=== PATIENT | male | born 1950 | race Caucasian/White ===

== ENCOUNTER 2023-10-29 13:25 | Outpatient (OUT) | payer MEDICARE, OTHER, SELFPAY ==
--- NOTE | 2023-10-29 | CONS_ITS ---
CONSULTATION DATE: 10/29/2023 TO: Dr. Eloy Marin CHIEF COMPLAINT: Includes left lower back pain. HISTORY OF PRESENT ILLNESS: Review of systems, past medical/surgical history were obtained and documented on the health questionnaire and is available upon request. He is a 73-year-old male. He reports having had pain since May of 2023. It occurred spontaneously and increased gradually to its present state. He is now complaining of 2-7/10 pain, sharp in character with a shooting component, increased with activities such as standing, walking and performing transitioning maneuvers. He feels most comfortable in the semi-recumbent position. Denies any change in bowel and bladder habits or new sensorimotor changes in the lower extremities. CURRENT MEDICATIONS: Include prednisone 5 mg daily p.r.n. and glucosamine. His MEHRAN on today?s visit was 8%. EXAMINATION: Notable for patient having no clinical radiculopathy or myelopathy involving his lower extremities. Patient had severe pain with lumbar facet joint loading maneuvers occurring on the left side at L4-5, L5-S1 with associated myofascial spasm of his lumbar paravertebral muscles. IMPRESSION: Our impression is patient appears to have chronic pain secondary to lumbosacral spondylosis and facet loading pain clinically. RECOMMENDATIONS: I recommend the patient proceed with a diagnosis left sided L4-5, L5-S1 medial branch block under fluoroscopic guidance. I have placed him on baclofen for the myofascial spasm, 10 mg pills, half a pill to one pill b.i.d. as tolerated. As part of providing excellent, safe, comprehensive care, the following was completed at our patient's visit: 1. A medication reconciliation and review to ensure accurate knowledge of current/active medications, including asking our patients to inform us about any [id number] medications or herbal remedies/nutritional supplements/alternative remedies. 2. A review to specifically ensure our patients have had annual screening for: elevated body mass index (BMI, see intake chart for exact total), tobacco use, screening for depression, and screening for unhealthy alcohol use. When screening is concerning, patients are provided with education and the specific recommendation to discuss the concerning health issue and treatment options with their primary care provider. JESSE
== END 2023-10-29 13:26 | disposition home or self-care (01) ==
LOC: PM 13:26
PROVIDERS: PCP Family Medicine; Visit Provider Anesthesiology
DX: M47.816 Spondylosis without myelopathy or radiculopathy, lumbar region (principal); M54.50 Low back pain, unspecified
CPT/HCPCS: G0463

== ENCOUNTER 2023-11-12 06:59 | Day surgery (SDC) | payer MEDICARE, OTHER, SELFPAY ==
--- OUTSIDE RECORDS SUMMARY | 2023-11-12 07:05 | XMS_ITS | CCD ---
Author Name Unknown Address [id number] [place] [address] Organization [facility] Care Team Providers Care Pcu Rn Name Role Phone SONAM ZAMBRANO Consulting Unavailable ISACC, LINK Attending Unavailable ISACC, LINK Admitting Unavailable WHITNEY, DR LORENZO Dailey Primary Care Unavailable WHITNEY, DR LORENZO Dailey Primary Care Unavailable DINORAH, DR SHANTEL Michael Consulting Unavailable ISACC, LINK Attending Unavailable ISACC, LINK Admitting Unavailable PAWANANDER, LINK Consulting Unavailable JOHANA CAMILO Consulting Unavailable CESAR MALDONADO Consulting Unavailable SAMANTHA, LAKSHIM Consulting Unavailable PAWANANDER, LINK Attending Unavailable DAMASO, DR DEBORAH Jack Consulting Unavailable PAWANANDER, LINK Admitting Unavailable ISACC, LINK Consulting Unavailable WHITNEY, DR LORENZO Dailey Primary Care Unavailable ISACC, LINK Attending Unavailable ISACC, LINK Consulting Unavailable ISACC, LINK Admitting Unavailable Lorenzo OLSON Primary Care Physician Lucy Bhatti Unavailable Unavailable Christie Lemus Unavailable Unavailable Lorenzo Olson DO Primary Care Provider Lorenzo Olson DO Primary Care Provider Sera Welch Unavailable Unavailable THALIA TROY Referring Unavailable THALIA TROY Attending Unavailable THALIA TROY Attending Unavailable THALIA TROY Referring Unavailable DO Lorenzo Olson Primary Care Provider MD Nick Anderson Attending Provider Nick Anderson MD Unavailable Dania Vásquez MD Unavailable [phone] Wild [employer] SUPERVISOR.REMARKETING REP, Ryan Unavailable [phone] Gerald VAUGHAN, Denisha Unavailable WHITNEYLORENZO Primary Care Unavailable HANG MAIER Attending Unavailable WHITNEY, LORENZO Dailey Primary Care Unavailable HANG MAIER Attending Unavailable HANG MAIER Admitting Unavailable [place] VAUGHAN, Chelsie Dahl Unavailable Unavailable Darin Valencia Unavailable Whitney, Lorenzo Dailey Primary Care Provider JM Torres Attending Provider DEBORAH NORMAN Referring Unavailable WHITNEY, LORENZO Dailey Primary Care Unavailable Whitney , Lorenzo Dailey Primary Care Provider Gerald VAUGHAN, Denisha Unavailable [phone] [place] VAUGHAN, Chelsie Dahl Unavailable Unavailable Lorenzo OLSON Primary Care Physician [phone] Whitney, Lorenzo Dailey Primary Care Provider JM Torres Attending Provider WhitneyLorenzo Primary Care Unavailable Torres, Valencia Admitting Unavailable Darin Valencia Attending Unavailable Lorenzo Olson Primary Care Unavailable Nick Anderson Admitting Unavailable Nick Anderson Attending Unavailable Darin Valencia Admitting Unavailable Valencia Torres Attending Unavailable Lorenzo Olson Primary Care Unavailable Torres, Valencia Admitting Unavailable Valencia Torres Attending Unavailable Lorenzo Olson Primary Care Unavailable CHELSIE FERNANDO Attending Unavailable NONE, XXXX Referring Unavailable Santiago Kong Admitting Unavaila Santiago Floewr Attending Unavaila Corey Bob Admitting Unavailable Corey MCKEE Attending Unavailable Corey MCKEE Referring Unavailable STANDania, ARACELY Cyndee L Referring Unavailable Santiago Kong Consulting Unavaila ble STANDania, REMARKETING REP Cyndee L Admitting Unavailable STANDania, REMARKETING REP Cyndee L Attending Unavailable Santiago Kong Consulting Unavaila ble Santiago Kong Consulting Unavaila ble Lorenzo OLSON Attending Unavailable Corey MCKEE Attending Unavailable Corey MCKEE Attending Unavailable Bryon Cruz Admitting Unavailable Bryon Cruz Attending Unavailable Ryan Hollis Admitting Unavailable Ryan Hollis Attending Unavailable Ryan Hollis Referring Unavailable Yuridia Houser Attending Unavailable WHITNEY Lorenzo Asim Referring Unavailable LUZ Torres Admitting UnavailCyndee Ayers Attending Unavailable MD Bryon Cruz Admitting Unavailable VALENCIA TORRES Referring Unavailable Bryon Cruz Attending Unavailable Bryon Cruz Attending Unavailable Bryon Cruz Referring Unavailable NONE, XXXX Referring Unavailable STANG, REMARKETING REP Cyndee L Admitting Unavailable STANDania, REMARKETING REP Cyndee L Attending Unavailable WHITNEY, LORENZO S Primary Care Unavailable WHITNEY, [facility] Primary Care Unavailable NICK ANDERSON Referring Unavailable WHITNEY, [facility] Primary Care Unavailable NICK ANDERSON Referring Unavailable WHITNEY, [facility] Primary Care Unavailable NICK ANDERSON Attending Unavailable NICK ANDERSON Referring Unavailable WHITNEY, [facility] Primary Care Unavailable DEBORAH NORMAN Attending Unavailable NICK ANDERSON Referring Unavailable WHITNEY, [facility] Primary Care Unavailable NICK ANDERSON Referring Unavailable WHITNEY, [facility] Primary Care Unavailable NICK ANDERSON Referring Unavailable NICK ANDERSON Attending Unavailable WHITNEY, [facility] Primary Care Unavailable RYAN HOLLIS Referring Unavailable WHITNEY, [facility] Primary Care Unavailable WHITNEY, [facility] Primary Care Unavailable NICK ANDERSON Referring Unavailable WHITNEY, [facility] Primary Care Unavailable DEBORAH NORMAN Referring Unavailable WHITNEY, [facility] Primary Care Unavailable NICK ANDERSON Attending Unavailable NICK ANDERSON Referring Unavailable WHITNEY, [facility] Primary Care Unavailable DEBORAH NORMAN Referring Unavailable WHITNEY, [facility] Primary Care Unavailable NICK ANDERSON Referring Unavailable WHITNEY, [facility] Primary Care Unavailable WHITNEY, [facility] Primary Care Unavailable Dania VÁSQUEZ Attending Unavailable WHITNEY, [facility] Primary Care Unavailable NICK ANDERSON Attending Unavailable WHITNEY, [facility] Primary Care Unavailable NICK ANDERSON Referring Unavailable RYAN HOLLIS Attending Unavailable WHITNEY, [facility] Primary Care Unavailable NICK ANDERSON Referring Unavailable WHITNEY, [facility] Primary Care Unavailable NICK ANDERSON Referring Unavailable WHITNEY, [facility] Primary Care Unavailable WHITNEY, [facility] Primary Care Unavailable HOA GURROLA Attending Unavailabl e WHITNEY, [facility] Primary Care Unavailable Dania VÁSQUEZ Attending Unavailable WHITNEY, [facility] Primary Care Unavailable MARIE KEY Referring Unavailable WHITNEY, [facility] Primary Care Unavailable MARIE KEY Referring Unavailable WHITNEY, [facility] Primary Care Unavailable DEBORAH NORMAN Referring Unavailable WHITNEY, [facility] Primary Care Unavailable WHITNEY, [facility] Primary Care Unavailable NICK ANDERSON Referring Unavailable WHITNEY, LORENZO S Primary Care Unavailable NICK ANDERSON Referring Unavailable WHITNEY, LORENZO S Primary Care Unavailable NICK ANDERSON Referring Unavailable WHITNEY, LORENZO S Primary Care Unavailable WHITNEY, LORENZO S Primary Care Unavailable NICK ANDERSON Referring Unavailable NICK ANDERSON Attending Unavailable WHITNEY, LORENZO S Primary Care Unavailable NICK ANDERSON Referring Unavailable WHITNEY, LORENZO S Primary Care Unavailable WHITNEY, LORENZO S Primary Care Unavailable Dania VÁSQUEZ Attending Unavailable WHITNEY, LORENZO S Primary Care Unavailable NICK ANDERSON Referring Unavailable WHITNEY, LORENZO S Primary Care Unavailable NICK ANDERSON R Referring Unavailable WHITNEY, LORENZO S Primary Care Unavailable WHITNEY, LORENZO S Primary Care Unavailable NICK ANDERSON Attending Unavailable NICK ANDERSON Referring Unavailable WHITNEY, LORENZO S Primary Care Unavailable NICK ANDERSON Referring Unavailable WHITNEY, LORENZO S Primary Care Unavailable NICK ANDERSON Referring Unavailable WHITNEY, LORENZO S Primary Care Unavailable NICK ANDERSON Referring Unavailable RYAN HOLLIS Attending Unavailable WHITNEY, LORENZO S Primary Care Unavailable NICK ANDERSON Referring Unavailable WHITNEY, LORENZO S Primary Care Unavailable HOA GURROLA Attending UnavailNICK Shane Referring Unavailable WHITNEY, LORENZO S Primary Care Unavailable NICK ANDERSON Referring Unavailable WHITNEY, LORENZO S Primary Care Unavailable MERT KRUEGER Attending Unavailable RYAN HOLLIS Referring Unavailable WHITNEY, LORENZO S Primary Care Unavailable WHITNEY, LORENZO S Primary Care Unavailable WHITNEY, LORENZO S Primary Care Unavailable Dania VÁSQUEZ Attending Unavailable WHITNEY, LORENZO S Primary Care Unavailable Dania VÁSQUEZ Attending Unavailable WHITNEY, LORENZO S Primary Care Unavailable WHITNEY, LORENZO S Primary Care Unavailable WHITNEY, LORENZO S Primary Care Unavailable NICK ANDERSON Referring Unavailable WHITNEY, LORENZO S Primary Care Unavailable NICK ANDERSON Referring Unavailable WHITNEY, LORENZO S Primary Care Unavailable NICK ANDERSON Attending Unavailable NICK ANDERSON Referring Unavailable WHITNEY, LORENZO S Primary Care Unavailable NICK ANDERSON Referring Unavailable WHITNEY, LORENZO S Primary Care Unavailable NICK ANDERSON Referring Unavailable NICK ANDERSON Attending Unavailable WHITNEY, LORENZO S Primary Care Unavailable NICK ANDERSON Referring Unavailable WHITNEY, LORENZO S Primary Care Unavailable Dania VÁSQUEZ Attending Unavailable WHITNEY, LORENZO S Primary Care Unavailable NICK ANDERSON Attending Unavailable NICK ANDERSON Referring Unavailable WHITNEY, LORENZO S Primary Care Unavailable NICK ANDERSON Referring Unavailable WHITNEY, LORENZO S Primary Care Unavailable NICK ANDERSON Referring Unavailable WHITNEY, LORENZO S Primary Care Unavailable WHITNEY, LORENZO S Primary Care Unavailable WHITNEY, LORENZO S Primary Care Unavailable NICK ANDERSON Attending Unavailable WHITNEY, LORENZO S Primary Care Unavailable WHITNEY, LORENZO S Primary Care Unavailable WHITNEY, LORENZO S Primary Care Unavailable MARK VALLADARES Attending Unavailable MARK VALLADARES Admitting Unavailable WHITNEY, LORENZO S Primary Care Unavailable RENEE TAYLOR Attending Unavailable EMERSON, DEBORAH Referring Unavailable WHITNEY, LORENZO S Primary Care Unavailable DEBORAH GOMEZ Attending Unavailable EMERSON, DEBORAH Referring Unavailable WHITNEY, LORENZO Dailey Primary Care Unavailable EMERSON, DEBORAH Referring Unavailable SYBIL PROCTOR Attending Unavailable WHITNEY, LORENZO S Primary Care Unavailable Allergies Allergy Classification Reported Allergen(s) Allergy Type Date of Onset Reaction(s) Facility (1 source) Penicillin; 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: [penicillin] Drug Allergy [facility] Repository Medications Current Medications Medication Drug Class(es) Dates Sig (Normalized) Sig (Original) acetaminophen 325 mg / HYDROcodone bitartrate 5 mg oral tablet (20 sources) Opioid Agonist Start: 04-02-2023 Coggon 325 mg-5 mg oral tablet 1 tab(s), Oral, q6hr as needed for pain, 10 tab(s), Refill(s) 0, [facility] #[id number], 188, cm, 04/02/23 10:50:00 EDT, Height/Length Dosing, 100, kg, 04/02/23 10:50:00 EDT, Weight Dosing Start Date: 04/02/23 Status: Ordered Start: 03-18-2023 Coggon 325 mg-5 mg oral tablet 1 tab(s), Oral, q6hr as needed for pain, 10 tab(s), Refill(s) 0, [facility] #[id number], 188, cm, 03/18/23 10:50:00 EDT, Height/Length Dosing, 111, kg, 03/18/23 10:50:00 EDT, Weight Dosing Start Date: 03/18/23 Status: Ordered Start: 10-24-2022 acetaminophen- hydrocodone 325 mg-5 mg oral tablet Refill(s) 0 Start Date: 10/24/22 Status: Ordered Start: 10-08-2022 End: 07-09-2023 take 1 tablet by mouth every eight hours as needed for pain HYDROcodone-acetaminophen (NORCO) 5-325 mg per tablet Indications: Rectal adenocarcinoma (HCC) Take 1 tablet by mouth every 8 hours as needed for pain. 30 tablet 0 10/23/2022 07/09/2023 Discontinued Comment on above: Take 1 tablet by blake th every 8 hours as needed for pain. ascorbic acid 1000 mg oral tablet (20 sources) Vitamin C Start: 10-22-2019 take 1000 mg by mouth once daily Vitamin C 1,000 mg, Oral, Daily, Refills(s) 0, Prophylaxis Start Date: 10/22/19 Status: Ordered take 1 tablet by mouth twice igor ly Ascorbic Acid 100 mg tablet Take 100 mg by mouth twice daily. 0 Active take 1 tablet by mouth once opal y Ascorbic Acid 100 mg tablet Take 100 mg by mouth once daily. 0 Active Comment on above: Take 100 mg by mouth once daily. Take 100 mg by mouth twice daily. Azithromycin (15 sources) Macrolide Antimicrobial Start: 10-09-2023 azithromycin 250 mg Tab Refills(s) 0 Start Date: 10/09/23 Status: Ordered Start: 03-18-2023 End: 03-23-2023 azithromycin (ZITHROMAX) 250 mg tablet Take by mouth. 0 03/18/2023 03/23/2023 Active Start: 09-24-2022 End: 10-02-2022 take 2 tablets by mouth once daily, then take 1 tablet by mouth once daily azithromycin (ZITHROMAX Z-PA) 250 mg tablet Take two (2) tablets by mouth the first day and then one (1) tablet daily for 4 days. 6 tablet 0 09/24/2022 10/02/2022 Discontinued Comment on above: Take two (2) tablets by mouth the first day and then one (1) tablet daily for 4 days. Take by mouth. Chondroitin Sulfate (5 sources) Chondroitin Sulf ate Active Chondroitin Sulfates / Glucosamine (20 sources) Start: 02-13-20 Glucosamine Chondroitin 1500mg/1200mg, Oral, Daily, Refill(s) 0, Prophylaxis Start Date: 02/12/19 Status: Ordered cyclobenzaprine hydrochloride 5 mg oral tablet (20 sources) Muscle Relaxant Start: 06-18-20 take 1 tablet by mouth every twenty-four hours Cyclobenzaprine HCl 5 MG 1 tablet at bedtime as needed Orally Once a day for 30 day(s) May, Active Start: 03-18-2023 cyclobenzaprin e (FLEXERIL) 10 mg tablet Take 10 mg by mouth. 0 03/18/2023 Active Comment on above: Take 10 mg by mouth. diphenhydrAMINE hydrochloride 25 mg oral capsule (5 sources) Histamine-1 Receptor Antagonist take 1 capsule by mouth every twenty-four hours diphenhydrAMINE HCl 25 MG 1 capsule at bedtime as needed Orally Once a day Active enteric contrast (will be provided with radiology test) (20 sources) Start: 06-25-20 End: 06-26-20 enteric contrast (will be provided with radiology test) For CT Chest Abdomen W IVCON order Administer, As Directed One Time Only, via Oral, Rectal, both Oral and Rectal, Enteric Tube, Stoma or Indwelling Catheter, Enteric Contrast as designated per enteric contrast guidelines 1 Each 0 06/25/2023 06/26/2023 Active Start: 05-03-2023 End: 05-04-2023 enteric contrast (will be pr ovided with radiology test) For CT Chest Abdomen W IVCON order Administer, As Directed One Time Only, via Oral, Rectal, both Oral and Rectal, Enteric Tube, Stoma or Indwelling Catheter, Enteric Contrast as designated per enteric contrast guidelines 1 Each 0 05/03/2023 05/04/2023 Active Start: 05-03-[address] (will be provided with radiology test) MRI RECTUM WO/W. Administer, As Directed One Time Only, via Oral, Rectal, both Oral and Rectal, Enteric Tube, Stoma or Indwelling Catheter, Enteric Contrast as designated per enteric contrast guidelines 1 Each 0 05/03/2023 Active Start: 02-07-[address] (will be provided with radiology test) MRI RECTUM WO/W. Administer, As Directed One Time Only, via Oral, Rectal, both Oral and Rectal, Enteric Tube, Stoma or Indwelling Catheter, Enteric Contrast as designated per enteric contrast guidelines 1 Each 0 02/07/2023 Active Start: 11-19-2022 End: 11-20-2022 enteric contrast (will be pr ovided with radiology test) For CT CHESTABD/PEL W IVCON Routine order Administer, As Directed One Time Only, via Oral, Rectal, both Oral and Rectal, Enteric Tube, Stoma or Indwelling Catheter, Enteric Contrast as designated per enteric contrast guidelines 1 Each 0 11/19/2022 11/20/2022 Active Comment on above: For CT CHESTABD/PEL W IVCON Routine order Administer, As Directed One Time Only, via Oral, Rectal, both Oral and Rectal, Enteric Tube, Stoma or Indwelling Catheter, Enteric Contrast as designated per enteric contrast guidelines MRI RECTUM WO/W. Adm inister, As Directed One Time Only, via Oral, Rectal, both Oral and Rectal, Enteric Tube, Stoma or Indwelling Catheter, Enteric Contrast as designated per enteric contrast guidelines For CT Chest Abdomen W IVCON order Administer, As Directed One Time Only, via Oral, Rectal, both Oral and Rectal, Enteric Tube, Stoma or Indwelling Catheter, Enteric Contrast as designated per enteric contrast guidelines finasteride 5 mg oral tablet (20 sources) 5-alpha Reductase Inhibitor Start: 3 End: 3 finasteride (PROSCAR) 5 mg tablet Take by mouth once daily. 0 10/24/2022 10/19/2023 Active Comment on above: Take by mouth. Take by mouth once d aily. folic acid 1 mg oral tablet (20 sources) Start: 1 take 1 tablet by mouth once daily folic acid 1 mg Tab 1 mg = 1 tab(s), Oral, Daily, tab(s), Refills(s) 0, Prophylaxis Start Date: 04/16/11 Status: Ordered Comment on above: Take 1 mg by mouth o nce daily. gabapentin 100 mg oral capsule (8 sources) Anti-epileptic Agent Start: 3 gabapentin 100 mg Cap 100 mg = 1 cap(s), Refills(s) 0 Start Date: 10/09/23 Status: Ordered Start: 07-16-2023 take 1 capsule by [facility] every twenty-four hours Gabapentin 100 MG 1 capsule Orally Once a day for 30 day(s) Jun, Active Start: 06-20-2023 End: 07-20-2023 take 1 capsule by mouth once daily at bedtime gabapentin (NEURONTIN) 300 mg capsule Take 1 capsule by mouth daily at bedtime for 30 days. 30 capsule 0 06/20/2023 Active Comment on above: Take 1 capsule by mo [facility] daily at bedtime for 30 days. glucosamine hydrochloride 1500 mg oral tablet (20 sources) take 1 tablet by mouth once daily Glucosamine HCl 1500 MG 1 tablet Orally Once a day Active End: 12-20-2022 take 1 tablet by mouth once daily Glucosamine Sulfate 500 mg tab Take 1 tablet by mouth once daily. 0 12/20/2022 Discontinued Comment on above: Take 1 tablet by blake th. Take 1 tablet by blake th once daily. iv contrast (will be provided with radiology test) (20 sources) Start: 06-25-2023 End: 06-26-2023 iv contrast (will be provided with radiology test) CT Chest Abdomen-Inject, intravenously, once for 1 dose.No IV access, insert saline lock prior to the beginning of sedation, infusion, injection of imaging exam. Discontinue saline lock post exam. If Pt. has a central line or IVAD, may access for administration according to line specific nursing protocol. Once exam is complete flush line and de-access according to line specific nursing protocol in the CT contrast administration guidelines link. 1 Each 0 06/25/2023 06/26/2023 Active Start: 05-03-2023 End: 05-04-2023 iv contrast (will be provide d with radiology test) CT Chest Abdomen-Inject, intravenously, once for 1 dose.No IV access, insert saline lock prior to the beginning of sedation, infusion, injection of imaging exam. Discontinue saline lock post exam. If Pt. has a central line or IVAD, may access for administration according to line specific nursing protocol. Once exam is complete flush line and de-access according to line specific nursing protocol in the CT contrast administration guidelines link. 1 Each 0 05/03/2023 05/04/2023 Active Start: 05-03-2023 iv contrast (w ill be provided with radiology test) MRI Rectum Inject, intravenously, once for 1 dose. No IV access, insert saline lock prior to the beginning of sedation, infusion, injection of imaging exam. Discontinue saline lock post exam. If Pt has a central line or IVAD, may access for administration according to line specific nursing protocol. Once exam is complete flush line and de-access according to line specific nursing protocol in the MR contrast administration guidelines link. 1 Each 0 05/03/2023 Active Start: 02-07-2023 iv contrast (w ill be provided with radiology test) MRI Rectum Inject, intravenously, once for 1 dose. No IV access, insert saline lock prior to the beginning of sedation, infusion, injection of imaging exam. Discontinue saline lock post exam. If Pt has a central line or IVAD, may access for administration according to line specific nursing protocol. Once exam is complete flush line and de-access according to line specific nursing protocol in the MR contrast administration guidelines link. 1 Each 0 02/07/2023 Active Start: 11-19-2022 End: 11-20-2022 iv contrast (will be provide d with radiology test) CT Chest ABD/PEL-Inject, intravenously, once for 1 dose.No IV access, insert saline lock prior to the beginning of sedation, infusion, injection of imaging exam. Discontinue saline lock post exam. If Pt. has a central line or IVAD, may access for administration according to line specific nursing protocol. Once exam is complete flush line and de-access according to line specific nursing protocol in the CT contrast administration guidelines link. 1 Each 0 11/19/2022 11/20/2022 Active Start: 09-17-2022 End: 09-18-2022 iv contrast (will be provide d with radiology test) MRI ABDOMEN Inject, intravenously, once for 1 dose. No IV access, insert saline lock prior to the beginning of sedation, infusion, injection of imaging exam. Discontinue saline lock post exam. If Pt. has a central line or IVAD, may access for administration according to line specific nursing protocol. Once exam is complete flush line and de-access according to line specific nursing protocol in the MR contrast administration guidelines link. 1 Each 0 09/17/2022 09/18/2022 Active Comment on above: MRI ABDOMEN Inject, intravenously, once for 1 dose. No IV access, insert saline lock prior to the beginning of sedation, infusion, injection of imaging exam. Discontinue saline lock post exam. If Pt. has a central line or IVAD, may access for administration according to line specific nursing protocol. Once exam is complete flush line and de-access according to line specific nursing protocol in the MR contrast administration guidelines link. CT Chest ABD/PEL-Inj ect, intravenously, once for 1 dose.No IV access, insert saline lock prior to the beginning of sedation, infusion, injection of imaging exam. Discontinue saline lock post exam. If Pt. has a central line or IVAD, may access for administration according to line specific nursing protocol. Once exam is complete flush line and de-access according to line specific nursing protocol in the CT contrast administration guidelines link. MRI Rectum Inject, i ntravenously, once for 1 dose. No IV access, insert saline lock prior to the beginning of sedation, infusion, injection of imaging exam. Discontinue saline lock post exam. If Pt has a central line or IVAD, may access for administration according to line specific nursing protocol. Once exam is complete flush line and de-access according to line specific nursing protocol in the MR contrast administration guidelines link. CT Chest Abdomen-Inj ect, intravenously, once for 1 dose.No IV access, insert saline lock prior to the beginning of sedation, infusion, injection of imaging exam. Discontinue saline lock post exam. If Pt. has a central line or IVAD, may access for administration according to line specific nursing protocol. Once exam is complete flush line and de-access according to line specific nursing protocol in the CT contrast administration guidelines link. leflunomide 10 mg oral tablet (20 sources) Antirheumatic Agent Start: 2010 End: 2021 take 10 mg by mouth once daily leflunomide 10 mg, Oral, Daily, Refills(s) 0, Other (see comment) Start Date: 04/16/11 Status: Ordered Comment on above: Take 10 mg by mouth once daily. methylPREDNISolone 4 mg tab dosepak (1 source) Start: 2022 take 1 tablet by mouth once methylPREDNISolone 4 mg tab dosepak = 1 packet(s), Oral, Once, as directed on package labeling, X 6 day(s), # 21 tab(s), Refills(s) 0 Start Date: 10/09/23 Status: Ordered MiraLax oral powder for reconstitution (2 sources) Start: 2021 MiraLax oral powder for reconstitution 17 gram, Oral, Daily, 527 gram, Refill(s) 0, dissolve in water before taking, [facility] JOYCELYN KNOX, 188, cm, 01/02/22 10:27:00 EDT, Height/Length Dosing, 112, kg, 01/02/22 10:27:00 EDT, Weight Dosing Start Date: 01/02/22 Status: Ordered ondansetron 4 mg oral tablet (20 sources) Serotonin-3 Receptor Antagonist Start: 2022 take 2 tablets by mouth every eight hours as needed for nausea ondansetron 4 mg Tab 8 mg = 2 tab(s), Oral, q8hr, PRN Nausea, Refills(s) 0 Start Date: 05/07/23 Status: Ordered Start: 10-01-2022 End: 07-09-2023 take 1 tablet by mouth every eight hours as needed ondansetron (ZOFRAN) 8 mg tablet Take 1 tablet by mouth every 8 hours as needed for nausea/vomiting. 90 tablet 1 10/01/2022 07/09/2023 Discontinued take 1 tablet by blake th once daily as needed Ondansetron 8 MG 1 tablet on the tongue and allow to dissolve as needed Orally Once a day Active Comment on above: Take 1 tablet by blake th every 8 hours as needed for nausea/vomiting. polyethylene glycol 3350 [id number] mg powder for oral solution (7 sources) Osmotic Laxative Start: MiraLax oral powder for reconstitution 17 gram, Oral, Daily, 527 gram, Refill(s) 0, dissolve in water before taking, [facility], 188, cm, 01/02/22 10:27:00 EDT, Height/Length Dosing, 112, kg, 01/02/22 10:27:00 EDT, Weight Dosing Start Date: 01/02/22 Status: Ordered potassium citrate 10 meq extended release oral tablet (13 sources) Start: End: take 1 tablet by mouth twice daily potassium CITRATE 10 mEq ER Tab 10 mEq, 1 tab(s), Oral, BID, 180 tab(s), Refill(s) 3, [facility], [facility], cm, 09/28/21 13:33:00 EST, Height/Length Dosing, 112.4, kg, 09/28/21 13:33:00 EST, Weight Dosing Start Date: 09/28/21 Status: Ordered Start: 09-28-2021 take 1 tablet by blake th twice daily potassium CITRATE 10 mEq ER Tab 10 mEq, 1 tab(s), Oral, BID, 180 tab(s), Refill(s) 3, [facility], 188, cm, 09/28/21 13:33:00 EST, Height/Length Dosing, 112.4, kg, 09/28/21 13:33:00 EST, Weight Dosing Start Date: 09/28/21 Status: Ordered Comment on above: Take by mouth. predniSONE 5 mg oral tablet (20 sources) Start: 04-02-2023 predniSONE 10 mg Tab 0 = 1 -, Oral, As Directed, Take 5 tabs by mouth daily x3 days, 4 daily x3 days, 3 daily x3 days, 2 daily x3 days, then 1 tab daily x3 days., # 45 tab(s), Refills(s) 0, Pharmacy: [facility] #[id number], 188, cm, 04/02/23 10:50:00 EDT, Height/Length Dosing, 1... Start Date: 04/02/23 Status: Ordered Start: 09-28-2022 [facility] 5 tablets by [facility] once daily, then take 4 tablets by mouth once daily, then take 3 tablets by mouth once daily, then take 2 tablets by mouth once daily, then take 1 tablet by mouth once daily predniSONE 10 mg Tab See Instructions, Take 5 tabs by mouth daily x3 days, 4 daily x3 days, 3 daily x3 days, 2 daily x3 days, then 1 tab daily x3 days., # 45 tab(s), Refills(s) 0, Pharmacy: [facility]/pharmacy #[id number], 187.6, cm, 08/20/22 7:01:00 EDT, Height/Length Dosing, 112.5,... Start Date: 09/28/22 Status: Ordered Start: 09-03-2022 predniSONE (DE LTASONE) 10 mg tablet 5 mg. 0 09/03/2022 Active Start: 09-03-2022 predniSONE (DE LTASONE) 10 mg tablet Start: 08-14-2022 take 1 tablet by blake once daily predniSONE (DELTASONE) 5 mg tablet Take 5 mg by mouth once daily. 0 09/03/2022 Active Start: 07-09-2022 predniSONE 10 mg Tab See Instructions, 6 tabs for 2 days,5 tabs for 2 days,4 tabs for 2 days,3 tabs for 2 days,2 tabs for 2 days,1 tab for 2 days, # 42 tab(s), Refills(s) 1, Pharmacy: [facility], 189, cm, 05/31/22 10:57:00 EDT, Height/Length Dosing,... Start Date: 07/09/22 Status: Ordered Start: 04-05-2022 predniSONE 10 mg Tab See Instructions, 6 tabs for 2 days,5 tabs for 2 days,4 tabs for 2 days,3 tabs for 2 days,2 tabs for 2 days,1 tab for 2 days, # 42 tab(s), Refills(s) 0, [facility], cm, 04/03/22 10:57:00 EDT, Height/Length Dosing, 110, k... Start Date: 04/05/22 Status: Ordered Start: 01-02-2022 End: 04-02-2022 take 1 tablet by mouth once daily predniSONE 5 mg Tab 5 mg = 1 tab(s), Oral, Daily, X 30 day(s), # 30 tab(s), Refills(s) 2, Pharmacy: [facility], 188, cm, 01/02/22 10:27:00 EDT, Height/Length Dosing, 112, kg, 01/02/22 10:27:00 EDT, Weight Dosing Start Date: 01/02/22 Stop Date: 04/02/22 Status: Ordered Comment on above: 5 mg. Take 5 mg by mouth o nce daily. prochlorperazine 10 mg oral tablet (20 sources) Phenothiazine Start: 2 End: 3 prochlorperazine 10 mg Tab Refills(s) 0 Start Date: 10/24/22 Status: Ordered take 1 tablet by blake th every eight hours Prochlorperazine Maleate 10 MG 1 tablet as needed Orally Three times a day Active Comment on above: Take 1 tablet by blake th every 6 hours as needed. rivaroxaban 15 mg oral tablet (20 sources) Factor Xa Inhibitor Start: 10-09-2023 Xarelto 15 mg oral tablet 15 mg = 1 tab(s), Oral, Refills(s) 0 Start Date: 10/09/23 Status: Ordered Start: 02-19-2023 End: 09-26-2023 take 1 tablet by mouth once daily at dinner XARELTO 20 mg tablet TAKE ONE TABLET BY MOUTH DAILY WITH DINNER 90 tablet 3 09/26/2023 Active Start: 01-23-2023 End: 05-06-2023 take 1 tablet by mouth twice daily at mealtime rivaroxaban (XARELTO DVT-PE TREAT 30D START) 15 mg (42)- 20 mg (9) DsPk Take 1 tablet (15 mg) by mouth twice daily with food for 21 days. Then take 1 tablet (20 mg) by mouth once daily with food for 9 days. 51 tablet 0 01/23/2023 05/06/2023 Discontinued (Course of therapy completed) Comment on above: Take 1 tablet (15 mg ) by mouth twice daily with food for 21 days. Then take 1 tablet (20 mg) by mouth once daily with food for 9 days. Take 1 tablet by blake th daily with dinner. TAKE ONE TABLET BY M OUTH DAILY WITH DINNER sildenafil 20 mg oral tablet (13 sources) Phosphodiesterase 5 Inhibitor Start: End: sildenafil 20 mg oral tablet See Instructions, Take 2 to 5 tablets po prior to sexual activity, # 30 tab(s), Refills(s) 2, Pharmacy: [id number], 188, cm, 01/02/22 10:27:00 EDT, Height/Length Dosing, 112, kg, 01/02/22 10:27:00 EDT, Weight Dosing Start Date: 01/02/22 Status: Ordered Comment on above: Take 20 mg by mouth as needed. tadalafil 20 mg oral tablet (11 sources) Phosphodiesterase 5 Inhibitor Start: 023 Cialis 20 mg Tab See Instructions, PRN for erectile dysfunction, 1 tab(s) Oral 30-60 mins prior to intercourse. do not exceed 1 tab/24 hrs., # 15 tab(s), Refills(s) 6, [facility]acy: [facility] #[id number], 188, cm, 10/24/22 10:33:00 EST, Height/Length Dosing, 112, kg, 10/24/22 10:33:00 EST, Weight Dosing Start Date: 10/24/22 Status: Ordered tamsulosin hydrochloride 0.4 mg oral capsule (20 sources) alpha-Adrenergic Taina Start: 021 take 1 capsule by mouth twice daily Flomax 0.4 mg Cap 0.4 mg = 1 cap(s), Oral, BID, # 180 cap(s), Refills(s) 3, Pharmacy: [facility], 188, cm, 05/07/23 13:45:00 EDT, Height/Length Dosing, 109, kg, 05/07/23 13:45:00 EDT, Weight Dosing Start Date: 05/19/23 Status: Ordered take 1 capsule by [facility] every twenty-four hours Tamsulosin HCl 0.4 MG 1 capsule Orally Once a day Active Comment on above: Take 0.4 mg by mouth . Take 0.4 mg by mouth twice daily. Vitamin C 500 MG (5 sources) Vitamin C 500 MG as directed Orally Active Completed/Discontinued Medications Medication Drug Class(es) Dates Sig (Normalized) Sig (Original) acetaminophen 325 mg oral capsule (20 sources) acetaminophen 32 5 mg cap Take by mouth as needed. 0 Active take 1 capsule by mouth every si x hours Acetaminophen 500 MG 1 capsule as needed Orally every 6 hrs Active Comment on above: Take by mouth. Take by mouth as nee ded. acetaminophen 500 mg / diphenhydrAMINE hydrochloride 25 mg oral tablet (20 sources) Histamine-1 Receptor Antagonist take 1 tablet by mouth once daily at bedtime diphenhydrAMINE-Acet aminophen (TYLENOL PM EXTRA STRENGTH) 25-500 mg tab Take 1 tablet by mouth daily at bedtime. 0 Active Comment on above: Take 1 tablet by blake th daily at bedtime. acetaminophen 325 mg / oxyCODONE hydrochloride 5 mg oral tablet (20 sources) Opioid Agonist Start: 11-07-19 End: 07-09-20 take 1 tablet by mouth every six hours as needed for pain oxyCODONE-acetaminop hen (PERCOCET) 5-325 mg tablet Indications: Neoplasm related pain (acute) (chronic) Take 1 tablet by mouth every 6 hours as needed for pain. 100 tablet 0 11/07/2022 04/16/2023 Discontinued Comment on above: Take 1 tablet by blake th every 6 hours as needed for pain. aloe vera extract-allantoin liqd (20 sources) End: 12-18-19 aloe vera extract-allantoin liqd Apply to affected area. 0 12/18/2022 Discontinued aloe vera extrac t-allantoin liqd Apply to affected area. 0 Active Comment on above: Apply to affected ar ea. apixaban (20 sources) Factor Xa Inhibitor Start: 01-23-2023 End: 01-23-2023 take 2 tablets by mouth twice daily, then take 1 tablet by mouth twice daily apixaban (ELIQUIS DVT-PE TREAT 30D START) 5 mg (74 tabs) Take 2 tablets (10 mg) by mouth twice daily for 7 days. Then take 1 tablet (5 mg) by mouth twice daily for 23 days 74 tablet 0 01/23/2023 01/23/2023 Discontinued Start: 06-21-2021 take 1 tablet by blake twice daily Eliquis 2.5 mg oral tablet 2.5 mg = 1 tab(s), Oral, BID, # 60 tab(s), Refills(s) 11, [facility] [address], 187, cm, 06/20/21 9:10:00 EDT, Height/Length Dosing, 109.2, kg, 06/20/21 9:10:00 EDT, Weight Dosing Start Date: 06/21/21 Status: Ordered Start: 07-08-2018 End: 10-02-2022 ELIQUIS 5 mg tab(s) Start: 07-08-2018 take 2 tablets by [facility] twice daily, then take 1 tablet by mouth twice daily ELIQUIS 5 mg tab(s) take 2 tablets by mouth twice a day for 6 days then 1 tablet twice a day 0 07/08/2018 Active Comment on above: take 2 tablets by mo uth twice a day for 6 days then 1 tablet twice a day Take 2 tablets (10 m g) by mouth twice daily for 7 days. Then take 1 tablet (5 mg) by mouth twice daily for 23 days Calcium Carbonate (20 sources) take 1 tablet by mouth every twelve hours Calcium 600 MG 1 tablet with meals Orally Twice a day Active take 1 tablet by mouth once opal y calcium carbonate (CALCIUM 600 ORAL) Take 1 tablet by mouth once daily. 0 Active Comment on above: Take 1 tablet by blake once daily. capecitabine 500 mg oral tablet (20 sources) Nucleoside Metabolic Inhibitor Start: 2 End: 3 take 4 tablets by mouth twice daily at mealtime capecitabine (XELODA) 500 mg tablet Take 4 tablets (2,000 mg) by mouth twice daily with food on days of radiation only (Sat-Sat). 80 tablet 2 10/02/2022 Active Comment on above: Take 4 tablets (2,00 0 mg) by mouth twice daily. Take 4 tablets (2,00 0 mg) by mouth twice daily with food on days of radiation only (Sat-Sat). carvedilol 6.25 mg oral tablet (20 sources) alpha-Adrenergic Taina, beta-Adrenergic Taina Start: 2 take 1 tablet by mouth once daily carvedilol (COREG) 6.25 mg tablet Take 6.25 mg by mouth once daily. 0 09/03/2022 Active Start: 08-12-2020 End: 06-21-2023 take 1 tablet by mouth twice daily at mealtime carvedilol (COREG) 6.25 mg tablet Take 6.25 mg by mouth twice daily with meals. 0 09/03/2022 Active Comment on above: Take 6.25 mg by mout h once daily. Take 6.25 mg by mout h twice daily with meals. ciprofloxacin 500 mg oral tablet (2 sources) Quinolone Antimicrobial Start : 05-16 take 1 tablet by mouth once daily Cipro 500 mg Tab 500 mg = 1 tab(s), Oral, Daily, Take 1 tablet the day before the procedure and 1 tablet after the procedure, # 2 tab(s), Refills(s) 0, [facility]acy: [facility] #[id number], 188, cm, 05/07/23 13:45:00 EDT, Height/Length Dosing, 109, kg, 05/07/23 13:45:00 EDT, Weight Dosing Start Date: 05/16/23 Status: Ordered glucosamine/chondsonja Abraham sod (GLUCOSAMINE-CHONDROITIN) 1,500-1,200 mg/30 mL liqd (20 sources) glucosamine/yaa dr ana Abraham sod (GLUCOSAMINE-CHONDROITIN ) 1,500-1,200 mg/30 mL liqd Take by mouth once daily. 0 Active Comment on above: Take by mouth once d aily. hydroCHLOROthiazide 12.5 mg oral capsule (20 sources) Thiazide Diuretic Start : 04-03 End: 06-21 take 1 capsule by mouth once daily hydroCHLOROthiazide (HYDRODIURIL, ESIDRIX) 12.5 mg capsule Take 12.5 mg by mouth once daily. 0 12/16/2022 Active Comment on above: Take 12.5 mg by mout h once daily. hydrocortisone 25 mg/ml topical cream (20 sources) Corticosteroid Start : 10-24 hydrocortisone (ANUSOL-HC) 2.5 % rectal cream Use applicator to apply to affected area rectally up to twice daily. Limit duration of use to one week or less, due to risk of mucosal thinning. 30 g 0 10/24/2022 Active Start: 10-24-2022 hydrocortisone Top 2.5% Crm Refill(s) 0 Start Date: 10/24/22 Status: Ordered Start: 10-24-2022 hydrocortisone Top 2.5% Crm Refill(s) 0 Start Date: 10/24/22 Status: Ordered Start: 10-23-2022 End: 10-24-2022 apply 28.35 g rectal route twice daily hydrocortisone 2.5 % cream Use applicator to apply to affected area rectally up to twice daily. Limit duration of use to one week or less, due to risk of mucosal thinning. 28.35 g 0 10/23/2022 10/24/2022 Discontinued Start: 10-23-2022 End: 10-23-2022 hydrocortisone (ANUSOL-HC) 2 5 mg suppository 1 Suppository by RECTAL route twice daily. 12 Suppository 2 10/23/2022 Active Start: 08-06-2022 End: 08-20-2022 take 25 mg rectal route twice daily Anusol-HC 25 mg rectal suppository 25 mg = 1 supp, Rectal, BID, X 14 day(s), # 28 supp, Refills(s) 0, Pharmacy: [facility] #[id number], 189, cm, 08/06/22 13:04:00 EDT, Height/Length Dosing, 116.4, kg, 08/06/22 13:04:00 EDT, Weight Dosing Start Date: 08/06/22 Stop Date: 08/20/22 Status: Ordered Comment on above: 1 Suppository by REC APRIL route twice daily. Use applicator to ap ply to affected area rectally up to twice daily. Limit duration of use to one week or less, due to risk of mucosal thinning. ibuprofen 400 mg oral tablet (20 sources) Nonsteroidal Anti-inflammatory Drug End: 3 take 1 tablet by mouth every six hours as needed ibuprofen (MOTRIN) 400 mg tablet Take 400 mg by mouth every 6 hours as needed. 0 12/20/2022 Discontinued Comment on above: Take 400 mg by mouth every 6 hours as needed. methotrexate 2.5 mg oral tablet (13 sources) Folate Analog Metabolic Inhibitor Start: 8 End: 2 take 1 tablet by mouth once methotrexate 2.5 mg tablet Take 2.5 mg by mouth every Saturday. 0 06/25/2018 09/20/2022 Discontinued (Course of therapy completed) Start: 04-16-2011 methotrexate 2 .5 mg, Oral, Saturday, Refills(s) 0, Other (see comment) Start Date: 04/16/11 Status: Ordered Comment on above: Take 2.5 mg by mouth every Saturday. phenyleph/mineral oil/petrolat (PREPARATION H RECTAL) (19 sources) phenyleph/minera l oil/petrolat (PREPARATION H RECTAL) by RECTAL route. 0 Active Comment on above: by RECTAL route. potassium chloride 10 meq extended release oral tablet (15 sources) Start: 04-17-20 23 End: 07-09-20 23 take 1 tablet by mouth once daily potassium chloride (K-TAB) 10 mEq tablet Take 1 tablet by mouth once daily. 30 tablet 1 05/06/2023 07/09/2023 Discontinued Comment on above: Take 1 tablet by blake once daily. spironolactone 25 mg oral tablet (19 sources) Aldosterone Antagonist Start: 04-05-20 21 End: 09-20-20 22 spironolactone (ALDACTONE) 25 mg tablet q 24 HR. 0 04/05/2021 09/20/2022 Discontinued (Course of therapy completed) Start: 04-05-2021 take 1 tablet by blake th once daily spironolactone 25 mg Tab 25 mg, Oral, Daily, # 90 tab(s), Refills(s) 3, Pharmacy: [facility], 187, cm, 03/09/21 13:13:00 EDT, Height/Length Dosing, 110, kg, 05/20/21 13:13:00 EDT, Weight Dosing Start Date: 04/05/21 Status: Ordered Comment on above: q 24 HR. valsartan 80 mg oral tablet (20 sources) Angiotensin 2 Receptor Taina Start: 04-03-2021 End: 06-21-2023 take 1 tablet by mouth once daily valsartan (DIOVAN) 80 mg tablet Take 80 mg by mouth once daily. 0 09/03/2022 Active Comment on above: Take 80 mg by mouth once daily. Problems Active Problems Problem Classification Problem Date Documented Date Episodic/Chronic Abdominal hernia (20 sources) Right inguinal hernia 01-01-2018 Episodic Abdominal pain (10 sources) Left lower quadrant pain; 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: [Left upper quadrant pain] 09-15-2019 Episodic Acquired foot deformities (20 sources) Hammer toe; 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: [Acquired hammer toe of left foot] 12-04-2017 Chronic Anal and rectal conditions (20 sources) Anal fissure; 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: [Anorectal disorder] Onset: 2 08-06-2022 Episodic Calculus of urinary tract (12 sources) Kidney stone; 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: [Calculus of kidney] Onset: 3 09-15-2019 Episodic Cancer of prostate (1 source) Malignant tumor of prostate; 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: [Malignant neoplasm of prostate] Chronic Cancer of rectum and anus (20 sources) Malignant tumor of rectum; 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: [Malignant neoplasm of rectum] Onset: 2 Chronic Cancer of rectum and anus (1 source) Personal history of other malignant neoplasm of rectum, rectosigmoid junction, and anus; 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: [Encounter for follow-up surveillance of rectal cancer] Onset: 4 Episodic Cardiac dysrhythmias (1 source) Ventricular premature complex; 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: [Ventricular premature depolarization] Onset: 3 Chronic Coagulation and hemorrhagic disorders (2 sources) Hypercoagulability state; 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 Conditions associated with dizziness or vertigo (4 sources) Dizziness and giddiness; 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: [Dizziness and giddiness] Onset: 2 Episodic Fluid and electrolyte disorders (1 source) Hypokalemia; 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: [Hypokalemia] 05-14-2023 Episodic Genitourinary symptoms and ill-defined conditions (5 sources) Nocturia 04-04-2019 Episodic Hemorrhoids (20 sources) External hemorrhoids; 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: [Internal hemorrhoids] 08-06-2022 Episodic Hyperplasia of prostate (20 sources) Benign prostatic hyperplasia without lower urinary tract symptoms; 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: [Benign prostatic hypertrophy with outflow obstruction] Onset: 1 09-15-2019 Chronic Lymphadenitis (5 sources) Lymphadenopathy; 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: [Enlarged lymph nodes, unspecified] Onset: 2 Episodic Osteoarthritis (13 sources) Arthritis; 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: [Idiopathic osteoarthritis] 05-08-2019 Chronic Other aftercare (3 sources) Long-term current use of drug therapy; 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: [Other retirement (current) drug therapy] Episodic Other aftercare (4 sources) History of malignant neoplasm of rectum; 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: [Encounter for follow-up examination after completed treatment for malignant neoplasm] 05-03-2023 Episodic Other aftercare (1 source) Encounter for follow-up examination after completed treatment for malignant neoplasm; 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: [Encounter for follow-up surveillance of rectal cancer] Onset: 4 Episodic Other bone disease and musculoskeletal deformities (5 sources) Avascular necrosis of bone; 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 Other circulatory disease (4 sources) Low blood pressure; 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: [Hypotension, unspecified] Onset: 2 Episodic Other connective tissue disease (1 source) Swelling of lower limb; 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: [Other specified soft tissue disorders] Episodic Other connective tissue disease (1 source) Spasm; 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: [Other muscle spasm] Onset: 3 Episodic Other connective tissue disease (2 sources) Arthrodesis status Episodic Other gastrointestinal disorders (9 sources) Rectal mass 08-20-2022 Episodic Other lower respiratory disease (2 sources) Multiple nodules of lung; 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: [Other nonspecific abnormal finding of lung field] Episodic Other male genital disorders (12 sources) Male erectile dysfunction, unspecified; 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: [Erectile dysfunction] Onset: 3 Chronic Other nervous system disorders (4 sources) Pain due to neoplastic disease; 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: [Neoplasm related pain (acute) (chronic)] Chronic Other nervous system disorders (1 source) Neuropathy; 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: [Polyneuropathy, unspecified] Chronic Other nervous system disorders (4 sources) Polyneuropathy, unspecified; 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: [Polyneuropathy, unspecified] Onset: 3 Chronic Other nervous system disorders (2 sources) Polyneuropathy; 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: [Polyneuropathy, unspecified] Chronic Other non-traumatic joint disorders (1 source) Swollen ankle region; 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: [Effusion, left ankle] Episodic Other non-traumatic joint disorders (5 sources) Hip pain; 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: [Pain in left hip] Episodic Other non-traumatic joint disorders (2 sources) Pain in left hip Episodic Other nutritional; endocrine; and metabolic disorders (1 source) Obesity, unspecified; 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: [OBESITY UNSPECIFIED] Onset: 1 Chronic Other nutritional; endocrine; and metabolic disorders (1 source) Body mass index (BMI) 31.0-31.9, adult; 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: [BODY MASS INDEX BMI 31.0-31.9 ADULT] Onset: 1 Chronic Other nutritional; endocrine; and metabolic disorders (20 sources) Body mass index 30+ - obesity 08-29-2020 Chronic Other nutritional; endocrine; and metabolic disorders (2 sources) Obese class I; 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: [Body mass index (BMI) 30.0-30.9, adult] Onset: 2 Chronic Other nutritional; endocrine; and metabolic disorders (2 sources) Body mass index (BMI) 29.0-29.9, adult Episodic Other screening for suspected conditions (not mental disorders or infectious disease) (3 sources) Imaging of lung abnormal ; 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: [Abnormal results of pulmonary function studies] Onset: 3 Episodic Shikha-; endo-; and myocarditis; cardiomyopathy (except that caused by tuberculosis or sexually transmitted disease) (20 sources) Cardiomyopathy; 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: [Other cardiomyopathies] Onset: 2 08-29-2020 Chronic Peripheral and visceral atherosclerosis (5 sources) Peripheral vascular disease; 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: [Peripheral vascular disease, unspecified] Chronic Phlebitis; thrombophlebitis and thromboembolism (8 sources) H/O: thrombosis; 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: [Acute deep vein thrombosis of lower limb] 08-29-2020 Episodic Pneumonia (except that caused by tuberculosis or sexually transmitted disease) (1 source) Pneumonia; 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: [Pneumonia, unspecified organism] Onset: 3 Episodic Residual codes; unclassified (5 sources) Anticoagulant control - finding 09-28-2021 Episodic Residual codes; unclassified (1 source) Patient encounter status; 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: [Other specified health status] Onset: 2 Episodic Residual codes; unclassified (1 source) Family history of malignant neoplasm of pancreas; 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: [Family history of malignant neoplasm of digestive organs] Episodic Residual codes; unclassified (1 source) Family history of malignant neoplasm of liver; 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: [Family history of malignant neoplasm of digestive organs] Episodic Rheumatoid arthritis and related disease (20 sources) Rheumatoid arthritis, unspecified; 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: [Rheumatoid arthritis] Onset: 1 08-29-2020 Chronic Screening and history of mental health and substance abuse codes (18 sources) Tobacco use and exposure - finding 05-31-2022 Chronic Screening and history of mental health and substance abuse codes (2 sources) Encounter for screening for depression Episodic Spondylosis; intervertebral disc disorders; other back problems (20 sources) Cervical disc disorder 07-07-2018 Chronic Spondylosis; intervertebral disc disorders; other back problems (20 sources) Spinal stenosis in cervical region; 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: [Sciatica] Onset: 3 07-07-2018 Episodic Unclassified (1 source) CONTACT W/AND (SUSP) EXPOS COVID-19; 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: [CONTACT W/AND (SUSP) EXPOS COVID-19] Onset: 1 Unclassified (2 sources) Consult; 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: [Consult] Onset: 2 Unclassified (6 sources) Patient encounter status 10-24-2022 Past or Other Problems Problem Classification Problem Date Documented Da te Episodic/Chronic Complication of device; implant or graft (5 sources) Pain due to internal orthopedic prosthetic devices, implants and grafts, initial encounter; 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: [PAIN INTRL ORTHO PROS DEV GFT INIT] Onset: 03-31-2021 Episodic Gastrointestinal hemorrhage (12 sources) Rectal hemorrhage; 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: [Hemorrhage of anus and rectum] Onset: 02-04-2023 08-19-2022 Episodic Other aftercare (1 source) [facility] (current) use of anticoagulants; 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: [TRANSPORTATION OFFICER CURRNT USE ANTICOAGULANTS] Onset: 04-05-2021 Episodic Other aftercare (1 source) Other retirement (current) drug therapy; 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: [OTH TRANSPORTATION OFFICER CURRENT DRUG THERAPY] Onset: 04-05-2021 Episodic Other connective tissue disease (1 source) Pain in right foot; 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: [PAIN IN RIGHT FOOT] Onset: 02-09-2021 Episodic Other connective tissue disease (1 source) Pain in left foot; 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: [PAIN IN LEFT FOOT] Onset: 02-09-2021 Episodic Other lower respiratory disease (1 source) Other nonspecific abnormal finding of lung field; 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: [Lung nodules] Onset: 12-10-2022 Episodic Other non-traumatic joint disorders (4 sources) Pain in right ankle and joints of right foot; 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: [PAIN IN RIGHT ANKLE] Onset: 02-02-2021 Episodic Pulmonary heart disease (20 sources) Infarction of lung due to embolus; 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: [Other pulmonary embolism without acute cor pulmonale] Onset: 08-04-2018 08-04-2018 Episodic Residual codes; unclassified (1 source) Family history of malignant neoplasm of digestive organs; 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: [Family history of pancreatic cancer] Onset: 03-13-2023 Episodic Residual codes; unclassified (1 source) Family history of malignant neoplasm of prostate; 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: [Family history of prostate cancer] Onset: 03-13-2023 Episodic Unclassified (1 source) Exposure to 2019 novel coronavirus; 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: [Contact with and (suspected) exposure to COVID19] Unclassified (2 sources) Lumbar back pain M54.50 Results Test Name Value Interpretation Reference Range Facility ANES POSTPROC EVALon 024 ANES POSTPROC EVAL HNO ID: [id number] Author: REX LIZAMA MD Service: Anesthesiology Author Type: Physician Type: Anesthesia Postprocedure Evaluation Filed: 11/05/2023 10:41 Note Text: POST ANESTHESIA EVALUATION NOTE : 1950 Procedure Summary Date: 11/05/23 Room / Location: Procedures Anesthesia Start: 09 Anesthesia Stop: 1011 Procedure: SIGMOIDOSCOPY Diagnosis: Encounter for follow-up surveillance of rectal cancer (High risk colon cancer surveillance: Personal history of rectal cancer) Scheduled Providers: Deborah Norman MD; Rex Lizama MD; Renee Taylor APRN.[employer] Responsible Provider: Rex Lizama MD Anesthesia Type: MAC ASA Status: 3 Anesthesia Type: MAC Last Vitals Vitals Value Taken Time BP 117/85 11/05/23 1030 Temp 36.4 ?C (97.6 ?F) 11/05/23 1016 HR SpO2 55 11/05/23 1039 Resp 12 11/05/23 1039 SpO2 96 % 11/05/23 1039 Vitals shown include unfiled device data. Post Anesthesia Patient Status Patient Evaluation: PACU. PACU/ICU Patient Condition: stable. Anticipated Disposition: phase 2 then home. Neurological Status: aware and responsive. Pulmonary Status: breathing comfortably on room air Airway Control: returned to baseline unsupported. Cardiovascular Status: stable. Pain Management: clinically adequate - multimodal analgesia pain management approach Postoperative Hydration: acceptable. Intraoperative Events: no significant anesthesia events Recommendation: continue current plan of care. Anesthesia Observations No Documentation SIGNATURE: Rex Lizama MD PATIENT NAME: Mervat Damon DATE: November 05, 2023 TIME: 10:40 AM CSN: [id number] [facility] ANES PRE-OPon 11-05-2023 ANES PRE-OP HNO ID: [id number] Author: REX LIZAMA MD Service: Anesthesiology Author Type: Physician Type: Anesthesia Preprocedure Evaluation Filed: 11/05/2023 09:31 Note Text: ANESTHESIOLOGY DAY OF SURGERY NOTE : 1950 Procedure Information Date/Time: 11/05/23929 Scheduled providers: Deborah Norman MD; Rex Lizama MD; Renee Taylor APRN.[employer] Procedure: SIGMOIDOSCOPY Location: Procedures Estimated body mass index is 30.67 kg/m? as calculated from the following: Height as of 08/27/23: 187.7 cm (6' 1.9 ). Weight as of 08/27/23: 108 kg (238 lb 3.2 oz). Most recent hematocrit and potassium results: Hematocrit 41.2 08/27/2023 Potassium 3.7 08/27/2023 Relevant Problems PULMONARY (+) Pulmonary embolus with infarction (HCC) Cardiovascular (+) Non-ischemic cardiomyopathy (HCC) Oncology (+) Rectal cancer (HCC) Other (+) RA (rheumatoid arthritis) (HCC) I - PHYSICAL EVALUATION AIRWAY Patient intubated: No. Tracheostomy tube not present Mallampati: III. TM distance: >3 FB. Neck ROM: full ROM without neurological symptoms. Mouth opening: adequate. Short neck: no. Thick neck: yes Microretrognathia/Micro nagthia/Recessed Chin: No DENTAL Normal dental observations. Dental findings: teeth intact and missing tooth/teeth. Dentures, upper: complete. Dentures, lower: partial. Additional exam findings: yes. CARDIOVASCULAR Rhythm: regular Rate: normal PULMONARY Breath sounds clear to auscultation. II - ANESTHESIA PLAN ASA Score: 3 Anesthetic Plan: MAC NPO Status: adequate Beta Taina Monitoring Plan Monitoring plan: Standard ASA. Post Procedure Analgesic Plan Postoperative analgesic plan: parenteral or oral opioids and multimodal analgesia. Informed Consent Anesthetic risks, benefits, alternatives, personnel and consent discussed: yes. Patient / Responsible [employer] Party agrees to proceed: yes Patient / Surrogate agrees to blood products: blood products not planned DNR status not reviewed with patient and/or family prior to surgery. Significant changes in the patient condition since the History and Physical, not otherwise documented in primary service progress note: no. Potential Anesthesia issues that may suggest increased risk of complications or contraindication to planned procedure: none. Vitals Value Taken Time BP 127/91 11/05/23 0920 Pulse Resp 16 11/05/23 0920 Temp 36.1 ?C (97 ?F) 11/05/23 0920 SpO2 98 % 11/05/23 0920 Outpatient Medications as of 11/05/2023 Medication Sig - calcium carbonate (CALCIUM 600 ORAL) Take 1 tablet by mouth once daily. - glucosamine/chondr perez A sod (GLUCOSAMINE-CHONDROITI N) 1,500-1,200 mg/30 mL liqd Take by mouth once daily. - predniSONE (DELTASONE) 5 mg tablet Take 5 mg by mouth once daily. - valsartan (DIOVAN) 80 mg tablet Take 80 mg by mouth once daily. - carvedilol (COREG) 6.25 mg tablet Take 6.25 mg by mouth twice daily with meals. - tamsulosin ER (FLOMAX) 0.4 mg cap Take 0.4 mg by mouth twice daily. - Ascorbic Acid 100 mg tablet Take 100 mg by mouth twice daily. - XARELTO 20 mg tablet TAKE ONE TABLET BY MOUTH DAILY WITH DINNER - cyclobenzaprine (FLEXERIL) 10 mg tablet Take 10 mg by mouth. - hydroCHLOROthiazide (HYDRODIURIL, ESIDRIX) 12.5 mg capsule Take 12.5 mg by mouth once daily. - acetaminophen 325 mg cap Take by mouth as needed. - folic acid 1 mg tablet Take 1 mg by mouth once daily. Facility-Administered Medications as of 11/05/2023 Medication Dose Route Frequency - lactated ringers iv infusion 30 mL/hr INTRAVENOUS CONTINUOUS I have interviewed and examined the patient. I have reviewed the medical record and/or the pre-anesthesia evaluation, pertinent labs, and test results. This contains updated information obtained within 48 hours of Surgery/Procedure. SIGNATURE: Rex Lizama MD PATIENT NAME: Mervat Damon DATE: November 05, 2023 TIME: 9:29 AM CSN: [id number] Normal [facility] Flexible Sigmoidoscopyon Flexible sigmoidoscopy [facility] Gastrointestinal Endoscopy Patient Name: Mervat Damon Procedure Date: 11/05/2023 9:46 AM Date of : 1950 Admit Type: Outpatient Age: 73 Room: [place] [address] Gender: Male Note Status: Finalized Attending MD: Deborah Norman MD, Procedure: Flexible Sigmoidoscopy Indications: High risk colon cancer surveillance: Personal history of rectal cancer Providers: Deborah Norman MD Patient Profile: This is a 73 year old male. Refer to note in patient chart for documentation of history and physical. Last Colonoscopy: within the past 6 months. Referring Physician: Deborah Norman MD (Referring MD) Medicines: Monitored Anesthesia Care Complications: No immediate complications. Requesting Provider: Procedure: Pre-Anesthesia Assessment: - Prior to the procedure, a History and Physical was performed, and patient medications and allergies were reviewed. The patient is competent. The risks and benefits of the procedure and the sedation options and risks were discussed with the patient. All questions were answered and informed consent was obtained. Patient identification and proposed procedure were verified by the physician and the nurse in the pre-procedure area in the endoscopy suite. Mental Status Examination: alert and oriented. Airway Examination: normal oropharyngeal airway and neck mobility. ASA Grade Assessment: III - A patient with severe systemic disease. After reviewing the risks and benefits, the patient was deemed in satisfactory condition to undergo the procedure. The anesthesia plan was to use monitored anesthesia care (MAC). Immediately prior to administration of medications, the patient was re-assessed for adequacy to receive sedatives. The heart rate, respiratory rate, oxygen saturations, blood pressure, adequacy of pulmonary ventilation, and response to care were monitored throughout the procedure. The physical status of the patient was re-assessed after the procedure. After obtaining informed consent, the scope was passed under direct vision. The Colonoscope was introduced through the anus and advanced to the sigmoid colon. The flexible sigmoidoscopy was accomplished without difficulty. The patient tolerated the procedure well. The quality of the bowel preparation was good. Moderate Sedation: MAC anesthesia was administered by the anesthesia team. Total Procedure Duration: 0 hours 12 minutes 48 seconds Findings: Skin tags were found on perianal exam. A 3 mm polyp was found in the rectum. The polyp was sessile. The polyp was removed with a jumbo cold forceps. Resection and retrieval were complete. A scar was found in the distal rectum. The scar tissue was healthy in appearance. Anal polyp at anal verge removed The exam was otherwise without abnormality. Impression: - Perianal skin tags found on perianal exam. - One 3 mm polyp in the rectum, removed with a jumbo cold forceps. Resected and retrieved. - Scar in the distal rectum. - The examination was otherwise normal. Recommendation: - Continue present medications. - Discharge patient to home. - Resume previous diet. - Repeat flexible sigmoidoscopy in 4 months for surveillance. Procedure Code(s): --- Professional --- 04765, Sigmoidoscopy, flexible; with biopsy, single or multiple CPT copyright 2020 [employer]. All rights reserved. The codes documented in this report are preliminary and upon surgical coder review may be revised to meet current compliance requirements. Attending Participation: I was present and participated during the entire procedure, including non-tripp portions. Scope In: 9:59:03 AM Scope Out: 10:11:51 AM MD Deborah Harper MD 11/05/2023 10:16:11 AM This report has been signed electronically by Deborah Norman MD Number of Addenda: 0 Note Initiated On: 11/05/2023 9:46 AM Estimated Blood Loss: Estimated blood loss was minimal. Normal [facility] HISTORY PHYSICALon HISTORY PHYSICAL HNO ID: [id number] Author: DEBORAH NORMAN MD Service: Colorectal Author Type: Resident Type: H&P Filed: 11/05/2023 09:55 Note Text: Attestation signed by Deborah Norman MD at 11/05/2023 9:55 AM Attending Note I evaluated the patient and personally participated in the tripp components. I agree with the resident's findings and plan as documented and have discussed the case and management of the patient's care with the resident. Signature: Deborah Norman MD Date: 11/05/2023 Time: 9:55 AM ENDOSCOPY HISTORY AND PHYSICAL EXAM Mervat Damon [id number] Subjective HPI: Mervat Damon is a 72 year old male with T3N0 rectal cancer s/p chemoradiation Last sigmoidoscopy 06/2023 Impression: - Preparation of the colon was fair. - Scar in the distal rectum. - The examination was otherwise normal. - No specimens collected. PAST ANESTHESIA HISTORY: No history of adverse event PAST MEDICAL HISTORY Diagnosis Date Acute low back pain with possible spinal stenosis of less than six weeks' duration Adenocarcinoma of rectum (HCC) Arthritis Bilateral renal cysts peripelvic BPH with urinary obstruction Cholelithiasis History of kidney stones Non-ischemic cardiomyopathy (HCC) Pulmonary emboli (HCC) 2019 left lower lobe RA (rheumatoid arthritis) (HCC) PAST SURGICAL HISTORY Procedure Laterality Date COLONOSCOPY HAMMERTOE REVISION, ONE TOE HEMORRHOID SURGERY HX HERNIA REPAIR HX LITHOTRIPSY PROC UNILATERAL REMV CATARACT EXTRACAP,INSERT LENS Prior to Admission medications as of 11/05/23 0917 Medication Sig Last Dose Taking calcium carbonate (CALCIUM 600 ORAL) Take 1 tablet by mouth once daily. 11/04/2023 Yes glucosamine/chondr perez A sod (GLUCOSAMINE-CHONDROITI N) 1,500-1,200 mg/30 mL liqd Take by mouth once daily. 11/04/2023 Yes predniSONE (DELTASONE) 5 mg tablet Take 5 mg by mouth once daily. 11/04/2023 Yes valsartan (DIOVAN) 80 mg tablet Take 80 mg by mouth once daily. 11/04/2023 Yes carvedilol (COREG) 6.25 mg tablet Take 6.25 mg by mouth twice daily with meals. 11/04/2023 Yes tamsulosin ER (FLOMAX) 0.4 mg cap Take 0.4 mg by mouth twice daily. 11/04/2023 Yes Ascorbic Acid 100 mg tablet Take 100 mg by mouth twice daily. 11/04/2023 Yes XARELTO 20 mg tablet TAKE ONE TABLET BY MOUTH DAILY WITH DINNER 11/03/2023 cyclobenzaprine (FLEXERIL) 10 mg tablet Take 10 mg by mouth. hydroCHLOROthiazide (HYDRODIURIL, ESIDRIX) 12.5 mg capsule Take 12.5 mg by mouth once daily. acetaminophen 325 mg cap Take by mouth as needed. folic acid 1 mg tablet Take 1 mg by mouth once daily. ALLERGIES No Known Allergies Objective PHYSICAL EXAM: The remainder of the physical exam is noncontributory. AIRWAY: Airway Visualization of Uvula: Yes Mouth opening greater than 2 fingerbreadths: Yes Neck Full Range of Motion: Yes LUNGS: Lungs clear to auscultation CARDIAC: Regular rhythm,Regular rate Assessment/Plan ASA Class: Active Problems: * No active hospital problems. * Resolved Problems: * No resolved hospital problems. * Medication and Non-Pharmacologic VTE Prophylaxis/Anticoagula nts VTE Prophylaxis: not indicated for procedure Provisional Diagnosis/Treatment Plan: Sigmoidoscopy under MAC sedation Consent has been signed SEDATION GOAL: Anesthesia Prabhu Jacobs MD 11/05/2023 9:44 AM [facility] SURGICAL PATHOLOGYon 024 CASE REPORT [facility] Comment on above: Order Comment: Speci men Type: TISSUE SPECIMENOrdering Facility: [facility] Address: [facility] [place] [address] Result Comment: Surg [facility] Pathology Report Case: [id number] Authorizing Provider: Deborah Norman MD Collected: 11/05/2023 10:06 AM Ordering Location: Procedures Received: 11/05/2023 10:33 AM Pathologist: Vinicius Beebe MD Specimens: A) - RECTAL POLYP B) - ANAL CANAL BIOPSY, Anal polyp Performed By: #### S ####[facility] [id number] [address] FINAL DIAGNOSIS Normal [facility] ital Comment on above: Order Comment: Speci men Type: TISSUE SPECIMENOrdering Facility: [facility] Address: [address] [place] [address] Result Comment: A. R ectum, polypectomy: - Colonic mucosa with mild architectural distortion. B. Anal canal, polypectomy: - Polypoid squamous mucosa. Performed By: #### S ####[facility] [id number] [address] FINAL PERFORMING LAB Normal [facility] Comment on above: Order Comment: Speci men Type: TISSUE SPECIMENOrdering Facility: [facility] Address: [address] [place] [address] Result Comment: Diag nostic interpretation performed at [facility] [place], [facility] [place] [address] CLIA# [id number] Sand Temperer: Pineda Conti M.D. Performed By: #### S ####[facility] [id number] [address] GROSS DESCRIPTION A. RECTAL POLYP [facility] Comment on above: Order Comment: Speci men Type: TISSUE SPECIMENOrdering Facility: [facility] Address: [address] [place] [address] Result Comment: Rece ived in formalin are two pieces of santos, soft tissue aggregating to 0.4 x 0.2 x 0.2 cm. Totally submitted in one cassette. B. ANAL CANAL BIOPSY Received in formalin is a segment of santos-pink polypoid tissue measuring 0.6 x 0.4 x 0.5 cm. No stalk is noted. The line of resection is noted. The specimen is bisected and totally submitted in one cassette. Gross examination performed at [facility] [place], [address] [place] [address] 11/05/2023 4:24 PM Performed By: #### S ####[facility] [id number] [facility] [id number] [id number] [place] Consent for Procedure/Surger yon 10-24-2023 Consent for Procedure/Surgery [id number]#1.00T IFF Normal [facility] Consent for Procedure/Surgery [id number]#1.00T IFF Normal [facility] IntraOperative Documentson 0 10-24-2023 IntraOperative Documents [id number]#1.00T IFF Normal [facility] CNPNon 10-22-2023 CNPN Normal [facility] Office/Clinic Note-Physician on 10-10-2023 Office/Clinic Note-Physician [id number]#1.00 TIFF [facility] Consent for Treatmenton 09-21 Consent for Treatment [id number]#1.00 TIFF [facility] Consultation Noteon 10-09-20 Consultation Note Patient: MERVAT DAMON Age: 73 years Sex: Male : 1950 Associated Diagnoses: None Author: Cyndee Torres PA-C Subjective Chief complaint 10/09/2023 12:56 EST Low back pain . Patient is a 73-year-old male. He presents today after a 5-month hiatus. He has lower back pain with bilateral leg pain and fatigue. This was down to his knees. He rates an 8/10. It is worse the more he tries to do. Anti-inflammatory medications are not able to be used due to Xarelto. Previous physical therapy did not help. He is here today after undergoing the therapy and getting the MRI. He states that he saw Dr. Marcum. Dr. Marcum discussed surgery but wanted him to trial all conservative treatments first. He is here today to try an injection first and foremost. Health Status Allergies: Allergic Reactions (Selected) No Known Allergies, Allergies (1) Active Reaction No Known Allergies None Documented Current medications: (Selected) Prescriptions Prescribed Cialis 20 mg Tab: See Instructions, PRN for erectile dysfunction, 1 tab(s) Oral 30-60 mins prior to intercourse. do not exceed 1 tab/24 hrs., # 15 tab(s), Refills(s) 6, Pharmacy: [facility] #[id number], 188, cm, 10/24/22 10:33:00 EST, Height/Length Dosing, 112, kg, 10/24/22 1... Flomax 0.4 mg Cap: 0.4 mg = 1 cap(s), Oral, BID, # 180 cap(s), Refills(s) 3, Pharmacy: [facility], 188, cm, 05/07/23 13:45:00 EDT, Height/Length Dosing, 109, kg, 05/07/23 13:45:00 EDT, Weight Dosing carvedilol 6.25 mg Tab: 6.25 mg = 1 tab(s), Oral, BID, # 180 tab(s), Refills(s) 3, Pharmacy: [facility] #[id number], 188, cm, 04/29/23 8:41:00 EDT, Height/Length Dosing, 106.8, kg, 04/29/23 8:41:00 EDT, Weight Dosing cyclobenzaprine 10 mg Tab: 10 mg = 1 tab(s), Oral, TID, PRN for spasm, # 20 tab(s), Refills(s) 0, Pharmacy: [facility] #[id number], 188, cm, 03/18/23 10:50:00 EDT, Height/Length Dosing, 111, kg, 03/18/23 10:50:00 EDT, Weight Dosing finasteride 5 mg Tab: 5 mg = 1 tab(s), Oral, Daily, X 90 day(s), # 90 tab(s), Refills(s) 3, [facility], 188, cm, 10/24/22 10:33:00 EST, Height/Length Dosing, 112, kg, 10/24/22 10:33:00 EST, Weight Dosing hydrochlorothiazide 12.5 mg Cap: 12.5 mg = 1 cap(s), Oral, Daily, # 90 cap(s), Refills(s) 3, Pharmacy: [facility] #[id number], 188, cm, 04/29/23 8:41:00 EDT, Height/Length Dosing, 106.8, kg, 04/29/23 8:41:00 EDT, Weight Dosing valsartan 80 mg Tab: 80 mg = 1 tab(s), Oral, Daily, # 90 tab(s), Refills(s) 3, Pharmacy: [facility] #[id number], 188, cm, 04/29/23 8:41:00 EDT, Height/Length Dosing, 106.8, kg, 04/29/23 8:41:00 EDT, Weight Dosing Documented Medications Documented Glucosamine Chondroitin: 1500mg/1200mg, Oral, Daily, Refill(s) 0, Prophylaxis Vitamin C: 1,000 mg, Oral, Daily, Refills(s) 0, Prophylaxis Xarelto 15 mg oral tablet: 15 mg = 1 tab(s), Oral, Refills(s) 0 azithromycin 250 mg Tab: Refills(s) 0 gabapentin 100 mg Cap: 100 mg = 1 cap(s), Refills(s) 0 methylPREDNISolone 4 mg tab dosepak: = 1 packet(s), Oral, Once, as directed on package labeling, X 6 day(s), # 21 tab(s), Refills(s) 0 prochlorperazine 10 mg Tab: Refills(s) 0 Problem list: All Problems Hammertoe / SNOMED CT 017324492 / Confirmed Inguinal hernia, right / SNOMED CT 908988790 / Confirmed Bulging of cervical intervertebral disc / SNOMED CT 8521527987 / Confirmed RA - Rheumatoid arthritis / SNOMED CT 5281525330 / Confirmed Cervical spinal stenosis / SNOMED CT 298384903 / Confirmed BPH with urinary obstruction / SNOMED CT 0050795570 / Confirmed Non-ischemic cardiomyopathy / SNOMED CT 822678502 / Confirmed BMI 31.0-31.9,adult / SNOMED CT 422175653 / Confirmed Tobacco non-user / SNOMED CT 545145827 / Confirmed Erectile dysfunction / SNOMED CT 4276010586 / Confirmed Rectal cancer / SNOMED CT 414861290 / Confirmed Neck pain without injury / SNOMED CT 347839154 / Confirmed Canceled: Arthritis, rheumatoid / SNOMED CT 631244614 Canceled: Kidney stones / SNOMED CT 493BA757-C830-0491-B2U0 -[id number] Canceled: Acute pulmonary embolism / SNOMED CT 1214580585 Canceled: Frequent episodes of bronchitis and pneumonia / SNOMED CT 484457303 Canceled: Nocturia / SNOMED CT 230307160 Canceled: Arthritis / SNOMED CT 9122870 Canceled: Left lower quadrant abdominal pain / SNOMED CT 947408286 Canceled: Shingles rash / SNOMED CT 4728677 Canceled: Hip pain, left / SNOMED CT 77536436 Canceled: Pneumonia / SNOMED CT 548444899 Canceled: History of blood clots / SNOMED CT 280055415 Canceled: Weak urine stream / SNOMED CT 459931997 Canceled: Rotator cuff syndrome of right shoulder / SNOMED CT 5668209 Canceled: Impingement syndrome of right shoulder region / SNOMED CT 092164304 Canceled: Left wrist pain / SNOMED CT 22311405 Canceled: Right ankle pain / SNOMED CT 476557207 Canceled: BMI 31.0-31.9,adult / SNOMED CT 970022593 Canceled: Rash and other nonspecific skin eruption / SNOMED CT 735472639 Canceled: Lower respiratory tract infection / SNOMED C (more content not included)... Normal [facility] Comment on above: Result Comment: Elec tronically Signed By: Cyndee Torres PA-C\.br\Date and Time Signed: 10/09/23 13:28 EST\.br\Electronically Co-Signed By: Reese Reid DO\.br\Date and Time Co-Signed: 10/10/23 08:26 EST Office/Clinic Note-Nurseon 1 12-10-2022 Office/Clinic Note-Nurse [id number]#1.00 TIFF Normal [facility] Office/Clinic Note-Physician on 10-09-2023 Office/Clinic Note-Physician [id number]#1.00 TIFF Normal [facility] Patient Correspondenceon Patient Correspondence [id number]#1.00 TIFF Normal [facility] Patient Correspondence [id number]#1.00 TIFF Normal [facility] Patient History Officeon Patient History Office [id number]#1.00 TIFF Normal [facility] Radiology Outside Office Custodial Worker yon 10-07-2023 Radiology Outside Office Copy [id number]#1.00 TIFF Normal [facility] CEA SerPl-mCncon 09-05-2023 Carcinoembryonic Ag [Mass/Vol] 1.8 ng/mL Normal <=2.9 [facility] Comment on above: Order Comment: Speci men Type: BLOOD SPECIMENOrdering Facility: [facility] Address: [address] [place] [address] Result Comment: Carc inoembryonic antigen test is used as an aid in monitoring response to treatment or recurrence in patients with established colorectal, breast, lung, prostatic, pancreatic, and ovarian carcinomas. Clinical correlation is required.The Carcinoembryonic antigen test was performed using the Korina Urmila Unicel DXI paramagnetic particle chemiluminescent immunoassay method. Results obtained with different assay methods or kits cannot be used interchangeably. Performed By: #### 2 039-6 ####[facility] [id number] [facility] [id number] [place] [address] [place] CBC W Auto Differential pane l (Bld)on 08-27-2023 Basophils (Bld) [#/Vol] 0.06 10*3/uL Normal <0.11 [facility] Comment on above: Order Comment: Speci men Type: BLOOD SPECIMENOrdering Facility: [facility] Address: [address] [place] [address] Performed By: #### 5 7021-8 ####[facility] LABCLIA [id number] [place] [address] Basophils/100 WBC (Bld) 0.9 % Normal [facility] Comment on above: Order Comment: Speci men Type: BLOOD SPECIMENOrdering Facility: [facility] Address: [address] [place] [address] Performed By: #### 5 7021-8 ####[facility] LABCLIA [id number] [place] [address] Differential cell count method Nom (Bld) Auto Normal [facility] Comment on above: Order Comment: Speci men Type: BLOOD SPECIMENOrdering Facility: [facility] Address: [address] [place] [address] Performed By: #### 5 7021-8 ####[facility] LABCLIA [id number] [place] [address] Eosinophils (Bld) [#/Vol] 0.22 10*3/uL Normal <0.46 [facility] Comment on above: Order Comment: Speci men Type: BLOOD SPECIMENOrdering Facility: [facility] Address: [address] [place] [address] Performed By: #### 5 7021-8 ####[facility] LABCLIA [id number] [place] [address] Eosinophils/100 WBC (Bld) 3.2 % Normal [facility] Comment on above: Order Comment: Speci men Type: BLOOD SPECIMENOrdering Facility: [facility] Address: [address] [place] [address] Performed By: #### 5 7021-8 ####[facility] LABCLIA [id number] [place] [address] Erythrocyte distribution width (RBC) [Ratio] 15.5 % High 11.5-15.0 [facility] Comment on above: Order Comment: Speci men Type: BLOOD SPECIMENOrdering Facility: [facility] Address: [address] [place] [address] Performed By: #### 5 7021-8 ####[facility] LABCLIA [id number] [place] [address] Hematocrit (Bld) [Volume fraction] 41.2 % Normal 39.0-51.0 [facility] Comment on above: Order Comment: Speci men Type: BLOOD SPECIMENOrdering Facility: [facility] Address: [address] [place] [address] Performed By: #### 5 7021-8 ####[facility] LABCLIA [id number] [place] [address] Hemoglobin (Bld) [Mass/Vol] 13.4 g/dL Normal 13.0-17.0 [facility] Comment on above: Order Comment: Speci men Type: BLOOD SPECIMENOrdering Facility: [facility] Address: [address] [place] [address] Performed By: #### 5 7021-8 ####[facility] LABCLIA [id number] [place] [address] Immature granulocytes (Bld) [#/Vol] 10*3/uL Normal <0.10 [facility] Comment on above: Order Comment: Speci men Type: BLOOD SPECIMENOrdering Facility: [facility] Address: [address] [place] [address] Performed By: #### 5 7021-8 ####[facility] LABCLIA [id number] [place] [address] Immature granulocytes/100 WBC (Bld) 0.3 % Normal [facility] Comment on above: Order Comment: Speci men Type: BLOOD SPECIMENOrdering Facility: [facility] Address: [address] [place] [address] Performed By: #### 5 7021-8 ####[facility] LABCLIA [id number] [place] [address] Lymphocytes (Bld) [#/Vol] 0.85 10*3/uL Low 1.00-4.00 [facility] Comment on above: Order Comment: Speci men Type: BLOOD SPECIMENOrdering Facility: [facility] Address: [address] [place] [address] Performed By: #### 5 7021-8 ####[facility] LABCLIA [id number] [place] [address] Lymphocytes/100 WBC (Bld) 12.4 % Normal [facility] Comment on above: Order Comment: Speci men Type: BLOOD SPECIMENOrdering Facility: [facility] Address: [address] [place] [address] Performed By: #### 5 7021-8 ####[facility] LABCLIA [id number] [place] [address] MCH (RBC) [Entitic mass] 31.1 pg Normal 26.0-34.0 [facility] Comment on above: Order Comment: Speci men Type: BLOOD SPECIMENOrdering Facility: [facility] Address: [address] [place] [address] Performed By: #### 5 7021-8 ####[facility] LABCLIA [id number] [place] [address] MCHC (RBC) [Mass/Vol] 32.5 g/dL Normal 30.5-36.0 [facility] Comment on above: Order Comment: Speci men Type: BLOOD SPECIMENOrdering Facility: [facility] Address: [address] [place] [address] Performed By: #### 5 7021-8 ####[facility] LABCLIA [id number] [place] [address] MCV (RBC) [Entitic vol] 95.6 fL Normal 80.0-100.0 [facility] Comment on above: Order Comment: Speci men Type: BLOOD SPECIMENOrdering Facility: [facility] Address: [address] [place] [address] Performed By: #### 5 7021-8 ####[facility] LABCLIA [id number] [place] [address] Monocytes (Bld) [#/Vol] 0.60 10*3/uL Normal <0.87 [facility] Comment on above: Order Comment: Speci men Type: BLOOD SPECIMENOrdering Facility: [facility] Address: [address] [place] [address] Performed By: #### 5 7021-8 ####[facility] LABCLIA [id number] [place] [address] Monocytes/100 WBC (Bld) 8.8 % Normal [facility] Comment on above: Order Comment: Speci men Type: BLOOD SPECIMENOrdering Facility: [facility] Address: [address] [place] [address] Performed By: #### 5 7021-8 ####[facility] LABCLIA [id number] [place] [address] Neutrophils (Bld) [#/Vol] 5.10 10*3/uL Normal 1.45-7.50 [facility] Comment on above: Order Comment: Speci men Type: BLOOD SPECIMENOrdering Facility: [facility] Address: [address] [place] [address] Performed By: #### 5 7021-8 ####[facility] LABCLIA [id number] [place] [address] Neutrophils/100 WBC (Bld) 74.4 % Normal [facility] Comment on above: Order Comment: Speci men Type: BLOOD SPECIMENOrdering Facility: [facility] Address: [address] [place] [address] Performed By: #### 5 7021-8 ####[facility] LABIA [id number] [place] [address] Nucleated RBC (Bld) [#/Vol] 10*3/uL Normal <0.01 [facility] Comment on above: Order Comment: Speci men Type: BLOOD SPECIMENOrdering Facility: [facility] Address: [address] [place] [address] Performed By: #### 5 7021-8 ####[facility] LABCLIA [id number] [place] [address] Nucleated RBC/100 WBC (Bld) [Ratio] 0.0 /100 WBC Normal [facility] Comment on above: Order Comment: Speci men Type: BLOOD SPECIMENOrdering Facility: [facility] Address: [address] [place] [address] Performed By: #### 5 7021-8 ####[facility] LABCLIA [id number] [place] [address] Platelet mean volume (Bld) [Entitic vol] 10.0 fL Normal 9.0-12.7 [facility] Comment on above: Order Comment: Speci men Type: BLOOD SPECIMENOrdering Facility: [facility] Address: [address] [place] [address] Performed By: #### 5 7021-8 ####[facility] LABCLIA [id number] [place] [address] Platelets (Bld) [#/Vol] 188 10*3/uL Normal 150-400 [facility] Comment on above: Order Comment: Speci men Type: BLOOD SPECIMENOrdering Facility: [facility] Address: [address] [place] [address] Performed By: #### 5 7021-8 ####[facility] LABCLIA [id number] [place] [address] RBC (Bld) [#/Vol] 4.31 10*6/uL Normal 4.20-6.00 [facility] Comment on above: Order Comment: Speci men Type: BLOOD SPECIMENOrdering Facility: [facility] Address: [address] [place] [address] Performed By: #### 5 7021-8 ####[facility] LABCLIA [id number] [place] [address] WBC (Bld) [#/Vol] 6.85 10*3/uL Normal 3.70-11.00 [facility] Comment on above: Order Comment: Speci men Type: BLOOD SPECIMENOrdering Facility: [facility] Address: [place] [address] Performed By: #### 5 7021-8 ####[facility] LABCLIA [id number] [place] [address] CEA SerPl-mCncon 08-27-2023 Carcinoembryonic Ag [Mass/Vol] 1.7 ng/mL Normal <=2.9 [facility] Comment on above: Order Comment: Speci men Type: BLOOD SPECIMENOrdering Facility: [facility] Address: [place] [address] Result Comment: Carc inoembryonic antigen test is used as an aid in monitoring response to treatment or recurrence in patients with established colorectal, breast, lung, prostatic, pancreatic, and ovarian carcinomas. Clinical correlation is required.The Carcinoembryonic antigen test was performed using the [employer] Un[employer]el DXI paramagnetic particle chemiluminescent immunoassay method. Results obtained with different assay methods or kits cannot be used interchangeably. Performed By: #### 2 039-6 ####[facility] LABCLIA [id number] [place] [address] [place] CNOVSPon 08-27-2023 CNOVSP Normal [facility] CNPNon 08-27-2023 CNPN Normal [facility] Comprehensive metabolic 2000 panelon 08-27-2023 Albumin [Mass/Vol] 4.2 g/dL Normal 3.9-4.9 [facility] Comment on above: Order Comment: Speci men Type: BLOOD SPECIMENOrdering Facility: [facility] Address: [place] [address] Performed By: #### 2 4323-8 ####[facility] LABCLIA [id number] [place] [address] ALP [Catalytic activity/Vol] 95 U/L Normal 38-113 [facility] Comment on above: Order Comment: Speci men Type: BLOOD SPECIMENOrdering Facility: [facility] Address: [address] [place] [address] Performed By: #### 2 4323-8 ####[facility] LABCLIA [id number] [place] [address] ALT [Catalytic activity/Vol] 7 U/L Low 10-54 [facility] Comment on above: Order Comment: Speci men Type: BLOOD SPECIMENOrdering Facility: [facility] Address: [address] [place] [address] Performed By: #### 2 4323-8 ####[facility] LABCLIA [id number] [place] [address] Anion gap [Moles/Vol] 9 mmol/L Normal 9-18 [facility] Comment on above: Order Comment: Speci men Type: BLOOD SPECIMENOrdering Facility: [facility] Address: [address] [place] [address] Performed By: #### 2 4323-8 ####[facility] LABCLIA [id number] [place] [address] AST [Catalytic activity/Vol] 13 U/L Low 14-40 [facility] Comment on above: Order Comment: Speci men Type: BLOOD SPECIMENOrdering Facility: [facility] Address: [address] [place] [address] Performed By: #### 2 4323-8 ####[facility] LABCLIA [id number] [place] [address] Bilirubin [Mass/Vol] 0.4 mg/dL Normal 0.2-1.3 [facility] Comment on above: Order Comment: Speci men Type: BLOOD SPECIMENOrdering Facility: [facility] Address: [address] [place] [address] Performed By: #### 2 4323-8 ####[facility] LABCLIA [id number] [place] [address] Calcium [Mass/Vol] 8.8 mg/dL Normal 8.5-10.2 [facility] Comment on above: Order Comment: Speci men Type: BLOOD SPECIMENOrdering Facility: [facility] Address: [address] [place] [address] Performed By: #### 2 4323-8 ####[facility] LABCLIA [id number] [place] [address] Chloride [Moles/Vol] 104 mmol/L Normal 97-105 [facility] Comment on above: Order Comment: Speci men Type: BLOOD SPECIMENOrdering Facility: [facility] Address: [address] [place] [address] Performed By: #### 2 4323-8 ####[facility] LABCLIA [id number] [place] [address] CO2 [Moles/Vol] 27 mmol/L Normal 22-30 [facility] Comment on above: Order Comment: Speci men Type: BLOOD SPECIMENOrdering Facility: [facility] Address: [address] [place] [address] Performed By: #### 2 4323-8 ####[facility] LABCLIA [id number] [place] [address] Creatinine [Mass/Vol] 1.21 mg/dL Normal 0.73-1.22 [facility] Comment on above: Order Comment: Speci men Type: BLOOD SPECIMENOrdering Facility: [facility] Address: [address] [place] [address] Performed By: #### 2 4323-8 ####[facility] LABCLIA [id number] [place] [address] Creatinine and Glomerular filtration rate.predicted panel (S/P/Bld) 64 mL/min/1.73m??? Normal >=60 [facility] Comment on above: Order Comment: Speci men Type: BLOOD SPECIMENOrdering Facility: [facility] Address: [address] [place] [address] Result Comment: Rebekah mated Glomerular Filtration Rate (eGFR) is calculated using the 2020 CKD-EPI creatinine equation. This equation utilizes serum creatinine, sex, and age as parameters. The creatinine assay has traceable calibration to isotope dilution-mass spectrometry. Refer to KDIGO guidelines for clinical interpretation. In patients with unstable renal function, e.g. those with acute kidney injury, the eGFR may not accurately reflect actual GFR. Performed By: #### 2 4323-8 ####[facility] LABCLIA [id number] [place] [address] Glucose [Mass/Vol] 91 mg/dL Normal 74-99 [facility] Comment on above: Order Comment: Speci men Type: BLOOD SPECIMENOrdering Facility: [facility] Address: [address] [place], [place] [address] Result Comment: The [place] Diabetes [employer] (ADA) provides guidance for cutoff values for fasting glucose and random glucose. The ADA defines fasting as no caloric intake for at least 8 hours. Fasting plasma glucose results between 100 to 125 mg/dL indicate increased risk for diabetes (prediabetes).Fasting plasma glucose results greater than or equal to 126 mg/dL meet the criteria for diagnosis of diabetes. In the absence of unequivocal hyperglycemia, results should be confirmed by repeat testing. In a patient with classic symptoms of hyperglycemia or hyperglycemic crisis, random plasma glucose results greater than or equal to 200 mg/dL meet the criteria for diagnosis of diabetes.Reference: Standards of Medical Care in Diabetes 2016, [place] [employer]. Diabetes Care. 2016.39(Suppl 1). Performed By: #### 2 4323-8 ####[facility] LABCLIA [id number] [place] [address] Potassium [Moles/Vol] 3.7 mmol/L Normal 3.7-5.1 [facility] Comment on above: Order Comment: Speci men Type: BLOOD SPECIMENOrdering Facility: [facility] Address: [address] [place] [address] Performed By: #### 2 4323-8 ####[facility] LABCLIA [id number] [place] [address] Protein [Mass/Vol] 6.2 g/dL Low 6.3-8.0 [facility] Comment on above: Order Comment: Speci men Type: BLOOD SPECIMENOrdering Facility: [facility] Address: [address] [place] [address] Performed By: #### 2 4323-8 ####[facility] LABCLIA [id number] [place] [address] Sodium [Moles/Vol] 140 mmol/L Normal 136-144 [facility] Comment on above: Order Comment: Speci men Type: BLOOD SPECIMENOrdering Facility: [facility] Address: [address] [place] [address] Performed By: #### 2 4323-8 ####[facility] LABCLIA [id number] [place] [address] Urea nitrogen [Mass/Vol] 22 mg/dL Normal 9-24 [facility] Comment on above: Order Comment: Speci men Type: BLOOD SPECIMENOrdering Facility: [facility] Address: [address] [place] [address] Performed By: #### 2 4323-8 ####[facility] LABCLIA [id number] [place] [address] IntraOperative Documentson 1 10-27-2022 IntraOperative Documents [id number]#1.00T IFF Normal [facility] Consent for Treatmenton Consent for Treatment [id number]#1.00T IFF Normal [facility] MR lumbar spine wo conon MR lumbar spine wo [facility] Main [place] [id number] MRI Report Signed Patient: Mervat Damon MR#: [id number] : 1950 Acct:[id number] Age/Sex: 72 / M ADM Date: 08/14/23 [facility] Dr: Valencia GONZALEZC Copies to: JM Godoy Ordering Provider: JM Godoy Date of Service: 08/14/23 MR/MR lumbar spine wo con: Polyneuropathy MRI lumbar spine without IV contrast. Reason for exam: Back pain. History of colorectal cancer.. No known injury. COMPARISON: Lumbar spine series 05/17/2023. Ex TECHNIQUE: Multisequence, multiplanar imaging of the lumbar spine was obtained without the use of IV contrast. FINDINGS: Vertebral body heights appear maintained. No bone marrow edema is seen. Presumed postradiation bone marrow changes are seen involving the L5 vertebral body and visualized sacrum. Spinal cord terminates in normal position without abnormal cord signal. No paraspinal mass. Visualized retroperitoneum demonstrates presumed bilateral parapelvic cysts. L1-L2: Diffuse broad-based disc bulge is present with central protrusion type disc herniation noted. There is ligamentum flavum hypertrophy and facet joint degenerative changes. Findings are causing moderate canal and severe left-sided neural foraminal stenosis. Mild right-sided neural foraminal stenosis. L2-L3: 5 mm retrolisthesis is noted. Broad-based disc bulge is present with ligamentum flavum hypertrophy and facet joint degenerative changes. Findings are causing moderate canal and severe bilateral neural foraminal narrowing. L3-L4: 3 mm retrolisthesis. Diffuse broad-based disc bulge is present with ligamentum flavum hypertrophy and facet joint degenerative changes causing mild canal and severe bilateral neural foraminal stenosis. L4-L5: 6 mm of anterolisthesis. Diffuse broad-based disc bulge is present with ligamentum flavum hypertrophy and facet joint degenerative changes causing severe canal and right-sided neural foraminal stenosis. Moderate left-sided neural foraminal stenosis. L5-S1: No posterior disc pathology is noted. Facet joint degenerative changes. No significant canal stenosis. Severe bilateral foraminal stenosis. MR/MR lumbar spine wo con Impression: Multilevel degenerative disc disease as described above. Impression dictated by: Hang Houser Jr., D.O.08/14/2023 2:30 PM Dictation Location: [place] [address] Transcribed By: [facility] 08/14/23 1430 Dictated By: Hang Houser Jr, DO 08/14/23 1426 Signed By: 08/14/23 1430 [facility] MR lumbar spine wo con [facility] [employer] Other MR lumbar spine wo con [facility] Main [place] [employer] Other MR lumbar spine wo con [address] [facility] [employer] Other MR lumbar spine wo con [place] [address] [employer] Other MR lumbar spine wo con MRI Report [employer] Other MR lumbar spine wo con Signed [employer] Other MR lumbar spine wo con Patient: Mervat Damon MR#: [id number] [employer] Other MR lumbar spine wo con 4313 [employer] Other MR lumbar spine wo con : 1950 Acct:[id number] [employer] Other MR lumbar spine wo con Age/Sex: 72 / M ADM Date: 08/14/23 [employer] Other MR lumbar spine wo con Loc: [facility] Room: Type: [facility] [employer] Other MR lumbar spine wo con Attending Dr: Valencia GONZALEZC [employer] Other MR lumbar spine wo con Copies to: JM Godoy [employer] Other MR lumbar spine wo con Ordering Provider: JM Godoy [employer] Other MR lumbar spine wo con Date of Service: 08/14/23 [employer] Other MR lumbar spine wo con MR/MR lumbar spine wo con: Polyneuropathy [employer] Other MR lumbar spine wo con MRI lumbar spine without IV contrast. [employer] Other MR lumbar spine wo con Reason for exam: Back pain. History of colorectal cancer.. No known injury. [employer] Other MR lumbar spine wo con COMPARISON: Lumbar spine series 05/17/2023. Ex [employer] Other MR lumbar spine wo con TECHNIQUE: Multisequence, multiplanar imaging of the lumbar spine was obtained without the use of IV [employer] Other MR lumbar spine wo con contrast. [employer] Other MR lumbar spine wo con FINDINGS: Vertebral body heights appear maintained. No bone marrow edema is seen. Presumed [employer] Other MR lumbar spine wo con postradiation bone marrow changes are seen involving the L5 vertebral body and visualized sacrum. [employer] Other MR lumbar spine wo con Spinal cord terminates in normal position without abnormal cord signal. No paraspinal mass. [employer] Other MR lumbar spine wo con Visualized retroperitoneum demonstrates presumed bilateral parapelvic cysts. [employer] Other MR lumbar spine wo con L1-L2: Diffuse broad-based disc bulge is present with central protrusion type disc herniation noted. [employer] Other MR lumbar spine wo con There is ligamentum flavum hypertrophy and facet joint degenerative changes. Findings are causing [employer] Other MR lumbar spine wo con moderate canal and severe left-sided neural foraminal stenosis. Mild right-sided neural foraminal [employer] Other MR lumbar spine wo con stenosis. [employer] Other MR lumbar spine wo con L2-L3: 5 mm retrolisthesis is noted. Broad-based disc bulge is present with ligamentum flavum [employer] Other MR lumbar spine wo con hypertrophy and facet joint degenerative changes. Findings are causing moderate canal and severe [employer] Other MR lumbar spine wo con bilateral neural foraminal narrowing. [employer] Other MR lumbar spine wo con L3-L4: 3 mm retrolisthesis. Diffuse broad-based disc bulge is present with ligamentum flavum [employer] Other MR lumbar spine wo con hypertrophy and facet joint degenerative changes causing mild canal and severe bilateral neural [employer] Other MR lumbar spine wo con foraminal stenosis. [employer] Other MR lumbar spine wo con L4-L5: 6 mm of anterolisthesis. Diffuse broad-based disc bulge is present with ligamentum flavum [employer] Other MR lumbar spine wo con hypertrophy and facet joint degenerative changes causing severe canal and right-sided neural [employer] Other MR lumbar spine wo con foraminal stenosis. Moderate left-sided neural foraminal stenosis. [employer] Other MR lumbar spine wo con L5-S1: No posterior disc pathology is noted. Facet joint degenerative changes. No significant canal [employer] Other MR lumbar spine wo con stenosis. Severe bilateral foraminal stenosis. [employer] Other MR lumbar spine wo con MR/MR lumbar spine wo con [employer] Other MR lumbar spine wo con Impression: Multilevel degenerative disc disease as described above. [employer] Other MR lumbar spine wo con Impression dictated by: Hang Houser Jr., D.O.08/14/2023 2:30 PM [employer] Other MR lumbar spine wo con Dictation Location: [place] [address] [employer] Other MR lumbar spine wo con Transcribed By: PWS 08/14/23 1430 [employer] Other MR lumbar spine wo con Dictated By: Hang Houser Jr DO 08/14/23 [facility] [employer] Other MR lumbar spine wo con Signed By: [employer] Other MR lumbar spine wo con 08/14/23 1430 [employer] Other PT - Assessmentson 3 PT - Assessments [id number] CD:127 Normal [facility] ANES POSTPROC EVALon 023 ANES POSTPROC EVAL HNO ID: [id number] Author: Sybil Proctor MD Service: ? Author Type: Physician Type: Anesthesia Postprocedure Evaluation Filed: 07/09/2023 2:49 PM Note Text: POST ANESTHESIA EVALUATION NOTE : 1950 Procedure Summary Date: 07/09/23 Room / Location: Procedures Anesthesia Start: 926 Anesthesia Stop: 946 Procedure: SIGMOIDOSCOPY Diagnosis: Encounter for follow-up surveillance of rectal cancer (High risk colon cancer surveillance: Personal history of rectal cancer) Scheduled Providers: Deborah Norman MD; Elba Snell APRN.[employer]; Sybil Proctor MD; Santiago Sidhu RN Responsible Provider: Sybil Proctor MD Anesthesia Type: MAC ASA Status: 3 Anesthesia Type: MAC Last Vitals Vitals Value Taken Time BP 109/79 07/09/23 1010 Temp 36.2 ?C (97.2 ?F) 07/09/23 0946 HR SpO2 65 07/09/23 0946 Resp 15 07/09/23 1019 SpO2 98 % 07/09/23 1019 Vitals shown include unvalidated device data. Post Anesthesia Patient Status Patient Evaluation: PACU. PACU/ICU Patient Condition: stable. Anticipated Disposition: phase 2 then home. Neurological Status: aware and responsive. Pulmonary Status: breathing comfortably on room air Airway Control: returned to baseline unsupported. Cardiovascular Status: stable. Pain Management: clinically adequate Postoperative Hydration: acceptable. Intraoperative Events: no significant anesthesia events Post Operative Nausea/Vomiting Status: no significant post operative nausea or vomiting Recommendation: continue current plan of care. Anesthesia Observations No Documentation SIGNATURE: Sybil Proctor MD PATIENT NAME: Mervat Damon DATE: July 09, 2023 TIME: 2:49 PM CSN: [id number] [facility] ANES PRE-OPon 07-09-2023 ANES PRE-OP HNO ID: [id number] Author: Sybil Proctor MD Service: ? Author Type: Physician Type: Anesthesia Preprocedure Evaluation Filed: 07/09/2023 9:06 AM Note Text: ANESTHESIOLOGY DAY OF SURGERY NOTE : 1950 Procedure Information Date/Time: 07/09/23 0930 Scheduled providers: Deborah Norman MD; Elba Snell APRN.[employer]; Sybil Proctor MD; Santiago Sidhu RN Procedure: SIGMOIDOSCOPY Location: Procedures Estimated body mass index is 30.08 kg/m? as calculated from the following: Height as of 05/28/23: 187.7 cm (6' 1.9 ). Weight as of 05/28/23: 106 kg (233 lb 9.6 oz). Most recent hematocrit and potassium results: Hematocrit 37.4 06/20/2023 Potassium 3.9 06/20/2023 Relevant Problems No relevant active problems I - PHYSICAL EVALUATION AIRWAY Patient intubated: No. Tracheostomy tube not present Mallampati: II. TM distance: >3 FB. Neck ROM: full ROM without neurological symptoms. Mouth opening: adequate. Short neck: no. Thick neck: no DENTAL Dental findings: teeth intact. Dentures, upper: complete. Dentures, lower: complete. Additional exam findings: no II - ANESTHESIA PLAN ASA Score: 3 Anesthetic Plan: MAC The patient is not a current smoker. NPO Status: adequate Beta Taina Administration of chronic beta taina medication not planned. Reasons for not administering beta taina perioperatively: other Monitoring Plan Monitoring plan: standard ASA. Post Procedure Analgesic Plan Postoperative analgesic plan: parenteral or oral opioids. Informed Consent Anesthetic risks, benefits, alternatives, personnel and consent discussed: yes. Patient / Responsible [employer] agrees to proceed: yes Patient / Surrogate agrees to blood products: blood products not planned DNR status not reviewed with patient and/or family prior to surgery. Significant changes in the patient condition since the History and Physical, not otherwise documented in primary service progress note: no. Potential Anesthesia issues that may suggest increased risk of complications or contraindication to planned procedure: none. No vitals data found for the desired time range. Outpatient Medications as of 07/09/2023 Medication Sig - gabapentin (NEURONTIN) 300 mg capsule Take 1 capsule by mouth daily at bedtime for 30 days. - rivaroxaban (XARELTO) 20 mg tablet Take 1 tablet by mouth daily with dinner. - iv contrast (will be provided with radiology test) MRI Rectum Inject, intravenously, once for 1 dose. No IV access, insert saline lock prior to the beginning of sedation, infusion, injection of imaging exam. Discontinue saline lock post exam. If Pt has a central line or IVAD, may access for administration according to line specific nursing protocol. Once exam is complete flush line and de-access according to line specific nursing protocol in the MR contrast administration guidelines link. - enteric contrast (will be provided with radiology test) MRI RECTUM WO/W. Administer, As Directed One Time Only, via Oral, Rectal, both Oral and Rectal, Enteric Tube, Stoma or Indwelling Catheter,? Enteric Contrast as designated per enteric contrast guidelines - cyclobenzaprine (FLEXERIL) 10 mg tablet Take 10 mg by mouth. - iv contrast (will be provided with radiology test) MRI Rectum Inject, intravenously, once for 1 dose. No IV access, insert saline lock prior to the beginning of sedation, infusion, injection of imaging exam. Discontinue saline lock post exam. If Pt has a central line or IVAD, may access for administration according to line specific nursing protocol. Once exam is complete flush line and de-access according to line specific nursing protocol in the MR contrast administration guidelines link. - enteric contrast (will be provided with radiology test) MRI RECTUM WO/W. Administer, As Directed One Time Only, via Oral, Rectal, both Oral and Rectal, Enteric Tube, Stoma or Indwelling Catheter,? Enteric Contrast as designated per enteric contrast guidelines - calcium carbonate (CALCIUM 600 ORAL) Take 1 tablet by mouth once daily. - diphenhydrAMINE-Acetami nophen (TYLENOL PM EXTRA STRENGTH) 25-500 mg tab Take 1 tablet by mouth daily at bedtime. - glucosamine/chondr perez A sod (GLUCOSAMINE-CHONDROITI N) 1,500-1,200 mg/30 mL liqd Take by mouth once daily. - hydroCHLOROthiazide (HYDRODIURIL, ESIDRIX) 12.5 mg capsule Take 12.5 mg by mouth once daily. - finasteride (PROSCAR) 5 mg tablet Take by mouth once daily. - acetaminophen 325 mg cap Take by mouth as needed. - predniSONE (DELTASONE) 5 mg tablet Take 5 mg by mouth once daily. - valsartan (DIOVAN) 80 mg tablet Take 80 mg by mouth once daily. - carvedilol (COREG) 6.25 mg tablet Take 6.25 mg by mouth twice daily with meals. - folic acid 1 mg tablet Take 1 mg by mouth once daily. - tamsulosin ER (FLOMAX) 0.4 mg cap Take 0.4 mg by mouth twice daily. - Ascorbic Acid 100 mg tablet Take 100 mg by mouth twice daily. No current facility (more content not included)... [facility] ANES PREOPon 07-09-2023 ANES PREOP HNO ID: [id number] Author: Toshia Mixon MD Service: Colorectal Author Type: Resident Type: Anesthesia PreOp Filed: 07/09/2023 9:24 AM Note Text: PROCEDURAL SEDATION HISTORY AND PHYSICAL EXAM SERVICE DATE: 07/09/2023 SERVICE TIME: 9:22 AM Subjective HPI: This is a 72 year old male who presents for sigmoidoscopy. Last Xarelto yesterday. Change in bowel habits: Incontinence - few times a week Last sigmoidoscopy date: 03/2023 PAST ANESTHESIA HISTORY: No history of adverse event PAST MEDICAL HISTORY Diagnosis Date Acute low back pain with possible spinal stenosis of less than six weeks' duration Adenocarcinoma of rectum (HCC) Arthritis Bilateral renal cysts peripelvic BPH with urinary obstruction Cholelithiasis History of kidney stones Non-ischemic cardiomyopathy (HCC) Pulmonary emboli (HCC) 2019 left lower lobe RA (rheumatoid arthritis) (HCC) PAST SURGICAL HISTORY Procedure Laterality Date COLONOSCOPY HAMMERTOE REVISION, ONE TOE HEMORRHOID SURGERY HX HERNIA REPAIR HX LITHOTRIPSY PROC UNILATERAL REMV CATARACT EXTRACAP,INSERT LENS Prior to Admission medications as of 07/09/23 0849 Medication Sig Last Dose Taking gabapentin (NEURONTIN) 300 mg capsule Take 1 capsule by mouth daily at bedtime for 30 days. 07/08/2023 Yes rivaroxaban (XARELTO) 20 mg tablet Take 1 tablet by mouth daily with dinner. 07/08/2023 Yes glucosamine/chondr perez A sod (GLUCOSAMINE-CHONDROITI N) 1,500-1,200 mg/30 mL liqd Take by mouth once daily. 07/08/2023 Yes hydroCHLOROthiazide (HYDRODIURIL, ESIDRIX) 12.5 mg capsule Take 12.5 mg by mouth once daily. 07/08/2023 Yes finasteride (PROSCAR) 5 mg tablet Take by mouth once daily. 07/08/2023 Yes acetaminophen 325 mg cap Take by mouth as needed. 07/08/2023 Yes predniSONE (DELTASONE) 5 mg tablet Take 5 mg by mouth once daily. 07/08/2023 Yes valsartan (DIOVAN) 80 mg tablet Take 80 mg by mouth once daily. 07/08/2023 Yes carvedilol (COREG) 6.25 mg tablet Take 6.25 mg by mouth twice daily with meals. 07/08/2023 Yes folic acid 1 mg tablet Take 1 mg by mouth once daily. 07/08/2023 Yes tamsulosin ER (FLOMAX) 0.4 mg cap Take 0.4 mg by mouth twice daily. 07/08/2023 Yes Ascorbic Acid 100 mg tablet Take 100 mg by mouth twice daily. 07/08/2023 Yes iv contrast (will be provided with radiology test) MRI Rectum Inject, intravenously, once for 1 dose. No IV access, insert saline lock prior to the beginning of sedation, infusion, injection of imaging exam. Discontinue saline lock post exam. If Pt has a central line or IVAD, may access for administration according to line specific nursing protocol. Once exam is complete flush line and de-access according to line specific nursing protocol in the MR contrast administration guidelines link. enteric contrast (will be provided with radiology test) MRI RECTUM WO/W. Administer, As Directed One Time Only, via Oral, Rectal, both Oral and Rectal, Enteric Tube, Stoma or Indwelling Catheter, Enteric Contrast as designated per enteric contrast guidelines Unknown cyclobenzaprine (FLEXERIL) 10 mg tablet Take 10 mg by mouth. Unknown iv contrast (will be provided with radiology test) MRI Rectum Inject, intravenously, once for 1 dose. No IV access, insert saline lock prior to the beginning of sedation, infusion, injection of imaging exam. Discontinue saline lock post exam. If Pt has a central line or IVAD, may access for administration according to line specific nursing protocol. Once exam is complete flush line and de-access according to line specific nursing protocol in the MR contrast administration guidelines link. enteric contrast (will be provided with radiology test) MRI RECTUM WO/W. Administer, As Directed One Time Only, via Oral, Rectal, both Oral and Rectal, Enteric Tube, Stoma or Indwelling Catheter, Enteric Contrast as designated per enteric contrast guidelines Unknown calcium carbonate (CALCIUM 600 ORAL) Take 1 tablet by mouth once daily. Unknown diphenhydrAMINE-Acetami nophen (TYLENOL PM EXTRA STRENGTH) 25-500 mg tab Take 1 tablet by mouth daily at bedtime. Unknown ALLERGIES No Known Allergies Objective PHYSICAL EXAM: The remainder of the physical exam is noncontributory. GENERAL: Alert, no distress, cooperative, No Distress ABDOMEN: Abdomen soft, non-tender, BS normal, No masses or organomegaly AIRWAY: LUNGS: Nonlabored breathing, no audible wheezing CARDIAC: regular rate and rhythm Assessment/Plan ASA Class: Active Problems: * No active hospital problems. * Resolved Problems: * No resolved hospital problems. * Provisional Diagnosis/Treatment Plan: Plan for Sigmoidoscopy, possibly polypectomy, possible biopsy Risk and benefits discussed with patient Consent obtained SIGNATURE: Toshia Mixon MD PATIENT NAME: Mervat Damon DATE: July 09, 2023 TIME: 9:22 AM Normal [facility] Flexible Sigmoidoscopyon Flexible sigmoidoscopy [facility] Gastrointestinal Endoscopy Patient Name: Mervat Damon Procedure Date: 07/09/2023 9:19 AM Date of : 1950 Admit Type: Outpatient Age: 72 Room: [place] [address] Gender: Male Note Status: Finalized Attending MD: Deborah Norman MD Procedure: Flexible Sigmoidoscopy Indications: High risk colon cancer surveillance: Personal history of rectal cancer Providers: Deborah Norman MD Patient Profile: This is a 72 year old male. Refer to note in patient chart for documentation of history and physical. Last Colonoscopy: within the past 3 months. Referring Physician: Deborah Norman MD (Referring MD) Medicines: Monitored Anesthesia Care Complications: No immediate complications. Requesting Provider: Procedure: Pre-Anesthesia Assessment: - Prior to the procedure, a History and Physical was performed, and patient medications and allergies were reviewed. The patient is competent. The risks and benefits of the procedure and the sedation options and risks were discussed with the patient. All questions were answered and informed consent was obtained. Patient identification and proposed procedure were verified by the physician and the nurse in the pre-procedure area in the endoscopy suite. Mental Status Examination: alert and oriented. Airway Examination: normal oropharyngeal airway and neck mobility. ASA Grade Assessment: III - A patient with severe systemic disease. After reviewing the risks and benefits, the patient was deemed in satisfactory condition to undergo the procedure. The anesthesia plan was to use monitored anesthesia care (MAC). Immediately prior to administration of medications, the patient was re-assessed for adequacy to receive sedatives. The heart rate, respiratory rate, oxygen saturations, blood pressure, adequacy of pulmonary ventilation, and response to care were monitored throughout the procedure. The physical status of the patient was re-assessed after the procedure. After obtaining informed consent, the scope was passed under direct vision. The Colonoscope was introduced through the anus and advanced to the rectosigmoid junction. The flexible sigmoidoscopy was accomplished without difficulty. The patient tolerated the procedure well. The quality of the bowel preparation was fair. Moderate Sedation: MAC anesthesia was administered by the anesthesia team. Total Procedure Duration: 0 hours 7 minutes 17 seconds Findings: The perianal and digital rectal examinations were normal. A scar was found in the distal rectum. The scar tissue was healthy in appearance. There was no evidence of the previous polyp. The exam was otherwise without abnormality. Impression: - Preparation of the colon was fair. - Scar in the distal rectum. - The examination was otherwise normal. - No specimens collected. Recommendation: - Discharge patient to home. - Resume previous diet. - Repeat flexible sigmoidoscopy in 4 months for surveillance. Procedure Code(s): --- Professional --- 03877, 52, Sigmoidoscopy, flexible; diagnostic, including collection of specimen(s) by brushing or washing, when performed (separate procedure) CPT copyright 2020 [employer]. All rights reserved. The codes documented in this report are preliminary and upon surgical coder review may be revised to meet current compliance requirements. Attending Participation: I was present and participated during the entire procedure, including non-tripp portions. Scope In: 9:35:47 AM Scope Out: 9:43:04 AM MD Deborah Harper MD 07/09/2023 9:45:59 AM This report has been signed electronically by Deborah Norman MD Number of Addenda: 0 Note Initiated On: 07/09/2023 9:19 AM Estimated Blood Loss: Estimated blood loss: none. Normal [facility] Nonvisit Note - PTon 023 Nonvisit Note - PT cx will be out of town Normal [facility] SIGMOIDOSCOPYon 07-09-2023 [facility] Consultation Noteon 07-04-20 23 Consultation Note [id number] :127 Normal [facility] PT - Assessmentson 3 PT - Assessments [id number]#1.00C D:127 Normal [facility] Nonvisit Note - PTon 023 Nonvisit Note - PT Pt. did not show to 06/27/23 outpatient PT re-eval appt. network desktop support specialist messaged to call pt. to reschedule pt.'s re-eval as he has further appointments scheduled and needs a re-eval. Normal [facility] CBC W Auto Differential pane l (Bld)on 06-20-2023 Basophils (Bld) [#/Vol] 0.05 10*3/uL Normal <0.11 [facility] Comment on above: Order Comment: Speci men Type: BLOOD SPECIMENOrdering Facility: [facility] Address: [address] [place] [address] Performed By: #### 5 7021-8 ####[facility] LABIA [id number] [place] [address] Basophils/100 WBC (Bld) 0.8 % Normal [facility] Comment on above: Order Comment: Speci men Type: BLOOD SPECIMENOrdering Facility: [facility] Address: [address] [place] [address] Performed By: #### 5 7021-8 ####[facility] LABCLIA [id number] [place] [address] Differential cell count method Nom (Bld) Auto Normal [facility] Comment on above: Order Comment: Speci men Type: BLOOD SPECIMENOrdering Facility: [facility] Address: [address] [place] [address] Performed By: #### 5 7021-8 ####[facility] LABCLIA [id number] [place] [address] Eosinophils (Bld) [#/Vol] 0.20 10*3/uL Normal <0.46 [facility] Comment on above: Order Comment: Speci men Type: BLOOD SPECIMENOrdering Facility: [facility] Address: [address] [place] [address] Performed By: #### 5 7021-8 ####[facility] LABCLIA [id number] [place] [address] Eosinophils/100 WBC (Bld) 3.2 % Normal [facility] Comment on above: Order Comment: Speci men Type: BLOOD SPECIMENOrdering Facility: [facility] Address: [address] [place] [address] Performed By: #### 5 7021-8 ####[facility] LABCLIA [id number] [place] [address] Erythrocyte distribution width (RBC) [Ratio] 16.4 % High 11.5-15.0 [facility] Comment on above: Order Comment: Speci men Type: BLOOD SPECIMENOrdering Facility: [facility] Address: [address] [place] [address] Performed By: #### 5 7021-8 ####[facility] LABCLIA [id number] [place] [address] Hematocrit (Bld) [Volume fraction] 37.4 % Low 39.0-51.0 [facility] Comment on above: Order Comment: Speci men Type: BLOOD SPECIMENOrdering Facility: [facility] Address: [address] [address] Performed By: #### 5 7021-8 ####[facility] LABCLIA [id number] [place] [address] Hemoglobin (Bld) [Mass/Vol] 12.1 g/dL Low 13.0-17.0 [facility] Comment on above: Order Comment: Speci men Type: BLOOD SPECIMENOrdering Facility: [facility] Address: [address] [place] [address] Performed By: #### 5 7021-8 ####[facility] LABCLIA [id number] [place] [address] Immature granulocytes (Bld) [#/Vol] 0.04 10*3/uL Normal <0.10 [facility] Comment on above: Order Comment: Speci men Type: BLOOD SPECIMENOrdering Facility: [facility] Address: [address] [place] [address] Performed By: #### 5 7021-8 ####[facility] LABCLIA [id number] [place] [address] Immature granulocytes/100 WBC (Bld) 0.6 % Normal [facility] Comment on above: Order Comment: Speci men Type: BLOOD SPECIMENOrdering Facility: [facility] Address: [address] [place] [address] Performed By: #### 5 7021-8 ####[facility] LABCLIA [id number] [place] [address] Lymphocytes (Bld) [#/Vol] 0.82 10*3/uL Low 1.00-4.00 [facility] Comment on above: Order Comment: Speci men Type: BLOOD SPECIMENOrdering Facility: [facility] Address: [address] [place] [address] Performed By: #### 5 7021-8 ####[facility] LABCLIA [id number] [place] [address] Lymphocytes/100 WBC (Bld) 13.1 % Normal [facility] Comment on above: Order Comment: Speci men Type: BLOOD SPECIMENOrdering Facility: [facility] Address: [address] [place] [address] Performed By: #### 5 7021-8 ####[facility] LABCLIA [id number] [place] [address] MCH (RBC) [Entitic mass] 31.7 pg Normal 26.0-34.0 [facility] Comment on above: Order Comment: Speci men Type: BLOOD SPECIMENOrdering Facility: [facility] Address: [address] [address] Performed By: #### 5 7021-8 ####[facility] LABCLIA [id number] [place] [address] MCHC (RBC) [Mass/Vol] 32.4 g/dL Normal 30.5-36.0 [facility] Comment on above: Order Comment: Speci men Type: BLOOD SPECIMENOrdering Facility: [facility] Address: [address] [address] Performed By: #### 5 7021-8 ####[facility] LABCLIA [id number] [place] [address] MCV (RBC) [Entitic vol] 97.9 fL Normal 80.0-100.0 [facility] Comment on above: Order Comment: Speci men Type: BLOOD SPECIMENOrdering Facility: [facility] Address: [address] [address] Performed By: #### 5 7021-8 ####[facility] LABIA [id number] [place] [address] Monocytes (Bld) [#/Vol] 0.83 10*3/uL Normal <0.87 [facility] Comment on above: Order Comment: Speci men Type: BLOOD SPECIMENOrdering Facility: [facility] Address: [address] [address] Performed By: #### 5 7021-8 ####[facility] LABCLIA [id number] [place] [address] Monocytes/100 WBC (Bld) 13.3 % Normal [facility] Comment on above: Order Comment: Speci men Type: BLOOD SPECIMENOrdering Facility: [facility] Address: [address] [address] Performed By: #### 5 7021-8 ####[facility] LABCLIA [id number] [place] [address] Neutrophils (Bld) [#/Vol] 4.32 10*3/uL Normal 1.45-7.50 [facility] Comment on above: Order Comment: Speci men Type: BLOOD SPECIMENOrdering Facility: [facility] Address: [address] [place] [address] Performed By: #### 5 7021-8 ####[facility] LABCLIA [id number] [place] [address] Neutrophils/100 WBC (Bld) 69.0 % Normal [facility] Comment on above: Order Comment: Speci men Type: BLOOD SPECIMENOrdering Facility: [facility] Address: [address] [place] [address] Performed By: #### 5 7021-8 ####[facility] LABCLIA [id number] [place] [address] Nucleated RBC (Bld) [#/Vol] 10*3/uL Normal <0.01 [facility] Comment on above: Order Comment: Speci men Type: BLOOD SPECIMENOrdering Facility: [facility] Address: [address] [place] [address] Performed By: #### 5 7021-8 ####[facility] LABCLIA [id number] [place] [address] Nucleated RBC/100 WBC (Bld) [Ratio] 0.0 /100 WBC Normal [facility] Comment on above: Order Comment: Speci men Type: BLOOD SPECIMENOrdering Facility: [facility] Address: [address] [place] [address] Performed By: #### 5 7021-8 ####[facility] LABIA [id number] [place] [address] Platelet mean volume (Bld) [Entitic vol] 9.7 fL Normal 9.0-12.7 [facility] Comment on above: Order Comment: Speci men Type: BLOOD SPECIMENOrdering Facility: [facility] Address: [address] [place] [address] Performed By: #### 5 7021-8 ####[facility] LABCLIA [id number] [place] [address] Platelets (Bld) [#/Vol] 196 10*3/uL Normal 150-400 [facility] Comment on above: Order Comment: Speci men Type: BLOOD SPECIMENOrdering Facility: [facility] Address: [address] [place] [address] Performed By: #### 5 7021-8 ####[facility] LABIA [id number] [place] [address] RBC (Bld) [#/Vol] 3.82 10*6/uL Low 4.20-6.00 [facility] Comment on above: Order Comment: Speci men Type: BLOOD SPECIMENOrdering Facility: [facility] Address: [address] [place] [address] Performed By: #### 5 7021-8 ####[facility] LABIA [id number] [place] [address] WBC (Bld) [#/Vol] 6.26 10*3/uL Normal 3.70-11.00 [facility] Comment on above: Order Comment: Speci men Type: BLOOD SPECIMENOrdering Facility: [facility] Address: [address] [place] [address] Performed By: #### 5 7021-8 ####[facility] LABIA [id number] [place] [address] Basophils (Bld) [#/Vol] 0.05 10*3/uL <0.11 k/uL [facility] Basophils/100 WBC (Bld) 0.8 % [facility] Differential cell count method Nom (Bld) Auto [facility] Eosinophils (Bld) [#/Vol] 0.20 10*3/uL <0.46 k/uL [facility] Eosinophils/100 WBC (Bld) 3.2 % [facility] Erythrocyte distribution width (RBC) [Ratio] 16.4 % High 11.5 - 15.0 % [facility] Hematocrit (Bld) [Volume fraction] 37.4 % Low 39.0 - 51.0 % [facility] Hemoglobin (Bld) [Mass/Vol] 12.1 g/dL Low 13.0 - 17.0 g/dL [facility] Immature granulocytes (Bld) [#/Vol] 0.04 10*3/uL <0.10 k/uL [facility] Immature granulocytes/100 WBC (Bld) 0.6 % [facility] Lymphocytes (Bld) [#/Vol] 0.82 10*3/uL Low 1.00 - 4.00 k/uL [facility] Lymphocytes/100 WBC (Bld) 13.1 % [facility] MCH (RBC) [Entitic mass] 31.7 pg 26.0 - 34.0 pg [facility] MCHC (RBC) [Mass/Vol] 32.4 g/dL 30.5 - 36.0 g/dL [facility] MCV (RBC) [Entitic vol] 97.9 fL 80.0 - 100.0 fL [facility] Monocytes (Bld) [#/Vol] 0.83 10*3/uL <0.87 k/uL [facility] Monocytes/100 WBC (Bld) 13.3 % [facility] Neutrophils (Bld) [#/Vol] 4.32 10*3/uL 1.45 - 7.50 k/uL [facility] Neutrophils/100 WBC (Bld) 69.0 % [facility] Nucleated RBC (Bld) [#/Vol] <0.01 k/uL [facility] Nucleated RBC/100 WBC (Bld) [Ratio] 0.0 /100 WBC [facility] Platelet mean volume (Bld) [Entitic vol] 9.7 fL 9.0 - 12.7 fL [facility] Platelets (Bld) [#/Vol] 196 10*3/uL 150 - 400 k/uL [facility] RBC (Bld) [#/Vol] 3.82 10*6/uL Low 4.20 - 6.0 0 m/uL [facility] WBC (Bld) [#/Vol] 6.26 10*3/uL 3.70 - 11.00 k/uL [facility] CEA SerPl-mCncon 06-20-2023 Carcinoembryonic Ag [Mass/Vol] 1.7 ng/mL Normal <=2.9 [facility] Comment on above: Order Comment: Speci men Type: BLOOD SPECIMENOrdering Facility: [facility] Address: [address] [place] [address] Result Comment: Carc inoembryonic antigen test is used as an aid in monitoring response to treatment or recurrence in patients with established colorectal, breast, lung, prostatic, pancreatic, and ovarian carcinomas. Clinical correlation is required.The Carcinoembryonic antigen test was performed using the [employer] Unicel DXI paramagnetic particle chemiluminescent immunoassay method. Results obtained with different assay methods or kits cannot be used interchangeably. Performed By: #### 2 039-6 ####[facility] LABCLIA [id number] [place] [address] [place] CNPNon 06-20-2023 CNPN Normal [facility] CT ABDOMEN W IVCONon 023 CT ABDOMEN W IVCON Normal [facility] CT CHEST W IVCONon 3 CT CHEST W IVCON Normal [facility] Comprehensive metabolic 2000 panelon 06-20-2023 Albumin [Mass/Vol] 3.9 g/dL Normal 3.9-4.9 [facility] Comment on above: Order Comment: Speci men Type: BLOOD SPECIMENOrdering Facility: [facility] Address: [address] Performed By: #### 2 4323-8, 11363-3 ####[facility] LABCLIA [id number] [place] [address] ALP [Catalytic activity/Vol] 97 U/L Normal 38-113 [facility] Comment on above: Order Comment: Speci men Type: BLOOD SPECIMENOrdering Facility: [facility] Address: [address] [place] [address] Performed By: #### 2 4323-8, ####[facility] LABCLIA [id number] [place] [address] ALT [Catalytic activity/Vol] 9 U/L Low 10-54 [facility] Comment on above: Order Comment: Speci men Type: BLOOD SPECIMENOrdering Facility: [facility] Address: [address] [place] [address] Performed By: #### 2 4323-8, ####[facility] LABCLIA [id number] [place] [address] Anion gap [Moles/Vol] 10 mmol/L Normal 9-18 [facility] Comment on above: Order Comment: Speci men Type: BLOOD SPECIMENOrdering Facility: [facility] Address: [address] [place] [address] Performed By: #### 2 4323-8, ####[facility] LABCLIA [id number] [place] [address] AST [Catalytic activity/Vol] 11 U/L Low 14-40 [facility] Comment on above: Order Comment: Speci men Type: BLOOD SPECIMENOrdering Facility: [facility] Address: [address] [place] [address] Performed By: #### 2 4323-8, ####[facility] LABCLIA [id number] [place] [address] Bilirubin [Mass/Vol] 0.4 mg/dL Normal 0.2-1.3 [facility] Comment on above: Order Comment: Speci men Type: BLOOD SPECIMENOrdering Facility: [facility] Address: [address] [place] [address] Performed By: #### 2 4323-8, ####[facility] LABCLIA [id number] [place] [address] Calcium [Mass/Vol] 9.3 mg/dL Normal 8.5-10.2 [facility] Comment on above: Order Comment: Speci men Type: BLOOD SPECIMENOrdering Facility: [facility] Address: [address] [address] Performed By: #### 2 4323-8, ####[facility] LABCLIA [id number] [place] [address] Chloride [Moles/Vol] 109 mmol/L High 97-105 [facility] Comment on above: Order Comment: Speci men Type: BLOOD SPECIMENOrdering Facility: [facility] Address: [address] [address] Performed By: #### 2 4323-8, ####[facility] LABCLIA [id number] [place] [address] CO2 [Moles/Vol] 26 mmol/L Normal 22-30 [facility] Comment on above: Order Comment: Speci men Type: BLOOD SPECIMENOrdering Facility: [facility] Address: [address] [place] [address] Performed By: #### 2 4323-8, ####[facility] LABIA [id number] [place] [address] Creatinine [Mass/Vol] 1.14 mg/dL Normal 0.73-1.22 [facility] Comment on above: Order Comment: Speci men Type: BLOOD SPECIMENOrdering Facility: [facility] Address: [address] [place] [address] Performed By: #### 2 4323-8, ####[facility] LABCLIA [id number] [place] [address] Creatinine and Glomerular filtration rate.predicted panel (S/P/Bld) 69 mL/min/1.73m??? Normal >=60 [facility] Comment on above: Order Comment: Speci men Type: BLOOD SPECIMENOrdering Facility: [facility] Address: [address] [place] [address] Result Comment: Rebekah mated Glomerular Filtration Rate (eGFR) is calculated using the 2020 CKD-EPI creatinine equation. This equation utilizes serum creatinine, sex, and age as parameters. The creatinine assay has traceable calibration to isotope dilution-mass spectrometry. Refer to KDIGO guidelines for clinical interpretation. In patients with unstable renal function, e.g. those with acute kidney injury, the eGFR may not accurately reflect actual GFR. Performed By: #### 2 4323-8, ####[facility] LABIA [id number] [place] [address] Glucose [Mass/Vol] 90 mg/dL Normal 74-99 [facility] Comment on above: Order Comment: Nazario brooks Type: BLOOD SPECIMENOrdering Facility: [facility] Address: [address] [place], [place] [id number] Result Comment: The [place] Diabetes Association (ADA) provides guidance for cutoff values for fasting glucose and random glucose. The ADA defines fasting as no caloric intake for at least 8 hours. Fasting plasma glucose results between 100 to 125 mg/dL indicate increased risk for diabetes (prediabetes).Fasting plasma glucose results greater than or equal to 126 mg/dL meet the criteria for diagnosis of diabetes. In the absence of unequivocal hyperglycemia, results should be confirmed by repeat testing. In a patient with classic symptoms of hyperglycemia or hyperglycemic crisis, random plasma glucose results greater than or equal to 200 mg/dL meet the criteria for diagnosis of diabetes.Reference: Standards of Medical Care in Diabetes 2016, [place] Diabetes Association. Diabetes Care. 2016.39(Suppl 1). Performed By: #### 2 4323-8, ####[facility] LABIA [id number] [place] [address] Potassium [Moles/Vol] 3.9 mmol/L Normal 3.7-5.1 [facility] Comment on above: Order Comment: Nazario brooks Type: BLOOD SPECIMENOrdering Facility: [facility] Address: [address] [id number] Performed By: #### 2 4323-8, ####[facility] LABCLIA [id number] [place] [address] Protein [Mass/Vol] 6.1 g/dL Low 6.3-8.0 [facility] Comment on above: Order Comment: Speci men Type: BLOOD SPECIMENOrdering Facility: [facility] Address: [address] [place] [address] Performed By: #### 2 4323-8, ####[facility] LABCLIA [id number] [place] [address] Sodium [Moles/Vol] 145 mmol/L High 136-144 [facility] Comment on above: Order Comment: Speci men Type: BLOOD SPECIMENOrdering Facility: [facility] Address: [address] [place] [address] Performed By: #### 2 4323-8, ####[facility] LABCLIA [id number] [place] [address] Urea nitrogen [Mass/Vol] 21 mg/dL Normal 9-24 [facility] Comment on above: Order Comment: Speci men Type: BLOOD SPECIMENOrdering Facility: [facility] Address: [address] [place] [address] Performed By: #### 2 4323-8, ####[facility] LABCLIA [id number] [place] [address] Albumin [Mass/Vol] 3.9 g/dL 3.9 - 4.9 g/dL [facility] ALP [Catalytic activity/Vol] 97 U/L 38 - 113 U/L [facility] ALT [Catalytic activity/Vol] 9 U/L Low 10 - 54 U/L [facility] Anion gap [Moles/Vol] 10 mmol/L 9 - 18 mmol/L [facility] AST [Catalytic activity/Vol] 11 U/L Low 14 - 40 U/L [facility] Bilirubin [Mass/Vol] 0.4 mg/dL 0.2 - 1 .3 mg/dL [facility] Calcium [Mass/Vol] 9.3 mg/dL 8.5 - 10. 2 mg/dL [facility] Chloride [Moles/Vol] 109 mmol/L High 97 - 10 5 mmol/L [facility] CO2 [Moles/Vol] 26 mmol/L 22 - 30 mmol/L [facility] Creatinine [Mass/Vol] 1.14 mg/dL 0.73 - 1.22 mg/dL [facility] Estimated Glomerular Filtration Rate 69 mL/min/1.73m >=60 mL/min/1.73 m [facility] Glucose [Mass/Vol] 90 mg/dL 74 - 99 mg/dL [facility] Potassium [Moles/Vol] 3.9 mmol/L 3.7 - 5.1 mmol/L [facility] Protein [Mass/Vol] 6.1 g/dL Low 6.3 - 8.0 g/dL [facility] Sodium [Moles/Vol] 145 mmol/L High 136 - 144 mmol/L [facility] Urea nitrogen [Mass/Vol] 21 mg/dL 9 - 24 mg/dL [facility] MAGNESIUM BLDon 06-20-2023 Magnesium [Mass/Vol] 2.0 mg/dL 1.7 - 2 .3 mg/dL [facility] Magnesium SerPl-mCncon 06-20 Magnesium [Mass/Vol] 2.0 mg/dL Normal 1.7-2.3 [facility] Comment on above: Order Comment: Speci men Type: BLOOD SPECIMENOrdering Facility: [facility] Address: [address] [place] [id number] Performed By: #### 2 4323-8, 76012-1 ####[facility] LABIA [id number] [place] [address] [facility] 06-19-2023 CNPN Normal [facility] PT - Home Exercise Programon 06-10-2023 PT - Home Exercise Program [id number]#1.00 CD:127 Normal [facility] Consultation Noteon 06-07-20 23 Consultation Note [id number]#1.00C D:127 Normal [facility] Operative Reporton Operative Report [id number]#1.00 CD:127 Normal [facility] PT - Home Exercise Programon 06-06-2023 PT - Home Exercise Program [id number]#1.00C D:127 Normal [facility] CEA BLDon 05-29-2023 Carcinoembryonic Ag [Mass/Vol] 2.2 ng/mL <=2.9 ng/mL [facility] CBC W Auto Differential pane l (Bld)on 05-28-2023 Basophils (Bld) [#/Vol] 0.04 10*3/uL Normal <0.11 [facility] Comment on above: Order Comment: Speci men Type: BLOOD SPECIMENOrdering Facility: [facility] Address: [address] [place] [address] Performed By: #### 5 7021-8 ####[facility] LABCLIA [id number] [place] [address] Basophils/100 WBC (Bld) 0.4 % Normal [facility] Comment on above: Order Comment: Speci men Type: BLOOD SPECIMENOrdering Facility: [facility] Address: [address] [place] [address] Performed By: #### 5 7021-8 ####[facility] LABCLIA [id number] [place] [address] Differential cell count method Nom (Bld) Auto Normal [facility] Comment on above: Order Comment: Speci men Type: BLOOD SPECIMENOrdering Facility: [facility] Address: [address] [place] [address] Performed By: #### 5 7021-8 ####[facility] LABCLIA [id number] [place] [address] Eosinophils (Bld) [#/Vol] 0.16 10*3/uL Normal <0.46 [facility] Comment on above: Order Comment: Speci men Type: BLOOD SPECIMENOrdering Facility: [facility] Address: [address] [address] Performed By: #### 5 7021-8 ####[facility] LABCLIA [id number] [place] [address] Eosinophils/100 WBC (Bld) 1.7 % Normal [facility] Comment on above: Order Comment: Speci men Type: BLOOD SPECIMENOrdering Facility: [facility] Address: [address] [place] [address] Performed By: #### 5 7021-8 ####[facility] LABCLIA [id number] [place] [address] Erythrocyte distribution width (RBC) [Ratio] 17.1 % High 11.5-15.0 [facility] Comment on above: Order Comment: Speci men Type: BLOOD SPECIMENOrdering Facility: [facility] Address: [address] [place] [address] Performed By: #### 5 7021-8 ####[facility] LABIA [id number] [place] [address] Hematocrit (Bld) [Volume fraction] 37.7 % Low 39.0-51.0 [facility] Comment on above: Order Comment: Speci men Type: BLOOD SPECIMENOrdering Facility: [facility] Address: [address] [place] [address] Performed By: #### 5 7021-8 ####[facility] LABCLIA [id number] [place] [address] Hemoglobin (Bld) [Mass/Vol] 12.2 g/dL Low 13.0-17.0 [facility] Comment on above: Order Comment: Speci men Type: BLOOD SPECIMENOrdering Facility: [facility] Address: [address] [place] [address] Performed By: #### 5 7021-8 ####[facility] LABCLIA [id number] [place] [address] Immature granulocytes (Bld) [#/Vol] 0.05 10*3/uL Normal <0.10 [facility] Comment on above: Order Comment: Speci men Type: BLOOD SPECIMENOrdering Facility: [facility] Address: [address] [address] Performed By: #### 5 7021-8 ####[facility] LABCLIA [id number] [place] [address] Immature granulocytes/100 WBC (Bld) 0.5 % Normal [facility] Comment on above: Order Comment: Speci men Type: BLOOD SPECIMENOrdering Facility: [facility] Address: [address] [address] Performed By: #### 5 7021-8 ####[facility] LABCLIA [id number] [place] [address] Lymphocytes (Bld) [#/Vol] 0.65 10*3/uL Low 1.00-4.00 [facility] Comment on above: Order Comment: Speci men Type: BLOOD SPECIMENOrdering Facility: [facility] Address: [address] [address] Performed By: #### 5 7021-8 ####[facility] LABIA [id number] [place] [address] Lymphocytes/100 WBC (Bld) 6.8 % Normal [facility] Comment on above: Order Comment: Speci men Type: BLOOD SPECIMENOrdering Facility: [facility] Address: [address] [place] [address] Performed By: #### 5 7021-8 ####[facility] LABCLIA [id number] [place] [address] MCH (RBC) [Entitic mass] 32.3 pg Normal 26.0-34.0 [facility] Comment on above: Order Comment: Speci men Type: BLOOD SPECIMENOrdering Facility: [facility] Address: [address] [place] [address] Performed By: #### 5 7021-8 ####[facility] LABCLIA [id number] [place] [address] MCHC (RBC) [Mass/Vol] 32.4 g/dL Normal 30.5-36.0 [facility] Comment on above: Order Comment: Speci men Type: BLOOD SPECIMENOrdering Facility: [facility] Address: [address] [place] [address] Performed By: #### 5 7021-8 ####[facility] LABCLIA [id number] [place] [address] MCV (RBC) [Entitic vol] 99.7 fL Normal 80.0-100.0 [facility] Comment on above: Order Comment: Speci men Type: BLOOD SPECIMENOrdering Facility: [facility] Address: [address] [place] [address] Performed By: #### 5 7021-8 ####[facility] LABIA [id number] [place] [address] Monocytes (Bld) [#/Vol] 0.71 10*3/uL Normal <0.87 [facility] Comment on above: Order Comment: Speci men Type: BLOOD SPECIMENOrdering Facility: [facility] Address: [address] [place] [address] Performed By: #### 5 7021-8 ####[facility] LABCLIA [id number] [place] [address] Monocytes/100 WBC (Bld) 7.4 % Normal [facility] Comment on above: Order Comment: Speci men Type: BLOOD SPECIMENOrdering Facility: [facility] Address: [address] [place] [address] Performed By: #### 5 7021-8 ####[facility] LABCLIA [id number] [place] [address] Neutrophils (Bld) [#/Vol] 7.93 10*3/uL High 1.45-7.50 [facility] Comment on above: Order Comment: Speci men Type: BLOOD SPECIMENOrdering Facility: [facility] Address: [address] [address] Performed By: #### 5 7021-8 ####[facility] LABCLIA [id number] [place] [address] Neutrophils/100 WBC (Bld) 83.2 % Normal [facility] Comment on above: Order Comment: Speci men Type: BLOOD SPECIMENOrdering Facility: [facility] Address: [address] [address] Performed By: #### 5 7021-8 ####[facility] LABCLIA [id number] [place] [address] Nucleated RBC (Bld) [#/Vol] 10*3/uL Normal <0.01 [facility] Comment on above: Order Comment: Speci men Type: BLOOD SPECIMENOrdering Facility: [facility] Address: [address] [place] [address] Performed By: #### 5 7021-8 ####[facility] LABCLIA [id number] [place] [address] Nucleated RBC/100 WBC (Bld) [Ratio] 0.0 /100 WBC Normal [facility] Comment on above: Order Comment: Speci men Type: BLOOD SPECIMENOrdering Facility: [facility] Address: [address] [place] [address] Performed By: #### 5 7021-8 ####[facility] LABCLIA [id number] [place] [address] Platelet mean volume (Bld) [Entitic vol] 10.1 fL Normal 9.0-12.7 [facility] Comment on above: Order Comment: Speci men Type: BLOOD SPECIMENOrdering Facility: [facility] Address: [address] [place] [address] Performed By: #### 5 7021-8 ####[facility] LABCLIA [id number] [place] [address] Platelets (Bld) [#/Vol] 206 10*3/uL Normal 150-400 [facility] Comment on above: Order Comment: Speci men Type: BLOOD SPECIMENOrdering Facility: [facility] Address: [address] [place] [address] Performed By: #### 5 7021-8 ####[facility] LABIA [id number] [address] [id number] RBC (Bld) [#/Vol] 3.78 10*6/uL Low 4.20-6.00 [facility] Comment on above: Order Comment: Speci men Type: BLOOD SPECIMENOrdering Facility: [facility] Address: [address] [place] [address] Performed By: #### 5 7021-8 ####[facility] LABIA [id number] [address] [id number] WBC (Bld) [#/Vol] 9.54 10*3/uL Normal 3.70-11.00 [facility] Comment on above: Order Comment: Speci men Type: BLOOD SPECIMENOrdering Facility: [facility] Address: [address] [place] [address] Performed By: #### 5 7021-8 ####[facility] LABIA [id number] [place] [address] Basophils (Bld) [#/Vol] 0.04 10*3/uL <0.11 k/uL [facility] Basophils/100 WBC (Bld) 0.4 % [facility] Differential cell count method Nom (Bld) Auto [facility] Eosinophils (Bld) [#/Vol] 0.16 10*3/uL <0.46 k/uL [facility] Eosinophils/100 WBC (Bld) 1.7 % [facility] Erythrocyte distribution width (RBC) [Ratio] 17.1 % High 11.5 - 15.0 % [facility] Hematocrit (Bld) [Volume fraction] 37.7 % Low 39.0 - 51.0 % [facility] Hemoglobin (Bld) [Mass/Vol] 12.2 g/dL Low 13.0 - 17.0 g/dL [facility] Immature granulocytes (Bld) [#/Vol] 0.05 10*3/uL <0.10 k/uL [facility] Immature granulocytes/100 WBC (Bld) 0.5 % [facility] Lymphocytes (Bld) [#/Vol] 0.65 10*3/uL Low 1.00 - 4.00 k/uL [facility] Lymphocytes/100 WBC (Bld) 6.8 % [facility] MCH (RBC) [Entitic mass] 32.3 pg 26.0 - 34.0 pg [facility] MCHC (RBC) [Mass/Vol] 32.4 g/dL 30.5 - 36.0 g/dL [facility] MCV (RBC) [Entitic vol] 99.7 fL 80.0 - 100.0 fL [facility] Monocytes (Bld) [#/Vol] 0.71 10*3/uL <0.87 k/uL [facility] Monocytes/100 WBC (Bld) 7.4 % [facility] Neutrophils (Bld) [#/Vol] 7.93 10*3/uL High 1.45 - 7.50 k/uL [facility] Neutrophils/100 WBC (Bld) 83.2 % [facility] Nucleated RBC (Bld) [#/Vol] <0.01 k/uL [facility] Nucleated RBC/100 WBC (Bld) [Ratio] 0.0 /100 WBC [facility] Platelet mean volume (Bld) [Entitic vol] 10.1 fL 9.0 - 12.7 fL [facility] Platelets (Bld) [#/Vol] 206 10*3/uL 150 - 400 k/uL [facility] RBC (Bld) [#/Vol] 3.78 10*6/uL Low 4.20 - 6.0 0 m/uL [facility] WBC (Bld) [#/Vol] 9.54 10*3/uL 3.70 - 11.00 k/uL [facility] CEA SerPl-mCncon 05-28-2023 Carcinoembryonic Ag [Mass/Vol] 2.2 ng/mL Normal <=2.9 [facility] Comment on above: Order Comment: Speci men Type: BLOOD SPECIMENOrdering Facility: [facility] Address: [address] [address] Result Comment: Carc inoembryonic antigen test is used as an aid in monitoring response to treatment or recurrence in patients with established colorectal, breast, lung, prostatic, pancreatic, and ovarian carcinomas. Clinical correlation is required.The Carcinoembryonic antigen test was performed using the [employer] DXI paramagnetic particle chemiluminescent immunoassay method. Results obtained with different assay methods or kits cannot be used interchangeably. Performed By: #### 2 039-6 ####[facility] LABCLIA [id number] [place] [address] [place] CNOVSPon 05-28-2023 CNOVSP Normal [facility] Comprehensive metabolic 2000 panelon 05-28-2023 Albumin [Mass/Vol] 3.8 g/dL Low 3.9-4.9 [facility] Comment on above: Order Comment: Speci men Type: BLOOD SPECIMENOrdering Facility: [facility] Address: [address] [address] Performed By: #### 2 4323-8 ####[facility] LABCLIA [id number] [place] [address] ALP [Catalytic activity/Vol] 93 U/L Normal 38-113 [facility] Comment on above: Order Comment: Speci men Type: BLOOD SPECIMENOrdering Facility: [facility] Address: [address] [address] Performed By: #### 2 4323-8 ####[facility] LABCLIA [id number] [place] [address] ALT [Catalytic activity/Vol] 9 U/L Low 10-54 [facility] Comment on above: Order Comment: Speci men Type: BLOOD SPECIMENOrdering Facility: [facility] Address: [address] [address] Performed By: #### 2 4323-8 ####[facility] LABCLIA [id number] [place] [address] Anion gap [Moles/Vol] 9 mmol/L Normal 9-18 [facility] Comment on above: Order Comment: Speci men Type: BLOOD SPECIMENOrdering Facility: [facility] Address: [address] [place] [address] Performed By: #### 2 4323-8 ####[facility] LABCLIA [id number] [place] [address] AST [Catalytic activity/Vol] 15 U/L Normal 14-40 [facility] Comment on above: Order Comment: Speci men Type: BLOOD SPECIMENOrdering Facility: [facility] Address: [address] [place] [address] Performed By: #### 2 4323-8 ####[facility] LABCLIA [id number] [place] [address] Bilirubin [Mass/Vol] 0.4 mg/dL Normal 0.2-1.3 [facility] Comment on above: Order Comment: Speci men Type: BLOOD SPECIMENOrdering Facility: [facility] Address: [address] [place] [address] Performed By: #### 2 4323-8 ####[facility] LABCLIA [id number] [place] [address] Calcium [Mass/Vol] 9.3 mg/dL Normal 8.5-10.2 [facility] Comment on above: Order Comment: Speci men Type: BLOOD SPECIMENOrdering Facility: [facility] Address: [address] [place] [address] Performed By: #### 2 4323-8 ####[facility] LABCLIA [id number] [place] [address] Chloride [Moles/Vol] 105 mmol/L Normal 97-105 [facility] Comment on above: Order Comment: Speci men Type: BLOOD SPECIMENOrdering Facility: [facility] Address: [address] [place] [address] Performed By: #### 2 4323-8 ####[facility] LABCLIA [id number] [place] [address] CO2 [Moles/Vol] 27 mmol/L Normal 22-30 [facility] Comment on above: Order Comment: Speci men Type: BLOOD SPECIMENOrdering Facility: [facility] Address: [address] [place] [address] Performed By: #### 2 4323-8 ####[facility] LABCLIA [id number] [place] [address] Creatinine [Mass/Vol] 1.12 mg/dL Normal 0.73-1.22 [facility] Comment on above: Order Comment: Speci men Type: BLOOD SPECIMENOrdering Facility: [facility] Address: [address] [place] [address] Performed By: #### 2 4323-8 ####[facility] LABCLIA [id number] [place] [address] ESTIMATED GLOMERULAR FILTRATION RATE 71 mL/min/1.73m??? Normal >=60 [facility] Comment on above: Order Comment: Speci men Type: BLOOD SPECIMENOrdering Facility: [facility] Address: [address] [place] [address] Result Comment: Rebekah mated Glomerular Filtration Rate (eGFR) is calculated using the 2020 CKD-EPI creatinine equation. This equation utilizes serum creatinine, sex, and age as parameters. The creatinine assay has traceable calibration to isotope dilution-mass spectrometry. Refer to KDIGO guidelines for clinical interpretation. In patients with unstable renal function, e.g. those with acute kidney injury, the eGFR may not accurately reflect actual GFR. Performed By: #### 2 4323-8 ####[facility] LABCLIA [id number] [place] [address] Glucose [Mass/Vol] 86 mg/dL Normal 74-99 [facility] Comment on above: Order Comment: Speci men Type: BLOOD SPECIMENOrdering Facility: [facility] Address: [address] [address] Result Comment: The [place] Diabetes [employer] (ADA) provides guidance for cutoff values for fasting glucose and random glucose. The ADA defines fasting as no caloric intake for at least 8 hours. Fasting plasma glucose results between 100 to 125 mg/dL indicate increased risk for diabetes (prediabetes).Fasting plasma glucose results greater than or equal to 126 mg/dL meet the criteria for diagnosis of diabetes. In the absence of unequivocal hyperglycemia, results should be confirmed by repeat testing. In a patient with classic symptoms of hyperglycemia or hyperglycemic crisis, random plasma glucose results greater than or equal to 200 mg/dL meet the criteria for diagnosis of diabetes.Reference: Standards of Medical Care in Diabetes 2016, [place] [employer]. Diabetes Care. 2016.39(Suppl 1). Performed By: #### 2 4323-8 ####[facility] LABCLIA [id number] [place] [address] Potassium [Moles/Vol] 3.8 mmol/L Normal 3.7-5.1 [facility] Comment on above: Order Comment: Speci men Type: BLOOD SPECIMENOrdering Facility: [facility] Address: [address] [address] Performed By: #### 2 4323-8 ####[facility] LABCLIA [id number] [place] [address] Protein [Mass/Vol] 6.1 g/dL Low 6.3-8.0 [facility] Comment on above: Order Comment: Speci men Type: BLOOD SPECIMENOrdering Facility: [facility] Address: [address] [address] Performed By: #### 2 4323-8 ####[facility] LABCLIA [id number] [place] [address] Sodium [Moles/Vol] 141 mmol/L Normal 136-144 [facility] Comment on above: Order Comment: Speci men Type: BLOOD SPECIMENOrdering Facility: [facility] Address: [address] [address] Performed By: #### 2 4323-8 ####[facility] LABCLIA [id number] [place] [address] Urea nitrogen [Mass/Vol] 19 mg/dL Normal 9-24 [facility] Comment on above: Order Comment: Speci men Type: BLOOD SPECIMENOrdering Facility: [facility] Address: [address] [place] [id number] Performed By: #### 2 4323-8 ####[facility] LABCLIA [id number] [place] [address] Albumin [Mass/Vol] 3.8 g/dL Low 3.9 - 4.9 g/dL [facility] ALP [Catalytic activity/Vol] 93 U/L 38 - 113 U/L [facility] ALT [Catalytic activity/Vol] 9 U/L Low 10 - 54 U/L [facility] Anion gap [Moles/Vol] 9 mmol/L 9 - 18 mmol/L [facility] AST [Catalytic activity/Vol] 15 U/L 14 - 40 U/L [facility] Bilirubin [Mass/Vol] 0.4 mg/dL 0.2 - 1 .3 mg/dL [facility] Calcium [Mass/Vol] 9.3 mg/dL 8.5 - 10. 2 mg/dL [facility] Chloride [Moles/Vol] 105 mmol/L 97 - 10 5 mmol/L [facility] CO2 [Moles/Vol] 27 mmol/L 22 - 30 mmol/L [facility] Creatinine [Mass/Vol] 1.12 mg/dL 0.73 - 1.22 mg/dL [facility] Estimated Glomerular Filtration Rate 71 mL/min/1.73m >=60 mL/min/1.73 m [facility] Glucose [Mass/Vol] 86 mg/dL 74 - 99 mg/dL [facility] Potassium [Moles/Vol] 3.8 mmol/L 3.7 - 5.1 mmol/L [facility] Protein [Mass/Vol] 6.1 g/dL Low 6.3 - 8.0 g/dL [facility] Sodium [Moles/Vol] 141 mmol/L 136 - 144 mmol/L [facility] Urea nitrogen [Mass/Vol] 19 mg/dL 9 - 24 mg/dL [facility] PT - Assessmentson PT - Assessments [id number]#1.00 CD:127 Normal [facility] PT - Consentson 05-24-2023 PT - Consents [id number]#1.00 CD:127 Normal [facility] PT - Home Exercise Programon 05-24-2023 PT - Home Exercise Program [id number]#1.00 CD:127 Normal [facility] PT - Orderson 05-24-2023 PT - Orders [id number]#1.00 CD:127 Normal [facility] MR cervical spine wo/w conon 05-23-2023 MR cervical spine wo/w con [facility] [place] [address] MRI Report Signed Patient: Mervat Damon MR#: [id number] : 1950 Acct:[id number] Age/Sex: 72 / M ADM Date: 05/22/23 Loc: Room: Type: [facility] Attending Dr: Valencia ONEAL Copies to: JM Godoy Ordering Provider: JM Godoy Date of Service: 05/22/23 MR/MR cervical spine wo/w con: M54.12 MR cervical spine wo/w con 05/22/2023 9:21 PM SIGNS AND SYMPTOMS: Neck pain, stiffness, history of colorectal cancer PROTOCOL: Multiplanar multisequence MR images of the cervical spine were obtained with and without IV contrast CONTRAST: 20 mL of intravenous ProHance COMPARISON: 03/18/2023 and 10/20/2015 FINDINGS: The bones of the cervical spine are in anatomic alignment. There is preservation of vertebral body heights. There is intervertebral fusion at C4-C5 with anterior fusion from C5 through C7. This is unchanged. The marrow signal is within normal limits. The cord is normal in signal. No epidural or paraspinous fluid collection is appreciated. The visualized paraspinous soft tissues are within normal limits. The prevertebral soft tissues are within normal limits. At C2-C3: There is uncovertebral joint spurring and uncovertebral joint spurring. There is mild to moderate left neural foraminal narrowing without spinal canal narrowing. At C3-C4: There is a broad-based disc bulge with facet and negative joint degenerative change contributing to moderate bilateral neural foraminal narrowing with mild spinal canal narrowing. These changes are slightly worse when compared to the previous MRI. At C4-C5: There is intervertebral fusion with uncovertebral joint spurring and facet hypertrophy. There is moderate severe left and mild right neural foraminal narrowing. This mild spinal canal narrowing. There has been improvement in spinal canal stenosis since the previous MRI. At C5-C6: There is uncovertebral joint spurring and facet hypertrophy with moderate bilateral neural foraminal narrowing. No significant spinal canal narrowing. At C6-C7: There is a broad-based disc bulge with facet and uncovertebral joint degenerative change contributing to severe bilateral neural foraminal narrowing with mild spinal canal narrowing. At C7-T1: Facet hypertrophy is present bilaterally contributing to moderate bilateral neural foraminal narrowing. There is no significant spinal canal narrowing. MR/MR cervical spine wo/w con IMPRESSION: No cord compression or cord signal abnormality. No abnormal postcontrast enhancement. Significant multilevel disc, facet, and uncovertebral joint degenerative change contributing to varying degrees of spinal canal and neural foraminal narrowing, as detailed above. Impression dictated by: Brett Crowley M.D.05/23/2023 12:40 PM Dictation Location: [address] [address] Transcribed By: [facility] 05/23/23 1240 Dictated By: Brett Crowley II, MD 05/23/23 1228 Signed By: 05/23/23 1240 [facility] MR cervical spine wo/w con [facility] [employer] Other MR cervical spine wo/w con [facility] [employer] Other MR cervical spine wo/w con [address] [place] [address] [employer] Other MR cervical spine wo/w con [address] [employer] Other MR cervical spine wo/w con MRI Report [employer] Other MR cervical spine wo/w con Signed [employer] Other MR cervical spine wo/w con Patient: Mervat Damon MR#: [id number] [employer] Other MR cervical spine wo/w con 4313 [employer] Other MR cervical spine wo/w con : 1950 Acct:[id number] [employer] Other MR cervical spine wo/w con Age/Sex: 72 / M ADM Date: 05/22/23 [employer] Other MR cervical spine wo/w con Loc: MR Room: Type: [facility] [employer] Other MR cervical spine wo/w con Attending Dr: Valencia ONEAL [employer] Other MR cervical spine wo/w con Copies to: JM Godoy [employer] Other MR cervical spine wo/w con Ordering Provider: JM Godoy [employer] Other MR cervical spine wo/w con Date of Service: 05/22/23 [employer] Other MR cervical spine wo/w con MR/MR cervical spine wo/w con: M54.12 [employer] Other MR cervical spine wo/w con MR cervical spine wo/w con 05/22/2023 9:21 PM [employer] Other MR cervical spine wo/w con SIGNS AND SYMPTOMS: Neck pain, stiffness, history of colorectal cancer [employer] Other MR cervical spine wo/w con PROTOCOL: Multiplanar multisequence MR images of the cervical spine were obtained with and without [employer] Other MR cervical spine wo/w con IV contrast [employer] Other MR cervical spine wo/w con CONTRAST: 20 mL of intravenous ProHance [employer] Other MR cervical spine wo/w con COMPARISON: 03/18/2023 and 10/20/2015 [employer] Other MR cervical spine wo/w con FINDINGS: The bones of the cervical spine are in anatomic alignment. There is preservation of [employer] Other MR cervical spine wo/w con vertebral body heights. There is intervertebral fusion at C4-C5 with anterior fusion from C5 through [employer] Other MR cervical spine wo/w con C7. This is unchanged. The marrow signal is within normal limits. The cord is normal in signal. No [employer] Other MR cervical spine wo/w con epidural or paraspinous fluid collection is appreciated. The visualized paraspinous soft tissues are [employer] Other MR cervical spine wo/w con within normal limits. The prevertebral soft tissues are within normal limits. [employer] Other MR cervical spine wo/w con At C2-C3: There is uncovertebral joint spurring and uncovertebral joint spurring. There is mild to [employer] Other MR cervical spine wo/w con moderate left neural foraminal narrowing without spinal canal narrowing. [employer] Other MR cervical spine wo/w con At C3-C4: There is a broad-based disc bulge with facet and negative joint degenerative change [employer] Other MR cervical spine wo/w con contributing to moderate bilateral neural foraminal narrowing with mild spinal canal narrowing. [employer] Other MR cervical spine wo/w con These changes are slightly worse when compared to the previous MRI. [employer] Other MR cervical spine wo/w con At C4-C5: There is intervertebral fusion with uncovertebral joint spurring and facet hypertrophy. [employer] Other MR cervical spine wo/w con There is moderate severe left and mild right neural foraminal narrowing. This mild spinal canal [employer] Other MR cervical spine wo/w con narrowing. There has been improvement in spinal canal stenosis since the previous MRI. [employer] Other MR cervical spine wo/w con At C5-C6: There is uncovertebral joint spurring and facet hypertrophy with moderate bilateral neural [employer] Other MR cervical spine wo/w con foraminal narrowing. No significant spinal canal narrowing. [employer] Other MR cervical spine wo/w con At C6-C7: There is a broad-based disc bulge with facet and uncovertebral joint degenerative change [employer] Other MR cervical spine wo/w con contributing to severe bilateral neural foraminal narrowing with mild spinal canal narrowing. [employer] Other MR cervical spine wo/w con At C7-T1: Facet hypertrophy is present bilaterally contributing to moderate bilateral neural [employer] Other MR cervical spine wo/w con foraminal narrowing. There is no significant spinal canal narrowing. [employer] Other MR cervical spine wo/w con MR/MR cervical spine wo/w con [employer] Other MR cervical spine wo/w con IMPRESSION: [employer] Other MR cervical spine wo/w con No cord compression or cord signal abnormality. [employer] Other MR cervical spine wo/w con No abnormal postcontrast enhancement. [employer] Other MR cervical spine wo/w con Significant multilevel disc, facet, and uncovertebral joint degenerative change contributing to [employer] Other MR cervical spine wo/w con varying degrees of spinal canal and neural foraminal narrowing, as detailed above. [employer] Other MR cervical spine wo/w con Impression dictated by: Brett Crowley M.D.05/23/2023 12:40 PM [employer] Other MR cervical spine wo/w con Dictation Location: [facility] [employer] Other MR cervical spine wo/w con Transcribed By: PWS 05/23/23 1240 [employer] Other MR cervical spine wo/w con Dictated By: Brett Crowley II, MD 05/23/23 1228 [employer] Other MR cervical spine wo/w con Signed By: [employer] Other MR cervical spine wo/w con 05/23/23 1240 [employer] Other PT - Orderson 05-23-2023 PT - Orders [id number]#1.00C D:127 Normal [facility] Creatinine (Bld) [Mass/Vol]O rdered By: Valencia Torres on 05-22-2023 Creatinine [Mass/Vol] 1.3 mg/dL 0.6-1.3 [facility] Comment on above: ER/ESD physician is notified/shown all ISTAT results.Critical values may be confirmed by laboratory testing ifdeemed necessary by ER attending doctor. XR Spine Lumbosacral Minimum 4 Viewson 05-21-2023 XR Spine Lumbosacral Minimum 4 Views Exam Date/Time: 05/17/2023 13:39 EDT Reason for Exam: M47.816 Report IMPRESSION: MULTILEVEL DEGENERATIVE CHANGES. CLINICAL HISTORY: M47.816. Low back pain. COMMENT: 6 views. There is prominent narrowing of the L1-L2 and L2-L3 interspaces, moderate narrowing of the L3-L4 interspace, and mild narrowing of the L4-L5 interspace. There are marginal hypertrophic spurs of the lumbar vertebral bodies. There are hypertrophic arthritic changes of lumbar facet joints. The vertebral bodies are maintained in height. No fracture is noted. There is grade 1 retrolisthesis at L1-L2, L2-L3, and L3-L4 and grade 1 anterolisthesis at L4-L5. Of incidental note, there are small bilateral renal calculi. Ordering Provider: Bryon Cruz FINAL REPORT Dictated: 05/21/2023 11:45 am Maged Stringer M.D. Signed (Electronic Signature): 05/21/2023 11:45 am Signed by: Maged Stringer M.D. Transcribed by: VEENA Technologist: ABRAM, Technical Comments Radiation Dose: Ka,r in mGy = na DAP = na Normal [facility] Consent for Treatmenton 04-21 Consent for Treatment [id number]#1.00C D:127 Normal [facility] Physician Orderon 05-17-2023 Physician Order [id number]#1.00 CD:127 Normal [facility] Consent for Procedure/Surger yon 05-15-2023 Consent for Procedure/Surgery [id number]#1.00C D:127 Normal [facility] Basic metabolic 2000 panelon 05-14-2023 Anion gap [Moles/Vol] 7 mmol/L Low 9-18 [facility] Comment on above: Order Comment: Speci men Type: BLOOD SPECIMENOrdering Facility: [facility] Address: [address] [place] [address] Performed By: #### 2 4321-2 ####[facility] LABCLIA [id number] [place] [address] Calcium [Mass/Vol] 9.3 mg/dL Normal 8.5-10.2 [facility] Comment on above: Order Comment: Speci men Type: BLOOD SPECIMENOrdering Facility: [facility] Address: [address] [place] [address] Performed By: #### 2 4321-2 ####[facility] LABCLIA [id number] [place] [address] Chloride [Moles/Vol] 105 mmol/L Normal 97-105 [facility] Comment on above: Order Comment: Speci men Type: BLOOD SPECIMENOrdering Facility: [facility] Address: [address] [place] [address] Performed By: #### 2 4321-2 ####[facility] LABCLIA [id number] [place] [address] CO2 [Moles/Vol] 28 mmol/L Normal 22-30 [facility] Comment on above: Order Comment: Speci men Type: BLOOD SPECIMENOrdering Facility: [facility] Address: [address] [place] [address] Performed By: #### 2 4321-2 ####[facility] LABCLIA [id number] [place] [address] Creatinine [Mass/Vol] 1.08 mg/dL Normal 0.73-1.22 [facility] Comment on above: Order Comment: Speci men Type: BLOOD SPECIMENOrdering Facility: [facility] Address: [address] [place] [address] Performed By: #### 2 4321-2 ####[facility] LABCLIA [id number] [place] [address] ESTIMATED GLOMERULAR FILTRATION RATE 74 mL/min/1.73m??? Normal >=60 [facility] Comment on above: Order Comment: Speci men Type: BLOOD SPECIMENOrdering Facility: [facility] Address: [address] [place] [address] Result Comment: Rebekah mated Glomerular Filtration Rate (eGFR) is calculated using the 2020 CKD-EPI creatinine equation. This equation utilizes serum creatinine, sex, and age as parameters. The creatinine assay has traceable calibration to isotope dilution-mass spectrometry. Refer to KDIGO guidelines for clinical interpretation. In patients with unstable renal function, e.g. those with acute kidney injury, the eGFR may not accurately reflect actual GFR. Performed By: #### 2 4321-2 ####[facility] LABCLIA [id number] [place] [address] Glucose [Mass/Vol] 106 mg/dL High 74-99 [facility] Comment on above: Order Comment: Nazario brooks Type: BLOOD SPECIMENOrdering Facility: [facility] Address: [address] [place], [place] [id number] Result Comment: The [place] Diabetes [employer] (ADA) provides guidance for cutoff values for fasting glucose and random glucose. The ADA defines fasting as no caloric intake for at least 8 hours. Fasting plasma glucose results between 100 to 125 mg/dL indicate increased risk for diabetes (prediabetes).Fasting plasma glucose results greater than or equal to 126 mg/dL meet the criteria for diagnosis of diabetes. In the absence of unequivocal hyperglycemia, results should be confirmed by repeat testing. In a patient with classic symptoms of hyperglycemia or hyperglycemic crisis, random plasma glucose results greater than or equal to 200 mg/dL meet the criteria for diagnosis of diabetes.Reference: Standards of Medical Care in Diabetes 2016, [place] [employer]. Diabetes Care. 2016.39(Suppl 1). Performed By: #### 2 4321-2 ####[facility] LABCLIA [id number] [place] [address] Potassium [Moles/Vol] 3.8 mmol/L Normal 3.7-5.1 [facility] Comment on above: Order Comment: Nazario brooks Type: BLOOD SPECIMENOrdering Facility: [facility] Address: [address] [place] [address] Performed By: #### 2 4321-2 ####[facility] LABCLIA [id number] [place] [address] Sodium [Moles/Vol] 140 mmol/L Normal 136-144 [facility] Comment on above: Order Comment: Nazario brooks Type: BLOOD SPECIMENOrdering Facility: [facility] Address: [address] [place], [place] [address] Performed By: #### 2 4321-2 ####[facility] LABCLIA [id number] [place] [address] Urea nitrogen [Mass/Vol] 22 mg/dL Normal 9-24 [facility] Comment on above: Order Comment: Speci men Type: BLOOD SPECIMENOrdering Facility: [facility] Address: [place] [address] Performed By: #### 2 4321-2 ####[facility] LABCLIA [id number] [place] [address] Anion gap [Moles/Vol] 7 mmol/L Low 9 - 18 mmol/L [facility] Calcium [Mass/Vol] 9.3 mg/dL 8.5 - 10. 2 mg/dL [facility] Chloride [Moles/Vol] 105 mmol/L 97 - 10 5 mmol/L [facility] CO2 [Moles/Vol] 28 mmol/L 22 - 30 mmol/L [facility] Creatinine [Mass/Vol] 1.08 mg/dL 0.73 - 1.22 mg/dL [facility] Estimated Glomerular Filtration Rate 74 mL/min/1.73m >=60 mL/min/1.73 m [facility] [facility] [place] Glucose [Mass/Vol] 106 mg/dL High 74 - 99 mg/dL [facility] [place] Potassium [Moles/Vol] 3.8 mmol/L 3.7 - 5.1 mmol/L [facility] [place] Sodium [Moles/Vol] 140 mmol/L 136 - 144 mmol/L [facility] [place] Urea nitrogen [Mass/Vol] 22 mg/dL 9 - 24 mg/dL [facility] [place] CNPNon 05-14-2023 CNPN Normal [facility] Consent for Treatmenton 04-20 Consent for Treatment [id number]#1.00 CD:127 Normal [facility] Consultation Noteon 05-07-20 23 Consultation Note Patient: MERVAT DAMON Age: 72 years Sex: Male : 1950 Associated Diagnoses: None Author: Bryon Cruz MD Basic Information Accompanied by: No one. Source of history: Self. Referral source: Lorenzo OLSON DO History limitation: None. Chief Complaint 05/07/2023 13:15 EDT neck and lower back pain History of Present Illness 72-year-old gentleman with history of severe neck and low back pain over the past 2 months. No inciting injury or trauma. He does have a history of 2 cervical spine surgeries. When the neck pain first occurred he went to see Dr. Marcum who did not recommend further surgery apparently. The neck pain has subsided with the use of some hydrocodone for short period of time. The low back pain occurs on the left-hand side. The patient had what sounds like a trigger point injection in the office by his primary care physician and is feeling much better. He is current pain rates as a 1/10 on the visual analog scale. MEHRAN is 28. Has not had physical therapy. Patient did undergo an x-ray of the neck but not of the low back. Does have a history of rectal cancer as well as rheumatoid arthritis. Denies red flag symptoms. Review of Systems Complete review of systems obtained and reviewed. Form scanned. Pertinent findings are noted in the HPI. Health Status Allergies: Allergic Reactions (All) No Known Allergies Canceled/Inactive Reactions (All) Severity Not Documented Penicillin- Diarrhea. Current medications: Home Medications (14) Active carvedilol 6.25 mg Tab 6.25 mg = 1 tab(s), Oral, BID Cialis 20 mg Tab See Instructions, PRN cyclobenzaprine 10 mg Tab 10 mg = 1 tab(s), PRN, Oral, TID finasteride 5 mg Tab 5 mg = 1 tab(s), Oral, Daily Flomax 0.4 mg Cap 0.4 mg = 1 cap(s), Oral, BID Glucosamine Chondroitin 1500mg/1200mg, Oral, Daily hydrochlorothiazide 12.5 mg Cap 12.5 mg = 1 cap(s), Oral, Daily hydrocortisone Top 2.5% Crm Coggon 325 mg-5 mg oral tablet 1 tab(s), PRN, Oral, q6hr ondansetron 4 mg Tab 8 mg = 2 tab(s), PRN, Oral, q8hr predniSONE 5 mg Tab 5 mg = 1 tab(s), Oral, Daily prochlorperazine 10 mg Tab valsartan 80 mg Tab 80 mg = 1 tab(s), Oral, Daily Vitamin C 1,000 mg, Oral, Daily Problem list: All Problems BMI 31.0-31.9,adult / SNOMED CT 838067027 / Confirmed BPH with urinary obstruction / SNOMED CT 7718819561 / Confirmed Bulging of cervical intervertebral disc / SNOMED CT 6501647023 / Confirmed Cervical spinal stenosis / SNOMED CT 179603394 / Confirmed Erectile dysfunction / SNOMED CT 6446881224 / Confirmed Hammertoe / SNOMED CT 702166696 / Confirmed Inguinal hernia, right / SNOMED CT 542921361 / Confirmed Neck pain without injury / SNOMED CT 363367606 / Confirmed Non-ischemic cardiomyopathy / SNOMED CT 896991709 / Confirmed RA - Rheumatoid arthritis / SNOMED CT 6219080182 / Confirmed Rectal cancer / SNOMED CT 189211580 / Confirmed Tobacco non-user / SNOMED CT 372298426 / Confirmed Histories Past Medical History: Active RA - Rheumatoid arthritis (9574855378) Cervical spinal stenosis (555699218) Family History: Primary malignant neoplasm of bladder Father Cancer...... Mother Comments: 07/07/2018 12:11 Paulette Fraire RN Pancreatic Sister Comments: 07/07/2018 12:11 Paulette Fraire RN liver Procedure history: Sigmoidoscopy (22853666) on 08/20/2022 at 71 Years. Cataract extraction and insertion of intraocular lens (3279311916) on 02/24/2019 at 68 Years. Comments: 02/24/2019 17:10 Kathie Granda RN left Right eye cataract extraction and insertion of intraocular lens (3011626145) on 02/12/2019 at 68 Years. Laparoscopic repair of inguinal hernia (74741974) on 01/01/2018 at 67 Years. Comments: 01/01/2018 18:31 YARI Alexandra RN, Vanessa Dahl ROBOTIC ASSISTED RIGHT INGUINAL HERNIA REPAIR WITH MESH LT STENT ([id number]) on 05/23/2016 at 65 Years. LT ESWL ([id number]) on 03/22/2016 at 65 Years. Comments: 04/04/2019 8:10 Jennie Palomino MA 01/05/2016, 03/08/2016 RT ESWL ([id number]) on 12/22/2015 at 65 Years. Comments: 04/04/2019 8:09 Jennie Palomino MA 12/15/2015 Cystoscopy ([id number]) on 09/28/2015 at 64 Years. Cervical spinal fusion x2 (754381029). Colonoscopy (294991415). Hammer toe operation (964020). Cervical spinal fusion (059252857). Hemorrhoidectomy (91325059). Social History Social & Psychosocial Habits Alcohol 12/12/2015 Risk Assessment: Denies Alcohol Use 08/29/2020 Type: Beer, Wine Has alcohol use interfered with work or home life? No Do you ever drink more than intended? No Has anyone been hurt or at risk by your drinking? 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 [facility] Comment on above: Result Comment: Elec tronically Signed By: Anthony ARIRNGTON, Bryon Matos\.br\Date and Time Signed: 05/07/23 14:20 EDT HIPAA Forms Officeon 023 HIPAA Forms Office [id number]#1.00 CD:127 [facility] Legal Correspondence Officeo n 05-07-2023 Legal Correspondence Office [id number]#1.00 CD:127 [facility] Legal Correspondence Office [id number]#1.00 CD:127 [facility] Office/Clinic Note-Physician on 05-07-2023 Office/Clinic Note-Physician [id number]#1.00 CD:127 [facility] Orders Officeon 05-07-2023 Orders Office [id number]#1.00 CD:127 [facility] Patient Correspondenceon Patient Correspondence [id number]#1.00 CD:127 Normal [facility] Patient Correspondence [id number]#1.00 CD:127 Normal [facility] Patient Correspondence [id number]#1.00 CD:127 Normal [facility] Patient Correspondence [id number]#1.00 CD:127 Normal [facility] Patient Correspondence [id number]#1.00 CD:127 Normal [facility] Patient Correspondence [id number]#1.00 CD:127 Normal [facility] Patient History Officeon Patient History Office [id number]#1.00 CD:127 Normal [facility] Physician Orderon 05-07-2023 Physician Order [id number]#1.00 CD:127 Normal [facility] CNPNon 05-03-2023 CNPN Normal [facility] Outside Labson 05-01-2023 Outside Labs [id number]#1.00 CD:127 Normal [facility] Progress Note-Nurseon 2022 Progress Note-Nurse [id number] [id number]#1.00 CD:127 Normal [facility] Consent for Treatmenton 04-20 Consent for Treatment [id number]#1.00C D:127 Normal [facility] Heart and Vascular Office/Cl inic Noteon 04-29-2023 Heart and Vascular Office/Clinic Note Chief Complaint 3 month follow up History of Present Illness Mervat Damon is a 72-year-old male patient of Dr. Kong with past medical history positive for nonischemic cardiomyopathy confirmed by cath in December 2018, most recent EF improved to 50 to 55% on guideline directed medical therapy. He has hypertension, and a remote PE has since been taken off his chronic anticoagulation. He has recent history of rectal cancer and has completed chemo and radiation through Dr. Anderson, and reports that he is currently in remission. He is here today for 3-month follow-up. He denies any new cardiac complaints. He has occasional dizziness upon standing that resolves quickly. He denies any near-syncope/syncope. He denies chest pain, palpitations, shortness of breath at rest, dyspnea exertion, edema, orthopnea, PND. Blood pressure is normotensive in the office and has been trending as such. He reports compliance with medication. Review of Systems PHQ Score Initial Depression Screen Score: 0 Constitutional: no fever, no chills, no weakness, no fatigue Respiratory: no shortness of breath, no cough, no orthopnea, no wheezing Cardiovascular: no chest pain, no palpitations, no edema Neuro:no dizziness no light headed no syncope Additional ROS info: Except as noted in the above Review of Systems and in the History of Present Illness all other systems have been reviewed and are negative or noncontributory. Physical Exam Vitals & Measurements HR: 61(Peripheral) BP: 116/73 SpO2: 95% HT: 74 in HT: 188 cm WT: 106.8 kg WT: 234.96 lb BMI: 30.22 General: alert, no acute distress Neck: Supple, noJVD nocarotid bruit Cardiovascular: regular rate and rhythm, no murmur normal peripheral perfusion Respiratory: Lungs CTA, respirations non labored Extremities:no edema Neurological: oriented x 4, LOC appropriate for age, sensation equal & normal bilaterally, speech normal Skin: Warm, dry, intact- no rash or concerning lesions Procedure [facility]- 01/02/19 CONCLUSIONS: 1. Essentially normal coronary arteriograms and a codominant anatomy. 2. A nonischemic cardiomyopathy, likely hypertensive related. [1] [1] Cardiac Diagnostics (01/10/2023 15:02 EDT Echo Transthoracic Complete) Interpretation Summary Normal LV size. Low normal LV systolic function, EF 50-55%. Normal RV. No significant valve disease. Normal estimated PA pressure. [2] Assessment/Plan 1. Non-ischemic cardiomyopathy (I42.8: Other cardiomyopathies) Patient with history of nonischemic cardiomyopathy confirmed by cath in December 2018. Most recent echocardiogram with low normal LV function EF of 50 to 55%. He remains on carvedilol 6.25 mg twice daily, valsartan 80 mg daily, and spironolactone 25 mg daily. No need for further adjustment to GDMT at this time. Appears to be well compensated. 2. PVC (premature ventricular contraction) (I49.3: Ventricular premature depolarization) Stable on carvedilol, most recent echo with improved EF. 3. BMI 30.0-30.9,adult (Z68.30: Body mass index [BMI] 30.0-30.9, adult) The standard range for ages 18 and older is >=18.5 and < 25 kg/m2. Your BMI today was above this range, this falls in the overweight to obese category and there are medical benefits to weight loss. We can offer counselling, referral, and/or medical support in addressing this problem. Your BMI and weight management will be followed at subsequent visits. Orders: carvedilol, 6.25 mg = 1 tab(s), Oral, BID, # 180 tab(s), Refills(s) 3, Pharmacy: [facility] #[id number], 188, cm, 04/29/23 8:41:00 EDT, Height/Length Dosing, 106.8, kg, 04/29/23 8:41:00 EDT, Weight Dosing hydrochlorothiazide, 12.5 mg = 1 cap(s), Oral, Daily, # 90 cap(s), Refills(s) 3, Pharmacy: [facility] #[id number], 188, cm, 04/29/23 8:41:00 EDT, Height/Length Dosing, 106.8, kg, 04/29/23 8:41:00 EDT, Weight Dosing valsartan, 80 mg = 1 tab(s), Oral, Daily, # 90 tab(s), Refills(s) 3, Pharmacy: [facility] #[id number], 188, cm, 04/29/23 8:41:00 EDT, Height/Length Dosing, 106.8, kg, 04/29/23 8:41:00 EDT, Weight Dosing Follow-up With When Contact Information Dilan ARRINGTON, Santiago Medina Within 6 months Additional Instructions: Call for sooner apt with new/worsening symptoms Patient Education Heart-Healthy Eating Plan, [id number] Problem List/Past Medical History Ongoing BMI 31.0-31.9,adult BPH with urinary obstruction Cervical spinal stenosis Erectile dysfunction Neck pain without injury Non-ischemic cardiomyopathy RA - Rheumatoid arthritis Rectal cancer Tobacco non-user Historical No qualifying data Procedure/Surgical History Sigmoidoscopy (08/20/2022), Cataract extraction and insertion of intraocular lens (02/24/2019), Cataract extraction and insertion of intraocular lens (02/12/2019), Laparoscopic repair of inguinal hernia (01/01/2018), Cystoscopy (05/23/2016), ESWL - Extracorporeal shockwave lithotripsy for renal calculus (03/22/2016), ESWL - Extracorporeal shockwave lithotripsy for renal calcu (more content not included)... Normal [facility] Comment on above: Result Comment: Elec tronically Signed By: Cyndee SANCHEZ CNP\.br\Date and Time Signed: 04/29/23 09:36 EDT Patient Education - Texton 0 04-29-2023 Patient Education - Text Nutrition Heart-Healthy Eating Plan Heart-healthy meal planning includes: ? Eating less unhealthy fats. ? Eating more healthy fats. ? Making other changes in your diet. Talk with your doctor or a diet specialist (dietitian) to create an eating plan that is right for you. What is my plan? Your doctor may recommend an eating plan that includes: ? Total fat: % or less of total calories a day. ? Saturated fat: % or less of total calories a day. ? Cholesterol: less than mg a day. What are tips for following this plan? Cooking Avoid frying your food. Try to bake, boil, grill, or broil it instead. You can also reduce fat by: ? Removing the skin from poultry. ? Removing all visible fats from meats. ? Steaming vegetables in water or broth. Meal planning ? At meals, divide your plate into four equal parts: ? Fill one-half of your plate with vegetables and green salads. ? Fill one-fourth of your plate with whole grains. ? Fill one-fourth of your plate with lean protein foods. ? Eat 4?5 servings of vegetables per day. A serving of vegetables is: ? 1 cup of raw or cooked vegetables. ? 2 cups of raw leafy greens. ? Eat 4?5 servings of fruit per day. A serving of fruit is: ? 1 medium whole fruit. ? ? cup of dried fruit. ? ? cup of fresh, frozen, or canned fruit. ? ? cup of 100% fruit juice. ? Eat more foods that have soluble fiber. These are apples, broccoli, carrots, beans, peas, and barley. Try to get 20?30 g of fiber per day. ? Eat 4?5 servings of nuts, legumes, and seeds per week: ? 1 serving of dried beans or legumes equals ? cup after being cooked. ? 1 serving of nuts is ? cup. ? 1 serving of seeds equals 1 tablespoon. General information ? Eat more home-cooked food. Eat less restaurant, buffet, and fast food. ? Limit or avoid alcohol. ? Limit foods that are high in starch and sugar. ? Avoid fried foods. ? Lose weight if you are overweight. ? Keep track of how much salt (sodium) you eat. This is important if you have high blood pressure. Ask your doctor to tell you more about this. ? Try to add vegetarian meals each week. Fats ? Choose healthy fats. These include olive oil and canola oil, flaxseeds, walnuts, almonds, and seeds. ? Eat more omega-3 fats. These include salmon, mackerel, sardines, tuna, flaxseed oil, and ground flaxseeds. Try to eat fish at least 2 times each week. ? Check food labels. Avoid foods with trans fats or high amounts of saturated fat. ? Limit saturated fats. ? These are often found in animal products, such as meats, butter, and cream. ? These are also found in plant foods, such as palm oil, palm kernel oil, and coconut oil. ? Avoid foods with partially hydrogenated oils in them. These have trans fats. Examples are stick margarine, some tub margarines, cookies, crackers, and other baked goods. What foods can I eat? Fruits All fresh, canned (in natural juice), or frozen fruits. Vegetables Fresh or frozen vegetables (raw, steamed, roasted, or grilled). Green salads. Grains Most grains. Choose whole wheat and whole grains most of the time. Rice and pasta, including brown rice and pastas made with whole wheat. Meats and other proteins Lean, well-trimmed beef, veal, pork, and gonzalez. Chicken and turkey without skin. All fish and shellfish. Wild duck, rabbit, pheasant, and venison. Egg whites or low-cholesterol egg substitutes. Dried beans, peas, lentils, and tofu. Seeds and most nuts. Dairy Low-fat or nonfat cheeses, including ricotta and mozzarella. Skim or 1% milk that is liquid, powdered, or evaporated. Buttermilk that is made with low-fat milk. Nonfat or low-fat yogurt. Fats and oils Non-hydrogenated (trans-free) margarines. Vegetable oils, including soybean, sesame, sunflower, olive, peanut, safflower, corn, canola, and cottonseed. Salad dressings or mayonnaise made with a vegetable oil. Beverages Mineral water. Coffee and tea. Diet carbonated beverages. Sweets and desserts Sherbet, gelatin, and fruit ice. Small amounts of dark chocolate. Limit all sweets and desserts. Seasonings and condiments All seasonings and condiments. The items listed above may not be a complete list of foods and drinks you can eat. Contact a dietitian for more options. What foods should I avoid? Fruits Canned fruit in heavy syrup. Fruit in cream or butter sauce. Fried fruit. Limit coconut. Vegetables Vegetables cooked in cheese, cream, or butter sauce. Fried vegetables. Grains Breads that are made with saturated or trans fats, oils, or whole milk. Croissants. Sweet rolls. Donuts. High-fat crackers, such as cheese crackers. Meats and other proteins Fatty meats, such as hot dogs, ribs, sausage, may, rib-eye roast or steak. High-fat deli meats, such as salami and bologna. Caviar. Domestic duck and goose. Organ meats, such as liver. Dairy Cream, sour cream, cream cheese, and creamed cottage cheese. Wh (more content not included)... Normal [facility] Outside Records Officeon Outside Records Office [id number]#1.00 CD:127 Normal [facility] Referrals Officeon 3 Referrals Office [id number]#1.00 CD:127 Normal [facility] MRI RECTUM WO/W IVCONon 06- MRI RECTUM WO/W IVCON * * *Final Report* * * DATE OF EXAM: Apr 18 2023 7:28PM SPM 0754 - MRI RECTUM WO/W IVCON / PROCEDURE REASON: Malignant neoplasm of rectum (HCC) * * * * Physician Interpretation * * * * RESULT: MRI OF THE PELVIS WITHOUT AND WITH CONTRAST: RECTAL CANCER RESTAGING CLINICAL HISTORY: Rectal Cancer RESTAGING Pretreatment Tumor Staging: T3N0 Rectal tumor histology: Adenocarcinoma (outside pathology from 09/20/2022 in Care Everywhere) Prior chemotherapy or radiation: Yes Other: N/A COMPARISON: Outside rectal MRI, 09/11/2022 TECHNIQUE: Magnet: Siemens Altea 1.5T scanner. Multiplanar MRI with multiple sequences before and after contrast. Contrast: IV: 20 ml of Dotarem Rectal: 60 ml of Surgilube RESULT: TREATED PRIMARY TUMOR CHARACTERISTICS (Compare to pre-treatment): DWI (with associated low ADC) ? restricted diffusion and low ADC in tumor or tumor bed: Absent (resolved since the baseline MRI). MRI-T2W: Entirely dark T2 signal/scar. T2 bright mucin (cannot distinguish between cellular and acellular mucin): Absent. Description: Dense T2 hypointense fibrosis centered along the low rectal wall from the 11:00 to the 5:00 position (8:15, 9:12), with scar extending inferiorly involving nearly the entire length of the anal canal. Distance of the inferior margin of treated tumor to the anal verge: 0 cm (9:7) Distance of the inferior margin to the top of sphincter complex/anorectal junction: 0 cm (9:12) Relationship to anterior peritoneal reflection: Below Craniocaudal length: 4.0 cm (9:12) Pre-treatment craniocaudal length: 5.8 cm (3:16 of the baseline MRI) Tumor location: Low rectum (0-5 cm) Maximal wall thickness: 0.5 cm (6:10) Pre-treatment wall thickness: 1.5 cm (5:16 and the baseline MRI) Invasion of anal sphincter complex: Invades internal sphincter (IAS) only. Anal canal involvement: Upper, mid and distal anal canal. Treated tumor involves essentially the entire length of the anal canal. No residual viable tumor. TUMOR DEPOSITS AND EXTRAMURAL VASCULAR INVASION (EMVI): Tumor deposits:(separate from metastatic lymph nodes): No. EMVI: No (none evident pre-treatment). MESORECTAL FASCIA (MRF): Shortest distance of extraluminal part of the tumor to MRF: Tumor does not extend into the mesorectal fat. Tumor extension through the peritonealized portion of the rectum into peritoneal fat: No extension into peritoneal fat. Is there a separate tumor deposit, LN or EMVI threatening (?1mm and ?2 mm) or invading (< 1 mm) the MRF? No. Comments: N/A T4 disease interval change: N/A POST-TREATMENT TUMOR REGRESSION: mrTRG: Grade 2 - Good response LYMPH NODES: Mesorectal/superior rectal lymph nodes and/or tumor deposits: N0 (no visible lymph nodes/deposits or only < 5 mm short axis) Index nodes: N/A Suspicious extra mesorectal lymph nodes: None OTHER STRUCTURES/ ORGANS INVOLVED: none OTHER FINDINGS: Extensive sigmoid diverticulosis without acute diverticulitis. The study was interpreted by Dr Isbell, a member of the rectal cancer multidisciplinary tumor board. IMPRESSION: Dense scar in the low rectal wall and involving nearly the entire length of the anal canal. No residual viable tumor. No lymphadenopathy. Since 09/11/2022, post treatment primary tumor assessment: Complete/near complete response. mrTRG: Grade 2 - Good response Suspicious Mesorectal lymph nodes: No. Suspicious Extramesorectal lymph nodes: No. v 03/22/21 Transcribed Using Voice Recognition Transcribe Date/Time: Apr 19 2023 7:05A Dictated by: MARK ISBELL MD This examination was interpreted and the report reviewed and electronically signed by: MARK ISBELL MD on Apr 19 2023 7:18AM EST [id number] [facility] CNPN [facility] Consultation Noteon 04-17-20 Consultation Note [id number]#1.00C D:127 Normal [facility] CBC W Auto Differential pane l (Bld)on 04-16-2023 Basophils (Bld) [#/Vol] 0.07 10*3/uL Normal <0.11 [facility] Comment on above: Order Comment: Speci men Type: BLOOD SPECIMENOrdering Facility: [facility] Address: [address] [place] [address] Performed By: #### 5 7021-8 ####[facility] LABCLIA [id number] [place] [address] Basophils/100 WBC (Bld) 0.8 % Normal [facility] Comment on above: Order Comment: Speci men Type: BLOOD SPECIMENOrdering Facility: [facility] Address: [address] [place] [address] Performed By: #### 5 7021-8 ####[facility] LABCLIA [id number] [place] [address] Differential cell count method Nom (Bld) Auto Normal [facility] Comment on above: Order Comment: Speci men Type: BLOOD SPECIMENOrdering Facility: [facility] Address: [address] [place] [address] Performed By: #### 5 7021-8 ####[facility] LABCLIA [id number] [place] [address] Eosinophils (Bld) [#/Vol] 0.14 10*3/uL Normal <0.46 [facility] Comment on above: Order Comment: Speci men Type: BLOOD SPECIMENOrdering Facility: [facility] Address: [address] [place] [address] Performed By: #### 5 7021-8 ####[facility] LABCLIA [id number] [place] [address] Eosinophils/100 WBC (Bld) 1.7 % Normal [facility] Comment on above: Order Comment: Speci men Type: BLOOD SPECIMENOrdering Facility: [facility] Address: [address] [place] [address] Performed By: #### 5 7021-8 ####[facility] LABCLIA [id number] [place] [address] Erythrocyte distribution width (RBC) [Ratio] 17.3 % High 11.5-15.0 [facility] Comment on above: Order Comment: Speci men Type: BLOOD SPECIMENOrdering Facility: [facility] Address: [address] [place] [address] Performed By: #### 5 7021-8 ####[facility] LABCLIA [id number] [place] [address] Hematocrit (Bld) [Volume fraction] 35.2 % Low 39.0-51.0 [facility] Comment on above: Order Comment: Speci men Type: BLOOD SPECIMENOrdering Facility: [facility] Address: [address] [place] [address] Performed By: #### 5 7021-8 ####[facility] LABIA [id number] [place] [address] Hemoglobin (Bld) [Mass/Vol] 11.3 g/dL Low 13.0-17.0 [facility] Comment on above: Order Comment: Speci men Type: BLOOD SPECIMENOrdering Facility: [facility] Address: [address] [place] [address] Performed By: #### 5 7021-8 ####[facility] LABCLIA [id number] [place] [address] Immature granulocytes (Bld) [#/Vol] 0.13 10*3/uL High <0.10 [facility] Comment on above: Order Comment: Speci men Type: BLOOD SPECIMENOrdering Facility: [facility] Address: [address] [place] [address] Performed By: #### 5 7021-8 ####[facility] LABCLIA [id number] [place] [address] Immature granulocytes/100 WBC (Bld) 1.6 % Normal [facility] Comment on above: Order Comment: Speci men Type: BLOOD SPECIMENOrdering Facility: [facility] Address: [address] [place] [address] Performed By: #### 5 7021-8 ####[facility] LABCLIA [id number] [place] [address] Lymphocytes (Bld) [#/Vol] 1.09 10*3/uL Normal 1.00-4.00 [facility] Comment on above: Order Comment: Speci men Type: BLOOD SPECIMENOrdering Facility: [facility] Address: [address] [place] [address] Performed By: #### 5 7021-8 ####[facility] LABCLIA [id number] [place] [address] Lymphocytes/100 WBC (Bld) 13.1 % Normal [facility] Comment on above: Order Comment: Speci men Type: BLOOD SPECIMENOrdering Facility: [facility] Address: [address] [place] [address] Performed By: #### 5 7021-8 ####[facility] LABCLIA [id number] [place] [address] MCH (RBC) [Entitic mass] 31.9 pg Normal 26.0-34.0 [facility] Comment on above: Order Comment: Speci men Type: BLOOD SPECIMENOrdering Facility: [facility] Address: [address] [place] [address] Performed By: #### 5 7021-8 ####[facility] LABCLIA [id number] [place] [address] MCHC (RBC) [Mass/Vol] 32.1 g/dL Normal 30.5-36.0 [facility] Comment on above: Order Comment: Speci men Type: BLOOD SPECIMENOrdering Facility: [facility] Address: [address] [address] Performed By: #### 5 7021-8 ####[facility] LABCLIA [id number] [place] [address] MCV (RBC) [Entitic vol] 99.4 fL Normal 80.0-100.0 [facility] Comment on above: Order Comment: Speci men Type: BLOOD SPECIMENOrdering Facility: [facility] Address: [address] [place] [address] Performed By: #### 5 7021-8 ####[facility] LABCLIA [id number] [place] [address] Monocytes (Bld) [#/Vol] 0.75 10*3/uL Normal <0.87 [facility] Comment on above: Order Comment: Speci men Type: BLOOD SPECIMENOrdering Facility: [facility] Address: [address] [address] Performed By: #### 5 7021-8 ####[facility] LABCLIA [id number] [place] [address] Monocytes/100 WBC (Bld) 9.0 % Normal [facility] Comment on above: Order Comment: Speci men Type: BLOOD SPECIMENOrdering Facility: [facility] Address: [address] [address] Performed By: #### 5 7021-8 ####[facility] LABCLIA [id number] [place] [address] Neutrophils (Bld) [#/Vol] 6.14 10*3/uL Normal 1.45-7.50 [facility] Comment on above: Order Comment: Speci men Type: BLOOD SPECIMENOrdering Facility: [facility] Address: [address] [place] [address] Performed By: #### 5 7021-8 ####[facility] LABCLIA [id number] [place] [address] Neutrophils/100 WBC (Bld) 73.8 % Normal [facility] Comment on above: Order Comment: Speci men Type: BLOOD SPECIMENOrdering Facility: [facility] Address: [address] [place] [address] Performed By: #### 5 7021-8 ####[facility] LABCLIA [id number] [place] [address] Nucleated RBC (Bld) [#/Vol] 10*3/uL Normal <0.01 [facility] Comment on above: Order Comment: Speci men Type: BLOOD SPECIMENOrdering Facility: [facility] Address: [address] [place] [address] Performed By: #### 5 7021-8 ####[facility] LABIA [id number] [place] [address] Nucleated RBC/100 WBC (Bld) [Ratio] 0.0 /100 WBC Normal [facility] Comment on above: Order Comment: Speci men Type: BLOOD SPECIMENOrdering Facility: [facility] Address: [address] [place] [address] Performed By: #### 5 7021-8 ####[facility] LABIA [id number] [place] [address] Platelet mean volume (Bld) [Entitic vol] 10.0 fL Normal 9.0-12.7 [facility] Comment on above: Order Comment: Speci men Type: BLOOD SPECIMENOrdering Facility: [facility] Address: [address] [place] [address] Performed By: #### 5 7021-8 ####[facility] LABIA [id number] [place] [address] Platelets (Bld) [#/Vol] 227 10*3/uL Normal 150-400 [facility] Comment on above: Order Comment: Speci men Type: BLOOD SPECIMENOrdering Facility: [facility] Address: [address] [address] Performed By: #### 5 7021-8 ####[facility] LABIA [id number] [place] [address] RBC (Bld) [#/Vol] 3.54 10*6/uL Low 4.20-6.00 [facility] Comment on above: Order Comment: Speci men Type: BLOOD SPECIMENOrdering Facility: [facility] Address: [address] [address] Performed By: #### 5 7021-8 ####[facility] LABIA [id number] [place] [address] WBC (Bld) [#/Vol] 8.32 10*3/uL Normal 3.70-11.00 [facility] Comment on above: Order Comment: Speci men Type: BLOOD SPECIMENOrdering Facility: [facility] Address: [address] [place] [address] Performed By: #### 5 7021-8 ####[facility] LABIA [id number] [place] [address] Basophils (Bld) [#/Vol] 0.07 10*3/uL <0.11 k/uL [facility] Basophils/100 WBC (Bld) 0.8 % [facility] Differential cell count method Nom (Bld) Auto [facility] Eosinophils (Bld) [#/Vol] 0.14 10*3/uL <0.46 k/uL [facility] Eosinophils/100 WBC (Bld) 1.7 % [facility] Erythrocyte distribution width (RBC) [Ratio] 17.3 % High 11.5 - 15.0 % [facility] Hematocrit (Bld) [Volume fraction] 35.2 % Low 39.0 - 51.0 % [facility] Hemoglobin (Bld) [Mass/Vol] 11.3 g/dL Low 13.0 - 17.0 g/dL [facility] Immature granulocytes (Bld) [#/Vol] 0.13 10*3/uL High <0.10 k/uL [facility] Immature granulocytes/100 WBC (Bld) 1.6 % [facility] Lymphocytes (Bld) [#/Vol] 1.09 10*3/uL 1.00 - 4.00 k/uL [facility] Lymphocytes/100 WBC (Bld) 13.1 % [facility] MCH (RBC) [Entitic mass] 31.9 pg 26.0 - 34.0 pg [facility] MCHC (RBC) [Mass/Vol] 32.1 g/dL 30.5 - 36.0 g/dL [facility] MCV (RBC) [Entitic vol] 99.4 fL 80.0 - 100.0 fL [facility] Monocytes (Bld) [#/Vol] 0.75 10*3/uL <0.87 k/uL [facility] Monocytes/100 WBC (Bld) 9.0 % [facility] Neutrophils (Bld) [#/Vol] 6.14 10*3/uL 1.45 - 7.50 k/uL [facility] Neutrophils/100 WBC (Bld) 73.8 % [facility] Nucleated RBC (Bld) [#/Vol] <0.01 k/uL [facility] Nucleated RBC/100 WBC (Bld) [Ratio] 0.0 /100 WBC [facility] Platelet mean volume (Bld) [Entitic vol] 10.0 fL 9.0 - 12.7 fL [facility] Platelets (Bld) [#/Vol] 227 10*3/uL 150 - 400 k/uL [facility] RBC (Bld) [#/Vol] 3.54 10*6/uL Low 4.20 - 6.0 0 m/uL [facility] WBC (Bld) [#/Vol] 8.32 10*3/uL 3.70 - 11.00 k/uL [facility] CEA SerPl-mCncon 04-16-2023 Carcinoembryonic Ag [Mass/Vol] 2.1 ng/mL Normal <=2.9 [facility] Comment on above: Order Comment: Speci men Type: BLOOD SPECIMENOrdering Facility: [facility] Address: [address] [place] [id number] Result Comment: Carc inoembryonic antigen test is used as an aid in monitoring response to treatment or recurrence in patients with established colorectal, breast, lung, prostatic, pancreatic, and ovarian carcinomas. Clinical correlation is required.The Carcinoembryonic antigen test was performed using the Korina Mcfarland Unicel DXI paramagnetic particle chemiluminescent immunoassay method. Results obtained with different assay methods or kits cannot be used interchangeably. Performed By: #### 2 039-6 ####[facility] LABCLIA [id number] [address] [place] [address] [place] CNOVSPon 04-16-2023 CNOVSP Normal [facility] Comprehensive metabolic 2000 panelon 04-16-2023 Albumin [Mass/Vol] 3.8 g/dL Low 3.9-4.9 [facility] Comment on above: Order Comment: Speci men Type: BLOOD SPECIMENOrdering Facility: [facility] Address: [address] [address] Performed By: #### 2 4323-8 ####[facility] LABCLIA [id number] [place] [address] ALP [Catalytic activity/Vol] 88 U/L Normal 38-113 [facility] Comment on above: Order Comment: Speci men Type: BLOOD SPECIMENOrdering Facility: [facility] Address: [address] [address] Performed By: #### 2 4323-8 ####[facility] LABCLIA [id number] [place] [address] ALT [Catalytic activity/Vol] 11 U/L Normal 10-54 [facility] Comment on above: Order Comment: Speci men Type: BLOOD SPECIMENOrdering Facility: [facility] Address: [address] [address] Performed By: #### 2 4323-8 ####[facility] LABIA [id number] [place] [address] Anion gap [Moles/Vol] 11 mmol/L Normal 9-18 [facility] Comment on above: Order Comment: Speci men Type: BLOOD SPECIMENOrdering Facility: [facility] Address: [address] [address] Performed By: #### 2 4323-8 ####[facility] LABCLIA [id number] [place] [address] AST [Catalytic activity/Vol] 16 U/L Normal 14-40 [facility] Comment on above: Order Comment: Speci men Type: BLOOD SPECIMENOrdering Facility: [facility] Address: [address] [place] [address] Performed By: #### 2 4323-8 ####[facility] LABCLIA [id number] [place] [address] Bilirubin [Mass/Vol] 0.4 mg/dL Normal 0.2-1.3 [facility] Comment on above: Order Comment: Speci men Type: BLOOD SPECIMENOrdering Facility: [facility] Address: [address] [place] [address] Performed By: #### 2 4323-8 ####[facility] LABCLIA [id number] [place] [address] Calcium [Mass/Vol] 9.5 mg/dL Normal 8.5-10.2 [facility] Comment on above: Order Comment: Speci men Type: BLOOD SPECIMENOrdering Facility: [facility] Address: [address] [place] [address] Performed By: #### 2 4323-8 ####[facility] LABCLIA [id number] [place] [address] Chloride [Moles/Vol] 107 mmol/L High 97-105 [facility] Comment on above: Order Comment: Speci men Type: BLOOD SPECIMENOrdering Facility: [facility] Address: [address] [place] [address] Performed By: #### 2 4323-8 ####[facility] LABCLIA [id number] [place] [address] CO2 [Moles/Vol] 25 mmol/L Normal 22-30 [facility] Comment on above: Order Comment: Speci tdod Type: BLOOD SPECIMENOrdering Facility: [facility] Address: [address] [address] Performed By: #### 2 4323-8 ####[facility] LABCLIA [id number] [place] [address] Creatinine [Mass/Vol] 1.10 mg/dL Normal 0.73-1.22 [facility] Comment on above: Order Comment: Speci men Type: BLOOD SPECIMENOrdering Facility: [facility] Address: [address] [address] Performed By: #### 2 4323-8 ####[facility] LABCLIA [id number] [place] [address] ESTIMATED GLOMERULAR FILTRATION RATE 72 mL/min/1.73m??? Normal >=60 [facility] Comment on above: Order Comment: Specamador men Type: BLOOD SPECIMENOrdering Facility: [facility] Address: [address] [place] [address] Result Comment: Rebekah mated Glomerular Filtration Rate (eGFR) is calculated using the 2020 CKD-EPI creatinine equation. This equation utilizes serum creatinine, sex, and age as parameters. The creatinine assay has traceable calibration to isotope dilution-mass spectrometry. Refer to KDIGO guidelines for clinical interpretation. In patients with unstable renal function, e.g. those with acute kidney injury, the eGFR may not accurately reflect actual GFR. Performed By: #### 2 4323-8 ####[facility] LABCLIA [id number] [place] [address] Glucose [Mass/Vol] 126 mg/dL High 74-99 [facility] Comment on above: Order Comment: Nazario brooks Type: BLOOD SPECIMENOrdering Facility: [facility] Address: [address] [place] [address] Result Comment: The [place] Diabetes [employer] (ADA) provides guidance for cutoff values for fasting glucose and random glucose. The ADA defines fasting as no caloric intake for at least 8 hours. Fasting plasma glucose results between 100 to 125 mg/dL indicate increased risk for diabetes (prediabetes).Fasting plasma glucose results greater than or equal to 126 mg/dL meet the criteria for diagnosis of diabetes. In the absence of unequivocal hyperglycemia, results should be confirmed by repeat testing. In a patient with classic symptoms of hyperglycemia or hyperglycemic crisis, random plasma glucose results greater than or equal to 200 mg/dL meet the criteria for diagnosis of diabetes.Reference: Standards of Medical Care in Diabetes 2016, [place] [employer]. Diabetes Care. 2016.39(Suppl 1). Performed By: #### 2 4323-8 ####[facility] LABCLIA [id number] [place] [address] Potassium [Moles/Vol] 3.2 mmol/L Low 3.7-5.1 [facility] Comment on above: Order Comment: Speci men Type: BLOOD SPECIMENOrdering Facility: [facility] Address: [address] [place] [address] Performed By: #### 2 4323-8 ####[facility] LABCLIA [id number] [place] [address] Protein [Mass/Vol] 6.2 g/dL Low 6.3-8.0 [facility] Comment on above: Order Comment: Speci men Type: BLOOD SPECIMENOrdering Facility: [facility] Address: [address] [place] [address] Performed By: #### 2 4323-8 ####[facility] LABCLIA [id number] [place] [address] Sodium [Moles/Vol] 143 mmol/L Normal 136-144 [facility] Comment on above: Order Comment: Speci men Type: BLOOD SPECIMENOrdering Facility: [facility] Address: [address] [place] [address] Performed By: #### 2 4323-8 ####[facility] LABCLIA [id number] [place] [address] Urea nitrogen [Mass/Vol] 22 mg/dL Normal 9-24 [facility] Comment on above: Order Comment: Speci men Type: BLOOD SPECIMENOrdering Facility: [facility] Address: [place] [address] Performed By: #### 2 4323-8 ####[facility] LABCLIA [id number] [place] [address] Albumin [Mass/Vol] 3.8 g/dL Low 3.9 - 4.9 g/dL [facility] ALP [Catalytic activity/Vol] 88 U/L 38 - 113 U/L [facility] ALT [Catalytic activity/Vol] 11 U/L 10 - 54 U/L [facility] Anion gap [Moles/Vol] 11 mmol/L 9 - 18 mmol/L [facility] AST [Catalytic activity/Vol] 16 U/L 14 - 40 U/L [facility] Bilirubin [Mass/Vol] 0.4 mg/dL 0.2 - 1 .3 mg/dL [facility] Calcium [Mass/Vol] 9.5 mg/dL 8.5 - 10. 2 mg/dL [facility] Chloride [Moles/Vol] 107 mmol/L High 97 - 10 5 mmol/L [facility] CO2 [Moles/Vol] 25 mmol/L 22 - 30 mmol/L [facility] Creatinine [Mass/Vol] 1.10 mg/dL 0.73 - 1.22 mg/dL [facility] Estimated Glomerular Filtration Rate 72 mL/min/1.73m >=60 mL/min/1.73 m [facility] Glucose [Mass/Vol] 126 mg/dL High 74 - 99 mg/dL [facility] Potassium [Moles/Vol] 3.2 mmol/L Low 3.7 - 5.1 mmol/L [facility] Protein [Mass/Vol] 6.2 g/dL Low 6.3 - 8.0 g/dL [facility] Sodium [Moles/Vol] 143 mmol/L 136 - 144 mmol/L [facility] Urea nitrogen [Mass/Vol] 22 mg/dL 9 - 24 mg/dL [facility] XR cerv spine AP/LAT/FLX/EXT on 04-11-2023 XR cerv spine AP/LAT/FLX/EXT [address] [address] XRay Report Signed Patient: Mervat Damon MR#: [id number] : 1950 Acct:[id number] Age/Sex: 72 / M ADM Date: 04/11/23 Loc: XD Room: Type: [facility] CLI Attending Dr: Valencia ONEAL Copies to: JM Godoy Ordering Provider: JM Godoy Date of Service: 04/11/23 XR/XR hips BI 4V adult: M54.12 ([id number]) XR/XR cerv spine AP/LAT/FLX/EXT: M54.12 CLINICAL HISTORY: Bilateral hip pain. Follow-up after cervical fusion. ADULT BILATERAL HIPS -2 views each COMPARISON: CT 09/25/2022 AP and frog-lateral views of both hips were obtained. There is osteopenia. No acute fracture or dislocation is seen. The hip joint spaces are symmetric. There is mild marginal hypertrophy at the periphery of the superior acetabulum and minimal at the periphery of the femoral heads, greater on the left. Bony ossicles along the medial right femoral neck were also present on the comparison CT exam. There is minimal SI joint sclerosis. The soft tissues are unremarkable. XR/XR hips BI 4V adult IMPRESSION: OSTEOPENIA AND MINOR DEGENERATIVE CHANGES. NO ACUTE BONY FINDINGS. CERVICAL SPINE WITH FLEXION-EXTENSION VIEWS - 4 views COMPARISON: 03/18/2023 AP as well as lateral views in neutral, flexion and extension were obtained. There is an anterior plate and screws extending from C5 through C7. There is also an interbody fusion device at C4-5. The hardware appears intact and unchanged from the prior. Straightening of the normal cervical lordosis is again seen. No developing fracture is identified. No displacement or instability is seen. The disc spaces above and below the levels of fusion are maintained. There is multilevel facet disease, greatest proximally on the left. No prevertebral soft tissue swelling is noted. IMPRESSION: POSTOPERATIVE AND DEGENERATIVE CHANGES, SIMILAR TO THE PRIOR. Impression dictated by: Viola Santiago M.D.04/11/2023 11:02 AM Dictation Location: [address] [place] [address] Transcribed By: [facility] 04/11/23 1102 Dictated By: Viola Santiago MD 04/11/23 1054 Signed By: 04/11/23 1102 [facility] SURGICAL PATHOLOGYon 023 Case Report Surgical Pathology Report Case: [id number] Authorizing Provider: Deborah Norman MD Collected: 04/09/2023 01:00 PM Ordering Location: Procedures Received: 04/09/2023 02:35 PM Pathologist: Aries Lynch MD Specimen: ANAL CANAL BIOPSY, polyp [facility] FINAL DIAGNOSIS A. Anal canal, polyp , biopsy: - Squamous mucosa polyp. [facility] Gross Description A. ANAL CANAL BIOPSY Received in formalin is one santos-martínez polypoid segment of tissue measuring 0.3 x 0.3 x 0.2 cm. No stalk is present. The line of resection is noted. The specimen is not sectioned and totally submitted in one cassette. Gross examination performed at [facility], [address] [place] [address] 04/09/2023 7:48 PM [facility] Performing Lab Diagnostic interpretation performed at [facility], [address] [place] [address]# [id number] Sand Temperer: Aries Lynch M.D. [facility] ANES POSTPROC EVALon 023 ANES POSTPROC EVAL HNO ID: [id number] Author: Deborah Gomez MD Service: Anesthesiology Author Type: Anesthesiologist Type: Anesthesia Postprocedure Evaluation Filed: 04/09/2023 2:10 PM Note Text: POST ANESTHESIA EVALUATION NOTE : 1950 Procedure Summary Date: 04/09/23 Room / Location: Procedures Anesthesia Start: 1223 Anesthesia Stop: 1303 Procedure: COLONOSCOPY DIAGNOSTIC Diagnosis: Rectal cancer (HCC) (High risk colon cancer surveillance: Personal history of rectal cancer) Scheduled Providers: Deborah Norman MD; JUDAH Wallace; Deborah Gomez MD Responsible Provider: Deborah Gomez MD Anesthesia Type: MAC ASA Status: 2 Anesthesia Type: MAC Last Vitals Vitals Value Taken Time BP 138/95 04/09/23 1330 Temp 36.3 ?C (97.3 ?F) 04/09/23 1305 Pulse 78 04/09/23 1330 Resp 15 04/09/23 1330 SpO2 94 % 04/09/23 1332 Vitals shown include unvalidated device data. Post Anesthesia Patient Status Patient Evaluation: bedside. Anticipated Disposition: phase 2 then home. Neurological Status: aware and responsive. Pulmonary Status: breathing comfortably on room air Airway Control: returned to baseline unsupported. Cardiovascular Status: stable. Pain Management: clinically adequate Postoperative Hydration: acceptable. Intraoperative Events: no significant anesthesia events Post Operative Nausea/Vomiting Status: no significant post operative nausea or vomiting Recommendation: continue current plan of care. Anesthesia Observations No Documentation SIGNATURE: Deborah Gomez MD PATIENT NAME: Mervat Damon DATE: April 09, 2023 TIME: 2:09 PM CSN: [id number] [facility] ANES PRE-OPon 04-09-2023 ANES PRE-OP HNO ID: [id number] Author: Deborah Gomez MD Service: Anesthesiology Author Type: Anesthesiologist Type: Anesthesia Preprocedure Evaluation Filed: 04/09/2023 12:18 PM Note Text: ANESTHESIOLOGY DAY OF SURGERY NOTE : 1950 Procedure Information Date/Time: 04/09/23 1130 Scheduled providers: Deborah Norman MD; JUDAH Wallace; Deborah Gomez MD Procedure: COLONOSCOPY DIAGNOSTIC Location: Procedures Estimated body mass index is 31.23 kg/m? as calculated from the following: Height as of 03/19/23: 187.7 cm (6' 1.9 ). Weight as of 03/19/23: 110 kg (242 lb 9.6 oz). Most recent hematocrit and potassium results: Hematocrit 35.0 03/19/2023 Potassium 3.6 03/19/2023 Relevant Problems No relevant active problems I - PHYSICAL EVALUATION AIRWAY Patient intubated: No. Tracheostomy tube not present Mallampati: II. TM distance: >3 FB. Neck ROM: full ROM without neurological symptoms. Mouth opening: adequate. Short neck: no. Thick neck: no DENTAL Dental findings: teeth intact. Additional exam findings: no II - ANESTHESIA PLAN ASA Score: 2 Anesthetic Plan: MAC The patient is not a current smoker. NPO Status: adequate Beta Taina Monitoring Plan Monitoring plan: standard ASA. Post Procedure Analgesic Plan Postoperative analgesic plan: multimodal analgesia. Informed Consent Anesthetic risks, benefits, alternatives, personnel and consent discussed: yes. Patient / Responsible [employer] agrees to proceed: yes Patient / Surrogate agrees to blood products: blood products not planned Significant changes in the patient condition since the History and Physical, not otherwise documented in primary service progress note: no. Potential Anesthesia issues that may suggest increased risk of complications or contraindication to planned procedure: none. Vitals Value Taken Time BP 118/74 04/09/23 1212 Pulse Resp 18 04/09/23 1212 Temp 36.2 ?C (97.1 ?F) 04/09/23 1212 SpO2 96 % 04/09/23 1212 Outpatient Medications as of 04/09/2023 Medication Sig - cyclobenzaprine (FLEXERIL) 10 mg tablet Take 10 mg by mouth. - predniSONE (DELTASONE) 5 mg tablet Take 5 mg by mouth once daily. - rivaroxaban (XARELTO) 20 mg tablet Take 1 tablet by mouth daily with dinner. - iv contrast (will be provided with radiology test) MRI Rectum Inject, intravenously, once for 1 dose. No IV access, insert saline lock prior to the beginning of sedation, infusion, injection of imaging exam. Discontinue saline lock post exam. If Pt has a central line or IVAD, may access for administration according to line specific nursing protocol. Once exam is complete flush line and de-access according to line specific nursing protocol in the MR contrast administration guidelines link. (Patient not taking: No sig reported) - enteric contrast (will be provided with radiology test) MRI RECTUM WO/W. Administer, As Directed One Time Only, via Oral, Rectal, both Oral and Rectal, Enteric Tube, Stoma or Indwelling Catheter,? Enteric Contrast as designated per enteric contrast guidelines (Patient not taking: No sig reported) - rivaroxaban (XARELTO DVT-PE TREAT 30D START) 15 mg (42)- 20 mg (9) DsPk Take 1 tablet (15 mg) by mouth twice daily with food for 21 days. Then take 1 tablet (20 mg) by mouth once daily with food for 9 days. - calcium carbonate (CALCIUM 600 ORAL) Take 1 tablet by mouth once daily. - diphenhydrAMINE-Acetami nophen (TYLENOL PM EXTRA STRENGTH) 25-500 mg tab Take 1 tablet by mouth daily at bedtime. - glucosamine/chondr perez A sod (GLUCOSAMINE-CHONDROITI N) 1,500-1,200 mg/30 mL liqd Take by mouth once daily. - hydroCHLOROthiazide (HYDRODIURIL, ESIDRIX) 12.5 mg capsule Take 12.5 mg by mouth once daily. - oxyCODONE-acetaminophen (PERCOCET) 5-325 mg tablet Take 1 tablet by mouth every 6 hours as needed for pain. - finasteride (PROSCAR) 5 mg tablet Take by mouth once daily. - HYDROcodone-acetaminoph en (NORCO) 5-325 mg per tablet Take 1 tablet by mouth every 8 hours as needed for pain. - ondansetron (ZOFRAN) 8 mg tablet Take 1 tablet by mouth every 8 hours as needed for nausea/vomiting. - prochlorperazine (COMPAZINE) 10 mg tablet Take 1 tablet by mouth every 6 hours as needed. - acetaminophen 325 mg cap Take by mouth as needed. - valsartan (DIOVAN) 80 mg tablet Take 80 mg by mouth once daily. - carvedilol (COREG) 6.25 mg tablet Take 6.25 mg by mouth twice daily with meals. - folic acid 1 mg tablet Take 1 mg by mouth once daily. - tamsulosin ER (FLOMAX) 0.4 mg cap Take 0.4 mg by mouth twice daily. - Ascorbic Acid 100 mg tablet Take 100 mg by mouth twice daily. Facility-Administered Medications as of 04/09/2023 Medication Dose Route Frequency - NaCl 0.9% iv flush bag 20 mL INTRAVENOUS PRN I have interviewed and examined the patient. I have reviewed the medical record and/or the pre-anesthesia evaluation, pertinent labs, and test results. This contains updated information obtained (more content not included)... Normal [facility] COLONOSCOPY DIAGNOSTICon [facility] [place] Colonoscopyon 04-09-2023 Colonoscopy [facility] Gastrointestinal Endoscopy Patient Name: Mervat Damon Procedure Date: 04/09/2023 12:15 PM Date of : 1950 Admit Type: Outpatient Age: 72 Room: [facility] 01 Gender: Male Note Status: Finalized Attending MD: Deborah Norman MD Procedure: Colonoscopy Indications: High risk colon cancer surveillance: Personal history of rectal cancer Providers: Deborah Norman MD Patient Profile: This is a 72 year old male. Refer to note in patient chart for documentation of history and physical. Last Colonoscopy: date unknown. Referring Physician: Deborah Norman MD (Referring MD) Medicines: Monitored Anesthesia Care Complications: No immediate complications. Requesting Provider: Procedure: Pre-Anesthesia Assessment: - Prior to the procedure, a History and Physical was performed, and patient medications and allergies were reviewed. The patient is competent. The risks and benefits of the procedure and the sedation options and risks were discussed with the patient. All questions were answered and informed consent was obtained. Patient identification and proposed procedure were verified by the physician and the nurse in the pre-procedure area in the endoscopy suite. Mental Status Examination: alert and oriented. Airway Examination: normal oropharyngeal airway and neck mobility. ASA Grade Assessment: III - A patient with severe systemic disease. After reviewing the risks and benefits, the patient was deemed in satisfactory condition to undergo the procedure. The anesthesia plan was to use monitored anesthesia care (MAC). Immediately prior to administration of medications, the patient was re-assessed for adequacy to receive sedatives. The heart rate, respiratory rate, oxygen saturations, blood pressure, adequacy of pulmonary ventilation, and response to care were monitored throughout the procedure. The physical status of the patient was re-assessed after the procedure. After I obtained informed consent, the scope was passed under direct vision. Throughout the procedure, the patient's blood pressure, pulse, and oxygen saturations were monitored continuously. The Colonoscope was introduced through the anus and advanced to the cecum, identified by appendiceal orifice and ileocecal valve. The colonoscopy was technically difficult and complex due to restricted mobility of the colon. The patient tolerated the procedure well. The quality of the bowel preparation was good. The ileocecal valve, the appendiceal orifice and the rectum were photographed. Scope Withdrawal Time: 0 hours 9 minutes 44 seconds Moderate Sedation: MAC anesthesia was administered by the anesthesia team. Total Procedure Duration: 0 hours 32 minutes 37 seconds Findings: Skin tags were found on perianal exam. A 4 mm polyp was found in the anus. The polyp was sessile. The polyp was removed with a hot snare. Resection and retrieval were complete. A scar was found in the rectum. The scar tissue was healthy in appearance. Endoscopically this is a complete response Many small and large-mouthed diverticula were found in the sigmoid colon. The exam was otherwise without abnormality. Impression: - Perianal skin tags found on perianal exam. - One 4 mm polyp at the anus, removed with a hot snare. Resected and retrieved. - Scar in the rectum. - Diverticulosis in the sigmoid colon. - The examination was otherwise normal. Recommendation: - Discharge patient to home. - Resume previous diet. - Continue present medications. - Await pathology results. - Repeat colonoscopy in 1 year for surveillance. - Patient has a contact number available for emergencies. The signs and symptoms of potential delayed complications were discussed with the patient. Return to normal activities tomorrow. Written discharge instructions were provided to the patient. Procedure Code(s): --- Professional --- 24994, Colonoscopy, flexible; with removal of tumor(s), polyp(s), or other lesion(s) by snare technique CPT copyright 2020 [employer]. All rights reserved. The codes documented in this report are preliminary and upon surgical coder review may be revised to meet current compliance requirements. Attending Participation: I was present and participated during the entire procedure, including non-tripp portions. Scope In: 12:28:46 PM Scope Out: 1:01:23 PM MD Deborah Harper MD 04/09/2023 1:08:30 PM This report has been signed electronically by Deborah Norman MD Number of Addenda: 0 Note Initiated On: 04/09/2023 12:15 PM Estimated Blood Loss: Estimated blood loss was minimal. 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 Completed MARIZA, last dose last week Last dose Xarelto last Saturday PSHx - lap inguinal hernia (bilat), open appendectomy as child Does not remember last full c-scope, possibly in 2019 PAST ANESTHESIA HISTORY: No history of adverse event PAST MEDICAL HISTORY Diagnosis Date Acute low back pain with possible spinal stenosis of less than six weeks' duration Adenocarcinoma of rectum (HCC) Arthritis Bilateral renal cysts peripelvic BPH with urinary obstruction Cholelithiasis History of kidney stones Non-ischemic cardiomyopathy (HCC) Pulmonary emboli (HCC) 2019 left lower lobe RA (rheumatoid arthritis) (HCC) PAST SURGICAL HISTORY Procedure Laterality Date COLONOSCOPY HAMMERTOE REVISION, ONE TOE HEMORRHOID SURGERY HX HERNIA REPAIR HX LITHOTRIPSY PROC UNILATERAL REMV CATARACT EXTRACAP,INSERT LENS Prior to Admission medications as of 04/09/23 1159 Medication Sig Last Dose Taking cyclobenzaprine (FLEXERIL) 10 mg tablet Take 10 mg by mouth. Past Week Yes predniSONE (DELTASONE) 5 mg tablet Take 5 mg by mouth once daily. 04/09/2023 at 0800 Yes rivaroxaban (XARELTO) 20 mg tablet Take 1 tablet by mouth daily with dinner. 04/05/2023 iv contrast (will be provided with radiology test) MRI Rectum Inject, intravenously, once for 1 dose. No IV access, insert saline lock prior to the beginning of sedation, infusion, injection of imaging exam. Discontinue saline lock post exam. If Pt has a central line or IVAD, may access for administration according to line specific nursing protocol. Once exam is complete flush line and de-access according to line specific nursing protocol in the MR contrast administration guidelines link. Patient not taking: No sig reported Unknown enteric contrast (will be provided with radiology test) MRI RECTUM WO/W. Administer, As Directed One Time Only, via Oral, Rectal, both Oral and Rectal, Enteric Tube, Stoma or Indwelling Catheter, Enteric Contrast as designated per enteric contrast guidelines Patient not taking: No sig reported Unknown rivaroxaban (XARELTO DVT-PE TREAT 30D START) 15 mg (42)- 20 mg (9) DsPk Take 1 tablet (15 mg) by mouth twice daily with food for 21 days. Then take 1 tablet (20 mg) by mouth once daily with food for 9 days. 04/05/2023 calcium carbonate (CALCIUM 600 ORAL) Take 1 tablet by mouth once daily. 04/07/2023 diphenhydrAMINE-Acetami nophen (TYLENOL PM EXTRA STRENGTH) 25-500 mg tab Take 1 tablet by mouth daily at bedtime. Unknown glucosamine/chondr perez A sod (GLUCOSAMINE-CHONDROITI N) 1,500-1,200 mg/30 mL liqd Take by mouth once daily. 04/07/2023 hydroCHLOROthiazide (HYDRODIURIL, ESIDRIX) 12.5 mg capsule Take 12.5 mg by mouth once daily. 04/07/2023 oxyCODONE-acetaminophen (PERCOCET) 5-325 mg tablet Take 1 tablet by mouth every 6 hours as needed for pain. Unknown finasteride (PROSCAR) 5 mg tablet Take by mouth once daily. 04/07/2023 HYDROcodone-acetaminoph en (NORCO) 5-325 mg per tablet Take 1 tablet by mouth every 8 hours as needed for pain. Unknown ondansetron (ZOFRAN) 8 mg tablet Take 1 tablet by mouth every 8 hours as needed for nausea/vomiting. Unknown prochlorperazine (COMPAZINE) 10 mg tablet Take 1 tablet by mouth every 6 hours as needed. Unknown acetaminophen 325 mg cap Take by mouth as needed. Unknown valsartan (DIOVAN) 80 mg tablet Take 80 mg by mouth once daily. 04/07/2023 carvedilol (COREG) 6.25 mg tablet Take 6.25 mg by mouth twice daily with meals. 04/07/2023 folic acid 1 mg tablet Take 1 mg by mouth once daily. 04/07/2023 tamsulosin ER (FLOMAX) 0.4 mg cap Take 0.4 mg by mouth twice daily. 04/07/2023 Ascorbic Acid 100 mg tablet Take 100 mg by mouth twice daily. 04/07/2023 ALLERGIES No Known Allergies Objective PHYSICAL EXAM: The remainder of the physical exam is noncontributory. GENERAL: Alert, no distress, cooperative, No Distress ABDOMEN: Abdomen soft, non-tender, nondistended AIRWAY: LUNGS: Nonlabored breathing, no audible wheezing CARDIAC: regular rate Assessment/Plan ASA Class: Active Problems: * No active hospital problems. * Resolved Problems: * No resolved hospital problems. * Provisional Diagnosis/Treatment Plan: Plan for Colonoscopy, possibly polypectomy, possible biopsy Risk and benefits discussed with patient Consent obtained SIGNATURE: Tova Orlando MD PATIENT NAME: Mervat Damon DATE: April 09, 2023 TIME: 12:18 PM [facility] SURGICAL PATHOLOGYon 023 CASE REPORT [facility] Comment on above: Order Comment: Speci men Type: TISSUE SPECIMENOrdering Facility: [facility] Address: [facility] [place] [address] Result Comment: Surg ica Pathology Report Case: [id number] Authorizing Provider: Deborah Norman MD Collected: 04/09/2023 01:00 PM Ordering Location: Procedures Received: 04/09/2023 02:35 PM Pathologist: Aries Lynch MD Specimen: ANAL CANAL BIOPSY, polyp Performed By: #### S ####[facility] LABORATORYCLIA [id number] [address] LABCLIA [id number] [address] FINAL DIAGNOSIS Normal [facility] ital Comment on above: Order Comment: Speci men Type: TISSUE SPECIMENOrdering Facility: [facility] Address: [address] [address] Result Comment: A. A nal canal, polyp, biopsy: - Squamous mucosa polyp. Performed By: #### S ####[facility] LABORATORYCLIA [id number] [address] LABCLIA [id number] [address] FINAL PERFORMING LAB Normal [facility] Comment on above: Order Comment: Speci men Type: TISSUE SPECIMENOrdering Facility: [facility] Address: [address] [address] Result Comment: Diag nostic interpretation performed at [facility], [address] [place] [address] CLIA# [id number] Sand Temperer: Aries Lynch M.D. Performed By: #### S ####[facility] LABORATORYCLIA [id number] [address] LABCLIA [id number] [address] GROSS DESCRIPTION Normal [facility] Comment on above: Order Comment: Speci men Type: TISSUE SPECIMENOrdering Facility: [facility] Address: [address] [address] Result Comment: A. A NAL CANAL BIOPSY Received in formalin is one santos-martínez polypoid segment of tissue measuring 0.3 x 0.3 x 0.2 cm. No stalk is present. The line of resection is noted. The specimen is not sectioned and totally submitted in one cassette. Gross examination performed at [facility] [place], [address] [facility] [address] [place] [address] JT 04/09/2023 7:48 PM Performed By: #### S ####[facility] LABORATORYCLIA [id number] [address] [id number] [facility] LABCLIA [id number] [facility] [id number] [address] [facility] Family Medicine Office/Clini c Noteon 04-02-2023 Family Medicine Office/Clinic Note HPI Staff Mervat is a 72 year old male who presents with C/O neck pain. This has been a concern for about 3 weeks. Reports he was initially evaluated at [facility] on 03/18/23, The patient presented with neck pain and cough. The chest x-ray shows concerning for possible pneumonia. The x-ray of the cervical spine shows no fracture no dislocation. More likely his neck pain is due to muscle spasm/strain. The patient was given Toradol Norflex and Percocet in the emergency room and his pain improved. He is not hypoxic. The patient is not tachycardic. He is afebrile. Will discharge patient home with prescription for Zithromax for pneumonia. Will give Coggon and Flexeril for his muscle spasm/strain. He is instructed to return to the emergency room if his pain gets worse, shortness of breath gets worse or any new symptoms. He reports that after his ER visit, he had been taking the medications as directed and pain did improve for a few weeks. Last Saturday, he woke up with a kink in his neck that has progressively gotten worse. Reports he has had very limited ROM in his neck. He has had headaches and dizziness as well. Denies numbness or tingling in his arms/hands. States the pain in his neck feels very similar to when he required cervical infusions in the past which were corrected by Dr. Marcum in 2002 and 2012. He also woke up with severe pain in his left hip yesterday morning. He denies radiation of pain. Describes the pain as numb and tingling. States the pain has caused his leg to give out from under him and as a result, he has been using a walker to ambulate. Denies incontinence of urine or bowels. He has been taking the muscle relaxers and pain medication prescribed to him while he was in the ER for relief as needed. His notes that he has been without his prednisone for about 20 days by accident. History of Present Illness I have reviewed and verified the staff HPI to be accurate for this encounter. Review of Systems PHQ Score Initial Depression Screen Score: 0 Constitutional: no fever, no chills, no sweats, no weakness Respiratory: no shortness of breath, no cough, no orthopnea, no wheezing Cardiovascular: no chest pain, no palpitations, no edema Additional ROS info: Except as noted in the above Review of Systems and in the History of Present Illness all other systems have been reviewed and are negative or noncontributory. Physical Exam Vitals & Measurements T: 36.2 ?C(Temporal Artery) HR: 61(Peripheral) BP: 126/70 SpO2: 96% HT: 74 in HT: 188 cm WT: 100 kg WT: 220 lb BMI: 28.29 General: alert, mild distress Skin: warm, dry Head: no trauma, normocephalic Neck: Trachea midline, moderate tenderness bilateral paraspinous muscle of the neck including the superior border of the trapezius muscle bilaterally more on the right. There is mild tenderness on the right sternocleidomastoid muscle. Limited range of motion of the neck due to the pain. Eye: normal conjunctiva, sclera clear Cardiovascular: regular rate and rhythm Respiratory: Lungs CTA, respirations non labored, breath sounds equal Gastrointestinal: soft, non distended, no tenderness, no guarding Extremities: no deformity, no trauma Neurological: Alert and oriented, motor strength equal & normal bilaterally, sensation equal & normal bilaterally, speech normal, no focal neuro deficits Psychiatric: cooperative, affect appropriate for age, Assessment/Plan 1. Neck pain without injury (M54.2: Cervicalgia) restart the prednisone. I think this is a flare of the RA as he has been off his daily Pred Ordered: predniSONE, 5 mg = 1 tab(s), Oral, Daily, start after taper, # 100 tab(s), Refills(s) 3, Pharmacy: [facility] #[id number], 188, cm, 04/02/23 10:50:00 EDT, Height/Length Dosing, 100, kg, 04/02/23 10:50:00 EDT, Weight Dosing 2. RA - Rheumatoid arthritis (M06.9: Rheumatoid arthritis, unspecified) see #1 Ordered: predniSONE, 5 mg = 1 tab(s), Oral, Daily, start after taper, # 100 tab(s), Refills(s) 3, [facility]acy: [facility] #[id number], 188, cm, 04/02/23 10:50:00 EDT, Height/Length Dosing, 100, kg, 04/02/23 10:50:00 EDT, Weight Dosing 3. Non-ischemic cardiomyopathy (I42.8: Other cardiomyopathies) medically managed Orders: acetaminophen-hydrocodo ne, 1 tab(s), Oral, q6hr as needed for pain, 10 tab(s), Refill(s) 0, [facility] #[id number], 188, cm, 04/02/23 10:50:00 EDT, Height/Length Dosing, 100, kg, 04/02/23 10:50:00 EDT, Weight Dosing methocarbamol, 500 mg = 1 tab(s), Oral, QID, X 7 day(s), # 28 tab(s), Refills(s) 0, Pharmacy: [facility] #[id number], 188, cm, 04/02/23 10:50:00 EDT, Height/Length Dosing, 100, kg, 04/02/23 10:50:00 EDT, Weight Dosing predniSONE, See Instructions, Take 5 tabs po daily x 3 days then Take 4 tabs daily x 3 days then Take 3 tabs daily x 3 days Take 2 tabs daily x 3 days Take 1 tab daily x 3 days, # 45 tab(s), Refills(s) 0, Pharmacy: [facility] #[id number], 188, , 10/24/22 10:33... predniSONE, 0 = 1 -, Oral, As Directed, Take 5 tabs by mouth daily x3 days, 4 daily x3 days, 3 daily x3 (more content not included)... Normal [facility] Comment on above: Result Comment: Elec tronically Signed By: Lorenzo OLSON DO\.br\Date and Time Signed: 04/02/23 11:24 EDT CNPNon 03-26-2023 CNPN Normal [facility] Consultation Noteon 03-21-20 Consultation Note [id number]#[id number] D:127 Normal [facility] CNPNon 03-20-2023 CNPN Normal [facility] CBC W Auto Differential pane l (Bld)on 03-19-2023 Basophils (Bld) [#/Vol] 0.03 10*3/uL Normal <0.11 [facility] Comment on above: Order Comment: Speci men Type: BLOOD SPECIMENOrdering Facility: [facility] Address: [address] [address] Performed By: #### 5 7021-8 ####[facility] LABCLIA [id number] [place] [address] Basophils/100 WBC (Bld) 0.4 % Normal [facility] Comment on above: Order Comment: Speci men Type: BLOOD SPECIMENOrdering Facility: [facility] Address: [address] [address] Performed By: #### 5 7021-8 ####[facility] LABCLIA [id number] [place] [address] Differential cell count method Nom (Bld) Auto Normal [facility] Comment on above: Order Comment: Speci men Type: BLOOD SPECIMENOrdering Facility: [facility] Address: [address] [address] Performed By: #### 5 7021-8 ####[facility] LABCLIA [id number] [place] [address] Eosinophils (Bld) [#/Vol] 0.23 10*3/uL Normal <0.46 [facility] Comment on above: Order Comment: Speci men Type: BLOOD SPECIMENOrdering Facility: [facility] Address: [address] [address] Performed By: #### 5 7021-8 ####[facility] LABCLIA [id number] [place] [address] Eosinophils/100 WBC (Bld) 2.8 % Normal [facility] Comment on above: Order Comment: Speci men Type: BLOOD SPECIMENOrdering Facility: [facility] Address: [address] [place] [address] Performed By: #### 5 7021-8 ####[facility] LABCLIA [id number] [place] [address] Erythrocyte distribution width (RBC) [Ratio] 16.1 % High 11.5-15.0 [facility] Comment on above: Order Comment: Speci men Type: BLOOD SPECIMENOrdering Facility: [facility] Address: [address] [place] [address] Performed By: #### 5 7021-8 ####[facility] LABIA [id number] [place] [address] Hematocrit (Bld) [Volume fraction] 35.0 % Low 39.0-51.0 [facility] Comment on above: Order Comment: Speci men Type: BLOOD SPECIMENOrdering Facility: [facility] Address: [address] [place] [address] Performed By: #### 5 7021-8 ####[facility] LABCLIA [id number] [place] [address] Hemoglobin (Bld) [Mass/Vol] 11.6 g/dL Low 13.0-17.0 [facility] Comment on above: Order Comment: Speci men Type: BLOOD SPECIMENOrdering Facility: [facility] Address: [address] [place] [address] Performed By: #### 5 7021-8 ####[facility] LABIA [id number] [place] [address] Immature granulocytes (Bld) [#/Vol] 0.03 10*3/uL Normal <0.10 [facility] Comment on above: Order Comment: Speci men Type: BLOOD SPECIMENOrdering Facility: [facility] Address: [address] [place] [address] Performed By: #### 5 7021-8 ####[facility] LABIA [id number] [place] [address] Immature granulocytes/100 WBC (Bld) 0.4 % Normal [facility] Comment on above: Order Comment: Speci men Type: BLOOD SPECIMENOrdering Facility: [facility] Address: [address] [place] [address] Performed By: #### 5 7021-8 ####[facility] LABIA [id number] [place] [address] Lymphocytes (Bld) [#/Vol] 0.65 10*3/uL Low 1.00-4.00 [facility] Comment on above: Order Comment: Speci men Type: BLOOD SPECIMENOrdering Facility: [facility] Address: [address] [place] [address] Performed By: #### 5 7021-8 ####[facility] LABIA [id number] [place] [address] Lymphocytes/100 WBC (Bld) 7.9 % Normal [facility] Comment on above: Order Comment: Speci men Type: BLOOD SPECIMENOrdering Facility: [facility] Address: [address] [place] [address] Performed By: #### 5 7021-8 ####[facility] LABCLIA [id number] [place] [address] MCH (RBC) [Entitic mass] 33.5 pg Normal 26.0-34.0 [facility] Comment on above: Order Comment: Speci men Type: BLOOD SPECIMENOrdering Facility: [facility] Address: [address] [place] [address] Performed By: #### 5 7021-8 ####[facility] LABCLIA [id number] [place] [address] MCHC (RBC) [Mass/Vol] 33.1 g/dL Normal 30.5-36.0 [facility] Comment on above: Order Comment: Speci men Type: BLOOD SPECIMENOrdering Facility: [facility] Address: [address] [place] [address] Performed By: #### 5 7021-8 ####[facility] LABCLIA [id number] [place] [address] MCV (RBC) [Entitic vol] 101.2 fL High 80.0-100.0 [facility] Comment on above: Order Comment: Speci men Type: BLOOD SPECIMENOrdering Facility: [facility] Address: [address] [place] [address] Performed By: #### 5 7021-8 ####[facility] LABCLIA [id number] [place] [address] Monocytes (Bld) [#/Vol] 1.41 10*3/uL High <0.87 [facility] Comment on above: Order Comment: Speci men Type: BLOOD SPECIMENOrdering Facility: [facility] Address: [address] [place] [address] Performed By: #### 5 7021-8 ####[facility] LABCLIA [id number] [place] [address] Monocytes/100 WBC (Bld) 17.2 % Normal [facility] Comment on above: Order Comment: Speci men Type: BLOOD SPECIMENOrdering Facility: [facility] Address: [address] [place] [address] Performed By: #### 5 7021-8 ####[facility] LABIA [id number] [place] [address] Neutrophils (Bld) [#/Vol] 5.84 10*3/uL Normal 1.45-7.50 [facility] Comment on above: Order Comment: Speci men Type: BLOOD SPECIMENOrdering Facility: [facility] Address: [address] [address] Performed By: #### 5 7021-8 ####[facility] LABCLIA [id number] [place] [address] Neutrophils/100 WBC (Bld) 71.3 % Normal [facility] Comment on above: Order Comment: Speci men Type: BLOOD SPECIMENOrdering Facility: [facility] Address: [address] [address] Performed By: #### 5 7021-8 ####[facility] LABCLIA [id number] [place] [address] Nucleated RBC (Bld) [#/Vol] 10*3/uL Normal <0.01 [facility] Comment on above: Order Comment: Speci men Type: BLOOD SPECIMENOrdering Facility: [facility] Address: [address] [address] Performed By: #### 5 7021-8 ####[facility] LABCLIA [id number] [place] [address] Nucleated RBC/100 WBC (Bld) [Ratio] 0.0 /100 WBC Normal [facility] Comment on above: Order Comment: Speci men Type: BLOOD SPECIMENOrdering Facility: [facility] Address: [address] [address] Performed By: #### 5 7021-8 ####[facility] LABCLIA [id number] [place] [address] Platelet mean volume (Bld) [Entitic vol] 9.4 fL Normal 9.0-12.7 [facility] Comment on above: Order Comment: Speci men Type: BLOOD SPECIMENOrdering Facility: [facility] Address: [address] [address] Performed By: #### 5 7021-8 ####[facility] LABCLIA [id number] [place] [address] Platelets (Bld) [#/Vol] 171 10*3/uL Normal 150-400 [facility] Comment on above: Order Comment: Speci men Type: BLOOD SPECIMENOrdering Facility: [facility] Address: [address] [place] [address] Performed By: #### 5 7021-8 ####[facility] LABCLIA [id number] [place] [address] RBC (Bld) [#/Vol] 3.46 10*6/uL Low 4.20-6.00 [facility] Comment on above: Order Comment: Speci men Type: BLOOD SPECIMENOrdering Facility: [facility] Address: [address] [place] [address] Performed By: #### 5 7021-8 ####[facility] LABCLIA [id number] [place] [address] WBC (Bld) [#/Vol] 8.19 10*3/uL Normal 3.70-11.00 [facility] Comment on above: Order Comment: Speci men Type: BLOOD SPECIMENOrdering Facility: [facility] Address: [address] [place] [address] Performed By: #### 5 7021-8 ####[facility] LABCLIA [id number] [place] [address] Basophils (Bld) [#/Vol] 0.03 10*3/uL <0.11 k/uL [facility] Basophils/100 WBC (Bld) 0.4 % [facility] Differential cell count method Nom (Bld) Auto [facility] Eosinophils (Bld) [#/Vol] 0.23 10*3/uL <0.46 k/uL [facility] Eosinophils/100 WBC (Bld) 2.8 % [facility] Erythrocyte distribution width (RBC) [Ratio] 16.1 % High 11.5 - 15.0 % [facility] Hematocrit (Bld) [Volume fraction] 35.0 % Low 39.0 - 51.0 % [facility] Hemoglobin (Bld) [Mass/Vol] 11.6 g/dL Low 13.0 - 17.0 g/dL [facility] Immature granulocytes (Bld) [#/Vol] 0.03 10*3/uL <0.10 k/uL [facility] Immature granulocytes/100 WBC (Bld) 0.4 % [facility] Lymphocytes (Bld) [#/Vol] 0.65 10*3/uL Low 1.00 - 4.00 k/uL [facility] Lymphocytes/100 WBC (Bld) 7.9 % [facility] MCH (RBC) [Entitic mass] 33.5 pg 26.0 - 34.0 pg [facility] MCHC (RBC) [Mass/Vol] 33.1 g/dL 30.5 - 36.0 g/dL [facility] MCV (RBC) [Entitic vol] 101.2 fL High 80.0 - 100.0 fL [facility] Monocytes (Bld) [#/Vol] 1.41 10*3/uL High <0.87 k/uL [facility] Monocytes/100 WBC (Bld) 17.2 % [facility] Neutrophils (Bld) [#/Vol] 5.84 10*3/uL 1.45 - 7.50 k/uL [facility] Neutrophils/100 WBC (Bld) 71.3 % [facility] Nucleated RBC (Bld) [#/Vol] <0.01 k/uL [facility] Nucleated RBC/100 WBC (Bld) [Ratio] 0.0 /100 WBC [facility] Platelet mean volume (Bld) [Entitic vol] 9.4 fL 9.0 - 12.7 fL [facility] Platelets (Bld) [#/Vol] 171 10*3/uL 150 - 400 k/uL [facility] RBC (Bld) [#/Vol] 3.46 10*6/uL Low 4.20 - 6.0 0 m/uL [facility] WBC (Bld) [#/Vol] 8.19 10*3/uL 3.70 - 11.00 k/uL [facility] CEA SerPl-mCncon 03-19-2023 Carcinoembryonic Ag [Mass/Vol] 2.0 ng/mL Normal <=2.9 [facility] Comment on above: Order Comment: Speci men Type: BLOOD SPECIMENOrdering Facility: [facility] Address: [address] [place] [phone] Result Comment: Carc inoembryonic antigen test is used as an aid in monitoring response to treatment or recurrence in patients with established colorectal, breast, lung, prostatic, pancreatic, and ovarian carcinomas. Clinical correlation is required.The Carcinoembryonic antigen test was performed using the Korina Mcfarland Unicel DXI paramagnetic particle chemiluminescent immunoassay method. Results obtained with different assay methods or kits cannot be used interchangeably. Performed By: #### 2 039-6 ####[facility] LABCLIA [id number] [address] [place] [id number] [place] CNOVSPon 03-19-2023 CNOVSP Normal [facility] metabolic 2000 panelon 03-19-2023 Albumin [Mass/Vol] 3.6 g/dL Low 3.9 - 4.9 g/dL [facility] ALP [Catalytic activity/Vol] 98 U/L 38 - 113 U/L [facility] ALT [Catalytic activity/Vol] 10 U/L 10 - 54 U/L [facility] Anion gap [Moles/Vol] 10 mmol/L 9 - 18 mmol/L [facility] AST [Catalytic activity/Vol] 18 U/L 14 - 40 U/L [facility] Bilirubin [Mass/Vol] 0.5 mg/dL 0.2 - 1 .3 mg/dL [facility] Calcium [Mass/Vol] 9.3 mg/dL 8.5 - 10. 2 mg/dL [facility] Chloride [Moles/Vol] 102 mmol/L 97 - 10 5 mmol/L [facility] CO2 [Moles/Vol] 26 mmol/L 22 - 30 mmol/L [facility] Creatinine [Mass/Vol] 1.18 mg/dL 0.73 - 1.22 mg/dL [facility] Estimated Glomerular Filtration Rate 66 mL/min/1.73m >=60 mL/min/1.73 m [facility] Glucose [Mass/Vol] 123 mg/dL High 74 - 99 mg/dL [facility] Potassium [Moles/Vol] 3.6 mmol/L Low 3.7 - 5.1 mmol/L [facility] Protein [Mass/Vol] 6.2 g/dL Low 6.3 - 8.0 g/dL [facility] Sodium [Moles/Vol] 138 mmol/L 136 - 144 mmol/L [facility] Urea nitrogen [Mass/Vol] 20 mg/dL 9 - 24 mg/dL [facility] Albumin [Mass/Vol] 3.6 g/dL Low 3.9-4.9 [facility] Comment on above: Order Comment: Speci men Type: BLOOD SPECIMENOrdering Facility: [facility] Address: [address] [place] [address] Performed By: #### 2 4323-8 ####[facility] LABCLIA [id number] [place] [address] ALP [Catalytic activity/Vol] 98 U/L Normal 38-113 [facility] Comment on above: Order Comment: Speci men Type: BLOOD SPECIMENOrdering Facility: [facility] Address: [address] [place] [address] Performed By: #### 2 4323-8 ####[facility] LABCLIA [id number] [place] [address] ALT [Catalytic activity/Vol] 10 U/L Normal 10-54 [facility] Comment on above: Order Comment: Speci men Type: BLOOD SPECIMENOrdering Facility: [facility] Address: [address] [place] [address] Performed By: #### 2 4323-8 ####[facility] LABCLIA [id number] [place] [address] Anion gap [Moles/Vol] 10 mmol/L Normal 9-18 [facility] Comment on above: Order Comment: Speci men Type: BLOOD SPECIMENOrdering Facility: [facility] Address: [address] [place] [address] Performed By: #### 2 4323-8 ####[facility] LABCLIA [id number] [place] [address] AST [Catalytic activity/Vol] 18 U/L Normal 14-40 [facility] Comment on above: Order Comment: Speci men Type: BLOOD SPECIMENOrdering Facility: [facility] Address: [address] [address] Performed By: #### 2 4323-8 ####[facility] LABCLIA [id number] [place] [address] Bilirubin [Mass/Vol] 0.5 mg/dL Normal 0.2-1.3 [facility] Comment on above: Order Comment: Speci men Type: BLOOD SPECIMENOrdering Facility: [facility] Address: [address] [address] Performed By: #### 2 4323-8 ####[facility] LABCLIA [id number] [place] [address] Calcium [Mass/Vol] 9.3 mg/dL Normal 8.5-10.2 [facility] Comment on above: Order Comment: Speci men Type: BLOOD SPECIMENOrdering Facility: [facility] Address: [address] [address] Performed By: #### 2 4323-8 ####[facility] LABCLIA [id number] [place] [address] Chloride [Moles/Vol] 102 mmol/L Normal 97-105 [facility] Comment on above: Order Comment: Speci men Type: BLOOD SPECIMENOrdering Facility: [facility] Address: [address] [address] Performed By: #### 2 4323-8 ####[facility] LABCLIA [id number] [place] [address] CO2 [Moles/Vol] 26 mmol/L Normal 22-30 [facility] Comment on above: Order Comment: Speci men Type: BLOOD SPECIMENOrdering Facility: [facility] Address: [address] [address] Performed By: #### 2 4323-8 ####[facility] LABCLIA [id number] [place] [address] Creatinine [Mass/Vol] 1.18 mg/dL Normal 0.73-1.22 [facility] Comment on above: Order Comment: Nazario brooks Type: BLOOD SPECIMENOrdering Facility: [facility] Address: [address] [phone] Performed By: #### 2 4323-8 ####[facility] LABCLIA [id number] [place] [address] ESTIMATED GLOMERULAR FILTRATION RATE 66 mL/min/1.73m??? Normal >=60 [facility] Comment on above: Order Comment: Nazario brooks Type: BLOOD SPECIMENOrdering Facility: [facility] Address: [address] [address] Result Comment: Rebekah mated Glomerular Filtration Rate (eGFR) is calculated using the 2020 CKD-EPI creatinine equation. This equation utilizes serum creatinine, sex, and age as parameters. The creatinine assay has traceable calibration to isotope dilution-mass spectrometry. Refer to KDIGO guidelines for clinical interpretation. In patients with unstable renal function, e.g. those with acute kidney injury, the eGFR may not accurately reflect actual GFR. Performed By: #### 2 4323-8 ####[facility] LABCLIA [id number] [place] [address] Glucose [Mass/Vol] 123 mg/dL High 74-99 [facility] Comment on above: Order Comment: Nazario todd Type: BLOOD SPECIMENOrdering Facility: [facility] Address: [address] [phone] Result Comment: The [place] Diabetes Association (ADA) provides guidance for cutoff values for fasting glucose and random glucose. The ADA defines fasting as no caloric intake for at least 8 hours. Fasting plasma glucose results between 100 to 125 mg/dL indicate increased risk for diabetes (prediabetes).Fasting plasma glucose results greater than or equal to 126 mg/dL meet the criteria for diagnosis of diabetes. In the absence of unequivocal hyperglycemia, results should be confirmed by repeat testing. In a patient with classic symptoms of hyperglycemia or hyperglycemic crisis, random plasma glucose results greater than or equal to 200 mg/dL meet the criteria for diagnosis of diabetes.Reference: Standards of Medical Care in Diabetes 2016, [place] [employer]. Diabetes Care. 2016.39(Suppl 1). Performed By: #### 2 4323-8 ####[facility] LABCLIA [id number] [place] [address] Potassium [Moles/Vol] 3.6 mmol/L Low 3.7-5.1 [facility] Comment on above: Order Comment: Speci men Type: BLOOD SPECIMENOrdering Facility: [facility] Address: [address] [place] [address] Performed By: #### 2 4323-8 ####[facility] LABCLIA [id number] [place] [address] Protein [Mass/Vol] 6.2 g/dL Low 6.3-8.0 [facility] Comment on above: Order Comment: Speci men Type: BLOOD SPECIMENOrdering Facility: [facility] Address: [address] [place] [address] Performed By: #### 2 4323-8 ####[facility] LABCLIA [id number] [place] [address] Sodium [Moles/Vol] 138 mmol/L Normal 136-144 [facility] Comment on above: Order Comment: Speci men Type: BLOOD SPECIMENOrdering Facility: [facility] Address: [address] [place] [address] Performed By: #### 2 4323-8 ####[facility] LABCLIA [id number] [place] [address] Urea nitrogen [Mass/Vol] 20 mg/dL Normal 9-24 [facility] Comment on above: Order Comment: Speci men Type: BLOOD SPECIMENOrdering Facility: [facility] Address: [address] [place] [address] Performed By: #### 2 4323-8 ####[facility] LABCLIA [id number] [place] [address] Consent for Treatmenton 05-2 Consent for Treatment [id number]#1.00C D:127 Normal [facility] Discharge Instructionson Discharge Instructions [id number]#1.00C D:127 Normal [facility] ED Clinical Summaryon 2022 ED Clinical Summary (Inserted Image. Lary ble to display) [place] [id number] ED Clinical Summary Person Information Name: MERVAT DAMON Bharathi/[facility] Age: 72 Years : 1950 Sex: Male Language: Fijian PCP: Lorenzo OLSON DO Marital Status: Phone: [phone] Visit Id: Visit Reason: Cough; Neck pain; NECK PAIN Speciality: Acuity: 4 Enc Type: Emergency Med Service: Emergency Arrival: 03/18/2023 10:24:33 Discharge: 03/18/2023 13:38:13 LOS: 000 03:14 Checkin: 03/18/2023 10:24:33 Checkout: 03/18/2023 13:38:13 Dispo Type: Home (Routine DC) EVENTS: Event Name Event Status Request Date/Time Start Date/Time Complete Date/Time Arrive Complete 03/18/2023 10:24:33 03/18/2023 10:24:33 03/18/2023 10:24:33 Document Home Meds Request 03/18/2023 10:24:33 Triage Complete 03/18/2023 10:24:33 03/18/2023 10:50:47 03/18/2023 10:50:47 Bed Assign Complete 03/18/2023 11:38:24 03/18/2023 11:38:24 03/18/2023 11:38:24 Dr Exam Complete 03/18/2023 11:38:24 03/18/2023 11:43:38 03/18/2023 11:43:38 RN Exam Complete 03/18/2023 11:38:24 03/18/2023 12:34:32 03/18/2023 12:34:32 Registration Complete 03/18/2023 11:43:38 03/18/2023 11:53:55 03/18/2023 11:53:55 Reg Complete Request 03/18/2023 11:53:55 X-Ray Complete 03/18/2023 11:54:49 03/18/2023 12:13:27 03/18/2023 12:41:34 Meds Admin Complete 03/18/2023 11:56:32 03/18/2023 12:11:35 Wet Read Request 03/18/2023 12:41:34 Discharge Complete 03/18/2023 13:35:01 03/18/2023 13:40:25 03/18/2023 13:40:25 Transfer Complete 03/18/2023 13:40:25 03/18/2023 13:40:25 03/18/2023 13:40:25 ADDRESS: [address] [place] [address] [place] [id number] PHYS DOC NOTES: MEDICAL INFORMATION: Prescriptions Given: New Medications [id number], [address] [place], [place] [id number], [phone] azithromycin (Zithromax 250 mg Tab) 1 Packets By Mouth As Directed for 5 Days. as directed on package labeling. Refills: 0. cyclobenzaprine (cyclobenzaprine 10 mg Tab) 1 Tablets By Mouth 3 times a day as needed for spasm. Refills: 0. Medications to Continue Taking That Have Changed [id number], [address], [place] [id number], [phone] START: acetaminophen-hydrocodo ne (Coggon 325 mg-5 mg oral tablet) 1 Tablets By Mouth every 6 hours as needed as needed for pain. Refills: 0. Other Medications START: acetaminophen-hydrocodo ne (acetaminophen-hydrocod one 325 mg-5 mg oral tablet) Medications to Continue with No Changes Other Medications ascorbic acid (Vitamin C) 1,000 Milligram By Mouth every day. ascorbic acid/chondroitin/glucos a/angelo (Glucosamine Chondroitin) 1500mg/1200mg By Mouth every day. carvedilol (carvedilol 6.25 mg Tab) 1 Tablets By Mouth 2 times a day for 90 Days. Refills: 3. finasteride (finasteride 5 mg Tab) 1 Tablets By Mouth every day for 90 Days. Refills: 3. folic acid (folic acid 1 mg Tab) 1 Tablets By Mouth every day. hydrochlorothiazide (hydrochlorothiazide 12.5 mg Cap) 1 Capsules By Mouth every day for 90 Days. Refills: 3. hydrocortisone topical (hydrocortisone Top 2.5% Crm) ondansetron (ondansetron 8 mg Tab) predniSONE (predniSONE 10 mg Tab) Take 5 tabs by mouth daily x3 days, 4 daily x3 days, 3 daily x3 days, 2 daily x3 days, then 1 tab daily x3 days.. Refills: 0. predniSONE (predniSONE 5 mg Tab) 30 EA, take 1 tablet by mouth once daily. predniSONE (predniSONE 5 mg Tab) Take 5 tabs po daily x 3 days then Take 4 tabs daily x 3 days then Take 3 tabs daily x 3 days Take 2 tabs daily x 3 days Take 1 tab daily x 3 days. Refills: 0. prochlorperazine (prochlorperazine 10 mg Tab) spironolactone (spironolactone 25 mg Tab) 25 Milligram By Mouth every day. Refills: 3. tadalafil (Cialis 20 mg Tab) 1 tab(s) Oral 30-60 mins prior to intercourse. do not exceed 1 tab/24 hrs.; as needed for erectile dysfunction. Refills: 6. tamsulosin (Flomax 0.4 mg Cap) 1 Capsules By Mouth 2 times a day. Refills: 3. valsartan (valsartan 80 mg Tab) 1 Tablets By Mouth every day for 90 Days. Refills: 3. PATIENT EDUCATION INFORMATION: Instructions: Muscle Cramps and Spasms; Community-Acquired Pneumonia, Adult Follow up: With: Address: When: Lorenzo OLSON [facility] [address] [place], [place] [id number] [employer] In 3 days 03/21/2023 Comments: Return to the emergency room if your shortness of breath gets worse, your neck pain gets worse or any new symptoms. Be aware that both Coggon and Flexeril can cause drowsiness. DIAGNOSIS: 1:Pneumonia; 2:Neck muscle spasm Normal [facility] ED Note-Physicianon 03-18-20 ED Note-Physician Basic Information Time Seen: Corrina Rogers Yuridia Walter 03/18/2023 11:43 Chief Complaint has had cough since saturday. 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 The patient states for the past week or so he has been having cough. The patient states last night he was coughing so hard. He woke up this morning with stiff neck. He is complaining of pain in the back of the neck. The patient states that he is not able to turn his neck to the left nor right because of the pain. He rates the pain 8-9 out of 10. The patient denies any history of falling. He denies any weakness on extremities. The patient reports slight shortness of breath. The patient denies any chest pain. Denies any fever, denies any chills. The patient states he has history of cervical fusion as well as rectal cancer. The patient denies any other associated symptoms. Review of Systems Additional ROS info: Except as noted in the above Review of Systems and in the History of Present Illness all other systems have been reviewed and are negative or noncontributory. Physical Exam Vitals & Measurements T: 36.6 ?C(Oral) HR: 69(Peripheral) RR: 18 BP: 142/91 SpO2: 96% HT: 188 cm WT: 111 kg BMI: 31.41 General: alert, mild distress Skin: warm, dry Head: no trauma, normocephalic Neck: Trachea midline, moderate tenderness bilateral paraspinous muscle of the neck including the superior border of the trapezius muscle bilaterally more on the right. There is mild tenderness on the right sternocleidomastoid muscle. Limited range of motion of the neck due to the pain. Eye: normal conjunctiva, sclera clear Cardiovascular: regular rate and rhythm Respiratory: Lungs CTA, respirations non labored, breath sounds equal Gastrointestinal: soft, non distended, no tenderness, no guarding Extremities: no deformity, no trauma Neurological: Alert and oriented, motor strength equal & normal bilaterally, sensation equal & normal bilaterally, speech normal, no focal neuro deficits Psychiatric: cooperative, affect appropriate for age, Medical Decision Making MEDICAL DECISION MAKING Number and Complexity of Problems Differential Diagnosis: [] [facility] Data External documents reviewed: [] My EKG interpretation: [] My CT interpretation: [] My X-ray interpretation: [] My Ultrasound interpretation: [] Decision rules/scores evaluated: [] Discussed with: [] Treatment and Disposition ED Course: The patient presented with neck pain and cough. The chest x-ray shows concerning for possible pneumonia. The x-ray of the cervical spine shows no fracture no dislocation. More likely his neck pain is due to muscle spasm/strain. The patient was given Toradol Norflex and Percocet in the emergency room and his pain improved. He is not hypoxic. The patient is not tachycardic. He is afebrile. Will discharge patient home with prescription for Zithromax for pneumonia. Will give Coggon and Flexeril for his muscle spasm/strain. He is instructed to return to the emergency room if his pain gets worse, shortness of breath gets worse or any new symptoms. Shared decision making: [] Code status: [] Assessment/Plan 1. Pneumonia (J18.9: Pneumonia, unspecified organism) 2. Neck muscle spasm (M62.838: Other muscle spasm) Ordered: acetaminophen-hydrocodo ne, 1 tab(s), Oral, q6hr as needed for pain, 10 tab(s), Refill(s) 0, [facility] #[id number], 188, cm, 03/18/23 10:50:00 EDT, Height/Length Dosing, 111, kg, 03/18/23 10:50:00 EDT, Weight Dosing Orders: acetaminophen-oxycodone , 1 tab(s), Tab, Oral, Once, Stop date 03/18/23 11:55:00 EDT, STAT, Start date 03/18/23 11:55:00 EDT azithromycin, = 1 packet(s), Oral, As Directed, as directed on package labeling, X 5 day(s), # 6 tab(s), Refills(s) 0, Pharmacy: [facility] #[id number], 188, cm, 03/18/23 10:50:00 EDT, Height/Length Dosing, 111, kg, 03/18/23 10:50:00 EDT, Weight Dosing cyclobenzaprine, 10 mg = 1 tab(s), Oral, TID, PRN for spasm, # 20 tab(s), Refills(s) 0, Pharmacy: [facility] #[id number], 188, cm, 03/18/23 10:50:00 EDT, Height/Length Dosing, 111, kg, 03/18/23 10:50:00 EDT, Weight Dosing ketorolac, 30 mg = 1 mL, Injection, IntraMuscular, Once, Stop date 03/18/23 11:55:00 EDT, STAT, Start date 03/18/23 11:55:00 EDT, 03/18/23 11:55:00 EDT orphenadrine, 60 mg = 2 mL, Injection, IntraMuscular, Once, Stop date 03/18/23 11:56:00 EDT, STAT, Start date 03/18/23 11:56:00 EDT, 03/18/23 11:56:00 EDT XR Chest 2 Views XR Spine Cervical 4 or 5 Views Medications Administered Given ketorolac 30 mg/mL Inj 1 mL, 30 mg, IntraMuscular orphenadrine 30 mg/mL Inj, 60 mg, IntraMuscular Percocet 5 mg-325 mg oral tablet, 1 tab(s), Oral Disposition Plan Patient Discharge Condition Stable, improved Discharge Disposition Discharged home Discharge Prescription List Prescriptions cyclobenzaprine 10 mg Tab, 10 mg= 1 tab(s), Oral, TID, PRN Coggon (more content not included)... Normal [facility] Comment on above: Result Comment: Elec tronically Signed By: Corrina Rogers, Yuridia Walter\.grace\Date and Time Signed: 03/18/23 13:36 EDT ED Patient Education Noteon 03-18-2023 ED Patient Education Note Infectious Disease Community-Acquired Pneumonia, Adult Pneumonia is a lung infection that causes inflammation and the buildup of mucus and fluids in the lungs. This may cause coughing and difficulty breathing. Community-acquired pneumonia is pneumonia that develops in people who are not, and have not recently been, in a hospital or other health care facility. Usually, pneumonia develops as a result of an illness that is caused by a virus, such as the common cold and the flu (influenza). It can also be caused by bacteria or fungi. While the common cold and influenza can pass from person to person (are contagious), pneumonia itself is not considered contagious. What are the causes? This condition may be caused by: ? Viruses. ? Bacteria. ? Fungi, such as molds or mushrooms. What increases the risk? The following factors may make you more likely to develop this condition: ? Having certain medical conditions, such as: ? A long-term (chronic) disease, which may include chronic obstructive pulmonary disease (COPD), asthma, heart failure, cystic fibrosis, diabetes, kidney disease, sickle cell disease, and human immunodeficiency virus (HIV). ? A condition that increases the risk of breathing in (aspirating) mucus and other fluids from your mouth and nose. ? A weakened body defense system (immune system). ? Having had your spleen removed (splenectomy). The spleen is the organ that helps fight germs and infections. ? Not cleaning your teeth and gums well (poor dental hygiene). ? Using tobacco products. ? Traveling to places where germs that cause pneumonia are present. ? Being near certain animals, or animal habitats, that have germs that cause pneumonia. ? Being older than 65 years of age. What are the signs or symptoms? Symptoms of this condition include: ? A dry cough or a wet (productive) cough. ? A fever. ? Sweating or chills. ? Chest pain, especially when breathing deeply or coughing. ? Fast breathing, difficulty breathing, or shortness of breath. ? Tiredness (fatigue). ? Muscle aches. How is this diagnosed? This condition may be diagnosed based on your medical history or a physical exam. You may also have tests, including: ? Chest X-rays. ? Tests of the level of oxygen and other gases in your blood. ? Tests of: ? Your blood. ? Mucus from your lungs (sputum). ? Fluid around your lungs (pleural fluid). ? Your urine. If your pneumonia is severe, other tests may be done to learn more about the cause. How is this treated? Treatment for this condition depends on many factors, such as the cause of your pneumonia, your medicines, and other medical conditions that you have. For most adults, pneumonia may be treated at home. In some cases, treatment must happen in a hospital and may include: ? Medicines that are given by mouth (orally) or through an IV, including: ? Antibiotic medicines, if bacteria caused the pneumonia. ? Medicines that kill viruses (antiviral medicines), if a virus caused the pneumonia. ? Oxygen therapy. Severe pneumonia, although rare, may require the following treatments: ? Mechanical ventilation.This procedure uses a machine to help you breathe if you cannot breathe well on your own or maintain a safe level of blood oxygen. ? Thoracentesis. This procedure removes any buildup of pleural fluid to help with breathing. Follow these instructions at home: Medicines ? Take gauz-anj-xfzsrhl and prescription medicines only as told by your health care provider. ? Take cough medicine only if you have trouble sleeping. Cough medicine can prevent your body from removing mucus from your lungs. ? If you were prescribed an antibiotic medicine, take it as told by your health care provider. Do not stop taking the antibiotic even if you start to feel better. Lifestyle ? Do not drink alcohol. ? Do not use any products that contain nicotine or tobacco, such as cigarettes, e-cigarettes, and chewing tobacco. If you need help quitting, ask your health care provider. ? Eat a healthy diet. This includes plenty of vegetables, fruits, whole grains, low-fat dairy products, and lean protein. General instructions ? Rest a lot and get at least 8 hours of sleep each night. ? Sleep in a partly upright position at night. Place a few pillows under your head or sleep in a reclining chair. ? Return to your normal activities as told by your health care provider. Ask your health care provider what activities are safe for you. ? Drink enough fluid to keep your urine pale yellow. This helps to thin the mucus in your lungs. ? If your throat is sore, gargle with a salt?water mixture 3?4 times a day or as needed. To make a salt?water mixture, completely dissolve ??1 tsp (3?6 g) of salt in 1 cup (237 mL) of warm water. ? Keep all (more content not included)... Normal [facility] ED Patient Summaryon 023 ED Patient Summary (Inserted Image. Lary ble to display) [place] [id number] Patient Discharge Instructions Person Information Name: MERVAT DAMON Age: 72 Years Arrival Date: 03/18/2023 10:24:33 Discharge Diagnosis: 1:Pneumonia; 2:Neck muscle spasm Primary Care Physician: Lorenzo OLSON DO Provider Information Primary Provider: Yuridia Houser M.D. Advanced Ship Steward:None The exam and treatment you received in the Emergency Department were for an urgent problem and are not intended as complete care. It is important that you follow up with a doctor, nurse practitioner, or physician?s registered dental assistant rda for ongoing care. If your symptoms become worse or you do not improve as expected and you are unable to reach your usual health care provider, you should return to the Emergency Department. We are available 24 hours a day. MERVAT DAMON has been given the following list of patient education materials, prescriptions and follow-up instructions: Follow-up Instructions: With: Address: When: Lorenzo OLSON [address] [place], [place] [address] Business (1) In 3 days 03/21/2023 Comments: Return to the emergency room if your shortness of breath gets worse, your neck pain gets worse or any new symptoms. Be aware that both Coggon and Flexeril can cause drowsiness. In the event that this physician does not participate in your insurance network, please consult with your insurance company to find a nearby participating provider. Patient Education Materials: Muscle Cramps and Spasms; Community-Acquired Pneumonia, Adult A MESSAGE TO ALL PATIENTS REGARDING OPIOIDS PRESCRIPTION OPIOIDS: WHAT YOU NEED TO KNOW Prescription opioids can be used to help relieve lntoseno-bl-tmjpnf pain and are often prescribed following a surgery or injury, or for certain health conditions. These medications can be an important part of the treatment but also come with serious risks. It is important to work with your healthcare provider to make sure you are getting the safest, most effective care. WHAT ARE THE RISKS AND SIDE EFFECTS OF OPIOID USE? Prescription opioids carry serious risks of addiction and overdose, especially with prolonged use. An opioid overdose, often marked by slowed breathing, can cause sudden . The use of prescription opioids can have a number of side effects as well, even when taken as directed: ? Tolerance?meaning you might need to take more of the medication for the same pain relief ? Physical dependence?meaning you have symptoms of withdrawal when a medication is stopped ? Increased sensitivity to pain ? Constipation ? Nausea, vomiting, and dry mouth ? Sleepiness and dizziness ? Confusion ? Depression ? Low levels of testosterone that can result in lower sex drive, energy, and strength ? Itching and sweating RISKS ARE GREATER WITH: ? History of drug misuse, substance use disorder, or overdose ? Mental health conditions (such as depression or anxiety) ? Sleep apnea ? Older age (65 years and older) ? Avoid alcohol while taking prescription opioids. Also, unless specifically advised by your health care provider, medications to avoid include: ? Benzodiazepines (such as Xanax or Valium) ? Muscle relaxants (such as Soma or Flexeril) ? Hypnotics (such as Ambien or Lunesta) ? Other prescription opioids KNOW YOUR OPTIONS Talk to your health care provider about ways to manage your pain that don?t involve prescription opioids. Some of these options may actually work better and have fewer risks and side effects. Options may include: ? Pain relievers such as acetaminophen, ibuprofen, and naproxen ? Some medication that are also used for depression or seizures ? Physical therapy and exercise ? Cognitive behavioral therapy, a psychological, goal-directed approach, in which patients learn how to modify physical, behavioral, and emotional triggers of pain and stress. IF YOU ARE PRESCRIBED OPIOIDS FOR PAIN: ? Never take opioids in greater amounts or more often than prescribed. ? Follow up with your primary health care provider. o Work together to create a plan on how to manage your pain. o Talk about ways to help manage your pain that don?t involve prescription opioids. o Talk about any and all concerns and side effects. ? Help prevent misuse and abuse o Never sell or share prescription opioids. o Never use another person?s prescription opioids. ? Store prescription opioids in a secure place and out of reach of others (this may include visitors, children, friends, and family). ? Safely dispose of unused prescription opioids: Find your community drug take-back program or your pharmacy mail-back program, or flush them down the toilet, following guidance from the Food and Drug Administration (www.fda.gov/Drugs/Reso urcesForYou). ? Visit www.cdc.gov/drugoverdos e to tyson (more content not included)... Normal [facility] XR Chest 2 Viewson 3 XR Chest 2 Views Exam Date/Time: 03/18/2023 12:41 EDT Reason for Exam: Cough Report IMPRESSION: Patchy opacity versus atelectasis at the left lung base. EXAMINATION: XR Chest 2 Views Clinical History: Cough Comparison: 12/04/2017 RESULT: Patchy opacity versus atelectasis at the left lung base. No large pleural effusion. No pneumothorax. Stable cardiomediastinal silhouette. Right port catheter. Postsurgical changes lower cervical spine. No acute osseous findings. Ordering Provider: Yuridia Houser FINAL REPORT Dictated: 03/18/2023 1:07 pm Vinicius Buchanan MD Signed (Electronic Signature): 03/18/2023 1:07 pm Signed by: Vinicius Buchanan MD Transcribed by: VEENA Technologist: DENTON Technical Comments Radiation Dose: Ka,r in mGy = na DAP = na Normal [facility] XR Spine Cervical 4 or 5 Vie wson 03-18-2023 XR Spine Cervical 4 or 5 Views Exam Date/Time: 03/18/2023 12:40 EDT Reason for Exam: Neck Pain Report IMPRESSION: Postsurgical and degenerative changes of the cervical spine. EXAMINATION/TECHNIQUE: XR Spine Cervical 4 or 5 Views HISTORY: Bilateral neck pain. History of prior surgery. COMPARISON: None RESULT: No evidence for acute fracture. Straightening of the cervical lordosis. Postsurgical changes lower cervical spine. Mild to moderate multilevel degenerative changes with multilevel bony foraminal narrowing throughout the cervical spine. Prevertebral soft tissues unremarkable. Visualized lung apices unremarkable. No other significant abnormality. Ordering Provider: Yuridia Houser FINAL REPORT Dictated: 03/18/2023 1:04 pm Vinicius Buchanan MD. Signed (Electronic Signature): 03/18/2023 1:04 pm Signed by: Vinicius Buchanan MD Transcribed by: VEENA Technologist: DENTON Technical Comments Radiation Dose: Ka,r in mGy = na DAP = na Normal [facility] CNOVon 03-13-2023 CNOV [facility] REFERR[facility] LAB [facility] Normal [facility] Comment on above: Order Comment: Speci men Type: BLOOD SPECIMENOrdering Facility: [facility] Address: [address] [address] Performed By: #### M ISC1 ####[facility] [id number] [address] [place] TEST 1 Common Hereditary Cancer Panel Normal [facility] Comment on above: Order Comment: Speci men Type: BLOOD SPECIMENOrdering Facility: [facility] Address: [address] [place] [address] Performed By: #### M ISC1 ####[facility] [id number] TEST RESULTS 1 View results in Scan jesse Documents link when available. Normal [facility] Comment on above: Order Comment: Speci men Type: BLOOD SPECIMENOrdering Facility: [facility] Address: [address] [place] [address] Performed By: #### M ISC1 ####[facility] [id number] [address] [place] CNPNon 03-07-2023 CNPN Normal [facility] Consultation Noteon 03-06-20 Consultation Note [id number] D:127 Normal [facility] CBC W Auto Differential pane l (Bld)on 03-05-2023 Basophils (Bld) [#/Vol] 0.05 10*3/uL Normal <0.11 [facility] Comment on above: Order Comment: Speci men Type: BLOOD SPECIMENOrdering Facility: [facility] Address: [address] Performed By: #### 5 7021-8 ####[facility] LABCLIA [id number] [place] [address] Basophils/100 WBC (Bld) 0.8 % Normal [facility] Comment on above: Order Comment: Speci men Type: BLOOD SPECIMENOrdering Facility: [facility] Address: [address] [address] Performed By: #### 5 7021-8 ####[facility]CLIA [id number] [place] [address] Differential cell count method Nom (Bld) Auto Normal [facility] Comment on above: Order Comment: Speci men Type: BLOOD SPECIMENOrdering Facility: [facility] Address: [address] [address] Performed By: #### 5 7021-8 ####[facility]CLIA [id number] [place] [address] Eosinophils (Bld) [#/Vol] 0.20 10*3/uL Normal <0.46 [facility] Comment on above: Order Comment: Speci men Type: BLOOD SPECIMENOrdering Facility: [facility] Address: [address] [address] Performed By: #### 5 7021-8 ####[facility] LABCLIA [id number] [place] [address] Eosinophils/100 WBC (Bld) 3.1 % Normal [facility] Comment on above: Order Comment: Speci men Type: BLOOD SPECIMENOrdering Facility: [facility] Address: [address] [address] Performed By: #### 5 7021-8 ####[facility]CLIA [id number] [place] [address] Erythrocyte distribution width (RBC) [Ratio] 16.0 % High 11.5-15.0 [facility] Comment on above: Order Comment: Speci men Type: BLOOD SPECIMENOrdering Facility: [facility] Address: [address] [place] [address] Performed By: #### 5 7021-8 ####[facility]CLIA [id number] [place] [address] Hematocrit (Bld) [Volume fraction] 35.3 % Low 39.0-51.0 [facility] Comment on above: Order Comment: Speci men Type: BLOOD SPECIMENOrdering Facility: [facility] Address: [address] [address] Performed By: #### 5 7021-8 ####[facility] LABIA [id number] [place] [address] Hemoglobin (Bld) [Mass/Vol] 11.7 g/dL Low 13.0-17.0 [facility] Comment on above: Order Comment: Speci men Type: BLOOD SPECIMENOrdering Facility: [facility] Address: [address] [address] Performed By: #### 5 7021-8 ####[facility] LABIA [id number] [place] [address] Immature granulocytes (Bld) [#/Vol] 0.03 10*3/uL Normal <0.10 [facility] Comment on above: Order Comment: Speci men Type: BLOOD SPECIMENOrdering Facility: [facility] Address: [address] [address] Performed By: #### 5 7021-8 ####[facility] LABIA [id number] [place] [address] Immature granulocytes/100 WBC (Bld) 0.5 % Normal [facility] Comment on above: Order Comment: Speci men Type: BLOOD SPECIMENOrdering Facility: [facility] Address: [address] [address] Performed By: #### 5 7021-8 ####[facility] LABIA [id number] [place] [address] Lymphocytes (Bld) [#/Vol] 0.57 10*3/uL Low 1.00-4.00 [facility] Comment on above: Order Comment: Speci men Type: BLOOD SPECIMENOrdering Facility: [facility] Address: [address] [address] Performed By: #### 5 7021-8 ####[facility]CLIA [id number] [place] [address] Lymphocytes/100 WBC (Bld) 8.9 % Normal [facility] Comment on above: Order Comment: Speci men Type: BLOOD SPECIMENOrdering Facility: [facility] Address: [address] [place] [address] Performed By: #### 5 7021-8 ####[facility] LABCLIA [id number] [place] [address] MCH (RBC) [Entitic mass] 34.0 pg Normal 26.0-34.0 [facility] Comment on above: Order Comment: Speci men Type: BLOOD SPECIMENOrdering Facility: [facility] Address: [address] [place] [address] Performed By: #### 5 7021-8 ####[facility] LABCLIA [id number] [place] [address] MCHC (RBC) [Mass/Vol] 33.1 g/dL Normal 30.5-36.0 [facility] Comment on above: Order Comment: Speci men Type: BLOOD SPECIMENOrdering Facility: [facility] Address: [address] [place] [address] Performed By: #### 5 7021-8 ####[facility] LABCLIA [id number] [place] [address] MCV (RBC) [Entitic vol] 102.6 fL High 80.0-100.0 [facility] Comment on above: Order Comment: Speci men Type: BLOOD SPECIMENOrdering Facility: [facility] Address: [address] [place] [address] Performed By: #### 5 7021-8 ####[facility] LABCLIA [id number] [place] [address] Monocytes (Bld) [#/Vol] 0.95 10*3/uL High <0.87 [facility] Comment on above: Order Comment: Speci men Type: BLOOD SPECIMENOrdering Facility: [facility] Address: [address] [address] Performed By: #### 5 7021-8 ####[facility] LABCLIA [id number] [place] [address] Monocytes/100 WBC (Bld) 14.9 % Normal [facility] Comment on above: Order Comment: Speci men Type: BLOOD SPECIMENOrdering Facility: [facility] Address: [address] [address] Performed By: #### 5 7021-8 ####[facility] LABCLIA [id number] [place] [address] Neutrophils (Bld) [#/Vol] 4.57 10*3/uL Normal 1.45-7.50 [facility] Comment on above: Order Comment: Speci men Type: BLOOD SPECIMENOrdering Facility: [facility] Address: [address] [address] Performed By: #### 5 7021-8 ####[facility] LABIA [id number] [place] [address] Neutrophils/100 WBC (Bld) 71.8 % Normal [facility] Comment on above: Order Comment: Speci men Type: BLOOD SPECIMENOrdering Facility: [facility] Address: [address] [place] [address] Performed By: #### 5 7021-8 ####[facility] LABCLIA [id number] [place] [address] Nucleated RBC (Bld) [#/Vol] 10*3/uL Normal <0.01 [facility] Comment on above: Order Comment: Speci men Type: BLOOD SPECIMENOrdering Facility: [facility] Address: [address] [place] [address] Performed By: #### 5 7021-8 ####[facility] LABCLIA [id number] [place] [address] Nucleated RBC/100 WBC (Bld) [Ratio] 0.0 /100 WBC Normal [facility] Comment on above: Order Comment: Speci men Type: BLOOD SPECIMENOrdering Facility: [facility] Address: [address] [place] [address] Performed By: #### 5 7021-8 ####[facility] LABCLIA [id number] [place] [address] Platelet mean volume (Bld) [Entitic vol] 9.9 fL Normal 9.0-12.7 [facility] Comment on above: Order Comment: Speci men Type: BLOOD SPECIMENOrdering Facility: [facility] Address: [address] [place] [address] Performed By: #### 5 7021-8 ####[facility] LABIA [id number] [place] [address] Platelets (Bld) [#/Vol] 137 10*3/uL Low 150-400 [facility] Comment on above: Order Comment: Speci men Type: BLOOD SPECIMENOrdering Facility: [facility] Address: [address] [place] [address] Performed By: #### 5 7021-8 ####[facility] LABCLIA [id number] [place] [address] RBC (Bld) [#/Vol] 3.44 10*6/uL Low 4.20-6.00 [facility] Comment on above: Order Comment: Speci men Type: BLOOD SPECIMENOrdering Facility: [facility] Address: [address] [place] [address] Performed By: #### 5 7021-8 ####[facility] LABIA [id number] [place] [address] WBC (Bld) [#/Vol] 6.37 10*3/uL Normal 3.70-11.00 [facility] Comment on above: Order Comment: Speci men Type: BLOOD SPECIMENOrdering Facility: [facility] Address: [address] [address] Performed By: #### 5 7021-8 ####[facility] LABCLIA [id number] [place] [address] CEA SerPl-mCncon 03-05-2023 Carcinoembryonic Ag [Mass/Vol] 2.1 ng/mL Normal <=2.9 [facility] Comment on above: Order Comment: Speci men Type: BLOOD SPECIMENOrdering Facility: [facility] Address: [address] [address] Result Comment: Carc inoembryonic antigen test is used as an aid in monitoring response to treatment or recurrence in patients with established colorectal, breast, lung, prostatic, pancreatic, and ovarian carcinomas. Clinical correlation is required.The Carcinoembryonic antigen test was performed using the [employer] DXI paramagnetic particle chemiluminescent immunoassay method. Results obtained with different assay methods or kits cannot be used interchangeably. Performed By: #### 2 039-6 ####[facility] LABCLIA [id number] [place] [address] [place] CNOVSPon 03-05-2023 CNOVSP Normal [facility] Comprehensive metabolic 2000 panelon 03-05-2023 Albumin [Mass/Vol] 3.8 g/dL Low 3.9-4.9 [facility] Comment on above: Order Comment: Speci men Type: BLOOD SPECIMENOrdering Facility: [facility] Address: [address] [address] Performed By: #### 2 4323-8 ####[facility] LABCLIA [id number] [place] [address] ALP [Catalytic activity/Vol] 113 U/L Normal 38-113 [facility] Comment on above: Order Comment: Speci men Type: BLOOD SPECIMENOrdering Facility: [facility] Address: [address] [address] Performed By: #### 2 4323-8 ####[facility] LABCLIA [id number] [place] [address] ALT [Catalytic activity/Vol] 9 U/L Low 10-54 [facility] Comment on above: Order Comment: Speci men Type: BLOOD SPECIMENOrdering Facility: [facility] Address: [address] [place] [address] Performed By: #### 2 4323-8 ####[facility] LABCLIA [id number] [place] [address] Anion gap [Moles/Vol] 9 mmol/L Normal 9-18 [facility] Comment on above: Order Comment: Speci men Type: BLOOD SPECIMENOrdering Facility: [facility] Address: [address] [place] [address] Performed By: #### 2 4323-8 ####[facility] LABCLIA [id number] [place] [address] AST [Catalytic activity/Vol] 14 U/L Normal 14-40 [facility] Comment on above: Order Comment: Speci men Type: BLOOD SPECIMENOrdering Facility: [facility] Address: [address] [place] [address] Performed By: #### 2 4323-8 ####[facility] LABCLIA [id number] [place] [address] Bilirubin [Mass/Vol] 0.4 mg/dL Normal 0.2-1.3 [facility] Comment on above: Order Comment: Speci men Type: BLOOD SPECIMENOrdering Facility: [facility] Address: [address] [place] [address] Performed By: #### 2 4323-8 ####[facility] LABCLIA [id number] [place] [address] Calcium [Mass/Vol] 9.1 mg/dL Normal 8.5-10.2 [facility] Comment on above: Order Comment: Speci men Type: BLOOD SPECIMENOrdering Facility: [facility] Address: [address] [address] Performed By: #### 2 4323-8 ####[facility] LABCLIA [id number] [place] [address] Chloride [Moles/Vol] 106 mmol/L High 97-105 [facility] Comment on above: Order Comment: Speci men Type: BLOOD SPECIMENOrdering Facility: [facility] Address: [address] [place] [address] Performed By: #### 2 4323-8 ####[facility] LABCLIA [id number] [place] [address] CO2 [Moles/Vol] 27 mmol/L Normal 22-30 [facility] Comment on above: Order Comment: Speci men Type: BLOOD SPECIMENOrdering Facility: [facility] Address: [address] [place] [address] Performed By: #### 2 4323-8 ####[facility] LABCLIA [id number] [place] [address] Creatinine [Mass/Vol] 1.16 mg/dL Normal 0.73-1.22 [facility] Comment on above: Order Comment: Speci men Type: BLOOD SPECIMENOrdering Facility: [facility] Address: [address] [place] [address] Performed By: #### 2 4323-8 ####[facility] LABCLIA [id number] [place] [address] ESTIMATED GLOMERULAR FILTRATION RATE 68 mL/min/1.73m??? Normal >=60 [facility] Comment on above: Order Comment: Speci men Type: BLOOD SPECIMENOrdering Facility: [facility] Address: [address] [place] [address] Result Comment: Rebekah mated Glomerular Filtration Rate (eGFR) is calculated using the 2020 CKD-EPI creatinine equation. This equation utilizes serum creatinine, sex, and age as parameters. The creatinine assay has traceable calibration to isotope dilution-mass spectrometry. Refer to KDIGO guidelines for clinical interpretation. In patients with unstable renal function, e.g. those with acute kidney injury, the eGFR may not accurately reflect actual GFR. Performed By: #### 2 4323-8 ####[facility] LABCLIA [id number] [place] [address] Glucose [Mass/Vol] 102 mg/dL High 74-99 [facility] Comment on above: Order Comment: Nazario brooks Type: BLOOD SPECIMENOrdering Facility: [facility] Address: [address] [place], [place] [address] Result Comment: The [place] Diabetes Association (ADA) provides guidance for cutoff values for fasting glucose and random glucose. The ADA defines fasting as no caloric intake for at least 8 hours. Fasting plasma glucose results between 100 to 125 mg/dL indicate increased risk for diabetes (prediabetes).Fasting plasma glucose results greater than or equal to 126 mg/dL meet the criteria for diagnosis of diabetes. In the absence of unequivocal hyperglycemia, results should be confirmed by repeat testing. In a patient with classic symptoms of hyperglycemia or hyperglycemic crisis, random plasma glucose results greater than or equal to 200 mg/dL meet the criteria for diagnosis of diabetes.Reference: Standards of Medical Care in Diabetes 2016, [place] Diabetes Association. Diabetes Care. 2016.39(Suppl 1). Performed By: #### 2 4323-8 ####[facility] LABCLIA [id number] [place] [address] Potassium [Moles/Vol] 3.4 mmol/L Low 3.7-5.1 [facility] Comment on above: Order Comment: Nazario brooks Type: BLOOD SPECIMENOrdering Facility: [facility] Address: [address] [place] [address] Performed By: #### 2 4323-8 ####[facility] LABCLIA [id number] [place] [address] Protein [Mass/Vol] 6.3 g/dL Normal 6.3-8.0 [facility] Comment on above: Order Comment: Nazario brooks Type: BLOOD SPECIMENOrdering Facility: [facility] Address: [address] [place], [place] [address] Performed By: #### 2 4323-8 ####[facility] LABCLIA [id number] [place] [address] Sodium [Moles/Vol] 142 mmol/L Normal 136-144 [facility] Comment on above: Order Comment: Speci men Type: BLOOD SPECIMENOrdering Facility: [facility] Address: [address] [address] Performed By: #### 2 4323-8 ####[facility] LABCLIA [id number] [place] [address] Urea nitrogen [Mass/Vol] 19 mg/dL Normal 9-24 [facility] Comment on above: Order Comment: Speci men Type: BLOOD SPECIMENOrdering Facility: [facility] Address: [address] [address] Performed By: #### 2 4323-8 ####[facility] LABIA [id number] [place] [address] CNPNon 03-01-2023 CNPN Normal [facility] CNPNon 02-26-2023 CNPN Normal [facility] Consultation Noteon 02-21-20 Consultation Note [id number]#1.00C D:127 Normal [facility] CBC W Auto Differential pane l (Bld)on 02-19-2023 Basophils (Bld) [#/Vol] 0.03 10*3/uL Normal <0.11 [facility] Comment on above: Order Comment: Speci men Type: BLOOD SPECIMENOrdering Facility: [facility] Address: [address] [address] Performed By: #### 5 7021-8 ####[facility] LABIA [id number] [place] [address] Basophils/100 WBC (Bld) 0.5 % Normal [facility] Comment on above: Order Comment: Speci men Type: BLOOD SPECIMENOrdering Facility: [facility] Address: [address] [place] [address] Performed By: #### 5 7021-8 ####[facility] LABCLIA [id number] [place] [address] Differential cell count method Nom (Bld) Auto Normal [facility] Comment on above: Order Comment: Speci men Type: BLOOD SPECIMENOrdering Facility: [facility] Address: [address] [place] [address] Performed By: #### 5 7021-8 ####[facility] LABCLIA [id number] [place] [address] Eosinophils (Bld) [#/Vol] 0.13 10*3/uL Normal <0.46 [facility] Comment on above: Order Comment: Speci men Type: BLOOD SPECIMENOrdering Facility: [facility] Address: [address] [place] [address] Performed By: #### 5 7021-8 ####[facility] LABCLIA [id number] [place] [address] Eosinophils/100 WBC (Bld) 2.1 % Normal [facility] Comment on above: Order Comment: Speci men Type: BLOOD SPECIMENOrdering Facility: [facility] Address: [address] [place] [address] Performed By: #### 5 7021-8 ####[facility] LABCLIA [id number] [place] [address] Erythrocyte distribution width (RBC) [Ratio] 15.8 % High 11.5-15.0 [facility] Comment on above: Order Comment: Speci men Type: BLOOD SPECIMENOrdering Facility: [facility] Address: [address] [place] [address] Performed By: #### 5 7021-8 ####[facility] LABCLIA [id number] [place] [address] Hematocrit (Bld) [Volume fraction] 35.5 % Low 39.0-51.0 [facility] Comment on above: Order Comment: Speci men Type: BLOOD SPECIMENOrdering Facility: [facility] Address: [address] [place] [address] Performed By: #### 5 7021-8 ####[facility] LABCLIA [id number] [place] [address] Hemoglobin (Bld) [Mass/Vol] 11.8 g/dL Low 13.0-17.0 [facility] Comment on above: Order Comment: Speci men Type: BLOOD SPECIMENOrdering Facility: [facility] Address: [address] [place] [address] Performed By: #### 5 7021-8 ####[facility] LABCLIA [id number] [place] [address] Immature granulocytes (Bld) [#/Vol] 0.03 10*3/uL Normal <0.10 [facility] Comment on above: Order Comment: Speci men Type: BLOOD SPECIMENOrdering Facility: [facility] Address: [address] [place] [address] Performed By: #### 5 7021-8 ####[facility] LABCLIA [id number] [place] [address] Immature granulocytes/100 WBC (Bld) 0.5 % Normal [facility] Comment on above: Order Comment: Speci men Type: BLOOD SPECIMENOrdering Facility: [facility] Address: [address] [place] [address] Performed By: #### 5 7021-8 ####[facility] LABCLIA [id number] [place] [address] Lymphocytes (Bld) [#/Vol] 0.67 10*3/uL Low 1.00-4.00 [facility] Comment on above: Order Comment: Speci men Type: BLOOD SPECIMENOrdering Facility: [facility] Address: [address] [place] [address] Performed By: #### 5 7021-8 ####[facility] LABCLIA [id number] [place] [address] Lymphocytes/100 WBC (Bld) 10.8 % Normal [facility] Comment on above: Order Comment: Speci men Type: BLOOD SPECIMENOrdering Facility: [facility] Address: [address] [place] [address] Performed By: #### 5 7021-8 ####[facility] LABCLIA [id number] [place] [address] MCH (RBC) [Entitic mass] 34.0 pg Normal 26.0-34.0 [facility] Comment on above: Order Comment: Speci men Type: BLOOD SPECIMENOrdering Facility: [facility] Address: [address] [place] [address] Performed By: #### 5 7021-8 ####[facility] LABIA [id number] [place] [address] MCHC (RBC) [Mass/Vol] 33.2 g/dL Normal 30.5-36.0 [facility] Comment on above: Order Comment: Speci men Type: BLOOD SPECIMENOrdering Facility: [facility] Address: [address] [place] [address] Performed By: #### 5 7021-8 ####[facility] LABCLIA [id number] [place] [address] MCV (RBC) [Entitic vol] 102.3 fL High 80.0-100.0 [facility] Comment on above: Order Comment: Speci men Type: BLOOD SPECIMENOrdering Facility: [facility] Address: [address] [place] [address] Performed By: #### 5 7021-8 ####[facility] LABIA [id number] [place] [address] Monocytes (Bld) [#/Vol] 0.95 10*3/uL High <0.87 [facility] Comment on above: Order Comment: Speci men Type: BLOOD SPECIMENOrdering Facility: [facility] Address: [address] [place] [address] Performed By: #### 5 7021-8 ####[facility] LABCLIA [id number] [place] [address] Monocytes/100 WBC (Bld) 15.3 % Normal [facility] Comment on above: Order Comment: Speci men Type: BLOOD SPECIMENOrdering Facility: [facility] Address: [address] [address] Performed By: #### 5 7021-8 ####[facility] LABCLIA [id number] [place] [address] Neutrophils (Bld) [#/Vol] 4.40 10*3/uL Normal 1.45-7.50 [facility] Comment on above: Order Comment: Speci men Type: BLOOD SPECIMENOrdering Facility: [facility] Address: [address] [address] Performed By: #### 5 7021-8 ####[facility] LABCLIA [id number] [place] [address] Neutrophils/100 WBC (Bld) 70.8 % Normal [facility] Comment on above: Order Comment: Speci men Type: BLOOD SPECIMENOrdering Facility: [facility] Address: [address] Performed By: #### 5 7021-8 ####[facility] LABCLIA [id number] [place] [address] Nucleated RBC (Bld) [#/Vol] 10*3/uL Normal <0.01 [facility] Comment on above: Order Comment: Speci men Type: BLOOD SPECIMENOrdering Facility: [facility] Address: [address] Performed By: #### 5 7021-8 ####[facility] LABCLIA [id number] [place] [address] Nucleated RBC/100 WBC (Bld) [Ratio] 0.0 /100 WBC Normal [facility] Comment on above: Order Comment: Speci men Type: BLOOD SPECIMENOrdering Facility: [facility] Address: [address] [place] [address] Performed By: #### 5 7021-8 ####[facility] LABCLIA [id number] [place] [address] Platelet mean volume (Bld) [Entitic vol] 9.6 fL Normal 9.0-12.7 [facility] Comment on above: Order Comment: Speci men Type: BLOOD SPECIMENOrdering Facility: [facility] Address: [address] [place] [address] Performed By: #### 5 7021-8 ####[facility] LABIA [id number] [place] [address] Platelets (Bld) [#/Vol] 186 10*3/uL Normal 150-400 [facility] Comment on above: Order Comment: Speci men Type: BLOOD SPECIMENOrdering Facility: [facility] Address: [address] [place] [address] Performed By: #### 5 7021-8 ####[facility] LABCLIA [id number] [place] [address] RBC (Bld) [#/Vol] 3.47 10*6/uL Low 4.20-6.00 [facility] Comment on above: Order Comment: Speci men Type: BLOOD SPECIMENOrdering Facility: [facility] Address: [address] [place] [address] Performed By: #### 5 7021-8 ####[facility] LABCLIA [id number] [place] [address] WBC (Bld) [#/Vol] 6.21 10*3/uL Normal 3.70-11.00 [facility] Comment on above: Order Comment: Speci men Type: BLOOD SPECIMENOrdering Facility: [facility] Address: [place] [address] Performed By: #### 5 7021-8 ####[facility] LABCLIA [id number] [place] [address] Basophils (Bld) [#/Vol] 0.03 10*3/uL <0.11 k/uL [facility] Basophils/100 WBC (Bld) 0.5 % [facility] Differential cell count method Nom (Bld) Auto [facility] Eosinophils (Bld) [#/Vol] 0.13 10*3/uL <0.46 k/uL [facility] Eosinophils/100 WBC (Bld) 2.1 % [facility] Erythrocyte distribution width (RBC) [Ratio] 15.8 % High 11.5 - 15.0 % [facility] Hematocrit (Bld) [Volume fraction] 35.5 % Low 39.0 - 51.0 % [facility] Hemoglobin (Bld) [Mass/Vol] 11.8 g/dL Low 13.0 - 17.0 g/dL [facility] Immature granulocytes (Bld) [#/Vol] 0.03 10*3/uL <0.10 k/uL [facility] Immature granulocytes/100 WBC (Bld) 0.5 % [facility] Lymphocytes (Bld) [#/Vol] 0.67 10*3/uL Low 1.00 - 4.00 k/uL [facility] Lymphocytes/100 WBC (Bld) 10.8 % [facility] MCH (RBC) [Entitic mass] 34.0 pg 26.0 - 34.0 pg [facility] MCHC (RBC) [Mass/Vol] 33.2 g/dL 30.5 - 36.0 g/dL [facility] MCV (RBC) [Entitic vol] 102.3 fL High 80.0 - 100.0 fL [facility] Monocytes (Bld) [#/Vol] 0.95 10*3/uL High <0.87 k/uL [facility] Monocytes/100 WBC (Bld) 15.3 % [facility] Neutrophils (Bld) [#/Vol] 4.40 10*3/uL 1.45 - 7.50 k/uL [facility] Neutrophils/100 WBC (Bld) 70.8 % [facility] Nucleated RBC (Bld) [#/Vol] <0.01 k/uL [facility] Nucleated RBC/100 WBC (Bld) [Ratio] 0.0 /100 WBC [facility] Platelet mean volume (Bld) [Entitic vol] 9.6 fL 9.0 - 12.7 fL [facility] Platelets (Bld) [#/Vol] 186 10*3/uL 150 - 400 k/uL [facility] RBC (Bld) [#/Vol] 3.47 10*6/uL Low 4.20 - 6.0 0 m/uL [facility] WBC (Bld) [#/Vol] 6.21 10*3/uL 3.70 - 11.00 k/uL [facility] CNOVSPon 02-19-2023 CNOVSP Normal [facility] Comprehensive metabolic 2000 panelon 02-19-2023 Albumin [Mass/Vol] 3.6 g/dL Low 3.9-4.9 [facility] Comment on above: Order Comment: Speci men Type: BLOOD SPECIMENOrdering Facility: [facility] Address: [address] [address] Performed By: #### 2 4323-8 ####[facility] LABIA [id number] [place] [address] ALP [Catalytic activity/Vol] 118 U/L High 38-113 [facility] Comment on above: Order Comment: Speci men Type: BLOOD SPECIMENOrdering Facility: [facility] Address: [address] [address] Performed By: #### 2 4323-8 ####[facility] LABCLIA [id number] [place] [address] ALT [Catalytic activity/Vol] 10 U/L Normal 10-54 [facility] Comment on above: Order Comment: Speci men Type: BLOOD SPECIMENOrdering Facility: [facility] Address: [address] [address] Performed By: #### 2 4323-8 ####[facility] LABCLIA [id number] [place] [address] Anion gap [Moles/Vol] 7 mmol/L Low 9-18 [facility] Comment on above: Order Comment: Speci men Type: BLOOD SPECIMENOrdering Facility: [facility] Address: [address] [place] [address] Performed By: #### 2 4323-8 ####[facility] LABCLIA [id number] [place] [address] AST [Catalytic activity/Vol] 14 U/L Normal 14-40 [facility] Comment on above: Order Comment: Speci men Type: BLOOD SPECIMENOrdering Facility: [facility] Address: [address] [place] [address] Performed By: #### 2 4323-8 ####[facility] LABCLIA [id number] [place] [address] Bilirubin [Mass/Vol] 0.4 mg/dL Normal 0.2-1.3 [facility] Comment on above: Order Comment: Speci men Type: BLOOD SPECIMENOrdering Facility: [facility] Address: [address] [place] [address] Performed By: #### 2 4323-8 ####[facility] LABCLIA [id number] [place] [address] Calcium [Mass/Vol] 9.2 mg/dL Normal 8.5-10.2 [facility] Comment on above: Order Comment: Speci men Type: BLOOD SPECIMENOrdering Facility: [facility] Address: [address] [place] [address] Performed By: #### 2 4323-8 ####[facility] LABCLIA [id number] [place] [address] Chloride [Moles/Vol] 105 mmol/L Normal 97-105 [facility] Comment on above: Order Comment: Speci men Type: BLOOD SPECIMENOrdering Facility: [facility] Address: [address] [address] Performed By: #### 2 4323-8 ####[facility] LABCLIA [id number] [place] [address] CO2 [Moles/Vol] 28 mmol/L Normal 22-30 [facility] Comment on above: Order Comment: Speci men Type: BLOOD SPECIMENOrdering Facility: [facility] Address: [address] [address] Performed By: #### 2 4323-8 ####[facility] LABCLIA [id number] [place] [address] Creatinine [Mass/Vol] 1.11 mg/dL Normal 0.73-1.22 [facility] Comment on above: Order Comment: Speci men Type: BLOOD SPECIMENOrdering Facility: [facility] Address: [address] [place] [address] Performed By: #### 2 4323-8 ####[facility] LABCLIA [id number] [place] [address] ESTIMATED GLOMERULAR FILTRATION RATE 71 mL/min/1.73m??? Normal >=60 [facility] Comment on above: Order Comment: Speci men Type: BLOOD SPECIMENOrdering Facility: [facility] Address: [address] [place] [address] Result Comment: Rebekah mated Glomerular Filtration Rate (eGFR) is calculated using the 2020 CKD-EPI creatinine equation. This equation utilizes serum creatinine, sex, and age as parameters. The creatinine assay has traceable calibration to isotope dilution-mass spectrometry. Refer to KDIGO guidelines for clinical interpretation. In patients with unstable renal function, e.g. those with acute kidney injury, the eGFR may not accurately reflect actual GFR. Performed By: #### 2 4323-8 ####[facility] LABCLIA [id number] [place] [address] Glucose [Mass/Vol] 89 mg/dL Normal 74-99 [facility] Comment on above: Order Comment: Speci men Type: BLOOD SPECIMENOrdering Facility: [facility] Address: [address] Result Comment: The [place] Diabetes [employer] (ADA) provides guidance for cutoff values for fasting glucose and random glucose. The ADA defines fasting as no caloric intake for at least 8 hours. Fasting plasma glucose results between 100 to 125 mg/dL indicate increased risk for diabetes (prediabetes).Fasting plasma glucose results greater than or equal to 126 mg/dL meet the criteria for diagnosis of diabetes. In the absence of unequivocal hyperglycemia, results should be confirmed by repeat testing. In a patient with classic symptoms of hyperglycemia or hyperglycemic crisis, random plasma glucose results greater than or equal to 200 mg/dL meet the criteria for diagnosis of diabetes.Reference: Standards of Medical Care in Diabetes 2016, [place] [employer]. Diabetes Care. 2016.39(Suppl 1). Performed By: #### 2 4323-8 ####[facility] LABCLIA [id number] [place] [address] Potassium [Moles/Vol] 3.9 mmol/L Normal 3.7-5.1 [facility] Comment on above: Order Comment: Speci men Type: BLOOD SPECIMENOrdering Facility: [facility] Address: [address] [address] Performed By: #### 2 4323-8 ####[facility] LABCLIA [id number] [place] [address] Protein [Mass/Vol] 6.0 g/dL Low 6.3-8.0 [facility] Comment on above: Order Comment: Speci men Type: BLOOD SPECIMENOrdering Facility: [facility] Address: [address] Performed By: #### 2 4323-8 ####[facility] LABCLIA [id number] [place] [address] Sodium [Moles/Vol] 140 mmol/L Normal 136-144 [facility] Comment on above: Order Comment: Speci men Type: BLOOD SPECIMENOrdering Facility: [facility] Address: [address] [place] [address] Performed By: #### 2 4323-8 ####[facility] LABCLIA [id number] [place] [address] Urea nitrogen [Mass/Vol] 14 mg/dL Normal 9-24 [facility] Comment on above: Order Comment: Speci men Type: BLOOD SPECIMENOrdering Facility: [facility] Address: [place] [address] Performed By: #### 2 4323-8 ####[facility] LABCLIA [id number] [place] [address] Albumin [Mass/Vol] 3.6 g/dL Low 3.9 - 4.9 g/dL [facility] [place] ALP [Catalytic activity/Vol] 118 U/L High 38 - 113 U/L [facility] ALT [Catalytic activity/Vol] 10 U/L 10 - 54 U/L [facility] Anion gap [Moles/Vol] 7 mmol/L Low 9 - 18 mmol/L [facility] AST [Catalytic activity/Vol] 14 U/L 14 - 40 U/L [facility] Bilirubin [Mass/Vol] 0.4 mg/dL 0.2 - 1 .3 mg/dL [facility] Calcium [Mass/Vol] 9.2 mg/dL 8.5 - 10. 2 mg/dL [facility] Chloride [Moles/Vol] 105 mmol/L 97 - 10 5 mmol/L [facility] CO2 [Moles/Vol] 28 mmol/L 22 - 30 mmol/L [facility] Creatinine [Mass/Vol] 1.11 mg/dL 0.73 - 1.22 mg/dL [facility] Estimated Glomerular Filtration Rate 71 mL/min/1.73m >=60 mL/min/1.73 m [facility] Glucose [Mass/Vol] 89 mg/dL 74 - 99 mg/dL [facility] Potassium [Moles/Vol] 3.9 mmol/L 3.7 - 5.1 mmol/L [facility] Protein [Mass/Vol] 6.0 g/dL Low 6.3 - 8.0 g/dL [facility] Sodium [Moles/Vol] 140 mmol/L 136 - 144 mmol/L [facility] Urea nitrogen [Mass/Vol] 14 mg/dL 9 - 24 mg/dL [facility] CNOVon 02-07-2023 CNOV Normal [facility] CNPNon 02-07-2023 CNPN Normal [facility] Consultation Noteon 02-07-20 Consultation Note [id number]#[id number] D:127 Normal [facility] CBC W Auto Differential pane l (Bld)on 02-05-2023 Basophils (Bld) [#/Vol] 0.04 10*3/uL Normal <0.11 [facility] Comment on above: Order Comment: Speci men Type: BLOOD SPECIMENOrdering Facility: [facility] Address: [address] [place] [address] Performed By: #### 5 7021-8 ####[facility] LABCLIA [id number] [place] [address] Basophils/100 WBC (Bld) 0.8 % Normal [facility] Comment on above: Order Comment: Speci men Type: BLOOD SPECIMENOrdering Facility: [facility] Address: [address] [place] [address] Performed By: #### 5 7021-8 ####[facility] LABCLIA [id number] [place] [address] Differential cell count method Nom (Bld) Auto Normal [facility] Comment on above: Order Comment: Speci men Type: BLOOD SPECIMENOrdering Facility: [facility] Address: [address] [address] Performed By: #### 5 7021-8 ####[facility] LABCLIA [id number] [place] [address] Eosinophils (Bld) [#/Vol] 0.19 10*3/uL Normal <0.46 [facility] Comment on above: Order Comment: Speci men Type: BLOOD SPECIMENOrdering Facility: [facility] Address: [address] [place] [address] Performed By: #### 5 7021-8 ####[facility] LABCLIA [id number] [place] [address] Eosinophils/100 WBC (Bld) 3.8 % Normal [facility] Comment on above: Order Comment: Speci men Type: BLOOD SPECIMENOrdering Facility: [facility] Address: [address] [place] [address] Performed By: #### 5 7021-8 ####[facility] LABCLIA [id number] [place] [address] Erythrocyte distribution width (RBC) [Ratio] 15.9 % High 11.5-15.0 [facility] Comment on above: Order Comment: Speci men Type: BLOOD SPECIMENOrdering Facility: [facility] Address: [address] [place] [address] Performed By: #### 5 7021-8 ####[facility] LABCLIA [id number] [place] [address] Hematocrit (Bld) [Volume fraction] 35.5 % Low 39.0-51.0 [facility] Comment on above: Order Comment: Speci men Type: BLOOD SPECIMENOrdering Facility: [facility] Address: [address] [place] [address] Performed By: #### 5 7021-8 ####[facility] LABCLIA [id number] [place] [address] Hemoglobin (Bld) [Mass/Vol] 11.8 g/dL Low 13.0-17.0 [facility] Comment on above: Order Comment: Speci men Type: BLOOD SPECIMENOrdering Facility: [facility] Address: [address] [place] [address] Performed By: #### 5 7021-8 ####[facility] LABCLIA [id number] [place] [address] Immature granulocytes (Bld) [#/Vol] 10*3/uL Normal <0.10 [facility] Comment on above: Order Comment: Speci men Type: BLOOD SPECIMENOrdering Facility: [facility] Address: [address] [place] [address] Performed By: #### 5 7021-8 ####[facility] LABCLIA [id number] [place] [address] Immature granulocytes/100 WBC (Bld) 0.2 % Normal [facility] Comment on above: Order Comment: Speci men Type: BLOOD SPECIMENOrdering Facility: [facility] Address: [address] [place] [address] Performed By: #### 5 7021-8 ####[facility] LABCLIA [id number] [place] [address] Lymphocytes (Bld) [#/Vol] 0.49 10*3/uL Low 1.00-4.00 [facility] Comment on above: Order Comment: Speci men Type: BLOOD SPECIMENOrdering Facility: [facility] Address: [address] [place] [address] Performed By: #### 5 7021-8 ####[facility] LABIA [id number] [place] [address] Lymphocytes/100 WBC (Bld) 9.7 % Normal [facility] Comment on above: Order Comment: Speci men Type: BLOOD SPECIMENOrdering Facility: [facility] Address: [address] [place] [address] Performed By: #### 5 7021-8 ####[facility] LABCLIA [id number] [place] [address] MCH (RBC) [Entitic mass] 34.4 pg High 26.0-34.0 [facility] Comment on above: Order Comment: Speci men Type: BLOOD SPECIMENOrdering Facility: [facility] Address: [address] [place] [address] Performed By: #### 5 7021-8 ####[facility] LABCLIA [id number] [place] [address] MCHC (RBC) [Mass/Vol] 33.2 g/dL Normal 30.5-36.0 [facility] Comment on above: Order Comment: Speci men Type: BLOOD SPECIMENOrdering Facility: [facility] Address: [address] [place] [address] Performed By: #### 5 7021-8 ####[facility] LABIA [id number] [place] [address] MCV (RBC) [Entitic vol] 103.5 fL High 80.0-100.0 [facility] Comment on above: Order Comment: Speci men Type: BLOOD SPECIMENOrdering Facility: [facility] Address: [address] [place] [address] Performed By: #### 5 7021-8 ####[facility] LABIA [id number] [place] [address] Monocytes (Bld) [#/Vol] 0.62 10*3/uL Normal <0.87 [facility] Comment on above: Order Comment: Speci men Type: BLOOD SPECIMENOrdering Facility: [facility] Address: [address] [place] [address] Performed By: #### 5 7021-8 ####[facility] LABIA [id number] [place] [address] Monocytes/100 WBC (Bld) 12.3 % Normal [facility] Comment on above: Order Comment: Speci men Type: BLOOD SPECIMENOrdering Facility: [facility] Address: [address] [place] [address] Performed By: #### 5 7021-8 ####[facility] LABIA [id number] [place] [address] Neutrophils (Bld) [#/Vol] 3.70 10*3/uL Normal 1.45-7.50 [facility] Comment on above: Order Comment: Speci men Type: BLOOD SPECIMENOrdering Facility: [facility] Address: [address] [place] [address] Performed By: #### 5 7021-8 ####[facility] LABCLIA [id number] [place] [address] Neutrophils/100 WBC (Bld) 73.2 % Normal [facility] Comment on above: Order Comment: Speci men Type: BLOOD SPECIMENOrdering Facility: [facility] Address: [address] [place] [address] Performed By: #### 5 7021-8 ####[facility] LABCLIA [id number] [place] [address] Nucleated RBC (Bld) [#/Vol] 10*3/uL Normal <0.01 [facility] Comment on above: Order Comment: Speci men Type: BLOOD SPECIMENOrdering Facility: [facility] Address: [address] [place] [address] Performed By: #### 5 7021-8 ####[facility] LABCLIA [id number] [place] [address] Nucleated RBC/100 WBC (Bld) [Ratio] 0.0 /100 WBC Normal [facility] Comment on above: Order Comment: Speci men Type: BLOOD SPECIMENOrdering Facility: [facility] Address: [address] [place] [address] Performed By: #### 5 7021-8 ####[facility] LABCLIA [id number] [place] [address] Platelet mean volume (Bld) [Entitic vol] 9.4 fL Normal 9.0-12.7 [facility] Comment on above: Order Comment: Speci men Type: BLOOD SPECIMENOrdering Facility: [facility] Address: [address] [place] [address] Performed By: #### 5 7021-8 ####[facility] LABCLIA [id number] [place] [address] Platelets (Bld) [#/Vol] 162 10*3/uL Normal 150-400 [facility] Comment on above: Order Comment: Speci men Type: BLOOD SPECIMENOrdering Facility: [facility] Address: [address] [place] [address] Performed By: #### 5 7021-8 ####[facility] LABIA [id number] [place] [address] RBC (Bld) [#/Vol] 3.43 10*6/uL Low 4.20-6.00 [facility] Comment on above: Order Comment: Speci men Type: BLOOD SPECIMENOrdering Facility: [facility] Address: [address] [place] [address] Performed By: #### 5 7021-8 ####[facility] LABIA [id number] [place] [address] WBC (Bld) [#/Vol] 5.05 10*3/uL Normal 3.70-11.00 [facility] Comment on above: Order Comment: Speci men Type: BLOOD SPECIMENOrdering Facility: [facility] Address: [address] [place] [address] Performed By: #### 5 7021-8 ####[facility] LABIA [id number] [place] [address] CNOVSPon 02-05-2023 CNOVSP Normal [facility] Coding Summary.on 02-05-2023 Coding Summary. CD:[id number] Ww+ PGhlYWQ+KP3UJRCvH25hpKJ klK0uP4LBKZdJZnslHPXNVZ zSBtUpyzYqKE9haDMbGUKx IC8+IX2jJVPjUzjdzTAwm1E 1vCL5I31qql1rMIxggSU0HP PwJeZzwaeyb1maqHa4KUduZ mluOyBt INNioD37QFQ3uQ04Et01yHR koUKuh7xprPx9ShFdZDMcDQ U1jNpoUIkqk2FkCOIjY62du IYzd0E1 BBFtvKnrwDAiAvXaqON6yI2 uYTceagezv5ltjzllKte4nu 71tECzy2T9xEB1G7AjhzP2U GJvbGQg NfbupYWTqV9jrmqhq6cortl lEeGgGDPlMEe5GVj2FAQkuZ gkXkMrUG23UZE2HNBbepEsF 2FsLWFs lZmyEqI9w1V5Sr0MA8PXErt sC5FHSKAEZObmjCR+PC90cj 81Y5YdAtzgDvz6YKCdVSE2b DZ2nD4l RNOhENmkx5S6mMJ1U8QufgQ ipu1xb5nkJHRlRKcqS72wkW Njl4V5OOHesMQ4PCMzjVnqC iBzaG93 Oyc+FXEmjKqzl4DnImlxl8a cd6cpxHb8BzlqGINwosBxeR thTUS6m8VqEs0yBBPykMR2o JY7uG2w BcWiHiT8ESdfZ741WvGbvMH fAjjyZ65oK9AjfAP+PHRyPj y5RPKixPlrRE8pP2AkAJEca mctbGVm aQkhPX5fZYJhwddgQMPjwP7 uBPFgJ6v5MsGmTfW9ARhzE7 PwEDVuwihjKu27eA3eXcNlG mL0JLaa U1HlhwL2PKVgdGMqKTmxGRF 4S69sb8H6HSXqDQVwWZG0pL G8uT3kxYhfmfwvuSPixHhbd mVydGlj ITorMLgaU003EDHdzNcsFuF vZGluZyBEYXRlOiAgMDQvMT gvMjAyMzwvdGQ+OTKmQUV9e WxlPSAn uFCbBGceXg5kpWltiWhdRD4 rWUSplhvtUWIepT9aHFDltK TexVptRV4rIAOrvdhwe172Z iAxMHB0 CMEgbMDgC0AkiX0bTaKqHEZ nQRXsT5RwuCSbXPzhS971VG noWbF7QFAuwaCcF8YwENStg WduOiB0 y2G6Cd5Hb5MoanllY9DewXZ rLnFzPnfiXRi7B0IsGhdyqX I+GB29PQAjDA27GCd7KTQ2e WxlPSdi CDDiO5XuyV7qAdTfPRBpKYN kOyc+PHRhYmxlIHdpZHRoPS ipBRRbOyFmnFggKS3iMq7kR GVyLWNv nBlfoZUyTtTxe0rtUXKiJWi dTS0moOsbZ1FwtLI3JDDfb2 g2Wo60P49qS1KkxSL+PGNvb HC4xAV5 qU1oIkYfTwF9ZOtyF608SzZ rxDJbBgupw9wmp8cwsRx4Fy F8BFOnusJoyZyuGQI1w2DyV a81V58c IHdpZHRoPSIxNSUiIHZhbGl nxo2pfQ4kVd5+HBZqtMA1uY S2tT0qTkDlArS7GLccC616I nRvcCIv Qbyzp5pbn4ccxSf8AzKaOGV gwtXesUwbITI4a2CoZz75X3 SgsAspj2OmXdq1jf24rSExy 7F1xDN3 V4PfRRUrkcpmwAUfyFjfKE7 jINXjvwqjMVQvkO7wBWNtY7 o3RpYpGeC9KZxiV8LiqoS2L GJvbGQg PQHlpIMBwB6itbjoz8sggge jWbCvAPGnUQr1YOh2XXWjwS twKbNdZUE2CcI5RIT0fJIxx T2jzInc bbyjtV8rUyd+VPN3oKZxmNF JKD2jZghszKU+OBJnDPI4rS yrAIumOEKvqF0pKWIfF4s7V iAwLjA1 HRnaN4ChuoF7DXLzaJYoAVY dzEAIzB0sklilu3vtgvrsGk BzXEMlMHw1RBv4OHVnoHvnI iBsZWZ0 WlC3QXS6hHQvhX6weLhxuvg xhI8aEai+SshdsDxfNDW2WK w5T8ShAsr0GYYieNckPV1zr GFkZGlu Ib4osSfyqRlfTH1cPJJtyep bh428JiLxk8ktGQUooYXyHN mtELL9Q50ii8O1SRRuEPUfH UX0lQX7 iZ2dyTrnztuflUOhhIaczwY fyUspJDpuBWazV025IZIgtW yjCcXnWPv3D6DyBsc8WDPol NrqIB1y cVHoWDycLk4rqRjtqAnmYH8 gLQVskucxe342VaFqr8brEJ XsiBRzCIouMGN7C28ks9P3M CMwMDAw WAR2oAL7dS8cgBcrnmwomKC mdDsgdmVydGljYWwtYWxpZ2 13BXQcjGvuKgCzsFp5W8BuZ qy4CZNf hOhsRB7fmVXsOMleWn3rbLz owSdwMT5wQMIvccodq370Gb Epa0efSUJrtRBpQEltXXS6J 98ck8D4 GKUnFHFwBDD4eJW1mM2clVc nbjogbGVmdDsgdmVydGljYW jaAXfqY714YDFdiVmkIcQkm GllbnQg XTwlLSf6I0FqTlurvCO+PC9 3IIKuWZ60vIRxsZNlg3pouJ l5ZgEqGZDcVIF6rGndMCbbb 3JkZXIt R75hlKJnl9H1PZDspLdacXQ mTtSphWZ9aQ9wARmzevepn5 gmfrsbCrysy7gpqs26lM46S 29sIHdp ZHRoPSIzMCUiIHZhbGlnbj0 hbI2qMe3+ZJMlaYU0oMQ8hT 9rHGMeHsR5LSapW873DoYgx CIvPjxj x1ipr5pznMd2LiU8LJMngzM nrYbwHUT1b2KrAk36J10sIE dpZHRoPSIyMCUiIHZhbGlnb k4klI2t Ii8+VWMhvZU7gZO6xZ4aPwA nNqL5YCoaS540TyEeeNYoIk uuL87gO0PtnHF+LBFcSqz5K CBzdHls UF8mzKNuJWvuEd4kVML7FtD rScHbJQroZ3QgDMMbfenqct eccLW7RPJdUQGskW81Aq3ud DogMTBw yGEFmH0ygcgic3njracnSiW mKWMyCJk5UAq6JUIrbGgnIu BfART1WwV9MQF6aYXeyF0at Glnbjog qA3aA6WxWFZdqhoyOa71hP4 xZnHcWcJ9ZRdlVle+V0FTSU 9AZEvwMA1TK9wCGVorYLdtx GQ+PHRk TCU7cOyfLTmhPWVgpF7lUUU sV7b3NbZcBkZ0HGvcU3NlAC ZsjwxrRd05wJ9qZtQtSnP5M PvwB5No ovK3ZRZyeXZsUAjpWXD2X52 hn2H2XVQhTORsXSX2yOM5bV 1hbGlnbjogbGVmdDsgdmVyd GljYWwt GTaiC698WCXixTmnBpBpTwQ 7XzM0ZEA3O4YwWqg7GICoeC ixXC8npRIpOVwoEk2djDrzh OigOQ9s AOWgeperDMOkuV4qGDNjjUS goChnBV0cDUGscqygl273Sf HwNFW6BMIloFEcZ7YsvC3gG iAjMDAw XKSmF9UoaOFeQAekI493RQv rKuM1KKYbsuBkT9UmUGShbA ryUyZ9y8O0Qx02HLNVJJZos zwvdGQ+ HJEiTFB2oRfbWIcsOMMhbB7 yMKOoK7r6NwYcKuP3HWixL0 DoWTRbszsyDs73hF5hTmLmE lQ1XFzm J7FvlnT5HTHvtRVdBPavEHL 9B60bn6R5WJFuJHJwVOB1dE X2hW9dxYrtfyezhQKtpElpq mVydGlj FIsbNLlzB878TPVjbHuhIq7 ujZM7N0UoKmp6HCEspXseGH 9ksGOrXBgsTw4fqWtncWufP G9pBIEv tvhgEYEruH0qEMTwvHAwzOt oMW9yZGLirumlk647NvPlSH F5QOCnrJDlM6VicF6tFyVgH DAwMDAw I8XzaFJfCYkuI363FFfnEcL 6OWMdocUbI2AyVUSkfLgkQk G4r4S0Fy9CaYIuUMIbJU23Y I48LT92 H0PsLyqaeNYumKM+PHRhYmx lIHdpZHRoPScxMDAlJyBzdH idOB6qOs1pCNBvZFQiyPvtt HNlOiBj f0wxMQAbTCfaWO8gvBctI1P lcIN2WQSce3u5Nl70L71oJ4 JvdXA+ITVqzSF9wRI4oH9pY zAlIiB2 IUhfG766KvAmzPEyBlbqj5s tt5gwgQy0GfWfGQNbwiPsaY qnAMR0y9VuSv74F48wXCnaB HRoPSIy VEYlTLSltDyrlu6nfW5aZl4 +ZXVnkXO9aOJ9iX8qYgBdWx J4SIxqB744RlPmdMPkIfotL 17rQ1Nt dXA+JNPlMic8RFJoqBkmAF0 erCJkUNzpSz8aJBI0DbDmFc YtAVdiD8AcXELzblodhesas YA2XUCw CDQpbE14Vn9vaRcmPk3kMHV aFPJ2PCAdeJWxH2DwfC9mCw XrCFDiFVAhP0WkfOEsSKrzB 246IGxl TwM7XMUpbxDoO3CcSRCpcNx oVnJ7x3D3Wl0AaLuchJFrKU 9eFhBhIAj8I1SqHti0NOLkh FxtBM7b oZYvFByrCu0hdSisqJdcMF6 bBYOolhndf502CtDdw4uxBZ SnjNOiDLibPJE3U95cb7M5D CMwMDAw WHK8kXA9oH3seWzwmgmzkUY mdDsgdmVydGljYWwtYWxpZ2 28YDKzwCwbKrGGRee5W9BfV xq2LTCr wWxzRK2qqNEoZGsoGu4kkAz qvEujNL2rVPXehztdj071Gh Lpc2jgDBMziBNlSXuoQUZ5M 55nu1E1 YWNnDXKdZNI2tCU4rK9ovBa nbjogbGVmdDsgdmVydGljYW hpUXgtU858IEAhvPmlGn4LC ts1H8Es Pio1YBJhiGncNV8hsDXlUHu kYg0aqNzpeLuoXO5qHGRqpo yja574AjEsu7njDVFacGDwL GltZXM7 P08bp4Q0KKTfCIQoHDZ8aJC 8pL5xcEwposlxxYDiiFixas AnoInbGJkkXHkkZ643CIOfq DsnPlBh eWVyOjwvdGQ+DW30ia97I2N pOhneZnf5ZRQvYRD7hYO3uR 3bFCLvUOwig6Y2pBD7I1Exu iCmqs4o j0zvXHKv (more content not included)... Normal [facility] Comprehensive metabolic 2000 panelon 04-18-2023 Albumin [Mass/Vol] 3.7 g/dL Low 3.9-4.9 [facility] Comment on above: Order Comment: Speci men Type: BLOOD SPECIMENOrdering Facility: [facility] Address: [address] [place] [address] Performed By: #### 2 4323-8 ####[facility] LABCLIA [id number] [place] [address] ALP [Catalytic activity/Vol] 105 U/L Normal 38-113 [facility] Comment on above: Order Comment: Speci men Type: BLOOD SPECIMENOrdering Facility: [facility] Address: [address] [place] [address] Performed By: #### 2 4323-8 ####[facility] LABCLIA [id number] [place] [address] ALT [Catalytic activity/Vol] 11 U/L Normal 10-54 [facility] Comment on above: Order Comment: Speci men Type: BLOOD SPECIMENOrdering Facility: [facility] Address: [address] [place] [address] Performed By: #### 2 4323-8 ####[facility] LABCLIA [id number] [place] [address] Anion gap [Moles/Vol] 10 mmol/L Normal 9-18 [facility] Comment on above: Order Comment: Speci men Type: BLOOD SPECIMENOrdering Facility: [facility] Address: [address] [place] [address] Performed By: #### 2 4323-8 ####[facility] LABCLIA [id number] [place] [address] AST [Catalytic activity/Vol] 14 U/L Normal 14-40 [facility] Comment on above: Order Comment: Speci men Type: BLOOD SPECIMENOrdering Facility: [facility] Address: [address] [place] [address] Performed By: #### 2 4323-8 ####[facility] LABCLIA [id number] [place] [address] Bilirubin [Mass/Vol] 0.8 mg/dL Normal 0.2-1.3 [facility] Comment on above: Order Comment: Speci men Type: BLOOD SPECIMENOrdering Facility: [facility] Address: [address] [place] [address] Performed By: #### 2 4323-8 ####[facility] LABCLIA [id number] [place] [address] Calcium [Mass/Vol] 9.2 mg/dL Normal 8.5-10.2 [facility] Comment on above: Order Comment: Speci men Type: BLOOD SPECIMENOrdering Facility: [facility] Address: [address] [place] [address] Performed By: #### 2 4323-8 ####[facility] LABCLIA [id number] [place] [address] Chloride [Moles/Vol] 107 mmol/L High 97-105 [facility] Comment on above: Order Comment: Speci men Type: BLOOD SPECIMENOrdering Facility: [facility] Address: [address] [place] [address] Performed By: #### 2 4323-8 ####[facility] LABCLIA [id number] [place] [address] CO2 [Moles/Vol] 24 mmol/L Normal 22-30 [facility] Comment on above: Order Comment: Speci men Type: BLOOD SPECIMENOrdering Facility: [facility] Address: [address] [place] [address] Performed By: #### 2 4323-8 ####[facility] LABCLIA [id number] [place] [address] Creatinine [Mass/Vol] 1.10 mg/dL Normal 0.73-1.22 [facility] Comment on above: Order Comment: Speci men Type: BLOOD SPECIMENOrdering Facility: [facility] Address: [place] [address] Performed By: #### 2 4323-8 ####[facility] LABCLIA [id number] [place] [address] ESTIMATED GLOMERULAR FILTRATION RATE 72 mL/min/1.73m??? Normal >=60 [facility] Comment on above: Order Comment: Nazario brooks Type: BLOOD SPECIMENOrdering Facility: [facility] Address: [address] [place] [address] Result Comment: Rebekah mated Glomerular Filtration Rate (eGFR) is calculated using the 2020 CKD-EPI creatinine equation. This equation utilizes serum creatinine, sex, and age as parameters. The creatinine assay has traceable calibration to isotope dilution-mass spectrometry. Refer to KDIGO guidelines for clinical interpretation. In patients with unstable renal function, e.g. those with acute kidney injury, the eGFR may not accurately reflect actual GFR. Performed By: #### 2 4323-8 ####[facility] LABCLIA [id number] [place] [address] Glucose [Mass/Vol] 108 mg/dL High 74-99 [facility] Comment on above: Order Comment: Nazario brooks Type: BLOOD SPECIMENOrdering Facility: [facility] Address: [address] [place] [address] Result Comment: The [place] [employer] (ADA) provides guidance for cutoff values for fasting glucose and random glucose. The ADA defines fasting as no caloric intake for at least 8 hours. Fasting plasma glucose results between 100 to 125 mg/dL indicate increased risk for diabetes (prediabetes).Fasting plasma glucose results greater than or equal to 126 mg/dL meet the criteria for diagnosis of diabetes. In the absence of unequivocal hyperglycemia, results should be confirmed by repeat testing. In a patient with classic symptoms of hyperglycemia or hyperglycemic crisis, random plasma glucose results greater than or equal to 200 mg/dL meet the criteria for diagnosis of diabetes.Reference: Standards of Medical Care in Diabetes 2016, [place] [employer]. Diabetes Care. 2016.39(Suppl 1). Performed By: #### 2 4323-8 ####[facility] LABCLIA [id number] [place] [address] Potassium [Moles/Vol] 3.4 mmol/L Low 3.7-5.1 [facility] Comment on above: Order Comment: Speci men Type: BLOOD SPECIMENOrdering Facility: [facility] Address: [address] [place] [address] Performed By: #### 2 4323-8 ####[facility] LABIA [id number] [place] [address] Protein [Mass/Vol] 5.9 g/dL Low 6.3-8.0 [facility] Comment on above: Order Comment: Speci men Type: BLOOD SPECIMENOrdering Facility: [facility] Address: [address] [place] [address] Performed By: #### 2 4323-8 ####[facility] [id number] [place] [address] Sodium [Moles/Vol] 141 mmol/L Normal 136-144 [facility] Comment on above: Order Comment: Speci men Type: BLOOD SPECIMENOrdering Facility: [facility] Address: [address] [place] [address] Performed By: #### 2 4323-8 ####[facility] LABIA [id number] [place] [address] Urea nitrogen [Mass/Vol] 18 mg/dL Normal 9-24 [facility] Comment on above: Order Comment: Speci men Type: BLOOD SPECIMENOrdering Facility: [facility] Address: [address] [place] [address] Performed By: #### 2 4323-8 ####[facility] LABIA [id number] [place] [address] CNOVon 02-04-2023 CNOV Normal [facility] Physician Orderon 02-01-2023 Physician Order [id number] CD:127 Normal [facility] Coding Summary.on 01-31-2023 Coding Summary. CD:[id number] Ww+ PGhlYWQ+JH1SFPRaM77qxNO dqW1gP4EOGUjACywbYBWNSR kESiDhxnTyIP8tdDIfCFAz IC8+VI5iZHJuPvojcVAok6M 6cJJ3C70tcm9rNLmozSY3PL LbQeIgelfkj1xnuGb3AAyqC mluOyBt OCNhjJ39FIB4rN90Et87hPR okQTyo4xgjEf7PsOgBGArBF N1qOrnIZgwr1RhRUQrQ36io BKez6F5 GZFlnRjzmYJmLvQdqKQ1cV1 jRGanehmjv3zixvrhGyg3tu 32iQJxb9X7uJW0K1VbkmY3Q GJvbGQg AzdzaTOHsR2qyubfp4dxffq rUiUtHUStMCv0WSj3HARsaZ fhUvLyGD79ZTT0VHVuyqUjY 2FsLWFs eZbsRsL2x6M2Ta8SC3WQQrf uN9SRIKXYYPjxbTQ+PC90cj 86B2SiEfxwIxt9IGZnRRD1e JP1vG0n DDMaYRair6K6kIO3D9IarmD bvi5xo0fdJTTaATrfV39bkH Kbj6Y0MXHokFY3EDJsjNztT iBzaG93 Oyc+OYRrzWmdg0UzClfty8u lu1aewAz8ZyhjSBIxugGnuX csVZP9n1FfOf3qEVHhxMA3c ND2aO3f KsNnXdM5OBcmU140YxGzyLI cBasaT80cA1IukXS+PHRyPj c5IZKmxCpkZC2uN9OaLFQzm mctbGVm eHsgAU4qCZVcybmpDETffQ4 eEHCbV4y6BiHzFjR0PGrlA4 EjIOKbxumuLu51cR3rOkChW zV7EZld Z1QtawP4ZHMxmLPjJSzsGSD 9Y83tt3K2DVSiRDAlYPE0cD K4aI6dcXysseofhHVsoXqxb mVydGlj VPxeZSysO443GOVuyBsvQsY vZGluZyBEYXRlOiAgMDQvMT MvMjAyMzwvdGQ+SVVyYEQ2b WxlPSAn oXGrSYhwPl5aeZeldBrjFK0 jWPNgnfkkDVZqcJ8uYTHkyV CroChkNF3wPGUhdvghd614V iAxMHB0 FVNslRVuB4TgrR6fBnChKFO hJNDiC9IuvDHnSAxhW201KF ijYwV9QBThdcVjA1VtIJMwo WduOiB0 y2M3Jp7Ck1ZbuwbpT7CmmYE hLaEsTkdtGAp3N4QbZdyiqP I+SA83GCDlBB11NSd6BRZ3v WxlPSdi IDLkA6MenQ0pNiTfHQOvNAJ kOyc+PHRhYmxlIHdpZHRoPS skMCSjNiBozHfpEW1iVu0mU GVyLWNv bAmhaKHbMuBmm6brJUEzBNh mQZ2njQdsO3MbkKM1EBWyp9 j8Ja95B34bV6UfaPN+PGNvb HY6tMI0 wX4aCfNzTtW5RDuyK691UvP huRXiBkeep6shp7ezsIe9Ju J0YBTydcChlHpmODD8e2CnY d17S63w IHdpZHRoPSIxNSUiIHZhbGl luz6dmJ1nIh1+ICTsjMI6nN L1uA1pKaAmJfT0ESzbM610E nRvcCIv Wfcwu9saa6amrBb9ImNrZMY uftUqoKbhCHL5x4FaRp35L1 UgrQgia0BjNxj6rj23hDNbl 6Y4kTV6 J5ToNYWjsimzeTIssDmjUG5 qPNTzqeqrAOUwyY9wNLIzI8 u4CmZjGgC3WJieL1BhemP9P GJvbGQg HVNtoGAVpK8efxpat8pklyd aYcHpNUYnGEv8UNm9SNHhhC uhXwXsSCY1DlR4MVT3oQJpm G7byAex omqacN3xKpg+UIR5mBIzpNT UTX9pBytdzDK+ISMpEPW3hB jhDJxxKMXqiH8hSYRgA0j3E iAwLjA1 RXljO2QaxyH5IXSsjLTbEXE nfQODcF6njxrqs0qygyohXp KhZHQhBAf3VIp1LYFrxWynH iBsZWZ0 DfF7YIP3jWPnpA1ofEmktuv lqB7uErt+VptqcOzbJBR1FW i7L7KeDbr0ROBesUwrJE9iu GFkZGlu Ov1qaOdkbPqkFB4gJLTyyfw rt587AeLov0yrYYAblBKyPT zvXRD4S89wl9O6QBPvGFCuV DZ7gTI3 xB2cmGezivhesKHjuZknvwJ dbPamGGapKWtaG343QPKdqN bgIvPrNTt5L7NfBdz1JLRnk XxeMD7p iQJaFZnuVk5ofMsbkElxYR4 vRXFkvvpsl280AtEiu6poJJ NvuAKuXHccQTO4B52tj8D1H CMwMDAw WOW5tPD6uX4ypFbiwuvvmTZ mdDsgdmVydGljYWwtYWxpZ2 11QBHyhUonGyQqxIq2M1EpA pz4GAVy bWzaBN9wsBPmADrmXp9qpMs yiFvlYI3pFDPrbgpyt697Gr Aig1nxHFRtnMKbULckWBS5F 70bd0Y3 KJVhCVZtCWQ7wOM1zU8qqGe nbjogbGVmdDsgdmVydGljYW svHKmoY814WQYpwXzhRhJox GllbnQg EKdaDEa5S6BcGrzooFP+PC9 7XIZdXE75cPZwxSOgz2tbvY u9HyEyFRLgFZY3kIbnDQtkj 3JkZXIt P79eoVPet3P8OAOhwNfyxIB iCrBpaVI5hT5fBAngpeogv1 sxauzvXkmrb7biep65gZ18N 29sIHdp ZHRoPSIzMCUiIHZhbGlnbj0 lxU3qFq0+YPBhhGL6mST7cV 5jXOYjAvJ5HAnbB864UeOko CIvPjxj s1uzi4nwrCz7NxQ9RSWdcaW njUgpDQT6x3BwMv18K72jIQ dpZHRoPSIyMCUiIHZhbGlnb k7koG4h Ii8+PQRpxTK6aPB7aB5iFyI cAnH7WUsvD794QmRryPCiVa geZ07oI3ScyQA+USZrSwj4S CBzdHls XG7edQWfJVweGy6yFVG4IbF mBfYoXUnzB3JiGAQdkyofls bwcFJ9IILnJBRocU25Hd6zw DogMTBw vNUPbW0hhfnsd0vbznwgAdI dDKYxBFt8WMf4TMMqhRtuHr ZkPDC0GnZ1EPB5yVHhuW8aq Glnbjog aN0kN8IxTYDxdbxhOr83hM6 jBtInRzO0ZEttZwf+V0FTSU 2GDNcmPH2WX1vSJUqcXUglp GQ+PHRk XFI8qEyeEXtsUHOidB1bMMB jR3r1EnMcBuS4JEivN7SfCK RojdniRl13tM2mZqCwAkY6A OnnO1Sl poC8PPZcvQJlDGpxBDD3A96 xt0F3JOOjUJCsARJ9eSA4tM 1hbGlnbjogbGVmdDsgdmVyd GljYWwt IBqzX089LYWorFtsZzLvQzN 4TyR9LHU4J8BfBvn1PRAfkH mgCF3luKKdSXyeFq7rsKwny OeqGT2g WGOfkdkbYMMtuL0zHWRqsCP kmZijZN8kKVLvblwfg203Pc JkJMX9MGYgmJGoQ6PczA4nA iAjMDAw UYRxK6EadEAhAOjwV952USg cJcU1ICOeyzGmN1InXDXvbL jqXuB6m3B3Pf54FTIXJSYpj zwvdGQ+ GGHwXIE5wEtcQPnoIXSahZ1 tMFNdP8p8JaFkVoK3NIssO9 UqSFVwiyffHu63qN1zZmMiL kR1KCji N8HpauQ6NZIyqFOdKXstIMI 1L18ph0A7EVYaCSRaCTB2vU R1oF2muRdusjbbtLLfgYjsn mVydGlj YRefXPrrT729WHNgmFvyRr8 kfIZ6Q3EiMig8ZPGmlLqcRP 1qcCAcNBmcId1eoSwqfYsgJ C2aYPRt ntkzVXSojA5qKYQssCVhyAe gBR2fFEMnbunza006VhAfRF O8XTYajZMwZ2PyhO6iUyFsQ DAwMDAw K5VjzNWySUedW075ZSqwRlV 2YGCyzuNmJ2ZiFUVbvZdwHa Q7m7A9Ml9CoLIyEWCrUK69W Y71RE75 O6UfAcfvvTRjfVD+PHRhYmx lIHdpZHRoPScxMDAlJyBzdH zaZQ7aLu2jLYHyCVJxhLlqd HNlOiBj v6ioFVJsRZbrOS0zzHejZ8Q kdUP2WDIwy9m0Eb19M65fU3 JvdXA+LVZrhEG6bPD5aW1kZ zAlIiB2 CYaoI170NvCqkGJfEhfdy9e kd1eumVt8UwWyPOEbjaKvuA sfRDH4s0WjIn28R29vFKrrQ HRoPSIy BJOjVJDohSbkdk9nsG9hUh2 +OHUnnWJ9qTY5gB7sIxXeVl X1GEohW869DrVinGWsFqdcU 45aP8Fa dXA+LKXcWde5HMVrhYfnHX3 spFAhLYqdOm0sALR5XkXbJm BcLEnfI3EiZDIdetuigtdgp FE7WKOg PHYefP48Ym4ehEzlUu4xHOC jPNZ2PKAyePEyT9FamX7sMv SnGEIhQIGrK6CfnRKwHKnxW 246IGxl HrK7XWPspjBfM6IxXPXniOh tDmD6g4N0Gv1AnYhifDHcBP 3hVoXxDSe0B4NsTmu7KMQbh NssYG3f zGMwEJopOb2gwXsmgQifTP4 zURAbppslr953YbDpq1ihCX FtqSKvSDagBPW1J58fu0A3F CMwMDAw TIY1qNT8kV9osKpdunjncXV mdDsgdmVydGljYWwtYWxpZ2 95JMRoxCjiJsYRYqk0D5KtQ xb1AOCo kQdsOX2mhUPnWVxuEn1ueCw ptCokFC6zIMYailtdk478Tb Sna6gxGOYxpMQwECnoKUV0C 73sw3E5 JXFeBLSxFIX5mGR2fJ8scYm nbjogbGVmdDsgdmVydGljYW oePIiiZ799DUSyaCunVz0SL hv3J2Cn Yaw5CCUxrKmrOR0cmDQyUDb nGt0jqWtfbTjiVX8pRAVjyg uct476CpExx6lnVWJszOHpZ GltZXM7 M15ac1W3MMAiOICrMRX3kCX 9pS9tmNyazmldtSVplYrbfa JcsIrgHYfkHNgwZ212UXLsb DsnPlBh eWVyOjwvdGQ+LO53qt05Y1V rZugoHbq7FXHoNHN9jVV0jM 1cOBCjHXonb3Z0tVW6A7Dtx qCpib5r g1frHTJa (more content not included)... Normal [facility] Consultation Noteon 01-25-20 23 Consultation Note [id number]#1.00C D:127 Normal [facility] CNPNon 01-23-2023 CNPN Normal [facility] Heart and Vascular Office/Cl inic Noteon 01-23-2023 Heart and Vascular Office/Clinic Note Chief Complaint here for test results History of Present Illness The patient is a 72-year-old male who presents today for a follow-up evaluation of nonischemic cardiomyopathy. He is accompanied by an adult female. He explains that he is doing well and has been seeing his oncologist. He is taking a Medrol Dosepak for 2 days and this is his third set of double doses with 5 to go. The patient is feeling good and is staying semiactive in between his doses. 2 weeks ago, he had edema in his left ankle. He has rheumatoid arthritis and called Dr. Eloy Olson who prescribed him prednisone. He has finished the prednisone; however, it is still swollen and tight. The patient is scheduled for a Doppler ultrasound [facility], 01/22/2023. Echocardiogram is normal, but it's perhaps even slightly better than his previous echo. Review of Systems PHQ Score Initial Depression Screen Score: 0 Constitutional: no fever, no sweats, no weakness Skin: no rash, no lesions, no bruising/petechiae ENMT: no sore throat, no congestion, no hoarseness Respiratory: no shortness of breath, no cough, no orthopnea, no wheezing Cardiovascular: no chest pain, no palpitations, no edema Gastrointestinal: no nausea, no vomiting, no diarrhea, no GI bleeding Genitourinary: no anuria/oliguria no hematuria Musculoskeletal: no back pain, no trauma Neurologic: no headache, no dizziness, no numbness, no weakness Psychiatric: no sleeping problems, no irritability, no anxiety/depression. Heme/Lymph: no bleeding tendency, no bruising tendency Allergy/Immunologic: no recurrent infections, no impaired immunity Additional ROS info: Except as noted in the above Review of Systems and in the History of Present Illness all other systems have been reviewed and are negative or noncontributory Physical Exam Vitals & Measurements HR: 103(Peripheral) BP: 126/76 SpO2: 96% HT: 74 in HT: 188 cm WT: 111 kg WT: 244.2 lb BMI: 31.41 General: alert, no acute distress Skin: warm, dry intact Head: atraumatic, normocephalic Neck: Trachea midline, no JVD, no bruit Eye: normal conjunctiva, sclera clear ENMT: oral mucosa moist Cardiovascular: regular rate and rhythm, no murmur, normal peripheral perfusion Respiratory: Lungs CTA, respirations non labored Chest wall: no deformity. Gastrointestinal: soft, non-distended, no tenderness, no guarding. Back: No tenderness, Normal ROM, Normal alignment. Extremities: no edema, no deformity, no trauma Neurological: oriented x 4, LOC appropriate for age, sensation equal & normal bilaterally, speech normal Psychiatric: cooperative, affect appropriate for age, normal judgement, normal psychiatric thoughts. Assessment/Plan Mervat Damon is a 72-year-old male with nonischemic cardiomyopathy. Recent EF 50 to 55 percent, 14 percent PVCs and some short runs tachycardia on Holter. He is relatively asymptomatic. He is under cancer treatment right now. He is on a beta taina. His blood pressure is well controlled. He is getting a test for a possible blood clot in his left leg tonight, but otherwise he is doing well. Follow Up: 3 months ATTESTATION: Documentation services were performed after patient or guardian consented to allow [employer] to record this visit. SHAMAR underwriting specialist and provider reviewed before signing. SHAMAR: Ella Alvarez/ Pasted by Jt Beyer Follow-up No qualifying data available Problem List/Past Medical History Ongoing Anal fissure BMI 31.0-31.9,adult BPH with urinary obstruction Cervical spinal stenosis Erectile dysfunction External hemorrhoids Internal hemorrhoids Kidney stones Non-ischemic cardiomyopathy Prostate cancer screening RA - Rheumatoid arthritis Rectal bleeding Rectal cancer Rectal mass Rectal pain Tobacco non-user Historical No qualifying data Procedure/Surgical History Sigmoidoscopy (08/20/2022), Cataract extraction and insertion of intraocular lens (02/24/2019), Cataract extraction and insertion of intraocular lens (02/12/2019), Laparoscopic repair of inguinal hernia (01/01/2018), Cystoscopy (05/23/2016), ESWL - Extracorporeal shockwave lithotripsy for renal calculus (03/22/2016), ESWL - Extracorporeal shockwave lithotripsy for renal calculus (12/22/2015), Cystoscopy (09/28/2015), Cervical spinal fusion, Cervical spinal fusion, Colonoscopy, Hammer toe operation, Hemorrhoidectomy. Medications acetaminophen-hydrocodo ne 325 mg-5 mg oral tablet carvedilol 6.25 mg Tab, 6.25 mg= 1 tab(s), Oral, BID, 3 refills Cialis 20 mg Tab, See Instructions, PRN, 6 refills finasteride 5 mg Tab, 5 mg= 1 tab(s), Oral, Daily, 3 refills Flomax 0.4 mg Cap, 0.4 mg= 1 cap(s), Oral, BID, 3 refills folic acid 1 mg Tab, 1 mg= 1 tab(s), Oral, Daily Glucosamine Chondroitin, 1500mg/1200mg, Oral, Daily hydrochlorothiazide 12.5 mg Cap, 12.5 mg= 1 cap(s), Oral, Daily, 3 refills hydrocortisone Top 2.5% Crm ondansetron 8 mg Tab predniSONE 10 mg Tab, See Instruction (more content not included)... Normal [facility] Comment on above: Result Comment: Elec tronically Signed By: Dilan ARRINGTON, Santiago Medina\.br\Date and Time Signed: 01/23/23 10:57 EDT\.br\Electronically Co-Signed By: Jt Whyte\.br\Date and Time Co-Signed: 01/22/23 18:17 EDT US LE Venous Duplex Lefton 0 01-23-2023 US LE Venous Duplex Left Exam Date/Time: 01/22/2023 17:11 EDT Reason for Exam: M79.89 Report IMPRESSION: EXTENSIVE DEEP VENOUS THROMBOSIS OF THE LEFT LEG. CLINICAL HISTORY: M79.89. Left lower extremity swelling. COMMENT: There is flow and compressibility of the left external iliac vein. There is flow in the left greater saphenous vein in the upper thigh, extending to the saphenofemoral junction. At the level of the knee, the left greater saphenous vein is not visualized. There is lack of flow and compressibility of the common femoral, deep femoral, femoral, and popliteal veins on the left. There is partial compressibility of the left posterior tibial deep calf vein and lack of compressibility of the left peroneal deep calf vein. The contralateral right common femoral vein demonstrates spontaneous phasic venous flow. Ordering Provider: Ryan Hollis FINAL REPORT Dictated: 01/23/2023 2:32 pm Maged Stringer M.D. Signed (Electronic Signature): 01/23/2023 2:32 pm Signed by: Maged Stringer M.D. Transcribed by: VEENA Technologist: ELIE Madsen [facility] CBC W Auto Differential pane l (Bld)on 01-22-2023 Basophils (Bld) [#/Vol] 0.05 10*3/uL Normal <0.11 [facility] Comment on above: Order Comment: Speci men Type: BLOOD SPECIMENOrdering Facility: [facility] Address: [address] [address] Performed By: #### 5 7021-8 ####[facility] LABCLIA [id number] [place] [address] Basophils/100 WBC (Bld) 0.5 % Normal [facility] Comment on above: Order Comment: Speci men Type: BLOOD SPECIMENOrdering Facility: [facility] Address: [address] [address] Performed By: #### 5 7021-8 ####[facility] LABCLIA [id number] [place] [address] Differential cell count method Nom (Bld) Auto Normal [facility] Comment on above: Order Comment: Speci men Type: BLOOD SPECIMENOrdering Facility: [facility] Address: [address] [address] Performed By: #### 5 7021-8 ####[facility] LABCLIA [id number] [place] [address] Eosinophils (Bld) [#/Vol] 0.12 10*3/uL Normal <0.46 [facility] Comment on above: Order Comment: Speci men Type: BLOOD SPECIMENOrdering Facility: [facility] Address: [address] [place] [address] Performed By: #### 5 7021-8 ####[facility] LABCLIA [id number] [place] [address] Eosinophils/100 WBC (Bld) 1.3 % Normal [facility] Comment on above: Order Comment: Speci men Type: BLOOD SPECIMENOrdering Facility: [facility] Address: [address] [place] [address] Performed By: #### 5 7021-8 ####[facility] LABCLIA [id number] [place] [address] Erythrocyte distribution width (RBC) [Ratio] 17.2 % High 11.5-15.0 [facility] Comment on above: Order Comment: Speci men Type: BLOOD SPECIMENOrdering Facility: [facility] Address: [address] [place] [address] Performed By: #### 5 7021-8 ####[facility] LABCLIA [id number] [place] [address] Hematocrit (Bld) [Volume fraction] 37.2 % Low 39.0-51.0 [facility] Comment on above: Order Comment: Speci men Type: BLOOD SPECIMENOrdering Facility: [facility] Address: [address] [place] [address] Performed By: #### 5 7021-8 ####[facility] LABCLIA [id number] [place] [address] Hemoglobin (Bld) [Mass/Vol] 12.3 g/dL Low 13.0-17.0 [facility] Comment on above: Order Comment: Speci men Type: BLOOD SPECIMENOrdering Facility: [facility] Address: [address] [address] Performed By: #### 5 7021-8 ####[facility] LABCLIA [id number] [place] [address] Immature granulocytes (Bld) [#/Vol] 0.05 10*3/uL Normal <0.10 [facility] Comment on above: Order Comment: Speci men Type: BLOOD SPECIMENOrdering Facility: [facility] Address: [address] [address] Performed By: #### 5 7021-8 ####[facility] LABCLIA [id number] [place] [address] Immature granulocytes/100 WBC (Bld) 0.5 % Normal [facility] Comment on above: Order Comment: Speci men Type: BLOOD SPECIMENOrdering Facility: [facility] Address: [address] [address] Performed By: #### 5 7021-8 ####[facility] LABCLIA [id number] [place] [address] Lymphocytes (Bld) [#/Vol] 0.79 10*3/uL Low 1.00-4.00 [facility] Comment on above: Order Comment: Speci men Type: BLOOD SPECIMENOrdering Facility: [facility] Address: [address] [address] Performed By: #### 5 7021-8 ####[facility] LABCLIA [id number] [place] [address] Lymphocytes/100 WBC (Bld) 8.6 % Normal [facility] Comment on above: Order Comment: Speci men Type: BLOOD SPECIMENOrdering Facility: [facility] Address: [address] [place] [address] Performed By: #### 5 7021-8 ####[facility] LABCLIA [id number] [place] [address] MCH (RBC) [Entitic mass] 33.9 pg Normal 26.0-34.0 [facility] Comment on above: Order Comment: Speci men Type: BLOOD SPECIMENOrdering Facility: [facility] Address: [address] [place] [address] Performed By: #### 5 7021-8 ####[facility] LABIA [id number] [place] [address] MCHC (RBC) [Mass/Vol] 33.1 g/dL Normal 30.5-36.0 [facility] Comment on above: Order Comment: Speci men Type: BLOOD SPECIMENOrdering Facility: [facility] Address: [address] [place] [address] Performed By: #### 5 7021-8 ####[facility] LABIA [id number] [place] [address] MCV (RBC) [Entitic vol] 102.5 fL High 80.0-100.0 [facility] Comment on above: Order Comment: Speci men Type: BLOOD SPECIMENOrdering Facility: [facility] Address: [address] [place] [address] Performed By: #### 5 7021-8 ####[facility] LABIA [id number] [place] [address] Monocytes (Bld) [#/Vol] 0.82 10*3/uL Normal <0.87 [facility] Comment on above: Order Comment: Speci men Type: BLOOD SPECIMENOrdering Facility: [facility] Address: [address] [place] [address] Performed By: #### 5 7021-8 ####[facility] LABIA [id number] [place] [address] Monocytes/100 WBC (Bld) 8.9 % Normal [facility] Comment on above: Order Comment: Speci men Type: BLOOD SPECIMENOrdering Facility: [facility] Address: [address] [address] Performed By: #### 5 7021-8 ####[facility] LABCLIA [id number] [place] [address] Neutrophils (Bld) [#/Vol] 7.36 10*3/uL Normal 1.45-7.50 [facility] Comment on above: Order Comment: Speci men Type: BLOOD SPECIMENOrdering Facility: [facility] Address: [address] [address] Performed By: #### 5 7021-8 ####[facility] LABCLIA [id number] [place] [address] Neutrophils/100 WBC (Bld) 80.2 % Normal [facility] Comment on above: Order Comment: Speci men Type: BLOOD SPECIMENOrdering Facility: [facility] Address: [address] [place] [address] Performed By: #### 5 7021-8 ####[facility] LABCLIA [id number] [place] [address] Nucleated RBC (Bld) [#/Vol] 10*3/uL Normal <0.01 [facility] Comment on above: Order Comment: Speci men Type: BLOOD SPECIMENOrdering Facility: [facility] Address: [address] [place] [address] Performed By: #### 5 7021-8 ####[facility] LABCLIA [id number] [place] [address] Nucleated RBC/100 WBC (Bld) [Ratio] 0.0 /100 WBC Normal [facility] Comment on above: Order Comment: Speci men Type: BLOOD SPECIMENOrdering Facility: [facility] Address: [address] [place] [address] Performed By: #### 5 7021-8 ####[facility] LABCLIA [id number] [place] [address] Platelet mean volume (Bld) [Entitic vol] 10.1 fL Normal 9.0-12.7 [facility] Comment on above: Order Comment: Speci men Type: BLOOD SPECIMENOrdering Facility: [facility] Address: [address] [place] [address] Performed By: #### 5 7021-8 ####[facility] LABCLIA [id number] [place] [address] Platelets (Bld) [#/Vol] 113 10*3/uL Low 150-400 [facility] Comment on above: Order Comment: Speci men Type: BLOOD SPECIMENOrdering Facility: [facility] Address: [address] [place] [address] Performed By: #### 5 7021-8 ####[facility] LABIA [id number] [place] [address] RBC (Bld) [#/Vol] 3.63 10*6/uL Low 4.20-6.00 [facility] Comment on above: Order Comment: Speci men Type: BLOOD SPECIMENOrdering Facility: [facility] Address: [address] [place] [address] Performed By: #### 5 7021-8 ####[facility] LABCLIA [id number] [place] [address] WBC (Bld) [#/Vol] 9.19 10*3/uL Normal 3.70-11.00 [facility] Comment on above: Order Comment: Speci men Type: BLOOD SPECIMENOrdering Facility: [facility] Address: [address] [place] [address] Performed By: #### 5 7021-8 ####[facility] LABCLIA [id number] [place] [address] CEA SerPl-mCncon 01-22-2023 Carcinoembryonic Ag [Mass/Vol] 2.4 ng/mL Normal <=2.9 [facility] Comment on above: Order Comment: Speci men Type: BLOOD SPECIMENOrdering Facility: [facility] Address: [address] [address] Result Comment: Carc inoembryonic antigen test is used as an aid in monitoring response to treatment or recurrence in patients with established colorectal, breast, lung, prostatic, pancreatic, and ovarian carcinomas. Clinical correlation is required.The Carcinoembryonic antigen test was performed using the Korina Mcfarland Unicel DXI paramagnetic particle chemiluminescent immunoassay method. Results obtained with different assay methods or kits cannot be used interchangeably. Performed By: #### 2 039-6 ####[facility] LABCLIA [id number] [place] [address] [place] CNCNPATEDon 01-22-2023 CNCNPATED Normal [facility] CNOVSPon 01-22-2023 CNOVSP Normal [facility] CNPNon 01-22-2023 CNPN Normal [facility] Comprehensive metabolic 2000 panelon 01-22-2023 Albumin [Mass/Vol] 3.8 g/dL Low 3.9-4.9 [facility] Comment on above: Order Comment: Speci men Type: BLOOD SPECIMENOrdering Facility: [facility] Address: [address] [address] Performed By: #### 2 4323-8 ####[facility] LABCLIA [id number] [place] [address] ALP [Catalytic activity/Vol] 96 U/L Normal 38-113 [facility] Comment on above: Order Comment: Speci men Type: BLOOD SPECIMENOrdering Facility: [facility] Address: [address] [address] Performed By: #### 2 4323-8 ####[facility] LABCLIA [id number] [place] [address] ALT [Catalytic activity/Vol] 10 U/L Normal 10-54 [facility] Comment on above: Order Comment: Speci men Type: BLOOD SPECIMENOrdering Facility: [facility] Address: [address] [address] Performed By: #### 2 4323-8 ####[facility] LABCLIA [id number] [place] [address] Anion gap [Moles/Vol] 9 mmol/L Normal 9-18 [facility] Comment on above: Order Comment: Speci men Type: BLOOD SPECIMENOrdering Facility: [facility] Address: [address] [place] [address] Performed By: #### 2 4323-8 ####[facility] LABCLIA [id number] [place] [address] AST [Catalytic activity/Vol] 12 U/L Low 14-40 [facility] Comment on above: Order Comment: Speci men Type: BLOOD SPECIMENOrdering Facility: [facility] Address: [address] [place] [address] Performed By: #### 2 4323-8 ####[facility] LABCLIA [id number] [place] [address] Bilirubin [Mass/Vol] 0.9 mg/dL Normal 0.2-1.3 [facility] Comment on above: Order Comment: Speci men Type: BLOOD SPECIMENOrdering Facility: [facility] Address: [address] [place] [address] Performed By: #### 2 4323-8 ####[facility] LABCLIA [id number] [place] [address] Calcium [Mass/Vol] 9.1 mg/dL Normal 8.5-10.2 [facility] Comment on above: Order Comment: Speci men Type: BLOOD SPECIMENOrdering Facility: [facility] Address: [address] [place] [address] Performed By: #### 2 4323-8 ####[facility] LABCLIA [id number] [place] [address] Chloride [Moles/Vol] 103 mmol/L Normal 97-105 [facility] Comment on above: Order Comment: Speci men Type: BLOOD SPECIMENOrdering Facility: [facility] Address: [address] [address] Performed By: #### 2 4323-8 ####[facility] LABCLIA [id number] [place] [address] CO2 [Moles/Vol] 27 mmol/L Normal 22-30 [facility] Comment on above: Order Comment: Speci men Type: BLOOD SPECIMENOrdering Facility: [facility] Address: [address] [address] Performed By: #### 2 4323-8 ####[facility] LABCLIA [id number] [place] [address] Creatinine [Mass/Vol] 1.09 mg/dL Normal 0.73-1.22 [facility] Comment on above: Order Comment: Speci men Type: BLOOD SPECIMENOrdering Facility: [facility] Address: [address] [place] [address] Performed By: #### 2 4323-8 ####[facility] LABCLIA [id number] [place] [address] ESTIMATED GLOMERULAR FILTRATION RATE 73 mL/min/1.73m??? Normal >=60 [facility] Comment on above: Order Comment: Speci men Type: BLOOD SPECIMENOrdering Facility: [facility] Address: [address] [place] [address] Result Comment: Rebekah mated Glomerular Filtration Rate (eGFR) is calculated using the 2020 CKD-EPI creatinine equation. This equation utilizes serum creatinine, sex, and age as parameters. The creatinine assay has traceable calibration to isotope dilution-mass spectrometry. Refer to KDIGO guidelines for clinical interpretation. In patients with unstable renal function, e.g. those with acute kidney injury, the eGFR may not accurately reflect actual GFR. Performed By: #### 2 4323-8 ####[facility] LABCLIA [id number] [place] [address] Glucose [Mass/Vol] 100 mg/dL High 74-99 [facility] Comment on above: Order Comment: Speci men Type: BLOOD SPECIMENOrdering Facility: [facility] Address: [address] [place] [address] Result Comment: The [place] [employer] (ADA) provides guidance for cutoff values for fasting glucose and random glucose. The ADA defines fasting as no caloric intake for at least 8 hours. Fasting plasma glucose results between 100 to 125 mg/dL indicate increased risk for diabetes (prediabetes).Fasting plasma glucose results greater than or equal to 126 mg/dL meet the criteria for diagnosis of diabetes. In the absence of unequivocal hyperglycemia, results should be confirmed by repeat testing. In a patient with classic symptoms of hyperglycemia or hyperglycemic crisis, random plasma glucose results greater than or equal to 200 mg/dL meet the criteria for diagnosis of diabetes.Reference: Standards of Medical Care in Diabetes 2016, [employer]. Diabetes Care. 2016.39(Suppl 1). Performed By: #### 2 4323-8 ####[facility] LABCLIA [id number] [place] [address] Potassium [Moles/Vol] 4.1 mmol/L Normal 3.7-5.1 [facility] Comment on above: Order Comment: Speci men Type: BLOOD SPECIMENOrdering Facility: [facility] Address: [address] [place] [address] Performed By: #### 2 4323-8 ####[facility] LABCLIA [id number] [place] [address] Protein [Mass/Vol] 6.0 g/dL Low 6.3-8.0 [facility] Comment on above: Order Comment: Speci men Type: BLOOD SPECIMENOrdering Facility: [facility] Address: [address] [place] [address] Performed By: #### 2 4323-8 ####[facility] LABCLIA [id number] [place] [address] Sodium [Moles/Vol] 139 mmol/L Normal 136-144 [facility] Comment on above: Order Comment: Speci men Type: BLOOD SPECIMENOrdering Facility: [facility] Address: [address] [id number] Performed By: #### 2 4323-8 ####[facility] [id number] [place] [address] Urea nitrogen [Mass/Vol] 17 mg/dL Normal 9-24 [facility] Comment on above: Order Comment: Speci men Type: BLOOD SPECIMENOrdering Facility: [facility] Address: [address] [place] [id number] Performed By: #### 2 4323-8 ####[facility] LABIA [id number] [place] [address] Consent for Treatmenton Consent for Treatment [id number]#[id number] D:127 [facility] Physician Orderon 01-22-2023 Physician Order [id number]#1.00C D:127 [facility] CNPNon 01-18-2023 CNPN Normal [facility] Coding Summary.on 01-18-2023 Coding Summary. CD:[id number] Ww+ PGhlYWQ+LF7SZYLdX91roYL wgS4cR3DDKLoVQtbtRNKYXT pQHgKjtlKtBQ9uxCCuMMTu IC8+WN9xXOLvHwiplVOyt7A 3fRS1Y08yyd2qHBjewAF3CC ZeXqRhugyyb6kstVs4ZLowJ mluOyBt WEAtxE59VUQ7nN14Lq02zLU thSEvo1uakUy5OnMqNFRkWK N4lXehZTukc6BdTYJaA22cd ZVtq3S2 YYGhpXrjtUJtNiDllZM7oX4 vXLcddkkbw8dmdnnmKps4tg 00pQUqr9G5hZX1B8RtfbR1V GJvbGQg ZfnmzNHGyZ2gpgbgi7gqqyn kRiZqSRAmRPk1FOv1WTAfeD drVnIkLB42SCH5DIGsyhUcQ 2FsLWFs bCktIdK4o7F6Ni2SA9SIVxo dP5RCHRKYDDexgTH+PC90cj 85L2QlIlxwLik1RUMqCUV1x SI8sO5j JOVlKKunk1C4dZQ3W7CfqqA osz0dg5faNCOgAQugQ80afC Plq1C5JWTdlQX3MWOtmYerP iBzaG93 Oyc+NUVswNmhg9KoUwqru0h my5cqoCt2QaveRBVfuzVaoK kwRRE9x3PxIj7xKWSfiEO6t VL8oD8x KjXvCvS9YNycQ160FlHqzTZ xWlnjK42jC2FjjPP+PHRyPj t5DNWdcYnuPK1nJ5VgRTZjn mctbGVm sUxlNY1fAJSwiwfeCHLswO6 iHOWbK4b7UaQhJoT5RAvpX1 NaBSUcjgcuLg52eE5lEpMxW iZ5OZsj H8HcfsH9JQIivPVdQFtdDWF 4D60tq3G4PUNcLVTcLBW4kQ G8nL4kjXmrhjkgnZDclVfxy mVydGlj LCreZZdcG599MNVyxSuwAhH vZGluZyBEYXRlOiAgMDMvMz EvMjAyMzwvdGQ+PRDqJDN8m WxlPSAn lEYfKTuoKm8iyAiesWtaIM3 mBMMpqzfyLMKuqX7fPWCckT IquYioMK9tOJJngvrti144E iAxMHB0 WWNupYWaU0SnmA1yElJzJOM dCKZqJ5IygUNrQPchC162EF jsZeC6LEFfnxUqG2AlKAVsv WduOiB0 i8C6Mn7Uq9OksvenQ2GleMV jEkKjYmdbVZo7G1GxGceyfC I+KY13PPHcCK10PUy3SJH9z WxlPSdi HVRqH3QswF1eHeXhYNKjGSA kOyc+PHRhYmxlIHdpZHRoPS oqFYLrFdZyhTimBH9kDo8rX GVyLWNv zCagjYKoRuQzf6ppIYPpIXv xGA4lzNnqU4NutPJ9JCTxo2 l1Ti14D88vO3EsvIA+PGNvb AP1bOJ1 oU2sNxLdHiH0DHjiT707RgY fbUSmYfuys8vys2ovcGo3Nr F5FTCuovHbbEmsYUK1z7JtR x69H26k IHdpZHRoPSIxNSUiIHZhbGl afw5iiN9sNv5+NZLzfKW7dQ X9sY1xJuHeQqL7WDatP590O nRvcCIv Xmnny3ndo5qajSr1QmTbQYK qmgXklGsiEHG0v2PlEm21G7 QbxAiwf5YpSfr7me34qBFxa 0S4iRS1 C7ZxQOJnkhsueTDnkVkiAT1 iMVHuvldoXPXbhL4xKIDnT1 f3NuXmEpA4QUzdZ2OfsnD9A GJvbGQg VMSrmWHOlP3dxexzy5vzdpg cDrVpDRBhLQt2ORh9HCDexB lvMoArRUN2OxC4MNI1xWUmz I3qfBwj ccassR7lIha+VZT6sRJflTH MUG3eYqmfoTS+OYAtZIA3tU zgPAzgFOOieA9wQGFgF9d5O iAwLjA1 BMaaJ5IzseA9ENCezNMaYCJ xyWYQdO8aubfyy6btkjqtYv MrDPPkJGr1IMo0YONqwIoiS iBsZWZ0 UwJ4RVL1jDAsjR2icFbgmpl fjY0oIpg+IvvjpOegLRO6XF a9W6DbGvl5PFNnuVaiOJ5nk GFkZGlu Sn5wlPukyUcwQA4xVJCuqyq zp166SvYhk3sbPHCgtDUeKU bdUZD7E54jc8J1XXReGFAtJ OZ5tHK1 iM7mnSqisapsnFPabFhfelV zjDycULuxUUssK071EEDdlO zoGdDaJFz6T8XgLfx2EUTsa DurQD3y iSIfWObgJo3nmWhawJqjDW2 qKBWkowqxe552AxUpf1axYH BuyMTfVMqqFUZ3N37ts1T1C CMwMDAw TDY2mDO4mR5fpPjzyiqdmBO mdDsgdmVydGljYWwtYWxpZ2 43LHCkeWmzUnHxjHs6F8KgY al1JHSk sGzxDX6sdNFaZGrlKl1vuWg pyQykZX9hLZHlnutbd410Ys Uhz6rtDCQejZLrYYofCDG5N 79fm4R0 JXMlZMTjTVP7tAG5tK6kuPt nbjogbGVmdDsgdmVydGljYW jaUEteH030ZOVrcRkuNyEfo GllbnQg AAkoXEl6D9XsDzxitMC+PC9 5INGmBM78wIMtvDMlx8pwdE z7HdEhVXOzVTO8rBilOEgdd 3JkZXIt J84pjXZhh9X1WNOmkFwjdMX bLmAojPO1aZ5eXLxitxwbm1 nqdcbnWobjv9xbvh52tO72D 29sIHdp ZHRoPSIzMCUiIHZhbGlnbj0 doP4qLb1+XBGigFX3sEF9xW 4wAPSuNeU4GYwnD348LfJnx CIvPjxj s6luh9dzdAi7DkJ4SEXqqqX yzQpuEHW8k1SiQt05X42eIA dpZHRoPSIyMCUiIHZhbGlnb x2vlD5j Ii8+BBOgnJP0rPV4iM6zFzO uYeN4ZMmaQ659ZnTkfEUzZt cnS31zI7AytZM+WIUhUsp4Q CBzdHls DP2wqCHbUJdeWq1iJAD0GdW uVuQkEPezL1BtPLMrrfcwlf zhmJD5PMHfZVWbpV77Oh4cg DogMTBw dVZEjF6tvpqyl7drzpttErR nCWVsFPh6HZc7BZJuaFmpFe UsSNF3ZmP8CWD7eLPamQ6et Glnbjog bV9sE9WiPOEgpwvlCm29dX7 dXtKoVvV4URnqYya+V0FTSU 5WCHfaVD3FV3bBAUoeVDtup GQ+PHRk WAP4aTxxNFcuPMOydG7gUQI gR5m2VpVfEwK8FJzlO9BvZX BmrybbMh72yP3jJcHvMwG7C TdoZ6Xv aoY4FXInaREmKCljMZV9Z20 se5O5MHZaGXTmROO7dKG9sA 1hbGlnbjogbGVmdDsgdmVyd GljYWwt BUwsB276OEAymEksQuGxHuD 1AxT4RSK6O7MaWel9LCKroJ zzLF7vhWBrJKmuVc7agUlom GirRV8v PTNlcfcnVIUwiS9lOOQfvUI zyKmlQA8lMBFrofsxp405Lb VrHMY7BCJmqWHsK8BquR5kH iAjMDAw LCWlD5KywHJcHEvfK990GIh sMmP5CBMmssWgJ0ZtFKOhqB zmVaL1a5L9Om06SGAVTNGpu zwvdGQ+ LKBxOHW3jEoxGQaqNNWhuW2 aXFHsJ0s7KjZuYeO5SOzqL8 UrVFKyfohrTz83fU2aKwOaS zM6YNds D0AwryN7DKVhoIDwWVwhMMT 1A92zg7O3FSCcPMIjGJK7eV R2jQ9beGhwyvqkcINocVwki mVydGlj VQhtERgtK284RCDnvOpmWs1 keSG3V4ZfUke8TGMvmLhpQV 4gkUGtPUlyXa0upDwrbUdzT Z9hICYg apbyNDApvG4tWCAjlCEyvHt hOT9kLULtcdkau785TtSbLD P9HKKyoNCbX0ZuuA4qHeZlE DAwMDAw E1UylYStRUljX076WEovUrY 8JXFbjtClF7PwSZMyoNeqSz K4t6F5Ua8DlRKtMQMfDD26P P04AX43 B2MyChymkKKdwDN+PHRhYmx lIHdpZHRoPScxMDAlJyBzdH onBP2qXa9yZLIfKZXfgHngl HNlOiBj q7ljWEHtGBhcOD2bnJmqP0Z nkJD3OCRpe3a0Jd50M50dH7 JvdXA+TSHdlPV5vJS5mX5qS zAlIiB2 NEbaQ924XlSdxFQsOdcoc6v uo6iunTh4DjFhRQRntkPwsD iwNEJ6s8EqXy85C60nSBaqT HRoPSIy CCYkEYMwkXyfno2fzA9eTs5 +JVJjlND6gHZ4mQ2pNuLkUe M1SGsrB599EfEfnMHsOqxgD 53hN7Pp dXA+XEBtAin0RCKbpZxhMT4 mxSZcEHqhVu6iRSC3SfEbXj PoKOepO9GfGECdkdnhciamd DV3ZNNt BVXypU83Vd7akTpjXi0kTBA eJDP3HWSzmCCeX7BbsN2yUb AcYBXbHGGvE2OzcLKiDEwaL 246IGxl DdS3MARzjqDlQ2JoUWMcqQw iUhY3v4S3Nk0TtKylvZYdGF 9oCuKqKPr1E8QzXok9IOSty YbtCG0p fNKkRMdlOr6uaCxlyJngYQ5 vPVIsgmxez202KzIru7whOX PzqYLnFToyMZP0Y12cq7I4Q CMwMDAw WBH4mOU6oZ2hcIeglgfasMS mdDsgdmVydGljYWwtYWxpZ2 13TALzaEouPvGIXev5M2QlS wp0MWBf vCibJG7okYVcYSndXu8iiUk qiRjoDX0uPIAylxjzz382Sk Lyt1ubCYIfjSOmVQriRIW8Z 71ut8L1 ZVErNVLhRNI9kPL6gR6gdFe nbjogbGVmdDsgdmVydGljYW otHVojQ011DNJgbCiaHp5XF xi6E6Cn Gjb1YUPosKpfYF5sfLIyGGu mEw9xgLhjmKseFC7vGNRxlq bda786ZpHfi1kjVNNnpYOeH GltZXM7 P02ha3N4BAMwHMDpXXI7hCG 2cR2goGlabqnzwFVbwIoqfu IifDbdUNstOCrtZ422VCRga DsnPlBh eWVyOjwvdGQ+QM17uo62Q0R pBhvuAqz5BPGdLEI8cFZ7gK 0hIHOeTBbbv3I8qEO5C6Wxp mVroa9j a8kxJGGt (more content not included)... Normal [facility] CNPNon 01-14-2023 CNPN Normal [facility] Consent for Treatmenton 12-20 Consent for Treatment [id number] D:127 [facility] Consultation Noteon 01-10-20 Consultation Note [id number]#[id number] :127 Normal [facility] Basic metabolic 2000 panelon 01-08-2023 Anion gap [Moles/Vol] 11 mmol/L Normal 9-18 [facility] Comment on above: Order Comment: Speci men Type: BLOOD SPECIMENOrdering Facility: [facility] Address: [address] [place] [address] Performed By: #### 2 4321-2 ####[facility] LABCLIA [id number] [place] [address] Calcium [Mass/Vol] 9.3 mg/dL Normal 8.5-10.2 [facility] Comment on above: Order Comment: Speci men Type: BLOOD SPECIMENOrdering Facility: [facility] Address: [address] [place] [address] Performed By: #### 2 4321-2 ####[facility] LABCLIA [id number] [place] [address] Chloride [Moles/Vol] 106 mmol/L High 97-105 [facility] Comment on above: Order Comment: Speci men Type: BLOOD SPECIMENOrdering Facility: [facility] Address: [address] [place] [address] Performed By: #### 2 4321-2 ####[facility] LABCLIA [id number] [place] [address] CO2 [Moles/Vol] 25 mmol/L Normal 22-30 [facility] Comment on above: Order Comment: Speci men Type: BLOOD SPECIMENOrdering Facility: [facility] Address: [address] [place] [address] Performed By: #### 2 4321-2 ####[facility] LABCLIA [id number] [place] [address] Creatinine [Mass/Vol] 1.12 mg/dL Normal 0.73-1.22 [facility] Comment on above: Order Comment: Speci men Type: BLOOD SPECIMENOrdering Facility: [facility] Address: [address] [place] [id number] Performed By: #### 2 4321-2 ####[facility] LABCLIA [id number] [place] [address] ESTIMATED GLOMERULAR FILTRATION RATE 71 mL/min/1.73m??? Normal >=60 [facility] Comment on above: Order Comment: Speci men Type: BLOOD SPECIMENOrdering Facility: [facility] Address: [address] [place] [address] Result Comment: Rebekah mated Glomerular Filtration Rate (eGFR) is calculated using the 2020 CKD-EPI creatinine equation. This equation utilizes serum creatinine, sex, and age as parameters. The creatinine assay has traceable calibration to isotope dilution-mass spectrometry. Refer to KDIGO guidelines for clinical interpretation. In patients with unstable renal function, e.g. those with acute kidney injury, the eGFR may not accurately reflect actual GFR. Performed By: #### 2 4321-2 ####[facility] LABIA [id number] [place] [address] Glucose [Mass/Vol] 118 mg/dL High 74-99 [facility] Comment on above: Order Comment: Speci men Type: BLOOD SPECIMENOrdering Facility: [facility] Address: [address] [place] [address] Result Comment: The [place] Diabetes [employer] (ADA) provides guidance for cutoff values for fasting glucose and random glucose. The ADA defines fasting as no caloric intake for at least 8 hours. Fasting plasma glucose results between 100 to 125 mg/dL indicate increased risk for diabetes (prediabetes).Fasting plasma glucose results greater than or equal to 126 mg/dL meet the criteria for diagnosis of diabetes. In the absence of unequivocal hyperglycemia, results should be confirmed by repeat testing. In a patient with classic symptoms of hyperglycemia or hyperglycemic crisis, random plasma glucose results greater than or equal to 200 mg/dL meet the criteria for diagnosis of diabetes.Reference: Standards of Medical Care in Diabetes 2016, [employer]. Diabetes Care. 2016.39(Suppl 1). Performed By: #### 2 4321-2 ####[facility] LABCLIA [id number] [place] [address] Potassium [Moles/Vol] 3.9 mmol/L Normal 3.7-5.1 [facility] Comment on above: Order Comment: Speci men Type: BLOOD SPECIMENOrdering Facility: [facility] Address: [address] [place] [address] Performed By: #### 2 4321-2 ####[facility] LABCLIA [id number] [place] [address] Sodium [Moles/Vol] 142 mmol/L Normal 136-144 [facility] Comment on above: Order Comment: Speci men Type: BLOOD SPECIMENOrdering Facility: [facility] Address: [address] [place] [address] Performed By: #### 2 4321-2 ####[facility] LABCLIA [id number] [place] [address] Urea nitrogen [Mass/Vol] 18 mg/dL Normal 9-24 [facility] Comment on above: Order Comment: Speci men Type: BLOOD SPECIMENOrdering Facility: [facility] Address: [address] [place] [address] Performed By: #### 2 4321-2 ####[facility] LABCLIA [id number] [place] [address] Anion gap [Moles/Vol] 11 mmol/L 9 - 18 mmol/L [facility] [place] Calcium [Mass/Vol] 9.3 mg/dL 8.5 - 10. 2 mg/dL [facility] Chloride [Moles/Vol] 106 mmol/L High 97 - 10 5 mmol/L [facility] CO2 [Moles/Vol] 25 mmol/L 22 - 30 mmol/L [facility] Creatinine [Mass/Vol] 1.12 mg/dL 0.73 - 1.22 mg/dL [facility] Estimated Glomerular Filtration Rate 71 mL/min/1.73m >=60 mL/min/1.73 m [facility] Glucose [Mass/Vol] 118 mg/dL High 74 - 99 mg/dL [facility] Potassium [Moles/Vol] 3.9 mmol/L 3.7 - 5.1 mmol/L [facility] Sodium [Moles/Vol] 142 mmol/L 136 - 144 mmol/L [facility] Urea nitrogen [Mass/Vol] 18 mg/dL 9 - 24 mg/dL [facility] CBC W Auto Differential pane l (Bld)on 01-08-2023 Basophils (Bld) [#/Vol] 0.06 10*3/uL Normal <0.11 [facility] Comment on above: Order Comment: Speci men Type: BLOOD SPECIMENOrdering Facility: [facility] Address: [address] [place] [address] Performed By: #### 5 7021-8 ####[facility] LABCLIA [id number] [place] [address] Basophils/100 WBC (Bld) 0.8 % Normal [facility] Comment on above: Order Comment: Speci men Type: BLOOD SPECIMENOrdering Facility: [facility] Address: [address] [place] [address] Performed By: #### 5 7021-8 ####[facility] LABCLIA [id number] [place] [address] Differential cell count method Nom (Bld) Auto Normal [facility] Comment on above: Order Comment: Speci men Type: BLOOD SPECIMENOrdering Facility: [facility] Address: [address] [place] [address] Performed By: #### 5 7021-8 ####[facility] LABCLIA [id number] [place] [address] Eosinophils (Bld) [#/Vol] 0.33 10*3/uL Normal <0.46 [facility] Comment on above: Order Comment: Speci men Type: BLOOD SPECIMENOrdering Facility: [facility] Address: [address] [place] [address] Performed By: #### 5 7021-8 ####[facility] LABCLIA [id number] [place] [address] Eosinophils/100 WBC (Bld) 4.3 % Normal [facility] Comment on above: Order Comment: Speci men Type: BLOOD SPECIMENOrdering Facility: [facility] Address: [address] [place] [address] Performed By: #### 5 7021-8 ####[facility] LABCLIA [id number] [place] [address] Erythrocyte distribution width (RBC) [Ratio] 16.3 % High 11.5-15.0 [facility] Comment on above: Order Comment: Speci men Type: BLOOD SPECIMENOrdering Facility: [facility] Address: [address] [place] [address] Performed By: #### 5 7021-8 ####[facility] LABCLIA [id number] [place] [address] Hematocrit (Bld) [Volume fraction] 36.0 % Low 39.0-51.0 [facility] Comment on above: Order Comment: Speci men Type: BLOOD SPECIMENOrdering Facility: [facility] Address: [address] [place] [address] Performed By: #### 5 7021-8 ####[facility] LABCLIA [id number] [place] [address] Hemoglobin (Bld) [Mass/Vol] 11.9 g/dL Low 13.0-17.0 [facility] Comment on above: Order Comment: Speci men Type: BLOOD SPECIMENOrdering Facility: [facility] Address: [address] [place] [address] Performed By: #### 5 7021-8 ####[facility] LABCLIA [id number] [place] [address] Immature granulocytes (Bld) [#/Vol] 0.03 10*3/uL Normal <0.10 [facility] Comment on above: Order Comment: Speci men Type: BLOOD SPECIMENOrdering Facility: [facility] Address: [address] [place] [address] Performed By: #### 5 7021-8 ####[facility] LABCLIA [id number] [place] [address] Immature granulocytes/100 WBC (Bld) 0.4 % Normal [facility] Comment on above: Order Comment: Speci men Type: BLOOD SPECIMENOrdering Facility: [facility] Address: [address] [place] [address] Performed By: #### 5 7021-8 ####[facility] LABCLIA [id number] [place] [address] Lymphocytes (Bld) [#/Vol] 0.71 10*3/uL Low 1.00-4.00 [facility] Comment on above: Order Comment: Speci men Type: BLOOD SPECIMENOrdering Facility: [facility] Address: [address] [place] [address] Performed By: #### 5 7021-8 ####[facility] LABCLIA [id number] [place] [address] Lymphocytes/100 WBC (Bld) 9.3 % Normal [facility] Comment on above: Order Comment: Speci men Type: BLOOD SPECIMENOrdering Facility: [facility] Address: [address] [place] [address] Performed By: #### 5 7021-8 ####[facility] LABCLIA [id number] [place] [address] MCH (RBC) [Entitic mass] 33.4 pg Normal 26.0-34.0 [facility] Comment on above: Order Comment: Speci men Type: BLOOD SPECIMENOrdering Facility: [facility] Address: [address] [place] [address] Performed By: #### 5 7021-8 ####[facility] LABCLIA [id number] [place] [address] MCHC (RBC) [Mass/Vol] 33.1 g/dL Normal 30.5-36.0 [facility] Comment on above: Order Comment: Speci men Type: BLOOD SPECIMENOrdering Facility: [facility] Address: [address] [place] [address] Performed By: #### 5 7021-8 ####[facility] LABCLIA [id number] [place] [address] MCV (RBC) [Entitic vol] 101.1 fL High 80.0-100.0 [facility] Comment on above: Order Comment: Speci men Type: BLOOD SPECIMENOrdering Facility: [facility] Address: [address] [place] [address] Performed By: #### 5 7021-8 ####[facility] LABCLIA [id number] [place] [address] Monocytes (Bld) [#/Vol] 0.74 10*3/uL Normal <0.87 [facility] Comment on above: Order Comment: Speci men Type: BLOOD SPECIMENOrdering Facility: [facility] Address: [address] [address] Performed By: #### 5 7021-8 ####[facility] LABCLIA [id number] [place] [address] Monocytes/100 WBC (Bld) 9.7 % Normal [facility] Comment on above: Order Comment: Speci men Type: BLOOD SPECIMENOrdering Facility: [facility] Address: [address] [place] [address] Performed By: #### 5 7021-8 ####[facility] LABCLIA [id number] [place] [address] Neutrophils (Bld) [#/Vol] 5.76 10*3/uL Normal 1.45-7.50 [facility] Comment on above: Order Comment: Speci men Type: BLOOD SPECIMENOrdering Facility: [facility] Address: [address] [place] [address] Performed By: #### 5 7021-8 ####[facility] LABCLIA [id number] [place] [address] Neutrophils/100 WBC (Bld) 75.5 % Normal [facility] Comment on above: Order Comment: Speci men Type: BLOOD SPECIMENOrdering Facility: [facility] Address: [address] [place] [address] Performed By: #### 5 7021-8 ####[facility] LABCLIA [id number] [place] [address] Nucleated RBC (Bld) [#/Vol] 10*3/uL Normal <0.01 [facility] Comment on above: Order Comment: Speci men Type: BLOOD SPECIMENOrdering Facility: [facility] Address: [address] [place] [address] Performed By: #### 5 7021-8 ####[facility] LABCLIA [id number] [place] [address] Nucleated RBC/100 WBC (Bld) [Ratio] 0.0 /100 WBC Normal [facility] Comment on above: Order Comment: Speci men Type: BLOOD SPECIMENOrdering Facility: [facility] Address: [address] [place] [address] Performed By: #### 5 7021-8 ####[facility] LABCLIA [id number] [place] [address] Platelet mean volume (Bld) [Entitic vol] 10.1 fL Normal 9.0-12.7 [facility] Comment on above: Order Comment: Speci men Type: BLOOD SPECIMENOrdering Facility: [facility] Address: [address] [place] [address] Performed By: #### 5 7021-8 ####[facility] LABCLIA [id number] [place] [address] Platelets (Bld) [#/Vol] 176 10*3/uL Normal 150-400 [facility] Comment on above: Order Comment: Speci men Type: BLOOD SPECIMENOrdering Facility: [facility] Address: [address] [place] [address] Performed By: #### 5 7021-8 ####[facility] LABIA [id number] [place] [address] RBC (Bld) [#/Vol] 3.56 10*6/uL Low 4.20-6.00 [facility] Comment on above: Order Comment: Speci men Type: BLOOD SPECIMENOrdering Facility: [facility] Address: [address] [place] [address] Performed By: #### 5 7021-8 ####[facility] LABIA [id number] [place] [address] WBC (Bld) [#/Vol] 7.63 10*3/uL Normal 3.70-11.00 [facility] Comment on above: Order Comment: Speci men Type: BLOOD SPECIMENOrdering Facility: [facility] Address: [address] [place] [address] Performed By: #### 5 7021-8 ####[facility] LABIA [id number] [place] [id number] Basophils (Bld) [#/Vol] 0.06 10*3/uL <0.11 k/uL [facility] [place] Basophils/100 WBC (Bld) 0.8 % [facility] Differential cell count method Nom (Bld) Auto [facility] Eosinophils (Bld) [#/Vol] 0.33 10*3/uL <0.46 k/uL [facility] Eosinophils/100 WBC (Bld) 4.3 % [facility] Erythrocyte distribution width (RBC) [Ratio] 16.3 % High 11.5 - 15.0 % [facility] Hematocrit (Bld) [Volume fraction] 36.0 % Low 39.0 - 51.0 % [facility] Hemoglobin (Bld) [Mass/Vol] 11.9 g/dL Low 13.0 - 17.0 g/dL [facility] Immature granulocytes (Bld) [#/Vol] 0.03 10*3/uL <0.10 k/uL [facility] Immature granulocytes/100 WBC (Bld) 0.4 % [facility] [place] Lymphocytes (Bld) [#/Vol] 0.71 10*3/uL Low 1.00 - 4.00 k/uL [facility] Lymphocytes/100 WBC (Bld) 9.3 % [facility] MCH (RBC) [Entitic mass] 33.4 pg 26.0 - 34.0 pg [facility] MCHC (RBC) [Mass/Vol] 33.1 g/dL 30.5 - 36.0 g/dL [facility] MCV (RBC) [Entitic vol] 101.1 fL High 80.0 - 100.0 fL [facility] Monocytes (Bld) [#/Vol] 0.74 10*3/uL <0.87 k/uL [facility] Monocytes/100 WBC (Bld) 9.7 % [facility] Neutrophils (Bld) [#/Vol] 5.76 10*3/uL 1.45 - 7.50 k/uL [facility] Neutrophils/100 WBC (Bld) 75.5 % [facility] Nucleated RBC (Bld) [#/Vol] <0.01 k/uL [facility] Nucleated RBC/100 WBC (Bld) [Ratio] 0.0 /100 WBC [facility] Platelet mean volume (Bld) [Entitic vol] 10.1 fL 9.0 - 12.7 fL [facility] [place] Platelets (Bld) [#/Vol] 176 10*3/uL 150 - 400 k/uL [facility] RBC (Bld) [#/Vol] 3.56 10*6/uL Low 4.20 - 6.0 0 m/uL [facility] [place] WBC (Bld) [#/Vol] 7.63 10*3/uL 3.70 - 11.00 k/uL [facility] [place] CNCNPATEDon 01-08-2023 CNCNPATED Normal [facility] CNOVSPon 01-08-2023 CNOVSP Normal [facility] CNPNon 12-28-2022 CNPN Normal [facility] CBC W Auto Differential pane l (Bld)on 12-25-2022 Basophils (Bld) [#/Vol] 0.06 10*3/uL Normal <0.11 [facility] Comment on above: Order Comment: Speci men Type: BLOOD SPECIMENOrdering Facility: [facility] Address: [address] [address] Performed By: #### 5 7021-8 ####[facility] LABCLIA [id number] [place] [address] Basophils/100 WBC (Bld) 0.9 % Normal [facility] Comment on above: Order Comment: Speci men Type: BLOOD SPECIMENOrdering Facility: [facility] Address: [address] [place] [address] Performed By: #### 5 7021-8 ####[facility] LABCLIA [id number] [place] [address] Differential cell count method Nom (Bld) Auto Normal [facility] Comment on above: Order Comment: Speci men Type: BLOOD SPECIMENOrdering Facility: [facility] Address: [address] [place] [address] Performed By: #### 5 7021-8 ####[facility] LABCLIA [id number] [place] [address] Eosinophils (Bld) [#/Vol] 0.25 10*3/uL Normal <0.46 [facility] Comment on above: Order Comment: Speci men Type: BLOOD SPECIMENOrdering Facility: [facility] Address: [address] [place] [address] Performed By: #### 5 7021-8 ####[facility] LABCLIA [id number] [place] [address] Eosinophils/100 WBC (Bld) 3.6 % Normal [facility] Comment on above: Order Comment: Speci men Type: BLOOD SPECIMENOrdering Facility: [facility] Address: [address] [place] [address] Performed By: #### 5 7021-8 ####[facility] LABCLIA [id number] [place] [address] Erythrocyte distribution width (RBC) [Ratio] 17.8 % High 11.5-15.0 [facility] Comment on above: Order Comment: Speci men Type: BLOOD SPECIMENOrdering Facility: [facility] Address: [address] [place] [address] Performed By: #### 5 7021-8 ####[facility] LABCLIA [id number] [place] [address] Hematocrit (Bld) [Volume fraction] 39.4 % Normal 39.0-51.0 [facility] Comment on above: Order Comment: Speci men Type: BLOOD SPECIMENOrdering Facility: [facility] Address: [address] [place] [address] Performed By: #### 5 7021-8 ####[facility] LABCLIA [id number] [place] [address] Hemoglobin (Bld) [Mass/Vol] 13.2 g/dL Normal 13.0-17.0 [facility] Comment on above: Order Comment: Speci men Type: BLOOD SPECIMENOrdering Facility: [facility] Address: [address] [place] [address] Performed By: #### 5 7021-8 ####[facility] LABCLIA [id number] [place] [address] Immature granulocytes (Bld) [#/Vol] 0.05 10*3/uL Normal <0.10 [facility] Comment on above: Order Comment: Speci men Type: BLOOD SPECIMENOrdering Facility: [facility] Address: [address] [place] [address] Performed By: #### 5 7021-8 ####[facility] LABCLIA [id number] [place] [address] Immature granulocytes/100 WBC (Bld) 0.7 % Normal [facility] Comment on above: Order Comment: Speci men Type: BLOOD SPECIMENOrdering Facility: [facility] Address: [address] [place] [address] Performed By: #### 5 7021-8 ####[facility] LABCLIA [id number] [place] [address] Lymphocytes (Bld) [#/Vol] 0.83 10*3/uL Low 1.00-4.00 [facility] Comment on above: Order Comment: Speci men Type: BLOOD SPECIMENOrdering Facility: [facility] Address: [address] [place] [address] Performed By: #### 5 7021-8 ####[facility] LABCLIA [id number] [place] [address] Lymphocytes/100 WBC (Bld) 11.9 % Normal [facility] Comment on above: Order Comment: Speci men Type: BLOOD SPECIMENOrdering Facility: [facility] Address: [address] [place] [address] Performed By: #### 5 7021-8 ####[facility] LABCLIA [id number] [place] [address] MCH (RBC) [Entitic mass] 33.8 pg Normal 26.0-34.0 [facility] Comment on above: Order Comment: Speci men Type: BLOOD SPECIMENOrdering Facility: [facility] Address: [address] [place] [address] Performed By: #### 5 7021-8 ####[facility] LABCLIA [id number] [place] [address] MCHC (RBC) [Mass/Vol] 33.5 g/dL Normal 30.5-36.0 [facility] Comment on above: Order Comment: Speci men Type: BLOOD SPECIMENOrdering Facility: [facility] Address: [address] [place] [address] Performed By: #### 5 7021-8 ####[facility] LABCLIA [id number] [place] [address] MCV (RBC) [Entitic vol] 100.8 fL High 80.0-100.0 [facility] Comment on above: Order Comment: Speci men Type: BLOOD SPECIMENOrdering Facility: [facility] Address: [address] [place] [address] Performed By: #### 5 7021-8 ####[facility] LABCLIA [id number] [place] [address] Monocytes (Bld) [#/Vol] 0.74 10*3/uL Normal <0.87 [facility] Comment on above: Order Comment: Speci men Type: BLOOD SPECIMENOrdering Facility: [facility] Address: [address] [place] [address] Performed By: #### 5 7021-8 ####[facility] LABCLIA [id number] [place] [address] Monocytes/100 WBC (Bld) 10.6 % Normal [facility] Comment on above: Order Comment: Speci men Type: BLOOD SPECIMENOrdering Facility: [facility] Address: [address] [place] [address] Performed By: #### 5 7021-8 ####[facility] LABCLIA [id number] [place] [address] Neutrophils (Bld) [#/Vol] 5.03 10*3/uL Normal 1.45-7.50 [facility] Comment on above: Order Comment: Speci men Type: BLOOD SPECIMENOrdering Facility: [facility] Address: [address] [place] [address] Performed By: #### 5 7021-8 ####[facility] LABCLIA [id number] [place] [address] Neutrophils/100 WBC (Bld) 72.3 % Normal [facility] Comment on above: Order Comment: Speci men Type: BLOOD SPECIMENOrdering Facility: [facility] Address: [address] [place] [address] Performed By: #### 5 7021-8 ####[facility] LABCLIA [id number] [place] [address] Nucleated RBC (Bld) [#/Vol] 10*3/uL Normal <0.01 [facility] Comment on above: Order Comment: Speci men Type: BLOOD SPECIMENOrdering Facility: [facility] Address: [address] [place] [address] Performed By: #### 5 7021-8 ####[facility] LABCLIA [id number] [place] [address] Nucleated RBC/100 WBC (Bld) [Ratio] 0.0 /100 WBC Normal [facility] Comment on above: Order Comment: Speci men Type: BLOOD SPECIMENOrdering Facility: [facility] Address: [address] [place] [address] Performed By: #### 5 7021-8 ####[facility] LABCLIA [id number] [place] [address] Platelet mean volume (Bld) [Entitic vol] 10.0 fL Normal 9.0-12.7 [facility] Comment on above: Order Comment: Speci men Type: BLOOD SPECIMENOrdering Facility: [facility] Address: [address] [place] [address] Performed By: #### 5 7021-8 ####[facility] LABCLIA [id number] [place] [address] Platelets (Bld) [#/Vol] 163 10*3/uL Normal 150-400 [facility] Comment on above: Order Comment: Speci men Type: BLOOD SPECIMENOrdering Facility: [facility] Address: [address] [place] [address] Performed By: #### 5 7021-8 ####[facility] LABIA [id number] [place] [address] RBC (Bld) [#/Vol] 3.91 10*6/uL Low 4.20-6.00 [facility] Comment on above: Order Comment: Speci men Type: BLOOD SPECIMENOrdering Facility: [facility] Address: [address] [address] Performed By: #### 5 7021-8 ####[facility] LABCLIA [id number] [place] [address] WBC (Bld) [#/Vol] 6.96 10*3/uL Normal 3.70-11.00 [facility] Comment on above: Order Comment: Speci men Type: BLOOD SPECIMENOrdering Facility: [facility] Address: [address] [address] Performed By: #### 5 7021-8 ####[facility] LABCLIA [id number] [place] [address] Basophils (Bld) [#/Vol] 0.06 10*3/uL <0.11 k/uL [facility] [place] Basophils/100 WBC (Bld) 0.9 % [facility] [place] Differential cell count method Nom (Bld) Auto [facility] [place] Eosinophils (Bld) [#/Vol] 0.25 10*3/uL <0.46 k/uL [facility] [place] Eosinophils/100 WBC (Bld) 3.6 % [facility] [place] Erythrocyte distribution width (RBC) [Ratio] 17.8 % High 11.5 - 15.0 % [facility] [place] Hematocrit (Bld) [Volume fraction] 39.4 % 39.0 - 51.0 % [facility] [place] Hemoglobin (Bld) [Mass/Vol] 13.2 g/dL 13.0 - 17.0 g/dL [facility] [place] Immature granulocytes (Bld) [#/Vol] 0.05 10*3/uL <0.10 k/uL [facility] [place] Immature granulocytes/100 WBC (Bld) 0.7 % [facility] [place] Lymphocytes (Bld) [#/Vol] 0.83 10*3/uL Low 1.00 - 4.00 k/uL [facility] [place] Lymphocytes/100 WBC (Bld) 11.9 % [facility] [place] MCH (RBC) [Entitic mass] 33.8 pg 26.0 - 34.0 pg [facility] [place] MCHC (RBC) [Mass/Vol] 33.5 g/dL 30.5 - 36.0 g/dL [facility] [place] MCV (RBC) [Entitic vol] 100.8 fL High 80.0 - 100.0 fL [facility] [place] Monocytes (Bld) [#/Vol] 0.74 10*3/uL <0.87 k/uL [facility] [place] Monocytes/100 WBC (Bld) 10.6 % [facility] [place] Neutrophils (Bld) [#/Vol] 5.03 10*3/uL 1.45 - 7.50 k/uL [facility] [place] Neutrophils/100 WBC (Bld) 72.3 % [facility] [place] Nucleated RBC (Bld) [#/Vol] <0.01 k/uL [facility] [place] Nucleated RBC/100 WBC (Bld) [Ratio] 0.0 /100 WBC [facility] [place] Platelet mean volume (Bld) [Entitic vol] 10.0 fL 9.0 - 12.7 fL [facility] [place] Platelets (Bld) [#/Vol] 163 10*3/uL 150 - 400 k/uL [facility] [place] RBC (Bld) [#/Vol] 3.91 10*6/uL Low 4.20 - 6.0 0 m/uL [facility] [place] WBC (Bld) [#/Vol] 6.96 10*3/uL 3.70 - 11.00 k/uL [facility] [place] CNOVSPon 12-25-2022 CNOVSP Normal [facility] Comprehensive metabolic 2000 panelon 12-25-2022 Albumin [Mass/Vol] 4.1 g/dL Normal 3.9-4.9 [facility] Comment on above: Order Comment: Speci men Type: BLOOD SPECIMENOrdering Facility: [facility] Address: [address] [phone] Performed By: #### 2 4323-8 ####[facility] LABCLIA [id number] [place] [address] ALP [Catalytic activity/Vol] 83 U/L Normal 38-113 [facility] Comment on above: Order Comment: Speci men Type: BLOOD SPECIMENOrdering Facility: [facility] Address: [address] [phone] Performed By: #### 2 4323-8 ####[facility] LABCLIA [id number] [place] [address] ALT [Catalytic activity/Vol] 7 U/L Low 10-54 [facility] Comment on above: Order Comment: Speci men Type: BLOOD SPECIMENOrdering Facility: [facility] Address: [address] [place] [address] Performed By: #### 2 4323-8 ####[facility] LABCLIA [id number] [place] [address] Anion gap [Moles/Vol] 10 mmol/L Normal 9-18 [facility] Comment on above: Order Comment: Speci men Type: BLOOD SPECIMENOrdering Facility: [facility] Address: [address] [place] [address] Performed By: #### 2 4323-8 ####[facility] LABCLIA [id number] [place] [address] AST [Catalytic activity/Vol] 15 U/L Normal 14-40 [facility] Comment on above: Order Comment: Speci men Type: BLOOD SPECIMENOrdering Facility: [facility] Address: [address] [place] [address] Performed By: #### 2 4323-8 ####[facility] LABCLIA [id number] [place] [address] Bilirubin [Mass/Vol] 0.5 mg/dL Normal 0.2-1.3 [facility] Comment on above: Order Comment: Speci men Type: BLOOD SPECIMENOrdering Facility: [facility] Address: [address] [place] [address] Performed By: #### 2 4323-8 ####[facility] LABCLIA [id number] [place] [address] Calcium [Mass/Vol] 9.6 mg/dL Normal 8.5-10.2 [facility] Comment on above: Order Comment: Speci men Type: BLOOD SPECIMENOrdering Facility: [facility] Address: [address] [address] Performed By: #### 2 4323-8 ####[facility] LABCLIA [id number] [place] [address] Chloride [Moles/Vol] 105 mmol/L Normal 97-105 [facility] Comment on above: Order Comment: Speci men Type: BLOOD SPECIMENOrdering Facility: [facility] Address: [address] [place] [address] Performed By: #### 2 4323-8 ####[facility] LABCLIA [id number] [place] [address] CO2 [Moles/Vol] 28 mmol/L Normal 22-30 [facility] Comment on above: Order Comment: Speci men Type: BLOOD SPECIMENOrdering Facility: [facility] Address: [address] [place] [address] Performed By: #### 2 4323-8 ####[facility] LABCLIA [id number] [place] [address] Creatinine [Mass/Vol] 1.23 mg/dL High 0.73-1.22 [facility] Comment on above: Order Comment: Speci men Type: BLOOD SPECIMENOrdering Facility: [facility] Address: [address] [place] [address] Performed By: #### 2 4323-8 ####[facility] LABCLIA [id number] [place] [address] ESTIMATED GLOMERULAR FILTRATION RATE 63 mL/min/1.73m??? Normal >=60 [facility] Comment on above: Order Comment: Speci men Type: BLOOD SPECIMENOrdering Facility: [facility] Address: [address] [place] [address] Result Comment: Rebekah mated Glomerular Filtration Rate (eGFR) is calculated using the 2020 CKD-EPI creatinine equation. This equation utilizes serum creatinine, sex, and age as parameters. The creatinine assay has traceable calibration to isotope dilution-mass spectrometry. Refer to KDIGO guidelines for clinical interpretation. In patients with unstable renal function, e.g. those with acute kidney injury, the eGFR may not accurately reflect actual GFR. Performed By: #### 2 4323-8 ####[facility] LABCLIA [id number] [place] [address] Glucose [Mass/Vol] 86 mg/dL Normal 74-99 [facility] Comment on above: Order Comment: Speci men Type: BLOOD SPECIMENOrdering Facility: [facility] Address: [address] [place], [place] [phone] Result Comment: The [place] [employer] (ADA) provides guidance for cutoff values for fasting glucose and random glucose. The ADA defines fasting as no caloric intake for at least 8 hours. Fasting plasma glucose results between 100 to 125 mg/dL indicate increased risk for diabetes (prediabetes).Fasting plasma glucose results greater than or equal to 126 mg/dL meet the criteria for diagnosis of diabetes. In the absence of unequivocal hyperglycemia, results should be confirmed by repeat testing. In a patient with classic symptoms of hyperglycemia or hyperglycemic crisis, random plasma glucose results greater than or equal to 200 mg/dL meet the criteria for diagnosis of diabetes.Reference: Standards of Medical Care in Diabetes 2016, [place] [employer]. Diabetes Care. 2016.39(Suppl 1). Performed By: #### 2 4323-8 ####[facility] LABCLIA [id number] [place] [address] Potassium [Moles/Vol] 4.0 mmol/L Normal 3.7-5.1 [facility] Comment on above: Order Comment: [place] men Type: BLOOD SPECIMENOrdering Facility: [facility] Address: [address] [place] [phone] Performed By: #### 2 4323-8 ####[facility] LABCLIA [id number] [place] [address] Protein [Mass/Vol] 6.2 g/dL Low 6.3-8.0 [facility] Comment on above: Order Comment: Speci men Type: BLOOD SPECIMENOrdering Facility: [facility] Address: [address] [address] Performed By: #### 2 4323-8 ####[facility] LABCLIA [id number] [place] [address] Sodium [Moles/Vol] 143 mmol/L Normal 136-144 [facility] Comment on above: Order Comment: Speci men Type: BLOOD SPECIMENOrdering Facility: [facility] Address: [address] [address] Performed By: #### 2 4323-8 ####[facility] LABCLIA [id number] [place] [address] Urea nitrogen [Mass/Vol] 21 mg/dL Normal 9-24 [facility] Comment on above: Order Comment: Speci men Type: BLOOD SPECIMENOrdering Facility: [facility] Address: [address] [address] Performed By: #### 2 4323-8 ####[facility] LABCLIA [id number] [place] [address] Albumin [Mass/Vol] 4.1 g/dL 3.9 - 4.9 g/dL [facility] [place] ALP [Catalytic activity/Vol] 83 U/L 38 - 113 U/L [facility] [place] ALT [Catalytic activity/Vol] 7 U/L Low 10 - 54 U/L [facility] [place] Anion gap [Moles/Vol] 10 mmol/L 9 - 18 mmol/L [facility] [place] AST [Catalytic activity/Vol] 15 U/L 14 - 40 U/L [facility] [place] Bilirubin [Mass/Vol] 0.5 mg/dL 0.2 - 1 .3 mg/dL [facility] [place] Calcium [Mass/Vol] 9.6 mg/dL 8.5 - 10. 2 mg/dL [facility] [place] Chloride [Moles/Vol] 105 mmol/L 97 - 10 5 mmol/L [facility] [place] CO2 [Moles/Vol] 28 mmol/L 22 - 30 mmol/L [facility] [place] Creatinine [Mass/Vol] 1.23 mg/dL High 0.73 - 1.22 mg/dL [facility] [place] Estimated Glomerular Filtration Rate 63 mL/min/1.73m >=60 mL/min/1.73 m [facility] [place] Glucose [Mass/Vol] 86 mg/dL 74 - 99 mg/dL [facility] [place] Potassium [Moles/Vol] 4.0 mmol/L 3.7 - 5.1 mmol/L [facility] [place] Protein [Mass/Vol] 6.2 g/dL Low 6.3 - 8.0 g/dL [facility] [place] Sodium [Moles/Vol] 143 mmol/L 136 - 144 mmol/L [facility] [place] Urea nitrogen [Mass/Vol] 21 mg/dL 9 - 24 mg/dL [facility] [place] CNCNPATEDon 12-20-2022 CNCNPATED Normal [facility] HISTORY PHYSICALon HISTORY PHYSICAL HNO ID: [id number] Author: Mark Valladares MD Service: Interventional Radiology Author Type: Physician Type: HANDP Filed: 12/20/2022 9:48 AM Note Text: RADIOLOGY PROCEDURAL SEDATION HISTORY AND PHYSICAL EXAM SERVICE DATE: 12/20/2022 SERVICE TIME: 9:48 AM Subjective HPI: This is a 72 year old male with history of rectal cancer needing chemotherapy, who presents for SL port placement. 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 finasteride (PROSCAR) 5 mg tablet Take by mouth. HYDROcodone-acetaminoph en (NORCO) 5-325 mg per tablet Take 1 tablet by mouth every 8 hours as needed for pain. ondansetron (ZOFRAN) 8 mg tablet Take 1 tablet by mouth every 8 hours as needed for nausea/vomiting. prochlorperazine (COMPAZINE) 10 mg tablet Take 1 tablet by mouth every 6 hours as needed. acetaminophen 325 mg cap Take by mouth. ibuprofen (MOTRIN) 400 mg tablet Take 400 mg by mouth every 6 hours as needed. predniSONE (DELTASONE) 5 mg tablet Take 5 mg by mouth once daily. valsartan (DIOVAN) 80 mg tablet Take 80 mg by mouth once daily. carvedilol (COREG) 6.25 mg tablet Take 6.25 mg by mouth once daily. folic acid 1 mg tablet Take 1 mg by mouth once daily. Glucosamine Sulfate 500 mg tab Take 1 tablet by mouth once daily. tamsulosin ER (FLOMAX) 0.4 mg cap Take 0.4 mg by mouth twice daily. Ascorbic Acid 100 mg tablet Take 100 mg by mouth twice daily. ALLERGIES No Known Allergies Objective PHYSICAL EXAM: The remainder of the physical exam is noncontributory. AIRWAY: Airway Visualization of Uvula: Yes Mouth opening greater than 2 fingerbreadths: Yes Neck Full Range of Motion: Yes LUNGS: Lungs clear to auscultation, Good diaphragmatic excursion CARDIAC: Normal S1 and S2; no rubs, murmurs, or gallops Assessment/Plan ASA Class: ASA Class:: Patient with mild systemic disease Provisional Diagnosis/Treatment Plan: SL Port Placement IV ANCEF for ppx SEDATION GOAL: Moderate SIGNATURE: Mark Valladares MD PATIENT NAME: Mervat Damon DATE: December 20, 2022 TIME: 9:48 AM [facility] IR FLU GD JERMAINE CVA PLACEon IR FLU GD JERMAINE CVA PLACE * * *Final Report* * * DATE OF EXAM: Dec 20 2022 10:30AM [facility] 7444 - IR FLU GD JERMAINE CVA PLACE / PROCEDURE REASON: Rectal cancer (HCC) [C20] * * * * Physician Interpretation * * * * PROCEDURE: VENOUS PORT PLACEMENT Procedural Personnel Attending physician(s): Mark Valladares MD Fellow physician(s): None Resident physician(s): None Advanced practice provider(s): None Medical Student(s): None Pre-procedure diagnosis: Rectal cancer Post-procedure diagnosis: Same Indication: 72 year old?male?with history of rectal cancer needing chemotherapy, who presents for SL port placement. Additional clinical history: None PROCEDURE SUMMARY: - Venous access with ultrasound guidance - Tunneled port insertion under fluoroscopic guidance - Additional procedure(s): None PROCEDURE DETAILS: Pre-procedure History and imaging of central venous access reviewed (QCDR): Yes Consent: Risks, benefits, treatment options, potential complications and personnel to be involved were discussed (including the risks of radiation exposure, contrast and anesthesia administration, and any equipment needed for the procedure to ensure best possible outcome) with the patient and all questions were answered and consent was obtained prior to procedure. Transfusion of blood products: No Medication reconciliation: The patient's medications and allergies were reviewed in the electronic medical record and reconciled to the proposed procedure/treatment. Shikha-procedure discussion: The appropriate elements of the pre-procedure discussion, safety check list and sign-out were performed. Time out: A time out was performed immediately prior to procedure start with the nursing and interventional team, correctly identifying the name, date of , procedure, anatomy (including marking of site and side if applicable), patient position, procedure consent form, relevant diagnostic and radiology test results, antibiotic administration if applicable, safety precautions, and procedure-specific equipment needs. Start of procedure: 10:04 AM End of procedure: 10:28 AM Patient position: Supine Antibiotics: Cefazolin Antibiotic infusion start time: 9:37 AM Prophylactic antibiotic administered: Within 1 hour of procedure start time or 2 hours for vancomycin or fluoroquinolones Preparation (MIPS): The site was prepared and draped using all elements of maximal sterile barrier technique including sterile gloves, sterile gown, cap, mask, large sterile sheet, sterile ultrasound probe cover, hand hygiene and cutaneous antisepsis with 2% chlorhexidine. Medical reason for site preparation exception (MIPS): Not applicable Contrast None. FLUOROSCOPIC RADIATION SUMMARY: Plane A, Air Kerma: 4.0 mGy Dose Area Product (DAP): 1124 mGycm2 Fluoro Time: 0:24 min:sec Radiation dose exceed 5 Gy: No If radiation dose exceeded 5 Gy, was counseling and instructional brochure provided: N/A Anesthesia/sedation Level of anesthesia/sedation: Moderate sedation (conscious sedation) Anesthesia/sedation administered by: Independent trained observer under attending supervision with continuous monitoring of the patient?s level of consciousness and physiologic status Total intra-service sedation time (minutes): 31 Local anesthesia: 2 % lidocaine Access Local anesthesia was administered. The vessel was sonographically evaluated and determined to be patent. Real time ultrasound was used to visualize needle entry into the vessel and a permanent image was stored. Vein accessed: Internal jugular vein Access technique: Micropuncture set with 21 gauge needle Venography Indication for venography: Not performed Vein catheterized: Not applicable Findings: Not applicable Port placement An incision was made at the upper chest, a pocket was created, and the catheter was tunneled subcutaneously to the venous access site and trimmed to appropriate length. The port was inserted into the pocket and the catheter was advanced via a peel-away sheath into the vein under fluoroscopic guidance. The port was sutured into the pocket using absorbable suture. Catheter tip location was fluoroscopically verified and a permanent image was stored. Port placed: 8 F BARD PowerPort by - Groshong (distal valved) silicone catheter with pressure injectable titanium port. Catheter tip position: Cavoatrial junction Unique Device Identifier: Not available Catheter flush: Normal saline Closure The access site and incision were closed and sterile dressing(s) were applied. Access site closure technique: Tissue adhesive Incision closure technique: Absorbable suture and tissue adhesive Patient discharged from procedure suite with device accessed: No Additional Details Additional description of procedure: None Equipment details: None Specimens removed: None Estimated blood loss (mL): Less than 10 Standardized report: SIR_Port_v2 Th (more content not included)... [facility] IR PORTOCATH PLACEMENTon IR PORTOCATH PLACEMENT * * *Final Report* * * DATE OF EXAM: Dec 20 2022 10:30AM [facility] 8966 - IR PORTOCATH PLACEMENT / PROCEDURE REASON: Rectal cancer (HCC) [C20] * * * * Physician Interpretation * * * * PROCEDURE: VENOUS PORT PLACEMENT Procedural Personnel Attending physician(s): Mark Valladares MD Fellow physician(s): None Resident physician(s): None Advanced practice provider(s): None Medical Student(s): None Pre-procedure diagnosis: Rectal cancer Post-procedure diagnosis: Same Indication: 72 year old?male?with history of rectal cancer needing chemotherapy, who presents for SL port placement. Additional clinical history: None PROCEDURE SUMMARY: - Venous access with ultrasound guidance - Tunneled port insertion under fluoroscopic guidance - Additional procedure(s): None PROCEDURE DETAILS: Pre-procedure History and imaging of central venous access reviewed (QCDR): Yes Consent: Risks, benefits, treatment options, potential complications and personnel to be involved were discussed (including the risks of radiation exposure, contrast and anesthesia administration, and any equipment needed for the procedure to ensure best possible outcome) with the patient and all questions were answered and consent was obtained prior to procedure. Transfusion of blood products: No Medication reconciliation: The patient's medications and allergies were reviewed in the electronic medical record and reconciled to the proposed procedure/treatment. Shikha-procedure discussion: The appropriate elements of the pre-procedure discussion, safety check list and sign-out were performed. Time out: A time out was performed immediately prior to procedure start with the nursing and interventional team, correctly identifying the name, date of , procedure, anatomy (including marking of site and side if applicable), patient position, procedure consent form, relevant diagnostic and radiology test results, antibiotic administration if applicable, safety precautions, and procedure-specific equipment needs. Start of procedure: 10:04 AM End of procedure: 10:28 AM Patient position: Supine Antibiotics: Cefazolin Antibiotic infusion start time: 9:37 AM Prophylactic antibiotic administered: Within 1 hour of procedure start time or 2 hours for vancomycin or fluoroquinolones Preparation (MIPS): The site was prepared and draped using all elements of maximal sterile barrier technique including sterile gloves, sterile gown, cap, mask, large sterile sheet, sterile ultrasound probe cover, hand hygiene and cutaneous antisepsis with 2% chlorhexidine. Medical reason for site preparation exception (MIPS): Not applicable Contrast None. FLUOROSCOPIC RADIATION SUMMARY: Plane A, Air Kerma: 4.0 mGy Dose Area Product (DAP): 1124 mGycm2 Fluoro Time: 0:24 min:sec Radiation dose exceed 5 Gy: No If radiation dose exceeded 5 Gy, was counseling and instructional brochure provided: N/A Anesthesia/sedation Level of anesthesia/sedation: Moderate sedation (conscious sedation) Anesthesia/sedation administered by: Independent trained observer under attending supervision with continuous monitoring of the patient?s level of consciousness and physiologic status Total intra-service sedation time (minutes): 31 Local anesthesia: 2 % lidocaine Access Local anesthesia was administered. The vessel was sonographically evaluated and determined to be patent. Real time ultrasound was used to visualize needle entry into the vessel and a permanent image was stored. Vein accessed: Internal jugular vein Access technique: Micropuncture set with 21 gauge needle Venography Indication for venography: Not performed Vein catheterized: Not applicable Findings: Not applicable Port placement An incision was made at the upper chest, a pocket was created, and the catheter was tunneled subcutaneously to the venous access site and trimmed to appropriate length. The port was inserted into the pocket and the catheter was advanced via a peel-away sheath into the vein under fluoroscopic guidance. The port was sutured into the pocket using absorbable suture. Catheter tip location was fluoroscopically verified and a permanent image was stored. Port placed: 8 F BARD PowerPort by - Groshong (distal valved) silicone catheter with pressure injectable titanium port. Catheter tip position: Cavoatrial junction Unique Device Identifier: Not available Catheter flush: Normal saline Closure The access site and incision were closed and sterile dressing(s) were applied. Access site closure technique: Tissue adhesive Incision closure technique: Absorbable suture and tissue adhesive Patient discharged from procedure suite with device accessed: No Additional Details Additional description of procedure: None Equipment details: None Specimens removed: None Estimated blood loss (mL): Less than 10 Standardized report: SIR_Port_v2 The (more content not included)... [facility] IR US VASCULAR ACCESS GUIDEo n 12-20-2022 IR US VASCULAR ACCESS GUIDE * * *Final Report* * * DATE OF EXAM: Dec 20 2022 10:30AM [facility] 7765 - US VASCULAR ACCESS GUIDE / PROCEDURE REASON: Rectal cancer (HCC) [C20] * * * * Physician Interpretation * * * * PROCEDURE: VENOUS PORT PLACEMENT Procedural Personnel Attending physician(s): Mark Vallaadres MD Fellow physician(s): None Resident physician(s): None Advanced practice provider(s): None Medical Student(s): None Pre-procedure diagnosis: Rectal cancer Post-procedure diagnosis: Same Indication: 72 year old?male?with history of rectal cancer needing chemotherapy, who presents for SL port placement. Additional clinical history: None PROCEDURE SUMMARY: - Venous access with ultrasound guidance - Tunneled port insertion under fluoroscopic guidance - Additional procedure(s): None PROCEDURE DETAILS: Pre-procedure History and imaging of central venous access reviewed (QCDR): Yes Consent: Risks, benefits, treatment options, potential complications and personnel to be involved were discussed (including the risks of radiation exposure, contrast and anesthesia administration, and any equipment needed for the procedure to ensure best possible outcome) with the patient and all questions were answered and consent was obtained prior to procedure. Transfusion of blood products: No Medication reconciliation: The patient's medications and allergies were reviewed in the electronic medical record and reconciled to the proposed procedure/treatment. Shikha-procedure discussion: The appropriate elements of the pre-procedure discussion, safety check list and sign-out were performed. Time out: A time out was performed immediately prior to procedure start with the nursing and interventional team, correctly identifying the name, date of , procedure, anatomy (including marking of site and side if applicable), patient position, procedure consent form, relevant diagnostic and radiology test results, antibiotic administration if applicable, safety precautions, and procedure-specific equipment needs. Start of procedure: 10:04 AM End of procedure: 10:28 AM Patient position: Supine Antibiotics: Cefazolin Antibiotic infusion start time: 9:37 AM Prophylactic antibiotic administered: Within 1 hour of procedure start time or 2 hours for vancomycin or fluoroquinolones Preparation (MIPS): The site was prepared and draped using all elements of maximal sterile barrier technique including sterile gloves, sterile gown, cap, mask, large sterile sheet, sterile ultrasound probe cover, hand hygiene and cutaneous antisepsis with 2% chlorhexidine. Medical reason for site preparation exception (MIPS): Not applicable Contrast None. FLUOROSCOPIC RADIATION SUMMARY: Plane A, Air Kerma: 4.0 mGy Dose Area Product (DAP): 1124 mGycm2 Fluoro Time: 0:24 min:sec Radiation dose exceed 5 Gy: No If radiation dose exceeded 5 Gy, was counseling and instructional brochure provided: N/A Anesthesia/sedation Level of anesthesia/sedation: Moderate sedation (conscious sedation) Anesthesia/sedation administered by: Independent trained observer under attending supervision with continuous monitoring of the patient?s level of consciousness and physiologic status Total intra-service sedation time (minutes): 31 Local anesthesia: 2 % lidocaine Access Local anesthesia was administered. The vessel was sonographically evaluated and determined to be patent. Real time ultrasound was used to visualize needle entry into the vessel and a permanent image was stored. Vein accessed: Internal jugular vein Access technique: Micropuncture set with 21 gauge needle Venography Indication for venography: Not performed Vein catheterized: Not applicable Findings: Not applicable Port placement An incision was made at the upper chest, a pocket was created, and the catheter was tunneled subcutaneously to the venous access site and trimmed to appropriate length. The port was inserted into the pocket and the catheter was advanced via a peel-away sheath into the vein under fluoroscopic guidance. The port was sutured into the pocket using absorbable suture. Catheter tip location was fluoroscopically verified and a permanent image was stored. Port placed: 8 F BARD PowerPort by - Groshong (distal valved) silicone catheter with pressure injectable titanium port. Catheter tip position: Cavoatrial junction Unique Device Identifier: Not available Catheter flush: Normal saline Closure The access site and incision were closed and sterile dressing(s) were applied. Access site closure technique: Tissue adhesive Incision closure technique: Absorbable suture and tissue adhesive Patient discharged from procedure suite with device accessed: No Additional Details Additional description of procedure: None Equipment details: None Specimens removed: None Estimated blood loss (mL): Less than 10 Standardized report: SIR_Port_v2 (more content not included)... Normal [facility] Yaron 12-19-2022 [facility] Telephone (AVXRPR) MERVAT DAMON ([id number]) 1950 M Date Time Provider Department 12/19/22 MILTON WARD During your visit today, we recorded the following information about you: Milton Ward RN 12/19/2022 12:16 PM Signed You are scheduled for a Mediport placement, On 12/20/2022. You are to arrive at 0900 am and Report to [facility]: [facility]: Enter through [facility] entrance. Proceed to the 2nd floor Surgical Services Desk for check in. You can expect to be here for 2-4 hours. Diet: Do not eat any solid food after midnight the day of/night before your procedure. You may drink clear liquids until 0800, which means black coffee, apple juice, black tea, or water only. . Medications: Ok to take your cardiac, blood pressure, anti-seizure, and chronic pain medications with a sip of water, please take prior to arrival. Bring your current medication list. Special concerns: Do you have any attached medical devices? No, . Do you use CPAP or BPAP? No. Contrast Dye Prep: Do you have a contrast dye allergy? No. Labs: Lab-work needs to be drawn? Yes Labs to be drawn - PT/ INR Labs need to be drawn at least one day prior to procedure. Please bring a copy of the results if they are not done at a [facility] facility. . Paper Hanger/Transportation: How will you be arriving for your procedure? Private car. You will need a responsible adult to accompany you to and from the procedure. Your tractor trailer driver is required to stay with you until you are taken into the procedure room. Call for any questions [phone] Allergies As of Date: 12/19/2022 (No Known Allergies) Date Reviewed: 12/17/2022 Reviewed by: Renata Amin - Fully Assessed Reason for Visit: Radiology Pre Procedure Instructions [1506] Prescriptions as of 12/19/2022 - hydroCHLOROthiazide (HYDRODIURIL, ESIDRIX) 12.5 mg capsule - oxyCODONE-acetaminophen (PERCOCET) 5-325 mg tablet Take 1 tablet by mouth every 6 hours as needed for pain. - finasteride (PROSCAR) 5 mg tablet Take by mouth. - HYDROcodone-acetaminoph en (NORCO) 5-325 mg per tablet Take 1 tablet by mouth every 8 hours as needed for pain. - ondansetron (ZOFRAN) 8 mg tablet Take 1 tablet by mouth every 8 hours as needed for nausea/vomiting. - prochlorperazine (COMPAZINE) 10 mg tablet Take 1 tablet by mouth every 6 hours as needed. - acetaminophen 325 mg cap Take by mouth. - ibuprofen (MOTRIN) 400 mg tablet Take 400 mg by mouth every 6 hours as needed. - predniSONE (DELTASONE) 5 mg tablet Take 5 mg by mouth once daily. - valsartan (DIOVAN) 80 mg tablet Take 80 mg by mouth once daily. - carvedilol (COREG) 6.25 mg tablet Take 6.25 mg by mouth once daily. - folic acid 1 mg tablet Take 1 mg by mouth once daily. - Glucosamine Sulfate 500 mg tab Take 1 tablet by mouth once daily. - tamsulosin ER (FLOMAX) 0.4 mg cap Take 0.4 mg by mouth twice daily. - Ascorbic Acid 100 mg tablet Take 100 mg by mouth twice daily. Problem List As Of Date 12/19/2022 Noted Resolved Pulmonary embolus with infarction (HCC) [I26.99]08/04/2018 Rectal cancer (HCC) [C20] 12/17/2022 Encounter Status:Closed by MILTON WARD on 12/19/22 [facility] PT panel Coag (PPP)on 2022 INR Coag (PPP) [Relative time] 1.0 {INR} 0.9 - 1.3 [facility] PT Coag (PPP) [Time] 10.7 s 9.7 - 1 3.0 sec [facility] INR Coag (PPP) [Relative time] 1.0 {INR} Normal 0.9-1.3 [facility] Comment on above: Order Comment: Speci men Type: BLOOD SPECIMENOrdering Facility: [facility] Address: [address] [place] [id number] Result Comment: Myrna min K Antagonist (VKA) Therapeutic Range: INR 2 to 3 (Target INR of 2.5)Note: For patients treated with VKA drugs, such as warfarin, the [employer] 2012 Guideline recommends a therapeutic INR range of 2 to 3 (target INR of 2.5). This recommendation includes high-risk patients with antiphospholipid syndrome with previous arterial or venous thromboembolism, current-generation mechanical or bioprosthetic aortic heart valve replacement.Note: Patients with mechanical aortic valve replacement and additional risk factors for thromboembolic events (atrial fibrillation, previous thromboembolism, LV dysfunction, hypercoagulable conditions) or an older generation mechanical AVR (i.e., ball in-Cage) or any mechanical MVR should have a INR therapeutic range of 2.5 to 3.5 (target INR of 3).Dmitriy GH, et al. Chest 2012, 141:7S-47SNishjames RA, et al. JACC 2017, 70: 252-289 Performed By: #### 3 4528-0 ####[facility] [id number] [place] [address] [place] PT Coag (PPP) [Time] 10.7 s Normal 9.7-13.0 [facility] Comment on above: Order Comment: Speci men Type: BLOOD SPECIMENOrdering Facility: [facility] Address: [address] [address] Performed By: #### 3 4528-0 ####[facility] [id number] [address] OF [place] BLDon 12-18-2022 Carcinoembryonic Ag [Mass/Vol] 1.7 ng/mL <=2.9 ng/mL [facility] CNPNon 12-18-2022 CNPN Normal [facility] Consultation Noteon 12-18-19 Consultation Note [id number]#1.00C D:127 Normal [facility] CBC W Auto Differential pane l (Bld)on 12-17-2022 Basophils (Bld) [#/Vol] 0.04 10*3/uL Normal <0.11 [facility] Comment on above: Order Comment: Speci men Type: BLOOD SPECIMENOrdering Facility: [facility] Address: [address] [address] Performed By: #### 5 7021-8 ####[facility] LABCLIA [id number] [place] [address] Basophils/100 WBC (Bld) 0.7 % Normal [facility] Comment on above: Order Comment: Speci men Type: BLOOD SPECIMENOrdering Facility: [facility] Address: [address] [address] Performed By: #### 5 7021-8 ####[facility] LABCLIA [id number] [place] [address] Differential cell count method Nom (Bld) Auto Normal [facility] Comment on above: Order Comment: Speci men Type: BLOOD SPECIMENOrdering Facility: [facility] Address: [address] [place] [address] Performed By: #### 5 7021-8 ####[facility] LABCLIA [id number] [place] [address] Eosinophils (Bld) [#/Vol] 0.13 10*3/uL Normal <0.46 [facility] Comment on above: Order Comment: Speci men Type: BLOOD SPECIMENOrdering Facility: [facility] Address: [address] [place] [address] Performed By: #### 5 7021-8 ####[facility] LABCLIA [id number] [place] [address] Eosinophils/100 WBC (Bld) 2.2 % Normal [facility] Comment on above: Order Comment: Speci men Type: BLOOD SPECIMENOrdering Facility: [facility] Address: [address] [place] [address] Performed By: #### 5 7021-8 ####[facility] LABCLIA [id number] [place] [address] Erythrocyte distribution width (RBC) [Ratio] 18.9 % High 11.5-15.0 [facility] Comment on above: Order Comment: Speci men Type: BLOOD SPECIMENOrdering Facility: [facility] Address: [address] [place] [address] Performed By: #### 5 7021-8 ####[facility] LABCLIA [id number] [place] [address] Hematocrit (Bld) [Volume fraction] 38.5 % Low 39.0-51.0 [facility] Comment on above: Order Comment: Speci men Type: BLOOD SPECIMENOrdering Facility: [facility] Address: [address] [place] [address] Performed By: #### 5 7021-8 ####[facility] LABCLIA [id number] [place] [address] Hemoglobin (Bld) [Mass/Vol] 12.9 g/dL Low 13.0-17.0 [facility] Comment on above: Order Comment: Speci men Type: BLOOD SPECIMENOrdering Facility: [facility] Address: [address] [place] [address] Performed By: #### 5 7021-8 ####[facility] LABCLIA [id number] [place] [address] Immature granulocytes (Bld) [#/Vol] 0.05 10*3/uL Normal <0.10 [facility] Comment on above: Order Comment: Speci men Type: BLOOD SPECIMENOrdering Facility: [facility] Address: [address] [place] [address] Performed By: #### 5 7021-8 ####[facility] LABCLIA [id number] [place] [address] Immature granulocytes/100 WBC (Bld) 0.9 % Normal [facility] Comment on above: Order Comment: Speci men Type: BLOOD SPECIMENOrdering Facility: [facility] Address: [address] [place] [address] Performed By: #### 5 7021-8 ####[facility] LABCLIA [id number] [place] [address] Lymphocytes (Bld) [#/Vol] 0.63 10*3/uL Low 1.00-4.00 [facility] Comment on above: Order Comment: Speci men Type: BLOOD SPECIMENOrdering Facility: [facility] Address: [address] [place] [address] Performed By: #### 5 7021-8 ####[facility] LABCLIA [id number] [place] [address] Lymphocytes/100 WBC (Bld) 10.9 % Normal [facility] Comment on above: Order Comment: Speci men Type: BLOOD SPECIMENOrdering Facility: [facility] Address: [address] [place] [address] Performed By: #### 5 7021-8 ####[facility] LABIA [id number] [place] [address] MCH (RBC) [Entitic mass] 34.0 pg Normal 26.0-34.0 [facility] Comment on above: Order Comment: Speci men Type: BLOOD SPECIMENOrdering Facility: [facility] Address: [address] [place] [address] Performed By: #### 5 7021-8 ####[facility] LABIA [id number] [place] [address] MCHC (RBC) [Mass/Vol] 33.5 g/dL Normal 30.5-36.0 [facility] Comment on above: Order Comment: Speci men Type: BLOOD SPECIMENOrdering Facility: [facility] Address: [address] [place] [address] Performed By: #### 5 7021-8 ####[facility] LABIA [id number] [place] [address] MCV (RBC) [Entitic vol] 101.6 fL High 80.0-100.0 [facility] Comment on above: Order Comment: Speci men Type: BLOOD SPECIMENOrdering Facility: [facility] Address: [address] [place] [address] Performed By: #### 5 7021-8 ####[facility] LABIA [id number] [place] [address] Monocytes (Bld) [#/Vol] 0.64 10*3/uL Normal <0.87 [facility] Comment on above: Order Comment: Speci men Type: BLOOD SPECIMENOrdering Facility: [facility] Address: [address] [place] [address] Performed By: #### 5 7021-8 ####[facility] LABCLIA [id number] [place] [address] Monocytes/100 WBC (Bld) 11.1 % Normal [facility] Comment on above: Order Comment: Speci men Type: BLOOD SPECIMENOrdering Facility: [facility] Address: [address] [place] [address] Performed By: #### 5 7021-8 ####[facility] LABCLIA [id number] [place] [address] Neutrophils (Bld) [#/Vol] 4.30 10*3/uL Normal 1.45-7.50 [facility] Comment on above: Order Comment: Speci men Type: BLOOD SPECIMENOrdering Facility: [facility] Address: [address] [place] [address] Performed By: #### 5 7021-8 ####[facility] LABCLIA [id number] [place] [address] Neutrophils/100 WBC (Bld) 74.2 % Normal [facility] Comment on above: Order Comment: Speci men Type: BLOOD SPECIMENOrdering Facility: [facility] Address: [address] [place] [address] Performed By: #### 5 7021-8 ####[facility] LABCLIA [id number] [place] [address] Nucleated RBC (Bld) [#/Vol] 10*3/uL Normal <0.01 [facility] Comment on above: Order Comment: Speci men Type: BLOOD SPECIMENOrdering Facility: [facility] Address: [address] [place] [address] Performed By: #### 5 7021-8 ####[facility] LABCLIA [id number] [place] [address] Nucleated RBC/100 WBC (Bld) [Ratio] 0.0 /100 WBC Normal [facility] Comment on above: Order Comment: Speci men Type: BLOOD SPECIMENOrdering Facility: [facility] Address: [address] [address] Performed By: #### 5 7021-8 ####[facility] LABCLIA [id number] [place] [address] Platelet mean volume (Bld) [Entitic vol] 10.2 fL Normal 9.0-12.7 [facility] Comment on above: Order Comment: Speci men Type: BLOOD SPECIMENOrdering Facility: [facility] Address: [address] [address] Performed By: #### 5 7021-8 ####[facility] LABCLIA [id number] [place] [address] Platelets (Bld) [#/Vol] 200 10*3/uL Normal 150-400 [facility] Comment on above: Order Comment: Speci men Type: BLOOD SPECIMENOrdering Facility: [facility] Address: [address] [address] Performed By: #### 5 7021-8 ####[facility] LABCLIA [id number] [place] [address] RBC (Bld) [#/Vol] 3.79 10*6/uL Low 4.20-6.00 [facility] Comment on above: Order Comment: Speci men Type: BLOOD SPECIMENOrdering Facility: [facility] Address: [address] [address] Performed By: #### 5 7021-8 ####[facility] LABCLIA [id number] [place] [address] WBC (Bld) [#/Vol] 5.79 10*3/uL Normal 3.70-11.00 [facility] Comment on above: Order Comment: Speci men Type: BLOOD SPECIMENOrdering Facility: [facility] Address: [address] [place] [address] Performed By: #### 5 7021-8 ####[facility] LABCLIA [id number] [place] [address] Basophils (Bld) [#/Vol] 0.04 10*3/uL <0.11 k/uL [facility] Basophils/100 WBC (Bld) 0.7 % [facility] Differential cell count method Nom (Bld) Auto [facility] Eosinophils (Bld) [#/Vol] 0.13 10*3/uL <0.46 k/uL [facility] Eosinophils/100 WBC (Bld) 2.2 % [facility] Erythrocyte distribution width (RBC) [Ratio] 18.9 % High 11.5 - 15.0 % [facility] Hematocrit (Bld) [Volume fraction] 38.5 % Low 39.0 - 51.0 % [facility] Hemoglobin (Bld) [Mass/Vol] 12.9 g/dL Low 13.0 - 17.0 g/dL [facility] Immature granulocytes (Bld) [#/Vol] 0.05 10*3/uL <0.10 k/uL [facility] Immature granulocytes/100 WBC (Bld) 0.9 % [facility] Lymphocytes (Bld) [#/Vol] 0.63 10*3/uL Low 1.00 - 4.00 k/uL [facility] Lymphocytes/100 WBC (Bld) 10.9 % [facility] MCH (RBC) [Entitic mass] 34.0 pg 26.0 - 34.0 pg [facility] MCHC (RBC) [Mass/Vol] 33.5 g/dL 30.5 - 36.0 g/dL [facility] MCV (RBC) [Entitic vol] 101.6 fL High 80.0 - 100.0 fL [facility] Monocytes (Bld) [#/Vol] 0.64 10*3/uL <0.87 k/uL [facility] Monocytes/100 WBC (Bld) 11.1 % [facility] Neutrophils (Bld) [#/Vol] 4.30 10*3/uL 1.45 - 7.50 k/uL [facility] Neutrophils/100 WBC (Bld) 74.2 % [facility] Nucleated RBC (Bld) [#/Vol] <0.01 k/uL [facility] Nucleated RBC/100 WBC (Bld) [Ratio] 0.0 /100 WBC [facility] Platelet mean volume (Bld) [Entitic vol] 10.2 fL 9.0 - 12.7 fL [facility] Platelets (Bld) [#/Vol] 200 10*3/uL 150 - 400 k/uL [facility] RBC (Bld) [#/Vol] 3.79 10*6/uL Low 4.20 - 6.0 0 m/uL [facility] WBC (Bld) [#/Vol] 5.79 10*3/uL 3.70 - 11.00 k/uL [facility] CEA SerPl-mCncon 12-17-2022 Carcinoembryonic Ag [Mass/Vol] 1.7 ng/mL Normal <=2.9 [facility] Comment on above: Order Comment: Speci men Type: BLOOD SPECIMENOrdering Facility: [facility] Address: [address] [phone] Result Comment: Carc inoembryonic antigen test is used as an aid in monitoring response to treatment or recurrence in patients with established colorectal, breast, lung, prostatic, pancreatic, and ovarian carcinomas. Clinical correlation is required.The Carcinoembryonic antigen test was performed using the [employer] Un[employer]el DXI paramagnetic particle chemiluminescent immunoassay method. Results obtained with different assay methods or kits cannot be used interchangeably. Performed By: #### 2 039-6 ####[facility] LABCLIA [id number] [place] [address] [place] CNOVSPon 12-17-2022 CNOVSP Normal [facility] CNPNon 12-17-2022 CNPN Normal [facility] Comprehensive metabolic 2000 panelon 12-17-2022 Albumin [Mass/Vol] 4.0 g/dL Normal 3.9-4.9 [facility] Comment on above: Order Comment: Speci men Type: BLOOD SPECIMENOrdering Facility: [facility] Address: [address] [phone] Performed By: #### 2 4323-8 ####[facility] LABCLIA [id number] [place] [address] ALP [Catalytic activity/Vol] 79 U/L Normal 38-113 [facility] Comment on above: Order Comment: Speci men Type: BLOOD SPECIMENOrdering Facility: [facility] Address: [address] [address] Performed By: #### 2 4323-8 ####[facility] LABCLIA [id number] [place] [address] ALT [Catalytic activity/Vol] 8 U/L Low 10-54 [facility] Comment on above: Order Comment: Speci men Type: BLOOD SPECIMENOrdering Facility: [facility] Address: [address] [address] Performed By: #### 2 4323-8 ####[facility] LABCLIA [id number] [place] [address] Anion gap [Moles/Vol] 5 mmol/L Low 9-18 [facility] Comment on above: Order Comment: Speci men Type: BLOOD SPECIMENOrdering Facility: [facility] Address: [address] [place] [address] Performed By: #### 2 4323-8 ####[facility] LABCLIA [id number] [place] [address] AST [Catalytic activity/Vol] 14 U/L Normal 14-40 [facility] Comment on above: Order Comment: Speci men Type: BLOOD SPECIMENOrdering Facility: [facility] Address: [address] [place] [address] Performed By: #### 2 4323-8 ####[facility] LABCLIA [id number] [place] [address] Bilirubin [Mass/Vol] 0.4 mg/dL Normal 0.2-1.3 [facility] Comment on above: Order Comment: Speci men Type: BLOOD SPECIMENOrdering Facility: [facility] Address: [address] [place] [address] Performed By: #### 2 4323-8 ####[facility] LABCLIA [id number] [place] [address] Calcium [Mass/Vol] 9.1 mg/dL Normal 8.5-10.2 [facility] Comment on above: Order Comment: Speci men Type: BLOOD SPECIMENOrdering Facility: [facility] Address: [address] [address] Performed By: #### 2 4323-8 ####[facility] LABCLIA [id number] [place] [address] Chloride [Moles/Vol] 107 mmol/L High 97-105 [facility] Comment on above: Order Comment: Speci men Type: BLOOD SPECIMENOrdering Facility: [facility] Address: [address] [place] [address] Performed By: #### 2 4323-8 ####[facility] LABCLIA [id number] [place] [address] CO2 [Moles/Vol] 28 mmol/L Normal 22-30 [facility] Comment on above: Order Comment: Speci men Type: BLOOD SPECIMENOrdering Facility: [facility] Address: [address] [place] [address] Performed By: #### 2 4323-8 ####[facility] LABCLIA [id number] [place] [address] Creatinine [Mass/Vol] 1.22 mg/dL Normal 0.73-1.22 [facility] Comment on above: Order Comment: Speci men Type: BLOOD SPECIMENOrdering Facility: [facility] Address: [address] [place] [address] Performed By: #### 2 4323-8 ####[facility] LABCLIA [id number] [place] [address] ESTIMATED GLOMERULAR FILTRATION RATE 64 mL/min/1.73m??? Normal >=60 [facility] Comment on above: Order Comment: Speci men Type: BLOOD SPECIMENOrdering Facility: [facility] Address: [address] [place] [address] Result Comment: Rebekah mated Glomerular Filtration Rate (eGFR) is calculated using the 2020 CKD-EPI creatinine equation. This equation utilizes serum creatinine, sex, and age as parameters. The creatinine assay has traceable calibration to isotope dilution-mass spectrometry. Refer to KDIGO guidelines for clinical interpretation. In patients with unstable renal function, e.g. those with acute kidney injury, the eGFR may not accurately reflect actual GFR. Performed By: #### 2 4323-8 ####[facility] LABCLIA [id number] [place] [address] Glucose [Mass/Vol] 84 mg/dL Normal 74-99 [facility] Comment on above: Order Comment: Nazario brooks Type: BLOOD SPECIMENOrdering Facility: [facility] Address: [address] [place] [address] Result Comment: The [place] Diabetes [employer] (ADA) provides guidance for cutoff values for fasting glucose and random glucose. The ADA defines fasting as no caloric intake for at least 8 hours. Fasting plasma glucose results between 100 to 125 mg/dL indicate increased risk for diabetes (prediabetes).Fasting plasma glucose results greater than or equal to 126 mg/dL meet the criteria for diagnosis of diabetes. In the absence of unequivocal hyperglycemia, results should be confirmed by repeat testing. In a patient with classic symptoms of hyperglycemia or hyperglycemic crisis, random plasma glucose results greater than or equal to 200 mg/dL meet the criteria for diagnosis of diabetes.Reference: Standards of Medical Care in Diabetes 2016, [place] [employer] Association. Diabetes Care. 2016.39(Suppl 1). Performed By: #### 2 4323-8 ####[facility] LABCLIA [id number] [place] [address] Potassium [Moles/Vol] 4.0 mmol/L Normal 3.7-5.1 [facility] Comment on above: Order Comment: Nazario brooks Type: BLOOD SPECIMENOrdering Facility: [facility] Address: [address] [place], [place] [phone] Performed By: #### 2 4323-8 ####[facility] LABCLIA [id number] [place] [address] Protein [Mass/Vol] 6.2 g/dL Low 6.3-8.0 [facility] Comment on above: Order Comment: Speci men Type: BLOOD SPECIMENOrdering Facility: [facility] Address: [address] [address] Performed By: #### 2 4323-8 ####[facility] LABCLIA [id number] [place] [address] Sodium [Moles/Vol] 140 mmol/L Normal 136-144 [facility] Comment on above: Order Comment: Speci men Type: BLOOD SPECIMENOrdering Facility: [facility] Address: [address] [address] Performed By: #### 2 4323-8 ####[facility] LABCLIA [id number] [place] [address] Urea nitrogen [Mass/Vol] 19 mg/dL Normal 9-24 [facility] Comment on above: Order Comment: Speci men Type: BLOOD SPECIMENOrdering Facility: [facility] Address: [address] [address] Performed By: #### 2 4323-8 ####[facility] LABCLIA [id number] [place] [address] Albumin [Mass/Vol] 4.0 g/dL 3.9 - 4.9 g/dL [facility] ALP [Catalytic activity/Vol] 79 U/L 38 - 113 U/L [facility] ALT [Catalytic activity/Vol] 8 U/L Low 10 - 54 U/L [facility] Anion gap [Moles/Vol] 5 mmol/L Low 9 - 18 mmol/L [facility] AST [Catalytic activity/Vol] 14 U/L 14 - 40 U/L [facility] Bilirubin [Mass/Vol] 0.4 mg/dL 0.2 - 1 .3 mg/dL [facility] Calcium [Mass/Vol] 9.1 mg/dL 8.5 - 10. 2 mg/dL [facility] Chloride [Moles/Vol] 107 mmol/L High 97 - 10 5 mmol/L [facility] CO2 [Moles/Vol] 28 mmol/L 22 - 30 mmol/L [facility] Creatinine [Mass/Vol] 1.22 mg/dL 0.73 - 1.22 mg/dL [facility] Estimated Glomerular Filtration Rate 64 mL/min/1.73m >=60 mL/min/1.73 m [facility] Glucose [Mass/Vol] 84 mg/dL 74 - 99 mg/dL [facility] Potassium [Moles/Vol] 4.0 mmol/L 3.7 - 5.1 mmol/L [facility] Protein [Mass/Vol] 6.2 g/dL Low 6.3 - 8.0 g/dL [facility] Sodium [Moles/Vol] 140 mmol/L 136 - 144 mmol/L [facility] Urea nitrogen [Mass/Vol] 19 mg/dL 9 - 24 mg/dL [facility] Consultation Noteon 12-14-19 Consultation Note [id number]#1.00C D:127 Normal [facility] CNOVon 12-10-2022 CNOV Normal [facility] CT ABD/PEL W IVCONon 023 CT ABD/PEL W IVCON Normal [facility] CT CHEST W IVCONon 3 CT CHEST W IVCON Normal [facility] Consultation Noteon 11-24-19 Consultation Note [id number]#1.00C D:127 Normal [facility] CNPNon 11-20-2022 CNPN Normal [facility] CBC W Auto Differential pane l (Bld)on 11-19-2022 Basophils (Bld) [#/Vol] 0.04 10*3/uL Normal <0.11 [facility] Comment on above: Order Comment: Speci men Type: BLOOD SPECIMENOrdering Facility: [facility] Address: [address] [place] [phone] Performed By: #### 5 7021-8 ####[facility] LABCLIA [id number] [place] [address] Basophils/100 WBC (Bld) 0.5 % Normal [facility] Comment on above: Order Comment: Speci men Type: BLOOD SPECIMENOrdering Facility: [facility] Address: [address] [place] [address] Performed By: #### 5 7021-8 ####[facility] LABCLIA [id number] [place] [address] Differential cell count method Nom (Bld) Auto Normal [facility] Comment on above: Order Comment: Speci men Type: BLOOD SPECIMENOrdering Facility: [facility] Address: [address] [place] [address] Performed By: #### 5 7021-8 ####[facility] LABCLIA [id number] [place] [address] Eosinophils (Bld) [#/Vol] 0.55 10*3/uL High <0.46 [facility] Comment on above: Order Comment: Speci men Type: BLOOD SPECIMENOrdering Facility: [facility] Address: [address] [place] [address] Performed By: #### 5 7021-8 ####[facility] LABIA [id number] [place] [address] Eosinophils/100 WBC (Bld) 6.5 % Normal [facility] Comment on above: Order Comment: Speci men Type: BLOOD SPECIMENOrdering Facility: [facility] Address: [address] [place] [address] Performed By: #### 5 7021-8 ####[facility] LABCLIA [id number] [place] [address] Erythrocyte distribution width (RBC) [Ratio] 19.1 % High 11.5-15.0 [facility] Comment on above: Order Comment: Speci men Type: BLOOD SPECIMENOrdering Facility: [facility] Address: [address] [place] [address] Performed By: #### 5 7021-8 ####[facility] LABCLIA [id number] [place] [address] Hematocrit (Bld) [Volume fraction] 38.1 % Low 39.0-51.0 [facility] Comment on above: Order Comment: Speci men Type: BLOOD SPECIMENOrdering Facility: [facility] Address: [address] [place] [address] Performed By: #### 5 7021-8 ####[facility] LABIA [id number] [place] [address] Hemoglobin (Bld) [Mass/Vol] 12.8 g/dL Low 13.0-17.0 [facility] Comment on above: Order Comment: Speci men Type: BLOOD SPECIMENOrdering Facility: [facility] Address: [address] [place] [address] Performed By: #### 5 7021-8 ####[facility] LABIA [id number] [place] [address] Immature granulocytes (Bld) [#/Vol] 0.04 10*3/uL Normal <0.10 [facility] Comment on above: Order Comment: Speci men Type: BLOOD SPECIMENOrdering Facility: [facility] Address: [address] [place] [address] Performed By: #### 5 7021-8 ####[facility] LABIA [id number] [place] [address] Immature granulocytes/100 WBC (Bld) 0.5 % Normal [facility] Comment on above: Order Comment: Speci men Type: BLOOD SPECIMENOrdering Facility: [facility] Address: [address] [place] [address] Performed By: #### 5 7021-8 ####[facility] LABIA [id number] [place] [address] Lymphocytes (Bld) [#/Vol] 0.47 10*3/uL Low 1.00-4.00 [facility] Comment on above: Order Comment: Speci men Type: BLOOD SPECIMENOrdering Facility: [facility] Address: [address] [address] Performed By: #### 5 7021-8 ####[facility] LABCLIA [id number] [place] [address] Lymphocytes/100 WBC (Bld) 5.5 % Normal [facility] Comment on above: Order Comment: Speci men Type: BLOOD SPECIMENOrdering Facility: [facility] Address: [address] [place] [address] Performed By: #### 5 7021-8 ####[facility] LABCLIA [id number] [place] [address] MCH (RBC) [Entitic mass] 33.2 pg Normal 26.0-34.0 [facility] Comment on above: Order Comment: Speci men Type: BLOOD SPECIMENOrdering Facility: [facility] Address: [address] [place] [address] Performed By: #### 5 7021-8 ####[facility] LABCLIA [id number] [place] [address] MCHC (RBC) [Mass/Vol] 33.6 g/dL Normal 30.5-36.0 [facility] Comment on above: Order Comment: Speci men Type: BLOOD SPECIMENOrdering Facility: [facility] Address: [address] [place] [address] Performed By: #### 5 7021-8 ####[facility] LABCLIA [id number] [place] [address] MCV (RBC) [Entitic vol] 98.7 fL Normal 80.0-100.0 [facility] Comment on above: Order Comment: Speci men Type: BLOOD SPECIMENOrdering Facility: [facility] Address: [address] [place] [address] Performed By: #### 5 7021-8 ####[facility] LABCLIA [id number] [place] [address] Monocytes (Bld) [#/Vol] 0.78 10*3/uL Normal <0.87 [facility] Comment on above: Order Comment: Speci men Type: BLOOD SPECIMENOrdering Facility: [facility] Address: [address] [place] [address] Performed By: #### 5 7021-8 ####[facility] LABCLIA [id number] [place] [address] Monocytes/100 WBC (Bld) 9.2 % Normal [facility] Comment on above: Order Comment: Speci men Type: BLOOD SPECIMENOrdering Facility: [facility] Address: [address] [place] [address] Performed By: #### 5 7021-8 ####[facility] LABCLIA [id number] [place] [address] Neutrophils (Bld) [#/Vol] 6.61 10*3/uL Normal 1.45-7.50 [facility] Comment on above: Order Comment: Speci men Type: BLOOD SPECIMENOrdering Facility: [facility] Address: [address] [place] [address] Performed By: #### 5 7021-8 ####[facility] LABCLIA [id number] [place] [address] Neutrophils/100 WBC (Bld) 77.8 % Normal [facility] Comment on above: Order Comment: Speci men Type: BLOOD SPECIMENOrdering Facility: [facility] Address: [address] [address] Performed By: #### 5 7021-8 ####[facility] LABCLIA [id number] [place] [address] Nucleated RBC (Bld) [#/Vol] 10*3/uL Normal <0.01 [facility] Comment on above: Order Comment: Speci men Type: BLOOD SPECIMENOrdering Facility: [facility] Address: [address] [place] [address] Performed By: #### 5 7021-8 ####[facility] LABCLIA [id number] [place] [address] Nucleated RBC/100 WBC (Bld) [Ratio] 0.0 /100 WBC Normal [facility] Comment on above: Order Comment: Speci men Type: BLOOD SPECIMENOrdering Facility: [facility] Address: [address] [place] [address] Performed By: #### 5 7021-8 ####[facility] LABCLIA [id number] [place] [address] Platelet mean volume (Bld) [Entitic vol] 9.5 fL Normal 9.0-12.7 [facility] Comment on above: Order Comment: Speci men Type: BLOOD SPECIMENOrdering Facility: [facility] Address: [address] [place] [address] Performed By: #### 5 7021-8 ####[facility] LABIA [id number] [place] [address] Platelets (Bld) [#/Vol] 171 10*3/uL Normal 150-400 [facility] Comment on above: Order Comment: Speci men Type: BLOOD SPECIMENOrdering Facility: [facility] Address: [address] [place] [address] Performed By: #### 5 7021-8 ####[facility] LABCLIA [id number] [place] [address] RBC (Bld) [#/Vol] 3.86 10*6/uL Low 4.20-6.00 [facility] Comment on above: Order Comment: Speci men Type: BLOOD SPECIMENOrdering Facility: [facility] Address: [address] [place] [address] Performed By: #### 5 7021-8 ####[facility] LABCLIA [id number] [place] [address] WBC (Bld) [#/Vol] 8.49 10*3/uL Normal 3.70-11.00 [facility] Comment on above: Order Comment: Speci men Type: BLOOD SPECIMENOrdering Facility: [facility] Address: [address] [address] Performed By: #### 5 7021-8 ####[facility] LABCLIA [id number] [place] [address] CEA SerPl-mCncon 11-19-2022 Carcinoembryonic Ag [Mass/Vol] 3.7 ng/mL High <=2.9 [facility] Comment on above: Order Comment: Speci men Type: BLOOD SPECIMENOrdering Facility: [facility] Address: [address] [address] Result Comment: Carc inoembryonic antigen test is used as an aid in monitoring response to treatment or recurrence in patients with established colorectal, breast, lung, prostatic, pancreatic, and ovarian carcinomas. Clinical correlation is required.The Carcinoembryonic antigen test was performed using the [employer] Un[employer]el DXI paramagnetic particle chemiluminescent immunoassay method. Results obtained with different assay methods or kits cannot be used interchangeably. Performed By: #### 2 039-6 ####[facility]CLIA [id number] [place] [address] [place] CNOVon 11-19-2022 CNOV Normal [facility] CNOVSPon 11-19-2022 CNOVSP Normal [facility] Comprehensive metabolic 2000 panelon 11-19-2022 Albumin [Mass/Vol] 4.1 g/dL Normal 3.9-4.9 [facility] Comment on above: Order Comment: Speci men Type: BLOOD SPECIMENOrdering Facility: [facility] Address: [address] [place] [address] Performed By: #### 2 4323-8 ####[facility] LABCLIA [id number] [place] [address] ALP [Catalytic activity/Vol] 70 U/L Normal 38-113 [facility] Comment on above: Order Comment: Speci men Type: BLOOD SPECIMENOrdering Facility: [facility] Address: [address] [address] Performed By: #### 2 4323-8 ####[facility] LABCLIA [id number] [place] [address] ALT [Catalytic activity/Vol] 10 U/L Normal 10-54 [facility] Comment on above: Order Comment: Speci men Type: BLOOD SPECIMENOrdering Facility: [facility] Address: [address] [address] Performed By: #### 2 4323-8 ####[facility] LABCLIA [id number] [place] [address] Anion gap [Moles/Vol] 9 mmol/L Normal 9-18 [facility] Comment on above: Order Comment: Speci men Type: BLOOD SPECIMENOrdering Facility: [facility] Address: [address] [address] Performed By: #### 2 4323-8 ####[facility] LABCLIA [id number] [place] [address] AST [Catalytic activity/Vol] 15 U/L Normal 14-40 [facility] Comment on above: Order Comment: Speci men Type: BLOOD SPECIMENOrdering Facility: [facility] Address: [address] [address] Performed By: #### 2 4323-8 ####[facility] LABCLIA [id number] [place] [address] Bilirubin [Mass/Vol] 0.7 mg/dL Normal 0.2-1.3 [facility] Comment on above: Order Comment: Speci men Type: BLOOD SPECIMENOrdering Facility: [facility] Address: [address] [place] [address] Performed By: #### 2 4323-8 ####[facility] LABCLIA [id number] [place] [address] Calcium [Mass/Vol] 9.3 mg/dL Normal 8.5-10.2 [facility] Comment on above: Order Comment: Speci men Type: BLOOD SPECIMENOrdering Facility: [facility] Address: [address] [address] Performed By: #### 2 4323-8 ####[facility] LABCLIA [id number] [place] [address] Chloride [Moles/Vol] 105 mmol/L Normal 97-105 [facility] Comment on above: Order Comment: Speci men Type: BLOOD SPECIMENOrdering Facility: [facility] Address: [address] [place] [address] Performed By: #### 2 4323-8 ####[facility] LABCLIA [id number] [place] [address] CO2 [Moles/Vol] 28 mmol/L Normal 22-30 [facility] Comment on above: Order Comment: Speci men Type: BLOOD SPECIMENOrdering Facility: [facility] Address: [address] [place] [address] Performed By: #### 2 4323-8 ####[facility] LABCLIA [id number] [place] [address] Creatinine [Mass/Vol] 1.51 mg/dL High 0.73-1.22 [facility] Comment on above: Order Comment: Speci men Type: BLOOD SPECIMENOrdering Facility: [facility] Address: [address] [place] [address] Performed By: #### 2 4323-8 ####[facility] LABCLIA [id number] [place] [address] ESTIMATED GLOMERULAR FILTRATION RATE 49 mL/min/1.73m??? Low >=60 [facility] Comment on above: Order Comment: Speci men Type: BLOOD SPECIMENOrdering Facility: [facility] Address: [address] [place] [address] Result Comment: Rebekah mated Glomerular Filtration Rate (eGFR) is calculated using the 2020 CKD-EPI creatinine equation. This equation utilizes serum creatinine, sex, and age as parameters. The creatinine assay has traceable calibration to isotope dilution-mass spectrometry. Refer to KDIGO guidelines for clinical interpretation. In patients with unstable renal function, e.g. those with acute kidney injury, the eGFR may not accurately reflect actual GFR. Performed By: #### 2 4323-8 ####[facility] LABCLIA [id number] [place] [address] Glucose [Mass/Vol] 113 mg/dL High 74-99 [facility] Comment on above: Order Comment: Specamador brooks Type: BLOOD SPECIMENOrdering Facility: [facility] Address: [address] [place], [place] [address] Result Comment: The [place] Diabetes Association (ADA) provides guidance for cutoff values for fasting glucose and random glucose. The ADA defines fasting as no caloric intake for at least 8 hours. Fasting plasma glucose results between 100 to 125 mg/dL indicate increased risk for diabetes (prediabetes).Fasting plasma glucose results greater than or equal to 126 mg/dL meet the criteria for diagnosis of diabetes. In the absence of unequivocal hyperglycemia, results should be confirmed by repeat testing. In a patient with classic symptoms of hyperglycemia or hyperglycemic crisis, random plasma glucose results greater than or equal to 200 mg/dL meet the criteria for diagnosis of diabetes.Reference: Standards of Medical Care in Diabetes 2016, [place] Diabetes Association. Diabetes Care. 2016.39(Suppl 1). Performed By: #### 2 4323-8 ####[facility] LABCLIA [id number] [place] [address] Potassium [Moles/Vol] 3.5 mmol/L Low 3.7-5.1 [facility] Comment on above: Order Comment: Nazario brooks Type: BLOOD SPECIMENOrdering Facility: [facility] Address: [address] [place] [phone] Performed By: #### 2 4323-8 ####[facility] LABCLIA [id number] [place] [address] Protein [Mass/Vol] 6.1 g/dL Low 6.3-8.0 [facility] Comment on above: Order Comment: Speci men Type: BLOOD SPECIMENOrdering Facility: [facility] Address: [address] [place] [address] Performed By: #### 2 4323-8 ####[facility] LABCLIA [id number] [place] [address] Sodium [Moles/Vol] 142 mmol/L Normal 136-144 [facility] Comment on above: Order Comment: Speci men Type: BLOOD SPECIMENOrdering Facility: [facility] Address: [address] [place] [address] Performed By: #### 2 4323-8 ####[facility] LABCLIA [id number] [place] [address] Urea nitrogen [Mass/Vol] 21 mg/dL Normal 9-24 [facility] Comment on above: Order Comment: Speci men Type: BLOOD SPECIMENOrdering Facility: [facility] Address: [address] [place] [address] Performed By: #### 2 4323-8 ####[facility] LABCLIA [id number] [place] [address] CBC w/Indiceson 11-16-2022 Erythrocyte distribution width (RBC) [Ratio] 18.5 % High 10.9-14.2 [facility] Comment on above: Performed By: #### 2 912620, 93358899, 4452814, 99160314 ####[facility] [address] [place] [address] Hematocrit (Bld) [Volume fraction] 39.8 % Normal 37.7-49.0 [facility] Comment on above: Performed By: #### 2 785824, 80077974, 5032174, 51171004 ####[facility] [address] [place] [address] Hemoglobin (Bld) [Mass/Vol] 13.0 g/dL Low 13.5-17.5 [facility] Comment on above: Performed By: #### 2 977131, 28289193, 8294104, 45969154 ####[address] [address] MCH (RBC) [Entitic mass] 32.3 pg Normal 27.0-34.0 [facility] Comment on above: Performed By: #### 2 242944, 93166817, 9009306, 20469740 ####[address] [address] MCHC (RBC) [Mass/Vol] 32.6 g/dL Normal 31.4-36.0 [facility] Comment on above: Performed By: #### 2 863587, 58941220, 6851862, 36567620 ####[address] [address] MCV (RBC) [Entitic vol] 99.3 fL Normal 80.0-100.0 [facility] Comment on above: Performed By: #### 2 122434, 55192926, 3585286, 68082255 ####[address] [address] Platelet mean volume (Bld) [Entitic vol] 8.3 fL Normal 6.4-10.8 [facility] Comment on above: Performed By: #### 2 104010, 12762710, 2248207, 00512482 ####[address] [address] Platelets (Bld) [#/Vol] 178.0 E9/L Normal 150.0-500.0 [facility] Comment on above: Performed By: #### 2 376050, 80297078, 8916597, 43418687 ####[address] [address] RBC (Bld) [#/Vol] 4.0 E12/L Low 4.3-5.9 [facility] Comment on above: Performed By: #### 2 879727, 34641475, 3454033, 45754002 ####[facility] [address] [place] [address] WBC corrected for nucl RBC Auto (Bld) [#/Vol] 6.4 E9/L Normal 4.0-11.0 [facility] Comment on above: Performed By: #### 2 187510, 41534410, 3769303, 26962707 ####[facility] [address] [place] [address] CHEMISTRYOrdered By: SYSTEM SYSTEM on 11-16-2022 Albumin [Mass/Vol] 3.9 g/dL Normal 3.3 - 5.0 gm/dL [facility] Albumin/Globulin [Mass ratio] 1.7 {ratio} Normal 1.1 - 2.2 [facility] ALP [Catalytic activity/Vol] 58 [iU]/d Normal 21 - 98 Int._Unit/L [facility] ALT No additional P-5'-P [Catalytic activity/Vol] 16 [iU]/d Normal 6 - 46 Int._Unit/L [facility] Anion gap [Moles/Vol] 10 mmol/L Normal 6 - 16 mEq/L [facility] AST [Catalytic activity/Vol] 19 [iU]/d Normal 5 - 43 Int._Unit/L [facility] Bilirubin [Mass/Vol] 1.0 mg/dL Normal 0.0 - 1 .1 mg/dL [facility] Calcium [Mass/Vol] 9.3 mg/dL Normal 8.9 - 11. 1 mg/dL [facility] Chloride [Moles/Vol] 105 mmol/L Normal 101 - 1 11 mmol/L [facility] CO2 [Moles/Vol] 31 mmol/L Normal 21 - 31 mmol/L [facility] Creatinine [Mass/Vol] 1.4 mg/dL High 0.5 - 1.3 mg/dL [facility] GFR/1.73 sq M.predicted among blacks MDRD (S/P/Bld) [Vol rate/Area] mL/min/1.73 m2 Normal >=59mL/min/ 1.73 m2 [facility] S GFR/1.73 sq M.predicted among non-blacks MDRD (S/P/Bld) [Vol rate/Area] 50 mL/min/1.73 m2 Low >=59mL/min/ 1.73 m2 [facility] Chem S Globulin (S) [Mass/Vol] 2.3 g/dL Normal 1.4 - 4.0 gm/dL [facility] Remisol Glucose [Mass/Vol] 102 mg/dL Normal 55 - 199 mg/dL [facility] Remisol Potassium [Moles/Vol] 3.7 mmol/L Normal 3.5 - 5.3 mmol/L [facility] Remisol Protein [Mass/Vol] 6.2 g/dL Normal 6.0 - 7.8 gm/dL [facility] Remisol Sodium [Moles/Vol] 142 mmol/L Normal 135 - 145 mmol/L [facility] Remisol Urea nitrogen [Mass/Vol] 17 mg/dL Normal 5 - 21 mg/dL [facility] Remisol Urea nitrogen/Creatinine [Mass ratio] 12 mg/mg Normal 10 - 20 [facility] Remisol CMPon 11-16-2022 Albumin [Mass/Vol] 3.9 g/dL Normal 3.3-5.0 [facility] Comment on above: Performed By: #### 2 553184, 68623906, 4887797, 89078487 ####[facility] [address] [place] [address] Albumin/Globulin (S) [Mass conc ratio] 1.7 Normal 1.1-2.2 [facility] Comment on above: Performed By: #### 2 869925, 18612147, 4993972, 64700560 ####[facility] [address] [place] [address] ALP [Catalytic activity/Vol] 58 Int._Unit/L Normal 21-98 [facility] Comment on above: Performed By: #### 2 795642, 78813340, 7995209, 44637155 ####[facility] [address] [place] [address] ALT No additional P-5'-P [Catalytic activity/Vol] 16 Int._Unit/L Normal 6-46 [facility] Comment on above: Performed By: #### 2 938426, 43193797, 0352399, 60919630 ####[facility] [address] [place] [address] Anion gap [Moles/Vol] 10 mmol/L Normal 6-16 [facility] Comment on above: Performed By: #### 2 855119, 41565688, 3848192, 80797706 ####[facility] [address] [place] [address] AST [Catalytic activity/Vol] 19 Int._Unit/L Normal 5-43 [facility] Comment on above: Performed By: #### 2 748225, 53364688, 8167174, 31478741 ####[facility] [address] [place] [address] Bilirubin [Mass/Vol] 1.0 mg/dL Normal 0.0-1.1 [facility] Comment on above: Performed By: #### 2 743038, 02331102, 9400810, 60632483 ####[facility] [address] [place] [address] Calcium [Mass/Vol] 9.3 mg/dL Normal 8.9-11.1 [facility] Comment on above: Performed By: #### 2 392555, 88840505, 5371194, 84627660 ####[facility] [address] [place] [address] Chloride [Moles/Vol] 105 mmol/L Normal 101-111 [facility] Comment on above: Performed By: #### 2 468736, 11404660, 8037181, 97575397 ####[facility] [address] [place] [address] CO2 [Moles/Vol] 31 mmol/L Normal 21-31 [facility] Comment on above: Performed By: #### 2 303143, 19995713, 3993783, 32126358 ####[facility] [address] [place] [address] Creatinine [Mass/Vol] 1.4 mg/dL High 0.5-1.3 [facility] Comment on above: Performed By: #### 2 343230, 24313066, 5057315, 05271678 ####[facility] [address] [place] [address] Globulin (S) [Mass/Vol] 2.3 g/dL Normal 1.4-4.0 [facility] Comment on above: Performed By: #### 2 135264, 10675948, 1044083, 12315481 ####[facility] [address] [place] [address] Glucose [Mass/Vol] 102 mg/dL Normal 55-199 [facility] Comment on above: Result Comment: If t his glucose result represents a fasting glucose, interpretation should refer to the following reference range: 55-99 mg/dL Performed By: #### 2 541148, 91274618, 5452533, 05178971 ####[facility] [address] [place] [address] Potassium [Moles/Vol] 3.7 mmol/L Normal 3.5-5.3 [facility] Comment on above: Performed By: #### 2 792262, 20669724, 4101876, 71277391 ####[facility] [address] [place] [address] Protein [Mass/Vol] 6.2 g/dL Normal 6.0-7.8 [facility] Comment on above: Performed By: #### 2 463704, 75750287, 5139150, 15330681 ####[facility] [address] [place] [address] Sodium [Moles/Vol] 142 mmol/L Normal 135-145 [facility] Comment on above: Performed By: #### 2 783207, 05043662, 9812790, 78254867 ####[facility] [address] [place] [address] Urea nitrogen [Mass/Vol] 17 mg/dL Normal 5-21 [facility] Comment on above: Performed By: #### 2 396847, 93115921, 8544860, 68828486 ####[facility] [address] [place] [address] Urea nitrogen/Creatinine [Mass ratio] 12 No Units Normal 10-20 [facility] Comment on above: Performed By: #### 2 585357, 87595522, 3137478, 50430473 ####[facility] [address] [place] [address] HEMATOLOGYOrdered By: Sonam Aponte on 11-16-2022 Erythrocyte distribution width (RBC) [Ratio] 18.5 % High 10.9 - 14.2 % [facility]eAutoSS Hematocrit (Bld) [Volume fraction] 39.8 % Normal 37.7 - 49.0 % [facility]eAuto[facility] Hemoglobin (Bld) [Mass/Vol] 13.0 g/dL Low 13.5 - 17.5 gm/dL [facility]eAuto[facility] MCH (RBC) [Entitic mass] 32.3 pg Normal 27.0 - 34.0 pg [facility]Auto[facility] MCHC (RBC) [Mass/Vol] 32.6 g/dL Normal 31.4 - 36.0 gm/dL [facility] MCV (RBC) [Entitic vol] 99.3 fL Normal 80.0 - 100.0 fL [facility] Platelet mean volume (Bld) [Entitic vol] 8.3 fL Normal 6.4 - 10.8 fL [facility] Platelets (Bld) [#/Vol] 178.0 E9/L Normal 150.0 - 500.0 E9/L [facility] RBC (Bld) [#/Vol] 4.0 E12/L Low 4.3 - 5.9 E12/L [facility] Sed Rate Automated 8 mm/h Normal 0 - 19 mm/hr [facility] WBC corrected for nucl RBC Auto (Bld) [#/Vol] 6.4 E9/L Normal 4.0 - 11.0 E9/L [facility] Sed Rate Automatedon 023 Sed Rate Automated 8 mm/hr Normal 0-19 [facility] Comment on above: Performed By: #### 2 366836, 59873963, 0819908, 38671874 ####[facility] [address] [place] [address] eGFRon 11-16-2022 GFR/1.73 sq M.predicted among blacks MDRD (S/P/Bld) [Vol rate/Area] mL/min/{1.73_m2} Normal >=59 [facility] Comment on above: Order Comment: Order added by Discern Expert. Result Comment: eGFR is race adjusted. AA=. Performed By: #### 2 706345, 54581125, 4310006, 77889239 ####[facility] [address] [place] [address] GFR/1.73 sq M.predicted among non-blacks MDRD (S/P/Bld) [Vol rate/Area] 50 mL/min/1.73 m2 Low >=59 [facility] Comment on above: Order Comment: Order added by Discern Expert. Result Comment: Organisation And Methods Analyst bethany kidney disease could be indicated at eGFR's of less than 60 mL/min/1.73m2. Kidney failure is indicated at less than 15 mL/min/1.73m2. Performed By: #### 2 928335, 02229172, 6837768, 40681269 ####[facility] [address] [place] [address] CNOVon 11-15-2022 CNOV Normal [facility] CNOVon 11-12-2022 CNOV Normal [facility] CBC W Auto Differential pane l (Bld)on 11-08-2022 Basophils (Bld) [#/Vol] 0.04 10*3/uL Normal <0.11 [facility] Comment on above: Order Comment: Speci men Type: BLOOD SPECIMENOrdering Facility: [facility] Address: [address] [place] [address] Performed By: #### 5 7021-8 ####[facility] LABCLIA [id number] [place] [address] Basophils/100 WBC (Bld) 0.7 % Normal [facility] Comment on above: Order Comment: Speci men Type: BLOOD SPECIMENOrdering Facility: [facility] Address: [address] [place] [address] Performed By: #### 5 7021-8 ####[facility] LABCLIA [id number] [place] [address] Differential cell count method Nom (Bld) Auto Normal [facility] Comment on above: Order Comment: Speci men Type: BLOOD SPECIMENOrdering Facility: [facility] Address: [address] [place] [address] Performed By: #### 5 7021-8 ####[facility] LABCLIA [id number] [place] [address] Eosinophils (Bld) [#/Vol] 0.18 10*3/uL Normal <0.46 [facility] Comment on above: Order Comment: Speci men Type: BLOOD SPECIMENOrdering Facility: [facility] Address: [address] [address] Performed By: #### 5 7021-8 ####[facility] LABIA [id number] [place] [address] Eosinophils/100 WBC (Bld) 3.1 % Normal [facility] Comment on above: Order Comment: Speci men Type: BLOOD SPECIMENOrdering Facility: [facility] Address: [address] [place] [address] Performed By: #### 5 7021-8 ####[facility] LABCLIA [id number] [place] [address] Erythrocyte distribution width (RBC) [Ratio] 17.3 % High 11.5-15.0 [facility] Comment on above: Order Comment: Speci men Type: BLOOD SPECIMENOrdering Facility: [facility] Address: [address] [place] [address] Performed By: #### 5 7021-8 ####[facility] LABCLIA [id number] [place] [address] Hematocrit (Bld) [Volume fraction] 36.9 % Low 39.0-51.0 [facility] Comment on above: Order Comment: Speci men Type: BLOOD SPECIMENOrdering Facility: [facility] Address: [address] [place] [address] Performed By: #### 5 7021-8 ####[facility] LABIA [id number] [place] [address] Hemoglobin (Bld) [Mass/Vol] 12.3 g/dL Low 13.0-17.0 [facility] Comment on above: Order Comment: Speci men Type: BLOOD SPECIMENOrdering Facility: [facility] Address: [address] [place] [address] Performed By: #### 5 7021-8 ####[facility] LABIA [id number] [place] [address] Immature granulocytes (Bld) [#/Vol] 0.04 10*3/uL Normal <0.10 [facility] Comment on above: Order Comment: Speci men Type: BLOOD SPECIMENOrdering Facility: [facility] Address: [address] [place] [address] Performed By: #### 5 7021-8 ####[facility] LABIA [id number] [place] [address] Immature granulocytes/100 WBC (Bld) 0.7 % Normal [facility] Comment on above: Order Comment: Speci men Type: BLOOD SPECIMENOrdering Facility: [facility] Address: [address] [place] [address] Performed By: #### 5 7021-8 ####[facility] LABIA [id number] [place] [address] Lymphocytes (Bld) [#/Vol] 0.34 10*3/uL Low 1.00-4.00 [facility] Comment on above: Order Comment: Speci men Type: BLOOD SPECIMENOrdering Facility: [facility] Address: [address] [address] Performed By: #### 5 7021-8 ####[facility] LABCLIA [id number] [place] [address] Lymphocytes/100 WBC (Bld) 5.9 % Normal [facility] Comment on above: Order Comment: Speci men Type: BLOOD SPECIMENOrdering Facility: [facility] Address: [address] [place] [address] Performed By: #### 5 7021-8 ####[facility] LABCLIA [id number] [place] [address] MCH (RBC) [Entitic mass] 32.5 pg Normal 26.0-34.0 [facility] Comment on above: Order Comment: Speci men Type: BLOOD SPECIMENOrdering Facility: [facility] Address: [address] [place] [address] Performed By: #### 5 7021-8 ####[facility] LABCLIA [id number] [place] [address] MCHC (RBC) [Mass/Vol] 33.3 g/dL Normal 30.5-36.0 [facility] Comment on above: Order Comment: Speci men Type: BLOOD SPECIMENOrdering Facility: [facility] Address: [address] [place] [address] Performed By: #### 5 7021-8 ####[facility] LABCLIA [id number] [place] [address] MCV (RBC) [Entitic vol] 97.4 fL Normal 80.0-100.0 [facility] Comment on above: Order Comment: Speci men Type: BLOOD SPECIMENOrdering Facility: [facility] Address: [address] [place] [address] Performed By: #### 5 7021-8 ####[facility] LABCLIA [id number] [place] [address] Monocytes (Bld) [#/Vol] 0.55 10*3/uL Normal <0.87 [facility] Comment on above: Order Comment: Speci men Type: BLOOD SPECIMENOrdering Facility: [facility] Address: [address] [address] Performed By: #### 5 7021-8 ####[facility] LABCLIA [id number] [place] [address] Monocytes/100 WBC (Bld) 9.5 % Normal [facility] Comment on above: Order Comment: Speci men Type: BLOOD SPECIMENOrdering Facility: [facility] Address: [address] [place] [address] Performed By: #### 5 7021-8 ####[facility] LABCLIA [id number] [place] [address] Neutrophils (Bld) [#/Vol] 4.62 10*3/uL Normal 1.45-7.50 [facility] Comment on above: Order Comment: Speci men Type: BLOOD SPECIMENOrdering Facility: [facility] Address: [address] [place] [address] Performed By: #### 5 7021-8 ####[facility] LABCLIA [id number] [place] [address] Neutrophils/100 WBC (Bld) 80.1 % Normal [facility] Comment on above: Order Comment: Speci men Type: BLOOD SPECIMENOrdering Facility: [facility] Address: [address] [address] Performed By: #### 5 7021-8 ####[facility] LABCLIA [id number] [place] [address] Nucleated RBC (Bld) [#/Vol] 10*3/uL Normal <0.01 [facility] Comment on above: Order Comment: Speci men Type: BLOOD SPECIMENOrdering Facility: [facility] Address: [address] [place] [address] Performed By: #### 5 7021-8 ####[facility] LABCLIA [id number] [place] [address] Nucleated RBC/100 WBC (Bld) [Ratio] 0.0 /100 WBC Normal [facility] Comment on above: Order Comment: Speci men Type: BLOOD SPECIMENOrdering Facility: [facility] Address: [address] [place] [address] Performed By: #### 5 7021-8 ####[facility] LABCLIA [id number] [place] [address] Platelet mean volume (Bld) [Entitic vol] 9.3 fL Normal 9.0-12.7 [facility] Comment on above: Order Comment: Speci men Type: BLOOD SPECIMENOrdering Facility: [facility] [facility] Address: [address] [place] [address] Performed By: #### 5 7021-8 ####[facility] LABCLIA [id number] [place] [address] Platelets (Bld) [#/Vol] 157 10*3/uL Normal 150-400 [facility] Comment on above: Order Comment: Speci men Type: BLOOD SPECIMENOrdering Facility: [facility] Address: [address] [place] [address] Performed By: #### 5 7021-8 ####[facility] LABCLIA [id number] [place] [address] RBC (Bld) [#/Vol] 3.79 10*6/uL Low 4.20-6.00 [facility] Comment on above: Order Comment: Speci men Type: BLOOD SPECIMENOrdering Facility: [facility] Address: [address] [place] [address] Performed By: #### 5 7021-8 ####[facility] LABCLIA [id number] [place] [address] WBC (Bld) [#/Vol] 5.77 10*3/uL Normal 3.70-11.00 [facility] Comment on above: Order Comment: Speci men Type: BLOOD SPECIMENOrdering Facility: [facility] Address: [place] [address] Performed By: #### 5 7021-8 ####[facility] LABCLIA [id number] [place] [address] Basophils (Bld) [#/Vol] 0.04 10*3/uL <0.11 k/uL [facility] Basophils/100 WBC (Bld) 0.7 % [facility] Differential cell count method Nom (Bld) Auto [facility] Eosinophils (Bld) [#/Vol] 0.18 10*3/uL <0.46 k/uL [facility] Eosinophils/100 WBC (Bld) 3.1 % [facility] Erythrocyte distribution width (RBC) [Ratio] 17.3 % High 11.5 - 15.0 % [facility] Hematocrit (Bld) [Volume fraction] 36.9 % Low 39.0 - 51.0 % [facility] Hemoglobin (Bld) [Mass/Vol] 12.3 g/dL Low 13.0 - 17.0 g/dL [facility] Immature granulocytes (Bld) [#/Vol] 0.04 10*3/uL <0.10 k/uL [facility] Immature granulocytes/100 WBC (Bld) 0.7 % [facility] Lymphocytes (Bld) [#/Vol] 0.34 10*3/uL Low 1.00 - 4.00 k/uL [facility] Lymphocytes/100 WBC (Bld) 5.9 % [facility] MCH (RBC) [Entitic mass] 32.5 pg 26.0 - 34.0 pg [facility] MCHC (RBC) [Mass/Vol] 33.3 g/dL 30.5 - 36.0 g/dL [facility] MCV (RBC) [Entitic vol] 97.4 fL 80.0 - 100.0 fL [facility] Monocytes (Bld) [#/Vol] 0.55 10*3/uL <0.87 k/uL [facility] Monocytes/100 WBC (Bld) 9.5 % [facility] Neutrophils (Bld) [#/Vol] 4.62 10*3/uL 1.45 - 7.50 k/uL [facility] Neutrophils/100 WBC (Bld) 80.1 % [facility] Nucleated RBC (Bld) [#/Vol] <0.01 k/uL [facility] Nucleated RBC/100 WBC (Bld) [Ratio] 0.0 /100 WBC [facility] Platelet mean volume (Bld) [Entitic vol] 9.3 fL 9.0 - 12.7 fL [facility] Platelets (Bld) [#/Vol] 157 10*3/uL 150 - 400 k/uL [facility] RBC (Bld) [#/Vol] 3.79 10*6/uL Low 4.20 - 6.0 0 m/uL [facility] WBC (Bld) [#/Vol] 5.77 10*3/uL 3.70 - 11.00 k/uL [facility] CNOVon 11-08-2022 CNOV Normal [facility] CNPNon 11-07-2022 CNPN Normal [facility] Consultation Noteon 11-02-19 Consultation Note [id number] D:127 Normal [facility] CBC W Auto Differential pane l (Bld)on 10-11-2022 Basophils (Bld) [#/Vol] <0.11 k/uL [facility] Basophils/100 WBC (Bld) 0.1 % [facility] Differential cell count method Nom (Bld) Auto [facility] Eosinophils (Bld) [#/Vol] <0.46 k/uL [facility] Eosinophils/100 WBC (Bld) 0.0 % [facility] Erythrocyte distribution width (RBC) [Ratio] 15.5 % High 11.5 - 15.0 % [facility] Hematocrit (Bld) [Volume fraction] 42.6 % 39.0 - 51.0 % [facility] Hemoglobin (Bld) [Mass/Vol] 14.0 g/dL 13.0 - 17.0 g/dL [facility] Immature granulocytes (Bld) [#/Vol] 0.12 10*3/uL High <0.10 k/uL [facility] Immature granulocytes/100 WBC (Bld) 0.6 % [facility] Lymphocytes (Bld) [#/Vol] 0.82 10*3/uL Low 1.00 - 4.00 k/uL [facility] Lymphocytes/100 WBC (Bld) 4.0 % [facility] MCH (RBC) [Entitic mass] 31.0 pg 26.0 - 34.0 pg [facility] MCHC (RBC) [Mass/Vol] 32.9 g/dL 30.5 - 36.0 g/dL [facility] MCV (RBC) [Entitic vol] 94.5 fL 80.0 - 100.0 fL [facility] Monocytes (Bld) [#/Vol] 1.01 10*3/uL High <0.87 k/uL [facility] Monocytes/100 WBC (Bld) 4.9 % [facility] Neutrophils (Bld) [#/Vol] 18.55 10*3/uL High 1.45 - 7.50 k/uL [facility] Neutrophils/100 WBC (Bld) 90.4 % [facility] Nucleated RBC (Bld) [#/Vol] <0.01 k/uL [facility] Nucleated RBC/100 WBC (Bld) [Ratio] 0.0 /100 WBC [facility] Platelet mean volume (Bld) [Entitic vol] 10.9 fL 9.0 - 12.7 fL [facility] Platelets (Bld) [#/Vol] 207 10*3/uL 150 - 400 k/uL [facility] RBC (Bld) [#/Vol] 4.51 10*6/uL 4.20 - 6.0 0 m/uL [facility] WBC (Bld) [#/Vol] 20.52 10*3/uL High 3.70 - 11.00 k/uL [facility] Comprehensive metabolic 2000 panelon 10-11-2022 Albumin [Mass/Vol] 3.9 g/dL 3.9 - 4.9 g/dL [facility] ALP [Catalytic activity/Vol] 80 U/L 38 - 113 U/L [facility] ALT [Catalytic activity/Vol] 10 U/L 10 - 54 U/L [facility] Anion gap [Moles/Vol] 11 mmol/L 9 - 18 mmol/L [facility] AST [Catalytic activity/Vol] 11 U/L Low 14 - 40 U/L [facility] Bilirubin [Mass/Vol] 1.0 mg/dL 0.2 - 1 .3 mg/dL [facility] Calcium [Mass/Vol] 9.5 mg/dL 8.5 - 10. 2 mg/dL [facility] Chloride [Moles/Vol] 104 mmol/L 97 - 10 5 mmol/L [facility] CO2 [Moles/Vol] 26 mmol/L 22 - 30 mmol/L [facility] Creatinine [Mass/Vol] 1.50 mg/dL High 0.73 - 1.22 mg/dL [facility] Estimated Glomerular Filtration Rate 50 mL/min/1.73m Low >=60 mL/min/1.73 m [facility] Glucose [Mass/Vol] 136 mg/dL High 74 - 99 mg/dL [facility] Potassium [Moles/Vol] 4.3 mmol/L 3.7 - 5.1 mmol/L [facility] Protein [Mass/Vol] 6.1 g/dL Low 6.3 - 8.0 g/dL [facility] Sodium [Moles/Vol] 141 mmol/L 136 - 144 mmol/L [facility] Urea nitrogen [Mass/Vol] 30 mg/dL High 9 - 24 mg/dL [facility] ANES POSTPROC EVALon 022 ANES POSTPROC EVAL HNO ID: [id number] Author: Mk Salmeron DO Service: Anesthesiology Author Type: Anesthesiologist Type: Anesthesia Postprocedure Evaluation Filed: 10/10/2022 3:10 PM Note Text: POST ANESTHESIA EVALUATION NOTE : 1950 Procedure Summary Date: 10/10/22 Room / Location: [facility] / [facility] Anesthesia Start: 1313 Anesthesia Stop: 1415 Procedure: BRONCHOSCOPY,RIGID/FLEX IBLE W/ FLUORO,W/ENDOBRONCHIAL ULTRASOUND (EBUS) GUIDED TRANSTRACHEAL/ TRANSBRONCHIAL ASPIRATION/BIOPSY,1 OR 2 MEDIASTINAL AND/OR HILAR LYMPH NODE STATIONS/STRUCTURES (Bronchus) Diagnosis: Adenopathy (Adenopathy [R59.9]) Surgeons: Hang Maier MD Responsible Provider: Mk Salmeron DO Anesthesia Type: general ASA Status: 3 Anesthesia Type: general Airway Type: LMA Last Vitals Vitals Value Taken Time BP 100/77 10/10/22 1500 Temp 36.4 ?C (97.5 ?F) 10/10/22 1416 Pulse 71 10/10/22 1509 Resp 10 10/10/22 1509 SpO2 95 % 10/10/22 1509 Vitals shown include unvalidated device data. Post Anesthesia Patient Status Patient Evaluation: PACU. PACU/ICU Patient Condition: stable. Anticipated Disposition: phase 2 then home. Neurological Status: aware and responsive. Pulmonary Status: breathing comfortably on room air Airway Control: returned to baseline unsupported. Cardiovascular Status: stable. Pain Management: clinically adequate - multimodal analgesia pain management approach Postoperative Hydration: acceptable. Intraoperative Events: no significant anesthesia events Post Operative Nausea/Vomiting Status: no significant post operative nausea or vomiting Recommendation: continue current plan of care. Anesthesia Observations No Documentation SIGNATURE: Mk Salmeron DO PATIENT NAME: Mervat Damon DATE: October 10, 2022 TIME: 3:09 PM CSN: [id number] [facility] ANES PRE-OPon 10-10-2022 ANES PRE-OP HNO ID: [id number] Author: Zeyad House MD Service: Anesthesiology Author Type: Anesthesiologist Type: Anesthesia Preprocedure Evaluation Filed: 10/10/2022 12:32 PM Note Text: ANESTHESIOLOGY DAY OF SURGERY NOTE : 1950 Procedure Information Date/Time: 10/10/22 1300 Procedure: BRONCHOSCOPY,RIGID/FLEX IBLE W/ FLUORO,W/ENDOBRONCHIAL ULTRASOUND (EBUS) GUIDED TRANSTRACHEAL/ TRANSBRONCHIAL ASPIRATION/BIOPSY,1 OR 2 MEDIASTINAL AND/OR HILAR LYMPH NODE STATIONS/STRUCTURES (Bronchus) [facility] Surgeons: Hang Maier MD Estimated body mass index is 32.86 kg/m? as calculated from the following: Height as of 10/02/22: 186.2 cm (6' 1.31 ). Weight as of 10/02/22: 113.9 kg (251 lb 3.2 oz). Most recent hematocrit and potassium results: Hematocrit 42.9 10/02/2022 Potassium 4.0 10/02/2022 Relevant Problems No relevant active problems I - PHYSICAL EVALUATION AIRWAY Patient intubated: No. Tracheostomy tube not present Mallampati: II. TM distance: >3 FB. Neck ROM: full ROM without neurological symptoms. Mouth opening: adequate. Short neck: no. Thick neck: no Mac present: no DENTAL Dentures, upper: complete. Dentures, lower: complete. Additional exam findings: yes. CARDIOVASCULAR Normal cardiovascular observations. Rhythm: regular Rate: normal PULMONARY Normal pulmonary observations. Breath sounds clear to auscultation. II - ANESTHESIA PLAN ASA Score: 3 Anesthetic Plan: general Airway type: LMA NPO Status: adequate Beta Taina Monitoring Plan Monitoring plan: Standard ASA. Post Procedure Analgesic Plan Postoperative analgesic plan: multimodal analgesia. Informed Consent Anesthetic risks, benefits, alternatives, personnel and consent discussed: yes. Patient / Responsible [employer] Party agrees to proceed: yes Patient / Surrogate agrees to blood products: Yes Significant changes in the patient condition since the History and Physical, not otherwise documented in primary service progress note: no. Potential Anesthesia issues that may suggest increased risk of complications or contraindication to planned procedure: none. Vitals Value Taken Time BP Pulse 71 10/10/22 1218 Resp 18 10/10/22 1218 Temp 36.1 ?C (97 ?F) 10/10/22 1218 SpO2 98 % 10/10/22 1218 No current facility-administered medications on file as of 10/10/2022. Outpatient Medications as of 10/10/2022 Medication Sig - capecitabine (XELODA) 500 mg tablet Take 4 tablets (2,000 mg) by mouth twice daily with food on days of radiation only (Mon-Fri). - ondansetron (ZOFRAN) 8 mg tablet Take 1 tablet by mouth every 8 hours as needed for nausea/vomiting. - prochlorperazine (COMPAZINE) 10 mg tablet Take 1 tablet by mouth every 6 hours as needed. - acetaminophen 325 mg cap Take by mouth. - predniSONE (DELTASONE) 5 mg tablet Take 5 mg by mouth once daily. - valsartan (DIOVAN) 80 mg tablet Take 80 mg by mouth once daily. - carvedilol (COREG) 6.25 mg tablet Take 6.25 mg by mouth once daily. - folic acid 1 mg tablet Take 1 mg by mouth once daily. - Glucosamine Sulfate 500 mg tab Take 1 tablet by mouth once daily. - tamsulosin ER (FLOMAX) 0.4 mg cap Take 0.4 mg by mouth twice daily. - Ascorbic Acid 100 mg tablet Take 100 mg by mouth twice daily. - ibuprofen (MOTRIN) 400 mg tablet Take 400 mg by mouth every 6 hours as needed. I have interviewed and examined the patient. I have reviewed the medical record and/or the pre-anesthesia evaluation, pertinent labs, and test results. This contains updated information obtained within 48 hours of Surgery/Procedure. SIGNATURE: Zeyad House MD PATIENT NAME: Mervat Damon DATE: October 10, 2022 TIME: 12:31 PM CSN: [id number] Normal [facility] CYTOLOGY NON-GYNon 2 ADEQUACY INTERPRETATION Normal [facility] Comment on above: Order Comment: Speci men Type: SPECIMEN OBTAINED BY ASPIRATION [facility] Address: [address] [place] [address] Result Comment: A: # 1,2 Lymphoid sample B: #1 Limited lymphoid sample #2 Non-diagnostic #3,4 Lymphoid sample C: #1 Non-diagnostic #2 Limited lymphoid sample with possible rare granuloma Dr. Sean Terry/Mao Christian reported onsite to Dr. Maier Each letter in the above intra-procedural assessment refers to a unique site. The specific site is indicated in the final diagnosis portion of the report. Each number in this assessment references a discrete evaluation episode. Intra-procedural assessment performed at [facility], [address] [place] [address] Performed By: #### C YTONON #### [facility] CLIA [id number] [address] [place] [address] STATES [facility] CASE REPORT [facility] Comment on above: Order Comment: Speci men Type: SPECIMEN OBTAINED BY ASPIRATION [facility] Address: [address] [place] [address] Result Comment: [facility] Cytology Report Case: [id number] Authorizing Provider: Hang Maier MD Collected: 10/10/2022 01:18 PM Ordering Location: [facility] Received: 10/10/2022 03:13 PM Endoscopy - ENDO Pathologist: Jose G Terry MD Specimens: A) - EBUS TRANSBRONCHIAL FINE NEEDLE ASPIRATE, LYMPH NODE, STATION 7 B) - EBUS TRANSBRONCHIAL FINE NEEDLE ASPIRATE, LYMPH NODE, 4R C) - EBUS TRANSBRONCHIAL FINE NEEDLE ASPIRATE, LYMPH NODE, 11RS Performed By: #### C YTONON #### [facility] CLIA [id number] [address] [place] [address] CLINICAL HISTORY Adenocarcinoma of th e lower rectum Normal [facility] Comment on above: Order Comment: Speci men Type: SPECIMEN OBTAINED BY ASPIRATION [facility] Address: [address] [place] [address] Performed By: #### C YTONON #### [facility] CLIA [id number] [address] [place] [address] DIAGNOSIS COMMENT C. The specimen consists of loose clusters of histiocytes, but no definitive granulomas identified. As a result, specials stains are not performed. Normal [facility] Comment on above: Order Comment: Speci men Type: SPECIMEN OBTAINED BY ASPIRATION [facility] Address: [address] [place] [address] Performed By: #### C YTONON #### [facility] CLIA [id number] [address] [place] [address] FINAL DIAGNOSIS [facility] Comment on above: Order Comment: Speci men Type: SPECIMEN OBTAINED BY ASPIRATION [facility] Address: [address] [place] [address] Result Comment: A - EBUS TRANSBRONCHIAL FINE NEEDLE ASPIRATE, LYMPH NODE - STATION 7 Negative for malignant cells. Benign lymphoid sample. B - EBUS TRANSBRONCHIAL FINE NEEDLE ASPIRATE, LYMPH NODE - 4R Negative for malignant cells. Benign lymphoid sample. C - EBUS TRANSBRONCHIAL FINE NEEDLE ASPIRATE, LYMPH NODE - 11RS Negative for malignant cells. Limited benign lymphoid sample, histiocytes and necrotic debris. The following cell blocks were associated with this case: A1 Cell Block, Alcohol Fixed B1 Cell Block, Alcohol Fixed C1 Cell Block, Alcohol Fixed Performed By: #### C YTONON #### [facility] CLIA [id number] [address] [place] [address] FINAL PERFORMING LAB Normal [facility] Comment on above: Order Comment: Speci men Type: SPECIMEN OBTAINED BY ASPIRATION [facility] Address: [address] [place] [address] Result Comment: Tech nical component, forestry hunter screening performed at [facility], [address] [place] [address] CLIA# [id number] Diagnostic interpretation performed at [facility], [address] [place] [address] CLIA# [id number] Sand Temperer: Brett Escalera M.D. Performed By: #### C YTONON #### [facility] CLIA [id number] [address] [place] [address] OF [place] GROSS DESCRIPTION Normal [facility] Comment on above: Order Comment: Speci men Type: SPECIMEN OBTAINED BY ASPIRATION [facility] Address: [address] [place] [address] Result Comment: A. E BUS TRANSBRONCHIAL FINE NEEDLE ASPIRATE, LYMPH NODE 30 cc clear colorless CytoLyt with particles. ThinPrep and Cell Block prepared and 4 smears (2 air dried and 2 fixed). Performed By: #### C YTONON #### [facility] CLIA [id number] [address] [place] [address] ORDER COMMENT Normal [facility] Comment on above: Order Comment: Speci men Type: SPECIMEN OBTAINED BY ASPIRATION [facility] Address: [address] [place] [address] Result Comment: Pre- op diagnosis: Adenopathy [R59.9] Performed By: #### C YTONON #### [facility] CLIA [id number] [address] [place] [address] STATES OF [place] NURSING PROGon 10-10-2022 NURSING PROG HNO ID: [id number] Author: Oliva Alcantara RN Service: Nursing Author Type: Registered Nurse Type: Nursing Progress Note Filed: 10/10/2022 12:15 PM Note Text: PATIENT EDUCATION TOPIC: PROCEDURE / SURGERY: Post Procedure Teaching: EBUS PATIENT NAME: Mervat Damon PATIENT LOCATION: [facility] READINESS TO LEARN COGNITIVE ABILITY: Alert and oriented MOTIVATION TO LEARN: Eager FAMILY SUPPORT: None - Unavailable/disinterest ed INSTRUCTION PROVIDED TO: Patient PATIENT LEARNS BEST BY: Verbal Instruction FACTORS AFFECTING LEARNING: None PHYSICAL LIMITATIONS AFFECTING LEARNING: None LEARNING RESPONSE DIAGNOSIS: ADULT: EBUS PATIENT/FAMILY RESPONSE: Verbalizes understanding of: POST-PROCEDURE INSTRUCTIONS-Correct actions to take to reduce post procedure complications METHOD OF INSTRUCTION: Verbal instruction FOLLOW-UP PLAN: Complete - No need for follow-up INSTRUCTIONAL AIDS USED: NA SUPPLEMENTAL MATERIAL PROVIDED TO PATIENT: None REFERRAL (RECOMMENDATION): None Electronically Signed By: Oliva Alcantara [facility] Yaron 10-09-2022 [facility] Telephone ([facility]) MERVAT DAMON ([id number]) 1950 M Date Time Provider Department 10/09/22 HANG MAIER During your visit today, we recorded the following information about you: Vito Del Castillo 10/09/2022 11:58 AM Signed Spoke with the patient confirmed noon arrival time for 1 pm appointment at [facility] Vito Del Castillo Allergies As of Date: 10/09/2022 (No Known Allergies) Date Reviewed: 10/08/2022 Reviewed by: Hang Maier MD - Fully Assessed Reason for Visit: Appointment [186] Prescriptions as of 10/09/2022 - HYDROcodone-acetaminoph en (NORCO) 5-325 mg per tablet Take 1 tablet by mouth every 8 hours as needed for pain. - capecitabine (XELODA) 500 mg tablet Take 4 tablets (2,000 mg) by mouth twice daily with food on days of radiation only (Mon-Fri). - ondansetron (ZOFRAN) 8 mg tablet Take 1 tablet by mouth every 8 hours as needed for nausea/vomiting. - prochlorperazine (COMPAZINE) 10 mg tablet Take 1 tablet by mouth every 6 hours as needed. - acetaminophen 325 mg cap Take by mouth. - ibuprofen (MOTRIN) 400 mg tablet Take 400 mg by mouth every 6 hours as needed. - predniSONE (DELTASONE) 5 mg tablet Take 5 mg by mouth once daily. - valsartan (DIOVAN) 80 mg tablet Take 80 mg by mouth once daily. - carvedilol (COREG) 6.25 mg tablet Take 6.25 mg by mouth once daily. - folic acid 1 mg tablet Take 1 mg by mouth once daily. - Glucosamine Sulfate 500 mg tab Take 1 tablet by mouth once daily. - tamsulosin ER (FLOMAX) 0.4 mg cap Take 0.4 mg by mouth twice daily. - Ascorbic Acid 100 mg tablet Take 100 mg by mouth twice daily. Problem List As Of Date 10/09/2022 Noted Resolved Pulmonary embolus with infarction (HCC) [I26.99]08/04/2018 Encounter Status:Closed by VITO DEL CASTILLO on 10/09/22 [facility] HISTORY PHYSICALon HISTORY PHYSICAL HNO ID: [id number] Author: Hang Maier MD Service: ? Author Type: Physician Type: HANDP Filed: 10/08/2022 3:58 PM Note Text: VIRTUAL VISIT PROGRESS NOTE This is a virtual visit using KIHEIT[employer] video visit. It required patient-provider interaction for the medical decision making as documented below. Mervat Damon is a 72 year old male seen for evaluation of mediastinal adenopathy, referred by Dr. Nick Anderson. My findings and recommendations will be communicated to the referring doctor via shared electronic medical record. The patient was diagnosed with rectal cancer about one month ago, as a result of rectal bleeding. Mass was non-obstructing T3bN0. However, baseline CT showed bilateral small lung nodules with liver nodules; PET showed uptake in a mediastinal node but no uptake in liver. Patient without pulmonary complaints, never smoker. Currently undergoing neoadjuvant chemo/XRT Xeloda and pelvic radiation, tolerating well. HISTORY REVIEWED (electronic chart updated): PAST MEDICAL HISTORY Diagnosis Date Acute low back pain with possible spinal stenosis of less than six weeks' duration Adenocarcinoma of rectum (HCC) Arthritis Bilateral renal cysts peripelvic BPH with urinary obstruction Cholelithiasis History of kidney stones Non-ischemic cardiomyopathy (HCC) Pulmonary emboli (HCC) left lower lobe RA (rheumatoid arthritis) (HCC) PAST SURGICAL HISTORY Procedure Laterality Date COLONOSCOPY HAMMERTOE REVISION, ONE TOE HEMORRHOID SURGERY HX HERNIA REPAIR HX LITHOTRIPSY PROC UNILATERAL REMV CATARACT EXTRACAP,INSERT LENS FAMILY HISTORY Problem Relation Age of Onset Pancreatic Cancer Mother Cancer Father bladder Liver Cancer Sister Cancer Brother Thyroid and Prostate Social History Tobacco Use Smoking status: Never Smokeless tobacco: Never Vaping Use Vaping Use: Never used Substance Use Topics Alcohol use: Yes Comment: rarely Drug use: No Current Outpatient Medications Medication Sig HYDROcodone-acetaminoph en (NORCO) 5-325 mg per tablet Take 1 tablet by mouth every 8 hours as needed for pain. capecitabine (XELODA) 500 mg tablet Take 4 tablets (2,000 mg) by mouth twice daily with food on days of radiation only (Mon-Fri). ondansetron (ZOFRAN) 8 mg tablet Take 1 tablet by mouth every 8 hours as needed for nausea/vomiting. prochlorperazine (COMPAZINE) 10 mg tablet Take 1 tablet by mouth every 6 hours as needed. acetaminophen 325 mg cap Take by mouth. ibuprofen (MOTRIN) 400 mg tablet Take 400 mg by mouth every 6 hours as needed. predniSONE (DELTASONE) 5 mg tablet Take 5 mg by mouth once daily. valsartan (DIOVAN) 80 mg tablet Take 80 mg by mouth once daily. carvedilol (COREG) 6.25 mg tablet Take 6.25 mg by mouth once daily. folic acid 1 mg tablet Take 1 mg by mouth once daily. Glucosamine Sulfate 500 mg tab Take 1 tablet by mouth once daily. tamsulosin ER (FLOMAX) 0.4 mg cap Take 0.4 mg by mouth twice daily. Ascorbic Acid 100 mg tablet Take 100 mg by mouth twice daily. No current facility-administered medications for this visit. ALLERGIES No Known Allergies REVIEW OF SYSTEMS: GENERAL: feeling well without fatigue, no recent change in weight HEENT: denies ARAUJO, change in hearing or vision, no other ENT complaints NECK: denies swelling or pain in neck RESPIRATORY: no cough, no wheezing or shortness of breath CARDIOVASCULAR: no chest pain, no palpitations GI: See HPI : urination is normal MUSCULOSKELETAL: denies any painful or swollen joints, no muscle aches SKIN: no rash PSYCH: denies depressed or anxious mood, sleep is normal HEMATOLOGY/LYMPHOLOGY: negative for prolonged bleeding, no swollen lymph nodes ENDOCRINE: denies cold/heat intolerance, denies polyuria or polydipsia, no goiter NEURO: no numbness or paresthesias and no weakness of the extremities All other ROS: negative As noted in HPI PHYSICAL EXAMINATION: VIDEO EXAM: (if completed, performed via video enabled technology) GENERAL: alert and appropriate, in no distress, well-hydrated, well nourished, and happy, smiling, interactive SKIN: no rash noted HEAD: normocephalic, no abnormality or lesion noted EYES: no injection and visual acuity is grossly normal EARS: hearing grossly normal NOSE: external nose normal without rhinorrhea OROPHARYNX: moist mucus membranes NECK: full ROM, no cervical LNs noted RESPIRATORY: breathing non-labored CHEST: equal chest rise with normal respiratory effort ABDOMEN: soft and non-tender BACK: back normal in appearance, spine with FROM NEUROLOGIC: no obvious deficit ASSESSMENT/PLAN Adenopathy. I personally reviewed the CT and PET-CT images. There is PET update in the right hilar region, which is concerning for metastasis. This would be unusual to be the sole site of metastasis, however rectal cancer can bypass usual lymphatic drainage patterns. Will set up for an EBUS-TBNA, to acq (more content not included)... Normal [facility] MR abdomen wo/w conon 2021 MR abdomen wo/w con [facility] [place] [address] MRI Report Signed Patient: Mervat Damon MR#: [id number] : 1950 Acct:[id number] Age/Sex: 71 / M ADM Date: 10/01/22 Loc: Room: Type: [facility] Attending Dr: Nick Anderson MD Copies to: Nick Anderson MD Ordering Provider: Nick Anderson MD Date of Service: 10/01/22 MR/MR abdomen wo/w con: LIVER MASS/ rectal cancer MRI OF THE ABDOMEN WITH AND WITHOUT CONTRAST: CLINICAL HISTORY: Lesion seen on prior PET scan within the liver. COMPARISON: Outside PET/CT 09/25/2022 TECHNIQUE: Multisequence, multiplanar imaging of the abdomen was obtained before and after the use of IV contrast. FINDINGS: The liver appears normal in contour without evidence of steatosis or intrahepatic ductal dilatation. Hepatic and portal veins appear patent. No enhancing liver lesion is seen. No evidence of restriction diffusion is seen within the liver. Gallbladder demonstrates cholelithiasis. No CBD dilatation is noted. Spleen appears unremarkable. Pancreas appears unremarkable. Adrenal glands appear unremarkable. Bilateral parapelvic cysts are seen involving the kidneys. No enhancing renal mass. Abdominal aorta appears normal in caliber. No bulky lymphadenopathy or ascites. No pleural effusion. Partially visualized umbilical hernia. MR/MR abdomen wo/w con IMPRESSION: NO MRI EVIDENCE OF LIVER LESION. CHOLELITHIASIS. Impression dictated by: Hang Houser Jr., D.O.10/02/2022 10:33 AM Dictation Location: [place] [address] Transcribed By: [facility] 10/02/22 1033 Dictated By: Hang Houser Jr, DO 10/02/22 0923 Signed By: 10/02/22 1033 [facility] Creatinine (Bld) [Mass/Vol]O rdered By: Nick Anderson on 10-01-2022 Creatinine [Mass/Vol] 1.2 mg/dL 0.6-1.3 [facility] Comment on above: ER/ESD physician is notified/shown all ISTAT results.Critical values may be confirmed by laboratory testing ifdeemed necessary by ER attending doctor. ISTAT XRay CREon 10-01-2022 Creatinine [Mass/Vol] 1.2 mg/dL Normal 0.6-1.3 [facility] Comment on above: Result Comment: ER/E SD physician is notified/shown all ISTAT results. Critical values may be confirmed by laboratory testing if deemed necessary by ER attending doctor. Performed By: #### I SCRE #### [facility] [address] [place] [address] Point of Care testing , ISTAT GFR ( > 60 Normal [facility] Comment on above: Result Comment: GFR estimated reference range: According to KDOQI guidelines, <60 ml/min/1.73m2 is sufficient to diagnose a patient with chronic kidney disease. PERFORMED BY: [place] [address] PATHOLOGIST VALIDATION ARCHITECT YONG HANKINS M.D. Performed By: #### I SCRE #### [address] Point of Care testing , ISTAT GFR (Non- Am 60 Normal [facility] Comment on above: Performed By: #### I SCRE #### [facility] [address] Point of Care testing , No Panel InformationOrdered By: Nick Anderson on 10-01-2022 POC Estimated GFR > 60 [facility] Comment on above: GFR estimated refere nce range: According to KDOQI guidelines, <60 ml/min/1.73m2 is sufficient to diagnose a patient with chronic kidney disease. POC Estimated GFR Non- Amer 60 [facility] PATH CONSULTon 09-20-2022 LAB AP CASE REPORT Normal [facility] Comment on above: Result Comment: PATH OLOGY CONSULT Case: [id number] Authorizing Provider: Thalia Troy MD Collected: 09/20/2022 1150 Ordering Location: [facility] Lab Received: 09/20/2022 1153 Pathologist: Vanessa Maldonado MD Specimen: Anus, Biopsy Performed By: #### P ATH CONSULT ####[facility] (BEAKER)[address] [facility] [place] [address] LAB AP CLINICAL INFORMATION Anal mass Normal [facility] Comment on above: Performed By: #### P ATH CONSULT ####[facility] ([facility]AKER)[address] [place] [address] LAB AP DIAGNOSIS COMMENT Normal [facility] Comment on above: Result Comment: Prov ided immunostains reveal carcinoma cells express CK20 and CDX-2, while only focally expressing CK7. The provided controls are adequate. Microsatellite instability tests using immunostains (with appropriate satisfactory controls) for mismatch repair proteins reveal the following results: MLH1: intact nuclear expression MSH2: intact nuclear expression MSH6: intact nuclear expression PMS2: intact nuclear expression Interpretation: The results indicate normal mismatch repair protein expression. The patient is unlikely to have Antonio Syndrome. If there is a high index of suspicion, consider microsatellite instability testing because immunohistochemistry will miss about 5-15% of Antonio Syndrome cases. Comment: Immunohistochemistry (IHC) for mismatch repair proteins has been demonstrated to be a sensitive screening test to detect the microsatellite stability status of tumors. This screening primarily assesses MLH1, MSH2, MSH6 and PMS2 antibodies to predict loss of mismatch repair protein expression. IHC testing is used in the first step in identifying which protein is impacted which serves as a guide to select further confirmatory tests when needed. Performed By: #### P ATH CONSULT ####[facility] ([facility])[address] [place] [address] LAB AP GROSS DESCRIPTION A. Anus. [facility] Comment on above: Result Comment: Rece ived from [address] [place] [address] are eight (8) previously stained glass slides accessioned [id number]. The slides are accompanied by a copy of the contributing pathologists??? report. Performed By: #### P ATH CONSULT ####[facility] ([facility])[address] [place] [address] LAB AP REPORT FINAL DIAGNOSIS NARRATIVE [facility] Comment on above: Result Comment: Mass at anal verge, biopsy ([id number], are 8 slides received from [facility]): Adenocarcinoma of colonic origin. Performed By: #### P ATH CONSULT ####[facility] ([facility])[address] [place] [address] CBC W Auto Differential pane l (Bld)on 09-17-2022 Basophils (Bld) [#/Vol] 0.06 10*3/uL <0.11 k/uL [facility] Basophils/100 WBC (Bld) 0.6 % [facility] Differential cell count method Nom (Bld) Auto [facility] Eosinophils (Bld) [#/Vol] 0.26 10*3/uL <0.46 k/uL [facility] Eosinophils/100 WBC (Bld) 2.7 % [facility] Erythrocyte distribution width (RBC) [Ratio] 15.2 % High 11.5 - 15.0 % [facility] Hematocrit (Bld) [Volume fraction] 43.9 % 39.0 - 51.0 % [facility] Hemoglobin (Bld) [Mass/Vol] 14.4 g/dL 13.0 - 17.0 g/dL [facility] Immature granulocytes (Bld) [#/Vol] 0.03 10*3/uL <0.10 k/uL [facility] Immature granulocytes/100 WBC (Bld) 0.3 % [facility] Lymphocytes (Bld) [#/Vol] 2.17 10*3/uL 1.00 - 4.00 k/uL [facility] Lymphocytes/100 WBC (Bld) 22.8 % [facility] MCH (RBC) [Entitic mass] 31.0 pg 26.0 - 34.0 pg [facility] MCHC (RBC) [Mass/Vol] 32.8 g/dL 30.5 - 36.0 g/dL [facility] MCV (RBC) [Entitic vol] 94.4 fL 80.0 - 100.0 fL [facility] Monocytes (Bld) [#/Vol] 0.67 10*3/uL <0.87 k/uL [facility] Monocytes/100 WBC (Bld) 7.0 % [facility] Neutrophils (Bld) [#/Vol] 6.33 10*3/uL 1.45 - 7.50 k/uL [facility] Neutrophils/100 WBC (Bld) 66.6 % [facility] Nucleated RBC (Bld) [#/Vol] <0.01 k/uL [facility] Nucleated RBC/100 WBC (Bld) [Ratio] 0.0 /100 WBC [facility] Platelet mean volume (Bld) [Entitic vol] 10.4 fL 9.0 - 12.7 fL [facility] Platelets (Bld) [#/Vol] 232 10*3/uL 150 - 400 k/uL [facility] RBC (Bld) [#/Vol] 4.65 10*6/uL 4.20 - 6.0 0 m/uL [facility] WBC (Bld) [#/Vol] 9.52 10*3/uL 3.70 - 11.00 k/uL [facility] Comprehensive metabolic 2000 panelon 09-17-2022 Albumin [Mass/Vol] 4.2 g/dL 3.9 - 4.9 g/dL [facility] ALP [Catalytic activity/Vol] 89 U/L 38 - 113 U/L [facility] ALT [Catalytic activity/Vol] 11 U/L 10 - 54 U/L [facility] Anion gap [Moles/Vol] 8 mmol/L Low 9 - 18 mmol/L [facility] AST [Catalytic activity/Vol] 16 U/L 14 - 40 U/L [facility] Bilirubin [Mass/Vol] 0.5 mg/dL 0.2 - 1 .3 mg/dL [facility] Calcium [Mass/Vol] 9.3 mg/dL 8.5 - 10. 2 mg/dL [facility] Chloride [Moles/Vol] 103 mmol/L 97 - 10 5 mmol/L [facility] CO2 [Moles/Vol] 29 mmol/L 22 - 30 mmol/L [facility] Creatinine [Mass/Vol] 1.22 mg/dL 0.73 - 1.22 mg/dL [facility] Estimated Glomerular Filtration Rate 64 mL/min/1.73m >=60 mL/min/1.73 m [facility] Glucose [Mass/Vol] 84 mg/dL 74 - 99 mg/dL [facility] Potassium [Moles/Vol] 4.1 mmol/L 3.7 - 5.1 mmol/L [facility] Protein [Mass/Vol] 6.5 g/dL 6.3 - 8.0 g/dL [facility] Sodium [Moles/Vol] 140 mmol/L 136 - 144 mmol/L [facility] Urea nitrogen [Mass/Vol] 23 mg/dL 9 - 24 mg/dL [facility] CT ABDOMEN PELVIS W IV CONTR Harish 09-11-2022 CT ABDOMEN PELVIS W IV CONTRAST Addendum: Automatic exposure control was utilized. Electronically signed: Jerrica Barragan. CT ABDOMEN PELVIS W IV CONTRAST 09/11/2022 11:30 AM Indication: History of rectal carcinoma evaluate for metastasis. TECHNIQUE: Enhanced CT of the abdomen and pelvis is performed utilizing 100 mL IV Omnipaque 350 contrast medium. No prior comparison. FINDINGS: There is fatty infiltration of the liver present. Questionable old focal low-attenuation lesion within the right hepatic lobe axial image 27 measuring under a centimeter in size. The spleen is not enlarged. Adrenal glands, apparent bilateral parapelvic cysts noted within the kidneys. There is a nodular density within the left adrenal gland which measures 1 cm. The right adrenal gland is not enlarged. The pancreas is not enlarged. The gallbladder is contains some tiny calculi but is not dilated. No free intra-abdominal air or fluid seen. Small fat-containing umbilical hernia noted. Apparent nonobstructing mid pole left renal calculus measures 4 mm. Multiple pelvic phleboliths are present. The abdominal aorta shows normal caliber. No significant retroperitoneal lymphadenopathy appreciated. There are a few diverticula of the left and sigmoid colon. Bone windows show lytic focus within L3 appears benign probably a Schmorl's node. There are marked bulky facet degenerative changes. Paraspinous musculature is symmetric. IMPRESSION: 1. Possible a low-attenuation lesion right hepatic lobe under a centimeter in size. MRI could better characterize and should be performed with IV contrast. 2. Nodular density within left adrenal gland which could represent metastasis or adenoma. We have no old exams for comparison. Attention to this region on MRI would also be helpful. 3. Cholelithiasis with no gallbladder dilatation. Electronically signed: Jerrica Barragan. Normal [facility] CT CHEST W IV CONTRASTon CT CHEST W IV CONTRAST CT CHEST W IV CONTRAST 09/11/2022 11:29 AM Indication: History of rectal adenocarcinoma, staging restaging. TECHNIQUE: Enhanced CT of the chest is performed utilizing 100 mL IV Omnipaque 350 contrast medium. No prior comparison. FINDINGS: The thoracic aorta shows normal caliber. A pleural or pericardial effusion is not seen. No significant mediastinal or hilar lymphadenopathy. Granuloma noted in the subcarinal and region, calcified. Visualized thyroid is not enlarged. Lung windows show irregular right upper lobe nodule which measures up to 9.8 mm x 6.1 mm x 6.3 mm. Left upper lobe nodule noted on axial image 192 measuring 3 mm. Right upper lobe nodule axial image 173 measuring 3 mm. Probable right lower lobe nodule axial image 300 measuring 5 mm right lower lobe nodule axial image 222 measuring 3 mm. Bone windows show no definite worrisome bony lesion. Mild bibasilar airspace process noted probably some dependent atelectasis. IMPRESSION: 1. Multiple noncalcified pulmonary nodules worrisome for metastatic disease, largest measures approximately 1 cm in right upper lobe. 2. Evidence for prior granulomatous disease. Electronically signed: Jerrica Barragan. Normal [facility] MR PELVIS WO CONTRASTon 08-22 MR PELVIS WO CONTRAST CLINICAL INFORMATI ON: Rectal adenocarcinoma. COMPARISON: None TECHNIQUE: Multisequence multiplanar MRI of the pelvis without contrast. PROTOCOL: Rectal cancer staging FINDINGS: PRIMARY TUMOR: LOCATION, MORPHOLOGY, AND CHARACTERISTICS Distance to the anal verge: 3.5 cm Distance to the top of the sphincter complex/anorectal junction: Abuts Relationship to the anterior peritoneal reflection: Below Craniocaudal length of tumor: 2.3 cm Morphology: Annular Mucinous: No MR-T category: T3b (tumor penetrates 1-5 mm beyond muscularis propria) FOR LOW RECTAL TUMORS: Invasion of the anal sphincter complex: Invades internal sphincter only If invasion is present: Upper anal canal FOR T3 TUMORS ONLY - Circumferential Resection Margin (CRM): Shortest distance of tumor to MRF (or anticipated CRM): Less than 2 mm , right lateral Not applicable due to tumor at the peritonealized portion of the rectum: No Extramural venous invasion (EMVI): None LYMPH NODES Mesorectal/superior rectal lymph nodes and/or tumor deposits: N category: N0 (no visible lymph nodes/deposits). Few nonenlarged 2 to 3 mm mesorectal lymph nodes. Extra-mesorectal lymph nodes: Number of suspicious lymph nodes: None OTHER: Normal bladder contour. No distal hydroureter. Normal prostate morphology. Small fat-containing wall hernias. IMPRESSION: 1.MR stage: T 3, N (-) , Mx. Somewhat limited due to lack of contrast. 2.Low rectal neoplasm with suspected early invasion of the internal anal sphincter at the upper canal. Complete details are provided in the findings section. Electronically signed: MERVAT JACINTO. Normal [facility] Comment on above: Order Comment: RECTA L MRI NEEDED CEAon 09-05-2022 CARCINOEMBRYONIC AG (NG/ML) IN SER/PLAS 14.4 ng/mL High 0-3 [facility] Comment on above: Performed By: #### L [id number] ####[facility] ([facility])[address] [place] [address] CREATININE, SERUMon 09-05-20 Creatinine [Mass/Vol] 1.15 mg/dL Normal 0.70-1.30 [facility] Comment on above: Performed By: #### L [id number] #### [facility] ([facility]) [address] [place] [address] GLOMERULAR FILTRATION RATE ML/MIN/1.73 SQ M.PREDICTED 64.6 mL/min/1.73m*2 Normal >60.0 [facility] Comment on above: Result Comment: The [facility]???s estimated glomerular filtration rate (eGFR) will no longer include consideration of race in its calculation. The National Kidney Foundation???s eGFR Task Force developed new recommendations for the estimation of the glomerular filtration rate in the [place] They recommend immediate implementation of the new equation refit without the race variable in all laboratories because the calculation does not include race. In addition to not including race in the calculation and reporting, it included diversity in its development, and has acceptable performance characteristics and potential consequences that do not disproportionately affect any one group of individuals. Performed By: #### L [id number] #### [facility] ([place]) [address] [place] [address] Office Visiton 09-05-2022 Follow-up visit [id number] Mervat Damon 1950 M Date Provider Department Center 09/05/2022 THALIA WONG [facility] [address] Family History Problem Relation Age of Onset Pancreatic cancer Mother Breast cancer Mother Other Father Liver cancer Sister Thyroid cancer Brother Family Status - Relation Status Age at Mother Father Sister Brother Alive Level of Service:87317 [place] OFFICE/OUTPATIENT ESTABLISHED MOD MDM 30-39 MIN Reason for Visit and Comments: Follow-up [611532] - Adenocarcinoma of colon (Reveiw biopsy results) [facility] 36on 08-29-[address] TROY SCHEDULE IN OFFICE ON 09/05/22. CALLED PT AND SCHEDULED WITH DR. TROY PER PROVIDER REQUEST. Normal [facility] 36 Pt update he states metamusil is helping with constipation and pain is still between 2-5. Pt is scheduled for next Saturday. [facility] Orders Onlyon 08-29-2022 Orders Only [id number] Mervat Damon 1950 M Date Provider Department Center 08/29/2022 BERNARDO WHITING [facility] [address] No family history on file [facility] Consulton 08-22-2022 Consult [id number] Juárez 1950 [facility] Provider Department Center 08/22/2022 387-THALIA TROY [facility] [address] No family history on file Level of Service:83596 [place] OFFICE/OUTPATIENT NEW MODERATE MDM 45-59 MINUTES Reason for Visit and Comments: Consult [484] - rectal mass Normal [facility] Laboratory - Chemistry and C hemistry - challengeOrdered By: SYSTEM SYSTEM on 08-06-2022 Albumin [Mass/Vol] 3.7 g/dL Normal 3.3 - 5.0 gm/dL [facility] Albumin/Globulin [Mass ratio] 1.2 {ratio} Normal 1.1 - 2.2 [facility] ALP [Catalytic activity/Vol] 77 [iU]/d Normal 21 - 98 Int._Unit/L [facility] ALT No additional P-5'-P [Catalytic activity/Vol] 13 [iU]/d Normal 6 - 46 Int._Unit/L [facility] Anion gap [Moles/Vol] 9 mmol/L Normal 6 - 16 mEq/L [facility] AST [Catalytic activity/Vol] 17 [iU]/d Normal 5 - 43 Int._Unit/L [facility] Bilirubin [Mass/Vol] 0.4 mg/dL Normal 0.0 - 1 .1 mg/dL [facility] Calcium [Mass/Vol] 9.1 mg/dL Normal 8.9 - 11. 1 mg/dL [facility] Chloride [Moles/Vol] 105 mmol/L Normal 101 - 1 11 mmol/L [facility] CO2 [Moles/Vol] 28 mmol/L Normal 21 - 31 mmol/L [facility] Creatinine [Mass/Vol] 1.3 mg/dL Normal 0.5 - 1.3 mg/dL [facility] GFR/1.73 sq M.predicted among blacks MDRD (S/P/Bld) [Vol rate/Area] mL/min/1.73 m2 Normal >=59mL/min/ 1.73 m2 [facility] S GFR/1.73 sq M.predicted among non-blacks MDRD (S/P/Bld) [Vol rate/Area] 55 mL/min/1.73 m2 Low >=59mL/min/ 1.73 m2 FT Chem S Globulin (S) [Mass/Vol] 3.2 g/dL Normal 1.4 - 4.0 gm/dL [facility] Glucose [Mass/Vol] 72 mg/dL Normal 55 - 199 mg/dL [facility] Potassium [Moles/Vol] 4.1 mmol/L Normal 3.5 - 5.3 mmol/L [facility] Protein [Mass/Vol] 6.9 g/dL Normal 6.0 - 7.8 gm/dL [facility] Sodium [Moles/Vol] 138 mmol/L Normal 135 - 145 mmol/L [facility] Urea nitrogen [Mass/Vol] 21 mg/dL Normal 5 - 21 mg/dL [facility] Urea nitrogen/Creatinine [Mass ratio] 16 mg/mg Normal 10 - 20 [facility] Laboratory - Hematology and Cell countsOrdered By: Bre Ventura on 08-06-2022 Erythrocyte distribution width (RBC) [Ratio] 15.0 % High 10.9 - 14.2 % [facility] HemeAutoSS Hematocrit (Bld) [Volume fraction] 42.0 % Normal 37.7 - 49.0 % [facility] Hemoglobin (Bld) [Mass/Vol] 13.9 g/dL Normal 13.5 - 17.5 gm/dL [facility] MCH (RBC) [Entitic mass] 31.4 pg Normal 27.0 - 34.0 pg [facility] MCHC (RBC) [Mass/Vol] 33.2 g/dL Normal 31.4 - 36.0 gm/dL [facility] MCV (RBC) [Entitic vol] 94.7 fL Normal 80.0 - 100.0 fL [facility] Platelet mean volume (Bld) [Entitic vol] 9.9 fL Normal 6.4 - 10.8 fL [facility] Platelets (Bld) [#/Vol] 169.0 E9/L Normal 150.0 - 500.0 E9/L [facility] RBC (Bld) [#/Vol] 4.4 E12/L Normal 4.3 - 5.9 E12/L [facility] WBC corrected for nucl RBC Auto (Bld) [#/Vol] 8.6 E9/L Normal 4.0 - 11.0 E9/L [facility] No Panel InformationOrdered By: Bre Ventura on 08-06-2022 Sed Rate Automated 9 mm/h Normal 0 - 19 mm/hr [facility] CHEMISTRYOrdered By: SYSTEM SYSTEM on 05-31-2022 Anion gap [Moles/Vol] 12 mmol/L Normal 6 - 16 mEq/L [facility] Calcium [Mass/Vol] 9.2 mg/dL Normal 8.9 - 11. 1 mg/dL [facility] Chloride [Moles/Vol] 105 mmol/L Normal 101 - 1 11 mmol/L [facility] CO2 [Moles/Vol] 24 mmol/L Normal 21 - 31 mmol/L [facility] Creatinine [Mass/Vol] 1.6 mg/dL High 0.5 - 1.3 mg/dL [facility] GFR/1.73 sq M.predicted among blacks MDRD (S/P/Bld) [Vol rate/Area] 52 mL/min/1.73 m2 Low >=59mL/min/ 1.73 m2 [facility] Chem S GFR/1.73 sq M.predicted among non-blacks MDRD (S/P/Bld) [Vol rate/Area] 43 mL/min/1.73 m2 Low >=59mL/min/ 1.73 m2 [facility] Chem S Glucose [Mass/Vol] 86 mg/dL Normal 55 - 199 mg/dL [facility] Potassium [Moles/Vol] 4.1 mmol/L Normal 3.5 - 5.3 mmol/L [facility] Sodium [Moles/Vol] 137 mmol/L Normal 135 - 145 mmol/L [facility] Urea nitrogen [Mass/Vol] 30 mg/dL High 5 - 21 mg/dL [facility] Urea nitrogen/Creatinine [Mass ratio] 19 mg/mg Normal 10 - 20 [facility] HEMATOLOGYOrdered By: SYSTEM SYSTEM on 05-31-2022 Basophils/100 WBC (Bld) 0.7 % Normal 0.0 - 2.0 % [facility] Basophils/Leukocytes Auto (Bld) [Pure # fraction] 0.1 E9/L Normal 0.0 - 0.2 E9/L [facility] Eosinophils/100 WBC (Bld) 1.5 % Normal 0.0 - 8.0 % [facility] Eosinophils/Leukocyte s Auto (Bld) [Pure # fraction] 0.1 E9/L Normal 0.0 - 0.5 E9/L [facility] Lymphocytes/100 WBC (Bld) 12.6 % Low 14.0 - 50.0 % [facility] Lymphocytes/Leukocyte s Auto (Bld) [Pure # fraction] 1.1 E9/L Normal 1.0 - 4.0 E9/L [facility] Monocytes/100 WBC (Bld) 6.0 % Normal 4.0 - 14.0 % [facility] Monocytes/Leukocytes Auto (Bld) [Pure # fraction] 0.5 E9/L Normal 0.2 - 1.0 E9/L [facility] Neutrophils/100 WBC (Bld) 79.2 % High 36.0 - 75.0 % [facility] Neutrophils/Leukocyte s Auto (Bld) [Pure # fraction] 6.8 E9/L Normal 2.0 - 7.5 E9/L [facility] HEMATOLOGYOrdered By: Tahmina Arias on 05-31-2022 Erythrocyte distribution width (RBC) [Ratio] 15.8 % High 10.9 - 14.2 % [facility] Hematocrit (Bld) [Volume fraction] 40.5 % Normal 37.7 - 49.0 % [facility] Hemoglobin (Bld) [Mass/Vol] 13.1 g/dL Low 13.5 - 17.5 gm/dL [facility] MCH (RBC) [Entitic mass] 31.5 pg Normal 27.0 - 34.0 pg [facility] MCHC (RBC) [Mass/Vol] 32.2 g/dL Normal 31.4 - 36.0 gm/dL [facility] MCV (RBC) [Entitic vol] 97.6 fL Normal 80.0 - 100.0 fL [facility] Platelet mean volume (Bld) [Entitic vol] 10.0 fL Normal 6.4 - 10.8 fL [facility] Platelets (Bld) [#/Vol] 208.0 E9/L Normal 150.0 - 500.0 E9/L [facility] RBC (Bld) [#/Vol] 4.2 E12/L Low 4.3 - 5.9 E12/L [facility] WBC corrected for nucl RBC Auto (Bld) [#/Vol] 8.6 E9/L Normal 4.0 - 11.0 E9/L [facility] CHEMISTRYOrdered By: SYSTEM SYSTEM on 04-30-2022 Albumin [Mass/Vol] 3.8 g/dL Normal 3.3 - 5.0 gm/dL [facility] Albumin/Globulin [Mass ratio] 1.3 {ratio} Normal 1.1 - 2.2 [facility] ALP [Catalytic activity/Vol] 70 [iU]/d Normal 21 - 98 Int._Unit/L [facility] ALT No additional P-5'-P [Catalytic activity/Vol] 15 [iU]/d Normal 6 - 46 Int._Unit/L [facility] Anion gap [Moles/Vol] 10 mmol/L Normal 6 - 16 mEq/L [facility] AST [Catalytic activity/Vol] 17 [iU]/d Normal 5 - 43 Int._Unit/L [facility] Bilirubin [Mass/Vol] 1.0 mg/dL Normal 0.0 - 1 .1 mg/dL [facility] Calcium [Mass/Vol] 9.2 mg/dL Normal 8.9 - 11. 1 mg/dL [facility] Chloride [Moles/Vol] 107 mmol/L Normal 101 - 1 11 mmol/L [facility] CO2 [Moles/Vol] 30 mmol/L Normal 21 - 31 mmol/L [facility] Creatinine [Mass/Vol] 1.4 mg/dL High 0.5 - 1.3 mg/dL [facility] GFR/1.73 sq M.predicted among blacks MDRD (S/P/Bld) [Vol rate/Area] mL/min/1.73 m2 Normal >=59mL/min/ 1.73 m2 [facility] Chem S GFR/1.73 sq M.predicted among non-blacks MDRD (S/P/Bld) [Vol rate/Area] 50 mL/min/1.73 m2 Low >=59mL/min/ 1.73 m2 [facility] Chem S Globulin (S) [Mass/Vol] 3.0 g/dL Normal 1.4 - 4.0 gm/dL [facility] Glucose [Mass/Vol] 87 mg/dL Normal 55 - 199 mg/dL [facility] Potassium [Moles/Vol] 3.7 mmol/L Normal 3.5 - 5.3 mmol/L [facility] Protein [Mass/Vol] 6.8 g/dL Normal 6.0 - 7.8 gm/dL [facility] Sodium [Moles/Vol] 143 mmol/L Normal 135 - 145 mmol/L [facility] Urea nitrogen [Mass/Vol] 29 mg/dL High 5 - 21 mg/dL [facility] Urea nitrogen/Creatinine [Mass ratio] 21 mg/mg High 10 - 20 [facility] HEMATOLOGYOrdered By: Viktor Fox on 04-30-2022 Erythrocyte distribution width (RBC) [Ratio] 17.2 % High 10.9 - 14.2 % [facility] Hematocrit (Bld) [Volume fraction] 39.4 % Normal 37.7 - 49.0 % [facility] Hemoglobin (Bld) [Mass/Vol] 13.6 g/dL Normal 13.5 - 17.5 gm/dL [facility] MCH (RBC) [Entitic mass] 32.6 pg Normal 27.0 - 34.0 pg [facility] MCHC (RBC) [Mass/Vol] 34.4 g/dL Normal 31.4 - 36.0 gm/dL [facility] MCV (RBC) [Entitic vol] 94.5 fL Normal 80.0 - 100.0 fL [facility] Platelet mean volume (Bld) [Entitic vol] 9.0 fL Normal 6.4 - 10.8 fL [facility] Platelets (Bld) [#/Vol] 216.0 E9/L Normal 150.0 - 500.0 E9/L [facility] RBC (Bld) [#/Vol] 4.2 E12/L Low 4.3 - 5.9 E12/L [facility] Sed Rate Automated 11 mm/h Normal 0 - 19 mm/hr [facility] WBC corrected for nucl RBC Auto (Bld) [#/Vol] 7.8 E9/L Normal 4.0 - 11.0 E9/L [facility] Reference Laboratory Testing Ordered By: Zeny DomainUser on 11-07-2021 SARS-CoV-2 (COVID-19) RNA MIGUE+probe Ql (Resp) Not detected Invalid Interpretation Code Not Detected [facility] Comment on above: Result Comment: This nucleic acid amplification test was developed and its performance characteristics determined by [employer]. Nucleic acid amplification tests include RT-PCR and TMA. This test has not been FDA cleared or approved. This test has been authorized by FDA under an Emergency Use Authorization (EUA). This test is only authorized for the duration of time the declaration that circumstances exist justifying the authorization of the emergency use of in vitro diagnostic tests for detection of SARS-CoV-2 virus and/or diagnosis of COVID-19 infection under section 564(b)(1) of the Act, 21 U.S.C. 360bbb-3(b) (1), unless the authorization is terminated or revoked sooner. When diagnostic testing is negative, the possibility of a false negative result should be considered in the context of a patient's recent exposures and the presence of clinical signs and symptoms consistent with COVID-19. An individual without symptoms of COVID-19 and who is not shedding SARS-CoV-2 virus would expect to have a negative (not detected) result in this assay. Performed at: [address] [id number] PhD Antionette Harris Covid-19 PCR ([facility])on SARS-CoV-2 (COVID-19) RNA MIGUE+probe Ql (Unsp spec) Not detected Normal NOT DETECTED [facility] Comment on above: Result Comment: This test is not yet approved or cleared by the [place] FDA. When there are no FDA-approved or cleared tests available, and other criteria are met, FDA can make tests available under an emergency access mechanism called an Emergency Use Authorization (EUA). The EUA for this test is supported by the [place] of Health and Human Service's (HHS's) declaration that circumstances exist to justify the emergency use of in vitro diagnostics for the detection and/or diagnosis of the virus that causes COVID-19. This EUA will remain in effect (meaning this test can be used) for the duration of the COVID-19 declaration justifying emergency of IVDs, unless it is terminated or revoked by FDA (after which the test may no longer be used). When diagnostic testing is negative, the possibility of a false negative should be considered in the context of a patient's recent exposures and the presence of clinical signs and symptoms consistent with SARS-CoV-2. Performed By: #### C VDTB #### [facility] [address] [place], [place] [address] Shannan Viola CBC AUTO DIFFon 03-23-2021 BASO # 0.1 103/ul Normal 0.0-0.[address] [facility] Comment on above: Performed By: #### C BC #### [facility] [address] [place], [place] [address] Shannan Viola Basophils/100 WBC (Bld) 0.8 % Normal 0.2-2.0 [facility] Comment on above: Performed By: #### C BC #### [facility] [address] [place] [address] Shannan Viola EO # 0.3 103/ul Normal 0.0-0.7 [facility] Comment on above: Performed By: #### C BC #### [facility] [address] [place], [place] [address] Shannan Viola Eosinophils/100 WBC (Bld) 4.1 % Normal 0.9-7.0 [facility] Comment on above: Performed By: #### C BC #### [facility] [address] [place], [place] [address] Shannan Viola Erythrocyte distribution width (RBC) [Ratio] 16.0 % Critically high 11.0-15.0 [facility] Comment on above: Performed By: #### C BC #### [facility] [address] [place], [place] [address] Shannan Viola Hematocrit (Bld) [Volume fraction] 40.8 % Critically low 42.0-54.0 [facility] Comment on above: Performed By: #### C BC #### [facility] [address] [place], [place] [address] Shannan Viola Hemoglobin (Bld) [Mass/Vol] 13.4 g/dL Critically low 14.0-18.0 [facility] Comment on above: Performed By: #### C BC #### [facility] [address] [address] Shannan Viola IG # 0.02 10e3/ul Normal 0.00-0.[address] [facility] Comment on above: Performed By: #### C BC #### [facility] [address] [address] Shannan Viola IG % 0.3 % Normal 0.0-0.[address] [facility] Comment on above: Performed By: #### C BC #### [facility] [address] [place] [address] Shannan Viola LYMPH # 2.1 103/ul Normal 1.2-3.8 [facility] Comment on above: Performed By: #### C BC #### [facility] [address] [place] [address] Shannan Viola Lymphocytes/100 WBC (Bld) 26.3 % Normal 20.5-60.[address] [facility] Comment on above: Performed By: #### C BC #### [facility] [address] [place] [address] Shannan Viola MANUAL DIFF REQ NO Normal [facility] Comment on above: Performed By: #### C BC #### [facility] [address] [place] [address] Shannan Viola MCH (RBC) [Entitic mass] 31.0 pg Normal 25.9-34.[address] [facility] Comment on above: Performed By: #### C BC #### [facility] [address] [place] [address] Shannan Viola MCHC (RBC) [Mass/Vol] 32.8 g/dL Normal 29.9-35.2 [facility] Comment on above: Performed By: #### C BC #### [facility] [address] [place] [address] Shannan Viola MCV (RBC) [Entitic vol] 94.4 fL Critically high 80.0-94.[address] [facility] Comment on above: Performed By: #### C BC #### [facility] [address] [place] [address] Shannan Viola MONO # 0.7 103/ul Normal 0.3-0.8 [facility] Comment on above: Performed By: #### C BC #### [facility] [address] [place], [place] [address] Shannan Rod Monocytes/100 WBC (Bld) 8.8 % Normal 1.7-12.[address] [facility] Comment on above: Performed By: #### C BC #### [facility] [address] [place], [place] [address] Shannan Rod NEUT # 4.7 103/ul Normal 1.4-6.5 [facility] Comment on above: Performed By: #### C BC #### [facility] [address] [place] [address] Shannan Rod Neutrophils/100 WBC (Bld) 59.7 % Normal 43.0-75.[address] [facility] Comment on above: Performed By: #### C BC #### [facility] [address] [place] [address] Shannan Rod Platelet mean volume (Bld) [Entitic vol] 10.0 fL Normal 9.5-13.5 [facility] Comment on above: Performed By: #### C BC #### [facility] [address] [place], [place] [address] Shannan Rod PLT 225 103/ul Normal 150-450 [facility] Comment on above: Performed By: #### C BC #### [facility] [address] [place], [place] [address] Shannan Rod RBC 4.32 106/ul Critically low 4.70-6.10 [facility] Comment on above: Performed By: #### C BC #### [facility] [address] [place], [place] [address] Shannandomenic Mejiaen WBC 7.8 103/ul Normal 4.0-11.0 [facility] Comment on above: Performed By: #### C BC #### [facility] [address] [place], [place] [address] Shannan Viola PROF CHEM 8 (BAS METB)on Anion gap [Moles/Vol] 9.5 mmol/L Normal [facility] Comment on above: Performed By: #### B MP #### [facility] [address] [address] Shannan Viola Calcium [Mass/Vol] 8.6 mg/dL Normal 8.4-10.2 [facility] Comment on above: Performed By: #### B MP #### [facility] [address] [address] Shannan Viola Chloride [Moles/Vol] 106 mmol/L Normal 98-107 [facility] Comment on above: Performed By: #### B MP #### [facility] [address] [address] Shannan Viola CO2 [Moles/Vol] 30.5 mmol/L Critically high 22.0-30.[address] [facility] Comment on above: Performed By: #### B MP #### [facility] [address] [address] Shannan Viola Creatinine [Mass/Vol] 1.22 mg/dL Normal 0.66-1.[address] [facility] Comment on above: Performed By: #### B MP #### [facility] [address] [id number] Shannan Viola EGFR-AF PAPUA [place] >60 Normal >=60 [facility] Comment on above: Performed By: #### B MP #### [facility] [address] [address] Shannan Viola EGFR-NON AF PAPUA [place] 59 mL/min/1.73m2 Critically low >=60 [facility] Comment on above: Performed By: #### B MP #### [facility] [address] [address] Shannan Viola Glucose [Mass/Vol] 84 mg/dL Normal 74-106 [facility] Comment on above: Performed By: #### B MP #### [facility] [address] [address] Shannan Viola Potassium [Moles/Vol] 4.0 mmol/L Normal 3.4-5.0 [facility] Comment on above: Performed By: #### B MP #### [facility] [address] [id number] Shannan Viola Sodium [Moles/Vol] 142 mmol/L Normal 137-145 [facility] Comment on above: Performed By: #### B MP #### [facility] [address] [place], [place] [address] Shannandomenic Rod Urea nitrogen [Mass/Vol] 15.0 mg/dL Normal 9.0-20.[address] [facility] Comment on above: Performed By: #### B MP #### [facility] [address] [place] [address] Shannandomenic Rod Urea nitrogen/Creatinine [Mass ratio] 12.3 mg/mg Normal [facility] Comment on above: Performed By: #### B MP #### [facility] [address] [place] [address] Shannan Rod PROTIMEon 03-23-2021 INR Coag (PPP) [Relative time] 0.99 {INR} Normal [facility] Comment on above: Performed By: #### P T, PTT #### [facility] [address] [place] [address] Shannandomenic Rod INR GUIDELINES SEE BELOW Normal [facility] Comment on above: Result Comment: YASMANY RED INR: 2.0 - 3.0 CONDITIONS NOT LISTED BELOW 2.5 - 3.5 FOR PROSTHETIC HEART VALVE REPLACEMENT 2.5 - 3.5 RECURRENT THROMBOSIS Performed By: #### P T, PTT #### [facility] [address] [place] [address] Shannandomenic Rod PT Coag (PPP) [Time] 10.8 s Normal 9.0-11.[address] [facility] Comment on above: Performed By: #### P T, PTT #### [facility] [address] [place], [place] [address] Shannan Rod PTTon 03-23-2021 aPTT Coag (Bld) [Time] 28.1 s Normal 22.3-36.[address] [facility] Comment on above: Performed By: #### P T, PTT #### [facility] [address] [place] [address] Shannan Rod XR FOOT BLANCA MIN 3 VIEWSon XR FOOT BLANCA MIN 3 VIEWS EXAMINATION: XR FOOT BLANCA MIN 3 VIEWS, XR ANKLE RT MIN 3 VIEWS HISTORY: Pain in both feet COMPARISON: No relevant comparison available. FINDINGS: RIGHT FINDINGS: BONES: No acute fracture or dislocation. Mild degenerative changes of the hindfoot and midfoot with marginal osteophyte formation and joint space narrowing. Minimal enthesopathic spurring of the calcaneus SOFT TISSUES: Mild ankle soft tissue swelling OTHER: Negative. LEFT FINDINGS: BONES: No acute fracture or dislocation. Remote arthroplasty head of the second metatarsal. Some lucency surrounding the implant could represent loosening. Implant/fusion of the second proximal interphalangeal joint. SOFT TISSUES: Negative. No visible soft tissue swelling. OTHER: Negative. IMPRESSION: RIGHT CONCLUSION: Mild degenerative changes LEFT CONCLUSION: Suspected loosening of second metatarsal head arthroplasty Electronically authenticated by: DEBORAH PETIT Date: 2021-02-02 11:[address] [facility] Vital Signs Date Time Vital Sign Value Performing Clinician Crescencioi ophelia 10-09-2023 12:56-0500 Diastolic blood pressure 71 mm[Hg] [facility] 10-09-2023 12:56-0500 Heart rate 76 /min Cyndee Globant [facility] 10-09-2023 12:56-0500 Mean blood pressure 82 mm[Hg] Cyndee Globant [facility] 10-09-2023 12:56-0500 Systolic blood pressure 103 mm[Hg] [facility] 07-16-2023 08:20-0400 Body height 187.96 cm [employer] Other [employer] Other 07-16-2023 08:20-0400 Body mass index (BMI) [Ratio] 30.55 kg/m2 [employer] Other [employer] Other 07-16-2023 08:20-0400 Body weight 107.96 kg [employer] Other [employer] Other 07-16-2023 08:20-0400 Diastolic blood pressure 90 mm[Hg] Valencia Torres Other [employer] Other 07-16-2023 08:20-0400 Systolic blood pressure 128 mm[Hg] Valencia Torres Other [employer] Other 07-09-2023 10:10-0400 Diastolic blood pressure 79 mm[Hg] Deborah Norman MD Work Phone: [facility] 07-09-2023 10:10-0400 Heart rate 57 /min Deborah Norman MD Work Phone: [facility] [place] 07-09-2023 10:10-0400 Respiratory rate 19 /min Deborah Norman MD Work Phone: [facility] [place] 07-09-2023 10:10-0400 SaO2% (BldA) [Mass fraction] 94 % Deborah Norman MD Work Phone: [facility] [place] 07-09-2023 10:10-0400 Systolic blood pressure 109 mm[Hg] Deborah Norman MD Work Phone: [facility] [place] 07-09-2023 09:46-0400 Body temperature 97.2 [degF] Deborah Norman MD Work Phone: [facility] [place] 06-18-2023 14:00-0400 Body height 187.96 cm Valencia Torres Other [employer] Other 06-18-2023 14:00-0400 Body mass index (BMI) [Ratio] 30.68 kg/m2 Valencia Torres Other [employer] Other 06-18-2023 14:00-0400 Body weight 108.41 kg Valencia Torres Other [employer] Other 05-28-2023 10:06-0400 Body height 187.7 cm Nick Anderson MD Work Phone: [facility] [place] 05-28-2023 10:06-0400 Body temperature 97.59 [degF] Nick Anderson MD Work Phone: [facility] [place] 05-28-2023 10:06-0400 Body weight 105.96 kg Nick Anderson MD Work Phone: [facility] [place] 05-28-2023 10:06-0400 Diastolic blood pressure 86 mm[Hg] Nick Anderson MD Work Phone: [facility] [place] 05-28-2023 10:06-0400 Heart rate 64 /min Nick Anderson MD Work Phone: [facility] [place] 05-28-2023 10:06-0400 Respiratory rate 16 /min Nick Anderson MD Work Phone: [facility] 05-28-2023 10:06-0400 SaO2% (BldA) [Mass fraction] 95 % Nick Anderson MD Work Phone: [facility] 05-28-2023 10:06-0400 Systolic blood pressure 124 mm[Hg] Nick Anderson MD Work Phone: [facility] 05-07-2023 13:15-0400 Diastolic blood pressure 68 mm[Hg] Bryon Anthony [facility] 05-07-2023 13:15-0400 Heart rate 42 /min Bryon Anthony [facility] 05-07-2023 13:15-0400 Mean blood pressure 82 mm[Hg] Bryon Anthony [facility] 05-07-2023 13:15-0400 Respiratory rate 14 /min Bryon Anthony [facility] 05-07-2023 13:15-0400 Systolic blood pressure 109 mm[Hg] Bryon Anthony [facility] 04-29-2023 08:32-0400 Blood Pressure Location Cyndee SANCHEZ [facility] 04-29-2023 08:32-0400 Diastolic blood pressure 73 mm[Hg] Cyndee SANCHEZ [facility] 04-29-2023 08:32-0400 Heart rate 61 /min Cyndee SANCHEZ [facility] 04-29-2023 08:32-0400 SaO2% (BldA) [Mass fraction] 95 % Cyndee SANCHEZ [facility] 04-29-2023 08:32-0400 Systolic blood pressure 116 mm[Hg] Cyndee SANCHEZ [facility] 04-11-2023 09:30-0400 Body height 187.96 cm [employer] Other [employer] Other 04-11-2023 09:30-0400 Body mass index (BMI) [Ratio] 29.78 kg/m2 [employer] Other [employer] Other 04-11-2023 09:30-0400 Body weight 105.24 kg [employer] Other [employer] Other 04-11-2023 09:30-0400 Diastolic blood pressure 82 mm[Hg] [employer] Other [employer] Other 04-11-2023 09:30-0400 Systolic blood pressure 122 mm[Hg] [employer] Other [employer] Other 04-09-2023 13:30-0400 Diastolic blood pressure 95 mm[Hg] Deborah Norman MD Work Phone: [facility] [place] 04-09-2023 13:30-0400 Heart rate 78 /min Deborah Norman MD Work Phone: [facility] [place] 04-09-2023 13:30-0400 Respiratory rate 15 /min Deborah Norman MD Work Phone: [facility] [place] 04-09-2023 13:30-0400 SaO2% (BldA) [Mass fraction] 95 % Deborah Norman MD Work Phone: [facility] [place] 04-09-2023 13:30-0400 Systolic blood pressure 138 mm[Hg] Deborah Norman MD Work Phone: [facility] [place] 04-09-2023 13:05-0400 Body temperature 97.3 [degF] Deborah Norman MD Work Phone: [facility] [place] 03-21-2023 10:54-0400 Body temperature 97.81 [degF] Chair Medina Work Phone: [facility] [place] 03-21-2023 10:54-0400 Diastolic blood pressure 74 mm[Hg] Chair Medina Work Phone: [facility] [facility] [place] 03-21-2023 10:54-0400 Heart rate 63 /min Chair Medina Work Phone: [facility] [place] 03-21-2023 10:54-0400 Respiratory rate 18 /min Chair Medina Work Phone: [facility] [place] 03-21-2023 10:54-0400 SaO2% (BldA) [Mass fraction] 95 % Chair Medina Work Phone: [facility] [place] 03-21-2023 10:54-0400 Systolic blood pressure 108 mm[Hg] Chair Alfred Work Phone: [facility] [place] 03-19-2023 08:39-0400 Body height 187.7 cm Nick Anderson MD Work Phone: [facility] [place] 03-19-2023 08:39-0400 Body temperature 97.2 [degF] Nick Anderson MD Work Phone: [facility] [place] 03-19-2023 08:39-0400 Body weight 110.04 kg Nick Anderson MD Work Phone: [facility] [place] 03-19-2023 08:39-0400 Diastolic blood pressure 70 mm[Hg] Nick Anderson MD Work Phone: [facility] [place] 03-19-2023 08:39-0400 Heart rate 69 /min Nick Anderson MD Work Phone: [facility] [place] 03-19-2023 08:39-0400 Respiratory rate 16 /min Nick Anderson MD Work Phone: [facility] [place] 03-19-2023 08:39-0400 SaO2% (BldA) [Mass fraction] 96 % Nick Anderson MD Work Phone: [facility] [place] 03-19-2023 08:39-0400 Systolic blood pressure 105 mm[Hg] Nick Anderson MD Work Phone: [facility] [place] 03-18-2023 10:40-0400 Body temperature 97.88 [degF] [facility] 03-18-2023 10:40-0400 Diastolic blood pressure 91 mm[Hg] [facility] 03-18-2023 10:40-0400 Heart rate 69 /min [facility] 03-18-2023 10:40-0400 Respiratory rate 18 /min [facility] 03-18-2023 10:40-0400 SaO2% (BldA) [Mass fraction] 96 % [facility] 03-18-2023 10:40-0400 Systolic blood pressure 142 mm[Hg] [facility] 03-13-2023 10:24-0400 Body temperature 96.69 [degF] JOSE Vásquez MD Work Phone: [facility] [place] 03-13-2023 10:24-0400 Body weight 108.41 kg JOSE Vásquez MD Work Phone: [facility] [place] 03-13-2023 10:24-0400 Diastolic blood pressure 70 mm[Hg] JOSE Vásquez MD Work Phone: [facility] [place] 03-13-2023 10:24-0400 Heart rate 60 /min JOSE Vásquez MD Work Phone: [facility] [place] 03-13-2023 10:24-0400 Respiratory rate 18 /min JOSE Vásquez MD Work Phone: [facility] [place] 03-13-2023 10:24-0400 SaO2% (BldA) [Mass fraction] 98 % JOSE Vásquez MD Work Phone: [facility] [place] 03-13-2023 10:24-0400 Systolic blood pressure 106 mm[Hg] JOSE Vásquez MD Work Phone: [facility] [place] 02-21-2023 11:33-0400 Body temperature 97.5 [degF] Chair Medina Work Phone: [facility] [place] 02-21-2023 11:33-0400 Diastolic blood pressure 75 mm[Hg] Chair Alfred Work Phone: [facility] [place] 02-21-2023 11:33-0400 Heart rate 57 /min Chair Medina Work Phone: [facility] [place] 02-21-2023 11:33-0400 Respiratory rate 18 /min Chair Medina Work Phone: [facility] [place] 02-21-2023 11:33-0400 SaO2% (BldA) [Mass fraction] 97 % Chair Medina Work Phone: [facility] [place] 02-21-2023 11:33-0400 Systolic blood pressure 112 mm[Hg] Chair Medina Work Phone: [facility] [place] 02-19-2023 09:21-0400 Body height 187.7 cm Nick Anderson MD Work Phone: [facility] [place] 02-19-2023 09:21-0400 Body temperature 97.3 [degF] Nick Anderson MD Work Phone: [facility] [place] 02-19-2023 09:21-0400 Body weight 111.4 kg Nick Anderson MD Work Phone: [facility] [place] 02-19-2023 09:21-0400 Diastolic blood pressure 88 mm[Hg] Nick Anderson MD Work Phone: [facility] [place] 02-19-2023 09:21-0400 Heart rate 61 /min Nick Anderson MD Work Phone: [facility] [place] 02-19-2023 09:21-0400 Respiratory rate 18 /min Nick Anderson MD Work Phone: [facility] [place] 02-19-2023 09:21-0400 SaO2% (BldA) [Mass fraction] 96 % Nick Anderson MD Work Phone: [facility] [place] 02-19-2023 09:21-0400 Systolic blood pressure 107 mm[Hg] Nick Anderson MD Work Phone: [facility] [place] 02-07-2023 14:38-0400 Body weight 110.59 kg Deborah Norman MD Work Phone: [facility] [place] 02-07-2023 14:38-0400 Diastolic blood pressure 69 mm[Hg] Deborah Norman MD Work Phone: [facility] [place] 02-07-2023 14:38-0400 Heart rate 77 /min Deborah Norman MD Work Phone: [facility] [place] 02-07-2023 14:38-0400 SaO2% (BldA) [Mass fraction] 98 % Deborah Norman MD Work Phone: [facility] [place] 02-07-2023 14:38-0400 Systolic blood pressure 110 mm[Hg] Deborah Norman MD Work Phone: [facility] [place] 02-07-2023 10:08-0400 Body temperature 98.6 [degF] Chair Medina Work Phone: [facility] [place] 02-07-2023 10:08-0400 Diastolic blood pressure 69 mm[Hg] Chair Alfred Work Phone: [facility] [place] 02-07-2023 10:08-0400 Heart rate 62 /min Chair Medina Work Phone: [facility] [place] 02-07-2023 10:08-0400 Respiratory rate 18 /min Chair Alfred Work Phone: [facility] [place] 02-07-2023 10:08-0400 SaO2% (BldA) [Mass fraction] 96 % Chair Medina Work Phone: [facility] [place] 02-07-2023 10:08-0400 Systolic blood pressure 99 mm[Hg] Chair Alfred Work Phone: [facility] [place] 02-04-2023 13:40-0400 Body weight 108.86 kg Mert Krueger MD Work Phone: [facility] [place] 02-04-2023 13:40-0400 Diastolic blood pressure 69 mm[Hg] Mert Krueger MD Work Phone: [facility] [place] 02-04-2023 13:40-0400 Heart rate 76 /min Mert Krueger MD Work Phone: [facility] [place] 02-04-2023 13:40-0400 Systolic blood pressure 105 mm[Hg] Mert Krueger MD Work Phone: [facility] [place] 01-24-2023 10:49-0400 Body temperature 97.5 [degF] Chair Medina Work Phone: [facility] [place] 01-24-2023 10:49-0400 Diastolic blood pressure 68 mm[Hg] Chair Medina Work Phone: [facility] [place] 01-24-2023 10:49-0400 Heart rate 59 /min Chair Medina Work Phone: [facility] [place] 01-24-2023 10:49-0400 Respiratory rate 18 /min Chair Alfred Work Phone: [facility] [place] 01-24-2023 10:49-0400 SaO2% (BldA) [Mass fraction] 97 % Chair Alfred Work Phone: [facility] [place] 01-24-2023 10:49-0400 Systolic blood pressure 96 mm[Hg] Chair Medina Work Phone: [facility] [place] 01-22-2023 15:50-0400 Blood Pressure Location [facility] 01-22-2023 15:50-0400 Diastolic blood pressure 76 mm[Hg] Santiago [facility] 01-22-2023 15:50-0400 Heart rate 103 /min Santiago Kong [facility] 01-22-2023 15:50-0400 SaO2% (BldA) [Mass fraction] 96 % Santiago [facility] 01-22-2023 15:50-0400 Systolic blood pressure 126 mm[Hg] Santiago [facility] 01-22-2023 09:15-0400 Body temperature 97.7 [degF] Chair Medina Work Phone: [facility] [place] 01-22-2023 09:15-0400 Diastolic blood pressure 75 mm[Hg] Chair Alfred Work Phone: [facility] [place] 01-22-2023 09:15-0400 Heart rate 59 /min Chair Alfred Work Phone: [facility] [place] 01-22-2023 09:15-0400 Respiratory rate 18 /min Chair Alfred Work Phone: [facility] [place] 01-22-2023 09:15-0400 SaO2% (BldA) [Mass fraction] 97 % Chair Medina Work Phone: [facility] [place] 01-22-2023 09:15-0400 Systolic blood pressure 111 mm[Hg] Chair Medina Work Phone: [facility] [place] 01-10-2023 09:59-0400 Body temperature 98.01 [degF] Chair Alfred Work Phone: [facility] [place] 01-10-2023 09:59-0400 Diastolic blood pressure 84 mm[Hg] Chair Medina Work Phone: [facility] [place] 01-10-2023 09:59-0400 Heart rate 61 /min Chair Medina Work Phone: [facility] [place] 01-10-2023 09:59-0400 Respiratory rate 18 /min Chair Medina Work Phone: [facility] [place] 01-10-2023 09:59-0400 SaO2% (BldA) [Mass fraction] 98 % Chair Alfred Work Phone: [facility] [place] 01-10-2023 09:59-0400 Systolic blood pressure 129 mm[Hg] Chair Medina Work Phone: [facility] [place] 01-08-2023 08:19-0400 Body height 187.7 cm Nick Anderson MD Work Phone: [facility] [place] 01-08-2023 08:19-0400 Body temperature 97.2 [degF] Nick Anderson MD Work Phone: [facility] [place] 01-08-2023 08:19-0400 Body weight 113.31 kg Nick Anderson MD Work Phone: [facility] [place] 01-08-2023 08:19-0400 Diastolic blood pressure 73 mm[Hg] Nick Anderson MD Work Phone: [facility] [place] 01-08-2023 08:19-0400 Heart rate 68 /min Nick Anderson MD Work Phone: [facility] [place] 01-08-2023 08:19-0400 Respiratory rate 16 /min Nick Anderson MD Work Phone: [facility] [place] 01-08-2023 08:19-0400 SaO2% (BldA) [Mass fraction] 98 % Nick Anderson MD Work Phone: [facility] [place] 01-08-2023 08:19-0400 Systolic blood pressure 107 mm[Hg] Nick Anderson MD Work Phone: [facility] [place] 12-27-2022 10:25-0500 Body temperature 97.59 [degF] Chair Alfred Work Phone: [facility] [place] 12-27-2022 10:25-0500 Diastolic blood pressure 59 mm[Hg] Chair Alfred Work Phone: [facility] [place] 12-27-2022 10:25-0500 Heart rate 65 /min Chair Medina Work Phone: [facility] [place] 12-27-2022 10:25-0500 Respiratory rate 16 /min Chair Medina Work Phone: [facility] [place] 12-27-2022 10:25-0500 SaO2% (BldA) [Mass fraction] 97 % Chair Medina Work Phone: [facility] [place] 12-27-2022 10:25-0500 Systolic blood pressure 92 mm[Hg] Chair Medina Work Phone: [facility] [place] 12-17-2022 15:11-0500 Body height 186.2 cm Nick Anderson MD Work Phone: [facility] [place] 12-17-2022 15:11-0500 Body temperature 97.3 [degF] Nick Anderson MD Work Phone: [facility] [place] 12-17-2022 15:11-0500 Body weight 111.22 kg Nick Anderson MD Work Phone: [facility] [place] 12-17-2022 15:11-0500 Diastolic blood pressure 63 mm[Hg] Nick Anderson MD Work Phone: [facility] [place] 12-17-2022 15:11-0500 Heart rate 71 /min Nick Anderson MD Work Phone: [facility] [place] 12-17-2022 15:11-0500 Respiratory rate 16 /min Nick Anderson MD Work Phone: [facility] [place] 12-17-2022 15:11-0500 SaO2% (BldA) [Mass fraction] 100 % Nick Anderson MD Work Phone: [facility] [place] 12-17-2022 15:11-0500 Systolic blood pressure 111 mm[Hg] Nick Anderson MD Work Phone: [facility] [place] 11-19-2022 14:32-0500 Body height 186.2 cm Nick Anderson MD Work Phone: [facility] [place] 11-19-2022 14:32-0500 Body temperature 97.59 [degF] Nick Anderson MD Work Phone: [facility] [place] 11-19-2022 14:32-0500 Body weight 110.5 kg Nick Anderson MD Work Phone: [facility] [place] 11-19-2022 14:32-0500 Diastolic blood pressure 87 mm[Hg] Nick Anderson MD Work Phone: [facility] [place] 11-19-2022 14:32-0500 Heart rate 77 /min Nick Anderson MD Work Phone: [facility] [place] 11-19-2022 14:32-0500 Respiratory rate 16 /min Nick Anderson MD Work Phone: [facility] [place] 11-19-2022 14:32-0500 SaO2% (BldA) [Mass fraction] 98 % Nick Anderson MD Work Phone: [facility] [place] 11-19-2022 14:32-0500 Systolic blood pressure 126 mm[Hg] Nick Anderson MD Work Phone: [facility] [place] 11-19-2022 14:12-0500 Body temperature 97.39 [degF] JOSE Vásquez MD Work Phone: [facility] [place] 11-19-2022 14:12-0500 Body weight 110.5 kg JOSE Vásquez MD Work Phone: [facility] [place] 11-19-2022 14:12-0500 Diastolic blood pressure 61 mm[Hg] JOSE Vásquez MD Work Phone: [facility] [place] 11-19-2022 14:12-0500 Heart rate 76 /min JOSE Vásquez MD Work Phone: [facility] [place] 11-19-2022 14:12-0500 Respiratory rate 16 /min JOSE Vásquez MD Work Phone: [facility] [place] 11-19-2022 14:12-0500 SaO2% (BldA) [Mass fraction] 98 % JOSE Vásquez MD Work Phone: [facility] [place] 11-19-2022 14:12-0500 Systolic blood pressure 95 mm[Hg] JOSE Vásquez MD Work Phone: [facility] [place] 11-12-2022 14:08-0500 Body temperature 97.5 [degF] JOSE Vásquez MD Work Phone: [facility] [place] 11-12-2022 14:08-0500 Body weight 110.86 kg JOSE Vásquez MD Work Phone: [facility] [place] 11-12-2022 14:08-0500 Diastolic blood pressure 65 mm[Hg] JOSE Vásquez MD Work Phone: [facility] [place] 11-12-2022 14:08-0500 Heart rate 89 /min JOSE Vásquez MD Work Phone: [facility] [place] 11-12-2022 14:08-0500 Respiratory rate 18 /min JOSE Vásquez MD Work Phone: [facility] [place] 11-12-2022 14:08-0500 SaO2% (BldA) [Mass fraction] 96 % JOSE Vásquez MD Work Phone: [facility] [place] 11-12-2022 14:08-0500 Systolic blood pressure 99 mm[Hg] JOSE Vásquez MD Work Phone: [facility] [place] 11-05-2022 15:06-0500 Body temperature 96.3 [degF] JOSE Vásquez MD Work Phone: [facility] [place] 11-05-2022 15:06-0500 Body weight 112.49 kg JOSE Vásquez MD Work Phone: [facility] [place] 11-05-2022 15:06-0500 Diastolic blood pressure 80 mm[Hg] JOSE Vásquez MD Work Phone: [facility] [place] 11-05-2022 15:06-0500 Heart rate 74 /min JOSE Vásquez MD Work Phone: [facility] [place] 11-05-2022 15:06-0500 Respiratory rate 18 /min JOSE Vásquez MD Work Phone: [facility] [place] 11-05-2022 15:06-0500 SaO2% (BldA) [Mass fraction] 94 % JOSE Vásquez MD Work Phone: [facility] [place] 11-05-2022 15:06-0500 Systolic blood pressure 112 mm[Hg] JOSE Vásquez MD Work Phone: [facility] [place] 10-29-2022 15:18-0500 Body height 186.2 cm Ryan Hollis APRN.REMARKETING REP Work Phone: [facility] [place] 10-29-2022 15:18-0500 Body temperature 96.69 [degF] Ryan Hollis APRN.REMARKETING REP Work Phone: [facility] [place] 10-29-2022 15:18-0500 Body weight 111.13 kg Ryan Hollis APRN.REMARKETING REP Work Phone: [facility] [place] 10-29-2022 15:18-0500 Diastolic blood pressure 73 mm[Hg] Ryna Hollis APRN.REMARKETING REP Work Phone: [facility] [place] 10-29-2022 15:18-0500 Heart rate 78 /min Ryan Hollis APRN.REMARKETING REP Work Phone: [facility] [place] 10-29-2022 15:18-0500 Respiratory rate 16 /min Ryan Hollis APRN.REMARKETING REP Work Phone: [facility] [place] 10-29-2022 15:18-0500 SaO2% (BldA) [Mass fraction] 100 % Ryan Hollis APRN.REMARKETING REP Work Phone: [facility] [place] 10-29-2022 15:18-0500 Systolic blood pressure 112 mm[Hg] Ryan Hollis APRN.CNP Work Phone: [facility] [place] 10-29-2022 14:36-0500 Body temperature 96.69 [degF] Dennis Cheung MD Work Phone: [facility] [place] 10-29-2022 14:36-0500 Body weight 111.13 kg Dennis Cheung MD Work Phone: [facility] [place] 10-29-2022 14:36-0500 Diastolic blood pressure 73 mm[Hg] Dennis Cheung MD Work Phone: [facility] [place] 10-29-2022 14:36-0500 Heart rate 78 /min Dennis Cheung MD Work Phone: [facility] [place] 10-29-2022 14:36-0500 Respiratory rate 16 /min Dennis Cheung MD Work Phone: [facility] [place] 10-29-2022 14:36-0500 SaO2% (BldA) [Mass fraction] 100 % Dennis Cheung MD Work Phone: [facility] [place] 10-29-2022 14:36-0500 Systolic blood pressure 112 mm[Hg] Dennis Cheung MD Work Phone: [facility] [place] 10-24-2022 10:11-0500 Blood Pressure Location ASHLEY TRINIDAD [facility] 10-24-2022 10:11-0500 Diastolic blood pressure 69 mm[Hg] ASHLEY TRINIDAD [facility] 10-24-2022 10:11-0500 Heart rate 70 /min ASHLEY TRINIDAD [facility] 10-24-2022 10:11-0500 Respiratory rate 16 /min ASHLEY TRINIDAD [facility] 10-24-2022 10:11-0500 Systolic blood pressure 117 mm[Hg] ASHLEY TRINIDAD [facility] 10-23-2022 08:11-0500 Body temperature 97.3 [degF] JOSE Vásquez MD Work Phone: [facility] [place] 10-23-2022 08:11-0500 Body weight 112.04 kg JOSE Vásquez MD Work Phone: [facility] [place] 10-23-2022 08:11-0500 Diastolic blood pressure 69 mm[Hg] JOSE Vásquez MD Work Phone: [facility] [place] 10-23-2022 08:11-0500 Heart rate 78 /min JOSE Vásquez MD Work Phone: [facility] [place] 10-23-2022 08:11-0500 Respiratory rate 16 /min JOSE Vásquez MD Work Phone: [facility] [place] 10-23-2022 08:11-0500 SaO2% (BldA) [Mass fraction] 97 % JOSE Vásquez MD Work Phone: [facility] [place] 10-23-2022 08:11-0500 Systolic blood pressure 110 mm[Hg] JOSE Vásquez MD Work Phone: [facility] [place] 10-16-2022 13:33-0500 Body temperature 97.39 [degF] JOSE Vásquez MD Work Phone: [facility] [place] 10-16-2022 13:33-0500 Body weight 111.4 kg JOSE Vásquez MD Work Phone: [facility] [place] 10-16-2022 13:33-0500 Diastolic blood pressure 60 mm[Hg] JOSE Vásquez MD Work Phone: [facility] [place] 10-16-2022 13:33-0500 Heart rate 69 /min JOSE Vásquez MD Work Phone: [facility] [place] 10-16-2022 13:33-0500 Respiratory rate 18 /min JOSE Vásquez MD Work Phone: [facility] [place] 10-16-2022 13:33-0500 SaO2% (BldA) [Mass fraction] 95 % NA Yesi ARRINGTON Work Phone: [facility] [place] 10-16-2022 13:33-0500 Systolic blood pressure 97 mm[Hg] NA Yesi ARRINGTON Work Phone: [facility] [place] 10-11-2022 14:49-0500 Body height 186.2 cm Ryan Hollis APRN.REMARKETING REP Work Phone: [facility] [place] 10-11-2022 14:49-0500 Body temperature 97.59 [degF] Ryan Hollis APRN.REMARKETING REP Work Phone: [facility] [place] 10-11-2022 14:49-0500 Body weight 113.22 kg Ryan Hollis APRN.REMARKETING REP Work Phone: [facility] [place] 10-11-2022 14:49-0500 Diastolic blood pressure 82 mm[Hg] Ryan Hollis APRN.REMARKETING REP Work Phone: [facility] [place] 10-11-2022 14:49-0500 Heart rate 97 /min Ryan Hollis APRN.REMARKETING REP Work Phone: [facility] [place] 10-11-2022 14:49-0500 Respiratory rate 16 /min Ryan Hollis APRN.REMARKETING REP Work Phone: [facility] [place] 10-11-2022 14:49-0500 SaO2% (BldA) [Mass fraction] 96 % Ryan Hollis APRN.REMARKETING REP Work Phone: [facility] [place] 10-11-2022 14:49-0500 Systolic blood pressure 147 mm[Hg] Ryan Hollis APRN.REMARKETING REP Work Phone: [facility] [place] 10-03-2022 13:30-0500 Blood Pressure Location Cyndee SANCHEZ [facility] 10-03-2022 13:30-0500 Diastolic blood pressure 70 mm[Hg] Cyndee SANCHEZ [facility] 10-03-2022 13:30-0500 Heart rate 90 /min Cyndee SANCHEZ [facility] 10-03-2022 13:30-0500 Respiratory rate 18 /min Cyndee SANCHEZ [facility] 10-03-2022 13:30-0500 SaO2% (BldA) [Mass fraction] 96 % Cyndee SANCHEZ [facility] 10-03-2022 13:30-0500 Systolic blood pressure 110 mm[Hg] Cyndee SANCHEZ [facility] 10-02-2022 14:30-0500 Body height 186.2 cm Nick Anderson MD Work Phone: [facility] [place] 10-02-2022 14:30-0500 Body temperature 97.81 [degF] Nick Anderson MD Work Phone: [facility] [place] 10-02-2022 14:30-0500 Body weight 113.94 kg Nick Anderson MD Work Phone: [facility] [place] 10-02-2022 14:30-0500 Diastolic blood pressure 78 mm[Hg] Nick Anderson MD Work Phone: [facility] [place] 10-02-2022 14:30-0500 Heart rate 83 /min Nick Anderson MD Work Phone: [facility] [place] 10-02-2022 14:30-0500 Respiratory rate 18 /min Nick Anderson MD Work Phone: [facility] [place] 10-02-2022 14:30-0500 SaO2% (BldA) [Mass fraction] 97 % Nick Anderson MD Work Phone: [facility] [place] 10-02-2022 14:30-0500 Systolic blood pressure 113 mm[Hg] Nick Anderson MD Work Phone: [facility] [place] 09-20-2022 07:56-0500 Body temperature 96.69 [degF] JOSE Vásquez MD Work Phone: [facility] [place] 09-20-2022 07:56-0500 Body weight 113.31 kg JOSE Vásquez MD Work Phone: [facility] [place] 09-20-2022 07:56-0500 Diastolic blood pressure 70 mm[Hg] JOSE Vásquez MD Work Phone: [facility] [place] 09-20-2022 07:56-0500 Heart rate 66 /min JOSE Vásquez MD Work Phone: [facility] [place] 09-20-2022 07:56-0500 Respiratory rate 18 /min JOSE Vásquez MD Work Phone: [facility] [place] 09-20-2022 07:56-0500 SaO2% (BldA) [Mass fraction] 97 % JOSE Vásquez MD Work Phone: [facility] [place] 09-20-2022 07:56-0500 Systolic blood pressure 106 mm[Hg] JOSE Vásquez MD Work Phone: [facility] [place] 09-17-2022 16:03-0500 Body height 186.2 cm Nick Anderson MD Work Phone: [facility] [place] 09-17-2022 16:03-0500 Body temperature 97.5 [degF] Nick Anderson MD Work Phone: [facility] [place] 09-17-2022 16:03-0500 Body weight 111.22 kg Nick Anderson MD Work Phone: [facility] [place] 09-17-2022 16:03-0500 Diastolic blood pressure 72 mm[Hg] Nick Anderson MD Work Phone: [facility] [place] 09-17-2022 16:03-0500 Heart rate 68 /min Nick Anderson MD Work Phone: [facility] [place] 09-17-2022 16:03-0500 Respiratory rate 16 /min Nick Anderson MD Work Phone: [facility] [place] 09-17-2022 16:03-0500 SaO2% (BldA) [Mass fraction] 97 % Nick Anderson MD Work Phone: [facility] [place] 09-17-2022 16:03-0500 Systolic blood pressure 135 mm[Hg] Nick Anderson MD Work Phone: [facility] [place] 08-20-2022 08:15-0400 Diastolic blood pressure 101 mm[Hg] Mervat NILL [facility] 08-20-2022 08:15-0400 Heart rate 68 /min Mervat NILL [facility] 08-20-2022 08:15-0400 Respiratory rate 18 /min Mervat NILL [facility] 08-20-2022 08:15-0400 SaO2% (BldA) [Mass fraction] 96 % Mervat NILL [facility] 08-20-2022 08:15-0400 Systolic blood pressure 139 mm[Hg] Mervat NILL [facility] 08-20-2022 08:12-0400 Diastolic blood pressure 97 mm[Hg] Mervat NILL [facility] 08-20-2022 08:12-0400 Heart rate 67 /min Mervat NILL [facility] 08-20-2022 08:12-0400 Respiratory rate 10 /min Mervat NILL [facility] 08-20-2022 08:12-0400 SaO2% (BldA) [Mass fraction] 96 % Mervat NILL [facility] 08-20-2022 08:12-0400 Systolic blood pressure 130 mm[Hg] Mervat NILL [facility] 08-20-2022 08:05-0400 Diastolic blood pressure 92 mm[Hg] Mervat NILL [facility] 08-20-2022 08:05-0400 Heart rate 69 /min Mervat NILL [facility] 08-20-2022 08:05-0400 Respiratory rate 14 /min Mervat NILL [facility] 08-20-2022 08:05-0400 SaO2% (BldA) [Mass fraction] 93 % Mervat NILL [facility] 08-20-2022 08:05-0400 Systolic blood pressure 127 mm[Hg] Mervat NILL [facility] 08-20-2022 07:50-0400 Body temperature 97.7 [degF] Mervat NILL [facility] 08-20-2022 07:45-0400 Respiratory rate 14 /min Mervat NILL [facility] 08-20-2022 07:40-0400 Respiratory rate 13 /min Mervat NILL [facility] 08-20-2022 07:35-0400 Respiratory rate 14 /min Mervat NILL [facility] 08-20-2022 07:10-0400 Blood Pressure Location Mervat NILL [facility] 08-20-2022 07:10-0400 Body temperature 96.98 [degF] Mervat NILL [facility] 08-14-2022 08:42-0400 Blood Pressure Location Mervat NILL [facility] 08-14-2022 08:42-0400 Diastolic blood pressure 67 mm[Hg] Mervat NILL [facility] 08-14-2022 08:42-0400 Heart rate 63 /min Mervat NILL [facility] 08-14-2022 08:42-0400 Respiratory rate 16 /min Mervat NILL [facility] 08-14-2022 08:42-0400 Systolic blood pressure 114 mm[Hg] Mervat NILL [facility] 05-31-2022 10:53-0400 Blood Pressure Location VALERIE SIDELL [facility] 05-31-2022 10:53-0400 Diastolic blood pressure 70 mm[Hg] VALERIE SIDELL [facility] 05-31-2022 10:53-0400 Heart rate 74 /min VALERIE SIDELL [facility] 05-31-2022 10:53-0400 SaO2% (BldA) [Mass fraction] 96 % VALERIE SIDELL [facility] 05-31-2022 10:53-0400 Systolic blood pressure 114 mm[Hg] VALERIE SIDELL [facility] 04-03-2022 10:55-0400 Blood Pressure Location Cyndee STANG [facility] 04-03-2022 10:55-0400 Diastolic blood pressure 62 mm[Hg] Cyndee STANG [facility] 04-03-2022 10:55-0400 Heart rate 76 /min Cyndee STANG [facility] 04-03-2022 10:55-0400 Respiratory rate 18 /min Cyndee STANG [facility] 04-03-2022 10:55-0400 SaO2% (BldA) [Mass fraction] 96 % Cyndee SANCHEZ [facility] 04-03-2022 [id number] Systolic blood pressure 98 mm[Hg] Cyndee SANCHEZ [facility] Encounters Encounter Date Encounter Type Care Provider Facility Start: 11-05-2023 ambulatory RENEEKAMI HAMILTONMaulik Facility:[facility] Start: 10-11-2023 End: 10-11-2023 ambulatory CHELSIE FERNANDO Not Available Start: 10-10-2023 Follow-up encounter Deborah cain MD Work Phone: Colorectal Surgery Comment on above: Encounter for follow -up surveillance of rectal cancer (Primary Dx) Start: 10-10-2023 End: 10-10-2023 ambulatory LORENZO Dailey WHITNEY Facility:[facility] Start: 10-10-2023 End: 10-10-2023 ambulatory Lab/Port [facility] Carlos Simon Work Phone: Hematology/Oncology Comment on above: Rectal cancer (HCC) (Primary Dx) Start: 10-09-2023 End: 10-10-2023 ambulatory Lorenzo Dailey WHITNEY Facility:[facility] Start: 10-09-2023 End: 10-09-2023 Pain Management Cyndeeportia Torres [facility] Start: 09-26-2023 Refill Nick Andesron MD Work Phone: Hematology/Oncology Comment on above: Refill Request Start: 09-05-2023 End: 09-05-2023 ambulatory LORENZO Dailey WHITNEY Facility:[facility] Start: 08-27-2023 Telephone encounter Nick wong MD Work Phone: Cancer Appts Comment on above: Future Appointment Start: 08-27-2023 End: 08-27-2023 ambulatory LORENZO Dailey WHITNEY Facility:[facility] Start: 08-22-2023 End: 08-23-2023 ambulatory Corey MCKEE Facility:[facility] Start: 08-22-2023 End: 08-22-2023 Patient encounter procedure Corey MCKEE [facility] Start: 08-14-2023 End: 08-14-2023 ambulatory Lorenzo Olson Facility:[facility] Start: 08-14-2023 End: 08-14-2023 ambulatory DO Lorenzo Olson Work Phone: [facility] Work Phone: Start: 08-14-2023 End: 08-14-2023 Patient encounter procedure DO Lorenzo Whitney Work Phone: [facility]-MRI [address] Work Phone: Start: 07-24-2023 Follow-up encounter Deborah cain MD Work Phone: Colorectal Surgery Comment on above: Encounter for follow -up surveillance of rectal cancer (Primary Dx) Start: 07-16-2023 End: 07-16-2023 ambulatory [employer] Other [facility] [employer] Other Start: 07-16-2023 Office outpatient vi sit 25 minutes [employer] 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 (Lab Results; Neuropathy) Start: 06-20-2023 End: 06-20-2023 ambulatory LORENZO OLSON Facility:[facility] Start: 06-20-2023 End: 06-20-2023 ambulatory Lab/Port Juan Carlos Medina Work Phone: Hematology/Oncology Comment on above: Rectal cancer (HCC) Start: 06-19-2023 Telephone encounter Denisha mello RN Work Phone: Hematology/Oncology Comment on above: Care Coordination (L ab Request) Start: 06-18-2023 End: 06-18-2023 ambulatory Valencia Torres Other [facility] [employer] Other Start: 06-18-2023 Office outpatient vi sit 15 minutes Valencia Torres [facility] Start: 06-17-2023 End: 06-27-2023 Pre-admission assessment Corey MCEKE [facility] Start: 06-04-2023 End: 06-05-2023 ambulatory Corey MCKEE Facility:[id number] Start: 05-28-2023 End: 05-28-2023 ambulatory LORENZO OLSON Facility:[facility] Start: 05-28-2023 End: 05-28-2023 Patient encounter procedure Nick Anderson MD Work Phone: [facility] Start: 05-28-2023 End: 05-28-2023 ambulatory Lab/Port [place] Ncarlos Medina Work Phone: Hematology/Oncology Comment on above: Rectal cancer (HCC) Rectal cancer (HCC) (Primary Dx); Neoplasm related pain (acute) (chronic); Rheumatoid arthritis involving multiple sites, unspecified whether rheumatoid factor present (HCC); Acute deep vein thrombosis (DVT) of distal vein of left lower extremity (HCC) Start: 05-23-2023 End: 07-21-2023 ambulatory Bryon Cruz Facility:[facility] Start: 05-22-2023 End: 05-22-2023 ambulatory Valencia Torres Facility:[facility] Start: 05-22-2023 End: 05-22-2023 ambulatory DO Lorenzo Olson Work Phone: [facility] Work Phone: Start: 05-22-2023 End: 05-22-2023 Patient encounter procedure DO Lorenzo Whitney Work Phone: [facility]-MRI [address] [place] Work Phone: Start: 05-17-2023 End: 05-18-2023 ambulatory Bryon Cruz Facility:[facility] Start: 05-14-2023 Telephone encounter Denisha mello RN Work Phone: Hematology/Oncology Comment on above: Care Coordination (O rders ) Start: 05-14-2023 End: 05-14-2023 ambulatory LORENZO OLSON Facility:[facility] Start: 05-07-2023 End: 05-08-2023 ambulatory MD Bryon Cruz Facility:[facility] Start: 05-07-2023 End: 05-07-2023 Pain Management Bryon Cruz [facility] Start: 05-06-2023 Refill Nick Anderson MD Work Phone: [employer] [employer] [facility] Comment on above: Refill Request Start: 05-03-2023 Telephone encounter Deborah cain MD Work Phone: Colorectal Surgery Comment on above: Orders (Flex sig, CE A, MRI, CT) [employer]x Thread Machine Operator - O ther Appointment (Pt call ing to let Chelsie know that 07/09, Saturday would be his best option for colonoscopy. ) Start: 04-29-2023 End: 04-30-2023 ambulatory XXXX NONE Facility:[facility] Start: 04-29-2023 End: 04-29-2023 Patient encounter procedure Cyndee SANCHEZ [facility] Start: 04-18-2023 ambulatory DEBORAH NORMAN Facility:[facility] Start: 04-17-2023 Telephone encounter Denisha mello RN Work Phone: Hematology/Oncology Comment on above: Care Coordination (P otassium Results) Start: 04-16-2023 End: 04-16-2023 ambulatory LORENZO OLSON Facility:[facility] Start: 04-16-2023 End: 04-16-2023 ambulatory Lab/Port Juan Carlospoornima Simon Work Phone: Hematology/Oncology Comment on above: Rectal cancer (HCC) Start: 04-11-2023 Encounter for other specified special examinations Valencia Torres [facility] Start: 04-11-2023 Office outpatient ne w 45 minutes Valencia Torres [facility] Start: 04-11-2023 End: 04-11-2023 ambulatory DO Lorenzo Dailey Whitney Work Phone: [facility] Work Phone: Start: 04-11-2023 End: 04-11-2023 Patient encounter procedure DO Lorenzo Olson Work Phone: [facility]-X[facility] Work Phone: Start: 04-09-2023 ambulatory DEBORAH GOMEZ Facility: [facility] Start: 04-09-2023 End: 04-09-2023 Subsequent hospital visit by physician Deborah Norman MD Work Phone: Procedures Comment on above: Rectal cancer (HCC) [C20] Start: 04-02-2023 End: 04-03-2023 ambulatory Lorenzo Asim OLSON Facility:[facility] Start: 03-26-2023 ambulatory [facility] Provider Paulino pappas Comment on above: Colonoscopy prep ins tructions Start: 03-26-2023 E-mail encounter fro m caregiver [facility] Provider SOLO GOMES [facility] Start: 03-26-2023 Telephone encounter Deborah cain MD Work Phone: Colorectal Surgery Comment on above: Patient Question Care Coordination (M RI Question) Start: 03-21-2023 End: 03-21-2023 ambulatory LORENZO OLSON Facility:[facility] Start: 03-21-2023 End: 03-21-2023 ambulatory Chair Pema Simon Work Phone: Hematology/Oncology Comment on above: Rectal cancer (HCC) (Primary Dx) Start: 03-20-2023 Telephone encounter Santiago CRANE Work Phone: [facility] Comment on above: Results Start: 03-19-2023 End: 03-19-2023 ambulatory LORENZO OLSON Facility:[facility] Start: 03-19-2023 End: 03-19-2023 Patient encounter procedure Nick Anderson MD Work Phone: [facility] Start: 03-19-2023 End: 03-19-2023 ambulatory Lab/Port Juan Carlospoornima Simon Work Phone: Hematology/Oncology Comment on above: Rectal cancer (HCC); Primary hypercoagulable state (HCC); Rheumatoid arthritis involving multiple sites, unspecified whether rheumatoid factor present (HCC) Rectal cancer (HCC) (Primary Dx) Rectal cancer (HCC) (Primary Dx); Primary hypercoagulable state (HCC); Rheumatoid arthritis involving multiple sites, unspecified whether rheumatoid factor present (HCC) Start: 03-18-2023 End: 03-18-2023 Emergency department patient visit [facility] Facility:[facility] Start: 03-18-2023 End: 03-18-2023 Emergency department patient visit [facility] Start: 03-13-2023 End: 03-13-2023 [facility] LORENZO OLSON Facility:[facility] Start: 03-13-2023 End: 03-14-2023 [facility] LORENZO OLSON Facility:[facility] Start: 03-13-2023 End: 03-13-2023 Patient encounter procedure Dania Vásquez MD Work Phone: Radiation Oncology Comment on above: Rectal cancer (HCC) (Primary Dx); Malignant neoplasm of prostate (HCC) Start: 03-07-2023 End: 03-07-2023 ambulatory LORENZO OLSON Facility:[facility] Start: 03-05-2023 End: 03-05-2023 ambulatory Chair Zuhair Medina Work Phone: Hematology/Oncology Comment on above: Rectal cancer (HCC) (Primary Dx) Start: 03-01-2023 Telephone encounter Nick wong MD Work Phone: Hematology/Oncology Comment on above: Lab Orders Start: 02-26-2023 Telephone encounter Samantha cuello [facility] Work Phone: [facility] HB[facility] Comment on above: Medication Assistanc e (Approved for Free Xarelto) Start: 02-21-2023 End: 02-21-2023 ambulatory LORENZO OLSON Facility:[facility] Start: 02-21-2023 End: 02-21-2023 ambulatory Chair 20 Alfred Work Phone: Hematology/Oncology Comment on above: Rectal cancer (HCC) (Primary Dx) Start: 02-19-2023 End: 02-19-2023 [facility] LORENZO OLSON Facility:[facility] Start: 02-19-2023 End: 02-19-2023 Patient encounter procedure Nick Anderson MD Work Phone: [employer] Start: 02-19-2023 End: 02-19-2023 ambulatory Nick Anderson MD Work Phone: Hematology/Oncology Comment on above: Rectal cancer (HCC) (Primary Dx); Acute deep vein thrombosis (DVT) of distal vein of left lower extremity (HCC) Rectal cancer (HCC) (Primary Dx) Rectal cancer (HCC) Start: 02-07-2023 End: 02-07-2023 [facility] LORENZO OLSON Facility:[facility] Start: 02-07-2023 End: 02-07-2023 Patient encounter procedure Deborah Norman MD Work Phone: Colorectal Surgery Comment on above: Rectal cancer (HCC) (Primary Dx); Malignant neoplasm of rectum (HCC) Start: 02-07-2023 End: 02-07-2023 [facility] LORENZO OLSON Facility:[facility] Start: 02-07-2023 End: 02-07-2023 ambulatory Chair 20 Alfred Work Phone: Hematology/Oncology Comment on above: Rectal cancer (HCC) (Primary Dx) Start: 02-05-2023 End: 02-06-2023 [facility] LORENZO OLSON Facility:[facility] Start: 02-04-2023 End: 02-04-2023 [facility] Facility:[facility] Start: 02-04-2023 End: 02-04-2023 Patient encounter procedure Mert Krueger MD Work Phone: Gastroenterology Comment on above: Rectal cancer (HCC) (Primary Dx); Rectal bleeding; Acute deep vein thrombosis (DVT) of distal vein of left lower extremity (HCC); Family history of pancreatic cancer; Family history of primary liver cancer Start: 01-24-2023 End: 01-24-2023 ambulatory LORENZO OLSON Facility:[facility] Start: 01-24-2023 End: 01-24-2023 ambulatory Chair Pema Simon Work Phone: Hematology/Oncology Comment on above: Rectal cancer (HCC) (Primary Dx) Start: 01-23-2023 Refill Celeste gaona [facility] Work Phone: [facility] Comment on above: Refill Request Care Coordination (D VT; Eliquis) Start: 01-22-2023 End: 01-23-2023 ambulatory Ryan Hollis Facility:[facility] Start: 01-22-2023 Telephone encounter Denisha mello RN Work Phone: Hematology/Oncology Comment on above: Care Coordination (U S Order) Start: 01-22-2023 End: 01-23-[address] Work Phone: [facility] Start: 01-22-2023 End: 01-22-[address] Work Phone: Nutrition Therapy Comment on above: Nutrition Counseling Start: 01-22-2023 End: 01-22-2023 Patient encounter procedure Santiago Kong [facility] Start: 01-22-2023 End: 01-22-2023 ambulatory Lab/Port [facility] Carlos Simon Work Phone: Hematology/Oncology Comment on above: Rectal cancer (HCC) (Primary Dx) Rectal cancer (HCC) (Primary Dx); Leg swelling; Left ankle swelling Start: 01-18-2023 Telephone encounter Nick wong MD Work Phone: Hematology/Oncology Comment on above: Lab Orders Start: 01-14-2023 Telephone encounter Denisha mello RN Work Phone: Hematology/Oncology Comment on above: Latex Thread Machine Operator - O ther (Rectal Bleeding) Start: 01-10-2023 End: 01-11-2023 ambulatory REMARKETING REP Cyndee Tim GARCIADania Facility:[facility] Start: 01-10-2023 End: 01-10-2023 Patient encounter procedure Cyndee SANCHEZ [facility] Start: 01-10-2023 End: 01-10-2023 ambulatory LORENZO OLSON Facility:[facility] Start: 01-10-2023 End: 01-10-2023 ambulatory Chair 20 Alfred Work Phone: Hematology/Oncology Comment on above: Rectal cancer (HCC) (Primary Dx) Start: 01-08-2023 End: 01-08-[address] Work Phone: Nutrition Therapy Comment on above: Nutrition Assessment Start: 01-08-2023 End: 01-08-2023 Patient encounter procedure Nick Anderson MD Work Phone: [facility] Start: 01-08-2023 End: 01-08-2023 ambulatory Lab/Port Juan Carlos Alfred Work Phone: Hematology/Oncology Comment on above: Rectal cancer (HCC) Rectal cancer (HCC) (Primary Dx) Start: 12-28-2022 Telephone encounter Lucy Goetz RN Work Phone: Hematology/Oncology Comment on above: Care Coordination (C 1D1 treatment follow up call) Start: 12-27-2022 End: 12-28-2022 ambulatory LORENZO OLSON Facility:[facility] Start: 12-27-2022 End: 12-27-2022 ambulatory Chair 20 Alfred Work Phone: Hematology/Oncology Comment on above: Rectal cancer (HCC) (Primary Dx) Start: 12-25-2022 End: 12-26-2022 ambulatory Lab/Port Juan Carlos Alfred Work Phone: Hematology/Oncology Comment on above: Rectal cancer (HCC) Rectal cancer (HCC) (Primary Dx) Start: 12-20-2022 End: 12-20-2022 ambulatory Denisha Duarte RN Work Phone: Hematology/Oncology Comment on above: Chemotherapy Treatme nt (Oxaliplatin, Leucovorin, 5FU) Start: 12-20-2022 Telephone encounter Celeste Bray [facility] Work Phone: Hematology/Oncology Comment on above: Erroneous encounter- disregard Start: 12-19-2022 End: 12-19-2022 [facility] Facility:[facility] Start: 12-19-2022 Telephone encounter Milton Ward RN [facility] Radiology Procedure Comment on above: Radiology Pre Proced ure Instructions Start: 12-18-2022 Patient encounter status Nick Anderson MD Work Phone: Hematology/Oncology Start: 12-18-2022 Telephone encounter Nick wong MD Work Phone: Hematology/Oncology Comment on above: Lab Orders Start: 12-17-2022 End: 12-17-2022 [facility] Facility:[facility] Start: 12-17-2022 End: 12-17-2022 ambulatory Nick Anderson MD Work Phone: Hematology/Oncology Comment on above: Rectal cancer (HCC) (Primary Dx); Lung nodules Start: 12-17-2022 End: 12-17-2022 Patient encounter procedure Nick Anderson MD Work Phone: [place] Start: 12-17-2022 Telephone encounter [facility] MD [facility] Comment on above: Referral Information (Port placement) Start: 12-10-2022 End: 12-10-2022 [facility] Facility:[facility] Start: 12-10-2022 End: 12-10-2022 [facility] Facility:[facility] Start: 11-20-2022 Telephone encounter Katerina Hargrove RN Hematology/Oncology Comment on above: Results Start: 11-19-2022 End: 11-19-2022 ambulatory LORENZO OLSON Facility:[facility] Start: 11-19-2022 End: 11-19-2022 ambulatory Nick Anderson MD Work Phone: Hematology/Oncology Comment on above: Rectal cancer (HCC) (Primary Dx); Lung nodules; Cancer related pain Start: 11-19-2022 End: 11-19-2022 Patient encounter procedure Dania Vásquez MD Work Phone: Radiation Oncology Comment on above: Rectal cancer (HCC) (Primary Dx) Start: 11-19-2022 Radiation Oncology Note Dania Vásquez MD Work Phone: Radiation Oncology Comment on above: Completion Note Start: 11-16-2022 End: 11-16-2022 ambulatory LORENZO OLSON Facility:[facility] Start: 11-15-2022 End: 11-15-2022 Patient encounter procedure Dania Vásquez MD Work Phone: Radiation Oncology Comment on above: Rectal cancer (HCC) (Primary Dx) Start: 11-15-2022 End: 11-15-2022 ambulatory LORENZO OLSON Facility:[facility] Start: 11-14-2022 End: 11-14-2022 ambulatory LORENZO OLSON Facility:[facility] Start: 11-13-2022 End: 11-13-2022 [facility] LORENZO OLSON Facility:[facility] Start: 11-12-2022 End: 11-12-2022 ambulatory LORENZO OLSON Facility:[facility] Start: 11-12-2022 End: 11-12-2022 Patient encounter procedure Dania Vásquez MD Work Phone: Radiation Oncology Comment on above: Rectal cancer (HCC) (Primary Dx) Start: 11-09-2022 End: 11-09-2022 ambulatory LORENZO OLSON Facility:[facility] Start: 11-08-2022 End: 11-08-2022 ambulatory LORENZO OLSON Facility:[facility] Start: 11-08-2022 End: 11-08-2022 Patient encounter procedure Lab/[place] Work Phone: Radiation Oncology Comment on above: Rectal cancer (HCC) Start: 11-07-2022 End: 11-07-2022 ambulatory LORENZO OLSON Facility:[facility] Start: 11-07-2022 Telephone encounter Ryan eaton APRN.REMARKETING REP Work Phone: Radiation Oncology Comment on above: Pain Orders Start: 11-05-2022 End: 11-05-2022 Patient encounter procedure Dania Vásquez MD Work Phone: Radiation Oncology Comment on above: Rectal cancer (HCC) (Primary Dx) Start: 10-29-2022 End: 10-29-2022 ambulatory Ryan Hollis APRN.REMARKETING REP Work Phone: Hematology/Oncology Comment on above: Rectal cancer (HCC) (Primary Dx); Abnormal PET scan of lung; Pulmonary embolus with infarction (HCC); Rheumatoid arthritis involving multiple sites, unspecified whether rheumatoid factor present (HCC) Start: 10-29-2022 End: 10-29-2022 Patient encounter procedure Ryan Hollis APRN.REMARKETING REP Work Phone: [facility] Comment on above: Rectal cancer (HCC) (Primary Dx) Start: 10-24-2022 Refill Oliva Osman [facility] arm Services Start: 10-24-2022 End: 10-24-2022 Patient encounter procedure ASHLEY TRINIDAD [facility] Start: 10-23-2022 End: 10-23-2022 Patient encounter procedure Dania Vásquez MD Work Phone: Radiation Oncology Comment on above: Rectal adenocarcinom a (HCC) Start: 10-19-2022 End: 10-19-[address] Work Phone: [facility] Start: 10-19-2022 End: 10-19-20[address] Owen RD Work Phone: Nutrition Therapy Comment on above: Nutrition Counseling Start: 10-16-2022 End: 10-16-2022 Patient encounter procedure Dania Vásquez MD Work Phone: Radiation Oncology Comment on above: Rectal adenocarcinom a (HCC) (Primary Dx) Start: 10-11-2022 End: 10-11-2022 ambulatory Ryan Hollis APRN.REMARKETING REP Work Phone: Hematology/Oncology Comment on above: Rectal cancer (HCC) (Primary Dx); Pulmonary embolus with infarction (HCC) Start: 10-11-2022 End: 10-11-2022 Patient encounter procedure Ryan Wild [employer] SUPERVISOR.REMARKETING REP Work Phone: [facility] Start: 10-11-2022 Telephone encounter Denisha Duarte Hematology/Oncology Comment on above: Care Coordination (O ral Anti-Cancer Agent Follow Up) Start: 10-10-2022 End: 10-10-2022 [facility] Facility:[facility] Start: 10-09-2022 Telephone encounter Hang garay MD Work Phone: [facility] Endoscopy - ENDO Comment on above: Appointment Start: 10-08-2022 End: 10-08-2022 [facility] Facility:[facility] Start: 10-08-2022 End: 10-08-2022 ambulatory Hang Maier MD Work Phone: Pulmonology Comment on above: Adenopathy (Primary Dx); Rectal adenocarcinoma (HCC); Rheumatoid arthritis involving multiple sites, unspecified whether rheumatoid factor present (HCC) Start: 10-08-2022 End: 10-08-2022 Telemedicine consultation with patient Hang Maier MD Work Phone: [facility] Start: 10-08-2022 End: 10-08-2022 Patient encounter procedure Dania Vásquez MD Work Phone: Radiation Oncology Comment on above: Rectal adenocarcinom a (HCC) (Primary Dx) Start: 10-08-2022 End: 10-08-2022 Nursing evaluation of patient and report Inocente Delatorre Work Phone: Hematology/Oncology Comment on above: Adenopathy Start: 2022 Orders Only Hang cain MD Work Phone: Pulmonary Medicine Comment on above: Adenopathy (Primary Dx) Bronchoscopy Schedul ing Care Coordination (M edication Question) Care Coordination (B ronchoscopy) Start: 10-03-2022 End: 10-03-2022 Patient encounter procedure Cyndee SANCHEZ [facility] Start: 10-03-2022 End: 10-03-2022 Patient encounter procedure Cyndee SANCHEZ [facility] Start: 10-02-2022 End: 10-02-2022 Patient encounter procedure Nick Anderson MD Work Phone: [facility] Start: 10-02-2022 End: 10-02-2022 ambulatory Denisha Duarte RN Work Phone: Hematology/Oncology Comment on above: Oral Anti-cancer Age nt Education (Capecitabine) Rectal cancer (HCC) (Primary Dx); Abnormal PET scan of lung Start: 10-02-2022 Telephone encounter Denisha Duarte Hematology/Oncology Comment on above: Care Coordination (M edication Start Date - Capecitabine) Start: 10-01-2022 End: 10-01-2022 ambulatory Lorenzo Olson Facility:[facility] Start: 10-01-2022 End: 10-01-2022 ambulatory DO Lorenzo Olson Work Phone: [facility] Work Phone: Start: 10-01-2022 End: 10-01-2022 Patient encounter procedure DO Lorenzo Olson Work Phone: [facility] [place] Start: 10-01-2022 Telephone encounter Denisha Duarte Hematology/Oncology Comment on above: Care Coordination (A ntiemetics) Start: 09-28-2022 Telephone encounter Dania Vásquez MD Work Phone: Radiation Oncology Comment on above: Cough Start: 09-26-2022 Telephone encounter Dania Vásquez MD Work Phone: Radiation Oncology Comment on above: Appointment Social Work Services Start: 09-25-2022 End: 09-25-2022 ambulatory Hoa Giovannakeysha MCDANIEL Work Phone: [facility] Start: 09-25-2022 End: 09-25-2022 Nutrition therapy Hoa Kakeysha MCDANIEL Work Phone: Nutrition Therapy Comment on above: Nutrition Assessment Start: 09-25-2022 Telephone encounter Denisha Duarte Hematology/Oncology Comment on above: Care Coordination (T reatment Planning) Start: 09-24-2022 End: 09-24-2022 Patient encounter procedure Dania Vásquez MD Work Phone: Radiation Oncology Comment on above: Rectal adenocarcinom a (HCC) (Primary Dx) Start: 09-24-2022 Radiation Oncology Note G Ángel Vásquez MD Work Phone: Radiation Oncology Comment on above: Treatment Planning Start: 09-20-2022 ambulatory Sonam Horowitz RN Radiati on Oncology Comment on above: Patient Education Start: 09-20-2022 Telephone encounter [facility] Comment on above: Future Appointment Start: 09-20-2022 End: 09-20-2022 Patient encounter procedure Dania Vásquez MD Work Phone: Radiation Oncology Comment on above: Rectal adenocarcinom a (HCC) (Primary Dx) Start: 09-18-2022 Telephone encounter Nick wong MD Work Phone: [facility] Comment on above: Call Back 48 Hours Start: 09-17-2022 End: 09-17-2022 ambulatory Nick Anderson MD Work Phone: Hematology/Oncology Comment on above: Rectal cancer (HCC) (Primary Dx); Rheumatoid arthritis involving multiple sites, unspecified whether rheumatoid factor present (HCC) Start: 09-17-2022 End: 09-17-2022 Patient encounter procedure Nick Anderson MD Work Phone: [place] Start: 11-28-2022 Chart abstracting Nick del cid MD Work Phone: Hematology/Oncology Start: 09-11-2022 End: 09-12-2022 ambulatory [facility] Start: 09-06-2022 Telephone encounter Minalirlanda Cain Hematology/Oncology Comment on above: Appointment Start: 09-05-2022 End: 09-05-2022 ambulatory [facility] Start: 08-22-2022 End: 08-22-2022 ambulatory [facility] Start: 08-20-2022 End: 08-20-2022 Patient encounter procedure Mervat SLAUGHTER [facility] Start: 08-14-2022 End: 08-14-2022 Patient encounter procedure Mervat SLAUGHTER [facility] [place] Start: 08-06-2022 End: 02-14-2023 Recurring JONAH CONNELL [facility] Start: 05-31-2022 End: 05-31-2022 Lab Drop off VALERIE ROBERTS [facility] Start: 05-31-2022 End: 05-31-2022 Patient encounter procedure VALERIE ROBERTS [facility] [place] Start: 04-30-2022 End: 07-29-2022 Recurring JONAH CONNELL [facility] Start: 04-03-2022 End: 04-03-2022 Patient encounter procedure Cyndee SANCHEZ [facility] Start: 11-07-2021 End: 02-05-2022 Patient encounter procedure Lorenzo OLSON [facility] Start: 04-04-2021 Encounter for preprocedural laboratory examination [facility] Start: 04-03-2021 End: 04-03-[address] LORENZO OLSON Facility:[facility] Start: 03-31-2021 Encounter for preprocedural cardiovascular examination [facility] Start: 03-31-2021 Encounter for preprocedural laboratory examination [facility] Start: 03-28-2021 End: 03-29-[address] LORENZO OLSON Facility:[facility] Start: 03-28-2021 End: 03-29-2021 Encounter for preprocedural laboratory examination DR LORENZO OLSON Facility:[facility] Start: 03-23-2021 End: 03-24-2021 ambulatory SONAM ZAMBRANO Facility:[facility] Start: 03-23-2021 End: 03-24-2021 Encounter for preprocedural cardiovascular examination SONAM ZAMBRANO Facility:[facility] Start: 02-02-2021 End: 02-03-2021 ambulatory [facility] Facility:[facility] Procedures Date Procedure Procedure Detail Performing Clinician Start: 08-14-2023 MR lumbar spine wo con DO Lorenzo Olson Work Phone: Start: 07-09-2023 Sigmoidoscopy flx dx w/collj spec br/wa if pfrmd Deborah Norman MD Work Phone: Start: 06-20-2023 Blood count complete auto&auto difrntl wbc Marie Key PA-C Work Phone: Start: 05-28-2023 Blood count complete auto&auto difrntl wbc Nick Anderson MD Work Phone: Start: 05-22-2023 MRI of cervical spin e with contrast DO Lorenzo Olson Work Phone: Start: 04-16-2023 Blood count complete auto&auto difrntl wbc Nick Anderson MD Work Phone: Start: 04-11-2023 Plain x-ray of pelvi s and lower extremity DO Lorenzo Olson Work Phone: Start: 04-11-2023 X-ray of cervical spine DO Lorenzo Olson Work Phone: Start: 04-09-2023 Level iv surg pathol ogy gross&microscopic exam Deborah Norman MD Work Phone: Start: 04-09-2023 Colonoscopy flx dx w /collj spec when pfrmd Deborah Norman MD Work Phone: Start: 04-09-2023 Colonoscopy Lab/[place] Work Phone: Start: 03-19-2023 Blood count complete auto&auto difrntl wbc Ryan Hollis [employer] SUPERVISOR.REMARKETING REP Work Phone: Start: 02-19-2023 Blood count complete auto&auto difrntl wbc Nick Anderson MD Work Phone: Start: 01-08-2023 Basic metabolic pane l calcium total Nick Anderson MD Work Phone: Start: 12-25-2022 Blood count complete auto&auto difrntl wbc Nick Anderson MD Work Phone: Start: 12-17-2022 Blood count complete auto&auto difrntl wbc Nick Anderson MD Work Phone: Start: 11-08-2022 Blood count complete auto&auto difrntl wbc G Saeed Vásquez MD Work Phone: Start: 08-20-2022 Sigmoidoscopy Mervat BANUELOS Start: 02-24-2019 Cataract extraction and insertion of intraocular lens Lorenzo OLSON Comment on above: left Start: 02-12-2019 Cataract extraction and insertion of intraocular lens Lorenzo OLSON Start: 01-01-2018 Laparoscopic repair of inguinal hernia Lorenzo OLSON Comment on above: ROBOTIC ASSISTED RIG HT INGUINAL HERNIA REPAIR WITH MESH Start: 05-23-2016 Cystoscopy Lorenzo HAGER Start: 03-22-2016 Extracorporeal shock wave lithotripsy of calculus of kidney Lorenzo WHITNEY Comment on above: 01/05/2016, 03/08/20 16 Start: 12-22-2015 Extracorporeal shock wave lithotripsy of calculus of kidney Lorenzo OLSON Comment on above: 12/15/2015 Start: 09-28-2015 Cystoscopy Lorenzo HAGER Cervical arthrodesis Lorenzo WHITNEY Cervical arthrodesis Mervat SLAUGHTER Colonoscopy Lorenzo WHITNEY Hammer toe operation Lorenzo OLSON Hemorrhoidectomy Mervat Dumont Plan of Treatment Date Care Activity Detail Author Start: 07-09-2028 Colorectal Cancer Screening Colorectal Cancer Screening [facility] Start: 07-09-2028 Screening for malign ant neoplasm of colon [facility] Start: 07-09-2028 SIGMOIDOSCOPY SIGMOIDOSCOPY [facility] Start: 08-27-2026 [facility] Start: 06-20-2026 DIABETES SCREEN DIABETES SCREEN [facility] Start: 06-20-2026 [facility] Start: 05-28-2026 DIABETES SCREEN DIABETES SCREEN [facility] Start: 05-14-2026 DIABETES SCREEN DIABETES SCREEN [facility] Start: 04-16-2026 DIABETES SCREEN DIABETES SCREEN [facility] Start: 03-19-2026 DIABETES SCREEN DIABETES SCREEN [facility] Start: 03-05-2026 DIABETES SCREEN DIABETES SCREEN [facility] Start: 02-19-2026 DIABETES SCREEN DIABETES SCREEN [facility] Start: 02-05-2026 DIABETES SCREEN DIABETES SCREEN [facility] Start: 01-22-2026 DIABETES SCREEN DIABETES SCREEN [facility] Start: 01-08-2026 DIABETES SCREEN DIABETES SCREEN [facility] Start: 12-25-2025 DIABETES SCREEN DIABETES SCREEN [facility] Start: 12-17-2025 DIABETES SCREEN DIABETES SCREEN [facility] Start: 11-19-2025 DIABETES SCREEN DIABETES SCREEN [facility] Start: 10-29-2025 DIABETES SCREEN DIABETES SCREEN [facility] Start: 10-11-2025 DIABETES SCREEN DIABETES SCREEN [facility] Start: 10-02-2025 DIABETES SCREEN DIABETES SCREEN [facility] Start: 09-17-2025 DIABETES SCREEN DIABETES SCREEN [facility] Start: 04-09-2024 Colonoscopy COLONOSCOPY [facility] Start: 04-09-2024 COLORECTAL CANCER SCREENING COLORECTAL CANCER SCREENING [facility] Start: 04-09-2024 Screening for malign ant neoplasm of colon Colonoscopy [facility] Start: 01-03-2024 ambulatory Ambulatory Facility:[facility] Start: 09-04-2023 Covid-19 Vaccine () Covid-19 Vaccine () [facility] Start: 08-24-2023 End: 10-24-2023 Carcinoembryonic Ag [Mass/volume] in Serum or Plasma CEA BLD Lab Routine Encounter for follow-up surveillance of rectal cancer Expected: 08/24/2023 (Approximate), Expires: 10/24/2023 [facility] Work Phone: Comment on above: Expected: 08/24/2023 (Approximate), Expires: 10/24/2023 Start: 08-03-2023 End: 10-03-2023 Carcinoembryonic Ag [Mass/volume] in Serum or Plasma CEA BLD Lab Routine Encounter for follow-up surveillance of rectal cancer Expected: 08/03/2023, Expires: 10/03/2023 [facility] Work Phone: Comment on above: Expected: 08/03/2023 , Expires: 10/03/2023 Start: 06-21-2023 Covid-19 Vaccine () Covid-19 Vaccine () [facility] Start: 06-21-2023 Influenza vaccination C [facility] Start: 06-20-2023 End: 08-20-2023 Carcinoembryonic Ag [Mass/volume] in Serum or Plasma [facility] Work Phone: Comment on above: Expected: 06/20/2023 , Expires: 08/20/2023 Start: 06-20-2023 End: 08-20-2023 CBC W Auto Differential panel - Blood CBC + DIFF Lab Routine Rectal cancer (HCC) Expected: 06/20/2023, Expires: 08/20/2023 [facility] Work Phone: Comment on above: Expected: 06/20/2023 , Expires: 08/20/2023 Start: 06-20-2023 End: 08-20-2023 Comprehensive metabolic 2000 panel - Serum or Plasma COMP METABOLIC PANEL Lab Routine Rectal cancer (HCC) Expected: 06/20/2023, Expires: 08/20/2023 [facility] Work Phone: Comment on above: Expected: 06/20/2023 , Expires: 08/20/2023 Start: 06-20-2023 End: 08-20-2023 Magnesium [Mass/volume] in Serum or Plasma MAGNESIUM BLD Lab Routine Rectal cancer (HCC) Expected: 06/20/2023, Expires: 08/20/2023 [facility] Work Phone: Comment on above: Expected: 06/20/2023 , Expires: 08/20/2023 Start: 05-22-2023 MR Cervical spine WO and W contrast IV [facility] Start: 05-22-2023 MRI of cervical spin e with contrast MR cervical spine wo/w con [facility] Start: 03-05-2023 End: 05-05-2023 Carcinoembryonic Ag [Mass/volume] in Serum or Plasma CEA BLD Lab Routine Rectal cancer (HCC) Expected: 03/05/2023, Expires: 05/05/2023 [facility] Work Phone: Comment on above: Expected: 03/05/2023 , Expires: 05/05/2023 Start: 03-05-2023 End: 05-05-2023 CBC W Auto Differential panel - Blood CBC + DIFF Lab Routine Rectal cancer (HCC) Expected: 03/05/2023, Expires: 05/05/2023 [facility] Work Phone: Comment on above: Expected: 03/05/2023 , Expires: 05/05/2023 Start: 03-05-2023 End: 05-05-2023 Comprehensive metabolic 2000 panel - Serum or Plasma COMP METABOLIC PANEL Lab Routine Rectal cancer (HCC) Expected: 03/05/2023, Expires: 05/05/2023 [facility] Work Phone: Comment on above: Expected: 03/05/2023 , Expires: 05/05/2023 Start: 02-07-2023 End: 04-09-2023 CBC W Auto Differential panel - Blood CBC + DIFF Lab Routine Leg swelling Rectal cancer (HCC) Left ankle swelling Expected: 02/07/2023, Expires: 04/09/2023 [facility] Work Phone: Comment on above: Expected: 02/07/2023 , Expires: 04/09/2023 Start: 02-07-2023 End: 04-09-2023 Comprehensive metabolic 2000 panel - Serum or Plasma COMP METABOLIC PANEL Lab Routine Leg swelling Rectal cancer (HCC) Left ankle swelling Expected: 02/07/2023, Expires: 04/09/2023 [facility] Work Phone: Comment on above: Expected: 02/07/2023 , Expires: 04/09/2023 Start: 01-18-2023 End: 03-20-2023 Carcinoembryonic Ag [Mass/volume] in Serum or Plasma CEA BLD Lab Routine Rectal cancer (HCC) Expected: 01/18/2023, Expires: 03/20/2023 [facility] Work Phone: Comment on above: Expected: 01/18/2023 , Expires: 03/20/2023 Start: 01-18-2023 End: 03-20-2023 CBC W Auto Differential panel - Blood CBC + DIFF Lab Routine Rectal cancer (HCC) Expected: 01/18/2023, Expires: 03/20/2023 [facility] Work Phone: Comment on above: Expected: 01/18/2023 , Expires: 03/20/2023 Start: 01-18-2023 End: 03-20-2023 Comprehensive metabolic 2000 panel - Serum or Plasma COMP METABOLIC PANEL Lab Routine Rectal cancer (HCC) Expected: 01/18/2023, Expires: 03/20/2023 [facility] Work Phone: Comment on above: Expected: 01/18/2023 , Expires: 03/20/2023 Start: 12-25-2022 End: 02-24-2023 CBC W Auto Differential panel - Blood CBC + DIFF Lab Routine Rectal cancer (HCC) Expected: 12/25/2022, Expires: 02/24/2023 [facility] Work Phone: Comment on above: Expected: 12/25/2022 , Expires: 02/24/2023 Start: 12-25-2022 End: 02-24-2023 Comprehensive metabolic 2000 panel - Serum or Plasma COMP METABOLIC PANEL Lab Routine Rectal cancer (HCC) Expected: 12/25/2022, Expires: 02/24/2023 [facility] Work Phone: Comment on above: Expected: 12/25/2022 , Expires: 02/24/2023 Start: 11-21-2022 End: 01-21-2023 Carcinoembryonic Ag [Mass/volume] in Serum or Plasma CEA BLD Lab Routine Rectal cancer (HCC) Abnormal PET scan of lung Pulmonary embolus with infarction (HCC) Rheumatoid arthritis involving multiple sites, unspecified whether rheumatoid factor present (HCC) Expected: 11/21/2022, Expires: 01/21/2023 [facility] Work Phone: Comment on above: Expected: 11/21/2022 , Expires: 01/21/2023 Start: 11-21-2022 End: 01-21-2023 CBC W Auto Differential panel - Blood CBC + DIFF Lab Routine Rectal cancer (HCC) Abnormal PET scan of lung Pulmonary embolus with infarction (HCC) Rheumatoid arthritis involving multiple sites, unspecified whether rheumatoid factor present (HCC) Expected: 11/21/2022, Expires: 01/21/2023 [facility] Work Phone: Comment on above: Expected: 11/21/2022 , Expires: 01/21/2023 Start: 11-21-2022 End: 01-21-2023 Comprehensive metabolic 2000 panel - Serum or Plasma COMP METABOLIC PANEL Lab Routine Rectal cancer (HCC) Abnormal PET scan of lung Pulmonary embolus with infarction (HCC) Rheumatoid arthritis involving multiple sites, unspecified whether rheumatoid factor present (HCC) Expected: 11/21/2022, Expires: 01/21/2023 [facility] Work Phone: Comment on above: Expected: 11/21/2022 , Expires: 01/21/2023 Start: 11-01-2022 End: 01-01-2023 Carcinoembryonic Ag [Mass/volume] in Serum or Plasma CEA BLD Lab Routine Pulmonary embolus with infarction (HCC) Rectal cancer (HCC) Expected: 11/01/2022, Expires: 01/01/2023 [facility] Work Phone: Comment on above: Expected: 11/01/2022 , Expires: 01/01/2023 Start: 11-01-2022 End: 01-01-2023 CBC W Auto Differential panel - Blood CBC + DIFF Lab Routine Pulmonary embolus with infarction (HCC) Rectal cancer (HCC) Expected: 11/01/2022, Expires: 01/01/2023 [facility] Work Phone: Comment on above: Expected: 11/01/2022 , Expires: 01/01/2023 Start: 11-01-2022 End: 01-01-2023 Comprehensive metabolic 2000 panel - Serum or Plasma COMP METABOLIC PANEL Lab Routine Pulmonary embolus with infarction (HCC) Rectal cancer (HCC) Expected: 11/01/2022, Expires: 01/01/2023 [facility] Work Phone: Comment on above: Expected: 11/01/2022 , Expires: 01/01/2023 Start: 10-21-2022 ADVANCE DIRECTIVE DISCUSSION ADVANCE DIRECTIVE DISCUSSION [facility] Start: 10-21-2022 DEPRESSION ASSESSMENT DEPRESSION ASS ESSMENT [facility] Start: 10-01-2022 MR Abdomen WO and W contrast IV [facility] Start: 10-01-2022 MRI of abdomen with contrast MR abdomen wo/w con [facility] Start: 09-17-2022 End: 11-17-2022 Carcinoembryonic Ag [Mass/volume] in Serum or Plasma [facility] Work Phone: Comment on above: Expected: 09/17/2022 , Expires: 11/17/2022 Start: 09-17-2022 End: 11-17-2022 CBC W Auto Differential panel - Blood CBC + DIFF Lab Routine Rectal cancer (HCC) Expected: 09/17/2022, Expires: 11/17/2022 [facility] Work Phone: Comment on above: Expected: 09/17/2022 , Expires: 11/17/2022 Start: 09-17-2022 End: 11-17-2022 Comprehensive metabolic 2000 panel - Serum or Plasma COMP METABOLIC PANEL Lab Routine Rectal cancer (HCC) Expected: 09/17/2022, Expires: 11/17/2022 [facility] Work Phone: Comment on above: Expected: 09/17/2022 , Expires: 11/17/2022 Start: 06-21-2022 Influenza vaccination INFLUENZA (#1) [facility] Start: 11-15-2021 COVID-19 VACCINE (4 - Booster) COVID-19 VACCINE (4 - Booster) [facility] Start: 11-15-2021 COVID-19 VACCINE (6 - Booster) COVID-19 VACCINE (6 - Booster) [facility] Start: 11-15-2021 COVID-19 VACCINE (6 - Mixed Product risk series) COVID-19 VACCINE (6 - Mixed Product risk series) [facility] [facility] [place] Start: 10-21-2021 ADVANCE DIRECTIVE DISCUSSION ADVANCE DIRECTIVE DISCUSSION [facility] [place] Start: 10-21-2021 DEPRESSION ASSESSMENT DEPRESSION ASS ESSMENT [facility] [place] Start: 08-04-2021 DIABETES SCREEN DIABETES SCREEN [facility] Start: 02-17-2021 COVID-19 VACCINE (3 - Booster for Pfizer series) COVID-19 VACCINE (3 - Booster for Pfizer series) [facility] [place] Start: 11-19-2020 SHINGRIX VACCINE (2 of 2) NICOLAS GRIX VACCINE (2 of 2) [facility] [place] Start: 2017 PNEUMOCOCCAL: 65+ (1 - PCV) PNEUMOCOCCAL: 65+ (1 - PCV) [facility] [place] Start: 2012 RSV Vaccine (1 - 1-d ose 60+ series) RSV Vaccine (1 - 1-dose 60+ series) [facility] [place] Start: 2002 SHINGRIX VACCINE (1 of 2) NICOLAS GRIX VACCINE (1 of 2) [facility] [place] Start: 1997 COLOGUARD (FIT-DNA) COLOGUARD (FIT-D NA) [facility] [place] Start: 1997 Colonoscopy COLONOSCOPY [facility] [place] Start: 1997 COLORECTAL CANCER SCREENING COLORECTAL CANCER SCREENING [facility] [place] Start: [address] COLONOGRAPHY [facility] Start: 1997 FECAL OCCULT BLOOD FECAL OCCULT BLOO D [facility] [place] Start: 1997 Screening for malign ant neoplasm of colon [facility] [place] Start: 1997 SIGMOIDOSCOPY SIGMOIDOSCOPY [facility] Start: 1987 Lipid 1996 panel - S regina or Plasma Lipid Screening [facility] [place] Start: 1987 Lipid panel Lipid Screening [facility] Start: 1987 LIPID SCREEN LIPID SCREEN [facility] [place] Start: 1971 Urine microalbumin profile [facility] [place] Start: 1970 HEPATITIS C SCREENING HEPATITIS C [facility] Start: 1970 Hepatitis C screening Hepatitis C [facility] Carcinoembryonic Ag [Mass/volume] in Serum or Plasma CEA BLD Lab Routine Rectal cancer (HCC) Primary hypercoagulable state (HCC) Rheumatoid arthritis involving multiple sites, unspecified whether rheumatoid factor present (HCC) 03/19/2023 8:23 AM T [facility] Work Phone: Carcinoembryonic Ag [Mass/volume] in Serum or Plasma CEA BLD Lab Routine Rectal cancer (HCC) 04/16/2023 8:53 AM T [facility] Work Phone: Carcinoembryonic Ag [Mass/volume] in Serum or Plasma CEA BLD Lab Routine Rectal cancer (HCC) 05/28/2023 9:15 AM EDT [facility] Work Phone: End: 10-09-2024 Carcinoembryonic Ag [Mass/volume] in Serum or Plasma CEA BLD Lab Routine Encounter for follow-up surveillance of rectal cancer Every 3 months for 4 Occurrences starting 10/10/2023 until 10/09/2024 [facility] Work Phone: Comment on above: Every 3 months for 4 Occurrences starting 10/10/2023 until 10/09/2024 End: 12-18-2022 CBC W Auto Differential panel - Blood CBC + DIFF Lab Routine Rectal cancer (HCC) Once per week for 6 Occurrences starting 11/07/2022 until 12/18/2022 [facility] Work Phone: Comment on above: Once per week for 6 Occurrences starting 11/07/2022 until 12/18/2022 End: 02-08-2024 COLONOSCOPY DIAGNOSTIC COLONOSCOPY DIAGNOSTIC Endoscopy Routine Rectal cancer (HCC) 1 Occurrences starting 02/07/2023 until 02/08/2024 [facility] Work Phone: Comment on above: 1 Occurrences starti ng 02/07/2023 until 02/08/2024 End: 12-19-2023 Ct abdomen & pelvis w/contrast material CT ABD/PEL W IVCON Radiology Routine Lung nodules Rectal cancer (HCC) 1 Occurrences starting 11/19/2022 until 12/19/2023 [facility] Work Phone: Comment on above: 1 Occurrences starti ng 11/19/2022 until 12/19/2023 End: 06-01-2024 Ct abdomen w/contrast material CT ABDOMEN W IVCON Radiology Routine Malignant neoplasm of rectum (HCC) 1 Occurrences starting 05/03/2023 until 06/01/2024 [facility] Work Phone: Comment on above: 1 Occurrences starti ng 05/03/2023 until 06/01/2024 End: 07-24-2024 Ct abdomen w/contrast material CT ABDOMEN W IVCON Radiology Routine Malignant neoplasm of rectum (HCC) 1 Occurrences starting 06/25/2023 until 07/24/2024 [facility] Work Phone: Comment on above: 1 Occurrences starti ng 06/25/2023 until 07/24/2024 End: 12-19-2023 CT CHEST W IVCON CT CHEST W IVCON Radiology Routine Lung nodules 1 Occurrences starting 11/19/2022 until 12/19/2023 [facility] Work Phone: Comment on above: 1 Occurrences starti ng 11/19/2022 until 12/19/2023 End: 06-01-2024 CT CHEST W IVCON CT CHEST W IVCON Radiology Routine Malignant neoplasm of rectum (HCC) 1 Occurrences starting 05/03/2023 until 06/01/2024 [facility] Work Phone: Comment on above: 1 Occurrences starti ng 05/03/2023 until 06/01/2024 End: 07-24-2024 CT CHEST W IVCON CT CHEST W IVCON Radiology Routine Malignant neoplasm of rectum (HCC) 1 Occurrences starting 06/25/2023 until 07/24/2024 [facility] Work Phone: Comment on above: 1 Occurrences starti ng 06/25/2023 until 07/24/2024 CT SIM PLANNING RADI ATION ONCOLOGY CT SIM PLANNING RADIATION ONCOLOGY Radiology Routine Rectal adenocarcinoma (HCC) Ordered: 09/24/2022 [facility] Work Phone: Comment on above: Ordered: 09/24/2022 End: 2023 ECG COMPLETE ECG COMPLETE ECG Routine Adenopathy 1 Occurrences starting 2022 until 2023 [facility] Work Phone: Comment on above: 1 Occurrences starti ng 2022 until 2023 IR PORTOCATH PLACEMENT IR PORTOC ATH PLACEMENT Radiology Routine Rectal cancer (HCC) Ordered: 12/17/2022 [facility] Work Phone: Comment on above: Ordered: 12/17/2022 End: 10-17-2023 Mri abdomen w/o & w/contrast material MRI ABDOMEN WO/W IVCON Radiology Routine Rectal cancer (HCC) 1 Occurrences starting 09/17/2022 until 10/17/2023 [facility] Work Phone: Comment on above: 1 Occurrences starti ng 09/17/2022 until 10/17/2023 End: 03-08-2024 Mri pelvis w/o & w/contrast material MRI RECTUM WO/W IVCON Radiology Routine Malignant neoplasm of rectum (HCC) 1 Occurrences starting 02/07/2023 until 03/08/2024 [facility] Work Phone: Comment on above: 1 Occurrences starti ng 02/07/2023 until 03/08/2024 End: 06-01-2024 Mri pelvis w/o & w/contrast material MRI RECTUM WO/W IVCON Radiology Routine Malignant neoplasm of rectum (HCC) 1 Occurrences starting 05/03/2023 until 06/01/2024 [facility] Work Phone: Comment on above: 1 Occurrences starti ng 05/03/2023 until 06/01/2024 End: 10-17-[address] attenuation skull base mid-thigh NM PET/CT SKULL-THIGH INITIAL Radiology Routine Rectal cancer (HCC) 1 Occurrences starting 09/17/2022 until 10/17/2023 [facility] Work Phone: Comment on above: 1 Occurrences starti ng 09/17/2022 until 10/17/2023 SARS-CoV-2 (COVID-19 ) RNA [Presence] in Respiratory specimen by MIGUE with probe detection SELF CHECK COVID Microbiology Routine Adenopathy Ordered: 2022 [facility] Work Phone: Comment on above: Ordered: 2022 End: 05-03-2024 SIGMOIDOSCOPY SIGMOIDOSCOPY Endoscopy Routine Encounter for follow-up surveillance of rectal cancer 1 Occurrences starting 05/03/2023 until 05/03/2024 [facility] Work Phone: Comment on above: 1 Occurrences starti ng 05/03/2023 until 05/03/2024 End: 07-24-2024 SIGMOIDOSCOPY SIGMOIDOSCOPY Endoscopy Routine Encounter for follow-up surveillance of rectal cancer 1 Occurrences starting 07/24/2023 until 07/24/2024 [facility] Work Phone: Comment on above: 1 Occurrences starti ng 07/24/2023 until 07/24/2024 End: 02-21-2024 US DVT LOWER LEFT US DVT LOWER LEFT Radiology Routine Leg swelling 1 Occurrences starting 01/22/2023 until 02/21/2024 [facility] Work Phone: Comment on above: 1 Occurrences starti ng 01/22/2023 until 02/21/2024 [facility] [place] Immunizations Immunization Date Immunization Notes Care Provider [facility] 09-20-2021 COVID-19 original vaccine, age 12+ yr, monovalent (PFIZER-BIONTECH - PURPLE TOP) Nick Anderson MD Work Phone: [facility] [place] 09-20-2021 COVID-19 vaccine (UNSPECIFIED) Nick Anderson MD Work Phone: [facility] [place] 07-25-2021 influenza, high dose seasonal, preservative-free Nick Anderson MD Work Phone: [facility] [place] 07-25-2021 influenza virus vaccine, unspecified formulation Deborah Norman MD Work Phone: [facility] [place] 03-05-2021 COVID-19 vaccine (UNSPECIFIED) Nick Anderson MD Work Phone: [facility] [place] 12-23-2020 SARS-CoV-2 (COVID-19) mRNA BNT-162b2 vax Lorenzo WHITNEY [facility] 12-02-2020 COVID-19 vaccine (UNSPECIFIED) Nick Anderson MD Work Phone: [facility] [place] 12-02-2020 SARS-CoV-2 (COVID-19) mRNA BNT-162b2 [employer] [facility] Comment on above: Result Comment: Impa ctsiis scanned 10-21-2020 SARS-CoV-2 (COVID-19) mRNA BNT-162f7 vax Lorenzo WHITNEY [facility] Comment on above: Result Comment: Pt i s fully vaccinated but does not know the dates 09-24-2020 zoster vaccine recombinant Lorenzo WHITNEY [facility] 07-21-2020 influenza, high-dose, quadrivalent vaccine (FLUZONE HIGH DOSE QUADRIVALENT) Nick Anderson MD Work Phone: [facility] [place] 09-15-2019 pneumococcal polysaccharide vaccine, 23 valent Lorenzo OLSON [facility] 07-27-2019 influenza nasal, unspecified formulation Nick Anderson MD Work Phone: [facility] [place] 07-27-2019 influenza virus vaccine, unspecified formulation Lorenzo OLSON [facility] 07-14-2018 pneumococcal conjugate vaccine, 13 valent Lorenzo OLSON [facility] 10-25-2009 novel [id number], preservative-free, injectable Nick Anderson MD Work Phone: [facility] [place] 03-31-1997 hepatitis B vaccine, adult dosage Nick Anderson MD Work Phone: [facility] [place] NEGATED: Highlighted row has not occurred! 8 pneumococcal polysaccharide vaccine, 23 valent Patient Objection Valencia Torres Other [employer] Other Payers Date Payer Category Payer Self-pay 2022 Unknown [id number] 2022 Medicare [id number] 2019 Unknown [id number] 2017 Medicare MEDICARE MEDICAR E A AND B [id number] 2017-Present [phone] [place] [address] Medicare [id number] 2017 Medicare [id number] 1959 Medicare [id number] 1959 Unknown [id number] 1952 Unknown [id number] [id number] 1952 Unknown [id number] 2.16.840.1.494680.3.579.2.593 1952 Unknown [id number] 2.16.840.1.462194.3.579.2.593 1952 Unknown [id number] 2.16.840.1.088361.3.579.2.593 1952 Unknown [id number] 2.16.840.1.444021.3.579.2.1259 1952 Unknown [id number] 2.16.840.1.737164.3.579.2.727 1952 Unknown [id number] 2.16.840.1.748945.3.579.2.727 1952 Unknown [id number] 2.16.840.1.859316.3.579.2.727 1952 Unknown [id number] 2.16.840.1.305392.3.579.2.727 1952 Unknown [id number] 2.16.840.1.949965.3.579.2.727 1952 Unknown [id number] 2.16.840.1.157518.3.579.2.72 1952 Unknown [id number] 2.16.840.1.953506.3.579.2.72 1952 Unknown [id number] 2.16.840.1.562795.3.579.2.72 1952 Unknown [id number] 2.16.840.1.333285.3.579.2.72 1952 Unknown [id number] 2.16.840.1.338856.3.579.2. 1952 Unknown [id number] 2.16.840.1.370062.3.579.2.727 1952 Unknown [id number] 2.16.840.1.653634.3.579.2.727 1952 Unknown [id number] 2.16.840.1.080231.3.579.2.72 Unknown [facility] [id number] Unknown [id number] 2.16.840.1.542029.3.579.2.531 Unknown [id number] 2.16.840.1.377481.3.579.2.531 Unknown [id number] 2.16.840.1.368907.3.579.2.531 Unknown [id number] [id number] Social History Date Type Detail Facility Start: 07-11-2021 End: 12-25-2022 Tobacco smoking status Never smoked tobacco (finding) [facility] Tobacco smoking status Never [facility] Start: 02-21-2023 End: 04-16-2023 Sex Assigned At Male [facility] Start: 08-04-2018 End: 12-25-2022 Tobacco use and exposure Smokeless tobacco non-user [facility] [place] Start: 08-04-2018 End: 08-27-2023 Alcohol intake Current drinker of alcohol (finding) [facility] [place] Start: 08-04-2018 [facility] Start: 1950 Sex Assigned At Not on file [facility] [place] Start: 09-07-2022 End: 09-24-2022 Exposure to SARS-CoV-2 (event) Not sure [facility] [place] Start: 1950 Sex Assigned At Male [facility] Start: 02-21-2023 End: 04-16-2023 History of Social function [facility] [place] NEGATED: Highlighted rowStart: NINF History of tobacco use Passive smoker [facility] [place] Medical Equipment Procedure Code Equipment Code Equipment Origin al Text Equipment Identifier Dates -12/20/2022 [id number] Start: 12-20-2022 Comment on above: Description: [place] [facility] ; Saline only flushes Functional Status Date Assessment Result Facility 10-09-2023 Functional Status N/A [facility] 05-07-2023 Functional Status N/A [facility] 04-29-2023 Functional Status No [facility] 03-18-2023 Functional Status N/A [facility] 01-22-2023 Functional Status No [facility] 10-24-2022 Functional Status N/A [facility] 10-03-2022 Functional Status No [facility] 08-20-2022 Functional Status N/A [facility] 08-14-2022 Functional Status N/A [facility] General [facility] [place] 05-31-2022 Functional Status N/A [facility] Family Medicine [place] 04-03-2022 Functional Status N/A [facility] Clinical Notes 11-14-2019 to 11-05-2023 Chelsie Ríos RN - 10/10/2023 8:33 AM EST Note Date & Type Note Facility 11-05-2023 Note HNO ID: [id number] Author: CHELSIE RÍOS RN Service: ? Author Type: Registered Nurse Type: Progress Notes Filed: 11/05/2023 10:53 Note Text: Sigmoidoscopy order [facility] 10-10-2023 Note HNO ID: [id number] Author: Chelsie Ríos RN Service: ? Author Type: Registered Nurse Type: Progress Notes Filed: 10/10/2023 9:08 AM Note Text: CEA order [facility] 10-10-2023 History of Present illness Narrative CEA order documented in this encounter [facility] [place] 10-09-2023 Evaluation + Plan note Extrac swati from: Title:Pain Managment Follow up Author:Cyndee Morales Date:10/09/23 Impression and Plan Patient is a 73-year-old male with a past medical history significant for lumbar spondylosis, lumbar stenosis and lumbar neuritis. he underwent a full course of physical therapy without improvement. Vzfh-rde-[id number] medications have not helped. He is not able to use anti-inflammatory medications due to Xarelto. He had a recent MRI. He saw Dr. Marcum. Surgery was discussed but he was recommended to pursue conservative treatments first. Based on his imaging findings, his pain pattern, his failure to improve with previous conservative treatments and the discomfort he has been experiencing for well over 6 months I recommended to patient a bilateral L4-5 transforaminal epidural steroid injection under fluoroscopy for both diagnostic and therapeutic purposes. Procedure was discussed. Risk and benefits were discussed. Patient is agreeable. He will follow-up 2 weeks after the injection for reevaluation. Call clinic sooner if necessary. MEHRAN score: 18% Future Appointments Appointment Date:11/01/2023 01:45:00 PM Scheduled Provider:Santiago Kong [facility] Type:Cardiology Follow Up () Appointment Date:01/03/2024 09:45:00 AM Scheduled Provider:Corey MCKEE MD Location:[facility] Appointment Type:URO Office Visit Future Scheduled Tests Radiology* XR Abdomen 1 View 09/20/22 [facility]11-08-2023 Miscellaneous Notes* Telephone Encounter - Chelsie Ríos RN - 08/28/2023 9:52 AM EST Scheduled for sigmoidoscopy with Dr. Norman on 11/05/23. Dr. Norman said he does not need to see the patient in the office, he will just talk to him on the day of his sigmoidoscopy. * Telephone Encounter - Lucina Calderon - 08/27/2023 9:[address] Nick Andersno is referring Michael back to see Dr Norman. Patient is scheduled for his MRI of rectum on 10-24-23. Please schedule follow up after that imaging. Thank you for your help. [facility] [place] Note [id number]2023 [facility]10-04-2023 NoteHNO ID: [id number] Author: Chelsie Ríos RN Service: ? Author Type: Registered Nurse Type: Progress Notes Filed: 07/24/2023 2:27 PM Note Text: [facility] History of Present illness Narrative* Chelsie Ríos RN - 07/24/2023 2:22 PM EDT CEA and sigmoidoscopy [facility] [place] Evaluation note* Encounter Date Diagnosis Assessment Notes Treatment Notes Treatment Clinical Notes Jun, Polyneuropathy (ICD-10 - G62.9) EMG results reviewed face to face with patient, of lower extremities and which shows a generalized process such as polyneuropathy, which is axonal loss and type and severe in degree elect strictly. This process has worsened compared to the previous evaluation of the lower extremities performed 01/30/2012. Patient has significant past medical history of cervical fusion x2. No history of diabetes mellitus, takes Xarelto. Patient states was previously on gabapentin unknown dosage, short period of time from primary care. States was previously on Gabapentin unsure of doseage. Will start gabapentin follow up with PCP. Will restart gabapentin and follow-up in 8 weeks. Jun, Lumbar back pain (ICD-10 - M54.50) Reviewed xray of low back from [facility] 05/21/2023, which shows there is prominent narrowing of the L1-L2 and L2-L3 interspace moderate narrowing of the L3-L4 interspace and mild narrowing of the L4-5. There is marginal hypertrophic spurs of the lumbar vertebral bodies. There is hypertrophic arthritic changes of the lumbar facet joints. The vertebral bodies are maintained in height. No fracture noted. There is a grade 1 retrolisthesis at the L1-L2, L2-3, and L3-4 and a grade 1 anterior thesis at the L4-5. WIll get PT notes for continuity of care.Will order MRI to rule out cord envolvement and determine procedure interventions. Follow up in 8 weeks. Medical decision making shows a new problem to me with further workup planned or suggested with the potential for extensive treatment options that were considered with the most applicable given this patient's situation as noted above. Treatment options considered include a combination of physical therapy approaches, pharmacologic management, and interventional procedures. Those most applicable to the patient were discussed at this time. Risk of complications and/or morbidity and mortality is high given that acute and chronic pain poses a threat to life and bodily function if undertreated, poorly treated or with failure to maintain adequate treatment and timely followup. Given the serious and fluctuating nature of pain with extensive consideration for whenever pain changes, there always remains the possibility of prolonged functional impairment requiring constant patient reassessment and high-level medical decision making. The amount and complexity of data reviewed is high given that patient labs, radiology reports, and other test were obtained, reviewed and summarized Jun, Cervical radiculopathy (ICD-10 - M54.12) -Improved ROM/ pain is minimal with Physical Therapy. [employer] Other 09-19-2023 Miscellaneous Notes* Anesthesia PreOp - Toshia Mixon MD - 07/09/2023 9:30 AM EDT PROCEDURAL SEDATION HISTORY AND PHYSICAL EXAM SERVICE DATE: 07/09/2023 SERVICE TIME: 9:22 AM Subjective HPI: This is a 72 year old male who presents for sigmoidoscopy. Last Xarelto yesterday. Change in bowel habits: Incontinence - few times a week Last sigmoidoscopy date: 03/2023 PAST ANESTHESIA HISTORY: No history of adverse event PAST MEDICAL HISTORY Diagnosis Date Acute low back pain with possible spinal stenosis of less than six weeks' duration Adenocarcinoma of rectum (HCC) Arthritis Bilateral renal cysts peripelvic BPH with urinary obstruction Cholelithiasis History of kidney stones Non-ischemic cardiomyopathy (HCC) Pulmonary emboli (HCC) 2019 left lower lobe RA (rheumatoid arthritis) (HCC) PAST SURGICAL HISTORY Procedure Laterality Date COLONOSCOPY HAMMERTOE REVISION, ONE TOE HEMORRHOID SURGERY HX HERNIA REPAIR HX LITHOTRIPSY PROC UNILATERAL REMV CATARACT EXTRACAP,INSERT LENS Prior to Admission medications as of 07/09/23 0849 Medication Sig Last Dose Taking gabapentin (NEURONTIN) 300 mg capsule Take 1 capsule by mouth daily at bedtime for 30 days. 07/08/2023 Yes rivaroxaban (XARELTO) 20 mg tablet Take 1 tablet by mouth daily with dinner. 07/08/2023 Yes glucosamine/chondr perez A sod (GLUCOSAMINE-CHONDROITIN) 1,500-1,200 mg/30 mL liqd Take by mouth once daily. 07/08/2023 Yes hydroCHLOROthiazide (HYDRODIURIL, ESIDRIX) 12.5 mg capsule Take 12.5 mg by mouth once daily. 07/08/2023 Yes finasteride (PROSCAR) 5 mg tablet Take by mouth once daily. 07/08/2023 Yes acetaminophen 325 mg cap Take by mouth as needed. 07/08/2023 Yes predniSONE (DELTASONE) 5 mg tablet Take 5 mg by mouth once daily. 07/08/2023 Yes valsartan (DIOVAN) 80 mg tablet Take 80 mg by mouth once daily. 07/08/2023 Yes carvedilol (COREG) 6.25 mg tablet Take 6.25 mg by mouth twice daily with meals. 07/08/2023 Yes folic acid 1 mg tablet Take 1 mg by mouth once daily. 07/08/2023 Yes tamsulosin ER (FLOMAX) 0.4 mg cap Take 0.4 mg by mouth twice daily. 07/08/2023 Yes Ascorbic Acid 100 mg tablet Take 100 mg by mouth twice daily. 07/08/2023 Yes iv contrast (will be provided with radiology test) MRI Rectum Inject, intravenously, once for 1 dose. No IV access, insert saline lock prior to the beginning of sedation, infusion, injection of imaging exam. Discontinue saline lock post exam. If Pt has a central line or IVAD, may access for administration according to line specific nursing protocol. Once exam is complete flush line and de-access according to line specific nursing protocol in the MR contrast administration guidelines link. enteric contrast (will be provided with radiology test) MRI RECTUM WO/W. Administer, As Directed One Time Only, via Oral, Rectal, both Oral and Rectal, Enteric Tube, Stoma or Indwelling Catheter, Enteric Contrast as designated per enteric contrast guidelines Unknown cyclobenzaprine (FLEXERIL) 10 mg tablet Take 10 mg by mouth. Unknown iv contrast (will be provided with radiology test) MRI Rectum Inject, intravenously, once for 1 dose. No IV access, insert saline lock prior to the beginning of sedation, infusion, injection of imaging exam. Discontinue saline lock post exam. If Pt has a central line or IVAD, may access for administration according to line specific nursing protocol. Once exam is complete flush line and de-access according to line specific nursing protocol in the MR contrast administration guidelines link. enteric contrast (will be provided with radiology test) MRI RECTUM WO/W. Administer, As Directed One Time Only, via Oral, Rectal, both Oral and Rectal, Enteric Tube, Stoma or Indwelling Catheter, Enteric Contrast as designated per enteric contrast guidelines Unknown calcium carbonate (CALCIUM 600 ORAL) Take 1 tablet by mouth once daily. Unknown diphenhydrAMINE-Acetaminophen (TYLENOL PM EXTRA STRENGTH) 25-500 mg tab Take 1 tablet by mouth daily at bedtime. Unknown ALLERGIES No Known Allergies Objective PHYSICAL EXAM: The remainder of the physical exam is noncontributory. GENERAL: Alert, no distress, cooperative, No Distress ABDOMEN: Abdomen soft, non-tender, BS normal, No masses or organomegaly AIRWAY: LUNGS: Nonlabored breathing, no audible wheezing CARDIAC: regular rate and rhythm Assessment/Plan ASA Class: Active Problems: * No active hospital problems. * Resolved Problems: * No resolved hospital problems. * Provisional Diagnosis/Treatment Plan: Plan for Sigmoidoscopy, possibly polypectomy, possible biopsy Risk and benefits discussed with patient Consent obtained SIGNATURE: Toshia Mixon MD PATIENT NAME: Mervat Damon DATE: July 09, 2023 TIME: 9:22 AM documented in this encounterSelect [facility] [place] NoteHNO ID: [id number] Author: Chelsie Ríos, RN Service: ? Author Type: Registered Nurse Type: Progress Notes Filed: 06/25/2023 4:02 PM Note Text: CT chest, [facility] History of Present illness Narrative* Chelsie Ríos RN - 06/25/2023 3:[address] chest, CT abdomen orders documented in this encounterSelect [facility] [place] Miscellaneous Notes* Telephone Encounter - Ryan Hollis APRN.CNP - 06/20/2023 10:44 AM EDT The following approved medication requests have been transmitted electronically. Requested Prescriptions Signed Prescriptions Disp Refills gabapentin (NEURONTIN) 300 mg capsule 30 capsule 0 Sig: Take 1 capsule by mouth daily at bedtime for 30 days. Authorizing Provider: RYAN HOLLIS APRN.CNP * Telephone Encounter - Denisha Duarte RN - 06/20/2023 10:27 AM EDT Today's labs reviewed per Dr Anderson. Dr Anderson instructs to call and inform pt that his labs did not show any electrolyte imbalance. Believes his neuropathy could be related to his prior treatment. Recommends Gabapentin 300 mg at HS if pt agrees. Pt notified of the above and verbalizes understanding. Would like script sent to [facility]. RACIEL/Ryan: Script pended. Denisha Duarte RN documented in this encounterSelect Medical [facility] [place]08-30-2023 Miscellaneous Notes* Telephone Encounter - Denisha Duarte RN - 06/19/2023 2:[address] Anderson received a call on his [facility] cell today from pt. Pt c/o neuropathy in his hands and feet. Dr would like pt to have labs drawn when here tomorrow for CT. Orders to draw: CBC, CMP, Mg, & CEA. BRHesham/Marie (Ryan out of office): Orders pended. Please review and approve. Thanks! Etelvina Allen notified of need for labs. Denisha Duarte RN documented in this encounterSelect Medical [facility] [place]08-29-2023 Evaluation note* Encounter Date Diagnosis Assessment Notes Treatment Notes Treatment Clinical Notes May, Cervical stenosis of spine (ICD-10 - M48.02) I inedpendently reviewed the MRI and xray reviewed face to face with patient which shows no cord compression or cord signal abnormalities. There is preservation of the vertebral heights there is intervertebral fusion at the C4-C5 with anterior fusion from C5-C7 unchanged from previous exam the vertebral soft tissues are within normal limits. At the C3-C4 there is broad disc bulge with a negative joint degenerative changes contributing to moderate bilateral neuroforaminal narrowing with mild lateral canal narrowing. Discussion with Dr. Marcum and patient is not a surgical candidate at this time in which patient would benefit to continue with pain management for injection therapy. Will order EMG to differentiate between radicular versus peripheral neuropathy of bilateral upper extremities. Follow-up 6 months. May, Neuropathy (ICD-10 - G62.9) [employer] Other 08-08-2023 [facility]08-08-2023 History of Present illness Narrative* Nick Anderson MD - 05/28/2023 7:41 AM EDT PATIENT NAME: Mervat Damon DATE: 05/28/2023 PRIMARY CARE PHYSICIAN: Dr. Lorenzo lOson OTHER PHYSICIANS: Dr. Mervat Slaughter, Dr. Thalia Troy, Dr. Kiko Treadwell, Dr. Vásquez, Dr. Mert Krueger, Dr. Shaheed Norman Portions of this encounter note have been copied from the note from 04/16/2023 and has been updated where appropriate, and reflect my current medical decision making from today. CC: This is a 72 year old male with localized rectal cancer, seen for scheduled follow-up and continued treatment. INTERIM HISTORY: Since the patient's last visit here he underwent a rectal MRI on 04/18/2023, and itrevealed no evidence of residual disease. Recommendations were to hold off on surgery and proceed with active surveillance. Clinically the patient feels well. His bowel habits have returned to normal. No evidence of GI bleeding. Energy and appetite are excellent. He remains on Xarelto for his recent DVT and is tolerating well. No residual leg pain or swelling. MEDICATIONS: Current Outpatient Medications Medication Sig oxyCODONE-acetaminophen (PERCOCET) 5-325 mg tablet Take 1 tablet by mouth every 6 hours as needed for pain. potassium chloride (K-TAB) 10 mEq tablet Take 1 tablet by mouth once daily. rivaroxaban (XARELTO) 20 mg tablet Take 1 tablet by mouth daily with dinner. iv contrast (will be provided with radiology test) MRI Rectum Inject, intravenously, once for 1 dose. No IV access, insert saline lock prior to the beginning of sedation, infusion, injection of imaging exam. Discontinue saline lock post exam. If Pt has a central line or IVAD, may access for administration according to line specific nursing protocol. Once exam is complete flush line and de-access according to line specific nursing protocol in the MR contrast administration guidelines link. enteric contrast (will be provided with radiology test) MRI RECTUM WO/W. Administer, As Directed One Time Only, via Oral, Rectal, both Oral and Rectal, Enteric Tube, Stoma or Indwelling Catheter, Enteric Contrast as designated per enteric contrast guidelines cyclobenzaprine (FLEXERIL) 10 mg tablet Take 10 mg by mouth. iv contrast (will be provided with radiology test) MRI Rectum Inject, intravenously, once for 1 dose. No IV access, insert saline lock prior to the beginning of sedation, infusion, injection of imaging exam. Discontinue saline lock post exam. If Pt has a central line or IVAD, may access for administration according to line specific nursing protocol. Once exam is complete flush line and de-access according to line specific nursing protocol in the MR contrast administration guidelines link. enteric contrast (will be provided with radiology test) MRI RECTUM WO/W. Administer, As Directed One Time Only, via Oral, Rectal, both Oral and Rectal, Enteric Tube, Stoma or Indwelling Catheter, Enteric Contrast as designated per enteric contrast guidelines calcium carbonate (CALCIUM 600 ORAL) Take 1 tablet by mouth once daily. diphenhydrAMINE-Acetaminophen (TYLENOL PM EXTRA STRENGTH) 25-500 mg tab Take 1 tablet by mouth daily at bedtime. glucosamine/chondr perez A sod (GLUCOSAMINE-CHONDROITIN) 1,500-1,200 mg/30 mL liqd Take by mouth once daily. hydroCHLOROthiazide (HYDRODIURIL, ESIDRIX) 12.5 mg capsule Take 12.5 mg by mouth once daily. finasteride (PROSCAR) 5 mg tablet Take by mouth once daily. HYDROcodone-acetaminophen (NORCO) 5-325 mg per tablet Take 1 tablet by mouth every 8 hours as needed for pain. ondansetron (ZOFRAN) 8 mg tablet Take 1 tablet by mouth every 8 hours as needed for nausea/vomiting. prochlorperazine (COMPAZINE) 10 mg tablet Take 1 tablet by mouth every 6 hours as needed. acetaminophen 325 mg cap Take by mouth as needed. predniSONE (DELTASONE) 5 mg tablet Take 5 mg by mouth once daily. valsartan (DIOVAN) 80 mg tablet Take 80 mg by mouth once daily. carvedilol (COREG) 6.25 mg tablet Take 6.25 mg by mouth twice daily with meals. folic acid 1 mg tablet Take 1 mg by mouth once daily. tamsulosin ER (FLOMAX) 0.4 mg cap Take 0.4 mg by mouth twice daily. Ascorbic Acid 100 mg tablet Take 100 mg by mouth twice daily. No current facility-administered medications for this visit. ALLERGIES: ALLERGIES No Known Allergies PAST MEDICAL HISTORY: PAST MEDICAL HISTORY Diagnosis Date Acute low back pain with possible spinal stenosis of less than six weeks' duration Adenocarcinoma of rectum (HCC) Arthritis Bilateral renal cysts peripelvic BPH with urinary obstruction Cholelithiasis History of kidney stones Non-ischemic cardiomyopathy (HCC) Pulmonary emboli (HCC) 2019 left lower lobe RA (rheumatoid arthritis) (HCC) PAST SURGICAL HISTORY: PAST SURGICAL HISTORY Procedure Laterality Date COLONOSCOPY HAMMERTOE REVISION, ONE TOE HEMORRHOID SURGERY HX HERNIA REPAIR HX LITHOTRIPSY PROC UNILATERAL REMV CATARACT EXTRACAP,INSERT LENS FAMILY HISTORY: FAMILY HISTORY Problem Relation Age of Onset Pancreatic Cancer Mother Cancer Father bladder Liver Cancer Sister Cancer Brother Thyroid and Prostate Colon Cancer No Family History SOCIAL HISTORY: Social History Tobacco Use Smoking status: Never Passive exposure: Never Smokeless tobacco: Never Vaping Use Vaping Use: Never used Substance Use Topics Alcohol use: Yes Comment: rarely Drug use: No REVIEW OF SYSTEMS: General: No weight loss, malaise or fevers. HEENT: Negative for frequent or significant headaches. No changes in hearing or vision, no nose bleeds or other nasal problems. Respiratory: Negative for cough, wheezing or shortness of breath. Cardiovascular: Negative for chest pain, leg swelling or palpitations. GI: Negative for abdominal discomfort, blood in stools or black stools or change in bowel habits. See HPI. : No history of dysuria, frequency or incontinence. Musculoskeletal: Negative for joint pain or swelling, back pain and muscle pain. Skin: Negative for lesions, rash and itching. Hematology/Lymphology: Negative for prolonged bleeding, bruising easily or swollen nodes. Neuro: No history of headaches, syncope, paralysis, seizures or tremors PHYSICAL EXAM: BP 124/86 Pulse 64 Temp 36.4 C (97.6 F) (Temporal) Resp 16 Ht 187.7 cm (6' 1.9 ) Wt 106 kg (233 lb 9.6 oz) SpO2 95% BMI 30.08 kg/m ECOG 0 Exam limited to gross visualization where appropriate due to COVID-19. Gen.: This is an age-appropriate patient in no acute distress. Head: Appears atraumatic with no visible lesions. Eyes: Pupils equally round and reactive to light, extraocular muscles are intact. Neck: Supple. Mouth: Masked. Respiratory: Appears to be respiring comfortably. Neurologic: Nonfocal to gross visualization. Alert and oriented 3. Psychiatric: No evidence of inappropriate anxiety or depression. Skin: Visible areas of skin without rash, lesions, wounds or petechiae. PATHOLOGY: 04/09/2023 Anal canal, polyp, biopsy: - Squamous mucosa polyp. 08/20/2022 Colonoscopic biopsy ([facility]) Adenocarcinoma of colon (mass at anal verge) Mismatch repair gene -normal expression RADIOLOGY/OTHER STUDIES: 04/18/2023 MRI rectum IMPRESSION: Dense scar in the low rectal wall and involving nearly the entire length of the anal canal. No residual viable tumor. No lymphadenopathy. Since 09/11/2022, post treatment primary tumor assessment: Complete/near complete response. mrTRG: Grade 2 - Good response Suspicious Mesorectal lymph nodes: No. Suspicious Extramesorectal lymph nodes: No. 04/09/2023 Colonoscopy 4 mm polyp in the anus (resected), scar tissue in the rectum, and no other abnormalities. Pathology on the resected anal polyp was benign. 01/22/2023 Lower extremity Doppler ([facility]) Extensive deep venous thrombosis of the left leg 12/10/2022 CT chest IMPRESSION: 1. Multiple indeterminate noncalcified pulmonary nodules measuring up to 1 cm are unchanged since 09/11/2022. No enlarging nodule is identified. 2. Unchanged enlarged mediastinal lymph nodes. 3. Please refer to concurrently acquired and separately reported abdomen CT for findings related to the upper abdomen. 12/10/2022 CT abdomen/pelvis IMPRESSION: 1. No evidence of metastatic disease within the abdomen/pelvis. 2. The known rectal neoplasm is not well delineated on this exam. Circumferential urinary bladder wall thickening is likely secondary to treatment-related cystitis. 3. Diverticulosis coli, without associated inflammation. 4. Please refer to concurrently acquired and separately reported chest CT for findings related to the thorax. 10/01/2022 MRI abdomen ([facility]) No MRI evidence of liver lesion 09/25/2022 PET scan IMPRESSION: Head and Neck: * No hypermetabolic foci Chest: * Hypermetabolic mediastinal lymphadenopathy represent inflammatory/infectious etiology versus neoplastic. * Redemonstration of a few pulmonary nodules measuring up to 7 mm which are not well assessed on PET/CT given size, recommend follow-up with chest CT as clinically warranted. Abdomen and pelvis: * Hypermetabolic focus within the distal rectum at the site of previously visualized rectal cancer, better assessed on prior MRI. Musculoskeletal: * No neoplastic hypermetabolic lesions 09/11/2022 MRI pelvis ([facility]) Low rectal neoplasm with suspected early invasion of the internal anal sphincter at the upper canal(MRI category T3b, N0). Few nonenlarged 2 to 3 mm mesorectal lymph nodes. No suspicious lymphadenopathy. 09/11/2022 CT chest, abdomen, pelvis ([facility]) Possible low-attenuation lesion right hepatic lobe under centimeter in size. MRI could better characterize this should be performed with IV contrast. Nodular density within the left adrenal gland which could represent metastasis or adenoma. Multiple noncalcified pulmonary nodules worrisome for metastatic disease. Largest measures approxi-1 cm in the right upper lobe. LABORATORY DATA: Hemoglobin (g/dL) Date Value 05/28/2023 12.2 08/04/2018 14.3 Hematocrit (%) Date Value 05/28/2023 37.7 08/04/2018 43.1 WBC (k/uL) Date Value 05/28/2023 9.54 08/04/2018 6.24 Platelet Count (k/uL) Date Value 05/28/2023 206 08/04/2018 216 CEA 09/05/2022 14.4 09/17/2022 15.7 10/02/2022 14.1 10/29/2022 10.5 11/19/2022 3.7 12/17/2022 1.7 01/22/2023 2.4 03/19/2023 2.0 ASSESSMENT/PLAN: 1. 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 Pelvic MRI confirmed T3bN0 disease. However, baseline CT scans were abnormal indicating bilateral pulmonary nodules and a suspicious liver lesion. PET scan 09/25/2022 revealed low-level FDG uptake in the mediastinal nodes of unclear significance, but no uptake in the pulmonary nodules. Liver MRI was negative. Mediastinal EBUS biopsy 10/10/2022 was negative. It was felt the patienthad localized disease, and recommendations were to proceed with neoadjuvant chemoradiation. Treatment with capecitabine 825 mg/m2 twice daily concurrent with pelvic radiation given 10/08/2022 through 11/19/2022. With treatment the patient's rectal pain and bleeding resolved. Follow-up CT scans 12/10/2022 stable, with no evidence of metastatic disease. Subsequently the patient continued neoadjuvant treatment with chemotherapy consisting of FOLFOX. Cycle 1 started 12/25/2022. As of 03/21/2023 he completed cycle 7. It was then elected to discontinue chemotherapy to minimize toxicity. Follow-up colonoscopy 04/09/2023 revealed no evidence of disease. Follow-up rectal MRI 04/18/2023 revealed no evidence of disease. Currently the patient is clinically stable and asymptomatic. At this time the patient will continue with active surveillance: Exam, KHRIS, CEA and flex sig: year 0-2 every 3 months, years 3-4 every 6 months, years 5-10 yearly MRI pelvis: Years 0-4 every 6 months, years 5-[address] chest, abdomen, pelvis: Years 0-2 every 6 months, years 3-10 yearly Colonoscopy: 1 year after treatment, then every 3 years We will schedule 6-month surveillance CT scans this month. He will follow-up with Dr. Norman with plans to undergo a flex sig at 3 months (June 2023). We will arrange for port flush in 6 weeks. Iwill see him back in 12 weeks for follow-up. 2. Rheumatoid arthritis Diagnosed 2005. Previous treatment has included steroids, Enbrel, and methotrexate. Currently stable on low-dose steroids (prednisone 5 mg daily). Continue management per rheumatology (Dr. Treadwell) 3. Cardiomyopathy History of nonischemic cardiomyopathy. Currently minimally symptomatic. Continue management per PCP/cardiology. 4. History of cervical spinal stenosis Status post cervical spine fusion. Currently asymptomatic. 5. Benign prostatic hypertrophy History of LUTS consistent with BPH. Minimally symptomatic at this time. Continue management per PCP/urology. 6. Hypercoagulable state - history of pulmonary embolism and DVT Pulmonary embolism diagnosed June 2018 after a prolonged car ride. Status post anticoagulationwith Eliquis x 2 years. January 2023 the patient developed acute left leg pain and swelling. Lower extremity Doppler scan 01/22/2023 revealed an extensive DVT of the left leg. Anticoagulation with Xarelto started 01/23/2023. Currently stable. Plans will be to continue anticoagulation indefinitely. Nick Anderson MD documented in this encounterSelect Medical [facility] [place]-25-[facility]23 Miscellaneous Notes* Telephone Encounter - Denisha Duarte RN - 05/14/2023 8:22 AM EDT Pt here for repeat potassium today. Lab orders pended. Denisha Duarte, RN documented in this encounterSelect Medical [facility], [place]07-18-[facility] Evaluation + Plan note Extracted from: Title:NPV Author:Anthony ARRINGTON, Bryon Matos Date :05/07/23 Impression and Plan 72-year-old gentleman with history of cervical spine surgery, rheumatoid arthritis, and rectal cancer with much improved neck and now low back pain. The pain is likely facet mediated based on the patient's symptoms. His symptoms are much worse in the morning and tend to improve as he gets moving. No imaging of the lumbar spine. I recommend an x-ray for evaluation. I suggested starting a physical therapy program pending x-ray results. Patient agrees with plan of care. He will return to clinic after physical therapy if pain persist. Future Scheduled Tests Radiology* XR Abdomen 1 View 09/20/22 [facility]07-14-2023 Miscellaneous Notes* Telephone Encounter - Chelsie Ríos RN - 05/03/2023 3:05 PM EDT Returned call. Left voice message telling him we will schedule his sigmoidoscopy with Dr. Norman on 07-09-23 and will send him the prep information through My Chart. * Telephone Encounter - Kraig Herring - 05/03/2023 2:41 PM EDT Pt calling to let Chelsie know that 07/09/23Saturday would be his best option for colonoscopy. Contact #: [phone] documented in this encounterSelect Medical [facility] [place]07-14-2023 Miscellaneous Notes* Telephone Encounter - Chelsie Ríos RN - 05/03/2023 9:39 AM EDT Called and left voice message asking him to call back to schedule a flexible sigmoidoscopy with in June. I told him the available dates were Jun.25, and Jul 23. He will also need a CEA in June. Asked him to please call back to get this scheduled. Informed him he will be due for an MRI and CT in September. documented in this encounterSelect Medical [facility] [place]07-14-2023 Miscellaneous Notes* Telephone Encounter - Chelsie Ríos RN - 05/03/2023 9:21 AM EDT Sigmoidoscopy, CEA, MRI rectum and CT chest/abd orders Flex sig and CEA in q 3 month until March [address] in q 6 months until March 2025 documented in this encounterSelect Medical [facility] [place]07-[facility] Hospital Discharge instructions Patient Education 04/29/2023 09:33:46 Heart-Healthy Eating Plan, [id number] Heart-Healthy Eating Plan Heart-healthy meal planning includes: Eating less unhealthy fats. Eating more healthy fats. Making other changes in your diet. Talk with your doctor or a diet specialist (dietitian) to create an eating plan that is right for you. What is my plan? Your doctor may recommend an eating plan that includes: Total fat: % or less of total calories a day. Saturated fat: % or less of total calories a day. Cholesterol: less than mg a day. What are tips for following this plan? Cooking Avoid frying your food. Try to bake, boil, grill, or broil it instead. You can also reduce fat by: Removing the skin from poultry. Removing all visible fats from meats. Steaming vegetables in water or broth. Meal planning At meals, divide your plate into four equal parts: ?Fill one-half of your plate with vegetables and green salads. ?Fill one-fourth of your plate with whole grains. ?Fill one-fourth of your plate with lean protein foods. Eat 4 5 servings of vegetables per day. A serving of vegetables is: ?1 cup of raw or cooked vegetables. ?2 cups of raw leafy greens. Eat 4 5 servings of fruit per day. A serving of fruit is: ?1 medium whole fruit. ? cup of dried fruit. ? cup of fresh, frozen, or canned fruit. ? cup of 100% fruit juice. Eat more foods that have soluble fiber. These are apples, broccoli, carrots, beans, peas, and barley. Try to get 20 30 g of fiber per day. Eat 4 5 servings of nuts, legumes, and seeds per week: ?1 serving of dried beans or legumes equals cup after being cooked. ?1 serving of nuts is cup. ?1 serving of seeds equals 1 tablespoon. General information Eat more home-cooked food. Eat less restaurant, buffet, and fast food. Limit or avoid alcohol. Limit foods that are high in starch and sugar. Avoid fried foods. Lose weight if you are overweight. Keep track of how much salt (sodium) you eat. This is important if you have high blood pressure. Ask your doctor to tell you more about this. Try to add vegetarian meals each week. Fats Choose healthy fats. These include olive oil and canola oil, flaxseeds, walnuts, almonds, and seeds. Eat more omega-3 fats. These include salmon, mackerel, sardines, tuna, flaxseed oil, and ground flaxseeds. Try to eat fish at least 2 times each week. Check food labels. Avoid foods with trans fats or high amounts of saturated fat. Limit saturated fats. ?These are often found in animal products, such as meats, butter, and cream. ?These are also found in plant foods, such as palm oil, palm kernel oil, and coconut oil. Avoid foods with partially hydrogenated oils in them. These have trans fats. Examples are stick margarine, some tub margarines, cookies, crackers, and other baked goods. What foods can I eat? Fruits All fresh, canned (in natural juice), or frozen fruits. Vegetables Fresh or frozen vegetables (raw, steamed, roasted, or grilled). Green salads. Grains Most grains. Choose whole wheat and whole grains most of the time. Rice and pasta, including brown rice and pastas made with whole wheat. Meats and other proteins Lean, well-trimmed beef, veal, pork, and gonzalez. Chicken and turkey without skin. All fish and shellfish. Wild duck, rabbit, pheasant, and venison. Egg whites or low-cholesterol egg substitutes. Dried beans, peas, lentils, and tofu. Seeds and most nuts. Dairy Low-fat or nonfat cheeses, including ricotta and mozzarella. Skim or 1% milk that is liquid, powdered, or evaporated. Buttermilk that is made with low-fat milk. Nonfat or low-fat yogurt. Fats and oils Non-hydrogenated (trans-free) margarines. Vegetable oils, including soybean, sesame, sunflower, olive, peanut, safflower, corn, canola, and cottonseed. Salad dressings or mayonnaise made with a vegetable oil. Beverages Mineral water. Coffee and tea. Diet carbonated beverages. Sweets and desserts Sherbet, gelatin, and fruit ice. Small amounts of dark chocolate. Limit all sweets and desserts. Seasonings and condiments All seasonings and condiments. The items listed above may not be a complete list of foods and drinks you can eat. Contact a dietitian for more options. What foods should I avoid? Fruits Canned fruit in heavy syrup. Fruit in cream or butter sauce. Fried fruit. Limit coconut. Vegetables Vegetables cooked in cheese, cream, or butter sauce. Fried vegetables. Grains Breads that are made with saturated or trans fats, oils, or whole milk. Croissants. Sweet rolls. Donuts. High-fat crackers, such as cheese crackers. Meats and other proteins Fatty meats, such as hot dogs, ribs, sausage, may, rib-eye roast or steak. High-fat deli meats, such as salami and bologna. Caviar. Domestic duck and goose. Organ meats, such as liver. Dairy Cream, sour cream, cream cheese, and creamed cottage cheese. Whole-milk cheeses. Whole or 2% milk that is liquid, evaporated, or condensed. Whole buttermilk. Cream sauce or high-fat cheese sauce. Yogurt that is made from whole milk. Fats and oils Meat fat, or shortening. [place] butter, hydrogenated oils, palm oil, coconut oil, palm kernel oil. Solid fats and shortenings, including may fat, salt pork, lard, and butter. Nondairy cream substitutes. Salad dressings with cheese or sour cream. Beverages Regular sodas and juice drinks with added sugar. Sweets and desserts Frosting. Pudding. Cookies. Cakes. Pies. Milk chocolate or white chocolate. Buttered syrups. Full-fat ice cream or ice cream drinks. The items listed above may not be a complete list of foods and drinks to avoid. Contact a dietitianfor more information. Summary Heart-healthy meal planning includes eating less unhealthy fats, eating more healthy fats, and making other changes in your diet. Eat a balanced diet. This includes fruits and vegetables, low-fat or nonfat dairy, lean protein, nuts and legumes, whole grains, and heart-healthy oils and fats. This information is not intended to replace advice given to you by your health care provider. Make sure you discuss any questions you have with your health care provider. Document Revised: 02/15/2022 Document Reviewed: 02/15/2022 [employer] Patient Education 2021 [employer]. Follow Up Care 01/22/2023 16:31:22 With:Dilan ARRINGTON, Santiago Matos. Address: When:6 months Comments:Call for sooner apt with new/worsening symptoms [facility]07-07-2023 Miscellaneous Notes* Telephone Encounter - Sonam Lazo - 04/26/2023 9:21 AM EDT Patient is aware he is scheduled for 05/14/23 for a lab draw. * Telephone Encounter - Denisha Duarte RN - 04/25/2023 5:10 PM EDT Clerical: Pt will need labs drawn the week of 05/13. Please call him to schedule. Thanks! Denisha Duarte RN * Telephone Encounter - Denisha Duarte RN - 04/17/2023 12:53 PM EDT Script pended. Denisha Duarte RN * Telephone Encounter - Nick Anderson MD - 04/17/2023 12:16 PM EDT I would recommend KCl 10 mEq 1 daily. Please repeat labs in 4 weeks. * Telephone Encounter - Denisha Duarte RN - 04/17/2023 9:05 AM EDT Pt notified and reports that he is not taking potassium at home. What would you like to prescribe? Denisha Duarte RN * Telephone Encounter - Denisha Duarte RN - 04/17/2023 9:04 AM EDT ----- Message from Nick Anderson MD sent at 04/16/2023 5:19 PM EDT ----- Please inform the patient that his potassium is slightly low at 3.2. Verify if he is taking a supplement. Kana Siddiqui documented in this encounterSelect [facility] [place] Evaluation note* Encounter Date Diagnosis Assessment Notes Treatment Notes Treatment Clinical Notes Mar, Cervical radiculopathy (ICD-10 - M54.12) Will order xray of neck f/e and MRI to rule our any cord compression/involveme nt. Will refer to Pain management Dr Cruz. Will continue with current pharmacological management as prescribed from the emergency room and PCP Dr. Olson. We will add lidocaine patches and OTC Thermapatches. Follow-up in 6 weeks. Medical decision making shows a new problem to me with further workup planned or suggested with the potential for extensive treatment options that were considered with the most applicable given this patient's situation as noted above. Treatment options considered include a combination of physical therapy approaches, pharmacologic management, and interventional procedures. Those most applicable to the patient were discussed at this time. Risk of complications and/or morbidity and mortality is high given that acute and chronic pain poses a threat to life and bodily function if undertreated, poorly treated or with failure to maintain adequate treatment and timely follow up. Given the serious and fluctuating nature of pain with extensive consideration for whenever pain changes, there always remains the possibility of prolonged functional impairment requiring constant patient reassessment and high-level medical decision making. The amount and complexity of data reviewed is high given that patient labs, radiology reports, and other test were obtained, reviewed and summarized as applicable from the physician portal and/or outside medical records. Pertinent positive and negative findings were considered in medical decision-making. Mar, Left hip pain (ICD-10 - M25.552) WIll order xray hips/pelvis Will refer to Dr Mora Mar, History of fusion of cervical spine (ICD-10 - Z98.1) Mar, BMI 29.0-29.9,adult (ICD-10 - Z68.29) Education completed 1lb is 4-6 pounds of pressure on the spine, education on diet, decrease sugar intake. Mar, Depression screening (ICD-10 - Z13.31) PHQ screening completed score 6 mild depression like related to pain and difficulty doing activities of daily living and things that he enjoys. Denies any thoughts of harming self or others. We will follow-up with PCP [facility]'s behavioral health and crisis line [phone] given. Mar, Encounter for tobacco use screening (ICD-10 - Z01.89) Tobacco screening completed never smoker. [employer] Other 06-20-2023 History and physical note* Tova Orlando MD - 04/09/2023 11:30 AM EDT PROCEDURAL SEDATION HISTORY AND PHYSICAL EXAM SERVICE DATE: 04/09/2023 SERVICE TIME: 12:18 PM Subjective HPI: This is a 72 year old male who presents for colonoscopy History of T3 N0 rectal cancer with sphincter involvement Completed MARIZA, last dose last week Last dose Xarelto last Saturday PSHx - lap inguinal hernia (bilat), open appendectomy as child Does not remember last full c-scope, possibly in 2019 PAST ANESTHESIA HISTORY: No history of adverse event PAST MEDICAL HISTORY Diagnosis Date Acute low back pain with possible spinal stenosis of less than six weeks' duration Adenocarcinoma of rectum (HCC) Arthritis Bilateral renal cysts peripelvic BPH with urinary obstruction Cholelithiasis History of kidney stones Non-ischemic cardiomyopathy (HCC) Pulmonary emboli (HCC) 2019 left lower lobe RA (rheumatoid arthritis) (HCC) PAST SURGICAL HISTORY Procedure Laterality Date COLONOSCOPY HAMMERTOE REVISION, ONE TOE HEMORRHOID SURGERY HX HERNIA REPAIR HX LITHOTRIPSY PROC UNILATERAL REMV CATARACT EXTRACAP,INSERT LENS Prior to Admission medications as of 04/09/23 1159 Medication Sig Last Dose Taking cyclobenzaprine (FLEXERIL) 10 mg tablet Take 10 mg by mouth. Past Week Yes predniSONE (DELTASONE) 5 mg tablet Take 5 mg by mouth once daily. 04/09/2023 at 0800 Yes rivaroxaban (XARELTO) 20 mg tablet Take 1 tablet by mouth daily with dinner. 04/05/2023 iv contrast (will be provided with radiology test) MRI Rectum Inject, intravenously, once for 1 dose. No IV access, insert saline lock prior to the beginning of sedation, infusion, injection of imaging exam. Discontinue saline lock post exam. If Pt has a central line or IVAD, may access for administration according to line specific nursing protocol. Once exam is complete flush line and de-access according to line specific nursing protocol in the MR contrast administration guidelines link. Patient not taking: No sig reported Unknown enteric contrast (will be provided with radiology test) MRI RECTUM WO/W. Administer, As Directed One Time Only, via Oral, Rectal, both Oral and Rectal, Enteric Tube, Stoma or Indwelling Catheter, Enteric Contrast as designated per enteric contrast guidelines Patient not taking: No sig reported Unknown rivaroxaban (XARELTO DVT-PE TREAT 30D START) 15 mg (42)- 20 mg (9) DsPk Take 1 tablet (15 mg) by mouth twice daily with food for 21 days. Then take 1 tablet (20 mg) by mouth once daily with food for 9 days. 04/05/2023 calcium carbonate (CALCIUM 600 ORAL) Take 1 tablet by mouth once daily. 04/07/2023 diphenhydrAMINE-Acetaminophen (TYLENOL PM EXTRA STRENGTH) 25-500 mg tab Take 1 tablet by mouth daily at bedtime. Unknown glucosamine/chondr perez A sod (GLUCOSAMINE-CHONDROITIN) 1,500-1,200 mg/30 mL liqd Take by mouth once daily. 04/07/2023 hydroCHLOROthiazide (HYDRODIURIL, ESIDRIX) 12.5 mg capsule Take 12.5 mg by mouth once daily. 04/07/2023 oxyCODONE-acetaminophen (PERCOCET) 5-325 mg tablet Take 1 tablet by mouth every 6 hours as needed for pain. Unknown finasteride (PROSCAR) 5 mg tablet Take by mouth once daily. 04/07/2023 HYDROcodone-acetaminophen (NORCO) 5-325 mg per tablet Take 1 tablet by mouth every 8 hours as needed for pain. Unknown ondansetron (ZOFRAN) 8 mg tablet Take 1 tablet by mouth every 8 hours as needed for nausea/vomiting. Unknown prochlorperazine (COMPAZINE) 10 mg tablet Take 1 tablet by mouth every 6 hours as needed. Unknown acetaminophen 325 mg cap Take by mouth as needed. Unknown valsartan (DIOVAN) 80 mg tablet Take 80 mg by mouth once daily. 04/07/2023 carvedilol (COREG) 6.25 mg tablet Take 6.25 mg by mouth twice daily with meals. 04/07/2023 folic acid 1 mg tablet Take 1 mg by mouth once daily. 04/07/2023 tamsulosin ER (FLOMAX) 0.4 mg cap Take 0.4 mg by mouth twice daily. 04/07/2023 Ascorbic Acid 100 mg tablet Take 100 mg by mouth twice daily. 04/07/2023 ALLERGIES No Known Allergies Objective PHYSICAL EXAM: The remainder of the physical exam is noncontributory. GENERAL: Alert, no distress, cooperative, No Distress ABDOMEN: Abdomen soft, non-tender, nondistended AIRWAY: LUNGS: Nonlabored breathing, no audible wheezing CARDIAC: regular rate Assessment/Plan ASA Class: Active Problems: * No active hospital problems. * Resolved Problems: * No resolved hospital problems. * Provisional Diagnosis/Treatment Plan: Plan for Colonoscopy, possibly polypectomy, possible biopsy Risk and benefits discussed with patient Consent obtained SIGNATURE: Tova Orlando MD PATIENT NAME: Mervat Damon DATE: April 09, 2023 TIME: 12:18 PM documented in this encounterSelect Medical [facility], [place]06-07-2023 Miscellaneous Notes* Telephone Encounter - Columba Jon - 03/27/2023 3:06 PM EDT Looks like patient was rescheduled for a sooner date for MRI * Telephone Encounter - Merlene Noonan Pss - 03/27/2023 1:05 PM EDT LM for pt to call back and try to set up a sooner MRI. * Telephone Encounter - Alpa Carr RN - 03/27/2023 12:47 PM EDT Will see if [place] schedule team can assist patient in getting MRI sooner if insurance allows. * Telephone Encounter - Nick Anderson MD - 03/26/2023 2:53 PM EDT The patient was instructed per my chart to hold Xarelto x2 days prior to procedure, and resume 1 day after if no evidence of bleeding. GRACE Siddiqui * Telephone Encounter - Alpa Carr RN - 03/26/2023 1:53 PM EDT Will reach out to Dr. Nick Anderson MD and nursing team for orders to hold Xarelto x2 days prior to scheduled colonoscopy on 04/09/23. documented in this encounterSelect Medical [facility], [place]06-06-2023 Miscellaneous Notes* Telephone Encounter - Chelsie Ríos RN - 03/26/2023 1:55 PM EDT Returned call. Told him he can either call the office or send a My Chart message and I'd be happy to answer his questions. * Telephone Encounter - Bre Pruitt - 03/26/2023 1:42 PM EDT Patient called with questions about Colonoscopy and MRI would like to speak with someone. PH:[phone] documented in this encounterSelect Medical [facility], [place]06-06-2023 Miscellaneous Notes* Telephone Encounter - Denisha Duarte RN - 03/26/2023 1:36 PM EDT FYI: Pt reports that, due to machine availability, he is unable to have his MRI done until May. Asks if this can be done at one of our local hospitals instead. Advised pt that he will want to run that by Dr Norman since he is the ordering physician. Pt verbalizes understanding. Phone number for Dr Norman's office given to pt. Denisha Duarte RN documented in this encounterSelect Medical [facility], [place]05-31-2023 Miscellaneous Notes* Telephone Encounter - ROYCE Jaffe - 03/20/2023 1:19 PM EDT Results left on patient voicemail. Mervat Damon's Common Hereditary Cancers Panel plus preliminary evidence colorectal cancer genes through [employer] was negative for a pathogenic variant. A variant of uncertain significance (VUS) was detected in [employer] (c.[id number]). A VUS is a genetic variant for which insufficient data exists in order to determine if it is associated with disease (deleterious mutation) or is a normal genetic variant which can occur in the population without disease(benign polymorphism). Please see myChart message for further discussion. Santiago Lema MS, CGC Licensed, Certified Genetic Counselor documented in this encounterSelect Medical [facility], [place]05-30-2023 NoteAd[facility]05-30-2023 History of Present illness Narrative* Nick Anderson MD - 03/19/2023 6:11 AM EDT PATIENT NAME: Mervat Damon DATE: 03/19/2023 PRIMARY CARE PHYSICIAN: Dr. Lorenzo Olson OTHER PHYSICIANS: Dr. Mervat Slaughter, Dr. Thalia Troy, Dr. Kiko Treadwell, Dr. Vásquez, Dr. Mert Krueger, Dr. Shaheed Norman Portions of this encounter note have been copied from the note from 03/05/2023 and has been updated where appropriate, and reflect my current medical decision making from today. CC: This is a 72 year old male with localized rectal cancer, seen for scheduled follow-up and continued treatment. INTERIM HISTORY: The patient tolerated his last cycle of chemotherapy well. Apparently he did excessive yard work on 03/14/2023, and the following day developed an increasing sore throat and cough. Within a few days he developed acute neck pain consistent with muscle spasms. He was seen at the [facility] on 03/18/2023 for evaluation. Work-up including a chest x-ray and neck x-ray was unremarkable. He was empirically given antibiotics with Zithromax, and given pain medications and muscle relaxants. With that his symptoms have improved somewhat. Otherwise he feels fairly well today, and desires to proceed with chemo as planned. MEDICATIONS: Current Outpatient Medications Medication Sig rivaroxaban (XARELTO) 20 mg tablet Take 1 tablet by mouth daily with dinner. iv contrast (will be provided with radiology test) MRI Rectum Inject, intravenously, once for 1 dose. No IV access, insert saline lock prior to the beginning of sedation, infusion, injection of imaging exam. Discontinue saline lock post exam. If Pt has a central line or IVAD, may access for administration according to line specific nursing protocol. Once exam is complete flush line and de-access according to line specific nursing protocol in the MR contrast administration guidelines link. enteric contrast (will be provided with radiology test) MRI RECTUM WO/W. Administer, As Directed One Time Only, via Oral, Rectal, both Oral and Rectal, Enteric Tube, Stoma or Indwelling Catheter, Enteric Contrast as designated per enteric contrast guidelines rivaroxaban (XARELTO DVT-PE TREAT 30D START) 15 mg (42)- 20 mg (9) DsPk Take 1 tablet (15 mg) by mouth twice daily with food for 21 days. Then take 1 tablet (20 mg) by mouth once daily with food for 9 days. calcium carbonate (CALCIUM 600 ORAL) Take 1 tablet by mouth once daily. diphenhydrAMINE-Acetaminophen (TYLENOL PM EXTRA STRENGTH) 25-500 mg tab Take 1 tablet by mouth daily at bedtime. glucosamine/chondr perez A sod (GLUCOSAMINE-CHONDROITIN) 1,500-1,200 mg/30 mL liqd Take by mouth once daily. hydroCHLOROthiazide (HYDRODIURIL, ESIDRIX) 12.5 mg capsule Take 12.5 mg by mouth once daily. oxyCODONE-acetaminophen (PERCOCET) 5-325 mg tablet Take 1 tablet by mouth every 6 hours as needed for pain. finasteride (PROSCAR) 5 mg tablet Take by mouth once daily. HYDROcodone-acetaminophen (NORCO) 5-325 mg per tablet Take 1 tablet by mouth every 8 hours as needed for pain. ondansetron (ZOFRAN) 8 mg tablet Take 1 tablet by mouth every 8 hours as needed for nausea/vomiting. prochlorperazine (COMPAZINE) 10 mg tablet Take 1 tablet by mouth every 6 hours as needed. acetaminophen 325 mg cap Take by mouth as needed. predniSONE (DELTASONE) 5 mg tablet Take 5 mg by mouth once daily. valsartan (DIOVAN) 80 mg tablet Take 80 mg by mouth once daily. carvedilol (COREG) 6.25 mg tablet Take 6.25 mg by mouth twice daily with meals. folic acid 1 mg tablet Take 1 mg by mouth once daily. tamsulosin ER (FLOMAX) 0.4 mg cap Take 0.4 mg by mouth twice daily. Ascorbic Acid 100 mg tablet Take 100 mg by mouth twice daily. No current facility-administered medications for this visit. ALLERGIES: ALLERGIES No Known Allergies PAST MEDICAL HISTORY: PAST MEDICAL HISTORY Diagnosis Date Acute low back pain with possible spinal stenosis of less than six weeks' duration Adenocarcinoma of rectum (HCC) Arthritis Bilateral renal cysts peripelvic BPH with urinary obstruction Cholelithiasis History of kidney stones Non-ischemic cardiomyopathy (HCC) Pulmonary emboli (HCC) 2020 left lower lobe RA (rheumatoid arthritis) (HCC) PAST SURGICAL HISTORY: PAST SURGICAL HISTORY Procedure Laterality Date COLONOSCOPY HAMMERTOE REVISION, ONE TOE HEMORRHOID SURGERY HX HERNIA REPAIR HX LITHOTRIPSY PROC UNILATERAL REMV CATARACT EXTRACAP,INSERT LENS FAMILY HISTORY: FAMILY HISTORY Problem Relation Age of Onset Pancreatic Cancer Mother Cancer Father bladder Liver Cancer Sister Cancer Brother Thyroid and Prostate Colon Cancer No Family History SOCIAL HISTORY: Social History Tobacco Use Smoking status: Never Passive exposure: Never Smokeless tobacco: Never Vaping Use Vaping Use: Never used Substance Use Topics Alcohol use: Yes Comment: rarely Drug use: No REVIEW OF SYSTEMS: General: No weight loss, malaise or fevers. HEENT: Negative for frequent or significant headaches. No changes in hearing or vision, no nose bleeds or other nasal problems. Respiratory: Negative for cough, wheezing or shortness of breath. Cardiovascular: Negative for chest pain, leg swelling or palpitations. GI: Negative for abdominal discomfort, blood in stools or black stools or change in bowel habits. See HPI. : No history of dysuria, frequency or incontinence. Musculoskeletal: Negative for joint pain or swelling, back pain and muscle pain. Skin: Negative for lesions, rash and itching. Hematology/Lymphology: Negative for prolonged bleeding, bruising easily or swollen nodes. Neuro: No history of headaches, syncope, paralysis, seizures or tremors PHYSICAL EXAM: BP 105/70 Pulse 69 Temp 36.2 C (97.2 F) (Temporal) Resp 16 Ht 187.7 cm (6' 1.9 ) Wt 110 kg (242 lb 9.6 oz) SpO2 96% BMI 31.23 kg/m ECOG 0 Exam limited to gross visualization where appropriate due to COVID-19. Gen.: This is an age-appropriate patient in no acute distress. Head: Appears atraumatic with no visible lesions. Eyes: Pupils equally round and reactive to light, extraocular muscles are intact. Neck: Supple. Mouth: Masked. Respiratory: Appears to be respiring comfortably. Neurologic: Nonfocal to gross visualization. Alert and oriented 3. Psychiatric: No evidence of inappropriate anxiety or depression. Skin: Visible areas of skin without rash, lesions, wounds or petechiae. PATHOLOGY: 08/20/2022 Colonoscopic biopsy ([facility]) Adenocarcinoma of colon (mass at anal verge) Mismatch repair gene -normal expression RADIOLOGY/OTHER STUDIES: 01/22/2023 Lower extremity Doppler ([facility]) Extensive deep venous thrombosis of the left leg 12/10/2022 CT chest IMPRESSION: 1. Multiple indeterminate noncalcified pulmonary nodules measuring up to 1 cm are unchanged since 09/11/2022. No enlarging nodule is identified. 2. Unchanged enlarged mediastinal lymph nodes. 3. Please refer to concurrently acquired and separately reported abdomen CT for findings related to the upper abdomen. 12/10/2022 CT abdomen/pelvis IMPRESSION: 1. No evidence of metastatic disease within the abdomen/pelvis. 2. The known rectal neoplasm is not well delineated on this exam. Circumferential urinary bladder wall thickening is likely secondary to treatment-related cystitis. 3. Diverticulosis coli, without associated inflammation. 4. Please refer to concurrently acquired and separately reported chest CT for findings related to the thorax. 10/01/2022 MRI abdomen ([facility]) No MRI evidence of liver lesion 09/25/2022 PET scan IMPRESSION: Head and Neck: * No hypermetabolic foci Chest: * Hypermetabolic mediastinal lymphadenopathy represent inflammatory/infectious etiology versus neoplastic. * Redemonstration of a few pulmonary nodules measuring up to 7 mm which are not well assessed on PET/CT given size, recommend follow-up with chest CT as clinically warranted. Abdomen and pelvis: * Hypermetabolic focus within the distal rectum at the site of previously visualized rectal cancer, better assessed on prior MRI. Musculoskeletal: * No neoplastic hypermetabolic lesions 09/11/2022 MRI pelvis ([facility]) Low rectal neoplasm with suspected early invasion of the internal anal sphincter at the upper canal(MRI category T3b, N0). Few nonenlarged 2 to 3 mm mesorectal lymph nodes. No suspicious lymphadenopathy. 09/11/2022 CT chest, abdomen, pelvis ([facility]) Possible low-attenuation lesion right hepatic lobe under centimeter in size. MRI could better characterize this should be performed with IV contrast. Nodular density within the left adrenal gland which could represent metastasis or adenoma. Multiple noncalcified pulmonary nodules worrisome for metastatic disease. Largest measures approxi-1 cm in the right upper lobe. LABORATORY DATA: Hemoglobin (g/dL) Date Value 03/19/2023 11.6 08/04/2018 14.3 Hematocrit (%) Date Value 03/19/2023 35.0 08/04/2018 43.1 WBC (k/uL) Date Value 03/19/2023 8.19 08/04/2018 6.24 Platelet Count (k/uL) Date Value 03/19/2023 171 08/04/2018 216 CEA 09/05/2022 14.4 09/17/2022 15.7 10/02/2022 14.1 10/29/2022 10.5 11/19/2022 3.7 12/17/2022 1.7 01/22/2023 2.4 ASSESSMENT/PLAN: 1. 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 Pelvic MRI confirmed T3bN0 disease. However, baseline CT scans were abnormal indicating bilateral pulmonary nodules and a suspicious liver lesion. PET scan 09/25/2022 revealed low-level FDG uptake in the mediastinal nodes of unclear significance, but no uptake in the pulmonary nodules. Liver MRI was negative. Mediastinal EBUS biopsy 10/10/2022 was negative. It was felt the patienthad localized disease, and recommendations were to proceed with neoadjuvant chemoradiation. Treatment with capecitabine 825 mg/m2 twice daily concurrent with pelvic radiation given 10/08/2022 through 11/19/2022. With treatment the patient's rectal pain and bleeding resolved. Follow-up CT scans 12/10/2022 stable, with no evidence of metastatic disease. Subsequently the patient continued neoadjuvant treatment with chemotherapy consisting of FOLFOX, with plans to give every 2 weeks x 6 to 8 cycles. Cycle 1 started 12/25/2022. To date he has completed 6cycles. He has had moderate nausea and diarrhea, otherwise tolerated treatment well. The patient will proceed with cycle 7 starting today. We will give IV fluids and IV antiemetics on day 3 when the patient comes in for pump disconnect. To minimize toxicity prior to potential surgerywe elected to stop chemotherapy after this cycle. He plans to follow-up with Dr. Norman on 04/09/2023with a pelvic MRI and colonoscopy. Surgical options will then be discussed based on results. I willsee him back in 4 weeks to help coordinate care. Due to the patient's positive family history for cancer (father - bladder, mother breast and pancreatic, sister liver, brother thryoid and prostate) he has been referred to medical genetics for genomic analysis. 2. Rheumatoid arthritis Diagnosed 2005. Previous treatment has included steroids, Enbrel, and methotrexate. Currently stable on low-dose steroids (prednisone 5 mg daily). Continue management per rheumatology (Dr. Treadwell) 3. Cardiomyopathy History of nonischemic cardiomyopathy. Currently minimally symptomatic. Continue management per PCP/cardiology. 4. History of cervical spinal stenosis Status post cervical spine fusion. Currently asymptomatic. 5. Benign prostatic hypertrophy History of LUTS consistent with BPH. Minimally symptomatic at this time. Continue management per PCP/urology. 6. Hypercoagulable state - history of pulmonary embolism and DVT Pulmonary embolism diagnosed June 2018 after a prolonged car ride. Status post anticoagulationwith Eliquis x 2 years. January 2023 the patient developed acute left leg pain and swelling. Lower extremity Doppler scan 01/22/2023 revealed an extensive DVT of the left leg. Anticoagulation with Xarelto started 01/23/2023. Currently stable. Plans will be to continue anticoagulation indefinitely. Nick Anderson MD documented in this encounter[facility] Hospital Discharge instructions Patient Education 03/18/2023 13:40:26 Muscle Cramps and Spasms Muscle Cramps and Spasms Muscle cramps and spasms occur when a muscle or muscles tighten and you have no control over this tightening (involuntary muscle contraction). They are a common problem and can develop in any muscle.The most common place is in the calf muscles of the leg. Muscle cramps and muscle spasms are both involuntary muscle contractions, but there are some differences between the two: Muscle cramps are painful. They come and go and may last for a few seconds or up to 15 minutes. Muscle cramps are often more forceful and last longer than muscle spasms. Muscle spasms may or may not be painful. They may also last just a few seconds or much longer. Certain medical conditions, such as diabetes or Parkinson's disease, can make it more likely to develop cramps or spasms. However, cramps or spasms are usually not caused by a serious underlying problem. Common causes include: Doing more physical work or exercise than your body is ready for (overexertion). Overuse from repeating certain movements too many times. Remaining in a certain position for a long period of time. Improper preparation, form, or technique while playing a sport or doing an activity. Dehydration. Injury. Side effects of some medicines. Abnormally low levels of the salts and minerals in your blood (electrolytes), especially potassium and calcium. This could happen if you are taking water pills (diuretics) or if you are . In many cases, the cause of muscle cramps or spasms is not known. Follow these instructions at home: Managing pain and stiffness Try massaging, stretching, and relaxing the affected muscle. Do this for several minutes at a time. If directed, apply heat to tight or tense muscles as often as told by your health care provider. Use the heat source that your health care provider recommends, such as a moist heat pack or a heating pad. ?Place a towel between your skin and the heat source. ?Leave the heat on for 20 30 minutes. ?Remove the heat if your skin turns bright red. This is especially important if you are unable to feel pain, heat, or cold. You may have a greater risk of getting burned. If directed, put ice on the affected area. This may help if you are sore or have pain after a crampor spasm. ?Put ice in a plastic bag. ?Place a towel between your skin and the bag. ?Leave the ice on for 20 minutes, 2 3 times a day. Try taking hot showers or baths to help relax tight muscles. Eating and drinking Drink enough fluid to keep your urine pale yellow. Staying well hydrated may help prevent cramps orspasms. Eat a healthy diet that includes plenty of nutrients to help your muscles function. A healthy diet includes fruits and vegetables, lean protein, whole grains, and low-fat or nonfat dairy products. General instructions If you are having frequent cramps, avoid intense exercise for several days. Take fbzp-wqa-hnzrero and prescription medicines only as told by your health care provider. Pay attention to any changes in your symptoms. Keep all follow-up visits as told by your health care provider. This is important. Contact a health care provider if: Your cramps or spasms get more severe or happen more often. Your cramps or spasms do not improve over time. Summary Muscle cramps and spasms occur when a muscle or muscles tighten and you have no control over this tightening (involuntary muscle contraction). The most common place for cramps or spasms to occur is in the calf muscles of the leg. Massaging, stretching, and relaxing the affected muscle may relieve the cramp or spasm. Drink enough fluid to keep your urine pale yellow. Staying well hydrated may help prevent cramps orspasms. This information is not intended to replace advice given to you by your health care provider. Make sure you discuss any questions you have with your health care provider. Document Revised: 04/27/2022 Document Reviewed: 04/27/2022 [employer] Patient Education 2022 [employer]. 03/18/2023 13:40:26 Community-Acquired Pneumonia, Adult Community-Acquired Pneumonia, Adult Pneumonia is a lung infection that causes inflammation and the buildup of mucus and fluids in the lungs. This may cause coughing and difficulty breathing. Community-acquired pneumonia is pneumonia that develops in people who are not, and have not recently been, in a hospital or other health care facility. Usually, pneumonia develops as a result of an illness that is caused by a virus, such as the commoncold and the flu (influenza). It can also be caused by bacteria or fungi. While the common cold andinfluenza can pass from person to person (are contagious), pneumonia itself is not considered contagious. What are the causes? This condition may be caused by: Viruses. Bacteria. Fungi, such as molds or mushrooms. What increases the risk? The following factors may make you more likely to develop this condition: Having certain medical conditions, such as: ?A long-term (chronic) disease, which may include chronic obstructive pulmonary disease (COPD), asthma, heart failure, cystic fibrosis, diabetes, kidney disease, sickle cell disease, and human immunodeficiency virus (HIV). ?A condition that increases the risk of breathing in (aspirating) mucus and other fluids from your mouth and nose. ?A weakened body defense system (immune system). Having had your spleen removed (splenectomy). The spleen is the organ that helps fight germs and infections. Not cleaning your teeth and gums well (poor dental hygiene). Using tobacco products. Traveling to places where germs that cause pneumonia are present. Being near certain animals, or animal habitats, that have germs that cause pneumonia. Being older than 65 years of age. What are the signs or symptoms? Symptoms of this condition include: A dry cough or a wet (productive) cough. A fever. Sweating or chills. Chest pain, especially when breathing deeply or coughing. Fast breathing, difficulty breathing, or shortness of breath. Tiredness (fatigue). Muscle aches. How is this diagnosed? This condition may be diagnosed based on your medical history or a physical exam. You may also havetests, including: Chest X-rays. Tests of the level of oxygen and other gases in your blood. Tests of: ?Your blood. ?Mucus from your lungs (sputum). ?Fluid around your lungs (pleural fluid). ?Your urine. If your pneumonia is severe, other tests may be done to learn more about the cause. How is this treated? Treatment for this condition depends on many factors, such as the cause of your pneumonia, your medicines, and other medical conditions that you have. For most adults, pneumonia may be treated at home. In some cases, treatment must happen in a hospital and may include: Medicines that are given by mouth (orally) or through an IV, including: ?Antibiotic medicines, if bacteria caused the pneumonia. ?Medicines that kill viruses (antiviral medicines), if a virus caused the pneumonia. Oxygen therapy. Severe pneumonia, although rare, may require the following treatments: Mechanical ventilation.This procedure uses a machine to help you breathe if you cannot breathe wellon your own or maintain a safe level of blood oxygen. Thoracentesis. This procedure removes any buildup of pleural fluid to help with breathing. Follow these instructions at home: Medicines Take aehm-hrl-opgfgeu and prescription medicines only as told by your health care provider. Take cough medicine only if you have trouble sleeping. Cough medicine can prevent your body from removing mucus from your lungs. If you were prescribed an antibiotic medicine, take it as told by your health care provider. Do notstop taking the antibiotic even if you start to feel better. Lifestyle Do not drink alcohol. Do not use any products that contain nicotine or tobacco, such as cigarettes, e- cigarettes, and chewing tobacco. If you need help quitting, ask your health care provider. Eat a healthy diet. This includes plenty of vegetables, fruits, whole grains, low-fat dairy products, and lean protein. General instructions Rest a lot and get at least 8 hours of sleep each night. Sleep in a partly upright position at night. Place a few pillows under your head or sleep in a reclining chair. Return to your normal activities as told by your health care provider. Ask your health care provider what activities are safe for you. Drink enough fluid to keep your urine pale yellow. This helps to thin the mucus in your lungs. If your throat is sore, gargle with a salt water mixture 3 4 times a day or as needed. To make a salt water mixture, completely dissolve 1 tsp (3 6 g) of salt in 1 cup (237 mL) of warm water. Keep all follow-up visits as told by your health care provider. This is important. How is this prevented? You can lower your risk of developing community-acquired pneumonia by: Getting the pneumonia vaccine. There are different types and schedules of pneumonia vaccines. Ask your health care provider which option is best for you. Consider getting the pneumonia vaccine if: ?You are older than 65 years of age. ?You are 19 65 years of age and are receiving cancer treatment, have chronic lung disease, or have other medical conditions that affect your immune system. Ask your health care provider if this applies to you. Getting your influenza vaccine every year. Ask your health care provider which type of vaccine is best for you. Getting regular dental checkups. Washing your hands often with soap and water for at least 20 seconds. If soap and water are not available, use hand hand candy dipper. Contact a health care provider if you have: A fever. Trouble sleeping because you cannot control your cough with cough medicine. Get help right away if: Your shortness of breath becomes worse. Your chest pain increases. Your sickness becomes worse, especially if you are an older adult or have a weak immune system. You cough up blood. These symptoms may represent a serious problem that is an emergency. Do not wait to see if the symptoms will go away. Get medical help right away. Call your local emergency services (911 in the [place] Do not drive yourself to the hospital. Summary Pneumonia is an infection of the lungs. Community-acquired pneumonia develops in people who have not been in the hospital. It can be causedby bacteria, viruses, or fungi. This condition may be treated with antibiotics or antiviral medicines. Severe pneumonia may require a hospital stay and treatment to help with breathing. This information is not intended to replace advice given to you by your health care provider. Make sure you discuss any questions you have with your health care provider. Document Revised: 07/19/2020 Document Reviewed: 07/19/2020 [employer] Patient Education 2022 [employer]. Follow Up Care 03/18/2023 10:25:52 With:Lorenzo OLSON Address: [address] [place] [address] Business (1) When:03/21/2023 13:34:29 Comments:Return to the emergency room if your shortness of breath gets worse, your neck pain gets worse or any new symptoms. Be aware that both Coggon and Flexeril can cause drowsiness. [facility]05-29-2023 Evaluation + Plan noteExtracted from: Title:ED Note Author:Corrina Rogers, Yuridia Pineda te:03/18/23 1. Pneumonia (J18.9: Pneumon ia, unspecified organism) 2. Neck muscle spasm (M62.838: Other muscle spasm) Ordered: acetaminophen-hydrocodone, 1 tab(s), Oral, q6hr as needed for pain, 10 tab(s), Refill(s) 0, [facility] #[id number], 188, cm, 03/18/23 10:50:00 EDT, Height/Length Dosing, 111, kg, 03/18/23 10:50:00 EDT, Weight Dosing Orders: acetaminophen-oxycodone, 1 tab(s), Tab, Oral, Once, Stop date 03/18/23 11:55:00 EDT, STAT, Start date 03/18/23 11:55:00 EDT azithromycin, = 1 packet(s), Oral, As Directed, as directed on package labeling, X 5 day(s), # 6 tab(s), Refills(s) 0, Pharmacy: [facility] #[id number], 188, cm, 03/18/23 10:50:00 EDT, Height/Length Dosing, 111, kg, 03/18/23 10:50:00 EDT, Weight Dosing cyclobenzaprine, 10 mg = 1 tab(s), Oral, TID, PRN for spasm, # 20 tab(s), Refills(s) 0, Pharmacy: [facility] #[id number], 188, cm, 03/18/23 10:50:00 EDT, Height/Length Dosing, 111, kg, 03/18/23 10:50:00 EDT, Weight Dosing ketorolac, 30 mg = 1 mL, Injection, IntraMuscular, Once, Stop date 03/18/23 11:55:00 EDT, STAT, Start date 03/18/23 11:55:00 EDT, 03/18/23 11:55:00 EDT orphenadrine, 60 mg = 2 mL, Injection, IntraMuscular, Once, Stop date 03/18/23 11:56:00 EDT, STAT, Start date 03/18/23 11:56:00 EDT, 03/18/23 11:56:00 EDT XR Chest 2 Views XR Spine Cervical 4 or 5 Views Future Appointments Appointment Date:04/29/2023 08:45:00 AM Scheduled Provider:Cyndee SANCHEZ CNP Location:[facility] Appointment Type:Cardiology Follow Up ([facility]) Future Scheduled Tests Radiology* XR Abdomen 1 View 09/20/22 [facility] History of Present illness Narrative* G Saeed Vásquez MD - 03/13/2023 10:31 AM EDT Radiation Oncology - Follow Up Note PATIENT NAME: Mervat Damon PATIENT DIAGNOSIS: Adenocarcinoma of the lower rectum MRI staged [id number] RADIATION SUMMARY: DATES OF TREATMENT: 10/08/2022- 11/19/2022 AREA TREATED: rectum DELIVERED DOSE: Area: pelvis rectum 4500 cGy in 25 fractions, 3 Arcs, IMRT, 10 MV with daily CBCT DELIVERED DOSE: Area: rectal boost 540 cGy in 3 fractions, 2 Arcs, IMRT, 10MV with daily CBCT TOTAL: 5040 cGy in 28 fractions ELAPSED TIME: 42 days. INTERVAL HISTORY: Overall doing well. Near full energy level. No significant rectal complaints. No blood per rectum. Appetite good. ALLERGIES No Known Allergies MEDICATIONS: rivaroxaban (XARELTO) 20 mg tablet Take 1 tablet by mouth daily with dinner. iv contrast (will be provided with radiology test) MRI Rectum Inject, intravenously, once for 1 dose. No IV access, insert saline lock prior to the beginning of sedation, infusion, injection of imaging exam. Discontinue saline lock post exam. If Pt has a central line or IVAD, may access for administration according to line specific nursing protocol. Once exam is complete flush line and de-access according to line specific nursing protocol in the MR contrast administration guidelines link. enteric contrast (will be provided with radiology test) MRI RECTUM WO/W. Administer, As Directed One Time Only, via Oral, Rectal, both Oral and Rectal, Enteric Tube, Stoma or Indwelling Catheter, Enteric Contrast as designated per enteric contrast guidelines rivaroxaban (XARELTO DVT-PE TREAT 30D START) 15 mg (42)- 20 mg (9) DsPk Take 1 tablet (15 mg) by mouth twice daily with food for 21 days. Then take 1 tablet (20 mg) by mouth once daily with food for 9 days. calcium carbonate (CALCIUM 600 ORAL) Take 1 tablet by mouth once daily. diphenhydrAMINE-Acetaminophen (TYLENOL PM EXTRA STRENGTH) 25-500 mg tab Take 1 tablet by mouth daily at bedtime. glucosamine/chondr perez A sod (GLUCOSAMINE-CHONDROITIN) 1,500-1,200 mg/30 mL liqd Take by mouth once daily. hydroCHLOROthiazide (HYDRODIURIL, ESIDRIX) 12.5 mg capsule Take 12.5 mg by mouth once daily. oxyCODONE-acetaminophen (PERCOCET) 5-325 mg tablet Take 1 tablet by mouth every 6 hours as needed for pain. finasteride (PROSCAR) 5 mg tablet Take by mouth once daily. HYDROcodone-acetaminophen (NORCO) 5-325 mg per tablet Take 1 tablet by mouth every 8 hours as needed for pain. ondansetron (ZOFRAN) 8 mg tablet Take 1 tablet by mouth every 8 hours as needed for nausea/vomiting. prochlorperazine (COMPAZINE) 10 mg tablet Take 1 tablet by mouth every 6 hours as needed. acetaminophen 325 mg cap Take by mouth as needed. predniSONE (DELTASONE) 5 mg tablet Take 5 mg by mouth once daily. valsartan (DIOVAN) 80 mg tablet Take 80 mg by mouth once daily. carvedilol (COREG) 6.25 mg tablet Take 6.25 mg by mouth twice daily with meals. folic acid 1 mg tablet Take 1 mg by mouth once daily. tamsulosin ER (FLOMAX) 0.4 mg cap Take 0.4 mg by mouth twice daily. Ascorbic Acid 100 mg tablet Take 100 mg by mouth twice daily. REVIEW OF SYSTEMS: GENERAL: SEE HPI. HEENT: Negative for sudden vision or hearing changes. NECK: Negative for masses in the neck. RESPIRATORY: Negative for cough or shortness of breath. CARDIAC: Negative for chest pain, palpitations, murmurs, or syncopal episodes. GI: SEE HPI. : Negative for dysuria, hematuria, urgency, frequency or incontinence. MUSCULOSKELETAL: Negative for limitations in movement, pain, or swelling. NEURO: Negative for dizziness, headache, weakness or numbness. HEMATOLOGIC: Negative for bleeding or easy bruising. SKIN: Negative for rashes or other skin changes. PHYSICAL EXAM: VS: BP 106/70 Pulse 60 Temp (!) 35.9 C (96.7 F) Resp 18 Wt 108.4 kg (239 lb) SpO2 98% BMI 30.77 kg/m KPS: 100 General Appearance: Alert and oriented. No acute distress. HEENT: NCAT. Sclera anicteric. PERRL. EOMI. Neck: Normal ROM. No palpable cervical or supraclavicular adenopathy. Abdomen: Soft. Nontender. Nondistended. Perirectal area with mild in changes no fullness induration or desquamation. Musculoskeletal: No edema. Normal ROM in extremities. No bone or spine tenderness. Neuro: Speech fluent. Gait normal. No focal deficits. Skin: No rashes noted Lymphatics: No palpable lymphadenopathy. ASSESSMENT AND PLAN: Patient doing very well . He is completing neoadjuvant portion of treatment and has MRI scheduled after that with follow-up with Dr. Anderson and Dr. Norman. At this point no role for radiation. Doing well without significant postradiation issues. Patient will come back t to see me on an as-needed basis. Signed by: Dania Vásquez MD cc: Lorenzo Olson [address] [place] [address] No referring provider defined for this encounter. documented in this encounter[facility] [place] NoteHNO ID: [id number] Author: Emilia Olivas RN Service: ? Author Type: Registered Nurse Type: Progress Notes Filed: 03/05/2023 12:55 PM Note Text: HM back to tx room to give pt information on potassium rich diet. [facility] Olivas [facility] History of Present illness Narrative* Emilia Olivas RN - 03/05/2023 9:50 AM EDT HM back to tx room to give pt information on potassium rich diet. Emilia Olivas RN documented in this encounterSelect [facility] [place] Miscellaneous Notes* Telephone Encounter - Samantha Hi RPh - 02/26/2023 12:19 PM EDT Approved for free Xarelto from [employer] through 10/20/23. Prescriptions are filled at their internal pharmacy [facility] phone [phone] documented in this encounterSelect [facility] [place]-02-[facility] History of Present illness Narrative* Nick Anderson MD - 02/19/2023 7:22 AM EDT PATIENT NAME: Mervat Damon DATE: 02/19/2023 PRIMARY CARE PHYSICIAN: Dr. Lorenzo Olson OTHER PHYSICIANS: Dr. Mervat Slaughter, Dr. Thalia Troy, Dr. Kiko Treadwell, Dr. Vásquez, Dr. Mert Krueger, Dr. Shaheed Norman Portions of this encounter note have been copied from my note from 02/05/2023 and has been updated where appropriate, and reflect my current medical decision making from today. CC: This is a 72 year old male with localized rectal cancer, seen for scheduled follow-up. INTERIM HISTORY: The patient has completed 4 cycles of FOLFOX, and is tolerating treatment well. 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 No further rectal bleeding or other GI symptoms. 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 Since his last visit he was seen by Dr. Norman, with plans to restage after chemotherapy is completed. Based on findings surgical resection will then be discussed. MEDICATIONS: Current Outpatient Medications Medication Sig iv contrast (will be provided with radiology test) MRI Rectum Inject, intravenously, once for 1 dose. No IV access, insert saline lock prior to the beginning of sedation, infusion, injection of imaging exam. Discontinue saline lock post exam. If Pt has a central line or IVAD, may access for administration according to line specific nursing protocol. Once exam is complete flush line and de-access according to line specific nursing protocol in the MR contrast administration guidelines link. enteric contrast (will be provided with radiology test) MRI RECTUM WO/W. Administer, As Directed One Time Only, via Oral, Rectal, both Oral and Rectal, Enteric Tube, Stoma or Indwelling Catheter, Enteric Contrast as designated per enteric contrast guidelines rivaroxaban (XARELTO DVT-PE TREAT 30D START) 15 mg (42)- 20 mg (9) DsPk Take 1 tablet (15 mg) by mouth twice daily with food for 21 days. Then take 1 tablet (20 mg) by mouth once daily with food for 9 days. calcium carbonate (CALCIUM 600 ORAL) Take 1 tablet by mouth once daily. diphenhydrAMINE-Acetaminophen (TYLENOL PM EXTRA STRENGTH) 25-500 mg tab Take 1 tablet by mouth daily at bedtime. glucosamine/chondr perez A sod (GLUCOSAMINE-CHONDROITIN) 1,500-1,200 mg/30 mL liqd Take by mouth once daily. hydroCHLOROthiazide (HYDRODIURIL, ESIDRIX) 12.5 mg capsule Take 12.5 mg by mouth once daily. oxyCODONE-acetaminophen (PERCOCET) 5-325 mg tablet Take 1 tablet by mouth every 6 hours as needed for pain. finasteride (PROSCAR) 5 mg tablet Take by mouth once daily. HYDROcodone-acetaminophen (NORCO) 5-325 mg per tablet Take 1 tablet by mouth every 8 hours as needed for pain. ondansetron (ZOFRAN) 8 mg tablet Take 1 tablet by mouth every 8 hours as needed for nausea/vomiting. prochlorperazine (COMPAZINE) 10 mg tablet Take 1 tablet by mouth every 6 hours as needed. acetaminophen 325 mg cap Take by mouth as needed. predniSONE (DELTASONE) 5 mg tablet Take 5 mg by mouth once daily. valsartan (DIOVAN) 80 mg tablet Take 80 mg by mouth once daily. carvedilol (COREG) 6.25 mg tablet Take 6.25 mg by mouth twice daily with meals. folic acid 1 mg tablet Take 1 mg by mouth once daily. tamsulosin ER (FLOMAX) 0.4 mg cap Take 0.4 mg by mouth twice daily. Ascorbic Acid 100 mg tablet Take 100 mg by mouth twice daily. No current facility-administered medications for this visit. ALLERGIES: ALLERGIES No Known Allergies PAST MEDICAL HISTORY: PAST MEDICAL HISTORY Diagnosis Date Acute low back pain with possible spinal stenosis of less than six weeks' duration Adenocarcinoma of rectum (HCC) Arthritis Bilateral renal cysts peripelvic BPH with urinary obstruction Cholelithiasis History of kidney stones Non-ischemic cardiomyopathy (HCC) Pulmonary emboli (HCC) 2020 left lower lobe RA (rheumatoid arthritis) (HCC) PAST SURGICAL HISTORY: PAST SURGICAL HISTORY Procedure Laterality Date COLONOSCOPY HAMMERTOE REVISION, ONE TOE HEMORRHOID SURGERY HX HERNIA REPAIR HX LITHOTRIPSY PROC UNILATERAL REMV CATARACT EXTRACAP,INSERT LENS FAMILY HISTORY: FAMILY HISTORY Problem Relation Age of Onset Pancreatic Cancer Mother Cancer Father bladder Liver Cancer Sister Cancer Brother Thyroid and Prostate Colon Cancer No Family History SOCIAL HISTORY: Social History Tobacco Use Smoking status: Never Passive exposure: Never Smokeless tobacco: Never Vaping Use Vaping Use: Never used Substance Use Topics Alcohol use: Yes Comment: rarely Drug use: No REVIEW OF SYSTEMS: General: No weight loss, malaise or fevers. HEENT: Negative for frequent or significant headaches. No changes in hearing or vision, no nose bleeds or other nasal problems. Respiratory: Negative for cough, wheezing or shortness of breath. Cardiovascular: Negative for chest pain, leg swelling or palpitations. GI: Negative for abdominal discomfort, blood in stools or black stools or change in bowel habits. See HPI. : No history of dysuria, frequency or incontinence. Musculoskeletal: Negative for joint pain or swelling, back pain and muscle pain. Skin: Negative for lesions, rash and itching. Hematology/Lymphology: Negative for prolonged bleeding, bruising easily or swollen nodes. Neuro: No history of headaches, syncope, paralysis, seizures or tremors PHYSICAL EXAM: BP 107/88 Pulse 61 Temp 36.3 C (97.3 F) (Temporal) Resp 18 Ht 187.7 cm (6' 1.9 ) Wt 111.4 kg (245 lb 9.6 oz) SpO2 96% BMI 31.62 kg/m ECOG 0 Exam limited to gross visualization where appropriate due to COVID-19. Gen.: This is an age-appropriate patient in no acute distress. Head: Appears atraumatic with no visible lesions. Eyes: Pupils equally round and reactive to light, extraocular muscles are intact. Neck: Supple. Mouth: Masked. Respiratory: Appears to be respiring comfortably. Neurologic: Nonfocal to gross visualization. Alert and oriented 3. Psychiatric: No evidence of inappropriate anxiety or depression. Skin: Visible areas of skin without rash, lesions, wounds or petechiae. PATHOLOGY: 08/20/2022 Colonoscopic biopsy ([facility] [place]) Adenocarcinoma of colon (mass at anal verge) Mismatch repair gene -normal expression RADIOLOGY/OTHER STUDIES: 01/22/2023 Lower extremity Doppler ([facility] [place]) Extensive deep venous thrombosis of the left leg 12/10/2022 CT chest IMPRESSION: 1. Multiple indeterminate noncalcified pulmonary nodules measuring up to 1 cm are unchanged since 09/11/2022. No enlarging nodule is identified. 2. Unchanged enlarged mediastinal lymph nodes. 3. Please refer to concurrently acquired and separately reported abdomen CT for findings related to the upper abdomen. 12/10/2022 CT abdomen/pelvis IMPRESSION: 1. No evidence of metastatic disease within the abdomen/pelvis. 2. The known rectal neoplasm is not well delineated on this exam. Circumferential urinary bladder wall thickening is likely secondary to treatment-related cystitis. 3. Diverticulosis coli, without associated inflammation. 4. Please refer to concurrently acquired and separately reported chest CT for findings related to the thorax. 10/01/2022 MRI abdomen ([facility] [place]) No MRI evidence of liver lesion 09/25/2022 PET scan IMPRESSION: Head and Neck: * No hypermetabolic foci Chest: * Hypermetabolic mediastinal lymphadenopathy represent inflammatory/infectious etiology versus neoplastic. * Redemonstration of a few pulmonary nodules measuring up to 7 mm which are not well assessed on PET/CT given size, recommend follow-up with chest CT as clinically warranted. Abdomen and pelvis: * Hypermetabolic focus within the distal rectum at the site of previously visualized rectal cancer, better assessed on prior MRI. Musculoskeletal: * No neoplastic hypermetabolic lesions 09/11/2022 MRI pelvis ([facility]) Low rectal neoplasm with suspected early invasion of the internal anal sphincter at the upper canal(MRI category T3b, N0). Few nonenlarged 2 to 3 mm mesorectal lymph nodes. No suspicious lymphadenopathy. 09/11/2022 CT chest, abdomen, pelvis ([facility]) Possible low-attenuation lesion right hepatic lobe under centimeter in size. MRI could better characterize this should be performed with IV contrast. Nodular density within the left adrenal gland which could represent metastasis or adenoma. Multiple noncalcified pulmonary nodules worrisome for metastatic disease. Largest measures approxi-1 cm in the right upper lobe. LABORATORY DATA: Hemoglobin (g/dL) Date Value 02/19/2023 11.8 08/04/2018 14.3 Hematocrit (%) Date Value 02/19/2023 35.5 08/04/2018 43.1 WBC (k/uL) Date Value 02/19/2023 6.21 08/04/2018 6.24 Platelet Count (k/uL) Date Value 02/19/2023 186 08/04/2018 216 CEA 09/05/2022 14.4 09/17/2022 15.7 10/02/2022 14.1 10/29/2022 10.5 11/19/2022 3.7 12/17/2022 1.7 ASSESSMENT/PLAN: 1. 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 Pelvic MRI confirmed T3bN0 disease. However, baseline CT scans were abnormal indicating bilateral pulmonary nodules and a suspicious liver lesion. PET scan 09/25/2022 revealed low-level FDG uptake in the mediastinal nodes of unclear significance, but no uptake in the pulmonary nodules. Liver MRI was negative. Mediastinal EBUS biopsy 10/10/2022 was negative. It was felt the patienthad localized disease, and recommendations were to proceed with neoadjuvant chemoradiation. Treatment with capecitabine 825 mg/m2 twice daily concurrent with pelvic radiation given 10/08/2022 through 11/19/2022. With treatment the patient's rectal pain and bleeding resolved. Follow-up CT scans 12/10/2022 stable, with no evidence of metastatic disease. Subsequently the patient continued neoadjuvant treatment with chemotherapy consisting of FOLFOX, with plans to give every 2 weeks x 6 to 8 cycles. Cycle 1 started 12/25/2022. To date he has completed 4cycles. He has had moderate nausea and diarrhea, otherwise tolerated treatment well. We will proceed with cycle 5 starting today. We will plan to give IV fluids and IV antiemetics on day 3. He'll return in 2 weeks for his next cycle. After completing neoadjuvant chemotherapy the patient will be referred back to colorectal surgery (Dr. Norman) for restaging to include pelvic MRI and flex sig. Based on these results surgical optionswill be discussed. Due to the patient's positive family history for cancer (father - bladder, mother breast and pancreatic, sister liver, brother thryoid and prostate) he has been referred to medical genetics for genomic analysis. 2. Rheumatoid arthritis Diagnosed 2005. Previous treatment has included steroids, Enbrel, and methotrexate. Currently stable on low-dose steroids (prednisone 5 mg daily). Continue management per rheumatology (Dr. Treadwell) 3. Cardiomyopathy History of nonischemic cardiomyopathy. Currently minimally symptomatic. Continue management per PCP/cardiology. 4. History of cervical spinal stenosis Status post cervical spine fusion. Currently asymptomatic. 5. Benign prostatic hypertrophy History of LUTS consistent with BPH. Minimally symptomatic at this time. Continue management per PCP/urology. 6. Hypercoagulable state - history of pulmonary embolism and DVT Pulmonary embolism diagnosed June 2018 after a prolonged car ride. Status post anticoagulationwith Eliquis x 2 years. January 2023 the patient developed acute left leg pain and swelling. Lower extremity Doppler scan 01/22/2023 revealed an extensive DVT of the left leg. Anticoagulation with Xarelto started 01/23/2023. Currently stable. Plans will be to continue anticoagulation indefinitely. Nick Anderson MD documented in this encounterSelect [facility] [place] Note[facility]04-20-[facility] Nurse Note* Alpa Carr RN - 02/07/2023 2:36 PM EDT What is the reason for your visit today? New patient consult for rectal cancer Who is your referring physician? Dr. Krueger. Are you having poor oral intake? NO Have you had unintentional weight loss of 15 lbs/7 Kg in the last 3-6 months? NO Bowels: diarrhea or soft Wound: none Temperature: No Drains: No documented in this encounterSelect [facility] [place]04-20-2023 History of Present illness Narrative* Deborah Norman MD - 02/07/2023 2:20 PM EDT COLORECTAL SURGERY February 06, 2023 Mervat Damon 72 year old This consult was requested by Dr. Krueger and my final recommendations will be communicated to the requesting health care provider by way of the shared medical record for internal providers or letter via the [employer] for external providers. Chief Complaint: rectal cancer History of Present Illness: Mervat Damon is a 72 year old male presents today for evaluation of rectal cancer. Oncology - Dr. Anderson CT A/P 12/10/22 Impression: 1. No evidence of metastatic disease within the abdomen/pelvis. 2. The known rectal neoplasm is not well delineated on this exam. Circumferential urinary bladder wall thickening is likely secondary to treatment-related cystitis. 3. Diverticulosis coli, without associated inflammation. 4. Please refer to concurrently acquired and separately reported chest CT for findings related to the thorax. CT chest 12/10/22 Impression: 1. Multiple indeterminate noncalcified pulmonary nodules measuring up to 1 cm are unchanged since 09/11/2022. No enlarging nodule is identified. 2. Unchanged enlarged mediastinal lymph nodes. 3. Please refer to concurrently acquired and separately reported abdomen CT for findings related tothe upper abdomen. PET/CT 09/25/22 IMPRESSION: Head and Neck: * No hypermetabolic foci Chest: * Hypermetabolic mediastinal lymphadenopathy represent inflammatory/infectious etiology versus neoplastic. * Redemonstration of a few pulmonary nodules measuring up to 7 mm which are not well assessed on PET/CT given size, recommend follow-up with chest CT as clinically warranted. Abdomen and pelvis: * Hypermetabolic focus within the distal rectum at the site of previously visualized rectal cancer, better assessed on prior MRI. Musculoskeletal: * No neoplastic hypermetabolic lesions MRI pelvis 09/11/22 - OSH 1.MR stage: T 3, N (-) , Mx. Somewhat limited due to lack of contrast. 2.Low rectal neoplasm with suspected early invasion of the internal anal sphincter at the upper canal. Complete details are provided in the findings section. Sigmoidoscopy 08/20/22 - Dr. Slaughter Ulcerated firm mass in the lateral rectal vault at the anal verge. Mass encompassing approximately 25-3-% of the circumference of the anus right at the anal verge. Mass was friable and firm extendingapproximately 3-4 cm in to the anal canal. Multiple biopsies obtained. 72-year-old male with the above-stated history. He was diagnosed with a T3N0 distal rectal cancer on the internal anal sphincter muscle undergoing long course chemoradiation and now consolidation chemotherapy elsewhere. He had his surgical care established in [place] but wishes to transfer to [place]. Heis doing well with chemotherapy so far. No issues PAST MEDICAL HISTORY Diagnosis Date Acute low back pain with possible spinal stenosis of less than six weeks' duration Adenocarcinoma of rectum (HCC) Arthritis Bilateral renal cysts peripelvic BPH with urinary obstruction Cholelithiasis History of kidney stones Non-ischemic cardiomyopathy (HCC) Pulmonary emboli (HCC) 2020 left lower lobe RA (rheumatoid arthritis) (HCC) PAST SURGICAL HISTORY Procedure Laterality Date COLONOSCOPY HAMMERTOE REVISION, ONE TOE HEMORRHOID SURGERY HX HERNIA REPAIR HX LITHOTRIPSY PROC UNILATERAL REMV CATARACT EXTRACAP,INSERT LENS Current Outpatient Medications Medication Sig Dispense Refill rivaroxaban (XARELTO DVT-PE TREAT 30D START) 15 mg (42)- 20 mg (9) DsPk Take 1 tablet (15 mg) by mouth twice daily with food for 21 days. Then take 1 tablet (20 mg) by mouth once daily with food for 9 days. 51 tablet 0 calcium carbonate (CALCIUM 600 ORAL) Take 1 tablet by mouth once daily. diphenhydrAMINE-Acetaminophen (TYLENOL PM EXTRA STRENGTH) 25-500 mg tab Take 1 tablet by mouth daily at bedtime. glucosamine/chondr perez A sod (GLUCOSAMINE-CHONDROITIN) 1,500-1,200 mg/30 mL liqd Take by mouth once daily. hydroCHLOROthiazide (HYDRODIURIL, ESIDRIX) 12.5 mg capsule Take 12.5 mg by mouth once daily. oxyCODONE-acetaminophen (PERCOCET) 5-325 mg tablet Take 1 tablet by mouth every 6 hours as needed for pain. 100 tablet 0 finasteride (PROSCAR) 5 mg tablet Take by mouth once daily. HYDROcodone-acetaminophen (NORCO) 5-325 mg per tablet Take 1 tablet by mouth every 8 hours as needed for pain. 30 tablet 0 ondansetron (ZOFRAN) 8 mg tablet Take 1 tablet by mouth every 8 hours as needed for nausea/vomiting. 90 tablet 1 prochlorperazine (COMPAZINE) 10 mg tablet Take 1 tablet by mouth every 6 hours as needed. 100 tablet 1 acetaminophen 325 mg cap Take by mouth as needed. predniSONE (DELTASONE) 5 mg tablet Take 5 mg by mouth once daily. valsartan (DIOVAN) 80 mg tablet Take 80 mg by mouth once daily. carvedilol (COREG) 6.25 mg tablet Take 6.25 mg by mouth twice daily with meals. folic acid 1 mg tablet Take 1 mg by mouth once daily. tamsulosin ER (FLOMAX) 0.4 mg cap Take 0.4 mg by mouth twice daily. Ascorbic Acid 100 mg tablet Take 100 mg by mouth twice daily. No current facility-administered medications for this visit. ALLERGIES No Known Allergies FAMILY HISTORY Problem Relation Age of Onset Pancreatic Cancer Mother Cancer Father bladder Liver Cancer Sister Cancer Brother Thyroid and Prostate Colon Cancer No Family History Social History Tobacco Use Smoking status: Never Passive exposure: Never Smokeless tobacco: Never Vaping Use Vaping Use: Never used Substance Use Topics Alcohol use: Yes Comment: rarely Drug use: No Physical Exam: BP 110/69 (BP Site: Left Arm, BP Position: Sitting, BP Cuff Size: Regular Adult) Pulse 77 Wt 110.6 kg (243 lb 12.8 oz) SpO2 98% BMI 31.39 kg/m General Appearance: Well appearing, alert, in no acute distress, well-hydrated, well nourished. Abdomen: soft Anorectal: External exam reveals no lesoins. Digital rectal exam reveals indurated ulcer anterior [employer] Garment [employer] present: Yes, Alpa Carr Anoscopy: The patient was placed in chest-knee position. After digital exam with a lubricated finger, the scope was easily inserted. Anterior distal ulcer noted. Otherwise normal mucosa was noted. Anoscopy completed. Assessment Assessment and Plan: Mervat Dmaon is a 72 year old male with T3N0 rectal cancer already completed long course chemoradiation and now undergoing consolidation chemotherapy. We will present his case at [facility] is transferring his care here. Following completion of his MARIZA we will plan for repeat MRI of the rectum as well as colonoscopy since he never had a complete colonoscopy. Final surgical plan to follow that imaging Medical Decision Making: Data Reviewed: Tests & Documents Reviewed/ordered: Review of prior notes from Dr. Eliot Munoz Review of Pathology Review of Imaging: CT Abdomen, MRI Pelvis Review of Labs: CBC, BMP, LFT, Albumin Review of Procedures / Tests: Colonoscopy I have independently interpreted: MRI Pelvis I have discussed Mervat Damon's treatment plan and/or results with Dr. Eliot Munoz. Risk of morbidity, mortality and/or complications of treatment plan: high Deborah Norman MD Colorectal Surgery documented in this encounterSelect [facility] [place]04-18-2023 NoteAd[facility]04-17-2023 NoteAd[facility]04-17-2023 History of Present illness Narrative* Mert Krueger MD - 02/04/2023 2:00 PM EDT Chief Compliant: Mervat Damon, 72 year old male, presents in the office today at the request of Ryan Hollis for New Patient Evaluation and Rectal Bleeding. My final recommendations will be communicated back to the requesting physician by the way of the shared medical record, fax, or via [employer]. HPI: Mervat Damon is a 72 year old male who presents for rectal bleeding and h/o rectal cancer Patient with rectal adenocarcinoma that was diagnosed in Aug 2022 He had issues with rectal bleeding and rectal pain Underwent colonoscopy (this was only flex sig per the patient) that showed large rectal mass. After that he saw, oncology in [place]. Plan was to start chemo and radiation before surgery He had radiation for 21 days then started chemo He is getting currently 4th cycle of chemo Previous OV 09-05-2022 Thalia Troy MD Diagnosis Plan 1. Adenocarcinoma of rectum (CMS/HCC) Ambulatory referral to Oncology Ambulatory referral to Oncology 08-22-2022 Dr Richmond Nugent Mervat Damon is a 71 yo male with PMH of hemorrhoids s/p hemorrhoidectomy, colon polyps, RA on methotrexate and prednisone, BPH, RA who presents as a referral for a rectal mass. Patient endorses 3-4 months of intermittent rectal pain and bright red blood per rectum with some clots, as well as significant straining and constipation. Last colonoscopy 10/2019 showed polyps and internal hemorrhoids. He was evaluated at [facility] on 08/20/22 via flexible sigmoidoscopy demonstrating a friable, firm lesion encompassing approximately 25-30% of the circumference of the anus right at the anal verge extending 3-4 cm into the anal canal with central ulceration. Biopsies were taken and pathology is pending. Patient is not currently on any blood thinners. Denies changes to his eating habits, no nausea, vomiting, abdominal pain or distension. He denies personal or family history of colon cancer. Previous Procedures: Previous Imagin12-10-22 CT ABD/PEL W IVCON IMPRESSION: 1. No evidence of metastatic disease within the abdomen/pelvis. 2. The known rectal neoplasm is not well delineated on this exam. Circumferential urinary bladder wall thickening is likely secondary to treatment-related cystitis. 3. Diverticulosis coli, without associated inflammation. 4. Please refer to concurrently acquired and separately reported chest CT for findings related to the thorax. 09-14-22 MRI pelvis IMPRESSION: 1.MR stage: T 3, N (-) , Mx. Somewhat limited due to lack of contrast. 2.Low rectal neoplasm with suspected early invasion of the internal anal sphincter at the upper canal. Complete details are provided in the findings section. Component Latest Ref Rng & Units 10/29/2022 11/08/2022 11/19/2022 12/17/2022 12/19/2022 12/25/2022 01/08/2023 01/22/2023 WBC 3.70 - 11.00 k/uL 6.08 5.77 8.49 5.79 6.96 7.63 9.19 RBC 4.20 - 6.00 m/uL 4.27 3.79 (L) 3.86 (L) 3.79 (L) 3.91 (L) 3.56 (L) 3.63 (L) Hemoglobin 13.0 - 17.0 g/dL 13.6 12.3 (L) 12.8 (L) 12.9 (L) 13.2 11.9 (L) 12.3 (L) Hematocrit 39.0 - 51.0 % 41.0 36.9 (L) 38.1 (L) 38.5 (L) 39.4 36.0 (L) 37.2 (L) MCV 80.0 - 100.0 fL 96.0 97.4 98.7 101.6 (H) 100.8 (H) 101.1 (H) 102.5 (H) MCH 26.0 - 34.0 pg 31.9 32.5 33.2 34.0 33.8 33.4 33.9 MCHC 30.5 - 36.0 g/dL 33.2 33.3 33.6 33.5 33.5 33.1 33.1 RDW-CV 11.5 - 15.0 % 15.9 (H) 17.3 (H) 19.1 (H) 18.9 (H) 17.8 (H) 16.3 (H) 17.2 (H) Platelet Count 150 - 400 k/uL 165 157 171 200 163 176 113 (L) MPV 9.0 - 12.7 fL 10.1 9.3 9.5 10.2 10.0 10.1 10.1 Neut% % 79.7 80.1 77.8 74.2 72.3 75.5 80.2 Abs Neut (ANC) 1.45 - 7.50 k/uL 4.85 4.62 6.61 4.30 5.03 5.76 7.36 Lymph% % 8.6 5.9 5.5 10.9 11.9 9.3 8.6 Abs Lymph 1.00 - 4.00 k/uL 0.52 (L) 0.34 (L) 0.47 (L) 0.63 (L) 0.83 (L) 0.71 (L) 0.79 (L) Harris% % 8.7 9.5 9.2 11.1 10.6 9.7 8.9 Abs Harris <0.87 k/uL 0.53 0.55 0.78 0.64 0.74 0.74 0.82 Eosin% % 1.8 3.1 6.5 2.2 3.6 4.3 1.3 Abs Eosin <0.46 k/uL 0.11 0.18 0.55 (H) 0.13 0.25 0.33 0.12 Baso% % 0.7 0.7 0.5 0.7 0.9 0.8 0.5 Abs Baso <0.11 k/uL 0.04 0.04 0.04 0.04 0.06 0.06 0.05 Immature Gran % % 0.5 0.7 0.5 0.9 0.7 0.4 0.5 IMMATURE GRANS (ABS) <0.10 k/uL 0.03 0.04 0.04 0.05 0.05 0.03 0.05 NRBC /100 WBC 0.0 0.0 0.0 0.0 0.0 0.0 0.0 Absolute nRBC <0.01 k/uL <0.01 <0.01 <0.01 <0.01 <0.01 <0.01 <0.01 DTYPE Auto Auto Auto Auto Auto Auto Auto Protein, Total 6.3 - 8.0 g/dL 6.5 6.1 (L) 6.2 (L) 6.2 (L) 6.0 (L) Albumin 3.9 - 4.9 g/dL 4.3 4.1 4.0 4.1 3.8 (L) Calcium 8.5 - 10.2 mg/dL 9.2 9.3 9.1 9.6 9.3 9.1 Bilirubin, Total 0.2 - 1.3 mg/dL 0.7 0.7 0.4 0.5 0.9 Alkaline Phosphatase 38 - 113 U/L 82 70 79 83 96 AST 14 - 40 U/L 16 15 14 15 12 (L) ALT 10 - 54 U/L 11 10 8 (L) 7 (L) 10 Glucose 74 - 99 mg/dL 111 (H) 113 (H) 84 86 118 (H) 100 (H) BUN 9 - 24 mg/dL 17 21 19 21 18 17 Creatinine 0.73 - 1.22 mg/dL 1.23 (H) 1.51 (H) 1.22 1.23 (H) 1.12 1.09 Sodium 136 - 144 mmol/L 134 (L) 142 140 143 142 139 Potassium 3.7 - 5.1 mmol/L 4.2 3.5 (L) 4.0 4.0 3.9 4.1 Chloride 97 - 105 mmol/L 101 105 107 (H) 105 106 (H) 103 CO2 22 - 30 mmol/L 27 28 28 28 25 27 Anion Gap 9 - 18 mmol/L 6 (L) 9 5 (L) 10 11 9 eGFR >=60 mL/min/1.73m 63 49 (L) 64 63 71 73 PT Sec 9.7 - 13.0 sec 10.7 PT INR 0.9 - 1.3 1.0 CEA <=2.9 ng/mL 10.5 (H) 3.7 (H) 1.7 2.4 ALLERGIES No Known Allergies rivaroxaban (XARELTO DVT-PE TREAT 30D START) 15 mg (42)- 20 mg (9) DsPk Take 1 tablet (15 mg) by mouth twice daily with food for 21 days. Then take 1 tablet (20 mg) by mouth once daily with food for 9 days. calcium carbonate (CALCIUM 600 ORAL) Take 1 tablet by mouth once daily. diphenhydrAMINE-Acetaminophen (TYLENOL PM EXTRA STRENGTH) 25-500 mg tab Take 1 tablet by mouth daily at bedtime. glucosamine/chondr perez A sod (GLUCOSAMINE-CHONDROITIN) 1,500-1,200 mg/30 mL liqd Take by mouth once daily. hydroCHLOROthiazide (HYDRODIURIL, ESIDRIX) 12.5 mg capsule Take 12.5 mg by mouth once daily. oxyCODONE-acetaminophen (PERCOCET) 5-325 mg tablet Take 1 tablet by mouth every 6 hours as needed for pain. finasteride (PROSCAR) 5 mg tablet Take by mouth once daily. HYDROcodone-acetaminophen (NORCO) 5-325 mg per tablet Take 1 tablet by mouth every 8 hours as needed for pain. ondansetron (ZOFRAN) 8 mg tablet Take 1 tablet by mouth every 8 hours as needed for nausea/vomiting. prochlorperazine (COMPAZINE) 10 mg tablet Take 1 tablet by mouth every 6 hours as needed. acetaminophen 325 mg cap Take by mouth as needed. predniSONE (DELTASONE) 5 mg tablet Take 5 mg by mouth once daily. valsartan (DIOVAN) 80 mg tablet Take 80 mg by mouth once daily. carvedilol (COREG) 6.25 mg tablet Take 6.25 mg by mouth twice daily with meals. folic acid 1 mg tablet Take 1 mg by mouth once daily. tamsulosin ER (FLOMAX) 0.4 mg cap Take 0.4 mg by mouth twice daily. Ascorbic Acid 100 mg tablet Take 100 mg by mouth twice daily. HISTORIES: FAMILY HISTORY Problem Relation Age of Onset Pancreatic Cancer Mother Cancer Father bladder Liver Cancer Sister Cancer Brother Thyroid and Prostate PAST MEDICAL HISTORY Diagnosis Date Acute low back pain with possible spinal stenosis of less than six weeks' duration Adenocarcinoma of rectum (HCC) Arthritis Bilateral renal cysts peripelvic BPH with urinary obstruction Cholelithiasis History of kidney stones Non-ischemic cardiomyopathy (HCC) Pulmonary emboli (HCC) 2020 left lower lobe RA (rheumatoid arthritis) (HCC) PAST SURGICAL HISTORY Procedure Laterality Date COLONOSCOPY HAMMERTOE REVISION, ONE TOE HEMORRHOID SURGERY HX HERNIA REPAIR HX LITHOTRIPSY PROC UNILATERAL REMV CATARACT EXTRACAP,INSERT LENS Social History Tobacco Use Smoking status: Never Passive exposure: Never Smokeless tobacco: Never Vaping Use Vaping Use: Never used Substance Use Topics Alcohol use: Yes Comment: rarely Drug use: No REVIEW OF SYSTEMS: General:No weight loss, malaise or fevers Respiratory: Negative for cough, hemoptysis, wheezing or shortness of breath Cardiovascular: Negative for chest pain, leg swelling or palpitations Gastrointestinal: No nausea, vomiting, or diarrhea Genitourinary: No history of dysuria, frequency or incontinence Musculoskeletal: Negative for joint pain or swelling, back pain or muscle pain Neurologic:Negative for focal numbness or weakness, headaches and dizziness or syncope. Skin:Negative for lesions, rash, and itching Psychiatric: Negative for sleep disturbance, mood disorder and recent psychosocial stressors. Hematologic/Lymph:Negative for prolonged bleeding, bruising easily or swollen nodes Endocrine: Negative for cold or heat intolerance, polyuria, polydipsia and goiter PHYSICAL EXAMINATION: There were no vitals taken for this visit. General appearance: Well appearing, alert, in no acute distress, well-hydrated, well nourished. Skin: Skin color, texture, turgor normal, no suspicious rashes or lesions Head: Normocephalic, no masses, lesions, tenderness or abnormalities Eyes: Anicteric sclera. Pupils are equally round Neck: Supple Lungs: Lungs clear to auscultation. No wheezing, rhonchi, rales Heart: RRR without murmur, gallop, or rubs. No ectopy Abdomen: Normal abdominal exam, Abdomen soft, non-tender. Bowel sounds normal. No masses, organomegaly Extremities: No deformities, edema, skin discoloration, clubbing or cyanosis. Good capillary refill. Musculoskeletal: No joint swelling, deformity, or tenderness Neuro: WNL ASSESSMENT/PLAN: 1. Rectal cancer (HCC) - ICD9: 154.1, ICD10: C20 (primary diagnosis) Last colonoscopy 10/2019 showed polyps and internal hemorrhoids. He was evaluated at [facility] on08/20/22 via flexible sigmoidoscopy demonstrating a friable, firm lesion encompassing [id number]% of the circumference of the anus right at the anal verge extending 3-4 cm into the anal canal with central ulceration Follows in [place] with Dr. Anderson who referred the patient here for more evaluation of rectal bleeding We discussed the rectal cancer as the cause of rectal bleeding Completed 21 days of radiation He is currently on chemotherapy 4th cycle of FOLFOX Tolerates this well Was seen by surgery at [place] but prefers to keep his care at [facility] Will refer to Dr. Norman to establish care - CONSULT TO COLO-RECTAL SURGERY 2. Rectal bleeding - ICD9: 569.3, ICD10: K62.5 We discussed the rectal cancer as a cause of this especially when using AC No other associating symptoms 3. Acute deep vein thrombosis (DVT) of distal vein of left lower extremity (HCC) - ICD9: 453.42, ICD10: I82.4Z2 This was diagnosed recently Currently on Xarelto 4. Family history of pancreatic cancer - ICD9: V16.0, ICD10: Z80.0 Mother with pancreas cancer age 71 (also breast cancer) Nephew with pancreas cancer age 40s Brother with thyroid cancer, other brother with prostate cancer Will discuss with Dr. Normna referring the patient to genetics 5. Family history of primary liver cancer - ICD9: V16.0, ICD10: Z80.0 Sister with HCC without known underlying liver cirrhosis Mert Krueger MD Follow Up: No follow-ups on file. documented in this encounterSelect Medical [facility] [place]04-[facility]-2023 Miscellaneous Notes* Telephone Encounter - Denisha Duarte RN - 01/24/2023 11:55 AM EDT Return call received from pt. Pt notified and verbalizes understanding. Denisha Duarte RN * Telephone Encounter - Denisha Duarte RN - 01/24/2023 9:04 AM EDT Call placed to pt. No answer. Message left requesting call back. Call placed to pt's spouse. No answer. 's recommendations left on spouse's personalized voicemail. Advised she call back w/ if further questions. Denisha Duarte RN * Telephone Encounter - Denisha Duarte RN - 01/23/2023 3:08 PM EDT Call placed to pt. No answer. Message left requesting call back. Denisha Duarte RN * Telephone Encounter - Denisha Duarte RN - 01/23/2023 1:02 PM EDT Call placed to pt's spouse. No answer. Message left requesting call back. Denisha Duarte RN * Telephone Encounter - Nick Anderson MD - 01/23/2023 11:59 AM EDT The patient can continue normal activities, but would suggest a support hose if leg swelling worsens while standing. * Telephone Encounter - Denisha Duarte RN - 01/23/2023 11:25 AM EDT BRM: Pt's spouse asks if it is ok for him to stand up at the altar during service this coming Saturday? Denisha Duarte RN * Telephone Encounter - Ryan Hollis APRN.ARACELY - 01/23/2023 10:52 AM EDT Signed. Ryan Hollis APRN.ARACELY * Telephone Encounter - Denisha Duarte RN - 01/23/2023 9:42 AM EDT Call placed to Dr Anderson to clarify anticoagulant. Per Dr Anderson, Ramya script cancelled due to cost. Pt to start Xarelto as prescribed. Pt's spouse notified and verbalizes understanding. RACIEL/Ryan: Order for GI consult pended. Pt's spouse asks if it is ok for him to stand up at the altar during service this coming Saturday? Denisha Duarte RN * Telephone Encounter - Nick Anderson MD - 01/23/2023 9:35 AM EDT I would recommend he see Dr. Kebede who is at [facility], and hopefully easier to get into thanthe others. Please schedule appointment. At this time I would recommend Xarelto for his DVT. We can hold off on IVC filter unless he has complications from the anticoagulants. He needs to be aware that an IVC filter may prevent PE, but willnot improve his leg swelling * Telephone Encounter - Denisha Duarte RN - 01/23/2023 9:11 AM EDT BRM: 1. Pt has had no signs of rectal bleeding in 10 days. Is a GI appointment still necessary? If so, pt would like referred to [facility] and asks who you recommend he see. 2. Pt was on Eliquis a few years ago due to a PE. Asks if a IVC filter is something he will need toconsider in light of his new DVT? Denisha Duarte RN * Telephone Encounter - Denisha Duarte RN - 01/23/2023 9:09 AM EDT Call received from Dr Anderson. Yesterday's US was positive for DVT. Wants to start pt on Eliquis 10 mg BID x 7 days then 5 mg BID. Script will be sent to [facility] pharmacy. Pt present in office at time of call. Pt notified of Dr's recommendations and verbalizes understanding. 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 Denisha Duarte RN documented in this encounterSelect Medical [facility], [place]04-04-2023 Miscellaneous Notes* Telephone Encounter - Denisha Duarte RN - 01/22/2023 1:35 PM EDT Voicemail message received from [facility] Central Scheduling. States that they are still waiting for ouroffice to fax the pt's US order. Asks that we send it to [phone]. Order faxed to the above number as requested. Denisha Duarte RN documented in this encounterSelect Medical [facility], [place]04-04-2023 [facility]04-04-2023 [facility]04[facility] History of Present illness Narrative* Hoa Owen RD - 01/22/2023 10:24 AM EDT Oncology Nutrition Therapy Progress Note RECOMMENDED MALNUTRITION DIAGNOSIS: NO MALNUTRITION IDENTIFIED Some elements copied from my note on 01/08/2023, have been updated and all reflect current decision making from today, 01/22/2023 Nutrition Intervention: -GI soft diet if having diarrhea -continue small frequent meals/snacks -include lean protein source at each meal/snack -encouraged good hydration -rec including ORS such as Pedialyte or Gatorade -discussed supplementation -ok to trial Boost Plus prn -provided contact information for any further questions/concerns Nutrition Monitoring & Evaluation: -PO Intake -Wt status -BM's -Supplement tolerance/acceptance -Biochemical Markers -Plan of care Date of last encounter: January 08, 2023 Patient met goal(s): Yes Patient's symptoms are: None Pt presents for nutrition counseling follow up. Pt currently being treated with FOLFOX. Pt denies any current chewing/swallowing issues. Pt denies any current N/V/D/C. Pt's weight is stable since initial encounter. Pt endorses good appetite and intakes. Pt does c/o some loose stool after last treatment noting some bloody stools and turtles. Interdisciplinary teamis aware. Pt is aware that he may need adjust diet for a few days depending on if having GI side effects from treatment. Reviewed interventions above. Pt denies any current nutrition questions/concerns. Dietitian remains available. READINESS TO LEARN Cognitive ability: Alert and oriented Motivation to learn: Interested Family support: High - Very involved in pt care Instruction provided to: Patient Patient learns best by: Individual Instruction Factors affecting learning: None Physical limitations affecting learning: None Educational materials provided: none this visit Need for Follow up: prn Referred by: Yesi BATISTA Billing Type: Re-assess/15 min 1 unit Billed Time: 15 minutes Signed by: Hoa Owen MS, RDN, LD documented in this encounterSelect Medical [facility], [place]04-04-2023 History of Present illness Narrative* Ashley Camilo RN - 01/22/2023 9:29 AM EDT Patient to get an US of LLE edema per Ryan. Would like it a [facility]. network desktop support specialist notified of another appointment that patient has today at [address] there. Ashley Camilo RN documented in this encounterSelect Medical [facility], [place]04-04-2023 History of Present illness Narrative* Ryan Hollis, RESEARCH GREENHOUSE SUPERVISOR.REMARKETING REP - 01/22/2023 8:49 AM EDT PATIENT NAME: Mervat Damon DATE: 01/22/2023 PRIMARY CARE PHYSICIAN: Dr. Lorenzo Olson OTHER PHYSICIANS: Dr. Mervat Slaughter, Dr. Thalia Troy, Dr. Kiko Treadwell, Dr. Vásquez Portions of this encounter note have been copied from my note from 01/08/2023 and has been updated where appropriate, and reflect my current medical decision making from today. CC: This is a 72 year old male with rectal cancer, seen for scheduled follow-up. INTERIM HISTORY: Mervat Damon returns for follow-up and cycle 3 FOLFOX. This past Saturday and Saturday he had 3 episodes of blood in his stools and then on Saturday he had 1 episode of blood in his stools. The blood in the stools then resolved. He thinks it may have been related to consuming nuts. He has occasional diarrhea and takes Imodium with improvement. He denies hand-foot syndrome. He did experience cold sensitivity. He had 5 days of tingling in his hands and feet. He recently developed swelling in his left ankle. He denies mouth sores. No fevers, chills, night sweats or signs/symptoms of infection. Overall, he is doing well and wishes to proceed with treatment as planned. MEDICATIONS: Current Outpatient Medications Medication Sig calcium carbonate (CALCIUM 600 ORAL) Take 1 tablet by mouth once daily. diphenhydrAMINE-Acetaminophen (TYLENOL PM EXTRA STRENGTH) 25-500 mg tab Take 1 tablet by mouth daily at bedtime. glucosamine/chondr perez A sod (GLUCOSAMINE-CHONDROITIN) 1,500-1,200 mg/30 mL liqd Take by mouth once daily. hydroCHLOROthiazide (HYDRODIURIL, ESIDRIX) 12.5 mg capsule Take 12.5 mg by mouth once daily. oxyCODONE-acetaminophen (PERCOCET) 5-325 mg tablet Take 1 tablet by mouth every 6 hours as needed for pain. finasteride (PROSCAR) 5 mg tablet Take by mouth once daily. HYDROcodone-acetaminophen (NORCO) 5-325 mg per tablet Take 1 tablet by mouth every 8 hours as needed for pain. ondansetron (ZOFRAN) 8 mg tablet Take 1 tablet by mouth every 8 hours as needed for nausea/vomiting. prochlorperazine (COMPAZINE) 10 mg tablet Take 1 tablet by mouth every 6 hours as needed. acetaminophen 325 mg cap Take by mouth as needed. predniSONE (DELTASONE) 5 mg tablet Take 5 mg by mouth once daily. valsartan (DIOVAN) 80 mg tablet Take 80 mg by mouth once daily. carvedilol (COREG) 6.25 mg tablet Take 6.25 mg by mouth twice daily with meals. folic acid 1 mg tablet Take 1 mg by mouth once daily. tamsulosin ER (FLOMAX) 0.4 mg cap Take 0.4 mg by mouth twice daily. Ascorbic Acid 100 mg tablet Take 100 mg by mouth twice daily. No current facility-administered medications for this visit. ALLERGIES: ALLERGIES No Known Allergies PAST MEDICAL HISTORY: PAST MEDICAL HISTORY Diagnosis Date Acute low back pain with possible spinal stenosis of less than six weeks' duration Adenocarcinoma of rectum (HCC) Arthritis Bilateral renal cysts peripelvic BPH with urinary obstruction Cholelithiasis History of kidney stones Non-ischemic cardiomyopathy (HCC) Pulmonary emboli (HCC) 2020 left lower lobe RA (rheumatoid arthritis) (HCC) PAST SURGICAL HISTORY: PAST SURGICAL HISTORY Procedure Laterality Date COLONOSCOPY HAMMERTOE REVISION, ONE TOE HEMORRHOID SURGERY HX HERNIA REPAIR HX LITHOTRIPSY PROC UNILATERAL REMV CATARACT EXTRACAP,INSERT LENS FAMILY HISTORY: FAMILY HISTORY Problem Relation Age of Onset Pancreatic Cancer Mother Cancer Father bladder Liver Cancer Sister Cancer Brother Thyroid and Prostate SOCIAL HISTORY: Social History Tobacco Use Smoking status: Never Passive exposure: Never Smokeless tobacco: Never Vaping Use Vaping Use: Never used Substance Use Topics Alcohol use: Yes Comment: rarely Drug use: No REVIEW OF SYSTEMS: General: No weight loss, malaise or fevers. HEENT: Negative for frequent or significant headaches. No changes in hearing or vision, no nose bleeds or other nasal problems. Respiratory: Negative for cough, wheezing or shortness of breath. Cardiovascular: Negative for chest pain, leg swelling or palpitations. GI: Negative for abdominal discomfort, blood in stools or black stools or change in bowel habits. See HPI. : No history of dysuria, frequency or incontinence. Musculoskeletal: Negative for joint pain or swelling, back pain and muscle pain. Skin: Negative for lesions, rash and itching. Hematology/Lymphology: Negative for prolonged bleeding, bruising easily or swollen nodes. Neuro: No history of headaches, syncope, paralysis, seizures or tremors PHYSICAL EXAM: ECOG 0 Exam limited to gross visualization where appropriate due to COVID-19. Gen.: This is an age-appropriate patient in no acute distress. Head: Appears atraumatic with no visible lesions. Eyes: Pupils equally round and reactive to light, extraocular muscles are intact. Neck: Supple. Mouth: Masked. Respiratory: Appears to be respiring comfortably. Neurologic: Nonfocal to gross visualization. Alert and oriented 3. Psychiatric: No evidence of inappropriate anxiety or depression. Skin: Visible areas of skin without rash, lesions, wounds or petechiae. PATHOLOGY: 08/20/2022 Colonoscopic biopsy ([facility]) Adenocarcinoma of colon (mass at anal verge) Mismatch repair gene -normal expression RADIOLOGY/OTHER STUDIES: 12/10/2022 CT chest IMPRESSION: 1. Multiple indeterminate noncalcified pulmonary nodules measuring up to 1 cm are unchanged since 09/11/2022. No enlarging nodule is identified. 2. Unchanged enlarged mediastinal lymph nodes. 3. Please refer to concurrently acquired and separately reported abdomen CT for findings related to the upper abdomen. 12/10/2022 CT abdomen/pelvis IMPRESSION: 1. No evidence of metastatic disease within the abdomen/pelvis. 2. The known rectal neoplasm is not well delineated on this exam. Circumferential urinary bladder wall thickening is likely secondary to treatment-related cystitis. 3. Diverticulosis coli, without associated inflammation. 4. Please refer to concurrently acquired and separately reported chest CT for findings related to the thorax. 10/01/2022 MRI abdomen ([facility]) No MRI evidence of liver lesion 09/25/2022 PET scan IMPRESSION: Head and Neck: * No hypermetabolic foci Chest: * Hypermetabolic mediastinal lymphadenopathy represent inflammatory/infectious etiology versus neoplastic. * Redemonstration of a few pulmonary nodules measuring up to 7 mm which are not well assessed on PET/CT given size, recommend follow-up with chest CT as clinically warranted. Abdomen and pelvis: * Hypermetabolic focus within the distal rectum at the site of previously visualized rectal cancer, better assessed on prior MRI. Musculoskeletal: * No neoplastic hypermetabolic lesions 09/11/2022 MRI pelvis ([facility]) Low rectal neoplasm with suspected early invasion of the internal anal sphincter at the upper canal(MRI category T3b, N0). Few nonenlarged 2 to 3 mm mesorectal lymph nodes. No suspicious lymphadenopathy. 09/11/2022 CT chest, abdomen, pelvis ([facility]) Possible low-attenuation lesion right hepatic lobe under centimeter in size. MRI could better characterize this should be performed with IV contrast. Nodular density within the left adrenal gland which could represent metastasis or adenoma. Multiple noncalcified pulmonary nodules worrisome for metastatic disease. Largest measures approxi-1 cm in the right upper lobe. LABORATORY DATA: Hemoglobin (g/dL) Date Value 01/22/2023 12.3 08/04/2018 14.3 Hematocrit (%) Date Value 01/22/2023 37.2 08/04/2018 43.1 WBC (k/uL) Date Value 01/22/2023 9.19 08/04/2018 6.24 Platelet Count (k/uL) Date Value 01/22/2023 113 08/04/2018 216 CEA 09/05/2022 14.4 09/17/2022 15.7 10/02/2022 14.1 10/29/2022 10.5 11/19/2022 3.7 12/17/2022 1.7 ASSESSMENT/PLAN: 1. 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 Pelvic MRI confirmed T3bN0 disease. However, baseline CT scans were abnormal indicating bilateral pulmonary nodules and a suspicious liver lesion. PET scan 09/25/2022 revealed low-level FDG uptake in the mediastinal nodes of unclear significance, but no uptake in the pulmonary nodules. Liver MRI was negative. Mediastinal EBUS biopsy 10/10/2022 was negative. It was felt the patienthad localized disease, and recommendations were to proceed with neoadjuvant chemoradiation. Treatment with capecitabine 825 mg/m2 twice daily concurrent with pelvic radiation given 10/08/2022 through 11/19/2022. With treatment the patient's rectal pain and bleeding resolved. Follow-up CT scans 12/10/2022 stable, with no evidence of metastatic disease. Subsequently the patient continued neoadjuvant treatment with chemotherapy consisting of FOLFOX, with plans to give every 2 weeks x 6 to 8 cycles. Cycle 1 started 12/25/2022. He had moderate nausea anddiarrhea, otherwise tolerated treatment well. We will proceed with cycle 3 starting today. We will plan to give IV fluids and IV antiemetics on day 3. He'll return in 2 weeks for his next cycle. After completing neoadjuvant chemotherapy the patient will be referred back to colorectal surgery (Dr. Thalia Troy in [place]) for restaging to include pelvic MRI and flex sig. Based on these results surgical options will be discussed. 2. Rheumatoid arthritis Diagnosed 2005. Previous treatment has included steroids, Enbrel, and methotrexate. Currently stable on low-dose steroids (prednisone 5 mg daily). Continue management per rheumatology (Dr. Treadwell) 3. Cardiomyopathy History of nonischemic cardiomyopathy. Currently minimally symptomatic. Continue management per PCP/cardiology. 4. History of cervical spinal stenosis Status post cervical spine fusion. Currently asymptomatic. 5. Benign prostatic hypertrophy History of LUTS consistent with BPH. Minimally symptomatic at this time. Continue management per PCP/urology. 6. History of pulmonary embolism Diagnosed June 2018 after a prolonged car ride. Status post anticoagulation with Eliquis x 2 years. No evidence of ongoing thromboembolic disease. 7. Leg swelling - ICD9: 729.81, ICD10: M79.89 Will obtain left lower extremity ultrasound to rule out DVT. Ryan Hollis APRN.REMARKETING REP CC: Dr. Thalia Troy ([facility] Colorectal Surgery) I spent a total of 30 minutes on the date of the service which included preparing to see the patient, [id number] patient care, completing clinical documentation, obtaining and/or reviewing separately obtained history, performing a medically appropriate examination, counseling and educating the pat ient/family/caregiver, ordering medications, tests, or procedures, independently interpreting results (not separately reported), and communicating results to the patient/family/caregiver. documented in this encounterSelect Medical [facility], [place]03-31-2023 Miscellaneous Notes* Telephone Encounter - Renata Amin - 01/18/2023 4:14 PM EDT Patient has an OTV appointment on 01/22. Please place lab orders. Renata Amin documented in this encounterSelect Medical [facility], [place]03-27-2023 Miscellaneous Notes* Telephone Encounter - Denisha Duarte RN - 01/14/2023 12:17 PM EDT Pt notified and verbalizes understanding. 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 However, a flex sigmoidoscopy would be recommended to make sure nothing else serious going on. Best if he could see his [place] colorectal surgeon. If not able to get in to see her the local genetic counsellor can perform a flex sig. Kana Siddiqui * Telephone Encounter - Denisha Duarte RN - 01/14/2023 8:24 AM EDT Pt reports rectal bleeding w/ bowel movements beginning yesterday. Notes large amounts of bright red blood in the toilet water. Denies rectal or abdominal pain. Stools are formed to loose. Denies nausea or vomiting. Has h/o diverticulosis. Notes he had a very small amount of nuts on Saturday. What doyou advise? Denisha Duarte RN documented in this encounterSelect Medical [facility], [place]03-26-2023 NoteEchocardiology Procedure Exam Date/Time Accession # Ordering Echo Transthoracic 01/10/2023 15:02 EDT [id number] Cyndee SANCHEZ CNP Complete CPT code 17519 96512 Reason for Exam (Echo Transthoracic Complete) I42.8;Cardiomyopathy Report Version: 1 Study ID: [id number] [facility] [address] [place] [address] Adult Echocardiogram Report Name: MERVAT DAMON Study Date: 01/10/2023, 2: 20 PM Patient Location: [facility] : 1950 (MM/DD/YYYY) Gender: Male Age: 72 Years Height: 187.96 cm BP: 93 / 62 mmHg Weight: 111.586 kg HR: 71 bpm BSA: 2.37 m? Ordering Physician: Cyndee SANCHEZ L Referring Physician: Cyndee SANCHEZ Performed By: Nida Cerda, SARAHI, RVT Reason For Study: Cardiomyopathy History: Cardiomyopathy Interpretation Summary Normal LV size. Low normal LV systolic function, EF 50-55%. Normal RV. No significant valve disease. Normal estimated PA pressure. Procedure A complete two-dimensional transthoracic echocardiogram was performed (2D, M- mode, spectral and color flow Doppler). Study quality is good. Left Ventricle The left ventricle is normal in size. Borderline left ventricular hypertrophy. Ejection Fraction = 50-55%. The left ventricular wall motion is normal. Grade I diastolic dysfunction, (abnormal relaxation pattern). Left Atrium The left atrium is mildly dilated. Echocardiology Report Right Atrium Right atrial size is normal. Right Ventricle The right ventricular systolic function is normal. The right ventricle is normal size. The right ventricular wall motion is normal. Aortic Valve The aortic valve is trileaflet. No aortic regurgitation. There is no aortic stenosis. Mitral Valve The mitral valve is normal in structure and function. There is no mitral regurgitation noted. No mitral valve stenosis. Tricuspid Valve Structurally normal tricuspid valve. No evidence of tricuspid regurgitation. Pulmonic Valve No evidence of stenosis. There is no pulmonic valve regurgitation. Arteries The aortic root is normal in size. Normal ascending aorta. Pulmonary artery diameter is normal. Venous The inferior vena cava is normal in size, and collapses normally with respiration. Effusion There is no pericardial effusion. Left Ventricle IVSd: 1.15 cm LVIDd: 5.7 cm LVPWd: 1.28 cm LVIDs: 3.2 cm EDV(MOD-sp4): 107.0 ml LVLd ap4: 8.4 cm ESV(MOD-sp4): 50.5 ml LVLs ap4: 6.8 cm EDV(MOD-sp2): 134.0 ml LVLd ap2: 7.7 cm ESV(MOD-sp2): 59.2 ml LVLs ap2: 6.5 cm Right Ventricle TAPSE: 3.7 cm Aortic Valve LVOT diam: 2.9 cm LV V1 max: 81.0 cm/sec LV V1 max P.6 mmHg Ao max P.0 mmHg Ao V2 max: 111.6 cm/sec Tricuspid Valve TR max P.1 mmHg TR max gaston: 287.8 cm/sec Aorta Ao root diam: 3.5 cm Ao Sinus of Valsalva: 3.9 cm Ao Sinotubular Junction: 2.7 cm asc Aorta Diam: 4.0 cm Atria LA dimension: 4.3 cm Diastolic funtion Med Peak E' Gaston: 5.0 cm/sec Lat Peak E' Gaston: 8.9 cm/sec MV dec time: 0.21 sec MV E max gaston: 62.9 cm/sec MV A max gaston: 76.0 cm/sec Echocardiology Report Ao max P.0 mmHg Ao root area: 9.6 cm? Ao root diam: 3.5 cm Ao Sinus of Valsalva: 3.9 cm Ao Sinotubular Junction: 2.7 cm Ao V2 max: 111.6 cm/sec AV VR: 0.72 [place](V,D): 4.9 cm? EDV(MOD-sp4): 107.0 ml EDV(Teich): 158.7 ml EF(MOD-sp4): 52.8 % EF(Teich): 74.7 % ESV(MOD-sp4): 50.5 ml ESV(Teich): 40.2 ml FS: 44.1 % IVC Diam: 2.03 cm IVSd: 1.15 cm LA dimension: 4.3 cm LV V1 max: 81.0 cm/sec LV V1 max P.6 mmHg LVIDd: 5.7 cm LVIDs: 3.2 cm LVLd ap4: 8.4 cm LVLs ap4: 6.8 cm LVOT area: 6.8 cm? LVOT diam: 2.9 cm LVPWd: 1.28 cm MV A max gaston: 76.0 cm/sec MV dec time: 0.21 sec MV E max gaston: 62.9 cm/sec MV E/A: 0.83 RAP systole: 3.0 mmHg RVDd: 2.9 cm RVIDd/LVIDd: 0.50 RVSP(TR): 36.1 mmHg SV(MOD-sp4): 56.5 ml TAPSE: 3.7 cm TR max P.1 mmHg TR max gaston: 287.8 cm/sec asc Aorta Diam: 4.0 cm E/E' Lat: 7.1 E/E' Med: 12.6 EDV(MOD-sp2): 134.0 ml EF (MOD-bp): 55.4 % EF(MOD-sp2): 55.8 % ESV(MOD-sp2): 59.2 ml LA Vol Index: 29.9 ml/m? Lat Peak E' Gaston: 8.9 cm/sec LVLd ap2: 7.7 cm LVLs ap2: 6.5 cm Med Peak E' Gaston: 5.0 cm/sec Echocardiology Report Electronically signed by: Santiago Kong MD 01/13/2023, 8: 23 AM FINAL REPORT Dictated: 01/10/2023 2:20 pm Santiago Kong MD Signed (Electronic Signature): 01/13/2023 8:23 am Signed by: Santiago Kong MD Transcribed by: [facility] Technologist: [facility]03-21-2023 Note [facility]03-21-2023 History of Present illness Narrative* Hoa Owen RD - 01/08/2023 10:17 AM EDT Oncology Nutrition Therapy Reassessment RECOMMENDED MALNUTRITION DIAGNOSIS: NO MALNUTRITION IDENTIFIED Some elements copied from my note on 10/19/2023, have been updated and all reflect current decisionmaking from today, 01/08/2023 Nutrition Diagnosis: Increased protein and energy needs related to hypermetabolic disease process as evidenced by need for weight maintenance and preservation of muscle mass. Nutrition Intervention: -GI soft diet if having diarrhea -aim for small frequent meals/snacks -include lean protein source at each meal/snack -discussed ways to combat nutrition related side effects -N/D, altered appetite -encouraged good hydration -rec including ORS such as Pedialyte or Gatorade -discussed supplementation -ok to trial Boost Plus prn -provided contact information for any further questions/concerns Nutrition Monitoring & Evaluation: -PO Intake -Wt status -BM's -Biochemical Markers -Plan of care Date of last encounter: October 19, 2023 Patient met goal(s): Partially Patient's symptoms are: GI: diarrhea Behavioral: altered appetite Pt presents for nutrition counseling for rectal cancer. Pt is currently being treated with FOLFOX. Pt was previously treated with RT, Xeloda. Pt denies any chewing/swallowing issues, denies current N/V/D/C, but reports having diarrhea for a few days after treatment. Pt states for a few days after treatment having decreased appetite, then appetite returns to baseline. Overall his intakes remain good. Reviewed interventions above and problem solved ways to meet recommendations. Thank you for allowing me to participate in the care of this pt. Readiness to Learn: Cognitive ability: Alert and oriented Motivation to learn: Interested Family support: High - Very involved in pt care Instruction provided to: Patient and family member Patient learns best by: Individual Instruction Factors affecting learning: None Physical limitations affecting learning: None Educational materials provided: Guidelines for a GI Soft Diet Anthropometrics: Height: Last 1 Encounter Ht Readings: Date: Ht: 01/08/2023 187.7 cm (6' 1.9 ) Current weight: Last 1 Encounter Wt Readings: Date: Wt: 01/08/2023 113.3 kg (249 lb 12.8 oz) Estimated body mass index is 32.16 kg/m as calculated from the following: Height as of an earlier encounter on 01/08/23: 187.7 cm (6' 1.9 ). Weight as of an earlier encounter on 01/08/23: 113.3 kg (249 lb 12.8 oz). Resting Metabolic Rate: 1965 Weight Change: n/a, no significant changes but weight fluctuations noted [place] Body Weight: 79.9kg Estimated kilocalorie needs: 0888-1346 kilocalories determined by 25-30 kcal/kg Estimated protein needs: 80-96 grams determined by 1.0-1.2 g/kg [place] weight Estimated fluid needs: ~0404-5958 milliliters based on 1 mL per kcal (unless otherwise noted) Nutrition Focused Physical Exam: Unable to perform exam due to concerns for lack of privacy in treatment area, will re-attempt during reassessment. Potential Signs of Inflammation: chronic condition Allergies: Patient has no known allergies. Medications: Current Outpatient Medications Medication Sig Dispense Refill calcium carbonate (CALCIUM 600 ORAL) Take 1 tablet by mouth once daily. diphenhydrAMINE-Acetaminophen (TYLENOL PM EXTRA STRENGTH) 25-500 mg tab Take 1 tablet by mouth daily at bedtime. glucosamine/chondr perez A sod (GLUCOSAMINE-CHONDROITIN) 1,500-1,200 mg/30 mL liqd Take by mouth once daily. hydroCHLOROthiazide (HYDRODIURIL, ESIDRIX) 12.5 mg capsule Take 12.5 mg by mouth once daily. oxyCODONE-acetaminophen (PERCOCET) 5-325 mg tablet Take 1 tablet by mouth every 6 hours as needed for pain. 100 tablet 0 finasteride (PROSCAR) 5 mg tablet Take by mouth once daily. HYDROcodone-acetaminophen (NORCO) 5-325 mg per tablet Take 1 tablet by mouth every 8 hours as needed for pain. 30 tablet 0 ondansetron (ZOFRAN) 8 mg tablet Take 1 tablet by mouth every 8 hours as needed for nausea/vomiting. 90 tablet 1 prochlorperazine (COMPAZINE) 10 mg tablet Take 1 tablet by mouth every 6 hours as needed. 100 tablet 1 acetaminophen 325 mg cap Take by mouth as needed. predniSONE (DELTASONE) 5 mg tablet Take 5 mg by mouth once daily. valsartan (DIOVAN) 80 mg tablet Take 80 mg by mouth once daily. carvedilol (COREG) 6.25 mg tablet Take 6.25 mg by mouth twice daily with meals. folic acid 1 mg tablet Take 1 mg by mouth once daily. tamsulosin ER (FLOMAX) 0.4 mg cap Take 0.4 mg by mouth twice daily. Ascorbic Acid 100 mg tablet Take 100 mg by mouth twice daily. No current facility-administered medications for this visit. Facility-Administered Medications Ordered in Other Visits Medication Dose Route Frequency Provider Last Rate Last Admin oxaliplatin 145.8 mg in D5W 569.16 mL (ELOXATIN) 60 mg/m2 (Treatment Plan Recorded) INTRAVENOUS ONCE Nick Anderson MD 145.8 mg at 01/08/23927 leucovorin 972 mg in D5W 106.6 mL 400 mg/m2 (Treatment Plan Recorded) INTRAVENOUS ONCE Nick Anderson MD 972 mg at 01/08/23927 fluorouracil 729 mg injection (ADRUCIL) 300 mg/m2 (Treatment Plan Recorded) INTRAVENOUS ONCE Nick Anderson MD fluorouracil (ADRUCIL) 4,860 mg in NaCl 0.9% 102 mL in empty bag 2,000 mg/m2 (Treatment Plan Recorded) INTRAVENOUS ONCE Nick Anderson MD NaCl 0.9% iv infusion 500-999 mL/hr INTRAVENOUS PRN Nick Anderson MD diphenhydrAMINE 50 mg injection (BENADRYL) 50 mg INTRAVENOUS PRN Nick Anderson MD hydrocortisone sodium succinate (PF) 100 mg injection (Solu-CORTEF) 100 mg INTRAVENOUS PRN Nick Anderson MD EPINEPHrine 1 mg/mL (1 mL) 0.3 mg injection 0.3 mg INTRAMUSCULAR PRN Nick Anderson MD sodium chloride 0.9 % (flush) 10-20 mL (BD POSIFLUSH) 10-20 mL INTRAVENOUS DIRECTED PRN Nick Anderson MD Need for Follow up: will continue to follow Referred by: Yesi BATISTA Billing Type: Re-assess/15 min 1 unit Time Spent with Patient: 15 minutes Signed by: Hoa Owen MS, RDN, LD documented in this encounter[facility] [place] Nurse Note* Lisseth Chávez - 01/08/2023 8:23 AM EDT Pt states that he had a lot of nausea after his last treatment and felt sick for 2 days after despite using his antiemetics. Lisseth Chávez' documented in this encounterSelect [facility] [place] History of Present illness Narrative* Nick Anderson MD - 01/08/2023 6:49 AM EDT PATIENT NAME: Mervat Damon DATE: 01/08/2023 PRIMARY CARE PHYSICIAN: Dr. Lorenzo Olson OTHER PHYSICIANS: Dr. Mervat Slaughter, Dr. Thalia Troy, Dr. Kiko Treadwell, Dr. Vásquez Portions of this encounter note have been copied from my note from 12/25/2022 and has been updated where appropriate, and reflect my current medical decision making from today. CC: This is a 72 year old male with rectal cancer, seen for scheduled follow-up. INTERIM HISTORY: At the patient's last visit here he received FOLFOX cycle 1. Initially he tolerated treatment well, but had significant nausea day 3 through 5, and diarrhea day 4 through 5. Those symptoms have since resolved, and he currently feels back to normal. No ongoing diarrhea or other GI symptoms. No evidence of neuropathy. MEDICATIONS: Current Outpatient Medications Medication Sig calcium carbonate (CALCIUM 600 ORAL) Take 1 tablet by mouth once daily. diphenhydrAMINE-Acetaminophen (TYLENOL PM EXTRA STRENGTH) 25-500 mg tab Take 1 tablet by mouth daily at bedtime. glucosamine/chondr perez A sod (GLUCOSAMINE-CHONDROITIN) 1,500-1,200 mg/30 mL liqd Take by mouth once daily. hydroCHLOROthiazide (HYDRODIURIL, ESIDRIX) 12.5 mg capsule Take 12.5 mg by mouth once daily. oxyCODONE-acetaminophen (PERCOCET) 5-325 mg tablet Take 1 tablet by mouth every 6 hours as needed for pain. finasteride (PROSCAR) 5 mg tablet Take by mouth once daily. HYDROcodone-acetaminophen (NORCO) 5-325 mg per tablet Take 1 tablet by mouth every 8 hours as needed for pain. ondansetron (ZOFRAN) 8 mg tablet Take 1 tablet by mouth every 8 hours as needed for nausea/vomiting. prochlorperazine (COMPAZINE) 10 mg tablet Take 1 tablet by mouth every 6 hours as needed. acetaminophen 325 mg cap Take by mouth as needed. predniSONE (DELTASONE) 5 mg tablet Take 5 mg by mouth once daily. valsartan (DIOVAN) 80 mg tablet Take 80 mg by mouth once daily. carvedilol (COREG) 6.25 mg tablet Take 6.25 mg by mouth twice daily with meals. folic acid 1 mg tablet Take 1 mg by mouth once daily. tamsulosin ER (FLOMAX) 0.4 mg cap Take 0.4 mg by mouth twice daily. Ascorbic Acid 100 mg tablet Take 100 mg by mouth twice daily. No current facility-administered medications for this visit. ALLERGIES: ALLERGIES No Known Allergies PAST MEDICAL HISTORY: PAST MEDICAL HISTORY Diagnosis Date Acute low back pain with possible spinal stenosis of less than six weeks' duration Adenocarcinoma of rectum (HCC) Arthritis Bilateral renal cysts peripelvic BPH with urinary obstruction Cholelithiasis History of kidney stones Non-ischemic cardiomyopathy (HCC) Pulmonary emboli (HCC) 2020 left lower lobe RA (rheumatoid arthritis) (HCC) PAST SURGICAL HISTORY: PAST SURGICAL HISTORY Procedure Laterality Date COLONOSCOPY HAMMERTOE REVISION, ONE TOE HEMORRHOID SURGERY HX HERNIA REPAIR HX LITHOTRIPSY PROC UNILATERAL REMV CATARACT EXTRACAP,INSERT LENS FAMILY HISTORY: FAMILY HISTORY Problem Relation Age of Onset Pancreatic Cancer Mother Cancer Father bladder Liver Cancer Sister Cancer Brother Thyroid and Prostate SOCIAL HISTORY: Social History Tobacco Use Smoking status: Never Passive exposure: Never Smokeless tobacco: Never Vaping Use Vaping Use: Never used Substance Use Topics Alcohol use: Yes Comment: rarely Drug use: No REVIEW OF SYSTEMS: General: No weight loss, malaise or fevers. HEENT: Negative for frequent or significant headaches. No changes in hearing or vision, no nose bleeds or other nasal problems. Respiratory: Negative for cough, wheezing or shortness of breath. Cardiovascular: Negative for chest pain, leg swelling or palpitations. GI: Negative for abdominal discomfort, blood in stools or black stools or change in bowel habits. See HPI. : No history of dysuria, frequency or incontinence. Musculoskeletal: Negative for joint pain or swelling, back pain and muscle pain. Skin: Negative for lesions, rash and itching. Hematology/Lymphology: Negative for prolonged bleeding, bruising easily or swollen nodes. Neuro: No history of headaches, syncope, paralysis, seizures or tremors PHYSICAL EXAM: BP 107/73 Pulse 68 Temp 36.2 C (97.2 F) (Temporal) Resp 16 Ht 187.7 cm (6' 1.9 ) Wt 113.3 kg (249 lb 12.8 oz) SpO2 98% BMI 32.16 kg/m ECOG 0 Exam limited to gross visualization where appropriate due to COVID-19. Gen.: This is an age-appropriate patient in no acute distress. Head: Appears atraumatic with no visible lesions. Eyes: Pupils equally round and reactive to light, extraocular muscles are intact. Neck: Supple. Mouth: Masked. Respiratory: Appears to be respiring comfortably. Neurologic: Nonfocal to gross visualization. Alert and oriented 3. Psychiatric: No evidence of inappropriate anxiety or depression. Skin: Visible areas of skin without rash, lesions, wounds or petechiae. PATHOLOGY: 08/20/2022 Colonoscopic biopsy ([facility]) Adenocarcinoma of colon (mass at anal verge) Mismatch repair gene -normal expression RADIOLOGY/OTHER STUDIES: 12/10/2022 CT chest IMPRESSION: 1. Multiple indeterminate noncalcified pulmonary nodules measuring up to 1 cm are unchanged since 09/11/2022. No enlarging nodule is identified. 2. Unchanged enlarged mediastinal lymph nodes. 3. Please refer to concurrently acquired and separately reported abdomen CT for findings related to the upper abdomen. 12/10/2022 CT abdomen/pelvis IMPRESSION: 1. No evidence of metastatic disease within the abdomen/pelvis. 2. The known rectal neoplasm is not well delineated on this exam. Circumferential urinary bladder wall thickening is likely secondary to treatment-related cystitis. 3. Diverticulosis coli, without associated inflammation. 4. Please refer to concurrently acquired and separately reported chest CT for findings related to the thorax. 10/01/2022 MRI abdomen ([facility]) No MRI evidence of liver lesion 09/25/2022 PET scan IMPRESSION: Head and Neck: * No hypermetabolic foci Chest: * Hypermetabolic mediastinal lymphadenopathy represent inflammatory/infectious etiology versus neoplastic. * Redemonstration of a few pulmonary nodules measuring up to 7 mm which are not well assessed on PET/CT given size, recommend follow-up with chest CT as clinically warranted. Abdomen and pelvis: * Hypermetabolic focus within the distal rectum at the site of previously visualized rectal cancer, better assessed on prior MRI. Musculoskeletal: * No neoplastic hypermetabolic lesions 09/11/2022 MRI pelvis ([facility]) Low rectal neoplasm with suspected early invasion of the internal anal sphincter at the upper canal(MRI category T3b, N0). Few nonenlarged 2 to 3 mm mesorectal lymph nodes. No suspicious lymphadenopathy. 09/11/2022 CT chest, abdomen, pelvis ([facility]) Possible low-attenuation lesion right hepatic lobe under centimeter in size. MRI could better characterize this should be performed with IV contrast. Nodular density within the left adrenal gland which could represent metastasis or adenoma. Multiple noncalcified pulmonary nodules worrisome for metastatic disease. Largest measures approxi-1 cm in the right upper lobe. LABORATORY DATA: Hemoglobin (g/dL) Date Value 01/08/2023 11.9 08/04/2018 14.3 Hematocrit (%) Date Value 01/08/2023 36.0 08/04/2018 43.1 WBC (k/uL) Date Value 01/08/2023 7.63 08/04/2018 6.24 Platelet Count (k/uL) Date Value 01/08/2023 176 08/04/2018 216 CEA 09/05/2022 14.4 09/17/2022 15.7 10/02/2022 14.1 10/29/2022 10.5 11/19/2022 3.7 12/17/2022 1.7 ASSESSMENT/PLAN: 1. 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 Pelvic MRI confirmed T3bN0 disease. However, baseline CT scans were abnormal indicating bilateral pulmonary nodules and a suspicious liver lesion. PET scan 09/25/2022 revealed low-level FDG uptake in the mediastinal nodes of unclear significance, but no uptake in the pulmonary nodules. Liver MRI was negative. Mediastinal EBUS biopsy 10/10/2022 was negative. It was felt the patienthad localized disease, and recommendations were to proceed with neoadjuvant chemoradiation. Treatment with capecitabine 825 mg/m2 twice daily concurrent with pelvic radiation given 10/08/2022 through 11/19/2022. With treatment the patient's rectal pain and bleeding resolved. Follow-up CT scans 12/10/2022 stable, with no evidence of metastatic disease. Subsequently the patient continued neoadjuvant treatment with chemotherapy consisting of FOLFOX, with plans to give every 2 weeks x 6 to 8 cycles. Cycle 1 started 12/25/2022. He had moderate nausea anddiarrhea, otherwise tolerated treatment well. We will proceed with cycle 2 starting today. We will plan to give IV fluids and IV antiemetics on day 3. Return in 2 weeks for his next cycle. After completing neoadjuvant chemotherapy the patient will be referred back to colorectal surgery (Dr. Thalia Troy in [place]) for restaging to include pelvic MRI and flex sig. Based on these results surgical options will be discussed. 2. Rheumatoid arthritis Diagnosed 2005. Previous treatment has included steroids, Enbrel, and methotrexate. Currently stable on low-dose steroids (prednisone 5 mg daily). Continue management per rheumatology (Dr. Treadwell) 3. Cardiomyopathy History of nonischemic cardiomyopathy. Currently minimally symptomatic. Continue management per PCP/cardiology. 4. History of cervical spinal stenosis Status post cervical spine fusion. Currently asymptomatic. 5. Benign prostatic hypertrophy History of LUTS consistent with BPH. Minimally symptomatic at this time. Continue management per PCP/urology. 6. History of pulmonary embolism Diagnosed June 2018 after a prolonged car ride. Status post anticoagulation with Eliquis x 2 years. No evidence of ongoing thromboembolic disease. Nick Anderson MD CC: Dr. Thalia Troy ([facility] Colorectal Surgery) documented in this encounterSelect Medical [facility] [place]03-[facility]-2023 Miscellaneous Notes* Telephone Encounter - Lucy Goetz RN - 12/28/2022 4:22 PM EST CYCLE 1/DAY 1 POST TREATMENT CALL Today's date: December 28, 2022 Treatment Regimen: Folfox C1D1 Date: 12/25/22 Called patient to follow-up on symptom management. Spoke with patient SYMPTOM ASSESSMENT Neuro: Dizziness if gets up too quick from sitting down and Cold sensitivity for about 15 minutes had tingling in toes. CV/Resp: None GI/: Appetite: decreased appetite, encouraged snacks every hour or two Nausea taking zofran with minimalrelief. Encouraged pt to alternate zofran with compazine, Fluid intake: so/so, pt will try boost orensure to see if this helps and states he had some diarrhea today and is still taking stool softener. Encouraged pt to stop taking stool softener while having diarrhea. Verbalized understanding. Integument: None Activity: Patient reported decreased energy level Pain: pt denies pain but states he had a kayla horse in his left calf last night. Encouraged pt to increase fluids. Reviewed s/s of DVT and pt will monitor for now. Fever: No Chills: No Any new referrals needed? No Reinforced CURRENT treatment education based on current and anticipated symptoms. Discussed port/line care and patient verbalizes understanding: Yes Patient instructed to contact office or after hours Hematology/Oncology fellow for: temperature ? 100.4; questions or concerns. Patient verbalized understanding of when to seek medical attention and after hours number protocol. Lucy Goetz RN documented in this encounterSelect Medical [facility], [place]03-07-[facility]03-[facility] History of Present illness Narrative* Denisha Duarte RN - 12/20/2022 2:55 PM EST Latex Thread Machine Operator Pre Chemo Patient identified by name and date of . YES Confirmed date and time for chemotherapy ? YES Other appointments (labs, imaging) discussed? YES Discussed where to park (twister in), charge for parking NO Discussed where to report (building/floor) YES Any pre-medications ordered? NO Described the infusion room and what to expect. (What to wear, what to bring [iPad, books] amount of time treatment can take, meals and CC options for food) YES Note: NA Discussed whether the patient can eat prior to labs and treatment. YES Who is driving you to and from treatment? Spouse Discussed why it is important to bring someone with you. Yes, Resources discussed (music therapy, Art therapy, pet therapy, etc.) YES Education on chemotherapy (drug, side effects) discussed and that the patient will be receiving a C1D1 call within 7 days of treatment. YES Other topics discussed, interventions needed: JOSE Duarte RN * Denisha Duarte RN - 12/20/2022 2:46 PM EST ONCOLOGY PATIENT EDUCATION NOTE TOPIC: Chemotherapy, Medications: Oxaliplatin, Leucovorin, & 5FU READINESS TO LEARN: COGNITIVE ABILITY: Alert and oriented MOTIVATION TO LEARN: Interested FAMILY SUPPORT: High - Very involved in pt care INSTRUCTION PROVIDED TO: Patient and Spouse INSTRUCTION PROVIDED BY: Nurse Coordinator PATIENT LEARNS BEST BY: Individual Instruction Verbal Instruction Written Material FACTORS AFFECTING LEARNING: None PHYSICAL LIMITATIONS AFFECTING LEARNING: None LEARNING RESPONSE DIAGNOSIS: Rectal Cancer METHOD OF INSTRUCTION: Individual instruction Written instruction - handouts Verbal instruction PATIENT/FAMILY RESPONSE: Verbalizes understanding of: CHEMOTHERAPY-Regimen, toxicity and side effects EQUIPMENT USE-Correct use of Equipment INFECTION MANAGEMENT-Signs and symptoms of an infection and importance of contacting the physician SYMPTOM MANAGEMENT-Correct actions to take to manage symptoms associated with his/her disease/illness WORSENING CONDITION-Signs and symptoms of a worsening condition that warrant a call to the physician Information received as demonstrated by interest and questions FOLLOW UP PLAN: Patient instructed to call with any further issues Contact information given. SUPPLEMENTAL MATERIAL: Written material was provided at this visit with the following information: - Chemotherapy education was provided by a pharmacist NO - Side effect management information was provided/discussed including but not limited to: abdominaldiscomfort, anemia, appetite changes, arthralgia, bowel habit changes, cardiac toxicity, cold sensitivity, diet, electrolyte disturbances, fatigue, hand-foot syndrome, headache, infection, mouth hygiene, mucositis, myalgia, nausea/vomitting, neutropenia, peripheral neuropathy, skin changes, taste changes, thrombocytopenia YES - Provided important phone numbers and contacts during and after hours. YES - Provided information on symptoms that require immediate assistance. YES - Provided Chemotherapy when to call handouts YES - Preventing infection. YES - Treatment schedule and confirmation of appointment times. YES - Available support groups. NA - The importance of contraception during the course of chemotherapy YES - Neutropenic fever protocol discussed with patient, which included the importance of reporting anyfever of 100.4F (38.0C) or greater to the healthcare team as noted on the provided wallet card and/or magnet. YES - Patient services information. YES - Pt confirms that he has Zofran and Compazine at home. - Tour of treatment room offered. Pt declined. Time Spent: 45 minutes REFERRAL (RECOMMENDATION): Nutrition - already established w/ Ivana. Denisha Duarte RN documented in this encounterSelect Medical [facility], [place]03-02-2023 NoteHNO ID: [id number] Author: Hang Rhodes RN Service: ? Author Type: Registered Nurse Type: Nursing Progress Note Filed: 12/20/2022 11:22 AM Note Text: D/c instructions provided along with anesthesia and MP care paperwork.[facility] [id number] NoteHNO ID: [id number] Author: Mark Valladares MD Service: Interventional Radiology Author Type: Physician Type: Procedures Filed: 12/20/2022 10:32 AM Note Text: RADIOLOGY BRIEF PROCEDURE NOTE Procedure Date: December 20, 2022 Incision/Procedure Start Time: 10:04 AM Incision Close/Procedure End Time: 10:28 AM SURGEON(S)/PROCEDURALIST(S) AND PROFESSOR OF MUSICOLOGY(S): Mark Valladares MD PROCEDURE: SL Port Placement PRE-PROCEDURE DIAGNOSIS: Rectal Cancer POST-PROCEDURE DIAGNOSIS: Same ESTIMATED BLOOD LOSS: 0 ml SPECIMENS: None COMPLICATIONS: None FINDINGS: Placement of RIJ SL Port with catheter tip at superior cavoatrial junction. PLAN: Port is ready for use. SIGNATURE: Mark Valladares MD PATIENT NAME: Mervat Damon DATE: December 20, 2022 TIME: 10:31 AM PAGER/CONTACT #:[facility] [phone] Miscellaneous Notes* Telephone Encounter - Rashmi Lerner - 12/19/2022 1:28 PM EST Patient has been scheduled. Rashmi Lerner * Telephone Encounter - Rashmi Lerner - 12/17/2022 4:02 PM EST Call placed to [facility] for port placement. Left message on voicemail. Rashmi Lerner documented in this encounterSelect [facility] [place] Miscellaneous Notes* Telephone Encounter - Milton Ward RN - 12/19/2022 10:16 AM EST You are scheduled for a Mediport placement, On 12/20/2022. You are to arrive at 0900 am and Report to [facility]: [facility]: Enter through [facility] entrance. Proceed to the 2nd floor Surgical Services Desk for check in. You can expect to be here for 2-4 hours. Diet: Do not eat any solid food after midnight the day of/night before your procedure. You may drink clear liquids until 0800, which means black coffee, apple juice, black tea, or water only. . Medications: Ok to take your cardiac, blood pressure, anti-seizure, and chronic pain medications with a sip of water, please take prior to arrival. Bring your current medication list. Special concerns: Do you have any attached medical devices? No, . Do you use CPAP or BPAP? No. Contrast Dye Prep: Do you have a contrast dye allergy? No. Labs: Lab-work needs to be drawn? Yes Labs to be drawn - PT/ INR Labs need to be drawn at least one day prior to procedure. Please bring a copy of the results if they are not done at a [facility] [place] facility. . Paper Hanger/Transportation: How will you be arriving for your procedure? Private car. You will need a responsible adult to accompany you to and from the procedure. Your tractor trailer driver is required to stay with you until you are taken into the procedure room. Call for any questions [phone] documented in this encounterSelect Medical [facility] [place]02-28-2023 Miscellaneous Notes* Telephone Encounter - Orin Ríos - 12/18/2022 8:36 AM EST Patient coming in on Saturday12/25/22 for follow up treatment. Please add lab orders. Thanks. Orin Ríos MA documented in this encounterSelect Medical [facility] [place]02-27-2023 NoteAd[facility]02-27-2023 History of Present illness Narrative* Nick Anderson MD - 12/17/2022 8:37 AM EST PATIENT NAME: Mervat Damon DATE: 12/17/2022 PRIMARY CARE PHYSICIAN: Dr. Lorenzo Olson OTHER PHYSICIANS: Dr. Mervat Slaughter, Dr. Thalia Troy, Dr. Kiko Treadwell, Dr. Vásquez Portions of this encounter note have been copied from my note from 11/19/2022 and has been updated where appropriate, and reflect my current medical decision making from today. CC: This is a 72 year old male with rectal cancer, seen for scheduled follow-up. INTERIM HISTORY: Since the patient's last visit here he has completely recovered from his initial treatment with chemoradiation. Rectal pain has resolved. He still has occasional bright red blood when constipated, otherwise no rectal bleeding. No other GI complaints. Overall he feels well. Energy and appetite are excellent. MEDICATIONS: Current Outpatient Medications Medication Sig oxyCODONE-acetaminophen (PERCOCET) 5-325 mg tablet Take 1 tablet by mouth every 6 hours as needed for pain. finasteride (PROSCAR) 5 mg tablet Take by mouth. HYDROcodone-acetaminophen (NORCO) 5-325 mg per tablet Take 1 tablet by mouth every 8 hours as needed for pain. aloe vera extract-allantoin liqd Apply to affected area. (Patient not taking: Reported on 12/10/2022) ondansetron (ZOFRAN) 8 mg tablet Take 1 tablet by mouth every 8 hours as needed for nausea/vomiting. prochlorperazine (COMPAZINE) 10 mg tablet Take 1 tablet by mouth every 6 hours as needed. acetaminophen 325 mg cap Take by mouth. ibuprofen (MOTRIN) 400 mg tablet Take 400 mg by mouth every 6 hours as needed. predniSONE (DELTASONE) 5 mg tablet Take 5 mg by mouth once daily. valsartan (DIOVAN) 80 mg tablet Take 80 mg by mouth once daily. carvedilol (COREG) 6.25 mg tablet Take 6.25 mg by mouth once daily. folic acid 1 mg tablet Take 1 mg by mouth once daily. Glucosamine Sulfate 500 mg tab Take 1 tablet by mouth once daily. tamsulosin ER (FLOMAX) 0.4 mg cap Take 0.4 mg by mouth twice daily. Ascorbic Acid 100 mg tablet Take 100 mg by mouth twice daily. No current facility-administered medications for this visit. ALLERGIES: ALLERGIES No Known Allergies PAST MEDICAL HISTORY: PAST MEDICAL HISTORY Diagnosis Date Acute low back pain with possible spinal stenosis of less than six weeks' duration Adenocarcinoma of rectum (HCC) Arthritis Bilateral renal cysts peripelvic BPH with urinary obstruction Cholelithiasis History of kidney stones Non-ischemic cardiomyopathy (HCC) Pulmonary emboli (HCC) 2020 left lower lobe RA (rheumatoid arthritis) (HCC) PAST SURGICAL HISTORY: PAST SURGICAL HISTORY Procedure Laterality Date COLONOSCOPY HAMMERTOE REVISION, ONE TOE HEMORRHOID SURGERY HX HERNIA REPAIR HX LITHOTRIPSY PROC UNILATERAL REMV CATARACT EXTRACAP,INSERT LENS FAMILY HISTORY: FAMILY HISTORY Problem Relation Age of Onset Pancreatic Cancer Mother Cancer Father bladder Liver Cancer Sister Cancer Brother Thyroid and Prostate SOCIAL HISTORY: Social History Tobacco Use Smoking status: Never Smokeless tobacco: Never Vaping Use Vaping Use: Never used Substance Use Topics Alcohol use: Yes Comment: rarely Drug use: No REVIEW OF SYSTEMS: General: No weight loss, malaise or fevers. HEENT: Negative for frequent or significant headaches. No changes in hearing or vision, no nose bleeds or other nasal problems. Respiratory: Negative for cough, wheezing or shortness of breath. Cardiovascular: Negative for chest pain, leg swelling or palpitations. GI: Negative for abdominal discomfort, blood in stools or black stools or change in bowel habits. See HPI. : No history of dysuria, frequency or incontinence. Musculoskeletal: Negative for joint pain or swelling, back pain and muscle pain. Skin: Negative for lesions, rash and itching. Hematology/Lymphology: Negative for prolonged bleeding, bruising easily or swollen nodes. Neuro: No history of headaches, syncope, paralysis, seizures or tremors PHYSICAL EXAM: BP 111/63 Pulse 71 Temp 36.3 C (97.3 F) (Temporal) Resp 16 Ht 186.2 cm (6' 1.31 ) Wt 111.2 kg (245 lb 3.2 oz) SpO2 100% BMI 32.08 kg/m ECOG 0 Exam limited to gross visualization where appropriate due to COVID-19. Gen.: This is an age-appropriate patient in no acute distress. Head: Appears atraumatic with no visible lesions. Eyes: Pupils equally round and reactive to light, extraocular muscles are intact. Neck: Supple. Mouth: Masked. Respiratory: Appears to be respiring comfortably. Neurologic: Nonfocal to gross visualization. Alert and oriented 3. Psychiatric: No evidence of inappropriate anxiety or depression. Skin: Visible areas of skin without rash, lesions, wounds or petechiae. PATHOLOGY: 08/20/2022 Colonoscopic biopsy ([facility]) Adenocarcinoma of colon (mass at anal verge) Mismatch repair gene -normal expression RADIOLOGY/OTHER STUDIES: 12/10/2022 CT chest IMPRESSION: 1. Multiple indeterminate noncalcified pulmonary nodules measuring up to 1 cm are unchanged since 09/11/2022. No enlarging nodule is identified. 2. Unchanged enlarged mediastinal lymph nodes. 3. Please refer to concurrently acquired and separately reported abdomen CT for findings related to the upper abdomen. 12/10/2022 CT abdomen/pelvis IMPRESSION: 1. No evidence of metastatic disease within the abdomen/pelvis. 2. The known rectal neoplasm is not well delineated on this exam. Circumferential urinary bladder wall thickening is likely secondary to treatment-related cystitis. 3. Diverticulosis coli, without associated inflammation. 4. Please refer to concurrently acquired and separately reported chest CT for findings related to the thorax. 10/01/2022 MRI abdomen ([facility]) No MRI evidence of liver lesion 09/25/2022 PET scan IMPRESSION: Head and Neck: * No hypermetabolic foci Chest: * Hypermetabolic mediastinal lymphadenopathy represent inflammatory/infectious etiology versus neoplastic. * Redemonstration of a few pulmonary nodules measuring up to 7 mm which are not well assessed on PET/CT given size, recommend follow-up with chest CT as clinically warranted. Abdomen and pelvis: * Hypermetabolic focus within the distal rectum at the site of previously visualized rectal cancer, better assessed on prior MRI. Musculoskeletal: * No neoplastic hypermetabolic lesions 09/11/2022 MRI pelvis ([facility]) Low rectal neoplasm with suspected early invasion of the internal anal sphincter at the upper canal(MRI category T3b, N0). Few nonenlarged 2 to 3 mm mesorectal lymph nodes. No suspicious lymphadenopathy. 09/11/2022 CT chest, abdomen, pelvis ([facility]) Possible low-attenuation lesion right hepatic lobe under centimeter in size. MRI could better characterize this should be performed with IV contrast. Nodular density within the left adrenal gland which could represent metastasis or adenoma. Multiple noncalcified pulmonary nodules worrisome for metastatic disease. Largest measures approxi-1 cm in the right upper lobe. LABORATORY DATA: Hemoglobin (g/dL) Date Value 12/17/2022 12.9 08/04/2018 14.3 Hematocrit (%) Date Value 12/17/2022 38.5 08/04/2018 43.1 WBC (k/uL) Date Value 12/17/2022 5.79 08/04/2018 6.24 Platelet Count (k/uL) Date Value 12/17/2022 200 08/04/2018 216 CEA 09/05/2022 14.4 09/17/2022 15.7 10/02/2022 14.1 10/29/2022 10.5 ASSESSMENT/PLAN: 1. 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 Pelvic MRI confirmed T3bN0 disease. However, baseline CT scans were abnormal indicating bilateral pulmonary nodules and a suspicious liver lesion. PET scan 09/25/2022 revealed low-level FDG uptake in the mediastinal nodes of unclear significance, but no uptake in the pulmonary nodules. Liver MRI was negative. Mediastinal EBUS biopsy 10/10/2022 was negative. It was felt the patienthad localized disease, and recommendations were to proceed with neoadjuvant chemoradiation followedby restaging. Treatment with capecitabine 825 mg/m2 twice daily concurrent with pelvic radiation given 10/08/2022through 11/19/2022. With treatment the patient's rectal pain and bleeding resolved. Follow-up CT scans 12/10/2022 stable, with no evidence of metastatic disease. Options for management were discussed and we have elected to continue neoadjuvant treatment with chemotherapy. As tolerated we will give FOLFOX every 2 weeks x 6 to 8 cycles. He will then be referredback to colorectal surgery (Dr. Thalia Troy in [place]) for restaging to include pelvic MRI and flex sig. Based on these results surgical options will be discussed. We will arrange for a port to be placed, and the patient will return next week to start chemotherapy. 2. Rheumatoid arthritis Diagnosed 2005. Previous treatment has included steroids, Enbrel, and methotrexate. Currently stable on low-dose steroids (prednisone 5 mg daily). Continue management per rheumatology (Dr. Treadwell) 3. Cardiomyopathy History of nonischemic cardiomyopathy. Currently minimally symptomatic. Continue management per PCP/cardiology. 4. History of cervical spinal stenosis Status post cervical spine fusion. Currently asymptomatic. 5. Benign prostatic hypertrophy History of LUTS consistent with BPH. Minimally symptomatic at this time. Continue management per PCP/urology. 6. History of pulmonary embolism Diagnosed June 2018 after a prolonged car ride. Status post anticoagulation with Eliquis x 2 years. No evidence of ongoing thromboembolic disease. Nick Anderson MD CC: Dr. Thalia Troy ([facility] Colorectal Surgery) documented in this encounterSelect Medical [facility] [place]02-20-2023 NoteAd[facility]02-20-2023 NoteAd[facility]02-20-2023 NoteAd[facility] Hospital01-31-2023 Miscellaneous Notes* Telephone Encounter - Katerina Hargrove RN - 11/20/2022 10:26 AM EST Informed pt of Dr Anderson's message. Pt verbalized understanding and denies further needs at this time. Katerina Hargrove RN * Telephone Encounter - Katerina Hargrove RN - 11/20/2022 8:56 AM EST ----- Message from Nick Anderson MD sent at 11/19/2022 4:49 PM EST ----- Please inform the patient that his kidney function is up slightly. Encourage to drink as much fluidas possible to flush the kidneys . Thanks, BRM documented in this encounterSelect Medical [facility] [place]01-30-2023 NoteAd[facility] Hospital01-30-2023 History of Present illness Narrative* G Saeed Vásquez MD - 11/19/2022 2:38 PM EST Radiation Oncology - On Treatment Review (OTR) Note PATIENT NAME: Mervat Damon PATIENT DIAGNOSIS: Adenocarcinoma of the lower rectum MRI staged [id number] COURSE: definitive and concurrent chemotherapy Current dose: 5040 cGy in 28 fx Planned dose: 5040 cGy in 28 fx SUBJECTIVE: Feeling somewhat better. Bleeding has significantly improved. Still hemorrhoidal irritation. PHYSICAL EXAM: 11/19/22 1412 BP: 95/61 Pulse: 76 Resp: 16 Temp: 36.3 C (97.4 F) TempSrc: Temporal SpO2: 98% Weight: 110.5 kg (243 lb 9.6 oz) KPS: 90 General Appearance: Alert and oriented. No acute distress. IMAGING/LAB RESULTS: Hemoglobin (g/dL) Date Value 11/19/2022 12.8 08/04/2018 14.3 Hematocrit (%) Date Value 11/19/2022 38.1 08/04/2018 43.1 WBC (k/uL) Date Value 11/19/2022 8.49 08/04/2018 6.24 Platelet Count (k/uL) Date Value 11/19/2022 171 08/04/2018 216 EBUS 10/10/22: A - EBUS TRANSBRONCHIAL FINE NEEDLE ASPIRATE, LYMPH NODE - STATION 7 Negative for malignant cells. Benign lymphoid sample. B - EBUS TRANSBRONCHIAL FINE NEEDLE ASPIRATE, LYMPH NODE - 4R Negative for malignant cells. Benign lymphoid sample. C - EBUS TRANSBRONCHIAL FINE NEEDLE ASPIRATE, LYMPH NODE - 11RS Negative for malignant cells. Limited benign lymphoid sample, histiocytes and necrotic debris. TOXICITY ASSESSMENT (CTC v4.0): Fatigue:grade 1 - Fatigue relieved by rest Radiation Dermatitis: grade 1 Diarrhea:grade 1 Proctitis: grade 2 Urinary frequency: grade 0 - No symptoms Dysuria: grade 0 - No symptoms Urinary incontinence: grade 0 (No symptoms) Urinary retention: grade 0 - No symptoms Treatment chart checked: Yes Patient treatment site reviewed and verified:Yes Port films reviewed and current:Yes Medications started: None ASSESSMENT/PLAN: Patient finishing radiation today. Follow-up care discussed. He has continued follow-up with Dr. Anderson. I will plan to see patient back in 3 weeks. Dania Vásquez MD documented in this encounterSelect Medical [facility], [place]01-30-2023 NoteAd[facility] Hospital01-30-2023 NoteAd[facility]01-30-2023 History of Present illness Narrative* Nick Anderson MD - 11/19/2022 8:07 AM EST PATIENT NAME: Mervat Damon DATE: 11/19/2022 PRIMARY CARE PHYSICIAN: Dr. Lorenzo Olson OTHER PHYSICIANS: Dr. Mervat Slaughter, Dr. Thalia Troy, Dr. Kiko Treadwell, Dr. Vásquez Portions of this encounter note have been copied from my note from 10/29/2022 and has been updated where appropriate, and reflect my current medical decision making from today. CC: This is a 72 year old male with rectal cancer, seen for scheduled follow-up. INTERIM HISTORY: The patient has finished chemoradiation, receiving his last treatment today. Last week he had severe rectal pain with BMs, but that has improved. He still has intermittent bright redblood per rectum, particularly after standing for long periods. No other GI symptoms. MEDICATIONS: Current Outpatient Medications Medication Sig oxyCODONE-acetaminophen (PERCOCET) 5-325 mg tablet Take 1 tablet by mouth every 6 hours as needed for pain. finasteride (PROSCAR) 5 mg tablet Take by mouth. hydrocortisone (ANUSOL-HC) 2.5 % rectal cream Use applicator to apply to affected area rectally up to twice daily. Limit duration of use to one week or less, due to risk of mucosal thinning. hydrocortisone (ANUSOL-HC) 25 mg suppository 1 Suppository by RECTAL route twice daily. HYDROcodone-acetaminophen (NORCO) 5-325 mg per tablet Take 1 tablet by mouth every 8 hours as needed for pain. aloe vera extract-allantoin liqd Apply to affected area. phenyleph/mineral oil/petrolat (PREPARATION H RECTAL) by RECTAL route. capecitabine (XELODA) 500 mg tablet Take 4 tablets (2,000 mg) by mouth twice daily with food on days of radiation only (Mon-Fri). ondansetron (ZOFRAN) 8 mg tablet Take 1 tablet by mouth every 8 hours as needed for nausea/vomiting. prochlorperazine (COMPAZINE) 10 mg tablet Take 1 tablet by mouth every 6 hours as needed. acetaminophen 325 mg cap Take by mouth. ibuprofen (MOTRIN) 400 mg tablet Take 400 mg by mouth every 6 hours as needed. predniSONE (DELTASONE) 5 mg tablet Take 5 mg by mouth once daily. valsartan (DIOVAN) 80 mg tablet Take 80 mg by mouth once daily. carvedilol (COREG) 6.25 mg tablet Take 6.25 mg by mouth once daily. folic acid 1 mg tablet Take 1 mg by mouth once daily. Glucosamine Sulfate 500 mg tab Take 1 tablet by mouth once daily. tamsulosin ER (FLOMAX) 0.4 mg cap Take 0.4 mg by mouth twice daily. Ascorbic Acid 100 mg tablet Take 100 mg by mouth twice daily. No current facility-administered medications for this visit. ALLERGIES: ALLERGIES No Known Allergies PAST MEDICAL HISTORY: PAST MEDICAL HISTORY Diagnosis Date Acute low back pain with possible spinal stenosis of less than six weeks' duration Adenocarcinoma of rectum (HCC) Arthritis Bilateral renal cysts peripelvic BPH with urinary obstruction Cholelithiasis History of kidney stones Non-ischemic cardiomyopathy (HCC) Pulmonary emboli (HCC) 2020 left lower lobe RA (rheumatoid arthritis) (HCC) PAST SURGICAL HISTORY: PAST SURGICAL HISTORY Procedure Laterality Date COLONOSCOPY HAMMERTOE REVISION, ONE TOE HEMORRHOID SURGERY HX HERNIA REPAIR HX LITHOTRIPSY PROC UNILATERAL REMV CATARACT EXTRACAP,INSERT LENS FAMILY HISTORY: FAMILY HISTORY Problem Relation Age of Onset Pancreatic Cancer Mother Cancer Father bladder Liver Cancer Sister Cancer Brother Thyroid and Prostate SOCIAL HISTORY: Social History Tobacco Use Smoking status: Never Smokeless tobacco: Never Vaping Use Vaping Use: Never used Substance Use Topics Alcohol use: Yes Comment: rarely Drug use: No REVIEW OF SYSTEMS: General: No weight loss, malaise or fevers. HEENT: Negative for frequent or significant headaches. No changes in hearing or vision, no nose bleeds or other nasal problems. Respiratory: Negative for cough, wheezing or shortness of breath. Cardiovascular: Negative for chest pain, leg swelling or palpitations. GI: Negative for abdominal discomfort, blood in stools or black stools or change in bowel habits. See HPI. : No history of dysuria, frequency or incontinence. Musculoskeletal: Negative for joint pain or swelling, back pain and muscle pain. Skin: Negative for lesions, rash and itching. Hematology/Lymphology: Negative for prolonged bleeding, bruising easily or swollen nodes. Neuro: No history of headaches, syncope, paralysis, seizures or tremors PHYSICAL EXAM: BP 126/87 Pulse 77 Temp 36.4 C (97.6 F) (Temporal) Resp 16 Ht 186.2 cm (6' 1.31 ) Wt 110.5 kg (243 lb 9.6 oz) SpO2 98% BMI 31.87 kg/m ECOG 0 Exam limited to gross visualization where appropriate due to COVID-19. Gen.: This is an age-appropriate patient in no acute distress. Head: Appears atraumatic with no visible lesions. Eyes: Pupils equally round and reactive to light, extraocular muscles are intact. Neck: Supple. Mouth: Masked. Respiratory: Appears to be respiring comfortably. Neurologic: Nonfocal to gross visualization. Alert and oriented 3. Psychiatric: No evidence of inappropriate anxiety or depression. Skin: Visible areas of skin without rash, lesions, wounds or petechiae. PATHOLOGY: 08/20/2022 Colonoscopic biopsy ([facility]) Adenocarcinoma of colon (mass at anal verge) Mismatch repair gene -normal expression RADIOLOGY/OTHER STUDIES: 10/01/2022 MRI abdomen ([facility]) No MRI evidence of liver lesion 09/25/2022 PET scan IMPRESSION: Head and Neck: * No hypermetabolic foci Chest: * Hypermetabolic mediastinal lymphadenopathy represent inflammatory/infectious etiology versus neoplastic. * Redemonstration of a few pulmonary nodules measuring up to 7 mm which are not well assessed on PET/CT given size, recommend follow-up with chest CT as clinically warranted. Abdomen and pelvis: * Hypermetabolic focus within the distal rectum at the site of previously visualized rectal cancer, better assessed on prior MRI. Musculoskeletal: * No neoplastic hypermetabolic lesions 09/11/2022 MRI pelvis ([facility]) Low rectal neoplasm with suspected early invasion of the internal anal sphincter at the upper canal(MRI category T3b, N0). Few nonenlarged 2 to 3 mm mesorectal lymph nodes. No suspicious lymphadenopathy. 09/11/2022 CT chest, abdomen, pelvis ([facility]) Possible low-attenuation lesion right hepatic lobe under centimeter in size. MRI could better characterize this should be performed with IV contrast. Nodular density within the left adrenal gland which could represent metastasis or adenoma. Multiple noncalcified pulmonary nodules worrisome for metastatic disease. Largest measures approxi-1 cm in the right upper lobe. LABORATORY DATA: Hemoglobin (g/dL) Date Value 11/19/2022 12.8 08/04/2018 14.3 Hematocrit (%) Date Value 11/19/2022 38.1 08/04/2018 43.1 WBC (k/uL) Date Value 11/19/2022 8.49 08/04/2018 6.24 Platelet Count (k/uL) Date Value 11/19/2022 171 08/04/2018 216 CEA 09/05/2022 14.4 09/17/2022 15.7 10/02/2022 14.1 10/29/2022 10.5 ASSESSMENT/PLAN: 1. 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 Pelvic MRI confirmed T3bN0 disease. However, baseline CT scans were abnormal indicating bilateral pulmonary nodules and a suspicious liver lesion. PET scan 09/25/2022 revealed low-level FDG uptake in the mediastinal nodes of unclear significance, but no uptake in the pulmonary nodules. Liver MRI was negative. Mediastinal EBUS biopsy 10/10/2022 was negative. It was felt the patienthad localized disease, and recommendations were to proceed with neoadjuvant chemoradiation followedby restaging. Treatment with capecitabine 825 mg/m2 twice daily concurrent with pelvic radiation given 10/08/2022through 11/19/2022. Currently the patient has persistent rectal pain with occasional bright red blood per rectum, otherwise is stable. At this time we will plan to restage with CT scans to rule out any evidence of metastatic disease. We will arrange for the scans in 3 weeks, and I will see him back in 4 weeks for follow-up. Assuminghis scans remain negative we will then discuss options for neoadjuvant chemotherapy with FOLFOX. When systemic treatment is completed we will repeat his pelvic MRI, then refer back to colorectal surgery (Dr. Thalia Troy in [place]) to discuss surgical options. 2. Rheumatoid arthritis Diagnosed 2005. Previous treatment has included steroids, Enbrel, and methotrexate. Currently stable on low-dose steroids (prednisone 5 mg daily). Continue management per rheumatology (Dr. Treadwell) 3. Cardiomyopathy History of nonischemic cardiomyopathy. Currently minimally symptomatic. Continue management per PCP/cardiology. 4. History of cervical spinal stenosis Status post cervical spine fusion. Currently asymptomatic. 5. Benign prostatic hypertrophy History of LUTS consistent with BPH. Minimally symptomatic at this time. Continue management per PCP/urology. 6. History of pulmonary embolism Diagnosed June 2018 after a prolonged car ride. Status post anticoagulation with Eliquis x 2 years. No evidence of ongoing thromboembolic disease. Nick Anderson MD CC: Dr. Thalia Troy ([facility] Colorectal Surgery) documented in this encounterSelect [facility] [place] History of Present illness Narrative* G Saeed Vásquez MD - 11/19/2022 12:00 AM EST [facility] Radiation Oncology Department RADIATION ONCOLOGY - COMPLETION NOTE PATIENT: MERVAT DAMON: 1950 DATES OF TREATMENT: 10/08/2022- 11/19/2022 DIAGNOSIS: Adenocarcinoma of the lower rectum MRI staged [id number] AREA TREATED: rectum DELIVERED DOSE: Area: pelvis rectum 4500 cGy in 25 fractions, 3 Arcs, IMRT, 10 MV with daily CBCT DELIVERED DOSE: Area: rectal boost 540 cGy in 3 fractions, 2 Arcs, IMRT, 10MV with daily CBCT TOTAL: 5040 cGy in 28 fractions ELAPSED TIME: 42 days. CLINICAL SUMMARY: The patient tolerated radiation with moderateradiation related proctitis, diarrhea and fatigue. Bleeding did improve by the end of treatment. The disease response will be assesses in clinic. The patient will be seen again in 2 weeks for postradiation follow-up and has continued followup with medical oncology. Staff Physician Saeed Vásquez M.D. / KG 38:07 AM Electronically Signed cc: Dr. Lorenzo Anderson documented in this encounterSelect Medical [facility], [place]01-26-2023 NoteHNO ID: [id number] Author: Dania Vásquez MD Service: ? Author Type: Physician Type: Progress Notes Filed: 11/15/2022 8:35 AM Note Text: Boost films reviewed.[facility]01-26-2023 History of Present illness Narrative* Dania Vásquez MD - 11/15/2022 8:34 AM EST Boost films reviewed. documented in this encounterSelect Medical [facility], [place]-23-[facility] History of Present illness Narrative* Dania Vásquez MD - 11/12/2022 2:01 PM EST Radiation Oncology - On Treatment Review (OTR) Note PATIENT NAME: Mervat Damon PATIENT DIAGNOSIS: Adenocarcinoma of the lower rectum MRI staged [id number] COURSE: definitive and concurrent chemotherapy Current dose: 4140 cGy in 23fx Planned dose: 5040 cGy in 28 fx SUBJECTIVE: Bleeding improved, other symptoms stable. PHYSICAL EXAM: 11/12/22 1408 BP: 99/65 Pulse: 89 Resp: 18 Temp: 36.4 C (97.5 F) TempSrc: Temporal SpO2: 96% Weight: 110.9 kg (244 lb 6.4 oz) KPS: 90 General Appearance: Alert and oriented. No acute distress. Mild perirectal erythema, no ulcers or desquamation. IMAGING/LAB RESULTS: Hemoglobin (g/dL) Date Value 11/08/2022 12.3 08/04/2018 14.3 Hematocrit (%) Date Value 11/08/2022 36.9 08/04/2018 43.1 WBC (k/uL) Date Value 11/08/2022 5.77 08/04/2018 6.24 Platelet Count (k/uL) Date Value 11/08/2022 157 08/04/2018 216 EBUS 10/10/22: A - EBUS TRANSBRONCHIAL FINE NEEDLE ASPIRATE, LYMPH NODE - STATION 7 Negative for malignant cells. Benign lymphoid sample. B - EBUS TRANSBRONCHIAL FINE NEEDLE ASPIRATE, LYMPH NODE - 4R Negative for malignant cells. Benign lymphoid sample. C - EBUS TRANSBRONCHIAL FINE NEEDLE ASPIRATE, LYMPH NODE - 11RS Negative for malignant cells. Limited benign lymphoid sample, histiocytes and necrotic debris. TOXICITY ASSESSMENT (CTC v4.0): Fatigue:grade 1 - Fatigue relieved by rest Radiation Dermatitis: grade 1 Diarrhea:grade 1 Proctitis: grade 2 Urinary frequency: grade 0 - No symptoms Dysuria: grade 0 - No symptoms Urinary incontinence: grade 0 (No symptoms) Urinary retention: grade 0 - No symptoms Treatment chart checked: Yes Patient treatment site reviewed and verified:Yes Port films reviewed and current:Yes Medications started: None ASSESSMENT/PLAN: Continue local care measures Chart and imaging reviewed. Continue radiation as outlined. Dania Vásquez MD documented in this encounterSelect Medical [facility], [place]01-19-[facility]23 Nurse Note* Re Alvarez LPN - 11/08/2022 2:26 PM EST Mervat Damon presents in office today for: Lab Draw only . Ordering Provider: Saeed Vásquez M.D. Test (s) ordered: CBC Method for obtaining blood: Phlebotomy was performed, accessing right antecubital vein. Needle removed intact. Dressing secured. Patient denies discomfort, dizziness, light-headedness or weakness and left the department without assist. Re Alvarez LPN documented in this encounterSelect Medical [facility], [place]01-18-2023 Miscellaneous Notes* Telephone Encounter - Re Alvarez LPN - 11/07/2022 2:13 PM EST Standing weekly cbc order pending your approval. Please indicate how often you want CBC drawn. Re Alvarez LPN documented in this encounterSelect [facility], [place]01-18-2023 Miscellaneous Notes* Telephone Encounter - Ryan Hollis APRN.ARACELY - 11/07/2022 1:49 PM EST The following approved medication requests have been transmitted electronically. Requested Prescriptions Signed Prescriptions Disp Refills oxyCODONE-acetaminophen (PERCOCET) 5-325 mg tablet 100 tablet 0 Sig: Take 1 tablet by mouth every 6 hours as needed for pain. Authorizing Provider: RYAN HOLLIS APRN.ARACELY * Telephone Encounter - Re Alvarez LPN - 11/07/2022 1:44 PM EST Michael is here for radiation therapy with c/o increasing rectal pain. He is currently taking hydrocodone-apap 5/325mg 1 tablet three times daily with little relief. He states he and Ryan discussed possibly changing pain medication if needed. He would like any prescriptions sent to [facility] pharmacy. Re Alvarez LPN documented in this encounterSelect Medical [facility], [place]01-16-2023 History of Present illness Narrative* G Saeed Vásquez MD - 11/05/2022 10:04 AM EST Radiation Oncology - On Treatment Review (OTR) Note PATIENT NAME: Mervat Damon PATIENT DIAGNOSIS: Adenocarcinoma of the lower rectum MRI staged [id number] COURSE: definitive and concurrent chemotherapy Current dose: 3220 cGy in 16 fx Planned dose: 5040 cGy in 28 fx SUBJECTIVE: Having continued perirectal and rectal discomfort. Better if hemorrhoid not prolapsed. Minimal bleeding. PHYSICAL EXAM: KPS: 90 General Appearance: Alert and oriented. No acute distress. Mild perirectal erythema, no ulcers or desquamation. IMAGING/LAB RESULTS: Hemoglobin (g/dL) Date Value 11/08/2022 12.3 08/04/2018 14.3 Hematocrit (%) Date Value 11/08/2022 36.9 08/04/2018 43.1 WBC (k/uL) Date Value 11/08/2022 5.77 08/04/2018 6.24 Platelet Count (k/uL) Date Value 11/08/2022 157 08/04/2018 216 EBUS 10/10/22: A - EBUS TRANSBRONCHIAL FINE NEEDLE ASPIRATE, LYMPH NODE - STATION 7 Negative for malignant cells. Benign lymphoid sample. B - EBUS TRANSBRONCHIAL FINE NEEDLE ASPIRATE, LYMPH NODE - 4R Negative for malignant cells. Benign lymphoid sample. C - EBUS TRANSBRONCHIAL FINE NEEDLE ASPIRATE, LYMPH NODE - 11RS Negative for malignant cells. Limited benign lymphoid sample, histiocytes and necrotic debris. TOXICITY ASSESSMENT (CTC v4.0): Fatigue:grade 1 - Fatigue relieved by rest Radiation Dermatitis: grade 1 Diarrhea:grade 1 Proctitis: grade 2 Urinary frequency: grade 0 - No symptoms Dysuria: grade 0 - No symptoms Urinary incontinence: grade 0 (No symptoms) Urinary retention: grade 0 - No symptoms Treatment chart checked: Yes Patient treatment site reviewed and verified:Yes Port films reviewed and current:Yes Medications started: None ASSESSMENT/PLAN: Continue sitz bath and anusol for proctitis. Analgesics as needed. Chart and imaging reviewed. Continue radiation as outlined. Dania Vásquez MD documented in this encounterSelect [facility], [place]01-09-2023 History of Present illness Narrative* Ryan Hollis APRN.REMARKETING REP - 10/29/2022 3:32 PM EST PATIENT NAME: Mervat Damon DATE: 10/11/2022 PRIMARY CARE PHYSICIAN: Dr. Lorenzo Olson OTHER PHYSICIANS: Dr. Mervat Slaughter, Dr. Thalia Troy, Dr. Kiko Treadwell, Dr. Vásquez CC: This is a 72 year old male with recently diagnosed rectal cancer, here for follow up. INTERIM HISTORY: Mevrat Damon returns for follow up. He started Xeloda concurrent with radiation on 10/08/2022. He is taking Xeloda 2000 mg at 9 AM and Xeloda 2000 mg at 9 PM Saturday through Saturday. He has completed 13 of 28 planned radiation treatments. He is having increasing rectal discomfort from the radiation. He is taking 2 Vicodin a day. He is now at a point that he can no longer sit and needs to not put any pressure on his rectum. He is having mild rectal bleeding which he is not sure if it is from the tumor or hemorrhoids. He takes Metamucil 2 times a day. He has been applying Aquaphor to the external rectum. He denies hand-foot syndrome. No mouth sores. No diarrhea or GI compl aints. He denies fevers, chills, night sweats and signs/symptoms of infection. MEDICATIONS: Current Outpatient Medications Medication Sig hydrocortisone (ANUSOL-HC) 2.5 % rectal cream Use applicator to apply to affected area rectally up to twice daily. Limit duration of use to one week or less, due to risk of mucosal thinning. hydrocortisone (ANUSOL-HC) 25 mg suppository 1 Suppository by RECTAL route twice daily. HYDROcodone-acetaminophen (NORCO) 5-325 mg per tablet Take 1 tablet by mouth every 8 hours as needed for pain. aloe vera extract-allantoin liqd Apply to affected area. phenyleph/mineral oil/petrolat (PREPARATION H RECTAL) by RECTAL route. capecitabine (XELODA) 500 mg tablet Take 4 tablets (2,000 mg) by mouth twice daily with food on days of radiation only (Sat-Sat). ondansetron (ZOFRAN) 8 mg tablet Take 1 tablet by mouth every 8 hours as needed for nausea/vomiting. prochlorperazine (COMPAZINE) 10 mg tablet Take 1 tablet by mouth every 6 hours as needed. acetaminophen 325 mg cap Take by mouth. ibuprofen (MOTRIN) 400 mg tablet Take 400 mg by mouth every 6 hours as needed. predniSONE (DELTASONE) 5 mg tablet Take 5 mg by mouth once daily. valsartan (DIOVAN) 80 mg tablet Take 80 mg by mouth once daily. carvedilol (COREG) 6.25 mg tablet Take 6.25 mg by mouth once daily. folic acid 1 mg tablet Take 1 mg by mouth once daily. Glucosamine Sulfate 500 mg tab Take 1 tablet by mouth once daily. tamsulosin ER (FLOMAX) 0.4 mg cap Take 0.4 mg by mouth twice daily. Ascorbic Acid 100 mg tablet Take 100 mg by mouth twice daily. No current facility-administered medications for this visit. ALLERGIES: ALLERGIES No Known Allergies PAST MEDICAL HISTORY: PAST MEDICAL HISTORY Diagnosis Date Acute low back pain with possible spinal stenosis of less than six weeks' duration Adenocarcinoma of rectum (HCC) Arthritis Bilateral renal cysts peripelvic BPH with urinary obstruction Cholelithiasis History of kidney stones Non-ischemic cardiomyopathy (HCC) Pulmonary emboli (HCC) 2020 left lower lobe RA (rheumatoid arthritis) (HCC) PAST SURGICAL HISTORY: PAST SURGICAL HISTORY Procedure Laterality Date COLONOSCOPY HAMMERTOE REVISION, ONE TOE HEMORRHOID SURGERY HX HERNIA REPAIR HX LITHOTRIPSY PROC UNILATERAL REMV CATARACT EXTRACAP,INSERT LENS FAMILY HISTORY: FAMILY HISTORY Problem Relation Age of Onset Pancreatic Cancer Mother Cancer Father bladder Liver Cancer Sister Cancer Brother Thyroid and Prostate SOCIAL HISTORY: Social History Tobacco Use Smoking status: Never Smokeless tobacco: Never Vaping Use Vaping Use: Never used Substance Use Topics Alcohol use: Yes Comment: rarely Drug use: No REVIEW OF SYSTEMS: General: No weight loss, malaise or fevers. HEENT: Negative for frequent or significant headaches. No changes in hearing or vision, no nose bleeds or other nasal problems. Respiratory: Negative for cough, wheezing or shortness of breath. Cardiovascular: Negative for chest pain, leg swelling or palpitations. GI: Negative for abdominal discomfort, blood in stools or black stools or change in bowel habits. See HPI. : No history of dysuria, frequency or incontinence. Musculoskeletal: Negative for joint pain or swelling, back pain and muscle pain. Skin: Negative for lesions, rash and itching. Hematology/Lymphology: Negative for prolonged bleeding, bruising easily or swollen nodes. Neuro: No history of headaches, syncope, paralysis, seizures or tremors PHYSICAL EXAM: BP 112/73 Pulse 78 Temp (!) 35.9 C (96.7 F) (Temporal) Resp 16 Ht 186.2 cm (6' 1.31 ) Wt 111.1 kg (245 lb) SpO2 100% BMI 32.05 kg/m ECOG 0 Exam limited to gross visualization where appropriate due to COVID-19. Gen.: This is an age-appropriate patient in no acute distress. Head: Appears atraumatic with no visible lesions. Eyes: Pupils equally round and reactive to light, extraocular muscles are intact. Neck: Supple. Mouth: Masked. Respiratory: Appears to be respiring comfortably. Neurologic: Nonfocal to gross visualization. Alert and oriented 3. Psychiatric: No evidence of inappropriate anxiety or depression. Skin: Visible areas of skin without rash, lesions, wounds or petechiae. PATHOLOGY: 08/20/2022 Colonoscopic biopsy ([facility] [place]) Adenocarcinoma of colon (mass at anal verge) Mismatch repair gene -normal expression RADIOLOGY/OTHER STUDIES: 10/01/2022 MRI abdomen ([facility] [place]) No MRI evidence of liver lesion 09/25/2022 PET scan IMPRESSION: Head and Neck: * No hypermetabolic foci Chest: * Hypermetabolic mediastinal lymphadenopathy represent inflammatory/infectious etiology versus neoplastic. * Redemonstration of a few pulmonary nodules measuring up to 7 mm which are not well assessed on PET/CT given size, recommend follow-up with chest CT as clinically warranted. Abdomen and pelvis: * Hypermetabolic focus within the distal rectum at the site of previously visualized rectal cancer, better assessed on prior MRI. Musculoskeletal: * No neoplastic hypermetabolic lesions 09/11/2022 MRI pelvis ([facility]) Low rectal neoplasm with suspected early invasion of the internal anal sphincter at the upper canal(MRI category T3b, N0). Few nonenlarged 2 to 3 mm mesorectal lymph nodes. No suspicious lymphadenopathy. 09/11/2022 CT chest, abdomen, pelvis ([facility]) Possible low-attenuation lesion right hepatic lobe under centimeter in size. MRI could better characterize this should be performed with IV contrast. Nodular density within the left adrenal gland which could represent metastasis or adenoma. Multiple noncalcified pulmonary nodules worrisome for metastatic disease. Largest measures approxi-1 cm in the right upper lobe. LABORATORY DATA: Hemoglobin (g/dL) Date Value 10/29/2022 13.6 08/04/2018 14.3 Hematocrit (%) Date Value 10/29/2022 41.0 08/04/2018 43.1 WBC (k/uL) Date Value 10/29/2022 6.08 08/04/2018 6.24 Platelet Count (k/uL) Date Value 10/29/2022 165 08/04/2018 216 CEA 09/05/2022 14.4 09/17/2022 15.7 10/02/2022 14.1 10/29/2022 10.5 ASSESSMENT/PLAN: 1. 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 Pelvic MRI confirmed T3bN0 disease. However, baseline CT scans were abnormal indicating bilateral pulmonary nodules and a suspicious liver lesion. PET scan 09/25/2022 revealed low-level FDG uptake in the mediastinal nodes of unclear significance, but no uptake in the pulmonary nodules. Liver MRI was negative. Patient started capecitabine concurrent with radiation on 10/08/2022. Patient will continue capecitabine 825 mg/m2 twice daily concurrent with pelvic radiation. We will see the patient back in 3 weeks for follow-up and labs. After completing chemoradiation we will restage, and based on tolerance and response would considercontinued neoadjuvant treatment with FOLFOX chemotherapy. The patient would then be evaluated for surgical resection. We will confer with [facility] pulmonary whether further evaluation of his abnormal mediastinal lymph nodes (identified on PET scan) is warranted. If not we will repeat chest CT at 3 months. 2. Rheumatoid arthritis Diagnosed 2005. Previous treatment has included steroids, Enbrel, and methotrexate. Currently stable on low-dose steroids (prednisone 5 mg daily). Continue management per rheumatology (Dr. Treadwell) 3. Cardiomyopathy History of nonischemic cardiomyopathy. Currently minimally symptomatic. Continue management per PCP/cardiology. 4. History of cervical spinal stenosis Status post cervical spine fusion. Currently asymptomatic. 5. Benign prostatic hypertrophy History of LUTS consistent with BPH. Minimally symptomatic at this time. Continue management per PCP/urology. 6. History of pulmonary embolism Diagnosed June 2018 after a prolonged car ride. Status post anticoagulation with Eliquis x 2 years. No evidence of ongoing thromboembolic disease. Ryan Hollis APRN.REMARKETING REP CC: Dr. Thalia Troy ([facility] Colorectal Surgery) I spent a total of 30 minutes on the date of the service which included preparing to see the patient, [id number] patient care, completing clinical documentation, obtaining and/or reviewing separately obtained history, performing a medically appropriate examination, counseling and educating the pat ient/family/caregiver, ordering medications, tests, or procedures, independently interpreting results (not separately reported), and communicating results to the patient/family/caregiver. documented in this encounterSelect Medical [facility], [place]01-09-2023 History of Present illness Narrative* Dennis Cheung MD - 10/29/2022 2:00 PM EST Radiation Oncology - On Treatment Review (OTR) Note PATIENT NAME: Mervat Damon PATIENT DIAGNOSIS: Adenocarcinoma of the lower rectum MRI staged [id number] COURSE: definitive and concurrent chemotherapy Current dose: 2340 cGy in 13 fx Planned dose: 5040 cGy in 28 fx SUBJECTIVE: Notes increasing perianal pain and discomfort which he is managing with Vicodin. Pain is present at all times but worse with bowel movements or sitting. He also notes aggravation of his hemorrhoids which he is managing with hemorrhoid cream and sitz bath's and hydrocortisone. He also uses a moisturizer denies any skin breakdown. He denies any constipation and is using Metamucil and does note blood with wiping. He has occasional nausea managed with antiemetics. He feels that his urinary's flow has been slow with incomplete emptying and is on Flomax. He endorses fatigue with stable appetite and hydration. Last 5 Encounter Wt Readings: Date: Wt: 10/29/2022 111.1 kg (245 lb) 10/29/2022 111.1 kg (245 lb) 10/23/2022 112 kg (247 lb) 10/16/2022 111.4 kg (245 lb 9.6 oz) 10/11/2022 113.2 kg (249 lb 9.6 oz) PHYSICAL EXAM: KPS: 90 General Appearance: Alert and oriented. No acute distress. IMAGING/LAB RESULTS: None TOXICITY ASSESSMENT (CTC v4.0): Fatigue:grade 1 - Fatigue relieved by rest Diarrhea:grade 0 - No symptoms Proctitis: grade 1 - Rectal discomfort, intervention not indicated Urinary frequency: grade 1 - present Dysuria: grade 1 - Microscopic hematuria; minimal increase in frequency, urgency, dysuria, or nocturia; new onset of incontinence Urinary incontinence: grade 0 (No symptoms) Urinary retention: grade 1 - Urinary, suprapubic or intermittent catheter placement not indicated; able to void with some residual Treatment chart checked: Yes Patient treatment site reviewed and verified:Yes Port films reviewed and current:Yes Medications started: None ASSESSMENT/PLAN: Clinically stable. Toxicity within expected parameters. Continue radiation treatment as planned. Dennis Cheung MD documented in this encounterSelect Medical [facility], [place]23 Hospital Discharge instructions Patient Education 10/24/2022 13:18:32 Erectile Dysfunction Erectile Dysfunction Erectile dysfunction (ED) is the inability to get or keep an erection in order to have sexual intercourse. Erectile dysfunction may include: Inability to get an erection. Lack of enough hardness of the erection to allow penetration. Loss of the erection before sex is finished. What are the causes? This condition may be caused by: Certain medicines, such as: ?Pain relievers. ?Antihistamines. ?Antidepressants. ?Blood pressure medicines. ?Water pills (diuretics). ?Ulcer medicines. ?Muscle relaxants. ?Drugs. Excessive drinking. Psychological causes, such as: ?Anxiety. ?Depression. ?Sadness. ?Exhaustion. ?Performance fear. ?Stress. Physical causes, such as: ?Artery problems. This may include diabetes, smoking, liver disease, or atherosclerosis. ?High blood pressure. ?Hormonal problems, such as low testosterone. ?Obesity. ?Nerve problems. This may include back or pelvic injuries, diabetes mellitus, multiple sclerosis, or Parkinson disease. What are the signs or symptoms? Symptoms of this condition include: Inability to get an erection. Lack of enough hardness of the erection to allow penetration. Loss of the erection before sex is finished. Normal erections at some times, but with frequent unsatisfactory episodes. Low sexual satisfaction in either partner due to erection problems. A curved penis occurring with erection. The curve may cause pain or the penis may be too curved to allow for intercourse. Never having nighttime erections. How is this diagnosed? This condition is often diagnosed by: Performing a physical exam to find other diseases or specific problems with the penis. Asking you detailed questions about the problem. Performing blood tests to check for diabetes mellitus or to measure hormone levels. Performing other tests to check for underlying health conditions. Performing an ultrasound exam to check for scarring. Performing a test to check blood flow to the penis. Doing a sleep study at home to measure nighttime erections. How is this treated? This condition may be treated by: Medicine taken by mouth to help you achieve an erection (oral medicine). Hormone replacement therapy to replace low testosterone levels. Medicine that is injected into the penis. Your health care provider may instruct you how to give yourself these injections at home. Vacuum pump. This is a pump with a ring on it. The pump and ring are placed on the penis and used to create pressure that helps the penis become erect. Penile implant surgery. In this procedure, you may receive: ?An inflatable implant. This consists of cylinders, a pump, and a reservoir. The cylinders can be inflated with a fluid that helps to create an erection, and they can be deflated after intercourse. ?A semi-rigid implant. This consists of two silicone rubber rods. The rods provide some rigidity. They are also flexible, so the penis can both curve downward in its normal position and become straight for sexual intercourse. Blood vessel surgery, to improve blood flow to the penis. During this procedure, a blood vessel from a different part of the body is placed into the penis to allow blood to flow around (bypass) damaged or blocked blood vessels. Lifestyle changes, such as exercising more, losing weight, and quitting smoking. Follow these instructions at home: Medicines Take [id number] and prescription medicines only as told by your health care provider. Do not increase the dosage without first discussing it with your health care provider. If you are using self-injections, perform injections as directed by your health care provider. Makesure to avoid any veins that are on the surface of the penis. After giving an injection, apply pressure to the injection site for 5 minutes. General instructions Exercise regularly, as directed by your health care provider. Work with your health care provider to lose weight, if needed. Do not use any products that contain nicotine or tobacco, such as cigarettes and e-cigarettes. If you need help quitting, ask your health care provider. Before using a vacuum pump, read the instructions that come with the pump and discuss any questionswith your health care provider. Keep all follow-up visits as told by your health care provider. This is important. Contact a health care provider if: You feel nauseous. You vomit. Get help right away if: You are taking oral or injectable medicines and you have an erection that lasts longer than 4 hours. If your health care provider is unavailable, go to the nearest emergency room for evaluation. An erection that lasts much longer than 4 hours can result in permanent damage to your penis. You have severe pain in your groin or abdomen. You develop redness or severe swelling of your penis. You have redness spreading up into your groin or lower abdomen. You are unable to urinate. You experience chest pain or a rapid heart beat (palpitations) after taking oral medicines. Summary Erectile dysfunction (ED) is the inability to get or keep an erection during sexual intercourse. This problem can usually be treated successfully. This condition is diagnosed based on a physical exam, your symptoms, and tests to determine the cause. Treatment varies depending on the cause, and may include medicines, hormone therapy, surgery, orvacuum pump. You may need follow-up visits to make sure that you are using your medicines or devices correctly. Get help right away if you are taking or injecting medicines and you have an erection that lasts longer than 4 hours. This information is not intended to replace advice given to you by your health care provider. Make sure you discuss any questions you have with your health care provider. Document Released: 10/04/2001 Document Revised: 09/19/2018 Document Reviewed: 10/23/2017 [employer] Patient Education 2020 [employer]. Follow Up Care 09/28/2021 14:33:01 With:VIVI ESCOBAR, ASHLEY Perez, URL Address: [address] [place] [address] When:3 months [facility] 01-03-2023 History of Present illness Narrative* Oliva Brewer RPh - 10/23/2022 2:31 PM EST Opened in error. documented in this encounterSelect [facility] [place] History of Present illness Narrative* Dania Vásquez MD - 10/23/2022 8:03 AM EST Radiation Oncology - On Treatment Review (OTR) Note PATIENT NAME: Mervat Damon PATIENT DIAGNOSIS: Adenocarcinoma of the lower rectum MRI staged [id number] COURSE: definitive and concurrent chemotherapy Current dose: 1620 cGy in 9 fx Planned dose: 5040 cGy in 28 fx SUBJECTIVE: Occasional feeling hemorrhoids protruding, better after sitz bath. Rectal pain 2-3 out of 10 on, staying active. No significant bleeding. PHYSICAL EXAM: 10/23/22 0811 BP: 110/69 Pulse: 78 Resp: 16 Temp: 36.3 C (97.3 F) SpO2: 97% Weight: 112 kg (247 lb) KPS: 90 General Appearance: Alert and oriented. No acute distress. IMAGING/LAB RESULTS: Hemoglobin (g/dL) Date Value 10/11/2022 14.0 08/04/2018 14.3 Hematocrit (%) Date Value 10/11/2022 42.6 08/04/2018 43.1 WBC (k/uL) Date Value 10/11/2022 20.52 08/04/2018 6.24 Platelet Count (k/uL) Date Value 10/11/2022 207 08/04/2018 216 EBUS 10/10/22: A - EBUS TRANSBRONCHIAL FINE NEEDLE ASPIRATE, LYMPH NODE - STATION 7 Negative for malignant cells. Benign lymphoid sample. B - EBUS TRANSBRONCHIAL FINE NEEDLE ASPIRATE, LYMPH NODE - 4R Negative for malignant cells. Benign lymphoid sample. C - EBUS TRANSBRONCHIAL FINE NEEDLE ASPIRATE, LYMPH NODE - 11RS Negative for malignant cells. Limited benign lymphoid sample, histiocytes and necrotic debris. TOXICITY ASSESSMENT (CTC v4.0): Fatigue:grade 1 - Fatigue relieved by rest Radiation Dermatitis: grade 0 - No symptoms Diarrhea:grade 0 - No symptoms Proctitis: grade 1 Urinary frequency: grade 0 - No symptoms Dysuria: grade 0 - No symptoms Urinary incontinence: grade 0 (No symptoms) Urinary retention: grade 0 - No symptoms Treatment chart checked: Yes Patient treatment site reviewed and verified:Yes Port films reviewed and current:Yes Medications started: None ASSESSMENT/PLAN: Patient doing fairly well. Recommend Anusol HC. Continue hydrocodone as needed forpain. Chart and imaging reviewed. Continue radiation as outlined. Dania Vásquez MD documented in this encounterSelect Medical [facility] [place]12-30-2022 History of Present illness Narrative* Hoa Owen RD - 10/19/2022 12:54 PM EST Oncology Nutrition Therapy Progress Note RECOMMENDED MALNUTRITION DIAGNOSIS: NO MALNUTRITION IDENTIFIED Some elements copied from my note on 09/25/2022, have been updated and all reflect current decision making from today, 10/19/2022 Nutrition Intervention: -continue current meal pattern of 3 meals/day + snack(s) prn -encouraged good hydration -provided contact information for any further questions/concerns Nutrition Monitoring & Evaluation: -PO Intake -Wt status -BM's -Biochemical Markers -Plan of care Date of last encounter: September 25, 2022 Patient met goal(s): No Patient's symptoms are: None Pt presents for nutrition counseling follow up. Pt currently being treated with RT, Xeloda. Pt denies any current chewing/swallowing issues. Pt denies any current N/V/D/C. Pt's weight remains stable. Appetite and intakes are good. Pt reports no changes to po intakes. Pt denies any current nutrition related questions or concerns at this time. Dietitian remains available. READINESS TO LEARN Cognitive ability: Alert and oriented Motivation to learn: Interested Family support: High - Very involved in pt care Instruction provided to: Patient and family member Patient learns best by: Multiple Methods Factors affecting learning: None Physical limitations affecting learning: None Educational materials provided: none this visit Need for Follow up: prn Referred/Supervised by: Sharyn BATISTA Billing Type: Re-assess/15 min 1 unit Billed Time: 15 minutes Signed by: Hoa Owen MS, RDN, LD documented in this encounterSelect [facility] [place]12-27-2022 History of Present illness Narrative* Dania Vásquez MD - 10/16/2022 1:16 PM EST Radiation Oncology - On Treatment Review (OTR) Note PATIENT NAME: Mervat Damon PATIENT DIAGNOSIS: Adenocarcinoma of the lower rectum MRI staged [id number] COURSE: definitive and concurrent chemotherapy Current dose: 900 cGy in 5 fx Planned dose: 5040 cGy in 28 fx SUBJECTIVE: Patient states perirectal pain somewhat increased. No other new problems. PHYSICAL EXAM: KPS: 90 General Appearance: Alert and oriented. No acute distress. IMAGING/LAB RESULTS: Hemoglobin (g/dL) Date Value 10/11/2022 14.0 08/04/2018 14.3 Hematocrit (%) Date Value 10/11/2022 42.6 08/04/2018 43.1 WBC (k/uL) Date Value 10/11/2022 20.52 08/04/2018 6.24 Platelet Count (k/uL) Date Value 10/11/2022 207 08/04/2018 216 EBUS 10/10/22: A - EBUS TRANSBRONCHIAL FINE NEEDLE ASPIRATE, LYMPH NODE - STATION 7 Negative for malignant cells. Benign lymphoid sample. B - EBUS TRANSBRONCHIAL FINE NEEDLE ASPIRATE, LYMPH NODE - 4R Negative for malignant cells. Benign lymphoid sample. C - EBUS TRANSBRONCHIAL FINE NEEDLE ASPIRATE, LYMPH NODE - 11RS Negative for malignant cells. Limited benign lymphoid sample, histiocytes and necrotic debris. TOXICITY ASSESSMENT (CTC v4.0): Fatigue:grade 1 - Fatigue relieved by rest Radiation Dermatitis: grade 0 - No symptoms Diarrhea:grade 0 - No symptoms Proctitis: grade 0 - No symptoms Urinary frequency: grade 0 - No symptoms Dysuria: grade 0 - No symptoms Urinary incontinence: grade 0 (No symptoms) Urinary retention: grade 0 - No symptoms Treatment chart checked: Yes Patient treatment site reviewed and verified:Yes Port films reviewed and current:Yes Medications started: None ASSESSMENT/PLAN: Patient doing fairly well. Fortunately staging with EBUS negative. Patient still having perirectal pain, anticipate improvement in perirectal pain as treatment continues. Discussed diarrhea management. Chart and imaging reviewed. Continue radiation as outlined. Dania Vásquez MD documented in this encounterSelect [facility] [place]12-22-2022 History of Present illness Narrative* Ryan Hollis APRN.REMARKETING REP - 10/11/2022 2:55 PM EST PATIENT NAME: Mervat Damon DATE: 10/11/2022 PRIMARY CARE PHYSICIAN: Dr. Lorenzo Olson OTHER PHYSICIANS: Dr. Mervat Slaughter, Dr. ThaliaDr. Kiko Davenport, Dr. Vásquez CC: This is a 72 year old male with recently diagnosed rectal cancer, here for follow up. INTERIM HISTORY: Mervat Damon returns for follow up. He started Xeloda concurrent with radiation on 10/08/2022. He is taking Xeloda 2000 mg at 9 AM and Xeloda 2000 mg at 9 PM. He is tolerating it well. He denies hand-foot syndrome. No mouth sores. No diarrhea or GI complaints. He has a littleblood from his rectum at times but nothing like he had 2 months ago. He has some rectal soreness. He just recently completed a Medrol Dosepak. He remains on prednisone 5 mg daily which helps to keep his arthritis in his ankles at bay. He denies fevers, chills, night sweats and signs/symptoms of infection. Overall he is tolerating treatment well. MEDICATIONS: Current Outpatient Medications Medication Sig aloe vera extract-allantoin liqd Apply to affected area. phenyleph/mineral oil/petrolat (PREPARATION H RECTAL) by RECTAL route. HYDROcodone-acetaminophen (NORCO) 5-325 mg per tablet Take 1 tablet by mouth every 8 hours as needed for pain. capecitabine (XELODA) 500 mg tablet Take 4 tablets (2,000 mg) by mouth twice daily with food on days of radiation only (Mon-Fri). ondansetron (ZOFRAN) 8 mg tablet Take 1 tablet by mouth every 8 hours as needed for nausea/vomiting. prochlorperazine (COMPAZINE) 10 mg tablet Take 1 tablet by mouth every 6 hours as needed. acetaminophen 325 mg cap Take by mouth. ibuprofen (MOTRIN) 400 mg tablet Take 400 mg by mouth every 6 hours as needed. predniSONE (DELTASONE) 5 mg tablet Take 5 mg by mouth once daily. valsartan (DIOVAN) 80 mg tablet Take 80 mg by mouth once daily. carvedilol (COREG) 6.25 mg tablet Take 6.25 mg by mouth once daily. folic acid 1 mg tablet Take 1 mg by mouth once daily. Glucosamine Sulfate 500 mg tab Take 1 tablet by mouth once daily. tamsulosin ER (FLOMAX) 0.4 mg cap Take 0.4 mg by mouth twice daily. Ascorbic Acid 100 mg tablet Take 100 mg by mouth twice daily. No current facility-administered medications for this visit. ALLERGIES: ALLERGIES No Known Allergies PAST MEDICAL HISTORY: PAST MEDICAL HISTORY Diagnosis Date Acute low back pain with possible spinal stenosis of less than six weeks' duration Adenocarcinoma of rectum (HCC) Arthritis Bilateral renal cysts peripelvic BPH with urinary obstruction Cholelithiasis History of kidney stones Non-ischemic cardiomyopathy (HCC) Pulmonary emboli (HCC) 2020 left lower lobe RA (rheumatoid arthritis) (HCC) PAST SURGICAL HISTORY: PAST SURGICAL HISTORY Procedure Laterality Date COLONOSCOPY HAMMERTOE REVISION, ONE TOE HEMORRHOID SURGERY HX HERNIA REPAIR HX LITHOTRIPSY PROC UNILATERAL REMV CATARACT EXTRACAP,INSERT LENS FAMILY HISTORY: FAMILY HISTORY Problem Relation Age of Onset Pancreatic Cancer Mother Cancer Father bladder Liver Cancer Sister Cancer Brother Thyroid and Prostate SOCIAL HISTORY: Social History Tobacco Use Smoking status: Never Smokeless tobacco: Never Vaping Use Vaping Use: Never used Substance Use Topics Alcohol use: Yes Comment: rarely Drug use: No REVIEW OF SYSTEMS: General: No weight loss, malaise or fevers. HEENT: Negative for frequent or significant headaches. No changes in hearing or vision, no nose bleeds or other nasal problems. Respiratory: Negative for cough, wheezing or shortness of breath. Cardiovascular: Negative for chest pain, leg swelling or palpitations. GI: Negative for abdominal discomfort, blood in stools or black stools or change in bowel habits. See HPI. : No history of dysuria, frequency or incontinence. Musculoskeletal: Negative for joint pain or swelling, back pain and muscle pain. Skin: Negative for lesions, rash and itching. Hematology/Lymphology: Negative for prolonged bleeding, bruising easily or swollen nodes. Neuro: No history of headaches, syncope, paralysis, seizures or tremors PHYSICAL EXAM: BP 147/82 Pulse 97 Temp 36.4 C (97.6 F) (Temporal) Resp 16 Ht 186.2 cm (6' 1.31 ) Wt 113.2 kg (249 lb 9.6 oz) SpO2 96% BMI 32.66 kg/m ECOG 0 Exam limited to gross visualization where appropriate due to COVID-19. Gen.: This is an age-appropriate patient in no acute distress. Head: Appears atraumatic with no visible lesions. Eyes: Pupils equally round and reactive to light, extraocular muscles are intact. Neck: Supple. Mouth: Masked. Respiratory: Appears to be respiring comfortably. Neurologic: Nonfocal to gross visualization. Alert and oriented 3. Psychiatric: No evidence of inappropriate anxiety or depression. Skin: Visible areas of skin without rash, lesions, wounds or petechiae. PATHOLOGY: 08/20/2022 Colonoscopic biopsy ([facility]) Adenocarcinoma of colon (mass at anal verge) Mismatch repair gene -normal expression RADIOLOGY/OTHER STUDIES: 10/01/2022 MRI abdomen ([facility]) No MRI evidence of liver lesion 09/25/2022 PET scan IMPRESSION: Head and Neck: * No hypermetabolic foci Chest: * Hypermetabolic mediastinal lymphadenopathy represent inflammatory/infectious etiology versus neoplastic. * Redemonstration of a few pulmonary nodules measuring up to 7 mm which are not well assessed on PET/CT given size, recommend follow-up with chest CT as clinically warranted. Abdomen and pelvis: * Hypermetabolic focus within the distal rectum at the site of previously visualized rectal cancer, better assessed on prior MRI. Musculoskeletal: * No neoplastic hypermetabolic lesions 09/11/2022 MRI pelvis ([facility]) Low rectal neoplasm with suspected early invasion of the internal anal sphincter at the upper canal(MRI category T3b, N0). Few nonenlarged 2 to 3 mm mesorectal lymph nodes. No suspicious lymphadenopathy. 09/11/2022 CT chest, abdomen, pelvis ([facility]) Possible low-attenuation lesion right hepatic lobe under centimeter in size. MRI could better characterize this should be performed with IV contrast. Nodular density within the left adrenal gland which could represent metastasis or adenoma. Multiple noncalcified pulmonary nodules worrisome for metastatic disease. Largest measures approxi-1 cm in the right upper lobe. LABORATORY DATA: Hemoglobin (g/dL) Date Value 10/11/2022 14.0 08/04/2018 14.3 Hematocrit (%) Date Value 10/11/2022 42.6 08/04/2018 43.1 WBC (k/uL) Date Value 10/11/2022 20.52 08/04/2018 6.24 Platelet Count (k/uL) Date Value 10/11/2022 207 08/04/2018 216 CEA 09/05/2022 14.4 09/17/2022 15.7 ASSESSMENT/PLAN: 1. 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 Pelvic MRI confirmed T3bN0 disease. However, baseline CT scans were abnormal indicating bilateral pulmonary nodules and a suspicious liver lesion. PET scan 09/25/2022 revealed low-level FDG uptake in the mediastinal nodes of unclear significance, but no uptake in the pulmonary nodules. Liver MRI was negative. Patient started capecitabine concurrent with radiation on 10/08/2022. Patient will continue capecitabine 825 mg/m2 twice daily concurrent with pelvic radiation. We will see the patient back in 2 to 3 weeks for follow-up and labs. After completing chemoradiation we will restage, and based on tolerance and response would considercontinued neoadjuvant treatment with FOLFOX chemotherapy. The patient would then be evaluated for surgical resection. We will confer with [facility] pulmonary whether further evaluation of his abnormal mediastinal lymph nodes (identified on PET scan) is warranted. If not we will repeat chest CT at 3 months. 2. Rheumatoid arthritis Diagnosed 2005. Previous treatment has included steroids, Enbrel, and methotrexate. Currently stable on low-dose steroids (prednisone 5 mg daily). Continue management per rheumatology (Dr. Treadwell) 3. Cardiomyopathy History of nonischemic cardiomyopathy. Currently minimally symptomatic. Continue management per PCP/cardiology. 4. History of cervical spinal stenosis Status post cervical spine fusion. Currently asymptomatic. 5. Benign prostatic hypertrophy History of LUTS consistent with BPH. Minimally symptomatic at this time. Continue management per PCP/urology. 6. History of pulmonary embolism Diagnosed June 2018 after a prolonged car ride. Status post anticoagulation with Eliquis x 2 years. No evidence of ongoing thromboembolic disease. Ryan Hollis APRN.CNP CC: Dr. Thalia Troy ([facility] Colorectal Surgery) I spent a total of 30 minutes on the date of the service which included preparing to see the patient, [id number] patient care, completing clinical documentation, obtaining and/or reviewing separately obtained history, performing a medically appropriate examination, counseling and educating the pat ient/family/caregiver, ordering medications, tests, or procedures, independently interpreting results (not separately reported), and communicating results to the patient/family/caregiver. documented in this encounterSelect Medical [facility] [place]12-22-2022 Miscellaneous Notes* Telephone Encounter - Denisha Duarte RN - 10/11/2022 10:00 AM EST ORAL ANTI-CANCER AGENTS FOLLOW-UP PHONE CALL/VISIT Patient identified by name and date of . YES Patient is on cycle 1, week 1, day 4 of Capecitabine (Xeloda) for Colon / Rectal Cancer. SYMPTOM ASSESSMENT Headache: No Visual Changes: No Dizziness: Yes. Pt describes as intermittent and slight. Do you have any periods of confusion? No Mood changes: No Mouth or throat pain: No Appetite: no changes in appetite, appetite good Taste changes: No Nausea: No - Takes Zofran prior to each dose of Xeloda. Vomiting: No Heartburn: No. Weight gain/loss: No Episodes of palpitations/chest discomfort/pressure/pain No Shortness of breath: No Cough: No Diarrhea: no Constipation: no Bladder/Urinary Changes: None Pain: Rectal pain. Rates pain 2-5/10. States he takes Vicodin for pain > 5/10. Has been taking 2Vicodin per day for the last 3 days. Fever: No Chills: No Cold sensitivity: No Numbness/weakness: Yes - Tingling in his right hand. Not new. No worse since starting treatment. Edema: No Skin changes: No Itching: No Yellowing of skin or eyes: No Musculoskeletal/joint changes/issues No Bleeding issues: Yes - Rectal bleeding has improved since starting treatment. Activity Level (0-100%): No change in level of activity. 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 Denies c/o fatigue. Do you need to take naps? Yes; Do you wake up feeling rested? Yes Pt verbalizes correct dosing and frequency of the Xeloda. Does the patient need interventions or same day appointment:No - Has f/u w/ Ryan today. ADDITIONAL FOLLOW UP: The next outreach call is due on: Advised pt call w/ any concerns or questions and was scheduled NA The following lab tests are due: CBC, CMP due today w/ RV. Verified patient is aware of next appointment in the cancer center: Yes. Verified patient verbalized how to correctly refill the oral agent prescription. Yes Does the patient have any financial difficulties affording this medication? No Patient verbalizes understanding of when to seek Medical Attention? YES Patient verbalizes understanding of after-hours and weekend phone number? YES Patient verbalized importance of medication compliance in taking the oral agent as prescribed. Patient instructed to call if unable to comply. 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 [employer]ER: Aparna Burgos APRN.[employer]ORER Performed by: MARIA G Indications and Patient Condition Indications for airway management: anesthesia Preoxygenated: yes anesthesia circuit Patient position: sniffing Method: asleep Difficult Mask: No Final Airway Details Final airway type: supraglottic airway Number of attempts at approach: 1 Final Supraglottic Airway: IGEL Size 5 Seal Adequate: yes Airway not difficult SIGNATURE: Aparna Burgos APRN.[employer]ORER PATIENT NAME: Mervat Damon DATE: October 10, 2022 TIME: 1:32 PM CSN: [id number] [facility] Patient Name: Mervat Damon Procedure Date: 10/10/2022 12:50 PM Date of : 1950 Admit Type: Outpatient Age: 72 Room: [facility] 2 Gender: Male Attending MD: Hang Maier MD Procedure: Bronchoscopy Indications: Adenopathy Providers: Hang Maier MD (Doctor), Bre Kwon RN (Nurse), Vinicius Severino RN (Nurse) Referring MD: Requesting Physician: Nick Anderson Medicines: See the Anesthesia note for documentation of the administered medications Complications: No immediate complications Procedure: Pre-Anesthesia Assessment: - A History and Physical has been performed. Patient meds and allergies have been reviewed. The risks and benefits of the procedure and the sedation options and risks were discussed with the patient. All questions were answered and informed consent was obtained. Patient identification and proposed procedure were verified prior to the procedure by the physician, the nurse and the anesthesiologist in the procedure room. Mental Status Examination: normal. Airway Examination: normal oropharyngeal airway. Respiratory Examination: clear to auscultation. CV Examination: regular rate and rhythm. ASA Grade Assessment: III - A patient with severe systemic disease. After reviewing the risks and benefits, the patient was deemed in satisfactory condition to undergo the procedure. The anesthesia plan was to use general anesthesia. Immediately prior to administration of medications, the patient was re-assessed for adequacy to receive sedatives. The heart rate, respiratory rate, oxygen saturations, blood pressure, adequacy of pulmonary ventilation, and response to care were monitored throughout the procedure. The physical status of the patient was re-assessed after the procedure. After obtaining informed consent, the Bronchoscope was introduced through the mouth, via laryngeal mask airway and advanced to the tracheobronchial tree. the Bronchoscope was introduced through the mouth, via laryngeal mask airway and advanced to the tracheobronchial tree. The procedure was accomplished without difficulty. The patient tolerated the procedure well. Findings: The laryngeal mask airway is in good position. The vocal cords appear normal. The subglottic space is normal. The trachea is of normal caliber. The anika is sharp. The tracheobronchial tree was examined to at least the first subsegmental level. Bronchial mucosa and anatomy are normal; there are no endobronchial lesions, and no secretions. Once the airway inspection was completed, the standard bronchoscope was withdrawn and the convex probe endobronchial ultrasound (EBUS) bronchoscope was inserted through the same route. Lymph Nodes: The following lymph nodes were evaluated and/or sampled. Lymph node sizing was performed via endobronchial ultrasound. Sampling by transbronchial needle aspiration was also performed using an Olympus ViziShot 22 gauge needle and sent for routine cytology. - The 7 (subcarinal) node was 7 mm by EBUS, [address] and mildly hypermetabolic via PET scan. Three samples with the needle were obtained. - The 4R (lower paratracheal) node was 7 mm by EBUS, [address] and mildly hypermetabolic via PET scan. Three samples with the needle were obtained. - The 11Rs (superior interlobar) node was 5 mm by EBUS, [address] and mildly hypermetabolic via PET scan. Three samples with the needle were obtained. Lymph Nodes: Rapid On-Site Evaluation (MARIANA): Preliminary cytology was suggestive of benign-appearing lymphoid tissue (final results are pending) in the right lower paratracheal region (level 4R), subcarinal mediastinum (level 7) and right superior interlobar region (level 11Rs). The cellularity of the specimen was adequate. Impression: - Lymph node sizing and sampling was performed. - Rapid On-Site Evaluation (MARIANA): Preliminary cytology was suggestive of benign-appearing lymphoid tissue in node level 4R, node level 7 and node level 11Rs and the cellularity of the specimen was adequate (final results are pending). Recommendation: - The patient will be observed post-procedure, until all discharge criteria are met. Attending Participation: I personally performed the entire procedure. Dr. Hang Maier MD 10/10/2022 2:17:02 PM This report has been signed electronically by Hang Maier MD Number of Addenda: 0 Note Initiated On: 10/10/2022 12:50 PM Procedure Start: 1:29:22 PM Procedure End: 1:58:11 [facility]12-20-2022 Miscellaneous Notes* Telephone Encounter - Vito Del Castillo - 10/09/2022 11:56 AM EST Spoke with the patient confirmed noon arrival time for 1 pm appointment at [facility] Vito Del Castillo documented in this encounter[facility] [place] History and physical note * Hang Maier MD - 10/08/2022 2:46 PM EST VIRTUAL VISIT PROGRESS NOTE This is a virtual visit using KIHEITAI video visit. It required patient-provider interaction for themedical decision making as documented below. Mervat Damon is a 72 year old male seen for evaluation of mediastinal adenopathy, referred byDr. Nick Anderson. My findings and recommendations will be communicated to the referring doctor via shared electronic medical record. The patient was diagnosed with rectal cancer about one month ago, as a result of rectal bleeding. Mass was non-obstructing T3bN0. However, baseline CT showed bilateral small lung nodules with liver nodules; PET showed uptake in a mediastinal node but no uptake in liver. Patient without pulmonary complaints, never smoker. Currently undergoing neoadjuvant chemo/XRT Xeloda and pelvic radiation, tolerating well. HISTORY REVIEWED (electronic chart updated): PAST MEDICAL HISTORY Diagnosis Date Acute low back pain with possible spinal stenosis of less than six weeks' duration Adenocarcinoma of rectum (HCC) Arthritis Bilateral renal cysts peripelvic BPH with urinary obstruction Cholelithiasis History of kidney stones Non-ischemic cardiomyopathy (HCC) Pulmonary emboli (HCC) left lower lobe RA (rheumatoid arthritis) (HCC) PAST SURGICAL HISTORY Procedure Laterality Date COLONOSCOPY HAMMERTOE REVISION, ONE TOE HEMORRHOID SURGERY HX HERNIA REPAIR HX LITHOTRIPSY PROC UNILATERAL REMV CATARACT EXTRACAP,INSERT LENS FAMILY HISTORY Problem Relation Age of Onset Pancreatic Cancer Mother Cancer Father bladder Liver Cancer Sister Cancer Brother Thyroid and Prostate Social History Tobacco Use Smoking status: Never Smokeless tobacco: Never Vaping Use Vaping Use: Never used Substance Use Topics Alcohol use: Yes Comment: rarely Drug use: No Current Outpatient Medications Medication Sig HYDROcodone-acetaminophen (NORCO) 5-325 mg per tablet Take 1 tablet by mouth every 8 hours as needed for pain. capecitabine (XELODA) 500 mg tablet Take 4 tablets (2,000 mg) by mouth twice daily with food on days of radiation only (Mon-Fri). ondansetron (ZOFRAN) 8 mg tablet Take 1 tablet by mouth every 8 hours as needed for nausea/vomiting. prochlorperazine (COMPAZINE) 10 mg tablet Take 1 tablet by mouth every 6 hours as needed. acetaminophen 325 mg cap Take by mouth. ibuprofen (MOTRIN) 400 mg tablet Take 400 mg by mouth every 6 hours as needed. predniSONE (DELTASONE) 5 mg tablet Take 5 mg by mouth once daily. valsartan (DIOVAN) 80 mg tablet Take 80 mg by mouth once daily. carvedilol (COREG) 6.25 mg tablet Take 6.25 mg by mouth once daily. folic acid 1 mg tablet Take 1 mg by mouth once daily. Glucosamine Sulfate 500 mg tab Take 1 tablet by mouth once daily. tamsulosin ER (FLOMAX) 0.4 mg cap Take 0.4 mg by mouth twice daily. Ascorbic Acid 100 mg tablet Take 100 mg by mouth twice daily. No current facility-administered medications for this visit. ALLERGIES No Known Allergies REVIEW OF SYSTEMS: GENERAL: feeling well without fatigue, no recent change in weight HEENT: denies ARAUJO, change in hearing or vision, no other ENT complaints NECK: denies swelling or pain in neck RESPIRATORY: no cough, no wheezing or shortness of breath CARDIOVASCULAR: no chest pain, no palpitations GI: See HPI : urination is normal MUSCULOSKELETAL: denies any painful or swollen joints, no muscle aches SKIN: no rash PSYCH: denies depressed or anxious mood, sleep is normal HEMATOLOGY/LYMPHOLOGY: negative for prolonged bleeding, no swollen lymph nodes ENDOCRINE: denies cold/heat intolerance, denies polyuria or polydipsia, no goiter NEURO: no numbness or paresthesias and no weakness of the extremities All other ROS: negative As noted in HPI PHYSICAL EXAMINATION: VIDEO EXAM: (if completed, performed via video enabled technology) GENERAL: alert and appropriate, in no distress, well-hydrated, well nourished, and happy, smiling, interactive SKIN: no rash noted HEAD: normocephalic, no abnormality or lesion noted EYES: no injection and visual acuity is grossly normal EARS: hearing grossly normal NOSE: external nose normal without rhinorrhea OROPHARYNX: moist mucus membranes NECK: full ROM, no cervical LNs noted RESPIRATORY: breathing non-labored CHEST: equal chest rise with normal respiratory effort ABDOMEN: soft and non-tender BACK: back normal in appearance, spine with FROM NEUROLOGIC: no obvious deficit ASSESSMENT/PLAN Adenopathy. I personally reviewed the CT and PET-CT images. There is PET update in the right hilar region, which is concerning for metastasis. This would be unusual to be the sole site of metastasis,however rectal cancer can bypass usual lymphatic drainage patterns. Will set up for an EBUS-TBNA, to acquire tissure. Colon cancer. Per oncology/rad onc. History PE. No longer on Eliquis. I spent a total of 40 minutes on the date of the service which included preparing to see the patient, [id number] patient care, completing clinical documentation, obtaining and/or reviewing separately obtained history, performing a medically appropriate examination, counseling and educating the pat ient/family/caregiver, ordering medications, tests, or procedures, communicating with other HCPs (not separately reported), independently interpreting results (not separately reported), communicatingresults to the patient/family/caregiver, and care coordination (not separately reported) Hang Maier MD October 08, 2022 3:54 PM documented in this encounterSelect Medical [facility], [place]12-19-2022 History of Present illness Narrative* Dania Vásquez MD - 10/08/2022 11:56 AM EST Radiation Oncology - On Treatment Review (OTR) Note PATIENT NAME: Mervat Damon PATIENT DIAGNOSIS: Adenocarcinoma of the lower rectum MRI staged [id number] COURSE: definitive and concurrent chemotherapy Current dose: 180 cGy in 1 fx Planned dose: 5040 cGy in 28 fx SUBJECTIVE: Here to start radiation, over the past several days increased rectal pressure and pain.Better standing. No bleeding. PHYSICAL EXAM: KPS: 90 General Appearance: Alert and oriented. No acute distress. IMAGING/LAB RESULTS: None TOXICITY ASSESSMENT (CTC v4.0): Fatigue:grade 1 - Fatigue relieved by rest Radiation Dermatitis: grade 0 - No symptoms Diarrhea:grade 0 - No symptoms Proctitis: grade 0 - No symptoms Urinary frequency: grade 0 - No symptoms Dysuria: grade 0 - No symptoms Urinary incontinence: grade 0 (No symptoms) Urinary retention: grade 0 - No symptoms Treatment chart checked: Yes Patient treatment site reviewed and verified:Yes Port films reviewed and current:Yes Medications started: None ASSESSMENT/PLAN: Patient starting radiation today. Hydrocodone prescription written for patient given his level of rectal pain. He also has further work-up with planned EBUS for suspicious mediastinal lymph node. Discussed with Dr. Anderson. We will plan to proceed with long course radiation given the level of patient's symptoms. Plan of care and expectations again reviewed. Plan, MU calculations and qa report reviewed. Initialimaging including cone beam ct and verification reviewed and approved. First treatment given. Continue radiation as prescribed. Dania Vásquez MD documented in this encounterSelect Medical [facility], [place]12-19-2022 Nurse Note* Orin Ríos - 10/08/2022 11:23 AM EST EKG performed as ordered. Electronically sent to [facility] main. Placed paper copy in scan folder. Orin Ríos MA documented in this encounterSelect Medical [facility], [place]12-16-2022 NoteHNO ID: [id number] Author: Collette Cespedes Service: ? Author Type: ? Type: Progress Notes Filed: 2022 10:54 AM Note Text: Patient called reviewed: Please schedule patient for the following: Pre-Procedure visit required: Yes-10/08 Physician Performing Bronchoscopy: Dr. Oconnor Needs Labs: No Needs EKG: Yes-10/08- [facility]Dan[id number] Miscellaneous Notes* Telephone Encounter - Nasrin Tamayo - 2022 11:13 AM EST Pt added for covid test and ekg Saturday (10/08) * Telephone Encounter - Denisha Duarte RN - 2022 9:54 AM EST Pt notified and verbalizes understanding. Informed pt that Dr Maier's office would be contacting him w/ appointments. Clerical: Pt will need pre-procedure covid testing and ekg when here on Saturday. Please add him to the appropriate schedules. Thanks! Denisha Duarte RN * Telephone Encounter - Denisha Duarte RN - 2022 9:49 AM EST ----- Message from Nick Anderson MD sent at 2022 9:39 AM EST ----- Regarding: RE: Possible New Pt Thanks Luis Alfredo. I will ask my nurse navigator Etelvina to notify the patient that the lymphadenopathy is somewhat concerning, and bronchoscopy/biopsy is recommended. In the meantime we plan to start chemoradiation for his primary tumor on Monday 10/08. He has persistent rectal pain and bleeding, and we do not want to hold off on treatment any longer. ThanksNick ----- Message ----- From: Hang Maier MD Sent: 2022 9:13 AM EST To: Nick Boykin R Anderson, MD, # Subject: RE: Possible New Pt Sure thing! We have an open slot next Saturday we'll try to get him in for that. He'll need an EKG and pre-bronch COVID which I assume he could get done at [facility] for convenience. I'll have to do a visit withhim on Saturday to establish care. Dr. Oconnor will be doing the bronch next week, but I'll see himin the office, either in in person or virtually. Thanks, Happy Holidays. Luis Alfredo Maier ----- Message ----- From: Denisha Duarte RN Sent: 09/28/2022 3:08 PM EST To: Hang Maier MD, Nick Anderson MD Subject: Possible New Pt Good Afternoon - This gentleman has newly diagnosed rectal cancer. He had some suspicious areas in his lung and liver however follow up PET per Dr Anderson was negative. The PET did show some questionable mediastinal lymphadenopathy. Dr asked if you could look at these and advise on whether or not an EBUS would be possible. Thank you! Denisha Duarte RN documented in this encounterSelect Medical [facility], [place]12-16-2022 NoteHNO ID: [id number] Author: Hang Maier MD Service: ? Author Type: Physician Type: Progress Notes Filed: 2022 9:11 AM Note Text: Bronchoscopy Request: Please schedule patient for the following: Pre-Procedure visit required: Yes New Consultation Physician Performing Bronchoscopy: Dr. Oconnor Needs Labs: No Needs EKG: Yes Does the pt need cardiac clearance? No Is he/she on anticoagulants/anti-plt therapy? No Diagnosis/Reason for Bronchoscopy: recent dx rectal cancer, PET showed uptake in mediastinal nodes. Please ebus to r/o mets Referred by: Justin Reviewed by: CHUCHO Maier MD 2022 9:09 [facility]12-16-2022 History of Present illness Narrative* Collette Cespedes - 2022 10:50 AM EST Patient called reviewed: Please schedule patient for the following: Pre-Procedure visit required: Yes-10/08 Physician Performing Bronchoscopy: Dr. Oconnor Needs Labs: No Needs EKG: Yes-10/08- scheduled * Hang Maier MD - 2022 9:09 AM EST Bronchoscopy Request: Please schedule patient for the following: Pre-Procedure visit required: Yes New Consultation Physician Performing Bronchoscopy: Dr. Oconnor Needs Labs: No Needs EKG: Yes Does the pt need cardiac clearance? No Is he/she on anticoagulants/anti-plt therapy? 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 States that he has not heard from pharmacy. 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 Pharmacy hours reviewed. Apologized for missed notification. Pt verbalizes understanding and will be in today. Denisha Duarte RN documented in this encounterSelect Medical [facility] [place]12-13-2022 Miscellaneous Notes* Telephone Encounter - Denisha Duarte RN - 10/02/2022 4:28 PM EST Patient started/will start taking Capecitabine on 10/08/22. Denisha Duarte RN documented in this encounterSelect Medical [facility], [place]12-13-2022 History of Present illness Narrative* Denisha Duarte RN - 10/02/2022 4:21 PM EST ORAL ANTI-CANCER AGENTS EDUCATION patient and spouse here today for oral medication education for Capecitabine (Xeloda) for Colon / Rectal Cancer READINESS TO LEARN Cognitive Ability: Alert and oriented Motivation to Learn: Interested Family Support: High - Very involved in pt care Instruction Provided to: Patient and Spouse Patient learns best by: Multiple Methods Factors affecting learning: None Physical limitation affecting learning: None TRIPP ASSESSMENT: 1.) Verified that patient knows that the oral agents are for cancer and are taken by mouth. Yes 2.) Medication reconciliation completed during visit. Yes 3.) Patient is able to swallow pills. Yes 4.) Patient is able to read the drug label/information. Yes 5.) Patient is able to open the medication bottles and packages. Yes 6.) Has patient taken other pills for cancer? No 7.) Is patient experiencing any symptoms that would affect their ability to keep down pills, for example nausea or vomiting? No 8.) Verified that patient understands prescription delivery, benefit investigation and refill process. Yes PATIENT EDUCATION: 1.) Verified that patient attended individualized instruction on chemotherapy taught by a nurse. Yes 2.) Verified that patient received Chemotherapy Safety in the Home handout, ChemoCare Medication Information handout: Capecitabine, Specialty Pharmacy Information : [facility], and Specialty Pharmacy phone numbers: Yes DRUG-SPECIFIC EDUCATION: 1.) Verified that patient knows the drug name. Yes 2.) Verified patient understands the dose and schedule of oral chemo agent:with water and within 30minutes of a meal. Yes 3.) Verified patient knows what to do if a medication dose is missed. Yes 4.) Verified patient understands where to store the drug. Yes 5.) Verified patient understands potential side effects and how to manage them. Yes Nausea , Vomiting, Constipation, Diarrhea, Fever / Chills / Risk for Neutropenic Fever, Headache, Neutropenia, Thrombocytopenia, Anemia, Mucositis, Fatigue, Hand-foot Syndrome, Peripheral Neuropathy, Myalgia, Arthalgia, and Electrolyte Disturbances 6.)Verified that patient understands handling precautions of oral chemo agent. Yes 7.) Verified that patient understands when and whom to call with questions. Yes 8.) Verified that patient understands where and how to return drug. Yes Pt is verbalizes that he is only to take the Xeloda on days of radiation. EVALUATE: Patient was able to demonstrate an understanding of all the above education using the teach-back method. Yes Patient instructed to call us with any questions, concerns, and/or unresolved symptoms. Will continue to follow up with patient and provide reinforcement of teaching topics as needed. Total time spent with patient: 30 minutes Total time spent on encounter: 5 minutes Denisha Duarte RN documented in this encounterSelect Medical [facility], [place]12-13-2022 History of Present illness Narrative* Nick Anderson MD - 10/02/2022 8:13 AM EST PATIENT NAME: Mervat Damon DATE: 09/17/2022 PRIMARY CARE PHYSICIAN: Lorenzo Olson DO OTHER PHYSICIANS: Dr. Mervat Slaughter, Dr. Thalia Troy, Dr. Kiko Treadwell, Dr. Vásquez CC: This is a 71 year old male with recently diagnosed rectal cancer, referred for further management. INTERIM HISTORY: Since the patient's initial visit here he has undergone extensive testing. PET scan revealed no significant uptake in the pulmonary nodules or liver. However, low-level FDG uptake was identified in the mediastinal lymph nodes. Of significance, the patient mentioned that he had an upper respiratory infection at the time of his PET scan. Liver MRI revealed no obvious lesions of significance. Clinically the patient feels about the same. He has ongoing rectal discomfort and occasional rectalbleeding, not severe. No other GI symptoms. MEDICATIONS: Current Outpatient Medications Medication Sig ondansetron (ZOFRAN) 8 mg tablet Take 1 tablet by mouth every 8 hours as needed for nausea/vomiting. prochlorperazine (COMPAZINE) 10 mg tablet Take 1 tablet by mouth every 6 hours as needed. azithromycin (ZITHROMAX Z-PA) 250 mg tablet Take two (2) tablets by mouth the first day and then one (1) tablet daily for 4 days. acetaminophen (TYLENOL) 325 mg cap Take by mouth. ibuprofen (MOTRIN) 400 mg tablet Take 400 mg by mouth every 6 hours as needed. predniSONE (DELTASONE) 5 mg tablet 5 mg. valsartan (DIOVAN) 80 mg tablet carvedilol (COREG) 6.25 mg tablet ELIQUIS 5 mg tab(s) take 2 tablets by mouth twice a day for 6 days then 1 tablet twice a day folic acid 1 mg tablet Take 1 mg by mouth once daily. Glucosamine Sulfate 500 mg tab Take 1 tablet by mouth. leflunomide (ARAVA) 10 mg tablet Take 10 mg by mouth once daily. tamsulosin ER (FLOMAX) 0.4 mg cap Take 0.4 mg by mouth. Ascorbic Acid 100 mg tablet Take 100 mg by mouth once daily. No current facility-administered medications for this visit. ALLERGIES: ALLERGIES No Known Allergies PAST MEDICAL HISTORY: PAST MEDICAL HISTORY Diagnosis Date Acute low back pain with possible spinal stenosis of less than six weeks' duration Adenocarcinoma of rectum (HCC) Arthritis Bilateral renal cysts peripelvic BPH with urinary obstruction Cholelithiasis History of kidney stones Non-ischemic cardiomyopathy (HCC) Pulmonary emboli (HCC) left lower lobe RA (rheumatoid arthritis) (HCC) PAST SURGICAL HISTORY: PAST SURGICAL HISTORY Procedure Laterality Date COLONOSCOPY HAMMERTOE REVISION, ONE TOE HEMORRHOID SURGERY HX HERNIA REPAIR HX LITHOTRIPSY PROC UNILATERAL REMV CATARACT EXTRACAP,INSERT LENS FAMILY HISTORY: FAMILY HISTORY Problem Relation Age of Onset Pancreatic Cancer Mother Cancer Father bladder Liver Cancer Sister Cancer Brother Thyroid and Prostate SOCIAL HISTORY: Social History Tobacco Use Smoking status: Never Smokeless tobacco: Never Vaping Use Vaping Use: Never used Substance Use Topics Alcohol use: Yes Comment: rarely Drug use: No COMPLETE REVIEW OF SYSTEMS: CONSTITUTION: Negative for pain, fatigue, weight loss, or appetite loss. EENT: Negative for mouth soreness, antibiotics use, epistaxis, visual problems, neck or facial swelling, fever/chills, bleeding gums, or hearing loss. CV: Negative for edema, calf swelling, palpitations, or chest pain. RESPIRATORY: Negative for cough, SOB, hemoptysis, or wheezing. GI: Negative for nausea/vomiting, heartburn, vomiting blood, dysphasia, diarrhea, blood in stool, constipation, early satiety, PICA, vegetarian, poor nutrition, abdominal fullness, or abdominal pain. NEUROLOGICAL: Negative for numbness/tingling, dizziness, gait disturbance, headache, speech disturbance, tremor, hemiparesis/sensory loss, or change in mental status. MUSCULOSKELETAL: Negative for joint pain, joint swelling, or proximal muscle weakness. SKIN: Negative for hair loss, bruising, nail changes, rash, itching, pallor, or jaundice. ENDO/URO: Negative for hot flashes, cold or heat intolerance, urinary frequency, urinary hesitancy,menorrhagia, or hematuria. PSYCH: Negative for anxiety, depression, or other. PHYSICAL EXAM: BP 113/78 Pulse 83 Temp 36.6 C (97.8 F) (Temporal) Resp 18 Ht 186.2 cm (6' 1.31 ) Wt 113.9 kg (251 lb 3.2 oz) SpO2 97% BMI 32.86 kg/m GENERAL EXAM: Well developed/well nourished; in no acute distress. SKIN: Negative for lesions, rashes, or ulcers on the upper and lower extremities and face. Negativefor palpations/nodules, purpura, and ecchymosis. EENT: Negative for conjunctiva, mucosal pallor, JVD, LAP, thyromegaly, and glossitis. Supple & PERRL. EXTREMITIES: Negative for cyanosis, clubbing, and crepitus. LUNGS: Negative to auscultation, respiratory effort, and percussion. CARDIOVASCULAR: Regular rate. Negative for murmurs/S3S4/abnormal sounds, edema, and carotid bruits. ABDOMEN: Negative for masses, hernia, and spleen/liver abnormalities. RECTAL: Not done PSYCHIATRIC: Negative for mood/affect changes, recent & remote memory changes, and judgement and insight. NEUROLOGICAL: Alert, oriented x person, place, time. Cranial nerves 2-12 intact. Sensory for pain, light touch, vibration intact on all 4 extremities. Reflexes symmetric for biceps/brachioradial/patella/achilles. MUSCULOSKELETAL: Negative examination of joints, bones, muscles/tendons of all four extremities forinspection, percussion, and palpation. Negative for misallignment, asymmetry, crepitation, tenderness, mass, effusions. Range of motion normal. Negative for joint instability, laxity, dislocation. Gait steady. Negative for swelling, erythema, tenderness, soft tissue swelling, and atrophy. PATHOLOGY: 08/20/2022 Colonoscopic biopsy ([facility]) Adenocarcinoma of colon (mass at anal verge) Mismatch repair gene -normal expression RADIOLOGY/OTHER STUDIES: 10/01/2022 MRI abdomen ([facility]) No MRI evidence of liver lesion 09/25/2022 PET scan IMPRESSION: Head and Neck: * No hypermetabolic foci Chest: * Hypermetabolic mediastinal lymphadenopathy represent inflammatory/infectious etiology versus neoplastic. * Redemonstration of a few pulmonary nodules measuring up to 7 mm which are not well assessed on PET/CT given size, recommend follow-up with chest CT as clinically warranted. Abdomen and pelvis: * Hypermetabolic focus within the distal rectum at the site of previously visualized rectal cancer, better assessed on prior MRI. Musculoskeletal: * No neoplastic hypermetabolic lesions 09/11/2022 MRI pelvis ([facility]) Low rectal neoplasm with suspected early invasion of the internal anal sphincter at the upper canal(MRI category T3b, N0). Few nonenlarged 2 to 3 mm mesorectal lymph nodes. No suspicious lymphadenopathy. 09/11/2022 CT chest, abdomen, pelvis ([facility]) Possible low-attenuation lesion right hepatic lobe under centimeter in size. MRI could better characterize this should be performed with IV contrast. Nodular density within the left adrenal gland which could represent metastasis or adenoma. Multiple noncalcified pulmonary nodules worrisome for metastatic disease. Largest measures approxi-1 cm in the right upper lobe. LABORATORY DATA: Hemoglobin (g/dL) Date Value 09/17/2022 14.4 08/04/2018 14.3 Hematocrit (%) Date Value 09/17/2022 43.9 08/04/2018 43.1 WBC (k/uL) Date Value 09/17/2022 9.52 08/04/2018 6.24 Platelet Count (k/uL) Date Value 09/17/2022 232 08/04/2018 216 CEA 09/05/2022 14.4 09/17/2022 15.7 ASSESSMENT/PLAN: 1. 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 Pelvic MRI confirmed T3bN0 disease. However, baseline CT scans were abnormal indicating bilateral pulmonary nodules and a suspicious liver lesion. PET scan 09/25/2022 revealed low-level FDG uptake in the mediastinal nodes of unclear significance, but no uptake in the pulmonary nodules. Liver MRI was negative. Most likely the patient has localized disease. We will proceed with neoadjuvant long course chemoradiation, to include capecitabine 825 mg/m2 twice daily concurrent with pelvic radiation. Treatment will start on Saturday10/08/2022. I will see the patient back in 10 days for follow-up. After completing chemoradiation we will restage, and based on tolerance and response would considercontinued neoadjuvant treatment with FOLFOX chemotherapy. The patient would then be evaluated for surgical resection. We will confer with [facility] pulmonary whether further evaluation of his abnormal mediastinal lymph nodes (identified on PET scan) is warranted. If not we will repeat chest CT at 3 months. 2. Rheumatoid arthritis Diagnosed 2005. Previous treatment has included steroids, Enbrel, and methotrexate. Currently stable on low-dose steroids (prednisone 5 mg daily). Continue management per rheumatology (Dr. Treadwell) 3. Cardiomyopathy History of nonischemic cardiomyopathy. Currently minimally symptomatic. Continue management per PCP/cardiology. 4. History of cervical spinal stenosis Status post cervical spine fusion. Currently asymptomatic. 5. Benign prostatic hypertrophy History of LUTS consistent with BPH. Minimally symptomatic at this time. Continue management per PCP/urology. 6. History of pulmonary embolism Diagnosed June 2018 after a prolonged car ride. Status post anticoagulation with Eliquis x 2 years. No evidence of ongoing thromboembolic disease. Nick Anderson MD CC: Dr. Thalia Troy ([facility] Colorectal Surgery) documented in this encounterSelect Medical [facility] [place] Miscellaneous Notes* Telephone Encounter - Denisha Duarte RN - 10/01/2022 5:19 PM EST Pt will be starting chemo/xrt on 10/08. Scripts for antiemetics pended. Denisha Duarte RN documented in this encounterSelect Medical [facility], [place]12-09-2022 Miscellaneous Notes* Telephone Encounter - Re Alvarez LPN - 09/28/2022 12:07 PM EST Michael called stating he has completed the Z-pa Dr. Vásquez prescribed on 09/24/22 for complaints of a cough. Michael said he continues with a cough and is now productive with green mucus. He denies fevers. He said for the last couple years around this time, Dr. Olson treated him for bronchitis and pneumonia and he's wondering if this it what he has currently. I notified him that Dr. Vásquez is out ofthe office today and recommended he call Dr. Olson for his recommendation. Michael is in agreement with calling Dr. Olson. Re Alvarez LPN documented in this encounterSelect Medical [facility], [place]12-07-2022 Miscellaneous Notes* Telephone Encounter - DAI Carrington - 09/26/2022 1:56 PM EST SOCIAL WORK FOLLOW UP NOTE: [facility] Date of service:09/26/22 Mervat Damon is being seen for a follow up social work visit. Today's visit includes: patient TOPICS ADDRESSED: coping/support PLAN: Continue follow up as needed Assigned SW listed in Care Team tab: Yes SW called the above listed Patient as an introduction to Oncology SW services. Patient shares that he will be in on 10/02/22 and then will be starting radiation treatments on 10/08/22. Patient is open to meeting with this SW to learn what this SW has to offer. Patient mentioned that his Mini is retired RN and she may have some questions for this SW. SW will plan to meet with the Patient andwife on 10/08/22. SW will remain available and will follow up as appropriate. DARYA Carrington documented in this encounterSelect Medical [facility], [place]12-07-2022 Miscellaneous Notes* Telephone Encounter - Re Alvarez LPN - 09/26/2022 9:11 AM EST I notified Michael of his rescheduled new start for 10/08/22 at 12:45. He states he has a MRI 10/01/22 and I reminded him of his follow up with Dr. Anderson 10/02/22. He denies questions at this time. Re Alvarez LPN documented in this encounterSelect Medical [facility], [place]12-06-2022 Miscellaneous Notes* Telephone Encounter - Denisha Duarte RN - 09/25/2022 1:57 PM EST Update: Pt's XRT to start on 10/08. MRI scheduled @ [facility] on 10/01. Pt to see Dr Anderson on 10/02 to review results of PET and MRI. Will write for Xeloda @ that time. Per Kilo, since pt has [employer] insurance, this will leave ample time to fill script before start of XRT. Pt notified of change and verbalizes understanding. Denisha Duarte RN * Telephone Encounter - Denisha Duarte RN - 09/25/2022 11:00 AM EST Pt of Dr Anderson. Newly diagnosed rectal cancer. Per 's note on 09/17, the plan is neoadjuvant Xeloda/XRT followed by FOLFOX. Will be starting XRT on Saturday, 10/01. Xeloda script still needed. Mata: Could you send a script to our pharmacy since Dr Anderson is out of the office the rest of the week? Denisha Duarte RN documented in this encounterSelect Medical [facility], [place]12-06-2022 History of Present illness Narrative* Hoa Owen, JONAS - 09/25/2022 1:51 PM EST Oncology Nutrition Therapy Initial Assessment RECOMMENDED MALNUTRITION DIAGNOSIS: NO MALNUTRITION IDENTIFIED Nutrition Diagnosis: Increased protein and energy needs related to hypermetabolic disease process as evidenced by need for weight maintenance and preservation of muscle mass. Nutrition Intervention: -encouraged weight maintenance during treatment -continue current meal pattern of 3 meals/day + snack(s) prn -include lean protein source at each meal/snack -discussed potential nutrition related side effects -encouraged good hydration -increase water consumption to 3-4 16.9 oz bottles/day -provided contact information for any further questions/concerns Nutrition Monitoring & Evaluation: -PO Intake -Wt status -BM's -Biochemical Markers -Plan of care Patient's symptoms are: None Pt presents for nutrition counseling for rectal adenocarcinoma. Pt is currently not on treatment, but will tentatively beginning chemoradiation on 10/08/2022 per patient. Pt denies any chewing/swallowing issues, denies current N/V/D/C. Pt denies food allergies/intolerances. Appetite appears to be good, Intakes are good. Pt reports typically consuming 3 meals per day plus snacks. Diet recall obtained and reveals: Breakfsat: oatmeal w/ fruit for bkfst every morning, coffee Lunch- turkey sandwich w/ cheese, monroy; chips, cookies Dinner- protein/starch/veg/fruit for dinner Snacks- ice cream, cookies, etc Patient does admit he could drink more water. He currently reports consuming 2- 16.9 oz bottles perday. Other fluids throughout the day include coffee, herbal tea, diet dr pepper, and diet sprite. Discussed with pt importance of adequate calorie/protein intakes and preserving lean muscle mass. Reviewed interventions above and problem solved ways to meet recommendations. Pt verbalized understanding. Thank you for allowing me to participate in the care of this pt. Readiness to Learn: Cognitive ability: Alert and oriented Motivation to learn: Interested Family support: High - Very involved in pt care Instruction provided to: Patient and family member Patient learns best by: Multiple Methods Factors affecting learning: None Physical limitations affecting learning: None Educational materials provided: Creative Eating during Illness and Recovery Anthropometrics: Height: Last 1 Encounter Ht Readings: Date: Ht: 09/17/2022 186.2 cm (6' 1.31 ) Current weight: Last 1 Encounter Wt Readings: Date: Wt: 09/20/2022 113.3 kg (249 lb 12.8 oz) Estimated body mass index is 32.68 kg/m as calculated from the following: Height as of 09/17/22: 186.2 cm (6' 1.31 ). Weight as of 09/20/22: 113.3 kg (249 lb 12.8 oz). Resting Metabolic Rate: 1961 Weight Change: no changes reported, weight stable per patient [place] Body Weight: 79.9kg Estimated kilocalorie needs: 4425-6413 kilocalories determined by 25-30 kcal/kg Estimated protein needs: 80-96 grams determined by 1.0-1.2 g/kg [place] weight Estimated fluid needs: ~5445-1880 milliliters based on 1 mL per kcal (unless otherwise noted) Nutrition Focused Physical Exam: Unable to perform exam due to potential for patient discomfort (physical/emotional), will re-attempt during reassessment. Potential Signs of Inflammation: chronic condition Visually no observable signs of muscle or fat depletion. Pt reports being able to complete ADLs perusual and reports no changes in strength/energy. Allergies: Patient has no known allergies. Medications: Current Outpatient Medications Medication Sig Dispense Refill azithromycin (ZITHROMAX Z-PA) 250 mg tablet Take two (2) tablets by mouth the first day and then one (1) tablet daily for 4 days. 6 tablet 0 acetaminophen (TYLENOL) 325 mg cap Take by mouth. ibuprofen (MOTRIN) 400 mg tablet Take 400 mg by mouth every 6 hours as needed. predniSONE (DELTASONE) 5 mg tablet 5 mg. valsartan (DIOVAN) 80 mg tablet carvedilol (COREG) 6.25 mg tablet ELIQUIS 5 mg tab(s) take 2 tablets by mouth twice a day for 6 days then 1 tablet twice a day 0 folic acid 1 mg tablet Take 1 mg by mouth once daily. Glucosamine Sulfate 500 mg tab Take 1 tablet by mouth. leflunomide (ARAVA) 10 mg tablet Take 10 mg by mouth once daily. tamsulosin ER (FLOMAX) 0.4 mg cap Take 0.4 mg by mouth. Ascorbic Acid 100 mg tablet Take 100 mg by mouth once daily. No current facility-administered medications for this visit. Need for Follow up: will continue to follow Referred/Supervised by: Yesi/Yesi BATISTA Billing Type: Initial Assess/15 min 2 units Time Spent with Patient: 30 minutes Signed by: Hoa Owen MS, RDN, LD documented in this encounterSelect Medical [facility], [place]12-05-2022 Miscellaneous Notes* Telephone Encounter - Lucina Becerra Sec - 09/24/2022 1:02 PM EST Michael is scheduled with Dr Anderson on 10-02-22 per Kadie Ríos. Pt notified * Telephone Encounter - Lucina Becerra Sec - 09/21/2022 9:12 AM EST Info out to Kadie Ríos for an appt. * Telephone Encounter - Nick Anderson MD - 09/20/2022 5:05 PM EST Yes, predominantly I would like to see him back after the PET. Thanks, BRM * Telephone Encounter - Lucina Becerra Sec - 09/20/2022 12:58 PM EST Sim is scheduled for 09-24-22 Pet scan is scheduled for 09-25-22 MRI at [facility] not until 10-11-22. Just want to confirm that you want to see the patient back the week of 10-01. Thank you for your help. documented in this encounterSelect Medical [facility], [place]12-05-2022 History of Present illness Narrative* G Saeed Vásquez MD - 09/24/2022 12:00 AM EST MERVAT DAMON [id number] 09/24/2022 [facility] Department of Radiation Oncology Treatment Planning Note For reasons stated in the consult note, Mervat Damon is a candidate for radiation therapy. Based on review and interpretation of the relevant diagnostic studies together with the exam findings, Mervat Damon was simulated on 09/24/2022 at which time the target volume and/or requisite gordon were delineated, as indicated in the simulation note, to be treated according to the prescription. The treatment target and organs at risk were contoured on the simulation scan using the fused MRI /. Special consideration to these and other structures was given in light of the potential for increased toxicities of combined chemoradiation. After reviewing multiple treatment plans with dosimetry, the best plan was approved to deliver the prescribed course of radiation to the target area using inverse planning to allow for the best isodose distribution, treating to the 97.4% isodose line with 10MV and 3 gordon. Custom MLC asym jaws forIMRT were the treatment devices used to shape/modify the beams. Limiting dose to normal tissue was confirmed upon review of the calculated dose volume histogram. IMRT planning was used because it best met the dose/volume constraints for the organs at risk for this patient, better than what could be achieved using conventional or 3D planning. The specific doserequirements for the PTV, organs at risk and dose-volume histograms are contained in this treatmentplan and/or elsewhere in the medical record. A completed summary of this plan dated 10/05/22 incorporated herein by reference includes dose, beam arrangements, energy, blocking, isodose distribution, and/or ports and DVH. Electronically Signed Saeed Vásquez M.D. 0:18 AM documented in this encounterSelect Medical [facility], [place]12-01-2022 Nurse Note* Sonam Horowitz RN - 09/20/2022 8:53 AM EST Radiation Therapy - Patient Education Note PATIENT NAME: Mervat Damon PATIENT September 20, 2022 [facility] FACILITY/LOCATION: [facility] READINESS TO LEARN Cognitive Ability: Alert and oriented Motivation to learn: Eager Family Support: High - Very involved in pt care Instruction provide to: Patient and family member Patient learns best by: Written Instruction - Hand-outs Factors effecting learning: None Physical limitations effecting learning: None LEARNING RESPONSE Diagnosis: Pt simulated today for radiation therapy to pelvis. Education Topic/Teaching Points: Radiation therapy, Side effects, and OTV: Method of instruction: Written instruction - handouts Patient /Family response: Patient and family verbalized understanding of radiation treatments, sideeffects, OTV, and transportation. Follow-up plan: Recommend - Recommend continued instruction and follow up as directed Supplemental material: Informational handouts on Diarrhea and Pelvic handout. Binder Given. Referral (recommendation): Dietitian - Concurrent Patient Was KP approved? No Signed by: Sonam Horowitz, RN documented in this encounterSelect Medical [facility], [place]12-01-2022 History of Present illness Narrative* Dania Vásquez MD - 09/20/2022 7:46 AM EST Radiation Oncology - New Patient/Consult Note PATIENT NAME: Mervat Damon PATIENT REQUESTING PROVIDER: .Dr. Anderson DIAGNOSIS: Rectal cancer ,adenocarcinoma of the lower rectum MRI staged [id number] HPI: 71 year old male who presents with above diagnosis, for an opinion regarding the role of radiation therapy in the management of the patient's disease. Final recommendations will be communicated back to the requesting physician by way of the shared medical record, or letter to requesting physician via US mail. Patient presented with several month history of increasing rectal pain and development of rectal bleeding. He went in for evaluation including sigmoidoscopy on 08/20/2022 which demonstrated an ulcerated/firm mass described in the lateral aspect of the rectal area at the anal verge. 25 to 30% circumferential involvement. Patient was seen by [facility] colorectal surgery, Dr. Troy. He underwent CT chest, abdomen and pelvis 09/11/2022: Multiple noncalcified pulmonary nodues worrisome for metastatic disease including 1 cm RUL nodule. Also low-attenuation lesion right hepatic lobeunder centimeter. Nodular density left adrenal gland, metastasis versus adenoma, cholelithiasis without gallbladder dilatation no adenopathy reported. He also underwent pelvic MRI 09/14/2022 that demonstrated: T3 N0 low rectal tumor, early invasion of the internal anal sphincter of the upper canal, somewhat limited due to lack of contrast Distance to anal verge: 3.5 cm Distance to top of sphincter complex anorectal junction: [ Below the peritoneal reflection Craniocaudal length: 2.3 cm ALLERGIES No Known Allergies PAST MEDICAL HISTORY Diagnosis Date Acute low back pain with possible spinal stenosis of less than six weeks' duration Adenocarcinoma of rectum (HCC) Arthritis Bilateral renal cysts peripelvic BPH with urinary obstruction Cholelithiasis History of kidney stones Non-ischemic cardiomyopathy (HCC) Pulmonary emboli (HCC) left lower lobe RA (rheumatoid arthritis) (HCC) Prior radiation therapy, collagen vascular disease, or inflammatory bowel disease: No PAST SURGICAL HISTORY Procedure Laterality Date COLONOSCOPY HAMMERTOE REVISION, ONE TOE HEMORRHOID SURGERY HX HERNIA REPAIR HX LITHOTRIPSY PROC UNILATERAL REMV CATARACT EXTRACAP,INSERT LENS FAMILY HISTORY Problem Relation Age of Onset Pancreatic Cancer Mother Cancer Father bladder Liver Cancer Sister Prostate Cancer Brother Social History Tobacco Use Smoking status: Never Smokeless tobacco: Never Vaping Use Vaping Use: Never used Substance Use Topics Alcohol use: Yes Comment: rarely Drug use: No COMPLETE REVIEW OF SYSTEMS: GENERAL: feeling well without fatigue, no recent change in weight NECK: denies swelling or pain in neck RESPIRATORY: no cough, no wheezing or shortness of breath CARDIOVASCULAR: no chest pain, no palpitations GI: see hpi : urination is normal SKIN: no rash NEURO: no numbness or paresthesias and no weakness of the extremities As noted in HPI PHYSICAL EXAM: VS: There were no vitals taken for this visit. KPS: 100 General Appearance: Alert and oriented. No acute distress. HEENT: NCAT. Sclera anicteric. PERRL. EOMI. Neck: Normal ROM. No palpable cervical or supraclavicular adenopathy. Chest: No respiratory distress. Lungs clear to auscultation bilaterally. Heart: Regular rate and rhythm. Abdomen: Soft. Nontender. Nondistended. Rectal: firm nearly circumferential mass distal rectal vault Musculoskeletal: No edema. Normal ROM in extremities. No bone or spine tenderness. Neuro: Speech fluent. Gait normal. No focal deficits. Skin: No rashes noted Lymphatics: No palpable lymphadenopathy. Hematologic: No signs of active bleeding. RADIOLOGY/LABORATORY DATA: see HPI ASSESSMENT AND PLAN: Rectal cancer ,adenocarcinoma of the lower rectum MRI staged [id number] Patient is still undergoing staging. He has locally advanced low rectal cancer. Would recomment radiation concurrent with chemotherapy given location and his significant symptoms. Risks benefits and rational of treatment discussed with patient and his . He expressed understanding of the information presented. He will return for simulation and further discussion after staging. Will coordinate concurrent treatment with Dr. Anderson Signed by: Dania Vásquez MD cc: Lorenzo Olson [address] [facility] [address] [place] [address] Nick Anderson ([place]) [address] [place] [address] [place] [id number] documented in this encounterSelect Medical [facility], [place]11-29-2022 Miscellaneous Notes* Telephone Encounter - Lucy Hampton Sec - 09/18/2022 12:[address] Cortes from [facility] called regarding patient please call at your convience thanks [phone] documented in this encounterSelect Medical [facility], [place]11-28-2022 History of Present illness Narrative* Nick Anderson MD - 09/17/2022 6:57 AM EST PATIENT NAME: Mervat Damon DATE: 09/17/2022 PRIMARY CARE PHYSICIAN: Lorenzo Olson, OTHER PHYSICIANS: Dr. Mervat Slaughter, Dr. Thalia Troy, Dr. Kiko Treadwell HPI: This is a 71 year old male with recently diagnosed rectal cancer, referred for further management. The patient presented with a 4-month history of rectal pain and bleeding in July 2022. Flexible sigmoidoscopy 08/20/2022 revealed an ulcerated firm mass in the lateral rectal vault at the anal verge, encompassing approximately 25 to 30% of the circumference of the anus. Biopsy confirmed adenocarcinoma. The patient was referred to [facility] colorectal surgery (Dr. Troy) for further management. Pelvic MRI revealed a low rectal neoplasm with suspected early invasion of the internal anal sphincterat the upper canal, consistent with a T3b lesion. CT scans revealed suspicious pulmonary nodules aswell as an abnormal liver lesion and left adrenal gland abnormality. Clinically the patient feels fairly well. He has rectal discomfort when sitting for prolonged periods and mild rectal urgency. He has had no recent evidence of rectal bleeding. No nausea/vomiting or other GI symptoms. He does notice slight shortness of breath with exertion, but no cough. No significant weight loss or other systemic symptoms. The patient does not smoke or drink. His family history is significant for his mother diagnosed with pancreatic cancer, and sister with liver cancer. No other family members have had colorectal cancer. 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 MEDICATIONS: Current Outpatient Medications Medication Sig ELIQUIS 5 mg tab(s) take 2 tablets by mouth twice a day for 6 days then 1 tablet twice a day methotrexate 2.5 mg tablet Take 2.5 mg by mouth every Saturday. sildenafil (REVATIO) 20 mg tablet Take 20 mg by mouth as needed. folic acid 1 mg tablet Take 1 mg by mouth once daily. Glucosamine Sulfate (GLUCOSAMINE) 500 mg tab Take 1 tablet by mouth. leflunomide (ARAVA) 10 mg tablet Take 10 mg by mouth once daily. potassium citrate ER (UROCIT-K) 10 mEq (1,080 mg) TbER Take by mouth. tamsulosin ER (FLOMAX) 0.4 mg cap Take 0.4 mg by mouth. Ascorbic Acid (VITAMIN C) 100 mg tablet Take 100 mg by mouth once daily. No current facility-administered medications for this visit. ALLERGIES: ALLERGIES No Known Allergies PAST MEDICAL HISTORY: PAST MEDICAL HISTORY Diagnosis Date Acute low back pain with possible spinal stenosis of less than six weeks' duration Arthritis Bilateral renal cysts peripelvic Cholelithiasis History of kidney stones Pulmonary emboli (HCC) left lower lobe RA (rheumatoid arthritis) (HCC) PAST SURGICAL HISTORY: PAST SURGICAL HISTORY Procedure Laterality Date COLONOSCOPY HAMMERTOE REVISION, ONE TOE HERNIA REPAIR HX LITHOTRIPSY PROC UNILATERAL FAMILY HISTORY: No family history on file. SOCIAL HISTORY: Social History Tobacco Use Smoking status: Never Smokeless tobacco: Never Substance Use Topics Alcohol use: Yes Comment: rarely Drug use: No COMPLETE REVIEW OF SYSTEMS: CONSTITUTION: Negative for pain, fatigue, weight loss, or appetite loss. EENT: Negative for mouth soreness, antibiotics use, epistaxis, visual problems, neck or facial swelling, fever/chills, bleeding gums, or hearing loss. CV: Negative for edema, calf swelling, palpitations, or chest pain. RESPIRATORY: Negative for cough, SOB, hemoptysis, or wheezing. GI: Negative for nausea/vomiting, heartburn, vomiting blood, dysphasia, diarrhea, blood in stool, constipation, early satiety, PICA, vegetarian, poor nutrition, abdominal fullness, or abdominal pain. NEUROLOGICAL: Negative for numbness/tingling, dizziness, gait disturbance, headache, speech disturbance, tremor, hemiparesis/sensory loss, or change in mental status. MUSCULOSKELETAL: Negative for joint pain, joint swelling, or proximal muscle weakness. SKIN: Negative for hair loss, bruising, nail changes, rash, itching, pallor, or jaundice. ENDO/URO: Negative for hot flashes, cold or heat intolerance, urinary frequency, urinary hesitancy,menorrhagia, or hematuria. PSYCH: Negative for anxiety, depression, or other. PHYSICAL EXAM: BP 135/72 Pulse 68 Temp 36.4 C (97.5 F) (Temporal) Resp 16 Ht 186.2 cm (6' 1.31 ) Wt 111.2 kg (245 lb 3.2 oz) SpO2 97% BMI 32.08 kg/m GENERAL EXAM: Well developed/well nourished; in no acute distress. SKIN: Negative for lesions, rashes, or ulcers on the upper and lower extremities and face. Negativefor palpations/nodules, purpura, and ecchymosis. EENT: Negative for conjunctiva, mucosal pallor, JVD, LAP, thyromegaly, and glossitis. Supple & PERRL. EXTREMITIES: Negative for cyanosis, clubbing, and crepitus. LUNGS: Negative to auscultation, respiratory effort, and percussion. CARDIOVASCULAR: Regular rate. Negative for murmurs/S3S4/abnormal sounds, edema, and carotid bruits. ABDOMEN: Negative for masses, hernia, and spleen/liver abnormalities. RECTAL: Not done PSYCHIATRIC: Negative for mood/affect changes, recent & remote memory changes, and judgement and insight. NEUROLOGICAL: Alert, oriented x person, place, time. Cranial nerves 2-12 intact. Sensory for pain, light touch, vibration intact on all 4 extremities. Reflexes symmetric for biceps/brachioradial/patella/achilles. MUSCULOSKELETAL: Negative examination of joints, bones, muscles/tendons of all four extremities forinspection, percussion, and palpation. Negative for misallignment, asymmetry, crepitation, tenderness, mass, effusions. Range of motion normal. Negative for joint instability, laxity, dislocation. Gait steady. Negative for swelling, erythema, tenderness, soft tissue swelling, and atrophy. PATHOLOGY: 08/20/2022 Colonoscopic biopsy ([facility]) Adenocarcinoma of colon (mass at anal verge) Mismatch repair gene -normal expression RADIOLOGY/OTHER STUDIES: 09/11/2022 MRI pelvis ([facility]) Low rectal neoplasm with suspected early invasion of the internal anal sphincter at the upper canal(MRI category T3b, N0). Few nonenlarged 2 to 3 mm mesorectal lymph nodes. No suspicious lymphadenopathy. 09/11/2022 CT chest, abdomen, pelvis ([facility]) Possible low-attenuation lesion right hepatic lobe under centimeter in size. MRI could better characterize this should be performed with IV contrast. Nodular density within the left adrenal gland which could represent metastasis or adenoma. Multiple noncalcified pulmonary nodules worrisome for metastatic disease. Largest measures approxi-1 cm in the right upper lobe. LABORATORY DATA: Hemoglobin (g/dL) Date Value 09/17/2022 14.4 08/04/2018 14.3 Hematocrit (%) Date Value 09/17/2022 43.9 08/04/2018 43.1 WBC (k/uL) Date Value 09/17/2022 9.52 08/04/2018 6.24 Platelet Count (k/uL) Date Value 09/17/2022 232 08/04/2018 216 ASSESSMENT/PLAN: 1. 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 Pelvic MRI confirmed T3bN0 disease. However, CT scans were abnormal indicating bilateral pulmonary nodules and a suspicious liver lesion. To rule out metastatic disease we will further stage with a PET scan and MRI of the abdomen. Based on scan results biopsy of a suspicious lesionmay be indicated. If the patient is proven to have no metastases we would recommend neoadjuvant long course chemoradiation, to include capecitabine concurrent with pelvic radiation therapy. We would then restage, and based on tolerance and response would consider continued neoadjuvant treatment with FOLFOX chemotherapy. The patient would then be evaluated for surgical resection. If the patient is proven to have stage IV disease with either lung or liver metastases therapy would be of palliative intent, but given his significant rectal symptoms palliative chemoradiation followed by systemic therapy would be a reasonable option. We will arrange for his PET scan and abdominal MRI to be done JERI. We will refer to radiation oncology to evaluate for radiation therapy. I will see him back in 2 weeks for follow-up and coordination of care. 2. Rheumatoid arthritis Diagnosed 2005. Previous treatment has included steroids, Enbrel, and methotrexate. Currently stable on low-dose steroids (prednisone 5 mg daily). Continue management per rheumatology (Dr. Treadwell) 3. Cardiomyopathy History of nonischemic cardiomyopathy. Currently minimally symptomatic. Continue management per PCP/cardiology. 4. History of cervical spinal stenosis Status post cervical spine fusion. Currently asymptomatic. 5. Benign prostatic hypertrophy History of LUTS consistent with BPH. Minimally symptomatic at this time. Continue management per PCP/urology. 6. History of pulmonary embolism Diagnosed June 2018 after a prolonged car ride. Status post anticoagulation with Eliquis x 2 years. No evidence of ongoing thromboembolic disease. Nick Anderson MD CC: Dr. Mervat Slaughter ([facility] Surgery); Dr. Thalia Troy ([facility] Colorectal Surgery) documented in [facility] encounter[facility] [place] Miscellaneous Notes* Telephone Encounter - Toshia Dailey Regsebastien - 09/07/2022 12:47 PM EST Patient called back & is scheduled on 09/17/2022@2:30 pm for BRM. Toshia Buenrostro * Telephone Encounter - Toshia Dailey Chitra - 09/07/2022 9:51 AM EST Lvm for patient to call back to schedule with Dr Anderson. Schedule out a couple of days after MRI and CT. Toshia Buenrostro * Telephone Encounter - Lauren Thurman RN - 09/07/2022 9:41 AM EST Pt called and is scheduled for CT scan and MRI Saturday09/11/22 at 11:30 am at [facility]. PSS: Please call and schedule pt for follow up with Dr. Adnerson. Please give it a couple days between CT and MRI so we have reports back from [place]. Thanks you! Lauren Murrell RN * Telephone Encounter - Minal Corey RN - 09/06/2022 2:56 PM EST Pt is aware CT's needed. Dr Troy's office is scheduling CT CAP and MRI's. Pt is aware to call with scheduling of scans. Please add to BRM once he calls back with CT date. Give it a couple days between CT/appt so the reports can be back for BRM. Thank you, Minal * Telephone Encounter - Nick Anderson MD - 09/06/2022 12:35 PM EST I would need to see records before making any recommendations concerning appointment timing. I would at least need path reports and baseline CT scans. Thanks, BRM * Telephone Encounter - Minal Corey RN - 09/06/2022 11:54 AM EST Pt's friend Alida Barrgiancarlo called in to ask if [facility] would see pt. I called and spoke with the pt andhe was recently diagnosed with adenocarcinoma of rectum at [facility], by Dr Thalia Troy. Pt has an oncology referral to [facility] from her office. Cherelle Horowitz is going to obtain records. At this time pt is scheduled for MRI 10/01/22, but Dr Noland is attempting to get him scanned sooner. BRM: schedule pt before scans or wait until MRI's complete? Will we also need to schedule him with RAD ONC? Thank you, Minal Corey RN documented in this encounterSelect [facility] [place] NoteSubjective Patient ID: eMrvat Damon is a 71 y.o. male who presents for Follow-up (Adenocarcinoma of colon (Reveiw biopsy results)). I recently met with this patient to discuss his constipation while we were waiting on the results of his biopsy from his low rectal lesion. Unfortunately after I reviewed the pathology the patient has very low rectal adenocarcinoma. I decided to bring the patient back into the office to discuss his new cancer diagnosis and to discuss further work-up and plan. Currently the patient has an MRI but it is scheduled for over a month away which is unacceptable. I will call and have this expedited along with his CT scan of his chest abdomen and pelvis along with his CEA. I have discussed all of the planning and staging with the patient and his . I will request pathology slides for our pathology department to review. Unfortunately the patient had mismatch repair testing and is not a candidate for that type of therapy. I explained to the patient and his that more than likely he will need chemoradiation before any type of surgical intervention. I did explain that the surgical intervention would be a permanent colostomy, and APR. I would like to see if the patient is a candidate for MARIZA therapy. Review of Systems Constitutional: Positive for fatigue. HENT: Negative. Eyes: Negative. Respiratory: Negative. Cardiovascular: Negative. Gastrointestinal: Positive for anal bleeding and constipation. Endocrine: Negative. Genitourinary: Negative. Musculoskeletal: Negative. Skin: Negative. Allergic/Immunologic: Negative. Neurological: Negative. Hematological: Negative. Objective Visit Vitals BP (!) 134/94 (BP Location: Left arm, Patient Position: Sitting) Pulse 60 Temp 36.6 ???C (97.9 ???F) Physical Exam Constitutional: Appearance: Normal appearance. HENT: Head: Normocephalic and atraumatic. Nose: Nose normal. Cardiovascular: Rate and Rhythm: Normal rate. Pulmonary: Effort: Pulmonary effort is normal. Abdominal: General: Abdomen is flat. Palpations: Abdomen is soft. Musculoskeletal: General: Normal range of motion. Cervical back: Normal range of motion. Skin: General: Skin is warm. Neurological: General: No focal deficit present. Mental Status: He is alert and oriented to person, place, and time. Psychiatric: Mood and Affect: Mood normal. Behavior: Behavior normal. Thought Content: Thought content normal. Judgment: Judgment normal. Assessment/Plan Diagnoses and all orders for this visit: Adenocarcinoma of rectum (CMS/HCC) - Ambulatory referral to Oncology; Future Diagnosis Plan 1. Adenocarcinoma of rectum (CMS/HCC) Ambulatory referral to Oncology Ambulatory referral to Oncology Orders Placed This Encounter Procedures Ambulatory referral to Oncology Standing Status: Future Number of Occurrences: 1 Standing Expiration Date: 03/05/2023 Referral Priority: Routine Referral Type: Consultation Referral Reason: Specialty Services Required Referral Location: [facility] Requested Specialty: Oncology Number of Visits Requested: 1 Will get CEA today and will have MRI and CT scans soon. Once staging is complete we will discuss plan. No results found for this or any previous visit (from the past 36 hour(s)). No follow-ups on file.[facility]11-02[facility] Note Attestation signed by Thalia Troy MD at 08/22/2022 2:44 PM As the teaching physician, I have personally performed or re-performed the history of present illness, physical exam and medical decision making activities of the encounter and verified the medical student's documentation. I made pertinent changes as necessary to ensure accurate documentation. Subjective Patient ID: Mervat Damon is a 71 y.o. male who presents for Consult (rectal mass). Mervat Damon is a 71 yo male with PMH of hemorrhoids s/p hemorrhoidectomy, colon polyps, RA on methotrexate and prednisone, BPH, RA who presents as a referral for a rectal mass. Patient endorses 3-4 months of intermittent rectal pain and bright red blood per rectum with some clots, as well as significant straining and constipation. Last colonoscopy 10/2019 showed polyps and internal hemorrhoids. He was evaluated at [facility] on 08/20/22 via flexible sigmoidoscopy demonstrating a friable, firm lesion encompassing approximately 25-30% of the circumference of the anus right at the anal verge extending 3-4 cm into the anal canal with central ulceration. Biopsies were taken and pathology is pending. Patient is not currently on any blood thinners. Denies changes to his eating habits, no nausea, vomiting, abdominal pain or distension. He denies personal or family history of colon cancer. PSHx: Cataract extraction, Lap inguinal hernia repair, cysto, ESWL, Cervical spinal fusion, hammer toe operation, hemorrhoidectomy PMHx: BPH with urnary obstruction, cervical spinal stenosis, hemorrhoids, non-ischemic cardiomyopathy, RA Social: Non-smoker Family Hx: Pancreatic cancer - mother, Bladder cancer - father, Liver cancer - sister, prostate cancer - brother Review of Systems Constitutional: Negative. Eyes: Negative. Gastrointestinal: Positive for anal bleeding, constipation and rectal pain. Negative for abdominal distention, abdominal pain, nausea and vomiting. Endocrine: Negative. Genitourinary: Negative. Musculoskeletal: Positive for back pain. Skin: Negative. Allergic/Immunologic: Negative. Neurological: Negative. Hematological: Negative. Psychiatric/Behavioral: Negative. Objective Visit Vitals BP 129/84 (BP Location: Right arm, Patient Position: Standing) Pulse 77 Temp 36.8 ???C (98.2 ???F) Physical Exam Constitutional: Appearance: Normal appearance. HENT: Head: Normocephalic and atraumatic. Nose: Nose normal. Eyes: Conjunctiva/sclera: Conjunctivae normal. Pupils: Pupils are equal, round, and reactive to light. Cardiovascular: Rate and Rhythm: Normal rate. Pulmonary: Effort: Pulmonary effort is normal. Abdominal: General: Abdomen is flat. Palpations: Abdomen is soft. Musculoskeletal: Cervical back: Normal range of motion and neck supple. Skin: General: Skin is warm and dry. Neurological: General: No focal deficit present. Mental Status: He is alert and oriented to person, place, and time. Psychiatric: Mood and Affect: Mood normal. Behavior: Behavior normal. Assessment/Plan This is a 71 yo male with history of hemorrhoids s/p hemorrhoidectomy with 3-4 months of intermittent rectal pain and bleeding and a friable, ulcerated rectal lesion on flexible sigmoidoscopy. Differential diagnoses include stercoral ulcer versus cancer. Pathology pending. Lifestyle changes: Patient was extensively counseled on increasing oral water intake and bowel regimen including increased fiber Follow-up pathology of biopsies from flexible sigmoidoscopy [facility] or [facility] in one week to update on progress, biopsy results No diagnosis found. No orders of the defined types were placed in this encounter. No results found for this or any previous visit (from the past 36 hour(s)). No follow-ups on file.[facility]10[facility] Evaluation + Plan noteExtracted from: Title:Post-anesthesia - General Author:Jose Sevilla DO Date:08/20/22 Plan Transfer/ Discharge: Condition stable. Extracted from: Title:Pre-anesthesia - Endoscopy Author:Jose Birmingham Jr., DO Date:08/20/22 Plan [place] [employer]esthesi[employer] (ASA) physical status classification: Class III. Anesthetic Preoperative Plan Anesthesia: General. . Anesthetic plan, risks, benefits, and alternatives discussed with the patient and/or family. Patient verbalized understanding. Future Appointments Appointment Date:09/27/2022 01:00:00 PM Scheduled Provider:ASHLEY TRINIDAD PA-C [facility] Appointment Type:URO Office Visit Appointment Date:10/03/2022 01:15:00 PM Scheduled Provider:Santiago Kong MD [facility] Type:Cardiology Follow Up (FT) Future Scheduled Tests Laboratory* PSA Total 09/28/21 Radiology* XR Abdomen 1 View 09/20/22 [facility]10-25-2022 Hospital Discharge instructions Follow Up Care 08/14/2022 09:27:21 With:Mervat SLAUGHTER Address: [address] [place] [address], [address] [place] [phone] Business (1) When:3 to 5 days [facility]08-11-2022 Hospital Discharge instructions Patient Education 05/31/2022 13:03:46 Budget-Friendly Healthy Eating Budget-Friendly Healthy Eating There are many ways to save money at the grocery store and continue to eat healthy. You can be successful if you: Plan meals according to your budget. Make a grocery list and only purchase food according to your grocery list. Prepare food yourself. What are tips for following this plan? Reading food labels Compare food labels between brand name foods and the store brand. Often the nutritional value is the same, but the store brand is lower cost. Look for products that do not have added sugar, fat, or salt (sodium). These often cost the same but are healthier for you. Products may be labeled as: ?Sugar-free. ?Nonfat. ?Low-fat. ?Sodium-free. ?Low-sodium. Look for lean ground beef labeled as at least 92% lean and 8% fat. Shopping Buy only the items on your grocery list and go only to the areas of the store that have the items on your list. Use coupons only for foods and brands you normally buy. Avoid buying items you wouldn't normally buy simply because they are on sale. Check online and in newspapers for weekly deals. Buy healthy items from the bulk bins when available, such as herbs, spices, flour, pasta, nuts, anddried fruit. Buy fruits and vegetables that are in season. Prices are usually lower on in- season produce. Look at the unit sandoval on the sandoval tag. Use it to compare different brands and sizes to find out which item is the best deal. Choose healthy items that are often low-cost, such as carrots, potatoes, apples, bananas, and oranges. Dried or canned beans are a low-cost protein source. Buy in bulk and freeze extra food. Items you can buy in bulk include meats, fish, poultry, frozen fruits, and frozen vegetables. Avoid buying [id number]-ui-[id number] foods, such as pre-cut fruits and vegetables and pre-made salads. If possible, shop around to discover where you can find the best prices. Consider other retailers such as [employer] stores, larger wholesale stores, local fruit and vegetable [employer], and [employer] markets. Do not shop when you are hungry. If you shop while hungry, it may be hard to stick to your list andbudget. Resist impulse buying. Use your grocery list as your official plan for the week. Buy a variety of vegetables and fruits by purchasing fresh, frozen, and canned items. Look at the top and bottom shelves for deals. Foods at eye level (eye level of an adult or child) are usually more expensive. Be efficient with your time when shopping. The more time you spend at the store, the more money youare likely to spend. To save money when choosing more expensive foods like meats and dairy: ?Choose cheaper cuts of meat, such as bone-in chicken thighs and drumsticks instead of skinless andboneless chicken. When you are ready to prepare the chicken, you can remove the skin yourself to make it healthier. ?Choose lean meats like chicken or turkey instead of beef. ?Choose canned seafood, such as tuna, salmon, or sardines. ?Buy eggs as a low-cost source of protein. ?Buy dried beans and peas, such as lentils, split peas, or kidney beans instead of meats. Dried beans and peas are a good alternative source of protein. ?Buy the larger tubs of yogurt instead of individual-sized containers. Choose water instead of sodas and other sweetened beverages. Avoid buying chips, cookies, and other junk food. These items are usually expensive and not healthy. Cooking Make extra food and freeze the extras in meal-sized containers or in individual portions for fast meals and snacks. Pre-cook on days when you have extra time to prepare meals in advance. You can keep these meals in the fridge or freezer and reheat for a quick meal. When you come home from the grocery store, wash, peel, and cut fruits and vegetables so they are ready to use and eat. This will help reduce food waste. Meal planning Do not eat out or get fast food. Prepare food at home. Make a grocery list and make sure to bring it with you to the store. If you have a smart phone, youcould use your phone to create your shopping list. Plan meals and snacks according to a grocery list and budget you create. Use leftovers in your meal plan for the week. Look for recipes where you can cook once and make enough food for two meals. Include budget-friendly meals like stews, casseroles, and stir-rose dishes. Try some meatless meals or try no cook meals like salads. Make sure that half your plate is filled with fruits or vegetables. Choose from fresh, frozen, or canned fruits and vegetables. If eating canned, remember to rinse them before eating. This will remove any excess salt added for packaging. Summary Eating healthy on a budget is possible if you plan your meals according to your budget, purchase according to your budget and grocery list, and prepare food yourself. Tips for buying more food on a limited budget include buying generic brands, using coupons only forfoods you normally buy, and buying healthy items from the bulk bins when available. Tips for buying cheaper food to replace expensive food include choosing cheaper, lean cuts of meat,and buying dried beans and peas. This information is not intended to replace advice given to you by your health care provider. Make sure you discuss any questions you have with your health care provider. Document Released: 06/10/2015 Document Revised: 10/08/2018 Document Reviewed: 10/08/2018 [employer] Patient Education 2020 [employer]. 05/31/2022 13:03:45 BMI for Adults BMI for Adults Body mass index (BMI) is a number that is calculated from a person's weight and height. BMI may help to estimate how much of a person's weight is composed of fat. BMI can help identify those who may be at higher risk for certain medical problems. How is BMI used with adults? BMI is used as a screening tool to identify possible weight problems. It is used to check whether aperson is obese, overweight, healthy weight, or underweight. How is BMI calculated? BMI measures your weight and compares it to your height. This can be done either in [place] ([place] or metric measurements. Note that charts are available to help you find your BMI quickly and easily without having to do these calculations yourself. To calculate your BMI in [place] measurements, your health care provider will: 1.Measure your weight in pounds (lb). 2.Multiply the number of pounds by 703. For example, for a person who weighs 180 lb, multiply that number by 703, which equals 126,540. 3.Measure your height in inches (in). Then multiply that number by itself to get a measurement called inches squared. For example, for a person who is 70 in tall, the inches squared measurement is 70 in x 70 in, which equals 4900 inches squared. 4.Divide the total from Step 2 (number of lb x 703) by the total from Step 3 (inches squared): 126,540 4900 = 25.8. This is your BMI. To calculate your BMI in metric measurements, your health care provider will: 1.Measure your weight in kilograms (kg). 2.Measure your height in meters (m). Then multiply that number by itself to get a measurement called meters squared. For example, for a person who is 1.75 m tall, the meters squared measurement is 1.75 m x 1.75 m, which is equal to 3.1 meters squared. 3.Divide the number of kilograms (your weight) by the meters squared number. In this example: 70 3.1 = 22.6. This is your BMI. How is BMI interpreted? To interpret your results, your health care provider will use BMI charts to identify whether you are underweight, normal weight, overweight, or obese. The following guidelines will be used: Underweight: BMI less than 18.5. Normal weight: BMI between 18.5 and 24.9. Overweight: BMI between 25 and 29.9. Obese: BMI of 30 and above. Please note: Weight includes both fat and muscle, so someone with a muscular build, such as an athlete, may havea BMI that is higher than 24.9. In cases like these, BMI is not an accurate measure of body fat. To determine if excess body fat is the cause of a BMI of 25 or higher, further assessments may needto be done by a health care provider. BMI is usually interpreted in the same way for men and women. Why is BMI a useful tool? BMI is useful in two ways: Identifying a weight problem that may be related to a medical condition, or that may increase the risk for medical problems. Promoting lifestyle and diet changes in order to reach a healthy weight. Summary Body mass index (BMI) is a number that is calculated from a person's weight and height. BMI may help to estimate how much of a person's weight is composed of fat. BMI can help identify those who may be at higher risk for certain medical problems. BMI can be measured using Fijian measurements or metric measurements. To interpret your results, your health care provider will use BMI charts to identify whether you are underweight, normal weight, overweight, or obese. This information is not intended to replace advice given to you by your health care provider. Make sure you discuss any questions you have with your health care provider. Document Released: 06/18/2005 Document Revised: 09/19/2018 Document Reviewed: 08/20/2018 [employer] Patient Education 2020 [employer]. 05/31/2022 13:03:43 Dizziness Dizziness Dizziness is a common problem. It is a feeling of unsteadiness or light- headedness. You may feel like you are about to faint. Dizziness can lead to injury if you stumble or fall. Anyone can become dizzy, but dizziness is more common in older adults. This condition can be caused by a number of things, including medicines, dehydration, or illness. Follow these instructions at home: Eating and drinking Drink enough fluid to keep your urine clear or pale yellow. This helps to keep you from becoming dehydrated. Try to drink more clear fluids, such as water. Do not drink alcohol. Limit your caffeine intake if told to do so by your health care provider. Check ingredients and nutrition facts to see if a food or beverage contains caffeine. Limit your salt (sodium) intake if told to do so by your health care provider. Check ingredients and nutrition facts to see if a food or beverage contains sodium. Activity Avoid making quick movements. ?Rise slowly from chairs and steady yourself until you feel okay. ?In the morning, first sit up on the side of the bed. When you feel okay, stand slowly while you hold onto something until you know that your balance is fine. If you need to dimethylaniline sulfator operator one place for a long time, move your legs often. Tighten and relax the muscles in your legs while you are standing. Do not drive or use heavy machinery if you feel dizzy. Avoid bending down if you feel dizzy. Place items in your home so that they are easy for you to reach without leaning over. Lifestyle Do not use any products that contain nicotine or tobacco, such as cigarettes and e-cigarettes. If you need help quitting, ask your health care provider. Try to reduce your stress level by using methods such as yoga or meditation. Talk with your health care provider if you need help to manage your stress. General instructions Watch your dizziness for any changes. Take hyik-ydd-ibtvmik and prescription medicines only as told by your health care provider. Talk with your health care provider if you think that your dizziness is caused by a medicine that you are taking. Tell a friend or a family member that you are feeling dizzy. If he or she notices any changes in your behavior, have this person call your health care provider. Keep all follow-up visits as told by your health care provider. This is important. Contact a health care provider if: Your dizziness does not go away. Your dizziness or light-headedness gets worse. You feel nauseous. You have reduced hearing. You have new symptoms. You are unsteady on your feet or you feel like the room is spinning. Get help right away if: You vomit or have diarrhea and are unable to eat or drink anything. You have problems talking, walking, swallowing, or using your arms, hands, or legs. You feel generally weak. You are not thinking clearly or you have trouble forming sentences. It may take a friend or family member to notice this. You have chest pain, abdominal pain, shortness of breath, or sweating. Your vision changes. You have any bleeding. You have a severe headache. You have neck pain or a stiff neck. You have a fever. These symptoms may represent a serious problem that is an emergency. Do not wait to see if the symptoms will go away. Get medical help right away. Call your local emergency services (911 in the [place] Do not drive yourself to the hospital. Summary Dizziness is a feeling of unsteadiness or light-headedness. This condition can be caused by a number of things, including medicines, dehydration, or illness. Anyone can become dizzy, but dizziness is more common in older adults. Drink enough fluid to keep your urine clear or pale yellow. Do not drink alcohol. Avoid making quick movements if you feel dizzy. Monitor your dizziness for any changes. This information is not intended to replace advice given to you by your health care provider. Make sure you discuss any questions you have with your health care provider. Document Released: 04/02/2002 Document Revised: 10/10/2018 Document Reviewed: 11/09/2017 [employer] Patient Education 2020 [employer]. 05/31/2022 13:03:39 Hypotension Hypotension As your heart beats, it forces blood through your body. Hypotension, commonly called low blood pressure, is when the force of blood pumping through your arteries is too weak. Arteries are blood vessels that carry blood from the heart throughout the body. Depending on the cause and severity, hypotension may be harmless (benign) or may cause serious problems (be critical). When blood pressure is too low, you may not get enough blood to your brain or to the rest of your organs. This can cause weakness, light-headedness, rapid heartbeat, and fainting. What are the causes? This condition may be caused by: Blood loss. Loss of body fluids (dehydration). Heart problems. Hormone (endocrine) problems. . Severe infection. Lack of certain nutrients. Severe allergic reactions (anaphylaxis). Certain medicines, such as blood pressure medicine or medicines that make the body lose excess fluids (diuretics). Sometimes, hypotension may be caused by not taking medicine as directed, such as taking too much of a certain medicine. What increases the risk? The following factors may make you more likely to develop this condition: Age. Risk increases as you get older. Conditions that affect the heart or the central nervous system. Taking certain medicines, such as blood pressure medicine or diuretics. Being . What are the signs or symptoms? Common symptoms of this condition include: Weakness. Light-headedness. Dizziness. Blurred vision. Fatigue. Rapid heartbeat. Fainting, in severe cases. How is this diagnosed? This condition is diagnosed based on: Your medical history. Your symptoms. Your blood pressure measurement. Your health care provider will check your blood pressure when you are: ?Lying down. ?Sitting. ?Standing. A blood pressure reading is recorded as two numbers, such as 120 over 80 (or 120/80). The first ( top ) number is called the systolic pressure. It is a measure of the pressure in your arteries as your heart beats. The second ( bottom ) number is called the diastolic pressure. It is a measure of the pressure in your arteries when your heart relaxes between beats. Blood pressure is measured in a unit called mm Hg. Healthy blood pressure for most adults is 120/80. If your blood pressure is below90/60, you may be diagnosed with hypotension. Other information or tests that may be used to diagnose hypotension include: Your other vital signs, such as your heart rate and temperature. Blood tests. Tilt table test. For this test, you will be safely secured to a table that moves you from a lying position to an upright position. Your heart rhythm and blood pressure will be monitored during the test. How is this treated? Treatment for this condition may include: Changing your diet. This may involve eating more salt (sodium) or drinking more water. Taking medicines to raise your blood pressure. Changing the dosage of certain medicines you are taking that might be lowering your blood pressure. Wearing compression stockings. These stockings help to prevent blood clots and reduce swelling in your legs. In some cases, you may need to go to the hospital for: Fluid replacement. This means you will receive fluids through an IV. Blood replacement. This means you will receive donated blood through an IV (transfusion). Treating an infection or heart problems, if this applies. Monitoring. You may need to be monitored while medicines that you are taking wear off. Follow these instructions at home: Eating and drinking Drink enough fluid to keep your urine pale yellow. Eat a healthy diet, and follow instructions from your health care provider about eating or drinkingrestrictions. A healthy diet includes: ?Fresh fruits and vegetables. ?Whole grains. ?Lean meats. ?Low-fat dairy products. Eat extra salt only as directed. Do not add extra salt to your diet unless your health care provider told you to do that. Eat frequent, small meals. Avoid standing up suddenly after eating. Medicines Take ttub-hbi-yfwwhxm and prescription medicines only as told by your health care provider. ?Follow instructions from your health care provider about changing the dosage of your current medicines, if this applies. ?Do not stop or adjust any of your medicines on your own. General instructions Wear compression stockings as told by your health care provider. Get up slowly from lying down or sitting positions. This gives your blood pressure a chance to adjust. Avoid hot showers and excessive heat as directed by your health care provider. Return to your normal activities as told by your health care provider. Ask your health care provider what activities are safe for you. Do not use any products that contain nicotine or tobacco, such as cigarettes, e- cigarettes, and chewing tobacco. If you need help quitting, ask your health care provider. Keep all follow-up visits as told by your health care provider. This is important. Contact a health care provider if you: Vomit. Have diarrhea. Have a fever for more than 2 3 days. Feel more thirsty than usual. Feel weak and tired. Get help right away if you: Have chest pain. Have a fast or irregular heartbeat. Develop numbness in any part of your body. Cannot move your arms or your legs. Have trouble speaking. Become sweaty or feel light-headed. Faint. Feel short of breath. Have trouble staying awake. Feel confused. Summary Hypotension is when the force of blood pumping through your arteries is too weak. Hypotension may be harmless (benign) or may cause serious problems (be critical). Treatment for this condition may include changing your diet, changing your medicines, and wearing compression stockings. In some cases, you may need to go to the hospital for fluid or blood replacement. This information is not intended to replace advice given to you by your health care provider. Make sure you discuss any questions you have with your health care provider. Document Released: 10/07/2006 Document Revised: 04/02/2019 Document Reviewed: 04/02/2019 [employer] Patient Education 2020 [employer]. Follow Up Care 05/30/2022 10:32:48 With:VALERIE ROBERTS CNP Address: [address] [place] [address] When:7 to 10 days only if needed [facility] [place] 11-26-2021 Hospital Discharge instructions Follow Up Care 09/15/2021 11:43:54 With:Santiago Kong MD Address: When:6 months Comments:Call for sooner apt with new/worsening symptoms [facility]06-14-2021 NotePROCEDURE: XR FOOT LT MIN 3 VIEWS HISTORY: Postoperative pain COMPARISON: XR foot bilateral 02/02/2021 FINDINGS: BONES:Prosthetic replacement of the distal end of the second metatarsal; interval removal of the 2 proximal screws. Stable pin placement within the second toe proximal interphalangeal joint. SOFT TISSUES:Mild dorsal soft tissue swelling, likely secondary to recent screw removal. EFFUSION:None visible. OTHER: Negative. IMPRESSION: 1. Stable surgical changes with revision since prior study. Electronically authenticated by: SHANTEL COPELAND Date: 2021-04-03 13:38[facility]01-25[facility]2020 Evaluation + Plan note Future Appointments Appointment Date:11/09/2022 03:00:00 PM Scheduled Provider: Location:.CARDIO Appointment Type:CV Echo (FT) Appointment Date:11/14/2022 01:45:00 PM Scheduled Provider:Santiago Kong MD Location[facility] Appointment Type:Cardiology Follow Up (FT) Future Scheduled Tests Radiology* XR Abdomen 1 View 09/20/22 * Echo Transthoracic Complete 11/09/22 [facility] evaluation + Plan note Future Appointments Appointment Date:04/03/2022 11:30:00 AM Scheduled Provider: Location:.Cardiology Clinic Appointment Type:Cardiology Follow Up (FT) Appointment Date:06/21/2022 09:00:00 AM Scheduled Provider:Edward Kaufman DO Location:.ONCOLOGY Appointment Type:ONC Office Visit 15 (FT) Appointment Date:09/27/2022 01:00:00 PM Scheduled Provider:ASHLEY TRINIDAD PA-C Location:[facility] Appointment Type:URO Office Visit Future Scheduled Tests Laboratory* PSA Total 09/28/21 Radiology* [facility]dom[facility]ments Appointment Date:06/21/2022 09:00:00 AM Scheduled Provider:Edward Kaufman DO [facility] Type:[facility] Office Visit 15 (FT) Appointment Date:09/27/2022 01:00:00 PM Scheduled Provider:ASHLEY TRINIDAD PA-C [facility] Office Visit Appointment Date:10/03/2022 01:15:00 PM Scheduled Provider:Santiago Kong MD [facility] Type:Cardiology Follow Up (FT) Future Scheduled Tests Laboratory* PSA Total 09/28/21 Radiology* XR Abdomen 1 View [facility]20/[facility] App[facility]ments Appointment Date:08/28/2022 12:00:00 PM Scheduled Provider:Libia Watson CNP Location:[facility] Appointment Type:BADH Screening Appointment Date:09/27/2022 01:00:00 PM Scheduled Provider:ASHLEY TRINIDAD PA-C [facility] Type:[facility]O Office Visit Appointment Date:10/03/2022 01:15:00 PM Scheduled Provider:Santiago Kong MD [facility] Type:Cardiology Follow Up (FT) Future Scheduled Tests Laboratory* PSA Total 09/28/21 Radiology* XR Abdomen 1 View 09/20/22 [facility] Future App[facility]ments Appointment Date:08/20/2022 07:30:00 AM Scheduled Provider: Location:[facility] Appointment Type:Surgery FT Appointment Date:09/27/2022 01:00:00 PM Scheduled Provider:ASHLEY TRINIDAD PA-C [facility] Type:[facility]O Office Visit Appointment Date:10/03/2022 01:15:00 PM Scheduled Provider:Santiago Kong MD [facility] Type:Cardiology Follow Up (FT) Future Scheduled Tests Laboratory* PSA Total 09/28/21 Radiology* XR Abdomen 1 View 09/20/22 [facility] [place] Evaluation + Plan note Future Appointments Appointment Date:10/17/2022 01:00:00 PM Scheduled Provider:ASHLEY TRINIDAD PA-C Location:[facility] Appointment Type:URO Office Visit Appointment Date:11/14/2022 01:45:00 PM Scheduled Provider:Santiago Kong MD [facility] Type:Cardiology Follow Up (FT) Future Scheduled Tests Radiology* XR Abdomen 1 View 09/20/22 * Echo Transthoracic [facility]03[facility] Appointment Date:01/22/2023 03:30:00 PM Scheduled Provider:Santiago Kong MD [facility] Type:Cardiology Follow Up (FT) Future Scheduled Tests Radiology* XR Abdomen 1 View 09/20/22 [facility] App[facility]ments Appointment Date:04/29/2023 08:45:00 AM Scheduled Provider:Cyndee SANCHEZ CNP [facility] Type:Cardiology Follow Up (FT) Future Scheduled Tests Radiology* XR Abdomen 1 View 09/20/22 [facility] App[facility]ments Appointment Date:05/07/2023 01:30:00 PM Scheduled Provider:Bryon Cruz MD Location:[facility] Appointment Type:Pain Management - New (FT) Future Scheduled Tests Radiology* XR Abdomen 1 View 09/20/22 [facility] App[facility]ments Appointment Date:07/05/2023 10:30:00 AM Scheduled Provider: [facility] [place] [facility] Type:PT Re-Eval 45 (FT) Appointment Date:07/09/2023 07:00:00 AM Scheduled Provider: [facility] Type:PT 45 (FT) Appointment Date:07/12/2023 07:00:00 AM Scheduled Provider: [facility] Type:PT 45 (FT) Appointment Date:07/16/2023 07:00:00 AM Scheduled Provider: [facility] [place] [facility] Type:PT 45 (FT) Appointment Date:07/18/2023 03:00:00 PM Scheduled Provider: [facility] [place] [facility] Type:PT Re-Eval 45 (FT) Appointment Date:07/22/2023 06:45:00 AM Scheduled Provider: Location:[place] Appointment Type:PT 45 (FT) Appointment Date:07/25/2023 10:00:00 AM Scheduled Provider: Location:[place] Appointment Type:PT Re-Eval 45 (FT) Future Scheduled Tests Radiology* XR Abdomen 1 View 09/20/22 [facility] + Plan note Future Appointments Appointment Date:11/01/2023 01:45:00 PM Scheduled Provider:Santiago Kong MD Location:FT.Cardiology Clinic Appointment Type:Cardiology Follow Up (FT) Future Scheduled Tests Radiology* XR Abdomen 1 View 09/20/22 [facility] note* Diagnosis Rectal cancer (HCC)- Primary Malignant neoplasm of rectum Rheumatoid arthritis involving multiple sites, unspecified whether rheumatoid factor present (HCC) documented [facility]* Diagnosis Rectal adenocarcinoma (HCC)- Primary Malignant neoplasm of rectum documented in [facility] encounter [facility] note* Diagnosis Rectal adenocarcinoma (HCC)- Primary Malignant neoplasm of rectum documented in this encounter [facility] note* Diagnosis Rectal adenocarcinoma (HCC)- Primary Malignant neoplasm of rectum documented [facility] encounter [facility] noteNo assessment information availableOhio [facility] Work Phone: Evaluation note* Diagnosis Rectal cancer (HCC)- Primary Malignant neoplasm of rectum Abnormal PET scan of lung Nonspecific abnormal results of pulmonary system function study documented in this encounter [facility] note* Diagnosis Adenopathy- Primary Enlargement of lymph nodes Adenopathy Enlargement of lymph nodes documented in this encounter [facility] note* Diagnosis Adenopathy Enlargement of lymph nodes Adenopathy Enlargement of lymph nodes documented in this encounter [facility] note* Diagnosis Rectal adenocarcinoma (HCC)- Primary Malignant neoplasm of rectum Adenopathy Enlargement of lymph nodes documented in this encounter [facility] note* Diagnosis Adenopathy- Primary Enlargement of lymph nodes Rectal adenocarcinoma (HCC) Malignant neoplasm of rectum Rheumatoid arthritis involving multiple sites, unspecified whether rheumatoid factor present (HCC) Adenopathy Enlargement of lymph nodes documented in this encounter [facility] note* Diagnosis Rectal cancer (HCC)- Primary Malignant neoplasm of rectum Pulmonary embolus with infarction (HCC) Other pulmonary embolism and infarction [facility] ([facility])- Primary Malignant neoplasm of rectum [facility] Diagnosis Rectal adenocarcinoma (HCC)- Primary Malignant neoplasm of rectum [facility] Rectal adenocarcinoma (HCC) Malignant neoplasm of rectum [facility] Diagnosis Rectal cancer (HCC)- Primary Malignant neoplasm of rectum Abnormal PET scan of lung Nonspecific abnormal results of pulmonary system function study Pulmonary embolus with infarction (HCC) Other pulmonary embolism and infarction Rheumatoid arthritis involving multiple sites, unspecified whether rheumatoid factor present (HCC) [facility] Diagnosis Rectal cancer (HCC)- Primary Malignant neoplasm of rectum [facility] Diagnosis Neoplasm related pain (acute) (chronic)- Primary [facility] Diagnosis Rectal cancer (HCC)- Primary Malignant neoplasm of rectum [facility] Diagnosis Rectal cancer (HCC) Malignant neoplasm of rectum [facility] Diagnosis Rectal cancer (HCC)- Primary Malignant neoplasm of rectum [facility] Diagnosis Rectal cancer (HCC)- Primary Malignant neoplasm of rectum [facility] Diagnosis Rectal cancer (HCC)- Primary Malignant neoplasm of rectum Rectal cancer (HCC)- Primary Malignant neoplasm of rectum [facility] Diagnosis Rectal cancer (HCC)- Primary Malignant neoplasm of rectum [facility] Diagnosis Rectal cancer (HCC)- Primary Malignant neoplasm of rectum Lung nodules Other nonspecific abnormal finding of lung field Cancer related pain Neoplasm related pain (acute) (chronic) [facility] Diagnosis Rectal cancer (HCC)- Primary Malignant neoplasm of rectum Lung nodules Other nonspecific abnormal finding of lung field Rectal cancer (HCC) Malignant neoplasm of rectum [facility] Rectal cancer (HCC)- Primary Malignant neoplasm of rectum Pre-procedure lab exam Pre-procedural laboratory examination Rectal cancer (HCC) Malignant neoplasm of rectum [facility] Diagnosis Rectal cancer (HCC)- Primary Malignant neoplasm of rectum [facility] Rectal cancer (HCC) Malignant neoplasm of rectum [facility] Diagnosis Rectal cancer (HCC)- Primary Malignant neoplasm of rectum [facility] Diagnosis Rectal cancer (HCC) Malignant neoplasm of rectum [facility] Diagnosis Rectal cancer (HCC)- Primary Malignant neoplasm of rectum [facility] Diagnosis Rectal cancer (HCC)- Primary Malignant neoplasm of rectum [facility] Diagnosis Rectal cancer (HCC)- Primary Malignant neoplasm of rectum [facility] Diagnosis Rectal cancer (HCC)- Primary Malignant neoplasm of rectum Rectal bleeding Hemorrhage of rectum and anus [facility] Diagnosis Rectal cancer (HCC)- Primary Malignant neoplasm of rectum Leg swelling Swelling of limb Left ankle swelling Effusion of ankle and foot joint [facility] Rectal cancer (HCC)- Primary Malignant neoplasm of rectum Rectal bleeding Hemorrhage of rectum and anus Acute deep vein thrombosis (DVT) of distal vein of left lower extremity (HCC) Family history of pancreatic cancer Family history of malignant neoplasm of gastrointestinal tract Family history of primary liver cancer Family history of malignant neoplasm of gastrointestinal tract [facility] Diagnosis Rectal cancer (HCC)- Primary Malignant neoplasm of rectum [facility] Diagnosis Rectal cancer (HCC)- Primary Malignant neoplasm of rectum Malignant neoplasm of rectum (HCC) Malignant neoplasm of rectum [facility] Diagnosis Rectal cancer (HCC)- Primary Malignant neoplasm of rectum Acute deep vein thrombosis (DVT) of distal vein of left lower extremity (HCC) [facility] Rectal cancer (HCC)- Primary Malignant neoplasm of rectum [facility] Rectal cancer (HCC) Malignant neoplasm of rect[facility] Rectal cancer (HCC)- Primary Malignant neoplasm of rectum [facility] Diagnosis Rectal cancer (HCC)- Primary Malignant neoplasm of rectum [facility] Diagnosis Rectal cancer (HCC)- Primary Malignant neoplasm of rectum [facility] Diagnosis Rectal cancer (HCC) Malignant neoplasm of rectum Primary hypercoagulable state (HCC) Primary hypercoagulable state Rheumatoid arthritis involving multiple sites, unspecified whether rheumatoid factor present (HCC) [facility] Diagnosis Rectal cancer (HCC)- Primary Malignant neoplasm of rectum Malignant neoplasm of prostate (HCC) Malignant neoplasm of prostate [facility] Diagnosis Rectal cancer (HCC)- Primary Malignant neoplasm of rectum [facility] Diagnosis Rectal cancer (HCC)- Primary Malignant neoplasm of rectum Primary hypercoagulable state (HCC) Primary hypercoagulable state Rheumatoid arthritis involving multiple sites, unspecified whether rheumatoid factor present (HCC) [facility] Diagnosis Rectal cancer (HCC)- Primary Malignant neoplasm of rectum [facility] Diagnosis Rectal cancer (HCC) Malignant neoplasm of rectum [facility] Diagnosis Encounter for follow-up surveillance of rectal cancer- Primary Unspecified follow-up examination Malignant neoplasm of rectum (HCC) Malignant neoplasm of rectum [facility] Diagnosis Neoplasm related pain (acute) (chronic) [facility]* Diagnosis Hypokalemia- Primary Hypopotassemia [facility]* Diagnosis Rectal cancer (HCC) Malignant neoplasm of rectum [facility] Diagnosis Rectal cancer (HCC)- Primary Malignant neoplasm of rectum Neoplasm related pain (acute) (chronic) Rheumatoid arthritis involving multiple sites, unspecified whether rheumatoid factor present (HCC) Acute deep vein thrombosis (DVT) of distal vein of left lower extremity (HCC) [facility] Diagnosis Rectal cancer (HCC)- Primary Malignant neoplasm of rectum [facility] Diagnosis Rectal cancer (HCC) Malignant neoplasm of rectum [facility] Diagnosis Malignant neoplasm of rectum (HCC)- Primary Malignant neoplasm of rectum [facility]* Diagnosis Encounter for follow-up surveillance of rectal cancer- Primary Unspecified follow-up examination [facility] Diagnosis Encounter for follow-up surveillance of rectal cancer Unspecified follow-up examination [facility] Diagnosis Rectal cancer (HCC)- Primary Malignant neoplasm of rectum [facility] Diagnosis Rectal cancer (HCC)- Primary Malignant neoplasm of rectum [facility] Diagnosis Encounter for follow-up surveillance of rectal cancer- Primary Unspecified follow-up examination documented in this encounter [facility] Narrative - Reported* Type Description Date Medical History Rheumatoid arthritis Medical History osteoarthitis Medical History Vericose veins Medical History hypertension Medical History H/O dVT / PE 2017 Medical History colon cancer Medical History cataracts Medical History kidney stones Medical History pneumonia Surgical History c-spine Fusion x2 - dr marcum 2012 Surgical History B/L venous ablation 2007 Surgical History 7 lithotripsies - Dr. Mckee Surgical History (l) foot, 2nd toe dudley int replacement - dr. Stevens Surgical History B/l Cataracts Late 2018 Hospitalization History see surg [facility] Other Hospital course Narrative No data available for this section [facility] No data available for this section [facility] No data available for this section [facility] ([facility] Outpatient Procedure (Routine) - Authorized Specialty Diagnoses / Procedures Referred By Rosanne engle Referred To Contact [facility] [place] Diagnoses Adenopathy Procedures ECG COMPLETE ECG ROUTINE ECG W/LEAST 12 LDS W/I&R Hang Maier MD [address] [place] [address] [facility] [place] [address] Referral ID Status Reason Start Date Expiration Date Visits Requested Visits Authorized [id number] Authorized Auto-Generat ed Referral 2 2023 1 1 [facility] for referral (narrative)* Diagnostic Procedure Only (Routine) - Pending Review Specialty Diagnoses / Procedures Referred By Rosanne engle Referred To Contact US IMAGING Diagnoses Leg swelling Procedures US DVT LOWER LEFT DUP-SCAN XTR VEINS UNILATERAL/LIMITED STUDY Ryan Hollis, MARIA ELENA [address] [place] [address] [place] [address] Us Imaging Referral ID Status Reason Start Date Expiration Date Visits Requested Visits Authorized [id number] Pending Review Auto-Generat ed Referral 01/22/2023 02/21/2024 1 1 [facility] for referral (narrative)* Outpatient Procedure (Routine) - Pending Review Specialty Diagnoses / Procedures Referred By Contac t Referred To Contact [facility] [place] Diagnoses Encounter for follow-up surveillance of rectal cancer Procedures SIGMOIDOSCOPY SIGMOIDOSCOPY FLX DX W/COLLJ SPE[place] [address] [address] [facility] [address] [place] [address] [address] Referral ID Status Reason Start Date Expiration Date Visits Requested Visits Authorized [id number] Pending Review Auto-Generat ed Referral 07/24/2023 07/24/2024 1 1 [facility] for referral (narrative)* Outpatient Procedure (Routine) - Closed Specialty Diagnoses / Procedures Referred By Contac t Referred To Contact [facility] [place] Diagnoses Encounter for follow-up surveillance of rectal cancer Procedures SIGMOIDOSCOPY SIGMOIDOSCOPY FLX DX W/COLLJ SPEC BR/[place] [address] [address] [facility] [address] [place] [address] [facility] [address] [place] [address] Referral ID Status Reason Start Date Expiration Date V isits Requested Visits Authorized [id number] Closed Auto-Generate d Referral 05/03/2023 05/03/2024 1 1 [facility] for referral (narrative)* Outpatient Procedure (Routine) - Closed Specialty Diagnoses / Procedures Referred By Contac t Referred To Contact [facility] [place] Diagnoses Rectal cancer (HCC) Procedures COLONOSCOPY DIAGNOSTIC COLONOSCOPY FLX DX W/[place] [address] [address] [facility] [address] [place] [address] [address] Referral ID Status Reason Start Date Expiration Date V isits Requested Visits Authorized [id number] Closed Auto-Generate d Referral 02/07/2023 02/08/2024 1 1 [facility] for visit Narrative* Outpatient Procedure (Routine) - Closed Specialty Diagnoses / Procedures Referred By Contac t Referred To Contact [facility] [place] Diagnoses Adenopathy Procedures ECG COMPLETE ECG ROUTINE ECG W/LEAST 12 LDS W/I&R Hang Maier MD [address] [place] [address] [place] [address] Referral ID Status Reason Start Date Expiration Date V isits Requested Visits Authorized [id number] Closed Auto-Generate d Referral 2022 2023 1 1 [facility] for visit Narrative* Outpatient Procedure (Routine) - Closed Specialty Diagnoses / Procedures Referred By Contac t Referred To Contact [facility] Diagnoses Encounter for follow-up surveillance of rectal cancer Procedures SIGMOIDOSCOPY SIGMOIDOSCOPY FLX DX W/COLLJ SPEC [place] [address] [address] [place] [address] [address] Referral ID Status Reason Start Date Expiration Date V isits Requested Visits Authorized [id number] Closed Auto-Generate d Referral 05/03/2023 05/03/2024 1 1 [facility] for visit Narrative* Outpatient Procedure (Routine) - Closed Specialty Diagnoses / Procedures Referred By Contac t Referred To Contact [facility] Diagnoses Rectal cancer (HCC) Procedures COLONOSCOPY DIAGNOSTIC COLONOSCOPY FLX DX W/[place] [address] [address] [place] [address] [facility] [place] [address] Referral ID Status Reason Start Date Expiration Date V isits Requested Visits Authorized [id number] Closed Auto-Generate d Referral 02/07/2023 02/08/2024 1 1 [facility] Summary Purpose Family History No Family History Records FoundNo Family History Records FoundNo Family History Records FoundNo Family History Records FoundNo Family History Records Found No data available for this section No data available for this section No Family History Records FoundNo Family History Records FoundNo Family History Records FoundNo Family History Records Found Advance Directives No Advanced Directives Records Found Advance Directive Response Recorded Date/ Time Advance Directives No September 6:18pm Advance Directive Response Recorded Date/ Time Advance Directives No September 7:18pm Reason for Referral Reason *FU 07/01 EMG bila t upper and lower extremities Diagnosis 1 Cervical stenosis of spine (M48.02) Referral Organization [facility] u[facility] Referring Provider First Name Valencia Referring Provider Last Name Darin Referring Provider Specialty Nurse Pract itioner Referred Organization [facility] Referred Provider Shantel Langston Referred Address [address] [place], [place],[address] Referred Provider Specialty Neurology Referral Priority Routine General Notes Rika Shabazz 023 03:33:00 PM >Spoke with Dr. Cruz's office and Dr. Cruz does not them them or do they do them in their office. [facility] Central scheduling schedules them which she transferred me to Central Scheduling and they said that Dr. Langston comes in like twice a month and does them through [facility] but he is scheduled out to July. She said it would be better to send to his office Lopez Vjjohnie 06/18/2023 03:46:05 PM > thank you for the letting me know, I was not aware that is the way they did it, can we update the referrals to go through [facility]? Rika Shabazz 06/19/2023 09:08:47 AM >OK, will do. Thank you. Rika Shabazz 06/19/2023 09:47:30 AM >Received today and waiting for office notes to be locked before sending referral Rika Shabazz 06/20/2023 09:43:21 AM >Office notes are locked. [facility] request us to fill out their form and attach to Referral and send it to them and they will call patient to schedule. Referral was sent P2 Clinical Notes Office [phone] Reason 05/07/23 @ 1:30pm evaluate and treat Diagnosis 1 Cervical radiculopat hy (M54.12) Referral Organization [facility] Referring Provider First Name Valencia Referring Provider Last Name Torres Referring Provider Specialty Nurse Pract itioner Referred Organization [facility] Referred Provider Bryon Cruz Referred Address [address] [place], [place],[address] Referred Provider Specialty Pain Medicin e Referral Priority Routine Referral Appointment Date 2023-05-07 General Notes Ashley Shabazzant Dahl 023 10:03:13 AM >Received today. [facility] Pain Medicine 's office request us to fill out form and fax referral to them and they will review the referral and call patient. Referral was fax. Rika Shabazz 04/19/2023 09:24:32 AM >Spoke with Jonah at [facility] Pain Medicine 's office and patient has been scheduled for 05/07/23 @ 1:30pm Rika Shabazz 05/08/2023 11:42:50 AM >Spoke with Silvia at [facility] Pain Medicine office and patient was seen. She transferred me to [facility] Medical Records to get office notes Rika Shabazz 05/08/2023 11:46:09 AM >Spoke with Elba at [facility] Medical Records and she will fax the notes to us Rika Shabazz 05/08/2023 01:19:55 PM >Received consult notes Clinical Notes Office [phone] Reason 05/02/23 @ 2:00pm evaluate and treat - Left hip pain Diagnosis 1 Cervical radiculopat hy (M54.12) Referral Organization [facility] Referring Provider First Name Valencia Referring Provider Last Name Torres Referring Provider Specialty Nurse Prackadie andrews Referred Organization [facility] Referred Provider Jakob Mora Jr. Referred Address ,[place], [place],[address] Referred Provider Specialty Orthopedic S urgery Referral Priority Routine Referral Appointment Date 2023-05-02 General Notes Rika Shabazz 04/12/2 023 07:35:08 AM >Received today and referral was fax. They will review and call patient to schedule Rika Shabazz 04/19/2023 09:50:53 AM >Fax letter for appt update Rika Shabazz 05/01/2023 09:53:54 AM >Spoke with [facility] Orthopedic office and patient has been scheduled for 05/02/23 @ 2 Rika Shabazz 05/03/2023 08:50:48 AM >Reviewed [facility] and patient went to appt but I do not think the office notes are complete yet Rika Shabazz 05/06/2023 07:52:53 AM >Received consult notes from [facility] Clinical Notes Office [phone] Specialty Diagnoses / Procedures Referred By Contac t Referred To Contact CT IMAGING Diagnoses Malignant neoplasm of rectum (HCC) Procedures CT ABDOMEN W IVCON [place] ABDOMEN [place] [address] [address] [address] [address] Imaging Referral ID Status Reason Start Date Expiration Date Visits Requested Visits Authorized [id number] Pending Review Auto-Generat ed Referral 05/03/2023 06/01/2024 1 1 Specialty Diagnoses / Procedures Referred By Contac t Referred To Contact CT IMAGING Diagnoses Malignant neoplasm of rectum (HCC) Procedures CT CHEST W IVCON DIAGNOSTIC COMPUTED TOMOGRAPHY THORAX W/[place] [address] [address] [address] [address] Imaging Referral ID Status Reason Start Date Expiration Date Visits Requested Visits Authorized [id number] Pending Review Auto-Generat ed Referral 05/03/2023 06/01/2024 1 1 Specialty Diagnoses / Procedures Referred By Contac t Referred To Contact MR IMAGING Diagnoses Malignant neoplasm of rectum (HCC) Procedures MRI RECTUM WO/W IVCON MRI PELVIS W/O & W/[place] [address] [address] [facility] [address] [place] [address] Mr Imaging Referral ID Status Reason Start Date Expiration Date Visits Requested Visits Authorized [id number] Pending Review Auto-Generat ed Referral 05/03/2023 06/01/2024 1 1 Specialty Diagnoses / Procedures Referred By Rosanne t Referred To Contact [facility] Diagnoses Encounter for follow-up surveillance of rectal cancer Procedures SIGMOIDOSCOPY SIGMOIDOSCOPY FLX DX W/COLLJ SPEC BR/[place] [address] [address] [place] [address] [facility] [address] [place] [address] Referral ID Status Reason Start Date Expiration Date Visits Requested Visits Authorized [id number] Pending Review Auto-Generat ed Referral 05/03/2023 05/03/2024 1 1 Reason evaluate and treat Diagnosis 1 Cervical radiculopat hy (M54.12) Referral Organization [facility] Referring Provider First Name Valencia Referring Provider Last Name Torres Referring Provider Specialty Nurse Pract itioner Referred Organization [facility] Referred Provider Bryon Cruz Referred Address [address] [place] [phone] Referred Provider Specialty Anesthesiolo gy Referral Priority Routine Reason evaluate and treat - Left hip pain Diagnosis 1 Cervical radiculopat hy (M54.12) Referral Organization [facility] Referring Provider First Name Valencia Referring Provider Last Name Torres Referring Provider Specialty Nurse Pract itioner Referred Organization [facility] Referred Provider Jakob Mora Jr. Referred Address ,[place], [place],[address] Referred Provider Specialty Orthopedic S urgery Referral Priority Routine Specialty Diagnoses / Procedures Referred By Rosanne t Referred To Contact MR IMAGING Diagnoses Malignant neoplasm of rectum (HCC) Procedures MRI RECTUM WO/W IVCON MRI PELVIS W/O & W/[place] [address] [address] [place] [address] Mr Imaging Referral ID Status Reason Start Date Expiration Date Visits Requested Visits Authorized [id number] Authorized Auto-Generat ed Referral 02/07/2023 03/08/2024 1 1 Specialty Diagnoses / Procedures Referred By Rosanne t Referred To Contact [facility] Diagnoses Rectal cancer (HCC) Procedures COLONOSCOPY DIAGNOSTIC COLONOSCOPY FLX DX W/COLLJ SPEC [place] [address] [address] [facility] [address] [place] [address] [facility] [address] [place] [address] Referral ID Status Reason Start Date Expiration Date Visits Requested Visits Authorized [id number] Authorized Auto-Generat ed Referral 02/07/2023 02/08/2024 1 1 Specialty Diagnoses / Procedures Referred By Contac t Referred To Contact Colon and Rectal Surgery Diagnoses Rectal cancer (HCC) Procedures CONSULT TO [place] [address] [place] [address] [place] [address] [address] [facility] [address] [place] [address] Referral ID Status Reason Start Date Expiration Date Visits Requested Visits Authorized [id number] Ref Not Required PCP Requested Referral 02/04/2023 02/04/2024 1 1 Specialty Diagnoses / Procedures Referred By Contac t Referred To Contact Gastroenterology Diagnoses Rectal cancer (HCC) Rectal bleeding Procedures CONSULT TO GASTROENTEROLOGY OFFICE/[facility] 60-74 [facility]UTES Ryan Hollis, AZAEL.REMARKETING REP [address] [facility] [place] [address] Referral ID Status Reason Start Date Expiration Date Visits Requested Visits Authorized [id number] Authorized PCP Requested Referral 01/23/2023 01/23/2024 1 1 Specialty Diagnoses / Procedures Referred By Contac t Referred To Contact CT IMAGING Diagnoses Lung nodules Procedures CT CHEST W IVCON DIAGNOSTIC COMPUTED TOMOGRAPHY THORAX W/CONTRAST Nick Anderson MD [address] [place] [address] Ct Imaging Referral ID Status Reason Start Date Expiration Date Visits Requested Visits Authorized [id number] Authorized Auto-Generat ed Referral 11/19/2022 12/19/2023 1 1 Specialty Diagnoses / Procedures Referred By Contac t Referred To Contact CT IMAGING Diagnoses Lung nodules Rectal cancer (HCC) Procedures CT ABD/PEL W IVCON CT ABD & PELVIS W/CONTRAST Nick Anderson MD [address] [place] [address] [place] [address] Ct Imaging Referral ID Status Reason Start Date Expiration Date Visits Requested Visits Authorized [id number] Authorized Auto-Generat ed Referral 11/19/2022 12/19/2023 1 1 Specialty Diagnoses / Procedures Referred By Contac t Referred To Contact RADIATION ONCOLOGY Diagnoses Rectal adenocarcinoma (HCC) Procedures CT SIM PLANNING RADIATION ONCOLOGY THER RAD SIMULAJ-AIDED FIELD SETTING COMPLEX IMRT Dania Vásquez MD [address] [place] [address] [facility] [address] [place] [address] Referral ID Status Reason Start Date Expiration Date Visits Requested Visits Authorized [id number] Pending Review PCP Requested Referral 09/24/2022 12/23/2022 1 1 Specialty Diagnoses / Procedures Referred By Contac t Referred To Contact Radiation Oncology Diagnoses Rectal cancer (HCC) Procedures RAD/ONC CONSULT OFFICE/OUTPATIENT [facility] HIGH MDM 60-74 MINUTES Nick Anderson MD [address] [place] [address] [place] [address] Referral ID Status Reason Start Date Expiration Date Visits Requested Visits Authorized [id number] Authorized PCP Requested Referral 2 09/17/2023 1 1 Specialty Diagnoses / Procedures Referred By Contac t Referred To Contact MR IMAGING Diagnoses Rectal cancer (HCC) Procedures MRI ABDOMEN WO/W IVCON MRI ABDOMEN W/O & W/CONTRAST MATERIAL Nick Anderson MD [address] [place] [address] Mr Imaging Referral ID Status Reason Start Date Expiration Date Visits Requested Visits Authorized [id number] Pending Review Auto-Generat ed Referral 2 10/17/2023 1 1 Specialty Diagnoses / Procedures Referred By Contac t Referred To Contact MOLECULAR & FUNCTIONAL IMAGING Diagnoses Rectal cancer (HCC) Procedures NM PET/CT SKULL-THIGH INITIAL PET IMAGING CT ATTENUATION SKULL BASE MID-THIGH Nick Anderson MD [address] [place] [address] [place] [address] Molecular & Functional Imaging [address] [place], [place] [id number] Referral ID Status Reason Start Date Expiration Date Visits Requested Visits Authorized [id number] Authorized Auto-Generat ed Referral 2 10/17/2023 1 1 Chief Complaint and Reason for Visit Chief Complaint staging for rectal c a Chief Complaint M54.12 Chief Complaint M54.12 m54.12 Chief Complaint m54.12 G62.9 Medications Administered Section Inactive Administered Medications - up to 3 most recent administrations Medication Order MAR Action Action Date Dose Rate Site dexAMETHasone 10 mg/NS 50 mL (PYXIS) 10 mg ivpb (DECADRON) 10 mg, INTRAVENOUS, ONCE, 1 dose, On Sat12/25/22 at 0900, Refrigerate. New Bag/Syringe/Bottle 12/25/2022 9:06 AM EST 10 mg fluorouracil (ADRUCIL) 4,780 mg in NaCl 0.9% 102 mL in empty bag 4,780 mg (2,000 mg/m2 2.39 m2 Treatment Plan BSA from Recorded weight), INTRAVENOUS, at 2.2 mL/hr, Administer over 46 Hours, ONCE, 1 dose, On Sat12/25/22 at 0900, EXP: 01/01/23 Hazardous Chemotherapy Drug: Use appropriate PPE. Protect from Light. Apheresis and/or Portable Pump 12/25/2022 12:05 PM EST 4,780 mg 2.2 mL/hr Apheresis and/or Portable Pump 12/25/2022 12:00 PM EST 4,7 80 mg 2.2 mL/hr fluorouracil 717 mg injection (ADRUCIL) 717 mg (300 mg/m2 2.39 m2 Treatment Plan BSA from Recorded weight), INTRAVENOUS, ONCE, 1 dose, On Sat12/25/22 at 0900, Push over 2-4 minutes start immediately after leucovorin infusion is complete. EXP: 89912/27/22 Hazardous Chemotherapy Drug: Use appropriate PPE. Given 12/25/2022 12:00 PM EST 717 mg leucovorin 956 mg in D5W 105.8 mL 956 mg (400 mg/m2 2.39 m2 Treatment Plan BSA from Recorded weight), INTRAVENOUS, Administer over 2 Hours, ONCE, 1 dose, On Sat12/25/22 at 0900, APPROXIMATE TOTAL VOLUME ml; PROTECT FROM LIGHT ADMINISTER CONCURRENTLY WITH OXALIPLATIN. REFRIGERATE New Bag/Syringe/Bottle 12/25/2022 9:44 AM EST 956 mg oxaliplatin 143.4 mg in D5W 568.68 mL (ELOXATIN) 143.4 mg (60 mg/m2 2.39 m2 Treatment Plan BSA from Recorded weight), INTRAVENOUS, Administer over 2 Hours, ONCE, 1 dose, On Sat12/25/22 at 0900, Administer concurrently with leucovorin. Approx Total Volume: mL EXP: 1500 12/25/22 Hazardous Chemotherapy Drug: Use appropriate PPE. Antineoplastic Irritant with Vesicant Potential. Flush line with D5W before and after administration. New Bag/Syringe/Bottle 12/25/2022 9:44 AM EST 143.4 mg palonosetron 0.25 mg injection (ALOXI) 0.25 mg, INTRAVENOUS, ONCE, 1 dose, On Sat12/25/22 at 0900, Flush IV line with NS prior to and following administration. Given 12/25/2022 9:04 AM EST 0.25 mg Inactive Administered Medications - up to 3 most recent administrations Medication Order MAR Action Action Date Dose Rate Site sodium chloride 0.9 % (flush) 10-20 mL (BD POSIFLUSH) 10-20 mL, INTRAVENOUS, NEEDED, Starting on Sat12/27/22 at 1019, Until Sat12/27/22 at 1713, See Administration Instructions, If no IVAD access, may place IV if needed for labs or possible treatment. Flush 10-20ml on IV start and as needed. D5W or LR may be used in place of NS for medication that are incompatible (i.e. with oxaliplatin). Given 12/27/2022 10:25 AM EST 20 mL Inactive Administered Medications - up to 3 most recent administrations Medication Order MAR Action Action Date Dose Rate Site dexAMETHasone 10 mg/NS 50 mL (PYXIS) 10 mg ivpb (DECADRON) 10 mg, INTRAVENOUS, ONCE, 1 dose, On Sat01/08/23 at 0900, Refrigerate. New Bag/Syringe/Bottle 01/08/2023 9:02 AM EDT 10 mg fluorouracil (ADRUCIL) 4,860 mg in NaCl 0.9% 102 mL in empty bag 4,860 mg (2,000 mg/m2 2.43 m2 Treatment Plan BSA from Recorded weight), INTRAVENOUS, at 2.2 mL/hr, Administer over 46 Hours, ONCE, 1 dose, On Sat01/08/23 at 0900, EXP: 01/15/23 0900 Hazardous Chemotherapy Drug: Use appropriate PPE. Protect from Light. Apheresis and/or Portable Pump 01/08/2023 11:49 AM EDT 4,860 mg 2.2 mL/hr fluorouracil 729 mg injection (ADRUCIL) 729 mg (300 mg/m2 2.43 m2 Treatment Plan BSA from Recorded weight), INTRAVENOUS, ONCE, 1 dose, On Sat01/08/23 at 0900, Push over 2-4 minutes start immediately after leucovorin infusion is complete. EXP:01/10/23 09 Hazardous Chemotherapy Drug: Use appropriate PPE. Given 01/08/2023 11:45 AM EDT 729 mg leucovorin 972 mg in D5W 106.6 mL 972 mg (400 mg/m2 2.43 m2 Treatment Plan BSA from Recorded weight), INTRAVENOUS, Administer over 2 Hours, ONCE, 1 dose, On Sat01/08/23 at 0900, APPROXIMATE TOTAL VOLUME ml; PROTECT FROM LIGHT ADMINISTER CONCURRENTLY WITH OXALIPLATIN. EXP: 01/09/23 1500 RT REFRIGERATE New Bag/Syringe/Bottle 01/08/2023 9:28 AM EDT 972 mg oxaliplatin 145.8 mg in D5W 569.16 mL (ELOXATIN) 145.8 mg (60 mg/m2 2.43 m2 Treatment Plan BSA from Recorded weight), INTRAVENOUS, Administer over 2 Hours, ONCE, 1 dose, On Sat01/08/23 at 0900, Administer concurrently with leucovorin. Approx Total Volume: mL EXP:01/08/23 1500 Hazardous Chemotherapy Drug: Use appropriate PPE. Antineoplastic Irritant with Vesicant Potential. Flush line with D5W before and after administration. New Bag/Syringe/Bottle 01/08/2023 9:28 AM EDT 145.8 mg palonosetron 0.25 mg injection (ALOXI) 0.25 mg, INTRAVENOUS, ONCE, 1 dose, On Sat01/08/23 at 0900, Flush IV line with NS prior to and following administration. Given 01/08/2023 8:59 AM EDT 0.25 mg Inactive Administered Medications - up to 3 most recent administrations Medication Order MAR Action Action Date Dose Rate Site dexAMETHasone 10 mg/NS 50 mL (PYXIS) 10 mg ivpb (DECADRON) 10 mg, INTRAVENOUS, ONCE, 1 dose, On Sat01/10/23 at 1030, Refrigerate. New Bag/Syringe/Bottle 01/10/2023 10:21 AM EDT 10 mg NaCl 0.9% 1,000 mL INTRAVENOUS, at 999 mL/hr, Administer over 1 Hours, ONCE, 1 dose, On Sat01/10/23 at 1030 New Bag/Syringe/Bottle 01/10/2023 10:04 AM EDT 999 mL/hr ondansetron (PF) 8 mg injection (ZOFRAN) 8 mg, INTRAVENOUS, ONCE, 1 dose, On Sat01/10/23 at 1030 Given 01/10/2023 10:18 AM EDT 8 mg Inactive Administered Medications - up to 3 most recent administrations Medication Order MAR Action Action Date Dose Rate Site dexAMETHasone 10 mg/NS 50 mL (PYXIS) 10 mg ivpb (DECADRON) 10 mg, INTRAVENOUS, ONCE, 1 dose, On Sat01/22/23 at 0930, Refrigerate. New Bag/Syringe/Bottle 01/22/2023 9:35 AM EDT 10 mg fluorouracil (ADRUCIL) 4,860 mg in NaCl 0.9% 102 mL in empty bag 4,860 mg (2,000 mg/m2 2.43 m2 Treatment Plan BSA from Recorded weight), INTRAVENOUS, at 2.2 mL/hr, Administer over 46 Hours, ONCE, 1 dose, On Sat01/22/23 at 0930, EXP: 01/29/23 Hazardous Chemotherapy Drug: Use appropriate PPE. Protect from Light. Apheresis and/or Portable Pump 01/22/2023 12:24 PM EDT 4,860 mg 2.2 mL/hr fluorouracil 729 mg injection (ADRUCIL) 729 mg (300 mg/m2 2.43 m2 Treatment Plan BSA from Recorded weight), INTRAVENOUS, ONCE, 1 dose, On Sat01/22/23 at 0930, Push over 2-4 minutes start immediately after leucovorin infusion is complete. EXP: 92901/24/23 Hazardous Chemotherapy Drug: Use appropriate PPE. Given 01/22/2023 12:21 PM EDT 729 mg leucovorin 972 mg in D5W 106.6 mL 972 mg (400 mg/m2 2.43 m2 Treatment Plan BSA from Recorded weight), INTRAVENOUS, Administer over 2 Hours, ONCE, 1 dose, On Sat01/22/23 at 0930, APPROXIMATE TOTAL VOLUME ml; PROTECT FROM LIGHT ADMINISTER CONCURRENTLY WITH OXALIPLATIN. REFRIGERATE New Bag/Syringe/Bottle 01/22/2023 10:07 AM EDT 972 mg oxaliplatin 145.8 mg in D5W 569.16 mL (ELOXATIN) 145.8 mg (60 mg/m2 2.43 m2 Treatment Plan BSA from Recorded weight), INTRAVENOUS, Administer over 2 Hours, ONCE, 1 dose, On Sat01/22/23 at 0930, Administer concurrently with leucovorin. Approx Total Volume: mL EXP: 1530 01/22/23 Hazardous Chemotherapy Drug: Use appropriate PPE. Antineoplastic Irritant with Vesicant Potential. Flush line with D5W before and after administration. New Bag/Syringe/Bottle 01/22/2023 10:07 AM EDT 145.8 mg palonosetron 0.25 mg injection (ALOXI) 0.25 mg, INTRAVENOUS, ONCE, 1 dose, On Sat01/22/23 at 0930, Flush IV line with NS prior to and following administration. Given 01/22/2023 9:35 AM EDT 0.25 mg Inactive Administered Medications - up to 3 most recent administrations Medication Order MAR Action Action Date Dose Rate Site dexAMETHasone 10 mg/NS 50 mL (PYXIS) 10 mg ivpb (DECADRON) 10 mg, INTRAVENOUS, ONCE, 1 dose, On Sat01/24/23 at 1100, Refrigerate. New Bag/Syringe/Bottle 01/24/2023 10:59 AM EDT 10 mg NaCl 0.9% 1,000 mL INTRAVENOUS, at 999 mL/hr, Administer over 1 Hours, ONCE, 1 dose, On Sat01/24/23 at 1100 New Bag/Syringe/Bottle 01/24/2023 10:50 AM EDT 999 mL/hr ondansetron (PF) 8 mg injection (ZOFRAN) 8 mg, INTRAVENOUS, ONCE, 1 dose, On Sat01/24/23 at 1100 Given 01/24/2023 10:57 AM EDT 8 mg Inactive Administered Medications - up to 3 most recent administrations Medication Order MAR Action Action Date Dose Rate Site dexAMETHasone 10 mg/NS 50 mL (PYXIS) 10 mg ivpb (DECADRON) 10 mg, INTRAVENOUS, ONCE, 1 dose, On Sat02/07/23 at 1030, Refrigerate. New Bag/Syringe/Bottle 02/07/2023 10:47 AM EDT 10 mg NaCl 0.9% 1,000 mL INTRAVENOUS, at 999 mL/hr, Administer over 1 Hours, ONCE, 1 dose, On Sat02/07/23 at 1030 New Bag/Syringe/Bottle 02/07/2023 10:38 AM EDT 999 mL/hr ondansetron (PF) 8 mg injection (ZOFRAN) 8 mg, INTRAVENOUS, ONCE, 1 dose, On Sat02/07/23 at 1030 Given 02/07/2023 10:47 AM EDT 8 mg Inactive Administered Medications - up to 3 most recent administrations Medication Order MAR Action Action Date Dose Rate Site dexAMETHasone 10 mg/NS 50 mL (PYXIS) 10 mg ivpb (DECADRON) 10 mg, INTRAVENOUS, ONCE, 1 dose, On Sat02/19/23 at 1030, Refrigerate. New Bag/Syringe/Bottle 02/19/2023 10:24 AM EDT 10 mg fluorouracil (ADRUCIL) 4,820 mg in NaCl 0.9% 102 mL in empty bag 4,820 mg (2,000 mg/m2 2.41 m2 Treatment Plan BSA from Recorded weight), INTRAVENOUS, at 2.2 mL/hr, Administer over 46 Hours, ONCE, 1 dose, On Sat02/19/23 at 1030, EXP: 02/26/23 1015 Hazardous Chemotherapy Drug: Use appropriate PPE. Protect from Light. Apheresis and/or Portable Pump 02/19/2023 1:07 PM EDT 4,820 mg 2.2 mL/hr fluorouracil 723 mg injection (ADRUCIL) 723 mg (300 mg/m2 2.41 m2 Treatment Plan BSA from Recorded weight), INTRAVENOUS, ONCE, 1 dose, On Sat02/19/23 at 1030, Push over 2-4 minutes start immediately after leucovorin infusion is complete. EXP:02/21/23 1015 RT Hazardous Chemotherapy Drug: Use appropriate PPE. Given 02/19/2023 1:06 PM EDT 723 mg leucovorin 964 mg in D5W 106.2 mL 964 mg (400 mg/m2 2.41 m2 Treatment Plan BSA from Recorded weight), INTRAVENOUS, Administer over 2 Hours, ONCE, 1 dose, On Sat02/19/23 at 1030, APPROXIMATE TOTAL VOLUME ml; PROTECT FROM LIGHT ADMINISTER CONCURRENTLY WITH OXALIPLATIN. EXP: 02/20/23 1615 RT REFRIGERATE New Bag/Syringe/Bottle 02/19/2023 10:48 AM EDT 964 mg oxaliplatin 144.6 mg in D5W 568.92 mL (ELOXATIN) 144.6 mg (60 mg/m2 2.41 m2 Treatment Plan BSA from Recorded weight), INTRAVENOUS, Administer over 2 Hours, ONCE, 1 dose, On Sat02/19/23 at 1030, Administer concurrently with leucovorin EXP: 02/19/23 1615 RT Hazardous Chemotherapy Drug: Use appropriate PPE. Antineoplastic Irritant with Vesicant Potential. Flush line with D5W before and after administration. New Bag/Syringe/Bottle 02/19/2023 10:48 AM EDT 144.6 mg palonosetron 0.25 mg injection (ALOXI) 0.25 mg, INTRAVENOUS, ONCE, 1 dose, On Sat02/19/23 at 1030, Flush IV line with NS prior to and following administration. Given 02/19/2023 10:24 AM EDT 0.25 mg Inactive Administered Medications - up to 3 most recent administrations Medication Order MAR Action Action Date Dose Rate Site dexAMETHasone 10 mg/NS 50 mL (PYXIS) 10 mg ivpb (DECADRON) 10 mg, INTRAVENOUS, ONCE, 1 dose, On Kalina 02/21/23 at 1130, Refrigerate. New Bag/Syringe/Bottle 02/21/2023 11:50 AM EDT 10 mg NaCl 0.9% 1,000 mL INTRAVENOUS, at 999 mL/hr, Administer over 1 Hours, ONCE, 1 dose, On Sat02/21/23 at 1130 New Bag/Syringe/Bottle 02/21/2023 11:33 AM EDT 999 mL/hr ondansetron (PF) 8 mg injection (ZOFRAN) 8 mg, INTRAVENOUS, ONCE, 1 dose, On Sat02/21/23 at 1130 Given 02/21/2023 11:49 AM EDT 8 mg Inactive Administered Medications - up to 3 most recent administrations Medication Order MAR Action Action Date Dose Rate Site dexAMETHasone 10 mg/NS 50 mL (PYXIS) 10 mg ivpb (DECADRON) 10 mg, INTRAVENOUS, ONCE, 1 dose, On Sat03/05/23 at 1000, Refrigerate. New Bag/Syringe/Bottle 03/05/2023 10:11 AM EDT 10 mg fluorouracil (ADRUCIL) 4,820 mg in NaCl 0.9% 102 mL in empty bag 4,820 mg (2,000 mg/m2 2.41 m2 Treatment Plan BSA from Recorded weight), INTRAVENOUS, at 2.2 mL/hr, Administer over 46 Hours, ONCE, 1 dose, On Sat03/05/23 at 1000, EXP: 03/12/23 Hazardous Chemotherapy Drug: Use appropriate PPE. Protect from Light. Apheresis and/or Portable Pump 03/05/2023 12:50 PM EDT 4,820 mg 2.2 mL/hr leucovorin 964 mg in D5W 106.2 mL 964 mg (400 mg/m2 2.41 m2 Treatment Plan BSA from Recorded weight), INTRAVENOUS, Administer over 2 Hours, ONCE, 1 dose, On Sat03/05/23 at 1000, APPROXIMATE TOTAL VOLUME ml; PROTECT FROM LIGHT ADMINISTER CONCURRENTLY WITH OXALIPLATIN. REFRIGERATE New Bag/Syringe/Bottle 03/05/2023 10:41 AM EDT 964 mg oxaliplatin 144.6 mg in D5W 568.92 mL (ELOXATIN) 144.6 mg (60 mg/m2 2.41 m2 Treatment Plan BSA from Recorded weight), INTRAVENOUS, Administer over 2 Hours, ONCE, 1 dose, On Sat03/05/23 at 1000, Administer concurrently with leucovorin. Approx Total Volume EXP: 1600 03/05/23 Hazardous Chemotherapy Drug: Use appropriate PPE. Antineoplastic Irritant with Vesicant Potential. Flush line with D5W before and after administration. New Bag/Syringe/Bottle 03/05/2023 10:41 AM EDT 144.6 mg palonosetron 0.25 mg injection (ALOXI) 0.25 mg, INTRAVENOUS, ONCE, 1 dose, On Sat03/05/23 at 1000, Flush IV line with NS prior to and following administration. Given 03/05/2023 10:09 AM EDT 0.25 mg Inactive Administered Medications - up to 3 most recent administrations Medication Order MAR Action Action Date Dose Rate Site dexAMETHasone 10 mg/NS 50 mL (PYXIS) 10 mg ivpb (DECADRON) 10 mg, INTRAVENOUS, ONCE, 1 dose, On Sat03/19/23 at 0930, Refrigerate. New Bag/Syringe/Bottle 03/19/2023 9:44 AM EDT 10 mg fluorouracil (ADRUCIL) 4,780 mg in NaCl 0.9% 102 mL in empty bag 4,780 mg (2,000 mg/m2 2.39 m2 Treatment Plan BSA from Recorded weight), INTRAVENOUS, at 2.2 mL/hr, Administer over 46 Hours, ONCE, 1 dose, On Sat03/19/23 at 0930, EXP: 03/26/23 Hazardous Chemotherapy Drug: Use appropriate PPE. Protect from Light. Apheresis and/or Portable Pump 03/19/2023 12:21 PM EDT 4,780 mg 2.2 mL/hr leucovorin 956 mg in D5W 105.8 mL 956 mg (400 mg/m2 2.39 m2 Treatment Plan BSA from Recorded weight), INTRAVENOUS, Administer over 2 Hours, ONCE, 1 dose, On Sat03/19/23 at 0930, APPROXIMATE TOTAL VOLUME ml; PROTECT FROM LIGHT ADMINISTER CONCURRENTLY WITH OXALIPLATIN. REFRIGERATE New Bag/Syringe/Bottle 03/19/2023 10:16 AM EDT 956 mg oxaliplatin 143.4 mg in D5W 568.68 mL (ELOXATIN) 143.4 mg (60 mg/m2 2.39 m2 Treatment Plan BSA from Recorded weight), INTRAVENOUS, Administer over 2 Hours, ONCE, 1 dose, On Sat03/19/23 at 0930, Administer concurrently with leucovorin. Approx Total Volume: mL EXP: 1530 03/19/23 Hazardous Chemotherapy Drug: Use appropriate PPE. Antineoplastic Irritant with Vesicant Potential. Flush line with D5W before and after administration. New Bag/Syringe/Bottle 03/19/2023 10:16 AM EDT 143.4 mg palonosetron 0.25 mg injection (ALOXI) 0.25 mg, INTRAVENOUS, ONCE, 1 dose, On Sat03/19/23 at 0930, Flush IV line with NS prior to and following administration. Given 03/19/2023 9:42 AM EDT 0.25 mg Inactive Administered Medications - up to 3 most recent administrations Medication Order MAR Action Action Date Dose Rate Site dexAMETHasone 10 mg/NS 50 mL (PYXIS) 10 mg ivpb (DECADRON) 10 mg, INTRAVENOUS, ONCE, 1 dose, On Sat03/21/23 at 1100, Refrigerate. New Bag/Syringe/Bottle 03/21/2023 11:18 AM EDT 10 mg NaCl 0.9% 1,000 mL INTRAVENOUS, at 999 mL/hr, Administer over 1 Hours, ONCE, 1 dose, On Sat03/21/23 at 1100 New Bag/Syringe/Bottle 03/21/2023 10:54 AM EDT 999 mL/hr ondansetron (PF) 8 mg injection (ZOFRAN) 8 mg, INTRAVENOUS, ONCE, 1 dose, On Sat03/21/23 at 1100 Given 03/21/2023 11:15 AM EDT 8 mg Additional Source Comments (unrecognized sect ion and content) No Status Records FoundNo Status Records FoundNo Status Records FoundNo Status Records FoundNo Status Records FoundNo Status Records FoundNo Status Records FoundNo Status Records FoundNo Status Records Found INFORMATION SOURCE (unrecogn ized section and content) DATE CREATED AUTHOR 08/09/[address] [facility] DATE CREATED AUTHOR AUTHOR'S ORGANIZ ATION 09/27/2022 [facility] DATE CREATED AUTHOR AUTHOR'S ORGANIZ ATION 10/14/2022 [facility] DATE CREATED AUTHOR AUTHOR'S ORGANIZ ATION 04/19/2023 [facility] DATE CREATED AUTHOR AUTHOR'S ORGANIZ ATION 08/16/2023 [facility] DATE CREATED AUTHOR AUTHOR'S ORGANIZ ATION 10/12/2023 [facility] EPIC DATE CREATED AUTHOR AUTHOR'S ORGANIZ ATION 10/25/2023 [facility] DATE CREATED AUTHOR AUTHOR'S ORGANIZ ATION 11/06/2023 [facility] DATE CREATED AUTHOR AUTHOR'S ORGANIZ ATION 11/08/2023 [facility] Team (unrecognized sect ion and content) Team Status: Active Member Role Status Dates Lorenzo Olson DO Primary Care Provider Active Team Status: Inactive Member Role Status Dates Lorenzo Olson , Primary Care Provider Active JM Busby Attending Provider Active Pcu Rn Relationship Specialty Start Date End Date Lorenzo Olson DO PCP - General Family Medicine 04/16/13 Pcu Rn Relationship Specialty Start Date End Date Lorenzo Olson DO PCP - General Family Medicine 04/16/13 Pcu Rn Relationship Specialty Start Date End Date Lorenzo Olson DO PCP - General Family Medicine 04/16/13 Pcu Rn Relationship Specialty Start Date End Date Lorenzo Olson DO PCP - General Family Medicine 04/16/13 Pcu Rn Relationship Specialty Start Date End Date Lorenzo Olson DO PCP - General Family Medicine 04/16/13 Pcu Rn Relationship Specialty Start Date End Date Lorenzo Olson DO PCP - General Family Medicine 04/16/13 Pcu Rn Relationship Specialty Start Date End Date Lorenzo Olson DO PCP - General Family Medicine 04/16/13 Pcu Rn Relationship Specialty Start Date End Date Lorenzo Olson DO PCP - General Family Medicine 04/16/13 Pcu Rn Relationship Specialty Start Date End Date WhitneyLorenzoDO PCP - General Family Medicine 04/16/13 Pcu Rn Relationship Specialty Start Date End Date Whitney Lorenzo DaileyDO PCP - General Family Medicine 04/16/13 Pcu Rn Relationship Specialty Start Date End Date Lorenzo Olson DO PCP - General Family Medicine 04/16/13 Sera Forbes LSW Research Leader 09/26/22 Team Status: Inactive Member Role Status Dates Lorenzo Olson DO Primary Care Provider Active Nick Anderson MD Attending Provider Active Pcu Rn Relationship Specialty Start Date End Date WhitneyLorenzoDO PCP - General Family Medicine 04/16/13 Sera Forbes LSW Research Leader 09/26/22 Nick Anderson MD [address] [place] [address] Physician Hematology/Oncology 10/01/22 Dania Vásquez MD [address] [place] [address] Physician Radiation Oncology 10/01/22 Ryan Hollis APRN.[facility] [address] [place] [address] Nurse Practitioner Hematology/Oncology 10/01/22 Denisha Duarte, ALEXUS [address] [place] [address] Specialty Latex Thread Machine Operator Hematology/Oncology 10/01/22 Pcu Rn Relationship Specialty Start Date End Date Lorenzo Olson DO PCP - General Family Medicine 04/16/13 Sera Forbes LSW Research Leader 09/26/22 Nick Anderson MD [address] [place] [address] Physician Hematology/Oncology 10/01/22 Dania Vásquez MD [address] [place] [address] Physician Radiation Oncology 10/01/22 Ryan Hollis, RESEARCH GREENHOUSE SUPERVISOR.[facility] [address] [place] [address] Nurse Practitioner Hematology/Oncology 10/01/22 Denisha Duarte, ALEXUS [address] [place] [address] Specialty Latex Thread Machine Operator Hematology/Oncology 10/01/22 Pcu Rn Relationship Specialty Start Date End Date Lorenzo Olson DO PCP - General Family Medicine 04/16/13 Sera Forbes LSW Research Leader 09/26/22 Nick Anderson MD [address] [place] [address] Physician Hematology/Oncology 10/01/22 Dania Vásquez MD [address] [place] [address] Physician Radiation Oncology 10/01/22 Ryan Hollis, RESEARCH GREENHOUSE SUPERVISOR.[facility] [address] [place] [address] Nurse Practitioner Hematology/Oncology 10/01/22 Denisha Duarte, ALEXUS [address] [place] [address] Specialty Latex Thread Machine Operator Hematology/Oncology 10/01/22 Pcu Rn Relationship Specialty Start Date End Date Lorenzo Olson DO PCP - General Family Medicine 04/16/13 Sera Fobres LSW Research Leader 09/26/22 Nick Anderson MD [address] [place] [address] Physician Hematology/Oncology 10/01/22 Dania Vásquez MD [address] [place] [address] Physician Radiation Oncology 10/01/22 Ryan Hollis, RESEARCH GREENHOUSE SUPERVISOR.[employer] [address] [place] [address] Nurse Practitioner Hematology/Oncology 10/01/22 Denisha Duarte, ALEXUS [address] [place], [place] [id number] Specialty Latex Thread Machine Operator Hematology/Oncology 10/01/22 Pcu Rn Relationship Specialty Start Date End Date Lorenzo Olson DO PCP - General Family Medicine 04/16/13 Sera Forbes [facility] Research Leader 09/26/22 Nick Anderson MD [address] [place], [place] [id number] Physician Hematology/Oncology 10/01/22 Dania Vásquez MD [address] [place] [address] Physician Radiation Oncology 10/01/22 Ryan Hollis, RESEARCH GREENHOUSE SUPERVISOR.REMARKETING REP [address] [place] [address] Nurse Practitioner Hematology/Oncology 10/01/22 Denisha Duarte, ALEXUS [address] [place] [address] Specialty Latex Thread Machine Operator Hematology/Oncology 10/01/22 Pcu Rn Relationship Specialty Start Date End Date Lorenzo Olson DO PCP - General Family Medicine 04/16/13 Sera Forbes LSW Research Leader 09/26/22 Nick Anderson MD [address] [place], [place] [id number] Physician Hematology/Oncology 10/01/22 Dania Vásquez MD [address] [place], [place] [id number] Physician Radiation Oncology 10/01/22 Ryan Hollis, RESEARCH GREENHOUSE SUPERVISOR.REMARKETING REP [address] [place] [address] Nurse Practitioner Hematology/Oncology 10/01/22 Denisha Duarte, ALEXUS [address] [place] [address] Specialty Latex Thread Machine Operator Hematology/Oncology 10/01/22 Pcu Rn Relationship Specialty Start Date End Date Lorenzo Olson DO PCP - General Family Medicine 04/16/13 Sera Forbes LSW Research Leader 09/26/22 Nick Anderson MD [address] [place] [address] Physician Hematology/Oncology 10/01/22 Dania Vásquez MD [address] [place], [place] [id number] Physician Radiation Oncology 10/01/22 Ryan Hollis, RESEARCH GREENHOUSE SUPERVISOR.REMARKETING REP [address] [place] [address] Nurse Practitioner Hematology/Oncology 10/01/22 Denisha Duarte, RN [address] [place] [address] Specialty Latex Thread Machine Operator Hematology/Oncology 10/01/22 Pcu Rn Relationship Specialty Start Date End Date Lorenzo Olson DO PCP - General Family Medicine 04/16/13 Sera Forbes LSW Research Leader 09/26/22 Nick Anderson MD [address] [place], [place] [id number] Physician Hematology/Oncology 10/01/22 Dania Vásquez MD [address] [place] [address] Physician Radiation Oncology 10/01/22 Ryan Hollis, RESEARCH GREENHOUSE SUPERVISOR.REMARKETING REP [address] [place] [address] Nurse Practitioner Hematology/Oncology 10/01/22 Denisha Duarte, ALEXUS [address] [place] [address] Specialty Latex Thread Machine Operator Hematology/Oncology 10/01/22 Pcu Rn Relationship Specialty Start Date End Date Lorenzo Olson DO PCP - General Family Medicine 04/16/13 Sera Forbes LSW Research Leader 09/26/22 Nick Anderson MD [address] [place] [address] Physician Hematology/Oncology 10/01/22 Dania Vásquez MD [address] [place] [address] Physician Radiation Oncology 10/01/22 Ryan Hollis, RESEARCH GREENHOUSE SUPERVISOR.REMARKETING REP [address] [place] [address] Nurse Practitioner Hematology/Oncology 10/01/22 Denisha Duarte, ALEXUS [address] [place] [address] Specialty Latex Thread Machine Operator Hematology/Oncology 10/01/22 Pcu Rn Relationship Specialty Start Date End Date Lorenzo Olson DO PCP - General Family Medicine 04/16/13 Sera Forbes, DAI Research Leader 09/26/22 Nick Anderson MD [address] [place] [address] Physician Hematology/Oncology 10/01/22 Dania Vásquez MD [address] [facility] [address] Physician Radiation Oncology 10/01/22 Ryan Hollis, RESEARCH GREENHOUSE SUPERVISOR.REMARKETING REP [address] [place] [address] Nurse Practitioner Hematology/Oncology 10/01/22 Denisha Duarte, RN [address] [place], [place] [id number] Specialty Latex Thread Machine Operator Hematology/Oncology 10/01/22 Pcu Rn Relationship Specialty Start Date End Date Lorenzo Olson DO PCP - General Family Medicine 04/16/13 Sera Forbes, DEMURRAGE MAN Research Leader 09/26/22 Nick Anderson MD [address] [place] [address] Physician Hematology/Oncology 10/01/22 Dania Vásquez MD [address] [place] [address] Physician Radiation Oncology 10/01/22 Ryan Hollis, RESEARCH GREENHOUSE SUPERVISOR.REMARKETING REP [address] [place] [address] Nurse Practitioner Hematology/Oncology 10/01/22 Denisha Duarte, ALEXUS [address] [place] [address] Specialty Latex Thread Machine Operator Hematology/Oncology 10/01/22 Pcu Rn Relationship Specialty Start Date End Date Lorenzo Olson AsimDO PCP - General Family Medicine 04/16/13 Sear Forbes [facility] Research Leader 09/26/22 Nick Anderson MD [address] [place] [address] Physician Hematology/Oncology 10/01/22 Dania Vásquez MD [address] [place] [address] Physician Radiation Oncology 10/01/22 Ryan Hollis, RESEARCH GREENHOUSE SUPERVISOR.REMARKETING REP [address] [place] [address] Nurse Practitioner Hematology/Oncology 10/01/22 Denisha Duarte, ALEXUS [address] [place] [address] Specialty Latex Thread Machine Operator Hematology/Oncology 10/01/22 Pcu Rn Relationship Specialty Start Date End Date Lorenzo Olson DO PCP - General Family Medicine 04/16/13 Sera Forbes [facility] Research Leader 09/26/22 Nick Anderson MD [address] [place] [address] Physician Hematology/Oncology 10/01/22 Dania Vásquez MD [address] [facility] [place], [place] [address] Physician Radiation Oncology 10/01/22 Ryan Hollis, RESEARCH GREENHOUSE SUPERVISOR.REMARKETING REP [address] [place] [address] Nurse Practitioner Hematology/Oncology 10/01/22 Denisha Duarte, ALEXUS [address] [place] [address] Specialty Latex Thread Machine Operator Hematology/Oncology 10/01/22 Pcu Rn Relationship Specialty Start Date End Date Lorenzo Olson DO PCP - General Family Medicine 04/16/13 Sera Forbes, [facility] Research Leader 09/26/22 Nick Anderson MD [address] [place] [address] Physician Hematology/Oncology 10/01/22 Dania Vásquez MD [address] [place] [address] Physician Radiation Oncology 10/01/22 Ryan Hollis, RESEARCH GREENHOUSE SUPERVISOR.REMARKETING REP [address] [place] [address] Nurse Practitioner Hematology/Oncology 10/01/22 Denisha Duarte, ALEXUS [address] [place] [address] Specialty Latex Thread Machine Operator Hematology/Oncology 10/01/22 Pcu Rn Relationship Specialty Start Date End Date Lorenzo Olson DO PCP - General Family Medicine 04/16/13 Sera Forbes, [facility] Research Leader 09/26/22 Nick Anderson MD [address] [place] [address] Physician Hematology/Oncology 10/01/22 Dania Vásquez MD [address] [place] [address] Physician Radiation Oncology 10/01/22 Ryan Hollis, RESEARCH GREENHOUSE SUPERVISOR.REMARKETING REP [address] [place], [place] [phone] Nurse Practitioner Hematology/Oncology 10/01/22 Denisha Duarte, RN [address] [address] [place], [place] [id number] Specialty Latex Thread Machine Operator Hematology/Oncology 10/01/22 Pcu Rn Relationship Specialty Start Date End Date Lorenzo Olson DO PCP - General Family Medicine 04/16/13 Sera Forbes [facility] Research Leader 09/26/22 Nick Anderson MD [address] [place] [address] Physician Hematology/Oncology 10/01/22 Dania Vásquez MD [address] [place] [address] Physician Radiation Oncology 10/01/22 Ryan Hollis, RESEARCH GREENHOUSE SUPERVISOR.REMARKETING REP [address] [place] [address] Nurse Practitioner Hematology/Oncology 10/01/22 Denisha Duarte, RN [address] [place] [address] Specialty Latex Thread Machine Operator Hematology/Oncology 10/01/22 Pcu Rn Relationship Specialty Start Date End Date Lorenzo Olson DO PCP - General Family Medicine 04/16/13 Sera Forbes LSW Research Leader 09/26/22 Nick Anderson MD [address] [address] [address] [place], [place] [address] Physician Hematology/Oncology 10/01/22 Dania Vásquez MD [address] [place] [address] Physician Radiation Oncology 10/01/22 Ryan Hollis, RESEARCH GREENHOUSE SUPERVISOR.REMARKETING REP [address] [place] [address] Nurse Practitioner Hematology/Oncology 10/01/22 Denisha Duarte, RN [address] [place] [address] Specialty Latex Thread Machine Operator Hematology/Oncology 10/01/22 Pcu Rn Relationship Specialty Start Date End Date Lorenzo Olson DO PCP - General Family Medicine 04/16/13 Sera Forbes LSW Research Leader 09/26/22 Nick Anderson MD [address] [place] [address] Physician Hematology/Oncology 10/01/22 Dania Vásquez MD [address] [place] [address] Physician Radiation Oncology 10/01/22 Ryan Hollis, RESEARCH GREENHOUSE SUPERVISOR.REMARKETING REP [address] [place] [address] Nurse Practitioner Hematology/Oncology 10/01/22 Denisha Duarte, ALEXUS [address] [place] [address] Specialty Latex Thread Machine Operator Hematology/Oncology 10/01/22 Pcu Rn Relationship Specialty Start Date End Date Lorenzo Olson DO PCP - General Family Medicine 04/16/13 Sera Forbes LSW Research Leader 09/26/22 Nick Anderson MD [address] [place] [address] Physician Hematology/Oncology 10/01/22 Dania Vásquez MD [address] [place] [address] Physician Radiation Oncology 10/01/22 Ryan Hollis, RESEARCH GREENHOUSE SUPERVISOR.REMARKETING REP [address] [place] [address] Nurse Practitioner Hematology/Oncology 10/01/22 Denisha Duarte, ALEXUS [address] [address] [address] [place], [place] [address]70 Specialty Latex Thread Machine Operator Hematology/Oncology 10/01/22 Pcu Rn Relationship Specialty Start Date End Date Lorenzo Olson DO PCP - General Family Medicine 04/16/13 Sera Forbes LSW Research Leader 09/26/22 Nick Anderson MD [address] [facility] [place] [address] Physician Hematology/Oncology 10/01/22 Dania Vásquez MD [address] [place] [address] Physician Radiation Oncology 10/01/22 Ryan Hollis, RESEARCH GREENHOUSE SUPERVISOR.REMARKETING REP [address] [place] [address] Nurse Practitioner Hematology/Oncology 10/01/22 Denisha Duarte, ALEXUS [address] [place] [address] Specialty Latex Thread Machine Operator Hematology/Oncology 10/01/22 Pcu Rn Relationship Specialty Start Date End Date Lorenzo Olson DO PCP - General Family Medicine 04/16/13 Sera Forbes LSW Research Leader 09/26/22 Nick Anderson MD [address] [place] [address] Physician Hematology/Oncology 10/01/22 Dania Vásquez MD [address] [place] [address] Physician Radiation Oncology 10/01/22 Ryan Hollis, RESEARCH GREENHOUSE SUPERVISOR.REMARKETING REP [address] [place] [address] Nurse Practitioner Hematology/Oncology 10/01/22 Denisha Duarte, RN [address] [place] [address] Specialty Latex Thread Machine Operator Hematology/Oncology 10/01/22 Pcu Rn Relationship Specialty Start Date End Date Lorenzo Olson DO PCP - General Family Medicine 04/16/13 Sera Forbes LSW Research Leader 09/26/22 Nick Anderson MD [address] [place] [address] Physician Hematology/Oncology 10/01/22 Dania Vásquez MD [address] [place] [address] Physician Radiation Oncology 10/01/22 Ryan Hollis, RESEARCH GREENHOUSE SUPERVISOR.REMARKETING REP [address] [place] [address] Nurse Practitioner Hematology/Oncology 10/01/22 Denisha Duarte, RN [address] [place] [address] Specialty Latex Thread Machine Operator Hematology/Oncology 10/01/22 Pcu Rn Relationship Specialty Start Date End Date Lorenzo Olson DO PCP - General Family Medicine 04/16/13 Sera Forbes LSW Research Leader 09/26/22 Nick Anderson MD [address] [place] [address] Physician Hematology/Oncology 10/01/22 Dania Vásquez MD [address] [place] [address] Physician Radiation Oncology 10/01/22 Ryan Hollis, RESEARCH GREENHOUSE SUPERVISOR.[facility] [address] [place] [address] Nurse Practitioner Hematology/Oncology 10/01/22 Denisha Duarte, ALEXUS [address] [place] [address] Specialty Latex Thread Machine Operator Hematology/Oncology 10/01/22 Pcu Rn Relationship Specialty Start Date End Date Lorenzo Olson DO PCP - General Family Medicine 04/16/13 Sera Forbes LSW Research Leader 09/26/22 Nick Anderson MD [address] [place] [address] Physician Hematology/Oncology 10/01/22 Dania Vásquez MD [address] [place] [address] Physician Radiation Oncology 10/01/22 Ryan Hollis, RESEARCH GREENHOUSE SUPERVISOR.[facility] [address] [place] [address] Nurse Practitioner Hematology/Oncology 10/01/22 Denisha Duarte, ALEXUS [address] [place] [address] Specialty Latex Thread Machine Operator Hematology/Oncology 10/01/22 Pcu Rn Relationship Specialty Start Date End Date Lorenzo Olson DO PCP - General Family Medicine 04/16/13 Sera Forbes, [facility] Research Leader 09/26/22 Nick Anderson MD [address] [place] [address] Physician Hematology/Oncology 10/01/22 Dania Vásquez MD [address] [place] [address] Physician Radiation Oncology 10/01/22 Ryan Hollis, RESEARCH GREENHOUSE SUPERVISOR.REMARKETING REP [address] [place] [address] Nurse Practitioner Hematology/Oncology 10/01/22 Denisha Duarte, ALEXUS [address] [address] [address] [place], [place] [address] Specialty Latex Thread Machine Operator Hematology/Oncology 10/01/22 Pcu Rn Relationship Specialty Start Date End Date Lorenzo Olson DO PCP - General Family Medicine 04/16/13 Sera Forbes [facility] Research Leader 09/26/22 Nick Anderson MD [address] [place] [address] Physician Hematology/Oncology 10/01/22 Dania Vásquez MD [address] [place] [address] Physician Radiation Oncology 10/01/22 Ryan Hollis, RESEARCH GREENHOUSE SUPERVISOR.REMARKETING REP [address] [place] [address] Nurse Practitioner Hematology/Oncology 10/01/22 Denisha Duarte, RN [address] [place] [address] Specialty Latex Thread Machine Operator Hematology/Oncology 10/01/22 Pcu Rn Relationship Specialty Start Date End Date Lorenzo Olson DO PCP - General Family Medicine 04/16/13 Sera Forbes LSW Research Leader 09/26/22 Nick Anderson MD [address] [address] [facility] [address] [place], [place] [address] Physician Hematology/Oncology 10/01/22 Dania Vásquez MD [address] [address] [facility] [address] [place], [place] [address] Physician Radiation Oncology 10/01/22 Ryan Hollis, RESEARCH GREENHOUSE SUPERVISOR.REMARKETING REP [address] [place] [address] Nurse Practitioner Hematology/Oncology 10/01/22 Denisha Duarte, ALEXUS [address] [place] [address] Specialty Latex Thread Machine Operator Hematology/Oncology 10/01/22 Pcu Rn Relationship Specialty Start Date End Date Whitney Lorenzo Dailey DO PCP - General Family Medicine 04/16/13 Sera Forbes LSW Research Leader 09/26/22 Nick Anderson MD [address] [place] [address] Physician Hematology/Oncology 10/01/22 Dania Vásquez MD [address] [address] [address] [place], [place] [address] Physician Radiation Oncology 10/01/22 Ryan Hollis, AZAEL.REMARKETING REP [address] [place] [address] Nurse Practitioner Hematology/Oncology 10/01/22 Denisha Duarte, RN [address] [place] [address] Specialty Latex Thread Machine Operator Hematology/Oncology 10/01/22 Pcu Rn Relationship Specialty Start Date End Date Lorenzo Olson DO PCP - General Family Medicine 04/16/13 Sera Forbes, [facility] Research Leader 09/26/22 Nick Anderson MD [address] [facility] [address] [place], [place] [address] Physician Hematology/Oncology 10/01/22 Dania Vásquez MD [address] [place] [address] Physician Radiation Oncology 10/01/22 Ryan Hollis, RESEARCH GREENHOUSE SUPERVISOR.REMARKETING REP [address] [place] [address] Nurse Practitioner Hematology/Oncology 10/01/22 Denisha Duarte RN [address] [place] [address] Specialty Latex Thread Machine Operator Hematology/Oncology 10/01/22 Pcu Rn Relationship Specialty Start Date End Date Lorenzo Olson DO PCP - General Family Medicine 04/16/13 Sera Forbes [facility] Research Leader 09/26/22 Nick Anderson MD [address] [address] [place], [place] [address] Physician Hematology/Oncology 10/01/22 Dania Vásquez MD [address] [place] [address] Physician Radiation Oncology 10/01/22 Ryan Hollis, RESEARCH GREENHOUSE SUPERVISOR.REMARKETING REP [address] [place] [address] Nurse Practitioner Hematology/Oncology 10/01/22 Denisha Duarte, ALEXUS [address] [place] [address] Specialty Latex Thread Machine Operator Hematology/Oncology 10/01/22 Pcu Rn Relationship Specialty Start Date End Date Lorenzo Olson DO PCP - General Family Medicine 04/16/13 Sera Forbes, [facility] Research Leader 09/26/22 Nick Anderson MD [address] [place] [address] Physician Hematology/Oncology 10/01/22 Dania Vásquez MD [address] [place] [address] Physician Radiation Oncology 10/01/22 Ryan Hollis, RESEARCH GREENHOUSE SUPERVISOR.REMARKETING REP [address] [place] [address] Nurse Practitioner Hematology/Oncology 10/01/22 Denisha Duarte, RN [address] [place] [address] Specialty Latex Thread Machine Operator Hematology/Oncology 10/01/22 Pcu Rn Relationship Specialty Start Date End Date Lorenzo Olson DO PCP - General Family Medicine 04/16/13 Sera Forbes, [employer] Research Leader 09/26/22 Nick Anderson MD [address] [facility] [place] [address] Physician Hematology/Oncology 10/01/22 Dania Vásquez MD [address] [place] [address] Physician Radiation Oncology 10/01/22 Ryan Hollis, RESEARCH GREENHOUSE SUPERVISOR.REMARKETING REP [address] [place] [address] Nurse Practitioner Hematology/Oncology 10/01/22 Denisha Duarte, ALEXUS [address] [place] [address] Specialty Latex Thread Machine Operator Hematology/Oncology 10/01/22 Pcu Rn Relationship Specialty Start Date End Date Lorenzo Olson DO PCP - General Family Medicine 04/16/13 Sera Forbes [facility] Research Leader 09/26/22 Nick Anderson MD [address] [place] [address] Physician Hematology/Oncology 10/01/22 Dania Vásquez MD [address] [place] [address] Physician Radiation Oncology 10/01/22 Ryan Hollis, RESEARCH GREENHOUSE SUPERVISOR.REMARKETING REP [address] [place] [address] Nurse Practitioner Hematology/Oncology 10/01/22 Denisha Duarte, ALEXUS [address] [place] [address] Specialty Latex Thread Machine Operator Hematology/Oncology 10/01/22 Pcu Rn Relationship Specialty Start Date End Date Lorenzo Olson DO PCP - General Family Medicine 04/16/13 Sera Forbes [facility] Research Leader 09/26/22 Nick Anderson MD [address] [place] [address] Physician Hematology/Oncology 10/01/22 Dania Vásquez MD [address] [address] [address] [place], [place] [address] Physician Radiation Oncology 10/01/22 Ryan Hollis, RESEARCH GREENHOUSE SUPERVISOR.REMARKETING REP [address] [address] [address] [place], [place] [id number] Nurse Practitioner Hematology/Oncology 10/01/22 Denisha Duarte, ALEXUS [address] [place] [address] Specialty Latex Thread Machine Operator Hematology/Oncology 10/01/22 Pcu Rn Relationship Specialty Start Date End Date Lorenzo Olson DO PCP - General Family Medicine 04/16/13 Sera Forbes, [facility] Research Leader 09/26/22 Nick Anderson MD [address] [place] [address] Physician Hematology/Oncology 10/01/22 Dania Vásquez MD [address] [place] [address] Physician Radiation Oncology 10/01/22 Ryan Hollis, RESEARCH GREENHOUSE SUPERVISOR.REMARKETING REP [address] [address] [address] [place], [place] [phone] Nurse Practitioner Hematology/Oncology 10/01/22 Denisha Duarte, ALEXUS [address] [address] [place], [place] [address] Specialty Latex Thread Machine Operator Hematology/Oncology 10/01/22 Pcu Rn Relationship Specialty Start Date End Date Lorenzo Olson DO PCP - General Family Medicine 04/16/13 Sera Forbes, [facility] Research Leader 09/26/22 Nick Anderson MD [address] [place] [address] Physician Hematology/Oncology 10/01/22 Dania Vásquez MD [address] [place] [address] Physician Radiation Oncology 10/01/22 Ryan Hollis, RESEARCH GREENHOUSE SUPERVISOR.REMARKETING REP [address] [place] [address] Nurse Practitioner Hematology/Oncology 10/01/22 Denisha Duarte, RN [address] [place] [address] Specialty Latex Thread Machine Operator Hematology/Oncology 10/01/22 Pcu Rn Relationship Specialty Start Date End Date Lorenzo Olson DO PCP - General Family Medicine 04/16/13 Sera Forbes LSW Research Leader 09/26/22 Nick Anderson MD [address] [place] [address] Physician Hematology/Oncology 10/01/22 Dania Vásquez MD [address] [place] [address] Physician Radiation Oncology 10/01/22 Ryan Hollis, RESEARCH GREENHOUSE SUPERVISOR.REMARKETING REP [address] [place] [address] Nurse Practitioner Hematology/Oncology 10/01/22 Denisha Duarte, RN [address] [place] [address] Specialty Latex Thread Machine Operator Hematology/Oncology 10/01/22 Pcu Rn Relationship Specialty Start Date End Date Lorenzo Olson DO PCP - General Family Medicine 04/16/13 Sera Forbes LSW Research Leader 09/26/22 Nick Anderson MD [address] [address] [facility] [address] [place], [place] [address] Physician Hematology/Oncology 10/01/22 Dania Vásquez MD [address] [place] [address] Physician Radiation Oncology 10/01/22 Ryan Hollis, RESEARCH GREENHOUSE SUPERVISOR.REMARKETING REP [address] [place] [address] Nurse Practitioner Hematology/Oncology 10/01/22 Denisha Duarte, ALEXUS [address] [place] [address] Specialty Latex Thread Machine Operator Hematology/Oncology 10/01/22 Chelsie Ríos, RN Specialty Latex Thread Machine Operator Colon and Rectal Surgery 02/18/23 02/19/28 Pcu Rn Relationship Specialty Start Date End Date Lorenzo Olson DO PCP - General Family Medicine 04/16/13 Sera Forbes, DAI Research Leader 09/26/22 Nick Anderson MD [address] [place] [address] Physician Hematology/Oncology 10/01/22 Dania Vásquez MD [address] [place] [address] Physician Radiation Oncology 10/01/22 Ryan Hollis, RESEARCH GREENHOUSE SUPERVISOR.REMARKETING REP [address] [place] [address] Nurse Practitioner Hematology/Oncology 10/01/22 Denisha Duarte, RN [address] [place] [address] Specialty Latex Thread Machine Operator Hematology/Oncology 10/01/22 Chelsie Ríos, RN Specialty Latex Thread Machine Operator Colon and Rectal Surgery 02/18/23 02/19/28 Pcu Rn Relationship Specialty Start Date End Date Lorenzo Olson DO PCP - General Family Medicine 04/16/13 Sera Forbes LSW Research Leader 09/26/22 Nick Anderson MD [address] [facility] [place] [address] Physician Hematology/Oncology 10/01/22 Dania Vásquez MD [address] [facility] [place] [address] Physician Radiation Oncology 10/01/22 Ryan Hollis, RESEARCH GREENHOUSE SUPERVISOR.REMARKETING REP [address] [place] [address] Nurse Practitioner Hematology/Oncology 10/01/22 Denisha uDarte, ALEXUS [address] [facility] [place] [address] Specialty Latex Thread Machine Operator Hematology/Oncology 10/01/22 Chelsie Ríos, RN Specialty Latex Thread Machine Operator Colon and Rectal Surgery 02/18/23 02/19/28 Pcu Rn Relationship Specialty Start Date End Date Lorenzo Olson DO PCP - General Family Medicine 04/16/13 Sera Forbes LSW Research Leader 09/26/22 Nick Anderson MD [address] [facility] [place] [address] Physician Hematology/Oncology 10/01/22 Dania Vásquez MD [address] [facility] [place] [address] Physician Radiation Oncology 10/01/22 Ryan Hollis, RESEARCH GREENHOUSE SUPERVISOR.REMARKETING REP [address] [facility] [place] [address] Nurse Practitioner Hematology/Oncology 10/01/22 Denisha Duarte, RN [address] [facility] [place] [address] Specialty Latex Thread Machine Operator Hematology/Oncology 10/01/22 Chelsie Ríos, RN Specialty Latex Thread Machine Operator Colon and Rectal Surgery 02/18/23 02/19/28 Pcu Rn Relationship Specialty Start Date End Date Whitney Lorenzo DaileyDO PCP - General Family Medicine 04/16/13 Sera Forbes LSW Research Leader 09/26/22 Nick Anderson MD [address] [facility] [address] [place], [place] [address] Physician Hematology/Oncology 10/01/22 Dania Vásquez MD [address] [facility] [address] [place], [place] [address] Physician Radiation Oncology 10/01/22 Ryan Hollis, RESEARCH GREENHOUSE SUPERVISOR.REMARKETING REP [address] [facility] [place] [address] Nurse Practitioner Hematology/Oncology 10/01/22 Denisha Duarte, ALEXUS [address] [place] [address] [place] [address] Specialty Latex Thread Machine Operator Hematology/Oncology 10/01/22 Chelsie Ríos, RN Specialty Latex Thread Machine Operator Colon and Rectal Surgery 02/18/23 02/19/28 Pcu Rn Relationship Specialty Start Date End Date Whitney Lorenzo DaileyDO PCP - General Family Medicine 04/16/13 Sera Forbes [employer] Research Leader 09/26/22 Nick Anderson MD [address] [facility] [address] [place], [place] [address] Physician Hematology/Oncology 10/01/22 Dania Vásquez MD [address] [facility] [address] [place], [place] [address] Physician Radiation Oncology 10/01/22 Ryan Hollis, RESEARCH GREENHOUSE SUPERVISOR.REMARKETING REP [address] [facility] [place] [address] Nurse Practitioner Hematology/Oncology 10/01/22 Denisha Duarte, ALEXUS [address] [facility] [address] [place], [place] [address]70 Specialty Latex Thread Machine Operator Hematology/Oncology 10/01/22 Chelsie Ríos, RN Specialty Latex Thread Machine Operator Colon and Rectal Surgery 02/18/23 02/19/28 Pcu Rn Relationship Specialty Start Date End Date Lorenzo Olson DO PCP - General Family Medicine 04/16/13 Sera Forbes LSW Research Leader 09/26/22 Nick Anderson MD [address] [facility] [address] [place], [place] [address] Physician Hematology/Oncology 10/01/22 Dania Vásquez MD [address] [facility] [place] [address] Physician Radiation Oncology 10/01/22 Ryan Hollis, RESEARCH GREENHOUSE SUPERVISOR.REMARKETING REP [address] [facility] [place] [address] Nurse Practitioner Hematology/Oncology 10/01/22 Denisha Duarte, ALEXUS [address] [facility] [place] [address] Specialty Latex Thread Machine Operator Hematology/Oncology 10/01/22 Chelsie Ríos, RN Specialty Latex Thread Machine Operator Colon and Rectal Surgery 02/18/23 02/19/28 Pcu Rn Relationship Specialty Start Date End Date Lorenzo Olson DO PCP - General Family Medicine 04/16/13 Sera Forbes LSW Research Leader 09/26/22 Nick Anderson MD [address] [facility] [place] [address] Physician Hematology/Oncology 10/01/22 Dania Vásquez MD [address] [facility] [place] [address] Physician Radiation Oncology 10/01/22 Ryan Hollis, RESEARCH GREENHOUSE SUPERVISOR.REMARKETING REP [address] [facility] [place] [address] Nurse Practitioner Hematology/Oncology 10/01/22 Denisha Duarte, ALEXUS [address] [facility] [place] [address] Specialty Latex Thread Machine Operator Hematology/Oncology 10/01/22 Chelsie Ríos, RN Specialty Latex Thread Machine Operator Colon and Rectal Surgery 02/18/23 02/19/28 Pcu Rn Relationship Specialty Start Date End Date Lorenzo Olson DO PCP - General Family Medicine 04/16/13 Sera Forbes LSW Research Leader 09/26/22 Nick Anderson MD [address] [facility] [place] [address] Physician Hematology/Oncology 10/01/22 Dania Vásquez MD [address] [facility] [place] [address] Physician Radiation Oncology 10/01/22 Ryan Hollis, RESEARCH GREENHOUSE SUPERVISOR.REMARKETING REP [address] [facility] [place] [address] Nurse Practitioner Hematology/Oncology 10/01/22 Denisha Duarte, RN [address] [facility] [place] [address] Specialty Latex Thread Machine Operator Hematology/Oncology 10/01/22 Chelsie Ríos, RN Specialty Latex Thread Machine Operator Colon and Rectal Surgery 02/18/23 02/19/28 Pcu Rn Relationship Specialty Start Date End Date Lorenzo Olson DO PCP - General Family Medicine 04/16/13 Sera Forbes LSW Research Leader 09/26/22 Nick Anderson MD [address] [facility] [address] [facility] [address] [place], [place] [id number] Physician Hematology/Oncology 10/01/22 Dania Vásquez MD [address] [facility] [address] [facility] [address] [place], [place] [id number] Physician Radiation Oncology 10/01/22 Ryan Hollis, RESEARCH GREENHOUSE SUPERVISOR.REMARKETING REP [address] [facility] [place] [address] Nurse Practitioner Hematology/Oncology 10/01/22 Denisha Duarte, ALEXUS [address] [place] [address] [place] [address] Specialty Latex Thread Machine Operator Hematology/Oncology 10/01/22 Chelsie Ríos, RN Specialty Latex Thread Machine Operator Colon and Rectal Surgery 02/18/23 02/19/28 Pcu Rn Relationship Specialty Start Date End Date Lorenzo Olson DO PCP - General Family Medicine 04/16/13 Sera Forbes LSW Research Leader 09/26/22 Nick Anderson MD [address] [facility] [place] [address] Physician Hematology/Oncology 10/01/22 Dania Vásquez MD [address] [facility] [place] [address] Physician Radiation Oncology 10/01/22 Ryan Hollis, RESEARCH GREENHOUSE SUPERVISOR.REMARKETING REP [address] [facility] [place] [address] Nurse Practitioner Hematology/Oncology 10/01/22 Denisha Duarte, RN [address] [facility] [place] [address] Specialty Latex Thread Machine Operator Hematology/Oncology 10/01/22 Chelsie Ríos, RN Specialty Latex Thread Machine Operator Colon and Rectal Surgery 02/18/23 02/19/28 Pcu Rn Relationship Specialty Start Date End Date Whitney Lorenzo DaileyDO PCP - General Family Medicine 04/16/13 Sera Forbes LSW Research Leader 09/26/22 Nick Anderson MD [address] [facility] [address] [place], [place] [id number] Physician Hematology/Oncology 10/01/22 Dania Vásquez MD [address] [facility] [place] [address] Physician Radiation Oncology 10/01/22 Ryan Hollis, RESEARCH GREENHOUSE SUPERVISOR.REMARKETING REP [address] [facility] [place] [address] Nurse Practitioner Hematology/Oncology 10/01/22 Denisha Duarte, ALEXUS [address] [facility] [place] [address] Specialty Latex Thread Machine Operator Hematology/Oncology 10/01/22 Chelsie Ríos, RN Specialty Latex Thread Machine Operator Colon and Rectal Surgery 02/18/23 02/19/28 Pcu Rn Relationship Specialty Start Date End Date Lorenzo OlsonDO PCP - General Family Medicine 04/16/13 Sera Forbes LSW Research Leader 09/26/22 Nick Anderson MD [address] [facility] [place] [address] Physician Hematology/Oncology 10/01/22 Dania Vásquez MD [address] [facility] [place] [address] Physician Radiation Oncology 10/01/22 Ryan Hollis, RESEARCH GREENHOUSE SUPERVISOR.REMARKETING REP [address] [facility] [place] [address] Nurse Practitioner Hematology/Oncology 10/01/22 Denisha Duarte, ALEXUS [address] [facility] [place] [address] Specialty Latex Thread Machine Operator Hematology/Oncology 10/01/22 Chelsie Ríos, RN Specialty Latex Thread Machine Operator Colon and Rectal Surgery 02/18/23 02/19/28 Pcu Rn Relationship Specialty Start Date End Date Lorenzo Olson DO PCP - General Family Medicine 04/16/13 Sera Forbes LSW Research Leader 09/26/22 Nick Anderson MD [address] [facility] [address] [place], [place] [id number] Physician Hematology/Oncology 10/01/22 Dania Vásquez MD [address] [facility] [place] [address] Physician Radiation Oncology 10/01/22 Ryan Hollis, RESEARCH GREENHOUSE SUPERVISOR.[facility] [address] [place] [address] Nurse Practitioner Hematology/Oncology 10/01/22 Denisha Duarte, ALEXUS [address] [facility] [place] [address] Specialty Latex Thread Machine Operator Hematology/Oncology 10/01/22 Chelsie Ríos, RN Specialty Latex Thread Machine Operator Colon and Rectal Surgery 02/18/23 02/19/28 Pcu Rn Relationship Specialty Start Date End Date Lorenzo Olson DO PCP - General Family Medicine 04/16/13 Sera Forbes LSW Research Leader 09/26/22 Nick Anderson MD [address] [place] [address] [place] [address] Physician Hematology/Oncology 10/01/22 Dania Vásquez MD [address] [place] [address] [place] [address] Physician Radiation Oncology 10/01/22 Ryan Hollis APRN.REMARKETING REP [address] [place] [address] [place] [address] Nurse Practitioner Hematology/Oncology 10/01/22 Denisha Duarte, ALEXUS [address] [facility] [place] [address] Specialty Latex Thread Machine Operator Hematology/Oncology 10/01/22 Chelsie Ríos, RN Specialty Latex Thread Machine Operator Colon and Rectal Surgery 02/18/23 02/19/28 Pcu Rn Relationship Specialty Start Date End Date Lorenzo Olson DO PCP - General Family Medicine 04/16/13 Sera Forbes LSW Research Leader 09/26/22 Nick Anderson MD [address] [place] [address] [place] [address] Physician Hematology/Oncology 10/01/22 Dania Vásquez MD [address] [place] [address] [place] [address] Physician Radiation Oncology 10/01/22 Ryan Hollis, RESEARCH GREENHOUSE SUPERVISOR.REMARKETING REP [address] [place] [address] [place] [address] Nurse Practitioner Hematology/Oncology 10/01/22 Denisha Duarte, ALEXUS [address] [facility] [place] [address] Specialty Latex Thread Machine Operator Hematology/Oncology 10/01/22 Chelsie Ríos RN Specialty Latex Thread Machine Operator Colon and Rectal Surgery 02/18/23 02/19/28 Pcu Rn Relationship Specialty Start Date End Date Lorenzo Olson DO PCP - General Family Medicine 04/16/13 Sera Forbes LSW Research Leader 09/26/22 Nick Anderson MD [address] [facility] [address] [place], [place] [id number] Physician Hematology/Oncology 10/01/22 Dania Vásquez MD [address] [facility] [place] [address] Physician Radiation Oncology 10/01/22 Ryan Hollis, AZAEL.REMARKETING REP [address] [facility] [address] [place], [place] [address] Nurse Practitioner Hematology/Oncology 10/01/22 Denisha Duarte, ALEXUS [address] [facility] [address] [place], [place] [address]70 Specialty Latex Thread Machine Operator Hematology/Oncology 10/01/22 Chelsie Ríos, ALEXUS Specialty Latex Thread Machine Operator Colon and Rectal Surgery 02/18/23 02/19/28 Pcu Rn Relationship Specialty Start Date End Date Lorenzo Olson DO PCP - General Family Medicine 04/16/13 Sera Forbes [employer] Research Leader 09/26/22 Nick Anderson MD [address] [facility] [place] [address] Physician Hematology/Oncology 10/01/22 Dania Vásquez MD [address] [facility] [place] [address] Physician Radiation Oncology 10/01/22 Ryan Hollis, RESEARCH GREENHOUSE SUPERVISOR.REMARKETING REP [address] [place] [address] [place] [address] Nurse Practitioner Hematology/Oncology 10/01/22 Denisha Duarte, ALEXUS [address] [facility] [place] [address] Specialty Latex Thread Machine Operator Hematology/Oncology 10/01/22 Chelsie Ríos, RN Specialty Latex Thread Machine Operator Colon and Rectal Surgery 02/18/23 02/19/28 Pcu Rn Relationship Specialty Start Date End Date Lorenzo Olson DO PCP - General Family Medicine 04/16/13 Sera Forbes LSW Research Leader 09/26/22 Nick Anderson MD [address] [place] [address] [place] [address] Physician Hematology/Oncology 10/01/22 Dania Vásquez MD [address] [place] [address] [place] [address] Physician Radiation Oncology 10/01/22 Ryan Hollis, RESEARCH GREENHOUSE SUPERVISOR.REMARKETING REP [address] [place] [address] [place] [address] Nurse Practitioner Hematology/Oncology 10/01/22 Denisha Duarte, ALEXUS [address] [facility] [place] [address] Specialty Latex Thread Machine Operator Hematology/Oncology 10/01/22 Chelsie Ríos, RN Specialty Latex Thread Machine Operator Colon and Rectal Surgery 02/18/23 02/19/28 Pcu Rn Relationship Specialty Start Date End Date Lorenzo Olson DO PCP - General Family Medicine 04/16/13 Sera Forbes LSW Research Leader 09/26/22 Nick Anderson MD [address] [facility] [place] [address] Physician Hematology/Oncology 10/01/22 Dania Vásquez MD [address] [facility] [place] [address] Physician Radiation Oncology 10/01/22 Ryan Hollis, RESEARCH GREENHOUSE SUPERVISOR.REMARKETING REP [address] [facility] [place] [address] Nurse Practitioner Hematology/Oncology 10/01/22 Denisha Duarte, ALEXUS [address] [facility] [place] [address] Specialty Latex Thread Machine Operator Hematology/Oncology 10/01/22 Chelsie Ríos RN Specialty Latex Thread Machine Operator Colon and Rectal Surgery 02/18/23 02/19/28 Pcu Rn Relationship Specialty Start Date End Date Lorenzo Olson DO PCP - General Family Medicine 04/16/13 Sera Forbes [facility] Research Leader 09/26/22 Nick Anderson MD [address] [facility] [place] [address] Physician Hematology/Oncology 10/01/22 Dania Vásquez MD [address] [facility] [place] [address] Physician Radiation Oncology 10/01/22 Ryan Hollis, RESEARCH GREENHOUSE SUPERVISOR.REMARKETING REP [address] [facility] [place] [address] Nurse Practitioner Hematology/Oncology 10/01/22 Denisha Duarte, ALEXUS [address] [facility] [place] [address] Specialty Latex Thread Machine Operator Hematology/Oncology 10/01/22 Chelsie Ríos, RN Specialty Latex Thread Machine Operator Colon and Rectal Surgery 02/18/23 02/19/28 Pcu Rn Relationship Specialty Start Date End Date Lorenzo Olson DO PCP - General Family Medicine 04/16/13 Sera Forbes, [facility] Research Leader 09/26/22 Nick Anderson MD [address] [facility] [place] [address] Physician Hematology/Oncology 10/01/22 Dania Vásquez MD [address] [facility] [place] [address] Physician Radiation Oncology 10/01/22 Ryan Hollis APRN.REMARKETING REP [address] [facility] [place] [address] Nurse Practitioner Hematology/Oncology 10/01/22 Denisha Duarte, ALEXUS [address] [facility] [place] [address] Specialty Latex Thread Machine Operator Hematology/Oncology 10/01/22 Chelsie Ríos, RN Specialty Latex Thread Machine Operator Colon and Rectal Surgery 02/18/23 02/19/28 Pcu Rn Relationship Specialty Start Date End Date Lorenzo Olson DO PCP - General Family Medicine 04/16/13 Sera Forbes, [facility] Research Leader 09/26/22 Nick Anderson MD [address] [facility] [place] [address] Physician Hematology/Oncology 10/01/22 Dania Vásquez MD [address] [facility] [place] [address] Physician Radiation Oncology 10/01/22 Ryan Hollis APRN.REMARKETING REP [address] [facility] [place] [address] Nurse Practitioner Hematology/Oncology 10/01/22 Denisha Duarte, ALEXUS [address] [facility] [place] [address] Specialty Latex Thread Machine Operator Hematology/Oncology 10/01/22 Chelsie Ríos RN Specialty Latex Thread Machine Operator Colon and Rectal Surgery 02/18/23 02/19/28 Pcu Rn Relationship Specialty Start Date End Date Lorenzo Olson DO PCP - General Family Medicine 04/16/13 Sera Frobes LSW Research Leader 09/26/22 Nick Anderson MD [address] [place] [address] [place] [address] Physician Hematology/Oncology 10/01/22 Dania Vásquez MD [address] [place] [address] [place] [address] Physician Radiation Oncology 10/01/22 Ryan Hollis, AZAEL.REMARKETING REP [address] [facility] [place] [address] Nurse Practitioner Hematology/Oncology 10/01/22 Denisha Duarte, ALEXUS [address] [facility] [place] [address] Specialty Latex Thread Machine Operator Hematology/Oncology 10/01/22 Ríos, Chelsie M, RN Specialty Latex Thread Machine Operator Colon and Rectal Surgery 02/18/23 02/19/28 Pcu Rn Relationship Specialty Start Date End Date Lorenzo Olson DO PCP - General Family Medicine 04/16/13 Sera Forbes LSW Research Leader 09/26/22 Nick Anderson MD [address] [facility] [place] [address] Physician Hematology/Oncology 10/01/22 Dania Vásquez MD [address] [place] [address] [place] [address] Physician Radiation Oncology 10/01/22 Ryan Hollis APRN.REMARKETING REP [address] [facility] [place] [address] Nurse Practitioner Hematology/Oncology 10/01/22 Denisha Duarte, ALEXUS [address] [facility] [place] [address] Specialty Latex Thread Machine Operator Hematology/Oncology 10/01/22 Chelsie Ríos, RN Specialty Latex Thread Machine Operator Colon and Rectal Surgery 02/18/23 02/19/28 Pcu Rn Relationship Specialty Start Date End Date Lorenzo Olson DO PCP - General Family Medicine 04/16/13 Sera Forbes LSW Research Leader 09/26/22 Nick Anderson MD [address] [facility] [place] [address] Physician Hematology/Oncology 10/01/22 Dania Vásquez MD [address] [facility] [place] [address] Physician Radiation Oncology 10/01/22 Ryan Hollis, RESEARCH GREENHOUSE SUPERVISOR.REMARKETING REP [address] [place] [address] [place] [address] Nurse Practitioner Hematology/Oncology 10/01/22 Denisha Duarte, ALEXUS [address] [facility] [place] [address] Specialty Latex Thread Machine Operator Hematology/Oncology 10/01/22 Chelsie Ríos, RN Specialty Latex Thread Machine Operator Colon and Rectal Surgery 02/18/23 02/19/28 Pcu Rn Relationship Specialty Start Date End Date Lorenzo Olson DO PCP - General Family Medicine 04/16/13 Sera Forbes LSW Research Leader 09/26/22 Nick Anderson MD [address] [place] [address] [place] [address] Physician Hematology/Oncology 10/01/22 Dania Vásquez MD [address] [place] [address] [place] [address] Physician Radiation Oncology 10/01/22 Ryan Hollis, RESEARCH GREENHOUSE SUPERVISOR.REMARKETING REP [address] [place] [address] [place] [address] Nurse Practitioner Hematology/Oncology 10/01/22 Denisha Duarte, ALEXUS [address] [facility] [place] [address] Specialty Latex Thread Machine Operator Hematology/Oncology 10/01/22 Chelsie Ríos, RN Specialty Latex Thread Machine Operator Colon and Rectal Surgery 02/18/23 02/19/28 Pcu Rn Relationship Specialty Start Date End Date Lorenzo Olson DO PCP - General Family Medicine 04/16/13 Sera Forbes LSW Research Leader 09/26/22 Nick Anderson MD [address] [place] [address] [place] [address] Physician Hematology/Oncology 10/01/22 Dania Vásquez MD [address] [place] [address] [place] [address] Physician Radiation Oncology 10/01/22 Ryan Hollis, RESEARCH GREENHOUSE SUPERVISOR.REMARKETING REP [address] [place] [address] [place] [address] Nurse Practitioner Hematology/Oncology 10/01/22 Denisha Duarte, ALEXUS [address] [place] [address] [place] [address] Specialty Latex Thread Machine Operator Hematology/Oncology 10/01/22 Chelsie Ríos, ALEXUS Specialty Latex Thread Machine Operator Colon and Rectal Surgery 02/18/23 02/19/28 Pcu Rn Relationship Specialty Start Date End Date Lorenzo Olson DO PCP - General Family Medicine 04/16/13 Sera Forbes LSW Research Leader 09/26/22 Nick Anderson MD [address] [place] [address] [place] [address] Physician Hematology/Oncology 10/01/22 Dania Vásquez MD [address] [place] [address] [place] [address] Physician Radiation Oncology 10/01/22 Ryan Hollis, RESEARCH GREENHOUSE SUPERVISOR.REMARKETING REP [address] [place] [address] [place] [address] Nurse Practitioner Hematology/Oncology 10/01/22 Denisha Duarte, ALEXUS [address] [place] [address] [place] [address] Specialty Latex Thread Machine Operator Hematology/Oncology 10/01/22 Chelsie Ríos, RN Specialty Latex Thread Machine Operator Colon and Rectal Surgery 02/18/23 02/19/28 Pcu Rn Relationship Specialty Start Date End Date Lorenzo Olson DO PCP - General Family Medicine 04/16/13 Sera Forbes LSW Research Leader 09/26/22 Nick Anderson MD [address] [place] [address] [place] [address] Physician Hematology/Oncology 10/01/22 Dania Vásquez MD [address] [place] [address] [place] [address] Physician Radiation Oncology 10/01/22 Ryan Hollis APRN.REMARKETING REP [address] [place] [address] [place] [address] Nurse Practitioner Hematology/Oncology 10/01/22 Denisha Duarte RN [address] [place] [address] [place] [address] Specialty Latex Thread Machine Operator Hematology/Oncology 10/01/22 Chelise Ríos, RN Specialty Latex Thread Machine Operator Colon and Rectal Surgery 02/18/23 02/19/28 Pcu Rn Relationship Specialty Start Date End Date Lorenzo Olson DO PCP - General Family Medicine 04/16/13 Sera Forbes LSW Research Leader 09/26/22 Nick Anderson MD [address] [facility] [place] [address] Physician Hematology/Oncology 10/01/22 Dania Vásquez MD [address] [facility] [place] [address] Physician Radiation Oncology 10/01/22 Ryan Hollis, RESEARCH GREENHOUSE SUPERVISOR.REMARKETING REP [address] [place] [address] [place] [address] Nurse Practitioner Hematology/Oncology 10/01/22 Denisha Duarte, ALEXUS [address] [facility] [place] [address] Specialty Latex Thread Machine Operator Hematology/Oncology 10/01/22 Chelsie Ríos RN Specialty Latex Thread Machine Operator Colon and Rectal Surgery 02/18/23 02/19/28 Pcu Rn Relationship Specialty Start Date End Date Lorenzo Olson DO PCP - General Family Medicine 04/16/13 Sera Forbes LSW Research Leader 09/26/22 Nick Anderson MD [address] [place] [address] [place] [address] Physician Hematology/Oncology 10/01/22 Dania Vásquez MD [address] [place] [address] [place] [address] Physician Radiation Oncology 10/01/22 Ryna Hollis, RESEARCH GREENHOUSE SUPERVISOR.REMARKETING REP [address] [facility] [place] [address] Nurse Practitioner Hematology/Oncology 10/01/22 Denisha Duarte, ALEXUS [address] [facility] [place] [address] Specialty Latex Thread Machine Operator Hematology/Oncology 10/01/22 Chelsie Ríos RN Specialty Latex Thread Machine Operator Colon and Rectal Surgery 02/18/23 02/19/28 Source Comments (unrecognize d section and content) In the event this informatio n is protected by the Federal Confidentiality of Alcohol and Drug Abuse Patient Records regulations: The Federal rules restrict any use of the information to criminally investigate or prosecute any alcohol or drug abuse patient.[facility] [place]woodIn the event this information is protected by the Federal Confidentiality of Alcohol and Drug Abuse Patient Records regulations: The Federal rules restrict any use of the information to criminally investigate or prosecute any alcohol or drug abuse patient.[facility], [place]woodIn the event this information is protected by the Federal Confidentiality of Alcohol and Drug Abuse Patient Records regulations: The Federal rules restrict any use of the information to criminally investigate or prosecute any alcohol or drug abuse patient.[facility], [place]woodIn the event this information is protected by the Federal Confidentiality of Alcohol and Drug Abuse Patient Records regulations: The Federal rules restrict any use of the information to criminally investigate or prosecute any alcohol or drug abuse patient.[facility] the event this information is protected by the Federal Confidentiality of Alcohol and Drug Abuse Patient Records regulations: The Federal rules restrict any use of the information to criminally investigate or prosecute any alcohol or drug abuse patient.[facility], [place]woodIn the event this information is protected by the Federal Confidentiality of Alcohol and Drug Abuse Patient Records regulations: The Federal rules restrict any use of the information to criminally investigate or prosecute any alcohol or drug abuse patient.[facility], [place]woodIn the event this information is protected by the Federal Confidentiality of Alcohol and Drug Abuse Patient Records regulations: The Federal rules restrict any use of the information to criminally investigate or prosecute any alcohol or drug abuse patient.[facility], [place]woodIn the event this information is protected by the Federal Confidentiality of Alcohol and Drug Abuse Patient Records regulations: The Federal rules restrict any use of the information to criminally investigate or prosecute any alcohol or drug abuse patient.[facility], [place]woodIn the event this information is protected by the Federal Confidentiality of Alcohol and Drug Abuse Patient Records regulations: The Federal rules restrict any use of the information to criminally investigate or prosecute any alcohol or drug abuse patient.[facility], [place]woodIn the event this information is protected by the Federal Confidentiality of Alcohol and Drug Abuse Patient Records regulations: The Federal rules restrict any use of the information to criminally investigate or prosecute any alcohol or drug abuse patient.[facility], [place]woodIn the event this information is protected by the Federal Confidentiality of Alcohol and Drug Abuse Patient Records regulations: The Federal rules restrict any use of the information to criminally investigate or prosecute any alcohol or drug abuse patient.[facility] [place]woodIn the event this information is protected by the Federal Confidentiality of Alcohol and Drug Abuse Patient Records regulations: The Federal rules restrict any use of the information to criminally investigate or prosecute any alcohol or drug abuse patient.[facility] [place]In the event this information is protected by the Federal Confidentiality of Alcohol and Drug Abuse Patient Records regulations: The Federal rules restrict any use of the information to criminally investigate or prosecute any alcohol or drug abuse patient.[facility], [place]woodIn the event this information is protected by the Federal Confidentiality of Alcohol and Drug Abuse Patient Records regulations: The Federal rules restrict any use of the information to criminally investigate or prosecute any alcohol or drug abuse patient.[facility], [place]woodIn the event this information is protected by the Federal Confidentiality of Alcohol and Drug Abuse Patient Records regulations: The Federal rules restrict any use of the information to criminally investigate or prosecute any alcohol or drug abuse patient.[facility], [place]woodIn the event this information is protected by the Federal Confidentiality of Alcohol and Drug Abuse Patient Records regulations: The Federal rules restrict any use of the information to criminally investigate or prosecute any alcohol or drug abuse patient.[facility], [place]woodIn the event this information is protected by the Federal Confidentiality of Alcohol and Drug Abuse Patient Records regulations: The Federal rules restrict any use of the information to criminally investigate or prosecute any alcohol or drug abuse patient.[facility], [place]woodIn the event this information is protected by the Federal Confidentiality of Alcohol and Drug Abuse Patient Records regulations: The Federal rules restrict any use of the information to criminally investigate or prosecute any alcohol or drug abuse patient.[facility], [place]woodIn the event this information is protected by the Federal Confidentiality of Alcohol and Drug Abuse Patient Records regulations: The Federal rules restrict any use of the information to criminally investigate or prosecute any alcohol or drug abuse patient.[facility], [place]woodIn the event this information is protected by the Federal Confidentiality of Alcohol and Drug Abuse Patient Records regulations: The Federal rules restrict any use of the information to criminally investigate or prosecute any alcohol or drug abuse patient.[facility], [place]In the event this information is protected by the Federal Confidentiality of Alcohol and Drug Abuse Patient Records regulations: The Federal rules restrict any use of the information to criminally investigate or prosecute any alcohol or drug abuse patient.[facility], [place]In the event this information is protected by the Federal Confidentiality of Alcohol and Drug Abuse Patient Records regulations: The Federal rules restrict any use of the information to criminally investigate or prosecute any alcohol or drug abuse patient.[facility], [place]In the event this information is protected by the Federal Confidentiality of Alcohol and Drug Abuse Patient Records regulations: The Federal rules restrict any use of the information to criminally investigate or prosecute any alcohol or drug abuse patient.[facility], [place]In the event this information is protected by the Federal Confidentiality of Alcohol and Drug Abuse Patient Records regulations: The Federal rules restrict any use of the information to criminally investigate or prosecute any alcohol or drug abuse patient.[facility], [place]In the event this information is protected by the Federal Confidentiality of Alcohol and Drug Abuse Patient Records regulations: The Federal rules restrict any use of the information to criminally investigate or prosecute any alcohol or drug abuse patient.[facility], [place]In the event this information is protected by the Federal Confidentiality of Alcohol and Drug Abuse Patient Records regulations: The Federal rules restrict any use of the information to criminally investigate or prosecute any alcohol or drug abuse patient.[facility], [place]In the event this information is protected by the Federal Confidentiality of Alcohol and Drug Abuse Patient Records regulations: The Federal rules restrict any use of the information to criminally investigate or prosecute any alcohol or drug abuse patient.[facility], [place]In the event this information is protected by the Federal Confidentiality of Alcohol and Drug Abuse Patient Records regulations: The Federal rules restrict any use of the information to criminally investigate or prosecute any alcohol or drug abuse patient.[facility], [place]In the event this information is protected by the Federal Confidentiality of Alcohol and Drug Abuse Patient Records regulations: The Federal rules restrict any use of the information to criminally investigate or prosecute any alcohol or drug abuse patient.[facility], [place]In the event this information is protected by the Federal Confidentiality of Alcohol and Drug Abuse Patient Records regulations: The Federal rules restrict any use of the information to criminally investigate or prosecute any alcohol or drug abuse patient.[facility], [place]In the event this information is protected by the Federal Confidentiality of Alcohol and Drug Abuse Patient Records regulations: The Federal rules restrict any use of the information to criminally investigate or prosecute any alcohol or drug abuse patient.[facility], [place]In the event this information is protected by the Federal Confidentiality of Alcohol and Drug Abuse Patient Records regulations: The Federal rules restrict any use of the information to criminally investigate or prosecute any alcohol or drug abuse patient.[facility], [place]In the event this information is protected by the Federal Confidentiality of Alcohol and Drug Abuse Patient Records regulations: The Federal rules restrict any use of the information to criminally investigate or prosecute any alcohol or drug abuse patient.[facility], [place]In the event this information is protected by the Federal Confidentiality of Alcohol and Drug Abuse Patient Records regulations: The Federal rules restrict any use of the information to criminally investigate or prosecute any alcohol or drug abuse patient.[facility], [place]In the event this information is protected by the Federal Confidentiality of Alcohol and Drug Abuse Patient Records regulations: The Federal rules restrict any use of the information to criminally investigate or prosecute any alcohol or drug abuse patient.[facility], [place]In the event this information is protected by the Federal Confidentiality of Alcohol and Drug Abuse Patient Records regulations: The Federal rules restrict any use of the information to criminally investigate or prosecute any alcohol or drug abuse patient.[facility], [place]In the event this information is protected by the Federal Confidentiality of Alcohol and Drug Abuse Patient Records regulations: The Federal rules restrict any use of the information to criminally investigate or prosecute any alcohol or drug abuse patient.[facility], [place]In the event this information is protected by the Federal Confidentiality of Alcohol and Drug Abuse Patient Records regulations: The Federal rules restrict any use of the information to criminally investigate or prosecute any alcohol or drug abuse patient.[facility], [place]In the event this information is protected by the Federal Confidentiality of Alcohol and Drug Abuse Patient Records regulations: The Federal rules restrict any use of the information to criminally investigate or prosecute any alcohol or drug abuse patient.[facility], [place]In the event this information is protected by the Federal Confidentiality of Alcohol and Drug Abuse Patient Records regulations: The Federal rules restrict any use of the information to criminally investigate or prosecute any alcohol or drug abuse patient.[facility], [place]In the event this information is protected by the Federal Confidentiality of Alcohol and Drug Abuse Patient Records regulations: The Federal rules restrict any use of the information to criminally investigate or prosecute any alcohol or drug abuse patient.[facility], [place]In the event this information is protected by the Federal Confidentiality of Alcohol and Drug Abuse Patient Records regulations: The Federal rules restrict any use of the information to criminally investigate or prosecute any alcohol or drug abuse patient.[facility], [place]In the event this information is protected by the Federal Confidentiality of Alcohol and Drug Abuse Patient Records regulations: The Federal rules restrict any use of the information to criminally investigate or prosecute any alcohol or drug abuse patient.[facility], [place]In the event this information is protected by the Federal Confidentiality of Alcohol and Drug Abuse Patient Records regulations: The Federal rules restrict any use of the information to criminally investigate or prosecute any alcohol or drug abuse patient.[facility], [place]In the event this information is protected by the Federal Confidentiality of Alcohol and Drug Abuse Patient Records regulations: The Federal rules restrict any use of the information to criminally investigate or prosecute any alcohol or drug abuse patient.[facility], [place]In the event this information is protected by the Federal Confidentiality of Alcohol and Drug Abuse Patient Records regulations: The Federal rules restrict any use of the information to criminally investigate or prosecute any alcohol or drug abuse patient.[facility], [place]In the event this information is protected by the Federal Confidentiality of Alcohol and Drug Abuse Patient Records regulations: The Federal rules restrict any use of the information to criminally investigate or prosecute any alcohol or drug abuse patient.[facility], [place]In the event this information is protected by the Federal Confidentiality of Alcohol and Drug Abuse Patient Records regulations: The Federal rules restrict any use of the information to criminally investigate or prosecute any alcohol or drug abuse patient.[facility], [place]In the event this information is protected by the Federal Confidentiality of Alcohol and Drug Abuse Patient Records regulations: The Federal rules restrict any use of the information to criminally investigate or prosecute any alcohol or drug abuse patient.[facility], [place]In the event this information is protected by the Federal Confidentiality of Alcohol and Drug Abuse Patient Records regulations: The Federal rules restrict any use of the information to criminally investigate or prosecute any alcohol or drug abuse patient.[facility], [place]In the event this information is protected by the Federal Confidentiality of Alcohol and Drug Abuse Patient Records regulations: The Federal rules restrict any use of the information to criminally investigate or prosecute any alcohol or drug abuse patient.[facility], [place]In the event this information is protected by the Federal Confidentiality of Alcohol and Drug Abuse Patient Records regulations: The Federal rules restrict any use of the information to criminally investigate or prosecute any alcohol or drug abuse patient.[facility], [place]In the event this information is protected by the Federal Confidentiality of Alcohol and Drug Abuse Patient Records regulations: The Federal rules restrict any use of the information to criminally investigate or prosecute any alcohol or drug abuse patient.[facility], [place]In the event this information is protected by the Federal Confidentiality of Alcohol and Drug Abuse Patient Records regulations: The Federal rules restrict any use of the information to criminally investigate or prosecute any alcohol or drug abuse patient.[facility] the event this information is protected by the Federal Confidentiality of Alcohol and Drug Abuse Patient Records regulations: The Federal rules restrict any use of the information to criminally investigate or prosecute any alcohol or drug abuse patient.[facility], [place]In the event this information is protected by the Federal Confidentiality of Alcohol and Drug Abuse Patient Records regulations: The Federal rules restrict any use of the information to criminally investigate or prosecute any alcohol or drug abuse patient.[facility], [place]In the event this information is protected by the Federal Confidentiality of Alcohol and Drug Abuse Patient Records regulations: The Federal rules restrict any use of the information to criminally investigate or prosecute any alcohol or drug abuse patient.[facility], [place]In the event this information is protected by the Federal Confidentiality of Alcohol and Drug Abuse Patient Records regulations: The Federal rules restrict any use of the information to criminally investigate or prosecute any alcohol or drug abuse patient.[facility], [place]In the event this information is protected by the Federal Confidentiality of Alcohol and Drug Abuse Patient Records regulations: The Federal rules restrict any use of the information to criminally investigate or prosecute any alcohol or drug abuse patient.[facility], [place]In the event this information is protected by the Federal Confidentiality of Alcohol and Drug Abuse Patient Records regulations: The Federal rules restrict any use of the information to criminally investigate or prosecute any alcohol or drug abuse patient.[facility], [place]In the event this information is protected by the Federal Confidentiality of Alcohol and Drug Abuse Patient Records regulations: The Federal rules restrict any use of the information to criminally investigate or prosecute any alcohol or drug abuse patient.[facility], [place]In the event this information is protected by the Federal Confidentiality of Alcohol and Drug Abuse Patient Records regulations: The Federal rules restrict any use of the information to criminally investigate or prosecute any alcohol or drug abuse patient.[facility], [place]In the event this information is protected by the Federal Confidentiality of Alcohol and Drug Abuse Patient Records regulations: The Federal rules restrict any use of the information to criminally investigate or prosecute any alcohol or drug abuse patient.[facility], [place]In the event this information is protected by the Federal Confidentiality of Alcohol and Drug Abuse Patient Records regulations: The Federal rules restrict any use of the information to criminally investigate or prosecute any alcohol or drug abuse patient.[facility], [place]In the event this information is protected by the Federal Confidentiality of Alcohol and Drug Abuse Patient Records regulations: The Federal rules restrict any use of the information to criminally investigate or prosecute any alcohol or drug abuse patient.[facility], [place]In the event this information is protected by the Federal Confidentiality of Alcohol and Drug Abuse Patient Records regulations: The Federal rules restrict any use of the information to criminally investigate or prosecute any alcohol or drug abuse patient.[facility], [place]In the event this information is protected by the Federal Confidentiality of Alcohol and Drug Abuse Patient Records regulations: The Federal rules restrict any use of the information to criminally investigate or prosecute any alcohol or drug abuse patient.[facility], [place]In the event this information is protected by the Federal Confidentiality of Alcohol and Drug Abuse Patient Records regulations: The Federal rules restrict any use of the information to criminally investigate or prosecute any alcohol or drug abuse patient.[facility], [place]In the event this information is protected by the Federal Confidentiality of Alcohol and Drug Abuse Patient Records regulations: The Federal rules restrict any use of the information to criminally investigate or prosecute any alcohol or drug abuse patient.[facility], [place]In the event this information is protected by the Federal Confidentiality of Alcohol and Drug Abuse Patient Records regulations: The Federal rules restrict any use of the information to criminally investigate or prosecute any alcohol or drug abuse patient.[facility], [place]In the event this information is protected by the Federal Confidentiality of Alcohol and Drug Abuse Patient Records regulations: The Federal rules restrict any use of the information to criminally investigate or prosecute any alcohol or drug abuse patient.[facility], [place]In the event this information is protected by the Federal Confidentiality of Alcohol and Drug Abuse Patient Records regulations: The Federal rules restrict any use of the information to criminally investigate or prosecute any alcohol or drug abuse patient.[facility], [place]In the event this information is protected by the Federal Confidentiality of Alcohol and Drug Abuse Patient Records regulations: The Federal rules restrict any use of the information to criminally investigate or prosecute any alcohol or drug abuse patient.[facility], [place]In the event this information is protected by the Federal Confidentiality of Alcohol and Drug Abuse Patient Records regulations: The Federal rules restrict any use of the information to criminally investigate or prosecute any alcohol or drug abuse patient.[facility], [place]In the event this information is protected by the Federal Confidentiality of Alcohol and Drug Abuse Patient Records regulations: The Federal rules restrict any use of the information to criminally investigate or prosecute any alcohol or drug abuse patient.[facility], [place]In the event this information is protected by the Federal Confidentiality of Alcohol and Drug Abuse Patient Records regulations: The Federal rules restrict any use of the information to criminally investigate or prosecute any alcohol or drug abuse patient.[facility], [place]In the event this information is protected by the Federal Confidentiality of Alcohol and Drug Abuse Patient Records regulations: The Federal rules restrict any use of the information to criminally investigate or prosecute any alcohol or drug abuse patient.[facility], [place]In the event this information is protected by the Federal Confidentiality of Alcohol and Drug Abuse Patient Records regulations: The Federal rules restrict any use of the information to criminally investigate or prosecute any alcohol or drug abuse patient.[facility], [place]In the event this information is protected by the Federal Confidentiality of Alcohol and Drug Abuse Patient Records regulations: The Federal rules restrict any use of the information to criminally investigate or prosecute any alcohol or drug abuse patient.[facility], [place]In the event this information is protected by the Federal Confidentiality of Alcohol and Drug Abuse Patient Records regulations: The Federal rules restrict any use of the information to criminally investigate or prosecute any alcohol or drug abuse patient.[facility], [place]In the event this information is protected by the Federal Confidentiality of Alcohol and Drug Abuse Patient Records regulations: The Federal rules restrict any use of the information to criminally investigate or prosecute any alcohol or drug abuse patient.[facility], [place]In the event this information is protected by the Federal Confidentiality of Alcohol and Drug Abuse Patient Records regulations: The Federal rules restrict any use of the information to criminally investigate or prosecute any alcohol or drug abuse patient.[facility], [place]In the event this information is protected by the Federal Confidentiality of Alcohol and Drug Abuse Patient Records regulations: The Federal rules restrict any use of the information to criminally investigate or prosecute any alcohol or drug abuse patient.[facility], [place]In the event this information is protected by the Federal Confidentiality of Alcohol and Drug Abuse Patient Records regulations: The Federal rules restrict any use of the information to criminally investigate or prosecute any alcohol or drug abuse patient.[facility], [place]In the event this information is protected by the Federal Confidentiality of Alcohol and Drug Abuse Patient Records regulations: The Federal rules restrict any use of the information to criminally investigate or prosecute any alcohol or drug abuse patient.[facility], [place]In the event this information is protected by the Federal Confidentiality of Alcohol and Drug Abuse Patient Records regulations: The Federal rules restrict any use of the information to criminally investigate or prosecute any alcohol or drug abuse patient.[facility], [place]In the event this information is protected by the Federal Confidentiality of Alcohol and Drug Abuse Patient Records regulations: The Federal rules restrict any use of the information to criminally investigate or prosecute any alcohol or drug abuse patient.[facility], [place]In the event this information is protected by the Federal Confidentiality of Alcohol and Drug Abuse Patient Records regulations: The Federal rules restrict any use of the information to criminally investigate or prosecute any alcohol or drug abuse patient.[facility], [place]In the event this information is protected by the Federal Confidentiality of Alcohol and Drug Abuse Patient Records regulations: The Federal rules restrict any use of the information to criminally investigate or prosecute any alcohol or drug abuse patient.[facility], [place]In the event this information is protected by the Federal Confidentiality of Alcohol and Drug Abuse Patient Records regulations: The Federal rules restrict any use of the information to criminally investigate or prosecute any alcohol or drug abuse patient.[facility], [place]In the event this information is protected by the Federal Confidentiality of Alcohol and Drug Abuse Patient Records regulations: The Federal rules restrict any use of the information to criminally investigate or prosecute any alcohol or drug abuse patient.[facility], [place]In the event this information is protected by the Federal Confidentiality of Alcohol and Drug Abuse Patient Records regulations: The Federal rules restrict any use of the information to criminally investigate or prosecute any alcohol or drug abuse patient.[facility], [place]In the event this information is protected by the Federal Confidentiality of Alcohol and Drug Abuse Patient Records regulations: The Federal rules restrict any use of the information to criminally investigate or prosecute any alcohol or drug abuse patient.[facility], [place]In the event this information is protected by the Federal Confidentiality of Alcohol and Drug Abuse Patient Records regulations: The Federal rules restrict any use of the information to criminally investigate or prosecute any alcohol or drug abuse patient.[facility] [facility] [place]woodIn the event this information is protected by the Federal Confidentiality of Alcohol and Drug Abuse Patient Records regulations: The Federal rules restrict any use of the information to criminally investigate or prosecute any alcohol or drug abuse patient.[facility], [place]woodIn the event this information is protected by the Federal Confidentiality of Alcohol and Drug Abuse Patient Records regulations: The Federal rules restrict any use of the information to criminally investigate or prosecute any alcohol or drug abuse patient.[facility] [place]In the event this information is protected by the Federal Confidentiality of Alcohol and Drug Abuse Patient Records regulations: The Federal rules restrict any use of the information to criminally investigate or prosecute any alcohol or drug abuse patient.[facility] [place]In the event this information is protected by the Federal Confidentiality of Alcohol and Drug Abuse Patient Records regulations: The Federal rules restrict any use of the information to criminally investigate or prosecute any alcohol or drug abuse patient.[facility] [place] the event this information is protected by the Federal Confidentiality of Alcohol and Drug Abuse Patient Records regulations: The Federal rules restrict any use of the information to criminally investigate or prosecute any alcohol or drug abuse patient.[facility] [place] the event this information is protected by the Federal Confidentiality of Alcohol and Drug Abuse Patient Records regulations: The Federal rules restrict any use of the information to criminally investigate or prosecute any alcohol or drug abuse patient.[facility] [place]In the event this information is protected by the Federal Confidentiality of Alcohol and Drug Abuse Patient Records regulations: The Federal rules restrict any use of the information to criminally investigate or prosecute any alcohol or drug abuse patient.[facility] [place]In the event this information is protected by the Federal Confidentiality of Alcohol and Drug Abuse Patient Records regulations: The Federal rules restrict any use of the information to criminally investigate or prosecute any alcohol or drug abuse patient.[facility] [place]woodIn the event this information is protected by the Federal Confidentiality of Alcohol and Drug Abuse Patient Records regulations: The Federal rules restrict any use of the information to criminally investigate or prosecute any alcohol or drug abuse patient.[facility] [place]In the event this information is protected by the Federal Confidentiality of Alcohol and Drug Abuse Patient Records regulations: The Federal rules restrict any use of the information to criminally investigate or prosecute any alcohol or drug abuse patient.[facility] the event this information is protected by the Federal Confidentiality of Alcohol and Drug Abuse Patient Records regulations: The Federal rules restrict any use of the information to criminally investigate or prosecute any alcohol or drug abuse patient.[facility] [place]In the event this information is protected by the Federal Confidentiality of Alcohol and Drug Abuse Patient Records regulations: The Federal rules restrict any use of the information to criminally investigate or prosecute any alcohol or drug abuse patient.[facility] [place]In the event this information is protected by the Federal Confidentiality of Alcohol and Drug Abuse Patient Records regulations: The Federal rules restrict any use of the information to criminally investigate or prosecute any alcohol or drug abuse patient.[facility] [place]woodIn the event this information is protected by the Federal Confidentiality of Alcohol and Drug Abuse Patient Records regulations: The Federal rules restrict any use of the information to criminally investigate or prosecute any alcohol or drug abuse patient.[facility] [place]In the event this information is protected by the Federal Confidentiality of Alcohol and Drug Abuse Patient Records regulations: The Federal rules restrict any use of the information to criminally investigate or prosecute any alcohol or drug abuse patient.[facility] [place]woodIn the event this information is protected by the Federal Confidentiality of Alcohol and Drug Abuse Patient Records regulations: The Federal rules restrict any use of the information to criminally investigate or prosecute any alcohol or drug abuse patient.[facility] [place]woodIn the event this information is protected by the Federal Confidentiality of Alcohol and Drug Abuse Patient Records regulations: The Federal rules restrict any use of the information to criminally investigate or prosecute any alcohol or drug abuse patient.[facility] [place] Reason for Visit (unrecogniz ed section and content) Reason Comments Appointment Reason Comments adenocarcinoma of rectum Reason Comments Patient Education Reason Comments Call Back 48 Hours Reason Comments Future Appointment Reason Onset Date Comments Simulation Request Form 09/24/2022 Reason Comments Care Coordination Treatment Planning Reason Comments Nutrition Assessment Reason Comments Social Work Services Reason Comments Care Coordination Medication Start Brian e - Capecitabine Reason Comments Oral Anti-cancer Agent Education Capecit abine Reason Comments Rectal Cancer Followup Reason Comments Cough Reason Comments Bronchoscopy Scheduling Reason Comments Care Coordination Medication Question Reason Comments Care Coordination Bronchoscopy Reason Comments Radiotherapy On-treatment Visit Reason Comments Lymphadenopathy Reason Comments Care Coordination Antiemetics Reason Comments Care Coordination Oral Anti-Cancer Age nt Follow Up Reason Comments Rectal Cancer Follow up Reason Comments Rectal Cancer Weekly check Reason Comments Nutrition Counseling Reason Comments Rectal Cancer Reason Comments Pain Reason Comments Orders Reason Comments Rectal Cancer Treatment visit Reason Comments Rectal Cancer Reason Comments Results Reason Comments Lab Orders Reason Comments Radiology Pre Procedure Instructions Reason Comments Referral Information Port placement Reason Comments Erroneous encounter-disregard Reason Comments Chemotherapy Treatment Oxaliplatin, Leuc ovorin, 5FU Specialty Diagnoses / Procedures Referred By Contac Referred To Contact Diagnoses Rectal cancer (HCC) Nick Anderson MD [address] [place] [address] [place] [address] Juan Carlos [place] [address] [place] [address] Referral ID Status Reason Start Date Expiration Date V isits Requested Visits Authorized [id number] Authorized 12/17/2022 03/17/2023 99 99 Reason Comments Care Coordination C1D1 treatment follo w up call Specialty Diagnoses / Procedures [facility] To Contact Hematology / HEMATOLOGY/ONCOLOGY Diagnoses lab port chemotx FOLFOX *NEW START CHANGE IN TREATMENT* Procedures LAB/PORT Nick Anderson MD [address] [place] [address] [place] [address] Juan Carlos [place] [address] [place] [address] Referral ID Status Reason Start Date Expiration Date V isits Requested Visits Authorized [id number] Authorized 12/25/2022 10/20/2023 99 99 Reason Comments Rectal Cancer OTV 2 weeks 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 Rectal 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 Reason Comments Care Coordination US Order Reason Onset Date Comments Refill Request 01/23/2023 Reason Comments Care Coordination DVT; Eliquis Reason Comments New Patient Evaluation Rectal Bleeding Specialty Diagnoses / Procedures Referred By Contac t Referred To Contact Gastroenterology Diagnoses Rectal cancer (HCC) Rectal bleeding Procedures CONSULT TO GASTROENTEROLOGY OFFICE/OUTPATIENT NEW HIGH MDM 60-74 MINUTES Ryan Hollis, [facility] [address] [place] [address] Referral ID Status Reason Start Date Expiration Date V isits Requested Visits Authorized [id number] Closed PCP Requested Referral 01/23/2023 01/23/2024 1 1 Reason Comments New Patient Consult for rectal c ancer Reason Comments Rectal Cancer Treatment visit/port draw Reason Comments Medication Assistance Approved for Free Xarelto Reason Comments Patient Question Reason Comments Care Coordination MRI Question Reason Comments Orders Flex sig, CEA, MRI, CT 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 Lab Results; Ne uropathy Reason Comments Port Flush Specialty Diagnoses / Procedures Referred By Rosanne t Referred To Contact Hematology / HEMATOLOGY/ONCOLOGY Diagnoses lab port chemotx FOLFOX *NEW START CHANGE IN TREATMENT* Procedures LAB/PORT Nick Anderson MD [address] [place] [address] Juan Carlos Alfred [address] [place] [address] Goals (unrecognized section and content) Goals may be documented in a n alternate section FOR RECORDS PERTAINING TO PATIENTS WHO ARE OR HAVE BEEN ENROLLED IN A CHEMICAL DEPENDENCY/SUBSTANCEABUSE PROGRAM, SOME INFORMATION MAY BE OMITTED. This clinical summary was aggregated from multiple sources. Caution should be exercised in using it in the provision of clinical care. This summary normalizes information from multiple sources, and as a consequence, information in this document may materially change the coding, format and clinical context of patient data. In addition, data may be omitted in some cases. CLINICAL DECISIONS SHOULD BE BASED ON THE PRIMARY CLINICAL RECORDS. [facility] [employer] [facility]. provides no warranty or guarantee of the accuracy or completeness of information in this document.
[2023-11-12 07:11] VITALS: BP 112/75; PULSE 67; RESP 16; TEMP 36.2; O2SAT 97
[2023-11-12] MEDS: BUPIVACAINE HCL 0.25% PF 25 MG/10 ML VIAL 4 ML INJ (08:09)
[2023-11-12 08:12] VITALS: BP 124/74; BP 128/76; PULSE 62; PULSE 68; RESP 18; O2SAT 94; O2SAT 95
--- NOTE | 2023-11-12 08:48 | W.PM.PROCNOT ---
Date of procedure: 11/12/23 Pre-op diagnosis: Lumbar Spondylosis Post-op diagnosis: same as pre-op Procedure: Left Lumbar 4/5, 5/sacral 1 medial branch block Under fluoroscopic guidance Solution injected: 2millilitersMarcaine 0.25% Anesthesia :none Immediate complications none Time out process compliant After informed consent obtained from the patient placed in the Prone proposition . area was prepped and draped in a sterile fashion using Cloraprep .25 gauge spinal needle inserted over each of the above mentioned target areas . Chunky were directed towards the target under fluoroscopic guidance . after encountering each of the targets , no indication of intravascular intraneuronal or intrathecal needle tip placement. Then 0 .5 to 1 Milliliter was injected at each level. Chunky removed postoperatively. patient transferred to recovery in stable condition to be discharged home after meeting criteria Anesthesia: Local Surgeon: Alexis Cohen Condition: stable
== END 2023-11-12 08:19 | disposition home or self-care (01) ==
LOC: SURGOUT 07:01
PROVIDERS: PCP Family Medicine; Visit Provider Anesthesiology Pain Medicine
DX: M47.816 Spondylosis without myelopathy or radiculopathy, lumbar region (principal)
CPT/HCPCS: 64493; 64494; J0665

== ENCOUNTER 2023-11-21 12:23 | Outpatient (OUT) | payer MEDICARE, OTHER, SELFPAY ==
--- NOTE | 2023-11-21 12:38 | P.CN_ITS ---
Consult Note: HPI Data of Consult Patient: known to practice within the last 3 years Consult date: 11/21/23 Requesting Physician: Ml Antony NP Primary Care Provider: LORENZO OLSON Consult Narrative Reason for consult: f/u Narrative: Eron Damon a pleasant 73 year old male presents for evaluation and manage ment of chronic low back pain unresponsive to PT/HEP, conservative medications. Patient recently underwent left L4/5 L5/S1 facet medial branch block #1 with 90% pain relief and functional improvement immediately after and hours following . Today pain in left low back 2-3/10 pinching/nerve pain . Pain increased with standing, walking, housework, lifting legs, stairs, activity. cc:: CC: Ml Antony NP Review of Systems ROS Status of ROS 10 or more systems reviewed and unremark able except as noted in history and below Musculoskeletal Reports: back pain PFSH PFSH Medical History (Updated 11/21/23 @ 12:50 by Ml Antony NP) Fusion of spine, cervical region ?M43.22 - Fusion of spine, cervical region (ICD-10) Rectal cancer ?C20 - Malignant neoplasm of rectum (ICD-10) Rheumatoid arthritis ?M06.9 - Rheumatoid arthritis, unspecified (ICD-10) Pulmonary emboli ?I26.99 - Other pulmonary embolism without acute cor pulmonale (ICD-10) Surgical History H/O foot surgery ?Z98.890 - Other specified postprocedural states (ICD-10) Meds Home Medications and Allergies Home Medications Medication Instructions Recorded Confirmed Type ascorbic acid (vitamin C) 500 mg 500 mg PO DAILY 10/30/23 11/12/23 History chewable tablet (Acerola C) calcium 600 mg capsule mg PO 10/30/23 History carvedilol 6.25 mg tablet 6.25 mg PO BID 10/30/23 11/12/23 History finasteride 5 mg tablet 5 mg PO DAILY 10/30/23 11/12/23 History glucosamine sulfate 500 mg tablet 500 mg PO DAILY 10/30/23 11/12/23 History (Glucosamine) prednisone 5 mg tablet 5 mg PO DAILY 10/30/23 11/12/23 History rivaroxaban 10 mg tablet (Xarelto) 10 mg PO DAILY 10/30/23 11/12/23 History tamsulosin 0.4 mg capsule 0.4 mg PO DAILY 10/30/23 11/12/23 History valsartan 80 mg tablet 80 mg PO DAILY 10/30/23 11/12/23 History Allergies Allergy/AdvReac Type Severity Reaction Status Date / Time No Known Drug Allergies Allergy Verified 11/12/23 07:16 Exam Constitutional Documenting provider has reviewed patient's vital signs: yes Common normals: no apparent distress, oriented x3, healthy appearing, alert and well nourished General appearance: cooperative HENMT Common normals: normocephalic, hearing grossly normal bilaterally and moist oral mucous membranes Head and scalp: normocephalic Eye Common normals: PERRL Pupil: PERRL Neck & C-Spine Common normals: full ROM General: normal visual inspection Chest Common normals: inspection of chest normal Respiratory Common normals: normal respiratory effort, no retractions and no use of accessory muscles Back & Pelvis Lumbar spine/lower back: ROM limited, pain with ROM and straight leg raise negative bilaterally Sacroiliac joints: SI joints normal Other: axial low back pain Neuro Common normals: oriented x3, CN's II-XII intact bilaterally, moves all extremities, no focal motor deficits, no sensory deficits noted and deep tendon reflexes 2+ bilaterally Sensorium/orientation: alert Motor exam: strength 5/5 throughout and no movement abnormalities noted Psych Common normals: mental status grossly normal, thought process normal, cooperative, affect normal, speech normal and activity/motor behavior normal Speech: normal speech Thought process: normal thought process Results Additional Findings Additional findings: I have checked an [place]AR[place] report on this patient today and there are no aberrancies noted in the prescribing history.?? A drug screen was completed and reviewed within the last year, and if there has not been a drug screen completed we ordered one today to monitor higher risk, state monitored pain medication use. As part of providing excellent, safe, comprehensive care, the following was completed at our patient's visit: 1. A medication reconciliation and review to ensure accurate knowledge of current/active medications, including asking our patients to inform us about any [id number] medications or herbal remedies/nutritional supplements/alternative remedies. 2. A review to specifically ensure our patients have had annual screening for: elevated body mass index (BMI), tobacco use, screening for depression, and screening for unhealthy alcohol use. When screening is concerning, patients are provided with education and the specific recommendation to discuss the concerning health issue and treatment options with their primary care provider. Assessment and Plan Assessment and Plan (1) Lumbar spondylosis: (2) Lumbar stenosis with neurogenic claudication: Plan proceed with bilateral L4-5 L5-S1 facet medial branch block #2 working towards thermal RFA. risks vs benefits discussed continue HEP as tolerated f/u 1 week after procedure
== END 2023-11-21 12:24 | disposition home or self-care (01) ==
LOC: PM 12:24
PROVIDERS: PCP Family Medicine; Visit Provider Nurse Practitioner
DX: M47.816 Spondylosis without myelopathy or radiculopathy, lumbar region (principal); M48.062 Spinal stenosis, lumbar region with neurogenic claudication
CPT/HCPCS: G0463

== ENCOUNTER 2023-11-26 06:56 | Day surgery (SDC) | payer MEDICARE, OTHER, SELFPAY ==
--- OUTSIDE RECORDS SUMMARY | 2023-11-26 07:01 | XMS_ITS | CCD ---
Author Name Unknown Address [address] [place] [address] Organization [facility] Care Team Providers Care Acid Tester Name Role Phone SONAM ZAMBRANO Consulting Unavailable ISACC, LINK Attending Unavailable ISACC, LINK Admitting Unavailable TOMAS, DR LORENZO Dailey Primary Care Unavailable TOMAS, DR LORENZO Dailey Primary Care Unavailable DINORAH, DR SHANTEL Michael Consulting Unavailable ISACC, LINK Attending Unavailable ISACC, LINK Admitting Unavailable PAWANANDER, LINK Consulting Unavailable JOHANA CAMILO Consulting Unavailable CESAR MALDONADO Consulting Unavailable SAMANTHA, LAKSHMI Consulting Unavailable PAWANANDER, LINK Attending Unavailable DAMASO, DR DEBORAH Jack Consulting Unavailable PAWANANDER, LINK Admitting Unavailable ISACC, LINK Consulting Unavailable TOMAS, DR LORENZO Dailey Primary Care Unavailable ISACC, LINK Attending Unavailable ISACC, LINK Consulting Unavailable ISACC, LINK Admitting Unavailable Lorenzo OLSON Primary Care Physician [phone] Lucy Bhatti Unavailable Unavailable Christie Lemus Unavailable Unavailable Lorenzo Olson DO Primary Care Provider Lorenzo Olson DO Primary Care Provider Sera Welch Unavailable Unavailable THALIA TROY Referring Unavailable THALIA TROY Attending Unavailable THALIA TROY Attending Unavailable THALIA TROY Referring Unavailable DO Lorenzo Olson Primary Care Provider MD Minerva Anderson Attending Provider Minerva Anderson MD Unavailable [phone] Dania Vásquez MD Unavailable [phone] Wild THREAD GRINDER TOOL.SIGNALS ANALYST, Andree Unavailable Gerald VAUGHAN, Denisha Unavailable TOMASLORENZO Primary Care Unavailable HANG MAIER Attending Unavailable TOMAS, LORENZO Dailey Primary Care Unavailable HANG MAIER Attending Unavailable HANG MAIER Admitting Unavailable [place] VAUGHAN, Chelsie Dahl Unavailable Unavailable Darin Valencia Unavailable Tomas, Lorenzo Dailey Primary Care Provider JM Torres Attending Provider DEBORAH NORMAN Referring Unavailable TOMAS, LORENZO Dailey Primary Care Unavailable Tomas , Lorenzo Dailey Primary Care Provider Gerald VAUGHAN, Denisha Unavailable [phone] [place] VAUGHAN, Chelsie Dahl Unavailable Unavailable Lorenzo OLSON Primary Care Physician Tomas, Lorenzo Dailey Primary Care Provider JM Torres Attending Provider TomasLorenzo Primary Care Unavailable Torres, Valencia Admitting Unavailable Darin Valencia Attending Unavailable Lorenzo Olson Primary Care Unavailable Minerva Anderson Admitting Unavailable Minerva Anderson Attending Unavailable Darin Valencia Admitting Unavailable Valencia Torres Attending Unavailable Lorenzo Olson Primary Care Unavailable Torres, Valencia Admitting Unavailable Valencia Torres Attending Unavailable Lorenzo Olson Primary Care Unavailable CHELSIE FERNANDO Attending Unavailable NONE, XXXX Referring Unavailable Santiago Kong Admitting Unavaila Santiago Flower Attending Unavaila Corey Bob Admitting Unavailable Corey MCKEE Attending Unavailable Corey MCKEE Referring Unavailable STANDania, ARACELY Cyndee L Referring Unavailable Santiago Kong Consulting Unavaila ble STANDania, SIGNALS ANALYST Cyndee L Admitting Unavailable STANDania, SIGNALS ANALYST Cyndee L Attending Unavailable Santiago Kong Consulting Unavaila ble Santiago Kong Consulting Unavaila ble Lorenzo OLSON Attending Unavailable Corey MCKEE Attending Unavailable Corey MCKEE Attending Unavailable Bryon Cruz Admitting Unavailable Bryon Cruz Attending Unavailable Andree Hollis Admitting Unavailable Andree Hollis Attending Unavailable Andree Hollis Referring Unavailable Yuridia Houser Attending Unavailable TOMAS Lorenzo Asim Referring Unavailable LUZ Torres Admitting UnavailCyndee Ayers Attending Unavailable MD Bryon Cruz Admitting Unavailable VALENCIA TORRES Referring Unavailable Bryon Cruz Attending Unavailable Bryon Cruz Attending Unavailable rByon Cruz Referring Unavailable NONE, XXXX Referring Unavailable LAURA, ARACELY Cotter L Admitting Unavailable STANDania, ARACELY Cyndee L Attending Unavailable DIONNA, MARK Attending Unavailable MARK VALLADARES Admitting Unavailable TOMAS, [facility] Primary Care Unavailable JACKY TAYLOR Attending Unavailable EMERSON, DEBORHA Referring Unavailable TOMAS, [facility] Primary Care Unavailable DEBORAH GOMEZ Attending Unavailable EMERSON, DEBORAH Referring Unavailable TOMAS, [facility] Primary Care Unavailable EMERSON, DEBORAH Referring Unavailable SYBIL PROCTOR Attending Unavailable TOMAS, [facility] Primary Care Unavailable TOMAS, [facility] Primary Care Unavailable MINERVA ANDERSON Attending Unavailable MINERVA ANDERSON Referring Unavailable TOMAS, [facility] Primary Care Unavailable Dania VÁSQUEZ Attending Unavailable TOMAS, [facility] Primary Care Unavailable MINERVA ANDERSON Referring Unavailable MINERVA ANDERSON Attending Unavailable TOMAS, [facility] Primary Care Unavailable TOMAS, [facility] Primary Care Unavailable MINERVA ANDERSON Attending Unavailable TOMAS, [facility] Primary Care Unavailable MINERVA ANDERSON Referring Unavailable TOMAS, [facility] Primary Care Unavailable MINERVA ANDERSON Attending Unavailable MINERVA ANDERSON Referring Unavailable TOMAS, [facility] Primary Care Unavailable KARI KEY Referring Unavailable TOMAS, [facility] Primary Care Unavailable KARI KEY Referring Unavailable TOMAS, [facility] Primary Care Unavailable HOA GURROLA Attending UnavailMINERVA Shane Referring Unavailable TOMAS, [facility] Primary Care Unavailable EMERSON, DEBORAH Referring Unavailable TOMAS, [facility] Primary Care Unavailable EMERSON, DEBORAH Referring Unavailable TOMAS, [facility] Primary Care Unavailable MINERVA ANDERSON Attending Unavailable MINERVA ANDERSON Referring Unavailable TOMAS, [facility] Primary Care Unavailable DEBORAH NORMAN Referring Unavailable TOMAS, [facility] Primary Care Unavailable MINERVA ANDERSON Referring Unavailable TOMAS, [facility] Primary Care Unavailable MINERVA ANDERSON Referring Unavailable TOMAS, [facility] Primary Care Unavailable MINERVA ANDERSON Referring Unavailable TOMAS, [facility] Primary Care Unavailable MINERVA ANDERSON Referring Unavailable TOMAS, [facility] Primary Care Unavailable MINERVA ANDERSON Referring Unavailable TOMAS, [facility] Primary Care Unavailable TOMAS, [facility] Primary Care Unavailable MINERVA ANDERSON Referring Unavailable TOMAS, [facility] Primary Care Unavailable MINERVA ANDERSON Referring Unavailable TOMAS, [facility] Primary Care Unavailable HOA GURROLA Attending Unavailedson e TOMAS, LORENZO S Primary Care Unavailable MINERVA ANDERSON Referring Unavailable TOMAS, [facility] Primary Care Unavailable DEBORAH NORMAN Attending Unavailable MINERVA ANDERSON Referring Unavailable TOMAS, [facility] Primary Care Unavailable MINERVA ANDERSON Referring Unavailable TOMAS, [facility] Primary Care Unavailable MINERVA ANDERSON Attending Unavailable MINERVA ANDERSON Referring Unavailable TOMAS, [facility] Primary Care Unavailable MINERVA ANDERSON Referring Unavailable TOMAS, [facility] Primary Care Unavailable MINERVA ANDERSON Attending Unavailable MINERVA ANDERSON Referring Unavailable TOMAS, [facility] Primary Care Unavailable MINERVA ANDERSON Referring Unavailable ANDREE HOLLIS Attending Unavailable TOMAS, [facility] Primary Care Unavailable MINERVA ANDERSON Referring Unavailable TOMAS, [facility] Primary Care Unavailable MINERVA ANDERSON Referring Unavailable ANDREE HOLLIS Attending Unavailable TOMAS, [facility] Primary Care Unavailable MINERVA ANDERSON Referring Unavailable TOMAS, [facility] Primary Care Unavailable MINERVA ANDERSON Referring Unavailable TOMAS, [facility] Primary Care Unavailable MINERVA ANDERSON Referring Unavailable TOMAS, [facility] Primary Care Unavailable MINERVA ANDERSON Referring Unavailable TOMAS, [facility] Primary Care Unavailable ANDREE HOLLIS Referring Unavailable TOMAS, [facility] Primary Care Unavailable MINERVA ANDERSON Referring Unavailable TOMAS, [facility] Primary Care Unavailable MINERVA ANDERSON Attending Unavailable MINERVA ANDERSON Referring Unavailable TOMAS, [facility] Primary Care Unavailable TOMAS, [facility] Primary Care Unavailable TOMAS, [facility] Primary Care Unavailable MINERVA ANDERSON Attending Unavailable TOMAS, [facility] Primary Care Unavailable MINERVA ANDERSON Referring Unavailable TOMAS, [facility] Primary Care Unavailable MERT KRUEGER Attending Unavailable ANDREE HOLLIS Referring Unavailable TOMAS, [facility] Primary Care Unavailable MNIERVA ANDERSON Referring Unavailable TOMAS, [facility] Primary Care Unavailable MINERVA ANDERSON Referring Unavailable MINERVA ANDERSON Attending Unavailable TOMAS, [facility] Primary Care Unavailable MINERVA ANDERSON Referring Unavailable TOMAS, [facility] Primary Care Unavailable MINERVA ANDERSON Referring Unavailable TOMAS, [facility] Primary Care Unavailable TOMAS, [facility] Primary Care Unavailable MINERVA ANDERSON Referring Unavailable TOMAS, [facility] Primary Care Unavailable Dania VÁSQUEZ Attending Unavailable TOMAS, [facility] Primary Care Unavailable TOMAS, LORENZO Dailey Primary Care Unavailable TOMAS, [facility] Primary Care Unavailable MINERVA ANDERSON Referring Unavailable LORENZO OLSON Primary Care Unavailable Allergies Allergy Classification Reported Allergen(s) Allergy Type Date of Onset Reaction(s) Facility (1 source) Penicillin; 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: [penicillin] Drug Allergy [facility] Repository Medications Current Medications Medication Drug Class(es) Dates Sig (Normalized) Sig (Original) acetaminophen 325 mg / HYDROcodone bitartrate 5 mg oral tablet (20 sources) Opioid Agonist Start: 04-02-2023 Lafitte 325 mg-5 mg oral tablet 1 tab(s), Oral, q6hr as needed for pain, 10 tab(s), Refill(s) 0, [id number], 188, cm, 04/02/23 10:50:00 EDT, Height/Length Dosing, 100, kg, 04/02/23 10:50:00 EDT, Weight Dosing Start Date: 04/02/23 Status: Ordered Start: 03-18-2023 Lafitte 325 mg-5 mg oral tablet 1 tab(s), Oral, q6hr as needed for pain, 10 tab(s), Refill(s) 0, [facility] #[id number], 188, cm, 03/18/23 10:50:00 EDT, Height/Length Dosing, [...] Oral, Daily, Refills(s) 0, Prophylaxis Start Date: 1/2/20 Status: Ordered take 1 tablet by mouth [...] tablet by mouth once daily azithromycin (ZITHROMAX Z-FRANCISCO) 250 mg tablet Take two (2) tablets [...] Ordered Start: 07-16-2023 take 1 capsule by [facility] every twenty-four hours Gabapentin 100 MG 1 capsule Orally Once a day for 30 day(s) Jun, Active Start: 06-20-2023 End: 07-20-2023 take 1 capsule by mouth once daily at bedtime gabapentin (NEURONTIN) 300 mg capsule Take 1 capsule by mouth daily at bedtime for 30 days. 30 capsule 0 06/20/2023 Active Comment on above: Take 1 capsule by [facility] daily at bedtime for 30 days. glucosamine [...] Refill(s) 0, dissolve in water before taking, [facility], 188, cm, 01/02/22 10:27:00 EDT, Height/Length [...] 07/09/2023 Discontinued take 1 tablet by blake once daily as needed Ondansetron 8 MG 1 tablet on the tongue and allow to dissolve as needed Orally Once a day Active Comment on above: Take 1 tablet by blake every 8 hours as needed for nausea/vomiting. polyethylene glycol 3350 81251 mg powder for oral solution (7 sources) Osmotic Laxative Start: MiraLax oral powder for reconstitution 17 gram, Oral, Daily, 527 gram, Refill(s) 0, dissolve in water before taking, [facility], cm, 01/02/22 10:27:00 EDT, Height/Length Dosing, 112, kg, 01/02/22 10:27:00 EDT, Weight Dosing Start Date: 01/02/22 Status: Ordered potassium citrate 10 meq extended release oral tablet (13 sources) Start: End: take 1 tablet by mouth twice daily potassium CITRATE 10 mEq ER Tab 10 mEq, 1 tab(s), Oral, BID, 180 tab(s), Refill(s) 3, [facility], 188, cm, 09/28/21 13:33:00 EST, Height/Length Dosing, 112.4, kg, 09/28/21 13:33:00 EST, Weight Dosing Start Date: 09/28/21 Status: Ordered Start: 09-28-2021 take 1 tablet by [facility] twice daily potassium CITRATE 10 mEq ER Tab 10 mEq, 1 tab(s), Oral, BID, 180 tab(s), Refill(s) 3, [facility], 188, cm, 09/28/21 13:33:00 [...] days., # 45 tab(s), Refills(s) 0, [facility]: [id number], 188, cm, 04/02/23 10:50:00 EDT, Height/Length Dosing, 1... Start Date: 04/02/23 Status: Ordered Start: 09-28-2022 take 5 tablets by mo uth once daily, then take 4 tablets by [...] days., # 45 tab(s), Refills(s) 0, Pharmacy: [facility]/pharmacy #[id number], 187.6, cm, 08/20/22 7:01:00 EDT, Height/Length [...] # 42 tab(s), Refills(s) 1, Pharmacy: [facility], 189, cm, 05/31/22 10:57:00 EDT, Height/Length Dosing,... Start Date: 07/09/22 Status: Ordered Start: 04-05-2022 predniSONE 10 mg Tab See Instructions, 6 tabs for 2 days,5 tabs for 2 days,4 tabs for 2 days,3 tabs for 2 days,2 tabs for 2 days,1 tab for 2 days, # 42 tab(s), Refills(s) 0, Pharmacy: [facility], 189, cm, 04/03/22 10:57:00 EDT, Height/Length Dosing, 110, k... Start Date: 04/05/22 Status: Ordered Start: 01-02-2022 End: 04-02-2022 take 1 tablet by mouth once daily predniSONE 5 mg Tab 5 mg = 1 tab(s), Oral, Daily, X 30 day(s), # 30 tab(s), Refills(s) 2, Pharmacy: [id number], 188, cm, 01/02/22 10:27:00 EDT, Height/Length Dosing, 112, kg, 01/02/22 10:27:00 EDT, Weight Dosing Start Date: 01/02/22 Stop Date: 04/02/22 Status: Ordered Comment on above: 5 mg. Take 5 mg by mouth o nce daily. prochlorperazine 10 mg oral tablet (20 sources) Phenothiazine Start: End: prochlorperazine 10 mg Tab Refills(s) 0 Start [...] 9 days. Take 1 tablet by blake daily with dinner. TAKE ONE TABLET BY M OUTH DAILY WITH DINNER sildenafil 20 mg oral tablet (13 sources) Phosphodiesterase 5 Inhibitor Start: End: sildenafil 20 mg oral tablet See Instructions, Take 2 to 5 tablets po prior to sexual activity, # 30 tab(s), Refills(s) 2, Pharmacy: [id number], 188, cm, 01/02/22 10:27:00 EDT, Height/Length Dosing, 112, kg, 01/02/22 10:27:00 EDT, Weight Dosing Start Date: 01/02/22 Status: Ordered Comment on above: Take 20 mg by mouth as needed. tadalafil 20 mg oral tablet (11 sources) Phosphodiesterase 5 Inhibitor Start: Cialis 20 mg Tab See Instructions, PRN for erectile dysfunction, 1 tab(s) Oral 30-60 mins prior to intercourse. do not exceed 1 tab/24 hrs., # 15 tab(s), Refills(s) 6, Pharmacy: [id number], 188, cm, 10/24/22 10:33:00 EST, Height/Length Dosing, 112, kg, 10/24/22 10:33:00 EST, Weight Dosing Start Date: 10/24/22 Status: Ordered tamsulosin hydrochloride 0.4 mg oral capsule (20 sources) alpha-Adrenergic Taina Start: take 1 capsule by mouth twice daily Flomax 0.4 mg Cap 0.4 mg = 1 cap(s), Oral, BID, # 180 cap(s), Refills(s) 3, Pharmacy: [facility], 188, cm, 05/07/23 13:45:00 EDT, Height/Length Dosing, 109, kg, 05/07/23 13:45:00 EDT, Weight Dosing Start Date: 05/19/23 Status: Ordered take 1 capsule by mo [facility] every twenty-four hours Tamsulosin HCl 0.4 MG [...] Start: 06-21-2021 take 1 tablet by blake th twice daily Eliquis 2.5 mg oral tablet 2.5 mg = 1 tab(s), Oral, BID, # 60 tab(s), Refills(s) 11, Pharmacy: [facility] [id number] [facility], 187, cm, 06/20/21 9:10:00 EDT, Height/Length Dosing, 109.2, kg, 06/20/21 9:10:00 EDT, Weight Dosing Start Date: 06/21/21 Status: Ordered Start: 07-08-2018 End: 10-02-2022 ELIQUIS 5 mg tab(s) Start: 07-08-2018 take 2 tablets by mo ut twice daily, then take 1 tablet by [...] food on days of radiation only (Mon-Fri). 80 tablet 2 10/02/2022 Active Comment on above: Take 4 tablets (2,00 0 mg) by mouth twice daily. Take 4 tablets (2,00 0 mg) by mouth twice daily with food on days of radiation only (Mon-Fri). carvedilol 6.25 mg oral tablet (20 sources) [...] procedure, # 2 tab(s), Refills(s) 0, Pharmacy: [facility] #[id number], 188, cm, 05/07/23 13:45:00 EDT, Height/Length Dosing, 109, kg, 05/07/23 13:45:00 EDT, Weight Dosing Start Date: 05/16/23 Status: Ordered glucosamine/latoya Abraham sod (GLUCOSAMINE-CHONDROITIN) 1,500-1,200 mg/30 mL liqd (20 sources) glucosamine/yaa dr perez A sod (GLUCOSAMINE-CHONDROITIN ) 1,500-1,200 mg/30 mL liqd [...] day(s), # 28 supp, Refills(s) 0, Pharmacy: [facility] #[id number], 189, cm, 08/06/22 13:04:00 EDT, Height/Length Dosing, [...] release oral tablet (15 sources) Start: 04-17-20 End: 07-09-20 take 1 tablet by mouth once daily potassium chloride (K-TAB) 10 mEq tablet Take 1 tablet by mouth once daily. 30 tablet 1 05/06/2023 07/09/2023 Discontinued Comment on above: Take 1 tablet by blake th once daily. spironolactone 25 mg oral tablet (19 sources) Aldosterone Antagonist Start: 04-05-20 End: 09-20-20 spironolactone (ALDACTONE) 25 mg tablet q 24 HR. 0 04/05/2021 09/20/2022 Discontinued (Course of therapy completed) Start: 04-05-2021 take 1 tablet by blake th once daily spironolactone 25 mg Tab 25 mg, Oral, Daily, # 90 tab(s), Refills(s) 3, Pharmacy: [facility], 187, cm, 03/09/21 13:13:00 EDT, Height/Length Dosing, 110, kg, 03/09/21 13:13:00 EDT, Weight Dosing Start Date: 04/05/21 [...] current use of drug therapy; 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: [Other senior living (current) drug therapy] Episodic Other aftercare (4 [...] 02-04-2023 08-19-2022 Episodic Other aftercare (1 source) residential (current) use of anticoagulants; 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: [[facility] CURRNT USE ANTICOAGULANTS] Onset: 04-05-2021 Episodic Other aftercare (1 source) Other senior living (current) drug therapy; 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: [[facility] CURRENT DRUG THERAPY] Onset: 04-05-2021 Episodic Other [...] Test Name Value Interpretation Reference Range Facility CBC W Auto Differential pane l (Bld)on 11-21-2023 Basophils (Bld) [#/Vol] 0.06 10*3/uL Normal <0.11 [facility] Comment on above: Order Comment: Speci men Type: BLOOD SPECIMENOrdering Facility: [facility] Address: [address] [place] [address] Performed By: #### 5 7021-8 ####[facility] LABCLIA [id number] [place] [address] Basophils/100 WBC (Bld) 0.8 % Normal [facility] Comment on above: Order Comment: Speci men Type: BLOOD SPECIMENOrdering Facility: [facility] Address: [address] [place] [address] Performed By: #### 5 7021-8 ####[facility] LABCLIA [id number] [place] [address] Differential cell count method Nom (Bld) Auto Normal [facility] Comment on above: Order Comment: Speci men Type: BLOOD SPECIMENOrdering Facility: [facility] Address: [address] [place] [address] Performed By: #### 5 7021-8 ####[facility] LABCLIA [id number] [place] [address] Eosinophils (Bld) [#/Vol] 0.16 10*3/uL Normal <0.46 [facility] Comment on above: Order Comment: Speci men Type: BLOOD SPECIMENOrdering Facility: [facility] Address: [address] [place] [address] Performed By: #### 5 7021-8 ####[facility] LABCLIA [id number] [place] [address] Eosinophils/100 WBC (Bld) 2.1 % Normal [facility] Comment on above: Order Comment: Speci men Type: BLOOD SPECIMENOrdering Facility: [facility] Address: [address] [place] [address] Performed By: #### 5 7021-8 ####[facility] LABCLIA [id number] [place] [address] Erythrocyte distribution width (RBC) [Ratio] 15.8 % High 11.5-15.0 [facility] Comment on above: Order Comment: Speci men Type: BLOOD SPECIMENOrdering Facility: [facility] Address: [address] [place] [address] Performed By: #### 5 7021-8 ####[facility] LABCLIA [id number] [place] [address] Hematocrit (Bld) [Volume fraction] 38.2 % Low 39.0-51.0 [facility] Comment on above: Order Comment: Speci men Type: BLOOD SPECIMENOrdering Facility: [facility] Address: [address] [place] [address] Performed By: #### 5 7021-8 ####[facility] LABCLIA [id number] [place] [address] Hemoglobin (Bld) [Mass/Vol] 12.4 g/dL Low 13.0-17.0 [facility] Comment on above: Order Comment: Speci men Type: BLOOD SPECIMENOrdering Facility: [facility] Address: [address] [place] [address] Performed By: #### 5 7021-8 ####[facility] LABCLIA [id number] [place] [address] Immature granulocytes (Bld) [#/Vol] 0.03 10*3/uL Normal <0.10 [facility] Comment on above: Order Comment: Speci men Type: BLOOD SPECIMENOrdering Facility: [facility] Address: [address] [place] [address] Performed By: #### 5 7021-8 ####[facility] LABCLIA [id number] [place] [address] Immature granulocytes/100 WBC (Bld) 0.4 % Normal [facility] Comment on above: Order Comment: Speci men Type: BLOOD SPECIMENOrdering Facility: [facility] Address: [address] [place] [address] Performed By: #### 5 7021-8 ####[facility] LABCLIA [id number] [place] [address] Lymphocytes (Bld) [#/Vol] 0.91 10*3/uL Low 1.00-4.00 [facility] Comment on above: Order Comment: Speci men Type: BLOOD SPECIMENOrdering Facility: [facility] Address: [address] [place] [address] Performed By: #### 5 7021-8 ####[facility] LABCLIA [id number] [place] [address] Lymphocytes/100 WBC (Bld) 11.9 % Normal [facility] Comment on above: Order Comment: Speci men Type: BLOOD SPECIMENOrdering Facility: [facility] Address: [address] [place] [address] Performed By: #### 5 7021-8 ####[facility] LABCLIA [id number] [place] [address] MCH (RBC) [Entitic mass] 31.2 pg Normal 26.0-34.0 [facility] Comment on above: Order Comment: Speci men Type: BLOOD SPECIMENOrdering Facility: [facility] Address: [address] [place] [address] Performed By: #### 5 7021-8 ####[facility] LABCLIA [id number] [place] [address] MCHC (RBC) [Mass/Vol] 32.5 g/dL Normal 30.5-36.0 [facility] Comment on above: Order Comment: Speci men Type: BLOOD SPECIMENOrdering Facility: [facility] Address: [address] [place] [address] Performed By: #### 5 7021-8 ####[facility] LABCLIA [id number] [place] [address] MCV (RBC) [Entitic vol] 96.0 fL Normal 80.0-100.0 [facility] Comment on above: Order Comment: Speci men Type: BLOOD SPECIMENOrdering Facility: [facility] Address: [address] [place] [address] Performed By: #### 5 7021-8 ####[facility] LABCLIA [id number] [place] [address] Monocytes (Bld) [#/Vol] 0.74 10*3/uL Normal <0.87 [facility] Comment on above: Order Comment: Speci men Type: BLOOD SPECIMENOrdering Facility: [facility] Address: [address] [place] [address] Performed By: #### 5 7021-8 ####[facility] LABCLIA [id number] [place] [address] Monocytes/100 WBC (Bld) 9.7 % Normal [facility] Comment on above: Order Comment: Speci men Type: BLOOD SPECIMENOrdering Facility: [facility] Address: [address] [place] [address] Performed By: #### 5 7021-8 ####[facility] LABCLIA [id number] [place] [address] Neutrophils (Bld) [#/Vol] 5.73 10*3/uL Normal 1.45-7.50 [facility] Comment on above: Order Comment: Speci men Type: BLOOD SPECIMENOrdering Facility: [facility] Address: [address] [place] [address] Performed By: #### 5 7021-8 ####[facility] LABCLIA [id number] [place] [address] Neutrophils/100 WBC (Bld) 75.1 % Normal [facility] Comment on above: Order Comment: Speci men Type: BLOOD SPECIMENOrdering Facility: [facility] Address: [address] [place] [address] Performed By: #### 5 7021-8 ####[facility] LABCLIA [id number] [place] [address] Nucleated RBC (Bld) [#/Vol] 10*3/uL Normal <0.01 [facility] Comment on above: Order Comment: Speci men Type: BLOOD SPECIMENOrdering Facility: [facility] Address: [address] [place] [address] Performed By: #### 5 7021-8 ####[facility] LABCLIA [id number] [place] [address] Nucleated RBC/100 WBC (Bld) [Ratio] 0.0 /100 WBC Normal [facility] Comment on above: Order Comment: Speci men Type: BLOOD SPECIMENOrdering Facility: [facility] Address: [address] [place] [address] Performed By: #### 5 7021-8 ####[facility] LABCLIA [id number] [place] [address] Platelet mean volume (Bld) [Entitic vol] 9.9 fL Normal 9.0-12.7 [facility] Comment on above: Order Comment: Speci men Type: BLOOD SPECIMENOrdering Facility: [facility] Address: [address] [place] [address] Performed By: #### 5 7021-8 ####[facility] LABCLIA [id number] [place] [address] Platelets (Bld) [#/Vol] 182 10*3/uL Normal 150-400 [facility] Comment on above: Order Comment: Speci men Type: BLOOD SPECIMENOrdering Facility: [facility] Address: [address] [place] [address] Performed By: #### 5 7021-8 ####[facility] LABCLIA [id number] [place] [address] RBC (Bld) [#/Vol] 3.98 10*6/uL Low 4.20-6.00 [facility] Comment on above: Order Comment: Speci men Type: BLOOD SPECIMENOrdering Facility: [facility] Address: [address] [place] [address] Performed By: #### 5 7021-8 ####[facility] LABCLIA [id number] [place] [address] WBC (Bld) [#/Vol] 7.63 10*3/uL Normal 3.70-11.00 [facility] Comment on above: Order Comment: Speci men Type: BLOOD SPECIMENOrdering Facility: [facility] Address: [address] [place] [address] Performed By: #### 5 7021-8 ####[facility] LABCLIA [id number] [place] [address] CEA SerPl-mCncon 11-21-2023 Carcinoembryonic Ag [Mass/Vol] 1.8 ng/mL Normal <=2.9 [facility] Comment on above: Order Comment: Speci men Type: BLOOD SPECIMENOrdering Facility: [facility] Address: [address] [place] [address] Result Comment: Carc inoembryonic antigen test is used as an aid in monitoring response to treatment or recurrence in patients with established colorectal, breast, lung, prostatic, pancreatic, and ovarian carcinomas. Clinical correlation is required.The Carcinoembryonic antigen test was performed using the [employer] DXI paramagnetic particle chemiluminescent immunoassay method. Results obtained with different assay methods or kits cannot be used interchangeably. Performed By: #### 2 039-6 ####[facility] LABCLIA [id number] [address] [place] [id number] [address] [place] CNOVSPon 11-21-2023 CNOVSP Normal [facility] Comprehensive metabolic 2000 panelon 11-21-2023 Albumin [Mass/Vol] 3.7 g/dL Low 3.9-4.9 [facility] Comment on above: Order Comment: Speci men Type: BLOOD SPECIMENOrdering Facility: [facility] Address: [address] [place] [address] Performed By: #### 2 4323-8 ####[facility] LABCLIA [id number] [place] [address] ALP [Catalytic activity/Vol] 85 U/L Normal 38-113 [facility] Comment on above: Order Comment: Speci men Type: BLOOD SPECIMENOrdering Facility: [facility] Address: [address] [place] [address] Performed By: #### 2 4323-8 ####[facility] LABCLIA [id number] [place] [address] ALT [Catalytic activity/Vol] 11 U/L Normal 10-54 [facility] Comment on above: Order Comment: Speci men Type: BLOOD SPECIMENOrdering Facility: [facility] Address: [address] [address] Performed By: #### 2 4323-8 ####[facility] LABIA [id number] [place] [address] Anion gap [Moles/Vol] 9 mmol/L Normal 9-18 [facility] Comment on above: Order Comment: Speci men Type: BLOOD SPECIMENOrdering Facility: [facility] Address: [address] [place] [address] Performed By: #### 2 4323-8 ####[facility] LABCLIA [id number] [place] [address] AST [Catalytic activity/Vol] 14 U/L Normal 14-40 [facility] Comment on above: Order Comment: Speci men Type: BLOOD SPECIMENOrdering Facility: [facility] Address: [address] [place] [address] Performed By: #### 2 4323-8 ####[facility] LABCLIA [id number] [place] [address] Bilirubin [Mass/Vol] 0.3 mg/dL Normal 0.2-1.[address] [facility] Comment on above: Order Comment: Speci men Type: BLOOD SPECIMENOrdering Facility: [facility] Address: [address] [place] [address] Performed By: #### 2 4323-8 ####[facility] LABCLIA [id number] [place] [address] Calcium [Mass/Vol] 9.2 mg/dL Normal 8.5-10.2 [facility] Comment on above: Order Comment: Speci men Type: BLOOD SPECIMENOrdering Facility: [facility] Address: [address] [place] [address] Performed By: #### 2 4323-8 ####[facility] LABCLIA [id number] [place] [address] Chloride [Moles/Vol] 109 mmol/L High 97-[address] [facility] Comment on above: Order Comment: Speci men Type: BLOOD SPECIMENOrdering Facility: [facility] Address: [address] [place] [address] Performed By: #### 2 4323-8 ####[facility] LABCLIA [id number] [place] [address] CO2 [Moles/Vol] 26 mmol/L Normal 22-30 [facility] Comment on above: Order Comment: Speci men Type: BLOOD SPECIMENOrdering Facility: [facility] Address: [address] [address] Performed By: #### 2 4323-8 ####[facility] LABCLIA [id number] [place] [address] Creatinine [Mass/Vol] 1.09 mg/dL Normal 0.73-1.22 [facility] Comment on above: Order Comment: Speci men Type: BLOOD SPECIMENOrdering Facility: [facility] Address: [address] [place] [address] Performed By: #### 2 4323-8 ####[facility] LABCLIA [id number] [place] [address] Creatinine and Glomerular filtration rate.predicted panel (S/P/Bld) 73 mL/min/1.73m??? Normal >=60 [facility] Comment on above: Order Comment: Speci men Type: BLOOD SPECIMENOrdering Facility: [facility] Address: [address] [place] [address] Result Comment: Rebekah mated Glomerular Filtration Rate [...] actual GFR. Performed By: #### 2 4323-8 ####[facility] LABIA [id number] [place] [address] Glucose [Mass/Vol] 124 mg/dL High 74-99 [facility] Comment on above: Order Comment: Nazario brooks Type: BLOOD SPECIMENOrdering Facility: [facility] Address: [address] [place], [place] [id number] Result Comment: The [employer] Diabetes Association (ADA) provides guidance for cutoff [...] Standards of Medical Care in Diabetes 2016, [employer] Diabetes Association. Diabetes Care. 2016.39(Suppl 1). Performed By: #### 2 4323-8 ####[facility] LABCLIA [id number] [place] [address] Potassium [Moles/Vol] 3.6 mmol/L Low 3.7-5.1 [facility] Comment on above: Order Comment: Speci men Type: BLOOD SPECIMENOrdering Facility: [facility] Address: [address] [place] [address] Performed By: #### 2 4323-8 ####[facility] LABCLIA [id number] [place] [address] Protein [Mass/Vol] 6.0 g/dL Low 6.3-8.0 [facility] Comment on above: Order Comment: Speci men Type: BLOOD SPECIMENOrdering Facility: [facility] Address: [address] [place] [address] Performed By: #### 2 4323-8 ####[facility] LABCLIA [id number] [place] [address] Sodium [Moles/Vol] 144 mmol/L Normal 136-144 [facility] Comment on above: Order Comment: Speci men Type: BLOOD SPECIMENOrdering Facility: [facility] Address: [address] [place] [address] Performed By: #### 2 4323-8 ####[facility] LABCLIA [id number] [place] [address] Urea nitrogen [Mass/Vol] 17 mg/dL Normal 9-24 [facility] Comment on above: Order Comment: Speci men Type: BLOOD SPECIMENOrdering Facility: [facility] Address: [address] [place] [address] Performed By: #### 2 4323-8 ####[facility] LABCLIA [id number] [place] [address] ANES POSTPROC EVALon 024 ANES POSTPROC EVAL HNO ID: [id number] Author: REX LIZAMA MD Service: Anesthesiology Author Type: Physician Type: Anesthesia Postprocedure Evaluation Filed: 11/05/2023 10:41 Note Text: POST ANESTHESIA EVALUATION NOTE : 1950 Procedure Summary Date: 11/05/23 Room / Location: Procedures Anesthesia Start: 53 Anesthesia Stop: 1011 Procedure: SIGMOIDOSCOPY Diagnosis: Encounter for follow-up surveillance of rectal cancer (High risk colon cancer surveillance: Personal history of rectal cancer) Scheduled Providers: Deborah Norman MD; Rex Lizama MD; Jacky Taylor APRN.CAT SITTER Responsible Provider: Rex Lizama MD Anesthesia Type: [...] November 05, 2023 TIME: 10:40 AM CSN: [id number] [facility] ANES PRE-OPon 11-05-2023 ANES PRE-OP HNO ID: [id number] Author: REX LIZAMA MD Service: Anesthesiology Author Type: Physician Type: Anesthesia Preprocedure Evaluation Filed: 11/05/2023 09:31 Note Text: ANESTHESIOLOGY DAY OF SURGERY NOTE : 1950 Procedure Information Date/Time: 11/05/23929 Scheduled providers: Deborah Norman MD; Rex Lizama MD; Jacky Taylor APRN.CAT SITTER Procedure: SIGMOIDOSCOPY Location: Procedures Estimated body mass [...] none. Vitals Value Taken Time BP 127/91 11/05/2320 Pulse Resp 16 11/05/23919 Temp 36.1 ?C (97 ?F) 11/05/23919 SpO2 98 % 11/05/23919 Outpatient Medications as of 11/05/2023 Medication Sig [...] November 05, 2023 TIME: 9:29 AM CSN: [id number] Normal [facility] Flexible Sigmoidoscopyon Flexible sigmoidoscopy [facility] Gastrointestinal Endoscopy Patient Name: Mervat Damon Procedure Date: 11/05/2023 9:46 AM Date of : 1950 Admit Type: Outpatient Age: 73 Room: [place] [address] Gender: Male Note Status: Finalized Attending MD: [...] for surveillance. Procedure Code(s): --- Professional --- 66554, Sigmoidoscopy, flexible; with biopsy, single or multiple CPT copyright 2020 [employer]. All rights reserved. The codes documented in this report are preliminary and upon certified medical coder review may be revised to meet [...] Loss: Estimated blood loss was minimal. Normal [facility] HISTORY PHYSICALon HISTORY PHYSICAL HNO ID: [id number] Author: DEBORAH NORMAN MD Service: Colorectal Author [...] ENDOSCOPY HISTORY AND PHYSICAL EXAM Mervat Damon [id number] Subjective HPI: Mervat Damon is a 72 [...] Anesthesia Prabhu Jacobs MD 11/05/2023 9:44 AM [facility] SURGICAL PATHOLOGYon 024 CASE REPORT [facility] Comment on above: Order Comment: Speci men Type: TISSUE SPECIMENOrdering Facility: [facility] Address: [address] [place] [address] Result Comment: Surg ica Pathology Report Case: [id number] Authorizing Provider: Deborah Norman MD Collected: 11/05/2023 10:06 AM Ordering Location: Procedures Received: 11/05/2023 10:33 AM Pathologist: Vinicius Beebe MD Specimens: A) - RECTAL POLYP B) - ANAL CANAL BIOPSY, Anal polyp Performed By: #### S ####[facility] LABCLIA [id number] [address] FINAL DIAGNOSIS [facility] Comment on above: Order Comment: Speci men Type: TISSUE SPECIMENOrdering Facility: [facility] Address: [address] [place] [address] Result Comment: A. R ectum, polypectomy: - Colonic mucosa with mild architectural distortion. B. Anal canal, polypectomy: - Polypoid squamous mucosa. Performed By: #### S ####[facility] LABCLIA [id number] [address] FINAL PERFORMING LAB [facility] Comment on above: Order Comment: Speci men Type: TISSUE SPECIMENOrdering Facility: [facility] Address: [address] [place] [address] Result Comment: Diag nostic interpretation performed at [facility], [facility] [place] [address] CLIA# [id number] Biostatistics Manager: Pineda Conti M.D. Performed By: #### S ####[facility] LABIA [id number] [place] [address] [place] GROSS DESCRIPTION A. RECTAL POLYP [facility] Comment on above: Order Comment: Speci men Type: TISSUE SPECIMENOrdering Facility: [facility] Address: [address] [place] [address] Result Comment: Rece ived in formalin are [...] in one cassette. Gross examination performed at [facility], [address] [place] [address] 11/05/2023 4:24 PM Performed By: #### S ####[facility] [id number] [place] [address] [place] Consent for Procedure/Surger yon 10-24-2023 Consent for Procedure/Surgery [id number]#1.00T IFF Normal [facility] Consent for Procedure/Surgery [id number]#1.00T IFF Normal [facility] IntraOperative Documentson 0 10-24-2023 IntraOperative Documents [id number]#1.00T IFF Normal [facility] CNPNon 10-22-2023 CNPN Normal [facility] Office/Clinic Note-Physician on 10-10-2023 Office/Clinic Note-Physician [id number]#1.00 TIFF Normal [facility] Consent for Treatmenton 09-21 Consent for Treatment [id number]#1.00 TIFF Normal [facility] Consultation Noteon 10-09-20 Consultation Note Patient: [...] hrs., # 15 tab(s), Refills(s) 6, Pharmacy: [facility] #[id number], 188, cm, 10/24/22 10:33:00 EST, Height/Length Dosing, 112, kg, 10/24/22 1... Flomax 0.4 mg Cap: 0.4 mg = 1 cap(s), Oral, BID, # 180 cap(s), Refills(s) 3, Pharmacy: [facility], 188, cm, 05/07/23 13:45:00 EDT, Height/Length Dosing, 109, kg, 05/07/23 13:45:00 EDT, Weight Dosing carvedilol 6.25 mg Tab: 6.25 mg = 1 tab(s), Oral, BID, # 180 tab(s), Refills(s) 3, [facility]: [facility] #[id number], 188, cm, 04/29/23 8:41:00 EDT, Height/Length Dosing, 106.8, kg, 04/29/23 8:41:00 EDT, Weight Dosing cyclobenzaprine 10 mg Tab: 10 mg = 1 tab(s), Oral, TID, PRN for spasm, # 20 tab(s), Refills(s) 0, [facility]: [id number], 188, cm, 03/18/23 10:50:00 EDT, Height/Length Dosing, 111, kg, 03/18/23 10:50:00 EDT, Weight Dosing finasteride 5 mg Tab: 5 mg = 1 tab(s), Oral, Daily, X 90 day(s), # 90 tab(s), Refills(s) 3, Pharmacy: [facility], 188, cm, 10/24/22 10:33:00 EST, Height/Length Dosing, 112, kg, 10/24/22 10:33:00 EST, Weight Dosing hydrochlorothiazide 12.5 mg Cap: 12.5 mg = 1 cap(s), Oral, Daily, # 90 cap(s), Refills(s) 3, [facility]: [facility] #[id number], 188, cm, 04/29/23 8:41:00 EDT, Height/Length Dosing, 106.8, kg, 04/29/23 8:41:00 EDT, Weight Dosing valsartan 80 mg Tab: 80 mg = 1 tab(s), Oral, Daily, # 90 tab(s), Refills(s) 3, Pharmacy: [facility] #[id number], 188, cm, 04/29/23 8:41:00 EDT, Height/Length Dosing, [...] list: All Problems Hamm[place]oe / SNOMED CT 964295966 / Confirmed Inguinal hernia, right / SNOMED CT 358183398 / Confirmed Bulging of cervical intervertebral disc / SNOMED CT 9447199915 / Confirmed RA - Rheumatoid arthritis / SNOMED CT 9146061130 / Confirmed Cervical spinal stenosis / SNOMED CT 927769622 / Confirmed BPH with urinary obstruction / SNOMED CT 5249058239 / Confirmed Non-ischemic cardiomyopathy / SNOMED CT 733479680 / Confirmed BMI 31.0-31.9,adult / SNOMED CT 778465831 / Confirmed Tobacco non-user / SNOMED CT 899694501 / Confirmed Erectile dysfunction / SNOMED CT 0791569512 / Confirmed Rectal cancer / SNOMED CT 275776884 / Confirmed Neck pain without injury / SNOMED CT 493826236 / Confirmed Canceled: Arthritis, rheumatoid / SNOMED CT 098354441 Canceled: Kidney stones / SNOMED CT 108DP431-R615-2063-V4F5 -8T22E80XPQ39 Canceled: Acute pulmonary embolism / SNOMED CT 9418249140 Canceled: Frequent episodes of bronchitis and pneumonia / SNOMED CT 212614673 Canceled: Nocturia / SNOMED CT 655551499 Canceled: Arthritis / SNOMED CT 7263278 Canceled: Left lower quadrant abdominal pain / SNOMED CT 077409329 Canceled: Shingles rash / SNOMED CT 3923838 Canceled: Hip pain, left / SNOMED CT 57185483 Canceled: Pneumonia / SNOMED CT 427747833 Canceled: History of blood clots / SNOMED CT 455436997 Canceled: Weak urine stream / SNOMED CT 848358010 Canceled: Rotator cuff syndrome of right shoulder / SNOMED CT 5620811 Canceled: Impingement syndrome of right shoulder region / SNOMED CT 184192012 Canceled: Left wrist pain / SNOMED CT 67816749 Canceled: Right ankle pain / SNOMED CT 133588851 Canceled: BMI 31.0-31.9,adult / SNOMED CT 155275777 Canceled: Rash and other nonspecific skin eruption / SNOMED CT 935923522 Canceled: Lower respiratory tract infection / SNOMED C (more content not included)... Normal [facility] Comment on above: Result Comment: Elec tronically Signed By: Cyndee Torres PA-C\.br\Date and Time Signed: 10/09/23 13:28 EST\.br\Electronically Co-Signed By: Reese Reid DO\.br\Date and Time Co-Signed: 10/10/23 08:26 EST Office/Clinic Note-Nurseon 1 12-10-2022 Office/Clinic Note-Nurse [id number]#1.00 TIFF Normal [facility] Office/Clinic Note-Physician on 10-09-2023 Office/Clinic Note-Physician [id number]#1.00 TIFF Normal [facility] Patient Correspondenceon Patient Correspondence [id number]#1.00 TIFF Normal [facility] Patient Correspondence [id number]#1.00 TIFF Normal [facility] Patient History Officeon Patient History Office [id number]#1.00 TIFF Normal [facility] Radiology Outside Office [employer] yon 10-07-2023 Radiology Outside Office Copy [id number]#1.00 TIFF Normal [facility] CEA SerPl-mCncon 09-05-2023 Carcinoembryonic Ag [Mass/Vol] 1.8 ng/mL Normal <=2.9 [facility] Comment on above: Order Comment: Speci men Type: BLOOD SPECIMENOrdering Facility: [facility] Address: [address] [place] [address] Result Comment: Carc inoembryonic antigen test is used as an aid in monitoring response to treatment or recurrence in patients with established colorectal, breast, lung, prostatic, pancreatic, and ovarian carcinomas. Clinical correlation is required.The Carcinoembryonic antigen test was performed using the [employer] Un[employer]el DXI paramagnetic particle chemiluminescent immunoassay method. Results obtained with different assay methods or kits cannot be used interchangeably. Performed By: #### 2 039-6 ####[facility] LABCLIA [id number] [place] [address] [place] CBC W Auto Differential pane l (Bld)on 08-27-2023 Basophils (Bld) [#/Vol] 0.06 10*3/uL Normal <0.11 [facility] Comment on above: Order Comment: Speci men Type: BLOOD SPECIMENOrdering Facility: [facility] Address: [address] [place] [address] Performed By: #### 5 7021-8 ####[facility] LABIA [id number] [place] [address] Basophils/100 WBC (Bld) 0.9 % Normal [facility] Comment on above: Order Comment: Speci men Type: BLOOD SPECIMENOrdering Facility: [facility] Address: [address] [place] [address] Performed By: #### 5 7021-8 ####[facility] LABCLIA [id number] [place] [address] Differential cell count method Nom (Bld) Auto Normal [facility] Comment on above: Order Comment: Speci men Type: BLOOD SPECIMENOrdering Facility: [facility] Address: [address] [place] [address] Performed By: #### 5 7021-8 ####[facility] LABCLIA [id number] [place] [address] Eosinophils (Bld) [#/Vol] 0.22 10*3/uL Normal <0.46 [facility] Comment on above: Order Comment: Speci men Type: BLOOD SPECIMENOrdering Facility: [facility] Address: [address] [place] [address] Performed By: #### 5 7021-8 ####[facility] LABCLIA [id number] [place] [address] Eosinophils/100 WBC (Bld) 3.2 % Normal [facility] Comment on above: Order Comment: Speci men Type: BLOOD SPECIMENOrdering Facility: [facility] Address: [address] [place] [address] Performed By: #### 5 7021-8 ####[facility] LABCLIA [id number] [place] [address] Erythrocyte distribution width (RBC) [Ratio] 15.5 % High 11.5-15.0 [facility] Comment on above: Order Comment: Speci men Type: BLOOD SPECIMENOrdering Facility: [facility] Address: [address] [place] [address] Performed By: #### 5 7021-8 ####[facility] LABCLIA [id number] [place] [address] Hematocrit (Bld) [Volume fraction] 41.2 % Normal 39.0-51.0 [facility] Comment on above: Order Comment: Speci men Type: BLOOD SPECIMENOrdering Facility: [facility] Address: [address] [place] [address] Performed By: #### 5 7021-8 ####[facility] LABCLIA [id number] [place] [address] Hemoglobin (Bld) [Mass/Vol] 13.4 g/dL Normal 13.0-17.0 [facility] Comment on above: Order Comment: Speci men Type: BLOOD SPECIMENOrdering Facility: [facility] Address: [address] [place] [address] Performed By: #### 5 7021-8 ####[facility] LABCLIA [id number] [place] [address] Immature granulocytes (Bld) [#/Vol] 10*3/uL Normal <0.10 [facility] Comment on above: Order Comment: Speci men Type: BLOOD SPECIMENOrdering Facility: [facility] Address: [address] [place] [address] Performed By: #### 5 7021-8 ####[facility] LABCLIA [id number] [place] [address] Immature granulocytes/100 WBC (Bld) 0.3 % Normal [facility] Comment on above: Order Comment: Speci men Type: BLOOD SPECIMENOrdering Facility: [facility] Address: [address] [place] [address] Performed By: #### 5 7021-8 ####[facility] LABCLIA [id number] [place] [address] Lymphocytes (Bld) [#/Vol] 0.85 10*3/uL Low 1.00-4.00 [facility] Comment on above: Order Comment: Speci men Type: BLOOD SPECIMENOrdering Facility: [facility] Address: [address] [place] [address] Performed By: #### 5 7021-8 ####[facility] LABCLIA [id number] [place] [address] Lymphocytes/100 WBC (Bld) 12.4 % Normal [facility] Comment on above: Order Comment: Speci men Type: BLOOD SPECIMENOrdering Facility: [facility] Address: [address] [place] [address] Performed By: #### 5 7021-8 ####[facility] LABIA [id number] [place] [address] MCH (RBC) [Entitic mass] 31.1 pg Normal 26.0-34.0 [facility] Comment on above: Order Comment: Speci men Type: BLOOD SPECIMENOrdering Facility: [facility] Address: [address] [place] [address] Performed By: #### 5 7021-8 ####[facility] LABCLIA [id number] [place] [address] MCHC (RBC) [Mass/Vol] 32.5 g/dL Normal 30.5-36.0 [facility] Comment on above: Order Comment: Speci men Type: BLOOD SPECIMENOrdering Facility: [facility] Address: [address] [place] [address] Performed By: #### 5 7021-8 ####[facility] LABCLIA [id number] [place] [address] MCV (RBC) [Entitic vol] 95.6 fL Normal 80.0-100.0 [facility] Comment on above: Order Comment: Speci men Type: BLOOD SPECIMENOrdering Facility: [facility] Address: [address] [place] [address] Performed By: #### 5 7021-8 ####[facility] LABCLIA [id number] [place] [address] Monocytes (Bld) [#/Vol] 0.60 10*3/uL Normal <0.87 [facility] Comment on above: Order Comment: Speci men Type: BLOOD SPECIMENOrdering Facility: [facility] Address: [address] [place] [address] Performed By: #### 5 7021-8 ####[facility] LABCLIA [id number] [place] [address] Monocytes/100 WBC (Bld) 8.8 % Normal [facility] Comment on above: Order Comment: Speci men Type: BLOOD SPECIMENOrdering Facility: [facility] Address: [address] [place] [address] Performed By: #### 5 7021-8 ####[facility] LABCLIA [id number] [place] [address] Neutrophils (Bld) [#/Vol] 5.10 10*3/uL Normal 1.45-7.50 [facility] Comment on above: Order Comment: Speci men Type: BLOOD SPECIMENOrdering Facility: [facility] Address: [address] [place] [address] Performed By: #### 5 7021-8 ####[facility] LABCLIA [id number] [place] [address] Neutrophils/100 WBC (Bld) 74.4 % Normal [facility] Comment on above: Order Comment: Speci men Type: BLOOD SPECIMENOrdering Facility: [facility] Address: [address] [place] [address] Performed By: #### 5 7021-8 ####[facility] LABCLIA [id number] [place] [address] Nucleated RBC (Bld) [#/Vol] 10*3/uL Normal <0.01 [facility] Comment on above: Order Comment: Speci men Type: BLOOD SPECIMENOrdering Facility: [facility] Address: [address] [place] [address] Performed By: #### 5 7021-8 ####[facility] LABCLIA [id number] [place] [address] Nucleated RBC/100 WBC (Bld) [Ratio] 0.0 /100 WBC Normal [facility] Comment on above: Order Comment: Speci men Type: BLOOD SPECIMENOrdering Facility: [facility] Address: [address] [place] [address] Performed By: #### 5 7021-8 ####[facility] LABCLIA [id number] [place] [address] Platelet mean volume (Bld) [Entitic vol] 10.0 fL Normal 9.0-12.7 [facility] Comment on above: Order Comment: Speci men Type: BLOOD SPECIMENOrdering Facility: [facility] Address: [address] [place] [address] Performed By: #### 5 7021-8 ####[facility] LABCLIA [id number] [place] [address] Platelets (Bld) [#/Vol] 188 10*3/uL Normal 150-400 [facility] Comment on above: Order Comment: Speci men Type: BLOOD SPECIMENOrdering Facility: [facility] Address: [address] [place] [address] Performed By: #### 5 7021-8 ####[facility] LABCLIA [id number] [place] [address] RBC (Bld) [#/Vol] 4.31 10*6/uL Normal 4.20-6.00 [facility] Comment on above: Order Comment: Speci men Type: BLOOD SPECIMENOrdering Facility: [facility] Address: [address] [place] [address] Performed By: #### 5 7021-8 ####[facility] LABCLIA [id number] [place] [address] WBC (Bld) [#/Vol] 6.85 10*3/uL Normal 3.70-11.00 [facility] Comment on above: Order Comment: Speci men Type: BLOOD SPECIMENOrdering Facility: [facility] Address: [address] [place] [address] Performed By: #### 5 7021-8 ####[facility] LABIA [id number] [place] [address] CEA SerPl-mCncon 08-27-2023 Carcinoembryonic Ag [Mass/Vol] 1.7 ng/mL Normal <=2.9 [facility] Comment on above: Order Comment: Speci men Type: BLOOD SPECIMENOrdering Facility: [facility] Address: [address] [place] [address] Result Comment: Carc inoembryonic antigen test is [...] used interchangeably. Performed By: #### 2 039-6 ####[facility] LABCLIA [id number] [place]Y [id number] [id number] [place] CNOVSPon 08-27-2023 CNOVSP Normal [facility] CNPNon 08-27-2023 CNPN Normal [facility] Comprehensive metabolic 2000 panelon 08-27-2023 Albumin [Mass/Vol] 4.2 g/dL Normal 3.9-4.9 [facility] Comment on above: Order Comment: Speci men Type: BLOOD SPECIMENOrdering Facility: [facility] Address: [address] [place] [address] Performed By: #### 2 4323-8 ####[facility] LABCLIA [id number] [place] [address] ALP [Catalytic activity/Vol] 95 U/L Normal 38-113 [facility] Comment on above: Order Comment: Speci men Type: BLOOD SPECIMENOrdering Facility: [facility] Address: [address] [place] [address] Performed By: #### 2 4323-8 ####[facility] LABCLIA [id number] [place] [address] ALT [Catalytic activity/Vol] 7 U/L Low 10-54 [facility] Comment on above: Order Comment: Speci men Type: BLOOD SPECIMENOrdering Facility: [facility] Address: [address] [place] [address] Performed By: #### 2 4323-8 ####[facility] LABCLIA [id number] [place] [address] Anion gap [Moles/Vol] 9 mmol/L Normal 9-18 [facility] Comment on above: Order Comment: Speci men Type: BLOOD SPECIMENOrdering Facility: [facility] Address: [address] [place] [address] Performed By: #### 2 4323-8 ####[facility] LABCLIA [id number] [place] [address] AST [Catalytic activity/Vol] 13 U/L Low 14-40 [facility] Comment on above: Order Comment: Speci men Type: BLOOD SPECIMENOrdering Facility: [facility] Address: [address] [place] [address] Performed By: #### 2 4323-8 ####[facility] LABCLIA [id number] [place] [address] Bilirubin [Mass/Vol] 0.4 mg/dL Normal 0.2-1.[address] [facility] Comment on above: Order Comment: Speci men Type: BLOOD SPECIMENOrdering Facility: [facility] Address: [address] [place] [address] Performed By: #### 2 4323-8 ####[facility] LABCLIA [id number] [place] [address] Calcium [Mass/Vol] 8.8 mg/dL Normal 8.5-10.2 [facility] Comment on above: Order Comment: Speci men Type: BLOOD SPECIMENOrdering Facility: [facility] Address: [address] [place] [address] Performed By: #### 2 4323-8 ####[facility] LABCLIA [id number] [place] [address] Chloride [Moles/Vol] 104 mmol/L Normal 97-[address] [facility] Comment on above: Order Comment: Speci men Type: BLOOD SPECIMENOrdering Facility: [facility] Address: [address] [place] [address] Performed By: #### 2 4323-8 ####[facility] LABCLIA [id number] [place] [address] CO2 [Moles/Vol] 27 mmol/L Normal 22-30 [facility] Comment on above: Order Comment: Speci men Type: BLOOD SPECIMENOrdering Facility: [facility] Address: [address] [place] [address] Performed By: #### 2 4323-8 ####[facility] LABCLIA [id number] [place] [address] Creatinine [Mass/Vol] 1.21 mg/dL Normal 0.73-1.22 [facility] Comment on above: Order Comment: Nazario men Type: BLOOD SPECIMENOrdering Facility: [facility] Address: [address] [place] [address] Performed By: #### 2 4323-8 ####[facility] LABCLIA [id number] [place] [address] Creatinine and Glomerular filtration rate.predicted panel (S/P/Bld) 64 mL/min/1.73m??? Normal >=60 [facility] Comment on above: Order Comment: Nazario brooks Type: BLOOD SPECIMENOrdering Facility: [facility] Address: [address] [place] [address] Result Comment: Rebekah mated Glomerular Filtration Rate [...] actual GFR. Performed By: #### 2 4323-8 ####[facility] LABCLIA [id number] [place] [address] Glucose [Mass/Vol] 91 mg/dL Normal 74-99 [facility] Comment on above: Order Comment: Nazario brooks Type: BLOOD SPECIMENOrdering Facility: [facility] Address: [address] [place] [address] Result Comment: The [employer] Diabetes Association (ADA) provides guidance for cutoff [...] Standards of Medical Care in Diabetes 2016, [employer] Diabetes Association. Diabetes Care. 2016.39(Suppl 1). Performed By: #### 2 4323-8 ####[facility] LABCLIA [id number] [place] [address] Potassium [Moles/Vol] 3.7 mmol/L Normal 3.7-5.1 [facility] Comment on above: Order Comment: Speci men Type: BLOOD SPECIMENOrdering Facility: [facility] Address: [address] [place] [address] Performed By: #### 2 4323-8 ####[facility] LABCLIA [id number] [place] [address] Protein [Mass/Vol] 6.2 g/dL Low 6.3-8.0 [facility] Comment on above: Order Comment: Speci men Type: BLOOD SPECIMENOrdering Facility: [facility] Address: [address] [place] [address] Performed By: #### 2 4323-8 ####[facility] LABCLIA [id number] [place] [address] Sodium [Moles/Vol] 140 mmol/L Normal 136-144 [facility] Comment on above: Order Comment: Speci men Type: BLOOD SPECIMENOrdering Facility: [facility] Address: [address] [place] [address] Performed By: #### 2 4323-8 ####[facility] LABCLIA [id number] [place] [address] Urea nitrogen [Mass/Vol] 22 mg/dL Normal 9-24 [facility] Comment on above: Order Comment: Speci men Type: BLOOD SPECIMENOrdering Facility: [facility] Address: [place] [address] Performed By: #### 2 4323-8 ####[facility] LABCLIA [id number] [place] [address] IntraOperative Documentson 1 10-27-2022 IntraOperative Documents [id number]#1.00T IFF Normal [facility] Consent for Treatmenton Consent for Treatment [id number]#1.00T IFF Normal [facility] MR lumbar spine wo conon MR lumbar spine wo con [facility] [place] [address] [place] [address] MRI Report Signed Patient: Mervat Damon MR#: [id number] : 1950 Acct:[id number] Age/Sex: 72 / M ADM Date: 08/14/23 Loc: [facility] Room: Type: [facility] Attending Dr: Valencia ONEAL Copies to: JM [...] Houser Jr., D.O.08/14/2023 2:30 PM Dictation Location: [place] [address] Transcribed By: [facility] 08/14/23 1430 Dictated By: Hang Houser Jr, DO 08/14/23 1426 Signed By: 08/14/23 1430 Normal [facility] MR lumbar spine wo con [facility] [employer] Other MR lumbar spine wo con [facility] Other MR lumbar spine wo con [address] [facility] [place] [address] [facility] Other MR lumbar spine wo con MRI Report [facility] Other MR lumbar spine wo con Signed [facility] Other MR lumbar spine wo con Patient: Mervat Damon MR#: [id number] [facility] Other MR lumbar spine wo con 4313 [facility] Other MR lumbar spine wo con : 1950 Acct:[id number] [facility] Other MR lumbar spine wo con Age/Sex: 72 / M ADM Date: 08/14/23 [facility] Other MR lumbar spine wo con [facility]: Type: REG I [facility] Other MR lumbar spine wo con Attending Dr: Valencia Torres RUBBER STAMP ASSEMBLERMayraC [facility] Other MR lumbar spine wo con Copies to: Valencia Torres, LISAC [facility] Other MR lumbar spine wo con Ordering Provider: LISA GodoyC [facility] Other MR lumbar spine wo con Date of Service: 08/14/23 [facility] Other MR lumbar spine wo con MR/MR lumbar spine wo con: Polyneuropathy [facility] Other MR lumbar spine wo con MRI lumbar spine without IV contrast. [facility] Other MR lumbar spine wo con Reason for exam: Back pain. History of colorectal cancer.. No known injury. [facility] Other MR lumbar spine wo con COMPARISON: Lumbar spine series 05/17/2023. Ex [facility] Other MR lumbar spine wo con TECHNIQUE: Multisequence, multiplanar imaging of the lumbar spine was obtained without the use of IV [facility] Other MR lumbar spine wo con contrast. [facility] Other MR lumbar spine wo con FINDINGS: Vertebral body heights appear maintained. No bone marrow edema is seen. Presumed [facility] Other MR lumbar spine wo con postradiation bone marrow changes are seen involving the L5 vertebral body and visualized sacrum. [facility] Other MR lumbar spine wo con Spinal cord terminates in normal position without abnormal cord signal. No paraspinal mass. [facility] Other MR lumbar spine wo con Visualized retroperitoneum demonstrates presumed bilateral parapelvic cysts. [facility] Other MR lumbar spine wo con L1-L2: Diffuse broad-based disc bulge is present with central protrusion type disc herniation noted. [facility] Other MR lumbar spine wo con There is ligamentum flavum hypertrophy and facet joint degenerative changes. Findings are causing [facility] Other MR lumbar spine wo con moderate canal and severe left-sided neural foraminal stenosis. Mild right-sided neural foraminal [facility] Other MR lumbar spine wo con stenosis. [facility] Other MR lumbar spine wo con L2-L3: 5 mm retrolisthesis is noted. Broad-based disc bulge is present with ligamentum flavum [facility] Other MR lumbar spine wo con hypertrophy and facet joint degenerative changes. Findings are causing moderate canal and severe [facility] Other MR lumbar spine wo con bilateral neural foraminal narrowing. [facility] Other MR lumbar spine wo con L3-L4: 3 mm retrolisthesis. Diffuse broad-based disc bulge is present with ligamentum flavum [facility] Other MR lumbar spine wo con hypertrophy and facet joint degenerative changes causing mild canal and severe bilateral neural [facility] Other MR lumbar spine wo con foraminal stenosis. [facility] Other MR lumbar spine wo con L4-L5: 6 mm of anterolisthesis. Diffuse broad-based disc bulge is present with ligamentum flavum [facility] Other MR lumbar spine wo con hypertrophy and facet joint degenerative changes causing severe canal and right-sided neural [facility] Other MR lumbar spine wo con foraminal stenosis. Moderate left-sided neural foraminal stenosis. [facility] Other MR lumbar spine wo con L5-S1: No posterior disc pathology is noted. Facet joint degenerative changes. No significant canal [facility] Other MR lumbar spine wo con stenosis. Severe bilateral foraminal stenosis. [facility] Other MR lumbar spine wo con MR/MR lumbar spine wo con [facility] Other MR lumbar spine wo con Impression: Multilevel degenerative disc disease as described above. [facility] Other MR lumbar spine wo con Impression dictated by: aHng Houser Jr., D.OShirley08/14/2023 2:30 PM [facility] Other MR lumbar spine wo con Dictation Location: [place] [address] [facility] Other MR lumbar spine wo con Transcribed By: [facility] 08/14/23 [facility] Other MR lumbar spine wo con Dictated By: Hang Houser Jr DO 08/14/23 [facility] [facility] Other MR lumbar spine wo con Signed By: [facility] Other MR lumbar spine wo con 08/14/23 [facility] Other PT - Assessmentson 3 PT - Assessments [id number]#1.00 CD:127 Normal [facility] ANES POSTPROC EVALon 023 ANES POSTPROC EVAL HNO ID: [id number] Author: Sybil Proctor MD Service: ? Author [...] Scheduled Providers: Deborah Norman MD; Elba Snell APRN.CAT SITTER; Sybil Proctor MD; Santiago Sidhu RN Responsible [...] July 09, 2023 TIME: 2:49 PM CSN: [id number] [facility] ANES PRE-OPon 07-09-2023 ANES PRE-OP HNO ID: [id number] Author: Sybil Proctor MD Service: ? Author Type: Physician Type: Anesthesia Preprocedure Evaluation Filed: 07/09/2023 9:06 AM Note Text: ANESTHESIOLOGY DAY OF SURGERY NOTE : 1950 Procedure Information Date/Time: 07/09/23929 Scheduled providers: Deborah Norman MD; Elba Snell APRN.CAT SITTER; Sybil Proctor MD; Santiago Sidhu RN Procedure: [...] No current facility (more content not included)... [facility] ANES PREOPon 07-09-2023 ANES PREOP HNO ID: [id number] Author: Toshia Mixon MD Service: Colorectal Author [...] July 09, 2023 TIME: 9:22 AM Normal [facility] Flexible Sigmoidoscopyon Flexible sigmoidoscopy [facility] Gastrointestinal Endoscopy Patient Name: Mervat Damon Procedure Date: 07/09/2023 9:19 AM Date of : 1950 Admit Type: Outpatient Age: 72 Room: [place] [address] Gender: Male Note Status: Finalized Attending MD: [...] for surveillance. Procedure Code(s): --- Professional --- 44084, 54, Sigmoidoscopy, flexible; diagnostic, including collection of specimen(s) by brushing or washing, when performed (separate procedure) CPT copyright 2020 [employer]. All rights reserved. The codes documented in this report are preliminary and upon certified medical coder review may be revised to meet [...] Blood Loss: Estimated blood loss: none. Normal [facility] Nonvisit Note - PTon 023 Nonvisit Note - PT cx will be out of town [facility] SIGMOIDOSCOPYon 07-09-2023 [facility] Consultation Noteon 07-04-20 23 Consultation Note [id number]#1.00CD :127 [facility] PT - Assessmentson 3 PT - Assessments [id number]#1.00C D:127 [facility] Nonvisit Note - PTon 023 Nonvisit Note - PT Pt. did not show to 06/27/23 outpatient PT re-eval appt. desktop publishing associate messaged to call pt. to reschedule pt.'s re-eval as he has further appointments scheduled and needs a re-eval. Normal [facility] CBC W Auto Differential pane l (Bld)on 06-20-2023 Basophils (Bld) [#/Vol] 0.05 10*3/uL Normal <0.11 [facility] Comment on above: Order Comment: Speci men Type: BLOOD SPECIMENOrdering Facility: [facility] Address: [address] [place] [address] Performed By: #### 5 7021-8 ####[facility] LABCLIA [id number] [place] [address] Basophils/100 WBC (Bld) 0.8 % Normal [facility] Comment on above: Order Comment: Speci men Type: BLOOD SPECIMENOrdering Facility: [facility] Address: [address] [place] [address] Performed By: #### 5 7021-8 ####[facility] LABCLIA [id number] [place] [address] Differential cell count method Nom (Bld) Auto Normal [facility] Comment on above: Order Comment: Speci men Type: BLOOD SPECIMENOrdering Facility: [facility] Address: [address] [place] [address] Performed By: #### 5 7021-8 ####[facility] LABCLIA [id number] [place] [address] Eosinophils (Bld) [#/Vol] 0.20 10*3/uL Normal <0.46 [facility] Comment on above: Order Comment: Speci men Type: BLOOD SPECIMENOrdering Facility: [facility] Address: [address] [place] [address] Performed By: #### 5 7021-8 ####[facility] LABCLIA [id number] [place] [address] Eosinophils/100 WBC (Bld) 3.2 % Normal [facility] Comment on above: Order Comment: Speci men Type: BLOOD SPECIMENOrdering Facility: [facility] Address: [address] [place] [address] Performed By: #### 5 7021-8 ####[facility] LABCLIA [id number] [place] [address] Erythrocyte distribution width (RBC) [Ratio] 16.4 % High 11.5-15.0 [facility] Comment on above: Order Comment: Speci men Type: BLOOD SPECIMENOrdering Facility: [facility] Address: [address] [place] [address] Performed By: #### 5 7021-8 ####[facility] LABCLIA [id number] [place] [address] Hematocrit (Bld) [Volume fraction] 37.4 % Low 39.0-51.0 [facility] Comment on above: Order Comment: Speci men Type: BLOOD SPECIMENOrdering Facility: [facility] Address: [address] [place] [address] Performed By: #### 5 7021-8 ####[facility] LABCLIA [id number] [place] [address] Hemoglobin (Bld) [Mass/Vol] 12.1 g/dL Low 13.0-17.0 [facility] Comment on above: Order Comment: Speci men Type: BLOOD SPECIMENOrdering Facility: [facility] Address: [address] [place] [address] Performed By: #### 5 7021-8 ####[facility] LABCLIA [id number] [place] [address] Immature granulocytes (Bld) [#/Vol] 0.04 10*3/uL Normal <0.10 [facility] Comment on above: Order Comment: Speci men Type: BLOOD SPECIMENOrdering Facility: [facility] Address: [address] [place] [address] Performed By: #### 5 7021-8 ####[facility] LABCLIA [id number] [place] [address] Immature granulocytes/100 WBC (Bld) 0.6 % Normal [facility] Comment on above: Order Comment: Speci men Type: BLOOD SPECIMENOrdering Facility: [facility] Address: [address] [place] [address] Performed By: #### 5 7021-8 ####[facility] LABCLIA [id number] [place] [address] Lymphocytes (Bld) [#/Vol] 0.82 10*3/uL Low 1.00-4.00 [facility] Comment on above: Order Comment: Speci men Type: BLOOD SPECIMENOrdering Facility: [facility] Address: [address] [place] [address] Performed By: #### 5 7021-8 ####[facility] LABCLIA [id number] [place] [address] Lymphocytes/100 WBC (Bld) 13.1 % Normal [facility] Comment on above: Order Comment: Speci men Type: BLOOD SPECIMENOrdering Facility: [facility] Address: [address] [place] [address] Performed By: #### 5 7021-8 ####[facility] LABCLIA [id number] [place] [address] MCH (RBC) [Entitic mass] 31.7 pg Normal 26.0-34.0 [facility] Comment on above: Order Comment: Speci men Type: BLOOD SPECIMENOrdering Facility: [facility] Address: [address] [place] [address] Performed By: #### 5 7021-8 ####[facility] LABCLIA [id number] [place] [address] MCHC (RBC) [Mass/Vol] 32.4 g/dL Normal 30.5-36.0 [facility] Comment on above: Order Comment: Speci men Type: BLOOD SPECIMENOrdering Facility: [facility] Address: [address] [place] [address] Performed By: #### 5 7021-8 ####[facility] LABIA [id number] [place] [address] MCV (RBC) [Entitic vol] 97.9 fL Normal 80.0-100.0 [facility] Comment on above: Order Comment: Speci men Type: BLOOD SPECIMENOrdering Facility: [facility] Address: [address] [place] [address] Performed By: #### 5 7021-8 ####[facility] LABCLIA [id number] [place] [address] Monocytes (Bld) [#/Vol] 0.83 10*3/uL Normal <0.87 [facility] Comment on above: Order Comment: Speci men Type: BLOOD SPECIMENOrdering Facility: [facility] Address: [address] [place] [address] Performed By: #### 5 7021-8 ####[facility] LABCLIA [id number] [place] [address] Monocytes/100 WBC (Bld) 13.3 % Normal [facility] Comment on above: Order Comment: Speci men Type: BLOOD SPECIMENOrdering Facility: [facility] Address: [address] [place] [address] Performed By: #### 5 7021-8 ####[facility] LABCLIA [id number] [place] [address] Neutrophils (Bld) [#/Vol] 4.32 10*3/uL Normal 1.45-7.50 [facility] Comment on above: Order Comment: Speci men Type: BLOOD SPECIMENOrdering Facility: [facility] Address: [address] [place] [address] Performed By: #### 5 7021-8 ####[facility] LABCLIA [id number] [place] [address] Neutrophils/100 WBC (Bld) 69.0 % Normal [facility] Comment on above: Order Comment: Speci men Type: BLOOD SPECIMENOrdering Facility: [facility] Address: [address] [place] [address] Performed By: #### 5 7021-8 ####[facility] LABCLIA [id number] [place] [address] Nucleated RBC (Bld) [#/Vol] 10*3/uL Normal <0.01 [facility] Comment on above: Order Comment: Speci men Type: BLOOD SPECIMENOrdering Facility: [facility] Address: [address] [place] [address] Performed By: #### 5 7021-8 ####[facility] LABIA [id number] [place] [address] Nucleated RBC/100 WBC (Bld) [Ratio] 0.0 /100 WBC Normal [facility] Comment on above: Order Comment: Speci men Type: BLOOD SPECIMENOrdering Facility: [facility] Address: [address] [place] [address] Performed By: #### 5 7021-8 ####[facility] LABIA [id number] [place] [address] Platelet mean volume (Bld) [Entitic vol] 9.7 fL Normal 9.0-12.7 [facility] Comment on above: Order Comment: Speci men Type: BLOOD SPECIMENOrdering Facility: [facility] Address: [address] [place] [address] Performed By: #### 5 7021-8 ####[facility] LABIA [id number] [place] [address] Platelets (Bld) [#/Vol] 196 10*3/uL Normal 150-400 [facility] Comment on above: Order Comment: Speci men Type: BLOOD SPECIMENOrdering Facility: [facility] Address: [address] [place] [address] Performed By: #### 5 7021-8 ####[facility] LABIA [id number] [place] [address] RBC (Bld) [#/Vol] 3.82 10*6/uL Low 4.20-6.00 [facility] Comment on above: Order Comment: Speci men Type: BLOOD SPECIMENOrdering Facility: [facility] Address: [address] [address] Performed By: #### 5 7021-8 ####[facility] LABIA [id number] [place] [id number] WBC (Bld) [#/Vol] 6.26 10*3/uL Normal 3.70-11.00 [facility] Comment on above: Order Comment: Speci men Type: BLOOD SPECIMENOrdering Facility: [facility] Address: [address] [address] Performed By: #### 5 7021-8 ####[facility] LABIA [id number] [place] [address] Basophils (Bld) [#/Vol] 0.05 10*3/uL <0.11 k/uL [facility] Basophils/100 WBC (Bld) 0.8 % [facility] Differential cell count method Nom (Bld) Auto [facility] Eosinophils (Bld) [#/Vol] 0.20 10*3/uL <0.46 k/uL [facility] Eosinophils/100 WBC (Bld) 3.2 % [facility] Erythrocyte distribution width (RBC) [Ratio] 16.4 % High 11.5 - 15.0 % [facility] Hematocrit (Bld) [Volume fraction] 37.4 % Low 39.0 - 51.0 % [facility] Hemoglobin (Bld) [Mass/Vol] 12.1 g/dL Low 13.0 - 17.0 g/dL [facility] Immature granulocytes (Bld) [#/Vol] 0.04 10*3/uL <0.10 k/uL [facility] Immature granulocytes/100 WBC (Bld) 0.6 % [facility] Lymphocytes (Bld) [#/Vol] 0.82 10*3/uL Low 1.00 - 4.00 k/uL [facility] Lymphocytes/100 WBC (Bld) 13.1 % [facility] MCH (RBC) [Entitic mass] 31.7 pg 26.0 - 34.0 pg [facility] MCHC (RBC) [Mass/Vol] 32.4 g/dL 30.5 - 36.0 g/dL [facility] MCV (RBC) [Entitic vol] 97.9 fL 80.0 - 100.0 fL [facility] Monocytes (Bld) [#/Vol] 0.83 10*3/uL <0.87 k/uL [facility] Monocytes/100 WBC (Bld) 13.3 % [facility] Neutrophils (Bld) [#/Vol] 4.32 10*3/uL 1.45 - 7.50 k/uL [facility] Neutrophils/100 WBC (Bld) 69.0 % [facility] Nucleated RBC (Bld) [#/Vol] <0.01 k/uL [facility] Nucleated RBC/100 WBC (Bld) [Ratio] 0.0 /100 WBC [facility] Platelet mean volume (Bld) [Entitic vol] 9.7 fL 9.0 - 12.7 fL [facility] Platelets (Bld) [#/Vol] 196 10*3/uL 150 - 400 k/uL [facility] RBC (Bld) [#/Vol] 3.82 10*6/uL Low 4.20 - 6.0 0 m/uL [facility] WBC (Bld) [#/Vol] 6.26 10*3/uL 3.70 - 11.00 k/uL [facility] CEA SerPl-ncon 06-20-2023 Carcinoembryonic Ag [Mass/Vol] 1.7 ng/mL Normal <=2.9 [facility] Comment on above: Order Comment: Speci men Type: BLOOD SPECIMENOrdering Facility: [facility] Address: [address] [place] [address] Result Comment: Carc inoembryonic antigen test is used as an aid in monitoring response to treatment or recurrence in patients with established colorectal, breast, lung, prostatic, pancreatic, and ovarian carcinomas. Clinical correlation is required.The Carcinoembryonic antigen test was performed using the [employer] DXI paramagnetic particle chemiluminescent immunoassay method. Results obtained with different assay methods or kits cannot be used interchangeably. Performed By: #### 2 039-6 ####[facility] LABCLIA [id number] [address] [place] CNPNon 06-20-2023 CNPN Normal [facility] CT ABDOMEN W IVCONon 023 CT ABDOMEN W IVCON Normal [facility] CT CHEST W IVCONon 3 CT CHEST W IVCON Normal [facility] Comprehensive metabolic 2000 panelon 06-20-2023 Albumin [Mass/Vol] 3.9 g/dL Normal 3.9-4.9 [facility] Comment on above: Order Comment: Speci men Type: BLOOD SPECIMENOrdering Facility: [facility] Address: [address] [address] Performed By: #### 2 4328, ####[facility] LABIA [id number] [place] [address] ALP [Catalytic activity/Vol] 97 U/L Normal 38-113 [facility] Comment on above: Order Comment: Speci men Type: BLOOD SPECIMENOrdering Facility: [facility] Address: [address] [address] Performed By: #### 2 8, ####[facility] LABIA [id number] [place] [address] ALT [Catalytic activity/Vol] 9 U/L Low 10-54 [facility] Comment on above: Order Comment: Speci men Type: BLOOD SPECIMENOrdering Facility: [facility] Address: [address] [address] Performed By: #### 2 4328, ####[facility] LABCLIA [id number] [place] [address] Anion gap [Moles/Vol] 10 mmol/L Normal 9-18 [facility] Comment on above: Order Comment: Speci men Type: BLOOD SPECIMENOrdering Facility: [facility] Address: [address] [address] Performed By: #### 2 4328, ####[facility] LABCLIA [id number] [place] [address] AST [Catalytic activity/Vol] 11 U/L Low 14-40 [facility] Comment on above: Order Comment: Speci men Type: BLOOD SPECIMENOrdering Facility: [facility] Address: [address] [place] [address] Performed By: #### 2 4323-8, ####[facility] LABCLIA [id number] [place] [address] Bilirubin [Mass/Vol] 0.4 mg/dL Normal 0.2-1.[address] [facility] Comment on above: Order Comment: Speci men Type: BLOOD SPECIMENOrdering Facility: [facility] Address: [address] [place] [address] Performed By: #### 2 4323-8, ####[facility] LABCLIA [id number] [place] [address] Calcium [Mass/Vol] 9.3 mg/dL Normal 8.5-10.2 [facility] Comment on above: Order Comment: Speci men Type: BLOOD SPECIMENOrdering Facility: [facility] Address: [address] [place] [address] Performed By: #### 2 4323-8, ####[facility] LABIA [id number] [place] [address] Chloride [Moles/Vol] 109 mmol/L High 97-[address] [facility] Comment on above: Order Comment: Speci men Type: BLOOD SPECIMENOrdering Facility: [facility] Address: [address] [place] [address] Performed By: #### 2 4323-8, ####[facility] LABCLIA [id number] [place] [address] CO2 [Moles/Vol] 26 mmol/L Normal 22-30 [facility] Comment on above: Order Comment: Speci men Type: BLOOD SPECIMENOrdering Facility: [facility] Address: [address] [id number] Performed By: #### 2 4323-8, ####[facility] LABCLIA [id number] [place] [address] Creatinine [Mass/Vol] 1.14 mg/dL Normal 0.73-1.22 [facility] Comment on above: Order Comment: Speci men Type: BLOOD SPECIMENOrdering Facility: [facility] Address: [address] [address] Performed By: #### 2 4323-8, ####[facility] LABCLIA [id number] [place] [address] Creatinine and Glomerular filtration rate.predicted panel (S/P/Bld) 69 mL/min/1.73m??? Normal >=60 [facility] Comment on above: Order Comment: Speci men Type: BLOOD SPECIMENOrdering Facility: [facility] Address: [address] [address] Result Comment: Rebekah mated Glomerular Filtration Rate [...] actual GFR. Performed By: #### 2 4323-8, ####[facility] LABIA [id number] [place] [address] Glucose [Mass/Vol] 90 mg/dL Normal 74-99 [facility] Comment on above: Order Comment: Speci men Type: BLOOD SPECIMENOrdering Facility: [facility] Address: [address] [address] Result Comment: The [place] Diabetes Association (ADA) provides guidance for cutoff [...] Standards of Medical Care in Diabetes 2016, [place] [employer]. Diabetes Care. 2016.39(Suppl 1). Performed By: #### 2 43212-26, ####[facility] LABCLIA [id number] [place] [address] Potassium [Moles/Vol] 3.9 mmol/L Normal 3.7-5.1 [facility] Comment on above: Order Comment: Speci men Type: BLOOD SPECIMENOrdering Facility: [facility] Address: [address] [place] [address] Performed By: #### 2 4323-05, ####[facility] LABCLIA [id number] [place] [address] Protein [Mass/Vol] 6.1 g/dL Low 6.3-8.0 [facility] Comment on above: Order Comment: Speci men Type: BLOOD SPECIMENOrdering Facility: [facility] Address: [address] [place] [address] Performed By: #### 2 4323-05, ####[facility] LABCLIA [id number] [place] [address] Sodium [Moles/Vol] 145 mmol/L High 136-144 [facility] Comment on above: Order Comment: Speci men Type: BLOOD SPECIMENOrdering Facility: [facility] Address: [address] [place] [address] Performed By: #### 2 43212-26, ####[facility] LABCLIA [id number] [place] [address] Urea nitrogen [Mass/Vol] 21 mg/dL Normal 9-24 [facility] Comment on above: Order Comment: Speci men Type: BLOOD SPECIMENOrdering Facility: [facility] Address: [place] [address] Performed By: #### 2 4323-8, 57126-6 ####[facility] LABCLIA [id number] [place] [address] Albumin [Mass/Vol] 3.9 g/dL 3.9 - 4.9 g/dL [facility] ALP [Catalytic activity/Vol] 97 U/L 38 - 113 U/L [facility] ALT [Catalytic activity/Vol] 9 U/L Low 10 - 54 U/L [facility] Anion gap [Moles/Vol] 10 mmol/L 9 - 18 mmol/L [facility] AST [Catalytic activity/Vol] 11 U/L Low 14 - 40 U/L [facility] Bilirubin [Mass/Vol] 0.4 mg/dL 0.2 - 1 .3 mg/dL [facility] Calcium [Mass/Vol] 9.3 mg/dL 8.5 - 10. 2 mg/dL [facility] Chloride [Moles/Vol] 109 mmol/L High 97 - 10 5 mmol/L [facility] CO2 [Moles/Vol] 26 mmol/L 22 - 30 mmol/L [facility] Creatinine [Mass/Vol] 1.14 mg/dL 0.73 - 1.22 mg/dL [facility] Estimated Glomerular Filtration Rate 69 mL/min/1.73m >=60 mL/min/1.73 m [facility] Glucose [Mass/Vol] 90 mg/dL 74 - 99 mg/dL [facility] Potassium [Moles/Vol] 3.9 mmol/L 3.7 - 5.1 mmol/L [facility] Protein [Mass/Vol] 6.1 g/dL Low 6.3 - 8.0 g/dL [facility] Sodium [Moles/Vol] 145 mmol/L High 136 - 144 mmol/L [facility] Urea nitrogen [Mass/Vol] 21 mg/dL 9 - 24 mg/dL [facility] MAGNESIUM BLDon 06-20-2023 Magnesium [Mass/Vol] 2.0 mg/dL 1.7 - 2 .3 mg/dL [facility] Magnesium SerPl-mCncon 06-20 Magnesium [Mass/Vol] 2.0 mg/dL Normal 1.7-2.[address] [facility] Comment on above: Order Comment: Speci men Type: BLOOD SPECIMENOrdering Facility: [facility] Address: [address] [place] [address] Performed By: #### 2 4323-8, 27855-1 ####[facility] LABCLIA [id number] [place] [address] CNPNon 06-19-2023 CNPN Normal [facility] PT - Home Exercise Programon 06-10-2023 PT - Home Exercise Program [id number]#1.00 CD:127 Normal [facility] Consultation Noteon 06-07-20 Consultation Note [id number]#1.00C D:127 Normal [facility] Operative Reporton Operative Report [id number]#1.00 CD:127 Normal [facility] PT - Home Exercise Programon 06-06-2023 PT - Home Exercise Program [id number]#1.00C D:127 Normal [facility] CEA BLDon 05-29-2023 Carcinoembryonic Ag [Mass/Vol] 2.2 ng/mL <=2.9 ng/mL [facility] CBC W Auto Differential pane l (Bld)on 05-28-2023 Basophils (Bld) [#/Vol] 0.04 10*3/uL Normal <0.11 [facility] Comment on above: Order Comment: Speci men Type: BLOOD SPECIMENOrdering Facility: [facility] Address: [address] [place], [place] [phone] Performed By: #### 5 7021-8 ####[facility] LABCLIA [id number] [place] [address] Basophils/100 WBC (Bld) 0.4 % Normal [facility] Comment on above: Order Comment: Speci men Type: BLOOD SPECIMENOrdering Facility: [facility] Address: [address] [place] [address] Performed By: #### 5 7021-8 ####[facility] LABCLIA [id number] [place] [address] Differential cell count method Nom (Bld) Auto Normal [facility] Comment on above: Order Comment: Speci men Type: BLOOD SPECIMENOrdering Facility: [facility] Address: [address] [place] [address] Performed By: #### 5 7021-8 ####[facility] LABCLIA [id number] [place] [address] Eosinophils (Bld) [#/Vol] 0.16 10*3/uL Normal <0.46 [facility] Comment on above: Order Comment: Speci men Type: BLOOD SPECIMENOrdering Facility: [facility] Address: [address] [place] [address] Performed By: #### 5 7021-8 ####[facility] LABCLIA [id number] [place] [address] Eosinophils/100 WBC (Bld) 1.7 % Normal [facility] Comment on above: Order Comment: Speci men Type: BLOOD SPECIMENOrdering Facility: [facility] Address: [address] [place] [address] Performed By: #### 5 7021-8 ####[facility] LABCLIA [id number] [place] [address] Erythrocyte distribution width (RBC) [Ratio] 17.1 % High 11.5-15.0 [facility] Comment on above: Order Comment: Speci men Type: BLOOD SPECIMENOrdering Facility: [facility] Address: [address] [place] [address] Performed By: #### 5 7021-8 ####[facility] LABCLIA [id number] [place] [address] Hematocrit (Bld) [Volume fraction] 37.7 % Low 39.0-51.0 [facility] Comment on above: Order Comment: Speci men Type: BLOOD SPECIMENOrdering Facility: [facility] Address: [address] [place] [address] Performed By: #### 5 7021-8 ####[facility] LABCLIA [id number] [place] [address] Hemoglobin (Bld) [Mass/Vol] 12.2 g/dL Low 13.0-17.0 [facility] Comment on above: Order Comment: Speci men Type: BLOOD SPECIMENOrdering Facility: [facility] Address: [address] [place] [address] Performed By: #### 5 7021-8 ####[facility] LABCLIA [id number] [place] [address] Immature granulocytes (Bld) [#/Vol] 0.05 10*3/uL Normal <0.10 [facility] Comment on above: Order Comment: Speci men Type: BLOOD SPECIMENOrdering Facility: [facility] Address: [address] [place] [address] Performed By: #### 5 7021-8 ####[facility] LABCLIA [id number] [place] [address] Immature granulocytes/100 WBC (Bld) 0.5 % Normal [facility] Comment on above: Order Comment: Speci men Type: BLOOD SPECIMENOrdering Facility: [facility] Address: [address] [place] [address] Performed By: #### 5 7021-8 ####[facility] LABCLIA [id number] [place] [address] Lymphocytes (Bld) [#/Vol] 0.65 10*3/uL Low 1.00-4.00 [facility] Comment on above: Order Comment: Speci men Type: BLOOD SPECIMENOrdering Facility: [facility] Address: [address] [place] [address] Performed By: #### 5 7021-8 ####[facility] LABCLIA [id number] [place] [address] Lymphocytes/100 WBC (Bld) 6.8 % Normal [facility] Comment on above: Order Comment: Speci men Type: BLOOD SPECIMENOrdering Facility: [facility] Address: [address] [place] [address] Performed By: #### 5 7021-8 ####[facility] LABCLIA [id number] [place] [address] MCH (RBC) [Entitic mass] 32.3 pg Normal 26.0-34.0 [facility] Comment on above: Order Comment: Speci men Type: BLOOD SPECIMENOrdering Facility: [facility] Address: [address] [place] [address] Performed By: #### 5 7021-8 ####[facility] LABCLIA [id number] [place] [address] MCHC (RBC) [Mass/Vol] 32.4 g/dL Normal 30.5-36.0 [facility] Comment on above: Order Comment: Speci men Type: BLOOD SPECIMENOrdering Facility: [facility] Address: [address] [place] [address] Performed By: #### 5 7021-8 ####[facility] LABCLIA [id number] [place] [address] MCV (RBC) [Entitic vol] 99.7 fL Normal 80.0-100.0 [facility] Comment on above: Order Comment: Speci men Type: BLOOD SPECIMENOrdering Facility: [facility] Address: [address] [place] [address] Performed By: #### 5 7021-8 ####[facility] LABCLIA [id number] [place] [address] Monocytes (Bld) [#/Vol] 0.71 10*3/uL Normal <0.87 [facility] Comment on above: Order Comment: Speci men Type: BLOOD SPECIMENOrdering Facility: [facility] Address: [address] [place] [address] Performed By: #### 5 7021-8 ####[facility] LABCLIA [id number] [place] [address] Monocytes/100 WBC (Bld) 7.4 % Normal [facility] Comment on above: Order Comment: Speci men Type: BLOOD SPECIMENOrdering Facility: [facility] Address: [address] [place] [address] Performed By: #### 5 7021-8 ####[facility] LABCLIA [id number] [place] [address] Neutrophils (Bld) [#/Vol] 7.93 10*3/uL High 1.45-7.50 [facility] Comment on above: Order Comment: Speci men Type: BLOOD SPECIMENOrdering Facility: [facility] Address: [address] [place] [address] Performed By: #### 5 7021-8 ####[facility] LABCLIA [id number] [place] [address] Neutrophils/100 WBC (Bld) 83.2 % Normal [facility] Comment on above: Order Comment: Speci men Type: BLOOD SPECIMENOrdering Facility: [facility] Address: [address] [place] [address] Performed By: #### 5 7021-8 ####[facility] LABCLIA [id number] [place] [address] Nucleated RBC (Bld) [#/Vol] 10*3/uL Normal <0.01 [facility] Comment on above: Order Comment: Speci men Type: BLOOD SPECIMENOrdering Facility: [facility] Address: [address] [address] Performed By: #### 5 7021-8 ####[facility] LABCLIA [id number] [place] [address] Nucleated RBC/100 WBC (Bld) [Ratio] 0.0 /100 WBC Normal [facility] Comment on above: Order Comment: Speci men Type: BLOOD SPECIMENOrdering Facility: [facility] Address: [address] [place] [address] Performed By: #### 5 7021-8 ####[facility] LABCLIA [id number] [place] [address] Platelet mean volume (Bld) [Entitic vol] 10.1 fL Normal 9.0-12.7 [facility] Comment on above: Order Comment: Speci men Type: BLOOD SPECIMENOrdering Facility: [facility] Address: [address] [place] [address] Performed By: #### 5 7021-8 ####[facility] LABCLIA [id number] [place] [address] Platelets (Bld) [#/Vol] 206 10*3/uL Normal 150-400 [facility] Comment on above: Order Comment: Speci men Type: BLOOD SPECIMENOrdering Facility: [facility] Address: [address] [place] [address] Performed By: #### 5 7021-8 ####[facility] LABCLIA [id number] [place] [address] RBC (Bld) [#/Vol] 3.78 10*6/uL Low 4.20-6.00 [facility] Comment on above: Order Comment: Speci men Type: BLOOD SPECIMENOrdering Facility: [facility] Address: [address] [place] [address] Performed By: #### 5 7021-8 ####[facility] LABCLIA [id number] [place] [address] WBC (Bld) [#/Vol] 9.54 10*3/uL Normal 3.70-11.00 [facility] Comment on above: Order Comment: Speci men Type: BLOOD SPECIMENOrdering Facility: [facility] Address: [address] [place] [address] Performed By: #### 5 7021-8 ####[facility] LABCLIA [id number] [place] [address] Basophils (Bld) [#/Vol] 0.04 10*3/uL <0.11 k/uL [facility] Basophils/100 WBC (Bld) 0.4 % [facility] Differential cell count method Nom (Bld) Auto [facility] Eosinophils (Bld) [#/Vol] 0.16 10*3/uL <0.46 k/uL [facility] Eosinophils/100 WBC (Bld) 1.7 % [facility] Erythrocyte distribution width (RBC) [Ratio] 17.1 % High 11.5 - 15.0 % [facility] Hematocrit (Bld) [Volume fraction] 37.7 % Low 39.0 - 51.0 % [facility] Hemoglobin (Bld) [Mass/Vol] 12.2 g/dL Low 13.0 - 17.0 g/dL [facility] Immature granulocytes (Bld) [#/Vol] 0.05 10*3/uL <0.10 k/uL [facility] Immature granulocytes/100 WBC (Bld) 0.5 % [facility] Lymphocytes (Bld) [#/Vol] 0.65 10*3/uL Low 1.00 - 4.00 k/uL [facility] Lymphocytes/100 WBC (Bld) 6.8 % [facility] MCH (RBC) [Entitic mass] 32.3 pg 26.0 - 34.0 pg [facility] MCHC (RBC) [Mass/Vol] 32.4 g/dL 30.5 - 36.0 g/dL [facility] MCV (RBC) [Entitic vol] 99.7 fL 80.0 - 100.0 fL [facility] Monocytes (Bld) [#/Vol] 0.71 10*3/uL <0.87 k/uL [facility] Monocytes/100 WBC (Bld) 7.4 % [facility] Neutrophils (Bld) [#/Vol] 7.93 10*3/uL High 1.45 - 7.50 k/uL [facility] Neutrophils/100 WBC (Bld) 83.2 % [facility] Nucleated RBC (Bld) [#/Vol] <0.01 k/uL [facility] Nucleated RBC/100 WBC (Bld) [Ratio] 0.0 /100 WBC [facility] Platelet mean volume (Bld) [Entitic vol] 10.1 fL 9.0 - 12.7 fL [facility] Platelets (Bld) [#/Vol] 206 10*3/uL 150 - 400 k/uL [facility] RBC (Bld) [#/Vol] 3.78 10*6/uL Low 4.20 - 6.0 0 m/uL [facility] WBC (Bld) [#/Vol] 9.54 10*3/uL 3.70 - 11.00 k/uL [facility] CEA SerPl-mCncon 05-28-2023 Carcinoembryonic Ag [Mass/Vol] 2.2 ng/mL Normal <=2.9 [facility] Comment on above: Order Comment: Speci men Type: BLOOD SPECIMENOrdering Facility: [facility] Address: [address] [place] [address] Result Comment: Carc inoembryonic antigen test is used as an aid in monitoring response to treatment or recurrence in patients with established colorectal, breast, lung, prostatic, pancreatic, and ovarian carcinomas. Clinical correlation is required.The Carcinoembryonic antigen test was performed using the [employer] DXI paramagnetic particle chemiluminescent immunoassay method. Results obtained with different assay methods or kits cannot be used interchangeably. Performed By: #### 2 039-6 ####[facility] LABCLIA [id number] [address] [place] CNOVSPon 05-28-2023 CNOVSP Normal [facility] Comprehensive metabolic 2000 panelon 05-28-2023 Albumin [Mass/Vol] 3.8 g/dL Low 3.9-4.9 [facility] Comment on above: Order Comment: Speci men Type: BLOOD SPECIMENOrdering Facility: [facility] Address: [address] [address] Performed By: #### 2 4323-8 ####[facility] LABCLIA [id number] [place] [address] ALP [Catalytic activity/Vol] 93 U/L Normal 38-113 [facility] Comment on above: Order Comment: Speci men Type: BLOOD SPECIMENOrdering Facility: [facility] Address: [address] [place] [address] Performed By: #### 2 4323-8 ####[facility] LABCLIA [id number] [place] [address] ALT [Catalytic activity/Vol] 9 U/L Low 10-54 [facility] Comment on above: Order Comment: Speci men Type: BLOOD SPECIMENOrdering Facility: [facility] Address: [address] [place] [address] Performed By: #### 2 4323-8 ####[facility] LABCLIA [id number] [place] [address] Anion gap [Moles/Vol] 9 mmol/L Normal 9-18 [facility] Comment on above: Order Comment: Speci men Type: BLOOD SPECIMENOrdering Facility: [facility] Address: [address] [place] [address] Performed By: #### 2 4323-8 ####[facility] LABCLIA [id number] [place] [address] AST [Catalytic activity/Vol] 15 U/L Normal 14-40 [facility] Comment on above: Order Comment: Speci men Type: BLOOD SPECIMENOrdering Facility: [facility] Address: [address] [place] [address] Performed By: #### 2 4323-8 ####[facility] LABCLIA [id number] [place] [address] Bilirubin [Mass/Vol] 0.4 mg/dL Normal 0.2-1.[address] [facility] Comment on above: Order Comment: Speci men Type: BLOOD SPECIMENOrdering Facility: [facility] Address: [address] [address] Performed By: #### 2 4323-8 ####[facility] LABCLIA [id number] [place] [address] Calcium [Mass/Vol] 9.3 mg/dL Normal 8.5-10.2 [facility] Comment on above: Order Comment: Speci men Type: BLOOD SPECIMENOrdering Facility: [facility] Address: [address] [address] Performed By: #### 2 4323-8 ####FÉLIXNESTEPHANY [facility] LABCLIA [id number] [place] [address] Chloride [Moles/Vol] 105 mmol/L Normal 97-[address] [facility] Comment on above: Order Comment: Speci men Type: BLOOD SPECIMENOrdering Facility: [facility] Address: [address] [address] Performed By: #### 2 4323-8 ####[facility] LABCLIA [id number] [place] [address] CO2 [Moles/Vol] 27 mmol/L Normal 22-30 [facility] Comment on above: Order Comment: Speci men Type: BLOOD SPECIMENOrdering Facility: [facility] Address: [address] [address] Performed By: #### 2 4323-8 ####[facility] LABCLIA [id number] [place] [address] Creatinine [Mass/Vol] 1.12 mg/dL Normal 0.73-1.22 [facility] Comment on above: Order Comment: Speci men Type: BLOOD SPECIMENOrdering Facility: [facility] Address: [address] [address] Performed By: #### 2 4323-8 ####[facility] LABCLIA [id number] [place] [address] ESTIMATED GLOMERULAR FILTRATION RATE 71 mL/min/1.73m??? Normal >=60 [facility] Comment on above: Order Comment: Nazario brooks Type: BLOOD SPECIMENOrdering Facility: [facility] Address: [address] [place] [address] Result Comment: Rebekah mated Glomerular Filtration Rate [...] actual GFR. Performed By: #### 2 4323-8 ####[facility] LABCLIA [id number] [place] [address] Glucose [Mass/Vol] 86 mg/dL Normal 74-99 [facility] Comment on above: Order Comment: Speci men Type: BLOOD SPECIMENOrdering Facility: [facility] Address: [address] [place] [address] Result Comment: The [employer] Diabetes Association (ADA) provides guidance for cutoff [...] Standards of Medical Care in Diabetes 2016, [employer] Diabetes Association. Diabetes Care. 2016.39(Suppl 1). Performed By: #### 2 4323-8 ####[facility] LABCLIA [id number] [place] [address] Potassium [Moles/Vol] 3.8 mmol/L Normal 3.7-5.1 [facility] Comment on above: Order Comment: Speci men Type: BLOOD SPECIMENOrdering Facility: [facility] Address: [address] [address] Performed By: #### 2 4323-8 ####[facility] LABCLIA [id number] [place] [address] Protein [Mass/Vol] 6.1 g/dL Low 6.3-8.0 [facility] Comment on above: Order Comment: Speci men Type: BLOOD SPECIMENOrdering Facility: [facility] Address: [address] [place] [address] Performed By: #### 2 4323-8 ####[facility] LABCLIA [id number] [place] [address] Sodium [Moles/Vol] 141 mmol/L Normal 136-144 [facility] Comment on above: Order Comment: Speci men Type: BLOOD SPECIMENOrdering Facility: [facility] Address: [address] [address] Performed By: #### 2 4323-8 ####[facility] LABCLIA [id number] [place] [address] Urea nitrogen [Mass/Vol] 19 mg/dL Normal 9-24 [facility] Comment on above: Order Comment: Speci men Type: BLOOD SPECIMENOrdering Facility: [facility] Address: [address] [address] Performed By: #### 2 4323-8 ####[facility] LABCLIA [id number] [place] [address] Albumin [Mass/Vol] 3.8 g/dL Low 3.9 - 4.9 g/dL [facility] ALP [Catalytic activity/Vol] 93 U/L 38 - 113 U/L [facility] ALT [Catalytic activity/Vol] 9 U/L Low 10 - 54 U/L [facility] Anion gap [Moles/Vol] 9 mmol/L 9 - 18 mmol/L [facility] AST [Catalytic activity/Vol] 15 U/L 14 - 40 U/L [facility] Bilirubin [Mass/Vol] 0.4 mg/dL 0.2 - 1 .3 mg/dL [facility] Calcium [Mass/Vol] 9.3 mg/dL 8.5 - 10. 2 mg/dL [facility] Chloride [Moles/Vol] 105 mmol/L 97 - 10 5 mmol/L [facility] CO2 [Moles/Vol] 27 mmol/L 22 - 30 mmol/L [facility] Creatinine [Mass/Vol] 1.12 mg/dL 0.73 - 1.22 mg/dL [facility] Estimated Glomerular Filtration Rate 71 mL/min/1.73m >=60 mL/min/1.73 m [facility] Glucose [Mass/Vol] 86 mg/dL 74 - 99 mg/dL [facility] Potassium [Moles/Vol] 3.8 mmol/L 3.7 - 5.1 mmol/L [facility] Protein [Mass/Vol] 6.1 g/dL Low 6.3 - 8.0 g/dL [facility] Sodium [Moles/Vol] 141 mmol/L 136 - 144 mmol/L [facility] Urea nitrogen [Mass/Vol] 19 mg/dL 9 - 24 mg/dL [facility] PT - Assessmentson PT - Assessments ..[id number]#1.00 CD:127 [facility] PT - Consentson 05-24-2023 PT - Consents .[id number]#1.00 CD:127 [facility] PT - Home Exercise Programon 05-24-2023 PT - Home Exercise Program .[id number]#1.00 CD:127 [facility] PT - Orderson 05-24-2023 PT - Orders .[id number]#1.00 CD:127 [facility] MR cervical spine wo/w conon 05-23-2023 MR cervical spine wo/w con [address] [address] MRI Report Signed Patient: Mervat Damon MR#: [id number] : 1950 Acct:[id number] Age/Sex: 72 / M ADM Date: 05/22/23 Loc: MR Room: Type: [facility] Attending Dr: Valencia ONEAL Copies to: JM [...] Brett Crowley M.D.05/23/2023 12:40 PM Dictation Location: [address] [address] Transcribed By: [facility] 05/23/23 1240 Dictated By: Brett Crowley II, MD 05/23/23 1228 Signed By: 05/23/23 1240 Normal [facility] MR cervical spine wo/w con [facility] [employer] Other MR cervical spine wo/w con [facility] Other MR cervical spine wo/w con [address] [facility] Other MR cervical spine wo/[place] [address] [facility] Other MR cervical spine wo/w con MRI Report [facility] Other MR cervical spine wo/w con Signed [facility] Other MR cervical spine wo/w con Patient: Mervat Damon MR#: [id number] [facility] Other MR cervical spine wo/w con 4313 [facility] Other MR cervical spine wo/w con : 1950 Acct:[id number] [facility] Other MR cervical spine wo/w con Age/Sex: 72 / M ADM Date: 05/22/23 [facility] Other MR cervical spine wo/w con Loc: MR Room: Type: [facility] Other MR cervical spine wo/w con Attending Dr: Valencia Torres [employer] [facility] Other MR cervical spine wo/w con Copies to: LISA GodoyC [facility] Other MR cervical spine wo/w con Ordering Provider: LISA GodoyC [facility] Other MR cervical spine wo/w con Date of Service: 05/22/23 [facility] Other MR cervical spine wo/w con MR/MR cervical spine wo/w con: M54.12 [facility] Other MR cervical spine wo/w con MR cervical spine wo/w con 05/22/2023 9:21 PM [facility] Other MR cervical spine wo/w con SIGNS AND SYMPTOMS: Neck pain, stiffness, history of colorectal cancer [facility] Other MR cervical spine wo/w con PROTOCOL: Multiplanar multisequence MR images of the cervical spine were obtained with and without [facility] Other MR cervical spine wo/w con IV contrast [facility] Other MR cervical spine wo/w con CONTRAST: 20 mL of intravenous ProHance [facility] Other MR cervical spine wo/w con COMPARISON: 03/18/2023 and 10/20/2015 [facility] Other MR cervical spine wo/w con FINDINGS: The bones of the cervical spine are in anatomic alignment. There is preservation of [facility] Other MR cervical spine wo/w con vertebral body heights. There is intervertebral fusion at C4-C5 with anterior fusion from C5 through [facility] Other MR cervical spine wo/w con C7. This is unchanged. The marrow signal is within normal limits. The cord is normal in signal. No [facility] Other MR cervical spine wo/w con epidural or paraspinous fluid collection is appreciated. The visualized paraspinous soft tissues are [facility] Other MR cervical spine wo/w con within normal limits. The prevertebral soft tissues are within normal limits. [facility] Other MR cervical spine wo/w con At C2-C3: There is uncovertebral joint spurring and uncovertebral joint spurring. There is mild to [facility] Other MR cervical spine wo/w con moderate left neural foraminal narrowing without spinal canal narrowing. [facility] Other MR cervical spine wo/w con At C3-C4: There is a broad-based disc bulge with facet and negative joint degenerative change [facility] Other MR cervical spine wo/w con contributing to moderate bilateral neural foraminal narrowing with mild spinal canal narrowing. [facility] Other MR cervical spine wo/w con These changes are slightly worse when compared to the previous MRI. [facility] Other MR cervical spine wo/w con At C4-C5: There is intervertebral fusion with uncovertebral joint spurring and facet hypertrophy. [facility] Other MR cervical spine wo/w con There is moderate severe left and mild right neural foraminal narrowing. This mild spinal canal [facility] Other MR cervical spine wo/w con narrowing. There has been improvement in spinal canal stenosis since the previous MRI. [facility] Other MR cervical spine wo/w con At C5-C6: There is uncovertebral joint spurring and facet hypertrophy with moderate bilateral neural [facility] Other MR cervical spine wo/w con foraminal narrowing. No significant spinal canal narrowing. [facility] Other MR cervical spine wo/w con At C6-C7: There is a broad-based disc bulge with facet and uncovertebral joint degenerative change [facility] Other MR cervical spine wo/w con contributing to severe bilateral neural foraminal narrowing with mild spinal canal narrowing. [facility] Other MR cervical spine wo/w con At C7-T1: Facet hypertrophy is present bilaterally contributing to moderate bilateral neural [facility] Other MR cervical spine wo/w con foraminal narrowing. There is no significant spinal canal narrowing. [facility] Other MR cervical spine wo/w con MR/MR cervical spine wo/w con [facility] Other MR cervical spine wo/w con IMPRESSION: [facility] Other MR cervical spine wo/w con No cord compression or cord signal abnormality. [facility] Other MR cervical spine wo/w con No abnormal postcontrast enhancement. [facility] Other MR cervical spine wo/w con Significant multilevel disc, facet, and uncovertebral joint degenerative change contributing to [facility] Other MR cervical spine wo/w con varying degrees of spinal canal and neural foraminal narrowing, as detailed above. [facility] Other MR cervical spine wo/w con Impression dictated by: Brett Crowley M.D.05/23/2023 12:40 PM [facility] Other MR cervical spine wo/w con Dictation Location: [address] [address] [facility] Other MR cervical spine wo/w con Transcribed By: SOLIS 05/23/23 1240 [facility] Other MR cervical spine wo/w con Dictated By: Brett Crowley II, MD 05/23/23 1228 [facility] Other MR cervical spine wo/w con Signed By: [facility] Other MR cervical spine wo/w con 05/23/23 1240 [facility] Other PT - Orderson 05-23-2023 PT - Orders [id number]#1.00C D:127 [facility] Creatinine (Bld) [Mass/Vol]O rdered By: Valencia Torres on 05-22-2023 Creatinine [Mass/Vol] 1.3 mg/dL 0.6-1.3 [facility] Comment on above: ER/ESD physician is [...] mGy = na DAP = na [facility] Consent for Treatmenton 04-21 Consent for Treatment [id number]#1.00C D:127 [facility] Physician Orderon 05-17-2023 Physician Order [id number]#1.00 CD:127 [facility] Consent for Procedure/Surger yon 05-15-2023 Consent for Procedure/Surgery [id number]#1.00C D:127 [facility] Basic metabolic 2000 panelon 05-14-2023 Anion gap [Moles/Vol] 7 mmol/L Low 9-18 [facility] Comment on above: Order Comment: Speci men Type: BLOOD SPECIMENOrdering Facility: [facility] Address: [address] [place] [address] Performed By: #### 2 4321-2 ####[facility] LABCLIA [id number] [place] [address] Calcium [Mass/Vol] 9.3 mg/dL Normal 8.5-10.2 [facility] Comment on above: Order Comment: Speci men Type: BLOOD SPECIMENOrdering Facility: [facility] Address: [address] [place] [address] Performed By: #### 2 4321-2 ####[facility] LABCLIA [id number] [place] [address] Chloride [Moles/Vol] 105 mmol/L Normal 97-[address] [facility] Comment on above: Order Comment: Speci men Type: BLOOD SPECIMENOrdering Facility: [facility] Address: [address] [place] [address] Performed By: #### 2 4321-2 ####[facility] LABCLIA [id number] [place] [address] CO2 [Moles/Vol] 28 mmol/L Normal 22-30 [facility] Comment on above: Order Comment: Speci men Type: BLOOD SPECIMENOrdering Facility: [facility] Address: [address] [place] [address] Performed By: #### 2 4321-2 ####[facility] LABCLIA [id number] [place] [address] Creatinine [Mass/Vol] 1.08 mg/dL Normal 0.73-1.22 [facility] Comment on above: Order Comment: Speci men Type: BLOOD SPECIMENOrdering Facility: [facility] Address: [address] [place] [address] Performed By: #### 2 4321-2 ####[facility] LABCLIA [id number] [place] [address] ESTIMATED GLOMERULAR FILTRATION RATE 74 mL/min/1.73m??? Normal >=60 [facility] Comment on above: Order Comment: Nazario todd Type: BLOOD SPECIMENOrdering Facility: [facility] Address: [address] [place] [address] Result Comment: Rebekah mated Glomerular Filtration Rate [...] actual GFR. Performed By: #### 2 4321-2 ####[facility] LABCLIA [id number] [place] [address] Glucose [Mass/Vol] 106 mg/dL High 74-99 [facility] Comment on above: Order Comment: Nazario todd Type: BLOOD SPECIMENOrdering Facility: [facility] Address: [address] [place] [address] Result Comment: The [place] Diabetes Association (ADA) provides guidance for cutoff [...] Standards of Medical Care in Diabetes 2016, [place] Diabetes Association. Diabetes Care. 2016.39(Suppl 1). Performed By: #### 2 4321-2 ####[facility] LABCLIA [id number] [place] [address] Potassium [Moles/Vol] 3.8 mmol/L Normal 3.7-5.1 [facility] Comment on above: Order Comment: Speci men Type: BLOOD SPECIMENOrdering Facility: [facility] Address: [address] [place] [address] Performed By: #### 2 4321-2 ####[facility] LABCLIA [id number] [place] [address] Sodium [Moles/Vol] 140 mmol/L Normal 136-144 [facility] Comment on above: Order Comment: Speci men Type: BLOOD SPECIMENOrdering Facility: [facility] Address: [address] [place] [address] Performed By: #### 2 4321-2 ####[facility] LABCLIA [id number] [place] [address] Urea nitrogen [Mass/Vol] 22 mg/dL Normal 9-24 [facility] Comment on above: Order Comment: Speci men Type: BLOOD SPECIMENOrdering Facility: [facility] Address: [address] [place] [address] Performed By: #### 2 4321-2 ####[facility] LABCLIA [id number] [place] [address] Anion gap [Moles/Vol] 7 mmol/L Low 9 - 18 mmol/L [facility] Calcium [Mass/Vol] 9.3 mg/dL 8.5 - 10. 2 mg/dL [facility] Chloride [Moles/Vol] 105 mmol/L 97 - 10 5 mmol/L [facility] CO2 [Moles/Vol] 28 mmol/L 22 - 30 mmol/L [facility] Creatinine [Mass/Vol] 1.08 mg/dL 0.73 - 1.22 mg/dL [facility] Estimated Glomerular Filtration Rate 74 mL/min/1.73m >=60 mL/min/1.73 m [facility] Glucose [Mass/Vol] 106 mg/dL High 74 - 99 mg/dL [facility] Potassium [Moles/Vol] 3.8 mmol/L 3.7 - 5.1 mmol/L [facility] Sodium [Moles/Vol] 140 mmol/L 136 - 144 mmol/L [facility] Urea nitrogen [Mass/Vol] 22 mg/dL 9 - 24 mg/dL [facility] CNPNon 05-14-2023 CNPN [facility] Consent for Treatmenton 04-20 Consent for Treatment [id number]#1.00 CD:127 [facility] Consultation Noteon 05-07-20 Consultation Note Patient: MERVAT DAMON Age: 72 years Sex: Male : 1950 Associated Diagnoses: None Author: Anthony ARRINGTON, Bryon Matos Basic Information Accompanied by: No one. Source [...] cap(s), Oral, Daily hydrocortisone Top 2.5% Crm [place] 325 mg-5 mg oral tablet 1 tab(s), PRN, Oral, q6hr ondansetron 4 mg Tab 8 mg = 2 tab(s), PRN, Oral, q8hr predniSONE 5 mg Tab 5 mg = 1 tab(s), Oral, Daily prochlorperazine 10 mg Tab valsartan 80 mg Tab 80 mg = 1 tab(s), Oral, Daily Vitamin C 1,000 mg, Oral, Daily Problem list: All Problems BMI 31.0-31.9,adult / SNOMED CT 950729458 / Confirmed BPH with urinary obstruction / SNOMED CT 5146723634 / Confirmed Bulging of cervical intervertebral disc / SNOMED CT 7947788040 / Confirmed Cervical spinal stenosis / SNOMED CT 796723997 / Confirmed Erectile dysfunction / SNOMED CT 1363631121 / Confirmed Hammertoe / SNOMED CT 332358354 / Confirmed Inguinal hernia, right / SNOMED CT 183872998 / Confirmed Neck pain without injury / SNOMED CT 174005784 / Confirmed Non-ischemic cardiomyopathy / SNOMED CT 393529384 / Confirmed RA - Rheumatoid arthritis / SNOMED CT 0393843781 / Confirmed Rectal cancer / SNOMED CT 829748951 / Confirmed Tobacco non-user / SNOMED CT 837399624 / Confirmed Histories Past Medical History: Active RA - Rheumatoid arthritis (9101431548) Cervical spinal stenosis (220651534) Family History: Primary malignant neoplasm of bladder Father Cancer...... Mother Comments: 07/07/2018 12:11 EDT - Paulette Shah RN Pancreatic Sister Comments: 07/07/2018 12:11 EDT - Paulette Shah RN liver Procedure history: Sigmoidoscopy (07051581) on 08/20/2022 at 71 Years. Cataract extraction and insertion of intraocular lens (8071491581) on 02/24/2019 at 68 Years. Comments: 02/24/2019 17:10 EDT - Naseem VAUGHAN, Kathie R left Right eye cataract extraction and insertion of intraocular lens (8379469987) on 02/12/2019 at 68 Years. Laparoscopic repair of inguinal hernia (77410910) on 01/01/2018 at 67 Years. Comments: 01/01/2018 18:31 JESUT Mayra Alexandra RN, Vanessa Dahl ROBOTIC ASSISTED RIGHT INGUINAL HERNIA REPAIR WITH MESH LT STENT (91221449) on 05/23/2016 at 65 Years. LT ESWL ([id number]) on 03/22/2016 at 65 Years. Comments: 04/04/2019 8:10 Jennie Palomino MA 01/05/2016, 03/08/2016 RT ESWL ([id number]) on 12/22/2015 at 65 Years. Comments: 04/04/2019 8:09 Jennie Palomino MA 12/15/2015 Cystoscopy (77892654) on 09/28/2015 at 64 Years. Cervical spinal fusion x2 (080899696). Colonoscopy (046069300). Hammer toe operation (540991). Cervical spinal fusion (715635115). Hemorrhoidectomy (59392938). Social History Social & Psychosocial Habits Alcohol 12/12/2015 Risk Assessment: Denies Alcohol Use 08/29/2020 Type: Beer, Wine Has alcohol use interfered with work or home life? No Do you ever drink more than intended? No Has anyone been hurt or at risk by your drinking? 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 [facility] Comment on above: Result Comment: Elec tronically Signed By: Anthony ARRINGTON, Bryon Matos\.br\Date and Time Signed: 05/07/23 14:20 EDT HIPAA Forms Officeon 023 HIPAA Forms Office [id number]#1.00 CD:127 [facility] Legal Correspondence Officeo n 05-07-2023 Legal Correspondence Office [id number]#1.00 CD:127 [facility] Legal Correspondence Office [id number]#1.00 CD:127 [facility] Office/Clinic Note-Physician on 05-07-2023 Office/Clinic Note-Physician [id number]#1.00 CD:127 [facility] Orders Officeon 05-07-2023 Orders Office [id number]#1.00 CD:127 [facility] Patient Correspondenceon Patient Correspondence [id number]#1.00 CD:127 [facility] Patient Correspondence [id number]#1.00 CD:127 [facility] Patient Correspondence [id number]#1.00 CD:127 [facility] Patient Correspondence [id number]#1.00 CD:127 [facility] Patient Correspondence [id number]#1.00 CD:127 [facility] Patient Correspondence [id number]#1.00 CD:127 [facility] Patient History Officeon Patient History Office [id number]#1.00 CD:127 [facility] Physician Orderon 05-07-2023 Physician Order [id number]#1.00 CD:127 [facility] CNPNon 05-03-2023 CNPN [facility] 05-01-2023 Outside Labs [id number]#1.00 CD:127 [facility] Progress Note-Nurseon 2022 Progress Note-Nurse [id number]#1.00 CD:127 [facility] Consent for Treatmenton 04-20 Consent for Treatment [id number]#1.00C D:127 [facility] Heart and Vascular Office/Cl inic Noteon [...] intact- no rash or concerning lesions Procedure [facility]- 01/02/19 CONCLUSIONS: 1. Essentially normal coronary arteriograms [...] 180 tab(s), Refills(s) 3, Pharmacy: [facility] #[id number], 188, cm, 04/29/23 8:41:00 EDT, Height/Length Dosing, 106.8, kg, 04/29/23 8:41:00 EDT, Weight Dosing hydrochlorothiazide, 12.5 mg = 1 cap(s), Oral, Daily, # 90 cap(s), Refills(s) 3, Pharmacy: [facility] #[id number], 188, cm, 04/29/23 8:41:00 EDT, Height/Length Dosing, 106.8, kg, 04/29/23 8:41:00 EDT, Weight Dosing valsartan, 80 mg = 1 tab(s), Oral, Daily, # 90 tab(s), Refills(s) 3, Pharmacy: [facility] #[id number], 188, cm, 04/29/23 8:41:00 EDT, Height/Length Dosing, 106.8, kg, 04/29/23 8:41:00 EDT, Weight Dosing Follow-up With When Contact Information Dilan ARRINGTON, Santiago Medina Within 6 months Additional Instructions: Call for sooner apt with new/worsening symptoms Patient Education Heart-Healthy Eating Plan, [id number]-zm-[id number] Problem List/Past Medical History Ongoing BMI 31.0-31.9,adult [...] renal calcu (more content not included)... [facility] Comment on above: Result Comment: Elec tronically Signed By: LAURA JESSICA, Cyndee Dumont\.br\Date and Time Signed: 04/29/23 09:36 EDT Patient [...] cheese. Wh (more content not included)... [facility] Outside Records Officeon Outside Records Office [id number]#1.00 CD:127 [facility] Referrals Officeon Referrals Office [id number]#1.00 CD:127 [facility] MRI RECTUM WO/W IVCONon -2 MRI RECTUM WO/W IVCON * * *Final [...] on Apr 19 2023 7:18AM EST [id number] Normal [facility] CNPNon 04-17-2023 CNPN Normal [facility] Consultation Noteon 04-17-20 23 Consultation Note [id number] D:127 Normal [facility] CBC W Auto Differential pane l (Bld)on 04-16-2023 Basophils (Bld) [#/Vol] 0.07 10*3/uL Normal <0.11 [facility] Comment on above: Order Comment: Speci men Type: BLOOD SPECIMENOrdering Facility: [facility] Address: [address] [address] Performed By: #### 5 7021-8 ####[facility] LABCLIA [id number] [place] [address] Basophils/100 WBC (Bld) 0.8 % Normal [facility] Comment on above: Order Comment: Speci men Type: BLOOD SPECIMENOrdering Facility: [facility] Address: [address] [address] Performed By: #### 5 7021-8 ####[facility] LABCLIA [id number] [place] [address] Differential cell count method Nom (Bld) Auto Normal [facility] Comment on above: Order Comment: Speci men Type: BLOOD SPECIMENOrdering Facility: [facility] Address: [address] [place] [address] Performed By: #### 5 7021-8 ####[facility] LABCLIA [id number] [place] [address] Eosinophils (Bld) [#/Vol] 0.14 10*3/uL Normal <0.46 [facility] Comment on above: Order Comment: Speci men Type: BLOOD SPECIMENOrdering Facility: [facility] Address: [address] [place] [address] Performed By: #### 5 7021-8 ####[facility] LABCLIA [id number] [place] [address] Eosinophils/100 WBC (Bld) 1.7 % Normal [facility] Comment on above: Order Comment: Speci men Type: BLOOD SPECIMENOrdering Facility: [facility] Address: [address] [place] [address] Performed By: #### 5 7021-8 ####[facility] LABCLIA [id number] [place] [address] Erythrocyte distribution width (RBC) [Ratio] 17.3 % High 11.5-15.0 [facility] Comment on above: Order Comment: Speci men Type: BLOOD SPECIMENOrdering Facility: [facility] Address: [address] [place] [address] Performed By: #### 5 7021-8 ####[facility] LABCLIA [id number] [place] [address] Hematocrit (Bld) [Volume fraction] 35.2 % Low 39.0-51.0 [facility] Comment on above: Order Comment: Speci men Type: BLOOD SPECIMENOrdering Facility: [facility] Address: [address] [place] [address] Performed By: #### 5 7021-8 ####[facility] LABCLIA [id number] [place] [address] Hemoglobin (Bld) [Mass/Vol] 11.3 g/dL Low 13.0-17.0 [facility] Comment on above: Order Comment: Speci men Type: BLOOD SPECIMENOrdering Facility: [facility] Address: [address] [place] [address] Performed By: #### 5 7021-8 ####[facility] LABCLIA [id number] [place] [address] Immature granulocytes (Bld) [#/Vol] 0.13 10*3/uL High <0.10 [facility] Comment on above: Order Comment: Speci men Type: BLOOD SPECIMENOrdering Facility: [facility] Address: [address] [place] [address] Performed By: #### 5 7021-8 ####[facility] LABIA [id number] [place] [address] Immature granulocytes/100 WBC (Bld) 1.6 % Normal [facility] Comment on above: Order Comment: Speci men Type: BLOOD SPECIMENOrdering Facility: [facility] Address: [address] [place] [address] Performed By: #### 5 7021-8 ####[facility] LABCLIA [id number] [place] [address] Lymphocytes (Bld) [#/Vol] 1.09 10*3/uL Normal 1.00-4.00 [facility] Comment on above: Order Comment: Speci men Type: BLOOD SPECIMENOrdering Facility: [facility] Address: [address] [place] [address] Performed By: #### 5 7021-8 ####[facility] LABCLIA [id number] [place] [address] Lymphocytes/100 WBC (Bld) 13.1 % Normal [facility] Comment on above: Order Comment: Speci men Type: BLOOD SPECIMENOrdering Facility: [facility] Address: [address] [place] [address] Performed By: #### 5 7021-8 ####[facility] LABCLIA [id number] [place] [address] MCH (RBC) [Entitic mass] 31.9 pg Normal 26.0-34.0 [facility] Comment on above: Order Comment: Speci men Type: BLOOD SPECIMENOrdering Facility: [facility] Address: [address] [place] [address] Performed By: #### 5 7021-8 ####[facility] LABIA [id number] [place] [address] MCHC (RBC) [Mass/Vol] 32.1 g/dL Normal 30.5-36.0 [facility] Comment on above: Order Comment: Speci men Type: BLOOD SPECIMENOrdering Facility: [facility] Address: [address] [place] [address] Performed By: #### 5 7021-8 ####[facility] LABCLIA [id number] [place] [address] MCV (RBC) [Entitic vol] 99.4 fL Normal 80.0-100.0 [facility] Comment on above: Order Comment: Speci men Type: BLOOD SPECIMENOrdering Facility: [facility] Address: [address] [place] [address] Performed By: #### 5 7021-8 ####[facility] LABIA [id number] [place] [address] Monocytes (Bld) [#/Vol] 0.75 10*3/uL Normal <0.87 [facility] Comment on above: Order Comment: Speci men Type: BLOOD SPECIMENOrdering Facility: [facility] Address: [address] [address] Performed By: #### 5 7021-8 ####[facility] LABCLIA [id number] [place] [address] Monocytes/100 WBC (Bld) 9.0 % Normal [facility] Comment on above: Order Comment: Speci men Type: BLOOD SPECIMENOrdering Facility: [facility] Address: [address] [place] [address] Performed By: #### 5 7021-8 ####[facility] LABCLIA [id number] [place] [address] Neutrophils (Bld) [#/Vol] 6.14 10*3/uL Normal 1.45-7.50 [facility] Comment on above: Order Comment: Speci men Type: BLOOD SPECIMENOrdering Facility: [facility] Address: [address] [address] Performed By: #### 5 7021-8 ####[facility] LABIA [id number] [place] [address] Neutrophils/100 WBC (Bld) 73.8 % Normal [facility] Comment on above: Order Comment: Speci men Type: BLOOD SPECIMENOrdering Facility: [facility] Address: [address] [place] [address] Performed By: #### 5 7021-8 ####[facility] LABCLIA [id number] [place] [address] Nucleated RBC (Bld) [#/Vol] 10*3/uL Normal <0.01 [facility] Comment on above: Order Comment: Speci men Type: BLOOD SPECIMENOrdering Facility: [facility] Address: [address] [place] [address] Performed By: #### 5 7021-8 ####[facility] LABCLIA [id number] [place] [address] Nucleated RBC/100 WBC (Bld) [Ratio] 0.0 /100 WBC Normal [facility] Comment on above: Order Comment: Speci men Type: BLOOD SPECIMENOrdering Facility: [facility] Address: [address] [place] [address] Performed By: #### 5 7021-8 ####[facility] LABCLIA [id number] [place] [address] Platelet mean volume (Bld) [Entitic vol] 10.0 fL Normal 9.0-12.7 [facility] Comment on above: Order Comment: Speci men Type: BLOOD SPECIMENOrdering Facility: [facility] Address: [address] [place] [address] Performed By: #### 5 7021-8 ####[facility] LABCLIA [id number] [place] [address] Platelets (Bld) [#/Vol] 227 10*3/uL Normal 150-400 [facility] Comment on above: Order Comment: Speci men Type: BLOOD SPECIMENOrdering Facility: [facility] Address: [address] [place] [address] Performed By: #### 5 7021-8 ####[facility] LABIA [id number] [place] [address] RBC (Bld) [#/Vol] 3.54 10*6/uL Low 4.20-6.00 [facility] Comment on above: Order Comment: Speci men Type: BLOOD SPECIMENOrdering Facility: [facility] Address: [address] [place] [address] Performed By: #### 5 7021-8 ####[facility] LABIA [id number] [place] [address] WBC (Bld) [#/Vol] 8.32 10*3/uL Normal 3.70-11.00 [facility] Comment on above: Order Comment: Speci men Type: BLOOD SPECIMENOrdering Facility: [facility] Address: [address] [place], [place] [address] [address] Performed By: #### 5 7021-8 ####[facility] LABCLIA [id number] [place] [address] Basophils (Bld) [#/Vol] 0.07 10*3/uL <0.11 k/uL [facility] Basophils/100 WBC (Bld) 0.8 % [facility] Differential cell count method Nom (Bld) Auto [facility] Eosinophils (Bld) [#/Vol] 0.14 10*3/uL <0.46 k/uL [facility] Eosinophils/100 WBC (Bld) 1.7 % [facility] Erythrocyte distribution width (RBC) [Ratio] 17.3 % High 11.5 - 15.0 % [facility] Hematocrit (Bld) [Volume fraction] 35.2 % Low 39.0 - 51.0 % [facility] Hemoglobin (Bld) [Mass/Vol] 11.3 g/dL Low 13.0 - 17.0 g/dL [facility] Immature granulocytes (Bld) [#/Vol] 0.13 10*3/uL High <0.10 k/uL [facility] Immature granulocytes/100 WBC (Bld) 1.6 % [facility] Lymphocytes (Bld) [#/Vol] 1.09 10*3/uL 1.00 - 4.00 k/uL [facility] Lymphocytes/100 WBC (Bld) 13.1 % [facility] MCH (RBC) [Entitic mass] 31.9 pg 26.0 - 34.0 pg [facility] MCHC (RBC) [Mass/Vol] 32.1 g/dL 30.5 - 36.0 g/dL [facility] MCV (RBC) [Entitic vol] 99.4 fL 80.0 - 100.0 fL [facility] Monocytes (Bld) [#/Vol] 0.75 10*3/uL <0.87 k/uL [facility] Monocytes/100 WBC (Bld) 9.0 % [facility] Neutrophils (Bld) [#/Vol] 6.14 10*3/uL 1.45 - 7.50 k/uL [facility] Neutrophils/100 WBC (Bld) 73.8 % [facility] Nucleated RBC (Bld) [#/Vol] <0.01 k/uL [facility] Nucleated RBC/100 WBC (Bld) [Ratio] 0.0 /100 WBC [facility] Platelet mean volume (Bld) [Entitic vol] 10.0 fL 9.0 - 12.7 fL [facility] Platelets (Bld) [#/Vol] 227 10*3/uL 150 - 400 k/uL [facility] RBC (Bld) [#/Vol] 3.54 10*6/uL Low 4.20 - 6.0 0 m/uL [facility] WBC (Bld) [#/Vol] 8.32 10*3/uL 3.70 - 11.00 k/uL [facility] CEA SerPl-mCncon 04-16-2023 Carcinoembryonic Ag [Mass/Vol] 2.1 ng/mL Normal <=2.9 [facility] Comment on above: Order Comment: Speci men Type: BLOOD SPECIMENOrdering Facility: [facility] Address: [address] [place] [address] Result Comment: Carc inoembryonic antigen test is used as an aid in monitoring response to treatment or recurrence in patients with established colorectal, breast, lung, prostatic, pancreatic, and ovarian carcinomas. Clinical correlation is required.The Carcinoembryonic antigen test was performed using the Korina Stanfield Unicel DXI paramagnetic particle chemiluminescent immunoassay method. Results obtained with different assay methods or kits cannot be used interchangeably. Performed By: #### 2 039-6 ####[facility] LABCLIA [id number] [address] [place] CNOVSPon 04-16-2023 CNOVSP Normal [facility] Comprehensive metabolic 2000 panelon 04-16-2023 Albumin [Mass/Vol] 3.8 g/dL Low 3.9-4.9 [facility] Comment on above: Order Comment: Speci men Type: BLOOD SPECIMENOrdering Facility: [facility] Address: [address] [place], [place] [address] Performed By: #### 2 4323-8 ####[facility] LABCLIA [id number] [place] [address] ALP [Catalytic activity/Vol] 88 U/L Normal 38-113 [facility] Comment on above: Order Comment: Speci men Type: BLOOD SPECIMENOrdering Facility: [facility] Address: [address] [address] Performed By: #### 2 4323-8 ####[facility] LABCLIA [id number] [place] [address] ALT [Catalytic activity/Vol] 11 U/L Normal 10-54 [facility] Comment on above: Order Comment: Speci men Type: BLOOD SPECIMENOrdering Facility: [facility] Address: [address] [place] [address] Performed By: #### 2 4323-8 ####[facility] LABCLIA [id number] [place] [address] Anion gap [Moles/Vol] 11 mmol/L Normal 9-18 [facility] Comment on above: Order Comment: Speci men Type: BLOOD SPECIMENOrdering Facility: [facility] Address: [address] [address] Performed By: #### 2 4323-8 ####[facility] LABCLIA [id number] [place] [address] AST [Catalytic activity/Vol] 16 U/L Normal 14-40 [facility] Comment on above: Order Comment: Speci men Type: BLOOD SPECIMENOrdering Facility: [facility] Address: [address] [address] Performed By: #### 2 4323-8 ####[facility] LABCLIA [id number] [place] [address] Bilirubin [Mass/Vol] 0.4 mg/dL Normal 0.2-1.[address] [facility] Comment on above: Order Comment: Speci men Type: BLOOD SPECIMENOrdering Facility: [facility] Address: [address] [place] [address] Performed By: #### 2 4323-8 ####[facility] LABCLIA [id number] [place] [address] Calcium [Mass/Vol] 9.5 mg/dL Normal 8.5-10.2 [facility] Comment on above: Order Comment: Speci men Type: BLOOD SPECIMENOrdering Facility: [facility] Address: [address] [place] [address] Performed By: #### 2 4323-8 ####[facility] LABCLIA [id number] [place] [address] Chloride [Moles/Vol] 107 mmol/L High 97-[address] [facility] Comment on above: Order Comment: Speci men Type: BLOOD SPECIMENOrdering Facility: [facility] Address: [address] [place] [address] Performed By: #### 2 4323-8 ####[facility] LABCLIA [id number] [place] [address] CO2 [Moles/Vol] 25 mmol/L Normal 22-30 [facility] Comment on above: Order Comment: Speci men Type: BLOOD SPECIMENOrdering Facility: [facility] Address: [address] [place] [address] Performed By: #### 2 4323-8 ####[facility] LABCLIA [id number] [place] [address] Creatinine [Mass/Vol] 1.10 mg/dL Normal 0.73-1.22 [facility] Comment on above: Order Comment: Speci men Type: BLOOD SPECIMENOrdering Facility: [facility] Address: [address] [place] [address] Performed By: #### 2 4323-8 ####[facility] LABCLIA [id number] [place] [address] ESTIMATED GLOMERULAR FILTRATION RATE 72 mL/min/1.73m??? Normal >=60 [facility] Comment on above: Order Comment: Speci men Type: BLOOD SPECIMENOrdering Facility: [facility] Address: [address] [phone] Result Comment: Rebekah mated Glomerular Filtration Rate [...] actual GFR. Performed By: #### 2 4323-8 ####[facility] LABCLIA [id number] [place] [address] Glucose [Mass/Vol] 126 mg/dL High 74-99 [facility] Comment on above: Order Comment: Nazario brooks Type: BLOOD SPECIMENOrdering Facility: [facility] Address: [address] [place] [address] Result Comment: The [employer] Diabetes Association (ADA) provides guidance for cutoff [...] Standards of Medical Care in Diabetes 2016, [employer] Diabetes Association. Diabetes Care. 2016.39(Suppl 1). Performed By: #### 2 4323-8 ####[facility] LABCLIA [id number] [place] [address] Potassium [Moles/Vol] 3.2 mmol/L Low 3.7-5.1 [facility] Comment on above: Order Comment: Nazario brooks Type: BLOOD SPECIMENOrdering Facility: [facility] Address: [address] [id number] Performed By: #### 2 4323-8 ####[facility] LABCLIA [id number] [place] [address] Protein [Mass/Vol] 6.2 g/dL Low 6.3-8.0 [facility] Comment on above: Order Comment: Speci men Type: BLOOD SPECIMENOrdering Facility: [facility] Address: [address] [place] [address] Performed By: #### 2 4323-8 ####[facility] LABCLIA [id number] [place] [address] Sodium [Moles/Vol] 143 mmol/L Normal 136-144 [facility] Comment on above: Order Comment: Speci men Type: BLOOD SPECIMENOrdering Facility: [facility] Address: [address] [place] [address] Performed By: #### 2 4323-8 ####[facility] LABCLIA [id number] [place] [address] Urea nitrogen [Mass/Vol] 22 mg/dL Normal 9-24 [facility] Comment on above: Order Comment: Speci men Type: BLOOD SPECIMENOrdering Facility: [facility] Address: [address] [place] [address] Performed By: #### 2 4323-8 ####[facility] LABCLIA [id number] [place] [address] Albumin [Mass/Vol] 3.8 g/dL Low 3.9 - 4.9 g/dL [facility] ALP [Catalytic activity/Vol] 88 U/L 38 - 113 U/L [facility] ALT [Catalytic activity/Vol] 11 U/L 10 - 54 U/L [facility] Anion gap [Moles/Vol] 11 mmol/L 9 - 18 mmol/L [facility] AST [Catalytic activity/Vol] 16 U/L 14 - 40 U/L [facility] Bilirubin [Mass/Vol] 0.4 mg/dL 0.2 - 1 .3 mg/dL [facility] Calcium [Mass/Vol] 9.5 mg/dL 8.5 - 10. 2 mg/dL [facility] Chloride [Moles/Vol] 107 mmol/L High 97 - 10 5 mmol/L [facility] CO2 [Moles/Vol] 25 mmol/L 22 - 30 mmol/L [facility] Creatinine [Mass/Vol] 1.10 mg/dL 0.73 - 1.22 mg/dL [facility] Estimated Glomerular Filtration Rate 72 mL/min/1.73m >=60 mL/min/1.73 m [facility] Glucose [Mass/Vol] 126 mg/dL High 74 - 99 mg/dL [facility] Potassium [Moles/Vol] 3.2 mmol/L Low 3.7 - 5.1 mmol/L [facility] Protein [Mass/Vol] 6.2 g/dL Low 6.3 - 8.0 g/dL [facility] Sodium [Moles/Vol] 143 mmol/L 136 - 144 mmol/L [facility] Urea nitrogen [Mass/Vol] 22 mg/dL 9 - 24 mg/dL [facility] XR cerv spine AP/LAT/FLX/EXT on 04-11-2023 XR cerv spine AP/LAT/FLX/EXT [facility] [place] [address] XRay Report Signed Patient: Mervat Damon MR#: [id number] : 1950 Acct:[id number] Age/Sex: 72 / M ADM Date: 04/11/23 Loc: XD Room: Type: [facility] Attending Dr: Valencia ONEAL Copies to: JM Godoy Ordering Provider: JM Godoy Date of Service: 04/11/23 XR/XR hips BI 4V adult: M54.12 ([id number]) XR/XR cerv spine AP/LAT/FLX/EXT: M54.12 CLINICAL HISTORY: [...] Viola Santiago M.D.04/11/2023 11:02 AM Dictation Location: [address] [address] Transcribed By: [facility] 04/11/23 1102 Dictated By: Viola Santiago MD 04/11/23 1054 Signed By: 04/11/23 1102 [facility] SURGICAL PATHOLOGYon 023 Case Report Surgical Pathology Report Case: [id number] Authorizing Provider: Deborah Norman MD Collected: 04/09/2023 01:00 PM Ordering Location: Procedures Received: 04/09/2023 02:35 PM Pathologist: Aries Lynch MD Specimen: ANAL CANAL BIOPSY, polyp [facility] FINAL DIAGNOSIS A. Anal canal, polyp , biopsy: - Squamous mucosa polyp. [facility] Gross Description A. ANAL CANAL BIOPSY Received in formalin is one santos-martínez polypoid segment of tissue measuring 0.3 x 0.3 x 0.2 cm. No stalk is present. The line of resection is noted. The specimen is not sectioned and totally submitted in one cassette. Gross examination performed at [facility], [address] [place] [address] J 04/09/2023 7:48 PM [facility] Performing Lab Diagnostic interpretation performed at [facility], [address] [id number] CLIA# [id number] Biostatistics Manager: Aries Lynch M.D. [facility] ANES POSTPROC EVALon 023 ANES POSTPROC EVAL HNO ID: [id number] Author: Deborah Gomez MD Service: Anesthesiology Author [...] April 09, 2023 TIME: 2:09 PM CSN: [id number] [facility] ANES PRE-OPon 04-09-2023 ANES PRE-OP HNO ID: [id number] Author: Deborah Gomez MD Service: Anesthesiology Author [...] information obtained (more content not included)... Normal [facility] COLONOSCOPY DIAGNOSTICon [facility] Colonoscopyon 04-09-2023 Colonoscopy [facility] Gastrointestinal Endoscopy Patient Name: Mervat Damon Procedure Date: 04/09/2023 12:15 PM Date of : 1950 Admit Type: Outpatient Age: 72 Room: [address] [address] Gender: Male Note Status: Finalized Attending MD: [...] the patient. Procedure Code(s): --- Professional --- 75460, Colonoscopy, flexible; with removal of tumor(s), polyp(s), or other lesion(s) by snare technique CPT copyright 2020 [employer]. All rights reserved. The codes documented in this report are preliminary and upon certified medical coder review may be revised to meet [...] Loss: Estimated blood loss was minimal. Normal [facility] HISTORY PHYSICALon 3 HISTORY PHYSICAL HNO ID: [id number] Author: Tova Orlando MD Service: Colorectal Author [...] DATE: April 09, 2023 TIME: 12:18 PM [facility] SURGICAL PATHOLOGYon 023 CASE REPORT [facility] Comment on above: Order Comment: Speci men Type: TISSUE SPECIMENOrdering Facility: [facility] Address: [address] [place] [address] Result Comment: Surg ica Pathology Report Case: [id number] Authorizing Provider: Deborah Norman MD Collected: 04/09/2023 01:00 PM Ordering Location: Procedures Received: 04/09/2023 02:35 PM Pathologist: Aries Lynch MD Specimen: ANAL CANAL BIOPSY, polyp Performed By: #### S ####[facility] LABORATORYCLIA [id number] [address] LABCLIA [id number] [address] FINAL DIAGNOSIS Normal [facility] ital Comment on above: Order Comment: Speci men Type: TISSUE SPECIMENOrdering Facility: [facility] Address: [address] [place] [address] Result Comment: A. A nal canal, polyp, biopsy: - Squamous mucosa polyp. Performed By: #### S ####[facility] LABORATORYCLIA [id number] [address] LABCLIA [id number] [address] OF [facility] FINAL PERFORMING LAB Normal [facility] Comment on above: Order Comment: Speci men Type: TISSUE SPECIMENOrdering Facility: [facility] Address: [address] [address] Result Comment: Diag nostic interpretation performed at [facility], [address] [address] CLIA# [id number] Biostatistics Manager: Aries Lynch M.D. Performed By: #### S ####[facility] [id number] [address] LABCLIA [id number] [address] GROSS DESCRIPTION Normal [facility] Comment on above: Order Comment: Speci men Type: TISSUE SPECIMENOrdering Facility: [facility] Address: [address] [place] [address] Result Comment: A. A NAL CANAL BIOPSY Received in formalin is one santos-martínez polypoid segment of tissue measuring 0.3 x 0.3 x 0.2 cm. No stalk is present. The line of resection is noted. The specimen is not sectioned and totally submitted in one cassette. Gross examination performed at [facility], [facility] [place] [address] JT 04/09/2023 7:48 PM Performed By: #### S ####[facility] [id number] [address] LABCLIA [id number] [place] [address] [place] Family Medicine Office/Clini c Noteon 04-02-2023 Family Medicine Office/Clinic Note HPI Staff Littlejohn is a 72 year old male who presents with C/O neck pain. This has been a concern for about 3 weeks. Reports he was initially evaluated at [facility] on 03/18/23, The patient presented with [...] prescription for Zithromax for pneumonia. Will give [place] and Flexeril for his muscle spasm/strain. He [...] taper, # 100 tab(s), Refills(s) 3, Pharmacy: [facility] #[id number], 188, cm, 04/02/23 10:50:00 EDT, Height/Length Dosing, 100, kg, 04/02/23 10:50:00 EDT, Weight Dosing 2. RA - Rheumatoid arthritis (M06.9: Rheumatoid arthritis, unspecified) see #1 Ordered: predniSONE, 5 mg = 1 tab(s), Oral, Daily, start after taper, # 100 tab(s), Refills(s) 3, Pharmacy: [facility] #[id number], 188, cm, 04/02/23 10:50:00 EDT, Height/Length Dosing, 100, kg, 04/02/23 10:50:00 EDT, Weight Dosing 3. Non-ischemic cardiomyopathy (I42.8: Other cardiomyopathies) medically managed Orders: acetaminophen-hydrocodo ne, 1 tab(s), Oral, q6hr as needed for pain, 10 tab(s), Refill(s) 0, [facility] #[id number], 188, cm, 04/02/23 10:50:00 EDT, Height/Length Dosing, 100, kg, 04/02/23 10:50:00 EDT, Weight Dosing methocarbamol, 500 mg = 1 tab(s), Oral, QID, X 7 day(s), # 28 tab(s), Refills(s) 0, [id number], 188, rah, 04/02/23 10:50:00 EDT, Height/Length Dosing, 100, kg, 04/02/23 10:50:00 EDT, Weight Dosing predniSONE, See Instructions, Take 5 tabs po daily x 3 days then Take 4 tabs daily x 3 days then Take 3 tabs daily x 3 days Take 2 tabs daily x 3 days Take 1 tab daily x 3 days, # 45 tab(s), Refills(s) 0, [id number], 188, rah, 10/24/22 10:33... predniSONE, 0 = 1 -, Oral, As Directed, Take 5 tabs by mouth daily x3 days, 4 daily x3 days, 3 daily x3 (more content not included)... Normal [facility] Comment on above: Result Comment: Elec tronically Signed By: Lorenzo OLSON DO\.br\Date and Time Signed: 04/02/23 11:24 EDT [facility] Consultation Noteon 03-21-20 Consultation Note [id number]#1.00C D:127 [facility] 03-20-2023 [facility] CBC W Auto Differential pane l (Bld)on 03-19-2023 Basophils (Bld) [#/Vol] 0.03 10*3/uL Normal <0.11 [facility] Comment on above: Order Comment: Speci men Type: BLOOD SPECIMENOrdering Facility: [facility] Address: [address] [place] [id number] Performed By: #### 5 7021-8 ####[facility] LABCLIA [id number] [place] [address] Basophils/100 WBC (Bld) 0.4 % Normal [facility] Comment on above: Order Comment: Speci men Type: BLOOD SPECIMENOrdering Facility: [facility] Address: [address] [place] [address] Performed By: #### 5 7021-8 ####[facility] LABCLIA [id number] [place] [address] Differential cell count method Nom (Bld) Auto Normal [facility] Comment on above: Order Comment: Speci men Type: BLOOD SPECIMENOrdering Facility: [facility] Address: [address] [place] [address] Performed By: #### 5 7021-8 ####[facility] LABCLIA [id number] [place] [address] Eosinophils (Bld) [#/Vol] 0.23 10*3/uL Normal <0.46 [facility] Comment on above: Order Comment: Speci men Type: BLOOD SPECIMENOrdering Facility: [facility] Address: [address] [place] [address] Performed By: #### 5 7021-8 ####[facility] LABCLIA [id number] [place] [address] Eosinophils/100 WBC (Bld) 2.8 % Normal [facility] Comment on above: Order Comment: Speci men Type: BLOOD SPECIMENOrdering Facility: [facility] Address: [address] [place] [address] Performed By: #### 5 7021-8 ####[facility] LABCLIA [id number] [place] [address] Erythrocyte distribution width (RBC) [Ratio] 16.1 % High 11.5-15.0 [facility] Comment on above: Order Comment: Speci men Type: BLOOD SPECIMENOrdering Facility: [facility] Address: [address] [place] [address] Performed By: #### 5 7021-8 ####[facility] LABCLIA [id number] [place] [address] Hematocrit (Bld) [Volume fraction] 35.0 % Low 39.0-51.0 [facility] Comment on above: Order Comment: Speci men Type: BLOOD SPECIMENOrdering Facility: [facility] Address: [address] [place] [address] Performed By: #### 5 7021-8 ####[facility] LABCLIA [id number] [place] [address] Hemoglobin (Bld) [Mass/Vol] 11.6 g/dL Low 13.0-17.0 [facility] Comment on above: Order Comment: Speci men Type: BLOOD SPECIMENOrdering Facility: [facility] Address: [address] [place] [address] Performed By: #### 5 7021-8 ####[facility] LABCLIA [id number] [place] [address] Immature granulocytes (Bld) [#/Vol] 0.03 10*3/uL Normal <0.10 [facility] Comment on above: Order Comment: Speci men Type: BLOOD SPECIMENOrdering Facility: [facility] Address: [address] [place] [address] Performed By: #### 5 7021-8 ####[facility] LABCLIA [id number] [place] [address] Immature granulocytes/100 WBC (Bld) 0.4 % Normal [facility] Comment on above: Order Comment: Speci men Type: BLOOD SPECIMENOrdering Facility: [facility] Address: [address] [place] [address] Performed By: #### 5 7021-8 ####[facility] LABIA [id number] [place] [address] Lymphocytes (Bld) [#/Vol] 0.65 10*3/uL Low 1.00-4.00 [facility] Comment on above: Order Comment: Speci men Type: BLOOD SPECIMENOrdering Facility: [facility] Address: [address] [address] Performed By: #### 5 7021-8 ####[facility] LABCLIA [id number] [place] [address] Lymphocytes/100 WBC (Bld) 7.9 % Normal [facility] Comment on above: Order Comment: Speci men Type: BLOOD SPECIMENOrdering Facility: [facility] Address: [address] [place] [address] Performed By: #### 5 7021-8 ####[facility] LABCLIA [id number] [place] [address] MCH (RBC) [Entitic mass] 33.5 pg Normal 26.0-34.0 [facility] Comment on above: Order Comment: Speci men Type: BLOOD SPECIMENOrdering Facility: [facility] Address: [address] [place] [address] Performed By: #### 5 7021-8 ####[facility] LABCLIA [id number] [place] [address] MCHC (RBC) [Mass/Vol] 33.1 g/dL Normal 30.5-36.0 [facility] Comment on above: Order Comment: Speci men Type: BLOOD SPECIMENOrdering Facility: [facility] Address: [address] [place] [address] Performed By: #### 5 7021-8 ####[facility] LABCLIA [id number] [place] [address] MCV (RBC) [Entitic vol] 101.2 fL High 80.0-100.0 [facility] Comment on above: Order Comment: Speci men Type: BLOOD SPECIMENOrdering Facility: [facility] Address: [address] [place] [address] Performed By: #### 5 7021-8 ####[facility] LABCLIA [id number] [place] [address] Monocytes (Bld) [#/Vol] 1.41 10*3/uL High <0.87 [facility] Comment on above: Order Comment: Speci men Type: BLOOD SPECIMENOrdering Facility: [facility] Address: [address] [address] Performed By: #### 5 7021-8 ####[facility] LABCLIA [id number] [place] [address] Monocytes/100 WBC (Bld) 17.2 % Normal [facility] Comment on above: Order Comment: Speci men Type: BLOOD SPECIMENOrdering Facility: [facility] Address: [address] [address] Performed By: #### 5 7021-8 ####[facility] LABCLIA [id number] [place] [address] Neutrophils (Bld) [#/Vol] 5.84 10*3/uL Normal 1.45-7.50 [facility] Comment on above: Order Comment: Speci men Type: BLOOD SPECIMENOrdering Facility: [facility] Address: [address] [address] Performed By: #### 5 7021-8 ####[facility] LABCLIA [id number] [place] [address] Neutrophils/100 WBC (Bld) 71.3 % Normal [facility] Comment on above: Order Comment: Speci men Type: BLOOD SPECIMENOrdering Facility: [facility] Address: [address] [address] Performed By: #### 5 7021-8 ####[facility] LABCLIA [id number] [place] [address] Nucleated RBC (Bld) [#/Vol] 10*3/uL Normal <0.01 [facility] Comment on above: Order Comment: Speci men Type: BLOOD SPECIMENOrdering Facility: [facility] Address: [address] [place] [address] Performed By: #### 5 7021-8 ####[facility] LABCLIA [id number] [place] [address] Nucleated RBC/100 WBC (Bld) [Ratio] 0.0 /100 WBC Normal [facility] Comment on above: Order Comment: Speci men Type: BLOOD SPECIMENOrdering Facility: [facility] Address: [address] [place] [address] Performed By: #### 5 7021-8 ####[facility] LABCLIA [id number] [place] [address] Platelet mean volume (Bld) [Entitic vol] 9.4 fL Normal 9.0-12.7 [facility] Comment on above: Order Comment: Speci men Type: BLOOD SPECIMENOrdering Facility: [facility] Address: [address] [place] [address] Performed By: #### 5 7021-8 ####[facility] LABIA [id number] [place] [address] Platelets (Bld) [#/Vol] 171 10*3/uL Normal 150-400 [facility] Comment on above: Order Comment: Speci men Type: BLOOD SPECIMENOrdering Facility: [facility] Address: [address] [place] [address] Performed By: #### 5 7021-8 ####[facility] LABIA [id number] [place] [address] RBC (Bld) [#/Vol] 3.46 10*6/uL Low 4.20-6.00 [facility] Comment on above: Order Comment: Speci men Type: BLOOD SPECIMENOrdering Facility: [facility] Address: [address] [place] [address] Performed By: #### 5 7021-8 ####[facility] LABIA [id number] [place] [address] WBC (Bld) [#/Vol] 8.19 10*3/uL Normal 3.70-11.00 [facility] Comment on above: Order Comment: Speci men Type: BLOOD SPECIMENOrdering Facility: [facility] Address: [place] [address] Performed By: #### 5 7021-8 ####[facility] LABCLIA [id number] [place] [address] Basophils (Bld) [#/Vol] 0.03 10*3/uL <0.11 k/uL [facility] Basophils/100 WBC (Bld) 0.4 % [facility] Differential cell count method Nom (Bld) Auto [facility] Eosinophils (Bld) [#/Vol] 0.23 10*3/uL <0.46 k/uL [facility] Eosinophils/100 WBC (Bld) 2.8 % [facility] Erythrocyte distribution width (RBC) [Ratio] 16.1 % High 11.5 - 15.0 % [facility] Hematocrit (Bld) [Volume fraction] 35.0 % Low 39.0 - 51.0 % [facility] Hemoglobin (Bld) [Mass/Vol] 11.6 g/dL Low 13.0 - 17.0 g/dL [facility] Immature granulocytes (Bld) [#/Vol] 0.03 10*3/uL <0.10 k/uL [facility] Immature granulocytes/100 WBC (Bld) 0.4 % [facility] Lymphocytes (Bld) [#/Vol] 0.65 10*3/uL Low 1.00 - 4.00 k/uL [facility] Lymphocytes/100 WBC (Bld) 7.9 % [facility] MCH (RBC) [Entitic mass] 33.5 pg 26.0 - 34.0 pg [facility] MCHC (RBC) [Mass/Vol] 33.1 g/dL 30.5 - 36.0 g/dL [facility] MCV (RBC) [Entitic vol] 101.2 fL High 80.0 - 100.0 fL [facility] Monocytes (Bld) [#/Vol] 1.41 10*3/uL High <0.87 k/uL [facility] Monocytes/100 WBC (Bld) 17.2 % [facility] Neutrophils (Bld) [#/Vol] 5.84 10*3/uL 1.45 - 7.50 k/uL [facility] Neutrophils/100 WBC (Bld) 71.3 % [facility] Nucleated RBC (Bld) [#/Vol] <0.01 k/uL [facility] Nucleated RBC/100 WBC (Bld) [Ratio] 0.0 /100 WBC [facility] Platelet mean volume (Bld) [Entitic vol] 9.4 fL 9.0 - 12.7 fL [facility] Platelets (Bld) [#/Vol] 171 10*3/uL 150 - 400 k/uL [facility] RBC (Bld) [#/Vol] 3.46 10*6/uL Low 4.20 - 6.0 0 m/uL [facility] WBC (Bld) [#/Vol] 8.19 10*3/uL 3.70 - 11.00 k/uL [facility] CEA SerPl-mCncon 03-19-2023 Carcinoembryonic Ag [Mass/Vol] 2.0 ng/mL Normal <=2.9 [facility] Comment on above: Order Comment: Speci men Type: BLOOD SPECIMENOrdering Facility: [facility] Address: [address] [place] [address] Result Comment: Carc inoembryonic antigen test is [...] used interchangeably. Performed By: #### 2 039-6 ####[facility] LABCLIA [id number] [place] [address] [place] CNOVSPon 03-19-2023 CNOVSP Normal [facility] Comprehensive metabolic 2000 panelon 03-19-2023 Albumin [Mass/Vol] 3.6 g/dL Low 3.9 - 4.9 g/dL [facility] ALP [Catalytic activity/Vol] 98 U/L 38 - 113 U/L [facility] ALT [Catalytic activity/Vol] 10 U/L 10 - 54 U/L [facility] Anion gap [Moles/Vol] 10 mmol/L 9 - 18 mmol/L [facility] AST [Catalytic activity/Vol] 18 U/L 14 - 40 U/L [facility] Bilirubin [Mass/Vol] 0.5 mg/dL 0.2 - 1 .3 mg/dL [facility] Calcium [Mass/Vol] 9.3 mg/dL 8.5 - 10. 2 mg/dL [facility] Chloride [Moles/Vol] 102 mmol/L 97 - 10 5 mmol/L [facility] CO2 [Moles/Vol] 26 mmol/L 22 - 30 mmol/L [facility] Creatinine [Mass/Vol] 1.18 mg/dL 0.73 - 1.22 mg/dL [facility] Estimated Glomerular Filtration Rate 66 mL/min/1.73m >=60 mL/min/1.73 m [facility] Glucose [Mass/Vol] 123 mg/dL High 74 - 99 mg/dL [facility] Potassium [Moles/Vol] 3.6 mmol/L Low 3.7 - 5.1 mmol/L [facility] Protein [Mass/Vol] 6.2 g/dL Low 6.3 - 8.0 g/dL [facility] Sodium [Moles/Vol] 138 mmol/L 136 - 144 mmol/L [facility] Urea nitrogen [Mass/Vol] 20 mg/dL 9 - 24 mg/dL [facility] Albumin [Mass/Vol] 3.6 g/dL Low 3.9-4.9 [facility] Comment on above: Order Comment: Speci men Type: BLOOD SPECIMENOrdering Facility: [facility] Address: [address] [place] [address] Performed By: #### 2 4323-8 ####[facility] LABIA [id number] [place] [address] ALP [Catalytic activity/Vol] 98 U/L Normal 38-113 [facility] Comment on above: Order Comment: Speci men Type: BLOOD SPECIMENOrdering Facility: [facility] Address: [address] [address] Performed By: #### 2 4323-8 ####[facility] LABCLIA [id number] [place] [address] ALT [Catalytic activity/Vol] 10 U/L Normal 10-54 [facility] Comment on above: Order Comment: Speci men Type: BLOOD SPECIMENOrdering Facility: [facility] Address: [address] [address] Performed By: #### 2 4323-8 ####[facility] LABCLIA [id number] [place] [address] Anion gap [Moles/Vol] 10 mmol/L Normal 9-18 [facility] Comment on above: Order Comment: Speci men Type: BLOOD SPECIMENOrdering Facility: [facility] Address: [address] [place] [address] Performed By: #### 2 4323-8 ####[facility] LABCLIA [id number] [place] [address] AST [Catalytic activity/Vol] 18 U/L Normal 14-40 [facility] Comment on above: Order Comment: Speci men Type: BLOOD SPECIMENOrdering Facility: [facility] Address: [address] [place] [address] Performed By: #### 2 4323-8 ####[facility] LABCLIA [id number] [place] [address] Bilirubin [Mass/Vol] 0.5 mg/dL Normal 0.2-1.[address] [facility] Comment on above: Order Comment: Speci men Type: BLOOD SPECIMENOrdering Facility: [facility] Address: [address] [address] Performed By: #### 2 4323-8 ####[facility] LABCLIA [id number] [place] [address] Calcium [Mass/Vol] 9.3 mg/dL Normal 8.5-10.2 [facility] Comment on above: Order Comment: Speci men Type: BLOOD SPECIMENOrdering Facility: [facility] Address: [address] [place] [address] Performed By: #### 2 4323-8 ####[facility] LABCLIA [id number] [place] [address] Chloride [Moles/Vol] 102 mmol/L Normal 97-[address] [facility] Comment on above: Order Comment: Speci men Type: BLOOD SPECIMENOrdering Facility: [facility] Address: [address] [place] [address] Performed By: #### 2 4323-8 ####[facility] LABCLIA [id number] [place] [address] CO2 [Moles/Vol] 26 mmol/L Normal 22-30 [facility] Comment on above: Order Comment: Speci men Type: BLOOD SPECIMENOrdering Facility: [facility] Address: [address] [place] [address] Performed By: #### 2 4323-8 ####[facility] LABCLIA [id number] [place] [address] Creatinine [Mass/Vol] 1.18 mg/dL Normal 0.73-1.22 [facility] Comment on above: Order Comment: Speci men Type: BLOOD SPECIMENOrdering Facility: [facility] Address: [address] [place] [address] Performed By: #### 2 4323-8 ####[facility] LABCLIA [id number] [place] [address] ESTIMATED GLOMERULAR FILTRATION RATE 66 mL/min/1.73m??? Normal >=60 [facility] Comment on above: Order Comment: Speci men Type: BLOOD SPECIMENOrdering Facility: [facility] Address: [address] [place] [address] Result Comment: Rebekah mated Glomerular Filtration Rate [...] actual GFR. Performed By: #### 2 4323-8 ####[facility] LABIA [id number] [place] [address] Glucose [Mass/Vol] 123 mg/dL High 74-99 [facility] Comment on above: Order Comment: Speci men Type: BLOOD SPECIMENOrdering Facility: [facility] Address: [address] [place] [address] Result Comment: The [place] Diabetes Association (ADA) provides guidance for cutoff [...] Standards of Medical Care in Diabetes 2016, [employer] Diabetes Association. Diabetes Care. 2016.39(Suppl 1). Performed By: #### 2 4323-8 ####[facility] LABIA [id number] [place] [address] Potassium [Moles/Vol] 3.6 mmol/L Low 3.7-5.1 [facility] Comment on above: Order Comment: Speci men Type: BLOOD SPECIMENOrdering Facility: [facility] Address: [address] [address] Performed By: #### 2 4323-8 ####[facility] LABIA [id number] [place] [address] Protein [Mass/Vol] 6.2 g/dL Low 6.3-8.0 [facility] Comment on above: Order Comment: Speci men Type: BLOOD SPECIMENOrdering Facility: [facility] Address: [address] [address] Performed By: #### 2 4323-8 ####[facility] LABCLIA [id number] [place] [address] Sodium [Moles/Vol] 138 mmol/L Normal 136-144 [facility] Comment on above: Order Comment: Speci men Type: BLOOD SPECIMENOrdering Facility: [facility] Address: [address] [place] [address] Performed By: #### 2 4323-8 ####[facility] LABCLIA [id number] [place] [address] Urea nitrogen [Mass/Vol] 20 mg/dL Normal 9-24 [facility] Comment on above: Order Comment: Speci men Type: BLOOD SPECIMENOrdering Facility: [facility] Address: [address] [place] [address] Performed By: #### 2 4323-8 ####[facility] LABCLIA [id number] [place] [address] Consent for Treatmenton 02-19 Consent for Treatment [id number]#1.00C D:127 Normal [facility] Discharge Instructionson Discharge Instructions [id number]#[id number] D:127 Normal [facility] ED Clinical Summaryon 2022 ED Clinical Summary (Inserted Image. Lary ble to display) [address] [address] ED Clinical Summary Person Information Name: MERVAT DAMON [place] Age: 72 Years : 1950 Sex: Male Language: Estonian PCP: Lorenzo OLSON DO Marital Status: Phone: [phone] Visit Id: Visit Reason: Cough; Neck pain; [...] 03/18/2023 13:40:25 03/18/2023 13:40:25 03/18/2023 13:40:25 ADDRESS: [address] [place] [phone] PHYS DOC NOTES: MEDICAL INFORMATION: Prescriptions Given: New Medications [id number], [address] [place] [id number], [phone] azithromycin (Zithromax 250 mg Tab) 1 Packets By Mouth As Directed for 5 Days. as directed on package labeling. Refills: 0. cyclobenzaprine (cyclobenzaprine 10 mg Tab) 1 Tablets By Mouth 3 times a day as needed for spasm. Refills: 0. Medications to Continue Taking That Have Changed [facility] #[id number], [address] [place], [place] [id number], [phone] START: acetaminophen-hydrocodo ne (Lafitte 325 mg-5 mg oral tablet) 1 Tablets [...] Follow up: With: Address: When: Lorenzo OLSON [facility] [address] [place] [address] Divitel (1) In 3 days 03/21/2023 Comments: Return to the emergency room if your shortness of breath gets worse, your neck pain gets worse or any new symptoms. Be aware that both Lafitte and Flexeril can cause drowsiness. DIAGNOSIS: 1:Pneumonia; 2:Neck muscle spasm Normal [facility] ED Note-Physicianon 03-18-20 ED Note-Physician Basic Information Time Seen: Corrina Rogers, Yuridia Walter 03/18/2023 11:43 Chief Complaint has [...] and Complexity of Problems Differential Diagnosis: [] [facility] Data External documents reviewed: [] My EKG [...] prescription for Zithromax for pneumonia. Will give Lafitte and Flexeril for his muscle spasm/strain. He [...] needed for pain, 10 tab(s), Refill(s) 0, [id number], 188, cm, 03/18/23 10:50:00 EDT, Height/Length Dosing, 111, kg, 03/18/23 10:50:00 EDT, Weight Dosing Orders: acetaminophen-oxycodone , 1 tab(s), Tab, Oral, Once, Stop date 03/18/23 11:55:00 EDT, STAT, Start date 03/18/23 11:55:00 EDT azithromycin, = 1 packet(s), Oral, As Directed, as directed on package labeling, X 5 day(s), # 6 tab(s), Refills(s) 0, [id number], 188, cm, 03/18/23 10:50:00 EDT, Height/Length Dosing, 111, kg, 03/18/23 10:50:00 EDT, Weight Dosing cyclobenzaprine, 10 mg = 1 tab(s), Oral, TID, PRN for spasm, # 20 tab(s), Refills(s) 0, [facility]: [facility] #[id number], 188, cm, 03/18/23 10:50:00 EDT, Height/Length Dosing, [...] 10 mg= 1 tab(s), Oral, TID, PRN Lafitte (more content not included)... [facility] Comment on above: Result Comment: Elec tronically Signed By: Yuridia Houser M.D..grace\Date and Time Signed: 03/18/23 13:36 EDT ED [...] these instructions at home: Medicines ? Take xmwa-dsv-hnqhtqm and prescription medicines only as told by [...] Keep all (more content not included)... [facility] ED Patient Summaryon 023 ED Patient Summary (Inserted Image. Lary ble to display) [address] [address] Patient Discharge Instructions Person Information Name: MERVAT DAMON Age: 72 Years Arrival Date: 03/18/2023 10:24:33 Discharge Diagnosis: 1:Pneumonia; 2:Neck muscle spasm Primary Care Physician: Lorenzo OLSON DO Provider Information Primary Provider: Yuridia Houser M.D. Advanced Log Chain Worker:None The exam and treatment you received in the Emergency Department were for an urgent problem and are not intended as complete care. It is important that you follow up with a doctor, nurse practitioner, or physician?s environmental emergencies assistant for ongoing care. If your symptoms become worse or you do not improve as expected and you are unable to reach your usual health care provider, you should return to the Emergency Department. We are available 24 hours a day. OSEIVASILEMERVAT Willingham has been given the following list of patient education materials, prescriptions and follow-up instructions: Follow-up Instructions: With: Address: When: Lorenzo OLSON [address] [place] [id number] Business (1) In 3 days 03/21/2023 Comments: Return to the emergency room if your shortness of breath gets worse, your neck pain gets worse or any new symptoms. Be aware that both Lafitte and Flexeril can cause drowsiness. In the event that this physician does not participate in your insurance network, please consult with your insurance company to find a nearby participating provider. Patient Education Materials: Muscle Cramps and Spasms; Community-Acquired Pneumonia, Adult A MESSAGE TO ALL PATIENTS REGARDING OPIOIDS PRESCRIPTION OPIOIDS: WHAT YOU NEED TO KNOW Prescription opioids can be used to help relieve zyebhybx-lp-uvpxiv pain and are often prescribed following a [...] to tyson (more content not included)... [facility] XR Chest 2 Viewson XR Chest 2 Views Exam Date/Time: 03/18/2023 [...] mGy = na DAP = na [facility] XR Spine Cervical 4 or 5 [...] REPORT Dictated: 03/18/2023 1:04 pm Vinicius Buchanan MD Signed (Electronic Signature): 03/18/2023 1:04 pm Signed by: Vinicius Buchanan MD Transcribed by: VEENA Technologist: DENTON Technical Comments Radiation Dose: Ka,r in mGy = na DAP = na [facility] CNOVon 03-13-2023 CNOV [facility] RE[facility]ERR[facility] LAB [facility] Comment on above: Order Comment: Speci men Type: BLOOD SPECIMENOrdering Facility: [facility] Address: [address] [place] [address] Performed By: #### M ISC1 ####[facility] LABCLIA [id number] [address] TEST 1 [facility] Cancer Panel Normal [facility] Comment on above: Order Comment: Speci men Type: BLOOD SPECIMENOrdering Facility: [facility] Address: [address] [place] [address] Performed By: #### M ISC1 ####[facility] LABCLIA [id number] [address] TEST RESULTS 1 View results in Scan jesse Documents link when available. Normal [facility] Comment on above: Order Comment: Speci men Type: BLOOD SPECIMENOrdering Facility: [facility] Address: [address] [address] Performed By: #### M ISC1 ####[facility] LABCLIA [id number] KENDRAShawna [place] [address] [place] CNPNon 03-07-2023 CNPN Normal [facility] Consultation Noteon 03-06-20 Consultation Note [id number]#1.00C D:127 Normal [facility] CBC W Auto Differential pane l (Bld)on 03-05-2023 Basophils (Bld) [#/Vol] 0.05 10*3/uL Normal <0.11 [facility] Comment on above: Order Comment: Speci men Type: BLOOD SPECIMENOrdering Facility: [facility] Address: [address] [address] Performed By: #### 5 7021-8 ####[facility] LABCLIA [id number] [place] [address] Basophils/100 WBC (Bld) 0.8 % Normal [facility] Comment on above: Order Comment: Speci men Type: BLOOD SPECIMENOrdering Facility: [facility] Address: [address] [address] Performed By: #### 5 7021-8 ####[facility] LABCLIA [id number] [place] [address] Differential cell count method Nom (Bld) Auto Normal [facility] Comment on above: Order Comment: Speci men Type: BLOOD SPECIMENOrdering Facility: [facility] Address: [address] [address] Performed By: #### 5 7021-8 ####[facility] LABCLIA [id number] [place] [address] Eosinophils (Bld) [#/Vol] 0.20 10*3/uL Normal <0.46 [facility] Comment on above: Order Comment: Speci men Type: BLOOD SPECIMENOrdering Facility: [facility] Address: [address] [address] Performed By: #### 5 7021-8 ####[facility] LABCLIA [id number] [place] [address] Eosinophils/100 WBC (Bld) 3.1 % Normal [facility] Comment on above: Order Comment: Speci men Type: BLOOD SPECIMENOrdering Facility: [facility] Address: [address] [place] [address] Performed By: #### 5 7021-8 ####[facility] LABCLIA [id number] [place] [address] Erythrocyte distribution width (RBC) [Ratio] 16.0 % High 11.5-15.0 [facility] Comment on above: Order Comment: Speci men Type: BLOOD SPECIMENOrdering Facility: [facility] Address: [address] [place] [address] Performed By: #### 5 7021-8 ####[facility] LABCLIA [id number] [place] [address] Hematocrit (Bld) [Volume fraction] 35.3 % Low 39.0-51.0 [facility] Comment on above: Order Comment: Speci men Type: BLOOD SPECIMENOrdering Facility: [facility] Address: [address] [place] [address] Performed By: #### 5 7021-8 ####[facility] LABCLIA [id number] [place] [address] Hemoglobin (Bld) [Mass/Vol] 11.7 g/dL Low 13.0-17.0 [facility] Comment on above: Order Comment: Speci men Type: BLOOD SPECIMENOrdering Facility: [facility] Address: [address] [place] [address] Performed By: #### 5 7021-8 ####[facility] LABCLIA [id number] [place] [address] Immature granulocytes (Bld) [#/Vol] 0.03 10*3/uL Normal <0.10 [facility] Comment on above: Order Comment: Speci men Type: BLOOD SPECIMENOrdering Facility: [facility] Address: [address] [place] [address] Performed By: #### 5 7021-8 ####[facility] LABCLIA [id number] [place] [address] Immature granulocytes/100 WBC (Bld) 0.5 % Normal [facility] Comment on above: Order Comment: Speci men Type: BLOOD SPECIMENOrdering Facility: [facility] Address: [address] [place] [address] Performed By: #### 5 7021-8 ####[facility] LABCLIA [id number] [place] [address] Lymphocytes (Bld) [#/Vol] 0.57 10*3/uL Low 1.00-4.00 [facility] Comment on above: Order Comment: Speci men Type: BLOOD SPECIMENOrdering Facility: [facility] Address: [address] [place] [address] Performed By: #### 5 7021-8 ####[facility] LABIA [id number] [place] [address] Lymphocytes/100 WBC (Bld) 8.9 % Normal [facility] Comment on above: Order Comment: Speci men Type: BLOOD SPECIMENOrdering Facility: [facility] Address: [address] [place] [address] Performed By: #### 5 7021-8 ####[facility] LABCLIA [id number] [place] [address] MCH (RBC) [Entitic mass] 34.0 pg Normal 26.0-34.0 [facility] Comment on above: Order Comment: Speci men Type: BLOOD SPECIMENOrdering Facility: [facility] Address: [address] [place] [address] Performed By: #### 5 7021-8 ####[facility] LABCLIA [id number] [place] [address] MCHC (RBC) [Mass/Vol] 33.1 g/dL Normal 30.5-36.0 [facility] Comment on above: Order Comment: Speci men Type: BLOOD SPECIMENOrdering Facility: [facility] Address: [address] [place] [address] Performed By: #### 5 7021-8 ####[facility] LABIA [id number] [place] [address] MCV (RBC) [Entitic vol] 102.6 fL High 80.0-100.0 [facility] Comment on above: Order Comment: Speci men Type: BLOOD SPECIMENOrdering Facility: [facility] Address: [address] [place] [address] Performed By: #### 5 7021-8 ####[facility] LABIA [id number] [place] [address] Monocytes (Bld) [#/Vol] 0.95 10*3/uL High <0.87 [facility] Comment on above: Order Comment: Speci men Type: BLOOD SPECIMENOrdering Facility: [facility] Address: [address] [place] [address] Performed By: #### 5 7021-8 ####[facility] LABIA [id number] [place] [address] Monocytes/100 WBC (Bld) 14.9 % Normal [facility] Comment on above: Order Comment: Speci men Type: BLOOD SPECIMENOrdering Facility: [facility] Address: [address] [place] [address] Performed By: #### 5 7021-8 ####[facility] LABIA [id number] [place] [address] Neutrophils (Bld) [#/Vol] 4.57 10*3/uL Normal 1.45-7.50 [facility] Comment on above: Order Comment: Speci men Type: BLOOD SPECIMENOrdering Facility: [facility] Address: [address] [address] Performed By: #### 5 7021-8 ####[facility] LABCLIA [id number] [place] [address] Neutrophils/100 WBC (Bld) 71.8 % Normal [facility] Comment on above: Order Comment: Speci men Type: BLOOD SPECIMENOrdering Facility: [facility] Address: [address] [place] [address] Performed By: #### 5 7021-8 ####[facility] LABCLIA [id number] [place] [address] Nucleated RBC (Bld) [#/Vol] 10*3/uL Normal <0.01 [facility] Comment on above: Order Comment: Speci men Type: BLOOD SPECIMENOrdering Facility: [facility] Address: [address] [place] [address] Performed By: #### 5 7021-8 ####[facility] LABCLIA [id number] [place] [address] Nucleated RBC/100 WBC (Bld) [Ratio] 0.0 /100 WBC Normal [facility] Comment on above: Order Comment: Speci men Type: BLOOD SPECIMENOrdering Facility: [facility] Address: [address] [place] [address] Performed By: #### 5 7021-8 ####[facility] LABCLIA [id number] [place] [address] Platelet mean volume (Bld) [Entitic vol] 9.9 fL Normal 9.0-12.7 [facility] Comment on above: Order Comment: Speci men Type: BLOOD SPECIMENOrdering Facility: [facility] Address: [address] [place] [address] Performed By: #### 5 7021-8 ####[facility] LABCLIA [id number] [place] [address] Platelets (Bld) [#/Vol] 137 10*3/uL Low 150-400 [facility] Comment on above: Order Comment: Speci men Type: BLOOD SPECIMENOrdering Facility: [facility] Address: [address] [place] [address] Performed By: #### 5 7021-8 ####[facility] LABCLIA [id number] [place] [address] RBC (Bld) [#/Vol] 3.44 10*6/uL Low 4.20-6.00 [facility] Comment on above: Order Comment: Speci men Type: BLOOD SPECIMENOrdering Facility: [facility] Address: [address] [place] [address] Performed By: #### 5 7021-8 ####[facility] LABCLIA [id number] [place] [address] WBC (Bld) [#/Vol] 6.37 10*3/uL Normal 3.70-11.00 [facility] Comment on above: Order Comment: Speci men Type: BLOOD SPECIMENOrdering Facility: [facility] Address: [address] [place] [address] Performed By: #### 5 7021-8 ####[facility] LABCLIA [id number] [place] [address] CEA SerPl-ncon 03-05-2023 Carcinoembryonic Ag [Mass/Vol] 2.1 ng/mL Normal <=2.9 [facility] Comment on above: Order Comment: Speci men Type: BLOOD SPECIMENOrdering Facility: [facility] Address: [address] [place] [address] Result Comment: Carc inoembryonic antigen test is used as an aid in monitoring response to treatment or recurrence in patients with established colorectal, breast, lung, prostatic, pancreatic, and ovarian carcinomas. Clinical correlation is required.The Carcinoembryonic antigen test was performed using the [employer] Un[employer] DXI paramagnetic particle chemiluminescent immunoassay method. Results obtained with different assay methods or kits cannot be used interchangeably. Performed By: #### 2 039-6 ####[facility] LABCLIA [id number] [facility] [place] [address] [place] CNOVSPon 03-05-2023 CNOVSP Normal [facility] metabolic 2000 panelon 03-05-2023 Albumin [Mass/Vol] 3.8 g/dL Low 3.9-4.9 [facility] Comment on above: Order Comment: Speci men Type: BLOOD SPECIMENOrdering Facility: [facility] Address: [address] [address] Performed By: #### 2 4323-8 ####[facility] LABIA [id number] [place] [address] ALP [Catalytic activity/Vol] 113 U/L Normal 38-113 [facility] Comment on above: Order Comment: Speci men Type: BLOOD SPECIMENOrdering Facility: [facility] Address: [address] [address] Performed By: #### 2 4323-8 ####[facility] LABCLIA [id number] [place] [address] ALT [Catalytic activity/Vol] 9 U/L Low 10-54 [facility] Comment on above: Order Comment: Speci men Type: BLOOD SPECIMENOrdering Facility: [facility] Address: [address] [address] Performed By: #### 2 4323-8 ####[facility] LABCLIA [id number] [place] [address] Anion gap [Moles/Vol] 9 mmol/L Normal 9-18 [facility] Comment on above: Order Comment: Speci men Type: BLOOD SPECIMENOrdering Facility: [facility] Address: [address] [address] Performed By: #### 2 4323-8 ####[facility] LABCLIA [id number] [place] [address] AST [Catalytic activity/Vol] 14 U/L Normal 14-40 [facility] Comment on above: Order Comment: Speci men Type: BLOOD SPECIMENOrdering Facility: [facility] Address: [address] [address] Performed By: #### 2 4323-8 ####[facility] LABCLIA [id number] [place] [address] Bilirubin [Mass/Vol] 0.4 mg/dL Normal 0.2-1.[address] [facility] Comment on above: Order Comment: Speci men Type: BLOOD SPECIMENOrdering Facility: [facility] Address: [address] [place] [address] Performed By: #### 2 4323-8 ####[facility] LABCLIA [id number] [place] [address] Calcium [Mass/Vol] 9.1 mg/dL Normal 8.5-10.2 [facility] Comment on above: Order Comment: Speci men Type: BLOOD SPECIMENOrdering Facility: [facility] Address: [address] [address] Performed By: #### 2 4323-8 ####[facility] LABCLIA [id number] [place] [address] Chloride [Moles/Vol] 106 mmol/L High 97-[address] [facility] Comment on above: Order Comment: Speci men Type: BLOOD SPECIMENOrdering Facility: [facility] Address: [address] [address] Performed By: #### 2 4323-8 ####[facility] LABCLIA [id number] [place] [address] CO2 [Moles/Vol] 27 mmol/L Normal 22-30 [facility] Comment on above: Order Comment: Speci men Type: BLOOD SPECIMENOrdering Facility: [facility] Address: [address] [address] Performed By: #### 2 4323-8 ####[facility] LABCLIA [id number] [place] [address] Creatinine [Mass/Vol] 1.16 mg/dL Normal 0.73-1.22 [facility] Comment on above: Order Comment: Nazario todd Type: BLOOD SPECIMENOrdering Facility: [facility] Address: [address] [place] [address] Performed By: #### 2 4323-8 ####[facility] LABCLIA [id number] [place] [address] ESTIMATED GLOMERULAR FILTRATION RATE 68 mL/min/1.73m??? Normal >=60 [facility] Comment on above: Order Comment: Nazario brooks Type: BLOOD SPECIMENOrdering Facility: [facility] Address: [address] [place] [address] Result Comment: Rebekah mated Glomerular Filtration Rate [...] actual GFR. Performed By: #### 2 4323-8 ####[facility] LABCLIA [id number] [place] [address] Glucose [Mass/Vol] 102 mg/dL High 74-99 [facility] Comment on above: Order Comment: Isaiamador brooks Type: BLOOD SPECIMENOrdering Facility: [facility] Address: [address] [place] [address] Result Comment: The [place] Diabetes Association (ADA) provides guidance for cutoff [...] Standards of Medical Care in Diabetes 2016, [place] [employer]. Diabetes Care. 2016.39(Suppl 1). Performed By: #### 2 4323-8 ####[facility] LABCLIA [id number] [place] [address] Potassium [Moles/Vol] 3.4 mmol/L Low 3.7-5.1 [facility] Comment on above: Order Comment: Speci men Type: BLOOD SPECIMENOrdering Facility: [facility] Address: [address] [address] Performed By: #### 2 4323-8 ####[facility] LABCLIA [id number] [place] [address] Protein [Mass/Vol] 6.3 g/dL Normal 6.3-8.0 [facility] Comment on above: Order Comment: Speci men Type: BLOOD SPECIMENOrdering Facility: [facility] Address: [address] [address] Performed By: #### 2 4323-8 ####[facility] LABCLIA [id number] [place] [address] Sodium [Moles/Vol] 142 mmol/L Normal 136-144 [facility] Comment on above: Order Comment: Speci men Type: BLOOD SPECIMENOrdering Facility: [facility] Address: [address] [address] Performed By: #### 2 4323-8 ####[facility] LABCLIA [id number] [place] [address] Urea nitrogen [Mass/Vol] 19 mg/dL Normal 9-24 [facility] Comment on above: Order Comment: Speci men Type: BLOOD SPECIMENOrdering Facility: [facility] Address: [address] [address] Performed By: #### 2 4323-8 ####[facility] LABCLIA [id number] [place] [address] CNPNon 03-01-2023 CNPN Normal [facility] CNPNon 02-26-2023 CNPN Normal [facility] Consultation Noteon 02-21-20 Consultation Note [id number]#1.00C D:127 Normal [facility] CBC W Auto Differential pane l (Bld)on 02-19-2023 Basophils (Bld) [#/Vol] 0.03 10*3/uL Normal <0.11 [facility] Comment on above: Order Comment: Speci men Type: BLOOD SPECIMENOrdering Facility: [facility] Address: [address] [place] [address] Performed By: #### 5 7021-8 ####[facility] LABCLIA [id number] [place] [address] Basophils/100 WBC (Bld) 0.5 % Normal [facility] Comment on above: Order Comment: Speci men Type: BLOOD SPECIMENOrdering Facility: [facility] Address: [address] [place] [address] Performed By: #### 5 7021-8 ####[facility] LABCLIA [id number] [place] [address] Differential cell count method Nom (Bld) Auto Normal [facility] Comment on above: Order Comment: Speci men Type: BLOOD SPECIMENOrdering Facility: [facility] Address: [address] [address] Performed By: #### 5 7021-8 ####[facility] LABIA [id number] [place] [address] Eosinophils (Bld) [#/Vol] 0.13 10*3/uL Normal <0.46 [facility] Comment on above: Order Comment: Speci men Type: BLOOD SPECIMENOrdering Facility: [facility] Address: [address] [address] Performed By: #### 5 7021-8 ####[facility] LABCLIA [id number] [place] [address] Eosinophils/100 WBC (Bld) 2.1 % Normal [facility] Comment on above: Order Comment: Speci men Type: BLOOD SPECIMENOrdering Facility: [facility] Address: [address] [place] [address] Performed By: #### 5 7021-8 ####[facility] LABCLIA [id number] [place] [address] Erythrocyte distribution width (RBC) [Ratio] 15.8 % High 11.5-15.0 [facility] Comment on above: Order Comment: Speci men Type: BLOOD SPECIMENOrdering Facility: [facility] Address: [address] [place] [address] Performed By: #### 5 7021-8 ####[facility] LABIA [id number] [place] [address] Hematocrit (Bld) [Volume fraction] 35.5 % Low 39.0-51.0 [facility] Comment on above: Order Comment: Speci men Type: BLOOD SPECIMENOrdering Facility: [facility] Address: [address] [place] [address] Performed By: #### 5 7021-8 ####[facility] LABCLIA [id number] [place] [address] Hemoglobin (Bld) [Mass/Vol] 11.8 g/dL Low 13.0-17.0 [facility] Comment on above: Order Comment: Speci men Type: BLOOD SPECIMENOrdering Facility: [facility] Address: [address] [place] [address] Performed By: #### 5 7021-8 ####[facility] LABCLIA [id number] [place] [address] Immature granulocytes (Bld) [#/Vol] 0.03 10*3/uL Normal <0.10 [facility] Comment on above: Order Comment: Speci men Type: BLOOD SPECIMENOrdering Facility: [facility] Address: [address] [place] [address] Performed By: #### 5 7021-8 ####[facility] LABCLIA [id number] [place] [address] Immature granulocytes/100 WBC (Bld) 0.5 % Normal [facility] Comment on above: Order Comment: Speci men Type: BLOOD SPECIMENOrdering Facility: [facility] Address: [address] [place] [address] Performed By: #### 5 7021-8 ####[facility] LABIA [id number] [place] [address] Lymphocytes (Bld) [#/Vol] 0.67 10*3/uL Low 1.00-4.00 [facility] Comment on above: Order Comment: Speci men Type: BLOOD SPECIMENOrdering Facility: [facility] Address: [address] [place] [address] Performed By: #### 5 7021-8 ####[facility] LABIA [id number] [place] [address] Lymphocytes/100 WBC (Bld) 10.8 % Normal [facility] Comment on above: Order Comment: Speci men Type: BLOOD SPECIMENOrdering Facility: [facility] Address: [address] [place] [address] Performed By: #### 5 7021-8 ####[facility] LABIA [id number] [place] [address] MCH (RBC) [Entitic mass] 34.0 pg Normal 26.0-34.0 [facility] Comment on above: Order Comment: Speci men Type: BLOOD SPECIMENOrdering Facility: [facility] Address: [address] [place] [address] Performed By: #### 5 7021-8 ####[facility] LABCLIA [id number] [place] [address] MCHC (RBC) [Mass/Vol] 33.2 g/dL Normal 30.5-36.0 [facility] Comment on above: Order Comment: Speci men Type: BLOOD SPECIMENOrdering Facility: [facility] Address: [address] [place] [address] Performed By: #### 5 7021-8 ####[facility] LABCLIA [id number] [place] [address] MCV (RBC) [Entitic vol] 102.3 fL High 80.0-100.0 [facility] Comment on above: Order Comment: Speci men Type: BLOOD SPECIMENOrdering Facility: [facility] Address: [address] [place] [address] Performed By: #### 5 7021-8 ####[facility] LABIA [id number] [place] [address] Monocytes (Bld) [#/Vol] 0.95 10*3/uL High <0.87 [facility] Comment on above: Order Comment: Speci men Type: BLOOD SPECIMENOrdering Facility: [facility] Address: [address] [place] [address] Performed By: #### 5 7021-8 ####[facility] LABCLIA [id number] [place] [address] Monocytes/100 WBC (Bld) 15.3 % Normal [facility] Comment on above: Order Comment: Speci men Type: BLOOD SPECIMENOrdering Facility: [facility] Address: [address] [place] [address] Performed By: #### 5 7021-8 ####[facility] LABIA [id number] [place] [address] Neutrophils (Bld) [#/Vol] 4.40 10*3/uL Normal 1.45-7.50 [facility] Comment on above: Order Comment: Speci men Type: BLOOD SPECIMENOrdering Facility: [facility] Address: [address] [place] [address] Performed By: #### 5 7021-8 ####[facility] LABCLIA [id number] [place] [address] Neutrophils/100 WBC (Bld) 70.8 % Normal [facility] Comment on above: Order Comment: Speci men Type: BLOOD SPECIMENOrdering Facility: [facility] Address: [address] [place] [address] Performed By: #### 5 7021-8 ####[facility] LABCLIA [id number] [place] [address] Nucleated RBC (Bld) [#/Vol] 10*3/uL Normal <0.01 [facility] Comment on above: Order Comment: Speci men Type: BLOOD SPECIMENOrdering Facility: [facility] Address: [address] [place] [address] Performed By: #### 5 7021-8 ####[facility] LABCLIA [id number] [place] [address] Nucleated RBC/100 WBC (Bld) [Ratio] 0.0 /100 WBC Normal [facility] Comment on above: Order Comment: Speci men Type: BLOOD SPECIMENOrdering Facility: [facility] Address: [address] [place] [address] Performed By: #### 5 7021-8 ####[facility] LABCLIA [id number] [place] [address] Platelet mean volume (Bld) [Entitic vol] 9.6 fL Normal 9.0-12.7 [facility] Comment on above: Order Comment: Speci men Type: BLOOD SPECIMENOrdering Facility: [facility] Address: [address] [place] [address] Performed By: #### 5 7021-8 ####[facility] LABCLIA [id number] [place] [address] Platelets (Bld) [#/Vol] 186 10*3/uL Normal 150-400 [facility] Comment on above: Order Comment: Speci men Type: BLOOD SPECIMENOrdering Facility: [facility] Address: [address] [place] [address] Performed By: #### 5 7021-8 ####[facility] LABIA [id number] [place] [address] RBC (Bld) [#/Vol] 3.47 10*6/uL Low 4.20-6.00 [facility] Comment on above: Order Comment: Speci men Type: BLOOD SPECIMENOrdering Facility: [facility] Address: [address] [place] [address] Performed By: #### 5 7021-8 ####[facility] LABIA [id number] [place] [address] WBC (Bld) [#/Vol] 6.21 10*3/uL Normal 3.70-11.00 [facility] Comment on above: Order Comment: Speci men Type: BLOOD SPECIMENOrdering Facility: [facility] Address: [address] [place] [address] Performed By: #### 5 7021-8 ####[facility] LABIA [id number] [place] [address] Basophils (Bld) [#/Vol] 0.03 10*3/uL <0.11 k/uL [facility] Basophils/100 WBC (Bld) 0.5 % [facility] Differential cell count method Nom (Bld) Auto [facility] Eosinophils (Bld) [#/Vol] 0.13 10*3/uL <0.46 k/uL [facility] Eosinophils/100 WBC (Bld) 2.1 % [facility] Erythrocyte distribution width (RBC) [Ratio] 15.8 % High 11.5 - 15.0 % [facility] Hematocrit (Bld) [Volume fraction] 35.5 % Low 39.0 - 51.0 % [facility] Hemoglobin (Bld) [Mass/Vol] 11.8 g/dL Low 13.0 - 17.0 g/dL [facility] Immature granulocytes (Bld) [#/Vol] 0.03 10*3/uL <0.10 k/uL [facility] Immature granulocytes/100 WBC (Bld) 0.5 % [facility] Lymphocytes (Bld) [#/Vol] 0.67 10*3/uL Low 1.00 - 4.00 k/uL [facility] Lymphocytes/100 WBC (Bld) 10.8 % [facility] MCH (RBC) [Entitic mass] 34.0 pg 26.0 - 34.0 pg [facility] MCHC (RBC) [Mass/Vol] 33.2 g/dL 30.5 - 36.0 g/dL [facility] MCV (RBC) [Entitic vol] 102.3 fL High 80.0 - 100.0 fL [facility] Monocytes (Bld) [#/Vol] 0.95 10*3/uL High <0.87 k/uL [facility] Monocytes/100 WBC (Bld) 15.3 % [facility] Neutrophils (Bld) [#/Vol] 4.40 10*3/uL 1.45 - 7.50 k/uL [facility] Neutrophils/100 WBC (Bld) 70.8 % [facility] Nucleated RBC (Bld) [#/Vol] <0.01 k/uL [facility] Nucleated RBC/100 WBC (Bld) [Ratio] 0.0 /100 WBC [facility] Platelet mean volume (Bld) [Entitic vol] 9.6 fL 9.0 - 12.7 fL [facility] Platelets (Bld) [#/Vol] 186 10*3/uL 150 - 400 k/uL [facility] RBC (Bld) [#/Vol] 3.47 10*6/uL Low 4.20 - 6.0 0 m/uL [facility] WBC (Bld) [#/Vol] 6.21 10*3/uL 3.70 - 11.00 k/uL [facility] CNOVSPon 02-19-2023 CNOVSP Normal [facility] metabolic 2000 panelon 02-19-2023 Albumin [Mass/Vol] 3.6 g/dL Low 3.9-4.9 [facility] Comment on above: Order Comment: Speci men Type: BLOOD SPECIMENOrdering Facility: [facility] Address: [address] [place] [address] Performed By: #### 2 4323-8 ####[facility] LABCLIA [id number] [place] [address] ALP [Catalytic activity/Vol] 118 U/L High 38-113 [facility] Comment on above: Order Comment: Speci men Type: BLOOD SPECIMENOrdering Facility: [facility] Address: [address] [address] Performed By: #### 2 4323-8 ####[facility] LABCLIA [id number] [place] [address] ALT [Catalytic activity/Vol] 10 U/L Normal 10-54 [facility] Comment on above: Order Comment: Speci men Type: BLOOD SPECIMENOrdering Facility: [facility] Address: [address] [place] [address] Performed By: #### 2 4323-8 ####[facility] LABCLIA [id number] [place] [address] Anion gap [Moles/Vol] 7 mmol/L Low 9-18 [facility] Comment on above: Order Comment: Speci men Type: BLOOD SPECIMENOrdering Facility: [facility] Address: [address] [address] Performed By: #### 2 4323-8 ####[facility] LABCLIA [id number] [place] [address] AST [Catalytic activity/Vol] 14 U/L Normal 14-40 [facility] Comment on above: Order Comment: Speci men Type: BLOOD SPECIMENOrdering Facility: [facility] Address: [address] [place] [address] Performed By: #### 2 4323-8 ####[facility] LABCLIA [id number] [place] [address] Bilirubin [Mass/Vol] 0.4 mg/dL Normal 0.2-1.[address] [facility] Comment on above: Order Comment: Speci men Type: BLOOD SPECIMENOrdering Facility: [facility] Address: [address] [place] [address] Performed By: #### 2 4323-8 ####[facility] LABCLIA [id number] [place] [address] Calcium [Mass/Vol] 9.2 mg/dL Normal 8.5-10.2 [facility] Comment on above: Order Comment: Speci men Type: BLOOD SPECIMENOrdering Facility: [facility] Address: [address] [place] [address] Performed By: #### 2 4323-8 ####[facility] LABCLIA [id number] [place] [address] Chloride [Moles/Vol] 105 mmol/L Normal 97-[address] [facility] Comment on above: Order Comment: Speci men Type: BLOOD SPECIMENOrdering Facility: [facility] Address: [address] [place] [address] Performed By: #### 2 4323-8 ####[facility] LABCLIA [id number] [place] [address] CO2 [Moles/Vol] 28 mmol/L Normal 22-30 [facility] Comment on above: Order Comment: Speci men Type: BLOOD SPECIMENOrdering Facility: [facility] Address: [address] [place] [address] Performed By: #### 2 4323-8 ####[facility] LABCLIA [id number] [place] [address] Creatinine [Mass/Vol] 1.11 mg/dL Normal 0.73-1.22 [facility] Comment on above: Order Comment: Speci men Type: BLOOD SPECIMENOrdering Facility: [facility] Address: [address] [place] [address] Performed By: #### 2 4323-8 ####[facility] LABCLIA [id number] [place] [address] ESTIMATED GLOMERULAR FILTRATION RATE 71 mL/min/1.73m??? Normal >=60 [facility] Comment on above: Order Comment: Speci men Type: BLOOD SPECIMENOrdering Facility: [facility] Address: [address] [address] Result Comment: Rebekah mated Glomerular Filtration Rate [...] actual GFR. Performed By: #### 2 4323-8 ####[facility] LABCLIA [id number] [place] [address] Glucose [Mass/Vol] 89 mg/dL Normal 74-99 [facility] Comment on above: Order Comment: Speci men Type: BLOOD SPECIMENOrdering Facility: [facility] Address: [address] [place] [address] Result Comment: The [employer] Diabetes Association (ADA) provides guidance for cutoff [...] Standards of Medical Care in Diabetes 2016, [employer]. Diabetes Care. 2016.39(Suppl 1). Performed By: #### 2 4323-8 ####[facility] LABCLIA [id number] [place] [address] Potassium [Moles/Vol] 3.9 mmol/L Normal 3.7-5.1 [facility] Comment on above: Order Comment: Speci men Type: BLOOD SPECIMENOrdering Facility: [facility] Address: [address] [place] [address] Performed By: #### 2 4323-8 ####[facility] LABCLIA [id number] [place] [address] Protein [Mass/Vol] 6.0 g/dL Low 6.3-8.0 [facility] Comment on above: Order Comment: Speci men Type: BLOOD SPECIMENOrdering Facility: [facility] Address: [address] [place] [address] Performed By: #### 2 4323-8 ####[facility] LABCLIA [id number] [place] [address] Sodium [Moles/Vol] 140 mmol/L Normal 136-144 [facility] Comment on above: Order Comment: Speci men Type: BLOOD SPECIMENOrdering Facility: [facility] Address: [address] [place] [address] Performed By: #### 2 4323-8 ####[facility] LABCLIA [id number] [place] [address] Urea nitrogen [Mass/Vol] 14 mg/dL Normal 9-24 [facility] Comment on above: Order Comment: Speci men Type: BLOOD SPECIMENOrdering Facility: [facility] Address: [address] [place] [address] Performed By: #### 2 4323-8 ####[facility] LABCLIA [id number] [place] [address] Albumin [Mass/Vol] 3.6 g/dL Low 3.9 - 4.9 g/dL [facility] ALP [Catalytic activity/Vol] 118 U/L High 38 - 113 U/L [facility] ALT [Catalytic activity/Vol] 10 U/L 10 - 54 U/L [facility] Anion gap [Moles/Vol] 7 mmol/L Low 9 - 18 mmol/L [facility] AST [Catalytic activity/Vol] 14 U/L 14 - 40 U/L [facility] Bilirubin [Mass/Vol] 0.4 mg/dL 0.2 - 1 .3 mg/dL [facility] Calcium [Mass/Vol] 9.2 mg/dL 8.5 - 10. 2 mg/dL [facility] Chloride [Moles/Vol] 105 mmol/L 97 - 10 5 mmol/L [facility] CO2 [Moles/Vol] 28 mmol/L 22 - 30 mmol/L [facility] Creatinine [Mass/Vol] 1.11 mg/dL 0.73 - 1.22 mg/dL [facility] Estimated Glomerular Filtration Rate 71 mL/min/1.73m >=60 mL/min/1.73 m [facility] Glucose [Mass/Vol] 89 mg/dL 74 - 99 mg/dL [facility] Potassium [Moles/Vol] 3.9 mmol/L 3.7 - 5.1 mmol/L [facility] Protein [Mass/Vol] 6.0 g/dL Low 6.3 - 8.0 g/dL [facility] Sodium [Moles/Vol] 140 mmol/L 136 - 144 mmol/L [facility] Urea nitrogen [Mass/Vol] 14 mg/dL 9 - 24 mg/dL [facility] CNOVon 02-07-2023 CNOV Normal [facility] CNPNon 02-07-2023 CNPN Normal [facility] Consultation Noteon 02-07-20 Consultation Note [id number]#[id number] D:127 Normal [facility] CBC W Auto Differential pane l (Bld)on 02-05-2023 Basophils (Bld) [#/Vol] 0.04 10*3/uL Normal <0.11 [facility] Comment on above: Order Comment: Speci men Type: BLOOD SPECIMENOrdering Facility: [facility] Address: [address] [place] [address] Performed By: #### 5 7021-8 ####[facility] LABCLIA [id number] [place] [address] Basophils/100 WBC (Bld) 0.8 % Normal [facility] Comment on above: Order Comment: Speci men Type: BLOOD SPECIMENOrdering Facility: [facility] Address: [address] [address] Performed By: #### 5 7021-8 ####[facility] LABCLIA [id number] [place] [address] Differential cell count method Nom (Bld) Auto Normal [facility] Comment on above: Order Comment: Speci men Type: BLOOD SPECIMENOrdering Facility: [facility] Address: [address] [place] [address] Performed By: #### 5 7021-8 ####[facility] LABCLIA [id number] [place] [address] Eosinophils (Bld) [#/Vol] 0.19 10*3/uL Normal <0.46 [facility] Comment on above: Order Comment: Speci men Type: BLOOD SPECIMENOrdering Facility: [facility] Address: [address] [place] [address] Performed By: #### 5 7021-8 ####[facility] LABCLIA [id number] [place] [address] Eosinophils/100 WBC (Bld) 3.8 % Normal [facility] Comment on above: Order Comment: Speci men Type: BLOOD SPECIMENOrdering Facility: [facility] Address: [address] [place] [address] Performed By: #### 5 7021-8 ####[facility] LABCLIA [id number] [place] [address] Erythrocyte distribution width (RBC) [Ratio] 15.9 % High 11.5-15.0 [facility] Comment on above: Order Comment: Speci men Type: BLOOD SPECIMENOrdering Facility: [facility] Address: [address] [place] [address] Performed By: #### 5 7021-8 ####[facility] LABCLIA [id number] [place] [address] Hematocrit (Bld) [Volume fraction] 35.5 % Low 39.0-51.0 [facility] Comment on above: Order Comment: Speci men Type: BLOOD SPECIMENOrdering Facility: [facility] Address: [address] [place] [address] Performed By: #### 5 7021-8 ####[facility] LABCLIA [id number] [place] [address] Hemoglobin (Bld) [Mass/Vol] 11.8 g/dL Low 13.0-17.0 [facility] Comment on above: Order Comment: Speci men Type: BLOOD SPECIMENOrdering Facility: [facility] Address: [address] [place] [address] Performed By: #### 5 7021-8 ####[facility] LABCLIA [id number] [place] [address] Immature granulocytes (Bld) [#/Vol] 10*3/uL Normal <0.10 [facility] Comment on above: Order Comment: Speci men Type: BLOOD SPECIMENOrdering Facility: [facility] Address: [address] [place] [address] Performed By: #### 5 7021-8 ####[facility] LABCLIA [id number] [place] [address] Immature granulocytes/100 WBC (Bld) 0.2 % Normal [facility] Comment on above: Order Comment: Speci men Type: BLOOD SPECIMENOrdering Facility: [facility] Address: [address] [place] [address] Performed By: #### 5 7021-8 ####[facility] LABIA [id number] [place] [address] Lymphocytes (Bld) [#/Vol] 0.49 10*3/uL Low 1.00-4.00 [facility] Comment on above: Order Comment: Speci men Type: BLOOD SPECIMENOrdering Facility: [facility] Address: [address] [place] [address] Performed By: #### 5 7021-8 ####[facility] LABCLIA [id number] [place] [address] Lymphocytes/100 WBC (Bld) 9.7 % Normal [facility] Comment on above: Order Comment: Speci men Type: BLOOD SPECIMENOrdering Facility: [facility] Address: [address] [place] [address] Performed By: #### 5 7021-8 ####[facility] LABCLIA [id number] [place] [address] MCH (RBC) [Entitic mass] 34.4 pg High 26.0-34.0 [facility] Comment on above: Order Comment: Speci men Type: BLOOD SPECIMENOrdering Facility: [facility] Address: [address] [place] [address] Performed By: #### 5 7021-8 ####[facility] LABCLIA [id number] [place] [address] MCHC (RBC) [Mass/Vol] 33.2 g/dL Normal 30.5-36.0 [facility] Comment on above: Order Comment: Speci men Type: BLOOD SPECIMENOrdering Facility: [facility] Address: [address] [place] [address] Performed By: #### 5 7021-8 ####[facility] LABCLIA [id number] [place] [address] MCV (RBC) [Entitic vol] 103.5 fL High 80.0-100.0 [facility] Comment on above: Order Comment: Speci men Type: BLOOD SPECIMENOrdering Facility: [facility] Address: [address] [place] [address] Performed By: #### 5 7021-8 ####[facility] LABCLIA [id number] [place] [address] Monocytes (Bld) [#/Vol] 0.62 10*3/uL Normal <0.87 [facility] Comment on above: Order Comment: Speci men Type: BLOOD SPECIMENOrdering Facility: [facility] Address: [address] [place] [address] Performed By: #### 5 7021-8 ####[facility] LABCLIA [id number] [place] [address] Monocytes/100 WBC (Bld) 12.3 % Normal [facility] Comment on above: Order Comment: Speci men Type: BLOOD SPECIMENOrdering Facility: [facility] Address: [address] [place] [address] Performed By: #### 5 7021-8 ####[facility] LABCLIA [id number] [place] [address] Neutrophils (Bld) [#/Vol] 3.70 10*3/uL Normal 1.45-7.50 [facility] Comment on above: Order Comment: Speci men Type: BLOOD SPECIMENOrdering Facility: [facility] Address: [address] [place] [address] Performed By: #### 5 7021-8 ####[facility] LABCLIA [id number] [place] [address] Neutrophils/100 WBC (Bld) 73.2 % Normal [facility] Comment on above: Order Comment: Speci men Type: BLOOD SPECIMENOrdering Facility: [facility] Address: [address] [place] [address] Performed By: #### 5 7021-8 ####[facility] LABIA [id number] [place] [address] Nucleated RBC (Bld) [#/Vol] 10*3/uL Normal <0.01 [facility] Comment on above: Order Comment: Speci men Type: BLOOD SPECIMENOrdering Facility: [facility] Address: [address] [address] Performed By: #### 5 7021-8 ####[facility] LABCLIA [id number] [place] [address] Nucleated RBC/100 WBC (Bld) [Ratio] 0.0 /100 WBC Normal [facility] Comment on above: Order Comment: Speci men Type: BLOOD SPECIMENOrdering Facility: [facility] Address: [address] [address] Performed By: #### 5 7021-8 ####[facility] LABCLIA [id number] [place] [address] Platelet mean volume (Bld) [Entitic vol] 9.4 fL Normal 9.0-12.7 [facility] Comment on above: Order Comment: Speci men Type: BLOOD SPECIMENOrdering Facility: [facility] Address: [address] [address] Performed By: #### 5 7021-8 ####[facility] LABCLIA [id number] [place] [address] Platelets (Bld) [#/Vol] 162 10*3/uL Normal 150-400 [facility] Comment on above: Order Comment: Speci men Type: BLOOD SPECIMENOrdering Facility: [facility] Address: [address] [address] Performed By: #### 5 7021-8 ####[facility] LABCLIA [id number] [place] [address] RBC (Bld) [#/Vol] 3.43 10*6/uL Low 4.20-6.00 [facility] Comment on above: Order Comment: Speci men Type: BLOOD SPECIMENOrdering Facility: [facility] Address: [address] [address] Performed By: #### 5 7021-8 ####[facility] LABCLIA [id number] [place] [address] WBC (Bld) [#/Vol] 5.05 10*3/uL Normal 3.70-11.00 [facility] Comment on above: Order Comment: Speci men Type: BLOOD SPECIMENOrdering Facility: [facility] Address: [place] [address] Performed By: #### 5 7021-8 ####[facility] LABCLIA [id number] [place] [address] CNOVSPon 02-05-2023 CNOVSP Normal [facility] Coding Summary.on 02-05-2023 Coding Summary. CD:[id number] Ww+ PGhlYWQ+VR4UITDkB86whOU arS2eJ1WFIPxUDegdNKXNNT eUSpEejkFhGS8wtEEeUDPn IC8+RH6uCFDzVoumtFRne5Z 2cKV8H40wph5aQAgyrID0KJ EvXrOdptezj2tedDn1NDskD mluOyBt BMWnvY95NZQ3rQ03Hm45fRA lcJNlc0osxZc2NsYySMWsLD P4yRcgIUfjv1UjRKLcG98os OZkc0Y0 QZNriHvipXSyQeVefGP9aP0 iOWazxodoc1vidzicHwu2ul 33aRYrc7Q6sLF7O6KeaoU7C GJvbGQg GgtfaGGOjG8sujjtz5stafu gViMuKIBhPJe1JZl7LAFqlE zbMzUpZI78WZH9LZYrzxDiS 2FsLWFs fFgwZyG0d1N0Vd3YV4EJZqz mG3WQHUGRKNdeiSG+PC90cj 81W6CxNjpwBcc5XYQvTEB5u RD8oJ6g VSLzDYyjq2X3eGZ2X7GepmR clq7jb4xtVGZaHZmpY19snR Hcw3K6SMUghDX4RWYylSzzZ iBzaG93 Oyc+BWXulWcht2BkNpzck5o xk2wrxDg0EewxNLIwujIzmP xuQGI4u7DjTr3lDIFubDX5m MW3dT4r VoJsPaS2AUdcB983ZyLrbDS rRugxC38nE2RrpHZ+PHRyPj z9SKGbvPmrGH4tO1BqEVIwh mctbGVm mHqmPE7nNZHhndqkSNTlqT8 tQQIlE5b9JdMkOxR9RNlnM5 TaKLBxrmlrZd29sF0uLfRgF qN9JNzi P5VzgnS5XLXzhGIrYFltSPL 4R37dc6J2OCTzPPDwSJR3fW A5tL7rnCdqhvvvxCShvUdbu mVydGlj CPvxGQcmQ489LVUcqQnxIlV vZGluZyBEYXRlOiAgMDQvMT gvMjAyMzwvdGQ+WWSkKBR3t WxlPSAn bBFoQPapOl4ujWhqjEwxLM1 bVMZsfvksVCTbyP2rBAXkzG LdeHvlLN2mHYMwuagik040X iAxMHB0 BKYatXMqJ5RxvN1pWwRyHEO qYIIqQ3EybFYnHScuP200JJ ojMyQ9GHHnmvXrF0YdQFZfj WduOiB0 e0B9Kb5Wf1OuojueN7EcrAD tIzMmNigtLVg5O5YuAazlgN I+CS32OMVnSS09UZk4FXM0o WxlPSdi MMMsI2SxkH6cRcXrAEShPYQ kOyc+PHRhYmxlIHdpZHRoPS zdEWWdGiZwgOayDG9wJg6dK GVyLWNv dSvrxOJnYwVac0gcBRCvURz uKB5xuOizW3RrpSD0WHCti6 j1Py46W16iG3BebRC+PGNvb VC5aVX0 kP8kPhAgBrV0LNjmI276OdZ rbOOxCpnpe8cbm3wovXl1Jk R8FCBkwkGgcWreODU4f0IkV n11Y68e IHdpZHRoPSIxNSUiIHZhbGl ppe9hyL5qSb3+XNKosVV3wF W4nJ6hAxOiOdY1FXpsU900J nRvcCIv Lzuzw9uhp4yhvLx1EbTtDNQ hpdHiaCuxLKW2d3CqQb52W0 UtfEehm3DgXgs5ek93sNMvi 2E6nWX5 A7FlAECtmuhilKQdeWvoOW2 bAQTgehrnTRBatN8bHSFpC3 h1CmOxBjK7ZNdpB1YyvwI5E GJvbGQg SYHacAJVaY5pvuvgk7luenk qBzLhHPPvMZq9ZCe1UJVemW wuCxMsAXA1ZkR0HNQ6pKSdp N1dkNeg zdtyfR5cRbs+UFK3aNXuuIH CSR1lXyypvIF+MIPbNCW7eW ryHMixQFFyhQ7jCSUfF9f9U iAwLjA1 MYmoI0EzsaD7QORcrHHsTKW tmTXDwX9oriwqb4zpyegdYw QmMKZyIQn3XYh1ESHdrScyB iBsZWZ0 ZwQ2KGL3jDKxuD5dzEdkbbm ttS4kZka+LhjlzMqhCHI7WP k5Q4XwGic3YNQygSmbRQ3fg GFkZGlu Cp5ixQyrfMexGF1bCMKcbzy uk754JbXpz0vaEDIwbRRhID dtRXN2J37mx8Z5OZOvLKXcM CC5qYC7 wI5rnGptuobqyTVkqWudisN waJzzVYyfRYkpD648VROvoV wcWmHgGFe9A2NjYvu6OYSre NenQB0v sGJcXZffDd0ezBmaqAdnCU0 sNVWknsshp580ZiMkp5odBW FxyODfHEtcFMU8R99ln9L7S CMwMDAw KOC9cLA7uP1mjSvbajlzeRJ mdDsgdmVydGljYWwtYWxpZ2 79MLQizPwkFhYuzGx3I0TvQ ol8REUj xUozMB8stLXyQRvxXe0yrAs gzGawNB3iNGCrvguuc609Pi Xrq9clBBAlwJIsWBxpQEP7K 38hp7C4 KIGpLCPkBJO4nSE1aK4ewEk nbjogbGVmdDsgdmVydGljYW kdSRteH298ZYSzsGybYcFes GllbnQg XGdjFMq1E6EsUcphiTY+PC9 6HQDoSL28uIZmoFSpi7ymaH c5TePtNYGnLMK0pEtoHZxjw 3JkZXIt C86suZDrp0H6ZWFajLpcpEH nXlBxtMI5gU1bMPgibpdnd5 xmytxaNvcwd7xivc05vH07B 29sIHdp ZHRoPSIzMCUiIHZhbGlnbj0 zlW8tKh5+QSGaoNR4vKP5yV 4qLDWeKzL9FFguJ111WaHgq CIvPjxj e3rtt7atfCh7OvU2TWNywmE snZwpPYF9d4LxAy02N17fOI dpZHRoPSIyMCUiIHZhbGlnb r5ydL0z Ii8+OWEakQT2cDE8nB6pDtT pFqH6SJwcH716TxDquWXmZo zkG78cB1LwzBE+PESjEpv3M CBzdHls VO2hnXNwZVlfJt9iEHW7OfD mAkEmRPzeQ0EdZQFnwtcfob rmkPG0LWOoGZOxlB56Pd6kn DogMTBw kBJRrP9xmabwy5qquffaNfT iHHGoTEp9KMs2UPLusSelQw VoAMT6NyP4DPM1pMYmlH4pu Glnbjog hU6xZ1XwHJUkdkhbHn99yA9 kLqBqLmO5BGrmFtd+V0FTSU 2HJHdwVY1RK0eQMXfaAOqds GQ+PHRk BED5dNnhRJwbEYQskM8hLXO kN6u0KyTfFfH4CTaqP2GkAC PjfpgjHl07tK5hMjPjTbC7F GpgP2El ivT4WKRdnKLlPZyfMDT4W77 er1C7TTLiOMRjDVD2kNI5zU 1hbGlnbjogbGVmdDsgdmVyd GljYWwt XRgdG461VFQwuMhvHkWwJjM 4LnA9TVT0I6QfUmq4UKDarE voRJ2xeGTqEKiwGq2ypWvxc MxpNR8i KBIkveqdICWcgZ4lEULrzCH zoFvoQD7tDSJtckbum779Bz IdLEU9SMQitQStC7IufN9pR iAjMDAw WZHdK1RulQYaXGsiL725KLe bAsH9MYZwqlHuS6NlEKSzdW pjOsA7m9F0Ea22UILPOSDtm zwvdGQ+ LZQdWEU4mZywLMxmPBGxaI1 sXNJfZ8h3ZdDbObK2NZmxK1 OhPTZtfevuMx60pZ7eRsAmD eN1ZFah Z4MumfM0SNKgyLFjILcdCAX 3C90to5O4DMVaZWLcASX9qU M8uJ6zxSsoevjlyLGakAqpu mVydGlj WEysRKdoE811RDOnbRnyOp1 aaFR0C1YoUcm1MGZrtYvaVB 5auVHpJWrbXe3lgKfliYtdI D3wZGYd tohnICHgyS0pZHVjvAQmvMr sBH7mZHPorcexy182PkOgQS O2MDQutCZyK8OcaZ7bBeWfQ DAwMDAw M6KepOHlMXwcQ449BJvbHiS 5JHGmorFnN7IyWIAlcGebZy X8o5K6Am1NsKQwEMPvJE22Y B30UE47 B5YmClcefEBaySB+PHRhYmx lIHdpZHRoPScxMDAlJyBzdH ygRV8mTr0jDGYgZKJkvQbhw HNlOiBj i3euSQGhOJumNO7heVzzD5I pfNX8ZXMrc2n0Mm22F89cL8 JvdXA+MXUcmOB4lVA6cL8yV zAlIiB2 MTycW899FcMxpCIxPzmbb2k sf9jzcLf4OqWbLJEcwgZanW hiKCO5h4QsDl66X24xFSpgZ HRoPSIy NPGeZFCurZrrpx7ihR8vEq6 +FXJlxEE0tIP6nH6fFsDbSl N2FLnlZ472GlIvuELaMfptX 35nR4Re dXA+OJUgUkn7ALWkjNplCR9 hiQJpTBqvOq9uURI9MpCdOv CbMCvyK1AzWJCntfnfqacdl OC8RAAg ULVqcX84Cj7ijPdwTv0iDKH cCZP3FXGvoAXoV3YgcI9hTt SeXZZnCHNmH3OsyRMaANwkC 246IGxl TsZ1AQKzqxUrC2LzWBMirHg kZvN3c8Q8Mu9HvZxhiSOeZW 6tUeLnUMn1P9YhHar6VKOrc AbqSY9p bCLxMNjzKu4fcIycyTrnQC9 sEMYabhxhd164ZmVyh7fpPD WksMVkQUgnHLJ3Q66rc4P9Q CMwMDAw ALY8iZS2kY8mwBkkshwvcXR mdDsgdmVydGljYWwtYWxpZ2 62WDBjxNqxPjYNNhk0M1AdR hf1TSIw sFghDG0pxHSmYQxdWq6wqCp dlBlpTZ2oQESgyyjdi667Ng Lhm5zvEKGepZFpIYvlSYG0T 04po8M1 NPLwJTRfOLS3wNN4qR5vwGr nbjogbGVmdDsgdmVydGljYW gmCUdeR674JAQwzNzlTe7RU cy5U5Lr Udg5QFNzdVevRX0ykALaESr eKu3qhBbqkAkrJD9iAMEnrj jae069GrFsc9mbYAKgpSRhQ GltZXM7 O18gv1O3EJJcRKTmOZS9mFY 7vJ8znOgdeioneSEarDglqy RfxXvnMVbvJBbxF391UYFbk DsnPlBh eWVyOjwvdGQ+FG77yj63J6D tQgnvHuu9VUMvJEL5kTP1yG 2kJAUeWAgjy6G6eDS1Y2Bea oVfkg6h w0acOXZe (more content not included)... Normal [facility] Comprehensive metabolic 2000 panelon 02-05-2023 Albumin [Mass/Vol] 3.7 g/dL Low 3.9-4.9 [facility] Comment on above: Order Comment: Speci men Type: BLOOD SPECIMENOrdering Facility: [facility] Address: [address] [place] [address] Performed By: #### 2 4323-8 ####[facility] [id number] [place] [address] ALP [Catalytic activity/Vol] 105 U/L Normal 38-113 [facility] Comment on above: Order Comment: Speci men Type: BLOOD SPECIMENOrdering Facility: [facility] Address: [address] [address] Performed By: #### 2 4323-8 ####[facility] [id number] [place] [address] ALT [Catalytic activity/Vol] 11 U/L Normal 10-54 [facility] Comment on above: Order Comment: Speci men Type: BLOOD SPECIMENOrdering Facility: [facility] Address: [address] [address] Performed By: #### 2 4323-8 ####[facility] [id number] [place] [address] Anion gap [Moles/Vol] 10 mmol/L Normal 9-18 [facility] Comment on above: Order Comment: Speci men Type: BLOOD SPECIMENOrdering Facility: [facility] Address: [address] [address] Performed By: #### 2 4323-8 ####[facility] [id number] [place] [address] AST [Catalytic activity/Vol] 14 U/L Normal 14-40 [facility] Comment on above: Order Comment: Speci men Type: BLOOD SPECIMENOrdering Facility: [facility] Address: [address] [address] Performed By: #### 2 4323-8 ####[facility] [id number] [place] [address] Bilirubin [Mass/Vol] 0.8 mg/dL Normal 0.2-1.[address] [facility] Comment on above: Order Comment: Speci men Type: BLOOD SPECIMENOrdering Facility: [facility] Address: [address] [address] Performed By: #### 2 4323-8 ####[facility] [id number] [place] [address] Calcium [Mass/Vol] 9.2 mg/dL Normal 8.5-10.2 [facility] Comment on above: Order Comment: Speci men Type: BLOOD SPECIMENOrdering Facility: [facility] Address: [address] [place] [address] Performed By: #### 2 4323-8 ####[facility] [id number] [place] [address] Chloride [Moles/Vol] 107 mmol/L High 97-[address] [facility] Comment on above: Order Comment: Speci men Type: BLOOD SPECIMENOrdering Facility: [facility] Address: [address] [place] [address] Performed By: #### 2 4323-8 ####[facility] [id number] [place] [address] CO2 [Moles/Vol] 24 mmol/L Normal 22-30 [facility] Comment on above: Order Comment: Speci men Type: BLOOD SPECIMENOrdering Facility: [facility] Address: [address] [place] [address] Performed By: #### 2 4323-8 ####[facility] [id number] [place] [address] Creatinine [Mass/Vol] 1.10 mg/dL Normal 0.73-1.22 [facility] Comment on above: Order Comment: Speci men Type: BLOOD SPECIMENOrdering Facility: [facility] Address: [address] [place] [address] Performed By: #### 2 4323-8 ####[facility] [id number] [place] [address] ESTIMATED GLOMERULAR FILTRATION RATE 72 mL/min/1.73m??? Normal >=60 [facility] Comment on above: Order Comment: Speci men Type: BLOOD SPECIMENOrdering Facility: [facility] Address: [address] [place] [address] Result Comment: Rebekah mated Glomerular Filtration Rate [...] actual GFR. Performed By: #### 2 4323-8 ####[facility] LABCLIA [id number] [place] [address] Glucose [Mass/Vol] 108 mg/dL High 74-99 [facility] Comment on above: Order Comment: Speci men Type: BLOOD SPECIMENOrdering Facility: [facility] Address: [address] [place] [address] Result Comment: The [place] Diabetes Association (ADA) provides guidance for cutoff [...] Standards of Medical Care in Diabetes 2016, [employer] Diabetes Association. Diabetes Care. 2016.39(Suppl 1). Performed By: #### 2 4323-8 ####[facility] LABCLIA [id number] [place] [address] Potassium [Moles/Vol] 3.4 mmol/L Low 3.7-5.1 [facility] Comment on above: Order Comment: Speci men Type: BLOOD SPECIMENOrdering Facility: [facility] Address: [address] [place] [address] Performed By: #### 2 4323-8 ####[facility] LABCLIA [id number] [place] [address] Protein [Mass/Vol] 5.9 g/dL Low 6.3-8.0 [facility] Comment on above: Order Comment: Speci men Type: BLOOD SPECIMENOrdering Facility: [facility] Address: [address] [place] [address] Performed By: #### 2 4323-8 ####[facility] LABCLIA [id number] [place] [address] Sodium [Moles/Vol] 141 mmol/L Normal 136-144 [facility] Comment on above: Order Comment: Speci men Type: BLOOD SPECIMENOrdering Facility: [facility] Address: [address] [place] [address] Performed By: #### 2 4323-8 ####[facility] LABCLIA [id number] [place] [address] Urea nitrogen [Mass/Vol] 18 mg/dL Normal 9-24 [facility] Comment on above: Order Comment: Speci men Type: BLOOD SPECIMENOrdering Facility: [facility] Address: [address] [place] [id number] Performed By: #### 2 4323-8 ####[facility] LABIA [id number] [place] [address] CNOVon 02-04-2023 CNOV Normal [facility] Physician Orderon 02-01-2023 Physician Order [id number] CD:127 Normal [facility] Coding Summary.on 01-31-2023 Coding Summary. CD:[id number] Ww+ PGhlYWQ+PL3XDQUxD33liEX edZ6mB6DJWPbVVbvtCWGALN hYEvLpifDhQC3moNXdDPZm IC8+CQ1sSJByMwskkXCpd8X 9rIN7P59eac7vLWtucJF5MQ WqKcDqyfmal2wczHj9VLsnI mluOyBt CWQuvG14SHL4lV38Kw21iPR mnKNqe7pegBr2CgNeDSRmKT O5eIjmAAbqe1RgUQMaB13se QOeq1Q7 HWGfjPgvzLXfSmGkbKF3lL4 fRYcgnmdgq5vimfcdCpu0ij 95wGPpw0F0wEI6U9PdmfP6O GJvbGQg EagkfSQEpE9wakzgq5nvrha cHlAhNASwEOk3MKw2QLTadI xrTyGtWB81HNW0DEGcamRfL 2FsLWFs lYlsGtI7j4L4Tg7UK9CSRdo tF9TUXQOJNYuctSW+PC90cj 50U9LtZiurGez9PDHfNLN5u VN4vY2h XBCyFTlgd6O8vXM8P4EugkZ pep6rs0mvIRJoFQsvO08kxV Tdx0D1MUPlvUS6UKKhfGplH iBzaG93 Oyc+BGNeqMobs0LsSlllt5z au5zwpPt5HxxfOWIwhrXvqS qyZJS0o7MrZb2oRRKshBJ7y DZ4jU7y OkTxPwQ0YGrrS132CqEhwSD dZknyC47lR0ZqsXG+PHRyPj v1LQYhnOqeJB3uW3AdMWKxk mctbGVm oStzST9aTUWlmkfmVOJrnS6 qFJUtK9q5IfWxJgH4QUjfT0 BjXMJjwyowPz06sX9yMjRlN xD9RWbv O2UgfpF3ITEhlAOhPZwtESE 0R61lf3M4QXNhOACxXGT6fI N0pP7pgTlixuslqOXhxTvkv mVydGlj QSfbMKkfC392EUAhoNviRcL vZGluZyBEYXRlOiAgMDQvMT MvMjAyMzwvdGQ+HNNvZJO9v WxlPSAn nKNaADcxLt7qcIwhpEwuSU8 xHZBsxgpoTHWpjM6kCIRzkG PngRvyPK1jZXNtjminr363A iAxMHB0 ETRtoXGpW9HxfY2rDuQdKNR wMQGgN0QkdYAcGVhkI915TY utBeG2ERBfbkFgQ0SrPCGrq WduOiB0 k2T1Yq0Mh0EkoepqY6DcoFR iJwDxBwtuKAk4C1UtLqgayM I+WL76KAJpDR21KBr8LHQ7b WxlPSdi FYRqY4DolM4uJoMlMCJiIWN kOyc+PHRhYmxlIHdpZHRoPS alZEKwQuTumGdfYV5kKr1sE GVyLWNv tGkooTQuOxWhv6liRTQvIRq lMR0odOogW0SeiOY0ZENyf8 q5Re00L95aS3XraOF+PGNvb GI1lXI2 pO8yLvJmYlA8ZKrpG688KnX goGWiZdwnw5woy2sohXv7Sk F1RVPpfiJmkSbwZOJ9t0XtE s51Z94i IHdpZHRoPSIxNSUiIHZhbGl wtt1sdU3vTj4+NUNxlMN6kH N2sQ4wKpRgNsB9RMxoD064M nRvcCIv Sscmq0fwx0ycsSo8VyHiLJD uajPsoYdnGEC9z3FvVi63B5 UciCfnq0NvFhi4sh70dUBfi 3U2nBD5 M4NsSQZsaddaiAYzwMhsYL2 cQFPbwfgjIOVcoT4oBXAqV6 v8VpMbJxX2RRknT8ThegC3L GJvbGQg TQZfoWVRwG4bdtavl7vhmkl zNkEqYYLfPGs2OYq8RGAlxW nsMyCbMKQ2YhG4YWG1sTDju E8raPfc cjrjtB1lNtn+RWA7hZBsiNC KEM9yFjbeqPE+DLKnCGH2hH xqJOspEZWgkB7kTQPuX2i6E iAwLjA1 DCbgR5FtwbF7ZATyjSGuFGM tkPXHiG1xsvapv8hkxgjcMx JqYCFeDAo5IYt4QMTcsFizB iBsZWZ0 UfO9AQQ8mNEqfQ3tyIquohq ivY6bAzh+XpbukMhlEMO3XY p4N9AfZgn4FTVxsMojXH6px GFkZGlu Jb2buMmoxDcyJJ3dUGAfhos xw506WkVyl8slKICuhHXpRE fgDSW2Y87zc8L5AUVxAOGpS RU5mPX9 oR5pfXkyillfwUZchWlkosJ awYkoIVsaKNryQ290EYWcbV orAwUxVFt2E1VyLyr1MVEih QljKL5g lYZqZZryPf7rmKycxNyeJW7 hZYVchpqro803QsNaw8vyQV SctAJdPIfiGKV2O83mu5E1P CMwMDAw YDT9cIQ0yR6bwYczovjrmUQ mdDsgdmVydGljYWwtYWxpZ2 25UZYitIiiAeNgpTs6N6ZfO lq2LHIt sRwbGR4keQBgLVbeYu1mfXu znIfuYX1aHJBlkvrpj455Rh Nii0bkKZXafQTuAWbjDBS9I 54kz6V8 DOIkYDYyOXT4eFY3aD5mxEi nbjogbGVmdDsgdmVydGljYW sfRIwqZ957HEOeiClfVgLxl GllbnQg RReqXFo0H0QfDmgdqER+PC9 9NXTmYK66dKGxiPFwx9hrpP z1YsHuQDMsIFF2jGjuHFgdr 3JkZXIt S69fzRYne3X5OIYgmKpseEA sDaEfuAL0kL9iGAarjjhep4 bzitarLwkvp7mrmg90zN53Y 29sIHdp ZHRoPSIzMCUiIHZhbGlnbj0 wiB3wJh1+YLAavXE8xFA1tV 9kCZLdGgY2USjeQ651WqHhs CIvPjxj y9yyo0zcgAd1EiA4JKFqgzL hoSgzQAA9v5UkFg53C58eVQ dpZHRoPSIyMCUiIHZhbGlnb h5ruS3x Ii8+AGLldGH7gJI2eH2eLzN yIsW3TRnyZ048UcCiwPNrYi qaL50mS7QdhPY+JTXpWgr2P CBzdHls IW9qqGMoXNbzMy1qDCY6YeE nIsXuRIiiB8KyDQXskttjci vvqXY9ZNMvUTAlbD16Eb8iw DogMTBw oHPNtF3vewyib9ududhkApM fBYZvGZj0UHj8NXFtaMbsYu PtHXD9NzV3HVU0nZJerD4dn Glnbjog bE3kW9TlNKNdesndHl03mD2 lZkWxCpE9KBewBbr+V0FTSU 8MHSozZP5HI8fCLTdmPDmit GQ+PHRk GSL6jEkbRMmqTSMiaS2dCLU fR7y3LxKkZbF8KGboA9ZtGZ OytfotCk81yM6cPmIgYmN9R RxtX0Mk otN6KYQhfPQgPAoiCDZ5F89 ts5D3OSWtTQXtGEW0vYT1hL 1hbGlnbjogbGVmdDsgdmVyd GljYWwt NJbeU650LCQikVzlNjVaJvZ 6RdU0EYX5C5MtVvu0YNFuoU noQJ9epYDvYOaqQb4ykOjkg FseFM3u WCJuhdncLLEzpJ2ySGWiiGG ttXefUG8kGMCcmrlrh229Tq AmLYL4DRYjqNKgV9SecX6fW iAjMDAw JABdO7BtzAEpFMsqT086RMq aEzQ3RLJolyCjV1VkFEOleX ydAeF0i4F8Wz75MXGNJZMyz zwvdGQ+ DNSnIAH6zNsgBBubCTShoS4 zNSJnL6e5WmTwIeT3RIoyB9 FaNIDpxcstNl70fG0rZaLsN eA4VSij M1PemwP3IHTphAYvIXglVTZ 6M89gz8T4UZAeUEHbRJB9sO H9eF2iuNfkqcevgTPodLtdt mVydGlj CXetNRhiX232XFPboMybWy5 dcWC0M4CdFlv2KGPdiOleZL 0beKVuBRxxAu3ykXcluUfqH R5pFHGv izbfQZXfbB6dUGYynKHtuWf dQW8qUFJjupveo212CbQbPN W6BWCyjDXmF4XbyI3rFhTuJ DAwMDAw V2IbiUDxPBqeC190VVadEsR 2NMPgslEoE8CsIPLyzMueVb O7z0E9Xr2EuDNgLGZcNA68G E91GY25 E8WiLixmvHFwfAV+PHRhYmx lIHdpZHRoPScxMDAlJyBzdH veKW4eYy9dCUExEEZtlUghm HNlOiBj h2alWSTjKHrgDO6kqZmiO8Z lyZB3NTFan0b3Kz74D36eG1 JvdXA+EHMniLA8lVZ9jG3nF zAlIiB2 XNapM215GuYgzIBwKutwz0r gj8pdrOw8JpCrZOGpxpQydY rjBBO1i2ZuBz66P47hCWtnB HRoPSIy EHCdDOYfaKikdx3ssD0vOk7 +VRHflWL3vZD0nK3iVqSzAk R8CZjeQ784FdWxsZVpQxejK 78mH9Tj dXA+TJUpIep4CGQzuFouSC2 xnFLfRIrsLx5mRPV5SqJrAb SgDLjwL0NeYUAlotwypssvh DJ9KNMa DIVerW94Lz5ktXnuPk0jDXW zAJX7CPZgwFEaD5HivR9wEy BeZFMsYFJiH5DmaTRfYWdsQ 246IGxl UqK0AHVsjrMfZ9VjFGHatZx kTqG6f0K5Zp1FiRaimMMcOZ 0wPsBrAXc3Z8MsZvm9MCFpl UlfEB5q iVVaGWwgCb8soFzcxNmvXI2 nHWVcluvis458GkVye5uvEK DirCUvNXtxJLM3X38rn0M9S CMwMDAw CCV1cQX4lM2cjBcjxnwihEO mdDsgdmVydGljYWwtYWxpZ2 26SXNkcQabJyIROhc9T4GyA py2FTDp eNkiFW9rjTLpZYmtRl0abLk orIpgBI7lDEUhyhszo587Xk Vfk3rxWNTirBTxGCvmEHM7J 83gd6T4 IAWhONTxLVW9lOR8aE9glUw nbjogbGVmdDsgdmVydGljYW ciQNrfG762JOKujWhsWr0PJ sl1I8Jq Unr5TWCjyEzzIN5djNNtETu lRy0apPajcDrwCW7qQQPygm pgj484NnXfa8gzAZFlgTLsD GltZXM7 P52dx2H1DBKrTSOjZUD5mGJ 0tN6gwLgtlhsjqTJsxQqafo QnbDpfOSsdTUzgC046FRGrg DsnPlBh eWVyOjwvdGQ+HQ18ex71P0H qLmroOlz7CRLwVVD6dDD8uS 6eQZZaXSbcj5R8vES7X0Bzv wEail9y g7kiZYEw (more content not included)... Normal [facility] Consultation Noteon 01-25-20 23 Consultation Note [id number] D:127 Normal [facility] Office/Cl inic Noteon [...] patient is scheduled for a Doppler ultrasound [facility], 01/22/2023. Echocardiogram is normal, but it's perhaps [...] after patient or guardian consented to allow [employer] to record this visit. SHAMAR art specialist and provider reviewed before signing. SHAMAR: [...] Tab, See Instruction (more content not included)... [facility] Comment on above: Result Comment: Elec tronically [...] demonstrates spontaneous phasic venous flow. Ordering Provider: Andree Hollis FINAL REPORT Dictated: 01/23/2023 2:32 pm Maged Stringer M.D. Signed (Electronic Signature): 01/23/2023 2:32 pm Signed by: Maged Stringer M.D. Transcribed by: VEENA Technologist: ELIE [facility] CBC W Auto Differential pane l (Bld)on 01-22-2023 Basophils (Bld) [#/Vol] 0.05 10*3/uL Normal <0.11 [facility] Comment on above: Order Comment: Speci men Type: BLOOD SPECIMENOrdering Facility: [facility] Address: [address] [address] Performed By: #### 5 7021-8 ####[facility] LABCLIA [id number] [place] [address] Basophils/100 WBC (Bld) 0.5 % Normal [facility] Comment on above: Order Comment: Speci men Type: BLOOD SPECIMENOrdering Facility: [facility] Address: [address] [address] Performed By: #### 5 7021-8 ####[facility] LABCLIA [id number] [place] [address] Differential cell count method Nom (Bld) Auto Normal [facility] Comment on above: Order Comment: Speci men Type: BLOOD SPECIMENOrdering Facility: [facility] Address: [address] [place] [address] Performed By: #### 5 7021-8 ####[facility] LABCLIA [id number] [place] [address] Eosinophils (Bld) [#/Vol] 0.12 10*3/uL Normal <0.46 [facility] Comment on above: Order Comment: Speci men Type: BLOOD SPECIMENOrdering Facility: [facility] Address: [address] [address] Performed By: #### 5 7021-8 ####[facility] LABCLIA [id number] [place] [address] Eosinophils/100 WBC (Bld) 1.3 % Normal [facility] Comment on above: Order Comment: Speci men Type: BLOOD SPECIMENOrdering Facility: [facility] Address: [address] [address] Performed By: #### 5 7021-8 ####[facility] LABCLIA [id number] [place] [address] Erythrocyte distribution width (RBC) [Ratio] 17.2 % High 11.5-15.0 [facility] Comment on above: Order Comment: Speci men Type: BLOOD SPECIMENOrdering Facility: [facility] Address: [address] [place] [address] Performed By: #### 5 7021-8 ####[facility] LABIA [id number] [place] [address] Hematocrit (Bld) [Volume fraction] 37.2 % Low 39.0-51.0 [facility] Comment on above: Order Comment: Speci men Type: BLOOD SPECIMENOrdering Facility: [facility] Address: [address] [place] [address] Performed By: #### 5 7021-8 ####[facility] LABIA [id number] [place] [address] Hemoglobin (Bld) [Mass/Vol] 12.3 g/dL Low 13.0-17.0 [facility] Comment on above: Order Comment: Speci men Type: BLOOD SPECIMENOrdering Facility: [facility] Address: [address] [place] [address] Performed By: #### 5 7021-8 ####[facility] LABIA [id number] [place] [address] Immature granulocytes (Bld) [#/Vol] 0.05 10*3/uL Normal <0.10 [facility] Comment on above: Order Comment: Speci men Type: BLOOD SPECIMENOrdering Facility: [facility] Address: [address] [place] [address] Performed By: #### 5 7021-8 ####[facility] LABIA [id number] [place] [address] Immature granulocytes/100 WBC (Bld) 0.5 % Normal [facility] Comment on above: Order Comment: Speci men Type: BLOOD SPECIMENOrdering Facility: [facility] Address: [address] [place] [address] Performed By: #### 5 7021-8 ####[facility] LABIA [id number] [place] [address] Lymphocytes (Bld) [#/Vol] 0.79 10*3/uL Low 1.00-4.00 [facility] Comment on above: Order Comment: Speci men Type: BLOOD SPECIMENOrdering Facility: [facility] Address: [address] [place] [address] Performed By: #### 5 7021-8 ####[facility] LABIA [id number] [place] [address] Lymphocytes/100 WBC (Bld) 8.6 % Normal [facility] Comment on above: Order Comment: Speci men Type: BLOOD SPECIMENOrdering Facility: [facility] Address: [address] [place] [address] Performed By: #### 5 7021-8 ####[facility] LABIA [id number] [place] [address] MCH (RBC) [Entitic mass] 33.9 pg Normal 26.0-34.0 [facility] Comment on above: Order Comment: Speci men Type: BLOOD SPECIMENOrdering Facility: [facility] Address: [address] [place] [address] Performed By: #### 5 7021-8 ####[facility] LABCLIA [id number] [place] [address] MCHC (RBC) [Mass/Vol] 33.1 g/dL Normal 30.5-36.0 [facility] Comment on above: Order Comment: Speci men Type: BLOOD SPECIMENOrdering Facility: [facility] Address: [address] [place] [address] Performed By: #### 5 7021-8 ####[facility] LABCLIA [id number] [place] [address] MCV (RBC) [Entitic vol] 102.5 fL High 80.0-100.0 [facility] Comment on above: Order Comment: Speci men Type: BLOOD SPECIMENOrdering Facility: [facility] Address: [address] [place] [address] Performed By: #### 5 7021-8 ####[facility] LABCLIA [id number] [place] [address] Monocytes (Bld) [#/Vol] 0.82 10*3/uL Normal <0.87 [facility] Comment on above: Order Comment: Speci men Type: BLOOD SPECIMENOrdering Facility: [facility] Address: [address] [place] [address] Performed By: #### 5 7021-8 ####[facility] LABCLIA [id number] [place] [address] Monocytes/100 WBC (Bld) 8.9 % Normal [facility] Comment on above: Order Comment: Speci men Type: BLOOD SPECIMENOrdering Facility: [facility] Address: [address] [place] [address] Performed By: #### 5 7021-8 ####[facility] LABCLIA [id number] [place] [address] Neutrophils (Bld) [#/Vol] 7.36 10*3/uL Normal 1.45-7.50 [facility] Comment on above: Order Comment: Speci men Type: BLOOD SPECIMENOrdering Facility: [facility] Address: [address] [place] [address] Performed By: #### 5 7021-8 ####[facility] LABCLIA [id number] [place] [address] Neutrophils/100 WBC (Bld) 80.2 % Normal [facility] Comment on above: Order Comment: Speci men Type: BLOOD SPECIMENOrdering Facility: [facility] Address: [address] [place] [address] Performed By: #### 5 7021-8 ####[facility] LABCLIA [id number] [place] [address] Nucleated RBC (Bld) [#/Vol] 10*3/uL Normal <0.01 [facility] Comment on above: Order Comment: Speci men Type: BLOOD SPECIMENOrdering Facility: [facility] Address: [address] [place] [address] Performed By: #### 5 7021-8 ####[facility] LABCLIA [id number] [place] [address] Nucleated RBC/100 WBC (Bld) [Ratio] 0.0 /100 WBC Normal [facility] Comment on above: Order Comment: Speci men Type: BLOOD SPECIMENOrdering Facility: [facility] Address: [address] [place] [address] Performed By: #### 5 7021-8 ####[facility] LABCLIA [id number] [place] [address] Platelet mean volume (Bld) [Entitic vol] 10.1 fL Normal 9.0-12.7 [facility] Comment on above: Order Comment: Speci men Type: BLOOD SPECIMENOrdering Facility: [facility] Address: [address] [place] [address] Performed By: #### 5 7021-8 ####[facility] LABCLIA [id number] [place] [address] Platelets (Bld) [#/Vol] 113 10*3/uL Low 150-400 [facility] Comment on above: Order Comment: Speci men Type: BLOOD SPECIMENOrdering Facility: [facility] Address: [address] [place] [address] Performed By: #### 5 7021-8 ####[facility] LABCLIA [id number] [place] [address] RBC (Bld) [#/Vol] 3.63 10*6/uL Low 4.20-6.00 [facility] Comment on above: Order Comment: Speci men Type: BLOOD SPECIMENOrdering Facility: [facility] Address: [address] [address] Performed By: #### 5 7021-8 ####[facility] LABCLIA [id number] [place] [address] WBC (Bld) [#/Vol] 9.19 10*3/uL Normal 3.70-11.00 [facility] Comment on above: Order Comment: Speci men Type: BLOOD SPECIMENOrdering Facility: [facility] Address: [address] [address] Performed By: #### 5 7021-8 ####[facility] LABCLIA [id number] [place] [address] CEA SerPl-mCncon 01-22-2023 Carcinoembryonic Ag [Mass/Vol] 2.4 ng/mL Normal <=2.9 [facility] Comment on above: Order Comment: Speci men Type: BLOOD SPECIMENOrdering Facility: [facility] Address: [address] [address] Result Comment: Carc inoembryonic antigen test is used as an aid in monitoring response to treatment or recurrence in patients with established colorectal, breast, lung, prostatic, pancreatic, and ovarian carcinomas. Clinical correlation is required.The Carcinoembryonic antigen test was performed using the [employer] Un[employer]el DXI paramagnetic particle chemiluminescent immunoassay method. Results obtained with different assay methods or kits cannot be used interchangeably. Performed By: #### 2 039-6 ####[facility] LABCLIA [id number] [place] [address] [place] CNCNPATEDon 01-22-2023 CNCNPATED Normal [facility] CNOVSPon 01-22-2023 CNOVSP Normal [facility] CNPNon 01-22-2023 CNPN Normal [facility] Comprehensive metabolic 2000 panelon 01-22-2023 Albumin [Mass/Vol] 3.8 g/dL Low 3.9-4.9 [facility] Comment on above: Order Comment: Speci men Type: BLOOD SPECIMENOrdering Facility: [facility] Address: [address] [address] Performed By: #### 2 4323-8 ####[facility] LABCLIA [id number] [place] [address] ALP [Catalytic activity/Vol] 96 U/L Normal 38-113 [facility] Comment on above: Order Comment: Speci men Type: BLOOD SPECIMENOrdering Facility: [facility] Address: [address] [address] Performed By: #### 2 4323-8 ####[facility] LABCLIA [id number] [place] [address] ALT [Catalytic activity/Vol] 10 U/L Normal 10-54 [facility] Comment on above: Order Comment: Speci men Type: BLOOD SPECIMENOrdering Facility: [facility] Address: [address] [address] Performed By: #### 2 4323-8 ####[facility] LABCLIA [id number] [place] [address] Anion gap [Moles/Vol] 9 mmol/L Normal 9-18 [facility] Comment on above: Order Comment: Speci men Type: BLOOD SPECIMENOrdering Facility: [facility] Address: [address] [address] Performed By: #### 2 4323-8 ####[facility] LABCLIA [id number] [place] [address] AST [Catalytic activity/Vol] 12 U/L Low 14-40 [facility] Comment on above: Order Comment: Speci men Type: BLOOD SPECIMENOrdering Facility: [facility] Address: [address] [address] Performed By: #### 2 4323-8 ####[facility] LABCLIA [id number] [place] [address] Bilirubin [Mass/Vol] 0.9 mg/dL Normal 0.2-1.[address] [facility] Comment on above: Order Comment: Speci men Type: BLOOD SPECIMENOrdering Facility: [facility] Address: [address] [place] [address] Performed By: #### 2 4323-8 ####[facility] LABCLIA [id number] [place] [address] Calcium [Mass/Vol] 9.1 mg/dL Normal 8.5-10.2 [facility] Comment on above: Order Comment: Speci men Type: BLOOD SPECIMENOrdering Facility: [facility] Address: [address] [place] [address] Performed By: #### 2 4323-8 ####[facility] LABCLIA [id number] [place] [address] Chloride [Moles/Vol] 103 mmol/L Normal 97-[address] [facility] Comment on above: Order Comment: Speci men Type: BLOOD SPECIMENOrdering Facility: [facility] Address: [address] [place] [address] Performed By: #### 2 4323-8 ####[facility] LABCLIA [id number] [place] [address] CO2 [Moles/Vol] 27 mmol/L Normal 22-30 [facility] Comment on above: Order Comment: Speci men Type: BLOOD SPECIMENOrdering Facility: [facility] Address: [address] [place] [address] Performed By: #### 2 4323-8 ####[facility]CLIA [id number] [place] [address] Creatinine [Mass/Vol] 1.09 mg/dL Normal 0.73-1.22 [facility] Comment on above: Order Comment: Speci men Type: BLOOD SPECIMENOrdering Facility: [facility] Address: [facility] [place] [address] [address] Performed By: #### 2 4323-8 ####[facility] LABCLIA [id number] [place] [address] ESTIMATED GLOMERULAR FILTRATION RATE 73 mL/min/1.73m??? Normal >=60 [facility] Comment on above: Order Comment: Nazario brooks Type: BLOOD SPECIMENOrdering Facility: [facility] Address: [address] [place] [address] Result Comment: Rebekah mated Glomerular Filtration Rate [...] actual GFR. Performed By: #### 2 4323-8 ####[facility] LABCLIA [id number] [place] [address] Glucose [Mass/Vol] 100 mg/dL High 74-99 [facility] Comment on above: Order Comment: Nazario brooks Type: BLOOD SPECIMENOrdering Facility: [facility] Address: [address] [place] [address] Result Comment: The [place] Diabetes [employer] (ADA) provides guidance for cutoff [...] Standards of Medical Care in Diabetes 2016, [employer]. Diabetes Care. 2016.39(Suppl 1). Performed By: #### 2 4323-8 ####[facility] LABCLIA [id number] [place] [address] Potassium [Moles/Vol] 4.1 mmol/L Normal 3.7-5.1 [facility] Comment on above: Order Comment: Speci men Type: BLOOD SPECIMENOrdering Facility: [facility] Address: [address] [place] [address] Performed By: #### 2 4323-8 ####[facility] LABCLIA [id number] [place] [address] Protein [Mass/Vol] 6.0 g/dL Low 6.3-8.0 [facility] Comment on above: Order Comment: Speci men Type: BLOOD SPECIMENOrdering Facility: [facility] Address: [address] [place] [address] Performed By: #### 2 4323-8 ####[facility] LABIA [id number] [place] [address] Sodium [Moles/Vol] 139 mmol/L Normal 136-144 [facility] Comment on above: Order Comment: Speci men Type: BLOOD SPECIMENOrdering Facility: [facility] Address: [address] [place] [address] Performed By: #### 2 4323-8 ####[facility] LABIA [id number] [place] [address] Urea nitrogen [Mass/Vol] 17 mg/dL Normal 9-24 [facility] Comment on above: Order Comment: Speci men Type: BLOOD SPECIMENOrdering Facility: [facility] Address: [address] [place] [address] Performed By: #### 2 4323-8 ####[facility] LABIA [id number] [place] [address] Consent for Treatmenton Consent for Treatment [id number]#1.00C D:127 Normal [facility] Physician Orderon 01-22-2023 Physician Order [id number]#1.00C D:127 Normal [facility] CNPNon 01-18-2023 CNPN Normal [facility] Coding Summary.on 01-18-2023 Coding Summary. CD:[id number] Ww+ PGhlYWQ+NW1QWKPzB78hhEZ owR8vY4PSYBzVNilqGZVVUB mHEbVoayHiZP9qaPJjCLBy IC8+UX4xATRfScxdxSLat3W 2eLP2I51ghz7vBGkrmZR9ZI PrDaBfwyppv2umuDl7OUhrJ mluOyBt JQYpbW67PGX0bO91Tm23dON gnLTgu1ajyRu0DyXaPLLvKK H5aOapDMgkq4CbEXAeJ46wp EJwj8L6 KYCexWryjTEaCjAaiTA9pQ8 zYRihyrmbn2exczagKau8xe 43xUVas7G4jHN9E3EkbcJ0N GJvbGQg PtunrLQCfR3qpoqvj5dbrlp bIqLiKLHnBBc2YUk5XBFciX ebIxShQI98PHT1RGMjqjGtH 2FsLWFs zYbeKvR2u9F2Yf8CG2PGLuv aN8VPUCLUDFogdUR+PC90cj 30J5AiKpwnDgn3QVBsIRY5l CM9lY0b UMDlGTmkr1U8sYQ0H8PfbmI kly2es5csVXMcCQrbK43skB Uhu6J9TFBzrAN7ZQRypUjnV iBzaG93 Oyc+IWOlpSjif8FtEvzyw7s gv3mmvSe9NjuiKFRgniJzaS ojIGK7q8TvIj5vMGLhpIL2y PA6oG4n HaRsNbR7YRibB452JzYpjEE fNmilS47aJ4XnzAB+PHRyPj l8GIDvfIltMX9xB7CbMYOdk mctbGVm yCtaBX2oNWErjgjgSZSwcE8 lCVTsA2l5KxNxBmR9ILpwW7 GxQONstsqtCm91dE0kGsAwP cO2UBeq Z3TkuuP6KNKthQCbFXvzAYB 5Q58oi9U2OJVlQVDlLAU2dR G2mZ4pmQezyvlftNKwgDmvf mVydGlj XIueEDfkO827XFSssSgnXuL vZGluZyBEYXRlOiAgMDMvMz EvMjAyMzwvdGQ+PJRkHLX5x WxlPSAn dHTvIBxuYc9lyAtrfOtqPD8 cYZXuczlsNPJfiM9fQNWsaU YvfMalLZ1rACZuhqctv301C iAxMHB0 BRRavFPsR3DdyX2oCjQvBPU cQVZdY8DdvSAfPRlrL278BG ybPqJ6RNXpogFbU5YoQDHog WduOiB0 d7Z9Hb9Yk9WammkcR0JmwUD pIsKgRbknPGh5Z6ZxErmnuD I+ND61WGPgBY99ZDq8JEG9t WxlPSdi XQMdG7OqqA1qWhAwJNGoVUQ kOyc+PHRhYmxlIHdpZHRoPS wkRXKfXrVvrXauWW9wMq8kY GVyLWNv fUpslLBnJyYrm6deZECjVLe tJR8lwLckP1AdaTM9KSKqa1 y8Mr06U71wX3ZlqQC+PGNvb EO3xLW2 iC6gPqPaFpW9UJosD594CvM ehUCcLnmbj3dwd7femVh8Is F5PQNodpRdvEuoOQD3m1KbV t51C73k IHdpZHRoPSIxNSUiIHZhbGl rmd7gpP4bGh5+STAbnSH4qU S5vR7gBtPuRnR9DOswR426V nRvcCIv Ejtwj5cbz3pzjGr0KlXjIZE sdiSapNihGXM4d7CtJp54H6 SyxLhhg7CvCnk6pn25oPMwi 7D7tYT2 D6XcNXYyltysoSNmpJneOL8 dNGOoxwvuUPNjnD0bDRFkS7 o2AsNxMzR5YLheV6VhtbC5J GJvbGQg XLTrcZJWmW8zpzfzg2dvole aAzHeUPTaOCj5LEj4GDFpcP ojSbLcLHJ2ClQ9ISZ2gTHnp G4orGiv fvnxrT0uSdr+TZQ6mRGnqXA FER4yGftnnKX+VZCvKSZ8oE ifHPqwJOPsdB6lPJPkH8x5J iAwLjA1 YKupH4BjgzI7UMQxnJErUBK agTEEpE6etumtx4cqevyqLl FpOEIvWVk1WNy5XKIqfPxkV iBsZWZ0 LgC3BUU6gUJvaD2pjYsonyu jaT7pGlj+WfoujUpiPPL4SO o6B2OhAhk9LCZdoUrqSP1ym GFkZGlu Tk4wpYxcwNlxHX3lPNXvdkg ri936QsOyd2tmPETltDDwYS llNPD1K56ea6K6OJExWAJwC JU3kUY8 vQ2zpThflflroQNowRavbdL smImeXUtwFOpuI617DMMybZ vkKbUmSOu2I8RrIcu6ZJDjc TzfDX7z eAPfYTfcPw0ldVyjcDjuYK2 kWNUyrsfub453UxYwi3nyGL DaqSTeFMdmCZR9F71aa2N0E CMwMDAw PAF7bLN7uO8saOdzftxbgSJ mdDsgdmVydGljYWwtYWxpZ2 94TQZoyJerDqUaxFr1P1JhO um8YRQx vQfgHD6nkKSrMXtoLv7djSc ghGniRJ3bYVFsywknm643Uf Rlg6nbPJRmzHMeBGbcODC7L 66zw6R7 VADsCIHlSDA5eZR9iA6aiBw nbjogbGVmdDsgdmVydGljYW dkPQyjS037QMNbjUerGuJfa GllbnQg XAaoARq7T0FhFfymhGA+PC9 3GJVhLQ54mZQdxGVpv9bvpC t8LyJcZWImJNQ2jAskLQqeb 3JkZXIt H23zrKUxt3I5NNWypLqnzRP iJoCqkIP9yW1sWKswbrijk7 dmnoznHgjhg2prmj68oT14G 29sIHdp ZHRoPSIzMCUiIHZhbGlnbj0 uvZ5rSu6+EOHxuYO6hFX5cF 8yXMAzOjS9JCxsM838YaRjt CIvPjxj e3syr4gxjIh5CwV8OJAyibV xoQnpLDC1a7MxNz32K46oWE dpZHRoPSIyMCUiIHZhbGlnb t4soO8i Ii8+KCDvfBW2fGB8iK6nXuY zIeP2VGosF304HlPkgRVcHu lsJ22vY7GycZF+MBXzPup2Y CBzdHls BQ3eeRMtFBkoMa3mLGK7OtH kIpVmKHmvU4XkQLWarhejfj ilaTG3HHZuPUPkmR29Xo9by DogMTBw bQIKlJ3mgbhmi1ligxdqShF iEEZyEOs8KUr1CWScnLnfIj GfQMF9GwA7DVJ8eQZvqJ4ao Glnbjog rB8cZ4QcICIufjztZe11kW5 bLdKlPfA2DAolUcd+V0FTSU 3DSQzpIN0IF6tLQRoxQIime GQ+PHRk SPN0rUacGFwzVJKnsB7lKFF yC4z2PbPfZsJ4LYkjI3JqFK ZvqgtaZv09aE1xHbEbKzF6B MroI2Yv jmS6TTPwlSHqQWagKNS5Q58 ts9H9DWYdKQPyFII2wIL5eV 1hbGlnbjogbGVmdDsgdmVyd GljYWwt NEwfF573OXAnnTheXwZbGkQ 7NrU9YZW0R7YaMju7XRCihM ckML4wuMUvUHbkCa9znEkro FapMO4d WKSlkhutDLAnqC8iEIIdiHM uwWgnZX3tBLGiodhpq793Fh OiWBY2EAEbrCCeA5MlrJ1iY iAjMDAw ORMyJ9AzjRKmDBfbN994FRr cEzD2NJWjwyFhT4CfLGZqpQ aaVrU5n7T0Gy37GRGPPKAqh zwvdGQ+ KCXmXAL7cPybTLyuTHUxyV1 gYXQnJ3w9AhOnWyK3LXlpZ4 MaICQdoezrJp40xB9sBgXpO yB9JSum T0LcxmI8NNSlvHXwGSmcXXM 4G51yd4C7ACMkQLJbKQD6hJ J7nN0odJsqcqvfoONuvNlbf mVydGlj XAyvURkaE750XGNceYmwIm5 veDN4X7JmZqs7CMPkxHrgEZ 8ipTVuVOeqWk8yyXzmkDcnQ X1mHGOc lfzgWAJmxJ0tRLBavRMdoGi yFB5cKHPpcaiso033MwFeLR J2DVLmtLXyN4LxkG3jFiEaC DAwMDAw W7RvxTZtBXxmR380QVnjXtN 7OCRecfZeX0NjEMZaaBzxAc L7h8G2Hy3IeULkNFMkUU01C V11WZ34 W2SoYpeviHTocFG+PHRhYmx lIHdpZHRoPScxMDAlJyBzdH wsMM6bRw6pBAObKBSvvNnsj HNlOiBj e2inDUQzHMeyEE3lzOfcO9D fhOK7VJVob8v8Tl61X77jQ0 JvdXA+RLSkgYE0qNM7aX2pY zAlIiB2 GLthO528FsLyqPPjPkyit3i op7ndpNm2DzKcNTMaapKemF syLFZ0t8EiQh51G66kFOitD HRoPSIy WAXqHRHzyXwppy1gkK5gPe1 +VPUupOK3vUG9mL2tMaLtLx D2FAbgY688FgVmoOPiYvllV 96kU5Bl dXA+RGXcSeb0PJCqdOoqIQ0 ghGHdERdyUh2hJHW1XxYeFo DpERwqH2WaYLVvjmwfyloti VK7GDUv BXFqbY91Mj0xoPvgDh5mEPN tBQR7QZYorSDkF6BivU5oRm IxBUKnISReE3CzlFKcCBkyP 246IGxl SpU7QWOfluRkS5XfSTRtbMk aEyE3q6G3Yz1OjQasbWNjEK 6zDzBcXFn7F5YyRhn9CUYin MdmWX4i mHKoBVfbMn3moLvpdHvbYB1 iGBGgbnswl881YqItg9zuZN LtjMUyNVqkOAM4S40hv3E4X CMwMDAw IKW4cHA1nK5ucQxmtbuovIW mdDsgdmVydGljYWwtYWxpZ2 39NNZqrWutZjPSVjl5J2FgG ov2FPQs tOzdZL0taDJnVIasSc1ftCt nuPanUX4tPGTnvmocj560Ev Rrc1sqDOCwwKEsGAcaNLO3I 58df6V4 GDInXAFmRPF3vLC9fQ6bhDs nbjogbGVmdDsgdmVydGljYW uePGzvY429ALHjoUynVs5NN vt0M6Ph Vdp6HRFzuFcuIP8hrDXrPIj aKd3yxTrzdXtxXO9bIJXlgz yay126ErRkw4myTOJjcLShL GltZXM7 N24es9X0KIWyHMShBJC2yJP 0yJ7vpToserkjqNBkhVbbro ZabEqoOGpzQCfjA396BQIvb DsnPlBh eWVyOjwvdGQ+SG68pv53A5R xUbfjLhn8XIFjEIQ7fEB8gQ 7uVPMgMVizo6S9lZA1S7Lyi uDjxg8k c1zjNCAb (more content not included)... Normal [facility] CNPNon 01-14-2023 CNPN Normal [facility] Consent for Treatmenton 12-20 Consent for Treatment [id number]#1.00C D:127 Normal [facility] Consultation Noteon 01-10-20 23 Consultation Note [id number]#[id number] :127 Normal [facility] Basic metabolic 2000 panelon 01-08-2023 Anion gap [Moles/Vol] 11 mmol/L Normal 9-18 [facility] Comment on above: Order Comment: Speci men Type: BLOOD SPECIMENOrdering Facility: [facility] Address: [address] [place] [address] Performed By: #### 2 4321-2 ####[facility] LABCLIA [id number] [place] [address] Calcium [Mass/Vol] 9.3 mg/dL Normal 8.5-10.2 [facility] Comment on above: Order Comment: Speci men Type: BLOOD SPECIMENOrdering Facility: [facility] Address: [address] [address] Performed By: #### 2 4321-2 ####[facility] LABCLIA [id number] [place] [address] Chloride [Moles/Vol] 106 mmol/L High 97-[address] [facility] Comment on above: Order Comment: Speci men Type: BLOOD SPECIMENOrdering Facility: [facility] Address: [address] [place] [address] Performed By: #### 2 4321-2 ####[facility] LABCLIA [id number] [place] [address] CO2 [Moles/Vol] 25 mmol/L Normal 22-30 [facility] Comment on above: Order Comment: Speci men Type: BLOOD SPECIMENOrdering Facility: [facility] Address: [address] [place] [address] Performed By: #### 2 4321-2 ####[facility] LABCLIA [id number] [place] [address] Creatinine [Mass/Vol] 1.12 mg/dL Normal 0.73-1.22 [facility] Comment on above: Order Comment: Speci men Type: BLOOD SPECIMENOrdering Facility: [facility] Address: [address] [place] [address] Performed By: #### 2 4321-2 ####[facility] LABCLIA [id number] [place] [address] ESTIMATED GLOMERULAR FILTRATION RATE 71 mL/min/1.73m??? Normal >=60 [facility] Comment on above: Order Comment: Speci men Type: BLOOD SPECIMENOrdering Facility: [facility] Address: [address] [place] [address] Result Comment: Rebekah mated Glomerular Filtration Rate [...] actual GFR. Performed By: #### 2 4321-2 ####[facility] LABCLIA [id number] [place] [address] Glucose [Mass/Vol] 118 mg/dL High 74-99 [facility] Comment on above: Order Comment: Speci men Type: BLOOD SPECIMENOrdering Facility: [facility] Address: [address] [place] [address] Result Comment: The [place] Diabetes Association (ADA) provides guidance for cutoff [...] Standards of Medical Care in Diabetes 2016, [employer]. Diabetes Care. 2016.39(Suppl 1). Performed By: #### 2 4321-2 ####[facility] LABCLIA [id number] [place] [address] Potassium [Moles/Vol] 3.9 mmol/L Normal 3.7-5.1 [facility] Comment on above: Order Comment: Speci men Type: BLOOD SPECIMENOrdering Facility: [facility] Address: [address] [place] [address] Performed By: #### 2 4321-2 ####[facility] LABCLIA [id number] [place] [address] Sodium [Moles/Vol] 142 mmol/L Normal 136-144 [facility] Comment on above: Order Comment: Speci men Type: BLOOD SPECIMENOrdering Facility: [facility] Address: [address] [place] [address] Performed By: #### 2 4321-2 ####[facility] LABCLIA [id number] [place] [address] Urea nitrogen [Mass/Vol] 18 mg/dL Normal 9-24 [facility] Comment on above: Order Comment: Speci men Type: BLOOD SPECIMENOrdering Facility: [facility] Address: [address] [address] Performed By: #### 2 4321-2 ####[facility] LABCLIA [id number] [place] [address] Anion gap [Moles/Vol] 11 mmol/L 9 - 18 mmol/L [facility] Calcium [Mass/Vol] 9.3 mg/dL 8.5 - 10. 2 mg/dL [facility] Chloride [Moles/Vol] 106 mmol/L High 97 - 10 5 mmol/L [facility] CO2 [Moles/Vol] 25 mmol/L 22 - 30 mmol/L [facility] Creatinine [Mass/Vol] 1.12 mg/dL 0.73 - 1.22 mg/dL [facility] Estimated Glomerular Filtration Rate 71 mL/min/1.73m >=60 mL/min/1.73 m [facility] Glucose [Mass/Vol] 118 mg/dL High 74 - 99 mg/dL [facility] Potassium [Moles/Vol] 3.9 mmol/L 3.7 - 5.1 mmol/L [facility] Sodium [Moles/Vol] 142 mmol/L 136 - 144 mmol/L [facility] Urea nitrogen [Mass/Vol] 18 mg/dL 9 - 24 mg/dL [facility] CBC W Auto Differential pane l (Bld)on 01-08-2023 Basophils (Bld) [#/Vol] 0.06 10*3/uL Normal <0.11 [facility] Comment on above: Order Comment: Speci men Type: BLOOD SPECIMENOrdering Facility: [facility] Address: [address] [address] Performed By: #### 5 7021-8 ####[facility] LABCLIA [id number] [place] [address] Basophils/100 WBC (Bld) 0.8 % Normal [facility] Comment on above: Order Comment: Speci men Type: BLOOD SPECIMENOrdering Facility: [facility] Address: [address] [address] Performed By: #### 5 7021-8 ####[facility] LABCLIA [id number] [place] [address] Differential cell count method Nom (Bld) Auto Normal [facility] Comment on above: Order Comment: Speci men Type: BLOOD SPECIMENOrdering Facility: [facility] Address: [address] [place] [address] Performed By: #### 5 7021-8 ####[facility] LABCLIA [id number] [place] [address] Eosinophils (Bld) [#/Vol] 0.33 10*3/uL Normal <0.46 [facility] Comment on above: Order Comment: Speci men Type: BLOOD SPECIMENOrdering Facility: [facility] Address: [address] [place] [address] Performed By: #### 5 7021-8 ####[facility] LABCLIA [id number] [place] [address] Eosinophils/100 WBC (Bld) 4.3 % Normal [facility] Comment on above: Order Comment: Speci men Type: BLOOD SPECIMENOrdering Facility: [facility] Address: [address] [place] [address] Performed By: #### 5 7021-8 ####[facility] LABCLIA [id number] [place] [address] Erythrocyte distribution width (RBC) [Ratio] 16.3 % High 11.5-15.0 [facility] Comment on above: Order Comment: Speci men Type: BLOOD SPECIMENOrdering Facility: [facility] Address: [address] [place] [address] Performed By: #### 5 7021-8 ####[facility] LABCLIA [id number] [place] [address] Hematocrit (Bld) [Volume fraction] 36.0 % Low 39.0-51.0 [facility] Comment on above: Order Comment: Speci men Type: BLOOD SPECIMENOrdering Facility: [facility] Address: [address] [address] Performed By: #### 5 7021-8 ####[facility] LABCLIA [id number] [place] [address] Hemoglobin (Bld) [Mass/Vol] 11.9 g/dL Low 13.0-17.0 [facility] Comment on above: Order Comment: Speci men Type: BLOOD SPECIMENOrdering Facility: [facility] Address: [address] [address] Performed By: #### 5 7021-8 ####[facility] LABIA [id number] [place] [address] Immature granulocytes (Bld) [#/Vol] 0.03 10*3/uL Normal <0.10 [facility] Comment on above: Order Comment: Speci men Type: BLOOD SPECIMENOrdering Facility: [facility] Address: [address] [address] Performed By: #### 5 7021-8 ####[facility] LABIA [id number] [place] [address] Immature granulocytes/100 WBC (Bld) 0.4 % Normal [facility] Comment on above: Order Comment: Speci men Type: BLOOD SPECIMENOrdering Facility: [facility] Address: [address] [address] Performed By: #### 5 7021-8 ####[facility] LABIA [id number] [place] [address] Lymphocytes (Bld) [#/Vol] 0.71 10*3/uL Low 1.00-4.00 [facility] Comment on above: Order Comment: Speci men Type: BLOOD SPECIMENOrdering Facility: [facility] Address: [address] [address] Performed By: #### 5 7021-8 ####[facility] LABCLIA [id number] [place] [address] Lymphocytes/100 WBC (Bld) 9.3 % Normal [facility] Comment on above: Order Comment: Speci men Type: BLOOD SPECIMENOrdering Facility: [facility] Address: [address] [place] [address] Performed By: #### 5 7021-8 ####[facility] LABCLIA [id number] [place] [address] MCH (RBC) [Entitic mass] 33.4 pg Normal 26.0-34.0 [facility] Comment on above: Order Comment: Speci men Type: BLOOD SPECIMENOrdering Facility: [facility] Address: [address] [place] [address] Performed By: #### 5 7021-8 ####[facility] LABCLIA [id number] [place] [address] MCHC (RBC) [Mass/Vol] 33.1 g/dL Normal 30.5-36.0 [facility] Comment on above: Order Comment: Speci men Type: BLOOD SPECIMENOrdering Facility: [facility] Address: [address] [place] [address] Performed By: #### 5 7021-8 ####[facility] LABCLIA [id number] [place] [address] MCV (RBC) [Entitic vol] 101.1 fL High 80.0-100.0 [facility] Comment on above: Order Comment: Speci men Type: BLOOD SPECIMENOrdering Facility: [facility] Address: [address] [place] [address] Performed By: #### 5 7021-8 ####[facility] LABIA [id number] [place] [address] Monocytes (Bld) [#/Vol] 0.74 10*3/uL Normal <0.87 [facility] Comment on above: Order Comment: Speci men Type: BLOOD SPECIMENOrdering Facility: [facility] Address: [address] [address] Performed By: #### 5 7021-8 ####[facility] LABCLIA [id number] [place] [address] Monocytes/100 WBC (Bld) 9.7 % Normal [facility] Comment on above: Order Comment: Speci men Type: BLOOD SPECIMENOrdering Facility: [facility] Address: [address] [address] Performed By: #### 5 7021-8 ####[facility] LABCLIA [id number] [place] [address] Neutrophils (Bld) [#/Vol] 5.76 10*3/uL Normal 1.45-7.50 [facility] Comment on above: Order Comment: Speci men Type: BLOOD SPECIMENOrdering Facility: [facility] Address: [address] [address] Performed By: #### 5 7021-8 ####[facility] LABIA [id number] [place] [address] Neutrophils/100 WBC (Bld) 75.5 % Normal [facility] Comment on above: Order Comment: Speci men Type: BLOOD SPECIMENOrdering Facility: [facility] Address: [address] [address] Performed By: #### 5 7021-8 ####[facility] LABCLIA [id number] [place] [address] Nucleated RBC (Bld) [#/Vol] 10*3/uL Normal <0.01 [facility] Comment on above: Order Comment: Speci men Type: BLOOD SPECIMENOrdering Facility: [facility] Address: [address] [place] [address] Performed By: #### 5 7021-8 ####[facility] LABCLIA [id number] [place] [address] Nucleated RBC/100 WBC (Bld) [Ratio] 0.0 /100 WBC Normal [facility] Comment on above: Order Comment: Speci men Type: BLOOD SPECIMENOrdering Facility: [facility] Address: [address] [place] [address] Performed By: #### 5 7021-8 ####[facility] LABCLIA [id number] [place] [address] Platelet mean volume (Bld) [Entitic vol] 10.1 fL Normal 9.0-12.7 [facility] Comment on above: Order Comment: Speci men Type: BLOOD SPECIMENOrdering Facility: [facility] Address: [address] [place] [address] Performed By: #### 5 7021-8 ####[facility] LABIA [id number] [place] [address] Platelets (Bld) [#/Vol] 176 10*3/uL Normal 150-400 [facility] Comment on above: Order Comment: Speci men Type: BLOOD SPECIMENOrdering Facility: [facility] Address: [address] [place] [address] Performed By: #### 5 7021-8 ####[facility] LABCLIA [id number] [place] [address] RBC (Bld) [#/Vol] 3.56 10*6/uL Low 4.20-6.00 [facility] Comment on above: Order Comment: Speci men Type: BLOOD SPECIMENOrdering Facility: [facility] Address: [address] [place] [address] Performed By: #### 5 7021-8 ####[facility] LABIA [id number] [place] [address] WBC (Bld) [#/Vol] 7.63 10*3/uL Normal 3.70-11.00 [facility] Comment on above: Order Comment: Speci men Type: BLOOD SPECIMENOrdering Facility: [facility] Address: [place] [address] Performed By: #### 5 7021-8 ####[facility] LABCLIA [id number] [place] [address] Basophils (Bld) [#/Vol] 0.06 10*3/uL <0.11 k/uL [facility] Basophils/100 WBC (Bld) 0.8 % [facility] Differential cell count method Nom (Bld) Auto [facility] Eosinophils (Bld) [#/Vol] 0.33 10*3/uL <0.46 k/uL [facility] Eosinophils/100 WBC (Bld) 4.3 % [facility] Erythrocyte distribution width (RBC) [Ratio] 16.3 % High 11.5 - 15.0 % [facility] Hematocrit (Bld) [Volume fraction] 36.0 % Low 39.0 - 51.0 % [facility] Hemoglobin (Bld) [Mass/Vol] 11.9 g/dL Low 13.0 - 17.0 g/dL [facility] Immature granulocytes (Bld) [#/Vol] 0.03 10*3/uL <0.10 k/uL [facility] Immature granulocytes/100 WBC (Bld) 0.4 % [facility] Lymphocytes (Bld) [#/Vol] 0.71 10*3/uL Low 1.00 - 4.00 k/uL [facility] Lymphocytes/100 WBC (Bld) 9.3 % [facility] MCH (RBC) [Entitic mass] 33.4 pg 26.0 - 34.0 pg [facility] MCHC (RBC) [Mass/Vol] 33.1 g/dL 30.5 - 36.0 g/dL [facility] MCV (RBC) [Entitic vol] 101.1 fL High 80.0 - 100.0 fL [facility] Monocytes (Bld) [#/Vol] 0.74 10*3/uL <0.87 k/uL [facility] Monocytes/100 WBC (Bld) 9.7 % [facility] Neutrophils (Bld) [#/Vol] 5.76 10*3/uL 1.45 - 7.50 k/uL [facility] Neutrophils/100 WBC (Bld) 75.5 % [facility] Nucleated RBC (Bld) [#/Vol] <0.01 k/uL [facility] Nucleated RBC/100 WBC (Bld) [Ratio] 0.0 /100 WBC [facility] Platelet mean volume (Bld) [Entitic vol] 10.1 fL 9.0 - 12.7 fL [facility] Platelets (Bld) [#/Vol] 176 10*3/uL 150 - 400 k/uL [facility] RBC (Bld) [#/Vol] 3.56 10*6/uL Low 4.20 - 6.0 0 m/uL [facility] WBC (Bld) [#/Vol] 7.63 10*3/uL 3.70 - 11.00 k/uL [facility] CNCNPATEDon 01-08-2023 CNCNPATED Normal [facility] CNOVSPon 01-08-2023 CNOVSP Normal [facility] CNPNon 12-28-2022 CNPN Normal [facility] CBC W Auto Differential pane l (Bld)on 12-25-2022 Basophils (Bld) [#/Vol] 0.06 10*3/uL Normal <0.11 [facility] Comment on above: Order Comment: Speci men Type: BLOOD SPECIMENOrdering Facility: [facility] Address: [address] [address] Performed By: #### 5 7021-8 ####[facility] LABIA [id number] [place] [address] Basophils/100 WBC (Bld) 0.9 % Normal [facility] Comment on above: Order Comment: Speci men Type: BLOOD SPECIMENOrdering Facility: [facility] Address: [address] [address] Performed By: #### 5 7021-8 ####[facility] LABIA [id number] [place] [address] Differential cell count method Nom (Bld) Auto Normal [facility] Comment on above: Order Comment: Speci men Type: BLOOD SPECIMENOrdering Facility: [facility] Address: [address] [address] Performed By: #### 5 7021-8 ####[facility] LABCLIA [id number] [place] [address] Eosinophils (Bld) [#/Vol] 0.25 10*3/uL Normal <0.46 [facility] Comment on above: Order Comment: Speci men Type: BLOOD SPECIMENOrdering Facility: [facility] Address: [address] [place] [address] Performed By: #### 5 7021-8 ####[facility] LABCLIA [id number] [place] [address] Eosinophils/100 WBC (Bld) 3.6 % Normal [facility] Comment on above: Order Comment: Speci men Type: BLOOD SPECIMENOrdering Facility: [facility] Address: [address] [place] [address] Performed By: #### 5 7021-8 ####[facility] LABCLIA [id number] [place] [address] Erythrocyte distribution width (RBC) [Ratio] 17.8 % High 11.5-15.0 [facility] Comment on above: Order Comment: Speci men Type: BLOOD SPECIMENOrdering Facility: [facility] Address: [address] [place] [address] Performed By: #### 5 7021-8 ####[facility] LABCLIA [id number] [place] [address] Hematocrit (Bld) [Volume fraction] 39.4 % Normal 39.0-51.0 [facility] Comment on above: Order Comment: Speci men Type: BLOOD SPECIMENOrdering Facility: [facility] Address: [address] [place] [address] Performed By: #### 5 7021-8 ####[facility] LABCLIA [id number] [place] [address] Hemoglobin (Bld) [Mass/Vol] 13.2 g/dL Normal 13.0-17.0 [facility] Comment on above: Order Comment: Speci men Type: BLOOD SPECIMENOrdering Facility: [facility] Address: [address] [place] [address] Performed By: #### 5 7021-8 ####[facility] LABCLIA [id number] [place] [address] Immature granulocytes (Bld) [#/Vol] 0.05 10*3/uL Normal <0.10 [facility] Comment on above: Order Comment: Speci men Type: BLOOD SPECIMENOrdering Facility: [facility] Address: [address] [address] Performed By: #### 5 7021-8 ####[facility] LABCLIA [id number] [place] [address] Immature granulocytes/100 WBC (Bld) 0.7 % Normal [facility] Comment on above: Order Comment: Speci men Type: BLOOD SPECIMENOrdering Facility: [facility] Address: [address] [address] Performed By: #### 5 7021-8 ####[facility] LABCLIA [id number] [place] [address] Lymphocytes (Bld) [#/Vol] 0.83 10*3/uL Low 1.00-4.00 [facility] Comment on above: Order Comment: Speci men Type: BLOOD SPECIMENOrdering Facility: [facility] Address: [address] [address] Performed By: #### 5 7021-8 ####[facility] LABCLIA [id number] [place] [address] Lymphocytes/100 WBC (Bld) 11.9 % Normal [facility] Comment on above: Order Comment: Speci men Type: BLOOD SPECIMENOrdering Facility: [facility] Address: [address] [address] Performed By: #### 5 7021-8 ####[facility] LABCLIA [id number] [place] [address] MCH (RBC) [Entitic mass] 33.8 pg Normal 26.0-34.0 [facility] Comment on above: Order Comment: Speci men Type: BLOOD SPECIMENOrdering Facility: [facility] Address: [address] [place] [address] Performed By: #### 5 7021-8 ####[facility] LABCLIA [id number] [place] [address] MCHC (RBC) [Mass/Vol] 33.5 g/dL Normal 30.5-36.0 [facility] Comment on above: Order Comment: Speci men Type: BLOOD SPECIMENOrdering Facility: [facility] Address: [address] [place] [address] Performed By: #### 5 7021-8 ####[facility] LABIA [id number] [place] [address] MCV (RBC) [Entitic vol] 100.8 fL High 80.0-100.0 [facility] Comment on above: Order Comment: Speci men Type: BLOOD SPECIMENOrdering Facility: [facility] Address: [address] [place] [address] Performed By: #### 5 7021-8 ####[facility] LABCLIA [id number] [place] [address] Monocytes (Bld) [#/Vol] 0.74 10*3/uL Normal <0.87 [facility] Comment on above: Order Comment: Speci men Type: BLOOD SPECIMENOrdering Facility: [facility] Address: [address] [place] [address] Performed By: #### 5 7021-8 ####[facility] LABCLIA [id number] [place] [address] Monocytes/100 WBC (Bld) 10.6 % Normal [facility] Comment on above: Order Comment: Speci men Type: BLOOD SPECIMENOrdering Facility: [facility] Address: [address] [address] Performed By: #### 5 7021-8 ####[facility] LABCLIA [id number] [place] [address] Neutrophils (Bld) [#/Vol] 5.03 10*3/uL Normal 1.45-7.50 [facility] Comment on above: Order Comment: Speci men Type: BLOOD SPECIMENOrdering Facility: [facility] Address: [address] [address] Performed By: #### 5 7021-8 ####[facility] LABCLIA [id number] [place] [address] Neutrophils/100 WBC (Bld) 72.3 % Normal [facility] Comment on above: Order Comment: Speci men Type: BLOOD SPECIMENOrdering Facility: [facility] Address: [address] [address] Performed By: #### 5 7021-8 ####[facility] LABCLIA [id number] [place] [address] Nucleated RBC (Bld) [#/Vol] 10*3/uL Normal <0.01 [facility] Comment on above: Order Comment: Speci men Type: BLOOD SPECIMENOrdering Facility: [facility] Address: [address] [place] [address] Performed By: #### 5 7021-8 ####[facility] LABCLIA [id number] [place] [address] Nucleated RBC/100 WBC (Bld) [Ratio] 0.0 /100 WBC Normal [facility] Comment on above: Order Comment: Speci men Type: BLOOD SPECIMENOrdering Facility: [facility] Address: [address] [place] [address] Performed By: #### 5 7021-8 ####[facility] LABCLIA [id number] [place] [address] Platelet mean volume (Bld) [Entitic vol] 10.0 fL Normal 9.0-12.7 [facility] Comment on above: Order Comment: Speci men Type: BLOOD SPECIMENOrdering Facility: [facility] Address: [address] [place] [address] Performed By: #### 5 7021-8 ####[facility] LABCLIA [id number] [place] [address] Platelets (Bld) [#/Vol] 163 10*3/uL Normal 150-400 [facility] Comment on above: Order Comment: Speci men Type: BLOOD SPECIMENOrdering Facility: [facility] Address: [address] [place] [address] Performed By: #### 5 7021-8 ####[facility] LABIA [id number] [place] [address] RBC (Bld) [#/Vol] 3.91 10*6/uL Low 4.20-6.00 [facility] Comment on above: Order Comment: Speci men Type: BLOOD SPECIMENOrdering Facility: [facility] Address: [address] [place] [address] Performed By: #### 5 7021-8 ####[facility] LABCLIA [id number] [place] [address] WBC (Bld) [#/Vol] 6.96 10*3/uL Normal 3.70-11.00 [facility] Comment on above: Order Comment: Speci men Type: BLOOD SPECIMENOrdering Facility: [facility] Address: [address] [place] [address] Performed By: #### 5 7021-8 ####[facility] LABCLIA [id number] [place] [address] Basophils (Bld) [#/Vol] 0.06 10*3/uL <0.11 k/uL [facility] Basophils/100 WBC (Bld) 0.9 % [facility] Differential cell count method Nom (Bld) Auto [facility] Eosinophils (Bld) [#/Vol] 0.25 10*3/uL <0.46 k/uL [facility] Eosinophils/100 WBC (Bld) 3.6 % [facility] Erythrocyte distribution width (RBC) [Ratio] 17.8 % High 11.5 - 15.0 % [facility] Hematocrit (Bld) [Volume fraction] 39.4 % 39.0 - 51.0 % [facility] Hemoglobin (Bld) [Mass/Vol] 13.2 g/dL 13.0 - 17.0 g/dL [facility] Immature granulocytes (Bld) [#/Vol] 0.05 10*3/uL <0.10 k/uL [facility] Immature granulocytes/100 WBC (Bld) 0.7 % [facility] Lymphocytes (Bld) [#/Vol] 0.83 10*3/uL Low 1.00 - 4.00 k/uL [facility] Lymphocytes/100 WBC (Bld) 11.9 % [facility] MCH (RBC) [Entitic mass] 33.8 pg 26.0 - 34.0 pg [facility] MCHC (RBC) [Mass/Vol] 33.5 g/dL 30.5 - 36.0 g/dL [facility] MCV (RBC) [Entitic vol] 100.8 fL High 80.0 - 100.0 fL [facility] Monocytes (Bld) [#/Vol] 0.74 10*3/uL <0.87 k/uL [facility] Monocytes/100 WBC (Bld) 10.6 % [facility] Neutrophils (Bld) [#/Vol] 5.03 10*3/uL 1.45 - 7.50 k/uL [facility] Neutrophils/100 WBC (Bld) 72.3 % [facility] Nucleated RBC (Bld) [#/Vol] <0.01 k/uL [facility] Nucleated RBC/100 WBC (Bld) [Ratio] 0.0 /100 WBC [facility] Platelet mean volume (Bld) [Entitic vol] 10.0 fL 9.0 - 12.7 fL [facility] Platelets (Bld) [#/Vol] 163 10*3/uL 150 - 400 k/uL [facility] RBC (Bld) [#/Vol] 3.91 10*6/uL Low 4.20 - 6.0 0 m/uL [facility] WBC (Bld) [#/Vol] 6.96 10*3/uL 3.70 - 11.00 k/uL [facility] CNOVSPon 12-25-2022 CNOVSP Normal [facility] Comprehensive metabolic 2000 panelon 12-25-2022 Albumin [Mass/Vol] 4.1 g/dL Normal 3.9-4.9 [facility] Comment on above: Order Comment: Speci men Type: BLOOD SPECIMENOrdering Facility: [facility] Address: [address] [address] Performed By: #### 2 4323-8 ####[facility] LABCLIA [id number] [place] [address] ALP [Catalytic activity/Vol] 83 U/L Normal 38-113 [facility] Comment on above: Order Comment: Speci men Type: BLOOD SPECIMENOrdering Facility: [facility] Address: [address] [address] Performed By: #### 2 4323-8 ####[facility] LABIA [id number] [place] [address] ALT [Catalytic activity/Vol] 7 U/L Low 10-54 [facility] Comment on above: Order Comment: Speci men Type: BLOOD SPECIMENOrdering Facility: [facility] Address: [address] [place] [address] Performed By: #### 2 4323-8 ####[facility] LABCLIA [id number] [place] [address] Anion gap [Moles/Vol] 10 mmol/L Normal 9-18 [facility] Comment on above: Order Comment: Speci men Type: BLOOD SPECIMENOrdering Facility: [facility] Address: [address] [address] Performed By: #### 2 4323-8 ####[facility] LABCLIA [id number] [place] [address] AST [Catalytic activity/Vol] 15 U/L Normal 14-40 [facility] Comment on above: Order Comment: Speci men Type: BLOOD SPECIMENOrdering Facility: [facility] Address: [address] [place] [address] Performed By: #### 2 4323-8 ####[facility] LABCLIA [id number] [place] [address] Bilirubin [Mass/Vol] 0.5 mg/dL Normal 0.2-1.[address] [facility] Comment on above: Order Comment: Speci men Type: BLOOD SPECIMENOrdering Facility: [facility] Address: [address] [place] [address] Performed By: #### 2 4323-8 ####[facility] LABCLIA [id number] [place] [address] Calcium [Mass/Vol] 9.6 mg/dL Normal 8.5-10.2 [facility] Comment on above: Order Comment: Speci men Type: BLOOD SPECIMENOrdering Facility: [facility] Address: [address] [place] [address] Performed By: #### 2 4323-8 ####[facility] LABCLIA [id number] [place] [address] Chloride [Moles/Vol] 105 mmol/L Normal 97-[address] [facility] Comment on above: Order Comment: Speci men Type: BLOOD SPECIMENOrdering Facility: [facility] Address: [address] [place] [address] Performed By: #### 2 4323-8 ####[facility] LABCLIA [id number] [place] [address] CO2 [Moles/Vol] 28 mmol/L Normal 22-30 [facility] Comment on above: Order Comment: Speci men Type: BLOOD SPECIMENOrdering Facility: [facility] Address: [address] [place] [address] Performed By: #### 2 4323-8 ####[facility] LABCLIA [id number] [place] [address] Creatinine [Mass/Vol] 1.23 mg/dL High 0.73-1.22 [facility] Comment on above: Order Comment: Speci men Type: BLOOD SPECIMENOrdering Facility: [facility] Address: [address] [place] [address] Performed By: #### 2 4323-8 ####[facility] LABCLIA [id number] [place] [address] ESTIMATED GLOMERULAR FILTRATION RATE 63 mL/min/1.73m??? Normal >=60 [facility] Comment on above: Order Comment: Speci men Type: BLOOD SPECIMENOrdering Facility: [facility] Address: [address] [place] [address] Result Comment: Rebekah mated Glomerular Filtration Rate [...] actual GFR. Performed By: #### 2 4323-8 ####[facility] LABCLIA [id number] [place] [address] Glucose [Mass/Vol] 86 mg/dL Normal 74-99 [facility] Comment on above: Order Comment: Speci men Type: BLOOD SPECIMENOrdering Facility: [facility] Address: [address] [place] [address] Result Comment: The [place] Diabetes Association (ADA) provides guidance for cutoff [...] Standards of Medical Care in Diabetes 2016, [employer] Diabetes Association. Diabetes Care. 2016.39(Suppl 1). Performed By: #### 2 4323-8 ####[facility] LABCLIA [id number] [place] [address] Potassium [Moles/Vol] 4.0 mmol/L Normal 3.7-5.1 [facility] Comment on above: Order Comment: Speci men Type: BLOOD SPECIMENOrdering Facility: [facility] Address: [address] [place] [address] Performed By: #### 2 4323-8 ####[facility] LABCLIA [id number] [place] [address] Protein [Mass/Vol] 6.2 g/dL Low 6.3-8.0 [facility] Comment on above: Order Comment: Speci men Type: BLOOD SPECIMENOrdering Facility: [facility] Address: [address] [address] Performed By: #### 2 4323-8 ####[facility] LABCLIA [id number] [place] [address] Sodium [Moles/Vol] 143 mmol/L Normal 136-144 [facility] Comment on above: Order Comment: Speci men Type: BLOOD SPECIMENOrdering Facility: [facility] Address: [address] [address] Performed By: #### 2 4323-8 ####[facility] LABCLIA [id number] [place] [address] Urea nitrogen [Mass/Vol] 21 mg/dL Normal 9-24 [facility] Comment on above: Order Comment: Speci men Type: BLOOD SPECIMENOrdering Facility: [facility] Address: [address] [address] Performed By: #### 2 4323-8 ####[facility] LABCLIA [id number] [place] [address] Albumin [Mass/Vol] 4.1 g/dL 3.9 - 4.9 g/dL [facility] ALP [Catalytic activity/Vol] 83 U/L 38 - 113 [facility] ALT [Catalytic activity/Vol] 7 U/L Low 10 - 54 U/L [facility] Anion gap [Moles/Vol] 10 mmol/L 9 - 18 mmol/L [facility] AST [Catalytic activity/Vol] 15 U/L 14 - 40 U/L [facility] Bilirubin [Mass/Vol] 0.5 mg/dL 0.2 - 1 .3 mg/dL [facility] Calcium [Mass/Vol] 9.6 mg/dL 8.5 - 10. 2 mg/dL [facility] Chloride [Moles/Vol] 105 mmol/L 97 - 10 5 mmol/L [facility] CO2 [Moles/Vol] 28 mmol/L 22 - 30 mmol/L [facility] Creatinine [Mass/Vol] 1.23 mg/dL High 0.73 - 1.22 mg/dL [facility] Estimated Glomerular Filtration Rate 63 mL/min/1.73m >=60 mL/min/1.73 m [facility] Glucose [Mass/Vol] 86 mg/dL 74 - 99 mg/dL [facility] Potassium [Moles/Vol] 4.0 mmol/L 3.7 - 5.1 mmol/L [facility] Protein [Mass/Vol] 6.2 g/dL Low 6.3 - 8.0 g/dL [facility] Sodium [Moles/Vol] 143 mmol/L 136 - 144 mmol/L [facility] Urea nitrogen [Mass/Vol] 21 mg/dL 9 - 24 mg/dL [facility] CNCNPATEDon 12-20-2022 CNCNPATED Normal [facility] HISTORY PHYSICALon HISTORY PHYSICAL HNO ID: [id number] Author: Mark Valladares MD Service: Interventional Radiology [...] DATE: December 20, 2022 TIME: 9:48 AM [facility] IR FLU GD JERMAINE CVA PLACEon IR FLU GD JERMAINE CVA PLACE * * *Final Report* * * DATE OF EXAM: Dec 20 2022 10:30AM A 7444 - IR FLU GD JERMAINE CVA [...] report: SIR_Port_v2 Th (more content not included)... [facility] IR PORTOCATH PLACEMENTon IR PORTOCATH PLACEMENT * * *Final Report* * * DATE OF EXAM: Dec 20 2022 10:30AM [facility] 8966 - IR PORTOCATH PLACEMENT / PROCEDURE [...] report: SIR_Port_v2 The (more content not included)... Normal [facility] IR US VASCULAR ACCESS GUIDEo n 12-20-2022 IR US VASCULAR ACCESS GUIDE * * *Final Report* * * DATE OF EXAM: Dec 20 2022 10:30AM [facility] 7765 - IR US VASCULAR ACCESS GUIDE / PROCEDURE REASON: [...] Standardized report: SIR_Port_v2 (more content not included)... [facility] Yaron 12-19-2022 [facility]ERVAT [facility] ([id number]) 1950 M Date Time Provider Department 12/19/22 MILTON WARD During your visit today, we recorded the following information about you: Milton Ward RN 12/19/2022 12:16 PM Signed You are scheduled for a Mediport placement, On 12/20/2022. You are to arrive at 0900 am and Report to [facility]: [facility]: Enter through [facility] entrance. Proceed [...] if they are not done at a [facility] facility. . Diver'S Tender/Transportation: How will you be arriving for your procedure? Private car. You will need a responsible adult to accompany you to and from the procedure. Your telephone directory distributor driver is required to stay with you until you are taken into the procedure room. Call for any questions [phone] Allergies As of Date: 12/19/2022 (No Known [...] Encounter Status:Closed by MILTON WARD on 12/19/22 [facility] PT panel Coag (PPP)on 2022 INR Coag (PPP) [Relative time] 1.0 {INR} 0.9 - 1.3 [facility] PT Coag (PPP) [Time] 10.7 s 9.7 - 1 3.0 sec [facility] INR Coag (PPP) [Relative time] 1.0 {INR} Normal 0.9-1.3 [facility] Comment on above: Order Comment: Nazario brooks Type: BLOOD SPECIMENOrdering Facility: [facility] Address: [address] [id number] Result Comment: Myrna min K Antagonist (VKA) Therapeutic Range: INR 2 to 3 (Target INR of 2.5)Note: For patients treated with VKA drugs, such as warfarin, the [place] [employer] 2012 Guideline recommends [...] 2.5 to 3.5 (target INR of 3).Dmitriy ONEILL, et al. Chest 2012, 141:7S-47SNishimheather RA, et al. [facility] 2017, 70: 252-289 Performed By: #### 3 4528-0 ####[facility] LABIA [id number] [place] [address] [place] PT Coag (PPP) [Time] 10.7 s Normal 9.7-13.0 [facility] Comment on above: Order Comment: Nazario brooks Type: BLOOD SPECIMENOrdering Facility: [facility] Address: [place] [address] Performed By: #### 3 4528-0 ####[facility] LABIA [id number] [place] [address] [place] CEA BLDon 12-18-2022 Carcinoembryonic Ag [Mass/Vol] 1.7 ng/mL <=2.9 ng/mL [facility] CNPNon 12-18-2022 CNPN Normal [facility] Consultation Noteon 12-18-19 Consultation Note [id number]#1.00C D:127 Normal [facility] CBC W Auto Differential pane l (Bld)on 12-17-2022 Basophils (Bld) [#/Vol] 0.04 10*3/uL Normal <0.11 [facility] Comment on above: Order Comment: Speci men Type: BLOOD SPECIMENOrdering Facility: [facility] Address: [address] [place] [address] Performed By: #### 5 7021-8 ####[facility] LABCLIA [id number] [place] [address] Basophils/100 WBC (Bld) 0.7 % Normal [facility] Comment on above: Order Comment: Speci men Type: BLOOD SPECIMENOrdering Facility: [facility] Address: [address] [place] [address] Performed By: #### 5 7021-8 ####[facility] LABCLIA [id number] [place] [address] Differential cell count method Nom (Bld) Auto Normal [facility] Comment on above: Order Comment: Speci men Type: BLOOD SPECIMENOrdering Facility: [facility] Address: [address] [place] [address] Performed By: #### 5 7021-8 ####[facility] LABCLIA [id number] [place] [address] Eosinophils (Bld) [#/Vol] 0.13 10*3/uL Normal <0.46 [facility] Comment on above: Order Comment: Speci men Type: BLOOD SPECIMENOrdering Facility: [facility] Address: [address] [place] [address] Performed By: #### 5 7021-8 ####[facility] LABCLIA [id number] [place] [address] Eosinophils/100 WBC (Bld) 2.2 % Normal [facility] Comment on above: Order Comment: Speci men Type: BLOOD SPECIMENOrdering Facility: [facility] Address: [address] [address] Performed By: #### 5 7021-8 ####[facility] LABCLIA [id number] [place] [address] Erythrocyte distribution width (RBC) [Ratio] 18.9 % High 11.5-15.0 [facility] Comment on above: Order Comment: Speci men Type: BLOOD SPECIMENOrdering Facility: [facility] Address: [address] [place] [address] Performed By: #### 5 7021-8 ####[facility] LABCLIA [id number] [place] [address] Hematocrit (Bld) [Volume fraction] 38.5 % Low 39.0-51.0 [facility] Comment on above: Order Comment: Speci men Type: BLOOD SPECIMENOrdering Facility: [facility] Address: [address] [place] [address] Performed By: #### 5 7021-8 ####[facility] LABIA [id number] [place] [address] Hemoglobin (Bld) [Mass/Vol] 12.9 g/dL Low 13.0-17.0 [facility] Comment on above: Order Comment: Speci men Type: BLOOD SPECIMENOrdering Facility: [facility] Address: [address] [place] [address] Performed By: #### 5 7021-8 ####[facility] LABIA [id number] [place] [address] Immature granulocytes (Bld) [#/Vol] 0.05 10*3/uL Normal <0.10 [facility] Comment on above: Order Comment: Speci men Type: BLOOD SPECIMENOrdering Facility: [facility] Address: [address] [place] [address] Performed By: #### 5 7021-8 ####[facility] LABCLIA [id number] [place] [address] Immature granulocytes/100 WBC (Bld) 0.9 % Normal [facility] Comment on above: Order Comment: Speci men Type: BLOOD SPECIMENOrdering Facility: [facility] Address: [address] [place] [address] Performed By: #### 5 7021-8 ####[facility] LABCLIA [id number] [place] [address] Lymphocytes (Bld) [#/Vol] 0.63 10*3/uL Low 1.00-4.00 [facility] Comment on above: Order Comment: Speci men Type: BLOOD SPECIMENOrdering Facility: [facility] Address: [address] [place] [address] Performed By: #### 5 7021-8 ####[facility] LABCLIA [id number] [place] [address] Lymphocytes/100 WBC (Bld) 10.9 % Normal [facility] Comment on above: Order Comment: Speci men Type: BLOOD SPECIMENOrdering Facility: [facility] Address: [address] [place] [address] Performed By: #### 5 7021-8 ####[facility] LABCLIA [id number] [place] [address] MCH (RBC) [Entitic mass] 34.0 pg Normal 26.0-34.0 [facility] Comment on above: Order Comment: Speci men Type: BLOOD SPECIMENOrdering Facility: [facility] Address: [address] [place] [address] Performed By: #### 5 7021-8 ####[facility] LABCLIA [id number] [place] [address] MCHC (RBC) [Mass/Vol] 33.5 g/dL Normal 30.5-36.0 [facility] Comment on above: Order Comment: Speci men Type: BLOOD SPECIMENOrdering Facility: [facility] Address: [address] [place] [address] Performed By: #### 5 7021-8 ####[facility] LABCLIA [id number] [place] [address] MCV (RBC) [Entitic vol] 101.6 fL High 80.0-100.0 [facility] Comment on above: Order Comment: Speci men Type: BLOOD SPECIMENOrdering Facility: [facility] Address: [address] [place] [address] Performed By: #### 5 7021-8 ####[facility] LABCLIA [id number] [place] [address] Monocytes (Bld) [#/Vol] 0.64 10*3/uL Normal <0.87 [facility] Comment on above: Order Comment: Speci men Type: BLOOD SPECIMENOrdering Facility: [facility] Address: [address] [place] [address] Performed By: #### 5 7021-8 ####[facility] LABCLIA [id number] [place] [address] Monocytes/100 WBC (Bld) 11.1 % Normal [facility] Comment on above: Order Comment: Speci men Type: BLOOD SPECIMENOrdering Facility: [facility] Address: [address] [place] [address] Performed By: #### 5 7021-8 ####[facility] LABCLIA [id number] [place] [address] Neutrophils (Bld) [#/Vol] 4.30 10*3/uL Normal 1.45-7.50 [facility] Comment on above: Order Comment: Speci men Type: BLOOD SPECIMENOrdering Facility: [facility] Address: [address] [place] [address] Performed By: #### 5 7021-8 ####[facility] LABCLIA [id number] [place] [address] Neutrophils/100 WBC (Bld) 74.2 % Normal [facility] Comment on above: Order Comment: Speci men Type: BLOOD SPECIMENOrdering Facility: [facility] Address: [address] [place] [address] Performed By: #### 5 7021-8 ####[facility] LABCLIA [id number] [place] [address] Nucleated RBC (Bld) [#/Vol] 10*3/uL Normal <0.01 [facility] Comment on above: Order Comment: Speci men Type: BLOOD SPECIMENOrdering Facility: [facility] Address: [address] [place] [address] Performed By: #### 5 7021-8 ####[facility] LABIA [id number] [place] [address] Nucleated RBC/100 WBC (Bld) [Ratio] 0.0 /100 WBC Normal [facility] Comment on above: Order Comment: Speci men Type: BLOOD SPECIMENOrdering Facility: [facility] Address: [address] [place] [address] Performed By: #### 5 7021-8 ####[facility] LABCLIA [id number] [place] [address] Platelet mean volume (Bld) [Entitic vol] 10.2 fL Normal 9.0-12.7 [facility] Comment on above: Order Comment: Speci men Type: BLOOD SPECIMENOrdering Facility: [facility] Address: [address] [place] [address] Performed By: #### 5 7021-8 ####[facility] LABIA [id number] [place] [address] Platelets (Bld) [#/Vol] 200 10*3/uL Normal 150-400 [facility] Comment on above: Order Comment: Speci men Type: BLOOD SPECIMENOrdering Facility: [facility] Address: [address] [place] [address] Performed By: #### 5 7021-8 ####[facility] LABIA [id number] [place] [address] RBC (Bld) [#/Vol] 3.79 10*6/uL Low 4.20-6.00 [facility] Comment on above: Order Comment: Speci men Type: BLOOD SPECIMENOrdering Facility: [facility] Address: [address] [place] [address] Performed By: #### 5 7021-8 ####[facility] LABIA [id number] [place] [address] WBC (Bld) [#/Vol] 5.79 10*3/uL Normal 3.70-11.00 [facility] Comment on above: Order Comment: Speci men Type: BLOOD SPECIMENOrdering Facility: [facility] Address: [address] [place] [address] Performed By: #### 5 7021-8 ####[facility] LABIA [id number] [place] [address] Basophils (Bld) [#/Vol] 0.04 10*3/uL <0.11 k/uL [facility] Basophils/100 WBC (Bld) 0.7 % [facility] Differential cell count method Nom (Bld) Auto [facility] Eosinophils (Bld) [#/Vol] 0.13 10*3/uL <0.46 k/uL [facility] Eosinophils/100 WBC (Bld) 2.2 % [facility] Erythrocyte distribution width (RBC) [Ratio] 18.9 % High 11.5 - 15.0 % [facility] Hematocrit (Bld) [Volume fraction] 38.5 % Low 39.0 - 51.0 % [facility] Hemoglobin (Bld) [Mass/Vol] 12.9 g/dL Low 13.0 - 17.0 g/dL [facility] Immature granulocytes (Bld) [#/Vol] 0.05 10*3/uL <0.10 k/uL [facility] Immature granulocytes/100 WBC (Bld) 0.9 % [facility] Lymphocytes (Bld) [#/Vol] 0.63 10*3/uL Low 1.00 - 4.00 k/uL [facility] Lymphocytes/100 WBC (Bld) 10.9 % [facility] MCH (RBC) [Entitic mass] 34.0 pg 26.0 - 34.0 pg [facility] MCHC (RBC) [Mass/Vol] 33.5 g/dL 30.5 - 36.0 g/dL [facility] MCV (RBC) [Entitic vol] 101.6 fL High 80.0 - 100.0 fL [facility] Monocytes (Bld) [#/Vol] 0.64 10*3/uL <0.87 k/uL [facility] Monocytes/100 WBC (Bld) 11.1 % [facility] Neutrophils (Bld) [#/Vol] 4.30 10*3/uL 1.45 - 7.50 k/uL [facility] Neutrophils/100 WBC (Bld) 74.2 % [facility] Nucleated RBC (Bld) [#/Vol] <0.01 k/uL [facility] Nucleated RBC/100 WBC (Bld) [Ratio] 0.0 /100 WBC [facility] Platelet mean volume (Bld) [Entitic vol] 10.2 fL 9.0 - 12.7 fL [facility] Platelets (Bld) [#/Vol] 200 10*3/uL 150 - 400 k/uL [facility] RBC (Bld) [#/Vol] 3.79 10*6/uL Low 4.20 - 6.0 0 m/uL [facility] WBC (Bld) [#/Vol] 5.79 10*3/uL 3.70 - 11.00 k/uL [facility] CEA SerPl-mCncon 12-17-2022 Carcinoembryonic Ag [Mass/Vol] 1.7 ng/mL Normal <=2.9 [facility] Comment on above: Order Comment: Speci men Type: BLOOD SPECIMENOrdering Facility: [facility] Address: [address] [place] [phone] Result Comment: Carc inoembryonic antigen test is [...] used interchangeably. Performed By: #### 2 039-6 ####[facility] LABCLIA [id number] [facility] [place] [address] [place] CNOVSPon 12-17-2022 CNOVSP Normal [facility] CNPNon 12-17-2022 CNPN Normal [facility] Comprehensive metabolic 2000 panelon 12-17-2022 Albumin [Mass/Vol] 4.0 g/dL Normal 3.9-4.9 [facility] Comment on above: Order Comment: Speci men Type: BLOOD SPECIMENOrdering Facility: [facility] Address: [address] [address] Performed By: #### 2 4323-8 ####[facility] LABCLIA [id number] [place] [address] ALP [Catalytic activity/Vol] 79 U/L Normal 38-113 [facility] Comment on above: Order Comment: Speci men Type: BLOOD SPECIMENOrdering Facility: [facility] Address: [address] [address] Performed By: #### 2 4323-8 ####[facility] LABCLIA [id number] [place] [address] ALT [Catalytic activity/Vol] 8 U/L Low 10-54 [facility] Comment on above: Order Comment: Speci men Type: BLOOD SPECIMENOrdering Facility: [facility] Address: [address] [address] Performed By: #### 2 4323-8 ####[facility] LABCLIA [id number] [place] [address] Anion gap [Moles/Vol] 5 mmol/L Low 9-18 [facility] Comment on above: Order Comment: Speci men Type: BLOOD SPECIMENOrdering Facility: [facility] Address: [address] [address] Performed By: #### 2 4323-8 ####[facility] LABCLIA [id number] [place] [address] AST [Catalytic activity/Vol] 14 U/L Normal 14-40 [facility] Comment on above: Order Comment: Speci men Type: BLOOD SPECIMENOrdering Facility: [facility] Address: [address] [address] Performed By: #### 2 4323-8 ####[facility] LABCLIA [id number] [place] [address] Bilirubin [Mass/Vol] 0.4 mg/dL Normal 0.2-1.[address] [facility] Comment on above: Order Comment: Speci men Type: BLOOD SPECIMENOrdering Facility: [facility] Address: [address] [place] [address] Performed By: #### 2 4323-8 ####[facility] LABCLIA [id number] [place] [address] Calcium [Mass/Vol] 9.1 mg/dL Normal 8.5-10.2 [facility] Comment on above: Order Comment: Speci men Type: BLOOD SPECIMENOrdering Facility: [facility] Address: [address] [place] [address] Performed By: #### 2 4323-8 ####[facility] LABCLIA [id number] [place] [address] Chloride [Moles/Vol] 107 mmol/L High 97-[address] [facility] Comment on above: Order Comment: Speci men Type: BLOOD SPECIMENOrdering Facility: [facility] Address: [address] [place] [address] Performed By: #### 2 4323-8 ####[facility] LABCLIA [id number] [place] [address] CO2 [Moles/Vol] 28 mmol/L Normal 22-30 [facility] Comment on above: Order Comment: Speci men Type: BLOOD SPECIMENOrdering Facility: [facility] Address: [address] [place] [address] Performed By: #### 2 4323-8 ####[facility] LABCLIA [id number] [place] [address] Creatinine [Mass/Vol] 1.22 mg/dL Normal 0.73-1.22 [facility] Comment on above: Order Comment: Speci men Type: BLOOD SPECIMENOrdering Facility: [facility] Address: [address] [place] [address] Performed By: #### 2 4323-8 ####[facility] LABCLIA [id number] [place] [address] ESTIMATED GLOMERULAR FILTRATION RATE 64 mL/min/1.73m??? Normal >=60 [facility] Comment on above: Order Comment: Speci men Type: BLOOD SPECIMENOrdering Facility: [facility] Address: [address] [place] [address] Result Comment: Rebekah mated Glomerular Filtration Rate [...] actual GFR. Performed By: #### 2 4323-8 ####[facility] LABCLIA [id number] [place] [address] Glucose [Mass/Vol] 84 mg/dL Normal 74-99 [facility] Comment on above: Order Comment: Isaii todd Type: BLOOD SPECIMENOrdering Facility: [facility] Address: [address] [place] [address] Result Comment: The [place] Diabetes Association (ADA) provides guidance for cutoff [...] Standards of Medical Care in Diabetes 2016, [place] [employer]. Diabetes Care. 2016.39(Suppl 1). Performed By: #### 2 4323-8 ####[facility] LABCLIA [id number] [place] [address] Potassium [Moles/Vol] 4.0 mmol/L Normal 3.7-5.1 [facility] Comment on above: Order Comment: Speci men Type: BLOOD SPECIMENOrdering Facility: [facility] Address: [address] [place] [address] Performed By: #### 2 4323-8 ####[facility] LABCLIA [id number] [place] [address] Protein [Mass/Vol] 6.2 g/dL Low 6.3-8.0 [facility] Comment on above: Order Comment: Speci men Type: BLOOD SPECIMENOrdering Facility: [facility] Address: [address] [place] [address] Performed By: #### 2 4323-8 ####[facility] LABCLIA [id number] [place] [address] Sodium [Moles/Vol] 140 mmol/L Normal 136-144 [facility] Comment on above: Order Comment: Speci men Type: BLOOD SPECIMENOrdering Facility: [facility] Address: [address] [address] Performed By: #### 2 4323-8 ####[facility] LABCLIA [id number] [place] [address] Urea nitrogen [Mass/Vol] 19 mg/dL Normal 9-24 [facility] Comment on above: Order Comment: Speci men Type: BLOOD SPECIMENOrdering Facility: [facility] Address: [place] [address] Performed By: #### 2 4323-8 ####[facility] LABCLIA [id number] [place] [address] Albumin [Mass/Vol] 4.0 g/dL 3.9 - 4.9 g/dL [facility] ALP [Catalytic activity/Vol] 79 U/L 38 - 113 U/L [facility] ALT [Catalytic activity/Vol] 8 U/L Low 10 - 54 U/L [facility] Anion gap [Moles/Vol] 5 mmol/L Low 9 - 18 mmol/L [facility] AST [Catalytic activity/Vol] 14 U/L 14 - 40 U/L [facility] Bilirubin [Mass/Vol] 0.4 mg/dL 0.2 - 1 .3 mg/dL [facility] Calcium [Mass/Vol] 9.1 mg/dL 8.5 - 10. 2 mg/dL [facility] Chloride [Moles/Vol] 107 mmol/L High 97 - 10 5 mmol/L [facility] CO2 [Moles/Vol] 28 mmol/L 22 - 30 mmol/L [facility] Creatinine [Mass/Vol] 1.22 mg/dL 0.73 - 1.22 mg/dL [facility] Estimated Glomerular Filtration Rate 64 mL/min/1.73m >=60 mL/min/1.73 m [facility] Glucose [Mass/Vol] 84 mg/dL 74 - 99 mg/dL [facility] Potassium [Moles/Vol] 4.0 mmol/L 3.7 - 5.1 mmol/L [facility] Protein [Mass/Vol] 6.2 g/dL Low 6.3 - 8.0 g/dL [facility] Sodium [Moles/Vol] 140 mmol/L 136 - 144 mmol/L [facility] Urea nitrogen [Mass/Vol] 19 mg/dL 9 - 24 mg/dL [facility] Consultation Noteon 12-14-19 Consultation Note [id number]#1.00C D:127 Normal [facility] CNOVon 12-10-2022 CNOV Normal [facility] CT ABD/PEL W IVCONon 023 CT ABD/PEL W IVCON Normal [facility] CT CHEST W IVCONon 3 CT CHEST W IVCON Normal [facility] Consultation Noteon 11-24-19 Consultation Note [id number]#1.00C D:127 Normal [facility] CBC w/Indiceson 11-16-2022 Erythrocyte distribution width (RBC) [Ratio] 18.5 % High 10.9-14.2 [facility] Comment on above: Performed By: #### 2 465930, 48329730, 7916543, 65629688 ####[facility] [address] [place] [address] Hematocrit (Bld) [Volume fraction] 39.8 % Normal 37.7-49.0 [facility] Comment on above: Performed By: #### 2 431651, 36207048, 7242219, 36109561 ####[facility] [address] [place] [address] Hemoglobin (Bld) [Mass/Vol] 13.0 g/dL Low 13.5-17.5 [facility] Comment on above: Performed By: #### 2 867014, 11879853, 6239146, 78458438 ####[facility] [address] [place] [address] MCH (RBC) [Entitic mass] 32.3 pg Normal 27.0-34.0 [facility] Comment on above: Performed By: #### 2 413391, 91184004, 5969121, 47416479 ####[facility] [address] [place] [address] MCHC (RBC) [Mass/Vol] 32.6 g/dL Normal 31.4-36.0 [facility] Comment on above: Performed By: #### 2 477702, 03892482, 7265086, 61510089 ####[address] [place] [address] MCV (RBC) [Entitic vol] 99.3 fL Normal 80.0-100.0 [facility] Comment on above: Performed By: #### 2 578193, 57424133, 6281100, 50862259 ####[address] [address] Platelet mean volume (Bld) [Entitic vol] 8.3 fL Normal 6.4-10.8 [facility] Comment on above: Performed By: #### 2 744215, 31863363, 6356639, 24008488 ####[address] [address] Platelets (Bld) [#/Vol] 178.0 E9/L Normal 150.0-500.0 [facility] Comment on above: Performed By: #### 2 950598, 77263032, 3888734, 94148876 ####[address] [address] RBC (Bld) [#/Vol] 4.0 E12/L Low 4.3-5.9 [facility] Comment on above: Performed By: #### 2 470688, 65559635, 3405884, 77388579 ####[address] [address] WBC corrected for nucl RBC Auto (Bld) [#/Vol] 6.4 E9/L Normal 4.0-11.0 [facility] Comment on above: Performed By: #### 2 685046, 02422468, 9057563, 82309406 ####[address] [address] CHEMISTRYOrdered By: SYSTEM SYSTEM on 11-16-2022 Albumin [...] rate/Area] mL/min/1.73 m2 Normal >=59mL/min/ 1.73 m2 [facility] S GFR/1.73 sq M.predicted among non-blacks MDRD (S/P/Bld) [Vol rate/Area] 50 mL/min/1.73 m2 Low >=59mL/min/ 1.73 m2 [facility] S Globulin (S) [Mass/Vol] 2.3 g/dL Normal 1.4 - 4.0 gm/dL [facility] Glucose [Mass/Vol] 102 mg/dL Normal 55 - 199 mg/dL [facility] Potassium [Moles/Vol] 3.7 mmol/L Normal 3.5 - 5.3 mmol/L [facility] Protein [Mass/Vol] 6.2 g/dL Normal 6.0 - 7.8 gm/dL [facility] Sodium [Moles/Vol] 142 mmol/L Normal 135 - 145 mmol/L [facility] Urea nitrogen [Mass/Vol] 17 mg/dL Normal 5 - 21 mg/dL [facility] Urea nitrogen/Creatinine [Mass ratio] 12 mg/mg Normal 10 - 20 [facility] Remisol CMPon 11-16-2022 Albumin [Mass/Vol] 3.9 g/dL Normal 3.3-5.0 [facility] Comment on above: Performed By: #### 2 040089, 55329023, 4340704, 68498832 ####[facility] [address] [place] [address] Albumin/Globulin (S) [Mass conc ratio] 1.7 Normal 1.1-2.2 [facility] Comment on above: Performed By: #### 2 065698, 89217925, 7396078, 23315378 ####[facility] [address] [place] [address] ALP [Catalytic activity/Vol] 58 Int._Unit/L Normal 21-98 [facility] Comment on above: Performed By: #### 2 699635, 36591124, 2741911, 98023126 ####[facility] [address] [place] [address] ALT No additional P-5'-P [Catalytic activity/Vol] 16 Int._Unit/L Normal 6-46 [facility] Comment on above: Performed By: #### 2 304054, 06876594, 7990699, 86437028 ####[facility] [address] [place] [address] Anion gap [Moles/Vol] 10 mmol/L Normal 6-16 [facility] Comment on above: Performed By: #### 2 082735, 61208170, 5535524, 89423348 ####[facility] [address] [place] [address] AST [Catalytic activity/Vol] 19 Int._Unit/L Normal 5-43 [facility] Comment on above: Performed By: #### 2 062268, 04876859, 6927881, 69544894 ####[facility] [address] [place] [address] Bilirubin [Mass/Vol] 1.0 mg/dL Normal 0.0-1.1 [facility] Comment on above: Performed By: #### 2 740626, 59990840, 3975943, 59176329 ####[facility] [address] [place] [address] Calcium [Mass/Vol] 9.3 mg/dL Normal 8.9-11.1 [facility] Comment on above: Performed By: #### 2 752341, 12685841, 3166796, 62134450 ####[facility] [address] [place] [address] Chloride [Moles/Vol] 105 mmol/L Normal 101-111 [facility] Comment on above: Performed By: #### 2 992364, 51273187, 8212806, 85053911 ####[facility] [address] [place] [address] CO2 [Moles/Vol] 31 mmol/L Normal 21-31 [facility] Comment on above: Performed By: #### 2 244574, 02965699, 6885622, 59138105 ####[facility] [address] [place] [address] Creatinine [Mass/Vol] 1.4 mg/dL High 0.5-1.3 [facility] Comment on above: Performed By: #### 2 908131, 79597140, 1342272, 85766607 ####[facility] [address] [place] [address] Globulin (S) [Mass/Vol] 2.3 g/dL Normal 1.4-4.0 [facility] Comment on above: Performed By: #### 2 395131, 88408458, 7138231, 93450284 ####[facility] [address] [place] [address] Glucose [Mass/Vol] 102 mg/dL Normal 55-199 [facility] Comment on above: Result Comment: If t his glucose result represents a fasting glucose, interpretation should refer to the following reference range: 55-99 mg/dL Performed By: #### 2 262954, 27291778, 9673123, 93645075 ####[facility] [address] [place] [address] Potassium [Moles/Vol] 3.7 mmol/L Normal 3.5-5.3 [facility] Comment on above: Performed By: #### 2 190041, 03449292, 1101715, 48082355 ####[facility] [address] [place] [address] Protein [Mass/Vol] 6.2 g/dL Normal 6.0-7.8 [facility] Comment on above: Performed By: #### 2 884963, 83528000, 4633502, 02729913 ####[facility] [address] [place] [address] Sodium [Moles/Vol] 142 mmol/L Normal 135-145 [facility] Comment on above: Performed By: #### 2 591957, 22360704, 6616140, 62343347 ####[facility] [address] [place] [address] Urea nitrogen [Mass/Vol] 17 mg/dL Normal 5-21 [facility] Comment on above: Performed By: #### 2 257495, 42135666, 9595640, 29640567 ####[facility] [address] [place] [address] Urea nitrogen/Creatinine [Mass ratio] 12 No Units Normal 10-20 [facility] Comment on above: Performed By: #### 2 624144, 26125884, 9319401, 99839193 ####[facility] [address] [place] [address] HEMATOLOGYOrdered By: Sonam Aponte on 11-16-2022 Erythrocyte distribution width (RBC) [Ratio] 18.5 % High 10.9 - 14.2 % [facility] Hematocrit (Bld) [Volume fraction] 39.8 % Normal 37.7 - 49.0 % [facility] Hemoglobin (Bld) [Mass/Vol] 13.0 g/dL Low [...] Sed Rate Automated 8 mm/hr Normal 0-19 [facility] Comment on above: Performed By: #### 2 935371, 70419934, 0598265, 46086430 ####[facility] [address] [place] [address] eGFRon 11-16-2022 GFR/1.73 sq M.predicted among blacks MDRD (S/P/Bld) [Vol rate/Area] mL/min/{1.73_m2} Normal >=59 [facility] Comment on above: Order Comment: Order added by Discern Expert. Result Comment: eGFR is race adjusted. AA=. Performed By: #### 2 780509, 65262503, 2406099, 37509451 ####[facility] [address] [place] [address] GFR/1.73 sq M.predicted among non-blacks MDRD (S/P/Bld) [Vol rate/Area] 50 mL/min/1.73 m2 Low >=59 [facility] Comment on above: Order Comment: Order added by Discern Expert. Result Comment: Vehicle Operator Technician bethany kidney disease could be indicated at eGFR's of less than 60 mL/min/1.73m2. Kidney failure is indicated at less than 15 mL/min/1.73m2. Performed By: #### 2 202764, 90666680, 0523852, 94940834 ####[facility] [address] [place] [address] CBC W Auto Differential pane l (Bld)on 11-08-2022 Basophils (Bld) [#/Vol] 0.04 10*3/uL <0.11 k/uL [facility] Basophils/100 WBC (Bld) 0.7 % [facility] Differential cell count method Nom (Bld) Auto [facility] Eosinophils (Bld) [#/Vol] 0.18 10*3/uL <0.46 k/uL [facility] Eosinophils/100 WBC (Bld) 3.1 % [facility] Erythrocyte distribution width (RBC) [Ratio] 17.3 % High 11.5 - 15.0 % [facility] Hematocrit (Bld) [Volume fraction] 36.9 % Low 39.0 - 51.0 % [facility] Hemoglobin (Bld) [Mass/Vol] 12.3 g/dL Low 13.0 - 17.0 g/dL [facility] Immature granulocytes (Bld) [#/Vol] 0.04 10*3/uL <0.10 k/uL [facility] Immature granulocytes/100 WBC (Bld) 0.7 % [facility] Lymphocytes (Bld) [#/Vol] 0.34 10*3/uL Low 1.00 - 4.00 k/uL [facility] Lymphocytes/100 WBC (Bld) 5.9 % [facility] MCH (RBC) [Entitic mass] 32.5 pg 26.0 - 34.0 pg [facility] MCHC (RBC) [Mass/Vol] 33.3 g/dL 30.5 - 36.0 g/dL [facility] MCV (RBC) [Entitic vol] 97.4 fL 80.0 - 100.0 fL [facility] Monocytes (Bld) [#/Vol] 0.55 10*3/uL <0.87 k/uL [facility] Monocytes/100 WBC (Bld) 9.5 % [facility] Neutrophils (Bld) [#/Vol] 4.62 10*3/uL 1.45 - 7.50 k/uL [facility] Neutrophils/100 WBC (Bld) 80.1 % [facility] Nucleated RBC (Bld) [#/Vol] <0.01 k/uL [facility] Nucleated RBC/100 WBC (Bld) [Ratio] 0.0 /100 WBC [facility] Platelet mean volume (Bld) [Entitic vol] 9.3 fL 9.0 - 12.7 fL [facility] Platelets (Bld) [#/Vol] 157 10*3/uL 150 - 400 k/uL [facility] RBC (Bld) [#/Vol] 3.79 10*6/uL Low 4.20 - 6.0 0 m/uL [facility] WBC (Bld) [#/Vol] 5.77 10*3/uL 3.70 - 11.00 k/uL [facility] Consultation Noteon 11-02-19 Consultation Note [id number] D:127 Normal [facility] CBC W Auto Differential pane l (Bld)on 10-11-2022 Basophils (Bld) [#/Vol] <0.11 k/uL [facility] Basophils/100 WBC (Bld) 0.1 % [facility] Differential cell count method Nom (Bld) Auto [facility] Eosinophils (Bld) [#/Vol] <0.46 k/uL [facility] Eosinophils/100 WBC (Bld) 0.0 % [facility] Erythrocyte distribution width (RBC) [Ratio] 15.5 % High 11.5 - 15.0 % [facility] Hematocrit (Bld) [Volume fraction] 42.6 % 39.0 - 51.0 % [facility] Hemoglobin (Bld) [Mass/Vol] 14.0 g/dL 13.0 - 17.0 g/dL [facility] Immature granulocytes (Bld) [#/Vol] 0.12 10*3/uL High <0.10 k/uL [facility] Immature granulocytes/100 WBC (Bld) 0.6 % [facility] Lymphocytes (Bld) [#/Vol] 0.82 10*3/uL Low 1.00 - 4.00 k/uL [facility] Lymphocytes/100 WBC (Bld) 4.0 % [facility] MCH (RBC) [Entitic mass] 31.0 pg 26.0 - 34.0 pg [facility] MCHC (RBC) [Mass/Vol] 32.9 g/dL 30.5 - 36.0 g/dL [facility] MCV (RBC) [Entitic vol] 94.5 fL 80.0 - 100.0 fL [facility] Monocytes (Bld) [#/Vol] 1.01 10*3/uL High <0.87 k/uL [facility] Monocytes/100 WBC (Bld) 4.9 % [facility] Neutrophils (Bld) [#/Vol] 18.55 10*3/uL High 1.45 - 7.50 k/uL [facility] Neutrophils/100 WBC (Bld) 90.4 % [facility] Nucleated RBC (Bld) [#/Vol] <0.01 k/uL [facility] Nucleated RBC/100 WBC (Bld) [Ratio] 0.0 /100 WBC [facility] Platelet mean volume (Bld) [Entitic vol] 10.9 fL 9.0 - 12.7 fL [facility] Platelets (Bld) [#/Vol] 207 10*3/uL 150 - 400 k/uL [facility] RBC (Bld) [#/Vol] 4.51 10*6/uL 4.20 - 6.0 0 m/uL [facility] WBC (Bld) [#/Vol] 20.52 10*3/uL High 3.70 - 11.00 k/uL [facility] Comprehensive metabolic 2000 panelon 10-11-2022 Albumin [Mass/Vol] 3.9 g/dL 3.9 - 4.9 g/dL [facility] ALP [Catalytic activity/Vol] 80 U/L 38 - 113 U/L [facility] ALT [Catalytic activity/Vol] 10 U/L 10 - 54 U/L [facility] Anion gap [Moles/Vol] 11 mmol/L 9 - 18 mmol/L [facility] AST [Catalytic activity/Vol] 11 U/L Low 14 - 40 U/L [facility] Bilirubin [Mass/Vol] 1.0 mg/dL 0.2 - 1 .3 mg/dL [facility] Calcium [Mass/Vol] 9.5 mg/dL 8.5 - 10. 2 mg/dL [facility] Chloride [Moles/Vol] 104 mmol/L 97 - 10 5 mmol/L [facility] CO2 [Moles/Vol] 26 mmol/L 22 - 30 mmol/L [facility] Creatinine [Mass/Vol] 1.50 mg/dL High 0.73 - 1.22 mg/dL [facility] Estimated Glomerular Filtration Rate 50 mL/min/1.73m Low >=60 mL/min/1.73 m [facility] Glucose [Mass/Vol] 136 mg/dL High 74 - 99 mg/dL [facility] Potassium [Moles/Vol] 4.3 mmol/L 3.7 - 5.1 mmol/L [facility] Protein [Mass/Vol] 6.1 g/dL Low 6.3 - 8.0 g/dL [facility] Sodium [Moles/Vol] 141 mmol/L 136 - 144 mmol/L [facility] Urea nitrogen [Mass/Vol] 30 mg/dL High 9 - 24 mg/dL [facility] ANES POSTPROC EVALon 022 ANES POSTPROC EVAL HNO ID: [id number] Author: Mk Salmeron DO Service: Anesthesiology Author Type: Anesthesiologist Type: Anesthesia Postprocedure Evaluation Filed: 10/10/2022 3:10 PM Note Text: POST ANESTHESIA EVALUATION NOTE : 1950 Procedure Summary Date: 10/10/22 Room / Location: [facility] Anesthesia Start: 1313 Anesthesia Stop: 1415 Procedure: [...] October 10, 2022 TIME: 3:09 PM CSN: [id number] [facility] ANES PRE-OPon 10-10-2022 ANES PRE-OP HNO ID: [id number] Author: Zeyad House MD Service: Anesthesiology Author [...] October 10, 2022 TIME: 12:31 PM CSN: [id number] [facility] CYTOLOGY NON-GYNon 2 ADEQUACY INTERPRETATION Normal [facility] Comment on above: Order Comment: Speci men Type: SPECIMEN OBTAINED BY ASPIRATION Ordering Facility: [facility] Address: [address] [place] [address] Result Comment: A: # 1,2 Lymphoid sample [...] discrete evaluation episode. Intra-procedural assessment performed at [facility], [address] [place] [address] Performed By: #### C YTONON #### [facility] CLIA [id number] [address] [place] [address] STATES [facility] CASE REPORT Normal [facility] Comment on above: Order Comment: Speci men Type: SPECIMEN OBTAINED BY ASPIRATION Ordering Facility: [facility] Address: [address] [place] [address] Result Comment: [facility] Cytology Report Case: [id number] Authorizing Provider: Hang Maier MD Collected: 10/10/2022 01:18 PM Ordering Location: [facility] Received: 10/10/2022 03:13 PM Endoscopy - ENDO Pathologist: Jose G Terry MD Specimens: A) - EBUS TRANSBRONCHIAL FINE NEEDLE ASPIRATE, LYMPH NODE, STATION 7 B) - EBUS TRANSBRONCHIAL FINE NEEDLE ASPIRATE, LYMPH NODE, 4R C) - EBUS TRANSBRONCHIAL FINE NEEDLE ASPIRATE, LYMPH NODE, 11RS Performed By: #### C YTONON #### [facility] CLIA [id number] [address] [place] [address] CLINICAL HISTORY Adenocarcinoma of th e lower rectum Normal [facility] Comment on above: Order Comment: Speci men Type: SPECIMEN OBTAINED BY [facility] Ordering Facility: [facility] Address: [address] [place] [address] Performed By: #### C YTONON #### [facility] CLIA [id number] [address] [place] [address] DIAGNOSIS COMMENT C. The specimen consists of loose clusters of histiocytes, but no definitive granulomas identified. As a result, specials stains are not performed. Normal [facility] Comment on above: Order Comment: Speci men Type: SPECIMEN OBTAINED BY [facility]IR[facility] Ordering Facility: [facility] Address: [address] [place] [address] Performed By: #### C YTONON #### [facility] CLIA [id number] [address] [place] [address] FINAL DIAGNOSIS Normal [facility] Comment on above: Order Comment: Speci men Type: SPECIMEN OBTAINED BY ASPIRATION Ordering Facility: [facility] Address: [address] [place] [address] Result Comment: A - EBUS TRANSBRONCHIAL FINE [...] Fixed Performed By: #### C YTONON #### [facility] CLIA [id number] [address] [place] [address] FINAL PERFORMING LAB Normal [facility] Comment on above: Order Comment: Speci men Type: SPECIMEN OBTAINED BY ASPIRATION Ordering Facility: [facility] Address: [address] [place] [address] Result Comment: Tech nical component, cnc machine operator screening performed at [facility], [address] [place] [address] CLIA# [id number] Diagnostic interpretation performed at [facility], [address] [place] [address] CLIA# [id number] Biostatistics Manager: Brett Escalera M.D. Performed By: #### C YTONON #### [facility] CLIA [id number] [address] [place] [address] GROSS DESCRIPTION Normal [facility] Comment on above: Order Comment: Speci men Type: SPECIMEN OBTAINED BY ASPIRATION Ordering Facility: [facility] Address: [address] [place] [address] Result Comment: A. E BUS TRANSBRONCHIAL FINE NEEDLE ASPIRATE, LYMPH NODE 30 cc clear colorless CytoLyt with particles. ThinPrep and Cell Block prepared and 4 smears (2 air dried and 2 fixed). Performed By: #### C YTONON #### [facility] CLIA [id number] [address] [place] [address] OF [place]ARATHI ORDER COMMENT Normal [facility] Comment on above: Order Comment: Speci men Type: SPECIMEN OBTAINED BY ASPIRATION Ordering Facility: [facility] Address: [address] [place] [address] Result Comment: Pre- op diagnosis: Adenopathy [R59.9] Performed By: #### C YTONON #### [facility] CLIA [id number] [address] [place] [address] OF [place]ARATHI NURSING PROGon 10-10-2022 NURSING PROG HNO ID: [id number] Author: Oliva Alcantara RN Service: Nursing Author [...] REFERRAL (RECOMMENDATION): None Electronically Signed By: Oliva Sosamons [facility] Yaron 10-09-2022 [facility] Telephone (FVENDO) MERVAT DAMON ([id number]) 1950 M Date Time Provider Department 10/09/22 HANG MAIER During your visit today, we recorded the following information about you: Vito Del Castillo 10/09/2022 11:58 AM Signed Spoke with the patient confirmed noon arrival time for 1 pm appointment at [facility] Vito Del Castillo Allergies As of [...] Status:Closed by VITO DEL CASTILLO on 10/09/22 [facility] HISTORY PHYSICALon HISTORY PHYSICAL HNO ID: [id number] Author: Hang Maier MD Service: ? Author Type: Physician Type: HANDP Filed: 10/08/2022 3:58 PM Note Text: VIRTUAL VISIT PROGRESS NOTE This is a virtual visit using USEREADY video visit. It required patient-provider interaction for the medical decision making as documented below. Mervat Damon is a 72 year old male seen for evaluation of mediastinal adenopathy, referred by Dr. Minerva Anderson. My findings and recommendations will be [...] to acq (more content not included)... Normal [facility] MR abdomen wo/w conon 2021 MR abdomen wo/w con [facility] [place] [address] [place] [address] MRI Report Signed Patient: Mervat Damon MR#: [id number] : 1950 Acct:[id number] Age/Sex: 71 / M ADM Date: 10/01/22 Loc: Room: Type: [facility] Attending Dr: Minerva Anderson MD Copies to: Minerva Anderson MD Ordering Provider: Minerva Anderson MD Date of Service: 10/01/22 MR/MR [...] CHOLELITHIASIS. Impression dictated by: Hang Houser Jr., D.OShirley10/02/2022 10:33 AM Dictation Location: [place] [address] Transcribed By: [facility] 10/02/22 1033 Dictated By: Hang Houser Jr, DO 10/02/22 0923 Signed By: 10/02/22 1033 [facility] Creatinine (Bld) [Mass/Vol]O rdered By: Minerva Anderson on 10-01-2022 Creatinine [Mass/Vol] 1.2 mg/dL 0.6-1.3 [facility] Comment on above: ER/ESD physician is notified/shown all ISTAT results.Critical values may be confirmed by laboratory testing ifdeemed necessary by ER attending doctor. ISTAT XRay CREon 10-01-2022 Creatinine [Mass/Vol] 1.2 mg/dL Normal 0.6-1.3 [facility] Comment on above: Result Comment: ER/E [place] physician is notified/shown all ISTAT results. Critical values may be confirmed by laboratory testing if deemed necessary by ER attending doctor. Performed By: #### I SCRE #### [facility] [address] [place] [address] Point of Care testing , ISTAT GFR ( > 60 Normal [facility] Comment on above: Result Comment: GFR estimated reference range: According to KDOQI guidelines, <60 ml/min/1.73m2 is sufficient to diagnose a patient with chronic kidney disease. PERFORMED BY: [place] [address] PATHOLOGIST INSERTING OPERATOR YONG HANKINS M.D. Performed By: #### I SCRE #### [facility] [address] [place] [address] Point of Care testing , ISTAT GFR (Non- Am 60 Normal [facility] Comment on above: Performed By: #### I SCRE #### [facility] [address] Point of Care testing , No Panel InformationOrdered By: Minerva Anderson on 10-01-2022 POC Estimated GFR > 60 [facility] Comment on above: GFR estimated refere nce range: According to KDOQI guidelines, <60 ml/min/1.73m2 is sufficient to diagnose a patient with chronic kidney disease. POC Estimated GFR Non- Amer 60 [facility] PATH CONSULTon 09-20-2022 LAB AP CASE REPORT Normal [facility] Comment on above: Result Comment: PATH OLOGY CONSULT Case: [id number] Authorizing Provider: Thalia Troy MD Collected: 09/20/2022 1150 Ordering Location: [facility] Lab Received: 09/20/2022 1153 Pathologist: Vanessa Maldonado MD Specimen: Anus, Biopsy Performed By: #### P ATH CONSULT ####[facility] (BEAKER)[address] , [place] [address] LAB AP CLINICAL INFORMATION Anal mass Normal [facility] Comment on above: Performed By: #### P ATH CONSULT ####[facility] ([facility])[address] [place] [address] LAB AP DIAGNOSIS COMMENT Normal [facility] Comment on above: Result Comment: Prov [...] needed. Performed By: #### P ATH CONSULT ####[facility] ([facility])[address] [place] [address] LAB AP GROSS DESCRIPTION A. Anus. [facility] Comment on above: Result Comment: Rece ived from [address] [place] [address] are eight (8) previously stained glass slides accessioned [id number]. The slides are accompanied by a copy of the contributing pathologists??? report. Performed By: #### P ATH CONSULT ####[facility] ([facility])[address] [place] [address] LAB AP REPORT FINAL DIAGNOSIS NARRATIVE [facility] Comment on above: Result Comment: Mass at anal verge, biopsy ([id number], are 8 slides received from [facility]): Adenocarcinoma of colonic origin. Performed By: #### P ATH CONSULT ####[facility] ([facility])[address] [place] [address] CBC W Auto Differential pane l (Bld)on 09-17-2022 Basophils (Bld) [#/Vol] 0.06 10*3/uL <0.11 k/uL [facility] Basophils/100 WBC (Bld) 0.6 % [facility] Differential cell count method Nom (Bld) Auto [facility] Eosinophils (Bld) [#/Vol] 0.26 10*3/uL <0.46 k/uL [facility] Eosinophils/100 WBC (Bld) 2.7 % [facility] Erythrocyte distribution width (RBC) [Ratio] 15.2 % High 11.5 - 15.0 % [facility] Hematocrit (Bld) [Volume fraction] 43.9 % 39.0 - 51.0 % [facility] Hemoglobin (Bld) [Mass/Vol] 14.4 g/dL 13.0 - 17.0 g/dL [facility] Immature granulocytes (Bld) [#/Vol] 0.03 10*3/uL <0.10 k/uL [facility] Immature granulocytes/100 WBC (Bld) 0.3 % [facility] Lymphocytes (Bld) [#/Vol] 2.17 10*3/uL 1.00 - 4.00 k/uL [facility] Lymphocytes/100 WBC (Bld) 22.8 % [facility] MCH (RBC) [Entitic mass] 31.0 pg 26.0 - 34.0 pg [facility] MCHC (RBC) [Mass/Vol] 32.8 g/dL 30.5 - 36.0 g/dL [facility] MCV (RBC) [Entitic vol] 94.4 fL 80.0 - 100.0 fL [facility] Monocytes (Bld) [#/Vol] 0.67 10*3/uL <0.87 k/uL [facility] Monocytes/100 WBC (Bld) 7.0 % [facility] Neutrophils (Bld) [#/Vol] 6.33 10*3/uL 1.45 - 7.50 k/uL [facility] Neutrophils/100 WBC (Bld) 66.6 % [facility] Nucleated RBC (Bld) [#/Vol] <0.01 k/uL [facility] Nucleated RBC/100 WBC (Bld) [Ratio] 0.0 /100 WBC [facility] Platelet mean volume (Bld) [Entitic vol] 10.4 fL 9.0 - 12.7 fL [facility] Platelets (Bld) [#/Vol] 232 10*3/uL 150 - 400 k/uL [facility] RBC (Bld) [#/Vol] 4.65 10*6/uL 4.20 - 6.0 0 m/uL [facility] WBC (Bld) [#/Vol] 9.52 10*3/uL 3.70 - 11.00 k/uL [facility] Comprehensive metabolic 2000 panelon 09-17-2022 Albumin [Mass/Vol] 4.2 g/dL 3.9 - 4.9 g/dL [facility] ALP [Catalytic activity/Vol] 89 U/L 38 - 113 U/L [facility] ALT [Catalytic activity/Vol] 11 U/L 10 - 54 U/L [facility] Anion gap [Moles/Vol] 8 mmol/L Low 9 - 18 mmol/L [facility] AST [Catalytic activity/Vol] 16 U/L 14 - 40 U/L [facility] Bilirubin [Mass/Vol] 0.5 mg/dL 0.2 - 1 .3 mg/dL [facility] Calcium [Mass/Vol] 9.3 mg/dL 8.5 - 10. 2 mg/dL [facility] Chloride [Moles/Vol] 103 mmol/L 97 - 10 5 mmol/L [facility] CO2 [Moles/Vol] 29 mmol/L 22 - 30 mmol/L [facility] Creatinine [Mass/Vol] 1.22 mg/dL 0.73 - 1.22 mg/dL [facility] Estimated Glomerular Filtration Rate 64 mL/min/1.73m >=60 mL/min/1.73 m [facility] Glucose [Mass/Vol] 84 mg/dL 74 - 99 mg/dL [facility] Potassium [Moles/Vol] 4.1 mmol/L 3.7 - 5.1 mmol/L [facility] Protein [Mass/Vol] 6.5 g/dL 6.3 - 8.0 g/dL [facility] Sodium [Moles/Vol] 140 mmol/L 136 - 144 mmol/L [facility] Urea nitrogen [Mass/Vol] 23 mg/dL 9 - 24 mg/dL [facility] CT ABDOMEN PELVIS W IV CONTR Harish [...] gallbladder dilatation. Electronically signed: Jerrica Barragan. Normal [facility] CT CHEST W IV CONTRASTon CT [...] granulomatous disease. Electronically signed: Jerrica Barragan. Normal [facility] MR PELVIS WO CONTRASTon 08-22 MR [...] findings section. Electronically signed: MERVAT JACINTO. Normal [facility] Comment on above: Order Comment: RECTA L MRI NEEDED CEAon 09-05-2022 CARCINOEMBRYONIC AG (NG/ML) IN SER/PLAS 14.4 ng/mL High 0-3 [facility] Comment on above: Performed By: #### L AB57 ####[facility] ([facility])[address] [place] [address] CREATININE, SERUMon 09-05-20 Creatinine [Mass/Vol] 1.15 mg/dL Normal 0.70-1.30 [facility] Comment on above: Performed By: #### L AB383 #### [facility] ([facility]) [address] [place] [address] GLOMERULAR FILTRATION RATE ML/MIN/1.73 SQ M.PREDICTED 64.6 mL/min/1.73m*2 Normal >60.0 [facility] Comment on above: Result Comment: [facility]???s estimated glomerular filtration rate (eGFR) will [...] individuals. Performed By: #### L AB383 #### [facility] ([place]) [address] [place] [address] Office Visiton 09-05-2022 Follow-up visit [id number] Mervat Damon 1950 M Date Provider Department Center 09/05/2022 THALIA WONG [facility] Second Fl Family History Problem Relation Age of Onset Pancreatic cancer Mother Breast cancer Mother Other Father Liver cancer Sister Thyroid cancer Brother Family Status - Relation Status Age at Mother Father Sister Brother Alive Level of Service:64564 CO OFFICE/OUTPATIENT ESTABLISHED MOD MDM 30-39 MIN Reason for Visit and Comments: Follow-up [799055] - Adenocarcinoma of colon (Reveiw biopsy results) [facility] 36on 08-29-[address] TROY SCHEDULE IN OFFICE ON 09/05/22. CALLED PT AND SCHEDULED WITH DR. TROY PER PROVIDER REQUEST. Normal [facility] 36 Pt update he states metamusil is helping with constipation and pain is still between 2-5. Pt is scheduled for next Saturday. [facility] Orders Onlyon 08-29-2022 Orders Only [id number] Mervat Damon 1950 M Date Provider Department Center 08/29/2022 BERNARDO WHITING [facility] Second Fl No family history on file [facility] Consulton 08-22-2022 Consult [id number] Juárez 1950 M Date Provider Department Center 08/22/2022 387-THALIA TROY [facility] Second Fl No family history on file Level of Service:43664 CO OFFICE/OUTPATIENT NEW MODERATE MDM 45-59 MINUTES Reason for Visit and Comments: Consult [484] - rectal mass Normal [facility] Laboratory - Chemistry and C hemistry [...] 55 mL/min/1.73 m2 Low >=59mL/min/ 1.73 m2 [facility] Chem S Globulin (S) [Mass/Vol] 3.2 g/dL Normal 1.4 - 4.0 gm/dL [facility] Glucose [Mass/Vol] 72 mg/dL Normal 55 [...] 15.0 % High 10.9 - 14.2 % [facility] Hematocrit (Bld) [Volume fraction] 42.0 % Normal 37.7 - 49.0 % [facility] Hemoglobin (Bld) [Mass/Vol] 13.9 g/dL Normal 13.5 - 17.5 gm/dL [facility] MCH (RBC) [Entitic mass] 31.4 pg Normal 27.0 - 34.0 pg [facility] MCHC (RBC) [Mass/Vol] 33.2 g/dL Normal 31.4 - 36.0 gm/dL [facility] MCV (RBC) [Entitic vol] 94.7 fL Normal 80.0 - 100.0 fL [facility] Platelet mean volume (Bld) [Entitic vol] [...] 12 mmol/L Normal 6 - 16 mEq/L [facility] Calcium [Mass/Vol] 9.2 mg/dL Normal 8.9 - 11. 1 mg/dL [facility] Chloride [Moles/Vol] 105 mmol/L Normal 101 - 1 11 mmol/L [facility] CO2 [Moles/Vol] 24 mmol/L Normal 21 - 31 mmol/L [facility] Creatinine [Mass/Vol] 1.6 mg/dL High 0.5 - 1.3 mg/dL [facility] GFR/1.73 sq M.predicted among blacks MDRD (S/P/Bld) [Vol rate/Area] 52 mL/min/1.73 m2 Low >=59mL/min/ 1.73 m2 [facility] Chem S GFR/1.73 sq M.predicted among non-blacks MDRD (S/P/Bld) [Vol rate/Area] 43 mL/min/1.73 m2 Low >=59mL/min/ 1.73 m2 [facility] Chem S Glucose [Mass/Vol] 86 mg/dL Normal [...] 0.7 % Normal 0.0 - 2.0 % [facility] Basophils/Leukocytes Auto (Bld) [Pure # fraction] [...] Not detected Invalid Interpretation Code Not Detected [facility] Comment on above: Result Comment: This nucleic acid amplification test was developed and its performance characteristics determined by [employer]. Nucleic acid amplification tests include RT-PCR and [...] detected) result in this assay. Performed at: [address] [id number] PhD Antionette Harris Covid-19 PCR ([facility])on SARS-CoV-2 (COVID-19) RNA MIGUE+probe Ql (Unsp spec) Not detected Normal NOT DETECTED [facility] Comment on above: Result Comment: This test is not yet approved or cleared by the [place] FDA. When there are no FDA-approved or cleared tests available, and other criteria are met, FDA can make tests available under an emergency access mechanism called an Emergency Use Authorization (EUA). The EUA for this test is supported by the [place] of Health and Human Service's (HHS's) declaration [...] SARS-CoV-2. Performed By: #### C VDTB #### [facility] [address] [place], [place] [id number] Shannan Viola CBC AUTO DIFFon 03-23-2021 BASO # 0.1 103/ul Normal 0.0-0.1 [facility] Comment on above: Performed By: #### C BC #### [facility] [address] [place], [place] [address] Shannan Vioal Basophils/100 WBC (Bld) 0.8 % Normal 0.2-2.0 [facility] Comment on above: Performed By: #### C BC #### [facility] [address] [place] [address] Shannan Viola EO # 0.3 103/ul Normal 0.0-0.7 [facility] Comment on above: Performed By: #### C BC #### [facility] [address] [place], [place] [address] Shannan Viola Eosinophils/100 WBC (Bld) 4.1 % Normal 0.9-7.0 [facility] Comment on above: Performed By: #### C BC #### [facility] [address] [place], [place] [address] Shannan Viola Erythrocyte distribution width (RBC) [Ratio] 16.0 % Critically high 11.0-15.0 [facility] Comment on above: Performed By: #### C BC #### [facility] [address] [place], [place] [address] Shannan Viola Hematocrit (Bld) [Volume fraction] 40.8 % Critically low 42.0-54.0 [facility] Comment on above: Performed By: #### C BC #### [facility] [address] [place], [place] [address] Shannan Viola Hemoglobin (Bld) [Mass/Vol] 13.4 g/dL Critically low 14.0-18.0 [facility] Comment on above: Performed By: #### C BC #### [facility] [address] [place] [address] Shannan Viola IG # 0.02 10e3/ul Normal 0.00-0.03 [facility] Comment on above: Performed By: #### C BC #### [facility] [address] [place] [address] Shannan Viola IG % 0.3 % Normal 0.0-0.5 [facility] Comment on above: Performed By: #### C BC #### [facility] [address] [place] [address] Shannan Viola LYMPH # 2.1 103/ul Normal 1.2-3.8 [facility] Comment on above: Performed By: #### C BC #### [facility] [address] [place] [address] Shannan Viola Lymphocytes/100 WBC (Bld) 26.3 % Normal 20.5-60.0 [facility] Comment on above: Performed By: #### C BC #### [facility] [address] [place] [address] Shannan Viola MANUAL DIFF REQ NO Normal [facility] Comment on above: Performed By: #### C BC #### [facility] [address] [place] [address] Shannan Viola MCH (RBC) [Entitic mass] 31.0 pg Normal 25.9-34.0 [facility] Comment on above: Performed By: #### C BC #### [facility] [address] [place] [address] Shannan Viola MCHC (RBC) [Mass/Vol] 32.8 g/dL Normal 29.9-35.2 [facility] Comment on above: Performed By: #### C BC #### [facility] [address] [place] [address] Shannan Viola MCV (RBC) [Entitic vol] 94.4 fL Critically high 80.0-94.0 [facility] Comment on above: Performed By: #### C BC #### [facility] [address] [place] [address] Shannan Viola MONO # 0.7 103/ul Normal 0.3-0.8 [facility] Comment on above: Performed By: #### C BC #### [facility] [address] [place], [place] [address] Shannan Rod Monocytes/100 WBC (Bld) 8.8 % Normal 1.7-12.0 [facility] Comment on above: Performed By: #### C BC #### [facility] [address] [place], [place] [address] Shannan Rod NEUT # 4.7 103/ul Normal 1.4-6.5 [facility] Comment on above: Performed By: #### C BC #### [facility] [address] [place], [place] [address] Shannan Rod Neutrophils/100 WBC (Bld) 59.7 % Normal 43.0-75.0 [facility] Comment on above: Performed By: #### C BC #### [facility] [address] [place], [place] [address] Shannan Rod Platelet mean volume (Bld) [Entitic vol] 10.0 fL Normal 9.5-13.5 [facility] Comment on above: Performed By: #### C BC #### [facility] [address] [place], [place] [address] Shannan Rod PLT 225 103/ul Normal 150-450 [facility] Comment on above: Performed By: #### C BC #### [facility] [address] [place], [place] [address] Shannan Rod RBC 4.32 106/ul Critically low 4.70-6.10 [facility] Comment on above: Performed By: #### C BC #### [facility] [address] [place], [place] [address] Shannandomenic Mejiaen WBC 7.8 103/ul Normal 4.0-11.0 [facility] Comment on above: Performed By: #### C BC #### [facility] [address] [place], [place] [address] Shannan Rod PROF CHEM 8 (BAS METB)on Anion gap [Moles/Vol] 9.5 mmol/L Normal [facility] Comment on above: Performed By: #### B MP #### [facility] [address] [place] [id number] Shannan Viola Calcium [Mass/Vol] 8.6 mg/dL Normal 8.4-10.2 [facility] Comment on above: Performed By: #### B MP #### [facility] [address] [place] [address] Shannan Viola Chloride [Moles/Vol] 106 mmol/L Normal 98-107 [facility] Comment on above: Performed By: #### B MP #### [facility] [address] [place] [address] Shannan Viola CO2 [Moles/Vol] 30.5 mmol/L Critically high 22.0-30.0 [facility] Comment on above: Performed By: #### B MP #### [facility] [address] [place] [address] Shannan Viola Creatinine [Mass/Vol] 1.22 mg/dL Normal 0.66-1.25 [facility] Comment on above: Performed By: #### B MP #### [facility] [address] [place] [id number] Shannan Viola EGFR-AF PUERTO RICAN >60 Normal >=60 [facility] Comment on above: Performed By: #### B MP #### [facility] [address] [place] [address] Shannan Viola EGFR-NON AF PUERTO RICAN 59 mL/min/1.73m2 Critically low >=60 [facility] Comment on above: Performed By: #### B MP #### [facility] [address] [place] [phone] Shannan Viola Glucose [Mass/Vol] 84 mg/dL Normal 74-106 [facility] Comment on above: Performed By: #### B MP #### [facility] [address] [place] [address] Shannan Viola Potassium [Moles/Vol] 4.0 mmol/L Normal 3.4-5.0 [facility] Comment on above: Performed By: #### B MP #### [facility] [facility] [address] [id number] Shannan Viola Sodium [Moles/Vol] 142 mmol/L Normal 137-145 [facility] Comment on above: Performed By: #### B MP #### [facility] [address] [place], [place] [id number] Shannandomenic Rod Urea nitrogen [Mass/Vol] 15.0 mg/dL Normal 9.0-20.0 [facility] Comment on above: Performed By: #### B MP #### [facility] [address] [place] [address] Shannandomenic Rod Urea nitrogen/Creatinine [Mass ratio] 12.3 mg/mg Normal [facility] Comment on above: Performed By: #### B MP #### [facility] [address] [place] [address] Shannan Rod PROTIMEon 03-23-2021 INR Coag (PPP) [Relative time] 0.99 {INR} Normal [facility] Comment on above: Performed By: #### P T, PTT #### [facility] [address] [place] [address] Shannandomenic Rod INR GUIDELINES SEE BELOW Normal [facility] Comment on above: Result Comment: YASMANY RED INR: 2.0 - 3.0 CONDITIONS NOT LISTED BELOW 2.5 - 3.5 FOR PROSTHETIC HEART VALVE REPLACEMENT 2.5 - 3.5 RECURRENT THROMBOSIS Performed By: #### P T, PTT #### [facility] [address] [place] [address] Shannan Voila PT Coag (PPP) [Time] 10.8 s Normal 9.0-11.6 [facility] Comment on above: Performed By: #### P T, PTT #### [facility] [address] [place], [place] [id number] Shannan Rod PTTon 03-23-2021 aPTT Coag (Bld) [Time] 28.1 s Normal 22.3-36.2 [facility] Comment on above: Performed By: #### P T, PTT #### [facility] [address] [place] [address] Shannan Rod XR FOOT BLANCA MIN 3 [...] by: DEBORAH PETIT Date: 2021-02-02 11:19 Normal [facility] Vital Signs Date Time Vital Sign Value Performing Clinician Crescencioi lity 10-09-2023 12:56-0500 Diastolic blood pressure 71 mm[Hg] Cyndee [employer] [facility] 10-09-2023 12:56-0500 Heart rate 76 /min Cyndee [employer] [facility] 10-09-2023 12:56-0500 Mean blood pressure 82 mm[Hg] Cyndee [employer] [facility] 10-09-2023 12:56-0500 Systolic blood pressure 103 mm[Hg] Cyndee [employer] [facility] 07-16-2023 08:20-0400 Body height 187.96 cm [employer] [facility] Other 07-16-2023 08:20-0400 Body mass index (BMI) [Ratio] 30.55 kg/m2 [facility] Other 07-16-2023 08:20-0400 Body weight 107.96 kg [facility] Other 07-16-2023 08:20-0400 Diastolic blood pressure 90 mm[Hg] Valencia [employer] Other [facility] Other 07-16-2023 08:20-0400 Systolic blood pressure 128 mm[Hg] [employer] Other [facility] Other 07-09-2023 10:10-0400 Diastolic blood pressure 79 mm[Hg] Deborah Norman MD Work Phone: [facility] 07-09-2023 10:10-0400 Heart rate 57 /min Deborah Norman MD Work Phone: [facility] 07-09-2023 10:10-0400 Respiratory rate 19 /min Deborah Norman MD Work Phone: [facility] 07-09-2023 10:10-0400 SaO2% (BldA) [Mass fraction] 94 % Deborah Norman MD Work Phone: [facility] 07-09-2023 10:10-0400 Systolic blood pressure 109 mm[Hg] Deborah Norman MD Work Phone: [facility] 07-09-2023 09:46-0400 Body temperature 97.2 [degF] Deborah Norman MD Work Phone: [facility] 06-18-2023 14:00-0400 Body height 187.96 cm Valencia Torres Other [facility] Other 06-18-2023 14:00-0400 Body mass index (BMI) [Ratio] 30.68 kg/m2 [employer] Other [facility] Other 06-18-2023 14:00-0400 Body weight 108.41 kg [employer] [facility] Other 05-28-2023 10:06-0400 Body height 187.7 cm Minerva Anderson MD Work Phone: [facility] 05-28-2023 10:06-0400 Body temperature 97.59 [degF] Minerva Anderson MD Work Phone: [facility] 05-28-2023 10:06-0400 Body weight 105.96 kg Minerva Anderson MD Work Phone: [facility] 05-28-2023 10:06-0400 Diastolic blood pressure 86 mm[Hg] Minerva Anderson MD Work Phone: [facility] 05-28-2023 10:06-0400 Heart rate 64 /min Minerva Anderson MD Work Phone: [facility] 05-28-2023 10:06-0400 Respiratory rate 16 /min Minerva Anderson MD Work Phone: [facility] 05-28-2023 10:06-0400 SaO2% (BldA) [Mass fraction] 95 % Minerva Anderson MD Work Phone: [facility] 05-28-2023 10:06-0400 Systolic blood pressure 124 mm[Hg] Minerva Anderson MD Work Phone: [facility] 05-07-2023 13:15-0400 Diastolic blood pressure 68 mm[Hg] Bryon Anthony [facility] 05-07-2023 13:15-0400 Heart rate 42 /min Bryon Anthony [facility] 05-07-2023 13:15-0400 Mean blood pressure 82 mm[Hg] Bryon Anthony [facility] 05-07-2023 13:15-0400 Respiratory rate 14 /min Bryon Anthony [facility] 05-07-2023 13:15-0400 Systolic blood pressure 109 mm[Hg] Bryon Anthony [facility] 04-29-2023 08:32-0400 Blood Pressure Location Cyndee SANCHEZ [facility] 04-29-2023 08:32-0400 Diastolic blood pressure 73 mm[Hg] Cyndee SANCHEZ [facility] 04-29-2023 08:32-0400 Heart rate 61 /min Cyndee SANCHEZ [facility] 04-29-2023 08:32-0400 SaO2% (BldA) [Mass fraction] 95 % Cyndee SANCHEZ [facility] 04-29-2023 08:32-0400 Systolic blood pressure 116 mm[Hg] Cyndee SANCHEZ [facility] 04-11-2023 09:30-0400 Body height 187.96 cm [facility] Other 04-11-2023 09:30-0400 Body mass index (BMI) [Ratio] 29.78 kg/m2 [facility] Other 04-11-2023 09:30-0400 Body weight 105.24 kg [facility] Other [facility] Other 04-11-2023 09:30-0400 Diastolic blood pressure 82 mm[Hg] [facility] [facility] Other 04-11-2023 09:30-0400 Systolic blood pressure 122 mm[Hg] [facility] [facility] Other 04-09-2023 13:30-0400 Diastolic blood pressure 95 mm[Hg] Deborah Norman MD Work Phone: [facility] 04-09-2023 13:30-0400 Heart rate 78 /min Deborah Norman MD Work Phone: [facility] 04-09-2023 13:30-0400 Respiratory rate 15 /min Deborah Norman MD Work Phone: [facility] 04-09-2023 13:30-0400 SaO2% (BldA) [Mass fraction] 95 % Deborah Norman MD Work Phone: [facility] 04-09-2023 13:30-0400 Systolic blood pressure 138 mm[Hg] Deborah Norman MD Work Phone: [facility] 04-09-2023 13:05-0400 Body temperature 97.3 [degF] Deborah Norman MD Work Phone: [facility] 03-21-2023 10:54-0400 Body temperature 97.81 [degF] Chair Wewoka Work Phone: [facility] 03-21-2023 10:54-0400 Diastolic blood pressure 74 mm[Hg] Chair Arya Work Phone: [facility] 03-21-2023 10:54-0400 Heart rate 63 /min Chair Wewoka Work Phone: [facility] 03-21-2023 10:54-0400 Respiratory rate 18 /min Chair Wewoka Work Phone: [facility] 03-21-2023 10:54-0400 SaO2% (BldA) [Mass fraction] 95 % Chair Arya Work Phone: [facility] 03-21-2023 10:54-0400 Systolic blood pressure 108 mm[Hg] Chair Wewoka Work Phone: [facility] 03-19-2023 08:39-0400 Body height 187.7 cm Minerva Anderson MD Work Phone: [facility] 03-19-2023 08:39-0400 Body temperature 97.2 [degF] Minerva Anderson MD Work Phone: [facility] 03-19-2023 08:39-0400 Body weight 110.04 kg Minerva Anderson MD Work Phone: [facility] 03-19-2023 08:39-0400 Diastolic blood pressure 70 mm[Hg] Minerva Anderson MD Work Phone: [facility] 03-19-2023 08:39-0400 Heart rate 69 /min Minerva Anderson MD Work Phone: [facility] 03-19-2023 08:39-0400 Respiratory rate 16 /min Minerva Anderson MD Work Phone: [facility] 03-19-2023 08:39-0400 SaO2% (BldA) [Mass fraction] 96 % Minerva Anderson MD Work Phone: [facility] 03-19-2023 08:39-0400 Systolic blood pressure 105 mm[Hg] Minerva Anderson MD Work Phone: [facility] 03-18-2023 10:40-0400 Body temperature 97.88 [degF] [facility] 03-18-2023 10:40-0400 Diastolic blood pressure 91 mm[Hg] [facility] 03-18-2023 10:40-0400 Heart rate 69 /min [facility] 03-18-2023 10:40-0400 Respiratory rate 18 /min [facility] 03-18-2023 10:40-0400 SaO2% (BldA) [Mass fraction] 96 % [facility] 03-18-2023 10:40-0400 Systolic blood pressure 142 mm[Hg] [facility] 03-13-2023 10:24-0400 Body temperature 96.69 [degF] JOSE Vásquez MD Work Phone: [facility] 03-13-2023 10:24-0400 Body weight 108.41 kg JOSE Vásquez MD Work Phone: [facility] 03-13-2023 10:24-0400 Diastolic blood pressure 70 mm[Hg] JOSE Vásquez MD Work Phone: [facility] 03-13-2023 10:24-0400 Heart rate 60 /min JOSE Vásquez MD Work Phone: [facility] 03-13-2023 10:24-0400 Respiratory rate 18 /min JOSE Vásquez MD Work Phone: [facility] 03-13-2023 10:24-0400 SaO2% (BldA) [Mass fraction] 98 % JOSE Vásquez MD Work Phone: [facility] 03-13-2023 10:24-0400 Systolic blood pressure 106 mm[Hg] JOSE Vásquez MD Work Phone: [facility] 02-21-2023 11:33-0400 Body temperature 97.5 [degF] Chair Wewoka Work Phone: [facility] 02-21-2023 11:33-0400 Diastolic blood pressure 75 mm[Hg] Chair Wewoka Work Phone: [facility] 02-21-2023 11:33-0400 Heart rate 57 /min Chair Wewoka Work Phone: [facility] 02-21-2023 11:33-0400 Respiratory rate 18 /min Chair Wewoka Work Phone: [facility] 02-21-2023 11:33-0400 SaO2% (BldA) [Mass fraction] 97 % Chair Arya Work Phone: [facility] 02-21-2023 11:33-0400 Systolic blood pressure 112 mm[Hg] Chair Arya Work Phone: [facility] 02-19-2023 09:21-0400 Body height 187.7 cm Minerva Anderson MD Work Phone: [facility] 02-19-2023 09:21-0400 Body temperature 97.3 [degF] Minerva Anderson MD Work Phone: [facility] 02-19-2023 09:21-0400 Body weight 111.4 kg Minerva Anderson MD Work Phone: [facility] 02-19-2023 09:21-0400 Diastolic blood pressure 88 mm[Hg] Minerva Anderson MD Work Phone: [facility] 02-19-2023 09:21-0400 Heart rate 61 /min Minerva Anderson MD Work Phone: [facility] 02-19-2023 09:21-0400 Respiratory rate 18 /min Minerva Anderson MD Work Phone: [facility] 02-19-2023 09:21-0400 SaO2% (BldA) [Mass fraction] 96 % Minerva Anderson MD Work Phone: [facility] 02-19-2023 09:21-0400 Systolic blood pressure 107 mm[Hg] Minerva Anderson MD Work Phone: [facility] 02-07-2023 14:38-0400 Body weight 110.59 kg Deborah Norman MD Work Phone: [facility] 02-07-2023 14:38-0400 Diastolic blood pressure 69 mm[Hg] Deborah Norman MD Work Phone: [facility] 02-07-2023 14:38-0400 Heart rate 77 /min Deborah Norman MD Work Phone: [facility] 02-07-2023 14:38-0400 SaO2% (BldA) [Mass fraction] 98 % Deborah Norman MD Work Phone: [facility] 02-07-2023 14:38-0400 Systolic blood pressure 110 mm[Hg] Deborah Norman MD Work Phone: [facility] 02-07-2023 10:08-0400 Body temperature 98.6 [degF] Chair Arya Work Phone: [facility] 02-07-2023 10:08-0400 Diastolic blood pressure 69 mm[Hg] Chair Arya Work Phone: [facility] 02-07-2023 10:08-0400 Heart rate 62 /min Chair Wewoka Work Phone: [facility] 02-07-2023 10:08-0400 Respiratory rate 18 /min Chair Arya Work Phone: [facility] 02-07-2023 10:08-0400 SaO2% (BldA) [Mass fraction] 96 % Chair Wewoka Work Phone: [facility] 02-07-2023 10:08-0400 Systolic blood pressure 99 mm[Hg] Chair Arya Work Phone: [facility] 02-04-2023 13:40-0400 Body weight 108.86 kg Mert Krueger MD Work Phone: [facility] 02-04-2023 13:40-0400 Diastolic blood pressure 69 mm[Hg] Mert Krueger MD Work Phone: [facility] 02-04-2023 13:40-0400 Heart rate 76 /min Mert Krueger MD Work Phone: [facility] 02-04-2023 13:40-0400 Systolic blood pressure 105 mm[Hg] Mert Krueger MD Work Phone: [facility] 01-24-2023 10:49-0400 Body temperature 97.5 [degF] Chair Arya Work Phone: [facility] 01-24-2023 10:49-0400 Diastolic blood pressure 68 mm[Hg] Chair Wewoka Work Phone: [facility] 01-24-2023 10:49-0400 Heart rate 59 /min Chair Wewoka Work Phone: [facility] 01-24-2023 10:49-0400 Respiratory rate 18 /min Chair Arya Work Phone: [facility] 01-24-2023 10:49-0400 SaO2% (BldA) [Mass fraction] 97 % Chair Arya Work Phone: [facility] 01-24-2023 10:49-0400 Systolic blood pressure 96 mm[Hg] Chair Wewoka Work Phone: [facility] 01-22-2023 15:50-0400 Blood Pressure Location Santiago Kong [facility] 01-22-2023 15:50-0400 Diastolic blood pressure 76 mm[Hg] Santiago Kong [facility] 01-22-2023 15:50-0400 Heart rate 103 /min Santiago Kong [facility] 01-22-2023 15:50-0400 SaO2% (BldA) [Mass fraction] 96 % Santigao Kong [facility] 01-22-2023 15:50-0400 Systolic blood pressure 126 mm[Hg] Santiago Kong [facility] 01-22-2023 09:15-0400 Body temperature 97.7 [degF] Chair Arya Work Phone: [facility] 01-22-2023 09:15-0400 Diastolic blood pressure 75 mm[Hg] Chair Arya Work Phone: [facility] 01-22-2023 09:15-0400 Heart rate 59 /min Chair Arya Work Phone: [facility] 01-22-2023 09:15-0400 Respiratory rate 18 /min Chair Wewoka Work Phone: [facility] 01-22-2023 09:15-0400 SaO2% (BldA) [Mass fraction] 97 % Chair Wewoka Work Phone: [facility] 01-22-2023 09:15-0400 Systolic blood pressure 111 mm[Hg] Chair Arya Work Phone: [facility] 01-10-2023 09:59-0400 Body temperature 98.01 [degF] Chair Arya Work Phone: [facility] 01-10-2023 09:59-0400 Diastolic blood pressure 84 mm[Hg] Chair Wewoka Work Phone: [facility] 01-10-2023 09:59-0400 Heart rate 61 /min Chair Arya Work Phone: [facility] 01-10-2023 09:59-0400 Respiratory rate 18 /min Chair Wewoka Work Phone: [facility] 01-10-2023 09:59-0400 SaO2% (BldA) [Mass fraction] 98 % Chair Arya Work Phone: [facility] 01-10-2023 09:59-0400 Systolic blood pressure 129 mm[Hg] Chair Wewoka Work Phone: [facility] 01-08-2023 08:19-0400 Body height 187.7 cm Minerva Anderson MD Work Phone: [facility] 01-08-2023 08:19-0400 Body temperature 97.2 [degF] Minerva Anderson MD Work Phone: [facility] 01-08-2023 08:19-0400 Body weight 113.31 kg Minerva Anderson MD Work Phone: [facility] 01-08-2023 08:19-0400 Diastolic blood pressure 73 mm[Hg] Minerva Anderson MD Work Phone: [facility] 01-08-2023 08:19-0400 Heart rate 68 /min Minerva Anderson MD Work Phone: [facility] 01-08-2023 08:19-0400 Respiratory rate 16 /min Minerva Anderson MD Work Phone: [facility] 01-08-2023 08:19-0400 SaO2% (BldA) [Mass fraction] 98 % Minerva Anderson MD Work Phone: [facility] 01-08-2023 08:19-0400 Systolic blood pressure 107 mm[Hg] Minerva Anderson MD Work Phone: [facility] 12-27-2022 10:25-0500 Body temperature 97.59 [degF] Chair Arya Work Phone: [facility] 12-27-2022 10:25-0500 Diastolic blood pressure 59 mm[Hg] Chair Arya Work Phone: [facility] 12-27-2022 10:25-0500 Heart rate 65 /min Chair Arya Work Phone: [facility] 12-27-2022 10:25-0500 Respiratory rate 16 /min Chair Arya Work Phone: [facility] 12-27-2022 10:25-0500 SaO2% (BldA) [Mass fraction] 97 % Chair Wewoka Work Phone: [facility] 12-27-2022 10:25-0500 Systolic blood pressure 92 mm[Hg] Chair Wewoka Work Phone: [facility] 12-17-2022 15:11-0500 Body height 186.2 cm Minerva Anderson MD Work Phone: [facility] 12-17-2022 15:11-0500 Body temperature 97.3 [degF] Minerva Anderson MD Work Phone: [facility] 12-17-2022 15:11-0500 Body weight 111.22 kg Minerva Anderson MD Work Phone: [facility] 12-17-2022 15:11-0500 Diastolic blood pressure 63 mm[Hg] Minerva Anderson MD Work Phone: [facility] 12-17-2022 15:11-0500 Heart rate 71 /min Minerva Anderson MD Work Phone: [facility] 12-17-2022 15:11-0500 Respiratory rate 16 /min Minerva Anderson MD Work Phone: [facility] 12-17-2022 15:11-0500 SaO2% (BldA) [Mass fraction] 100 % Minerva Anderson MD Work Phone: [facility] 12-17-2022 15:11-0500 Systolic blood pressure 111 mm[Hg] Minerva Anderson MD Work Phone: [facility] 11-19-2022 14:32-0500 Body height 186.2 cm Minerva Anderson MD Work Phone: [facility] 11-19-2022 14:32-0500 Body temperature 97.59 [degF] Minerva Anderson MD Work Phone: [facility] 11-19-2022 14:32-0500 Body weight 110.5 kg Minerva Anderson MD Work Phone: [facility] 11-19-2022 14:32-0500 Diastolic blood pressure 87 mm[Hg] Minerva Anderson MD Work Phone: [facility] 11-19-2022 14:32-0500 Heart rate 77 /min Minerva Anderson MD Work Phone: [facility] 11-19-2022 14:32-0500 Respiratory rate 16 /min Minerva Anderson MD Work Phone: [facility] 11-19-2022 14:32-0500 SaO2% (BldA) [Mass fraction] 98 % Minerva Anderson MD Work Phone: [facility] 11-19-2022 14:32-0500 Systolic blood pressure 126 mm[Hg] Minerva Anderson MD Work Phone: [facility] 11-19-2022 14:12-0500 Body temperature 97.39 [degF] JOSE Vásquez MD Work Phone: [facility] 11-19-2022 14:12-0500 Body weight 110.5 kg JOSE Vásquez MD Work Phone: [facility] 11-19-2022 14:12-0500 Diastolic blood pressure 61 mm[Hg] JOSE Vásquez MD Work Phone: [facility] 11-19-2022 14:12-0500 Heart rate 76 /min JOSE Vásquez MD Work Phone: [facility] 11-19-2022 14:12-0500 Respiratory rate 16 /min JOSE Vásquez MD Work Phone: [facility] 11-19-2022 14:12-0500 SaO2% (BldA) [Mass fraction] 98 % JOSE Vásquez MD Work Phone: [facility] 11-19-2022 14:12-0500 Systolic blood pressure 95 mm[Hg] JOSE Vásquez MD Work Phone: [facility] 11-12-2022 14:08-0500 Body temperature 97.5 [degF] JOSE Vásquez MD Work Phone: [facility] 11-12-2022 14:08-0500 Body weight 110.86 kg JOSE Vásquez MD Work Phone: [facility] 11-12-2022 14:08-0500 Diastolic blood pressure 65 mm[Hg] JOSE Vásquez MD Work Phone: [facility] 11-12-2022 14:08-0500 Heart rate 89 /min JOSE Vásquez MD Work Phone: [facility] 11-12-2022 14:08-0500 Respiratory rate 18 /min JOSE Vásquez MD Work Phone: [facility] 11-12-2022 14:08-0500 SaO2% (BldA) [Mass fraction] 96 % JOES Vásquez MD Work Phone: [facility] 11-12-2022 14:08-0500 Systolic blood pressure 99 mm[Hg] JOSE Vásquez MD Work Phone: [facility] 11-05-2022 15:06-0500 Body temperature 96.3 [degF] JOSE Vásquez MD Work Phone: [facility] 11-05-2022 15:06-0500 Body weight 112.49 kg JOSE Vásquez MD Work Phone: [facility] 11-05-2022 15:06-0500 Diastolic blood pressure 80 mm[Hg] JOSE Vásquez MD Work Phone: [facility] 11-05-2022 15:06-0500 Heart rate 74 /min JOSE Vásquez MD Work Phone: [facility] 11-05-2022 15:06-0500 Respiratory rate 18 /min JOSE Vásquez MD Work Phone: [facility] 11-05-2022 15:06-0500 SaO2% (BldA) [Mass fraction] 94 % JOSE Vásquez MD Work Phone: [facility] 11-05-2022 15:06-0500 Systolic blood pressure 112 mm[Hg] JOSE Vásquez MD Work Phone: [facility] 10-29-2022 15:18-0500 Body height 186.2 cm Andree Hollis APRN.SIGNALS ANALYST Work Phone: [facility] 10-29-2022 15:18-0500 Body temperature 96.69 [degF] Andree Hollis APRN.SIGNALS ANALYST Work Phone: [facility] 10-29-2022 15:18-0500 Body weight 111.13 kg Andree Hollis APRN.SIGNALS ANALYST Work Phone: [facility] 10-29-2022 15:18-0500 Diastolic blood pressure 73 mm[Hg] Andree Hollis APRN.SIGNALS ANALYST Work Phone: [facility] 10-29-2022 15:18-0500 Heart rate 78 /min Andree Hollis APRN.SIGNALS ANALYST Work Phone: [facility] 10-29-2022 15:18-0500 Respiratory rate 16 /min Andree Hollis APRN.SIGNALS ANALYST Work Phone: [facility] 10-29-2022 15:18-0500 SaO2% (BldA) [Mass fraction] 100 % Andree Hollis APRN.SIGNALS ANALYST Work Phone: [facility] 10-29-2022 15:18-0500 Systolic blood pressure 112 mm[Hg] Andree Hollis APRN.CNP Work Phone: [facility] 10-29-2022 14:36-0500 Body temperature 96.69 [degF] Dennis Cheung MD Work Phone: [facility] 10-29-2022 14:36-0500 Body weight 111.13 kg Dennis Cheung MD Work Phone: [facility] 10-29-2022 14:36-0500 Diastolic blood pressure 73 mm[Hg] Dennis Cheung MD Work Phone: [facility] 10-29-2022 14:36-0500 Heart rate 78 /min Dennis Cheung MD Work Phone: [facility] 10-29-2022 14:36-0500 Respiratory rate 16 /min Dennis Cheung MD Work Phone: [facility] 10-29-2022 14:36-0500 SaO2% (BldA) [Mass fraction] 100 % Dennis Cheung MD Work Phone: [facility] 10-29-2022 14:36-0500 Systolic blood pressure 112 mm[Hg] Dennis Cheung MD Work Phone: [facility] 10-24-2022 10:11-0500 Blood Pressure Location ASHLEY TRINIDAD [facility] 10-24-2022 10:11-0500 Diastolic blood pressure 69 mm[Hg] ASHLEY TRINIDAD [facility] 10-24-2022 10:11-0500 Heart rate 70 /min ASHLEY TRINIDAD [facility] 10-24-2022 10:11-0500 Respiratory rate 16 /min ASHLEY TRINIDAD [facility] 10-24-2022 10:11-0500 Systolic blood pressure 117 mm[Hg] ASHLEY TRINIDAD [facility] 10-23-2022 08:11-0500 Body temperature 97.3 [degF] JOSE Vásquez MD Work Phone: [facility] 10-23-2022 08:11-0500 Body weight 112.04 kg JOSE Vásquez MD Work Phone: [facility] 10-23-2022 08:11-0500 Diastolic blood pressure 69 mm[Hg] JOSE Vásquez MD Work Phone: [facility] 10-23-2022 08:11-0500 Heart rate 78 /min JOSE Vásquez MD Work Phone: [facility] 10-23-2022 08:11-0500 Respiratory rate 16 /min JOSE Vásquez MD Work Phone: [facility] 10-23-2022 08:11-0500 SaO2% (BldA) [Mass fraction] 97 % JOSE Vásquez MD Work Phone: [facility] 10-23-2022 08:11-0500 Systolic blood pressure 110 mm[Hg] JOSE Vásquez MD Work Phone: [facility] 10-16-2022 13:33-0500 Body temperature 97.39 [degF] JOSE Vásquez MD Work Phone: [facility] [facility] 10-16-2022 13:33-0500 Body weight 111.4 kg JOSE Vásquez MD Work Phone: [facility] 10-16-2022 13:33-0500 Diastolic blood pressure 60 mm[Hg] JOSE Vásquez MD Work Phone: [facility] 10-16-2022 13:33-0500 Heart rate 69 /min JOSE Vásquez MD Work Phone: [facility] 10-16-2022 13:33-0500 Respiratory rate 18 /min JOSE Vásquez MD Work Phone: [facility] 10-16-2022 13:33-0500 SaO2% (BldA) [Mass fraction] 95 % NA Yesi ARRINGTON Work Phone: [facility] 10-16-2022 13:33-0500 Systolic blood pressure 97 mm[Hg] NA Yesi ARRINGTON Work Phone: [facility] 10-11-2022 14:49-0500 Body height 186.2 cm Andree Hollis APRN.SIGNALS ANALYST Work Phone: [facility] 10-11-2022 14:49-0500 Body temperature 97.59 [degF] Andree Hollis APRN.SIGNALS ANALYST Work Phone: [facility] 10-11-2022 14:49-0500 Body weight 113.22 kg Andree Hollis APRN.SIGNALS ANALYST Work Phone: [facility] 10-11-2022 14:49-0500 Diastolic blood pressure 82 mm[Hg] Andree Hollis APRN.SIGNALS ANALYST Work Phone: [facility] 10-11-2022 14:49-0500 Heart rate 97 /min Andree Hollis APRN.SIGNALS ANALYST Work Phone: [facility] 10-11-2022 14:49-0500 Respiratory rate 16 /min Andree Hollis APRN.SIGNALS ANALYST Work Phone: [facility] 10-11-2022 14:49-0500 SaO2% (BldA) [Mass fraction] 96 % Andree Hollis APRN.SIGNALS ANALYST Work Phone: [facility] 10-11-2022 14:49-0500 Systolic blood pressure 147 mm[Hg] Andree Hollis APRN.SIGNALS ANALYST Work Phone: [facility] 10-03-2022 13:30-0500 Blood Pressure Location Cyndee SANCHEZ [facility] 10-03-2022 13:30-0500 Diastolic blood pressure 70 mm[Hg] Cyndee SANCHEZ [facility] 10-03-2022 13:30-0500 Heart rate 90 /min Cyndee SANCHEZ [facility] 10-03-2022 13:30-0500 Respiratory rate 18 /min Cyndee SANCHEZ [facility] 10-03-2022 13:30-0500 SaO2% (BldA) [Mass fraction] 96 % Cyndee SANCHEZ [facility] 10-03-2022 13:30-0500 Systolic blood pressure 110 mm[Hg] Cyndee SANCHEZ [facility] 10-02-2022 14:30-0500 Body height 186.2 cm Minerva Anderson MD Work Phone: [facility] 10-02-2022 14:30-0500 Body temperature 97.81 [degF] Minerva Anderson MD Work Phone: [facility] 10-02-2022 14:30-0500 Body weight 113.94 kg Minerva Anedrson MD Work Phone: [facility] 10-02-2022 14:30-0500 Diastolic blood pressure 78 mm[Hg] Minerva Anderson MD Work Phone: [facility] 10-02-2022 14:30-0500 Heart rate 83 /min Minerva Anderson MD Work Phone: [facility] 10-02-2022 14:30-0500 Respiratory rate 18 /min Minerva Anderson MD Work Phone: [facility] 10-02-2022 14:30-0500 SaO2% (BldA) [Mass fraction] 97 % Minerva Anderson MD Work Phone: [facility] 10-02-2022 14:30-0500 Systolic blood pressure 113 mm[Hg] Minerva Anderson MD Work Phone: [facility] 09-20-2022 07:56-0500 Body temperature 96.69 [degF] JOSE Vásquez MD Work Phone: [facility] 09-20-2022 07:56-0500 Body weight 113.31 kg JOSE Vásquez MD Work Phone: [facility] 09-20-2022 07:56-0500 Diastolic blood pressure 70 mm[Hg] JOSE Vásquez MD Work Phone: [facility] 09-20-2022 07:56-0500 Heart rate 66 /min JOSE Vásquez MD Work Phone: [facility] 09-20-2022 07:56-0500 Respiratory rate 18 /min JOSE Vásquez MD Work Phone: [facility] 09-20-2022 07:56-0500 SaO2% (BldA) [Mass fraction] 97 % JOSE Vásquez MD Work Phone: [facility] 09-20-2022 07:56-0500 Systolic blood pressure 106 mm[Hg] JOSE Vásquez MD Work Phone: [facility] 09-17-2022 16:03-0500 Body height 186.2 cm Minerva Anderson MD Work Phone: [facility] 09-17-2022 16:03-0500 Body temperature 97.5 [degF] Minerva Anderson MD Work Phone: [facility] 09-17-2022 16:03-0500 Body weight 111.22 kg Minerva Anderson MD Work Phone: [facility] 09-17-2022 16:03-0500 Diastolic blood pressure 72 mm[Hg] Minerva Anderson MD Work Phone: [facility] 09-17-2022 16:03-0500 Heart rate 68 /min Minerva Anderson MD Work Phone: [facility] 09-17-2022 16:03-0500 Respiratory rate 16 /min Minerva Anderson MD Work Phone: [facility] 09-17-2022 16:03-0500 SaO2% (BldA) [Mass fraction] 97 % Minerva Anderson MD Work Phone: [facility] 09-17-2022 16:03-0500 Systolic blood pressure 135 mm[Hg] Minerva Anderson MD Work Phone: [facility] 08-20-2022 08:15-0400 Diastolic blood pressure 101 mm[Hg] Mervat NILL [facility] 08-20-2022 08:15-0400 Heart rate 68 /min Mervat NILL [facility] 08-20-2022 08:15-0400 Respiratory rate 18 /min Mervat NILL [facility] 08-20-2022 08:15-0400 SaO2% (BldA) [Mass fraction] 96 % Mervat NILL [facility] 08-20-2022 08:15-0400 Systolic blood pressure 139 mm[Hg] Mervat NILL [facility] 08-20-2022 08:12-0400 Diastolic blood pressure 97 mm[Hg] Mervat NILL [facility] 08-20-2022 08:12-0400 Heart rate 67 /min Mervat NILL [facility] 08-20-2022 08:12-0400 Respiratory rate 10 /min Mervat NILL [facility] 08-20-2022 08:12-0400 SaO2% (BldA) [Mass fraction] 96 % Mervat NILL [facility] 08-20-2022 08:12-0400 Systolic blood pressure 130 mm[Hg] Mervat NILL [facility] 08-20-2022 08:05-0400 Diastolic blood pressure 92 mm[Hg] Mervat NILL [facility] 08-20-2022 08:05-0400 Heart rate 69 /min Mervat NILL [facility] 08-20-2022 08:05-0400 Respiratory rate 14 /min Mervat NILL [facility] 08-20-2022 08:05-0400 SaO2% (BldA) [Mass fraction] 93 % Mervat NILL [facility] 08-20-2022 08:05-0400 Systolic blood pressure 127 mm[Hg] Mervat NILL [facility] 08-20-2022 07:50-0400 Body temperature 97.7 [degF] Mervat NILL [facility] 08-20-2022 07:45-0400 Respiratory rate 14 /min Mervat NILL [facility] 08-20-2022 07:40-0400 Respiratory rate 13 /min Mervat NILL [facility] 08-20-2022 07:35-0400 Respiratory rate 14 /min Mevrat NILL [facility] 08-20-2022 07:10-0400 Blood Pressure Location Mervat NILL [facility] 08-20-2022 07:10-0400 Body temperature 96.98 [degF] Mervat NILL [facility] 08-14-2022 08:42-0400 Blood Pressure Location Mervat NILL [facility] [place] 08-14-2022 08:42-0400 Diastolic blood pressure 67 mm[Hg] Mervat NILL [facility] [place] 08-14-2022 08:42-0400 Heart rate 63 /min Mervat NILL [facility] [place] 08-14-2022 08:42-0400 Respiratory rate 16 /min Mervat DAVILAL [facility] [place] 08-14-2022 08:42-0400 Systolic blood pressure 114 mm[Hg] Mervat NILL [facility] [place] 05-31-2022 10:53-0400 Blood Pressure Location VALERIE SIDELL [facility] 05-31-2022 10:53-0400 Diastolic blood pressure 70 mm[Hg] VALERIE SIDELL [facility] 05-31-2022 10:53-0400 Heart rate 74 /min VALERIE SIDELL [facility] 05-31-2022 10:53-0400 SaO2% (BldA) [Mass fraction] 96 % VALERIE SIDELL [facility] 05-31-2022 10:53-0400 Systolic blood pressure 114 mm[Hg] VALERIE SIDELL [facility] 04-03-2022 10:55-0400 Blood Pressure Location Cyndee STANG [facility] 04-03-2022 10:55-0400 Diastolic blood pressure 62 mm[Hg] Cyndee STANG [facility] 04-03-2022 10:55-0400 Heart rate 76 /min Cyndee STANG [facility] 04-03-2022 10:55-0400 Respiratory rate 18 /min Cyndee STANG [facility] 04-03-2022 10:55-0400 SaO2% (BldA) [Mass fraction] 96 % Cyndee SANCHEZ [facility] 04-03-2022 10:55-0400 Systolic blood pressure 98 mm[Hg] Cyndee SANCHEZ [facility] Encounters Encounter Date Encounter Type Care Provider Facility Start: 11-21-2023 End: 11-21-2023 ambulatory LORENZO Dailey TOMAS Facility:[facility] Start: 11-05-2023 ambulatory JACKY CLAUDIA Facility:[facility] Start: 10-11-2023 End: 10-11-2023 ambulatory CHELSIE FERNANDO Not Available Start: 10-10-2023 Follow-up encounter Deborah cain MD Work Phone: Colorectal Surgery Comment on above: Encounter for follow -up surveillance of rectal cancer (Primary Dx) Start: 10-10-2023 End: 10-10-2023 [facility] LORENZO Dailey TOMAS Facility:[facility] Start: 10-10-2023 End: 10-10-2023 ambulatory Lab[facility] Arya Work Phone: Hematology/Oncology Comment on above: Rectal cancer (HCC) (Primary Dx) Start: 10-09-2023 End: 10-10-2023 [facility] Lorenzo Dailey TOMAS [place] Start: 10-09-2023 End: 10-09-2023 Pain Management Cyndee Darin [facility] Start: 09-26-2023 Refill Minerva Anderson MD Work Phone: Hematology/Oncology Comment on above: Refill Request Start: 09-05-2023 End: 09-05-2023 ambulatory LORENZO OLSON Facility:[facility] Start: 08-27-2023 Telephone encounter Minerva wong MD Work Phone: Cancer Appts Comment on above: Future Appointment Start: 08-27-2023 End: 08-27-2023 ambulatory LORENZO Dailey TOMAS Facility:[facility] Start: 08-22-2023 End: 08-23-2023 ambulatory Corey MCKEE [place] Start: 08-22-2023 End: 08-22-2023 Patient encounter procedure Corey Michael RYLEE [facility] Start: 08-14-2023 End: 08-14-2023 ambulatory Lorenzo Olson Facility:[facility] Start: 08-14-2023 End: 08-14-2023 ambulatory DO Lorenzo S Tomas Work Phone: [facility] Work Phone: Start: 08-14-2023 End: 08-14-2023 Patient encounter procedure DO Lorenzo Tomas Work Phone: [facility] [address] Work Phone: Start: 07-24-2023 Follow-up encounter Deborah cain MD Work Phone: Colorectal Surgery Comment on above: Encounter for follow -up surveillance of rectal cancer (Primary Dx) Start: 07-16-2023 End: 07-16-2023 ambulatory [facility] Other [facility] [employer] Other Start: 07-16-2023 Office outpatient vi sit 25 minutes [facility] Neurosurgery Start: 07-09-2023 ambulatory DEBORAH NORMAN Facility: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 [employer] Other Start: 06-18-2023 Office outpatient vi sit 15 minutes Valencia Torres [facility] Neurosurgery Start: 06-17-2023 End: 06-27-2023 Pre-admission assessment Corey MCKEE [facility] Start: 06-04-2023 End: 06-05-2023 ambulatory Corey MCKEE Facility:[id number] Start: 05-28-2023 End: 05-28-2023 ambulatory LORENZO OLSON Facility:[facility] Start: 05-28-2023 End: 05-28-2023 Patient encounter procedure Minerva Anderson MD Work Phone: [facility] Start: 05-28-2023 End: 05-28-2023 ambulatory Lab/[facility] [place] Work Phone: Hematology/Oncology Comment on above: Rectal cancer (HCC) Rectal cancer (HCC) (Primary Dx); Neoplasm related pain (acute) (chronic); Rheumatoid arthritis involving multiple sites, unspecified whether rheumatoid factor present (HCC); Acute deep vein thrombosis (DVT) of distal vein of left lower extremity (HCC) Start: 05-23-2023 End: 07-21-2023 ambulatory Bryon Cruz [place] Start: 05-22-2023 End: 05-22-2023 ambulatory Valencia Torres Facility:[facility] Start: 05-22-2023 End: 05-22-2023 ambulatory DO Lorenzo Olson Work Phone: [facility] Work Phone: Start: 05-22-2023 End: 05-22-2023 Patient encounter procedure DO Lorenzo Olson Work Phone: [facility] [address] Work Phone: Start: 05-17-2023 End: 05-18-2023 ambulatory Bryon Cruz [place] Start: 05-14-2023 Telephone encounter Denisha mello RN Work Phone: Hematology/Oncology Comment on above: Care Coordination (O rders ) Start: 05-14-2023 End: 05-14-2023 ambulatory LORENZO OLSON Facility:[facility] Start: 05-07-2023 End: 05-08-2023 ambulatory MD Bryon Cruz [place] Start: 05-07-2023 End: 05-07-2023 Pain Management Bryon Cruz [facility] Start: 05-06-2023 Refill Minerva Anderson MD Work Phone: [facility] Comment on above: Refill Request Start: 05-03-2023 Telephone encounter Deborah cani MD Work Phone: Colorectal Surgery Comment on above: Orders (Flex sig, CE A, MRI, CT) Research Test Engine Operator - O ther Appointment (Pt call ing to let Chelsie know that 07/09, Saturday would be his best option for colonoscopy. ) Start: 04-29-2023 End: 04-30-2023 ambulatory XXXX NONE [place] Start: 04-29-2023 End: 04-29-2023 Patient encounter procedure Cyndee SANCHEZ [facility] Start: 04-18-2023 ambulatory DEBORAH NORMAN Facility:[facility] Start: 04-17-2023 Telephone encounter Denisha mello RN Work Phone: Hematology/Oncology Comment on above: Care Coordination (P otassium Results) Start: 04-16-2023 End: 04-16-2023 ambulatory LORENZO OLSON Facility:[facility] Start: 04-16-2023 End: 04-16-2023 ambulatory Lab/[facility] Hernandezy Work Phone: Hematology/Oncology Comment on above: Rectal cancer (HCC) Start: 04-11-2023 Encounter for other specified special examinations Valencia Torres [facility] Neurosurgery Start: 04-11-2023 Office outpatient ne w 45 minutes Valencia Torres [facility] Start: 04-11-2023 End: 04-11-2023 ambulatory DO Lorenzo Olson Work Phone: [facility] Work Phone: Start: 04-11-2023 End: 04-11-2023 Patient encounter procedure DO Lorenzo Olson Work Phone: [facility] Work Phone: Start: 04-09-2023 ambulatory DEBORAH GOMEZ Facility: [facility] Start: 04-09-2023 End: 04-09-2023 Subsequent hospital visit by physician Deborah Norman MD Work Phone: Procedures Comment on above: Rectal cancer (HCC) [C20] Start: 04-02-2023 End: 04-03-2023 ambulatory Lorenzo OLSON Facility:[facility] Start: 03-26-2023 ambulatory [facility] Provider Paulino pappas Comment on above: Colonoscopy prep ins tructions Start: 03-26-2023 E-mail encounter fro m caregiver [facility] Provider [facility] Start: 03-26-2023 Telephone encounter Deborah cain MD Work Phone: Colorectal Surgery Comment on above: Patient Question Care Coordination (M RI Question) Start: 03-21-2023 End: 03-21-2023 ambulatory LORENZO OLSON Facility:[facility] Start: 03-21-2023 End: 03-21-2023 ambulatory Pema [place] Work Phone: Hematology/Oncology Comment on above: Rectal cancer (HCC) (Primary Dx) Start: 03-20-2023 Telephone encounter Santiago Lema [facility] Work Phone: [facility] Comment on above: Results Start: 03-19-2023 End: 03-19-2023 ambulatory LORENZO OLSON Facility:[facility] Start: 03-19-2023 End: 03-19-2023 Patient encounter procedure Minerva Anderson MD Work Phone: [facility] Start: 03-19-2023 End: 03-19-2023 ambulatory Lab/[facility] Arya Work Phone: Hematology/Oncology Comment on above: Rectal cancer (HCC); Primary hypercoagulable state (HCC); Rheumatoid arthritis involving multiple sites, unspecified whether rheumatoid factor present (HCC) Rectal cancer (HCC) (Primary Dx) Rectal cancer (HCC) (Primary Dx); Primary hypercoagulable state (HCC); Rheumatoid arthritis involving multiple sites, unspecified whether rheumatoid factor present (HCC) Start: 03-18-2023 End: 03-18-2023 [facility] Start: 03-18-2023 End: 03-18-2023 Emergency department patient visit [facility] Start: 03-13-2023 End: 03-13-2023 [facility] LORENZO OLSON Facility:[facility] Start: 03-13-2023 End: 03-14-2023 [facility] LORENZO OLSON Facility:[facility] Start: 03-13-2023 End: 03-13-2023 Patient encounter procedure Dania Vásquez MD Work Phone: Radiation Oncology Comment on above: Rectal cancer (HCC) (Primary Dx); Malignant neoplasm of prostate (HCC) Start: 03-07-2023 End: 03-07-2023 ambulatory LORENZO OLSON Facility:[facility] Start: 03-05-2023 End: 03-05-2023 ambulatory Chair 5 Arya Work Phone: Hematology/Oncology Comment on above: Rectal cancer (HCC) (Primary Dx) Start: 03-01-2023 Telephone encounter Minerva wong MD Work Phone: Hematology/Oncology Comment on above: Lab Orders Start: 02-26-2023 Telephone encounter Samantha Kash itt [facility] Work Phone: [facility] Comment on above: Medication Assistanc e (Approved for Free Xarelto) Start: 02-21-2023 End: 02-21-2023 ambulatory LORENZO OLSON Facility:[facility] Start: 02-21-2023 End: 02-21-2023 ambulatory Chair 20 Arya Work Phone: Hematology/Oncology Comment on above: Rectal cancer (HCC) (Primary Dx) Start: 02-19-2023 End: 02-19-2023 ambulatory MINERVA ANDERSON Facility:[facility] Start: 02-19-2023 End: 02-19-2023 Patient encounter procedure Minerva Anderson MD Work Phone: [facility] Start: 02-19-2023 End: 02-19-2023 ambulatory Minerva Anderson MD Work Phone: Hematology/Oncology Comment on above: Rectal cancer (HCC) (Primary Dx); Acute deep vein thrombosis (DVT) of distal vein of left lower extremity (HCC) Rectal cancer (HCC) (Primary Dx) Rectal cancer (HCC) Start: 02-07-2023 End: 02-07-2023 ambulatory LORENZO OLSON Facility:[facility] Start: 02-07-2023 End: 02-07-2023 Patient encounter procedure Deborah Norman MD Work Phone: Colorectal Surgery Comment on above: Rectal cancer (HCC) (Primary Dx); Malignant neoplasm of rectum (HCC) Start: 02-07-2023 End: 02-07-2023 ambulatory LORENZO OLSON Facility:[facility] Start: 02-07-2023 End: 02-07-2023 ambulatory Chair 20 [place] Work Phone: Hematology/Oncology Comment on above: Rectal cancer (HCC) (Primary Dx) Start: 02-05-2023 End: 02-06-2023 ambulatory LORENZO OLSON Facility:[facility] Start: 02-04-2023 End: 02-04-2023 ambulatory LORENZO OLSON Facility:[facility] Start: 02-04-2023 End: 02-04-2023 Patient encounter procedure Mert Krueger MD Work Phone: Gastroenterology Comment on above: Rectal cancer (HCC) (Primary Dx); Rectal bleeding; Acute deep vein thrombosis (DVT) of distal vein of left lower extremity (HCC); Family history of pancreatic cancer; Family history of primary liver cancer Start: 01-24-2023 End: 01-24-2023 ambulatory LORENZO OLSON Facility:[facility] Start: 01-24-2023 End: 01-24-2023 ambulatory Chair Pema Simon Work Phone: Hematology/Oncology Comment on above: Rectal cancer (HCC) (Primary Dx) Start: 01-23-2023 Refill Celeste gaona [facility] Work Phone: [facility] HB-[facility] Comment on above: Refill Request Care Coordination (D VT; Elijosafat) Start: 01-22-2023 End: 01-23-2023 ambulatory Andree Hollis [place] Start: 01-22-2023 Telephone encounter Denisha mello RN Work Phone: Hematology/Oncology Comment on above: Care Coordination (U S Order) Start: 01-22-2023 End: 01-23-[address] Work Phone: [facility] Start: 01-22-2023 End: 01-22-[address] Nutrition [address] Work Phone: Nutrition Therapy Comment on above: Nutrition Counseling Start: 01-22-2023 End: 01-22-2023 Patient encounter procedure Santiago Kong [facility] Start: 01-22-2023 End: 01-22-2023 ambulatory Lab/[facility] Simon Work Phone: Hematology/Oncology Comment on above: Rectal cancer (HCC) (Primary Dx) Rectal cancer (HCC) (Primary Dx); Leg swelling; Left ankle swelling Start: 01-18-2023 Telephone encounter Minerva wong MD Work Phone: Hematology/Oncology Comment on above: Lab Orders Start: 01-14-2023 Telephone encounter Denisha mello RN Work Phone: Hematology/Oncology Comment on above: Research Test Engine Operator - O ther (Rectal Bleeding) Start: 01-10-2023 End: 01-11-2023 ambulatory SIGNALS ANALYST Cyndee SANCHEZ [place] Start: 01-10-2023 End: 01-10-2023 Patient encounter procedure Cyndee SANCHEZ [facility] Start: 01-10-2023 End: 01-10-2023 ambulatory LORENZO OLSON Facility:[facility] Start: 01-10-2023 End: 01-10-2023 ambulatory Chair 20 [place] Work Phone: Hematology/Oncology Comment on above: Rectal cancer (HCC) (Primary Dx) Start: 01-08-2023 End: 01-08-[address] Work Phone: Nutrition Therapy Comment on above: Nutrition Assessment Start: 01-08-2023 End: 01-08-2023 Patient encounter procedure Minerva Anderson MD Work Phone: [facility] Start: 01-08-2023 End: 01-08-2023 ambulatory Lab/[facility] Arya Work Phone: Hematology/Oncology Comment on above: Rectal cancer (HCC) Rectal cancer (HCC) (Primary Dx) Start: 12-28-2022 Telephone encounter Lucy Goetz RN Work Phone: Hematology/Oncology Comment on above: Care Coordination (C 1D1 treatment follow up call) Start: 12-27-2022 End: 12-28-2022 ambulatory LORENZO OLSON Facility:[facility] Start: 12-27-2022 End: 12-27-2022 ambulatory Chair 20 Arya Work Phone: Hematology/Oncology Comment on above: Rectal cancer (HCC) (Primary Dx) Start: 12-25-2022 End: 12-26-2022 ambulatory Lab/[facility] Arya Work Phone: Hematology/Oncology Comment on above: Rectal cancer (HCC) Rectal cancer (HCC) (Primary Dx) Start: 12-20-2022 End: 12-20-2022 ambulatory Denisha Duarte RN Work Phone: Hematology/Oncology Comment on above: Chemotherapy Treatme nt (Oxaliplatin, Leucovorin, 5FU) Start: 12-20-2022 Telephone encounter Celeste Bray [facility] Work Phone: Hematology/Oncology Comment on above: Erroneous encounter- disregard Start: 12-19-2022 End: 12-19-2022 ambulatory [facility] Facility:[facility] Start: 12-19-2022 Telephone encounter Milton Ward RN [facility] Radiology Procedure Comment on above: Radiology Pre Proced ure Instructions Start: 12-18-2022 Patient encounter status Minerva Anderson MD Work Phone: Hematology/Oncology Start: 12-18-2022 Telephone encounter Minerva wong MD Work Phone: Hematology/Oncology Comment on above: Lab Orders Start: 12-17-2022 End: 12-17-2022 [facility] Start: 12-17-2022 End: 12-17-2022 ambulatory Minerva Anderson MD Work Phone: Hematology/Oncology Comment on above: Rectal cancer (HCC) (Primary Dx); Lung nodules Start: 12-17-2022 End: 12-17-2022 Patient encounter procedure Minerva Anderson MD Work Phone: [facility] Start: 12-17-2022 Telephone encounter Minerva wong MD Work Phone: [facility] Comment on above: Referral Information (Port placement) Start: 12-10-2022 End: 12-10-2022 [facility] Facility:[facility] Start: 12-10-2022 End: 12-10-2022 [facility] Facility:[facility] Start: 11-20-2022 Telephone encounter Katerina Hargrove RN Hematology/Oncology Comment on above: Results Start: 11-19-2022 End: 11-19-2022 ambulatory Minerva Anderson MD Work Phone: Hematology/Oncology Comment on above: Rectal cancer (HCC) (Primary Dx); Lung nodules; Cancer related pain Start: 11-19-2022 End: 11-19-2022 Patient encounter procedure Dania Vásquez MD Work Phone: Radiation Oncology Comment on above: Rectal cancer (HCC) (Primary Dx) Start: 11-19-2022 Radiation Oncology Note Dania Vásquez MD Work Phone: Radiation Oncology Comment on above: Completion Note Start: 11-15-2022 End: 11-15-2022 Patient encounter procedure Dania Vásquez MD Work Phone: Radiation Oncology Comment on above: Rectal cancer (HCC) (Primary Dx) Start: 11-12-2022 End: 11-12-2022 Patient encounter procedure Dania Vásquez MD Work Phone: Radiation Oncology Comment on above: Rectal cancer (HCC) (Primary Dx) Start: 11-08-2022 End: 11-08-2022 Patient encounter procedure Lab/[facility] [place] Work Phone: Radiation Oncology Comment on above: Rectal cancer (HCC) Start: 11-07-2022 Telephone encounter Andree eaton APRN.SIGNALS ANALYST Work Phone: Radiation Oncology Comment on above: Pain Orders Start: 11-05-2022 End: 11-05-2022 Patient encounter procedure Dania Vásquez MD Work Phone: Radiation Oncology Comment on above: Rectal cancer (HCC) (Primary Dx) Start: 10-29-2022 End: 10-29-2022 ambulatory Andree Hollis APRN.SIGNALS ANALYST Work Phone: Hematology/Oncology Comment on above: Rectal cancer (HCC) (Primary Dx); Abnormal PET scan of lung; Pulmonary embolus with infarction (HCC); Rheumatoid arthritis involving multiple sites, unspecified whether rheumatoid factor present (HCC) Start: 10-29-2022 End: 10-29-2022 Patient encounter procedure Andree Hollis APRN.SIGNALS ANALYST Work Phone: [facility] Comment on above: Rectal cancer (HCC) (Primary Dx) Start: 10-24-2022 Refill Oliva Brewer [facility] Start: 10-24-2022 End: 10-24-2022 Patient encounter procedure ASHLEY TRINIDAD [facility] Start: 10-23-2022 End: 10-23-2022 Patient encounter procedure Dania Vásquez MD Work Phone: Radiation Oncology Comment on above: Rectal adenocarcinom a (HCC) Start: 10-19-2022 End: 10-19-[address] Work Phone: [facility] Start: 10-19-2022 End: 10-19-20[address] RD Work Phone: Nutrition Therapy Comment on above: Nutrition Counseling Start: 10-16-2022 End: 10-16-2022 Patient encounter procedure Dania Vásquez MD Work Phone: Radiation Oncology Comment on above: Rectal adenocarcinom a (HCC) (Primary Dx) Start: 10-11-2022 End: 10-11-2022 ambulatory Andree Hollis APRN.SIGNALS ANALYST Work Phone: Hematology/Oncology Comment on above: Rectal cancer (HCC) (Primary Dx); Pulmonary embolus with infarction (HCC) Start: 10-11-2022 End: 10-11-2022 Patient encounter procedure Andree Hollis APRN.SIGNALS ANALYST Work Phone: [facility] Start: 10-11-2022 Telephone encounter Denisha Duarte Hematology/Oncology Comment on above: Care Coordination (O ral Anti-Cancer Agent Follow Up) Start: 10-10-2022 End: 10-10-2022 ambulatory LORENZO OLSON Facility:[facility] Start: 10-09-2022 Telephone encounter Hang garay MD Work Phone: [facility] Endoscopy - ENDO Comment on above: Appointment Start: 10-08-2022 End: 10-08-2022 ambulatory LORENZOSABA OLSON Facility:[facility] Start: 10-08-2022 End: 10-08-2022 ambulatory Hang Maier MD Work Phone: Pulmonology Comment on above: Adenopathy (Primary Dx); Rectal adenocarcinoma (HCC); Rheumatoid arthritis involving multiple sites, unspecified whether rheumatoid factor present (HCC) Start: 10-08-2022 End: 10-08-2022 Telemedicine consultation with patient Hang Maier MD Work Phone: [facility] Start: 10-08-2022 End: 10-08-2022 Patient encounter procedure G Saeed Vásquez MD Work Phone: Radiation Oncology Comment on above: Rectal adenocarcinom a (HCC) (Primary Dx) Start: 10-08-2022 End: 10-08-2022 Nursing evaluation of patient and report Ma Nurse Juan Carlos Sand Work Phone: Hematology/Oncology Comment on above: Adenopathy Start: 2022 Orders Only Hang cain MD Work Phone: Pulmonary Medicine Comment on above: Adenopathy (Primary Dx) Bronchoscopy Schedul ing Care Coordination (M edication Question) Care Coordination (B ronchoscopy) Start: 10-03-2022 End: 10-03-2022 Patient encounter procedure Cyndee SANCHEZ [facility] Start: 10-03-2022 End: 10-03-2022 Patient encounter procedure Cyndee SANCHEZ [facility] Start: 10-02-2022 End: 10-02-2022 Patient encounter procedure Minerva Anderson MD Work Phone: [facility] Start: 10-02-2022 End: 10-02-2022 ambulatory Denisha Duarte RN Work Phone: Hematology/Oncology Comment on above: Oral Anti-cancer Age nt Education (Capecitabine) Rectal cancer (HCC) (Primary Dx); Abnormal PET scan of lung Start: 10-02-2022 Telephone encounter Denisha Duarte Hematology/Oncology Comment on above: Care Coordination (M edication Start Date - Capecitabine) Start: 10-01-2022 End: 10-01-2022 ambulatory Lorenzosaba Olson Facility:[facility] Start: 10-01-2022 End: 10-01-2022 ambulatory Lorenzo Olson Work Phone: [facility] Work Phone: Start: 10-01-2022 End: 10-01-2022 Patient encounter procedure Lorenzo Olson Work Phone: [facility] [place] Start: 10-01-2022 Telephone encounter Denisha Duarte Hematology/Oncology Comment on above: Care Coordination (A ntiemetics) Start: 09-28-2022 Telephone encounter Dania Vásquez MD Work Phone: Radiation Oncology Comment on above: Cough Start: 09-26-2022 Telephone encounter Dania Vásquze MD Work Phone: Radiation Oncology Comment on above: Appointment Social Work Services Start: 09-25-2022 End: 09-25-[address] Work Phone: [facility] Start: 09-25-2022 End: 09-25-[address] Work Phone: Nutrition Therapy Comment on above: Nutrition Assessment Start: 09-25-2022 Telephone encounter Denisha Duarte Hematology/Oncology Comment on above: Care Coordination (T reatment Planning) Start: 09-24-2022 End: 09-24-2022 Patient encounter procedure Dania Vásquez MD Work Phone: Radiation Oncology Comment on above: Rectal adenocarcinom a (HCC) (Primary Dx) Start: 09-24-2022 Radiation Oncology Note Dania Vásquez MD Work Phone: Radiation Oncology Comment on above: Treatment Planning Start: 09-20-2022 ambulatory Sonam Horowitz RN Radiati on Oncology Comment on above: Patient Education Start: 09-20-2022 Telephone encounter Minerva wong MD Work Phone: [facility] Comment on above: Future Appointment Start: 09-20-2022 End: 09-20-2022 Patient encounter procedure Dania Vásquez MD Work Phone: Radiation Oncology Comment on above: Rectal adenocarcinom a (HCC) (Primary Dx) Start: 09-18-2022 Telephone encounter Minerva wong MD Work Phone: [facility] Comment on above: Call Back 48 Hours Start: 09-17-2022 End: 09-17-2022 ambulatory Minerva Anderson MD Work Phone: Hematology/Oncology Comment on above: Rectal cancer (HCC) (Primary Dx); Rheumatoid arthritis involving multiple sites, unspecified whether rheumatoid factor present (HCC) Start: 09-17-2022 End: 09-17-2022 Patient encounter procedure Minerva Anderson MD Work Phone: [place] Start: 09-17-2022 Chart abstracting Minerva del cid MD Work Phone: Hematology/Oncology Start: 09-11-2022 End: 09-12-2022 ambulatory [facility] Start: 09-06-2022 Telephone encounter Minal Cain Hematology/Oncology Comment on above: Appointment Start: 09-05-2022 End: 09-05-2022 ambulatory [facility] Start: 08-22-2022 End: 08-22-2022 ambulatory [facility] Start: 08-20-2022 End: 08-20-2022 Patient encounter procedure Mervat SLAUGHTER [facility] Start: 08-14-2022 End: 08-14-2022 Patient encounter procedure Mervat SLAUGHTER [facility] [place] Start: 08-06-2022 End: 02-14-2023 Recurring JONAH SOTOKAMISEBASTIEN [facility] Start: 05-31-2022 End: 05-31-2022 Lab Drop off VALERIE ROBETRS [facility] Start: 05-31-2022 End: 05-31-2022 Patient encounter procedure VALERIE ROBERTS [facility] [place] Start: 04-30-2022 End: 07-29-2022 Recurring JONAH VELIZELAINESEBASTIEN [facility] Start: 04-03-2022 End: 04-03-2022 Patient encounter procedure Cyndee SANCHEZ [facility] Start: 11-07-2021 End: 02-05-2022 Patient encounter procedure Lorenzo OLSON [facility] Start: 04-04-2021 Encounter for preprocedural laboratory examination [facility] Start: 04-03-2021 End: 04-03-[address] LORENZO OLSON Facility:[facility] Start: 03-31-2021 Encounter for preprocedural cardiovascular examination [facility] Start: 03-31-2021 Encounter for preprocedural laboratory examination [facility] Start: 03-28-2021 End: 03-29-[address] LORENZO OLSON Facility:[facility] Start: 03-28-2021 End: 03-29-2021 Encounter for preprocedural laboratory examination DR LORENZO OLSON Facility:[facility] Start: 03-23-2021 End: 03-24-2021 ambulatory SONAM ZAMBRANO Facility:[facility] Start: 03-23-2021 End: 03-24-2021 Encounter for preprocedural cardiovascular examination SONAM ZAMBRANO Facility:[facility] Start: 02-02-2021 End: 02-03-2021 ambulatory LINK DEXTER Facility:[facility] Procedures Date Procedure Procedure Detail Performing Clinician Start: 08-14-2023 MR lumbar spine wo con DO Lorenzo Tomas Work Phone: Start: 07-09-2023 Sigmoidoscopy flx dx w/collj spec br/wa if pfrmd Deborah Norman MD Work Phone: Start: 06-20-2023 Blood count complete auto&auto difrntl wbc Kari Key PA-C Work Phone: Start: 05-28-2023 Blood count complete auto&auto difrntl wbc Minerva Anderson MD Work Phone: Start: 05-22-2023 MRI of cervical spin e with contrast DO Lorenzo Tomas Work Phone: Start: 04-16-2023 Blood count complete auto&auto difrntl wbc Minerva Anderson MD Work Phone: Start: 04-11-2023 Plain x-ray of pelvi s and lower extremity DO Lorenzo Tomas Work Phone: Start: 04-11-2023 X-ray of cervical spine DO Lorenzo Olson Work Phone: Start: 04-09-2023 Level iv surg pathol ogy gross&microscopic exam Deborah Norman MD Work Phone: Start: 04-09-2023 Colonoscopy flx dx w /collj spec when pfrmd Deborah Norman MD Work Phone: Start: 04-09-2023 Colonoscopy Lab[facility] Work Phone: Start: 03-19-2023 Blood count complete auto&auto difrntl wbc Andree Hollis APRN.SIGNALS ANALYST Work Phone: Start: 05-02-2023 Blood count complete auto&auto difrntl wbc Minerva Anderson MD Work Phone: Start: 01-08-2023 Basic metabolic pane l calcium total Minerva Anderson MD Work Phone: Start: 12-25-2022 Blood count complete auto&auto difrntl wbc Minerva Anderson MD Work Phone: Start: 12-17-2022 Blood count complete auto&auto difrntl wbc Minerva Anderson MD Work Phone: Start: 11-08-2022 Blood [...] REPAIR WITH MESH Start: 05-23-2016 Cystoscopy Lorenzo CODY ANT Start: 03-22-2016 Extracorporeal shock wave lithotripsy of calculus of kidney Lorenzo OLSON Comment on above: 01/05/2016, 03/08/20 16 Start: 12-22-2015 Extracorporeal shock wave lithotripsy of calculus of kidney Lorenzo TOMAS Comment on above: 12/15/2015 Start: 09-28-2015 Cystoscopy Lorenzo GR ANT Cervical arthrodesis Lorenzo OLSON Cervical arthrodesis Mervat SLAUGHTER Colonoscopy Lorenzo TOMAS Hammer toe operation Lorenzo OLSON Hemorrhoidectomy Mervat Dumont Plan of Treatment Date Care Activity Detail Author Start: 07-09-2028 Colorectal Cancer Screening Colorectal Cancer Screening [facility] Start: 07-09-2028 Screening for malign ant neoplasm of colon [facility] Start: 07-09-2028 SIGMOIDOSCOPY SIGMOIDOSCOPY [facility] Start: 08-27-2026 Diabetes Screening Diabetes Screenin [facility] Start: 06-20-2026 DIABETES SCREEN DIABETES SCREEN [facility] Start: 06-20-2026 Diabetes Screening Diabetes Screenin g [facility] Start: 05-28-2026 [facility] Start: 05-14-2026 DIABETES SCREEN DIABETES SCREEN [facility] Start: 04-16-2026 DIABETES SCREEN DIABETES SCREEN [facility] Start: 03-19-2026 DIABETES SCREEN DIABETES SCREEN [facility] Start: 03-05-2026 DIABETES SCREEN DIABETES SCREEN [facility] Start: 02-19-2026 DIABETES SCREEN [facility] Start: 02-05-2026 DIABETES SCREEN DIABETES SCREEN [facility] Start: 01-22-2026 DIABETES SCREEN DIABETES SCREEN [facility] Start: 01-08-2026 DIABETES SCREEN DIABETES SCREEN [facility] Start: 12-25-2025 DIABETES SCREEN DIABETES SCREEN [facility] Start: 12-17-2025 DIABETES SCREEN DIABETES SCREEN [facility] Start: 11-19-2025 DIABETES SCREEN DIABETES SCREEN [facility] Start: 10-29-2025 DIABETES SCREEN DIABETES SCREEN [facility] Start: 10-11-2025 DIABETES SCREEN DIABETES SCREEN [facility] Start: 10-02-2025 DIABETES SCREEN DIABETES SCREEN [facility] Start: 09-17-2025 DIABETES SCREEN [facility]ET[facility]CREEN [facility] Start: 04-09-2024 Colonoscopy COLONOSCOPY [facility] Start: 04-09-2024 COLORECTAL CANCER SCREENING COLORECTAL CANCER SCREENING [facility] Start: 04-09-2024 Screening for malign ant neoplasm of colon Colonoscopy [facility] Start: 01-03-2024 ambulatory Ambulatory Facility:[facility] Start: 09-04-2023 Covid-19 Vaccine () Covid-19 Vaccine () [facility] Start: 08-24-2023 End: 10-24-2023 Carcinoembryonic Ag [Mass/volume] in Serum or Plasma CEA BLD Lab Routine Encounter for follow-up surveillance of rectal cancer Expected: 08/24/2023 (Approximate), Expires: 10/24/2023 [facility] Work Phone: Comment on above: Expected: 08/24/2023 (Approximate), Expires: 10/24/2023 Start: 08-03-2023 End: 10-03-2023 Carcinoembryonic Ag [Mass/volume] in Serum or Plasma CEA BLD Lab Routine Encounter for follow-up surveillance of rectal cancer Expected: 08/03/2023, Expires: 10/03/2023 [facility] Work Phone: Comment on above: Expected: 08/03/2023 , Expires: 10/03/2023 Start: 06-21-2023 Covid-19 Vaccine () Covid-19 Vaccine () [facility] Start: 06-21-2023 Influenza vaccination C [facility] Start: 06-20-2023 End: 08-20-2023 Carcinoembryonic Ag [Mass/volume] in Serum or Plasma [facility] Work Phone: Comment on above: Expected: 06/20/2023 , Expires: 08/20/2023 Start: 06-20-2023 End: 08-20-2023 CBC W Auto Differential panel - Blood CBC + DIFF Lab Routine Rectal cancer (HCC) Expected: 06/20/2023, Expires: 08/20/2023 [facility] Work Phone: Comment on above: Expected: 06/20/2023 , Expires: 08/20/2023 Start: 06-20-2023 End: 08-20-2023 Comprehensive metabolic 2000 panel - Serum or Plasma COMP METABOLIC PANEL Lab Routine Rectal cancer (HCC) Expected: 06/20/2023, Expires: 08/20/2023 [facility] Work Phone: Comment on above: Expected: 06/20/2023 , Expires: 08/20/2023 Start: 06-20-2023 End: 08-20-2023 Magnesium [Mass/volume] in Serum or Plasma MAGNESIUM BLD Lab Routine Rectal cancer (HCC) Expected: 06/20/2023, Expires: 08/20/2023 [facility] Work Phone: Comment on above: Expected: 06/20/2023 , Expires: 08/20/2023 Start: 05-22-2023 MR Cervical spine WO and W contrast IV [facility] Start: 05-22-2023 MRI of cervical spin e with contrast MR cervical spine wo/w con [facility] Start: 03-05-2023 End: 05-05-2023 Carcinoembryonic Ag [Mass/volume] in Serum or Plasma CEA BLD Lab Routine Rectal cancer (HCC) Expected: 03/05/2023, Expires: 05/05/2023 [facility] Work Phone: Comment on above: Expected: 03/05/2023 , Expires: 05/05/2023 Start: 03-05-2023 End: 05-05-2023 CBC W Auto Differential panel - Blood CBC + DIFF Lab Routine Rectal cancer (HCC) Expected: 03/05/2023, Expires: 05/05/2023 [facility] Work Phone: Comment on above: Expected: 03/05/2023 , Expires: 05/05/2023 Start: 03-05-2023 End: 05-05-2023 Comprehensive metabolic 2000 panel - Serum or Plasma COMP METABOLIC PANEL Lab Routine Rectal cancer (HCC) Expected: 03/05/2023, Expires: 05/05/2023 [facility] Work Phone: Comment on above: Expected: 03/05/2023 , Expires: 05/05/2023 Start: 02-07-2023 End: 04-09-2023 CBC W Auto Differential panel - Blood CBC + DIFF Lab Routine Leg swelling Rectal cancer (HCC) Left ankle swelling Expected: 02/07/2023, Expires: 04/09/2023 [facility] Work Phone: Comment on above: Expected: 02/07/2023 , Expires: 04/09/2023 Start: 02-07-2023 End: 04-09-2023 Comprehensive metabolic 2000 panel - Serum or Plasma COMP METABOLIC PANEL Lab Routine Leg swelling Rectal cancer (HCC) Left ankle swelling Expected: 02/07/2023, Expires: 04/09/2023 [facility] Work Phone: Comment on above: Expected: 02/07/2023 , Expires: 04/09/2023 Start: 01-18-2023 End: 03-20-2023 Carcinoembryonic Ag [Mass/volume] in Serum or Plasma CEA BLD Lab Routine Rectal cancer (HCC) Expected: 01/18/2023, Expires: 03/20/2023 [facility] Work Phone: Comment on above: Expected: 01/18/2023 , Expires: 03/20/2023 Start: 01-18-2023 End: 03-20-2023 CBC W Auto Differential panel - Blood CBC + DIFF Lab Routine Rectal cancer (HCC) Expected: 01/18/2023, Expires: 03/20/2023 [facility] Work Phone: Comment on above: Expected: 01/18/2023 , Expires: 03/20/2023 Start: 01-18-2023 End: 03-20-2023 Comprehensive metabolic 2000 panel - Serum or Plasma COMP METABOLIC PANEL Lab Routine Rectal cancer (HCC) Expected: 01/18/2023, Expires: 03/20/2023 [facility] Work Phone: Comment on above: Expected: 01/18/2023 , Expires: 03/20/2023 Start: 12-25-2022 End: 02-24-2023 CBC W Auto Differential panel - Blood CBC + DIFF Lab Routine Rectal cancer (HCC) Expected: 12/25/2022, Expires: 02/24/2023 [facility] Work Phone: Comment on above: Expected: 12/25/2022 , Expires: 02/24/2023 Start: 12-25-2022 End: 02-24-2023 Comprehensive metabolic 2000 panel - Serum or Plasma COMP METABOLIC PANEL Lab Routine Rectal cancer (HCC) Expected: 12/25/2022, Expires: 02/24/2023 [facility] Work Phone: Comment on above: Expected: 12/25/2022 , Expires: 02/24/2023 Start: 11-21-2022 End: 01-21-2023 Carcinoembryonic Ag [Mass/volume] in Serum or Plasma CEA BLD Lab Routine Rectal cancer (HCC) Abnormal PET scan of lung Pulmonary embolus with infarction (HCC) Rheumatoid arthritis involving multiple sites, unspecified whether rheumatoid factor present (HCC) Expected: 11/21/2022, Expires: 01/21/2023 [facility] Work Phone: Comment on above: Expected: 11/21/2022 , Expires: 01/21/2023 Start: 11-21-2022 End: 01-21-2023 CBC W Auto Differential panel - Blood CBC + DIFF Lab Routine Rectal cancer (HCC) Abnormal PET scan of lung Pulmonary embolus with infarction (HCC) Rheumatoid arthritis involving multiple sites, unspecified whether rheumatoid factor present (HCC) Expected: 11/21/2022, Expires: 01/21/2023 [facility] Work Phone: Comment on above: Expected: 11/21/2022 , Expires: 01/21/2023 Start: 11-21-2022 End: 01-21-2023 Comprehensive metabolic 2000 panel - Serum or Plasma COMP METABOLIC PANEL Lab Routine Rectal cancer (HCC) Abnormal PET scan of lung Pulmonary embolus with infarction (HCC) Rheumatoid arthritis involving multiple sites, unspecified whether rheumatoid factor present (HCC) Expected: 11/21/2022, Expires: 01/21/2023 [facility] Work Phone: Comment on above: Expected: 11/21/2022 , Expires: 01/21/2023 Start: 11-01-2022 End: 01-01-2023 Carcinoembryonic Ag [Mass/volume] in Serum or Plasma CEA BLD Lab Routine Pulmonary embolus with infarction (HCC) Rectal cancer (HCC) Expected: 11/01/2022, Expires: 01/01/2023 [facility] Work Phone: Comment on above: Expected: 11/01/2022 , Expires: 01/01/2023 Start: 11-01-2022 End: 01-01-2023 CBC W Auto Differential panel - Blood CBC + DIFF Lab Routine Pulmonary embolus with infarction (HCC) Rectal cancer (HCC) Expected: 11/01/2022, Expires: 01/01/2023 [facility] Work Phone: Comment on above: Expected: 11/01/2022 , Expires: 01/01/2023 Start: 11-01-2022 End: 01-01-2023 Comprehensive metabolic 2000 panel - Serum or Plasma COMP METABOLIC PANEL Lab Routine Pulmonary embolus with infarction (HCC) Rectal cancer (HCC) Expected: 11/01/2022, Expires: 01/01/2023 [facility] Work Phone: Comment on above: Expected: 11/01/2022 , Expires: 01/01/2023 Start: 10-21-2022 ADVANCE DIRECTIVE DISCUSSION ADVANCE DIRECTIVE DISCUSSION [facility] Start: 10-21-2022 DEPRESSION ASSESSMENT DEPRESSION ASS ESSMENT [facility] Start: 10-01-2022 MR Abdomen WO and W contrast IV [facility] Start: 10-01-2022 MRI of abdomen with contrast MR abdomen wo/w con [facility] Start: 09-17-2022 End: 11-17-2022 Carcinoembryonic Ag [Mass/volume] in Serum or Plasma [facility] Work Phone: Comment on above: Expected: 09/17/2022 , Expires: 11/17/2022 Start: 09-17-2022 End: 11-17-2022 CBC W Auto Differential panel - Blood CBC + DIFF Lab Routine Rectal cancer (HCC) Expected: 09/17/2022, Expires: 11/17/2022 [facility] Work Phone: Comment on above: Expected: 09/17/2022 , Expires: 11/17/2022 Start: 09-17-2022 End: 11-17-2022 Comprehensive metabolic 2000 panel - Serum or Plasma COMP METABOLIC PANEL Lab Routine Rectal cancer (HCC) Expected: 09/17/2022, Expires: 11/17/2022 [facility] Work Phone: Comment on above: Expected: 09/17/2022 , Expires: 11/17/2022 Start: 06-21-2022 Influenza vaccination INFLUENZA (#1) [facility] Start: 11-15-2021 COVID-19 VACCINE (4 - Booster) COVID-19 VACCINE (4 - Booster) [facility] Start: 11-15-2021 COVID-19 VACCINE (6 - Booster) COVID-19 VACCINE (6 - Booster) [facility] Start: 11-15-2021 COVID-19 VACCINE (6 - Mixed Product risk series) COVID-19 VACCINE (6 - Mixed Product risk series) [facility] Start: 10-21-2021 ADVANCE DIRECTIVE DISCUSSION ADVANCE DIRECTIVE DISCUSSION [facility] Start: 10-21-2021 DEPRESSION ASSESSMENT DEPRESSION ASS ESSMENT [facility] Start: 08-04-2021 DIABETES SCREEN DIABETES SCREEN [facility] Start: 02-17-2021 COVID-19 VACCINE (3 - Booster for Pfizer series) COVID-19 VACCINE (3 - Booster for Pfizer series) [facility] Start: 11-19-2020 SHINGRIX VACCINE (2 of 2) NICOLAS GRIX VACCINE (2 of 2) [facility] Start: 2017 PNEUMOCOCCAL: 65+ (1 - PCV) PNEUMOCOCCAL: 65+ (1 - PCV) [facility] Start: 2012 RSV Vaccine (1 - 1-d ose 60+ series) RSV Vaccine (1 - 1-dose 60+ series) [facility] Start: 2002 SHINGRIX VACCINE (1 of 2) NICOLAS GRIX VACCINE (1 of 2) [facility] Start: 1997 COLOGUARD (FIT-DNA) COLOGUARD (FIT-D NA) [facility] [facility] Start: 1997 Colonoscopy COLONOSCOPY [facility] Start: 1997 COLORECTAL CANCER SCREENING COLORECTAL CANCER SCREENING [facility] Start: [address] COLONOGRAPHY [facility] Start: 1997 FECAL OCCULT BLOOD FECAL OCCULT BLOO D [facility] Start: 1997 Screening for malign ant neoplasm of colon [facility] Start: 1997 SIGMOIDOSCOPY SIGMOIDOSCOPY [facility] Start: 1987 Lipid 1996 panel - S regina or Plasma Lipid Screening [facility] Start: 1987 Lipid panel Lipid Screening [facility] Start: 1987 LIPID SCREEN LIPID SCREEN [facility] Start: 1971 Urine microalbumin profile [facility] Start: 1970 HEPATITIS C SCREENING HEPATITIS C [facility] Start: 1970 Hepatitis C screening Hepatitis C [facility] Carcinoembryonic Ag [Mass/volume] in Serum or Plasma CEA BLD Lab Routine Rectal cancer (HCC) Primary hypercoagulable state (HCC) Rheumatoid arthritis involving multiple sites, unspecified whether rheumatoid factor present (HCC) 03/19/2023 8:23 AM EDT [facility] Work Phone: Carcinoembryonic Ag [Mass/volume] in Serum or Plasma CEA BLD Lab Routine Rectal cancer (HCC) 04/16/2023 8:53 AM EDT [facility] Work Phone: Carcinoembryonic Ag [Mass/volume] in Serum or Plasma CEA BLD Lab Routine Rectal cancer (HCC) 05/28/2023 9:15 AM T [facility] Work Phone: End: 10-09-2024 Carcinoembryonic Ag [Mass/volume] in Serum or Plasma CEA BLD Lab Routine Encounter for follow-up surveillance of rectal cancer Every 3 months for 4 Occurrences starting 10/10/2023 until 10/09/2024 [facility] Work Phone: Comment on above: Every 3 months for 4 Occurrences starting 10/10/2023 until 10/09/2024 End: 12-18-2022 CBC W Auto Differential panel - Blood CBC + DIFF Lab Routine Rectal cancer (HCC) Once per week for 6 Occurrences starting 11/07/2022 until 12/18/2022 [facility] Work Phone: Comment on above: Once per week for 6 Occurrences starting 11/07/2022 until 12/18/2022 End: 02-08-2024 COLONOSCOPY DIAGNOSTIC COLONOSCOPY DIAGNOSTIC Endoscopy Routine Rectal cancer (HCC) 1 Occurrences starting 02/07/2023 until 02/08/2024 [facility] Work Phone: Comment on above: 1 Occurrences starti ng 02/07/2023 until 02/08/2024 End: 12-19-2023 Ct abdomen & pelvis w/contrast material CT ABD/PEL W IVCON Radiology Routine Lung nodules Rectal cancer (HCC) 1 Occurrences starting 11/19/2022 until 12/19/2023 [facility] Work Phone: Comment on above: 1 Occurrences starti ng 11/19/2022 until 12/19/2023 End: 06-01-2024 Ct abdomen w/contrast material CT ABDOMEN W IVCON Radiology Routine Malignant neoplasm of rectum (HCC) 1 Occurrences starting 05/03/2023 until 06/01/2024 [facility] Work Phone: Comment on above: 1 Occurrences starti ng 05/03/2023 until 06/01/2024 End: 07-24-2024 Ct abdomen w/contrast material CT ABDOMEN W IVCON Radiology Routine Malignant neoplasm of rectum (HCC) 1 Occurrences starting 06/25/2023 until 07/24/2024 [facility] Work Phone: Comment on above: 1 Occurrences starti ng 06/25/2023 until 07/24/2024 End: 12-19-2023 CT CHEST W IVCON CT CHEST W IVCON Radiology Routine Lung nodules 1 Occurrences starting 11/19/2022 until 12/19/2023 [facility] Work Phone: Comment on above: 1 Occurrences starti ng 11/19/2022 until 12/19/2023 End: 06-01-2024 CT CHEST W IVCON CT CHEST W IVCON Radiology Routine Malignant neoplasm of rectum (HCC) 1 Occurrences starting 05/03/2023 until 06/01/2024 [facility] Work Phone: Comment on above: 1 Occurrences starti ng 05/03/2023 until 06/01/2024 End: 07-24-2024 CT CHEST W IVCON CT CHEST W IVCON Radiology Routine Malignant neoplasm of rectum (HCC) 1 Occurrences starting 06/25/2023 until 07/24/2024 [facility] Work Phone: Comment on above: 1 Occurrences starti ng 06/25/2023 until 07/24/2024 CT SIM PLANNING RADI ATION ONCOLOGY CT SIM PLANNING RADIATION ONCOLOGY Radiology Routine Rectal adenocarcinoma (HCC) Ordered: 09/24/2022 [facility] Work Phone: Comment on above: Ordered: 09/24/2022 End: 2023 ECG COMPLETE ECG COMPLETE ECG Routine Adenopathy 1 Occurrences starting 2022 until 2023 [facility] Work Phone: Comment on above: 1 Occurrences starti ng 2022 until 2023 IR PORTOCATH PLACEMENT IR PORTOC ATH PLACEMENT Radiology Routine Rectal cancer (HCC) Ordered: 12/17/2022 [facility] Work Phone: Comment on above: Ordered: 12/17/2022 End: 10-17-2023 Mri abdomen w/o & w/contrast material MRI ABDOMEN WO/W IVCON Radiology Routine Rectal cancer (HCC) 1 Occurrences starting 09/17/2022 until 10/17/2023 [facility] Work Phone: Comment on above: 1 Occurrences starti ng 09/17/2022 until 10/17/2023 End: 03-08-2024 Mri pelvis w/o & w/contrast material MRI RECTUM WO/W IVCON Radiology Routine Malignant neoplasm of rectum (HCC) 1 Occurrences starting 02/07/2023 until 03/08/2024 [facility] Work Phone: Comment on above: 1 Occurrences starti ng 02/07/2023 until 03/08/2024 End: 06-01-2024 Mri pelvis w/o & w/contrast material MRI RECTUM WO/W IVCON Radiology Routine Malignant neoplasm of rectum (HCC) 1 Occurrences starting 05/03/2023 until 06/01/2024 [facility] Work Phone: Comment on above: 1 Occurrences starti ng 05/03/2023 until 06/01/2024 End: 10-17-[address] attenuation skull base mid-thigh NM PET/CT SKULL-THIGH INITIAL Radiology Routine Rectal cancer (HCC) 1 Occurrences starting 09/17/2022 until 10/17/2023 [facility] Work Phone: Comment on above: 1 Occurrences starti ng 09/17/2022 until 10/17/2023 SARS-CoV-2 (COVID-19 ) RNA [Presence] in Respiratory specimen by MIGUE with probe detection SELF CHECK COVID Microbiology Routine Adenopathy Ordered: 2022 [facility] Work Phone: Comment on above: Ordered: 2022 End: 05-03-2024 SIGMOIDOSCOPY SIGMOIDOSCOPY Endoscopy Routine Encounter for follow-up surveillance of rectal cancer 1 Occurrences starting 05/03/2023 until 05/03/2024 [facility] Work Phone: Comment on above: 1 Occurrences starti ng 05/03/2023 until 05/03/2024 End: 07-24-2024 SIGMOIDOSCOPY SIGMOIDOSCOPY Endoscopy Routine Encounter for follow-up surveillance of rectal cancer 1 Occurrences starting 07/24/2023 until 07/24/2024 [facility] Work Phone: Comment on above: 1 Occurrences starti ng 07/24/2023 until 07/24/2024 End: 02-21-2024 US DVT LOWER LEFT US DVT LOWER LEFT Radiology Routine Leg swelling 1 Occurrences starting 01/22/2023 until 02/21/2024 [facility] Work Phone: Comment on above: 1 Occurrences starti ng 01/22/2023 until 02/21/2024 [facility] [place] Immunizations Immunization Date Immunization Notes Care Provider Fa cili 09-20-2021 COVID-19 original vaccine, age 12+ yr, monovalent (PFIZER-[email or web address] - PURPLE TOP) Minerva Anderson MD Work Phone: [facility] 09-20-2021 COVID-19 vaccine (UNSPECIFIED) Minerva Anderson MD Work Phone: [facility] 07-25-2021 influenza, high dose seasonal, preservative-free Minerva Anderson MD Work Phone: [facility] 07-25-2021 influenza virus vaccine, unspecified formulation Deborah Norman MD Work Phone: [facility] 12-23-2020 COVID-19 vaccine (UNSPECIFIED) Minerva Anderson MD Work Phone: [facility] 12-23-2020 SARS-CoV-2 (COVID-19) mRNA BNT-162b2 Stravax Lorenzo TOMAS [facility] 12-02-2020 COVID-19 vaccine (UNSPECIFIED) Minerva Anderson MD Work Phone: [facility] 12-02-2020 SARS-CoV-2 (COVID-19) mRNA BNT-162b2 Stravax [employer] [facility] Comment on above: Result [facility] 10-21-2020 SARS-CoV-2 (COVID-19) mRNA BNT-162b2 vax Lorenzo OLSON [facility] Comment on above: Result Comment: Pt i s fully vaccinated but does not know the dates 12-05-2020 zoster vaccine recombinant Lorenzo TOMAS [facility] 07-21-2020 influenza, high-dose, quadrivalent vaccine (FLUZONE HIGH DOSE QUADRIVALENT) Minerva Anderson MD Work Phone: [facility] 09-15-2019 pneumococcal polysaccharide vaccine, 23 valent Lorenzo OLSON [facility] 07-27-2019 influenza nasal, unspecified formulation Minerva Anderson MD Work Phone: [facility] 07-27-2019 influenza virus vaccine, unspecified formulation Lorenzo OLSON [facility] 07-14-2018 pneumococcal conjugate vaccine, 13 valent Lorenzo OLSON [facility] 10-25-2009 novel [id number], preservative-free, injectable Minerva Anderson MD Work Phone: [facility] 03-31-1997 hepatitis B vaccine, adult dosage Minerva Anderson MD Work Phone: [facility] NEGATED: Highlighted row has not occurred! 8 pneumococcal polysaccharide vaccine, 23 valent Patient Objection Valencia Torres Other [facility] Other Payers Date Payer Category Payer Self-pay 2022 Unknown [id number] 2022 Medicare [id number] 2019 Unknown [id number] 2017 Medicare MEDICARE MEDICAR E A AND B [id number] 2017-Present [phone] [place] [address] Medicare [id number] 2017 Medicare [id number] 1959 Medicare [id number] 1959 Unknown [id number] 1952 Unknown [id number] [id number] 1952 Unknown [id number] 2.16.840.1.933726.3.579.2.593 1952 Unknown [id number] 2.16.840.1.595187.3.579.2.593 1952 Unknown [id number] 2.16.840.1.030131.3.579.2.593 1952 Unknown [id number] 2.16.840.1.940336.3.579.2.1259 1952 Unknown [id number] 2.16.840.1.159337.3.579.2.727 1952 Unknown [id number] 2.16.840.1.155009.3.579.2.727 1952 Unknown [id number] 2.16.840.1.744792.3.579.2.727 1952 Unknown [id number] 2.16.840.1.404605.3.579.2.727 1952 Unknown [id number] 2.16.840.1.994678.3.579.2.727 1952 Unknown [id number] 2.16.840.1.802685.3.579.2.727 1952 Unknown [id number] 2.16.840.1.054219.3.579.2.727 1952 Unknown [id number] 2.16.840.1.991644.3.579.2.727 1952 Unknown [id number] 2.16.840.1.374439.3.579.2.727 1952 Unknown [id number] 2.16.840.1.423586.3.579.2.727 1952 Unknown [id number] 2.16.840.1.418622.3.579.2.727 1952 Unknown [id number] 2.16.840.1.304164.3.579.2.727 1952 Unknown [id number] 2.16.840.1.923898.3.579.2.727 Unknown [facility] [id number] Unknown [id number] 2.16.840.1.271136.3.579.2.531 Unknown [id number] 2.16.840.1.483864.3.579.2.531 Unknown [id number] 2.16.840.1.717941.3.579.2.531 Unknown [id number] 2.16.840.1.475157.3.579.2.531 Social History Date Type Detail Facility Start: 07-11-2021 End: 12-25-2022 Tobacco smoking status Never smoked tobacco (finding) [facility] Tobacco smoking status Never [facility] Start: 02-21-2023 End: 04-16-2023 Sex Assigned At Male [facility] Start: 08-04-2018 End: 12-25-2022 Tobacco use and exposure Smokeless tobacco non-user [facility] Start: 08-04-2018 End: 08-27-2023 Alcohol intake Current drinker of alcohol (finding) [facility] Start: 08-04-2018 [facility] Start: 1950 Sex Assigned At Not on file [facility] Start: 09-07-2022 End: 09-24-2022 Exposure to SARS-CoV-2 (event) Not sure [facility] Start: 1950 Sex Assigned At Male [facility] Start: 02-21-2023 End: 04-16-2023 History of Social function [facility] NEGATED: Highlighted rowStart: NINF History of tobacco use Passive smoker [facility] Medical Equipment Procedure Code Equipment Code Equipment Origin al Text Equipment Identifier Dates Port-12/20/2022 [id number] Start: 12-20-2022 Comment on above: Description: [facility] ; Saline only flushes Functional Status Date Assessment Result Facility 10-09-2023 Functional Status N/A [facility] 05-07-2023 Functional Status N/A [facility] 04-29-2023 Functional Status No [facility] 03-18-2023 Functional Status N/A [facility] 01-22-2023 Functional Status No [facility] 10-24-2022 Functional Status N/A [facility] 10-03-2022 Functional Status No [facility] 08-20-2022 Functional Status N/A [facility] 08-14-2022 Functional Status N/A [facility] General Surgery [place] 05-31-2022 Functional Status N/A [facility] Family Medicine [place] 04-03-2022 Functional Status N/A [facility] Clinical Notes 11-14-2019 to 11-21-2023 Chelsie Ríos RN - 10/10/2023 8:33 AM EST Note Date & Type Note Facility 11-21-2023 Note [facility] 11-05-2023 Note HNO ID: [id number] Author: CHESLIE RÍOS RN Service: ? Author Type: Registered Nurse Type: Progress Notes Filed: 11/05/2023 10:53 Note Text: Sigmoidoscopy order [facility] 10-10-2023 Note HNO ID: [id number] Author: Chelsie Ríos RN Service: ? Author Type: Registered Nurse Type: Progress Notes Filed: 10/10/2023 9:08 AM Note Text: CEA order [facility] 10-10-2023 History of Present illness Narrative CEA order documented in this encounter [facility] 10-09-2023 Evaluation + Plan note Extrac swati from: Title:Pain Managment Follow up Author:Darin Cyndee Cunha Date:10/09/23 Impression and Plan Patient is a 73-year-old male with a past medical history significant for lumbar spondylosis, lumbar stenosis and lumbar neuritis. he underwent a full course of physical therapy without improvement. Tvhl-njg-orqyfdt medications have not helped. He is not [...] Date:11/01/2023 01:45:00 PM Scheduled Provider:[facility]antiago Kong [facility]:Cardiology Follow Up (FT) Appointment Date:01/03/2024 09:45:00 AM Scheduled Provider:Coery MCKEE MD Location:[facility] Appointment Type:URO Office Visit Future Scheduled Tests Radiology* XR Abdomen 1 View 09/20/22 [facility]11-08-2023 Miscellaneous Notes* Telephone Encounter - Chelsie Ríos RN - 08/28/2023 9:52 AM EST Scheduled for sigmoidoscopy with Dr. Norman on 11/05/23. Dr. Norman said he does not need to see the patient in the office, he will just talk to him on the day of his sigmoidoscopy. * Telephone Encounter - Lucina Calderon - 08/27/2023 9:[address] Minerva Anderson is referring Michael back to see Dr Norman. Patient is scheduled for his MRI of rectum on 10-24-23. Please schedule follow up after that imaging. Thank you for your help. documented in [facility]-2023 Note [id number] [facility] NoteHNO ID: [id number] Author: Chelsie Ríos RN Service: ? Author Type: Registered Nurse Type: Progress Notes Filed: 07/24/2023 2:27 PM Note Text: [facility] History of Present illness Narrative* Chelsie Ríos RN - 07/24/2023 2:22 PM EDT CEA and sigmoidoscopy order [facility]Sam[facility]-20[facility] Evaluation note* Encounter Date Diagnosis Assessment Notes [...] M54.50) [place] of [place] [facility] [place], which shows there is prominent narrowing [...] ROM/ pain is minimal with Physical Therapy. [facility] Other 09-19-2023 Miscellaneous Notes* Anesthesia PreOp - [...] 2023 TIME: 9:22 AM documented in this encounterSam[facility]09-05-2023 NoteHNO ID: [id number] Author: Chelsie Ríos RN Service: ? Author Type: Registered Nurse Type: Progress Notes Filed: 06/25/2023 4:02 PM Note Text: CT chest, [facility] History of Present illness Narrative* Chelsie Ríos RN - 06/25/2023 3:[address] chest, CT abdomen orders documented in this encounterSamaritan [facility]08-31-2023 [facility]-2023 Miscellaneous Notes* Telephone Encounter - Andree Hollis APRN.ARACELY - 06/20/2023 10:44 AM EDT The following approved medication requests have been transmitted electronically. Requested Prescriptions Signed Prescriptions Disp Refills gabapentin (NEURONTIN) 300 mg capsule 30 capsule 0 Sig: Take 1 capsule by mouth daily at bedtime for 30 days. Authorizing Provider: ANDREE HOLLIS APRN.SIGNALS ANALYST * Telephone Encounter - Denisha Duarte RN [...] verbalizes understanding. Would like script sent to [facility] [place]. RACIEL/Andree: Script pended. Denisha Duarte RN documented in this encounterSam[facility]itan [facility] Center08-30-2023 Miscellaneous Notes* Telephone Encounter - Denisha Duarte RN - 06/19/2023 2:[address] Anderson received a call on his [facility] cell today from pt. Pt c/o neuropathy in his hands and feet. would like pt to have labs drawn when here tomorrow for CT. Orders to draw: CBC, CMP, Mg, & CEA. BRM/Kari (Andree out of office): Orders pended. Please review and approve. Thanks! Etelvina Allen notified of need for labs. Denisha Sessler, RN documented in this encounterSam[facility]itan [facility]08-29-2023 Evaluation note* Encounter Date Diagnosis Assessment Notes [...] 6 months. May, Neuropathy (ICD-10 - G62.9) [facility] Other 08-08-2023 [facility]08-08-2023 History of Present illness Narrative* Minerva Anderson MD - 05/28/2023 7:41 AM EDT PATIENT NAME: Mervat Damon DATE: 05/28/2023 PRIMARY CARE PHYSICIAN: Dr. Lornezo Olson OTHER PHYSICIANS: Dr. Mervat Slaughter, Dr. [...] - Squamous mucosa polyp. 08/20/2022 [place]oscopic [place] Adenocarcinoma of colon (mass at anal verge) [...] polyp was benign. 01/22/2023 Lower extremity Doppler [place] Extensive deep venous thrombosis of the left [...] related to the thorax. 10/01/2022 MRI abdomen [place] No MRI evidence of liver lesion 09/25/2022 [...] No neoplastic hypermetabolic lesions 09/11/2022 MRI pelvis ([facility]) Low rectal neoplasm with suspected early invasion of the internal anal sphincter at the upper canal(MRI category T3b, N0). Few nonenlarged 2 to 3 mm mesorectal lymph nodes. No suspicious lymphadenopathy. 09/11/2022 CT chest, abdomen, pelvis ([facility]) Possible low-attenuation lesion right hepatic lobe under [...] arrange for port flush in 6 weeks. Natalya see him back in 12 weeks for [...] Plans will be to continue anticoagulation indefinitely. Minerva Anderson MD documented in this encounterSam[facility]07-25-2023 Miscellaneous Notes* Telephone Encounter - Denisha Duarte RN - 05/14/2023 8:22 AM EDT Pt here for repeat potassium today. Lab orders pended. Denisha Duarte RN documented in this encounterSamaritan [facility] Center07-18-2023 Evaluation + Plan note Extracted from: Title:NPV Author:Bryon Cruz MD Date :05/07/23 Impression and Plan 72-year-old gentleman [...] Tests Radiology* XR Abdomen 1 View 09/20/22 [facility]07-14-2023 Miscellaneous Notes* Telephone Encounter - Chelsie [...] his best option for colonoscopy. Contact #: [phone] documented in this encounterSamaritan [facility] Center07-14-2023 Miscellaneous Notes* Telephone Encounter - Chelsie Ríos [...] and CT in September. documented in this encounterSamaritan [facility] Center07-14-2023 Miscellaneous Notes* Telephone Encounter - Chelsie Ríos RN - 05/03/2023 9:21 AM EDT Sigmoidoscopy, CEA, MRI rectum and CT chest/abd orders Flex sig and CEA in q 3 month until March [address] in q 6 months until March 2025 documented in this encounterSamaritan [facility] Center07-10-2023 Hospital Discharge instructions Patient Education 04/29/2023 09:33:46 Heart-Healthy Eating Plan, Puvq-ft-Scjy Heart-Healthy Eating Plan Heart-healthy meal planning includes: [...] Fats and oils Meat fat, or shortening. Ewell butter, hydrogenated oils, palm oil, coconut oil, [...] provider. Document Revised: 02/15/2022 Document Reviewed: 02/15/2022 [employer] Patient Education 2021 [employer]. Follow Up Care 01/22/2023 16:31:22 With:Dilan ARRINGTON, Santiago Matos. Address: When:6 months Comments:Call for sooner apt with new/worsening symptoms [facility]07-07-2023 Miscellaneous Notes* Telephone Encounter - Sonam [...] Denisha Duarte RN * Telephone Encounter - Minerva Anderson MD - 04/17/2023 12:16 PM EDT [...] 04/17/2023 9:04 AM EDT ----- Message from Minerva Anderson MD sent at 04/16/2023 5:19 PM EDT ----- Please inform the patient that his potassium is slightly low at 3.2. Verify if he is taking a supplement. Kana Siddiqui documented in this encounterSamaritan [facility] Health Center06-27-2023 NoteGrant [facility]06-22-2023 Evaluation note* Encounter Date Diagnosis Assessment [...] or others. We will follow-up with PCP [facility] behavioral health and crisis line [phone] given. Mar, Encounter for tobacco use screening (ICD-10 - Z01.89) Tobacco screening completed never smoker. [facility] Other 06-20-2023 History and physical note* Tova [...] 2023 TIME: 12:18 PM documented in this encounterSamaritan [facility] Center06-07-2023 Miscellaneous Notes* Telephone Encounter - Columba Jon - 03/27/2023 3:06 PM EDT Looks like patient was rescheduled for a sooner date for MRI * Telephone Encounter - Merlene Woodson - 03/27/2023 1:05 PM EDT LM for pt to call back and try to set up a sooner MRI. * Telephone Encounter - Alpa Carr RN - 03/27/2023 12:47 PM EDT Will see if [facility] schedule team can assist patient in getting MRI sooner if insurance allows. * Telephone Encounter - Minerva Anderson MD - 03/26/2023 2:53 PM EDT The patient was instructed per my chart to hold Xarelto x2 days prior to procedure, and resume 1 day after if no evidence of bleeding. GRACE Siddiqui * Telephone Encounter - Alpa Carr RN - 03/26/2023 1:53 PM EDT Will reach out to Dr. Minerva Anderson MD and nursing team for orders to hold Xarelto x2 days prior to scheduled colonoscopy on 04/09/23. documented in this encounterSamaritan [facility] Health Center06-06-2023 Miscellaneous Notes* Telephone Encounter - Chelsie Ríos RN - 03/26/2023 1:55 PM EDT Returned call. Told him he can either call the office or send a My Chart message and I'd be happy to answer his questions. * Telephone Encounter - Bre Pruitt - 03/26/2023 1:42 PM EDT Patient called with questions about Colonoscopy and MRI would like to speak with someone. PH:[phone] documented in this encounterSamaritan North Health Center06-06-2023 Miscellaneous Notes* Telephone Encounter - Denisha Duarte [...] pt. Denisha Duarte RN documented in this encounterSamaritan North Health Center05-31-2023 Miscellaneous Notes* Telephone Encounter - ROYCE Jaffe [...] the population without disease(benign polymorphism). Please see PinBridge message for further discussion. Santiago Lema MS, [facility] Licensed, Certified Genetic Counselor documented in this encounterSamaritan North Health Center05-30-2023 NoteGrant [facility]05-30-2023 History of Present illness Narrative* Minerva Anderson MD - 03/19/2023 6:11 AM EDT [...] muscle spasms. He was seen [place] [facility] [place] 03/18/2023 for evaluation. Work-up including [...] wounds or petechiae. PATHOLOGY: 08/20/2022 Colonoscopic biopsy [place] Adenocarcinoma of colon (mass at anal verge) Mismatch repair gene -normal expression RADIOLOGY/OTHER STUDIES: 01/22/2023 Lower extremity Doppler ([facility] Extensive deep venous thrombosis of the left [...] related to the thorax. 10/01/2022 MRI abdomen [place] No MRI evidence of liver lesion 09/25/2022 [...] No neoplastic hypermetabolic lesions 09/11/2022 MRI pelvis ([facility]) Low rectal neoplasm with suspected early invasion of the internal anal sphincter at the upper canal(MRI category T3b, N0). Few nonenlarged 2 to 3 mm mesorectal lymph nodes. No suspicious lymphadenopathy. 09/11/2022 CT chest, abdomen, pelvis ([facility]) Possible low-attenuation lesion right hepatic lobe under [...] Plans will be to continue anticoagulation indefinitely. Minerva Anderson MD documented in this encounterSam[facility]05-29-[facility]23 Hospital Discharge instructions Patient Education 03/18/2023 13:40:26 [...] avoid intense exercise for several days. Take aybg-xlx-yaqxgva and prescription medicines only as told by [...] provider. Document Revised: 04/27/2022 Document Reviewed: 04/27/2022 Ep[employer]any Patient Education 2022 [employer]. 03/18/2023 13:40:26 Community-Acquired Pneumonia, Adult Community-Acquired Pneumonia, [...] Follow these instructions at home: Medicines Take eiom-uhi-gkhkrth and prescription medicines only as told by [...] and water are not available, use hand product assurance engineer. Contact a health care provider if you [...] provider. Document Revised: 07/19/2020 Document Reviewed: 07/19/2020 Epiphany Patient Education 2022 [employer]. Follow Up Care 03/18/2023 10:25:52 With:Lorenzo OLSON Address: [address] [address]- Business (1) When:03/21/2023 13:34:29 Comments:Return to the emergency room if your shortness of breath gets worse, your neck pain gets worse or any new symptoms. Be aware that both [place] and Flexeril can cause drowsiness. [facility]05-29-2023 Evaluation + Plan noteExtracted from: Title:ED Note Author:Corrina Rogers, Yuridia Pineda te:03/18/23 1. Pneumonia (J18.9: Pneumon ia, unspecified organism) 2. Neck muscle spasm (M62.838: Other muscle spasm) Ordered: acetaminophen-hydrocodone, 1 tab(s), Oral, q6hr as needed for pain, 10 tab(s), Refill(s) 0, [id number], 188, cm, 03/18/23 10:50:00 EDT, Height/Length Dosing, 111, kg, 03/18/23 10:50:00 EDT, Weight Dosing Orders: acetaminophen-oxycodone, 1 tab(s), Tab, Oral, Once, Stop date 03/18/23 11:55:00 EDT, STAT, Start date 03/18/23 11:55:00 EDT azithromycin, = 1 packet(s), Oral, As Directed, as directed on package labeling, X 5 day(s), # 6 tab(s), Refills(s) 0, Pharmacy: [id number], 188, cm, 03/18/23 10:50:00 EDT, Height/Length Dosing, 111, kg, 03/18/23 10:50:00 EDT, Weight Dosing cyclobenzaprine, 10 mg = 1 tab(s), Oral, TID, PRN for spasm, # 20 tab(s), Refills(s) 0, Pharmacy: [facility] #[id number], 188, cm, 03/18/23 10:50:00 EDT, Height/Length Dosing, [...] Tests Radiology* XR Abdomen 1 View 09/20/22 [facility]24[facility] History of Present illness Narrative* Dania Vásquez MD - 03/13/2023 10:31 AM EDT Radiation Oncology - Follow Up Note PATIENT NAME: Mervat Damon PATIENT DIAGNOSIS: Adenocarcinoma of the lower rectum MRI staged [id number] RADIATION SUMMARY: DATES OF TREATMENT: 10/08/2022- 11/19/2022 [...] by: Dania Vásquez MD cc: Lorenzo Olson [address] [place] [address] [address] [place] [address] No referring provider defined for this encounter. documented in this encounterSamaritan [facility] Center05-16-2023 NoteHNO ID: [id number] Author: Emilia Olivas RN Service: ? Author Type: Registered Nurse Type: Progress Notes Filed: 03/05/2023 12:55 PM Note Text: HM back to tx room to give pt information on potassium rich diet. Emilia Olivas RNGrant Hospital05-16-2023 [facility] History of Present illness Narrative* Emilia Olivas RN - 03/05/2023 9:50 AM EDT back to tx room to give pt information on potassium rich diet. Emilia Olivas RN documented in this encounterSamaritan [facility] Health Center05-09-2023 Miscellaneous Notes* Telephone Encounter - Samantha iH dulce - 02/26/2023 12:19 PM EDT Approved for free Xarelto from [facility] through 10/20/23. Prescriptions are filled at their internal pharmacy [facility]. JPAO phone [phone] documented in this encounterSamaritan North [facility] Center05-02-2023 [facility]05-02-2023 History of Present illness Narrative* Minerva Anderson MD - 02/19/2023 7:22 AM EDT [...] wounds or petechiae. PATHOLOGY: 08/20/2022 Colonoscopic biopsy [place] Adenocarcinoma of colon (mass at anal verge) Mismatch repair gene -normal expression RADIOLOGY/OTHER STUDIES: 01/22/2023 Lower extremity Doppler ([facility] Extensive deep venous thrombosis of the left [...] related to the thorax. 10/01/2022 MRI abdomen ([facility] No MRI evidence of liver lesion 09/25/2022 [...] No neoplastic hypermetabolic lesions 09/11/2022 MRI pelvis ([facility]) Low rectal neoplasm with suspected early invasion of the internal anal sphincter at the upper canal(MRI category T3b, N0). Few nonenlarged 2 to 3 mm mesorectal lymph nodes. No suspicious lymphadenopathy. 09/11/2022 CT chest, abdomen, pelvis ([facility]) Possible low-attenuation lesion right hepatic lobe under [...] Plans will be to continue anticoagulation indefinitely. Minerva Anderson MD documented in this encounterSamaritan [facility]04-27-2023 [facility]04-20-20[facility]04-20-2023 Nurse Note* Alpa Carr RN - [...] Temperature: No Drains: No documented in this encounterSamaritan North Health Center04-20-2023 History of Present illness Narrative* Deborah Norman MD - 02/07/2023 2:20 PM EDT COLORECTAL SURGERY February 06, 2023 Mervat Amadorruma 72 year old This consult was requested by Dr. Krueger and my final recommendations will be communicated to the requesting health care provider by way of the shared medical record for internal providers or letter via the [employer] [employer] for external providers. Chief Complaint: [...] He had his surgical care established in [place] but [place]. Heis doing well with chemotherapy so far. [...] Digital rectal exam reveals indurated ulcer anterior Residential Air Sealing Technician present: Yes, Alpa Carr Anoscopy: The patient was placed in chest-knee position. After digital exam with a lubricated finger, the scope was easily inserted. Anterior distal ulcer noted. Otherwise normal mucosa was noted. Anoscopy completed. Assessment Assessment and Plan: Mervat Damon is a 72 year old [...] Norman MD Colorectal Surgery documented in this encounterSamaritan North [facility] Center04-18-2023 [facility]04-17-2023 [facility]04-17-2023 History of Present illness Narrative* Mert Krueger MD - 02/04/2023 2:00 PM EDT Chief Compliant: Mervat Damon, 72 year old male, presents in the office today at the request of Andree Hollis for New Patient Evaluation and Rectal [...] mass. After that he saw, oncology in [place]. Plan was to start chemo and radiation [...] and internal hemorrhoids. He was evaluated at [facility] on 08/20/22 via flexible sigmoidoscopy demonstrating a [...] (L) 0.83 (L) 0.71 (L) 0.79 (L) Creek% % 8.7 9.5 9.2 11.1 10.6 9.7 8.9 Abs Creek <0.87 k/uL 0.53 0.55 0.78 0.64 0.74 [...] and internal hemorrhoids. He was evaluated at [facility] on08/20/22 via flexible sigmoidoscopy demonstrating a friable, firm lesion encompassing dskriewzcmnky27-26% of the circumference of the anus right at the anal verge extending 3-4 cm into the anal canal with central ulceration Follows in [place] with Dr. Anderson who referred the patient here for more evaluation of rectal bleeding We discussed the rectal cancer as the cause of rectal bleeding Completed 21 days of radiation He is currently on chemotherapy 4th cycle of FOLFOX Tolerates this well Was seen by surgery at [place] but prefers to keep his care at [place] Will refer to Dr. Norman to establish [...] with prostate cancer Will discuss with Dr. Norman referring the patient to genetics 5. Family history of primary liver cancer - ICD9: V16.0, ICD10: Z80.0 Sister with HCC without known underlying liver cirrhosis Mert Krueger MD Follow Up: No follow-ups on file. documented in this encounterSamaritan North Health Center04-06-2023 Miscellaneous Notes* Telephone Encounter - Denisha Duarte RN - 01/24/2023 11:55 AM EDT Return call received from pt. Pt notified and verbalizes understanding. Denisha Duarte RN * Telephone Encounter - Denisha Duarte RN - 01/24/2023 9:04 AM EDT Call placed to pt. No answer. Message left requesting call back. Call placed to pt's spouse. No answer. Dr's recommendations left on spouse's personalized voicemail. Advised [...] Denisha Duarte RN * Telephone Encounter - Minerva Anderson MD - 01/23/2023 11:59 AM EDT [...] Denisha Duarte RN * Telephone Encounter - Andree Hollis APRN.CNP - 01/23/2023 10:52 AM EDT Signed. Andree Hollis APRN.ARACELY * Telephone Encounter - Denisha Duarte RN - 01/23/2023 9:42 AM EDT Call placed to Dr Anderson to clarify anticoagulant. Per Ramya Colin script cancelled due to cost. Pt to start Xarelto as prescribed. Pt's spouse notified and verbalizes understanding. RACIEL/Andree: Order for GI consult pended. Pt's spouse asks if it is ok for him to stand up at the altar during service this coming Saturday? Denisha Duarte RN * Telephone Encounter - Minerva Anderson MD - 01/23/2023 9:35 AM EDT I would recommend he see Dr. Kebede who is at [facility], and hopefully easier to get into thanthe [...] If so, pt would like referred to [facility] and asks who you recommend [...] mg BID. Script will be sent to [facility] pharmacy. Pt present in office at time of call. Pt notified of 's recommendations and verbalizes understanding. 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 Denisha Duarte RN documented in this encounterSamaritan [facility] Center04-04-2023 Miscellaneous Notes* Telephone Encounter - Denisha Duarte RN - 01/22/2023 1:35 PM EDT Voicemail message received from [facility]uling. States that they are still waiting for ouroffice to fax the pt's US order. Asks that we send it to [phone]. Order faxed to the above number as requested. Denisha Duarte RN documented in this encounterSamaritan [facility] Center04-04-2023 Note[facility]04-04-2023 [facility]04-04-2023 [facility]04-04-2023 History of Present illness Narrative* Hoa [...] Owen MS, RDN, LD documented in this encounterSamaritan [facility] Center04-04-2023 History of Present illness Narrative* Ashley Camilo RN - 01/22/2023 9:29 AM EDT Patient to get an US of LLE edema per Andree. Would like it a [facility]. desktop publishing associate notified of another appointment that patient has today at [facility] there. Ashley Camilo RN documented in this encounterSamaritan North Health Center04-04-2023 History of Present illness Narrative* Andree Hollis APRN.SIGNALS ANALYST - 01/22/2023 8:49 AM EDT PATIENT NAME: [...] wounds or petechiae. 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 10/01/2022 MRI abdomen ([facility] No MRI evidence of liver lesion 09/25/2022 [...] No neoplastic hypermetabolic lesions 09/11/2022 MRI pelvis ([facility]) Low rectal neoplasm with suspected early invasion of the internal anal sphincter at the upper canal(MRI category T3b, N0). Few nonenlarged 2 to 3 mm mesorectal lymph nodes. No suspicious lymphadenopathy. 09/11/2022 CT chest, abdomen, pelvis ([facility]) Possible low-attenuation lesion right hepatic lobe under [...] to colorectal surgery (Dr. Thalia Troy in [place]) for restaging to include pelvic MRI and [...] lower extremity ultrasound to rule out DVT. Andree Hollis APRN.SIGNALS ANALYST CC: Dr. Thalia Troy ([facility] Colorectal Surgery) I spent a total of 30 minutes on the date of the service which included preparing to see the patient, qnta-nz-zsxa patient care, completing clinical documentation, obtaining and/or reviewing separately obtained history, performing a medically appropriate examination, counseling and educating the pat ient/family/caregiver, ordering medications, tests, or procedures, independently interpreting results (not separately reported), and communicating results to the patient/family/caregiver. documented in this encounterSamaritan North Health Center03-31-2023 Miscellaneous Notes* Telephone Encounter - Renata Amin - 01/18/2023 4:14 PM EDT Patient has an OTV appointment on 01/22. Please place lab orders. Renata Amin documented in this encounterSamaritan North Health Center03-27-2023 Miscellaneous Notes* Telephone Encounter - Denisha Duarte RN - 01/14/2023 12:17 PM EDT Pt notified and verbalizes understanding. 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 However, a flex sigmoidoscopy would be recommended to make sure nothing else serious going on. Best if he could see his [place] colorectal surgeon. If not able to get in to see her the local credit risk associate can perform a flex sig. Thanks, B * Telephone Encounter - Denisha Duarte RN [...] advise? Denisha Duarte RN documented in this encounterSamaritan North Health Center03-26-2023 NoteEchocardiology Procedure Exam Date/Time Accession # Ordering Echo Transthoracic 01/10/2023 15:02 EDT [id number] Cyndee SANCHEZ CNP Complete CPT code 97251 82879 Reason for Exam (Echo Transthoracic Complete) I42.8;Cardiomyopathy Report Version: 1 Study ID: [id number] Adult Echocardiogram Report Name: MERVAT DAMON Study Date: 01/10/2023, 2: 20 PM Patient Location: [facility] : 1950 (MM/DD/YYYY) Gender: Male Age: 72 Years Height: 187.96 cm BP: 93 / 62 mmHg Weight: 111.586 kg HR: 71 bpm BSA: 2.37 m? Ordering Physician: Cyndee SANCHEZ Referring Physician: Cyndee SANCHEZ Performed By: Nida Cerda RDMS, T Reason For Study: Cardiomyopathy History: Cardiomyopathy Interpretation [...] AM FINAL REPORT Dictated: 01/10/2023 2:20 pm Christofferson MD, Santiago D. Signed (Electronic Signature): 01/13/2023 8:23 am Signed by: Santiago Kong MD Transcribed by: [facility] Technologist: [facility] Centersebast[facility]03-21-2023 Note [facility] History of Present illness Narrative* Hoa Owen, RD - 01/08/2023 10:17 AM EDT Oncology [...] (249 lb 12.8 oz). Resting Metabolic Rate: 1964 Weight Change: n/a, no significant changes but weight fluctuations noted Leslie Body Weight: 79.9kg Estimated kilocalorie needs: 6173-6291 kilocalories determined by 25-30 kcal/kg Estimated protein needs: 80-96 grams determined by 1.0-1.2 g/kg Leslie weight Estimated fluid needs: ~9139-6997 milliliters based on 1 mL per kcal [...] 60 mg/m2 (Treatment Plan Recorded) INTRAVENOUS ONCE Minerva Anderson MD 145.8 mg at 01/08/23927 leucovorin 972 mg in D5W 106.6 mL 400 mg/m2 (Treatment Plan Recorded) INTRAVENOUS ONCE Minerva Anderson MD 972 mg at 01/08/23927 fluorouracil 729 mg injection (ADRUCIL) 300 mg/m2 (Treatment Plan Recorded) INTRAVENOUS ONCE Minerva Anderson MD fluorouracil (ADRUCIL) 4,860 mg in NaCl 0.9% 102 mL in empty bag 2,000 mg/m2 (Treatment Plan Recorded) INTRAVENOUS ONCE Minerva Anderson MD NaCl 0.9% iv infusion 500-999 mL/hr INTRAVENOUS PRN Minerva Anderson MD diphenhydrAMINE 50 mg injection (BENADRYL) 50 mg INTRAVENOUS PRN Minerva Anderson MD hydrocortisone sodium succinate (PF) 100 mg injection (Solu-CORTEF) 100 mg INTRAVENOUS PRN Minerva Anderson MD EPINEPHrine 1 mg/mL (1 mL) 0.3 mg injection 0.3 mg INTRAMUSCULAR PRN Minerva Anderson MD sodium chloride 0.9 % (flush) 10-20 mL (BD POSIFLUSH) 10-20 mL INTRAVENOUS DIRECTED PRN Minerva Anderson MD Need for Follow up: will continue to follow Referred by: Yesi BATISTA Billing Type: Re-assess/15 min 1 unit Time Spent with Patient: 15 minutes Signed by: Hoa Owen MS, RDN, LD documented in this encounterSamaritan North Health Center03-21-2023 Note[facility]03-21-2023 Nurse Note* Lisseth Chávez - 01/08/2023 8:23 AM EDT Pt states that he had a lot of nausea after his last treatment and felt sick for 2 days after despite using his antiemetics. Lisseth Chávez' documented in this encounterSamaritan North Health Center03-21-2023 History of Present illness Narrative* Minerva Anderson MD - 01/08/2023 6:49 AM EDT [...] wounds or petechiae. 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 10/01/2022 MRI abdomen ([facility] No MRI evidence of liver lesion 09/25/2022 [...] No neoplastic hypermetabolic lesions 09/11/2022 MRI pelvis ([facility]) Low rectal neoplasm with suspected early invasion of the internal anal sphincter at the upper canal(MRI category T3b, N0). Few nonenlarged 2 to 3 mm mesorectal lymph nodes. No suspicious lymphadenopathy. 09/11/2022 CT chest, abdomen, pelvis ([facility]) Possible low-attenuation lesion right hepatic lobe under [...] to colorectal surgery (Dr. Thalia Troy in [place]) for restaging to include pelvic MRI and [...] years. No evidence of ongoing thromboembolic disease. Minerva Anderson MD CC: Dr. Thalia Troy ([facility] Colorectal Surgery) documented in this encounterSamaritan North Health Center03-10-2023 Miscellaneous Notes* Telephone Encounter - Lucy Goetz [...] protocol. Lucy Goetz RN documented in this encounterSamaritan North Health Center03-07-2023 [facility]03-02-2023 [facility]03-02-2023 [facility]03-02-2023 History of Present illness Narrative* Denisha Duarte RN - 12/20/2022 2:55 PM EST Research Test Engine Operator Pre Chemo Patient identified by name and date of . YES Confirmed date and time for chemotherapy ? YES Other appointments (labs, imaging) discussed? YES Discussed where to park (behavioral health worker), charge for parking NO Discussed where to [...] Ivana. Denisha Duarte RN documented in this encounterSamaritan North Health Center03-02-2023 NoteHNO ID: [id number] Author: Hang Rhodes RN Service: ? Author Type: Registered Nurse Type: Nursing Progress Note Filed: 12/20/2022 11:22 AM Note Text: D/c instructions provided along with anesthesia and MP care paperwork.[facility] [id number] NoteHNO ID: [id number] Author: Mark Valladares MD Service: Interventional Radiology Author Type: Physician Type: Procedures Filed: 12/20/2022 10:32 AM Note Text: RADIOLOGY BRIEF PROCEDURE NOTE Procedure Date: December 20, 2022 Incision/Procedure Start Time: 10:04 AM Incision Close/Procedure End Time: 10:28 AM SURGEON(S)/PROCEDURALIST(S) AND RN DIABETES(S): Mark Valladares MD PROCEDURE: SL Port Placement PRE-PROCEDURE DIAGNOSIS: Rectal Cancer POST-PROCEDURE DIAGNOSIS: Same ESTIMATED BLOOD LOSS: 0 ml SPECIMENS: None COMPLICATIONS: None FINDINGS: Placement of RIJ SL Port with catheter tip at superior cavoatrial junction. PLAN: Port is ready for use. SIGNATURE: Mark Valladares MD PATIENT NAME: Mervat Damon DATE: December 20, 2022 TIME: 10:31 AM PAGER/CONTACT #:[facility] [id number] Miscellaneous Notes* Telephone Encounter - Rashmi Lerner - 12/19/2022 1:28 PM EST Patient has been scheduled. Rashmi Lerner * Telephone Encounter - Rashmi Lerner - 12/17/2022 4:02 PM EST Call placed to [facility] for port placement. Left message on voicemail. Rashmi Lerner documented in this encounterSamaritan North Health Center03-01-2023 Miscellaneous Notes* Telephone Encounter - Milton Ward RN - 12/19/2022 10:16 AM EST You are scheduled for a Mediport placement, On 12/20/2022. You are to arrive at 0900 am and [facility]: [facility]: Enter through [facility] entrance. Proceed [...] if they are not done at a [facility] facility. . Diver'S Tender/Transportation: How will you be arriving for your procedure? Private car. You will need a responsible adult to accompany you to and from the procedure. Your telephone directory distributor driver is required to stay with you until you are taken into the procedure room. Call for any questions [phone] documented in this encounterSamaritan North Health Center02-28-2023 Miscellaneous Notes* Telephone Encounter - Orin Ríos - 12/18/2022 8:36 AM EST Patient coming in on Saturday12/25/22 for follow up treatment. Please add lab orders. Thanks. Orin Ríos MA documented in this encounterSamaritan North Health Center02-27-2023 NoteGrant [facility]02-27-2023 History of Present illness Narrative* Minerva Anderson MD - 12/17/2022 8:37 AM EST [...] wounds or petechiae. 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 10/01/2022 MRI abdomen ([facility] No MRI evidence of liver lesion 09/25/2022 [...] No neoplastic hypermetabolic lesions 09/11/2022 MRI pelvis ([facility]) Low rectal neoplasm with suspected early invasion of the internal anal sphincter at the upper canal(MRI category T3b, N0). Few nonenlarged 2 to 3 mm mesorectal lymph nodes. No suspicious lymphadenopathy. 09/11/2022 CT chest, abdomen, pelvis ([facility]) Possible low-attenuation lesion right hepatic lobe under [...] to colorectal surgery (Dr. Thalia Troy in [place]) for restaging to include pelvic MRI and [...] years. No evidence of ongoing thromboembolic disease. Minerva Anderson MD CC: Dr. Thalia Troy ([facility] Colorectal Surgery) documented in this encounterSamaritan North Health Center02-20-2023 Note[facility]02-20-2023 Note[facility]02-20-2023 Note[facility]01-31-2023 Miscellaneous Notes* Telephone Encounter - Katerina Hargrove RN - 11/20/2022 10:26 AM EST Informed pt of Dr Anderson's message. Pt verbalized understanding and denies further needs at this time. Katerina Hargrove RN * Telephone Encounter - Katerina Hargrove RN - 11/20/2022 8:56 AM EST ----- Message from Minerva Anderson MD sent at 11/19/2022 4:49 PM EST ----- Please inform the patient that his kidney function is up slightly. Encourage to drink as much fluidas possible to flush the kidneys . RACIEL Siddiqui documented in this encounterSamaritan North Health Center01-30-2023 History of Present illness Narrative* G Saeed Vásquez MD - 11/19/2022 2:38 PM EST Radiation Oncology - On Treatment Review (OTR) Note PATIENT NAME: Mervat Damon PATIENT DIAGNOSIS: Adenocarcinoma of the lower rectum MRI staged [id number] COURSE: definitive and concurrent chemotherapy Current dose: [...] weeks. Dania Vásquez MD documented in this encounterSamaritan North Health Center01-30-2023 History of Present illness Narrative* Minerva Anderson MD - 11/19/2022 8:07 AM EST [...] wounds or petechiae. 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 Few nonenlarged 2 to 3 mm mesorectal lymph nodes. No suspicious lymphadenopathy. 09/11/2022 CT chest, abdomen, pelvis ([facility]) Possible low-attenuation lesion right hepatic lobe under [...] to colorectal surgery (Dr. Thalia Troy in [place]) to discuss surgical options. 2. Rheumatoid arthritis [...] years. No evidence of ongoing thromboembolic disease. Minerva Anderson MD CC: Dr. Thalia Troy ([facility] Colorectal Surgery) documented in this encounterSamaritan North Health Center01-30-2023 History of Present illness Narrative* Dania Vásquez MD - 11/19/2022 12:00 AM EST [facility] Radiation Oncology Department RADIATION ONCOLOGY - COMPLETION NOTE PATIENT: MERVAT DAMON: 1950 DATES OF TREATMENT: 10/08/2022- 11/19/2022 DIAGNOSIS: Adenocarcinoma of the lower rectum MRI staged [id number] AREA TREATED: rectum DELIVERED DOSE: Area: pelvis [...] cc: Dr. Lorenzo Anderson documented in this encounterSamaritan North Health Center01-26-2023 History of Present illness Narrative* Dania Vásquez MD - 11/15/2022 8:34 AM EST Boost films reviewed. documented in this encounterSamaritan North Health Center01-23-2023 History of Present illness Narrative* Dania Vásquez MD - 11/12/2022 2:01 PM EST Radiation Oncology - On Treatment Review (OTR) Note PATIENT NAME: Mervat Damon PATIENT DIAGNOSIS: Adenocarcinoma of the lower rectum MRI staged [id number] COURSE: definitive and concurrent chemotherapy Current dose: [...] outlined. Dania Vásquez MD documented in this encounterSamaritan North Health Center01-19-2023 Nurse Note* Re Alvarez LPN - 11/08/2022 [...] assist. Re Alvarez LPN documented in this encounterSamaritan North Health Center01-18-2023 Miscellaneous Notes* Telephone Encounter - Re Alvarez LPN - 11/07/2022 2:13 PM EST Standing weekly cbc order pending your approval. Please indicate how often you want CBC drawn. Re Alvarez LPN documented in this encounterSamaritan North Health Center01-18-2023 Miscellaneous Notes* Telephone Encounter - Andree Hollis APRN.ARACELY - 11/07/2022 1:49 PM EST The following approved medication requests have been transmitted electronically. Requested Prescriptions Signed Prescriptions Disp Refills oxyCODONE-acetaminophen (PERCOCET) 5-325 mg tablet 100 tablet 0 Sig: Take 1 tablet by mouth every 6 hours as needed for pain. Authorizing Provider: ANDREE HOLLIS APRN.ARACELY * Telephone Encounter - Re Alvarez LPN - 11/07/2022 1:44 PM EST Michael is here for radiation therapy with c/o increasing rectal pain. He is currently taking hydrocodone-apap 5/325mg 1 tablet three times daily with little relief. He states he and Andree discussed possibly changing pain medication if needed. He would like any prescriptions sent to [facility] pharmacy. Re Alvarez LPN documented in this encounterSamaritan North Health Center01-16-2023 History of Present illness Narrative* Dania Vásquez MD - 11/05/2022 10:04 AM EST Radiation Oncology - On Treatment Review (OTR) Note PATIENT NAME: Mervat Damon PATIENT DIAGNOSIS: Adenocarcinoma of the lower rectum MRI staged [id number] COURSE: definitive and concurrent chemotherapy Current dose: [...] outlined. Dania Vásquez MD documented in this encounterSamaritan North Health Center01-09-2023 History of Present illness Narrative* Andree Hollis APRN.SIGNALS ANALYST - 10/29/2022 3:32 PM EST PATIENT NAME: Mervat Damon DATE: 10/11/2022 PRIMARY CARE PHYSICIAN: Dr. Lorenzo Olson OTHER PHYSICIANS: Dr. Mervat Slaughter, Dr. Thalia Troy, Dr. Kiko Treadwell, Dr. Vásuqez CC: This is a 72 year old [...] wounds or petechiae. 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 Few nonenlarged 2 to 3 mm mesorectal lymph nodes. No suspicious lymphadenopathy. 09/11/2022 CT chest, abdomen, pelvis ([facility]) Possible low-attenuation lesion right hepatic lobe under [...] years. No evidence of ongoing thromboembolic disease. Andree Hollis APRN.SIGNALS ANALYST CC: Dr. Thalia Troy ([facility] Colorectal Surgery) I spent a total of 30 minutes on the date of the service which included preparing to see the patient, [id number] patient care, completing clinical documentation, obtaining and/or reviewing separately obtained history, performing a medically appropriate examination, counseling and educating the pat ient/family/caregiver, ordering medications, tests, or procedures, independently interpreting results (not separately reported), and communicating results to the patient/family/caregiver. documented in this encounterSamaritan North Health Center01-09-2023 History of Present illness Narrative* Dennis Cheung MD - 10/29/2022 2:00 PM EST Radiation Oncology - On Treatment Review (OTR) Note PATIENT NAME: Mervat Damon PATIENT DIAGNOSIS: Adenocarcinoma of the lower rectum MRI staged [id number] COURSE: definitive and concurrent chemotherapy Current dose: [...] planned. Dennis Cheung MD documented in this encounterSamaritan North Health Center01-04-2023 Hospital Discharge instructions Patient Education 10/24/2022 13:18:32 [...] Follow these instructions at home: Medicines Take msah-nsi-edcofmt and prescription medicines only as told by [...] 10/04/2001 Document Revised: 09/19/2018 Document Reviewed: 10/23/2017 [employer] Patient Education 2020 [employer] Follow Up Care 09/28/2021 14:33:01 With:VIVI ESCOBAR, ASHLEY Perez, URL Address: [address] [place] [address] When:3 months [facility] Maisha 01-03-2023 History of Present illness Narrative* Oliva Brewer RPh - 10/23/2022 2:31 PM EST Opened in error. documented in this encounterSamaritan North Health Center01-03-2023 History of Present illness Narrative* Dania Vásquez MD - 10/23/2022 8:03 AM EST Radiation Oncology - On Treatment Review (OTR) Note PATIENT NAME: Mervat Damon PATIENT DIAGNOSIS: Adenocarcinoma of the lower rectum MRI staged [id number] COURSE: definitive and concurrent chemotherapy Current dose: [...] outlined. Dania Vásquez MD documented in this encounterSamaritan North Health Center12-30-2022 History of Present illness Narrative* Hoa Owen, RD - 10/19/2022 12:54 PM EST Oncology [...] 15 minutes Signed by: Hoa Owen MS, RDMorgan, LD documented in this encounterSamaritan North Health Center12-27-2022 History of Present illness Narrative* G Saeed Vásquez MD - 10/16/2022 1:16 PM EST Radiation Oncology - On Treatment Review (OTR) Note PATIENT NAME: Mervat Damon PATIENT DIAGNOSIS: Adenocarcinoma of the lower rectum MRI staged [id number] COURSE: definitive and concurrent chemotherapy Current dose: [...] outlined. Dania Vásquez MD documented in this encounterSamaritan North Health Center12-22-2022 History of Present illness Narrative* Andree Hollis APRN.SIGNALS ANALYST - 10/11/2022 2:55 PM EST PATIENT NAME: [...] wounds or petechiae. 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 Few nonenlarged 2 to 3 mm mesorectal lymph nodes. No suspicious lymphadenopathy. 09/11/2022 CT chest, abdomen, pelvis ([facility]) Possible low-attenuation lesion right hepatic lobe under [...] years. No evidence of ongoing thromboembolic disease. Andree Hollis APRN.CNP CC: Dr. Thalia Troy ([facility] Colorectal Surgery) I spent a total of 30 minutes on the date of the service which included preparing to see the patient, umbd-[id number]-qdhn patient care, completing clinical documentation, obtaining and/or reviewing separately obtained history, performing a medically appropriate examination, counseling and educating the pat ient/family/caregiver, ordering medications, tests, or procedures, independently interpreting results (not separately reported), and communicating results to the patient/family/caregiver. documented in this encounterSamaritan North Health Center12-22-2022 Miscellaneous Notes* Telephone Encounter - Denisha Duarte [...] same day appointment:No - Has f/u w/ Andree today. ADDITIONAL FOLLOW UP: The next outreach [...] comply. Denisha Duarte RN documented in this encounterSamaritan North Health Center12-21-2022 NoteHNO ID: [id number] Author: Aparna Burgos APRN.CAT SITTER Service: Anesthesiology Author Type: Nurse Licensed Real Estate Broker Type: Anesthesia Procedure Notes Filed: 10/10/2022 1:32 PM Note Text: ANESTHESIOLOGY PROCEDURE NOTE Airway General Information Procedure Start Time/Medication Administration: 10/10/2022 1:20 PM Patient location during procedure: OR Patient identity confirmed: arm band, care count team member and patient Staffing CAT SITTER: Aparna Burgos APRN.CAT SITTER Performed by: MARIA G Indications and Patient Condition Indications for airway management: anesthesia Preoxygenated: yes anesthesia circuit Patient position: sniffing Method: asleep Difficult Mask: No Final Airway Details Final airway type: supraglottic airway Number of attempts at approach: 1 Final Supraglottic Airway: IGEL Size 5 Seal Adequate: yes Airway not difficult SIGNATURE: Aparna Burgos APRN.CAT SITTER PATIENT NAME: Mervat Damon DATE: October 10, 2022 TIME: 1:32 PM CSN: [id number] [facility] Patient Name: Mervat Damon Procedure Date: 10/10/2022 12:50 PM Date of : 1950 Admit Type: Outpatient Age: 72 Room: Endo 2 Gender: Male Attending MD: Hang Maier MD Procedure: Bronchoscopy Indications: Adenopathy Providers: Hang Maier MD (Doctor), Bre Kwon RN (Nurse), Vinicius Severino RN (Nurse) Referring MD: Requesting Physician: Minerva Anderson Medicines: See the Anesthesia note for [...] Procedure Start: 1:29:22 PM Procedure End: 1:58:11 [facility]12-20-2022 Miscellaneous Notes* Telephone Encounter - Vito Del Castillo - 10/09/2022 11:56 AM EST Spoke with the patient confirmed noon arrival time for 1 pm appointment at [facility] Vito Del Castillo documented in this encounterSamaritan North Health Center12-19-2022 History and physical note * Hang Maier MD - 10/08/2022 2:46 PM EST VIRTUAL VISIT PROGRESS NOTE This is a virtual visit using USEREADY video visit. It required patient-provider interaction for themedical decision making as documented below. Mervat Damon is a 72 year old male seen for evaluation of mediastinal adenopathy, referred byDr. Minerva Anderson. My findings and recommendations will be [...] which included preparing to see the patient, fxqb-en-etsz patient care, completing clinical documentation, obtaining and/or reviewing separately obtained history, performing a medically appropriate examination, counseling and educating the pat ient/family/caregiver, ordering medications, tests, or procedures, communicating with other HCPs (not separately reported), independently interpreting results (not separately reported), communicatingresults to the patient/family/caregiver, and care coordination (not separately reported) Hang Maier MD October 08, 2022 3:54 PM documented in this encounterSamaritan North Health Center12-19-2022 History of Present illness Narrative* G Saeed Vásquez MD - 10/08/2022 11:56 AM EST Radiation Oncology - On Treatment Review (OTR) Note PATIENT NAME: Mervat Damon PATIENT DIAGNOSIS: Adenocarcinoma of the lower rectum MRI staged [id number] COURSE: definitive and concurrent chemotherapy Current dose: [...] prescribed. Dania Vásquez MD documented in this encounterSamaritan North Health Center12-19-2022 Nurse Note* Orin Ríos - 10/08/2022 11:23 AM EST EKG performed as ordered. Electronically sent to [facility] main. Placed paper copy in scan folder. Orin Ríos MA documented in this encounterSamaritan North Health Center12-16-2022 NoteHNO ID: [id number] Author: Collette Cespedes Service: ? Author Type: ? Type: Progress Notes Filed: 2022 10:54 AM Note Text: Patient called reviewed: Please schedule patient for the following: Pre-Procedure visit required: Yes-10/08 Physician Performing Bronchoscopy: Dr. Oconnor Needs Labs: No Needs EKG: Yes-10/08- [facility]12-16-2022 Miscellaneous Notes* Telephone Encounter - Nasrin Tamayo [...] 2022 9:49 AM EST ----- Message from Minerva Anderson MD sent at 2022 9:39 AM [...] to hold off on treatment any longer. Thanks, Minerva ----- Message ----- From: Hang Maier MD Sent: 2022 9:13 AM EST To: Collette Cespedes, Minerva Anderson MD, # Subject: RE: Possible New Pt Sure thing! We have an open slot next Saturday we'll try to get him in for that. He'll need an EKG and pre-bronch COVID which I assume he could get done at [facility] for convenience. [facility] Dr. Oconnor will be doing the bronch next week, but I'll see himin the office, either in in person or virtually. Thanks, Happy Holidays. Luis Alfredo Maier ----- Message ----- From: Denisha Duarte RN Sent: 09/28/2022 3:08 PM EST To: Hang Maier MD, Minerva Anderson MD Subject: Possible New Pt Good [...] you! Denisha Duarte RN documented in this encounterSamaritan North Health Center12-16-2022 NoteHNO ID: [id number] Author: Hang Maier MD Service: ? 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 States that he has not heard from pharmacy. Informed pt that he can orange picker machine operator his script today. Pharmacy hours reviewed. Apologized for missed notification. Pt verbalizes understanding and will be in today. Denisha Duarte RN documented in this encounterSamaritan North Health Center12-13-2022 Miscellaneous Notes* Telephone Encounter - Denisha Duarte RN - 10/02/2022 4:28 PM EST Patient started/will start taking Capecitabine on 10/08/22. Denisha Duarte RN documented in this encounterSamaritan North Health Center12-13-2022 History of Present illness Narrative* Denisha Duarte [...] Information handout: Capecitabine, Specialty Pharmacy Information : [facility], and Specialty Pharmacy phone numbers: Yes DRUG-SPECIFIC [...] minutes Denisha Duarte RN documented in this encounterSamaritan North Health Center12-13-2022 History of Present illness Narrative* Minerva Anderson MD - 10/02/2022 8:13 AM EST [...] every 6 hours as needed. azithromycin (ZITHROMAX Z-FRANCISCO) 250 mg tablet Take two (2) tablets [...] swelling, and atrophy. 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 Few nonenlarged 2 to 3 mm mesorectal lymph nodes. No suspicious lymphadenopathy. 09/11/2022 CT chest, abdomen, pelvis ([facility]) Possible low-attenuation lesion right hepatic lobe under [...] years. No evidence of ongoing thromboembolic disease. Minerva Anderson MD CC: Dr. Thalia Troy ([facility] Colorectal Surgery) documented in this encounterSamaritan North Health Center12-12-2022 Miscellaneous Notes* Telephone Encounter - Denisha Duarte RN - 10/01/2022 5:19 PM EST Pt will be starting chemo/xrt on 10/08. Scripts for antiemetics pended. Denisha Duarte RN documented in this encounterSamaritan North Health Center12-09-2022 Miscellaneous Notes* Telephone Encounter - Re Alvarez LPN - 09/28/2022 12:07 PM EST Michael called stating he has completed the Z-francisco Dr. Vásquez prescribed on 09/24/22 for complaints [...] Olson. Re Alvarez LPN documented in this encounterSamaritan North Health Center12-07-2022 Miscellaneous Notes* Telephone Encounter - DAI Carrington [...] as appropriate. DARYA Carrington documented in this encounterSamaritan North Health Center12-07-2022 Miscellaneous Notes* Telephone Encounter - Re Alvarez LPN - 09/26/2022 9:11 AM EST I notified Michael of his rescheduled new start for 10/08/22 at 12:45. He states he has a MRI 10/01/22 and I reminded him of his follow up with Dr. Anderson 10/02/22. He denies questions at this time. Re Alvarez LPN documented in this encounterSamaritan North Health Center12-06-2022 Miscellaneous Notes* Telephone Encounter - Denisha Duarte RN - 09/25/2022 1:57 PM EST Update: Pt's XRT to start on 10/08. MRI scheduled [place] [facility] [place]. Pt to see Dr Anderson [...] week? Denisha Duarte RN documented in this encounterSamaritan North Health Center12-06-2022 History of Present illness Narrative* Hoa Owen, [...] no changes reported, weight stable per patient Leslie Body Weight: 79.9kg Estimated kilocalorie needs: 5153-0884 kilocalories determined by 25-30 kcal/kg Estimated protein needs: 80-96 grams determined by 1.0-1.2 g/kg Leslie weight Estimated fluid needs: ~5270-7050 milliliters based on 1 mL per kcal [...] Medications Medication Sig Dispense Refill azithromycin (ZITHROMAX Z-FRANCISCO) 250 mg tablet Take two (2) tablets [...] up: will continue to follow Referred/Supervised by: Yesi/Engeler MNT Billing Type: Initial Assess/15 min 2 units Time Spent with Patient: 30 minutes Signed by: Hoa Owen MS, RDN, LD documented in this encounterSamaritan North Health Center12-05-2022 Miscellaneous Notes* Telephone Encounter - Lucina Becerra Sec - 09/24/2022 1:02 PM EST Michael is scheduled with Dr Anderson on 10-02-22 per Hazel Ríos. Pt notified * Telephone Encounter - Lucina Diggs - 09/21/2022 9:12 AM EST Info out to Hazel Ríos for an appt. * Telephone Encounter - Minerva Anderson MD - 09/20/2022 5:05 PM EST Yes, predominantly I would like to see him back after the PET. Thanks, BRM * Telephone Encounter - Lucina Becerra Sec - 09/20/2022 12:58 PM EST Sim is scheduled for 09-24-22 Pet scan is scheduled for 09-25-22 MRI at [facility] not until 10-11-22. Just want to confirm that you want to see the patient back the week of 10-01. Thank you for your help. documented in this encounterSamaritan North Health Center12-05-2022 History of Present illness Narrative* Dania Vásquez MD - 09/24/2022 12:00 AM EST KENANMERVAT Tim [id number] 09/24/2022 [facility] Department of Radiation Oncology Treatment Planning Note [...] Vásquez M.D. 0:18 AM documented in this encounterSamaritan North Health Center12-01-2022 Nurse Note* Sonam Horowitz RN - 09/20/2022 8:53 AM EST Radiation Therapy - Patient Education Note PATIENT NAME: Mervat Damon PATIENT September 20, 2022 [facility] [place] FACILITY/LOCATION: [facility] READINESS TO LEARN Cognitive Ability: Alert and [...] Referral (recommendation): Dietitian - Concurrent Patient Was approved? No Signed by: Sonam Horowitz RN documented in this encounterSamaritan North Health Center12-01-2022 History of Present illness Narrative* G Saeed Vásquez MD - 09/20/2022 7:46 AM EST Radiation Oncology - New Patient/Consult Note PATIENT NAME: Mervat Damon PATIENT REQUESTING PROVIDER: .Dr. Anderson DIAGNOSIS: Rectal cancer ,adenocarcinoma of the lower rectum MRI staged [id number] HPI: 71 year old male who presents [...] 30% circumferential involvement. Patient was seen by [facility] colorectal surgery, Dr. Troy. He underwent CT [...] ,adenocarcinoma of the lower rectum MRI staged [id number] Patient is still undergoing staging. He has [...] Lorenzo Olson [address] [place] [address] Minerva Anderson ([facility]) [address] [place] [address] [place] [address] documented in this encounterSamaritan North Health Center11-29-2022 Miscellaneous Notes* Telephone Encounter - Lucy Memo Sec - 09/18/2022 12:[address] Cortes from [facility] called regarding patient please call at your convience thanks [phone] documented in this encounterSamaritan North Health Center11-28-2022 History of Present illness Narrative* Minerva Anderson MD - 09/17/2022 6:57 AM EST [...] confirmed adenocarcinoma. The patient was referred to [facility] colorectal surgery (Dr. Troy) for further management. [...] colorectal cancer. 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 MEDICATIONS: Current Outpatient Medications Medication Sig ELIQUIS [...] swelling, and atrophy. PATHOLOGY: 08/20/2022 [place] Adenocarcinoma of colon (mass at anal verge) Mismatch repair gene -normal expression RADIOLOGY/OTHER STUDIES: 09/11/2022 MRI pelvis ([facility]) Low rectal neoplasm with suspected early invasion of the internal anal sphincter at the upper canal(MRI category T3b, N0). Few nonenlarged 2 to 3 mm mesorectal lymph nodes. No suspicious lymphadenopathy. 09/11/2022 CT chest, abdomen, pelvis ([facility]) Possible low-attenuation lesion right hepatic lobe under [...] years. No evidence of ongoing thromboembolic disease. Minerva Anderson MD CC: Dr. Mervat Slaughter ([facility] [place]); Dr. Thalia Troy ([facility] Colorectal Surgery) documented in this encounterSamaritan North Health Center11-18-2022 Miscellaneous Notes* Telephone Encounter - Toshia Buenrostro - 09/07/2022 12:47 PM EST Patient called back & is scheduled on 09/17/2022@2:30 pm for BRM. Toshia Buenrostro * Telephone Encounter - Toshia Buenrostro - 09/07/2022 9:51 AM EST Lvm for patient to call back to schedule with Dr Anderson. Schedule out a couple of days after MRI and CT. Toshia Buenrostro * Telephone Encounter - Lauren Thurman RN - 09/07/2022 9:41 AM EST Pt called and is scheduled for CT scan and MRI Saturday09/11/22 at 11:30 am at [facility]. PSS: Please call and schedule pt for follow up with Dr. Anderson. Please give it a couple days between CT and MRI so we have reports back from [place]. Thanks you! Lauren Murrell, RN * Telephone Encounter - Minal Corey [...] Thank you, Minal * Telephone Encounter - Minerva Anderson MD - 09/06/2022 12:35 PM EST I would need to see records before making any recommendations concerning appointment timing. I would at least need path reports and baseline CT scans. Thanks, BRM * Telephone Encounter - Minal Corey RN - 09/06/2022 11:54 AM EST Pt's friend Alida Hafsa called in to ask if BRM would see pt. I called and spoke with the pt andhe was recently diagnosed with adenocarcinoma of rectum at [facility], by Dr Thalia Troy. Pt has [...] you, Minal Corey RN documented in this encounterSamaritan North Health Center11-16-2022 NoteSubjective Patient ID: Mervat Damon is a 71 [...] Referral Reason: Specialty Services Required Referral Location: [facility] Requested Specialty: Oncology Number of Visits Requested: 1 Will get CEA today and will have MRI and CT scans soon. Once staging is complete we will discuss plan. No results found for this or any previous visit (from the past 36 hour(s)). No follow-ups on file.[facility]11-02-2022 Note Attestation signed by Thalia Troy [...] and internal hemorrhoids. He was evaluated at [facility] on 08/20/22 via flexible sigmoidoscopy demonstrating a [...] flexible sigmoidoscopy Patient to contact office via mychart or telephone in one week to update on progress, biopsy results No diagnosis found. No orders of the defined types were placed in this encounter. No results found for this or any previous visit (from the past 36 hour(s)). No follow-ups on file.[facility]10-31-2022 Evaluation + Plan noteExtracted from: Title:Post-anesthesia - General Author:Jose Sevilla DO Date:08/20/22 Plan Transfer/ Discharge: Condition stable. Extracted from: Title:Pre-anesthesia - Endoscopy Author:Jose Birmingham Jr., DO Date:08/20/22 Plan [place] [employer] Anesthesiologists (ASA) physical status classification: Class III. Anesthetic Preoperative Plan Anesthesia: General. . Anesthetic plan, risks, benefits, and alternatives discussed with the patient and/or family. Patient verbalized understanding. Future Appointments Appointment Date:09/27/2022 01:00:00 PM Scheduled Provider:ASHLEY TRINIDAD PA-C Location:[facility] Appointment Type:URO Office Visit Appointment Date:10/03/2022 01:15:00 PM Scheduled Provider:Santiago Kogn MD Location:.Cardiology Clinic Appointment Type:Cardiology Follow Up (FT) Future Scheduled Tests Laboratory* PSA Total 09/28/21 Radiology* XR Abdomen 1 View 09/20/22 [facility]10-25-2022 Hospital Discharge instructions Follow Up Care 08/14/2022 09:27:21 With:Mervat SLAUGHTER Address: [address], [address] [place] [phone] (1) When:3 to 5 days [facility]08-11-2022 Hospital Discharge instructions Patient Education 05/31/2022 [...] frozen fruits, and frozen vegetables. Avoid buying dvjco-yh-fqf foods, such as pre-cut fruits and vegetables and pre-made salads. If possible, shop around to discover where you can find the best prices. Consider other retailers such as dollar stores, larger wholesale stores, local fruit and vegetable stands, and farmers markets. Do not shop when you are [...] 06/10/2015 Document Revised: 10/08/2018 Document Reviewed: 10/08/2018 [employer] Patient Education 2020 [employer]. 05/31/2022 13:03:45 BMI for Adults BMI for [...] height. This can be done either in [place]ian ([place] or metric measurements. Note that charts are available to help you find your BMI quickly and easily without having to do these calculations yourself. To calculate your BMI in [place]ian ([place] measurements, your health care provider will: [...] medical problems. BMI can be measured using Estonian measurements or metric measurements. To interpret your [...] 06/18/2005 Document Revised: 09/19/2018 Document Reviewed: 08/20/2018 [employer] Patient Education 2020 [employer] 05/31/2022 13:03:43 Dizziness Dizziness Dizziness is a [...] balance is fine. 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 Take uovr-rij-wgfeovm and prescription medicines only as told by [...] 04/02/2002 Document Revised: 10/10/2018 Document Reviewed: 11/09/2017 [employer] Patient Education 2020 [employer] 05/31/2022 13:03:39 Hypotension Hypotension As your heart [...] standing up suddenly after eating. Medicines Take snzt-xhs-oucweun and prescription medicines only as told by [...] 10/07/2006 Document Revised: 04/02/2019 Document Reviewed: 04/02/2019 [employer] Patient Education 2020 [employer] Follow Up Care 05/30/2022 10:32:48 With:VALERIE ROBERTS CNP Address: [address] [place] [address] [address] [place] [address] When:7 to 10 days only if needed [facility] [place] 11-26-2021 Hospital Discharge instructions Follow Up Care 09/15/2021 11:43:54 With:Santiago Kong MD Address: When:6 months Comments:Call for sooner apt with new/worsening symptoms [facility]06-14-2021 NotePROCEDURE: XR FOOT LT MIN 3 [...] Electronically authenticated by: SHANTEL COPELAND Date: 2021-04-03 13:38[facility]01-25-2020 Evaluation + Plan note Future Appointments Appointment Date:11/09/2022 03:00:00 PM Scheduled Provider: Location:FT.CARDIO Appointment Type:CV Echo (FT) Appointment Date:11/14/2022 01:45:00 PM Scheduled Provider:Santiago Kong MD Location:FT.Cardiology Clinic Appointment Type:Cardiology Follow Up (FT) Future Scheduled Tests Radiology* XR Abdomen 1 View 09/20/22 * Echo Transthoracic Complete 11/09/22 [facility] evaluation + Plan note Future Appointments Appointment Date:04/03/2022 11:30:00 AM Scheduled [facility]: [facility]Cardiology Follow Up (FT) Appointment Date:06/21/2022 09:00:00 AM Scheduled Provider:Edward Kaufman DO [facility] Type:ONC Office Visit 15 (FT) Appointment Date:09/27/2022 01:00:00 PM Scheduled Provider:ASHLEY TRINIDAD PA-C Location:[facility] Appointment Type:URO Office Visit Future Scheduled Tests Laboratory* PSA Total 09/28/21 Radiology* XR Abdomen 1 View 09[facility]20/22 [facility] Future Appointments Appointment Date:06/21/2022 09:00:00 AM Scheduled Provider:Edward Kaufman DO [facility] Type:ONC Office Visit 15 (FT) Appointment Date:09/27/2022 01:00:00 PM Scheduled Provider:ASHLEY TRINIDAD PA-C Location:[facility] Appointment Type:URO Office Visit Appointment Date:10/03/2022 01:15:00 PM Scheduled Provider:Santiago Kong MD [facility] Type:Cardiology Follow Up (FT) Future Scheduled Tests Laboratory* PSA Total 09/28/21 Radiology* XR Abdomen 1 View 09/20/22 [facility] Future Appointments Appointment Date:08/28/2022 12:00:00 PM Scheduled Provider:Libia Watson CNP Location[facility] Appointment Type:BADH Screening Appointment Date:09/27/2022 01:00:00 PM Scheduled Provider:ASHLEY TRINIDAD PA-C Location:[facility] Appointment Type:URO Office Visit Appointment Date:10/03/2022 01:15:00 PM Scheduled Provider:Santiago Kong MD [facility] Type:Cardiology Follow Up (FT) Future Scheduled Tests Laboratory* PSA Total 09/28/21 Radiology* XR Abdomen 1 View 09/20/22 [facility] Future Appointments Appointment Date:08/20/2022 07:30:00 AM Scheduled Provider: Location:[facility] Appointment Type:Surgery FT Appointment Date:09/27/2022 01:00:00 PM Scheduled Provider:ASHLEY TRINIDAD PA-C [facility] Office Visit Appointment Date:10/03/2022 01:15:00 PM Scheduled Provider:Santiago Knog MD [facility] Type:Cardiology Follow Up (FT) Future Scheduled Tests Laboratory* PSA Total 09/28/21 Radiology* XR Abdomen 1 View 09/20/22 [facility] [place] Evaluation + Plan note Future Appointments Appointment Date:10/17/2022 01:00:00 PM Scheduled Provider:ASHLEY TRINIDAD PA-C Location:[facility] Appointment Type:URO Office Visit Appointment Date:11/14/2022 01:45:00 PM Scheduled Provider:Santiago Kong MD [facility] Type:Cardiology Follow Up (FT) Future Scheduled Tests Radiology* XR Abdomen 1 View 09/20/22 * Echo Transthoracic Complete 10/03/22 [facility] Future Appointments Appointment Date:01/22/2023 03:30:00 PM Scheduled Provider:Santiago Kong MD [facility] Type:Cardiology Follow Up (FT) Future Scheduled Tests Radiology* XR Abdomen 1 View 09/20/22 [facility] Future Appointments Appointment Date:04/29/2023 08:45:00 AM Scheduled Provider:Cyndee SANCHEZ CNP [facility] Type:Cardiology Follow Up (FT) Future Scheduled Tests Radiology* XR Abdomen 1 View 09/20/22 [facility] Future Appointments Appointment Date:05/07/2023 01:30:00 PM Scheduled Provider:Bryon Cruz MD Location:[facility] Appointment Type:Pain Management - New (FT) Future Scheduled Tests Radiology* XR Abdomen 1 View 09/20/[address] [facility] Future Appointments Appointment Date:07/05/2023 10:30:00 AM Scheduled Provider: Location:[place]ICAL [place] Appointment Type:PT Re-Eval 45 (FT) Appointment Date:07/09/2023 07:00:00 AM Scheduled Provider: Location:[facility] [place] Appointment Type:PT 45 (FT) Appointment Date:07/12/2023 07:00:00 AM Scheduled Provider: Location:[place] Appointment Type:PT 45 (FT) Appointment Date:07/16/2023 07:00:00 AM Scheduled Provider: Location:[facility] Appointment Type:PT 45 (FT) Appointment Date:07/18/2023 03:00:00 PM Scheduled Provider: Location:[facility] Appointment Type:PT Re-Eval 45 (FT) Appointment Date:07/22/2023 06:45:00 AM Scheduled Provider: Location:[facility] Appointment Type:PT 45 (FT) Appointment Date:07/25/2023 10:00:00 AM Scheduled Provider: Location:[place] Appointment Type:PT Re-Eval 45 (FT) Future Scheduled Tests Radiology* XR Abdomen 1 View 09/20/[address] [facility] Future Appointments Appointment Date:11/01/2023 01:45:00 PM Scheduled Provider:Santiago Kong MD Location:FT[facility]Cardiology Clinic Appointment Type:Cardiology Follow Up (FT) Future Scheduled Tests Radiology* XR Abdomen 1 View 09/20/22 [facility] note* Diagnosis Rectal cancer (HCC)- Primary Malignant neoplasm of rectum Rheumatoid arthritis involving multiple sites, unspecified whether rheumatoid factor present (HCC) [facility] Diagnosis Rectal adenocarcinoma (HCC)- Primary Malignant neoplasm of rectum documented in this encounter [facility] note* Diagnosis Rectal adenocarcinoma (HCC)- Primary Malignant neoplasm of rectum [facility]* Diagnosis Rectal adenocarcinoma (HCC)- Primary Malignant neoplasm of rectum [facility] noteNo assessment information availableAd[facility] Work Phone: Evaluation note* Diagnosis Rectal cancer (HCC)- Primary Malignant neoplasm of rectum Abnormal PET scan of lung Nonspecific abnormal results of pulmonary system function study [facility] Adenopathy- Primary Enlargement of lymph nodes Adenopathy Enlargement of lymph nodes [facility] Diagnosis Adenopathy Enlargement of lymph nodes Adenopathy Enlargement of lymph nodes [facility] Diagnosis Rectal adenocarcinoma (HCC)- Primary Malignant neoplasm of rectum Adenopathy Enlargement of lymph nodes [facility] Diagnosis Adenopathy- Primary Enlargement of lymph nodes Rectal adenocarcinoma (HCC) Malignant neoplasm of rectum Rheumatoid arthritis involving multiple sites, unspecified whether rheumatoid factor present (HCC) Adenopathy Enlargement of lymph nodes [facility] [...] [facility] Diagnosis Neoplasm related pain (acute) (chronic)- Primary [facility] [...] (acute) (chronic) [facility] [...] gastrointestinal tract [facility] [...] of prostate [facility] [...] [facility] Diagnosis Neoplasm related pain (acute) (chronic) [facility] Diagnosis Hypokalemia- Primary Hypopotassemia [facility]* Diagnosis Rectal cancer (HCC) Malignant neoplasm of rectum documented in this encounter [facility] note* Diagnosis Rectal cancer (HCC)- Primary Malignant neoplasm of rectum Neoplasm related pain (acute) (chronic) Rheumatoid arthritis involving multiple sites, unspecified whether rheumatoid factor present (HCC) Acute deep vein thrombosis (DVT) of distal vein of left lower extremity (HCC) documented in this encounter [facility] note* Diagnosis Rectal cancer (HCC)- Primary Malignant neoplasm of rectum documented in this encounter [facility] note* Diagnosis Rectal cancer (HCC) Malignant neoplasm of rectum documented in this encounter [facility] note* Diagnosis Malignant neoplasm of rectum (HCC)- Primary Malignant neoplasm of rectum documented in this encounter [facility] note* Diagnosis Encounter for follow-up surveillance of rectal cancer- Primary Unspecified follow-up examination documented in this encounter [facility] note* Diagnosis Encounter for follow-up surveillance of rectal cancer Unspecified follow-up examination documented in this encounter [facility] note* Diagnosis Rectal cancer (HCC)- Primary Malignant neoplasm of rectum documented in this encounter [facility] note* Diagnosis Rectal cancer (HCC)- Primary Malignant neoplasm of rectum documented in this encounter [facility] note* Diagnosis Encounter for follow-up surveillance of rectal cancer- Primary Unspecified follow-up examination documented in this encounter [facility] general Narrative - Reported* Type Description Date [...] 2nd toe dudley int replacement - dr. Dexter Surgical History B/l Cataracts Late 2018 Hospitalization History see surg Hx [facility] Other Hospital course Narrative No data available for this section [facility] No data available for this section [facility] No data available for this section [facility] (n[facility]ative)* Outpatient Procedure (Routine) - Authorized Specialty Diagnoses / Procedures Referred By Contdoron t Referred To [facility] Diagnoses Adenopathy Procedures ECG COMPLETE ECG ROUTINE ECG W/LEAST 12 LDS W/I&R Hang Maier MD [address] [place] [address] [facility] [place] [facility] [place] [address] Referral ID Status Reason Start Date Expiration Date Visits Requested Visits Authorized [id number] Authorized Auto-Generat ed Referral 2023 1 1 [facility] for referral (narrative)* Diagnostic Procedure Only (Routine) - Pending Review Specialty Diagnoses / Procedures Referred By Contac t Referred To Contact US IMAGING Diagnoses Leg swelling Procedures US DVT LOWER LEFT DUP-SCAN XTR VEINS UNILATERAL/LIMITED STUDY Andree Hollis, AZAEL.SIGNALS ANALYST [address] [place] [address] [place] [address] Us Imaging Referral ID Status Reason Start Date Expiration Date Visits Requested Visits Authorized [id number] Pending Review Auto-Generat ed Referral 01/22/2023 02/21/2024 1 1 [facility] for referral (narrative)* Outpatient Procedure (Routine) - Pending Review Specialty Diagnoses / Procedures Referred By Contac t Referred To Contact [facility] Diagnoses Encounter for follow-up surveillance of rectal cancer Procedures SIGMOIDOSCOPY SIGMOIDOSCOPY FLX DX W/COLLJ SPEC BR/[place] [address] [place] [address] [facility] [place] [address] [place] [address] Referral ID Status Reason Start Date Expiration Date Visits Requested Visits Authorized [id number] Pending Review Auto-Generat ed Referral 07/24/2023 07/24/2024 1 1 T [facility] for referral (narrative)* Outpatient Procedure (Routine) - Closed Specialty Diagnoses / Procedures Referred By Contac t Referred To Contact [facility] Diagnoses Encounter for follow-up surveillance of rectal cancer Procedures SIGMOIDOSCOPY SIGMOIDOSCOPY FLX DX W/COLLJ [place] BR/[place] [address] [facility] [address] [place] [address] [address] Referral ID Status Reason Start Date Expiration Date V isits Requested Visits Authorized [id number] Closed Auto-Generate d Referral 05/03/2023 05/03/2024 1 1 [facility] for referral (narrative)* Outpatient Procedure (Routine) - Closed Specialty Diagnoses / Procedures Referred By Contac t Referred To Contact [facility] Diagnoses Rectal cancer (HCC) Procedures COLONOSCOPY DIAGNOSTIC COLONOSCOPY FLX DX W/[place] [address] [facility] [address] [place] [address] [place] [id number] Referral ID Status Reason Start Date Expiration Date V isits Requested Visits Authorized [id number] Closed Auto-Generate d Referral 02/07/2023 02/08/2024 1 1 [facility] for visit Narrative* Outpatient Procedure (Routine) - Closed Specialty Diagnoses / Procedures Referred By Contac t Referred To Contact [facility] Diagnoses Adenopathy Procedures ECG COMPLETE ECG ROUTINE ECG W/LEAST 12 LDS W/I&R Hang Maier MD [address] [place] [address] [facility] [place] [address] Referral ID Status Reason Start Date Expiration Date V isits Requested Visits Authorized [id number] Closed Auto-Generate d Referral 2022 2023 1 1 [facility] for visit Narrative* Outpatient Procedure (Routine) - Closed Specialty Diagnoses / Procedures Referred By Contac t Referred To Contact [facility] [place] Diagnoses Encounter for follow-up surveillance of rectal cancer Procedures SIGMOIDOSCOPY SIGMOIDOSCOPY FLX DX W/COLLJ SPEC BR/[place] [address] [address] [place] [address] [facility] [address] [place] [address] Referral ID Status Reason Start Date Expiration Date V isits Requested Visits Authorized [id number] Closed Auto-Generate d Referral 05/03/2023 05/03/2024 1 1 [facility] for visit Narrative* Outpatient Procedure (Routine) - Closed Specialty Diagnoses / Procedures Referred By Rosanne engle Referred To Contact [facility] Diagnoses Rectal cancer (HCC) Procedures COLONOSCOPY DIAGNOSTIC COLONOSCOPY FLX DX W/[place] [address] [address] [place] [address] [address] Referral ID Status Reason Start Date Expiration Date V isits Requested Visits Authorized [id number] Closed Auto-Generate d Referral 02/07/2023 02/08/2024 1 1 [facility] Summary Purpose Family History No Family History [...] Cervical stenosis of spine (M48.02) Referral Organization [facility] Referring Provider First Name Valencia Referring Provider Last Name Darin Referring Provider Specialty Nurse Pract itioner Referred Organization [facility] Referred Provider Shantel Langston Referred Address [address] [place], [place],[address] Referred Provider Specialty Neurology Referral Priority Routine General Notes Harika, Rika M 023 03:33:00 PM >Spoke with Dr. Cruz's office and Dr. Cruz does not them them or do they do them in their office. [facility] Central scheduling schedules them which she transferred me to Central Scheduling and they said that Dr. Langston comes in like twice a month and does them through [facility] but he is scheduled out to July. She said it would be better to send to his office Surekha Lopez 06/18/2023 03:46:05 PM > thank you for the letting me know, I was not aware that is the way they did it, can we update the referrals to go through [facility]? HarikaRika 06/19/2023 09:08:47 AM >OK, will do. Thank you. HarikaRika 06/19/2023 09:47:30 AM >Received today and waiting for office notes to be locked before sending referral HarikaRika 06/20/2023 09:43:21 AM >Office notes are locked. [facility] request us to fill out their form and attach to Referral and send it to them and they will call patient to schedule. Referral was sent [facility] Clinical Notes Office [phone] Reason 05/07/23 @ 1:30pm evaluate and treat Diagnosis 1 Cervical radiculopat hy (M54.12) Referral Organization [facility] Referring Provider First Name Valencia Referring Provider Last Name Darin Referring Provider Specialty Nurse Pract itionesonja Referred Organization [facility] Referred Provider Bryon Cruz Referred Address [address] [place], [place],[address] Referred Provider Specialty Pain Medicin e Referral Priority Routine Referral Appointment Date 2023-05-07 General Notes HarikaRika 04/12/ 023 10:03:13 AM >Received today. [facility] 's office request us to fill out form and fax referral to them and they will review the referral and call patient. Referral was fax. Rika Shabazz 04/19/2023 09:24:32 AM >Spoke with Jonah at [facility] 's office and patient has been scheduled for 05/07/23 @ 1:30pm Rika Shabazz 05/08/2023 11:42:50 AM >Spoke with Silvia at [facility] office and patient was seen. She transferred me to [facility] Medical Records to get office notes Rika Shabazz 05/08/2023 11:46:09 AM >Spoke with Elba at [facility] and she will fax the notes to us Rika Shabazz 05/08/2023 01:19:55 PM >Received consult notes Clinical Notes Office [phone] Reason 05/02/23 @ 2:00pm evaluate and treat - Left hip pain Diagnosis 1 Cervical radiculopat hy (M54.12) Referral Organization [facility] urosurgery Referring Provider First Name Valencia Referring Provider Last Name Darin Referring Provider Specialty Nurse Pract itioner Referred Organization [facility] Referred Provider Jakob Mora Jr. Referred Address ,[place],[address] Referred Provider Specialty Orthopedic S urgery Referral Priority Routine Referral Appointment Date 2023-05-02 General Notes Rika Shabazz 023 07:35:08 AM >Received today and referral was fax. They will review and call patient to schedule Rika Shabazz 04/19/2023 09:50:53 AM >Fax letter for appt update Rika Shabazz 05/01/2023 09:53:54 AM >Spoke with [facility] Orthopedic office and patient has been scheduled for 05/02/23 @ 2 Rika Shabazz 05/03/2023 08:50:48 AM >Reviewed [facility] Epic and patient went to appt but I do not think the office notes are complete yet Rika Shabazz 05/06/2023 07:52:53 AM >Received consult notes from [facility] Epic Clinical Notes Office [phone] Specialty Diagnoses / Procedures Referred By Rosanne t Referred To Contact CT IMAGING Diagnoses Malignant neoplasm of rectum (HCC) Procedures CT ABDOMEN W IVCON [place] ABDOMEN W/[place] [address] [address] [place] [address] Ct Imaging Referral ID Status Reason Start Date Expiration Date Visits Requested Visits Authorized [id number] Pending Review Auto-Generat ed Referral 05/03/2023 06/01/2024 1 1 Specialty Diagnoses / Procedures Referred By Contdoron t Referred To Contact CT IMAGING Diagnoses Malignant neoplasm of rectum (HCC) Procedures CT CHEST W IVCON DIAGNOSTIC COMPUTED TOMOGRAPHY THORAX W/[place] [address] [address] [place] [address] Ct Imaging Referral ID Status Reason Start Date Expiration Date Visits Requested Visits Authorized [id number] Pending Review Auto-Generat ed Referral 05/03/2023 06/01/2024 1 1 Specialty Diagnoses / Procedures Referred By Contac t Referred To Contact MR IMAGING Diagnoses Malignant neoplasm of rectum (HCC) Procedures MRI RECTUM WO/W IVCON MRI PELVIS W/O & W/[place] [address] [address] [place] [address] Mr Imaging Referral ID Status Reason Start Date Expiration Date Visits Requested Visits Authorized [id number] Pending Review Auto-Generat ed Referral 05/03/2023 06/01/2024 1 1 Specialty Diagnoses / Procedures Referred By Gailac t Referred To Contact [facility] Diagnoses Encounter for follow-up surveillance of rectal cancer Procedures SIGMOIDOSCOPY SIGMOIDOSCOPY FLX DX W/COLLJ SPEC BR/[place] [address] [address] [place] [address] [facility] [address] [place] [address] Referral ID Status Reason Start Date Expiration Date Visits Requested Visits Authorized [id number] Pending Review Auto-Generat ed Referral 05/03/2023 05/03/2024 1 1 Reason evaluate and treat Diagnosis 1 Cervical radiculopat hy (M54.12) Referral Organization [facility] urosurger Referring Provider First Name Valencia Referring Provider Last Name Darin Referring Provider Specialty Nurse Pract itioner Referred Organization [facility] Referred Provider Bryon Cruz Referred Address [address] [place] [phone] Referred Provider Specialty Anesthesiolo gy Referral Priority Routine Reason evaluate and treat - Left hip pain Diagnosis 1 Cervical radiculopat hy (M54.12) Referral Organization [facility] urosurgery Referring Provider First Name Valencia Referring Provider Last Name Torres Referring Provider Specialty Nurse Pract itioner Referred Organization [facility] Referred Provider Jakob Mora Jr. Referred Address ,[place], [place],[address] Referred Provider Specialty Orthopedic S urgery Referral Priority Routine Specialty Diagnoses / Procedures Referred By Contac t Referred To Contact MR IMAGING Diagnoses Malignant neoplasm of rectum (HCC) Procedures MRI RECTUM WO/W IVCON MRI PELVIS W/O & W/[place] [address] [address] [facility] [address] [place] [address] Mr Imaging Referral ID Status Reason Start Date Expiration Date Visits Requested Visits Authorized [id number] Authorized Auto-Generat ed Referral 02/07/2023 03/08/2024 1 1 Specialty Diagnoses / Procedures Referred By Contac t Referred To Contact [facility] Diagnoses Rectal cancer (HCC) Procedures COLONOSCOPY DIAGNOSTIC COLONOSCOPY FLX DX W/COLLJ SPEC [place] [address] [address] [facility] [address] [place] [address] [facility] [address] [place] [address] Referral ID Status Reason Start Date Expiration Date Visits Requested Visits Authorized [id number] Authorized Auto-Generat ed Referral 02/07/2023 02/08/2024 1 1 Specialty Diagnoses / Procedures Referred By Contac t Referred To Contact Colon and Rectal Surgery Diagnoses Rectal cancer (HCC) Procedures CONSULT [place] [address] [place] [address] [place] [address] [facility] [address] [place] [address] Referral ID Status Reason Start Date Expiration Date Visits Requested Visits Authorized [id number] Ref Not Required PCP Requested Referral 02/04/2023 02/04/2024 1 1 Specialty Diagnoses / Procedures Referred By Contac t Referred To Contact Gastroenterology Diagnoses Rectal cancer (HCC) Rectal bleeding Procedures CONSULT TO GASTROENTEROLOGY OFFICE/OUTPATIENT NEW HIGH MDM 60-74 MINUTES Andree Hollis, THREAD GRINDER TOOL.[address] [place] [address] Referral ID Status Reason Start Date Expiration Date Visits Requested Visits Authorized [id number] Authorized PCP Requested Referral 01/23/2023 01/23/2024 1 1 Specialty Diagnoses / Procedures Referred By Contac t Referred To Contact CT IMAGING Diagnoses Lung nodules Procedures CT CHEST W IVCON DIAGNOSTIC COMPUTED TOMOGRAPHY THORAX W/CONTRAST Minerva Anderson MD [address] [place] [address] [place] [address] Ct Imaging Referral ID Status Reason Start Date Expiration Date Visits Requested Visits Authorized [id number] Authorized Auto-Generat ed Referral 11/19/2022 12/19/2023 1 1 Specialty Diagnoses / Procedures Referred By Contac t Referred To Contact CT IMAGING Diagnoses Lung nodules Rectal cancer (HCC) Procedures CT ABD/PEL W IVCON CT ABD & PELVIS W/CONTRAST Minerva Anderson MD [address] [place] [address] [place] [address] Ct Imaging Referral ID Status Reason Start Date Expiration Date Visits Requested Visits Authorized [id number] Authorized Auto-Generat ed Referral 11/19/2022 12/19/2023 1 1 Specialty Diagnoses / Procedures Referred By Contac t Referred To Contact RADIATION ONCOLOGY Diagnoses Rectal adenocarcinoma (HCC) Procedures CT SIM PLANNING RADIATION ONCOLOGY THER RAD SIMULAJ-AIDED FIELD SETTING COMPLEX IMRT Dania Vásquez MD [address] [place] [address] [place] [address] [address] [place] [address] [place] [address] Referral ID Status Reason Start Date Expiration Date Visits Requested Visits Authorized [id number] Pending Review PCP Requested Referral 09/24/2022 12/23/2022 1 1 Specialty Diagnoses / Procedures Referred By Contac t Referred To Contact Radiation Oncology Diagnoses Rectal cancer (HCC) Procedures RAD/ONC CONSULT OFFICE/OUTPATIENT [facility] [place] HIGH MDM 60-74 MINUTES Minerva Anderson MD [address] [place] [address] [place] [address] Referral ID Status Reason Start Date Expiration Date Visits Requested Visits Authorized [id number] Authorized PCP Requested Referral 11/28/202 2 09/17/2023 1 1 Specialty Diagnoses / Procedures Referred By Contac t Referred To Contact MR IMAGING Diagnoses Rectal cancer (HCC) Procedures MRI ABDOMEN WO/W IVCON MRI ABDOMEN W/O & W/CONTRAST MATERIAL Minerva Anderson MD [address] [place] [address] [place] [address] Mr Imaging Referral ID Status Reason Start Date Expiration Date Visits Requested Visits Authorized [id number] Pending Review Auto-Generat ed Referral 2 10/17/2023 1 1 Specialty Diagnoses / Procedures Referred By Contac t Referred To Contact MOLECULAR & FUNCTIONAL IMAGING Diagnoses Rectal cancer (HCC) Procedures NM PET/CT SKULL-THIGH INITIAL PET IMAGING CT ATTENUATION SKULL BASE MID-THIGH Minerva Anderson MD [address] [place] [address] [place] [address] Molecular & Functional Imaging [address] [place] [address] Referral ID Status Reason Start Date Expiration Date Visits Requested Visits Authorized [id number] Authorized Auto-Generat ed Referral 2 10/17/2023 1 [...] immediately after leucovorin infusion is complete. EXP: 0912/27/22 Hazardous Chemotherapy Drug: Use appropriate PPE. Given [...] 1 dose, On Sat01/08/23 at 0900, EXP: 01/15/23899 Hazardous Chemotherapy Drug: Use appropriate PPE. Protect from Light. Apheresis and/or Portable Pump 01/08/2023 11:49 AM EDT 4,860 mg 2.2 mL/hr fluorouracil 729 mg injection (ADRUCIL) 729 mg (300 mg/m2 2.43 m2 Treatment Plan BSA from Recorded weight), INTRAVENOUS, ONCE, 1 dose, On Sat01/08/23 at 0900, Push over 2-4 minutes start immediately after leucovorin infusion is complete. EXP:01/10/23899 Hazardous Chemotherapy Drug: Use appropriate PPE. Given [...] with leucovorin. Approx Total Volume: mL EXP: 15301/22/23 Hazardous Chemotherapy Drug: Use appropriate PPE. Antineoplastic [...] 10 mg, INTRAVENOUS, ONCE, 1 dose, On Sat02/21/23 at 1130, Refrigerate. New Bag/Syringe/Bottle 02/21/2023 11:50 [...] content) DATE CREATED AUTHOR 08/09/2021 [facility] DATE CREATED AUTHOR AUTHOR'S ORGANIZ ATION 09/27/2022 [facility] DATE CREATED AUTHOR AUTHOR'S ORGANIZ ATION 10/14/2022 [facility] DATE CREATED AUTHOR AUTHOR'S ORGANIZ ATION 04/19/2023 [facility] DATE CREATED AUTHOR AUTHOR'S ORGANIZ ATION 08/16/2023 [facility] DATE CREATED AUTHOR AUTHOR'S ORGANIZ ATION 10/12/2023 [facility] DATE CREATED AUTHOR AUTHOR'S ORGANIZ ATION 10/25/2023 [facility] DATE CREATED AUTHOR AUTHOR'S ORGANIZ ATION 11/08/2023 [facility] DATE CREATED AUTHOR AUTHOR'S ORGANIZ ATION 11/22/2023 [facility] Care Team (unrecognized sect ion and content) Team Status: Active Member Role Status Dates Lorenzo Olson DO Primary Care Provider Active Team Status: Inactive Member Role Status Dates Lorenzo Olson DO Primary Care Provider Active JM Busby Attending Provider Active Acid Tester Relationship Specialty Start Date End Date Lorenzo Olson DO PCP - General Family Medicine 04/16/13 Acid Tester Relationship Specialty Start Date End Date Lorenzo Olson DO PCP - General Family Medicine 04/16/13 Acid Tester Relationship Specialty Start Date End Date Lorenzo Olson DO PCP - General Family Medicine 04/16/13 Acid Tester Relationship Specialty Start Date End Date Lorenzo Olson DO PCP - General Family Medicine 04/16/13 Acid Tester Relationship Specialty Start Date End Date Tomas, Lorenzo Dailey DO PCP - General Family Medicine 04/16/13 Acid Tester Relationship Specialty Start Date End Date Tomas Lorenzo Dailey DO PCP - General Family Medicine 04/16/13 Acid Tester Relationship Specialty Start Date End Date Tomas, Lorenzo Dailey DO PCP - General Family Medicine 04/16/13 Acid Tester Relationship Specialty Start Date End Date Tomas, Lorenzo Dailey DO PCP - General Family Medicine 04/16/13 Acid Tester Relationship Specialty Start Date End Date Tomas, Olrenzo S, DO PCP - General Family Medicine 04/16/13 Acid Tester Relationship Specialty Start Date End Date Tomas Lorenzo DaileyDO PCP - General Family Medicine 04/16/13 Acid Tester Relationship Specialty Start Date End Date Tomas Lorenzo DaileyDO PCP - General Family Medicine 04/16/13 Sera Forbes LSW Order Checker 09/26/22 Team Status: Inactive Member Role Status Dates Lorenzo Olson DO Primary Care Provider Active Minerva Anderson MD Attending Provider Active Acid Tester Relationship Specialty Start Date End Date Tomas Lorenzosaba Dailey DO PCP - General Family Medicine 04/16/13 Sera Forbes LSW Order Checker 09/26/22 Minerva Anderson MD [address] [place] [address] [place] [address] Physician Hematology/Oncology 10/01/22 Dania Vásquez MD [address] [place] [address] [place] [address] Physician Radiation Oncology 10/01/22 Andree Hollis, THREAD GRINDER TOOL.SIGNALS ANALYST [address] [facility] [place] [address] Nurse Practitioner Hematology/Oncology 10/01/22 Denisha Duarte, RN [address] [facility] [place] [address] Specialty Research Test Engine Operator Hematology/Oncology 10/01/22 Acid Tester Relationship Specialty Start Date End Date Lorenzo Olson DO PCP - General Family Medicine 04/16/13 Sera Forbes LSW Order Checker 09/26/22 Minerva Anderson MD [address] [facility] [address] [place], [place] [address] Physician Hematology/Oncology 10/01/22 Dania Vásquez MD [address] [facility] [place] [address] Physician Radiation Oncology 10/01/22 Andree Hollis, THREAD GRINDER TOOL.SIGNALS ANALYST [address] [facility] [place] [address] Nurse Practitioner Hematology/Oncology 10/01/22 Denisha Duarte, RN [address] [facility] [place] [address] Specialty Research Test Engine Operator Hematology/Oncology 10/01/22 Acid Tester Relationship Specialty Start Date End Date Lorenzo Olson DO PCP - General Family Medicine 04/16/13 Sera Forbes LSW Order Checker 09/26/22 Minerva Anderson MD [address] [facility] [address] [place], [place] [address] Physician Hematology/Oncology 10/01/22 Dania Vásquez MD [address] [facility] [place] [address] Physician Radiation Oncology 10/01/22 Andree Hollis, THREAD GRINDER TOOL.SIGNALS ANALYST [address] [facility] [place] [address] Nurse Practitioner Hematology/Oncology 10/01/22 Denisha Duarte, ALEXUS [address] [facility] [address] [place], [place] [address] Specialty Research Test Engine Operator Hematology/Oncology 10/01/22 Acid Tester Relationship Specialty Start Date End Date Lorenzo Olson DO PCP - General Family Medicine 04/16/13 Sera Forbes, DAI Order Checker 09/26/22 Minerva Anderson MD [address] [facility] [place] [address] Physician Hematology/Oncology 10/01/22 Dania Vásquez MD [address] [facility] [place] [address] Physician Radiation Oncology 10/01/22 Andree Hollis, THREAD GRINDER TOOL.SIGNALS ANALYST [address] [facility] [place] [address] Nurse Practitioner Hematology/Oncology 10/01/22 Denisha Duarte, ALEXUS [address] [facility] [place] [address] Specialty Research Test Engine Operator Hematology/Oncology 10/01/22 Acid Tester Relationship Specialty Start Date End Date Lorenzo Olson DO PCP - General Family Medicine 04/16/13 Sera Forbes LSW Order Checker 09/26/22 Minerva Anderson MD [address] [facility] [place] [address] Physician Hematology/Oncology 10/01/22 Dania Vásquez MD [address] [facility] [place] [address] Physician Radiation Oncology 10/01/22 Andree Hollis, THREAD GRINDER TOOL.SIGNALS ANALYST [address] [facility] [place] [address] Nurse Practitioner Hematology/Oncology 10/01/22 Denisha Duarte, RN [address] [facility] [place] [address] Specialty Research Test Engine Operator Hematology/Oncology 10/01/22 Acid Tester Relationship Specialty Start Date End Date Lorenzo Olson DO PCP - General Family Medicine 04/16/13 Sera Forbes LSW Order Checker 09/26/22 Minerva Anderson MD [address] [facility] [place] [address] Physician Hematology/Oncology 10/01/22 Dania Vásquez MD [address] [facility] [place] [address] Physician Radiation Oncology 10/01/22 Andree Hollis, THREAD GRINDER TOOL.SIGNALS ANALYST [address] [facility] [place] [address] Nurse Practitioner Hematology/Oncology 10/01/22 Denisha Duarte, ALEXUS [address] [facility] [place] [address] Specialty Research Test Engine Operator Hematology/Oncology 10/01/22 Acid Tester Relationship Specialty Start Date End Date Lorenzo Olson DO PCP - General Family Medicine 04/16/13 Sera Forbes LSW Order Checker 09/26/22 Minerva Anderson MD [address] [facility] [place] [address] Physician Hematology/Oncology 10/01/22 Dania Vásquez MD [address] [facility] [place] [address] Physician Radiation Oncology 10/01/22 Andree Hollis, THREAD GRINDER TOOL.[facility] [address] [facility] [place] [address] Nurse Practitioner Hematology/Oncology 10/01/22 Denisha Duarte, RN [address] [facility] [place] [address] Specialty Research Test Engine Operator Hematology/Oncology 10/01/22 Acid Tester Relationship Specialty Start Date End Date Lorenzo Olson DO PCP - General Family Medicine 04/16/13 Sera Forbes LSW Order Checker 09/26/22 Minerva Anderson MD [address] [facility] [place] [address] Physician Hematology/Oncology 10/01/22 Dania Vásquez MD [address] [facility] [place] [address] Physician Radiation Oncology 10/01/22 Andree Hollis, THREAD GRINDER TOOL.[facility] [address] [facility] [place] [address] Nurse Practitioner Hematology/Oncology 10/01/22 Denisha Duarte, ALEXUS [address] [facility] [place] [address] Specialty Research Test Engine Operator Hematology/Oncology 10/01/22 Acid Tester Relationship Specialty Start Date End Date Lorenzo Olson DO PCP - General Family Medicine 04/16/13 Sera Forbes LSW Order Checker 09/26/22 Minerva Anderson MD [address] [facility] [place] [address] Physician Hematology/Oncology 10/01/22 Dania Vásquez MD [address] [facility] [place] [address] Physician Radiation Oncology 10/01/22 Andree Hollis, THREAD GRINDER TOOL.SIGNALS ANALYST [address] [facility] [place] [address] Nurse Practitioner Hematology/Oncology 10/01/22 Denisha Duarte, ALEXUS [address] [facility] [place] [address] Specialty Research Test Engine Operator Hematology/Oncology 10/01/22 Acid Tester Relationship Specialty Start Date End Date Lorenzo Olson DO PCP - General Family Medicine 04/16/13 Sera Forbes [facility] Order Checker 09/26/22 Minerva Anderson MD [address] [facility] [place] [address] Physician Hematology/Oncology 10/01/22 Dania Vásquez MD [address] [facility] [place] [address] Physician Radiation Oncology 10/01/22 Andree Hollis, THREAD GRINDER TOOL.SIGNALS ANALYST [address] [facility] [place] [address] Nurse Practitioner Hematology/Oncology 10/01/22 Denisha Duarte, ALEXUS [address] [facility] [address] [place], [place] [address] Specialty Research Test Engine Operator Hematology/Oncology 10/01/22 Acid Tester Relationship Specialty Start Date End Date Lorenzo Olson DO PCP - General Family Medicine 04/16/13 Sera Forbes, [facility] Order Checker 09/26/22 Minerva Anderson MD [address] [facility] [address] [place], [place] [address] Physician Hematology/Oncology 10/01/22 Dania Vásquez MD [address] [facility] [address] [place], [place] [address] Physician Radiation Oncology 10/01/22 Andree Hollis, THREAD GRINDER TOOL.SIGNALS ANALYST [address] [facility] [place] [address] Nurse Practitioner Hematology/Oncology 10/01/22 Denisha Duarte, ALEXUS [address] [facility] [place] [address] Specialty Research Test Engine Operator Hematology/Oncology 10/01/22 Acid Tester Relationship Specialty Start Date End Date Tomas Lorenzosaba Dailey DO PCP - General Family Medicine 04/16/13 Sera Forbes [facility] Order Checker 09/26/22 Minerva Anderson MD [address] [facility] [place] [address] Physician Hematology/Oncology 10/01/22 Dania Vásquze MD [address] [facility] [place] [address] Physician Radiation Oncology 10/01/22 Andree Hollis, THREAD GRINDER TOOL.SIGNALS ANALYST [address] [facility] [place] [address] Nurse Practitioner Hematology/Oncology 10/01/22 Denisha Duarte, ALEXUS [address] [facility] [place] [address] Specialty Research Test Engine Operator Hematology/Oncology 10/01/22 Acid Tester Relationship Specialty Start Date End Date Lorenzo Olson DO PCP - General Family Medicine 04/16/13 Sera Forbes [employer]MI[employer] Order Checker 09/26/22 Minerva Anderson MD [address] [facility] [place] [address] Physician Hematology/Oncology 10/01/22 Dania Vásquez MD [address] [facility] [place] [address] Physician Radiation Oncology 10/01/22 Andree Hollis, THREAD GRINDER TOOL.SIGNALS ANALYST [address] [facility] [place] [address] Nurse Practitioner Hematology/Oncology 10/01/22 Denisha Duarte, ALEXUS [address] [facility] [place] [address] Specialty Research Test Engine Operator Hematology/Oncology 10/01/22 Acid Tester Relationship Specialty Start Date End Date Lorenzo Olson DO PCP - General Family Medicine 04/16/13 Sera Forbes [facility] Order Checker 09/26/22 Minerva Anderson MD [address] [facility] [place] [address] Physician Hematology/Oncology 10/01/22 Dania Vásquez MD [address] [facility] [place] [address] Physician Radiation Oncology 10/01/22 Andree Hollis, THREAD GRINDER TOOL.SIGNALS ANALYST [address] [facility] [place] [address] Nurse Practitioner Hematology/Oncology 10/01/22 Denisha Duarte, ALEXUS [address] [facility] [place] [address] Specialty Research Test Engine Operator Hematology/Oncology 10/01/22 Acid Tester Relationship Specialty Start Date End Date Lorenzo Olson DO PCP - General Family Medicine 04/16/13 Sera Forbes, [facility] Order Checker 09/26/22 Minerva Anderson MD [address] [facility] [place] [address] Physician Hematology/Oncology 10/01/22 Dania Vásquez MD [address] [facility] [place] [address] Physician Radiation Oncology 10/01/22 Andree Hollis, THREAD GRINDER TOOL.SIGNALS ANALYST [address] [facility] [place] [address] Nurse Practitioner Hematology/Oncology 10/01/22 Denisha Duarte, ALEXUS [address] [facility] [place] [address] Specialty Research Test Engine Operator Hematology/Oncology 10/01/22 Acid Tester Relationship Specialty Start Date End Date Lorenzo Olson DO PCP - General Family Medicine 04/16/13 Sera Forbes, [facility] Order Checker 09/26/22 Minerva Anderson MD [address] [facility] [place] [address] Physician Hematology/Oncology 10/01/22 Dania Vásquez MD [address] [facility] [place] [address] Physician Radiation Oncology 10/01/22 Andree Hollis, THREAD GRINDER TOOL.SIGNALS ANALYST [address] [facility] [place] [address] Nurse Practitioner Hematology/Oncology 10/01/22 Denisha Duarte, ALEXUS [address] [facility] [place] [address] Specialty Research Test Engine Operator Hematology/Oncology 10/01/22 Acid Tester Relationship Specialty Start Date End Date Lorenzo Olson DO PCP - General Family Medicine 04/16/13 Sera Forbes [facility] Order Checker 09/26/22 Minerva Anderson MD [address] [facility] [place] [address] Physician Hematology/Oncology 10/01/22 Dania Vásquez MD [address] [facility] [place] [address] Physician Radiation Oncology 10/01/22 Andree Hollis, THREAD GRINDER TOOL.SIGNALS ANALYST [address] [facility] [place] [address] Nurse Practitioner Hematology/Oncology 10/01/22 Denisha Duarte, ALEXUS [address] [facility] [place] [address] Specialty Research Test Engine Operator Hematology/Oncology 10/01/22 Acid Tester Relationship Specialty Start Date End Date Lorenzo Olson DO PCP - General Family Medicine 04/16/13 Sera Forbes [facility] Order Checker 09/26/22 Minerva Anderson MD [address] [facility] [place] [address] Physician Hematology/Oncology 10/01/22 Dania Vásquez MD [address] [facility] [place] [address] Physician Radiation Oncology 10/01/22 Andree Hollis, THREAD GRINDER TOOL.SIGNALS ANALYST [address] [facility] [place] [address] Nurse Practitioner Hematology/Oncology 10/01/22 Denisha Duarte, ALEXUS [address] [facility] [place] [address] Specialty Research Test Engine Operator Hematology/Oncology 10/01/22 Acid Tester Relationship Specialty Start Date End Date Lorenzo Olson DO PCP - General Family Medicine 04/16/13 Sera Forbes [facility] Order Checker 09/26/22 Minerva Anderson MD [address] [facility] [place] [address] Physician Hematology/Oncology 10/01/22 Dania Vásquez MD [address] [facility] [place] [address] Physician Radiation Oncology 10/01/22 Andree Hollis, THREAD GRINDER TOOL.SIGNALS ANALYST [address] [facility] [place] [address] Nurse Practitioner Hematology/Oncology 10/01/22 Denisha Duarte, ALEXUS [address] [facility] [place] [address] Specialty Research Test Engine Operator Hematology/Oncology 10/01/22 Acid Tester Relationship Specialty Start Date End Date Lorenzo Olson DO PCP - General Family Medicine 04/16/13 Sera Forbes [facility] Order Checker 09/26/22 Minerva Anderson MD [address] [facility] [place] [address] Physician Hematology/Oncology 10/01/22 Dania Vásquez MD [address] [facility] [place] [address] Physician Radiation Oncology 10/01/22 Andree Hollis, THREAD GRINDER TOOL.SIGNALS ANALYST [address] [facility] [address] [place], [place] [address] Nurse Practitioner Hematology/Oncology 10/01/22 Denisha Duarte, RN [address] [facility] [address] [place], [place] [address] Specialty Research Test Engine Operator Hematology/Oncology 10/01/22 Acid Tester Relationship Specialty Start Date End Date Lorenzo Olson DO PCP - General Family Medicine 04/16/13 Sera Forbes LSW Order Checker 09/26/22 Minerva Anderson MD [address] [facility] [place] [address] Physician Hematology/Oncology 10/01/22 Dania Vásquez MD [address] [facility] [place] [address] Physician Radiation Oncology 10/01/22 Andree Hollis, THREAD GRINDER TOOL.SIGNALS ANALYST [address] [facility] [place] [address] Nurse Practitioner Hematology/Oncology 10/01/22 Denisha Duarte, RN [address] [facility] [place] [address] Specialty Research Test Engine Operator Hematology/Oncology 10/01/22 Acid Tester Relationship Specialty Start Date End Date Lorenzo Olson DO PCP - General Family Medicine 04/16/13 Sera Forbes LSW Order Checker 09/26/22 Minerva Anderson MD [address] [facility] [place] [address] Physician Hematology/Oncology 10/01/22 Dania Vásquez MD [address] [facility] [place] [address] Physician Radiation Oncology 10/01/22 Andree Hollis, THREAD GRINDER TOOL.SIGNALS ANALYST [address] [facility] [place] [address] Nurse Practitioner Hematology/Oncology 10/01/22 Denisha Duarte, ALEXUS [address] [facility] [place] [address] Specialty Research Test Engine Operator Hematology/Oncology 10/01/22 Acid Tester Relationship Specialty Start Date End Date Lorenzo Olson DO PCP - General Family Medicine 04/16/13 Sera Forbes LSW Order Checker 09/26/22 Minerva Anderson MD [address] [facility] [place] [address] Physician Hematology/Oncology 10/01/22 Dania Vásquez MD [address] [facility] [place] [address] Physician Radiation Oncology 10/01/22 Andree Hollis, THREAD GRINDER TOOL.SIGNALS ANALYST [address] [facility] [place] [address] Nurse Practitioner Hematology/Oncology 10/01/22 Denisha Duarte, ALEXUS [address] [facility] [place] [address] Specialty Research Test Engine Operator Hematology/Oncology 10/01/22 Acid Tester Relationship Specialty Start Date End Date Lorenzo Olson DO PCP - General Family Medicine 04/16/13 Sera Forbes LSW Order Checker 09/26/22 Minerva Anderson MD [address] [facility] [place] [address] Physician Hematology/Oncology 10/01/22 Dania Vásquez MD [address] [facility] [place] [address] Physician Radiation Oncology 10/01/22 Andree Hollis, THREAD GRINDER TOOL.[facility] [address] [place] [address] Nurse Practitioner Hematology/Oncology 10/01/22 Denisha Duarte, ALEXUS [address] [facility] [place] [address] Specialty Research Test Engine Operator Hematology/Oncology 10/01/22 Acid Tester Relationship Specialty Start Date End Date Lorenzo Olson DO PCP - General Family Medicine 04/16/13 Sera Forbes LSW Order Checker 09/26/22 Minerva Anderson MD [address] [facility] [place] [address] Physician Hematology/Oncology 10/01/22 Dania Vásquez MD [address] [facility] [place] [address] Physician Radiation Oncology 10/01/22 Andree Hollis, THREAD GRINDER TOOL.[facility] [address] [place] [address] Nurse Practitioner Hematology/Oncology 10/01/22 Denisha Duarte, ALEXUS [address] [facility] [place] [address] Specialty Research Test Engine Operator Hematology/Oncology 10/01/22 Acid Tester Relationship Specialty Start Date End Date Lorenzo Olson DO PCP - General Family Medicine 04/16/13 Sera Forbes LSW Order Checker 09/26/22 Minerva Anderson MD [address] [facility] [place] [address] Physician Hematology/Oncology 10/01/22 Dania Vásquez MD [address] [facility] [place] [address] Physician Radiation Oncology 10/01/22 Andree Hollis, THREAD GRINDER TOOL.SIGNALS ANALYST [address] [facility] [place] [address] Nurse Practitioner Hematology/Oncology 10/01/22 Denisha Duarte, RN [address] [facility] [place] [address] Specialty Research Test Engine Operator Hematology/Oncology 10/01/22 Acid Tester Relationship Specialty Start Date End Date Lorenzo Olson DO PCP - General Family Medicine 04/16/13 Sera Forbes LSW Order Checker 09/26/22 Minerva Anderson MD [address] [facility] [place] [address] Physician Hematology/Oncology 10/01/22 Dania Vásquez MD [address] [facility] [place] [address] Physician Radiation Oncology 10/01/22 Andree Hollis, THREAD GRINDER TOOL.[facility] [address] [place] [address] Nurse Practitioner Hematology/Oncology 10/01/22 Denisha Duarte, ALEXUS [address] [facility] [place] [address] Specialty Research Test Engine Operator Hematology/Oncology 10/01/22 Acid Tester Relationship Specialty Start Date End Date Lorenzo Olson DO PCP - General Family Medicine 04/16/13 Sera Forbes LSW Order Checker 09/26/22 Minerva Anderson MD [address] [facility] [place] [address] Physician Hematology/Oncology 10/01/22 Dania Vásquez MD [address] [facility] [place] [address] Physician Radiation Oncology 10/01/22 Andree Hollis, THREAD GRINDER TOOL.[facility] [address] [place] [address] Nurse Practitioner Hematology/Oncology 10/01/22 Denisha Duarte, ALEXUS [address] [facility] [place] [address] Specialty Research Test Engine Operator Hematology/Oncology 10/01/22 Acid Tester Relationship Specialty Start Date End Date Lorenzo Olson DO PCP - General Family Medicine 04/16/13 Sera Forbes LSW Order Checker 09/26/22 Minerva Anderson MD [address] [facility] [place] [address] Physician Hematology/Oncology 10/01/22 Dania Vásquez MD [address] [facility] [place] [address] Physician Radiation Oncology 10/01/22 Andree Hollis, THREAD GRINDER TOOL.[facility] [address] [place] [address] Nurse Practitioner Hematology/Oncology 10/01/22 Denisha Duarte, ALEXUS [address] [facility] [place] [address] Specialty Research Test Engine Operator Hematology/Oncology 10/01/22 Acid Tester Relationship Specialty Start Date End Date Lorenzo Olson DO PCP - General Family Medicine 04/16/13 Sera Forbes LSW Order Checker 09/26/22 Minerva Anderson MD [address] [facility] [place] [address] Physician Hematology/Oncology 10/01/22 Dania Vásquez MD [address] [facility] [place] [address] Physician Radiation Oncology 10/01/22 Andree Hollis, THREAD GRINDER TOOL.SIGNALS ANALYST [address] [facility] [place] [address] Nurse Practitioner Hematology/Oncology 10/01/22 Denisha Duarte, ALEXUS [address] [facility] [place], [place] [address] Specialty Research Test Engine Operator Hematology/Oncology 10/01/22 Acid Tester Relationship Specialty Start Date End Date Lorenzo Olson DO PCP - General Family Medicine 04/16/13 Sera Forbes [facility] Order Checker 09/26/22 Minerva Anderson MD [address] [facility] [place] [address] Physician Hematology/Oncology 10/01/22 Dania Vásquez MD [address] [facility] [place] [address] Physician Radiation Oncology 10/01/22 Andree Hollis, THREAD GRINDER TOOL.SIGNALS ANALYST [address] [facility] [place] [address] Nurse Practitioner Hematology/Oncology 10/01/22 Denisha Duarte, ALEXUS [address] [facility] [place] [address] Specialty Research Test Engine Operator Hematology/Oncology 10/01/22 Acid Tester Relationship Specialty Start Date End Date Lorenzo Olson DO PCP - General Family Medicine 04/16/13 Sera Forbes LSW Order Checker 09/26/22 Minerva Anderson MD [address] [facility] [address] [address] [place], [place] [address] Physician Hematology/Oncology 10/01/22 Dania Vásquez MD [address] [facility] [place] [address] Physician Radiation Oncology 10/01/22 Andree Hollis, THREAD GRINDER TOOL.SIGNALS ANALYST [address] [facility] [place] [address] Nurse Practitioner Hematology/Oncology 10/01/22 Denisha Duarte, ALEXUS [address] [facility] [place] [address] Specialty Research Test Engine Operator Hematology/Oncology 10/01/22 Acid Tester Relationship Specialty Start Date End Date Tomas Lorenzosaba Dailey DO PCP - General Family Medicine 04/16/13 Sera Forbes LSW Order Checker 09/26/22 Minerva Anderson MD [address] [facility] [place] [address] Physician Hematology/Oncology 10/01/22 Dnaia Vásquez MD [address] [facility] [address] [place], [place] [address] Physician Radiation Oncology 10/01/22 Andree Hollis, THREAD GRINDER TOOL.SIGNALS ANALYST [address] [facility] [place] [address] Nurse Practitioner Hematology/Oncology 10/01/22 Denisha Duarte, ALEXUS [address] [facility] [place] [address] Specialty Research Test Engine Operator Hematology/Oncology 10/01/22 Acid Tester Relationship Specialty Start Date End Date Lorenzo Olson DO PCP - General Family Medicine 04/16/13 Sera Forbes LSW Order Checker 09/26/22 Minerva Anderson MD [address] [facility] [address] [facility] [address] [place], [place] [address] Physician Hematology/Oncology 10/01/22 Dania Vásquez MD [address] [facility] [place] [address] Physician Radiation Oncology 10/01/22 Andree Hollis, THREAD GRINDER TOOL.SIGNALS ANALYST [address] [facility] [place] [address] Nurse Practitioner Hematology/Oncology 10/01/22 Denisha Duarte, ALEXUS [address] [facility] [place] [address] Specialty Research Test Engine Operator Hematology/Oncology 10/01/22 Acid Tester Relationship Specialty Start Date End Date Lorenzo Olson DO PCP - General Family Medicine 04/16/13 Sera Forbes PHYSICAL BIOCHEMIST Order Checker 09/26/22 Minerva Anderson MD [address] [facility] [place] [address] Physician Hematology/Oncology 10/01/22 Dania Vásquez MD [address] [facility] [place] [address] Physician Radiation Oncology 10/01/22 Andree Hollis, THREAD GRINDER TOOL.SIGNALS ANALYST [address] [facility] [place] [address] Nurse Practitioner Hematology/Oncology 10/01/22 Denisha Duarte, ALEXUS [address] [facility] [place] [address] Specialty Research Test Engine Operator Hematology/Oncology 10/01/22 Acid Tester Relationship Specialty Start Date End Date Lorenzo Olson DO PCP - General Family Medicine 04/16/13 Sera Forbes, PHYSICAL BIOCHEMIST Order Checker 09/26/22 Minerva Anderson MD [address] [facility] [place] [address] Physician Hematology/Oncology 10/01/22 Dania Vásquez MD [address] [facility] [place] [address] Physician Radiation Oncology 10/01/22 Andree Hollis, THREAD GRINDER TOOL.SIGNALS ANALYST [address] [facility] [place] [address] Nurse Practitioner Hematology/Oncology 10/01/22 Denisha Duarte, ALEXUS [address] [facility] [place] [address] Specialty Research Test Engine Operator Hematology/Oncology 10/01/22 Acid Tester Relationship Specialty Start Date End Date Lorenzo Olson DO PCP - General Family Medicine 04/16/13 Sera Forbes, [facility] Order Checker 09/26/22 Minerva Anderson MD [address] [facility] [place] [address] Physician Hematology/Oncology 10/01/22 Dania Vásquez MD [address] [facility] [place] [address] Physician Radiation Oncology 10/01/22 Andree Hollis, THREAD GRINDER TOOL.SIGNALS ANALYST [address] [facility] [place] [address] Nurse Practitioner Hematology/Oncology 10/01/22 Denihsa Duarte, RN [address] [facility] [place] [address] Specialty Research Test Engine Operator Hematology/Oncology 10/01/22 Acid Tester Relationship Specialty Start Date End Date Lorenzo Olson DO PCP - General Family Medicine 04/16/13 Sera Forbes, [facility] Order Checker 09/26/22 Minerva Anderson MD [address] [facility] [place] [address] Physician Hematology/Oncology 10/01/22 Dania Vásquez MD [address] [facility] [address] [facility] [address] [place], [place] [address] Physician Radiation Oncology 10/01/22 Andree Hollis, THREAD GRINDER TOOL.SIGNALS ANALYST [address] [facility] [place] [address] Nurse Practitioner Hematology/Oncology 10/01/22 Denisha Duarte, ALEXUS [address] [facility] [place] [address] Specialty Research Test Engine Operator Hematology/Oncology 10/01/22 Chelsie Ríos, RN Specialty Research Test Engine Operator Colon and Rectal Surgery 02/18/23 02/19/28 Acid Tester Relationship Specialty Start Date End Date Lorenzo Olson DO PCP - General Family Medicine 04/16/13 Sera Forbes, [facility] Order Checker 09/26/22 Minerva Anderson MD [address] [facility] [address] [facility] [address] [place], [place] [address] Physician Hematology/Oncology 10/01/22 Dania Vásquez MD [address] [facility] [place] [address] Physician Radiation Oncology 10/01/22 Andree Hollis, THREAD GRINDER TOOL.SIGNALS ANALYST [address] [facility] [place] [address] Nurse Practitioner Hematology/Oncology 10/01/22 Denisha Duarte, ALEXUS [address] [place] [address] [place] [address] Specialty Research Test Engine Operator Hematology/Oncology 10/01/22 Chelsie Ríos, RN Specialty Research Test Engine Operator Colon and Rectal Surgery 02/18/23 02/19/28 Acid Tester Relationship Specialty Start Date End Date Lorenzo Olson DO PCP - General Family Medicine 04/16/13 Sera Forbes LSW Order Checker 09/26/22 Minerva Anderson MD [address] [place] [address] [place] [address] Physician Hematology/Oncology 10/01/22 Dania Vásquez MD [address] [place] [address] [place] [address] Physician Radiation Oncology 10/01/22 Andree Hollis, THREAD GRINDER TOOL.SIGNALS ANALYST [address] [facility] [place] [address] Nurse Practitioner Hematology/Oncology 10/01/22 Denisha Duarte, ALEXUS [address] [place] [address] [place] [address] Specialty Research Test Engine Operator Hematology/Oncology 10/01/22 Chelsie Ríos, RN Specialty Research Test Engine Operator Colon and Rectal Surgery 02/18/23 02/19/28 Acid Tester Relationship Specialty Start Date End Date Lorenzo Olson DO PCP - General Family Medicine 04/16/13 Sera Forbes LSW Order Checker 09/26/22 Minerva Anderson MD [address] [facility] [place] [address] Physician Hematology/Oncology 10/01/22 Dania Vásquez MD [address] [facility] [place] [address] Physician Radiation Oncology 10/01/22 Andree Hollis, THREAD GRINDER TOOL.[facility] [address] [facility] [place] [address] Nurse Practitioner Hematology/Oncology 10/01/22 Denisha Duarte, ALEXUS [address] [place] [address] [place] [address] Specialty Research Test Engine Operator Hematology/Oncology 10/01/22 Chelsie Ríos, RN Specialty Research Test Engine Operator Colon and Rectal Surgery 02/18/23 02/19/28 Acid Tester Relationship Specialty Start Date End Date Lorenzo Olson DO PCP - General Family Medicine 04/16/13 Sera Forbes LSW Order Checker 09/26/22 Minerva Anderson MD [address] [facility] [place] [address] Physician Hematology/Oncology 10/01/22 Dania Vásquez MD [address] [place] [address] [place] [address] Physician Radiation Oncology 10/01/22 Andree Hollis, THREAD GRINDER TOOL.[facility] [address] [facility] [place] [address] Nurse Practitioner Hematology/Oncology 10/01/22 Denisha Duarte, ALEXUS [address] [place] [address] [place] [address] Specialty Research Test Engine Operator Hematology/Oncology 10/01/22 Chelsie Ríos, RN Specialty Research Test Engine Operator Colon and Rectal Surgery 02/18/23 02/19/28 Acid Tester Relationship Specialty Start Date End Date Lorenzo Olson DO PCP - General Family Medicine 04/16/13 Sera Forbes LSW Order Checker 09/26/22 Minerva Anderson MD [address] [facility] [address] [place], [place] [address] Physician Hematology/Oncology 10/01/22 Dania Vásquez MD [address] [facility] [place] [address] Physician Radiation Oncology 10/01/22 Andree Hollis, THREAD GRINDER TOOL.SIGNALS ANALYST [address] [facility] [place] [address] Nurse Practitioner Hematology/Oncology 10/01/22 Deinsha Duarte, ALEXUS [address] [facility] [place] [address] Specialty Research Test Engine Operator Hematology/Oncology 10/01/22 Chelsie Ríos RN Specialty Research Test Engine Operator Colon and Rectal Surgery 02/18/23 02/19/28 Acid Tester Relationship Specialty Start Date End Date Lorenzo Olson DO PCP - General Family Medicine 04/16/13 Sera Forbes PHYSICAL BIOCHEMIST Order Checker 09/26/22 Minerva Anderson MD [address] [facility] [place] [address] Physician Hematology/Oncology 10/01/22 Dania Vásquez MD [address] [facility] [place] [address] Physician Radiation Oncology 10/01/22 Andree Hollis, THREAD GRINDER TOOL.SIGNALS ANALYST [address] [facility] [place] [address] Nurse Practitioner Hematology/Oncology 10/01/22 Denisha Duarte, RN [address] [facility] [address] [place], [place] [address] Specialty Research Test Engine Operator Hematology/Oncology 10/01/22 Chelsie Ríos, RN Specialty Research Test Engine Operator Colon and Rectal Surgery 02/18/23 02/19/28 Acid Tester Relationship Specialty Start Date End Date Lorenzo Olson DO PCP - General Family Medicine 04/16/13 Sera Forbes, [facility] Order Checker 09/26/22 Minerva Anderson MD [address] [facility] [address] [facility] [address] [place], [place] [address] Physician Hematology/Oncology 10/01/22 Dania Vásquez MD [address] [facility] [place] [address] Physician Radiation Oncology 10/01/22 Andree Hollis, THREAD GRINDER TOOL.SIGNALS ANALYST [address] [facility] [place] [address] Nurse Practitioner Hematology/Oncology 10/01/22 Denisha Duarte, ALEXUS [address] [facility] [place] [address] Specialty Research Test Engine Operator Hematology/Oncology 10/01/22 Chelsie Ríos, RN Specialty Research Test Engine Operator Colon and Rectal Surgery 02/18/23 02/19/28 Acid Tester Relationship Specialty Start Date End Date Lorenzo Olson DO PCP - General Family Medicine 04/16/13 Sera Forbes, [facility] Order Checker 09/26/22 Minerva Anderson MD [address] [facility] [place] [address] Physician Hematology/Oncology 10/01/22 Dania Vásquez MD [address] [facility] [place] [address] Physician Radiation Oncology 10/01/22 Andree Hollis, THREAD GRINDER TOOL.SIGNALS ANALYST [address] [facility] [place] [address] Nurse Practitioner Hematology/Oncology 10/01/22 Denisha Duarte, ALEXUS [address] [facility] [place] [address] Specialty Research Test Engine Operator Hematology/Oncology 10/01/22 Chelsie Ríos, RN Specialty Research Test Engine Operator Colon and Rectal Surgery 02/18/23 02/19/28 Acid Tester Relationship Specialty Start Date End Date Lorenzo Olson DO PCP - General Family Medicine 04/16/13 Sera Forbes LSW Order Checker 09/26/22 Minerva Anderson MD [address] [facility] [place] [address] Physician Hematology/Oncology 10/01/22 Dania Vásquez MD [address] [facility] [place] [address] Physician Radiation Oncology 10/01/22 Andree Hollis, THREAD GRINDER TOOL.SIGNALS ANALYST [address] [facility] [place] [address] Nurse Practitioner Hematology/Oncology 10/01/22 Denisha Duarte, ALEXUS [address] [facility] [place] [address] Specialty Research Test Engine Operator Hematology/Oncology 10/01/22 Chelsie Ríos, RN Specialty Research Test Engine Operator Colon and Rectal Surgery 02/18/23 02/19/28 Acid Tester Relationship Specialty Start Date End Date Lorenzo Olson DO PCP - General Family Medicine 04/16/13 Sera Forbes LSW Order Checker 09/26/22 Minerva Anderson MD [address] [facility] [place] [address] Physician Hematology/Oncology 10/01/22 Dania Vásquez MD [address] [facility] [address] [place], [place] 3[address] Physician Radiation Oncology 10/01/22 Andree Hollis, THREAD GRINDER TOOL.SIGNALS ANALYST [address] [facility] [place] [address] Nurse Practitioner Hematology/Oncology 10/01/22 Denisha Duarte, ALEXUS [address] [facility] [place] [address] Specialty Research Test Engine Operator Hematology/Oncology 10/01/22 Chelsie Ríos, RN Specialty Research Test Engine Operator Colon and Rectal Surgery 02/18/23 02/19/28 Acid Tester Relationship Specialty Start Date End Date Lorenzo Olson DO PCP - General Family Medicine 04/16/13 Sera Forbes LSW Order Checker 09/26/22 Minerva Anderson MD [address] [facility] [place] [address] Physician Hematology/Oncology 10/01/22 Dania Vásquez MD [address] [facility] [place] [address] Physician Radiation Oncology 10/01/22 Andree Hollis, THREAD GRINDER TOOL.[facility] [address] [facility] [place] [address] Nurse Practitioner Hematology/Oncology 10/01/22 Denisha Duarte, ALEXUS [address] [facility] [place] [address] Specialty Research Test Engine Operator Hematology/Oncology 10/01/22 Chelsie Ríos, RN Specialty Research Test Engine Operator Colon and Rectal Surgery 02/18/23 02/19/28 Acid Tester Relationship Specialty Start Date End Date Lorenzo Olson DO PCP - General Family Medicine 04/16/13 Sera Forbes LSW Order Checker 09/26/22 Minerva Anderson MD [address] [facility] [address] [place], [place] [address] Physician Hematology/Oncology 10/01/22 Dania Vásquez MD [address] [facility] [place] [address] Physician Radiation Oncology 10/01/22 Andree Hollis, THREAD GRINDER TOOL.SIGNALS ANALYST [address] [facility] [place] [address] Nurse Practitioner Hematology/Oncology 10/01/22 Denisha Duarte, ALEXUS [address] [facility] [place] [address] Specialty Research Test Engine Operator Hematology/Oncology 10/01/22 Chelsie Ríos, ALEXUS Specialty Research Test Engine Operator Colon and Rectal Surgery 02/18/23 02/19/28 Acid Tester Relationship Specialty Start Date End Date Lorenzo Olson DO PCP - General Family Medicine 04/16/13 Sera Forbes PHYSICAL BIOCHEMIST Order Checker 09/26/22 Minerva Anderson MD [address] [facility] [place] [address] Physician Hematology/Oncology 10/01/22 Dania Vásquez MD [address] [facility] [place] [address] Physician Radiation Oncology 10/01/22 Andree Hollis, THREAD GRINDER TOOL.SIGNALS ANALYST [address] [facility] [place] [address] Nurse Practitioner Hematology/Oncology 10/01/22 Denisha Duarte, RN [address] [facility] [address] [place], [place] [address] Specialty Research Test Engine Operator Hematology/Oncology 10/01/22 Chelsie Ríos, RN Specialty Research Test Engine Operator Colon and Rectal Surgery 02/18/23 02/19/28 Acid Tester Relationship Specialty Start Date End Date Lorenzo Olson DO PCP - General Family Medicine 04/16/13 Sera Forbes LSW Order Checker 09/26/22 Minerva Anderson MD [address] [place] [address] [place] [address] Physician Hematology/Oncology 10/01/22 Dania Vásquez MD [address] [place] [address] [place] [address] Physician Radiation Oncology 10/01/22 Andree Hollis APRN.SIGNALS ANALYST [address] [place] [address] [place] [address] Nurse Practitioner Hematology/Oncology 10/01/22 Denisha Duarte, ALEXUS [address] [facility] [place] [address] Specialty Research Test Engine Operator Hematology/Oncology 10/01/22 Chelsie Ríos, RN Specialty Research Test Engine Operator Colon and Rectal Surgery 02/18/23 02/19/28 Acid Tester Relationship Specialty Start Date End Date Lorenzo Olson DO PCP - General Family Medicine 04/16/13 Sera Forbes LSW Order Checker 09/26/22 Minerva Anderson MD [address] [facility] [place] [address] Physician Hematology/Oncology 10/01/22 Dania Vásquez MD [address] [place] [address] [place] [address] Physician Radiation Oncology 10/01/22 Andree Hollis APRN.SIGNALS ANALYST [address] [place] [address] [place] [address] Nurse Practitioner Hematology/Oncology 10/01/22 Denisha Duarte, ALEXUS [address] [facility] [place] [address] Specialty Research Test Engine Operator Hematology/Oncology 10/01/22 Chelsie Ríos, RN Specialty Research Test Engine Operator Colon and Rectal Surgery 02/18/23 02/19/28 Acid Tester Relationship Specialty Start Date End Date Lorenzo Olson DO PCP - General Family Medicine 04/16/13 Sera Fobres LSW Order Checker 09/26/22 Minerva Anderson MD [address] [place] [address] [place] [address] Physician Hematology/Oncology 10/01/22 Dania Vásquez MD [address] [place] [address] [place] [address] Physician Radiation Oncology 10/01/22 Andree Hollis, THREAD GRINDER TOOL.SIGNALS ANALYST [address] [place] [address] [place] [address] Nurse Practitioner Hematology/Oncology 10/01/22 Denisha Duarte, ALEXUS [address] [facility] [place] [address] Specialty Research Test Engine Operator Hematology/Oncology 10/01/22 Chelsie Ríos RN Specialty Research Test Engine Operator Colon and Rectal Surgery 02/18/23 02/19/28 Acid Tester Relationship Specialty Start Date End Date Lorenzo Olson DO PCP - General Family Medicine 04/16/13 Sera Forbes LSW Order Checker 09/26/22 Minerva Anderson MD [address] [facility] [address] [place], [place] [id number] Physician Hematology/Oncology 10/01/22 Dania Vásquez MD [address] [facility] [place] [id number] Physician Radiation Oncology 10/01/22 Andree Hollis, AZAEL.SIGNALS ANALYST [address] [facility] [address] [place], [place] [id number] Nurse Practitioner Hematology/Oncology 10/01/22 Denisha Duarte, ALEXUS [address] [facility] [address] [place], [place] [id number] Specialty Research Test Engine Operator Hematology/Oncology 10/01/22 Chelsie Ríos, ALEXUS Specialty Research Test Engine Operator Colon and Rectal Surgery 02/18/23 02/19/28 Acid Tester Relationship Specialty Start Date End Date Lorenzo Olson DO PCP - General Family Medicine 04/16/13 Sera Forbes PHYSICAL BIOCHEMIST Order Checker 09/26/22 Minerva Anderson MD [address] [facility] [place] [address] Physician Hematology/Oncology 10/01/22 Dania Vásquez MD [address] [facility] [place] [address] Physician Radiation Oncology 10/01/22 Andree Hollis, THREAD GRINDER TOOL.SIGNALS ANALYST [address] [place] [address] [place] [address] Nurse Practitioner Hematology/Oncology 10/01/22 Denisha Duarte, ALEXUS [address] [facility] [place] [address] Specialty Research Test Engine Operator Hematology/Oncology 10/01/22 Chelsie Ríos, RN Specialty Research Test Engine Operator Colon and Rectal Surgery 02/18/23 02/19/28 Acid Tester Relationship Specialty Start Date End Date Lorenzo Olson DO PCP - General Family Medicine 04/16/13 Sera Forbes LSW Order Checker 09/26/22 Minerva Anderson MD [address] [place] [address] [place] [address] Physician Hematology/Oncology 10/01/22 Dania Vásquez MD [address] [place] [address] [place] [address] Physician Radiation Oncology 10/01/22 Andree Hollis, THREAD GRINDER TOOL.SIGNALS ANALYST [address] [place] [address] [place] [address] Nurse Practitioner Hematology/Oncology 10/01/22 Denisha Duarte, ALEXUS [address] [facility] [place] [address] Specialty Research Test Engine Operator Hematology/Oncology 10/01/22 Chelsie Ríos, RN Specialty Research Test Engine Operator Colon and Rectal Surgery 02/18/23 02/19/28 Acid Tester Relationship Specialty Start Date End Date Lorenzo Olson DO PCP - General Family Medicine 04/16/13 Sera Forbes LSW Order Checker 09/26/22 Minerva Anderson MD [address] [facility] [place] [address] Physician Hematology/Oncology 10/01/22 Dania Vásquez MD [address] [facility] [place] [address] Physician Radiation Oncology 10/01/22 Andree Hollis, THREAD GRINDER TOOL.SIGNALS ANALYST [address] [facility] [place] [address] Nurse Practitioner Hematology/Oncology 10/01/22 Denisha Duarte, ALEXUS [address] [facility] [place] [address] Specialty Research Test Engine Operator Hematology/Oncology 10/01/22 Chelsie Ríos RN Specialty Research Test Engine Operator Colon and Rectal Surgery 02/18/23 02/19/28 Acid Tester Relationship Specialty Start Date End Date Lorenzo Olson DO PCP - General Family Medicine 04/16/13 Sera Forbes [facility] Order Checker 09/26/22 Minerva Anderson MD [address] [facility] [place] [address] Physician Hematology/Oncology 10/01/22 Dania Vásquez MD [address] [facility] [place] [address] Physician Radiation Oncology 10/01/22 Andree Hollis, THREAD GRINDER TOOL.SIGNALS ANALYST [address] [facility] [place] [address] Nurse Practitioner Hematology/Oncology 10/01/22 Denisha Duarte ALEXUS [address] [facility] [place] [address] Specialty Research Test Engine Operator Hematology/Oncology 10/01/22 Chelsie Ríos, RN Specialty Research Test Engine Operator Colon and Rectal Surgery 02/18/23 02/19/28 Acid Tester Relationship Specialty Start Date End Date Lorenzo Olson DO PCP - General Family Medicine 04/16/13 Sera Forbes, PHYSICAL BIOCHEMIST Order Checker 09/26/22 Minerva Anderson MD [address] [facility] [place] [address] Physician Hematology/Oncology 10/01/22 Dania Vásquez MD [address] [facility] [place] [address] Physician Radiation Oncology 10/01/22 Andree Hollis APRN.SIGNALS ANALYST [address] [facility] [place] [address] Nurse Practitioner Hematology/Oncology 10/01/22 Denisha Duarte, ALEXUS [address] [facility] [place] [address] Specialty Research Test Engine Operator Hematology/Oncology 10/01/22 Chelsie Ríos, RN Specialty Research Test Engine Operator Colon and Rectal Surgery 02/18/23 02/19/28 Acid Tester Relationship Specialty Start Date End Date Lorenzo Olson DO PCP - General Family Medicine 04/16/13 Sera Forbes, PHYSICAL BIOCHEMIST Order Checker 09/26/22 Minerva Anderson MD [address] [facility] [place] [address] Physician Hematology/Oncology 10/01/22 Dania Vásquez MD [address] [facility] [place] [address] Physician Radiation Oncology 10/01/22 Andree Hollis, THREAD GRINDER TOOL.SIGNALS ANALYST [address] [facility] [place] [address] Nurse Practitioner Hematology/Oncology 10/01/22 Denisha Duarte, ALEXUS [address] [facility] [place] [address] Specialty Research Test Engine Operator Hematology/Oncology 10/01/22 Chelsie Ríos, RN Specialty Research Test Engine Operator Colon and Rectal Surgery 02/18/23 02/19/28 Acid Tester Relationship Specialty Start Date End Date Lorenzo Olson DO PCP - General Family Medicine 04/16/13 Sera Forbes LSW Order Checker 09/26/22 Minerva Anderson MD [address] [facility] [place] [address] Physician Hematology/Oncology 10/01/22 Dania Vásquez MD [address] [facility] [place] [address] Physician Radiation Oncology 10/01/22 Andree Hollis, THREAD GRINDER TOOL.SIGNALS ANALYST [address] [facility] [place] [address] Nurse Practitioner Hematology/Oncology 10/01/22 Denisha Duarte, ALEXUS [address] [facility] [place] [address] Specialty Research Test Engine Operator Hematology/Oncology 10/01/22 Chelsie Ríos, RN Specialty Research Test Engine Operator Colon and Rectal Surgery 02/18/23 02/19/28 Acid Tester Relationship Specialty Start Date End Date Lorenzo Olson DO PCP - General Family Medicine 04/16/13 Sera Forbes LSW Order Checker 09/26/22 Minerva Anderson MD [address] [place] [address] [place] [address] Physician Hematology/Oncology 10/01/22 Dania Vásquez MD [address] [place] [address] [place] [address] Physician Radiation Oncology 10/01/22 Andree Hollis APRN.SIGNALS ANALYST [address] [facility] [place] [address] Nurse Practitioner Hematology/Oncology 10/01/22 Denisha Duarte, ALEXUS [address] [place] [address] [place] [address] Specialty Research Test Engine Operator Hematology/Oncology 10/01/22 Chelsie Ríos, RN Specialty Research Test Engine Operator Colon and Rectal Surgery 02/18/23 02/19/28 Acid Tester Relationship Specialty Start Date End Date Lorenzo Olosn DO PCP - General Family Medicine 04/16/13 Sera Forbes LSW Order Checker 09/26/22 Minerva Anderson MD [address] [facility] [place] [address] Physician Hematology/Oncology 10/01/22 Dania Vásquez MD [address] [place] [address] [place] [address] Physician Radiation Oncology 10/01/22 Andree Hollis, THREAD GRINDER TOOL.SIGNALS ANALYST [address] [place] [address] [place] [address] Nurse Practitioner Hematology/Oncology 10/01/22 Denisha Duarte, ALEXUS [address] [facility] [place] [address] Specialty Research Test Engine Operator Hematology/Oncology 10/01/22 Chelsie Ríos, RN Specialty Research Test Engine Operator Colon and Rectal Surgery 02/18/23 02/19/28 Acid Tester Relationship Specialty Start Date End Date Lorenzo Olson DO PCP - General Family Medicine 04/16/13 Sera Forbes LSW Order Checker 09/26/22 Minerva Anderson MD [address] [place] [address] [place] [address] Physician Hematology/Oncology 10/01/22 Dania Vásquez MD [address] [place] [address] [place] [address] Physician Radiation Oncology 10/01/22 Andree Hollis, THREAD GRINDER TOOL.SIGNALS ANALYST [address] [place] [address] [place] [address] Nurse Practitioner Hematology/Oncology 10/01/22 Denisha Duarte, ALEXUS [address] [facility] [place] [address] Specialty Research Test Engine Operator Hematology/Oncology 10/01/22 Chelsie Ríso, RN Specialty Research Test Engine Operator Colon and Rectal Surgery 02/18/23 02/19/28 Acid Tester Relationship Specialty Start Date End Date Lorenzo Olson DO PCP - General Family Medicine 04/16/13 Sera Forbes LSW Order Checker 09/26/22 Minerva Anderson MD [address] [facility] [place] [address] Physician Hematology/Oncology 10/01/22 Dania Vásquez MD [address] [place] [address] [place] [address] Physician Radiation Oncology 10/01/22 Andree Hollis, AZAEL.SIGNALS ANALYST [address] [facility] [place] [address] Nurse Practitioner Hematology/Oncology 10/01/22 Denisha Duarte, ALEXUS [address] [place] [address] [place], [place] [id number] Specialty Research Test Engine Operator Hematology/Oncology 10/01/22 Chelsie Ríos, ALEXUS Specialty Research Test Engine Operator Colon and Rectal Surgery 02/18/23 02/19/28 Acid Tester Relationship Specialty Start Date End Date Tomas Lorenzosaba Dailey DO PCP - General Family Medicine 04/16/13 Sera Forbes LSW Order Checker 09/26/22 Minerva Anderson MD [address] [place] [address] [place] [address] Physician Hematology/Oncology 10/01/22 Dania Vásquez MD [address] [facility] [place] [address] Physician Radiation Oncology 10/01/22 Andree Hollis, AZAEL.SIGNALS ANALYST [address] [facility] [place] [address] Nurse Practitioner Hematology/Oncology 10/01/22 Denisha Duarte, ALEXUS [address] [place] [address] [place] [address] Specialty Research Test Engine Operator Hematology/Oncology 10/01/22 hCelsie Ríos, RN Specialty Research Test Engine Operator Colon and Rectal Surgery 02/18/23 02/19/28 Acid Tester Relationship Specialty Start Date End Date Lorenzo Olson DO PCP - General Family Medicine 04/16/13 Sera Forbes LSW Order Checker 09/26/22 Minerva Anderson MD [address] [place] [address] [place] [address] Physician Hematology/Oncology 10/01/22 Dania Vásquez MD [address] [place] [address] [place] [address] Physician Radiation Oncology 10/01/22 Andree Hollis APRN.SIGNALS ANALYST [address] [place] [address] [place] [address] Nurse Practitioner Hematology/Oncology 10/01/22 Denisha Duarte, ALEXUS [address] [place] [address] [place] [address] Specialty Research Test Engine Operator Hematology/Oncology 10/01/22 Chelsie Ríos, RN Specialty Research Test Engine Operator Colon and Rectal Surgery 02/18/23 02/19/28 Acid Tester Relationship Specialty Start Date End Date Lorenzo lOson DO PCP - General Family Medicine 04/16/13 Sera Forbes LSW Order Checker 09/26/22 Minerva Anderson MD [address] [place] [address] [place] [address] Physician Hematology/Oncology 10/01/22 Dania Vásquez MD [address] [place] [address] [place] [address] Physician Radiation Oncology 10/01/22 Andree Holils APRN.[facility] [address] [place] [address] [place], [place] [id number] Nurse Practitioner Hematology/Oncology 10/01/22 Denisha Duarte, ALEXUS [address] [place] [address] [place], [place] [id number] Specialty Research Test Engine Operator Hematology/Oncology 10/01/22 Chelsie Ríos RN Specialty Research Test Engine Operator Colon and Rectal Surgery 02/18/23 02/19/28 Source Comments (unrecognize d section and content) In the event this informatio n is protected by the Federal Confidentiality of Alcohol and Drug Abuse Patient Records regulations: The Federal rules restrict any use of the information to criminally investigate or prosecute any alcohol or drug abuse patient.[facility] CenterIn the event this information is protected by the Federal Confidentiality of Alcohol and Drug Abuse Patient Records regulations: The Federal rules restrict any use of the information to criminally investigate or prosecute any alcohol or drug abuse patient.[facility] CenterIn the event this information is protected by the Federal Confidentiality of Alcohol and Drug Abuse Patient Records regulations: The Federal rules restrict any use of the information to criminally investigate or prosecute any alcohol or drug abuse patient.[facility] CenterIn the event this information is protected by the Federal Confidentiality of Alcohol and Drug Abuse Patient Records regulations: The Federal rules restrict any use of the information to criminally investigate or prosecute any alcohol or drug abuse patient.[facility] CenterIn the event this information is protected by the Federal Confidentiality of Alcohol and Drug Abuse Patient Records regulations: The Federal rules restrict any use of the information to criminally investigate or prosecute any alcohol or drug abuse patient.[facility] CenterIn the event this information is protected by the Federal Confidentiality of Alcohol and Drug Abuse Patient Records regulations: The Federal rules restrict any use of the information to criminally investigate or prosecute any alcohol or drug abuse patient.[facility] CenterIn the event this information is protected by the Federal Confidentiality of Alcohol and Drug Abuse Patient Records regulations: The Federal rules restrict any use of the information to criminally investigate or prosecute any alcohol or drug abuse patient.[facility] CenterIn the event this information is protected by the Federal Confidentiality of Alcohol and Drug Abuse Patient Records regulations: The Federal rules restrict any use of the information to criminally investigate or prosecute any alcohol or drug abuse patient.[facility] CenterIn the event this information is protected by the Federal Confidentiality of Alcohol and Drug Abuse Patient Records regulations: The Federal rules restrict any use of the information to criminally investigate or prosecute any alcohol or drug abuse patient.[facility] CenterIn the event this information is protected by the Federal Confidentiality of Alcohol and Drug Abuse Patient Records regulations: The Federal rules restrict any use of the information to criminally investigate or prosecute any alcohol or drug abuse patient.[facility] CenterIn the event this information is protected by the Federal Confidentiality of Alcohol and Drug Abuse Patient Records regulations: The Federal rules restrict any use of the information to criminally investigate or prosecute any alcohol or drug abuse patient.[facility] CenterIn the event this information is protected by the Federal Confidentiality of Alcohol and Drug Abuse Patient Records regulations: The Federal rules restrict any use of the information to criminally investigate or prosecute any alcohol or drug abuse patient.[facility] CenterIn the event this information is protected by the Federal Confidentiality of Alcohol and Drug Abuse Patient Records regulations: The Federal rules restrict any use of the information to criminally investigate or prosecute any alcohol or drug abuse patient.[facility] CenterIn the event this information is protected by the Federal Confidentiality of Alcohol and Drug Abuse Patient Records regulations: The Federal rules restrict any use of the information to criminally investigate or prosecute any alcohol or drug abuse patient.[facility] CenterIn the event this information is protected by the Federal Confidentiality of Alcohol and Drug Abuse Patient Records regulations: The Federal rules restrict any use of the information to criminally investigate or prosecute any alcohol or drug abuse patient.[facility] CenterIn the event this information is protected by the Federal Confidentiality of Alcohol and Drug Abuse Patient Records regulations: The Federal rules restrict any use of the information to criminally investigate or prosecute any alcohol or drug abuse patient.[facility] CenterIn the event this information is protected by the Federal Confidentiality of Alcohol and Drug Abuse Patient Records regulations: The Federal rules restrict any use of the information to criminally investigate or prosecute any alcohol or drug abuse patient.[facility] CenterIn the event this information is protected by the Federal Confidentiality of Alcohol and Drug Abuse Patient Records regulations: The Federal rules restrict any use of the information to criminally investigate or prosecute any alcohol or drug abuse patient.[facility] CenterIn the event this information is protected by the Federal Confidentiality of Alcohol and Drug Abuse Patient Records regulations: The Federal rules restrict any use of the information to criminally investigate or prosecute any alcohol or drug abuse patient.[facility] CenterIn the event this information is protected by the Federal Confidentiality of Alcohol and Drug Abuse Patient Records regulations: The Federal rules restrict any use of the information to criminally investigate or prosecute any alcohol or drug abuse patient.[facility] CenterIn the event this information is protected by the Federal Confidentiality of Alcohol and Drug Abuse Patient Records regulations: The Federal rules restrict any use of the information to criminally investigate or prosecute any alcohol or drug abuse patient.[facility] CenterIn the event this information is protected by the Federal Confidentiality of Alcohol and Drug Abuse Patient Records regulations: The Federal rules restrict any use of the information to criminally investigate or prosecute any alcohol or drug abuse patient.[facility] CenterIn the event this information is protected by the Federal Confidentiality of Alcohol and Drug Abuse Patient Records regulations: The Federal rules restrict any use of the information to criminally investigate or prosecute any alcohol or drug abuse patient.[facility] CenterIn the event this information is protected by the Federal Confidentiality of Alcohol and Drug Abuse Patient Records regulations: The Federal rules restrict any use of the information to criminally investigate or prosecute any alcohol or drug abuse patient.[facility] CenterIn the event this information is protected by the Federal Confidentiality of Alcohol and Drug Abuse Patient Records regulations: The Federal rules restrict any use of the information to criminally investigate or prosecute any alcohol or drug abuse patient.[facility] CenterIn the event this information is protected by the Federal Confidentiality of Alcohol and Drug Abuse Patient Records regulations: The Federal rules restrict any use of the information to criminally investigate or prosecute any alcohol or drug abuse patient.[facility] CenterIn the event this information is protected by the Federal Confidentiality of Alcohol and Drug Abuse Patient Records regulations: The Federal rules restrict any use of the information to criminally investigate or prosecute any alcohol or drug abuse patient.[facility] CenterIn the event this information is protected by the Federal Confidentiality of Alcohol and Drug Abuse Patient Records regulations: The Federal rules restrict any use of the information to criminally investigate or prosecute any alcohol or drug abuse patient.[facility] CenterIn the event this information is protected by the Federal Confidentiality of Alcohol and Drug Abuse Patient Records regulations: The Federal rules restrict any use of the information to criminally investigate or prosecute any alcohol or drug abuse patient.[facility] CenterIn the event this information is protected by the Federal Confidentiality of Alcohol and Drug Abuse Patient Records regulations: The Federal rules restrict any use of the information to criminally investigate or prosecute any alcohol or drug abuse patient.[facility] CenterIn the event this information is protected by the Federal Confidentiality of Alcohol and Drug Abuse Patient Records regulations: The Federal rules restrict any use of the information to criminally investigate or prosecute any alcohol or drug abuse patient.[facility] CenterIn the event this information is protected by the Federal Confidentiality of Alcohol and Drug Abuse Patient Records regulations: The Federal rules restrict any use of the information to criminally investigate or prosecute any alcohol or drug abuse patient.[facility] CenterIn the event this information is protected by the Federal Confidentiality of Alcohol and Drug Abuse Patient Records regulations: The Federal rules restrict any use of the information to criminally investigate or prosecute any alcohol or drug abuse patient.[facility] CenterIn the event this information is protected by the Federal Confidentiality of Alcohol and Drug Abuse Patient Records regulations: The Federal rules restrict any use of the information to criminally investigate or prosecute any alcohol or drug abuse patient.[facility] CenterIn the event this information is protected by the Federal Confidentiality of Alcohol and Drug Abuse Patient Records regulations: The Federal rules restrict any use of the information to criminally investigate or prosecute any alcohol or drug abuse patient.[facility] CenterIn the event this information is protected by the Federal Confidentiality of Alcohol and Drug Abuse Patient Records regulations: The Federal rules restrict any use of the information to criminally investigate or prosecute any alcohol or drug abuse patient.[facility] CenterIn the event this information is protected by the Federal Confidentiality of Alcohol and Drug Abuse Patient Records regulations: The Federal rules restrict any use of the information to criminally investigate or prosecute any alcohol or drug abuse patient.[facility] CenterIn the event this information is protected by the Federal Confidentiality of Alcohol and Drug Abuse Patient Records regulations: The Federal rules restrict any use of the information to criminally investigate or prosecute any alcohol or drug abuse patient.[facility] CenterIn the event this information is protected by the Federal Confidentiality of Alcohol and Drug Abuse Patient Records regulations: The Federal rules restrict any use of the information to criminally investigate or prosecute any alcohol or drug abuse patient.[facility] CenterIn the event this information is protected by the Federal Confidentiality of Alcohol and Drug Abuse Patient Records regulations: The Federal rules restrict any use of the information to criminally investigate or prosecute any alcohol or drug abuse patient.[facility] CenterIn the event this information is protected by the Federal Confidentiality of Alcohol and Drug Abuse Patient Records regulations: The Federal rules restrict any use of the information to criminally investigate or prosecute any alcohol or drug abuse patient.[facility] CenterIn the event this information is protected by the Federal Confidentiality of Alcohol and Drug Abuse Patient Records regulations: The Federal rules restrict any use of the information to criminally investigate or prosecute any alcohol or drug abuse patient.[facility] CenterIn the event this information is protected by the Federal Confidentiality of Alcohol and Drug Abuse Patient Records regulations: The Federal rules restrict any use of the information to criminally investigate or prosecute any alcohol or drug abuse patient.[facility] CenterIn the event this information is protected by the Federal Confidentiality of Alcohol and Drug Abuse Patient Records regulations: The Federal rules restrict any use of the information to criminally investigate or prosecute any alcohol or drug abuse patient.[facility] CenterIn the event this information is protected by the Federal Confidentiality of Alcohol and Drug Abuse Patient Records regulations: The Federal rules restrict any use of the information to criminally investigate or prosecute any alcohol or drug abuse patient.[facility] CenterIn the event this information is protected by the Federal Confidentiality of Alcohol and Drug Abuse Patient Records regulations: The Federal rules restrict any use of the information to criminally investigate or prosecute any alcohol or drug abuse patient.[facility] CenterIn the event this information is protected by the Federal Confidentiality of Alcohol and Drug Abuse Patient Records regulations: The Federal rules restrict any use of the information to criminally investigate or prosecute any alcohol or drug abuse patient.[facility] CenterIn the event this information is protected by the Federal Confidentiality of Alcohol and Drug Abuse Patient Records regulations: The Federal rules restrict any use of the information to criminally investigate or prosecute any alcohol or drug abuse patient.[facility] CenterIn the event this information is protected by the Federal Confidentiality of Alcohol and Drug Abuse Patient Records regulations: The Federal rules restrict any use of the information to criminally investigate or prosecute any alcohol or drug abuse patient.[facility] CenterIn the event this information is protected by the Federal Confidentiality of Alcohol and Drug Abuse Patient Records regulations: The Federal rules restrict any use of the information to criminally investigate or prosecute any alcohol or drug abuse patient.[facility] CenterIn the event this information is protected by the Federal Confidentiality of Alcohol and Drug Abuse Patient Records regulations: The Federal rules restrict any use of the information to criminally investigate or prosecute any alcohol or drug abuse patient.[facility] CenterIn the event this information is protected by the Federal Confidentiality of Alcohol and Drug Abuse Patient Records regulations: The Federal rules restrict any use of the information to criminally investigate or prosecute any alcohol or drug abuse patient.[facility] CenterIn the event this information is protected by the Federal Confidentiality of Alcohol and Drug Abuse Patient Records regulations: The Federal rules restrict any use of the information to criminally investigate or prosecute any alcohol or drug abuse patient.[facility] CenterIn the event this information is protected by the Federal Confidentiality of Alcohol and Drug Abuse Patient Records regulations: The Federal rules restrict any use of the information to criminally investigate or prosecute any alcohol or drug abuse patient.[facility] CenterIn the event this information is protected by the Federal Confidentiality of Alcohol and Drug Abuse Patient Records regulations: The Federal rules restrict any use of the information to criminally investigate or prosecute any alcohol or drug abuse patient.[facility] CenterIn the event this information is protected by the Federal Confidentiality of Alcohol and Drug Abuse Patient Records regulations: The Federal rules restrict any use of the information to criminally investigate or prosecute any alcohol or drug abuse patient.[facility] CenterIn the event this information is protected by the Federal Confidentiality of Alcohol and Drug Abuse Patient Records regulations: The Federal rules restrict any use of the information to criminally investigate or prosecute any alcohol or drug abuse patient.[facility] CenterIn the event this information is protected by the Federal Confidentiality of Alcohol and Drug Abuse Patient Records regulations: The Federal rules restrict any use of the information to criminally investigate or prosecute any alcohol or drug abuse patient.[facility] CenterIn the event this information is protected by the Federal Confidentiality of Alcohol and Drug Abuse Patient Records regulations: The Federal rules restrict any use of the information to criminally investigate or prosecute any alcohol or drug abuse patient.[facility] CenterIn the event this information is protected by the Federal Confidentiality of Alcohol and Drug Abuse Patient Records regulations: The Federal rules restrict any use of the information to criminally investigate or prosecute any alcohol or drug abuse patient.[facility] CenterIn the event this information is protected by the Federal Confidentiality of Alcohol and Drug Abuse Patient Records regulations: The Federal rules restrict any use of the information to criminally investigate or prosecute any alcohol or drug abuse patient.[facility] CenterIn the event this information is protected by the Federal Confidentiality of Alcohol and Drug Abuse Patient Records regulations: The Federal rules restrict any use of the information to criminally investigate or prosecute any alcohol or drug abuse patient.[facility] CenterIn the event this information is protected by the Federal Confidentiality of Alcohol and Drug Abuse Patient Records regulations: The Federal rules restrict any use of the information to criminally investigate or prosecute any alcohol or drug abuse patient.[facility] CenterIn the event this information is protected by the Federal Confidentiality of Alcohol and Drug Abuse Patient Records regulations: The Federal rules restrict any use of the information to criminally investigate or prosecute any alcohol or drug abuse patient.[facility] CenterIn the event this information is protected by the Federal Confidentiality of Alcohol and Drug Abuse Patient Records regulations: The Federal rules restrict any use of the information to criminally investigate or prosecute any alcohol or drug abuse patient.[facility] CenterIn the event this information is protected by the Federal Confidentiality of Alcohol and Drug Abuse Patient Records regulations: The Federal rules restrict any use of the information to criminally investigate or prosecute any alcohol or drug abuse patient.[facility] CenterIn the event this information is protected by the Federal Confidentiality of Alcohol and Drug Abuse Patient Records regulations: The Federal rules restrict any use of the information to criminally investigate or prosecute any alcohol or drug abuse patient.[facility] CenterIn the event this information is protected by the Federal Confidentiality of Alcohol and Drug Abuse Patient Records regulations: The Federal rules restrict any use of the information to criminally investigate or prosecute any alcohol or drug abuse patient.[facility] CenterIn the event this information is protected by the Federal Confidentiality of Alcohol and Drug Abuse Patient Records regulations: The Federal rules restrict any use of the information to criminally investigate or prosecute any alcohol or drug abuse patient.[facility] CenterIn the event this information is protected by the Federal Confidentiality of Alcohol and Drug Abuse Patient Records regulations: The Federal rules restrict any use of the information to criminally investigate or prosecute any alcohol or drug abuse patient.[facility] CenterIn the event this information is protected by the Federal Confidentiality of Alcohol and Drug Abuse Patient Records regulations: The Federal rules restrict any use of the information to criminally investigate or prosecute any alcohol or drug abuse patient.[facility] CenterIn the event this information is protected by the Federal Confidentiality of Alcohol and Drug Abuse Patient Records regulations: The Federal rules restrict any use of the information to criminally investigate or prosecute any alcohol or drug abuse patient.[facility] CenterIn the event this information is protected by the Federal Confidentiality of Alcohol and Drug Abuse Patient Records regulations: The Federal rules restrict any use of the information to criminally investigate or prosecute any alcohol or drug abuse patient.[facility] CenterIn the event this information is protected by the Federal Confidentiality of Alcohol and Drug Abuse Patient Records regulations: The Federal rules restrict any use of the information to criminally investigate or prosecute any alcohol or drug abuse patient.[facility] CenterIn the event this information is protected by the Federal Confidentiality of Alcohol and Drug Abuse Patient Records regulations: The Federal rules restrict any use of the information to criminally investigate or prosecute any alcohol or drug abuse patient.[facility] CenterIn the event this information is protected by the Federal Confidentiality of Alcohol and Drug Abuse Patient Records regulations: The Federal rules restrict any use of the information to criminally investigate or prosecute any alcohol or drug abuse patient.[facility] CenterIn the event this information is protected by the Federal Confidentiality of Alcohol and Drug Abuse Patient Records regulations: The Federal rules restrict any use of the information to criminally investigate or prosecute any alcohol or drug abuse patient.[facility] CenterIn the event this information is protected by the Federal Confidentiality of Alcohol and Drug Abuse Patient Records regulations: The Federal rules restrict any use of the information to criminally investigate or prosecute any alcohol or drug abuse patient.[facility] CenterIn the event this information is protected by the Federal Confidentiality of Alcohol and Drug Abuse Patient Records regulations: The Federal rules restrict any use of the information to criminally investigate or prosecute any alcohol or drug abuse patient.[facility] CenterIn the event this information is protected by the Federal Confidentiality of Alcohol and Drug Abuse Patient Records regulations: The Federal rules restrict any use of the information to criminally investigate or prosecute any alcohol or drug abuse patient.[facility] CenterIn the event this information is protected by the Federal Confidentiality of Alcohol and Drug Abuse Patient Records regulations: The Federal rules restrict any use of the information to criminally investigate or prosecute any alcohol or drug abuse patient.[facility] CenterIn the event this information is protected by the Federal Confidentiality of Alcohol and Drug Abuse Patient Records regulations: The Federal rules restrict any use of the information to criminally investigate or prosecute any alcohol or drug abuse patient.[facility] CenterIn the event this information is protected by the Federal Confidentiality of Alcohol and Drug Abuse Patient Records regulations: The Federal rules restrict any use of the information to criminally investigate or prosecute any alcohol or drug abuse patient.[facility] CenterIn the event this information is protected by the Federal Confidentiality of Alcohol and Drug Abuse Patient Records regulations: The Federal rules restrict any use of the information to criminally investigate or prosecute any alcohol or drug abuse patient.[facility] CenterIn the event this information is protected by the Federal Confidentiality of Alcohol and Drug Abuse Patient Records regulations: The Federal rules restrict any use of the information to criminally investigate or prosecute any alcohol or drug abuse patient.[facility] CenterIn the event this information is protected by the Federal Confidentiality of Alcohol and Drug Abuse Patient Records regulations: The Federal rules restrict any use of the information to criminally investigate or prosecute any alcohol or drug abuse patient.[facility] CenterIn the event this information is protected by the Federal Confidentiality of Alcohol and Drug Abuse Patient Records regulations: The Federal rules restrict any use of the information to criminally investigate or prosecute any alcohol or drug abuse patient.[facility] CenterIn the event this information is protected by the Federal Confidentiality of Alcohol and Drug Abuse Patient Records regulations: The Federal rules restrict any use of the information to criminally investigate or prosecute any alcohol or drug abuse patient.[facility] CenterIn the event this information is protected by the Federal Confidentiality of Alcohol and Drug Abuse Patient Records regulations: The Federal rules restrict any use of the information to criminally investigate or prosecute any alcohol or drug abuse patient.[facility] CenterIn the event this information is protected by the Federal Confidentiality of Alcohol and Drug Abuse Patient Records regulations: The Federal rules restrict any use of the information to criminally investigate or prosecute any alcohol or drug abuse patient.[facility] CenterIn the event this information is protected by the Federal Confidentiality of Alcohol and Drug Abuse Patient Records regulations: The Federal rules restrict any use of the information to criminally investigate or prosecute any alcohol or drug abuse patient.[facility] CenterIn the event this information is protected by the Federal Confidentiality of Alcohol and Drug Abuse Patient Records regulations: The Federal rules restrict any use of the information to criminally investigate or prosecute any alcohol or drug abuse patient.[facility] CenterIn the event this information is protected by the Federal Confidentiality of Alcohol and Drug Abuse Patient Records regulations: The Federal rules restrict any use of the information to criminally investigate or prosecute any alcohol or drug abuse patient.[facility] CenterIn the event this information is protected by the Federal Confidentiality of Alcohol and Drug Abuse Patient Records regulations: The Federal rules restrict any use of the information to criminally investigate or prosecute any alcohol or drug abuse patient.[facility]In the event this information is protected by the Federal Confidentiality of Alcohol and Drug Abuse Patient Records regulations: The Federal rules restrict any use of the information to criminally investigate or prosecute any alcohol or drug abuse patient.[facility] CenterIn the event this information is protected by the Federal Confidentiality of Alcohol and Drug Abuse Patient Records regulations: The Federal rules restrict any use of the information to criminally investigate or prosecute any alcohol or drug abuse patient.[facility] CenterIn the event this information is protected by the Federal Confidentiality of Alcohol and Drug Abuse Patient Records regulations: The Federal rules restrict any use of the information to criminally investigate or prosecute any alcohol or drug abuse patient.[facility] CenterIn the event this information is protected by the Federal Confidentiality of Alcohol and Drug Abuse Patient Records regulations: The Federal rules restrict any use of the information to criminally investigate or prosecute any alcohol or drug abuse patient.[facility] CenterIn the event this information is protected by the Federal Confidentiality of Alcohol and Drug Abuse Patient Records regulations: The Federal rules restrict any use of the information to criminally investigate or prosecute any alcohol or drug abuse patient.[facility]In the event this information is protected by the Federal Confidentiality of Alcohol and Drug Abuse Patient Records regulations: The Federal rules restrict any use of the information to criminally investigate or prosecute any alcohol or drug abuse patient.[facility]In the event this information is protected by the Federal Confidentiality of Alcohol and Drug Abuse Patient Records regulations: The Federal rules restrict any use of the information to criminally investigate or prosecute any alcohol or drug abuse patient.[facility]In the event this information is protected by the Federal Confidentiality of Alcohol and Drug Abuse Patient Records regulations: The Federal rules restrict any use of the information to criminally investigate or prosecute any alcohol or drug abuse patient.[facility]In the event this information is protected by the Federal Confidentiality of Alcohol and Drug Abuse Patient Records regulations: The Federal rules restrict any use of the information to criminally investigate or prosecute any alcohol or drug abuse patient.[facility]In the event this information is protected by the Federal Confidentiality of Alcohol and Drug Abuse Patient Records regulations: The Federal rules restrict any use of the information to criminally investigate or prosecute any alcohol or drug abuse patient.[facility]In the event this information is protected by the Federal Confidentiality of Alcohol and Drug Abuse Patient Records regulations: The Federal rules restrict any use of the information to criminally investigate or prosecute any alcohol or drug abuse patient.[facility] CenterIn the event this information is protected by the Federal Confidentiality of Alcohol and Drug Abuse Patient Records regulations: The Federal rules restrict any use of the information to criminally investigate or prosecute any alcohol or drug abuse patient.[facility] CenterIn the event this information is protected by the Federal Confidentiality of Alcohol and Drug Abuse Patient Records regulations: The Federal rules restrict any use of the information to criminally investigate or prosecute any alcohol or drug abuse patient.[facility] CenterIn the event this information is protected by the Federal Confidentiality of Alcohol and Drug Abuse Patient Records regulations: The Federal rules restrict any use of the information to criminally investigate or prosecute any alcohol or drug abuse patient.[facility] CenterIn the event this information is protected by the Federal Confidentiality of Alcohol and Drug Abuse Patient Records regulations: The Federal rules restrict any use of the information to criminally investigate or prosecute any alcohol or drug abuse patient.[facility] CenterIn the event this information is protected by the Federal Confidentiality of Alcohol and Drug Abuse Patient Records regulations: The Federal rules restrict any use of the information to criminally investigate or prosecute any alcohol or drug abuse patient.[facility] CenterIn the event this information is protected by the Federal Confidentiality of Alcohol and Drug Abuse Patient Records regulations: The Federal rules restrict any use of the information to criminally investigate or prosecute any alcohol or drug abuse patient.[facility] Reason for Visit (unrecogniz ed section and [...] Referred By Contac t Referred To Contact Diagnoses Rectal cancer (HCC) Minerva Anderson MD [address] [place] [address] [place] [address] Juan Carlos Treat Arya [address] [place] [address] Referral ID Status Reason Start Date Expiration Date V isits Requested Visits Authorized [id number] Authorized 12/17/2022 03/17/2023 99 99 Reason Comments Care Coordination C1D1 treatment follo w up call Specialty Diagnoses / Procedures Referred By Contac t Referred To Contact Hematology / HEMATOLOGY/ONCOLOGY Diagnoses lab port chemotx FOLFOX *NEW START CHANGE IN TREATMENT* Procedures LAB/PORT Minerva Anderson MD [address] [place] [address] Juan Carlos Arya [address] [place] [address] Referral ID Status Reason Start Date Expiration Date V isits Requested Visits Authorized [id number] Authorized 12/25/2022 10/20/2023 99 99 Reason Comments Rectal Cancer OTV 2 weeks 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 Rectal 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 Reason Comments Care Coordination US Order Reason Onset Date Comments Refill Request 01/23/2023 Reason Comments Care Coordination DVT; Eliquis Reason Comments New Patient Evaluation Rectal Bleeding Specialty Diagnoses / Procedures Referred By Contac t Referred To Contact Gastroenterology Diagnoses Rectal cancer (HCC) Rectal bleeding Procedures CONSULT TO GASTROENTEROLOGY OFFICE/OUTPATIENT NEW HIGH MDM 60-74 MINUTES Andree Hollis, [facility] [address] [place] [address] Referral ID Status Reason Start Date Expiration Date V isits Requested Visits Authorized [id number] Closed PCP Requested Referral 01/23/2023 01/23/2024 1 1 Reason Comments New Patient Consult for rectal c ancer Reason Comments Rectal Cancer Treatment visit/port draw Reason Comments Medication Assistance Approved for Free Xarelto Reason Comments Patient Question Reason Comments Care Coordination MRI Question Reason Comments Orders Flex sig, CEA, MRI, CT 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 Lab Results; Ne uropathy Reason Comments Port Flush Specialty Diagnoses / Procedures Referred By Contac t Referred To Contact Hematology / HEMATOLOGY/ONCOLOGY Diagnoses lab port chemotx FOLFOX *NEW START CHANGE IN TREATMENT* Procedures LAB/PORT Minerva Anderson MD [address] [place] [address] Juan Carlos Arya [address] [place] [address] Goals (unrecognized section and content) Goals may [...] BE BASED ON THE PRIMARY CLINICAL RECORDS. [facility] [employer] [facility]. provides no warranty or guarantee of the accuracy or completeness of information in this document.
[2023-11-26 07:16] VITALS: BP 145/99; PULSE 74; RESP 16; TEMP 36.8; O2SAT 95
[2023-11-26 07:49] VITALS: BP 130/80; PULSE 59; RESP 18; O2SAT 96
[2023-11-26] MEDS: BUPIVACAINE HCL 0.25% PF 25 MG/10 ML VIAL 6 ML INJ (07:49)
[2023-11-26 07:50] VITALS: BP 134/83; PULSE 54; RESP 18; O2SAT 95
--- NOTE | 2023-11-26 08:01 | W.PM.PROCNOT ---
Date of procedure: 11/26/23 Pre-op diagnosis: Lumbar spondylosis Post-op diagnosis: same as pre-op Procedure: Bilateral lumbar 4/5, 5/sacral 1 medial branch block Under fluoroscopic guidance Solution injected: 2millilitersMarcaine 0.25% Anesthesia :none Immediate complications none Time out process compliant After informed consent obtained from the patient placed in the Prone proposition . area was prepped and draped in a sterile fashion using Cloraprep .25 gauge spinal needle inserted over each of the above mentioned target areas . Gaastra were directed towards the target under fluoroscopic guidance . after encountering each of the targets , no indication of intravascular intraneuronal or intrathecal needle tip placement. Then 0 .5 to 1 Milliliter was injected at each level. Gaastra removed postoperatively. patient transferred to recovery in stable condition to be discharged home after meeting criteria Anesthesia: Local Surgeon: Alexis Cohen Condition: stable
== END 2023-11-26 07:59 | disposition home or self-care (01) ==
PROVIDERS: PCP Family Medicine; Visit Provider Anesthesiology Pain Medicine
DX: M47.816 Spondylosis without myelopathy or radiculopathy, lumbar region (principal)
CPT/HCPCS: 64493; 64494; J0665

== ENCOUNTER 2023-12-04 08:39 | Outpatient (OUT) | payer MEDICARE, OTHER, SELFPAY ==
--- OUTSIDE RECORDS SUMMARY | 2023-12-04 09:03 | XMS_ITS | CCD ---
Author Name Unknown Address [address] [place] [address] Organization [facility] Care Team Providers Care Shutdown Planner Name Role Phone SONAM ZAMBRANO Consulting Unavailable PAWANANDER, LINK Attending Unavailable PAWANANDER, LNIK Admitting Unavailable TOMAS, DR LORENZO Dailey Primary Care Unavailable TOMAS, DR LORENZO Dailey Primary Care Unavailable DINORAH, DR SHANTEL Michael Consulting Unavailable PAWANANDER, LINK Attending Unavailable PAWANANDER, LINK Admitting Unavailable HIGHLANDER, LINK Consulting Unavailable TON, JOHANA Consulting Unavailable ERICA, CESAR Consulting Unavailable LERENA, LAKSHMI Consulting Unavailable PAWANANDER, LINK Attending Unavailable DAMASO, DR DEBORAH Jack Consulting Unavailable PAWANANDER, LINK Admitting Unavailable HIGHLANDER, LINK Consulting Unavailable TOMAS, DR LORENZO Dailey Primary Care Unavailable ISACC, LINK Attending Unavailable ISACC, LINK Consulting Unavailable ISACC, LINK Admitting Unavailable Lorenzo OLSON Primary Care Physician [phone] Lucy Bhatti Unavailable Unavailable Christie Lemus Unavailable Unavailable Lorenzo Olson DO Primary Care Provider Lorenoz Olson DO Primary Care Provider Sera Welch Unavailable Unavailable THALIA TROY Referring Unavailable THALIA TROY Attending Unavailable THALIA TROY Attending Unavailable THALIA TROY Referring Unavailable DO Lorenzo Olson Primary Care Provider MD Minerva Anderson Attending Provider [phone] Minerva Anderson MD Unavailable Dania Vásquez MD Unavailable Wild GLOBE CHANGER.INSEAM LEVELER, Andree Unavailable [phone] Gerald VAUGHAN, Denisha Unavailable [phone] LORENZO OLSON Primary Care Unavailable HANG MAIER Attending Unavailable TOMAS LORENZO Dailey Primary Care Unavailable HANG MAIER Attending Unavailable HANG MAIER Admitting Unavailable [place] VAUGHAN, Chelsie Dahl Unavailable Unavailable Valencia Torres Unavailable Tomas, Lorenzo Dailey Primary Care Provider JM Torres Attending Provider DEBORAH NORMAN Referring Unavailable TOMAS, LORENZO Dailey Primary Care Unavailable Tomas HERNANDEZ, Lorenzo Dailey Primary Care Provider Gerald VUAGHAN, Denisha Unavailable [place] VAUGHAN, Chelsie Dahl Unavailable Unavailable TOMAS Lorenzo Dailey Primary Care Physician [phone] Tomas, Lorenzo Dailey Primary Care Provider JM Torres Attending Provider Tomas Lorenzo Dailey Primary Care Unavailable Torres, Valencia Admitting Unavailable Valencia Torres Attending Unavailable Tomas, Lorenzo Dailey Primary Care Unavailable Mienrva Anderson Admitting Unavailable Minerva Anderson Attending Unavailable Darin, Valencia Admitting Unavailable Valencia Torres Attending Unavailable Tomas, Lorenzo Dailey Primary Care Unavailable Torres, Valencia Admitting Unavailable Valencia Torres Attending Unavailable Tomas, Lorenzo Dailey Primary Care Unavailable CHELSIE FERNANDO Attending Unavailable NONE, XXXX Referring Unavailable Santiago Kong Admitting Unavaila Santiago Flower Attending Unavaila Corey Bob Admitting Unavailable Corey MCKEE Attending Unavailable Corey MCKEE Referring Unavailable STANDania, ARACELY Cyndee L Referring Unavailable Santiago Kong Consulting Unavaila ble STANDania, INSEAM LEVELER Cyndee L Admitting Unavailable STANDania, INSEAM LEVELER Cyndee L Attending Unavailable Santiago Kong Consulting Unavaila ble Santiago Kong Consulting Unavaila Lorenzo Suarez Attending Unavailable Corey MCKEE Attending Unavailable Corey MCKEE Attending Unavailable Bryon Cruz Admitting Unavailable Bryon Cruz Attending Unavailable Andree Hollis Admitting Unavailable Andree Hollis Attending Unavailable Andree Hollis Referring Unavailable Yuridia Houser Attending Unavailable TOMAS Lorenzo Asim Referring Unavailable LUZ Torres Admitting Unavailabl e Cyndee Torres Attending Unavailable MD Bryon Cruz Admitting Unavailable VALENCIA TORRES Referring Unavailable Bryon Cruz Attending Unavailable Bryon Cruz Attending Unavailable Bryon Cruz Referring Unavailable NONE, XXXX Referring Unavailable LAURA, INSEAM LEVELER Cyndee L Admitting Unavailable LAURA, ARACELY Cotter L Attending Unavailable MARK VALLADARES Attending Unavailable DIONNA, MARK Admitting Unavailable TOMAS, [facility] Primary Care Unavailable JACKY TAYLOR Attending Unavailable EMERSON, EDBORAH Referring Unavailable TOMAS, [facility] Primary Care Unavailable DEBORAH GOMEZ Attending Unavailable EMERSON, DEBORAH Referring Unavailable TOMAS, [facility] Primary Care Unavailable EMERSON, DEBORAH Referring Unavailable SYBIL PROCTOR Attending Unavailable TOMAS, [facility] Primary Care Unavailable TOMAS, [facility] Primary Care Unavailable MINERVA ANDERSON Attending Unavailable MINERVA ANDERSON Referring Unavailable TOMAS, [facility] Primary Care Unavailable Dania VÁSQUEZ Attending Unavailable TOMAS, [facility] Primary Care Unavailable MINERVA ANDERSON Referring Unavailable MINERVA ANDERSON Attending Unavailable TOMAS, [facility] Primary Care Unavailable TOMAS, [facility] Primary Care Unavailable MINERVA ANDERSON Attending Unavailable TOMAS, [facility] Primary Care Unavailable MINERVA ANDERSON Referring Unavailable TOMAS, [facility] Primary Care Unavailable MINERVA ANDERSON Attending Unavailable MINERVA ANDERSON Referring Unavailable TOMAS, [facility] Primary Care Unavailable KARI KEY Referring Unavailable TOMAS, [facility] Primary Care Unavailable KARI KEY Referring Unavailable TOMAS, [facility] Primary Care Unavailable HOA GURROLA Attending UnavailMINERVA Shane Referring Unavailable TOMAS, [facility] Primary Care Unavailable EMERSON, DEBORAH Referring Unavailable TOMAS, [facility] Primary Care Unavailable EMERSON, DEBORAH Referring Unavailable TOMAS, [facility] Primary Care Unavailable MINERVA ANDERSON Attending Unavailable MINERVA ANDERSON Referring Unavailable TOMAS, [facility] Primary Care Unavailable EMERSON, DEBORAH Referring Unavailable TOMAS, [facility] Primary Care Unavailable MINERVA ANDERSON Referring Unavailable TOMAS, [facility] Primary Care Unavailable MINERVA ANDERSON Referring Unavailable TOMAS, [facility] Primary Care Unavailable MINERVA ANDERSON Referring Unavailable TOMAS, [facility] Primary Care Unavailable MINERVA ANDERSON Referring Unavailable TOMAS, [facility] Primary Care Unavailable MINERVA ANDERSON Referring Unavailable TOMAS, [facility] Primary Care Unavailable TOMAS, [facility] Primary Care Unavailable MINERVA ANDERSON Referring Unavailable TOMAS, [facility] Primary Care Unavailable MINERVA ANDERSON Referring Unavailable TOMAS, [facility] Care Unavailable HOA GURROLA Attending Unavailedson e TOMAS, [facility] Primary Care Unavailable MINERVA ANDERSON Referring Unavailable TOMAS, [facility] Primary Care Unavailable DEBORAH NORMAN Attending Unavailable MINERVA ANDERSON Referring Unavailable TOMAS, LORENZO S Primary Care Unavailable MINERVA ANDERSON Referring Unavailable TOMAS, [facility] Primary Care Unavailable MINERVA ANDERSON Attending Unavailable MINERVA ANDERSON Referring Unavailable TOMAS, [facility] Primary Care Unavailable MINERVA ANDERSON Referring Unavailable TOMAS, [facility] Primary Care Unavailable MINERVA ANDERSON Attending Unavailable MINERVA ANDERSON Referring Unavailable TOMAS, [facility] Primary Care Unavailable MINERVA ANDERSON Referring Unavailable ANDREE HOLLIS Attending Unavailable TOMAS, [facility] Primary Care Unavailable MINERVA ANDERSON Referring Unavailable TOMAS, [facility] Primary Care Unavailable MINERVA ANDERSON Referring Unavailable ANDREE HOLLIS Attending Unavailable TOMAS, [facility] Care Unavailable MINERVA ANDERSON Referring Unavailable TOMAS, [facility] Primary Care Unavailable MINERVA ANDERSON Referring Unavailable TOMAS, [facility] Primary Care Unavailable MINERVA ANDERSON Referring Unavailable TOMAS, [facility] Primary Care Unavailable MINERVA ANDERSON Referring Unavailable TOMSA, [facility] Primary Care Unavailable ANDREE HOLLIS Referring Unavailable TOMAS, [facility] Primary Care Unavailable MINERVA ANDERSON Referring Unavailable TOMAS, [facility] Primary Care Unavailable MINERVA ANDERSON Attending Unavailable MINERVA ANDERSON Referring Unavailable TOMAS, [facility] Primary Care Unavailable TOMAS, [facility] Primary Care Unavailable TOMAS, [facility] Care Unavailable MINERVA ANDERSON Attending Unavailable TOMAS, [facility] Care Unavailable MINERVA ANDERSON Referring Unavailable TOMAS, [facility] Primary Care Unavailable MERT KRUEGER Attending Unavailable ANDREE HOLLIS Referring Unavailable TOMAS, [facility] Primary Care Unavailable MINERVA ANDERSON Referring Unavailable TOMAS, [facility] Primary Care Unavailable MINERVA ANDERSON Referring Unavailable MINERVA ANDERSON Attending Unavailable TOMAS, [facility] Primary Care Unavailable MINERVA ANDERSON Referring Unavailable TOMAS, [facility] Primary Care Unavailable MINERVA ANDERSON Referring Unavailable TOMAS, [facility] Primary Care Unavailable TOMAS, [facility] Primary Care Unavailable MINERVA ANDERSON Referring Unavailable TOMAS, [facility] Care Unavailable Dania VÁSQUEZ Attending Unavailable TOMAS, [facility] Primary Care Unavailable TOMAS, [facility] Primary Care Unavailable TOMAS, [facility] Primary Care Unavailable MINERVA ANDERSON Referring Unavailable LORENZO OLSON Primary Care Unavailable Allergies Allergy Classification Reported Allergen(s) Allergy Type Date of Onset Reaction(s) Facility (1 source) Penicillin; 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: [penicillin] Drug Allergy [facility] Repository Medications Current Medications Medication Drug Class(es) Dates Sig (Normalized) Sig (Original) acetaminophen 325 mg / HYDROcodone bitartrate 5 mg oral tablet (20 sources) Opioid Agonist Start: 04-02-2023 [place] 325 mg-5 mg oral tablet 1 tab(s), Oral, q6hr as needed for pain, 10 tab(s), Refill(s) 0, [id number], 188, cm, 04/02/23 10:50:00 EDT, Height/Length Dosing, 100, kg, 04/02/23 10:50:00 EDT, Weight Dosing Start Date: 04/02/23 Status: Ordered Start: 03-18-2023 [place] 325 mg-5 mg oral tablet 1 tab(s), Oral, q6hr as needed for pain, 10 tab(s), Refill(s) 0, [facility] #[id number], 188, cm, 03/18/23 10:50:00 EDT, Height/Length Dosing, [...] radiology test) (20 sources) Start: 06-25-20 End: 09-06-20 23 enteric contrast (will be provided with radiology [...] dissolve in water before taking, [facility], 188, cm, 01/02/22 10:27:00 [...] Comment on above: Take 1 tablet by [facility] every 8 hours as needed for nausea/vomiting. polyethylene glycol 3350 35592 mg powder for oral solution (7 sources) Osmotic Laxative Start: MiraLax oral powder for reconstitution 17 gram, Oral, Daily, 527 gram, Refill(s) 0, dissolve in water before taking, [facility], 188, cm, 01/02/22 10:27:00 EDT, Height/Length Dosing, 112, kg, 01/02/22 10:27:00 EDT, Weight Dosing Start Date: 01/02/22 Status: Ordered potassium citrate 10 meq extended release oral tablet (13 sources) Start: End: take 1 tablet by mouth twice daily potassium CITRATE 10 mEq ER Tab 10 mEq, 1 tab(s), Oral, BID, 180 tab(s), Refill(s) 3, [facility], 188, cm, 09/28/21 13:33:00 EST, Height/Length Dosing, 112.4, kg, 09/28/21 13:33:00 EST, Weight Dosing Start Date: 09/28/21 Status: Ordered Start: 09-28-2021 take 1 tablet by [facility] twice daily potassium CITRATE 10 mEq ER Tab 10 mEq, 1 tab(s), Oral, BID, 180 tab(s), Refill(s) 3, [facility], 188, cm, 09/28/21 13:33:00 [...] days., # 45 tab(s), Refills(s) 0, [id number], 188, cm, 04/02/23 10:50:00 EDT, Height/Length Dosing, [...] days., # 45 tab(s), Refills(s) 0, Pharmacy: [facility]/pharmacy #[id number], 187.6, cm, 08/20/22 7:01:00 [...] days, # 42 tab(s), Refills(s) 1, Pharmacy: [facility], 189, cm, 05/31/22 10:57:00 EDT, Height/Length [...] day(s), # 30 tab(s), Refills(s) 2, [facility] [place] [id number], 188, cm, 01/02/22 10:27:00 EDT, Height/Length [...] activity, # 30 tab(s), Refills(s) 2, Pharmacy: [id number], 188, cm, 01/02/22 10:27:00 EDT, [...] 15 tab(s), Refills(s) 6, [facility]acy: [id number], 188, cm, 10/24/22 10:33:00 EST, Height/Length Dosing, 112, kg, 10/24/22 10:33:00 EST, Weight Dosing Start Date: 10/24/22 Status: Ordered tamsulosin hydrochloride 0.4 mg oral capsule (20 sources) alpha-Adrenergic Taina Start: take 1 capsule by mouth twice daily Flomax 0.4 mg Cap 0.4 mg = 1 cap(s), Oral, BID, # 180 cap(s), Refills(s) 3, Pharmacy: [facility], 188, cm, 05/07/23 13:45:00 EDT, Height/Length Dosing, 109, kg, 05/07/23 13:45:00 EDT, Weight Dosing Start Date: 05/19/23 Status: Ordered take 1 capsule by mo [facility] every twenty-four hours Tamsulosin HCl 0.4 MG [...] BID, # 60 tab(s), Refills(s) 11, Pharmacy: [facility], 187, cm, 06/20/21 9:10:00 EDT, Height/Length Dosing, 109.2, kg, 06/20/21 9:10:00 EDT, Weight Dosing Start Date: 06/21/21 Status: Ordered Start: 07-08-2018 End: 10-02-2022 ELIQUIS 5 mg tab(s) Start: 07-08-2018 take 2 tablets by mo uth twice daily, then take 1 tablet by [...] 1 tablet by blake th once daily. capecitabine 500 mg oral tablet [...] procedure, # 2 tab(s), Refills(s) 0, Pharmacy: [facility] 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 Address: [address] [place] [address] Performed By: #### 5 7021-8 ####[facility] LABCLIA [id number] [place] [address] Basophils/100 WBC (Bld) 0.8 % Normal [facility] Comment on above: Order Comment: Speci men Type: BLOOD SPECIMENOrdering Facility: [facility] Address: [address] [place] [address] Performed By: #### 5 7021-8 ####[facility] LABCLIA [id number] [place] [address] Differential cell count method Nom (Bld) Auto Normal [facility] Comment on above: Order Comment: Speci men Type: BLOOD SPECIMENOrdering Facility: [facility] Address: [address] [place] [address] Performed By: #### 5 7021-8 ####[facility] LABCLIA [id number] [place] [address] Eosinophils (Bld) [#/Vol] 0.16 10*3/uL Normal <0.46 [facility] Comment on above: Order Comment: Speci men Type: BLOOD SPECIMENOrdering Facility: [facility] Address: [address] [place] [address] Performed By: #### 5 7021-8 ####[facility] LABCLIA [id number] [place] [address] Eosinophils/100 WBC (Bld) 2.1 % Normal [facility] Comment on above: Order Comment: Speci men Type: BLOOD SPECIMENOrdering Facility: [facility] Address: [address] [place] [address] Performed By: #### 5 7021-8 ####[facility] LABCLIA [id number] [place] [address] Erythrocyte distribution width (RBC) [Ratio] 15.8 % High 11.5-15.0 [facility] Comment on above: Order Comment: Speci men Type: BLOOD SPECIMENOrdering Facility: [facility] Address: [address] [place] [address] Performed By: #### 5 7021-8 ####[facility] LABCLIA [id number] [place] [address] Hematocrit (Bld) [Volume fraction] 38.2 % Low 39.0-51.0 [facility] Comment on above: Order Comment: Speci men Type: BLOOD SPECIMENOrdering Facility: [facility] Address: [address] [place] [address] Performed By: #### 5 7021-8 ####[facility] LABCLIA [id number] [place] [address] Hemoglobin (Bld) [Mass/Vol] 12.4 g/dL Low 13.0-17.0 [facility] Comment on above: Order Comment: Speci men Type: BLOOD SPECIMENOrdering Facility: [facility] Address: [address] [place] [address] Performed By: #### 5 7021-8 ####[facility] LABCLIA [id number] [place] [address] Immature granulocytes (Bld) [#/Vol] 0.03 10*3/uL Normal <0.10 [facility] Comment on above: Order Comment: Speci men Type: BLOOD SPECIMENOrdering Facility: [facility] Address: [address] [place] [address] Performed By: #### 5 7021-8 ####[facility] LABCLIA [id number] [place] [address] Immature granulocytes/100 WBC (Bld) 0.4 % Normal [facility] Comment on above: Order Comment: Speci men Type: BLOOD SPECIMENOrdering Facility: [facility] Address: [address] [place] [address] Performed By: #### 5 7021-8 ####[facility] LABCLIA [id number] [place] [address] Lymphocytes (Bld) [#/Vol] 0.91 10*3/uL Low 1.00-4.00 [facility] Comment on above: Order Comment: Speci men Type: BLOOD SPECIMENOrdering Facility: [facility] Address: [address] [place] [address] Performed By: #### 5 7021-8 ####[facility] LABCLIA [id number] [place] [address] Lymphocytes/100 WBC (Bld) 11.9 % Normal [facility] Comment on above: Order Comment: Speci men Type: BLOOD SPECIMENOrdering Facility: [facility] Address: [address] [place] [address] Performed By: #### 5 7021-8 ####[facility] LABCLIA [id number] [place] [address] MCH (RBC) [Entitic mass] 31.2 pg Normal 26.0-34.0 [facility] Comment on above: Order Comment: Speci men Type: BLOOD SPECIMENOrdering Facility: [facility] Address: [address] [place] [address] Performed By: #### 5 7021-8 ####[facility] LABCLIA [id number] [place] [address] MCHC (RBC) [Mass/Vol] 32.5 g/dL Normal 30.5-36.0 [facility] Comment on above: Order Comment: Speci men Type: BLOOD SPECIMENOrdering Facility: [facility] Address: [address] [place] [address] Performed By: #### 5 7021-8 ####[facility] LABCLIA [id number] [place] [address] MCV (RBC) [Entitic vol] 96.0 fL Normal 80.0-100.0 [facility] Comment on above: Order Comment: Speci men Type: BLOOD SPECIMENOrdering Facility: [facility] Address: [address] [place] [address] Performed By: #### 5 7021-8 ####[facility] LABCLIA [id number] [place] [address] Monocytes (Bld) [#/Vol] 0.74 10*3/uL Normal <0.87 [facility] Comment on above: Order Comment: Speci men Type: BLOOD SPECIMENOrdering Facility: [facility] Address: [address] [place] [address] Performed By: #### 5 7021-8 ####[facility] LABCLIA [id number] [place] [address] Monocytes/100 WBC (Bld) 9.7 % Normal [facility] Comment on above: Order Comment: Speci men Type: BLOOD SPECIMENOrdering Facility: [facility] Address: [address] [place] [address] Performed By: #### 5 7021-8 ####[facility] LABCLIA [id number] [place] [address] Neutrophils (Bld) [#/Vol] 5.73 10*3/uL Normal 1.45-7.50 [facility] Comment on above: Order Comment: Speci men Type: BLOOD SPECIMENOrdering Facility: [facility] Address: [address] [place] [address] Performed By: #### 5 7021-8 ####[facility] LABCLIA [id number] [place] [address] Neutrophils/100 WBC (Bld) 75.1 % Normal [facility] Comment on above: Order Comment: Speci men Type: BLOOD SPECIMENOrdering Facility: [facility] Address: [address] [place] [address] Performed By: #### 5 7021-8 ####[facility] LABCLIA [id number] [place] [address] Nucleated RBC (Bld) [#/Vol] 10*3/uL Normal <0.01 [facility] Comment on above: Order Comment: Speci men Type: BLOOD SPECIMENOrdering Facility: [facility] Address: [address] [place] [address] Performed By: #### 5 7021-8 ####[facility] LABCLIA [id number] [place] [address] Nucleated RBC/100 WBC (Bld) [Ratio] 0.0 /100 WBC Normal [facility] Comment on above: Order Comment: Speci men Type: BLOOD SPECIMENOrdering Facility: [facility] Address: [address] [place] [address] Performed By: #### 5 7021-8 ####[facility] LABCLIA [id number] [place] [address] Platelet mean volume (Bld) [Entitic vol] 9.9 fL Normal 9.0-12.7 [facility] Comment on above: Order Comment: Speci men Type: BLOOD SPECIMENOrdering Facility: [facility] Address: [address] [place] [address] Performed By: #### 5 7021-8 ####[facility] LABCLIA [id number] [place] [address] Platelets (Bld) [#/Vol] 182 10*3/uL Normal 150-400 [facility] Comment on above: Order Comment: Speci men Type: BLOOD SPECIMENOrdering Facility: [facility] Address: [address] [place] [address] Performed By: #### 5 7021-8 ####[facility] LABCLIA [id number] [place] [address] RBC (Bld) [#/Vol] 3.98 10*6/uL Low 4.20-6.00 [facility] Comment on above: Order Comment: Speci men Type: BLOOD SPECIMENOrdering Facility: [facility] Address: [address] [place] [address] Performed By: #### 5 7021-8 ####[facility] LABCLIA [id number] [place] [address] WBC (Bld) [#/Vol] 7.63 10*3/uL Normal 3.70-11.00 [facility] Comment on above: Order Comment: Speci men Type: BLOOD SPECIMENOrdering Facility: [facility] Address: [address] [place] [address] Performed By: #### 5 7021-8 ####[facility] LABCLIA [id number] [place] [address] CEA SerPl-mCncon 11-21-2023 Carcinoembryonic Ag [Mass/Vol] 1.8 ng/mL Normal <=2.9 [facility] Comment on above: Order Comment: Speci men Type: BLOOD SPECIMENOrdering Facility: [facility] Address: [address] [place] [address] Result Comment: Carc inoembryonic antigen test is [...] used interchangeably. Performed By: #### 2 039-6 ####[facility] LABCLIA [id number] KENDRAShawna AVENUEDESK [place] [id number] [place] CNOVSPon 11-21-2023 CNOVSP Normal [facility] Comprehensive metabolic 2000 panelon 11-21-2023 Albumin [Mass/Vol] 3.7 g/dL Low 3.9-4.9 [facility] Comment on above: Order Comment: Speci men Type: BLOOD SPECIMENOrdering Facility: [facility] Address: [address] [place] [address] Performed By: #### 2 4323-8 ####[facility] LABCLIA [id number] [place] [address] ALP [Catalytic activity/Vol] 85 U/L Normal 38-113 [facility] Comment on above: Order Comment: Speci men Type: BLOOD SPECIMENOrdering Facility: [facility] Address: [address] [place] [address] Performed By: #### 2 4323-8 ####[facility] LABCLIA [id number] [place] [address] ALT [Catalytic activity/Vol] 11 U/L Normal 10-54 [facility] Comment on above: Order Comment: Speci men Type: BLOOD SPECIMENOrdering Facility: [facility] Address: [address] [place] [address] Performed By: #### 2 4323-8 ####[facility] LABIA [id number] [place] [address] Anion gap [Moles/Vol] 9 mmol/L Normal 9-18 [facility] Comment on above: Order Comment: Speci men Type: BLOOD SPECIMENOrdering Facility: [facility] Address: [address] [place] [address] Performed By: #### 2 4323-8 ####[facility] LABCLIA [id number] [place] [address] AST [Catalytic activity/Vol] 14 U/L Normal 14-40 [facility] Comment on above: Order Comment: Speci men Type: BLOOD SPECIMENOrdering Facility: [facility] Address: [address] [place] [address] Performed By: #### 2 4323-8 ####[facility] LABCLIA [id number] [place] [address] Bilirubin [Mass/Vol] 0.3 mg/dL Normal 0.2-1.3 [facility] Comment on above: Order Comment: Speci men Type: BLOOD SPECIMENOrdering Facility: [facility] Address: [address] [place] [address] Performed By: #### 2 4323-8 ####[facility] LABCLIA [id number] [place] [address] Calcium [Mass/Vol] 9.2 mg/dL Normal 8.5-10.2 [facility] Comment on above: Order Comment: Speci men Type: BLOOD SPECIMENOrdering Facility: [facility] Address: [address] [place] [address] Performed By: #### 2 4323-8 ####[facility] LABCLIA [id number] [place] [address] Chloride [Moles/Vol] 109 mmol/L High 97-105 [facility] Comment on above: Order Comment: Speci men Type: BLOOD SPECIMENOrdering Facility: [facility] Address: [address] [place] [address] Performed By: #### 2 4323-8 ####[facility] LABCLIA [id number] [place] [address] CO2 [Moles/Vol] 26 mmol/L Normal 22-30 [facility] Comment on above: Order Comment: Speci men Type: BLOOD SPECIMENOrdering Facility: [facility] Address: [address] [place] [address] Performed By: #### 2 4323-8 ####[facility] LABCLIA [id number] [place] [address] Creatinine [Mass/Vol] 1.09 mg/dL Normal 0.73-1.22 [facility] Comment on above: Order Comment: Speci men Type: BLOOD SPECIMENOrdering Facility: [facility] Address: [address] [place] [address] Performed By: #### 2 4323-8 ####[facility] LABCLIA [id number] [place] [address] Creatinine and Glomerular filtration rate.predicted panel (S/P/Bld) 73 mL/min/1.73m??? Normal >=60 [facility] Comment on above: Order Comment: Isaii men Type: BLOOD SPECIMENOrdering Facility: [facility] Address: [address] [place] [address] Result Comment: Rebekah mated Glomerular Filtration Rate [...] actual GFR. Performed By: #### 2 4323-8 ####[facility] LABCLIA [id number] [place] [address] Glucose [Mass/Vol] 124 mg/dL High 74-99 [facility] Comment on above: Order Comment: Nazario brooks Type: BLOOD SPECIMENOrdering Facility: [facility] Address: [address] [place] [id number] Result Comment: The [employer] (ADA) provides guidance for cutoff [...] Standards of Medical Care in Diabetes 2016, [employer]. Diabetes Care. 2016.39(Suppl 1). Performed By: #### 2 4323-8 ####[facility] LABCLIA [id number] [place] [address] Potassium [Moles/Vol] 3.6 mmol/L Low 3.7-5.1 [facility] Comment on above: Order Comment: Speci men Type: BLOOD SPECIMENOrdering Facility: [facility] Address: [address] [place] [address] Performed By: #### 2 4323-8 ####[facility] LABCLIA [id number] [place] [address] Protein [Mass/Vol] 6.0 g/dL Low 6.3-8.0 [facility] Comment on above: Order Comment: Speci men Type: BLOOD SPECIMENOrdering Facility: [facility] Address: [address] [place] [address] Performed By: #### 2 4323-8 ####[facility] LABCLIA [id number] [place] [address] Sodium [Moles/Vol] 144 mmol/L Normal 136-144 [facility] Comment on above: Order Comment: Speci men Type: BLOOD SPECIMENOrdering Facility: [facility] Address: [address] [place] [address] Performed By: #### 2 4323-8 ####[facility] LABCLIA [id number] [place] [address] Urea nitrogen [Mass/Vol] 17 mg/dL Normal 9-24 [facility] Comment on above: Order Comment: Speci men Type: BLOOD SPECIMENOrdering Facility: [facility] Address: [address] [place] [address] Performed By: #### 2 4323-8 ####[facility] LABCLIA [id number] [place] [address] ANES POSTPROC EVALon 024 ANES POSTPROC EVAL HNO ID: [id number] Author: REX LIZAMA MD Service: Anesthesiology Author Type: Physician Type: Anesthesia Postprocedure Evaluation Filed: 11/05/2023 10:41 Note Text: POST ANESTHESIA EVALUATION NOTE : 1950 Procedure Summary Date: 11/05/23 Room / Location: Procedures Anesthesia Start: 952 Anesthesia Stop: 1011 Procedure: SIGMOIDOSCOPY Diagnosis: Encounter for follow-up surveillance of rectal cancer (High risk colon cancer surveillance: Personal history of rectal cancer) Scheduled Providers: Deborah Norman MD; Rex Lizama MD; Jacky Taylor APRN.BARREL ASSEMBLY INSPECTOR Responsible Provider: Rex Lizama MD Anesthesia Type: [...] November 05, 2023 TIME: 10:40 AM CSN: [id number] [facility] ANES PRE-OPon 11-05-2023 ANES PRE-OP HNO ID: [id number] Author: REX LIZAMA MD Service: Anesthesiology Author Type: Physician Type: Anesthesia Preprocedure Evaluation Filed: 11/05/2023 09:31 Note Text: ANESTHESIOLOGY DAY OF SURGERY NOTE : 1950 Procedure Information Date/Time: 11/05/23 0930 Scheduled providers: Deborah Norman MD; Rex Lizama MD; Jacky Taylor APRN.BARREL ASSEMBLY INSPECTOR Procedure: SIGMOIDOSCOPY Location: Procedures Estimated body mass [...] and consent discussed: yes. Patient / Responsible Alliance Party agrees to proceed: yes Patient / [...] none. Vitals Value Taken Time BP 127/91 11/05/23919 Pulse Resp 16 11/05/23919 Temp 36.1 ?C [...] November 05, 2023 TIME: 9:29 AM CSN: [id number] Normal [facility] Flexible Sigmoidoscopyon Flexible sigmoidoscopy [facility] Gastrointestinal Endoscopy Patient Name: Mervat Damon Procedure Date: 11/05/2023 9:46 AM Date of : 1950 Admit Type: Outpatient Age: 73 Room: [place] [address] Gender: Male Note Status: Finalized Attending MD: [...] for surveillance. Procedure Code(s): --- Professional --- 59113, Sigmoidoscopy, flexible; with biopsy, single or multiple CPT copyright 2020 [employer]. All rights reserved. The codes documented in this report are preliminary and upon security officer review may be revised to meet current [...] Loss: Estimated blood loss was minimal. Normal [facility] HISTORY PHYSICALon HISTORY PHYSICAL HNO ID: [id number] Author: DEBORAH NORMAN MD Service: Colorectal Author [...] ENDOSCOPY HISTORY AND PHYSICAL EXAM Mervat Damon [id number] Subjective HPI: Mervat Damon is a 72 [...] Anesthesia Prabhu Jacobs MD 11/05/2023 9:44 AM [facility] SURGICAL PATHOLOGYon 024 CASE REPORT [facility] Comment on above: Order Comment: Speci men Type: TISSUE SPECIMENOrdering Facility: [facility] Address: [address] [place] [address] Result Comment: Surg ica Pathology Report Case: [id number] Authorizing Provider: Deborah Norman MD Collected: 11/05/2023 10:06 AM Ordering Location: Procedures Received: 11/05/2023 10:33 AM Pathologist: Vinicius Beebe MD Specimens: A) - RECTAL POLYP B) - ANAL CANAL BIOPSY, Anal polyp Performed By: #### S ####[facility] LABCLIA [id number] [address] FINAL DIAGNOSIS [facility] Comment on above: Order Comment: Speci men Type: TISSUE SPECIMENOrdering Facility: [facility] Address: [address] [place] [address] Result Comment: A. R ectum, polypectomy: - Colonic mucosa with mild architectural distortion. B. Anal canal, polypectomy: - Polypoid squamous mucosa. Performed By: #### S ####[facility] LABCLIA [id number] [address] OF [facility] FINAL PERFORMING LAB [facility] Comment on above: Order Comment: Speci men Type: TISSUE SPECIMENOrdering Facility: [facility] Address: [address] [place] [address] Result Comment: Diag nostic interpretation performed at [facility], [facility] [place] [address] CLIA# [id number] Bank Teller: Pineda Conti M.D. Performed By: #### S ####[facility] [id number] [address] [place] GROSS DESCRIPTION A. RECTAL POLYP [facility] Comment on above: Order Comment: Speci men Type: TISSUE SPECIMENOrdering Facility: [facility] Address: [address] [place] [address] Result Comment: Rece ived in formalin are [...] in one cassette. Gross examination performed at [facility], [address] [place] [address] 11/05/2023 4:24 PM Performed By: #### S ####[facility] [id number] [place] [address] [place] Consent for Procedure/Surger yon 10-24-2023 Consent for Procedure/Surgery [id number]#1.00T IFF Normal [facility] Consent for Procedure/Surgery [id number]#1.00T IFF Normal [facility] IntraOperative Documentson 0 10-24-2023 IntraOperative Documents [id number]#1.00T IFF Normal [facility] CNPNon 10-22-2023 CNPN Normal [facility] Office/Clinic Note-Physician on 10-10-2023 Office/Clinic Note-Physician [id number]#1.00 TIFF Normal [facility] Consent for Treatmenton 09-21 Consent for Treatment [id number]#1.00 TIFF Normal [facility] Consultation Noteon 10-09-20 Consultation Note Patient: [...] hrs., # 15 tab(s), Refills(s) 6, Pharmacy: [facility] #[id number], 188, cm, 10/24/22 10:33:00 EST, Height/Length Dosing, 112, kg, 10/24/22 1... Flomax 0.4 mg Cap: 0.4 mg = 1 cap(s), Oral, BID, # 180 cap(s), Refills(s) 3, Pharmacy: [facility], 188, cm, 05/07/23 13:45:00 EDT, Height/Length Dosing, 109, kg, 05/07/23 13:45:00 EDT, Weight Dosing carvedilol 6.25 mg Tab: 6.25 mg = 1 tab(s), Oral, BID, # 180 tab(s), Refills(s) 3, Pharmacy: [facility] #[id number], 188, cm, 04/29/23 8:41:00 EDT, Height/Length Dosing, 106.8, kg, 04/29/23 8:41:00 EDT, Weight Dosing cyclobenzaprine 10 mg Tab: 10 mg = 1 tab(s), Oral, TID, PRN for spasm, # 20 tab(s), Refills(s) 0, Pharmacy: [facility] #[id number], 188, cm, 03/18/23 10:50:00 EDT, Height/Length Dosing, 111, kg, 03/18/23 10:50:00 EDT, Weight Dosing finasteride 5 mg Tab: 5 mg = 1 tab(s), Oral, Daily, X 90 day(s), # 90 tab(s), Refills(s) 3, Pharmacy: [facility], 188, cm, 10/24/22 10:33:00 EST, Height/Length Dosing, 112, kg, 10/24/22 10:33:00 EST, Weight Dosing hydrochlorothiazide 12.5 mg Cap: 12.5 mg = 1 cap(s), Oral, Daily, # 90 cap(s), Refills(s) 3, Pharmacy: [facility] #[id number], 188, cm, 04/29/23 8:41:00 EDT, Height/Length Dosing, 106.8, kg, 04/29/23 8:41:00 EDT, Weight Dosing valsartan 80 mg Tab: 80 mg = 1 tab(s), Oral, Daily, # 90 tab(s), Refills(s) 3, Pharmacy: [facility] #[id number], 188, cm, 04/29/23 8:41:00 EDT, Height/Length Dosing, [...] list: All Problems [place] / SNOMED CT 008927798 / Confirmed Inguinal hernia, right / SNOMED CT 280085659 / Confirmed Bulging of cervical intervertebral disc / SNOMED CT 9831365706 / Confirmed RA - Rheumatoid arthritis / SNOMED CT 6771283647 / Confirmed Cervical spinal stenosis / SNOMED CT 426851979 / Confirmed BPH with urinary obstruction / SNOMED CT 3962332025 / Confirmed Non-ischemic cardiomyopathy / SNOMED CT 611503810 / Confirmed BMI 31.0-31.9,adult / SNOMED CT 983938047 / Confirmed Tobacco non-user / SNOMED CT 554282522 / Confirmed Erectile dysfunction / SNOMED CT 1875779131 / Confirmed Rectal cancer / SNOMED CT 570670283 / Confirmed Neck pain without injury / SNOMED CT 154269181 / Confirmed Canceled: Arthritis, rheumatoid / SNOMED CT 685672724 Canceled: Kidney stones / SNOMED CT 168GF455-O349-3984-J2F7 -6W23K77ELE81 Canceled: Acute pulmonary embolism / SNOMED CT 6560397341 Canceled: Frequent episodes of bronchitis and pneumonia / SNOMED CT 777375873 Canceled: Nocturia / SNOMED CT 587958237 Canceled: Arthritis / SNOMED CT 8024085 Canceled: Left lower quadrant abdominal pain / SNOMED CT 283042421 Canceled: Shingles rash / SNOMED CT 4281636 Canceled: Hip pain, left / SNOMED CT 28239021 Canceled: Pneumonia / SNOMED CT 910242003 Canceled: History of blood clots / SNOMED CT 871827810 Canceled: Weak urine stream / SNOMED CT 242979919 Canceled: Rotator cuff syndrome of right shoulder / SNOMED CT 6881151 Canceled: Impingement syndrome of right shoulder region / SNOMED CT 166903890 Canceled: Left wrist pain / SNOMED CT 02825740 Canceled: Right ankle pain / SNOMED CT 270851292 Canceled: BMI 31.0-31.9,adult / SNOMED CT 367955033 Canceled: Rash and other nonspecific skin eruption / SNOMED CT 737235001 Canceled: Lower respiratory tract infection / SNOMED C (more content not included)... Normal [facility] Comment on above: Result Comment: Elec tronically Signed By: Cyndee Torres PA-C\.br\Date and Time Signed: 10/09/23 13:28 EST\.br\Electronically Co-Signed By: Reese Reid DO\.br\Date and Time Co-Signed: 10/10/23 08:26 EST Office/Clinic Note-Nurseon 1 12-10-2022 Office/Clinic Note-Nurse [id number]#1.00 TIFF Normal [facility] Office/Clinic Note-Physician on 10-09-2023 Office/Clinic Note-Physician [id number]#1.00 TIFF Normal [facility] Patient Correspondenceon Patient Correspondence [id number]#1.00 TIFF Normal [facility] Patient Correspondence [id number]#1.00 TIFF Normal [facility] Patient History Officeon Patient History Office [id number]#1.00 TIFF Normal [facility] Radiology Outside Office Logistics Center Manager yon 10-07-2023 Radiology Outside Office Copy [id number]#1.00 TIFF Normal [facility] CEA SerPl-mCncon 09-05-2023 Carcinoembryonic Ag [Mass/Vol] 1.8 ng/mL Normal <=2.9 [facility] Comment on above: Order Comment: Speci men Type: BLOOD SPECIMENOrdering Facility: [facility] Address: [address] [place] [address] Result Comment: Carc inoembryonic antigen test is used as an aid in monitoring response to treatment or recurrence in patients with established colorectal, breast, lung, prostatic, pancreatic, and ovarian carcinomas. Clinical correlation is required.The Carcinoembryonic antigen test was performed using the [employer] DXI paramagnetic particle chemiluminescent immunoassay method. Results obtained with different assay methods or kits cannot be used interchangeably. Performed By: #### 2 039-6 ####[facility] LABCLIA [id number] [place] [address] [place] CBC W Auto Differential pane l (Bld)on 08-27-2023 Basophils (Bld) [#/Vol] 0.06 10*3/uL Normal <0.11 [facility] Comment on above: Order Comment: Speci men Type: BLOOD SPECIMENOrdering Facility: [facility] Address: [address] [place] [address] Performed By: #### 5 7021-8 ####[facility] LABIA [id number] [place] [address] Basophils/100 WBC (Bld) 0.9 % Normal [facility] Comment on above: Order Comment: Speci men Type: BLOOD SPECIMENOrdering Facility: [facility] Address: [address] [place] [address] Performed By: #### 5 7021-8 ####[facility] LABCLIA [id number] [place] [address] Differential cell count method Nom (Bld) Auto Normal [facility] Comment on above: Order Comment: Speci men Type: BLOOD SPECIMENOrdering Facility: [facility] Address: [address] [place] [address] Performed By: #### 5 7021-8 ####[facility] LABCLIA [id number] [place] [address] Eosinophils (Bld) [#/Vol] 0.22 10*3/uL Normal <0.46 [facility] Comment on above: Order Comment: Speci men Type: BLOOD SPECIMENOrdering Facility: [facility] Address: [address] [place] [address] Performed By: #### 5 7021-8 ####[facility] LABCLIA [id number] [place] [address] Eosinophils/100 WBC (Bld) 3.2 % Normal [facility] Comment on above: Order Comment: Speci men Type: BLOOD SPECIMENOrdering Facility: [facility] Address: [address] [place] [address] Performed By: #### 5 7021-8 ####[facility] LABCLIA [id number] [place] [address] Erythrocyte distribution width (RBC) [Ratio] 15.5 % High 11.5-15.0 [facility] Comment on above: Order Comment: Speci men Type: BLOOD SPECIMENOrdering Facility: [facility] Address: [address] [place] [address] Performed By: #### 5 7021-8 ####[facility] LABCLIA [id number] [place] [address] Hematocrit (Bld) [Volume fraction] 41.2 % Normal 39.0-51.0 [facility] Comment on above: Order Comment: Speci men Type: BLOOD SPECIMENOrdering Facility: [facility] Address: [address] [place] [address] Performed By: #### 5 7021-8 ####[facility] LABCLIA [id number] [place] [address] Hemoglobin (Bld) [Mass/Vol] 13.4 g/dL Normal 13.0-17.0 [facility] Comment on above: Order Comment: Speci men Type: BLOOD SPECIMENOrdering Facility: [facility] Address: [address] [place] [address] Performed By: #### 5 7021-8 ####[facility] LABCLIA [id number] [place] [address] Immature granulocytes (Bld) [#/Vol] 10*3/uL Normal <0.10 [facility] Comment on above: Order Comment: Speci men Type: BLOOD SPECIMENOrdering Facility: [facility] Address: [address] [place] [address] Performed By: #### 5 7021-8 ####[facility] LABCLIA [id number] [place] [address] Immature granulocytes/100 WBC (Bld) 0.3 % Normal [facility] Comment on above: Order Comment: Speci men Type: BLOOD SPECIMENOrdering Facility: [facility] Address: [address] [place] [address] Performed By: #### 5 7021-8 ####[facility] LABCLIA [id number] [place] [address] Lymphocytes (Bld) [#/Vol] 0.85 10*3/uL Low 1.00-4.00 [facility] Comment on above: Order Comment: Speci men Type: BLOOD SPECIMENOrdering Facility: [facility] Address: [address] [place] [address] Performed By: #### 5 7021-8 ####[facility] LABCLIA [id number] [place] [address] Lymphocytes/100 WBC (Bld) 12.4 % Normal [facility] Comment on above: Order Comment: Speci men Type: BLOOD SPECIMENOrdering Facility: [facility] Address: [address] [place] [address] Performed By: #### 5 7021-8 ####[facility] LABCLIA [id number] [place] [address] MCH (RBC) [Entitic mass] 31.1 pg Normal 26.0-34.0 [facility] Comment on above: Order Comment: Speci men Type: BLOOD SPECIMENOrdering Facility: [facility] Address: [address] [place] [address] Performed By: #### 5 7021-8 ####[facility] LABCLIA [id number] [place] [address] MCHC (RBC) [Mass/Vol] 32.5 g/dL Normal 30.5-36.0 [facility] Comment on above: Order Comment: Speci men Type: BLOOD SPECIMENOrdering Facility: [facility] Address: [address] [place] [address] Performed By: #### 5 7021-8 ####[facility] LABCLIA [id number] [place] [address] MCV (RBC) [Entitic vol] 95.6 fL Normal 80.0-100.0 [facility] Comment on above: Order Comment: Speci men Type: BLOOD SPECIMENOrdering Facility: [facility] Address: [address] [place] [address] Performed By: #### 5 7021-8 ####[facility] LABCLIA [id number] [place] [address] Monocytes (Bld) [#/Vol] 0.60 10*3/uL Normal <0.87 [facility] Comment on above: Order Comment: Speci men Type: BLOOD SPECIMENOrdering Facility: [facility] Address: [address] [place] [address] Performed By: #### 5 7021-8 ####[facility] LABCLIA [id number] [place] [address] Monocytes/100 WBC (Bld) 8.8 % Normal [facility] Comment on above: Order Comment: Speci men Type: BLOOD SPECIMENOrdering Facility: [facility] Address: [address] [place] [address] Performed By: #### 5 7021-8 ####[facility] LABCLIA [id number] [place] [address] Neutrophils (Bld) [#/Vol] 5.10 10*3/uL Normal 1.45-7.50 [facility] Comment on above: Order Comment: Speci men Type: BLOOD SPECIMENOrdering Facility: [facility] Address: [address] [place] [address] Performed By: #### 5 7021-8 ####[facility] LABCLIA [id number] [place] [address] Neutrophils/100 WBC (Bld) 74.4 % Normal [facility] Comment on above: Order Comment: Speci men Type: BLOOD SPECIMENOrdering Facility: [facility] Address: [address] [place] [address] Performed By: #### 5 7021-8 ####[facility] LABCLIA [id number] [place] [address] Nucleated RBC (Bld) [#/Vol] 10*3/uL Normal <0.01 [facility] Comment on above: Order Comment: Speci men Type: BLOOD SPECIMENOrdering Facility: [facility] Address: [address] [place] [address] Performed By: #### 5 7021-8 ####[facility] LABCLIA [id number] [place] [address] Nucleated RBC/100 WBC (Bld) [Ratio] 0.0 /100 WBC Normal [facility] Comment on above: Order Comment: Speci men Type: BLOOD SPECIMENOrdering Facility: [facility] Address: [address] [place] [address] Performed By: #### 5 7021-8 ####[facility] LABCLIA [id number] [place] [address] Platelet mean volume (Bld) [Entitic vol] 10.0 fL Normal 9.0-12.7 [facility] Comment on above: Order Comment: Speci men Type: BLOOD SPECIMENOrdering Facility: [facility] Address: [address] [place] [address] Performed By: #### 5 7021-8 ####[facility] LABCLIA [id number] [place] [address] Platelets (Bld) [#/Vol] 188 10*3/uL Normal 150-400 [facility] Comment on above: Order Comment: Speci men Type: BLOOD SPECIMENOrdering Facility: [facility] Address: [address] [place] [address] Performed By: #### 5 7021-8 ####[facility] LABCLIA [id number] [place] [address] RBC (Bld) [#/Vol] 4.31 10*6/uL Normal 4.20-6.00 [facility] Comment on above: Order Comment: Speci men Type: BLOOD SPECIMENOrdering Facility: [facility] Address: [address] [place] [address] Performed By: #### 5 7021-8 ####[facility] LABCLIA [id number] [place] [address] WBC (Bld) [#/Vol] 6.85 10*3/uL Normal 3.70-11.00 [facility] Comment on above: Order Comment: Speci men Type: BLOOD SPECIMENOrdering Facility: [facility] Address: [address] [place] [address] Performed By: #### 5 7021-8 ####[facility] LABCLIA [id number] [place] [address] [facility] Carcinoembryonic Ag [Mass/Vol] 1.7 ng/mL Normal <=2.9 [facility] Comment on above: Order Comment: Speci men Type: BLOOD SPECIMENOrdering Facility: [facility] Address: [address] [place] [address] Result Comment: Carc inoembryonic antigen test is used as an aid in monitoring response to treatment or recurrence in patients with established colorectal, breast, lung, prostatic, pancreatic, and ovarian carcinomas. Clinical correlation is required.The Carcinoembryonic antigen test was performed using the Korina Aspen Unicel DXI paramagnetic particle chemiluminescent immunoassay method. Results obtained with different assay methods or kits cannot be used interchangeably. Performed By: #### 2 039-6 ####[facility] LABCLIA [id number] [id number] [id number] [place] CNOVSPon 08-27-2023 CNOVSP Normal [facility] CNPNon 08-27-2023 CNPN Normal [facility] Comprehensive metabolic 2000 panelon 08-27-2023 Albumin [Mass/Vol] 4.2 g/dL Normal 3.9-4.9 [facility] Comment on above: Order Comment: Speci men Type: BLOOD SPECIMENOrdering Facility: [facility] Address: [address] [place] [address] Performed By: #### 2 4323-8 ####[facility] LABCLIA [id number] [place] [address] ALP [Catalytic activity/Vol] 95 U/L Normal 38-113 [facility] Comment on above: Order Comment: Speci men Type: BLOOD SPECIMENOrdering Facility: [facility] Address: [address] [place] [address] Performed By: #### 2 4323-8 ####[facility] LABCLIA [id number] [place] [address] ALT [Catalytic activity/Vol] 7 U/L Low 10-54 [facility] Comment on above: Order Comment: Speci men Type: BLOOD SPECIMENOrdering Facility: [facility] Address: [address] [place] [address] Performed By: #### 2 4323-8 ####[facility] LABCLIA [id number] [place] [address] Anion gap [Moles/Vol] 9 mmol/L Normal 9-18 [facility] Comment on above: Order Comment: Speci men Type: BLOOD SPECIMENOrdering Facility: [facility] Address: [address] [place] [address] Performed By: #### 2 4323-8 ####[facility] LABCLIA [id number] [place] [address] AST [Catalytic activity/Vol] 13 U/L Low 14-40 [facility] Comment on above: Order Comment: Speci men Type: BLOOD SPECIMENOrdering Facility: [facility] Address: [address] [place] [address] Performed By: #### 2 4323-8 ####[facility] LABCLIA [id number] [place] [address] Bilirubin [Mass/Vol] 0.4 mg/dL Normal 0.2-1.3 [facility] Comment on above: Order Comment: Speci men Type: BLOOD SPECIMENOrdering Facility: [facility] Address: [address] [place] [address] Performed By: #### 2 4323-8 ####[facility] LABCLIA [id number] [place] [address] Calcium [Mass/Vol] 8.8 mg/dL Normal 8.5-10.2 [facility] Comment on above: Order Comment: Speci men Type: BLOOD SPECIMENOrdering Facility: [facility] Address: [address] [place] [address] Performed By: #### 2 4323-8 ####[facility] LABCLIA [id number] [place] [address] Chloride [Moles/Vol] 104 mmol/L Normal 97-105 [facility] Comment on above: Order Comment: Speci men Type: BLOOD SPECIMENOrdering Facility: [facility] Address: [address] [place] [address] Performed By: #### 2 4323-8 ####[facility] LABCLIA [id number] [place] [address] CO2 [Moles/Vol] 27 mmol/L Normal 22-30 [facility] Comment on above: Order Comment: Speci men Type: BLOOD SPECIMENOrdering Facility: [facility] Address: [address] [place] [address] Performed By: #### 2 4323-8 ####[facility] LABCLIA [id number] [place] [address] Creatinine [Mass/Vol] 1.21 mg/dL Normal 0.73-1.22 [facility] Comment on above: Order Comment: Speci men Type: BLOOD SPECIMENOrdering Facility: [facility] Address: [address] [place] [address] Performed By: #### 2 4323-8 ####[facility] LABCLIA [id number] [place] [address] Creatinine and Glomerular filtration rate.predicted panel (S/P/Bld) 64 mL/min/1.73m??? Normal >=60 [facility] Comment on above: Order Comment: Speci men Type: BLOOD SPECIMENOrdering Facility: [facility] Address: [address] [place] [address] Result Comment: Rebekah mated Glomerular Filtration Rate [...] actual GFR. Performed By: #### 2 4323-8 ####[facility] LABCLIA [id number] [place] [address] Glucose [Mass/Vol] 91 mg/dL Normal 74-99 [facility] Comment on above: Order Comment: Isaii men Type: BLOOD SPECIMENOrdering Facility: [facility] Address: [address] [place] [address] Result Comment: The [employer] Diabetes Association (ADA) provides guidance for cutoff [...] Standards of Medical Care in Diabetes 2016, [employer]. Diabetes Care. 2016.39(Suppl 1). Performed By: #### 2 4323-8 ####[facility] LABCLIA [id number] [place] [address] Potassium [Moles/Vol] 3.7 mmol/L Normal 3.7-5.1 [facility] Comment on above: Order Comment: Speci men Type: BLOOD SPECIMENOrdering Facility: [facility] Address: [address] [place] [address] Performed By: #### 2 4323-8 ####[facility] LABCLIA [id number] [place] [address] Protein [Mass/Vol] 6.2 g/dL Low 6.3-8.0 [facility] Comment on above: Order Comment: Speci men Type: BLOOD SPECIMENOrdering Facility: [facility] Address: [address] [place] [address] Performed By: #### 2 4323-8 ####[facility] LABCLIA [id number] [place] [address] Sodium [Moles/Vol] 140 mmol/L Normal 136-144 [facility] Comment on above: Order Comment: Speci men Type: BLOOD SPECIMENOrdering Facility: [facility] Address: [address] [place] [address] Performed By: #### 2 4323-8 ####[facility] LABCLIA [id number] [place] [address] Urea nitrogen [Mass/Vol] 22 mg/dL Normal 9-24 [facility] Comment on above: Order Comment: Speci men Type: BLOOD SPECIMENOrdering Facility: [facility] Address: [place] [address] Performed By: #### 2 4323-8 ####[facility] LABCLIA [id number] [place] [address] IntraOperative Documentson 1 10-27-2022 IntraOperative Documents [id number]#1.00T IFF Normal [facility] Consent for Treatmenton 11-0 Consent for Treatment [id number]#1.00T IFF Normal [facility] MR lumbar spine wo conon MR lumbar spine wo con [facility] Main [place] [address] [place] [address] MRI Report Signed Patient: Mervat Damon MR#: [id number] : 1950 Acct:[id number] Age/Sex: 72 / M ADM Date: 08/14/23 Loc: [facility] Room: Type: [facility] Attending Dr: Valencia ONEAL Copies to: JM [...] Houser Jr., D.O.08/14/2023 2:30 PM Dictation Location: [place] [address] Transcribed By: [facility] 08/14/23 1430 Dictated By: Hang Houser Jr, DO 08/14/23 1426 Signed By: 08/14/23 1430 Normal [facility] MR lumbar spine wo con [facility] [employer] [facility] [employer] Other MR lumbar spine wo con [facility] [employer] Other MR lumbar spine wo con [address] [facility] [employer] [place] [address] [employer] Other MR lumbar spine wo con MRI Report [employer] Other MR lumbar spine wo con Signed [employer] Other MR lumbar spine wo con Patient: Mervat Damon MR#: [id number] [employer] Other MR lumbar spine wo con 4313 [employer] Other MR lumbar spine wo con : 1950 Acct:[id number] [employer] Other MR lumbar spine wo con Age/Sex: 72 / M ADM Date: 08/14/23 [employer] Other MR lumbar spine wo con Loc: [facility] Room: [facility] [employer] Other MR lumbar spine wo con Attending Dr: Valencia Torres INCUBATOR TENDERMayraC [employer] Other MR lumbar spine wo con Copies to: LISA GodoyC [employer] Other MR lumbar spine wo con Ordering Provider: LISA GodoyC [employer] Other MR lumbar spine wo con Date of Service: 08/14/23 [employer] Other MR lumbar spine wo con MR/MR lumbar spine wo con: Polyneuropathy [employer] Other MR lumbar spine wo con MRI lumbar spine without IV contrast. [employer] Other MR lumbar spine wo con Reason for exam: Back pain. History of colorectal cancer.. No known injury. [employer] Other MR lumbar spine wo con COMPARISON: Lumbar spine series 05/17/2023. Ex [employer] Other MR lumbar spine wo con TECHNIQUE: Multisequence, multiplanar imaging of the lumbar spine was obtained without the use of IV [employer] Other MR lumbar spine wo con contrast. [employer] Other MR lumbar spine wo con FINDINGS: Vertebral body heights appear maintained. No bone marrow edema is seen. Presumed [employer] Other MR lumbar spine wo con postradiation bone marrow changes are seen involving the L5 vertebral body and visualized sacrum. [employer] Other MR lumbar spine wo con Spinal cord terminates in normal position without abnormal cord signal. No paraspinal mass. [employer] Other MR lumbar spine wo con Visualized retroperitoneum demonstrates presumed bilateral parapelvic cysts. [employer] Other MR lumbar spine wo con L1-L2: Diffuse broad-based disc bulge is present with central protrusion type disc herniation noted. [employer] Other MR lumbar spine wo con There is ligamentum flavum hypertrophy and facet joint degenerative changes. Findings are causing [employer] Other MR lumbar spine wo con moderate canal and severe left-sided neural foraminal stenosis. Mild right-sided neural foraminal [employer] Other MR lumbar spine wo con stenosis. [employer] Other MR lumbar spine wo con L2-L3: 5 mm retrolisthesis is noted. Broad-based disc bulge is present with ligamentum flavum [employer] Other MR lumbar spine wo con hypertrophy and facet joint degenerative changes. Findings are causing moderate canal and severe [employer] Other MR lumbar spine wo con bilateral neural foraminal narrowing. [employer] Other MR lumbar spine wo con L3-L4: 3 mm retrolisthesis. Diffuse broad-based disc bulge is present with ligamentum flavum [employer] Other MR lumbar spine wo con hypertrophy and facet joint degenerative changes causing mild canal and severe bilateral neural [employer] Other MR lumbar spine wo con foraminal stenosis. [employer] Other MR lumbar spine wo con L4-L5: 6 mm of anterolisthesis. Diffuse broad-based disc bulge is present with ligamentum flavum [employer] Other MR lumbar spine wo con hypertrophy and facet joint degenerative changes causing severe canal and right-sided neural [employer] Other MR lumbar spine wo con foraminal stenosis. Moderate left-sided neural foraminal stenosis. [employer] Other MR lumbar spine wo con L5-S1: No posterior disc pathology is noted. Facet joint degenerative changes. No significant canal [employer] Other MR lumbar spine wo con stenosis. Severe bilateral foraminal stenosis. [employer] Other MR lumbar spine wo con MR/MR lumbar spine wo con [employer] Other MR lumbar spine wo con Impression: Multilevel degenerative disc disease as described above. [employer] Other MR lumbar spine wo con Impression dictated by: Hang Houser Jr., D.OShirley08/14/2023 2:30 PM [employer] Other MR lumbar spine wo con Dictation Location: [place] [address] [employer] Other MR lumbar spine wo con Transcribed By: [facility] 08/14/23 [facility] [employer] Other MR lumbar spine wo con Dictated By: Hang Houser Jr DO 08/14/23 [facility] [employer] Other MR lumbar spine wo con Signed By: [employer] Other MR lumbar spine wo con 08/14/23 [facility] [employer] Other PT - Assessmentson 3 PT - Assessments [id number]#1.00 CD:127 Normal [facility] ANES POSTPROC EVALon 023 ANES POSTPROC EVAL HNO ID: [id number] Author: Sybil Proctor MD Service: ? Author [...] Scheduled Providers: Deborah Norman MD; Elba Snell APRN.BARREL ASSEMBLY INSPECTOR; Sybil Proctor MD; Santiago Sidhu RN Responsible [...] July 09, 2023 TIME: 2:49 PM CSN: [id number] [facility] ANES PRE-OPon 07-09-2023 ANES PRE-OP HNO ID: [id number] Author: Sybil Proctor MD Service: ? Author Type: Physician Type: Anesthesia Preprocedure Evaluation Filed: 07/09/2023 9:06 AM Note Text: ANESTHESIOLOGY DAY OF SURGERY NOTE : 1950 Procedure Information Date/Time: 07/09/23929 Scheduled providers: Deborah Norman MD; Elba Snell APRN.BARREL ASSEMBLY INSPECTOR; Sybil Proctor MD; Santiago Sidhu RN Procedure: [...] and consent discussed: yes. Patient / Responsible [employer] agrees to proceed: yes Patient / [...] No current facility (more content not included)... [facility] ANES PREOPon 07-09-2023 ANES PREOP HNO ID: [id number] Author: Toshia Mixon MD Service: Colorectal Author [...] July 09, 2023 TIME: 9:22 AM Normal [facility] Flexible Sigmoidoscopyon Flexible sigmoidoscopy [facility] Gastrointestinal Endoscopy Patient Name: Mervat Damon Procedure Date: 07/09/2023 9:19 AM Date of : 1950 Admit Type: Outpatient Age: 72 Room: [place] [address] Gender: Male Note Status: Finalized Attending MD: [...] for surveillance. Procedure Code(s): --- Professional --- 59494, 52, Sigmoidoscopy, flexible; diagnostic, including collection of specimen(s) by brushing or washing, when performed (separate procedure) CPT copyright 2020 [employer]. All rights reserved. The codes documented in this report are preliminary and upon security officer review may be revised to meet current [...] Blood Loss: Estimated blood loss: none. Normal [facility] Nonvisit Note - PTon 023 Nonvisit Note - PT cx will be out of town Normal [facility] SIGMOIDOSCOPYon 07-09-2023 [facility] Consultation Noteon 07-04-20 23 Consultation Note [id number]#1.00CD :127 [facility] PT - Assessmentson 3 PT - Assessments [id number]#1.00C D:127 Normal [facility] Nonvisit Note - PTon 023 Nonvisit Note - PT Pt. did not show to 06/27/23 outpatient PT re-eval appt. front desk assistant messaged to call pt. to reschedule pt.'s re-eval as he has further appointments scheduled and needs a re-eval. Normal [facility] CBC W Auto Differential pane l (Bld)on 06-20-2023 Basophils (Bld) [#/Vol] 0.05 10*3/uL Normal <0.11 [facility] Comment on above: Order Comment: Speci men Type: BLOOD SPECIMENOrdering Facility: [facility] Address: [address] [place] [address] Performed By: #### 5 7021-8 ####[facility] LABCLIA [id number] [place] [address] Basophils/100 WBC (Bld) 0.8 % Normal [facility] Comment on above: Order Comment: Speci men Type: BLOOD SPECIMENOrdering Facility: [facility] Address: [address] [place] [address] Performed By: #### 5 7021-8 ####[facility] LABCLIA [id number] [place] [address] Differential cell count method Nom (Bld) Auto Normal [facility] Comment on above: Order Comment: Speci men Type: BLOOD SPECIMENOrdering Facility: [facility] Address: [address] [place] [address] Performed By: #### 5 7021-8 ####[facility] LABCLIA [id number] [place] [address] Eosinophils (Bld) [#/Vol] 0.20 10*3/uL Normal <0.46 [facility] Comment on above: Order Comment: Speci men Type: BLOOD SPECIMENOrdering Facility: [facility] Address: [address] [place] [address] Performed By: #### 5 7021-8 ####[facility] LABCLIA [id number] [place] [address] Eosinophils/100 WBC (Bld) 3.2 % Normal [facility] Comment on above: Order Comment: Speci men Type: BLOOD SPECIMENOrdering Facility: [facility] Address: [address] [place] [address] Performed By: #### 5 7021-8 ####[facility] LABCLIA [id number] [place] [address] Erythrocyte distribution width (RBC) [Ratio] 16.4 % High 11.5-15.0 [facility] Comment on above: Order Comment: Speci men Type: BLOOD SPECIMENOrdering Facility: [facility] Address: [address] [place] [address] Performed By: #### 5 7021-8 ####[facility] LABCLIA [id number] [place] [address] Hematocrit (Bld) [Volume fraction] 37.4 % Low 39.0-51.0 [facility] Comment on above: Order Comment: Speci men Type: BLOOD SPECIMENOrdering Facility: [facility] Address: [address] [place] [address] Performed By: #### 5 7021-8 ####[facility] LABCLIA [id number] [place] [address] Hemoglobin (Bld) [Mass/Vol] 12.1 g/dL Low 13.0-17.0 [facility] Comment on above: Order Comment: Speci men Type: BLOOD SPECIMENOrdering Facility: [facility] Address: [address] [place] [address] Performed By: #### 5 7021-8 ####[facility] LABCLIA [id number] [place] [address] Immature granulocytes (Bld) [#/Vol] 0.04 10*3/uL Normal <0.10 [facility] Comment on above: Order Comment: Speci men Type: BLOOD SPECIMENOrdering Facility: [facility] Address: [address] [place] [address] Performed By: #### 5 7021-8 ####[facility] LABIA [id number] [place] [address] Immature granulocytes/100 WBC (Bld) 0.6 % Normal [facility] Comment on above: Order Comment: Speci men Type: BLOOD SPECIMENOrdering Facility: [facility] Address: [address] [place] [address] Performed By: #### 5 7021-8 ####[facility] LABCLIA [id number] [place] [address] Lymphocytes (Bld) [#/Vol] 0.82 10*3/uL Low 1.00-4.00 [facility] Comment on above: Order Comment: Speci men Type: BLOOD SPECIMENOrdering Facility: [facility] Address: [address] [place] [address] Performed By: #### 5 7021-8 ####[facility] LABCLIA [id number] [place] [address] Lymphocytes/100 WBC (Bld) 13.1 % Normal [facility] Comment on above: Order Comment: Speci men Type: BLOOD SPECIMENOrdering Facility: [facility] Address: [address] [place] [address] Performed By: #### 5 7021-8 ####[facility] LABCLIA [id number] [place] [address] MCH (RBC) [Entitic mass] 31.7 pg Normal 26.0-34.0 [facility] Comment on above: Order Comment: Speci men Type: BLOOD SPECIMENOrdering Facility: [facility] Address: [address] [place] [address] Performed By: #### 5 7021-8 ####[facility] LABCLIA [id number] [place] [address] MCHC (RBC) [Mass/Vol] 32.4 g/dL Normal 30.5-36.0 [facility] Comment on above: Order Comment: Speci men Type: BLOOD SPECIMENOrdering Facility: [facility] Address: [address] [place] [address] Performed By: #### 5 7021-8 ####[facility] LABCLIA [id number] [place] [address] MCV (RBC) [Entitic vol] 97.9 fL Normal 80.0-100.0 [facility] Comment on above: Order Comment: Speci men Type: BLOOD SPECIMENOrdering Facility: [facility] Address: [address] [place] [address] Performed By: #### 5 7021-8 ####[facility] LABCLIA [id number] [place] [address] Monocytes (Bld) [#/Vol] 0.83 10*3/uL Normal <0.87 [facility] Comment on above: Order Comment: Speci men Type: BLOOD SPECIMENOrdering Facility: [facility] Address: [address] [place] [address] Performed By: #### 5 7021-8 ####[facility] LABCLIA [id number] [place] [address] Monocytes/100 WBC (Bld) 13.3 % Normal [facility] Comment on above: Order Comment: Speci men Type: BLOOD SPECIMENOrdering Facility: [facility] Address: [address] [place] [address] Performed By: #### 5 7021-8 ####[facility] LABCLIA [id number] [place] [address] Neutrophils (Bld) [#/Vol] 4.32 10*3/uL Normal 1.45-7.50 [facility] Comment on above: Order Comment: Speci men Type: BLOOD SPECIMENOrdering Facility: [facility] Address: [address] [place] [address] Performed By: #### 5 7021-8 ####[facility] LABCLIA [id number] [place] [address] Neutrophils/100 WBC (Bld) 69.0 % Normal [facility] Comment on above: Order Comment: Speci men Type: BLOOD SPECIMENOrdering Facility: [facility] Address: [address] [place] [address] Performed By: #### 5 7021-8 ####[facility] LABCLIA [id number] [place] [address] Nucleated RBC (Bld) [#/Vol] 10*3/uL Normal <0.01 [facility] Comment on above: Order Comment: Speci men Type: BLOOD SPECIMENOrdering Facility: [facility] Address: [address] [place] [address] Performed By: #### 5 7021-8 ####[facility] LABCLIA [id number] [place] [address] Nucleated RBC/100 WBC (Bld) [Ratio] 0.0 /100 WBC Normal [facility] Comment on above: Order Comment: Speci men Type: BLOOD SPECIMENOrdering Facility: [facility] Address: [address] [place] [address] Performed By: #### 5 7021-8 ####[facility] LABIA [id number] [place] [address] Platelet mean volume (Bld) [Entitic vol] 9.7 fL Normal 9.0-12.7 [facility] [facility] Comment on above: Order Comment: Speci men Type: BLOOD SPECIMENOrdering Facility: [facility] Address: [address] [place] [address] Performed By: #### 5 7021-8 ####[facility] LABIA [id number] [place] [address] Platelets (Bld) [#/Vol] 196 10*3/uL Normal 150-400 [facility] Comment on above: Order Comment: Speci men Type: BLOOD SPECIMENOrdering Facility: [facility] Address: [address] [place] [address] Performed By: #### 5 7021-8 ####[facility] LABIA [id number] [place] [address] RBC (Bld) [#/Vol] 3.82 10*6/uL Low 4.20-6.00 [facility] Comment on above: Order Comment: Speci men Type: BLOOD SPECIMENOrdering Facility: [facility] Address: [address] [address] Performed By: #### 5 7021-8 ####[facility] LABCLIA [id number] [place] [address] WBC (Bld) [#/Vol] 6.26 10*3/uL Normal 3.70-11.00 [facility] Comment on above: Order Comment: Speci men Type: BLOOD SPECIMENOrdering Facility: [facility] Address: [address] [address] Performed By: #### 5 7021-8 ####[facility] LABIA [id number] [place] [address] Basophils (Bld) [#/Vol] 0.05 10*3/uL <0.11 k/uL [facility] Basophils/100 WBC (Bld) 0.8 % [facility] Differential cell count method Nom (Bld) Auto [facility] Eosinophils (Bld) [#/Vol] 0.20 10*3/uL <0.46 k/uL [facility] Eosinophils/100 WBC (Bld) 3.2 % [facility] Erythrocyte distribution width (RBC) [Ratio] 16.4 % High 11.5 - 15.0 % [facility] Hematocrit (Bld) [Volume fraction] 37.4 % Low 39.0 - 51.0 % [facility] Hemoglobin (Bld) [Mass/Vol] 12.1 g/dL Low 13.0 - 17.0 g/dL [facility] Immature granulocytes (Bld) [#/Vol] 0.04 10*3/uL <0.10 k/uL [facility] Immature granulocytes/100 WBC (Bld) 0.6 % [facility] Lymphocytes (Bld) [#/Vol] 0.82 10*3/uL Low 1.00 - 4.00 k/uL [facility] Lymphocytes/100 WBC (Bld) 13.1 % [facility] MCH (RBC) [Entitic mass] 31.7 pg 26.0 - 34.0 pg [facility] MCHC (RBC) [Mass/Vol] 32.4 g/dL 30.5 - 36.0 g/dL [facility] MCV (RBC) [Entitic vol] 97.9 fL 80.0 - 100.0 fL [facility] Monocytes (Bld) [#/Vol] 0.83 10*3/uL <0.87 k/uL [facility] Monocytes/100 WBC (Bld) 13.3 % [facility] Neutrophils (Bld) [#/Vol] 4.32 10*3/uL 1.45 - 7.50 k/uL [facility] Neutrophils/100 WBC (Bld) 69.0 % [facility] Nucleated RBC (Bld) [#/Vol] <0.01 k/uL [facility] Nucleated RBC/100 WBC (Bld) [Ratio] 0.0 /100 WBC [facility] Platelet mean volume (Bld) [Entitic vol] 9.7 fL 9.0 - 12.7 fL [facility] Platelets (Bld) [#/Vol] 196 10*3/uL 150 - 400 k/uL [facility] RBC (Bld) [#/Vol] 3.82 10*6/uL Low 4.20 - 6.0 0 m/uL [facility] WBC (Bld) [#/Vol] 6.26 10*3/uL 3.70 - 11.00 k/uL [facility] CEA SerPl-mCncon 06-20-2023 Carcinoembryonic Ag [Mass/Vol] 1.7 ng/mL Normal <=2.9 [facility] Comment on above: Order Comment: Speci men Type: BLOOD SPECIMENOrdering Facility: [facility] Address: [address] [place] [address] Result Comment: Carc inoembryonic antigen test is used as an aid in monitoring response to treatment or recurrence in patients with established colorectal, breast, lung, prostatic, pancreatic, and ovarian carcinomas. Clinical correlation is required.The Carcinoembryonic antigen test was performed using the Kor[employer] FTL SOLAR Unicel DXI paramagnetic particle chemiluminescent immunoassay method. Results obtained with different assay methods or kits cannot be used interchangeably. Performed By: #### 2 039-6 ####[facility] LABCLIA [id number] [address] [place] CNPNon 06-20-2023 CNPN Normal [facility] CT ABDOMEN W IVCONon [address] ABDOMEN W IVCON Normal [facility] CT CHEST W IVCONon 3 CT CHEST W IVCON Normal [facility] Comprehensive metabolic 2000 panelon 06-20-2023 Albumin [Mass/Vol] 3.9 g/dL Normal 3.9-4.9 [facility] Comment on above: Order Comment: Speci men Type: BLOOD SPECIMENOrdering Facility: [facility] Address: [address] [address] Performed By: #### 2 432-8, ####[facility] LABCLIA [id number] [place] [address] ALP [Catalytic activity/Vol] 97 U/L Normal 38-113 [facility] Comment on above: Order Comment: Speci men Type: BLOOD SPECIMENOrdering Facility: [facility] Address: [address] [address] Performed By: #### 2 432-8, ####[facility] LABCLIA [id number] [place] [address] ALT [Catalytic activity/Vol] 9 U/L Low 10-54 [facility] Comment on above: Order Comment: Speci men Type: BLOOD SPECIMENOrdering Facility: [facility] Address: [address] [address] Performed By: #### 2 432-8, ####[facility] LABCLIA [id number] [place] [address] Anion gap [Moles/Vol] 10 mmol/L Normal 9-18 [facility] Comment on above: Order Comment: Speci men Type: BLOOD SPECIMENOrdering Facility: [facility] Address: [address] [address] Performed By: #### 2 4323-8, ####[facility] LABCLIA [id number] [place] [address] AST [Catalytic activity/Vol] 11 U/L Low 14-40 [facility] Comment on above: Order Comment: Speci men Type: BLOOD SPECIMENOrdering Facility: [facility] Address: [address] [place] [address] Performed By: #### 2 4323-8, ####[facility] LABCLIA [id number] [place] [address] Bilirubin [Mass/Vol] 0.4 mg/dL Normal 0.2-1.3 [facility] Comment on above: Order Comment: Speci men Type: BLOOD SPECIMENOrdering Facility: [facility] Address: [address] [place] [address] Performed By: #### 2 43238, ####[facility] LABIA [id number] [place] [address] Calcium [Mass/Vol] 9.3 mg/dL Normal 8.5-10.2 [facility] Comment on above: Order Comment: Speci men Type: BLOOD SPECIMENOrdering Facility: [facility] Address: [address] [place] [address] Performed By: #### 2 432[address], ####[facility] LABIA [id number] [place] [address] Chloride [Moles/Vol] 109 mmol/L High 97-105 [facility] Comment on above: Order Comment: Speci men Type: BLOOD SPECIMENOrdering Facility: [facility] Address: [address] [place] [address] Performed By: #### 2 43238, ####[facility] LABIA [id number] [place] [address] CO2 [Moles/Vol] 26 mmol/L Normal 22-30 [facility] Comment on above: Order Comment: Speci men Type: BLOOD SPECIMENOrdering Facility: [facility] Address: [address] [id number] Performed By: #### 2 4323-8, ####[facility] LABCLIA [id number] [place] [address] Creatinine [Mass/Vol] 1.14 mg/dL Normal 0.73-1.22 [facility] Comment on above: Order Comment: Speci men Type: BLOOD SPECIMENOrdering Facility: [facility] Address: [address] Performed By: #### 2 4323-8, ####[facility] LABCLIA [id number] [place] [address] Creatinine and Glomerular filtration rate.predicted panel (S/P/Bld) 69 mL/min/1.73m??? Normal >=60 [facility] Comment on above: Order Comment: Speci men Type: BLOOD SPECIMENOrdering Facility: [facility] Address: [address] [address] Result Comment: Rebekah mated Glomerular Filtration Rate [...] actual GFR. Performed By: #### 2 4323-8, ####[facility] LABCLIA [id number] [place] [address] Glucose [Mass/Vol] 90 mg/dL Normal 74-99 [facility] Comment on above: Order Comment: Speci men Type: BLOOD SPECIMENOrdering Facility: [facility] Address: [address] [address] Result Comment: The [place] Diabetes [employer] (ADA) provides guidance for cutoff [...] Standards of Medical Care in Diabetes 2016, [place] [employer]. Diabetes Care. 2016.39(Suppl 1). Performed By: #### 2 4323-05, ####[facility] LABCLIA [id number] [place] [address] Potassium [Moles/Vol] 3.9 mmol/L Normal 3.7-5.1 [facility] Comment on above: Order Comment: Speci men Type: BLOOD SPECIMENOrdering Facility: [facility] Address: [address] [place] [address] Performed By: #### 2 4323-05, ####[facility] LABCLIA [id number] [place] [address] Protein [Mass/Vol] 6.1 g/dL Low 6.3-8.0 [facility] Comment on above: Order Comment: Speci men Type: BLOOD SPECIMENOrdering Facility: [facility] Address: [address] [place] [address] Performed By: #### 2 4323-05, ####[facility] LABCLIA [id number] [place] [address] Sodium [Moles/Vol] 145 mmol/L High 136-144 [facility] Comment on above: Order Comment: Speci men Type: BLOOD SPECIMENOrdering Facility: [facility] Address: [address] [address] Performed By: #### 2 43212-26, ####[facility] LABCLIA [id number] [place] [address] Urea nitrogen [Mass/Vol] 21 mg/dL Normal 9-24 [facility] Comment on above: Order Comment: Speci men Type: BLOOD SPECIMENOrdering Facility: [facility] Address: [place] [address] Performed By: #### 2 4323-8, 05548-6 ####[facility] LABCLIA [id number] [place] [address] Albumin [Mass/Vol] 3.9 g/dL 3.9 - 4.9 g/dL [facility] ALP [Catalytic activity/Vol] 97 U/L 38 - 113 U/L [facility] ALT [Catalytic activity/Vol] 9 U/L Low 10 - 54 U/L [facility] Anion gap [Moles/Vol] 10 mmol/L 9 - 18 mmol/L [facility] AST [Catalytic activity/Vol] 11 U/L Low 14 - 40 U/L [facility] Bilirubin [Mass/Vol] 0.4 mg/dL 0.2 - 1 .3 mg/dL [facility] Calcium [Mass/Vol] 9.3 mg/dL 8.5 - 10. 2 mg/dL [facility] Chloride [Moles/Vol] 109 mmol/L High 97 - 10 5 mmol/L [facility] CO2 [Moles/Vol] 26 mmol/L 22 - 30 mmol/L [facility] Creatinine [Mass/Vol] 1.14 mg/dL 0.73 - 1.22 mg/dL [facility] Estimated Glomerular Filtration Rate 69 mL/min/1.73m >=60 mL/min/1.73 m [facility] Glucose [Mass/Vol] 90 mg/dL 74 - 99 mg/dL [facility] Potassium [Moles/Vol] 3.9 mmol/L 3.7 - 5.1 mmol/L [facility] Protein [Mass/Vol] 6.1 g/dL Low 6.3 - 8.0 g/dL [facility] Sodium [Moles/Vol] 145 mmol/L High 136 - 144 mmol/L [facility] Urea nitrogen [Mass/Vol] 21 mg/dL 9 - 24 mg/dL [facility] MAGNESIUM BLDon 06-20-2023 Magnesium [Mass/Vol] 2.0 mg/dL 1.7 - 2 .3 mg/dL [facility] Magnesium SerPl-mCncon 06-20 Magnesium [Mass/Vol] 2.0 mg/dL Normal 1.7-2.3 [facility] Comment on above: Order Comment: Speci men Type: BLOOD SPECIMENOrdering Facility: [facility] Address: [address] [place] [address] Performed By: #### 2 4323-8, 76131-4 ####[facility] LABCLIA [id number] [place] [address] CNPNon 06-19-2023 CNPN Normal [facility] PT - Home Exercise Programon 06-10-2023 PT - Home Exercise Program [id number]#1.00 CD:127 Normal [facility] Consultation Noteon 06-07-20 Consultation Note [id number]#1.00C D:127 Normal [facility] Operative Reporton Operative Report [id number]#1.00 CD:127 Normal [facility] PT - Home Exercise Programon 06-06-2023 PT - Home Exercise Program [id number]#1.00C D:127 Normal [facility] CEA BLDon 05-29-2023 Carcinoembryonic Ag [Mass/Vol] 2.2 ng/mL <=2.9 ng/mL [facility] CBC W Auto Differential pane l (Bld)on 05-28-2023 Basophils (Bld) [#/Vol] 0.04 10*3/uL Normal <0.11 [facility] Comment on above: Order Comment: Speci men Type: BLOOD SPECIMENOrdering Facility: [facility] Address: [address] [place] [address] Performed By: #### 5 7021-8 ####[facility] LABCLIA [id number] [place] [address] Basophils/100 WBC (Bld) 0.4 % Normal [facility] Comment on above: Order Comment: Speci men Type: BLOOD SPECIMENOrdering Facility: [facility] Address: [address] [place] [address] Performed By: #### 5 7021-8 ####[facility] LABCLIA [id number] [place] [address] Differential cell count method Nom (Bld) Auto Normal [facility] Comment on above: Order Comment: Speci men Type: BLOOD SPECIMENOrdering Facility: [facility] Address: [address] [place] [address] Performed By: #### 5 7021-8 ####[facility] LABCLIA [id number] [place] [address] Eosinophils (Bld) [#/Vol] 0.16 10*3/uL Normal <0.46 [facility] Comment on above: Order Comment: Speci men Type: BLOOD SPECIMENOrdering Facility: [facility] Address: [address] [place] [address] Performed By: #### 5 7021-8 ####[facility] LABCLIA [id number] [place] [address] Eosinophils/100 WBC (Bld) 1.7 % Normal [facility] Comment on above: Order Comment: Speci men Type: BLOOD SPECIMENOrdering Facility: [facility] Address: [address] [place] [address] Performed By: #### 5 7021-8 ####[facility] LABCLIA [id number] [place] [address] Erythrocyte distribution width (RBC) [Ratio] 17.1 % High 11.5-15.0 [facility] Comment on above: Order Comment: Speci men Type: BLOOD SPECIMENOrdering Facility: [facility] Address: [address] [place] [address] Performed By: #### 5 7021-8 ####[facility] LABCLIA [id number] [place] [address] Hematocrit (Bld) [Volume fraction] 37.7 % Low 39.0-51.0 [facility] Comment on above: Order Comment: Speci men Type: BLOOD SPECIMENOrdering Facility: [facility] Address: [address] [place] [address] Performed By: #### 5 7021-8 ####[facility] LABCLIA [id number] [place] [address] Hemoglobin (Bld) [Mass/Vol] 12.2 g/dL Low 13.0-17.0 [facility] Comment on above: Order Comment: Speci men Type: BLOOD SPECIMENOrdering Facility: [facility] Address: [address] [place] [address] Performed By: #### 5 7021-8 ####[facility] LABCLIA [id number] [place] [address] Immature granulocytes (Bld) [#/Vol] 0.05 10*3/uL Normal <0.10 [facility] Comment on above: Order Comment: Speci men Type: BLOOD SPECIMENOrdering Facility: [facility] Address: [address] [place] [address] Performed By: #### 5 7021-8 ####[facility] LABCLIA [id number] [place] [address] Immature granulocytes/100 WBC (Bld) 0.5 % Normal [facility] Comment on above: Order Comment: Speci men Type: BLOOD SPECIMENOrdering Facility: [facility] Address: [address] [place] [address] Performed By: #### 5 7021-8 ####[facility] LABCLIA [id number] [place] [address] Lymphocytes (Bld) [#/Vol] 0.65 10*3/uL Low 1.00-4.00 [facility] Comment on above: Order Comment: Speci men Type: BLOOD SPECIMENOrdering Facility: [facility] Address: [address] [place] [address] Performed By: #### 5 7021-8 ####[facility] LABCLIA [id number] [place] [address] Lymphocytes/100 WBC (Bld) 6.8 % Normal [facility] Comment on above: Order Comment: Speci men Type: BLOOD SPECIMENOrdering Facility: [facility] Address: [address] [place] [address] Performed By: #### 5 7021-8 ####[facility] LABIA [id number] [place] [address] MCH (RBC) [Entitic mass] 32.3 pg Normal 26.0-34.0 [facility] Comment on above: Order Comment: Speci men Type: BLOOD SPECIMENOrdering Facility: [facility] Address: [address] [place] [address] Performed By: #### 5 7021-8 ####[facility] LABIA [id number] [place] [address] MCHC (RBC) [Mass/Vol] 32.4 g/dL Normal 30.5-36.0 [facility] Comment on above: Order Comment: Speci men Type: BLOOD SPECIMENOrdering Facility: [facility] Address: [address] [place] [address] Performed By: #### 5 7021-8 ####[facility] LABIA [id number] [place] [address] MCV (RBC) [Entitic vol] 99.7 fL Normal 80.0-100.0 [facility] Comment on above: Order Comment: Speci men Type: BLOOD SPECIMENOrdering Facility: [facility] Address: [address] [place] [address] Performed By: #### 5 7021-8 ####[facility] LABCLIA [id number] [place] [address] Monocytes (Bld) [#/Vol] 0.71 10*3/uL Normal <0.87 [facility] Comment on above: Order Comment: Speci men Type: BLOOD SPECIMENOrdering Facility: [facility] Address: [address] [place] [address] Performed By: #### 5 7021-8 ####[facility] LABCLIA [id number] [place] [address] Monocytes/100 WBC (Bld) 7.4 % Normal [facility] Comment on above: Order Comment: Speci men Type: BLOOD SPECIMENOrdering Facility: [facility] Address: [address] [place] [address] Performed By: #### 5 7021-8 ####[facility] LABCLIA [id number] [place] [address] Neutrophils (Bld) [#/Vol] 7.93 10*3/uL High 1.45-7.50 [facility] Comment on above: Order Comment: Speci men Type: BLOOD SPECIMENOrdering Facility: [facility] Address: [address] [place] [address] Performed By: #### 5 7021-8 ####[facility] LABCLIA [id number] [place] [address] Neutrophils/100 WBC (Bld) 83.2 % Normal [facility] Comment on above: Order Comment: Speci men Type: BLOOD SPECIMENOrdering Facility: [facility] Address: [address] [place] [address] Performed By: #### 5 7021-8 ####[facility] LABCLIA [id number] [place] [address] Nucleated RBC (Bld) [#/Vol] 10*3/uL Normal <0.01 [facility] Comment on above: Order Comment: Speci men Type: BLOOD SPECIMENOrdering Facility: [facility] Address: [address] [address] Performed By: #### 5 7021-8 ####[facility] LABCLIA [id number] [place] [address] Nucleated RBC/100 WBC (Bld) [Ratio] 0.0 /100 WBC Normal [facility] Comment on above: Order Comment: Speci men Type: BLOOD SPECIMENOrdering Facility: [facility] Address: [address] [place] [address] Performed By: #### 5 7021-8 ####[facility] LABCLIA [id number] [place] [address] Platelet mean volume (Bld) [Entitic vol] 10.1 fL Normal 9.0-12.7 [facility] Comment on above: Order Comment: Speci men Type: BLOOD SPECIMENOrdering Facility: [facility] Address: [address] [place] [address] Performed By: #### 5 7021-8 ####[facility] LABCLIA [id number] [place] [address] Platelets (Bld) [#/Vol] 206 10*3/uL Normal 150-400 [facility] Comment on above: Order Comment: Speci men Type: BLOOD SPECIMENOrdering Facility: [facility] Address: [address] [place] [address] Performed By: #### 5 7021-8 ####[facility] LABCLIA [id number] [place] [address] RBC (Bld) [#/Vol] 3.78 10*6/uL Low 4.20-6.00 [facility] Comment on above: Order Comment: Speci men Type: BLOOD SPECIMENOrdering Facility: [facility] Address: [address] [place] [address] Performed By: #### 5 7021-8 ####[facility] LABCLIA [id number] [place] [address] WBC (Bld) [#/Vol] 9.54 10*3/uL Normal 3.70-11.00 [facility] Comment on above: Order Comment: Speci men Type: BLOOD SPECIMENOrdering Facility: [facility] Address: [address] [place] [address] Performed By: #### 5 7021-8 ####[facility] LABCLIA [id number] [place] [address] Basophils (Bld) [#/Vol] 0.04 10*3/uL <0.11 k/uL [facility] Basophils/100 WBC (Bld) 0.4 % [facility] Differential cell count method Nom (Bld) Auto [facility] Eosinophils (Bld) [#/Vol] 0.16 10*3/uL <0.46 k/uL [facility] Eosinophils/100 WBC (Bld) 1.7 % [facility] Erythrocyte distribution width (RBC) [Ratio] 17.1 % High 11.5 - 15.0 % [facility] Hematocrit (Bld) [Volume fraction] 37.7 % Low 39.0 - 51.0 % [facility] Hemoglobin (Bld) [Mass/Vol] 12.2 g/dL Low 13.0 - 17.0 g/dL [facility] Immature granulocytes (Bld) [#/Vol] 0.05 10*3/uL <0.10 k/uL [facility] Immature granulocytes/100 WBC (Bld) 0.5 % [facility] Lymphocytes (Bld) [#/Vol] 0.65 10*3/uL Low 1.00 - 4.00 k/uL [facility] Lymphocytes/100 WBC (Bld) 6.8 % [facility] MCH (RBC) [Entitic mass] 32.3 pg 26.0 - 34.0 pg [facility] MCHC (RBC) [Mass/Vol] 32.4 g/dL 30.5 - 36.0 g/dL [facility] MCV (RBC) [Entitic vol] 99.7 fL 80.0 - 100.0 fL [facility] Monocytes (Bld) [#/Vol] 0.71 10*3/uL <0.87 k/uL [facility] Monocytes/100 WBC (Bld) 7.4 % [facility] Neutrophils (Bld) [#/Vol] 7.93 10*3/uL High 1.45 - 7.50 k/uL [facility] Neutrophils/100 WBC (Bld) 83.2 % [facility] Nucleated RBC (Bld) [#/Vol] <0.01 k/uL [facility] Nucleated RBC/100 WBC (Bld) [Ratio] 0.0 /100 WBC [facility] Platelet mean volume (Bld) [Entitic vol] 10.1 fL 9.0 - 12.7 fL [facility] Platelets (Bld) [#/Vol] 206 10*3/uL 150 - 400 k/uL [facility] RBC (Bld) [#/Vol] 3.78 10*6/uL Low 4.20 - 6.0 0 m/uL [facility] WBC (Bld) [#/Vol] 9.54 10*3/uL 3.70 - 11.00 k/uL [facility] CEA SerPl-mCncon 05-28-2023 Carcinoembryonic Ag [Mass/Vol] 2.2 ng/mL Normal <=2.9 [facility] Comment on above: Order Comment: Speci men Type: BLOOD SPECIMENOrdering Facility: [facility] Address: [address] [place] [address] Result Comment: Carc inoembryonic antigen test is used as an aid in monitoring response to treatment or recurrence in patients with established colorectal, breast, lung, prostatic, pancreatic, and ovarian carcinomas. Clinical correlation is required.The Carcinoembryonic antigen test was performed using the [employer] F[employer] SOLAR [employer] DXI paramagnetic particle chemiluminescent immunoassay method. Results obtained with different assay methods or kits cannot be used interchangeably. Performed By: #### 2 039-6 ####[facility] LABCLIA [id number] [address] [place] CNOVSPon 05-28-2023 CNOVSP Normal [facility] Comprehensive metabolic 2000 panelon 05-28-2023 Albumin [Mass/Vol] 3.8 g/dL Low 3.9-4.9 [facility] Comment on above: Order Comment: Speci men Type: BLOOD SPECIMENOrdering Facility: [facility] Address: [address] [address] Performed By: #### 2 4323-8 ####[facility] LABCLIA [id number] [place] [address] ALP [Catalytic activity/Vol] 93 U/L Normal 38-113 [facility] Comment on above: Order Comment: Speci men Type: BLOOD SPECIMENOrdering Facility: [facility] Address: [address] [address] Performed By: #### 2 4323-8 ####[facility] LABCLIA [id number] [place] [address] ALT [Catalytic activity/Vol] 9 U/L Low 10-54 [facility] Comment on above: Order Comment: Speci men Type: BLOOD SPECIMENOrdering Facility: [facility] Address: [address] [place] [address] Performed By: #### 2 4323-8 ####[facility] LABCLIA [id number] [place] [address] Anion gap [Moles/Vol] 9 mmol/L Normal 9-18 [facility] Comment on above: Order Comment: Speci men Type: BLOOD SPECIMENOrdering Facility: [facility] Address: [address] [address] Performed By: #### 2 4323-8 ####[facility] LABCLIA [id number] [place] [address] AST [Catalytic activity/Vol] 15 U/L Normal 14-40 [facility] Comment on above: Order Comment: Speci men Type: BLOOD SPECIMENOrdering Facility: [facility] Address: [address] [place] [address] Performed By: #### 2 4323-8 ####[facility] LABCLIA [id number] [place] [address] Bilirubin [Mass/Vol] 0.4 mg/dL Normal 0.2-1.3 [facility] Comment on above: Order Comment: Speci men Type: BLOOD SPECIMENOrdering Facility: [facility] Address: [address] [address] Performed By: #### 2 4323-8 ####[facility] LABCLIA [id number] [place] [address] Calcium [Mass/Vol] 9.3 mg/dL Normal 8.5-10.2 [facility] Comment on above: Order Comment: Speci men Type: BLOOD SPECIMENOrdering Facility: [facility] Address: [address] [place] [address] Performed By: #### 2 4323-8 ####[facility] LABCLIA [id number] [place] [address] Chloride [Moles/Vol] 105 mmol/L Normal 97-105 [facility] Comment on above: Order Comment: Speci men Type: BLOOD SPECIMENOrdering Facility: [facility] Address: [address] [address] Performed By: #### 2 4323-8 ####[facility] LABCLIA [id number] [place] [address] CO2 [Moles/Vol] 27 mmol/L Normal 22-30 [facility] Comment on above: Order Comment: Speci men Type: BLOOD SPECIMENOrdering Facility: [facility] Address: [address] [address] Performed By: #### 2 4323-8 ####[facility] LABCLIA [id number] [place] [address] Creatinine [Mass/Vol] 1.12 mg/dL Normal 0.73-1.22 [facility] Comment on above: Order Comment: Speci men Type: BLOOD SPECIMENOrdering Facility: [facility] Address: [address] [place] [address] Performed By: #### 2 4323-8 ####[facility] LABCLIA [id number] [place] [address] ESTIMATED GLOMERULAR FILTRATION RATE 71 mL/min/1.73m??? Normal >=60 [facility] Comment on above: Order Comment: Nazario brooks Type: BLOOD SPECIMENOrdering Facility: [facility] Address: [address] [place] [address] Result Comment: Rebekah mated Glomerular Filtration Rate [...] actual GFR. Performed By: #### 2 4323-8 ####[facility] LABCLIA [id number] [place] [address] Glucose [Mass/Vol] 86 mg/dL Normal 74-99 [facility] Comment on above: Order Comment: Nazario brooks Type: BLOOD SPECIMENOrdering Facility: [facility] Address: [address] [place] [address] Result Comment: The [place] Diabetes Association (ADA) provides guidance for cutoff [...] Standards of Medical Care in Diabetes 2016, [employer]. Diabetes Care. 2016.39(Suppl 1). Performed By: #### 2 4323-8 ####[facility] LABCLIA [id number] [place] [address] Potassium [Moles/Vol] 3.8 mmol/L Normal 3.7-5.1 [facility] Comment on above: Order Comment: Speci men Type: BLOOD SPECIMENOrdering Facility: [facility] Address: [address] [place] [address] Performed By: #### 2 4323-8 ####[facility] LABCLIA [id number] [place] [address] Protein [Mass/Vol] 6.1 g/dL Low 6.3-8.0 [facility] Comment on above: Order Comment: Speci men Type: BLOOD SPECIMENOrdering Facility: [facility] Address: [address] [place] [address] Performed By: #### 2 4323-8 ####[facility] LABCLIA [id number] [place] [address] Sodium [Moles/Vol] 141 mmol/L Normal 136-144 [facility] Comment on above: Order Comment: Speci men Type: BLOOD SPECIMENOrdering Facility: [facility] Address: [address] [address] Performed By: #### 2 4323-8 ####[facility] LABCLIA [id number] [place] [address] Urea nitrogen [Mass/Vol] 19 mg/dL Normal 9-24 [facility] Comment on above: Order Comment: Speci men Type: BLOOD SPECIMENOrdering Facility: [facility] Address: [address] [place] [address] Performed By: #### 2 4323-8 ####[facility] LABCLIA [id number] [place] [address] Albumin [Mass/Vol] 3.8 g/dL Low 3.9 - 4.9 g/dL [facility] ALP [Catalytic activity/Vol] 93 U/L 38 - 113 U/L [facility] ALT [Catalytic activity/Vol] 9 U/L Low 10 - 54 U/L [facility] Anion gap [Moles/Vol] 9 mmol/L 9 - 18 mmol/L [facility] AST [Catalytic activity/Vol] 15 U/L 14 - 40 U/L [facility] Bilirubin [Mass/Vol] 0.4 mg/dL 0.2 - 1 .3 mg/dL [facility] Calcium [Mass/Vol] 9.3 mg/dL 8.5 - 10. 2 mg/dL [facility] Chloride [Moles/Vol] 105 mmol/L 97 - 10 5 mmol/L [facility] CO2 [Moles/Vol] 27 mmol/L 22 - 30 mmol/L [facility] Creatinine [Mass/Vol] 1.12 mg/dL 0.73 - 1.22 mg/dL [facility] Estimated Glomerular Filtration Rate 71 mL/min/1.73m >=60 mL/min/1.73 m [facility] Glucose [Mass/Vol] 86 mg/dL 74 - 99 mg/dL [facility] Potassium [Moles/Vol] 3.8 mmol/L 3.7 - 5.1 mmol/L [facility] Protein [Mass/Vol] 6.1 g/dL Low 6.3 - 8.0 g/dL [facility] Sodium [Moles/Vol] 141 mmol/L 136 - 144 mmol/L [facility] Urea nitrogen [Mass/Vol] 19 mg/dL 9 - 24 mg/dL [facility] PT - Assessmentson PT - Assessments .[id number]#1.00 CD:127 [facility] PT - Consentson 05-24-2023 PT - Consents .[id number]#1.00 CD:127 [facility] PT - Home Exercise Programon 05-24-2023 PT - Home Exercise Program .[id number]#1.00 CD:127 [facility] PT - Orderson 05-24-2023 PT - Orders .[id number]#1.00 CD:127 Normal [facility] MR cervical spine wo/w conon 05-23-2023 MR cervical spine wo/w [address] [address] MRI Report Signed Patient: Mervat Damon MR#: [id number] : 1950 Acct:[id number] Age/Sex: 72 / M ADM Date: 05/22/23 Loc: MR Room: Type: [facility] Attending Dr: Valencia ONEAL Copies to: JM [...] Brett Crowley M.D.05/23/2023 12:40 PM Dictation Location: [facility]13 Transcribed By: [facility] 05/23/23 1240 Dictated By: Brett Crowley II, MD 05/23/23 1228 Signed By: 05/23/23 1240 Normal [facility] MR cervical spine wo/w con [facility] [employer] Other MR cervical spine wo/w con [facility] [employer] Other MR cervical spine wo/w con [address] [facility] [employer] Other MR cervical spine wo/[place] [address] [employer] Other MR cervical spine wo/w con MRI Report [employer] Other MR cervical spine wo/w con Signed [employer] Other MR cervical spine wo/w con Patient: Mervat Damon MR#: [id number] [employer] Other MR cervical spine wo/w con 4313 [employer] Other MR cervical spine wo/w con : 1950 Acct:[id number] [employer] Other MR cervical spine wo/w con Age/Sex: 72 / M ADM Date: 05/22/23 [employer] Other MR cervical spine wo/w con Loc: MR Room: Type: [facility] [employer] Other MR cervical spine wo/w con Attending Dr: Valencia Torres [employer] Other MR cervical spine wo/w con Copies to: LISA GodoyC [employer] Other MR cervical spine wo/w con Ordering Provider: JM Godoy [employer] Other MR cervical spine wo/w con Date of Service: 05/22/23 [employer] Other MR cervical spine wo/w con MR/MR cervical spine wo/w con: M54.12 [employer] Other MR cervical spine wo/w con MR cervical spine wo/w con 05/22/2023 9:21 PM [employer] Other MR cervical spine wo/w con SIGNS AND SYMPTOMS: Neck pain, stiffness, history of colorectal cancer [employer] Other MR cervical spine wo/w con PROTOCOL: Multiplanar multisequence MR images of the cervical spine were obtained with and without [employer] Other MR cervical spine wo/w con IV contrast [employer] Other MR cervical spine wo/w con CONTRAST: 20 mL of intravenous ProHance [employer] Other MR cervical spine wo/w con COMPARISON: 03/18/2023 and 10/20/2015 [employer] Other MR cervical spine wo/w con FINDINGS: The bones of the cervical spine are in anatomic alignment. There is preservation of [employer] Other MR cervical spine wo/w con vertebral body heights. There is intervertebral fusion at C4-C5 with anterior fusion from C5 through [employer] Other MR cervical spine wo/w con C7. This is unchanged. The marrow signal is within normal limits. The cord is normal in signal. No [employer] Other MR cervical spine wo/w con epidural or paraspinous fluid collection is appreciated. The visualized paraspinous soft tissues are [employer] Other MR cervical spine wo/w con within normal limits. The prevertebral soft tissues are within normal limits. [employer] Other MR cervical spine wo/w con At C2-C3: There is uncovertebral joint spurring and uncovertebral joint spurring. There is mild to [employer] Other MR cervical spine wo/w con moderate left neural foraminal narrowing without spinal canal narrowing. [employer] Other MR cervical spine wo/w con At C3-C4: There is a broad-based disc bulge with facet and negative joint degenerative change [employer] Other MR cervical spine wo/w con contributing to moderate bilateral neural foraminal narrowing with mild spinal canal narrowing. [employer] Other MR cervical spine wo/w con These changes are slightly worse when compared to the previous MRI. [employer] Other MR cervical spine wo/w con At C4-C5: There is intervertebral fusion with uncovertebral joint spurring and facet hypertrophy. [employer] Other MR cervical spine wo/w con There is moderate severe left and mild right neural foraminal narrowing. This mild spinal canal [employer] Other MR cervical spine wo/w con narrowing. There has been improvement in spinal canal stenosis since the previous MRI. [employer] Other MR cervical spine wo/w con At C5-C6: There is uncovertebral joint spurring and facet hypertrophy with moderate bilateral neural [employer] Other MR cervical spine wo/w con foraminal narrowing. No significant spinal canal narrowing. [employer] Other MR cervical spine wo/w con At C6-C7: There is a broad-based disc bulge with facet and uncovertebral joint degenerative change [employer] Other MR cervical spine wo/w con contributing to severe bilateral neural foraminal narrowing with mild spinal canal narrowing. [employer] Other MR cervical spine wo/w con At C7-T1: Facet hypertrophy is present bilaterally contributing to moderate bilateral neural [employer] Other MR cervical spine wo/w con foraminal narrowing. There is no significant spinal canal narrowing. [employer] Other MR cervical spine wo/w con MR/MR cervical spine wo/w con [employer] Other MR cervical spine wo/w con IMPRESSION: [employer] Other MR cervical spine wo/w con No cord compression or cord signal abnormality. [employer] Other MR cervical spine wo/w con No abnormal postcontrast enhancement. [employer] Other MR cervical spine wo/w con Significant multilevel disc, facet, and uncovertebral joint degenerative change contributing to [employer] Other MR cervical spine wo/w con varying degrees of spinal canal and neural foraminal narrowing, as detailed above. [employer] Other MR cervical spine wo/w con Impression dictated by: Brett Crowley M.D.05/23/2023 12:40 PM [employer] Other MR cervical spine wo/w con Dictation Location: [address] [address] [employer] Other MR cervical spine wo/w con Transcribed By: SOLIS 05/23/23 1240 [employer] Other MR cervical spine wo/w con Dictated By: Brett Crowley II, MD 05/23/23 122 [employer] Other MR cervical spine wo/w con Signed By: [employer] Other MR cervical spine wo/w con 05/23/23 1240 [employer] Other PT - Orderson 05-23-2023 PT - Orders [id number]#1.00C D:127 Normal [facility] Creatinine (Bld) [Mass/Vol]O rdered By: Valencia Torres on 05-22-2023 Creatinine [Mass/Vol] 1.3 mg/dL 0.6-1.3 [facility] Comment on above: ER/ESD physician is notified/shown [...] in mGy = na DAP = na [facility] Consent for Treatmenton 04-21 Consent for Treatment [id number]#1.00C D:127 Normal [facility] Physician Orderon 05-17-2023 Physician Order [id number]#1.00 CD:127 [facility] Consent for Procedure/Surger yon 05-15-2023 Consent for Procedure/Surgery [id number]#1.00C D:127 Normal [facility] Basic metabolic 2000 panelon 05-14-2023 Anion gap [Moles/Vol] 7 mmol/L Low 9-18 [facility] Comment on above: Order Comment: Speci men Type: BLOOD SPECIMENOrdering Facility: [facility] Address: [address] [place] [address] Performed By: #### 2 4321-2 ####[facility] LABCLIA [id number] [place] [address] Calcium [Mass/Vol] 9.3 mg/dL Normal 8.5-10.2 [facility] Comment on above: Order Comment: Speci men Type: BLOOD SPECIMENOrdering Facility: [facility] Address: [address] [place] [address] Performed By: #### 2 4321-2 ####[facility] LABCLIA [id number] [place] [address] Chloride [Moles/Vol] 105 mmol/L Normal 97-105 [facility] Comment on above: Order Comment: Speci men Type: BLOOD SPECIMENOrdering Facility: [facility] Address: [address] [place] [address] Performed By: #### 2 4321-2 ####[facility] LABCLIA [id number] [place] [address] CO2 [Moles/Vol] 28 mmol/L Normal 22-30 [facility] Comment on above: Order Comment: Speci men Type: BLOOD SPECIMENOrdering Facility: [facility] Address: [address] [place] [address] Performed By: #### 2 4321-2 ####[facility] LABCLIA [id number] [place] [address] Creatinine [Mass/Vol] 1.08 mg/dL Normal 0.73-1.22 [facility] Comment on above: Order Comment: Speci men Type: BLOOD SPECIMENOrdering Facility: [facility] Address: [address] [place] [address] Performed By: #### 2 4321-2 ####[facility] LABCLIA [id number] [place] [address] ESTIMATED GLOMERULAR FILTRATION RATE 74 mL/min/1.73m??? Normal >=60 [facility] Comment on above: Order Comment: Isaiamador brooks Type: BLOOD SPECIMENOrdering Facility: [facility] Address: [address] [place] [address] Result Comment: Rebekah mated Glomerular Filtration Rate [...] actual GFR. Performed By: #### 2 4321-2 ####[facility] LABCLIA [id number] [place] [address] Glucose [Mass/Vol] 106 mg/dL High 74-99 [facility] Comment on above: Order Comment: Nazario brooks Type: BLOOD SPECIMENOrdering Facility: [facility] Address: [address] [place] [address] Result Comment: The [place] Diabetes Association (ADA) provides guidance for cutoff [...] Standards of Medical Care in Diabetes 2016, [place] [employer]. Diabetes Care. 2016.39(Suppl 1). Performed By: #### 2 4321-2 ####[facility] LABCLIA [id number] [place] [address] Potassium [Moles/Vol] 3.8 mmol/L Normal 3.7-5.1 [facility] Comment on above: Order Comment: Speci men Type: BLOOD SPECIMENOrdering Facility: [facility] Address: [address] [place] [address] Performed By: #### 2 4321-2 ####[facility] LABCLIA [id number] [place] [address] Sodium [Moles/Vol] 140 mmol/L Normal 136-144 [facility] Comment on above: Order Comment: Speci men Type: BLOOD SPECIMENOrdering Facility: [facility] Address: [address] [place] [address] Performed By: #### 2 4321-2 ####[facility] LABCLIA [id number] [place] [address] Urea nitrogen [Mass/Vol] 22 mg/dL Normal 9-24 [facility] Comment on above: Order Comment: Speci men Type: BLOOD SPECIMENOrdering Facility: [facility] Address: [address] [place] [address] Performed By: #### 2 4321-2 ####[facility] LABCLIA [id number] [place] [address] Anion gap [Moles/Vol] 7 mmol/L Low 9 - 18 mmol/L [facility] Calcium [Mass/Vol] 9.3 mg/dL 8.5 - 10. 2 mg/dL [facility] Chloride [Moles/Vol] 105 mmol/L 97 - 10 5 mmol/L [facility] CO2 [Moles/Vol] 28 mmol/L 22 - 30 mmol/L [facility] Creatinine [Mass/Vol] 1.08 mg/dL 0.73 - 1.22 mg/dL [facility] Estimated Glomerular Filtration Rate 74 mL/min/1.73m >=60 mL/min/1.73 m [facility] Glucose [Mass/Vol] 106 mg/dL High 74 - 99 mg/dL [facility] Potassium [Moles/Vol] 3.8 mmol/L 3.7 - 5.1 mmol/L [facility] Sodium [Moles/Vol] 140 mmol/L 136 - 144 mmol/L [facility] Urea nitrogen [Mass/Vol] 22 mg/dL 9 - 24 mg/dL [facility] CNPNon 05-14-2023 CNPN Normal [facility] Consent for Treatmenton 04-20 Consent for Treatment [id number]#1.00 CD:127 Normal [facility] Consultation Noteon 05-07-20 Consultation Note Patient: [...] cap(s), Oral, Daily hydrocortisone Top 2.5% [facility] [place] 325 mg-5 mg oral tablet 1 tab(s), PRN, Oral, q6hr ondansetron 4 mg Tab 8 mg = 2 tab(s), PRN, Oral, q8hr predniSONE 5 mg Tab 5 mg = 1 tab(s), Oral, Daily prochlorperazine 10 mg Tab valsartan 80 mg Tab 80 mg = 1 tab(s), Oral, Daily Vitamin C 1,000 mg, Oral, Daily Problem list: All Problems BMI 31.0-31.9,adult / SNOMED CT 093234583 / Confirmed BPH with urinary obstruction / SNOMED CT 2271193744 / Confirmed Bulging of cervical intervertebral disc / SNOMED CT 0553770527 / Confirmed Cervical spinal stenosis / SNOMED CT 366129508 / Confirmed Erectile dysfunction / SNOMED CT 5614025615 / Confirmed Hammertoe / SNOMED CT 421572236 / Confirmed Inguinal hernia, right / SNOMED CT 895065331 / Confirmed Neck pain without injury / SNOMED CT 477870157 / Confirmed Non-ischemic cardiomyopathy / SNOMED CT 599872007 / Confirmed RA - Rheumatoid arthritis / SNOMED CT 3759312513 / Confirmed Rectal cancer / SNOMED CT 155648390 / Confirmed Tobacco non-user / SNOMED CT 175576863 / Confirmed Histories Past Medical History: Active RA - Rheumatoid arthritis (9484077506) Cervical spinal stenosis (240383444) Family History: Primary malignant neoplasm of bladder Father Cancer...... Mother Comments: 07/07/2018 12:11 EDT - Paulette Shah RN Pancreatic Sister Comments: 07/07/2018 12:11 YARI - Paulette Shah RN liver Procedure history: Sigmoidoscopy (98146899) on 08/20/2022 at 71 Years. Cataract extraction and insertion of intraocular lens (2950039513) on 02/24/2019 at 68 Years. Comments: 02/24/2019 17:10 EDT Mayra Gusman RN, Kathie Sonja left Right eye cataract extraction and insertion of intraocular lens (2444206727) on 02/12/2019 at 68 Years. Laparoscopic repair of inguinal hernia (69596339) on 01/01/2018 at 67 Years. Comments: 01/01/2018 18:31 YARI Alexandra RN, Vanessa Dahl ROBOTIC ASSISTED RIGHT INGUINAL HERNIA REPAIR WITH MESH LT STENT (93813627) on 05/23/2016 at 65 Years. LT ESWL ([id number]) on 03/22/2016 at 65 Years. Comments: 04/04/2019 8:10 Jennie Palomino MA 01/05/2016, 03/08/2016 RT ESWL (695253335) on 12/22/2015 at 65 Years. Comments: 04/04/2019 8:09 Jennie Palomino MA 12/15/2015 Cystoscopy (07454415) on 09/28/2015 at 64 Years. Cervical spinal fusion x2 (127632851). Colonoscopy (168101127). Hammer toe operation (159711). Cervical spinal fusion (117316993). Hemorrhoidectomy (03739497). Social History Social & Psychosocial Habits Alcohol 12/12/2015 Risk Assessment: Denies Alcohol Use 08/29/2020 Type: Beer, Wine Has alcohol use interfered with work or home life? No Do you ever drink more than intended? No Has anyone been hurt or at risk by your drinking? 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 Normal [facility] Comment on above: Result Comment: Elec tronically Signed By: Anthony ARRINGTON, Bryon Matos\.br\Date and Time Signed: 05/07/23 14:20 EDT HIPAA Forms Officeon 023 HIPAA Forms Office [id number]#1.00 CD:127 Normal [facility] Legal Correspondence Officeo n 05-07-2023 Legal Correspondence Office [id number]#1.00 CD:127 Normal [facility] Legal Correspondence Office [id number]#1.00 CD:127 Normal [facility] Office/Clinic Note-Physician on 05-07-2023 Office/Clinic Note-Physician [id number]#1.00 CD:127 Normal [facility] Orders Officeon 05-07-2023 Orders Office [id number]#1.00 CD:127 Normal [facility] Patient Correspondenceon Patient Correspondence [id number]#1.00 CD:127 Normal [facility] Patient Correspondence [id number]#1.00 CD:127 Normal [facility] Patient Correspondence [id number]#1.00 CD:127 Normal [facility] Patient Correspondence [id number]#1.00 CD:127 Normal [facility] Patient Correspondence [id number]#1.00 CD:127 Normal [facility] Patient Correspondence [id number]#1.00 CD:127 [facility] [facility] Patient History Officeon Patient History Office [id number]#1.00 CD:127 Normal [facility] Physician Orderon 05-07-2023 Physician Order [id number]#1.00 CD:127 Normal [facility] CNPNon 05-03-2023 CNPN Normal [facility] [place] Outside Labson 05-01-2023 Outside Labs [id number]#1.00 CD:127 Normal [facility] Progress Note-Nurseon 2022 Progress Note-Nurse [id number] [id number]#1.00 CD:127 Normal [facility] Consent for Treatmenton 04-20 Consent for Treatment [id number]#1.00C D:127 Normal [facility] Heart and Vascular Office/Cl inic Noteon [...] intact- no rash or concerning lesions Procedure [facility]- 01/02/19 CONCLUSIONS: 1. Essentially normal [...] 180 tab(s), Refills(s) 3, Pharmacy: [facility] #[id number], 188, cm, 04/29/23 8:41:00 EDT, Height/Length Dosing, 106.8, kg, 04/29/23 8:41:00 EDT, Weight Dosing hydrochlorothiazide, 12.5 mg = 1 cap(s), Oral, Daily, # 90 cap(s), Refills(s) 3, Pharmacy: [facility] #[id number], 188, cm, 04/29/23 8:41:00 EDT, Height/Length Dosing, 106.8, kg, 04/29/23 8:41:00 EDT, Weight Dosing valsartan, 80 mg = 1 tab(s), Oral, Daily, # 90 tab(s), Refills(s) 3, Pharmacy: [facility] #[id number], 188, cm, 04/29/23 8:41:00 EDT, Height/Length Dosing, 106.8, kg, 04/29/23 8:41:00 EDT, Weight Dosing Follow-up With When Contact Information Dilan ARRINGTON, Santiago Medina Within 6 months Additional Instructions: Call for sooner apt with new/worsening symptoms Patient Education Heart-Healthy Eating Plan, Qomj-ja-Bfyr Problem List/Past Medical History Ongoing BMI 31.0-31.9,adult [...] (more content not included)... Normal [facility] Comment on above: Result Comment: Elec [...] (more content not included)... Normal [facility] Outside Records Officeon Outside Records Office [id number]#1.00 CD:127 Normal [facility] Referrals Officeon Referrals Office [id number]#1.00 CD:127 Normal [facility] MRI RECTUM WO/W IVCONon - MRI RECTUM WO/W IVCON * * *Final [...] Apr 19 2023 7:18AM EST [id number] Normal [facility] CNPNon 04-17-2023 CNPN Normal [facility] Consultation Noteon 04-17-20 23 Consultation Note [id number]#1.00C D:127 Normal [facility] CBC W Auto Differential pane l (Bld)on 04-16-2023 Basophils (Bld) [#/Vol] 0.07 10*3/uL Normal <0.11 [facility] Comment on above: Order Comment: Speci men Type: BLOOD SPECIMENOrdering Facility: [facility] Address: [address] [address] Performed By: #### 5 7021-8 ####[facility] LABIA [id number] [place] [address] Basophils/100 WBC (Bld) 0.8 % Normal [facility] Comment on above: Order Comment: Speci men Type: BLOOD SPECIMENOrdering Facility: [facility] Address: [address] [address] Performed By: #### 5 7021-8 ####[facility] LABCLIA [id number] [place] [address] Differential cell count method Nom (Bld) Auto Normal [facility] Comment on above: Order Comment: Speci men Type: BLOOD SPECIMENOrdering Facility: [facility] Address: [address] [place] [address] Performed By: #### 5 7021-8 ####[facility] LABCLIA [id number] [place] [address] Eosinophils (Bld) [#/Vol] 0.14 10*3/uL Normal <0.46 [facility] Comment on above: Order Comment: Speci men Type: BLOOD SPECIMENOrdering Facility: [facility] Address: [address] [place] [address] Performed By: #### 5 7021-8 ####[facility] LABCLIA [id number] [place] [address] Eosinophils/100 WBC (Bld) 1.7 % Normal [facility] Comment on above: Order Comment: Speci men Type: BLOOD SPECIMENOrdering Facility: [facility] Address: [address] [place] [address] Performed By: #### 5 7021-8 ####[facility] LABCLIA [id number] [place] [address] Erythrocyte distribution width (RBC) [Ratio] 17.3 % High 11.5-15.0 [facility] Comment on above: Order Comment: Speci men Type: BLOOD SPECIMENOrdering Facility: [facility] Address: [address] [place] [address] Performed By: #### 5 7021-8 ####[facility] LABCLIA [id number] [place] [address] Hematocrit (Bld) [Volume fraction] 35.2 % Low 39.0-51.0 [facility] Comment on above: Order Comment: Speci men Type: BLOOD SPECIMENOrdering Facility: [facility] Address: [address] [address] Performed By: #### 5 7021-8 ####[facility] LABCLIA [id number] [place] [address] Hemoglobin (Bld) [Mass/Vol] 11.3 g/dL Low 13.0-17.0 [facility] Comment on above: Order Comment: Speci men Type: BLOOD SPECIMENOrdering Facility: [facility] Address: [address] [place] [address] Performed By: #### 5 7021-8 ####[facility] LABCLIA [id number] [place] [address] Immature granulocytes (Bld) [#/Vol] 0.13 10*3/uL High <0.10 [facility] Comment on above: Order Comment: Speci men Type: BLOOD SPECIMENOrdering Facility: [facility] Address: [address] [address] Performed By: #### 5 7021-8 ####[facility] LABCLIA [id number] [place] [address] Immature granulocytes/100 WBC (Bld) 1.6 % Normal [facility] Comment on above: Order Comment: Speci men Type: BLOOD SPECIMENOrdering Facility: [facility] Address: [address] [address] Performed By: #### 5 7021-8 ####[facility] LABCLIA [id number] [place] [address] Lymphocytes (Bld) [#/Vol] 1.09 10*3/uL Normal 1.00-4.00 [facility] Comment on above: Order Comment: Speci men Type: BLOOD SPECIMENOrdering Facility: [facility] Address: [address] [address] Performed By: #### 5 7021-8 ####[facility] LABCLIA [id number] [place] [address] Lymphocytes/100 WBC (Bld) 13.1 % Normal [facility] Comment on above: Order Comment: Speci men Type: BLOOD SPECIMENOrdering Facility: [facility] Address: [address] [place] [address] Performed By: #### 5 7021-8 ####[facility] LABCLIA [id number] [place] [address] MCH (RBC) [Entitic mass] 31.9 pg Normal 26.0-34.0 [facility] Comment on above: Order Comment: Speci men Type: BLOOD SPECIMENOrdering Facility: [facility] Address: [address] [place] [address] Performed By: #### 5 7021-8 ####[facility] LABIA [id number] [place] [address] MCHC (RBC) [Mass/Vol] 32.1 g/dL Normal 30.5-36.0 [facility] Comment on above: Order Comment: Speci men Type: BLOOD SPECIMENOrdering Facility: [facility] Address: [address] [place] [address] Performed By: #### 5 7021-8 ####[facility] LABIA [id number] [place] [address] MCV (RBC) [Entitic vol] 99.4 fL Normal 80.0-100.0 [facility] Comment on above: Order Comment: Speci men Type: BLOOD SPECIMENOrdering Facility: [facility] Address: [address] [place] [address] Performed By: #### 5 7021-8 ####[facility] LABIA [id number] [place] [address] Monocytes (Bld) [#/Vol] 0.75 10*3/uL Normal <0.87 [facility] Comment on above: Order Comment: Speci men Type: BLOOD SPECIMENOrdering Facility: [facility] Address: [address] [address] Performed By: #### 5 7021-8 ####[facility] LABCLIA [id number] [place] [address] Monocytes/100 WBC (Bld) 9.0 % Normal [facility] Comment on above: Order Comment: Speci men Type: BLOOD SPECIMENOrdering Facility: [facility] Address: [address] [address] Performed By: #### 5 7021-8 ####[facility] LABCLIA [id number] [place] [address] Neutrophils (Bld) [#/Vol] 6.14 10*3/uL Normal 1.45-7.50 [facility] Comment on above: Order Comment: Speci men Type: BLOOD SPECIMENOrdering Facility: [facility] Address: [address] [address] Performed By: #### 5 7021-8 ####[facility] LABCLIA [id number] [place] [address] Neutrophils/100 WBC (Bld) 73.8 % Normal [facility] Comment on above: Order Comment: Speci men Type: BLOOD SPECIMENOrdering Facility: [facility] Address: [address] [place] [address] Performed By: #### 5 7021-8 ####[facility] LABCLIA [id number] [place] [address] Nucleated RBC (Bld) [#/Vol] 10*3/uL Normal <0.01 [facility] Comment on above: Order Comment: Speci men Type: BLOOD SPECIMENOrdering Facility: [facility] Address: [address] [place] [address] Performed By: #### 5 7021-8 ####[facility] LABCLIA [id number] [place] [address] Nucleated RBC/100 WBC (Bld) [Ratio] 0.0 /100 WBC Normal [facility] Comment on above: Order Comment: Speci men Type: BLOOD SPECIMENOrdering Facility: [facility] Address: [address] [place] [address] Performed By: #### 5 7021-8 ####[facility] LABCLIA [id number] [place] [address] Platelet mean volume (Bld) [Entitic vol] 10.0 fL Normal 9.0-12.7 [facility] Comment on above: Order Comment: Speci men Type: BLOOD SPECIMENOrdering Facility: [facility] Address: [address] [place] [address] Performed By: #### 5 7021-8 ####[facility] LABCLIA [id number] [place] [address] Platelets (Bld) [#/Vol] 227 10*3/uL Normal 150-400 [facility] Comment on above: Order Comment: Speci men Type: BLOOD SPECIMENOrdering Facility: [facility] Address: [address] [place] [address] Performed By: #### 5 7021-8 ####[facility] LABCLIA [id number] [place] [address] RBC (Bld) [#/Vol] 3.54 10*6/uL Low 4.20-6.00 [facility] Comment on above: Order Comment: Speci men Type: BLOOD SPECIMENOrdering Facility: [facility] Address: [address] [place] [address] Performed By: #### 5 7021-8 ####[facility] LABCLIA [id number] [place] [address] WBC (Bld) [#/Vol] 8.32 10*3/uL Normal 3.70-11.00 [facility] Comment on above: Order Comment: Speci men Type: BLOOD SPECIMENOrdering Facility: [facility] Address: [place] [address] Performed By: #### 5 7021-8 ####[facility] LABCLIA [id number] [place] [address] Basophils (Bld) [#/Vol] 0.07 10*3/uL <0.11 k/uL [facility] Basophils/100 WBC (Bld) 0.8 % [facility] Differential cell count method Nom (Bld) Auto [facility] Eosinophils (Bld) [#/Vol] 0.14 10*3/uL <0.46 k/uL [facility] Eosinophils/100 WBC (Bld) 1.7 % [facility] Erythrocyte distribution width (RBC) [Ratio] 17.3 % High 11.5 - 15.0 % [facility] Hematocrit (Bld) [Volume fraction] 35.2 % Low 39.0 - 51.0 % [facility] Hemoglobin (Bld) [Mass/Vol] 11.3 g/dL Low 13.0 - 17.0 g/dL [facility] Immature granulocytes (Bld) [#/Vol] 0.13 10*3/uL High <0.10 k/uL [facility] Immature granulocytes/100 WBC (Bld) 1.6 % [facility] Lymphocytes (Bld) [#/Vol] 1.09 10*3/uL 1.00 - 4.00 k/uL [facility] Lymphocytes/100 WBC (Bld) 13.1 % [facility] MCH (RBC) [Entitic mass] 31.9 pg 26.0 - 34.0 pg [facility] MCHC (RBC) [Mass/Vol] 32.1 g/dL 30.5 - 36.0 g/dL [facility] MCV (RBC) [Entitic vol] 99.4 fL 80.0 - 100.0 fL [facility] Monocytes (Bld) [#/Vol] 0.75 10*3/uL <0.87 k/uL [facility] Monocytes/100 WBC (Bld) 9.0 % [facility] Neutrophils (Bld) [#/Vol] 6.14 10*3/uL 1.45 - 7.50 k/uL [facility] Neutrophils/100 WBC (Bld) 73.8 % [facility] Nucleated RBC (Bld) [#/Vol] <0.01 k/uL [facility] Nucleated RBC/100 WBC (Bld) [Ratio] 0.0 /100 WBC [facility] Platelet mean volume (Bld) [Entitic vol] 10.0 fL 9.0 - 12.7 fL [facility] Platelets (Bld) [#/Vol] 227 10*3/uL 150 - 400 k/uL [facility] RBC (Bld) [#/Vol] 3.54 10*6/uL Low 4.20 - 6.0 0 m/uL [facility] WBC (Bld) [#/Vol] 8.32 10*3/uL 3.70 - 11.00 k/uL [facility] CEA SerPl-mCncon 04-16-2023 Carcinoembryonic Ag [Mass/Vol] 2.1 ng/mL Normal <=2.9 [facility] Comment on above: Order Comment: Speci men Type: BLOOD SPECIMENOrdering Facility: [facility] Address: [address] [place] [address] Result Comment: Carc inoembryonic antigen test is used as an aid in monitoring response to treatment or recurrence in patients with established colorectal, breast, lung, prostatic, pancreatic, and ovarian carcinomas. Clinical correlation is required.The Carcinoembryonic antigen test was performed using the Korina FTL SOLAR Unicel DXI paramagnetic particle chemiluminescent immunoassay method. Results obtained with different assay methods or kits cannot be used interchangeably. Performed By: #### 2 039-6 ####[facility] LABCLIA [id number] [facility] [id number] [place] CNOVSPon 04-16-2023 CNOVSP Normal [facility] Comprehensive metabolic 2000 panelon 04-16-2023 Albumin [Mass/Vol] 3.8 g/dL Low 3.9-4.9 [facility] Comment on above: Order Comment: Speci men Type: BLOOD SPECIMENOrdering Facility: [facility] Address: [address] [place], [place] [phone] Performed By: #### 2 4323-8 ####[facility] LABCLIA [id number] [place] [address] ALP [Catalytic activity/Vol] 88 U/L Normal 38-113 [facility] Comment on above: Order Comment: Speci men Type: BLOOD SPECIMENOrdering Facility: [facility] Address: [address] [address] Performed By: #### 2 4323-8 ####[facility] LABCLIA [id number] [place] [address] ALT [Catalytic activity/Vol] 11 U/L Normal 10-54 [facility] Comment on above: Order Comment: Speci men Type: BLOOD SPECIMENOrdering Facility: [facility] Address: [address] [place] [address] Performed By: #### 2 4323-8 ####[facility] LABCLIA [id number] [place] [address] Anion gap [Moles/Vol] 11 mmol/L Normal 9-18 [facility] Comment on above: Order Comment: Speci men Type: BLOOD SPECIMENOrdering Facility: [facility] Address: [address] [address] Performed By: #### 2 4323-8 ####[facility] LABCLIA [id number] [place] [address] AST [Catalytic activity/Vol] 16 U/L Normal 14-40 [facility] Comment on above: Order Comment: Speci men Type: BLOOD SPECIMENOrdering Facility: [facility] Address: [address] [address] Performed By: #### 2 4323-8 ####[facility] LABCLIA [id number] [place] [address] Bilirubin [Mass/Vol] 0.4 mg/dL Normal 0.2-1.3 [facility] Comment on above: Order Comment: Speci men Type: BLOOD SPECIMENOrdering Facility: [facility] Address: [address] [place] [address] Performed By: #### 2 4323-8 ####[facility] LABCLIA [id number] [place] [address] Calcium [Mass/Vol] 9.5 mg/dL Normal 8.5-10.2 [facility] Comment on above: Order Comment: Speci men Type: BLOOD SPECIMENOrdering Facility: [facility] Address: [address] [place] [address] Performed By: #### 2 4323-8 ####[facility] LABCLIA [id number] [place] [address] Chloride [Moles/Vol] 107 mmol/L High 97-105 [facility] Comment on above: Order Comment: Speci men Type: BLOOD SPECIMENOrdering Facility: [facility] Address: [address] [place] [address] Performed By: #### 2 4323-8 ####[facility] LABCLIA [id number] [place] [address] CO2 [Moles/Vol] 25 mmol/L Normal 22-30 [facility] Comment on above: Order Comment: Speci men Type: BLOOD SPECIMENOrdering Facility: [facility] Address: [address] [place] [address] Performed By: #### 2 4323-8 ####[facility] LABCLIA [id number] [place] [address] Creatinine [Mass/Vol] 1.10 mg/dL Normal 0.73-1.22 [facility] Comment on above: Order Comment: Speci men Type: BLOOD SPECIMENOrdering Facility: [facility] Address: [address] [place] [address] Performed By: #### 2 4323-8 ####[facility] LABCLIA [id number] [place] [address] ESTIMATED GLOMERULAR FILTRATION RATE 72 mL/min/1.73m??? Normal >=60 [facility] Comment on above: Order Comment: Speci men Type: BLOOD SPECIMENOrdering Facility: [facility] Address: [address] [phone] Result Comment: Rebekah mated Glomerular Filtration Rate [...] actual GFR. Performed By: #### 2 4323-8 ####[facility] LABCLIA [id number] [place] [address] Glucose [Mass/Vol] 126 mg/dL High 74-99 [facility] Comment on above: Order Comment: Nazario brooks Type: BLOOD SPECIMENOrdering Facility: [facility] Address: [address] [place] [address] Result Comment: The [place] Diabetes Association (ADA) provides guidance for cutoff [...] Standards of Medical Care in Diabetes 2016, [place] [employer]. Diabetes Care. 2016.39(Suppl 1). Performed By: #### 2 4323-8 ####[facility] LABIA [id number] [place] [address] Potassium [Moles/Vol] 3.2 mmol/L Low 3.7-5.1 [facility] Comment on above: Order Comment: Nazario brooks Type: BLOOD SPECIMENOrdering Facility: [facility] Address: [address] [phone] Performed By: #### 2 4323-8 ####[facility] LABCLIA [id number] [place] [address] Protein [Mass/Vol] 6.2 g/dL Low 6.3-8.0 [facility] Comment on above: Order Comment: Speci men Type: BLOOD SPECIMENOrdering Facility: [facility] Address: [address] [place] [address] Performed By: #### 2 4323-8 ####[facility] LABCLIA [id number] [place] [address] Sodium [Moles/Vol] 143 mmol/L Normal 136-144 [facility] Comment on above: Order Comment: Speci men Type: BLOOD SPECIMENOrdering Facility: [facility] Address: [address] [place] [address] Performed By: #### 2 4323-8 ####[facility] LABCLIA [id number] [place] [address] Urea nitrogen [Mass/Vol] 22 mg/dL Normal 9-24 [facility] Comment on above: Order Comment: Speci men Type: BLOOD SPECIMENOrdering Facility: [facility] Address: [address] [place] [address] Performed By: #### 2 4323-8 ####[facility] LABCLIA [id number] [place] [address] Albumin [Mass/Vol] 3.8 g/dL Low 3.9 - 4.9 g/dL [facility] ALP [Catalytic activity/Vol] 88 U/L 38 - 113 U/L [facility] ALT [Catalytic activity/Vol] 11 U/L 10 - 54 U/L [facility] Anion gap [Moles/Vol] 11 mmol/L 9 - 18 mmol/L [facility] AST [Catalytic activity/Vol] 16 U/L 14 - 40 U/L [facility] Bilirubin [Mass/Vol] 0.4 mg/dL 0.2 - 1 .3 mg/dL [facility] Calcium [Mass/Vol] 9.5 mg/dL 8.5 - 10. 2 mg/dL [facility] Chloride [Moles/Vol] 107 mmol/L High 97 - 10 5 mmol/L [facility] CO2 [Moles/Vol] 25 mmol/L 22 - 30 mmol/L [facility] Creatinine [Mass/Vol] 1.10 mg/dL 0.73 - 1.22 mg/dL [facility] Estimated Glomerular Filtration Rate 72 mL/min/1.73m >=60 mL/min/1.73 m [facility] Glucose [Mass/Vol] 126 mg/dL High 74 - 99 mg/dL [facility] Potassium [Moles/Vol] 3.2 mmol/L Low 3.7 - 5.1 mmol/L [facility] Protein [Mass/Vol] 6.2 g/dL Low 6.3 - 8.0 g/dL [facility] Sodium [Moles/Vol] 143 mmol/L 136 - 144 mmol/L [facility] Urea nitrogen [Mass/Vol] 22 mg/dL 9 - 24 mg/dL [facility] XR cerv spine AP/LAT/FLX/EXT on 04-11-2023 XR cerv spine AP/LAT/FLX/EXT [place] [address] XRay Report Signed Patient: Mervat Damon MR#: [id number] : 1950 Acct:[id number] Age/Sex: 72 / M ADM Date: 04/11/23 Loc: XD Room: Type: [facility] Attending Dr: Valencia ONEAL Copies to: JM Godoy Ordering Provider: JM Godoy Date of Service: 04/11/23 XR/XR hips BI 4V adult: M54.12 ([id number]) XR/XR cerv spine AP/LAT/FLX/EXT: M54.12 CLINICAL HISTORY: [...] Viola Santiago M.D.04/11/2023 11:02 AM Dictation Location: [address] [address] Transcribed By: [facility] 04/11/23 1102 Dictated By: Viola Santiago MD 04/11/23 1054 Signed By: 04/11/23 1102 [facility] SURGICAL PATHOLOGYon 023 Case Report Surgical Pathology Report Case: [id number] Authorizing Provider: Deborah Norman MD Collected: 04/09/2023 01:00 PM Ordering Location: Procedures Received: 04/09/2023 02:35 PM Pathologist: Aries Lynch MD Specimen: ANAL CANAL BIOPSY, polyp [facility] FINAL DIAGNOSIS A. Anal canal, polyp , biopsy: - Squamous mucosa polyp. [facility] Gross Description A. ANAL CANAL BIOPSY Received in formalin is one santos-martínez polypoid segment of tissue measuring 0.3 x 0.3 x 0.2 cm. No stalk is present. The line of resection is noted. The specimen is not sectioned and totally submitted in one cassette. Gross examination performed at [facility], [address] [facility] [address] J 04/09/2023 7:48 PM [facility] Performing Lab Diagnostic interpretation performed at [facility], [address] [facility] [address] CLIA# [id number] Bank Teller: Aries Lynch M.D. [facility] ANES POSTPROC EVALon 023 ANES POSTPROC EVAL HNO ID: [id number] Author: Deborah Gomez MD Service: Anesthesiology Author [...] April 09, 2023 TIME: 2:09 PM CSN: [id number] [facility] ANES PRE-OPon 04-09-2023 ANES PRE-OP HNO ID: [id number] Author: Deborah Gomez MD Service: Anesthesiology Author [...] and consent discussed: yes. Patient / Responsible Alliance Party agrees to proceed: yes Patient / [...] information obtained (more content not included)... Normal [facility] COLONOSCOPY DIAGNOSTICon [facility] Colonoscopyon 04-09-2023 Colonoscopy [facility] Gastrointestinal Endoscopy Patient Name: Mervat Damon Procedure Date: 04/09/2023 12:15 PM Date of : 1950 Admit Type: Outpatient Age: 72 Room: [place] [address] Gender: Male Note Status: Finalized Attending MD: [...] the patient. Procedure Code(s): --- Professional --- 03040, Colonoscopy, flexible; with removal of tumor(s), polyp(s), or other lesion(s) by snare technique CPT copyright 2020 [employer]. All rights reserved. The codes documented in this report are preliminary and upon security officer review may be revised to meet current [...] Loss: Estimated blood loss was minimal. Normal [facility] HISTORY PHYSICALon 3 HISTORY PHYSICAL HNO ID: [id number] Author: Tova Orlando MD Service: Colorectal Author [...] DATE: April 09, 2023 TIME: 12:18 PM [facility] SURGICAL PATHOLOGYon 023 CASE REPORT [facility] Comment on above: Order Comment: Speci men Type: TISSUE SPECIMENOrdering Facility: [facility] Address: [address] [place] [address] Result Comment: Surg ica Pathology Report Case: [id number] Authorizing Provider: Deborah Norman MD Collected: 04/09/2023 01:00 PM Ordering Location: Procedures Received: 04/09/2023 02:35 PM Pathologist: Aries Lynch MD Specimen: ANAL CANAL BIOPSY, polyp Performed By: #### S ####[facility]ORY[facility] [id number] [address] LABIA [id number] [address] FINAL DIAGNOSIS Normal [facility] ital Comment on above: Order Comment: Speci men Type: TISSUE SPECIMENOrdering Facility: [facility] Address: [address] [address] Result Comment: A. A nal canal, polyp, biopsy: - Squamous mucosa polyp. Performed By: #### S ####[facility] [id number] [address] LABCLIA [id number] [address] [place] FINAL PERFORMING LAB Normal [facility] Comment on above: Order Comment: Speci men Type: TISSUE SPECIMENOrdering Facility: [facility] Address: [address] [address] Result Comment: Diag nostic interpretation performed at [facility], [address] [address] CLIA# [id number] Bank Teller: Aries Lynch M.D. Performed By: #### S ####[facility]ATORYCLIA [id number] [address] LABCLIA [id number] [address] GROSS DESCRIPTION Normal [facility] Comment on above: Order Comment: Speci men Type: TISSUE SPECIMENOrdering Facility: [facility] Address: [address] [address] Result Comment: A. A NAL CANAL BIOPSY Received in formalin is one santos-martínez polypoid segment of tissue measuring 0.3 x 0.3 x 0.2 cm. No stalk is present. The line of resection is noted. The specimen is not sectioned and totally submitted in one cassette. Gross examination performed at [facility], [facility] [place] [address] JT 04/09/2023 7:48 PM Performed By: #### S ####[facility] [id number] [address] LABCLIA [id number] [place] [address] [place] Family Medicine Office/Clini c Noteon 04-02-2023 Family Medicine Office/Clinic Note HPI Staff Littlejohn is a 72 year old male who presents with C/O neck pain. This has been a concern for about 3 weeks. Reports he was initially evaluated at [facility] ER on 03/18/23, The patient presented with [...] prescription for Zithromax for pneumonia. Will give [place] and Flexeril for his muscle spasm/strain. He [...] 100 tab(s), Refills(s) 3, Pharmacy: [facility] #[id number], 188, cm, 04/02/23 10:50:00 EDT, Height/Length Dosing, 100, kg, 04/02/23 10:50:00 EDT, Weight Dosing 2. RA - Rheumatoid arthritis (M06.9: Rheumatoid arthritis, unspecified) see #1 Ordered: predniSONE, 5 mg = 1 tab(s), Oral, Daily, start after taper, # 100 tab(s), Refills(s) 3, Pharmacy: [facility] #[id number], 188, cm, 04/02/23 10:50:00 EDT, Height/Length Dosing, 100, kg, 04/02/23 10:50:00 EDT, Weight Dosing 3. Non-ischemic cardiomyopathy (I42.8: Other cardiomyopathies) medically managed Orders: acetaminophen-hydrocodo ne, 1 tab(s), Oral, q6hr as needed for pain, 10 tab(s), Refill(s) 0, [facility] #[id number], 188, cm, 04/02/23 10:50:00 EDT, Height/Length Dosing, 100, kg, 04/02/23 10:50:00 EDT, Weight Dosing methocarbamol, 500 mg = 1 tab(s), Oral, QID, X 7 day(s), # 28 tab(s), Refills(s) 0, Pharmacy: [facility] #[id number], 188, rah, 04/02/23 10:50:00 EDT, Height/Length Dosing, 100, kg, 04/02/23 10:50:00 EDT, Weight Dosing predniSONE, See Instructions, Take 5 tabs po daily x 3 days then Take 4 tabs daily x 3 days then Take 3 tabs daily x 3 days Take 2 tabs daily x 3 days Take 1 tab daily x 3 days, # 45 tab(s), Refills(s) 0, [id number], 188, rah, 10/24/22 10:33... predniSONE, 0 = 1 -, Oral, As Directed, Take 5 tabs by mouth daily x3 days, 4 daily x3 days, 3 daily x3 (more content not included)... [facility] Comment on above: Result Comment: Elec tronically Signed By: Lorenzo OLSON DO\.br\Date and Time Signed: 04/02/23 11:24 EDT [facility] 03-26-2023 [facility] Consultation Noteon 03-21-20 Consultation Note [id number] D:127 [facility] 03-20-2023 [facility] Normal [facility] CBC W Auto Differential pane l (Bld)on 03-19-2023 Basophils (Bld) [#/Vol] 0.03 10*3/uL Normal <0.11 [facility] Comment on above: Order Comment: Speci men Type: BLOOD SPECIMENOrdering Facility: [facility] Address: [address] [place] [address] Performed By: #### 5 7021-8 ####[facility] LABCLIA [id number] [place] [address] Basophils/100 WBC (Bld) 0.4 % Normal [facility] Comment on above: Order Comment: Speci men Type: BLOOD SPECIMENOrdering Facility: [facility] Address: [address] [place] [address] Performed By: #### 5 7021-8 ####[facility] LABCLIA [id number] [place] [address] Differential cell count method Nom (Bld) Auto Normal [facility] Comment on above: Order Comment: Speci men Type: BLOOD SPECIMENOrdering Facility: [facility] Address: [address] [address] Performed By: #### 5 7021-8 ####[facility] LABIA [id number] [place] [address] Eosinophils (Bld) [#/Vol] 0.23 10*3/uL Normal <0.46 [facility] Comment on above: Order Comment: Speci men Type: BLOOD SPECIMENOrdering Facility: [facility] Address: [address] [place] [address] Performed By: #### 5 7021-8 ####[facility] LABIA [id number] [address] [address] Eosinophils/100 WBC (Bld) 2.8 % Normal [facility] Comment on above: Order Comment: Speci men Type: BLOOD SPECIMENOrdering Facility: [facility] Address: [address] [place] [address] Performed By: #### 5 7021-8 ####[facility] LABCLIA [id number] [place] [address] Erythrocyte distribution width (RBC) [Ratio] 16.1 % High 11.5-15.0 [facility] Comment on above: Order Comment: Speci men Type: BLOOD SPECIMENOrdering Facility: [facility] Address: [address] [place] [address] Performed By: #### 5 7021-8 ####[facility] LABCLIA [id number] [place] [address] Hematocrit (Bld) [Volume fraction] 35.0 % Low 39.0-51.0 [facility] Comment on above: Order Comment: Speci men Type: BLOOD SPECIMENOrdering Facility: [facility] Address: [address] [place] [address] Performed By: #### 5 7021-8 ####[facility] LABCLIA [id number] [place] [address] Hemoglobin (Bld) [Mass/Vol] 11.6 g/dL Low 13.0-17.0 [facility] Comment on above: Order Comment: Speci men Type: BLOOD SPECIMENOrdering Facility: [facility] Address: [address] [place] [address] Performed By: #### 5 7021-8 ####[facility] LABCLIA [id number] [place] [address] Immature granulocytes (Bld) [#/Vol] 0.03 10*3/uL Normal <0.10 [facility] Comment on above: Order Comment: Speci men Type: BLOOD SPECIMENOrdering Facility: [facility] Address: [address] [place] [address] Performed By: #### 5 7021-8 ####[facility] LABCLIA [id number] [place] [address] Immature granulocytes/100 WBC (Bld) 0.4 % Normal [facility] Comment on above: Order Comment: Speci men Type: BLOOD SPECIMENOrdering Facility: [facility] Address: [address] [place] [address] Performed By: #### 5 7021-8 ####[facility] LABCLIA [id number] [place] [address] Lymphocytes (Bld) [#/Vol] 0.65 10*3/uL Low 1.00-4.00 [facility] Comment on above: Order Comment: Speci men Type: BLOOD SPECIMENOrdering Facility: [facility] Address: [address] [address] Performed By: #### 5 7021-8 ####[facility] LABCLIA [id number] [place] [address] Lymphocytes/100 WBC (Bld) 7.9 % Normal [facility] Comment on above: Order Comment: Speci men Type: BLOOD SPECIMENOrdering Facility: [facility] Address: [address] [place] [address] Performed By: #### 5 7021-8 ####[facility] LABCLIA [id number] [place] [address] MCH (RBC) [Entitic mass] 33.5 pg Normal 26.0-34.0 [facility] Comment on above: Order Comment: Speci men Type: BLOOD SPECIMENOrdering Facility: [facility] Address: [address] [place] [address] Performed By: #### 5 7021-8 ####[facility] LABIA [id number] [place] [address] MCHC (RBC) [Mass/Vol] 33.1 g/dL Normal 30.5-36.0 [facility] Comment on above: Order Comment: Speci men Type: BLOOD SPECIMENOrdering Facility: [facility] Address: [address] [place] [address] Performed By: #### 5 7021-8 ####[facility] LABCLIA [id number] [place] [address] MCV (RBC) [Entitic vol] 101.2 fL High 80.0-100.0 [facility] Comment on above: Order Comment: Speci men Type: BLOOD SPECIMENOrdering Facility: [facility] Address: [address] [place] [address] Performed By: #### 5 7021-8 ####[facility] LABIA [id number] [place] [address] Monocytes (Bld) [#/Vol] 1.41 10*3/uL High <0.87 [facility] Comment on above: Order Comment: Speci men Type: BLOOD SPECIMENOrdering Facility: [facility] Address: [address] [address] Performed By: #### 5 7021-8 ####[facility] LABCLIA [id number] [place] [address] Monocytes/100 WBC (Bld) 17.2 % Normal [facility] Comment on above: Order Comment: Speci men Type: BLOOD SPECIMENOrdering Facility: [facility] Address: [address] [address] Performed By: #### 5 7021-8 ####[facility] LABCLIA [id number] [place] [address] Neutrophils (Bld) [#/Vol] 5.84 10*3/uL Normal 1.45-7.50 [facility] Comment on above: Order Comment: Speci men Type: BLOOD SPECIMENOrdering Facility: [facility] Address: [address] [address] Performed By: #### 5 7021-8 ####[facility] LABCLIA [id number] [place] [address] Neutrophils/100 WBC (Bld) 71.3 % Normal [facility] Comment on above: Order Comment: Speci men Type: BLOOD SPECIMENOrdering Facility: [facility] Address: [address] [address] Performed By: #### 5 7021-8 ####[facility] LABCLIA [id number] [place] [address] Nucleated RBC (Bld) [#/Vol] 10*3/uL Normal <0.01 [facility] Comment on above: Order Comment: Speci men Type: BLOOD SPECIMENOrdering Facility: [facility] Address: [address] [place] [address] Performed By: #### 5 7021-8 ####[facility] LABCLIA [id number] [place] [address] Nucleated RBC/100 WBC (Bld) [Ratio] 0.0 /100 WBC Normal [facility] Comment on above: Order Comment: Speci men Type: BLOOD SPECIMENOrdering Facility: [facility] Address: [address] [place] [address] Performed By: #### 5 7021-8 ####[facility] LABCLIA [id number] [place] [address] Platelet mean volume (Bld) [Entitic vol] 9.4 fL Normal 9.0-12.7 [facility] Comment on above: Order Comment: Speci men Type: BLOOD SPECIMENOrdering Facility: [facility] Address: [address] [place] [address] Performed By: #### 5 7021-8 ####[facility] LABIA [id number] [place] [address] Platelets (Bld) [#/Vol] 171 10*3/uL Normal 150-400 [facility] Comment on above: Order Comment: Speci men Type: BLOOD SPECIMENOrdering Facility: [facility] Address: [address] [place] [address] Performed By: #### 5 7021-8 ####[facility] LABIA [id number] [place] [address] RBC (Bld) [#/Vol] 3.46 10*6/uL Low 4.20-6.00 [facility] Comment on above: Order Comment: Speci men Type: BLOOD SPECIMENOrdering Facility: [facility] Address: [address] [place] [address] Performed By: #### 5 7021-8 ####[facility] LABCLIA [id number] [place] [address] WBC (Bld) [#/Vol] 8.19 10*3/uL Normal 3.70-11.00 [facility] Comment on above: Order Comment: Speci men Type: BLOOD SPECIMENOrdering Facility: [facility] Address: [place] [address] Performed By: #### 5 7021-8 ####[facility] LABCLIA [id number] [place] [address] Basophils (Bld) [#/Vol] 0.03 10*3/uL <0.11 k/uL [facility] Basophils/100 WBC (Bld) 0.4 % [facility] Differential cell count method Nom (Bld) Auto [facility] Eosinophils (Bld) [#/Vol] 0.23 10*3/uL <0.46 k/uL [facility] Eosinophils/100 WBC (Bld) 2.8 % [facility] Erythrocyte distribution width (RBC) [Ratio] 16.1 % High 11.5 - 15.0 % [facility] Hematocrit (Bld) [Volume fraction] 35.0 % Low 39.0 - 51.0 % [facility] Hemoglobin (Bld) [Mass/Vol] 11.6 g/dL Low 13.0 - 17.0 g/dL [facility] Immature granulocytes (Bld) [#/Vol] 0.03 10*3/uL <0.10 k/uL [facility] Immature granulocytes/100 WBC (Bld) 0.4 % [facility] Lymphocytes (Bld) [#/Vol] 0.65 10*3/uL Low 1.00 - 4.00 k/uL [facility] Lymphocytes/100 WBC (Bld) 7.9 % [facility] MCH (RBC) [Entitic mass] 33.5 pg 26.0 - 34.0 pg [facility] MCHC (RBC) [Mass/Vol] 33.1 g/dL 30.5 - 36.0 g/dL [facility] MCV (RBC) [Entitic vol] 101.2 fL High 80.0 - 100.0 fL [facility] Monocytes (Bld) [#/Vol] 1.41 10*3/uL High <0.87 k/uL [facility] Monocytes/100 WBC (Bld) 17.2 % [facility] Neutrophils (Bld) [#/Vol] 5.84 10*3/uL 1.45 - 7.50 k/uL [facility] Neutrophils/100 WBC (Bld) 71.3 % [facility] Nucleated RBC (Bld) [#/Vol] <0.01 k/uL [facility] Nucleated RBC/100 WBC (Bld) [Ratio] 0.0 /100 WBC [facility] Platelet mean volume (Bld) [Entitic vol] 9.4 fL 9.0 - 12.7 fL [facility] Platelets (Bld) [#/Vol] 171 10*3/uL 150 - 400 k/uL [facility] RBC (Bld) [#/Vol] 3.46 10*6/uL Low 4.20 - 6.0 0 m/uL [facility] WBC (Bld) [#/Vol] 8.19 10*3/uL 3.70 - 11.00 k/uL [facility] CEA SerPl-mCncon 03-19-2023 Carcinoembryonic Ag [Mass/Vol] 2.0 ng/mL Normal <=2.9 [facility] Comment on above: Order Comment: Speci men Type: BLOOD SPECIMENOrdering Facility: [facility] Address: [address] [place] [address] Result Comment: Carc inoembryonic antigen test is [...] used interchangeably. Performed By: #### 2 039-6 ####[facility] LABCLIA [id number] [place] [address] [place] CNOVSPon 03-19-2023 CNOVSP Normal [facility] Comprehensive metabolic 2000 panelon 03-19-2023 Albumin [Mass/Vol] 3.6 g/dL Low 3.9 - 4.9 g/dL [facility] ALP [Catalytic activity/Vol] 98 U/L 38 - 113 U/L [facility] ALT [Catalytic activity/Vol] 10 U/L 10 - 54 U/L [facility] Anion gap [Moles/Vol] 10 mmol/L 9 - 18 mmol/L [facility] AST [Catalytic activity/Vol] 18 U/L 14 - 40 U/L [facility] Bilirubin [Mass/Vol] 0.5 mg/dL 0.2 - 1 .3 mg/dL [facility] Calcium [Mass/Vol] 9.3 mg/dL 8.5 - 10. 2 mg/dL [facility] Chloride [Moles/Vol] 102 mmol/L 97 - 10 5 mmol/L [facility] CO2 [Moles/Vol] 26 mmol/L 22 - 30 mmol/L [facility] Creatinine [Mass/Vol] 1.18 mg/dL 0.73 - 1.22 mg/dL [facility] Estimated Glomerular Filtration Rate 66 mL/min/1.73m >=60 mL/min/1.73 m [facility] Glucose [Mass/Vol] 123 mg/dL High 74 - 99 mg/dL [facility] Potassium [Moles/Vol] 3.6 mmol/L Low 3.7 - 5.1 mmol/L [facility] Protein [Mass/Vol] 6.2 g/dL Low 6.3 - 8.0 g/dL [facility] Sodium [Moles/Vol] 138 mmol/L 136 - 144 mmol/L [facility] Urea nitrogen [Mass/Vol] 20 mg/dL 9 - 24 mg/dL [facility] Albumin [Mass/Vol] 3.6 g/dL Low 3.9-4.9 [facility] Comment on above: Order Comment: Speci men Type: BLOOD SPECIMENOrdering Facility: [facility] Address: [address] [place] [address] Performed By: #### 2 4323-8 ####[facility] LABCLIA [id number] [place] [address] ALP [Catalytic activity/Vol] 98 U/L Normal 38-113 [facility] Comment on above: Order Comment: Speci men Type: BLOOD SPECIMENOrdering Facility: [facility] Address: [address] [place] [address] Performed By: #### 2 4323-8 ####[facility] LABCLIA [id number] [place] [address] ALT [Catalytic activity/Vol] 10 U/L Normal 10-54 [facility] Comment on above: Order Comment: Speci men Type: BLOOD SPECIMENOrdering Facility: [facility] Address: [address] [place] [address] Performed By: #### 2 4323-8 ####[facility] LABCLIA [id number] [place] [address] Anion gap [Moles/Vol] 10 mmol/L Normal 9-18 [facility] Comment on above: Order Comment: Speci men Type: BLOOD SPECIMENOrdering Facility: [facility] Address: [address] [place] [address] Performed By: #### 2 4323-8 ####[facility] LABCLIA [id number] [place] [address] AST [Catalytic activity/Vol] 18 U/L Normal 14-40 [facility] Comment on above: Order Comment: Speci men Type: BLOOD SPECIMENOrdering Facility: [facility] Address: [address] [place] [address] Performed By: #### 2 4323-8 ####[facility] LABCLIA [id number] [place] [address] Bilirubin [Mass/Vol] 0.5 mg/dL Normal 0.2-1.3 [facility] Comment on above: Order Comment: Speci men Type: BLOOD SPECIMENOrdering Facility: [facility] Address: [address] [place] [address] Performed By: #### 2 4323-8 ####[facility] LABCLIA [id number] [place] [address] Calcium [Mass/Vol] 9.3 mg/dL Normal 8.5-10.2 [facility] Comment on above: Order Comment: Speci men Type: BLOOD SPECIMENOrdering Facility: [facility] Address: [address] [place] [address] Performed By: #### 2 4323-8 ####[facility] LABCLIA [id number] [place] [address] Chloride [Moles/Vol] 102 mmol/L Normal 97-105 [facility] Comment on above: Order Comment: Speci men Type: BLOOD SPECIMENOrdering Facility: [facility] Address: [address] [place] [address] Performed By: #### 2 4323-8 ####[facility] LABCLIA [id number] [place] [address] CO2 [Moles/Vol] 26 mmol/L Normal 22-30 [facility] Comment on above: Order Comment: Speci men Type: BLOOD SPECIMENOrdering Facility: [facility] Address: [address] [place] [address] Performed By: #### 2 4323-8 ####[facility] LABCLIA [id number] [place] [address] Creatinine [Mass/Vol] 1.18 mg/dL Normal 0.73-1.22 [facility] Comment on above: Order Comment: Speci men Type: BLOOD SPECIMENOrdering Facility: [facility] Address: [address] [place] [address] Performed By: #### 2 4323-8 ####[facility] LABCLIA [id number] [place] [address] ESTIMATED GLOMERULAR FILTRATION RATE 66 mL/min/1.73m??? Normal >=60 [facility] Comment on above: Order Comment: Speci men Type: BLOOD SPECIMENOrdering Facility: [facility] Address: [address] [place] [address] Result Comment: Rebekah mated Glomerular Filtration Rate [...] actual GFR. Performed By: #### 2 4323-8 ####[facility] LABCLIA [id number] [place] [address] Glucose [Mass/Vol] 123 mg/dL High 74-99 [facility] Comment on above: Order Comment: Speci men Type: BLOOD SPECIMENOrdering Facility: [facility] Address: [address] [address] Result Comment: The [employer] (ADA) provides guidance for cutoff [...] Standards of Medical Care in Diabetes 2016, [employer]. Diabetes Care. 2016.39(Suppl 1). Performed By: #### 2 4323-8 ####[facility] LABCLIA [id number] [place] [address] Potassium [Moles/Vol] 3.6 mmol/L Low 3.7-5.1 [facility] Comment on above: Order Comment: Speci men Type: BLOOD SPECIMENOrdering Facility: [facility] Address: [address] [id number] Performed By: #### 2 4323-8 ####[facility] LABCLIA [id number] [place] [address] Protein [Mass/Vol] 6.2 g/dL Low 6.3-8.0 [facility] Comment on above: Order Comment: Speci men Type: BLOOD SPECIMENOrdering Facility: [facility] Address: [address] [address] Performed By: #### 2 4323-8 ####[facility] LABCLIA [id number] [place] [address] Sodium [Moles/Vol] 138 mmol/L Normal 136-144 [facility] Comment on above: Order Comment: Speci men Type: BLOOD SPECIMENOrdering Facility: [facility] Address: [address] [place] [address] Performed By: #### 2 4323-8 ####[facility] LABCLIA [id number] [place] [address] Urea nitrogen [Mass/Vol] 20 mg/dL Normal 9-24 [facility] Comment on above: Order Comment: Speci men Type: BLOOD SPECIMENOrdering Facility: [facility] Address: [address] [place] [address] Performed By: #### 2 4323-8 ####[facility] LABCLIA [id number] [place] [address] Consent for Treatmenton 02-19 Consent for Treatment [id number]#1.00C D:127 Normal [facility] Discharge Instructionson Discharge Instructions [id number]#[id number] D:127 Normal [facility] ED Clinical Summaryon 2022 ED Clinical Summary (Inserted Image. Lary ble to display) [address] [address] ED Clinical Summary Person Information Name: MERVAT DAMON [place] Age: 72 Years : 1950 Sex: Male Language: French PCP: Lorenzo OLSON DO Marital Status: Phone: [phone] Visit Id: Visit Reason: Cough; Neck pain; [...] 03/18/2023 13:40:25 03/18/2023 13:40:25 03/18/2023 13:40:25 ADDRESS: [address] [place] [phone] PHYS DOC NOTES: MEDICAL INFORMATION: Prescriptions Given: New Medications [facility] #[id number], [address] [place], [place] [id number], [phone] azithromycin (Zithromax 250 mg Tab) 1 Packets By Mouth As Directed for 5 Days. as directed on package labeling. Refills: 0. cyclobenzaprine (cyclobenzaprine 10 mg Tab) 1 Tablets By Mouth 3 times a day as needed for spasm. Refills: 0. Medications to Continue Taking That Have Changed [facility] #[id number], [address] [place], [place] [id number], [phone] START: acetaminophen-hydrocodo ne (Columbus 325 mg-5 mg oral tablet) 1 Tablets [...] Follow up: With: Address: When: Lorenzo OLSON [facility] [address] [place], [place] [id number] ULTRA Testing (1) In 3 days 03/21/2023 Comments: Return to the emergency room if your shortness of breath gets worse, your neck pain gets worse or any new symptoms. Be aware that both Columbus and Flexeril can cause drowsiness. DIAGNOSIS: 1:Pneumonia; 2:Neck muscle spasm Normal [facility] ED Note-Physicianon 03-18-20 ED Note-Physician Basic Information Time Seen: Yuridia Houser M.D. 03/18/2023 11:43 Chief Complaint has had cough [...] and Complexity of Problems Differential Diagnosis: [] [facility] Data External documents reviewed: [] My [...] prescription for Zithromax for pneumonia. Will give Columbus and Flexeril for his muscle spasm/strain. He [...] needed for pain, 10 tab(s), Refill(s) 0, [facility] #[id number], 188, cm, 03/18/23 10:50:00 EDT, Height/Length Dosing, 111, kg, 03/18/23 10:50:00 EDT, Weight Dosing Orders: acetaminophen-oxycodone , 1 tab(s), Tab, Oral, Once, Stop date 03/18/23 11:55:00 EDT, STAT, Start date 03/18/23 11:55:00 EDT azithromycin, = 1 packet(s), Oral, As Directed, as directed on package labeling, X 5 day(s), # 6 tab(s), Refills(s) 0, [facility]acy: [facility] #[id number], 188, cm, 03/18/23 10:50:00 EDT, Height/Length Dosing, 111, kg, 03/18/23 10:50:00 EDT, Weight Dosing cyclobenzaprine, 10 mg = 1 tab(s), Oral, TID, PRN for spasm, # 20 tab(s), Refills(s) 0, Pharmacy: [facility] #[id number], 188, cm, 03/18/23 10:50:00 EDT, Height/Length Dosing, [...] 10 mg= 1 tab(s), Oral, TID, PRN Columbus (more content not included)... Normal [facility] Comment on above: Result Comment: Elec [...] these instructions at home: Medicines ? Take tydk-jdl-vpivunk and prescription medicines only as told by [...] (more content not included)... Normal [facility] ED Patient Summaryon 023 ED Patient Summary (Inserted Image. Lary ble to display) [address] [address] Patient Discharge Instructions Person Information Name: MERVAT DAMON Age: 72 Years Arrival Date: 03/18/2023 10:24:33 Discharge Diagnosis: 1:Pneumonia; 2:Neck muscle spasm Primary Care Physician: Lorenzo OLSON DO Provider Information Primary Provider: Yuridia Houser M.D. [employer] Advisor:None The exam and treatment you received in the Emergency Department were for an urgent problem and are not intended as complete care. It is important that you follow up with a doctor, nurse practitioner, or physician?s laboratory chemical assistant for ongoing care. If your symptoms [...] Address: When: Lorenzo OLSON [address] [place] [address] Business (1) In 3 days 03/21/2023 Comments: Return to the emergency room if your shortness of breath gets worse, your neck pain gets worse or any new symptoms. Be aware that both Columbus and Flexeril can cause drowsiness. In the event that this physician does not participate in your insurance network, please consult with your insurance company to find a nearby participating provider. Patient Education Materials: Muscle Cramps and Spasms; Community-Acquired Pneumonia, Adult A MESSAGE TO ALL PATIENTS REGARDING OPIOIDS PRESCRIPTION OPIOIDS: WHAT YOU NEED TO KNOW Prescription opioids can be used to help relieve oyayzgoy-dl-ijyktr pain and are often prescribed following a [...] (more content not included)... Normal [facility] XR Chest 2 Viewson 3 XR [...] na DAP = na Normal [facility] XR Spine Cervical 4 or 5 [...] na DAP = na Normal [facility] CNOVon 03-13-2023 CNOV [facility]22 REFERRAL LAB 1 [facility] Normal [facility] Comment on above: Order Comment: Speci men Type: BLOOD SPECIMENOrdering Facility: [facility] Address: [address] [place] [address] Performed By: #### M ISC1 ####[facility] LABIA [id number] TEST 1 Common Hereditary Cancer Panel Normal [facility] Comment on above: Order Comment: Speci men Type: BLOOD SPECIMENOrdering Facility: [facility] Address: [address] [place] [address] Performed By: #### M ISC1 ####[facility] LABIA [id number] [address] TEST RESULTS 1 View results in Scan jesse Documents link when available. Normal [facility] Comment on above: Order Comment: Speci men Type: BLOOD SPECIMENOrdering Facility: [facility] Address: [address] [address] Performed By: #### M ISC1 ####[facility] LABCLIA [id number] [facility] [id number] [address] [place] CNPNon 03-07-2023 CNPN Normal [facility] Consultation Noteon 03-06-20 Consultation Note [id number]#1.00C D:127 Normal [facility] CBC W Auto Differential pane l (Bld)on 03-05-2023 Basophils (Bld) [#/Vol] 0.05 10*3/uL Normal <0.11 [facility] Comment on above: Order Comment: Speci men Type: BLOOD SPECIMENOrdering Facility: [facility] Address: [address] [address] Performed By: #### 5 7021-8 ####[facility] LABCLIA [id number] [place] [address] Basophils/100 WBC (Bld) 0.8 % Normal [facility] Comment on above: Order Comment: Speci men Type: BLOOD SPECIMENOrdering Facility: [facility] Address: [address] [address] Performed By: #### 5 7021-8 ####[facility] LABCLIA [id number] [place] [address] Differential cell count method Nom (Bld) Auto Normal [facility] Comment on above: Order Comment: Speci men Type: BLOOD SPECIMENOrdering Facility: [facility] Address: [address] [address] Performed By: #### 5 7021-8 ####[facility] LABCLIA [id number] [place] [address] Eosinophils (Bld) [#/Vol] 0.20 10*3/uL Normal <0.46 [facility] Comment on above: Order Comment: Speci men Type: BLOOD SPECIMENOrdering Facility: [facility] Address: [address] [address] Performed By: #### 5 7021-8 ####[facility] LABCLIA [id number] [place] [address] Eosinophils/100 WBC (Bld) 3.1 % Normal [facility] Comment on above: Order Comment: Speci men Type: BLOOD SPECIMENOrdering Facility: [facility] Address: [address] [place] [address] Performed By: #### 5 7021-8 ####[facility] LABCLIA [id number] [place] [address] Erythrocyte distribution width (RBC) [Ratio] 16.0 % High 11.5-15.0 [facility] Comment on above: Order Comment: Speci men Type: BLOOD SPECIMENOrdering Facility: [facility] Address: [address] [place] [address] Performed By: #### 5 7021-8 ####[facility] LABIA [id number] [place] [address] Hematocrit (Bld) [Volume fraction] 35.3 % Low 39.0-51.0 [facility] Comment on above: Order Comment: Speci men Type: BLOOD SPECIMENOrdering Facility: [facility] Address: [address] [place] [address] Performed By: #### 5 7021-8 ####[facility] LABCLIA [id number] [place] [address] Hemoglobin (Bld) [Mass/Vol] 11.7 g/dL Low 13.0-17.0 [facility] Comment on above: Order Comment: Speci men Type: BLOOD SPECIMENOrdering Facility: [facility] Address: [address] [place] [address] Performed By: #### 5 7021-8 ####[facility] LABCLIA [id number] [place] [address] Immature granulocytes (Bld) [#/Vol] 0.03 10*3/uL Normal <0.10 [facility] Comment on above: Order Comment: Speci men Type: BLOOD SPECIMENOrdering Facility: [facility] Address: [address] [place] [address] Performed By: #### 5 7021-8 ####[facility] LABCLIA [id number] [place] [address] Immature granulocytes/100 WBC (Bld) 0.5 % Normal [facility] Comment on above: Order Comment: Speci men Type: BLOOD SPECIMENOrdering Facility: [facility] Address: [address] [place] [address] Performed By: #### 5 7021-8 ####[facility] LABCLIA [id number] [place] [address] Lymphocytes (Bld) [#/Vol] 0.57 10*3/uL Low 1.00-4.00 [facility] Comment on above: Order Comment: Speci men Type: BLOOD SPECIMENOrdering Facility: [facility] Address: [address] [address] Performed By: #### 5 7021-8 ####[facility] LABIA [id number] [place] [address] Lymphocytes/100 WBC (Bld) 8.9 % Normal [facility] Comment on above: Order Comment: Speci men Type: BLOOD SPECIMENOrdering Facility: [facility] Address: [address] [place] [address] Performed By: #### 5 7021-8 ####[facility] LABCLIA [id number] [place] [address] MCH (RBC) [Entitic mass] 34.0 pg Normal 26.0-34.0 [facility] Comment on above: Order Comment: Speci men Type: BLOOD SPECIMENOrdering Facility: [facility] Address: [address] [place] [address] Performed By: #### 5 7021-8 ####[facility] LABCLIA [id number] [place] [address] MCHC (RBC) [Mass/Vol] 33.1 g/dL Normal 30.5-36.0 [facility] Comment on above: Order Comment: Speci men Type: BLOOD SPECIMENOrdering Facility: [facility] Address: [address] [place] [address] Performed By: #### 5 7021-8 ####[facility] LABIA [id number] [place] [address] MCV (RBC) [Entitic vol] 102.6 fL High 80.0-100.0 [facility] Comment on above: Order Comment: Speci men Type: BLOOD SPECIMENOrdering Facility: [facility] Address: [address] [place] [address] Performed By: #### 5 7021-8 ####[facility] [id number] [place] [address] Monocytes (Bld) [#/Vol] 0.95 10*3/uL High <0.87 [facility] Comment on above: Order Comment: Speci men Type: BLOOD SPECIMENOrdering Facility: [facility] Address: [address] [place] [address] Performed By: #### 5 7021-8 ####[facility] LABIA [id number] [place] [address] Monocytes/100 WBC (Bld) 14.9 % Normal [facility] Comment on above: Order Comment: Speci men Type: BLOOD SPECIMENOrdering Facility: [facility] Address: [address] [place] [address] Performed By: #### 5 7021-8 ####[facility] LABIA [id number] [place] [address] Neutrophils (Bld) [#/Vol] 4.57 10*3/uL Normal 1.45-7.50 [facility] Comment on above: Order Comment: Speci men Type: BLOOD SPECIMENOrdering Facility: [facility] Address: [address] [address] Performed By: #### 5 7021-8 ####[facility] LABCLIA [id number] [place] [address] Neutrophils/100 WBC (Bld) 71.8 % Normal [facility] Comment on above: Order Comment: Speci men Type: BLOOD SPECIMENOrdering Facility: [facility] Address: [address] [place] [address] Performed By: #### 5 7021-8 ####[facility] LABCLIA [id number] [place] [address] Nucleated RBC (Bld) [#/Vol] 10*3/uL Normal <0.01 [facility] Comment on above: Order Comment: Speci men Type: BLOOD SPECIMENOrdering Facility: [facility] Address: [address] [place] [address] Performed By: #### 5 7021-8 ####[facility] LABCLIA [id number] [place] [address] Nucleated RBC/100 WBC (Bld) [Ratio] 0.0 /100 WBC Normal [facility] Comment on above: Order Comment: Speci men Type: BLOOD SPECIMENOrdering Facility: [facility] Address: [address] [place] [address] Performed By: #### 5 7021-8 ####[facility] LABCLIA [id number] [place] [address] Platelet mean volume (Bld) [Entitic vol] 9.9 fL Normal 9.0-12.7 [facility] Comment on above: Order Comment: Speci men Type: BLOOD SPECIMENOrdering Facility: [facility] Address: [address] [place] [address] Performed By: #### 5 7021-8 ####[facility] LABCLIA [id number] [place] [address] Platelets (Bld) [#/Vol] 137 10*3/uL Low 150-400 [facility] Comment on above: Order Comment: Speci men Type: BLOOD SPECIMENOrdering Facility: [facility] Address: [address] [place] [address] Performed By: #### 5 7021-8 ####[facility] LABCLIA [id number] [place] [address] RBC (Bld) [#/Vol] 3.44 10*6/uL Low 4.20-6.00 [facility] Comment on above: Order Comment: Speci men Type: BLOOD SPECIMENOrdering Facility: [facility] Address: [address] [place] [address] Performed By: #### 5 7021-8 ####[facility] LABCLIA [id number] [place] [address] WBC (Bld) [#/Vol] 6.37 10*3/uL Normal 3.70-11.00 [facility] Comment on above: Order Comment: Speci men Type: BLOOD SPECIMENOrdering Facility: [facility] Address: [address] [place] [address] Performed By: #### 5 7021-8 ####[facility] LABCLIA [id number] [place] [address] [facility] Carcinoembryonic Ag [Mass/Vol] 2.1 ng/mL Normal <=2.9 [facility] Comment on above: Order Comment: Speci men Type: BLOOD SPECIMENOrdering Facility: [facility] Address: [address] [place] [address] Result Comment: Carc inoembryonic antigen test is used as an aid in monitoring response to treatment or recurrence in patients with established colorectal, breast, lung, prostatic, pancreatic, and ovarian carcinomas. Clinical correlation is required.The Carcinoembryonic antigen test was performed using the [employer] DXI paramagnetic particle chemiluminescent immunoassay method. Results obtained with different assay methods or kits cannot be used interchangeably. Performed By: #### 2 039-6 ####[facility] LABCLIA [id number] [facility]ITALShawna [facility]K [id number] [address] [place] CNOVSPon 03-05-2023 CNOVSP Normal [facility] Comprehensive metabolic 2000 panelon 03-05-2023 Albumin [Mass/Vol] 3.8 g/dL Low 3.9-4.9 [facility] Comment on above: Order Comment: Speci men Type: BLOOD SPECIMENOrdering Facility: [facility] Address: [address] [address] Performed By: #### 2 4323-8 ####[facility] LABIA [id number] [place] [address] ALP [Catalytic activity/Vol] 113 U/L Normal 38-113 [facility] Comment on above: Order Comment: Speci men Type: BLOOD SPECIMENOrdering Facility: [facility] Address: [address] [address] Performed By: #### 2 4323-8 ####[facility] LABIA [id number] [place] [address] ALT [Catalytic activity/Vol] 9 U/L Low 10-54 [facility] Comment on above: Order Comment: Speci men Type: BLOOD SPECIMENOrdering Facility: [facility] Address: [address] [address] Performed By: #### 2 4323-8 ####[facility] LABCLIA [id number] [place] [address] Anion gap [Moles/Vol] 9 mmol/L Normal 9-18 [facility] Comment on above: Order Comment: Speci men Type: BLOOD SPECIMENOrdering Facility: [facility] Address: [address] [address] Performed By: #### 2 4323-8 ####[facility] LABCLIA [id number] [place] [address] AST [Catalytic activity/Vol] 14 U/L Normal 14-40 [facility] Comment on above: Order Comment: Speci men Type: BLOOD SPECIMENOrdering Facility: [facility] Address: [address] [place] [address] Performed By: #### 2 4323-8 ####[facility] LABCLIA [id number] [place] [address] Bilirubin [Mass/Vol] 0.4 mg/dL Normal 0.2-1.3 [facility] Comment on above: Order Comment: Speci men Type: BLOOD SPECIMENOrdering Facility: [facility] Address: [address] [place] [address] Performed By: #### 2 4323-8 ####[facility] LABCLIA [id number] [place] [address] Calcium [Mass/Vol] 9.1 mg/dL Normal 8.5-10.2 [facility] Comment on above: Order Comment: Speci men Type: BLOOD SPECIMENOrdering Facility: [facility] Address: [address] [place] [address] Performed By: #### 2 4323-8 ####[facility] LABCLIA [id number] [place] [address] Chloride [Moles/Vol] 106 mmol/L High 97-105 [facility] Comment on above: Order Comment: Speci men Type: BLOOD SPECIMENOrdering Facility: [facility] Address: [address] [address] Performed By: #### 2 4323-8 ####[facility] LABCLIA [id number] [place] [address] CO2 [Moles/Vol] 27 mmol/L Normal 22-30 [facility] Comment on above: Order Comment: Speci men Type: BLOOD SPECIMENOrdering Facility: [facility] Address: [address] [place] [address] Performed By: #### 2 4323-8 ####[facility] LABCLIA [id number] [place] [address] Creatinine [Mass/Vol] 1.16 mg/dL Normal 0.73-1.22 [facility] Comment on above: Order Comment: Specamador brooks Type: BLOOD SPECIMENOrdering Facility: [facility] Address: [address] [place] [address] Performed By: #### 2 4323-8 ####[facility] LABCLIA [id number] [place] [address] ESTIMATED GLOMERULAR FILTRATION RATE 68 mL/min/1.73m??? Normal >=60 [facility] Comment on above: Order Comment: Isaii men Type: BLOOD SPECIMENOrdering Facility: [facility] Address: [address] [place] [address] Result Comment: Rebekah mated Glomerular Filtration Rate [...] actual GFR. Performed By: #### 2 4323-8 ####[facility] LABCLIA [id number] [place] [address] Glucose [Mass/Vol] 102 mg/dL High 74-99 [facility] Comment on above: Order Comment: Speci todd Type: BLOOD SPECIMENOrdering Facility: [facility] Address: [address] [place] [address] Result Comment: The [place] Diabetes Association (ADA) provides guidance for cutoff [...] Standards of Medical Care in Diabetes 2016, [place] Diabetes Association. Diabetes Care. 2016.39(Suppl 1). Performed By: #### 2 4323-8 ####[facility] LABCLIA [id number] [place] [address] Potassium [Moles/Vol] 3.4 mmol/L Low 3.7-5.1 [facility] Comment on above: Order Comment: Speci men Type: BLOOD SPECIMENOrdering Facility: [facility] Address: [address] [address] Performed By: #### 2 432-8 ####[facility] LABCLIA [id number] [place] [address] Protein [Mass/Vol] 6.3 g/dL Normal 6.3-8.0 [facility] Comment on above: Order Comment: Speci men Type: BLOOD SPECIMENOrdering Facility: [facility] Address: [address] [address] Performed By: #### 2 4323-8 ####[facility] LABCLIA [id number] [place] [address] Sodium [Moles/Vol] 142 mmol/L Normal 136-144 [facility] Comment on above: Order Comment: Speci men Type: BLOOD SPECIMENOrdering Facility: [facility] Address: [address] [address] Performed By: #### 2 4323-8 ####[facility] LABCLIA [id number] [place] [address] Urea nitrogen [Mass/Vol] 19 mg/dL Normal 9-24 [facility] Comment on above: Order Comment: Speci men Type: BLOOD SPECIMENOrdering Facility: [facility] Address: [address] [address] Performed By: #### 2 4323-8 ####[facility] LABCLIA [id number] [place] [address] CNPNon 03-01-2023 CNPN Normal [facility] CNPNon 02-26-2023 CNPN Normal [facility] Consultation Noteon 02-21-20 Consultation Note [id number]#1.00C D:127 Normal [facility] CBC W Auto Differential pane l (Bld)on 02-19-2023 Basophils (Bld) [#/Vol] 0.03 10*3/uL Normal <0.11 [facility] Comment on above: Order Comment: Speci men Type: BLOOD SPECIMENOrdering Facility: [facility] Address: [address] [place] [address] Performed By: #### 5 7021-8 ####[facility] LABCLIA [id number] [place] [address] Basophils/100 WBC (Bld) 0.5 % Normal [facility] Comment on above: Order Comment: Speci men Type: BLOOD SPECIMENOrdering Facility: [facility] Address: [address] [place] [address] Performed By: #### 5 7021-8 ####[facility] LABCLIA [id number] [place] [address] Differential cell count method Nom (Bld) Auto Normal [facility] Comment on above: Order Comment: Speci men Type: BLOOD SPECIMENOrdering Facility: [facility] Address: [address] [place] [address] Performed By: #### 5 7021-8 ####[facility] LABIA [id number] [place] [address] Eosinophils (Bld) [#/Vol] 0.13 10*3/uL Normal <0.46 [facility] Comment on above: Order Comment: Speci men Type: BLOOD SPECIMENOrdering Facility: [facility] Address: [address] [place] [address] Performed By: #### 5 7021-8 ####[facility] LABCLIA [id number] [place] [address] Eosinophils/100 WBC (Bld) 2.1 % Normal [facility] Comment on above: Order Comment: Speci men Type: BLOOD SPECIMENOrdering Facility: [facility] Address: [address] [place] [address] Performed By: #### 5 7021-8 ####[facility] LABCLIA [id number] [place] [address] Erythrocyte distribution width (RBC) [Ratio] 15.8 % High 11.5-15.0 [facility] Comment on above: Order Comment: Speci men Type: BLOOD SPECIMENOrdering Facility: [facility] Address: [address] [place] [address] Performed By: #### 5 7021-8 ####[facility] LABIA [id number] [place] [address] Hematocrit (Bld) [Volume fraction] 35.5 % Low 39.0-51.0 [facility] Comment on above: Order Comment: Speci men Type: BLOOD SPECIMENOrdering Facility: [facility] Address: [address] [place] [address] Performed By: #### 5 7021-8 ####[facility] LABIA [id number] [place] [address] Hemoglobin (Bld) [Mass/Vol] 11.8 g/dL Low 13.0-17.0 [facility] Comment on above: Order Comment: Speci men Type: BLOOD SPECIMENOrdering Facility: [facility] Address: [address] [place] [address] Performed By: #### 5 7021-8 ####[facility] LABIA [id number] [place] [address] Immature granulocytes (Bld) [#/Vol] 0.03 10*3/uL Normal <0.10 [facility] [facility] Comment on above: Order Comment: Speci men Type: BLOOD SPECIMENOrdering Facility: [facility] Address: [address] [place] [address] Performed By: #### 5 7021-8 ####[facility] LABCLIA [id number] [place] [address] Immature granulocytes/100 WBC (Bld) 0.5 % Normal [facility] Comment on above: Order Comment: Speci men Type: BLOOD SPECIMENOrdering Facility: [facility] Address: [address] [place] [address] Performed By: #### 5 7021-8 ####[facility] LABCLIA [id number] [place] [address] Lymphocytes (Bld) [#/Vol] 0.67 10*3/uL Low 1.00-4.00 [facility] Comment on above: Order Comment: Speci men Type: BLOOD SPECIMENOrdering Facility: [facility] Address: [address] [address] Performed By: #### 5 7021-8 ####[facility] LABIA [id number] [place] [address] Lymphocytes/100 WBC (Bld) 10.8 % Normal [facility] Comment on above: Order Comment: Speci men Type: BLOOD SPECIMENOrdering Facility: [facility] Address: [address] [place] [address] Performed By: #### 5 7021-8 ####[facility] LABIA [id number] [place] [address] MCH (RBC) [Entitic mass] 34.0 pg Normal 26.0-34.0 [facility] Comment on above: Order Comment: Speci men Type: BLOOD SPECIMENOrdering Facility: [facility] Address: [address] [place] [address] Performed By: #### 5 7021-8 ####[facility] LABCLIA [id number] [place] [address] MCHC (RBC) [Mass/Vol] 33.2 g/dL Normal 30.5-36.0 [facility] Comment on above: Order Comment: Speci men Type: BLOOD SPECIMENOrdering Facility: [facility] Address: [address] [place] [address] Performed By: #### 5 7021-8 ####[facility] LABCLIA [id number] [place] [address] MCV (RBC) [Entitic vol] 102.3 fL High 80.0-100.0 [facility] Comment on above: Order Comment: Speci men Type: BLOOD SPECIMENOrdering Facility: [facility] Address: [address] [place] [address] Performed By: #### 5 7021-8 ####[facility] LABIA [id number] [place] [address] Monocytes (Bld) [#/Vol] 0.95 10*3/uL High <0.87 [facility] Comment on above: Order Comment: Speci men Type: BLOOD SPECIMENOrdering Facility: [facility] Address: [address] [place] [address] Performed By: #### 5 7021-8 ####[facility] LABIA [id number] [place] [address] Monocytes/100 WBC (Bld) 15.3 % Normal [facility] Comment on above: Order Comment: Speci men Type: BLOOD SPECIMENOrdering Facility: [facility] Address: [address] [place] [address] Performed By: #### 5 7021-8 ####[facility] LABIA [id number] [place] [address] Neutrophils (Bld) [#/Vol] 4.40 10*3/uL Normal 1.45-7.50 [facility] Comment on above: Order Comment: Speci men Type: BLOOD SPECIMENOrdering Facility: [facility] Address: [address] [address] Performed By: #### 5 7021-8 ####[facility] LABCLIA [id number] [place] [address] Neutrophils/100 WBC (Bld) 70.8 % Normal [facility] Comment on above: Order Comment: Speci men Type: BLOOD SPECIMENOrdering Facility: [facility] Address: [address] [address] Performed By: #### 5 7021-8 ####[facility] LABCLIA [id number] [place] [address] Nucleated RBC (Bld) [#/Vol] 10*3/uL Normal <0.01 [facility] Comment on above: Order Comment: Speci men Type: BLOOD SPECIMENOrdering Facility: [facility] Address: [address] [place] [address] Performed By: #### 5 7021-8 ####[facility] LABCLIA [id number] [place] [address] Nucleated RBC/100 WBC (Bld) [Ratio] 0.0 /100 WBC Normal [facility] Comment on above: Order Comment: Speci men Type: BLOOD SPECIMENOrdering Facility: [facility] Address: [address] [place] [address] Performed By: #### 5 7021-8 ####[facility] LABCLIA [id number] [place] [address] Platelet mean volume (Bld) [Entitic vol] 9.6 fL Normal 9.0-12.7 [facility] Comment on above: Order Comment: Speci men Type: BLOOD SPECIMENOrdering Facility: [facility] Address: [address] [place] [address] Performed By: #### 5 7021-8 ####[facility] LABCLIA [id number] [place] [address] Platelets (Bld) [#/Vol] 186 10*3/uL Normal 150-400 [facility] Comment on above: Order Comment: Speci men Type: BLOOD SPECIMENOrdering Facility: [facility] Address: [address] [place] [address] Performed By: #### 5 7021-8 ####[facility] LABIA [id number] [place] [address] RBC (Bld) [#/Vol] 3.47 10*6/uL Low 4.20-6.00 [facility] Comment on above: Order Comment: Speci men Type: BLOOD SPECIMENOrdering Facility: [facility] Address: [address] [place] [address] Performed By: #### 5 7021-8 ####[facility] [id number] [place] [address] WBC (Bld) [#/Vol] 6.21 10*3/uL Normal 3.70-11.00 [facility] Comment on above: Order Comment: Speci men Type: BLOOD SPECIMENOrdering Facility: [facility] Address: [address] [place] [address] Performed By: #### 5 7021-8 ####[facility] [id number] [place] [address] Basophils (Bld) [#/Vol] 0.03 10*3/uL <0.11 k/uL [facility] Basophils/100 WBC (Bld) 0.5 % [facility] Differential cell count method Nom (Bld) Auto [facility] Eosinophils (Bld) [#/Vol] 0.13 10*3/uL <0.46 k/uL [facility] Eosinophils/100 WBC (Bld) 2.1 % [facility] Erythrocyte distribution width (RBC) [Ratio] 15.8 % High 11.5 - 15.0 % [facility] Hematocrit (Bld) [Volume fraction] 35.5 % Low 39.0 - 51.0 % [facility] Hemoglobin (Bld) [Mass/Vol] 11.8 g/dL Low 13.0 - 17.0 g/dL [facility] Immature granulocytes (Bld) [#/Vol] 0.03 10*3/uL <0.10 k/uL [facility] Immature granulocytes/100 WBC (Bld) 0.5 % [facility] Lymphocytes (Bld) [#/Vol] 0.67 10*3/uL Low 1.00 - 4.00 k/uL [facility] Lymphocytes/100 WBC (Bld) 10.8 % [facility] MCH (RBC) [Entitic mass] 34.0 pg 26.0 - 34.0 pg [facility] MCHC (RBC) [Mass/Vol] 33.2 g/dL 30.5 - 36.0 g/dL [facility] MCV (RBC) [Entitic vol] 102.3 fL High 80.0 - 100.0 fL [facility] Monocytes (Bld) [#/Vol] 0.95 10*3/uL High <0.87 k/uL [facility] Monocytes/100 WBC (Bld) 15.3 % [facility] Neutrophils (Bld) [#/Vol] 4.40 10*3/uL 1.45 - 7.50 k/uL [facility] Neutrophils/100 WBC (Bld) 70.8 % [facility] Nucleated RBC (Bld) [#/Vol] <0.01 k/uL [facility] Nucleated RBC/100 WBC (Bld) [Ratio] 0.0 /100 WBC [facility] Platelet mean volume (Bld) [Entitic vol] 9.6 fL 9.0 - 12.7 fL [facility] Platelets (Bld) [#/Vol] 186 10*3/uL 150 - 400 k/uL [facility] RBC (Bld) [#/Vol] 3.47 10*6/uL Low 4.20 - 6.0 0 m/uL [facility] WBC (Bld) [#/Vol] 6.21 10*3/uL 3.70 - 11.00 k/uL [facility] CNOVSPon 02-19-2023 CNOVSP Normal [facility] metabolic 2000 panelon 02-19-2023 Albumin [Mass/Vol] 3.6 g/dL Low 3.9-4.9 [facility] Comment on above: Order Comment: Speci men Type: BLOOD SPECIMENOrdering Facility: [facility] Address: [address] [place] [address] Performed By: #### 2 4323-8 ####[facility] LABCLIA [id number] [place] [address] ALP [Catalytic activity/Vol] 118 U/L High 38-113 [facility] Comment on above: Order Comment: Speci men Type: BLOOD SPECIMENOrdering Facility: [facility] Address: [address] [address] Performed By: #### 2 4323-8 ####[facility] LABCLIA [id number] [place] [address] ALT [Catalytic activity/Vol] 10 U/L Normal 10-54 [facility] Comment on above: Order Comment: Speci men Type: BLOOD SPECIMENOrdering Facility: [facility] Address: [address] [place] [address] Performed By: #### 2 4323-8 ####[facility] LABCLIA [id number] [place] [address] Anion gap [Moles/Vol] 7 mmol/L Low 9-18 [facility] Comment on above: Order Comment: Speci men Type: BLOOD SPECIMENOrdering Facility: [facility] Address: [address] [place] [address] Performed By: #### 2 4323-8 ####[facility] LABCLIA [id number] [place] [address] AST [Catalytic activity/Vol] 14 U/L Normal 14-40 [facility] Comment on above: Order Comment: Speci men Type: BLOOD SPECIMENOrdering Facility: [facility] Address: [address] [place] [address] Performed By: #### 2 4323-8 ####[facility] LABCLIA [id number] [place] [address] Bilirubin [Mass/Vol] 0.4 mg/dL Normal 0.2-1.3 [facility] Comment on above: Order Comment: Speci men Type: BLOOD SPECIMENOrdering Facility: [facility] Address: [address] [place] [address] Performed By: #### 2 4323-8 ####[facility] LABCLIA [id number] [place] [address] Calcium [Mass/Vol] 9.2 mg/dL Normal 8.5-10.2 [facility] Comment on above: Order Comment: Speci men Type: BLOOD SPECIMENOrdering Facility: [facility] Address: [address] [place] [address] Performed By: #### 2 4323-8 ####[facility] LABCLIA [id number] [place] [address] Chloride [Moles/Vol] 105 mmol/L Normal 97-105 [facility] Comment on above: Order Comment: Speci men Type: BLOOD SPECIMENOrdering Facility: [facility] Address: [address] [place] [address] Performed By: #### 2 4323-8 ####[facility] LABCLIA [id number] [place] [address] CO2 [Moles/Vol] 28 mmol/L Normal 22-30 [facility] Comment on above: Order Comment: Speci men Type: BLOOD SPECIMENOrdering Facility: [facility] Address: [address] [place] [address] Performed By: #### 2 4323-8 ####[facility] LABCLIA [id number] [place] [address] Creatinine [Mass/Vol] 1.11 mg/dL Normal 0.73-1.22 [facility] Comment on above: Order Comment: Speci men Type: BLOOD SPECIMENOrdering Facility: [facility] Address: [address] [place] [address] Performed By: #### 2 4323-8 ####[facility] LABCLIA [id number] [place] [address] ESTIMATED GLOMERULAR FILTRATION RATE 71 mL/min/1.73m??? Normal >=60 [facility] Comment on above: Order Comment: Speci men Type: BLOOD SPECIMENOrdering Facility: [facility] Address: [address] [address] Result Comment: Rebekah mated Glomerular Filtration Rate [...] actual GFR. Performed By: #### 2 4323-8 ####[facility] LABCLIA [id number] [place] [address] Glucose [Mass/Vol] 89 mg/dL Normal 74-99 [facility] Comment on above: Order Comment: Nazario brooks Type: BLOOD SPECIMENOrdering Facility: [facility] Address: [facility] [address] [address] Result Comment: The [place] [employer] (ADA) provides guidance for cutoff [...] Standards of Medical Care in Diabetes 2016, [place] [employer]. Diabetes Care. 2016.39(Suppl 1). Performed By: #### 2 4323-8 ####[facility] LABCLIA [id number] [place] [address] Potassium [Moles/Vol] 3.9 mmol/L Normal 3.7-5.1 [facility] Comment on above: Order Comment: Speci men Type: BLOOD SPECIMENOrdering Facility: [facility] Address: [address] [place] [address] Performed By: #### 2 4323-8 ####[facility] LABCLIA [id number] [place] [address] Protein [Mass/Vol] 6.0 g/dL Low 6.3-8.0 [facility] Comment on above: Order Comment: Speci men Type: BLOOD SPECIMENOrdering Facility: [facility] Address: [address] [place] [address] Performed By: #### 2 4323-8 ####[facility] LABCLIA [id number] [place] [address] Sodium [Moles/Vol] 140 mmol/L Normal 136-144 [facility] Comment on above: Order Comment: Speci men Type: BLOOD SPECIMENOrdering Facility: [facility] Address: [address] [place] [address] Performed By: #### 2 4323-8 ####[facility] LABCLIA [id number] [place] [address] Urea nitrogen [Mass/Vol] 14 mg/dL Normal 9-24 [facility] Comment on above: Order Comment: Speci men Type: BLOOD SPECIMENOrdering Facility: [facility] Address: [address] [address] Performed By: #### 2 4323-8 ####[facility] LABCLIA [id number] [place] [address] Albumin [Mass/Vol] 3.6 g/dL Low 3.9 - 4.9 g/dL [facility] ALP [Catalytic activity/Vol] 118 U/L High 38 - 113 U/L [facility] ALT [Catalytic activity/Vol] 10 U/L 10 - 54 U/L [facility] Anion gap [Moles/Vol] 7 mmol/L Low 9 - 18 mmol/L [facility] AST [Catalytic activity/Vol] 14 U/L 14 - 40 U/L [facility] Bilirubin [Mass/Vol] 0.4 mg/dL 0.2 - 1 .3 mg/dL [facility] Calcium [Mass/Vol] 9.2 mg/dL 8.5 - 10. 2 mg/dL [facility] Chloride [Moles/Vol] 105 mmol/L 97 - 10 5 mmol/L [facility] CO2 [Moles/Vol] 28 mmol/L 22 - 30 mmol/L [facility] Creatinine [Mass/Vol] 1.11 mg/dL 0.73 - 1.22 mg/dL [facility] Estimated Glomerular Filtration Rate 71 mL/min/1.73m >=60 mL/min/1.73 m [facility] Glucose [Mass/Vol] 89 mg/dL 74 - 99 mg/dL [facility] Potassium [Moles/Vol] 3.9 mmol/L 3.7 - 5.1 mmol/L [facility] Protein [Mass/Vol] 6.0 g/dL Low 6.3 - 8.0 g/dL [facility] Sodium [Moles/Vol] 140 mmol/L 136 - 144 mmol/L [facility] Urea nitrogen [Mass/Vol] 14 mg/dL 9 - 24 mg/dL [facility] CNOVon 02-07-2023 CNOV Normal [facility] CNPNon 02-07-2023 CNPN Normal [facility] Consultation Noteon 02-07-20 Consultation Note [id number]#[id number] D:127 Normal [facility] CBC W Auto Differential pane l (Bld)on 02-05-2023 Basophils (Bld) [#/Vol] 0.04 10*3/uL Normal <0.11 [facility] Comment on above: Order Comment: Speci men Type: BLOOD SPECIMENOrdering Facility: [facility] Address: [address] [place] [address] Performed By: #### 5 7021-8 ####[facility] LABCLIA [id number] [place] [address] Basophils/100 WBC (Bld) 0.8 % Normal [facility] Comment on above: Order Comment: Speci men Type: BLOOD SPECIMENOrdering Facility: [facility] Address: [address] [place] [address] Performed By: #### 5 7021-8 ####[facility] LABCLIA [id number] [place] [address] Differential cell count method Nom (Bld) Auto Normal [facility] Comment on above: Order Comment: Speci men Type: BLOOD SPECIMENOrdering Facility: [facility] Address: [address] [place] [address] Performed By: #### 5 7021-8 ####[facility] LABCLIA [id number] [place] [address] Eosinophils (Bld) [#/Vol] 0.19 10*3/uL Normal <0.46 [facility] Comment on above: Order Comment: Speci men Type: BLOOD SPECIMENOrdering Facility: [facility] Address: [address] [address] Performed By: #### 5 7021-8 ####[facility] LABCLIA [id number] [place] [address] Eosinophils/100 WBC (Bld) 3.8 % Normal [facility] Comment on above: Order Comment: Speci men Type: BLOOD SPECIMENOrdering Facility: [facility] Address: [address] [place] [address] Performed By: #### 5 7021-8 ####[facility] LABCLIA [id number] [place] [address] Erythrocyte distribution width (RBC) [Ratio] 15.9 % High 11.5-15.0 [facility] Comment on above: Order Comment: Speci men Type: BLOOD SPECIMENOrdering Facility: [facility] Address: [address] [place] [address] Performed By: #### 5 7021-8 ####[facility] LABCLIA [id number] [place] [address] Hematocrit (Bld) [Volume fraction] 35.5 % Low 39.0-51.0 [facility] Comment on above: Order Comment: Speci men Type: BLOOD SPECIMENOrdering Facility: [facility] Address: [address] [place] [address] Performed By: #### 5 7021-8 ####[facility] LABCLIA [id number] [place] [address] Hemoglobin (Bld) [Mass/Vol] 11.8 g/dL Low 13.0-17.0 [facility] Comment on above: Order Comment: Speci men Type: BLOOD SPECIMENOrdering Facility: [facility] Address: [address] [place] [address] Performed By: #### 5 7021-8 ####[facility] LABCLIA [id number] [place] [address] Immature granulocytes (Bld) [#/Vol] 10*3/uL Normal <0.10 [facility] Comment on above: Order Comment: Speci men Type: BLOOD SPECIMENOrdering Facility: [facility] Address: [address] [place] [address] Performed By: #### 5 7021-8 ####[facility] LABCLIA [id number] [place] [address] Immature granulocytes/100 WBC (Bld) 0.2 % Normal [facility] Comment on above: Order Comment: Speci men Type: BLOOD SPECIMENOrdering Facility: [facility] Address: [address] [place] [address] Performed By: #### 5 7021-8 ####[facility] LABIA [id number] [place] [address] Lymphocytes (Bld) [#/Vol] 0.49 10*3/uL Low 1.00-4.00 [facility] Comment on above: Order Comment: Speci men Type: BLOOD SPECIMENOrdering Facility: [facility] Address: [address] [place] [address] Performed By: #### 5 7021-8 ####[facility] LABCLIA [id number] [place] [address] Lymphocytes/100 WBC (Bld) 9.7 % Normal [facility] Comment on above: Order Comment: Speci men Type: BLOOD SPECIMENOrdering Facility: [facility] Address: [address] [place] [address] Performed By: #### 5 7021-8 ####[facility] LABCLIA [id number] [place] [address] MCH (RBC) [Entitic mass] 34.4 pg High 26.0-34.0 [facility] Comment on above: Order Comment: Speci men Type: BLOOD SPECIMENOrdering Facility: [facility] Address: [address] [place] [address] Performed By: #### 5 7021-8 ####[facility] LABCLIA [id number] [place] [address] MCHC (RBC) [Mass/Vol] 33.2 g/dL Normal 30.5-36.0 [facility] Comment on above: Order Comment: Speci men Type: BLOOD SPECIMENOrdering Facility: [facility] Address: [address] [place] [address] Performed By: #### 5 7021-8 ####[facility] LABCLIA [id number] [place] [address] MCV (RBC) [Entitic vol] 103.5 fL High 80.0-100.0 [facility] Comment on above: Order Comment: Speci men Type: BLOOD SPECIMENOrdering Facility: [facility] Address: [address] [place] [address] Performed By: #### 5 7021-8 ####[facility] LABCLIA [id number] [place] [address] Monocytes (Bld) [#/Vol] 0.62 10*3/uL Normal <0.87 [facility] Comment on above: Order Comment: Speci men Type: BLOOD SPECIMENOrdering Facility: [facility] Address: [address] [place] [address] Performed By: #### 5 7021-8 ####[facility] LABCLIA [id number] [place] [address] Monocytes/100 WBC (Bld) 12.3 % Normal [facility] Comment on above: Order Comment: Speci men Type: BLOOD SPECIMENOrdering Facility: [facility] Address: [address] [place] [address] Performed By: #### 5 7021-8 ####[facility] LABIA [id number] [place] [address] Neutrophils (Bld) [#/Vol] 3.70 10*3/uL Normal 1.45-7.50 [facility] Comment on above: Order Comment: Speci men Type: BLOOD SPECIMENOrdering Facility: [facility] Address: [address] [place] [address] Performed By: #### 5 7021-8 ####[facility] LABCLIA [id number] [place] [address] Neutrophils/100 WBC (Bld) 73.2 % Normal [facility] Comment on above: Order Comment: Speci men Type: BLOOD SPECIMENOrdering Facility: [facility] Address: [address] [place] [address] Performed By: #### 5 7021-8 ####[facility] LABIA [id number] [place] [address] Nucleated RBC (Bld) [#/Vol] 10*3/uL Normal <0.01 [facility] Comment on above: Order Comment: Speci men Type: BLOOD SPECIMENOrdering Facility: [facility] Address: [address] [address] Performed By: #### 5 7021-8 ####[facility] LABCLIA [id number] [place] [address] Nucleated RBC/100 WBC (Bld) [Ratio] 0.0 /100 WBC Normal [facility] Comment on above: Order Comment: Speci men Type: BLOOD SPECIMENOrdering Facility: [facility] Address: [address] [place] [address] Performed By: #### 5 7021-8 ####[facility] LABCLIA [id number] [place] [address] Platelet mean volume (Bld) [Entitic vol] 9.4 fL Normal 9.0-12.7 [facility] Comment on above: Order Comment: Speci men Type: BLOOD SPECIMENOrdering Facility: [facility] Address: [address] [place] [address] Performed By: #### 5 7021-8 ####[facility] LABCLIA [id number] [place] [address] Platelets (Bld) [#/Vol] 162 10*3/uL Normal 150-400 [facility] Comment on above: Order Comment: Speci men Type: BLOOD SPECIMENOrdering Facility: [facility] Address: [address] [place] [address] Performed By: #### 5 7021-8 ####[facility] LABIA [id number] [place] [address] RBC (Bld) [#/Vol] 3.43 10*6/uL Low 4.20-6.00 [facility] Comment on above: Order Comment: Speci men Type: BLOOD SPECIMENOrdering Facility: [facility] Address: [address] [place] [address] Performed By: #### 5 7021-8 ####[facility] LABCLIA [id number] [place] [address] WBC (Bld) [#/Vol] 5.05 10*3/uL Normal 3.70-11.00 [facility] Comment on above: Order Comment: Speci men Type: BLOOD SPECIMENOrdering Facility: [facility] Address: [place] [address] Performed By: #### 5 7021-8 ####[facility] LABCLIA [id number] [place] [address] CNOVSPon 02-05-2023 CNOVSP Normal [facility] Coding Summary.on 02-05-2023 Coding Summary. CD:[id number] Ww+ PGhlYWQ+RP0XFXZpJ75caER leP7kS3SGIGdVKldpPIJZFH bDKfVkwnCpIE1qbBZpBUUv IC8+YN8pCQZqGosvzDGce8N 9xXX2E33qvi0yTRimlBD8GI TvQuTeeiirg7krbQh3MEquL mluOyBt FLEvkD85CQW8vX09Dr52jFP bsXCwi6mvmNk9ZaHlNLMhMF H5rLwzEYjfk4AkZJQtH75dk ZBkz7F3 UXGfeJswgYXgBvQakRI7sA0 wJIyeojrmx8waabqmPav7nm 96fUZvd0C7dXB6A4DxsjM3K GJvbGQg KowysVKPgH3lskbnq4ymkcf bIuDeYMOgIUc6SJb0VQXtyO xkEiEpNA16ECK3MHSaveVqM 2FsLWFs wCnvNbO1p4G1Om3AI7IZOsp wA3YBFVQEYNdmcJJ+PC90cj 10F8JhQcwgWwi1QEDoHAG8s XW3bS0u XRZuMWduo2P3oLA6W4IvuzQ mrs2mf1daFNYxGOorH69kuW Lss1L5PJFbrNS4VEYraCdhY iBzaG93 Oyc+OXSivPwwe5GhPziuq3p wa5gwjDg0NbiuQCQrgzOncJ taRDJ4u5GxDs0rUNEoiCK2z PF7qH0h MzBpCzS0JFubE076LpAgwKA xMdkwN61rS4HuiQB+PHRyPj u6ZTWtaFwfXB9jZ2LhOLDgr mctbGVm rOmfIP7xXPPzdkogIVCkgH6 fDBTxD0d4HxCfRkH7AWlfV2 UdMPOsmpzvAt35pJ9mUdFaU gR9LSmj T7RrcsZ9BXUzjOFfBLzgOZB 7Y67zu2Z4PWIlNTLeWRT7jN P3iI8dsUfquticmXIdlZyjt mVydGlj ZLpcXBiuX231SSHhfWksJfD vZGluZyBEYXRlOiAgMDQvMT gvMjAyMzwvdGQ+QZBaFYL5f WxlPSAn mIMeZQadMs1eyNaewLdeAT1 dXOQndhfsGUGtiT5gSGNupH SixDmaPQ7aTVLtratdv592M iAxMHB0 YXRvbPBzQ5XupM0uZsYlZSR rRJBkN8XoiSDcJDftD789GR wxCbQ5WQMcoaEfY8SbOFBma WduOiB0 t6U3Tc0Hk7EvfgtyY2HbbTX hIhEmEdqlTKd8O4YaGdsulQ I+ON59QUMlAI41ANp2TYK7d WxlPSdi JFAhC2KdxY9bMhMcDIJzOMK kOyc+PHRhYmxlIHdpZHRoPS dcSPPdLuWgeHatPC8yZi0nX GVyLWNv mPsdhFAtMmQgz0tmNOOpNMq tSP6giKqaT8UolLI0QRJgl5 f2Ay09G30aE9KdjPH+PGNvb UF3hUX2 tK0zDkGzJjQ9TBtzS005QuR beMJbYejea0jqo7htnGf7Qz X3PCYxrwWnaXnbDPE7i0KoF t20M28r IHdpZHRoPSIxNSUiIHZhbGl jpn8gmC5xJq4+LUJjkRF4fO D9vP5jCbRuPyG9RSjzP915N nRvcCIv Whvxb1xee5ijmCu8EqEtOMV fagOmmDkcFEQ2b1GaEf75W7 SeeAoik6UvFjt1uc86nVHex 1X3oBB6 R5HjYENypbrcgBNovRmyHA4 bKHPuzvryMVMzcF3jYORrA3 o4LtSrSjE0WRhwZ3HbdsX2C GJvbGQg BLYaiYNOxV3qpgfjk8wbwga xKpUtERGsUHl6IPq1MEYpzO xtNgOhJDC1GiF6KES7wPGcr O3xaTqr yrshdE9pCah+STC8dWUhwSD LHH1mRumpuVP+XOQtCPF7sR vlUNihBAKyuN7hRVQcV1q4Y iAwLjA1 QUqeU4OovjY8WCTfyFQxRBR dyBVMbP7oztbid1tcrzxaBp WcCDVyVRz4BOy2YOIfzYluF iBsZWZ0 AcP4YTQ7pMRhnH5tdIhnpgh wbG1zDad+LubkcTtkHDS4XF y0N9KhBfg0PEUopOiiFH8xj GFkZGlu Fm3baAgacUwlZP5jDQIqkas lh139QcBvo0ecVKFdyNEvPK nvBWS0Q25ma7M9KGOyEINgZ CJ7aZF1 fV3qxUbfkpacbXMisMlfqhF bdQvePOhhCUjqF019EEXpgG soBtKyMIe5T5GlJtc4VEFrz OqkTM8y oZRcARqaAm9owRlwcDhxCY4 kSKLndpqui395ZoWun9qqKS JmvIGkEOazPSY5M04ka7N3T CMwMDAw UJM8wJZ6sJ9wiTtvhofilES mdDsgdmVydGljYWwtYWxpZ2 08QAYjtAvpLdFdtGj3T6DqQ cm2DIWz mVnrRU9hvBCrVKslOc6mbRp wjPboZY9oWHPivyybn117Gu Avw9vhREQjsQMlLIgpOFC0Y 19dp5J0 XYUzFNHvWRV2hTH4aY6zfSp nbjogbGVmdDsgdmVydGljYW wpAZfsK053YAXspMlrBcVmj GllbnQg QYqwHAy5T2TbNrpwzWX+PC9 6WECoNV24pARzaVRai4afrW f9CjMkNTNoTFG3eKunAYdky 3JkZXIt C92ajVFlu4Q0DGMkzMpuvNS iMhJhsNO8sW2bKZinnzoym1 ehmpfqMebky6vosn01wN63L 29sIHdp ZHRoPSIzMCUiIHZhbGlnbj0 byX0cUg5+JXNsaRJ0bYS4iK 7jCCTlLbN1REvgR227QyLmt CIvPjxj r1fbf4qgnQt2WrG9PBSuprY rkAakZLU6q1LxId82J36hHQ dpZHRoPSIyMCUiIHZhbGlnb n7pfT3h Ii8+RCEdaBM4nJY7hG9aDwT hEfK9EUpgD721LkPfnPWoZm ddG69gP5TfsKC+SYAqJre6U CBzdHls SD8mkSJhXDxbPv1iTHM9NwD bAmMjIKfxL9OpFTTmtbvgtr lsgWV3KLZzRDSpoF22Kn6bw DogMTBw xXUCwM4flmmzr3vukcneAjK nVNNbFLy9QFk9KZLnuTpdZx WiNJA1JrC7KOA6kDLraH5cw Glnbjog sW5zZ3PwKKTlorpzDe57nF4 nUuOnTtR5EVfyLfz+V0FTSU 6KQRiuMG4KI4eGKWzmIDtpd GQ+PHRk JUX4qWchIPjuFDZrtZ9iDSI rI2z6UjVrAmU2KLqwD1ZfVC KjdzqoNp39cS5dHwEyJuU9J UpnE5Qw jgI8OHNfuLMbDQylTXT3W50 zh4L9UYSsWEEfAYL0uOT6kA 1hbGlnbjogbGVmdDsgdmVyd GljYWwt FCavT675MDWyiCgjGaQiIdQ 3ZoX7CCU5H9EuTcm9UAGfqK rwGW9czDCvIMkyAp0vxCnjt PcdBD6q KAFhrdqkSBFbbY3qCPLxoKT rsPdfIT0ePEAuunqlf700Tj IoIAG9AJShkKBuM0EveU3bP iAjMDAw KIHhQ5LagQSbUVyeT173FPv mYrB4FIFgpbQdO6WaEMEvoH ebXuZ8n2W8If87QQWHQZKxj zwvdGQ+ IUGzNZO1zKhdYXqcCJPekO2 oUZJmB3m4EqMnElE9BRmaS9 UcWSQzwaopLv96lU0oEtLxX hA4OKuv W8CfnlJ8YVOheXIaWDjdWYD 0F67ng5D3FVCeGNMfHLO5eD J9eJ7bwPmngbxerIAuvFzjd mVydGlj CIslFIceQ174OZGtbBliWc7 fzWQ3K8NbJzc0MHZsqCvdLZ 3sjPZbYOgdWa9xmXrfcMqaF E1rZVEb ejkhIMJvsB5oKLAgjLMkcNh rOH0zOYBqydfhv863AaLxRX X2CXMeiTBvW4HgeG6fKbTkX DAwMDAw O1EscDXtIPkgW289XRxdEdE 0ZGXuqcIoV8IgZXJkyEqwXq Z0v3B0Rp2HuQXkAUPdXU27R W06VP14 E2VlWlbvcGHsfZA+PHRhYmx lIHdpZHRoPScxMDAlJyBzdH mdDK5kEm4dOWGkDJItqJskd HNlOiBj v3vfTPKvYHobOJ1tgHodT2W ypWV2XYQhy7z7Ql24G10gQ0 JvdXA+DCRmcPG3zCY7vI9eC zAlIiB2 OXhfG813YoNcdGWcHlgsp9t md8zxdNi8OmSpPCMvhsPmxA rxDDY8n7TiIm90Q91wEWdjT HRoPSIy NJCaJYErmSpxrn7qqI2lIi0 +TKQkfMM4hOT3mK0gIwBiOl Y3XYecC308UcKvuIUaFbacY 58wV2Yj dXA+GKEuZfp7KWIcgMqhDJ6 eeZOjRRcgNu9lLIX5KmPvZt IaBXohW9ZnGWSxujaaflmrc GE8FGWo QHNbkO15Kg3kuHhsDi2bTJJ uXFO8OTHfdUJzV2GluG3sSu WhYCFjCUCfT2TcuTYvZDciJ 246IGxl EkO5CLMfpgOsB5KtYFQluXc eVhM9v6W0Sg7DjKeomQEfTF 1uObGcSHk9J3EuVgi6QCSkr NzcMK0l wJQqIAfeSc8xcSeavNwwJI4 nWTMlfnpow921TfSth9whWV FkbOZxYOxtXQD6R78ju2U0W CMwMDAw XNA6iEB0aI4ykBozohojrNS mdDsgdmVydGljYWwtYWxpZ2 50EHWsiJinMxLQMiz3O5EgH xa6KJUn eItuXT8hzVQtLFixZl3wmNv rdVrrCK4mGYAbyxape768Uk Paf8xsUIDibEBiNErxMOO9R 39nd1K9 MTLjFZPpTIA8cEN4lO2btOg nbjogbGVmdDsgdmVydGljYW bpRXhaK034XGLgtEbjHk5EW rb7D6Bf Ipt2DXGqfOjiUS9rnXNsWJm vYn5hqWgzmTewYE0sUVSkfp cha550ZqUqf1xwXPJqxEBpG GltZXM7 Z45sb3I2DUAwNSGqHYT0fAN 1xZ4biHlwpgnnxXThbNcage YlyWklEKnrDZiiF061HTTvk DsnPlBh eWVyOjwvdGQ+ZJ42vb43C2E yCnykJkp8OAVkOZM0iVL8dO 9oXQOlVVjok4A1kWD8Z8Chk bFkqk4d a5vfFBBh (more content not included)... Normal [facility] Comprehensive metabolic 2000 panelon 02-05-2023 Albumin [Mass/Vol] 3.7 g/dL Low 3.9-4.9 [facility] Comment on above: Order Comment: Speci men Type: BLOOD SPECIMENOrdering Facility: [facility] Address: [address] [place] [address] Performed By: #### 2 4323-8 ####[facility] LABCLIA [id number] [place] [address] ALP [Catalytic activity/Vol] 105 U/L Normal 38-113 [facility] Comment on above: Order Comment: Speci men Type: BLOOD SPECIMENOrdering Facility: [facility] Address: [address] [address] Performed By: #### 2 4323-8 ####[facility] LABCLIA [id number] [place] [address] ALT [Catalytic activity/Vol] 11 U/L Normal 10-54 [facility] Comment on above: Order Comment: Speci men Type: BLOOD SPECIMENOrdering Facility: [facility] Address: [address] [address] Performed By: #### 2 4323-8 ####[facility] LABCLIA [id number] [place] [address] Anion gap [Moles/Vol] 10 mmol/L Normal 9-18 [facility] Comment on above: Order Comment: Speci men Type: BLOOD SPECIMENOrdering Facility: [facility] Address: [address] [address] Performed By: #### 2 4323-8 ####[facility] LABCLIA [id number] [place] [address] AST [Catalytic activity/Vol] 14 U/L Normal 14-40 [facility] Comment on above: Order Comment: Speci men Type: BLOOD SPECIMENOrdering Facility: [facility] Address: [address] [address] Performed By: #### 2 4323-8 ####[facility] LABCLIA [id number] [place] [address] Bilirubin [Mass/Vol] 0.8 mg/dL Normal 0.2-1.3 [facility] Comment on above: Order Comment: Speci men Type: BLOOD SPECIMENOrdering Facility: [facility] Address: [address] [place] [address] Performed By: #### 2 4323-8 ####[facility] LABCLIA [id number] [place] [address] Calcium [Mass/Vol] 9.2 mg/dL Normal 8.5-10.2 [facility] Comment on above: Order Comment: Speci men Type: BLOOD SPECIMENOrdering Facility: [facility] Address: [address] [place] [address] Performed By: #### 2 4323-8 ####[facility] LABCLIA [id number] [place] [address] Chloride [Moles/Vol] 107 mmol/L High 97-105 [facility] Comment on above: Order Comment: Speci men Type: BLOOD SPECIMENOrdering Facility: [facility] Address: [address] [place] [address] Performed By: #### 2 4323-8 ####[facility] LABCLIA [id number] [place] [address] CO2 [Moles/Vol] 24 mmol/L Normal 22-30 [facility] Comment on above: Order Comment: Speci men Type: BLOOD SPECIMENOrdering Facility: [facility] Address: [address] [place] [address] Performed By: #### 2 4323-8 ####[facility] LABCLIA [id number] [place] [address] Creatinine [Mass/Vol] 1.10 mg/dL Normal 0.73-1.22 [facility] Comment on above: Order Comment: Speci men Type: BLOOD SPECIMENOrdering Facility: [facility] Address: [address] [place] [address] Performed By: #### 2 4323-8 ####[facility] LABCLIA [id number] [place] [address] ESTIMATED GLOMERULAR FILTRATION RATE 72 mL/min/1.73m??? Normal >=60 [facility] Comment on above: Order Comment: Speci men Type: BLOOD SPECIMENOrdering Facility: [facility] Address: [address] [place] [address] Result Comment: Rebekah mated Glomerular Filtration Rate [...] actual GFR. Performed By: #### 2 4323-8 ####[facility] LABCLIA [id number] [place] [address] Glucose [Mass/Vol] 108 mg/dL High 74-99 [facility] Comment on above: Order Comment: Speci men Type: BLOOD SPECIMENOrdering Facility: [facility] Address: [address] [place] [address] Result Comment: The [place] [employer] (ADA) provides guidance for cutoff [...] Standards of Medical Care in Diabetes 2016, [employer]. Diabetes Care. 2016.39(Suppl 1). Performed By: #### 2 4323-8 ####[facility] LABCLIA [id number] [place] [address] Potassium [Moles/Vol] 3.4 mmol/L Low 3.7-5.1 [facility] Comment on above: Order Comment: Speci men Type: BLOOD SPECIMENOrdering Facility: [facility] Address: [address] [place] [address] Performed By: #### 2 4323-8 ####[facility] LABCLIA [id number] [place] [address] Protein [Mass/Vol] 5.9 g/dL Low 6.3-8.0 [facility] Comment on above: Order Comment: Speci men Type: BLOOD SPECIMENOrdering Facility: [facility] Address: [address] [place] [address] Performed By: #### 2 4323-8 ####[facility] LABCLIA [id number] [place] [address] Sodium [Moles/Vol] 141 mmol/L Normal 136-144 [facility] Comment on above: Order Comment: Speci men Type: BLOOD SPECIMENOrdering Facility: [facility] Address: [address] [id number] Performed By: #### 2 4323-8 ####[facility] LABCLIA [id number] [place] [address] Urea nitrogen [Mass/Vol] 18 mg/dL Normal 9-24 [facility] Comment on above: Order Comment: Speci men Type: BLOOD SPECIMENOrdering Facility: [facility] Address: [address] [id number] Performed By: #### 2 4323-8 ####[facility] LABIA [id number] [place] [address] CNOVon 02-04-2023 CNOV Normal [facility] Physician Orderon 02-01-2023 Physician Order [id number] CD:127 Normal [facility] Coding Summary.on 01-31-2023 Coding Summary. CD:[id number] Ww+ PGhlYWQ+AH9NBICwM98cfXB dqZ1dW2AIXBzCLdedDNOHTZ gPHpGfadWaIQ4buAYbTVCe IC8+UG4gOAWpTzlhcZUay3W 9mWZ4T72css2yRJvryFZ8AG QxXwQextgzb3gdaSv7NUhqV mluOyBt YUDvxI11PPQ8fV27Be80xEK tpJWcf2kdtJa1OqRuZVDhOY C8yOdeHRuyg4AqOSIkW43sd EEpb5B7 IHWlfNawwBKxDiFeoFD4bL9 kRMvwjvfus3gsqyutCrx4ua 06pDQzv7Y3tZA5W5ObheZ3W GJvbGQg InqteYFSpJ0pxskbq2kxyek qKjVvIOZgMRc4ZWa0GCEidG hyRhEhSC67FLX6JJSsbjSbI 2FsLWFs aIxsDwH7k7O7Er1VD1CULuc hL3HXNCSCQNnupDE+PC90cj 05L8HhKfcbHcj2NMTuPUV5q YS9mW1s LKElGAhwj7A9iZB1X4HkxmP vyr0qc5lxCBRqWHdyE20ooC Wzr3Z7WRWkxXV6QIJjpIhiP iBzaG93 Oyc+KCHbuFurx7RcCpdyd3p ze7jglMx2OzcvKRSfocQqyB rlGOH9w0OeCy8zKZFczUC5z JG8dB7l LwUrJiJ0QJwvI001SbChsKX fZxeiO06zS9LgzOK+PHRyPj x9TIIczMjxPN2yY1VcKNKkr mctbGVm bKglVI1yDMYaguamBNKdzZ5 lGQMdN6g7UyJkMcO6FBwqA9 DeLLFiixzsLg58yF6pHkYoJ rG3LJwo A7PqkwM1BCXwmCTxJCloEBV 3F99sl5N6NIBeVBWmIVT7uF V1eL8keDsijnoipUFxeVfki mVydGlj JQkpKOgcP521PBEddBedMcA vZGluZyBEYXRlOiAgMDQvMT MvMjAyMzwvdGQ+IWLpWDL9q WxlPSAn gJPsJNqhNg1rzGorkWczJS9 hBCYorqhlGVGurQ3rKLZmcK KbvClgBQ3vUCKmsnbaj103E iAxMHB0 WYQmxNFjS7ChlM7cCwAcOHM dUAFqT8DjzKRqIQvnO049OJ kyOnI3SDOzbhSfX0HyKBIpd WduOiB0 e5R9Qq9Ll0ZvugzwF7KveBT oBeZcUrlcOCd7Y8KsBwtafR I+NB90VZSxNZ47HPs9SPZ9c WxlPSdi CERwV5YdkN3vFhBxSAKhOKW kOyc+PHRhYmxlIHdpZHRoPS liYXIgQxYmhSzgLR3pDs8bF GVyLWNv rYzjgMDnFqMgh2lcXNVxEWh cRF2wjAfoX5YalTU9FLYiu8 k4Bu15F01mS2JumND+PGNvb NG3mUU9 rW7mYeVeEzN5BBkeU538UzF coCWpGhrcm2yol0qdrWo6Ih G5FDIysiFlmPghLBI1r7PzF b55K21v IHdpZHRoPSIxNSUiIHZhbGl agr4bzQ9xCz7+PGJbkYA3rN V6dH4dCdDwPzI5OMnzS008B nRvcCIv Kamuk0niq0yhpYf3KdXjWDI cluRieWqqCBN2q2FpCy04A1 VdsAdqf8VxRtm1gh39jVNnc 5Y9uLV9 I5XrAAIlzybdbHWkvAceWJ2 lIEPgjcjgEHRdoZ0yUJLzA5 e8DzRjBaB9PWqeA9GgvmX2Q GJvbGQg UGDnzPKUxU0bziyym1qoyrs iPyHqGLYmAOc8ETp1WUAxzC zrStAiNDD7BjU1FRK8zCKnh R5arMsc gtsxyM7qPzh+FVE7rETfoWU MYX5lKuievNB+EQAfLDA7oX joOSebAQWodR5oOLJhC7n8R iAwLjA1 GNriH5StjxL4XPDjmUBtNLL qmHDPkD6tntloo6sqnfjgIs CpZXLxDTf7HDr8DTTfkEpyU iBsZWZ0 CoO2ALK4cGQrbC7wyExmjlo noP6fEkd+QohkoLkqHFD3RL v0N3AyWmg0DTPdgVjhEF9ew GFkZGlu Mk8qvMvzdAwcKC6lQYGohua zi474CuXlo9ndYEGckZRhYQ evSGU1T13ai7A4HQEbCTDcQ GD4lYB4 jS1ezGvrakxesENpwVezksU pvEwnBQqtUAdqP196YXQhjI cgZzZhTUf4W4NdLpd8FTGmh DklTI2p jJCtNJtfCt7qmBghzQqoOO3 xFPFhyuwvn704AfCgi4bfSG CbgAZfVXbcWJB7I43wi9F9Z CMwMDAw PBM7kOQ3hJ0xuCzvxoafpMB mdDsgdmVydGljYWwtYWxpZ2 55HSDujFscLrTqeTy4G0TiD zn1PTAu nEzqNX9iiGTaNDfcPt8ldJr yzIsxKM6dVDGrczvnb108Yx Kdr9utDDUhyQRrPSswXAG8T 77vc5I2 CYKlRODbRHM1eFD1bZ0deDi nbjogbGVmdDsgdmVydGljYW wwAKkiR318YPNyiGsnPbOgf GllbnQg DHyrVUz9G6XxMusfsWR+PC9 0WMDcYH00eSWtaJVkx0znsE f3KnFkNDHcPNV7wXxnDYeki 3JkZXIt G21tpVNee3N4GAVjwLgncCZ bNeSwjHY6cH8oONjtmxqmb1 nblzzaDpccc1ksed81fO20D 29sIHdp ZHRoPSIzMCUiIHZhbGlnbj0 ycN6xCx3+UYBmoVE1hDJ9jB 5tWPHrGsJ6TNbnD797YuOya CIvPjxj t0wmq7xbqTv1MdJ1MEJruqO qjEfzTRD3o7NaSl47Q98oVO dpZHRoPSIyMCUiIHZhbGlnb e5sxH8t Ii8+DCHjuWQ5hWJ2pL7gSiB rFdM3JZfsM596UiZljHOrRx vjA06wD8RyrTD+SJZlWod4B CBzdHls VE6nwUInCHhrQm6sPWR0NoF yEmKnCZbnQ9TpPVIajarqvo gyjAE2SYOfFZLcrZ24Ld5nf DogMTBw kFJTxI3xlzjck0wmafimKbK nPMZwFIz5COp2LQBpaSsgKr NsKSK4DrD2NUZ9xGNksE3ps Glnbjog rM3yI2EgZEFxcmjqYu88oR1 lJuVyYhV7HUsuMyw+V0FTSU 9RAXyxPR6LX3eVIOcoKGojc GQ+PHRk SJL4mNbcGGmwBRAmrZ2zJTW wA7c1PgVwBfH9BWkpC6TlMI PxnaypZl61wV2fDxUhNmU2P KecT2Ak otV8YOHxoWCpYIfiVGM7Q41 qj7D6XYZyQXOnIKN6gBK6iC 1hbGlnbjogbGVmdDsgdmVyd GljYWwt UFegG093MMSkrZpzTvDjCfU 0StW0QRN7V9MnMai5ORQtzN dnAR1eoLTgTAagKi4ybHtml FcdFM8p ANCnbukgYHTnpY8vBKBbrXF ovUiwBW3jJQLaegjor770Oh NoNNN6MHBywXLqH6NttE2zG iAjMDAw QPLhE0EnmRYwBErfJ625NPe nKvJ4WLZvozQyA0NvDIQuxW joSlR6s4Y8Ww35EPAJJWWjg zwvdGQ+ BUOaLOB2tKerIYtkYEHoqU4 tJSHhG2h4UpIyMwZ3UHnbO0 MsJCYagyaxNs58zL2yLbLoZ nO8ZGpt L3AqfoZ0WMGpwHYkEEbyJVB 2C27kd3E0PPZpJUMtPIZ7wU L1zM9xzSnyqdwgkCYlsZcsw mVydGlj WNzyMXyuV663NAIqoBssAk1 eeWQ2S3XpUwg4CWZukKaqVE 1ksLQzJTbqDg0ayTdihEhsJ I3tJCLi piziDOHlfY3jSRKxmFCfmWr oST4oHQHynporo095KpFeRI L6TEIbbCVnT4DfuA3tOlCaO DAwMDAw C4KxlLPxHVnwD372BMttHlZ 1OAFmoqLuZ0KsZMWtkMrsHc O8a4F7Wm1IbXZzMKAyUI27X R84TJ66 W0ZjGmgldCMhnFJ+PHRhYmx lIHdpZHRoPScxMDAlJyBzdH qjTC3tSm4yFYYfJOSptFbew HNlOiBj t9exSDQtMKkiGN9qjJrmZ7W zfHZ5GLIzf0k0Ni29Y77cA9 JvdXA+KLFusVQ3tRK5nH1wH zAlIiB2 SMcuN649DpGrkHDuPrswf7y bk3tziRq1NaHyJSQnipFjdZ zkRZL0g5LlBk77C82uSIpxX HRoPSIy UVNqQZUjmHubpx4ttU0tUj7 +YRWvuVJ8iZF8lD7uGiVoVd X9FKyrZ720PeAzcPMvOwuwL 36rJ1Rx dXA+JEBtTwg7QLLoqQqsSS2 odQOzTPyrRa8kAIW7CzIoDj DjQNstK2FbCKDzafzejcoox QM9LLAz RPHgvA38Yt4qkPooAf9cXOH yCYH7FSCqxIJlX6OljQ8nMp BxAILwNOIvZ3NkfARaDUlgE 246IGxl JrJ1QYZubqTvU1PzUSFzbOp tEfW1q7C8Ma9YuUjcpDVuWI 3gWuZuKOo7A2GdJki8CLTyl UgrHJ0o mZKyUPqmLd1ouJwpbMhkGG6 iQOLwurkgc989ZjKby9lmQX EqzFEaZEloERU1U90sy1G2T CMwMDAw YAI4pVO7rD6uyVmuorknaFW mdDsgdmVydGljYWwtYWxpZ2 51NHOsbIxeWtYHBgu9U5FwT ac8NXDj yEdzKC0qsWXcPQgoUt4zuIq zjBscHA5iRDDjsuvke633Du Zgz6urWPDtuPWtZWcaUOV7X 96cd5V8 QATnOFNhPGL9rQK4bK0ccXv nbjogbGVmdDsgdmVydGljYW qeIUnbO401IVOzaBzrYi9PU hc0J7Dd Lqq3IJAwiWriFV5aiOQqGRp bWu1rlEmgoWzpWK1rJINmja jvp603YhHqv1hgBFZyfGPyD GltZXM7 D54ja4N6VPHyEMFxMCK8fZN 3aZ2rqRzzvinpmLBacFktty JvxOiyBAtrAFseO376GQLrj DsnPlBh eWVyOjwvdGQ+KZ62ye33M8Q fGtupNeg1FQTgZGF1wXL8yF 9yJPRnVTneb6G4cLD3M5Afz xQdnh5q n4cwAMVm (more content not included)... Normal [facility] Consultation Noteon 01-25-20 23 Consultation Note [id number]#[id number] D:127 Normal [facility] CNPNon 01-23-2023 CNPN Normal [facility] Heart and Vascular Office/Cl inic Noteon [...] patient is scheduled for a Doppler ultrasound [facility], 01/22/2023. Echocardiogram is normal, but it's perhaps [...] after patient or guardian consented to allow Satinder Wilberto Sewell to record this visit. SHAMAR client relations specialist and provider reviewed before signing. SHAMAR: [...] Tab, See Instruction (more content not included)... [facility] Comment on above: Result Comment: Elec [...] Stringer M.D. Transcribed by: VEENA Technologist: ELIE [facility] CBC W Auto Differential pane l (Bld)on 01-22-2023 Basophils (Bld) [#/Vol] 0.05 10*3/uL Normal <0.11 [facility] Comment on above: Order Comment: Speci men Type: BLOOD SPECIMENOrdering Facility: [facility] Address: [address] [address] Performed By: #### 5 7021-8 ####[facility] LABCLIA [id number] [place] [address] Basophils/100 WBC (Bld) 0.5 % Normal [facility] Comment on above: Order Comment: Speci men Type: BLOOD SPECIMENOrdering Facility: [facility] Address: [address] [address] Performed By: #### 5 7021-8 ####[facility] LABCLIA [id number] [place] [address] Differential cell count method Nom (Bld) Auto Normal [facility] Comment on above: Order Comment: Speci men Type: BLOOD SPECIMENOrdering Facility: [facility] Address: [address] [address] Performed By: #### 5 7021-8 ####[facility] LABCLIA [id number] [place] [address] Eosinophils (Bld) [#/Vol] 0.12 10*3/uL Normal <0.46 [facility] Comment on above: Order Comment: Speci men Type: BLOOD SPECIMENOrdering Facility: [facility] Address: [address] [address] Performed By: #### 5 7021-8 ####[facility] LABCLIA [id number] [place] [address] Eosinophils/100 WBC (Bld) 1.3 % Normal [facility] Comment on above: Order Comment: Speci men Type: BLOOD SPECIMENOrdering Facility: [facility] Address: [address] [address] Performed By: #### 5 7021-8 ####[facility] LABCLIA [id number] [place] [address] Erythrocyte distribution width (RBC) [Ratio] 17.2 % High 11.5-15.0 [facility] Comment on above: Order Comment: Speci men Type: BLOOD SPECIMENOrdering Facility: [facility] Address: [address] [place] [address] Performed By: #### 5 7021-8 ####[facility] LABIA [id number] [place] [address] Hematocrit (Bld) [Volume fraction] 37.2 % Low 39.0-51.0 [facility] Comment on above: Order Comment: Speci men Type: BLOOD SPECIMENOrdering Facility: [facility] Address: [address] [place] [address] Performed By: #### 5 7021-8 ####[facility] LABIA [id number] [place] [address] Hemoglobin (Bld) [Mass/Vol] 12.3 g/dL Low 13.0-17.0 [facility] Comment on above: Order Comment: Speci men Type: BLOOD SPECIMENOrdering Facility: [facility] Address: [address] [place] [address] Performed By: #### 5 7021-8 ####[facility] LABIA [id number] [place] [address] Immature granulocytes (Bld) [#/Vol] 0.05 10*3/uL Normal <0.10 [facility] Comment on above: Order Comment: Speci men Type: BLOOD SPECIMENOrdering Facility: [facility] Address: [address] [place] [address] Performed By: #### 5 7021-8 ####[facility] LABIA [id number] [place] [address] Immature granulocytes/100 WBC (Bld) 0.5 % Normal [facility] Comment on above: Order Comment: Speci men Type: BLOOD SPECIMENOrdering Facility: [facility] Address: [address] [address] Performed By: #### 5 7021-8 ####[facility] LABCLIA [id number] [place] [address] Lymphocytes (Bld) [#/Vol] 0.79 10*3/uL Low 1.00-4.00 [facility] Comment on above: Order Comment: Speci men Type: BLOOD SPECIMENOrdering Facility: [facility] Address: [address] [address] Performed By: #### 5 7021-8 ####[facility] LABCLIA [id number] [place] [address] Lymphocytes/100 WBC (Bld) 8.6 % Normal [facility] Comment on above: Order Comment: Speci men Type: BLOOD SPECIMENOrdering Facility: [facility] Address: [address] [place] [address] Performed By: #### 5 7021-8 ####[facility] LABCLIA [id number] [place] [address] MCH (RBC) [Entitic mass] 33.9 pg Normal 26.0-34.0 [facility] Comment on above: Order Comment: Speci men Type: BLOOD SPECIMENOrdering Facility: [facility] Address: [address] [place] [address] Performed By: #### 5 7021-8 ####[facility] LABCLIA [id number] [place] [address] MCHC (RBC) [Mass/Vol] 33.1 g/dL Normal 30.5-36.0 [facility] Comment on above: Order Comment: Speci men Type: BLOOD SPECIMENOrdering Facility: [facility] Address: [address] [place] [address] Performed By: #### 5 7021-8 ####[facility] LABCLIA [id number] [place] [address] MCV (RBC) [Entitic vol] 102.5 fL High 80.0-100.0 [facility] Comment on above: Order Comment: Speci men Type: BLOOD SPECIMENOrdering Facility: [facility] Address: [address] [place] [address] Performed By: #### 5 7021-8 ####[facility] LABCLIA [id number] [place] [address] Monocytes (Bld) [#/Vol] 0.82 10*3/uL Normal <0.87 [facility] Comment on above: Order Comment: Speci men Type: BLOOD SPECIMENOrdering Facility: [facility] Address: [address] [place] [address] Performed By: #### 5 7021-8 ####[facility] LABCLIA [id number] [place] [address] Monocytes/100 WBC (Bld) 8.9 % Normal [facility] Comment on above: Order Comment: Speci men Type: BLOOD SPECIMENOrdering Facility: [facility] Address: [address] [place] [address] Performed By: #### 5 7021-8 ####[facility] LABCLIA [id number] [place] [address] Neutrophils (Bld) [#/Vol] 7.36 10*3/uL Normal 1.45-7.50 [facility] Comment on above: Order Comment: Speci men Type: BLOOD SPECIMENOrdering Facility: [facility] Address: [address] [place] [address] Performed By: #### 5 7021-8 ####[facility] LABCLIA [id number] [place] [address] Neutrophils/100 WBC (Bld) 80.2 % Normal [facility] Comment on above: Order Comment: Speci men Type: BLOOD SPECIMENOrdering Facility: [facility] Address: [address] [place], [place] [id number] Performed By: #### 5 7021-8 ####[facility] LABCLIA [id number] [place] [address] Nucleated RBC (Bld) [#/Vol] 10*3/uL Normal <0.01 [facility] Comment on above: Order Comment: Speci men Type: BLOOD SPECIMENOrdering Facility: [facility] Address: [address] [address] Performed By: #### 5 7021-8 ####[facility] LABCLIA [id number] [place] [address] Nucleated RBC/100 WBC (Bld) [Ratio] 0.0 /100 WBC Normal [facility] Comment on above: Order Comment: Speci men Type: BLOOD SPECIMENOrdering Facility: [facility] Address: [address] [place] [address] Performed By: #### 5 7021-8 ####[facility] LABIA [id number] [place] [address] Platelet mean volume (Bld) [Entitic vol] 10.1 fL Normal 9.0-12.7 [facility] Comment on above: Order Comment: Speci men Type: BLOOD SPECIMENOrdering Facility: [facility] Address: [address] [place] [address] Performed By: #### 5 7021-8 ####[facility] LABCLIA [id number] [place] [address] Platelets (Bld) [#/Vol] 113 10*3/uL Low 150-400 [facility] Comment on above: Order Comment: Speci men Type: BLOOD SPECIMENOrdering Facility: [facility] Address: [address] [place] [address] Performed By: #### 5 7021-8 ####[facility] LABCLIA [id number] [place] [address] RBC (Bld) [#/Vol] 3.63 10*6/uL Low 4.20-6.00 [facility] Comment on above: Order Comment: Speci men Type: BLOOD SPECIMENOrdering Facility: [facility] Address: [address] [place] [address] Performed By: #### 5 7021-8 ####[facility] LABCLIA [id number] [place] [address] WBC (Bld) [#/Vol] 9.19 10*3/uL Normal 3.70-11.00 [facility] Comment on above: Order Comment: Speci men Type: BLOOD SPECIMENOrdering Facility: [facility] Address: [address] [place] [address] Performed By: #### 5 7021-8 ####[facility] LABCLIA [id number] [place] [id number] CEA SerPl-mCncon 01-22-2023 Carcinoembryonic Ag [Mass/Vol] 2.4 ng/mL Normal <=2.9 [facility] Comment on above: Order Comment: Speci men Type: BLOOD SPECIMENOrdering Facility: [facility] Address: [address] [place] [address] Result Comment: Carc inoembryonic antigen test is used as an aid in monitoring response to treatment or recurrence in patients with established colorectal, breast, lung, prostatic, pancreatic, and ovarian carcinomas. Clinical correlation is required.The Carcinoembryonic antigen test was performed using the [employer] FTL SOLAR Unicel DXI paramagnetic particle chemiluminescent immunoassay method. Results obtained with different assay methods or kits cannot be used interchangeably. Performed By: #### 2 039-6 ####[facility] LABCLIA [id number] [place] [address] [place] CNCNPATEDon 01-22-2023 CNCNPATED Normal [facility] CNOVSPon 01-22-2023 CNOVSP Normal [facility] CNPNon 01-22-2023 CNPN Normal [facility] Comprehensive metabolic 2000 panelon 01-22-2023 Albumin [Mass/Vol] 3.8 g/dL Low 3.9-4.9 [facility] Comment on above: Order Comment: Speci men Type: BLOOD SPECIMENOrdering Facility: [facility] Address: [address] [place] [address] Performed By: #### 2 4323-8 ####[facility] LABCLIA [id number] [place] [address] ALP [Catalytic activity/Vol] 96 U/L Normal 38-113 [facility] Comment on above: Order Comment: Speci men Type: BLOOD SPECIMENOrdering Facility: [facility] Address: [address] [address] Performed By: #### 2 4323-8 ####[facility] LABCLIA [id number] [place] [address] ALT [Catalytic activity/Vol] 10 U/L Normal 10-54 [facility] Comment on above: Order Comment: Speci men Type: BLOOD SPECIMENOrdering Facility: [facility] Address: [address] [address] Performed By: #### 2 4323-8 ####[facility] LABCLIA [id number] [place] [address] Anion gap [Moles/Vol] 9 mmol/L Normal 9-18 [facility] Comment on above: Order Comment: Speci men Type: BLOOD SPECIMENOrdering Facility: [facility] Address: [address] [address] Performed By: #### 2 4323-8 ####[facility] LABCLIA [id number] [place] [address] AST [Catalytic activity/Vol] 12 U/L Low 14-40 [facility] Comment on above: Order Comment: Speci men Type: BLOOD SPECIMENOrdering Facility: [facility] Address: [address] [address] Performed By: #### 2 4323-8 ####[facility] LABCLIA [id number] [place] [address] Bilirubin [Mass/Vol] 0.9 mg/dL Normal 0.2-1.3 [facility] Comment on above: Order Comment: Speci men Type: BLOOD SPECIMENOrdering Facility: [facility] Address: [address] [place] [address] Performed By: #### 2 4323-8 ####[facility] LABCLIA [id number] [place] [address] Calcium [Mass/Vol] 9.1 mg/dL Normal 8.5-10.2 [facility] Comment on above: Order Comment: Speci men Type: BLOOD SPECIMENOrdering Facility: [facility] Address: [address] [place] [address] Performed By: #### 2 4323-8 ####[facility] LABCLIA [id number] [place] [address] Chloride [Moles/Vol] 103 mmol/L Normal 97-105 [facility] Comment on above: Order Comment: Speci men Type: BLOOD SPECIMENOrdering Facility: [facility] Address: [address] [place] [address] Performed By: #### 2 4323-8 ####[facility] LABCLIA [id number] [place] [address] CO2 [Moles/Vol] 27 mmol/L Normal 22-30 [facility] Comment on above: Order Comment: Speci men Type: BLOOD SPECIMENOrdering Facility: [facility] Address: [address] [place] [address] Performed By: #### 2 4323-8 ####[facility] LABCLIA [id number] [place] [address] Creatinine [Mass/Vol] 1.09 mg/dL Normal 0.73-1.22 [facility] Comment on above: Order Comment: Speci men Type: BLOOD SPECIMENOrdering Facility: [facility] Address: [address] [place] [address] Performed By: #### 2 4323-8 ####[facility] LABCLIA [id number] [place] [address] ESTIMATED GLOMERULAR FILTRATION RATE 73 mL/min/1.73m??? Normal >=60 [facility] Comment on above: Order Comment: Nazario brooks Type: BLOOD SPECIMENOrdering Facility: [facility] Address: [address] [place] [address] Result Comment: Rebekah mated Glomerular Filtration Rate [...] actual GFR. Performed By: #### 2 4323-8 ####[facility] LABCLIA [id number] [place] [address] Glucose [Mass/Vol] 100 mg/dL High 74-99 [facility] Comment on above: Order Comment: Nazario brooks Type: BLOOD SPECIMENOrdering Facility: [facility] Address: [address] [place] [address] Result Comment: The [place] Diabetes [employer] (ADA) provides guidance for cutoff [...] Standards of Medical Care in Diabetes 2016, [employer]. Diabetes Care. 2016.39(Suppl 1). Performed By: #### 2 4323-8 ####[facility] LABCLIA [id number] [place] [address] Potassium [Moles/Vol] 4.1 mmol/L Normal 3.7-5.1 [facility] Comment on above: Order Comment: Speci men Type: BLOOD SPECIMENOrdering Facility: [facility] Address: [address] [place] [address] Performed By: #### 2 4323-8 ####[facility] LABIA [id number] [place] [address] Protein [Mass/Vol] 6.0 g/dL Low 6.3-8.0 [facility] Comment on above: Order Comment: Speci men Type: BLOOD SPECIMENOrdering Facility: [facility] Address: [address] [place] [address] Performed By: #### 2 4323-8 ####[facility] LABIA [id number] [place] [address] Sodium [Moles/Vol] 139 mmol/L Normal 136-144 [facility] Comment on above: Order Comment: Speci men Type: BLOOD SPECIMENOrdering Facility: [facility] Address: [address] [place] [address] Performed By: #### 2 4323-8 ####[facility] LABIA [id number] [place] [address] Urea nitrogen [Mass/Vol] 17 mg/dL Normal 9-24 [facility] Comment on above: Order Comment: Speci men Type: BLOOD SPECIMENOrdering Facility: [facility] Address: [address] [place] [address] Performed By: #### 2 4323-8 ####[facility] LABIA [id number] [place] [address] Consent for Treatmenton Consent for Treatment [id number] D:127 Normal [facility] Physician Orderon 01-22-2023 Physician Order [id number]#1.00C D:127 Normal [facility] CNPNon 01-18-2023 CNPN Normal [facility] Coding Summary.on 01-18-2023 Coding Summary. CD:[id number] Ww+ PGhlYWQ+QU9CURSqB21bhKK whV0mP8NXFSxWVpybEJXWEA tHMlRrxiFyGL8bgMCpLABy IC8+FD8yXCUsAeazgMAcg3P 4fBH2E33lbk2iVVvmbCY3ZM TlWpTvskkvf4qkfWk5JHfyN mluOyBt DWOvcF88QOL2wC61Gb04fUX bsYCtp2ugmRp4KkHsSIBrCW K8iSfkMFgcj7JoZZLhJ24hm YZzl0W3 AMZezGnyvSWsOgRxjOU2sX7 dLGgbrybkl0wbvztzHuc8kk 77fZAms1M7gRH4G6EzdiG3U GJvbGQg MyysmJEWoR5gseudq9wulfm zHnWdWPMqYPm0AHl9AEZxaA szMzWeMG08EDE6FMHoeuXgC 2FsLWFs yBdjLpC8z0W5Ax8EJ2OUIrc eE5GXUOASTFvzjPI+PC90cj 14R6FhGvyhJwd4FVAmGDZ2k HJ5qK4t HWHyCNuxc1V3iPS8S9OcnfD bhc6bd3usCQOaJPisL11gnH Qgg6Y5PIIjbFG3NAUwcGvmQ iBzaG93 Oyc+IDTzwTekf6CmXtauy4n tz4xprNm9NkyfBFXjbvPcfC pgEVW3l8JzXl4jVSIvaSP1a UY0aF7f FnRhKoG4RTryR658HiGpdDI rUdqbT65eL4CzrGI+PHRyPj q8YPUlqBugIM2gM0RiBLAxb mctbGVm zBztRG6xNHZybwanSYLthN7 yFRZgG4u5JnXyKzW9TCroV6 LmKBLxuwvqRv59rK6uDvLuU dL7OYsm X7NvmmF5FKTlzHXmLVgxHFA 4G14md2U6PETpYKUxTFK2hG O2jV6uyVrqupuxqMNsuDcph mVydGlj XIrlBIfcS993DICwyDblCiQ vZGluZyBEYXRlOiAgMDMvMz EvMjAyMzwvdGQ+LIByULM1x WxlPSAn kIPqGMrbGs2drFmuqKweAI8 aPRMbkcxnECAzpM4eHIXirF WvvAacCD1dLMVvclkic822N iAxMHB0 QJTrbTDjU9KjmU5kXeNcUNF bMHMbJ7TkcZOpHVmkD828IL ipHiP9AZAyopYcB0EgXQLjl WduOiB0 w0W4Ke3Wx3UdptffM7UscNI kFtFsDoewPLt7X9TzYpdufX I+ZE89WNVvPK04HDg1BUS8s WxlPSdi JBVoM9HvqK2jCjVvUXKbJEZ kOyc+PHRhYmxlIHdpZHRoPS fcFSEoMfKepAjmLA3eQq7cN GVyLWNv xSiduVKdQpHhg3jzZELwPMi zCR5wjXhnX7DljLZ3DSQjj1 w6Wo72H03sW5PriZF+PGNvb QI5cOD3 xU9cZiRmJwN6PLmvY669BbS bwGAvKmfvi0ijs3tnwKf9Qc R6GCCghzCdfXlkPOD5u7OjK b75U49y IHdpZHRoPSIxNSUiIHZhbGl mhm8hrA9hTo6+JUHfzWA8pC T7zG4dYdJjTeP0DVnjM327B nRvcCIv Fhzes1das6hvePq7PhHmXOQ tlgIlgTlkDYJ9l2SiKi36E2 YgrHyfw2JwLfl6fz64kCIhl 6V3qMA7 Q0DwDPPmyjlikKSsvBfjXA0 pKTIlrlsvJJGkiN1hHKDrQ1 r0ZzDjTgN5WRhjM6NjbnS4X GJvbGQg RIUevFVXqZ8vagwko1ovjbt oJoWnENYiLQa2GPi1XKTbmV dkGlLaAGE3QkO0MKW8wJHjn A6jvIcn yukquJ7xXfj+KYJ7sHSrlCR ODY4vScsuhEX+FHOqBOI9eU gkSFvpCPSmoN4bGYDrX3k5Y iAwLjA1 CVlaU0XapnL2ZRPugSAoBQL tsTFBiN2vtrdmo6oyvndyYa JySEDwAAv4AMc2FPXmgPpxA iBsZWZ0 WxZ8LKG8wIPrdR5hjUxcdqe pbJ1lGcl+EznxkRgtPGJ8IN u8Q4YzWbr1SWEouGeqJC4tf GFkZGlu Zu8woMsisDwtAW2gNXKkjmz kk509BrRaj0qrGTHhbCAfZR kdTHQ3T81ds7Z4UCOaMCDcG OK8aWS9 iB0qeLceobxrfMUhqXmkkfQ vtEwvAAdfIPqgV368VORlyB sgBcOpJPi9K6FvNjs2PXFgq EvyOV3w oMTjAJcnYo3obOihkUaoAQ0 xWPIjcbxfo667EkQhq7exCU OblQMjBEdfWKD1M75dp6J6Z CMwMDAw FOW9lSM4eT0xfDqqxcfnkYP mdDsgdmVydGljYWwtYWxpZ2 76HMGvxObtPzBtfOw4B9QqS nn9MSXq yEwgZX5syKGpGKuwRw2igGu mrHmsPG1wNNCovwrzk537Ax Sfd7zuLMAhkBQhHLsjGUK5M 09ag3N4 NTCjRWWrMZW4qMM5vA3alTk nbjogbGVmdDsgdmVydGljYW miYNuzT585XYInxPjeFyHoo GllbnQg FSyoTAo3A4GwVasxzPD+PC9 1OVQxOA02vCAuqWPoe4hxlG u8GpVaXURrCSL7kWrnXMjqv 3JkZXIt X95aiWUxe4Q5AKXruYptzTO iTxSucTP3tD6tJDdagakvv8 jjkjfzAujbd9tlrb94iA51F 29sIHdp ZHRoPSIzMCUiIHZhbGlnbj0 vkC1wSt1+KDYreFH2fCJ1dA 7bTNKcDzM9APiwV389IvDyd CIvPjxj j6qlz4bauNv7HpV1XNNlfdU nwOgyRVW4h0ZbVp04D50bPA dpZHRoPSIyMCUiIHZhbGlnb y3kvL7a Ii8+ZVAmoNP0cUG3dP6lTjQ vTuF6DRwtG511UfGtyOBbGi gsY88aS0DkrWT+DDXhRdh2A CBzdHls BY7vaDGmMVyvIp6sZJO9VxH bZyOuQGxsA2XyLYRfslomki jynAR1XQImYQGouF79Cr2ln DogMTBw yAAWfQ8hsheva4grxlrpCcI rSGVwYAh5WOy3BHGhyFdeVc QoDUR6KiH7NWQ4dYAlfY2hk Glnbjog lM2jD3RvUARxtxzaOb46pE4 kShIxZuQ3PNijWwt+V0FTSU 8VWQqhII3RK4wKZMzhRZvua GQ+PHRk PDD2tPlpUBeqGGVqgQ0zYRL nZ3z4JhFnAgW9AXywQ1FwDS KopbuvBl29sR8fJgJfPcF6C DnwI0Lx yeL1LMOmuPLrMTzkAMZ9P79 zb3X5SXKbPMYgIIL1cOS5dD 1hbGlnbjogbGVmdDsgdmVyd GljYWwt CRstT973ZEFzmSljNxArLuS 4RdR1MBS0Q2IyJzs2OGOxhI drON5scTFgYMptGs6sgQkze QvnJO5c ZRBavzoaZSCrpS4bLGZlwIY zlWijGH6sXHBehpukz377Ts RoJWS7TRQfiWUmP4WgfQ4uK iAjMDAw NTVjU8ZaiMAaWTjgJ866XWm wPgY4NIHcpgDxQ0QvEPObyM klHiU3v7P1Kh99ILSYOGWgh zwvdGQ+ KPHbNEL8vShkGLyeUIBvnQ2 tVVYqJ6b3UeNjEuT1RQoxL2 DmHAYngbybIs49hO4hNzVsA dH4NWst E1DsrmC9FPYxeNVzKXkmEIL 4L74ti4I4ZREeKDTiEMR7qH Z6fN7iuGrhyamcoVTxgTyvt mVydGlj ZAzpNOryZ735UAJtwRswLs4 yrJT0G3KrOep7NKQdaEpaAM 3fjKYaYRtuOm8sbSvtlDxhT C0tLVOx yiwcRDZpsT7cFRAqeFGagLv dRX1fKLEoquccn698JnAtPC X2TYRkfRYgA9LufY5iRpGyJ DAwMDAw A3CkrCFuLJnlO018PWogHrM 5UHJhesEnT0ZuZOGamXcrPn R0k3F0Ar2JqSOfANJnUA97O D06PP96 Z8JyXxldgYRpkEF+PHRhYmx lIHdpZHRoPScxMDAlJyBzdH voBB6sLx1qVGDkNJEudLlvg HNlOiBj b8tfZSViYXmqGP9dsWkpN1Z ugCP7TRRle2w9Gb83X53hH3 JvdXA+LOYtlUO9iCQ1yZ4lC zAlIiB2 JUcuX808VdXxxSSkAgcln0r ze2yvrGe4ZfPnQOTmwdKifP jbDSY9z0SgDd21W98yMEnnO HRoPSIy XMRxGXIhsFfkyc7fbE9lGr6 +QIGplLL7yMP5sH5lAyUxBi L3PDyrE012MdUfbCWoKtohP 54lO9Vb dXA+DUFoGqk0OVYlvUhlLP2 olVDdATneBq9rFTN2LfGxOk VmZFdiY9XyNEParvzumgvzm TK8CSRn EWQrdM31Xh9dqOovJo0qZLP xNGM9MPFbhCXgU5QxgP0sAl PbQMByTWZhC0LnuFAlGDcvQ 246IGxl JvI7JFFnqzTlL7XnWSVqoWg fMeN0r0R9Io5FeUiiwNQrFD 0uUhIjWNg1W2DbUdg4PAThg FmrOO7q vFRfMIkdHa8ezCgtfNbeWL6 hBZLjmyozb791EpGxu6hjEX XngSRbVGgwYJT3R50mq1R9P CMwMDAw XHG3oKN4mO4jlPwtpgcmyII mdDsgdmVydGljYWwtYWxpZ2 20UDCsuQceDqNVTuw8R6GnW eg8QPTv sUbxDU5llEUlVPhsHs7lzSa guImvBD2lREWptuxgw024Lz Fmw6sfRFFxnHYuVYujPLE9G 95ni1E7 OAIrMTPaTDM9jAP0iA9gfNs nbjogbGVmdDsgdmVydGljYW ffNKquK836ZPAieKwbFo9SZ xu7W3Qr Iqb2GFOfhElmDP0qaRRtWPj kDt8raUbexLpqTJ8cZIHmmg kso787IxAxs6efXCBijPSqA GltZXM7 E26ay6F3UEMjPLLjHAR1hGY 1dT1brTupynlweBEliWghus JvlYsoTNehRDmlW171VCYme DsnPlBh eWVyOjwvdGQ+ZT36dm24T1G uFycyWkg3XJKpVZS4yFW2kE 4kPSMoAWqgz0U7xSR7V0Jpf hHcpp0r e6gqYFTo (more content not included)... Normal [facility] CNPNon 01-14-2023 CNPN Normal [facility] Consent for Treatmenton 12-20 Consent for Treatment [id number] D:127 Normal [facility] Consultation Noteon 01-10-20 23 Consultation Note [id number]#[id number] :127 Normal [facility] Basic metabolic 2000 panelon 01-08-2023 Anion gap [Moles/Vol] 11 mmol/L Normal 9-18 [facility] Comment on above: Order Comment: Speci men Type: BLOOD SPECIMENOrdering Facility: [facility] Address: [address] [place] [address] Performed By: #### 2 4321-2 ####[facility] LABCLIA [id number] [place] [address] Calcium [Mass/Vol] 9.3 mg/dL Normal 8.5-10.2 [facility] Comment on above: Order Comment: Speci men Type: BLOOD SPECIMENOrdering Facility: [facility] Address: [address] [id number] Performed By: #### 2 4321-2 ####[facility] LABCLIA [id number] [place] [address] Chloride [Moles/Vol] 106 mmol/L High 97-105 [facility] Comment on above: Order Comment: Speci men Type: BLOOD SPECIMENOrdering Facility: [facility] Address: [address] [place] [address] Performed By: #### 2 4321-2 ####[facility] LABCLIA [id number] [place] [address] CO2 [Moles/Vol] 25 mmol/L Normal 22-30 [facility] Comment on above: Order Comment: Speci men Type: BLOOD SPECIMENOrdering Facility: [facility] Address: [address] [place] [address] Performed By: #### 2 4321-2 ####[facility] LABCLIA [id number] [place] [address] Creatinine [Mass/Vol] 1.12 mg/dL Normal 0.73-1.22 [facility] Comment on above: Order Comment: Speci men Type: BLOOD SPECIMENOrdering Facility: [facility] Address: [address] [place] [address] Performed By: #### 2 4321-2 ####[facility] LABCLIA [id number] [place] [address] ESTIMATED GLOMERULAR FILTRATION RATE 71 mL/min/1.73m??? Normal >=60 [facility] Comment on above: Order Comment: Speci men Type: BLOOD SPECIMENOrdering Facility: [facility] Address: [address] [place] [address] Result Comment: Rebekah mated Glomerular Filtration Rate [...] actual GFR. Performed By: #### 2 4321-2 ####[facility] LABCLIA [id number] [place] [address] Glucose [Mass/Vol] 118 mg/dL High 74-99 [facility] Comment on above: Order Comment: Speci men Type: BLOOD SPECIMENOrdering Facility: [facility] Address: [address] [place] [address] Result Comment: The [place] [employer] (ADA) provides guidance for cutoff [...] Standards of Medical Care in Diabetes 2016, [place] [employer]. Diabetes Care. 2016.39(Suppl 1). Performed By: #### 2 4321-2 ####[facility] LABCLIA [id number] [place] [address] Potassium [Moles/Vol] 3.9 mmol/L Normal 3.7-5.1 [facility] Comment on above: Order Comment: Speci men Type: BLOOD SPECIMENOrdering Facility: [facility] Address: [address] [place] [address] Performed By: #### 2 4321-2 ####[facility] LABCLIA [id number] [place] [address] Sodium [Moles/Vol] 142 mmol/L Normal 136-144 [facility] Comment on above: Order Comment: Speci men Type: BLOOD SPECIMENOrdering Facility: [facility] Address: [address] [place] [address] Performed By: #### 2 4321-2 ####[facility] LABCLIA [id number] [place] [address] Urea nitrogen [Mass/Vol] 18 mg/dL Normal 9-24 [facility] Comment on above: Order Comment: Speci men Type: BLOOD SPECIMENOrdering Facility: [facility] Address: [address] [phone] Performed By: #### 2 4321-2 ####[facility] LABCLIA [id number] [place] [address] Anion gap [Moles/Vol] 11 mmol/L 9 - 18 mmol/L [facility] Calcium [Mass/Vol] 9.3 mg/dL 8.5 - 10. 2 mg/dL [facility] Chloride [Moles/Vol] 106 mmol/L High 97 - 10 5 mmol/L [facility] CO2 [Moles/Vol] 25 mmol/L 22 - 30 mmol/L [facility] Creatinine [Mass/Vol] 1.12 mg/dL 0.73 - 1.22 mg/dL [facility] Estimated Glomerular Filtration Rate 71 mL/min/1.73m >=60 mL/min/1.73 m [facility] Glucose [Mass/Vol] 118 mg/dL High 74 - 99 mg/dL [facility] Potassium [Moles/Vol] 3.9 mmol/L 3.7 - 5.1 mmol/L [facility] Sodium [Moles/Vol] 142 mmol/L 136 - 144 mmol/L [facility] Urea nitrogen [Mass/Vol] 18 mg/dL 9 - 24 mg/dL [facility] CBC W Auto Differential pane l (Bld)on 01-08-2023 Basophils (Bld) [#/Vol] 0.06 10*3/uL Normal <0.11 [facility] Comment on above: Order Comment: Speci men Type: BLOOD SPECIMENOrdering Facility: [facility] Address: [address] [place] [id number] Performed By: #### 5 7021-8 ####[facility] LABCLIA [id number] [place] [address] Basophils/100 WBC (Bld) 0.8 % Normal [facility] Comment on above: Order Comment: Speci men Type: BLOOD SPECIMENOrdering Facility: [facility] Address: [address] [address] Performed By: #### 5 7021-8 ####[facility] LABCLIA [id number] [place] [address] Differential cell count method Nom (Bld) Auto Normal [facility] Comment on above: Order Comment: Speci men Type: BLOOD SPECIMENOrdering Facility: [facility] Address: [address] [address] Performed By: #### 5 7021-8 ####[facility] LABCLIA [id number] [place] [address] Eosinophils (Bld) [#/Vol] 0.33 10*3/uL Normal <0.46 [facility] Comment on above: Order Comment: Speci men Type: BLOOD SPECIMENOrdering Facility: [facility] Address: [address] [address] Performed By: #### 5 7021-8 ####[facility] LABCLIA [id number] [place] [address] Eosinophils/100 WBC (Bld) 4.3 % Normal [facility] Comment on above: Order Comment: Speci men Type: BLOOD SPECIMENOrdering Facility: [facility] Address: [address] [address] Performed By: #### 5 7021-8 ####[facility] LABCLIA [id number] [place] [address] Erythrocyte distribution width (RBC) [Ratio] 16.3 % High 11.5-15.0 [facility] Comment on above: Order Comment: Speci men Type: BLOOD SPECIMENOrdering Facility: [facility] Address: [address] [address] Performed By: #### 5 7021-8 ####[facility] LABCLIA [id number] [place] [address] Hematocrit (Bld) [Volume fraction] 36.0 % Low 39.0-51.0 [facility] Comment on above: Order Comment: Speci men Type: BLOOD SPECIMENOrdering Facility: [facility] Address: [address] [place] [address] Performed By: #### 5 7021-8 ####[facility] LABIA [id number] [place] [address] Hemoglobin (Bld) [Mass/Vol] 11.9 g/dL Low 13.0-17.0 [facility] Comment on above: Order Comment: Speci men Type: BLOOD SPECIMENOrdering Facility: [facility] Address: [address] [place] [address] Performed By: #### 5 7021-8 ####[facility] LABIA [id number] [place] [address] Immature granulocytes (Bld) [#/Vol] 0.03 10*3/uL Normal <0.10 [facility] Comment on above: Order Comment: Speci men Type: BLOOD SPECIMENOrdering Facility: [facility] Address: [address] [place] [address] Performed By: #### 5 7021-8 ####[facility] LABIA [id number] [place] [address] Immature granulocytes/100 WBC (Bld) 0.4 % Normal [facility] Comment on above: Order Comment: Speci men Type: BLOOD SPECIMENOrdering Facility: [facility] Address: [address] [place] [address] Performed By: #### 5 7021-8 ####[facility] LABIA [id number] [place] [address] Lymphocytes (Bld) [#/Vol] 0.71 10*3/uL Low 1.00-4.00 [facility] Comment on above: Order Comment: Speci men Type: BLOOD SPECIMENOrdering Facility: [facility] Address: [address] [place] [address] Performed By: #### 5 7021-8 ####[facility] LABCLIA [id number] [place] [address] Lymphocytes/100 WBC (Bld) 9.3 % Normal [facility] Comment on above: Order Comment: Speci men Type: BLOOD SPECIMENOrdering Facility: [facility] Address: [address] [place] [address] Performed By: #### 5 7021-8 ####[facility] LABCLIA [id number] [place] [address] MCH (RBC) [Entitic mass] 33.4 pg Normal 26.0-34.0 [facility] Comment on above: Order Comment: Speci men Type: BLOOD SPECIMENOrdering Facility: [facility] Address: [address] [place] [address] Performed By: #### 5 7021-8 ####[facility] LABCLIA [id number] [place] [address] MCHC (RBC) [Mass/Vol] 33.1 g/dL Normal 30.5-36.0 [facility] Comment on above: Order Comment: Speci men Type: BLOOD SPECIMENOrdering Facility: [facility] Address: [address] [place] [address] Performed By: #### 5 7021-8 ####[facility] LABCLIA [id number] [place] [address] MCV (RBC) [Entitic vol] 101.1 fL High 80.0-100.0 [facility] Comment on above: Order Comment: Speci men Type: BLOOD SPECIMENOrdering Facility: [facility] Address: [address] [place] [address] Performed By: #### 5 7021-8 ####[facility] LABCLIA [id number] [place] [address] Monocytes (Bld) [#/Vol] 0.74 10*3/uL Normal <0.87 [facility] Comment on above: Order Comment: Speci men Type: BLOOD SPECIMENOrdering Facility: [facility] Address: [address] [address] Performed By: #### 5 7021-8 ####[facility] LABCLIA [id number] [place] [address] Monocytes/100 WBC (Bld) 9.7 % Normal [facility] Comment on above: Order Comment: Speci men Type: BLOOD SPECIMENOrdering Facility: [facility] Address: [address] [address] Performed By: #### 5 7021-8 ####[facility] LABCLIA [id number] [place] [address] Neutrophils (Bld) [#/Vol] 5.76 10*3/uL Normal 1.45-7.50 [facility] Comment on above: Order Comment: Speci men Type: BLOOD SPECIMENOrdering Facility: [facility] Address: [address] [address] Performed By: #### 5 7021-8 ####[facility] LABIA [id number] [place] [address] Neutrophils/100 WBC (Bld) 75.5 % Normal [facility] Comment on above: Order Comment: Speci men Type: BLOOD SPECIMENOrdering Facility: [facility] Address: [address] [place] [address] Performed By: #### 5 7021-8 ####[facility] LABCLIA [id number] [place] [address] Nucleated RBC (Bld) [#/Vol] 10*3/uL Normal <0.01 [facility] Comment on above: Order Comment: Speci men Type: BLOOD SPECIMENOrdering Facility: [facility] Address: [address] [place] [address] Performed By: #### 5 7021-8 ####[facility] LABCLIA [id number] [place] [address] Nucleated RBC/100 WBC (Bld) [Ratio] 0.0 /100 WBC Normal [facility] Comment on above: Order Comment: Speci men Type: BLOOD SPECIMENOrdering Facility: [facility] Address: [address] [place] [address] Performed By: #### 5 7021-8 ####[facility] LABCLIA [id number] [place] [address] Platelet mean volume (Bld) [Entitic vol] 10.1 fL Normal 9.0-12.7 [facility] Comment on above: Order Comment: Speci men Type: BLOOD SPECIMENOrdering Facility: [facility] Address: [address] [place] [address] Performed By: #### 5 7021-8 ####[facility] LABCLIA [id number] [place] [address] Platelets (Bld) [#/Vol] 176 10*3/uL Normal 150-400 [facility] Comment on above: Order Comment: Speci men Type: BLOOD SPECIMENOrdering Facility: [facility] Address: [address] [place] [address] Performed By: #### 5 7021-8 ####[facility] LABCLIA [id number] [place] [address] RBC (Bld) [#/Vol] 3.56 10*6/uL Low 4.20-6.00 [facility] Comment on above: Order Comment: Speci men Type: BLOOD SPECIMENOrdering Facility: [facility] Address: [address] [place] [address] Performed By: #### 5 7021-8 ####[facility] LABIA [id number] [place] [address] WBC (Bld) [#/Vol] 7.63 10*3/uL Normal 3.70-11.00 [facility] Comment on above: Order Comment: Speci men Type: BLOOD SPECIMENOrdering Facility: [facility] Address: [place] [address] Performed By: #### 5 7021-8 ####[facility] LABCLIA [id number] [place] [address] Basophils (Bld) [#/Vol] 0.06 10*3/uL <0.11 k/uL [facility] Basophils/100 WBC (Bld) 0.8 % [facility] Differential cell count method Nom (Bld) Auto [facility] Eosinophils (Bld) [#/Vol] 0.33 10*3/uL <0.46 k/uL [facility] Eosinophils/100 WBC (Bld) 4.3 % [facility] Erythrocyte distribution width (RBC) [Ratio] 16.3 % High 11.5 - 15.0 % [facility] Hematocrit (Bld) [Volume fraction] 36.0 % Low 39.0 - 51.0 % [facility] Hemoglobin (Bld) [Mass/Vol] 11.9 g/dL Low 13.0 - 17.0 g/dL [facility] Immature granulocytes (Bld) [#/Vol] 0.03 10*3/uL <0.10 k/uL [facility] Immature granulocytes/100 WBC (Bld) 0.4 % [facility] Lymphocytes (Bld) [#/Vol] 0.71 10*3/uL Low 1.00 - 4.00 k/uL [facility] Lymphocytes/100 WBC (Bld) 9.3 % [facility] MCH (RBC) [Entitic mass] 33.4 pg 26.0 - 34.0 pg [facility] MCHC (RBC) [Mass/Vol] 33.1 g/dL 30.5 - 36.0 g/dL [facility] MCV (RBC) [Entitic vol] 101.1 fL High 80.0 - 100.0 fL [facility] Monocytes (Bld) [#/Vol] 0.74 10*3/uL <0.87 k/uL [facility] Monocytes/100 WBC (Bld) 9.7 % [facility] Neutrophils (Bld) [#/Vol] 5.76 10*3/uL 1.45 - 7.50 k/uL [facility] Neutrophils/100 WBC (Bld) 75.5 % [facility] Nucleated RBC (Bld) [#/Vol] <0.01 k/uL [facility] Nucleated RBC/100 WBC (Bld) [Ratio] 0.0 /100 WBC [facility] Platelet mean volume (Bld) [Entitic vol] 10.1 fL 9.0 - 12.7 fL [facility] Platelets (Bld) [#/Vol] 176 10*3/uL 150 - 400 k/uL [facility] RBC (Bld) [#/Vol] 3.56 10*6/uL Low 4.20 - 6.0 0 m/uL [facility] WBC (Bld) [#/Vol] 7.63 10*3/uL 3.70 - 11.00 k/uL [facility] CNCNPATEDon 01-08-2023 CNCNPATED Normal [facility] CNOVSPon 01-08-2023 CNOVSP Normal [facility] CNPNon 12-28-2022 CNPN Normal [facility] CBC W Auto Differential pane l (Bld)on 12-25-2022 Basophils (Bld) [#/Vol] 0.06 10*3/uL Normal <0.11 [facility] Comment on above: Order Comment: Speci men Type: BLOOD SPECIMENOrdering Facility: [facility] Address: [address] [place] [address] Performed By: #### 5 7021-8 ####[facility] LABIA [id number] [place] [address] Basophils/100 WBC (Bld) 0.9 % Normal [facility] Comment on above: Order Comment: Speci men Type: BLOOD SPECIMENOrdering Facility: [facility] Address: [address] [address] Performed By: #### 5 7021-8 ####[facility] LABIA [id number] [place] [address] Differential cell count method Nom (Bld) Auto Normal [facility] Comment on above: Order Comment: Speci men Type: BLOOD SPECIMENOrdering Facility: [facility] Address: [address] [place], [place] [address] Performed By: #### 5 7021-8 ####[facility] LABCLIA [id number] [place] [address] Eosinophils (Bld) [#/Vol] 0.25 10*3/uL Normal <0.46 [facility] Comment on above: Order Comment: Speci men Type: BLOOD SPECIMENOrdering Facility: [facility] Address: [address] [place] [address] Performed By: #### 5 7021-8 ####[facility] LABCLIA [id number] [place] [address] Eosinophils/100 WBC (Bld) 3.6 % Normal [facility] Comment on above: Order Comment: Speci men Type: BLOOD SPECIMENOrdering Facility: [facility] Address: [address] [place] [address] Performed By: #### 5 7021-8 ####[facility] LABCLIA [id number] [place] [address] Erythrocyte distribution width (RBC) [Ratio] 17.8 % High 11.5-15.0 [facility] Comment on above: Order Comment: Speci men Type: BLOOD SPECIMENOrdering Facility: [facility] Address: [address] [place] [address] Performed By: #### 5 7021-8 ####[facility] LABCLIA [id number] [place] [address] Hematocrit (Bld) [Volume fraction] 39.4 % Normal 39.0-51.0 [facility] Comment on above: Order Comment: Speci men Type: BLOOD SPECIMENOrdering Facility: [facility] Address: [address] [place] [address] Performed By: #### 5 7021-8 ####[facility] LABCLIA [id number] [place] [address] Hemoglobin (Bld) [Mass/Vol] 13.2 g/dL Normal 13.0-17.0 [facility] Comment on above: Order Comment: Speci men Type: BLOOD SPECIMENOrdering Facility: [facility] Address: [address] [place] [address] Performed By: #### 5 7021-8 ####[facility] LABCLIA [id number] [place] [address] Immature granulocytes (Bld) [#/Vol] 0.05 10*3/uL Normal <0.10 [facility] Comment on above: Order Comment: Speci men Type: BLOOD SPECIMENOrdering Facility: [facility] Address: [address] [address] Performed By: #### 5 7021-8 ####[facility] LABCLIA [id number] [place] [address] Immature granulocytes/100 WBC (Bld) 0.7 % Normal [facility] Comment on above: Order Comment: Speci men Type: BLOOD SPECIMENOrdering Facility: [facility] Address: [address] [address] Performed By: #### 5 7021-8 ####[facility] LABCLIA [id number] [place] [address] Lymphocytes (Bld) [#/Vol] 0.83 10*3/uL Low 1.00-4.00 [facility] Comment on above: Order Comment: Speci men Type: BLOOD SPECIMENOrdering Facility: [facility] Address: [address] [address] Performed By: #### 5 7021-8 ####[facility] LABCLIA [id number] [place] [address] Lymphocytes/100 WBC (Bld) 11.9 % Normal [facility] Comment on above: Order Comment: Speci men Type: BLOOD SPECIMENOrdering Facility: [facility] Address: [address] [address] Performed By: #### 5 7021-8 ####[facility] LABCLIA [id number] [place] [address] MCH (RBC) [Entitic mass] 33.8 pg Normal 26.0-34.0 [facility] Comment on above: Order Comment: Speci men Type: BLOOD SPECIMENOrdering Facility: [facility] Address: [address] [place] [address] Performed By: #### 5 7021-8 ####[facility] LABCLIA [id number] [place] [address] MCHC (RBC) [Mass/Vol] 33.5 g/dL Normal 30.5-36.0 [facility] Comment on above: Order Comment: Speci men Type: BLOOD SPECIMENOrdering Facility: [facility] Address: [address] [place] [address] Performed By: #### 5 7021-8 ####[facility] LABIA [id number] [place] [address] MCV (RBC) [Entitic vol] 100.8 fL High 80.0-100.0 [facility] Comment on above: Order Comment: Speci men Type: BLOOD SPECIMENOrdering Facility: [facility] Address: [address] [place] [address] Performed By: #### 5 7021-8 ####[facility] LABCLIA [id number] [place] [address] Monocytes (Bld) [#/Vol] 0.74 10*3/uL Normal <0.87 [facility] Comment on above: Order Comment: Speci men Type: BLOOD SPECIMENOrdering Facility: [facility] Address: [address] [place] [address] Performed By: #### 5 7021-8 ####[facility] LABCLIA [id number] [place] [address] Monocytes/100 WBC (Bld) 10.6 % Normal [facility] Comment on above: Order Comment: Speci men Type: BLOOD SPECIMENOrdering Facility: [facility] Address: [address] [address] Performed By: #### 5 7021-8 ####[facility] LABCLIA [id number] [place] [address] Neutrophils (Bld) [#/Vol] 5.03 10*3/uL Normal 1.45-7.50 [facility] Comment on above: Order Comment: Speci men Type: BLOOD SPECIMENOrdering Facility: [facility] Address: [address] [address] Performed By: #### 5 7021-8 ####[facility] LABCLIA [id number] [place] [address] Neutrophils/100 WBC (Bld) 72.3 % Normal [facility] Comment on above: Order Comment: Speci men Type: BLOOD SPECIMENOrdering Facility: [facility] Address: [address] [address] Performed By: #### 5 7021-8 ####[facility] LABCLIA [id number] [place] [address] Nucleated RBC (Bld) [#/Vol] 10*3/uL Normal <0.01 [facility] Comment on above: Order Comment: Speci men Type: BLOOD SPECIMENOrdering Facility: [facility] Address: [address] [address] Performed By: #### 5 7021-8 ####[facility] LABCLIA [id number] [place] [address] Nucleated RBC/100 WBC (Bld) [Ratio] 0.0 /100 WBC Normal [facility] Comment on above: Order Comment: Speci men Type: BLOOD SPECIMENOrdering Facility: [facility] Address: [address] [place] [address] Performed By: #### 5 7021-8 ####[facility] LABCLIA [id number] [place] [address] Platelet mean volume (Bld) [Entitic vol] 10.0 fL Normal 9.0-12.7 [facility] Comment on above: Order Comment: Speci men Type: BLOOD SPECIMENOrdering Facility: [facility] Address: [address] [place] [address] Performed By: #### 5 7021-8 ####[facility] LABCLIA [id number] [place] [address] Platelets (Bld) [#/Vol] 163 10*3/uL Normal 150-400 [facility] Comment on above: Order Comment: Speci men Type: BLOOD SPECIMENOrdering Facility: [facility] Address: [address] [place] [address] Performed By: #### 5 7021-8 ####[facility] LABIA [id number] [place] [address] RBC (Bld) [#/Vol] 3.91 10*6/uL Low 4.20-6.00 [facility] Comment on above: Order Comment: Speci men Type: BLOOD SPECIMENOrdering Facility: [facility] Address: [address] [place] [address] Performed By: #### 5 7021-8 ####[facility] LABIA [id number] [place] [address] WBC (Bld) [#/Vol] 6.96 10*3/uL Normal 3.70-11.00 [facility] Comment on above: Order Comment: Speci men Type: BLOOD SPECIMENOrdering Facility: [facility] Address: [address] [place] [address] Performed By: #### 5 7021-8 ####[facility] LABIA [id number] [place] [address] Basophils (Bld) [#/Vol] 0.06 10*3/uL <0.11 k/uL [facility] Basophils/100 WBC (Bld) 0.9 % [facility] Differential cell count method Nom (Bld) Auto [facility] Eosinophils (Bld) [#/Vol] 0.25 10*3/uL <0.46 k/uL [facility] Eosinophils/100 WBC (Bld) 3.6 % [facility] Erythrocyte distribution width (RBC) [Ratio] 17.8 % High 11.5 - 15.0 % [facility] Hematocrit (Bld) [Volume fraction] 39.4 % 39.0 - 51.0 % [facility] Hemoglobin (Bld) [Mass/Vol] 13.2 g/dL 13.0 - 17.0 g/dL [facility] Immature granulocytes (Bld) [#/Vol] 0.05 10*3/uL <0.10 k/uL [facility] Immature granulocytes/100 WBC (Bld) 0.7 % [facility] Lymphocytes (Bld) [#/Vol] 0.83 10*3/uL Low 1.00 - 4.00 k/uL [facility] Lymphocytes/100 WBC (Bld) 11.9 % [facility] MCH (RBC) [Entitic mass] 33.8 pg 26.0 - 34.0 pg [facility] MCHC (RBC) [Mass/Vol] 33.5 g/dL 30.5 - 36.0 g/dL [facility] MCV (RBC) [Entitic vol] 100.8 fL High 80.0 - 100.0 fL [facility] Monocytes (Bld) [#/Vol] 0.74 10*3/uL <0.87 k/uL [facility] Monocytes/100 WBC (Bld) 10.6 % [facility] Neutrophils (Bld) [#/Vol] 5.03 10*3/uL 1.45 - 7.50 k/uL [facility] Neutrophils/100 WBC (Bld) 72.3 % [facility] Nucleated RBC (Bld) [#/Vol] <0.01 k/uL [facility] Nucleated RBC/100 WBC (Bld) [Ratio] 0.0 /100 WBC [facility] Platelet mean volume (Bld) [Entitic vol] 10.0 fL 9.0 - 12.7 fL [facility] Platelets (Bld) [#/Vol] 163 10*3/uL 150 - 400 k/uL [facility] RBC (Bld) [#/Vol] 3.91 10*6/uL Low 4.20 - 6.0 0 m/uL [facility] WBC (Bld) [#/Vol] 6.96 10*3/uL 3.70 - 11.00 k/uL [facility] CNOVSPon 12-25-2022 CNOVSP Normal [facility] metabolic 2000 panelon 12-25-2022 Albumin [Mass/Vol] 4.1 g/dL Normal 3.9-4.9 [facility] Comment on above: Order Comment: Speci men Type: BLOOD SPECIMENOrdering Facility: [facility] Address: [address] [address] Performed By: #### 2 4323-8 ####[facility] LABCLIA [id number] [place] [address] ALP [Catalytic activity/Vol] 83 U/L Normal 38-113 [facility] Comment on above: Order Comment: Speci men Type: BLOOD SPECIMENOrdering Facility: [facility] Address: [address] [address] Performed By: #### 2 4323-8 ####[facility] LABCLIA [id number] [place] [address] ALT [Catalytic activity/Vol] 7 U/L Low 10-54 [facility] Comment on above: Order Comment: Speci men Type: BLOOD SPECIMENOrdering Facility: [facility] Address: [address] [address] Performed By: #### 2 4323-8 ####[facility] LABCLIA [id number] [place] [address] Anion gap [Moles/Vol] 10 mmol/L Normal 9-18 [facility] Comment on above: Order Comment: Speci men Type: BLOOD SPECIMENOrdering Facility: [facility] Address: [address] [address] Performed By: #### 2 4323-8 ####[facility] LABCLIA [id number] [place] [address] AST [Catalytic activity/Vol] 15 U/L Normal 14-40 [facility] Comment on above: Order Comment: Speci men Type: BLOOD SPECIMENOrdering Facility: [facility] Address: [address] [place] [address] Performed By: #### 2 4323-8 ####[facility] LABCLIA [id number] [place] [address] Bilirubin [Mass/Vol] 0.5 mg/dL Normal 0.2-1.3 [facility] Comment on above: Order Comment: Speci men Type: BLOOD SPECIMENOrdering Facility: [facility] Address: [address] [place] [address] Performed By: #### 2 4323-8 ####[facility] LABIA [id number] [place] [address] Calcium [Mass/Vol] 9.6 mg/dL Normal 8.5-10.2 [facility] Comment on above: Order Comment: Speci men Type: BLOOD SPECIMENOrdering Facility: [facility] Address: [address] [place] [address] Performed By: #### 2 4323-8 ####[facility] LABCLIA [id number] [place] [address] Chloride [Moles/Vol] 105 mmol/L Normal 97-105 [facility] Comment on above: Order Comment: Speci men Type: BLOOD SPECIMENOrdering Facility: [facility] Address: [address] [place] [address] Performed By: #### 2 4323-8 ####[facility] LABCLIA [id number] [place] [address] CO2 [Moles/Vol] 28 mmol/L Normal 22-30 [facility] Comment on above: Order Comment: Speci men Type: BLOOD SPECIMENOrdering Facility: [facility] Address: [address] [place] [address] Performed By: #### 2 4323-8 ####[facility] LABCLIA [id number] [place] [address] Creatinine [Mass/Vol] 1.23 mg/dL High 0.73-1.22 [facility] Comment on above: Order Comment: Speci men Type: BLOOD SPECIMENOrdering Facility: [facility] Address: [address] [address] Performed By: #### 2 4323-8 ####[facility] LABCLIA [id number] [place] [address] ESTIMATED GLOMERULAR FILTRATION RATE 63 mL/min/1.73m??? Normal >=60 [facility] Comment on above: Order Comment: Speci men Type: BLOOD SPECIMENOrdering Facility: [facility] Address: [address] [place] [address] Result Comment: Rebekah mated Glomerular Filtration Rate [...] actual GFR. Performed By: #### 2 4323-8 ####[facility] LABCLIA [id number] [place] [address] Glucose [Mass/Vol] 86 mg/dL Normal 74-99 [facility] Comment on above: Order Comment: Speci men Type: BLOOD SPECIMENOrdering Facility: [facility] Address: [address] [place] [address] Result Comment: The [place] [employer] (ADA) provides guidance for cutoff [...] Standards of Medical Care in Diabetes 2016, [place] [employer]. Diabetes Care. 2016.39(Suppl 1). Performed By: #### 2 4323-8 ####[facility] LABCLIA [id number] [place] [address] Potassium [Moles/Vol] 4.0 mmol/L Normal 3.7-5.1 [facility] Comment on above: Order Comment: Speci men Type: BLOOD SPECIMENOrdering Facility: [facility] Address: [address] [place] [address] Performed By: #### 2 4323-8 ####[facility] LABCLIA [id number] [place] [address] Protein [Mass/Vol] 6.2 g/dL Low 6.3-8.0 [facility] Comment on above: Order Comment: Speci men Type: BLOOD SPECIMENOrdering Facility: [facility] Address: [address] [address] Performed By: #### 2 4323-8 ####[facility] LABCLIA [id number] [place] [address] Sodium [Moles/Vol] 143 mmol/L Normal 136-144 [facility] Comment on above: Order Comment: Speci men Type: BLOOD SPECIMENOrdering Facility: [facility] Address: [address] [address] Performed By: #### 2 4323-8 ####[facility] LABCLIA [id number] [place] [address] Urea nitrogen [Mass/Vol] 21 mg/dL Normal 9-24 [facility] Comment on above: Order Comment: Speci men Type: BLOOD SPECIMENOrdering Facility: [facility] Address: [address] [address] Performed By: #### 2 4323-8 ####[facility] LABCLIA [id number] [place] [address] Albumin [Mass/Vol] 4.1 g/dL 3.9 - 4.9 g/dL [facility] ALP [Catalytic activity/Vol] 83 U/L 38 - 113 U/L [facility] ALT [Catalytic activity/Vol] 7 U/L Low 10 - 54 U/L [facility] Anion gap [Moles/Vol] 10 mmol/L 9 - 18 mmol/L [facility] AST [Catalytic activity/Vol] 15 U/L 14 - 40 U/L [facility] Bilirubin [Mass/Vol] 0.5 mg/dL 0.2 - 1 .3 mg/dL [facility] Calcium [Mass/Vol] 9.6 mg/dL 8.5 - 10. 2 mg/dL [facility] Chloride [Moles/Vol] 105 mmol/L 97 - 10 5 mmol/L [facility] CO2 [Moles/Vol] 28 mmol/L 22 - 30 mmol/L [facility] Creatinine [Mass/Vol] 1.23 mg/dL High 0.73 - 1.22 mg/dL [facility] Estimated Glomerular Filtration Rate 63 mL/min/1.73m >=60 mL/min/1.73 m [facility] Glucose [Mass/Vol] 86 mg/dL 74 - 99 mg/dL [facility] Potassium [Moles/Vol] 4.0 mmol/L 3.7 - 5.1 mmol/L [facility] Protein [Mass/Vol] 6.2 g/dL Low 6.3 - 8.0 g/dL [facility] Sodium [Moles/Vol] 143 mmol/L 136 - 144 mmol/L [facility] Urea nitrogen [Mass/Vol] 21 mg/dL 9 - 24 mg/dL [facility] CNCNPATEDon 12-20-2022 CNCNPATED Normal [facility] HISTORY PHYSICALon HISTORY PHYSICAL HNO ID: [id number] Author: Mark Valladares MD Service: Interventional Radiology [...] DATE: December 20, 2022 TIME: 9:48 AM [facility] IR FLU GD JERMAINE CVA PLACEon IR FLU GD JERMAINE CVA PLACE * * *Final Report* * * DATE OF EXAM: Dec 20 2022 10:30AM [facility] 7444 - IR FLU GD JERMAINE CVA [...] report: [id number] Th (more content not included)... [facility] IR PORTOCATH PLACEMENTon IR PORTOCATH PLACEMENT * * *Final Report* * * DATE OF EXAM: Dec 20 2022 10:30AM [facility] 8966 - IR PORTOCATH PLACEMENT / PROCEDURE [...] SIR_Port_v2 The (more content not included)... Normal [facility] IR US VASCULAR ACCESS GUIDEo n 12-20-2022 IR US VASCULAR ACCESS GUIDE * * *Final Report* * * DATE OF EXAM: Dec 20 2022 10:30AM [facility] 7765 - IR US VASCULAR ACCESS GUIDE [...] Standardized report: SIR_Port_v2 (more content not included)... [facility] 12-19-2022 [facility] Telephone (AVXRPR) MERVAT DAMON ([id number]) 1950 M Date Time Provider Department 12/19/22 MILTON WARD During your visit today, we recorded the following information about you: Milton Ward RN 12/19/2022 12:16 PM Signed You are scheduled for a Mediport placement, On 12/20/2022. You are to arrive at 0900 am and Report to [facility]: [facility]: Enter through [facility] entrance. Proceed to [...] if they are not done at a [facility] facility. . Vp & General Counsel/Transportation: How will you be arriving for your procedure? Private car. You will need a responsible adult to accompany you to and from the procedure. 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 Call for any questions [phone] Allergies As of Date: 12/19/2022 (No Known [...] Encounter Status:Closed by MILTON WARD on 12/19/22 [facility] PT panel Coag (PPP)on 2022 INR Coag (PPP) [Relative time] 1.0 {INR} 0.9 - 1.3 [facility] PT Coag (PPP) [Time] 10.7 s 9.7 - 1 3.0 sec [facility] INR Coag (PPP) [Relative time] 1.0 {INR} Normal 0.9-1.3 [facility] Comment on above: Order Comment: Nazario brooks Type: BLOOD SPECIMENOrdering Facility: [facility] Address: [address] [place] [id number] Result Comment: Myrna min K Antagonist (VKA) Therapeutic Range: INR 2 to 3 (Target INR of 2.5)Note: For patients treated with VKA drugs, such as warfarin, the [employer] 2012 Guideline recommends [...] al. Chest 2012, 141:7S-47SNishimheather RA, et al. [facility] 2017, 70: 252-289 Performed By: #### 3 4528-0 ####[facility] LABIA [id number] [place] [address] [place] PT Coag (PPP) [Time] 10.7 s Normal 9.7-13.0 [facility] Comment on above: Order Comment: Nazario brooks Type: BLOOD SPECIMENOrdering Facility: [facility] Address: [place] [address] Performed By: #### 3 4528-0 ####[facility] LABIA [id number] [place] [address] [place] CEA BLDon 12-18-2022 Carcinoembryonic Ag [Mass/Vol] 1.7 ng/mL <=2.9 ng/mL [facility] CNPNon 12-18-2022 CNPN Normal [facility] Consultation Noteon 12-18-19 23 Consultation Note [id number] D:127 Normal [facility] CBC W Auto Differential pane l (Bld)on 12-17-2022 Basophils (Bld) [#/Vol] 0.04 10*3/uL Normal <0.11 [facility] Comment on above: Order Comment: Speci men Type: BLOOD SPECIMENOrdering Facility: [facility] Address: [address] [place] [address] Performed By: #### 5 7021-8 ####[facility] LABCLIA [id number] [place] [address] Basophils/100 WBC (Bld) 0.7 % Normal [facility] Comment on above: Order Comment: Speci men Type: BLOOD SPECIMENOrdering Facility: [facility] Address: [address] [place] [address] Performed By: #### 5 7021-8 ####[facility] LABCLIA [id number] [place] [address] Differential cell count method Nom (Bld) Auto Normal [facility] Comment on above: Order Comment: Speci men Type: BLOOD SPECIMENOrdering Facility: [facility] Address: [address] [place] [address] Performed By: #### 5 7021-8 ####[facility] LABCLIA [id number] [place] [address] Eosinophils (Bld) [#/Vol] 0.13 10*3/uL Normal <0.46 [facility] Comment on above: Order Comment: Speci men Type: BLOOD SPECIMENOrdering Facility: [facility] Address: [address] [place] [address] Performed By: #### 5 7021-8 ####[facility] LABCLIA [id number] [place] [address] Eosinophils/100 WBC (Bld) 2.2 % Normal [facility] Comment on above: Order Comment: Speci men Type: BLOOD SPECIMENOrdering Facility: [facility] Address: [address] [place] [address] Performed By: #### 5 7021-8 ####[facility] LABCLIA [id number] [place] [address] Erythrocyte distribution width (RBC) [Ratio] 18.9 % High 11.5-15.0 [facility] Comment on above: Order Comment: Speci men Type: BLOOD SPECIMENOrdering Facility: [facility] Address: [address] [place] [address] Performed By: #### 5 7021-8 ####[facility] LABCLIA [id number] [place] [address] Hematocrit (Bld) [Volume fraction] 38.5 % Low 39.0-51.0 [facility] Comment on above: Order Comment: Speci men Type: BLOOD SPECIMENOrdering Facility: [facility] Address: [address] [place] [address] Performed By: #### 5 7021-8 ####[facility] LABIA [id number] [place] [address] Hemoglobin (Bld) [Mass/Vol] 12.9 g/dL Low 13.0-17.0 [facility] Comment on above: Order Comment: Speci men Type: BLOOD SPECIMENOrdering Facility: [facility] Address: [address] [place] [address] Performed By: #### 5 7021-8 ####[facility] LABCLIA [id number] [place] [address] Immature granulocytes (Bld) [#/Vol] 0.05 10*3/uL Normal <0.10 [facility] Comment on above: Order Comment: Speci men Type: BLOOD SPECIMENOrdering Facility: [facility] Address: [address] [place] [address] Performed By: #### 5 7021-8 ####[facility] LABCLIA [id number] [place] [address] Immature granulocytes/100 WBC (Bld) 0.9 % Normal [facility] Comment on above: Order Comment: Speci men Type: BLOOD SPECIMENOrdering Facility: [facility] Address: [address] [place] [address] Performed By: #### 5 7021-8 ####[facility] LABCLIA [id number] [place] [address] Lymphocytes (Bld) [#/Vol] 0.63 10*3/uL Low 1.00-4.00 [facility] Comment on above: Order Comment: Speci men Type: BLOOD SPECIMENOrdering Facility: [facility] Address: [address] [place] [address] Performed By: #### 5 7021-8 ####[facility] LABCLIA [id number] [place] [address] Lymphocytes/100 WBC (Bld) 10.9 % Normal [facility] Comment on above: Order Comment: Speci men Type: BLOOD SPECIMENOrdering Facility: [facility] Address: [address] [place] [address] Performed By: #### 5 7021-8 ####[facility] LABCLIA [id number] [place] [address] MCH (RBC) [Entitic mass] 34.0 pg Normal 26.0-34.0 [facility] Comment on above: Order Comment: Speci men Type: BLOOD SPECIMENOrdering Facility: [facility] Address: [address] [place] [address] Performed By: #### 5 7021-8 ####[facility] LABCLIA [id number] [place] [address] MCHC (RBC) [Mass/Vol] 33.5 g/dL Normal 30.5-36.0 [facility] Comment on above: Order Comment: Speci men Type: BLOOD SPECIMENOrdering Facility: [facility] Address: [address] [place] [address] Performed By: #### 5 7021-8 ####[facility] LABCLIA [id number] [place] [address] MCV (RBC) [Entitic vol] 101.6 fL High 80.0-100.0 [facility] Comment on above: Order Comment: Speci men Type: BLOOD SPECIMENOrdering Facility: [facility] Address: [address] [place] [address] Performed By: #### 5 7021-8 ####[facility] LABCLIA [id number] [place] [address] Monocytes (Bld) [#/Vol] 0.64 10*3/uL Normal <0.87 [facility] Comment on above: Order Comment: Speci men Type: BLOOD SPECIMENOrdering Facility: [facility] Address: [address] [place] [address] Performed By: #### 5 7021-8 ####[facility] LABCLIA [id number] [place] [address] Monocytes/100 WBC (Bld) 11.1 % Normal [facility] Comment on above: Order Comment: Speci men Type: BLOOD SPECIMENOrdering Facility: [facility] Address: [address] [place] [address] Performed By: #### 5 7021-8 ####[facility] LABCLIA [id number] [place] [address] Neutrophils (Bld) [#/Vol] 4.30 10*3/uL Normal 1.45-7.50 [facility] Comment on above: Order Comment: Speci men Type: BLOOD SPECIMENOrdering Facility: [facility] Address: [address] [place] [address] Performed By: #### 5 7021-8 ####[facility] LABCLIA [id number] [place] [address] Neutrophils/100 WBC (Bld) 74.2 % Normal [facility] Comment on above: Order Comment: Speci men Type: BLOOD SPECIMENOrdering Facility: [facility] Address: [address] [place] [address] Performed By: #### 5 7021-8 ####[facility] LABCLIA [id number] [place] [address] Nucleated RBC (Bld) [#/Vol] 10*3/uL Normal <0.01 [facility] Comment on above: Order Comment: Speci men Type: BLOOD SPECIMENOrdering Facility: [facility] Address: [address] [place] [address] Performed By: #### 5 7021-8 ####[facility] LABIA [id number] [place] [address] Nucleated RBC/100 WBC (Bld) [Ratio] 0.0 /100 WBC Normal [facility] Comment on above: Order Comment: Speci men Type: BLOOD SPECIMENOrdering Facility: [facility] Address: [address] [place] [address] Performed By: #### 5 7021-8 ####[facility] LABCLIA [id number] [place] [address] Platelet mean volume (Bld) [Entitic vol] 10.2 fL Normal 9.0-12.7 [facility] Comment on above: Order Comment: Speci men Type: BLOOD SPECIMENOrdering Facility: [facility] Address: [address] [place] [address] Performed By: #### 5 7021-8 ####[facility] LABIA [id number] [place] [address] Platelets (Bld) [#/Vol] 200 10*3/uL Normal 150-400 [facility] Comment on above: Order Comment: Speci men Type: BLOOD SPECIMENOrdering Facility: [facility] Address: [address] [place] [address] Performed By: #### 5 7021-8 ####[facility] LABIA [id number] [place] [address] RBC (Bld) [#/Vol] 3.79 10*6/uL Low 4.20-6.00 [facility] Comment on above: Order Comment: Speci men Type: BLOOD SPECIMENOrdering Facility: [facility] Address: [address] [place] [address] Performed By: #### 5 7021-8 ####[facility] LABIA [id number] [place] [address] WBC (Bld) [#/Vol] 5.79 10*3/uL Normal 3.70-11.00 [facility] Comment on above: Order Comment: Speci men Type: BLOOD SPECIMENOrdering Facility: [facility] Address: [address] [place] [address] Performed By: #### 5 7021-8 ####[facility] LABIA [id number] [place] [address] Basophils (Bld) [#/Vol] 0.04 10*3/uL <0.11 k/uL [facility] Basophils/100 WBC (Bld) 0.7 % [facility] Differential cell count method Nom (Bld) Auto [facility] Eosinophils (Bld) [#/Vol] 0.13 10*3/uL <0.46 k/uL [facility] Eosinophils/100 WBC (Bld) 2.2 % [facility] Erythrocyte distribution width (RBC) [Ratio] 18.9 % High 11.5 - 15.0 % [facility] Hematocrit (Bld) [Volume fraction] 38.5 % Low 39.0 - 51.0 % [facility] Hemoglobin (Bld) [Mass/Vol] 12.9 g/dL Low 13.0 - 17.0 g/dL [facility] Immature granulocytes (Bld) [#/Vol] 0.05 10*3/uL <0.10 k/uL [facility] Immature granulocytes/100 WBC (Bld) 0.9 % [facility] Lymphocytes (Bld) [#/Vol] 0.63 10*3/uL Low 1.00 - 4.00 k/uL [facility] Lymphocytes/100 WBC (Bld) 10.9 % [facility] MCH (RBC) [Entitic mass] 34.0 pg 26.0 - 34.0 pg [facility] MCHC (RBC) [Mass/Vol] 33.5 g/dL 30.5 - 36.0 g/dL [facility] MCV (RBC) [Entitic vol] 101.6 fL High 80.0 - 100.0 fL [facility] Monocytes (Bld) [#/Vol] 0.64 10*3/uL <0.87 k/uL [facility] Monocytes/100 WBC (Bld) 11.1 % [facility] Neutrophils (Bld) [#/Vol] 4.30 10*3/uL 1.45 - 7.50 k/uL [facility] Neutrophils/100 WBC (Bld) 74.2 % [facility] Nucleated RBC (Bld) [#/Vol] <0.01 k/uL [facility] Nucleated RBC/100 WBC (Bld) [Ratio] 0.0 /100 WBC [facility] Platelet mean volume (Bld) [Entitic vol] 10.2 fL 9.0 - 12.7 fL [facility] Platelets (Bld) [#/Vol] 200 10*3/uL 150 - 400 k/uL [facility] RBC (Bld) [#/Vol] 3.79 10*6/uL Low 4.20 - 6.0 0 m/uL [facility] WBC (Bld) [#/Vol] 5.79 10*3/uL 3.70 - 11.00 k/uL [facility] CEA SerPl-mCncon 12-17-2022 Carcinoembryonic Ag [Mass/Vol] 1.7 ng/mL Normal <=2.9 [facility] Comment on above: Order Comment: Speci men Type: BLOOD SPECIMENOrdering Facility: [facility] Address: [address] [place] [address] Result Comment: Carc inoembryonic antigen test is [...] used interchangeably. Performed By: #### 2 039-6 ####[facility] LABCLIA [id number] [place] [address] [place] CNOVSPon 12-17-2022 CNOVSP Normal [facility] CNPNon 12-17-2022 CNPN Normal [facility] Comprehensive metabolic 2000 panelon 12-17-2022 Albumin [Mass/Vol] 4.0 g/dL Normal 3.9-4.9 [facility] Comment on above: Order Comment: Speci men Type: BLOOD SPECIMENOrdering Facility: [facility] Address: [address] [address] Performed By: #### 2 4323-8 ####[facility] LABCLIA [id number] [place] [address] ALP [Catalytic activity/Vol] 79 U/L Normal 38-113 [facility] Comment on above: Order Comment: Speci men Type: BLOOD SPECIMENOrdering Facility: [facility] Address: [address] [address] Performed By: #### 2 4323-8 ####[facility] LABCLIA [id number] [place] [address] ALT [Catalytic activity/Vol] 8 U/L Low 10-54 [facility] Comment on above: Order Comment: Speci men Type: BLOOD SPECIMENOrdering Facility: [facility] Address: [address] [address] Performed By: #### 2 4323-8 ####[facility] LABCLIA [id number] [place] [address] Anion gap [Moles/Vol] 5 mmol/L Low 9-18 [facility] Comment on above: Order Comment: Speci men Type: BLOOD SPECIMENOrdering Facility: [facility] Address: [address] [address] Performed By: #### 2 4323-8 ####[facility] LABCLIA [id number] [place] [address] AST [Catalytic activity/Vol] 14 U/L Normal 14-40 [facility] Comment on above: Order Comment: Speci men Type: BLOOD SPECIMENOrdering Facility: [facility] Address: [address] [place] [address] Performed By: #### 2 4323-8 ####[facility] LABCLIA [id number] [place] [address] Bilirubin [Mass/Vol] 0.4 mg/dL Normal 0.2-1.3 [facility] Comment on above: Order Comment: Speci men Type: BLOOD SPECIMENOrdering Facility: [facility] Address: [address] [place] [address] Performed By: #### 2 4323-8 ####[facility] LABCLIA [id number] [place] [address] Calcium [Mass/Vol] 9.1 mg/dL Normal 8.5-10.2 [facility] Comment on above: Order Comment: Speci men Type: BLOOD SPECIMENOrdering Facility: [facility] Address: [address] [place] [address] Performed By: #### 2 4323-8 ####[facility] LABCLIA [id number] [place] [address] Chloride [Moles/Vol] 107 mmol/L High 97-105 [facility] Comment on above: Order Comment: Speci men Type: BLOOD SPECIMENOrdering Facility: [facility] Address: [address] [place] [address] Performed By: #### 2 4323-8 ####[facility] LABCLIA [id number] [place] [address] CO2 [Moles/Vol] 28 mmol/L Normal 22-30 [facility] Comment on above: Order Comment: Speci men Type: BLOOD SPECIMENOrdering Facility: [facility] Address: [address] [address] Performed By: #### 2 4323-8 ####[facility] LABCLIA [id number] [place] [address] Creatinine [Mass/Vol] 1.22 mg/dL Normal 0.73-1.22 [facility] Comment on above: Order Comment: Speci men Type: BLOOD SPECIMENOrdering Facility: [facility] Address: [address] [place] [address] Performed By: #### 2 4323-8 ####[facility] LABCLIA [id number] [place] [address] ESTIMATED GLOMERULAR FILTRATION RATE 64 mL/min/1.73m??? Normal >=60 [facility] Comment on above: Order Comment: Speci men Type: BLOOD SPECIMENOrdering Facility: [facility] Address: [address] [place] [address] Result Comment: Rebekah mated Glomerular Filtration Rate [...] actual GFR. Performed By: #### 2 4323-8 ####[facility] LABCLIA [id number] [place] [address] Glucose [Mass/Vol] 84 mg/dL Normal 74-99 [facility] Comment on above: Order Comment: Speci men Type: BLOOD SPECIMENOrdering Facility: [facility] Address: [address] [place] [address] Result Comment: The [place] [employer] (ADA) provides guidance for cutoff [...] Standards of Medical Care in Diabetes 2016, [employer]. Diabetes Care. 2016.39(Suppl 1). Performed By: #### 2 4323-8 ####[facility] LABCLIA [id number] [place] [address] Potassium [Moles/Vol] 4.0 mmol/L Normal 3.7-5.1 [facility] Comment on above: Order Comment: Speci men Type: BLOOD SPECIMENOrdering Facility: [facility] Address: [address] [place] [address] Performed By: #### 2 4323-8 ####[facility] LABIA [id number] [place] [address] Protein [Mass/Vol] 6.2 g/dL Low 6.3-8.0 [facility] Comment on above: Order Comment: Speci men Type: BLOOD SPECIMENOrdering Facility: [facility] Address: [address] [place] [address] Performed By: #### 2 4323-8 ####[facility] LABCLIA [id number] [place] [address] Sodium [Moles/Vol] 140 mmol/L Normal 136-144 [facility] Comment on above: Order Comment: Speci men Type: BLOOD SPECIMENOrdering Facility: [facility] Address: [address] [address] Performed By: #### 2 4323-8 ####[facility] LABCLIA [id number] [place] [address] Urea nitrogen [Mass/Vol] 19 mg/dL Normal 9-24 [facility] Comment on above: Order Comment: Speci men Type: BLOOD SPECIMENOrdering Facility: [facility] Address: [place] [address] Performed By: #### 2 4323-8 ####[facility] LABCLIA [id number] [place] [address] Albumin [Mass/Vol] 4.0 g/dL 3.9 - 4.9 g/dL [facility] ALP [Catalytic activity/Vol] 79 U/L 38 - 113 U/L [facility] ALT [Catalytic activity/Vol] 8 U/L Low 10 - 54 U/L [facility] Anion gap [Moles/Vol] 5 mmol/L Low 9 - 18 mmol/L [facility] AST [Catalytic activity/Vol] 14 U/L 14 - 40 U/L [facility] Bilirubin [Mass/Vol] 0.4 mg/dL 0.2 - 1 .3 mg/dL [facility] Calcium [Mass/Vol] 9.1 mg/dL 8.5 - 10. 2 mg/dL [facility] Chloride [Moles/Vol] 107 mmol/L High 97 - 10 5 mmol/L [facility] CO2 [Moles/Vol] 28 mmol/L 22 - 30 mmol/L [facility] Creatinine [Mass/Vol] 1.22 mg/dL 0.73 - 1.22 mg/dL [facility] Estimated Glomerular Filtration Rate 64 mL/min/1.73m >=60 mL/min/1.73 m [facility] Glucose [Mass/Vol] 84 mg/dL 74 - 99 mg/dL [facility] Potassium [Moles/Vol] 4.0 mmol/L 3.7 - 5.1 mmol/L [facility] Protein [Mass/Vol] 6.2 g/dL Low 6.3 - 8.0 g/dL [facility] Sodium [Moles/Vol] 140 mmol/L 136 - 144 mmol/L [facility] Urea nitrogen [Mass/Vol] 19 mg/dL 9 - 24 mg/dL [facility] Consultation Noteon 12-14-19 Consultation Note [id number]#1.00C D:127 Normal [facility] CNOVon 12-10-2022 CNOV Normal [facility] CT ABD/PEL W IVCONon 023 CT ABD/PEL W IVCON Normal [facility] CT CHEST W IVCONon 3 CT CHEST W IVCON Normal [facility] Consultation Noteon 11-24-19 Consultation Note [id number] D:127 Normal [facility] CBC w/Indiceson 11-16-2022 Erythrocyte distribution width (RBC) [Ratio] 18.5 % High 10.9-14.2 [facility] Comment on above: Performed By: #### 2 757374, [id number], 8547733, [id number] ####[facility] [address] [place] [address] Hematocrit (Bld) [Volume fraction] 39.8 % Normal 37.7-49.0 [facility] Comment on above: Performed By: #### 2 746604, [id number], 3228101, [id number] ####[facility] [address] [place] [address] Hemoglobin (Bld) [Mass/Vol] 13.0 g/dL Low 13.5-17.5 [facility] Comment on above: Performed By: #### 2 453348, 73518497, 4755863, [id number] ####[facility] [address] [place] [address] MCH (RBC) [Entitic mass] 32.3 pg Normal 27.0-34.0 [facility] Comment on above: Performed By: #### 2 670869, 40532249, 6419392, 51785609 ####[facility] [address] [place] [address] MCHC (RBC) [Mass/Vol] 32.6 g/dL Normal 31.4-36.0 [facility] Comment on above: Performed By: #### 2 711614, 42585921, 6629475, [id number] ####[facility] [address] [place] [address] MCV (RBC) [Entitic vol] 99.3 fL Normal 80.0-100.0 [facility] Comment on above: Performed By: #### 2 125604, 55112556, 1146648, 79817930 ####[address] [address] Platelet mean volume (Bld) [Entitic vol] 8.3 fL Normal 6.4-10.8 [facility] Comment on above: Performed By: #### 2 915692, 09961597, 1665319, 75599984 ####[address] [address] Platelets (Bld) [#/Vol] 178.0 E9/L Normal 150.0-500.0 [facility] Comment on above: Performed By: #### 2 413856, 00362609, 2051140, 43116677 ####[address] [address] RBC (Bld) [#/Vol] 4.0 E12/L Low 4.3-5.9 [facility] Comment on above: Performed By: #### 2 782266, 49574514, 6218907, 27548435 ####[address] [address] WBC corrected for nucl RBC Auto (Bld) [#/Vol] 6.4 E9/L Normal 4.0-11.0 [facility] Comment on above: Performed By: #### 2 443666, 90223543, 8351030, 34637834 ####[address] [address] CHEMISTRYOrdered By: SYSTEM SYSTEM on 11-16-2022 Albumin [...] 31 mmol/L Normal 21 - 31 mmol/L [facility] Creatinine [Mass/Vol] 1.4 mg/dL High 0.5 - 1.3 mg/dL [facility] GFR/1.73 sq M.predicted among blacks MDRD (S/P/Bld) [Vol rate/Area] mL/min/1.73 m2 Normal >=59mL/min/ 1.73 m2 [facility] Chem S GFR/1.73 sq M.predicted among non-blacks MDRD (S/P/Bld) [Vol rate/Area] 50 mL/min/1.73 m2 Low >=59mL/min/ 1.73 m2 [facility] Chem S Globulin (S) [Mass/Vol] 2.3 g/dL Normal 1.4 - 4.0 gm/dL [facility] Glucose [Mass/Vol] 102 mg/dL Normal 55 - 199 mg/dL [facility] Potassium [Moles/Vol] 3.7 mmol/L Normal 3.5 - 5.3 mmol/L [facility] Protein [Mass/Vol] 6.2 g/dL Normal 6.0 - 7.8 gm/dL [facility] Sodium [Moles/Vol] 142 mmol/L Normal 135 - 145 mmol/L [facility] Urea nitrogen [Mass/Vol] 17 mg/dL Normal 5 - 21 mg/dL [facility] Urea nitrogen/Creatinine [Mass ratio] 12 mg/mg Normal 10 - 20 [facility] Remisol CMPon 11-16-2022 Albumin [Mass/Vol] 3.9 g/dL Normal 3.3-5.0 [facility] Comment on above: Performed By: #### 2 037603, [id number], 3011185, [id number] ####[facility] [address] [place] [address] Albumin/Globulin (S) [Mass conc ratio] 1.7 Normal 1.1-2.2 [facility] Comment on above: Performed By: #### 2 299903, 33777564, 9532886, [id number] ####[facility] [address] [place] [address] ALP [Catalytic activity/Vol] 58 Int._Unit/L Normal 21-98 [facility] Comment on above: Performed By: #### 2 399217, 76305537, 0130700, [id number] ####[facility] [address] [place] [address] ALT No additional P-5'-P [Catalytic activity/Vol] 16 Int._Unit/L Normal 6-46 [facility] Comment on above: Performed By: #### 2 140090, 78565472, 4363978, 39461445 ####[facility] [address] [place] [address] Anion gap [Moles/Vol] 10 mmol/L Normal 6-16 [facility] Comment on above: Performed By: #### 2 043549, 61412881, 7948428, 81446059 ####[facility] [address] [place] [address] AST [Catalytic activity/Vol] 19 Int._Unit/L Normal 5-43 [facility] Comment on above: Performed By: #### 2 767858, 23291678, 7224073, 21887824 ####[facility] [address] [place] [address] Bilirubin [Mass/Vol] 1.0 mg/dL Normal 0.0-1.1 [facility] Comment on above: Performed By: #### 2 148287, 57115144, 6077935, 36732076 ####[facility] [address] [place] [address] Calcium [Mass/Vol] 9.3 mg/dL Normal 8.9-11.1 [facility] Comment on above: Performed By: #### 2 547331, 25274902, 8210593, 83876210 ####[facility] [address] [place] [address] Chloride [Moles/Vol] 105 mmol/L Normal 101-111 [facility] Comment on above: Performed By: #### 2 645988, 20081639, 9573861, 62911431 ####[facility] [address] [place] [address] CO2 [Moles/Vol] 31 mmol/L Normal 21-31 [facility] Comment on above: Performed By: #### 2 352751, 42702876, 6453125, 36517482 ####[facility] [address] [place] [address] Creatinine [Mass/Vol] 1.4 mg/dL High 0.5-1.3 [facility] Comment on above: Performed By: #### 2 805232, 06872253, 0207066, 66711398 ####[facility] [address] [place] [address] Globulin (S) [Mass/Vol] 2.3 g/dL Normal 1.4-4.0 [facility] Comment on above: Performed By: #### 2 889999, 25937666, 5306342, 47531870 ####[facility] [address] [place] [address] Glucose [Mass/Vol] 102 mg/dL Normal 55-199 [facility] Comment on above: Result Comment: If t his glucose result represents a fasting glucose, interpretation should refer to the following reference range: 55-99 mg/dL Performed By: #### 2 724945, 81606049, 3793932, 29408927 ####[facility] [address] [place] [address] Potassium [Moles/Vol] 3.7 mmol/L Normal 3.5-5.3 [facility] Comment on above: Performed By: #### 2 954628, 23563116, 3906270, 78620958 ####[facility] [address] [place] [address] Protein [Mass/Vol] 6.2 g/dL Normal 6.0-7.8 [facility] Comment on above: Performed By: #### 2 831776, 74741660, 1198157, 26638369 ####[facility] [address] [place] [address] Sodium [Moles/Vol] 142 mmol/L Normal 135-145 [facility] Comment on above: Performed By: #### 2 736956, 78708448, 6837957, 62524177 ####[facility] [address] [place] [address] Urea nitrogen [Mass/Vol] 17 mg/dL Normal 5-21 [facility] Comment on above: Performed By: #### 2 955836, 76118429, 8545265, 91000374 ####[facility] [address] [place] [address] Urea nitrogen/Creatinine [Mass ratio] 12 No Units Normal 10-20 [facility] Comment on above: Performed By: #### 2 349625, 35447615, 0857002, 66689770 ####[facility] [address] [place] [address] HEMATOLOGYOrdered By: Sonam Aponte on 11-16-2022 Erythrocyte distribution width (RBC) [Ratio] 18.5 % High 10.9 - 14.2 % [facility] HemeAutoSS Hematocrit (Bld) [Volume fraction] 39.8 % [...] 4.0 E12/L Low 4.3 - 5.9 E12/L [facility] Sed Rate Automated 8 mm/h Normal 0 - 19 mm/hr [facility] WBC corrected for nucl RBC Auto (Bld) [#/Vol] 6.4 E9/L Normal 4.0 - 11.0 E9/L [facility] HemeAutoSS Sed Rate Automatedon 023 Sed Rate Automated 8 mm/hr Normal 0-19 [facility] Comment on above: Performed By: #### 2 256625, 41137358, 4026423, 41945259 ####[facility] [address] [place] [address] eGFRon 11-16-2022 GFR/1.73 sq M.predicted among blacks MDRD (S/P/Bld) [Vol rate/Area] mL/min/{1.73_m2} Normal >=59 [facility] Comment on above: Order Comment: Order added by Discern Expert. Result Comment: eGFR is race adjusted. AA=. Performed By: #### 2 708121, 82650918, 0752746, 21238234 ####[facility] [address] [place] [address] GFR/1.73 sq M.predicted among non-blacks MDRD (S/P/Bld) [Vol rate/Area] 50 mL/min/1.73 m2 Low >=59 [facility] Comment on above: Order Comment: Order added by Discern Expert. Result Comment: Program Counselor bethany kidney disease could be indicated at eGFR's of less than 60 mL/min/1.73m2. Kidney failure is indicated at less than 15 mL/min/1.73m2. Performed By: #### 2 435905, 78374022, 9878819, 28075006 ####[facility] [address] [place] [address] CBC W Auto Differential pane l (Bld)on 11-08-2022 Basophils (Bld) [#/Vol] 0.04 10*3/uL <0.11 k/uL [facility] Basophils/100 WBC (Bld) 0.7 % [facility] Differential cell count method Nom (Bld) Auto [facility] Eosinophils (Bld) [#/Vol] 0.18 10*3/uL <0.46 k/uL [facility] Eosinophils/100 WBC (Bld) 3.1 % [facility] Erythrocyte distribution width (RBC) [Ratio] 17.3 % High 11.5 - 15.0 % [facility] Hematocrit (Bld) [Volume fraction] 36.9 % Low 39.0 - 51.0 % [facility] Hemoglobin (Bld) [Mass/Vol] 12.3 g/dL Low 13.0 - 17.0 g/dL [facility] Immature granulocytes (Bld) [#/Vol] 0.04 10*3/uL <0.10 k/uL [facility] Immature granulocytes/100 WBC (Bld) 0.7 % [facility] Lymphocytes (Bld) [#/Vol] 0.34 10*3/uL Low 1.00 - 4.00 k/uL [facility] Lymphocytes/100 WBC (Bld) 5.9 % [facility] MCH (RBC) [Entitic mass] 32.5 pg 26.0 - 34.0 pg [facility] MCHC (RBC) [Mass/Vol] 33.3 g/dL 30.5 - 36.0 g/dL [facility] MCV (RBC) [Entitic vol] 97.4 fL 80.0 - 100.0 fL [facility] Monocytes (Bld) [#/Vol] 0.55 10*3/uL <0.87 k/uL [facility] Monocytes/100 WBC (Bld) 9.5 % [facility] Neutrophils (Bld) [#/Vol] 4.62 10*3/uL 1.45 - 7.50 k/uL [facility] Neutrophils/100 WBC (Bld) 80.1 % [facility] Nucleated RBC (Bld) [#/Vol] <0.01 k/uL [facility] Nucleated RBC/100 WBC (Bld) [Ratio] 0.0 /100 WBC [facility] Platelet mean volume (Bld) [Entitic vol] 9.3 fL 9.0 - 12.7 fL [facility] Platelets (Bld) [#/Vol] 157 10*3/uL 150 - 400 k/uL [facility] RBC (Bld) [#/Vol] 3.79 10*6/uL Low 4.20 - 6.0 0 m/uL [facility] WBC (Bld) [#/Vol] 5.77 10*3/uL 3.70 - 11.00 k/uL [facility] Consultation Noteon 11-02-19 Consultation Note [id number] D:127 Normal [facility] CBC W Auto Differential pane l (Bld)on 10-11-2022 Basophils (Bld) [#/Vol] <0.11 k/uL [facility] Basophils/100 WBC (Bld) 0.1 % [facility] Differential cell count method Nom (Bld) Auto [facility] Eosinophils (Bld) [#/Vol] <0.46 k/uL [facility] Eosinophils/100 WBC (Bld) 0.0 % [facility] Erythrocyte distribution width (RBC) [Ratio] 15.5 % High 11.5 - 15.0 % [facility] Hematocrit (Bld) [Volume fraction] 42.6 % 39.0 - 51.0 % [facility] Hemoglobin (Bld) [Mass/Vol] 14.0 g/dL 13.0 - 17.0 g/dL [facility] Immature granulocytes (Bld) [#/Vol] 0.12 10*3/uL High <0.10 k/uL [facility] Immature granulocytes/100 WBC (Bld) 0.6 % [facility] Lymphocytes (Bld) [#/Vol] 0.82 10*3/uL Low 1.00 - 4.00 k/uL [facility] Lymphocytes/100 WBC (Bld) 4.0 % [facility] MCH (RBC) [Entitic mass] 31.0 pg 26.0 - 34.0 pg [facility] MCHC (RBC) [Mass/Vol] 32.9 g/dL 30.5 - 36.0 g/dL [facility] MCV (RBC) [Entitic vol] 94.5 fL 80.0 - 100.0 fL [facility] Monocytes (Bld) [#/Vol] 1.01 10*3/uL High <0.87 k/uL [facility] Monocytes/100 WBC (Bld) 4.9 % [facility] Neutrophils (Bld) [#/Vol] 18.55 10*3/uL High 1.45 - 7.50 k/uL [facility] Neutrophils/100 WBC (Bld) 90.4 % [facility] Nucleated RBC (Bld) [#/Vol] <0.01 k/uL [facility] Nucleated RBC/100 WBC (Bld) [Ratio] 0.0 /100 WBC [facility] Platelet mean volume (Bld) [Entitic vol] 10.9 fL 9.0 - 12.7 fL [facility] Platelets (Bld) [#/Vol] 207 10*3/uL 150 - 400 k/uL [facility] RBC (Bld) [#/Vol] 4.51 10*6/uL 4.20 - 6.0 0 m/uL [facility] WBC (Bld) [#/Vol] 20.52 10*3/uL High 3.70 - 11.00 k/uL [facility] Comprehensive metabolic 2000 panelon 10-11-2022 Albumin [Mass/Vol] 3.9 g/dL 3.9 - 4.9 g/dL [facility] ALP [Catalytic activity/Vol] 80 U/L 38 - 113 U/L [facility] ALT [Catalytic activity/Vol] 10 U/L 10 - 54 U/L [facility] Anion gap [Moles/Vol] 11 mmol/L 9 - 18 mmol/L [facility] AST [Catalytic activity/Vol] 11 U/L Low 14 - 40 U/L [facility] Bilirubin [Mass/Vol] 1.0 mg/dL 0.2 - 1 .3 mg/dL [facility] Calcium [Mass/Vol] 9.5 mg/dL 8.5 - 10. 2 mg/dL [facility] Chloride [Moles/Vol] 104 mmol/L 97 - 10 5 mmol/L [facility] CO2 [Moles/Vol] 26 mmol/L 22 - 30 mmol/L [facility] Creatinine [Mass/Vol] 1.50 mg/dL High 0.73 - 1.22 mg/dL [facility] Estimated Glomerular Filtration Rate 50 mL/min/1.73m Low >=60 mL/min/1.73 m [facility] Glucose [Mass/Vol] 136 mg/dL High 74 - 99 mg/dL [facility] Potassium [Moles/Vol] 4.3 mmol/L 3.7 - 5.1 mmol/L [facility] Protein [Mass/Vol] 6.1 g/dL Low 6.3 - 8.0 g/dL [facility] Sodium [Moles/Vol] 141 mmol/L 136 - 144 mmol/L [facility] Urea nitrogen [Mass/Vol] 30 mg/dL High 9 - 24 mg/dL [facility] ANES POSTPROC EVALon 022 ANES POSTPROC EVAL HNO ID: [id number] Author: Mk Salmeron DO Service: Anesthesiology Author Type: Anesthesiologist Type: Anesthesia Postprocedure Evaluation Filed: 10/10/2022 3:10 PM Note Text: POST ANESTHESIA EVALUATION NOTE : 1950 Procedure Summary Date: 10/10/22 Room / [facility] Anesthesia Start: 1313 Anesthesia Stop: 1415 Procedure: [...] October 10, 2022 TIME: 3:09 PM CSN: [id number] [facility] ANES PRE-OPon 10-10-2022 ANES PRE-OP HNO ID: [id number] Author: Zeyad House MD Service: Anesthesiology Author [...] and consent discussed: yes. Patient / Responsible Alliance Party agrees to proceed: yes Patient / [...] October 10, 2022 TIME: 12:31 PM CSN: [id number] [facility] CYTOLOGY NON-GYNon 2 ADEQUACY INTERPRETATION Normal [facility] Comment on above: Order Comment: Speci men Type: SPECIMEN OBTAINED BY ASPIRATION Ordering Facility: [facility] Address: [address] [place] [address] Result Comment: A: # 1,2 Lymphoid sample B: #1 Limited lymphoid sample #2 Non-diagnostic #3,4 Lymphoid sample C: #1 Non-diagnostic #2 Limited lymphoid sample with possible rare granuloma Dr. Sean Terry/Pino Christian reported onsite to Dr. Maier Each letter in the above intra-procedural assessment refers to a unique site. The specific site is indicated in the final diagnosis portion of the report. Each number in this assessment references a discrete evaluation episode. Intra-procedural assessment performed at [facility], [address] [place] [address] Performed By: #### C YTONON #### [facility] CLIA [id number] [address] [place] [address] [place] [facility] CASE REPORT [facility] Comment on above: Order Comment: Speci men Type: SPECIMEN OBTAINED BY ASPIRATION Ordering Facility: [facility] Address: [address] [place] [address] Result Comment: [facility] Cytology Report Case: [id number] Authorizing Provider: Hang Maier MD Collected: 10/10/2022 01:18 PM Ordering Location: [facility] Received: 10/10/2022 03:13 PM Endoscopy - ENDO Pathologist: Jose G Terry MD Specimens: A) - EBUS TRANSBRONCHIAL FINE NEEDLE ASPIRATE, LYMPH NODE, STATION 7 B) - EBUS TRANSBRONCHIAL FINE NEEDLE ASPIRATE, LYMPH NODE, 4R C) - EBUS TRANSBRONCHIAL FINE NEEDLE ASPIRATE, LYMPH NODE, 11RS Performed By: #### C YTONON #### [facility] CLIA [id number] [address] [place] [address] CLINICAL HISTORY Adenocarcinoma of th e lower rectum Normal [facility] Comment on above: Order Comment: Speci men Type: SPECIMEN OBTAINED BY ASPIRATION Ordering Facility: [facility] Address: [address] [place] [address] Performed By: #### C YTONON #### [facility] CLIA [id number] [address] [place] [address] DIAGNOSIS COMMENT C. The specimen consists of loose clusters of histiocytes, but no definitive granulomas identified. As a result, specials stains are not performed. Normal [facility] Comment on above: Order Comment: Speci men Type: SPECIMEN OBTAINED BY ASPIRATION Ordering Facility: [facility] Address: [address] [place] [address] Performed By: #### C YTONON #### [facility] CLIA [id number] [address] [place] [address] FINAL DIAGNOSIS Normal [facility] Comment on above: Order Comment: Speci men Type: SPECIMEN OBTAINED BY ASPIRATION Ordering Facility: [facility] Address: [address] [place] [address] Result Comment: A - EBUS TRANSBRONCHIAL FINE [...] Fixed Performed By: #### C YTONON #### [facility] CLIA [id number] [address] [place] [address] FINAL PERFORMING LAB Normal [facility] Comment on above: Order Comment: Speci men Type: SPECIMEN OBTAINED BY ASPIRATION Ordering Facility: [facility] Address: [address] [place] [address] Result Comment: Tech nical component, paraffin plant operator screening performed at [facility], [address] [place] [address] CLIA# [id number] Diagnostic interpretation performed at [facility], [address] [place] [address] CLIA# [id number] Bank Teller: Brett Escalera M.D. Performed By: #### C YTONON #### [facility] CLIA [id number] [address] [place] [address] GROSS DESCRIPTION Normal [facility] Comment on above: Order Comment: Speci men Type: SPECIMEN OBTAINED BY ASPIRATION Ordering Facility: [facility] Address: [address] [place] [address] Result Comment: A. E BUS TRANSBRONCHIAL FINE NEEDLE ASPIRATE, LYMPH NODE 30 cc clear colorless CytoLyt with particles. ThinPrep and Cell Block prepared and 4 smears (2 air dried and 2 fixed). Performed By: #### C YTONON #### [facility] CLIA [id number] [address] [place] [address] STATES OF [facility] ORDER COMMENT Normal [facility] Comment on above: Order Comment: Speci men Type: SPECIMEN OBTAINED BY ASPIRATION Ordering Facility: [facility] Address: [address] [place] [address] Result Comment: Pre- op diagnosis: Adenopathy [R59.9] Performed By: #### C YTONON #### [facility] CLIA [id number] [address] [place] [address] [place] NURSING PROGon 10-10-2022 NURSING PROG HNO ID: [id number] Author: Oliva Alcantara RN Service: Nursing Author [...] (RECOMMENDATION): None Electronically Signed By: Oliva Alcantara [facility] Yaron 10-09-2022 [facility] Telephone (FVENDO) MERVAT DAMON ([id number]) 1950 M Date Time Provider Department 10/09/22 HANG MAIER During your visit today, we recorded the following information about you: Vito Herediaur 10/09/2022 11:58 AM Signed Spoke with the patient confirmed noon arrival time for 1 pm appointment at [facility] Candicejuan jkeiry [place] Allergies As of Date: 10/09/2022 [...] Status:Closed by VITO DEL CASTILLO on 10/09/22 [facility] HISTORY PHYSICALon HISTORY PHYSICAL HNO ID: [id number] Author: Hang Maier MD Service: ? Author Type: Physician Type: HANDP Filed: 10/08/2022 3:58 PM Note Text: VIRTUAL VISIT PROGRESS NOTE This is a virtual visit using Thinkature video visit. It required patient-provider interaction for [...] to acq (more content not included)... Normal [facility] MR abdomen wo/w conon 2021 MR abdomen wo/w con [facility] Main [place] [address] [place] [address] MRI Report Signed Patient: Mervat Damon MR#: [id number] : 1950 Acct:[id number] Age/Sex: 71 / M ADM Date: 10/01/22 Loc: Room: Type: [facility] Attending Dr: Minerva Anderson MD Copies to: [...] OF LIVER LESION. CHOLELITHIASIS. Impression dictated by: Hagn Houser Jr., D.O.10/02/2022 10:33 AM Dictation Location: [place] [address] Transcribed By: [facility] 10/02/22 1033 Dictated By: Hang Houser Jr, DO 10/02/22 0923 Signed By: 10/02/22 1033 Normal [facility] Creatinine (Bld) [Mass/Vol]O rdered By: Minerva Anderson on 10-01-2022 Creatinine [Mass/Vol] 1.2 mg/dL 0.6-1.3 [facility] Comment on above: ER/ESD physician is notified/shown all ISTAT results.Critical values may be confirmed by laboratory testing ifdeemed necessary by ER attending doctor. ISTAT XRay CREon 10-01-2022 Creatinine [Mass/Vol] 1.2 mg/dL Normal 0.6-1.3 [facility] Comment on above: Result Comment: ER/E SD physician is notified/shown all ISTAT results. Critical values may be confirmed by laboratory testing if deemed necessary by ER attending doctor. Performed By: #### I SCRE #### [facility] [address] [place] [address] Point of Care testing , ISTAT GFR ( > 60 Normal [facility] Comment on above: Result Comment: GFR estimated reference range: According to KDOQI guidelines, <60 ml/min/1.73m2 is sufficient to diagnose a patient with chronic kidney disease. PERFORMED BY: [place] [address] PATHOLOGIST ORDER TO DELIVERY SUPERVISOR YONG HANKINS M.D. Performed By: #### I SCRE #### [address] Point of Care testing , ISTAT GFR (Non- Am 60 Normal [facility] Comment on above: Performed By: #### I SCRE #### [facility] [address] Point of Care testing , No Panel InformationOrdered By: Minerva Anderson on 10-01-2022 POC Estimated GFR > 60 [facility] Comment on above: GFR estimated refere nce range: According to KDOQI guidelines, <60 ml/min/1.73m2 is sufficient to diagnose a patient with chronic kidney disease. POC Estimated GFR Non- Amer 60 [facility] PATH CONSULTon 09-20-2022 LAB AP CASE REPORT Normal [facility] Comment on above: Result Comment: PATH OLOGY CONSULT Case: [id number] Authorizing Provider: Thalia Troy MD Collected: 09/20/2022 1150 Ordering Location: [facility] Lab Received: 09/20/2022 1153 Pathologist: Vanessa Maldonado MD Specimen: Anus, Biopsy Performed By: #### P ATH CONSULT ####[facility] (BEAKER)[address] [place] [address] LAB AP CLINICAL INFORMATION Anal mass Normal [facility] Comment on above: Performed By: #### P ATH CONSULT ####[facility] (BEAKER)[address] [place] [address] LAB AP DIAGNOSIS COMMENT Normal [facility] Comment on above: Result Comment: Prov [...] needed. Performed By: #### P ATH CONSULT ####[facility] ([facility])[address] [place] [address] LAB AP GROSS DESCRIPTION A. Anus. [facility] Comment on above: Result Comment: Rece ived from [address] [place] [address] are eight (8) previously stained glass slides accessioned [id number]. The slides are accompanied by a copy of the contributing pathologists??? report. Performed By: #### P ATH CONSULT ####[facility] ([facility])[address] [place] [address] LAB AP REPORT FINAL DIAGNOSIS NARRATIVE [facility] Comment on above: Result Comment: Mass at anal verge, biopsy ([id number], are 8 slides received from [facility]): Adenocarcinoma of colonic origin. Performed By: #### P ATH CONSULT ####[facility] ([facility])[address] [place] [address] CBC W Auto Differential pane l (Bld)on 09-17-2022 Basophils (Bld) [#/Vol] 0.06 10*3/uL <0.11 k/uL [facility] Basophils/100 WBC (Bld) 0.6 % [facility] Differential cell count method Nom (Bld) Auto [facility] Eosinophils (Bld) [#/Vol] 0.26 10*3/uL <0.46 k/uL [facility] Eosinophils/100 WBC (Bld) 2.7 % [facility] Erythrocyte distribution width (RBC) [Ratio] 15.2 % High 11.5 - 15.0 % [facility] Hematocrit (Bld) [Volume fraction] 43.9 % 39.0 - 51.0 % [facility] Hemoglobin (Bld) [Mass/Vol] 14.4 g/dL 13.0 - 17.0 g/dL [facility] Immature granulocytes (Bld) [#/Vol] 0.03 10*3/uL <0.10 k/uL [facility] Immature granulocytes/100 WBC (Bld) 0.3 % [facility] Lymphocytes (Bld) [#/Vol] 2.17 10*3/uL 1.00 - 4.00 k/uL [facility] Lymphocytes/100 WBC (Bld) 22.8 % [facility] MCH (RBC) [Entitic mass] 31.0 pg 26.0 - 34.0 pg [facility] MCHC (RBC) [Mass/Vol] 32.8 g/dL 30.5 - 36.0 g/dL [facility] MCV (RBC) [Entitic vol] 94.4 fL 80.0 - 100.0 fL [facility] Monocytes (Bld) [#/Vol] 0.67 10*3/uL <0.87 k/uL [facility] Monocytes/100 WBC (Bld) 7.0 % [facility] Neutrophils (Bld) [#/Vol] 6.33 10*3/uL 1.45 - 7.50 k/uL [facility] Neutrophils/100 WBC (Bld) 66.6 % [facility] Nucleated RBC (Bld) [#/Vol] <0.01 k/uL [facility] Nucleated RBC/100 WBC (Bld) [Ratio] 0.0 /100 WBC [facility] Platelet mean volume (Bld) [Entitic vol] 10.4 fL 9.0 - 12.7 fL [facility] Platelets (Bld) [#/Vol] 232 10*3/uL 150 - 400 k/uL [facility] RBC (Bld) [#/Vol] 4.65 10*6/uL 4.20 - 6.0 0 m/uL [facility] WBC (Bld) [#/Vol] 9.52 10*3/uL 3.70 - 11.00 k/uL [facility] Comprehensive metabolic 2000 panelon 09-17-2022 Albumin [Mass/Vol] 4.2 g/dL 3.9 - 4.9 g/dL [facility] ALP [Catalytic activity/Vol] 89 U/L 38 - 113 U/L [facility] ALT [Catalytic activity/Vol] 11 U/L 10 - 54 U/L [facility] Anion gap [Moles/Vol] 8 mmol/L Low 9 - 18 mmol/L [facility] AST [Catalytic activity/Vol] 16 U/L 14 - 40 U/L [facility] Bilirubin [Mass/Vol] 0.5 mg/dL 0.2 - 1 .3 mg/dL [facility] Calcium [Mass/Vol] 9.3 mg/dL 8.5 - 10. 2 mg/dL [facility] Chloride [Moles/Vol] 103 mmol/L 97 - 10 5 mmol/L [facility] CO2 [Moles/Vol] 29 mmol/L 22 - 30 mmol/L [facility] Creatinine [Mass/Vol] 1.22 mg/dL 0.73 - 1.22 mg/dL [facility] Estimated Glomerular Filtration Rate 64 mL/min/1.73m >=60 mL/min/1.73 m [facility] Glucose [Mass/Vol] 84 mg/dL 74 - 99 mg/dL [facility] Potassium [Moles/Vol] 4.1 mmol/L 3.7 - 5.1 mmol/L [facility] Protein [Mass/Vol] 6.5 g/dL 6.3 - 8.0 g/dL [facility] Sodium [Moles/Vol] 140 mmol/L 136 - 144 mmol/L [facility] Urea nitrogen [Mass/Vol] 23 mg/dL 9 - 24 mg/dL [facility] CT ABDOMEN PELVIS W IV CONTR [...] Electronically signed: Jerrica Barragan. Normal [facility] CT CHEST W IV CONTRASTon CT [...] Electronically signed: Jerrica Barragan. Normal [facility] MR PELVIS WO CONTRASTon 08-22 MR [...] Electronically signed: MERVAT JACINTO. Normal [facility] Comment on above: Order Comment: RECTA L MRI NEEDED CEAon 09-05-2022 CARCINOEMBRYONIC AG (NG/ML) IN SER/PLAS 14.4 ng/mL High 0-3 [facility] Comment on above: Performed By: #### L [id number] ####[facility] (BEAKER)[address] [place] [address] CREATININE, SERUMon 09-05-20 Creatinine [Mass/Vol] 1.15 mg/dL Normal 0.70-1.30 [facility] Comment on above: Performed By: #### L [id number] #### [facility] (BEAKER) [address] [place] [address] GLOMERULAR FILTRATION RATE ML/MIN/1.73 SQ M.PREDICTED 64.6 mL/min/1.73m*2 Normal >60.0 [facility] Comment on above: Result Comment: [facility]???s estimated glomerular filtration rate (eGFR) will [...] individuals. Performed By: #### L [id number] #### [facility] (CHITRA) [address] [place] [address] Office Visiton 09-05-2022 Follow-up visit [id number] Mervat Damon 1950 M [facility] 09/05/2022 THALIA WONG [facility] Second Fl Family History Problem Relation Age of Onset Pancreatic cancer Mother Breast cancer Mother Other Father Liver cancer Sister Thyroid cancer Brother Family Status - Relation Status Age at Mother Father Sister Brother Alive Level of Service:44713 [place] OFFICE/OUTPATIENT ESTABLISHED MOD MDM 30-39 MIN Reason for Visit and Comments: Follow-up [472239] - Adenocarcinoma of colon (Reveiw biopsy results) [facility] 36on 08-29-[address] TROY SCHEDULE IN OFFICE ON 09/05/22. CALLED PT AND SCHEDULED WITH DR. TROY PER PROVIDER REQUEST. Normal [facility] 36 Pt update he states metamusil is helping with constipation and pain is still between 2-5. Pt is scheduled for next Saturday. [facility] Orders Onlyon 08-29-2022 Orders Only [id number] Mervat Damon 1950 M [facility] 08/29/2022 BERNARDO WHITING [facility] Second Fl No family history on file [facility] Consulton 08-22-2022 Consult [id number] Juárez 1950 [facility] Provider Department Center 08/22/2022 [place]W TROYH[place]IE [facility] Second Fl No family history on file Level of Service:34210 [place] OFFICE/OUTPATIENT NEW MODERATE MDM 45-59 MINUTES Reason for Visit and Comments: Consult [484] - rectal mass Normal [facility] Laboratory - Chemistry and C hemistry [...] 42.0 % Normal 37.7 - 49.0 % [facility] Hemoglobin (Bld) [Mass/Vol] 13.9 g/dL Normal 13.5 - 17.5 gm/dL [facility] MCH (RBC) [Entitic mass] 31.4 pg Normal 27.0 - 34.0 pg [facility] MCHC (RBC) [Mass/Vol] 33.2 g/dL Normal 31.4 - 36.0 gm/dL [facility] MCV (RBC) [Entitic vol] 94.7 fL [...] 52 mL/min/1.73 m2 Low >=59mL/min/ 1.73 m2 [facility] Chem S GFR/1.73 sq M.predicted among non-blacks MDRD (S/P/Bld) [Vol rate/Area] 43 mL/min/1.73 m2 Low >=59mL/min/ 1.73 m2 [facility] Chem S Glucose [Mass/Vol] 86 mg/dL Normal [...] 0.1 E9/L Normal 0.0 - 0.2 E9/L [facility] Eosinophils/100 WBC (Bld) 1.5 % Normal [...] 5.9 E12/L [facility] Sed Rate Automated 11 mm/h Normal 0 - 19 mm/hr [facility] WBC corrected for nucl RBC Auto (Bld) [#/Vol] 7.8 E9/L Normal 4.0 - 11.0 E9/L [facility] Laboratory Testing Ordered By: Zeny [employer] on 11-07-2021 SARS-CoV-2 (COVID-19) RNA MIGUE+probe Ql (Resp) Not detected Invalid Interpretation Code Not Detected [facility] [employer] Comment on above: Result Comment: This nucleic acid amplification test was developed and its performance characteristics determined by [employer]. Nucleic acid amplification tests include RT-PCR and [...] detected) result in this assay. Performed at: [address] [id number] PhD Antionette Harris Covid-19 PCR ([facility])on SARS-CoV-2 (COVID-19) RNA MIGUE+probe Ql (Unsp spec) Not detected Normal NOT DETECTED [facility] Comment on above: Result Comment: This test is not yet approved or cleared by the [place] FDA. When there are no FDA-approved or cleared tests available, and other criteria are met, FDA can make tests available under an emergency access mechanism called an Emergency Use Authorization (EUA). The EUA for this test is supported by the [place] of Health and Human Service's (HHS's) declaration [...] consistent with SARS-CoV-2. Performed By: #### [facility] #### [facility] [address] [place], [place] [id number] Shannan Viola CBC AUTO DIFFon 03-23-2021 BASO # 0.1 103/ul Normal 0.0-0.1 [facility] Comment on above: Performed By: #### C BC #### [facility] [address] [place], [place] [id number] Shannan Viola Basophils/100 WBC (Bld) 0.8 % Normal 0.2-2.0 [facility] Comment on above: Performed By: #### C BC #### [facility] [address] [place] [address] Shannan Viola EO # 0.3 103/ul Normal 0.0-0.7 [facility] Comment on above: Performed By: #### C BC #### [facility] [address] [place] [address] Shannan Viola Eosinophils/100 WBC (Bld) 4.1 % Normal 0.9-7.0 [facility] Comment on above: Performed By: #### C BC #### [facility] [address] [place], [place] [id number] Shannan Viola Erythrocyte distribution width (RBC) [Ratio] 16.0 % Critically high 11.0-15.0 [facility] Comment on above: Performed By: #### C BC #### [facility] [address] [place], [place] [id number] Shannan Viola Hematocrit (Bld) [Volume fraction] 40.8 % Critically low 42.0-54.0 [facility] Comment on above: Performed By: #### C BC #### [facility] [address] [place], [place] [address] Shannan Viola Hemoglobin (Bld) [Mass/Vol] 13.4 g/dL Critically low 14.0-18.0 [facility] Comment on above: Performed By: #### C BC #### [facility] [address] [address] Shannan Viola IG # 0.02 10e3/ul Normal 0.00-0.03 [facility] Comment on above: Performed By: #### C BC #### [facility] [address] [place] [address] Shannan Viola IG % 0.3 % Normal 0.0-0.5 [facility] Comment on above: Performed By: #### C BC #### [facility] [address] [place] [address] Shannan Viola LYMPH # 2.1 103/ul Normal 1.2-3.8 [facility] Comment on above: Performed By: #### C BC #### [facility] [address] [place] [address] Shannan Viola Lymphocytes/100 WBC (Bld) 26.3 % Normal 20.5-60.0 [facility] Comment on above: Performed By: #### C BC #### [facility] [address] [place] [address] Shannan Viola MANUAL DIFF REQ NO Normal [facility] Comment on above: Performed By: #### C BC #### [facility] [address] [place] [address] Shannan Viola MCH (RBC) [Entitic mass] 31.0 pg Normal 25.9-34.0 [facility] Comment on above: Performed By: #### C BC #### [facility] [address] [place] [address] Shannan Viola MCHC (RBC) [Mass/Vol] 32.8 g/dL Normal 29.9-35.2 [facility] Comment on above: Performed By: #### C BC #### [facility] [address] [place] [address] Shannan Viola MCV (RBC) [Entitic vol] 94.4 fL Critically high 80.0-94.0 [facility] Comment on above: Performed By: #### C BC #### [facility] [address] [place] [address] Shannan Rod MONO # 0.7 103/ul Normal 0.3-0.8 [facility] Comment on above: Performed By: #### C BC #### [facility] [address] [place], [place] [id number] Shannan Rod Monocytes/100 WBC (Bld) 8.8 % Normal 1.7-12.0 [facility] Comment on above: Performed By: #### C BC #### [facility] [address] [place], [place] [address] Shannan Mejiaen NEUT # 4.7 103/ul Normal 1.4-6.5 [facility] Comment on above: Performed By: #### C BC #### [facility] [address] [place] [address] Shannan Rod Neutrophils/100 WBC (Bld) 59.7 % Normal 43.0-75.0 [facility] Comment on above: Performed By: #### C BC #### [facility] [address] [place] [address] Shannan Rod Platelet mean volume (Bld) [Entitic vol] 10.0 fL Normal 9.5-13.5 [facility] Comment on above: Performed By: #### C BC #### [facility] [address] [place], [place] [id number] Shannan Rod PLT 225 103/ul Normal 150-450 [facility] Comment on above: Performed By: #### C BC #### [facility] [address] [place], [place] [address] Shannna Rod RBC 4.32 106/ul Critically low 4.70-6.10 [facility] Comment on above: Performed By: #### C BC #### [facility] [address] [place], [place] [address] Shannandomenic Mejiaen WBC 7.8 103/ul Normal 4.0-11.0 [facility] Comment on above: Performed By: #### C BC #### [facility] [address] [place] [address] Shannan Rod PROF CHEM 8 (BAS METB)on Anion gap [Moles/Vol] 9.5 mmol/L Normal [facility] Comment on above: Performed By: #### B MP #### [facility] [address] [id number] Shannan Viola Calcium [Mass/Vol] 8.6 mg/dL Normal 8.4-10.2 [facility] Comment on above: Performed By: #### B MP #### [facility] [address] [address] Shannan Viola Chloride [Moles/Vol] 106 mmol/L Normal 98-107 [facility] Comment on above: Performed By: #### B MP #### [facility] [address] [address] Shannan Viola CO2 [Moles/Vol] 30.5 mmol/L Critically high 22.0-30.0 [facility] Comment on above: Performed By: #### B MP #### [facility] [address] [place] [address] Shannan Viola Creatinine [Mass/Vol] 1.22 mg/dL Normal 0.66-1.25 [facility] Comment on above: Performed By: #### B MP #### [facility] [address] [place], [place] [address] Shannan Viola EGFR-AF EGYPTIAN >60 Normal >=60 [facility] Comment on above: Performed By: #### B MP #### [facility] [address] [place] [address] Shannan Viola EGFR-NON AF EGYPTIAN 59 mL/min/1.73m2 Critically low >=60 [facility] Comment on above: Performed By: #### B MP #### [facility] [address] [place] [address] Shannan Viola Glucose [Mass/Vol] 84 mg/dL Normal 74-106 [facility] Comment on above: Performed By: #### B MP #### [facility] [address] [id number] Shannan Viola Potassium [Moles/Vol] 4.0 mmol/L Normal 3.4-5.0 [facility] Comment on above: Performed By: #### B MP #### [facility] [address] [id number] Shannan Viola Sodium [Moles/Vol] 142 mmol/L Normal 137-145 [facility] Comment on above: Performed By: #### B MP #### [facility] [address] [place], [place] [address] Shannan Viola Urea nitrogen [Mass/Vol] 15.0 mg/dL Normal 9.0-20.0 [facility] Comment on above: Performed By: #### B MP #### [facility] [address] [place] [address] Shannan Viola Urea nitrogen/Creatinine [Mass ratio] 12.3 mg/mg Normal [facility] Comment on above: Performed By: #### B MP #### [facility] [address] [place] [address] Shannandomenic Mejiaen PROTIMEon 03-23-2021 INR Coag (PPP) [Relative time] 0.99 {INR} Normal [facility] Comment on above: Performed By: #### P T, PTT #### [facility] [address] [place] [address] Shannan Viola INR GUIDELINES SEE BELOW Normal [facility] Comment on above: Result Comment: YASMANY RED INR: 2.0 - 3.0 CONDITIONS NOT LISTED BELOW 2.5 - 3.5 FOR PROSTHETIC HEART VALVE REPLACEMENT 2.5 - 3.5 RECURRENT THROMBOSIS Performed By: #### P T, PTT #### [facility] [address] [place] [address] Shannan Viola PT Coag (PPP) [Time] 10.8 s Normal 9.0-11.6 [facility] Comment on above: Performed By: #### P T, PTT #### [facility] [address] [place], [place] [id number] Shannan Viola PTTon 03-23-2021 aPTT Coag (Bld) [Time] 28.1 s Normal 22.3-36.2 [facility] Comment on above: Performed By: #### P T, PTT #### [facility] [address] [place] [address] Shannan Rod XR FOOT BLANCA MIN 3 [...] PETIT Date: 2021-02-02 11:19 Normal [facility] Vital Signs Date Time Vital Sign Value Performing Clinician Crescencioi ophelia 10-09-2023 12:56-0500 Diastolic blood pressure 71 mm[Hg] Twist [facility] 10-09-2023 12:56-0500 Heart rate 76 /min [facility] 10-09-2023 12:56-0500 Mean blood pressure 82 mm[Hg] [facility] 10-09-2023 12:56-0500 Systolic blood pressure 103 mm[Hg] [facility] 07-16-2023 08:20-0400 Body height 187.96 cm [employer] Other [employer] Other 07-16-2023 08:20-0400 Body mass index (BMI) [Ratio] 30.55 kg/m2 [employer] [facility] Other 07-16-2023 08:20-0400 Body weight 107.96 kg [employer] Other [facility] Other 07-16-2023 08:20-0400 Diastolic blood pressure 90 mm[Hg] [facility] [employer] Other [facility] Other 07-16-2023 08:20-0400 Systolic blood pressure 128 mm[Hg] [facility] [employer] Other [facility] Other 07-09-2023 10:10-0400 Diastolic blood pressure 79 mm[Hg] Deborah Norman MD Work Phone: [facility] 07-09-2023 10:10-0400 Heart rate 57 /min Deborah Norman MD Work Phone: [facility] 07-09-2023 10:10-0400 Respiratory rate 19 /min Deborah Norman MD Work Phone: [facility] 07-09-2023 10:10-0400 SaO2% (BldA) [Mass fraction] 94 % Deborah Norman MD Work Phone: [facility] 07-09-2023 10:10-0400 Systolic blood pressure 109 mm[Hg] Deborah Norman MD Work Phone: [facility] 07-09-2023 09:46-0400 Body temperature 97.2 [degF] Deborah Norman MD Work Phone: [facility] 06-18-2023 14:00-0400 Body height 187.96 cm [employer] Other [facility] Other 06-18-2023 14:00-0400 Body mass index (BMI) [Ratio] 30.68 kg/m2 [employer] [facility] Other 06-18-2023 14:00-0400 Body weight 108.41 kg [employer] [facility] Other 05-28-2023 10:06-0400 Body height 187.7 cm Minerva Anderson MD Work Phone: [facility] 05-28-2023 10:06-0400 Body temperature 97.59 [degF] Minerva Anderson MD Work Phone: [facility] 05-28-2023 10:06-0400 Body weight 105.96 kg Minerva Anderson MD Work Phone: [facility] 05-28-2023 10:06-0400 Diastolic blood pressure 86 mm[Hg] Minerva Anderson MD Work Phone: [facility] 05-28-2023 10:06-0400 Heart rate 64 /min Minerva Anderson MD Work Phone: [facility] 05-28-2023 10:06-0400 Respiratory rate 16 /min Minerva Anderson MD Work Phone: [facility] 05-28-2023 10:06-0400 SaO2% (BldA) [Mass fraction] 95 % Minerva Anderson MD Work Phone: [facility] 05-28-2023 10:06-0400 Systolic blood pressure 124 mm[Hg] Minerva Anderson MD Work Phone: [facility] 05-07-2023 13:15-0400 Diastolic blood pressure 68 mm[Hg] Bryon Cruz [facility] 05-07-2023 13:15-0400 Heart rate 42 /min Bryon Anthony [facility] 05-07-2023 13:15-0400 Mean blood pressure 82 mm[Hg] Bryon Anthony [facility] 05-07-2023 13:15-0400 Respiratory rate 14 /min Bryon Anthony [facility] 05-07-2023 13:15-0400 Systolic blood pressure 109 mm[Hg] Bryon Anthony [facility] 04-29-2023 08:32-0400 Blood Pressure Location Cyndee SANCHEZ [facility] 04-29-2023 08:32-0400 Diastolic blood pressure 73 mm[Hg] Cyndee SANCHEZ [facility] 04-29-2023 08:32-0400 Heart rate 61 /min Cyndee SANCHEZ [facility] 04-29-2023 08:32-0400 SaO2% (BldA) [Mass fraction] 95 % Cyndee SANCHEZ [facility] 04-29-2023 08:32-0400 Systolic blood pressure 116 mm[Hg] Cyndee SANCHEZ [facility] 04-11-2023 09:30-0400 Body height 187.96 cm [employer] [facility] Other 04-11-2023 09:30-0400 Body mass index (BMI) [Ratio] 29.78 kg/m2 [employer] [facility] Other 04-11-2023 09:30-0400 Body weight 105.24 kg [employer] Other [facility] Other 04-11-2023 09:30-0400 Diastolic blood pressure 82 mm[Hg] [employer] [facility] Other 04-11-2023 09:30-0400 Systolic blood pressure 122 mm[Hg] [employer] [facility] Other 04-09-2023 13:30-0400 Diastolic blood pressure 95 mm[Hg] Deborah Norman MD Work Phone: [facility] 04-09-2023 13:30-0400 Heart rate 78 /min Deborah Norman MD Work Phone: [facility] 04-09-2023 13:30-0400 Respiratory rate 15 /min Deborah Norman MD Work Phone: [facility] 04-09-2023 13:30-0400 SaO2% (BldA) [Mass fraction] 95 % Deborah Norman MD Work Phone: [facility] 04-09-2023 13:30-0400 Systolic blood pressure 138 mm[Hg] Deborah Norman MD Work Phone: [facility] 04-09-2023 13:05-0400 Body temperature 97.3 [degF] Deborah Norman MD Work Phone: [facility] 03-21-2023 10:54-0400 Body temperature 97.81 [degF] Chair [place] Work Phone: [facility] 03-21-2023 10:54-0400 Diastolic blood pressure 74 mm[Hg] Chair Arya Work Phone: [facility] 03-21-2023 10:54-0400 Heart rate 63 /min Chair Arya Work Phone: [facility] 03-21-2023 10:54-0400 Respiratory rate 18 /min Chair [place] Work Phone: [facility] 03-21-2023 10:54-0400 SaO2% (BldA) [Mass fraction] 95 % Chair [place] Work Phone: [facility] 03-21-2023 10:54-0400 Systolic blood pressure 108 mm[Hg] Chair Arya Work Phone: [facility] 03-19-2023 08:39-0400 Body height 187.7 cm Minerva Anderson MD Work Phone: [facility] 03-19-2023 08:39-0400 Body temperature 97.2 [degF] Minerva Anderson MD Work Phone: [facility] 03-19-2023 08:39-0400 Body weight 110.04 kg Minerva Anderson MD Work Phone: [facility] 03-19-2023 08:39-0400 Diastolic blood pressure 70 mm[Hg] Minerva Anderson MD Work Phone: [facility] 03-19-2023 08:39-0400 Heart rate 69 /min Minerva Adnerson MD Work Phone: [facility] 03-19-2023 08:39-0400 Respiratory rate 16 /min Minerva Anderson MD Work Phone: [facility] 03-19-2023 08:39-0400 SaO2% (BldA) [Mass fraction] 96 % Minerva Anderson MD Work Phone: [facility] 03-19-2023 08:39-0400 Systolic blood pressure 105 mm[Hg] Minerva Anderson MD Work Phone: [facility] 03-18-2023 10:40-0400 Body temperature 97.88 [degF] [facility] 03-18-2023 10:40-0400 Diastolic blood pressure 91 mm[Hg] [facility] 03-18-2023 10:40-0400 Heart rate 69 /min [facility] 03-18-2023 10:40-0400 Respiratory rate 18 /min [facility] 03-18-2023 10:40-0400 SaO2% (BldA) [Mass fraction] 96 % [facility] 03-18-2023 10:40-0400 Systolic blood pressure 142 mm[Hg] [facility] 03-13-2023 10:24-0400 Body temperature 96.69 [degF] JOSE Vásquez MD Work Phone: [facility] 03-13-2023 10:24-0400 Body weight 108.41 kg JOSE Vásquez MD Work Phone: [facility] 03-13-2023 10:24-0400 Diastolic blood pressure 70 mm[Hg] JOSE Vásquez MD Work Phone: [facility] 03-13-2023 10:24-0400 Heart rate 60 /min JOSE Vásquez MD Work Phone: [facility] 03-13-2023 10:24-0400 Respiratory rate 18 /min JOSE Vásquez MD Work Phone: [facility] 03-13-2023 10:24-0400 SaO2% (BldA) [Mass fraction] 98 % JOSE Vásquez MD Work Phone: [facility] 03-13-2023 10:24-0400 Systolic blood pressure 106 mm[Hg] JOSE Vásquez MD Work Phone: [facility] 02-21-2023 11:33-0400 Body temperature 97.5 [degF] Chair [place] Work Phone: [facility] 02-21-2023 11:33-0400 Diastolic blood pressure 75 mm[Hg] Chair [place] Work Phone: [facility] 02-21-2023 11:33-0400 Heart rate 57 /min Chair Arya Work Phone: [facility] 02-21-2023 11:33-0400 Respiratory rate 18 /min Chair Arya Work Phone: [facility] 02-21-2023 11:33-0400 SaO2% (BldA) [Mass fraction] 97 % Chair [place] Work Phone: [facility] 02-21-2023 11:33-0400 Systolic blood pressure 112 mm[Hg] Chair [place] Work Phone: [facility] 02-19-2023 09:21-0400 Body height 187.7 cm Minerva Anderson MD Work Phone: [facility] 02-19-2023 09:21-0400 Body temperature 97.3 [degF] Minerva Anderson MD Work Phone: [facility] 02-19-2023 09:21-0400 Body weight 111.4 kg Minerva Anderson MD Work Phone: [facility] 02-19-2023 09:21-0400 Diastolic blood pressure 88 mm[Hg] Minerva Anderson MD Work Phone: [facility] 02-19-2023 09:21-0400 Heart rate 61 /min Minerva Anderson MD Work Phone: [facility] 02-19-2023 09:21-0400 Respiratory rate 18 /min Minerva Anderson MD Work Phone: [facility] 02-19-2023 09:21-0400 SaO2% (BldA) [Mass fraction] 96 % Minerva Anderson MD Work Phone: [facility] [facility] 02-19-2023 09:21-0400 Systolic blood pressure 107 mm[Hg] Minerva Anderson MD Work Phone: [facility] 02-07-2023 14:38-0400 Body weight 110.59 kg Deborah Norman MD Work Phone: [facility] 02-07-2023 14:38-0400 Diastolic blood pressure 69 mm[Hg] Deborah Norman MD Work Phone: [facility] 02-07-2023 14:38-0400 Heart rate 77 /min Deborah Norman MD Work Phone: [facility] 02-07-2023 14:38-0400 SaO2% (BldA) [Mass fraction] 98 % Deborah Norman MD Work Phone: [facility] 02-07-2023 14:38-0400 Systolic blood pressure 110 mm[Hg] Deborah Norman MD Work Phone: [facility] 02-07-2023 10:08-0400 Body temperature 98.6 [degF] Chair Arya Work Phone: [facility] 02-07-2023 10:08-0400 Diastolic blood pressure 69 mm[Hg] Chair [place] Work Phone: [facility] 02-07-2023 10:08-0400 Heart rate 62 /min Chair Arya Work Phone: [facility] 02-07-2023 10:08-0400 Respiratory rate 18 /min Chair [place] Work Phone: [facility] 02-07-2023 10:08-0400 SaO2% (BldA) [Mass fraction] 96 % Chair [place] Work Phone: [facility] 02-07-2023 10:08-0400 Systolic blood pressure 99 mm[Hg] Chair Arya Work Phone: [facility] 02-04-2023 13:40-0400 Body weight 108.86 kg Mert Krueger MD Work Phone: [facility] 02-04-2023 13:40-0400 Diastolic blood pressure 69 mm[Hg] Mert Krueger MD Work Phone: [facility] 02-04-2023 13:40-0400 Heart rate 76 /min Mert Krueger MD Work Phone: [facility] 02-04-2023 13:40-0400 Systolic blood pressure 105 mm[Hg] Mert Krueger MD Work Phone: [facility] 01-24-2023 10:49-0400 Body temperature 97.5 [degF] Chair [place] Work Phone: [facility] 01-24-2023 10:49-0400 Diastolic blood pressure 68 mm[Hg] Chair Arya Work Phone: [facility] 01-24-2023 10:49-0400 Heart rate 59 /min Chair [place] Work Phone: [facility] 01-24-2023 10:49-0400 Respiratory rate 18 /min Chair [place] Work Phone: [facility] 01-24-2023 10:49-0400 SaO2% (BldA) [Mass fraction] 97 % Chair [place] Work Phone: [facility] 01-24-2023 10:49-0400 Systolic blood pressure 96 mm[Hg] Chair Arya Work Phone: [facility] 01-22-2023 15:50-0400 Blood Pressure Location Santiago Kong [facility] 01-22-2023 15:50-0400 Diastolic blood pressure 76 mm[Hg] Santiago Kong [facility] 01-22-2023 15:50-0400 Heart rate 103 /min Santiago Kong [facility] 01-22-2023 15:50-0400 SaO2% (BldA) [Mass fraction] 96 % Santiago Kong [facility] 01-22-2023 15:50-0400 Systolic blood pressure 126 mm[Hg] Santiago Kong [facility] 01-22-2023 09:15-0400 Body temperature 97.7 [degF] Chair [place] Work Phone: [facility] 01-22-2023 09:15-0400 Diastolic blood pressure 75 mm[Hg] Chair [place] Work Phone: [facility] 01-22-2023 09:15-0400 Heart rate 59 /min Chair Arya Work Phone: [facility] 01-22-2023 09:15-0400 Respiratory rate 18 /min Chair Arya Work Phone: [facility] 01-22-2023 09:15-0400 SaO2% (BldA) [Mass fraction] 97 % Chair [place] Work Phone: [facility] 01-22-2023 09:15-0400 Systolic blood pressure 111 mm[Hg] Chair Arya Work Phone: [facility] 01-10-2023 09:59-0400 Body temperature 98.01 [degF] Chair [place] Work Phone: [facility] 01-10-2023 09:59-0400 Diastolic blood pressure 84 mm[Hg] Chair [place] Work Phone: [facility] 01-10-2023 09:59-0400 Heart rate 61 /min Chair Arya Work Phone: [facility] 01-10-2023 09:59-0400 Respiratory rate 18 /min Chair [place] Work Phone: [facility] 01-10-2023 09:59-0400 SaO2% (BldA) [Mass fraction] 98 % Chair [place] Work Phone: [facility] 01-10-2023 09:59-0400 Systolic blood pressure 129 mm[Hg] Chair Arya Work Phone: [facility] 01-08-2023 08:19-0400 Body height 187.7 cm Minerva Anderson MD Work Phone: [facility] 01-08-2023 08:19-0400 Body temperature 97.2 [degF] Minerva Anderson MD Work Phone: [facility] 01-08-2023 08:19-0400 Body weight 113.31 kg Minerva Anderson MD Work Phone: [facility] 01-08-2023 08:19-0400 Diastolic blood pressure 73 mm[Hg] Minerva Anderson MD Work Phone: [facility] 01-08-2023 08:19-0400 Heart rate 68 /min Minerva Anderson MD Work Phone: [facility] 01-08-2023 08:19-0400 Respiratory rate 16 /min Minerva Anderson MD Work Phone: [facility] 01-08-2023 08:19-0400 SaO2% (BldA) [Mass fraction] 98 % Minerva Anderson MD Work Phone: [facility] 01-08-2023 08:19-0400 Systolic blood pressure 107 mm[Hg] Minerva Anderson MD Work Phone: [facility] 12-27-2022 10:25-0500 Body temperature 97.59 [degF] Chair [place] Work Phone: [facility] 12-27-2022 10:25-0500 Diastolic blood pressure 59 mm[Hg] Chair [place] Work Phone: [facility] 12-27-2022 10:25-0500 Heart rate 65 /min Chair Arya Work Phone: [facility] 12-27-2022 10:25-0500 Respiratory rate 16 /min Chair [place] Work Phone: [facility] 12-27-2022 10:25-0500 SaO2% (BldA) [Mass fraction] 97 % Chair [place] Work Phone: [facility] 12-27-2022 10:25-0500 Systolic blood pressure 92 mm[Hg] Chair Arya Work Phone: [facility] 12-17-2022 15:11-0500 Body height 186.2 cm Minerva Anderson MD Work Phone: [facility] 12-17-2022 15:11-0500 Body temperature 97.3 [degF] Minerva Anderson MD Work Phone: [facility] 12-17-2022 15:11-0500 Body weight 111.22 kg Minerva Anderson MD Work Phone: [facility] 12-17-2022 15:11-0500 Diastolic blood pressure 63 mm[Hg] Minerva Anderson MD Work Phone: [facility] 12-17-2022 15:11-0500 Heart rate 71 /min Minerva Anderson MD Work Phone: [facility] 12-17-2022 15:11-0500 Respiratory rate 16 /min Minerva Anderson MD Work Phone: [facility] 12-17-2022 15:11-0500 SaO2% (BldA) [Mass fraction] 100 % Minerva Anderson MD Work Phone: [facility] 12-17-2022 15:11-0500 Systolic blood pressure 111 mm[Hg] Minerva Anderson MD Work Phone: [facility] 11-19-2022 14:32-0500 Body height 186.2 cm Minerva Anderson MD Work Phone: [facility] 11-19-2022 14:32-0500 Body temperature 97.59 [degF] Minerva Anderson MD Work Phone: [facility] 11-19-2022 14:32-0500 Body weight 110.5 kg Minerva Anderson MD Work Phone: [facility] 11-19-2022 14:32-0500 Diastolic blood pressure 87 mm[Hg] Minerva Anderson MD Work Phone: [facility] 11-19-2022 14:32-0500 Heart rate 77 /min Minerva Anderson MD Work Phone: [facility] 11-19-2022 14:32-0500 Respiratory rate 16 /min Minerva Anderson MD Work Phone: [facility] 11-19-2022 14:32-0500 SaO2% (BldA) [Mass fraction] 98 % Minerva Anderson MD Work Phone: [facility] 11-19-2022 14:32-0500 Systolic blood pressure 126 mm[Hg] Minerva Anderson MD Work Phone: [facility] 11-19-2022 14:12-0500 Body temperature 97.39 [degF] JOSE Vásquez MD Work Phone: [facility] 11-19-2022 14:12-0500 Body weight 110.5 kg JOSE Vásquez MD Work Phone: [facility] 11-19-2022 14:12-0500 Diastolic blood pressure 61 mm[Hg] JOSE Vásquez MD Work Phone: [facility] 11-19-2022 14:12-0500 Heart rate 76 /min JOSE Vásquez MD Work Phone: [facility] 11-19-2022 14:12-0500 Respiratory rate 16 /min JOSE Vásquez MD Work Phone: [facility] 11-19-2022 14:12-0500 SaO2% (BldA) [Mass fraction] 98 % JOSE Vásquez MD Work Phone: [facility] 11-19-2022 14:12-0500 Systolic blood pressure 95 mm[Hg] JOSE Vásquez MD Work Phone: [facility] 11-12-2022 14:08-0500 Body temperature 97.5 [degF] JOSE Vásquez MD Work Phone: [facility] 11-12-2022 14:08-0500 Body weight 110.86 kg JOSE Vásquez MD Work Phone: [facility] 11-12-2022 14:08-0500 Diastolic blood pressure 65 mm[Hg] JOSE Vásquez MD Work Phone: [facility] 11-12-2022 14:08-0500 Heart rate 89 /min JOSE Vásquez MD Work Phone: [facility] 11-12-2022 14:08-0500 Respiratory rate 18 /min JOSE Vásquez MD Work Phone: [facility] 11-12-2022 14:08-0500 SaO2% (BldA) [Mass fraction] 96 % JOSE Vásquez MD Work Phone: [facility] 11-12-2022 14:08-0500 Systolic blood pressure 99 mm[Hg] JOSE Vásquez MD Work Phone: [facility] 11-05-2022 15:06-0500 Body temperature 96.3 [degF] JOSE Vásquez MD Work Phone: [facility] 11-05-2022 15:06-0500 Body weight 112.49 kg JOSE Vásquez MD Work Phone: [facility] 11-05-2022 15:06-0500 Diastolic blood pressure 80 mm[Hg] JOSE Vásquez MD Work Phone: [facility] 11-05-2022 15:06-0500 Heart rate 74 /min JOSE Vásquez MD Work Phone: [facility] 11-05-2022 15:06-0500 Respiratory rate 18 /min JOSE Vásquez MD Work Phone: [facility] 11-05-2022 15:06-0500 SaO2% (BldA) [Mass fraction] 94 % JOSE Vásquez MD Work Phone: [facility] 11-05-2022 15:06-0500 Systolic blood pressure 112 mm[Hg] JOSE Vásquez MD Work Phone: [facility] 10-29-2022 15:18-0500 Body height 186.2 cm Andree Hollis APRN.INSEAM L[employer]ELER Work Phone: [facility] 10-29-2022 15:18-0500 Body temperature 96.69 [degF] Andree Hollis APRN.INSEAM LEVELER Work Phone: [facility] 10-29-2022 15:18-0500 Body weight 111.13 kg Andree Hollis APRN.INSEAM LEVELER Work Phone: [facility] 10-29-2022 15:18-0500 Diastolic blood pressure 73 mm[Hg] Andree Hollis APRN.INSEAM LEVELER Work Phone: [facility] 10-29-2022 15:18-0500 Heart rate 78 /min Andree Hollis APRN.INSEAM LEVELER Work Phone: [facility] 10-29-2022 15:18-0500 Respiratory rate 16 /min Andree Hollis APRN.INSEAM LEVELER Work Phone: [facility] 10-29-2022 15:18-0500 SaO2% (BldA) [Mass fraction] 100 % Andree Hollis APRN.INSEAM LEVELER Work Phone: [facility] 10-29-2022 15:18-0500 Systolic blood pressure 112 mm[Hg] Andree Hollis APRN.CNP Work Phone: [facility] 10-29-2022 14:36-0500 Body temperature 96.69 [degF] Dennis Cheung MD Work Phone: [facility] 10-29-2022 14:36-0500 Body weight 111.13 kg Dennis Cheung MD Work Phone: [facility] 10-29-2022 14:36-0500 Diastolic blood pressure 73 mm[Hg] Dennis Cheung MD Work Phone: [facility] 10-29-2022 14:36-0500 Heart rate 78 /min Dennis Cheung MD Work Phone: [facility] 10-29-2022 14:36-0500 Respiratory rate 16 /min Dennis Cheung MD Work Phone: [facility] 10-29-2022 14:36-0500 SaO2% (BldA) [Mass fraction] 100 % Dennis Cheung MD Work Phone: [facility] 10-29-2022 14:36-0500 Systolic blood pressure 112 mm[Hg] Dennis Cheung MD Work Phone: [facility] 10-24-2022 10:11-0500 Blood Pressure Location ASHLEY TRINIDAD [facility] 10-24-2022 10:11-0500 Diastolic blood pressure 69 mm[Hg] ASHLEY TRINIDAD [facility] 10-24-2022 10:11-0500 Heart rate 70 /min ASHLEY TRINIDAD [facility] 10-24-2022 10:11-0500 Respiratory rate 16 /min ASHLEY TRINIDAD [facility] 10-24-2022 10:11-0500 Systolic blood pressure 117 mm[Hg] ASHLEY TRINIDAD [facility] 10-23-2022 08:11-0500 Body temperature 97.3 [degF] JOSE Vásquez MD Work Phone: [facility] 10-23-2022 08:11-0500 Body weight 112.04 kg JOSE Vásquez MD Work Phone: [facility] 10-23-2022 08:11-0500 Diastolic blood pressure 69 mm[Hg] JOSE Vásquez MD Work Phone: [facility] 10-23-2022 08:11-0500 Heart rate 78 /min JOSE Vásquez MD Work Phone: [facility] 10-23-2022 08:11-0500 Respiratory rate 16 /min JOSE Vásquez MD Work Phone: [facility] 10-23-2022 08:11-0500 SaO2% (BldA) [Mass fraction] 97 % JOSE Vásquez MD Work Phone: [facility] 10-23-2022 08:11-0500 Systolic blood pressure 110 mm[Hg] JOSE Vásquez MD Work Phone: [facility] 10-16-2022 13:33-0500 Body temperature 97.39 [degF] JOSE Vásquez MD Work Phone: [facility] 10-16-2022 13:33-0500 Body weight 111.4 kg JOSE Vásquez MD Work Phone: [facility] 10-16-2022 13:33-0500 Diastolic blood pressure 60 mm[Hg] JOSE Vásquez MD Work Phone: [facility] 10-16-2022 13:33-0500 Heart rate 69 /min JOSE Vásquez MD Work Phone: [facility] 10-16-2022 13:33-0500 Respiratory rate 18 /min JOSE Vásquez MD Work Phone: [facility] 10-16-2022 13:33-0500 SaO2% (BldA) [Mass fraction] 95 % NA Yesi ARRINGTON Work Phone: [facility] 10-16-2022 13:33-0500 Systolic blood pressure 97 mm[Hg] NA Yesi ARRINGTON Work Phone: [facility] 10-11-2022 14:49-0500 Body height 186.2 cm Andree Hollis APRN.IN[employer]AM L[employer]ELER Work Phone: [facility] 10-11-2022 14:49-0500 Body temperature 97.59 [degF] Andree Hollis APRN.INSEAM LEVELER Work Phone: [facility] 10-11-2022 14:49-0500 Body weight 113.22 kg Andree Hollis APRN.INSEAM LEVELER Work Phone: [facility] 10-11-2022 14:49-0500 Diastolic blood pressure 82 mm[Hg] Andree Hollis APRN.INSEAM LEVELER Work Phone: [facility] 10-11-2022 14:49-0500 Heart rate 97 /min Andree Hollis APRN.INSEAM LEVELER Work Phone: [facility] 10-11-2022 14:49-0500 Respiratory rate 16 /min Andree Hollis APRN.INSEAM LEVELER Work Phone: [facility] 10-11-2022 14:49-0500 SaO2% (BldA) [Mass fraction] 96 % Andree Hollis APRN.INSEAM LEVELER Work Phone: [facility] 10-11-2022 14:49-0500 Systolic blood pressure 147 mm[Hg] Andree Hollis APRN.INSEAM LEVELER Work Phone: [facility] 10-03-2022 13:30-0500 Blood Pressure Location Cyndee SANCHEZ [facility] 10-03-2022 13:30-0500 Diastolic blood pressure 70 mm[Hg] Cyndee SANCHEZ [facility] 10-03-2022 13:30-0500 Heart rate 90 /min Cyndee SANCHEZ [facility] 10-03-2022 13:30-0500 Respiratory rate 18 /min Cyndee SANCHEZ [facility] 10-03-2022 13:30-0500 SaO2% (BldA) [Mass fraction] 96 % Cyndee SANCHEZ [facility] 10-03-2022 13:30-0500 Systolic blood pressure 110 mm[Hg] Cyndee SANCHEZ [facility] 10-02-2022 14:30-0500 Body height 186.2 cm Minerva Anderson MD Work Phone: [facility] 10-02-2022 14:30-0500 Body temperature 97.81 [degF] Minerva Anderson MD Work Phone: [facility] 10-02-2022 14:30-0500 Body weight 113.94 kg Minerva Anderson MD Work Phone: [facility] 10-02-2022 14:30-0500 Diastolic blood pressure 78 mm[Hg] Minerva Anderson MD Work Phone: [facility] 10-02-2022 14:30-0500 Heart rate 83 /min Minerva Anderson MD Work Phone: [facility] 10-02-2022 14:30-0500 Respiratory rate 18 /min Minerva Anderson MD Work Phone: [facility] 10-02-2022 14:30-0500 SaO2% (BldA) [Mass fraction] 97 % Minerva Anderson MD Work Phone: [facility] 10-02-2022 14:30-0500 Systolic blood pressure 113 mm[Hg] Minerva Anderson MD Work Phone: [facility] 09-20-2022 07:56-0500 Body temperature 96.69 [degF] JOSE Vásquez MD Work Phone: [facility] 09-20-2022 07:56-0500 Body weight 113.31 kg JOSE Vásquez MD Work Phone: [facility] 09-20-2022 07:56-0500 Diastolic blood pressure 70 mm[Hg] JOSE Vásquez MD Work Phone: [facility] 09-20-2022 07:56-0500 Heart rate 66 /min JOSE Vásquez MD Work Phone: [facility] 09-20-2022 07:56-0500 Respiratory rate 18 /min JOSE Vásquez MD Work Phone: [facility] 09-20-2022 07:56-0500 SaO2% (BldA) [Mass fraction] 97 % JOSE Vásquez MD Work Phone: [facility] 09-20-2022 07:56-0500 Systolic blood pressure 106 mm[Hg] JOSE Vásquez MD Work Phone: [facility] 09-17-2022 16:03-0500 Body height 186.2 cm Minerva Anderson MD Work Phone: [facility] 09-17-2022 16:03-0500 Body temperature 97.5 [degF] Minerva Anderson MD Work Phone: [facility] 09-17-2022 16:03-0500 Body weight 111.22 kg Minerva Anderson MD Work Phone: [facility] 09-17-2022 16:03-0500 Diastolic blood pressure 72 mm[Hg] Minerva Anderson MD Work Phone: [facility] 09-17-2022 16:03-0500 Heart rate 68 /min Minerva Anderson MD Work Phone: [facility] 09-17-2022 16:03-0500 Respiratory rate 16 /min Minerva Anderson MD Work Phone: [facility] 09-17-2022 16:03-0500 SaO2% (BldA) [Mass fraction] 97 % Minerva Anderson MD Work Phone: [facility] 09-17-2022 16:03-0500 Systolic blood pressure 135 mm[Hg] Minerva Anderson MD Work Phone: [facility] 08-20-2022 08:15-0400 Diastolic blood pressure 101 mm[Hg] Mervat NILL [facility] 08-20-2022 08:15-0400 Heart rate 68 /min Mervat NILL [facility] 08-20-2022 08:15-0400 Respiratory rate 18 /min Mervat NILL [facility] 08-20-2022 08:15-0400 SaO2% (BldA) [Mass fraction] 96 % Mervat NILL [facility] 08-20-2022 08:15-0400 Systolic blood pressure 139 mm[Hg] Mervat NILL [facility] 08-20-2022 08:12-0400 Diastolic blood pressure 97 mm[Hg] Mervat NILL [facility] 08-20-2022 08:12-0400 Heart rate 67 /min Mervat NILL [facility] 08-20-2022 08:12-0400 Respiratory rate 10 /min Mervat NILL [facility] 08-20-2022 08:12-0400 SaO2% (BldA) [Mass fraction] 96 % Mervat NILL [facility] 08-20-2022 08:12-0400 Systolic blood pressure 130 mm[Hg] Mervat NILL [facility] 08-20-2022 08:05-0400 Diastolic blood pressure 92 mm[Hg] Mervat NILL [facility] 08-20-2022 08:05-0400 Heart rate 69 /min Mervat NILL [facility] 08-20-2022 08:05-0400 Respiratory rate 14 /min Mervat NILL [facility] 08-20-2022 08:05-0400 SaO2% (BldA) [Mass fraction] 93 % Mervat NILL [facility] 08-20-2022 08:05-0400 Systolic blood pressure 127 mm[Hg] Mervat NILL [facility] 08-20-2022 07:50-0400 Body temperature 97.7 [degF] Mervat NILL [facility] 08-20-2022 07:45-0400 Respiratory rate 14 /min Mervat NILL [facility] 08-20-2022 07:40-0400 Respiratory rate 13 /min Mervat NILL [facility] 08-20-2022 07:35-0400 Respiratory rate 14 /min Mervat NILL [facility] 08-20-2022 07:10-0400 Blood Pressure Location Mervat NILL [facility] 08-20-2022 07:10-0400 Body temperature 96.98 [degF] Mervat NILL [facility] 08-14-2022 08:42-0400 Blood Pressure Location Mervat NILL [facility] [place] 08-14-2022 08:42-0400 Diastolic blood pressure 67 mm[Hg] Mervat NILL [facility] [place] 08-14-2022 08:42-0400 Heart rate 63 /min Mervat NILL [facility] [place] 08-14-2022 08:42-0400 Respiratory rate 16 /min Mervat NILL [facility] [place] 08-14-2022 08:42-0400 Systolic blood pressure 114 mm[Hg] Mervat NILL [facility] [place] 05-31-2022 10:53-0400 Blood Pressure Location VALERIE SIDELL [facility] 05-31-2022 10:53-0400 Diastolic blood pressure 70 mm[Hg] VALERIE SIDELL [facility] 05-31-2022 10:53-0400 Heart rate 74 /min VALERIE SIDELL [facility] 05-31-2022 10:53-0400 SaO2% (BldA) [Mass fraction] 96 % VALERIE SIDELL [facility] 05-31-2022 10:53-0400 Systolic blood pressure 114 mm[Hg] VALERIE SIDELL [facility] 04-03-2022 10:55-0400 Blood Pressure Location Cyndee STANG [facility] 04-03-2022 10:55-0400 Diastolic blood pressure 62 mm[Hg] Cyndee STANG [facility] 04-03-2022 10:55-0400 Heart rate 76 /min Cyndee STANG [facility] 04-03-2022 10:55-0400 Respiratory rate 18 /min Cyndee STANG [facility] 04-03-2022 10:55-0400 SaO2% (BldA) [Mass fraction] 96 % Cyndee SANCHEZ [facility] 04-03-2022 10:55-0400 Systolic blood pressure 98 mm[Hg] Cyndee SANCHEZ [facility] Encounters Encounter Date Encounter Type Care Provider Facility Start: 12-03-2023 End: 12-03-2023 Subsequent hospital visit by physician Mri [facility] (Istat/3t) Work Phone: [facility] Radiology MRI Comment on above: Malignant neoplasm o f rectum (HCC) [C20] Start: 11-21-2023 End: 11-21-2023 ambulatory LORENZO OLSON Facility:[facility] Start: 11-05-2023 ambulatory JACKY TAYLOR Facility:[facility] Start: 10-11-2023 End: 10-11-2023 ambulatory CHELSIE FERNANDO Not Available Start: 10-10-2023 Follow-up encounter Deborah cain MD Work Phone: Colorectal Surgery Comment on above: Encounter for follow -up surveillance of rectal cancer (Primary Dx) Start: 10-10-2023 End: 10-10-2023 ambulatory LORENZO OLSON Facility:[facility] Start: 10-10-2023 End: 10-10-2023 ambulatory [facility] Work Phone: Hematology/Oncology Comment on above: Rectal cancer (HCC) (Primary Dx) Start: 10-09-2023 End: 10-10-2023 [facility] OLSON Facility:[facility] Start: 10-09-2023 End: 10-09-2023 Pain Management Cyndee Darin [facility] Start: 09-26-2023 Refill Minerva Anderson MD Work Phone: Hematology/Oncology Comment on above: Refill Request Start: 09-05-2023 End: 09-05-2023 ambulatory LORENZO OLSON Facility:[facility] Start: 08-27-2023 Telephone encounter [facility]a [facility]ong [facility]: Future Appointment Start: 08-27-2023 End: 08-27-2023 ambulatory LORENZO Asim TOMAS Facility:[facility] Start: 08-22-2023 End: 08-23-2023 ambulatory Corey R MCKEE Facility:[facility] Start: 08-22-2023 End: 08-22-2023 Patient encounter procedure Corey MCKEE [facility] Start: 08-14-2023 End: 08-14-2023 ambulatory Lorenzo Asim Tomas Facility:[facility] Start: 08-14-2023 End: 08-14-2023 ambulatory DO Lorenzo Olson Work Phone: [facility] Work Phone: Start: 08-14-2023 End: 08-14-2023 Patient encounter procedure Lorenzo Olson Work Phone: [facility] [address] Work Phone: Start: 07-24-2023 Follow-up encounter Deborah cain MD Work Phone: Colorectal Surgery Comment on above: Encounter for follow -up surveillance of rectal cancer (Primary Dx) Start: 07-16-2023 End: 07-16-2023 ambulatory [facility] Other [facility] [employer] Other Start: 07-16-2023 Office outpatient vi sit [address] 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 Border Assembler - Angie ocasio (Lab Results; Neuropathy) Start: 06-20-2023 End: 06-20-2023 ambulatory LORENZO OLSON Facility:[facility] Start: 06-20-2023 End: 06-20-2023 ambulatory Lab/Port [place] Work Phone: Hematology/Oncology Comment on above: Rectal cancer (HCC) Start: 06-19-2023 Telephone encounter Denisha mello RN Work Phone: Hematology/Oncology Comment on above: Care Coordination (L ab Request) Start: 06-18-2023 End: 06-18-2023 ambulatory Valencia Torres Other [facility] [employer] Other Start: 06-18-2023 Office outpatient vi sit [address] [facility] Neurosurgery Start: 06-17-2023 End: 06-27-2023 Pre-admission assessment Corey MCKEE [facility] Start: 06-04-2023 End: 06-05-2023 ambulatory Corey MCKEE Facility:[id number] Start: 05-28-2023 End: 05-28-2023 ambulatory LORENZO OLSON Facility:[facility] Start: 05-28-2023 End: 05-28-2023 Patient encounter procedure Minerva Anderson MD Work Phone: [facility] Start: 05-28-2023 End: 05-28-2023 ambulatory Lab/Port [place] Work Phone: Hematology/Oncology Comment on above: Rectal cancer (HCC) Rectal cancer (HCC) (Primary Dx); Neoplasm related pain (acute) (chronic); Rheumatoid arthritis involving multiple sites, unspecified whether rheumatoid factor present (HCC); Acute deep vein thrombosis (DVT) of distal vein of left lower extremity (HCC) Start: 05-23-2023 End: 07-21-2023 ambulatory Bryon Cruz Facility:[facility] Start: 05-22-2023 End: 05-22-2023 ambulatory Valenciasilas Torres Facility:[facility] Start: 05-22-2023 End: 05-22-2023 ambulatory DO Elizalde Asim Tomas Work Phone: [facility] Work Phone: Start: 05-22-2023 End: 05-22-2023 Patient encounter procedure DO Lorenzo Tomas Work Phone: [facility]-MRI Main [place] Work Phone: Start: 05-17-2023 End: 05-18-2023 ambulatory Bryon Cruz Facility:[facility] Start: 05-14-2023 Telephone encounter Denisha mello RN Work Phone: Hematology/Oncology Comment on above: Care Coordination (O rders ) Start: 05-14-2023 End: 05-14-2023 ambulatory LORENZO OLSON Facility:[facility] Start: 05-07-2023 End: 05-08-2023 ambulatory MD Bryon Cruz Facility:[facility] Start: 05-07-2023 End: 05-07-2023 Pain Management Bryon Cruz [facility] Start: 05-06-2023 Refill Minerva Anderson MD Work Phone: [facility] Comment on above: Refill Request Start: 05-03-2023 Telephone encounter Deborah cain MD Work Phone: Colorectal Surgery Comment on above: Orders (Flex sig, CE A, MRI, CT) Wire Border Assembler - O ther Appointment (Pt call ing to let Chelsie know that 07/09, Saturday would be his best option for colonoscopy. ) Start: 04-29-2023 End: 04-30-2023 ambulatory XXXX NONE Facility:[facility] Start: 04-29-2023 End: 04-29-2023 Patient encounter procedure Cyndee SANCHEZ [facility] Start: 04-18-2023 ambulatory DEBORAH NORMAN Facility:[facility] Start: 04-17-2023 Telephone encounter Denisha mello RN Work Phone: Hematology/Oncology Comment on above: Care Coordination (P otassium Results) Start: 04-16-2023 End: 04-16-2023 ambulatory LORENZO OLSON Facility:[facility] Start: 04-16-2023 End: 04-16-2023 ambulatory Lab/Port [place] Work Phone: Hematology/Oncology Comment on above: Rectal cancer (HCC) Start: 04-11-2023 Encounter for other specified special examinations Valencia Torres [facility] Neurosurgery Start: 04-11-2023 Office outpatient ne w [address] [facility] Neurosurgery Start: 04-11-2023 End: 04-11-2023 ambulatory DO Lorenzo Olson Work Phone: [facility] Work Phone: Start: 04-11-2023 End: 04-11-2023 Patient encounter procedure DO Lorenzo Olson Work Phone: [facility] Work Phone: Start: 04-09-2023 ambulatory DEBORAH GOMEZ Facility: [facility] Start: 04-09-2023 End: 04-09-2023 Subsequent hospital visit by physician Deborah Norman MD Work Phone: Procedures Comment on above: Rectal cancer (HCC) [C20] Start: 04-02-2023 End: 04-03-2023 ambulatory Lorenzo OLSON Facility:[facility] Start: 03-26-2023 ambulatory [facility] Provider Paulino pappas Comment on above: Colonoscopy prep ins tructions Start: 03-26-2023 E-mail encounter fro m caregiver [facility] Provider SOLO GOMES [facility] Start: 03-26-2023 Telephone encounter Deborah cain MD Work Phone: Colorectal Surgery Comment on above: Patient Question Care Coordination (M RI Question) Start: 03-21-2023 End: 03-21-2023 marcelle OLSON Facility:[facility] Start: 03-21-2023 End: 03-21-2023 ambulatory Chair Pema Arya Work Phone: Hematology/Oncology Comment on above: Rectal cancer (HCC) (Primary Dx) Start: 03-20-2023 Telephone encounter Santiago Lema ROYCE Work Phone: [facility] Comment on above: Results Start: 03-19-2023 End: 03-19-2023 ambulatory LORENZO OLSON Facility:[facility] Start: 03-19-2023 End: 03-19-2023 Patient encounter procedure [...] 03-18-2023 End: 03-18-2023 Emergency department patient visit Yuridia Houser Facility:[facility] Start: 03-18-2023 End: 03-18-2023 [facility] Start: 03-13-2023 End: 03-13-2023 ambulatory LORENZO OLSON Facility:[facility] Start: 03-13-2023 End: 03-14-2023 ambulatory LORENZO OLSON Facility:[facility] Start: 03-13-2023 End: 03-13-2023 Patient encounter procedure Dania Vásquez MD Work Phone: Radiation Oncology Comment on above: Rectal cancer (HCC) (Primary Dx); Malignant neoplasm of prostate (HCC) Start: 03-07-2023 End: 03-07-2023 ambulatory LORENZO OLSON Facility:[facility] Start: 03-05-2023 End: 03-05-2023 ambulatory Chair 5 Arya Work Phone: Hematology/Oncology Comment on above: Rectal cancer (HCC) (Primary Dx) Start: 03-01-2023 Telephone encounter Minerva wong MD Work Phone: Hematology/Oncology Comment on above: Lab Orders Start: 02-26-2023 Telephone encounter Samantha Kash cuello [facility] Work Phone: [facility] Comment on above: Medication Assistanc e (Approved for Free Xarelto) Start: 02-21-2023 End: 02-21-2023 ambulatory LORENZO TOMAS Facility:[facility] Start: 02-21-2023 End: 02-21-2023 ambulatory Chair 20 Arya Work Phone: Hematology/Oncology Comment on above: Rectal cancer (HCC) (Primary Dx) Start: 02-19-2023 End: 02-19-2023 ambulatory MINERVA ANDERSON Facility:[facility] Start: 02-19-2023 End: 02-19-2023 Patient encounter procedure Minerva Anderson MD Work Phone: [employer] Start: 02-19-2023 End: 02-19-2023 ambulatory Minerva Anderson MD Work Phone: Hematology/Oncology Comment on above: Rectal cancer (HCC) (Primary Dx); Acute deep vein thrombosis (DVT) of distal vein of left lower extremity (HCC) Rectal cancer (HCC) (Primary Dx) Rectal cancer (HCC) Start: 02-07-2023 End: 02-07-2023 ambulatory LORENZO OLSON Facility:[facility] Start: 02-07-2023 End: 02-07-2023 Patient encounter procedure Deborah Norman MD Work Phone: Colorectal Surgery Comment on above: Rectal cancer (HCC) (Primary Dx); Malignant neoplasm of rectum (HCC) Start: 02-07-2023 End: 02-07-2023 ambulatory LORENZO OLSON Facility:[facility] Start: 02-07-2023 End: 02-07-2023 ambulatory Chair 20 Arya Work Phone: Hematology/Oncology Comment on above: Rectal cancer (HCC) (Primary Dx) Start: 02-05-2023 End: 02-06-2023 ambulatory LORENZO Dailey TOMAS Facility:[facility] Start: 02-04-2023 End: 02-04-20[facility] Facility:[facility] Start: 02-04-2023 End: 02-04-2023 Patient encounter procedure Mert Krueger MD Work Phone: Gastroenterology Comment on above: Rectal cancer (HCC) (Primary Dx); Rectal bleeding; Acute deep vein thrombosis (DVT) of distal vein of left lower extremity (HCC); Family history of pancreatic cancer; Family history of primary liver cancer Start: 01-24-2023 End: 01-24-2023 ambulatory LORENZO TOMAS Facility:[facility] Start: 01-24-2023 End: 01-24-2023 ambulatory Chair Pema Simon Work Phone: Hematology/Oncology Comment on above: Rectal cancer (HCC) (Primary Dx) Start: 01-23-2023 Refill Celeste Hernandez ruma [facility] Work Phone: [facility] HB-3 Comment on above: Refill Request Care Coordination (D VT; Ramya) Start: 01-22-2023 End: 01-23-2023 ambulatory Andree Hollis Facility:[facility] Start: 01-22-2023 Telephone encounter Denisha mello RN Work Phone: Hematology/Oncology Comment on above: Care Coordination (U S Order) Start: 01-22-2023 End: 01-23-[address] Work Phone: [facility] Start: 01-22-2023 End: 01-22-20[address] Nutrition therapy Ho[address] Owen RD Work Phone: Nutrition Therapy Comment on above: Nutrition Counseling Start: 01-22-2023 End: 01-22-2023 Patient encounter procedure Santiago Kong [facility] Start: 01-22-2023 End: 01-22-2023 ambulatory Lab/Port [place] Work Phone: Hematology/Oncology Comment on above: Rectal cancer (HCC) (Primary Dx) Rectal cancer (HCC) (Primary Dx); Leg swelling; Left ankle swelling Start: 01-18-2023 Telephone encounter Minerva wong MD Work Phone: Hematology/Oncology Comment on above: Lab Orders Start: 01-14-2023 Telephone encounter Denisha mello RN Work Phone: Hematology/Oncology Comment on above: Wire Border Assembler - O ther (Rectal Bleeding) Start: 01-10-2023 End: 01-11-2023 ambulatory INSEAM LEVELER Cyndee SANCHEZ Facility:[facility] Start: 01-10-2023 End: 01-10-2023 Patient encounter procedure Cyndee Dumont LAURA [facility] Start: 01-10-2023 End: 01-10-2023 ambulatory LORENZO OLSON Facility:[facility] Start: 01-10-2023 End: 01-10-2023 ambulatory Chair 20 Arya Work Phone: Hematology/Oncology Comment on above: Rectal cancer (HCC) (Primary Dx) Start: 01-08-2023 End: 01-08-[address] Work Phone: Nutrition Therapy Comment on above: Nutrition Assessment Start: 01-08-2023 End: 01-08-2023 Patient encounter procedure Minerva Anderson MD Work Phone: [facility] Start: 01-08-2023 End: 01-08-2023 ambulatory Lab/Port Juan [place] Work Phone: Hematology/Oncology Comment on above: Rectal cancer (HCC) Rectal cancer (HCC) (Primary Dx) Start: 12-28-2022 Telephone encounter Lucy Goetz RN Work Phone: Hematology/Oncology Comment on above: Care Coordination (C 1D1 treatment follow up call) Start: 12-27-2022 End: 12-28-2022 [facility] Facility:[facility] Start: 12-27-2022 End: 12-27-2022 ambulatory Chair Pema Simon Work Phone: Hematology/Oncology Comment on above: Rectal cancer (HCC) (Primary Dx) Start: 12-25-2022 End: 12-26-2022 ambulatory Lab/Port Juan Carlos Simon Work Phone: Hematology/Oncology Comment on above: Rectal cancer (HCC) Rectal cancer (HCC) (Primary Dx) Start: 12-20-2022 End: 12-20-2022 ambulatory Denisha Duarte RN Work Phone: Hematology/Oncology Comment on above: Chemotherapy Treatme nt (Oxaliplatin, Leucovorin, 5FU) Start: 12-20-2022 Telephone encounter Celeste Bray [facility] Work Phone: Hematology/Oncology Comment on above: Erroneous encounter- disregard Start: 12-19-2022 End: 12-19-2022 ambulatory [facility] Facility:[facility] Start: 12-19-2022 Telephone encounter Milton Ward [facility] Radiology Procedure Comment on above: Radiology Pre Proced ure Instructions Start: 12-18-2022 Patient encounter status Minerva Anderson MD Work Phone: Hematology/Oncology Start: 12-18-2022 Telephone encounter Minerva wong MD Work Phone: Hematology/Oncology Comment on above: Lab Orders Start: 12-17-2022 End: 12-17-2022 [facility]LSON Facility:[facility] Start: 12-17-2022 End: 12-17-2022 ambulatory Minerva Anderson MD Work Phone: Hematology/Oncology Comment on above: Rectal cancer (HCC) (Primary Dx); Lung nodules Start: 12-17-2022 End: 12-17-2022 Patient encounter procedure Minerva Anderson MD Work Phone: [facility]AYA Start: 12-17-2022 Telephone encounter Minerva wong MD [facility] Comment on above: Referral Information (Port placement) Start: 12-10-2022 End: 12-10-2022 ambulatory LORENZO Dailey TOMAS Facility:[facility] Start: 12-10-2022 End: 12-10-2022 ambulatory LORENZO Dailey TOMAS Facility:[facility] Start: 11-20-2022 Telephone encounter Katerina Hargrove RN [...] 11-08-2022 End: 11-08-2022 Patient encounter procedure Lab/Port Arturokadie Arya Work Phone: Radiation Oncology Comment on above: Rectal cancer (HCC) Start: 11-07-2022 Telephone encounter Andree eaton APRN.CNP Work Phone: Radiation Oncology Comment on above: Pain Orders Start: 11-05-2022 End: 11-05-2022 Patient encounter procedure Dania Vásquez MD Work Phone: Radiation Oncology Comment on above: Rectal cancer (HCC) (Primary Dx) Start: 10-29-2022 End: 10-29-2022 ambulatory Andree Hollis APRN.INSEAM LEVELER Work Phone: Hematology/Oncology Comment on above: Rectal cancer (HCC) (Primary Dx); Abnormal PET scan of lung; Pulmonary embolus with infarction (HCC); Rheumatoid arthritis involving multiple sites, unspecified whether rheumatoid factor present (HCC) Start: 10-29-2022 End: 10-29-2022 Patient encounter procedure Andree Hollis APRN.INSEAM LEVELER Work Phone: [facility] Comment on above: Rectal cancer (HCC) (Primary Dx) Start: 10-24-2022 Refill Oliva Brewer [facility] Start: 10-24-2022 End: 10-24-2022 Patient encounter procedure ASHLEY TRINIDAD [facility] Start: 10-23-2022 End: 10-23-2022 Patient encounter [...] Start: 10-11-2022 End: 10-11-2022 ambulatory Andree Hollis APRN.INSEAM LEVELER Work Phone: Hematology/Oncology Comment on above: Rectal cancer (HCC) (Primary Dx); Pulmonary embolus with infarction (HCC) Start: 10-11-2022 End: 10-11-2022 Patient encounter procedure Andree Hollis APRN.ARACELY Work Phone: [facility] Start: 10-11-2022 Telephone encounter Denisha Duarte Hematology/Oncology Comment on above: Care Coordination (O ral Anti-Cancer Agent Follow Up) Start: 10-10-2022 End: 10-10-2022 ambulatory [facility] Facility:[facility] Start: 10-09-2022 Telephone encounter Hang garay MD Work Phone: [facility] Endoscopy - ENDO Comment on above: Appointment Start: 10-08-2022 End: 10-08-20[facility] Start: 10-08-2022 End: 10-08-2022 ambulatory Hang Maier MD Work Phone: Pulmonology Comment on above: Adenopathy (Primary Dx); Rectal adenocarcinoma (HCC); Rheumatoid arthritis involving multiple sites, unspecified whether rheumatoid factor present (HCC) Start: 10-08-2022 End: 10-08-2022 Telemedicine consultation with patient Hang Maier MD Work Phone: [facility] Start: 10-08-2022 End: 10-08-2022 Patient encounter procedure Dania Vásquez MD Work Phone: Radiation Oncology Comment on above: Rectal adenocarcinom a (HCC) (Primary Dx) Start: 10-08-2022 End: 10-08-2022 Nursing evaluation of patient and report Ma Nurse Juan Carlos Delatorre Work Phone: Hematology/Oncology Comment on above: Adenopathy Start: 2022 Orders Only Hang cain MD Work Phone: Pulmonary Medicine Comment on above: Adenopathy (Primary Dx) Bronchoscopy Schedul ing Care Coordination (M edication Question) Care Coordination (B ronchoscopy) Start: 10-03-2022 End: 10-03-2022 Patient encounter procedure Cyndee SANCHEZ [facility] Start: 10-03-2022 End: 10-03-2022 Patient encounter procedure Cyndee SANCHEZ [facility] Start: 10-02-2022 End: 10-02-2022 Patient encounter procedure [...] Start: 10-01-2022 End: 10-01-2022 ambulatory Lorenzo Olson Facility:[facility] Start: 10-01-2022 End: 10-01-2022 ambulatory DO Lorenzo Olson Work Phone: [facility] Work Phone: Start: 10-01-2022 End: 10-01-2022 Patient encounter procedure DO Lorenzo Olson Work Phone: [facility] [place] Start: 10-01-2022 Telephone encounter Denisha Duarte Hematology/Oncology [...] Start: 09-24-2022 End: 09-24-2022 Patient encounter procedure G Saeed Vásquez MD Work Phone: Radiation Oncology Comment on above: Rectal adenocarcinom a (HCC) (Primary Dx) Start: 09-24-2022 Radiation Oncology Note Dania Ángel Vásquez MD Work Phone: Radiation Oncology Comment on above: Treatment Planning Start: 09-20-2022 ambulatory Sonam Horowitz RN Radiati on Oncology Comment on above: Patient Education Start: 09-20-2022 Telephone encounter Minerva wong MD [facility]: [facility] Comment on above: Future Appointment Start: 09-20-2022 End: 09-20-2022 Patient encounter procedure Dania Saeed Vásquez MD Work Phone: Radiation Oncology Comment on above: Rectal adenocarcinom a (HCC) (Primary Dx) Start: 09-18-2022 Telephone encounter Minerva wong MD Work Phone: [employer] Comment on above: Call Back 48 Hours Start: 09-17-2022 End: 09-17-2022 ambulatory Minerva Anderson MD Work Phone: Hematology/Oncology Comment on above: Rectal cancer (HCC) (Primary Dx); Rheumatoid arthritis involving multiple sites, unspecified whether rheumatoid factor present (HCC) Start: 09-17-2022 End: 09-17-2022 Patient encounter procedure Minerva Anderson MD Work Phone: [place] Start: 09-17-2022 Chart abstracting Minerva del cid MD Work Phone: Hematology/Oncology Start: 09-11-2022 End: 09-12-2022 ambulatory [facility] Start: 09-06-2022 Telephone encounter Minal Cain Hematology/Oncology Comment on above: Appointment Start: 09-05-2022 End: 09-05-2022 ambulatory [facility] Start: 08-22-2022 End: 08-22-2022 ambulatory [facility] Start: 08-20-2022 End: 08-20-2022 Patient encounter procedure Mervat SLAUGHTER [facility] Start: 08-14-2022 End: 08-14-2022 Patient encounter procedure Mervat Michael KASANDRA [facility] General Surgery [place] Start: 08-06-2022 End: 02-14-2023 Recurring JONAH CONNELL [facility] Start: 05-31-2022 End: 05-31-2022 Lab Drop off VALERIE ROBERTS [facility] Start: 05-31-2022 End: 05-31-2022 Patient encounter procedure VALERIE ROBERTS [facility] Family Medicine [place] Start: 04-30-2022 End: 07-29-2022 Recurring JONAH SOTOKAMIJAQUELIN [facility] Start: 04-03-2022 End: 04-03-2022 Patient encounter procedure Cyndee SANCHEZ [facility] Start: 11-07-2021 End: 02-05-2022 Patient encounter procedure Lorenzo OLSON [facility] Start: 04-04-2021 Encounter for preprocedural laboratory examination [facility] Start: 04-03-2021 End: 04-03-[address] LORENZO OLSON Facility: Start: 03-31-2021 Encounter for preprocedural cardiovascular examination [facility] Start: 03-31-2021 Encounter for preprocedural laboratory examination [facility] Start: 03-28-2021 End: 03-29-[address] LORENZO OLSON Facility:[facility] Start: 03-28-2021 End: 03-29-2021 Encounter for preprocedural laboratory examination DR LORENZO OLSON Facility:[facility] Start: 03-23-2021 End: 03-24-2021 ambulatory SONAM ZAMBRANO Facility:[facility] Start: 03-23-2021 End: 03-24-2021 Encounter for preprocedural cardiovascular examination SONAM ZAMBRANO Facility:[facility] Start: 02-02-2021 End: 02-03-[address] [facility] Facility:[facility] Procedures Date Procedure Procedure Detail Performing Clinician Start: 12-03-2023 Mri pelvis w/o & w/c ontrast material Deborah Norman MD Work Phone: Start: 08-14-2023 MR lumbar spine wo con [...] exam Deborah Norman MD Work Phone: Start: 06-20-2023 Colonoscopy flx dx w /collj spec when pfrmd Deborah Norman MD Work Phone: Start: 04-09-2023 Colonoscopy Lab/Port S jonathan Work Phone: Start: 03-19-2023 Blood count complete auto&auto difrntl wbc Andree Wild GLOBE CHANGER.INSEAM LEVELER Work Phone: Start: 02-19-2023 Blood count complete auto&auto difrntl wbc Minerva [...] 09-28-2015 Cystoscopy Lorenzo HAGER Cervical arthrodesis Lorenzo TOMAS Cervical arthrodesis Mervat SLAUGHTER Colonoscopy Lorenzo OLSON Hammer toe operation Lorenzo OLSON Hemorrhoidectomy Mervat Dumont Plan of Treatment Date Care Activity Detail Author Start: 11-05-2028 Screening for malign ant neoplasm of colon [facility] Start: 07-09-2028 Colorectal Cancer Screening Colorectal Cancer Screening [facility] Start: 07-09-2028 Screening for malign ant neoplasm of colon [facility] Start: 07-09-2028 SIGMOIDOSCOPY SIGMO[facility]OSCOPY [facility] Start: 11-21-2026 [facility] Start: 08-27-2026 [facility] Start: 06-20-2026 DIABETES SCREEN DIABETES SCREEN [facility] Start: 06-20-2026 [facility] Start: 05-28-2026 DIABETES SCREEN DIABETES SCREEN [facility] Start: 05-14-2026 DIABETES SCREEN DIABETES SCREEN [facility] Start: 04-16-2026 DIABETES SCREEN DIABETES SCREEN [facility] Start: 03-19-2026 DIABETES SCREEN DIABETES SCREEN [facility] Start: 03-05-2026 DIABETES SCREEN DIABETES SCREEN [facility] Start: 02-19-2026 DIABETES SCREEN DIABETES SCREEN [facility] Start: 02-05-2026 DIABETES SCREEN DIABETES SCREEN [facility] Start: 01-22-2026 DIABETES SCREEN DIABETES SCREEN [facility] Start: 01-08-2026 DIABETES SCREEN DIABETES SCREEN [facility] Start: 12-25-2025 DIABETES SCREEN DIABETES SCREEN [facility] Start: 12-17-2025 DIABETES SCREEN DIABETES SCREEN [facility] Start: 11-19-2025 DIABETES SCREEN DIABETES SCREEN [facility] Start: 10-29-2025 DIABETES SCREEN DIABETES SCREEN [facility] Start: 10-11-2025 DIABETES SCREEN DIABETES SCREEN [facility] Start: 10-02-2025 DIABETES SCREEN DIABETES SCREEN [facility] Start: 09-17-2025 DIABETES SCREEN DIABETES SCREEN [facility] Start: 04-09-2024 Colonoscopy COLONOSCOPY [facility] Start: 04-09-2024 COLORECTAL CANCER SCREENING COLORECTAL CANCER SCREENING [facility] Start: 04-09-2024 Screening for malign ant neoplasm of colon Colonoscopy [facility] Start: 01-03-2024 ambulatory Ambulatory Facility:[facility] Start: 10-21-2023 Advance Directive Discussion Advance Directive Discussion [facility] Start: 10-21-2023 Depression Assessment Depression Ass essment [facility] Start: 09-04-2023 Covid-19 Vaccine () Covid-19 Vaccine () [facility] Start: 08-24-2023 End: 10-24-2023 Carcinoembryonic Ag [Mass/volume] in Serum or Plasma CEA BLD Lab Routine Encounter for follow-up surveillance of rectal cancer Expected: 08/24/2023 (Approximate), Expires: 10/24/2023 [facility] Work Phone: Comment on above: Expected: 08/24/2023 (Approximate), Expires: 10/24/2023 Start: 08-03-2023 End: 10-03-2023 Carcinoembryonic Ag [Mass/volume] in Serum or Plasma CEA BLD Lab Routine Encounter for follow-up surveillance of rectal cancer Expected: 08/03/2023, Expires: 10/03/2023 [facility] Work Phone: Comment on above: Expected: 08/03/2023 , Expires: 10/03/2023 Start: 06-21-2023 Covid-19 Vaccine () Covid-19 Vaccine () [facility] Start: 06-21-2023 Influenza vaccination [facility] Start: 06-20-2023 End: 08-20-2023 Carcinoembryonic Ag [Mass/volume] in Serum or Plasma [facility] Work Phone: Comment on above: Expected: 06/20/2023 , Expires: 08/20/2023 Start: 06-20-2023 End: 08-20-2023 CBC W Auto Differential panel - Blood CBC + DIFF Lab Routine Rectal cancer (HCC) Expected: 06/20/2023, Expires: 08/20/2023 [facility] Work Phone: Comment on above: Expected: 06/20/2023 , Expires: 08/20/2023 Start: 06-20-2023 End: 08-20-2023 Comprehensive metabolic 2000 panel - Serum or Plasma COMP METABOLIC PANEL Lab Routine Rectal cancer (HCC) Expected: 06/20/2023, Expires: 08/20/2023 [facility] Work Phone: Comment on above: Expected: 06/20/2023 , Expires: 08/20/2023 Start: 06-20-2023 End: 08-20-2023 Magnesium [Mass/volume] in Serum or Plasma MAGNESIUM BLD Lab Routine Rectal cancer (HCC) Expected: 06/20/2023, Expires: 08/20/2023 [facility] Work Phone: Comment on above: Expected: 06/20/2023 , Expires: 08/20/2023 Start: 05-22-2023 MR Cervical spine WO and W contrast IV [facility] Start: 05-22-2023 MRI of cervical spin e with contrast MR cervical spine wo/w con [facility] Start: 03-05-2023 End: 05-05-2023 Carcinoembryonic Ag [Mass/volume] in Serum or Plasma CEA BLD Lab Routine Rectal cancer (HCC) Expected: 03/05/2023, Expires: 05/05/2023 [facility] Work Phone: Comment on above: Expected: 03/05/2023 , Expires: 05/05/2023 Start: 03-05-2023 End: 05-05-2023 CBC W Auto Differential panel - Blood CBC + DIFF Lab Routine Rectal cancer (HCC) Expected: 03/05/2023, Expires: 05/05/2023 [facility] Work Phone: Comment on above: Expected: 03/05/2023 , Expires: 05/05/2023 Start: 03-05-2023 End: 05-05-2023 Comprehensive metabolic 2000 panel - Serum or Plasma COMP METABOLIC PANEL Lab Routine Rectal cancer (HCC) Expected: 03/05/2023, Expires: 05/05/2023 [facility] Work Phone: Comment on above: Expected: 03/05/2023 , Expires: 05/05/2023 Start: 02-07-2023 End: 04-09-2023 CBC W Auto Differential panel - Blood CBC + DIFF Lab Routine Leg swelling Rectal cancer (HCC) Left ankle swelling Expected: 02/07/2023, Expires: 04/09/2023 [facility] Work Phone: Comment on above: Expected: 02/07/2023 , Expires: 04/09/2023 Start: 02-07-2023 End: 04-09-2023 Comprehensive metabolic 2000 panel - Serum or Plasma COMP METABOLIC PANEL Lab Routine Leg swelling Rectal cancer (HCC) Left ankle swelling Expected: 02/07/2023, Expires: 04/09/2023 [facility] Work Phone: Comment on above: Expected: 02/07/2023 , Expires: 04/09/2023 Start: 01-18-2023 End: 03-20-2023 Carcinoembryonic Ag [Mass/volume] in Serum or Plasma CEA BLD Lab Routine Rectal cancer (HCC) Expected: 01/18/2023, Expires: 03/20/2023 [facility] Work Phone: Comment on above: Expected: 01/18/2023 , Expires: 03/20/2023 Start: 01-18-2023 End: 03-20-2023 CBC W Auto Differential panel - Blood CBC + DIFF Lab Routine Rectal cancer (HCC) Expected: 01/18/2023, Expires: 03/20/2023 [facility] Work Phone: Comment on above: Expected: 01/18/2023 , Expires: 03/20/2023 Start: 01-18-2023 End: 03-20-2023 Comprehensive metabolic 2000 panel - Serum or Plasma COMP METABOLIC PANEL Lab Routine Rectal cancer (HCC) Expected: 01/18/2023, Expires: 03/20/2023 [facility] Work Phone: Comment on above: Expected: 01/18/2023 , Expires: 03/20/2023 Start: 12-25-2022 End: 02-24-2023 CBC W Auto Differential panel - Blood CBC + DIFF Lab Routine Rectal cancer (HCC) Expected: 12/25/2022, Expires: 02/24/2023 [facility] Work Phone: Comment on above: Expected: 12/25/2022 , Expires: 02/24/2023 Start: 12-25-2022 End: 02-24-2023 Comprehensive metabolic 2000 panel - Serum or Plasma COMP METABOLIC PANEL Lab Routine Rectal cancer (HCC) Expected: 12/25/2022, Expires: 02/24/2023 [facility] Work Phone: Comment on above: Expected: 12/25/2022 , Expires: 02/24/2023 Start: 11-21-2022 End: 01-21-2023 Carcinoembryonic Ag [Mass/volume] in Serum or Plasma CEA BLD Lab Routine Rectal cancer (HCC) Abnormal PET scan of lung Pulmonary embolus with infarction (HCC) Rheumatoid arthritis involving multiple sites, unspecified whether rheumatoid factor present (HCC) Expected: 11/21/2022, Expires: 01/21/2023 [facility] Work Phone: Comment on above: Expected: 11/21/2022 , Expires: 01/21/2023 Start: 11-21-2022 End: 01-21-2023 CBC W Auto Differential panel - Blood CBC + DIFF Lab Routine Rectal cancer (HCC) Abnormal PET scan of lung Pulmonary embolus with infarction (HCC) Rheumatoid arthritis involving multiple sites, unspecified whether rheumatoid factor present (HCC) Expected: 11/21/2022, Expires: 01/21/2023 [facility] Work Phone: Comment on above: Expected: 11/21/2022 , Expires: 01/21/2023 Start: 11-21-2022 End: 01-21-2023 Comprehensive metabolic 2000 panel - Serum or Plasma COMP METABOLIC PANEL Lab Routine Rectal cancer (HCC) Abnormal PET scan of lung Pulmonary embolus with infarction (HCC) Rheumatoid arthritis involving multiple sites, unspecified whether rheumatoid factor present (HCC) Expected: 11/21/2022, Expires: 01/21/2023 [facility] Work Phone: Comment on above: Expected: 11/21/2022 , Expires: 01/21/2023 Start: 11-01-2022 End: 01-01-2023 Carcinoembryonic Ag [Mass/volume] in Serum or Plasma CEA BLD Lab Routine Pulmonary embolus with infarction (HCC) Rectal cancer (HCC) Expected: 11/01/2022, Expires: 01/01/2023 [facility] Work Phone: Comment on above: Expected: 11/01/2022 , Expires: 01/01/2023 Start: 11-01-2022 End: 01-01-2023 CBC W Auto Differential panel - Blood CBC + DIFF Lab Routine Pulmonary embolus with infarction (HCC) Rectal cancer (HCC) Expected: 11/01/2022, Expires: 01/01/2023 [facility] Work Phone: Comment on above: Expected: 11/01/2022 , Expires: 01/01/2023 Start: 11-01-2022 End: 01-01-2023 Comprehensive metabolic 2000 panel - Serum or Plasma COMP METABOLIC PANEL Lab Routine Pulmonary embolus with infarction (HCC) Rectal cancer (HCC) Expected: 11/01/2022, Expires: 01/01/2023 [facility] Work Phone: Comment on above: Expected: 11/01/2022 , Expires: 01/01/2023 Start: 10-21-2022 ADVANCE DIRECTIVE DISCUSSION ADVANCE DIRECTIVE DISCUSSION [facility] Start: 10-21-2022 DEPRESSION ASSESSMENT DEPRESSION ASS ESSMENT [facility] Start: 10-01-2022 MR Abdomen WO and W contrast IV [facility] Start: 10-01-2022 MRI of abdomen with contrast MR abdomen wo/w con [facility] Start: 09-17-2022 End: 11-17-2022 Carcinoembryonic Ag [Mass/volume] in Serum or Plasma [facility] Work Phone: Comment on above: Expected: 09/17/2022 , Expires: 11/17/2022 Start: 09-17-2022 End: 11-17-2022 CBC W Auto Differential panel - Blood CBC + DIFF Lab Routine Rectal cancer (HCC) Expected: 09/17/2022, Expires: 11/17/2022 [facility] Work Phone: Comment on above: Expected: 09/17/2022 , Expires: 11/17/2022 Start: 09-17-2022 End: 11-17-2022 Comprehensive metabolic 2000 panel - Serum or Plasma COMP METABOLIC PANEL Lab Routine Rectal cancer (HCC) Expected: 09/17/2022, Expires: 11/17/2022 [facility] Work Phone: Comment on above: Expected: 09/17/2022 , Expires: 11/17/2022 Start: 06-21-2022 Influenza vaccination INFLUENZA (#1) [facility] Start: 11-15-2021 COVID-19 VACCINE (4 - Booster) COVID-19 VACCINE (4 - Booster) [facility] Start: 11-15-2021 COVID-19 VACCINE (6 - Booster) COVID-19 VACCINE (6 - Booster) [facility] Start: 11-15-2021 COVID-19 VACCINE (6 - Mixed Product risk series) COVID-19 VACCINE (6 - Mixed Product risk series) [facility] Start: 10-21-2021 ADVANCE DIRECTIVE DISCUSSION ADVANCE DIRECTIVE DISCUSSION [facility] Start: 10-21-2021 DEPRESSION ASSESSMENT DEPRESSION ASS ESSMENT [facility] Start: 08-04-2021 DIABETES SCREEN DIABETES SCREEN [facility] Start: 02-17-2021 COVID-19 VACCINE (3 - Booster for Pfizer series) COVID-19 VACCINE (3 - Booster for Pfizer series) [facility] Start: 11-19-2020 SHINGRIX VACCINE (2 of 2) NICOLAS GRIX VACCINE (2 of 2) [facility] Start: 2017 PNEUMOCOCCAL: 65+ (1 - PCV) PNEUMOCOCCAL: 65+ (1 - PCV) [facility] Start: 2012 RSV Vaccine (1 - 1-d ose 60+ series) RSV Vaccine (1 - 1-dose 60+ series) [facility] Start: 2002 SHINGRIX VACCINE (1 of 2) NICOLAS GRIX VACCINE (1 of 2) [facility] Start: 1997 COLOGUARD (FIT-DNA) COLOGUARD (FIT-D NA) [facility] Start: 1997 Colonoscopy COLONOSCOPY [facility] Start: 1997 COLORECTAL CANCER SCREENING COLORECTAL CANCER SCREENING [facility] Start: [address] COLONOGRAPHY [facility] Start: 1997 FECAL OCCULT BLOOD FECAL OCCULT BLOO D [facility] Start: 1997 Screening for malign ant neoplasm of colon [facility] Start: 1997 SIGMOIDOSCOPY SIGMOIDOSCOPY [facility] Start: 1987 Lipid 1996 panel - S regina or Plasma Lipid Screening [facility] Start: 1987 Lipid panel Lipid Screening [facility] Start: 1987 LIPID SCREEN LIPID SCREEN [facility] Start: 1971 Urine microalbumin profile [facility] Start: 1970 HEPATITIS C SCREENING HEPATITIS C [facility] Start: 1970 Hepatitis C screening Hepatitis C [facility] Carcinoembryonic Ag [Mass/volume] in Serum or Plasma CEA BLD Lab Routine Rectal cancer (HCC) Primary hypercoagulable state (HCC) Rheumatoid arthritis involving multiple sites, unspecified whether rheumatoid factor present (HCC) 03/19/2023 8:23 AM [facility] Work Phone: Carcinoembryonic Ag [Mass/volume] in Serum or Plasma CEA BLD Lab Routine Rectal cancer (HCC) 04/16/2023 8:53 AM T [facility] Work Phone: Carcinoembryonic Ag [Mass/volume] in Serum or Plasma CEA BLD Lab Routine Rectal cancer (HCC) 05/28/2023 9:15 AM [facility] Work Phone: End: 10-09-2024 Carcinoembryonic Ag [Mass/volume] in Serum or Plasma CEA BLD Lab Routine Encounter for follow-up surveillance of rectal cancer Every 3 months for 4 Occurrences starting 10/10/2023 until 10/09/2024 [facility] Work Phone: Comment on above: Every 3 months for 4 Occurrences starting 10/10/2023 until 10/09/2024 End: 12-18-2022 CBC W Auto Differential panel - Blood CBC + DIFF Lab Routine Rectal cancer (HCC) Once per week for 6 Occurrences starting 11/07/2022 until 12/18/2022 [facility] Work Phone: Comment on above: Once per week for 6 Occurrences starting 11/07/2022 until 12/18/2022 End: 02-08-2024 COLONOSCOPY DIAGNOSTIC COLONOSCOPY DIAGNOSTIC Endoscopy Routine Rectal cancer (HCC) 1 Occurrences starting 02/07/2023 until 02/08/2024 [facility] Work Phone: Comment on above: 1 Occurrences starti ng 02/07/2023 until 02/08/2024 End: 12-19-2023 Ct abdomen & pelvis w/contrast material CT ABD/PEL W IVCON Radiology Routine Lung nodules Rectal cancer (HCC) 1 Occurrences starting 11/19/2022 until 12/19/2023 [facility] Work Phone: Comment on above: 1 Occurrences starti ng 11/19/2022 until 12/19/2023 End: 06-01-2024 Ct abdomen w/contrast material CT ABDOMEN W IVCON Radiology Routine Malignant neoplasm of rectum (HCC) 1 Occurrences starting 05/03/2023 until 06/01/2024 [facility] Work Phone: Comment on above: 1 Occurrences starti ng 05/03/2023 until 06/01/2024 End: 07-24-2024 Ct abdomen w/contrast material CT ABDOMEN W IVCON Radiology Routine Malignant neoplasm of rectum (HCC) 1 Occurrences starting 06/25/2023 until 07/24/2024 [facility] Work Phone: Comment on above: 1 Occurrences starti ng 06/25/2023 until 07/24/2024 End: 12-19-2023 CT CHEST W IVCON CT CHEST W IVCON Radiology Routine Lung nodules 1 Occurrences starting 11/19/2022 until 12/19/2023 [facility] Work Phone: Comment on above: 1 Occurrences starti ng 11/19/2022 until 12/19/2023 End: 06-01-2024 CT CHEST W IVCON CT CHEST W IVCON Radiology Routine Malignant neoplasm of rectum (HCC) 1 Occurrences starting 05/03/2023 until 06/01/2024 [facility] Work Phone: Comment on above: 1 Occurrences starti ng 05/03/2023 until 06/01/2024 End: 07-24-2024 CT CHEST W IVCON CT CHEST W IVCON Radiology Routine Malignant neoplasm of rectum (HCC) 1 Occurrences starting 06/25/2023 until 07/24/2024 [facility] Work Phone: Comment on above: 1 Occurrences starti ng 06/25/2023 until 07/24/2024 CT SIM PLANNING RADI ATION ONCOLOGY CT SIM PLANNING RADIATION ONCOLOGY Radiology Routine Rectal adenocarcinoma (HCC) Ordered: 09/24/2022 [facility] Work Phone: Comment on above: Ordered: 09/24/2022 End: 2023 ECG COMPLETE ECG COMPLETE ECG Routine Adenopathy 1 Occurrences starting 2022 until 2023 [facility] Work Phone: Comment on above: 1 Occurrences starti ng 2022 until 2023 IR PORTOCATH PLACEMENT IR PORTOC ATH PLACEMENT Radiology Routine Rectal cancer (HCC) Ordered: 12/17/2022 [facility] Work Phone: Comment on above: Ordered: 12/17/2022 End: 10-17-2023 Mri abdomen w/o & w/contrast material MRI ABDOMEN WO/W IVCON Radiology Routine Rectal cancer (HCC) 1 Occurrences starting 09/17/2022 until 10/17/2023 [facility] Work Phone: Comment on above: 1 Occurrences starti ng 09/17/2022 until 10/17/2023 End: 03-08-2024 Mri pelvis w/o & w/contrast material MRI RECTUM WO/W IVCON Radiology Routine Malignant neoplasm of rectum (HCC) 1 Occurrences starting 02/07/2023 until 03/08/2024 [facility] Work Phone: Comment on above: 1 Occurrences starti ng 02/07/2023 until 03/08/2024 End: 06-01-2024 Mri pelvis w/o & w/contrast material MRI RECTUM WO/W IVCON Radiology Routine Malignant neoplasm of rectum (HCC) 1 Occurrences starting 05/03/2023 until 06/01/2024 [facility] Work Phone: Comment on above: 1 Occurrences starti ng 05/03/2023 until 06/01/2024 End: 10-17-[address] attenuation skull base mid-thigh NM PET/CT SKULL-THIGH INITIAL Radiology Routine Rectal cancer (HCC) 1 Occurrences starting 09/17/2022 until 10/17/2023 [facility] Work Phone: Comment on above: 1 Occurrences starti ng 09/17/2022 until 10/17/2023 SARS-CoV-2 (COVID-19 ) RNA [Presence] in Respiratory specimen by MIGUE with probe detection SELF CHECK COVID Microbiology Routine Adenopathy Ordered: 2022 [facility] Work Phone: Comment on above: Ordered: 2022 End: 05-03-2024 SIGMOIDOSCOPY SIGMOIDOSCOPY Endoscopy Routine Encounter for follow-up surveillance of rectal cancer 1 Occurrences starting 05/03/2023 until 05/03/2024 [facility] Work Phone: Comment on above: 1 Occurrences starti ng 05/03/2023 until 05/03/2024 End: 07-24-2024 SIGMOIDOSCOPY SIGMOIDOSCOPY Endoscopy Routine Encounter for follow-up surveillance of rectal cancer 1 Occurrences starting 07/24/2023 until 07/24/2024 [facility] Work Phone: Comment on above: 1 Occurrences starti ng 07/24/2023 until 07/24/2024 End: 02-21-2024 US DVT LOWER LEFT US DVT LOWER LEFT Radiology Routine Leg swelling 1 Occurrences starting 01/22/2023 until 02/21/2024 [facility] Work Phone: Comment on above: 1 Occurrences starti ng 01/22/2023 until 02/21/2024 [facility] Immunizations Immunization Date Immunization Notes Care Provider Juwan sanford 09-20-2021 COVID-19 original vaccine, age 12+ yr, monovalent (PFIZER-BIONTECH - PURPLE TOP) Minerva Anderson MD Work Phone: [facility] 09-20-2021 COVID-19 vaccine (UNSPECIFIED) Minerva Anderson MD Work Phone: [facility] 07-25-2021 influenza, high dose seasonal, preservative-free Minerva Anderson MD Work Phone: [facility] 07-25-2021 influenza virus vaccine, unspecified formulation Deborah Norman MD Work Phone: [facility] 12-23-2020 COVID-19 vaccine (UNSPECIFIED) Minerva Anderson MD Work Phone: [facility] 12-23-2020 SARS-CoV-2 (COVID-19) mRNA BNT-162b2 Sopheonx Lorenzo TOMAS [facility] 12-02-2020 COVID-19 vaccine (UNSPECIFIED) Minerva Anderson MD Work Phone: [facility] 12-02-2020 SARS-CoV-2 (COVID-19) mRNA BNT-162b2 Sopheonx LorenzoJammit [facility] Comment on above: Result Comment: Impa ctsiis scanned 10-21-2020 SARS-CoV-2 (COVID-19) mRNA BNT-162b2 vax LorenzoJammit [facility] Comment on above: Result Comment: Pt i s fully vaccinated but does not know the dates 09-24-2020 zoster vaccine recombinant Lorenzo OLSON [facility] 07-21-2020 influenza, high-dose, quadrivalent vaccine (FLUZONE HIGH DOSE QUADRIVALENT) Minerva Anderson MD Work Phone: [facility] 09-15-2019 pneumococcal polysaccharide vaccine, 23 valent Lorenzo OLSON [facility] 07-27-2019 influenza nasal, unspecified formulation Minerva Anderson MD Work Phone: [facility] 07-27-2019 influenza virus vaccine, unspecified formulation Lorenzo OLSON [facility] 07-14-2018 pneumococcal conjugate vaccine, 13 valent Lorenzo OLSON [facility] 10-25-2009 novel [id number], preservative-free, injectable Minerva Anderson MD Work Phone: [facility] 03-31-1997 hepatitis B vaccine, adult dosage Minerva Anderson MD Work Phone: [facility] NEGATED: Highlighted row has not occurred! 8 pneumococcal polysaccharide vaccine, 23 valent Patient Objection Valencia Torres Other [employer] Other Payers Date Payer Category Payer Self-pay 2022 Unknown [id number] 2022 Medicare [id number] 2019 Unknown [id number] 2017 Medicare MEDICARE MEDICAR E A AND B [id number] 2017-Present [phone] [place] [address] Medicare [id number] 2017 Medicare [id number] 1959 Medicare [id number] 1959 Unknown [id number] 1952 Unknown [id number] 1952 Unknown [id number] [id number]3 1952 Unknown [id number] 2.16.840.1.399111.3.579.2.593 1952 Unknown [id number] 2.16.840.1.830683.3.579.2.593 1952 Unknown [id number] 2.16.840.1.120614.3.579.2.1259 1952 Unknown [id number] 2.16.840.1.318152.3.579.2.727 1952 Unknown [id number] 2.16.840.1.984757.3.579.2.727 1952 Unknown [id number] 2.16.840.1.953457.3.579.2.727 1952 Unknown [id number] 2.16.840.1.258729.3.579.2.727 1952 Unknown [id number] 2.16.840.1.135172.3.579.2.727 1952 Unknown [id number] 2.16.840.1.868894.3.579.2.727 1952 Unknown [id number] 2.16.840.1.922076.3.579.2.727 1952 Unknown [id number] 2.16.840.1.737819.3.579.2.727 1952 Unknown [id number] 2.16.840.1.164362.3.579.2.72 1952 Unknown [id number] 2.16.840.1.187692.3.579.2.727 1952 Unknown [id number] 2.16.840.1.519888.3.579.2.72 1952 Unknown [id number] 2.16.840.1.595937.3.579.2.727 1952 Unknown [id number] 2.16.840.1.067419.3.579.2.72 Unknown [facility] [id number] Unknown [id number] [id number] Unknown [id number] 2.16.840.1.883707.3.579.2.531 Unknown [id number] 2.16.840.1.599501.3.579.2.531 Unknown [id number] Social History Date Type Detail Facility Start: 07-11-2021 End: 12-25-2022 Tobacco smoking status Never smoked tobacco (finding) [facility] Tobacco smoking status Never [facility] Start: 02-21-2023 End: 04-16-2023 Sex Assigned At Male [facility] Start: 08-04-2018 End: 12-25-2022 Tobacco use and exposure Smokeless tobacco non-user [facility] Start: 08-04-2018 End: 11-05-2023 Alcohol intake Current drinker of alcohol (finding) [facility] Start: 08-04-2018 [facility] Start: 1950 Sex Assigned At Not on file [facility] Start: 09-07-2022 End: 09-24-2022 Exposure to SARS-CoV-2 (event) Not sure [facility] Start: 1950 Sex Assigned At Male [facility] Start: 02-21-2023 End: 04-16-2023 History of Social function [facility] NEGATED: Highlighted rowStart: DORY History of tobacco use Passive smoker [facility] Medical Equipment Procedure Code Equipment Code Equipment Origin al Text Equipment Identifier Dates -12/20/2022 [id number] Start: 12-20-2022 Comment on above: Description: [facility] ; Saline only flushes Functional Status Date Assessment Result Facility 10-09-2023 Functional Status N/A [facility] 05-07-2023 Functional Status N/A [facility] 04-29-2023 Functional Status No [facility] 03-18-2023 Functional Status N/A [facility] 01-22-2023 Functional Status No [facility] 10-24-2022 Functional Status N/A [facility] 10-03-2022 Functional Status No [facility] 08-20-2022 Functional Status N/A [facility] 08-14-2022 Functional Status N/A [facility] [place] 05-31-2022 Functional Status N/A [facility] Family Medicine [place] 04-03-2022 Functional Status N/A [facility] Clinical Notes 11-14-2019 to 12-03-2023 [facility] Blessed Flavio, RT(R) - 12/03/2023 2:00 PM Noris Mcintosh RN - 12/03/2023 2:00 PM Chelsie Dover RN - 10/10/2023 8:33 AM EST Note Date & Type Note Facility 12-03-2023 Miscellaneous Notes Formattin g of this note might be different from the original. Radiology Service Progress Note PATIENT NAME: Mervat Damon DATE OF SERVICE: December 03, 2023 TIME: 2:36 PM PATIENT IDENTITY VERIFICATION COMPLETED USING TWO (2) IDENTIFIERS: Name and Date of confirmed by patient verbally and Name and Date of confirmed by identification band. FALL SCREENING: Has the patient had 2 falls in the last year or 1 fall with injury or currently using an Ambulatory Assistive Device (Walker, Cane, Wheelchair, Crutches, etc.)? No PATIENT GENDER DATA: Male PATIENT RELEVANT IMPLANT DATA REVIEWED: Yes PATIENT PRESENTS WITH AN IMPLANTABLE OR ATTACHED ADMINISTRATIVE ASST: No RADIOLOGY DEPARTMENT: MR; Exam(s) Completed: Body: Rectal PERIPHERAL IV DATA: Not applicable SIGNED BY: LUBA VazquezR) Adrianne Herrera [facility] December 03, 2023 2:36 PM documented in this encounter [facility] 12-03-2023 Nurse Note Radiology Service Progress Note DATE OF SERVICE: December 03, 2023 TIME: 1:54 PM PATIENT WEIGHT: 250LBS PATIENT IDENTITY VERIFICATION COMPLETED USING TWO (2) STANDARD IDENTIFIERS: Name and Date of confirmed by patient verbally and Name and Date of confirmed by identification band. FALL SCREENING: Has the patient had 2 falls in the last year or 1 fall with injury or currently using an Ambulatory Assistive Device (Walker, Cane, Wheelchair, Crutches, etc.)? No PATIENT GENDER DATA: Male ALLERGIES: Reviewed and unchanged CONTRAST ALLERGY: No EXAM: MRI - CONTRAST TYPE: GROUP II IV SITE: Ambulatory: A power injectable Mediport was accessed in the Right chest with a 0.75 inch 20 gauge needle. Blood Return, Flushed easily with normal saline, Good Blood Return Post Injection, and No Complications IV SITE APPEARANCE: Clean,Dry and Intact SIGNATURE: Noris Hong RN PATIENT NAME: Mervat Damon DATE: December 03, 2023 TIME: 1:54 PM documented in this encounter [facility] 11-21-2023 Note [facility] 11-05-2023 Note HNO ID: [id number] Author: CHELSIE RÍOS RN Service: ? Author Type: Registered Nurse Type: Progress Notes Filed: 11/05/2023 10:53 Note Text: Sigmoidoscopy order [facility] 10-10-2023 Note HNO ID: [id number] Author: Chelsie Ríos RN Service: ? Author Type: Registered Nurse Type: Progress Notes Filed: 10/10/2023 9:08 AM Note Text: CEA order [facility] 10-10-2023 History of Presen t illness Narrative CEA order documented in this encounter [facility] 10-09-2023 Evaluation + Plan note Extrac swati from: Title:Pain Managment Follow up Author:Cyndee Morales Date:10/09/23 Impression and Plan Patient is a 73-year-old male with a past medical history significant for lumbar spondylosis, lumbar stenosis and lumbar neuritis. he underwent a full course of physical therapy without improvement. Quzp-ffx-vjjphyu medications have not helped. He is not [...] Date:11/01/2023 01:45:00 PM Scheduled Provider:Santiago Kong MD Location:.[facility] Appointment Type:Cardiology Follow Up (FT) Appointment Date:01/03/2024 09:45:00 AM Scheduled Provider:Corey MCKEE MD Location:[facility] Appointment Type:URO Office Visit Future Scheduled Tests Radiology* XR Abdomen 1 View 09/20/22 [facility]11-08-2023 Miscellaneous Notes* Telephone Encounter - Chelsie Ríos [...] you for your help. documented in this encounterSalem [facility]11-07-2023 Note [id number]#[id number] 08-27-20[facility]2023 NoteHNO ID: [id number] Author: Chelsie Ríos RN Service: ? Author Type: Registered Nurse Type: Progress Notes Filed: 07/24/2023 2:27 PM Note Text: CEA and sigmoid[facility]23 History of Present illness Narrative* Chelsie Ríos RN - 07/24/2023 2:22 PM EDT CEA and sigmoidoscopy order documented in this encounterSalem [facility] Center09-26-2023 Evaluation note* Encounter Date Diagnosis Assessment [...] M54.50) Reviewed xray of low back from [facility] 05/21/2023, which shows there is prominent narrowing [...] ROM/ pain is minimal with Physical Therapy. [facility] Other 09-19-2023 Miscellaneous Notes* Anesthesia PreOp - [...] 2023 TIME: 9:22 AM documented in this encounterSalem [facility] Center09-05-2023 NoteHNO ID: [id number] Author: Chelsie Ríos RN Service: ? Author Type: Registered Nurse Type: Progress Notes Filed: 06/25/2023 4:02 PM Note Text: CT chest, CT abdomen ordersC[facility]09-[facility]-2023 History of Present illness Narrative* Chelsie Ríos RN - 06/25/2023 3:[address] chest, CT abdomen orders documented in this encounterSalem Regional Medical Center08-31-2023 [facility]08-31-2023 Miscellaneous Notes* Telephone Encounter - Andree Hollis APRN.CNP - 06/20/2023 10:44 AM EDT The following approved medication requests have been transmitted electronically. Requested Prescriptions Signed Prescriptions Disp Refills gabapentin (NEURONTIN) 300 mg capsule 30 capsule 0 Sig: Take 1 capsule by mouth daily at bedtime for 30 days. Authorizing Provider: ANDREE HOLLIS APRN.CNP * Telephone Encounter - Denisha [...] Would like script sent to [facility]. RACIEL/Andree: Script pended. Denisha Duarte RN documented in this encounterSalem [facility] Medical Center08-30-2023 Miscellaneous Notes* Telephone Encounter - Denisha [...] labs. Denisha Duarte RN documented in this encounterSalem Regional Medical Center08-29-2023 Evaluation note* Encounter Date Diagnosis Assessment [...] 6 months. May, Neuropathy (ICD-10 - G62.9) [facility] Other [id number] NoteCleveland [facility]08-08-2023 History of Present illness Narrative* Minerva Anderson MD - 05/28/2023 7:41 AM EDT PATIENT NAME: Mervat Damon DATE: 05/28/2023 PRIMARY CARE PHYSICIAN: Dr. Lorenzo Olson OTHER [...] - Squamous mucosa polyp. 08/20/2022 Colonoscopic biopsy ([facility]) Adenocarcinoma of colon (mass at anal verge) [...] polyp was benign. 01/22/2023 Lower extremity Doppler ([facility]) Extensive deep venous thrombosis of the left [...] related to the thorax. 10/01/2022 MRI abdomen ([facility]) No MRI evidence of liver lesion 09/25/2022 [...] No neoplastic hypermetabolic lesions 09/11/2022 MRI pelvis ([facility]) Low rectal neoplasm with suspected early invasion of the internal anal sphincter at the upper canal(MRI category T3b, N0). Few nonenlarged 2 to 3 mm mesorectal lymph nodes. No suspicious lymphadenopathy. 09/11/2022 CT chest, abdomen, pelvis ([facility]) Possible low-attenuation lesion right hepatic lobe under [...] arrange for port flush in 6 weeks. Iw[place]ita see him back in 12 weeks for [...] indefinitely. Minerva Anderson MD documented in this encounterSalem Regional Medical Center07-25-2023 Miscellaneous Notes* Telephone Encounter - Denisha Duarte RN - 05/14/2023 8:22 AM EDT Pt here for repeat potassium today. Lab orders pended. Denisha Duarte RN documented in this encounterSalem Regional Medical Center07-18-2023 Evaluation + Plan note Extracted from: [...] Tests Radiology* XR Abdomen 1 View 09/20/22 [facility]07-14-2023 Miscellaneous Notes* Telephone Encounter - Chelsie [...] his best option for colonoscopy. Contact #: [phone] documented in this encounterSalem Regional Medical Center07-14-2023 Miscellaneous Notes* Telephone Encounter - Chelsie [...] and CT in September. documented in this encounterSalem Regional Medical Center07-14-2023 Miscellaneous Notes* Telephone Encounter - Chelsie Ríos RN - 05/03/2023 9:21 AM EDT Sigmoidoscopy, CEA, MRI rectum and CT chest/abd orders Flex sig and CEA in q 3 month until March [address] in q 6 months until March 2025 documented in this encounterSalem Regional Medical Center07-10-2023 Hospital Discharge instructions Patient Education 04/29/2023 09:33:46 Heart-Healthy Eating Plan, Yrnk-db-Orne Heart-Healthy Eating Plan Heart-healthy meal planning includes: [...] Fats and oils Meat fat, or shortening. [place] butter, hydrogenated oils, palm oil, coconut oil, [...] provider. Document Revised: 02/15/2022 Document Reviewed: 02/15/2022 TV Volume Wizard App Patient Education 2021 [employer] Follow Up Care 01/22/2023 16:31:22 With:Dilan ARRINGTON, Santiago Matos. Address: When:6 months Comments:Call for sooner apt with new/worsening symptoms [facility]07-07-2023 Miscellaneous Notes* Telephone Encounter - Sonam Lazo [...] Verify if he is taking a supplement. Thanks, B documented in this encounterSalem Regional Medical Center06-27-2023 NoteC[facility]06-22-2023 Evaluation note* Encounter Date Diagnosis Assessment [...] or others. We will follow-up with PCP [facility]'s behavioral health and crisis line [phone] given. Mar, Encounter for tobacco use screening (ICD-10 - Z01.89) Tobacco screening completed never smoker. [facility] Other 06-20-2023 History and physical note* Tova [...] 2023 TIME: 12:18 PM documented in this encounterSalem Regional Medical Center06-07-2023 Miscellaneous Notes* Telephone Encounter - Columba [...] 03/27/2023 12:47 PM EDT Will see if Arrey schedule team can assist patient in getting MRI sooner if insurance allows. * Telephone Encounter - Minerva Anderson MD - 03/26/2023 2:53 PM EDT The patient was instructed per my chart to hold Xarelto x2 days prior to procedure, and resume 1 day after if no evidence of bleeding. Thanks, BR M * Telephone Encounter - Alpa Carr RN - 03/26/2023 1:53 PM EDT Will reach out to Dr. Minerva Anderson MD and nursing team for orders to hold Xarelto x2 days prior to scheduled colonoscopy on 04/09/23. documented in this encounterSalem Regional Medical Center06-06-2023 Miscellaneous Notes* Telephone Encounter - Chelsie Ríos RN - 03/26/2023 1:55 PM EDT Returned call. Told him he can either call the office or send a My Chart message and I'd be happy to answer his questions. * Telephone Encounter - Bre Pruitt - 03/26/2023 1:42 PM EDT Patient called with questions about Colonoscopy and MRI would like to speak with someone. PH:[phone] documented in this encounterSalem Regional Medical Center06-06-2023 Miscellaneous Notes* Telephone Encounter - Denisha [...] pt. Denisha Duarte RN documented in this encounterSalem Regional Medical Center05-31-2023 Miscellaneous Notes* Telephone Encounter - ROYCE [...] the population without disease(benign polymorphism). Please see Uskape message for further discussion. Santiago Lema MS, [facility] Licensed, Certified Genetic Counselor documented in this encounterSalem Regional Medical Center05-30-2023 NoteC[facility]05-30-2023 History of Present illness Narrative* Minerva [...] muscle spasms. He was seen at the [facility] ER on 03/18/2023 for evaluation. Work-up including [...] wounds or petechiae. PATHOLOGY: 08/20/2022 Colonoscopic biopsy ([facility]) Adenocarcinoma of colon (mass at anal verge) Mismatch repair gene -normal expression RADIOLOGY/OTHER STUDIES: 01/22/2023 Lower extremity Doppler ([facility]) Extensive deep venous thrombosis of the left [...] related to the thorax. 10/01/2022 MRI abdomen ([facility]) No MRI evidence of liver lesion 09/25/2022 [...] No neoplastic hypermetabolic lesions 09/11/2022 MRI pelvis ([facility]) Low rectal neoplasm with suspected early invasion of the internal anal sphincter at the upper canal(MRI category T3b, N0). Few nonenlarged 2 to 3 mm mesorectal lymph nodes. No suspicious lymphadenopathy. 09/11/2022 CT chest, abdomen, pelvis ([facility]) Possible low-attenuation lesion right hepatic lobe under [...] indefinitely. Minerva Anderson MD documented in this encounterSalem Regional Medical Center05-29-2023 Hospital Discharge instructions Patient Education 03/18/2023 [...] avoid intense exercise for several days. Take xxdt-vxg-nmelpvk and prescription medicines only as told by [...] provider. Document Revised: 04/27/2022 Document Reviewed: 04/27/2022 TV Volume Wizard App Patient Education 2022 [employer] 03/18/2023 13:40:26 Community-Acquired Pneumonia, Adult Community-Acquired Pneumonia, [...] Follow these instructions at home: Medicines Take zjxm-wtk-rvelfwn and prescription medicines only as told by [...] and water are not available, use hand pre k teacher. Contact a health care provider if you [...] provider. Document Revised: 07/19/2020 Document Reviewed: 07/19/2020 TV Volume Wizard App Patient Education 2022 [employer] Follow Up Care 03/18/2023 10:25:52 With:Lorenzo OLSON Address: [address] [address]- Business (1) When:03/21/2023 13:34:29 Comments:Return to the emergency room if your shortness of breath gets worse, your neck pain gets worse or any new symptoms. Be aware that both [place] and Flexeril can cause drowsiness. [facility]05-29-2023 Evaluation + Plan noteExtracted from: Title:ED Note Author:Corrina Rogers, Yuridia Pineda te:03/18/23 1. Pneumonia (J18.9: Pneumon ia, unspecified organism) 2. Neck muscle spasm (M62.838: Other muscle spasm) Ordered: acetaminophen-hydrocodone, 1 tab(s), Oral, q6hr as needed for pain, 10 tab(s), Refill(s) 0, [id number], 188, cm, 03/18/23 10:50:00 EDT, Height/Length Dosing, 111, kg, 03/18/23 10:50:00 EDT, Weight Dosing Orders: acetaminophen-oxycodone, 1 tab(s), Tab, Oral, Once, Stop date 03/18/23 11:55:00 EDT, STAT, Start date 03/18/23 11:55:00 EDT azithromycin, = 1 packet(s), Oral, As Directed, as directed on package labeling, X 5 day(s), # 6 tab(s), Refills(s) 0, Pharmacy: [facility] #[id number], 188, cm, 03/18/23 10:50:00 EDT, Height/Length Dosing, 111, kg, 03/18/23 10:50:00 EDT, Weight Dosing cyclobenzaprine, 10 mg = 1 tab(s), Oral, TID, PRN for spasm, # 20 tab(s), Refills(s) 0, Pharmacy: [facility] #[id number], 188, cm, 03/18/23 10:50:00 EDT, Height/Length Dosing, [...] Tests Radiology* XR Abdomen 1 View 09/20/22 [facility]05-24-2023 [facility]05-24-2023 NoteC[facility]05-24-2023 History of Present illness Narrative* Dania Vásquez MD - 03/13/2023 10:31 AM EDT Radiation Oncology - Follow Up Note PATIENT NAME: Mervat Damon PATIENT DIAGNOSIS: Adenocarcinoma of the lower rectum MRI staged [id number] RADIATION SUMMARY: DATES OF TREATMENT: 10/08/2022- 11/19/2022 [...] by: Dania Vásquez MD cc: Lorenzo Olson [address] [place] [address] No referring provider defined for this encounter. documented in this encounterSalem Regional Medical Center05-16-2023 NoteHNO ID: [id number] Author: Emilia Olivas RN Service: ? Author Type: Registered Nurse Type: Progress Notes Filed: 03/05/2023 12:55 PM Note Text: HM back to tx room to give pt information on potassium rich diet. Emilia Olivas RNCleveland Clinic Marymount Hospital05-16-2023 NoteC[facility]05-16-2023 History of Present illness Narrative* Emilia Olivas RN - 03/05/2023 9:50 AM EDT HM back to tx room to give pt information on potassium rich diet. Emilia Olivas RN documented in this encounterSalem Regional Medical Center05-09-2023 Miscellaneous Notes* Telephone Encounter - Samantha Hi RPh - 02/26/2023 12:19 PM EDT Approved for free Xarelto from [employer] through 10/20/23. Prescriptions are filled at their internal pharmacy [facility] JPAO phone [phone] documented in this encounterSalem Regional Medical Center05-02-2023 [facility]05-02-2023 History of Present illness Narrative* Minerva Anderson MD - 02/19/2023 7:22 AM EDT PATIENT NAME: Mervat Damon DATE: 02/19/2023 PRIMARY CARE PHYSICIAN: Dr. Lorenzo Olson OTHER PHYSICIANS: Dr. Mervat Slaughter, Dr. Thalia Troy, Dr. Kiko Treadwell, Dr. Vásquez, Dr. eMrt Krueger, Dr. Shaheed Norman Portions of this [...] wounds or petechiae. PATHOLOGY: 08/20/2022 Colonoscopic biopsy ([facility]) Adenocarcinoma of colon (mass at anal verge) Mismatch repair gene -normal expression RADIOLOGY/OTHER STUDIES: 01/22/2023 Lower extremity Doppler ([facility]) Extensive deep venous thrombosis of the left [...] related to the thorax. 10/01/2022 MRI abdomen ([facility]) No MRI evidence of liver lesion 09/25/2022 [...] No neoplastic hypermetabolic lesions 09/11/2022 MRI pelvis ([facility]) Low rectal neoplasm with suspected early invasion of the internal anal sphincter at the upper canal(MRI category T3b, N0). Few nonenlarged 2 to 3 mm mesorectal lymph nodes. No suspicious lymphadenopathy. 09/11/2022 CT chest, abdomen, pelvis ([facility]) Possible low-attenuation lesion right hepatic lobe under [...] indefinitely. Minerva Anderson MD documented in this encounterSalem Regional Medical Center04-27-2023 NoteC[facility]04-20-2023 NoteC[facility]04-20-2023 Nurse Note* Alpa Carr RN - [...] Temperature: No Drains: No documented in this encounterSalem Regional Medical Center04-20-2023 History of Present illness Narrative* Deborah Norman MD - 02/07/2023 2:20 PM EDT COLORECTAL SURGERY February 06, 2023 Mervat Damon 72 year old This consult was requested by Dr. Krueger and my final recommendations will be communicated to the requesting health care provider by way of the shared medical record for internal providers or letter via the [employer] Service for external providers. Chief Complaint: rectal [...] He had his surgical care established in [place] but wishes to transfer to [place]. Heis doing well with chemotherapy so far. [...] Digital rectal exam reveals indurated ulcer anterior Health Care Attorney present: Yes, Alpa Carr Anoscopy: The patient [...] Reviewed/ordered: Review of prior notes from Dr. Anderson, Dr. Krueger Review of Pathology Review of Imaging: CT Abdomen, MRI Pelvis Review of Labs: CBC, BMP, LFT, Albumin Review of Procedures / Tests: Colonoscopy I have independently interpreted: MRI Pelvis I have discussed Mervat Damon's treatment plan and/or results with Dr. Anderson, Dr. Krueger. Risk of morbidity, mortality and/or complications of treatment plan: high Deborah Norman MD Colorectal Surgery documented in this encounterSalem Regional Medical Center04-18-2023 NoteC[facility]04-17-2023 NoteC[facility]04-17-2023 History of Present illness Narrative* Mert [...] mass. After that he saw, oncology in [place]. Plan was to start chemo and radiation before surgery He had radiation for 21 days then started chemo He is getting currently 4th cycle of chemo Previous OV 09-05-2022 Thalia Troy MD Diagnosis Plan 1. Adenocarcinoma of rectum (CMS/HCC) Ambulatory referral to Oncology Ambulatory referral to Oncology 08-22-2022 Dr Fragoso Raffi Damon is a 71 yo male with [...] and internal hemorrhoids. He was evaluated at [facility] on 08/20/22 via flexible sigmoidoscopy demonstrating a [...] (L) 0.83 (L) 0.71 (L) 0.79 (L) Mingo% % 8.7 9.5 9.2 11.1 10.6 9.7 8.9 Abs Mingo <0.87 k/uL 0.53 0.55 0.78 0.64 0.74 [...] and internal hemorrhoids. He was evaluated at [facility] on08/20/22 via flexible sigmoidoscopy demonstrating a friable, firm lesion encompassing dwucboushvjuf79-15% of the circumference of the anus right [...] this well Was seen by surgery at [place] but prefers to keep his care at [...] No follow-ups on file. documented in this encounterSalem Regional Medical Center04-06-2023 Miscellaneous Notes* Telephone Encounter - Denisha [...] RN * Telephone Encounter - Andree Hollis APRN.ARACELY - 01/23/2023 10:52 AM EDT Signed. Andree Hollis APRN.INSEAM LEVELER * Telephone Encounter - Denisha Duarte RN [...] he see Dr. Kebede who is at [facility]/[place], and hopefully easier to get into thanthe [...] If so, pt would like referred to [facility] and asks who you [...] BID. Script will be sent to [facility] pharmacy. Pt present in office at time of call. Pt notified of 's recommendations and verbalizes understanding. 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 Denisha Duarte RN documented in this encounterSalem Regional Medical Center04-04-2023 Miscellaneous Notes* Telephone Encounter - Denisha Duarte RN - 01/22/2023 1:35 PM EDT Voicemail message received from [facility] Central Scheduling. States that they are still waiting for ouroffice to fax the pt's US order. Asks that we send it to [phone]. Order faxed to the above number as requested. Denisha Duarte RN documented in this encounterSalem Regional Medical Center04-04-2023 NoteC[facility]04-04-2023 NoteC[facility]04-04-2023 NoteC[facility]04-04-2023 History of Present illness Narrative* Hoa Owen, JONAS - 01/22/2023 10:24 AM EDT Oncology Nutrition [...] Owen MS, RDN, LD documented in this encounterSalem Regional Medical Center04-04-2023 History of Present illness Narrative* Ashley Godinez RN - 01/22/2023 9:29 AM EDT Patient to get an US of LLE edema per Andree. Would like it a [facility]. front desk assistant notified of another appointment that patient has today at [address] there. Ashley Godinez RN documented in this encounterSalem Regional Medical Center04-04-2023 History of Present illness Narrative* Andree Hollis APRN.INSEAM LEVELER - 01/22/2023 8:49 AM EDT PATIENT NAME: [...] wounds or petechiae. PATHOLOGY: 08/20/2022 Colonoscopic biopsy ([facility]) Adenocarcinoma of colon (mass at anal verge) [...] related to the thorax. 10/01/2022 MRI abdomen ([facility]) No MRI evidence of liver lesion 09/25/2022 [...] No neoplastic hypermetabolic lesions 09/11/2022 MRI pelvis ([facility]) Low rectal neoplasm with suspected early invasion of the internal anal sphincter at the upper canal(MRI category T3b, N0). Few nonenlarged 2 to 3 mm mesorectal lymph nodes. No suspicious lymphadenopathy. 09/11/2022 CT chest, abdomen, pelvis ([facility]) Possible low-attenuation lesion right hepatic lobe under [...] to colorectal surgery (Dr. Thalia Troy in [place]) for restaging to include pelvic MRI and [...] ultrasound to rule out DVT. Andree Hollis APRN.ARACELY CC: Dr. Thalia Troy ([facility] Colorectal Surgery) I spent a total of 30 minutes on the date of the service which included preparing to see the patient, bwvm-hb-lzki patient care, completing clinical documentation, obtaining and/or reviewing separately obtained history, performing a medically appropriate examination, counseling and educating the pat ient/family/caregiver, ordering medications, tests, or procedures, independently interpreting results (not separately reported), and communicating results to the patient/family/caregiver. documented in this encounterSalem Regional Medical Center03-31-2023 Miscellaneous Notes* Telephone Encounter - Renata Amin - 01/18/2023 4:14 PM EDT Patient has an OTV appointment on 01/22. Please place lab orders. Renata Amin documented in this encounterSalem Regional Medical Center03-27-2023 Miscellaneous Notes* Telephone Encounter - Denisha Duarte RN - 01/14/2023 12:17 PM EDT Pt notified and verbalizes understanding. 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 However, a flex sigmoidoscopy would be recommended to make sure nothing else serious going on. Best if he could see his [place] colorectal surgeon. If not able to get in to see her the local scrap collector can perform a flex sig. Thanks, B [...] advise? Denisha Duarte RN documented in this encounterSalem Regional Medical Center03-26-2023 NoteEchocardiology Procedure Exam Date/Time Accession # Ordering Echo Transthoracic 01/10/2023 15:02 EDT [id number] Cyndee SANCHEZ CNP Complete CPT code 05729 [id number] Reason for Exam (Echo Transthoracic Complete) I42.8;Cardiomyopathy Report Version: 1 Study ID: [id number] [facility] [address] [place] [address] Adult Echocardiogram Report Name: OSEIMERVAT DAVIS Tim Study Date: 01/10/2023, 2: 20 PM Patient Location: FT CAR [facility] : 1950 (MM/DD/YYYY) Gender: Male Age: 72 [...] Signed by: Santiago Kong MD Transcribed by: [facility] Technologist: [facility]03-21-2023 Note [facility]03-21-2023 History of Present illness Narrative* Hoa Owen, JONAS - 01/08/2023 10:17 AM EDT Oncology Nutrition [...] no significant changes but weight fluctuations noted [place] Body Weight: 79.9kg Estimated kilocalorie needs: 9582-1088 kilocalories determined by 25-30 kcal/kg Estimated protein needs: 80-96 grams determined by 1.0-1.2 g/kg [place] weight Estimated fluid needs: ~9520-4559 milliliters based on 1 mL per kcal [...] Owen MS, RDN, LD documented in this encounterSalem Regional Medical Center03-21-2023 NoteC[facility]03-21-2023 Nurse Note* Lisseth Chávez - 01/08/2023 8:23 AM EDT Pt states that he had a lot of nausea after his last treatment and felt sick for 2 days after despite using his antiemetics. Lisseth Chávez' documented in this encounterSalem Regional [facility] Center03-21-2023 History of Present illness Narrative* Minerva Anderson MD - 01/08/2023 6:49 AM EDT PATIENT NAME: Mrevat Damon DATE: 01/08/2023 PRIMARY CARE PHYSICIAN: Dr. [...] wounds or petechiae. PATHOLOGY: 08/20/2022 Colonoscopic biopsy ([facility]) Adenocarcinoma of colon (mass at anal verge) [...] related to the thorax. 10/01/2022 MRI abdomen ([facility]) No MRI evidence of liver lesion 09/25/2022 [...] No neoplastic hypermetabolic lesions 09/11/2022 MRI pelvis ([facility]) Low rectal neoplasm with suspected early invasion of the internal anal sphincter at the upper canal(MRI category T3b, N0). Few nonenlarged 2 to 3 mm mesorectal lymph nodes. No suspicious lymphadenopathy. 09/11/2022 CT chest, abdomen, pelvis ([facility]) Possible low-attenuation lesion right hepatic lobe under [...] to colorectal surgery (Dr. Thalia Troy in [place]) for restaging to include pelvic MRI and [...] Minerva Anderson MD CC: Dr. Thalia Troy ([facility] Colorectal Surgery) documented in this encounterSalem Regional Medical Center03-10-2023 Miscellaneous Notes* Telephone Encounter - Lucy [...] protocol. Lucy Goetz RN documented in this encounterSalem Regional Medical Center03-07-2023 [facility]-2023 NoteC[facility]03-02-2023 NoteC[facility]03-02-2023 History of Present illness Narrative* Denisha Duarte RN - 12/20/2022 2:55 PM EST Wire Border Assembler Pre Chemo Patient identified by name and date of . YES Confirmed date and time for chemotherapy ? YES Other appointments (labs, imaging) discussed? 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 Denisha Duarte RN documented in this encounterSalem Regional Medical Center03-02-2023 NoteHNO ID: [id number] Author: Hang Rhodes RN Service: ? Author Type: Registered Nurse Type: Nursing Progress Note Filed: 12/20/2022 11:22 AM Note Text: D/c instructions provided along with anesthesia and MP care paperwork.[facility] [id number] NoteHNO ID: [id number] Author: Mark Valladares MD Service: Interventional Radiology Author Type: Physician Type: Procedures Filed: 12/20/2022 10:32 AM Note Text: RADIOLOGY BRIEF PROCEDURE NOTE Procedure Date: December 20, 2022 Incision/Procedure Start Time: 10:04 AM Incision Close/Procedure End Time: 10:28 AM SURGEON(S)/PROCEDURALIST(S) AND SETTER COLD ROLLING MACHINE(S): Mark Valladares MD PROCEDURE: SL Port Placement PRE-PROCEDURE DIAGNOSIS: Rectal Cancer POST-PROCEDURE DIAGNOSIS: Same ESTIMATED BLOOD LOSS: 0 ml SPECIMENS: None COMPLICATIONS: None FINDINGS: Placement of RIJ SL Port with catheter tip at superior cavoatrial junction. PLAN: Port is ready for use. SIGNATURE: Mark Valladares MD PATIENT NAME: Mervat Damon DATE: December 20, 2022 TIME: 10:31 AM PAGER/CONTACT #:[facility] [id number] Miscellaneous Notes* Telephone Encounter - Rashmi Lerner - 12/19/2022 1:28 PM EST Patient has been scheduled. Rashmi Lerner * Telephone Encounter - Rashmi Lerner - 12/17/2022 4:02 PM EST Call placed to [facility] for port placement. Left message on [employer]. Rashmi Lerner documented in this encounterSalem Regional Medical Center03-01-2023 Miscellaneous Notes* Telephone Encounter - Milton Ward RN - 12/19/2022 10:16 AM EST You are scheduled for a Mediport placement, On 12/20/2022. You are to arrive at 0900 am and Report [facility]: [facility]: Enter through [facility] entrance. Proceed to [...] if they are not done at a [facility] facility. . Vp & General Counsel/Transportation: How will you be arriving for your procedure? Private car. You will need a responsible adult to accompany you to and from the procedure. 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 Call for any questions [phone] documented in this encounterSalem Regional Medical Center02-28-2023 Miscellaneous Notes* Telephone Encounter - Orin Ríos - 12/18/2022 8:36 AM EST Patient coming in on Saturday12/25/22 for follow up treatment. Please add lab orders. Thanks. Orin Ríos MA documented in this encounterSalem Regional Medical Center02-27-2023 NoteC[facility]02-27-2023 History of Present illness Narrative* Minerva Anderson MD - 12/17/2022 8:37 AM EST PATIENT NAME: Mervat Damon DATE: 12/17/2022 PRIMARY CARE PHYSICIAN: Dr. Lorenzo Oslon OTHER PHYSICIANS: Dr. Mervat Slaughter, Dr. Thalia [...] wounds or petechiae. PATHOLOGY: 08/20/2022 Colonoscopic biopsy ([facility]) Adenocarcinoma of colon (mass at anal verge) [...] related to the thorax. 10/01/2022 MRI abdomen ([facility]) No MRI evidence of liver lesion 09/25/2022 [...] No neoplastic hypermetabolic lesions 09/11/2022 MRI pelvis ([facility]) Low rectal neoplasm with suspected early invasion of the internal anal sphincter at the upper canal(MRI category T3b, N0). Few nonenlarged 2 to 3 mm mesorectal lymph nodes. No suspicious lymphadenopathy. 09/11/2022 CT chest, abdomen, pelvis ([facility]) Possible low-attenuation lesion right hepatic lobe under [...] to colorectal surgery (Dr. Thalia Troy in [place]) for restaging to include pelvic MRI and [...] Minerva Anderson MD CC: Dr. Thalia Troy ([facility] Colorectal Surgery) documented in this encounterSalem Regional Medical Center02-20-2023 NoteC[facility]02-20-2023 NoteC[facility]02-20-2023 NoteC[facility]01-31-2023 Miscellaneous Notes* Telephone Encounter - Katerina [...] kidneys . RACIEL Siddiqui documented in this encounterSalem Regional Medical Center01-30-2023 History of Present illness Narrative* G Saeed Vásquez MD - 11/19/2022 2:38 PM EST Radiation Oncology - On Treatment Review (OTR) Note PATIENT NAME: Mervat Damon PATIENT DIAGNOSIS: Adenocarcinoma of the lower rectum MRI staged [id number] COURSE: definitive and concurrent chemotherapy Current dose: [...] weeks. Dania Vásquez MD documented in this encounterSalem Regional Medical Center01-30-2023 History of Present illness Narrative* Minerva [...] wounds or petechiae. PATHOLOGY: 08/20/2022 Colonoscopic biopsy ([facility]) Adenocarcinoma of colon (mass at anal verge) Mismatch repair gene -normal expression RADIOLOGY/OTHER STUDIES: 10/01/2022 MRI abdomen ([facility]) No MRI evidence of liver lesion 09/25/2022 [...] No neoplastic hypermetabolic lesions 09/11/2022 MRI pelvis ([facility]) Low rectal neoplasm with suspected early invasion of the internal anal sphincter at the upper canal(MRI category T3b, N0). Few nonenlarged 2 to 3 mm mesorectal lymph nodes. No suspicious lymphadenopathy. 09/11/2022 CT chest, abdomen, pelvis ([facility]) Possible low-attenuation lesion right hepatic lobe under [...] to colorectal surgery (Dr. Thalia Troy in [place]) to discuss surgical options. 2. Rheumatoid arthritis [...] Minerva Anderson MD CC: Dr. Thalia Troy ([facility] Colorectal Surgery) documented in this encounterSalem Regional Medical Center01-30-2023 History of Present illness Narrative* G Saeed Vásquez MD - 11/19/2022 12:00 AM EST [facility] Radiation Oncology Department RADIATION ONCOLOGY - COMPLETION NOTE PATIENT: MERVAT DAMON: 1950 DATES OF TREATMENT: 10/08/2022- 11/19/2022 DIAGNOSIS: Adenocarcinoma of the lower rectum MRI staged [id number] AREA TREATED: rectum DELIVERED DOSE: Area: pelvis [...] cc: Dr. Lorenzo Anderson documented in this encounterSalem Regional Medical Center01-26-2023 History of Present illness Narrative* Dania Vásquez MD - 11/15/2022 8:34 AM EST Boost films reviewed. documented in this encounterSalem Regional Medical Center01-23-2023 History of Present illness Narrative* Dania Vásquez MD - 11/12/2022 2:01 PM EST Radiation Oncology - On Treatment Review (OTR) Note PATIENT NAME: Mervat Damon PATIENT DIAGNOSIS: Adenocarcinoma of the lower rectum MRI staged [id number] COURSE: definitive and concurrent chemotherapy Current dose: [...] outlined. Dania Vásquez MD documented in this encounterSalem Regional Medical Center01-19-2023 Nurse Note* Re Alvarez LPN - [...] assist. Re Alvarez LPN documented in this encounterSalem Regional Medical Center01-18-2023 Miscellaneous Notes* Telephone Encounter - Re Alvarez LPN - 11/07/2022 2:13 PM EST Standing weekly cbc order pending your approval. Please indicate how often you want CBC drawn. Re Alvarez LPN documented in this encounterSalem Regional Medical Center01-18-2023 Miscellaneous Notes* Telephone Encounter - Andree [...] He would like any prescriptions sent to [facility] pharmacy. Re Alvarez LPN documented in this encounterSalem Regional Medical Center01-16-2023 History of Present illness Narrative* G Saeed Vásquez MD - 11/05/2022 10:04 AM EST Radiation Oncology - On Treatment Review (OTR) Note PATIENT NAME: Mervat Damon PATIENT DIAGNOSIS: Adenocarcinoma of the lower rectum MRI staged [id number] COURSE: definitive and concurrent chemotherapy Current dose: [...] outlined. Dania Vásquez MD documented in this encounterSalem Regional Medical Center01-09-2023 History of Present illness Narrative* Andree Hollis APRN.INSEAM LEVELER - 10/29/2022 3:32 PM EST PATIENT NAME: [...] wounds or petechiae. PATHOLOGY: 08/20/2022 Colonoscopic biopsy ([facility]) Adenocarcinoma of colon (mass at anal verge) Mismatch repair gene -normal expression RADIOLOGY/OTHER STUDIES: 10/01/2022 MRI abdomen ([facility]) No MRI evidence of liver lesion 09/25/2022 [...] No neoplastic hypermetabolic lesions 09/11/2022 MRI pelvis ([facility]) Low rectal neoplasm with suspected early invasion of the internal anal sphincter at the upper canal(MRI category T3b, N0). Few nonenlarged 2 to 3 mm mesorectal lymph nodes. No suspicious lymphadenopathy. 09/11/2022 CT chest, abdomen, pelvis ([facility]) Possible low-attenuation lesion right hepatic lobe under [...] Andree Hollis APRN.CNP CC: Dr. Thalia Troy ([facility] Colorectal Surgery) I spent a total of 30 minutes on the date of the service which included preparing to see the patient, [id number] patient care, completing clinical documentation, obtaining and/or reviewing separately obtained history, performing a medically appropriate examination, counseling and educating the pat ient/family/caregiver, ordering medications, tests, or procedures, independently interpreting results (not separately reported), and communicating results to the patient/family/caregiver. documented in this encounterSalem Regional Medical Center01-09-2023 History of Present illness Narrative* Dennis Cheung MD - 10/29/2022 2:00 PM EST Radiation Oncology - On Treatment Review (OTR) Note PATIENT NAME: Mervat Damon PATIENT DIAGNOSIS: Adenocarcinoma of the lower rectum MRI staged [id number] COURSE: definitive and concurrent chemotherapy Current dose: [...] planned. Dennis Cheung MD documented in [place] encounterLer[place] [address]-[place]2023 Hospital Discharge instructions Patient Education 10/24/2022 13:18:32 [...] Follow these instructions at home: Medicines Take sysf-xfm-[id number] and prescription medicines only as told by [...] 10/04/2001 Document Revised: 09/19/2018 Document Reviewed: 10/23/2017 TV Volume Wizard App Patient Education 2020 [employer] Follow Up Care 09/28/2021 14:33:01 With:VIVI ESCOBAR, ASHLEY Perez, URL Address: [address] [facility] [place] [address] When:3 months [facility] 01-03-2023 History of Present illness Narrative* Oliva Brewer RPh - 10/23/2022 2:31 PM EST Opened in error. documented in this encounterSalem Regional Medical Center01-03-2023 History of Present illness Narrative* Dania Vásquez MD - 10/23/2022 8:03 AM EST Radiation Oncology - On Treatment Review (OTR) Note PATIENT NAME: Mervat Damon PATIENT DIAGNOSIS: Adenocarcinoma of the lower rectum MRI staged [id number] COURSE: definitive and concurrent chemotherapy Current dose: 1620 cGy in 9 fx Planned dose: 5040 cGy in 28 fx SUBJECTIVE: Occasional feeling hemorrhoids protruding, better after sitz bath. Rectal pain 2-3 out of 10 on, staying active. No significant bleeding. PHYSICAL EXAM: 01/03/23 0811 BP: 110/69 Pulse: 78 Resp: 16 [...] outlined. Dania Vásquez MD documented in this encounterSalem Regional Medical Center12-30-2022 History of Present illness Narrative* Hoa Owen [...] Owen MS, RDN, LD documented in this encounterSalem Regional Medical Center12-27-2022 History of Present illness Narrative* G Saeed Vásuqez MD - 10/16/2022 1:16 PM EST Radiation Oncology - On Treatment Review (OTR) Note PATIENT NAME: Mervat Damon PATIENT DIAGNOSIS: Adenocarcinoma of the lower rectum MRI staged [id number] COURSE: definitive and concurrent chemotherapy Current dose: [...] outlined. Dania Vásquez MD documented in this encounterSalem Regional Medical Center12-22-2022 History of Present illness Narrative* Andree Hollis APRN.INSEAM LEVELER - 10/11/2022 2:55 PM EST PATIENT NAME: [...] wounds or petechiae. PATHOLOGY: 08/20/2022 Colonoscopic biopsy ([facility]) Adenocarcinoma of colon (mass at anal verge) Mismatch repair gene -normal expression RADIOLOGY/OTHER STUDIES: 10/01/2022 MRI abdomen ([facility]) No MRI evidence of liver lesion 09/25/2022 [...] No neoplastic hypermetabolic lesions 09/11/2022 MRI pelvis ([facility]) Low rectal neoplasm with suspected early invasion of the internal anal sphincter at the upper canal(MRI category T3b, N0). Few nonenlarged 2 to 3 mm mesorectal lymph nodes. No suspicious lymphadenopathy. 09/11/2022 CT chest, abdomen, pelvis ([facility]) Possible low-attenuation lesion right hepatic lobe under [...] Andree Hollis APRN.CNP CC: Dr. Thalia Troy ([facility] Colorectal Surgery) I spent a total of 30 minutes on the date of the service which included preparing to see the patient, edvm-mi-[id number] patient care, completing clinical documentation, obtaining and/or reviewing separately obtained history, performing a medically appropriate examination, counseling and educating the pat ient/family/caregiver, ordering medications, tests, or procedures, independently interpreting results (not separately reported), and communicating results to the patient/family/caregiver. documented in this encounterSalem Regional Medical Center12-22-2022 Miscellaneous Notes* Telephone Encounter - Denisha [...] comply. 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 Staffing BARREL ASSEMBLY INSPECTOR: Aparna Burgos APRN.BARREL ASSEMBLY INSPECTOR Performed by: BARREL ASSEMBLY INSPECTOR Indications and Patient Condition Indications for airway management: anesthesia Preoxygenated: yes anesthesia circuit Patient position: sniffing Method: asleep Difficult Mask: No Final Airway Details Final airway type: supraglottic airway Number of attempts at approach: 1 Final Supraglottic Airway: IGEL Size 5 Seal Adequate: yes Airway not difficult SIGNATURE: Aparna Burgos APRN.BARREL ASSEMBLY INSPECTOR PATIENT NAME: Mervat Damon DATE: October 10, 2022 TIME: 1:32 PM CSN: [id number] [facility] Patient Name: Mervat Damon Procedure Date: 10/10/2022 12:50 PM Date of : 1950 Admit Type: Outpatient Age: 72 Room: [facility] 2 Gender: Male Attending MD: Hang Maier [...] Procedure Start: 1:29:22 PM Procedure End: 1:58:11 [facility]12-20-2022 Miscellaneous Notes* Telephone Encounter - Vito Del Castillo - 10/09/2022 11:56 AM EST Spoke with the patient confirmed noon arrival time for 1 pm appointment at [facility] Vito Del Castillo documented in this encounterSalem Regional Medical Center12-19-2022 History and physical note * Hang Maier MD - 10/08/2022 2:46 PM EST VIRTUAL VISIT PROGRESS NOTE This is a virtual visit using Thinkature video visit. It required patient-provider interaction for themedical decision making as documented below. Mervat Damon is a 72 year old male seen for evaluation of mediastinal adenopathy, referred by. Minerva Anderson. My findings and recommendations will [...] which included preparing to see the patient, fddi-ge-sbor patient care, completing clinical documentation, obtaining and/or reviewing separately obtained history, performing a medically appropriate examination, counseling and educating the pat ient/family/caregiver, ordering medications, tests, or procedures, communicating with other HCPs (not separately reported), independently interpreting results (not separately reported), communicatingresults to the patient/family/caregiver, and care coordination (not separately reported) Hang Maier MD October 08, 2022 3:54 PM documented in this encounterSalem Regional Medical Center12-19-2022 History of Present illness Narrative* G Saeed Vásquez MD - 10/08/2022 11:56 AM EST Radiation Oncology - On Treatment Review (OTR) Note PATIENT NAME: Mervat Damon PATIENT DIAGNOSIS: Adenocarcinoma of the lower rectum MRI staged [id number] COURSE: definitive and concurrent chemotherapy Current dose: [...] prescribed. Dania Vásquez MD documented in this encounterSalem Regional Medical Center12-19-2022 Nurse Note* Orin Ríos - 10/08/2022 11:23 AM EST EKG performed as ordered. Electronically sent to [facility] main. Placed paper copy in scan folder. Orin Ríos MA documented in this encounterSalem Regional Medical Center12-16-2022 NoteHNO ID: [id number] Author: Collette Cespedes Service: ? Author Type: ? Type: Progress Notes Filed: 2022 10:54 AM Note Text: Patient called reviewed: Please schedule patient for the following: Pre-Procedure visit required: Yes-10/08 Physician Performing Bronchoscopy: Dr. Oconnor Needs Labs: No Needs EKG: Yes-10/08- [facility]12-16-2022 Miscellaneous Notes* Telephone Encounter - Nasrin [...] to hold off on treatment any longer. ThanksMinerva ----- Message ----- From: Hang Maier MD Sent: 2022 9:13 AM EST To: Collette Cespedes, Minerva Anderson MD, # Subject: RE: Possible New Pt Sure thing! We have an open slot next Saturday we'll try to get him in for that. He'll need an EKG and pre-bronch COVID which I assume he could get done at [facility] for convenience. [facility]. [facility]con[facility] [...] you! Denisha Duarte RN documented in this encounterSalem Regional Medical Center12-16-2022 NoteHNO ID: [id number] Author: Hang Maier MD Service: ? Author [...] Reviewed by: CHUCHO Maier MD 2022 9:09 [employer]12-16-2022 History of Present illness Narrative* Collette Cespedes [...] MD 2022 9:09 AM documented in this encounterSalem Regional Medical Center12-16-2022 Miscellaneous Notes* Telephone Encounter - Denisha Duarte RN - 2022 9:27 AM EST Pt calls to ask if his Xeloda is ready for burr picker. States that he has not heard from pharmacy. Informed pt that he can burr picker his script today. Pharmacy hours reviewed. Apologized for missed notification. Pt verbalizes understanding and will be in today. Denisha Duarte RN documented in this encounterSalem Regional Medical Center12-13-2022 Miscellaneous Notes* Telephone Encounter - Denisha Duarte RN - 10/02/2022 4:28 PM EST Patient started/will start taking Capecitabine on 10/08/22. Denisha Duarte RN documented in this encounterSalem Regional Medical Center12-13-2022 History of Present illness Narrative* Denisha [...] Information handout: Capecitabine, Specialty Pharmacy Information : [facility], and Specialty Pharmacy phone numbers: Yes [...] time spent on encounter: 5 minutes Denisha Sessler, RN documented in this encounterSalem Regional Medical Center12-13-2022 History of Present illness Narrative* Minerva [...] swelling, and atrophy. PATHOLOGY: 08/20/2022 Colonoscopic biopsy ([facility]) Adenocarcinoma of colon (mass at anal verge) Mismatch repair gene -normal expression RADIOLOGY/OTHER STUDIES: 10/01/2022 MRI abdomen ([facility]) No MRI evidence of liver lesion 09/25/2022 [...] No neoplastic hypermetabolic lesions 09/11/2022 MRI pelvis ([facility]) Low rectal neoplasm with suspected early invasion of the internal anal sphincter at the upper canal(MRI category T3b, N0). Few nonenlarged 2 to 3 mm mesorectal lymph nodes. No suspicious lymphadenopathy. 09/11/2022 CT chest, abdomen, pelvis ([facility]) Possible low-attenuation lesion right hepatic lobe under [...] Minerva Anderson MD CC: Dr. Thalia Troy ([facility] Colorectal Surgery) documented in this encounterSalem Regional Medical Center12-12-2022 Miscellaneous Notes* Telephone Encounter - Denisha Duarte RN - 10/01/2022 5:19 PM EST Pt will be starting chemo/xrt on 10/08. Scripts for antiemetics pended. Denisha Duarte RN documented in this encounterSalem Regional Medical Center12-09-2022 Miscellaneous Notes* Telephone Encounter - Re [...] Olson. Re Alvarez LPN documented in this encounterSalem Regional Medical Center12-07-2022 Miscellaneous Notes* Telephone Encounter - DAI [...] as appropriate. DARYA Carrington documented in this encounterSalem Regional Medical Center12-07-2022 Miscellaneous Notes* Telephone Encounter - Re Alvarez LPN - 09/26/2022 9:11 AM EST I notified Michael of his rescheduled new start for 10/08/22 at 12:45. He states he has a MRI 10/01/22 and I reminded him of his follow up with Dr. Anderson 10/02/22. He denies questions at this time. Re Alvarez LPN documented in this encounterSalem Regional Medical Center12-06-2022 Miscellaneous Notes* Telephone Encounter - Denisha [...] Dr Anderson. Newly diagnosed rectal cancer. Per Dr's note on 09/17, the plan is neoadjuvant Xeloda/XRT followed by [facility]. Will be starting XRT on Saturday, 10/01. Xeloda script still needed. Mata: Could you send a script to our pharmacy since Dr Anderson is out of the office the rest of the week? Denisha Duarte RN documented in this encounterSalem Regional Medical Center12-06-2022 History of Present illness Narrative* Hoa Owen RD - 09/25/2022 1:51 PM EST Oncology Nutrition [...] (249 lb 12.8 oz). Resting Metabolic Rate: 1 Weight Change: no changes reported, weight stable per patient [place] Body Weight: 79.9kg Estimated kilocalorie needs: 5567-7052 kilocalories determined by 25-30 kcal/kg Estimated protein needs: 80-96 grams determined by 1.0-1.2 g/kg [place] weight Estimated fluid needs: ~6020-7455 milliliters based on 1 mL per kcal [...] Owen MS, RDN, LD documented in this encounter[facility]22 Miscellaneous Notes* Telephone Encounter - Lucina [...] see him back after the PET. Thanks, RACIEL * Telephone Encounter - Lucina Becerra Sec - 09/20/2022 12:58 PM EST Sim is scheduled for 09-24-22 Pet scan is scheduled for 09-25-22 MRI at [facility] not until 10-11-22. Just want to confirm that you want to see the patient back the week of 10-01. Thank you for your help. documented in this encounterSalem [facility] Center12-05-2022 History of Present illness Narrative* G Saeed Vásquez MD - 09/24/2022 12:00 AM EST MERVAT DAMON [id number] 09/24/2022 [facility] Department of Radiation Oncology Treatment Planning [...] Vásquez M.D. 0:18 AM documented in this encounterSalem [facility] Center12-01-2022 Nurse Note* Sonam Horowitz RN - 09/20/2022 8:53 AM EST Radiation Therapy - Patient Education Note PATIENT NAME: Mervat Damon PATIENT September 20, 2022 [facility] FACILITY/LOCATION: [facility] READINESS TO LEARN Cognitive Ability: Alert and [...] by: Sonam Horowitz RN documented in this encounterSalem [facility] Center12-01-2022 History of Present illness Narrative* Dania Vásquez MD - 09/20/2022 7:46 AM EST Radiation Oncology - New Patient/Consult Note PATIENT NAME: Mervat Damon PATIENT REQUESTING PROVIDER: .Dr. Anderson DIAGNOSIS: Rectal cancer ,adenocarcinoma of the lower rectum MRI staged [id number] HPI: 71 year old male who presents [...] 30% circumferential involvement. Patient was seen by [facility] colorectal surgery, Dr. Troy. He underwent CT [...] ,adenocarcinoma of the lower rectum MRI staged [id number] Patient is still undergoing staging. He has [...] Signed by: Dania Vásquez MD cc: Lorenzo Asim Olson [address] [place] [address] [address] [place] [address] Minerva Anderson ([facility]) [address] [place] [address] [place] [id number] documented in this encounterSalem [facility] Center11-29-2022 Miscellaneous Notes* Telephone Encounter - Lucy Hampton Sec - 09/18/2022 12:[address] Cortes from [facility] called regarding patient please call at your convience thanks [phone] documented in this encounterSalem [facility] Center11-28-2022 History of Present illness Narrative* Minerva [...] confirmed adenocarcinoma. The patient was referred to [facility] colorectal surgery (Dr. Troy) for further management. 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 MEDICATIONS: Current Outpatient Medications Medication Sig ELIQUIS [...] swelling, and atrophy. PATHOLOGY: 08/20/2022 Colonoscopic biopsy ([facility]) Adenocarcinoma of colon (mass at anal verge) Mismatch repair gene -normal expression RADIOLOGY/OTHER STUDIES: 09/11/2022 MRI pelvis ([facility]) Low rectal neoplasm with suspected early invasion of the internal anal sphincter at the upper canal(MRI category T3b, N0). Few nonenlarged 2 to 3 mm mesorectal lymph nodes. No suspicious lymphadenopathy. 09/11/2022 CT chest, abdomen, pelvis ([facility]) Possible low-attenuation lesion right hepatic lobe under [...] Minerva Anderson MD CC: Dr. Mervat Slaughter ([facility] Surgery); Dr. Thalia Troy ([facility] Colorectal Surgery) documented in this encounterSalem [facility] Medical Center11-18-2022 Miscellaneous Notes* Telephone Encounter - Toshia [...] and MRI Saturday09/11/22 at 11:30 am at [facility]. PSS: Please call and schedule pt for follow up with Dr. Anderson. Please give it a couple days between CT and MRI so we have reports back from [place]. Thanks you! Lauren Murrell RN * Telephone [...] adenocarcinoma of rectum at [facility], by Dr Thalia Troy. Pt has [...] you, Minal Corey RN documented in this encounterSalem [facility] Medical Center11-16-2022 NoteSubjective Patient ID: Mervat Damon is [...] Referral Reason: Specialty Services Required Referral Location: [facility] Requested Specialty: Oncology Number of Visits Requested: 1 Will get CEA today and will have MRI and CT scans soon. Once staging is complete we will discuss plan. No results found for this or any previous visit (from the past 36 hour(s)). No follow-ups on file.[facility]11-02-2022 Note Attestation signed by Thalia Troy [...] and internal hemorrhoids. He was evaluated at [facility] on 08/20/22 via flexible sigmoidoscopy demonstrating a [...] 36 hour(s)). No follow-ups on file.[facility]10-31-2022 Evaluation + Plan noteExtracted from: Title:Post-anesthesia - General Author:Jose Sevilla DO Date:08/20/22 Plan Transfer/ Discharge: Condition stable. Extracted from: Title:Pre-anesthesia - Endoscopy Author:Jose Birmingham Jr., DO Date:08/20/22 Plan [place] [employer] Anesthesiologists (ASA) physical status classification: Class III. Anesthetic Preoperative Plan Anesthesia: General. . Anesthetic plan, risks, benefits, and alternatives discussed with the patient and/or family. Patient verbalized understanding. Future Appointments Appointment Date:09/27/2022 01:00:00 PM Scheduled Provider:ASHLEY TRINIDAD PA-C Location:[facility] [place] Appointment Type:URO Office Visit Appointment Date:10/03/2022 01:15:00 PM Scheduled Provider:Santiago Kong MD Location:FT.Cardiology Clinic Appointment Type:Cardiology Follow Up (FT) Future Scheduled Tests Laboratory* PSA Total 09/28/21 Radiology* XR Abdomen 1 View 09/20/22 [facility]10-25-2022 Hospital Discharge instructions Follow Up Care 08/14/2022 09:27:21 With:Mervat SLAUGHTER Address: [facility] [address]ian [address], [address] [address]- Business (1) When:3 to 5 days [facility]08-11-2022 Hospital Discharge instructions Patient Education 05/31/2022 13:03:46 [...] frozen fruits, and frozen vegetables. Avoid buying ppibp-ev-wwd foods, such as pre-cut fruits and vegetables and pre-made salads. If possible, shop around to discover where you can find the best prices. Consider other retailers such as [employer] stores, larger [employer] stores, local fruit and vegetable Help/Systems, and [employer] markets. Do not shop when you are [...] 06/10/2015 Document Revised: 10/08/2018 Document Reviewed: 10/08/2018 [employer] App Patient Education 2020 [employer] 05/31/2022 13:03:45 BMI for Adults BMI for [...] height. This can be done either in French (U.S[place] or metric measurements. Note that charts are available to help you find your BMI quickly and easily without having to do these calculations yourself. To calculate your BMI in French (U.S.) measurements, your health care provider will: [...] medical problems. BMI can be measured using French measurements or metric measurements. To interpret your [...] 06/18/2005 Document Revised: 09/19/2018 Document Reviewed: 08/20/2018 [employer] App Patient Education 2020 [employer] 05/31/2022 13:03:43 Dizziness Dizziness Dizziness is [...] balance is fine. 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 Take dtty-nuz-libsxsl and prescription medicines only as told by [...] 04/02/2002 Document Revised: 10/10/2018 Document Reviewed: 11/09/2017 [employer] App Patient Education 2020 [employer] 05/31/2022 13:03:39 Hypotension Hypotension As your [...] standing up suddenly after eating. Medicines Take disy-ffh-raqabqt and prescription medicines only as told by [...] 10/07/2006 Document Revised: 04/02/2019 Document Reviewed: 04/02/2019 [employer] App Patient Education 2020 [employer] Follow Up Care 05/30/2022 10:32:48 With:VALERIE ROBERTS CNP Address: [address] [facility] [facility] [facility] [address] [address] [place] [address] When:7 to 10 days only if needed [facility] [place] 11-26-2021 Hospital Discharge instructions Follow Up Care 09/15/2021 11:43:54 With:Dilan ARRINGTON, Santiago Medina Address: When:6 months Comments:Call for sooner apt with new/worsening symptoms [facility]06-14-2021 NotePROCEDURE: XR FOOT LT MIN 3 VIEWS [...] by: SHANTEL COPELAND Date: 2021-04-03 13:38[facility]01-25-2020 Evaluation + Plan note Future Appointments Appointment Date:11/09/2022 03:00:00 PM Scheduled Provider: Location:.CARDIO Appointment Type:CV Echo (FT) Appointment Date:11/14/2022 01:45:00 PM Scheduled Provider:Santiago Kong MD [facility]Cardiology Follow Up (FT) Future Scheduled Tests Radiology* XR Abdomen 1 View 09/20/22 * Echo Transthoracic Complete 11/09/22 [facility] evaluation + Plan note Future Appointments Appointment Date:04/03/2022 11:30:00 AM Scheduled Provider: Location:.Cardiology Clinic Appointment Type:Cardiology Follow Up (FT) Appointment Date:06/21/2022 09:00:00 AM Scheduled Provider:Edward Kaufman DO Location:.ONCOLOGY Appointment Type:ONC Office Visit 15 (FT) Appointment Date:09/27/2022 01:00:00 PM Scheduled Provider:ASHLEY TRINIDAD PA-C Location:[facility] Appointment Type:URO Office Visit Future Scheduled Tests Laboratory* PSA Total 09/28/21 Radiology* XR Abdomen 1 View 09/20/22 [facility] Future Appointments Appointment Date:06/21/2022 09:00:00 AM Scheduled Provider:Edward Kaufman DO Location:.ONCOLOGY Appointment Type:ONC Office Visit 15 (FT) Appointment Date:09/27/2022 01:00:00 PM Scheduled Provider:ASHLEY TRINIDAD PA-C Location:[facility] Appointment Type:URO Office Visit Appointment Date:10/03/2022 01:15:00 PM Scheduled Provider:Santiago Kong MD [facility] Type:Cardiology Follow Up (FT) Future Scheduled Tests Laboratory* PSA Total 09/28/21 Radiology* XR Abdomen 1 View 09/20/22 [facility] Future Appointments Appointment Date:08/28/2022 12:00:00 PM Scheduled Provider:Libia Watson CNP Location:[facility] Dig[facility] Appointment Type:BADH Screening Appointment Date:09/27/2022 01:00:00 PM Scheduled Provider:ASHLEY TRINIDAD PA-C Location:[facility] Appointment Type:URO Office Visit Appointment Date:10/03/2022 01:15:00 PM Scheduled Provider:Santiago Kong MD [facility] Type:Cardiology Follow Up (FT) Future Scheduled Tests Laboratory* PSA Total 09/28/21 Radiology* XR Abdomen 1 View 09/20/22 [facility] Future Appointments Appointment Date:08/20/2022 07:30:00 AM Scheduled Provider: Steffi:[facility] Surgical Services Appointment Type:Surgery FT Appointment Date:09/27/2022 01:00:00 PM Scheduled Provider:ASHLEY TRINIDAD PA-C Location:[facility] Appointment Type:URO Office Visit Appointment Date:10/03/2022 01:15:00 PM Scheduled Provider:Santiago Kong MD [facility] Type:Cardiology Follow Up (FT) Future Scheduled Tests Laboratory* PSA Total 09/28/21 Radiology* XR Abdomen 1 View 09/20/22 [facility] General Surgery [place] Evaluation + Plan note Future Appointments Appointment Date:10/17/2022 01:00:00 PM Scheduled Provider:ASHLEY TRINIDAD PA-C Location:[facility] Appointment Type:URO Office Visit Appointment Date:11/14/2022 01:45:00 PM Scheduled Provider:Santiago Kong MD Location:FT.Cardiology Clinic Appointment Type:Cardiology Follow Up (FT) Future Scheduled Tests Radiology* XR Abdomen 1 View 09/20/22 * Echo Transthoracic Complete 10/03/22 [facility] Future Appointments Appointment Date:01/22/2023 03:30:00 PM Scheduled Provider:Santiago Kong MD Location:FT.Cardiology Clinic Appointment Type:Cardiology Follow Up (FT) Future Scheduled Tests Radiology* XR Abdomen 1 View 09/20/22 [facility] Future Appointments Appointment Date:04/29/2023 08:45:00 AM Scheduled Provider:Cyndee SANCHEZ CNP Location:FT.Cardiology Clinic Appointment Type:Cardiology Follow Up (FT) Future Scheduled Tests Radiology* XR Abdomen 1 View 09/20/22 [facility] Future Appointments Appointment Date:05/07/2023 01:30:00 PM Scheduled Provider:Bryon Cruz MD Location:FT.[facility] Appointment Type:Pain Management - New (FT) Future Scheduled Tests Radiology* XR Abdomen 1 View 09/20/22 [facility] Future Appointments Appointment Date:07/05/2023 10:30:00 AM Scheduled Provider: Location:.PHYSICAL [place] Appointment Type:PT Re-Eval 45 (FT) Appointment Date:07/09/2023 07:00:00 AM Scheduled Provider: Location:.PH[place]ICAL [place] Appointment Type:PT 45 (FT) Appointment Date:07/12/2023 07:00:00 AM Scheduled Provider: Location:.PH[place]ICAL [place] Appointment Type:PT 45 (FT) Appointment Date:07/16/2023 07:00:00 AM Scheduled Provider: Location:.PH[place]ICAL [place] Appointment Type:PT 45 (FT) Appointment Date:07/18/2023 03:00:00 PM Scheduled Provider: Location:.PH[place]ICAL [place] Appointment Type:PT Re-Eval 45 (FT) Appointment Date:07/22/2023 06:45:00 AM Scheduled Provider: Location:.[place]ICAL [place] Appointment Type:PT 45 (FT) Appointment Date:07/25/2023 10:00:00 AM Scheduled Provider: Location:.PH[place]ICAL [place] Appointment Type:PT Re-Eval 45 (FT) Future Scheduled Tests Radiology* XR Abdomen 1 View 09/20/22 [facility] + Plan note Future Appointments Appointment Date:11/01/2023 01:45:00 PM Scheduled Provider:Santiago Kong MD Location:.Cardiology Clinic Appointment Type:Cardiology Follow Up (FT) Future Scheduled Tests Radiology* XR Abdomen 1 View 09/20/22 [facility] note* Diagnosis Rectal cancer (HCC)- Primary Malignant neoplasm of rectum Rheumatoid arthritis involving multiple sites, unspecified whether rheumatoid factor present (HCC) documented in this encounter [facility] note* Diagnosis Rectal adenocarcinoma (HCC)- Primary Malignant neoplasm of rectum documented in this encounter [facility] note* Diagnosis Rectal adenocarcinoma (HCC)- Primary Malignant neoplasm of rectum documented in this encounter [facility] note* Diagnosis Rectal adenocarcinoma (HCC)- Primary Malignant neoplasm of rectum documented in this encounter [facility] noteNo assessment information availableScci Hospital Lima Work Phone: Evaluation note* Diagnosis Rectal cancer (HCC)- Primary Malignant neoplasm of rectum Abnormal PET scan of lung Nonspecific abnormal results of pulmonary system function study documented in this encounter [facility] note* Diagnosis Adenopathy- Primary Enlargement of lymph nodes Adenopathy Enlargement of lymph nodes documented in this encounter [facility] note* Diagnosis Adenopathy Enlargement of lymph nodes Adenopathy Enlargement of lymph nodes [facility] Diagnosis Rectal adenocarcinoma (HCC)- Primary Malignant neoplasm of rectum Adenopathy Enlargement of lymph nodes documented in this encounter [facility] note* Diagnosis Adenopathy- Primary Enlargement of lymph nodes Rectal adenocarcinoma (HCC) Malignant neoplasm of rectum Rheumatoid arthritis involving multiple sites, unspecified whether rheumatoid factor present (HCC) Adenopathy Enlargement of lymph nodes documented in this encounter [facility] note* Diagnosis Rectal cancer (HCC)- Primary Malignant neoplasm of rectum Pulmonary embolus with infarction (HCC) Other pulmonary embolism and infarction documented in this encounter [facility] note* Diagnosis Rectal adenocarcinoma (HCC)- Primary Malignant neoplasm of rectum [facility]* Diagnosis Rectal adenocarcinoma (HCC)- Primary Malignant neoplasm of rectum documented in this encounter [facility] note* Diagnosis Rectal adenocarcinoma (HCC) Malignant neoplasm [...] and anus [facility]* Diagnosis Rectal cancer (HCC)- Primary Malignant [...] of rectum [facility]* Diagnosis Rectal cancer (HCC)- Primary Malignant neoplasm of rectum Malignant neoplasm of rectum (HCC) Malignant neoplasm of rectum [facility]* Diagnosis Rectal cancer (HCC)- Primary Malignant [...] of rectum [facility]* Diagnosis Rectal cancer (HCC) Malignant neoplasm of rectum [facility]* Diagnosis Encounter for follow-up surveillance of rectal cancer- Primary Unspecified follow-up examination Malignant neoplasm of rectum (HCC) Malignant neoplasm of rectum [facility]* Diagnosis Neoplasm related pain (acute) (chronic) [facility]* Diagnosis Hypokalemia- Primary Hypopotassemia documented [facility]* Diagnosis Rectal cancer (HCC) Malignant neoplasm of rectum [facility]* Diagnosis Rectal cancer (HCC)- Primary Malignant neoplasm of rectum Neoplasm related pain (acute) (chronic) Rheumatoid arthritis involving multiple sites, unspecified whether rheumatoid factor present (HCC) Acute deep vein thrombosis (DVT) of distal vein of left lower extremity (HCC) documented [facility]* Diagnosis Rectal cancer (HCC)- Primary Malignant neoplasm of rectum documented [facility]* Diagnosis Rectal cancer (HCC) Malignant neoplasm of rectum [facility]* Diagnosis Malignant neoplasm of rectum (HCC)- Primary Malignant neoplasm of rectum [facility]* Diagnosis Encounter for follow-up surveillance of rectal cancer- Primary Unspecified follow-up examination [facility]* Diagnosis Encounter for follow-up surveillance of rectal cancer Unspecified follow-up examination [facility]* Diagnosis Rectal cancer (HCC)- Primary Malignant neoplasm of rectum [facility]* Diagnosis Rectal cancer (HCC)- Primary Malignant neoplasm of rectum [facility]* Diagnosis Encounter for follow-up surveillance of rectal cancer- Primary Unspecified follow-up examination [facility] Diagnosis Malignant neoplasm of rectum (HCC) Malignant neoplasm of rectum documented in this encounter [facility] general Narrative - Reported* Type Description [...] Cataracts Late 2018 Hospitalization History see surg DiscountIF Other Hospital course Narrative No data available for this section [facility] Dis[facility] instructions No data available for this section [facility] No data available for this section [facility] (narrative)* Outpatient Procedure (Routine) - Authorized Specialty Diagnoses / Procedures Referred By Rosanne engle Referred To Contact [facility] Diagnoses Adenopathy Procedures ECG COMPLETE ECG ROUTINE ECG W/LEAST 12 LDS W/I&R Hang Maier MD [address] [place] [address] [address] Referral ID Status Reason Start Date Expiration Date Visits Requested Visits Authorized [id number] Authorized Auto-Generat ed Referral 2 2023 1 1 [facility] for referral (narrative)* Diagnostic Procedure Only (Routine) - Pending Review Specialty Diagnoses / Procedures Referred By Rosanne t Referred To Contact [facility] IMAGING Diagnoses Leg swelling Procedures US DVT LOWER LEFT DUP-SCAN XTR VEINS UNILATERAL/LIMITED STUDY Andree Hollis, GLOBE CHANGER.INSEAM LEVELER [address] [place] [address] [place] [address] Us Imaging Referral ID Status Reason Start Date Expiration Date Visits Requested Visits Authorized [id number] Pending Review Auto-Generat ed Referral 01/22/2023 02/21/2024 1 1 [facility] for referral (narrative)* Outpatient Procedure (Routine) - Pending Review Specialty Diagnoses / Procedures Referred By Contac t Referred To Contact [facility] Diagnoses Encounter for follow-up surveillance of rectal cancer Procedures SIGMOIDOSCOPY SIGMOIDOSCOPY FLX DX W/COLLJ [place] [address] [address] [place] [address] [place] [address] Referral ID Status Reason Start Date Expiration Date Visits Requested Visits Authorized [id number] Pending Review Auto-Generat ed Referral 07/24/2023 07/24/2024 1 1 [facility] for referral (narrative)* Outpatient Procedure (Routine) - Closed Specialty Diagnoses / Procedures Referred By Contac t Referred To Contact [facility] Diagnoses Encounter for follow-up surveillance of rectal cancer Procedures SIGMOIDOSCOPY SIGMOIDOSCOPY FLX DX W/COLLJ [place] BR/[place] [address] [facility] [address] [place] [address] [place] [address] Referral ID Status Reason Start Date Expiration Date V isits Requested Visits Authorized [id number] Closed Auto-Generate d Referral 05/03/2023 05/03/2024 1 1 [facility] for referral (narrative)* Outpatient Procedure (Routine) - Closed Specialty Diagnoses / Procedures Referred By Contac t Referred To Contact [facility] Diagnoses Rectal cancer (HCC) Procedures COLONOSCOPY DIAGNOSTIC COLONOSCOPY FLX DX W/[place] [address] [facility] [address] [place] [address] [place] [address] Referral ID Status Reason Start Date Expiration Date V isits Requested Visits Authorized [id number] Closed Auto-Generate d Referral 02/07/2023 02/08/2024 1 1 [facility] for visit Narrative* Outpatient Procedure (Routine) - Closed Specialty Diagnoses / Procedures Referred By Contac t Referred To Contact [facility] Diagnoses Adenopathy Procedures ECG COMPLETE ECG ROUTINE ECG W/LEAST 12 LDS W/I&[place] [address] [place] [address] [place] [id number] Referral ID Status Reason Start Date Expiration Date V isits Requested Visits Authorized [id number] Closed Auto-Generate d Referral 2022 2023 1 1 [facility] for visit Narrative* Outpatient Procedure (Routine) - Closed Specialty Diagnoses / Procedures Referred By Contac t Referred To Contact [facility] Diagnoses Encounter for follow-up surveillance of rectal cancer Procedures SIGMOIDOSCOPY SIGMOIDOSCOPY FLX DX W/COLLJ SPEC BR/[place] [address] [address] [place] [address] [facility] Disease [address] [address] Referral ID Status Reason Start Date Expiration Date V isits Requested Visits Authorized [id number] Closed Auto-Generate d Referral 05/03/2023 05/03/2024 1 1 [facility] for visit Narrative* Outpatient Procedure (Routine) - Closed Specialty Diagnoses / Procedures Referred By Contac t Referred To Contact [facility] Diagnoses Rectal cancer (HCC) Procedures COLONOSCOPY DIAGNOSTIC COLONOSCOPY FLX DX W/[place] [address] [address] [place] [address] [address] Referral ID Status Reason Start Date Expiration Date V isits Requested Visits Authorized [id number] Closed Auto-Generate d Referral 02/07/2023 02/08/2024 1 1 [facility] Summary Purpose Family History No Family History Records FoundNo Family History Records FoundNo Family History Records FoundNo Family History Records FoundNo Family History Records Found No data available for this section No data available for this section No Family History Records FoundNo Family History Records FoundNo Family History Records FoundNo Family History Records Found Advance Directives Advance Directive Response Recorded Date/ Time Advance Directives No September 6:18pm Advance Directive Response Recorded Date/ Time Advance Directives No September 7:18pm Reason for Referral Reason *FU 07/01 EMG bila t upper and lower extremities Diagnosis 1 Cervical stenosis of spine (M48.02) Referral Organization [facility] Ne urosurgery Referring Provider First Name Valencia Referring Provider Last Name Darin Referring Provider Specialty Nurse Pract juliana Referred Organization [facility] Referred Provider Shantel Langston Referred Address [address] [place] [phone] Referred Provider Specialty Neurology Referral Priority Routine General Notes Rika Shabazz 023 03:33:00 PM >Spoke with Dr. Cruz's office and Dr. Cruz does not them them or do they do them in their office. [facility] Central scheduling schedules them which she transferred me to Central Scheduling and they said that Dr. Langston comes in like twice a month and does them through [facility] but he is scheduled out to July. She said it would be better to send to his office Surekha Lopez 06/18/2023 03:46:05 PM > thank you for the letting me know, I was not aware that is the way they did it, can we update the referrals to go through [facility]? Rika Shabazz 06/19/2023 09:08:47 AM [...] call patient to schedule. Referral was sent [facility] [place] Clinical Notes Office [phone] Reason 05/07/23 @ 1:30pm evaluate and treat Diagnosis 1 Cervical radiculopat hy (M54.12) Referral Organization [facility] urosurgery Referring Provider First Name Valencia Referring Provider Last Name Torres Referring Provider Specialty Nurse Pract itioner Referred Organization [facility] Referred Provider Bryon Cruz Referred Address [address] [place] [place],[address] Referred Provider Specialty Pain Medicin e Referral Priority Routine Referral Appointment Date 2023-05-07 General Notes Harika Rika 023 10:03:13 AM >Received today. [facility] Pain Medicine 's office request us to fill out form and fax referral to them and they will review the referral and call patient. [facility] fax[facility] 09:24:32 AM >Spoke with Jonah at [facility] Pain Medicine 's office and patient has been scheduled for 05/07/23 @ 1:30pm [facility] 05/08/2023 11:42:50 AM >Spoke with Silvia at [facility] Pain Medicine office and patient was seen. She transferred me to [facility] Medical Records to get office notes [facility] 05/08/2023 11:46:09 AM >Spoke with Elba at [facility] Medical Records and she will fax the notes to us [facility] 05/08/2023 01:19:55 PM >Received consult notes Clinical Notes Office [phone] Reason 05/02/23 @ 2:00pm evaluate and treat - Left hip pain Diagnosis 1 Cervical radiculopat hy (M54.12) Referral Organization [facility] urosurger Referring Provider First Name Valencia Referring Provider Last Name Torres Referring Provider Specialty Nurse Prackadie andrews Referred Organization [facility] Referred Provider Jakob Mora Jr. Referred Address ,[place], [place] Referred Provider Specialty Orthopedic S urgery Referral Priority Routine Referral Appointment Date 2023-05-02 General Notes Rika Shabazz 023 07:35:08 AM >Received today and referral was fax. They will review and call patient to schedule [facility] 04/19/2023 09:50:53 AM >Fax letter for appt update Rika Shabazz 05/01/2023 09:53:54 AM >Spoke with [facility] Orthopedic office and patient has been scheduled for 05/02/23 @ 2 Rika Shabazz 05/03/2023 08:50:48 AM >Reviewed [facility] and patient went to appt but I do not think the office notes are complete yet Rika Shabazz 05/06/2023 07:52:53 AM >Received consult notes from [facility] Clinical Notes Office [phone] Specialty Diagnoses / Procedures Referred By Contac t Referred To Contact CT IMAGING Diagnoses Malignant neoplasm of rectum (HCC) Procedures CT ABDOMEN W IVCON CT ABDOMEN W/[place] [address] [address] [place] [address] Ct Imaging Referral ID Status Reason Start Date Expiration Date Visits Requested Visits Authorized [id number] Pending Review Auto-Generat ed Referral 05/03/2023 06/01/2024 1 1 Specialty Diagnoses / Procedures Referred By Contac t Referred To Contact CT IMAGING Diagnoses Malignant neoplasm of rectum (HCC) Procedures CT CHEST W IVCON DIAGNOSTIC COMPUTED TOMOGRAPHY THORAX W/[place] [address] [address] [place] [address] Ct Imaging Referral ID Status Reason Start Date Expiration Date Visits Requested Visits Authorized [id number] Pending Review Auto-Generat ed Referral 05/03/2023 06/01/2024 1 1 Specialty Diagnoses / Procedures Referred By Contac t Referred To Contact MR IMAGING Diagnoses Malignant neoplasm of rectum (HCC) Procedures MRI RECTUM WO/W IVCON MRI PELVIS W/O & W/[place] [address] [address] [place] [address] Mr Imaging Referral ID Status Reason Start Date Expiration Date Visits Requested Visits Authorized [id number] Pending Review Auto-Generat ed Referral 05/03/2023 06/01/2024 1 1 Specialty Diagnoses / Procedures Referred By Contac t Referred To Contact [facility] Diagnoses Encounter for follow-up surveillance of rectal cancer Procedures SIGMOIDOSCOPY SIGMOIDOSCOPY FLX DX W/COLLJ SPEC BR/[place] [address] [address] [place] [address] [facility] [address] [place] [address] Referral ID Status Reason Start Date Expiration Date Visits Requested Visits Authorized [id number] Pending Review Auto-Generat ed Referral 05/03/2023 05/03/2024 1 1 Reason evaluate and treat Diagnosis 1 Cervical radiculopat hy (M54.12) Referral Organization [facility] urosurgery Referring Provider First Name Valencia Referring Provider Last Name Torres Referring Provider Specialty Nurse Pract itioner Referred Organization [facility] Referred Provider Bryon Cruz Referred Address [address] [place] [phone] Referred Provider Specialty Anesthesiolo gy Referral Priority Routine Reason evaluate and treat - Left hip pain Diagnosis 1 Cervical radiculopat hy (M54.12) Referral Organization [facility] urosurgery Referring Provider First Name Valencia Referring Provider Last Name Torres Referring Provider Specialty Nurse Pract itioner Referred Organization [facility] Referred Provider Jakob Mora Jr. Referred Address ,[place], [place] Referred Provider Specialty Orthopedic S urgery Referral Priority Routine Specialty Diagnoses / Procedures Referred By Rosanne engle Referred To Contact MR IMAGING Diagnoses Malignant neoplasm of rectum (HCC) Procedures MRI RECTUM WO/W IVCON MRI PELVIS W/O & W/[place] [address] [address] [place] [address] Mr Imaging Referral ID Status Reason Start Date Expiration Date Visits Requested Visits Authorized [id number] Authorized Auto-Generat ed Referral 02/07/2023 03/08/2024 1 1 Specialty Diagnoses / Procedures Referred By Rosanne t Referred To Contact [facility] Diagnoses Rectal cancer (HCC) Procedures COLONOSCOPY DIAGNOSTIC COLONOSCOPY FLX DX W/[place] [address] [address] [place] [address] [facility] [address] [place] [address] Referral ID Status Reason Start Date Expiration Date Visits Requested Visits Authorized [id number] Authorized Auto-Generat ed Referral 02/07/2023 02/08/2024 1 1 Specialty Diagnoses / Procedures Referred By Contac t Referred To Contact Colon and Rectal Surgery Diagnoses Rectal cancer (HCC) Procedures CONSULT TO [place] [address] [place] [address] [place] [address] [address] [address] Referral ID Status Reason Start Date Expiration Date Visits Requested Visits Authorized [id number] Ref Not Required PCP Requested Referral 02/04/2023 02/04/2024 1 1 Specialty Diagnoses / Procedures Referred By Contac t Referred To Contact Gastroenterology Diagnoses Rectal cancer (HCC) Rectal bleeding Procedures CONSULT TO GASTROENTEROLOGY OFFICE/OUTPATIENT [facility] 60-74 MINUTES Andree Hollis, GLOBE CHANGER.INSEAM LEVELER [address] [place] [address] Referral ID Status Reason Start Date Expiration Date Visits Requested Visits Authorized [id number] Authorized PCP Requested Referral 01/23/2023 01/23/2024 1 1 Specialty Diagnoses / Procedures Referred By Contac t Referred To Contact CT IMAGING Diagnoses Lung nodules Procedures CT CHEST W IVCON DIAGNOSTIC COMPUTED TOMOGRAPHY THORAX W/CONTRAST Minerva Anderson MD [address] [place] [address] Ct Imaging Referral ID Status Reason Start Date Expiration Date Visits Requested Visits Authorized [id number] Authorized Auto-Generat ed Referral 11/19/2022 12/19/2023 1 1 Specialty Diagnoses / Procedures Referred By Contac t Referred To Contact CT IMAGING Diagnoses Lung nodules Rectal cancer (HCC) Procedures CT ABD/PEL W IVCON CT ABD & PELVIS W/CONTRAST Minerva Anderson MD [address] [place] [address] Ct Imaging Referral ID Status Reason Start Date Expiration Date Visits Requested Visits Authorized [id number] Authorized Auto-Generat ed Referral 11/19/2022 12/19/2023 1 1 Specialty Diagnoses / Procedures Referred By Contac t Referred To Contact RADIATION ONCOLOGY Diagnoses Rectal adenocarcinoma (HCC) Procedures CT SIM PLANNING RADIATION ONCOLOGY THER RAD SIMULAJ-AIDED FIELD SETTING COMPLEX IMRT Dania Vásquez MD [address] [place] [address] [place] [address] [facility] [address] [place] [address] Referral ID Status Reason Start Date Expiration Date Visits Requested Visits Authorized [id number] Pending Review PCP Requested Referral 09/24/2022 12/23/2022 1 1 Specialty Diagnoses / Procedures Referred By Contac t Referred To Contact Radiation Oncology Diagnoses Rectal cancer (HCC) Procedures RAD/ONC CONSULT OFFICE/OUTPATIENT [facility] MDM 60-74 MINUTES Minerva Anderson MD [address] [place] [address] [place] [address] Referral ID Status Reason Start Date Expiration Date Visits Requested Visits Authorized [id number] Authorized PCP Requested Referral 2 09/17/2023 1 1 Specialty Diagnoses / Procedures Referred By Contac t Referred To Contact MR IMAGING Diagnoses Rectal cancer (HCC) Procedures MRI ABDOMEN WO/W IVCON MRI ABDOMEN W/O & W/CONTRAST MATERIAL Minerva Anderson MD [address] [place] [address] [place] [address] Mr Imaging Referral ID Status Reason Start Date Expiration Date Visits Requested Visits Authorized [id number] Pending Review Auto-Generat ed Referral 2 10/17/2023 1 1 Specialty Diagnoses / Procedures Referred By Contac t Referred To Contact MOLECULAR & FUNCTIONAL IMAGING Diagnoses Rectal cancer (HCC) Procedures NM PET/CT SKULL-THIGH INITIAL PET IMAGING CT ATTENUATION SKULL BASE MID-THIGH Minerva Anderson MD [address] [place] [address] [place] [address] Molecular & Functional Imaging [address] [place] [address] Referral ID Status Reason Start Date Expiration Date Visits Requested Visits Authorized [id number] Authorized Auto-Generat ed Referral 2 10/17/2023 1 [...] dose, On Sat01/08/23 at 0900, EXP: 01/15/23 09 Hazardous Chemotherapy Drug: Use appropriate PPE. Protect [...] 8 mg, INTRAVENOUS, ONCE, 1 dose, On Kalina 02/21/23 at 1130 Given 02/21/2023 11:49 AM EDT [...] and content) DATE CREATED AUTHOR 08/09/2021 [facility] DATE CREATED AUTHOR AUTHOR'S ORGANIZ ATION 09/27/2022 [facility] DATE CREATED AUTHOR AUTHOR'S ORGANIZ ATION 10/14/2022 [facility] DATE CREATED AUTHOR AUTHOR'S ORGANIZ ATION 04/19/2023 [facility] DATE CREATED AUTHOR AUTHOR'S ORGANIZ ATION 08/16/2023 [facility] DATE CREATED AUTHOR AUTHOR'S ORGANIZ ATION 10/12/2023 [facility] DATE CREATED AUTHOR AUTHOR'S ORGANIZ ATION 10/25/2023 [facility] DATE CREATED AUTHOR AUTHOR'S ORGANIZ ATION 11/08/2023 [facility] DATE CREATED AUTHOR AUTHOR'S ORGANIZ ATION 11/22/[address] [facility] Team (unrecognized sect ion and content) Team Status: Active Member Role Status Dates Lorenzo Olson , Primary Care Provider Active Team Status: Inactive Member Role Status Dates Lorenzo Olson , Primary Care Provider Active JM Busby Attending Provider Active Shutdown Planner Relationship Specialty Start Date End Date Tomas, Lorenzo Dailey DO PCP - General Family Medicine 04/16/13 Shutdown Planner Relationship Specialty Start Date End Date Tomas, Lorenzo Dailey DO PCP - General Family Medicine 04/16/13 Shutdown Planner Relationship Specialty Start Date End Date Lorenzo Olson DO PCP - General Family Medicine 04/16/13 Shutdown Planner Relationship Specialty Start Date End Date Lorenzo Olson DO PCP - General Family Medicine 04/16/13 Shutdown Planner Relationship Specialty Start Date End Date Lorenzo Olson DO PCP - General Family Medicine 04/16/13 Shutdown Planner Relationship Specialty Start Date End Date Lorenzo Olson DO PCP - General Family Medicine 04/16/13 Shutdown Planner Relationship Specialty Start Date End Date Lorenzo Olson DO PCP - General Family Medicine 04/16/13 Shutdown Planner Relationship Specialty Start Date End Date Lorenzo Olson DO PCP - General Family Medicine 04/16/13 Shutdown Planner Relationship Specialty Start Date End Date Lorenzo Olson DO PCP - General Family Medicine 04/16/13 Shutdown Planner Relationship Specialty Start Date End Date Lorenzo Olson DO PCP - General Family Medicine 04/16/13 Shutdown Planner Relationship Specialty Start Date End Date Tomas Lorenzo DaileyDO PCP - General Family Medicine 04/16/13 Sera Forbes LSW Surveillance Director 09/26/22 Team Status: Inactive Member Role Status Dates Lorenzo Olson DO Primary Care Provider Active Minerva Anderson MD Attending Provider Active Shutdown Planner Relationship Specialty Start Date End Date Lorenzo Olson DO PCP - General Family Medicine 04/16/13 Sera Forbes LSW Surveillance Director 09/26/22 Minerva Anderson MD [address] [facility] [address] [place], [place] [id number] Physician Hematology/Oncology 10/01/22 Dania Vásquez MD [address] [facility] [place] [address] Physician Radiation Oncology 10/01/22 Andree Hollis APRN.INSEAM LEVELER [address] [place] [address] Nurse Practitioner Hematology/Oncology 10/01/22 Denisha Duarte, RN [address] [place] [address] Specialty Wire Border Assembler Hematology/Oncology 10/01/22 Shutdown Planner Relationship Specialty Start Date End Date Lorenzo Olson DO PCP - General Family Medicine 04/16/13 Sera Forbes LSW Surveillance Director 09/26/22 Minerva Anderson MD [address] [address] Physician Hematology/Oncology 10/01/22 Dania Vásquez MD [address] [facility] [place] [address] Physician Radiation Oncology 10/01/22 Andree Hollis, GLOBE CHANGER.INSEAM LEVELER [address] [address] Nurse Practitioner Hematology/Oncology 10/01/22 Denisha Duarte, ALEXUS [address] [place] [address] Specialty Wire Border Assembler Hematology/Oncology 10/01/22 Shutdown Planner Relationship Specialty Start Date End Date Lorenzo Olson DO PCP - General Family Medicine 04/16/13 Sera Forbes LSW Surveillance Director 09/26/22 Minerva Anderson MD [address] [place] [address] Physician Hematology/Oncology 10/01/22 Dania Vásquez MD [address] [place] [address] Physician Radiation Oncology 10/01/22 Andree Hollis, GLOBE CHANGER.INSEAM LEVELER [address] [place] [address] Nurse Practitioner Hematology/Oncology 10/01/22 Denisha Duarte, AELXUS [address] [place] [address] Specialty Wire Border Assembler Hematology/Oncology 10/01/22 Shutdown Planner Relationship Specialty Start Date End Date Lorenzo Olson DO PCP - General Family Medicine 04/16/13 Sera Forbes LSW Surveillance Director 09/26/22 Minerva Anderson MD [address] [address] Physician Hematology/Oncology 10/01/22 Dania Vásquez MD [address] [address] Physician Radiation Oncology 10/01/22 Andree Hollis, GLOBE CHANGER.INSEAM LEVELER [address] [place] [address] Nurse Practitioner Hematology/Oncology 10/01/22 Denisha Duarte, RN [address] [address] Specialty Wire Border Assembler Hematology/Oncology 10/01/22 Shutdown Planner Relationship Specialty Start Date End Date Lorenzo Olson DO PCP - General Family Medicine 04/16/13 Sera Forbes LSW Surveillance Director 09/26/22 Minerva Anderson MD [address] [address] Physician Hematology/Oncology 10/01/22 Dania Vásquez MD [address] [place] [address] Physician Radiation Oncology 10/01/22 Andree Hollis, GLOBE CHANGER.INSEAM LEVELER [address] [address] Nurse Practitioner Hematology/Oncology 10/01/22 Denisha Duarte, RN [address] [address] Specialty Wire Border Assembler Hematology/Oncology 10/01/22 Shutdown Planner Relationship Specialty Start Date End Date Lorenzo Olson DO PCP - General Family Medicine 04/16/13 Sera Forbes LSW Surveillance Director 09/26/22 Minerva Anderson MD [address] [address] Physician Hematology/Oncology 10/01/22 Dania Vásquez MD [address] [place] [address] Physician Radiation Oncology 10/01/22 Andree Hollis, GLOBE CHANGER.[facility] [address] [address] Nurse Practitioner Hematology/Oncology 10/01/22 Denisha Duarte, RN [address] [place] [address] Specialty Wire Border Assembler Hematology/Oncology 10/01/22 Shutdown Planner Relationship Specialty Start Date End Date Lorenzo Olson DO PCP - General Family Medicine 04/16/13 Sera Forbes LSW Surveillance Director 09/26/22 Minerva Anderson MD [address] [address] Physician Hematology/Oncology 10/01/22 Dania Vásquez MD [address] [place] [address] Physician Radiation Oncology 10/01/22 Andree Hollis, GLOBE CHANGER.[facility] [address] [place] [address] Nurse Practitioner Hematology/Oncology 10/01/22 Denisha Duarte, ALEXUS [address] [place] [address] Specialty Wire Border Assembler Hematology/Oncology 10/01/22 Shutdown Planner Relationship Specialty Start Date End Date Lorenzo Olson DO PCP - General Family Medicine 04/16/13 Sera Forbes LSW Surveillance Director 09/26/22 Minerva Anderson MD [address] [address] Physician Hematology/Oncology 10/01/22 Dania Vásquez MD [address] [address] Physician Radiation Oncology 10/01/22 Andree Hollis, GLOBE CHANGER.[facility] [address] [address] Nurse Practitioner Hematology/Oncology 10/01/22 Denisha Duarte, ALEXUS [address] [place] [address] [place] [address] Specialty Wire Border Assembler Hematology/Oncology 10/01/22 Shutdown Planner Relationship Specialty Start Date End Date Lorenzo Olson DO PCP - General Family Medicine 04/16/13 Sera Forbes LSW Surveillance Director 09/26/22 Minerva Anderson MD [address] [facility] [address] Physician Hematology/Oncology 10/01/22 Dania Vásquez MD [address] [place] [address] [place] [address] Physician Radiation Oncology 10/01/22 Andree Hollis, GLOBE CHANGER.[address] [place] [address] Nurse Practitioner Hematology/Oncology 10/01/22 Denisha Duarte, ALEXUS [address] [place] [address] [place] [address] Specialty Wire Border Assembler Hematology/Oncology 10/01/22 Shutdown Planner Relationship Specialty Start Date End Date Lorenzo Olson DO PCP - General Family Medicine 04/16/13 Sera Forbes LSW Surveillance Director 09/26/22 Minerva Anderson MD [address] [place] [address] Physician Hematology/Oncology 10/01/22 Dania Vásquez MD [address] [place] [address] Physician Radiation Oncology 10/01/22 Andree Hollis, GLOBE CHANGER.INSEAM LEVELER [address] [place] [address] Nurse Practitioner Hematology/Oncology 10/01/22 Denisha Duarte, RN [address] [address] Specialty Wire Border Assembler Hematology/Oncology 10/01/22 Shutdown Planner Relationship Specialty Start Date End Date Lorenzo Olson DO PCP - General Family Medicine 04/16/13 Sera Forbes LSW Surveillance Director 09/26/22 Minerva Anderson MD [address] [place] [address] Physician Hematology/Oncology 10/01/22 Dania Vásquez MD [address] [place] [address] Physician Radiation Oncology 10/01/22 Andree Hollis, GLOBE CHANGER.INSEAM LEVELER [address] [place] [address] Nurse Practitioner Hematology/Oncology 10/01/22 Denisha Duarte, RN [address] [place] [address] Specialty Wire Border Assembler Hematology/Oncology 10/01/22 Shutdown Planner Relationship Specialty Start Date End Date Lorenzo Olson DO PCP - General Family Medicine 04/16/13 Sera Forbes LSW Surveillance Director 09/26/22 Minerva Anderson MD [address] [facility] [address] [place], [place] [address] Physician Hematology/Oncology 10/01/22 Dania Vásquez MD [address] [facility] [address] [place], [place] [address] Physician Radiation Oncology 10/01/22 Andree Hollis, GLOBE CHANGER.INSEAM LEVELER [address] [place] [address] Nurse Practitioner Hematology/Oncology 10/01/22 Denisha Duarte, ALEXUS [address] [place] [address] Specialty Wire Border Assembler Hematology/Oncology 10/01/22 Shutdown Planner Relationship Specialty Start Date End Date Lorenzo Olson DO PCP - General Family Medicine 04/16/13 Sera Forbes LSW Surveillance Director 09/26/22 Minerva Anderson MD [address] [facility] [address] Physician Hematology/Oncology 10/01/22 Dania Vásquez MD [address] [place] [address] Physician Radiation Oncology 10/01/22 Andree Hollis, GLOBE CHANGER.INSEAM LEVELER [address] [place] [address] Nurse Practitioner Hematology/Oncology 10/01/22 Denisha Duarte, ALEXUS [address] [address] Specialty Wire Border Assembler Hematology/Oncology 10/01/22 Shutdown Planner Relationship Specialty Start Date End Date Lorenzo Olson DO PCP - General Family Medicine 04/16/13 Sera Forbes LSW Surveillance Director 09/26/22 Minerva Anderson MD [address] [facility] [address] [place], [place] [id number] Physician Hematology/Oncology 10/01/22 Dania Vásquez MD [address] [facility] [address] [place], [place] [id number] Physician Radiation Oncology 10/01/22 Andree Hollis, GLOBE CHANGER.INSEAM LEVELER [address] [place] [address] Nurse Practitioner Hematology/Oncology 10/01/22 Denisha Duarte, ALEXUS [address] [place] [address] Specialty Wire Border Assembler Hematology/Oncology 10/01/22 Shutdown Planner Relationship Specialty Start Date End Date Lorenzo Olson DO PCP - General Family Medicine 04/16/13 Sera Forbes [employer]CHITECT Surveillance Director 09/26/22 Minerva Anderson MD [address] [place] [address] Physician Hematology/Oncology 10/01/22 Dania Vásquez MD [address] [place] [address] Physician Radiation Oncology 10/01/22 Andree Hollis, GLOBE CHANGER.INSEAM LEVELER [address] [place] [address] Nurse Practitioner Hematology/Oncology 10/01/22 Denisha Duarte, ALEXUS [address] [place] [address] Specialty Wire Border Assembler Hematology/Oncology 10/01/22 Shutdown Planner Relationship Specialty Start Date End Date Tomas Lorenzo DaileyDO PCP - General Family Medicine 04/16/13 Sera Forbes, [employer] ARCHITECT Surveillance Director 09/26/22 Minerva Anderson MD [address] [place] [address] Physician Hematology/Oncology 10/01/22 Dania Vásquez MD [address] [place] [address] Physician Radiation Oncology 10/01/22 Andree Hollis, GLOBE CHANGER.INSEAM LEVELER [address] [place] [address] Nurse Practitioner Hematology/Oncology 10/01/22 Denisha Duarte, ALEXUS [address] [place] [address] Specialty Wire Border Assembler Hematology/Oncology 10/01/22 Shutdown Planner Relationship Specialty Start Date End Date Tomas Lorenzo DO Asim PCP - General Family Medicine 04/16/13 Sera Forbes [employer] ARCHITECT Surveillance Director 09/26/22 Minerva Anderson MD [address] [place] [address] Physician Hematology/Oncology 10/01/22 Dania Vásquez MD [address] [place] [address] Physician Radiation Oncology 10/01/22 Andree Hollis, GLOBE CHANGER.INSEAM LEVELER [address] [place] [address] Nurse Practitioner Hematology/Oncology 10/01/22 Denisha Duarte, ALEXUS [address] [place] [address] Specialty Wire Border Assembler Hematology/Oncology 10/01/22 Shutdown Planner Relationship Specialty Start Date End Date Lorenzo Olson DO PCP - General Family Medicine 04/16/13 Sera Forbes, [facility] Surveillance Director 09/26/22 Minerva Anderson MD [address] [place], [place] [id number] Physician Hematology/Oncology 10/01/22 Dania Vásquez MD [address] [place] [address] Physician Radiation Oncology 10/01/22 Andree Hollis, GLOBE CHANGER.INSEAM LEVELER [address] [place] [address] Nurse Practitioner Hematology/Oncology 10/01/22 Denisha Duarte, ALEXUS [address] [place] [address] Specialty Wire Border Assembler Hematology/Oncology 10/01/22 Shutdown Planner Relationship Specialty Start Date End Date Lorenzo Olson DO PCP - General Family Medicine 04/16/13 Sera Forbes, [facility] Surveillance Director 09/26/22 Minerva Anderson MD [address] [place] [address] Physician Hematology/Oncology 10/01/22 Dania Vásquez MD [address] [place] [address] Physician Radiation Oncology 10/01/22 Andree Hollis, GLOBE CHANGER.INSEAM LEVELER [address] [place] [address] Nurse Practitioner Hematology/Oncology 10/01/22 Denisha Duarte, ALEXUS [address] [place] [address] Specialty Wire Border Assembler Hematology/Oncology 10/01/22 Shutdown Planner Relationship Specialty Start Date End Date Lorenzo Olson DO PCP - General Family Medicine 04/16/13 Sera Forbes, [facility] Surveillance Director 09/26/22 Minerva Anderson MD [address] [place] [address] Physician Hematology/Oncology 10/01/22 Dania Vásquez MD [address] [place] [address] Physician Radiation Oncology 10/01/22 Andree Hollis, GLOBE CHANGER.[facility] [address] [place] [address] Nurse Practitioner Hematology/Oncology 10/01/22 Denisha Duarte, ALEXUS [address] [place] [address] Specialty Wire Border Assembler Hematology/Oncology 10/01/22 Shutdown Planner Relationship Specialty Start Date End Date Lorenzo Olson DO PCP - General Family Medicine 04/16/13 Sera Forbes, [facility] Surveillance Director 09/26/22 Minerva Anderson MD [address] [place], [place] [id number] Physician Hematology/Oncology 10/01/22 Dania Vásquez MD [address] [place] [address] Physician Radiation Oncology 10/01/22 Andree Hollis, GLOBE CHANGER.INSEAM LEVELER [address] [place] [address] Nurse Practitioner Hematology/Oncology 10/01/22 Denisha Duarte, RN [address] [place] [address] Specialty Wire Border Assembler Hematology/Oncology 10/01/22 Shutdown Planner Relationship Specialty Start Date End Date Lorenzo Olson DO PCP - General Family Medicine 04/16/13 Sera Forbes LSW Surveillance Director 09/26/22 Minerva Anderson MD [address] [address] [place], [place] [id number] Physician Hematology/Oncology 10/01/22 Dania Vásquez MD [address] [place] [address] Physician Radiation Oncology 10/01/22 Andree Hollis, GLOBE CHANGER.INSEAM LEVELER [address] [place] [address] Nurse Practitioner Hematology/Oncology 10/01/22 Denisha Duarte, RN [address] [place] [address] Specialty Wire Border Assembler Hematology/Oncology 10/01/22 Shutdown Planner Relationship Specialty Start Date End Date Lorenzo Olson DO PCP - General Family Medicine 04/16/13 Sera Forbes LSW Surveillance Director 09/26/22 Minerva Anderson MD [address] [facility] [place] [address] Physician Hematology/Oncology 10/01/22 Dania Vásquez MD [address] [facility] [address] [place], [place] [address] Physician Radiation Oncology 10/01/22 Andree Hollis, GLOBE CHANGER.INSEAM LEVELER [address] [place] [address] Nurse Practitioner Hematology/Oncology 10/01/22 Denisha Duarte, ALEXUS [address] [place] [address] Specialty Wire Border Assembler Hematology/Oncology 10/01/22 Shutdown Planner Relationship Specialty Start Date End Date Lorenzo Olson DO PCP - General Family Medicine 04/16/13 Sera Forbes LSW Surveillance Director 09/26/22 Minerva Anderson MD [address] [place] [address] Physician Hematology/Oncology 10/01/22 Dania Vásquez MD [address] [place] [address] Physician Radiation Oncology 10/01/22 Andree Hollis, GLOBE CHANGER.INSEAM LEVELER [address] [place] [address] Nurse Practitioner Hematology/Oncology 10/01/22 Denisha Duarte, ALEXUS [address] [place] [address] Specialty Wire Border Assembler Hematology/Oncology 10/01/22 Shutdown Planner Relationship Specialty Start Date End Date Lorenzo Olson DO PCP - General Family Medicine 04/16/13 Sera Forbes LSW Surveillance Director 09/26/22 Minerva Anderson MD [address] [place] [address] Physician Hematology/Oncology 10/01/22 Dania Vásquez MD [address] [place] [address] Physician Radiation Oncology 10/01/22 Andree Hollis, GLOBE CHANGER.INSEAM LEVELER [address] [place] [address] Nurse Practitioner Hematology/Oncology 10/01/22 Denisha Duarte, RN [address] [facility] [facility] [place], [place] [address] Specialty Wire Border Assembler Hematology/Oncology 10/01/22 Shutdown Planner Relationship Specialty Start Date End Date Lorenzo Olson DO PCP - General Family Medicine 04/16/13 Sera Forbes LSW Surveillance Director 09/26/22 Minerva Anderson MD [address] [facility] [place] [address] Physician Hematology/Oncology 10/01/22 Dania Vásquez MD [address] [place] [address] Physician Radiation Oncology 10/01/22 Andree Hollis, GLOBE CHANGER.INSEAM LEVELER [address] [place] [address] Nurse Practitioner Hematology/Oncology 10/01/22 Denisha Duarte, RN [address] [place] [address] Specialty Wire Border Assembler Hematology/Oncology 10/01/22 Shutdown Planner Relationship Specialty Start Date End Date Lorenzo Olson DO PCP - General Family Medicine 04/16/13 Sera Forbes LSW Surveillance Director 09/26/22 Minerva Anderson MD [address] [place] [address] Physician Hematology/Oncology 10/01/22 Dania Vásquez MD [address] [place] [address] Physician Radiation Oncology 10/01/22 Andree Hollis, GLOBE CHANGER.[facility] [address] [place] [address] Nurse Practitioner Hematology/Oncology 10/01/22 Denisha Duarte, RN [address] [place] [address] Specialty Wire Border Assembler Hematology/Oncology 10/01/22 Shutdown Planner Relationship Specialty Start Date End Date Lorenzo Olson DO PCP - General Family Medicine 04/16/13 Sera Forbes LSW Surveillance Director 09/26/22 Minerva Anderson MD [address] [place] [address] Physician Hematology/Oncology 10/01/22 Dania Vásquez MD [address] [place] [address] Physician Radiation Oncology 10/01/22 Andree Hollis, GLOBE CHANGER.[facility] [address] [place] [address] Nurse Practitioner Hematology/Oncology 10/01/22 Denisha Duarte, ALEXUS [address] [place] [address] Specialty Wire Border Assembler Hematology/Oncology 10/01/22 Shutdown Planner Relationship Specialty Start Date End Date Lorenzo Olson DO PCP - General Family Medicine 04/16/13 Sera Forbes LSW Surveillance Director 09/26/22 Minerva Anderson MD [address] [place] [address] Physician Hematology/Oncology 10/01/22 Dania Vásquez MD [address] [place] [address] Physician Radiation Oncology 10/01/22 Andree Hollis, GLOBE CHANGER.[address] [place] [address] Nurse Practitioner Hematology/Oncology 10/01/22 Denisha Duarte, ALEXUS [address] [place] [address] Specialty Wire Border Assembler Hematology/Oncology 10/01/22 Shutdown Planner Relationship Specialty Start Date End Date Lorenzo Olson DO PCP - General Family Medicine 04/16/13 Sera Forbes LSW Surveillance Director 09/26/22 Minerva Anderson MD [address] [place] [address] Physician Hematology/Oncology 10/01/22 Dania Vásquez MD [address] [place] [address] [place] [address] Physician Radiation Oncology 10/01/22 Andree Hollis, GLOBE CHANGER.[facility] [address] [place] [address] Nurse Practitioner Hematology/Oncology 10/01/22 Denisha Duarte, ALEXUS [address] [place] [address] Specialty Wire Border Assembler Hematology/Oncology 10/01/22 Shutdown Planner Relationship Specialty Start Date End Date Lorenzo Olson DO PCP - General Family Medicine 04/16/13 Sera Forbes, [employer] ARCHITECT Surveillance Director 09/26/22 Minerva Anderson MD [address] [place], [place] [address] Physician Hematology/Oncology 10/01/22 Dania Vásquez MD [address] [place] [address] Physician Radiation Oncology 10/01/22 Andree Hollis, GLOBE CHANGER.INSEAM LEVELER [address] [place] [address] Nurse Practitioner Hematology/Oncology 10/01/22 Denisha Duarte, RN [address] [place] [address] Specialty Wire Border Assembler Hematology/Oncology 10/01/22 Shutdown Planner Relationship Specialty Start Date End Date Lorenzo Olson DO PCP - General Family Medicine 04/16/13 Sera Forbes [employer] EXCHANGE ARCHITECT Surveillance Director 09/26/22 Minerva Anderson MD [address] [place] [address] Physician Hematology/Oncology 10/01/22 Dania Vásquez MD [address] [place] [address] Physician Radiation Oncology 10/01/22 Andree Hollis, GLOBE CHANGER.INSEAM LEVELER [address] [place] [address] Nurse Practitioner Hematology/Oncology 10/01/22 Denisha Duarte, RN [address] [place] [address] Specialty Wire Border Assembler Hematology/Oncology 10/01/22 Shutdown Planner Relationship Specialty Start Date End Date Lorenzo Olson DO PCP - General Family Medicine 04/16/13 Sera Forbes LSW Surveillance Director 09/26/22 Minerva Anderson MD [address] [facility] [place], [place] [id number] Physician Hematology/Oncology 10/01/22 Dania Vásquez MD [address] [facility] [address] [place], [place] [address] Physician Radiation Oncology 10/01/22 Andree Hollis, GLOBE CHANGER.INSEAM LEVELER [address] [place] [address] Nurse Practitioner Hematology/Oncology 10/01/22 Denisha Duarte, ALEXUS [address] [place] [address] Specialty Wire Border Assembler Hematology/Oncology 10/01/22 Shutdown Planner Relationship Specialty Start Date End Date Lorenzo Olson DO PCP - General Family Medicine 04/16/13 Sera Forbes LSW Surveillance Director 09/26/22 Minerva Anderson MD [address] [place] [address] Physician Hematology/Oncology 10/01/22 Dania Vásquez MD [address] [place] [address] Physician Radiation Oncology 10/01/22 Andree Hollis, GLOBE CHANGER.INSEAM LEVELER [address] [place] [address] Nurse Practitioner Hematology/Oncology 10/01/22 Denisha Duarte, RN [address] [place] [address] Specialty Wire Border Assembler Hematology/Oncology 10/01/22 Shutdown Planner Relationship Specialty Start Date End Date Lorenzo Olson DO PCP - General Family Medicine 04/16/13 Sera Forbes, [employer] EXCH[employer] ARCHITECT Surveillance Director 09/26/22 Minerva Anderson MD [address] [facility] [address] [facility] [address] [place], [place] [id number] Physician Hematology/Oncology 10/01/22 Dania Vásquez MD [address] [facility] [facility] [address] [place], [place] [address] Physician Radiation Oncology 10/01/22 Andree Hollis, GLOBE CHANGER.INSEAM LEVELER [address] [address] Nurse Practitioner Hematology/Oncology 10/01/22 Denisha Duarte, ALEXUS [address] [place] [address] Specialty Wire Border Assembler Hematology/Oncology 10/01/22 Shutdown Planner Relationship Specialty Start Date End Date Lorenzo Olson DO PCP - General Family Medicine 04/16/13 Sera Forbes, [employer]CH[employer] ARCHITECT Surveillance Director 09/26/22 Minerva Anderson MD [address] [facility] [place] [address] Physician Hematology/Oncology 10/01/22 Dania Vásquez MD [address] [facility] [place], [place] [address] Physician Radiation Oncology 10/01/22 Andree Hollis, GLOBE CHANGER.INSEAM LEVELER [address] [address] Nurse Practitioner Hematology/Oncology 10/01/22 Denisha Duarte, ALEXUS [address] [place] [address] Specialty Wire Border Assembler Hematology/Oncology 10/01/22 Shutdown Planner Relationship Specialty Start Date End Date Lorenzo Olson DO PCP - General Family Medicine 04/16/13 Sera Forbes, [employer] EXCH[employer] ARCHITECT Surveillance Director 09/26/22 Minerva Anderson MD [address] [facility] [place] [address] Physician Hematology/Oncology 10/01/22 Dania Vásquez MD [address] [place] [address] Physician Radiation Oncology 10/01/22 Andree Hollis, GLOBE CHANGER.INSEAM LEVELER [address] [place] [address] Nurse Practitioner Hematology/Oncology 10/01/22 Denisha Duarte, ALEXUS [address] [place] [address] Specialty Wire Border Assembler Hematology/Oncology 10/01/22 Shutdown Planner Relationship Specialty Start Date End Date Lorenzo Olson DO PCP - General Family Medicine 04/16/13 Sera Forbes, [facility] Surveillance Director 09/26/22 Minerva Anderson MD [address] [place] [address] Physician Hematology/Oncology 10/01/22 Dania Vásquez MD [address] [place] [address] Physician Radiation Oncology 10/01/22 Andree Hollis, GLOBE CHANGER.INSEAM LEVELER [address] [place] [address] Nurse Practitioner Hematology/Oncology 10/01/22 Denisha Duarte, ALEXUS [address] [facility] [address] [place], [place] [address] Specialty Wire Border Assembler Hematology/Oncology 10/01/22 Chelsie Ríos, RN Specialty Wire Border Assembler Colon and Rectal Surgery 02/18/23 02/19/28 Shutdown Planner Relationship Specialty Start Date End Date Lorenzo Olson DO PCP - General Family Medicine 04/16/13 Sera Forbes LSW Surveillance Director 09/26/22 Minerva Anderson MD [address] [facility] [place] [address] Physician Hematology/Oncology 10/01/22 Dania Vásquez MD [address] [place] [address] Physician Radiation Oncology 10/01/22 Andree Hollis, GLOBE CHANGER.INSEAM LEVELER [address] [place] [address] Nurse Practitioner Hematology/Oncology 10/01/22 Denisha Duarte, ALEXUS [address] [place] [address] Specialty Wire Border Assembler Hematology/Oncology 10/01/22 Chelsie Ríos, RN Specialty Wire Border Assembler Colon and Rectal Surgery 02/18/23 02/19/28 Shutdown Planner Relationship Specialty Start Date End Date Lorenzo Olson DO PCP - General Family Medicine 04/16/13 Sera Forbes [employer] EXCHANGE ARCHITECT Surveillance Director 09/26/22 Minerva Anderson MD [address] [facility] [place] [address] Physician Hematology/Oncology 10/01/22 Dania Vásquez MD [address] [place] [address] Physician Radiation Oncology 10/01/22 Andree Hollis, GLOBE CHANGER.INSEAM LEVELER [address] [place] [address] Nurse Practitioner Hematology/Oncology 10/01/22 Denisha Duarte, ALEXUS [address] [place] [address] Specialty Wire Border Assembler Hematology/Oncology 10/01/22 Chelsie Ríos, RN Specialty Wire Border Assembler Colon and Rectal Surgery 02/18/23 02/19/28 Shutdown Planner Relationship Specialty Start Date End Date Lorenzo Olson DO PCP - General Family Medicine 04/16/13 Sera Forbes LSW Surveillance Director 09/26/22 Minerva Anderson MD [address] [facility] [place] [address] Physician Hematology/Oncology 10/01/22 Dania Vásquez MD [address] [place] [address] Physician Radiation Oncology 10/01/22 Andree Hollis, GLOBE CHANGER.INSEAM LEVELER [address] [place] [address] Nurse Practitioner Hematology/Oncology 10/01/22 Denisha Duarte, RN [address] [place] [address] Specialty Wire Border Assembler Hematology/Oncology 10/01/22 Chelsie íRos, RN Specialty Wire Border Assembler Colon and Rectal Surgery 02/18/23 02/19/28 Shutdown Planner Relationship Specialty Start Date End Date Lorenzo Olson DO PCP - General Family Medicine 04/16/13 Sera Forbes LSW Surveillance Director 09/26/22 Minerva Anderson MD [address] [facility] [place] [address] Physician Hematology/Oncology 10/01/22 Dania Vásquez MD [address] [address] Physician Radiation Oncology 10/01/22 Andree Hollis, GLOBE CHANGER.INSEAM LEVELER [address] [place] [address] Nurse Practitioner Hematology/Oncology 10/01/22 Denisha Duarte, ALEXUS [address] [place] [address] [place] [address] Specialty Wire Border Assembler Hematology/Oncology 10/01/22 Chelsie Ríos, RN Specialty Wire Border Assembler Colon and Rectal Surgery 02/18/23 02/19/28 Shutdown Planner Relationship Specialty Start Date End Date Lorenzo Olson DO PCP - General Family Medicine 04/16/13 Sera Forbes LSW Surveillance Director 09/26/22 Minerva Andreson MD [address] [place] [address] Physician Hematology/Oncology 10/01/22 Dania Vásquez MD [address] [place] [address] Physician Radiation Oncology 10/01/22 Andree Hollis, GLOBE CHANGER.INSEAM LEVELER [address] [address] Nurse Practitioner Hematology/Oncology 10/01/22 Denisha Duarte, RN [address] [place] [address] Specialty Wire Border Assembler Hematology/Oncology 10/01/22 Chelsie Ríos, RN Specialty Wire Border Assembler Colon and Rectal Surgery 02/18/23 02/19/28 Shutdown Planner Relationship Specialty Start Date End Date Lorenzo Olson DO PCP - General Family Medicine 04/16/13 Sera Forbes LSW Surveillance Director 09/26/22 Minerva Anderson MD [address] [facility] [address] [place], [place] [id number] Physician Hematology/Oncology 10/01/22 Dania Vásquez MD [address] [place] [address] Physician Radiation Oncology 10/01/22 Andree Hollis, GLOBE CHANGER.INSEAM LEVELER [address] [address] Nurse Practitioner Hematology/Oncology 10/01/22 Denisha Duarte, ALEXUS [address] [place] [address] [place] [address] Specialty Wire Border Assembler Hematology/Oncology 10/01/22 Chelsie Ríos RN Specialty Wire Border Assembler Colon and Rectal Surgery 02/18/23 02/19/28 Shutdown Planner Relationship Specialty Start Date End Date Lorenzo Olson DO PCP - General Family Medicine 04/16/13 Sera Forbes [facility] Surveillance Director 09/26/22 Minerva Anderson MD [address] [place] [address] Physician Hematology/Oncology 10/01/22 Dania Vásquez MD [address] [facility] [address] [place], [place] [address] Physician Radiation Oncology 10/01/22 Andree Hollis, GLOBE CHANGER.INSEAM LEVELER [address] [address] Nurse Practitioner Hematology/Oncology 10/01/22 Denisha Duarte, ALEUXS [address] [place] [address] Specialty Wire Border Assembler Hematology/Oncology 10/01/22 Chelsie Ríos, RN Specialty Wire Border Assembler Colon and Rectal Surgery 02/18/23 02/19/28 Shutdown Planner Relationship Specialty Start Date End Date Lorenzo Olson DO PCP - General Family Medicine 04/16/13 Sera Forbes LSW Surveillance Director 09/26/22 Minerva Anderson MD [address] [facility] [facility] [address] [place], [place] [id number] Physician Hematology/Oncology 10/01/22 Dania Vásquez MD [address] [address] Physician Radiation Oncology 10/01/22 Andree Hollis, AZAEL.INSEAM LEVELER [address] [place] [address] Nurse Practitioner Hematology/Oncology 10/01/22 Denisha Duarte, ALEXUS [address] [place] [address] Specialty Wire Border Assembler Hematology/Oncology 10/01/22 Chelsie Ríos, RN Specialty Wire Border Assembler Colon and Rectal Surgery 02/18/23 02/19/28 Shutdown Planner Relationship Specialty Start Date End Date Lorenzo Olson DO PCP - General Family Medicine 04/16/13 Sera Forbes LSW Surveillance Director 09/26/22 Minerva Anderson MD [address] [facility] [place] [address] Physician Hematology/Oncology 10/01/22 Dania Vásquez MD [address] [address] Physician Radiation Oncology 10/01/22 Andree Hollis, GLOBE CHANGER.INSEAM LEVELER [address] [place] [address] Nurse Practitioner Hematology/Oncology 10/01/22 Denisha Duarte, ALEXUS [address] [place] [address] [place] [address] Specialty Wire Border Assembler Hematology/Oncology 10/01/22 Chelsie Ríos, RN Specialty Wire Border Assembler Colon and Rectal Surgery 02/18/23 02/19/28 Shutdown Planner Relationship Specialty Start Date End Date Lorenzo Olson DO PCP - General Family Medicine 04/16/13 Sera Forbes LSW Surveillance Director 09/26/22 Minerva Anderson MD [address] [facility] [place] [address] Physician Hematology/Oncology 10/01/22 Dania Vásquez MD [address] [place] [address] [place] [address] Physician Radiation Oncology 10/01/22 Andree Hollis, GLOBE CHANGER.INSEAM LEVELER [address] [facility] [place] [address] Nurse Practitioner Hematology/Oncology 10/01/22 Denisha Duarte, RN [address] [place] [address] Specialty Wire Border Assembler Hematology/Oncology 10/01/22 Chelsie Ríos, RN Specialty Wire Border Assembler Colon and Rectal Surgery 02/18/23 02/19/28 Shutdown Planner Relationship Specialty Start Date End Date Lorenzo Olson DO PCP - General Family Medicine 04/16/13 Sera Forbes LSW Surveillance Director 09/26/22 Minerva Anderson MD [address] [place], [place] [id number] Physician Hematology/Oncology 10/01/22 Dania Vásquez MD [address] [place] [address] Physician Radiation Oncology 10/01/22 Andree Hollis, GLOBE CHANGER.INSEAM LEVELER [address] [place] [place] [address] Nurse Practitioner Hematology/Oncology 10/01/22 Denisha Duarte, ALEXUS [address] [place] [address] [place] [address] Specialty Wire Border Assembler Hematology/Oncology 10/01/22 Chelsie Ríos, RN Specialty Wire Border Assembler Colon and Rectal Surgery 02/18/23 02/19/28 Shutdown Planner Relationship Specialty Start Date End Date Tomas Lorenzosaba Dailey DO PCP - General Family Medicine 04/16/13 Sera Forbes LSW Surveillance Director 09/26/22 Minerva Anderson MD [address] [place] [address] Physician Hematology/Oncology 10/01/22 Dania Vásquez MD [address] [place] [address] Physician Radiation Oncology 10/01/22 Andree Hollis, GLOBE CHANGER.INSEAM LEVELER [address] [place] [address] Nurse Practitioner Hematology/Oncology 10/01/22 Denisha Duarte, ALEXUS [address] [place] [address] Specialty Wire Border Assembler Hematology/Oncology 10/01/22 Chelsie Ríos, RN Specialty Wire Border Assembler Colon and Rectal Surgery 02/18/23 02/19/28 Shutdown Planner Relationship Specialty Start Date End Date Lorenzo Olson DO PCP - General Family Medicine 04/16/13 Sera Forbes LSW Surveillance Director 09/26/22 Minerva Anderson MD [address] [place] [address] Physician Hematology/Oncology 10/01/22 Dania Vásquez MD [address] [place] [place] [address] Physician Radiation Oncology 10/01/22 Andree Hollis, GLOBE CHANGER.INSEAM LEVELER [address] [place], [place] [id number] Nurse Practitioner Hematology/Oncology 10/01/22 Denisha Duarte, ALEXUS [address] [place] [address] Specialty Wire Border Assembler Hematology/Oncology 10/01/22 Chelsie Ríos, ALEXUS Specialty Wire Border Assembler Colon and Rectal Surgery 02/18/23 02/19/28 Shutdown Planner Relationship Specialty Start Date End Date Lorenzo Olson DO PCP - General Family Medicine 04/16/13 Sera Forbes [employer] AR[employer]ECT Surveillance Director 09/26/22 Minerva Anderson MD [address] [place] [address] [place] [address] Physician Hematology/Oncology 10/01/22 Dania Vásquez MD [address] [place] [address] [place] [address] Physician Radiation Oncology 10/01/22 Andree Hollis, GLOBE CHANGER.INSEAM LEVELER [address] [place] [address] [place] [address] Nurse Practitioner Hematology/Oncology 10/01/22 Denisha Duarte, ALEXUS [address] [place] [address] [place] [address] Specialty Wire Border Assembler Hematology/Oncology 10/01/22 Chelsie Ríos, RN Specialty Wire Border Assembler Colon and Rectal Surgery 02/18/23 02/19/28 Shutdown Planner Relationship Specialty Start Date End Date Lorenzo Olson DO PCP - General Family Medicine 04/16/13 Sera Forbes LSW Surveillance Director 09/26/22 Minerva Anderson MD [address] [place] [address] [place] [address] Physician Hematology/Oncology 10/01/22 Dania Vásquez MD [address] [place] [address] [place] [address] Physician Radiation Oncology 10/01/22 Andree Hollis APRN.INSEAM LEVELER [address] [place] [address] [place] [address] Nurse Practitioner Hematology/Oncology 10/01/22 Denisha Duarte, ALEXUS [address] [place] [address] Specialty Wire Border Assembler Hematology/Oncology 10/01/22 Chelsie Ríos, RN Specialty Wire Border Assembler Colon and Rectal Surgery 02/18/23 02/19/28 Shutdown Planner Relationship Specialty Start Date End Date Lorenzo Olson DO PCP - General Family Medicine 04/16/13 Sera Forbes LSW Surveillance Director 09/26/22 Minerva Anderson MD [address] [place] [address] Physician Hematology/Oncology 10/01/22 Dania Vásquez MD [address] [place] [place] [address] Physician Radiation Oncology 10/01/22 Andree Hollis, GLOBE CHANGER.INSEAM LEVELER [address] [place] [address] Nurse Practitioner Hematology/Oncology 10/01/22 Denisha Duarte, ALEXUS [address] [place] [address] Specialty Wire Border Assembler Hematology/Oncology 10/01/22 Chelsie Ríos RN Specialty Wire Border Assembler Colon and Rectal Surgery 02/18/23 02/19/28 Shutdown Planner Relationship Specialty Start Date End Date Lorenzo Olson DO PCP - General Family Medicine 04/16/13 Sera Forbes LSW Surveillance Director 09/26/22 Minerva Anderson MD [address] [place] [address] Physician Hematology/Oncology 10/01/22 Dania Vásquez MD [address] [place] [place] [address] Physician Radiation Oncology 10/01/22 Andree Hollis, GLOBE CHANGER.INSEAM LEVELER [address] [place] [address] Nurse Practitioner Hematology/Oncology 10/01/22 Denisha Duarte, ALEXUS [address] [place] [address] Specialty Wire Border Assembler Hematology/Oncology 10/01/22 Chelsie Ríos, RN Specialty Wire Border Assembler Colon and Rectal Surgery 02/18/23 02/19/28 Shutdown Planner Relationship Specialty Start Date End Date Lorenzo Olson DO PCP - General Family Medicine 04/16/13 Sera Forbes LSW Surveillance Director 09/26/22 Minerva Anderson MD [address] [place] [address] [place] [address] Physician Hematology/Oncology 10/01/22 Dania Vásquez MD [address] [place] [address] [place] [address] Physician Radiation Oncology 10/01/22 Andree Hollis, AZAEL.INSEAM LEVELER [address] [place] [address] [place] [address] Nurse Practitioner Hematology/Oncology 10/01/22 Denisha Duarte, ALEXUS [address] [place] [address] [place] [address] Specialty Wire Border Assembler Hematology/Oncology 10/01/22 Chelsie Ríos, RN Specialty Wire Border Assembler Colon and Rectal Surgery 02/18/23 02/19/28 Shutdown Planner Relationship Specialty Start Date End Date Lorenzo Olson DO PCP - General Family Medicine 04/16/13 Sera Forbes LSW Surveillance Director 09/26/22 Minerva Anderson MD [address] [place] [address] Physician Hematology/Oncology 10/01/22 Dania Vásquez MD [address] [place] [address] Physician Radiation Oncology 10/01/22 Andree Hollis, GLOBE CHANGER.INSEAM LEVELER [address] [place] [address] Nurse Practitioner Hematology/Oncology 10/01/22 Denisha Duarte, ALEXUS [address] [place] [address] Specialty Wire Border Assembler Hematology/Oncology 10/01/22 Chelsie Ríos, RN Specialty Wire Border Assembler Colon and Rectal Surgery 02/18/23 02/19/28 Shutdown Planner Relationship Specialty Start Date End Date Lorenzo Olson DO PCP - General Family Medicine 04/16/13 Sera Forbes LSW Surveillance Director 09/26/22 Minerva Anderson MD [address] [place] [address] Physician Hematology/Oncology 10/01/22 Dania Vásquez MD [address] [place] [address] [place] [address] Physician Radiation Oncology 10/01/22 Andree Hollis, GLOBE CHANGER.INSEAM LEVELER [address] [place] [address] Nurse Practitioner Hematology/Oncology 10/01/22 Denisha Duarte, ALEXUS [address] [place] [address] Specialty Wire Border Assembler Hematology/Oncology 10/01/22 Chelsie Ríos, RN Specialty Wire Border Assembler Colon and Rectal Surgery 02/18/23 02/19/28 Shutdown Planner Relationship Specialty Start Date End Date Lorenzo Olson DO PCP - General Family Medicine 04/16/13 Sera Forbes LSW Surveillance Director 09/26/22 Minerva Anderson MD [address] [place] [address] Physician Hematology/Oncology 10/01/22 Dania Vásquez MD [address] [place] [address] Physician Radiation Oncology 10/01/22 Andree Hollis APRN.INSEAM LEVELER [address] [place] [address] Nurse Practitioner Hematology/Oncology 10/01/22 Denisha Duarte, ALEXUS [address] [place] [address] Specialty Wire Border Assembler Hematology/Oncology 10/01/22 Chelsie Ríos, RN Specialty Wire Border Assembler Colon and Rectal Surgery 02/18/23 02/19/28 Shutdown Planner Relationship Specialty Start Date End Date Lorenzo Olson DO PCP - General Family Medicine 04/16/13 Sera Forbes LSW Surveillance Director 09/26/22 Minerva Anderson MD [address] [place] [address] Physician Hematology/Oncology 10/01/22 Dania Vásquez MD [address] [place] [address] Physician Radiation Oncology 10/01/22 Andree Hollis, GLOBE CHANGER.INSEAM LEVELER [address] [place] [address] Nurse Practitioner Hematology/Oncology 10/01/22 Denisha Duarte, RN [address] [place] [address] Specialty Wire Border Assembler Hematology/Oncology 10/01/22 Chelsie Ríos, RN Specialty Wire Border Assembler Colon and Rectal Surgery 02/18/23 02/19/28 Shutdown Planner Relationship Specialty Start Date End Date Lorenzo Olson DO PCP - General Family Medicine 04/16/13 Sera Forbes LSW Surveillance Director 09/26/22 Minerva Anderson MD [address] [place] [address] Physician Hematology/Oncology 10/01/22 Dania Vásquez MD [address] [place] [address] Physician Radiation Oncology 10/01/22 Andree Hollis, GLOBE CHANGER.INSEAM LEVELER [address] [place] [address] Nurse Practitioner Hematology/Oncology 10/01/22 Denisha Duarte, RN [address] [place] [address] Specialty Wire Border Assembler Hematology/Oncology 10/01/22 Chelsie Ríos, RN Specialty Wire Border Assembler Colon and Rectal Surgery 02/18/23 02/19/28 Shutdown Planner Relationship Specialty Start Date End Date Lorenzo Olson DO PCP - General Family Medicine 04/16/13 Sera Forbes, [facility] Surveillance Director 09/26/22 Minerva Anderson MD [address] [place] [address] Physician Hematology/Oncology 10/01/22 Dania Vásquez MD [address] [place] [address] Physician Radiation Oncology 10/01/22 Andree Hollis, AZAEL.INSEAM LEVELER [address] [place] [address] Nurse Practitioner Hematology/Oncology 10/01/22 Denisha Duarte RN [address] [place] [address] Specialty Wire Border Assembler Hematology/Oncology 10/01/22 Chelsie Ríos RN Specialty Wire Border Assembler Colon and Rectal Surgery 02/18/23 02/19/28 Shutdown Planner Relationship Specialty Start Date End Date Lorenzo Olson DO PCP - General Family Medicine 04/16/13 Sera Forbes, [facility] Surveillance Director 09/26/22 Minerva Anderson MD [address] [place] [address] [place] [address] Physician Hematology/Oncology 10/01/22 Dania Vásquez MD [address] [place] [address] Physician Radiation Oncology 10/01/22 Andree Hollis, AZAEL.INSEAM LEVELER [address] [place] [address] Nurse Practitioner Hematology/Oncology 10/01/22 Denisha Duarte, ALEXUS [address] [place] [address] Specialty Wire Border Assembler Hematology/Oncology 10/01/22 Chelsie Ríos, RN Specialty Wire Border Assembler Colon and Rectal Surgery 02/18/23 02/19/28 Shutdown Planner Relationship Specialty Start Date End Date Lorenzo Olson DO PCP - General Family Medicine 04/16/13 Sera Forbse, [employer] ARCHITECT Surveillance Director 09/26/22 Minerva Anderson MD [address] [place] [address] [place] [address] Physician Hematology/Oncology 10/01/22 Dania Vásquez MD [address] [place] [address] Physician Radiation Oncology 10/01/22 Andree Hollis APRN.INSEAM LEVELER [address] [place] [address] Nurse Practitioner Hematology/Oncology 10/01/22 Denisha Duarte, ALEXUS [address] [place] [address] Specialty Wire Border Assembler Hematology/Oncology 10/01/22 Chelsie Ríos, RN Specialty Wire Border Assembler Colon and Rectal Surgery 02/18/23 02/19/28 Shutdown Planner Relationship Specialty Start Date End Date Lorenzo Olson DO PCP - General Family Medicine 04/16/13 Sera Forbes, [employer] ARCHITECT Surveillance Director 09/26/22 Minerva Anderson MD [address] [place] [address] Physician Hematology/Oncology 10/01/22 Dania Vásquez MD [address] [place] [address] [place] [address] Physician Radiation Oncology 10/01/22 Andree Hollis, GLOBE CHANGER.INSEAM LEVELER [address] [place] [address] [place] [address] Nurse Practitioner Hematology/Oncology 10/01/22 Denisha Duarte, ALEXUS [address] [place] [address] [place] [address] Specialty Wire Border Assembler Hematology/Oncology 10/01/22 Chelsie Ríos RN Specialty Wire Border Assembler Colon and Rectal Surgery 02/18/23 02/19/28 Shutdown Planner Relationship Specialty Start Date End Date Lorenzo Olson DO PCP - General Family Medicine 04/16/13 Sera Forbes LSW Surveillance Director 09/26/22 Minerva Anderson MD [address] [place] [address] [place] [address] Physician Hematology/Oncology 10/01/22 Dania Vásquez MD [address] [place] [address] [place] [address] Physician Radiation Oncology 10/01/22 Andree Hollis, GLOBE CHANGER.INSEAM LEVELER [address] [place] [address] [place] [address] Nurse Practitioner Hematology/Oncology 10/01/22 Denisha Duarte, ALEXUS [address] [place] [address] Specialty Wire Border Assembler Hematology/Oncology 10/01/22 Chelsie Ríos, RN Specialty Wire Border Assembler Colon and Rectal Surgery 02/18/23 02/19/28 Shutdown Planner Relationship Specialty Start Date End Date Lorenzo Olson DO PCP - General Family Medicine 04/16/13 Sera Forbes LSW Surveillance Director 09/26/22 Minerva Anderson MD [address] [place] [address] Physician Hematology/Oncology 10/01/22 Dania Vásquez MD [address] [place] [address] [place] [address] Physician Radiation Oncology 10/01/22 Andree Hollis APRN.INSEAM LEVELER [address] [place] [address] Nurse Practitioner Hematology/Oncology 10/01/22 Denisha Duarte, ALEXUS [address] [place] [address] Specialty Wire Border Assembler Hematology/Oncology 10/01/22 Chelsie Ríos, RN Specialty Wire Border Assembler Colon and Rectal Surgery 02/18/23 02/19/28 Shutdown Planner Relationship Specialty Start Date End Date Lorenzo Olson DO PCP - General Family Medicine 04/16/13 Sera Forbes LSW Surveillance Director 09/26/22 Minerva Anderson MD [address] [place] [place] [address] Physician Hematology/Oncology 10/01/22 Dania Vásquez MD [address] [place] [address] [place] [address] Physician Radiation Oncology 10/01/22 Andree Hollis, GLOBE CHANGER.INSEAM LEVELER [address] [place] [address] [place] [address] Nurse Practitioner Hematology/Oncology 10/01/22 Denisha Duarte, ALEXUS [address] [place] [address] [place] [address] Specialty Wire Border Assembler Hematology/Oncology 10/01/22 Chelsie Ríos, RN Specialty Wire Border Assembler Colon and Rectal Surgery 02/18/23 02/19/28 Shutdown Planner Relationship Specialty Start Date End Date Lorenzo Olson DO PCP - General Family Medicine 04/16/13 eSra Forbes LSW Surveillance Director 09/26/22 Minerva Anderson MD [address] [place] [address] [place] [address] Physician Hematology/Oncology 10/01/22 Dania Vásquez MD [address] [place] [address] [place] [address] Physician Radiation Oncology 10/01/22 Andree Hollis, GLOBE CHANGER.INSEAM LEVELER [address] [place] [address] [place] [address] Nurse Practitioner Hematology/Oncology 10/01/22 Denisha Duarte, ALEXUS [address] [place] [address] Specialty Wire Border Assembler Hematology/Oncology 10/01/22 Chelsie Ríos, RN Specialty Wire Border Assembler Colon and Rectal Surgery 02/18/23 02/19/28 Shutdown Planner Relationship Specialty Start Date End Date Lorenzo Olson DO PCP - General Family Medicine 04/16/13 Sera Forbes LSW Surveillance Director 09/26/22 Mienrva Anderson MD [address] [place] [address] [place], [place] [id number] Physician Hematology/Oncology 10/01/22 Dania Vásquez MD [address] [place] [address] Physician Radiation Oncology 10/01/22 Andree Hollis APRN.[facility] [address] [place] [address] [place] [address] Nurse Practitioner Hematology/Oncology 10/01/22 Denisha Duarte, ALEXUS [address] [place] [address] [place], [place] [id number] Specialty Wire Border Assembler Hematology/Oncology 10/01/22 Chelsie Ríos, ALEXUS Specialty Wire Border Assembler Colon and Rectal Surgery 02/18/23 02/19/28 Source Comments (unrecognize d section and content) In the event this informatio n is protected by the [facility] Confidentiality of Alcohol and Drug Abuse Patient Records regulations: The Federal rules restrict any use of the information to criminally investigate or prosecute any alcohol or drug abuse patient.[facility] the event this information is protected by the Federal Confidentiality of Alcohol and Drug Abuse Patient Records regulations: The Federal rules restrict any use of the information to criminally investigate or prosecute any alcohol or drug abuse patient.[facility] CenterIn the event this information is protected by the Federal Confidentiality of Alcohol and Drug Abuse Patient Records regulations: The Federal rules restrict any use of the information to criminally investigate or prosecute any alcohol or drug abuse patient.[facility] CenterIn the event this information is protected by the Federal Confidentiality of Alcohol and Drug Abuse Patient Records regulations: The Federal rules restrict any use of the information to criminally investigate or prosecute any alcohol or drug abuse patient.[facility] CenterIn the event this information is protected by the Federal Confidentiality of Alcohol and Drug Abuse Patient Records regulations: The Federal rules restrict any use of the information to criminally investigate or prosecute any alcohol or drug abuse patient.[facility] CenterIn the event this information is protected by the Federal Confidentiality of Alcohol and Drug Abuse Patient Records regulations: The Federal rules restrict any use of the information to criminally investigate or prosecute any alcohol or drug abuse patient.[facility] CenterIn the event this information is protected by the Federal Confidentiality of Alcohol and Drug Abuse Patient Records regulations: The Federal rules restrict any use of the information to criminally investigate or prosecute any alcohol or drug abuse patient.[facility] CenterIn the event this information is protected by the Federal Confidentiality of Alcohol and Drug Abuse Patient Records regulations: The Federal rules restrict any use of the information to criminally investigate or prosecute any alcohol or drug abuse patient.[facility] CenterIn the event this information is protected by the Federal Confidentiality of Alcohol and Drug Abuse Patient Records regulations: The Federal rules restrict any use of the information to criminally investigate or prosecute any alcohol or drug abuse patient.[facility] CenterIn the event this information is protected by the Federal Confidentiality of Alcohol and Drug Abuse Patient Records regulations: The Federal rules restrict any use of the information to criminally investigate or prosecute any alcohol or drug abuse patient.[facility] CenterIn the event this information is protected by the Federal Confidentiality of Alcohol and Drug Abuse Patient Records regulations: The Federal rules restrict any use of the information to criminally investigate or prosecute any alcohol or drug abuse patient.[facility] CenterIn the event this information is protected by the Federal Confidentiality of Alcohol and Drug Abuse Patient Records regulations: The Federal rules restrict any use of the information to criminally investigate or prosecute any alcohol or drug abuse patient.[facility] CenterIn the event this information is protected by the Federal Confidentiality of Alcohol and Drug Abuse Patient Records regulations: The Federal rules restrict any use of the information to criminally investigate or prosecute any alcohol or drug abuse patient.[facility] CenterIn the event this information is protected by the Federal Confidentiality of Alcohol and Drug Abuse Patient Records regulations: The Federal rules restrict any use of the information to criminally investigate or prosecute any alcohol or drug abuse patient.[facility] CenterIn the event this information is protected by the Federal Confidentiality of Alcohol and Drug Abuse Patient Records regulations: The Federal rules restrict any use of the information to criminally investigate or prosecute any alcohol or drug abuse patient.[facility] CenterIn the event this information is protected by the Federal Confidentiality of Alcohol and Drug Abuse Patient Records regulations: The Federal rules restrict any use of the information to criminally investigate or prosecute any alcohol or drug abuse patient.[facility] CenterIn the event this information is protected by the Federal Confidentiality of Alcohol and Drug Abuse Patient Records regulations: The Federal rules restrict any use of the information to criminally investigate or prosecute any alcohol or drug abuse patient.[facility] CenterIn the event this information is protected by the Federal Confidentiality of Alcohol and Drug Abuse Patient Records regulations: The Federal rules restrict any use of the information to criminally investigate or prosecute any alcohol or drug abuse patient.[facility] CenterIn the event this information is protected by the Federal Confidentiality of Alcohol and Drug Abuse Patient Records regulations: The Federal rules restrict any use of the information to criminally investigate or prosecute any alcohol or drug abuse patient.[facility] CenterIn the event this information is protected by the Federal Confidentiality of Alcohol and Drug Abuse Patient Records regulations: The Federal rules restrict any use of the information to criminally investigate or prosecute any alcohol or drug abuse patient.[facility] CenterIn the event this information is protected by the Federal Confidentiality of Alcohol and Drug Abuse Patient Records regulations: The Federal rules restrict any use of the information to criminally investigate or prosecute any alcohol or drug abuse patient.[facility] CenterIn the event this information is protected by the Federal Confidentiality of Alcohol and Drug Abuse Patient Records regulations: The Federal rules restrict any use of the information to criminally investigate or prosecute any alcohol or drug abuse patient.[facility] CenterIn the event this information is protected by the Federal Confidentiality of Alcohol and Drug Abuse Patient Records regulations: The Federal rules restrict any use of the information to criminally investigate or prosecute any alcohol or drug abuse patient.[facility] CenterIn the event this information is protected by the Federal Confidentiality of Alcohol and Drug Abuse Patient Records regulations: The Federal rules restrict any use of the information to criminally investigate or prosecute any alcohol or drug abuse patient.[facility] CenterIn the event this information is protected by the Federal Confidentiality of Alcohol and Drug Abuse Patient Records regulations: The Federal rules restrict any use of the information to criminally investigate or prosecute any alcohol or drug abuse patient.[facility] CenterIn the event this information is protected by the Federal Confidentiality of Alcohol and Drug Abuse Patient Records regulations: The Federal rules restrict any use of the information to criminally investigate or prosecute any alcohol or drug abuse patient.[facility]In the event this information is protected by the Federal Confidentiality of Alcohol and Drug Abuse Patient Records regulations: The Federal rules restrict any use of the information to criminally investigate or prosecute any alcohol or drug abuse patient.[facility] CenterIn the event this information is protected by the Federal Confidentiality of Alcohol and Drug Abuse Patient Records regulations: The Federal rules restrict any use of the information to criminally investigate or prosecute any alcohol or drug abuse patient.[facility] CenterIn the event this information is protected by the Federal Confidentiality of Alcohol and Drug Abuse Patient Records regulations: The Federal rules restrict any use of the information to criminally investigate or prosecute any alcohol or drug abuse patient.[facility] CenterIn the event this information is protected by the Federal Confidentiality of Alcohol and Drug Abuse Patient Records regulations: The Federal rules restrict any use of the information to criminally investigate or prosecute any alcohol or drug abuse patient.[facility] CenterIn the event this information is protected by the Federal Confidentiality of Alcohol and Drug Abuse Patient Records regulations: The Federal rules restrict any use of the information to criminally investigate or prosecute any alcohol or drug abuse patient.[facility] CenterIn the event this information is protected by the Federal Confidentiality of Alcohol and Drug Abuse Patient Records regulations: The Federal rules restrict any use of the information to criminally investigate or prosecute any alcohol or drug abuse patient.[facility] CenterIn the event this information is protected by the Federal Confidentiality of Alcohol and Drug Abuse Patient Records regulations: The Federal rules restrict any use of the information to criminally investigate or prosecute any alcohol or drug abuse patient.[facility]In the event this information is protected by the Federal Confidentiality of Alcohol and Drug Abuse Patient Records regulations: The Federal rules restrict any use of the information to criminally investigate or prosecute any alcohol or drug abuse patient.[facility] CenterIn the event this information is protected by the Federal Confidentiality of Alcohol and Drug Abuse Patient Records regulations: The Federal rules restrict any use of the information to criminally investigate or prosecute any alcohol or drug abuse patient.[facility] CenterIn the event this information is protected by the Federal Confidentiality of Alcohol and Drug Abuse Patient Records regulations: The Federal rules restrict any use of the information to criminally investigate or prosecute any alcohol or drug abuse patient.[facility]In the event this information is protected by the Federal Confidentiality of Alcohol and Drug Abuse Patient Records regulations: The Federal rules restrict any use of the information to criminally investigate or prosecute any alcohol or drug abuse patient.[facility] CenterIn the event this information is protected by the Federal Confidentiality of Alcohol and Drug Abuse Patient Records regulations: The Federal rules restrict any use of the information to criminally investigate or prosecute any alcohol or drug abuse patient.[facility]In the event this information is protected by the Federal Confidentiality of Alcohol and Drug Abuse Patient Records regulations: The Federal rules restrict any use of the information to criminally investigate or prosecute any alcohol or drug abuse patient.[facility]In the event this information is protected by the Federal Confidentiality of Alcohol and Drug Abuse Patient Records regulations: The Federal rules restrict any use of the information to criminally investigate or prosecute any alcohol or drug abuse patient.[facility]In the event this information is protected by the Federal Confidentiality of Alcohol and Drug Abuse Patient Records regulations: The Federal rules restrict any use of the information to criminally investigate or prosecute any alcohol or drug abuse patient.[facility]In the event this information is protected by the Federal Confidentiality of Alcohol and Drug Abuse Patient Records regulations: The Federal rules restrict any use of the information to criminally investigate or prosecute any alcohol or drug abuse patient.[facility] CenterIn the event this information is protected by the Federal Confidentiality of Alcohol and Drug Abuse Patient Records regulations: The Federal rules restrict any use of the information to criminally investigate or prosecute any alcohol or drug abuse patient.[facility]In the event this information is protected by the Federal Confidentiality of Alcohol and Drug Abuse Patient Records regulations: The Federal rules restrict any use of the information to criminally investigate or prosecute any alcohol or drug abuse patient.[facility]In the event this information is protected by the Federal Confidentiality of Alcohol and Drug Abuse Patient Records regulations: The Federal rules restrict any use of the information to criminally investigate or prosecute any alcohol or drug abuse patient.[facility]In the event this information is protected by the Federal Confidentiality of Alcohol and Drug Abuse Patient Records regulations: The Federal rules restrict any use of the information to criminally investigate or prosecute any alcohol or drug abuse patient.[facility]In the event this information is protected by the Federal Confidentiality of Alcohol and Drug Abuse Patient Records regulations: The Federal rules restrict any use of the information to criminally investigate or prosecute any alcohol or drug abuse patient.[facility]In the event this information is protected by the Federal Confidentiality of Alcohol and Drug Abuse Patient Records regulations: The Federal rules restrict any use of the information to criminally investigate or prosecute any alcohol or drug abuse patient.[facility]In the event this information is protected by the Federal Confidentiality of Alcohol and Drug Abuse Patient Records regulations: The Federal rules restrict any use of the information to criminally investigate or prosecute any alcohol or drug abuse patient.[facility]In the event this information is protected by the Federal Confidentiality of Alcohol and Drug Abuse Patient Records regulations: The Federal rules restrict any use of the information to criminally investigate or prosecute any alcohol or drug abuse patient.[facility]In the event this information is protected by the Federal Confidentiality of Alcohol and Drug Abuse Patient Records regulations: The Federal rules restrict any use of the information to criminally investigate or prosecute any alcohol or drug abuse patient.[facility]In the event this information is protected by the Federal Confidentiality of Alcohol and Drug Abuse Patient Records regulations: The Federal rules restrict any use of the information to criminally investigate or prosecute any alcohol or drug abuse patient.[facility]In the event this information is protected by the Federal Confidentiality of Alcohol and Drug Abuse Patient Records regulations: The Federal rules restrict any use of the information to criminally investigate or prosecute any alcohol or drug abuse patient.[facility]In the event this information is protected by the Federal Confidentiality of Alcohol and Drug Abuse Patient Records regulations: The Federal rules restrict any use of the information to criminally investigate or prosecute any alcohol or drug abuse patient.[facility]In the event this information is protected by the Federal Confidentiality of Alcohol and Drug Abuse Patient Records regulations: The Federal rules restrict any use of the information to criminally investigate or prosecute any alcohol or drug abuse patient.[facility]In the event this information is protected by the Federal Confidentiality of Alcohol and Drug Abuse Patient Records regulations: The Federal rules restrict any use of the information to criminally investigate or prosecute any alcohol or drug abuse patient.[facility]In the event this information is protected by the Federal Confidentiality of Alcohol and Drug Abuse Patient Records regulations: The Federal rules restrict any use of the information to criminally investigate or prosecute any alcohol or drug abuse patient.[facility]In the event this information is protected by the Federal Confidentiality of Alcohol and Drug Abuse Patient Records regulations: The Federal rules restrict any use of the information to criminally investigate or prosecute any alcohol or drug abuse patient.[facility]In the event this information is protected by the Federal Confidentiality of Alcohol and Drug Abuse Patient Records regulations: The Federal rules restrict any use of the information to criminally investigate or prosecute any alcohol or drug abuse patient.[facility]In the event this information is protected by the Federal Confidentiality of Alcohol and Drug Abuse Patient Records regulations: The Federal rules restrict any use of the information to criminally investigate or prosecute any alcohol or drug abuse patient.[facility]In the event this information is protected by the Federal Confidentiality of Alcohol and Drug Abuse Patient Records regulations: The Federal rules restrict any use of the information to criminally investigate or prosecute any alcohol or drug abuse patient.[facility]In the event this information is protected by the Federal Confidentiality of Alcohol and Drug Abuse Patient Records regulations: The Federal rules restrict any use of the information to criminally investigate or prosecute any alcohol or drug abuse patient.[facility]In the event this information is protected by the Federal Confidentiality of Alcohol and Drug Abuse Patient Records regulations: The Federal rules restrict any use of the information to criminally investigate or prosecute any alcohol or drug abuse patient.[facility]In the event this information is protected by the Federal Confidentiality of Alcohol and Drug Abuse Patient Records regulations: The Federal rules restrict any use of the information to criminally investigate or prosecute any alcohol or drug abuse patient.[facility]In the event this information is protected by the Federal Confidentiality of Alcohol and Drug Abuse Patient Records regulations: The Federal rules restrict any use of the information to criminally investigate or prosecute any alcohol or drug abuse patient.[facility]In the event this information is protected by the Federal Confidentiality of Alcohol and Drug Abuse Patient Records regulations: The Federal rules restrict any use of the information to criminally investigate or prosecute any alcohol or drug abuse patient.[facility]In the event this information is protected by the Federal Confidentiality of Alcohol and Drug Abuse Patient Records regulations: The Federal rules restrict any use of the information to criminally investigate or prosecute any alcohol or drug abuse patient.[facility]In the event this information is protected by the Federal Confidentiality of Alcohol and Drug Abuse Patient Records regulations: The Federal rules restrict any use of the information to criminally investigate or prosecute any alcohol or drug abuse patient.[facility]In the event this information is protected by the Federal Confidentiality of Alcohol and Drug Abuse Patient Records regulations: The Federal rules restrict any use of the information to criminally investigate or prosecute any alcohol or drug abuse patient.[facility]In the event this information is protected by the Federal Confidentiality of Alcohol and Drug Abuse Patient Records regulations: The Federal rules restrict any use of the information to criminally investigate or prosecute any alcohol or drug abuse patient.[facility]In the event this information is protected by the Federal Confidentiality of Alcohol and Drug Abuse Patient Records regulations: The Federal rules restrict any use of the information to criminally investigate or prosecute any alcohol or drug abuse patient.[facility]In the event this information is protected by the Federal Confidentiality of Alcohol and Drug Abuse Patient Records regulations: The Federal rules restrict any use of the information to criminally investigate or prosecute any alcohol or drug abuse patient.[facility]In the event this information is protected by the Federal Confidentiality of Alcohol and Drug Abuse Patient Records regulations: The Federal rules restrict any use of the information to criminally investigate or prosecute any alcohol or drug abuse patient.[facility]In the event this information is protected by the Federal Confidentiality of Alcohol and Drug Abuse Patient Records regulations: The Federal rules restrict any use of the information to criminally investigate or prosecute any alcohol or drug abuse patient.[facility]In the event this information is protected by the Federal Confidentiality of Alcohol and Drug Abuse Patient Records regulations: The Federal rules restrict any use of the information to criminally investigate or prosecute any alcohol or drug abuse patient.[facility]In the event this information is protected by the Federal Confidentiality of Alcohol and Drug Abuse Patient Records regulations: The Federal rules restrict any use of the information to criminally investigate or prosecute any alcohol or drug abuse patient.[facility]In the event this information is protected by the Federal Confidentiality of Alcohol and Drug Abuse Patient Records regulations: The Federal rules restrict any use of the information to criminally investigate or prosecute any alcohol or drug abuse patient.[facility]In the event this information is protected by the Federal Confidentiality of Alcohol and Drug Abuse Patient Records regulations: The Federal rules restrict any use of the information to criminally investigate or prosecute any alcohol or drug abuse patient.[facility]In the event this information is protected by the Federal Confidentiality of Alcohol and Drug Abuse Patient Records regulations: The Federal rules restrict any use of the information to criminally investigate or prosecute any alcohol or drug abuse patient.[facility]In the event this information is protected by the Federal Confidentiality of Alcohol and Drug Abuse Patient Records regulations: The Federal rules restrict any use of the information to criminally investigate or prosecute any alcohol or drug abuse patient.[facility]In the event this information is protected by the Federal Confidentiality of Alcohol and Drug Abuse Patient Records regulations: The Federal rules restrict any use of the information to criminally investigate or prosecute any alcohol or drug abuse patient.[facility]In the event this information is protected by the Federal Confidentiality of Alcohol and Drug Abuse Patient Records regulations: The Federal rules restrict any use of the information to criminally investigate or prosecute any alcohol or drug abuse patient.[facility]In the event this information is protected by the Federal Confidentiality of Alcohol and Drug Abuse Patient Records regulations: The Federal rules restrict any use of the information to criminally investigate or prosecute any alcohol or drug abuse patient.[facility]In the event this information is protected by the Federal Confidentiality of Alcohol and Drug Abuse Patient Records regulations: The Federal rules restrict any use of the information to criminally investigate or prosecute any alcohol or drug abuse patient.[facility]In the event this information is protected by the Federal Confidentiality of Alcohol and Drug Abuse Patient Records regulations: The Federal rules restrict any use of the information to criminally investigate or prosecute any alcohol or drug abuse patient.[facility]In the event this information is protected by the Federal Confidentiality of Alcohol and Drug Abuse Patient Records regulations: The Federal rules restrict any use of the information to criminally investigate or prosecute any alcohol or drug abuse patient.[facility]In the event this information is protected by the Federal Confidentiality of Alcohol and Drug Abuse Patient Records regulations: The Federal rules restrict any use of the information to criminally investigate or prosecute any alcohol or drug abuse patient.[facility]In the event this information is protected by the Federal Confidentiality of Alcohol and Drug Abuse Patient Records regulations: The Federal rules restrict any use of the information to criminally investigate or prosecute any alcohol or drug abuse patient.[facility]In the event this information is protected by the Federal Confidentiality of Alcohol and Drug Abuse Patient Records regulations: The Federal rules restrict any use of the information to criminally investigate or prosecute any alcohol or drug abuse patient.[facility]In the event this information is protected by the Federal Confidentiality of Alcohol and Drug Abuse Patient Records regulations: The Federal rules restrict any use of the information to criminally investigate or prosecute any alcohol or drug abuse patient.[facility]In the event this information is protected by the Federal Confidentiality of Alcohol and Drug Abuse Patient Records regulations: The Federal rules restrict any use of the information to criminally investigate or prosecute any alcohol or drug abuse patient.[facility]In the event this information is protected by the Federal Confidentiality of Alcohol and Drug Abuse Patient Records regulations: The Federal rules restrict any use of the information to criminally investigate or prosecute any alcohol or drug abuse patient.[facility]In the event this information is protected by the Federal Confidentiality of Alcohol and Drug Abuse Patient Records regulations: The Federal rules restrict any use of the information to criminally investigate or prosecute any alcohol or drug abuse patient.[facility]In the event this information is protected by the Federal Confidentiality of Alcohol and Drug Abuse Patient Records regulations: The Federal rules restrict any use of the information to criminally investigate or prosecute any alcohol or drug abuse patient.[facility]In the event this information is protected by the Federal Confidentiality of Alcohol and Drug Abuse Patient Records regulations: The Federal rules restrict any use of the information to criminally investigate or prosecute any alcohol or drug abuse patient.[facility]In the event this information is protected by the Federal Confidentiality of Alcohol and Drug Abuse Patient Records regulations: The Federal rules restrict any use of the information to criminally investigate or prosecute any alcohol or drug abuse patient.[facility]In the event this information is protected by the Federal Confidentiality of Alcohol and Drug Abuse Patient Records regulations: The Federal rules restrict any use of the information to criminally investigate or prosecute any alcohol or drug abuse patient.[facility]In the event this information is protected by the Federal Confidentiality of Alcohol and Drug Abuse Patient Records regulations: The Federal rules restrict any use of the information to criminally investigate or prosecute any alcohol or drug abuse patient.[facility]In the event this information is protected by the Federal Confidentiality of Alcohol and Drug Abuse Patient Records regulations: The Federal rules restrict any use of the information to criminally investigate or prosecute any alcohol or drug abuse patient.[facility]In the event this information is protected by the Federal Confidentiality of Alcohol and Drug Abuse Patient Records regulations: The Federal rules restrict any use of the information to criminally investigate or prosecute any alcohol or drug abuse patient.[facility]In the event this information is protected by the Federal Confidentiality of Alcohol and Drug Abuse Patient Records regulations: The Federal rules restrict any use of the information to criminally investigate or prosecute any alcohol or drug abuse patient.[facility]In the event this information is protected by the Federal Confidentiality of Alcohol and Drug Abuse Patient Records regulations: The Federal rules restrict any use of the information to criminally investigate or prosecute any alcohol or drug abuse patient.[facility]In the event this information is protected by the Federal Confidentiality of Alcohol and Drug Abuse Patient Records regulations: The Federal rules restrict any use of the information to criminally investigate or prosecute any alcohol or drug abuse patient.[facility]In the event this information is protected by the Federal Confidentiality of Alcohol and Drug Abuse Patient Records regulations: The Federal rules restrict any use of the information to criminally investigate or prosecute any alcohol or drug abuse patient.[facility]In the event this information is protected by the Federal Confidentiality of Alcohol and Drug Abuse Patient Records regulations: The Federal rules restrict any use of the information to criminally investigate or prosecute any alcohol or drug abuse patient.[facility]In the event this information is protected by the Federal Confidentiality of Alcohol and Drug Abuse Patient Records regulations: The Federal rules restrict any use of the information to criminally investigate or prosecute any alcohol or drug abuse patient.[facility]In the event this information is protected by the Federal Confidentiality of Alcohol and Drug Abuse Patient Records regulations: The Federal rules restrict any use of the information to criminally investigate or prosecute any alcohol or drug abuse patient.[facility]In the event this information is protected by the Federal Confidentiality of Alcohol and Drug Abuse Patient Records regulations: The Federal rules restrict any use of the information to criminally investigate or prosecute any alcohol or drug abuse patient.[facility]In the event this information is protected by the Federal Confidentiality of Alcohol and Drug Abuse Patient Records regulations: The Federal rules restrict any use of the information to criminally investigate or prosecute any alcohol or drug abuse patient.[facility] CenterIn the event this information is protected by the Federal Confidentiality of Alcohol and Drug Abuse Patient Records regulations: The Federal rules restrict any use of the information to criminally investigate or prosecute any alcohol or drug abuse patient.[facility] the event this information is protected by the Federal Confidentiality of Alcohol and Drug Abuse Patient Records regulations: The Federal rules restrict any use of the information to criminally investigate or prosecute any alcohol or drug abuse patient.[facility] Center[facility] the event this information is protected by the Federal Confidentiality of Alcohol and Drug Abuse Patient Records regulations: The Federal rules restrict any use of the information to criminally investigate or prosecute any alcohol or drug abuse patient.[facility] Reason for Visit (unrecogniz ed section [...] Diagnoses Rectal cancer (HCC) Minerva Anderson MD [address] [place] [address] [place] [address] Juan Carlos Simon [address] [place] [address] Referral ID Status Reason Start Date Expiration Date V isits Requested Visits Authorized [id number] Authorized 12/17/2022 03/17/2023 99 99 Reason Comments Care Coordination C1D1 treatment follo w up call Specialty Diagnoses / Procedures Referred By Contac t Referred To Contact Hematology / HEMATOLOGY/ONCOLOGY Diagnoses lab port chemotx FOLFOX *NEW START CHANGE IN TREATMENT* Procedures LAB/PORT Minerva Anderson MD [address] [place] [address] [place] [address] Juan Carlos Simon [address] [place] [address] Referral ID Status Reason Start Date Expiration Date V isits Requested Visits Authorized [id number] Authorized 12/25/2022 10/20/2023 99 99 Reason Comments Rectal Cancer OTV 2 weeks 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 Reason Comments Care Coordination US Order Reason Onset Date Comments Refill Request 01/23/2023 Reason Comments Care Coordination DVT; Eliquis Reason Comments New Patient Evaluation Rectal Bleeding Specialty Diagnoses / Procedures Referred By Contac t Referred To Contact Gastroenterology Diagnoses Rectal cancer (HCC) Rectal bleeding Procedures CONSULT TO GASTROENTEROLOGY OFFICE/OUTPATIENT NEW HIGH MDM 60-74 MINUTES Andree Hollis, GLOBE CHANGER.[employer]EL[employer] [address] [place] [address] Referral ID Status Reason Start Date Expiration Date V isits Requested Visits Authorized [id number] Closed PCP Requested Referral 01/23/2023 01/23/2024 1 1 Reason Comments New Patient Consult for rectal c ancer Reason Comments Rectal Cancer Treatment visit/port draw Reason Comments Medication Assistance Approved for Free Xarelto Reason Comments Patient Question Reason Comments Care Coordination MRI Question Reason Comments Orders Flex sig, CEA, MRI, CT 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 Comments Wire Border Assembler - Other Lab Results; Ne uropathy Reason Comments Port Flush Specialty Diagnoses / Procedures Referred By Contac t Referred To Contact Hematology / HEMATOLOGY/ONCOLOGY Diagnoses lab port chemotx FOLFOX *NEW START CHANGE IN TREATMENT* Procedures LAB/PORT Minerva Anderson MD [address] [place] [address] Juan Carlos Arya [address] [place] [address] Specialty Diagnoses / Procedures Referred By Contac t Referred To Contact MR IMAGING Diagnoses Malignant neoplasm of rectum (HCC) Procedures MRI RECTUM WO/W IVCON MRI PELVIS W/O & [place] [address] [place] [address] Mr [facility] [place] [address] Referral ID Status Reason Start Date Expiration Date V isits Requested Visits Authorized [id number] Closed Auto-Generate d Referral 05/03/2023 06/01/2024 1 1 Goals (unrecognized section and content) Goals may [...] BE BASED ON THE PRIMARY CLINICAL RECORDS. [facility]. provides no warranty or guarantee of the accuracy or completeness of information in this document.
--- NOTE | 2023-12-04 09:12 | P.CN_ITS ---
Consult Note: HPI Data of Consult Patient: known to practice within the last 3 years Consult date: 11/21/23 Requesting Physician: Ml Antony NP Primary Care Provider: LORENZO OLSON Consult Narrative Reason for consult: f/u Narrative: Eron Damon a pleasant 73 year old male presents for evaluation and manage ment of chronic low back pain unresponsive to PT/HEP, conservative medications. Patient recently underwent left (#1) and right (#2) L4/5 L5/S1 facet medial branch block with 80% pain relief and functional improvement immediately after and hours following . Today pain in left low back 3/10 pinching/nerve pain . Pain increased with standing, walking, housework, lifting legs, stairs, activity. We will need to do fMBB #2 at left L4/5 L5/S1 before proceeding with thermal RFA. cc:: CC: Ml Antony NP Review of Systems ROS Status of ROS 10 or more systems reviewed and unremark able except as noted in history and below Musculoskeletal Reports: back pain PFSH PFSH Medical History (Updated 11/21/23 @ 12:50 by Ml Antony NP) Fusion of spine, cervical region ?M43.22 - Fusion of spine, cervical region (ICD-10) Rectal cancer ?C20 - Malignant neoplasm of rectum (ICD-10) Rheumatoid arthritis ?M06.9 - Rheumatoid arthritis, unspecified (ICD-10) Pulmonary emboli ?I26.99 - Other pulmonary embolism without acute cor pulmonale (ICD-10) Surgical History H/O foot surgery ?Z98.890 - Other specified postprocedural states (ICD-10) Meds Home Medications and Allergies Home Medications Medication Instructions Recorded Confirmed Type ascorbic acid (vitamin C) 500 mg 500 mg PO DAILY 10/30/23 11/26/23 History chewable tablet (Acerola C) calcium 600 mg capsule mg PO 10/30/23 History carvedilol 6.25 mg tablet 6.25 mg PO BID 10/30/23 11/26/23 History finasteride 5 mg tablet 5 mg PO DAILY 10/30/23 11/26/23 History glucosamine sulfate 500 mg tablet 500 mg PO DAILY 10/30/23 11/26/23 History (Glucosamine) prednisone 5 mg tablet 5 mg PO DAILY 10/30/23 11/26/23 History rivaroxaban 10 mg tablet (Xarelto) 10 mg PO DAILY 10/30/23 11/26/23 History tamsulosin 0.4 mg capsule 0.4 mg PO DAILY 10/30/23 11/26/23 History valsartan 80 mg tablet 80 mg PO DAILY 10/30/23 11/26/23 History Allergies Allergy/AdvReac Type Severity Reaction Status Date / Time No Known Drug Allergies Allergy Verified 11/26/23 07:15 Exam Constitutional Documenting provider has reviewed patient's vital signs: yes Common normals: no apparent distress, oriented x3, healthy appearing, alert and well nourished General appearance: cooperative HENMT Common normals: normocephalic, hearing grossly normal bilaterally and moist oral mucous membranes Head and scalp: normocephalic Eye Common normals: PERRL Pupil: PERRL Neck & C-Spine Common normals: full ROM General: normal visual inspection Chest Common normals: inspection of chest normal Respiratory Common normals: normal respiratory effort, no retractions and no use of accessory muscles Back & Pelvis Lumbar spine/lower back: ROM limited, pain with ROM and straight leg raise negative bilaterally Sacroiliac joints: SI joints normal Other: axial low back pain Neuro Common normals: oriented x3, CN's II-XII intact bilaterally, moves all extremities, no focal motor deficits, no sensory deficits noted and deep tendon reflexes 2+ bilaterally Sensorium/orientation: alert Motor exam: strength 5/5 throughout and no movement abnormalities noted Psych Common normals: mental status grossly normal, thought process normal, cooperative, affect normal, speech normal and activity/motor behavior normal Speech: normal speech Thought process: normal thought process Results Additional Findings Additional findings: I have checked an OARRS report on this patient today and there are no aberrancies noted in the prescribing history.?? A drug screen was completed and reviewed within the last year, and if there has not been a drug screen completed we ordered one today to monitor higher risk, state monitored pain medication use. As part of providing excellent, safe, comprehensive care, the following was completed at our patient's visit: 1. A medication reconciliation and review to ensure accurate knowledge of current/active medications, including asking our patients to inform us about any [id number]-yxtdssx medications or herbal remedies/nutritional supplements/alternative remedies. 2. A review to specifically ensure our patients have had annual screening for: elevated body mass index (BMI), tobacco use, screening for depression, and screening for unhealthy alcohol use. When screening is concerning, patients are provided with education and the specific recommendation to discuss the concerning health issue and treatment options with their primary care provider. Assessment and Plan Assessment and Plan (1) Lumbar spondylosis: Assessment and Plan: The patient has had over 3 months of moderate to severe low back pain with functional impairment and inadequate response to conservative care including NSAIDS (unless there are contraindication such as concurrent blood thinners), multiple oral or topical pain medications, and home exercise program/physical therapy.? Patient has completed >6 weeks of guided home exercise program and/or formal physical therapy program without relief of their symptoms.? I have reviewed the imaging of the lumbar and no red flags were identified.? The imaging reveals radiographic findings consistent with lumbar spondylosis We discussed the risks and benefits of the procedure with the patient, and we are NOT planning on using sedation as outlined in the guidelines from Medicare unless there is a documented reason that sedation would be strongly recommended.?? ?The procedure will be completed with fluoroscopic guidance.? (2) Lumbar stenosis with neurogenic claudication: Plan proceed with right L4-5 L5-S1 facet medial branch block #2 working towards thermal RFA. risks vs benefits discussed continue HEP as tolerated f/u 1 week after procedure
== END 2023-12-04 08:40 | disposition home or self-care (01) ==
LOC: PM 08:39
PROVIDERS: PCP Family Medicine; Visit Provider Nurse Practitioner
DX: M47.816 Spondylosis without myelopathy or radiculopathy, lumbar region (principal); M48.062 Spinal stenosis, lumbar region with neurogenic claudication
CPT/HCPCS: G0463

== ENCOUNTER 2023-12-10 09:40 | Day surgery (SDC) | payer MEDICARE, OTHER, SELFPAY ==
[2023-12-10 10:18] VITALS: BP 133/91; PULSE 62; RESP 16; TEMP 36.6; O2SAT 97
[2023-12-10 10:58] VITALS: BP 124/82; PULSE 57; RESP 18; O2SAT 97
[2023-12-10 11:00] VITALS: BP 125/83; PULSE 61; RESP 18; O2SAT 96
[2023-12-10] MEDS: BUPIVACAINE HCL 0.25% PF 25 MG/10 ML VIAL 3 ML INJ (11:02)
--- NOTE | 2023-12-10 11:07 | W.PM.PROCNOT ---
Date of procedure: 12/10/23 Pre-op diagnosis: Lumbar spondylosis Post-op diagnosis: same as pre-op Procedure: Right Lumbar 4/5, 5/sacral 1 medial branch block Under fluoroscopic guidance Solution injected: 2millilitersMarcaine 0.25% Anesthesia :none Immediate complications none Time out process compliant After informed consent obtained from the patient placed in the Prone proposition . area was prepped and draped in a sterile fashion using Cloraprep .25 gauge spinal needle inserted over each of the above mentioned target areas . [place] were directed towards the target under fluoroscopic guidance . after encountering each of the targets , no indication of intravascular intraneuronal or intrathecal needle tip placement. Then 0 .5 to 1 Milliliter was injected at each level. [place] removed postoperatively. patient transferred to recovery in stable condition to be discharged home after meeting criteria Anesthesia: Local Surgeon: Alexis Cohen Condition: stable
== END 2023-12-10 11:08 | disposition home or self-care (01) ==
PROVIDERS: PCP Family Medicine; Visit Provider Anesthesiology Pain Medicine
DX: M47.816 Spondylosis without myelopathy or radiculopathy, lumbar region (principal)
CPT/HCPCS: 64493; 64494; J0665

== ENCOUNTER 2023-12-18 09:23 | Outpatient (OUT) | payer MEDICARE, OTHER, SELFPAY ==
--- NOTE | 2023-12-18 09:44 | P.CN_ITS ---
Consult Note: HPI Data of Consult Patient: known to practice within the last 3 years Consult date: 11/21/23 Requesting Physician: Ml Antony NP Primary Care Provider: LORENZO OLSON Consult Narrative Reason for consult: f/u Narrative: Eron Damon a pleasant 73 year old male presents for evaluation and manage ment of chronic low back pain unresponsive to PT/HEP, conservative medications. Has completed bilateral L4/5 L5/S1 facet medial branch block x2 with 80% pain relief and functional improvement immediately after and hours following . Today pain in left low back 3/10, increasing to 7/10, pinching/nerve pain . Pain increased with standing, walking, housework, lifting legs, stairs, activity. Patient would like to discuss proceeding with thermal RFAs. cc:: CC: Ml Antony NP Review of Systems ROS Status of ROS 10 or more systems reviewed and unremark able except as noted in history and below Musculoskeletal Reports: back pain PFSH PFSH Medical History (Updated 11/21/23 @ 12:50 by Ml Antony NP) Fusion of spine, cervical region ?M43.22 - Fusion of spine, cervical region (ICD-10) Rectal cancer ?C20 - Malignant neoplasm of rectum (ICD-10) Rheumatoid arthritis ?M06.9 - Rheumatoid arthritis, unspecified (ICD-10) Pulmonary emboli ?I26.99 - Other pulmonary embolism without acute cor pulmonale (ICD-10) Surgical History H/O foot surgery ?Z98.890 - Other specified postprocedural states (ICD-10) Meds Home Medications and Allergies Home Medications Medication Instructions Recorded Confirmed Type ascorbic acid (vitamin C) 500 mg 500 mg PO DAILY 10/30/23 12/10/23 History chewable tablet (Acerola C) calcium 600 mg capsule mg PO 10/30/23 History carvedilol 6.25 mg tablet 6.25 mg PO BID 10/30/23 12/10/23 History finasteride 5 mg tablet 5 mg PO DAILY 10/30/23 12/10/23 History glucosamine sulfate 500 mg tablet 500 mg PO DAILY 10/30/23 12/10/23 History (Glucosamine) prednisone 5 mg tablet 5 mg PO DAILY 10/30/23 12/10/23 History rivaroxaban 10 mg tablet (Xarelto) 10 mg PO DAILY 10/30/23 12/10/23 History tamsulosin 0.4 mg capsule 0.4 mg PO DAILY 10/30/23 12/10/23 History valsartan 80 mg tablet 80 mg PO DAILY 10/30/23 12/10/23 History Allergies Allergy/AdvReac Type Severity Reaction Status Date / Time No Known Drug Allergies Allergy Verified 11/26/23 07:15 Exam Constitutional Documenting provider has reviewed patient's vital signs: yes Common normals: no apparent distress, oriented x3, healthy appearing, alert and well nourished General appearance: cooperative HENWI Common normals: normocephalic, hearing grossly normal bilaterally and moist oral mucous membranes Head and scalp: normocephalic Eye Common normals: PERRL Pupil: PERRL Neck & C-Spine Common normals: full ROM General: normal visual inspection Chest Common normals: inspection of chest normal Respiratory Common normals: normal respiratory effort, no retractions and no use of accessory muscles Back & Pelvis Lumbar spine/lower back: ROM limited, pain with ROM and straight leg raise negative bilaterally Sacroiliac joints: SI joints normal Other: axial low back pain positive facet loading negative radiculopathy Extremity Common normals: normal to inspection and full ROM Neuro Common normals: oriented x3, CN's II-XII intact bilaterally, moves all extremities, no focal motor deficits, no sensory deficits noted, deep tendon reflexes 2+ bilaterally and gait normal Sensorium/orientation: alert Motor exam: strength 5/5 throughout and no movement abnormalities noted Psych Common normals: mental status grossly normal, thought process normal, cooperative, affect normal, speech normal and activity/motor behavior normal Speech: normal speech Thought process: normal thought process Results Additional Findings Additional findings: I have checked an OARRS report on this patient today and there are no aberrancies noted in the prescribing history.?? A drug screen was completed and reviewed within the last year, and if there has not been a drug screen completed we ordered one today to monitor higher risk, state monitored pain medication use. As part of providing excellent, safe, comprehensive care, the following was completed at our patient's visit: 1. A medication reconciliation and review to ensure accurate knowledge of current/active medications, including asking our patients to inform us about any [id number]-[id number] medications or herbal remedies/nutritional supplements/alternative remedies. 2. A review to specifically ensure our patients have had annual screening for: elevated body mass index (BMI), tobacco use, screening for depression, and screening for unhealthy alcohol use. When screening is concerning, patients are provided with education and the specific recommendation to discuss the concerning health issue and treatment options with their primary care provider. Assessment and Plan Assessment and Plan (1) Lumbar spondylosis: Assessment and Plan: The patient has had over 3 months of moderate to severe low back pain with functional impairment and inadequate response to conservative care including NSAIDS (unless there are contraindication such as concurrent blood thinners), multiple oral or topical pain medications, and home exercise program/physical therapy.? Patient has completed >6 weeks of guided home exercise program and/or formal physical therapy program without relief of their symptoms.? I have reviewed the imaging of the lumbar and no red flags were identified.? The imaging reveals radiographic findings consistent with lumbar spondylosis We discussed the risks and benefits of the procedure with the patient, and we are NOT planning on using sedation as outlined in the guidelines from Medicare unless there is a documented reason that sedation would be strongly recommended.?? ?The procedure will be completed with fluoroscopic guidance.? (2) Lumbar stenosis with neurogenic claudication: Plan proceed with bilateral L4-5 L5-S1 facet medial branch thermal RFA under fluoroscopy with Dr Mazariegos. risks vs benefits discussed. continue HEP as tolerated continue current medications as needed f/u 1 month after procedure
== END 2023-12-18 09:24 | disposition home or self-care (01) ==
LOC: PM 09:23
PROVIDERS: PCP Family Medicine; Visit Provider Nurse Practitioner
DX: M47.816 Spondylosis without myelopathy or radiculopathy, lumbar region (principal); M48.062 Spinal stenosis, lumbar region with neurogenic claudication
CPT/HCPCS: G0463

== ENCOUNTER 2023-12-30 06:48 | Day surgery (SDC) | payer MEDICARE, OTHER, SELFPAY ==
[2023-12-30 06:53] VITALS: BP 119/77; PULSE 65; RESP 16; TEMP 36.4; O2SAT 97
--- OUTSIDE RECORDS SUMMARY | 2023-12-30 06:53 | XMS_ITS | CCD ---
Author Name Unknown Address [address] [place] [address] Organization [facility] Care Team Providers Care Hydrotherapist Name Role Phone SONAM ZAMBRANO Consulting Unavailable PAWANANDER, LINK Attending Unavailable PAWANANDER, LINK Admitting Unavailable TOMAS, DR LORENZO Dailey [...] Care Provider MD Minerva Anderson Attending Provider [phone] Minerva Anderson MD Unavailable [phone] Dania Vásquez MD Unavailable [phone] Wild PICCOLO MECHANIC.BEADING INSTALLER, Andree Unavailable [phone] Gerald VAUGHAN, Denisha Unavailable LORENZO OLSON Primary Care Unavailable HANG MAIER Attending Unavailable TOMAS LORENZO Dailey Primary Care Unavailable HANG MAIER Attending Unavailable HANG MAIER Admitting Unavailable [place] VAUGHAN, Chelsie Dahl Unavailable Unavailable Valencia Torres Unavailable Tomas, Lorenzo Dailey Primary Care Provider JM Torres Attending Provider DEBORAH NORMAN Referring Unavailable TOMAS, LORENZO Dailey Primary Care Unavailable Tomas HERNANDEZ, Lorenzo Dailey Primary Care Provider Gerald VAUGHAN, Denisha Unavailable [place] VAUGHAN, Chelsie Dahl Unavailable Unavailable TOMAS Lorenzo Dailey Primary Care Physician [phone] Tomas, Lorenzo Dailey Primary Care Provider JM Torres Attending Provider Tomas Lorenzo Dailey Primary Care Unavailable Torres, Valencia Admitting Unavailable Valencia Torres Attending Unavailable Tomas, Lorenzo Dailey Primary Care Unavailable Minerva Anderson Admitting Unavailable Minerva Anderson Attending Unavailable Darin, Valencia Admitting Unavailable Valencia Torres Attending Unavailable Tomas, Lorenzo Dailey Primary Care Unavailable Torres, Valecnia Admitting Unavailable Valencia Torres Attending Unavailable Tomas, Lorenzo Dailey Primary Care Unavailable CHELISE FERNANDO Attending Unavailable NONE, XXXX Referring Unavailable Santiago Kong Admitting Unavaila Santiago Flower Attending Unavaila Corey Bob Admitting Unavailable Corey MCKEE Attending Unavailable Corey MCKEE Referring Unavailable STANDania, ARACELY Cyndee L Referring Unavailable Santiago Kong Consulting Unavaila ble STANDania, BEADING INSTALLER Cyndee L Admitting Unavailable STANDania, BEADING INSTALLER Cyndee L Attending Unavailable Santiago Kong Consulting [...] Referring Unavailable NONE, XXXX Referring Unavailable LAURA, BEADING INSTALLER Cyndee L Admitting Unavailable LAURA, ARACELY Cotter L Attending Unavailable TOMAS, [facility] Primary Care Unavailable SYBIL PROCTOR Attending Unavailable EMERSON, DEBORAH Referring Unavailable JACKY TAYLOR Attending Unavailable TOMAS, [facility] Primary Care Unavailable EMERSON, DEBORAH Referring Unavailable TOMAS, [facility] Primary Care Unavailable EMERSON, DEBORAH Referring Unavailable MARK VALLADARES Attending Unavailable TOMAS, [facility] Primary Care Unavailable DIONNA, MARK Admitting Unavailable TOMAS, LORENZO S Primary Care Unavailable EMERSON, DEBORAH Referring Unavailable DEBORAH GOMEZ Attending Unavailable MINERVA ANDERSON Referring Unavailable TOMAS, [facility] Primary Care Unavailable MINERVA ANDERSON Referring Unavailable MINERVA ANDERSON Attending Unavailable TOMAS, [facility] Primary Care Unavailable MINERVA ANDERSON Referring Unavailable TOMAS, [facility] Primary Care Unavailable MINERVA ANDERSON Referring Unavailable TOMAS, [facility] Primary Care Unavailable ANDREE HOLLIS Attending Unavailable TOMAS, [facility] Primary Care Unavailable MINERVA ANDERSON Referring Unavailable MINERVA ANDERSON Referring Unavailable TOMAS, [facility] Primary Care Unavailable MINERVA ANDERSON Referring Unavailable TOMAS, [facility] Primary Care Unavailable MINERVA ANDERSON Referring Unavailable TOMAS, [facility] Primary Care Unavailable MINERVA ANDERSON Referring Unavailable ANDREE HOLLIS Attending Unavailable TOMAS, [facility] Primary Care Unavailable MINERVA ANDERSON Referring Unavailable DEBORAH NORMAN Attending Unavailable TOMAS, [facility] Primary Care Unavailable TOMAS, [facility] Primary Care Unavailable Dania VÁSQUEZ Attending Unavailable TOMAS, [facility] Primary Care Unavailable MINERVA ANDERSON Referring Unavailable TOMAS, [facility] Primary Care Unavailable MINERVA ANDERSON Referring Unavailable TOMAS, [facility] Primary Care Unavailable MINERVA ANDERSON Referring Unavailable MINERVA ANDERSON Attending Unavailable TOMAS, [facility] Primary Care Unavailable MINERVA ANDERSON Referring Unavailable TOMAS, [facility] Primary Care Unavailable MINERVA ANDERSON Referring Unavailable TOMAS, [facility] Primary Care Unavailable MINERVA ANDERSON Referring Unavailable TOMAS, [facility] Primary Care Unavailable EMERSON, DEBORAH Referring Unavailable TOMAS, [facility] Primary Care Unavailable EMERSON, DEBORAH Referring Unavailable TOMAS, [facility] Primary Care Unavailable MINERVA ANDERSON Referring Unavailable MINERVA ANDERSON Attending Unavailable TOMAS, LORENZO S Primary Care Unavailable TOMAS, LORENZO S Primary Care Unavailable TOMAS, LORENZO S Primary Care Unavailable KARI KEY Referring Unavailable MINERVA ANDERSON Referring Unavailable TOMAS, LORENZO S Primary Care Unavailable MERT KRUEGER Attending Unavailable TOMAS, LORENZO S Primary Care Unavailable ANDREE HOLLIS Referring Unavailable MINERVA ANDERSON Referring Unavailable TOMAS, LORENZO S Primary Care Unavailable MINERVA ANDERSON Referring Unavailable HOA GURROLA Attending Unavailabl e TOMAS, LORENZO S Primary Care Unavailable MINERVA ANDERSON Referring Unavailable TOMAS, LORENZO S Primary Care Unavailable TOMAS, LORENZO S Primary Care Unavailable KARI KEY Referring Unavailable MINERVA ANDERSON Attending Unavailable TOMAS, LORENZO S Primary Care Unavailable TOMAS, LORENZO S Primary Care Unavailable HOA GURROLA Attending Unavailabl e TOMAS, LORENZO S Primary Care Unavailable DEBORAH NORMAN Referring Unavailable TOMAS, LORENZO S Primary Care Unavailable MINERVA ANDERSON Referring Unavailable TOMAS, LORENZO S Primary Care Unavailable MINERVA ANDERSON Referring Unavailable MINERVA ANDERSON Attending Unavailable TOMAS, LORENZO S Primary Care Unavailable MINERVA ANDERSON Referring Unavailable MINERVA ANDERSON Attending Unavailable TOMAS, LORENZO S Primary Care Unavailable MINERVA ANDERSON Referring Unavailable TOMAS, LORENZO S Primary Care Unavailable MINERVA ANDERSON Referring Unavailable TOMAS, LORENZO S Primary Care Unavailable MINERVA ANDERSON Referring Unavailable TOMAS, LORENZO S Primary Care Unavailable MINERVA ANDERSON Referring Unavailable TOMAS, LORENZO S Primary Care Unavailable MINERVA ANDERSON Attending Unavailable MINERVA ANDERSON Referring Unavailable TOMAS, LORENZO S Primary Care Unavailable MINERVA ANDERSON Referring Unavailable TOMAS, LORENZO S Primary Care Unavailable MINERVA ANDERSON Referring Unavailable MINERVA ANDERSON Attending Unavailable TOMAS, LORENZO S Primary Care Unavailable TOMAS, LORENZO S Primary Care Unavailable MINERVA ANDERSON Referring Unavailable TOMAS, LORENZO S Primary Care Unavailable MINERVA ANDERSON Referring Unavailable TOMAS, LORENZO S Primary Care Unavailable MINERVA ANDERSON Attending Unavailable TOMAS, [facility] Primary Care Unavailable TOMAS, LORENZO S Primary Care Unavailable MINERVA ANDERSON Referring Unavailable TOMAS, LORENZO S Primary Care Unavailable MINERVA ANDERSON Referring Unavailable TOMAS, LORENZO S Primary Care Unavailable ANDREE HOLLIS Referring Unavailable TOMAS, [facility] Primary Care Unavailable Allergies Allergy Classification Reported Allergen(s) Allergy Type Date of Onset Reaction(s) Facility (1 source) Penicillin; 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: [penicillin] Drug Allergy [facility] Repository Medications Current Medications Medication Drug Class(es) Dates Sig (Normalized) Sig (Original) acetaminophen 325 mg / HYDROcodone bitartrate 5 mg oral tablet (20 sources) Opioid Agonist Start: 04-02-2023 [place] 325 mg-5 mg oral tablet 1 tab(s), Oral, q6hr as needed for pain, 10 tab(s), Refill(s) 0, [id number], 188, cm, 04/02/23 10:50:00 EDT, Height/Length Dosing, 100, kg, 04/02/23 10:50:00 EDT, Weight Dosing Start Date: 04/02/23 Status: Ordered Start: 03-18-2023 [place] 325 mg-5 mg oral tablet 1 tab(s), Oral, q6hr as needed for pain, 10 tab(s), Refill(s) 0, [facility] #[id number], 188, cm, 03/18/23 10:50:00 EDT, Height/Length Dosing, [...] Ordered Start: 07-16-2023 take 1 capsule by [facility] every twenty-four hours Gabapentin 100 MG 1 capsule Orally Once a day for 30 day(s) Jun, Active Start: 06-20-2023 End: 07-20-2023 take 1 capsule by mouth once daily at bedtime gabapentin (NEURONTIN) 300 mg capsule Take 1 capsule by mouth daily at bedtime for 30 days. 30 capsule 0 06/20/2023 Active Comment on above: Take 1 capsule by [facility] daily at bedtime for 30 days. glucosamine [...] dissolve in water before taking, [facility], 188, cm, 01/02/22 10:27:00 EDT, Height/Length Dosing, [...] as needed for nausea/vomiting. polyethylene glycol 3350 80002 mg powder for oral solution (7 sources) Osmotic Laxative Start: MiraLax oral powder for reconstitution 17 gram, Oral, Daily, 527 gram, Refill(s) 0, dissolve in water before taking, [facility], 188, cm, 01/02/22 10:27:00 EDT, Height/Length Dosing, 112, kg, 01/02/22 10:27:00 EDT, Weight Dosing Start Date: 01/02/22 Status: Ordered potassium citrate 10 meq extended release oral tablet (13 sources) Start: End: take 1 tablet by mouth twice daily potassium CITRATE 10 mEq ER Tab 10 mEq, 1 tab(s), Oral, BID, 180 tab(s), Refill(s) 3, [facility], 188, cm, 09/28/21 13:33:00 EST, Height/Length Dosing, 112.4, kg, 09/28/21 13:33:00 EST, Weight Dosing Start Date: 09/28/21 Status: Ordered Start: 09-28-2021 take 1 tablet by [facility] twice daily potassium CITRATE 10 mEq ER Tab 10 mEq, 1 tab(s), Oral, BID, 180 tab(s), Refill(s) 3, [facility], 188, cm, 09/28/21 13:33:00 [...] days., # 45 tab(s), Refills(s) 0, Pharmacy: [facility] #[id number], 188, cm, 04/02/23 10:50:00 EDT, Height/Length Dosing, 1... Start Date: 04/02/23 Status: Ordered Start: 09-28-2022 take 5 tablets by mo ut once daily, then take 4 tablets by [...] days., # 45 tab(s), Refills(s) 0, [facility]acy: [facility] #[id number], 187.6, cm, 08/20/22 7:01:00 EDT, [...] # 42 tab(s), Refills(s) 0, Pharmacy: [facility], 189, cm, 04/03/22 10:57:00 EDT, Height/Length Dosing, 110, k... Start Date: 04/05/22 Status: Ordered Start: 01-02-2022 End: 04-02-2022 take 1 tablet by mouth once daily predniSONE 5 mg Tab 5 mg = 1 tab(s), Oral, Daily, X 30 day(s), # 30 tab(s), Refills(s) 2, [facility], 188, cm, 01/02/22 10:27:00 EDT, Height/Length Dosing, 112, kg, 01/02/22 10:27:00 EDT, Weight Dosing Start Date: 01/02/22 Stop Date: 04/02/22 Status: Ordered Comment on above: 5 mg. Take 5 mg by mouth o nce daily. prochlorperazine 10 mg oral tablet (20 sources) Phenothiazine Start: End: 3 prochlorperazine 10 mg Tab Refills(s) [...] activity, # 30 tab(s), Refills(s) 2, Pharmacy: [id number], 188, cm, 01/02/22 10:27:00 [...] # 15 tab(s), Refills(s) 6, Pharmacy: [facility][id number], 188, cm, 10/24/22 10:33:00 EST, Height/Length Dosing, [...] Status: Ordered take 1 capsule by mo [facility] every twenty-four hours Tamsulosin HCl 0.4 [...] BID, # 60 tab(s), Refills(s) 11, [facility], 187, cm, 06/20/21 9:10:00 EDT, Height/Length Dosing, 109.2, kg, 06/20/21 9:10:00 EDT, Weight Dosing Start Date: 06/21/21 Status: Ordered Start: 07-08-2018 End: 10-02-2022 ELIQUIS 5 mg tab(s) Start: 07-08-2018 take 2 tablets by mo [facility] twice daily, then take 1 tablet by mouth twice daily ELIQUIS 5 mg tab(s) take 2 tablets by mouth twice a day for 6 days then 1 tablet twice a day 0 07/08/2018 Active Comment on above: take 2 tablets by mo [facility] twice a day for 6 days then [...] Comment on above: Take 1 tablet by [facility] once daily. capecitabine 500 mg oral tablet [...] procedure, # 2 tab(s), Refills(s) 0, [id number], 188, cm, 05/07/23 13:45:00 EDT, Height/Length Dosing, [...] day(s), # 28 supp, Refills(s) 0, [id number], 189, cm, 08/06/22 13:04:00 EDT, Height/Length Dosing, [...] Daily, # 90 tab(s), Refills(s) 3, Pharmacy: [facility], 187, cm, 03/09/21 13:13:00 EDT, [...] [Malignant neoplasm of rectum] Onset: 2 Chronic Cardiac dysrhythmias (1 source) Ventricular premature complex; [...] current use of drug therapy; 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: [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] Episodic Other aftercare (4 sources) History of malignant neoplasm of rectum; 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: [Encounter for follow-up examination after completed treatment for malignant neoplasm] 05-03-2023 Episodic Other bone disease and musculoskeletal deformities [...] Classification Problem Date Documented Da te Episodic/Chronic Cancer of rectum and anus (1 source) Personal history of other malignant neoplasm of rectum, rectosigmoid junction, and anus; 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: [Encounter for follow-up surveillance of rectal cancer] Onset: 07-09-2023 Episodic Complication of device; implant or graft (5 sources) Pain due to internal orthopedic prosthetic devices, implants and grafts, initial encounter; 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: [PAIN INTRL ORTHO PROS DEV GFT INIT] Onset: 03-31-2021 Episodic Gastrointestinal hemorrhage (12 sources) Rectal hemorrhage; 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: [Hemorrhage of anus and rectum] Onset: 02-04-2023 08-19-2022 Episodic Other aftercare (1 source) 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; 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: [HEALTH COACH CURRNT USE ANTICOAGULANTS] Onset: 04-05-2021 Episodic Other aftercare (1 source) 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; 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: [OTH HALF-WAY CURRENT DRUG THERAPY] Onset: 04-05-2021 Episodic Other aftercare (1 source) Encounter for follow-up examination after completed treatment for malignant neoplasm; 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: [Encounter for follow-up surveillance of rectal cancer] Onset: 07-09-2023 Episodic Other connective tissue disease (1 source) Pain in right foot; 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: [PAIN IN RIGHT FOOT] Onset: 02-09-2021 Episodic Other connective tissue disease (1 source) Pain in left foot; 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: [PAIN IN LEFT FOOT] Onset: 02-09-2021 Episodic Other non-traumatic joint disorders (4 sources) [...] Test Name Value Interpretation Reference Range Facility CNPNon 12-23-2023 CNPN Normal [facility] CBC W Auto Differential pane l (Bld)on 12-20-2023 Basophils (Bld) [#/Vol] 0.04 10*3/uL Normal <0.11 [facility] Comment on above: Order Comment: Speci men Type: BLOOD SPECIMENOrdering Facility: [facility] Address: [address] [place] [address] Performed By: #### 5 7021-8 ####[facility] [id number] [place] [address] Basophils/100 WBC (Bld) 0.4 % Normal [facility] Comment on above: Order Comment: Speci men Type: BLOOD SPECIMENOrdering Facility: [facility] Address: [address] [place] [address] Performed By: #### 5 7021-8 ####[facility] [id number] [place] [address] Differential cell count method Nom (Bld) Auto Normal [facility] Comment on above: Order Comment: Speci men Type: BLOOD SPECIMENOrdering Facility: [facility] Address: [address] [place] [address] Performed By: #### 5 7021-8 ####[facility] [id number] [place] [address] Eosinophils (Bld) [#/Vol] 0.04 10*3/uL Normal <0.46 [facility] Comment on above: Order Comment: Speci men Type: BLOOD SPECIMENOrdering Facility: [facility] Address: [address] [place] [address] Performed By: #### 5 7021-8 ####[facility] [id number] [place] [address] Eosinophils/100 WBC (Bld) 0.4 % Normal [facility] Comment on above: Order Comment: Speci men Type: BLOOD SPECIMENOrdering Facility: [facility] Address: [address] [place] [address] Performed By: #### 5 7021-8 ####[facility] [id number] [place] [address] Erythrocyte distribution width (RBC) [Ratio] 15.4 % High 11.5-15.0 [facility] Comment on above: Order Comment: Speci men Type: BLOOD SPECIMENOrdering Facility: [facility] Address: [address] [place] [address] Performed By: #### 5 7021-8 ####[facility] [id number] [place] [address] Hematocrit (Bld) [Volume fraction] 44.3 % Normal 39.0-51.0 [facility] Comment on above: Order Comment: Speci men Type: BLOOD SPECIMENOrdering Facility: [facility] Address: [address] [place] [address] Performed By: #### 5 7021-8 ####[facility] [id number] [place] [address] Hemoglobin (Bld) [Mass/Vol] 14.5 g/dL Normal 13.0-17.0 [facility] Comment on above: Order Comment: Speci men Type: BLOOD SPECIMENOrdering Facility: [facility] Address: [address] [place] [address] Performed By: #### 5 7021-8 ####[facility] [id number] [place] [address] Immature granulocytes (Bld) [#/Vol] 0.07 10*3/uL Normal <0.10 [facility] Comment on above: Order Comment: Speci men Type: BLOOD SPECIMENOrdering Facility: [facility] Address: [address] [place] [address] Performed By: #### 5 7021-8 ####[facility] [id number] [place] [address] Immature granulocytes/100 WBC (Bld) 0.8 % Normal [facility] Comment on above: Order Comment: Speci men Type: BLOOD SPECIMENOrdering Facility: [facility] Address: [address] [place] [address] Performed By: #### 5 7021-8 ####[facility] [id number] [place] [address] Lymphocytes (Bld) [#/Vol] 1.04 10*3/uL Normal 1.00-4.00 [facility] Comment on above: Order Comment: Speci men Type: BLOOD SPECIMENOrdering Facility: [facility] Address: [address] [place] [address] Performed By: #### 5 7021-8 ####[facility] [id number] [place] [address] Lymphocytes/100 WBC (Bld) 11.6 % Normal [facility] Comment on above: Order Comment: Speci men Type: BLOOD SPECIMENOrdering Facility: [facility] Address: [address] [place] [address] Performed By: #### 5 7021-8 ####[facility] [id number] [place] [address] MCH (RBC) [Entitic mass] 31.0 pg Normal 26.0-34.0 [facility] Comment on above: Order Comment: Speci men Type: BLOOD SPECIMENOrdering Facility: [facility] Address: [address] [place] [address] Performed By: #### 5 7021-8 ####[facility] [id number] [place] [address] MCHC (RBC) [Mass/Vol] 32.7 g/dL Normal 30.5-36.0 [facility] Comment on above: Order Comment: Speci men Type: BLOOD SPECIMENOrdering Facility: [facility] Address: [address] [place] [address] Performed By: #### 5 7021-8 ####[facility] [id number] [place] [address] MCV (RBC) [Entitic vol] 94.9 fL Normal 80.0-100.0 [facility] Comment on above: Order Comment: Speci men Type: BLOOD SPECIMENOrdering Facility: [facility] Address: [address] [place] [address] Performed By: #### 5 7021-8 ####[facility] [id number] [place] [address] Monocytes (Bld) [#/Vol] 0.76 10*3/uL Normal <0.87 [facility] Comment on above: Order Comment: Speci men Type: BLOOD SPECIMENOrdering Facility: [facility] Address: [address] [place] [address] Performed By: #### 5 7021-8 ####[facility] [id number] [place] [address] Monocytes/100 WBC (Bld) 8.5 % Normal [facility] Comment on above: Order Comment: Speci men Type: BLOOD SPECIMENOrdering Facility: [facility] Address: [address] [place] [address] Performed By: #### 5 7021-8 ####[facility] [id number] [place] [address] Neutrophils (Bld) [#/Vol] 7.03 10*3/uL Normal 1.45-7.50 [facility] Comment on above: Order Comment: Speci men Type: BLOOD SPECIMENOrdering Facility: [facility] Address: [address] [place] [address] Performed By: #### 5 7021-8 ####[facility] [id number] [place] [address] Neutrophils/100 WBC (Bld) 78.3 % Normal [facility] Comment on above: Order Comment: Speci men Type: BLOOD SPECIMENOrdering Facility: [facility] Address: [address] [place] [address] Performed By: #### 5 7021-8 ####[facility] [id number] [place] [address] Nucleated RBC (Bld) [#/Vol] 10*3/uL Normal <0.01 [facility] Comment on above: Order Comment: Speci men Type: BLOOD SPECIMENOrdering Facility: [facility] Address: [address] [place] [address] Performed By: #### 5 7021-8 ####[facility] [id number] [place] [address] Nucleated RBC/100 WBC (Bld) [Ratio] 0.0 /100 WBC Normal [facility] Comment on above: Order Comment: Speci men Type: BLOOD SPECIMENOrdering Facility: [facility] Address: [address] [place] [address] Performed By: #### 5 7021-8 ####[facility] [id number] [place] [address] Platelet mean volume (Bld) [Entitic vol] 10.1 fL Normal 9.0-12.7 [facility] Comment on above: Order Comment: Speci men Type: BLOOD SPECIMENOrdering Facility: [facility] Address: [address] [place] [address] Performed By: #### 5 7021-8 ####[facility] [id number] [place] [address] Platelets (Bld) [#/Vol] 214 10*3/uL Normal 150-400 [facility] Comment on above: Order Comment: Speci men Type: BLOOD SPECIMENOrdering Facility: [facility] Address: [address] [place] [address] Performed By: #### 5 7021-8 ####[facility] [id number] [place] [address] RBC (Bld) [#/Vol] 4.67 10*6/uL Normal 4.20-6.00 [facility] Comment on above: Order Comment: Speci men Type: BLOOD SPECIMENOrdering Facility: [facility] Address: [address] [place] [address] Performed By: #### 5 7021-8 ####[facility] [id number] [place] [address] WBC (Bld) [#/Vol] 8.98 10*3/uL Normal 3.70-11.00 [facility] Comment on above: Order Comment: Speci men Type: BLOOD SPECIMENOrdering Facility: [facility] Address: [address] [place] [address] Performed By: #### 5 7021-8 ####[facility] [id number] [place] [address] CEA SerPl-mCncon 12-20-2023 Carcinoembryonic Ag [Mass/Vol] 1.9 ng/mL Normal <=2.9 [facility] Comment on above: Order Comment: Speci men Type: BLOOD SPECIMENOrdering Facility: [facility] Address: [address] [place] [address] Result Comment: Carc inoembryonic antigen test is used as an aid in monitoring response to treatment or recurrence in patients with established colorectal, breast, lung, prostatic, pancreatic, and ovarian carcinomas. Clinical correlation is required.The Carcinoembryonic antigen test was performed using the [employer] DXI paramagnetic particle chemiluminescent immunoassay method. Results obtained with different assay methods or kits cannot be used interchangeably. Performed By: #### 2 039-6 ####[facility] LABCLIA [id number] V[place]ESSA [id number], [place] [address] [place] [address] ABD/PEL W IVCONon 024 CT ABD/PEL W IVCON Normal [facility] CT CHEST W IVCONon 4 CT CHEST W IVCON Normal [facility] Comprehensive metabolic 2000 panelon 12-20-2023 Albumin [Mass/Vol] 4.0 g/dL Normal 3.9-4.9 [facility] Comment on above: Order Comment: Speci men Type: BLOOD SPECIMENOrdering Facility: [facility] Address: [address] [place] [address] Performed By: #### 2 4323-8 ####[facility] [id number] [place] [address] ALP [Catalytic activity/Vol] 102 U/L Normal 38-113 [facility] Comment on above: Order Comment: Speci men Type: BLOOD SPECIMENOrdering Facility: [facility] Address: [address] [place] [address] Performed By: #### 2 4323-8 ####[facility] [id number] [place] [address] ALT [Catalytic activity/Vol] 11 U/L Normal 10-54 [facility] Comment on above: Order Comment: Speci men Type: BLOOD SPECIMENOrdering Facility: [facility] Address: [address] [place] [address] Performed By: #### 2 4323-8 ####[facility] [id number] [place] [address] Anion gap [Moles/Vol] 9 mmol/L Normal 9-18 [facility] Comment on above: Order Comment: Speci men Type: BLOOD SPECIMENOrdering Facility: [facility] Address: [address] [place] [address] Performed By: #### 2 4323-8 ####[facility] [id number] [place] [address] AST [Catalytic activity/Vol] 12 U/L Low 14-40 [facility] Comment on above: Order Comment: Speci men Type: BLOOD SPECIMENOrdering Facility: [facility] Address: [address] [place] [address] Performed By: #### 2 4323-8 ####[facility] [id number] [place] [address] Bilirubin [Mass/Vol] 0.7 mg/dL Normal 0.2-1.3 [facility] Comment on above: Order Comment: Speci men Type: BLOOD SPECIMENOrdering Facility: [facility] Address: [address] [place] [address] Performed By: #### 2 4323-8 ####[facility] [id number] [place] [address] Calcium [Mass/Vol] 9.6 mg/dL Normal 8.5-10.2 [facility] Comment on above: Order Comment: Speci men Type: BLOOD SPECIMENOrdering Facility: [facility] Address: [address] [place] [address] Performed By: #### 2 4323-8 ####[facility] [id number] [place] [address] Chloride [Moles/Vol] 107 mmol/L High 97-105 [facility] Comment on above: Order Comment: Speci men Type: BLOOD SPECIMENOrdering Facility: [facility] Address: [address] [place] [address] Performed By: #### 2 4323-8 ####[facility] [id number] [place] [address] CO2 [Moles/Vol] 27 mmol/L Normal 22-30 [facility] Comment on above: Order Comment: Speci men Type: BLOOD SPECIMENOrdering Facility: [facility] Address: [address] [place] [address] Performed By: #### 2 4323-8 ####[facility] [id number] [place] [address] Creatinine [Mass/Vol] 1.07 mg/dL Normal 0.73-1.22 [facility] Comment on above: Order Comment: Speci men Type: BLOOD SPECIMENOrdering Facility: [facility] Address: [address] [place] [address] Performed By: #### 2 4323-8 ####[facility] [id number] [place] [address] Creatinine and Glomerular filtration rate.predicted panel (S/P/Bld) 74 mL/min/1.73m??? Normal >=60 [facility] Comment on above: Order Comment: Speci men Type: BLOOD SPECIMENOrdering Facility: [facility] Address: [address] [place] [address] Result Comment: Rebekah mated Glomerular Filtration Rate [...] actual GFR. Performed By: #### 2 4323-8 ####[facility] [id number] [place] [address] Glucose [Mass/Vol] 87 mg/dL Normal 74-99 [facility] Comment on above: Order Comment: Speci men Type: BLOOD SPECIMENOrdering Facility: [facility] Address: [address] [place] [address] Result Comment: The [place] [employer] (ADA) provides guidance for cutoff [...] Standards of Medical Care in Diabetes 2016, [place] [employer]. Diabetes Care. 2016.39(Suppl 1). Performed By: #### 2 4323-8 ####[facility] [id number] [place] [address] Potassium [Moles/Vol] 4.4 mmol/L Normal 3.7-5.1 [facility] Comment on above: Order Comment: Speci men Type: BLOOD SPECIMENOrdering Facility: [facility] Address: [address] [place] [address] Performed By: #### 2 4323-8 ####[facility] [id number] [place] [address] Protein [Mass/Vol] 6.5 g/dL Normal 6.3-8.0 [facility] Comment on above: Order Comment: Speci men Type: BLOOD SPECIMENOrdering Facility: [facility] Address: [address] [place] [address] Performed By: #### 2 4323-8 ####[facility] [id number] [place] [address] Sodium [Moles/Vol] 143 mmol/L Normal 136-144 [facility] Comment on above: Order Comment: Speci men Type: BLOOD SPECIMENOrdering Facility: [facility] Address: [address] [place] [address] Performed By: #### 2 4323-8 ####[facility] [id number] [place] [address] Urea nitrogen [Mass/Vol] 19 mg/dL Normal 9-24 [facility] Comment on above: Order Comment: Speci men Type: BLOOD SPECIMENOrdering Facility: [facility] Address: [address] [place] [address] Performed By: #### 2 4323-8 ####[facility] LABIA [id number] [place] [address] ALLIED HEALTHon 12-03-2023 ALLIED HEALTH HNO ID: [id number] Author: BLESSED MUNIZ RT(R) Service: Radiology Author Type: Dub Room Engineer Type: Allied Health Filed: 12/03/2023 14:37 Note Text: Radiology Service Progress Note PATIENT NAME: Mervat [...] PATIENT PRESENTS WITH AN IMPLANTABLE OR ATTACHED MANGLE OPERATOR GARMENTS: No RADIOLOGY DEPARTMENT: MR; Exam(s) Completed: Body: Rectal PERIPHERAL IV DATA: Not applicable SIGNED BY: RT George(R) Adrianne Byrneruma MR Tech December 03, 2023 2:36 PM [facility] MR Pelvis WO contraston 11-21 [facility] MRI RECTUM WO/W IVCONon 11-21 MRI RECTUM WO/W IVCON * * *Final Report* * * DATE OF EXAM: Dec 03 2023 2:52PM [facility] 0754 - MRI RECTUM WO/W IVCON / PROCEDURE REASON: Malignant neoplasm of rectum (HCC) * * * * Physician Interpretation * * * * MRI OF THE PELVIS WITHOUT AND WITH CONTRAST: RECTAL CANCER RESTAGING CLINICAL HISTORY: Rectal Cancer RESTAGING Pretreatment Tumor Staging: T3 N0 Rectal tumor histology: Adenocarcinoma Prior chemotherapy or radiation: Yes Other: N/A COMPARISON: MRI 04/18/2023 and 09/11/2022 TECHNIQUE: Magnet: [employer] scanner. Multiplanar MRI with multiple sequences before and after contrast. Contrast: IV: 20 ml of Dotarem Other: 60mL surgilube RESULT: TREATED PRIMARY TUMOR CHARACTERISTICS (Compare to pre-treatment): DWI (with associated low ADC) ? restricted diffusion and low ADC in tumor or tumor bed: Absent. MRI-T2W: Entirely dark T2 signal/scar. T2 bright mucin (cannot distinguish between cellular and acellular mucin): Absent. Description: T2 hypointense fibrosis along the low rectal wall extending to the anal canal from the 11 to 5:00 position (9:18), similar to prior. Distance of the inferior margin of treated tumor to the anal verge: 0 cm (10:24) Distance of the inferior margin to the top of sphincter complex/anorectal junction: 0 cm (10:20) Relationship to anterior peritoneal reflection: Below Craniocaudal length: 4 cm (10:21) Pre-treatment craniocaudal length: 5.8 cm Tumor location: Low rectum (0-5 cm) Maximal wall thickness: 0.5 cm (9:16) Pre-treatment wall thickness: 1.5 cm Invasion of anal sphincter complex: Invades internal sphincter (IAS) only. Anal canal involvement: Upper, mid and distal anal canal. No residual viable tumor. TUMOR [...] nodes: N/A Suspicious extra mesorectal lymph nodes: None. OTHER STRUCTURES/ ORGANS INVOLVED: none OTHER FINDINGS: Colonic diverticula The study was reviewed with Dr Isbell, a member of the rectal cancer multidisciplinary tumor board. IMPRESSION: DENSE SCAR INVOLVING THE LOW RECTAL WALL / ANAL CANAL, UNCHANGED FROM PRIOR. NO RESIDUAL VIABLE TUMOR. NO LYMPHADENOPATHY. Since 04/18/2023, post treatment primary tumor assessment: Complete/near complete response. -Free text summary of relevant findings/interval change. mrTRG: Grade 2 - Good response Suspicious Mesorectal lymph nodes: No. Suspicious Extramesorectal lymph nodes: No. Lead Custodian: SHARON Transcribe Date/Time: Dec 03 2023 3:00P Dictated by : JESUS ROSENTHAL DO This examination was interpreted and the report reviewed and electronically signed by: JAIME RENEE MD on Dec 03 2023 4:44PM EST [id number] Normal [facility] CBC W Auto Differential pane l (Bld)on 11-21-2023 Basophils (Bld) [#/Vol] 0.06 10*3/uL Normal <0.11 [facility] Comment on above: Order Comment: Speci men Type: BLOOD SPECIMENOrdering Facility: [facility] Address: [address] [place] [address] Performed By: #### 5 7021-8 ####[facility] [id number] [place] [address] Basophils/100 WBC (Bld) 0.8 % Normal [facility] Comment on above: Order Comment: Speci men Type: BLOOD SPECIMENOrdering Facility: [facility] Address: [address] [place] [address] Performed By: #### 5 7021-8 ####[facility]CL[facility] [id number] [place] [address] Differential cell count method Nom (Bld) Auto Normal [facility] Comment on above: Order Comment: Speci men Type: BLOOD SPECIMENOrdering Facility: [facility] Address: [address] [place] [address] Performed By: #### 5 7021-8 ####[facility]CL[facility] [id number] [place] [address] Eosinophils (Bld) [#/Vol] 0.16 10*3/uL Normal <0.46 [facility] Comment on above: Order Comment: Speci men Type: BLOOD SPECIMENOrdering Facility: [facility] Address: [address] [place] [address] Performed By: #### 5 7021-8 ####[facility]CL[facility] [id number] [place] [address] Eosinophils/100 WBC (Bld) 2.1 % Normal [facility] Comment on above: Order Comment: Speci men Type: BLOOD SPECIMENOrdering Facility: [facility] Address: [address] [place] [address] Performed By: #### 5 7021-8 ####[facility]CL[facility] [id number] [place] [address] Erythrocyte distribution width (RBC) [Ratio] 15.8 % High 11.5-15.0 [facility] Comment on above: Order Comment: Speci men Type: BLOOD SPECIMENOrdering Facility: [facility] Address: [address] [place] [address] Performed By: #### 5 7021-8 ####[facility]CL[facility] [id number] [place] [address] Hematocrit (Bld) [Volume fraction] 38.2 % Low 39.0-51.0 [facility] Comment on above: Order Comment: Speci men Type: BLOOD SPECIMENOrdering Facility: [facility] Address: [address] [place] [address] Performed By: #### 5 7021-8 ####[facility]CL[facility] [id number] [place] [address] Hemoglobin (Bld) [Mass/Vol] 12.4 g/dL Low 13.0-17.0 [facility] Comment on above: Order Comment: Speci men Type: BLOOD SPECIMENOrdering Facility: [facility] Address: [address] [place] [address] Performed By: #### 5 7021-8 ####[facility]CL[facility] [id number] [place] [address] Immature granulocytes (Bld) [#/Vol] 0.03 10*3/uL Normal <0.10 [facility] Comment on above: Order Comment: Speci men Type: BLOOD SPECIMENOrdering Facility: [facility] Address: [address] [place] [address] Performed By: #### 5 7021-8 ####[facility]CL[facility] [id number] [place] [address] Immature granulocytes/100 WBC (Bld) 0.4 % Normal [facility] Comment on above: Order Comment: Speci men Type: BLOOD SPECIMENOrdering Facility: [facility] Address: [address] [place] [address] Performed By: #### 5 7021-8 ####[facility]CL[facility] [id number] [place] [address] Lymphocytes (Bld) [#/Vol] 0.91 10*3/uL Low 1.00-4.00 [facility] Comment on above: Order Comment: Speci men Type: BLOOD SPECIMENOrdering Facility: [facility] Address: [address] [place] [address] Performed By: #### 5 7021-8 ####[facility]CL[facility] [id number] [place] [address] Lymphocytes/100 WBC (Bld) 11.9 % Normal [facility] Comment on above: Order Comment: Speci men Type: BLOOD SPECIMENOrdering Facility: [facility] Address: [address] [place] [address] Performed By: #### 5 7021-8 ####[facility]CL[facility] [id number] [place] [address] MCH (RBC) [Entitic mass] 31.2 pg Normal 26.0-34.0 [facility] Comment on above: Order Comment: Speci men Type: BLOOD SPECIMENOrdering Facility: [facility] Address: [address] [place] [address] Performed By: #### 5 7021-8 ####[facility]CLIA [id number] [place] [address] MCHC (RBC) [Mass/Vol] 32.5 g/dL Normal 30.5-36.0 [facility] Comment on above: Order Comment: Speci men Type: BLOOD SPECIMENOrdering Facility: [facility] Address: [address] [place] [address] Performed By: #### 5 7021-8 ####[facility]CL[facility] [id number] [place] [address] MCV (RBC) [Entitic vol] 96.0 fL Normal 80.0-100.0 [facility] Comment on above: Order Comment: Speci men Type: BLOOD SPECIMENOrdering Facility: [facility] Address: [address] [place] [address] Performed By: #### 5 7021-8 ####[facility]CLIA [id number] [place] [address] Monocytes (Bld) [#/Vol] 0.74 10*3/uL Normal <0.87 [facility] Comment on above: Order Comment: Speci men Type: BLOOD SPECIMENOrdering Facility: [facility] Address: [address] [place] [address] Performed By: #### 5 7021-8 ####[facility]CL[facility] [id number] [place] [address] Monocytes/100 WBC (Bld) 9.7 % Normal [facility] Comment on above: Order Comment: Speci men Type: BLOOD SPECIMENOrdering Facility: [facility] Address: [address] [place] [address] Performed By: #### 5 7021-8 ####[facility]CL[facility] [id number] [place] [address] Neutrophils (Bld) [#/Vol] 5.73 10*3/uL Normal 1.45-7.50 [facility] Comment on above: Order Comment: Speci men Type: BLOOD SPECIMENOrdering Facility: [facility] Address: [address] [place] [address] Performed By: #### 5 7021-8 ####[facility]CLIA [id number] [place] [address] Neutrophils/100 WBC (Bld) 75.1 % Normal [facility] Comment on above: Order Comment: Speci men Type: BLOOD SPECIMENOrdering Facility: [facility] Address: [address] [place] [address] Performed By: #### 5 7021-8 ####[facility]CL[facility] [id number] [place] [address] Nucleated RBC (Bld) [#/Vol] 10*3/uL Normal <0.01 [facility] Comment on above: Order Comment: Speci men Type: BLOOD SPECIMENOrdering Facility: [facility] Address: [address] [place] [address] Performed By: #### 5 7021-8 ####[facility]CL[facility] [id number] [place] [address] Nucleated RBC/100 WBC (Bld) [Ratio] 0.0 /100 WBC Normal [facility] Comment on above: Order Comment: Speci men Type: BLOOD SPECIMENOrdering Facility: [facility] Address: [address] [place] [address] Performed By: #### 5 7021-8 ####[facility]CL[facility] [id number] [place] [address] Platelet mean volume (Bld) [Entitic vol] 9.9 fL Normal 9.0-12.7 [facility] Comment on above: Order Comment: Speci men Type: BLOOD SPECIMENOrdering Facility: [facility] Address: [address] [place] [address] Performed By: #### 5 7021-8 ####[facility]CLIA [id number] [place] [address] Platelets (Bld) [#/Vol] 182 10*3/uL Normal 150-400 [facility] Comment on above: Order Comment: Speci men Type: BLOOD SPECIMENOrdering Facility: [facility] Address: [address] [place] [address] Performed By: #### 5 7021-8 ####[facility]CL[facility] [id number] [place] [address] RBC (Bld) [#/Vol] 3.98 10*6/uL Low 4.20-6.00 [facility] Comment on above: Order Comment: Speci men Type: BLOOD SPECIMENOrdering Facility: [facility] Address: [address] [place] [address] Performed By: #### 5 7021-8 ####[facility]CL[facility] [id number] [place] [address] WBC (Bld) [#/Vol] 7.63 10*3/uL Normal 3.70-11.00 [facility] Comment on above: Order Comment: Speci men Type: BLOOD SPECIMENOrdering Facility: [facility] Address: [address] [place] [address] Performed By: #### 5 7021-8 ####[facility] LABCLIA [id number] [place] [address] CEA SerPl-ncon 11-21-2023 Carcinoembryonic Ag [Mass/Vol] 1.8 ng/mL Normal <=2.9 [facility] Comment on above: Order Comment: Speci men Type: BLOOD SPECIMENOrdering Facility: [facility] Address: [address] [place] [address] Result Comment: Carc inoembryonic antigen test is used as an aid in monitoring response to treatment or recurrence in patients with established colorectal, breast, lung, prostatic, pancreatic, and ovarian carcinomas. Clinical correlation is required.The Carcinoembryonic antigen test was performed using the [employer] Un[employer] DXI paramagnetic particle chemiluminescent immunoassay method. Results obtained with different assay methods or kits cannot be used interchangeably. Performed By: #### 2 039-6 ####[facility] LABCLIA [id number] KENDRAShawna [facility]ERK [id number] [address] [place] CNOVSPon 11-21-2023 CNOVSP Normal [facility] Comprehensive metabolic 2000 panelon 11-21-2023 Albumin [Mass/Vol] 3.7 g/dL Low 3.9-4.9 [facility] Comment on above: Order Comment: Speci men Type: BLOOD SPECIMENOrdering Facility: [facility] Address: [address] [place] [address] Performed By: #### 2 4323-8 ####[facility]CLIA [id number] [place] [address] ALP [Catalytic activity/Vol] 85 U/L Normal 38-113 [facility] Comment on above: Order Comment: Speci men Type: BLOOD SPECIMENOrdering Facility: [facility] Address: [address] [place] [address] Performed By: #### 2 4323-8 ####[facility]CL[facility] [id number] [place] [address] ALT [Catalytic activity/Vol] 11 U/L Normal 10-54 [facility] Comment on above: Order Comment: Speci men Type: BLOOD SPECIMENOrdering Facility: [facility] Address: [address] [place] [address] Performed By: #### 2 4323-8 ####[facility]CL[facility] [id number] [place] [address] Anion gap [Moles/Vol] 9 mmol/L Normal 9-18 [facility] Comment on above: Order Comment: Speci men Type: BLOOD SPECIMENOrdering Facility: [facility] Address: [address] [place] [address] Performed By: #### 2 4323-8 ####[facility]CL[facility] [id number] [place] [address] AST [Catalytic activity/Vol] 14 U/L Normal 14-40 [facility] Comment on above: Order Comment: Speci men Type: BLOOD SPECIMENOrdering Facility: [facility] Address: [address] [place] [address] Performed By: #### 2 4323-8 ####[facility]CL[facility] [id number] [place] [address] Bilirubin [Mass/Vol] 0.3 mg/dL Normal 0.2-1.3 [facility] Comment on above: Order Comment: Speci men Type: BLOOD SPECIMENOrdering Facility: [facility] Address: [address] [place] [address] Performed By: #### 2 4323-8 ####[facility]CL[facility] [id number] [place] [address] Calcium [Mass/Vol] 9.2 mg/dL Normal 8.5-10.2 [facility] Comment on above: Order Comment: Speci men Type: BLOOD SPECIMENOrdering Facility: [facility] Address: [address] [place] [address] Performed By: #### 2 4323-8 ####[facility]CL[facility] [id number] [place] [address] Chloride [Moles/Vol] 109 mmol/L High 97-105 [facility] Comment on above: Order Comment: Speci men Type: BLOOD SPECIMENOrdering Facility: [facility] Address: [address] [place] [address] Performed By: #### 2 4323-8 ####[facility]CL[facility] [id number] [place] [address] CO2 [Moles/Vol] 26 mmol/L Normal 22-30 [facility] [facility] Comment on above: Order Comment: Speci men Type: BLOOD SPECIMENOrdering Facility: [facility] Address: [address] [place] [address] Performed By: #### 2 4323-8 ####[facility] [id number] [place] [address] Creatinine [Mass/Vol] 1.09 mg/dL Normal 0.73-1.22 [facility] Comment on above: Order Comment: Nazario brooks Type: BLOOD SPECIMENOrdering Facility: [facility] Address: [address] [place] [address] Performed By: #### 2 4323-8 ####[facility] [id number] [place] [address] Creatinine and Glomerular filtration rate.predicted panel (S/P/Bld) 73 mL/min/1.73m??? Normal >=60 [facility] Comment on above: Order Comment: Nazario brooks Type: BLOOD SPECIMENOrdering Facility: [facility] Address: [address] [place] [address] Result Comment: Rebekah mated Glomerular Filtration Rate [...] actual GFR. Performed By: #### 2 4323-8 ####[facility] [id number] [place] [address] Glucose [Mass/Vol] 124 mg/dL High 74-99 [facility] Comment on above: Order Comment: Nazario brooks Type: BLOOD SPECIMENOrdering Facility: [facility] Address: [address] [place], [place] [address] Result Comment: The [employer] (ADA) provides guidance for cutoff [...] Standards of Medical Care in Diabetes 2016, [employer]. Diabetes Care. 2016.39(Suppl 1). Performed By: #### 2 4323-8 ####[facility] [id number] [place] [address] Potassium [Moles/Vol] 3.6 mmol/L Low 3.7-5.1 [facility] Comment on above: Order Comment: Speci men Type: BLOOD SPECIMENOrdering Facility: [facility] Address: [address] [place] [address] Performed By: #### 2 4323-8 ####[facility] [id number] [place] [address] Protein [Mass/Vol] 6.0 g/dL Low 6.3-8.0 [facility] Comment on above: Order Comment: Speci men Type: BLOOD SPECIMENOrdering Facility: [facility] Address: [address] [place] [address] Performed By: #### 2 4323-8 ####[facility] [id number] [place] [address] Sodium [Moles/Vol] 144 mmol/L Normal 136-144 [facility] Comment on above: Order Comment: Speci men Type: BLOOD SPECIMENOrdering Facility: [facility] Address: [address] [place] [address] Performed By: #### 2 4323-8 ####[facility] [id number] [place] [address] Urea nitrogen [Mass/Vol] 17 mg/dL Normal 9-24 [facility] Comment on above: Order Comment: Speci men Type: BLOOD SPECIMENOrdering Facility: [facility] Address: [address] [place] [address] Performed By: #### 2 4323-8 ####[facility] [id number] [place] [address] ANES POSTPROC EVALon 024 ANES POSTPROC EVAL HNO ID: [id number] Author: REX LIZAMA MD Service: Anesthesiology Author [...] Norman MD; Rex Lizama MD; Jacky Taylor APRN.BLAST SETTER Responsible Provider: Rex Lizama MD Anesthesia Type: [...] November 05, 2023 TIME: 10:40 AM CSN: [id number] [facility] ANES PRE-OPon 11-05-2023 ANES PRE-OP HNO ID: [id number] Author: REX LIZAMA MD Service: Anesthesiology Author Type: Physician Type: Anesthesia Preprocedure Evaluation Filed: 11/05/2023 09:31 Note Text: ANESTHESIOLOGY DAY OF SURGERY NOTE : 1950 Procedure Information Date/Time: 11/05/23929 Scheduled providers: Deborah Norman MD; Rex Lizama MD; Jacky Taylor APRN.BLAST SETTER Procedure: SIGMOIDOSCOPY Location: Procedures Estimated body mass [...] and consent discussed: yes. Patient / Responsible Republican agrees to proceed: yes Patient / Surrogate [...] November 05, 2023 TIME: 9:29 AM CSN: [id number] Normal [facility] Flexible Sigmoidoscopyon Flexible sigmoidoscopy [facility] Gastrointestinal Endoscopy Patient Name: Mervat Damon Procedure Date: 11/05/2023 9:46 AM Date of : 1950 Admit Type: Outpatient Age: 73 Room: [place] [address] Gender: Male Note Status: Finalized Attending MD: [...] for surveillance. Procedure Code(s): --- Professional --- 19376, Sigmoidoscopy, flexible; with biopsy, single or multiple CPT copyright 2020 [employer]. All rights reserved. The codes documented in this report are preliminary and upon icd 9 coder review may be revised to meet [...] Loss: Estimated blood loss was minimal. Normal [facility] HISTORY PHYSICALon HISTORY PHYSICAL HNO ID: [id number] Author: DEBORAH NORMAN MD Service: Colorectal Author [...] ENDOSCOPY HISTORY AND PHYSICAL EXAM Mervat Damon [id number] Subjective HPI: Mervat Damon is a 72 [...] Anesthesia Prabhu Jacobs MD 11/05/2023 9:44 AM [facility] SURGICAL PATHOLOGYon 024 CASE REPORT [facility] Comment on above: Order Comment: Speci men Type: TISSUE SPECIMEN Ordering Facility: [facility] Address: [address] [place] [address] Result Comment: Surg ica Pathology Report Case: [id number] Authorizing Provider: Deborah Norman MD Collected: 11/05/2023 10:06 AM Ordering Location: Procedures Received: 11/05/2023 10:33 AM Pathologist: Vinicius Beebe MD Specimens: A) - RECTAL POLYP B) - ANAL CANAL BIOPSY, Anal polyp Performed By: #### S #### [facility] CLIA [id number] [address] [place] [address] FINAL DIAGNOSIS [facility] ital Comment on above: Order Comment: Speci men Type: TISSUE SPECIMEN Ordering Facility: [facility] Address: [address] [place] [address] Result Comment: A. R ectum, polypectomy: - Colonic mucosa with mild architectural distortion. B. Anal canal, polypectomy: - Polypoid squamous mucosa. Performed By: #### S #### [facility] CLIA [id number] [address] [place] [address] OF [facility] FINAL PERFORMING LAB [facility] Comment on above: Order Comment: Speci men Type: TISSUE SPECIMEN Ordering Facility: [facility] Address: [address] [place] [address] Result Comment: Diag nostic interpretation performed at [place] [address] CLIA# [id number] Concrete Hopper Operator: Pineda Conti M.D. Performed By: #### S #### [facility] IA [id number] [address] [place] [address] OF [facility] GROSS DESCRIPTION A. RECTAL POLYP [facility] Comment on above: Order Comment: Speci men Type: TISSUE SPECIMEN Ordering Facility: [facility] Address: [address] [place] [address] Result Comment: Rece ived in formalin are [...] in one cassette. Gross examination performed at [facility], [address] [place] [address] 11/05/2023 4:24 PM Performed By: #### S #### [facility] IA [id number] [address] [place] [address] [place] Consent for Procedure/Surger yon 10-24-2023 Consent for Procedure/Surgery [id number]#1.00T IFF Normal [facility] Consent for Procedure/Surgery [id number]#1.00T IFF Normal [facility] IntraOperative Documentson 0 10-24-2023 IntraOperative Documents [id number]#1.00T IFF Normal [facility] CNPNon 10-22-2023 CNPN Normal [facility] Office/Clinic Note-Physician on 10-10-2023 Office/Clinic Note-Physician [id number]#1.00 TIFF Normal [facility] Consent for Treatmenton 09-21 Consent for Treatment [id number]#1.00 TIFF Cale Ceja [facility] Consultation Noteon 10-09-20 Consultation Note Patient: MERVAT [...] hrs., # 15 tab(s), Refills(s) 6, Pharmacy: [facility] #[id number], 188, cm, 10/24/22 10:33:00 EST, Height/Length Dosing, 112, kg, 10/24/22 1... Flomax 0.4 mg Cap: 0.4 mg = 1 cap(s), Oral, BID, # 180 cap(s), Refills(s) 3, Pharmacy: [facility], 188, cm, 05/07/23 13:45:00 EDT, Height/Length Dosing, 109, kg, 05/07/23 13:45:00 EDT, Weight Dosing carvedilol 6.25 mg Tab: 6.25 mg = 1 tab(s), Oral, BID, # 180 tab(s), Refills(s) 3, [id number], 188, cm, 04/29/23 8:41:00 EDT, Height/Length Dosing, 106.8, kg, 04/29/23 8:41:00 EDT, Weight Dosing cyclobenzaprine 10 mg Tab: 10 mg = 1 tab(s), Oral, TID, PRN for spasm, # 20 tab(s), Refills(s) 0, [facility]acy: [facility] #[id number], 188, cm, 03/18/23 10:50:00 EDT, Height/Length Dosing, 111, kg, 03/18/23 10:50:00 EDT, Weight Dosing finasteride 5 mg Tab: 5 mg = 1 tab(s), Oral, Daily, X 90 day(s), # 90 tab(s), Refills(s) 3, Pharmacy: [facility], 188, cm, 10/24/22 10:33:00 EST, Height/Length Dosing, 112, kg, 10/24/22 10:33:00 EST, Weight Dosing hydrochlorothiazide 12.5 mg Cap: 12.5 mg = 1 cap(s), Oral, Daily, # 90 cap(s), Refills(s) 3, Pharmacy: [facility] #[id number], 188, cm, 04/29/23 8:41:00 EDT, Height/Length Dosing, 106.8, kg, 04/29/23 8:41:00 EDT, Weight Dosing valsartan 80 mg Tab: 80 mg = 1 tab(s), Oral, Daily, # 90 tab(s), Refills(s) 3, Pharmacy: [facility] #[id number], 188, cm, 04/29/23 8:41:00 EDT, Height/Length Dosing, [...] list: All Problems [place] / SNOMED CT 965507556 / Confirmed Inguinal hernia, right / SNOMED CT 028188636 / Confirmed Bulging of cervical intervertebral disc / SNOMED CT 2015469027 / Confirmed RA - Rheumatoid arthritis / SNOMED CT 8181369920 / Confirmed Cervical spinal stenosis / SNOMED CT 552491700 / Confirmed BPH with urinary obstruction / SNOMED CT 2744108483 / Confirmed Non-ischemic cardiomyopathy / SNOMED CT 273182931 / Confirmed BMI 31.0-31.9,adult / SNOMED CT 289925118 / Confirmed Tobacco non-user / SNOMED CT 736914600 / Confirmed Erectile dysfunction / SNOMED CT 2193066380 / Confirmed Rectal cancer / SNOMED CT 347782161 / Confirmed Neck pain without injury / SNOMED CT 428105781 / Confirmed Canceled: Arthritis, rheumatoid / SNOMED CT 429649887 Canceled: Kidney stones / SNOMED CT 212QE216-B071-4359-U1N5 -[id number] Canceled: Acute pulmonary embolism / SNOMED CT 4860802808 Canceled: Frequent episodes of bronchitis and pneumonia / SNOMED CT 099056952 Canceled: Nocturia / SNOMED CT 286740835 Canceled: Arthritis / SNOMED CT 5003879 Canceled: Left lower quadrant abdominal pain / SNOMED CT 710712967 Canceled: Shingles rash / SNOMED CT 8008679 Canceled: Hip pain, left / SNOMED CT 80204023 Canceled: Pneumonia / SNOMED CT 269758995 Canceled: History of blood clots / SNOMED CT 571606382 Canceled: Weak urine stream / SNOMED CT 134647410 Canceled: Rotator cuff syndrome of right shoulder / SNOMED CT 7151390 Canceled: Impingement syndrome of right shoulder region / SNOMED CT 333205828 Canceled: Left wrist pain / SNOMED CT 31121712 Canceled: Right ankle pain / SNOMED CT 347254248 Canceled: BMI 31.0-31.9,adult / SNOMED CT 808635798 Canceled: Rash and other nonspecific skin eruption / SNOMED CT 522668445 Canceled: Lower respiratory tract infection / SNOMED C (more content not included)... Normal [facility] Comment on above: Result Comment: Elec tronically Signed By: Cyndee Torres PA-C\.br\Date and Time Signed: 10/09/23 13:28 EST\.br\Electronically Co-Signed By: Reese Reid DO\.br\Date and Time Co-Signed: 10/10/23 08:26 EST Office/Clinic Note-Nurseon 1 12-10-2022 Office/Clinic Note-Nurse [id number]#1.00 TIFF Normal [facility] Office/Clinic Note-Physician on 10-09-2023 Office/Clinic Note-Physician [id number]#1.00 TIFF Normal [facility] Patient Correspondenceon Patient Correspondence [id number]#1.00 TIFF Normal [facility] Patient Correspondence [id number]#1.00 TIFF Normal [facility] Patient History Officeon Patient History Office [id number]#1.00 TIFF Normal [facility] Radiology Outside Office Spool Hauler yon 10-07-2023 Radiology Outside Office Copy [id number]#1.00 TIFF Normal [facility] CEA SerPl-mCncon 09-05-2023 Carcinoembryonic Ag [Mass/Vol] 1.8 ng/mL Normal <=2.9 [facility] Comment on above: Order Comment: Speci men Type: BLOOD SPECIMENOrdering Facility: [facility] Address: [address] [place] [address] Result Comment: Carc inoembryonic antigen test is used as an aid in monitoring response to treatment or recurrence in patients with established colorectal, breast, lung, prostatic, pancreatic, and ovarian carcinomas. Clinical correlation is required.The Carcinoembryonic antigen test was performed using the [employer] Unicel DXI paramagnetic particle chemiluminescent immunoassay method. Results obtained with different assay methods or kits cannot be used interchangeably. Performed By: #### 2 039-6 ####[facility] [id number] [facility] [id number] [address] [place] CBC W Auto Differential pane l (Bld)on 08-27-2023 Basophils (Bld) [#/Vol] 0.06 10*3/uL Normal <0.11 [facility] Comment on above: Order Comment: Speci men Type: BLOOD SPECIMENOrdering Facility: [facility] Address: [address] [place] [address] Performed By: #### 5 7021-8 ####[facility] [id number] [place] [address] Basophils/100 WBC (Bld) 0.9 % Normal [facility] Comment on above: Order Comment: Speci men Type: BLOOD SPECIMENOrdering Facility: [facility] Address: [address] [place] [address] Performed By: #### 5 7021-8 ####[facility] [id number] [place] [address] Differential cell count method Nom (Bld) Auto Normal [facility] Comment on above: Order Comment: Speci men Type: BLOOD SPECIMENOrdering Facility: [facility] Address: [address] [place] [address] Performed By: #### 5 7021-8 ####[facility] [id number] [place] [address] Eosinophils (Bld) [#/Vol] 0.22 10*3/uL Normal <0.46 [facility] Comment on above: Order Comment: Speci men Type: BLOOD SPECIMENOrdering Facility: [facility] Address: [address] [place] [address] Performed By: #### 5 7021-8 ####[facility] [id number] [place] [address] Eosinophils/100 WBC (Bld) 3.2 % Normal [facility] Comment on above: Order Comment: Speci men Type: BLOOD SPECIMENOrdering Facility: [facility] Address: [address] [place] [address] Performed By: #### 5 7021-8 ####[facility] [id number] [place] [address] Erythrocyte distribution width (RBC) [Ratio] 15.5 % High 11.5-15.0 [facility] Comment on above: Order Comment: Speci men Type: BLOOD SPECIMENOrdering Facility: [facility] Address: [address] [place] [address] Performed By: #### 5 7021-8 ####[facility] [id number] [place] [address] Hematocrit (Bld) [Volume fraction] 41.2 % Normal 39.0-51.0 [facility] Comment on above: Order Comment: Speci men Type: BLOOD SPECIMENOrdering Facility: [facility] Address: [address] [place] [address] Performed By: #### 5 7021-8 ####[facility] [id number] [place] [address] Hemoglobin (Bld) [Mass/Vol] 13.4 g/dL Normal 13.0-17.0 [facility] Comment on above: Order Comment: Speci men Type: BLOOD SPECIMENOrdering Facility: [facility] Address: [address] [place] [address] Performed By: #### 5 7021-8 ####[facility] [id number] [place] [address] Immature granulocytes (Bld) [#/Vol] 10*3/uL Normal <0.10 [facility] Comment on above: Order Comment: Speci men Type: BLOOD SPECIMENOrdering Facility: [facility] Address: [address] [place] [address] Performed By: #### 5 7021-8 ####[facility] [id number] [place] [address] Immature granulocytes/100 WBC (Bld) 0.3 % Normal [facility] Comment on above: Order Comment: Speci men Type: BLOOD SPECIMENOrdering Facility: [facility] Address: [address] [place] [address] Performed By: #### 5 7021-8 ####[facility] [id number] [place] [address] Lymphocytes (Bld) [#/Vol] 0.85 10*3/uL Low 1.00-4.00 [facility] Comment on above: Order Comment: Speci men Type: BLOOD SPECIMENOrdering Facility: [facility] Address: [address] [place] [address] Performed By: #### 5 7021-8 ####[facility] [id number] [place] [address] Lymphocytes/100 WBC (Bld) 12.4 % Normal [facility] Comment on above: Order Comment: Speci men Type: BLOOD SPECIMENOrdering Facility: [facility] Address: [address] [place] [address] Performed By: #### 5 7021-8 ####[facility] [id number] [place] [address] MCH (RBC) [Entitic mass] 31.1 pg Normal 26.0-34.0 [facility] Comment on above: Order Comment: Speci men Type: BLOOD SPECIMENOrdering Facility: [facility] Address: [address] [place] [address] Performed By: #### 5 7021-8 ####[facility] [id number] [place] [address] MCHC (RBC) [Mass/Vol] 32.5 g/dL Normal 30.5-36.0 [facility] Comment on above: Order Comment: Speci men Type: BLOOD SPECIMENOrdering Facility: [facility] Address: [address] [place] [address] Performed By: #### 5 7021-8 ####[facility] [id number] [place] [address] MCV (RBC) [Entitic vol] 95.6 fL Normal 80.0-100.0 [facility] Comment on above: Order Comment: Speci men Type: BLOOD SPECIMENOrdering Facility: [facility] Address: [address] [place] [address] Performed By: #### 5 7021-8 ####[facility] [id number] [place] [address] Monocytes (Bld) [#/Vol] 0.60 10*3/uL Normal <0.87 [facility] Comment on above: Order Comment: Speci men Type: BLOOD SPECIMENOrdering Facility: [facility] Address: [address] [place] [address] Performed By: #### 5 7021-8 ####[facility] [id number] [place] [address] Monocytes/100 WBC (Bld) 8.8 % Normal [facility] Comment on above: Order Comment: Speci men Type: BLOOD SPECIMENOrdering Facility: [facility] Address: [address] [place] [address] Performed By: #### 5 7021-8 ####[facility] [id number] [place] [address] Neutrophils (Bld) [#/Vol] 5.10 10*3/uL Normal 1.45-7.50 [facility] Comment on above: Order Comment: Speci men Type: BLOOD SPECIMENOrdering Facility: [facility] Address: [address] [place] [address] Performed By: #### 5 7021-8 ####[facility] [id number] [place] [address] Neutrophils/100 WBC (Bld) 74.4 % Normal [facility] Comment on above: Order Comment: Speci men Type: BLOOD SPECIMENOrdering Facility: [facility] Address: [address] [place] [address] Performed By: #### 5 7021-8 ####[facility] [id number] [place] [address] Nucleated RBC (Bld) [#/Vol] 10*3/uL Normal <0.01 [facility] Comment on above: Order Comment: Speci men Type: BLOOD SPECIMENOrdering Facility: [facility] Address: [address] [place] [address] Performed By: #### 5 7021-8 ####[facility] [id number] [place] [address] Nucleated RBC/100 WBC (Bld) [Ratio] 0.0 /100 WBC Normal [facility] Comment on above: Order Comment: Speci men Type: BLOOD SPECIMENOrdering Facility: [facility] Address: [address] [place] [address] Performed By: #### 5 7021-8 ####[facility] [id number] [place] [address] Platelet mean volume (Bld) [Entitic vol] 10.0 fL Normal 9.0-12.7 [facility] Comment on above: Order Comment: Speci men Type: BLOOD SPECIMENOrdering Facility: [facility] Address: [address] [place] [address] Performed By: #### 5 7021-8 ####[facility] [id number] [place] [address] Platelets (Bld) [#/Vol] 188 10*3/uL Normal 150-400 [facility] Comment on above: Order Comment: Speci men Type: BLOOD SPECIMENOrdering Facility: [facility] Address: [address] [place] [address] Performed By: #### 5 7021-8 ####[facility] [id number] [place] [address] RBC (Bld) [#/Vol] 4.31 10*6/uL Normal 4.20-6.00 [facility] Comment on above: Order Comment: Speci men Type: BLOOD SPECIMENOrdering Facility: [facility] Address: [address] [place] [address] Performed By: #### 5 7021-8 ####[facility] [id number] [place] [address] WBC (Bld) [#/Vol] 6.85 10*3/uL Normal 3.70-11.00 [facility] Comment on above: Order Comment: Speci men Type: BLOOD SPECIMENOrdering Facility: [facility] Address: [address] [place] [address] Performed By: #### 5 7021-8 ####[facility] [id number] [place] [address] CEA SerPl-ncon 08-27-2023 Carcinoembryonic Ag [Mass/Vol] 1.7 ng/mL Normal <=2.9 [facility] Comment on above: Order Comment: Speci men Type: BLOOD SPECIMENOrdering Facility: [facility] Address: [address] [place] [address] Result Comment: Carc inoembryonic antigen test is used as an aid in monitoring response to treatment or recurrence in patients with established colorectal, breast, lung, prostatic, pancreatic, and ovarian carcinomas. Clinical correlation is required.The Carcinoembryonic antigen test was performed using the [employer] DXI paramagnetic particle chemiluminescent immunoassay method. Results obtained with different assay methods or kits cannot be used interchangeably. Performed By: #### 2 039-6 ####[facility] [id number] [facility] [id number] [address] [place] CNOVSPon 08-27-2023 CNOVSP Normal [facility] CNPNon 08-27-2023 CNPN Normal [facility] Comprehensive metabolic 2000 panelon 08-27-2023 Albumin [Mass/Vol] 4.2 g/dL Normal 3.9-4.9 [facility] Comment on above: Order Comment: Speci men Type: BLOOD SPECIMENOrdering Facility: [facility] Address: [address] [place] [address] Performed By: #### 2 4323-8 ####[facility] [id number] [place] [address] ALP [Catalytic activity/Vol] 95 U/L Normal 38-113 [facility] Comment on above: Order Comment: Speci men Type: BLOOD SPECIMENOrdering Facility: [facility] Address: [address] [place] [address] Performed By: #### 2 4323-8 ####[facility]IA [id number] [place] [address] ALT [Catalytic activity/Vol] 7 U/L Low 10-54 [facility] Comment on above: Order Comment: Speci men Type: BLOOD SPECIMENOrdering Facility: [facility] Address: [address] [place] [address] Performed By: #### 2 4323-8 ####[facility] [id number] [place] [address] Anion gap [Moles/Vol] 9 mmol/L Normal 9-18 [facility] Comment on above: Order Comment: Speci men Type: BLOOD SPECIMENOrdering Facility: [facility] Address: [address] [place] [address] Performed By: #### 2 4323-8 ####[facility] [id number] [place] [address] AST [Catalytic activity/Vol] 13 U/L Low 14-40 [facility] Comment on above: Order Comment: Speci men Type: BLOOD SPECIMENOrdering Facility: [facility] Address: [address] [place] [address] Performed By: #### 2 4323-8 ####[facility] LABCLIA [id number] [place] [address] Bilirubin [Mass/Vol] 0.4 mg/dL Normal 0.2-1.3 [facility] Comment on above: Order Comment: Speci men Type: BLOOD SPECIMENOrdering Facility: [facility] Address: [address] [place] [address] Performed By: #### 2 4323-8 ####[facility] LABCLIA [id number] [place] [address] Calcium [Mass/Vol] 8.8 mg/dL Normal 8.5-10.2 [facility] Comment on above: Order Comment: Speci men Type: BLOOD SPECIMENOrdering Facility: [facility] Address: [address] [place] [address] Performed By: #### 2 4323-8 ####[facility] LABCLIA [id number] [place] [address] Chloride [Moles/Vol] 104 mmol/L Normal 97-105 [facility] Comment on above: Order Comment: Speci men Type: BLOOD SPECIMENOrdering Facility: [facility] Address: [address] [place] [address] Performed By: #### 2 4323-8 ####[facility] [id number] [place] [address] CO2 [Moles/Vol] 27 mmol/L Normal 22-30 [facility] Comment on above: Order Comment: Speci men Type: BLOOD SPECIMENOrdering Facility: [facility] Address: [address] [place] [address] Performed By: #### 2 4323-8 ####[facility] [id number] [place] [address] Creatinine [Mass/Vol] 1.21 mg/dL Normal 0.73-1.22 [facility] Comment on above: Order Comment: Nazario brooks Type: BLOOD SPECIMENOrdering Facility: [facility] Address: [address] [place] [address] Performed By: #### 2 4323-8 ####[facility] [id number] [place] [address] Creatinine and Glomerular filtration rate.predicted panel (S/P/Bld) 64 mL/min/1.73m??? Normal >=60 [facility] Comment on above: Order Comment: Nazario brooks Type: BLOOD SPECIMENOrdering Facility: [facility] Address: [address] [place] [address] Result Comment: Rebekah mated Glomerular Filtration Rate [...] actual GFR. Performed By: #### 2 4323-8 ####[facility] [id number] [place] [address] Glucose [Mass/Vol] 91 mg/dL Normal 74-99 [facility] Comment on above: Order Comment: Nazario brooks Type: BLOOD SPECIMENOrdering Facility: [facility] Address: [address] [place] [address] Result Comment: The [employer] (ADA) provides guidance for cutoff [...] Standards of Medical Care in Diabetes 2016, [employer]. Diabetes Care. 2016.39(Suppl 1). Performed By: #### 2 4323-8 ####[facility] [id number] [place] [address] Potassium [Moles/Vol] 3.7 mmol/L Normal 3.7-5.1 [facility] Comment on above: Order Comment: Speci men Type: BLOOD SPECIMENOrdering Facility: [facility] Address: [address] [place] [address] Performed By: #### 2 4323-8 ####[facility] [id number] [place] [address] Protein [Mass/Vol] 6.2 g/dL Low 6.3-8.0 [facility] Comment on above: Order Comment: Speci men Type: BLOOD SPECIMENOrdering Facility: [facility] Address: [address] [place] [address] Performed By: #### 2 4323-8 ####[facility] [id number] [place] [address] Sodium [Moles/Vol] 140 mmol/L Normal 136-144 [facility] Comment on above: Order Comment: Speci men Type: BLOOD SPECIMENOrdering Facility: [facility] Address: [address] [place] [address] Performed By: #### 2 4323-8 ####[facility] [id number] [place] [address] Urea nitrogen [Mass/Vol] 22 mg/dL Normal 9-24 [facility] Comment on above: Order Comment: Speci men Type: BLOOD SPECIMENOrdering Facility: [facility] Address: [address] [place] [address] Performed By: #### 2 4323-8 ####[facility]CL[facility] [id number] [place] [address] IntraOperative Documentson 1 10-27-2022 IntraOperative Documents [id number]#1.00T IFF Normal [facility] Consent for Treatmenton 11-0 Consent for Treatment [id number]#1.00T IFF Normal [facility] MR lumbar spine wo conon MR lumbar spine wo con [facility] [place] [address] [place] [address] MRI Report Signed Patient: Mervat Damon MR#: [id number] : 1950 Acct:[id number] Age/Sex: 72 / M ADM Date: 08/14/23 Loc: [facility] Room: Type: [facility] Attending Dr: Valencia ONEAL Copies to: JM [...] above. Impression dictated by: Hang Houser Jr., D.OShirley08/14/2023 2:30 PM Dictation Location: [place] [address] Transcribed By: [facility] 08/14/23 1430 Dictated By: Hang Houser Jr, DO 08/14/23 1426 Signed By: 08/14/23 1430 Normal [facility] MR lumbar spine wo con [facility] [employer] Other MR lumbar spine wo con [facility] [employer] Other MR lumbar spine wo con [address] [facility] [employer] Other [place] [address] [employer] Other MR lumbar spine wo con MRI Report [employer] Other MR lumbar spine wo con Signed [employer] Other MR lumbar spine wo con Patient: Mervat Damon MR#: [id number] [employer] Other MR lumbar spine wo con 4313 [employer] Other MR lumbar spine wo con : 1950 Acct:[id number] [employer] Other MR lumbar spine wo con Age/Sex: 72 / M ADM Date: 08/14/23 [employer] Other MR lumbar spine wo con Loc: [facility] Room: Type: [facility] [employer] Other MR lumbar spine wo con Attending Dr: Valencia Torres [employer] TEACHER-C [employer] Other MR lumbar spine wo con Copies to: LISA GodoyC [employer] Other MR lumbar spine wo con Ordering Provider: JM Godoy [employer] Other MR lumbar spine wo con Date of Service: 08/14/23 [employer] Other MR lumbar spine wo con MR/MR lumbar spine wo con: Polyneuropathy [employer] Other MR lumbar spine wo con MRI lumbar spine without IV contrast. [employer] Other MR lumbar spine wo con Reason for exam: Back pain. History of colorectal cancer.. No known injury. [employer] Other MR lumbar spine wo con COMPARISON: Lumbar spine series 05/17/2023. Ex [employer] Other MR lumbar spine wo con TECHNIQUE: Multisequence, multiplanar imaging of the lumbar spine was obtained without the use of IV [employer] Other MR lumbar spine wo con contrast. [employer] Other MR lumbar spine wo con FINDINGS: Vertebral body heights appear maintained. No bone marrow edema is seen. Presumed [employer] Other MR lumbar spine wo con postradiation bone marrow changes are seen involving the L5 vertebral body and visualized sacrum. [employer] Other MR lumbar spine wo con Spinal cord terminates in normal position without abnormal cord signal. No paraspinal mass. [employer] Other MR lumbar spine wo con Visualized retroperitoneum demonstrates presumed bilateral parapelvic cysts. [employer] Other MR lumbar spine wo con L1-L2: Diffuse broad-based disc bulge is present with central protrusion type disc herniation noted. [employer] Other MR lumbar spine wo con There is ligamentum flavum hypertrophy and facet joint degenerative changes. Findings are causing [employer] Other MR lumbar spine wo con moderate canal and severe left-sided neural foraminal stenosis. Mild right-sided neural foraminal [employer] Other MR lumbar spine wo con stenosis. [employer] Other MR lumbar spine wo con L2-L3: 5 mm retrolisthesis is noted. Broad-based disc bulge is present with ligamentum flavum [employer] Other MR lumbar spine wo con hypertrophy and facet joint degenerative changes. Findings are causing moderate canal and severe [employer] Other MR lumbar spine wo con bilateral neural foraminal narrowing. [employer] Other MR lumbar spine wo con L3-L4: 3 mm retrolisthesis. Diffuse broad-based disc bulge is present with ligamentum flavum [employer] Other MR lumbar spine wo con hypertrophy and facet joint degenerative changes causing mild canal and severe bilateral neural [employer] Other MR lumbar spine wo con foraminal stenosis. [employer] Other MR lumbar spine wo con L4-L5: 6 mm of anterolisthesis. Diffuse broad-based disc bulge is present with ligamentum flavum [employer] Other MR lumbar spine wo con hypertrophy and facet joint degenerative changes causing severe canal and right-sided neural [employer] Other MR lumbar spine wo con foraminal stenosis. Moderate left-sided neural foraminal stenosis. [employer] Other MR lumbar spine wo con L5-S1: No posterior disc pathology is noted. Facet joint degenerative changes. No significant canal [employer] Other MR lumbar spine wo con stenosis. Severe bilateral foraminal stenosis. [employer] Other MR lumbar spine wo con MR/MR lumbar spine wo con [employer] Other MR lumbar spine wo con Impression: Multilevel degenerative disc disease as described above. [employer] Other MR lumbar spine wo con Impression dictated by: Hang Houser Jr., D.O.08/14/2023 2:30 PM [employer] Other MR lumbar spine wo con Dictation Location: [place] [address] [employer] Other MR lumbar spine wo con Transcribed By: [facility] 08/14/23 [facility] [employer] Other MR lumbar spine wo con Dictated By: Hang oHuser Jr, DO 08/14/23 [facility] [employer] Other MR lumbar spine wo con Signed By: [employer] Other MR lumbar spine wo con 08/14/23 [facility] [employer] Other PT - Assessmentson 3 PT - Assessments [id number] CD:127 Normal [facility] ANES POSTPROC EVALon 023 ANES POSTPROC EVAL HNO ID: [id number] Author: Sybil Proctor MD Service: ? Author [...] Scheduled Providers: Deborah Norman MD; Elba Snell APRN.BLAST SETTER; Sybil Porctor MD; Santiago Sidhu RN Responsible Provider: Sybil [...] July 09, 2023 TIME: 2:49 PM CSN: [id number] [facility] ANES PRE-OPon 07-09-2023 ANES PRE-OP HNO ID: [id number] Author: Sybil Proctor MD Service: ? Author Type: Physician Type: Anesthesia Preprocedure Evaluation Filed: 07/09/2023 9:06 AM Note Text: ANESTHESIOLOGY DAY OF SURGERY NOTE : 1950 Procedure Information Date/Time: 07/09/23929 Scheduled providers: Deborah Norman MD; Elba Snell APRN.BLAST SETTER; Sybil Proctor MD; Santiago Sidhu RN Procedure: [...] and consent discussed: yes. Patient / Responsible Republican agrees to proceed: yes Patient / Surrogate [...] No current facility (more content not included)... [facility] PREOPon 07-09-2023 [facility] PREOP HNO ID: [id number] Author: Toshia Mixon MD Service: Colorectal Author [...] July 09, 2023 TIME: 9:22 AM Normal [facility] Flexible Sigmoidoscopyon Flexible sigmoidoscopy [facility] Gastrointestinal Endoscopy Patient Name: Mervat Damon Procedure Date: 07/09/2023 9:19 AM Date of : 1950 Admit Type: Outpatient Age: 72 Room: [place] [address] Gender: Male Note Status: Finalized Attending MD: [...] for surveillance. Procedure Code(s): --- Professional --- 79866, 54, Sigmoidoscopy, flexible; diagnostic, including collection of specimen(s) by brushing or washing, when performed (separate procedure) CPT copyright 2020 [employer]. All rights reserved. The codes documented in this report are preliminary and upon icd 9 coder review may be revised to meet [...] Estimated Blood Loss: Estimated blood loss: none. [facility] Nonvisit Note - PTon 023 Nonvisit Note - PT cx will be out of town [facility] SIGMOIDOSCOPYon 07-09-2023 [facility] Consultation Noteon 07-04-20 Consultation Note [id number]#1.00CD :127 [facility] PT - Assessmentson 3 PT - Assessments [id number]#1.00C D:127 [facility] Nonvisit Note - PTon 023 Nonvisit Note - PT Pt. did not show to 06/27/23 outpatient PT re-eval appt. helpdesk analyst messaged to call pt. to reschedule pt.'s re-eval as he has further appointments scheduled and needs a re-eval. Normal [facility] CBC W Auto Differential pane l (Bld)on 06-20-2023 Basophils (Bld) [#/Vol] 0.05 10*3/uL Normal <0.11 [facility] Comment on above: Order Comment: Speci men Type: BLOOD SPECIMENOrdering Facility: [facility] Address: [address] [place] [address] [place] [address] Performed By: #### 5 7021-8 ####[facility]CL[facility] [id number] [place] [address] Basophils/100 WBC (Bld) 0.8 % Normal [facility] Comment on above: Order Comment: Speci men Type: BLOOD SPECIMENOrdering Facility: [facility] Address: [address] [place] [address] Performed By: #### 5 7021-8 ####[facility]CL[facility] [id number] [place] [address] Differential cell count method Nom (Bld) Auto Normal [facility] Comment on above: Order Comment: Speci men Type: BLOOD SPECIMENOrdering Facility: [facility] Address: [address] [place] [address] Performed By: #### 5 7021-8 ####[facility]CL[facility] [id number] [place] [address] Eosinophils (Bld) [#/Vol] 0.20 10*3/uL Normal <0.46 [facility] Comment on above: Order Comment: Speci men Type: BLOOD SPECIMENOrdering Facility: [facility] Address: [address] [place] [address] Performed By: #### 5 7021-8 ####[facility]CL[facility] [id number] [place] [address] Eosinophils/100 WBC (Bld) 3.2 % Normal [facility] Comment on above: Order Comment: Speci men Type: BLOOD SPECIMENOrdering Facility: [facility] Address: [address] [place] [address] Performed By: #### 5 7021-8 ####[facility]CL[facility] [id number] [place] [address] Erythrocyte distribution width (RBC) [Ratio] 16.4 % High 11.5-15.0 [facility] Comment on above: Order Comment: Speci men Type: BLOOD SPECIMENOrdering Facility: [facility] Address: [address] [place], [place] [address] Performed By: #### 5 7021-8 ####[facility]CL[facility] [id number] [place] [address] Hematocrit (Bld) [Volume fraction] 37.4 % Low 39.0-51.0 [facility] Comment on above: Order Comment: Speci men Type: BLOOD SPECIMENOrdering Facility: [facility] Address: [address] [place] [address] Performed By: #### 5 7021-8 ####[facility]CL[facility] [id number] [place] [address] Hemoglobin (Bld) [Mass/Vol] 12.1 g/dL Low 13.0-17.0 [facility] Comment on above: Order Comment: Speci men Type: BLOOD SPECIMENOrdering Facility: [facility] Address: [address] [place] [address] Performed By: #### 5 7021-8 ####[facility]CL[facility] [id number] [place] [address] Immature granulocytes (Bld) [#/Vol] 0.04 10*3/uL Normal <0.10 [facility] Comment on above: Order Comment: Speci men Type: BLOOD SPECIMENOrdering Facility: [facility] Address: [address] [place] [address] Performed By: #### 5 7021-8 ####[facility]CL[facility] [id number] [place] [address] Immature granulocytes/100 WBC (Bld) 0.6 % Normal [facility] Comment on above: Order Comment: Speci men Type: BLOOD SPECIMENOrdering Facility: [facility] Address: [address] [place] [address] Performed By: #### 5 7021-8 ####[facility]CL[facility] [id number] [place] [address] Lymphocytes (Bld) [#/Vol] 0.82 10*3/uL Low 1.00-4.00 [facility] Comment on above: Order Comment: Speci men Type: BLOOD SPECIMENOrdering Facility: [facility] Address: [address] [place] [address] Performed By: #### 5 7021-8 ####[facility]CL[facility] [id number] [place] [address] Lymphocytes/100 WBC (Bld) 13.1 % Normal [facility] Comment on above: Order Comment: Speci men Type: BLOOD SPECIMENOrdering Facility: [facility] Address: [address] [place] [address] Performed By: #### 5 7021-8 ####[facility]CL[facility] [id number] [place] [address] MCH (RBC) [Entitic mass] 31.7 pg Normal 26.0-34.0 [facility] Comment on above: Order Comment: Speci men Type: BLOOD SPECIMENOrdering Facility: [facility] Address: [address] [place] [address] Performed By: #### 5 7021-8 ####[facility]CL[facility] [id number] [place] [address] MCHC (RBC) [Mass/Vol] 32.4 g/dL Normal 30.5-36.0 [facility] Comment on above: Order Comment: Speci men Type: BLOOD SPECIMENOrdering Facility: [facility] Address: [address] [place] [address] Performed By: #### 5 7021-8 ####[facility]CL[facility] [id number] [place] [address] MCV (RBC) [Entitic vol] 97.9 fL Normal 80.0-100.0 [facility] Comment on above: Order Comment: Speci men Type: BLOOD SPECIMENOrdering Facility: [facility] Address: [address] [place] [address] Performed By: #### 5 7021-8 ####[facility]CL[facility] [id number] [place] [address] Monocytes (Bld) [#/Vol] 0.83 10*3/uL Normal <0.87 [facility] Comment on above: Order Comment: Speci men Type: BLOOD SPECIMENOrdering Facility: [facility] Address: [address] [place] [address] Performed By: #### 5 7021-8 ####[facility]CL[facility] [id number] [place] [address] Monocytes/100 WBC (Bld) 13.3 % Normal [facility] Comment on above: Order Comment: Speci men Type: BLOOD SPECIMENOrdering Facility: [facility] Address: [address] [place] [address] Performed By: #### 5 7021-8 ####[facility]CL[facility] [id number] [place] [address] Neutrophils (Bld) [#/Vol] 4.32 10*3/uL Normal 1.45-7.50 [facility] Comment on above: Order Comment: Speci men Type: BLOOD SPECIMENOrdering Facility: [facility] Address: [address] [place] [address] Performed By: #### 5 7021-8 ####[facility]CL[facility] [id number] [place] [address] Neutrophils/100 WBC (Bld) 69.0 % Normal [facility] Comment on above: Order Comment: Speci men Type: BLOOD SPECIMENOrdering Facility: [facility] Address: [address] [place], [place] [address] Performed By: #### 5 7021-8 ####[facility]CL[facility] [id number] [place] [address] Nucleated RBC (Bld) [#/Vol] 10*3/uL Normal <0.01 [facility] Comment on above: Order Comment: Speci men Type: BLOOD SPECIMENOrdering Facility: [facility] Address: [address] [place] [address] Performed By: #### 5 7021-8 ####[facility] LABCLIA [id number] [place] [address] Nucleated RBC/100 WBC (Bld) [Ratio] 0.0 /100 WBC Normal [facility] Comment on above: Order Comment: Speci men Type: BLOOD SPECIMENOrdering Facility: [facility] Address: [address] [place] [address] Performed By: #### 5 7021-8 ####[facility] LABCLIA [id number] [place] [address] Platelet mean volume (Bld) [Entitic vol] 9.7 fL Normal 9.0-12.7 [facility] Comment on above: Order Comment: Speci men Type: BLOOD SPECIMENOrdering Facility: [facility] Address: [address] [place] [address] Performed By: #### 5 7021-8 ####[facility] LABCLIA [id number] [place] [address] Platelets (Bld) [#/Vol] 196 10*3/uL Normal 150-400 [facility] Comment on above: Order Comment: Speci men Type: BLOOD SPECIMENOrdering Facility: [facility] Address: [address] Performed By: #### 5 7021-8 ####[facility]CL[facility] [id number] [place] [address] RBC (Bld) [#/Vol] 3.82 10*6/uL Low 4.20-6.00 [facility] Comment on above: Order Comment: Speci men Type: BLOOD SPECIMENOrdering Facility: [facility] Address: [address] [place] [address] Performed By: #### 5 7021-8 ####[facility]CL[facility] [id number] [place] [address] WBC (Bld) [#/Vol] 6.26 10*3/uL Normal 3.70-11.00 [facility] Comment on above: Order Comment: Speci men Type: BLOOD SPECIMENOrdering Facility: [facility] Address: [address] [place] [address] Performed By: #### 5 7021-8 ####[facility]CL[facility] [id number] [place] [address] Basophils (Bld) [#/Vol] 0.05 10*3/uL <0.11 k/uL [facility] Basophils/100 WBC (Bld) 0.8 % [facility] Differential cell count method Nom (Bld) Auto [facility] Eosinophils (Bld) [#/Vol] 0.20 10*3/uL <0.46 k/uL [facility] Eosinophils/100 WBC (Bld) 3.2 % [facility] Erythrocyte distribution width (RBC) [Ratio] 16.4 % High 11.5 - 15.0 % [facility] Hematocrit (Bld) [Volume fraction] 37.4 % Low 39.0 - 51.0 % [facility] Hemoglobin (Bld) [Mass/Vol] 12.1 g/dL Low 13.0 - 17.0 g/dL [facility] Immature granulocytes (Bld) [#/Vol] 0.04 10*3/uL <0.10 k/uL [facility] Immature granulocytes/100 WBC (Bld) 0.6 % [facility] Lymphocytes (Bld) [#/Vol] 0.82 10*3/uL Low 1.00 - 4.00 k/uL [facility] Lymphocytes/100 WBC (Bld) 13.1 % [facility] MCH (RBC) [Entitic mass] 31.7 pg 26.0 - 34.0 pg [facility] MCHC (RBC) [Mass/Vol] 32.4 g/dL 30.5 - 36.0 g/dL [facility] MCV (RBC) [Entitic vol] 97.9 fL 80.0 - 100.0 fL [facility] Monocytes (Bld) [#/Vol] 0.83 10*3/uL <0.87 k/uL [facility] Monocytes/100 WBC (Bld) 13.3 % [facility] Neutrophils (Bld) [#/Vol] 4.32 10*3/uL 1.45 - 7.50 k/uL [facility] Neutrophils/100 WBC (Bld) 69.0 % [facility] Nucleated RBC (Bld) [#/Vol] <0.01 k/uL [facility] Nucleated RBC/100 WBC (Bld) [Ratio] 0.0 /100 WBC [facility] Platelet mean volume (Bld) [Entitic vol] 9.7 fL 9.0 - 12.7 fL [facility] Platelets (Bld) [#/Vol] 196 10*3/uL 150 - 400 k/uL [facility] RBC (Bld) [#/Vol] 3.82 10*6/uL Low 4.20 - 6.0 0 m/uL [facility] WBC (Bld) [#/Vol] 6.26 10*3/uL 3.70 - 11.00 k/uL [facility] CEA SerPl-mCncon 06-20-2023 Carcinoembryonic Ag [Mass/Vol] 1.7 ng/mL Normal <=2.9 [facility] Comment on above: Order Comment: Speci men Type: BLOOD SPECIMENOrdering Facility: [facility] Address: [address] [place] [address] Result Comment: Carc inoembryonic antigen test is used as an aid in monitoring response to treatment or recurrence in patients with established colorectal, breast, lung, prostatic, pancreatic, and ovarian carcinomas. Clinical correlation is required.The Carcinoembryonic antigen test was performed using the [employer] Unicel DXI paramagnetic particle chemiluminescent immunoassay method. Results obtained with different assay methods or kits cannot be used interchangeably. Performed By: #### 2 039-6 ####[facility] LABCLIA [id number] [place] [address] [place] CNPNon 06-20-2023 CNPN Normal [facility] CT ABDOMEN W IVCONon 023 CT ABDOMEN W IVCON Normal [facility] CT CHEST W IVCONon 3 CT CHEST W IVCON Normal [facility] metabolic 2000 panelon 06-20-2023 Albumin [Mass/Vol] 3.9 g/dL Normal 3.9-4.9 [facility] Comment on above: Order Comment: Speci men Type: BLOOD SPECIMENOrdering Facility: [facility] Address: [address] [place] [address] Performed By: #### 1 9123-9, 80879-4 ####[facility] LABCLIA [id number] [place] [address] ALP [Catalytic activity/Vol] 97 U/L Normal 38-113 [facility] Comment on above: Order Comment: Speci men Type: BLOOD SPECIMENOrdering Facility: [facility] Address: [address] [place] [address] Performed By: #### 1 9123-9, 87365-6 ####[facility] LABCLIA [id number] [place] [address] ALT [Catalytic activity/Vol] 9 U/L Low 10-54 [facility] Comment on above: Order Comment: Speci men Type: BLOOD SPECIMENOrdering Facility: [facility] Address: [address] [place] [address] Performed By: #### 1 9123-9, 68255-4 ####[facility] LABCLIA [id number] [place] [address] Anion gap [Moles/Vol] 10 mmol/L Normal 9-18 [facility] Comment on above: Order Comment: Speci men Type: BLOOD SPECIMENOrdering Facility: [facility] Address: [address] [place] [address] Performed By: #### 1 9123-9, 30289-4 ####[facility] LABCLIA [id number] [place] [address] AST [Catalytic activity/Vol] 11 U/L Low 14-40 [facility] Comment on above: Order Comment: Speci men Type: BLOOD SPECIMENOrdering Facility: [facility] Address: [address] [address] Performed By: #### 1 9123-9, ####[facility] LABIA [id number] [place] [address] Bilirubin [Mass/Vol] 0.4 mg/dL Normal 0.2-1.3 [facility] Comment on above: Order Comment: Speci men Type: BLOOD SPECIMENOrdering Facility: [facility] Address: [address] [address] Performed By: #### 1 91239, ####[facility] LABIA [id number] [place] [address] Calcium [Mass/Vol] 9.3 mg/dL Normal 8.5-10.2 [facility] Comment on above: Order Comment: Speci men Type: BLOOD SPECIMENOrdering Facility: [facility] Address: [address] [address] Performed By: #### 1 239, ####[facility] LABIA [id number] [place] [address] Chloride [Moles/Vol] 109 mmol/L High 97-105 [facility] Comment on above: Order Comment: Speci men Type: BLOOD SPECIMENOrdering Facility: [facility] Address: [address] [address] Performed By: #### 1 239, ####[facility] LABIA [id number] [place] [address] CO2 [Moles/Vol] 26 mmol/L Normal 22-30 [facility] Comment on above: Order Comment: Speci men Type: BLOOD SPECIMENOrdering Facility: [facility] Address: [address] [address] Performed By: #### 1 239, 19287-1 ####[facility] LABCLIA [id number] [place] [address] Creatinine [Mass/Vol] 1.14 mg/dL Normal 0.73-1.22 [facility] Comment on above: Order Comment: Nazario brooks Type: BLOOD SPECIMENOrdering Facility: [facility] Address: [address] [phone] Performed By: #### 1 9123-9, ####[facility] LABCLIA [id number] [place] [address] Creatinine and Glomerular filtration rate.predicted panel (S/P/Bld) 69 mL/min/1.73m??? Normal >=60 [facility] Comment on above: Order Comment: Nazario brooks Type: BLOOD SPECIMENOrdering Facility: [facility] Address: [address] [place] [address] Result Comment: Rebekah mated Glomerular Filtration Rate [...] accurately reflect actual GFR. Performed By: #### 1 9123-9, ####[facility] LABCLIA [id number] [place] [address] Glucose [Mass/Vol] 90 mg/dL Normal 74-99 [facility] Comment on above: Order Comment: Nazario brooks Type: BLOOD SPECIMENOrdering Facility: [facility] Address: [address] [phone] Result Comment: The [place] [employer] (ADA) provides guidance for cutoff [...] Standards of Medical Care in Diabetes 2016, [place] [employer]. Diabetes Care. 2016.39(Suppl 1). Performed By: #### 1 9123-9, ####[facility] LABCLIA [id number] [place] [address] Potassium [Moles/Vol] 3.9 mmol/L Normal 3.7-5.1 [facility] Comment on above: Order Comment: Speci men Type: BLOOD SPECIMENOrdering Facility: [facility] Address: [address] [place] [address] Performed By: #### 1 91239, ####[facility] LABIA [id number] [place] [address] Protein [Mass/Vol] 6.1 g/dL Low 6.3-8.0 [facility] Comment on above: Order Comment: Speci men Type: BLOOD SPECIMENOrdering Facility: [facility] Address: [address] [place] [address] Performed By: #### 1 239, ####[facility] LABIA [id number] [place] [address] Sodium [Moles/Vol] 145 mmol/L High 136-144 [facility] Comment on above: Order Comment: Speci men Type: BLOOD SPECIMENOrdering Facility: [facility] Address: [address] [address] Performed By: #### 1 239, ####[facility] LABIA [id number] [place] [address] Urea nitrogen [Mass/Vol] 21 mg/dL Normal 9-24 [facility] Comment on above: Order Comment: Speci men Type: BLOOD SPECIMENOrdering Facility: [facility] Address: [place] [address] Performed By: #### 1 9123-9, 26518-8 ####[facility] LABCLIA [id number] [place] [address] Albumin [Mass/Vol] 3.9 g/dL 3.9 - 4.9 g/dL [facility] ALP [Catalytic activity/Vol] 97 U/L 38 - 113 U/L [facility] ALT [Catalytic activity/Vol] 9 U/L Low 10 - 54 U/L [facility] Anion gap [Moles/Vol] 10 mmol/L 9 - 18 mmol/L [facility] AST [Catalytic activity/Vol] 11 U/L Low 14 - 40 U/L [facility] Bilirubin [Mass/Vol] 0.4 mg/dL 0.2 - 1 .3 mg/dL [facility] Calcium [Mass/Vol] 9.3 mg/dL 8.5 - 10. 2 mg/dL [facility] Chloride [Moles/Vol] 109 mmol/L High 97 - 10 5 mmol/L [facility] CO2 [Moles/Vol] 26 mmol/L 22 - 30 mmol/L [facility] Creatinine [Mass/Vol] 1.14 mg/dL 0.73 - 1.22 mg/dL [facility] Estimated Glomerular Filtration Rate 69 mL/min/1.73m >=60 mL/min/1.73 m [facility] Glucose [Mass/Vol] 90 mg/dL 74 - 99 mg/dL [facility] Potassium [Moles/Vol] 3.9 mmol/L 3.7 - 5.1 mmol/L [facility] Protein [Mass/Vol] 6.1 g/dL Low 6.3 - 8.0 g/dL [facility] Sodium [Moles/Vol] 145 mmol/L High 136 - 144 mmol/L [facility] Urea nitrogen [Mass/Vol] 21 mg/dL 9 - 24 mg/dL [facility] MAGNESIUM BLDon 06-20-2023 Magnesium [Mass/Vol] 2.0 mg/dL 1.7 - 2 .3 mg/dL [facility] Magnesium SerPl-mCncon 06-20 Magnesium [Mass/Vol] 2.0 mg/dL Normal 1.7-2.3 [facility] Comment on above: Order Comment: Speci men Type: BLOOD SPECIMENOrdering Facility: [facility] Address: [address] [address] Performed By: #### 1 9123-9, 75454-6 ####[facility] LABCLIA [id number] [place] [address] CNPNon 06-19-2023 CNPN Normal [facility] PT - Home Exercise Programon 06-10-2023 PT - Home Exercise Program [id number]#1.00 CD:127 Normal [facility] Consultation Noteon 06-07-20 Consultation Note [id number]#1.00C D:127 Normal [facility] Operative Reporton Operative Report [id number]#1.00 CD:127 Normal [facility] PT - Home Exercise Programon 06-06-2023 PT - Home Exercise Program [id number]#1.00C D:127 Normal [facility] CEA BLDon 05-29-2023 Carcinoembryonic Ag [Mass/Vol] 2.2 ng/mL <=2.9 ng/mL [facility] CBC W Auto Differential pane l (Bld)on 05-28-2023 Basophils (Bld) [#/Vol] 0.04 10*3/uL Normal <0.11 [facility] Comment on above: Order Comment: Speci men Type: BLOOD SPECIMENOrdering Facility: [facility] Address: [address] [phone] Performed By: #### 5 7021-8 ####[facility] LABCLIA [id number] [place] [address] Basophils/100 WBC (Bld) 0.4 % Normal [facility] Comment on above: Order Comment: Speci men Type: BLOOD SPECIMENOrdering Facility: [facility] Address: [address] [address] Performed By: #### 5 7021-8 ####[facility] LABCLIA [id number] [place] [address] Differential cell count method Nom (Bld) Auto Normal [facility] Comment on above: Order Comment: Speci men Type: BLOOD SPECIMENOrdering Facility: [facility] Address: [address] [place] [address] Performed By: #### 5 7021-8 ####[facility] LABCLIA [id number] [place] [address] Eosinophils (Bld) [#/Vol] 0.16 10*3/uL Normal <0.46 [facility] Comment on above: Order Comment: Speci men Type: BLOOD SPECIMENOrdering Facility: [facility] Address: [address] [place] [address] Performed By: #### 5 7021-8 ####[facility] LABCLIA [id number] [place] [address] Eosinophils/100 WBC (Bld) 1.7 % Normal [facility] Comment on above: Order Comment: Speci men Type: BLOOD SPECIMENOrdering Facility: [facility] Address: [address] [place] [address] Performed By: #### 5 7021-8 ####[facility] LABCLIA [id number] [place] [address] Erythrocyte distribution width (RBC) [Ratio] 17.1 % High 11.5-15.0 [facility] Comment on above: Order Comment: Speci men Type: BLOOD SPECIMENOrdering Facility: [facility] Address: [address] [place] [address] Performed By: #### 5 7021-8 ####[facility] LABCLIA [id number] [place] [address] Hematocrit (Bld) [Volume fraction] 37.7 % Low 39.0-51.0 [facility] Comment on above: Order Comment: Speci men Type: BLOOD SPECIMENOrdering Facility: [facility] Address: [address] [place] [address] Performed By: #### 5 7021-8 ####[facility] LABCLIA [id number] [place] [address] Hemoglobin (Bld) [Mass/Vol] 12.2 g/dL Low 13.0-17.0 [facility] Comment on above: Order Comment: Speci men Type: BLOOD SPECIMENOrdering Facility: [facility] Address: [address] [place] [address] Performed By: #### 5 7021-8 ####[facility] LABIA [id number] [place] [address] Immature granulocytes (Bld) [#/Vol] 0.05 10*3/uL Normal <0.10 [facility] Comment on above: Order Comment: Speci men Type: BLOOD SPECIMENOrdering Facility: [facility] Address: [address] [place] [address] Performed By: #### 5 7021-8 ####[facility] LABIA [id number] [place] [address] Immature granulocytes/100 WBC (Bld) 0.5 % Normal [facility] Comment on above: Order Comment: Speci men Type: BLOOD SPECIMENOrdering Facility: [facility] Address: [address] [place] [address] Performed By: #### 5 7021-8 ####[facility] LABIA [id number] [place] [address] Lymphocytes (Bld) [#/Vol] 0.65 10*3/uL Low 1.00-4.00 [facility] Comment on above: Order Comment: Speci men Type: BLOOD SPECIMENOrdering Facility: [facility] Address: [address] [place] [address] Performed By: #### 5 7021-8 ####[facility] LABCLIA [id number] [place] [address] Lymphocytes/100 WBC (Bld) 6.8 % Normal [facility] Comment on above: Order Comment: Speci men Type: BLOOD SPECIMENOrdering Facility: [facility] Address: [address] [place] [address] Performed By: #### 5 7021-8 ####[facility] LABCLIA [id number] [place] [address] MCH (RBC) [Entitic mass] 32.3 pg Normal 26.0-34.0 [facility] Comment on above: Order Comment: Speci men Type: BLOOD SPECIMENOrdering Facility: [facility] Address: [address] [place] [address] Performed By: #### 5 7021-8 ####[facility] LABIA [id number] [place] [address] MCHC (RBC) [Mass/Vol] 32.4 g/dL Normal 30.5-36.0 [facility] Comment on above: Order Comment: Speci men Type: BLOOD SPECIMENOrdering Facility: [facility] Address: [address] [place] [address] Performed By: #### 5 7021-8 ####[facility] LABCLIA [id number] [place] [address] MCV (RBC) [Entitic vol] 99.7 fL Normal 80.0-100.0 [facility] Comment on above: Order Comment: Speci men Type: BLOOD SPECIMENOrdering Facility: [facility] Address: [address] [place] [address] Performed By: #### 5 7021-8 ####[facility] LABIA [id number] [place] [address] Monocytes (Bld) [#/Vol] 0.71 10*3/uL Normal <0.87 [facility] Comment on above: Order Comment: Speci men Type: BLOOD SPECIMENOrdering Facility: [facility] Address: [address] [address] Performed By: #### 5 7021-8 ####[facility] LABCLIA [id number] [place] [address] Monocytes/100 WBC (Bld) 7.4 % Normal [facility] Comment on above: Order Comment: Speci men Type: BLOOD SPECIMENOrdering Facility: [facility] Address: [address] [address] Performed By: #### 5 7021-8 ####[facility] LABCLIA [id number] [place] [address] Neutrophils (Bld) [#/Vol] 7.93 10*3/uL High 1.45-7.50 [facility] Comment on above: Order Comment: Speci men Type: BLOOD SPECIMENOrdering Facility: [facility] Address: [address] [address] Performed By: #### 5 7021-8 ####[facility] LABCLIA [id number] [place] [address] Neutrophils/100 WBC (Bld) 83.2 % Normal [facility] Comment on above: Order Comment: Speci men Type: BLOOD SPECIMENOrdering Facility: [facility] Address: [address] Performed By: #### 5 7021-8 ####[facility] LABCLIA [id number] [place] [address] Nucleated RBC (Bld) [#/Vol] 10*3/uL Normal <0.01 [facility] Comment on above: Order Comment: Speci men Type: BLOOD SPECIMENOrdering Facility: [facility] Address: [address] [address] Performed By: #### 5 7021-8 ####[facility] LABCLIA [id number] [place] [address] Nucleated RBC/100 WBC (Bld) [Ratio] 0.0 /100 WBC Normal [facility] Comment on above: Order Comment: Speci men Type: BLOOD SPECIMENOrdering Facility: [facility] Address: [address] [place] [address] Performed By: #### 5 7021-8 ####[facility] LABIA [id number] [place] [address] Platelet mean volume (Bld) [Entitic vol] 10.1 fL Normal 9.0-12.7 [facility] Comment on above: Order Comment: Speci men Type: BLOOD SPECIMENOrdering Facility: [facility] Address: [address] [place] [address] Performed By: #### 5 7021-8 ####[facility] LABIA [id number] [place] [address] Platelets (Bld) [#/Vol] 206 10*3/uL Normal 150-400 [facility] Comment on above: Order Comment: Speci men Type: BLOOD SPECIMENOrdering Facility: [facility] Address: [address] [place] [address] Performed By: #### 5 7021-8 ####[facility] LABIA [id number] [place] [address] RBC (Bld) [#/Vol] 3.78 10*6/uL Low 4.20-6.00 [facility] Comment on above: Order Comment: Speci men Type: BLOOD SPECIMENOrdering Facility: [facility] Address: [address] [place] [address] Performed By: #### 5 7021-8 ####[facility] LABIA [id number] [place] [address] WBC (Bld) [#/Vol] 9.54 10*3/uL Normal 3.70-11.00 [facility] Comment on above: Order Comment: Speci men Type: BLOOD SPECIMENOrdering Facility: [facility] Address: [place] [address] Performed By: #### 5 7021-8 ####[facility] LABCLIA [id number] [place] [address] Basophils (Bld) [#/Vol] 0.04 10*3/uL <0.11 k/uL [facility] Basophils/100 WBC (Bld) 0.4 % [facility] Differential cell count method Nom (Bld) Auto [facility] Eosinophils (Bld) [#/Vol] 0.16 10*3/uL <0.46 k/uL [facility] Eosinophils/100 WBC (Bld) 1.7 % [facility] Erythrocyte distribution width (RBC) [Ratio] 17.1 % High 11.5 - 15.0 % [facility] Hematocrit (Bld) [Volume fraction] 37.7 % Low 39.0 - 51.0 % [facility] Hemoglobin (Bld) [Mass/Vol] 12.2 g/dL Low 13.0 - 17.0 g/dL [facility] Immature granulocytes (Bld) [#/Vol] 0.05 10*3/uL <0.10 k/uL [facility] Immature granulocytes/100 WBC (Bld) 0.5 % [facility] Lymphocytes (Bld) [#/Vol] 0.65 10*3/uL Low 1.00 - 4.00 k/uL [facility] Lymphocytes/100 WBC (Bld) 6.8 % [facility] MCH (RBC) [Entitic mass] 32.3 pg 26.0 - 34.0 pg [facility] MCHC (RBC) [Mass/Vol] 32.4 g/dL 30.5 - 36.0 g/dL [facility] MCV (RBC) [Entitic vol] 99.7 fL 80.0 - 100.0 fL [facility] Monocytes (Bld) [#/Vol] 0.71 10*3/uL <0.87 k/uL [facility] Monocytes/100 WBC (Bld) 7.4 % [facility] Neutrophils (Bld) [#/Vol] 7.93 10*3/uL High 1.45 - 7.50 k/uL [facility] Neutrophils/100 WBC (Bld) 83.2 % [facility] Nucleated RBC (Bld) [#/Vol] <0.01 k/uL [facility] Nucleated RBC/100 WBC (Bld) [Ratio] 0.0 /100 WBC [facility] Platelet mean volume (Bld) [Entitic vol] 10.1 fL 9.0 - 12.7 fL [facility] Platelets (Bld) [#/Vol] 206 10*3/uL 150 - 400 k/uL [facility] RBC (Bld) [#/Vol] 3.78 10*6/uL Low 4.20 - 6.0 0 m/uL [facility] WBC (Bld) [#/Vol] 9.54 10*3/uL 3.70 - 11.00 k/uL [facility] CEA SerPl-mCncon 05-28-2023 Carcinoembryonic Ag [Mass/Vol] 2.2 ng/mL Normal <=2.9 [facility] Comment on above: Order Comment: Speci men Type: BLOOD SPECIMENOrdering Facility: [facility] Address: [address] [address] Result Comment: Carc inoembryonic antigen test is used as an aid in monitoring response to treatment or recurrence in patients with established colorectal, breast, lung, prostatic, pancreatic, and ovarian carcinomas. Clinical correlation is required.The Carcinoembryonic antigen test was performed using the [employer] Un[employer] DXI paramagnetic particle chemiluminescent immunoassay method. Results obtained with different assay methods or kits cannot be used interchangeably. Performed By: #### 2 039-6 ####[facility] LABCLIA [id number] [address] OF [place] CNOVSPon 05-28-2023 CNOVSP Normal [facility] Comprehensive metabolic 2000 panelon 05-28-2023 Albumin [Mass/Vol] 3.8 g/dL Low 3.9-4.9 [facility] Comment on above: Order Comment: Speci men Type: BLOOD SPECIMENOrdering Facility: [facility] Address: [address] [phone] Performed By: #### 2 4323-8 ####[facility] LABCLIA [id number] [place] [address] ALP [Catalytic activity/Vol] 93 U/L Normal 38-113 [facility] Comment on above: Order Comment: Speci men Type: BLOOD SPECIMENOrdering Facility: [facility] Address: [address] [place] [address] Performed By: #### 2 4323-8 ####[facility] LABCLIA [id number] [place] [address] ALT [Catalytic activity/Vol] 9 U/L Low 10-54 [facility] Comment on above: Order Comment: Speci men Type: BLOOD SPECIMENOrdering Facility: [facility] Address: [address] [place] [address] Performed By: #### 2 4323-8 ####[facility] LABCLIA [id number] [place] [address] Anion gap [Moles/Vol] 9 mmol/L Normal 9-18 [facility] Comment on above: Order Comment: Speci men Type: BLOOD SPECIMENOrdering Facility: [facility] Address: [address] [place] [address] Performed By: #### 2 4323-8 ####[facility] LABCLIA [id number] [place] [address] AST [Catalytic activity/Vol] 15 U/L Normal 14-40 [facility] Comment on above: Order Comment: Speci men Type: BLOOD SPECIMENOrdering Facility: [facility] Address: [address] [place] [address] Performed By: #### 2 4323-8 ####[facility] LABCLIA [id number] [place] [address] Bilirubin [Mass/Vol] 0.4 mg/dL Normal 0.2-1.3 [facility] Comment on above: Order Comment: Speci men Type: BLOOD SPECIMENOrdering Facility: [facility] Address: [address] [address] Performed By: #### 2 4323-8 ####[facility] LABCLIA [id number] [place] [address] Calcium [Mass/Vol] 9.3 mg/dL Normal 8.5-10.2 [facility] Comment on above: Order Comment: Speci men Type: BLOOD SPECIMENOrdering Facility: [facility] Address: [address] [address] Performed By: #### 2 4323-8 ####[facility] LABCLIA [id number] [place] [address] Chloride [Moles/Vol] 105 mmol/L Normal 97-105 [facility] Comment on above: Order Comment: Speci men Type: BLOOD SPECIMENOrdering Facility: [facility] Address: [address] [address] Performed By: #### 2 4323-8 ####[facility] LABCLIA [id number] [place] [address] CO2 [Moles/Vol] 27 mmol/L Normal 22-30 [facility] Comment on above: Order Comment: Speci men Type: BLOOD SPECIMENOrdering Facility: [facility] Address: [address] [address] Performed By: #### 2 4323-8 ####[facility] LABCLIA [id number] [place] [address] Creatinine [Mass/Vol] 1.12 mg/dL Normal 0.73-1.22 [facility] Comment on above: Order Comment: Speci men Type: BLOOD SPECIMENOrdering Facility: [facility] Address: [address] [place] [address] Performed By: #### 2 4323-8 ####[facility] LABCLIA [id number] [place] [address] ESTIMATED GLOMERULAR FILTRATION RATE 71 mL/min/1.73m??? Normal >=60 [facility] Comment on above: Order Comment: Nazario brooks Type: BLOOD SPECIMENOrdering Facility: [facility] Address: [address] [id number] Result Comment: Rebekah mated Glomerular Filtration Rate [...] actual GFR. Performed By: #### 2 4323-8 ####[facility] LABCLIA [id number] [place] [address] Glucose [Mass/Vol] 86 mg/dL Normal 74-99 [facility] Comment on above: Order Comment: Nazario brooks Type: BLOOD SPECIMENOrdering Facility: [facility] Address: [address] [address] Result Comment: The [employer] (ADA) provides guidance for cutoff [...] Standards of Medical Care in Diabetes 2016, [employer]. Diabetes Care. 2016.39(Suppl 1). Performed By: #### 2 4323-8 ####[facility] LABCLIA [id number] [place] [address] Potassium [Moles/Vol] 3.8 mmol/L Normal 3.7-5.1 [facility] Comment on above: Order Comment: Nazario brooks Type: BLOOD SPECIMENOrdering Facility: [facility] Address: [address] [address] Performed By: #### 2 4323-8 ####[facility] LABCLIA [id number] [place] [address] Protein [Mass/Vol] 6.1 g/dL Low 6.3-8.0 [facility] Comment on above: Order Comment: Speci men Type: BLOOD SPECIMENOrdering Facility: [facility] Address: [address] [address] Performed By: #### 2 4323-8 ####[facility] LABCLIA [id number] [place] [address] Sodium [Moles/Vol] 141 mmol/L Normal 136-144 [facility] Comment on above: Order Comment: Speci men Type: BLOOD SPECIMENOrdering Facility: [facility] Address: [address] [address] Performed By: #### 2 4323-8 ####[facility] LABCLIA [id number] [place] [address] Urea nitrogen [Mass/Vol] 19 mg/dL Normal 9-24 [facility] Comment on above: Order Comment: Speci men Type: BLOOD SPECIMENOrdering Facility: [facility] Address: [address] [address] Performed By: #### 2 4323-8 ####[facility] LABCLIA [id number] [place] [address] Albumin [Mass/Vol] 3.8 g/dL Low 3.9 - 4.9 g/dL [facility] ALP [Catalytic activity/Vol] 93 U/L 38 - 113 U/L [facility] ALT [Catalytic activity/Vol] 9 U/L Low 10 - 54 U/L [facility] Anion gap [Moles/Vol] 9 mmol/L 9 - 18 mmol/L [facility] AST [Catalytic activity/Vol] 15 U/L 14 - 40 U/L [facility] Bilirubin [Mass/Vol] 0.4 mg/dL 0.2 - 1 .3 mg/dL [facility] Calcium [Mass/Vol] 9.3 mg/dL 8.5 - 10. 2 mg/dL [facility] Chloride [Moles/Vol] 105 mmol/L 97 - 10 5 mmol/L [facility] CO2 [Moles/Vol] 27 mmol/L 22 - 30 mmol/L [facility] Creatinine [Mass/Vol] 1.12 mg/dL 0.73 - 1.22 mg/dL [facility] Estimated Glomerular Filtration Rate 71 mL/min/1.73m >=60 mL/min/1.73 m [facility] Glucose [Mass/Vol] 86 mg/dL 74 - 99 mg/dL [facility] Potassium [Moles/Vol] 3.8 mmol/L 3.7 - 5.1 mmol/L [facility] Protein [Mass/Vol] 6.1 g/dL Low 6.3 - 8.0 g/dL [facility] Sodium [Moles/Vol] 141 mmol/L 136 - 144 mmol/L [facility] Urea nitrogen [Mass/Vol] 19 mg/dL 9 - 24 mg/dL [facility] PT - Assessmentson PT - Assessments [id number]#1.00 CD:127 Normal [facility] PT - Consentson 05-24-2023 PT - Consents [id number]#1.00 CD:127 [facility] PT - Home Exercise Programon 05-24-2023 PT - Home Exercise Program [id number]#1.00 CD:127 Normal [facility] PT - Orderson 05-24-2023 PT - Orders [id number]#1.00 CD:127 Normal [facility] MR cervical spine wo/w conon 05-23-2023 MR cervical spine wo/w con [place] [id number] MRI Report Signed Patient: Mervat Damon MR#: [id number] : 1950 Acct:[id number] Age/Sex: 72 / M ADM Date: 05/22/23 Loc: MR Room: Type: [facility] Attending Dr: Valencia ONEAL Copies to: [...] Brett Crowley M.D.05/23/2023 12:40 PM Dictation Location: [place] [address] Transcribed By: [facility] 05/23/23 1240 Dictated By: Brett Crowley II, MD 05/23/23 1228 Signed By: 05/23/23 1240 Normal [facility] MR cervical spine wo/w con [facility] [employer] Other MR cervical spine wo/w con [facility] [employer] Other MR cervical spine wo/w con [address] [place] [address] [employer] Other MR cervical spine wo/[place] [address] [employer] Other MR cervical spine wo/w con MRI Report [facility] Other MR cervical spine wo/w con Signed [facility] Other MR cervical spine wo/w con Patient: Mervat Damon MR#: [id number] [facility] Other MR cervical spine wo/w con 4313 [employer] Other MR cervical spine wo/w con : 1950 Acct:[id number] [employer] Other MR cervical spine wo/w con Age/Sex: 72 / M ADM Date: 05/22/23 [facility] Other MR cervical spine wo/w con Loc: MR Room: Type: [facility] [employer] Other MR cervical spine wo/w con Attending Dr: Valencia Torres [employer] Other MR cervical spine wo/w con Copies to: Valencia Torres [employer] Other MR cervical spine wo/w con Ordering Provider: Valencia Torres [employer] [facility] Other MR cervical spine wo/w con Date of Service: 05/22/23 [facility] Other MR cervical spine wo/w con MR/MR cervical spine wo/w con: M54.12 [facility] Other MR cervical spine wo/w con MR cervical spine wo/w con 05/22/2023 9:21 PM [employer] Other MR cervical spine wo/w con SIGNS AND SYMPTOMS: Neck pain, stiffness, history of colorectal cancer [facility] Other MR cervical spine wo/w con PROTOCOL: Multiplanar multisequence MR images of the cervical spine were obtained with and without [facility] Other MR cervical spine wo/w con IV contrast [facility] Other MR cervical spine wo/w con CONTRAST: 20 mL of intravenous ProHance [facility] Other MR cervical spine wo/w con COMPARISON: 03/18/2023 and 10/20/2015 [facility] Other MR cervical spine wo/w con FINDINGS: The bones of the cervical spine are in anatomic alignment. There is preservation of [employer] Other MR cervical spine wo/w con vertebral body heights. There is intervertebral fusion at C4-C5 with anterior fusion from C5 through [facility] Other MR cervical spine wo/w con C7. This is unchanged. The marrow signal is within normal limits. The cord is normal in signal. No [facility] Other MR cervical spine wo/w con epidural or paraspinous fluid collection is appreciated. The visualized paraspinous soft tissues are [facility] Other MR cervical spine wo/w con within normal limits. The prevertebral soft tissues are within normal limits. [facility] Other MR cervical spine wo/w con At C2-C3: There is uncovertebral joint spurring and uncovertebral joint spurring. There is mild to [facility] Other MR cervical spine wo/w con moderate left neural foraminal narrowing without spinal canal narrowing. [facility] Other MR cervical spine wo/w con At C3-C4: There is a broad-based disc bulge with facet and negative joint degenerative change [employer] Other MR cervical spine wo/w con contributing to moderate bilateral neural foraminal narrowing with mild spinal canal narrowing. [employer] Other MR cervical spine wo/w con These changes are slightly worse when compared to the previous MRI. [facility] Other MR cervical spine wo/w con At C4-C5: There is intervertebral fusion with uncovertebral joint spurring and facet hypertrophy. [employer] Other MR cervical spine wo/w con There is moderate severe left and mild right neural foraminal narrowing. This mild spinal canal [facility] Other MR cervical spine wo/w con narrowing. There has been improvement in spinal canal stenosis since the previous MRI. [employer] Other MR cervical spine wo/w con At C5-C6: There is uncovertebral joint spurring and facet hypertrophy with moderate bilateral neural [employer] Other MR cervical spine wo/w con foraminal narrowing. No significant spinal canal narrowing. [employer] Other MR cervical spine wo/w con At C6-C7: There is a broad-based disc bulge with facet and uncovertebral joint degenerative change [employer] Other MR cervical spine wo/w con contributing to severe bilateral neural foraminal narrowing with mild spinal canal narrowing. [employer] Other MR cervical spine wo/w con At C7-T1: Facet hypertrophy is present bilaterally contributing to moderate bilateral neural [employer] Other MR cervical spine wo/w con foraminal narrowing. There is no significant spinal canal narrowing. [employer] Other MR cervical spine wo/w con MR/MR cervical spine wo/w con [facility] Other MR cervical spine wo/w con IMPRESSION: [employer] Other MR cervical spine wo/w con No cord compression or cord signal abnormality. [employer] Other MR cervical spine wo/w con No abnormal postcontrast enhancement. [employer] Other MR cervical spine wo/w con Significant multilevel disc, facet, and uncovertebral joint degenerative change contributing to [employer] Other MR cervical spine wo/w con varying degrees of spinal canal and neural foraminal narrowing, as detailed above. [employer] Other MR cervical spine wo/w con Impression dictated by: Brett Crowley M.D.05/23/2023 12:40 PM [employer] Other MR cervical spine wo/w con Dictation Location: [place] [address] [employer] Other MR cervical spine wo/w con Transcribed By: SOLIS 05/23/23 [facility] [employer] Other MR cervical spine wo/w con Dictated By: Brett Crowley II, MD 05/23/23 1228 [employer] Other MR cervical spine wo/w con Signed By: [employer] Other MR cervical spine wo/w con 05/23/23 [facility] [employer] Other PT - Orderson 05-23-2023 PT - Orders [id number]#1.00C D:127 Normal [facility] Creatinine (Bld) [Mass/Vol]O rdered By: Valencia Torres on 05-22-2023 Creatinine [Mass/Vol] 1.3 mg/dL 0.6-1.3 [facility] Comment on above: ER/ESD physician is [...] mGy = na DAP = na Normal [facility] Consent for Treatmenton 04-21 Consent for Treatment [id number]#1.00C D:127 Normal [facility] Physician Orderon 05-17-2023 Physician Order [id number]#1.00 CD:127 Normal [facility] Consent for Procedure/Surger yon 05-15-2023 Consent for Procedure/Surgery [id number]#1.00C D:127 Normal [facility] Basic metabolic 2000 panelon 07-25-2023 Anion gap [Moles/Vol] 7 mmol/L Low 9-18 [facility] Comment on above: Order Comment: Speci men Type: BLOOD SPECIMENOrdering Facility: [facility] Address: [address] [address] Performed By: #### 2 4321-2 ####[facility] LABCLIA [id number] [place] [address] Calcium [Mass/Vol] 9.3 mg/dL Normal 8.5-10.2 [facility] Comment on above: Order Comment: Speci men Type: BLOOD SPECIMENOrdering Facility: [facility] Address: [address] [address] Performed By: #### 2 4321-2 ####[facility] LABCLIA [id number] [place] [address] Chloride [Moles/Vol] 105 mmol/L Normal 97-105 [facility] Comment on above: Order Comment: Speci men Type: BLOOD SPECIMENOrdering Facility: [facility] Address: [address] [address] Performed By: #### 2 4321-2 ####[facility] LABCLIA [id number] [place] [address] CO2 [Moles/Vol] 28 mmol/L Normal 22-30 [facility] Comment on above: Order Comment: Speci men Type: BLOOD SPECIMENOrdering Facility: [facility] Address: [address] [address] Performed By: #### 2 4321-2 ####[facility] LABCLIA [id number] [place] [address] Creatinine [Mass/Vol] 1.08 mg/dL Normal 0.73-1.22 [facility] Comment on above: Order Comment: Speci men Type: BLOOD SPECIMENOrdering Facility: [facility] Address: [address] [address] Performed By: #### 2 4321-2 ####[facility] LABCLIA [id number] [place] [address] ESTIMATED GLOMERULAR FILTRATION RATE 74 mL/min/1.73m??? Normal >=60 [facility] Comment on above: Order Comment: Nazario brooks Type: BLOOD SPECIMENOrdering Facility: [facility] Address: [address] [place] [address] Result Comment: Rebekah mated Glomerular Filtration Rate [...] actual GFR. Performed By: #### 2 4321-2 ####[facility] LABCLIA [id number] [place] [address] Glucose [Mass/Vol] 106 mg/dL High 74-99 [facility] Comment on above: Order Comment: Speci men Type: BLOOD SPECIMENOrdering Facility: [facility] Address: [address] [place] [address] Result Comment: The [place] [employer] (ADA) provides guidance for cutoff [...] Standards of Medical Care in Diabetes 2016, [place] [employer]. Diabetes Care. 2016.39(Suppl 1). Performed By: #### 2 4321-2 ####[facility] LABCLIA [id number] [place] [address] Potassium [Moles/Vol] 3.8 mmol/L Normal 3.7-5.1 [facility] Comment on above: Order Comment: Speci men Type: BLOOD SPECIMENOrdering Facility: [facility] Address: [address] [address] Performed By: #### 2 4321-2 ####[facility] LABCLIA [id number] [place] [address] Sodium [Moles/Vol] 140 mmol/L Normal 136-144 [facility] Comment on above: Order Comment: Speci men Type: BLOOD SPECIMENOrdering Facility: [facility] Address: [address] [address] Performed By: #### 2 4321-2 ####[facility] LABCLIA [id number] [place] [address] Urea nitrogen [Mass/Vol] 22 mg/dL Normal 9-24 [facility] Comment on above: Order Comment: Speci men Type: BLOOD SPECIMENOrdering Facility: [facility] Address: [address] [address] Performed By: #### 2 4321-2 ####[facility] LABCLIA [id number] [place] [address] Anion gap [Moles/Vol] 7 mmol/L Low 9 - 18 mmol/L [facility] Calcium [Mass/Vol] 9.3 mg/dL 8.5 - 10. 2 mg/dL [facility] Chloride [Moles/Vol] 105 mmol/L 97 - 10 5 mmol/L [facility] CO2 [Moles/Vol] 28 mmol/L 22 - 30 mmol/L [facility] Creatinine [Mass/Vol] 1.08 mg/dL 0.73 - 1.22 mg/dL [facility] Estimated Glomerular Filtration Rate 74 mL/min/1.73m >=60 mL/min/1.73 m [facility] Glucose [Mass/Vol] 106 mg/dL High 74 - 99 mg/dL [facility] Potassium [Moles/Vol] 3.8 mmol/L 3.7 - 5.1 mmol/L [facility] Sodium [Moles/Vol] 140 mmol/L 136 - 144 mmol/L [facility] Urea nitrogen [Mass/Vol] 22 mg/dL 9 - 24 mg/dL [facility] CNPNon 05-14-2023 CNPN Normal [facility] Consent for Treatmenton 04-20 Consent for Treatment [id number]#1.00 CD:127 Normal [facility] Consultation Noteon 05-07-20 Consultation Note Patient: MERVAT [...] a 1/10 on the visual analog scale. MERHAN is 30. Has not had physical therapy. [...] cap(s), Oral, Daily hydrocortisone Top 2.5% [facility] [place] 325 mg-5 mg oral tablet 1 tab(s), PRN, Oral, q6hr ondansetron 4 mg Tab 8 mg = 2 tab(s), PRN, Oral, q8hr predniSONE 5 mg Tab 5 mg = 1 tab(s), Oral, Daily prochlorperazine 10 mg Tab valsartan 80 mg Tab 80 mg = 1 tab(s), Oral, Daily Vitamin C 1,000 mg, Oral, Daily Problem list: All Problems BMI 31.0-31.9,adult / SNOMED CT 581786812 / Confirmed BPH with urinary obstruction / SNOMED CT 8221990381 / Confirmed Bulging of cervical intervertebral disc / SNOMED CT 4121748894 / Confirmed Cervical spinal stenosis / SNOMED CT 667278331 / Confirmed Erectile dysfunction / SNOMED CT 5133401073 / Confirmed Hammertoe / SNOMED CT 611467683 / Confirmed Inguinal hernia, right / SNOMED CT 376714320 / Confirmed Neck pain without injury / SNOMED CT 271477252 / Confirmed Non-ischemic cardiomyopathy / SNOMED CT 489169342 / Confirmed RA - Rheumatoid arthritis / SNOMED CT 4130460820 / Confirmed Rectal cancer / SNOMED CT 936339997 / Confirmed Tobacco non-user / SNOMED CT 311101255 / Confirmed Histories Past Medical History: Active RA - Rheumatoid arthritis (6962400278) Cervical spinal stenosis (523393179) Family History: Primary malignant neoplasm of bladder Father Cancer...... Mother Comments: 07/07/2018 12:11 EDT - Paulette Shah RN Pancreatic Sister Comments: 07/07/2018 12:11 EDT - Paulette Shah RN liver Procedure history: Sigmoidoscopy ([id number]) on 08/20/2022 at 71 Years. Cataract extraction and insertion of intraocular lens (2413804652) on 02/24/2019 at 68 Years. Comments: 02/24/2019 17:10 EDT - Naseem VAUGHAN, Kathie R left Right eye cataract extraction and insertion of intraocular lens ([id number]) on 02/12/2019 at 68 Years. Laparoscopic repair of inguinal hernia (32748270) on 01/01/2018 at 67 Years. Comments: 01/01/2018 18:31 EDT Mayra Alexandra RN, Vanessa Dahl ROBOTIC ASSISTED RIGHT INGUINAL HERNIA REPAIR WITH MESH LT STENT ([id number]) on 05/23/2016 at 65 Years. LT ESWL ([id number]) on 03/22/2016 at 65 Years. Comments: 04/04/2019 8:10 Jennie Palomino MA 01/05/2016, 03/08/2016 RT ESWL ([id number]) on 12/22/2015 at 65 Years. Comments: 04/04/2019 8:09 Jennie Palomino MA 12/15/2015 Cystoscopy (87755538) on 09/28/2015 at 64 Years. Cervical spinal fusion x2 (797370801). Colonoscopy (758057159). Hammer toe operation (246967). Cervical spinal fusion (220315418). Hemorrhoidectomy (93091366). Social History Social & Psychosocial Habits Alcohol 12/12/2015 Risk Assessment: Denies Alcohol Use 08/29/2020 Type: Beer, Wine Has alcohol use interfered with work or home life? No Do you ever drink more than intended? No Has anyone been hurt or at risk by your drinking? 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 Normal [facility] Comment on above: Result Comment: Elec tronically Signed By: Anthony ARRINGTON, Bryon Matos\.br\Date and Time Signed: 05/07/23 14:20 EDT HIPAA Forms Officeon 023 HIPAA Forms Office [id number]#1.00 CD:127 Normal [facility] Legal Correspondence Officeo n 05-07-2023 Legal Correspondence Office [id number]#1.00 CD:127 Normal [facility] Legal Correspondence Office [id number]#1.00 CD:127 Normal [facility] Office/Clinic Note-Physician on 05-07-2023 Office/Clinic Note-Physician [id number]#1.00 CD:127 Normal [facility] Orders Officeon 05-07-2023 Orders Office [id number]#1.00 CD:127 Normal [facility] Patient Correspondenceon Patient Correspondence [id number]#1.00 CD:127 Normal [facility] Patient Correspondence [id number]#1.00 CD:127 Normal [facility] Patient Correspondence [id number]#1.00 CD:127 Normal [facility] Patient Correspondence [id number]#1.00 CD:127 Normal [facility] Patient Correspondence [id number]#1.00 CD:127 Normal [facility] Patient Correspondence [id number]#1.00 CD:127 Normal [facility] Patient History Officeon Patient History Office [id number]#1.00 CD:127 Normal [facility] Physician Orderon 05-07-2023 Physician Order [id number]#1.00 CD:127 Normal [facility] CNPNon 05-03-2023 CNPN Normal [facility] 05-01-2023 Outside Labs [id number]#1.00 CD:127 Normal [facility] Progress Note-Nurseon 2022 Progress Note-Nurse [id number]#1.00 CD:127 Normal [facility] Consent for Treatmenton 04-20 Consent for Treatment [id number]#1.00C D:127 Normal [facility] Heart and Vascular Office/Cl inic Noteon 04-29-2023 [...] intact- no rash or concerning lesions Procedure [facility]- 01/02/19 CONCLUSIONS: 1. Essentially normal coronary [...] BID, # 180 tab(s), Refills(s) 3, Pharmacy: [facility] #[id number], 188, cm, 04/29/23 8:41:00 EDT, Height/Length Dosing, 106.8, kg, 04/29/23 8:41:00 EDT, Weight Dosing hydrochlorothiazide, 12.5 mg = 1 cap(s), Oral, Daily, # 90 cap(s), Refills(s) 3, Pharmacy: [facility] #[id number], 188, cm, 04/29/23 8:41:00 EDT, Height/Length Dosing, 106.8, kg, 04/29/23 8:41:00 EDT, Weight Dosing valsartan, 80 mg = 1 tab(s), Oral, Daily, # 90 tab(s), Refills(s) 3, Pharmacy: [facility] #[id number], 188, cm, 04/29/23 8:41:00 EDT, Height/Length Dosing, 106.8, kg, 04/29/23 8:41:00 EDT, Weight Dosing Follow-up With When Contact Information Dilan ARRINGTON, Santiago Medina Within 6 months Additional Instructions: Call for sooner apt with new/worsening symptoms Patient Education Heart-Healthy Eating Plan, [id number] Problem List/Past Medical History Ongoing BMI 31.0-31.9,adult [...] renal calcu (more content not included)... Normal [facility] Comment on above: Result Comment: Elec tronically Signed By: Cyndee SANCHEZ CNP\.grace\Date and Time Signed: 04/29/23 09:36 EDT Patient [...] cheese. Wh (more content not included)... Normal [facility] Outside Records Officeon Outside Records Office [id number]#1.00 CD:127 Normal [facility] Referrals Officeon Referrals Office [id number]#1.00 CD:127 Normal [facility] MRI RECTUM WO/W IVCONon 06-2 MRI RECTUM WO/W IVCON * * *Final Report* * * DATE OF EXAM: Apr 18 2023 7:28PM [facility] 0754 - MRI RECTUM WO/W IVCON / [...] Outside rectal MRI, 09/11/2022 TECHNIQUE: Magnet: Siemens AltDrybar 1.5T scanner. Multiplanar MRI with multiple sequences [...] Apr 19 2023 7:18AM EST [id number] Normal [facility] CNPNon 04-17-2023 CNPN Normal [facility] Consultation Noteon 04-17-20 23 Consultation Note [id number]#1.00C D:127 Normal [facility] CBC W Auto Differential pane l (Bld)on 04-16-2023 Basophils (Bld) [#/Vol] 0.07 10*3/uL Normal <0.11 [facility] Comment on above: Order Comment: Speci men Type: BLOOD SPECIMENOrdering Facility: [facility] Address: [address] [place] [address] Performed By: #### 5 7021-8 ####[facility] [id number] [place] [address] Basophils/100 WBC (Bld) 0.8 % Normal [facility] Comment on above: Order Comment: Speci men Type: BLOOD SPECIMENOrdering Facility: [facility] Address: [address] [place] [address] Performed By: #### 5 7021-8 ####[facility] [id number] [place] [address] Differential cell count method Nom (Bld) Auto Normal [facility] Comment on above: Order Comment: Speci men Type: BLOOD SPECIMENOrdering Facility: [facility] Address: [address] [place] [address] Performed By: #### 5 7021-8 ####[facility] [id number] [place] [address] Eosinophils (Bld) [#/Vol] 0.14 10*3/uL Normal <0.46 [facility] Comment on above: Order Comment: Speci men Type: BLOOD SPECIMENOrdering Facility: [facility] Address: [address] [place] [address] Performed By: #### 5 7021-8 ####[facility] [id number] [place] [address] Eosinophils/100 WBC (Bld) 1.7 % Normal [facility] Comment on above: Order Comment: Speci men Type: BLOOD SPECIMENOrdering Facility: [facility] Address: [address] [place] [address] Performed By: #### 5 7021-8 ####[facility] [id number] [place] [address] Erythrocyte distribution width (RBC) [Ratio] 17.3 % High 11.5-15.0 [facility] Comment on above: Order Comment: Speci men Type: BLOOD SPECIMENOrdering Facility: [facility] Address: [address] [place] [address] Performed By: #### 5 7021-8 ####[facility] [id number] [place] [address] Hematocrit (Bld) [Volume fraction] 35.2 % Low 39.0-51.0 [facility] Comment on above: Order Comment: Speci men Type: BLOOD SPECIMENOrdering Facility: [facility] Address: [address] [place] [address] Performed By: #### 5 7021-8 ####[facility] [id number] [place] [address] Hemoglobin (Bld) [Mass/Vol] 11.3 g/dL Low 13.0-17.0 [facility] Comment on above: Order Comment: Speci men Type: BLOOD SPECIMENOrdering Facility: [facility] Address: [address] [place] [address] Performed By: #### 5 7021-8 ####[facility] [id number] [place] [address] Immature granulocytes (Bld) [#/Vol] 0.13 10*3/uL High <0.10 [facility] Comment on above: Order Comment: Speci men Type: BLOOD SPECIMENOrdering Facility: [facility] Address: [address] [place] [address] Performed By: #### 5 7021-8 ####[facility] [id number] [place] [address] Immature granulocytes/100 WBC (Bld) 1.6 % Normal [facility] Comment on above: Order Comment: Speci men Type: BLOOD SPECIMENOrdering Facility: [facility] Address: [address] [place] [address] Performed By: #### 5 7021-8 ####[facility] [id number] [place] [address] Lymphocytes (Bld) [#/Vol] 1.09 10*3/uL Normal 1.00-4.00 [facility] Comment on above: Order Comment: Speci men Type: BLOOD SPECIMENOrdering Facility: [facility] Address: [address] [place] [address] Performed By: #### 5 7021-8 ####[facility] [id number] [place] [address] Lymphocytes/100 WBC (Bld) 13.1 % Normal [facility] Comment on above: Order Comment: Speci men Type: BLOOD SPECIMENOrdering Facility: [facility] Address: [address] [address] Performed By: #### 5 7021-8 ####[facility] [id number] [place] [address] MCH (RBC) [Entitic mass] 31.9 pg Normal 26.0-34.0 [facility] Comment on above: Order Comment: Speci men Type: BLOOD SPECIMENOrdering Facility: [facility] Address: [address] [address] Performed By: #### 5 7021-8 ####[facility] [id number] [place] [address] MCHC (RBC) [Mass/Vol] 32.1 g/dL Normal 30.5-36.0 [facility] Comment on above: Order Comment: Speci men Type: BLOOD SPECIMENOrdering Facility: [facility] Address: [address] [address] Performed By: #### 5 7021-8 ####[facility] [id number] [place] [address] MCV (RBC) [Entitic vol] 99.4 fL Normal 80.0-100.0 [facility] Comment on above: Order Comment: Speci men Type: BLOOD SPECIMENOrdering Facility: [facility] Address: [address] [address] Performed By: #### 5 7021-8 ####[facility] [id number] [place] [address] Monocytes (Bld) [#/Vol] 0.75 10*3/uL Normal <0.87 [facility] Comment on above: Order Comment: Speci men Type: BLOOD SPECIMENOrdering Facility: [facility] Address: [address] [place] [address] Performed By: #### 5 7021-8 ####[facility] [id number] [place] [address] Monocytes/100 WBC (Bld) 9.0 % Normal [facility] Comment on above: Order Comment: Speci men Type: BLOOD SPECIMENOrdering Facility: [facility] Address: [address] [place] [address] Performed By: #### 5 7021-8 ####[facility] [id number] [place] [address] Neutrophils (Bld) [#/Vol] 6.14 10*3/uL Normal 1.45-7.50 [facility] Comment on above: Order Comment: Speci men Type: BLOOD SPECIMENOrdering Facility: [facility] Address: [address] [place] [address] Performed By: #### 5 7021-8 ####[facility] [id number] [place] [address] Neutrophils/100 WBC (Bld) 73.8 % Normal [facility] Comment on above: Order Comment: Speci men Type: BLOOD SPECIMENOrdering Facility: [facility] Address: [address] [place] [address] Performed By: #### 5 7021-8 ####[facility] [id number] [place] [address] Nucleated RBC (Bld) [#/Vol] 10*3/uL Normal <0.01 [facility] Comment on above: Order Comment: Speci men Type: BLOOD SPECIMENOrdering Facility: [facility] Address: [address] [place] [address] Performed By: #### 5 7021-8 ####[facility] [id number] [place] [address] Nucleated RBC/100 WBC (Bld) [Ratio] 0.0 /100 WBC Normal [facility] Comment on above: Order Comment: Speci men Type: BLOOD SPECIMENOrdering Facility: [facility] Address: [address] [address] Performed By: #### 5 7021-8 ####[facility] [id number] [place] [address] Platelet mean volume (Bld) [Entitic vol] 10.0 fL Normal 9.0-12.7 [facility] Comment on above: Order Comment: Speci men Type: BLOOD SPECIMENOrdering Facility: [facility] Address: [address] [place] [address] Performed By: #### 5 7021-8 ####[facility] [id number] [place] [address] Platelets (Bld) [#/Vol] 227 10*3/uL Normal 150-400 [facility] Comment on above: Order Comment: Speci men Type: BLOOD SPECIMENOrdering Facility: [facility] Address: [address] [place] [address] Performed By: #### 5 7021-8 ####[facility] [id number] [place] [address] RBC (Bld) [#/Vol] 3.54 10*6/uL Low 4.20-6.00 [facility] Comment on above: Order Comment: Speci men Type: BLOOD SPECIMENOrdering Facility: [facility] Address: [address] [place] [address] Performed By: #### 5 7021-8 ####[facility] [id number] [place] [address] WBC (Bld) [#/Vol] 8.32 10*3/uL Normal 3.70-11.00 [facility] Comment on above: Order Comment: Speci men Type: BLOOD SPECIMENOrdering Facility: [facility] Address: [address] [place] [address] Performed By: #### 5 7021-8 ####[facility] [id number] [place] [address] Basophils (Bld) [#/Vol] 0.07 10*3/uL <0.11 k/uL [facility] Basophils/100 WBC (Bld) 0.8 % [facility] Differential cell count method Nom (Bld) Auto [facility] Eosinophils (Bld) [#/Vol] 0.14 10*3/uL <0.46 k/uL [facility] Eosinophils/100 WBC (Bld) 1.7 % [facility] Erythrocyte distribution width (RBC) [Ratio] 17.3 % High 11.5 - 15.0 % [facility] Hematocrit (Bld) [Volume fraction] 35.2 % Low 39.0 - 51.0 % [facility] Hemoglobin (Bld) [Mass/Vol] 11.3 g/dL Low 13.0 - 17.0 g/dL [facility] Immature granulocytes (Bld) [#/Vol] 0.13 10*3/uL High <0.10 k/uL [facility] Immature granulocytes/100 WBC (Bld) 1.6 % [facility] Lymphocytes (Bld) [#/Vol] 1.09 10*3/uL 1.00 - 4.00 k/uL [facility] Lymphocytes/100 WBC (Bld) 13.1 % [facility] MCH (RBC) [Entitic mass] 31.9 pg 26.0 - 34.0 pg [facility] MCHC (RBC) [Mass/Vol] 32.1 g/dL 30.5 - 36.0 g/dL [facility] MCV (RBC) [Entitic vol] 99.4 fL 80.0 - 100.0 fL [facility] Monocytes (Bld) [#/Vol] 0.75 10*3/uL <0.87 k/uL [facility] Monocytes/100 WBC (Bld) 9.0 % [facility] Neutrophils (Bld) [#/Vol] 6.14 10*3/uL 1.45 - 7.50 k/uL [facility] Neutrophils/100 WBC (Bld) 73.8 % [facility] Nucleated RBC (Bld) [#/Vol] <0.01 k/uL [facility] Nucleated RBC/100 WBC (Bld) [Ratio] 0.0 /100 WBC [facility] Platelet mean volume (Bld) [Entitic vol] 10.0 fL 9.0 - 12.7 fL [facility] Platelets (Bld) [#/Vol] 227 10*3/uL 150 - 400 k/uL [facility] RBC (Bld) [#/Vol] 3.54 10*6/uL Low 4.20 - 6.0 0 m/uL [facility] WBC (Bld) [#/Vol] 8.32 10*3/uL 3.70 - 11.00 k/uL [facility] CEA SerPl-mCncon 04-16-2023 Carcinoembryonic Ag [Mass/Vol] 2.1 ng/mL Normal <=2.9 [facility] Comment on above: Order Comment: Speci men Type: BLOOD SPECIMENOrdering Facility: [facility] Address: [address] [address] Result Comment: Carc inoembryonic antigen test is used as an aid in monitoring response to treatment or recurrence in patients with established colorectal, breast, lung, prostatic, pancreatic, and ovarian carcinomas. Clinical correlation is required.The Carcinoembryonic antigen test was performed using the [employer] DXI paramagnetic particle chemiluminescent immunoassay method. Results obtained with different assay methods or kits cannot be used interchangeably. Performed By: #### 2 039-6 ####[facility]CLIA [id number] [place] [address] [place] CNOVSPon 04-16-2023 CNOVSP Normal [facility] Comprehensive metabolic 2000 panelon 04-16-2023 Albumin [Mass/Vol] 3.8 g/dL Low 3.9-4.9 [facility] Comment on above: Order Comment: Speci men Type: BLOOD SPECIMENOrdering Facility: [facility] Address: [address] [id number] Performed By: #### 2 4323-8 ####[facility] [id number] [place] [address] ALP [Catalytic activity/Vol] 88 U/L Normal 38-113 [facility] Comment on above: Order Comment: Speci men Type: BLOOD SPECIMENOrdering Facility: [facility] Address: [address] [address] Performed By: #### 2 4323-8 ####[facility] [id number] [place] [address] ALT [Catalytic activity/Vol] 11 U/L Normal 10-54 [facility] Comment on above: Order Comment: Speci men Type: BLOOD SPECIMENOrdering Facility: [facility] Address: [address] [address] Performed By: #### 2 4323-8 ####[facility] [id number] [place] [address] Anion gap [Moles/Vol] 11 mmol/L Normal 9-18 [facility] Comment on above: Order Comment: Speci men Type: BLOOD SPECIMENOrdering Facility: [facility] Address: [address] [address] Performed By: #### 2 4323-8 ####[facility] [id number] [place] [address] AST [Catalytic activity/Vol] 16 U/L Normal 14-40 [facility] Comment on above: Order Comment: Speci men Type: BLOOD SPECIMENOrdering Facility: [facility] Address: [address] [address] Performed By: #### 2 4323-8 ####[facility] [id number] [place] [address] Bilirubin [Mass/Vol] 0.4 mg/dL Normal 0.2-1.3 [facility] Comment on above: Order Comment: Speci men Type: BLOOD SPECIMENOrdering Facility: [facility] Address: [address] [place] [address] Performed By: #### 2 4323-8 ####[facility] [id number] [place] [address] Calcium [Mass/Vol] 9.5 mg/dL Normal 8.5-10.2 [facility] Comment on above: Order Comment: Speci men Type: BLOOD SPECIMENOrdering Facility: [facility] Address: [address] [place] [address] Performed By: #### 2 4323-8 ####[facility] [id number] [place] [address] Chloride [Moles/Vol] 107 mmol/L High 97-105 [facility] Comment on above: Order Comment: Speci men Type: BLOOD SPECIMENOrdering Facility: [facility] Address: [address] [address] Performed By: #### 2 4323-8 ####[facility] [id number] [place] [address] CO2 [Moles/Vol] 25 mmol/L Normal 22-30 [facility] Comment on above: Order Comment: Speci men Type: BLOOD SPECIMENOrdering Facility: [facility] Address: [address] [place] [address] Performed By: #### 2 4323-8 ####[facility] [id number] [place] [address] Creatinine [Mass/Vol] 1.10 mg/dL Normal 0.73-1.22 [facility] Comment on above: Order Comment: Speci men Type: BLOOD SPECIMENOrdering Facility: [facility] Address: [address] [place] [address] Performed By: #### 2 4323-8 ####[facility] [id number] [place] [address] ESTIMATED GLOMERULAR FILTRATION RATE 72 mL/min/1.73m??? Normal >=60 [facility] Comment on above: Order Comment: Speci men Type: BLOOD SPECIMENOrdering Facility: [facility] Address: [address] [place] [address] Result Comment: Rebekah mated Glomerular Filtration Rate [...] actual GFR. Performed By: #### 2 4323-8 ####[facility] [id number] [place] [address] Glucose [Mass/Vol] 126 mg/dL High 74-99 [facility] Comment on above: Order Comment: Nazario brooks Type: BLOOD SPECIMENOrdering Facility: [facility] Address: [place] [address] Result Comment: The [place] [employer] (ADA) provides guidance for cutoff [...] Standards of Medical Care in Diabetes 2016, [place] [employer]. Diabetes Care. 2016.39(Suppl 1). Performed By: #### 2 4323-8 ####[facility] [id number] [place] [address] Potassium [Moles/Vol] 3.2 mmol/L Low 3.7-5.1 [facility] Comment on above: Order Comment: Nazario brooks Type: BLOOD SPECIMENOrdering Facility: [facility] Address: [place] [address] Performed By: #### 2 4323-8 ####[facility] [id number] [place] [address] Protein [Mass/Vol] 6.2 g/dL Low 6.3-8.0 [facility] Comment on above: Order Comment: Speci men Type: BLOOD SPECIMENOrdering Facility: [facility] Address: [address] [address] Performed By: #### 2 4323-8 ####[facility] [id number] [place] [address] Sodium [Moles/Vol] 143 mmol/L Normal 136-144 [facility] Comment on above: Order Comment: Speci men Type: BLOOD SPECIMENOrdering Facility: [facility] Address: [address] [address] Performed By: #### 2 4323-8 ####[facility] [id number] [place] [address] Urea nitrogen [Mass/Vol] 22 mg/dL Normal 9-24 [facility] Comment on above: Order Comment: Speci men Type: BLOOD SPECIMENOrdering Facility: [facility] Address: [address] [address] Performed By: #### 2 4323-8 ####[facility] [id number] [place] [address] Albumin [Mass/Vol] 3.8 g/dL Low 3.9 - 4.9 g/dL [facility] ALP [Catalytic activity/Vol] 88 U/L 38 - 113 U/L [facility] ALT [Catalytic activity/Vol] 11 U/L 10 - 54 U/L [facility] Anion gap [Moles/Vol] 11 mmol/L 9 - 18 mmol/L [facility] AST [Catalytic activity/Vol] 16 U/L 14 - 40 U/L [facility] Bilirubin [Mass/Vol] 0.4 mg/dL 0.2 - 1 .3 mg/dL [facility] Calcium [Mass/Vol] 9.5 mg/dL 8.5 - 10. 2 mg/dL [facility] Chloride [Moles/Vol] 107 mmol/L High 97 - 10 5 mmol/L [facility] CO2 [Moles/Vol] 25 mmol/L 22 - 30 mmol/L [facility] Creatinine [Mass/Vol] 1.10 mg/dL 0.73 - 1.22 mg/dL [facility] Estimated Glomerular Filtration Rate 72 mL/min/1.73m >=60 mL/min/1.73 m [facility] Glucose [Mass/Vol] 126 mg/dL High 74 - 99 mg/dL [facility] Potassium [Moles/Vol] 3.2 mmol/L Low 3.7 - 5.1 mmol/L [facility] Protein [Mass/Vol] 6.2 g/dL Low 6.3 - 8.0 g/dL [facility] Sodium [Moles/Vol] 143 mmol/L 136 - 144 mmol/L [facility] Urea nitrogen [Mass/Vol] 22 mg/dL 9 - 24 mg/dL [facility] XR cerv spine AP/LAT/FLX/EXT on 04-11-2023 XR cerv spine AP/LAT/FLX/EXT [facility] [place] [address] XRay Report Signed Patient: Mervat Damon MR#: [id number] : 1950 Acct:[id number] Age/Sex: 72 / M ADM Date: 04/11/23 Loc: XD Room: Type: [facility] Attending Dr: Valencia ONEAL Copies to: JM Godoy Ordering Provider: JM Godoy Date of Service: 04/11/23 XR/XR hips BI 4V adult: M54.12 ([id number]) XR/XR cerv spine AP/LAT/FLX/EXT: M54.12 CLINICAL HISTORY: [...] Viola Santiago M.D.04/11/2023 11:02 AM Dictation Location: [address] [place] [address] Transcribed By: [facility] 04/11/23 1102 Dictated By: Viola Santiago MD 04/11/23 1054 Signed By: 04/11/23 1102 [facility] SURGICAL PATHOLOGYon 023 Case Report Surgical Pathology Report Case: [id number] Authorizing Provider: Deborah Norman MD Collected: 04/09/2023 01:00 PM Ordering Location: Procedures Received: 04/09/2023 02:35 PM Pathologist: Aries Lynch MD Specimen: ANAL CANAL BIOPSY, polyp [facility] FINAL DIAGNOSIS A. Anal canal, polyp , biopsy: - Squamous mucosa polyp. [facility] Gross Description A. ANAL CANAL BIOPSY Received in formalin is one santos-martínez polypoid segment of tissue measuring 0.3 x 0.3 x 0.2 cm. No stalk is present. The line of resection is noted. The specimen is not sectioned and totally submitted in one cassette. Gross examination performed at [facility], [address] [place] [address] JT 04/09/2023 7:48 PM [facility] Performing Lab Diagnostic interpretation performed at [facility], [address] [facility] [address] [place]# [id number] Concrete Hopper Operator: Aries Lynch M.D. [facility] ANES POSTPROC EVALon 023 ANES POSTPROC EVAL HNO ID: [id number] Author: Deborah Gomez MD Service: Anesthesiology Author [...] April 09, 2023 TIME: 2:09 PM CSN: [id number] [facility] ANES PRE-OPon 04-09-2023 ANES PRE-OP HNO ID: [id number] Author: Deborah Gomez MD Service: Anesthesiology Author [...] and consent discussed: yes. Patient / Responsible Republican agrees to proceed: yes Patient / Surrogate [...] information obtained (more content not included)... Normal [facility] COLONOSCOPY DIAGNOSTICon [facility] Colonoscopyon 04-09-2023 Colonoscopy [facility] Gastrointestinal Endoscopy Patient Name: Mervat Damon Procedure Date: 04/09/2023 12:15 PM Date of : 1950 Admit Type: Outpatient Age: 72 Room: [place] [address] Gender: Male Note Status: Finalized Attending MD: [...] the patient. Procedure Code(s): --- Professional --- 42060, Colonoscopy, flexible; with removal of tumor(s), polyp(s), or other lesion(s) by snare technique CPT copyright 2020 [employer]. All rights reserved. The codes documented in this report are preliminary and upon icd 9 coder review may be revised to meet [...] Loss: Estimated blood loss was minimal. Normal [facility] HISTORY PHYSICALon HISTORY PHYSICAL HNO ID: [id number] Author: Tova Orlando MD Service: Colorectal Author [...] DATE: April 09, 2023 TIME: 12:18 PM [facility] SURGICAL PATHOLOGYon 023 CASE REPORT [facility] Comment on above: Order Comment: Speci men Type: TISSUE SPECIMEN Ordering Facility: [facility] Address: [address] [place], [place] [address] Result Comment: Surg ica Pathology Report Case: [id number] Authorizing Provider: Deborah Norman MD Collected: 04/09/2023 01:00 PM Ordering Location: Procedures Received: 04/09/2023 02:35 PM Pathologist: Aries Lynch MD Specimen: ANAL CANAL BIOPSY, polyp Performed By: #### S #### [facility] CLIA [id number] [address] [place] [address] LAB CLIA [id number] [address] [place] [address] FINAL DIAGNOSIS [facility] Comment on above: Order Comment: Speci men Type: TISSUE SPECIMEN Ordering Facility: [facility] Address: [address] [place], [place] [address] Result Comment: A. A nal canal, polyp, biopsy: - Squamous mucosa polyp. Performed By: #### S #### [facility] CLIA [id number] [address] [place] [address] LAB CLIA [id number] [address] [place] [address] FINAL PERFORMING LAB [facility] Comment on above: Order Comment: Speci men Type: TISSUE SPECIMEN Ordering Facility: [facility] Address: [address] [address] Result Comment: Diag nostic interpretation performed at [facility], [address] [place] [address] CLIA# [id number] Concrete Hopper Operator: Aries Lynch M.D. Performed By: #### S #### [facility] CLIA [id number] [place] [address] LAB CLIA [id number] [address] [place] [address] GROSS DESCRIPTION Normal [facility] Comment on above: Order Comment: Speci men Type: TISSUE SPECIMEN Ordering Facility: [facility] Address: [address] [place] [address] Result Comment: A. A NAL CANAL BIOPSY Received in formalin is one santos-martínez polypoid segment of tissue measuring 0.3 x 0.3 x 0.2 cm. No stalk is present. The line of resection is noted. The specimen is not sectioned and totally submitted in one cassette. Gross examination performed at [facility], [address] [place] [address] JT 04/09/2023 7:48 PM Performed By: #### S #### [facility] CLIA [id number] [address] [place] [address] LAB CLIA [id number] [address] [place] [address] OF [facility] Family Medicine Office/Clini c Noteon 04-02-2023 Family Medicine Office/Clinic Note HPI Staff Mervat is a 72 year old male who presents with C/O neck pain. This has been a concern for about 3 weeks. Reports he was initially evaluated at [facility] on 03/18/23, The patient presented with [...] prescription for Zithromax for pneumonia. Will give [place] and Flexeril for his muscle spasm/strain. He [...] taper, # 100 tab(s), Refills(s) 3, [id number], 188, cm, 04/02/23 10:50:00 EDT, Height/Length Dosing, 100, kg, 04/02/23 10:50:00 EDT, Weight Dosing 2. RA - Rheumatoid arthritis (M06.9: Rheumatoid arthritis, unspecified) see #1 Ordered: predniSONE, 5 mg = 1 tab(s), Oral, Daily, start after taper, # 100 tab(s), Refills(s) 3, [facility]acy: [facility] #[id number], 188, cm, 04/02/23 10:50:00 EDT, Height/Length Dosing, 100, kg, 04/02/23 10:50:00 EDT, Weight Dosing 3. Non-ischemic cardiomyopathy (I42.8: Other cardiomyopathies) medically managed Orders: acetaminophen-hydrocodo ne, 1 tab(s), Oral, q6hr as needed for pain, 10 tab(s), Refill(s) 0, [id number], 188, cm, 04/02/23 10:50:00 EDT, Height/Length Dosing, 100, kg, 04/02/23 10:50:00 EDT, Weight Dosing methocarbamol, 500 mg = 1 tab(s), Oral, QID, X 7 day(s), # 28 tab(s), Refills(s) 0, Pharmacy: [facility] #[id number], 188, cm, 04/02/23 10:50:00 EDT, Height/Length Dosing, 100, kg, 04/02/23 10:50:00 EDT, Weight Dosing predniSONE, See Instructions, Take 5 tabs po daily x 3 days then Take 4 tabs daily x 3 days then Take 3 tabs daily x 3 days Take 2 tabs daily x 3 days Take 1 tab daily x 3 days, # 45 tab(s), Refills(s) 0, Pharmacy: [facility] #[id number], 188, cm, 10/24/22 10:33... predniSONE, 0 = 1 -, Oral, As Directed, Take 5 tabs by mouth daily x3 days, 4 daily x3 days, 3 daily x3 (more content not included)... Normal [facility] Comment on above: Result Comment: Elec tronically Signed By: Lorenzo OLSON DO\.br\Date and Time Signed: 04/02/23 11:24 EDT [facility] 03-26-2023 [facility] Normal [facility] Consultation Noteon 03-21-20 Consultation Note [id number] D:127 Normal [facility] 03-20-2023 [facility] Normal [facility] CBC W Auto Differential pane l (Bld)on 03-19-2023 Basophils (Bld) [#/Vol] 0.03 10*3/uL Normal <0.11 [facility] Comment on above: Order Comment: Speci men Type: BLOOD SPECIMENOrdering Facility: [facility] Address: [address] [address] Performed By: #### 5 7021-8 ####[facility] [id number] [place] [address] Basophils/100 WBC (Bld) 0.4 % Normal [facility] Comment on above: Order Comment: Speci men Type: BLOOD SPECIMENOrdering Facility: [facility] Address: [address] [address] Performed By: #### 5 7021-8 ####[facility] [id number] [place] [address] Differential cell count method Nom (Bld) Auto Normal [facility] Comment on above: Order Comment: Speci men Type: BLOOD SPECIMENOrdering Facility: [facility] Address: [address] [place] [address] Performed By: #### 5 7021-8 ####[facility] [id number] [place] [address] Eosinophils (Bld) [#/Vol] 0.23 10*3/uL Normal <0.46 [facility] Comment on above: Order Comment: Speci men Type: BLOOD SPECIMENOrdering Facility: [facility] Address: [address] [place] [address] Performed By: #### 5 7021-8 ####[facility] [id number] [place] [address] Eosinophils/100 WBC (Bld) 2.8 % Normal [facility] Comment on above: Order Comment: Speci men Type: BLOOD SPECIMENOrdering Facility: [facility] Address: [address] [place] [address] Performed By: #### 5 7021-8 ####[facility] [id number] [place] [address] Erythrocyte distribution width (RBC) [Ratio] 16.1 % High 11.5-15.0 [facility] Comment on above: Order Comment: Speci men Type: BLOOD SPECIMENOrdering Facility: [facility] Address: [address] [place] [address] Performed By: #### 5 7021-8 ####[facility] [id number] [place] [address] Hematocrit (Bld) [Volume fraction] 35.0 % Low 39.0-51.0 [facility] Comment on above: Order Comment: Speci men Type: BLOOD SPECIMENOrdering Facility: [facility] Address: [address] [address] Performed By: #### 5 7021-8 ####[facility] [id number] [place] [address] Hemoglobin (Bld) [Mass/Vol] 11.6 g/dL Low 13.0-17.0 [facility] Comment on above: Order Comment: Speci men Type: BLOOD SPECIMENOrdering Facility: [facility] Address: [address] [place] [address] Performed By: #### 5 7021-8 ####[facility] [id number] [place] [address] Immature granulocytes (Bld) [#/Vol] 0.03 10*3/uL Normal <0.10 [facility] Comment on above: Order Comment: Speci men Type: BLOOD SPECIMENOrdering Facility: [facility] Address: [address] [place] [address] Performed By: #### 5 7021-8 ####[facility] [id number] [place] [address] Immature granulocytes/100 WBC (Bld) 0.4 % Normal [facility] Comment on above: Order Comment: Speci men Type: BLOOD SPECIMENOrdering Facility: [facility] Address: [address] [place] [address] Performed By: #### 5 7021-8 ####[facility] [id number] [place] [address] Lymphocytes (Bld) [#/Vol] 0.65 10*3/uL Low 1.00-4.00 [facility] Comment on above: Order Comment: Speci men Type: BLOOD SPECIMENOrdering Facility: [facility] Address: [address] [place] [address] Performed By: #### 5 7021-8 ####[facility] [id number] [place] [address] Lymphocytes/100 WBC (Bld) 7.9 % Normal [facility] Comment on above: Order Comment: Speci men Type: BLOOD SPECIMENOrdering Facility: [facility] Address: [address] [place] [address] Performed By: #### 5 7021-8 ####[facility] [id number] [place] [address] MCH (RBC) [Entitic mass] 33.5 pg Normal 26.0-34.0 [facility] Comment on above: Order Comment: Speci men Type: BLOOD SPECIMENOrdering Facility: [facility] Address: [address] [place] [address] Performed By: #### 5 7021-8 ####[facility] LABIA [id number] [place] [address] MCHC (RBC) [Mass/Vol] 33.1 g/dL Normal 30.5-36.0 [facility] Comment on above: Order Comment: Speci men Type: BLOOD SPECIMENOrdering Facility: [facility] Address: [address] [place] [address] Performed By: #### 5 7021-8 ####[facility] [id number] [place] [address] MCV (RBC) [Entitic vol] 101.2 fL High 80.0-100.0 [facility] Comment on above: Order Comment: Speci men Type: BLOOD SPECIMENOrdering Facility: [facility] Address: [address] [place] [address] Performed By: #### 5 7021-8 ####[facility] LABIA [id number] [place] [address] Monocytes (Bld) [#/Vol] 1.41 10*3/uL High <0.87 [facility] Comment on above: Order Comment: Speci men Type: BLOOD SPECIMENOrdering Facility: [facility] Address: [address] [address] Performed By: #### 5 7021-8 ####[facility] [id number] [place] [address] Monocytes/100 WBC (Bld) 17.2 % Normal [facility] Comment on above: Order Comment: Speci men Type: BLOOD SPECIMENOrdering Facility: [facility] Address: [address] [address] Performed By: #### 5 7021-8 ####[facility] [id number] [place] [address] Neutrophils (Bld) [#/Vol] 5.84 10*3/uL Normal 1.45-7.50 [facility] Comment on above: Order Comment: Speci men Type: BLOOD SPECIMENOrdering Facility: [facility] Address: [address] [address] Performed By: #### 5 7021-8 ####[facility] [id number] [place] [address] Neutrophils/100 WBC (Bld) 71.3 % Normal [facility] Comment on above: Order Comment: Speci men Type: BLOOD SPECIMENOrdering Facility: [facility] Address: [address] [place] [address] Performed By: #### 5 7021-8 ####[facility] [id number] [place] [address] Nucleated RBC (Bld) [#/Vol] 10*3/uL Normal <0.01 [facility] Comment on above: Order Comment: Speci men Type: BLOOD SPECIMENOrdering Facility: [facility] Address: [address] [place] [address] Performed By: #### 5 7021-8 ####[facility] [id number] [place] [address] Nucleated RBC/100 WBC (Bld) [Ratio] 0.0 /100 WBC Normal [facility] Comment on above: Order Comment: Speci men Type: BLOOD SPECIMENOrdering Facility: [facility] Address: [address] [place] [address] Performed By: #### 5 7021-8 ####[facility] [id number] [place] [address] Platelet mean volume (Bld) [Entitic vol] 9.4 fL Normal 9.0-12.7 [facility] Comment on above: Order Comment: Speci men Type: BLOOD SPECIMENOrdering Facility: [facility] Address: [address] [place] [address] Performed By: #### 5 7021-8 ####[facility] [id number] [place] [address] Platelets (Bld) [#/Vol] 171 10*3/uL Normal 150-400 [facility] Comment on above: Order Comment: Speci men Type: BLOOD SPECIMENOrdering Facility: [facility] Address: [address] [place] [address] Performed By: #### 5 7021-8 ####[facility] [id number] [place] [address] RBC (Bld) [#/Vol] 3.46 10*6/uL Low 4.20-6.00 [facility] Comment on above: Order Comment: Speci men Type: BLOOD SPECIMENOrdering Facility: [facility] Address: [address] [place] [address] Performed By: #### 5 7021-8 ####[facility] [id number] [place] [address] WBC (Bld) [#/Vol] 8.19 10*3/uL Normal 3.70-11.00 [facility] Comment on above: Order Comment: Speci men Type: BLOOD SPECIMENOrdering Facility: [facility] Address: [address] [place] [address] Performed By: #### 5 7021-8 ####[facility] LABIA [id number] [place] [address] Basophils (Bld) [#/Vol] 0.03 10*3/uL <0.11 k/uL [facility] Basophils/100 WBC (Bld) 0.4 % [facility] Differential cell count method Nom (Bld) Auto [facility] Eosinophils (Bld) [#/Vol] 0.23 10*3/uL <0.46 k/uL [facility] Eosinophils/100 WBC (Bld) 2.8 % [facility] Erythrocyte distribution width (RBC) [Ratio] 16.1 % High 11.5 - 15.0 % [facility] Hematocrit (Bld) [Volume fraction] 35.0 % Low 39.0 - 51.0 % [facility] Hemoglobin (Bld) [Mass/Vol] 11.6 g/dL Low 13.0 - 17.0 g/dL [facility] Immature granulocytes (Bld) [#/Vol] 0.03 10*3/uL <0.10 k/uL [facility] Immature granulocytes/100 WBC (Bld) 0.4 % [facility] Lymphocytes (Bld) [#/Vol] 0.65 10*3/uL Low 1.00 - 4.00 k/uL [facility] Lymphocytes/100 WBC (Bld) 7.9 % [facility] MCH (RBC) [Entitic mass] 33.5 pg 26.0 - 34.0 pg [facility] MCHC (RBC) [Mass/Vol] 33.1 g/dL 30.5 - 36.0 g/dL [facility] MCV (RBC) [Entitic vol] 101.2 fL High 80.0 - 100.0 fL [facility] Monocytes (Bld) [#/Vol] 1.41 10*3/uL High <0.87 k/uL [facility] Monocytes/100 WBC (Bld) 17.2 % [facility] Neutrophils (Bld) [#/Vol] 5.84 10*3/uL 1.45 - 7.50 k/uL [facility] Neutrophils/100 WBC (Bld) 71.3 % [facility] Nucleated RBC (Bld) [#/Vol] <0.01 k/uL [facility] Nucleated RBC/100 WBC (Bld) [Ratio] 0.0 /100 WBC [facility] Platelet mean volume (Bld) [Entitic vol] 9.4 fL 9.0 - 12.7 fL [facility] Platelets (Bld) [#/Vol] 171 10*3/uL 150 - 400 k/uL [facility] RBC (Bld) [#/Vol] 3.46 10*6/uL Low 4.20 - 6.0 0 m/uL [facility] WBC (Bld) [#/Vol] 8.19 10*3/uL 3.70 - 11.00 k/uL [facility] CEA SerPl-mCncon 03-19-2023 Carcinoembryonic Ag [Mass/Vol] 2.0 ng/mL Normal <=2.9 [facility] Comment on above: Order Comment: Speci men Type: BLOOD SPECIMENOrdering Facility: [facility] Address: [address] [place] [address] Result Comment: Carc inoembryonic antigen test is used as an aid in monitoring response to treatment or recurrence in patients with established colorectal, breast, lung, prostatic, pancreatic, and ovarian carcinomas. Clinical correlation is required.The Carcinoembryonic antigen test was performed using the [employer] DXI paramagnetic particle chemiluminescent immunoassay method. Results obtained with different assay methods or kits cannot be used interchangeably. Performed By: #### 2 039-6 ####[facility] LABCLIA [id number] [place] [address] [place] CNOVSPon 03-19-2023 CNOVSP Normal [facility] Comprehensive metabolic 2000 panelon 03-19-2023 Albumin [Mass/Vol] 3.6 g/dL Low 3.9 - 4.9 g/dL [facility] ALP [Catalytic activity/Vol] 98 U/L 38 - 113 U/L [facility] ALT [Catalytic activity/Vol] 10 U/L 10 - 54 U/L [facility] Anion gap [Moles/Vol] 10 mmol/L 9 - 18 mmol/L [facility] AST [Catalytic activity/Vol] 18 U/L 14 - 40 U/L [facility] Bilirubin [Mass/Vol] 0.5 mg/dL 0.2 - 1 .3 mg/dL [facility] Calcium [Mass/Vol] 9.3 mg/dL 8.5 - 10. 2 mg/dL [facility] Chloride [Moles/Vol] 102 mmol/L 97 - 10 5 mmol/L [facility] CO2 [Moles/Vol] 26 mmol/L 22 - 30 mmol/L [facility] Creatinine [Mass/Vol] 1.18 mg/dL 0.73 - 1.22 mg/dL [facility] Estimated Glomerular Filtration Rate 66 mL/min/1.73m >=60 mL/min/1.73 m [facility] Glucose [Mass/Vol] 123 mg/dL High 74 - 99 mg/dL [facility] Potassium [Moles/Vol] 3.6 mmol/L Low 3.7 - 5.1 mmol/L [facility] Protein [Mass/Vol] 6.2 g/dL Low 6.3 - 8.0 g/dL [facility] Sodium [Moles/Vol] 138 mmol/L 136 - 144 mmol/L [facility] Urea nitrogen [Mass/Vol] 20 mg/dL 9 - 24 mg/dL [facility] Albumin [Mass/Vol] 3.6 g/dL Low 3.9-4.9 [facility] Comment on above: Order Comment: Speci men Type: BLOOD SPECIMENOrdering Facility: [facility] Address: [address] [place] [address] Performed By: #### 2 4323-8 ####[facility]CLIA [id number] [place] [address] ALP [Catalytic activity/Vol] 98 U/L Normal 38-113 [facility] Comment on above: Order Comment: Speci men Type: BLOOD SPECIMENOrdering Facility: [facility] Address: [address] [place] [address] Performed By: #### 2 4323-8 ####[facility]CLIA [id number] [place] [address] ALT [Catalytic activity/Vol] 10 U/L Normal 10-54 [facility] Comment on above: Order Comment: Speci men Type: BLOOD SPECIMENOrdering Facility: [facility] Address: [address] [address] Performed By: #### 2 4323-8 ####[facility]CLIA [id number] [place] [address] Anion gap [Moles/Vol] 10 mmol/L Normal 9-18 [facility] Comment on above: Order Comment: Speci men Type: BLOOD SPECIMENOrdering Facility: [facility] Address: [address] [address] Performed By: #### 2 4323-8 ####[facility]CLIA [id number] [place] [address] AST [Catalytic activity/Vol] 18 U/L Normal 14-40 [facility] Comment on above: Order Comment: Speci men Type: BLOOD SPECIMENOrdering Facility: [facility] Address: [address] [address] Performed By: #### 2 4323-8 ####[facility]CLIA [id number] [place] [address] Bilirubin [Mass/Vol] 0.5 mg/dL Normal 0.2-1.3 [facility] Comment on above: Order Comment: Speci men Type: BLOOD SPECIMENOrdering Facility: [facility] Address: [address] [address] Performed By: #### 2 4323-8 ####[facility]CLIA [id number] [place] [address] Calcium [Mass/Vol] 9.3 mg/dL Normal 8.5-10.2 [facility] Comment on above: Order Comment: Speci men Type: BLOOD SPECIMENOrdering Facility: [facility] Address: [address] [address] Performed By: #### 2 4323-8 ####[facility] LABCLIA [id number] [place] [address] Chloride [Moles/Vol] 102 mmol/L Normal 97-105 [facility] Comment on above: Order Comment: Speci men Type: BLOOD SPECIMENOrdering Facility: [facility] Address: [address] [place] [address] Performed By: #### 2 4323-8 ####[facility] LABCLIA [id number] [place] [address] CO2 [Moles/Vol] 26 mmol/L Normal 22-30 [facility] Comment on above: Order Comment: Speci men Type: BLOOD SPECIMENOrdering Facility: [facility] Address: [address] [place] [address] Performed By: #### 2 4323-8 ####[facility]CLIA [id number] [place] [address] Creatinine [Mass/Vol] 1.18 mg/dL Normal 0.73-1.22 [facility] Comment on above: Order Comment: Speci men Type: BLOOD SPECIMENOrdering Facility: [facility] Address: [address] [place] [address] Performed By: #### 2 4323-8 ####[facility] LABCLIA [id number] [place] [address] ESTIMATED GLOMERULAR FILTRATION RATE 66 mL/min/1.73m??? Normal >=60 [facility] Comment on above: Order Comment: Speci men Type: BLOOD SPECIMENOrdering Facility: [facility] Address: [address] [place] [address] Result Comment: Rebekah mated Glomerular Filtration Rate [...] actual GFR. Performed By: #### 2 4323-8 ####[facility] LABCLIA [id number] [place] [address] Glucose [Mass/Vol] 123 mg/dL High 74-99 [facility] Comment on above: Order Comment: Speci men Type: BLOOD SPECIMENOrdering Facility: [facility] Address: [address] [place] [address] Result Comment: The [employer] (ADA) provides guidance for cutoff [...] Standards of Medical Care in Diabetes 2016, [employer]. Diabetes Care. 2016.39(Suppl 1). Performed By: #### 2 4323-8 ####[facility] LABCLIA [id number] [place] [address] Potassium [Moles/Vol] 3.6 mmol/L Low 3.7-5.1 [facility] Comment on above: Order Comment: Speci men Type: BLOOD SPECIMENOrdering Facility: [facility] Address: [address] [place] [address] Performed By: #### 2 4323-8 ####[facility]CLIA [id number] [place] [address] Protein [Mass/Vol] 6.2 g/dL Low 6.3-8.0 [facility] Comment on above: Order Comment: Speci men Type: BLOOD SPECIMENOrdering Facility: [facility] Address: [address] [place] [address] Performed By: #### 2 4323-8 ####[facility] [id number] [place] [address] Sodium [Moles/Vol] 138 mmol/L Normal 136-144 [facility] Comment on above: Order Comment: Speci men Type: BLOOD SPECIMENOrdering Facility: [facility] Address: [address] [place] [phone] Performed By: #### 2 4323-8 ####[facility] [id number] [place] [address] Urea nitrogen [Mass/Vol] 20 mg/dL Normal 9-24 [facility] Comment on above: Order Comment: Speci men Type: BLOOD SPECIMENOrdering Facility: [facility] Address: [address] [place] [phone] Performed By: #### 2 4323-8 ####[facility]CL[facility] [id number] [place] [address] Consent for Treatmenton 02-19 Consent for Treatment [id number]#1.00C D:127 Normal [facility] Discharge Instructionson Discharge Instructions [id number]#[id number] D:127 Normal [facility] ED Clinical Summaryon 2022 ED Clinical Summary (Inserted Image. Lary ble to display) [address] [address] ED Clinical Summary Person Information Name: MERVAT DAMON [facility] Age: 72 Years : 1950 Sex: Male Language: Ecuadorean PCP: Lorenzo OLSON DO Marital Status: Phone: [phone] Visit Id: Visit Reason: Cough; Neck pain; [...] 03/18/2023 13:40:25 03/18/2023 13:40:25 03/18/2023 13:40:25 ADDRESS: [address] [place] [phone] PHYS DOC NOTES: MEDICAL INFORMATION: Prescriptions Given: New Medications [id number], [address] [place], [place] [id number], [phone] azithromycin (Zithromax 250 mg Tab) 1 Packets By Mouth As Directed for 5 Days. as directed on package labeling. Refills: 0. cyclobenzaprine (cyclobenzaprine 10 mg Tab) 1 Tablets By Mouth 3 times a day as needed for spasm. Refills: 0. Medications to Continue Taking That Have Changed [id number], [address] [place], [place] [id number], [phone] START: acetaminophen-hydrocodo ne (Hammonton 325 mg-5 mg oral tablet) 1 Tablets [...] Follow up: With: Address: When: Lorenzo OLSON [address] [place] [address] [employer] In 3 days 03/21/2023 Comments: Return to the emergency room if your shortness of breath gets worse, your neck pain gets worse or any new symptoms. Be aware that both Hammonton and Flexeril can cause drowsiness. DIAGNOSIS: 1:Pneumonia; 2:Neck muscle spasm Normal [facility] ED Note-Physicianon 03-18-20 ED Note-Physician Basic Information [...] and Complexity of Problems Differential Diagnosis: [] [facility] Data External documents reviewed: [] My [...] prescription for Zithromax for pneumonia. Will give Hammonton and Flexeril for his muscle spasm/strain. He [...] pain, 10 tab(s), Refill(s) 0, [id number], 188, cm, 03/18/23 10:50:00 EDT, Height/Length Dosing, 111, kg, 03/18/23 10:50:00 EDT, Weight Dosing Orders: acetaminophen-oxycodone , 1 tab(s), Tab, Oral, Once, Stop date 03/18/23 11:55:00 EDT, STAT, Start date 03/18/23 11:55:00 EDT azithromycin, = 1 packet(s), Oral, As Directed, as directed on package labeling, X 5 day(s), # 6 tab(s), Refills(s) 0, [id number], 188, cm, 03/18/23 10:50:00 EDT, Height/Length Dosing, 111, kg, 03/18/23 10:50:00 EDT, Weight Dosing cyclobenzaprine, 10 mg = 1 tab(s), Oral, TID, PRN for spasm, # 20 tab(s), Refills(s) 0, [id number], 188, cm, 03/18/23 10:50:00 EDT, Height/Length Dosing, [...] 10 mg= 1 tab(s), Oral, TID, PRN Hammonton (more content not included)... Normal [facility] Comment on above: Result Comment: Elec tronically [...] these instructions at home: Medicines ? Take ggyc-xwu-rtzlbhm and prescription medicines only as told by [...] Keep all (more content not included)... Normal [facility] ED Patient Summaryon 023 ED Patient Summary (Inserted Image. Lary ble to display) [address] [address] Patient Discharge Instructions Person Information Name: MERVAT DAMON Age: 72 Years Arrival Date: 03/18/2023 10:24:33 Discharge Diagnosis: 1:Pneumonia; 2:Neck muscle spasm Primary Care Physician: Lorenzo OLSON DO Provider Information Primary Provider: Yuridia Houser M.D. Advanced Production Lapping Machine Operator:None The exam and treatment you received in the Emergency Department were for an urgent problem and are not intended as complete care. It is important that you follow up with a doctor, nurse practitioner, or physician?s assistant media buyer for ongoing care. If your symptoms become [...] Address: When: Lorenzo OLSON [address] [place] [address] Business (1) In 3 days 03/21/2023 Comments: Return to the emergency room if your shortness of breath gets worse, your neck pain gets worse or any new symptoms. Be aware that both [place]on and Flexeril can cause drowsiness. In the event that this physician does not participate in your insurance network, please consult with your insurance company to find a nearby participating provider. Patient Education Materials: Muscle Cramps and Spasms; Community-Acquired Pneumonia, Adult A MESSAGE TO ALL PATIENTS REGARDING OPIOIDS PRESCRIPTION OPIOIDS: WHAT YOU NEED TO KNOW Prescription opioids can be used to help relieve ekzzoroz-mj-ttcitm pain and are often prescribed following a [...] to tyson (more content not included)... Normal [facility] XR Chest 2 Viewson XR Chest 2 [...] mGy = na DAP = na Normal [facility] XR Spine Cervical 4 or 5 Vie [...] mGy = na DAP = na Normal [facility] CNOVon 03-13-2023 [facility] 1 [employer] Normal [facility] Comment on above: Order Comment: Speci men Type: BLOOD SPECIMENOrdering Facility: [facility] Address: [address] [place] [address] Performed By: #### M ISC1 ####[facility] LABCLIA [id number] [address] [place] TEST 1 Common Hereditary Cancer Panel Normal [facility] Comment on above: Order Comment: Speci men Type: BLOOD SPECIMENOrdering Facility: [facility] Address: [address] [place] [address] Performed By: #### M ISC1 ####[facility] LABCLIA [id number] [address] [place] TEST RESULTS 1 View results in Scan jesse Documents link when available. Normal [facility] Comment on above: Order Comment: Speci men Type: BLOOD SPECIMENOrdering Facility: [facility] Address: [address] [place] [address] Performed By: #### M ISC1 ####[facility] LABCLIA [id number] [address] [place] CNPNon 03-07-2023 CNPN Normal [facility] Consultation Noteon 03-06-20 Consultation Note [id number]#1.00C D:127 Normal [facility] CBC W Auto Differential pane l (Bld)on 03-05-2023 Basophils (Bld) [#/Vol] 0.05 10*3/uL Normal <0.11 [facility] Comment on above: Order Comment: Speci men Type: BLOOD SPECIMENOrdering Facility: [facility] Address: [address] [place] [address] Performed By: #### 5 7021-8 ####[facility] [id number] [place] [address] Basophils/100 WBC (Bld) 0.8 % Normal [facility] Comment on above: Order Comment: Speci men Type: BLOOD SPECIMENOrdering Facility: [facility] Address: [address] [place] [address] Performed By: #### 5 7021-8 ####[facility]CL[facility] [id number] [place] [address] Differential cell count method Nom (Bld) Auto Normal [facility] Comment on above: Order Comment: Speci men Type: BLOOD SPECIMENOrdering Facility: [facility] Address: [address] [place] [address] Performed By: #### 5 7021-8 ####[facility]CL[facility] [id number] [place] [address] Eosinophils (Bld) [#/Vol] 0.20 10*3/uL Normal <0.46 [facility] Comment on above: Order Comment: Speci men Type: BLOOD SPECIMENOrdering Facility: [facility] Address: [address] [place] [address] Performed By: #### 5 7021-8 ####[facility] [id number] [place] [address] Eosinophils/100 WBC (Bld) 3.1 % Normal [facility] Comment on above: Order Comment: Speci men Type: BLOOD SPECIMENOrdering Facility: [facility] Address: [address] [place] [address] Performed By: #### 5 7021-8 ####[facility]CL[facility] [id number] [place] [address] Erythrocyte distribution width (RBC) [Ratio] 16.0 % High 11.5-15.0 [facility] Comment on above: Order Comment: Speci men Type: BLOOD SPECIMENOrdering Facility: [facility] Address: [address] [place] [address] Performed By: #### 5 7021-8 ####[facility]CL[facility] [id number] [place] [address] Hematocrit (Bld) [Volume fraction] 35.3 % Low 39.0-51.0 [facility] Comment on above: Order Comment: Speci men Type: BLOOD SPECIMENOrdering Facility: [facility] Address: [address] [place] [address] Performed By: #### 5 7021-8 ####[facility]CL[facility] [id number] [place] [address] Hemoglobin (Bld) [Mass/Vol] 11.7 g/dL Low 13.0-17.0 [facility] Comment on above: Order Comment: Speci men Type: BLOOD SPECIMENOrdering Facility: [facility] Address: [address] [place] [address] Performed By: #### 5 7021-8 ####[facility]CL[facility] [id number] [place] [address] Immature granulocytes (Bld) [#/Vol] 0.03 10*3/uL Normal <0.10 [facility] Comment on above: Order Comment: Speci men Type: BLOOD SPECIMENOrdering Facility: [facility] Address: [address] [place] [address] Performed By: #### 5 7021-8 ####[facility]CL[facility] [id number] [place] [address] Immature granulocytes/100 WBC (Bld) 0.5 % Normal [facility] Comment on above: Order Comment: Speci men Type: BLOOD SPECIMENOrdering Facility: [facility] Address: [address] [place] [address] Performed By: #### 5 7021-8 ####[facility]CL[facility] [id number] [place] [address] Lymphocytes (Bld) [#/Vol] 0.57 10*3/uL Low 1.00-4.00 [facility] Comment on above: Order Comment: Speci men Type: BLOOD SPECIMENOrdering Facility: [facility] Address: [address] [place] [address] Performed By: #### 5 7021-8 ####[facility]CL[facility] [id number] [place] [address] Lymphocytes/100 WBC (Bld) 8.9 % Normal [facility] Comment on above: Order Comment: Speci men Type: BLOOD SPECIMENOrdering Facility: [facility] Address: [address] [place] [address] Performed By: #### 5 7021-8 ####[facility]CL[facility] [id number] [place] [address] MCH (RBC) [Entitic mass] 34.0 pg Normal 26.0-34.0 [facility] Comment on above: Order Comment: Speci men Type: BLOOD SPECIMENOrdering Facility: [facility] Address: [address] [place] [address] Performed By: #### 5 7021-8 ####[facility]CL[facility] [id number] [place] [address] MCHC (RBC) [Mass/Vol] 33.1 g/dL Normal 30.5-36.0 [facility] Comment on above: Order Comment: Speci men Type: BLOOD SPECIMENOrdering Facility: [facility] Address: [address] [place] [address] Performed By: #### 5 7021-8 ####[facility]CL[facility] [id number] [place] [address] MCV (RBC) [Entitic vol] 102.6 fL High 80.0-100.0 [facility] Comment on above: Order Comment: Speci men Type: BLOOD SPECIMENOrdering Facility: [facility] Address: [address] [place] [address] Performed By: #### 5 7021-8 ####[facility]CL[facility] [id number] [place] [address] Monocytes (Bld) [#/Vol] 0.95 10*3/uL High <0.87 [facility] Comment on above: Order Comment: Speci men Type: BLOOD SPECIMENOrdering Facility: [facility] Address: [address] [address] Performed By: #### 5 7021-8 ####[facility]CL[facility] [id number] [place] [address] Monocytes/100 WBC (Bld) 14.9 % Normal [facility] Comment on above: Order Comment: Speci men Type: BLOOD SPECIMENOrdering Facility: [facility] Address: [address] [place] [address] Performed By: #### 5 7021-8 ####[facility]CL[facility] [id number] [place] [address] Neutrophils (Bld) [#/Vol] 4.57 10*3/uL Normal 1.45-7.50 [facility] Comment on above: Order Comment: Speci men Type: BLOOD SPECIMENOrdering Facility: [facility] Address: [address] [place] [address] Performed By: #### 5 7021-8 ####[facility]CL[facility] [id number] [place] [address] Neutrophils/100 WBC (Bld) 71.8 % Normal [facility] Comment on above: Order Comment: Speci men Type: BLOOD SPECIMENOrdering Facility: [facility] Address: [address] [place] [address] Performed By: #### 5 7021-8 ####[facility]CL[facility] [id number] [place] [address] Nucleated RBC (Bld) [#/Vol] 10*3/uL Normal <0.01 [facility] Comment on above: Order Comment: Speci men Type: BLOOD SPECIMENOrdering Facility: [facility] Address: [address] [place] [address] Performed By: #### 5 7021-8 ####[facility]CL[facility] [id number] [place] [address] Nucleated RBC/100 WBC (Bld) [Ratio] 0.0 /100 WBC Normal [facility] Comment on above: Order Comment: Speci men Type: BLOOD SPECIMENOrdering Facility: [facility] Address: [address] [place] [address] Performed By: #### 5 7021-8 ####[facility]CL[facility] [id number] [place] [address] Platelet mean volume (Bld) [Entitic vol] 9.9 fL Normal 9.0-12.7 [facility] Comment on above: Order Comment: Speci men Type: BLOOD SPECIMENOrdering Facility: [facility] Address: [address] [place] [address] Performed By: #### 5 7021-8 ####[facility]CL[facility] [id number] [place] [address] Platelets (Bld) [#/Vol] 137 10*3/uL Low 150-400 [facility] Comment on above: Order Comment: Speci men Type: BLOOD SPECIMENOrdering Facility: [facility] Address: [address] [address] Performed By: #### 5 7021-8 ####[facility]CL[facility] [id number] [place] [address] RBC (Bld) [#/Vol] 3.44 10*6/uL Low 4.20-6.00 [facility] Comment on above: Order Comment: Speci men Type: BLOOD SPECIMENOrdering Facility: [facility] Address: [address] [address] Performed By: #### 5 7021-8 ####[facility] LABIA [id number] [place] [address] WBC (Bld) [#/Vol] 6.37 10*3/uL Normal 3.70-11.00 [facility] Comment on above: Order Comment: Speci men Type: BLOOD SPECIMENOrdering Facility: [facility] Address: [address] [place] [address] Performed By: #### 5 7021-8 ####[facility] LABIA [id number] [place] [address] CEA SerPl-mCncon 03-05-2023 Carcinoembryonic Ag [Mass/Vol] 2.1 ng/mL Normal <=2.9 [facility] Comment on above: Order Comment: Speci men Type: BLOOD SPECIMENOrdering Facility: [facility] Address: [address] [place] [address] Result Comment: Carc inoembryonic antigen test is used as an aid in monitoring response to treatment or recurrence in patients with established colorectal, breast, lung, prostatic, pancreatic, and ovarian carcinomas. Clinical correlation is required.The Carcinoembryonic antigen test was performed using the [employer] Unicel DXI paramagnetic particle chemiluminescent immunoassay method. Results obtained with different assay methods or kits cannot be used interchangeably. Performed By: #### 2 039-6 ####[facility] LABCLIA [id number] [address] [place] CNOVSPon 03-05-2023 CNOVSP Normal [facility] Comprehensive metabolic 2000 panelon 03-05-2023 Albumin [Mass/Vol] 3.8 g/dL Low 3.9-4.9 [facility] Comment on above: Order Comment: Speci men Type: BLOOD SPECIMENOrdering Facility: [facility] Address: [address] [place] [address] Performed By: #### 2 4323-8 ####[facility]CL[facility] [id number] [place] [address] ALP [Catalytic activity/Vol] 113 U/L Normal 38-113 [facility] Comment on above: Order Comment: Speci men Type: BLOOD SPECIMENOrdering Facility: [facility] Address: [address] [place] [address] Performed By: #### 2 4323-8 ####[facility]CL[facility] [id number] [place] [address] ALT [Catalytic activity/Vol] 9 U/L Low 10-54 [facility] Comment on above: Order Comment: Speci men Type: BLOOD SPECIMENOrdering Facility: [facility] Address: [address] [place] [address] Performed By: #### 2 4323-8 ####[facility]CLIA [id number] [place] [address] Anion gap [Moles/Vol] 9 mmol/L Normal 9-18 [facility] Comment on above: Order Comment: Speci men Type: BLOOD SPECIMENOrdering Facility: [facility] Address: [address] [place] [address] Performed By: #### 2 4323-8 ####[facility] LABIA [id number] [place] [address] AST [Catalytic activity/Vol] 14 U/L Normal 14-40 [facility] Comment on above: Order Comment: Speci men Type: BLOOD SPECIMENOrdering Facility: [facility] Address: [address] [address] Performed By: #### 2 4323-8 ####[facility]CL[facility] [id number] [place] [address] Bilirubin [Mass/Vol] 0.4 mg/dL Normal 0.2-1.3 [facility] Comment on above: Order Comment: Speci men Type: BLOOD SPECIMENOrdering Facility: [facility] Address: [address] [place] [address] Performed By: #### 2 4323-8 ####[facility]CL[facility] [id number] [place] [address] Calcium [Mass/Vol] 9.1 mg/dL Normal 8.5-10.2 [facility] Comment on above: Order Comment: Speci men Type: BLOOD SPECIMENOrdering Facility: [facility] Address: [address] [place] [address] Performed By: #### 2 4323-8 ####[facility]CL[facility] [id number] [place] [address] Chloride [Moles/Vol] 106 mmol/L High 97-105 [facility] Comment on above: Order Comment: Speci men Type: BLOOD SPECIMENOrdering Facility: [facility] Address: [address] [place] [address] Performed By: #### 2 4323-8 ####[facility]CL[facility] [id number] [place] [address] CO2 [Moles/Vol] 27 mmol/L Normal 22-30 [facility] Comment on above: Order Comment: Speci men Type: BLOOD SPECIMENOrdering Facility: [facility] Address: [address] [place] [address] Performed By: #### 2 4323-8 ####[facility]CL[facility] [id number] [place] [address] Creatinine [Mass/Vol] 1.16 mg/dL Normal 0.73-1.22 [facility] Comment on above: Order Comment: Nazario brooks Type: BLOOD SPECIMENOrdering Facility: [facility] Address: [address] [phone] Performed By: #### 2 4323-8 ####[facility]CL[facility] [id number] [place] [address] ESTIMATED GLOMERULAR FILTRATION RATE 68 mL/min/1.73m??? Normal >=60 [facility] Comment on above: Order Comment: Nazario brooks Type: BLOOD SPECIMENOrdering Facility: [facility] Address: [address] [place] [address] Result Comment: Rebekah mated Glomerular Filtration Rate [...] actual GFR. Performed By: #### 2 4323-8 ####[facility]CL[facility] [id number] [place] [address] Glucose [Mass/Vol] 102 mg/dL High 74-99 [facility] Comment on above: Order Comment: Nazario todd Type: BLOOD SPECIMENOrdering Facility: [facility] Address: [address] [address] Result Comment: The [employer] (ADA) provides guidance for cutoff [...] Standards of Medical Care in Diabetes 2016, [place] [employer]. Diabetes Care. 2016.39(Suppl 1). Performed By: #### 2 4323-8 ####[facility]CLIA [id number] [place] [address] Potassium [Moles/Vol] 3.4 mmol/L Low 3.7-5.1 [facility] Comment on above: Order Comment: Speci men Type: BLOOD SPECIMENOrdering Facility: [facility] Address: [address] [place] [address] Performed By: #### 2 4323-8 ####[facility]CL[facility] [id number] [place] [address] Protein [Mass/Vol] 6.3 g/dL Normal 6.3-8.0 [facility] Comment on above: Order Comment: Speci men Type: BLOOD SPECIMENOrdering Facility: [facility] Address: [address] [place] [address] Performed By: #### 2 4323-8 ####[facility]CL[facility] [id number] [place] [address] Sodium [Moles/Vol] 142 mmol/L Normal 136-144 [facility] Comment on above: Order Comment: Speci men Type: BLOOD SPECIMENOrdering Facility: [facility] Address: [address] [place] [address] Performed By: #### 2 4323-8 ####[facility]CL[facility] [id number] [place] [address] Urea nitrogen [Mass/Vol] 19 mg/dL Normal 9-24 [facility] Comment on above: Order Comment: Speci men Type: BLOOD SPECIMENOrdering Facility: [facility] Address: [address] [place] [address] Performed By: #### 2 4323-8 ####[facility]CL[facility] [id number] [place] [address] CNPNon 03-01-2023 CNPN Normal [facility] CNPNon 02-26-2023 CNPN Normal [facility] Consultation Noteon 02-21-20 Consultation Note [id number] [facility] [id number]#1.00C D:127 Normal [facility] CBC W Auto Differential pane l (Bld)on 02-19-2023 Basophils (Bld) [#/Vol] 0.03 10*3/uL Normal <0.11 [facility] [facility] Comment on above: Order Comment: Speci men Type: BLOOD SPECIMENOrdering Facility: [facility] Address: [address] [place] [address] Performed By: #### 5 7021-8 ####[facility]IA [id number] [place] [address] Basophils/100 WBC (Bld) 0.5 % Normal [facility] Comment on above: Order Comment: Speci men Type: BLOOD SPECIMENOrdering Facility: [facility] Address: [address] [place] [address] Performed By: #### 5 7021-8 ####[facility] LABCLIA [id number] [place] [address] Differential cell count method Nom (Bld) Auto Normal [facility] Comment on above: Order Comment: Speci men Type: BLOOD SPECIMENOrdering Facility: [facility] Address: [address] [place] [address] Performed By: #### 5 7021-8 ####[facility] LABCLIA [id number] [place] [address] Eosinophils (Bld) [#/Vol] 0.13 10*3/uL Normal <0.46 [facility] Comment on above: Order Comment: Speci men Type: BLOOD SPECIMENOrdering Facility: [facility] Address: [address] [place] [address] Performed By: #### 5 7021-8 ####[facility] LABCLIA [id number] [place] [address] Eosinophils/100 WBC (Bld) 2.1 % Normal [facility] Comment on above: Order Comment: Speci men Type: BLOOD SPECIMENOrdering Facility: [facility] Address: [address] [place] [address] Performed By: #### 5 7021-8 ####[facility] LABCLIA [id number] [place] [address] Erythrocyte distribution width (RBC) [Ratio] 15.8 % High 11.5-15.0 [facility] Comment on above: Order Comment: Speci men Type: BLOOD SPECIMENOrdering Facility: [facility] Address: [address] [place] [address] Performed By: #### 5 7021-8 ####[facility] LABCLIA [id number] [place] [address] Hematocrit (Bld) [Volume fraction] 35.5 % Low 39.0-51.0 [facility] Comment on above: Order Comment: Speci men Type: BLOOD SPECIMENOrdering Facility: [facility] Address: [address] [place] [address] Performed By: #### 5 7021-8 ####[facility] LABCLIA [id number] [place] [address] Hemoglobin (Bld) [Mass/Vol] 11.8 g/dL Low 13.0-17.0 [facility] Comment on above: Order Comment: Speci men Type: BLOOD SPECIMENOrdering Facility: [facility] Address: [address] [place] [address] Performed By: #### 5 7021-8 ####[facility]CLIA [id number] [place] [address] Immature granulocytes (Bld) [#/Vol] 0.03 10*3/uL Normal <0.10 [facility] Comment on above: Order Comment: Speci men Type: BLOOD SPECIMENOrdering Facility: [facility] Address: [address] [address] Performed By: #### 5 7021-8 ####[facility] LABCLIA [id number] [place] [address] Immature granulocytes/100 WBC (Bld) 0.5 % Normal [facility] Comment on above: Order Comment: Speci men Type: BLOOD SPECIMENOrdering Facility: [facility] Address: [address] [place] [address] Performed By: #### 5 7021-8 ####[facility]CLIA [id number] [place] [address] Lymphocytes (Bld) [#/Vol] 0.67 10*3/uL Low 1.00-4.00 [facility] Comment on above: Order Comment: Speci men Type: BLOOD SPECIMENOrdering Facility: [facility] Address: [address] [place] [address] Performed By: #### 5 7021-8 ####[facility] [id number] [place] [address] Lymphocytes/100 WBC (Bld) 10.8 % Normal [facility] Comment on above: Order Comment: Speci men Type: BLOOD SPECIMENOrdering Facility: [facility] Address: [address] [place] [address] Performed By: #### 5 7021-8 ####[facility] LABCLIA [id number] [place] [address] MCH (RBC) [Entitic mass] 34.0 pg Normal 26.0-34.0 [facility] Comment on above: Order Comment: Speci men Type: BLOOD SPECIMENOrdering Facility: [facility] Address: [address] [place] [address] Performed By: #### 5 7021-8 ####[facility] LABCLIA [id number] [place] [address] MCHC (RBC) [Mass/Vol] 33.2 g/dL Normal 30.5-36.0 [facility] Comment on above: Order Comment: Speci men Type: BLOOD SPECIMENOrdering Facility: [facility] Address: [address] [place] [address] Performed By: #### 5 7021-8 ####[facility]CLIA [id number] [place] [address] MCV (RBC) [Entitic vol] 102.3 fL High 80.0-100.0 [facility] Comment on above: Order Comment: Speci men Type: BLOOD SPECIMENOrdering Facility: [facility] Address: [address] [place] [address] Performed By: #### 5 7021-8 ####[facility] LABCLIA [id number] [place] [address] Monocytes (Bld) [#/Vol] 0.95 10*3/uL High <0.87 [facility] Comment on above: Order Comment: Speci men Type: BLOOD SPECIMENOrdering Facility: [facility] Address: [address] [address] Performed By: #### 5 7021-8 ####[facility]CLIA [id number] [place] [address] Monocytes/100 WBC (Bld) 15.3 % Normal [facility] Comment on above: Order Comment: Speci men Type: BLOOD SPECIMENOrdering Facility: [facility] Address: [address] [address] Performed By: #### 5 7021-8 ####[facility] LABCLIA [id number] [place] [address] Neutrophils (Bld) [#/Vol] 4.40 10*3/uL Normal 1.45-7.50 [facility] Comment on above: Order Comment: Speci men Type: BLOOD SPECIMENOrdering Facility: [facility] Address: [address] [place] [address] Performed By: #### 5 7021-8 ####[facility] LABCLIA [id number] [place] [address] Neutrophils/100 WBC (Bld) 70.8 % Normal [facility] Comment on above: Order Comment: Speci men Type: BLOOD SPECIMENOrdering Facility: [facility] Address: [address] [place] [address] Performed By: #### 5 7021-8 ####[facility]CL[facility] [id number] [place] [address] Nucleated RBC (Bld) [#/Vol] 10*3/uL Normal <0.01 [facility] Comment on above: Order Comment: Speci men Type: BLOOD SPECIMENOrdering Facility: [facility] Address: [address] [place] [address] Performed By: #### 5 7021-8 ####[facility] LABCLIA [id number] [place] [address] Nucleated RBC/100 WBC (Bld) [Ratio] 0.0 /100 WBC Normal [facility] Comment on above: Order Comment: Speci men Type: BLOOD SPECIMENOrdering Facility: [facility] Address: [address] [place] [address] Performed By: #### 5 7021-8 ####[facility] LABCLIA [id number] [place] [address] Platelet mean volume (Bld) [Entitic vol] 9.6 fL Normal 9.0-12.7 [facility] Comment on above: Order Comment: Speci men Type: BLOOD SPECIMENOrdering Facility: [facility] Address: [address] [place] [address] Performed By: #### 5 7021-8 ####[facility] LABCLIA [id number] [place] [address] Platelets (Bld) [#/Vol] 186 10*3/uL Normal 150-400 [facility] Comment on above: Order Comment: Speci men Type: BLOOD SPECIMENOrdering Facility: [facility] Address: [address] [place] [address] Performed By: #### 5 7021-8 ####[facility] [id number] [place] [address] RBC (Bld) [#/Vol] 3.47 10*6/uL Low 4.20-6.00 [facility] Comment on above: Order Comment: Speci men Type: BLOOD SPECIMENOrdering Facility: [facility] Address: [address] [place] [address] Performed By: #### 5 7021-8 ####[facility] [id number] [place] [address] WBC (Bld) [#/Vol] 6.21 10*3/uL Normal 3.70-11.00 [facility] Comment on above: Order Comment: Speci men Type: BLOOD SPECIMENOrdering Facility: [facility] Address: [address] [place] [address] Performed By: #### 5 7021-8 ####[facility] [id number] [place] [address] Basophils (Bld) [#/Vol] 0.03 10*3/uL <0.11 k/uL [facility] Basophils/100 WBC (Bld) 0.5 % [facility] Differential cell count method Nom (Bld) Auto [facility] Eosinophils (Bld) [#/Vol] 0.13 10*3/uL <0.46 k/uL [facility] Eosinophils/100 WBC (Bld) 2.1 % [facility] Erythrocyte distribution width (RBC) [Ratio] 15.8 % High 11.5 - 15.0 % [facility] Hematocrit (Bld) [Volume fraction] 35.5 % Low 39.0 - 51.0 % [facility] Hemoglobin (Bld) [Mass/Vol] 11.8 g/dL Low 13.0 - 17.0 g/dL [facility] Immature granulocytes (Bld) [#/Vol] 0.03 10*3/uL <0.10 k/uL [facility] Immature granulocytes/100 WBC (Bld) 0.5 % [facility] Lymphocytes (Bld) [#/Vol] 0.67 10*3/uL Low 1.00 - 4.00 k/uL [facility] Lymphocytes/100 WBC (Bld) 10.8 % [facility] MCH (RBC) [Entitic mass] 34.0 pg 26.0 - 34.0 pg [facility] MCHC (RBC) [Mass/Vol] 33.2 g/dL 30.5 - 36.0 g/dL [facility] MCV (RBC) [Entitic vol] 102.3 fL High 80.0 - 100.0 fL [facility] Monocytes (Bld) [#/Vol] 0.95 10*3/uL High <0.87 k/uL [facility] Monocytes/100 WBC (Bld) 15.3 % [facility] Neutrophils (Bld) [#/Vol] 4.40 10*3/uL 1.45 - 7.50 k/uL [facility] Neutrophils/100 WBC (Bld) 70.8 % [facility] Nucleated RBC (Bld) [#/Vol] <0.01 k/uL [facility] Nucleated RBC/100 WBC (Bld) [Ratio] 0.0 /100 WBC [facility] Platelet mean volume (Bld) [Entitic vol] 9.6 fL 9.0 - 12.7 fL [facility] Platelets (Bld) [#/Vol] 186 10*3/uL 150 - 400 k/uL [facility] RBC (Bld) [#/Vol] 3.47 10*6/uL Low 4.20 - 6.0 0 m/uL [facility] WBC (Bld) [#/Vol] 6.21 10*3/uL 3.70 - 11.00 k/uL [facility] CNOVSPon 02-19-2023 CNOVSP Normal [facility] Comprehensive metabolic 2000 panelon 02-19-2023 Albumin [Mass/Vol] 3.6 g/dL Low 3.9-4.9 [facility] Comment on above: Order Comment: Speci men Type: BLOOD SPECIMENOrdering Facility: [facility] Address: [address] [place] [id number] Performed By: #### 2 4323-8 ####[facility] LABCLIA [id number] [place] [address] ALP [Catalytic activity/Vol] 118 U/L High 38-113 [facility] Comment on above: Order Comment: Speci men Type: BLOOD SPECIMENOrdering Facility: [facility] Address: [address] [place] [address] Performed By: #### 2 4323-8 ####[facility] LABCLIA [id number] [place] [address] ALT [Catalytic activity/Vol] 10 U/L Normal 10-54 [facility] Comment on above: Order Comment: Speci men Type: BLOOD SPECIMENOrdering Facility: [facility] Address: [address] [place] [address] Performed By: #### 2 4323-8 ####[facility] LABCLIA [id number] [place] [address] Anion gap [Moles/Vol] 7 mmol/L Low 9-18 [facility] Comment on above: Order Comment: Speci men Type: BLOOD SPECIMENOrdering Facility: [facility] Address: [address] [place] [address] Performed By: #### 2 4323-8 ####[facility] LABCLIA [id number] [place] [address] AST [Catalytic activity/Vol] 14 U/L Normal 14-40 [facility] Comment on above: Order Comment: Speci men Type: BLOOD SPECIMENOrdering Facility: [facility] Address: [address] [place] [address] Performed By: #### 2 4323-8 ####[facility] LABCLIA [id number] [place] [address] Bilirubin [Mass/Vol] 0.4 mg/dL Normal 0.2-1.3 [facility] Comment on above: Order Comment: Speci men Type: BLOOD SPECIMENOrdering Facility: [facility] Address: [address] [address] Performed By: #### 2 4323-8 ####[facility] LABCLIA [id number] [place] [address] Calcium [Mass/Vol] 9.2 mg/dL Normal 8.5-10.2 [facility] Comment on above: Order Comment: Speci men Type: BLOOD SPECIMENOrdering Facility: [facility] Address: [address] [address] Performed By: #### 2 4323-8 ####[facility] LABCLIA [id number] [place] [address] Chloride [Moles/Vol] 105 mmol/L Normal 97-105 [facility] Comment on above: Order Comment: Speci men Type: BLOOD SPECIMENOrdering Facility: [facility] Address: [address] [address] Performed By: #### 2 4323-8 ####[facility] LABCLIA [id number] [place] [address] CO2 [Moles/Vol] 28 mmol/L Normal 22-30 [facility] Comment on above: Order Comment: Speci men Type: BLOOD SPECIMENOrdering Facility: [facility] Address: [address] [address] Performed By: #### 2 4323-8 ####[facility] LABCLIA [id number] [place] [address] Creatinine [Mass/Vol] 1.11 mg/dL Normal 0.73-1.22 [facility] Comment on above: Order Comment: Speci men Type: BLOOD SPECIMENOrdering Facility: [facility] Address: [address] [address] Performed By: #### 2 4323-8 ####[facility] LABCLIA [id number] [place] [address] ESTIMATED GLOMERULAR FILTRATION RATE 71 mL/min/1.73m??? Normal >=60 [facility] Comment on above: Order Comment: Nazario brooks Type: BLOOD SPECIMENOrdering Facility: [facility] Address: [address] [place] [address] Result Comment: Rebekah mated Glomerular Filtration Rate [...] actual GFR. Performed By: #### 2 4323-8 ####[facility] LABCLIA [id number] [place] [address] Glucose [Mass/Vol] 89 mg/dL Normal 74-99 [facility] Comment on above: Order Comment: Nazario brooks Type: BLOOD SPECIMENOrdering Facility: [facility] Address: [address] [place] [address] Result Comment: The [employer] (ADA) provides guidance for cutoff [...] Standards of Medical Care in Diabetes 2016, [place] [employer]. Diabetes Care. 2016.39(Suppl 1). Performed By: #### 2 4323-8 ####[facility] LABCLIA [id number] [place] [address] Potassium [Moles/Vol] 3.9 mmol/L Normal 3.7-5.1 [facility] Comment on above: Order Comment: Nazario brooks Type: BLOOD SPECIMENOrdering Facility: [facility] Address: [address] [address] Performed By: #### 2 4323-8 ####[facility] LABCLIA [id number] [place] [address] Protein [Mass/Vol] 6.0 g/dL Low 6.3-8.0 [facility] Comment on above: Order Comment: Speci men Type: BLOOD SPECIMENOrdering Facility: [facility] Address: [address] [address] Performed By: #### 2 4323-8 ####[facility] LABCLIA [id number] [place] [address] Sodium [Moles/Vol] 140 mmol/L Normal 136-144 [facility] Comment on above: Order Comment: Speci men Type: BLOOD SPECIMENOrdering Facility: [facility] Address: [address] [address] Performed By: #### 2 4323-8 ####[facility] LABCLIA [id number] [place] [address] Urea nitrogen [Mass/Vol] 14 mg/dL Normal 9-24 [facility] Comment on above: Order Comment: Speci men Type: BLOOD SPECIMENOrdering Facility: [facility] Address: [address] [address] Performed By: #### 2 4323-8 ####[facility] LABCLIA [id number] [place] [address] Albumin [Mass/Vol] 3.6 g/dL Low 3.9 - 4.9 g/dL [facility] ALP [Catalytic activity/Vol] 118 U/L High 38 - 113 U/L [facility] ALT [Catalytic activity/Vol] 10 U/L 10 - 54 U/L [facility] Anion gap [Moles/Vol] 7 mmol/L Low 9 - 18 mmol/L [facility] AST [Catalytic activity/Vol] 14 U/L 14 - 40 U/L [facility] Bilirubin [Mass/Vol] 0.4 mg/dL 0.2 - 1 .3 mg/dL [facility] Calcium [Mass/Vol] 9.2 mg/dL 8.5 - 10. 2 mg/dL [facility] Chloride [Moles/Vol] 105 mmol/L 97 - 10 5 mmol/L [facility] CO2 [Moles/Vol] 28 mmol/L 22 - 30 mmol/L [facility] Creatinine [Mass/Vol] 1.11 mg/dL 0.73 - 1.22 mg/dL [facility] Estimated Glomerular Filtration Rate 71 mL/min/1.73m >=60 mL/min/1.73 m [facility] Glucose [Mass/Vol] 89 mg/dL 74 - 99 mg/dL [facility] Potassium [Moles/Vol] 3.9 mmol/L 3.7 - 5.1 mmol/L [facility] Protein [Mass/Vol] 6.0 g/dL Low 6.3 - 8.0 g/dL [facility] Sodium [Moles/Vol] 140 mmol/L 136 - 144 mmol/L [facility] Urea nitrogen [Mass/Vol] 14 mg/dL 9 - 24 mg/dL [facility] CNOVon 02-07-2023 CNOV Normal [facility] CNPNon 02-07-2023 CNPN Normal [facility] Consultation Noteon 02-07-20 Consultation Note [id number] D:127 Normal [facility] CBC W Auto Differential pane l (Bld)on 02-05-2023 Basophils (Bld) [#/Vol] 0.04 10*3/uL Normal <0.11 [facility] Comment on above: Order Comment: Speci men Type: BLOOD SPECIMENOrdering Facility: [facility] Address: [address] [place] [address] Performed By: #### 5 7021-8 ####[facility] LABCLIA [id number] [place] [address] Basophils/100 WBC (Bld) 0.8 % Normal [facility] Comment on above: Order Comment: Speci men Type: BLOOD SPECIMENOrdering Facility: [facility] Address: [address] [address] Performed By: #### 5 7021-8 ####[facility] LABCLIA [id number] [place] [address] Differential cell count method Nom (Bld) Auto Normal [facility] Comment on above: Order Comment: Speci men Type: BLOOD SPECIMENOrdering Facility: [facility] Address: [address] [place] [address] Performed By: #### 5 7021-8 ####[facility] LABCLIA [id number] [place] [address] Eosinophils (Bld) [#/Vol] 0.19 10*3/uL Normal <0.46 [facility] Comment on above: Order Comment: Speci men Type: BLOOD SPECIMENOrdering Facility: [facility] Address: [address] [place] [address] Performed By: #### 5 7021-8 ####[facility] [id number] [place] [address] Eosinophils/100 WBC (Bld) 3.8 % Normal [facility] Comment on above: Order Comment: Speci men Type: BLOOD SPECIMENOrdering Facility: [facility] Address: [address] [place] [address] Performed By: #### 5 7021-8 ####[facility] LABCLIA [id number] [place] [address] Erythrocyte distribution width (RBC) [Ratio] 15.9 % High 11.5-15.0 [facility] Comment on above: Order Comment: Speci men Type: BLOOD SPECIMENOrdering Facility: [facility] Address: [address] [place] [address] Performed By: #### 5 7021-8 ####[facility] LABCLIA [id number] [place] [address] Hematocrit (Bld) [Volume fraction] 35.5 % Low 39.0-51.0 [facility] Comment on above: Order Comment: Speci men Type: BLOOD SPECIMENOrdering Facility: [facility] Address: [address] [place] [address] Performed By: #### 5 7021-8 ####[facility] LABCLIA [id number] [place] [address] Hemoglobin (Bld) [Mass/Vol] 11.8 g/dL Low 13.0-17.0 [facility] Comment on above: Order Comment: Speci men Type: BLOOD SPECIMENOrdering Facility: [facility] Address: [address] [address] Performed By: #### 5 7021-8 ####[facility]CL[facility] [id number] [place] [address] Immature granulocytes (Bld) [#/Vol] 10*3/uL Normal <0.10 [facility] Comment on above: Order Comment: Speci men Type: BLOOD SPECIMENOrdering Facility: [facility] Address: [address] [address] Performed By: #### 5 7021-8 ####[facility] LABCLIA [id number] [place] [address] Immature granulocytes/100 WBC (Bld) 0.2 % Normal [facility] Comment on above: Order Comment: Speci men Type: BLOOD SPECIMENOrdering Facility: [facility] Address: [address] [address] Performed By: #### 5 7021-8 ####[facility] LABCLIA [id number] [place] [address] Lymphocytes (Bld) [#/Vol] 0.49 10*3/uL Low 1.00-4.00 [facility] Comment on above: Order Comment: Speci men Type: BLOOD SPECIMENOrdering Facility: [facility] Address: [address] [place] [address] Performed By: #### 5 7021-8 ####[facility]CL[facility] [id number] [place] [address] Lymphocytes/100 WBC (Bld) 9.7 % Normal [facility] Comment on above: Order Comment: Speci men Type: BLOOD SPECIMENOrdering Facility: [facility] Address: [address] [place] [address] Performed By: #### 5 7021-8 ####[facility] LABCLIA [id number] [place] [address] MCH (RBC) [Entitic mass] 34.4 pg High 26.0-34.0 [facility] Comment on above: Order Comment: Speci men Type: BLOOD SPECIMENOrdering Facility: [facility] Address: [address] [place] [address] Performed By: #### 5 7021-8 ####[facility] LABCLIA [id number] [place] [address] MCHC (RBC) [Mass/Vol] 33.2 g/dL Normal 30.5-36.0 [facility] Comment on above: Order Comment: Speci men Type: BLOOD SPECIMENOrdering Facility: [facility] Address: [address] [place] [address] Performed By: #### 5 7021-8 ####[facility] LABCLIA [id number] [place] [address] MCV (RBC) [Entitic vol] 103.5 fL High 80.0-100.0 [facility] Comment on above: Order Comment: Speci men Type: BLOOD SPECIMENOrdering Facility: [facility] Address: [address] [place] [address] Performed By: #### 5 7021-8 ####[facility] [id number] [place] [address] Monocytes (Bld) [#/Vol] 0.62 10*3/uL Normal <0.87 [facility] Comment on above: Order Comment: Speci men Type: BLOOD SPECIMENOrdering Facility: [facility] Address: [address] [address] Performed By: #### 5 7021-8 ####[facility] [id number] [place] [address] Monocytes/100 WBC (Bld) 12.3 % Normal [facility] Comment on above: Order Comment: Speci men Type: BLOOD SPECIMENOrdering Facility: [facility] Address: [address] [address] Performed By: #### 5 7021-8 ####[facility] [id number] [place] [address] Neutrophils (Bld) [#/Vol] 3.70 10*3/uL Normal 1.45-7.50 [facility] Comment on above: Order Comment: Speci men Type: BLOOD SPECIMENOrdering Facility: [facility] Address: [address] [address] Performed By: #### 5 7021-8 ####[facility] [id number] [place] [address] Neutrophils/100 WBC (Bld) 73.2 % Normal [facility] Comment on above: Order Comment: Speci men Type: BLOOD SPECIMENOrdering Facility: [facility] Address: [address] [address] Performed By: #### 5 7021-8 ####[facility] [id number] [place] [address] Nucleated RBC (Bld) [#/Vol] 10*3/uL Normal <0.01 [facility] Comment on above: Order Comment: Speci men Type: BLOOD SPECIMENOrdering Facility: [facility] Address: [address] [place] [address] Performed By: #### 5 7021-8 ####[facility] [id number] [place] [address] Nucleated RBC/100 WBC (Bld) [Ratio] 0.0 /100 WBC Normal [facility] Comment on above: Order Comment: Speci men Type: BLOOD SPECIMENOrdering Facility: [facility] Address: [address] [place] [address] Performed By: #### 5 7021-8 ####[facility] [id number] [place] [address] Platelet mean volume (Bld) [Entitic vol] 9.4 fL Normal 9.0-12.7 [facility] Comment on above: Order Comment: Speci men Type: BLOOD SPECIMENOrdering Facility: [facility] Address: [address] [place] [address] Performed By: #### 5 7021-8 ####[facility] [id number] [place] [address] Platelets (Bld) [#/Vol] 162 10*3/uL Normal 150-400 [facility] Comment on above: Order Comment: Speci men Type: BLOOD SPECIMENOrdering Facility: [facility] Address: [address] [place] [address] Performed By: #### 5 7021-8 ####[facility] [id number] [place] [address] RBC (Bld) [#/Vol] 3.43 10*6/uL Low 4.20-6.00 [facility] Comment on above: Order Comment: Speci men Type: BLOOD SPECIMENOrdering Facility: [facility] Address: [address] [place] [address] Performed By: #### 5 7021-8 ####[facility] [id number] [place] [address] WBC (Bld) [#/Vol] 5.05 10*3/uL Normal 3.70-11.00 [facility] Comment on above: Order Comment: Speci men Type: BLOOD SPECIMENOrdering Facility: [facility] Address: [place] [address] Performed By: #### 5 7021-8 ####[facility] [id number] [place] [address] CNOVSPon 02-05-2023 CNOVSP Normal [facility] Coding Summary.on 02-05-2023 Coding Summary. CD:[id number] Ww+ PGhlYWQ+OC1TSBFeQ61dpLG ozJ7gW7CEIKzQYfsdTDAMVO yDCuPnuyPyDO8xyGVtVMCb IC8+TU4rANAvHzcjzRNxr5E 5iZO9I09haf8mBIxhxHB6JK DzWzEuftqjx6tazZl7IKwwW mluOyBt ICUcxV07MJD9sA97Lw91jPB ixKWup9lfxMd0KhVfFEPtHP V5dMkrLJdsc6VvFNWcU15rt WAvd7J5 IFUzaBwrzBDaYiPxoAT2fD8 kNKncpizym5hahgkzEwm5ir 28gXRpv8A2fHV6E3JeprO1N GJvbGQg LskkxBFKfZ5pvgksj2yfxta rBeZyGMWcOLn7IMc2VGSznQ szWnOjQC03UQY6RJMhwlMoO 2FsLWFs pMnxVkL2t8U4Kw9YD0YFRhi pT3CGTNHHSNnixIA+PC90cj 24W0NqBgliKkf3BJCuSES1s UX2hF5l JSYqOAhyh8L2yYH5S2UtovL gen4si2frRTJiFJdnQ89mzW Ceq7I7BNJcsNM3REYacSemD iBzaG93 Oyc+DIPuaKhea5ApMclqy0n zt0evpQm0HvhkMGSqqfUywW pjSMO5e1YvEj6nFOOmmKW3m RK1rP1a BtVvLfC0QWliW608NbMmmDR yIbdiZ37uT7UvcQQ+PHRyPj f2QCNtbEmfIM6hY0BkRJQai mctbGVm wAinCI0pIGTxebjuTDPxpF0 oEYIfQ1d6CbWpIrM2IImiS5 AbCFJxglwkMs44jD7wMsKmA xH2JHsm B9QoogG2MHIzkVFfPTmcNNZ 6W11ea4J3LCNgPZPsHCV5oS H1eR8asSrfzloykSKwgDybj mVydGlj ZNveJUucD449IGMxgAntNnV vZGluZyBEYXRlOiAgMDQvMT gvMjAyMzwvdGQ+POKjYOA0y WxlPSAn uTYsJJjjGa8oiRrliIflGN6 eAUBpksfeGVPwgB1mQIQxbH MnkUzsUQ6aFPLpiqtxx043F iAxMHB0 VOAkbMVaV9DqoC5jBbOdWHN sSXPiE5EntDZiEKvdZ479RP wlZaI5JHBwpnBzP9EfCEVay WduOiB0 d9K0Uh3Le7IffikaN7RwjRK cFzReBkbnDMy1M3SlZelsrR I+HH65RWTrSN55HWi2VWD2d WxlPSdi GTKtM8FdlF5cWwDgERDkGBC kOyc+PHRhYmxlIHdpZHRoPS kuCHUdZtJjpAtdCV4nPu8iX GVyLWNv gBwaqSKtNsHba7mqRHIlNXy nXX4tfSnxK1PjmAG8ZZVdn3 q9Hn15N86lY8DxyYU+PGNvb RS3nFE7 oO1tYuLuVfM4AEloJ053MnP wyQMjGosac6lxe3swwKx3Fh G9CTAgidAisKsqSBV9d6FfH y66T93f IHdpZHRoPSIxNSUiIHZhbGl mud4buK6qRi5+CMDowSU9sL Q5bN4gVqZaInJ2VMcbK513Z nRvcCIv Bimzf5xwj4queXm0MqQsHTD kbaBppStuKDE3e6AzXo14T5 OruIfdx4ZhRfa8cc69sDAyh 6P7bZB9 Z3ArDPXeskuewNDfrKufOW7 qNDIxbzzvNIEbsT8rARXvE9 o7HrPmVoE5HNwmS8VyiqP6G GJvbGQg YSUqfWXWqR5rbangt1pqkot dVxHrXBQeJIg7TVo6WEUcxM fuOwVmKTD1OgT3TPR9vFZiu V6dvZwx klxeaK3oLmg+BAI8tEVblXN BZG3aPiebsRX+RYZjLBQ6yQ ghNTtcMZBirW2qKBVfX4u0P iAwLjA1 UZipW2MkavA7DWZpmRHuXFQ cbTQGiR3jrxnrz8xmppqbVy QjJNQqXCw9LFa2NMGkpUazL iBsZWZ0 MvE9BFS7aZRtyY9mfUbyxvy nkX9wQgj+DooiyLjtKVK4KS i7E9MkDje8CNAnvAxgEU6pt GFkZGlu Ni3pcFexnZrnRZ9nZSBbxro qh395KcQcp8zxYRNqaSQzGH ffKMM3N60io2F6QURtQJRkD UF9iLI6 mO3wuUimcoiagGGooJrohoM peBrpRAjdTJflW430EQGynI uqAhWdCMh0S2JjIjv8BWQhh EoeRH2y wIYqACkdDs9wlSzqhSauBX5 wOOSwcjaou898LzAnz8agBA PanRPnVIemUMI8E34tm7V0W CMwMDAw QPL1sZN0oI9qeOywnessjWC mdDsgdmVydGljYWwtYWxpZ2 97YOXytNkhUqCrbXa1I0UqH ug4NKIx nAqwWD2qmMHeMJsjNr6qiEb xeYpzCQ7oTVQcdoign074Go Clo6msGSWetDCrNRevWTV7P 35nb8Q7 XSIfACPaGKC3jRV7mN4wgPy nbjogbGVmdDsgdmVydGljYW daRNbiJ727YIFwgGsdYtIal GllbnQg EGsqTSw5N9SwFpmykWZ+PC9 6EBMsNY46cWJarPEwr3yivT x3XtBkUNEjOBG7iJndLUyrs 3JkZXIt G76cmPEjt7W5BYWwkAeahTL cJsEvdYQ1aH0pSOxitnjwb0 jomdoxCmtnc7shvf94eQ14D 29sIHdp ZHRoPSIzMCUiIHZhbGlnbj0 pjV8bLm7+YIHfgYC5lKM6iM 2xAKGiGjX3QVzvP012OqNht CIvPjxj c8aom1loaNv0NmX4FTHphmM vhKmzFMH3c3RvCi61E10gZT dpZHRoPSIyMCUiIHZhbGlnb j3xaY2u Ii8+NVFdbON6bTJ6xR3kErD gWkL1RWqnU858OdWvqFCtPw pqJ93sE2DrjXA+LDBpGhr0N CBzdHls YV4enPTlUYcyTq8uQXR2IyL uLpPpJZnwY6TnXYGnraybgp rqxOJ0PKFbAIGynJ49Ta1dy DogMTBw vPXLrP9zlthop6bbaklqZdD sDWGuQBd9PDs8EJXhxTarHi OqNJW8RaM3GTR6eEYxzU0iq Glnbjog kB8gZ3YnKQYsiijlWo63wD9 yNiCzYzK7OCnnUxo+V0FTSU 1ERQrhDB5XM0aGSPifBHojw GQ+PHRk TDC2hPaxEGqcCFAduZ8dGIH dO6k5VoKtSeR2LPfeV6KtKO QyqzfiHt17vT1lZyVzFyP1T WmfY5Ol geE8KLGiyFMcPDkxZHD3G48 dc8Z0AXVjHEWpWGA5aCL0kK 1hbGlnbjogbGVmdDsgdmVyd GljYWwt UXldU523IGFfjLfnQtKnXkZ 3WaB2DRD7X0IfUnt7WBEjzL dtML1wxIKzZZfbZb0neIjrz IhkLT9x UIJszybgORCshU3sUZYzvRK rtNixXS4xQMCaoxqtv575Zu ZyLWT0HDWygLHqI0IxyO8kE iAjMDAw HNQcM2RlvMFuTQjrE986KSk tSzY5SSByjlIhT2RdMYLwlJ slSaO3b5K6Ke46OXMUIWNoo zwvdGQ+ QSPpHOF1gYyfIJkrCZDctS5 aXDDeC0g7UmRdDfZ7VCyhL1 KgMJMmckvlQc95hJ6pKdAlJ aM8BKez L1OarrF3PHXgvJBkTSgiIMP 0M36qb0X8FTXaMZKxQEB4uZ L9eU5kfPbddhthuVAdlGyce mVydGlj XGwaCZbsP644WZVnwOkbOt1 ioNM6R7KiKjg4TIDsxBbsYV 8bxMBtJAhbGd2whTpdwQxgM J1uEFOr amowKLYncH4xUMKttSVlqQr qKV5jXQLxmuwrv791LlGeCH U3MIAhiGSwL0CdsV0eVuHwV DAwMDAw M7CtyMSlHKtbX852OHkwOjT 5RMDjptSnE5YwYJYdcNnmBe B1k4W8Rf6RpIIuRLGvGO49U C27FM16 M4NuRkteuIUwkKB+PHRhYmx lIHdpZHRoPScxMDAlJyBzdH biCP5mFr5lVLGfFPJenTpge HNlOiBj q1ljEAAaGFeuYM3yyJfwL7E bpPI2GYLjk8d2Mr35A62nZ4 JvdXA+XSTmuZS9sMT7lM0xJ zAlIiB2 GDpxL966VzCryJWxIxobw3p gn7uglQm1SjDbZMEofiYclS pjUFY4h9FzJc71N66fHHqiT HRoPSIy HCWfVUZvqFyfrh0xoR4mTf6 +JDGzxDH4oTG0kO7mZlBmOj U0KEacF823PzWvoRXeXmsmD 82gQ0Sx dXA+FAFpEwa9GUPdmOzwDS5 lfQMvPLmeXk5bQSX5EfCvNv WeNPrwP7UsZLGsfrizptphn VD1FOSb RCJfnY94Ed5jxHqrZv4oNSU fWOA2ZVPlgIFwX4RmqA7tKo QoNFGiFKLcH7PtlEKwJAyoR 246IGxl QrT9KEHgfiPpQ7UuJWNuaTi rFrZ9f7A3Bw4FrGfpyFBySK 7yUgPjDRo3V7PhVcs4VDUhs VsnUZ4d bPGyDRwqWz6vtMsknUxaLX0 lDJIakahbw432DoSwy2mmTO AcmDFbFBxuLNO4C36mq7Y3F CMwMDAw KRT9oMZ3kJ6vwJixshukqXQ mdDsgdmVydGljYWwtYWxpZ2 23HKQxwMlvJiZLRqa3U5CpX qs7KGOw lPerNK8gzQCwDWscQl0rtHe skOprVG0xXZUetriem480Jp Sww0lqEFVanIOoFBtxKLS3G 03ux3X8 DTRsCFAlUQY6rDN8tU4dfDp nbjogbGVmdDsgdmVydGljYW tgGWdaV126WWNrbQswKr0CR mh2N1Ee Ipt9XQZocWwqZS0flJVpDSo hIb9djSmbzQdiCM5iLMQtcv pcj623VqIyz4ksSFFjeFEpA GltZXM7 T03kj8Y0IRMoKDAlQYS7nYS 0mD0qhBhyeqmirLLrhBeyfa EobRigFTkiDYuiN907IYKjv DsnPlBh eWVyOjwvdGQ+VR39bf71W7I hBfrnVbb4SNNjUUW0zSJ0tU 2lSYQuZTxjm4J8xJS4T9Bjh wAznc1b z0pxQEQz (more content not included)... Normal [facility] Comprehensive metabolic 2000 panelon 02-05-2023 Albumin [Mass/Vol] 3.7 g/dL Low 3.9-4.9 [facility] Comment on above: Order Comment: Speci men Type: BLOOD SPECIMENOrdering Facility: [facility] Address: [address] [address] Performed By: #### 2 4323-8 ####[facility] [id number] [place] [address] ALP [Catalytic activity/Vol] 105 U/L Normal 38-113 [facility] Comment on above: Order Comment: Speci men Type: BLOOD SPECIMENOrdering Facility: [facility] Address: [address] [address] Performed By: #### 2 4323-8 ####[facility] [id number] [place] [address] ALT [Catalytic activity/Vol] 11 U/L Normal 10-54 [facility] Comment on above: Order Comment: Speci men Type: BLOOD SPECIMENOrdering Facility: [facility] Address: [address] [address] Performed By: #### 2 4323-8 ####[facility] [id number] [place] [address] Anion gap [Moles/Vol] 10 mmol/L Normal 9-18 [facility] Comment on above: Order Comment: Speci men Type: BLOOD SPECIMENOrdering Facility: [facility] Address: [address] [place] [address] Performed By: #### 2 4323-8 ####[facility] [id number] [place] [address] AST [Catalytic activity/Vol] 14 U/L Normal 14-40 [facility] Comment on above: Order Comment: Speci men Type: BLOOD SPECIMENOrdering Facility: [facility] Address: [address] [place] [address] Performed By: #### 2 4323-8 ####[facility] [id number] [place] [address] Bilirubin [Mass/Vol] 0.8 mg/dL Normal 0.2-1.3 [facility] Comment on above: Order Comment: Speci men Type: BLOOD SPECIMENOrdering Facility: [facility] Address: [address] [place] [address] Performed By: #### 2 4323-8 ####[facility] [id number] [place] [address] Calcium [Mass/Vol] 9.2 mg/dL Normal 8.5-10.2 [facility] Comment on above: Order Comment: Speci men Type: BLOOD SPECIMENOrdering Facility: [facility] Address: [address] [place] [address] Performed By: #### 2 4323-8 ####[facility] [id number] [place] [address] Chloride [Moles/Vol] 107 mmol/L High 97-105 [facility] Comment on above: Order Comment: Speci men Type: BLOOD SPECIMENOrdering Facility: [facility] Address: [address] [address] Performed By: #### 2 4323-8 ####[facility] [id number] [place] [address] CO2 [Moles/Vol] 24 mmol/L Normal 22-30 [facility] Comment on above: Order Comment: Speci men Type: BLOOD SPECIMENOrdering Facility: [facility] Address: [address] [address] Performed By: #### 2 4323-8 ####[facility] [id number] [place] [address] Creatinine [Mass/Vol] 1.10 mg/dL Normal 0.73-1.22 [facility] Comment on above: Order Comment: Speci men Type: BLOOD SPECIMENOrdering Facility: [facility] Address: [address] [place] [address] Performed By: #### 2 4323-8 ####[facility] [id number] [place] [address] ESTIMATED GLOMERULAR FILTRATION RATE 72 mL/min/1.73m??? Normal >=60 [facility] Comment on above: Order Comment: Speci men Type: BLOOD SPECIMENOrdering Facility: [facility] Address: [address] [place] [address] Result Comment: Rebekah mated Glomerular Filtration Rate [...] actual GFR. Performed By: #### 2 4323-8 ####[facility] [id number] [place] [address] Glucose [Mass/Vol] 108 mg/dL High 74-99 [facility] Comment on above: Order Comment: Speci men Type: BLOOD SPECIMENOrdering Facility: [facility] Address: [address] [place] [address] Result Comment: The [employer] (ADA) provides guidance for cutoff [...] Standards of Medical Care in Diabetes 2016, [place] [employer]. Diabetes Care. 2016.39(Suppl 1). Performed By: #### 2 4323-8 ####[facility] [id number] [place] [address] Potassium [Moles/Vol] 3.4 mmol/L Low 3.7-5.1 [facility] Comment on above: Order Comment: Speci men Type: BLOOD SPECIMENOrdering Facility: [facility] Address: [address] [place] [address] Performed By: #### 2 4323-8 ####[facility] [id number] [place] [address] Protein [Mass/Vol] 5.9 g/dL Low 6.3-8.0 [facility] Comment on above: Order Comment: Speci men Type: BLOOD SPECIMENOrdering Facility: [facility] Address: [address] [place] [address] Performed By: #### 2 4323-8 ####[facility] [id number] [place] [address] Sodium [Moles/Vol] 141 mmol/L Normal 136-144 [facility] Comment on above: Order Comment: Speci men Type: BLOOD SPECIMENOrdering Facility: [facility] Address: [place] [address] Performed By: #### 2 4323-8 ####[facility] [id number] [place] [address] Urea nitrogen [Mass/Vol] 18 mg/dL Normal 9-24 [facility] Comment on above: Order Comment: Speci men Type: BLOOD SPECIMENOrdering Facility: [facility] Address: [place] [address] Performed By: #### 2 4323-8 ####[facility] [id number] [place] [address] CNOVon 02-04-2023 CNOV Normal [facility] Physician Orderon 02-01-2023 Physician Order [id number] CD:127 Normal [facility] Coding Summary.on 01-31-2023 Coding Summary. CD:[id number] Ww+ PGhlYWQ+GP4WBWTtJ36yhXB imY3lS3VUNWjGRhpcWVZTOO rMUoYlcnZpLE4vkYTgZKSu IC8+WB5kGYNtZbxnhSYmr8Z 0nTK6W92dsh7rDZdbpPO9QZ PgJgHxbbhxf6dfkHe0RMfaI mluOyBt ILAbdT83KMU7uN55Hm43aML thEApl2lucWv2QkWtIOCpQV I4xRgqHMzzn2GyTXNkI30aw MHga2R4 ZQDpzFvrvBScVfBhmWI9wI9 kMMutbcoho5ximbpvUoh3mr 24vJAoj3V7cGT9T1NghyJ6J GJvbGQg TnntyFGXnV1vulxdh2abihj mLlKsWJVvBVr5AGq5SPMdxF emBmTwOD19UQB1BAVbqjIxC 2FsLWFs iPqnByI1g2E5Wq3NX5CGByt pU2VPEJKSNFktdGV+PC90cj 68M8VmWfdlQdj8ECGsLAD9h MF8pN8g TMNuAHeaf2B5yFN1Z2BccwX dof2ma1fqTJMhDEkeV20kxI Zid1S8NORyxKU8KOYwfWnpU iBzaG93 Oyc+UWNwjJzlv6YnPrxow8a ks7qnkEg6CabmDLPewmLksF ovLTC0t3EeBe3wCJMufKT9h KH0cN3s TjUgRoF3NKvnM316ZwYtaBG kEvkbF38jM7TpyZV+PHRyPj u4TSDqbExsLF7lV4UaUPGjh mctbGVm aIaaKG5xMKYfmsdlUUHaqV2 mKQPpC4d6LqLmBoM3DWxjY6 JqINIjrubuVc15uH6cWzBfC dF7YFux Y8LczkQ4CAWdwFFcSTmzXIQ 3N20tt5O3TRKfGWIaKJT9vG I4xW0tkXpszhbccZSupDamj mVydGlj HHoxDApfK475EDMfpCenWmO vZGluZyBEYXRlOiAgMDQvMT MvMjAyMzwvdGQ+WONuLTJ1g WxlPSAn gKMoSPacKa2kjCmdwJqmGD4 kCEOnpjjbQTWzyX2mWRKnfS IcbHraEC4fPPJwjzfvs014V iAxMHB0 AEXpyFVtH8AyvP6aLjEzJUS vGSZpX9ShnNKfPZgzN747JS cfPxG5IIWfzmHiN6IbCFFkt WduOiB0 g3B6Uo3Bw8MrrodcL0WnoMD yNcWaDrzdQQy6J3KfHbbcoT I+DV25NHRvWF44NVy5YTV6q WxlPSdi AOIlE6XdkB1sCqOqDYQlTEN kOyc+PHRhYmxlIHdpZHRoPS wjVXLgQkSzlItiXG2rKx3yR GVyLWNv lCvwqZCuNpOrc9yiKLIhUJy yRF3usNwwT9UvmYJ9XIEus3 k7Sh91N26mV3VknNZ+PGNvb MN7nBB9 wJ7eIxZiRhS3DAyjO117MlI xxXCoTswqu9wic9ptzZk2Av X2LSHaviGbgClcLUP6y3GeH g01F45w IHdpZHRoPSIxNSUiIHZhbGl orz3vyN9cFo3+DIIliSY1uO E1wS8tVmUoZnF0POfoY914A nRvcCIv Tfweb8thd9bijWq3UtFpHXE ibuGpeBqtNHF0k1SaJc60O1 XufFfoe6HkDna3ag44pLSsp 1V6oYD5 A1AnUGUknfkirXMrkCteWR0 fDITbedsdRPKdkT6kFEXjF1 f5YzHdObE4YWmyN3IkmcA6Q GJvbGQg LQRwbCAYkX2mffplk7wppkc nTpOfOBObWRb5XFv5NBHtgV bxMwBiBWE8GgR2LNB9pRPzt N0sxGsq lszroS3pCev+KJI7hZRhpPD NBU8qIuawzQA+HYDiHAN0jE oeMQpqVOZqyV4lGMMoZ1k2C iAwLjA1 JBwaY4EfuaX8HZGhmUPxSUI tnAYRnX1wyzvhw2bfudbsJh WrDYYbBMz2LKm6MQUpkOhaH iBsZWZ0 StV1TNH2mENfeL0hhHthial tvK3oYhj+OeejiWzqURY0LG k5C6OuZks1YVPrdPryIW3zp GFkZGlu Ct4bkHlmnAwiUI4wZNYoxcd ax450CtRib2zjRPDpoSCqDV hyRUL5S01ia2Z5NGLaLBOcX JE0fYN1 rQ1sjPdktcnpnAQzwXcovoB bsJfgRBzcMZecE952ATNyeD gaGjOrMSn4G6IsAnx5LJFde PlgSF7f sEIkCAtgTb9yxRgqmFrySH3 rPDJvadcjm469FlJwk3nnGC TnxDIwYPbkKFQ4D76sx7E4S CMwMDAw EPJ7eYA4tO4bnHitmbxvvBT mdDsgdmVydGljYWwtYWxpZ2 94FDZjbQlaJkKmhRp2N6EuA oy3LWFn mBykAF7jnNOuNNguOu9glTa pvCgpFS6iTMZiouzso487Kz Qwy6miEEOezQOxBJaxQMM9I 75ny6J6 HZXxDPAzOPT6tJD3oF2mhJd nbjogbGVmdDsgdmVydGljYW zxONmaI321HZMxvVxdGiQsd GllbnQg ZQlrJCw2R5HjAsrmhTJ+PC9 8SQCoON73aJSnbJPkn7zwbI i5UlEhUVVwBXZ9zYodHMvgb 3JkZXIt X70rkPJag7B1DUVueAeiuWE lOwGqkNW4uS5aFBdcrwayz3 wrhbohJccvh3buma94pA62I 29sIHdp ZHRoPSIzMCUiIHZhbGlnbj0 mmH9kXe1+QCZiqIB3mCE2zJ 5sXONyBcX6OHliV150IeEft CIvPjxj v1hre3luuDv8DwS9DCWuziD cdFknVOI4u1EiQo65V92wGL dpZHRoPSIyMCUiIHZhbGlnb o5dmH9e Ii8+PMJybNZ6oHB7yU2oFzW hQkG1LPmhP020HvFmoVTvHt cbB85tG0NvaJH+HDSkDep4W CBzdHls HY8djGVpWPmbBf0qHPS5WcY xMbNfYYnzK7UlVTWhwrcmtp sdyQZ0AKNrXRFdvK09Rw8ol DogMTBw sWYQrU5qcokro1snnlaqUxY iNLGbIOk8OSz3MERkcTfrTw XfRFP8OmS1UAH8vISstP7ye Glnbjog uD4xX2LzPCQvlqcvBx62jG6 sPzHhGsP3BFiaCsh+V0FTSU 2EVMwdEB1GY0hFTRiaBHdws GQ+PHRk WIF1aRsrVGlkUONjjU9eRBI vL7e1NfKsGtX2XBauN3EgAV MljhwnDy33pG6rLbEeJdJ1P DbiT2Sw yiG1QRJmlOHrVRkrXTJ1Z45 vp5E3AWSuTQQqJZY0fAU8zJ 1hbGlnbjogbGVmdDsgdmVyd GljYWwt HOpwQ322JCYzpTvrPyStNjH 9XdA6GHG9E3BeEke2XNKmeZ qiMK8lxTFhTFwiOu5twMbvf IzhTK4f ZKFedyufWVMvwN9zDOEzsFZ ooMauGV5hNGXitrqui545Gu WmONG6OLXapJLzG6MkaB0rV iAjMDAw WLWhU0GqoYLvMImnZ374ULg uBzK2CZPquuEfV2XsVJRfgD nuJyY1c7L2Rm17LEBEFMMmz zwvdGQ+ XJTtGMA3mKcrHXllDRXyhU3 eANZkQ4m1SsWdPbE2SHmnY8 BgUVRkyoivKu26tP8vTyUdQ lV7QTfp D2MebwK0TWZvfKMnTAeaZUZ 6A93up5H6EZEbTWKkONT4fK E0zQ3gqSnrxmvuoIOkeMvmx mVydGlj XWaaWXogJ646JHKvnJqyTf1 wqJC6S2PlOlr0PHBqpEhrOJ 5ozKIiLAeyXp2jzSyfyKfzP Q1sMAZc qcusMBRvkW4nIXYonILpxPo yIV5vKXYokldcq456KuNbHW A9EFGvqOLoR5JrpW2jCbHlI DAwMDAw O9OfuFXwZDqzL323WQurJrF 3RJBrbhRwM8JgJURtbPfaMy Q6g6V3Xw1GuUJhDUZmIL62Z M72IZ33 N5KjKgrcuKZtiIX+PHRhYmx lIHdpZHRoPScxMDAlJyBzdH esCY7iEo1mWIVjWCEouXldr HNlOiBj h7tkEMEcVTqwZJ9ctTarW9P yuWA1TWPus6z3Pp27G58wO6 JvdXA+DYUscEV2mLO3dH6hH zAlIiB2 MPitR123RaVhjUYqMwkik0s so1sxfPk7SwGrESFqvzZfiI srHBC2j4JuZg03T88uGGfjG HRoPSIy NGSiUZLztVixqy0lwT9qUr6 +JCLdoFC6wTH5jW5tLrOkRl T5IPxuD624ZyEonZItDzdxB 60bS8Tk dXA+VOSxEpu9CKVxgEjuZF8 ehZIuLBphTv6sESL2IyEaFq NaQKjbJ7YnRGKhykutwkwzu AD1XYRp OXGeqY04Uk4rxSqjPc2uKRB iPZN7UWWlzTPkE3EpxN5pRe OuWUZsTKLyC6NlfUAqBXheI 246IGxl QuQ1JFZmzqUdI8DbYLWlhIj tAxZ3m6Q9Iz8HaQtboIJvKU 7rUvGiWXm1K9MoEow3VJByq TpwJE6r kSNyXJcwCb4gaSjsdCnuZN4 kGFXtgqqjl935VvYwj3feGK QkuTZgFWopJMA3F91zc3A5Q CMwMDAw MHQ3kMK6eE7khEzxyytaaTM mdDsgdmVydGljYWwtYWxpZ2 88PTIgjSfgCoVRPyk7C9BsN tn3AYUl lSqiEY9muDYvRLalAv6xmTe kwBkzGY5uDNDcuychf220Tp Dwa2jnVEXxgMXaGXtqXNC1K 67dj2B8 EIKkCVUkKZF6jPA3rI4dyWw nbjogbGVmdDsgdmVydGljYW esJQwnG494EPWxgKbiDu9DO vs6E3Cf Rcf5ULJzpIyxOE9brZVmQQs pNr9usGoovNlyRO3nOUPzsa uwx839RhRfy3qmGXOgnPYjE GltZXM7 R19qu3Y9THIePPWiJAX6qKL 7kV9qaWqzjkuwkQJarZdjiz BqbMlxJUnoIAxzA688AQRlg DsnPlBh eWVyOjwvdGQ+ZO05jt03B4W oKlebFov5JJJlQZA7hCR2qF 0wBZToXDdys4A8vKK3F3Szs oVybi4b q9eyBUCg (more content not included)... Normal [facility] Consultation Noteon 01-25-20 23 Consultation Note [id number] D:127 [facility]-23-2023 CNPN Normal [facility] Heart and Vascular Office/Cl inic Noteon 01-23-2023 [...] patient is scheduled for a Doppler ultrasound [facility], 01/22/2023. Echocardiogram is normal, but it's [...] after patient or guardian consented to allow [employer] to record this visit. SHAMAR photographic specialist and provider reviewed before signing. SHAMAR: [...] See Instruction (more content not included)... Normal [facility] Comment on above: Result Comment: Elec tronically [...] Stringer M.D. Transcribed by: VEENA Technologist: ELIE Normal [facility] CBC W Auto Differential pane l (Bld)on 01-22-2023 Basophils (Bld) [#/Vol] 0.05 10*3/uL Normal <0.11 [facility] Comment on above: Order Comment: Speci men Type: BLOOD SPECIMENOrdering Facility: [facility] Address: [address] [address] Performed By: #### 5 7021-8 ####[facility] [id number] [place] [address] Basophils/100 WBC (Bld) 0.5 % Normal [facility] Comment on above: Order Comment: Speci men Type: BLOOD SPECIMENOrdering Facility: [facility] Address: [address] [place] [address] Performed By: #### 5 7021-8 ####[facility] [id number] [place] [address] Differential cell count method Nom (Bld) Auto Normal [facility] Comment on above: Order Comment: Speci men Type: BLOOD SPECIMENOrdering Facility: [facility] Address: [address] [place] [address] Performed By: #### 5 7021-8 ####[facility] [id number] [place] [address] Eosinophils (Bld) [#/Vol] 0.12 10*3/uL Normal <0.46 [facility] Comment on above: Order Comment: Speci men Type: BLOOD SPECIMENOrdering Facility: [facility] Address: [address] [place] [address] Performed By: #### 5 7021-8 ####[facility] [id number] [place] [address] Eosinophils/100 WBC (Bld) 1.3 % Normal [facility] Comment on above: Order Comment: Speci men Type: BLOOD SPECIMENOrdering Facility: [facility] Address: [address] [place] [address] Performed By: #### 5 7021-8 ####[facility] [id number] [place] [address] Erythrocyte distribution width (RBC) [Ratio] 17.2 % High 11.5-15.0 [facility] Comment on above: Order Comment: Speci men Type: BLOOD SPECIMENOrdering Facility: [facility] Address: [address] [address] Performed By: #### 5 7021-8 ####[facility] [id number] [place] [address] Hematocrit (Bld) [Volume fraction] 37.2 % Low 39.0-51.0 [facility] Comment on above: Order Comment: Speci men Type: BLOOD SPECIMENOrdering Facility: [facility] Address: [address] [address] Performed By: #### 5 7021-8 ####[facility] [id number] [place] [address] Hemoglobin (Bld) [Mass/Vol] 12.3 g/dL Low 13.0-17.0 [facility] Comment on above: Order Comment: Speci men Type: BLOOD SPECIMENOrdering Facility: [facility] Address: [address] [address] Performed By: #### 5 7021-8 ####[facility] LABCLIA [id number] [place] [address] Immature granulocytes (Bld) [#/Vol] 0.05 10*3/uL Normal <0.10 [facility] Comment on above: Order Comment: Speci men Type: BLOOD SPECIMENOrdering Facility: [facility] Address: [address] [place] [address] Performed By: #### 5 7021-8 ####[facility] LABCLIA [id number] [place] [address] Immature granulocytes/100 WBC (Bld) 0.5 % Normal [facility] Comment on above: Order Comment: Speci men Type: BLOOD SPECIMENOrdering Facility: [facility] Address: [address] [address] Performed By: #### 5 7021-8 ####[facility] LABCLIA [id number] [place] [address] Lymphocytes (Bld) [#/Vol] 0.79 10*3/uL Low 1.00-4.00 [facility] Comment on above: Order Comment: Speci men Type: BLOOD SPECIMENOrdering Facility: [facility] Address: [address] [place] [address] Performed By: #### 5 7021-8 ####[facility] LABCLIA [id number] [place] [address] Lymphocytes/100 WBC (Bld) 8.6 % Normal [facility] Comment on above: Order Comment: Speci men Type: BLOOD SPECIMENOrdering Facility: [facility] Address: [address] [place] [address] Performed By: #### 5 7021-8 ####[facility] LABCLIA [id number] [place] [address] MCH (RBC) [Entitic mass] 33.9 pg Normal 26.0-34.0 [facility] Comment on above: Order Comment: Speci men Type: BLOOD SPECIMENOrdering Facility: [facility] Address: [address] [place] [address] Performed By: #### 5 7021-8 ####[facility] LABCLIA [id number] [place] [address] MCHC (RBC) [Mass/Vol] 33.1 g/dL Normal 30.5-36.0 [facility] Comment on above: Order Comment: Speci men Type: BLOOD SPECIMENOrdering Facility: [facility] Address: [address] [place] [address] Performed By: #### 5 7021-8 ####[facility] LABCLIA [id number] [place] [address] MCV (RBC) [Entitic vol] 102.5 fL High 80.0-100.0 [facility] Comment on above: Order Comment: Speci men Type: BLOOD SPECIMENOrdering Facility: [facility] Address: [address] [address] Performed By: #### 5 7021-8 ####[facility] LABCLIA [id number] [place] [address] Monocytes (Bld) [#/Vol] 0.82 10*3/uL Normal <0.87 [facility] Comment on above: Order Comment: Speci men Type: BLOOD SPECIMENOrdering Facility: [facility] Address: [address] [address] Performed By: #### 5 7021-8 ####[facility] LABCLIA [id number] [place] [address] Monocytes/100 WBC (Bld) 8.9 % Normal [facility] Comment on above: Order Comment: Speci men Type: BLOOD SPECIMENOrdering Facility: [facility] Address: [address] [place] [address] Performed By: #### 5 7021-8 ####[facility] LABCLIA [id number] [place] [address] Neutrophils (Bld) [#/Vol] 7.36 10*3/uL Normal 1.45-7.50 [facility] Comment on above: Order Comment: Speci men Type: BLOOD SPECIMENOrdering Facility: [facility] Address: [address] [address] Performed By: #### 5 7021-8 ####[facility] LABCLIA [id number] [place] [address] Neutrophils/100 WBC (Bld) 80.2 % Normal [facility] Comment on above: Order Comment: Speci men Type: BLOOD SPECIMENOrdering Facility: [facility] Address: [address] [place] [address] Performed By: #### 5 7021-8 ####[facility] LABCLIA [id number] [place] [address] Nucleated RBC (Bld) [#/Vol] 10*3/uL Normal <0.01 [facility] Comment on above: Order Comment: Speci men Type: BLOOD SPECIMENOrdering Facility: [facility] Address: [address] [place] [address] Performed By: #### 5 7021-8 ####[facility] LABCLIA [id number] [place] [address] Nucleated RBC/100 WBC (Bld) [Ratio] 0.0 /100 WBC Normal [facility] Comment on above: Order Comment: Speci men Type: BLOOD SPECIMENOrdering Facility: [facility] Address: [address] [place] [address] Performed By: #### 5 7021-8 ####[facility] LABIA [id number] [place] [address] Platelet mean volume (Bld) [Entitic vol] 10.1 fL Normal 9.0-12.7 [facility] Comment on above: Order Comment: Speci men Type: BLOOD SPECIMENOrdering Facility: [facility] Address: [address] [place] [address] Performed By: #### 5 7021-8 ####[facility] LABCLIA [id number] [place] [address] Platelets (Bld) [#/Vol] 113 10*3/uL Low 150-400 [facility] Comment on above: Order Comment: Speci men Type: BLOOD SPECIMENOrdering Facility: [facility] Address: [address] [address] Performed By: #### 5 7021-8 ####[facility] LABIA [id number] [place] [address] RBC (Bld) [#/Vol] 3.63 10*6/uL Low 4.20-6.00 [facility] Comment on above: Order Comment: Speci men Type: BLOOD SPECIMENOrdering Facility: [facility] Address: [address] [address] Performed By: #### 5 7021-8 ####[facility] LABIA [id number] [place] [address] WBC (Bld) [#/Vol] 9.19 10*3/uL Normal 3.70-11.00 [facility] Comment on above: Order Comment: Speci men Type: BLOOD SPECIMENOrdering Facility: [facility] Address: [address] [place] [address] Performed By: #### 5 7021-8 ####[facility] LABIA [id number] [place] [address] CEA SerPl-mCncon 01-22-2023 Carcinoembryonic Ag [Mass/Vol] 2.4 ng/mL Normal <=2.9 [facility] Comment on above: Order Comment: Speci men Type: BLOOD SPECIMENOrdering Facility: [facility] Address: [address] [place] [address] Result Comment: Carc inoembryonic antigen test is used as an aid in monitoring response to treatment or recurrence in patients with established colorectal, breast, lung, prostatic, pancreatic, and ovarian carcinomas. Clinical correlation is required.The Carcinoembryonic antigen test was performed using the [employer] Unicel DXI paramagnetic particle chemiluminescent immunoassay method. Results obtained with different assay methods or kits cannot be used interchangeably. Performed By: #### 2 039-6 ####[facility] LABCLIA [id number] [place] [id number] [place] CNCNPATEDon 01-22-2023 CNCNPATED Normal [facility] CNOVSPon 01-22-2023 CNOVSP Normal [facility] CNPNon 01-22-2023 CNPN Normal [facility] Comprehensive metabolic 2000 panelon 01-22-2023 Albumin [Mass/Vol] 3.8 g/dL Low 3.9-4.9 [facility] Comment on above: Order Comment: Speci men Type: BLOOD SPECIMENOrdering Facility: [facility] Address: [address] [address] Performed By: #### 2 4323-8 ####[facility] LABCLIA [id number] [place] [address] ALP [Catalytic activity/Vol] 96 U/L Normal 38-113 [facility] Comment on above: Order Comment: Speci men Type: BLOOD SPECIMENOrdering Facility: [facility] Address: [address] [address] Performed By: #### 2 4323-8 ####[facility] LABCLIA [id number] [place] [address] ALT [Catalytic activity/Vol] 10 U/L Normal 10-54 [facility] Comment on above: Order Comment: Speci men Type: BLOOD SPECIMENOrdering Facility: [facility] Address: [address] [address] Performed By: #### 2 4323-8 ####[facility] LABCLIA [id number] [place] [address] Anion gap [Moles/Vol] 9 mmol/L Normal 9-18 [facility] Comment on above: Order Comment: Speci men Type: BLOOD SPECIMENOrdering Facility: [facility] Address: [address] [address] Performed By: #### 2 4323-8 ####[facility] LABCLIA [id number] [place] [address] AST [Catalytic activity/Vol] 12 U/L Low 14-40 [facility] Comment on above: Order Comment: Speci men Type: BLOOD SPECIMENOrdering Facility: [facility] Address: [address] [place] [address] Performed By: #### 2 4323-8 ####[facility] LABCLIA [id number] [place] [address] Bilirubin [Mass/Vol] 0.9 mg/dL Normal 0.2-1.3 [facility] Comment on above: Order Comment: Speci men Type: BLOOD SPECIMENOrdering Facility: [facility] Address: [address] [address] Performed By: #### 2 4323-8 ####[facility] LABCLIA [id number] [place] [address] Calcium [Mass/Vol] 9.1 mg/dL Normal 8.5-10.2 [facility] Comment on above: Order Comment: Speci men Type: BLOOD SPECIMENOrdering Facility: [facility] Address: [address] [address] Performed By: #### 2 4323-8 ####[facility] LABCLIA [id number] [place] [address] Chloride [Moles/Vol] 103 mmol/L Normal 97-105 [facility] Comment on above: Order Comment: Speci men Type: BLOOD SPECIMENOrdering Facility: [facility] Address: [address] [address] Performed By: #### 2 4323-8 ####[facility] LABCLIA [id number] [place] [address] CO2 [Moles/Vol] 27 mmol/L Normal 22-30 [facility] Comment on above: Order Comment: Speci men Type: BLOOD SPECIMENOrdering Facility: [facility] Address: [address] [address] Performed By: #### 2 4323-8 ####[facility] LABCLIA [id number] [place] [address] Creatinine [Mass/Vol] 1.09 mg/dL Normal 0.73-1.22 [facility] Comment on above: Order Comment: Speci men Type: BLOOD SPECIMENOrdering Facility: [facility] Address: [address] [address] Performed By: #### 2 4323-8 ####[facility] LABCLIA [id number] [place] [address] ESTIMATED GLOMERULAR FILTRATION RATE 73 mL/min/1.73m??? Normal >=60 [facility] Comment on above: Order Comment: Nazario brooks Type: BLOOD SPECIMENOrdering Facility: [facility] Address: [address] [place] [address] Result Comment: Rebekah mated Glomerular Filtration Rate [...] actual GFR. Performed By: #### 2 4323-8 ####[facility] LABCLIA [id number] [place] [address] Glucose [Mass/Vol] 100 mg/dL High 74-99 [facility] Comment on above: Order Comment: Nazario brooks Type: BLOOD SPECIMENOrdering Facility: [facility] Address: [address] [place] [address] Result Comment: The [place] [employer] (ADA) provides guidance for cutoff [...] Standards of Medical Care in Diabetes 2016, [place] [employer]. Diabetes Care. 2016.39(Suppl 1). Performed By: #### 2 4323-8 ####[facility] LABCLIA [id number] [place] [address] Potassium [Moles/Vol] 4.1 mmol/L Normal 3.7-5.1 [facility] Comment on above: Order Comment: Speci men Type: BLOOD SPECIMENOrdering Facility: [facility] Address: [address] [place] [address] Performed By: #### 2 4323-8 ####[facility] LABCLIA [id number] [place] [address] Protein [Mass/Vol] 6.0 g/dL Low 6.3-8.0 [facility] Comment on above: Order Comment: Speci men Type: BLOOD SPECIMENOrdering Facility: [facility] Address: [address] [place] [address] Performed By: #### 2 4323-8 ####[facility] LABIA [id number] [place] [address] Sodium [Moles/Vol] 139 mmol/L Normal 136-144 [facility] Comment on above: Order Comment: Speci men Type: BLOOD SPECIMENOrdering Facility: [facility] Address: [address] [place] [address] Performed By: #### 2 4323-8 ####[facility] LABIA [id number] [place] [address] Urea nitrogen [Mass/Vol] 17 mg/dL Normal 9-24 [facility] Comment on above: Order Comment: Speci men Type: BLOOD SPECIMENOrdering Facility: [facility] Address: [address] [place] [address] Performed By: #### 2 4323-8 ####[facility] LABCLIA [id number] [place] [address] Consent for Treatmenton Consent for Treatment [id number] D:127 [facility] Physician Orderon 01-22-2023 Physician Order [id number]#1.00C D:127 [facility] CNPNon 01-18-2023 CNPN Normal [facility] Coding Summary.on 01-18-2023 Coding Summary. CD:[id number] Ww+ PGhlYWQ+FK7UMNDcH13boYZ pcD5bJ0JQTEzMJoeqGWLPVI eHKzTqkvXoRZ5uyQYuRXXe IC8+YN4vQOMfKblvvTBpv0D 3dLB3X95zne1gKBkmdWR7LD LdZzSzslxyu6nrvSs0YPyeK mluOyBt RBUcxS76ANF8hZ10Kh52sXO tgKMjm1nuvUk3DaMsZTAuQL L4gZmmZVzvn7JhWFGfZ09uw PDpd0M1 JVGitDvboTXqFwLgnVQ5eE5 iERoimbcyu5qfrsycVei9nm 07rOOlf0X5wST5H5HeybA6V GJvbGQg JnbdoHMAyI4cywcnr9litcn jRoDtFASmMJu5EMm4SPWqcG ehPrIkKR20SAS7PMJwjvNkC 2FsLWFs aNfxTrG0z6L8Oc2SU3EMJxj pV9KTXGOVNVnzrLX+PC90cj 01A8EbWmknAsy8VYOyGHI7w CG3vR5b GLVjZQlfg9I8kYX4Q1SoqjJ bga7jb6uhCJQeSIhlU95rcZ Dyp3B2IQQweOG9QEHriVitD iBzaG93 Oyc+IFXwyVnto2NoNoqar9y nx4sssQr8BmofXRFnxnXdkT ffTYJ8w9ZwLh1yFYGpeQQ7l GA1lP2g YePeJuT0MTkbD816PtWoaWM hRcluO41tZ5ZfdXK+PHRyPj j2VEVsyYiaOB4aG7SzQXPrz mctbGVm nOkpYZ4yXIKqdnwjLEKslW8 hYFGwO0e3YvXyYvL1QRoaU8 MoPRKdauhcUe97qK1cGhTyU wV4FWjo Y5RbbfN0ZTWtvZYhJGbzWYY 1U36cx0S1FXNgUPCbPPR2mK B6yP6sfXewymhhqFOjzAipy mVydGlj FSvqDZapY405NUDiuAnhLnC vZGluZyBEYXRlOiAgMDMvMz EvMjAyMzwvdGQ+EOAwRAG5z WxlPSAn nWEkOMydZg0kuVqqcFyjMB0 vWHSrpwucQIUeoB6xNPVgiX JobPzaUQ5aUSCpcdudc543W iAxMHB0 HLSzsNZtZ2TvlA2zDoVbTSG fXTCiX2CjjRWpJOwiY169SB beQxJ5YNEucrBqA3NxZRZwi WduOiB0 w7D6Jn1Gp4AngddoQ1JhfQJ dLfYiUxypNEt5R9EzJkjzdW I+AX91TAXdOT67VWy5CFN9k WxlPSdi WSTyA7McvD6rLlYzQWBeYGN kOyc+PHRhYmxlIHdpZHRoPS ykKLEeWwJilRjaSV4eVl1zT GVyLWNv xXlasKUlYbHuh8kuORDvFUo tXZ9cpPltT5PglCE7OKSam5 u3Bj08S54mN8WznGR+PGNvb GW7iKD2 mB4sGsXqHkQ0AXioZ860EuI puMTgTrxhp0otv0eslQa7Xq Z2FJWpeuFioVnyVZF1l1LwJ x77S78a IHdpZHRoPSIxNSUiIHZhbGl ygi5yuX7vGd5+QIBkbOG2jS R1sB3zCuOeXnL8JSicG791Q nRvcCIv Paxit5ycq1hssAj5LjSlLLZ zkzYevGcyPBS9a1ReFm61A1 JzmJxwm1HcSzd5iy58pJHek 2U8zMB3 Z6SzLMWodwoloEDvqMxuEC3 nOQJteyhjQXAczQ6fCCFsE2 a4PgVpLlO7IFxsL9YbbbK7R GJvbGQg UMXkgYZBxA1fylogc7yruib cIePzBPJgHVu6UBy1ICKiqG rbQhMzOZA0BzY7SLD5uDAwg T3ywKbk ovllsG8uDus+UWQ1cHIloSN GUC2sMusflNL+UVPcAWA2vQ kjASbgOFXgsZ7cYZCnK7l2U iAwLjA1 ZUovJ5WiihJ4FYIlxYNbUIG yjZKAgY7wnsijn0nbntszUe KiTURgVQk0UTw7EJBajDuzP iBsZWZ0 XfX5XBJ5xGComW8mbTianqj igK9iCvu+VusbbKeaNZG6BC j1O3MoUhy7ZFAfpEslTT4ls GFkZGlu Ik7phPcwbOujOS0yGNGohnt du366HdFyn1trCRIziCHuYB auRGZ2V81wp4E7HZBdOFQmU IL5aXW1 uB2faJgxxoufpTPodWuzqeE mgHiiFRnxEVgtD522BASlfL qdBmTvQHz8Y5RdRkb9LONht McvHD5f aKEbWMrzVh6muRoayKlmDK6 lHRMtjrlef531KgUzm9ueMW QuhZQhSZlzXLU0H46bh9H2B CMwMDAw JUC8hFE1wZ2ewTcpkdsufYV mdDsgdmVydGljYWwtYWxpZ2 29JCMiiFowXlUdhUb1Q9NxE ik2EEEe lXwwBO4ifUPjVBkbOc8woEu noWikJN4rJZGbgqwbl415Hc Rgm8ztUBCzyLUuOBxyPGW9X 65gh8T5 MWYtTQVtUBT0pEQ1rF3obWl nbjogbGVmdDsgdmVydGljYW nlYFinG364MXVxdNoxYvRzd GllbnQg JDmdAPq7L1KgQshusBA+PC9 6AIOvNQ88aFGkoGXbv6mlkM p1KgSfQBXiOBU5gHgqXXhnb 3JkZXIt D14ywCQhh4T9NWLemGrmkSX oSzVytOB2uJ5pZWlrgptxw8 ztnqinZtuga6idnd03cP32H 29sIHdp ZHRoPSIzMCUiIHZhbGlnbj0 izW5jJf4+OYBrsCR5gLN2hE 2eZWPhMbV2LMlwQ502NaHzp CIvPjxj g9zsl6azeJl7MtH8OGOglzI csAhbDKS4v2GxDp94T39aNW dpZHRoPSIyMCUiIHZhbGlnb t9drG0v Ii8+QKXlnSY6lYL8xR7hZqW gNrF2WYahH925EtOnjMGpZx coM57rS4UomDA+CRRgYli0Z CBzdHls XC2ajOAwSEbpPi2mSMK7WpG xXqUiNPlwO1KyDUPraimoch bvaYX3MJVbRXKjoY33Rz6fk DogMTBw vWHMuB8fjadgc1mwucziRyV bJIFmKGq7THu2EAPdnQdaOt MnARM0AuP8QSY0qADptW1xj Glnbjog qW0rV3CrXIFrpxvjGe29vS6 vYuYdSsY7KFuzQxu+V0FTSU 9AWFsgUL3IO3qGIBqeCJdta GQ+PHRk FSM2hPsbGKyaSSCjkY0iLEB oB0l9TpNtKjQ8XJxkT1RuBL NkmewsEv94dP0kCuJwQeX5V XbtT6If zhH2VHNfpFWhGJudCZR6L55 pt1X1QZYrQVNkRFM7vSV2lJ 1hbGlnbjogbGVmdDsgdmVyd GljYWwt UAhxM842SXWjkUwuWsSsSdW 0YaS8MIL9R5MrTjp2JRTnfE vdCT8neBErWBtsTv8baRzin FkcTZ1j TVDptsloHXFxyV3hXLOmaQK fbKcoOE0xJKAagbhpm389Fc GjWNJ5ZFVqbRFiE6KzwA6gJ iAjMDAw TZBnX4FoeFTjGNqlH394GDf sLpA7MPQanyTcC2VxDQSrlL tzQkP1v9P9Qs02WENCTVPoo zwvdGQ+ LJPsTZA8pUheOHteDVFrtV6 lQQXpY9e3DrKuOgM6CKbpF6 WiOMLxjksaTh78lS6pByXcU iA2UBsh U5LcxeQ8PSSynAWzWWegCWB 4M07eg3E8HVKkYJMfXIR0qJ R3rZ8iyRbmnsocnCZmmLmwf mVydGlj GPwbJKpcB786WUQmrCpkXo7 nlBO8K7KcHrb0VTYdoBjmJF 1jxJZkGEcsTm7ykYbgjXpcE D1cSKFr ljjpWJGpkU1hXIGywXYltTo qQB8jYTDjqqygd124CqTqRB R7LXCvvSDqP1YieT2nQvCnR DAwMDAw Z4SfxNKnAKzjI316RNthLjZ 5ILUytnGuD5RuYESlbLcaIt K1y4X0Qv0FiEErCPFrAI62E W51YC68 L0KvRfzxrWQrcLH+PHRhYmx lIHdpZHRoPScxMDAlJyBzdH qrKA0gNq8fOZFoZAJfjNpkv HNlOiBj s3xfAFAxYVguED7dpBrnR4G smVH4ANIch6f1Qp19H00iF5 JvdXA+KTOhrTZ2bST7mA2lG zAlIiB2 DVvwH643XnAugOOdPsthm3f va6yfiSk5RiZaMQFirmUvkE usFMU7u9EjPv78Y47aKAcmH HRoPSIy OCBeCZNrxYhnob9leM2ySz1 +SAAksLO2vUM5oT3jLdFeQn X7HRyjC133EmCaiBJkKgqfM 46iD0Gu dXA+LFHkTed4DNRftLolRA0 zyQWjQHmhAy2zZAR9YcMkVs XzWNyoE7EzAUOqgnrgzcxmx UH7NQMe BPBjeM79Ys0gdTofKn4hHIH cNNL5DVYpzZDaB3FbtP6rXf ChYKWaELLiV6HqlOLmUFueS 246IGxl VqS8UQChmzYwT1AqZENsnDr jUlX8y6T6Uf2LvZmiuRZaQM 4nPpFwEOk7O7HnLsz6HIMfb ZwkOZ9p iEWvHUdiFo1iiXqarHhqYA6 vEYKgfqyjb533AvPwg8bxJW VctGNfZXyoXCZ0V83oz8X0F CMwMDAw FMP4kDG5rI3dpOwprplwxXI mdDsgdmVydGljYWwtYWxpZ2 04WPTrkSuqGeYSRsw0S3DkK qs3ELTi oWqoIR1yhVPyCPufRm2eyNh wsTxeUK2oFLLvcdqpa220Xb Bby1ghIFHyzFAlWOjnIBM7M 55pn8A3 WQCoLHRoVQM8cTQ2aK5laXm nbjogbGVmdDsgdmVydGljYW voGZwuE360OSUqoTzqCa6LS qf2N9Bh Lqs1TFRifTieOB2wjEIsOTo xXw9lsHovgZpwQZ4aXUOfyx pjp032AgBor0uxXPMzqKFyF GltZXM7 U06dd8O8DDDlXWUsHAQ8jMT 5cT7eoWixhhsxcJTedMsoqu YsuPnpQEhmQXmxY223AQSwt DsnPlBh eWVyOjwvdGQ+SC49ae21I2R fHwtpWbi2RXEkEYQ8mJV2mC 8aILLfYWnvn9Z8dBO1J4Jml tVbuw7h h4dnNAWl (more content not included)... Normal [facility] CNPNon 01-14-2023 CNPN Normal [facility] Consent for Treatmenton 12-20 Consent for Treatment [id number] D:127 Normal [facility] Consultation Noteon 01-10-20 Consultation Note [id number] :127 Normal [facility] Basic metabolic 2000 panelon 01-08-2023 Anion gap [Moles/Vol] 11 mmol/L Normal 9-18 [facility] Comment on above: Order Comment: Speci men Type: BLOOD SPECIMENOrdering Facility: [facility] Address: [address] [place] [address] Performed By: #### 2 4321-2 ####[facility] [id number] [place] [address] Calcium [Mass/Vol] 9.3 mg/dL Normal 8.5-10.2 [facility] Comment on above: Order Comment: Speci men Type: BLOOD SPECIMENOrdering Facility: [facility] Address: [address] [address] Performed By: #### 2 4321-2 ####[facility] [id number] [place] [address] Chloride [Moles/Vol] 106 mmol/L High 97-105 [facility] Comment on above: Order Comment: Speci men Type: BLOOD SPECIMENOrdering Facility: [facility] Address: [address] [address] Performed By: #### 2 4321-2 ####[facility] [id number] [place] [address] CO2 [Moles/Vol] 25 mmol/L Normal 22-30 [facility] Comment on above: Order Comment: Speci men Type: BLOOD SPECIMENOrdering Facility: [facility] Address: [address] [place] [address] Performed By: #### 2 4321-2 ####[facility] [id number] [place] [address] Creatinine [Mass/Vol] 1.12 mg/dL Normal 0.73-1.22 [facility] Comment on above: Order Comment: Speci men Type: BLOOD SPECIMENOrdering Facility: [facility] Address: [address] [place] [address] Performed By: #### 2 4321-2 ####[facility] [id number] [place] [address] ESTIMATED GLOMERULAR FILTRATION RATE 71 mL/min/1.73m??? Normal >=60 [facility] Comment on above: Order Comment: Speci men Type: BLOOD SPECIMENOrdering Facility: [facility] Address: [address] [place] [address] Result Comment: Rebekah mated Glomerular Filtration Rate [...] actual GFR. Performed By: #### 2 4321-2 ####[facility] [id number] [place] [address] Glucose [Mass/Vol] 118 mg/dL High 74-99 [facility] Comment on above: Order Comment: Speci men Type: BLOOD SPECIMENOrdering Facility: [facility] Address: [address] [address] Result Comment: The [employer] (ADA) provides guidance for cutoff [...] Standards of Medical Care in Diabetes 2016, [place] [employer]. Diabetes Care. 2016.39(Suppl 1). Performed By: #### 2 4321-2 ####[facility] [id number] [place] [address] Potassium [Moles/Vol] 3.9 mmol/L Normal 3.7-5.1 [facility] Comment on above: Order Comment: Speci men Type: BLOOD SPECIMENOrdering Facility: [facility] Address: [address] [address] Performed By: #### 2 4321-2 ####[facility] [id number] [place] [address] Sodium [Moles/Vol] 142 mmol/L Normal 136-144 [facility] Comment on above: Order Comment: Speci men Type: BLOOD SPECIMENOrdering Facility: [facility] Address: [address] [address] Performed By: #### 2 4321-2 ####[facility] [id number] [place] [address] Urea nitrogen [Mass/Vol] 18 mg/dL Normal 9-24 [facility] Comment on above: Order Comment: Speci men Type: BLOOD SPECIMENOrdering Facility: [facility] Address: [address] Performed By: #### 2 4321-2 ####[facility] [id number] [place] [address] Anion gap [Moles/Vol] 11 mmol/L 9 - 18 mmol/L [facility] Calcium [Mass/Vol] 9.3 mg/dL 8.5 - 10. 2 mg/dL [facility] Chloride [Moles/Vol] 106 mmol/L High 97 - 10 5 mmol/L [facility] CO2 [Moles/Vol] 25 mmol/L 22 - 30 mmol/L [facility] Creatinine [Mass/Vol] 1.12 mg/dL 0.73 - 1.22 mg/dL [facility] Estimated Glomerular Filtration Rate 71 mL/min/1.73m >=60 mL/min/1.73 m [facility] Glucose [Mass/Vol] 118 mg/dL High 74 - 99 mg/dL [facility] Potassium [Moles/Vol] 3.9 mmol/L 3.7 - 5.1 mmol/L [facility] Sodium [Moles/Vol] 142 mmol/L 136 - 144 mmol/L [facility] Urea nitrogen [Mass/Vol] 18 mg/dL 9 - 24 mg/dL [facility] CBC W Auto Differential pane l (Bld)on 01-08-2023 Basophils (Bld) [#/Vol] 0.06 10*3/uL Normal <0.11 [facility] Comment on above: Order Comment: Speci men Type: BLOOD SPECIMENOrdering Facility: [facility] Address: [address] [address] Performed By: #### 5 7021-8 ####[facility]CL[facility] [id number] [place] [address] Basophils/100 WBC (Bld) 0.8 % Normal [facility] Comment on above: Order Comment: Speci men Type: BLOOD SPECIMENOrdering Facility: [facility] Address: [address] [address] Performed By: #### 5 7021-8 ####[facility]CL[facility] [id number] [place] [address] Differential cell count method Nom (Bld) Auto Normal [facility] Comment on above: Order Comment: Speci men Type: BLOOD SPECIMENOrdering Facility: [facility] Address: [address] [place] [address] Performed By: #### 5 7021-8 ####[facility]CL[facility] [id number] [place] [address] Eosinophils (Bld) [#/Vol] 0.33 10*3/uL Normal <0.46 [facility] Comment on above: Order Comment: Speci men Type: BLOOD SPECIMENOrdering Facility: [facility] Address: [address] [place] [address] Performed By: #### 5 7021-8 ####[facility]CL[facility] [id number] [place] [address] Eosinophils/100 WBC (Bld) 4.3 % Normal [facility] Comment on above: Order Comment: Speci men Type: BLOOD SPECIMENOrdering Facility: [facility] Address: [address] [place] [address] Performed By: #### 5 7021-8 ####[facility]CL[facility] [id number] [place] [address] Erythrocyte distribution width (RBC) [Ratio] 16.3 % High 11.5-15.0 [facility] Comment on above: Order Comment: Speci men Type: BLOOD SPECIMENOrdering Facility: [facility] Address: [address] [place] [address] Performed By: #### 5 7021-8 ####[facility] [id number] [place] [address] Hematocrit (Bld) [Volume fraction] 36.0 % Low 39.0-51.0 [facility] Comment on above: Order Comment: Speci men Type: BLOOD SPECIMENOrdering Facility: [facility] Address: [address] [place] [address] Performed By: #### 5 7021-8 ####[facility] [id number] [place] [address] Hemoglobin (Bld) [Mass/Vol] 11.9 g/dL Low 13.0-17.0 [facility] Comment on above: Order Comment: Speci men Type: BLOOD SPECIMENOrdering Facility: [facility] Address: [address] [place] [address] Performed By: #### 5 7021-8 ####[facility] [id number] [place] [address] Immature granulocytes (Bld) [#/Vol] 0.03 10*3/uL Normal <0.10 [facility] Comment on above: Order Comment: Speci men Type: BLOOD SPECIMENOrdering Facility: [facility] Address: [address] [place] [address] Performed By: #### 5 7021-8 ####[facility] [id number] [place] [address] Immature granulocytes/100 WBC (Bld) 0.4 % Normal [facility] Comment on above: Order Comment: Speci men Type: BLOOD SPECIMENOrdering Facility: [facility] Address: [address] [place] [address] Performed By: #### 5 7021-8 ####[facility] [id number] [place] [address] Lymphocytes (Bld) [#/Vol] 0.71 10*3/uL Low 1.00-4.00 [facility] Comment on above: Order Comment: Speci men Type: BLOOD SPECIMENOrdering Facility: [facility] Address: [address] [place] [address] Performed By: #### 5 7021-8 ####[facility]CL[facility] [id number] [place] [address] Lymphocytes/100 WBC (Bld) 9.3 % Normal [facility] Comment on above: Order Comment: Speci men Type: BLOOD SPECIMENOrdering Facility: [facility] Address: [address] [address] Performed By: #### 5 7021-8 ####[facility]CL[facility] [id number] [place] [address] MCH (RBC) [Entitic mass] 33.4 pg Normal 26.0-34.0 [facility] Comment on above: Order Comment: Speci men Type: BLOOD SPECIMENOrdering Facility: [facility] Address: [address] [address] Performed By: #### 5 7021-8 ####[facility]CL[facility] [id number] [place] [address] MCHC (RBC) [Mass/Vol] 33.1 g/dL Normal 30.5-36.0 [facility] Comment on above: Order Comment: Speci men Type: BLOOD SPECIMENOrdering Facility: [facility] Address: [address] [address] Performed By: #### 5 7021-8 ####[facility] LABIA [id number] [place] [address] MCV (RBC) [Entitic vol] 101.1 fL High 80.0-100.0 [facility] Comment on above: Order Comment: Speci men Type: BLOOD SPECIMENOrdering Facility: [facility] Address: [address] [address] Performed By: #### 5 7021-8 ####[facility] LABIA [id number] [place] [address] Monocytes (Bld) [#/Vol] 0.74 10*3/uL Normal <0.87 [facility] Comment on above: Order Comment: Speci men Type: BLOOD SPECIMENOrdering Facility: [facility] Address: [address] [place] [address] Performed By: #### 5 7021-8 ####[facility] [id number] [place] [address] Monocytes/100 WBC (Bld) 9.7 % Normal [facility] Comment on above: Order Comment: Speci men Type: BLOOD SPECIMENOrdering Facility: [facility] Address: [address] [place] [address] Performed By: #### 5 7021-8 ####[facility]CL[facility] [id number] [place] [address] Neutrophils (Bld) [#/Vol] 5.76 10*3/uL Normal 1.45-7.50 [facility] Comment on above: Order Comment: Speci men Type: BLOOD SPECIMENOrdering Facility: [facility] Address: [address] [place] [address] Performed By: #### 5 7021-8 ####[facility] [id number] [place] [address] Neutrophils/100 WBC (Bld) 75.5 % Normal [facility] Comment on above: Order Comment: Speci men Type: BLOOD SPECIMENOrdering Facility: [facility] Address: [address] [place] [address] Performed By: #### 5 7021-8 ####[facility]CL[facility] [id number] [place] [address] Nucleated RBC (Bld) [#/Vol] 10*3/uL Normal <0.01 [facility] Comment on above: Order Comment: Speci men Type: BLOOD SPECIMENOrdering Facility: [facility] Address: [address] [place] [address] Performed By: #### 5 7021-8 ####[facility] [id number] [place] [address] Nucleated RBC/100 WBC (Bld) [Ratio] 0.0 /100 WBC Normal [facility] Comment on above: Order Comment: Speci men Type: BLOOD SPECIMENOrdering Facility: [facility] Address: [address] [place] [address] Performed By: #### 5 7021-8 ####[facility]CL[facility] [id number] [place] [address] Platelet mean volume (Bld) [Entitic vol] 10.1 fL Normal 9.0-12.7 [facility] Comment on above: Order Comment: Speci men Type: BLOOD SPECIMENOrdering Facility: [facility] Address: [address] [place] [address] Performed By: #### 5 7021-8 ####[facility]CL[facility] [id number] [place] [address] Platelets (Bld) [#/Vol] 176 10*3/uL Normal 150-400 [facility] Comment on above: Order Comment: Speci men Type: BLOOD SPECIMENOrdering Facility: [facility] Address: [address] [place] [address] Performed By: #### 5 7021-8 ####[facility]CL[facility] [id number] [place] [address] RBC (Bld) [#/Vol] 3.56 10*6/uL Low 4.20-6.00 [facility] Comment on above: Order Comment: Speci men Type: BLOOD SPECIMENOrdering Facility: [facility] Address: [address] [place] [address] Performed By: #### 5 7021-8 ####[facility]CL[facility] [id number] [place] [address] WBC (Bld) [#/Vol] 7.63 10*3/uL Normal 3.70-11.00 [facility] Comment on above: Order Comment: Speci men Type: BLOOD SPECIMENOrdering Facility: [facility] Address: [address] [place] [address] Performed By: #### 5 7021-8 ####[facility]CL[facility] [id number] [place] [address] Basophils (Bld) [#/Vol] 0.06 10*3/uL <0.11 k/uL [facility] Basophils/100 WBC (Bld) 0.8 % [facility] Differential cell count method Nom (Bld) Auto [facility] Eosinophils (Bld) [#/Vol] 0.33 10*3/uL <0.46 k/uL [facility] Eosinophils/100 WBC (Bld) 4.3 % [facility] Erythrocyte distribution width (RBC) [Ratio] 16.3 % High 11.5 - 15.0 % [facility] Hematocrit (Bld) [Volume fraction] 36.0 % Low 39.0 - 51.0 % [facility] Hemoglobin (Bld) [Mass/Vol] 11.9 g/dL Low 13.0 - 17.0 g/dL [facility] Immature granulocytes (Bld) [#/Vol] 0.03 10*3/uL <0.10 k/uL [facility] Immature granulocytes/100 WBC (Bld) 0.4 % [facility] Lymphocytes (Bld) [#/Vol] 0.71 10*3/uL Low 1.00 - 4.00 k/uL [facility] Lymphocytes/100 WBC (Bld) 9.3 % [facility] MCH (RBC) [Entitic mass] 33.4 pg 26.0 - 34.0 pg [facility] MCHC (RBC) [Mass/Vol] 33.1 g/dL 30.5 - 36.0 g/dL [facility] MCV (RBC) [Entitic vol] 101.1 fL High 80.0 - 100.0 fL [facility] Monocytes (Bld) [#/Vol] 0.74 10*3/uL <0.87 k/uL [facility] Monocytes/100 WBC (Bld) 9.7 % [facility] Neutrophils (Bld) [#/Vol] 5.76 10*3/uL 1.45 - 7.50 k/uL [facility] Neutrophils/100 WBC (Bld) 75.5 % [facility] Nucleated RBC (Bld) [#/Vol] <0.01 k/uL [facility] Nucleated RBC/100 WBC (Bld) [Ratio] 0.0 /100 WBC [facility] Platelet mean volume (Bld) [Entitic vol] 10.1 fL 9.0 - 12.7 fL [facility] Platelets (Bld) [#/Vol] 176 10*3/uL 150 - 400 k/uL [facility] RBC (Bld) [#/Vol] 3.56 10*6/uL Low 4.20 - 6.0 0 m/uL [facility] WBC (Bld) [#/Vol] 7.63 10*3/uL 3.70 - 11.00 k/uL [facility] CNCNPATEDon 01-08-2023 CNCNPATED Normal [facility] CNOVSPon 01-08-2023 CNOVSP Normal [facility] CNPNon 12-28-2022 CNPN Normal [facility] CBC W Auto Differential pane l (Bld)on 12-25-2022 Basophils (Bld) [#/Vol] 0.06 10*3/uL Normal <0.11 [facility] Comment on above: Order Comment: Speci men Type: BLOOD SPECIMENOrdering Facility: [facility] Address: [address] [address] Performed By: #### 5 7021-8 ####[facility] [id number] [place] [address] Basophils/100 WBC (Bld) 0.9 % Normal [facility] Comment on above: Order Comment: Speci men Type: BLOOD SPECIMENOrdering Facility: [facility] Address: [address] [place] [address] Performed By: #### 5 7021-8 ####[facility]CL[facility] [id number] [place] [address] Differential cell count method Nom (Bld) Auto Normal [facility] Comment on above: Order Comment: Speci men Type: BLOOD SPECIMENOrdering Facility: [facility] Address: [address] [address] Performed By: #### 5 7021-8 ####[facility] LABIA [id number] [place] [address] Eosinophils (Bld) [#/Vol] 0.25 10*3/uL Normal <0.46 [facility] Comment on above: Order Comment: Speci men Type: BLOOD SPECIMENOrdering Facility: [facility] Address: [address] [place] [address] Performed By: #### 5 7021-8 ####[facility]CL[facility] [id number] [place] [address] Eosinophils/100 WBC (Bld) 3.6 % Normal [facility] Comment on above: Order Comment: Speci men Type: BLOOD SPECIMENOrdering Facility: [facility] Address: [address] [place] [address] Performed By: #### 5 7021-8 ####[facility]CL[facility] [id number] [place] [address] Erythrocyte distribution width (RBC) [Ratio] 17.8 % High 11.5-15.0 [facility] Comment on above: Order Comment: Speci men Type: BLOOD SPECIMENOrdering Facility: [facility] Address: [address] [place] [address] Performed By: #### 5 7021-8 ####[facility]CL[facility] [id number] [place] [address] Hematocrit (Bld) [Volume fraction] 39.4 % Normal 39.0-51.0 [facility] Comment on above: Order Comment: Speci men Type: BLOOD SPECIMENOrdering Facility: [facility] Address: [address] [place] [address] Performed By: #### 5 7021-8 ####[facility]CL[facility] [id number] [place] [address] Hemoglobin (Bld) [Mass/Vol] 13.2 g/dL Normal 13.0-17.0 [facility] Comment on above: Order Comment: Speci men Type: BLOOD SPECIMENOrdering Facility: [facility] Address: [address] [address] Performed By: #### 5 7021-8 ####[facility]CL[facility] [id number] [place] [address] Immature granulocytes (Bld) [#/Vol] 0.05 10*3/uL Normal <0.10 [facility] Comment on above: Order Comment: Speci men Type: BLOOD SPECIMENOrdering Facility: [facility] Address: [address] [address] Performed By: #### 5 7021-8 ####[facility]CL[facility] [id number] [place] [address] Immature granulocytes/100 WBC (Bld) 0.7 % Normal [facility] Comment on above: Order Comment: Speci men Type: BLOOD SPECIMENOrdering Facility: [facility] Address: [address] [place] [address] Performed By: #### 5 7021-8 ####[facility]CL[facility] [id number] [place] [address] Lymphocytes (Bld) [#/Vol] 0.83 10*3/uL Low 1.00-4.00 [facility] Comment on above: Order Comment: Speci men Type: BLOOD SPECIMENOrdering Facility: [facility] Address: [address] [place] [address] Performed By: #### 5 7021-8 ####[facility]CL[facility] [id number] [place] [address] Lymphocytes/100 WBC (Bld) 11.9 % Normal [facility] Comment on above: Order Comment: Speci men Type: BLOOD SPECIMENOrdering Facility: [facility] Address: [address] [place] [address] Performed By: #### 5 7021-8 ####[facility]CL[facility] [id number] [place] [address] MCH (RBC) [Entitic mass] 33.8 pg Normal 26.0-34.0 [facility] Comment on above: Order Comment: Speci men Type: BLOOD SPECIMENOrdering Facility: [facility] Address: [address] [address] Performed By: #### 5 7021-8 ####[facility]CLIA [id number] [place] [address] MCHC (RBC) [Mass/Vol] 33.5 g/dL Normal 30.5-36.0 [facility] Comment on above: Order Comment: Speci men Type: BLOOD SPECIMENOrdering Facility: [facility] Address: [address] [address] Performed By: #### 5 7021-8 ####[facility] LABIA [id number] [place] [address] MCV (RBC) [Entitic vol] 100.8 fL High 80.0-100.0 [facility] Comment on above: Order Comment: Speci men Type: BLOOD SPECIMENOrdering Facility: [facility] Address: [address] [address] Performed By: #### 5 7021-8 ####[facility]CL[facility] [id number] [place] [address] Monocytes (Bld) [#/Vol] 0.74 10*3/uL Normal <0.87 [facility] Comment on above: Order Comment: Speci men Type: BLOOD SPECIMENOrdering Facility: [facility] Address: [address] [address] Performed By: #### 5 7021-8 ####[facility] LABIA [id number] [place] [address] Monocytes/100 WBC (Bld) 10.6 % Normal [facility] Comment on above: Order Comment: Speci men Type: BLOOD SPECIMENOrdering Facility: [facility] Address: [address] [place] [address] Performed By: #### 5 7021-8 ####[facility]CL[facility] [id number] [place] [address] Neutrophils (Bld) [#/Vol] 5.03 10*3/uL Normal 1.45-7.50 [facility] Comment on above: Order Comment: Speci men Type: BLOOD SPECIMENOrdering Facility: [facility] Address: [address] [place] [address] Performed By: #### 5 7021-8 ####[facility]CL[facility] [id number] [place] [address] Neutrophils/100 WBC (Bld) 72.3 % Normal [facility] Comment on above: Order Comment: Speci men Type: BLOOD SPECIMENOrdering Facility: [facility] Address: [address] [place] [address] Performed By: #### 5 7021-8 ####[facility]CL[facility] [id number] [place] [address] Nucleated RBC (Bld) [#/Vol] 10*3/uL Normal <0.01 [facility] Comment on above: Order Comment: Speci men Type: BLOOD SPECIMENOrdering Facility: [facility] Address: [address] [place] [address] Performed By: #### 5 7021-8 ####[facility]CL[facility] [id number] [place] [address] Nucleated RBC/100 WBC (Bld) [Ratio] 0.0 /100 WBC Normal [facility] Comment on above: Order Comment: Speci men Type: BLOOD SPECIMENOrdering Facility: [facility] Address: [address] [place] [address] Performed By: #### 5 7021-8 ####[facility]CL[facility] [id number] [place] [address] Platelet mean volume (Bld) [Entitic vol] 10.0 fL Normal 9.0-12.7 [facility] Comment on above: Order Comment: Speci men Type: BLOOD SPECIMENOrdering Facility: [facility] Address: [address] [place] [address] Performed By: #### 5 7021-8 ####[facility]CL[facility] [id number] [place] [address] Platelets (Bld) [#/Vol] 163 10*3/uL Normal 150-400 [facility] Comment on above: Order Comment: Speci men Type: BLOOD SPECIMENOrdering Facility: [facility] Address: [address] [place] [address] Performed By: #### 5 7021-8 ####[facility] LABIA [id number] [place] [address] RBC (Bld) [#/Vol] 3.91 10*6/uL Low 4.20-6.00 [facility] Comment on above: Order Comment: Speci men Type: BLOOD SPECIMENOrdering Facility: [facility] Address: [address] [place] [address] Performed By: #### 5 7021-8 ####[facility]IA [id number] [place] [address] WBC (Bld) [#/Vol] 6.96 10*3/uL Normal 3.70-11.00 [facility] Comment on above: Order Comment: Speci men Type: BLOOD SPECIMENOrdering Facility: [facility] Address: [address] [place] [address] Performed By: #### 5 7021-8 ####[facility]IA [id number] [place] [address] Basophils (Bld) [#/Vol] 0.06 10*3/uL <0.11 k/uL [facility] Basophils/100 WBC (Bld) 0.9 % [facility] Differential cell count method Nom (Bld) Auto [facility] Eosinophils (Bld) [#/Vol] 0.25 10*3/uL <0.46 k/uL [facility] Eosinophils/100 WBC (Bld) 3.6 % [facility] Erythrocyte distribution width (RBC) [Ratio] 17.8 % High 11.5 - 15.0 % [facility] Hematocrit (Bld) [Volume fraction] 39.4 % 39.0 - 51.0 % [facility] Hemoglobin (Bld) [Mass/Vol] 13.2 g/dL 13.0 - 17.0 g/dL [facility] Immature granulocytes (Bld) [#/Vol] 0.05 10*3/uL <0.10 k/uL [facility] Immature granulocytes/100 WBC (Bld) 0.7 % [facility] Lymphocytes (Bld) [#/Vol] 0.83 10*3/uL Low 1.00 - 4.00 k/uL [facility] Lymphocytes/100 WBC (Bld) 11.9 % [facility] MCH (RBC) [Entitic mass] 33.8 pg 26.0 - 34.0 pg [facility] MCHC (RBC) [Mass/Vol] 33.5 g/dL 30.5 - 36.0 g/dL [facility] MCV (RBC) [Entitic vol] 100.8 fL High 80.0 - 100.0 fL [facility] Monocytes (Bld) [#/Vol] 0.74 10*3/uL <0.87 k/uL [facility] Monocytes/100 WBC (Bld) 10.6 % [facility] Neutrophils (Bld) [#/Vol] 5.03 10*3/uL 1.45 - 7.50 k/uL [facility] Neutrophils/100 WBC (Bld) 72.3 % [facility] Nucleated RBC (Bld) [#/Vol] <0.01 k/uL [facility] Nucleated RBC/100 WBC (Bld) [Ratio] 0.0 /100 WBC [facility] Platelet mean volume (Bld) [Entitic vol] 10.0 fL 9.0 - 12.7 fL [facility] Platelets (Bld) [#/Vol] 163 10*3/uL 150 - 400 k/uL [facility] RBC (Bld) [#/Vol] 3.91 10*6/uL Low 4.20 - 6.0 0 m/uL [facility] WBC (Bld) [#/Vol] 6.96 10*3/uL 3.70 - 11.00 k/uL [facility] CNOVSPon 12-25-2022 CNOVSP Normal [facility] Comprehensive metabolic 2000 panelon 12-25-2022 Albumin [Mass/Vol] 4.1 g/dL Normal 3.9-4.9 [facility] Comment on above: Order Comment: Speci men Type: BLOOD SPECIMENOrdering Facility: [facility] Address: [address] [place] [address] Performed By: #### 2 4323-8 ####[facility]CL[facility] [id number] [place] [address] ALP [Catalytic activity/Vol] 83 U/L Normal 38-113 [facility] Comment on above: Order Comment: Speci men Type: BLOOD SPECIMENOrdering Facility: [facility] Address: [address] [place] [address] Performed By: #### 2 4323-8 ####[facility]CL[facility] [id number] [place] [address] ALT [Catalytic activity/Vol] 7 U/L Low 10-54 [facility] Comment on above: Order Comment: Speci men Type: BLOOD SPECIMENOrdering Facility: [facility] Address: [address] [place] [address] Performed By: #### 2 4323-8 ####[facility] [id number] [place] [address] Anion gap [Moles/Vol] 10 mmol/L Normal 9-18 [facility] Comment on above: Order Comment: Speci men Type: BLOOD SPECIMENOrdering Facility: [facility] Address: [address] [place] [address] Performed By: #### 2 4323-8 ####[facility]CL[facility] [id number] [place] [address] AST [Catalytic activity/Vol] 15 U/L Normal 14-40 [facility] Comment on above: Order Comment: Speci men Type: BLOOD SPECIMENOrdering Facility: [facility] Address: [address] [address] Performed By: #### 2 4323-8 ####[facility] [facility] [id number] [place] [address] Bilirubin [Mass/Vol] 0.5 mg/dL Normal 0.2-1.3 [facility] Comment on above: Order Comment: Speci men Type: BLOOD SPECIMENOrdering Facility: [facility] Address: [address] [address] Performed By: #### 2 4323-8 ####[facility]CL[facility] [id number] [place] [address] Calcium [Mass/Vol] 9.6 mg/dL Normal 8.5-10.2 [facility] Comment on above: Order Comment: Speci men Type: BLOOD SPECIMENOrdering Facility: [facility] Address: [address] [place] [address] Performed By: #### 2 4323-8 ####[facility]CL[facility] [id number] [place] [address] Chloride [Moles/Vol] 105 mmol/L Normal 97-105 [facility] Comment on above: Order Comment: Speci men Type: BLOOD SPECIMENOrdering Facility: [facility] Address: [address] [address] Performed By: #### 2 4323-8 ####[facility]CL[facility] [id number] [place] [address] CO2 [Moles/Vol] 28 mmol/L Normal 22-30 [facility] Comment on above: Order Comment: Speci men Type: BLOOD SPECIMENOrdering Facility: [facility] Address: [address] [place] [address] Performed By: #### 2 4323-8 ####[facility]CL[facility] [id number] [place] [address] Creatinine [Mass/Vol] 1.23 mg/dL High 0.73-1.22 [facility] Comment on above: Order Comment: Nazario brooks Type: BLOOD SPECIMENOrdering Facility: [facility] Address: [address] [phone] Performed By: #### 2 4323-8 ####[facility] LABCL[facility] [id number] [place] [address] ESTIMATED GLOMERULAR FILTRATION RATE 63 mL/min/1.73m??? Normal >=60 [facility] Comment on above: Order Comment: Nazario brooks Type: BLOOD SPECIMENOrdering Facility: [facility] Address: [address] [place] [address] Result Comment: Rebekah mated Glomerular Filtration Rate [...] actual GFR. Performed By: #### 2 4323-8 ####[facility] [id number] [place] [address] Glucose [Mass/Vol] 86 mg/dL Normal 74-99 [facility] Comment on above: Order Comment: Nazario brooks Type: BLOOD SPECIMENOrdering Facility: [facility] Address: [address] [place] [address] Result Comment: The [place] [employer] (ADA) provides guidance for cutoff [...] Standards of Medical Care in Diabetes 2016, [place] [employer]. Diabetes Care. 2016.39(Suppl 1). Performed By: #### 2 4323-8 ####[facility]CL[facility] [id number] [place] [address] Potassium [Moles/Vol] 4.0 mmol/L Normal 3.7-5.1 [facility] Comment on above: Order Comment: Speci men Type: BLOOD SPECIMENOrdering Facility: [facility] Address: [address] [address] Performed By: #### 2 4323-8 ####[facility]CL[facility] [id number] [place] [address] Protein [Mass/Vol] 6.2 g/dL Low 6.3-8.0 [facility] Comment on above: Order Comment: Speci men Type: BLOOD SPECIMENOrdering Facility: [facility] Address: [address] [address] Performed By: #### 2 4323-8 ####[facility] [id number] [place] [address] Sodium [Moles/Vol] 143 mmol/L Normal 136-144 [facility] Comment on above: Order Comment: Speci men Type: BLOOD SPECIMENOrdering Facility: [facility] Address: [address] [address] Performed By: #### 2 4323-8 ####[facility]CL[facility] [id number] [place] [address] Urea nitrogen [Mass/Vol] 21 mg/dL Normal 9-24 [facility] Comment on above: Order Comment: Speci men Type: BLOOD SPECIMENOrdering Facility: [facility] Address: [address] [place] [address] Performed By: #### 2 4323-8 ####[facility]CL[facility] [id number] [place] [address] Albumin [Mass/Vol] 4.1 g/dL 3.9 - 4.9 g/dL [facility] ALP [Catalytic activity/Vol] 83 U/L 38 - 113 U/L [facility] ALT [Catalytic activity/Vol] 7 U/L Low 10 - 54 U/L [facility] Anion gap [Moles/Vol] 10 mmol/L 9 - 18 mmol/L [facility] AST [Catalytic activity/Vol] 15 U/L 14 - 40 U/L [facility] Bilirubin [Mass/Vol] 0.5 mg/dL 0.2 - 1 .3 mg/dL [facility] Calcium [Mass/Vol] 9.6 mg/dL 8.5 - 10. 2 mg/dL [facility] Chloride [Moles/Vol] 105 mmol/L 97 - 10 5 mmol/L [facility] CO2 [Moles/Vol] 28 mmol/L 22 - 30 mmol/L [facility] Creatinine [Mass/Vol] 1.23 mg/dL High 0.73 - 1.22 mg/dL [facility] Estimated Glomerular Filtration Rate 63 mL/min/1.73m >=60 mL/min/1.73 m [facility] Glucose [Mass/Vol] 86 mg/dL 74 - 99 mg/dL [facility] Potassium [Moles/Vol] 4.0 mmol/L 3.7 - 5.1 mmol/L [facility] Protein [Mass/Vol] 6.2 g/dL Low 6.3 - 8.0 g/dL [facility] Sodium [Moles/Vol] 143 mmol/L 136 - 144 mmol/L [facility] Urea nitrogen [Mass/Vol] 21 mg/dL 9 - 24 mg/dL [facility] HISTORY PHYSICALon HISTORY PHYSICAL HNO ID: [id number] Author: Mark Valladares MD Service: Interventional Radiology [...] DATE: December 20, 2022 TIME: 9:48 AM [facility] IR FLU GD JERMAINE CVA PLACEon [...] report: SIR_Port_v2 Th (more content not included)... Normal [facility] IR PORTOCATH PLACEMENTon IR PORTOCATH PLACEMENT * * *Final Report* * * DATE OF EXAM: Dec 20 2022 10:30AM [facility] 8966 - IR PORTOCATH PLACEMENT / PROCEDURE [...] SIR_Port_v2 The (more content not included)... Normal [facility] IR US VASCULAR ACCESS GUIDEo n 12-20-2022 IR US VASCULAR ACCESS GUIDE * * *Final Report* * * DATE OF EXAM: Dec 20 2022 10:30AM [facility] 7765 - IR VASCULAR ACCESS GUIDE / PROCEDURE REASON: Rectal [...] Standardized report: SIR_Port_v2 (more content not included)... [facility] Telephone (AVXRPR) MERVAT DAMON ([id number]) 1950 M Date Time Provider Department 12/19/22 MILTON WARD During your visit today, we recorded the following information about you: Milton Ward RN 12/19/2022 12:16 PM Signed You are scheduled for a Mediport placement, On 12/20/2022. You are to arrive at 0900 am and Report to [facility]: [facility]: Enter through [facility] entrance. Proceed [...] if they are not done at a [facility] facility. . [employer]/Transportation: How will you be arriving for your procedure? Private car. You will need a responsible adult to accompany you to and from the procedure. Your otr driver is required to stay with you until you are taken into the procedure room. Call for any questions [phone] Allergies As of Date: 12/19/2022 (No Known [...] Encounter Status:Closed by MILTON WARD on 12/19/22 [facility] PT panel Coag (PPP)on 2022 INR Coag (PPP) [Relative time] 1.0 {INR} 0.9 - 1.3 [facility] PT Coag (PPP) [Time] 10.7 s 9.7 - 1 3.0 sec [facility] CEA BLDon 12-18-2022 Carcinoembryonic Ag [Mass/Vol] 1.7 ng/mL <=2.9 ng/mL [facility] Consultation Noteon 12-18-19 Consultation Note [id number]#1.00C D:127 Normal [facility] CBC W Auto Differential pane l (Bld)on 12-17-2022 Basophils (Bld) [#/Vol] 0.04 10*3/uL <0.11 k/uL [facility] Basophils/100 WBC (Bld) 0.7 % [facility] Differential cell count method Nom (Bld) Auto [facility] Eosinophils (Bld) [#/Vol] 0.13 10*3/uL <0.46 k/uL [facility] Eosinophils/100 WBC (Bld) 2.2 % [facility] Erythrocyte distribution width (RBC) [Ratio] 18.9 % High 11.5 - 15.0 % [facility] Hematocrit (Bld) [Volume fraction] 38.5 % Low 39.0 - 51.0 % [facility] Hemoglobin (Bld) [Mass/Vol] 12.9 g/dL Low 13.0 - 17.0 g/dL [facility] Immature granulocytes (Bld) [#/Vol] 0.05 10*3/uL <0.10 k/uL [facility] Immature granulocytes/100 WBC (Bld) 0.9 % [facility] Lymphocytes (Bld) [#/Vol] 0.63 10*3/uL Low 1.00 - 4.00 k/uL [facility] Lymphocytes/100 WBC (Bld) 10.9 % [facility] MCH (RBC) [Entitic mass] 34.0 pg 26.0 - 34.0 pg [facility] MCHC (RBC) [Mass/Vol] 33.5 g/dL 30.5 - 36.0 g/dL [facility] MCV (RBC) [Entitic vol] 101.6 fL High 80.0 - 100.0 fL [facility] Monocytes (Bld) [#/Vol] 0.64 10*3/uL <0.87 k/uL [facility] Monocytes/100 WBC (Bld) 11.1 % [facility] Neutrophils (Bld) [#/Vol] 4.30 10*3/uL 1.45 - 7.50 k/uL [facility] Neutrophils/100 WBC (Bld) 74.2 % [facility] Nucleated RBC (Bld) [#/Vol] <0.01 k/uL [facility] Nucleated RBC/100 WBC (Bld) [Ratio] 0.0 /100 WBC [facility] Platelet mean volume (Bld) [Entitic vol] 10.2 fL 9.0 - 12.7 fL [facility] Platelets (Bld) [#/Vol] 200 10*3/uL 150 - 400 k/uL [facility] RBC (Bld) [#/Vol] 3.79 10*6/uL Low 4.20 - 6.0 0 m/uL [facility] WBC (Bld) [#/Vol] 5.79 10*3/uL 3.70 - 11.00 k/uL [facility] Comprehensive metabolic 2000 panelon 12-17-2022 Albumin [Mass/Vol] 4.0 g/dL 3.9 - 4.9 g/dL [facility] ALP [Catalytic activity/Vol] 79 U/L 38 - 113 U/L [facility] ALT [Catalytic activity/Vol] 8 U/L Low 10 - 54 U/L [facility] Anion gap [Moles/Vol] 5 mmol/L Low 9 - 18 mmol/L [facility] AST [Catalytic activity/Vol] 14 U/L 14 - 40 U/L [facility] Bilirubin [Mass/Vol] 0.4 mg/dL 0.2 - 1 .3 mg/dL [facility] Calcium [Mass/Vol] 9.1 mg/dL 8.5 - 10. 2 mg/dL [facility] Chloride [Moles/Vol] 107 mmol/L High 97 - 10 5 mmol/L [facility] CO2 [Moles/Vol] 28 mmol/L 22 - 30 mmol/L [facility] Creatinine [Mass/Vol] 1.22 mg/dL 0.73 - 1.22 mg/dL [facility] Estimated Glomerular Filtration Rate 64 mL/min/1.73m >=60 mL/min/1.73 m [facility] Glucose [Mass/Vol] 84 mg/dL 74 - 99 mg/dL [facility] Potassium [Moles/Vol] 4.0 mmol/L 3.7 - 5.1 mmol/L [facility] Protein [Mass/Vol] 6.2 g/dL Low 6.3 - 8.0 g/dL [facility] Sodium [Moles/Vol] 140 mmol/L 136 - 144 mmol/L [facility] Urea nitrogen [Mass/Vol] 19 mg/dL 9 - 24 mg/dL [facility] Consultation Noteon 12-14-19 Consultation Note [id number]#1.00C D:127 Normal [facility] Consultation Noteon 11-24-19 Consultation Note [id number]#1.00C D:127 Normal [facility] CBC w/Indiceson 11-16-2022 Erythrocyte distribution width (RBC) [Ratio] 18.5 % High 10.9-14.2 [facility] Comment on above: Performed By: #### 2 859446, [id number], 3804923, 70280071 ####[facility] [address] [place] [address] Hematocrit (Bld) [Volume fraction] 39.8 % Normal 37.7-49.0 [facility] Comment on above: Performed By: #### 2 649440, 04342679, 0613137, 64683187 ####[facility] [address] [place] [address] Hemoglobin (Bld) [Mass/Vol] 13.0 g/dL Low 13.5-17.5 [facility] Comment on above: Performed By: #### 2 069060, 31880620, 0525520, 38962564 ####[facility] [address] [place] [address] MCH (RBC) [Entitic mass] 32.3 pg Normal 27.0-34.0 [facility] Comment on above: Performed By: #### 2 306326, 75692858, 7156071, 85728529 ####[facility] [address] [place] [address] MCHC (RBC) [Mass/Vol] 32.6 g/dL Normal 31.4-36.0 [facility] Comment on above: Performed By: #### 2 975829, 19614165, 8654722, 44529766 ####[facility] [address] [place] [address] MCV (RBC) [Entitic vol] 99.3 fL Normal 80.0-100.0 [facility] Comment on above: Performed By: #### 2 703118, 74489718, 5542512, 16423174 ####[facility] [address] [place] [address] Platelet mean volume (Bld) [Entitic vol] 8.3 fL Normal 6.4-10.8 [facility] Comment on above: Performed By: #### 2 302156, 60193637, 3492020, 15303739 ####[facility] [address] [place] [address] Platelets (Bld) [#/Vol] 178.0 E9/L Normal 150.0-500.0 [facility] Comment on above: Performed By: #### 2 152271, 09220404, 3647632, 59906792 ####[facility] [address] [id number] RBC (Bld) [#/Vol] 4.0 E12/L Low 4.3-5.9 [facility] Comment on above: Performed By: #### 2 233490, 12115423, 3588720, 02731641 ####[facility] [address] [place] [address] WBC corrected for nucl RBC Auto (Bld) [#/Vol] 6.4 E9/L Normal 4.0-11.0 [facility] Comment on above: Performed By: #### 2 590295, 35531727, 5276914, 86979159 ####[facility] [address] [place] [address] CHEMISTRYOrdered By: SYSTEM SYSTEM on 11-16-2022 Albumin [...] rate/Area] mL/min/1.73 m2 Normal >=59mL/min/ 1.73 m2 [facility] Chem S GFR/1.73 sq M.predicted among non-blacks MDRD (S/P/Bld) [Vol rate/Area] 50 mL/min/1.73 m2 Low >=59mL/min/ 1.73 m2 [facility] Chem S Globulin (S) [Mass/Vol] 2.3 g/dL [...] ratio] 12 mg/mg Normal 10 - 20 [facility] Remisol CMPon 11-16-2022 Albumin [Mass/Vol] 3.9 g/dL Normal 3.3-5.0 [facility] Comment on above: Performed By: #### 2 001951, 66897059, 2640234, 37743219 ####[facility] [address] [place] [address] Albumin/Globulin (S) [Mass conc ratio] 1.7 Normal 1.1-2.2 [facility] Comment on above: Performed By: #### 2 545779, 16450524, 7829690, 29599214 ####[facility] [address] [place] [address] ALP [Catalytic activity/Vol] 58 Int._Unit/L Normal 21-98 [facility] Comment on above: Performed By: #### 2 658179, 24981348, 4900790, 27500234 ####[facility] [address] [place] [address] ALT No additional P-5'-P [Catalytic activity/Vol] 16 Int._Unit/L Normal 6-46 [facility] Comment on above: Performed By: #### 2 286915, 73853953, 3328071, 23815252 ####[facility] [address] [place] [address] Anion gap [Moles/Vol] 10 mmol/L Normal 6-16 [facility] Comment on above: Performed By: #### 2 091345, 02540499, 4457280, 83868584 ####[facility] [address] [place] [address] AST [Catalytic activity/Vol] 19 Int._Unit/L Normal 5-43 [facility] Comment on above: Performed By: #### 2 934613, 93260087, 7821336, 49146751 ####[facility] [address] [place] [address] Bilirubin [Mass/Vol] 1.0 mg/dL Normal 0.0-1.1 [facility] Comment on above: Performed By: #### 2 328945, 51077573, 8470433, 41599537 ####[facility] [address] [place] [address] Calcium [Mass/Vol] 9.3 mg/dL Normal 8.9-11.1 [facility] Comment on above: Performed By: #### 2 994173, 35042653, 8590299, 60288128 ####[facility] [address] [place] [address] Chloride [Moles/Vol] 105 mmol/L Normal 101-111 [facility] Comment on above: Performed By: #### 2 228820, 22822223, 2582373, 84205390 ####[facility] [address] [place] [address] CO2 [Moles/Vol] 31 mmol/L Normal 21-31 [facility] Comment on above: Performed By: #### 2 385217, 99806442, 2319179, 10883452 ####[facility] [address] [place] [address] Creatinine [Mass/Vol] 1.4 mg/dL High 0.5-1.3 [facility] Comment on above: Performed By: #### 2 106256, 01645181, 2876392, 16634882 ####[facility] [address] [place] [address] Globulin (S) [Mass/Vol] 2.3 g/dL Normal 1.4-4.0 [facility] Comment on above: Performed By: #### 2 471792, 31161515, 7171471, 99248863 ####[facility] [address] [place] [address] Glucose [Mass/Vol] 102 mg/dL Normal 55-199 [facility] Comment on above: Result Comment: If t his glucose result represents a fasting glucose, interpretation should refer to the following reference range: 55-99 mg/dL Performed By: #### 2 252392, 50813957, 4723171, 57823393 ####[facility] [address] [place] [address] Potassium [Moles/Vol] 3.7 mmol/L Normal 3.5-5.3 [facility] Comment on above: Performed By: #### 2 193137, 32858918, 3836114, 67929510 ####[facility] [address] [place] [address] Protein [Mass/Vol] 6.2 g/dL Normal 6.0-7.8 [facility] Comment on above: Performed By: #### 2 766962, 00306750, 1734566, 61043044 ####[facility] [address] [place] [address] Sodium [Moles/Vol] 142 mmol/L Normal 135-145 [facility] Comment on above: Performed By: #### 2 563729, 13286289, 2196251, 99536211 ####[facility] [address] [place] [address] Urea nitrogen [Mass/Vol] 17 mg/dL Normal 5-21 [facility] Comment on above: Performed By: #### 2 158242, 19191800, 1424746, 54268940 ####[facility] [address] [place] [address] Urea nitrogen/Creatinine [Mass ratio] 12 No Units Normal 10-20 [facility] Comment on above: Performed By: #### 2 434238, 22456424, 1335687, 50340270 ####[facility] [address] [place] [address] HEMATOLOGYOrdered By: Sonam Aponte on 11-16-2022 Erythrocyte distribution width (RBC) [Ratio] 18.5 % High 10.9 - 14.2 % [facility] HemeAutoSS Hematocrit (Bld) [Volume fraction] 39.8 % Normal 37.7 - 49.0 % [facility] HemeAutoSS Hemoglobin (Bld) [Mass/Vol] 13.0 g/dL Low 13.5 - 17.5 gm/dL [facility] HemeAutoSS MCH (RBC) [Entitic mass] 32.3 pg [...] Sed Rate Automated 8 mm/hr Normal 0-19 [facility] Comment on above: Performed By: #### 2 244922, 37993499, 6492947, 05198488 ####[facility] [address] [place] [address] eGFRon 11-16-2022 GFR/1.73 sq M.predicted among blacks MDRD (S/P/Bld) [Vol rate/Area] mL/min/{1.73_m2} Normal >=59 [facility] Comment on above: Order Comment: Order added by Discern Expert. Result Comment: eGFR is race adjusted. AA=. Performed By: #### 2 243500, 79101256, 7441021, 92570403 ####[facility] [address] [place] [address] GFR/1.73 sq M.predicted among non-blacks MDRD (S/P/Bld) [Vol rate/Area] 50 mL/min/1.73 m2 Low >=59 [facility] Comment on above: Order Comment: Order added by Discern Expert. Result Comment: Qa Automation Engineer bethany kidney disease could be indicated at eGFR's of less than 60 mL/min/1.73m2. Kidney failure is indicated at less than 15 mL/min/1.73m2. Performed By: #### 2 064573, 92408464, 1218503, 26151035 ####[facility] [address] [place] [address] CBC W Auto Differential pane l (Bld)on 11-08-2022 Basophils (Bld) [#/Vol] 0.04 10*3/uL <0.11 k/uL [facility] Basophils/100 WBC (Bld) 0.7 % [facility] Differential cell count method Nom (Bld) Auto [facility] Eosinophils (Bld) [#/Vol] 0.18 10*3/uL <0.46 k/uL [facility] Eosinophils/100 WBC (Bld) 3.1 % [facility] Erythrocyte distribution width (RBC) [Ratio] 17.3 % High 11.5 - 15.0 % [facility] Hematocrit (Bld) [Volume fraction] 36.9 % Low 39.0 - 51.0 % [facility] Hemoglobin (Bld) [Mass/Vol] 12.3 g/dL Low 13.0 - 17.0 g/dL [facility] Immature granulocytes (Bld) [#/Vol] 0.04 10*3/uL <0.10 k/uL [facility] Immature granulocytes/100 WBC (Bld) 0.7 % [facility] Lymphocytes (Bld) [#/Vol] 0.34 10*3/uL Low 1.00 - 4.00 k/uL [facility] Lymphocytes/100 WBC (Bld) 5.9 % [facility] MCH (RBC) [Entitic mass] 32.5 pg 26.0 - 34.0 pg [facility] MCHC (RBC) [Mass/Vol] 33.3 g/dL 30.5 - 36.0 g/dL [facility] MCV (RBC) [Entitic vol] 97.4 fL 80.0 - 100.0 fL [facility] Monocytes (Bld) [#/Vol] 0.55 10*3/uL <0.87 k/uL [facility] Monocytes/100 WBC (Bld) 9.5 % [facility] Neutrophils (Bld) [#/Vol] 4.62 10*3/uL 1.45 - 7.50 k/uL [facility] Neutrophils/100 WBC (Bld) 80.1 % [facility] Nucleated RBC (Bld) [#/Vol] <0.01 k/uL [facility] Nucleated RBC/100 WBC (Bld) [Ratio] 0.0 /100 WBC [facility] Platelet mean volume (Bld) [Entitic vol] 9.3 fL 9.0 - 12.7 fL [facility] Platelets (Bld) [#/Vol] 157 10*3/uL 150 - 400 k/uL [facility] RBC (Bld) [#/Vol] 3.79 10*6/uL Low 4.20 - 6.0 0 m/uL [facility] WBC (Bld) [#/Vol] 5.77 10*3/uL 3.70 - 11.00 k/uL [facility] Consultation Noteon 11-02-19 Consultation Note [id number] D:127 Normal [facility] CBC W Auto Differential pane l (Bld)on 10-11-2022 Basophils (Bld) [#/Vol] <0.11 k/uL [facility] Basophils/100 WBC (Bld) 0.1 % [facility] Differential cell count method Nom (Bld) Auto [facility] Eosinophils (Bld) [#/Vol] <0.46 k/uL [facility] Eosinophils/100 WBC (Bld) 0.0 % [facility] Erythrocyte distribution width (RBC) [Ratio] 15.5 % High 11.5 - 15.0 % [facility] Hematocrit (Bld) [Volume fraction] 42.6 % 39.0 - 51.0 % [facility] Hemoglobin (Bld) [Mass/Vol] 14.0 g/dL 13.0 - 17.0 g/dL [facility] Immature granulocytes (Bld) [#/Vol] 0.12 10*3/uL High <0.10 k/uL [facility] Immature granulocytes/100 WBC (Bld) 0.6 % [facility] Lymphocytes (Bld) [#/Vol] 0.82 10*3/uL Low 1.00 - 4.00 k/uL [facility] Lymphocytes/100 WBC (Bld) 4.0 % [facility] MCH (RBC) [Entitic mass] 31.0 pg 26.0 - 34.0 pg [facility] MCHC (RBC) [Mass/Vol] 32.9 g/dL 30.5 - 36.0 g/dL [facility] MCV (RBC) [Entitic vol] 94.5 fL 80.0 - 100.0 fL [facility] Monocytes (Bld) [#/Vol] 1.01 10*3/uL High <0.87 k/uL [facility] Monocytes/100 WBC (Bld) 4.9 % [facility] Neutrophils (Bld) [#/Vol] 18.55 10*3/uL High 1.45 - 7.50 k/uL [facility] Neutrophils/100 WBC (Bld) 90.4 % [facility] Nucleated RBC (Bld) [#/Vol] <0.01 k/uL [facility] Nucleated RBC/100 WBC (Bld) [Ratio] 0.0 /100 WBC [facility] Platelet mean volume (Bld) [Entitic vol] 10.9 fL 9.0 - 12.7 fL [facility] Platelets (Bld) [#/Vol] 207 10*3/uL 150 - 400 k/uL [facility] RBC (Bld) [#/Vol] 4.51 10*6/uL 4.20 - 6.0 0 m/uL [facility] WBC (Bld) [#/Vol] 20.52 10*3/uL High 3.70 - 11.00 k/uL [facility] Comprehensive metabolic 2000 panelon 10-11-2022 Albumin [Mass/Vol] 3.9 g/dL 3.9 - 4.9 g/dL [facility] ALP [Catalytic activity/Vol] 80 U/L 38 - 113 U/L [facility] ALT [Catalytic activity/Vol] 10 U/L 10 - 54 U/L [facility] Anion gap [Moles/Vol] 11 mmol/L 9 - 18 mmol/L [facility] AST [Catalytic activity/Vol] 11 U/L Low 14 - 40 U/L [facility] Bilirubin [Mass/Vol] 1.0 mg/dL 0.2 - 1 .3 mg/dL [facility] Calcium [Mass/Vol] 9.5 mg/dL 8.5 - 10. 2 mg/dL [facility] Chloride [Moles/Vol] 104 mmol/L 97 - 10 5 mmol/L [facility] CO2 [Moles/Vol] 26 mmol/L 22 - 30 mmol/L [facility] Creatinine [Mass/Vol] 1.50 mg/dL High 0.73 - 1.22 mg/dL [facility] Estimated Glomerular Filtration Rate 50 mL/min/1.73m Low >=60 mL/min/1.73 m [facility] Glucose [Mass/Vol] 136 mg/dL High 74 - 99 mg/dL [facility] Potassium [Moles/Vol] 4.3 mmol/L 3.7 - 5.1 mmol/L [facility] Protein [Mass/Vol] 6.1 g/dL Low 6.3 - 8.0 g/dL [facility] Sodium [Moles/Vol] 141 mmol/L 136 - 144 mmol/L [facility] Urea nitrogen [Mass/Vol] 30 mg/dL High 9 - 24 mg/dL [facility] ANES POSTPROC EVALon 022 ANES POSTPROC EVAL HNO ID: [id number] Author: Mk Salmeron DO Service: Anesthesiology Author Type: Anesthesiologist Type: Anesthesia Postprocedure Evaluation Filed: 10/10/2022 3:10 PM Note Text: POST ANESTHESIA EVALUATION NOTE : 1950 Procedure Summary Date: 10/10/22 Room / [facility] Anesthesia Start: 1313 Anesthesia Stop: 1415 [...] October 10, 2022 TIME: 3:09 PM CSN: [id number] [facility] ANES PRE-OPon 10-10-2022 ANES PRE-OP HNO ID: [id number] Author: Zeyad House MD Service: Anesthesiology Author [...] and consent discussed: yes. Patient / Responsible Republican agrees to proceed: yes Patient / Surrogate [...] October 10, 2022 TIME: 12:31 PM CSN: [id number] [facility] CYTOLOGY NON-GYNon 2 ADEQUACY INTERPRETATION Normal [facility] Comment on above: Order Comment: Speci men Type: SPECIMEN OBTAINED BY ASPIRATION Ordering Facility: [facility] Address: [address] [place] [address] Result Comment: A: # 1,2 Lymphoid sample [...] discrete evaluation episode. Intra-procedural assessment performed at [facility], [address] [place] [address] Performed By: #### C YTONON #### [facility] CLIA [id number] [address] [place] [address] CASE REPORT [facility] Comment on above: Order Comment: Speci men Type: SPECIMEN OBTAINED BY ASPIRATION Ordering Facility: [facility] Address: [address] [place] [address] Result Comment: [place] [facility] Report Case: [id number] Authorizing Provider: Hang Maier MD Collected: 10/10/2022 01:18 PM Ordering Location: [facility] Received: 10/10/2022 03:13 PM Endoscopy - ENDO Pathologist: Jose G Terry MD Specimens: A) - EBUS TRANSBRONCHIAL FINE NEEDLE ASPIRATE, LYMPH NODE, STATION 7 B) - EBUS TRANSBRONCHIAL FINE NEEDLE ASPIRATE, LYMPH NODE, 4R C) - EBUS TRANSBRONCHIAL FINE NEEDLE ASPIRATE, LYMPH NODE, 11RS Performed By: #### C YTONON #### [facility] CLIA [id number] [address] [place] [address] CLINICAL HISTORY Adenocarcinoma of th e lower rectum Normal [facility] Comment on above: Order Comment: Speci men Type: SPECIMEN OBTAINED BY ASPIRATION Ordering Facility: [facility] Address: [address] [place] [address] Performed By: #### C YTONON #### [facility] CLIA [id number] [address] [place] [address] DIAGNOSIS COMMENT C. The specimen consists of loose clusters of histiocytes, but no definitive granulomas identified. As a result, specials stains are not performed. Normal [facility] Comment on above: Order Comment: Speci men Type: SPECIMEN OBTAINED BY ASPIRATION Ordering Facility: [facility] Address: [address] [place] [address] Performed By: #### C YTONON #### [facility] CLIA [id number] [address] [place] [address] FINAL DIAGNOSIS [facility] Comment on above: Order Comment: Speci men Type: SPECIMEN OBTAINED BY ASPIRATION Ordering Facility: [facility] Address: [address] [place] [address] Result Comment: A - EBUS TRANSBRONCHIAL FINE [...] Fixed Performed By: #### C YTONON #### [facility] CLIA [id number] [address] [place] [address] FINAL PERFORMING LAB [facility] Comment on above: Order Comment: Speci men Type: SPECIMEN OBTAINED BY ASPIRATION Ordering Facility: [facility] Address: [address] [place] [address] Result Comment: Tech nical component, anatomic pathologist screening performed at [facility], [address] [place] [address] CLIA# [id number] Diagnostic interpretation performed at [facility], [address] [place] [address] CLIA# [id number] Concrete Hopper Operator: Brett Escalera M.D. Performed By: #### C YTONON #### [facility] CLIA [id number] [address] [place] [address] GROSS DESCRIPTION Normal [facility] Comment on above: Order Comment: Speci men Type: SPECIMEN OBTAINED BY ASPIRATION Ordering Facility: [facility] Address: [address] [place] [address] Result Comment: Darryl GORDON TRANSBRONCHIAL FINE NEEDLE ASPIRATE, LYMPH NODE 30 cc clear colorless CytoLyt with particles. ThinPrep and Cell Block prepared and 4 smears (2 air dried and 2 fixed). Performed By: #### C YTONON #### [facility] CLIA [id number] [address] [place] [address] ORDER COMMENT Normal [facility] Comment on above: Order Comment: Speci men Type: SPECIMEN OBTAINED BY ASPIRATION Ordering Facility: [facility] Address: [address] [place] [address] Result Comment: Pre- op diagnosis: Adenopathy [R59.9] Performed By: #### C YTONON #### [facility] CLIA [id number] [address] [place] [address] OF [facility] NURSING PROGon 10-10-2022 NURSING PROG HNO ID: [id number] Author: Oliva Alcantara RN Service: Nursing Author [...] (RECOMMENDATION): None Electronically Signed By: Oliva Alcantara [facility] Yaron 10-09-2022 [facility] Telephone (FVENDO) MERVAT DAMON ([id number]) 1950 M Date Time Provider Department 10/09/22 HANG MAIER During your visit today, we recorded the following information about you: Bandarkeiry Del Castillo 10/09/2022 11:58 AM Signed Spoke with the patient confirmed noon arrival time for 1 pm appointment at [facility] Vito Del Castillo Allergies As of [...] Status:Closed by VITO DEL CASTILLO on 10/09/22 [facility] HISTORY PHYSICALon HISTORY PHYSICAL HNO ID: [id number] Author: Hang Maier MD Service: ? Author Type: Physician Type: HANDP Filed: 10/08/2022 3:58 PM Note Text: VIRTUAL VISIT PROGRESS NOTE This is a virtual visit using Sold video visit. It required patient-provider interaction for [...] to acq (more content not included)... Normal [facility] MR abdomen wo/w conon 2021 MR abdomen wo/w con [facility] [place] [address] [place] [address] MRI Report Signed Patient: Mervat Damon MR#: [id number] : 1950 Acct:[id number] Age/Sex: 71 / M ADM Date: 10/01/22 Loc: Room: Type: [facility] Attending Dr: Minerva Anderson MD Copies [...] CHOLELITHIASIS. Impression dictated by: Hang Houser Jr., DShirleyOShirley10/02/2022 10:33 AM Dictation Location: [place] [address] Transcribed By: [facility] 10/02/22 1033 Dictated By: Hang Houser Jr, DO 10/02/22 0923 Signed By: 10/02/22 1033 [facility] Creatinine (Bld) [Mass/Vol]O rdered By: Minerva Anderson on 10-01-2022 Creatinine [Mass/Vol] 1.2 mg/dL 0.6-1.3 [facility] Comment on above: ER/ESD physician is notified/shown all ISTAT results.Critical values may be confirmed by laboratory testing ifdeemed necessary by ER attending doctor. ISTAT XRay CREon 10-01-2022 Creatinine [Mass/Vol] 1.2 mg/dL Normal 0.6-1.3 [facility] Comment on above: Result Comment: ER/E SD physician is notified/shown all ISTAT results. Critical values may be confirmed by laboratory testing if deemed necessary by ER attending doctor. Performed By: #### I SCRE #### [facility] [address] [place] [address] Point of Care testing , ISTAT GFR ( > 60 [facility] Comment on above: Result Comment: GFR estimated reference range: According to KDOQI guidelines, <60 ml/min/1.73m2 is sufficient to diagnose a patient with chronic kidney disease. PERFORMED BY: [place] [address] PATHOLOGIST CRUSHER ASSEMBLER YONG HANKINS M.D. Performed By: #### I SCRE #### [facility] [address] [place] [address] Point of Care testing , ISTAT GFR (Non- Am 60 [facility] Comment on above: Performed By: #### I SCRE #### [facility] [address] Point of Care testing , No Panel InformationOrdered By: Minerva Anderson on 10-01-2022 POC Estimated GFR > 60 [facility] Comment on above: GFR estimated refere nce range: According to KDOQI guidelines, <60 ml/min/1.73m2 is sufficient to diagnose a patient with chronic kidney disease. POC Estimated GFR Non- Amer 60 [facility] PATH CONSULTon 09-20-2022 LAB AP CASE REPORT [facility] Comment on above: Result Comment: PATH OLOGY CONSULT Case: [id number] Authorizing Provider: Thalia Troy MD Collected: 09/20/2022 1150 Ordering Location: [facility] Lab Received: 09/20/2022 1153 Pathologist: Vanessa Maldonado MD Specimen: Anus, Biopsy Performed By: #### P ATH CONSULT ####[facility] ([facility])[address] [place] [address] LAB AP CLINICAL INFORMATION Anal mass Normal [facility] Comment on above: Performed By: #### P ATH CONSULT ####[facility] ([facility])[address] [place] [address] LAB AP DIAGNOSIS COMMENT Normal [facility] Comment on above: Result Comment: Prov ided [...] needed. Performed By: #### P ATH CONSULT ####[facility] ([facility])[address] [place] [address] LAB AP GROSS DESCRIPTION A. Anus. [facility] Comment on above: Result Comment: Rece ived from [place] [address], [place] [address] are eight (8) previously stained glass slides accessioned [id number]. The slides are accompanied by a copy of the contributing pathologists??? report. Performed By: #### P ATH CONSULT ####[facility] ([facility])[address] [place] [address] LAB AP REPORT FINAL DIAGNOSIS NARRATIVE [facility] Comment on above: Result Comment: Mass at anal verge, biopsy ([id number], are 8 slides received from [facility]): Adenocarcinoma of colonic origin. Performed By: #### P ATH CONSULT ####[facility] ([facility])[address] [place] [address] CBC W Auto Differential pane l (Bld)on 09-17-2022 Basophils (Bld) [#/Vol] 0.06 10*3/uL <0.11 k/uL [facility] Basophils/100 WBC (Bld) 0.6 % [facility] Differential cell count method Nom (Bld) Auto [facility] Eosinophils (Bld) [#/Vol] 0.26 10*3/uL <0.46 k/uL [facility] Eosinophils/100 WBC (Bld) 2.7 % [facility] Erythrocyte distribution width (RBC) [Ratio] 15.2 % High 11.5 - 15.0 % [facility] Hematocrit (Bld) [Volume fraction] 43.9 % 39.0 - 51.0 % [facility] Hemoglobin (Bld) [Mass/Vol] 14.4 g/dL 13.0 - 17.0 g/dL [facility] Immature granulocytes (Bld) [#/Vol] 0.03 10*3/uL <0.10 k/uL [facility] Immature granulocytes/100 WBC (Bld) 0.3 % [facility] Lymphocytes (Bld) [#/Vol] 2.17 10*3/uL 1.00 - 4.00 k/uL [facility] Lymphocytes/100 WBC (Bld) 22.8 % [facility] MCH (RBC) [Entitic mass] 31.0 pg 26.0 - 34.0 pg [facility] MCHC (RBC) [Mass/Vol] 32.8 g/dL 30.5 - 36.0 g/dL [facility] MCV (RBC) [Entitic vol] 94.4 fL 80.0 - 100.0 fL [facility] Monocytes (Bld) [#/Vol] 0.67 10*3/uL <0.87 k/uL [facility] Monocytes/100 WBC (Bld) 7.0 % [facility] Neutrophils (Bld) [#/Vol] 6.33 10*3/uL 1.45 - 7.50 k/uL [facility] Neutrophils/100 WBC (Bld) 66.6 % [facility] Nucleated RBC (Bld) [#/Vol] <0.01 k/uL [facility] Nucleated RBC/100 WBC (Bld) [Ratio] 0.0 /100 WBC [facility] Platelet mean volume (Bld) [Entitic vol] 10.4 fL 9.0 - 12.7 fL [facility] Platelets (Bld) [#/Vol] 232 10*3/uL 150 - 400 k/uL [facility] RBC (Bld) [#/Vol] 4.65 10*6/uL 4.20 - 6.0 0 m/uL [facility] WBC (Bld) [#/Vol] 9.52 10*3/uL 3.70 - 11.00 k/uL [facility] Comprehensive metabolic 2000 panelon 09-17-2022 Albumin [Mass/Vol] 4.2 g/dL 3.9 - 4.9 g/dL [facility] ALP [Catalytic activity/Vol] 89 U/L 38 - 113 U/L [facility] ALT [Catalytic activity/Vol] 11 U/L 10 - 54 U/L [facility] Anion gap [Moles/Vol] 8 mmol/L Low 9 - 18 mmol/L [facility] AST [Catalytic activity/Vol] 16 U/L 14 - 40 U/L [facility] Bilirubin [Mass/Vol] 0.5 mg/dL 0.2 - 1 .3 mg/dL [facility] Calcium [Mass/Vol] 9.3 mg/dL 8.5 - 10. 2 mg/dL [facility] Chloride [Moles/Vol] 103 mmol/L 97 - 10 5 mmol/L [facility] CO2 [Moles/Vol] 29 mmol/L 22 - 30 mmol/L [facility] Creatinine [Mass/Vol] 1.22 mg/dL 0.73 - 1.22 mg/dL [facility] Estimated Glomerular Filtration Rate 64 mL/min/1.73m >=60 mL/min/1.73 m [facility] Glucose [Mass/Vol] 84 mg/dL 74 - 99 mg/dL [facility] Potassium [Moles/Vol] 4.1 mmol/L 3.7 - 5.1 mmol/L [facility] Protein [Mass/Vol] 6.5 g/dL 6.3 - 8.0 g/dL [facility] Sodium [Moles/Vol] 140 mmol/L 136 - 144 mmol/L [facility] Urea nitrogen [Mass/Vol] 23 mg/dL 9 - 24 mg/dL [facility] CT ABDOMEN PELVIS W IV CONTR Harish [...] gallbladder dilatation. Electronically signed: Jerrica Barragan. Normal [facility] CT CHEST W IV CONTRASTon CT CHEST [...] granulomatous disease. Electronically signed: Jerrica Barragan. Normal [facility] MR PELVIS WO CONTRASTon 08-22 MR PELVIS [...] findings section. Electronically signed: MERVAT JACINTO. Normal [facility] Comment on above: Order Comment: RECTA L MRI NEEDED CEAon 09-05-2022 CARCINOEMBRYONIC AG (NG/ML) IN SER/PLAS 14.4 ng/mL High 0-3 [facility] Comment on above: Performed By: #### L AB57 ####[facility] ([facility])[address] [place] [address] CREATININE, SERUMon 09-05-20 Creatinine [Mass/Vol] 1.15 mg/dL Normal 0.70-1.30 [facility] Comment on above: Performed By: #### L AB383 #### [facility] ([facility]) [address] [place] [address] GLOMERULAR FILTRATION RATE ML/MIN/1.73 SQ M.PREDICTED 64.6 mL/min/1.73m*2 Normal >60.0 [facility] Comment on above: Result Comment: [facility]???s estimated glomerular filtration rate (eGFR) will no [...] individuals. Performed By: #### L [id number] #### [facility] ([facility] [address] [place] [address] Office Visiton 09-05-2022 Follow-up visit [id number] Mervat Damon 1950 M Date Provider Department Center 09/05/2022 THALIA WONG [facility] [place] Family History Problem Relation Age of Onset Pancreatic cancer Mother Breast cancer Mother Other Father Liver cancer Sister Thyroid cancer Brother Family Status - Relation Status Age at Mother Father Sister Brother Alive Level of Service:85251 OR OFFICE/OUTPATIENT ESTABLISHED MOD MDM 30-39 MIN Reason for Visit and Comments: Follow-up [020139] - Adenocarcinoma of colon (Reveiw biopsy results) [facility] 36on 08-29-[address] TROY SCHEDULE IN OFFICE ON 09/05/22. CALLED PT AND SCHEDULED WITH DR. TROY PER PROVIDER REQUEST. Normal [facility] 36 Pt update he states metamusil is helping with constipation and pain is still between 2-5. Pt is scheduled for next Saturday. Normal [facility] Orders Onlyon 08-29-2022 Orders Only [id number] Mervat Damon 1950 M Date Provider Department Center 08/29/2022 BERNARDO WHITING [facility] [place] No family history on file [facility] Consulton 08-22-2022 Consult [id number] Mervat Damon 1950 M Date Provider Department Center 08/22/2022 THALIA WONG [facility] Second Fl No family history on file Level of Service:35429 OR OFFICE/OUTPATIENT NEW MODERATE MDM 45-59 MINUTES Reason for Visit and Comments: Consult [484] - rectal mass Normal [facility] Laboratory - Chemistry and C hemistry - [...] 55 mL/min/1.73 m2 Low >=59mL/min/ 1.73 m2 [facility] Chem S Globulin (S) [Mass/Vol] 3.2 g/dL Normal 1.4 - 4.0 gm/dL [facility] Remisol Glucose [Mass/Vol] 72 mg/dL Normal 55 - 199 mg/dL [facility] Potassium [Moles/Vol] 4.1 mmol/L Normal 3.5 - 5.3 mmol/L [facility] Protein [Mass/Vol] 6.9 g/dL Normal 6.0 - 7.8 gm/dL [facility] Sodium [Moles/Vol] 138 mmol/L Normal 135 - 145 mmol/L [facility] Urea nitrogen [Mass/Vol] 21 mg/dL Normal 5 - 21 mg/dL [facility] Urea nitrogen/Creatinine [Mass ratio] 16 mg/mg Normal 10 - 20 [facility] Laboratory - Hematology and Cell countsOrdered [...] 9.9 fL Normal 6.4 - 10.8 fL [facility] Platelets (Bld) [#/Vol] 169.0 E9/L Normal 150.0 - 500.0 E9/L [facility] RBC (Bld) [#/Vol] 4.4 E12/L Normal 4.3 - 5.9 E12/L [facility] WBC corrected for nucl RBC Auto (Bld) [#/Vol] 8.6 E9/L Normal 4.0 - 11.0 E9/L [facility] No Panel InformationOrdered By: Bre Ventura on 08-06-2022 Sed Rate Automated 9 mm/h Normal 0 - 19 mm/hr [facility]SS CHEMISTRYOrdered By: SYSTEM SYSTEM on 05-31-2022 [...] 43 mL/min/1.73 m2 Low >=59mL/min/ 1.73 m2 [facility] Chem S Glucose [Mass/Vol] 86 mg/dL Normal [...] 50 mL/min/1.73 m2 Low >=59mL/min/ 1.73 m2 [facility] S Globulin (S) [Mass/Vol] 3.0 g/dL [...] 13.6 g/dL Normal 13.5 - 17.5 gm/dL [facility] MCH (RBC) [Entitic mass] 32.6 pg Normal 27.0 - 34.0 pg [facility] MCHC (RBC) [Mass/Vol] 34.4 g/dL Normal 31.4 - 36.0 gm/dL [facility] MCV (RBC) [Entitic vol] 94.5 fL Normal 80.0 - 100.0 fL [facility] Platelet mean volume (Bld) [Entitic vol] 9.0 fL Normal 6.4 - 10.8 fL [facility] Platelets (Bld) [#/Vol] 216.0 E9/L Normal 150.0 - 500.0 E9/L [facility] RBC (Bld) [#/Vol] 4.2 E12/L Low 4.3 - 5.9 E12/L [facility] Sed Rate Automated 11 mm/h Normal 0 - 19 mm/hr [facility] WBC corrected for nucl RBC Auto (Bld) [#/Vol] 7.8 E9/L Normal 4.0 - 11.0 E9/L [facility] Reference Laboratory Testing Ordered By: Zeny DomainUser on 11-07-2021 SARS-CoV-2 (COVID-19) RNA MIGUE+probe Ql (Resp) Not detected Invalid Interpretation Code Not Detected [facility]Outs[facility] Comment on above: Result Comment: This nucleic acid amplification test was developed and its performance characteristics determined by We. Nucleic acid amplification tests include RT-PCR and [...] detected) result in this assay. Performed at: [address] [id number] PhD Antionette Harris Covid-19 PCR (CVDTB)on SARS-CoV-2 (COVID-19) RNA MIGUE+probe Ql (Unsp spec) Not detected Normal NOT DETECTED [facility] Comment on above: Result Comment: This test is not yet approved or cleared by the [place] FDA. When there are no FDA-approved or cleared tests available, and other criteria are met, FDA can make tests available under an emergency access mechanism called an Emergency Use Authorization (EUA). The EUA for this test is supported by the [employer] of [employer] and Human Service's (HHS's) declaration [...] SARS-CoV-2. Performed By: #### C VDTB #### [facility] [address] [place], [place] [address] Shannan Viola CBC AUTO DIFFon 03-23-2021 BASO # 0.1 103/ul Normal 0.0-0.1 [facility] Comment on above: Performed By: #### C BC #### [facility] [address] [place] [address] Shannan Viola Basophils/100 WBC (Bld) 0.8 % Normal 0.2-2.0 [facility] Comment on above: Performed By: #### C BC #### [facility] [address] [place] [address] Shannan Viola EO # 0.3 103/ul Normal 0.0-0.7 [facility] Comment on above: Performed By: #### C BC #### [facility] [address] [place] [address] Shannan Viola Eosinophils/100 WBC (Bld) 4.1 % Normal 0.9-7.0 [facility] Comment on above: Performed By: #### C BC #### [facility] [address] [place] [address] Shannandomenic Rod Erythrocyte distribution width (RBC) [Ratio] 16.0 % Critically high 11.0-15.0 [facility] Comment on above: Performed By: #### C BC #### [facility] [address] [place] [address] Shannan Viola Hematocrit (Bld) [Volume fraction] 40.8 % Critically low 42.0-54.0 [facility] Comment on above: Performed By: #### C BC #### [facility] [address] [place], [place] [address] Shannan Viola Hemoglobin (Bld) [Mass/Vol] 13.4 g/dL Critically low 14.0-18.0 [facility] Comment on above: Performed By: #### C BC #### [facility] [address] [place] [address] Shannandomenic Rod IG # 0.02 10e3/ul Normal 0.00-0.03 [facility] Comment on above: Performed By: #### C BC #### [facility] [address] [place] [address] Shannandomenic Rod IG % 0.3 % Normal 0.0-0.5 [facility] Comment on above: Performed By: #### C BC #### [facility] [address] [place] [address] Shannandomenic Rod LYMPH # 2.1 103/ul Normal 1.2-3.8 [facility] Comment on above: Performed By: #### C BC #### [facility] [address] [place] [id number] Shannan Rod Lymphocytes/100 WBC (Bld) 26.3 % Normal 20.5-60.0 [facility] Comment on above: Performed By: #### C BC #### [facility] [address] [address] Shannan Rod MANUAL DIFF REQ NO Normal [facility] Comment on above: Performed By: #### C BC #### [facility] [address] [address] Shannan Rod MCH (RBC) [Entitic mass] 31.0 pg Normal 25.9-34.0 [facility] Comment on above: Performed By: #### C BC #### [facility] [address] [place] [address] Shannan Rod MCHC (RBC) [Mass/Vol] 32.8 g/dL Normal 29.9-35.2 [facility] Comment on above: Performed By: #### C BC #### [facility] [address] [address] Shannandomenic Rod MCV (RBC) [Entitic vol] 94.4 fL Critically high 80.0-94.0 [facility] Comment on above: Performed By: #### C BC #### [facility] [address] [address] Shannan Viola MONO # 0.7 103/ul Normal 0.3-0.8 [facility] Comment on above: Performed By: #### C BC #### [facility] [address] [place], [place] [address] Shannan Rod Monocytes/100 WBC (Bld) 8.8 % Normal 1.7-12.0 [facility] Comment on above: Performed By: #### C BC #### [facility] [address] [place], [place] [address] Shannan Rod NEUT # 4.7 103/ul Normal 1.4-6.5 [facility] Comment on above: Performed By: #### C BC #### [facility] [address] [place], [place] [address] Shannan Rod Neutrophils/100 WBC (Bld) 59.7 % Normal 43.0-75.0 [facility] Comment on above: Performed By: #### C BC #### [facility] [address] [place], [place] [id number] Shannan Rod Platelet mean volume (Bld) [Entitic vol] 10.0 fL Normal 9.5-13.5 [facility] Comment on above: Performed By: #### C BC #### [facility] [address] [place], [place] [id number] Shannan Rod PLT 225 103/ul Normal 150-450 [facility] Comment on above: Performed By: #### C BC #### [facility] [address] [place] [id number] Shannandomenic Mejiaen RBC 4.32 106/ul Critically low 4.70-6.10 [facility] Comment on above: Performed By: #### C BC #### [facility] [address] [place] [id number] Shannandomenic Rod WBC 7.8 103/ul Normal 4.0-11.0 [facility] Comment on above: Performed By: #### C BC #### [facility] [address] [place], [place] [id number] Shannan Mejiaen PROF CHEM 8 (BAS METB)on Anion gap [Moles/Vol] 9.5 mmol/L Normal [facility] Comment on above: Performed By: #### B MP #### [facility] [address] [address] Shannan Viola Calcium [Mass/Vol] 8.6 mg/dL Normal 8.4-10.2 [facility] Comment on above: Performed By: #### B MP #### [facility] [address] [address] Shannan Viola Chloride [Moles/Vol] 106 mmol/L Normal 98-107 [facility] Comment on above: Performed By: #### B MP #### [facility] [address] [address] Shannan Viola CO2 [Moles/Vol] 30.5 mmol/L Critically high 22.0-30.0 [facility] Comment on above: Performed By: #### B MP #### [facility] [address] [place] [address] Shannan Viola Creatinine [Mass/Vol] 1.22 mg/dL Normal 0.66-1.25 [facility] Comment on above: Performed By: #### B MP #### [facility] [address] [address] Shannan Viola EGFR-AF SIERRA LEONEAN >60 Normal >=60 [facility] Comment on above: Performed By: #### B MP #### [facility] [address] [place] [address] Shannan Viola EGFR-NON AF SIERRA LEONEAN 59 mL/min/1.73m2 Critically low >=60 [facility] Comment on above: Performed By: #### B MP #### [facility] [address] [address] Shannan Viola Glucose [Mass/Vol] 84 mg/dL Normal 74-106 [facility] Comment on above: Performed By: #### B MP #### [facility] [address] [address] Shannan Viola Potassium [Moles/Vol] 4.0 mmol/L Normal 3.4-5.0 [facility] Comment on above: Performed By: #### B MP #### [facility] [address] [address] Shannna Rod Sodium [Moles/Vol] 142 mmol/L Normal 137-145 [facility] Comment on above: Performed By: #### B MP #### [facility] [address] [place] [address] Shannan Rod Urea nitrogen [Mass/Vol] 15.0 mg/dL Normal 9.0-20.0 [facility] Comment on above: Performed By: #### B MP #### [facility] [address] [place] [address] Shannan Rod Urea nitrogen/Creatinine [Mass ratio] 12.3 mg/mg Normal [facility] Comment on above: Performed By: #### B MP #### [facility] [address] [place] [address] Shannan Rod PROTIMEon 03-23-2021 INR Coag (PPP) [Relative time] 0.99 {INR} Normal [facility] Comment on above: Performed By: #### P T, PTT #### [facility] [address] [place] [address] Shannan Rod INR GUIDELINES SEE BELOW Normal [facility] Comment on above: Result Comment: YASMANY RED INR: 2.0 - 3.0 CONDITIONS NOT LISTED BELOW 2.5 - 3.5 FOR PROSTHETIC HEART VALVE REPLACEMENT 2.5 - 3.5 RECURRENT THROMBOSIS Performed By: #### P T, PTT #### [facility] [address] [place] [address] Shannan Viola PT Coag (PPP) [Time] 10.8 s Normal 9.0-11.6 [facility] Comment on above: Performed By: #### P T, PTT #### [facility] [address] [place], [place] [id number] Shannan Viola PTTon 03-23-2021 aPTT Coag (Bld) [Time] 28.1 s Normal 22.3-36.2 [facility] Comment on above: Performed By: #### P T, PTT #### [facility] [address] [place] [address] Shannan Rod XR FOOT BLANCA MIN 3 [...] by: DEBORAH PETIT Date: 2021-02-02 11:19 Normal [facility] Vital Signs Date Time Vital Sign Value Performing Clinician Faci lity 10-09-2023 12:56-0500 Diastolic blood pressure 71 mm[Hg] Cyndee [facility] 10-09-2023 12:56-0500 Heart rate 76 /min Cyndee [facility] 10-09-2023 12:56-0500 Mean blood pressure 82 mm[Hg] Cyndee [facility] 10-09-2023 12:56-0500 Systolic blood pressure 103 mm[Hg] Cyndee [facility] 07-16-2023 08:20-0400 Body height 187.96 cm Morgan Everett Other [employer] Other 07-16-2023 08:20-0400 Body mass index (BMI) [Ratio] 30.55 kg/m2 Morgan Everett Other [employer] Other 07-16-2023 08:20-0400 Body weight 107.96 kg Morgan Everett Other [employer] Other 07-16-2023 08:20-0400 Diastolic blood pressure 90 mm[Hg] Morgan Everett Other [employer] Other 07-16-2023 08:20-0400 Systolic blood pressure 128 mm[Hg] Morgan Everett Other [employer] Other 07-09-2023 10:10-0400 Diastolic blood pressure 79 mm[Hg] Deborah Norman MD Work Phone: [facility] 07-09-2023 10:10-0400 Heart rate 57 /min Deborah Norman MD Work Phone: [facility] 07-09-2023 10:10-0400 Respiratory rate 19 /min Deborah Norman MD Work Phone: [facility] 07-09-2023 10:10-0400 SaO2% (BldA) [Mass fraction] 94 % Deborah Norman MD Work Phone: [facility] 07-09-2023 10:10-0400 Systolic blood pressure 109 mm[Hg] Deborah Norman MD Work Phone: [facility] 07-09-2023 09:46-0400 Body temperature 97.2 [degF] Deborah Norman MD Work Phone: [facility] 06-18-2023 14:00-0400 Body height 187.96 cm Morgan Everett Other [employer] Other 06-18-2023 14:00-0400 Body mass index (BMI) [Ratio] 30.68 kg/m2 Morgan Everett Other [employer] Other 06-18-2023 14:00-0400 Body weight 108.41 kg Morgan Everett Other [employer] Other 05-28-2023 10:06-0400 Body height 187.7 cm Minerva Anderson MD Work Phone: [facility] 05-28-2023 10:06-0400 Body temperature 97.59 [degF] Minerva Anderson MD Work Phone: [facility] 05-28-2023 10:06-0400 Body weight 105.96 kg Minerva Anderson MD Work Phone: [facility] 05-28-2023 10:06-0400 Diastolic blood pressure 86 mm[Hg] Minerva Anderson MD Work Phone: [facility] 05-28-2023 10:06-0400 Heart rate 64 /min Minerva Anderson MD Work Phone: [facility] 05-28-2023 10:06-0400 Respiratory rate 16 /min Minerva Anderson MD Work Phone: [facility] 05-28-2023 10:06-0400 SaO2% (BldA) [Mass fraction] 95 % Minerva Anderson MD Work Phone: [facility] 05-28-2023 10:06-0400 Systolic blood pressure 124 mm[Hg] Minerva Anderson MD Work Phone: [facility] 05-07-2023 13:15-0400 Diastolic blood pressure 68 mm[Hg] [facility] 05-07-2023 13:15-0400 Heart rate 42 /min [facility] 05-07-2023 13:15-0400 Mean blood pressure 82 mm[Hg] [facility] 05-07-2023 13:15-0400 Respiratory rate 14 /min [facility] 05-07-2023 13:15-0400 Systolic blood pressure 109 mm[Hg] [facility] 04-29-2023 08:32-0400 Blood Pressure Location Cyndee SANCHE[facility] 04-29-2023 08:32-0400 Diastolic blood pressure 73 mm[Hg] Cyndee [facility] 04-29-2023 08:32-0400 Heart rate 61 /min Cyndee [facility] 04-29-2023 08:32-0400 SaO2% (BldA) [Mass fraction] 95 % Cyndee [facility] 04-29-2023 08:32-0400 Systolic blood pressure 116 mm[Hg] Cyndee [facility] 04-11-2023 09:30-0400 Body height 187.96 cm Morgan Everett Other [employer] [facility] [employer] Other 04-11-2023 09:30-0400 Body mass index (BMI) [Ratio] 29.78 kg/m2 Morgan Everett Other [employer] Other 04-11-2023 09:30-0400 Body weight 105.24 kg Morgan Everett Other [employer] Other 04-11-2023 09:30-0400 Diastolic blood pressure 82 mm[Hg] Morgan Everett Other [employer] Other 04-11-2023 09:30-0400 Systolic blood pressure 122 mm[Hg] Morgan Everett Other [employer] Other 04-09-2023 13:30-0400 Diastolic blood pressure 95 mm[Hg] Deborah Norman MD Work Phone: [facility] 04-09-2023 13:30-0400 Heart rate 78 /min Deborah Norman MD Work Phone: [facility] 04-09-2023 13:30-0400 Respiratory rate 15 /min Deborah Norman MD Work Phone: [facility] 04-09-2023 13:30-0400 SaO2% (BldA) [Mass fraction] 95 % Deborah Norman MD Work Phone: [facility] 04-09-2023 13:30-0400 Systolic blood pressure 138 mm[Hg] Deborah Norman MD Work Phone: [facility] 04-09-2023 13:05-0400 Body temperature 97.3 [degF] Deborah Norman MD Work Phone: [facility] 03-21-2023 10:54-0400 Body temperature 97.81 [degF] Chair Arya Work Phone: [facility] 03-21-2023 10:54-0400 Diastolic blood pressure 74 mm[Hg] Chair Dillon Beach Work Phone: [facility] 03-21-2023 10:54-0400 Heart rate 63 /min Chair Arya Work Phone: [facility] 03-21-2023 10:54-0400 Respiratory rate 18 /min Chair Arya Work Phone: [facility] 03-21-2023 10:54-0400 SaO2% (BldA) [Mass fraction] 95 % Chair Dillon Beach Work Phone: [facility] 03-21-2023 10:54-0400 Systolic blood pressure 108 mm[Hg] Chair Arya Work Phone: [facility] 03-19-2023 08:39-0400 Body height 187.7 cm Minerva Anderson MD Work Phone: [facility] 03-19-2023 08:39-0400 Body temperature 97.2 [degF] Minerva Anderson MD Work Phone: [facility] 03-19-2023 08:39-0400 Body weight 110.04 kg Minerva Anderson MD Work Phone: [facility] 03-19-2023 08:39-0400 Diastolic blood pressure 70 mm[Hg] Minerva Anderson MD Work Phone: [facility] 03-19-2023 08:39-0400 Heart rate 69 /min Minerva Anderson MD Work Phone: [facility] 03-19-2023 08:39-0400 Respiratory rate 16 /min Minerva Anderson MD Work Phone: [facility] 03-19-2023 08:39-0400 SaO2% (BldA) [Mass fraction] 96 % Minerva Anderson MD Work Phone: [facility] 03-19-2023 08:39-0400 Systolic blood pressure 105 mm[Hg] Minerva Anderson MD Work Phone: [facility] 03-18-2023 10:40-0400 Body temperature 97.88 [degF] [facility] 03-18-2023 10:40-0400 Diastolic blood pressure 91 mm[Hg] [facility] 03-18-2023 10:40-0400 Heart rate 69 /min [facility] 03-18-2023 10:40-0400 Respiratory rate 18 /min [facility] 03-18-2023 10:40-0400 SaO2% (BldA) [Mass fraction] 96 % [facility] 03-18-2023 10:40-0400 Systolic blood pressure 142 mm[Hg] [facility] 03-13-2023 10:24-0400 Body temperature 96.69 [degF] JOSE Vásquez MD Work Phone: [facility] 03-13-2023 10:24-0400 Body weight 108.41 kg JOSE Vásquez MD Work Phone: [facility] 03-13-2023 10:24-0400 Diastolic blood pressure 70 mm[Hg] JOSE Vásquez MD Work Phone: [facility] 03-13-2023 10:24-0400 Heart rate 60 /min JOSE Vásquez MD Work Phone: [facility] 03-13-2023 10:24-0400 Respiratory rate 18 /min JOSE Vásquez MD Work Phone: [facility] 03-13-2023 10:24-0400 SaO2% (BldA) [Mass fraction] 98 % JOSE Vásquez MD Work Phone: [facility] 03-13-2023 10:24-0400 Systolic blood pressure 106 mm[Hg] JOSE Vásquez MD Work Phone: [facility] 02-21-2023 11:33-0400 Body temperature 97.5 [degF] Chair Dillon Beach Work Phone: [facility] 02-21-2023 11:33-0400 Diastolic blood pressure 75 mm[Hg] Chair Dillon Beach Work Phone: [facility] 02-21-2023 11:33-0400 Heart rate 57 /min Chair Dillon Beach Work Phone: [facility] 02-21-2023 11:33-0400 Respiratory rate 18 /min Chair Arya Work Phone: [facility] 02-21-2023 11:33-0400 SaO2% (BldA) [Mass fraction] 97 % Chair Dillon Beach Work Phone: [facility] 02-21-2023 11:33-0400 Systolic blood pressure 112 mm[Hg] Chair Dillon Beach Work Phone: [facility] 02-19-2023 09:21-0400 Body height 187.7 cm Minerva Anderson MD Work Phone: [facility] 02-19-2023 09:21-0400 Body temperature 97.3 [degF] Minerva Anderson MD Work Phone: [facility] 02-19-2023 09:21-0400 Body weight 111.4 kg Minerva Anderson MD Work Phone: [facility] 02-19-2023 09:21-0400 Diastolic blood pressure 88 mm[Hg] Minerva Anderson MD Work Phone: [facility] 02-19-2023 09:21-0400 Heart rate 61 /min Minerva Anderson MD Work Phone: [facility] 02-19-2023 09:21-0400 Respiratory rate 18 /min Minerva Anderson MD Work Phone: [facility] 02-19-2023 09:21-0400 SaO2% (BldA) [Mass fraction] 96 % Minerva Anderson MD Work Phone: [facility] 02-19-2023 09:21-0400 Systolic blood pressure 107 mm[Hg] Minerva Anderson MD Work Phone: [facility] 02-07-2023 14:38-0400 Body weight 110.59 kg Deborah Norman MD Work Phone: [facility] 02-07-2023 14:38-0400 Diastolic blood pressure 69 mm[Hg] Deborah Norman MD Work Phone: [facility] 02-07-2023 14:38-0400 Heart rate 77 /min Deborah Norman MD Work Phone: [facility] 02-07-2023 14:38-0400 SaO2% (BldA) [Mass fraction] 98 % Deborah Norman MD Work Phone: [facility] 02-07-2023 14:38-0400 Systolic blood pressure 110 mm[Hg] Deborah Norman MD Work Phone: [facility] 02-07-2023 10:08-0400 Body temperature 98.6 [degF] Chair Dillon Beach Work Phone: [facility] 02-07-2023 10:08-0400 Diastolic blood pressure 69 mm[Hg] Chair Arya Work Phone: [facility] 02-07-2023 10:08-0400 Heart rate 62 /min Chair Dillon Beach Work Phone: [facility] 02-07-2023 10:08-0400 Respiratory rate 18 /min Chair Arya Work Phone: [facility] 02-07-2023 10:08-0400 SaO2% (BldA) [Mass fraction] 96 % Chair Dillon Beach Work Phone: [facility] 02-07-2023 10:08-0400 Systolic blood pressure 99 mm[Hg] Chair Dillon Beach Work Phone: [facility] 02-04-2023 13:40-0400 Body weight 108.86 kg Mert Krueger MD Work Phone: [facility] 02-04-2023 13:40-0400 Diastolic blood pressure 69 mm[Hg] Mert Krueger MD Work Phone: [facility] 02-04-2023 13:40-0400 Heart rate 76 /min Mert Krueger MD Work Phone: [facility] 02-04-2023 13:40-0400 Systolic blood pressure 105 mm[Hg] Mert Krueger MD Work Phone: [facility] 01-24-2023 10:49-0400 Body temperature 97.5 [degF] Chair Dillon Beach Work Phone: [facility] 01-24-2023 10:49-0400 Diastolic blood pressure 68 mm[Hg] Chair Arya Work Phone: [facility] 01-24-2023 10:49-0400 Heart rate 59 /min Chair Dillon Beach Work Phone: [facility] 01-24-2023 10:49-0400 Respiratory rate 18 /min Chair Arya Work Phone: [facility] 01-24-2023 10:49-0400 SaO2% (BldA) [Mass fraction] 97 % Chair Dillon Beach Work Phone: [facility] 01-24-2023 10:49-0400 Systolic blood pressure 96 mm[Hg] Chair Dillon Beach Work Phone: [facility] 01-22-2023 15:50-0400 Blood Pressure Location [facility] 01-22-2023 15:50-0400 Diastolic blood pressure 76 mm[Hg] [facility] 01-22-2023 15:50-0400 Heart rate 103 /min [facility] 01-22-2023 15:50-0400 SaO2% (BldA) [Mass fraction] 96 % [facility] 01-22-2023 15:50-0400 Systolic blood pressure 126 mm[Hg] [facility] 01-22-2023 09:15-0400 Body temperature 97.7 [degF] Chair Arya Work Phone: [facility] 01-22-2023 09:15-0400 Diastolic blood pressure 75 mm[Hg] Chair Dillon Beach Work Phone: [facility] 01-22-2023 09:15-0400 Heart rate 59 /min Chair Arya Work Phone: [facility] 01-22-2023 09:15-0400 Respiratory rate 18 /min Chair Arya Work Phone: [facility] 01-22-2023 09:15-0400 SaO2% (BldA) [Mass fraction] 97 % Chair Dillon Beach Work Phone: [facility] 01-22-2023 09:15-0400 Systolic blood pressure 111 mm[Hg] Chair Dillon Beach Work Phone: [facility] 01-10-2023 09:59-0400 Body temperature 98.01 [degF] Chair Arya Work Phone: [facility] 01-10-2023 09:59-0400 Diastolic blood pressure 84 mm[Hg] Chair Dillon Beach Work Phone: [facility] 01-10-2023 09:59-0400 Heart rate 61 /min Chair Dillon Beach Work Phone: [facility] 01-10-2023 09:59-0400 Respiratory rate 18 /min Chair Dillon Beach Work Phone: [facility] 01-10-2023 09:59-0400 SaO2% (BldA) [Mass fraction] 98 % Chair Dillon Beach Work Phone: [facility] 01-10-2023 09:59-0400 Systolic blood pressure 129 mm[Hg] Chair Dillon Beach Work Phone: [facility] 01-08-2023 08:19-0400 Body height 187.7 cm Minerva Anderson MD Work Phone: [facility] 01-08-2023 08:19-0400 Body temperature 97.2 [degF] Minerva Anderson MD Work Phone: [facility] 01-08-2023 08:19-0400 Body weight 113.31 kg Minerva Anderson MD Work Phone: [facility] 01-08-2023 08:19-0400 Diastolic blood pressure 73 mm[Hg] Minerva Anderson MD Work Phone: [facility] 01-08-2023 08:19-0400 Heart rate 68 /min Minerva Anderson MD Work Phone: [facility] 01-08-2023 08:19-0400 Respiratory rate 16 /min Minerva Anderson MD Work Phone: [facility] 01-08-2023 08:19-0400 SaO2% (BldA) [Mass fraction] 98 % Minerva Anderson MD Work Phone: [facility] 01-08-2023 08:19-0400 Systolic blood pressure 107 mm[Hg] Minerva Anderson MD Work Phone: [facility] 12-27-2022 10:25-0500 Body temperature 97.59 [degF] Chair Dillon Beach Work Phone: [facility] 12-27-2022 10:25-0500 Diastolic blood pressure 59 mm[Hg] Chair Dillon Beach Work Phone: [facility] 12-27-2022 10:25-0500 Heart rate 65 /min Chair Dillon Beach Work Phone: [facility] 12-27-2022 10:25-0500 Respiratory rate 16 /min Chair Dillon Beach Work Phone: [facility] 12-27-2022 10:25-0500 SaO2% (BldA) [Mass fraction] 97 % Chair Arya Work Phone: [facility] 12-27-2022 10:25-0500 Systolic blood pressure 92 mm[Hg] Chair Dillon Beach Work Phone: [facility] 12-17-2022 15:11-0500 Body height 186.2 cm Minerva Anderson MD Work Phone: [facility] 12-17-2022 15:11-0500 Body temperature 97.3 [degF] Minerva Anderson MD Work Phone: [facility] 12-17-2022 15:11-0500 Body weight 111.22 kg Minerva Anderson MD Work Phone: [facility] 12-17-2022 15:11-0500 Diastolic blood pressure 63 mm[Hg] Minerva Anderson MD Work Phone: [facility] 12-17-2022 15:11-0500 Heart rate 71 /min Minerva Anderson MD Work Phone: [facility] 12-17-2022 15:11-0500 Respiratory rate 16 /min Minerva Anderson MD Work Phone: [facility] 12-17-2022 15:11-0500 SaO2% (BldA) [Mass fraction] 100 % Minerva Anderson MD Work Phone: [facility] 12-17-2022 15:11-0500 Systolic blood pressure 111 mm[Hg] Minerva Anderson MD Work Phone: [facility] 11-19-2022 14:32-0500 Body height 186.2 cm Minerva Anderson MD Work Phone: [facility] 11-19-2022 14:32-0500 Body temperature 97.59 [degF] Minerva Anderson MD Work Phone: [facility] 11-19-2022 14:32-0500 Body weight 110.5 kg Minerva Anderson MD Work Phone: [facility] 11-19-2022 14:32-0500 Diastolic blood pressure 87 mm[Hg] Minerva Anderson MD Work Phone: [facility] 11-19-2022 14:32-0500 Heart rate 77 /min Minerva Anderson MD Work Phone: [facility] 11-19-2022 14:32-0500 Respiratory rate 16 /min Minerva Anderson MD Work Phone: [facility] 11-19-2022 14:32-0500 SaO2% (BldA) [Mass fraction] 98 % Minerva Anderson MD Work Phone: [facility] 11-19-2022 14:32-0500 Systolic blood pressure 126 mm[Hg] Minerva Anderson MD Work Phone: [facility] 11-19-2022 14:12-0500 Body temperature 97.39 [degF] JOSE Vásquez MD Work Phone: [facility] 11-19-2022 14:12-0500 Body weight 110.5 kg JOSE Vásquez MD Work Phone: [facility] 11-19-2022 14:12-0500 Diastolic blood pressure 61 mm[Hg] JOSE Vásquez MD Work Phone: [facility] 11-19-2022 14:12-0500 Heart rate 76 /min JOSE Vásquez MD Work Phone: [facility] 11-19-2022 14:12-0500 Respiratory rate 16 /min JOSE Vásquez MD Work Phone: [facility] 11-19-2022 14:12-0500 SaO2% (BldA) [Mass fraction] 98 % JOSE Vásquez MD Work Phone: [facility] 11-19-2022 14:12-0500 Systolic blood pressure 95 mm[Hg] JOSE Vásquez MD Work Phone: [facility] 11-12-2022 14:08-0500 Body temperature 97.5 [degF] JOSE Vásquez MD Work Phone: [facility] 11-12-2022 14:08-0500 Body weight 110.86 kg JOSE Vásquez MD Work Phone: [facility] [facility] 11-12-2022 14:08-0500 Diastolic blood pressure 65 mm[Hg] JOSE Vásquez MD Work Phone: [facility] 11-12-2022 14:08-0500 Heart rate 89 /min JOSE Vásquez MD Work Phone: [facility] 11-12-2022 14:08-0500 Respiratory rate 18 /min JOSE Vásquez MD Work Phone: [facility] 11-12-2022 14:08-0500 SaO2% (BldA) [Mass fraction] 96 % JOSE Vásquez MD Work Phone: [facility] 11-12-2022 14:08-0500 Systolic blood pressure 99 mm[Hg] JOSE Vásquez MD Work Phone: [facility] 11-05-2022 15:06-0500 Body temperature 96.3 [degF] JOSE Vásquez MD Work Phone: [facility] 11-05-2022 15:06-0500 Body weight 112.49 kg JOSE Vásquez MD Work Phone: [facility] 11-05-2022 15:06-0500 Diastolic blood pressure 80 mm[Hg] JOSE Vásquez MD Work Phone: [facility] 11-05-2022 15:06-0500 Heart rate 74 /min JOSE Vásquez MD Work Phone: [facility] 11-05-2022 15:06-0500 Respiratory rate 18 /min JOSE Vásquez MD Work Phone: [facility] 11-05-2022 15:06-0500 SaO2% (BldA) [Mass fraction] 94 % JOSE Vásquez MD Work Phone: [facility] 11-05-2022 15:06-0500 Systolic blood pressure 112 mm[Hg] JOSE Vásquez MD Work Phone: [facility] 10-29-2022 15:18-0500 Body height 186.2 cm Andree Hollis APRN.BEADING INSTALLER Work Phone: [facility] 10-29-2022 15:18-0500 Body temperature 96.69 [degF] Andree Hollis APRN.BEADING INSTALLER Work Phone: [facility] 10-29-2022 15:18-0500 Body weight 111.13 kg Andree Hollis APRN.BEADING INSTALLER Work Phone: [facility] 10-29-2022 15:18-0500 Diastolic blood pressure 73 mm[Hg] Andree Hollis APRN.BEADING INSTALLER Work Phone: [facility] 10-29-2022 15:18-0500 Heart rate 78 /min Andree Hollis APRN.BEADING INSTALLER Work Phone: [facility] 10-29-2022 15:18-0500 Respiratory rate 16 /min Andree Hollis APRN.BEADING INSTALLER Work Phone: [facility] 10-29-2022 15:18-0500 SaO2% (BldA) [Mass fraction] 100 % Andree Hollis APRN.BEADING INSTALLER Work Phone: [facility] 10-29-2022 15:18-0500 Systolic blood pressure 112 mm[Hg] Andree Hollis APRN.BEADING INSTALLER Work Phone: [facility] 10-29-2022 14:36-0500 Body temperature 96.69 [degF] Dennis Cheung MD Work Phone: [facility] 10-29-2022 14:36-0500 Body weight 111.13 kg Dennis Cheung MD Work Phone: [facility] 10-29-2022 14:36-0500 Diastolic blood pressure 73 mm[Hg] Dennis Cheung MD Work Phone: [facility] 10-29-2022 14:36-0500 Heart rate 78 /min Dennis Cheung MD Work Phone: [facility] 10-29-2022 14:36-0500 Respiratory rate 16 /min Dennis Chenug MD Work Phone: [facility] 10-29-2022 14:36-0500 SaO2% (BldA) [Mass fraction] 100 % Dennis Cheung MD Work Phone: [facility] 10-29-2022 14:36-0500 Systolic blood pressure 112 mm[Hg] Dennis Cheung MD Work Phone: [facility] 10-24-2022 10:11-0500 Blood Pressure Location ASHLEY TRINIDAD [facility] 10-24-2022 10:11-0500 Diastolic blood pressure 69 mm[Hg] ASHLEY TRINIDAD [facility] 10-24-2022 10:11-0500 Heart rate 70 /min ASHLEY VIVI [facility] 10-24-2022 10:11-0500 Respiratory rate 16 /min ASHLEY VIVI [facility] 10-24-2022 10:11-0500 Systolic blood pressure 117 mm[Hg] ASHLEY TRINIDAD [facility] 10-23-2022 08:11-0500 Body temperature 97.3 [degF] JOSE Vásquez MD Work Phone: [facility] 10-23-2022 08:11-0500 Body weight 112.04 kg JOSE Vásquez MD Work Phone: [facility] 10-23-2022 08:11-0500 Diastolic blood pressure 69 mm[Hg] JOSE Vásquez MD Work Phone: [facility] 10-23-2022 08:11-0500 Heart rate 78 /min JOSE Vásquez MD Work Phone: [facility] 10-23-2022 08:11-0500 Respiratory rate 16 /min JOSE Vásquez MD Work Phone: [facility] 10-23-2022 08:11-0500 SaO2% (BldA) [Mass fraction] 97 % JOSE Vásquez MD Work Phone: [facility] 10-23-2022 08:11-0500 Systolic blood pressure 110 mm[Hg] JOSE Vásquez MD Work Phone: [facility] 10-16-2022 13:33-0500 Body temperature 97.39 [degF] JOSE Vásquez MD Work Phone: [facility] 10-16-2022 13:33-0500 Body weight 111.4 kg JOSE Vásquez MD Work Phone: [facility] 10-16-2022 13:33-0500 Diastolic blood pressure 60 mm[Hg] JOSE Vásquez MD Work Phone: [facility] 10-16-2022 13:33-0500 Heart rate 69 /min JOSE Vásquez MD Work Phone: [facility] 10-16-2022 13:33-0500 Respiratory rate 18 /min JOSE Vásquez MD Work Phone: [facility] 10-16-2022 13:33-0500 SaO2% (BldA) [Mass fraction] 95 % NA Yesi ARRINGTON Work Phone: [facility] 10-16-2022 13:33-0500 Systolic blood pressure 97 mm[Hg] NA Yesi ARRINGTON Work Phone: [facility] 10-11-2022 14:49-0500 Body height 186.2 cm Andree Hollis PICCOLO MECHANIC.BEADING INSTALLER Work Phone: [facility] 10-11-2022 14:49-0500 Body temperature 97.59 [degF] Andree Hollis PICCOLO MECHANIC.BEADING INSTALLER Work Phone: [facility] 10-11-2022 14:49-0500 Body weight 113.22 kg Andree Hollis APRN.BEADING INSTALLER Work Phone: [facility] 10-11-2022 14:49-0500 Diastolic blood pressure 82 mm[Hg] Andree Hollis APRN.BEADING INSTALLER Work Phone: [facility] 10-11-2022 14:49-0500 Heart rate 97 /min Andree Hollis APRN.BEADING INSTALLER Work Phone: [facility] 10-11-2022 14:49-0500 Respiratory rate 16 /min Andree Hollis APRN.BEADING INSTALLER Work Phone: [facility] 10-11-2022 14:49-0500 SaO2% (BldA) [Mass fraction] 96 % Andree Hollis APRN.BEADING INSTALLER Work Phone: [facility] 10-11-2022 14:49-0500 Systolic blood pressure 147 mm[Hg] Anrdee Hollis PICCOLO MECHANIC.BEADING INSTALLER Work Phone: [facility] 10-03-2022 13:30-0500 Blood Pressure Location Cyndee SANCHEZ [facility] 10-03-2022 13:30-0500 Diastolic blood pressure 70 mm[Hg] Cyndee SANCHEZ [facility] 10-03-2022 13:30-0500 Heart rate 90 /min Cyndee SANCHEZ [facility] 10-03-2022 13:30-0500 Respiratory rate 18 /min Cyndee SANCHEZ [facility] 10-03-2022 13:30-0500 SaO2% (BldA) [Mass fraction] 96 % Cyndee SANCHEZ [facility] 10-03-2022 13:30-0500 Systolic blood pressure 110 mm[Hg] Cyndee SANCHEZ [facility] 10-02-2022 14:30-0500 Body height 186.2 cm Minerva Anderson MD Work Phone: [facility] 10-02-2022 14:30-0500 Body temperature 97.81 [degF] Minerva Anderson MD Work Phone: [facility] 10-02-2022 14:30-0500 Body weight 113.94 kg Minerva Anderson MD Work Phone: [facility] 10-02-2022 14:30-0500 Diastolic blood pressure 78 mm[Hg] Minerva Anderson MD Work Phone: [facility] 10-02-2022 14:30-0500 Heart rate 83 /min Minerva Anderson MD Work Phone: [facility] 10-02-2022 14:30-0500 Respiratory rate 18 /min Minerva Anderson MD Work Phone: [facility] 10-02-2022 14:30-0500 SaO2% (BldA) [Mass fraction] 97 % Minerva Anderson MD Work Phone: [facility] 10-02-2022 14:30-0500 Systolic blood pressure 113 mm[Hg] Minerva Anderson MD Work Phone: [facility] 09-20-2022 07:56-0500 Body temperature 96.69 [degF] JOSE Vásquez MD Work Phone: [facility] 09-20-2022 07:56-0500 Body weight 113.31 kg JOSE Vásquez MD Work Phone: [facility] 09-20-2022 07:56-0500 Diastolic blood pressure 70 mm[Hg] JOSE Vásquez MD Work Phone: [facility] 09-20-2022 07:56-0500 Heart rate 66 /min JOSE Vásquez MD Work Phone: [facility] 09-20-2022 07:56-0500 Respiratory rate 18 /min JOSE Vásquez MD Work Phone: [facility] 09-20-2022 07:56-0500 SaO2% (BldA) [Mass fraction] 97 % JOSE Vásquez MD Work Phone: [facility] 09-20-2022 07:56-0500 Systolic blood pressure 106 mm[Hg] JOSE Vásquez MD Work Phone: [facility] 09-17-2022 16:03-0500 Body height 186.2 cm Minerva Anderson MD Work Phone: [facility] 09-17-2022 16:03-0500 Body temperature 97.5 [degF] Minerva Anderson MD Work Phone: [facility] 09-17-2022 16:03-0500 Body weight 111.22 kg Minerva Anderson MD Work Phone: [facility] 09-17-2022 16:03-0500 Diastolic blood pressure 72 mm[Hg] Minerva Anderson MD Work Phone: [facility] 09-17-2022 16:03-0500 Heart rate 68 /min Minerva Anderson MD Work Phone: [facility] 09-17-2022 16:03-0500 Respiratory rate 16 /min Minerva Anderson MD Work Phone: [facility] 09-17-2022 16:03-0500 SaO2% (BldA) [Mass fraction] 97 % Minerva Anderson MD Work Phone: [facility] 09-17-2022 16:03-0500 Systolic blood pressure 135 mm[Hg] Minerva Anderson MD Work Phone: [facility] 08-20-2022 08:15-0400 Diastolic blood pressure 101 mm[Hg] Mervat NILL [facility] 08-20-2022 08:15-0400 Heart rate 68 /min Mervat NILL [facility] 08-20-2022 08:15-0400 Respiratory rate 18 /min Mervat NILL [facility] 08-20-2022 08:15-0400 SaO2% (BldA) [Mass fraction] 96 % Mervat NILL [facility] 08-20-2022 08:15-0400 Systolic blood pressure 139 mm[Hg] Mervat NILL [facility] 08-20-2022 08:12-0400 Diastolic blood pressure 97 mm[Hg] Mervat NILL [facility] 08-20-2022 08:12-0400 Heart rate 67 /min Mervat NILL [facility] 08-20-2022 08:12-0400 Respiratory rate 10 /min Mervat NILL [facility] 08-20-2022 08:12-0400 SaO2% (BldA) [Mass fraction] 96 % Mervat NILL [facility] 08-20-2022 08:12-0400 Systolic blood pressure 130 mm[Hg] Mervat NILL [facility] 08-20-2022 08:05-0400 Diastolic blood pressure 92 mm[Hg] Mervat NILL [facility] 08-20-2022 08:05-0400 Heart rate 69 /min Mervat NILL [facility] 08-20-2022 08:05-0400 Respiratory rate 14 /min Mervat NILL [facility] 08-20-2022 08:05-0400 SaO2% (BldA) [Mass fraction] 93 % Mervat NILL [facility] 08-20-2022 08:05-0400 Systolic blood pressure 127 mm[Hg] Mervat NILL [facility] 08-20-2022 07:50-0400 Body temperature 97.7 [degF] Mervat NILL [facility] 08-20-2022 07:45-0400 Respiratory rate 14 /min Mervat NILL [facility] 08-20-2022 07:40-0400 Respiratory rate 13 /min Mervat NILL [facility] 08-20-2022 07:35-0400 Respiratory rate 14 /min Mervat NILL [facility] 08-20-2022 07:10-0400 Blood Pressure Location Mervat NILL [facility] 08-20-2022 07:10-0400 Body temperature 96.98 [degF] Mervat NILL [facility] 08-14-2022 08:42-0400 Blood Pressure Location Mervat NILL [facility] [place] 08-14-2022 08:42-0400 Diastolic blood pressure 67 mm[Hg] Mevrat NILL [facility] [place] 08-14-2022 08:42-0400 Heart rate 63 /min Mervat NILL [facility] [place] 08-14-2022 08:42-0400 Respiratory rate 16 /min Mervat NILL [facility] [place] 08-14-2022 08:42-0400 Systolic blood pressure 114 mm[Hg] Mervat NILL [facility] [place] 05-31-2022 10:53-0400 Blood Pressure Location VALERIE SIDELL [facility] 05-31-2022 10:53-0400 Diastolic blood pressure 70 mm[Hg] VALERIE SIDELL [facility] 05-31-2022 10:53-0400 Heart rate 74 /min VALERIE SIDELL [facility] 05-31-2022 10:53-0400 SaO2% (BldA) [Mass fraction] 96 % VALERIE SIDELL [facility] 05-31-2022 10:53-0400 Systolic blood pressure 114 mm[Hg] VALERIE SIDELL [facility] 04-03-2022 10:55-0400 Blood Pressure Location Cyndee STANG [facility] 04-03-2022 10:55-0400 Diastolic blood pressure 62 mm[Hg] Cyndee STANG [facility] 04-03-2022 10:55-0400 Heart rate 76 /min Cyndee STANG [facility] 04-03-2022 10:55-0400 Respiratory rate 18 /min Cyndee STANG [facility] 04-03-2022 10:55-0400 SaO2% (BldA) [Mass fraction] 96 % Cyndee LAURA [facility] 04-03-2022 10:55-0400 Systolic blood pressure 98 mm[Hg] Cyndee LAURA [facility] Encounters Encounter Date Encounter Type Care Provider Facility Start: 12-23-2023 Telephone encounter Minal Cain Hematology/Oncology Comment on above: Results Start: 12-20-2023 End: 12-20-2023 ambulatory MINERVA ANDERSON Facility:[facility] Start: 12-03-2023 ambulatory LORENZO OLSON Facilit y:[facility] Start: 12-03-2023 End: 12-03-2023 Subsequent hospital visit by physician Victor Manuel [facility] (Istat/3t) Work Phone: [facility] Radiology MRI Comment on above: Malignant neoplasm o f rectum (HCC) [C20] Start: 11-21-2023 End: 11-21-2023 ambulatory MINERVA ANDERSON Facility:[facility] Start: 11-05-2023 ambulatory JACKY TAYLOR Facility:[facility] Start: 10-11-2023 End: 10-11-2023 ambulatory CHELSIE FERNANDO Not Available Start: 10-10-2023 Follow-up encounter Deborah cain MD Work Phone: Colorectal Surgery Comment on above: Encounter for follow -up surveillance of rectal cancer (Primary Dx) Start: 10-10-2023 End: 10-10-2023 ambulatory MINERVA ANDERSON Facility:[facility] Start: 10-10-2023 End: 10-10-2023 ambulatory Lab/[facility] Simon Work Phone: Hematology/Oncology Comment on above: Rectal cancer (HCC) (Primary Dx) Start: 10-09-2023 End: 10-10-2023 ambulatory Lorenzo OLSON Facility:[facility] Start: 10-09-2023 End: 10-09-2023 Pain Management Cyndee Torres [facility] Start: 09-26-2023 Refill Minerva Anderson MD Work Phone: Hematology/Oncology Comment on above: Refill Request Start: 09-05-2023 End: 09-05-2023 ambulatory DEBORAH NORMAN Facility:[facility] Start: 08-27-2023 Telephone encounter Minerva wong MD Work Phone: Cancer [facility] Comment on above: Future Appointment Start: 08-27-2023 End: 08-27-2023 ambulatory MINERVA ANDERSON Facility:[facility] Start: 08-22-2023 End: 08-23-2023 ambulatory Corey MCKEE Facility:[facility] Start: 08-22-2023 End: 08-22-2023 Patient encounter procedure Corey MCKEE [facility] Start: 08-14-2023 End: 08-14-2023 ambulatory Lorenzo Olson Facility:[facility] Start: 08-14-2023 End: 08-14-2023 ambulatory DO Lorenzo Olson Work Phone: [facility] Work Phone: Start: 08-14-2023 End: 08-14-2023 Patient encounter procedure DO Lorenzo Olson Work Phone: [facility]-MRI [address] Work Phone: Start: 07-24-2023 Follow-up encounter Deborah cain MD Work Phone: Colorectal Surgery Comment on above: Encounter for follow -up surveillance of rectal cancer (Primary Dx) Start: 07-16-2023 End: 07-16-2023 ambulatory Valencia Torres Other [facility] [employer] Other Start: 07-16-2023 Office outpatient vi sit 25 minutes Valencia Torres [facility] Neurosurgery Start: 07-09-2023 ambulatory LORENZO OLSON Facilit y:[facility] Start: 07-09-2023 End: 07-09-2023 Subsequent hospital [...] RN Work Phone: Hematology/Oncology Comment on above: 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 Start: 06-20-2023 End: 06-20-2023 ambulatory Lab/[facility] Arya Work Phone: Hematology/Oncology Comment on above: Rectal cancer (HCC) Start: 06-19-2023 Telephone encounter Denisha mello RN Work Phone: Hematology/Oncology Comment on above: Care Coordination (L ab Request) Start: 06-18-2023 End: 06-18-2023 ambulatory Valencia Torres Other [facility] [place] Other Start: 06-18-2023 Office outpatient vi sit 15 minutes Valencia Torres [facility] Neurosurgery Start: 06-17-2023 End: 06-27-2023 Pre-admission assessment Corey MCKEE [facility] Start: 06-04-2023 End: 06-05-2023 ambulatory Corey MCKEE Facility:[id number] Start: 05-28-2023 End: 05-28-2023 ambulatory MINERVA ANDERSON Facility:[facility] Start: 05-28-2023 End: 05-28-2023 Patient encounter procedure Minerva Anderson MD Work Phone: [facility] Start: 05-28-2023 End: 05-28-2023 ambulatory Lab/[facility] [place] Work Phone: Hematology/Oncology Comment on above: Rectal cancer (HCC) Rectal cancer (HCC) (Primary Dx); Neoplasm related pain (acute) (chronic); Rheumatoid arthritis involving multiple sites, unspecified whether rheumatoid factor present (HCC); Acute deep vein thrombosis (DVT) of distal vein of left lower extremity (HCC) Start: 05-23-2023 End: 07-21-2023 ambulatory Bryon Cruz Facility:[facility] Start: 05-22-2023 End: 05-22-2023 ambulatory Valencia Torres Facility:[facility] Start: 05-22-2023 End: 05-22-2023 ambulatory DO Lorenzo Olson Work Phone: [facility] Work Phone: Start: 05-22-2023 End: 05-22-2023 Patient encounter procedure DO Lorenzo Olson Work Phone: [facility]-MRI [address] [place] Work Phone: Start: 05-17-2023 End: 05-18-2023 ambulatory Bryon Cruz Facility:[facility] Start: 05-14-2023 Telephone encounter Denisha mello RN Work Phone: Hematology/Oncology Comment on above: Care Coordination (O rders ) Start: 05-14-2023 End: 05-14-2023 ambulatory MINERVA ANDERSON Facility: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 ) Start: 04-29-2023 End: 04-30-2023 ambulatory XXXX NONE Facility:[facility] Start: 04-29-2023 End: 04-29-2023 Patient encounter procedure Cyndee Dumont JOSEDania [facility] Start: 04-18-2023 ambulatory DEBORAH NORMAN Facility:[facility] Start: 04-17-2023 Telephone encounter Denisha mello RN Work Phone: Hematology/Oncology Comment on above: Care Coordination (P otassium Results) Start: 04-16-2023 End: 04-16-2023 ambulatory MINERVA ANDERSON Facility:[facility] Start: 04-16-2023 End: 04-16-2023 ambulatory Lab/Port [facility] Simon Work Phone: Hematology/Oncology Comment on above: Rectal cancer (HCC) Start: 04-11-2023 Encounter for other specified special examinations Valencia Torres [facility] Neurosurgery Start: 04-11-2023 Office outpatient ne w 45 minutes Valencia Torres [facility] Neurosurgery Start: 04-11-2023 End: 04-11-2023 ambulatory DO Lorenzo Olson Work Phone: [facility] Work Phone: Start: 04-11-2023 End: 04-11-2023 Patient encounter procedure DO Lorenzo Olson Work Phone: [facility]-XRay [address] [place] Work Phone: Start: 04-09-2023 ambulatory LORENZO OLSON Facilit y:[facility] Start: 04-09-2023 End: 04-09-2023 Subsequent hospital visit by physician Deborah Norman MD Work Phone: Procedures Comment on above: Rectal cancer (HCC) [C20] Start: 04-02-2023 End: 04-03-2023 ambulatory Lorenzo OLSON Facility:[facility] Start: 03-26-2023 ambulatory [facility] Provider Paulino pappas Comment on above: Colonoscopy prep ins tructions Start: 03-26-2023 E-mail encounter fro m caregiver [facility] Provider [facility] G[facility]ES [facility] Start: 03-26-2023 Telephone encounter Deborah cain MD Work Phone: Colorectal Surgery Comment on above: Patient Question Care Coordination (M RI Question) Start: 03-21-2023 End: 03-21-2023 ambulatory MINERVA ANDERSON Facility:[facility] Start: 03-21-2023 End: 03-21-2023 ambulatory Chair 20 Arya Work Phone: Hematology/Oncology Comment on above: Rectal cancer (HCC) (Primary Dx) Start: 03-20-2023 Telephone encounter Santiago Lema ROYCE Work Phone: [facility] Comment on above: Results Start: 03-19-2023 End: 03-19-2023 ambulatory MINERVA ANDERSON Facility:[facility] Start: 03-19-2023 End: 03-19-2023 Patient encounter [...] 03-18-2023 Emergency department patient visit Yuridia Houser Facility:[facility] Start: 03-18-2023 End: 03-18-2023 Emergency department patient visit [facility] Jose Angel Houser [facility] Start: 03-13-2023 End: 03-13-2023 ambulatory Dania VÁSQUEZ Facility:[facility] Start: 03-13-2023 End: 03-14-2023 ambulatory MINERVA ANDERSON Facility:[facility] Start: 03-13-2023 End: 03-13-2023 Patient encounter procedure Dania Vásquez MD Work Phone: Radiation Oncology Comment on above: Rectal cancer (HCC) (Primary Dx); Malignant neoplasm of prostate (HCC) Start: 03-07-2023 End: 03-07-2023 ambulatory MINERVA ANDERSON Facility:[facility] Start: 03-05-2023 End: 03-05-2023 ambulatory Chair 5 Arya Work Phone: Hematology/Oncology Comment on above: Rectal cancer (HCC) (Primary Dx) Start: 03-01-2023 Telephone encounter Minerva wong MD Work Phone: Hematology/Oncology Comment on above: Lab Orders Start: 02-26-2023 Telephone encounter Samantha Hewitt [facility] Work Phone: [facility] HB[facility] Comment on above: Medication Assistanc e (Approved for Free Xarelto) Start: 02-21-2023 End: 02-21-2023 ambulatory LORENZO OLSON Facility:[facility] Start: 02-21-2023 End: 02-21-2023 ambulatory Chair 20 Arya Work Phone: Hematology/Oncology Comment on above: Rectal cancer (HCC) (Primary Dx) Start: 02-19-2023 End: 02-19-2023 ambulatory MINERVA ANDERSON Facility:[facility] Start: 02-19-2023 End: 02-19-2023 Patient encounter procedure Minerva Anderson MD Work Phone: [facility] Start: 02-19-2023 End: 02-19-2023 ambulatory Minerva Anderson MD Work Phone: Hematology/Oncology Comment on above: Rectal cancer (HCC) (Primary Dx); Acute deep vein thrombosis (DVT) of distal vein of left lower extremity (HCC) Rectal cancer (HCC) (Primary Dx) Rectal cancer (HCC) Start: 02-07-2023 End: 02-07-2023 ambulatory MINERVA ANDERSON Facility:[facility] Start: 02-07-2023 End: 02-07-2023 Patient encounter procedure Deborah Norman MD Work Phone: Colorectal Surgery Comment on above: Rectal cancer (HCC) (Primary Dx); Malignant neoplasm of rectum (HCC) Start: 02-07-2023 End: 02-07-2023 ambulatory MINERVA ANDERSON Facility:[facility] Start: 02-07-2023 End: 02-07-2023 ambulatory Chair 20 Arya Work Phone: Hematology/Oncology Comment on above: Rectal cancer (HCC) (Primary Dx) Start: 02-05-2023 End: 02-06-2023 ambulatory MINERVA ANDERSON Facility:[facility] Start: 02-04-2023 End: 02-04-2023 ambulatory MERT KRUEGER Facility:[facility] Start: 02-04-2023 End: 02-04-2023 Patient encounter procedure Mert Krueger MD Work Phone: Gastroenterology Comment on above: Rectal cancer (HCC) (Primary Dx); Rectal bleeding; Acute deep vein thrombosis (DVT) of distal vein of left lower extremity (HCC); Family history of pancreatic cancer; Family history of primary liver cancer Start: 01-24-2023 End: 01-24-2023 ambulatory MINERVA ANDERSON Facility:[facility] Start: 01-24-2023 End: 01-24-2023 ambulatory Chair 20 Arya Work Phone: Hematology/Oncology Comment on above: Rectal cancer (HCC) (Primary Dx) Start: 01-23-2023 Refill Celeste Hernandez ruma [facility] Work Phone: [facility] HB-3 Comment on above: Refill Request Care Coordination (D VT; Elijosafat) Start: 01-22-2023 End: 01-23-2023 ambulatory Andree Hollis Facility:[facility] Start: 01-22-2023 Telephone encounter Denisha mello RN Work Phone: Hematology/Oncology Comment on above: Care Coordination (U S Order) Start: 01-22-2023 End: 01-23-[address] Work Phone: [facility] Start: 01-22-2023 End: 01-22-20[address] Owen RD Work Phone: Nutrition Therapy Comment on above: Nutrition Counseling Start: 01-22-2023 End: 01-22-2023 Patient encounter procedure Santiago Kong [facility] Start: 01-22-2023 End: 01-22-2023 ambulatory Lab/Port Juan Carlos Arya Work Phone: Hematology/Oncology Comment on above: Rectal cancer (HCC) (Primary Dx) Rectal cancer (HCC) (Primary Dx); Leg swelling; Left ankle swelling Start: 01-18-2023 Telephone encounter Minerva wong MD Work Phone: Hematology/Oncology Comment on above: Lab Orders Start: 01-14-2023 Telephone encounter Denisha mello RN Work Phone: Hematology/Oncology Comment on above: Senior Linux Administrator - O ther (Rectal Bleeding) Start: 01-10-2023 End: 01-11-2023 ambulatory BEADING INSTALLER Cyndee SANCHEZ Facility:[facility] Start: 01-10-2023 End: 01-10-2023 Patient encounter procedure Cyndee SANCHEZ [facility] Start: 01-10-2023 End: 01-10-2023 ambulatory LORENZO OLSON Facility:[facility] Start: 01-10-2023 End: 01-10-2023 ambulatory Chair [...] up call) Start: 12-27-2022 End: 12-28-2022 ambulatory MINERVA ANDERSON Facility:[facility] Start: 12-27-2022 End: 12-27-2022 ambulatory Chair [...] 5FU) Start: 12-20-2022 Telephone encounter Celeste Bray [facility] Work Phone: Hematology/Oncology Comment on above: Erroneous encounter- disregard Start: 12-19-2022 Telephone encounter Milton Ward RN [facility] Radiology Procedure Comment on above: Radiology Pre Proced ure Instructions Start: 12-18-2022 Patient encounter status Minerva Anderson MD Work Phone: Hematology/Oncology Start: 12-18-2022 Telephone encounter Minerva wong MD Work Phone: Hematology/Oncology Comment on above: Lab Orders Start: 12-17-2022 End: 12-17-2022 ambulatory Minerva Anderson MD Work Phone: Hematology/Oncology Comment on above: Rectal cancer (HCC) (Primary Dx); Lung nodules Start: 12-17-2022 End: 12-17-2022 Patient encounter procedure Minerva Anderson MD Work Phone: [facility] Start: 12-17-2022 Telephone encounter Minerva wong MD [facility] Comment on above: Referral Information (Port placement) Start: 11-20-2022 Telephone encounter Katerina Hargrove RN [...] (HCC) Start: 11-07-2022 Telephone encounter Andree eaton APRN.BEADING INSTALLER Work Phone: Radiation Oncology Comment on above: Pain Orders Start: 11-05-2022 End: 11-05-2022 Patient encounter procedure Dania Vásquez MD Work Phone: Radiation Oncology Comment on above: Rectal cancer (HCC) (Primary Dx) Start: 10-29-2022 End: 10-29-2022 ambulatory Andree Hollis APRN.BEADING INSTALLER Work Phone: Hematology/Oncology Comment on above: Rectal cancer (HCC) (Primary Dx); Abnormal PET scan of lung; Pulmonary embolus with infarction (HCC); Rheumatoid arthritis involving multiple sites, unspecified whether rheumatoid factor present (HCC) Start: 10-29-2022 End: 10-29-2022 Patient encounter procedure Andree Hollis APRN.CNP Work Phone: [facility] Comment on above: Rectal cancer (HCC) (Primary Dx) Start: 10-24-2022 Refill Oliva Brewer [facility] arm Services Start: 10-24-2022 End: 10-24-2022 Patient encounter procedure ASHLEY TRINIDAD [facility] Start: 10-23-2022 End: 10-23-2022 Patient encounter procedure Dania Vásquez MD Work Phone: Radiation Oncology Comment on above: Rectal adenocarcinom a (HCC) Start: 10-19-2022 End: 10-19-[address] Work Phone: [facility] Start: 10-19-2022 End: 10-19-20[address]Ha Owen RD Work Phone: Nutrition Therapy Comment on above: Nutrition Counseling Start: 10-16-2022 End: 10-16-2022 Patient encounter procedure Dania Vásquez MD Work Phone: Radiation Oncology Comment on above: Rectal adenocarcinom a (HCC) (Primary Dx) Start: 10-11-2022 End: 10-11-2022 ambulatory Andree Hollis APRN.BEADING INSTALLER Work Phone: Hematology/Oncology Comment on above: Rectal cancer (HCC) (Primary Dx); Pulmonary embolus with infarction (HCC) Start: 10-11-2022 End: 10-11-2022 Patient encounter procedure Andree Hollis APRN.CNP Work Phone: [facility] Start: 10-11-2022 Telephone encounter Denisha Duarte Hematology/Oncology Comment on above: Care Coordination (O ral Anti-Cancer Agent Follow Up) Start: 10-10-2022 End: 10-10-2022 ambulatory [facility] Facility:[facility] Start: 10-09-2022 Telephone encounter Hang garay MD Work Phone: [facility] Endoscopy - ENDO Comment on above: Appointment Start: 10-08-2022 End: 10-08-2022 ambulatory LORENZO Dailey TOMAS Facility:[facility] Start: 10-08-2022 End: 10-08-2022 ambulatory Hang Maier MD Work Phone: Pulmonology Comment on above: Adenopathy (Primary Dx); Rectal adenocarcinoma (HCC); Rheumatoid arthritis involving multiple sites, unspecified whether rheumatoid factor present (HCC) Start: 10-08-2022 End: 10-08-2022 Telemedicine consultation with patient Hang Maier MD Work Phone: [facility] Start: 10-08-2022 End: 10-08-2022 Patient encounter procedure [...] End: 10-03-2022 Patient encounter procedure Cyndee SANCHEZ [facility] Start: 10-03-2022 End: 10-03-2022 Patient encounter procedure Cyndee SANCHEZ [facility] Start: 10-02-2022 End: 10-02-2022 Patient encounter [...] Start: 10-01-2022 End: 10-01-2022 ambulatory Lorenzo Olson Facility:[facility] Start: 10-01-2022 End: 10-01-2022 ambulatory DO Lyonssaba Dailey Tomas Work Phone: [facility] Work Phone: Start: 10-01-2022 End: 10-01-2022 Patient encounter procedure Lorenzo Tomas Work Phone: [facility] [place] Start: 10-01-2022 Telephone encounter Denisha Duarte Hematology/Oncology [...] encounter Minerva wong MD Work Phone: [facility] [employer] Comment on above: Future Appointment Start: 09-20-2022 End: 09-20-2022 Patient encounter procedure Dania Vásquez MD Work Phone: Radiation Oncology Comment on above: Rectal adenocarcinom a (HCC) (Primary Dx) Start: 09-18-2022 Telephone encounter Minerva wong MD Work Phone: [facility] Comment on above: Call Back 48 Hours Start: 09-17-2022 End: 09-17-2022 ambulatory Minerva Anderson MD Work Phone: Hematology/Oncology Comment on above: Rectal cancer (HCC) (Primary Dx); Rheumatoid arthritis involving multiple sites, unspecified whether rheumatoid factor present (HCC) Start: 09-17-2022 End: 09-17-2022 Patient encounter procedure Minerva Anderson MD Work Phone: [facility] Start: 09-17-2022 Chart abstracting Minerva del cid MD Work Phone: Hematology/Oncology Start: 09-11-2022 End: 09-12-2022 ambulatory [facility] Start: 09-06-2022 Telephone encounter Minal Cain Hematology/Oncology Comment on above: Appointment Start: 09-05-2022 End: 09-05-2022 ambulatory [facility] Start: 08-22-2022 End: 08-22-2022 ambulatory [facility] Start: 08-20-2022 End: 08-20-2022 Patient encounter procedure Mervat SLAUGHTER [facility] Start: 08-14-2022 End: 08-14-2022 Patient encounter procedure Mervat SLAUGHTER [facility] General Surgery [place] Start: 08-06-2022 End: 02-14-2023 Recurring JONAH KARUNA KERENELAINEJAQUELIN [facility] Start: 05-31-2022 End: 05-31-2022 Lab Drop off VALERIE ROBERTS [facility] Start: 05-31-2022 End: 05-31-2022 Patient encounter procedure VALERIE ROBERTS [facility] Family Medicine [place] Start: 04-30-2022 End: 07-29-2022 Recurring JONAH VELIZELAINEJAQUELIN [facility] Start: 04-03-2022 End: 04-03-2022 Patient encounter procedure Cyndee SANCHEZ [facility] Start: 11-07-2021 End: 02-05-2022 Patient encounter procedure Lorenzo OLSON [facility] Start: 04-04-2021 Encounter for preprocedural laboratory examination [facility] Start: 04-03-2021 End: 04-03-[address] LORENZO OLSON Facility:[facility] Start: 03-31-2021 Encounter for preprocedural cardiovascular examination [facility] Start: 03-31-2021 Encounter for preprocedural laboratory examination [facility] Start: 03-28-2021 End: 03-29-[address] [...] count complete auto&auto difrntl wbc Andree Hollis PICCOLO 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 Work Phone: Start: 02-19-2023 Blood count complete [...] 09-28-2015 Cystoscopy Lorenzo HAGER Cervical arthrodesis Lorenzo OLSON Cervical arthrodesis Mervat SLAUGHTER Colonoscopy Lorenzo OLSON Hammer toe operation Lorenzo OLSON Hemorrhoidectomy Mervat Dumont Plan of Treatment Date Care Activity Detail Author Start: 11-05-2028 Screening for malign ant neoplasm of colon [facility] Start: 07-09-2028 Colorectal Cancer Screening Colorectal Cancer Screening [facility] Start: 07-09-2028 Screening for malign ant neoplasm of colon [facility] Start: 07-09-2028 SIGMOIDOSCOPY SIGMOIDOSCOPY [facility] Start: 12-19-2026 Diabetes Screening Diabetes Screenwi g [facility] Start: 11-21-2026 Diabetes Screening Diabetes Screenin g [facility] Start: 08-27-2026 Diabetes Screening Diabetes Screenin g [facility] Start: 06-20-2026 DIABETES SCREEN DIABETES SCREEN [facility] Start: 06-20-2026 Diabetes Screening Diabetes Screenwi g [facility] Start: 05-28-2026 DIABETES SCREEN DIABETES SCREEN [facility] Start: 05-14-2026 DIABETES SCREEN DIABETES SCREEN [facility] Start: 04-16-2026 DIABETES SCREEN DIABETES SCREEN [facility] Start: 03-19-2026 DIABETES SCREEN DIABETES SCREEN [facility] Start: 03-05-2026 DIABETES SCREEN DIABETES SCREEN [facility] Start: 02-19-2026 DIABETES SCREEN DIABETES SCREEN [facility] Start: 02-05-2026 DIABETES SCREEN DIABETES SCREEN [facility] Start: 01-22-2026 DIABETES SCREEN DIABETES SCREEN [facility] Start: 01-08-2026 DIABETES SCREEN DIABETES SCREEN [facility] Start: 12-25-2025 DIABETES SCREEN DIABETES SCREEN [facility] Start: 12-17-2025 DIABETES SCREEN DIABETES SCREEN [facility] Start: 11-19-2025 DIABETES SCREEN DIABETES SCREEN [facility] Start: 10-29-2025 [facility]ABETES SCREEN [facility] Start: 10-11-2025 DIABETES SCREEN DIABETES SCREEN [facility] Start: 10-02-2025 DIABETES SCREEN DIABETES SCREEN [facility] Start: 09-17-2025 DIABETES SCREEN DIABETES SCREEN [facility] Start: 04-09-2024 Colonoscopy COLONOSCOPY [facility] Start: 04-09-2024 COLORECTAL CANCER SCREENING COLORECTAL CANCER SCREENING [facility] Start: 04-09-2024 Screening for malign ant neoplasm of colon Colonoscopy [facility] Start: 01-03-2024 ambulatory Ambulatory Facility:[facility] Ferrera Start: 10-21-2023 Advance Directive Discussion Advance Directive Discussion [facility] Start: 10-21-2023 Depression Assessment Depression Ass essment [facility] Start: 09-04-2023 Covid-19 Vaccine () Covid-19 Vaccine () [facility] Start: 08-24-2023 End: 10-24-2023 Carcinoembryonic Ag [Mass/volume] in Serum or Plasma CEA BLD Lab Routine Encounter for follow-up surveillance of rectal cancer Expected: 08/24/2023 (Approximate), Expires: 10/24/2023 [facility] Work Phone: Comment on above: Expected: 08/24/2023 (Approximate), Expires: 10/24/2023 Start: 08-03-2023 End: 10-03-2023 Carcinoembryonic Ag [Mass/volume] in Serum or Plasma CEA BLD Lab Routine Encounter for follow-up surveillance of rectal cancer Expected: 08/03/2023, Expires: 10/03/2023 [facility] Work Phone: Comment on above: Expected: 08/03/2023 , Expires: 10/03/2023 Start: 06-21-2023 Covid-19 Vaccine () Covid-19 Vaccine () [facility] Start: 06-21-2023 Influenza vaccination [facility] Start: 06-20-2023 End: 08-20-2023 Carcinoembryonic Ag [Mass/volume] in Serum or Plasma [facility] Work Phone: Comment on above: Expected: 06/20/2023 , Expires: 08/20/2023 Start: 06-20-2023 End: 08-20-2023 CBC W Auto Differential panel - Blood CBC + DIFF Lab Routine Rectal cancer (HCC) Expected: 06/20/2023, Expires: 08/20/2023 [facility] Work Phone: Comment on above: Expected: 06/20/2023 , Expires: 08/20/2023 Start: 06-20-2023 End: 08-20-2023 Comprehensive metabolic 2000 panel - Serum or Plasma COMP METABOLIC PANEL Lab Routine Rectal cancer (HCC) Expected: 06/20/2023, Expires: 08/20/2023 [facility] Work Phone: Comment on above: Expected: 06/20/2023 , Expires: 08/20/2023 Start: 06-20-2023 End: 08-20-2023 Magnesium [Mass/volume] in Serum or Plasma MAGNESIUM BLD Lab Routine Rectal cancer (HCC) Expected: 06/20/2023, Expires: 08/20/2023 [facility] Work Phone: Comment on above: Expected: 06/20/2023 , Expires: 08/20/2023 Start: 05-22-2023 MR Cervical spine WO and W contrast IV [facility] Start: 05-22-2023 MRI of cervical spin e with contrast MR cervical spine wo/w con [facility] Start: 03-05-2023 End: 05-05-2023 Carcinoembryonic Ag [Mass/volume] in Serum or Plasma CEA BLD Lab Routine Rectal cancer (HCC) Expected: 03/05/2023, Expires: 05/05/2023 [facility] Work Phone: Comment on above: Expected: 03/05/2023 , Expires: 05/05/2023 Start: 03-05-2023 End: 05-05-2023 CBC W Auto Differential panel - Blood CBC + DIFF Lab Routine Rectal cancer (HCC) Expected: 03/05/2023, Expires: 05/05/2023 [facility] Work Phone: Comment on above: Expected: 03/05/2023 , Expires: 05/05/2023 Start: 03-05-2023 End: 05-05-2023 Comprehensive metabolic 2000 panel - Serum or Plasma COMP METABOLIC PANEL Lab Routine Rectal cancer (HCC) Expected: 03/05/2023, Expires: 05/05/2023 [facility] Work Phone: Comment on above: Expected: 03/05/2023 , Expires: 05/05/2023 Start: 02-07-2023 End: 04-09-2023 CBC W Auto Differential panel - Blood CBC + DIFF Lab Routine Leg swelling Rectal cancer (HCC) Left ankle swelling Expected: 02/07/2023, Expires: 04/09/2023 [facility] Work Phone: Comment on above: Expected: 02/07/2023 , Expires: 04/09/2023 Start: 02-07-2023 End: 04-09-2023 Comprehensive metabolic 2000 panel - Serum or Plasma COMP METABOLIC PANEL Lab Routine Leg swelling Rectal cancer (HCC) Left ankle swelling Expected: 02/07/2023, Expires: 04/09/2023 [facility] Work Phone: Comment on above: Expected: 02/07/2023 , Expires: 04/09/2023 Start: 01-18-2023 End: 03-20-2023 Carcinoembryonic Ag [Mass/volume] in Serum or Plasma CEA BLD Lab Routine Rectal cancer (HCC) Expected: 01/18/2023, Expires: 03/20/2023 [facility] Work Phone: Comment on above: Expected: 01/18/2023 , Expires: 03/20/2023 Start: 01-18-2023 End: 03-20-2023 CBC W Auto Differential panel - Blood CBC + DIFF Lab Routine Rectal cancer (HCC) Expected: 01/18/2023, Expires: 03/20/2023 [facility] Work Phone: Comment on above: Expected: 01/18/2023 , Expires: 03/20/2023 Start: 01-18-2023 End: 03-20-2023 Comprehensive metabolic 2000 panel - Serum or Plasma COMP METABOLIC PANEL Lab Routine Rectal cancer (HCC) Expected: 01/18/2023, Expires: 03/20/2023 [facility] Work Phone: Comment on above: Expected: 01/18/2023 , Expires: 03/20/2023 Start: 12-25-2022 End: 02-24-2023 CBC W Auto Differential panel - Blood CBC + DIFF Lab Routine Rectal cancer (HCC) Expected: 12/25/2022, Expires: 02/24/2023 [facility] Work Phone: Comment on above: Expected: 12/25/2022 , Expires: 02/24/2023 Start: 12-25-2022 End: 02-24-2023 Comprehensive metabolic 2000 panel - Serum or Plasma COMP METABOLIC PANEL Lab Routine Rectal cancer (HCC) Expected: 12/25/2022, Expires: 02/24/2023 [facility] Work Phone: Comment on above: Expected: 12/25/2022 , Expires: 02/24/2023 Start: 11-21-2022 End: 01-21-2023 Carcinoembryonic Ag [Mass/volume] in Serum or Plasma CEA BLD Lab Routine Rectal cancer (HCC) Abnormal PET scan of lung Pulmonary embolus with infarction (HCC) Rheumatoid arthritis involving multiple sites, unspecified whether rheumatoid factor present (HCC) Expected: 11/21/2022, Expires: 01/21/2023 [facility] Work Phone: Comment on above: Expected: 11/21/2022 , Expires: 01/21/2023 Start: 11-21-2022 End: 01-21-2023 CBC W Auto Differential panel - Blood CBC + DIFF Lab Routine Rectal cancer (HCC) Abnormal PET scan of lung Pulmonary embolus with infarction (HCC) Rheumatoid arthritis involving multiple sites, unspecified whether rheumatoid factor present (HCC) Expected: 11/21/2022, Expires: 01/21/2023 [facility] Work Phone: Comment on above: Expected: 11/21/2022 , Expires: 01/21/2023 Start: 11-21-2022 End: 01-21-2023 Comprehensive metabolic 2000 panel - Serum or Plasma COMP METABOLIC PANEL Lab Routine Rectal cancer (HCC) Abnormal PET scan of lung Pulmonary embolus with infarction (HCC) Rheumatoid arthritis involving multiple sites, unspecified whether rheumatoid factor present (HCC) Expected: 11/21/2022, Expires: 01/21/2023 [facility] Work Phone: Comment on above: Expected: 11/21/2022 , Expires: 01/21/2023 Start: 11-01-2022 End: 01-01-2023 Carcinoembryonic Ag [Mass/volume] in Serum or Plasma CEA BLD Lab Routine Pulmonary embolus with infarction (HCC) Rectal cancer (HCC) Expected: 11/01/2022, Expires: 01/01/2023 [facility] Work Phone: Comment on above: Expected: 11/01/2022 , Expires: 01/01/2023 Start: 11-01-2022 End: 01-01-2023 CBC W Auto Differential panel - Blood CBC + DIFF Lab Routine Pulmonary embolus with infarction (HCC) Rectal cancer (HCC) Expected: 11/01/2022, Expires: 01/01/2023 [facility] Work Phone: Comment on above: Expected: 11/01/2022 , Expires: 01/01/2023 Start: 11-01-2022 End: 01-01-2023 Comprehensive metabolic 2000 panel - Serum or Plasma COMP METABOLIC PANEL Lab Routine Pulmonary embolus with infarction (HCC) Rectal cancer (HCC) Expected: 11/01/2022, Expires: 01/01/2023 [facility] Work Phone: Comment on above: Expected: 11/01/2022 , Expires: 01/01/2023 Start: 10-21-2022 ADVANCE DIRECTIVE DISCUSSION ADVANCE DIRECTIVE DISCUSSION [facility] Start: 10-21-2022 DEPRESSION ASSESSMENT DEPRESSION ASS ESSMENT [facility] Start: 10-01-2022 MR Abdomen WO and W contrast IV [facility] Start: 10-01-2022 MRI of abdomen with contrast MR abdomen wo/w con [facility] Start: 09-17-2022 End: 11-17-2022 Carcinoembryonic Ag [Mass/volume] in Serum or Plasma [facility] Work Phone: Comment on above: Expected: 09/17/2022 , Expires: 11/17/2022 Start: 09-17-2022 End: 11-17-2022 CBC W Auto Differential panel - Blood CBC + DIFF Lab Routine Rectal cancer (HCC) Expected: 09/17/2022, Expires: 11/17/2022 [facility] Work Phone: Comment on above: Expected: 09/17/2022 , Expires: 11/17/2022 Start: 09-17-2022 End: 11-17-2022 Comprehensive metabolic 2000 panel - Serum or Plasma COMP METABOLIC PANEL Lab Routine Rectal cancer (HCC) Expected: 09/17/2022, Expires: 11/17/2022 [facility] Work Phone: Comment on above: Expected: 09/17/2022 , Expires: 11/17/2022 Start: 06-21-2022 Influenza vaccination INFLUENZA (#1) [facility] Start: 11-15-2021 COVID-19 VACCINE (4 - Booster) COVID-19 VACCINE (4 - Booster) [facility] Start: 11-15-2021 COVID-19 VACCINE (6 - Booster) COVID-19 VACCINE (6 - Booster) [facility] Start: 11-15-2021 COVID-19 VACCINE (6 - Mixed Product risk series) COVID-19 VACCINE (6 - Mixed Product risk series) [facility] Start: 10-21-2021 ADVANCE DIRECTIVE DISCUSSION ADVANCE DIRECTIVE DISCUSSION [facility] Start: 10-21-2021 DEPRESSION ASSESSMENT DEPRESSION ASS ESSMENT [facility] Start: 08-04-2021 DIABETES SCREEN DIABETES SCREEN [facility] Start: 02-17-2021 COVID-19 VACCINE (3 - Booster for Pfizer series) COVID-19 VACCINE (3 - Booster for Pfizer series) [facility] Start: 11-19-2020 SHINGRIX VACCINE (2 of 2) NICOLAS GRIX VACCINE (2 of 2) [facility] Start: 2017 PNEUMOCOCCAL: 65+ (1 - PCV) PNEUMOCOCCAL: 65+ (1 - PCV) [facility] Start: 2012 RSV Vaccine (1 - 1-d ose 60+ series) RSV Vaccine (1 - 1-dose 60+ series) [facility] Start: 2002 SHINGRIX VACCINE (1 of 2) NICOLAS GRIX VACCINE (1 of 2) [facility] Start: 1997 COLOGUARD (FIT-DNA) COLOGUARD (FIT-D NA) [facility] Start: 1997 Colonoscopy COLONOSCOPY [facility] Start: 1997 COLORECTAL CANCER SCREENING COLORECTAL CANCER SCREENING [facility] Start: [address] COLONOGRAPHY [facility] Start: 1997 FECAL OCCULT BLOOD FECAL OCCULT BLOO D [facility] Start: 1997 Screening for malign ant neoplasm of colon [facility] Start: 1997 SIGMOIDOSCOPY SIGMOIDOSCOPY [facility] Start: 1987 Lipid 1996 panel - S regina or Plasma Lipid Screening [facility] Start: 1987 [facility]id [facility] Start: 1987 LIPID SCREEN LIPID SCREEN [facility] Start: 1971 Urine microalbumin profile [facility] Start: 1970 HEPATITIS C SCREENING HEPATITIS C SC [facility] Start: 1970 Hepatitis C screening Hepatitis C [facility] Carcinoembryonic Ag [Mass/volume] in Serum or Plasma CEA BLD Lab Routine Rectal cancer (HCC) Primary hypercoagulable state (HCC) Rheumatoid arthritis involving multiple sites, unspecified whether rheumatoid factor present (HCC) 03/19/2023 8:[address] [facility] Work Phone: Carcinoembryonic Ag [Mass/volume] in Serum or Plasma CEA BLD Lab Routine Rectal cancer (HCC) 04/16/2023 8:[address] [facility] Work Phone: Carcinoembryonic Ag [Mass/volume] in Serum or Plasma CEA BLD Lab Routine Rectal cancer (HCC) 05/28/2023 9:[address] [facility] Work Phone: End: 10-09-2024 Carcinoembryonic Ag [Mass/volume] in Serum or Plasma CEA BLD Lab Routine Encounter for follow-up surveillance of rectal cancer Every 3 months for 4 Occurrences starting 10/10/2023 until 10/09/2024 [facility] Work Phone: Comment on above: Every 3 months for 4 Occurrences starting 10/10/2023 until 10/09/2024 End: 12-18-2022 CBC W Auto Differential panel - Blood CBC + DIFF Lab Routine Rectal cancer (HCC) Once per week for 6 Occurrences starting 11/07/2022 until 12/18/2022 [facility] Work Phone: Comment on above: Once per week for 6 Occurrences starting 11/07/2022 until 12/18/2022 End: 02-08-2024 COLONOSCOPY DIAGNOSTIC COLONOSCOPY DIAGNOSTIC Endoscopy Routine Rectal cancer (HCC) 1 Occurrences starting 02/07/2023 until 02/08/2024 [facility] Work Phone: Comment on above: 1 Occurrences starti ng 02/07/2023 until 02/08/2024 End: 12-19-2023 Ct abdomen & pelvis w/contrast material CT ABD/PEL W IVCON Radiology Routine Lung nodules Rectal cancer (HCC) 1 Occurrences starting 11/19/2022 until 12/19/2023 [facility] Work Phone: Comment on above: 1 Occurrences starti ng 11/19/2022 until 12/19/2023 End: 06-01-2024 Ct abdomen w/contrast material CT ABDOMEN W IVCON Radiology Routine Malignant neoplasm of rectum (HCC) 1 Occurrences starting 05/03/2023 until 06/01/2024 [facility] Work Phone: Comment on above: 1 Occurrences starti ng 05/03/2023 until 06/01/2024 End: 07-24-2024 Ct abdomen w/contrast material CT ABDOMEN W IVCON Radiology Routine Malignant neoplasm of rectum (HCC) 1 Occurrences starting 06/25/2023 until 07/24/2024 [facility] Work Phone: Comment on above: 1 Occurrences starti ng 06/25/2023 until 07/24/2024 End: 12-19-2023 CT CHEST W IVCON CT CHEST W IVCON Radiology Routine Lung nodules 1 Occurrences starting 11/19/2022 until 12/19/2023 [facility] Work Phone: Comment on above: 1 Occurrences starti ng 11/19/2022 until 12/19/2023 End: 06-01-2024 CT CHEST W IVCON CT CHEST W IVCON Radiology Routine Malignant neoplasm of rectum (HCC) 1 Occurrences starting 05/03/2023 until 06/01/2024 [facility] Work Phone: Comment on above: 1 Occurrences starti ng 05/03/2023 until 06/01/2024 End: 07-24-2024 CT CHEST W IVCON CT CHEST W IVCON Radiology Routine Malignant neoplasm of rectum (HCC) 1 Occurrences starting 06/25/2023 until 07/24/2024 [facility] Work Phone: Comment on above: 1 Occurrences starti ng 06/25/2023 until 07/24/2024 CT SIM PLANNING RADI ATION ONCOLOGY CT SIM PLANNING RADIATION ONCOLOGY Radiology Routine Rectal adenocarcinoma (HCC) Ordered: 09/24/2022 [facility] Work Phone: Comment on above: Ordered: 09/24/2022 End: 2023 ECG COMPLETE ECG COMPLETE ECG Routine Adenopathy 1 Occurrences starting 2022 until 2023 [facility] Work Phone: Comment on above: 1 Occurrences starti ng 2022 until 2023 IR PORTOCATH PLACEMENT IR PORTOC ATH PLACEMENT Radiology Routine Rectal cancer (HCC) Ordered: 12/17/2022 [facility] Work Phone: Comment on above: Ordered: 12/17/2022 End: 10-17-2023 Mri abdomen w/o & w/contrast material MRI ABDOMEN WO/W IVCON Radiology Routine Rectal cancer (HCC) 1 Occurrences starting 09/17/2022 until 10/17/2023 [facility] Work Phone: Comment on above: 1 Occurrences starti ng 09/17/2022 until 10/17/2023 End: 03-08-2024 Mri pelvis w/o & w/contrast material MRI RECTUM WO/W IVCON Radiology Routine Malignant neoplasm of rectum (HCC) 1 Occurrences starting 02/07/2023 until 03/08/2024 [facility] Work Phone: Comment on above: 1 Occurrences starti ng 02/07/2023 until 03/08/2024 End: 06-01-2024 Mri pelvis w/o & w/contrast material MRI RECTUM WO/W IVCON Radiology Routine Malignant neoplasm of rectum (HCC) 1 Occurrences starting 05/03/2023 until 06/01/2024 [facility] Work Phone: Comment on above: 1 Occurrences starti ng 05/03/2023 until 06/01/2024 End: 10-17-[address] attenuation skull base mid-thigh NM PET/CT SKULL-THIGH INITIAL Radiology Routine Rectal cancer (HCC) 1 Occurrences starting 09/17/2022 until 10/17/2023 [facility] Work Phone: Comment on above: 1 Occurrences starti ng 09/17/2022 until 10/17/2023 SARS-CoV-2 (COVID-19 ) RNA [Presence] in Respiratory specimen by MIGUE with probe detection SELF CHECK COVID Microbiology Routine Adenopathy Ordered: 2022 [facility] Work Phone: Comment on above: Ordered: 2022 End: 05-03-2024 SIGMOIDOSCOPY SIGMOIDOSCOPY Endoscopy Routine Encounter for follow-up surveillance of rectal cancer 1 Occurrences starting 05/03/2023 until 05/03/2024 [facility] Work Phone: Comment on above: 1 Occurrences starti ng 05/03/2023 until 05/03/2024 End: 07-24-2024 SIGMOIDOSCOPY SIGMOIDOSCOPY Endoscopy Routine Encounter for follow-up surveillance of rectal cancer 1 Occurrences starting 07/24/2023 until 07/24/2024 [facility] Work Phone: Comment on above: 1 Occurrences starti ng 07/24/2023 until 07/24/2024 End: 02-21-2024 US DVT LOWER LEFT US DVT LOWER LEFT Radiology Routine Leg swelling 1 Occurrences starting 01/22/2023 until 02/21/2024 [facility] Work Phone: Comment on above: 1 Occurrences starti ng 01/22/2023 until 02/21/2024 [facility] Immunizations Immunization Date Immunization Notes Care Provider Fa [facility] 09-20-2021 COVID-19 original vaccine, age 12+ yr, monovalent (PFIZER-BIONTECH - PURPLE TOP) Minerva Anderson MD Work Phone: [facility] 09-20-2021 COVID-19 vaccine (UNSPECIFIED) Minerva Anderson MD Work Phone: [facility] 07-25-2021 influenza, high dose seasonal, preservative-free Minerva Anderson MD Work Phone: [facility] 07-25-2021 influenza virus vaccine, unspecified formulation Deborah Norman MD Work Phone: [facility] 12-23-2020 COVID-19 vaccine (UNSPECIFIED) Minerva Anderson MD Work Phone: [facility] 12-23-2020 SARS-CoV-2 (COVID-19) mRNA BNT-162b2 susux Lorenzo OLSON [facility] 12-02-2020 COVID-19 vaccine (UNSPECIFIED) Minerva Anderson MD Work Phone: [facility] 12-02-2020 SARS-CoV-2 (COVID-19) mRNA BNT-162b2 vax Lorenzo TOMAS [facility] Comment on above: Result Comment: Impa ctsiis scanned 10-21-2020 SARS-CoV-2 (COVID-19) mRNA BNT-162b2 vax Lorenzo OLSON [facility] Comment on above: Result Comment: Pt i s fully vaccinated but does not know the dates 09-24-2020 zoster vaccine recombinant Lorenzo OLSON [facility] 07-21-2020 influenza, high-dose, quadrivalent vaccine (FLUZONE HIGH DOSE QUADRIVALENT) Minerva Anderson MD Work Phone: [facility] 09-15-2019 pneumococcal polysaccharide vaccine, 23 valent Lorenzo OLSON [facility] 07-27-2019 influenza nasal, unspecified formulation Minerva Anderson MD Work Phone: [facility] 07-27-2019 influenza virus vaccine, unspecified formulation Lorenzo OLSON [facility] 07-14-2018 pneumococcal conjugate vaccine, 13 valent Lorenzo OLSON [facility] 10-25-2009 novel [id number], preservative-free, injectable Minerva Anderson MD Work Phone: [facility] 03-31-1997 hepatitis B vaccine, adult dosage Minerva Anderson MD Work Phone: [facility] NEGATED: Highlighted row has not occurred! 8 pneumococcal polysaccharide vaccine, 23 valent Patient Objection Valencia Torres Other [employer] Other Payers Date Payer Category Payer Self-pay 2022 Unknown [id number] 2022 Medicare [id number] 2019 Unknown [id number] 2017 Medicare MEDICARE MEDICAR E A AND B [id number] 2017-Present [phone] [place] [address] Medicare [id number] 2017 Medicare [id number] 1959 Medicare [id number] 1959 Unknown [id number] 1952 Unknown [id number] 2.16.840.1.934120.3.579.2.593 1952 Unknown [id number] 2.16.840.1.492162.3.579.2.593 1952 Unknown [id number] 2.16.840.1.281414.3.579.2.593 1952 Unknown [id number] 2.16.840.1.156213.3.579.2.593 1952 Unknown [id number] 2.16.840.1.108356.3.579.2.1259 1952 Unknown [id number] 2.16.840.1.323747.3.579.2.727 1952 Unknown [id number] 2.16.840.1.884803.3.579.2.727 1952 Unknown [id number] 2.16.840.1.983880.3.579.2.727 1952 Unknown [id number] 2.16.840.1.911472.3.579.2.727 1952 Unknown [id number] 2.16.840.1.197566.3.579.2.727 1952 Unknown [id number] 2.16.840.1.844543.3.579.2.727 1952 Unknown [id number] 2.16.840.1.743042.3.579.2.727 1952 Unknown [id number] 2.16.840.1.269064.3.579.2.727 1952 Unknown [id number] 2.16.840.1.888924.3.579.2.72 1952 Unknown [id number] 2.16.840.1.099903.3.579.2.72 1952 Unknown [id number] 2.16.840.1.387440.3.579.2.72 1952 Unknown [id number] 2.16.840.1.468301.3.579.2. 1952 Unknown [id number] 2.16.840.1.395737.3.579.2.72 Unknown [id number] Unknown [id number] 2.16.840.1.712612.3.579.2.531 Unknown [id number] 2.16.840.1.539552.3.579.2.531 Unknown [id number] 2.16.840.1.820857.3.579.2.531 Unknown [id number] 2.16.840.1.319174.3.579.2.531 Social History Date Type Detail Facility Start: 07-11-2021 End: 12-25-2022 Tobacco smoking status Never smoked tobacco (finding) [facility] Tobacco smoking status Never [facility] Start: 02-21-2023 End: 04-16-2023 Sex Assigned At Male [facility] Start: 08-04-2018 End: 12-25-2022 Tobacco use and exposure Smokeless tobacco non-user [facility] Start: 08-04-2018 End: 11-05-2023 Alcohol intake Current drinker of alcohol (finding) [facility] Start: 08-04-2018 Alcohol Comment rarely [facility] Start: 1950 Sex Assigned At Not on file [facility] Start: 09-07-2022 End: 09-24-2022 Exposure to SARS-CoV-2 (event) Not sure [facility] Start: 1950 Sex Assigned At Male [facility] Start: 02-21-2023 End: 04-16-2023 History of Social function [facility] NEGATED: Highlighted rowStart: NINF History of tobacco use Passive smoker [facility] Medical Equipment Procedure Code Equipment Code Equipment Origin al Text Equipment Identifier Dates -12/20/2022 [id number] Start: 12-20-2022 Comment on above: Description: [facility] ; Saline only flushes Functional Status Date Assessment Result Facility 10-09-2023 Functional Status N/A [facility] 05-07-2023 Functional Status N/A [facility] 04-29-2023 Functional Status No [facility] 03-18-2023 Functional Status N/A [facility] 01-22-2023 Functional Status No [facility] 10-24-2022 Functional Status N/A [facility] 10-03-2022 Functional Status No [facility] 08-20-2022 Functional Status N/A [facility] 08-14-2022 Functional Status N/A [facility] General Surgery [place] 05-31-2022 Functional Status N/A [facility] Family Medicine [place] 04-03-2022 Functional Status N/A [facility] Clinical Notes 11-14-2019 to 12-23-2023 Telephone Encounter - Minal Corey RN - 12/23/2023 1:07 PM ESTTelephone Encounter - Minal Corey RN - 12/23/2023 1:[facility] Muniz RT(R) - 12/03/2023 2:00 PM EST Note Date & Type Note Facility 12-23-2023 Miscellaneous Notes Formattin g of this note might be different from the original. Pt informed of Mata's message and denies any questions, needs or concerns at this time. Appointment verified. Minal Corey RN ----- Message from Minerva Anderson MD sent at 12/23/2023 12:53 PM EST ----- Please inform the patient that his scans and labs are very stable with no evidence of disease. We will continue as planned, and see him back as scheduled. 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 Author Type: Registered Nurse Type: Progress Notes Filed: 11/05/2023 10:53 Note Text: Sigmoidoscopy order [facility] 10-10-2023 Note HNO ID: [id number] Author: Chelsie Ríos RN Service: ? Author Type: Registered Nurse Type: Progress Notes Filed: 10/10/2023 9:08 AM Note Text: CEA order [facility] 10-10-2023 History of Presen t illness Narrative CEA order documented in this encounter [facility] 10-09-2023 Evaluation + Plan note Extrac swati from: Title:Pain Managment Follow up Author:Cyndee Morales Date:10/09/23 Impression and Plan Patient is a 73-year-old male with a past medical history significant for lumbar spondylosis, lumbar stenosis and lumbar neuritis. he underwent a full course of physical therapy without improvement. Wyme-kwj-qrqdfgq medications have not helped. He is not [...] Date:11/01/2023 01:45:00 PM Scheduled Provider[facility] Type:Cardiology Follow Up (FT) Appointment Date:01/03/2024 09:45:00 AM Scheduled Provider:Corey MCKEE MD Location:[facility] Appointment Type:URO Office Visit Future Scheduled Tests Radiology* XR Abdomen 1 View 09/20/22 [facility]11-08-2023 Miscellaneous Notes* Telephone Encounter - Chelsie [...] you for your help. documented [facility]-2023 Note [id number] [facility] 08-27-20[facility]-04-2023 NoteHNO ID: [id number] Author: Chelsie Ríos RN Service: ? Author Type: Registered Nurse Type: Progress Notes Filed: 07/24/2023 2:27 PM Note Text: CEA and [facility]moid[facility]10-04-2023 History of Present illness Narrative* Chelsie Ríos RN - 07/24/2023 2:22 PM EDT CEA and sigmoidoscopy order documented in this encounterPro[facility]09-26-2023 Evaluation note* Encounter Date Diagnosis Assessment Notes [...] M54.50) Reviewed xray of low back from [facility] 05/21/2023, which shows there is prominent narrowing [...] ROM/ pain is minimal with Physical Therapy. [employer] Other 09-19-2023 Miscellaneous Notes* Anesthesia PreOp - [...] 2023 TIME: 9:22 AM documented in this encounterProtestant [facility]acon[facility]09-05-2023 NoteHNO ID: [id number] Author: Chelsie Ríos RN Service: ? Author Type: Registered Nurse Type: Progress Notes Filed: 06/25/2023 4:02 PM Note Text: CT chest, CT abdomen ordersMer[facility]09-05-2023 History of Present illness Narrative* Chelsie Ríos RN - 06/25/2023 3:[address] chest, CT abdomen orders documented in this encounterProtestant Deaconess Hospital08-31-2023 NoteMercy Health [facility]08-31-2023 Miscellaneous Notes* Telephone Encounter - Andree Hollis APRN.BEADING INSTALLER - 06/20/2023 10:44 AM EDT The following [...] understanding. Would like script sent to [facility] [place]. RACIEL/Andree: Script pended. Denisha Duarte RN documented in this encounterProtestant Deaconess Hospital08-30-2023 Miscellaneous Notes* Telephone Encounter - Denisha Duarte RN - 06/19/2023 2:[address] Anderson received a call on his [facility] cell today from pt. Pt c/o neuropathy in his hands and feet. would like pt to have labs drawn when here tomorrow for CT. Orders to draw: CBC, CMP, Mg, & CEA. BRHesham/Kari (Andree out of office): Orders pended. Please review and approve. Thanks! Etelvina Allen notified of need for labs. Denisha Duarte RN documented in this encounterProtestant Deaconess Hospital08-29-2023 Evaluation note* Encounter Date Diagnosis Assessment Notes [...] 6 months. May, Neuropathy (ICD-10 - G62.9) [employer] Other 08-08-2023 NoteMer[facility]08-08-2023 History of Present illness Narrative* Minerva Anderson [...] - Squamous mucosa polyp. 08/20/2022 Colonoscopic biopsy ([facility]) Adenocarcinoma of colon (mass at anal verge) [...] polyp was benign. 01/22/2023 Lower extremity Doppler ([facility]) Extensive deep venous thrombosis of the left [...] related to the thorax. 10/01/2022 MRI abdomen ([facility]) No MRI evidence of liver lesion 09/25/2022 [...] No neoplastic hypermetabolic lesions 09/11/2022 MRI pelvis ([facility]) Low rectal neoplasm with suspected early invasion of the internal anal sphincter at the upper canal(MRI category T3b, N0). Few nonenlarged 2 to 3 mm mesorectal lymph nodes. No suspicious lymphadenopathy. 09/11/2022 CT chest, abdomen, pelvis ([facility]) Possible low-attenuation lesion right hepatic lobe [...] indefinitely. Minerva Anderson MD documented in this encounterProtestant Deacon[facility] Hospital07-25-2023 Miscellaneous Notes* Telephone Encounter - Denisha Duarte RN - 05/14/2023 8:22 AM EDT Pt here for repeat potassium today. Lab orders pended. Denisha Duarte RN documented in this encounterProtestant Deaconess Hospital07-18-2023 Evaluation + Plan note Extracted from: Title:NPV [...] Tests Radiology* XR Abdomen 1 View 09/20/22 [facility]07-14-2023 Miscellaneous Notes* Telephone Encounter - Chelsie [...] his best option for colonoscopy. Contact #: [phone] documented in this encounterProtestant Deaconess Hospital07-14-2023 Miscellaneous Notes* Telephone Encounter - Chelsie [...] and CT in September. documented in this encounterProtestant Deaconess Hospital07-14-2023 Miscellaneous Notes* Telephone Encounter - Chelsie Ríos RN - 05/03/2023 9:21 AM EDT Sigmoidoscopy, CEA, MRI rectum and CT chest/abd orders Flex sig and CEA in q 3 month until March [address] in q 6 months until March 2025 documented in this encounterProtestant Deaconess Hospital07-10-2023 Hospital Discharge instructions Patient Education 04/29/2023 09:33:46 Heart-Healthy Eating Plan, Rswp-of-Ozjm Heart-Healthy Eating Plan Heart-healthy meal planning includes: [...] Fats and oils Meat fat, or shortening. [place] butter, hydrogenated oils, palm oil, coconut oil, [...] provider. Document Revised: 02/15/2022 Document Reviewed: 02/15/2022 [employer] Patient Education 2021 [employer]. Follow Up Care 01/22/2023 16:31:22 With:Dilan ARRINGTON, Santiago Matos. Address: When:6 months Comments:Call for sooner apt with new/worsening symptoms [facility]07-07-2023 Miscellaneous Notes* Telephone Encounter - Sonam [...] Verify if he is taking a supplement. Artur, B documented in this encounterProtestant Deaconess Hospital06-27-2023 NoteMer[facility]06-22-2023 Evaluation note* Encounter Date Diagnosis Assessment Notes [...] - Z01.89) Tobacco screening completed never smoker. [employer] Other 06-20-2023 History and physical note* Tova [...] 2023 TIME: 12:18 PM documented in this encounterProtestant Deaconess Hospital06-07-2023 Miscellaneous Notes* Telephone Encounter - Columba Jon - 03/27/2023 3:06 PM EDT Looks like patient was rescheduled for a sooner date for MRI * Telephone Encounter - Merlene Woodson - 03/27/2023 1:05 PM EDT LM for pt to call back and try to set up a sooner MRI. * Telephone Encounter - Alpa Carr RN - 03/27/2023 12:47 PM EDT Will see if Young schedule team can assist patient in getting [...] scheduled colonoscopy on 04/09/23. documented in this encounterProtestant Deaconess Hospital06-06-2023 Miscellaneous Notes* Telephone Encounter - Chelsie Ríos RN - 03/26/2023 1:55 PM EDT Returned call. Told him he can either call the office or send a My Chart message and I'd be happy to answer his questions. * Telephone Encounter - Bre Pruitt - 03/26/2023 1:42 PM EDT Patient called with questions about Colonoscopy and MRI would like to speak with someone. PH:[phone] documented in this encounterProtestant Deaconess Hospital06-06-2023 Miscellaneous Notes* Telephone Encounter - Denisha Duarte [...] Dr Norman's office given to pt. Denisha Duarte, RN documented in this encounterProtestant Deaconess Hospital05-31-2023 Miscellaneous Notes* Telephone Encounter - ROYCE Jaffe [...] the population without disease(benign polymorphism). Please see [email or web address] message for further discussion. Santiago Lema MS, [facility] [place] Licensed, Certified Genetic Counselor documented in this encounterProtestant Deaconess Hospital05-30-2023 NoteMer[facility] Center05-30-2023 History of Present illness Narrative* Minerva Anderson [...] muscle spasms. He was seen at the [facility] ER on 03/18/2023 for evaluation. Work-up including [...] wounds or petechiae. PATHOLOGY: 08/20/2022 Colonoscopic biopsy ([facility]) Adenocarcinoma of colon (mass at anal verge) Mismatch repair gene -normal expression RADIOLOGY/OTHER STUDIES: 01/22/2023 Lower extremity Doppler ([facility]) Extensive deep venous thrombosis of the left [...] related to the thorax. 10/01/2022 MRI abdomen ([facility]) No MRI evidence of liver lesion 09/25/2022 [...] No neoplastic hypermetabolic lesions 09/11/2022 MRI pelvis ([facility]) Low rectal neoplasm with suspected early invasion of the internal anal sphincter at the upper canal(MRI category T3b, N0). Few nonenlarged 2 to 3 mm mesorectal lymph nodes. No suspicious lymphadenopathy. 09/11/2022 CT chest, abdomen, pelvis ([facility]) Possible low-attenuation lesion right hepatic lobe [...] indefinitely. Minerva Anderson MD documented in this encounterProtestant Deaconess Hospital05-29-2023 Hospital Discharge instructions Patient Education 03/18/2023 13:40:26 [...] avoid intense exercise for several days. Take sbcs-grm-qzsysoa and prescription medicines only as told by [...] provider. Document Revised: 04/27/2022 Document Reviewed: 04/27/2022 [employer] Patient Education 2022 [employer]. 03/18/2023 13:40:26 Community-Acquired Pneumonia, Adult Community-Acquired Pneumonia, [...] Follow these instructions at home: Medicines Take aowr-vxg-duxulwo and prescription medicines only as told by [...] and water are not available, use hand paper counter. Contact a health care provider if you [...] provider. Document Revised: 07/19/2020 Document Reviewed: 07/19/2020 [employer] Patient Education 2022 [employer]. Follow Up Care 03/18/2023 10:25:52 With:Lorenzo OLSON Address: [address] [place], [place] [id number]- Business (1) When:03/21/2023 13:34:29 Comments:Return to the emergency room if your shortness of breath gets worse, your neck pain gets worse or any new symptoms. Be aware that both [place] and Flexeril can cause drowsiness. [facility]05-29-2023 Evaluation + Plan noteExtracted from: Title:ED Note Author:Corrina Rogers, Yuridia Pineda te:03/18/23 1. Pneumonia (J18.9: Pneumon ia, unspecified organism) 2. Neck muscle spasm (M62.838: Other muscle spasm) Ordered: acetaminophen-hydrocodone, 1 tab(s), Oral, q6hr as needed for pain, 10 tab(s), Refill(s) 0, [id number], 188, cm, 03/18/23 10:50:00 EDT, Height/Length Dosing, 111, kg, 03/18/23 10:50:00 EDT, Weight Dosing Orders: acetaminophen-oxycodone, 1 tab(s), Tab, Oral, Once, Stop date 03/18/23 11:55:00 EDT, STAT, Start date 03/18/23 11:55:00 EDT azithromycin, = 1 packet(s), Oral, As Directed, as directed on package labeling, X 5 day(s), # 6 tab(s), Refills(s) 0, [id number], 188, cm, 03/18/23 10:50:00 EDT, Height/Length Dosing, 111, kg, 03/18/23 10:50:00 EDT, Weight Dosing cyclobenzaprine, 10 mg = 1 tab(s), Oral, TID, PRN for spasm, # 20 tab(s), Refills(s) 0, [facility] #[id number], 188, cm, 03/18/23 10:50:00 EDT, Height/Length Dosing, [...] Tests Radiology* XR Abdomen 1 View 09/20/22 [facility] [facility]23 [facility]-2023 NoteMer[facility]05-24-2023 History of Present illness Narrative* G Saeed Vásquez MD - 03/13/2023 10:31 AM EDT Radiation Oncology - Follow Up Note PATIENT NAME: Mervat Damon PATIENT DIAGNOSIS: Adenocarcinoma of the lower rectum MRI staged [id number] RADIATION SUMMARY: DATES OF TREATMENT: 10/08/2022- 11/19/2022 [...] Dania Vásquez MD cc: Lorenzo Asim Olson [address] [place] [address] No referring provider defined for this encounter. documented in this encounterProtestant Deaconess Hospital05-16-2023 NoteHNO ID: [id number] Author: Emilia Olivas RN Service: ? Author Type: Registered Nurse Type: Progress Notes Filed: 03/05/2023 12:55 PM Note Text: HM back to tx room to give pt information on potassium rich diet. Emilia Olivas RNMercy Health Springfield Regional Medical Center05-16-2023 NoteMer[facility]05-16-2023 History of Present illness Narrative* Emilia Olivas RN - 03/05/2023 9:50 AM EDT back to tx room to give pt information on potassium rich diet. Emilia Olivas RN documented in this encounterProtestant Deaconess Hospital05-09-2023 Miscellaneous Notes* Telephone Encounter - Samantha Hi RP - 02/26/2023 12:19 PM EDT Approved for free Xarelto from [employer] through 10/20/23. Prescriptions are filled at their internal pharmacy [facility] phone [phone] documented in this encounterProtestant Deaconess Hospital05-02-2023 NoteMer[facility]05-02-2023 History of Present illness Narrative* Minerva Anderson [...] wounds or petechiae. PATHOLOGY: 08/20/2022 Colonoscopic biopsy ([facility]) Adenocarcinoma of colon (mass at anal verge) Mismatch repair gene -normal expression RADIOLOGY/OTHER STUDIES: 01/22/2023 Lower extremity Doppler ([facility]) Extensive deep venous thrombosis of the left [...] related to the thorax. 10/01/2022 MRI abdomen ([facility]) No MRI evidence of liver lesion 09/25/2022 [...] No neoplastic hypermetabolic lesions 09/11/2022 MRI pelvis ([facility]) Low rectal neoplasm with suspected early invasion of the internal anal sphincter at the upper canal(MRI category T3b, N0). Few nonenlarged 2 to 3 mm mesorectal lymph nodes. No suspicious lymphadenopathy. 09/11/2022 CT chest, abdomen, pelvis ([facility]) Possible low-attenuation lesion right hepatic lobe [...] indefinitely. Minerva Anderson MD documented in this encounterProtestant Deaconess Hospital04-27-2023 [facility]04-20-2023 NoteMer[facility]04-20-2023 Nurse Note* Alpa Carr RN - 02/07/2023 [...] Temperature: No Drains: No documented in this encounterProtestant Deaconess Hospital04-20-2023 History of Present illness Narrative* Deborah Norman MD - 02/07/2023 2:20 PM EDT COLORECTAL SURGERY February 06, 2023 Mervat Damon 72 year old This consult was requested by Dr. Krueger and my final recommendations will be communicated to the requesting health care provider by way of the shared medical record for internal providers or letter via the [employer] for external providers. Chief Complaint: [...] He had his surgical care established in [place]. Heis doing well with chemotherapy so far. [...] Digital rectal exam reveals indurated ulcer anterior Amplifier Mechanic present: Yes, Alpa Carr Anoscopy: The patient [...] Norman MD Colorectal Surgery documented in this encounterProtestant Deaconess Hospital04-18-2023 NoteMer[facility]04-17-2023 NoteMer[facility]04-17-2023 History of Present illness Narrative* Mert Krueger [...] mass. After that he saw, oncology in [place]. Plan was to start chemo and radiation [...] and internal hemorrhoids. He was evaluated at [facility] on 08/20/22 via flexible sigmoidoscopy demonstrating a [...] (L) 0.83 (L) 0.71 (L) 0.79 (L) Lane% % 8.7 9.5 9[address]2 [address] <0.87 k/uL 0.53 0.55 0.78 0.64 0.74 [...] and internal hemorrhoids. He was evaluated at [facility] on08/20/22 via flexible sigmoidoscopy demonstrating a friable, firm lesion encompassing ycnlmqckeovdb64-89% of the circumference of the anus right [...] this well Was seen by surgery at [place] but prefers to keep his care at [...] No follow-ups on file. documented in this encounterProtestant Deaconess Hospital04-06-2023 Miscellaneous Notes* Telephone Encounter - Denisha Duarte [...] 01/23/2023 10:52 AM EDT Signed. Andree Hollis APRN.BEADING INSTALLER * Telephone Encounter - Denisha Duarte RN - 01/23/2023 9:42 AM EDT Call placed to Dr Andesron to clarify anticoagulant. Per Ramya Colin script [...] he see Dr. Kebede who is at [facility] Jennifer/Velia, and hopefully easier to get into thanthe [...] If so, pt would like referred to [facility] and asks who you recommend he [...] mg BID. Script will be sent to [facility] pharmacy. Pt present in office at time of call. Pt notified of 's recommendations and verbalizes understanding. 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 Denisha Duarte RN documented in this encounterProtestant Deaconess Hospital04-04-2023 Miscellaneous Notes* Telephone Encounter - Denisha Duarte RN - 01/22/2023 1:35 PM EDT Voicemail message received from [facility] Central Scheduling. States that they are still waiting for ouroffice to fax the pt's US order. Asks that we send it to [phone]. Order faxed to the above number as requested. Denisha Duarte RN documented in this encounterProtestant Deaconess Hospital04-04-2023 NoteMer[facility]04-04-2023 NoteMer[facility]04-04-2023 NoteMer[facility]04-04-2023 History of Present illness Narrative* Hoa Owen, RD - 01/22/2023 10:24 AM EDT Oncology [...] Owen MS, RDN, LD documented in this encounterProtestant Deaconess Hospital04-04-2023 History of Present illness Narrative* Ashley Godinez RN - 01/22/2023 9:29 AM EDT Patient to get an US of LLE edema per Andree. Would like it a [facility]. helpdesk analyst notified of another appointment that patient has today at [facility] there. Ashley Godinez RN documented in this encounterProtestant Deaconess Hospital04-04-2023 History of Present illness Narrative* Andree Hollis APRN.BEADING INSTALLER - 01/22/2023 8:49 AM EDT PATIENT NAME: [...] wounds or petechiae. PATHOLOGY: 08/20/2022 Colonoscopic biopsy ([facility]) Adenocarcinoma of colon (mass at anal verge) [...] related to the thorax. 10/01/2022 MRI abdomen ([facility]) No MRI evidence of liver lesion 09/25/2022 [...] No neoplastic hypermetabolic lesions 09/11/2022 MRI pelvis ([facility]) Low rectal neoplasm with suspected early invasion of the internal anal sphincter at the upper canal(MRI category T3b, N0). Few nonenlarged 2 to 3 mm mesorectal lymph nodes. No suspicious lymphadenopathy. 09/11/2022 CT chest, abdomen, pelvis ([facility]) Possible low-attenuation lesion right hepatic lobe [...] to colorectal surgery (Dr. Thalia Troy in [place]) for restaging to include pelvic MRI and [...] ultrasound to rule out DVT. Andree Hollis APRN.BEADING INSTALLER CC: Dr. Thalia Troy ([facility] Colorectal Surgery) I spent a total of 30 minutes on the date of the service which included preparing to see the patient, prox-us-psds patient care, completing clinical documentation, obtaining and/or reviewing separately obtained history, performing a medically appropriate examination, counseling and educating the pat ient/family/caregiver, ordering medications, tests, or procedures, independently interpreting results (not separately reported), and communicating results to the patient/family/caregiver. documented in this encounterProtestant Deaconess Hospital03-31-2023 Miscellaneous Notes* Telephone Encounter - Renata Amin - 01/18/2023 4:14 PM EDT Patient has an OTV appointment on 01/22. Please place lab orders. Renata Amin documented in this encounterProtestant Deaconess Hospital03-27-2023 Miscellaneous Notes* Telephone Encounter - Denisha Duarte RN - 01/14/2023 12:17 PM EDT Pt notified and verbalizes understanding. 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 However, a flex sigmoidoscopy would be recommended to make sure nothing else serious going on. Best if he could see his [place] colorectal surgeon. If not able to get in to see her the local field service technician poultry can perform a flex sig. Thanks, B [...] advise? Denisha Duarte RN documented in this encounterProtestant Deaconess Hospital03-26-2023 NoteEchocardiology Procedure Exam Date/Time Accession # Ordering Echo Transthoracic 01/10/2023 15:02 EDT [id number] Cyndee SANCHEZ CNP Complete CPT code 56738 30213 Reason for Exam (Echo Transthoracic Complete) I42.8;Cardiomyopathy Report Version: 1 Study ID: [id number] [facility] [address] [place] [address] Adult Echocardiogram Report Name: MERVAT DAMON Study Date: 01/10/2023, 2: 20 PM Patient Location: [facility] : 1950 (MM/DD/YYYY) Gender: Male Age: 72 Years Height: 187.96 cm BP: 93 / 62 mmHg Weight: 111.586 kg HR: 71 bpm BSA: 2.37 m? Ordering Physician: Cyndee SANCHEZ Referring Physician: Cyndee SANCHEZ Performed By: Nida Cerda RDMS, RVT Reason For Study: Cardiomyopathy History: Cardiomyopathy [...] Signed by: Santiago Kong MD Transcribed by: [facility] Technologist: [facility]03-21-2023 Note [facility]03-21-2023 History of Present illness Narrative* Hoa Owen, [...] no significant changes but weight fluctuations noted Menan Body Weight: 79.9kg Estimated kilocalorie needs: 9990-0110 kilocalories determined by 25-30 kcal/kg Estimated protein needs: 80-96 grams determined by 1.0-1.2 g/kg Menan weight Estimated fluid needs: ~5419-0479 milliliters based on 1 mL per kcal [...] ONCE Minerva Anderson MD 145.8 mg at 01/08/23 0928 leucovorin 972 mg in D5W 106.6 mL 400 mg/m2 (Treatment Plan Recorded) INTRAVENOUS ONCE Minerva Anderson MD 972 mg at 01/08/23 0928 fluorouracil 729 mg injection (ADRUCIL) 300 mg/m2 [...] Owen MS, RDN, LD documented in this encounterProtestant Deaconess Hospital03-21-2023 NoteMer[facility]03-21-2023 Nurse Note* Lisseth Chávez - 01/08/2023 8:23 AM EDT Pt states that he had a lot of nausea after his last treatment and felt sick for 2 days after despite using his antiemetics. Lisseth Chávez' documented in this encounterProtestant Deaconess Hospital03-21-2023 History of Present illness Narrative* Minerva Anderson [...] wounds or petechiae. PATHOLOGY: 08/20/2022 Colonoscopic biopsy ([facility]) Adenocarcinoma of colon (mass at anal verge) [...] related to the thorax. 10/01/2022 MRI abdomen ([facility]) No MRI evidence of liver lesion 09/25/2022 [...] No neoplastic hypermetabolic lesions 09/11/2022 MRI pelvis ([facility]) Low rectal neoplasm with suspected early invasion of the internal anal sphincter at the upper canal(MRI category T3b, N0). Few nonenlarged 2 to 3 mm mesorectal lymph nodes. No suspicious lymphadenopathy. 09/11/2022 CT chest, abdomen, pelvis ([facility]) Possible low-attenuation lesion right hepatic lobe [...] to colorectal surgery (Dr. Thalia Troy in [place]) for restaging to include pelvic MRI and [...] Minerva Anderson MD CC: Dr. Thalia Troy ([facility] Colorectal Surgery) documented in this encounterProtestant Deaconess Hospital03-10-2023 Miscellaneous Notes* Telephone Encounter - Lucy Goetz [...] protocol. Lucy Goetz RN documented in this encounterProtestant Deaconess Hospital03-07-2023 NoteMer[facility]03-02-2023 History of Present illness Narrative* Denisha Duarte RN - 12/20/2022 2:55 PM EST Senior Linux Administrator Pre Chemo Patient identified by name and date of . YES Confirmed date and time for chemotherapy ? YES Other appointments (labs, imaging) discussed? YES Discussed where to park (agricultural economics teacher), charge for parking NO Discussed where to [...] Ivana. Denisha Duarte RN documented in this encounterProtestant Deaconess Hospital03-02-2023 NoteHNO ID: [id number] Author: Hang Rhodes RN Service: ? Author Type: Registered Nurse Type: Nursing Progress Note Filed: 12/20/2022 11:22 AM Note Text: D/c instructions provided along with anesthesia and MP care paperwork.[facility] [id number] NoteHNO ID: [id number] Author: Mark Valladares MD Service: Interventional Radiology Author Type: Physician Type: Procedures Filed: 12/20/2022 10:32 AM Note Text: RADIOLOGY BRIEF PROCEDURE NOTE Procedure Date: December 20, 2022 Incision/Procedure Start Time: 10:04 AM Incision Close/Procedure End Time: 10:28 AM SURGEON(S)/PROCEDURALIST(S) AND TRAFFIC RECORDER(S): Mark Valladares MD PROCEDURE: SL Port Placement PRE-PROCEDURE DIAGNOSIS: Rectal Cancer POST-PROCEDURE DIAGNOSIS: Same ESTIMATED BLOOD LOSS: 0 ml SPECIMENS: None COMPLICATIONS: None FINDINGS: Placement of RIJ SL Port with catheter tip at superior cavoatrial junction. PLAN: Port is ready for use. SIGNATURE: Mark Valladares MD PATIENT NAME: Mervat Damon DATE: December 20, 2022 TIME: 10:31 AM PAGER/CONTACT #:[facility] [phone] Miscellaneous Notes* Telephone Encounter - Rashmi Lerner - 12/19/2022 1:28 PM EST Patient has been scheduled. Rashmi Lerner * Telephone Encounter - Rashmi Lerner - 12/17/2022 4:02 PM EST Call placed to [facility] for port placement. Left message on voicemail. Rashmi Lerner documented in this encounterProtestant Deaconess Hospital03-01-2023 Miscellaneous Notes* Telephone Encounter - Milton Ward RN - 12/19/2022 10:16 AM EST You are scheduled for a Mediport placement, On 12/20/2022. You are to arrive at 0900 am and [facility]: [facility]: Enter through [facility] entrance. Proceed [...] if they are not done at a [facility] facility. . [employer]/Transportation: How will you be arriving for your procedure? Private car. You will need a responsible adult to accompany you to and from the procedure. Your otr driver is required to stay with you until you are taken into the procedure room. Call for any questions [phone] documented in this encounterProtestant Deaconess Hospital02-28-2023 Miscellaneous Notes* Telephone Encounter - Orin Ríos - 12/18/2022 8:36 AM EST Patient coming in on Saturday12/25/22 for follow up treatment. Please add lab orders. Thanks. Orin Ríos MA documented in this encounterProtestant Deaconess Hospital02-27-2023 History of Present illness Narrative* Minerva [...] wounds or petechiae. PATHOLOGY: 08/20/2022 Colonoscopic biopsy ([facility]) Adenocarcinoma of colon (mass at anal verge) [...] related to the thorax. 10/01/2022 MRI abdomen ([facility]) No MRI evidence of liver lesion 09/25/2022 [...] No neoplastic hypermetabolic lesions 09/11/2022 MRI pelvis ([facility]) Low rectal neoplasm with suspected early invasion of the internal anal sphincter at the upper canal(MRI category T3b, N0). Few nonenlarged 2 to 3 mm mesorectal lymph nodes. No suspicious lymphadenopathy. 09/11/2022 CT chest, abdomen, pelvis ([facility]) Possible low-attenuation lesion right hepatic lobe [...] to colorectal surgery (Dr. Thalia Troy in [place]) for restaging to include pelvic MRI and [...] Minerva Anderson MD CC: Dr. Thalia Troy ([facility] Colorectal Surgery) documented in this encounterProtestant Deaconess Hospital01-31-2023 Miscellaneous Notes* Telephone Encounter - Katerina [...] kidneys . RACIEL Siddiqui documented in this encounterProtestant Deaconess Hospital01-30-2023 History of Present illness Narrative* G Saeed Vásquez MD - 11/19/2022 2:38 PM EST Radiation Oncology - On Treatment Review (OTR) Note PATIENT NAME: Mervat Damon PATIENT DIAGNOSIS: Adenocarcinoma of the lower rectum MRI staged [id number] COURSE: definitive and concurrent chemotherapy Current dose: [...] weeks. Dania Vásquez MD documented in this encounterProtestant Deaconess Hospital01-30-2023 History of Present illness Narrative* Minerva Anderson [...] wounds or petechiae. PATHOLOGY: 08/20/2022 Colonoscopic biopsy ([facility]) Adenocarcinoma of colon (mass at anal verge) Mismatch repair gene -normal expression RADIOLOGY/OTHER STUDIES: 10/01/2022 MRI abdomen ([facility]) No MRI evidence of liver lesion 09/25/2022 [...] No neoplastic hypermetabolic lesions 09/11/2022 MRI pelvis ([facility]) Low rectal neoplasm with suspected early invasion of the internal anal sphincter at the upper canal(MRI category T3b, N0). Few nonenlarged 2 to 3 mm mesorectal lymph nodes. No suspicious lymphadenopathy. 09/11/2022 CT chest, abdomen, pelvis ([facility]) Possible low-attenuation lesion right hepatic lobe [...] to colorectal surgery (Dr. Thalia Troy in [place]) to discuss surgical options. 2. Rheumatoid arthritis [...] Minerva Anderson MD CC: Dr. Thalia Troy ([facility] Colorectal Surgery) documented in this encounterProtestant Deaconess Hospital01-30-2023 History of Present illness Narrative* G Saeed Vásquez MD - 11/19/2022 12:00 AM EST [facility] Radiation Oncology Department RADIATION ONCOLOGY - COMPLETION NOTE PATIENT: MERVAT DAMON: 1950 DATES OF TREATMENT: 10/08/2022- 11/19/2022 DIAGNOSIS: Adenocarcinoma of the lower rectum MRI staged [id number] AREA TREATED: rectum DELIVERED DOSE: Area: pelvis [...] cc: Dr. Lorenzo Anderson documented in this encounterProtestant Deaconess Hospital01-26-2023 History of Present illness Narrative* Dania Vásquez MD - 11/15/2022 8:34 AM EST [employer] films reviewed. documented in this encounterProtestant Deaconess Hospital01-23-2023 History of Present illness Narrative* Dania Vásquez MD - 11/12/2022 2:01 PM EST Radiation Oncology - On Treatment Review (OTR) Note PATIENT NAME: Mervat Damon PATIENT DIAGNOSIS: Adenocarcinoma of the lower rectum MRI staged [id number] COURSE: definitive and concurrent chemotherapy Current dose: [...] outlined. Dania Vásquez MD documented in this encounterProtestant Deaconess Hospital01-19-2023 Nurse Note* Re Alvarez LPN - 11/08/2022 [...] assist. Re Alvarez LPN documented in this encounterProtestant Deaconess Hospital01-18-2023 Miscellaneous Notes* Telephone Encounter - Re Alvarez LPN - 11/07/2022 2:13 PM EST Standing weekly cbc order pending your approval. Please indicate how often you want CBC drawn. Re Alvarez LPN documented in this encounterProtestant Deaconess Hospital01-18-2023 Miscellaneous Notes* Telephone Encounter - Andree Hollis APRN.ARACELY - 11/07/2022 1:49 PM EST The following approved medication requests have been transmitted electronically. Requested Prescriptions Signed Prescriptions Disp Refills oxyCODONE-acetaminophen (PERCOCET) 5-325 mg tablet 100 tablet 0 Sig: Take 1 tablet by mouth every 6 hours as needed for pain. Authorizing Provider: ANDREE HOLLIS APRN.BEADING INSTALLER * Telephone Encounter - Re Alvarez LPN - 11/07/2022 1:44 PM EST Michael is here for radiation therapy with c/o increasing rectal pain. He is currently taking hydrocodone-apap 5/325mg 1 tablet three times daily with little relief. He states he and Andree discussed possibly changing pain medication if needed. He would like any prescriptions sent to [facility] pharmacy. Re Alvarez LPN documented in this encounterProtestant Deaconess Hospital01-16-2023 History of Present illness Narrative* Dania Vásquez MD - 11/05/2022 10:04 AM EST Radiation Oncology - On Treatment Review (OTR) Note PATIENT NAME: Mervat Damon PATIENT DIAGNOSIS: Adenocarcinoma of the lower rectum MRI staged [id number] COURSE: definitive and concurrent chemotherapy Current dose: [...] outlined. Dania Vásquez MD documented in this encounterProtestant Deaconess Hospital01-09-2023 History of Present illness Narrative* Andree Hollis APRN.BEADING INSTALLER - 10/29/2022 3:32 PM EST PATIENT NAME: [...] wounds or petechiae. PATHOLOGY: 08/20/2022 Colonoscopic biopsy ([facility]) Adenocarcinoma of colon (mass at anal verge) Mismatch repair gene -normal expression RADIOLOGY/OTHER STUDIES: 10/01/2022 MRI abdomen ([facility]) No MRI evidence of liver lesion 09/25/2022 [...] No neoplastic hypermetabolic lesions 09/11/2022 MRI pelvis ([facility]) Low rectal neoplasm with suspected early invasion of the internal anal sphincter at the upper canal(MRI category T3b, N0). Few nonenlarged 2 to 3 mm mesorectal lymph nodes. No suspicious lymphadenopathy. 09/11/2022 CT chest, abdomen, pelvis ([facility]) Possible low-attenuation lesion right hepatic lobe [...] evidence of ongoing thromboembolic disease. Andree Hollis APRN.BEADING INSTALLER CC: Dr. Thalia Troy ([facility] Colorectal Surgery) I spent a total of 30 minutes on the date of the service which included preparing to see the patient, [id number] patient care, completing clinical documentation, obtaining and/or reviewing separately obtained history, performing a medically appropriate examination, counseling and educating the pat ient/family/caregiver, ordering medications, tests, or procedures, independently interpreting results (not separately reported), and communicating results to the patient/family/caregiver. documented in this encounterProtestant Deaconess Hospital01-09-2023 History of Present illness Narrative* Dennis Cheung MD - 10/29/2022 2:00 PM EST Radiation Oncology - On Treatment Review (OTR) Note PATIENT NAME: Mervat Damon PATIENT DIAGNOSIS: Adenocarcinoma of the lower rectum MRI staged [id number] COURSE: definitive and concurrent chemotherapy Current dose: [...] planned. Dennis Cheung MD documented in this encounterProtestant Deaconess Hospital01-04-2023 Hospital Discharge instructions Patient Education 10/24/2022 13:18:32 [...] Follow these instructions at home: Medicines Take [id number]-[id number] and prescription medicines only as told by [...] 10/04/2001 Document Revised: 09/19/2018 Document Reviewed: 10/23/2017 [employer] Patient Education 2020 [employer]. Follow Up Care 09/28/2021 14:33:01 With:ASHLEY TRINIDAD PA-C, URL Address: [address] [place] [address] When:3 months [facility] 01-03-2023 History of Present illness Narrative* Oliva Brewer RPh - 10/23/2022 2:31 PM EST Opened in error. documented in this encounterProtestant Deaconess Hospital01-03-2023 History of Present illness Narrative* Dania Vásquez MD - 10/23/2022 8:03 AM EST Radiation Oncology - On Treatment Review (OTR) Note PATIENT NAME: Mervat Damon PATIENT DIAGNOSIS: Adenocarcinoma of the lower rectum MRI staged [id number] COURSE: definitive and concurrent chemotherapy Current dose: [...] outlined. Dania Vásquez MD documented in this encounterProtestant Deaconess Hospital12-30-2022 History of Present illness Narrative* Hoa Owen [...] Need for Follow up: prn Referred/Supervised by: Yesi/Yesi MNT Billing Type: Re-assess/15 min 1 unit Billed Time: 15 minutes Signed by: Hoa Owen, MS, RDN, LD documented in this encounterProtestant Deaconess Hospital12-27-2022 History of Present illness Narrative* Dania Vásquez MD - 10/16/2022 1:16 PM EST Radiation Oncology - On Treatment Review (OTR) Note PATIENT NAME: Mervat Damon PATIENT DIAGNOSIS: Adenocarcinoma of the lower rectum MRI staged [id number] COURSE: definitive and concurrent chemotherapy Current dose: [...] outlined. Dania Vásquez MD documented in this encounterProtestant Deaconess Hospital12-22-2022 History of Present illness Narrative* Andree Hollis APRN.BEADING INSTALLER - 10/11/2022 2:55 PM EST PATIENT NAME: [...] wounds or petechiae. PATHOLOGY: 08/20/2022 Colonoscopic biopsy ([facility]) Adenocarcinoma of colon (mass at anal verge) Mismatch repair gene -normal expression RADIOLOGY/OTHER STUDIES: 10/01/2022 MRI abdomen ([facility]) No MRI evidence of liver lesion 09/25/2022 [...] No neoplastic hypermetabolic lesions 09/11/2022 MRI pelvis ([facility]) Low rectal neoplasm with suspected early invasion of the internal anal sphincter at the upper canal(MRI category T3b, N0). Few nonenlarged 2 to 3 mm mesorectal lymph nodes. No suspicious lymphadenopathy. 09/11/2022 CT chest, abdomen, pelvis ([facility]) Possible low-attenuation lesion right hepatic lobe [...] Andree Hollis APRN.CNP CC: Dr. Thalia Troy ([facility] Colorectal Surgery) I spent a total of 30 minutes on the date of the service which included preparing to see the patient, uazi-[id number]-kvee patient care, completing clinical documentation, obtaining and/or reviewing separately obtained history, performing a medically appropriate examination, counseling and educating the pat ient/family/caregiver, ordering medications, tests, or procedures, independently interpreting results (not separately reported), and communicating results to the patient/family/caregiver. documented in this encounterProtestant Deaconess Hospital12-22-2022 Miscellaneous Notes* Telephone Encounter - Denisha Sessler, RN - 10/11/2022 10:00 AM EST ORAL [...] comply. 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 Staffing BLAST SETTER: Aparna Burgos APRN.BLAST SETTER Performed by: MARIA G Indications and Patient Condition Indications for airway management: anesthesia Preoxygenated: yes anesthesia circuit Patient position: sniffing Method: asleep Difficult Mask: No Final Airway Details Final airway type: supraglottic airway Number of attempts at approach: 1 Final Supraglottic Airway: IGEL Size 5 Seal Adequate: yes Airway not difficult SIGNATURE: Aparna Burgos APRN.BLAST SETTER PATIENT NAME: Mervat Damon DATE: October 10, 2022 TIME: 1:32 PM CSN: [id number] [facility] Patient Name: Mervat Damon Procedure Date: 10/10/2022 12:50 PM Date of : 1950 Admit Type: Outpatient Age: 72 Room: [facility] Gender: Male Attending MD: Hang Maier [...] Procedure Start: 1:29:22 PM Procedure End: 1:58:11 [facility]12-20-2022 Miscellaneous Notes* Telephone Encounter - Vito Del Castillo - 10/09/2022 11:56 AM EST Spoke with the patient confirmed noon arrival time for 1 pm appointment at [facility] Vito Del Castillo documented in this encounterProtestant Deaconess Hospital12-19-2022 History and physical note * Hang Maier MD - 10/08/2022 2:46 PM EST VIRTUAL VISIT PROGRESS NOTE This is a virtual visit using Sold video visit. It required patient-provider interaction for [...] which included preparing to see the patient, [id number] patient care, completing clinical documentation, obtaining and/or reviewing separately obtained history, performing a medically appropriate examination, counseling and educating the pat ient/family/caregiver, ordering medications, tests, or procedures, communicating with other HCPs (not separately reported), independently interpreting results (not separately reported), communicatingresults to the patient/family/caregiver, and care coordination (not separately reported) Hang Maier MD October 08, 2022 3:54 PM documented in this encounterProtestant Deaconess Hospital12-19-2022 History of Present illness Narrative* Dania Vásquez MD - 10/08/2022 11:56 AM EST Radiation Oncology - On Treatment Review (OTR) Note PATIENT NAME: Mervat Damon PATIENT DIAGNOSIS: Adenocarcinoma of the lower rectum MRI staged [id number] COURSE: definitive and concurrent chemotherapy Current dose: [...] prescribed. Dania Vásquez MD documented in this encounterProtestant Deaconess Hospital12-19-2022 Nurse Note* Orin Ríos - 10/08/2022 11:23 AM EST EKG performed as ordered. Electronically sent to [facility]. Placed paper copy in scan folder. Orin Ríos MA documented in this encounterProtestant Deaconess Hospital12-16-2022 NoteHNO ID: [id number] Author: Collette Cespedes Service: ? Author Type: ? Type: Progress Notes Filed: 2022 10:54 AM Note Text: Patient called reviewed: Please schedule patient for the following: Pre-Procedure visit required: Yes-10/08 Physician Performing Bronchoscopy: Dr. Oconnor Needs Labs: No Needs EKG: Yes-10/08- scheduledCutler Army Community [id number] Miscellaneous Notes* Telephone Encounter - Nasrin Tamayo [...] I assume he could get done at [facility] for convenience. [facility] [...] you! Denisha Duarte RN documented in this encounterProtestant Deaconess Hospital12-16-2022 NoteHNO ID: [id number] Author: Hang Maier MD Service: ? Author [...] by: CHUCHO Maier MD 2022 9:09 [facility]12-16-2022 History of Present illness Narrative* Collette [...] MD 2022 9:09 AM documented in this encounterProtestant Deaconess Hospital12-16-2022 Miscellaneous Notes* Telephone Encounter - Denisha Duarte RN - 2022 9:27 AM EST Pt calls to ask if his Xeloda is ready for supervisor picking crew. States that he has not heard from pharmacy. Informed pt that he can supervisor picking crew his script today. Pharmacy hours reviewed. Apologized for missed notification. Pt verbalizes understanding and will be in today. Denisha Duarte RN documented in this encounterProtestant Deaconess Hospital12-13-2022 Miscellaneous Notes* Telephone Encounter - Denisha Duarte RN - 10/02/2022 4:28 PM EST Patient started/will start taking Capecitabine on 10/08/22. Denisha Duarte RN documented in this encounterProtestant Deaconess Hospital12-13-2022 History of Present illness Narrative* Denisha Duarte [...] minutes Denisha Duarte RN documented in this encounterProtestant Deaconess Hospital12-13-2022 History of Present illness Narrative* Minerva Anderson [...] swelling, and atrophy. PATHOLOGY: 08/20/2022 Colonoscopic biopsy ([facility]) Adenocarcinoma of colon (mass at anal verge) Mismatch repair gene -normal expression RADIOLOGY/OTHER STUDIES: 10/01/2022 MRI abdomen ([facility]) No MRI evidence of liver lesion 09/25/2022 [...] No neoplastic hypermetabolic lesions 09/11/2022 MRI pelvis ([facility]) Low rectal neoplasm with suspected early invasion of the internal anal sphincter at the upper canal(MRI category T3b, N0). Few nonenlarged 2 to 3 mm mesorectal lymph nodes. No suspicious lymphadenopathy. 09/11/2022 CT chest, abdomen, pelvis ([facility]) Possible low-attenuation lesion right hepatic lobe [...] Minerva Anderson MD CC: Dr. Thalia Troy ([facility] Colorectal Surgery) documented in this encounterProtestant Deaconess Hospital12-12-2022 Miscellaneous Notes* Telephone Encounter - Denisha Duarte RN - 10/01/2022 5:19 PM EST Pt will be starting chemo/xrt on 10/08. Scripts for antiemetics pended. Denisha Duarte RN documented in this encounterProtestant Deaconess Hospital12-09-2022 Miscellaneous Notes* Telephone Encounter - Re Alvarez [...] Olson. Re Alvarez LPN documented in this encounterProtestant Deaconess Hospital12-07-2022 Miscellaneous Notes* Telephone Encounter - DAI Carrington [...] as appropriate. DARYA Carrington documented in this encounterProtestant Deaconess Hospital12-07-2022 Miscellaneous Notes* Telephone Encounter - Re Alvarez LPN - 09/26/2022 9:11 AM EST I notified Michael of his rescheduled new start for 10/08/22 at 12:45. He states he has a MRI 10/01/22 and I reminded him of his follow up with Dr. Anderson 10/02/22. He denies questions at this time. Re Alvarez LPN documented in this encounterProtestant Deaconess Hospital12-06-2022 Miscellaneous Notes* Telephone Encounter - Denisha Duarte RN - 09/25/2022 1:57 PM EST Update: Pt's XRT to start on 10/08. MRI scheduled @ [facility] on 10/01. Pt [...] week? Denisha Duarte RN documented in this encounterProtestant Deaconess Hospital12-06-2022 History of Present illness Narrative* Hoa Owen [...] (249 lb 12.8 oz). Resting Metabolic Rate: 1960 Weight Change: no changes reported, weight stable per patient Menan Body Weight: 79.9kg Estimated kilocalorie needs: 8100-8709 kilocalories determined by 25-30 kcal/kg Estimated protein needs: 80-96 grams determined by 1.0-1.2 g/kg Menan weight Estimated fluid needs: ~4776-2146 milliliters based on 1 mL per kcal [...] Owen MS, RDN, LD documented in this encounterProtestant Deaconess Hospital12-05-2022 Miscellaneous Notes* Telephone Encounter - Lucina Becerra [...] scan is scheduled for 09-25-22 MRI at [facility] not until 10-11-22. Just want to confirm that you want to see the patient back the week of 10-01. Thank you for your help. documented in this encounterProtestant Deaconess Hospital12-05-2022 History of Present illness Narrative* G Saeed Vásquez MD - 09/24/2022 12:00 AM EST MERVAT DAMON [id number] 09/24/2022 [facility] Department of Radiation Oncology Treatment Planning [...] Vásquez M.D. 0:18 AM documented in this encounterProtestant Deaconess Hospital12-01-2022 Nurse Note* Sonam Horowitz RN - 09/20/2022 8:53 AM EST Radiation Therapy - Patient Education Note PATIENT NAME: Mervat Damon PATIENT September 20, 2022 [facility] FACILITY/LOCATION: [facility] READINESS TO LEARN Cognitive Ability: [...] by: Sonam Horowitz RN documented in this encounterProtestant Deaconess Hospital12-01-2022 History of Present illness Narrative* G Saeed Vásquez MD - 09/20/2022 7:46 AM EST Radiation Oncology - New Patient/Consult Note PATIENT NAME: Mervat Damon PATIENT REQUESTING PROVIDER: .Dr. Anderson DIAGNOSIS: Rectal cancer ,adenocarcinoma of the lower rectum MRI staged [id number] HPI: 71 year old male who presents [...] 30% circumferential involvement. Patient was seen by [facility] colorectal surgery, Dr. Troy. He underwent [...] ,adenocarcinoma of the lower rectum MRI staged [id number] Patient is still undergoing staging. He has [...] Vásquez MD cc: Lorenzo Olson [address] [facility] [address] [place] [address] Minerva Anderson (Micaela) [address] [place] [address] [place] [id number] documented in this encounterProtestant Deaconess Hospital11-29-2022 Miscellaneous Notes* Telephone Encounter - Lucy Hampton Sec - 09/18/2022 12:[address] Cortes from [facility] called regarding patient please call at your convience thanks [phone] documented in this encounterProtestant Deaconess Hospital11-28-2022 History of Present illness Narrative* Minerva Anderson [...] confirmed adenocarcinoma. The patient was referred to [facility] colorectal surgery (Dr. Troy) for further [...] colorectal cancer. 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 MEDICATIONS: Current Outpatient Medications Medication Sig ELIQUIS [...] swelling, and atrophy. PATHOLOGY: 08/20/2022 Colonoscopic biopsy ([facility]) Adenocarcinoma of colon (mass at anal verge) Mismatch repair gene -normal expression RADIOLOGY/OTHER STUDIES: 09/11/2022 MRI pelvis ([facility]) Low rectal neoplasm with suspected early invasion of the internal anal sphincter at the upper canal(MRI category T3b, N0). Few nonenlarged 2 to 3 mm mesorectal lymph nodes. No suspicious lymphadenopathy. 09/11/2022 CT chest, abdomen, pelvis ([facility]) Possible low-attenuation lesion right hepatic lobe [...] Minerva Anderson MD CC: Dr. Mervat Slaughter ([facility] Surgery); Dr. Thalia Troy ([facility] Colorectal Surgery) documented in this encounterProtestant Deaconess Hospital11-18-2022 Miscellaneous Notes* Telephone Encounter - Toshia Dailey Chitra - 09/07/2022 12:47 PM EST Patient called back & is scheduled on 09/17/2022@2:30 pm for [facility]. Toshia Buenrostro * Telephone Encounter - Toshia Dailey Chitra - 09/07/2022 9:51 AM EST Lvm for patient to call back to schedule with Dr Anderson. Schedule out a couple of days after MRI and CT. Toshia Asim Chitra * Telephone Encounter - Lauren Thurman RN - 09/07/2022 9:41 AM EST Pt called and is scheduled for CT scan and MRI Saturday09/11/22 at 11:30 am at [facility]. PSS: Please call and schedule pt for follow up with Dr. Anderson. Please give it a couple days between CT and MRI so we have reports back from [place]. Thanks you! Lauren Murrell RN * Telephone [...] path reports and baseline CT scans. Thanks, RACIEL * Telephone Encounter - Minal Corey RN - 09/06/2022 11:54 AM EST Pt's friend Alida Pereyra called in to ask if [facility] would see pt. I called and spoke with the pt andhe was recently diagnosed with adenocarcinoma of rectum at [facility], by Dr Thalia Troy. Pt has an [...] you, Minal Corey RN documented in this encounterProtestant Deaconess Hospital11-16-2022 NoteSubjective Patient ID: Mervat Damon is a [...] Referral Reason: Specialty Services Required Referral Location: [facility] Requested Specialty: Oncology Number of Visits Requested: 1 Will get CEA today and will have MRI and CT scans soon. Once staging is complete we will discuss plan. No results found for this or any previous visit (from the past 36 hour(s)). No follow-ups on file.[facility]11-02-2022 Note Attestation signed by Thalia Troy MD [...] and internal hemorrhoids. He was evaluated at [facility] on 08/20/22 via flexible sigmoidoscopy demonstrating a [...] the past 36 hour(s)). No follow-ups on file.[facility]10-31-2022 Evaluation + Plan noteExtracted from: Title:Post-anesthesia - General Author:Jose Sevilla DO Date:08/20/22 Plan Transfer/ Discharge: Condition stable. Extracted from: Title:Pre-anesthesia - Endoscopy Author:Jose Birmingham Jr., DO Date:08/20/22 Plan [place] [employer] Anesthesiologists (ASA) physical status classification: Class III. Anesthetic Preoperative Plan Anesthesia: General. . Anesthetic plan, risks, benefits, and alternatives discussed with the patient and/or family. Patient verbalized understanding. Future Appointments Appointment Date:09/27/2022 01:00:00 PM Scheduled Provider:ASHLEY TRINIDAD PA-C Location:[facility] Appointment Type:URO Office Visit Appointment Date:10/03/2022 01:15:00 PM Scheduled Provider:Santiago Kong MD [facility] Type:Cardiology Follow Up (FT) Future Scheduled Tests Laboratory* PSA Total 09/28/21 Radiology* XR Abdomen 1 View 09/20/22 [facility]10-25-2022 Hospital Discharge instructions Follow Up Care 08/14/2022 09:27:21 With:Mervat SLAUGHTER Address: [address] [place] [address] [address] [phone] Business (1) When:3 to 5 days [facility]08-11-2022 Hospital Discharge instructions Patient Education 05/31/2022 [...] frozen fruits, and frozen vegetables. Avoid buying aubom-ol-zar foods, such as pre-cut fruits and vegetables and pre-made salads. If possible, shop around to discover where you can find the best prices. Consider other retailers such as [employer] stores, larger wholesale stores, local fruit and vegetable [employer], and [employer] markets. Do not shop when you are [...] 06/10/2015 Document Revised: 10/08/2018 Document Reviewed: 10/08/2018 [employer] Patient Education 2020 [employer] 05/31/2022 13:03:45 BMI for Adults BMI [...] height. This can be done either in E[place]ad[place] (U.[place] or metric measurements. Note that charts are available to help you find your BMI quickly and easily without having to do these calculations yourself. To calculate your BMI in E[place] ([place] measurements, your health care provider will: [...] medical problems. BMI can be measured using Ecuadorean measurements or metric measurements. To interpret your [...] 06/18/2005 Document Revised: 09/19/2018 Document Reviewed: 08/20/2018 [employer] Patient Education 2020 [employer] 05/31/2022 13:03:43 Dizziness Dizziness Dizziness is [...] balance is fine. If you need to clinical services specialist one place for a long time, move [...] Watch your dizziness for any changes. Take bmne-fwu-hbpjjdx and prescription medicines only as told by [...] 04/02/2002 Document Revised: 10/10/2018 Document Reviewed: 11/09/2017 [employer] Patient Education 2020 [employer]. 05/31/2022 13:03:39 Hypotension Hypotension As your heart [...] standing up suddenly after eating. Medicines Take frab-bdy-yfhzzip and prescription medicines only as told by [...] 10/07/2006 Document Revised: 04/02/2019 Document Reviewed: 04/02/2019 [employer] Patient Education 2020 [employer] Follow Up Care 05/30/2022 10:32:48 With:ALEJANDRA JESSICA VALERIE Des Address: [address] [place] [address] When:7 to 10 days only if needed [facility] [place] 11-26-2021 Hospital Discharge instructions Follow Up Care 09/15/2021 11:43:54 With:Santiago Kong MD Address: When:6 months Comments:Call for sooner apt with new/worsening symptoms [facility]06-14-2021 NotePROCEDURE: XR FOOT LT MIN 3 [...] Electronically authenticated by: SHANTEL COPELAND Date: 2021-04-03 13:38[facility]01-25-2020 Evaluation + Plan note Future Appointments Appointment Date:11/09/2022 03:00:00 PM Scheduled Provider: Location:FT.CARDIO Appointment Type:CV Echo (FT) Appointment Date:11/14/2022 01:45:00 PM Scheduled Provider:Santiago Kong MD Location:FT.Cardiology Clinic Appointment Type:Cardiology Follow Up (FT) Future Scheduled Tests Radiology* XR Abdomen 1 View 09/20/22 * Echo Transthoracic Complete 11/09/22 [facility] evaluation + Plan note Future Appointments Appointment Date:04/03/2022 11:30:00 AM Scheduled Provider: Location:FT.Cardiology Clinic Appointment Type:Cardiology Follow Up (FT) Appointment Date:06/21/2022 09:00:00 AM Scheduled Provider:Edward Kaufman DO Location:FT.ONCOLOGY Appointment Type:ONC Office Visit 15 (FT) Appointment Date:09/27/2022 01:00:00 PM Scheduled Provider:ASHLEY TRINIDAD PA-C [facility] Appointment Type:URO Office Visit Future Scheduled Tests Laboratory* PSA Total 09/28/21 Radiology* [facility]dom[facility] Future Appointments Appointment Date:06/21/2022 09:00:00 AM Scheduled Provider:Edward Kaufman DO [facility] Type:ONC Office Visit 15 (FT) Appointment Date:09/27/2022 01:00:00 PM Scheduled Provider:ASHLEY TRINIDAD PA-C Location:[facility] Appointment Type:URO Office Visit Appointment Date:10/03/2022 01:15:00 PM Scheduled Provider:Santiago Kong MD [facility] Type:Cardiology Follow Up (FT) Future Scheduled Tests Laboratory* PSA Total 09/28/21 Radiology* XR Abdomen 1 View [facility]20/[facility] Future Appointments Appointment Date:08/28/2022 12:00:00 PM Scheduled Provider:Libia Watson CNP Location:[facility] Digestive Health Appointment Type:BADH Screening Appointment Date:09/27/2022 01:00:00 PM Scheduled Provider:ASHLEY TRINIDAD PA-C Location:[facility] Appointment Type:URO Office Visit Appointment Date:10/03/2022 01:15:00 PM Scheduled Provider:Santiago Kong MD [facility] Type:Cardiology Follow Up (FT) Future Scheduled Tests Laboratory* PSA Total 09/28/21 Radiology* XR Abdomen 1 View [facility]20/[facility] Future Appointments Appointment Date:08/20/2022 07:30:00 AM Scheduled Provider: Location:[facility] Surgical Services Appointment Type:Surgery FT Appointment Date:09/27/2022 01:00:00 PM Scheduled Provider:ASHLEY TRINIDAD PA-C Location:[facility] Appointment Type:URO Office Visit Appointment Date:10/03/2022 01:15:00 PM Scheduled Provider:Santiago Kong MD [facility] Type:Cardiology Follow Up (FT) Future Scheduled Tests Laboratory* PSA Total 09/28/21 Radiology* XR Abdomen 1 View 09/20/22 [facility] General Surgery [place] Evaluation + Plan note Future Appointments Appointment Date:10/17/2022 01:00:00 PM Scheduled Provider:ASHLEY TRINIDAD PA-C Location:[facility] Appointment Type:URO Office Visit Appointment Date:11/14/2022 01:45:00 PM Scheduled Provider:Santiago oKng MD [facility] Type:Cardiology Follow Up (FT) Future Scheduled Tests Radiology* XR Abdomen 1 View 09/20/22 * Echo Transthoracic [facility]03[facility] Future Appointments Appointment Date:01/22/2023 03:30:00 PM Scheduled Provider:Santiago Kong MD [facility] Type:Cardiology Follow Up (FT) Future Scheduled Tests Radiology* XR Abdomen 1 View 09/20/22 [facility] Future Appointments Appointment Date:04/29/2023 08:45:00 AM Scheduled Provider:Cyndee SANCHEZ CNP [facility] Type:Cardiology Follow Up (FT) Future Scheduled Tests Radiology* XR Abdomen 1 View 09/20/22 [facility] Future Appointments Appointment Date:05/07/2023 01:30:00 PM Scheduled Provider:Bryon Cruz MD Location:[facility] Appointment Type:Pain Management - New (FT) Future Scheduled Tests Radiology* XR Abdomen 1 View 09/20/22 [facility] Future Appointments Appointment Date:07/05/2023 10:30:00 AM Scheduled Provider: Location:.[place]ICAL [place] Appointment Type:PT Re-Eval 45 (FT) Appointment Date:07/09/2023 07:00:00 AM Scheduled Provider: Location:.[place] Appointment Type:PT 45 (FT) Appointment Date:07/12/2023 07:00:00 AM Scheduled Provider: Location:.[place] Appointment Type:PT 45 (FT) Appointment Date:07/16/2023 07:00:00 AM Scheduled Provider: [facility] Type:PT 45 (FT) Appointment Date:07/18/2023 03:00:00 PM Scheduled Provider: Location:[place] Appointment Type:PT Re-Eval 45 (FT) Appointment Date:07/22/2023 06:45:00 AM Scheduled Provider: Location:[place] Appointment Type:PT 45 (FT) Appointment Date:07/25/2023 10:00:00 AM Scheduled Provider: Location:[place] Appointment Type:PT Re-Eval 45 (FT) Future Scheduled Tests Radiology* XR Abdomen 1 View 09/20/22 [facility] + Plan note Future Appointments Appointment Date:11/01/2023 01:45:00 PM Scheduled Provider:Santiago Kong MD Location:FT.Cardiology Clinic Appointment Type:Cardiology Follow Up (FT) Future Scheduled Tests Radiology* XR Abdomen 1 View 09/20/22 [facility] note* Diagnosis Rectal cancer (HCC)- Primary Malignant neoplasm of rectum Rheumatoid arthritis involving multiple sites, unspecified whether rheumatoid factor present (HCC) documented in this encounter [facility] note* Diagnosis Rectal adenocarcinoma (HCC)- Primary Malignant neoplasm of rectum documented in this encounter [facility] note* Diagnosis Rectal adenocarcinoma (HCC)- Primary Malignant neoplasm of rectum documented in this encounter [facility] note* Diagnosis Rectal adenocarcinoma (HCC)- Primary Malignant neoplasm of rectum documented in this encounter [facility] noteNo assessment [facility] Phone: Evaluation note* Diagnosis Rectal cancer (HCC)- Primary Malignant neoplasm of rectum Abnormal PET scan of lung Nonspecific abnormal results of pulmonary system function study documented in this encounter [facility] note* Diagnosis Adenopathy- Primary Enlargement of lymph nodes Adenopathy Enlargement of lymph nodes documented in this encounter [facility] note* Diagnosis Adenopathy Enlargement of lymph nodes Adenopathy Enlargement of lymph nodes documented in this encounter [facility] note* Diagnosis Rectal adenocarcinoma (HCC)- Primary Malignant neoplasm of rectum Adenopathy Enlargement of lymph nodes documented in this encounter [facility] note* Diagnosis Adenopathy- Primary Enlargement of lymph [...] [facility] Diagnosis Rectal cancer (HCC)- Primary [...] of rect[facility] Diagnosis Rectal cancer (HCC)- Primary [...] of rectum [facility] Diagnosis Rectal cancer (HCC)- Primary Malignant neoplasm of rectum [facility] Diagnosis Rectal cancer (HCC) Malignant neoplasm of rectum Primary hypercoagulable state (HCC) Primary hypercoagulable state Rheumatoid arthritis involving multiple sites, unspecified whether rheumatoid factor present (HCC) [facility] Diagnosis Rectal cancer (HCC)- Primary Malignant neoplasm of rectum Malignant neoplasm of prostate (HCC) Malignant neoplasm of prostate [facility] Diagnosis Rectal cancer (HCC)- Primary Malignant neoplasm of rectum [facility] Diagnosis Rectal cancer (HCC)- Primary Malignant neoplasm of rectum Primary hypercoagulable state (HCC) Primary hypercoagulable state Rheumatoid arthritis involving multiple sites, unspecified whether rheumatoid factor present (HCC) [facility]* Diagnosis Rectal cancer (HCC)- Primary Malignant neoplasm of rectum [facility] Diagnosis Rectal cancer (HCC) Malignant neoplasm of rectum [facility] Diagnosis Encounter for follow-up surveillance of rectal cancer- Primary Unspecified follow-up examination Malignant neoplasm of rectum (HCC) Malignant neoplasm of rectum [facility]* Diagnosis Neoplasm related pain (acute) (chronic) [facility]* Diagnosis Hypokalemia- Primary Hypopotassemia [facility]* Diagnosis Rectal cancer (HCC) Malignant neoplasm of rectum [facility] Diagnosis Rectal cancer (HCC)- Primary Malignant neoplasm of rectum Neoplasm related pain (acute) (chronic) Rheumatoid arthritis involving multiple sites, unspecified whether rheumatoid factor present (HCC) Acute deep vein thrombosis (DVT) of distal vein of left lower extremity (HCC) [facility] Diagnosis Rectal cancer (HCC)- Primary Malignant neoplasm of rectum [facility] Diagnosis Rectal cancer (HCC) Malignant neoplasm of rectum [facility] Diagnosis Malignant neoplasm of rectum (HCC)- Primary Malignant neoplasm of rectum [facility] Diagnosis Encounter for follow-up surveillance of rectal cancer- Primary Unspecified follow-up examination documented in this encounter [facility] note* Diagnosis Encounter for follow-up surveillance of rectal cancer Unspecified follow-up examination documented in this encounter [facility] note* Diagnosis Rectal cancer (HCC)- Primary Malignant neoplasm of rectum documented in this encounter [facility] note* Diagnosis Rectal cancer (HCC)- Primary Malignant neoplasm of rectum documented in this encounter [facility] note* Diagnosis Encounter for follow-up surveillance of rectal cancer- Primary Unspecified follow-up examination documented in this encounter [facility] note* Diagnosis Malignant neoplasm of rectum (HCC) Malignant neoplasm of rectum documented in this encounter [facility] general Narrative - Reported* Type Description [...] Cataracts Late 2018 Hospitalization History see surg [facility] Other Hospital course Narrative No data available for this section [facility] No data available [facility] this section [facility] No data available for this section [facility] Outpatient Procedure (Routine) - Authorized Specialty Diagnoses / Procedures Referred By Rosanne t [facility] Diagnoses Adenopathy Procedures ECG COMPLETE ECG ROUTINE ECG W/LEAST 12 LDS W/I&R Hang Maier MD [address] [place] [address] [facility] [place] [facility] [place] [address] Referral ID Status Reason Start Date Expiration Date Visits Requested Visits Authorized [id number] Authorized Auto-Generat ed Referral 2 2023 1 1 [facility] for referral (narrative)* Diagnostic Procedure Only (Routine) - Pending Review Specialty Diagnoses / Procedures Referred By Contac t Referred To Contact US IMAGING Diagnoses Leg swelling Procedures US DVT LOWER LEFT DUP-SCAN XTR VEINS UNILATERAL/LIMITED STUDY Andree Hollis, AZAEL.BEADING INSTALLER [address] [place] [address] [place] [address] Us Imaging Referral ID Status Reason Start Date Expiration Date Visits Requested Visits Authorized [id number] Pending Review Auto-Generat ed Referral 01/22/2023 02/21/2024 1 1 [facility] for referral (narrative)* Outpatient Procedure (Routine) - Pending Review Specialty Diagnoses / Procedures Referred By Contac t Referred To Contact [facility] Diagnoses Encounter for follow-up surveillance of rectal cancer Procedures SIGMOIDOSCOPY SIGMOIDOSCOPY FLX DX W/COLLJ SPEC BR/[place] [address] [place] [address] [facility] [address] [place] [address] Referral ID Status Reason Start Date Expiration Date Visits Requested Visits Authorized [id number] Pending Review Auto-Generat ed Referral 07/24/2023 07/24/2024 1 1 [facility] for referral (narrative)* Outpatient Procedure (Routine) - Closed Specialty Diagnoses / Procedures Referred By Contac t Referred To Contact [facility] Diagnoses Encounter for follow-up surveillance of rectal cancer Procedures SIGMOIDOSCOPY SIGMOIDOSCOPY FLX DX W/COLLJ SPE[place] BR/[place] [address] [address] [place] [address] [facility] [address] [place] [address] Referral ID Status Reason Start Date Expiration Date V isits Requested Visits Authorized [id number] Closed Auto-Generate d Referral 05/03/2023 05/03/2024 1 1 [facility] for referral (narrative)* Outpatient Procedure (Routine) - Closed Specialty Diagnoses / Procedures Referred By Rosanne engle Referred To Contact [facility] Diagnoses Rectal cancer (HCC) Procedures COLONOSCOPY DIAGNOSTIC COLONOSCOPY FLX DX W/[place] [address] [address] [place] [address] [place] [id number] Referral ID Status Reason Start Date Expiration Date V isits Requested Visits Authorized [id number] Closed Auto-Generate d Referral 02/07/2023 02/08/2024 1 1 [facility] for visit Narrative* Outpatient Procedure (Routine) - Closed Specialty Diagnoses / Procedures Referred By Rosanne engle Referred To Contact [facility] Diagnoses Adenopathy Procedures ECG COMPLETE ECG ROUTINE ECG W/LEAST 12 [facility] W/I&[place] [address] [place], [place] [id number] [place] [address] Referral ID Status Reason Start Date Expiration Date V isits Requested Visits Authorized [id number] Closed Auto-Generate d Referral 2022 2023 1 1 [facility] for visit Narrative* Outpatient Procedure (Routine) - Closed Specialty Diagnoses / Procedures Referred By Rosanne engle [facility] Diagnoses Encounter for follow-up surveillance of rectal cancer Procedures SIGMOIDOSCOPY SIGMOIDOSCOPY FLX DX W/COLLJ SPEC BR/[place] [address] [address] [place] [address] [address] Referral ID Status Reason Start Date Expiration Date V isits Requested Visits Authorized [id number] Closed Auto-Generate d Referral 05/03/2023 05/03/2024 1 1 [facility] for visit Narrative* Outpatient Procedure (Routine) - Closed Specialty Diagnoses / Procedures Referred By Contac t Referred To [facility] Diagnoses Rectal cancer (HCC) Procedures COLONOSCOPY DIAGNOSTIC COLONOSCOPY FLX DX W/[place] [address] [address] [place] [address] [facility] [place] [address] [place] [address] Referral ID Status Reason Start Date Expiration Date V isits Requested Visits Authorized [id number] Closed Auto-Generate d Referral 02/07/2023 02/08/2024 1 1 [facility] Summary Purpose Family History No Family History [...] Cervical stenosis of spine (M48.02) Referral Organization [facility] Referring Provider First Name Valencia Referring Provider Last Name Darin Referring Provider Specialty Nurse Pract juliana Referred Organization [facility] Referred Provider Shantel Langston Referred Address [address] [place] [phone] Referred Provider Specialty Neurology Referral Priority Routine General Notes Rika Shabazz 023 03:33:00 PM >Spoke with Dr. Cruz's office and Dr. Cruz does not them them or do they do them in their office. [facility] Central scheduling schedules them which she transferred me to Central Scheduling and they said that Dr. Langston comes in like twice a month and does them through [facility] but he is scheduled out to July. She said it would be better to send to his office Surekha Lopez 06/18/2023 03:46:05 PM > thank you for the letting me know, I was not aware that is the way they did it, can we update the referrals to go through [facility]? Rika Sahbazz 06/19/2023 09:08:47 AM >OK, will do. Thank you. Rika Shabazz 06/19/2023 09:47:30 AM >Received today and waiting for office notes to be locked before sending referral Riak Shabazz 06/20/2023 09:43:21 AM >Office notes are locked. [facility] request us to fill out their form and attach to Referral and send it to them and they will call patient to schedule. Referral was sent P2P Clinical Notes Office [phone] Reason 05/07/23 @ 1:30pm evaluate and treat Diagnosis 1 Cervical radiculopat hy (M54.12) Referral Organization [facility] Referring Provider First Name Valencia Referring Provider Last Name Darin Referring Provider Specialty Nurse Pract juliana Referred Organization [facility] Referred Provider Bryon Cruz Referred Address [address] [place] [phone] Referred Provider Specialty Pain Medicin e Referral Priority Routine Referral Appointment Date 2023-05-07 General Notes Rika Shabazz 023 10:03:13 AM >Received today. [facility] Pain Medicine 's office request us to fill out form and fax referral to them and they will review the referral and call patient. Referral was fax. Rika Shabazz 04/19/2023 09:24:32 AM >Spoke with Jonah at [facility] Pain Medicine 's office and patient has been scheduled for 05/07/23 @ 1:30pm Rika Shabazz 05/08/2023 11:42:50 AM >Spoke with Silvia at [facility] Pain Medicine office and patient was seen. She transferred me to [facility] Medical Records to get office notes Rika Shabazz 05/08/2023 11:46:09 AM >Spoke with Elba at [facility] Medical Records and she will fax the notes to us Rika Shabazz 05/08/2023 01:19:55 PM >Received consult notes Clinical Notes Office [phone] Reason 05/02/23 @ 2:00pm evaluate and treat - Left hip pain Diagnosis 1 Cervical radiculopat hy (M54.12) Referral Organization [facility] Referring Provider First Name Valencia Referring Provider Last Name Darin Referring Provider Specialty Nurse Wanda andrews Referred Organization [facility] Referred Provider Jakob Mora Jr. Referred Address ,[place], [place],[address] Referred Provider Specialty Orthopedic S urgery Referral Priority Routine Referral Appointment Date 2023-05-02 General Notes Rika Shabazz 04/12/ 023 07:35:08 AM >Received today and referral was fax. They will review and call patient to schedule Rika Shabazz Hesham 04/19/2023 09:50:53 AM >Fax letter for appt update Rika Shabazz 05/01/2023 09:53:54 AM >[facility] Orth[facility] office and patient has been scheduled for 05/02/23 @ 2 Rika Shabazz 05/03/2023 08:50:48 AM >Reviewed [facility] and patient went to appt but I do not think the office notes are complete yet Rika Shabazz 05/06/2023 07:52:53 AM >Received consult notes from [facility] Clinical Notes Office [phone] Specialty Diagnoses / Procedures Referred By Contac t Referred To Contact CT IMAGING Diagnoses Malignant neoplasm of rectum (HCC) Procedures CT ABDOMEN W IVCON [place] ABDOMEN [place] [address] [address] [place] [address] Ct Imaging Referral ID Status Reason Start Date Expiration Date Visits Requested Visits Authorized [id number] Pending Review Auto-Generat ed Referral 05/03/2023 06/01/2024 1 1 Specialty Diagnoses / Procedures Referred By Contac t Referred To Contact CT IMAGING Diagnoses Malignant neoplasm of rectum (HCC) Procedures CT CHEST W IVCON DIAGNOSTIC COMPUTED TOMOGRAPHY THORAX W/[place] [address] [address] [place] [address] Ct Imaging Referral ID Status Reason Start Date Expiration Date Visits Requested Visits Authorized [id number] Pending Review Auto-Generat ed Referral 05/03/2023 06/01/2024 1 1 Specialty Diagnoses / Procedures Referred By Contac t Referred To Contact MR IMAGING Diagnoses Malignant neoplasm of rectum (HCC) Procedures MRI RECTUM WO/W IVCON MRI PELVIS W/O & W/[place] [address] [address] [place] [address] Mr Imaging Referral ID Status Reason Start Date Expiration Date Visits Requested Visits Authorized [id number] Pending Review Auto-Generat ed Referral 05/03/2023 06/01/2024 1 1 Specialty Diagnoses / Procedures Referred By Contac t Ref[facility] Diagnoses Encounter for follow-up surveillance of rectal cancer Procedures SIGMOIDOSCOPY SIGMOIDOSCOPY FLX DX W/COLLJ SPEC BR/WA [place]FR[place] [address] [place] [address] [facility] [place] [address] [place] [address] Referral ID Status Reason Start Date Expiration Date Visits Requested Visits Authorized [id number] Pending Review Auto-Generat ed Referral 05/03/2023 05/03/2024 1 1 Reason evaluate and treat Diagnosis 1 Cervical radiculopat hy (M54.12) Referral Organization [facility] Referring Provider First Name Valencia Referring Provider Last Name Torres Referring Provider Specialty Nurse Pract itioner Referred Organization [facility] Referred Provider Bryon Cruz Referred Address [address] [place] [phone] Referred Provider Specialty Anesthesiolo gy Referral Priority Routine Reason evaluate and treat - Left hip pain Diagnosis 1 Cervical radiculopat hy (M54.12) Referral Organization [facility] Referring Provider First Name Valencia Referring Provider Last Name Torres Referring Provider Specialty Nurse Pract itioner Referred Organization [facility] Referred Provider Jakob Mora Jr. Referred Address ,[place], [place],[address] Referred Provider Specialty Orthopedic S urgery Referral Priority Routine Specialty Diagnoses / Procedures Referred By Contac t Referred To Contact MR IMAGING Diagnoses Malignant neoplasm of rectum (HCC) Procedures MRI RECTUM WO/W IVCON MRI PELVIS W/O & W/[place] [address] [address] [place] [address] Mr Imaging Referral ID Status Reason Start Date Expiration Date Visits Requested Visits Authorized [id number] Authorized Auto-Generat ed Referral 02/07/2023 03/08/2024 1 1 Specialty Diagnoses / Procedures Referred By Contac t Referred [facility] Contact [facility] Diagnoses Rectal cancer (HCC) Procedures COLONOSCOPY DIAGNOSTIC COLONOSCOPY FLX DX W/COLLJ SPEC [place] [address] [address] [facility] [address] [place] [address] [facility] [place] [address] [place] [address] Referral ID Status Reason Start Date Expiration Date Visits Requested Visits Authorized [id number] Authorized Auto-Generat ed Referral 02/07/2023 02/08/2024 1 1 Specialty Diagnoses / Procedures Referred By Contac t Referred To Contact Colon and Rectal Surgery Diagnoses Rectal cancer (HCC) Procedures CONSULT TO [place] [address] [place] [address] [place] [address] [address] [facility] [address] [place] [address] Referral ID Status Reason Start Date Expiration Date Visits Requested Visits Authorized [id number] Ref Not Required PCP Requested Referral 02/04/2023 02/04/2024 1 1 Specialty Diagnoses / Procedures Referred By Contac t Referred To Contact Gastroenterology Diagnoses Rectal cancer (HCC) Rectal bleeding Procedures CONSULT TO GASTROENTEROLOGY OFFICE/OUTPATIENT NEW HIGH MDM 60-74 MINUTES Andree Hollis, [employer]ICCOL[employer] MECHANIC.BEADING INSTALLER [address] [facility] [place] [address] Referral ID Status Reason Start Date Expiration Date Visits Requested Visits Authorized [id number] Authorized PCP Requested Referral 01/23/2023 01/23/2024 1 1 Specialty Diagnoses / Procedures Referred By Contac t Referred To Contact CT IMAGING Diagnoses Lung nodules Procedures CT CHEST W IVCON DIAGNOSTIC COMPUTED TOMOGRAPHY THORAX W/CONTRAST Minerva Anderson MD [address] [facility] [place] [address] Ct Imaging Referral ID Status Reason Start Date Expiration Date Visits Requested Visits Authorized [id number] Authorized Auto-Generat ed Referral 11/19/2022 12/19/2023 1 1 Specialty Diagnoses / Procedures Referred By Contac t Referred To Contact CT IMAGING Diagnoses Lung nodules Rectal cancer (HCC) Procedures CT ABD/PEL W IVCON CT ABD & PELVIS W/CONTRAST Minerva Anderson MD [address] [place] [address] [place] [address] Ct Imaging Referral ID Status Reason Start Date Expiration Date Visits Requested Visits Authorized [id number] Authorized Auto-Generat ed Referral 11/19/2022 12/19/2023 1 1 Specialty Diagnoses / Procedures Referred By Contac t Referred To Contact RADIATION ONCOLOGY Diagnoses Rectal adenocarcinoma (HCC) Procedures CT SIM PLANNING RADIATION ONCOLOGY THER RAD SIMULAJ-AIDED FIELD SETTING COMPLEX IMRT Dania Vásquez MD [address] [place] [address] [place] [address] [address] [place] [address] Referral ID Status Reason Start Date Expiration Date Visits Requested Visits Authorized [id number] Pending Review PCP Requested Referral 09/24/2022 12/23/2022 1 1 Specialty Diagnoses / Procedures Referred By Contac t Referred To Contact Radiation Oncology Diagnoses Rectal cancer (HCC) Procedures RAD/ONC CONSULT OFFICE/OUTPATIENT NEW HIGH MDM 60-74 MINUTES Minerva Anderson MD [address] [place] [address] [place] [address] Referral ID Status Reason Start Date Expiration Date Visits Requested Visits Authorized [id number] Authorized PCP Requested Referral 2 09/17/2023 1 1 Specialty Diagnoses / Procedures Referred By Contac t Referred To Contact MR IMAGING Diagnoses Rectal cancer (HCC) Procedures MRI ABDOMEN WO/W IVCON MRI ABDOMEN W/O & W/CONTRAST MATERIAL Minerva Anderson MD [address] [place] [address] [place] [address] Mr Imaging Referral ID Status Reason Start Date Expiration Date Visits Requested Visits Authorized [id number] Pending Review Auto-Generat ed Referral 2 10/17/2023 1 1 Specialty Diagnoses / Procedures Referred By Rosanne engle Referred To Contact MOLECULAR & FUNCTIONAL IMAGING Diagnoses Rectal cancer (HCC) Procedures NM PET/CT SKULL-THIGH INITIAL PET IMAGING CT ATTENUATION SKULL BASE MID-THIGH Minerva Anderson MD [address] [place] [address] [place] [address] Molecular & Functional Imaging [address] [place] [address] Referral ID Status Reason Start Date Expiration Date Visits Requested Visits Authorized [id number] Authorized Auto-Generat ed Referral 2 10/17/2023 1 [...] section and content) DATE CREATED AUTHOR 08/09/2021 [facility] DATE CREATED AUTHOR AUTHOR'S ORGANIZ ATION 09/27/2022 [facility] DATE CREATED AUTHOR AUTHOR'S ORGANIZ ATION 10/14/2022 [facility] DATE CREATED AUTHOR AUTHOR'S ORGANIZ ATION 04/19/2023 [facility] DATE CREATED AUTHOR AUTHOR'S ORGANIZ ATION 08/16/2023 [facility] DATE CREATED AUTHOR AUTHOR'S ORGANIZ ATION 10/12/2023 [facility] EPIC DATE CREATED AUTHOR AUTHOR'S ORGANIZ ATION 10/25/2023 [facility] DATE CREATED AUTHOR AUTHOR'S ORGANIZ ATION 12/05/2023 [facility] DATE CREATED AUTHOR AUTHOR'S ORGANIZ ATION 12/24/2023 [facility] Care Team (unrecognized sect ion and content) Team Status: Active Member Role Status Dates Lorenzo Olson DO Primary Care Provider Active Team Status: Inactive Member Role Status Dates Lorenzo Olson , Primary Care Provider Active JM Busby Attending Provider Active Hydrotherapist Relationship Specialty Start Date End Date Lorenzo Olson DO PCP - General Family Medicine 04/16/13 Hydrotherapist Relationship Specialty Start Date End Date Lorenzo Olson DO PCP - General Family Medicine 04/16/13 Hydrotherapist Relationship Specialty Start Date End Date Lorenzo Olson DO PCP - General Family Medicine 04/16/13 Hydrotherapist Relationship Specialty Start Date End Date Lorenzo Olson DO PCP - General Family Medicine 04/16/13 Hydrotherapist Relationship Specialty Start Date End Date Lorenzo Olson DO PCP - General Family Medicine 04/16/13 Hydrotherapist Relationship Specialty Start Date End Date Lorenzo Olson DO PCP - General Family Medicine 04/16/13 Hydrotherapist Relationship Specialty Start Date End Date Lorenzo Olson DO PCP - General Family Medicine 04/16/13 Hydrotherapist Relationship Specialty Start Date End Date Eloy Olsonory DO Asim PCP - General Family Medicine 04/16/13 Hydrotherapist Relationship Specialty Start Date End Date Lorenzo Olson DO PCP - General Family Medicine 04/16/13 Hydrotherapist Relationship Specialty Start Date End Date Lorenzo Olson DO PCP - General Family Medicine 04/16/13 Hydrotherapist Relationship Specialty Start Date End Date Lorenzo Olson DO PCP - General Family Medicine 04/16/13 Sera Forbes LSW Learning Support Aide 09/26/22 Team Status: Inactive Member Role Status Dates Lorenzo Olson DO Primary Care Provider Active Minerva Anderson MD Attending Provider Active Hydrotherapist Relationship Specialty Start Date End Date Lorenzo Olson DO PCP - General Family Medicine 04/16/13 Sera Forbes LSW Learning Support Aide 09/26/22 Minerva Anderson MD [address] [place] [address] [place] [address] Physician Hematology/Oncology 10/01/22 Dania Vásquez MD [address] [place] [address] [place] [address] Physician Radiation Oncology 10/01/22 Andree Hollis, [employer]IC[employer] MECH[employer]IC.BEADING INSTALLER [address] [facility] [place] [address] Nurse Practitioner Hematology/Oncology 10/01/22 Denisha Duarte, ALEXUS [address] [place] [address] [place] [address] Specialty Senior Linux Administrator Hematology/Oncology 10/01/22 Hydrotherapist Relationship Specialty Start Date End Date Lorenzo Olson DO PCP - General Family Medicine 04/16/13 Sera Forbes LSW Learning Support Aide 09/26/22 Minerva Anderson MD [address] [facility] [address] [place], [place] [id number] Physician Hematology/Oncology 10/01/22 Dania Vásquez MD [address] [facility] [address] [place], [place] [id number] Physician Radiation Oncology 10/01/22 Andree Hollis, PIC[employer] MECHANIC.BEADING INSTALLER [address] [facility] [place] [address] Nurse Practitioner Hematology/Oncology 10/01/22 Denisha Duarte, ALEXUS [address] [facility] [place] [address] Specialty Senior Linux Administrator Hematology/Oncology 10/01/22 Hydrotherapist Relationship Specialty Start Date End Date Lorenzo Olson DO PCP - General Family Medicine 04/16/13 Sera Forbes LSW Learning Support Aide 09/26/22 Minerva Anderson MD [address] [facility] [place] [address] Physician Hematology/Oncology 10/01/22 Dania Vásquez MD [address] [facility] [place] [address] Physician Radiation Oncology 10/01/22 Andree Hollis, [employer] MECH[employer]IC.BEADING INSTALLER [address] [facility] [place] [address] Nurse Practitioner Hematology/Oncology 10/01/22 Denisha Duarte, ALEXUS [address] [facility] [place] [address] Specialty Senior Linux Administrator Hematology/Oncology 10/01/22 Hydrotherapist Relationship Specialty Start Date End Date Lorenzo Olson DO PCP - General Family Medicine 04/16/13 Sera Forbes LSW Learning Support Aide 09/26/22 Minerva Anderson MD [address] [facility] [address] [place], [place] [id number] Physician Hematology/Oncology 10/01/22 Dania Vásquez MD [address] [facility] [address] [place], [place] [id number] Physician Radiation Oncology 10/01/22 Andree Hollis, PIC[employer]O MECHANIC.BEADING INSTALLER [address] [facility] [place] [address] Nurse Practitioner Hematology/Oncology 10/01/22 Denisha Duarte, ALEXUS [address] [facility] [place] [address] Specialty Senior Linux Administrator Hematology/Oncology 10/01/22 Hydrotherapist Relationship Specialty Start Date End Date Lorenzo Olson DO PCP - General Family Medicine 04/16/13 Sera Forbes HAT [employer] Learning Support Aide 09/26/22 Minerva Anderson MD [address] [facility] [place] [address] Physician Hematology/Oncology 10/01/22 Dania Vásquez MD [address] [facility] [place] [address] Physician Radiation Oncology 10/01/22 Andree Hollis, PICCOLO MECHANIC.BEADING INSTALLER [address] [facility] [place] [address] Nurse Practitioner Hematology/Oncology 10/01/22 Denisha Duarte, ALEXUS [address] [facility] [place] [address] Specialty Senior Linux Administrator Hematology/Oncology 10/01/22 Hydrotherapist Relationship Specialty Start Date End Date Tomas Lorenzo DaileyDO PCP - General Family Medicine 04/16/13 Sera Forbes, HAT BRIM CURLER Learning Support Aide 09/26/22 Minerva Anderson MD [address] [facility] [place] [address] Physician Hematology/Oncology 10/01/22 Dania Vásquez MD [address] [facility] [place] [address] Physician Radiation Oncology 10/01/22 Andree Hollis, PICCOLO MECHANIC.BEADING INSTALLER [address] [facility] [place] [address] Nurse Practitioner Hematology/Oncology 10/01/22 Denisha Duarte, ALEXUS [address] [facility] [place] [address] Specialty Senior Linux Administrator Hematology/Oncology 10/01/22 Hydrotherapist Relationship Specialty Start Date End Date Tomas Lorenzo DO Asim PCP - General Family Medicine 04/16/13 Sera Forbes HAT BRIM CURLER Learning Support Aide 09/26/22 Minerva Anderson MD [address] [facility] [place] [address] Physician Hematology/Oncology 10/01/22 Dania Vásquez MD [address] [facility] [place] [address] Physician Radiation Oncology 10/01/22 Andree Hollis, PICCOLO MECHANIC.BEADING INSTALLER [address] [facility] [place] [address] Nurse Practitioner Hematology/Oncology 10/01/22 Denisha Duarte, ALEXUS [address] [facility] [place] [address] Specialty Senior Linux Administrator Hematology/Oncology 10/01/22 Hydrotherapist Relationship Specialty Start Date End Date Lorenzo Olson DO PCP - General Family Medicine 04/16/13 Sera Forbes, [facility] Learning Support Aide 09/26/22 Minerva Anderson MD [address] [facility] [address] [place], [place] [id number] Physician Hematology/Oncology 10/01/22 Dania Vásquez MD [address] [facility] [place] [address] Physician Radiation Oncology 10/01/22 Andree Hollis, PICCOLO MECHANIC.BEADING INSTALLER [address] [facility] [place] [address] Nurse Practitioner Hematology/Oncology 10/01/22 Denisha Duarte, ALEXUS [address] [facility] [place] [address] Specialty Senior Linux Administrator Hematology/Oncology 10/01/22 Hydrotherapist Relationship Specialty Start Date End Date Lorenzo Olson DO PCP - General Family Medicine 04/16/13 Sera Forbes, [facility] Learning Support Aide 09/26/22 Minerva Anderson MD [address] [facility] [place] [address] Physician Hematology/Oncology 10/01/22 Dania Vásquez MD [address] [facility] [place] [address] Physician Radiation Oncology 10/01/22 Andree Hollis, PICCOLO MECHANIC.BEADING INSTALLER [address] [facility] [place] [address] Nurse Practitioner Hematology/Oncology 10/01/22 Denisha Duarte, ALEXUS [address] [facility] [place] [address] Specialty Senior Linux Administrator Hematology/Oncology 10/01/22 Hydrotherapist Relationship Specialty Start Date End Date Lorenzo Olson DO PCP - General Family Medicine 04/16/13 Sera Forbes, [facility] Learning Support Aide 09/26/22 Minerva Anderson MD [address] [facility] [place] [address] Physician Hematology/Oncology 10/01/22 Dania Vásquez MD [address] [facility] [place] [address] Physician Radiation Oncology 10/01/22 Andree Hollis, PICCOLO MECHANIC.[facility] [address] [facility] [place] [address] Nurse Practitioner Hematology/Oncology 10/01/22 Denisha Duarte, ALEXUS [address] [facility] [place] [address] Specialty Senior Linux Administrator Hematology/Oncology 10/01/22 Hydrotherapist Relationship Specialty Start Date End Date Lorenzo Olson DO PCP - General Family Medicine 04/16/13 Sera Forbes, [facility] Learning Support Aide 09/26/22 Minerva Anderson MD [address] [facility] [address] [place], [place] [id number] Physician Hematology/Oncology 10/01/22 Dania Vásquez MD [address] [facility] [place] [address] Physician Radiation Oncology 10/01/22 Andree Hollis, PICCOLO MECHANIC.BEADING INSTALLER [address] [facility] [place] [address] Nurse Practitioner Hematology/Oncology 10/01/22 Denisha Duarte, RN [address] [facility] [place] [address] Specialty Senior Linux Administrator Hematology/Oncology 10/01/22 Hydrotherapist Relationship Specialty Start Date End Date Lorenzo Olson DO PCP - General Family Medicine 04/16/13 Sera Forbes LSW Learning Support Aide 09/26/22 Minerva Anderson MD [address] [facility] [address] [place], [place] 9[address]70 Physician Hematology/Oncology 10/01/22 Dania Vásquez MD [address] [facility] [place] [address] Physician Radiation Oncology 10/01/22 Andree Hollis, PICCOLO MECHANIC.BEADING INSTALLER [address] [facility] [place] [address] Nurse Practitioner Hematology/Oncology 10/01/22 Denisha Duarte, RN [address] [facility] [place] [address] Specialty Senior Linux Administrator Hematology/Oncology 10/01/22 Hydrotherapist Relationship Specialty Start Date End Date Lorenzo Olson DO PCP - General Family Medicine 04/16/13 Sera Forbes LSW Learning Support Aide 09/26/22 Minerva Anderson MD [address] [facility] [place] [address] Physician Hematology/Oncology 10/01/22 Dania Vásquez MD [address] [facility] [address] [place], [place] 5984870 Physician Radiation Oncology 10/01/22 Andree Hollis, PICCOLO MECHANIC.BEADING INSTALLER [address] [facility] [place] [address] Nurse Practitioner Hematology/Oncology 10/01/22 Denisha Duarte, ALEXUS [address] [facility] [place] [address] Specialty Senior Linux Administrator Hematology/Oncology 10/01/22 Hydrotherapist Relationship Specialty Start Date End Date Lorenzo Olson DO PCP - General Family Medicine 04/16/13 Sera Forbes LSW Learning Support Aide 09/26/22 Minerva Anderson MD [address] [facility] [place] [address] Physician Hematology/Oncology 10/01/22 Dania Vásquez MD [address] [facility] [place] [address] Physician Radiation Oncology 10/01/22 Andree Hollis, PICCOLO MECHANIC.BEADING INSTALLER [address] [facility] [place] [address] Nurse Practitioner Hematology/Oncology 10/01/22 Denisha Duarte, ALEXUS [address] [facility] [place] [address] Specialty Senior Linux Administrator Hematology/Oncology 10/01/22 Hydrotherapist Relationship Specialty Start Date End Date Lorenzo Olson DO PCP - General Family Medicine 04/16/13 Sera Forbes LSW Learning Support Aide 09/26/22 Minerva Anderson MD [address] [facility] [place] [address] Physician Hematology/Oncology 10/01/22 Dania Vásquez MD [address] [facility] [place] [address] Physician Radiation Oncology 10/01/22 Andree Hollis, PICCOLO MECHANIC.BEADING INSTALLER [address] [facility] [place] [address] Nurse Practitioner Hematology/Oncology 10/01/22 Denisha Duarte, RN [address] [facility] [address] [place], [place] 8[address]3270 Specialty Senior Linux Administrator Hematology/Oncology 10/01/22 Hydrotherapist Relationship Specialty Start Date End Date Lorenzo Olson DO PCP - General Family Medicine 04/16/13 Sera Forbes LSW Learning Support Aide 09/26/22 Minerva Anderson MD [address] [facility] [place] [address] Physician Hematology/Oncology 10/01/22 Dania Vásquez MD [address] [facility] [place] [address] Physician Radiation Oncology 10/01/22 Andree Hollis, PICCOLO MECHANIC.BEADING INSTALLER [address] [facility] [place] [address] Nurse Practitioner Hematology/Oncology 10/01/22 Denisha Duarte, RN [address] [facility] [place] [address] Specialty Senior Linux Administrator Hematology/Oncology 10/01/22 Hydrotherapist Relationship Specialty Start Date End Date Lorenzo Olson DO PCP - General Family Medicine 04/16/13 Sera Forbes LSW Learning Support Aide 09/26/22 Minerva Anderson MD [address] [facility] [place] [address] Physician Hematology/Oncology 10/01/22 Dania Vásquez MD [address] [facility] [place] [address] Physician Radiation Oncology 10/01/22 Andree Hollis, PICCOLO MECHANIC.[facility] [address] [facility] [place] [address] Nurse Practitioner Hematology/Oncology 10/01/22 Denisha Duarte, RN [address] [facility] [place] [address] Specialty Senior Linux Administrator Hematology/Oncology 10/01/22 Hydrotherapist Relationship Specialty Start Date End Date Lorenzo Olson DO PCP - General Family Medicine 04/16/13 Sera Forbes LSW Learning Support Aide 09/26/22 Minerva Anderson MD [address] [facility] [place] [address] Physician Hematology/Oncology 10/01/22 Dania Vásquez MD [address] [facility] [place] [address] Physician Radiation Oncology 10/01/22 Andree Hollis, PICCOLO MECHANIC.[facility] [address] [facility] [place] [address] Nurse Practitioner Hematology/Oncology 10/01/22 Denisha Duarte, ALEXUS [address] [facility] [place] [address] Specialty Senior Linux Administrator Hematology/Oncology 10/01/22 Hydrotherapist Relationship Specialty Start Date End Date Lorenzo Olson DO PCP - General Family Medicine 04/16/13 Sera Forbes LSW Learning Support Aide 09/26/22 Minerva Anderson MD [address] [facility] [place] [address] Physician Hematology/Oncology 10/01/22 Dania Vásquez MD [address] [facility] [place] [address] Physician Radiation Oncology 10/01/22 Andree Hollis, PICCOLO MECHANIC.[address] [place] [address] Nurse Practitioner Hematology/Oncology 10/01/22 Denisha Duarte, ALEXUS [address] [facility] [place] [address] Specialty Senior Linux Administrator Hematology/Oncology 10/01/22 Hydrotherapist Relationship Specialty Start Date End Date Lorenzo Olson DO PCP - General Family Medicine 04/16/13 Sera Forbes LSW Learning Support Aide 09/26/22 Minerva Anderson MD [address] [facility] [place] [address] Physician Hematology/Oncology 10/01/22 Dania Vásquez MD [address] [place] [address] [place] [address] Physician Radiation Oncology 10/01/22 Andree Hollis, PICCOLO MECHANIC.[facility] [address] [facility] [place] [address] Nurse Practitioner Hematology/Oncology 10/01/22 Denisha Duarte, ALEXUS [address] [facility] [place] [address] Specialty Senior Linux Administrator Hematology/Oncology 10/01/22 Hydrotherapist Relationship Specialty Start Date End Date Lorenzo Olson DO PCP - General Family Medicine 04/16/13 Sera Forbes, H[employer] Learning Support Aide 09/26/22 Mienrva Anderson MD [address] [facility] [address] [place], [place] [address] Physician Hematology/Oncology 10/01/22 Dania Vásquez MD [address] [facility] [place] [address] Physician Radiation Oncology 10/01/22 Andree Hollis, PICCOLO MECHANIC.BEADING INSTALLER [address] [facility] [place] [address] Nurse Practitioner Hematology/Oncology 10/01/22 Denisha Duarte, RN [address] [facility] [place] [address] Specialty Senior Linux Administrator Hematology/Oncology 10/01/22 Hydrotherapist Relationship Specialty Start Date End Date Lorenzo Olson DO PCP - General Family Medicine 04/16/13 Sera Forbes [facility] Learning Support Aide 09/26/22 Minerva Anderson MD [address] [facility] [place] [address] Physician Hematology/Oncology 10/01/22 Dania Vásquez MD [address] [facility] [place] [address] Physician Radiation Oncology 10/01/22 Andree Hollis, PICCOLO MECHANIC.BEADING INSTALLER [address] [facility] [place] [address] Nurse Practitioner Hematology/Oncology 10/01/22 Denisha Duarte, RN [address] [facility] [place] [address] Specialty Senior Linux Administrator Hematology/Oncology 10/01/22 Hydrotherapist Relationship Specialty Start Date End Date Lorenzo Olson DO PCP - General Family Medicine 04/16/13 Sera Fobres LSW Learning Support Aide 09/26/22 Minerva Anderson MD [address] [facility] [address] [place], [place] [address]70 Physician Hematology/Oncology 10/01/22 Dania Vásquez MD [address] [facility] [address] [place], [place] [address]33870 Physician Radiation Oncology 10/01/22 Andree Hollis, PICCOLO MECHANIC.BEADING INSTALLER [address] [facility] [place] [address] Nurse Practitioner Hematology/Oncology 10/01/22 Denisha Duarte, ALEXUS [address] [facility] [place] [address] Specialty Senior Linux Administrator Hematology/Oncology 10/01/22 Hydrotherapist Relationship Specialty Start Date End Date Lorenzo Olson DO PCP - General Family Medicine 04/16/13 Sera Forbes LSW Learning Support Aide 09/26/22 Minerva Anderson MD [address] [facility] [place] [address] Physician Hematology/Oncology 10/01/22 Dania Vásquez MD [address] [facility] [place] [address] Physician Radiation Oncology 10/01/22 Andree Hollis, PICCOLO MECHANIC.BEADING INSTALLER [address] [facility] [place] [address] Nurse Practitioner Hematology/Oncology 10/01/22 Denisha Duarte, RN [address] [facility] [place] [address] Specialty Senior Linux Administrator Hematology/Oncology 10/01/22 Hydrotherapist Relationship Specialty Start Date End Date Lorenzo Olson DO PCP - General Family Medicine 04/16/13 Sera Forbes, HAT BRIM CURLER Learning Support Aide 09/26/22 Minerva Anderson MD [address] [facility] [address] [place], [place] [id number] Physician Hematology/Oncology 10/01/22 Dania Vásquez MD [address] [facility] [address] [place], [place] 5695270 Physician Radiation Oncology 10/01/22 Andree Hollis, PICCOLO MECHANIC.BEADING INSTALLER [address] [facility] [place] [address] Nurse Practitioner Hematology/Oncology 10/01/22 Denisha Duarte, ALEXUS [address] [facility] [place] [address] Specialty Senior Linux Administrator Hematology/Oncology 10/01/22 Hydrotherapist Relationship Specialty Start Date End Date Lorenzo Olson DO PCP - General Family Medicine 04/16/13 Sera Forbes, HAT BRIM CURLER Learning Support Aide 09/26/22 Minerva Anderson MD [address] [facility] [place] [address] Physician Hematology/Oncology 10/01/22 Dania Vásquez MD [address] [facility] [address] [place], [place] [address]70 Physician Radiation Oncology 10/01/22 Andree Hollis, PICCOLO MECHANIC.BEADING INSTALLER [address] [facility] [place] [address] Nurse Practitioner Hematology/Oncology 10/01/22 Denisha Duarte, ALEXUS [address] [place] [address] Specialty Senior Linux Administrator Hematology/Oncology 10/01/22 Hydrotherapist Relationship Specialty Start Date End Date Lorenzo Olson DO PCP - General Family Medicine 04/16/13 Sera Forbes, HAT BRIM CURLER Learning Support Aide 09/26/22 Minerva Anderson MD [address] [facility] [place] [address] Physician Hematology/Oncology 10/01/22 Dania Vásquez MD [address] [facility] [place] [address] Physician Radiation Oncology 10/01/22 Andree Hollis, PICCOLO MECHANIC.BEADING INSTALLER [address] [facility] [place] [address] Nurse Practitioner Hematology/Oncology 10/01/22 Denisha Duarte, ALEXUS [address] [facility] [place] [address] Specialty Senior Linux Administrator Hematology/Oncology 10/01/22 Hydrotherapist Relationship Specialty Start Date End Date Lorenzo Olson DO PCP - General Family Medicine 04/16/13 Sera Forbes, [facility] Learning Support Aide 09/26/22 Minerva Anderson MD [address] [facility] [place] [address] Physician Hematology/Oncology 10/01/22 Dania Vásquez MD [address] [facility] [place] [address] Physician Radiation Oncology 10/01/22 Andree Hollis, PICCOLO MECHANIC.BEADING INSTALLER [address] [facility] [place] [address] Nurse Practitioner Hematology/Oncology 10/01/22 Denisha Duarte, ALEXUS [address] [facility] [place] [address] Specialty Senior Linux Administrator Hematology/Oncology 10/01/22 Hydrotherapist Relationship Specialty Start Date End Date Lorenzo Olson DO PCP - General Family Medicine 04/16/13 Sera Forbes, [facility] Learning Support Aide 09/26/22 Minerva Anderson MD [address] [facility] [address] [place], [place] [address] Physician Hematology/Oncology 10/01/22 Dania Vásquez MD [address] [facility] [place] [address] Physician Radiation Oncology 10/01/22 Andree Hollis, PICCOLO MECHANIC.BEADING INSTALLER [address] [facility] [place] [address] Nurse Practitioner Hematology/Oncology 10/01/22 Denisha Duarte, ALEXUS [address] [facility] [place] [address] Specialty Senior Linux Administrator Hematology/Oncology 10/01/22 Hydrotherapist Relationship Specialty Start Date End Date Lorenzo Olson DO PCP - General Family Medicine 04/16/13 Sera Forbes, [facility] Learning Support Aide 09/26/22 Minerva Anderson MD [address] [facility] [place] [address] Physician Hematology/Oncology 10/01/22 Dania Vásquez MD [address] [facility] [place] [address] Physician Radiation Oncology 10/01/22 Andree Hollis, PICCOLO MECHANIC.BEADING INSTALLER [address] [facility] [place] [address] Nurse Practitioner Hematology/Oncology 10/01/22 Denisha Duarte, ALEXUS [address] [facility] [address] [place], [place] [address]20270 Specialty Senior Linux Administrator Hematology/Oncology 10/01/22 Hydrotherapist Relationship Specialty Start Date End Date Lorenzo Olson DO PCP - General Family Medicine 04/16/13 Sera Forbes, [facility] Learning Support Aide 09/26/22 Minerva Anderson MD [address] [facility] [place] [address] Physician Hematology/Oncology 10/01/22 Dania Vásquez MD [address] [place] [address] [place] [address] Physician Radiation Oncology 10/01/22 Andree Hollis, AZAEL.BEADING INSTALLER [address] [facility] [place] [address] Nurse Practitioner Hematology/Oncology 10/01/22 Denisha Duarte, ALEXUS [address] [facility] [address] [place], [place] [address]70 Specialty Senior Linux Administrator Hematology/Oncology 10/01/22 Hydrotherapist Relationship Specialty Start Date End Date Lorenzo Olson DO PCP - General Family Medicine 04/16/13 Sera Forbes, [facility] Learning Support Aide 09/26/22 Minerva Anderson MD [address] [facility] [place] [address] Physician Hematology/Oncology 10/01/22 Dania Vásquez MD [address] [facility] [place] [address] Physician Radiation Oncology 10/01/22 Andree Hollis, PICCOLO MECHANIC.BEADING INSTALLER [address] [facility] [place] [address] Nurse Practitioner Hematology/Oncology 10/01/22 Denisha Duarte, RN [address] [facility] [place] [address] Specialty Senior Linux Administrator Hematology/Oncology 10/01/22 Hydrotherapist Relationship Specialty Start Date End Date Lorenzo Olson DO PCP - General Family Medicine 04/16/13 Sera Forbes LSW Learning Support Aide 09/26/22 Minerva Anderson MD [address] [facility] [address] [place], [place] [address] Physician Hematology/Oncology 10/01/22 Dania Vásquez MD [address] [facility] [place] [address] Physician Radiation Oncology 10/01/22 Andree Hollis, PICCOLO MECHANIC.BEADING INSTALLER [address] [facility] [place] [address] Nurse Practitioner Hematology/Oncology 10/01/22 Denisha Duarte, RN [address] [facility] [place] [address] Specialty Senior Linux Administrator Hematology/Oncology 10/01/22 Hydrotherapist Relationship Specialty Start Date End Date Lorenzo Olson DO PCP - General Family Medicine 04/16/13 Sera Forbes LSW Learning Support Aide 09/26/22 Minerva Anderson MD [address] [facility] [place] [address] Physician Hematology/Oncology 10/01/22 Dania áVsquez MD [address] [facility] [address] [place], [place] [address] Physician Radiation Oncology 10/01/22 Andree Hollis, PICCOLO MECHANIC.BEADING INSTALLER [address] [facility] [place] [address] Nurse Practitioner Hematology/Oncology 10/01/22 Denisha Duarte, ALEXUS [address] [facility] [place] [address] Specialty Senior Linux Administrator Hematology/Oncology 10/01/22 Hydrotherapist Relationship Specialty Start Date End Date Lorenzo Olson DO PCP - General Family Medicine 04/16/13 Sera Forbes, [facility] Learning Support Aide 09/26/22 Minerva Anderson MD [address] [facility] [place] [address] Physician Hematology/Oncology 10/01/22 Dania Vásquez MD [address] [facility] [place] [address] Physician Radiation Oncology 10/01/22 Andree Hollis, PICCOLO MECHANIC.BEADING INSTALLER [address] [facility] [place] [address] Nurse Practitioner Hematology/Oncology 10/01/22 Denisha Duarte, ALEXUS [address] [facility] [place] [address] Specialty Senior Linux Administrator Hematology/Oncology 10/01/22 Hydrotherapist Relationship Specialty Start Date End Date Lorenzo Olson DO PCP - General Family Medicine 04/16/13 Sera Forbes LSW Learning Support Aide 09/26/22 Minerva Anderson MD [address] [facility] [place] [address] Physician Hematology/Oncology 10/01/22 Dania Vásquez MD [address] [facility] [place] [address] Physician Radiation Oncology 10/01/22 Andree Hollis, PICCOLO MECHANIC.BEADING INSTALLER [address] [facility] [place] [address] Nurse Practitioner Hematology/Oncology 10/01/22 Denisha Duarte, RN [address] [facility] [place] [address] Specialty Senior Linux Administrator Hematology/Oncology 10/01/22 Hydrotherapist Relationship Specialty Start Date End Date Lorenzo Olson DO PCP - General Family Medicine 04/16/13 Sera Forbes LSW Learning Support Aide 09/26/22 Minerva Anderson MD [address] [facility] [address] [place], [place] [id number] Physician Hematology/Oncology 10/01/22 Dania Vásquez MD [address] [facility] [place] [address] Physician Radiation Oncology 10/01/22 Andree Hollis, PICCOLO MECHANIC.BEADING INSTALLER [address] [facility] [place] [address] Nurse Practitioner Hematology/Oncology 10/01/22 Denisha Duarte, RN [address] [facility] [place] [address] Specialty Senior Linux Administrator Hematology/Oncology 10/01/22 Hydrotherapist Relationship Specialty Start Date End Date Lorenzo Olson DO PCP - General Family Medicine 04/16/13 Sera Forbes LSW Learning Support Aide 09/26/22 Minerva Anderson MD [address] [facility] [place] [address] Physician Hematology/Oncology 10/01/22 Dania Vásquez MD [address] [facility] [place] [address] Physician Radiation Oncology 10/01/22 Andree Hollis, PICCOLO MECHANIC.[facility] [address] [facility] [place] [address] Nurse Practitioner Hematology/Oncology 10/01/22 Denisha Duarte, ALEXUS [address] [facility] [place] [address] Specialty Senior Linux Administrator Hematology/Oncology 10/01/22 Chelsie Ríos, RN Specialty Senior Linux Administrator Colon and Rectal Surgery 02/18/23 02/19/28 Hydrotherapist Relationship Specialty Start Date End Date Lorenzo Olson DO PCP - General Family Medicine 04/16/13 Sera Forbes LSW Learning Support Aide 09/26/22 Minerva Anderson MD [address] [facility] [place] [address] Physician Hematology/Oncology 10/01/22 Dania Vásquez MD [address] [facility] [place] [address] Physician Radiation Oncology 10/01/22 Andree Hollis, PICCOLO MECHANIC.[facility] [address] [facility] [place] [address] Nurse Practitioner Hematology/Oncology 10/01/22 Denisha Duarte, ALEXUS [address] [facility] [place] [address] Specialty Senior Linux Administrator Hematology/Oncology 10/01/22 Chelsie Ríos, RN Specialty Senior Linux Administrator Colon and Rectal Surgery 02/18/23 02/19/28 Hydrotherapist Relationship Specialty Start Date End Date Lorenzo Olson DO PCP - General Family Medicine 04/16/13 Sera Forbes LSW Learning Support Aide 09/26/22 Minerva Anderson MD [address] [facility] [place] [address] Physician Hematology/Oncology 10/01/22 Dania Vásquez MD [address] [facility] [place] [address] Physician Radiation Oncology 10/01/22 Andree Hollis, PICCOLO MECHANIC.BEADING INSTALLER [address] [facility] [place] [address] Nurse Practitioner Hematology/Oncology 10/01/22 Denisha Duarte, ALEXUS [address] [place] [address] Specialty Senior Linux Administrator Hematology/Oncology 10/01/22 Chelsie Ríos RN Specialty Senior Linux Administrator Colon and Rectal Surgery 02/18/23 02/19/28 Hydrotherapist Relationship Specialty Start Date End Date Tomas Lorenzosaba Dailey DO PCP - General Family Medicine 04/16/13 Sera Forbes [facility] Learning Support Aide 09/26/22 Minerva Anderson MD [address] [facility] [place] [address] Physician Hematology/Oncology 10/01/22 Dania Vásquez MD [address] [facility] [place] [address] Physician Radiation Oncology 10/01/22 Andree Hollis, PICCOLO MECHANIC.BEADING INSTALLER [address] [facility] [place] [address] Nurse Practitioner Hematology/Oncology 10/01/22 Denisha Duarte, ALEXUS [address] [facility] [place] [address] Specialty Senior Linux Administrator Hematology/Oncology 10/01/22 Chelsie Ríos, RN Specialty Senior Linux Administrator Colon and Rectal Surgery 02/18/23 02/19/28 Hydrotherapist Relationship Specialty Start Date End Date Lorenzo Olson DO PCP - General Family Medicine 04/16/13 Sera Forbes [employer] Learning Support Aide 09/26/22 Minerva Anderson MD [address] [place] [address] [place] [address] Physician Hematology/Oncology 10/01/22 Dania Vásquez MD [address] [place] [address] [place] [address] Physician Radiation Oncology 10/01/22 Andree Hollis, AZAEL.[address] [place], [place] [id number] Nurse Practitioner Hematology/Oncology 10/01/22 Denisha Duarte, ALEXUS [address] [place] [address] [place] [address] Specialty Senior Linux Administrator Hematology/Oncology 10/01/22 Chelsie Ríos, RN Specialty Senior Linux Administrator Colon and Rectal Surgery 02/18/23 02/19/28 Hydrotherapist Relationship Specialty Start Date End Date Lorenzo Olson DO PCP - General Family Medicine 04/16/13 Sera Forbes LSW Learning Support Aide 09/26/22 Minerva Anderson MD [address] [place] [address] [place] [address] Physician Hematology/Oncology 10/01/22 Dania Vásquez MD [address] [place] [address] [place] [address] Physician Radiation Oncology 10/01/22 Andree Hollis, PICCOLO MECHANIC.BEADING INSTALLER [address] [facility] [place] [address] Nurse Practitioner Hematology/Oncology 10/01/22 Denisha Duarte, ALEXUS [address] [facility] [place] [address] Specialty Senior Linux Administrator Hematology/Oncology 10/01/22 Chelsie Ríos, RN Specialty Senior Linux Administrator Colon and Rectal Surgery 02/18/23 02/19/28 Hydrotherapist Relationship Specialty Start Date End Date Lorenzo Olson DO PCP - General Family Medicine 04/16/13 Sera Forbes, HAT BRIM CURLER Learning Support Aide 09/26/22 Minerva Anderson MD [address] [facility] [place] [address] Physician Hematology/Oncology 10/01/22 Dania Vásquez MD [address] [facility] [place] [address] Physician Radiation Oncology 10/01/22 Andree Hollis, PICCOLO MECHANIC.BEADING INSTALLER [address] [facility] [place] [address] Nurse Practitioner Hematology/Oncology 10/01/22 Denisha Duarte, ALEXUS [address] [facility] [place] [address] Specialty Senior Linux Administrator Hematology/Oncology 10/01/22 Chelsie Ríos, RN Specialty Senior Linux Administrator Colon and Rectal Surgery 02/18/23 02/19/28 Hydrotherapist Relationship Specialty Start Date End Date Lorenzo Olson DO PCP - General Family Medicine 04/16/13 Sera Forbes, HAT BRIM CURLER Learning Support Aide 09/26/22 Minerva Anderson MD [address] [facility] [address] [facility] [address] [place], [place] [id number] Physician Hematology/Oncology 10/01/22 Dania Vásquez MD [address] [facility] [place] [address] Physician Radiation Oncology 10/01/22 Andree Hollis, PICCOLO MECHANIC.[facility] [address] [facility] [place] [address] Nurse Practitioner Hematology/Oncology 10/01/22 Denisha Duarte, ALEXUS [address] [place] [address] [place] [address] Specialty Senior Linux Administrator Hematology/Oncology 10/01/22 Chelsie Ríos, RN Specialty Senior Linux Administrator Colon and Rectal Surgery 02/18/23 02/19/28 Hydrotherapist Relationship Specialty Start Date End Date Lorenzo Olson DO PCP - General Family Medicine 04/16/13 Sera Forbes LSW Learning Support Aide 09/26/22 Minerva Anderson MD [address] [facility] [place] [address] Physician Hematology/Oncology 10/01/22 Dania Vásquez MD [address] [facility] [place] [address] Physician Radiation Oncology 10/01/22 Andree Hollis, PICCOLO MECHANIC.[facility] [address] [facility] [place] [address] Nurse Practitioner Hematology/Oncology 10/01/22 Denisha Duarte, ALEXUS [address] [facility] [place] [address] Specialty Senior Linux Administrator Hematology/Oncology 10/01/22 Chelsie Ríos, RN Specialty Senior Linux Administrator Colon and Rectal Surgery 02/18/23 02/19/28 Hydrotherapist Relationship Specialty Start Date End Date Lorenzo OlsonDO PCP - General Family Medicine 04/16/13 Sera Forbes LSW Learning Support Aide 09/26/22 Minerva Anderson MD [address] [facility] [place] [address] Physician Hematology/Oncology 10/01/22 Dania Vásquez MD [address] [facility] [address] [facility] [address] [place], [place] [address] Physician Radiation Oncology 10/01/22 Andree Hollis, PICCOLO MECHANIC.BEADING INSTALLER [address] [facility] [place] [address] Nurse Practitioner Hematology/Oncology 10/01/22 Denisha Duarte, ALEXUS [address] [facility] [place] [address] Specialty Senior Linux Administrator Hematology/Oncology 10/01/22 Chelsie Ríos RN Specialty Senior Linux Administrator Colon and Rectal Surgery 02/18/23 02/19/28 Hydrotherapist Relationship Specialty Start Date End Date Tomas Lorenzo AsimDO PCP - General Family Medicine 04/16/13 Sera Forbes [employer] Learning Support Aide 09/26/22 Minerva Anderson MD [address] [facility] [place] [address] Physician Hematology/Oncology 10/01/22 Dania Vásquez MD [address] [facility] [place] [address] Physician Radiation Oncology 10/01/22 Andree Hollis, PICCOLO MECHANIC.BEADING INSTALLER [address] [facility] [place] [address] Nurse Practitioner Hematology/Oncology 10/01/22 Denisha Duarte, RN [address] [facility] [place] [address] Specialty Senior Linux Administrator Hematology/Oncology 10/01/22 Chelsie Ríos, RN Specialty Senior Linux Administrator Colon and Rectal Surgery 02/18/23 02/19/28 Hydrotherapist Relationship Specialty Start Date End Date Lorenzo Olson DO PCP - General Family Medicine 04/16/13 Sera Forbes LSW Learning Support Aide 09/26/22 Minerva Anderson MD [address] [place] [address] [place], [place] [id number] Physician Hematology/Oncology 10/01/22 Dania Vásquez MD [address] [place] [address] [place], [place] [id number] Physician Radiation Oncology 10/01/22 Andree Hollis, AZAEL.BEADING INSTALLER [address] [place] [address] [place], [place] [id number] Nurse Practitioner Hematology/Oncology 10/01/22 Denisha Duarte, ALEXUS [address] [place] [address] [place], [place] [id number] Specialty Senior Linux Administrator Hematology/Oncology 10/01/22 Chelsie Ríos, RN Specialty Senior Linux Administrator Colon and Rectal Surgery 02/18/23 02/19/28 Hydrotherapist Relationship Specialty Start Date End Date Lorenzo Olson DO PCP - General Family Medicine 04/16/13 Sera Forbes LSW Learning Support Aide 09/26/22 Minerva Anderson MD [address] [place] [address] [place] [address] Physician Hematology/Oncology 10/01/22 Dania Vásquez MD [address] [place] [address] [place] [address] Physician Radiation Oncology 10/01/22 Andree Hollis, PICCOLO MECHANIC.BEADING INSTALLER [address] [facility] [place] [address] Nurse Practitioner Hematology/Oncology 10/01/22 Denisha Duarte, ALEXUS [address] [facility] [place] [address] Specialty Senior Linux Administrator Hematology/Oncology 10/01/22 Chelsie Ríos, RN Specialty Senior Linux Administrator Colon and Rectal Surgery 02/18/23 02/19/28 Hydrotherapist Relationship Specialty Start Date End Date Lorenzo Olson DO PCP - General Family Medicine 04/16/13 Sera Forbes LSW Learning Support Aide 09/26/22 Minerva Anderson MD [address] [facility] [place] [address] Physician Hematology/Oncology 10/01/22 Dania Vásquez MD [address] [facility] [place] [address] Physician Radiation Oncology 10/01/22 Andree Hollis, PICCOLO MECHANIC.BEADING INSTALLER [address] [facility] [place] [address] Nurse Practitioner Hematology/Oncology 10/01/22 Denisha Duarte, ALEXUS [address] [facility] [place] [address] Specialty Senior Linux Administrator Hematology/Oncology 10/01/22 Chelsie Ríos, RN Specialty Senior Linux Administrator Colon and Rectal Surgery 02/18/23 02/19/28 Hydrotherapist Relationship Specialty Start Date End Date Lorenzo Olson DO PCP - General Family Medicine 04/16/13 Sera Forbes LSW Learning Support Aide 09/26/22 Minerva Anderson MD [address] [place] [address] [place] [address] Physician Hematology/Oncology 10/01/22 Dania Vásquez MD [address] [place] [address] [place] [address] Physician Radiation Oncology 10/01/22 Andree Hollis, PICCOLO MECHANIC.BEADING INSTALLER [address] [place] [address] [place] [address] Nurse Practitioner Hematology/Oncology 10/01/22 Denisha Duarte, ALEXUS [address] [place] [address] [place] [address] Specialty Senior Linux Administrator Hematology/Oncology 10/01/22 Chelsie Ríos RN Specialty Senior Linux Administrator Colon and Rectal Surgery 02/18/23 02/19/28 Hydrotherapist Relationship Specialty Start Date End Date Lorenzo Olson DO PCP - General Family Medicine 04/16/13 Sera Forbes LSW Learning Support Aide 09/26/22 Minerva Anderson MD [address] [place] [address] [place] [address] Physician Hematology/Oncology 10/01/22 Dania Vásquez MD [address] [place] [address] [place] [address] Physician Radiation Oncology 10/01/22 Andree Hollis, PICCOLO MECHANIC.BEADING INSTALLER [address] [place] [address] [place] [address] Nurse Practitioner Hematology/Oncology 10/01/22 Denisha Duarte, ALEXUS [address] [facility] [place] [address] Specialty Senior Linux Administrator Hematology/Oncology 10/01/22 Chelsie Ríos, RN Specialty Senior Linux Administrator Colon and Rectal Surgery 02/18/23 02/19/28 Hydrotherapist Relationship Specialty Start Date End Date Lorenzo Olson DO PCP - General Family Medicine 04/16/13 Sera Forbes LSW Learning Support Aide 09/26/22 Minerva Anderson MD [address] [place] [address] [place] [address] Physician Hematology/Oncology 10/01/22 Dania Vásquez MD [address] [place] [address] [place] [address] Physician Radiation Oncology 10/01/22 Andree Hollis APRN.BEADING INSTALLER [address] [place] [address] [place] [address] Nurse Practitioner Hematology/Oncology 10/01/22 Denisha Duarte, ALEXUS [address] [facility] [place] [address] Specialty Senior Linux Administrator Hematology/Oncology 10/01/22 Chelsie Ríos, RN Specialty Senior Linux Administrator Colon and Rectal Surgery 02/18/23 02/19/28 Hydrotherapist Relationship Specialty Start Date End Date Lorenzo Olson DO PCP - General Family Medicine 04/16/13 Sera Forbes LSW Learning Support Aide 09/26/22 Minerva Anderson MD [address] [facility] [place] [address] Physician Hematology/Oncology 10/01/22 Dania Vásquez MD [address] [place] [address] [place] [address] Physician Radiation Oncology 10/01/22 Andree Hollis APRN.BEADING INSTALLER [address] [place] [address] [place] [address] Nurse Practitioner Hematology/Oncology 10/01/22 Denisha Duarte, ALEXUS [address] [facility] [place] [address] Specialty Senior Linux Administrator Hematology/Oncology 10/01/22 Chelsie Ríos, RN Specialty Senior Linux Administrator Colon and Rectal Surgery 02/18/23 02/19/28 Hydrotherapist Relationship Specialty Start Date End Date Lorenzo Olson DO PCP - General Family Medicine 04/16/13 Sera Forbes LSW Learning Support Aide 09/26/22 Minerva Anderson MD [address] [place] [address] [place] [address] Physician Hematology/Oncology 10/01/22 Dania Vásquez MD [address] [place] [address] [place] [address] Physician Radiation Oncology 10/01/22 Andree Hollis, PICCOLO MECHANIC.BEADING INSTALLER [address] [place] [address] [place] [address] Nurse Practitioner Hematology/Oncology 10/01/22 Denisha Duarte, ALEXUS [address] [facility] [place] [address] Specialty Senior Linux Administrator Hematology/Oncology 10/01/22 Chelsie Ríos RN Specialty Senior Linux Administrator Colon and Rectal Surgery 02/18/23 02/19/28 Hydrotherapist Relationship Specialty Start Date End Date Lorenzo Olson DO PCP - General Family Medicine 04/16/13 Sera Forbes LSW Learning Support Aide 09/26/22 Minerva Anderson MD [address] [facility] [address] [place], [place] [address] Physician Hematology/Oncology 10/01/22 Dania Vásquez MD [address] [facility] [place] [address] Physician Radiation Oncology 10/01/22 Andree Hollis, AZAEL.BEADING INSTALLER [address] [facility] [address] [place], [place] 1148070 Nurse Practitioner Hematology/Oncology 10/01/22 Denisha Duarte, ALEXUS [address] [facility] [address] [place], [place] 0672470 Specialty Senior Linux Administrator Hematology/Oncology 10/01/22 Chelsie Ríos, ALEXUS Specialty Senior Linux Administrator Colon and Rectal Surgery 02/18/23 02/19/28 Hydrotherapist Relationship Specialty Start Date End Date Lorenzo Olsno DO PCP - General Family Medicine 04/16/13 Sera Forbes [employer] Learning Support Aide 09/26/22 Minerva Anderson MD [address] [facility] [place] [address] Physician Hematology/Oncology 10/01/22 Dania Vásquez MD [address] [facility] [place] [address] Physician Radiation Oncology 10/01/22 Andree Hollis, PICCOLO MECHANIC.BEADING INSTALLER [address] [place] [address] [place] [address] Nurse Practitioner Hematology/Oncology 10/01/22 Denisha Duarte, ALEXUS [address] [facility] [place] [address] Specialty Senior Linux Administrator Hematology/Oncology 10/01/22 Chelsie Ríos, RN Specialty Senior Linux Administrator Colon and Rectal Surgery 02/18/23 02/19/28 Hydrotherapist Relationship Specialty Start Date End Date Lorenzo Olson DO PCP - General Family Medicine 04/16/13 Sera Forbes LSW Learning Support Aide 09/26/22 Minerva Anderson MD [address] [place] [address] [place] [address] Physician Hematology/Oncology 10/01/22 Dania Vásquez MD [address] [place] [address] [place] [address] Physician Radiation Oncology 10/01/22 Andree Hollis, PICCOLO MECHANIC.BEADING INSTALLER [address] [place] [address] [place] [address] Nurse Practitioner Hematology/Oncology 10/01/22 Denisha Duarte, ALEXUS [address] [facility] [place] [address] Specialty Senior Linux Administrator Hematology/Oncology 10/01/22 Chelsie Ríos, RN Specialty Senior Linux Administrator Colon and Rectal Surgery 02/18/23 02/19/28 Hydrotherapist Relationship Specialty Start Date End Date Lorenzo Olson DO PCP - General Family Medicine 04/16/13 Sera Forbes LSW Learning Support Aide 09/26/22 Minerva Anderson MD [address] [facility] [place] [address] Physician Hematology/Oncology 10/01/22 Dania Vásquez MD [address] [facility] [place] [address] Physician Radiation Oncology 10/01/22 Andree Hollis, PICCOLO MECHANIC.BEADING INSTALLER [address] [facility] [place] [address] Nurse Practitioner Hematology/Oncology 10/01/22 Denisha Duarte, ALEXUS [address] [facility] [place] [address] Specialty Senior Linux Administrator Hematology/Oncology 10/01/22 Chelsie Ríos RN Specialty Senior Linux Administrator Colon and Rectal Surgery 02/18/23 02/19/28 Hydrotherapist Relationship Specialty Start Date End Date Lorenzo Olson DO PCP - General Family Medicine 04/16/13 Sera Forbes [facility] Learning Support Aide 09/26/22 Minerva Anderson MD [address] [facility] [place] [address] Physician Hematology/Oncology 10/01/22 Dania Vásquez MD [address] [facility] [place] [address] Physician Radiation Oncology 10/01/22 Andree Hollis, PICCOLO MECHANIC.BEADING INSTALLER [address] [facility] [place] [address] Nurse Practitioner Hematology/Oncology 10/01/22 Denisha Duarte, ALEXUS [address] [facility] [place] [address] Specialty Senior Linux Administrator Hematology/Oncology 10/01/22 Chelsie Ríos, RN Specialty Senior Linux Administrator Colon and Rectal Surgery 02/18/23 02/19/28 Hydrotherapist Relationship Specialty Start Date End Date Lorenzo Olson DO PCP - General Family Medicine 04/16/13 Sera Forbes LSW Learning Support Aide 09/26/22 Minerva Anderson MD [address] [facility] [place] [address] Physician Hematology/Oncology 10/01/22 Dania Vásquez MD [address] [facility] [place] [address] Physician Radiation Oncology 10/01/22 Andree Hollis APRN.BEADING INSTALLER [address] [facility] [place] [address] Nurse Practitioner Hematology/Oncology 10/01/22 Denisha Duarte, ALEXUS [address] [facility] [place] [address] Specialty Senior Linux Administrator Hematology/Oncology 10/01/22 Chelsie íRos, RN Specialty Senior Linux Administrator Colon and Rectal Surgery 02/18/23 02/19/28 Hydrotherapist Relationship Specialty Start Date End Date Lorenzo Olson DO PCP - General Family Medicine 04/16/13 Sera Forbes LSW Learning Support Aide 09/26/22 Minerva Anderson MD [address] [facility] [place] [address] Physician Hematology/Oncology 10/01/22 Dania Vásquez MD [address] [place] [address] [place] [address] Physician Radiation Oncology 10/01/22 Andree Hollis APRN.BEADING INSTALLER [address] [facility] [place] [address] Nurse Practitioner Hematology/Oncology 10/01/22 Denisha Duarte, ALEXUS [address] [facility] [place] [address] Specialty Senior Linux Administrator Hematology/Oncology 10/01/22 Chelsie Ríos RN Specialty Senior Linux Administrator Colon and Rectal Surgery 02/18/23 02/19/28 Hydrotherapist Relationship Specialty Start Date End Date Lorenzo Olson DO PCP - General Family Medicine 04/16/13 Sera Forbes LSW Learning Support Aide 09/26/22 Minerva Anderson MD [address] [place] [address] [place] [address] Physician Hematology/Oncology 10/01/22 Dania Vásquez MD [address] [place] [address] [place] [address] Physician Radiation Oncology 10/01/22 Andree Hollis APRN.BEADING INSTALLER [address] [facility] [place] [address] Nurse Practitioner Hematology/Oncology 10/01/22 Denisha Duarte, ALEXUS [address] [facility] [place] [address] Specialty Senior Linux Administrator Hematology/Oncology 10/01/22 Chelsie Ríos, RN Specialty Senior Linux Administrator Colon and Rectal Surgery 02/18/23 02/19/28 Hydrotherapist Relationship Specialty Start Date End Date Lorenzo Olson DO PCP - General Family Medicine 04/16/13 Sera Forbes LSW Learning Support Aide 09/26/22 Minerva Anderson MD [address] [facility] [place] [address] Physician Hematology/Oncology 10/01/22 Dania Vásquez MD [address] [facility] [place] [address] Physician Radiation Oncology 10/01/22 Andree Hollis APRN.[facility] [address] [facility] [place] [address] Nurse Practitioner Hematology/Oncology 10/01/22 Denisha Duarte, ALEXUS [address] [facility] [place] [address] Specialty Senior Linux Administrator Hematology/Oncology 10/01/22 Chelsie Ríos, RN Specialty Senior Linux Administrator Colon and Rectal Surgery 02/18/23 02/19/28 Hydrotherapist Relationship Specialty Start Date End Date Lorenzo Olson DO PCP - General Family Medicine 04/16/13 Sera Forbes LSW Learning Support Aide 09/26/22 Minerva Anderson MD [address] [facility] [place] [address] Physician Hematology/Oncology 10/01/22 Dania Vásquez MD [address] [facility] [place] [address] Physician Radiation Oncology 10/01/22 Andree Hollis, PICCOLO MECHANIC.BEADING INSTALLER [address] [place] [address] [place] [address] Nurse Practitioner Hematology/Oncology 10/01/22 Denisha Duarte, ALEXUS [address] [place] [address] [place] [address] Specialty Senior Linux Administrator Hematology/Oncology 10/01/22 Chelsie Ríos, RN Specialty Senior Linux Administrator Colon and Rectal Surgery 02/18/23 02/19/28 Hydrotherapist Relationship Specialty Start Date End Date Lorenzo Olson DO PCP - General Family Medicine 04/16/13 Sera Forbes LSW Learning Support Aide 09/26/22 Minerva Anderson MD [address] [place] [address] [place] [address] Physician Hematology/Oncology 10/01/22 Dania Vásquez MD [address] [place] [address] [place] [address] Physician Radiation Oncology 10/01/22 Andree Hollis, [employer]ICCOL[employer] MECH[employer]IC.BEADING INSTALLER [address] [place] [address] [place] [address] Nurse Practitioner Hematology/Oncology 10/01/22 Denisha Duarte, ALEXUS [address] [place] [address] [place] [address] Specialty Senior Linux Administrator Hematology/Oncology 10/01/22 Chelsie Ríos, RN Specialty Senior Linux Administrator Colon and Rectal Surgery 02/18/23 02/19/28 Hydrotherapist Relationship Specialty Start Date End Date Lorenzo Olson DO PCP - General Family Medicine 04/16/13 Sera Forbes LSW Learning Support Aide 09/26/22 Minerva Anderson MD [address] [facility] [place] [address] Physician Hematology/Oncology 10/01/22 Dania Vásquez MD [address] [facility] [place] [address] Physician Radiation Oncology 10/01/22 Andree Hollis, PICCOLO MECHANIC.BEADING INSTALLER [address] [facility] [place] [address] Nurse Practitioner Hematology/Oncology 10/01/22 Denisha Duarte, ALEXUS [address] [facility] [place] [address] Specialty Senior Linux Administrator Hematology/Oncology 10/01/22 Chelsie Ríos, ALEXSU Specialty Senior Linux Administrator Colon and Rectal Surgery 02/18/23 02/19/28 Hydrotherapist Relationship Specialty Start Date End Date Tomas Lorenzo DaileyDO PCP - General Family Medicine 04/16/13 Sera Forbes LSW Learning Support Aide 09/26/22 Minerva Anderson MD [address] [facility] [place] [address] Physician Hematology/Oncology 10/01/22 Dania Vásquez MD [address] [facility] [place] [address] Physician Radiation Oncology 10/01/22 Andree Hollis, PICCOLO MECHANIC.BEADING INSTALLER [address] [facility] [place] [address] Nurse Practitioner Hematology/Oncology 10/01/22 Denisha Duarte, ALEXUS [address] [place] [address] [place] [address] Specialty Senior Linux Administrator Hematology/Oncology 10/01/22 Chelsie Ríos, RN Specialty Senior Linux Administrator Colon and Rectal Surgery 02/18/23 02/19/28 Hydrotherapist Relationship Specialty Start Date End Date Lorenzo Olson DO PCP - General Family Medicine 04/16/13 Sera Forbes LSW Learning Support Aide 09/26/22 Minerva Anderson MD [address] [place] [address] [place] [address] Physician Hematology/Oncology 10/01/22 Dania Vásquez MD [address] [place] [address] [place] [address] Physician Radiation Oncology 10/01/22 Andree Hollis APRN.BEADING INSTALLER [address] [place] [address] [place] [address] Nurse Practitioner Hematology/Oncology 10/01/22 Denisha Duarte, ALEUXS [address] [facility] [place] [address] Specialty Senior Linux Administrator Hematology/Oncology 10/01/22 Chelsie Ríos, RN Specialty Senior Linux Administrator Colon and Rectal Surgery 02/18/23 02/19/28 Hydrotherapist Relationship Specialty Start Date End Date Lorenzo Olson DO PCP - General Family Medicine 04/16/13 Sera Forbes LSW Learning Support Aide 09/26/22 Minerva Anderson MD [address] [place] [address] [place] [address] Physician Hematology/Oncology 10/01/22 Dania Vásquez MD [address] [place] [address] [place] [address] Physician Radiation Oncology 10/01/22 Andree Hollis APRN.[facility] [address] [place] [address] [address] [place], [place] [id number] Nurse Practitioner Hematology/Oncology 10/01/22 Denisha Duarte, ALEXUS [address] [place] [address] [place], [place] [id number] Specialty Senior Linux Administrator Hematology/Oncology 10/01/22 Chelsie Ríos RN Specialty Senior Linux Administrator Colon and Rectal Surgery 02/18/23 02/19/28 Source Comments (unrecognize d section and content) In the event this informatio n is protected by the Federal Confidentiality of Alcohol and Drug Abuse Patient Records regulations: The Federal rules restrict any use of the information to criminally investigate or prosecute any alcohol or drug abuse patient.[facility] the event this information is protected by the Federal Confidentiality of Alcohol and Drug Abuse Patient Records regulations: The Federal rules restrict any use of the information to criminally investigate or prosecute any alcohol or drug abuse patient.[facility] HospitalIn the event this information is protected by the Federal Confidentiality of Alcohol and Drug Abuse Patient Records regulations: The Federal rules restrict any use of the information to criminally investigate or prosecute any alcohol or drug abuse patient.[facility] HospitalIn the event this information is protected by the Federal Confidentiality of Alcohol and Drug Abuse Patient Records regulations: The Federal rules restrict any use of the information to criminally investigate or prosecute any alcohol or drug abuse patient.[facility] HospitalIn the event this information is protected by the Federal Confidentiality of Alcohol and Drug Abuse Patient Records regulations: The Federal rules restrict any use of the information to criminally investigate or prosecute any alcohol or drug abuse patient.[facility] HospitalIn the event this information is protected by the Federal Confidentiality of Alcohol and Drug Abuse Patient Records regulations: The Federal rules restrict any use of the information to criminally investigate or prosecute any alcohol or drug abuse patient.[facility] HospitalIn the event this information is protected by the Federal Confidentiality of Alcohol and Drug Abuse Patient Records regulations: The Federal rules restrict any use of the information to criminally investigate or prosecute any alcohol or drug abuse patient.[facility] HospitalIn the event this information is protected by the Federal Confidentiality of Alcohol and Drug Abuse Patient Records regulations: The Federal rules restrict any use of the information to criminally investigate or prosecute any alcohol or drug abuse patient.[facility] HospitalIn the event this information is protected by the Federal Confidentiality of Alcohol and Drug Abuse Patient Records regulations: The Federal rules restrict any use of the information to criminally investigate or prosecute any alcohol or drug abuse patient.[facility] HospitalIn the event this information is protected by the Federal Confidentiality of Alcohol and Drug Abuse Patient Records regulations: The Federal rules restrict any use of the information to criminally investigate or prosecute any alcohol or drug abuse patient.[facility] HospitalIn the event this information is protected by the Federal Confidentiality of Alcohol and Drug Abuse Patient Records regulations: The Federal rules restrict any use of the information to criminally investigate or prosecute any alcohol or drug abuse patient.[facility] HospitalIn the event this information is protected by the Federal Confidentiality of Alcohol and Drug Abuse Patient Records regulations: The Federal rules restrict any use of the information to criminally investigate or prosecute any alcohol or drug abuse patient.[facility] HospitalIn the event this information is protected by the Federal Confidentiality of Alcohol and Drug Abuse Patient Records regulations: The Federal rules restrict any use of the information to criminally investigate or prosecute any alcohol or drug abuse patient.[facility] HospitalIn the event this information is protected by the Federal Confidentiality of Alcohol and Drug Abuse Patient Records regulations: The Federal rules restrict any use of the information to criminally investigate or prosecute any alcohol or drug abuse patient.[facility] HospitalIn the event this information is protected by the Federal Confidentiality of Alcohol and Drug Abuse Patient Records regulations: The Federal rules restrict any use of the information to criminally investigate or prosecute any alcohol or drug abuse patient.[facility] HospitalIn the event this information is protected by the Federal Confidentiality of Alcohol and Drug Abuse Patient Records regulations: The Federal rules restrict any use of the information to criminally investigate or prosecute any alcohol or drug abuse patient.[facility] HospitalIn the event this information is protected by the Federal Confidentiality of Alcohol and Drug Abuse Patient Records regulations: The Federal rules restrict any use of the information to criminally investigate or prosecute any alcohol or drug abuse patient.[facility] HospitalIn the event this information is protected by the Federal Confidentiality of Alcohol and Drug Abuse Patient Records regulations: The Federal rules restrict any use of the information to criminally investigate or prosecute any alcohol or drug abuse patient.[facility] HospitalIn the event this information is protected by the Federal Confidentiality of Alcohol and Drug Abuse Patient Records regulations: The Federal rules restrict any use of the information to criminally investigate or prosecute any alcohol or drug abuse patient.[facility] HospitalIn the event this information is protected by the Federal Confidentiality of Alcohol and Drug Abuse Patient Records regulations: The Federal rules restrict any use of the information to criminally investigate or prosecute any alcohol or drug abuse patient.[facility] HospitalIn the event this information is protected by the Federal Confidentiality of Alcohol and Drug Abuse Patient Records regulations: The Federal rules restrict any use of the information to criminally investigate or prosecute any alcohol or drug abuse patient.[facility] HospitalIn the event this information is protected by the Federal Confidentiality of Alcohol and Drug Abuse Patient Records regulations: The Federal rules restrict any use of the information to criminally investigate or prosecute any alcohol or drug abuse patient.[facility] HospitalIn the event this information is protected by the Federal Confidentiality of Alcohol and Drug Abuse Patient Records regulations: The Federal rules restrict any use of the information to criminally investigate or prosecute any alcohol or drug abuse patient.[facility] HospitalIn the event this information is protected by the Federal Confidentiality of Alcohol and Drug Abuse Patient Records regulations: The Federal rules restrict any use of the information to criminally investigate or prosecute any alcohol or drug abuse patient.[facility] HospitalIn the event this information is protected by the Federal Confidentiality of Alcohol and Drug Abuse Patient Records regulations: The Federal rules restrict any use of the information to criminally investigate or prosecute any alcohol or drug abuse patient.[facility] HospitalIn the event this information is protected by the Federal Confidentiality of Alcohol and Drug Abuse Patient Records regulations: The Federal rules restrict any use of the information to criminally investigate or prosecute any alcohol or drug abuse patient.[facility] HospitalIn the event this information is protected by the Federal Confidentiality of Alcohol and Drug Abuse Patient Records regulations: The Federal rules restrict any use of the information to criminally investigate or prosecute any alcohol or drug abuse patient.[facility] HospitalIn the event this information is protected by the Federal Confidentiality of Alcohol and Drug Abuse Patient Records regulations: The Federal rules restrict any use of the information to criminally investigate or prosecute any alcohol or drug abuse patient.[facility] HospitalIn the event this information is protected by the Federal Confidentiality of Alcohol and Drug Abuse Patient Records regulations: The Federal rules restrict any use of the information to criminally investigate or prosecute any alcohol or drug abuse patient.[facility] HospitalIn the event this information is protected by the Federal Confidentiality of Alcohol and Drug Abuse Patient Records regulations: The Federal rules restrict any use of the information to criminally investigate or prosecute any alcohol or drug abuse patient.[facility] HospitalIn the event this information is protected by the Federal Confidentiality of Alcohol and Drug Abuse Patient Records regulations: The Federal rules restrict any use of the information to criminally investigate or prosecute any alcohol or drug abuse patient.[facility] HospitalIn the event this information is protected by the Federal Confidentiality of Alcohol and Drug Abuse Patient Records regulations: The Federal rules restrict any use of the information to criminally investigate or prosecute any alcohol or drug abuse patient.[facility] HospitalIn the event this information is protected by the Federal Confidentiality of Alcohol and Drug Abuse Patient Records regulations: The Federal rules restrict any use of the information to criminally investigate or prosecute any alcohol or drug abuse patient.[facility] HospitalIn the event this information is protected by the Federal Confidentiality of Alcohol and Drug Abuse Patient Records regulations: The Federal rules restrict any use of the information to criminally investigate or prosecute any alcohol or drug abuse patient.[facility] HospitalIn the event this information is protected by the Federal Confidentiality of Alcohol and Drug Abuse Patient Records regulations: The Federal rules restrict any use of the information to criminally investigate or prosecute any alcohol or drug abuse patient.[facility] HospitalIn the event this information is protected by the Federal Confidentiality of Alcohol and Drug Abuse Patient Records regulations: The Federal rules restrict any use of the information to criminally investigate or prosecute any alcohol or drug abuse patient.[facility] HospitalIn the event this information is protected by the Federal Confidentiality of Alcohol and Drug Abuse Patient Records regulations: The Federal rules restrict any use of the information to criminally investigate or prosecute any alcohol or drug abuse patient.[facility] HospitalIn the event this information is protected by the Federal Confidentiality of Alcohol and Drug Abuse Patient Records regulations: The Federal rules restrict any use of the information to criminally investigate or prosecute any alcohol or drug abuse patient.[facility] HospitalIn the event this information is protected by the Federal Confidentiality of Alcohol and Drug Abuse Patient Records regulations: The Federal rules restrict any use of the information to criminally investigate or prosecute any alcohol or drug abuse patient.[facility] HospitalIn the event this information is protected by the Federal Confidentiality of Alcohol and Drug Abuse Patient Records regulations: The Federal rules restrict any use of the information to criminally investigate or prosecute any alcohol or drug abuse patient.[facility] HospitalIn the event this information is protected by the Federal Confidentiality of Alcohol and Drug Abuse Patient Records regulations: The Federal rules restrict any use of the information to criminally investigate or prosecute any alcohol or drug abuse patient.[facility] HospitalIn the event this information is protected by the Federal Confidentiality of Alcohol and Drug Abuse Patient Records regulations: The Federal rules restrict any use of the information to criminally investigate or prosecute any alcohol or drug abuse patient.[facility] HospitalIn the event this information is protected by the Federal Confidentiality of Alcohol and Drug Abuse Patient Records regulations: The Federal rules restrict any use of the information to criminally investigate or prosecute any alcohol or drug abuse patient.[facility] HospitalIn the event this information is protected by the Federal Confidentiality of Alcohol and Drug Abuse Patient Records regulations: The Federal rules restrict any use of the information to criminally investigate or prosecute any alcohol or drug abuse patient.[facility] HospitalIn the event this information is protected by the Federal Confidentiality of Alcohol and Drug Abuse Patient Records regulations: The Federal rules restrict any use of the information to criminally investigate or prosecute any alcohol or drug abuse patient.[facility] HospitalIn the event this information is protected by the Federal Confidentiality of Alcohol and Drug Abuse Patient Records regulations: The Federal rules restrict any use of the information to criminally investigate or prosecute any alcohol or drug abuse patient.[facility] HospitalIn the event this information is protected by the Federal Confidentiality of Alcohol and Drug Abuse Patient Records regulations: The Federal rules restrict any use of the information to criminally investigate or prosecute any alcohol or drug abuse patient.[facility] HospitalIn the event this information is protected by the Federal Confidentiality of Alcohol and Drug Abuse Patient Records regulations: The Federal rules restrict any use of the information to criminally investigate or prosecute any alcohol or drug abuse patient.[facility] HospitalIn the event this information is protected by the Federal Confidentiality of Alcohol and Drug Abuse Patient Records regulations: The Federal rules restrict any use of the information to criminally investigate or prosecute any alcohol or drug abuse patient.[facility] HospitalIn the event this information is protected by the Federal Confidentiality of Alcohol and Drug Abuse Patient Records regulations: The Federal rules restrict any use of the information to criminally investigate or prosecute any alcohol or drug abuse patient.[facility] HospitalIn the event this information is protected by the Federal Confidentiality of Alcohol and Drug Abuse Patient Records regulations: The Federal rules restrict any use of the information to criminally investigate or prosecute any alcohol or drug abuse patient.[facility] HospitalIn the event this information is protected by the Federal Confidentiality of Alcohol and Drug Abuse Patient Records regulations: The Federal rules restrict any use of the information to criminally investigate or prosecute any alcohol or drug abuse patient.[facility] HospitalIn the event this information is protected by the Federal Confidentiality of Alcohol and Drug Abuse Patient Records regulations: The Federal rules restrict any use of the information to criminally investigate or prosecute any alcohol or drug abuse patient.[facility] HospitalIn the event this information is protected by the Federal Confidentiality of Alcohol and Drug Abuse Patient Records regulations: The Federal rules restrict any use of the information to criminally investigate or prosecute any alcohol or drug abuse patient.[facility] HospitalIn the event this information is protected by the Federal Confidentiality of Alcohol and Drug Abuse Patient Records regulations: The Federal rules restrict any use of the information to criminally investigate or prosecute any alcohol or drug abuse patient.[facility] HospitalIn the event this information is protected by the Federal Confidentiality of Alcohol and Drug Abuse Patient Records regulations: The Federal rules restrict any use of the information to criminally investigate or prosecute any alcohol or drug abuse patient.[facility] HospitalIn the event this information is protected by the Federal Confidentiality of Alcohol and Drug Abuse Patient Records regulations: The Federal rules restrict any use of the information to criminally investigate or prosecute any alcohol or drug abuse patient.[facility] HospitalIn the event this information is protected by the Federal Confidentiality of Alcohol and Drug Abuse Patient Records regulations: The Federal rules restrict any use of the information to criminally investigate or prosecute any alcohol or drug abuse patient.[facility] HospitalIn the event this information is protected by the Federal Confidentiality of Alcohol and Drug Abuse Patient Records regulations: The Federal rules restrict any use of the information to criminally investigate or prosecute any alcohol or drug abuse patient.[facility] HospitalIn the event this information is protected by the Federal Confidentiality of Alcohol and Drug Abuse Patient Records regulations: The Federal rules restrict any use of the information to criminally investigate or prosecute any alcohol or drug abuse patient.[facility] HospitalIn the event this information is protected by the Federal Confidentiality of Alcohol and Drug Abuse Patient Records regulations: The Federal rules restrict any use of the information to criminally investigate or prosecute any alcohol or drug abuse patient.[facility] HospitalIn the event this information is protected by the Federal Confidentiality of Alcohol and Drug Abuse Patient Records regulations: The Federal rules restrict any use of the information to criminally investigate or prosecute any alcohol or drug abuse patient.[facility] HospitalIn the event this information is protected by the Federal Confidentiality of Alcohol and Drug Abuse Patient Records regulations: The Federal rules restrict any use of the information to criminally investigate or prosecute any alcohol or drug abuse patient.[facility] HospitalIn the event this information is protected by the Federal Confidentiality of Alcohol and Drug Abuse Patient Records regulations: The Federal rules restrict any use of the information to criminally investigate or prosecute any alcohol or drug abuse patient.[facility] HospitalIn the event this information is protected by the Federal Confidentiality of Alcohol and Drug Abuse Patient Records regulations: The Federal rules restrict any use of the information to criminally investigate or prosecute any alcohol or drug abuse patient.[facility] HospitalIn the event this information is protected by the Federal Confidentiality of Alcohol and Drug Abuse Patient Records regulations: The Federal rules restrict any use of the information to criminally investigate or prosecute any alcohol or drug abuse patient.[facility] HospitalIn the event this information is protected by the Federal Confidentiality of Alcohol and Drug Abuse Patient Records regulations: The Federal rules restrict any use of the information to criminally investigate or prosecute any alcohol or drug abuse patient.[facility] HospitalIn the event this information is protected by the Federal Confidentiality of Alcohol and Drug Abuse Patient Records regulations: The Federal rules restrict any use of the information to criminally investigate or prosecute any alcohol or drug abuse patient.[facility] HospitalIn the event this information is protected by the Federal Confidentiality of Alcohol and Drug Abuse Patient Records regulations: The Federal rules restrict any use of the information to criminally investigate or prosecute any alcohol or drug abuse patient.[facility] HospitalIn the event this information is protected by the Federal Confidentiality of Alcohol and Drug Abuse Patient Records regulations: The Federal rules restrict any use of the information to criminally investigate or prosecute any alcohol or drug abuse patient.[facility] HospitalIn the event this information is protected by the Federal Confidentiality of Alcohol and Drug Abuse Patient Records regulations: The Federal rules restrict any use of the information to criminally investigate or prosecute any alcohol or drug abuse patient.[facility] HospitalIn the event this information is protected by the Federal Confidentiality of Alcohol and Drug Abuse Patient Records regulations: The Federal rules restrict any use of the information to criminally investigate or prosecute any alcohol or drug abuse patient.[facility] HospitalIn the event this information is protected by the Federal Confidentiality of Alcohol and Drug Abuse Patient Records regulations: The Federal rules restrict any use of the information to criminally investigate or prosecute any alcohol or drug abuse patient.[facility] HospitalIn the event this information is protected by the Federal Confidentiality of Alcohol and Drug Abuse Patient Records regulations: The Federal rules restrict any use of the information to criminally investigate or prosecute any alcohol or drug abuse patient.[facility] HospitalIn the event this information is protected by the Federal Confidentiality of Alcohol and Drug Abuse Patient Records regulations: The Federal rules restrict any use of the information to criminally investigate or prosecute any alcohol or drug abuse patient.[facility] HospitalIn the event this information is protected by the Federal Confidentiality of Alcohol and Drug Abuse Patient Records regulations: The Federal rules restrict any use of the information to criminally investigate or prosecute any alcohol or drug abuse patient.[facility] HospitalIn the event this information is protected by the Federal Confidentiality of Alcohol and Drug Abuse Patient Records regulations: The Federal rules restrict any use of the information to criminally investigate or prosecute any alcohol or drug abuse patient.[facility] HospitalIn the event this information is protected by the Federal Confidentiality of Alcohol and Drug Abuse Patient Records regulations: The Federal rules restrict any use of the information to criminally investigate or prosecute any alcohol or drug abuse patient.[facility] HospitalIn the event this information is protected by the Federal Confidentiality of Alcohol and Drug Abuse Patient Records regulations: The Federal rules restrict any use of the information to criminally investigate or prosecute any alcohol or drug abuse patient.[facility] HospitalIn the event this information is protected by the Federal Confidentiality of Alcohol and Drug Abuse Patient Records regulations: The Federal rules restrict any use of the information to criminally investigate or prosecute any alcohol or drug abuse patient.[facility] HospitalIn the event this information is protected by the Federal Confidentiality of Alcohol and Drug Abuse Patient Records regulations: The Federal rules restrict any use of the information to criminally investigate or prosecute any alcohol or drug abuse patient.[facility] HospitalIn the event this information is protected by the Federal Confidentiality of Alcohol and Drug Abuse Patient Records regulations: The Federal rules restrict any use of the information to criminally investigate or prosecute any alcohol or drug abuse patient.[facility] HospitalIn the event this information is protected by the Federal Confidentiality of Alcohol and Drug Abuse Patient Records regulations: The Federal rules restrict any use of the information to criminally investigate or prosecute any alcohol or drug abuse patient.[facility] HospitalIn the event this information is protected by the Federal Confidentiality of Alcohol and Drug Abuse Patient Records regulations: The Federal rules restrict any use of the information to criminally investigate or prosecute any alcohol or drug abuse patient.[facility] HospitalIn the event this information is protected by the Federal Confidentiality of Alcohol and Drug Abuse Patient Records regulations: The Federal rules restrict any use of the information to criminally investigate or prosecute any alcohol or drug abuse patient.[facility] HospitalIn the event this information is protected by the Federal Confidentiality of Alcohol and Drug Abuse Patient Records regulations: The Federal rules restrict any use of the information to criminally investigate or prosecute any alcohol or drug abuse patient.[facility] HospitalIn the event this information is protected by the Federal Confidentiality of Alcohol and Drug Abuse Patient Records regulations: The Federal rules restrict any use of the information to criminally investigate or prosecute any alcohol or drug abuse patient.[facility] HospitalIn the event this information is protected by the Federal Confidentiality of Alcohol and Drug Abuse Patient Records regulations: The Federal rules restrict any use of the information to criminally investigate or prosecute any alcohol or drug abuse patient.[facility] HospitalIn the event this information is protected by the Federal Confidentiality of Alcohol and Drug Abuse Patient Records regulations: The Federal rules restrict any use of the information to criminally investigate or prosecute any alcohol or drug abuse patient.[facility] HospitalIn the event this information is protected by the Federal Confidentiality of Alcohol and Drug Abuse Patient Records regulations: The Federal rules restrict any use of the information to criminally investigate or prosecute any alcohol or drug abuse patient.[facility] HospitalIn the event this information is protected by the Federal Confidentiality of Alcohol and Drug Abuse Patient Records regulations: The Federal rules restrict any use of the information to criminally investigate or prosecute any alcohol or drug abuse patient.[facility] HospitalIn the event this information is protected by the Federal Confidentiality of Alcohol and Drug Abuse Patient Records regulations: The Federal rules restrict any use of the information to criminally investigate or prosecute any alcohol or drug abuse patient.[facility] HospitalIn the event this information is protected by the Federal Confidentiality of Alcohol and Drug Abuse Patient Records regulations: The Federal rules restrict any use of the information to criminally investigate or prosecute any alcohol or drug abuse patient.[facility] HospitalIn the event this information is protected by the Federal Confidentiality of Alcohol and Drug Abuse Patient Records regulations: The Federal rules restrict any use of the information to criminally investigate or prosecute any alcohol or drug abuse patient.[facility] HospitalIn the event this information is protected by the Federal Confidentiality of Alcohol and Drug Abuse Patient Records regulations: The Federal rules restrict any use of the information to criminally investigate or prosecute any alcohol or drug abuse patient.[facility] HospitalIn the event this information is protected by the Federal Confidentiality of Alcohol and Drug Abuse Patient Records regulations: The Federal rules restrict any use of the information to criminally investigate or prosecute any alcohol or drug abuse patient.[facility] HospitalIn the event this information is protected by the Federal Confidentiality of Alcohol and Drug Abuse Patient Records regulations: The Federal rules restrict any use of the information to criminally investigate or prosecute any alcohol or drug abuse patient.[facility] HospitalIn the event this information is protected by the Federal Confidentiality of Alcohol and Drug Abuse Patient Records regulations: The Federal rules restrict any use of the information to criminally investigate or prosecute any alcohol or drug abuse patient.[facility] HospitalIn the event this information is protected by the Federal Confidentiality of Alcohol and Drug Abuse Patient Records regulations: The Federal rules restrict any use of the information to criminally investigate or prosecute any alcohol or drug abuse patient.[facility] HospitalIn the event this information is protected by the Federal Confidentiality of Alcohol and Drug Abuse Patient Records regulations: The Federal rules restrict any use of the information to criminally investigate or prosecute any alcohol or drug abuse patient.[facility] HospitalIn the event this information is protected by the Federal Confidentiality of Alcohol and Drug Abuse Patient Records regulations: The Federal rules restrict any use of the information to criminally investigate or prosecute any alcohol or drug abuse patient.[facility] HospitalIn the event this information is protected by the Federal Confidentiality of Alcohol and Drug Abuse Patient Records regulations: The Federal rules restrict any use of the information to criminally investigate or prosecute any alcohol or drug abuse patient.[facility] HospitalIn the event this information is protected by the Federal Confidentiality of Alcohol and Drug Abuse Patient Records regulations: The Federal rules restrict any use of the information to criminally investigate or prosecute any alcohol or drug abuse patient.[facility] HospitalIn the event this information is protected by the Federal Confidentiality of Alcohol and Drug Abuse Patient Records regulations: The Federal rules restrict any use of the information to criminally investigate or prosecute any alcohol or drug abuse patient.[facility] HospitalIn the event this information is protected by the Federal Confidentiality of Alcohol and Drug Abuse Patient Records regulations: The Federal rules restrict any use of the information to criminally investigate or prosecute any alcohol or drug abuse patient.[facility] HospitalIn the event this information is protected by the Federal Confidentiality of Alcohol and Drug Abuse Patient Records regulations: The Federal rules restrict any use of the information to criminally investigate or prosecute any alcohol or drug abuse patient.[facility] HospitalIn the event this information is protected by the Federal Confidentiality of Alcohol and Drug Abuse Patient Records regulations: The Federal rules restrict any use of the information to criminally investigate or prosecute any alcohol or drug abuse patient.[facility] HospitalIn the event this information is protected by the Federal Confidentiality of Alcohol and Drug Abuse Patient Records regulations: The Federal rules restrict any use of the information to criminally investigate or prosecute any alcohol or drug abuse patient.[facility] HospitalIn the event this information is protected by the Federal Confidentiality of Alcohol and Drug Abuse Patient Records regulations: The Federal rules restrict any use of the information to criminally investigate or prosecute any alcohol or drug abuse patient.[facility] HospitalIn the event this information is protected by the Federal Confidentiality of Alcohol and Drug Abuse Patient Records regulations: The Federal rules restrict any use of the information to criminally investigate or prosecute any alcohol or drug abuse patient.[facility] HospitalIn the event this information is protected by the Federal Confidentiality of Alcohol and Drug Abuse Patient Records regulations: The Federal rules restrict any use of the information to criminally investigate or prosecute any alcohol or drug abuse patient.[facility] HospitalIn the event this information is protected by the Federal Confidentiality of Alcohol and Drug Abuse Patient Records regulations: The Federal rules restrict any use of the information to criminally investigate or prosecute any alcohol or drug abuse patient.[facility] HospitalIn the event this information is protected by the Federal Confidentiality of Alcohol and Drug Abuse Patient Records regulations: The Federal rules restrict any use of the information to criminally investigate or prosecute any alcohol or drug abuse patient.[facility] Reason for Visit (unrecogniz ed section and [...] Diagnoses Rectal cancer (HCC) Minerva Anderson MD [address] [place] [address] [place] [address] Juan Carlos Simon [address] [place] [address] Referral ID Status Reason Start Date Expiration Date V isits Requested Visits Authorized [id number] Authorized 12/17/2022 03/17/2023 99 99 Reason Comments Care Coordination C1D1 treatment follo w up call Specialty Diagnoses / Procedures [facility] To Contact Hematology / HEMATOLOGY/ONCOLOGY Diagnoses lab port chemotx FOLFOX *NEW START CHANGE IN TREATMENT* Procedures LAB/PORT Minerva Anderson MD [address] [place] [address] [place] [address] Juan Carlos Simon [address] [place] [address] Referral ID Status Reason Start Date Expiration Date V isits Requested Visits Authorized [id number] Authorized 12/25/2022 10/20/2023 99 99 Reason Comments Rectal Cancer OTV 2 weeks 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 Reason Comments Care Coordination US Order Reason Onset Date Comments Refill Request 01/23/2023 Reason Comments Care Coordination DVT; Eliquis Reason Comments New Patient Evaluation Rectal Bleeding Specialty Diagnoses / Procedures Referred By Contac t Referred To Contact Gastroenterology Diagnoses Rectal cancer (HCC) Rectal bleeding Procedures CONSULT TO GASTROENTEROLOGY OFFICE/OUTPATIENT NEW HIGH MDM 60-74 MINUTES Andree Hollis, [employer].[facility] [address] [place] [address] Referral ID Status Reason Start Date Expiration Date V isits Requested Visits Authorized [id number] Closed PCP Requested Referral 01/23/2023 01/23/2024 1 1 Reason Comments New Patient Consult for rectal c ancer Reason Comments Rectal Cancer Treatment visit/port draw Reason Comments Medication Assistance Approved for Free Xarelto Reason Comments Patient Question Reason Comments Care Coordination MRI Question Reason Comments Orders Flex sig, CEA, MRI, CT 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 Lab Results; Ne uropathy Reason Comments Port Flush Specialty Diagnoses / Procedures Referred By Contac t Referred To Contact Hematology / HEMATOLOGY/ONCOLOGY Diagnoses lab port chemotx FOLFOX *NEW START CHANGE IN TREATMENT* Procedures LAB/PORT Minerva Anderson MD [address] [place] [address] Juan Carlos Arya [address] [place] [address] Specialty Diagnoses / Procedures [facility] Referred To Contact MR IMAGING Diagnoses Malignant neoplasm of rectum (HCC) Procedures MRI RECTUM WO/W IVCON MRI PELVIS W/O & W/[place] [address] [place] [address] [place] [id number] Referral ID Status Reason Start Date Expiration Date V isits Requested Visits Authorized [id number] Closed Auto-Generate d Referral 05/03/2023 06/01/2024 1 [...] BE BASED ON THE PRIMARY CLINICAL RECORDS. [facility] [employer] [facility]. provides no warranty or guarantee of the accuracy or completeness of information in this document.
[2023-12-30 07:36] VITALS: BP 111/71; PULSE 63; RESP 18; O2SAT 95
[2023-12-30 07:45] VITALS: BP 120/76; PULSE 65; RESP 18; O2SAT 96
[2023-12-30] MEDS: BUPIVACAINE HCL 0.25% PF 25 MG/10 ML VIAL 4 ML INJ (07:46)
[2023-12-30] MEDS: LIDOCAINE HCL 2% 400 MG/20 ML MDV 15 ML INJ (07:47)
[2023-12-30] MEDS: TRIAMCINOLONE ACETONIDE 40 MG/ML VIAL 80 MG INJ (07:47)
--- NOTE | 2023-12-30 07:52 | P.ON_ITS ---
Date of procedure: 12/30/23 Pre-op diagnosis: Lumbar spondylosis Post-op diagnosis: same as pre-op Procedure: Procedure: Bilateral L4-5, L5-S1 radiofrequency ablation Medications: Bupivacaine 0.25% 6cc, lidocaine 2% 5cc, kenalog 80mg The patient was seen and examined in the preoperative holding area.? The site was marked.? Written informed consent was obtained and placed on the chart.? The patient was brought to the medical procedure unit and placed in the prone position.? A timeout was completed verifying correct patient, procedure, positioning, and special requirements.? The skin overlying the target points, the designated medial branch, were prepped and draped in the usual sterile fashion.? The target point was achieved with a 20-gauge 15 cm with a 10 mm curved active tip radiofrequency cannula under direct fluoroscopic visualization.? The needle was inserted at level L4 on the right side. Needle tip position was confirmed with lateral fluoroscopic position.? Motor stimulation was carried out at 2 Hz up to 5 volts with the absence of extremity activity.? This was repeated at level L5, S1 on right side.?? Sensory stimulation was carried out.? Concordant pain was realized at the above- mentioned sites.? Then radiofrequency lesioning was carried out times 90 seconds at 80 degrees times 2 lesions at each level.? The radiofrequency probe was removed prior to cannula removal.? The above-mentioned injectate was placed in 1 mL increments.? The needle was removed. The same procedure, with the same steps, was then completed on the left side at the same levels. Insertion sites were covered.? The patient was taken to the postoperative recovery area and monitored for an appropriate length of time before being found suitable for discharge in the company of a responsible adult. Anesthesia: Local Surgeon: Abhinav Mazariegos Pathology: none sent Condition: stable Disposition: no change
== END 2023-12-30 07:56 | disposition home or self-care (01) ==
LOC: SURGOUT 06:48
PROVIDERS: PCP Family Medicine; Visit Provider Anesthesiology
DX: M47.816 Spondylosis without myelopathy or radiculopathy, lumbar region (principal)
CPT/HCPCS: 64635; 64636

== ENCOUNTER 2024-01-29 09:23 | Outpatient (OUT) | payer MEDICARE, OTHER, SELFPAY ==
--- NOTE | 2024-01-29 09:36 | P.CN_ITS ---
Consult Note: HPI Data of Consult Patient: known to practice within the last 3 years Consult date: 11/21/23 Requesting Physician: Ml Antony NP Primary Care Provider: LORENZO OLSON Consult Narrative Reason for consult: f/u Narrative: Eron Damon a pleasant 73 year old male presents for evaluation and manage ment of chronic low back pain unresponsive to PT/HEP, conservative medications. Has completed bilateral L4/5 L5/S1 facet medial branch thermal RFA with moderate ongoing improvement. Patient was previously reporting 100% improvement in low back pain until 1 week ago. Patient has been out of baclofen and previously found benefit to it. TOday pain 2/10 sharp intermittent increased with activity sleep and upon wakening, notices improvement as the day goes on and with stretching. Patient denies numbness tingling weakness loss of bowel or bladder cc:: CC: Ml Antony NP Review of Systems ROS Status of ROS 10 or more systems reviewed and unremark able except as noted in history and below Musculoskeletal Reports: back pain PFSH PFSH Medical History (Updated 01/29/24 @ 09:55 by Ml Antony NP) Fusion of spine, cervical region ?M43.22 - Fusion of spine, cervical region (ICD-10) Rectal cancer ?C20 - Malignant neoplasm of rectum (ICD-10) Rheumatoid arthritis ?M06.9 - Rheumatoid arthritis, unspecified (ICD-10) Pulmonary emboli ?I26.99 - Other pulmonary embolism without acute cor pulmonale (ICD-10) Surgical History H/O cervical spine surgery ?Z98.890 - Other specified postprocedural states (ICD-10) H/O foot surgery ?Z98.890 - Other specified postprocedural states (ICD-10) Meds Home Medications and Allergies Home Medications ?Medication ?Instructions ?Recorded ?Confirmed ?Type ascorbic acid (vitamin C) 500 mg 500 mg PO DAILY 10/30/23 12/10/23 History chewable tablet (Acerola C) calcium 600 mg capsule mg PO 10/30/23 History carvedilol 6.25 mg tablet 6.25 mg PO BID 10/30/23 12/30/23 History finasteride 5 mg tablet 5 mg PO DAILY 10/30/23 12/30/23 History glucosamine sulfate 500 mg tablet 500 mg PO DAILY 10/30/23 12/30/23 History (Glucosamine) prednisone 5 mg tablet 5 mg PO DAILY 10/30/23 12/30/23 History rivaroxaban 10 mg tablet (Xarelto) 10 mg PO DAILY 10/30/23 12/30/23 History tamsulosin 0.4 mg capsule 0.4 mg PO DAILY 10/30/23 12/30/23 History valsartan 80 mg tablet 80 mg PO DAILY 10/30/23 12/30/23 History Allergies Allergy/AdvReac Type Severity Reaction Status Date / Time No Known Drug Allergies Allergy Verified 12/30/23 06:58 Exam Constitutional Documenting provider has reviewed patient's vital signs: yes Common normals: no apparent distress, oriented x3, healthy appearing, alert and well nourished General appearance: cooperative HENMT Common normals: normocephalic, hearing grossly normal bilaterally and moist oral mucous membranes Head and scalp: normocephalic Eye Common normals: PERRL Pupil: PERRL Neck & C-Spine Common normals: full ROM General: normal visual inspection Chest Common normals: inspection of chest normal Respiratory Common normals: normal respiratory effort, no retractions and no use of accessory muscles Back & Pelvis Lumbar spine/lower back: ROM limited, pain with ROM and straight leg raise negative bilaterally Sacroiliac joints: SI joints normal Other: axial low back pain mildly positive facet loading negative radiculopathy Extremity Common normals: normal to inspection and full ROM Neuro Common normals: oriented x3, CN's II-XII intact bilaterally, moves all extremities, no focal motor deficits, no sensory deficits noted and deep tendon reflexes 2+ bilaterally Sensorium/orientation: alert Motor exam: strength 5/5 throughout and no movement abnormalities noted Psych Common normals: mental status grossly normal, thought process normal, cooperative, affect normal, speech normal and activity/motor behavior normal Speech: normal speech Thought process: normal thought process Results Additional Findings Additional findings: If on a controlled substance or opioids, I have checked an [place] report on this patient and there are no aberrancies noted in the prescribing history.??If on a controlled substance or opioid a drug screen was completed and reviewed within the last year, and if there has not been a drug screen completed we ordered one today to monitor higher risk, state monitored pain medication use. As part of providing excellent, safe, comprehensive care, the following was completed at our patient's visit: 1. A medication reconciliation and review to ensure accurate knowledge of current/active medications, including asking our patients to inform us about any [id number] medications or herbal remedies/nutritional supplements/alternative remedies. 2. A review to specifically ensure our patients have had annual screening for screening for depression, screening for tobacco use, and screening for unhealthy alcohol use. For concerning screenings had a discussion with the patient, provided patient education, and recommended follow-up with primary care provider when appropriate. If patient noted with a risk of falling, they received education on strength, gait, and balance training to prevent future risk of falling. Assessment and Plan Assessment and Plan (1) Lumbar spondylosis: Assessment and Plan: The patient has had over 3 months of moderate to severe low back pain with functional impairment and inadequate response to conservative care including NSAIDS (unless there are contraindication such as concurrent blood thinners), multiple oral or topical pain medications, and home exercise program/physical therapy.? Patient has completed >6 weeks of guided home exercise program and/or formal physical therapy program without relief of their symptoms.? I have reviewed the imaging of the lumbar and no red flags were identified.? The imaging reveals radiographic findings consistent with lumbar spondylosis (2) Myofascial pain: Plan refill and continue baclofen 5-10mg BID PRN myofascial pain continue HEP as tolerated 2 week f/u with nurse, I suspect patient will improve after restarting his muscle relaxer
== END 2024-01-29 09:24 | disposition home or self-care (01) ==
LOC: PM 09:23
PROVIDERS: PCP Family Medicine; Visit Provider Nurse Practitioner
DX: M47.816 Spondylosis without myelopathy or radiculopathy, lumbar region (principal); M79.18 Myalgia, other site
CPT/HCPCS: G0463

== ENCOUNTER 2025-07-29 07:49 | Outpatient (OUT) | payer MEDICARE, OTHER, SELFPAY ==
--- OUTSIDE RECORDS SUMMARY | 2025-07-29 08:15 | XMS_ITS | CCD ---
Author Organization [facility] Care Team Providers Care Universal Grinder Set Up Operator Name Role Phone SONAM ZAMBRANO Consulting Unavailable PAWANANDER, LINK Attending Unavailable PAWANANDER, LINK Admitting Unavailable TOMAS, DR LORENZO Dailey Primary Care Unavailable TOMAS, DR LORENZO Dailey Primary Care Unavailable DINORAH, DR SHANTEL Casillas Consulting Unavailable HIGHLANDER, LINK Attending Unavailable HIGHLANDER, LINK Admitting Unavailable HIGHLANDER, LINK Consulting Unavailable TON, JOHANA Consulting Unavailable ERICA, CESAR Consulting Unavailable SAMANTHA, LAKSHMI Consulting Unavailable PAWANANDER, LINK Attending Unavailable DAMASO, DR DEBORAH Jack Consulting Unavailable HIGHLANDER, LINK Admitting Unavailable HIGHLANDER, LINK Consulting Unavailable TOMAS, DR LORENZO Dailey Primary Care Unavailable ISACC, LINK Attending Unavailable ISACC, LINK Consulting Unavailable ISACC, LINK Admitting Unavailable Lorenzo MARIN Primary Care Physician Lucy Bhatti Unavailable Unavailable Christie Lemus Unavailable Unavailable Lorenzo Marin DO Primary Care Provider Lorenzo Marin DO Primary Care Provider Sera Welch Unavailable Unavailable THALIA TROY Referring Unavailable THALIA TROY Attending Unavailable THALIA TROY Attending Unavailable THALIA TROY Referring Unavailable DO Lorenzo Marin Primary Care Provider MD Minerva Anderson Attending Provider [phone] Minerva Anderson MD Unavailable Dania Key MD Unavailable [phone] Wild COMMUNICATIONS SCIENTIST.CHAINSTITCH ZIPPER SETTER, Andree Unavailable Gerald VAUGHAN, Denisha Unavailable Michoacano VAUGHAN, Chelsie Dahl Unavailable Unavailable Valencia Webster Unavailable Tomas, Lorenzo Dailey Primary Care Provider JM Webster Attending Provider DEBORAH NORMAN Referring Unavailable LORENZO MARIN Primary Care Unavailable Tomas HERNANDEZ, Lorenzo Dailey Primary Care Provider Gerald VAUGHAN, Denisha Unavailable Chelsie Kolb RN Unavailable Unavailable Lorenzo MARIN Primary Care Physician [phone] Tomas, Lorenzo Dailey Primary Care Provider JM Webster Attending Provider Lorenzo Marin Primary Care Unavailable Valencia Webster Admitting Unavailable Valencia Webster Attending Unavailable Lorenzo Marin Primary Care Unavailable Minerva Anderson Admitting Unavailable Minerva Anderson Attending Unavailable Valencia Webster Admitting Unavailable Valencia Webster Attending Unavailable Tomas, Lorenzo Dailey Primary Care Unavailable Valencia Webster Admitting Unavailable Valencia Webster Attending Unavailable Lorenzo Marin Primary Care Unavailable Delilah ARRINGTON, Abhinav Veronica Attending Unavailable Tomas , Lorenzo Dailey Primary Care Provider Yuridia Houser Attending Unavailable Gerald VAUGHAN, Denisha Unavailable MINERVA ANDERSON Admitting Unavailable MINERVA ANDERSON Attending Unavailable GOPALAMBROSIOA, K V Admitting Unavailable GOPALAMBROSIOA, K V Attending Unavailable Tomas HERNANDEZ, Lorenzo Dailey Primary Care Provider Tomas ARRINGTON Lorenzo Primary Care Provider MINERVA ANDERSON Attending Unavailable MINERVA ANDERSON Admitting Unavailable DANIEL WERNER Admitting Unavailable DANIEL WERNER Attending Unavailable Micky Cueto Attending Unavailable LORENZO MARIN Primary Care Unavailable VALERIE ROBERTS Referring Unavailable LORENZO MARIN Primary Care Unavailable SHANNON GRAHAM Referring Unavailable LORENZO MARIN Primary Care Unavailable NEGAR PINEDO Attending Unavailable NEGAR PINEDO Referring Unavailable TOMAS, LORENZO Primary Care Unavailable Corey SINGLETON Attending Unavailable NONE, XXXX Referring Unavailable LUZ Peña Attending Unavailable LUZ Peña Admitting Unavailable Yuridia Houser Attending Unavailable SACHA, K V Attending Unavailable SACHA, K V Admitting Unavailable NONE, XXXX Referring Unavailable Pato Peña Admitting Unavailable Pato Peña Attending Unavailable Micky Cueto Attending Unavailable MINERVA ANDERSON Referring Unavailable TOMAS, LORENZO S Primary Care Unavailable TOMAS, LORENZO S Primary Care Unavailable EMERSON, DEBORAH Admitting Unavailable EMERSON, DEBORAH Attending Unavailable GINA MANRIQUE Consulting Unavailable TOMAS, LORENZO S Primary Care Unavailable EMERSON, DEBORAH Admitting Unavailable EMERSON, DEBORAH Attending Unavailable TOMAS, LORENZO S Primary Care Unavailable TOMAS, LORENZO S Primary Care Unavailable EMERSON, DEBORAH Admitting Unavailable EMERSON, DEBORAH Attending Unavailable BAMBI ADAMES Attending Unavailable TOMAS, LORENZO S Primary Care Unavailable ABDULLAHI, CHELSIE Scruggs Attending Unavailable FERNANDO, CHELSIE Srcuggs Referring Unavailable FERNANDO, CHELSIE Scruggs Attending Unavailable FERNANDO, CHELSIE Scruggs Referring Unavailable BLACKSTON, SHAWN Engle Attending Unavailable FERNANDO, CHELSIE Scruggs Referring Unavailable LAINA MAYORGA Attending Unavailable FERNANDO, CHELSIE Scruggs Referring Unavailable CARRIE LEIGH Attending Unavailable FERNANDO, CHELSIE Scruggs Referring Unavailable BLACKSTON, SHAWN Engle Attending Unavailable FERNANDO, CHELSIE Scruggs Referring Unavailable FERNANDO, CHELSIE Scruggs Attending Unavailable FERNANDO, CHELSIE Scruggs Attending Unavailable FERNANDO, CHELSIE Scruggs Referring Unavailable XIOMARA GRECO Attending Unavailable ABDULLAHI, CHELSIE Scruggs Referring Unavailable Pato Peña Admitting Unavailable Casey, Pato Abraham Attending Unavailable Pato Peña Referring Unavailable MD Jason Galvin Consulting Unavailable Jason Galvin Consulting Unavailable Jason Galvin Consulting Unavailable DANIEL WERNER Admitting Unavailable DANIEL WERNER Attending Unavailable Corrina, Yuridia Walter Attending Unavailable MINERVA ANDERSON Referring Unavailable TOMAS LORENZO S Primary Care Unavailable CARMELINA FUNG Attending Unavailable DEBORAH NORMAN Referring Unavailable TOMAS, LORENZO S Primary Care Unavailable MINERVA ANDERSON Referring Unavailable TOMAS, LORENZO S Primary Care Unavailable MERVAT SOLORZANO Admitting Unavailable MERVAT SOLORZANO Attending Unavailable TOMAS, LORENZO S Primary Care Unavailable PROVIDER, UNKNOWN Admitting Unavailable PROVIDER, UNKNOWN Attending Unavailable TOMAS, LORENZO S Primary Care Unavailable CARMELINA FUNG Attending Unavailable DEBORAH NORMAN Referring Unavailable TOMAS, [facility] Primary Care Unavailable MINERVA ANDERSON Referring Unavailable TOMAS, LORENZO S Primary Care Unavailable DAYANARA SULLIVAN Attending Unavailable DEBORAH NORMAN Referring Unavailable TOMAS, LORENZO S Primary Care Unavailable MINERVA ANDERSON Referring Unavailable TOMAS, LORENZO S Primary Care Unavailable KARI DIAZ Attending Unavailable JUSTIN, MINERVA Referring Unavailable TOMAS, LORENZO S Primary Care Unavailable TOMAS, LORENZO S Primary Care Unavailable CELESTE ANDREWS Referring Unavailable CELESTE ANDREWS Attending Unavailable KARI DIAZ Referring Unavailable TOMAS, LORENZO S Primary Care Unavailable ABHYLUISITO, TARI Referring Unavailable TOMAS, LORENZO S Primary Care Unavailable JUSTIN, MINERVA Referring Unavailable JUSTIN, MINERVA Attending Unavailable TOMAS, LORENZO S Primary Care Unavailable TOMAS, LORENZO S Primary Care Unavailable TOMAS, LORENZO S Primary Care Unavailable JUSTIN, MINERVA Referring Unavailable TOMAS, LORENZO S Primary Care Unavailable JUSTIN, MINERVA Attending Unavailable JUSTIN, MINERVA Referring Unavailable TOMAS, LORENZO S Primary Care Unavailable EMERSON, DEBORAH Referring Unavailable EMERSON, DEBORAH Attending Unavailable EMERSON, DEBORAH Referring Unavailable CELESTE ANDREWS Attending Unavailable TOMAS, LORENZO S Primary Care Unavailable JUSTIN, MINERVA Referring Unavailable TOMAS, LORENZO S Primary Care Unavailable JUSTIN, MINERVA Referring Unavailable JUSTIN, MINERVA Attending Unavailable TOMAS, LORENZO S Primary Care Unavailable JUSTIN, MINERVA Referring Unavailable TOMAS, LORENZO S Primary Care Unavailable JUSTIN, MINERVA Referring Unavailable TARI ENCARNACION Attending Unavailable TOMAS, LORENZO S Primary Care Unavailable CELESTE ANDREWS Referring Unavailable TOMAS, LORENZO S Primary Care Unavailable CELESTE ANDREWS Referring Unavailable TOMAS, LORENZO S Primary Care Unavailable JUSTIN, MINERVA Referring Unavailable TOMAS, LORENZO S Primary Care Unavailable MINERVA ANDERSON Attending Unavailable JUSTIN, MINERVA Referring Unavailable TOMAS, LORENZO S Primary Care Unavailable JUSTIN, MINERVA Referring Unavailable TOMAS, LORENZO S Primary Care Unavailable JUSTIN, MINERVA Referring Unavailable TOMAS, LORENZO S Primary Care Unavailable JUSTIN, MINERVA Referring Unavailable TOMAS, LORENZO S Primary Care Unavailable SHASHANK, TARI Referring Unavailable TOMAS, LORENZO S Primary Care Unavailable Yuridia Houser Attending Unavailable Chandrika Camacho Attending Unavailable Corey SINGLETON Attending Unavailable Orzech, Olivia Jyoti Admitting Unavailable Orzech, Olivia X Attending Unavailable Orzech, Olivia X Referring Unavailable Allergies Allergy Classification Reported Allergen(s) Allergy Type Date of Onset Reaction(s) Facility (6 sources) Penicillin; 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: [penicillin] Drug Allergy [facility] Repository Medications Current Medications Medication Drug Class(es) Dates Sig (Normalized) Sig (Original) acetaminophen 325 mg / HYDROcodone bitartrate 5 mg oral tablet (20 sources) Opioid Agonist Start: 04-02-2023 Argyle 325 mg-5 mg oral tablet 1 tab(s), Oral, q6hr as needed for pain, 10 tab(s), Refill(s) 0, [id number], 188, cm, 04/02/23 10:50:00 EDT, Height/Length Dosing, 100, kg, 04/02/23 10:50:00 EDT, Weight Dosing Start Date: 04/02/23 Status: Ordered Start: 03-18-2023 Argyle 325 mg-5 mg oral tablet 1 tab(s), Oral, q6hr as needed for pain, 10 tab(s), Refill(s) 0, [facility] #[id number], 188, cm, 03/18/23 10:50:00 EDT, Height/Length Dosing, [...] hours as needed for pain. 30 tablet 10/23/2022 07/09/2023 Discontinued Comment on above: Take 1 tablet by blake every 8 hours as needed for pain. acetaminophen 325 mg / oxyCODONE hydrochloride 5 mg oral tablet (20 sources) Opioid Agonist Start: 12-07-2024 End: 01-04-2025 take 1 tablet by mouth every six hours as needed oxyCODONE-acetamino phen (PERCOCET) 5-325 mg tablet Indications: Malignant neoplasm of rectum (HCC) Take 1 tablet by mouth every 6 hours as needed for up to 28 days. 50 tablet 12/07/2024 9:45 AM EST 12/07/2024 01/04/2025 Active Start: 11-07-2022 End: 07-09-2023 take 1 tablet by mouth every six hours as needed for pain oxyCODONE-acetaminophen (PERCOCET) 5-325 mg tablet Indications: Neoplasm related pain (acute) (chronic) Take 1 tablet by mouth every 6 hours as needed for pain. 50 tablet 05/06/2023 07/09/2023 Discontinued Comment on above: Take 1 tablet by blake th every 6 hours as needed for pain. Antiarthritic Combination No.2 (Glucosamine-Chondroitin) 900 mg tablet (1 source) Start: 12-19-2023 Antiarthritic Combination No.2 (Glucosamine-Chondroitin) 900 mg tablet Active MG PO December 19, 2023 1:00am ascorbic acid 500 mg oral capsule (20 sources) Vitamin C Start: 12-19-2023 Ascorbic Acid (Vitamin C) 500 mg capsule Active CAP PO As Directed December 19, 2023 1:00am FreeTextSig: as directed Orally; Note: Source Status: Taking; Provider: Darin Birmingham ( ) Start: 10-22-2019 take 1000 mg by mout h once daily Vitamin C 1,000 mg, Oral, Daily, Refills(s) 0, Prophylaxis Start Date: 10/22/19 Status: Ordered Repeat number: 1 take 1 tablet by blake th twice daily Ascorbic Acid 100 mg tablet Take 100 mg by mouth twice daily. Active take 1 tablet by blake th once daily Ascorbic Acid 100 mg tablet Take 100 mg by mouth once daily. 0 Active Comment on above: Take 100 mg by mouth once daily. Take 100 mg by mouth twice daily. Azithromycin (16 sources) Macrolide Antimicrobial Start: 10-09-2023 azithromycin 250 [...] tablet daily for 4 days. 6 tablet 09/24/2022 10/02/2022 Discontinued Comment on above: Take two (2) tablets by mouth the first day and then one (1) tablet daily for 4 days. Take by mouth. benzoyl peroxide 50 mg/ml topical solution (5 sources) Start: 07-20-2024 benzoyl peroxide 5 % external wash Indications: Bacterial folliculitis Lather on scalp then rinse well daily, 90 day supply 681 g 3 07/20/2024 Active Start: 07-14-2024 benzoyl peroxi de 5 % external wash Indications: Bacterial folliculitis Lather on scalp then rinse well daily, 30 day supply 227 g 11 07/14/2024 Active Start: 07-14-2024 benzoyl peroxi de 5 % external wash Indications: Bacterial folliculitis Lather on scalp then rinse well daily, 30 day supply 227 g 11 07/14/2024 Active calcium carbonate 1500 mg oral tablet (20 sources) Start: 12-19-2023 take 1 tablet by mouth twice daily at mealtime Calcium Carbonate 600 mg calcium (1,500 mg) tablet Active 1 TAB PO Twice daily December 19, 2023 1:00am FreeTextSi tablet with meals Orally Twice a day; Note: Source Status: Taking; Provider: Darin Birmingham ( ) take 1 tablet by mouth once opal y calcium carbonate (CALCIUM 600 ORAL) Take 1 tablet by mouth once daily. Suspended take 1 tablet by mouth once opal y calcium carbonate (CALCIUM 600 ORAL) Take 1 tablet by mouth once daily. Active take 1 tablet by blake th every twelve hours Calcium 600 MG 1 tablet with meals Orall y Twice a day Active take 1 tablet by mouth once opal y calcium carbonate (CALCIUM 600 ORAL) Take 1 tablet by mouth once daily. 0 Active Comment on above: Take 1 tablet by blake th once daily. carvedilol 6.25 mg oral tablet (20 sources) alpha-Adrenergic Taina, beta-Adrenergic Taina Start: 09-10-2024 take 1 tablet by mouth twice daily carvedilol 6.25 mg Tab 6.25 mg = 1 tab(s), Oral, BID, # 180 tab(s), Refills(s) 3, Pharmacy: [facility], 188, cm, 09/10/24 8:15:00 EST, Height/Length Dosing, 104, kg, 09/10/24 8:15:00 EST, Weight Dosing Start Date: 09/10/24 Status: Ordered Quantity: 180.0 Unit: tab(s) Repeat number: 4 Start: 06-26-2022 take 1 tablet by blake th in the morning carvedilol (Coreg) 6.25 MG tablet Take 6.25 mg by mouth in the morning and 6.25 mg in the evening. Take with meals. 06/26/2022 Active Start: 08-12-2020 End: 06-21-2023 take 1 tablet by mouth twice daily at mealtime carvedilol (COREG) 6.25 mg tablet Take 6.25 mg by mouth twice daily with meals. 09/03/2022 Active Comment on above: Take 6.25 mg by mout h once daily. Take 6.25 mg by mout h twice daily with meals. Chondroitin Sulfate (5 sources) Chondroitin Sulf ate Active Chondroitin Sulfates / Glucosamine (20 sources) Start: 02-12-2019 Glucosamine Chondroitin 1500mg/1200mg, Oral, Daily, Refill(s) 0, Prophylaxis Start Date: 02/12/19 Status: Ordered Repeat number: 1 Start: 02-12-2019 Glucosamine Ch ondroitin 1500mg/1200mg, Oral, Daily, Refill(s) 0, Prophylaxis Start Date: 02/12/19 Status: Ordered clindamycin 0.01 mg/mg topical gel (5 sources) Lincosamide Antibacterial Start: 07-20-2024 clindamycin (Clindagel) 1 % gel Indications: Bacterial folliculitis Apply to scalp once a day/90 days 180 g 3 07/20/2024 Active Start: 07-14-2024 clindamycin (C lindagel) 1 % gel Indications: Bacterial folliculitis Apply to scalp once a day/30 days 60 g 11 07/14/2024 Active Start: 07-14-2024 clindamycin (C lindagel) 1 % gel Indications: Bacterial folliculitis Apply to scalp once a day/30 days 60 g 11 07/14/2024 Active cyclobenzaprine hydrochloride 5 mg oral tablet (20 sources) Muscle Relaxant Start: 06-18-2023 take 1 tablet by mouth every twenty-four hours Cyclobenzaprine HCl 5 MG 1 tablet at bedtime as needed Orally Once a day for 30 day(s) May, Active Start: 03-18-2023 End: 11-22-2023 cyclobenzaprine (FLEXERIL) 1 0 MG tablet Take 1 tablet by mouth 03/18/2023 Active Comment on above: Take 10 mg by mouth. diphenhydrAMINE hydrochloride 25 mg oral capsule (5 sources) Histamine-1 Receptor Antagonist take 1 capsule by mouth every twenty-four hours diphenhydrAMINE HCl 25 MG 1 capsule at bedtime as needed Orally Once a day Active enteric contrast (will be provided with radiology test) (20 sources) Start: 06-18-20 End: 06-19-20 enteric contrast (will be provided with radiology test) For CT ABD/PEL W IVCON Routine order Administer, As Directed One Time Only, via Oral, Rectal, both Oral and Rectal, Enteric Tube, Stoma or Indwelling Catheter, Enteric Contrast as designated per enteric contrast guidelines 1 each 06/18/2025 06/19/2025 Active Start: 04-12-2025 End: 04-13-2025 enteric contrast (will be pr ovided with radiology test) MRI RECTUM WO/W. Administer, As Directed One Time Only, via Oral, Rectal, both Oral and Rectal, Enteric Tube, Stoma or Indwelling Catheter, Enteric Contrast as designated per enteric contrast guidelines 1 each 04/12/2025 04/13/2025 Start: 04-12-2025 End: 04-13-2025 enteric contrast (will be pr ovided with radiology test) For CT CHESTABD/PEL W IVCON Routine order Administer, As Directed One Time Only, via Oral, Rectal, both Oral and Rectal, Enteric Tube, Stoma or Indwelling Catheter, Enteric Contrast as designated per enteric contrast guidelines 1 each 04/12/2025 04/13/2025 Start: 12-07-2024 End: 12-08-2024 enteric contrast (will be pr ovided with radiology test) MRI RECTUM WO/W. Administer, As Directed One Time Only, via Oral, Rectal, both Oral and Rectal, Enteric Tube, Stoma or Indwelling Catheter, Enteric Contrast as designated per enteric contrast guidelines 1 Each 12/07/2024 12/08/2024 Active Start: 12-07-2024 End: 12-08-2024 enteric contrast (will be pr ovided with radiology test) For CT CHESTABD/PEL W IVCON Routine order Administer, As Directed One Time Only, via Oral, Rectal, both Oral and Rectal, Enteric Tube, Stoma or Indwelling Catheter, Enteric Contrast as designated per enteric contrast guidelines 1 Each 12/07/2024 12/08/2024 Active Start: 11-10-2024 End: 11-11-2024 enteric contrast (will be pr ovided with radiology test) For CT ABD W IVCON order Administer, As Directed One Time Only, via Oral, Rectal, both Oral and Rectal, Enteric Tube, Stoma or Indwelling Catheter, Enteric Contrast as designated per enteric contrast guidelines 1 Each 11/10/2024 11/11/2024 Active Start: 11-10-2024 End: 11-11-2024 enteric contrast (will be pr ovided with radiology test) For CT PELVIS W IVCON order Administer, As Directed One Time Only, via Oral, Rectal, both Oral and Rectal, Enteric Tube, Stoma or Indwelling Catheter, Enteric Contrast as designated per enteric contrast guidelines 1 Each 11/10/2024 11/11/2024 Active Start: 03-12-2024 End: 03-13-2024 enteric contrast (will be pr ovided with radiology test) MRI RECTUM WO/W. Administer, As Directed One Time Only, via Oral, Rectal, both Oral and Rectal, Enteric Tube, Stoma or Indwelling Catheter, Enteric Contrast as designated per enteric contrast guidelines 1 Each 0 03/12/2024 03/13/2024 Active Start: 03-12-2024 End: 03-13-2024 enteric contrast (will be pr ovided with radiology test) For CT CHESTABD/PEL W IVCON Routine order Administer, As Directed One Time Only, via Oral, Rectal, both Oral and Rectal, Enteric Tube, Stoma or Indwelling Catheter, Enteric Contrast as designated per enteric contrast guidelines 1 Each 0 03/12/2024 03/13/2024 Active Start: 06-25-2023 End: 06-26-2023 enteric contrast (will be pr ovided with radiology test) For CT Chest Abdomen W IVCON order Administer, As Directed One Time Only, via Oral, Rectal, both Oral and Rectal, Enteric Tube, Stoma or Indwelling Catheter, Enteric Contrast as designated per enteric contrast guidelines 1 Each 0 06/25/2023 06/26/2023 Active Start: 05-03-2023 End: 08-27-2023 enteric contrast (will be pr ovided with radiology test) MRI RECTUM WO/W. Administer, As Directed One Time Only, via Oral, Rectal, both Oral and Rectal, Enteric Tube, Stoma or Indwelling Catheter, Enteric Contrast as designated per enteric contrast guidelines 1 Each 05/03/2023 08/27/2023 Discontinued (Discontinued by Patient) Start: 05-03-2023 End: 05-04-2023 enteric contrast (will [...] 1 Each 0 05/03/2023 Active Start: 02-07-2023 End: 08-27-2023 enteric contrast (will be pr ovided with radiology test) MRI RECTUM WO/W. Administer, As Directed One Time Only, via Oral, Rectal, both Oral and Rectal, Enteric Tube, Stoma or Indwelling Catheter, Enteric Contrast as designated per enteric contrast guidelines 1 Each 02/07/2023 08/27/2023 Discontinued (Discontinued by Patient) Start: 02-07-[address] (will be [...] tablet (20 sources) 5-alpha Reductase Inhibitor Start: take 1 tablet by mouth once daily finasteride 5 mg Tab 5 mg = 1 tab(s), Oral, Daily, # 90 tab(s), Refills(s) 3, Pharmacy: [facility]/pharmacy #[id number], 188, cm, 06/18/25 12:31:00 EDT, Height/Length Dosing, 103.1, kg, 06/18/25 12:31:00 EDT, Weight Dosing Start Date: 06/25/25 Status: Ordered Quantity: 90.0 Unit: tab(s) Repeat number: 4 Start: 12-19-2023 End: 05-16-2025 take 1 tablet by mouth once daily finasteride 5 mg Tab 5 mg = 1 tab(s), Oral, Daily, X 90 day(s), # 90 tab(s), Refills(s) 3, Pharmacy: [facility], 188, cm, 02/14/24 9:57:00 EDT, Height/Length Dosing, 113.5, kg, 02/14/24 9:57:00 EDT, Weight Dosing Start Date: 05/21/24 Stop Date: 05/16/25 Status: Ordered Quantity: 90.0 Unit: tab(s) Repeat number: 4 Start: 10-24-2022 End: 10-19-2023 take 1 tablet by mouth once daily finasteride 5 mg Tab 5 mg = 1 tab(s), Oral, Daily, # 90 tab(s), Refills(s) 0, Pharmacy: [facility], 188, cm, 01/28/24 7:59:00 EDT, Height/Length Dosing, 116.4, kg, 01/28/24 7:59:00 EDT, Weight Dosing Start Date: 01/28/24 Status: Ordered Comment on above: Take by mouth. Take by mouth once d aily. Folic Acid (20 sources) Start: 03-10-2025 folic acid Ref ills(s) 0 Start Date: 03/10/25 Status: Ordered Repeat number: 1 Start: 04-16-2011 End: 11-22-2023 take 1 tablet by mouth once daily folic acid (FOLVITE) 1 MG tablet Take 1 tablet by mouth daily 04/16/2011 Active Comment on above: Take 1 mg by mouth o nce daily. glucosamine hydrochloride 1500 mg oral tablet (20 sources) Start: 12-19-2023 take 1 tablet by mouth once daily Glucosamine Hcl 1,500 mg tablet Active 1500 MG PO Daily December 19, 2023 1:00am administer with a meal End: 12-20-2022 take 1 tablet by mouth once daily Glucosamine Sulfate 500 mg tab Take 1 tablet by mouth once daily. 12/20/2022 Discontinued take 1 tablet by blake th once daily Glucosamine HCl 1500 MG 1 tablet Orally Once a day Active Comment on above: Take 1 tablet by blake th. Take 1 tablet by blake th once daily. glucosamine/latoya Abraham sod (GLUCOSAMINE-CHONDROITIN) 1,500-1,200 mg/30 mL liqd (20 sources) glucosamine/yaa dr ana Abraham sod (GLUCOSAMINE-CHONDROITIN) 1,500-1,200 mg/30 mL liqd Take by mouth once daily. Suspended glucosamine/yaa Abraham sod (GLUCOSAMINE-CHONDROITIN) 1,500-1,200 mg/30 mL liqd Take by mouth once daily. Active glucosamine/yaaant Abraham sod (GLUCOSAMINE-CHONDROITIN) 1,500-1,200 mg/30 mL liqd Take by mouth once daily. 0 Active Comment on above: Take by mouth once d aily. hydroCHLOROthiazide 12.5 mg oral capsule (20 sources) Thiazide Diuretic Start: 2020 End: 2023 take 1 capsule by mouth once daily in the morning hydroCHLOROthiazide (MICROZIDE) 12.5 MG capsule Take 1 capsule by mouth every morning 09/12/2023 Active hydroCHLOROthiaz nita (HYDRODiuril) 12.5 MG tablet Take by mouth. Active Comment on above: Take 12.5 mg by mout h once daily. iv contrast (will be provided with radiology test) (20 sources) Start: 06-18-2025 End: 06-19-2025 iv contrast (will be provided with radiology test) CT Chest W -Inject, intravenously, once for 1 dose.No IV access, insert saline lock prior to the beginning of sedation, infusion, injection of imaging exam. Discontinue saline lock post exam. If Pt. has a central line or IVAD, may access for administration according to line specific nursing protocol. Once exam is complete flush line and de-access according to line specific nursing protocol in theCT contrast administration guidelines link. 1 each 06/18/2025 06/19/2025 Active Start: 06-18-2025 End: 06-19-2025 iv contrast (will be provide d with radiology test) CT ABD/PEL -Inject, intravenously, once for 1 dose.No IV access, insert saline lock prior to the beginning of sedation, infusion, injection of imaging exam. Discontinue saline lock post exam. If Pt. has a central line or IVAD, may access for administration according to line specific nursing protocol. Once exam is complete flush line and de-access according to line specific nursing protocol in theCT contrast administration guidelines link. 1 each 06/18/2025 06/19/2025 Active Start: 04-12-2025 End: 04-13-2025 iv contrast (will be provide d with radiology test) MRI Rectum Inject, intravenously, [...] the MR contrast administration guidelines link. 1 each 04/12/2025 04/13/2025 Start: 04-12-2025 End: 04-13-2025 iv contrast (will be provide d with [...] the CT contrast administration guidelines link. 1 each 04/12/2025 04/13/2025 Start: 12-07-2024 End: 12-08-2024 iv contrast (will be provide d with radiology test) MRI Rectum Inject, intravenously, [...] MR contrast administration guidelines link. 1 Each 12/07/2024 12/08/2024 Active Start: 12-07-2024 End: 12-08-2024 iv contrast (will be provide d with [...] CT contrast administration guidelines link. 1 Each 12/07/2024 12/08/2024 Active Start: 11-10-2024 End: 11-11-2024 iv contrast (will be provide d with radiology test) CT ABD W -Inject, intravenously, once for 1 dose.No IV access, [...] CT contrast administration guidelines link. 1 Each 11/10/2024 11/11/2024 Active Start: 11-10-2024 End: 11-11-2024 iv contrast (will be provide d with radiology test) CT PELVIS W -Inject, intravenously, once for 1 dose.No IV access, [...] CT contrast administration guidelines link. 1 Each 11/10/2024 11/11/2024 Active Start: 08-13-2024 End: 08-14-2024 iv contrast (will be provide d with radiology test) CT ABD/PEL -Inject, intravenously, once for 1 dose.No IV access, [...] CT contrast administration guidelines link. 1 Each 08/13/2024 08/14/2024 Active Start: 03-12-2024 End: 03-13-2024 iv contrast (will be provide d with radiology test) MRI Rectum Inject, intravenously, [...] contrast administration guidelines link. 1 Each 0 03/12/2024 03/13/2024 Active Start: 03-12-2024 End: 03-13-2024 iv contrast (will be provide d with [...] contrast administration guidelines link. 1 Each 0 03/12/2024 03/13/2024 Active Start: 06-25-2023 End: 06-26-2023 iv contrast (will be provide d with [...] 0 06/25/2023 06/26/2023 Active Start: 05-03-2023 End: 08-27-2023 iv contrast (will be provide d with radiology test) MRI Rectum Inject, intravenously, [...] MR contrast administration guidelines link. 1 Each 05/03/2023 08/27/2023 Discontinued (Discontinued by Patient) Start: 05-03-2023 End: 05-04-2023 iv contrast (will [...] 1 Each 0 05/03/2023 Active Start: 02-07-2023 End: 08-27-2023 iv contrast (will be provide d with radiology test) MRI Rectum Inject, intravenously, [...] MR contrast administration guidelines link. 1 Each 02/07/2023 08/27/2023 Discontinued (Discontinued by Patient) Start: 02-07-2023 iv contrast (w ill be [...] in the CT contrast administration guidelines link. ketoconazole 20 mg/ml medicated shampoo (3 sources) Azole Antifungal Start: 09-05-2023 ketoconazole (NIZORAL) 2 % shampoo 09/05/2023 Active Start: 09-05-2023 ketoconazole ( NIZORAL) 2 % shampoo WASH SCALP 2 TO 3 TIMES A WEEK (LET SIT FOR 5 MINUTES - THEN RINSE 09/05/2023 Active leflunomide 10 mg oral tablet (20 sources) Antirheumatic Agent Start: 04-16-2011 End: 10-02-2022 take 10 mg by mouth once daily leflunomide 10 mg, Oral, Daily, Refills(s) 0, Other (see comment) Start Date: 04/16/11 Status: Ordered Comment on above: Take 10 mg by mouth once daily. lidocaine 30 mg/ml topical cream (1 source) Antiarrhythmic, Amide Local Anesthetic Start: 12-15-2024 Lidocaine 3 % CREA Indications: Right lower quadrant abdominal pain Apply to affected area daily 85 g 12/15/2024 Active methylPREDNISolone 4 mg oral tablet (3 sources) Corticosteroid Start: 08-13-2024 methylPREDNISolone (MEDROL DOSEPACK) 4 MG tablet Indications: Acute bronchitis due to other specified organisms Take by mouth. 1 kit 08/13/2024 Active methylPREDNISolone 4 mg tab dosepak (1 source) Start: 10-09-2023 take 1 tablet by mouth once methylPREDNISolone 4 mg tab dosepak = 1 packet(s), Oral, Once, as directed on package labeling, X 6 day(s), # 21 tab(s), Refills(s) 0 Start Date: 10/09/23 Status: Ordered MiraLax oral powder for reconstitution (2 sources) Start: 01-02-2022 MiraLax oral powder for reconstitution 17 gram, Oral, Daily, 527 gram, Refill(s) 0, dissolve in water before taking, [facility], 188, cm, 01/02/22 10:27:00 EDT, Height/Length Dosing, 112, kg, 01/02/22 10:27:00 EDT, Weight Dosing Start Date: 01/02/22 Status: Ordered Misc Natural Products (GLUCOSAMINE CHOND CMP ADVANCED PO) (9 sources) Misc Natural Pro ducts (GLUCOSAMINE CHOND CMP ADVANCED PO) Take by mouth. Active ondansetron 4 mg oral tablet (20 sources) Serotonin-3 Receptor Antagonist Start: 07-29-2024 End: 10-27-2024 take 1 tablet by mouth every eight hours as needed ondansetron (ZOFRAN) 4 mg tablet Take 1 tablet by mouth every 8 hours as needed for nausea/vomiting. 20 tablet 1 07/29/2024 10/27/2024 Active Start: 05-07-2023 take 2 tablets by mo [facility] every eight hours as needed for nausea [...] every 8 hours as needed for nausea/vomiting. oxyCODONE hydrochloride 5 mg oral tablet (3 sources) Opioid Agonist Start: 07-29-20 End: 08-03-20 take 1 tablet by mouth every six hours as needed for pain oxyCODONE IR (ROXICODONE) 5 mg immediate release tablet Indications: S/P right colectomy Take 1 tablet by mouth every 6 hours as needed for pain for up to 5 days. 10 tablet 07/29/2024 08/03/2024 Active take 1 tablet by blake th every four hours as needed for pain oxyCODONE (ROXICODONE) 5 MG immediate release tablet Take 1 tablet by mouth every 4 hours as needed for Pain. Max Daily Amount: 30 mg Active Piperacillin (6 sources) Penicillin-class Antibacterial Start: 09-10-2024 piperacillin Refills (s) 0 Start Date: 09/10/24 Status: Ordered Repeat number: 1 Start: 09-10-2024 piperacillin R efills(s) 0 Start Date: 09/10/24 Status: Ordered polyethylene glycol 3350 13155 mg powder for oral solution (7 sources) Osmotic Laxative Start: 01-02-2022 MiraLax oral powder for reconstitution 17 gram, Oral, Daily, 527 gram, Refill(s) 0, dissolve in water before taking, [facility], 188, cm, 01/02/22 10:27:00 EDT, Height/Length Dosing, 112, kg, 01/02/22 10:27:00 EDT, Weight Dosing Start Date: 01/02/22 Status: Ordered potassium citrate 10 meq extended release oral tablet (13 sources) Start: 09-28-2021 End: 09-20-2022 take 1 tablet by mouth twice daily potassium CITRATE 10 mEq ER Tab 10 mEq, 1 tab(s), Oral, BID, 180 tab(s), Refill(s) 3, [facility], 188, cm, 09/28/21 13:33:00 EST, Height/Length Dosing, 112.4, kg, 09/28/21 13:33:00 EST, Weight Dosing Start Date: 09/28/21 Status: Ordered Start: 09-28-2021 take 1 tablet by [facility] twice daily potassium CITRATE 10 mEq ER Tab 10 mEq, 1 tab(s), Oral, BID, 180 tab(s), Refill(s) 3, [facility], 188, cm, 09/28/21 13:33:00 EST, Height/Length Dosing, 112.4, kg, 09/28/21 13:33:00 EST, Weight Dosing Start Date: 09/28/21 Status: Ordered Comment on above: Take by mouth. predniSONE 20 mg oral tablet (20 sources) Start: 04-28-2025 End: 05-08-2025 take 2 tablets by mouth once daily, then take 1 tablet by mouth once daily at mealtime predniSONE (Deltasone) 20 MG tablet Indications: Effusion of right elbow , Arthritis of right elbow Take 2 tablets (40 mg) by mouth Daily for 5 days, THEN 1 tablet (20 mg) Daily for 5 days. Take with food. 15 tablet 04/28/2025 05/08/2025 Active Start: 04-02-2023 predniSONE 10 mg Tab 0 = 1 -, Oral, As Directed, Take 5 tabs by mouth daily x3 days, 4 daily x3 days, 3 daily x3 days, 2 daily x3 days, then 1 tab daily x3 days., # 45 tab(s), Refills(s) 0, [facility]: [id number], 188, cm, 04/02/23 10:50:00 EDT, Height/Length Dosing, 1... Start Date: 04/02/23 Status: Ordered Start: 09-28-2022 take 5 tablets by mo [facility] once daily, then take 4 tablets by [...] days., # 45 tab(s), Refills(s) 0, Pharmacy: [facility] #[id number], 187.6, cm, 08/20/22 7:01:00 EDT, Height/Length Dosing, 112.5,... Start Date: 09/28/22 Status: Ordered Start: 09-03-2022 predniSONE (DE LTASONE) 10 mg tablet 5 mg. 0 09/03/2022 Active Start: 09-03-2022 predniSONE (DE LTASONE) 10 mg tablet Start: 08-14-2022 take 1 tablet by blake th once daily predniSONE 5 mg Tab take 1 tablet by mouth daily as directed START AFTER TAPER Start Date: 11/01/23 Status: Ordered Repeat number: 1 Start: 07-09-2022 predniSONE 10 mg Tab See Instructions, 6 tabs for 2 days,5 tabs for 2 days,4 tabs for 2 days,3 tabs for 2 days,2 tabs for 2 days,1 tab for 2 days, # 42 tab(s), Refills(s) 1, Pharmacy: [facility], 189, cm, 05/31/22 10:57:00 EDT, Height/Length Dosing,... Start Date: 07/09/22 Status: Ordered Start: 04-05-2022 predniSONE 10 mg Tab See Instructions, 6 tabs for 2 days,5 tabs for 2 days,4 tabs for 2 days,3 tabs for 2 days,2 tabs for 2 days,1 tab for 2 days, # 42 tab(s), Refills(s) 0, [facility]: [facility], 189, cm, 04/03/22 10:57:00 EDT, Height/Length Dosing, 110, k... Start Date: 04/05/22 Status: Ordered Start: 01-02-2022 End: 04-02-2022 take 1 tablet by mouth once daily predniSONE 5 mg Tab 5 mg = 1 tab(s), Oral, Daily, X 30 day(s), # 30 tab(s), Refills(s) 2, Pharmacy: [facility] [id number] [address], 188, cm, 01/02/22 10:27:00 EDT, Height/Length Dosing, 112, kg, 01/02/22 10:27:00 EDT, Weight Dosing Start Date: 01/02/22 Stop Date: 04/02/22 Status: Ordered Comment on above: 5 mg. Take 5 mg by mouth o nce daily. prochlorperazine 10 mg oral tablet (20 sources) Phenothiazine Start: 2 End: prochlorperazine 10 mg Tab Refills(s) 0 Start Date: 10/24/22 Status: Ordered take 1 tablet by blake th every eight hours Prochlorperazine Maleate 10 MG 1 tablet as needed Orally Three times a day Active Comment on above: Take 1 tablet by blake th every 6 hours as needed. rivaroxaban 20 mg oral tablet (20 sources) Factor Xa Inhibitor Start: 02-11-2025 take 1 tablet by mouth once daily rivaroxaban (XARELTO) 20 mg tablet Take 1 tablet by mouth once daily. 90 tablet 2 02/11/2025 Active Start: 10-09-2023 Xarelto 15 mg oral tablet 15 mg = 1 tab(s), Oral, Refills(s) 0 Start Date: 10/09/23 Status: Ordered Repeat number: 1 Start: 02-19-2023 End: 11-10-2024 take 1 tablet by mouth once daily in the evening rivaroxaban (XARELTO) 20 mg tablet Take 1 tablet by mouth once daily. Patient should start on January 07, 2025. 90 tablet 2 01/04/2025 4:34 PM EDT 01/07/2025 Active Start: 01-23-2023 End: 05-06-2023 take 1 [...] 01/23/2023 05/06/2023 Discontinued (Course of therapy completed) Rivaroxaban (XAR ELTO PO) Take by mouth Active Comment on above: Take 1 tablet (15 mg ) by mouth twice daily with food for 21 days. Then take 1 tablet (20 mg) by mouth once daily with food for 9 days. Take 1 tablet by blake th daily with dinner. TAKE ONE TABLET BY M OUTH DAILY WITH DINNER sildenafil 100 mg oral tablet (20 sources) Phosphodiesterase 5 Inhibitor Start: 02-14-2024 sildenafil 100 mg Tab 100 mg = 1 tab(s), Oral, As Directed, PRN erectile dysfunction, 1 hour before sexual activity, # 30 tab(s), Refills(s) 3, [facility]: [id number], 188, cm, 02/14/24 9:57:00 EDT, Height/Length Dosing, 113.5, kg, 02/14/24 9:57:00 EDT, Weight Dosing Start Date: 02/14/24 Status: Ordered Quantity: 30.0 Unit: tab(s) Repeat number: 4 Indications: Male erectile dysfunction, unspecified; Start: 01-02-2022 End: 09-20-2022 sildenafil 20 mg oral tablet See Instructions, Take 2 to 5 tablets po prior to sexual activity, # 30 tab(s), Refills(s) 2, Pharmacy: [id number], 188, cm, 01/02/22 10:27:00 EDT, Height/Length Dosing, 112, kg, 01/02/22 10:27:00 EDT, Weight Dosing Start Date: 01/02/22 Status: Ordered Comment on above: Take 20 mg by mouth as needed. skin resp.factor/shark tracy.oil (HEMORRHOID CREAM RECTAL) (4 sources) skin resp.factor/shark tracy.oil (HEMORRHOID CREAM RECTAL) by RECTAL route as needed. Active tadalafil 20 mg oral tablet (16 sources) Phosphodiesterase 5 Inhibitor Start: 10-24-19 23 tadalafil (CIALIS) 20 MG tablet See Instructions, PRN for erectile dysfunction, 1 tab(s) Oral 30-60 mins prior to intercourse. do not exceed 1 tab/24 hrs., # 15 tab(s), Refills(s) 6, Pharmacy: [facility] #[id number], 188, cm, 10/24/22 10:33:00 EST, Height/Length Dosing, 112, kg, 10/24/22 1... 30 tablet 3 01/16/2024 Active tamsulosin hydrochloride 0.4 mg oral capsule (20 sources) alpha-Adrenergic Taina Start: 06-28-20 22 take 1 capsule by mouth once daily tamsulosin (Flomax) 0.4 MG 24 hr capsule Take 1 capsule every day by oral route. 06/28/2022 Active Start: 09-18-2021 take 1 capsule by mo uth twice daily Flomax 0.4 mg Cap 0.4 mg = 1 cap(s), Oral, BID, # 180 cap(s), Refills(s) 3, Pharmacy: [facility], 188, cm, 09/10/24 8:15:00 EST, Height/Length Dosing, 104, kg, 09/10/24 8:15:00 EST, Weight Dosing Start Date: 09/23/24 Status: Ordered Quantity: 180.0 Unit: cap(s) Repeat number: 4 Comment on above: Take 0.4 mg by mouth . Take 0.4 mg by mouth twice daily. tiZANidine 2 mg oral tablet (1 source) Central alpha-2 Adrenergic Agonist Start: 5 take 1 tablet by mouth every eight hours as needed for pain tiZANidine (ZANAFLEX) 2 MG tablet Indications: Right lower quadrant abdominal pain Take 1 tablet by mouth every 8 hours as needed (pain) 30 tablet 12/15/2024 Active valsartan 80 mg oral tablet (20 sources) Angiotensin 2 Receptor Taina Start: 1 End: 5 take 1 tablet by mouth once daily valsartan 80 mg Tab 80 mg = 1 tab(s), Oral, Daily, X 90 day(s), # 90 tab(s), Refills(s) 3, Pharmacy: [facility], 188, cm, 09/10/24 8:15:00 EST, Height/Length Dosing, 104, kg, 09/10/24 8:15:00 EST, Weight Dosing Start Date: 09/10/24 Stop Date: 09/05/25 Status: Ordered Quantity: 90.0 Unit: tab(s) Repeat number: 4 Comment on above: Take 80 mg by mouth once daily. Vitamin C 500 MG (5 sources) Vitamin C 500 MG as directed Orally Active zolpidem tartrate 5 mg oral tablet (20 sources) gamma-Aminobutyric Acid-ergic Agonist Start: take 1 tablet by mouth once daily at bedtime Zolpidem 5 mg tablet Active 5 MG PO Daily at bedtime March 18, 2025 12:00am Start: 03-10-2025 zolpidem Refil ls(s) 0 Start Date: 03/10/25 Status: Ordered Repeat number: 1 Start: 01-11-2025 End: 07-10-2025 take 1 tablet by mouth at bedtime as needed zolpidem (AMBIEN) 5 mg tablet Indications: Malignant neoplasm of rectum (HCC) Take 1 tablet by mouth at bedtime as needed for up to 180 days. 30 tablet 5 06/09/2025 12:54 PM EDT 01/11/2025 07/10/2025 Active Start: 12-07-2024 End: 01-11-2025 take 1 tablet by mouth every 30 days at bedtime as needed zolpidem (AMBIEN) 5 mg tablet Indications: Malignant neoplasm of rectum (HCC) Take 1 tablet by mouth at bedtime as needed for up to 30 days. 30 tablet 1 12/07/2024 9:45 AM EST 12/07/2024 01/11/2025 Discontinued Completed/Discontinued Medications Medication Drug Class(es) Dates Sig (Normalized) Sig (Original) acetaminophen 325 mg oral capsule (20 sources) End: 11-22-2023 acetaminophen 325 mg cap Take by mouth as needed. 11/22/2023 Discontinued (Discontinued by Patient) take 1 capsule by mouth every si x hours Acetaminophen 500 MG 1 capsule as needed Orally every 6 hrs Active Comment on above: Take by mouth. Take by mouth as nee ded. acetaminophen 500 mg / diphenhydrAMINE hydrochloride 25 mg oral tablet (20 sources) Histamine-1 Receptor Antagonist End: 08-27-20 take 1 tablet by mouth once daily at bedtime diphenhydrAMINE-Acet aminophen (TYLENOL PM EXTRA STRENGTH) 25-500 mg tab Take 1 tablet by mouth daily at bedtime. 08/27/2023 Discontinued (Discontinued by Patient) Comment on above: Take 1 tablet by blake th daily at bedtime. aloe vera extract-allantoin liqd (20 sources) End: [...] Discontinued Start: 06-21-2021 [facility] Eliquis 2.5 mg oral tablet 2.5 mg = 1 tab(s), Oral, BID, # 60 tab(s), Refills(s) 11, [address], cm, 06/20/21 9:10:00 EDT, Height/Length Dosing, 109.2, kg, 06/20/21 9:10:00 EDT, Weight Dosing Start Date: 06/21/21 Status: Ordered Start: 07-08-2018 End: 10-02-2022 ELIQUIS 5 mg tab(s) 0 201710/02/2022 Discontinued Start: 07-08-2018 take 2 tablets by mo [facility] twice daily, then take 1 tablet by mouth twice daily ELIQUIS 5 mg tab(s) take 2 tablets by mouth twice a day for 6 days then 1 tablet twice a day 0 07/08/2018 Active Comment on above: take 2 tablets by mo ut twice a day for 6 days then 1 tablet twice a day Take 2 tablets (10 m g) by mouth twice daily for 7 days. Then take 1 tablet (5 mg) by mouth twice daily for 23 days baclofen 10 mg oral tablet (1 source) gamma-Aminobutyr ic Acid-ergic Agonist Start: End: Baclofen 10 mg tablet Discontinued 10 MG PO December 19, 2023 1:00am March 18, 2025 1:01pm calcium chloride 0.0014 meq/ml / potassium chloride 0.004 meq/ml / sodium chloride 0.103 meq/ml / sodium lactate 0.028 meq/ml injectable solution (2 sources) Start: End: take 35 mL intravenously every hour 35 mL/hr, INTRAVENOUS, CONTINUOUS, Starting on Sat07/21/24 at 0900, Until Sat07/21/24 at 0957, Preprocedure Start: 02-25-2024 End: 02-25-2024 lactated ringers iv infusion capecitabine 500 mg oral tablet (20 sources) Nucleoside Metabolic Inhibitor Start: 10-02-2022 End: 11-07-2022 take 4 tablets by mouth twice daily [...] food on days of radiation only (Sat-Sat). ciprofloxacin 500 mg oral tablet (3 sources) Quinolone Antimicrobial Start: 05-16-2023 take 1 tablet by mouth once daily Cipro 500 mg Tab 500 mg = 1 tab(s), Oral, Daily, Take 1 tablet the day before the procedure and 1 tablet after the procedure, # 2 tab(s), Refills(s) 0, Pharmacy: [facility] #[id number], 188, cm, 05/07/23 13:45:00 EDT, Height/Length Dosing, 109, kg, 05/07/23 13:45:00 EDT, Weight Dosing Start Date: 05/16/23 Status: Ordered gabapentin 100 mg oral capsule (13 sources) Anti-epileptic Agent Start: 07-16-2023 End: 03-18-2025 take 1 capsule by mouth once daily Gabapentin 100 mg capsule Discontinued 1 CAP PO Daily December 19, 2023 1:00am March 18, 2025 1:02pm [employer] capsule Orally Once a day; Note: Source Status: Taking; Provider: Darin Casillas Start: 06-20-2023 End: 08-27-2023 take 1 capsule by mouth once daily at bedtime gabapentin (NEURONTIN) 300 mg capsule Take 1 capsule by mouth daily at bedtime for 30 days. 30 capsule 06/20/2023 08/27/2023 Discontinued (Discontinued by Patient) Comment on above: Take 1 capsule by [facility] daily at bedtime for 30 days. hydrocortisone 25 mg/ml topical cream (20 sources) Corticosteroid Start: 10-24-2022 hydrocortisone (ANUSOL-HC) 2.5 % rectal cream Use [...] day(s), # 28 supp, Refills(s) 0, Pharmacy: [facility] #[id number], 189, cm, 08/06/22 13:04:00 EDT, Height/Length Dosing, [...] by mouth every 6 hours as needed. 12/20/2022 Discontinued Comment on above: Take 400 [...] Active Comment on above: by RECTAL route. piperacillin 200 mg/ml / tazobactam 25 mg/ml injectable solution (20 sources) Penicillin-class Antibacterial, beta Lactamase Inhibitor Start: 09-04-2024 End: 11-10-2024 piperacillin-tazobactam (ZOSYN) 40.5 gram injection 40.5 g as directed. 09/04/2024 11/10/2024 Discontinued Start: 08-18-2024 End: 09-04-2024 inject 50 mL intravenously every six hours piperacillin-tazobactam (ZOSYN) 3.375 gram/50 mL in dextrose (iso-osmotic) Inject 50 mL intravenously every 6 hours for 17 days. 3400 mL 08/18/2024 09/04/2024 potassium bicarbonate 20 meq effervescent oral tablet (2 sources) Start: 02-15-2025 End: 07-07-2026 take 1 tablet by mouth twice daily Effer-K 20 mEq oral tablet, effervescent 20 mEq = 1 tab(s), Oral, BID, X 90 day(s), # 180 tab(s), Refills(s) 3, Pharmacy: [facility] #[id number], 188, cm, 07/12/25 8:12:00 EDT, Height/Length Dosing, 106.1, kg, 07/12/25 8:12:00 EDT, Weight Dosing Start Date: 07/12/25 Stop Date: 07/07/26 Status: Ordered Quantity: 180.0 Unit: tab(s) Repeat number: 4 Indications: Calculus of kidney; potassium chloride 10 meq extended release oral tablet (16 sources) Start: 04-17-2023 End: 07-09-2023 take 1 tablet by mouth once daily potassium chloride (K-TAB) 10 mEq tablet Take 1 tablet by mouth once daily. 30 tablet 1 05/06/2023 07/09/2023 Discontinued Comment on above: Take 1 tablet by blake th once daily. 125 ml sodium chloride 9 mg/ml prefilled syringe (20 sources) Start: 08-17-2024 End: 12-07-2024 inject 10 mL intravenously every twelve hours, then inject 10 mL intravenously every twelve hours sodium chloride 0.9 %, flush, (NORMAL SALINE FLUSH) syringe Inject 10 mL intravenously every 12 hours. Flush each IR drain with 10mL normal saline every 12 hours. 1000 mL 1 08/18/2024 12/07/2024 Discontinued spironolactone 25 mg oral tablet (19 sources) Aldosterone Antagonist Start: 04-05-2021 End: 09-20-2022 spironolactone (ALDACTONE) 25 mg tablet q 24 HR. 0 04/05/2021 09/20/2022 Discontinued (Course of therapy completed) Start: 04-05-2021 take 1 tablet by blake th once daily spironolactone 25 mg Tab 25 mg, Oral, Daily, # 90 tab(s), Refills(s) 3, [facility], 187, cm, 03/09/21 13:13:00 EDT, Height/Length Dosing, 110, kg, 03/09/21 13:13:00 EDT, Weight Dosing Start Date: 04/05/21 Status: Ordered Comment on above: q 24 HR. Problems Active Problems Problem Classification Problem Date Documented Date Episodic/Chronic Abdominal hernia (20 sources) Right inguinal hernia 01-01-2018 Episodic Acquired foot deformities (20 sources) Hammer toe; 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: [Acquired hammer toe of left foot] 12-04-2017 Chronic Anal and rectal conditions (20 sources) Anal fissure; 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: [Anorectal disorder] Onset: 2 08-06-2022 Episodic Calculus of urinary tract (20 sources) Kidney stone; 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: [Calculus of kidney] Onset: 3 09-15-2019 Episodic Cancer of prostate (1 source) Malignant tumor of prostate; 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: [Malignant neoplasm of prostate] Chronic Cancer of rectum and anus (20 sources) Malignant tumor of rectum; 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: [Malignant neoplasm of rectum] Onset: 2 Chronic Cancer of rectum and anus (2 sources) Personal history of other malignant neoplasm of rectum, rectosigmoid junction, and anus; 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: [Encounter for follow-up surveillance of rectal cancer] Onset: 4 Episodic Cardiac dysrhythmias (1 source) Ventricular premature complex; 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: [Ventricular premature depolarization] Onset: 3 Chronic Chronic obstructive pulmonary disease and bronchiectasis (3 sources) Mucopurulent chronic bronchitis; 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: [Mucopurulent chronic bronchitis] Onset: 4 08-06-2024 Chronic Coagulation and hemorrhagic disorders (4 sources) Hypercoagulability state; 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 Conditions associated with dizziness or vertigo (4 sources) Dizziness and giddiness; 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: [Dizziness and giddiness] Onset: 2 Episodic Deficiency and other anemia (1 source) Other megaloblastic anemias, not elsewhere classified; 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: [Megaloblastic anemia due to vitamin B12 deficiency] Onset: 5 Episodic Fluid and electrolyte disorders (1 source) Hypokalemia; 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: [Hypokalemia] 05-14-2023 Episodic Genitourinary symptoms and ill-defined conditions (8 sources) Nocturia; 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: [Incomplete emptying of bladder] Onset: 5 04-04-2019 Episodic Hemorrhoids (20 sources) External hemorrhoids; 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: [Internal hemorrhoids] Onset: 5 08-06-2022 Episodic Hyperplasia of prostate (20 sources) Benign prostatic hyperplasia without lower urinary tract symptoms; 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: [Benign prostatic hypertrophy with outflow obstruction] Onset: 1 09-15-2019 Chronic Lymphadenitis (3 sources) Lymphadenopathy; 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: [Enlarged lymph nodes, unspecified] Episodic Neoplasms of unspecified nature or uncertain behavior (2 sources) Neoplastic disease; 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: [Neoplasm of unspecified behavior of bone, soft tissue, and skin] 07-14-2024 Episodic Osteoarthritis (15 sources) Arthritis; 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: [Idiopathic osteoarthritis] 05-08-2019 Chronic Other aftercare (3 sources) Long-term current use of drug therapy; 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: [Other tank terminal gauger (current) drug therapy] Episodic Other aftercare (14 sources) History of malignant neoplasm of rectum; 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: [Encounter for follow-up examination after completed treatment for malignant neoplasm] 05-03-2023 Episodic Other aftercare (2 sources) Device in situ; 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: [Encounter for change or removal of drains] 09-02-2024 Episodic Other aftercare (2 sources) Encounter for follow-up examination after completed treatment [...] disease (2 sources) Arthrodesis status Episodic Other connective tissue disease (2 sources) Pain in right foot; 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: [Pain in right foot] 07-07-2024 Episodic Other connective tissue disease (2 sources) Tendonitis of right ankle; 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: [Other enthesopathy of right foot and ankle] 07-08-2024 Episodic Other diseases of kidney and ureters (2 sources) Urinary tract obstruction; 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: [Other obstructive and reflux uropathy] Onset: 4 Episodic Other gastrointestinal disorders (9 sources) Rectal mass 08-20-2022 Episodic Other gastrointestinal disorders (1 source) Disorder of peritoneum; 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: [Other specified disorders of peritoneum] Onset: 4 Episodic Other gastrointestinal disorders (1 source) Diarrhea of presumed infectious origin; 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: [Diarrhea, unspecified] 08-13-2024 Episodic Other gastrointestinal disorders (2 sources) Finding of abdominopelvic segment of trunk; 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: [Intra-abdominal and pelvic swelling, mass and lump, unspecified site] 11-10-2024 Episodic Other gastrointestinal disorders (1 source) 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; 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: [Fistula of intestine] 12-28-2024 Episodic Other gastrointestinal disorders (1 source) Fistula of intestine; 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: [Fistula of intestine] Onset: 5 Episodic Other lower respiratory disease (3 sources) Multiple nodules of lung; 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: [Other nonspecific abnormal finding of lung field] Episodic Other male genital disorders (20 sources) Male erectile dysfunction, unspecified; 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: [Erectile [...] sources) Polyneuropathy; 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: [Polyneuropathy, unspecified] Chronic Other non-epithelial cancer of skin (1 source) Squamous cell carcinoma of skin, unspecified; 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: [Squamous cell carcinoma of skin] Onset: 5 Episodic Other non-traumatic joint disorders (1 source) Swollen ankle region; 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: [Effusion, left ankle] Episodic Other non-traumatic joint disorders (5 sources) Hip pain; 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: [Pain in left hip] Episodic Other non-traumatic joint disorders (2 sources) Pain in left hip Episodic Other non-traumatic joint disorders (2 sources) Pain in elbow; 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: [Pain in right elbow] 04-28-2025 Episodic Other non-traumatic joint disorders (2 sources) Effusion of joint of right elbow; 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: [Effusion, right elbow] 04-28-2025 Episodic Other nutritional; endocrine; and metabolic disorders [...] nutritional; endocrine; and metabolic disorders (20 sources) Obese class I; 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: [Body mass index (BMI) 30.0-30.9, adult] Onset: 2 Chronic Other nutritional; endocrine; and metabolic disorders (2 sources) Body mass index (BMI) 29.0-29.9, adult Episodic Other screening for suspected conditions (not mental disorders or infectious disease) (3 sources) Imaging of lung abnormal ; 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: [Abnormal results of pulmonary function studies] Onset: 3 Episodic Other skin disorders (2 sources) Bacterial folliculitis; 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: [Other specified follicular disorders] 07-14-2024 Episodic Other skin disorders (2 sources) Seborrheic keratosis; 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: [Other seborrheic keratosis] 07-14-2024 Episodic Other skin disorders (2 sources) Inflamed seborrheic keratosis; 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: [Inflamed seborrheic keratosis] 07-14-2024 Episodic Other skin disorders (2 sources) Skin tag; 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: [Other hypertrophic disorders of the skin] 07-14-2024 Episodic Other skin disorders (1 source) Disorder of the skin and subcutaneous tissue, unspecified; 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: [Skin lesion of scalp] Onset: 5 Episodic Shikha-; endo-; and myocarditis; cardiomyopathy (except that caused by tuberculosis or sexually transmitted disease) (20 sources) Cardiomyopathy; 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: [Other cardiomyopathies] Onset: 2 08-29-2020 Chronic Peripheral and visceral atherosclerosis (5 sources) Peripheral vascular disease; 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: [Peripheral vascular disease, unspecified] Chronic Peritonitis and intestinal abscess (6 sources) Infectious disease of abdomen; 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: [Peritonitis, unspecified] Onset: 4 08-13-2024 Episodic Phlebitis; thrombophlebitis and thromboembolism (9 sources) H/O: thrombosis; 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: [Acute deep vein thrombosis of lower limb] 08-29-2020 Episodic Pneumonia (except that caused by tuberculosis or sexually transmitted disease) (1 source) Pneumonia; 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: [Pneumonia, unspecified organism] Onset: 3 Episodic Residual codes; unclassified (4 sources) Sleep apnea; 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: [Sleep apnea, unspecified] Onset: 4 09-21-2024 Chronic Residual codes; unclassified (1 source) Obstructive sleep apnea syndrome; 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: [Obstructive sleep apnea (adult) (pediatric)] Onset: 4 10-18-2024 Chronic Residual codes; unclassified (1 source) Sleep apnea, unspecified; 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: [Sleep apnea, unspecified] Onset: 4 Chronic Residual codes; unclassified (1 source) Insomnia due to medical condition; 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: [Insomnia due to medical condition] Onset: 5 Chronic Residual codes; unclassified (5 sources) Anticoagulant control [...] of digestive organs] Episodic Residual codes; unclassified (2 sources) Chill; 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: [Chills (without fever)] 08-13-2024 Episodic Residual codes; unclassified (2 sources) Pain; 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: [Pain, unspecified] 07-14-2024 Episodic Residual codes; unclassified (1 source) Family history of cancer of colon; 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: [Family history of malignant neoplasm of digestive organs] 03-18-2025 Episodic Residual codes; unclassified (1 source) Family history of malignant neoplasm of digestive organs; 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: [Family history of malignant neoplasm of gastrointestinal tract] 03-18-2025 Episodic Rheumatoid arthritis and related disease (20 sources) Rheumatoid arthritis, unspecified; 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: [Rheumatoid arthritis] Onset: 1 08-29-2020 Chronic Screening and history of mental health and substance abuse codes (20 sources) Tobacco use and exposure - finding 05-31-2022 Chronic Screening and history of mental health and substance abuse codes (2 sources) Encounter for screening for depression Episodic Spondylosis; intervertebral disc disorders; other back problems (20 sources) Cervical disc disorder 07-07-2018 Chronic Spondylosis; intervertebral disc disorders; other back problems (20 sources) Spinal stenosis in cervical region; 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: [Sciatica] Onset: 2 07-07-2018 Episodic Substance-related disorders (7 sources) Smoker 07-22-2024 Chronic Comment on above: Added secondary to d ocumentation in Social History. Unclassified (1 source) CONTACT W/AND (SUSP) EXPOS COVID-19; 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: [CONTACT W/AND (SUSP) EXPOS COVID-19] Onset: 1 Unclassified (2 sources) Consult; 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: [Consult] Onset: 2 Unclassified (15 sources) Patient encounter status 10-24-2022 Unclassified (1 source) Primary obstructive sleep apnea of ; 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: [Primary obstructive sleep apnea of ] Onset: 5 Past or Other Problems Problem Classification Problem Date Documented Da te Episodic/Chronic Abdominal pain (16 sources) Left lower quadrant pain; 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: [Left upper quadrant pain] Onset: 07-22-2024 09-15-2019 Episodic Complication of device; implant or graft (5 sources) Pain due to internal orthopedic prosthetic devices, implants and grafts, initial encounter; 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: [PAIN INTRL ORTHO PROS DEV GFT INIT] Onset: 03-31-2021 Episodic E Codes: Fall (1 source) Unspecified fall, initial encounter; 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: [Unspecified fall, initial encounter] Onset: 03-27-2024 Episodic Gastrointestinal hemorrhage (13 sources) Rectal hemorrhage; 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: [Hemorrhage of anus and rectum] Onset: 03-31-2025 08-19-2022 Episodic Other aftercare (2 sources) 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; 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: [NURSING HOME CURRNT USE ANTICOAGULANTS] Onset: 04-05-2021 Episodic Other aftercare (1 source) Other long-term (current) drug therapy; 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: [OTH PELLETISING 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 OPERATOR CURRENT DRUG THERAPY] Onset: 04-05-2021 Episodic Other connective tissue disease (1 source) Pain in right foot; 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: [PAIN IN RIGHT FOOT] Onset: 02-09-2021 Episodic Other connective tissue disease (1 source) Pain in left foot; 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: [PAIN IN LEFT FOOT] Onset: 02-09-2021 Episodic Other gastrointestinal disorders (20 sources) Pneumoperitoneum; 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: [Other specified disorders of peritoneum] Onset: 07-23-2024 07-23-2024 Episodic Other gastrointestinal disorders (20 sources) Perforation of intestine; 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: [Perforation of intestine (nontraumatic)] Onset: 07-29-2024 07-29-2024 Episodic Other gastrointestinal disorders (20 sources) Intra-abdominal collection; 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: [Other ascites] Onset: 08-14-2024 08-14-2024 Episodic Other gastrointestinal disorders (1 source) Other ascites; 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: [Intraabdominal fluid collection] Onset: 08-14-2024 Episodic Other gastrointestinal disorders (1 source) Perforation of intestine (nontraumatic); 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: [Perforation bowel (HCC)] Onset: 07-29-2024 Episodic Other gastrointestinal disorders (1 source) Other specified disorders of peritoneum; 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: [Pneumoperitoneum] Onset: 07-23-2024 Episodic Other gastrointestinal disorders (1 source) Intra-abdominal and pelvic swelling, mass and lump, unspecified site; 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: [Intra-abdominal and pelvic swelling, mass and lump, unspecified site] Onset: 11-25-2024 Episodic Other nervous system disorders (1 source) Other acute postprocedural pain; 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: [Post-op pain] Onset: 01-04-2025 Episodic Other non-traumatic joint disorders (4 sources) Pain in right ankle and joints of right foot; 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: [PAIN IN RIGHT ANKLE] Onset: 02-02-2021 Episodic Other non-traumatic joint disorders (1 source) Pain in left shoulder; 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: [Pain in left shoulder] Onset: 03-27-2024 Episodic Pulmonary heart disease (20 sources) Infarction of lung due to embolus; 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: [Other pulmonary embolism without acute cor pulmonale] Onset: 08-04-2018 08-04-2018 Episodic Residual codes; unclassified (20 sources) History of partial resection of colon; 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: [Acquired absence of other specified parts of digestive tract] Onset: 07-29-2024 07-29-2024 Episodic Residual codes; unclassified (1 source) Acquired absence of other specified parts of digestive tract; 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: [S/P right colectomy] Onset: 07-29-2024 Episodic Skin and subcutaneous tissue infections (5 sources) Abscess; 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: [Cutaneous abscess, unspecified] Onset: 08-14-2024 08-24-2024 Episodic Unclassified (1 source) Exposure to 2019 novel coronavirus; 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: [Contact with and (suspected) exposure to COVID19] Unclassified (2 sources) Lumbar back pain M54.50 Unclassified (3 sources) Onset: 08-04-2024 08-04-2024 Results Test Name Value Interpretation Reference Range Facility CNPNon 07-20-2025 CNPN Normal [facility] CNNURSEon 07-19-2025 CNNURSE Normal [facility] CNOVSPon 07-19-2025 CNOVSP Normal [facility] Ferritin SerPl-mCncon 2024 Ferritin [Mass/Vol] 57.0 ng/mL Normal 30.3-565.7 [facility] Comment on above: Order Comment: Speci men Type: BLOOD SPECIMENOrdering Facility: [facility] Address: [address] [place] [address] Performed By: #### 2 284-8, 2132-9, 21535-8, 6-4 ####[facility] LABCLIA [id number] [place] [address] [place] Folate SerPl-mCncon 07-19-20 Folate [Mass/Vol] 11.5 ng/mL Normal >4.7 [facility] Comment on above: Order Comment: Speci men Type: BLOOD SPECIMENOrdering Facility: [facility] Address: [address] [place] [address] Performed By: #### 2 284-8, 2132-9, 75444-1, 6-4 ####[facility] LABCLIA [id number] [place] [address] [place] Iron and Iron binding capaci ty panelon 07-19-2025 Iron [Mass/Vol] 55 ug/dL Normal 41-186 [facility] Comment on above: Order Comment: Speci men Type: BLOOD SPECIMENOrdering Facility: [facility] Address: [address] [place] [address] Performed By: #### 2 284-8, 2131-9, 89387-1, 2275-4 ####[facility] LABCLIA [id number] [place] [id number] [place] Iron binding capacity [Mass/Vol] 263 ug/dL Normal 232-386 [facility] Comment on above: Order Comment: Speci men Type: BLOOD SPECIMENOrdering Facility: [facility] Address: [address] [place] [address] Performed By: #### 2 284-8, 2131-9, 49010-1, 4 ####[facility] LABCLIA [id number] [place] [id number] [place] Iron/TIBC [Molar ratio] 20.9 % Normal 15.0-57.0 [facility] Comment on above: Order Comment: Speci men Type: BLOOD SPECIMENOrdering Facility: [facility] Address: [address] [place] [address] Performed By: #### 2 284-8, 2131-9, 62480-6, 2276-01 ####[facility] LABCLIA [id number] [place] [id number] [place] Vit B12 [facility] 025 Cobalamin (Vitamin B12) [Mass/Vol] 193 pg/mL Low 232-1245 [facility] Comment on above: Order Comment: Speci men Type: BLOOD SPECIMENOrdering Facility: [facility] Address: [address] [place] [address] Performed By: #### 2 284-8, 2131-9, 84332-1, 4 ####[facility] LABCLIA [id number] [place] [id number] [place] CBC W Auto Differential pane l (Bld)on 07-15-2025 Basophils (Bld) [#/Vol] 0.05 10*3/uL Normal <0.11 [facility] Comment on above: Order Comment: Speci men Type: BLOOD SPECIMENOrdering Facility: [facility] Address: [address] [place] [address] Performed By: #### 5 7021-8 ####[facility] LABCLIA [id number] [place] [address] Basophils/100 WBC (Bld) 0.7 % Normal [facility] Comment on above: Order Comment: Speci men Type: BLOOD SPECIMENOrdering Facility: [facility] Address: [address] [place] [address] Performed By: #### 5 7021-8 ####[facility] LABCLIA [id number] [place] [address] Differential cell count method Nom (Bld) Auto Normal [facility] Comment on above: Order Comment: Speci men Type: BLOOD SPECIMENOrdering Facility: [facility] Address: [address] [place] [address] Performed By: #### 5 7021-8 ####[facility] LABCLIA [id number] [place] [address] Eosinophils (Bld) [#/Vol] 0.26 10*3/uL Normal <0.46 [facility] Comment on above: Order Comment: Speci men Type: BLOOD SPECIMENOrdering Facility: [facility] Address: [address] [place] [address] Performed By: #### 5 7021-8 ####[facility] LABCLIA [id number] [place] [address] Eosinophils/100 WBC (Bld) 3.4 % Normal [facility] Comment on above: Order Comment: Speci men Type: BLOOD SPECIMENOrdering Facility: [facility] Address: [address] [place] [address] Performed By: #### 5 7021-8 ####[facility] LABCLIA [id number] [place] [address] Erythrocyte distribution width (RBC) [Ratio] 17.1 % High 11.5-15.0 [facility] Comment on above: Order Comment: Speci men Type: BLOOD SPECIMENOrdering Facility: [facility] Address: [address] [place] [address] Performed By: #### 5 7021-8 ####[facility] LABCLIA [id number] [place] [address] Hematocrit (Bld) [Volume fraction] 37.9 % Low 39.0-51.0 [facility] Comment on above: Order Comment: Speci men Type: BLOOD SPECIMENOrdering Facility: [facility] Address: [address] [place] [address] Performed By: #### 5 7021-8 ####[facility] LABCLIA [id number] [place] [address] Hemoglobin (Bld) [Mass/Vol] 12.4 g/dL Low 13.0-17.0 [facility] Comment on above: Order Comment: Speci men Type: BLOOD SPECIMENOrdering Facility: [facility] Address: [address] [place] [address] Performed By: #### 5 7021-8 ####[facility] LABCLIA [id number] [place] [address] Immature granulocytes (Bld) [#/Vol] 10*3/uL Normal <0.10 [facility] Comment on above: Order Comment: Speci men Type: BLOOD SPECIMENOrdering Facility: [facility] Address: [address] [place] [address] Performed By: #### 5 7021-8 ####[facility] LABCLIA [id number] [place] [address] Immature granulocytes/100 WBC (Bld) 0.3 % Normal [facility] Comment on above: Order Comment: Speci men Type: BLOOD SPECIMENOrdering Facility: [facility] Address: [address] [place] [address] Performed By: #### 5 7021-8 ####[facility] LABCLIA [id number] [place] [address] Lymphocytes (Bld) [#/Vol] 1.23 10*3/uL Normal 1.00-4.00 [facility] Comment on above: Order Comment: Speci men Type: BLOOD SPECIMENOrdering Facility: [facility] Address: [address] [place] [address] Performed By: #### 5 7021-8 ####[facility] LABCLIA [id number] [place] [address] Lymphocytes/100 WBC (Bld) 16.3 % Normal [facility] Comment on above: Order Comment: Speci men Type: BLOOD SPECIMENOrdering Facility: [facility] Address: [address] [place] [address] Performed By: #### 5 7021-8 ####[facility] LABCLIA [id number] [place] [address] MCH (RBC) [Entitic mass] 30.7 pg Normal 26.0-34.0 [facility] Comment on above: Order Comment: Speci men Type: BLOOD SPECIMENOrdering Facility: [facility] Address: [address] [place] [address] Performed By: #### 5 7021-8 ####[facility] LABCLIA [id number] [place] [address] MCHC (RBC) [Mass/Vol] 32.7 g/dL Normal 30.5-36.0 [place] Comment on above: Order Comment: Speci men Type: BLOOD SPECIMENOrdering Facility: [facility] Address: [address] [place] [address] Performed By: #### 5 7021-8 ####[facility] LABCLIA [id number] [place] [address] MCV (RBC) [Entitic vol] 93.8 fL Normal 80.0-100.0 [facility] Comment on above: Order Comment: Speci men Type: BLOOD SPECIMENOrdering Facility: [facility] Address: [address] [place] [address] Performed By: #### 5 7021-8 ####[facility] LABCLIA [id number] [place] [address] Monocytes (Bld) [#/Vol] 0.75 10*3/uL Normal <0.87 [facility] Comment on above: Order Comment: Speci men Type: BLOOD SPECIMENOrdering Facility: [facility] Address: [address] [place] [address] Performed By: #### 5 7021-8 ####[facility] LABCLIA [id number] [place] [address] Monocytes/100 WBC (Bld) 9.9 % Normal [facility] Comment on above: Order Comment: Speci men Type: BLOOD SPECIMENOrdering Facility: [facility] Address: [address] [place] [address] Performed By: #### 5 7021-8 ####[facility] LABCLIA [id number] [place] [address] Neutrophils (Bld) [#/Vol] 5.25 10*3/uL Normal 1.45-7.50 [facility] Comment on above: Order Comment: Speci men Type: BLOOD SPECIMENOrdering Facility: [facility] Address: [address] [place] [address] Performed By: #### 5 7021-8 ####[facility] LABCLIA [id number] [place] [address] Neutrophils/100 WBC (Bld) 69.4 % Normal [facility] Comment on above: Order Comment: Speci men Type: BLOOD SPECIMENOrdering Facility: [facility] Address: [address] [place] [address] Performed By: #### 5 7021-8 ####[facility] LABCLIA [id number] [place] [address] Nucleated RBC (Bld) [#/Vol] 10*3/uL Normal <0.01 [facility] Comment on above: Order Comment: Speci men Type: BLOOD SPECIMENOrdering Facility: [facility] Address: [address] [place] [address] Performed By: #### 5 7021-8 ####[facility] LABCLIA [id number] [place] [address] Nucleated RBC/100 WBC (Bld) [Ratio] 0.0 /100 WBC Normal [facility] Comment on above: Order Comment: Speci men Type: BLOOD SPECIMENOrdering Facility: [facility] Address: [address] [place] [address] Performed By: #### 5 7021-8 ####[facility] LABCLIA [id number] [place] [address] Platelet mean volume (Bld) [Entitic vol] 10.2 fL Normal 9.0-12.7 [facility] Comment on above: Order Comment: Speci men Type: BLOOD SPECIMENOrdering Facility: [facility] Address: [address] [place] [address] Performed By: #### 5 7021-8 ####[facility] LABCLIA [id number] [place] [address] Platelets (Bld) [#/Vol] 212 10*3/uL Normal 150-400 [facility] Comment on above: Order Comment: Speci men Type: BLOOD SPECIMENOrdering Facility: [facility] Address: [address] [place] [address] Performed By: #### 5 7021-8 ####[facility] LABCLIA [id number] [place] [address] RBC (Bld) [#/Vol] 4.04 10*6/uL Low 4.20-6.00 [facility] Comment on above: Order Comment: Speci men Type: BLOOD SPECIMENOrdering Facility: [facility] Address: [address] [place] [address] Performed By: #### 5 7021-8 ####[facility] LABCLIA [id number] [place] [address] WBC (Bld) [#/Vol] 7.56 10*3/uL Normal 3.70-11.00 [facility] Comment on above: Order Comment: Speci men Type: BLOOD SPECIMENOrdering Facility: [facility] Address: [address] [place] [address] Performed By: #### 5 7021-8 ####[facility] LABCLIA [id number] [place] [address] CEA SerPl-ncon 07-15-2025 Carcinoembryonic Ag [Mass/Vol] 1.9 ng/mL Normal <=2.9 [facility] Comment on above: Order Comment: Speci men Type: BLOOD SPECIMENOrdering Facility: [facility] Address: [address] [place] [address] Result Comment: Carc inoembryonic antigen test is [...] used interchangeably. Performed By: #### 2 039-6 ####[facility] LABCLIA [id number] [place] [address] [place] ABD/PEL W IVCONon 025 CT ABD/PEL W IVCON Normal [facility] CT CHEST W IVCONon 5 CT CHEST W IVCON Normal [facility] Comprehensive metabolic 2000 panelon 07-15-2025 Albumin [Mass/Vol] 3.5 g/dL Low 3.9-4.9 [facility] Comment on above: Order Comment: Speci men Type: BLOOD SPECIMENOrdering Facility: [facility] Address: [address] [place] [address] Performed By: #### 2 4323-8 ####[facility] LABCLIA [id number] [place] [address] ALP [Catalytic activity/Vol] 108 U/L Normal 38-113 [facility] Comment on above: Order Comment: Speci men Type: BLOOD SPECIMENOrdering Facility: [facility] Address: [address] [place] [address] Performed By: #### 2 4323-8 ####[facility] LABCLIA [id number] [place] [address] ALT [Catalytic activity/Vol] 16 U/L Normal 10-54 [facility] Comment on above: Order Comment: Speci men Type: BLOOD SPECIMENOrdering Facility: [facility] Address: [address] [place] [address] Performed By: #### 2 4323-8 ####[facility] LABCLIA [id number] [place] [address] Anion gap [Moles/Vol] 9 mmol/L Normal 8-15 [place] Comment on above: Order Comment: Speci men Type: BLOOD SPECIMENOrdering Facility: [facility] Address: [address] [place] [address] Performed By: #### 2 4323-8 ####[facility] LABCLIA [id number] [place] [address] AST [Catalytic activity/Vol] 16 U/L Normal 14-40 [facility] Comment on above: Order Comment: Speci men Type: BLOOD SPECIMENOrdering Facility: [facility] Address: [address] [place] [address] Performed By: #### 2 4323-8 ####[facility] LABCLIA [id number] [place] [address] Bilirubin [Mass/Vol] 0.5 mg/dL Normal 0.2-1.3 [facility] Comment on above: Order Comment: Speci men Type: BLOOD SPECIMENOrdering Facility: [facility] Address: [address] [place] [address] Performed By: #### 2 4323-8 ####[facility] LABCLIA [id number] [place] [address] Calcium [Mass/Vol] 8.7 mg/dL Normal 8.5-10.2 [facility] Comment on above: Order Comment: Speci men Type: BLOOD SPECIMENOrdering Facility: [facility] Address: [address] [place] [address] Performed By: #### 2 4323-8 ####[facility] LABCLIA [id number] [place] [address] Chloride [Moles/Vol] 107 mmol/L Normal 98-107 [facility] Comment on above: Order Comment: Speci men Type: BLOOD SPECIMENOrdering Facility: [facility] Address: [address] [place] [address] Performed By: #### 2 4323-8 ####[facility] LABCLIA [id number] [place] [address] CO2 [Moles/Vol] 25 mmol/L Normal 22-30 [facility] Comment on above: Order Comment: Speci men Type: BLOOD SPECIMENOrdering Facility: [facility] Address: [address] [place] [address] Performed By: #### 2 4323-8 ####[facility] LABCLIA [id number] [place] [address] Creatinine [Mass/Vol] 0.97 mg/dL Normal 0.73-1.22 [place] Comment on above: Order Comment: Speci men Type: BLOOD SPECIMENOrdering Facility: [facility] Address: [address] [place] [address] Performed By: #### 2 4323-8 ####[facility] LABCLIA [id number] [place] [address] eGFRcr SerPlBld CKD-EPI 2020 83 mL/min/1.73m??? Normal >=60 [facility] Comment on above: Order Comment: Speci men Type: BLOOD SPECIMENOrdering Facility: [facility] Address: [address] [place] [address] Result Comment: Rebekah mated Glomerular Filtration Rate [...] actual GFR. Performed By: #### 2 4323-8 ####[facility] LABCLIA [id number] [place] [address] Glucose [Mass/Vol] 84 mg/dL Normal 74-99 [facility] Comment on above: Order Comment: Speci men Type: BLOOD SPECIMENOrdering Facility: [facility] Address: [address] [place] [address] Result Comment: The [place] [employer] (ADA) provides guidance for cutoff [...] Standards of Medical Care in Diabetes 2016, [place] [employer]. Diabetes Care. 2016.39(Suppl 1). Performed By: #### 2 4323-8 ####[facility] LABCLIA [id number] [place] [address] Potassium [Moles/Vol] 3.8 mmol/L Normal 3.7-5.1 [place] Comment on above: Order Comment: Speci men Type: BLOOD SPECIMENOrdering Facility: [facility] Address: [address] [place] [address] Performed By: #### 2 4323-8 ####[facility] LABCLIA [id number] [place] [address] Protein [Mass/Vol] 6.0 g/dL Low 6.3-8.0 [facility] Comment on above: Order Comment: Speci men Type: BLOOD SPECIMENOrdering Facility: [facility] Address: [address] [place] [address] Performed By: #### 2 4323-8 ####[facility] LABCLIA [id number] [place] [address] Sodium [Moles/Vol] 141 mmol/L Normal 136-144 [facility] Comment on above: Order Comment: Speci men Type: BLOOD SPECIMENOrdering Facility: [facility] Address: [address] [place] [address] Performed By: #### 2 4323-8 ####[facility] LABCLIA [id number] [place] [address] Urea nitrogen [Mass/Vol] 14 mg/dL Normal 9-24 [facility] Comment on above: Order Comment: Speci men Type: BLOOD SPECIMENOrdering Facility: [facility] Address: [address] [place] [address] Performed By: #### 2 4323-8 ####[facility] LABCLIA [id number] [place] [address] ALLIED HEALTHon 07-13-2025 [facility] HNO ID: [id number] Author: PARISA KEENAN RT(R) Service: Radiology Author Type: Technologist Type: Allied Health Filed: 07/13/2025 11:02 Note Text: Radiology Service Progress Note PATIENT NAME: Mervat Grayson DATE OF SERVICE: July 13, 2025 TIME: 10:56 AM PATIENT IDENTITY VERIFICATION COMPLETED USING TWO (2) IDENTIFIERS: Name and Date of confirmed by patient verbally and Name and Date of confirmed by identification band. FALL SCREENING: Has the patient had 2 falls in the last year or 1 fall with injury or currently using an Ambulatory Assistive Device (Walker, Cane, Wheelchair, Crutches, etc.)? No PATIENT GENDER DATA: Assigned male at PATIENT RELEVANT IMPLANT DATA REVIEWED: Yes PATIENT PRESENTS WITH AN IMPLANTABLE OR ATTACHED DRAINAGE ENGINEER: No RADIOLOGY DEPARTMENT: MR; Exam(s) Completed: Body: Rectal. Anesthesia: No. Aromatherapy Administered: No PERIPHERAL IV DATA: Not applicable and injected 10ml elucirem into port SIGNED BY: Parisa Keenan, RT(R) July 13, 2025 10:56 AM [facility] MRI RECTUM WO/W IVCONon 09-2 MRI RECTUM WO/W IVCON * * *Final Report* * * DATE OF EXAM: Jul 13 2025 12:59PM [facility] 0754 - MRI RECTUM WO/W IVCON / PROCEDURE REASON: Malignant neoplasm of rectum (HCC) * * * * Physician Interpretation * * * * MRI OF THE PELVIS WITHOUT AND WITH CONTRAST: RECTAL CANCER RESTAGING CLINICAL HISTORY: Rectal Cancer RESTAGING Pretreatment Tumor Staging: T3 N0 Rectal tumor histology: Adenocarcinoma Prior chemotherapy or radiation: Yes Other: N/A COMPARISON: Multiple MRIs most recently 01/04/2025 and as remote as 09/11/2022 TECHNIQUE: Magnet: [employer] scanner. Multiplanar MRI with multiple sequences before and after contrast. Contrast: IV: 10 ml of Elucirem RESULT: TREATED PRIMARY TUMOR CHARACTERISTICS (Compare to pre-treatment): DWI (with associated low ADC) ? restricted diffusion and low ADC in tumor or tumor bed: Absent. MRI-T2W: Entirely dark T2 signal/scar. T2 bright mucin (cannot distinguish between cellular and acellular mucin): Absent. Description: T2 hypointense fibrosis along the low rectal wall extending to the anal canal from the 11 to 5:00 position (8:37), similar to prior. Distance of the inferior margin of treated tumor to the anal verge: 0 cm (2:21) Distance of the inferior margin to the top of sphincter complex/anorectal junction: 0 cm (2:21) Relationship to anterior peritoneal reflection: Below Craniocaudal length: 2.5 cm (10:17), unchanged since prior Pre-treatment craniocaudal length: 5.8 cm Tumor location: Low rectum (0-5 cm) Maximal wall thickness: 0.6 cm (9:34), unchanged since prior Pre-treatment wall thickness: 1.5 cm Invasion of [...] Suspicious extra mesorectal lymph nodes: None. OTHER FINDINGS: Colonic diverticula IMPRESSION: DENSE SCAR INVOLVING THE LOW RECTAL WALL / ANAL CANAL. NO VIABLE TUMOR. Since 01/04/2025, 09/11/2022, post treatment primary tumor assessment: Complete/near complete response. mrTRG: Grade 2 - Good response Suspicious Mesorectal lymph nodes: No. Suspicious Extramesorectal lymph nodes: No. Services Manager: PSCB Transcribe Date/Time: Jul 13 2025 2:43P Dictated by : LUIS TOSCANO MD This examination was interpreted and the report reviewed and electronically signed by: LUIS TOSCANO MD on Jul 13 2025 3:00PM EST [id number] Normal [facility] Ambulatory Visit Summaryon 0 07-12-2025 Ambulatory Visit Summary Ambulatory Visit Summary WASINIAK, MERVAT L :1950 Visit Date:07/12/2025 Ambulatory Visit Instructions Your Diagnosis Ureteral stone Kidney stones BPH with urinary obstruction Erectile dysfunction Incomplete bladder emptying Your Care Team Attending Physician - Chandrika Chase Primary Care Physician - Lorenzo MARIN DO This Is Your Medications List potassium bicarbonate (Effer-K 20 mEq oral tablet, effervescent) Contact prescribing physician if questions or concerns ascorbic acid (Vitamin C) ascorbic acid/chondroitin/glucos a/angelo (Glucosamine Chondroitin) carvedilol (carvedilol 6.25 mg Tab) finasteride (finasteride 5 mg Tab) folic acid piperacillin predniSONE (predniSONE 5 mg Tab) rivaroxaban (Xarelto 15 mg oral tablet) sildenafil (sildenafil 100 mg Tab) tamsulosin (Flomax 0.4 mg Cap) valsartan (valsartan 80 mg Tab) zolpidem Procedures Performed Partial resection of colon (08/19/2024), Urodynamics (08/22/2023), Cystoscopy (06/04/2023), Transurethral cystoscopy (06/03/2023), Sigmoidoscopy (08/20/2022), Cataract extraction and insertion of intraocular lens (02/24/2019), Cataract extraction and insertion of intraocular lens (02/12/2019), Laparoscopic repair of inguinal hernia (01/01/2018), Cystoscopy (05/23/2016), [facility] - Extracorporeal shockwave lithotripsy for renal calculus (03/22/2016), [facility] - Extracorporeal shockwave lithotripsy for renal calculus (12/22/2015), Cystoscopy (09/28/2015), Cervical spinal fusion, Cervical spinal fusion, Colonoscopy, Hammer toe operation, Hemorrhoidectomy. Discharge Vitals Heart Rate (Peripheral) 62 Blood Pressure 132/99 Height 188 cm Height 74 in Weight 106.1 kg Weight 233.91 lb BMI 30.02 What to do next Scheduled Follow-Up Appointments Saturday 8:00 AM EST With: Casey ESCOBAR, Pato Abraham Where: [facility] Medications What How Much When Why Instructions New potassium bicarbonate (Effer-K 20 mEq oral tablet, effervescent) 1 Tablets By Mouth 2 times a day Kidney stones Duration: 90 Days Refills: 3 Pickup at [id number] Unchanged ascorbic acid (Vitamin C) 1,000 Milligram By Mouth Every day Contact prescribing physician if questions or concerns Unchanged ascorbic acid/ chondroitin/ glucosa/ angelo (Glucosamine Chondroitin) 1500mg/1200mg By Mouth Every day Contact prescribing physician if questions or concerns Unchanged carvedilol (carvedilol 6.25 mg Tab) 1 Tablets By Mouth 2 times a day Contact prescribing physician if questions or concerns Unchanged finasteride (finasteride 5 mg Tab) 1 Tablets By Mouth Every day Contact prescribing physician if questions or concerns Unchanged folic acid Contact prescribing physician if questions or concerns Unchanged piperacillin Contact prescribing physician if questions or concerns Unchanged predniSONE (predniSONE 5 mg Tab) take 1 tablet by mouth daily as directed START AFTER TAPER Contact prescribing physician if questions or concerns Unchanged rivaroxaban (Xarelto 15 mg oral tablet) 1 Tablets By Mouth Contact prescribing physician if questions or concerns Unchanged sildenafil (sildenafil 100 mg Tab) 1 Tablets By Mouth As Directed as needed for erectile dysfunction Erectile dysfunction 1 hour before sexual activity Contact prescribing physician if questions or concerns Unchanged tamsulosin (Flomax 0.4 mg Cap) 1 Capsules By Mouth 2 times a day Contact prescribing physician if questions or concerns Unchanged valsartan (valsartan 80 mg Tab) 1 Tablets By Mouth Every day Duration: 90 Days Contact prescribing physician if questions or concerns Unchanged zolpidem Contact prescribing physician if questions or concerns Pharmacy Information [id number]: [address] [place], [place] [id number] [phone] Allergies No Known Allergies Problems Ongoing - Any problem that you are currently receiving treatment for. BMI 31.0-31.9,adult BPH with urinary obstruction Cervical spinal stenosis Erectile dysfunction Incomplete bladder emptying Kidney stones Neck pain without injury Non-ischemic cardiomyopathy Prostate cancer screening RA - Rheumatoid arthritis Rectal cancer Sleep apnea Smoker Spinal stenosis in cervical region Tobacco non-user Patient Survey You may receive a survey via text or e-mail asking about your office visit. Please share your experience with us by completing your survey. We appreciate your feedback and thank you for choosing us for your care. Patient Portal You may access all of your results and other medical record information on our secure patient portal. If you are not signed up for this yet, please contact [employer] at [phone] to get signed up today. Language Information Language assistance services are available as needed. [facility] Urology Office/Clinic Noteon 07-12-2025 Urology Office/Clinic Note Urology Office/Clinic Note Chief Complaint ER f/u HPI Staff 74 year old male here for F/U to ER on 06/19/25 Previous DX: BPH w/LUTS, incomplete bladder emptying, ED and kidney stone Pt. restarted Effer-K 20 mEq bid at last visit and Sildenafil Flomax bid and Finasteride qd Patient still taking KUB and JAMES done 07/01/25 Patient denies any dysuria or gross hematuria. Denies any abdomen pain. patient has flank pain, weak stream, incomplete bladder emptying History of Present Illness Staff HPI reviewed and agree. Review of Systems PHQ Score Initial Depression Screen Score: 0 SCORE no fever, chills, malaise, myalgia. no rash/lesions. no chest pain, palpitations, or SOB. no abdominal pain, nausea, vomiting. no unilateral calf swelling, redness, pain Physical Exam Vitals & Measurements HR: 62(Peripheral) BP: 132/99 HT: 74 in HT: 188 cm WT: 233.91 lb WT: 106.1 kg BMI: 30.02 General: nontoxic, well-nourished, appears stated age Mouth: moist mucosa Lungs: normal respiratory effort Cardio: regular rate, good distal perfusion Abdomen: nondistended, no suprapubic distention or tenderness, no CVA tenderness Neurologic: Grossly normal Skin: No rashes or suspicious lesions Assessment/Plan PRW pt. 1. Ureteral stone (N20.1: Calculus of ureter) 06/18/25 CT AP w/ IV con - approximately 4 to 5mm L UPJ calculus with mild left hydronephrosis 07/01/25 KUB - no calculus identified along the expected course of either ureter 07/01/25 JAMES - negative for ureteral stones Pt here for follow up to [facility] on 06/18 for L flank pain and hematuria. Pt reports he did have some rectal bleeding over the weekend as well as L scapula pain. Pt reports lower back pain which is chronic in nature. Pt denies ever seeing or hearing the stone pass after straining his urine for 1 week. Discussed imaging results with patient not showing any obvious stones but since he did not see the stone pass, I suggested IVP. Pt reports that he is having an abdominal CT on through [facility] for rectal cancer follow up. I advised patient I would discuss with Dr. Singleton and see if CT is okay or if we should obtain IVP. Pt continues Flomax BID, advised patient to continue this and increase fluid intake. Discussed with patient if ureteral stone still present, will need appointment with Dr. Singleton to discuss surgical intervention. -Discuss with Dr. Singleton regarding imaging -Increase fluids -F/U pending above Ordered: E&M of Est. Patient Moderate 30-39 Min 68711 2. Kidney stones (N20.0: Calculus of kidney) CT AP w/ IV con 12/20/23 (ordered by Dr. Anderson) mild bilateral renal cortical atrophy. Numerous bilateral parapelvic renal cysts. Nonobstructing renal calculi bilaterally. 06/18/25 CT AP w/ IV con -approx 5 to 6 L lower pole renal calculus. No other significant urinary tract calculi or suspicious mass. 07/01/25 KUB - 5mm L renal calculus, no calculus identified over the R renal shadow 07/01/25 JAMES - nonobstructing L renal calculus. Pt was restarted on Potassium Citrate at previous office visit, he reports he does not believe he is currently taking this. Upon external pharmacy review, this has not been filled. Will resend today. -Restart Effer-K 20 mEq bid -Greatly increase fluid intake -F/u in January 2026 w/ KUB Ordered: potassium bicarbonate, 20 mEq = 1 tab(s), Oral, BID, X 90 day(s), # 180 tab(s), Refills(s) 3, Pharmacy: [facility] #[id number], 188, cm, 07/12/25 8:12:00 EDT, Height/Length Dosing, 106.1, kg, 07/12/25 8:12:00 EDT, Weight Dosing potassium bicarbonate, 20 mEq = 1 tab(s), Oral, BID, X 90 day(s), # 180 tab(s), Refills(s) 3, Pharmacy: [facility], 188, cm, 02/15/25 8:52:00 EDT, Height/Length Dosing, 105, kg, 02/15/25 8:52:00 EDT, Weight Dosing E&M of Est. Patient Moderate 30-39 Min 00083 3. BPH with urinary obstruction (N40.1: Benign prostatic hyperplasia with lower urinary tract symptoms) PSA: 11/06/19 - 0.9 09/25/21 - 1.6 02/14/24 - 0.1 (0.2 Finasteride) MRI 09/14/22 (done for ca work-up) showed normal prostate. S/p cysto 06/04/23 prostatic urethra showed bilobar hypertrophy with near coaptation of the lobes. The prostate length was less than 3 cm. Moderate trabeculation. S/p urodynamics 08/22/23 does show pt is obstructed urodynamically. -Candidate for TURP UA today trace-intact blood only PVR 57ml (121ml) IPSS 13(15) PSA has decreased significantly, likely secondary to prior radiation for rectal cancer. Will cont to monitor. Denies gross hematuria. Taking Flomax 0.4 mg bid and Finasteride 5 mg qd. Reports post-void dribbling, dabs w toilet paper after voiding. Discussed radiation changes contributing to changes in urination. Advised pt sxs should continue to improve over time. -Cont Flomax bid and Finasteride qd. Pt to call for refills. -Cont sx monitoring -PSA due January 2026 Ordered: E&M of Est. Patient Moderate 30-39 Min 30568 Urnls Dip Stick Auto w/o Microscopy POC 59785 4. Erectile dysfunction (more content not included)... Normal [facility] Comment on above: Result Comment: Elec tronically Signed By: Chandrika Chase\.grace\Date and Time Signed: 07/12/25 09:07 EDT US Renalon 07-02-2025 US Renal Exam Date/Time: 07/01/2025 09:35 EDT Reason for Exam: N20.1;Pain Report IMPRESSION: Nonobstructing left renal calculus. Bilateral cortical renal cysts. CLINICAL HISTORY: Pain, N20.1. COMPARISON: CT abdomen pelvis, 06/18/2025. COMMENT: Right kidney measures 12.1 x 5.9 x 6.2 cm. Left kidney measures 12.0 x 5.8 x 6.3 cm. Both kidneys normal in size, shape, echogenicity, color flow. Right kidney shows 2.8 x 2.1 cm cortical cyst in lower pole. No calculi, cortical thinning, pelvocaliectasis, solid masses right kidney. Left kidney shows 9 mm calculus in mid pole with twinkle effect on color flow. 1.3 cm cortical cyst lower pole left kidney. No pelvocaliectasis, cortical thinning, solid masses identified Ordering Provider: Olivia Varghese FINAL REPORT Dictated: 07/02/2025 4:39 pm Noble Fernández MD Signed (Electronic Signature): 07/02/2025 4:39 pm Signed by: Noble Fernández MD Transcribed by: VEENA Technologist: Normal [facility] XR Abdomen 1 Viewon 07-01-20 XR Abdomen 1 View Exam Date/Time: 07/01/2025 09:39 EDT Reason for Exam: N20.1;Kidney stone Report IMPRESSION: 5 MM LEFT RENAL CALCULUS. EXAMINATION: XR Abdomen 1 View HISTORY: Kidney stone TECHNIQUE: Frontal view of the abdomen and pelvis COMPARISON: 09/25/[address] abdomen pelvis 06/18/2025 FINDINGS: 5 mm calcification projects over the superior pole of the left kidney. No desiccation is identified over the right renal shadow or along expected course of either ureter. Pelvic phleboliths are noted. Nonobstructive bowel gas pattern. No evidence of free air. No acute osseous abnormality. Ordering Provider: Olivia Varghese FINAL REPORT Dictated: 07/01/2025 3:00 pm Roshan Boo DO Signed (Electronic Signature): 07/01/2025 3:00 pm Signed by: Roshan Boo DO Transcribed by: VEENA Technologist: Normal [facility] BMPon 06-18-2025 Anion gap [Moles/Vol] 10 mmol/L Normal 6-16 [facility] Comment on above: Performed By: #### 2 [id number] #### [facility] [address] [place] [address] BUN/Creat Ratio 15 No Units Normal 10-20 [facility] Comment on above: Performed By: #### 2 [id number] #### [facility] [address] [place] [address] Calcium [Mass/Vol] 8.9 mg/dL Normal 8.9-11.1 [facility] Comment on above: Performed By: #### 2 [id number] #### [facility] [address] [place] [address] Chloride [Moles/Vol] 107 mmol/L Normal 101-111 [facility] Comment on above: Performed By: #### 2 041626 #### [facility] [address] [place] [address] CO2 [Moles/Vol] 27 mmol/L Normal 21-31 [facility] Comment on above: Performed By: #### 2 809106 #### [facility] [address] [place] [address] Creatinine [Mass/Vol] 1.2 mg/dL Normal 0.5-1.3 [facility] Comment on above: Performed By: #### 2 197112 #### [facility] [address] [place] [address] Glucose [Mass/Vol] 96 mg/dL Normal 55-199 [facility] Comment on above: Performed By: #### 2 608970 #### [facility] [address] [place] [address] Potassium [Moles/Vol] 4.2 mmol/L Normal 3.5-5.3 [facility] Comment on above: Performed By: #### 2 147040 #### [facility] [address] [place] [address] Sodium [Moles/Vol] 140 mmol/L Normal 135-145 [facility] Comment on above: Performed By: #### 2 080044 #### [facility] [address] [place] [address] Urea nitrogen [Mass/Vol] 18 mg/dL Normal 5-21 [facility] Comment on above: Performed By: #### 2 634252 #### [facility] [address] [place] [address] CBC w/ Auto Diffon 5 Basophil Absolute 0.0 E9/L Normal 0.0-0.2 [facility] Comment on above: Performed By: #### 2 [id number] #### [facility] [address] [place] [address] Basophils/100 WBC (Bld) 0.4 % Normal 0.0-2.0 [facility] Comment on above: Performed By: #### 2 575614 #### [facility] [address] [place] [address] Eos Absolute 0.1 E9/L Normal 0.0-0.5 [facility] Comment on above: Performed By: #### 2 827270 #### [facility] [address] [place] [address] Eosinophils/100 WBC (Bld) 0.9 % Normal 0.0-8.0 [facility] Comment on above: Performed By: #### 2 066829 #### [facility] [address] [place] [address] Erythrocyte distribution width (RBC) [Ratio] 17.8 % High 10.9-14.2 [facility] Comment on above: Performed By: #### 2 147427 #### [facility] [address] [place] [address] Hematocrit (Bld) [Volume fraction] 37.2 % Low 37.7-49.0 [facility] Comment on above: Performed By: #### 2 360440 #### [facility] [address] [place] [address] Hemoglobin (Bld) [Mass/Vol] 12.6 g/dL Low 13.5-17.5 [facility] Comment on above: Performed By: #### 2 397343 #### [facility] [address] [place] [address] Lymph Absolute 0.9 E9/L Low 1.0-4.0 [facility] Comment on above: Performed By: #### 2 520872 #### [facility] [address] [place] [address] Lymphocytes/100 WBC (Bld) 10.4 % Low 14.0-50.0 [facility] Comment on above: Performed By: #### 2 952086 #### [facility] [address] [place] [address] MCH (RBC) [Entitic mass] 31.2 pg Normal 27.0-34.0 [facility] Comment on above: Performed By: #### 2 579137 #### [facility] [address] [place] [address] MCHC (RBC) [Mass/Vol] 33.9 g/dL Normal 31.4-36.0 [facility] Comment on above: Performed By: #### 2 681879 #### [facility] [address] [place] [address] MCV (RBC) [Entitic vol] 92.2 fL Normal 80.0-100.0 [facility] Comment on above: Performed By: #### 2 087322 #### [facility] [address] [place] [address] Dupage Absolute 0.9 E9/L Normal 0.2-1.0 [facility] Comment on above: Performed By: #### 2 066794 #### [facility] [address] [place] [address] Monocytes/100 WBC (Bld) 9.8 % Normal 4.0-14.0 [facility] Comment on above: Performed By: #### 2 387369 #### [facility] [address] [place] [address] Neutro Absolute 6.9 E9/L Normal 2.0-7.5 [facility] Comment on above: Performed By: #### 2 909877 #### [facility] [address] [place] [address] Neutro Auto 78.5 % High 36.0-75.0 [facility] Comment on above: Performed By: #### 2 924465 #### [facility] [address] [place] [address] Platelet 211.0 E9/L Normal 150.0-500.0 [facility] Comment on above: Performed By: #### 2 959279 #### [facility] [address] [place] [address] Platelet mean volume (Bld) [Entitic vol] 8.3 fL Normal 6.4-10.8 [facility] Comment on above: Performed By: #### 2 589637 #### [facility] [address] [place] [address] RBC 4.0 E12/L Low 4.3-5.9 [facility] Comment on above: Performed By: #### 2 [id number] #### [facility] [address] [place] [address] WBC 8.8 E9/L Normal 4.0-11.0 [facility] Comment on above: Performed By: #### 2 [id number] #### [facility] [address] [place] [address] CNPNon 06-18-2025 CNPN Normal [facility] CT Abdomen/Pelvis w/ Contras ton 06-18-2025 CT Abdomen/Pelvis w/ Contrast Exam Date/Time: 06/18/2025 16:45 EDT Reason for Exam: ABDOMINAL PAIN, ACUTE, NONLOCALIZED;Other (please specify) Report IMPRESSION: MILDLY OBSTRUCTING APPROXIMATELY 4 TO 5 MM LEFT UPJ CALCULUS. APPROXIMATELY 5 TO 6 MM LEFT LOWER POLE RENAL CALCULUS. CHRONIC FINDINGS, NOTED. EXAM: CT Abdomen/Pelvis w/ Contrast DATE: 06/18/2025 4:08 PM CLINICAL HISTORY: ABDOMINAL PAIN, ACUTE, NONLOCALIZED. Technologist Comments: pt c/o L flank pain x 2 days. hx kidney stones. hematuria today. sees Dr Singleton normally. pt states he takes Flomax 2 times a day. surg hx: ESWL/stents, inguinal hernia repair, colon resection, fistula; hx colorectal ca with chemo/rad tx. COMPARISON: 09/27/2024. TECHNIQUE: Spiral imaging was obtained of the abdomen and pelvis after the uneventful infusion of intravenous contrast. All CT scans at this facility use dose modulation, iterative reconstruction, and/or weight based dosing when appropriate to reduce radiation dose to as low as reasonably achievable. Unless otherwise stated, incidental findings identified in this report do not require routine follow-up imaging. FINDINGS: Liver: No enlargement, significant fatty infiltration, suspicious mass or lesion. Biliary: A few small gallstones within an otherwise unremarkable-appearing gallbladder. No abnormal biliary ductal dilatation. Pancreas: No suspicious mass, organized fluid collection, surrounding inflammation, or abnormal pancreatic ductal dilatation. Spleen: Within normal limits. Adrenals: Within normal limits. Kidneys: Approximately 4 to 5 mm left UPJ calculus (Series 2, Image 40) (Series 3, Image 29), with mild left hydronephrosis. Approximately 5 to 6 mm left lower pole renal calculus, unchanged from 10/07/2024. No other other significant urinary tract calculi, or suspicious mass. Several small nonenhancing fluid density bilateral peripelvic cysts are again noted. GI tract: No abnormal dilation, wall thickening, or suspicious mass. Previous right lower quadrant ileocolic anastomosis, which is otherwise unremarkable. Mild to moderate predominantly descending and sigmoid diverticulosis. Lymph nodes: No pathologically enlarged lymph nodes. Vasculature: No aneurysm or dissection. Report Mesentery/peritoneum/re troperitoneum: No free fluid, organized fluid collection, suspicious inflammatory changes or mass. Pelvis: The nearly decompressed urinary bladder is otherwise unremarkable. Musculoskeletal: No acute osseous findings identified. Moderate degenerative changes of the lumbar spine and hips. Lower thorax: Mild elevation of the posterior aspect of the left hemidiaphragm with mild probable adjacent scarring and/or atelectasis, substantially similar to 09/27/2024. GFR (mL/min/1/73m2) 64 Contrast: Isovue 300 Contrast amount in ml's: 100.00 Ordering Provider: Ellis Milian FINAL REPORT Dictated: 06/18/2025 4:54 pm Bong Marshall MD Signed (Electronic Signature): 06/18/2025 4:54 pm Signed by: Bong Marshall MD Transcribed by: VEENA Technologist: DENTON Madsen [facility] ED Clinical Summaryon 2024 ED Clinical Summary ED Clinical Summary [address] [address] ED Clinical Summary Person Information Name: [facility]ERV[facility] Age[facility] 74 Years : 1950 Sex: Male Language: Bulgarian PCP: Lorenzo MARIN DO Marital Status: Visit Id: Visit Reason: Back pain; Hematuria; Flank pain; poss kidney stone Speciality: Acuity: 3 Enc Type: Emergency Med Service: Emergency Arrival: 06/18/2025 12:20:59 Discharge: 06/18/2025 17:53:39 LOS: 000 05:33 Checkin: 06/18/2025 12:20:59 Checkout: 06/18/2025 17:53:39 Dispo Type: Home (Routine DC) EVENTS: Event Name Event Status Request Date/Time Start Date/Time Complete Date/Time Arrive Complete 06/18/2025 12:20:59 06/18/2025 12:20:59 06/18/2025 12:20:59 Document Home Meds Request 06/18/2025 12:20:59 Triage Complete 06/18/2025 12:20:59 06/18/2025 12:31:44 06/18/2025 12:31:44 Registration Complete 06/18/2025 12:23:19 06/18/2025 12:23:19 06/18/2025 12:23:19 Reg Complete Request 06/18/2025 12:23:19 Reg Bed Request Complete 06/18/2025 12:23:19 06/18/2025 12:23:19 06/18/2025 12:23:19 Bed Assign Complete 06/18/2025 13:53:30 06/18/2025 13:53:30 06/18/2025 13:53:30 Dr Exam Complete 06/18/2025 13:53:30 06/18/2025 13:55:40 06/18/2025 13:55:40 RN Exam Complete 06/18/2025 13:53:30 06/18/2025 15:17:54 06/18/2025 15:17:54 Registration Request 06/18/2025 13:55:40 Dr Exam Complete 06/18/2025 13:56:15 06/18/2025 13:56:15 06/18/2025 13:56:15 CT Complete 06/18/2025 14:08:51 06/18/2025 15:59:28 06/18/2025 16:45:33 Meds Admin Complete 06/18/2025 14:08:51 06/18/2025 14:52:42 Pending Labs Complete 06/18/2025 14:08:51 06/18/2025 15:37:46 Lab Complete 06/18/2025 14:08:51 06/18/2025 15:37:46 Pending Labs Complete 06/18/2025 15:13:54 06/18/2025 15:13:54 06/18/2025 15:37:46 Lab Complete 06/18/2025 15:13:54 06/18/2025 15:13:54 06/18/2025 15:37:46 Pending Labs Complete 06/18/2025 15:57:10 06/18/2025 15:57:10 06/18/2025 15:57:11 Meds Admin Complete 06/18/2025 16:15:28 06/18/2025 16:20:26 Patient Care Request 06/18/2025 17:37:09 Discharge Complete 06/18/2025 17:37:28 06/18/2025 17:53:47 06/18/2025 17:53:47 Transfer Complete 06/18/2025 17:53:47 06/18/2025 17:53:47 06/18/2025 17:53:47 ADDRESS: [address] [place] [id number] PHYS DOC NOTES: MEDICAL INFORMATION: Prescriptions Given: New Medications [id number], [address], [place] [id number], [phone] oxycodone (oxyCODONE 5 mg Tab) 1 Tablets By Mouth every 6 hours for 3 Days. Refills: 0. Medications to Continue with No Changes Other Medications ascorbic acid (Vitamin C) 1,000 Milligram By Mouth every day. ascorbic acid/chondroitin/glucos a/angelo (Glucosamine Chondroitin) 1500mg/1200mg By Mouth every day. carvedilol (carvedilol 6.25 mg Tab) 1 Tablets By Mouth 2 times a day. Refills: 3. folic acid piperacillin potassium bicarbonate (Effer-K 20 mEq oral tablet, effervescent) 1 Tablets By Mouth 2 times a day for 90 Days. Refills: 3. predniSONE (predniSONE 5 mg Tab) take 1 tablet by mouth daily as directed START AFTER TAPER. rivaroxaban (Xarelto 15 mg oral tablet) 1 Tablets By Mouth. sildenafil (sildenafil 100 mg Tab) 1 Tablets By Mouth As Directed as needed erectile dysfunction. 1 hour before sexual activity. Refills: 3. tamsulosin (Flomax 0.4 mg Cap) 1 Capsules By Mouth 2 times a day. Refills: 3. valsartan (valsartan 80 mg Tab) 1 Tablets By Mouth every day for 90 Days. Refills: 3. zolpidem PATIENT EDUCATION INFORMATION: Instructions: Kidney Stones Follow up: With: Address: When: Corey SINGLETON [address] [place], [place] [id number] [employer] In 3 days 06/21/2025 DIAGNOSIS: Kidney stone Normal [facility] ED Note-Physicianon 06-18-20 ED Note-Physician ED Note-Physician Basic Information Time Seen: Corrina Rogers, Yuridia Walter 06/18/2025 13:55 Chief Complaint pt presents to the ER with L flank pain for 2 days. per pt hx kidney stones. started having blood in urine today. sees Dr Singleton normally. pt states he takes flomax 2 times a day. History of Present Illness 74-year-old male comes to the ED for evaluation of left flank pain. He presents complaining of left flank pain with some radiation to the abdomen hematuria. Does have a history of kidney stones. However, he also has extensive abdominal history including previous bowel resection with a history of colorectal cancer and now in remission. Does take Flomax with a history of BPH. He is on Xarelto with a history of PE. He has had some nausea but no vomiting. No fever or chills. No dysuria. Review of Systems A 10 point review of systems is negative except as noted above. Medical and Surgical History: Reviewed and noted Social history: Lives at home Tobacco: Denies Physical Exam Vitals & Measurements T: 36 ???C(Tympanic) HR: 57(Peripheral) RR: 20 BP: 140/86 SpO2: 99% HT: 188 cm WT: 103.1 kg BMI: 29.17 Nurses notes and vital signs reviewed and patient is not hypoxic. General: The patient appears well, resting comfortably. Skin: Warm, dry. Head: Atraumatic. Neck: No JVD. Eye: Normal conjunctiva. Ears, Nose, Mouth, and Throat: Moist mucous membranes. Cardiovascular: Strong distal pulses. Chest wall: Respiratory: Respirations are nonlabored. Back: Normal range of motion. Left CVA tenderness Musculoskeletal: Normal ROM with no gross deformity. Gastrointestinal: Soft throughout. There is mild left mid tenderness. No guarding rebound rigidity. No distention. Urological: Neurological: Awake and alert. No focal deficits. Follows commands. Psychiatric: Cooperative. Medical Decision Making Laboratory studies reviewed and noted. Patient does have hematuria, no infection. No leukocytosis. Renal function is preserved. CT of the abdomen was obtained with IV contrast due to his extensive history. This is reviewed by the radiologist. Scan shows a 4 mm left-sided calculus. Patient feels much improved after IV fluids and pain medications. He is discharged home pain medications and will follow-up with his urologist. He is already on Flomax. Has nausea medication at home as well. Patient was encouraged to return to the ED if symptoms worsen or change. Assessment/Plan Kidney stone (N20.0: Calculus of kidney) Ordered: oxycodone, 5 mg = 1 tab(s), Oral, q6hr, X 3 day(s), # 15 tab(s), Refills(s) 0, Pharmacy: [facility] #[id number], 188, cm, 06/18/25 12:31:00 EDT, Height/Length Dosing, 103.1, kg, 06/18/25 12:31:00 EDT, Weight Dosing Orders: morphine, 4 mg = 1 mL, Injection, IV Push, Once, Stop date 06/18/25 14:08:00 EDT, STAT, Start date 06/18/25 14:08:00 EDT, 06/18/25 14:08:00 EDT morphine, 4 mg = 1 mL, Injection, IV Push, Once, Stop date 06/18/25 16:15:00 EDT, STAT, Start date 06/18/25 16:15:00 EDT, 06/18/25 16:15:00 EDT ondansetron, 4 mg = 2 mL, Injection, IV Push, Once, Stop date 06/18/25 14:08:00 EDT, STAT, Start date 06/18/25 14:08:00 EDT, 06/18/25 14:08:00 EDT Sodium Chloride 0.9% intravenous solution, 1,000 mL, Soln-IV, IV, Once, Stop date 06/18/25 14:08:00 EDT, STAT, Start date 06/18/25 14:08:00 EDT, Infuse over 61, minute(s) Basic Metabolic Panel CBC w/ Auto Diff CT Abdomen/Pelvis w/ Contrast eGFR Extra Blue Tube Extra SST Tube Hepatic Function Panel Lipase Level UA with Cult Rflx Urine Strainer to go Medications Administered Given morphine 4 mg/mL Inj, 4 mg, IV Push morphine 4 mg/mL Inj, 4 mg, IV Push NS 1000 ml Bolus, 1000 mL, IV ondansetron 4 mg/2 mL Inj, 4 mg, IV Push Disposition Plan Patient Discharge Condition Disposition: Discharged home Condition: Improved and stable Counseled: Patient and/or family were counseled to workup, results, treatment plan and follow-up recommendations Discharge Prescription List Prescriptions oxyCODONE 5 mg Tab, 5 mg= 1 tab(s), Oral, q6hr Follow-up With When Contact Information Corey SINGLETON In 3 days 06/21/[address] [place], [place] [id number] [facility] (1) Additional Instructions: Patient Education Kidney Stones Attestation I performed a substantive part of the MDM during the patient???s E/M visit. I personally made or approved the documented management plan and acknowledge its risk of complications. (Independent Interpretation) My (EKG/X-Ray/US/CT) interpretation as above. (Discussion) Management/test interpretation discussed with APC. This report was transcribed using voice recognition software. Every effort was made to ensure accuracy, however, inadvertently computerized relocation director mistakes may be present. Appropriate healthcare PPE was used in evaluating this patient. Problem List/Past Medical History Ongoing BMI 31.0-31.9,adult BPH with urinary obstruction Cervical spinal stenosis Er (more content not included)... Normal [facility] Comment on above: Result Comment: Elec tronically Signed By: Ellis Milian PA-C\.br\Date and Time Signed: 06/18/25 17:50 EDT\.br\Electronically Co-Signed By: Yuridia Houser M.D.\.br\Date and Time Co-Signed: 06/18/25 17:57 EDT ED Patient Summaryon 025 ED Patient Summary ED Patient Summary [address] [address] Patient Discharge Instructions Person Information Name: MERVAT GRAYSON Age: 74 Years Arrival Date: 06/18/2025 12:20:59 Discharge Diagnosis: Kidney stone Primary Care Physician: Lorenzo MARIN DO Provider Information Primary Provider: Yuridia Houser M.D. Advanced Drupal Web Developer:Ellis Milian PA-C The exam and treatment you received in the Emergency Department were for an urgent problem and are not intended as complete care. It is important that you follow up with a doctor, nurse practitioner, or physician???s assistant boiler operator for ongoing care. If your symptoms become worse or you do not improve as expected and you are unable to reach your usual health care provider, you should return to the Emergency Department. We are available 24 hours a day. MERVAT GRAYSON has been given the following list of patient education materials, prescriptions and follow-up instructions: Follow-up Instructions: With: Address: When: Corey [address] [address] [facility] (1) In 3 days 06/21/2025 In the event that this physician does not participate in your insurance network, please consult with your insurance company to find a nearby participating provider. Patient Education Materials: Kidney Stones A MESSAGE TO ALL PATIENTS REGARDING OPIOIDS PRESCRIPTION OPIOIDS: WHAT YOU NEED TO KNOW Prescription opioids can be used to help relieve xloigugj-it-uzczpe pain and are often prescribed following a [...] as well, even when taken as directed: ??? Tolerance???meaning you might need to take more of the medication for the same pain relief ??? Physical dependence???meaning you have symptoms of withdrawal when a medication is stopped ??? Increased sensitivity to pain ??? Constipation ??? Nausea, vomiting, and dry mouth ??? Sleepiness and dizziness ??? Confusion ??? Depression ??? Low levels of testosterone that can result in lower sex drive, energy, and strength ??? Itching and sweating RISKS ARE GREATER WITH: ??? History of drug misuse, substance use disorder, or overdose ??? Mental health conditions (such as depression or anxiety) ??? Sleep apnea ??? Older age (65 years and older) ??? Avoid alcohol while taking prescription opioids. Also, unless specifically advised by your health care provider, medications to avoid include: ??? Benzodiazepines (such as Xanax or Valium) ??? Muscle relaxants (such as Soma or Flexeril) ??? Hypnotics (such as Ambien or Lunesta) ??? Other prescription opioids KNOW YOUR OPTIONS Talk to your health care provider about ways to manage your pain that don???t involve prescription opioids. Some of these options may actually work better and have fewer risks and side effects. Options may include: ??? Pain relievers such as acetaminophen, ibuprofen, and naproxen ??? Some medication that are also used for depression or seizures ??? Physical therapy and exercise ??? Cognitive behavioral therapy, a psychological, goal-directed approach, in which patients learn how to modify physical, behavioral, and emotional triggers of pain and stress. IF YOU ARE PRESCRIBED OPIOIDS FOR PAIN: ??? Never take opioids in greater amounts or more often than prescribed. ??? Follow up with your primary health care provider. o Work together to create a plan on how to manage your pain. o Talk about ways to help manage your pain that don???t involve prescription opioids. o Talk about any and all concerns and side effects. ??? Help prevent misuse and abuse o Never sell or share prescription opioids. o Never use another person???s prescription opioids. ??? Store prescription opioids in a secure place and out of reach of others (this may include visitors, children, friends, and family). ??? Safely dispose of unused prescription opioids: Find your community drug take-back program or your pharmacy mail-back program, or flush them down the toilet, following guidance from the Food and Drug Administration (www.fda.gov/Drugs/Reso raynaForYou). ??? Visit www.cdc.gov/drugoverdos e to learn about the risks of opioids abuse and overdose. ??? If you believe you may be struggling with addiction, tell your health care profession (more content not included)... Normal [facility] Extra Blueon 06-18-2025 Tube Collected Plasma Yes Invalid Interpretation Code [facility] Comment on above: Performed By: #### 1 [id number] ####[facility] [id number] [place] [address] Hep Func Panelon 06-18-2025 Albumin [Mass/Vol] 3.7 g/dL Normal 3.3-5.0 [facility] Comment on above: Performed By: #### 2 [id number] #### [facility] [address] [place] [address] Albumin/Globulin [Mass ratio] 1.5 {ratio} Normal 1.1-2.2 [facility] Comment on above: Performed By: #### 2 [id number] #### [facility] [address] [place] [address] Alk Phos 85 Int._Unit/L Normal 21-98 [facility] Comment on above: Performed By: #### 2 [id number] #### [facility] [address] [place] [address] ALT 14 Int._Unit/L Normal 6-46 [facility] Comment on above: Performed By: #### 2 [id number] #### [facility] [address] [place] [address] AST 16 Int._Unit/L Normal 5-43 [facility] Comment on above: Performed By: #### 2 [id number] #### [facility] [address] [place] [address] Bili Direct 0.2 mg/dL Normal 0.0-0.4 [facility] Comment on above: Performed By: #### 2 [id number] #### [facility] [address] [place] [address] Bili Indirect 0.8 mg/dL Normal 0.1-0.9 [facility] Comment on above: Performed By: #### 2 [id number] #### [facility] [address] [place] [address] Bili Total 1.0 mg/dL Normal 0.0-1.1 [facility] Comment on above: Performed By: #### 2 [id number] #### [facility] [address] [place] [address] Globulin (S) [Mass/Vol] 2.5 g/dL Normal 1.4-4.0 [facility] Comment on above: Performed By: #### 2 [id number] #### [facility] [address] [place] [address] Protein [Mass/Vol] 6.2 g/dL Normal 6.0-7.8 [facility] Comment on above: Performed By: #### 2 [id number] #### [facility] [address] [place] [address] Lipase Levelon 06-18-2025 Lipase Lvl 8 unit/L Low 13-58 [facility] Comment on above: Performed By: #### 2 [id number] #### [facility] [address] [place] [address] UA with Cult Rflxon 06-18-20 25 Color (U) [place] Abnormal Yellow [facility] Comment on above: Result Comment: Micr oscopic readings are only performed on those samples that meet specific criteria set forth by [facility]. Performed By: #### 4 [id number] #### [facility] [address] [place] [address] Glucose (U) [Mass/Vol] Negative Normal Negative [facility] Comment on above: Performed By: #### 4 [id number] #### [facility] [address] [place] [address] Ketones Ql (U) Negative Normal Negative [facility] Comment on above: Performed By: #### 4 [id number] #### [facility] [address] [place] [address] UA Blood 3+ mg/dL Abnormal Negative [facility] Comment on above: Performed By: #### 4 [id number] #### [facility] [address] [place] [address] UA Budding Yeast 2+ CD:[id number] Abnormal [facility] Comment on above: Performed By: #### 4 [id number] #### [facility] [address] [place] [address] UA Clarity Turbid Abnormal Clear [facility] Comment on above: Performed By: #### 4 [id number] #### [facility] [address] [place] [address] UA Leuk Est Negative Normal Negative [facility] Comment on above: Performed By: #### 4 [id number] #### [facility] [address] [place] [address] UA Mucous Trace Normal Negative [facility] Comment on above: Performed By: #### 4 [id number] #### [facility] [address] [place] [address] UA Nitrite Negative Normal Negative [facility] Comment on above: Performed By: #### 4 [id number] #### [facility] [address] [place] [address] UA pH 5.5 Invalid Interpretation Code 5.0-9.0 [facility] Comment on above: Performed By: #### 4 [id number] #### [facility] [address] [place] [address] UA Protein 1+ mg/dL Abnormal Negative [facility] Comment on above: Performed By: #### 4 [id number] #### [facility] [address] [place] [address] UA RBC >75 Abnormal 0-3 [facility] Comment on above: Performed By: #### 4 [id number] #### [facility] [address] [place] [address] UA Spec Grav 1.021 Invalid Interpretation Code 1.005-1.030 [facility] Comment on above: Performed By: #### 4 [id number] #### [facility] [address] [place] [address] UA Squam Epithelial 0-2 Invalid Interpretation Code [facility] Comment on above: Performed By: #### 4 [id number] #### [facility] [address] [place] [address] UA Urobilinogen Negative Normal Negative [facility] Comment on above: Performed By: #### 4 [id number] #### [facility] [address] [place] [address] Urobilinogen (U) [Mass/Vol] Negative Normal Negative [facility] Comment on above: Performed By: #### 4 [id number] #### [facility] [address] [place] [address] UA Spec Desc Clean Catch Normal [facility] Comment on above: Performed By: #### 4 [id number] #### [facility] [address] [place] [address] eGFRon 06-18-2025 eGFR 64 mL/min/1.73 m2 Normal >=59 [facility] Comment on above: Performed By: #### 1 [id number] #### [facility] [address] [place] [address] XR Elbow - right 3 Viewson 0 04-28-2025 Imaging Result: AP Lateral and oblique right elbow: No acute fracture or dislocation Moderate effusion Moderate to severe ulna- humeral arthritic changes with spurring Mild radio-capitellar arthritic changes 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 [facility] Radiology Study observation (narrative) [facility] CARCINOEMBRYONIC ANTIGENon 0 04-13-2025 Carcinoembryonic Ag [Mass/Vol] 1.6 ng/mL [facility] - 2.9 ng/mL [facility] Comment on above: Carcinoembryonic ant igen test is used as an aid in monitoring response to treatment or recurrence in patients with established colorectal, breast, lung, prostatic, pancreatic, and ovarian carcinomas. Clinical correlation is required. The Carcinoembryonic antigen test was performed using the [employer] DXI paramagnetic particle chemiluminescent immunoassay method. Results obtained with different assay methods or kits cannot be used interchangeably. Carcinoembryonic Ag [Mass/Vo l]on 04-13-2025 Interpretation and review of laboratory results Normal [facility] CBC W Auto Differential pane l (Bld)on 04-12-2025 Basophils (Bld) [#/Vol] 0.05 10*3/uL [facility] Basophils/100 WBC (Bld) 0.6 % [facility] Differential cell count method Nom (Bld) Auto [facility] Eosinophils (Bld) [#/Vol] 0.17 10*3/uL [facility] Eosinophils/100 WBC (Bld) 1.9 % [facility] Erythrocyte distribution width (RBC) [Ratio] 16.1 % High 11.5 - 15.0 % [facility] Hematocrit (Bld) [Volume fraction] 37 % Low 39.0 - 51.0 % [facility] Hemoglobin (Bld) [Mass/Vol] 12 g/dL Low 13.0 - 17.0 g/dL [facility] Immature granulocytes (Bld) [#/Vol] [facility] [facility] Immature granulocytes/100 WBC (Bld) 0.2 % [facility] Interpretation and review of laboratory results Abnormal [facility] Lymphocytes (Bld) [#/Vol] 0.84 10*3/uL Low [facility] Lymphocytes/100 WBC (Bld) 9.5 % [facility] MCH (RBC) [Entitic mass] 29.9 pg 26.0 - 34.0 pg [facility] MCHC (RBC) [Mass/Vol] 32.4 g/dL 30.5 - 36.0 g/dL [facility] MCV (RBC) [Entitic vol] 92.3 fL 80.0 - 100.0 fL [facility] Monocytes (Bld) [#/Vol] 0.67 10*3/uL NINF [facility] Monocytes/100 WBC (Bld) 7.6 % [facility] Neutrophils (Bld) [#/Vol] 7.11 10*3/uL [facility] Neutrophils/100 WBC (Bld) 80.2 % [facility] Nucleated RBC (Bld) [#/Vol] NINF [facility] Nucleated RBC/100 WBC (Bld) [Ratio] 0 % /100 WBC [facility] Platelet mean volume (Bld) [Entitic vol] 9.4 fL 9.0 - 12.7 fL [facility] Platelets (Bld) [#/Vol] 232 10*3/uL [facility] RBC (Bld) [#/Vol] 4.01 10*6/uL Low 4.20 - 6.0 0 m/uL [facility] WBC (Bld) [#/Vol] 8.86 10*3/uL [facility] Basophils (Bld) [#/Vol] 0.05 10*3/uL Normal <0.11 [facility] Comment on above: Order Comment: Speci men Type: BLOOD SPECIMENOrdering Facility: [facility] Address: [address] [place] [address] Performed By: #### 5 7021-8 ####[facility] LABCLIA [id number] [place] [address] Basophils/100 WBC (Bld) 0.6 % Normal [facility] Comment on above: Order Comment: Speci men Type: BLOOD SPECIMENOrdering Facility: [facility] Address: [address] [place] [address] Performed By: #### 5 7021-8 ####[facility] LABCLIA [id number] [place] [address] Differential cell count method Nom (Bld) Auto Normal [facility] Comment on above: Order Comment: Speci men Type: BLOOD SPECIMENOrdering Facility: [facility] Address: [address] [place] [address] Performed By: #### 5 7021-8 ####[facility] LABCLIA [id number] [place] [address] Eosinophils (Bld) [#/Vol] 0.17 10*3/uL Normal <0.46 [facility] Comment on above: Order Comment: Speci men Type: BLOOD SPECIMENOrdering Facility: [facility] Address: [address] [place] [address] Performed By: #### 5 7021-8 ####[facility] LABCLIA [id number] [place] [address] Eosinophils/100 WBC (Bld) 1.9 % Normal [facility] Comment on above: Order Comment: Speci men Type: BLOOD SPECIMENOrdering Facility: [facility] Address: [address] [place] [address] Performed By: #### 5 7021-8 ####[facility] LABIA [id number] [place] [address] Erythrocyte distribution width (RBC) [Ratio] 16.1 % High 11.5-15.0 [facility] Comment on above: Order Comment: Speci men Type: BLOOD SPECIMENOrdering Facility: [facility] Address: [address] [place] [address] Performed By: #### 5 7021-8 ####[facility] LABCLIA [id number] [place] [address] Hematocrit (Bld) [Volume fraction] 37.0 % Low 39.0-51.0 [facility] Comment on above: Order Comment: Speci men Type: BLOOD SPECIMENOrdering Facility: [facility] Address: [address] [place] [address] Performed By: #### 5 7021-8 ####[facility] LABIA [id number] [place] [address] Hemoglobin (Bld) [Mass/Vol] 12.0 g/dL Low 13.0-17.0 [facility] Comment on above: Order Comment: Speci men Type: BLOOD SPECIMENOrdering Facility: [facility] Address: [address] [place] [address] Performed By: #### 5 7021-8 ####[facility] LABCLIA [id number] [place] [address] Immature granulocytes (Bld) [#/Vol] 10*3/uL Normal <0.10 [facility] Comment on above: Order Comment: Speci men Type: BLOOD SPECIMENOrdering Facility: [facility] Address: [address] [place] [address] Performed By: #### 5 7021-8 ####[facility] LABCLIA [id number] [place] [address] Immature granulocytes/100 WBC (Bld) 0.2 % Normal [facility] Comment on above: Order Comment: Speci men Type: BLOOD SPECIMENOrdering Facility: [facility] Address: [address] [place] [address] Performed By: #### 5 7021-8 ####[facility] LABCLIA [id number] [place] [address] Lymphocytes (Bld) [#/Vol] 0.84 10*3/uL Low 1.00-4.00 [facility] Comment on above: Order Comment: Speci men Type: BLOOD SPECIMENOrdering Facility: [facility] Address: [address] [place] [address] Performed By: #### 5 7021-8 ####[facility] LABCLIA [id number] [place] [address] Lymphocytes/100 WBC (Bld) 9.5 % Normal [facility] Comment on above: Order Comment: Speci men Type: BLOOD SPECIMENOrdering Facility: [facility] Address: [address] [place] [address] Performed By: #### 5 7021-8 ####[facility] LABCLIA [id number] [place] [address] MCH (RBC) [Entitic mass] 29.9 pg Normal 26.0-34.0 [facility] Comment on above: Order Comment: Speci men Type: BLOOD SPECIMENOrdering Facility: [facility] Address: [address] [place] [address] Performed By: #### 5 7021-8 ####[facility] LABCLIA [id number] [place] [address] MCHC (RBC) [Mass/Vol] 32.4 g/dL Normal 30.5-36.0 [place] Comment on above: Order Comment: Speci men Type: BLOOD SPECIMENOrdering Facility: [facility] Address: [address] [place] [address] Performed By: #### 5 7021-8 ####[facility] LABCLIA [id number] [place] [address] MCV (RBC) [Entitic vol] 92.3 fL Normal 80.0-100.0 [facility] Comment on above: Order Comment: Speci men Type: BLOOD SPECIMENOrdering Facility: [facility] Address: [address] [place] [address] Performed By: #### 5 7021-8 ####[facility] LABIA [id number] [place] [address] Monocytes (Bld) [#/Vol] 0.67 10*3/uL Normal <0.87 [facility] Comment on above: Order Comment: Speci men Type: BLOOD SPECIMENOrdering Facility: [facility] Address: [address] [place] [address] Performed By: #### 5 7021-8 ####[facility] LABIA [id number] [place] [address] Monocytes/100 WBC (Bld) 7.6 % Normal [facility] Comment on above: Order Comment: Speci men Type: BLOOD SPECIMENOrdering Facility: [facility] Address: [address] [place] [address] Performed By: #### 5 7021-8 ####[facility] LABCLIA [id number] [place] [address] Neutrophils (Bld) [#/Vol] 7.11 10*3/uL Normal 1.45-7.50 [facility] Comment on above: Order Comment: Speci men Type: BLOOD SPECIMENOrdering Facility: [facility] Address: [address] [place] [address] Performed By: #### 5 7021-8 ####[facility] LABCLIA [id number] [place] [address] Neutrophils/100 WBC (Bld) 80.2 % Normal [facility] Comment on above: Order Comment: Speci men Type: BLOOD SPECIMENOrdering Facility: [facility] Address: [address] [place] [address] Performed By: #### 5 7021-8 ####[facility] LABCLIA [id number] [place] [address] Nucleated RBC (Bld) [#/Vol] 10*3/uL Normal <0.01 [facility] Comment on above: Order Comment: Speci men Type: BLOOD SPECIMENOrdering Facility: [facility] Address: [address] [place] [address] Performed By: #### 5 7021-8 ####[facility] LABCLIA [id number] [place] [address] Nucleated RBC/100 WBC (Bld) [Ratio] 0.0 /100 WBC Normal [facility] Comment on above: Order Comment: Speci men Type: BLOOD SPECIMENOrdering Facility: [facility] Address: [address] [place] [address] Performed By: #### 5 7021-8 ####[facility] LABIA [id number] [place] [address] Platelet mean volume (Bld) [Entitic vol] 9.4 fL Normal 9.0-12.7 [facility] Comment on above: Order Comment: Speci men Type: BLOOD SPECIMENOrdering Facility: [facility] Address: [address] [place] [address] Performed By: #### 5 7021-8 ####[facility] LABCLIA [id number] [place] [address] Platelets (Bld) [#/Vol] 232 10*3/uL Normal 150-400 [facility] Comment on above: Order Comment: Speci men Type: BLOOD SPECIMENOrdering Facility: [facility] Address: [address] [place] [address] Performed By: #### 5 7021-8 ####[facility] LABCLIA [id number] [place] [address] RBC (Bld) [#/Vol] 4.01 10*6/uL Low 4.20-6.00 [facility] Comment on above: Order Comment: Speci men Type: BLOOD SPECIMENOrdering Facility: [facility] Address: [address] [place] [address] Performed By: #### 5 7021-8 ####[facility] LABCLIA [id number] [place] [address] WBC (Bld) [#/Vol] 8.86 10*3/uL Normal 3.70-11.00 [facility] Comment on above: Order Comment: Speci men Type: BLOOD SPECIMENOrdering Facility: [facility] Address: [address] [place] [address] Performed By: #### 5 7021-8 ####[facility] LABIA [id number] [place] [address] [facility] Carcinoembryonic Ag [Mass/Vol] 1.6 ng/mL Normal <=2.9 [facility] Comment on above: Order Comment: Speci men Type: BLOOD SPECIMENOrdering Facility: [facility] Address: [address] [place] [address] Result Comment: Carc inoembryonic antigen test is [...] used interchangeably. Performed By: #### 2 039-6 ####[facility] LABCLIA [id number] [address] [place] CNOVSPon 04-12-2025 CNOVSP Normal [facility] metabolic 2000 panelOrdered By: Ti Dooley on 04-12-2025 Albumin [Mass/Vol] 3.7 g/dL Low 3.9 - 4.9 g/dL [facility] ALP [Catalytic activity/Vol] 111 U/L 38 - 113 U/L [facility] ALT [Catalytic activity/Vol] 10 U/L 10 - 54 U/L [facility] Anion gap [Moles/Vol] 11 mmol/L 8 - 15 mmol/L [facility] AST [Catalytic activity/Vol] 14 U/L 14 - 40 U/L [facility] Bilirubin [Mass/Vol] 0.4 mg/dL 0.2 - 1 .3 mg/dL [facility] Calcium [Mass/Vol] 9.5 mg/dL 8.5 - 10. 2 mg/dL [facility] Chloride [Moles/Vol] 105 mmol/L 98 - 10 7 mmol/L [facility] CO2 [Moles/Vol] 24 mmol/L 22 - 30 mmol/L [facility] Creatinine [Mass/Vol] 0.97 mg/dL 0.73 - 1.22 mg/dL [facility] GFR/1.73 sq M.predicted among non-blacks MDRD (S/P/Bld) [Vol rate/Area] 83 mL/min/{1.73_m2} - PINF [facility] Comment on above: Estimated Glomerular Filtration Rate (eGFR) is calculated using the 202 CKD-EPI creatinine equation. This equation utilizes serum creatinine, sex, and age as parameters. The creatinine assay has traceable calibration to isotope dilution-mass spectrometry. Refer to KDIGO guidelines for clinical interpretation. In patients with unstable renal function, e.g. those with acute kidney injury, the eGFR may not accurately reflect actual GFR. Glucose [Mass/Vol] 92 mg/dL 74 - 99 mg/dL [facility] Comment on above: The [place] [employer] [place] [employer] (ADA) provides guidance for cutoff values for fasting glucose and random glucose. The ADA defines fasting as no caloric intake for at least 8 hours. Fasting plasma glucose results between 100 to 125 mg/dL indicate increased risk for diabetes (prediabetes). Fasting plasma glucose results greater than or equal to 126 mg/dL meet the criteria for diagnosis of diabetes. In the absence of unequivocal hyperglycemia, results should be confirmed by repeat testing. In a patient with classic symptoms of hyperglycemia or hyperglycemic crisis, random plasma glucose results greater than or equal to 200 mg/dL meet the criteria for diagnosis of diabetes. Reference: Standards of Medical Care in Diabetes 2016, [place] [employer]. Diabetes Care. 2016.39(Suppl 1). Interpretation and review of laboratory results Abnormal [facility] Potassium [Moles/Vol] 4.1 mmol/L 3.7 - 5.1 mmol/L [facility] Protein [Mass/Vol] 6.2 g/dL Low 6.3 - 8.0 g/dL [facility] Sodium [Moles/Vol] 140 mmol/L 136 - 144 mmol/L [facility] Urea nitrogen [Mass/Vol] 19 mg/dL 9 - 24 mg/dL [facility] Comprehensive metabolic 2000 panelon 04-12-2025 Albumin [Mass/Vol] 3.7 g/dL Low 3.9-4.9 [facility] Comment on above: Order Comment: Speci men Type: BLOOD SPECIMENOrdering Facility: [facility] Address: [address] [place] [address] Performed By: #### 2 4323-8 ####[facility] LABCLIA [id number] [place] [address] ALP [Catalytic activity/Vol] 111 U/L Normal 38-113 [facility] Comment on above: Order Comment: Speci men Type: BLOOD SPECIMENOrdering Facility: [facility] Address: [address] [place] [address] Performed By: #### 2 4323-8 ####[facility] LABCLIA [id number] [place] [address] ALT [Catalytic activity/Vol] 10 U/L Normal 10-54 [facility] Comment on above: Order Comment: Speci men Type: BLOOD SPECIMENOrdering Facility: [facility] Address: [address] [place] [address] Performed By: #### 2 4323-8 ####[facility] LABCLIA [id number] [place] [address] Anion gap [Moles/Vol] 11 mmol/L Normal 8-15 [place] Comment on above: Order Comment: Speci men Type: BLOOD SPECIMENOrdering Facility: [facility] Address: [address] [place] [address] Performed By: #### 2 4323-8 ####[facility] LABCLIA [id number] [place] [address] AST [Catalytic activity/Vol] 14 U/L Normal 14-40 [facility] Comment on above: Order Comment: Speci men Type: BLOOD SPECIMENOrdering Facility: [facility] Address: [address] [place] [address] Performed By: #### 2 4323-8 ####[facility] LABCLIA [id number] [place] [address] Bilirubin [Mass/Vol] 0.4 mg/dL Normal 0.2-1.3 [facility] Comment on above: Order Comment: Speci men Type: BLOOD SPECIMENOrdering Facility: [facility] Address: [address] [place] [address] Performed By: #### 2 4323-8 ####[facility] LABCLIA [id number] [place] [address] Calcium [Mass/Vol] 9.5 mg/dL Normal 8.5-10.2 [facility] Comment on above: Order Comment: Speci men Type: BLOOD SPECIMENOrdering Facility: [facility] Address: [address] [place] [address] Performed By: #### 2 4323-8 ####[facility] LABCLIA [id number] [place] [address] Chloride [Moles/Vol] 105 mmol/L Normal 98-107 [facility] Comment on above: Order Comment: Speci men Type: BLOOD SPECIMENOrdering Facility: [facility] Address: [address] [place] [address] Performed By: #### 2 4323-8 ####[facility] LABCLIA [id number] [place] [address] CO2 [Moles/Vol] 24 mmol/L Normal 22-30 [facility] Comment on above: Order Comment: Speci men Type: BLOOD SPECIMENOrdering Facility: [facility] Address: [address] [place] [address] Performed By: #### 2 4323-8 ####[facility] LABCLIA [id number] [place] [address] Creatinine [Mass/Vol] 0.97 mg/dL Normal 0.73-1.22 [place] Comment on above: Order Comment: Speci men Type: BLOOD SPECIMENOrdering Facility: [facility] Address: [address] [place] [address] Performed By: #### 2 4323-8 ####[facility] LABCLIA [id number] [place] [address] Creatinine and Glomerular filtration rate.predicted panel (S/P/Bld) 83 mL/min/1.73m??? Normal >=60 [facility] Comment on above: Order Comment: Speci men Type: BLOOD SPECIMENOrdering Facility: [facility] Address: [address] [place] [address] Result Comment: Rebekah mated Glomerular Filtration Rate [...] actual GFR. Performed By: #### 2 4323-8 ####[facility] LABCLIA [id number] [place] [address] Glucose [Mass/Vol] 92 mg/dL Normal 74-99 [facility] Comment on above: Order Comment: Nazario brooks Type: BLOOD SPECIMENOrdering Facility: [facility] Address: [address] [place] [address] Result Comment: The [place] [employer] (ADA) provides guidance for cutoff [...] Standards of Medical Care in Diabetes 2016, [place] [employer]. Diabetes Care. 2016.39(Suppl 1). Performed By: #### 2 4323-8 ####[facility] LABCLIA [id number] [place] [address] Potassium [Moles/Vol] 4.1 mmol/L Normal 3.7-5.1 [place] Comment on above: Order Comment: Nazario brooks Type: BLOOD SPECIMENOrdering Facility: [facility] Address: [address] [place] [address] Performed By: #### 2 4323-8 ####[facility] LABCLIA [id number] [place] [address] Protein [Mass/Vol] 6.2 g/dL Low 6.3-8.0 [facility] Comment on above: Order Comment: Nazario brooks Type: BLOOD SPECIMENOrdering Facility: [facility] Address: [address] [place] [address] Performed By: #### 2 4323-8 ####[facility] LABCLIA [id number] [place] [address] Sodium [Moles/Vol] 140 mmol/L Normal 136-144 [facility] Comment on above: Order Comment: Speci men Type: BLOOD SPECIMENOrdering Facility: [facility] Address: [address] [place], [place] [id number] Performed By: #### 2 4323-8 ####[facility] LABCLIA [id number] [place] [address] Urea nitrogen [Mass/Vol] 19 mg/dL Normal 9-24 [facility] Comment on above: Order Comment: Speci men Type: BLOOD SPECIMENOrdering Facility: [facility] Address: [address] [place], [place] [address] Performed By: #### 2 4323-8 ####[facility] LABCLIA [id number] [place] [address] [facility] CNPN Telephone (FVPRAD) MERVAT GRAYSON ([id number]) 1950 Date Time Provider Department 04/08/25 NELIA CARLSON FVPRAD During your visit today, we recorded the following information about you: Nelia Carlson, Research Coordinator 04/08/2025 1:45 PM Signed IRB# [id number]: Vascular events in patients undergoing same-day nonCardiac surgery - VALIANCE PI: Anika Barnes MD, LORENA, FASA. Outcomes Research Department. Anesthesia [place]. [facility]. This is a research study note. Patient assessments recorded here should not guide either clinical care or clinical decision-making. I spoke with patient regarding the 90 day follow-up for the VALIANCE study. The 90-day follow-up, 90-day Functional capacity, 90-day Quality of life, and 90-day Frailty forms were asked and completed by the patient over the phone. All other relevant forms were also completed if applicable to the patient. The study period is now complete. Nelia Carlson, Research Coordinator Research Fellow Outcomes Research [facility] Allergies As of Date: 04/08/2025 (No Known Allergies) Date Reviewed: 04/01/2025 Reviewed by: Deborah Norman MD - Fully Assessed Prescriptions as of 04/08/2025 - skin resp.factor/shark tracy.oil (HEMORRHOID CREAM RECTAL) by RECTAL route as needed. - rivaroxaban (XARELTO) 20 mg tablet Take 1 tablet by mouth once daily. - zolpidem (AMBIEN) 5 mg tablet Take 1 tablet by mouth at bedtime as needed for up to 180 days. - calcium carbonate (CALCIUM 600 ORAL) [...] twice daily. Problem List As Of Date 04/08/2025 Noted Resolved Pulmonary embolus with infarction (HCC) [I26.99]08/04/2018 Rectal cancer (HCC) [C20] 12/17/2022 Non-ischemic cardiomyopathy (HCC) [I42.8] 11/05/2023 RA (rheumatoid arthritis) (HCC) [M06.9] 11/05/2023 Pneumoperitoneum [K66.8] 07/23/2024 Obesity, Class I, BMI 30-34.9 [E66.811] 07/23/2024 Perforation bowel (HCC) [K63.1] 07/29/2024 S/P right colectomy [Z90.49] 07/29/2024 Intraabdominal fluid collection [R18.8] 08/14/2024 Encounter Status:Closed by NELIA CARLSON on 04/08/25 [facility] CNOVon 03-31-2025 CNOV Normal [facility] CNPNon 03-18-2025 CNPN Normal [facility] Heart and Vascular Office/Cl inic Noteon 03-10-2025 Heart and Vascular Office/Clinic Note Heart and Vascular Office/Clinic Note Chief Complaint 6 month follow up; Non-ischemic cardiopmyopathy History of Present Illness Patient is a 74-year-old male with history of nonischemic cardiomyopathy, BPH, RA, history of rectal cancer. Echo 12/2022 showed moderately reduced EF of 40-45%, normal LV and RV and no significant valvular disease. Patient comes in for 6-month follow-up today. Reviewed prior echoes. Last visit, I saw patient at which time he was continued on current medications. Patient reports that he has been doing well from a heart standpoint. However, he states that at the beginning of 07/2024 he had a perforated bowel and had to have about 1 foot of his large intestine removed. This was following a colonoscopy which showed that he did not have any recurrence of cancer. Patient states that he has been recovering well. Throughout that whole time, no one had any concerns for his heart and patient did not either. Blood pressure is well-controlled in the office today and patient is currently taking carvedilol 6.25 mg twice daily and valsartan 80 mg daily. These medications did help his pumping function as he was at about 45-50% in 2020 which improved to 50-55% in 2022. However echo in 02/12 showed EF of 40-45%. Given lower EF, discussed adding on additional medication or increasing some of his current medication to help further, but patient does not have any symptoms at this time, prefer to continue with current medications at this time and not add on anything additional Patient denies chest pain, shortness of breath, heart palpitations, dizziness/lightheadedne ss, and swelling in lower legs. REVIEWED PRIOR NOTE FROM 09/10/2024: Patient comes in for 6-month follow-up today. At last visit, I saw patient which time he was continued on current medications. Patient reports that he has been doing well from a heart standpoint. However, he states that at the beginning of 07/2024 he had a perforated bowel and had to have about 1 foot of his large intestine removed. This was following a colonoscopy which showed that he did not have any recurrence of cancer. Patient states that he has been recovering well. Throughout that whole time, no one had any concerns for his heart and patient did not either. Blood pressure is well-controlled in the office today and patient is currently taking carvedilol 6.25 mg twice daily and valsartan 80 mg daily. These medications did help his pumping function as he was at about 45-50% in 2020 which improved to 50-55% in 2022. Patient inquires about discontinuing medications, but informed him them to be afraid that his EF will drop back down if we discontinue the medications and he is agreeable to continue with them at this time. Patient denies chest pain, shortness of breath, heart palpitations, dizziness/lightheadedne ss, and swelling in lower legs. Review of Systems ROS - Provider Constitutional: no fever, no chills, no sweats, no weakness Respiratory: no shortness of breath, no cough Cardiovascular: no chest pain Neuro: no dizziness. no loss of consciousness Physical Exam Vitals & Measurements HR: 68(Peripheral) RR: 18 BP: 126/76 SpO2: 96% HT: 74 in HT: 188 cm WT: 103.6 kg WT: 228.399 lb BMI: 29.31 General: alert, no acute distress Cardiovascular: regular rate and rhythm, no murmur normal peripheral perfusion Respiratory: Lungs CTAB, respirations non labored Extremities: no edema left lower extremity. no edema right lower extremity Neurological: oriented x 4, LOC appropriate for age, speech normal Skin: Warm, dry, intact- no rash or concerning lesions Cardiac Diagnostics (01/26/2025 11:52 EDT Echo Transthoracic Complete) Interpretation Summary Ejection Fraction = 40-45%. Left ventricular ejection fraction is mildly reduced. There is mild global hypokinesis of the left ventricle. Grade I diastolic dysfunction, (abnormal relaxation pattern). [1] (01/10/2023 15:02 EDT Echo Transthoracic Complete) Interpretation Summary Normal LV size. Low normal LV systolic function, EF 50-55%. Normal RV. No significant valve disease. Normal estimated PA pressure. [1] (02/21/2021 09:52 EDT Echo Transthoracic Complete) SUMMARY/CONCLUSION: 1. Normal left ventricular size with mild global LV dysfunction with an ejection fraction around 45-50%. 2. Stage I diastolic dysfunction. 3. Trivial tricuspid regurgitation with normal RVSP of 24 mm Hg. 4. In comparison to echocardiogram dated 07/17/2019 no appreciable change is noted. [facility] with Dr. Crowley on 01/02/2019: CONCLUSIONS: 1. Essentially normal coronary arteriograms and a codominant anatomy. 2. A nonischemic cardiomyopathy, likely hypertensive related. [1] Assessment/Plan 1. Non-ischemic cardiomyopathy (I42.8: Other cardiomyopathies) Patient has history of nonischemic cardiomyopathy. Currently well-controlled on valsartan 80 mg and carvedilol 6.25 mg twice daily and his EF to monitor with his medications.. Patient does not currently have any h (more content not included)... Normal [facility] Comment on above: Result Comment: Elec tronically Signed By: Casey ESCOBAR, Pato Abraham\.br\Date and Time Signed: 03/10/25 08:29 EDT Ambulatory Visit Summaryon 0 02-15-2025 Ambulatory Visit Summary Ambulatory Visit Summary MERVAT GRAYSON :1950 Visit Date:02/15/2025 Ambulatory Visit Instructions Your Diagnosis BPH with urinary obstruction Incomplete bladder emptying Erectile dysfunction Kidney stones Your Care Team Attending Physician - Corey SINGLETON MD Primary Care Physician - Lorenzo MARIN DO This Is Your Medications List finasteride (finasteride 5 mg Tab) potassium bicarbonate (Effer-K 20 mEq oral tablet, effervescent) sildenafil (sildenafil 100 mg Tab) tamsulosin (Flomax 0.4 mg Cap) Contact prescribing physician if questions or concerns ascorbic acid (Vitamin C) ascorbic acid/chondroitin/glucos a/angelo (Glucosamine Chondroitin) carvedilol (carvedilol 6.25 mg Tab) piperacillin predniSONE (predniSONE 5 mg Tab) rivaroxaban (Xarelto 15 mg oral tablet) valsartan (valsartan 80 mg Tab) Procedures Performed Partial resection of colon (08/19/2024), Urodynamics (08/22/2023), Cystoscopy (06/04/2023), Transurethral cystoscopy (06/03/2023), Sigmoidoscopy (08/20/2022), Cataract extraction and insertion of intraocular lens (02/24/2019), Cataract extraction and insertion of intraocular lens (02/12/2019), Laparoscopic repair of inguinal hernia (01/01/2018), Cystoscopy (05/23/2016), ESWL - Extracorporeal shockwave lithotripsy for renal calculus (03/22/2016), ESWL - Extracorporeal shockwave lithotripsy for renal calculus (12/22/2015), Cystoscopy (09/28/2015), Cervical spinal fusion, Cervical spinal fusion, Colonoscopy, Hammer toe operation, Hemorrhoidectomy. Discharge Vitals Temperature (Temporal Artery) 35.9 ???C Heart Rate (Peripheral) 60 Respiratory Rate 16 Blood Pressure 158/92 Height 188 cm Height 74 in Weight 105 kg Weight 231.485 lb BMI 29.71 What to do next Scheduled Follow-Up Appointments Saturday. 2024 8:00 AM EDT With: Casey ESCOBAR, Pato Abraham Where: [facility] You Need to Schedule the Following Appointments Follow Up with RYLEE ARRINGTON, Corey Casillas, MARCUS When: Comments: 1 yr w/ CHAUNCEY Where: [facility] [address], [place] [address] [phone] You Need to Complete the Following PSA Total, Blood, Routine collect, 02/15/25, Order for future visit, Lab Collect, BPH with urinary obstruction, Required & Missing, Print Label By Order Location XR Abdomen 1 View, 02/15/25, Routine, Order for future visit, Transport Mode: Ambulatory, Reason: Kidney stone, No, Kidney stones, pp_set_radiology_subspe cialty, Not Required, Ceja - Denilson Medications What How Much When Why Instructions New potassium bicarbonate (Effer-K 20 mEq oral tablet, effervescent) 1 Tablets By Mouth 2 times a day Kidney stones Duration: 90 Days Refills: 3 Pickup at [facility] Unchanged finasteride (finasteride 5 mg Tab) 1 Tablets By Mouth Every day Duration: 90 Days Unchanged sildenafil (sildenafil 100 mg Tab) 1 Tablets By Mouth As Directed as needed for erectile dysfunction Erectile dysfunction 1 hour before sexual activity Unchanged tamsulosin (Flomax 0.4 mg Cap) 1 Capsules By Mouth 2 times a day Unchanged ascorbic acid (Vitamin C) 1,000 Milligram By Mouth Every day Contact prescribing physician if questions or concerns Unchanged ascorbic acid/ chondroitin/ glucosa/ angelo (Glucosamine Chondroitin) 1500mg/1200mg By Mouth Every day Contact prescribing physician if questions or concerns Unchanged carvedilol (carvedilol 6.25 mg Tab) 1 Tablets By Mouth 2 times a day Contact prescribing physician if questions or concerns Unchanged piperacillin Contact prescribing physician if questions or concerns Unchanged predniSONE (predniSONE 5 mg Tab) take 1 tablet by mouth daily as directed START AFTER TAPER Contact prescribing physician if questions or concerns Unchanged rivaroxaban (Xarelto 15 mg oral tablet) 1 Tablets By Mouth Contact prescribing physician if questions or concerns Unchanged valsartan (valsartan 80 mg Tab) 1 Tablets By Mouth Every day Duration: 90 Days Contact prescribing physician if questions or concerns Pharmacy Information [facility]: [address] [place], [place] [id number] [phone] Allergies No Known Allergies Problems Ongoing - Any problem that you are currently receiving treatment for. BMI 31.0-31.9,adult BPH with urinary obstruction Cervical spinal stenosis Erectile dysfunction Incomplete bladder emptying Kidney stones Neck pain without injury Non-ischemic cardiomyopathy Prostate cancer screening RA - Rheumatoid arthritis Rectal cancer Sleep apnea Smoker Spinal stenosis in cervical region Tobacco non-user Patient Survey You may receive a survey via text or e-mail asking about your office visit. Please share your experience with us by completing your survey. We appreciate your feedback and thank you for choosing us for your care. Education Materials Kidney Stones Kidney stones are rock-like (more content not included)... Normal [facility] Urology Office/Clinic Noteon 02-15-2025 Urology Office/Clinic Note Urology Office/Clinic Note Chief Complaint 1 year folllow up HPI Staff 74 year old male patient here for 1 year follow up with PSA. Previous Dx:BPH with urinary obstruction, ED, kidney stones and rectal cancer. S/P Urodynamics done 08/22/23 *flomax 0.4 mg bid, sildenafil 100 mg prn, finasteride 5 mg qd Current PSA:02/14/2024- 0.1 (0.2 finasteride) Previous PSA 09/2021- 1.6 Denies abdominal/flank pain, denies dysuria and denies hematuria. IPSS: 15 PVR: 121 ml History of Present Illness Tests reviewed: reviewed UA, PSA, PVR I have reviewed the previous health record information and history for this patient from Dr. Singleton. I have reviewed and verified the staff HPI to be accurate for this encounter. Review of Systems PHQ Score Initial Depression Screen Score: 0 SCORE ROS - Provider Constitutional: denies weight loss, denies hot flashes. Eyes: denies eye problems. Gastrointestinal: denies nausea, denies vomiting. Cardiovascular: denies chest pain or angina. Integumentary: no dryness Musculoskeletal: denies musculoskeletal symptoms. ENMT: denies otolaryngeal symptoms. Respiratory: no shortness of breath. Heme/Lymph: denies easy bleeding tendency, denies easy bruising tendency. Psychiatric: no confusion, no anxiety. Genitourinary: See HPI. Physical Exam Vitals & Measurements T: 35.9 ???C(Temporal Artery) HR: 60(Peripheral) RR: 16 BP: 158/92 HT: 74 in HT: 188 cm WT: 231.485 lb WT: 105 kg BMI: 29.71 General Appearance: alert, no distress, well nourished, well developed male. Assessment/Plan 1. BPH with urinary obstruction (N40.1: Benign prostatic hyperplasia with lower urinary tract symptoms) PSA: 11/06/19 - 0.9 09/25/21 - 1.6 02/14/24 - 0.1 (0.2 Finasteride) MRI 09/14/22 (done for ca work-up) showed normal prostate. S/p cysto 06/04/23 prostatic urethra showed bilobar hypertrophy with near coaptation of the lobes. The prostate length was less than 3 cm. Moderate trabeculation. S/p urodynamics 08/22/23 does show pt is obstructed urodynamically. -Candidate for TURP PSA has decreased significantly, likely secondary to prior radiation for rectal cancer. Will cont to monitor. IPSS 15 (25). UA today shows trace-intact blood (not clinically significant), neg for infection. Denies gross hematuria. Taking Flomax 0.4 mg bid and Finasteride 5 mg qd. PVR 121 mL. Reports post-void dribbling, dabs w toilet paper after voiding. Discussed radiation changes contributing to changes in urination. Advised pt sxs should continue to improve over time. -Cont Flomax bid and Finasteride qd. Pt to call for refills. -Cont sx monitoring -PSA in 1 yr 2. Incomplete bladder emptying (R33.9: Retention of urine, unspecified) See #1. 3. Erectile dysfunction (N52.9: Male erectile dysfunction, unspecified) Pt has taken Sildenafil in the past, up to 80mg. Pt states it worked for a long time, but had recently become less ineffective. Tried Cialis 20mg prn but had no improvement, so restarted Sildenafil at prior OV. 4. Kidney stones (N20.0: Calculus of kidney) CT AP w IV con 12/20/23 (ordered by Dr. Anderson) mild bilateral renal cortical atrophy. Numerous bilateral parapelvic renal cysts. Nonobstructing renal calculi bilaterally. Has taken Potassium Citrate in the past, but then stopped. Was willing to restart medication previously, however there was a contraindication with the antiemetic he was on for chemo. Pt shares he is no longer on chemo for his rectal cancer and does not have plans to restart this. Advised pt we can restart Effer-K to help prevent stone growth/formation. Pt amenable to proceed. -Restart Effer-K 20 mEq bid. Rx sent to [facility]. -F/u in 1yr w/ KUB Follow-up With When Contact Information RYLEE ARRINGTON, Corey Casillas, URL [facility] [address], [place] [address]- [phone] Additional Instructions: 1 yr w/ KUB and PSA Patient Education Kidney Stones, [id number] Kristan Milton, personally scribed for Dr. Singleton on 02/15/2025 09:38:26. . Documentation recorded by the [email or web address] perez, accurately reflects the services(s) I performed and decisions made by me. Authenticated by Dr. Singleton on 02/15/2025 09:39:40. Problem List/Past Medical History Ongoing BMI 31.0-31.9,adult BPH with urinary obstruction Cervical spinal stenosis Erectile dysfunction Incomplete bladder emptying Kidney stones Neck pain without injury Non-ischemic cardiomyopathy Prostate cancer screening RA - Rheumatoid arthritis Rectal cancer Sleep apnea Smoker Spinal stenosis in cervical region Tobacco non-user Historical No qualifying data Procedure/Surgical History Partial resection of colon (08/19/2024), Urodynamics (08/22/2023), Cystoscopy (06/04/2023), Transurethral cystoscopy (06/03/2023), Sigmoidoscopy (08/20/2022), Cataract extraction and insertion of intraocular lens (02/24/2019), Cataract extraction and insertion of (more content not included)... Normal [facility] Comment on above: Result Comment: Elec tronically Signed By: RYLEE ARRINGTON, Corey Casillas\.br\Date and Time Signed: 02/15/25 09:39 EDT\.br\Electronically Co-Signed By: Kristan Murrell\.br\Date and Time Co-Signed: 02/15/25 09:38 EDT CBC W Auto Differential pane l (Bld)on 01-11-2025 Basophils (Bld) [#/Vol] 0.06 10*3/uL [facility] Basophils/100 WBC (Bld) 0.9 % [facility] Differential cell count method Nom (Bld) Auto [facility] Eosinophils (Bld) [#/Vol] 0.43 10*3/uL [facility] Eosinophils/100 WBC (Bld) 6.3 % [facility] Erythrocyte distribution width (RBC) [Ratio] 17.6 % High 11.5 - 15.0 % [facility] Hematocrit (Bld) [Volume fraction] 36.8 % Low 39.0 - 51.0 % [facility] Hemoglobin (Bld) [Mass/Vol] 11.6 g/dL Low 13.0 - 17.0 g/dL [facility] Immature granulocytes (Bld) [#/Vol] 0.03 10*3/uL [facility] Immature granulocytes/100 WBC (Bld) 0.4 % [facility] Interpretation and review of laboratory results Abnormal [facility] Lymphocytes (Bld) [#/Vol] 1.39 10*3/uL [facility] Lymphocytes/100 WBC (Bld) 20.3 % [facility] MCH (RBC) [Entitic mass] 28.6 pg 26.0 - 34.0 pg [facility] MCHC (RBC) [Mass/Vol] 31.5 g/dL 30.5 - 36.0 g/dL [facility] MCV (RBC) [Entitic vol] 90.6 fL 80.0 - 100.0 fL [facility] Monocytes (Bld) [#/Vol] 0.62 10*3/uL [facility] Monocytes/100 WBC (Bld) 9 % [facility] Neutrophils (Bld) [#/Vol] 4.33 10*3/uL [facility] Neutrophils/100 WBC (Bld) 63.1 % [facility] Nucleated RBC (Bld) [#/Vol] NINF [facility] Nucleated RBC/100 WBC (Bld) [Ratio] 0 % /100 WBC [facility] Platelet mean volume (Bld) [Entitic vol] 9.9 fL 9.0 - 12.7 fL [facility] Platelets (Bld) [#/Vol] 270 10*3/uL [facility] RBC (Bld) [#/Vol] 4.06 10*6/uL Low 4.20 - 6.0 0 m/uL [facility] WBC (Bld) [#/Vol] 6.86 10*3/uL [facility] Basophils (Bld) [#/Vol] 0.06 10*3/uL Normal <0.11 [facility] Comment on above: Order Comment: Speci men Type: BLOOD SPECIMENOrdering Facility: [facility] Address: [address] [place] [address] Performed By: #### 5 7021-8 ####[facility] LABCLIA [id number] [place] [address] Basophils/100 WBC (Bld) 0.9 % Normal [facility] Comment on above: Order Comment: Speci men Type: BLOOD SPECIMENOrdering Facility: [facility] Address: [address] [place] [address] Performed By: #### 5 7021-8 ####[facility] LABCLIA [id number] [place] [address] Differential cell count method Nom (Bld) Auto Normal [facility] Comment on above: Order Comment: Speci men Type: BLOOD SPECIMENOrdering Facility: [facility] Address: [address] [place] [address] Performed By: #### 5 7021-8 ####[facility] LABCLIA [id number] [place] [address] Eosinophils (Bld) [#/Vol] 0.43 10*3/uL Normal <0.46 [facility] Comment on above: Order Comment: Speci men Type: BLOOD SPECIMENOrdering Facility: [facility] Address: [address] [place] [address] Performed By: #### 5 7021-8 ####[facility] LABCLIA [id number] [place] [address] Eosinophils/100 WBC (Bld) 6.3 % Normal [facility] Comment on above: Order Comment: Speci men Type: BLOOD SPECIMENOrdering Facility: [facility] Address: [address] [place] [address] Performed By: #### 5 7021-8 ####[facility] LABCLIA [id number] [place] [address] Erythrocyte distribution width (RBC) [Ratio] 17.6 % High 11.5-15.0 [facility] Comment on above: Order Comment: Speci men Type: BLOOD SPECIMENOrdering Facility: [facility] Address: [address] [place] [address] Performed By: #### 5 7021-8 ####[facility] LABCLIA [id number] [place] [address] Hematocrit (Bld) [Volume fraction] 36.8 % Low 39.0-51.0 [facility] Comment on above: Order Comment: Speci men Type: BLOOD SPECIMENOrdering Facility: [facility] Address: [address] [place] [address] Performed By: #### 5 7021-8 ####[facility] LABCLIA [id number] [place] [address] Hemoglobin (Bld) [Mass/Vol] 11.6 g/dL Low 13.0-17.0 [facility] Comment on above: Order Comment: Speci men Type: BLOOD SPECIMENOrdering Facility: [facility] Address: [address] [place] [address] Performed By: #### 5 7021-8 ####[facility] LABCLIA [id number] [place] [address] Immature granulocytes (Bld) [#/Vol] 0.03 10*3/uL Normal <0.10 [facility] Comment on above: Order Comment: Speci men Type: BLOOD SPECIMENOrdering Facility: [facility] Address: [address] [place] [address] Performed By: #### 5 7021-8 ####[facility] LABCLIA [id number] [place] [address] Immature granulocytes/100 WBC (Bld) 0.4 % Normal [facility] Comment on above: Order Comment: Speci men Type: BLOOD SPECIMENOrdering Facility: [facility] Address: [address] [place] [address] Performed By: #### 5 7021-8 ####[facility] LABCLIA [id number] [place] [address] Lymphocytes (Bld) [#/Vol] 1.39 10*3/uL Normal 1.00-4.00 [facility] Comment on above: Order Comment: Speci men Type: BLOOD SPECIMENOrdering Facility: [facility] Address: [address] [place] [address] Performed By: #### 5 7021-8 ####[facility] LABCLIA [id number] [place] [address] Lymphocytes/100 WBC (Bld) 20.3 % Normal [facility] Comment on above: Order Comment: Speci men Type: BLOOD SPECIMENOrdering Facility: [facility] Address: [address] [place] [address] Performed By: #### 5 7021-8 ####[facility] LABCLIA [id number] [place] [address] MCH (RBC) [Entitic mass] 28.6 pg Normal 26.0-34.0 [facility] Comment on above: Order Comment: Speci men Type: BLOOD SPECIMENOrdering Facility: [facility] Address: [address] [place] [address] Performed By: #### 5 7021-8 ####[facility] LABCLIA [id number] [place] [address] MCHC (RBC) [Mass/Vol] 31.5 g/dL Normal 30.5-36.0 [place] Comment on above: Order Comment: Speci men Type: BLOOD SPECIMENOrdering Facility: [facility] Address: [address] [place] [address] Performed By: #### 5 7021-8 ####[facility] LABCLIA [id number] [place] [address] MCV (RBC) [Entitic vol] 90.6 fL Normal 80.0-100.0 [facility] Comment on above: Order Comment: Speci men Type: BLOOD SPECIMENOrdering Facility: [facility] Address: [address] [place] [address] Performed By: #### 5 7021-8 ####[facility] LABCLIA [id number] [place] [address] Monocytes (Bld) [#/Vol] 0.62 10*3/uL Normal <0.87 [facility] Comment on above: Order Comment: Speci men Type: BLOOD SPECIMENOrdering Facility: [facility] Address: [address] [place] [address] Performed By: #### 5 7021-8 ####[facility] LABCLIA [id number] [place] [address] Monocytes/100 WBC (Bld) 9.0 % Normal [facility] Comment on above: Order Comment: Speci men Type: BLOOD SPECIMENOrdering Facility: [facility] Address: [address] [place] [address] Performed By: #### 5 7021-8 ####[facility] LABCLIA [id number] [place] [address] Neutrophils (Bld) [#/Vol] 4.33 10*3/uL Normal 1.45-7.50 [facility] Comment on above: Order Comment: Speci men Type: BLOOD SPECIMENOrdering Facility: [facility] Address: [address] [place] [address] Performed By: #### 5 7021-8 ####[facility] LABCLIA [id number] [place] [address] Neutrophils/100 WBC (Bld) 63.1 % Normal [facility] Comment on above: Order Comment: Speci men Type: BLOOD SPECIMENOrdering Facility: [facility] Address: [address] [place] [address] Performed By: #### 5 7021-8 ####[facility] LABCLIA [id number] [place] [address] Nucleated RBC (Bld) [#/Vol] 10*3/uL Normal <0.01 [facility] Comment on above: Order Comment: Speci men Type: BLOOD SPECIMENOrdering Facility: [facility] Address: [address] [place] [address] Performed By: #### 5 7021-8 ####[facility] LABCLIA [id number] [place] [address] Nucleated RBC/100 WBC (Bld) [Ratio] 0.0 /100 WBC Normal [facility] Comment on above: Order Comment: Speci men Type: BLOOD SPECIMENOrdering Facility: [facility] Address: [address] [place] [address] Performed By: #### 5 7021-8 ####[facility] LABCLIA [id number] [place] [address] Platelet mean volume (Bld) [Entitic vol] 9.9 fL Normal 9.0-12.7 [facility] Comment on above: Order Comment: Speci men Type: BLOOD SPECIMENOrdering Facility: [facility] Address: [address] [place] [address] Performed By: #### 5 7021-8 ####[facility] LABIA [id number] [place] [address] Platelets (Bld) [#/Vol] 270 10*3/uL Normal 150-400 [facility] Comment on above: Order Comment: Speci men Type: BLOOD SPECIMENOrdering Facility: [facility] Address: [address] [place] [address] Performed By: #### 5 7021-8 ####[facility] LABIA [id number] [place] [address] RBC (Bld) [#/Vol] 4.06 10*6/uL Low 4.20-6.00 [facility] Comment on above: Order Comment: Speci men Type: BLOOD SPECIMENOrdering Facility: [facility] Address: [address] [place] [address] Performed By: #### 5 7021-8 ####[facility] LABIA [id number] [place] [address] WBC (Bld) [#/Vol] 6.86 10*3/uL Normal 3.70-11.00 [facility] Comment on above: Order Comment: Speci men Type: BLOOD SPECIMENOrdering Facility: [facility] Address: [address] [place] [address] Performed By: #### 5 7021-8 ####[facility] LABIA [id number] [place] [address] CNOVSPon 01-11-2025 CNOVSP Normal [facility] metabolic 2000 panelOrdered By: Ti Dooley on 01-11-2025 Albumin [Mass/Vol] 3.7 g/dL Low 3.9 - 4.9 g/dL [facility] ALP [Catalytic activity/Vol] 110 U/L 38 - 113 U/L [facility] ALT [Catalytic activity/Vol] 7 U/L Low 10 - 54 U/L [facility] Anion gap [Moles/Vol] 9 mmol/L 8 - 15 mmol/L [facility] AST [Catalytic activity/Vol] 10 U/L Low 14 - 40 U/L [facility] Bilirubin [Mass/Vol] 0.3 mg/dL 0.2 - 1 .3 mg/dL [facility] Calcium [Mass/Vol] 8.8 mg/dL 8.5 - 10. 2 mg/dL [facility] Chloride [Moles/Vol] 106 mmol/L 98 - 10 7 mmol/L [facility] CO2 [Moles/Vol] 26 mmol/L 22 - 30 mmol/L [facility] Creatinine [Mass/Vol] 1.15 mg/dL 0.73 - 1.22 mg/dL [facility] GFR/1.73 sq M.predicted among non-blacks MDRD (S/P/Bld) [Vol rate/Area] 68 mL/min/{1.73_m2} - PINF [facility] Comment on above: Estimated Glomerular Filtration Rate (eGFR) is calculated using the 2020 CKD-EPI creatinine equation. This equation utilizes serum creatinine, sex, and age as parameters. The creatinine assay has traceable calibration to isotope dilution-mass spectrometry. Refer to KDIGO guidelines for clinical interpretation. In patients with unstable renal function, e.g. those with acute kidney injury, the eGFR may not accurately reflect actual GFR. Glucose [Mass/Vol] 94 mg/dL 74 - 99 mg/dL [facility] Comment on above: The [place] [employer] (ADA) provides guidance for cutoff values for fasting glucose and random glucose. The ADA defines fasting as no caloric intake for at least 8 hours. Fasting plasma glucose results between 100 to 125 mg/dL indicate increased risk for diabetes (prediabetes). Fasting plasma glucose results greater than or equal to 126 mg/dL meet the criteria for diagnosis of diabetes. In the absence of unequivocal hyperglycemia, results should be confirmed by repeat testing. In a patient with classic symptoms of hyperglycemia or hyperglycemic crisis, random plasma glucose results greater than or equal to 200 mg/dL meet the criteria for diagnosis of diabetes. Reference: Standards of Medical Care in Diabetes 2016, [place] [employer]. Diabetes Care. 2016.39(Suppl 1). Interpretation and review of laboratory results Abnormal [facility] Potassium [Moles/Vol] 4.1 mmol/L 3.7 - 5.1 mmol/L [facility] Protein [Mass/Vol] 6.2 g/dL Low 6.3 - 8.0 g/dL [facility] Sodium [Moles/Vol] 141 mmol/L 136 - 144 mmol/L [facility] Urea nitrogen [Mass/Vol] 17 mg/dL 9 - 24 mg/dL [facility] Comprehensive metabolic 2000 panelon 01-11-2025 Albumin [Mass/Vol] 3.7 g/dL Low 3.9-4.9 [facility] Comment on above: Order Comment: Speci men Type: BLOOD SPECIMENOrdering Facility: [facility] Address: [address] [place] [address] Performed By: #### 2 4323-8 ####[facility] LABCLIA [id number] [place] [address] ALP [Catalytic activity/Vol] 110 U/L Normal 38-113 [facility] Comment on above: Order Comment: Speci men Type: BLOOD SPECIMENOrdering Facility: [facility] Address: [address] [place] [address] Performed By: #### 2 4323-8 ####[facility] LABCLIA [id number] [place] [address] ALT [Catalytic activity/Vol] 7 U/L Low 10-54 [facility] Comment on above: Order Comment: Speci men Type: BLOOD SPECIMENOrdering Facility: [facility] Address: [address] [place] [address] Performed By: #### 2 4323-8 ####[facility] LABCLIA [id number] [place] [address] Anion gap [Moles/Vol] 9 mmol/L Normal 8-15 [place] Comment on above: Order Comment: Speci men Type: BLOOD SPECIMENOrdering Facility: [facility] Address: [address] [place] [address] Performed By: #### 2 4323-8 ####[facility] LABCLIA [id number] [place] [address] AST [Catalytic activity/Vol] 10 U/L Low 14-40 [facility] Comment on above: Order Comment: Speci men Type: BLOOD SPECIMENOrdering Facility: [facility] Address: [address] [place] [address] Performed By: #### 2 4323-8 ####[facility] LABCLIA [id number] [place] [address] Bilirubin [Mass/Vol] 0.3 mg/dL Normal 0.2-1.3 [facility] Comment on above: Order Comment: Speci men Type: BLOOD SPECIMENOrdering Facility: [facility] Address: [address] [place] [address] Performed By: #### 2 4323-8 ####[facility] LABCLIA [id number] [place] [address] Calcium [Mass/Vol] 8.8 mg/dL Normal 8.5-10.2 [facility] Comment on above: Order Comment: Speci men Type: BLOOD SPECIMENOrdering Facility: [facility] Address: [address] [place] [address] Performed By: #### 2 4323-8 ####[facility] LABCLIA [id number] [place] [address] Chloride [Moles/Vol] 106 mmol/L Normal 98-107 [facility] Comment on above: Order Comment: Speci men Type: BLOOD SPECIMENOrdering Facility: [facility] Address: [address] [place] [address] Performed By: #### 2 4323-8 ####[facility] LABCLIA [id number] [place] [address] CO2 [Moles/Vol] 26 mmol/L Normal 22-30 [facility] Comment on above: Order Comment: Speci men Type: BLOOD SPECIMENOrdering Facility: [facility] Address: [address] [place] [address] Performed By: #### 2 4323-8 ####[facility] LABCLIA [id number] [place] [address] Creatinine [Mass/Vol] 1.15 mg/dL Normal 0.73-1.22 [place] Comment on above: Order Comment: Speci men Type: BLOOD SPECIMENOrdering Facility: [facility] Address: [address] [place] [address] Performed By: #### 2 4323-8 ####[facility] LABCLIA [id number] [place] [address] Creatinine and Glomerular filtration rate.predicted panel (S/P/Bld) 68 mL/min/1.73m??? Normal >=60 [facility] Comment on above: Order Comment: Speci men Type: BLOOD SPECIMENOrdering Facility: [facility] Address: [address] [place] [address] Result Comment: Rebekah mated Glomerular Filtration Rate [...] actual GFR. Performed By: #### 2 4323-8 ####[facility] LABCLIA [id number] [place] [address] Glucose [Mass/Vol] 94 mg/dL Normal 74-99 [facility] Comment on above: Order Comment: Speci men Type: BLOOD SPECIMENOrdering Facility: [facility] Address: [address] [id number] Result Comment: The [place] [employer] (ADA) provides guidance for cutoff [...] Standards of Medical Care in Diabetes 2016, [place] [employer]. Diabetes Care. 2016.39(Suppl 1). Performed By: #### 2 4323-8 ####[facility] LABCLIA [id number] [place] [address] Potassium [Moles/Vol] 4.1 mmol/L Normal 3.7-5.1 [place] Comment on above: Order Comment: Speci men Type: BLOOD SPECIMENOrdering Facility: [facility] Address: [address] [place] [address] Performed By: #### 2 4323-8 ####[facility] LABCLIA [id number] [place] [address] Protein [Mass/Vol] 6.2 g/dL Low 6.3-8.0 [facility] Comment on above: Order Comment: Speci men Type: BLOOD SPECIMENOrdering Facility: [facility] Address: [address] [place] [address] Performed By: #### 2 4323-8 ####[facility] LABCLIA [id number] [place] [address] Sodium [Moles/Vol] 141 mmol/L Normal 136-144 [facility] Comment on above: Order Comment: Speci men Type: BLOOD SPECIMENOrdering Facility: [facility] Address: [address] [place] [address] Performed By: #### 2 4323-8 ####[facility] LABCLIA [id number] [place] [address] Urea nitrogen [Mass/Vol] 17 mg/dL Normal 9-24 [facility] Comment on above: Order Comment: Speci men Type: BLOOD SPECIMENOrdering Facility: [facility] Address: [facility] [place] [address] Performed By: #### 2 4323-8 ####[facility] LABCLIA [id number] [place] [address] ANES POSTPROC EVALon 025 ANES POSTPROC EVAL HNO ID: [id number] Author: MK LEE DO Service: Anesthesiology Author Type: Anesthesiologist Type: Anesthesia Postprocedure Evaluation Filed: 01/04/2025 16:28 Note Text: POST ANESTHESIA EVALUATION NOTE : 1950 Procedure Summary Date: 01/04/25 Room / Location: OR10 / [facility] OR Anesthesia Start: 1437 Anesthesia Stop: 1542 Procedure: INCISION AND DRAINAGE ABSCESS ABDOMEN SIMPLE OR SINGLE (Right: Abdomen quadrant lower) Diagnosis: Abdominal wall abscess (Abdominal wall abscess [L02.211]) Surgeons: Deborah Norman MD Responsible Provider: Mk Lee DO Anesthesia Type: general ASA Status: 4 Anesthesia Type: general Airway Type: LMA Last Vitals Vitals Value Taken Time BP 129/86 01/04/25 1615 Temp 36.7 ?C (98.1 ?F) 01/04/25 1542 Pulse 62 01/04/25 1627 Resp 12 01/04/25 1627 SpO2 94 % 01/04/25 1627 Vitals shown include unfiled device data. Post [...] significant post operative nausea or vomiting Recommendation: further care per PACU/ICU/floor team. Anesthesia Observations No Documentation SIGNATURE: Mk Lee DO PATIENT NAME: Mervat Grayson DATE: January 04, 2025 TIME: 4:28 PM CSN: [id number] [facility] ANES PRE-OPon 01-04-2025 ANES PRE-OP HNO ID: [id number] Author: MK LEE DO Service: Anesthesiology Author Type: Anesthesiologist Type: Anesthesia Preprocedure Evaluation Filed: 01/04/2025 14:15 Note Text: ANESTHESIOLOGY DAY OF SURGERY NOTE : 1950 Procedure Information Date/Time: 01/04/25 1412 Procedure: INCISION AND DRAINAGE ABSCESS ABDOMEN SIMPLE OR SINGLE (Right: Abdomen quadrant lower) Location: [facility] OR10 / [facility] OR Surgeons: Deborah Norman MD Estimated body mass index is 28.33 kg/m? as calculated from the following: Height as of 11/24/24: 188 cm (6' 2 ). Weight as of 12/07/24: 100.1 kg (220 lb 10.9 oz). Most recent hematocrit and potassium results: Hemoglobin (g/dL) Date Value 12/24/2024 11.8 08/04/2018 14.3 Hematocrit (%) Date Value 12/24/2024 36.6 08/04/2018 43.1 WBC (k/uL) Date Value 12/24/2024 8.85 08/04/2018 6.24 Platelet Count (k/uL) Date Value 12/24/2024 272 08/04/2018 216 CMP: Glucose 87 12/24/2024 BUN 16 12/24/2024 Creatinine 1.03 12/24/2024 Sodium 143 12/24/2024 Potassium 4.2 12/24/2024 Chloride 107 12/24/2024 CO2 26 12/24/2024 Protein, Total 6.5 12/24/2024 Albumin 3.8 12/24/2024 Calcium 9.1 12/24/2024 Alkaline Phosphatase 105 12/24/2024 Bilirubin, Total 0.6 12/24/2024 AST 10 12/24/2024 ALT 6 12/24/2024 Relevant Problems PULMONARY (+) Pulmonary embolus with infarction (HCC) Cardiovascular (+) Non-ischemic cardiomyopathy (HCC) Gastrointestinal (+) Intraabdominal fluid collection (+) Perforation bowel (HCC) Oncology (+) Rectal cancer (HCC) Other (+) Obesity, Class I, BMI 30-34.9 (+) RA (rheumatoid arthritis) (HCC) I - PHYSICAL EVALUATION AIRWAY Patient intubated: No. Tracheostomy tube not present Mallampati: II. TM distance: >3 FB. Neck ROM: full ROM without neurological symptoms. Mouth opening: adequate. Short neck: no. Thick neck: yes DENTAL Dental findings: missing tooth/teeth. Dentures, upper: complete. Dentures, lower: partial. II - ANESTHESIA PLAN ASA Score: 4 Anesthetic Plan: general Airway type: LMA The patient is not a current smoker. NPO Status: adequate Beta Taina Administration of chronic beta taina medication planned. Monitoring Plan Monitoring plan: standard ASA. Post Procedure Analgesic Plan Postoperative analgesic plan: parenteral or oral opioids and multimodal analgesia. Informed Consent Anesthetic risks, benefits, alternatives, personnel and consent discussed: yes. Patient / Responsible Constitution Party agrees to proceed: yes Patient / Surrogate agrees to blood products: Yes DNR status not reviewed with patient and/or family prior to surgery. Significant changes in the patient condition since the History and Physical, not otherwise documented in primary service progress note: no. Potential Anesthesia issues that may suggest increased risk of complications or contraindication to planned procedure: none. Vitals Value Taken Time BP 140/88 01/04/25 1153 Pulse 70 01/04/25 1153 Resp 16 01/04/25 1153 Temp 36.4 ?C (97.5 ?F) 01/04/25 1153 SpO2 94 % 01/04/25 1153 Facility-Administered Medications as of 01/04/2025 Medication Dose Route Frequency lidocaine (PF) 10 mg/mL (1 %) 1-2 mg injection (XYLOCAINE) 0.1-0.2 mL INTRADERMAL PRN lactated ringers iv infusion 5-30 mL/hr INTRAVENOUS CONTINUOUS NaCl 0.9% iv flush bag 20 mL INTRAVENOUS PRN cefTRIAXone 2 g in D5W 100 mL Vial-Bag (ROCEPHIN) 2 g INTRAVENOUS Pre-Op Once metroNIDAZOLE iv piggyback 500 mg in NaCl (iso-osmotic) 100 mL (FLAGYL) 500 mg INTRAVENOUS Pre-Op Once heparin 5,000 Units injection 5,000 Units SUBCUTANEOUS ONCE [COMPLETED] acetaminophen 1,000 mg tab(s) (TYLENOL) 1,000 mg ORAL Pre-Op Once lactated ringers iv infusion 30 mL/hr INTRAVENOUS CONTINUOUS Outpatient Medications as of 01/04/2025 Medication Sig calcium carbonate (CALCIUM 600 ORAL) Take 1 tablet by mouth once daily. glucosamine/chondr perez A sod (GLUCOSAMINE-CHONDROITI N) 1,500-1,200 mg/30 mL liqd Take by mouth once daily. predniSONE (DELTASONE) 5 mg tablet Take 5 mg by mouth once daily. valsartan (DIOVAN) 80 mg tablet Take 80 mg by mouth once daily. carvedilol (COREG) 6.25 mg tablet Take 6.25 mg by mouth twice daily with meals. tamsulosin ER (FLOMAX) 0.4 mg cap Take 0.4 mg by mouth twice daily. Ascorbic Acid 100 mg tablet Take 100 mg by mouth twice daily. oxyCODONE-acetaminophen (PERCOCET) 5-325 mg tablet Take 1 tablet by mouth every 6 hours as needed for up to 28 days. zolpidem (AMBIEN) 5 mg tablet Take 1 tablet by mouth at bedtime as needed for up to 30 days. XARELTO 20 mg tablet TAKE ONE TABLET BY MOUTH DAILY WITH DINNER I have interviewed and examined the patient. I have reviewed the medical record and/or the pre-anesthesia evaluation, pertinent labs, and test results. This contains updated information obtained within 48 hours of Surgery/Procedure. SIGNATURE: Mk Lee DO PATIENT NAME: Mervat Grayson DATE: January 04, 2025 TIME: 2:01 PM CSN: [id number] (more content not included)... [facility] BRIEF OP NOTon 01-04-2025 BRIEF OP NOT HNO ID: [id number] Author: JOANNE JUNG MD Service: Colorectal Author Type: Resident Type: Brief Op Note Filed: 01/04/2025 15:37 Note Text: COLORECTAL SURGERY BRIEF OPERATIVE NOTE Mervat Grayson [id number] LOG ID: [id number] Surgery/Procedure Date: 01/04/2025 Incision/Procedure Start Time: 3:19 PM Incision Close/Procedure End Time: 3:33 PM Surgeon(s)/Proceduralis t(s) and Emergency Detail Driver(s): Surgeons and Role: * Deborah Norman MD - Primary * Joanne Jung MD - Resident - Assisting Procedure(s): Procedure(s) and Anesthesia Type: * INCISION AND DRAINAGE ABSCESS ABDOMEN SIMPLE OR SINGLE - Monitored Anesthesia Care Anesthesia: Monitored Anesthesia Care Findings: R abdominal abscess and possible fistula tract, drained and excised. Estimated Blood Loss: 5 mls Specimens: ID Type Source Tests Collected by Time Destination A : abdominal wall abscess cavity Tissue Abscess (Specify site in comment) SURGICAL PATHOLOGY Deborah Norman MD 01/04/2025 3:20 PM Complications: None Wound Classification: Dirty or Infected Diagnosis: Pre-Op Diagnosis Codes: * Abdominal wall abscess [L02.211] Post-Op Diagnosis Codes: * Same as preoperative diagnosis SIGNATURE: Joanne Jung MD PATIENT NAME: Mervat Grayson DATE: January 04, 2025 TIME: 3:36 PM PAGER/CONTACT #: [phone] [facility] HISTORY PHYSICALon HISTORY PHYSICAL HNO ID: [id number] Author: DEBORAH NORMAN MD Service: Colorectal Author Type: Physician Type: H&P Filed: 01/04/2025 12:44 Note Text: New Patient Consult History of Present Illness: Right abdominal wall abscess at former drain site, possible fistula from anastomosis, here for drainage PAST MEDICAL HISTORY Diagnosis Date Acute low back pain with possible spinal stenosis of less than six weeks' duration Adenocarcinoma of rectum (HCC) Arthritis Bilateral renal cysts peripelvic BPH with urinary obstruction Cholelithiasis History of kidney stones Non-ischemic cardiomyopathy (HCC) Perforation bowel (HCC) 07/29/2024 Pulmonary emboli (HCC) 2020 left lower lobe [...] Never Smokeless tobacco: Never Vaping Use Vaping status: Never Used Substance Use Topics Alcohol use: Yes Comment: rarely Drug use: No The patient has the following: Problem List Noted Noted By Resolved Resolved By Intraabdominal fluid collection 08/14/2024 Raya Pierce MD No Perforation bowel (HCC) 07/29/2024 Shamir De La Torre MD No S/P right colectomy 07/29/2024 Shamir De La Torre MD No Pneumoperitoneum 07/23/2024 Deborah Norman MD No Obesity, Class I, BMI 30-34.9 07/23/2024 Vicente Madison MD No Non-ischemic cardiomyopathy (HCC) 11/05/2023 Paola Lewis MD No RA (rheumatoid arthritis) (HCC) 11/05/2023 Paola Lewis MD No Rectal cancer (HCC) 12/17/2022 Minerva Anderson MD No Pulmonary embolus with infarction (HCC) 08/04/2018 Edward Kaufman DO No MEDICATIONS Current Facility-Administered Medications Medication Dose Route Frequency Provider Last Rate Last Admin lidocaine (PF) 10 mg/mL (1 %) 1-2 mg injection (XYLOCAINE) 0.1-0.2 mL INTRADERMAL PRN Kyler Treviño MD lactated ringers iv infusion 5-30 mL/hr INTRAVENOUS CONTINUOUS Kyler Treviño MD NaCl 0.9% iv flush bag 20 mL INTRAVENOUS PRN Kyler Treviño MD cefTRIAXone 2 g in D5W 100 mL Vial-Bag (ROCEPHIN) 2 g INTRAVENOUS Pre-Op Once Kyler Treviño MD metroNIDAZOLE iv piggyback 500 mg in NaCl (iso-osmotic) 100 mL (FLAGYL) 500 mg INTRAVENOUS Pre-Op Once Kyler Treviño MD heparin 5,000 Units injection 5,000 Units SUBCUTANEOUS ONCE Kyler Treviño MD lactated ringers iv infusion 30 mL/hr INTRAVENOUS CONTINUOUS Jayshree Stevens MD CURRENT ALLERGIES ALLERGIES No Known Allergies PHYSICAL EXAMINATION BP 140/88 Pulse 70 Temp (Src) 97.5 (Temporal) Resp 16 SpO2 94% O2 Therapy: Room Air General Appearance: Well appearing, alert, in no acute distress, well-hydrated, well nourished. Cardiac: regular rate Resp: unlabored respirations Abd: right abdominal wall abscess Assessment ASSESSMENT 74 y/o male right abdominal wall abscess, possible fistula from anastomosis RECOMMENDATION Incision and drainage of abdominal wall abscess. Consent obtained Deborah Norman MD DATE: 01/04/25 TIME: 12:41 PM [facility] MR Pelvis WO contraston - IMPRESSION: DENSE SCAR INVOLVING THE LOW RECTAL WALL / ANAL CANAL, UNCHANGED FROM PRIORS. NO RESIDUAL VIABLE TUMOR. NO LYMPHADENOPATHY. Since multiple priors most recently 06/04/2024, post treatment primary tumor assessment: Complete/near complete response. -Free text summary of relevant findings/interval change. mrTRG: Grade 2 - Good response Suspicious Mesorectal lymph nodes: No. Suspicious Extramesorectal lymph nodes: No. INFLAMMATORY CHANGES WITHIN THE RIGHT LOWER QUADRANT ABDOMINAL WALL WITH A LINEAR TRACT EXTENDING TO THE ANTERIOR ABDOMINAL WALL WHICH COULD REFLECT A SINUS TRACT. Services Manager: SHARON Transcribe Date/Time: Jan 04 2025 8:28A Dictated by : LUIS TOSCANO MD This examination was interpreted and the report reviewed and electronically signed by: LUIS TOSCANO MD on Jan 04 2025 8:46AM [facility] * * *Final Report* * * DATE OF EXAM: Jan 04 2025 8:23AM [facility] 0754 - MRI RECTUM WO/W IVCON / PROCEDURE REASON: Malignant neoplasm of rectum (HCC) * * * * Physician Interpretation * * * * MRI OF THE PELVIS WITHOUT AND WITH CONTRAST: RECTAL CANCER RESTAGING CLINICAL HISTORY: Rectal Cancer RESTAGING Pretreatment Tumor Staging: T3 N0 Rectal tumor histology: Adenocarcinoma Prior chemotherapy or radiation: Yes Other: N/A COMPARISON: MRI 06/04/2024 12/03/2023 04/18/2023 and 09/11/2022; CT abdomen pelvis 12/24/2024 TECHNIQUE: Magnet: 1.5T Multiplanar MRI with multiple sequences before and after contrast. Contrast: IV: 10ml of Elucirem RESULT: TREATED PRIMARY TUMOR CHARACTERISTICS (Compare to pre-treatment): DWI (with associated low ADC) ? restricted diffusion and low ADC in tumor or tumor bed: Absent. MRI-T2W: Entirely dark T2 signal/scar. T2 bright mucin (cannot distinguish between cellular and acellular mucin): Absent. Description: T2 hypointense fibrosis along the low rectal wall extending to the anal canal from the 11 to 5:00 position (6:36), similar to prior. Distance of the inferior margin of treated tumor to the anal verge: 0 cm (3:21) Distance of the inferior margin to the top of sphincter complex/anorectal junction: 0 cm (3:21) Relationship to anterior peritoneal reflection: Below Craniocaudal length: 2.6 cm (8:21) previously 3.6 cm Pre-treatment craniocaudal length: 5.8 cm Tumor location: Low rectum (0-5 cm) Maximal wall thickness: 0.5 cm (6:36), unchanged since prior Pre-treatment wall thickness: 1.5 cm Invasion of [...] lymph nodes: None. OTHER STRUCTURES/ ORGANS INVOLVED: None OTHER FINDINGS: Inflammatory changes within the right lower quadrant abdominal wall with a linear tract extending to the anterior abdominal wall which could reflect a sinus tract. [facility] Provider, [facility] - 01/04/2025 * * *Final Report* * * DATE OF EXAM: Jan 04 2025 8:23AM [facility] 0754 - MRI RECTUM WO/W IVCON / PROCEDURE REASON: Malignant neoplasm of rectum (HCC) * * * * Physician Interpretation * * * * MRI OF THE PELVIS WITHOUT AND WITH CONTRAST: RECTAL CANCER RESTAGING CLINICAL HISTORY: Rectal Cancer RESTAGING Pretreatment Tumor Staging: T3 N0 Rectal tumor histology: Adenocarcinoma Prior chemotherapy or radiation: Yes Other: N/A COMPARISON: MRI 06/04/2024 12/03/2023 04/18/2023 and 09/11/2022; CT abdomen pelvis 12/24/2024 TECHNIQUE: Magnet: 1.5T Multiplanar MRI with multiple sequences before and after contrast. Contrast: IV: 10ml of Elucirem RESULT: TREATED PRIMARY TUMOR CHARACTERISTICS (Compare to pre-treatment): DWI (with associated low ADC) ? restricted diffusion and low ADC in tumor or tumor bed: Absent. MRI-T2W: Entirely dark T2 signal/scar. T2 bright mucin (cannot distinguish between cellular and acellular mucin): Absent. Description: T2 hypointense fibrosis along the low rectal wall extending to the anal canal from the 11 to 5:00 position (6:36), similar to prior. Distance of the inferior margin of treated tumor to the anal verge: 0 cm (3:21) Distance of the inferior margin to the top of sphincter complex/anorectal junction: 0 cm (3:21) Relationship to anterior peritoneal reflection: Below Craniocaudal length: 2.6 cm (8:21) previously 3.6 cm Pre-treatment craniocaudal length: 5.8 cm Tumor location: Low rectum (0-5 cm) Maximal wall thickness: 0.5 cm (6:36), unchanged since prior Pre-treatment wall thickness: 1.5 cm Invasion of [...] lymph nodes: None. OTHER STRUCTURES/ ORGANS INVOLVED: None OTHER FINDINGS: Inflammatory changes within the right lower quadrant abdominal wall with a linear tract extending to the anterior abdominal wall which could reflect a sinus tract. IMPRESSION IMPRESSION: DENSE SCAR INVOLVING THE LOW RECTAL WALL / ANAL CANAL, UNCHANGED FROM PRIORS. NO RESIDUAL VIABLE TUMOR. NO LYMPHADENOPATHY. Since multiple priors most recently 06/04/2024, post treatment primary tumor assessment: Complete/near complete response. -Free text summary of relevant findings/interval change. mrTRG: Grade 2 - Good response Suspicious Mesorectal lymph nodes: No. Suspicious Extramesorectal lymph nodes: No. INFLAMMATORY CHANGES WITHIN THE RIGHT LOWER QUADRANT ABDOMINAL WALL WITH A LINEAR TRACT EXTENDING TO THE ANTERIOR ABDOMINAL WALL WHICH COULD REFLECT A SINUS TRACT. Services Manager: SHARON Transcribe Date/Time: Jan 04 2025 8:28A Dictated by : LUIS TOSCANO MD This examination was interpreted and the report reviewed and electronically signed by: LUIS TOSCANO MD on Jan 04 2025 8:46AM EST [facility] Radiology Study observation (narrative) [facility] MR Pelvis WO contrastOrdered By: [facility] Provider on 01-04-2025 [facility] MRI RECTUM WO/W IVCONon 12-19 MRI RECTUM WO/W IVCON * * *Final Report* * * DATE OF EXAM: Jan 04 2025 8:23AM [facility] 0754 - MRI RECTUM WO/W IVCON / PROCEDURE REASON: Malignant neoplasm of rectum (HCC) * * * * Physician Interpretation * * * * MRI OF THE PELVIS WITHOUT AND WITH CONTRAST: RECTAL CANCER RESTAGING CLINICAL HISTORY: Rectal Cancer RESTAGING Pretreatment Tumor Staging: T3 N0 Rectal tumor histology: Adenocarcinoma Prior chemotherapy or radiation: Yes Other: N/A COMPARISON: MRI 06/04/2024 12/03/2023 04/18/2023 and 09/11/2022; CT abdomen pelvis 12/24/2024 TECHNIQUE: Magnet: 1.5T Multiplanar MRI with multiple sequences before and after contrast. Contrast: IV: 10ml of Elucirem RESULT: TREATED PRIMARY TUMOR CHARACTERISTICS (Compare to pre-treatment): DWI (with associated low ADC) ? restricted diffusion and low ADC in tumor or tumor bed: Absent. MRI-T2W: Entirely dark T2 signal/scar. T2 bright mucin (cannot distinguish between cellular and acellular mucin): Absent. Description: T2 hypointense fibrosis along the low rectal wall extending to the anal canal from the 11 to 5:00 position (6:36), similar to prior. Distance of the inferior margin of treated tumor to the anal verge: 0 cm (3:21) Distance of the inferior margin to the top of sphincter complex/anorectal junction: 0 cm (3:21) Relationship to anterior peritoneal reflection: Below Craniocaudal length: 2.6 cm (8:21) previously 3.6 cm Pre-treatment craniocaudal length: 5.8 cm Tumor location: Low rectum (0-5 cm) Maximal wall thickness: 0.5 cm (6:36), unchanged since prior Pre-treatment wall thickness: 1.5 cm Invasion of [...] lymph nodes: None. OTHER STRUCTURES/ ORGANS INVOLVED: None OTHER FINDINGS: Inflammatory changes within the right lower quadrant abdominal wall with a linear tract extending to the anterior abdominal wall which could reflect a sinus tract. IMPRESSION: DENSE SCAR INVOLVING THE LOW RECTAL WALL / ANAL CANAL, UNCHANGED FROM PRIORS. NO RESIDUAL VIABLE TUMOR. NO LYMPHADENOPATHY. Since multiple priors most recently 06/04/2024, post treatment primary tumor assessment: Complete/near complete response. -Free text summary of relevant findings/interval change. mrTRG: Grade 2 - Good response Suspicious Mesorectal lymph nodes: No. Suspicious Extramesorectal lymph nodes: No. INFLAMMATORY CHANGES WITHIN THE RIGHT LOWER QUADRANT ABDOMINAL WALL WITH A LINEAR TRACT EXTENDING TO THE ANTERIOR ABDOMINAL WALL WHICH COULD REFLECT A SINUS TRACT. Services Manager: SHARON Transcribe Date/Time: Jan 04 2025 8:28A Dictated by : LUIS TOSCANO MD This examination was interpreted and the report reviewed and electronically signed by: LUIS TOSCANO MD on Jan 04 2025 8:46AM EST [id number] [facility] [facility] OPERATIVE NOon 01-04-2025 OPERATIVE NO HNO ID: [id number] Author: DEBORAH NORMAN MD Service: Colorectal Author Type: Physician Type: Operative Report Filed: 01/05/2025 09:48 Note Text: COLON AND RECTAL SURGERY OPERATIVE REPORT PATIENT NAME: Mervat Grayson ADMISSION DATE: 01/04/2025 LOG ID: [id number] SURGERY/PROCEDURE DATE: 01/04/2025 INCISION/PROCEDURE START TIME: 3:19 PM INCISION CLOSE/PROCEDURE END TIME: 3:33 PM AGE: [age] year old SEX: male SURGEON(S)/PROCEDURALIS T(S) AND RAIL OPERATIONS CONTROLLER(S): Surgeons and Role: * Deborah Norman MD - Primary * Joanne Jung MD - Resident - Assisting No Additional Staff ANESTHESIA: General PREOPERATIVE DIAGNOSIS (ES): Abdominal wall abscess, anastomotic fistula POSTOPERATIVE DIAGNOSIS (ES): Abdominal wall abscess, anastomotic fistula NAME OF OPERATION: Incision and drainage of abdominal wall abscess INDICATIONS FOR PROCEDURE: Abdominal wall abscess OPERATIVE FINDINGS: Right lower quadrant abdominal wall abscess with fistula tract at former drain site DESCRIPTION OF PROCEDURE: The patient was brought to the operating room, placed under general anesthesia in the supine position. A surgical time-out was performed. The right lower quadrant of the abdomen was prepped and draped in normal sterile fashion and anesthetized with local anesthetic. Incision was made over the abdominal wall abscess and pus was evacuated. The fistula tract was identified and resected down to the level of the fascia. Hemostasis was obtained and the wound was packed and dressed. ESTIMATED BLOOD LOSS: 5 cc SPECIMENS: Abdominal wall abscess cavity/fistula DRAINS: None COMPLICATIONS: None INTRAOPERATIVE FLUIDS: See anesthesia record. SPONGE/INSTRUMENT/NEEDL E COUNTS: Correct x2. PRESENCE STATEMENT: I was present for the entire procedure as I have dictated above. Deborah Norman M.D. Department of Surgery Division of Colon and Rectal Surgery [facility] Pathology biopsy report Jose Manuel (Tiss)on 01-04-2025 AP DISCLAIMER [facility] Comment on above: Order Comment: Speci men Type: TISSUE SPECIMENOrdering Facility: [facility] Address: [address] [place] [address] Result Comment: Keshav medrano Developed Test (LDT) Disclaimer: Performance characteristics of immunohistochemical, immunofluorescent, and chromogenic in-situ hybridization tests have been determined by the performing laboratory within [facility]'s [facility] Pathology and Laboratory Medicine Department ([facility], [facility], [facility], [facility], [facility], [facility], or [facility]) in a manner consistent with CLIA requirements. One or more of these tests may not have been cleared or approved by the FDA. RT[facility]PLM is regulated under CLIA as qualified to perform high-complexity testing. These tests are used for clinical purposes. These should not be regarded as investigational or for research. Positive and negative controls stain appropriately. Performed By: #### 6 6121-5 ####[facility] LABCLIA [id number] [address] LABORATORYIA [id number] [address] CASE REPORT Normal [facility] Comment on above: Order Comment: Speci men Type: TISSUE SPECIMENOrdering Facility: [facility] Address: [address] [place] [address] Result Comment: Surg ical Pathology Report Case: [id number] Authorizing Provider: Deborah Norman MD Collected: 01/04/2025 03:20 PM Ordering Location: [facility] Received: 01/04/2025 05:20 PM Operating Room Pathologist: Viola Barbosa MD Specimen: Abscess (Specify site in comment), abdominal wall abscess cavity Performed By: #### 6 6121-5 ####[facility] LABCLIA [id number] [address] LABORATORYIA [id number] [address] OF [facility] CLINICAL HISTORY Normal [facility] Comment on above: Order Comment: Speci men Type: TISSUE SPECIMENOrdering Facility: [facility] Address: [address] [place] [address] Result Comment: Pre- op diagnosis: Abdominal wall abscess [L02.211] Performed By: #### 6 6121-5 ####[facility] LABCLIA [id number] [address] [address] [facility] LABORATORYCLIA [id number] [place] [address] [facility] FINAL DIAGNOSIS [facility] Comment on above: Order Comment: Speci men Type: TISSUE SPECIMENOrdering Facility: [facility] Address: [address] [place] [address] Result Comment: A. S oft tissue, abdominal wall, excision: - Abscess. at 1123 EDT Performed By: #### 6 6121-5 ####[facility] LABCLIA [id number] [address] [address] [facility] LABORATORYCLIA [id number] [address] OF [facility] FINAL PERFORMING LAB Normal [facility] Comment on above: Order Comment: Speci men Type: TISSUE SPECIMENOrdering Facility: [facility] Address: [address] [place] [address] Result Comment: Diag nostic interpretation performed at: [facility], [address] [place] [address], [address] [address] CLIA# [id number] Carbide Grinder: Pineda Conti MD Performed By: #### 6 6121-5 ####[facility] LABCLIA [id number] [address] [address] [facility] LABORATORYCLIA [id number] [place] [address] [facility] GROSS DESCRIPTION Normal [facility] Comment on above: Order Comment: Speci men Type: TISSUE SPECIMENOrdering Facility: [facility] Address: [address] [place], [place] [id number] Result Comment: A. A bscess (Specify site in comment) Received in formalin designated abdominal wall abscess cavity are multiple segments of santos-pink soft tissue and fibrofatty tissue which aggregate to 5.8 x 4 x 1 cm. Focal areas of fibrosis and necrosis are present. Education Officer sections are submitted in 1 cassette. BF January 05, 2025 9:26 AM Gross examination performed at [facility], [address] [place] [address] Performed By: #### 6 6121-5 ####[facility] LABCLIA [id number] [facility] [id number] [place] [address] LABORATORYCLIA [id number] [address] CNPNon 01-01-2025 CNPN Telephone (RGFV) MERVAT GRAYSON ([id number]) 1950 M Date Time Provider Department 01/01/25 MONTY SPIVEY [facility] During your visit today, we recorded the following information about you: Monty Spivey 01/01/2025 10:08 AM Signed Appointment reminder call Allergies As of Date: 01/01/2025 (No Known Allergies) Date Reviewed: 12/07/2024 Reviewed by: Renata Amin MA - Fully Assessed Reason for Visit: Appointment [186] Cmt: Appointment reminder call - spoke with patient - gave directions to the office Prescriptions as of 01/01/2025 - oxyCODONE-acetaminophen (PERCOCET) 5-325 mg tablet Take 1 tablet by mouth every 6 hours as needed for up to 28 days. - zolpidem (AMBIEN) 5 mg tablet Take 1 tablet by mouth at bedtime as needed for up to 30 days. - XARELTO 20 mg tablet TAKE ONE TABLET BY MOUTH DAILY WITH DINNER - calcium carbonate (CALCIUM 600 ORAL) Take [...] twice daily. Problem List As Of Date 01/01/2025 Noted Resolved Pulmonary embolus with infarction (HCC) [I26.99]08/04/2018 Rectal cancer (HCC) [C20] 12/17/2022 Non-ischemic cardiomyopathy (HCC) [I42.8] 11/05/2023 RA (rheumatoid arthritis) (HCC) [M06.9] 11/05/2023 Pneumoperitoneum [K66.8] 07/23/2024 Obesity, Class I, BMI 30-34.9 [E66.811] 07/23/2024 Perforation bowel (HCC) [K63.1] 07/29/2024 S/P right colectomy [Z90.49] 07/29/2024 Intraabdominal fluid collection [R18.8] 08/14/2024 Encounter Status:Closed by MONTY SPIVEY on 01/01/25 [facility] 12-31-2024 [facility] 12-29-2024 [facility] CNOVon 12-28-2024 CNOV Normal [facility] 12-25-2024 [facility] CBC W Auto Differential pane l (Bld)on 12-24-2024 Basophils (Bld) [#/Vol] 0.06 10*3/uL [facility] Basophils/100 WBC (Bld) 0.7 % [facility] Differential cell count method Nom (Bld) Auto [facility] Eosinophils (Bld) [#/Vol] 0.25 10*3/uL [facility] Eosinophils/100 WBC (Bld) 2.8 % [facility] Erythrocyte distribution width (RBC) [Ratio] 16.6 % High 11.5 - 15.0 % [facility] Hematocrit (Bld) [Volume fraction] 36.6 % Low 39.0 - 51.0 % [facility] Hemoglobin (Bld) [Mass/Vol] 11.8 g/dL Low 13.0 - 17.0 g/dL [facility] Immature granulocytes (Bld) [#/Vol] 0.03 10*3/uL [facility] Immature granulocytes/100 WBC (Bld) 0.3 % [facility] Interpretation and review of laboratory results Abnormal [facility] Lymphocytes (Bld) [#/Vol] 0.85 10*3/uL Low [facility] Lymphocytes/100 WBC (Bld) 9.6 % [facility] MCH (RBC) [Entitic mass] 28.9 pg 26.0 - 34.0 pg [facility] MCHC (RBC) [Mass/Vol] 32.2 g/dL 30.5 - 36.0 g/dL [facility] MCV (RBC) [Entitic vol] 89.5 fL 80.0 - 100.0 fL [facility] Monocytes (Bld) [#/Vol] 0.66 10*3/uL [facility] Monocytes/100 WBC (Bld) 7.5 % [facility] Neutrophils (Bld) [#/Vol] 7 10*3/uL [facility] Neutrophils/100 WBC (Bld) 79.1 % [facility] Nucleated RBC (Bld) [#/Vol] [facility] Nucleated RBC/100 WBC (Bld) [Ratio] 0 % /100 WBC [facility] Platelet mean volume (Bld) [Entitic vol] 9.7 fL 9.0 - 12.7 fL [facility] Platelets (Bld) [#/Vol] 272 10*3/uL [facility] RBC (Bld) [#/Vol] 4.09 10*6/uL Low 4.20 - 6.0 0 m/uL [facility] WBC (Bld) [#/Vol] 8.85 10*3/uL [facility] Basophils (Bld) [#/Vol] 0.06 10*3/uL Normal <0.11 [facility] Comment on above: Order Comment: Speci men Type: BLOOD SPECIMENOrdering Facility: [facility] Address: [address] [place] [address] Performed By: #### 5 7021-8 ####[facility] LABCLIA [id number] [place] [address] Basophils/100 WBC (Bld) 0.7 % Normal [facility] Comment on above: Order Comment: Speci men Type: BLOOD SPECIMENOrdering Facility: [facility] Address: [address] [place] [address] Performed By: #### 5 7021-8 ####[facility] LABCLIA [id number] [place] [address] Differential cell count method Nom (Bld) Auto Normal [facility] Comment on above: Order Comment: Speci men Type: BLOOD SPECIMENOrdering Facility: [facility] Address: [address] [place] [address] Performed By: #### 5 7021-8 ####[facility] LABCLIA [id number] [place] [address] Eosinophils (Bld) [#/Vol] 0.25 10*3/uL Normal <0.46 [facility] Comment on above: Order Comment: Speci men Type: BLOOD SPECIMENOrdering Facility: [facility] Address: [address] [place] [address] Performed By: #### 5 7021-8 ####[facility] LABCLIA [id number] [place] [address] Eosinophils/100 WBC (Bld) 2.8 % Normal [facility] Comment on above: Order Comment: Speci men Type: BLOOD SPECIMENOrdering Facility: [facility] Address: [address] [place] [address] Performed By: #### 5 7021-8 ####[facility] LABCLIA [id number] [place] [address] Erythrocyte distribution width (RBC) [Ratio] 16.6 % High 11.5-15.0 [facility] Comment on above: Order Comment: Speci men Type: BLOOD SPECIMENOrdering Facility: [facility] Address: [address] [place] [address] Performed By: #### 5 7021-8 ####[facility] LABCLIA [id number] [place] [address] Hematocrit (Bld) [Volume fraction] 36.6 % Low 39.0-51.0 [facility] Comment on above: Order Comment: Speci men Type: BLOOD SPECIMENOrdering Facility: [facility] Address: [address] [place] [address] Performed By: #### 5 7021-8 ####[facility] LABCLIA [id number] [place] [address] Hemoglobin (Bld) [Mass/Vol] 11.8 g/dL Low 13.0-17.0 [facility] Comment on above: Order Comment: Speci men Type: BLOOD SPECIMENOrdering Facility: [facility] Address: [address] [place] [address] Performed By: #### 5 7021-8 ####[facility] LABCLIA [id number] [place] [address] Immature granulocytes (Bld) [#/Vol] 0.03 10*3/uL Normal <0.10 [facility] Comment on above: Order Comment: Speci men Type: BLOOD SPECIMENOrdering Facility: [facility] Address: [address] [place] [address] Performed By: #### 5 7021-8 ####[facility] LABCLIA [id number] [place] [address] Immature granulocytes/100 WBC (Bld) 0.3 % Normal [facility] Comment on above: Order Comment: Speci men Type: BLOOD SPECIMENOrdering Facility: [facility] Address: [address] [place] [address] Performed By: #### 5 7021-8 ####[facility] LABCLIA [id number] [place] [address] Lymphocytes (Bld) [#/Vol] 0.85 10*3/uL Low 1.00-4.00 [facility] Comment on above: Order Comment: Speci men Type: BLOOD SPECIMENOrdering Facility: [facility] Address: [address] [place] [address] Performed By: #### 5 7021-8 ####[facility] LABCLIA [id number] [place] [address] Lymphocytes/100 WBC (Bld) 9.6 % Normal [facility] Comment on above: Order Comment: Speci men Type: BLOOD SPECIMENOrdering Facility: [facility] Address: [address] [place] [address] Performed By: #### 5 7021-8 ####[facility] LABCLIA [id number] [place] [address] MCH (RBC) [Entitic mass] 28.9 pg Normal 26.0-34.0 [facility] Comment on above: Order Comment: Speci men Type: BLOOD SPECIMENOrdering Facility: [facility] Address: [address] [place] [address] Performed By: #### 5 7021-8 ####[facility] LABCLIA [id number] [place] [address] MCHC (RBC) [Mass/Vol] 32.2 g/dL Normal 30.5-36.0 [place] Comment on above: Order Comment: Speci men Type: BLOOD SPECIMENOrdering Facility: [facility] Address: [address] [place] [address] Performed By: #### 5 7021-8 ####[facility] LABCLIA [id number] [place] [address] MCV (RBC) [Entitic vol] 89.5 fL Normal 80.0-100.0 [facility] Comment on above: Order Comment: Speci men Type: BLOOD SPECIMENOrdering Facility: [facility] Address: [address] [place] [address] Performed By: #### 5 7021-8 ####[facility] LABCLIA [id number] [place] [address] Monocytes (Bld) [#/Vol] 0.66 10*3/uL Normal <0.87 [facility] Comment on above: Order Comment: Speci men Type: BLOOD SPECIMENOrdering Facility: [facility] Address: [address] [place] [address] Performed By: #### 5 7021-8 ####[facility] LABCLIA [id number] [place] [address] Monocytes/100 WBC (Bld) 7.5 % Normal [facility] Comment on above: Order Comment: Speci men Type: BLOOD SPECIMENOrdering Facility: [facility] Address: [address] [place] [address] Performed By: #### 5 7021-8 ####[facility] LABCLIA [id number] [place] [address] Neutrophils (Bld) [#/Vol] 7.00 10*3/uL Normal 1.45-7.50 [facility] Comment on above: Order Comment: Speci men Type: BLOOD SPECIMENOrdering Facility: [facility] Address: [address] [place] [address] Performed By: #### 5 7021-8 ####[facility] LABCLIA [id number] [place] [address] Neutrophils/100 WBC (Bld) 79.1 % Normal [facility] Comment on above: Order Comment: Speci men Type: BLOOD SPECIMENOrdering Facility: [facility] Address: [address] [place] [address] Performed By: #### 5 7021-8 ####[facility] LABCLIA [id number] [place] [address] Nucleated RBC (Bld) [#/Vol] 10*3/uL Normal <0.01 [facility] Comment on above: Order Comment: Speci men Type: BLOOD SPECIMENOrdering Facility: [facility] Address: [address] [place] [address] Performed By: #### 5 7021-8 ####[facility] LABCLIA [id number] [place] [address] Nucleated RBC/100 WBC (Bld) [Ratio] 0.0 /100 WBC Normal [facility] Comment on above: Order Comment: Speci men Type: BLOOD SPECIMENOrdering Facility: [facility] Address: [address] [place] [address] Performed By: #### 5 7021-8 ####[facility] LABCLIA [id number] [place] [address] Platelet mean volume (Bld) [Entitic vol] 9.7 fL Normal 9.0-12.7 [facility] Comment on above: Order Comment: Speci men Type: BLOOD SPECIMENOrdering Facility: [facility] Address: [address] [place] [address] Performed By: #### 5 7021-8 ####[facility] LABCLIA [id number] [place] [address] Platelets (Bld) [#/Vol] 272 10*3/uL Normal 150-400 [facility] Comment on above: Order Comment: Speci men Type: BLOOD SPECIMENOrdering Facility: [facility] Address: [address] [place] [address] Performed By: #### 5 7021-8 ####[facility] LABCLIA [id number] [place] [address] RBC (Bld) [#/Vol] 4.09 10*6/uL Low 4.20-6.00 [facility] Comment on above: Order Comment: Speci men Type: BLOOD SPECIMENOrdering Facility: [facility] Address: [address] [place] [address] Performed By: #### 5 7021-8 ####[facility] LABCLIA [id number] [place] [address] WBC (Bld) [#/Vol] 8.85 10*3/uL Normal 3.70-11.00 [facility] Comment on above: Order Comment: Speci men Type: BLOOD SPECIMENOrdering Facility: [facility] Address: [address] [place] [address] Performed By: #### 5 7021-8 ####[facility] LABCLIA [id number] [place] [address] CEA SerPl-ncon 12-24-2024 Carcinoembryonic Ag [Mass/Vol] 1.4 ng/mL Normal <=2.9 [facility] Comment on above: Order Comment: Speci men Type: BLOOD SPECIMENOrdering Facility: [facility] Address: [address] [place] [address] Result Comment: Carc inoembryonic antigen test is [...] used interchangeably. Performed By: #### 2 039-6 ####[facility] LABCLIA [id number] [place] [address] [place] CNPNon 12-24-2024 CNPN Normal [facility] CT ABD/PEL W IVCONon 025 CT ABD/PEL W IVCON Normal [facility] CT Abdomen and Pelvis W cont rast Ivelisse 12-24-2024 IMPRESSION: 1. Persistent inflammatory changes along the surgical staple line in the right colon. New enhancing tract extending from this area of inflammatory change through the abdominal wall into the subcutaneous soft tissues suspicious for a fistulous abscess. Trace fluid is noted within the fistulous abscess and it is uncertain if it is drainable. Superimposed neoplasm cannot be excluded. 2. Cholelithiasis. 3. Trace abdominal ascites, decreased. 4. Nonobstructing bilateral renal stones. Transcribe Date/Time: Dec 24 2024 5:15P Dictated by: JULI MITCHELL MD This examination was interpreted and the report reviewed and electronically signed by: JULI MITCHELL MD on Dec 24 2024 5:50PM EST Thank you for allowing us to participate in the care of your patient. Should there be any questions regarding this interpretation, please call [phone]. If you are unable to reach us at the number above, please feel free to contact [facility] at [phone]. DIVISION OF RADIOLOGY * * *Final Report* * * DATE OF EXAM: Dec 24 2024 11:12AM [facility] 0530 - CT ABD/PEL W IVCON / PROCEDURE REASON: Malignant neoplasm of rectum (HCC) * * * * Physician Interpretation * * * * RESULT: EXAMINATION: CT ABDOMEN WITH IV CONTRAST CLINICAL HISTORY: Rectal cancer TECHNIQUE: CT of the abdomen was performed using standard technique, scanning from just above the dome of the diaphragm to the iliac crest. MQ: CTAbdW_4 Contrast: IV: 100 ml of Omnipaque 350 Oral: 500 ml of Omni 240 10-25ml diluted with water CT Radiation dose: Integrated Dose-length product (DLP) for this visit = 1212 mGy*cm. CT Dose Reduction Employed: Automated exposure control (AEC) COMPARISON: 11/10/24 RESULT: Liver: No mass. Biliary: No bile duct dilation. Cholelithiasis. Spleen: No mass. No splenomegaly. Pancreas: No mass or duct dilation. Adrenals:No mass. Kidneys: Nonobstructing bilateral renal stones measuring up 4 mm. Bilateral parapelvic renal cysts. GI tract: No dilation or wall thickening. Sigmoid colon and left colon diverticulosis is noted without evidence of diverticulitis. Postoperative changes of the right colon. Persistent inflammatory changes are noted along the surgical staple line in the right colon (3:119). New enhancing tract is noted extending from this area of inflammatory change through the abdominal wall into the subcutaneous soft tissues (3:110-117) suspicious for a fistulous abscess. Trace fluid is noted within the fistulous abscess and it is uncertain if it is drainable. Superimposed neoplasm cannot be excluded. Lymph nodes: No abdominal lymphadenopathy. Mesentery/Peritoneum: Trace perihepatic ascites, slightly decreased. Retroperitoneum: No mass. Vasculature: - Abdominal aorta: Atherosclerotic calcifications without aneurysm. - Celiac and SMA: Patent without stenosis. - Portal venous system (SMV, splenic vein, portal vein and branches): Patent. - Hepatic veins: Patent. Bones/Soft Tissues: No suspicious lytic or blastic osseous lesions. Lower thorax: A chest CT performed will be reported separately. Localizer images: No additional findings. DIVISION OF RADIOLOGY Provider, [facility] 12/24/2024 * * *Final Report* * * DATE OF EXAM: Dec 24 2024 11:12AM [facility] 0530 - CT ABD/PEL W IVCON / PROCEDURE REASON: Malignant neoplasm of rectum (HCC) * * * * Physician Interpretation * * * * RESULT: EXAMINATION: CT ABDOMEN WITH IV CONTRAST CLINICAL HISTORY: Rectal cancer TECHNIQUE: CT of the abdomen was performed using standard technique, scanning from just above the dome of the diaphragm to the iliac crest. MQ: CTAbdW_4 Contrast: IV: 100 ml of Omnipaque 350 Oral: 500 ml of Omni 240 10-25ml diluted with water CT Radiation dose: Integrated Dose-length product (DLP) for this visit = 1212 mGy*cm. CT Dose Reduction Employed: Automated exposure control (AEC) COMPARISON: 11/10/24 RESULT: Liver: No mass. Biliary: No bile duct dilation. Cholelithiasis. Spleen: No mass. No splenomegaly. Pancreas: No mass or duct dilation. Adrenals:No mass. Kidneys: Nonobstructing bilateral renal stones measuring up 4 mm. Bilateral parapelvic renal cysts. GI tract: No dilation or wall thickening. Sigmoid colon and left colon diverticulosis is noted without evidence of diverticulitis. Postoperative changes of the right colon. Persistent inflammatory changes are noted along the surgical staple line in the right colon (3:119). New enhancing tract is noted extending from this area of inflammatory change through the abdominal wall into the subcutaneous soft tissues (3:110-117) suspicious for a fistulous abscess. Trace fluid is noted within the fistulous abscess and it is uncertain if it is drainable. Superimposed neoplasm cannot be excluded. Lymph nodes: No abdominal lymphadenopathy. Mesentery/Peritoneum: Trace perihepatic ascites, slightly decreased. Retroperitoneum: No mass. Vasculature: - Abdominal aorta: Atherosclerotic calcifications without aneurysm. - Celiac and SMA: Patent without stenosis. - Portal venous system (SMV, splenic vein, portal vein and branches): Patent. - Hepatic veins: Patent. Bones/Soft Tissues: No suspicious lytic or blastic osseous lesions. Lower thorax: A chest CT performed will be reported separately. Localizer images: No additional findings. IMPRESSION IMPRESSION: 1. Persistent inflammatory changes along the surgical staple line in the right colon. New enhancing tract extending from this area of inflammatory change through the abdominal wall into the subcutaneous soft tissues suspicious for a fistulous abscess. Trace fluid is noted within the fistulous abscess and it is uncertain if it is drainable. Superimposed neoplasm cannot be excluded. 2. Cholelithiasis. 3. Trace abdominal ascites, decreased. 4. Nonobstructing bilateral renal stones. Transcribe Date/Time: Dec 24 2024 5:15P Dictated by: JULI MITCHELL MD This examination was interpreted and the report reviewed and electronically signed by: JULI MITCHELL MD on Dec 24 2024 5:50PM EST Thank you for allowing us to participate in the care of your patient. Should there be any questions regarding this interpretation, please call [phone]. If you are unable to reach us at the number above, please feel free to contact [facility] eRadiology at [phone]. [facility] CT CHEST W IVCONon CT CHEST W IVCON Normal Abigail ortiz [facility] CT Chest W contrast Ivelisse IMPRESSION: Indeterminate subcentimeter nodular opacities measuring up to 9 mm, some are stable and some are new since 12/20/23. Consider interval follow-up. Transcribe Date/Time: Dec 24 2024 4:18P Dictated by: JULI MITCHELL MD This examination was interpreted and the report reviewed and electronically signed by: JULI MITCHELL MD on Dec 24 2024 5:50PM EST Thank you for allowing us to participate in the care of your patient. Should there be any questions regarding this interpretation, please call [phone]. If you are unable to reach us at the number above, please feel free to contact [facility]Radiology at [phone]. DIVISION OF RADIOLOGY * * *Final Report* * * DATE OF EXAM: Dec 24 2024 11:12AM [facility] 0539 - CT CHEST W IVCON / PROCEDURE REASON: Malignant neoplasm of rectum (HCC) * * * * Physician Interpretation * * * * RESULT: EXAMINATION: CHEST CT WITH CONTRAST CLINICAL HISTORY: Rectal cancer Technique: Spiral CT acquisition of the chest from the thoracic inlet to the upper abdomen following IV contrast. MQ: CTCW_6 Contrast: 100 mL Omnipaque [address] Radiation dose: Integrated Dose-length product (DLP) for this visit = 1212 mGy*cm CT Dose Reduction Employed: Automated exposure control (AEC) Comparison: 12/20/23 RESULT: Limitations: None. Lines, tubes, and devices: None. Lung parenchyma and airways: Subcentimeter nodular opacities measuring up to 9 mm. For example: Right upper lobe (7:64, 78, 80, 82, 114) Right middle lobe (7:137, 146) Left lower lobe (7:154) Left upper lobe (7:90, 95) New subcentimeter nodular opacities measuring less than 5 mm in the right lower lobe (7:108, 120, 117), left lower lobe (7:121). Elevation of left hemidiaphragm with adjacent compression atelectasis, stable. The central airways are patent. Pleural space: No pleural effusion. No pleural thickening. Lower neck, lymph nodes, and mediastinum: The imaged thyroid gland is normal. Borderline enlarged noncalcified mediastinal lymph nodes are stable. Calcified subcarinal lymph node is identified. Heart, pericardium, and thoracic vessels: The thoracic aorta and main pulmonary artery are normal in caliber. The cardiac chambers are normal in size. No coronary artery atherosclerotic calcifications are noted, although the study is not optimized for coronary assessment. No pericardial effusion or thickening. Bones and soft tissues: Postoperative changes of the cervical spine. No new osseous abnormalities. Upper abdomen: Please refer to the abdomen CT scan report for the abdomen findings. Localizer images: No additional findings. DIVISION OF RADIOLOGY Provider, [facility] - 12/24/2024 * * *Final Report* * * DATE OF EXAM: Dec 24 2024 11:12AM [facility] 0539 - CT CHEST W IVCON / PROCEDURE REASON: Malignant neoplasm of rectum (HCC) * * * * Physician Interpretation * * * * RESULT: EXAMINATION: CHEST CT WITH CONTRAST CLINICAL HISTORY: Rectal cancer Technique: Spiral CT acquisition of the chest from the thoracic inlet to the upper abdomen following IV contrast. MQ: CTCW_6 Contrast: 100 mL Omnipaque [address] Radiation dose: Integrated Dose-length product (DLP) for this visit = 1212 mGy*cm CT Dose Reduction Employed: Automated exposure control (AEC) Comparison: 12/20/23 RESULT: Limitations: None. Lines, tubes, and devices: None. Lung parenchyma and airways: Subcentimeter nodular opacities measuring up to 9 mm. For example: Right upper lobe (7:64, 78, 80, 82, 114) Right middle lobe (7:137, 146) Left lower lobe (7:154) Left upper lobe (7:90, 95) New subcentimeter nodular opacities measuring less than 5 mm in the right lower lobe (7:108, 120, 117), left lower lobe (7:121). Elevation of left hemidiaphragm with adjacent compression atelectasis, stable. The central airways are patent. Pleural space: No pleural effusion. No pleural thickening. Lower neck, lymph nodes, and mediastinum: The imaged thyroid gland is normal. Borderline enlarged noncalcified mediastinal lymph nodes are stable. Calcified subcarinal lymph node is identified. Heart, pericardium, and thoracic vessels: The thoracic aorta and main pulmonary artery are normal in caliber. The cardiac chambers are normal in size. No coronary artery atherosclerotic calcifications are noted, although the study is not optimized for coronary assessment. No pericardial effusion or thickening. Bones and soft tissues: Postoperative changes of the cervical spine. No new osseous abnormalities. Upper abdomen: Please refer to the abdomen CT scan report for the abdomen findings. Localizer images: No additional findings. IMPRESSION IMPRESSION: Indeterminate subcentimeter nodular opacities measuring up to 9 mm, some are stable and some are new since 12/20/23. Consider interval follow-up. Transcribe Date/Time: Dec 24 2024 4:18P Dictated by: JULI MITCHELL MD This examination was interpreted and the report reviewed and electronically signed by: JULI MITCHELL MD on Dec 24 2024 5:50PM EST Thank you for allowing us to participate in the care of your patient. Should there be any questions regarding this interpretation, please call [phone]. If you are unable to reach us at the number above, please feel free to [facility] [phone]. [facility] Comprehensive metabolic 2000 panelOrdered By: Toshia Stokes on 12-24-2024 Albumin [Mass/Vol] 3.8 g/dL Low 3.9 - 4.9 g/dL [facility] ALP [Catalytic activity/Vol] 105 U/L 38 - 113 U/L [facility] ALT [Catalytic activity/Vol] 6 U/L Low 10 - 54 U/L [facility] Anion gap [Moles/Vol] 10 mmol/L 8 - 15 mmol/L [facility] AST [Catalytic activity/Vol] 10 U/L Low 14 - 40 U/L [facility] Bilirubin [Mass/Vol] 0.6 mg/dL 0.2 - 1 .3 mg/dL [facility] Calcium [Mass/Vol] 9.1 mg/dL 8.5 - 10. 2 mg/dL [facility] Chloride [Moles/Vol] 107 mmol/L 98 - 10 7 mmol/L [facility] CO2 [Moles/Vol] 26 mmol/L 22 - 30 mmol/L [facility] Creatinine [Mass/Vol] 1.03 mg/dL 0.73 - 1.22 mg/dL [facility] GFR/1.73 sq M.predicted among non-blacks MDRD (S/P/Bld) [Vol rate/Area] 77 mL/min/{1.73_m2} - PINF [facility] Comment on above: Estimated Glomerular Filtration Rate (eGFR) is calculated using the 2020 CKD-EPI creatinine equation. This equation utilizes serum creatinine, sex, and age as parameters. The creatinine assay has traceable calibration to isotope dilution-mass spectrometry. Refer to KDIGO guidelines for clinical interpretation. In patients with unstable renal function, e.g. those with acute kidney injury, the eGFR may not accurately reflect actual GFR. Glucose [Mass/Vol] 87 mg/dL 74 - 99 mg/dL [facility] Comment on above: The [place] [employer] [place] [employer] (ADA) provides guidance for cutoff values for fasting glucose and random glucose. The ADA defines fasting as no caloric intake for at least 8 hours. Fasting plasma glucose results between 100 to 125 mg/dL indicate increased risk for diabetes (prediabetes). Fasting plasma glucose results greater than or equal to 126 mg/dL meet the criteria for diagnosis of diabetes. In the absence of unequivocal hyperglycemia, results should be confirmed by repeat testing. In a patient with classic symptoms of hyperglycemia or hyperglycemic crisis, random plasma glucose results greater than or equal to 200 mg/dL meet the criteria for diagnosis of diabetes. Reference: Standards of Medical Care in Diabetes 2016, [place] [employer]. Diabetes Care. 2016.39(Suppl 1). Interpretation and review of laboratory results Abnormal [facility] Potassium [Moles/Vol] 4.2 mmol/L 3.7 - 5.1 mmol/L [facility] Protein [Mass/Vol] 6.5 g/dL 6.3 - 8.0 g/dL [facility] Sodium [Moles/Vol] 143 mmol/L 136 - 144 mmol/L [facility] Urea nitrogen [Mass/Vol] 16 mg/dL 9 - 24 mg/dL [facility] Comprehensive metabolic 2000 panelon 12-24-2024 Albumin [Mass/Vol] 3.8 g/dL Low 3.9-4.9 [facility] Comment on above: Order Comment: Speci men Type: BLOOD SPECIMENOrdering Facility: [facility] Address: [address] [place] [address] Performed By: #### 2 4323-8 ####[facility] LABCLIA [id number] [place] [address] ALP [Catalytic activity/Vol] 105 U/L Normal 38-113 [facility] Comment on above: Order Comment: Speci men Type: BLOOD SPECIMENOrdering Facility: [facility] Address: [address] [place] [address] Performed By: #### 2 4323-8 ####[facility] LABCLIA [id number] [place] [address] ALT [Catalytic activity/Vol] 6 U/L Low 10-54 [facility] Comment on above: Order Comment: Speci men Type: BLOOD SPECIMENOrdering Facility: [facility] Address: [address] [place] [address] Performed By: #### 2 4323-8 ####[facility] LABCLIA [id number] [place] [address] Anion gap [Moles/Vol] 10 mmol/L Normal 8-15 [place] Comment on above: Order Comment: Speci men Type: BLOOD SPECIMENOrdering Facility: [facility] Address: [address] [place] [address] Performed By: #### 2 4323-8 ####[facility] LABCLIA [id number] [place] [address] AST [Catalytic activity/Vol] 10 U/L Low 14-40 [facility] Comment on above: Order Comment: Speci men Type: BLOOD SPECIMENOrdering Facility: [facility] Address: [address] [place] [address] Performed By: #### 2 4323-8 ####[facility] LABCLIA [id number] [place] [address] Bilirubin [Mass/Vol] 0.6 mg/dL Normal 0.2-1.3 [facility] Comment on above: Order Comment: Speci men Type: BLOOD SPECIMENOrdering Facility: [facility] Address: [address] [place] [address] Performed By: #### 2 4323-8 ####[facility] LABCLIA [id number] [place] [address] Calcium [Mass/Vol] 9.1 mg/dL Normal 8.5-10.2 [facility] Comment on above: Order Comment: Speci men Type: BLOOD SPECIMENOrdering Facility: [facility] Address: [address] [place] [address] Performed By: #### 2 4323-8 ####[facility] LABCLIA [id number] [place] [address] Chloride [Moles/Vol] 107 mmol/L Normal 98-107 [facility] Comment on above: Order Comment: Speci men Type: BLOOD SPECIMENOrdering Facility: [facility] Address: [address] [place] [address] Performed By: #### 2 4323-8 ####[facility] LABCLIA [id number] [place] [address] CO2 [Moles/Vol] 26 mmol/L Normal 22-30 [facility] Comment on above: Order Comment: Speci men Type: BLOOD SPECIMENOrdering Facility: [facility] Address: [address] [place] [address] Performed By: #### 2 4323-8 ####[facility] LABCLIA [id number] [place] [address] Creatinine [Mass/Vol] 1.03 mg/dL Normal 0.73-1.22 [place] Comment on above: Order Comment: Speci men Type: BLOOD SPECIMENOrdering Facility: [facility] Address: [address] [place] [address] Performed By: #### 2 4323-8 ####[facility] [id number] [place] [address] Creatinine and Glomerular filtration rate.predicted panel (S/P/Bld) 77 mL/min/1.73m??? Normal >=60 [facility] Comment on above: Order Comment: Speci men Type: BLOOD SPECIMENOrdering Facility: [facility] Address: [address] [place] [address] Result Comment: Rebekah mated Glomerular Filtration Rate [...] actual GFR. Performed By: #### 2 4323-8 ####[facility] LABIA [id number] [place] [address] Glucose [Mass/Vol] 87 mg/dL Normal 74-99 [facility] Comment on above: Order Comment: Speci men Type: BLOOD SPECIMENOrdering Facility: [facility] Address: [address], [place] [address] Result Comment: The [place] Diabetes [employer] (ADA) provides guidance for cutoff [...] Standards of Medical Care in Diabetes 2016, [place] [employer]. Diabetes Care. 2016.39(Suppl 1). Performed By: #### 2 4323-8 ####[facility] LABCLIA [id number] [place] [address] Potassium [Moles/Vol] 4.2 mmol/L Normal 3.7-5.1 [place] Comment on above: Order Comment: Speci men Type: BLOOD SPECIMENOrdering Facility: [facility] Address: [address] [place] [address] Performed By: #### 2 4323-8 ####[facility] LABCLIA [id number] [place] [address] Protein [Mass/Vol] 6.5 g/dL Normal 6.3-8.0 [facility] Comment on above: Order Comment: Speci men Type: BLOOD SPECIMENOrdering Facility: [facility] Address: [address] [place] [address] Performed By: #### 2 4323-8 ####[facility] LABCLIA [id number] [place] [address] Sodium [Moles/Vol] 143 mmol/L Normal 136-144 [facility] Comment on above: Order Comment: Speci men Type: BLOOD SPECIMENOrdering Facility: [facility] Address: [address] [place] [address] Performed By: #### 2 4323-8 ####[facility] LABCLIA [id number] [place] [address] Urea nitrogen [Mass/Vol] 16 mg/dL Normal 9-24 [facility] Comment on above: Order Comment: Speci men Type: BLOOD SPECIMENOrdering Facility: [facility] Address: [address] [place] [address] Performed By: #### 2 4323-8 ####[facility] LABCLIA [id number] [place] [address] No Panel InformationOrdered By: [facility] Provider on 12-24-2024 [facility] No Panel Informationon 12-24 Radiology Study observation (narrative) [facility] US ABDOMEN COMPLETEon 2024 US ABDOMEN COMPLETE EXAMINATION: COMPLETE ABDOMINAL ULTRASOUND 12/17/2024 9:01 am COMPARISON: None. HISTORY: ORDERING SYSTEM PROVIDED HISTORY: Right lower quadrant abdominal pain TECHNOLOGIST PROVIDED HISTORY: This procedure can be scheduled via Droplrhart. What reading provider will be dictating this exam?->CRC FINDINGS: LIVER: The liver demonstrates normal echogenicity without evidence of intrahepatic biliary ductal dilatation. BILIARY SYSTEM: Multiple gallstones seen. No wall thickening. No tenderness over the gallbladder fossa. common bile duct is within normal limits measuring 6 mm. KIDNEYS: Mild bilateral hydronephrosis PANCREAS: Visualized portions of the pancreas are unremarkable. SPLEEN: The spleen is unremarkable in appearance. Spleen is within normal limits in size. IVC: The IVC is patent. AORTA: Aorta is patent without aneurysm. OTHER: The area of right lower quadrant pain was evaluated. A small bowel containing hernia is identified, measuring 4.4 x 1.9 x 1.6 cm. The neck measures 0.6 cm IMPRESSION: 1. Cholelithiasis. 2. Mild bilateral hydronephrosis. 3. Small bowel containing hernia in the right lower quadrant. Interpreted by: Ranulfo Arauz MD Signed by: Ranulfo Arauz MD 12/17/24 Final result Normal [facility] US Abdomenon 12-17-2024 1. Cholelithiasis. 2. Mild bilateral hydronephrosis. 3. Small bowel containing hernia in the right lower quadrant. [facility] RAD[facility] EXAMINATION: COMPLETE ABDOMINAL ULTRASOUND 12/17/2024 9:01 am COMPARISON: None. HISTORY: ORDERING SYSTEM PROVIDED HISTORY: Right lower quadrant abdominal pain TECHNOLOGIST PROVIDED HISTORY: This procedure can be scheduled via MyChart. What reading provider will be dictating this exam?->CRC FINDINGS: LIVER: The liver demonstrates normal echogenicity without evidence of intrahepatic biliary ductal dilatation. BILIARY SYSTEM: Multiple gallstones seen. No wall thickening. No tenderness over the gallbladder fossa. common bile duct is within normal limits measuring 6 mm. KIDNEYS: Mild bilateral hydronephrosis PANCREAS: Visualized portions of the pancreas are unremarkable. SPLEEN: The spleen is unremarkable in appearance. Spleen is within normal limits in size. IVC: The IVC is patent. AORTA: Aorta is patent without aneurysm. OTHER: The area of right lower quadrant pain was evaluated. A small bowel containing hernia is identified, measuring 4.4 x 1.9 x 1.6 cm. The neck measures 0.6 cm [facility] - 12/17/2024 EXAMINATION: COMPLETE ABDOMINAL ULTRASOUND 12/17/2024 9:01 am COMPARISON: None. HISTORY: ORDERING SYSTEM PROVIDED HISTORY: Right lower quadrant abdominal pain TECHNOLOGIST PROVIDED HISTORY: This procedure can be scheduled via [employer]art. What reading provider will be dictating this exam?->CRC FINDINGS: LIVER: The liver demonstrates normal echogenicity without evidence of intrahepatic biliary ductal dilatation. BILIARY SYSTEM: Multiple gallstones seen. No wall thickening. No tenderness over the gallbladder fossa. common bile duct is within normal limits measuring 6 mm. KIDNEYS: Mild bilateral hydronephrosis PANCREAS: Visualized portions of the pancreas are unremarkable. SPLEEN: The spleen is unremarkable in appearance. Spleen is within normal limits in size. IVC: The IVC is patent. AORTA: Aorta is patent without aneurysm. OTHER: The area of right lower quadrant pain was evaluated. A small bowel containing hernia is identified, measuring 4.4 x 1.9 x 1.6 cm. The neck measures 0.6 cm IMPRESSION: 1. Cholelithiasis. 2. Mild bilateral hydronephrosis. 3. Small bowel containing hernia in the right lower quadrant. [facility] Radiology Study observation (narrative) [facility] US AbdomenOrdered By: Ranulfo Arauz on 12-17-2024 [facility] Work Phone: CBC W Auto Differential pane l (Bld)on 12-07-2024 Basophils (Bld) [#/Vol] 0.07 10*3/uL [facility] Basophils/100 WBC (Bld) 0.9 % [facility] Differential cell count method Nom (Bld) Auto [facility] Eosinophils (Bld) [#/Vol] 0.29 10*3/uL [facility] Eosinophils/100 WBC (Bld) 3.6 % [facility] Erythrocyte distribution width (RBC) [Ratio] 15.5 % High 11.5 - 15.0 % [facility] Hematocrit (Bld) [Volume fraction] 34.7 % Low 39.0 - 51.0 % [facility] Hemoglobin (Bld) [Mass/Vol] 11.1 g/dL Low 13.0 - 17.0 g/dL [facility] Immature granulocytes (Bld) [#/Vol] 0.04 10*3/uL [facility] Immature granulocytes/100 WBC (Bld) 0.5 % [facility] Interpretation and review of laboratory results Abnormal [facility] Lymphocytes (Bld) [#/Vol] 1.13 10*3/uL [facility] Lymphocytes/100 WBC (Bld) 13.8 % [facility] MCH (RBC) [Entitic mass] 29.1 pg 26.0 - 34.0 pg [facility] MCHC (RBC) [Mass/Vol] 32 g/dL 30.5 - 36.0 g/dL [facility] MCV (RBC) [Entitic vol] 90.8 fL 80.0 - 100.0 fL [facility] Monocytes (Bld) [#/Vol] 0.62 10*3/uL [facility] Monocytes/100 WBC (Bld) 7.6 % [facility] Neutrophils (Bld) [#/Vol] 6.01 10*3/uL [facility] Neutrophils/100 WBC (Bld) 73.6 % [facility] Nucleated RBC (Bld) [#/Vol] [facility] Nucleated RBC/100 WBC (Bld) [Ratio] 0 % /100 WBC [facility] Platelet mean volume (Bld) [Entitic vol] 9.5 fL 9.0 - 12.7 fL [facility] Platelets (Bld) [#/Vol] 345 10*3/uL [facility] RBC (Bld) [#/Vol] 3.82 10*6/uL Low 4.20 - 6.0 0 m/uL [facility] WBC (Bld) [#/Vol] 8.16 10*3/uL [facility] Basophils (Bld) [#/Vol] 0.07 10*3/uL Normal <0.11 [facility] Comment on above: Order Comment: Speci men Type: BLOOD SPECIMENOrdering Facility: [facility] Address: [address] [place] [address] Performed By: #### 5 7021-8 ####[facility] LABCLIA [id number] [place] [address] Basophils/100 WBC (Bld) 0.9 % Normal [facility] Comment on above: Order Comment: Speci men Type: BLOOD SPECIMENOrdering Facility: [facility] Address: [address] [place] [address] Performed By: #### 5 7021-8 ####[facility] LABCLIA [id number] [place] [address] Differential cell count method Nom (Bld) Auto Normal [facility] Comment on above: Order Comment: Speci men Type: BLOOD SPECIMENOrdering Facility: [facility] Address: [address] [place] [address] Performed By: #### 5 7021-8 ####[facility] LABCLIA [id number] [place] [address] Eosinophils (Bld) [#/Vol] 0.29 10*3/uL Normal <0.46 [facility] Comment on above: Order Comment: Speci men Type: BLOOD SPECIMENOrdering Facility: [facility] Address: [address] [place] [address] Performed By: #### 5 7021-8 ####[facility] LABCLIA [id number] [place] [address] Eosinophils/100 WBC (Bld) 3.6 % Normal [facility] Comment on above: Order Comment: Speci men Type: BLOOD SPECIMENOrdering Facility: [facility] Address: [address] [place] [address] Performed By: #### 5 7021-8 ####[facility] LABCLIA [id number] [place] [address] Erythrocyte distribution width (RBC) [Ratio] 15.5 % High 11.5-15.0 [facility] Comment on above: Order Comment: Speci men Type: BLOOD SPECIMENOrdering Facility: [facility] Address: [address] [place] [address] Performed By: #### 5 7021-8 ####[facility] LABCLIA [id number] [place] [address] Hematocrit (Bld) [Volume fraction] 34.7 % Low 39.0-51.0 [facility] Comment on above: Order Comment: Speci men Type: BLOOD SPECIMENOrdering Facility: [facility] Address: [address] [place] [address] Performed By: #### 5 7021-8 ####[facility] LABCLIA [id number] [place] [address] Hemoglobin (Bld) [Mass/Vol] 11.1 g/dL Low 13.0-17.0 [facility] Comment on above: Order Comment: Speci men Type: BLOOD SPECIMENOrdering Facility: [facility] Address: [address] [place] [address] Performed By: #### 5 7021-8 ####[facility] LABCLIA [id number] [place] [address] Immature granulocytes (Bld) [#/Vol] 0.04 10*3/uL Normal <0.10 [facility] Comment on above: Order Comment: Speci men Type: BLOOD SPECIMENOrdering Facility: [facility] Address: [address] [place] [address] Performed By: #### 5 7021-8 ####[facility] LABCLIA [id number] [place] [address] Immature granulocytes/100 WBC (Bld) 0.5 % Normal [facility] Comment on above: Order Comment: Speci men Type: BLOOD SPECIMENOrdering Facility: [facility] Address: [address] [place] [address] Performed By: #### 5 7021-8 ####[facility] LABCLIA [id number] [place] [address] Lymphocytes (Bld) [#/Vol] 1.13 10*3/uL Normal 1.00-4.00 [facility] Comment on above: Order Comment: Speci men Type: BLOOD SPECIMENOrdering Facility: [facility] Address: [address] [place] [address] Performed By: #### 5 7021-8 ####[facility] LABCLIA [id number] [place] [address] Lymphocytes/100 WBC (Bld) 13.8 % Normal [facility] Comment on above: Order Comment: Speci men Type: BLOOD SPECIMENOrdering Facility: [facility] Address: [address] [place] [address] Performed By: #### 5 7021-8 ####[facility] LABCLIA [id number] [place] [address] MCH (RBC) [Entitic mass] 29.1 pg Normal 26.0-34.0 [facility] Comment on above: Order Comment: Speci men Type: BLOOD SPECIMENOrdering Facility: [facility] Address: [address] [place] [address] Performed By: #### 5 7021-8 ####[facility] LABIA [id number] [place] [address] MCHC (RBC) [Mass/Vol] 32.0 g/dL Normal 30.5-36.0 [place] Comment on above: Order Comment: Speci men Type: BLOOD SPECIMENOrdering Facility: [facility] Address: [address] [place] [address] Performed By: #### 5 7021-8 ####[facility] LABCLIA [id number] [place] [address] MCV (RBC) [Entitic vol] 90.8 fL Normal 80.0-100.0 [facility] Comment on above: Order Comment: Speci men Type: BLOOD SPECIMENOrdering Facility: [facility] Address: [address] [place] [address] Performed By: #### 5 7021-8 ####[facility] LABCLIA [id number] [place] [address] Monocytes (Bld) [#/Vol] 0.62 10*3/uL Normal <0.87 [facility] Comment on above: Order Comment: Speci men Type: BLOOD SPECIMENOrdering Facility: [facility] Address: [address] [place] [address] Performed By: #### 5 7021-8 ####[facility] LABCLIA [id number] [place] [address] Monocytes/100 WBC (Bld) 7.6 % Normal [facility] Comment on above: Order Comment: Speci men Type: BLOOD SPECIMENOrdering Facility: [facility] Address: [address] [place] [address] Performed By: #### 5 7021-8 ####[facility] LABCLIA [id number] [place] [address] Neutrophils (Bld) [#/Vol] 6.01 10*3/uL Normal 1.45-7.50 [facility] Comment on above: Order Comment: Speci men Type: BLOOD SPECIMENOrdering Facility: [facility] Address: [address] [place] [address] Performed By: #### 5 7021-8 ####[facility] LABCLIA [id number] [place] [address] Neutrophils/100 WBC (Bld) 73.6 % Normal [facility] Comment on above: Order Comment: Speci men Type: BLOOD SPECIMENOrdering Facility: [facility] Address: [address] [place] [address] Performed By: #### 5 7021-8 ####[facility] LABCLIA [id number] [place] [address] Nucleated RBC (Bld) [#/Vol] 10*3/uL Normal <0.01 [facility] Comment on above: Order Comment: Speci men Type: BLOOD SPECIMENOrdering Facility: [facility] Address: [address] [place] [address] Performed By: #### 5 7021-8 ####[facility] LABCLIA [id number] [place] [address] Nucleated RBC/100 WBC (Bld) [Ratio] 0.0 /100 WBC Normal [facility] Comment on above: Order Comment: Speci men Type: BLOOD SPECIMENOrdering Facility: [facility] Address: [address] [place] [address] Performed By: #### 5 7021-8 ####[facility] LABCLIA [id number] [place] [address] Platelet mean volume (Bld) [Entitic vol] 9.5 fL Normal 9.0-12.7 [facility] Comment on above: Order Comment: Speci men Type: BLOOD SPECIMENOrdering Facility: [facility] Address: [address] [place] [address] Performed By: #### 5 7021-8 ####[facility] LABIA [id number] [place] [address] Platelets (Bld) [#/Vol] 345 10*3/uL Normal 150-400 [facility] Comment on above: Order Comment: Speci men Type: BLOOD SPECIMENOrdering Facility: [facility] Address: [address] [place] [address] Performed By: #### 5 7021-8 ####[facility] LABCLIA [id number] [place] [address] RBC (Bld) [#/Vol] 3.82 10*6/uL Low 4.20-6.00 [facility] Comment on above: Order Comment: Speci men Type: BLOOD SPECIMENOrdering Facility: [facility] Address: [address] [place] [address] Performed By: #### 5 7021-8 ####[facility] LABCLIA [id number] [place] [address] WBC (Bld) [#/Vol] 8.16 10*3/uL Normal 3.70-11.00 [facility] Comment on above: Order Comment: Speci men Type: BLOOD SPECIMENOrdering Facility: [facility] Address: [address] [place] [address] Performed By: #### 5 7021-8 ####[facility] LABCLIA [id number] [place] [address] CNOVSPon 12-07-2024 CNOVSP Normal [facility] Comprehensive metabolic 2000 panelOrdered By: Toshia Stokes on 12-07-2024 Albumin [Mass/Vol] 3.6 g/dL Low 3.9 - 4.9 g/dL [facility] ALP [Catalytic activity/Vol] 96 U/L 38 - 113 U/L [facility] ALT [Catalytic activity/Vol] 5 U/L Low 10 - 54 U/L [facility] Anion gap [Moles/Vol] 11 mmol/L 8 - 15 mmol/L [facility] AST [Catalytic activity/Vol] 8 U/L Low 14 - 40 U/L [facility] Bilirubin [Mass/Vol] 0.3 mg/dL 0.2 - 1 .3 mg/dL [facility] Calcium [Mass/Vol] 9.2 mg/dL 8.5 - 10. 2 mg/dL [facility] Chloride [Moles/Vol] 104 mmol/L 98 - 10 7 mmol/L [facility] CO2 [Moles/Vol] 25 mmol/L 22 - 30 mmol/L [facility] Creatinine [Mass/Vol] 1.04 mg/dL 0.73 - 1.22 mg/dL [facility] GFR/1.73 sq M.predicted among non-blacks MDRD (S/P/Bld) [Vol rate/Area] 76 mL/min/{1.73_m2} - PINF [facility] Comment on above: Estimated Glomerular Filtration Rate (eGFR) is calculated using the 2020 CKD-EPI creatinine equation. This equation utilizes serum creatinine, sex, and age as parameters. The creatinine assay has traceable calibration to isotope dilution-mass spectrometry. Refer to KDIGO guidelines for clinical interpretation. In patients with unstable renal function, e.g. those with acute kidney injury, the eGFR may not accurately reflect actual GFR. Glucose [Mass/Vol] 132 mg/dL High 74 - 99 mg/dL [facility] Comment on above: The [place] [employer] (ADA) provides guidance for cutoff values for fasting glucose and random glucose. The ADA defines fasting as no caloric intake for at least 8 hours. Fasting plasma glucose results between 100 to 125 mg/dL indicate increased risk for diabetes (prediabetes). Fasting plasma glucose results greater than or equal to 126 mg/dL meet the criteria for diagnosis of diabetes. In the absence of unequivocal hyperglycemia, results should be confirmed by repeat testing. In a patient with classic symptoms of hyperglycemia or hyperglycemic crisis, random plasma glucose results greater than or equal to 200 mg/dL meet the criteria for diagnosis of diabetes. Reference: Standards of Medical Care in Diabetes 2016, [place] [employer]. Diabetes Care. 2016.39(Suppl 1). Interpretation and review of laboratory results Abnormal [facility] Potassium [Moles/Vol] 3.7 mmol/L 3.7 - 5.1 mmol/L [facility] Protein [Mass/Vol] 5.9 g/dL Low 6.3 - 8.0 g/dL [facility] Sodium [Moles/Vol] 140 mmol/L 136 - 144 mmol/L [facility] Urea nitrogen [Mass/Vol] 17 mg/dL 9 - 24 mg/dL [facility] Comprehensive metabolic 2000 panelon 12-07-2024 Albumin [Mass/Vol] 3.6 g/dL Low 3.9-4.9 [facility] Comment on above: Order Comment: Speci men Type: BLOOD SPECIMENOrdering Facility: [facility] Address: [address] [place] [address] Performed By: #### 2 4323-8 ####[facility] LABCLIA [id number] [place] [address] ALP [Catalytic activity/Vol] 96 U/L Normal 38-113 [facility] Comment on above: Order Comment: Speci men Type: BLOOD SPECIMENOrdering Facility: [facility] Address: [address] [place] [address] Performed By: #### 2 4323-8 ####[facility] LABCLIA [id number] [place] [address] ALT [Catalytic activity/Vol] 5 U/L Low 10-54 [facility] Comment on above: Order Comment: Speci men Type: BLOOD SPECIMENOrdering Facility: [facility] Address: [address] [place] [address] Performed By: #### 2 4323-8 ####[facility] LABCLIA [id number] [place] [address] Anion gap [Moles/Vol] 11 mmol/L Normal 8-15 [place] Comment on above: Order Comment: Speci men Type: BLOOD SPECIMENOrdering Facility: [facility] Address: [address] [place] [address] Performed By: #### 2 4323-8 ####[facility] LABCLIA [id number] [place] [address] AST [Catalytic activity/Vol] 8 U/L Low 14-40 [facility] Comment on above: Order Comment: Speci men Type: BLOOD SPECIMENOrdering Facility: [facility] Address: [address] [place] [address] Performed By: #### 2 4323-8 ####[facility] LABCLIA [id number] [place] [address] Bilirubin [Mass/Vol] 0.3 mg/dL Normal 0.2-1.3 [facility] Comment on above: Order Comment: Speci men Type: BLOOD SPECIMENOrdering Facility: [facility] Address: [address] [place], [place] [address] Performed By: #### 2 4323-8 ####[facility] LABCLIA [id number] [place] [address] Calcium [Mass/Vol] 9.2 mg/dL Normal 8.5-10.2 [facility] Comment on above: Order Comment: Speci men Type: BLOOD SPECIMENOrdering Facility: [facility] Address: [address] [place], [place] [address] Performed By: #### 2 4323-8 ####[facility] LABCLIA [id number] [place] [address] Chloride [Moles/Vol] 104 mmol/L Normal 98-107 [facility] Comment on above: Order Comment: Speci men Type: BLOOD SPECIMENOrdering Facility: [facility] Address: [address] [place] [address] Performed By: #### 2 4323-8 ####[facility] LABCLIA [id number] [place] [address] CO2 [Moles/Vol] 25 mmol/L Normal 22-30 [facility] Comment on above: Order Comment: Speci men Type: BLOOD SPECIMENOrdering Facility: [facility] Address: [address] [place] [address] Performed By: #### 2 4323-8 ####[facility] LABCLIA [id number] [place] [address] Creatinine [Mass/Vol] 1.04 mg/dL Normal 0.73-1.22 [place] Comment on above: Order Comment: Speci men Type: BLOOD SPECIMENOrdering Facility: [facility] Address: [address] [place], [place] [address] Performed By: #### 2 4323-8 ####[facility] LABCLIA [id number] [place] [address] Creatinine and Glomerular filtration rate.predicted panel (S/P/Bld) 76 mL/min/1.73m??? Normal >=60 [facility] Comment on above: Order Comment: Nazario brooks Type: BLOOD SPECIMENOrdering Facility: [facility] Address: [address] [place] [address] Result Comment: Rebekah mated Glomerular Filtration Rate [...] actual GFR. Performed By: #### 2 4323-8 ####[facility] LABCLIA [id number] [place] [address] Glucose [Mass/Vol] 132 mg/dL High 74-99 [facility] Comment on above: Order Comment: Nazario brooks Type: BLOOD SPECIMENOrdering Facility: [facility] Address: [address] [place] [address] Result Comment: The [place] [employer] (ADA) provides guidance for cutoff [...] Standards of Medical Care in Diabetes 2016, [place] [employer]. Diabetes Care. 2016.39(Suppl 1). Performed By: #### 2 4323-8 ####[facility] LABCLIA [id number] [place] [address] Potassium [Moles/Vol] 3.7 mmol/L Normal 3.7-5.1 [place] Comment on above: Order Comment: Speci men Type: BLOOD SPECIMENOrdering Facility: [facility] Address: [address] [place] [address] Performed By: #### 2 4323-8 ####[facility] LABCLIA [id number] [place] [address] Protein [Mass/Vol] 5.9 g/dL Low 6.3-8.0 [facility] Comment on above: Order Comment: Speci men Type: BLOOD SPECIMENOrdering Facility: [facility] Address: [address] [place] [address] Performed By: #### 2 4323-8 ####[facility] LABCLIA [id number] [place] [address] Sodium [Moles/Vol] 140 mmol/L Normal 136-144 [facility] Comment on above: Order Comment: Speci men Type: BLOOD SPECIMENOrdering Facility: [facility] Address: [address] [place] [address] Performed By: #### 2 4323-8 ####[facility] LABCLIA [id number] [place] [address] Urea nitrogen [Mass/Vol] 17 mg/dL Normal 9-24 [facility] Comment on above: Order Comment: Speci men Type: BLOOD SPECIMENOrdering Facility: [facility] Address: [address] [place] [address] Performed By: #### 2 4323-8 ####[facility] LABCLIA [id number] [place] [address] CEA SerPl-ncon 11-25-2024 Carcinoembryonic Ag [Mass/Vol] 1.4 ng/mL Normal <=2.9 [facility] Comment on above: Order Comment: Speci men Type: BLOOD SPECIMENOrdering Facility: [facility] Address: [address] [place] [address] Result Comment: Carc inoembryonic antigen test is [...] used interchangeably. Performed By: #### 2 039-6 ####[facility] LABCLIA [id number] [place] [address] [place] [facility] CREATININE BLDon 11-25-2024 Creatinine [Mass/Vol] 1.01 mg/dL Normal 0.73-1.22 [place] Comment on above: Order Comment: Speci men Type: BLOOD SPECIMENOrdering Facility: [facility] Address: [address] [place] [address] Performed By: #### C RET1 ####[facility] [id number] [address] Creatinine and Glomerular filtration rate.predicted panel (S/P/Bld) 79 mL/min/1.73m??? Normal >=60 [facility] Comment on above: Order Comment: Speci men Type: BLOOD SPECIMENOrdering Facility: [facility] Address: [address] [place] [address] Result Comment: Rebekah mated Glomerular Filtration Rate [...] accurately reflect actual GFR. Performed By: #### C RET1 ####[facility] LABIA [id number] [place] [address] [place] ANES POSTPROC EVALon 025 ANES POSTPROC EVAL HNO ID: [id number] Author: BRDA VILLEDA MD Service: Anesthesiology Author Type: Physician Type: Anesthesia Postprocedure Evaluation Filed: 11/24/2024 12:54 Note Text: POST ANESTHESIA EVALUATION NOTE : 1950 Procedure Summary Date: 11/24/24 Room / Location: Procedures Anesthesia Start: 1151 Anesthesia Stop: 1203 Procedure: SIGMOIDOSCOPY Diagnosis: Encounter for follow-up surveillance of rectal cancer (High risk colon cancer surveillance: Personal history of rectal cancer) Scheduled Providers: Deborah Norman MD; Brad Villeda MD; Carmelina Fung AA; Kalpana Latham RN Responsible Provider: Brad Villeda MD Anesthesia Type: MAC ASA Status: 2 Anesthesia Type: MAC Last Vitals Vitals Value Taken Time BP 131/85 11/24/24 1220 Temp 36.1 ?C (97 ?F) 11/24/24 1200 HR SpO2 68 11/24/24 1226 Resp 18 11/24/24 1220 SpO2 96 % 11/24/24 1226 Vitals shown include unfiled device data. Post Anesthesia Patient Status Patient Evaluation: PACU. PACU/ICU Patient Condition: stable. Anticipated Disposition: phase 2 then home. Neurological Status: aware and responsive. Pulmonary Status: breathing comfortably on room air Airway Control: returned to baseline unsupported. Cardiovascular Status: stable. Pain Management: satisfactory to patient Postoperative Hydration: acceptable. Intraoperative Events: no significant anesthesia events Recommendation: continue current plan of care. Anesthesia Observations No Documentation SIGNATURE: Brad Villeda MD PATIENT NAME: Mervat Grayson DATE: November 24, 2024 TIME: 12:54 PM CSN: [id number] [facility] ANES PRE-OPon 11-24-2024 ANES PRE-OP HNO ID: [id number] Author: BRAD VILLEDA MD Service: Anesthesiology Author Type: Physician Type: Anesthesia Preprocedure Evaluation Filed: 11/24/2024 11:31 Note Text: ANESTHESIOLOGY DAY OF SURGERY NOTE : 1950 Procedure Information Date/Time: 11/24/24 1130 Scheduled providers: Deborah Norman MD; Brad Villeda MD; Carmelina Fung AA; Kalpana Latham RN Procedure: SIGMOIDOSCOPY Location: Procedures Estimated body mass index is 28.37 kg/m? as calculated from the following: Height as of this encounter: 188 cm (6' 2 ). Weight as of this encounter: 100.2 kg (221 lb). Most recent hematocrit and potassium results: Hematocrit 35.3 11/10/2024 Potassium 3.9 11/10/2024 Relevant Problems PULMONARY (+) Pulmonary embolus with infarction (HCC) Oncology (+) Rectal cancer ([facility]) Other (+) Obesity, Class I, BMI 30-34.9 (+) RA (rheumatoid arthritis) ([facility]) I - PHYSICAL EVALUATION AIRWAY Patient intubated: No. Tracheostomy tube not present Mallampati: II. TM distance: >3 FB. Neck ROM: full. Mouth opening: adequate. Short neck: no. Thick neck: no Mac present: no DENTAL Normal dental observations. Dental findings: teeth intact. Additional exam findings: no II - ANESTHESIA PLAN ASA Score: 2 Anesthetic Plan: MAC NPO Status: adequate Beta Taina Monitoring Plan Monitoring plan: Standard ASA. Post Procedure Analgesic Plan Postoperative analgesic plan: parenteral or oral opioids. Informed Consent Anesthetic risks, benefits, alternatives, personnel and consent discussed: yes. Patient / Responsible Constitution Party agrees to proceed: yes Patient / Surrogate agrees to blood products: blood products not planned Significant changes in the patient condition since the History and Physical, not otherwise documented in primary service progress note: no. Potential Anesthesia issues that may suggest increased risk of complications or contraindication to planned procedure: none. Vitals Value Taken Time BP 124/100 11/24/24 1123 Pulse Resp 18 11/24/24 1123 Temp 36.5 ?C (97.7 ?F) 11/24/24 1123 SpO2 98 % 11/24/24 1123 Outpatient Medications as of 11/24/2024 Medication Sig valsartan (DIOVAN) 80 mg tablet Take 80 mg by mouth once daily. carvedilol (COREG) 6.25 mg tablet Take 6.25 mg by mouth twice daily with meals. XARELTO 20 mg tablet TAKE ONE TABLET BY MOUTH DAILY WITH DINNER sodium chloride 0.9 %, flush, (NORMAL SALINE FLUSH) syringe Inject 10 mL intravenously every 12 hours. Flush each IR drain with 10mL normal saline every 12 hours. calcium carbonate (CALCIUM 600 ORAL) Take 1 tablet by mouth once daily. glucosamine/chondr perez A sod (GLUCOSAMINE-CHONDROITI N) 1,500-1,200 mg/30 mL liqd Take by mouth once daily. predniSONE (DELTASONE) 5 mg tablet Take 5 mg by mouth once daily. tamsulosin ER (FLOMAX) 0.4 mg cap Take 0.4 mg by mouth twice daily. Ascorbic Acid 100 mg tablet Take 100 mg by mouth twice daily. No current facility-administered medications on file as of 11/24/2024. I have interviewed and examined the patient. I have reviewed the medical record and/or the pre-anesthesia evaluation, pertinent labs, and test results. This contains updated information obtained within 48 hours of Surgery/Procedure. SIGNATURE: Brad Villeda MD PATIENT NAME: Mervat Grayson DATE: November 24, 2024 TIME: 11:30 AM CSN: [id number] Normal [facility] Flexible Sigmoidoscopyon Flexible sigmoidoscopy [facility] Gastrointestinal Endoscopy Patient Name: Mervat Grayson Procedure Date: 11/24/2024 11:45 AM Date of : 1950 Admit Type: Outpatient Age: 74 Room: [place] [address] Gender: Male Note Status: Finalized Attending MD: Deborah Norman MD, [id number] Procedure: Flexible Sigmoidoscopy Indications: High risk colon cancer surveillance: Personal history of rectal cancer Providers: Deborah Norman MD Patient Profile: This is a 74 year old male. Refer to note in [...] anesthesia team. Total Procedure Duration: 0 hours 1 minute 57 seconds Findings: The perianal and digital rectal examinations were normal. A scar was found in the rectum. The scar tissue was healthy in appearance. The exam was otherwise without abnormality. Impression: - Scar in the rectum. - The examination was otherwise normal. - No specimens collected. Recommendation: - Discharge patient to home. - Resume previous diet. - Repeat flexible sigmoidoscopy in 6 months for surveillance. Procedure Code(s): --- Professional --- 78703, 52, Sigmoidoscopy, flexible; diagnostic, including collection of specimen(s) by brushing or washing, when performed (separate procedure) CPT copyright 2020 [employer] [employer]. All rights reserved. The codes documented in this report are preliminary and upon emulsion coater review may be revised to meet current compliance requirements. Attending Participation: I personally performed the entire procedure. Scope In: 11:55:49 AM Scope Out: 11:57:46 AM MD Deborah Harper MD 11/24/2024 12:02:18 PM This report has been signed electronically by Deborah Norman MD Number of Addenda: 0 Note Initiated On: 11/24/2024 11:45 AM Estimated Blood Loss: Estimated blood loss: none. Normal [facility] Flexible sigmoidoscopy study on 11-24-2024 [facility] Gastrointestinal Endoscopy Patient Name: Mervat Grayson Procedure Date: 11/24/2024 11:45 AM Date of : 1950 Admit Type: Outpatient Age: 74 Room: [place] [address] Gender: Male Note Status: Finalized Attending MD: Deborah Norman MD, [id number] Procedure: Flexible Sigmoidoscopy Indications: High risk colon cancer surveillance: Personal history of rectal cancer Providers: Deborah Norman MD Patient Profile: This is a 74 year old male. Refer to note in [...] anesthesia team. Total Procedure Duration: 0 hours 1 minute 57 seconds Findings: The perianal and digital rectal examinations were normal. A scar was found in the rectum. The scar tissue was healthy in appearance. The exam was otherwise without abnormality. Impression: - Scar in the rectum. - The examination was otherwise normal. - No specimens collected. Recommendation: - Discharge patient to home. - Resume previous diet. - Repeat flexible sigmoidoscopy in 6 months for surveillance. Procedure Code(s): --- Professional --- 97641, 52, Sigmoidoscopy, flexible; diagnostic, including collection of specimen(s) by brushing or washing, when performed (separate procedure) CPT copyright 2020 [employer]. All rights reserved. The codes documented in this report are preliminary and upon emulsion coater review may be revised to meet current compliance requirements. Attending Participation: I personally performed the entire procedure. Scope In: 11:55:49 AM Scope Out: 11:57:46 AM MD Deborah Harper MD 11/24/2024 12:02:18 PM This report has been signed electronically by Deborah Norman MD Number of Addenda: 0 Note Initiated On: 11/24/2024 11:45 AM Estimated Blood Loss: Estimated blood loss: none. PROVATION [facility] Radiology Study observation (narrative) [facility] HISTORY PHYSICALon HISTORY PHYSICAL HNO ID: [id number] Author: DEBORAH NORMAN MD Service: Colorectal Author Type: Resident Type: H&P Filed: 11/24/2024 11:53 Note Text: Attestation signed by Deborah Norman MD at 11/24/2024 11:53 AM Attending Note I evaluated the patient and personally participated in the tripp components. I agree with the resident's findings and plan as documented and have discussed the case and management of the patient's care with the resident. Signature: Deborah Norman MD Date: 11/24/2024 Time: 11:53 AM ENDOSCOPY HISTORY AND PHYSICAL EXAM Mervat Grayson [id number] Subjective HPI: This is a 74 year old male who presents for endoscopy. PAST ANESTHESIA HISTORY: No history of adverse event PAST MEDICAL HISTORY Diagnosis Date Acute low back pain with possible spinal stenosis of less than six weeks' duration Adenocarcinoma of rectum (HCC) Arthritis Bilateral renal cysts peripelvic BPH with urinary obstruction Cholelithiasis History of kidney stones Non-ischemic cardiomyopathy (HCC) Perforation bowel (HCC) 07/29/2024 Pulmonary emboli (HCC) 2019 left lower lobe RA (rheumatoid arthritis) (HCC) PAST SURGICAL HISTORY Procedure Laterality Date COLONOSCOPY HAMMERTOE REVISION, ONE TOE HEMORRHOID SURGERY HX HERNIA REPAIR HX LITHOTRIPSY PROC UNILATERAL REMV CATARACT EXTRACAP,INSERT LENS Prior to Admission medications as of 11/24/24 1120 Medication Sig Last Dose Taking valsartan (DIOVAN) 80 mg tablet Take 80 mg by mouth once daily. 11/24/2024 Yes carvedilol (COREG) 6.25 mg tablet Take 6.25 mg by mouth twice daily with meals. 11/24/2024 Yes XARELTO 20 mg tablet TAKE ONE TABLET BY MOUTH DAILY WITH DINNER 11/22/2024 sodium chloride 0.9 %, flush, (NORMAL SALINE FLUSH) syringe Inject 10 mL intravenously every 12 hours. Flush each IR drain with 10mL normal saline every 12 hours. Unknown calcium carbonate (CALCIUM 600 ORAL) Take 1 tablet by mouth once daily. 11/22/2024 glucosamine/chondr perez A sod (GLUCOSAMINE-CHONDROITI N) 1,500-1,200 mg/30 mL liqd Take by mouth once daily. 11/22/2024 predniSONE (DELTASONE) 5 mg tablet Take 5 mg by mouth once daily. 11/22/2024 tamsulosin ER (FLOMAX) 0.4 mg cap Take 0.4 mg by mouth twice daily. 11/22/2024 Ascorbic Acid 100 mg tablet Take 100 mg by mouth twice daily. 11/22/2024 ALLERGIES No Known Allergies Objective PHYSICAL EXAM: The remainder of the physical exam is noncontributory. AIRWAY: LUNGS: Lungs clear to auscultation CARDIAC: Regular rhythm,Regular rate Assessment/Plan ASA Class: ASA Class: Patient with severe systemic disease Active Problems: * No active hospital problems. * Resolved Problems: * No resolved hospital problems. * Medication and Non-Pharmacologic VTE Prophylaxis/Anticoagula nts VTE Prophylaxis: not indicated for procedure Provisional Diagnosis/Treatment Plan: sigmoidoscopy under MAC sedation Consent has been signed Sedation Goal: Moderate Minerva Artis MD 11/24/2024 11:51 AM Normal [facility] CBC W Auto Differential pane l (Bld)on 11-10-2024 Basophils (Bld) [#/Vol] 0.07 10*3/uL NINF [facility] Basophils/100 WBC (Bld) 0.8 % [facility] Differential cell count method Nom (Bld) Auto [facility] Eosinophils (Bld) [#/Vol] 0.27 10*3/uL [facility] Eosinophils/100 WBC (Bld) 3.1 % [facility] Erythrocyte distribution width (RBC) [Ratio] 15.9 % High 11.5 - 15.0 % [facility] Hematocrit (Bld) [Volume fraction] 35.3 % Low 39.0 - 51.0 % [facility] Hemoglobin (Bld) [Mass/Vol] 11.2 g/dL Low 13.0 - 17.0 g/dL [facility] Immature granulocytes (Bld) [#/Vol] 0.03 10*3/uL [facility] Immature granulocytes/100 WBC (Bld) 0.3 % [facility] Interpretation and review of laboratory results Abnormal [facility] Lymphocytes (Bld) [#/Vol] 0.94 10*3/uL Low [facility] Lymphocytes/100 WBC (Bld) 10.8 % [facility] MCH (RBC) [Entitic mass] 29.2 pg 26.0 - 34.0 pg [facility] MCHC (RBC) [Mass/Vol] 31.7 g/dL 30.5 - 36.0 g/dL [facility] MCV (RBC) [Entitic vol] 91.9 fL 80.0 - 100.0 fL [facility] Monocytes (Bld) [#/Vol] 0.79 10*3/uL [facility] Monocytes/100 WBC (Bld) 9.0 % [facility] Monocytes/100 WBC (Bld) 9 % [facility] Neutrophils (Bld) [#/Vol] 6.64 10*3/uL [facility] Neutrophils/100 WBC (Bld) 76.0 % [facility] Neutrophils/100 WBC (Bld) 76 % [facility] Nucleated RBC (Bld) [#/Vol] [facility] Nucleated RBC/100 WBC (Bld) [Ratio] 0.0 % /100 WBC [facility] Nucleated RBC/100 WBC (Bld) [Ratio] 0 % /100 WBC [facility] Platelet mean volume (Bld) [Entitic vol] 9.4 fL 9.0 - 12.7 fL [facility] Platelets (Bld) [#/Vol] 263 10*3/uL [facility] RBC (Bld) [#/Vol] 3.84 10*6/uL Low 4.20 - 6.0 0 m/uL [facility] WBC (Bld) [#/Vol] 8.74 10*3/uL [facility] Basophils (Bld) [#/Vol] 0.07 10*3/uL Normal <0.11 [facility] Comment on above: Order Comment: Speci men Type: BLOOD SPECIMENOrdering Facility: [facility] Address: [address] [place] [address] Performed By: #### 5 7021-8 ####[facility] LABCLIA [id number] [place] [address] Basophils/100 WBC (Bld) 0.8 % Normal [facility] Comment on above: Order Comment: Speci men Type: BLOOD SPECIMENOrdering Facility: [facility] Address: [address] [place] [address] Performed By: #### 5 7021-8 ####[facility] LABCLIA [id number] [place] [address] Differential cell count method Nom (Bld) Auto Normal [facility] Comment on above: Order Comment: Speci men Type: BLOOD SPECIMENOrdering Facility: [facility] Address: [address] [place] [address] Performed By: #### 5 7021-8 ####[facility] LABCLIA [id number] [place] [address] Eosinophils (Bld) [#/Vol] 0.27 10*3/uL Normal <0.46 [facility] Comment on above: Order Comment: Speci men Type: BLOOD SPECIMENOrdering Facility: [facility] Address: [address] [place] [address] Performed By: #### 5 7021-8 ####[facility] LABCLIA [id number] [place] [address] Eosinophils/100 WBC (Bld) 3.1 % Normal [facility] Comment on above: Order Comment: Speci men Type: BLOOD SPECIMENOrdering Facility: [facility] Address: [address] [place] [address] Performed By: #### 5 7021-8 ####[facility] LABCLIA [id number] [place] [address] Erythrocyte distribution width (RBC) [Ratio] 15.9 % High 11.5-15.0 [facility] Comment on above: Order Comment: Speci men Type: BLOOD SPECIMENOrdering Facility: [facility] Address: [address] [place] [address] Performed By: #### 5 7021-8 ####[facility] LABCLIA [id number] [place] [address] Hematocrit (Bld) [Volume fraction] 35.3 % Low 39.0-51.0 [facility] Comment on above: Order Comment: Speci men Type: BLOOD SPECIMENOrdering Facility: [facility] Address: [address] [place] [address] Performed By: #### 5 7021-8 ####[facility] LABCLIA [id number] [place] [address] Hemoglobin (Bld) [Mass/Vol] 11.2 g/dL Low 13.0-17.0 [facility] Comment on above: Order Comment: Speci men Type: BLOOD SPECIMENOrdering Facility: [facility] Address: [address] [place] [address] Performed By: #### 5 7021-8 ####[facility] LABCLIA [id number] [place] [address] Immature granulocytes (Bld) [#/Vol] 0.03 10*3/uL Normal <0.10 [facility] Comment on above: Order Comment: Speci men Type: BLOOD SPECIMENOrdering Facility: [facility] Address: [address] [place] [address] Performed By: #### 5 7021-8 ####[facility] LABCLIA [id number] [place] [address] Immature granulocytes/100 WBC (Bld) 0.3 % Normal [facility] Comment on above: Order Comment: Speci men Type: BLOOD SPECIMENOrdering Facility: [facility] Address: [address] [place] [address] Performed By: #### 5 7021-8 ####[facility] LABCLIA [id number] [place] [address] Lymphocytes (Bld) [#/Vol] 0.94 10*3/uL Low 1.00-4.00 [facility] Comment on above: Order Comment: Speci men Type: BLOOD SPECIMENOrdering Facility: [facility] Address: [address] [place] [address] Performed By: #### 5 7021-8 ####[facility] LABCLIA [id number] [place] [address] Lymphocytes/100 WBC (Bld) 10.8 % Normal [facility] Comment on above: Order Comment: Speci men Type: BLOOD SPECIMENOrdering Facility: [facility] Address: [address] [place] [address] Performed By: #### 5 7021-8 ####[facility] LABCLIA [id number] [place] [address] MCH (RBC) [Entitic mass] 29.2 pg Normal 26.0-34.0 [facility] Comment on above: Order Comment: Speci men Type: BLOOD SPECIMENOrdering Facility: [facility] Address: [address] [place] [address] Performed By: #### 5 7021-8 ####[facility] LABIA [id number] [place] [address] MCHC (RBC) [Mass/Vol] 31.7 g/dL Normal 30.5-36.0 [place] Comment on above: Order Comment: Speci men Type: BLOOD SPECIMENOrdering Facility: [facility] Address: [address] [place] [address] Performed By: #### 5 7021-8 ####[facility] LABCLIA [id number] [place] [address] MCV (RBC) [Entitic vol] 91.9 fL Normal 80.0-100.0 [facility] Comment on above: Order Comment: Speci men Type: BLOOD SPECIMENOrdering Facility: [facility] Address: [address] [place] [address] Performed By: #### 5 7021-8 ####[facility] LABCLIA [id number] [place] [address] Monocytes (Bld) [#/Vol] 0.79 10*3/uL Normal <0.87 [facility] Comment on above: Order Comment: Speci men Type: BLOOD SPECIMENOrdering Facility: [facility] Address: [address] [place] [address] Performed By: #### 5 7021-8 ####[facility] LABCLIA [id number] [place] [address] Monocytes/100 WBC (Bld) 9.0 % Normal [facility] Comment on above: Order Comment: Speci men Type: BLOOD SPECIMENOrdering Facility: [facility] Address: [address] [place] [address] Performed By: #### 5 7021-8 ####[facility] LABCLIA [id number] [place] [address] Neutrophils (Bld) [#/Vol] 6.64 10*3/uL Normal 1.45-7.50 [facility] Comment on above: Order Comment: Speci men Type: BLOOD SPECIMENOrdering Facility: [facility] Address: [address] [place] [address] Performed By: #### 5 7021-8 ####[facility] LABCLIA [id number] [place] [address] Neutrophils/100 WBC (Bld) 76.0 % Normal [facility] Comment on above: Order Comment: Speci men Type: BLOOD SPECIMENOrdering Facility: [facility] Address: [address] [place] [address] Performed By: #### 5 7021-8 ####[facility] LABCLIA [id number] [place] [address] Nucleated RBC (Bld) [#/Vol] 10*3/uL Normal <0.01 [facility] Comment on above: Order Comment: Speci men Type: BLOOD SPECIMENOrdering Facility: [facility] Address: [address] [place] [address] Performed By: #### 5 7021-8 ####[facility] LABCLIA [id number] [place] [address] Nucleated RBC/100 WBC (Bld) [Ratio] 0.0 /100 WBC Normal [facility] Comment on above: Order Comment: Speci men Type: BLOOD SPECIMENOrdering Facility: [facility] Address: [address] [place] [address] Performed By: #### 5 7021-8 ####[facility] LABCLIA [id number] [place] [address] Platelet mean volume (Bld) [Entitic vol] 9.4 fL Normal 9.0-12.7 [facility] Comment on above: Order Comment: Speci men Type: BLOOD SPECIMENOrdering Facility: [facility] Address: [address] [place] [address] Performed By: #### 5 7021-8 ####[facility] LABCLIA [id number] [place] [address] Platelets (Bld) [#/Vol] 263 10*3/uL Normal 150-400 [facility] Comment on above: Order Comment: Speci men Type: BLOOD SPECIMENOrdering Facility: [facility] Address: [address] [place] [address] Performed By: #### 5 7021-8 ####[facility] LABCLIA [id number] [place] [address] RBC (Bld) [#/Vol] 3.84 10*6/uL Low 4.20-6.00 [facility] Comment on above: Order Comment: Speci men Type: BLOOD SPECIMENOrdering Facility: [facility] Address: [address] [place] [address] Performed By: #### 5 7021-8 ####[facility] LABCLIA [id number] [place] [address] WBC (Bld) [#/Vol] 8.74 10*3/uL Normal 3.70-11.00 [facility] Comment on above: Order Comment: Speci men Type: BLOOD SPECIMENOrdering Facility: [facility] Address: [address] [place] [address] Performed By: #### 5 7021-8 ####[facility] LABCLIA [id number] [place] [address] CNOVSPon 11-10-2024 CNOVSP Normal [facility] CNPNon 11-10-2024 CNPN Normal [facility] CT ABDOMEN W IVCONon 025 CT ABDOMEN W IVCON Normal [facility] CT Abdomen W contrast Ivelisse 0 11-10-2024 * * *Final Report* * * DATE OF EXAM: Nov 10 2024 11:56AM [facility] 0533 - CT ABDOMEN W IVCON / PROCEDURE REASON: Intra-abdominal and pelvic swelling, mass and lump, unspecified site * * * * Physician Interpretation * * * * RESULT: EXAMINATION: CT ABDOMEN WITH IV CONTRAST CLINICAL HISTORY: Rectal cancer TECHNIQUE: CT of the abdomen was performed using standard technique, scanning from just above the dome of the diaphragm to the iliac crest. MQ: CTAbdW_4 Contrast: IV: 100 ml of Omnipaque 350 Oral: 500 ml of Omni 240 10-25ml diluted with water CT Radiation dose: Integrated Dose-length product (DLP) for this visit = 1352 mGy*cm. CT Dose Reduction Employed: Automated exposure control (AEC) COMPARISON: 08/25/04 RESULT: Liver: No mass. Biliary: No bile duct dilation. Cholelithiasis. Spleen: No mass. No splenomegaly. Pancreas: No mass or duct dilation. Adrenals:No mass. Kidneys: Nonobstructing bilateral renal stones measuring up 4 mm. Bilateral parapelvic renal cysts. GI tract: No dilation or wall thickening. Sigmoid colon and left colon diverticulosis is noted without evidence of diverticulitis. Postoperative changes of the right colon. Interval removal of previously noted drainage catheter in right lower quadrant. Persistent inflammatory changes are noted along the surgical staple line in the right colon (4:99). No evidence of a drainable fluid collection. Lymph nodes: No abdominal lymphadenopathy. Mesentery/Peritoneum: Trace perihepatic ascites, slightly increased. Retroperitoneum: No mass. Vasculature: - Abdominal aorta: Atherosclerotic calcifications without aneurysm. - Celiac and SMA: Patent without stenosis. - Portal venous system (SMV, splenic vein, portal vein and branches): Patent. - Hepatic veins: Patent. Bones/Soft Tissues: No suspicious lytic or blastic osseous lesions. Lower thorax: Elevation of the left hemidiaphragm. Localizer images: No additional findings. DIVISION OF RADIOLOGY Provider, [facility] - 11/10/2024 * * *Final Report* * * DATE OF EXAM: Nov 10 2024 11:56AM [facility] 0533 - CT ABDOMEN W IVCON / PROCEDURE REASON: Intra-abdominal and pelvic swelling, mass and lump, unspecified site * * * * Physician Interpretation * * * * RESULT: EXAMINATION: CT ABDOMEN WITH IV CONTRAST CLINICAL HISTORY: Rectal cancer TECHNIQUE: CT of the abdomen was performed using standard technique, scanning from just above the dome of the diaphragm to the iliac crest. MQ: CTAbdW_4 Contrast: IV: 100 ml of Omnipaque 350 Oral: 500 ml of Omni 240 10-25ml diluted with water CT Radiation dose: Integrated Dose-length product (DLP) for this visit = 1352 mGy*cm. CT Dose Reduction Employed: Automated exposure control (AEC) COMPARISON: 08/25/04 RESULT: Liver: No mass. Biliary: No bile duct dilation. Cholelithiasis. Spleen: No mass. No splenomegaly. Pancreas: No mass or duct dilation. Adrenals:No mass. Kidneys: Nonobstructing bilateral renal stones measuring up 4 mm. Bilateral parapelvic renal cysts. GI tract: No dilation or wall thickening. Sigmoid colon and left colon diverticulosis is noted without evidence of diverticulitis. Postoperative changes of the right colon. Interval removal of previously noted drainage catheter in right lower quadrant. Persistent inflammatory changes are noted along the surgical staple line in the right colon (4:99). No evidence of a drainable fluid collection. Lymph nodes: No abdominal lymphadenopathy. Mesentery/Peritoneum: Trace perihepatic ascites, slightly increased. Retroperitoneum: No mass. Vasculature: - Abdominal aorta: Atherosclerotic calcifications without aneurysm. - Celiac and SMA: Patent without stenosis. - Portal venous system (SMV, splenic vein, portal vein and branches): Patent. - Hepatic veins: Patent. Bones/Soft Tissues: No suspicious lytic or blastic osseous lesions. Lower thorax: Elevation of the left hemidiaphragm. Localizer images: No additional findings. IMPRESSION IMPRESSION: 1. Persistent inflammatory changes along the surgical staple line in the right colon status post drainage catheter removal. No evidence of a drainable fluid collection. 2. Cholelithiasis. 3. Trace abdominal ascites, increased. 4. Nonobstructing bilateral renal stones. 5. Otherwise no evidence of intra-abdominal/pelvic metastases. Transcribe Date/Time: Nov 10 2024 2:30P Dictated by: JULI MITCHELL MD This examination was interpreted and the report reviewed and electronically signed by: JULI MITCHELL MD on Nov 10 2024 3:19PM EST Thank you for allowing us to participate in the care of your patient. Should there be any questions regarding this interpretation, please call [phone]. If you are unable to reach us at the number above, please feel free to contact [facility]iology at [phone]. [facility] CT PELVIS W IVCONon 11-10-19 CT PELVIS W IVCON Normal [facility] CT Pelvis W contrast Ivelisse * * *Final Report* * * DATE OF EXAM: Nov 10 2024 11:56AM [facility] 0555 - CT PELVIS W IVCON / PROCEDURE REASON: Malignant neoplasm of rectum (HCC) * * * * Physician Interpretation * * * * RESULT: EXAMINATION: CT ABDOMEN WITH IV CONTRAST CLINICAL HISTORY: Rectal cancer TECHNIQUE: CT of the abdomen was performed using standard technique, scanning from just above the dome of the diaphragm to the iliac crest. MQ: CTAbdW_4 Contrast: IV: 100 ml of Omnipaque 350 Oral: 500 ml of Omni 240 10-25ml diluted with water CT Radiation dose: Integrated Dose-length product (DLP) for this visit = 1352 mGy*cm. CT Dose Reduction Employed: Automated exposure control (AEC) COMPARISON: 08/25/04 RESULT: Liver: No mass. Biliary: No bile duct dilation. Cholelithiasis. Spleen: No mass. No splenomegaly. Pancreas: No mass or duct dilation. Adrenals:No mass. Kidneys: Nonobstructing bilateral renal stones measuring up 4 mm. Bilateral parapelvic renal cysts. GI tract: No dilation or wall thickening. Sigmoid colon and left colon diverticulosis is noted without evidence of diverticulitis. Postoperative changes of the right colon. Interval removal of previously noted drainage catheter in right lower quadrant. Persistent inflammatory changes are noted along the surgical staple line in the right colon (4:99). No evidence of a drainable fluid collection. Lymph nodes: No abdominal lymphadenopathy. Mesentery/Peritoneum: Trace perihepatic ascites, slightly increased. Retroperitoneum: No mass. Vasculature: - Abdominal aorta: Atherosclerotic calcifications without aneurysm. - Celiac and SMA: Patent without stenosis. - Portal venous system (SMV, splenic vein, portal vein and branches): Patent. - Hepatic veins: Patent. Bones/Soft Tissues: No suspicious lytic or blastic osseous lesions. Lower thorax: Elevation of the left hemidiaphragm. Localizer images: No additional findings. DIVISION OF RADIOLOGY Provider, [facility] - 11/10/2024 * * *Final Report* * * DATE OF EXAM: Nov 10 2024 11:56AM [facility] 0555 - CT PELVIS W IVCON / PROCEDURE REASON: Malignant neoplasm of rectum (HCC) * * * * Physician Interpretation * * * * RESULT: EXAMINATION: CT ABDOMEN WITH IV CONTRAST CLINICAL HISTORY: Rectal cancer TECHNIQUE: CT of the abdomen was performed using standard technique, scanning from just above the dome of the diaphragm to the iliac crest. MQ: CTAbdW_4 Contrast: IV: 100 ml of Omnipaque 350 Oral: 500 ml of Omni 240 10-25ml diluted with water CT Radiation dose: Integrated Dose-length product (DLP) for this visit = 1352 mGy*cm. CT Dose Reduction Employed: Automated exposure control (AEC) COMPARISON: 08/25/04 RESULT: Liver: No mass. Biliary: No bile duct dilation. Cholelithiasis. Spleen: No mass. No splenomegaly. Pancreas: No mass or duct dilation. Adrenals:No mass. Kidneys: Nonobstructing bilateral renal stones measuring up 4 mm. Bilateral parapelvic renal cysts. GI tract: No dilation or wall thickening. Sigmoid colon and left colon diverticulosis is noted without evidence of diverticulitis. Postoperative changes of the right colon. Interval removal of previously noted drainage catheter in right lower quadrant. Persistent inflammatory changes are noted along the surgical staple line in the right colon (4:99). No evidence of a drainable fluid collection. Lymph nodes: No abdominal lymphadenopathy. Mesentery/Peritoneum: Trace perihepatic ascites, slightly increased. Retroperitoneum: No mass. Vasculature: - Abdominal aorta: Atherosclerotic calcifications without aneurysm. - Celiac and SMA: Patent without stenosis. - Portal venous system (SMV, splenic vein, portal vein and branches): Patent. - Hepatic veins: Patent. Bones/Soft Tissues: No suspicious lytic or blastic osseous lesions. Lower thorax: Elevation of the left hemidiaphragm. Localizer images: No additional findings. IMPRESSION IMPRESSION: 1. Persistent inflammatory changes along the surgical staple line in the right colon status post drainage catheter removal. No evidence of a drainable fluid collection. 2. Cholelithiasis. 3. Trace abdominal ascites, increased. 4. Nonobstructing bilateral renal stones. 5. Otherwise no evidence of intra-abdominal/pelvic metastases. Transcribe Date/Time: Nov 10 2024 2:30P Dictated by: JULI MITCHELL MD This examination was interpreted and the report reviewed and electronically signed by: JULI MITCHELL MD on Nov 10 2024 3:19PM EST Thank you for allowing us to participate in the care of your patient. Should there be any questions regarding this interpretation, please call [phone]. If you are unable to reach us at the number above, please feel free to contact [facility] at [phone]. [facility] metabolic 2000 panelOrdered By: Ti Dooley on 11-10-2024 Albumin [Mass/Vol] 3.5 g/dL Low 3.9 - 4.9 g/dL [facility] ALP [Catalytic activity/Vol] 94 U/L 38 - 113 U/L [facility] ALT [Catalytic activity/Vol] 6 U/L Low 10 - 54 U/L [facility] Anion gap [Moles/Vol] 5 mmol/L Low 8 - 15 mmol/L [facility] AST [Catalytic activity/Vol] 8 U/L Low 14 - 40 U/L [facility] Bilirubin [Mass/Vol] 0.4 mg/dL 0.2 - 1 .3 mg/dL [facility] Calcium [Mass/Vol] 9.0 mg/dL 8.5 - 10. 2 mg/dL [facility] Calcium [Mass/Vol] 9 mg/dL 8.5 - 10. 2 mg/dL [facility] Chloride [Moles/Vol] 109 mmol/L High 98 - 10 7 mmol/L [facility] CO2 [Moles/Vol] 27 mmol/L 22 - 30 mmol/L [facility] Creatinine [Mass/Vol] 1.04 mg/dL 0.73 - 1.22 mg/dL [facility] GFR/1.73 sq M.predicted among non-blacks MDRD (S/P/Bld) [Vol rate/Area] 76 mL/min/{1.73_m2} - PINF [facility] Comment on above: Estimated Glomerular Filtration Rate (eGFR) is calculated using the 2020 CKD-EPI creatinine equation. This equation utilizes serum creatinine, sex, and age as parameters. The creatinine assay has traceable calibration to isotope dilution-mass spectrometry. Refer to KDIGO guidelines for clinical interpretation. In patients with unstable renal function, e.g. those with acute kidney injury, the eGFR may not accurately reflect actual GFR. Glucose [Mass/Vol] 88 mg/dL 74 - 99 mg/dL [facility] Comment on above: The [place] [employer] (ADA) provides guidance for cutoff values for fasting glucose and random glucose. The ADA defines fasting as no caloric intake for at least 8 hours. Fasting plasma glucose results between 100 to 125 mg/dL indicate increased risk for diabetes (prediabetes). Fasting plasma glucose results greater than or equal to 126 mg/dL meet the criteria for diagnosis of diabetes. In the absence of unequivocal hyperglycemia, results should be confirmed by repeat testing. In a patient with classic symptoms of hyperglycemia or hyperglycemic crisis, random plasma glucose results greater than or equal to 200 mg/dL meet the criteria for diagnosis of diabetes. Reference: Standards of Medical Care in Diabetes 2016, [place] [employer]. Diabetes Care. 2016.39(Suppl 1). Interpretation and review of laboratory results Abnormal [facility] Potassium [Moles/Vol] 3.9 mmol/L 3.7 - 5.1 mmol/L [facility] Protein [Mass/Vol] 6.1 g/dL Low 6.3 - 8.0 g/dL [facility] Sodium [Moles/Vol] 141 mmol/L 136 - 144 mmol/L [facility] Urea nitrogen [Mass/Vol] 15 mg/dL 9 - 24 mg/dL [facility] Comprehensive metabolic 2000 panelon 11-10-2024 Albumin [Mass/Vol] 3.5 g/dL Low 3.9-4.9 [facility] Comment on above: Order Comment: Speci todd Type: BLOOD SPECIMENOrdering Facility: [facility] Address: [address] [place] [address] Performed By: #### 2 4323-8 ####[facility] LABCLIA [id number] [place] [address] ALP [Catalytic activity/Vol] 94 U/L Normal 38-113 [facility] Comment on above: Order Comment: Isaii todd Type: BLOOD SPECIMENOrdering Facility: [facility] Address: [address] [place] [address] Performed By: #### 2 4323-8 ####[facility] LABCLIA [id number] [place] [address] ALT [Catalytic activity/Vol] 6 U/L Low 10-54 [facility] Comment on above: Order Comment: Isaii men Type: BLOOD SPECIMENOrdering Facility: [facility] Address: [address] [place] [address] Performed By: #### 2 4323-8 ####[facility] LABCLIA [id number] [place] [address] Anion gap [Moles/Vol] 5 mmol/L Low 8-15 [place] Comment on above: Order Comment: Speci men Type: BLOOD SPECIMENOrdering Facility: [facility] Address: [address] [place] [address] Performed By: #### 2 4323-8 ####[facility] LABCLIA [id number] [place] [address] AST [Catalytic activity/Vol] 8 U/L Low 14-40 [facility] Comment on above: Order Comment: Speci men Type: BLOOD SPECIMENOrdering Facility: [facility] Address: [address] [place] [address] Performed By: #### 2 4323-8 ####[facility] LABCLIA [id number] [place] [address] Bilirubin [Mass/Vol] 0.4 mg/dL Normal 0.2-1.3 [facility] Comment on above: Order Comment: Speci men Type: BLOOD SPECIMENOrdering Facility: [facility] Address: [address] [place] [address] Performed By: #### 2 4323-8 ####[facility] LABCLIA [id number] [place] [address] Calcium [Mass/Vol] 9.0 mg/dL Normal 8.5-10.2 [facility] Comment on above: Order Comment: Speci men Type: BLOOD SPECIMENOrdering Facility: [facility] Address: [address] [place] [address] Performed By: #### 2 4323-8 ####[facility] LABCLIA [id number] [place] [address] Chloride [Moles/Vol] 109 mmol/L High 98-107 [facility] Comment on above: Order Comment: Speci men Type: BLOOD SPECIMENOrdering Facility: [facility] Address: [address] [place] [address] Performed By: #### 2 4323-8 ####[facility] LABCLIA [id number] [place] [address] CO2 [Moles/Vol] 27 mmol/L Normal 22-30 [facility] Comment on above: Order Comment: Speci men Type: BLOOD SPECIMENOrdering Facility: [facility] Address: [address] [place] [address] Performed By: #### 2 4323-8 ####[facility] LABCLIA [id number] [place] [address] Creatinine [Mass/Vol] 1.04 mg/dL Normal 0.73-1.22 [place] Comment on above: Order Comment: Speci men Type: BLOOD SPECIMENOrdering Facility: [facility] Address: [address] [place] [address] Performed By: #### 2 4323-8 ####[facility] LABCLIA [id number] [place] [address] Creatinine and Glomerular filtration rate.predicted panel (S/P/Bld) 76 mL/min/1.73m??? Normal >=60 [facility] Comment on above: Order Comment: Speci men Type: BLOOD SPECIMENOrdering Facility: [facility] Address: [address] [place] [address] Result Comment: Rebekah mated Glomerular Filtration Rate [...] actual GFR. Performed By: #### 2 4323-8 ####[facility] LABCLIA [id number] [place] [address] Glucose [Mass/Vol] 88 mg/dL Normal 74-99 [facility] Comment on above: Order Comment: Speci men Type: BLOOD SPECIMENOrdering Facility: [facility] Address: [address] [place] [address] Result Comment: The [place] [employer] (ADA) provides guidance for cutoff [...] Standards of Medical Care in Diabetes 2016, [place] [employer]. Diabetes Care. 2016.39(Suppl 1). Performed By: #### 2 4323-8 ####[facility] LABCLIA [id number] [place] [address] Potassium [Moles/Vol] 3.9 mmol/L Normal 3.7-5.1 [place] Comment on above: Order Comment: Speci men Type: BLOOD SPECIMENOrdering Facility: [facility] Address: [address] [place] [address] Performed By: #### 2 4323-8 ####[facility] LABCLIA [id number] [place] [address] Protein [Mass/Vol] 6.1 g/dL Low 6.3-8.0 [facility] Comment on above: Order Comment: Speci men Type: BLOOD SPECIMENOrdering Facility: [facility] Address: [address] [place] [address] Performed By: #### 2 4323-8 ####[facility] LABCLIA [id number] [place] [address] Sodium [Moles/Vol] 141 mmol/L Normal 136-144 [facility] Comment on above: Order Comment: Speci men Type: BLOOD SPECIMENOrdering Facility: [facility] Address: [address] [place] [address] Performed By: #### 2 4323-8 ####[facility] LABCLIA [id number] [place] [address] Urea nitrogen [Mass/Vol] 15 mg/dL Normal 9-24 [facility] Comment on above: Order Comment: Speci men Type: BLOOD SPECIMENOrdering Facility: [facility] Address: [address] [place] [address] Performed By: #### 2 4323-8 ####[facility] LABCLIA [id number] [place] [address] No Panel Informationon 11-10 IMPRESSION: 1. Persistent inflammatory changes along the surgical staple line in the right colon status post drainage catheter removal. No evidence of a drainable fluid collection. 2. Cholelithiasis. 3. Trace abdominal ascites, increased. 4. Nonobstructing bilateral renal stones. 5. Otherwise no evidence of intra-abdominal/pelvic metastases. Transcribe Date/Time: Nov 10 2024 2:30P Dictated by: JULI MITCHELL MD This examination was interpreted and the report reviewed and electronically signed by: JULI MITCHELL MD on Nov 10 2024 3:19PM EST Thank you for allowing us to participate in the care of your patient. Should there be any questions regarding this interpretation, please call [phone]. If you are unable to reach us at the number above, please feel free to contact [facility]Radiology at [phone]. DIVISION OF RADIOLOGY Radiology Study observation (narrative) [facility] No Panel InformationOrdered By: Ccf Provider on 11-10-2024 [facility]24 CNPN Normal [facility] CNPNon 10-23-2024 CNPN Normal [facility] C. diff by PCRon 10-20-2024 Clostridium difficile by PCR Negative Normal Negative [facility] Comment on above: Order Comment: Order added by Discern Expert. Result Comment: This test result should be correlated with clinical presentations and medical history by a healthcare provider to determine its clinical significance. Performed By: #### 4 [id number] #### [facility] [address] [place] [address] CDiff PCRon 10-20-2024 C. difficile toxin A+B Ql (Stl) No, PCR to follow Normal [facility] Comment on above: Performed By: #### 3 [id number] #### [facility] [address] [place] [address] CNPNon 10-19-2024 CNPN Normal [facility] BMPon 09-27-2024 Anion gap [Moles/Vol] 10 mmol/L Normal 6-16 [facility] Comment on above: Performed By: #### 2 [id number] #### [facility] [address] [place] [address] Calcium [Mass/Vol] 8.5 mg/dL Low 8.9-11.1 [facility] Comment on above: Performed By: #### 2 [id number] #### [facility] [address] [place] [address] Chloride [Moles/Vol] 108 mmol/L Normal 101-111 [facility] Comment on above: Performed By: #### 2 710523 #### [facility] [address] [place] [address] CO2 [Moles/Vol] 27 mmol/L Normal 21-31 [facility] Comment on above: Performed By: #### 2 [id number] #### [facility] [address] [place] [address] Creatinine [Mass/Vol] 1.0 mg/dL Normal 0.5-1.3 [facility] Comment on above: Performed By: #### 2 [id number] #### [facility] [address] [place] [address] Glucose [Mass/Vol] 86 mg/dL Normal 55-199 [facility] Comment on above: Performed By: #### 2 584254 #### [facility] [address] [place] [address] Potassium [Moles/Vol] 3.6 mmol/L Normal 3.5-5.3 [facility] Comment on above: Performed By: #### 2 911793 #### [facility] [address] [place] [address] Sodium [Moles/Vol] 141 mmol/L Normal 135-145 [facility] Comment on above: Performed By: #### 2 [id number] #### [facility] [address] [place] [address] Urea nitrogen [Mass/Vol] 14 mg/dL Normal 5-21 [facility] Comment on above: Performed By: #### 2 016381 #### [facility] [address] [place] [address] Urea nitrogen/Creatinine [Mass ratio] 14 No Units Normal 10-20 [facility] Comment on above: Performed By: #### 2 [id number] #### [facility] [address] [place] [address] CBC w/ Auto Diffon 4 Basophils/100 WBC (Bld) 1.7 % Normal 0.0-2.0 [facility] Comment on above: Performed By: #### 2 [id number] #### [facility] [address] [place] [address] Basophils/Leukocytes Auto (Bld) [Pure # fraction] 0.1 E9/L Normal 0.0-0.2 [facility] Comment on above: Performed By: #### 2 533202 #### [facility] [address] [place] [address] Eosinophils (Bld) [#/Vol] 0.3 E9/L Normal 0.0-0.5 [facility] Comment on above: Performed By: #### 2 911629 #### [facility] [address] [place] [address] Eosinophils/100 WBC (Bld) 4.9 % Normal 0.0-8.0 [facility] Comment on above: Performed By: #### 2 904452 #### [facility] [address] [place] [address] Erythrocyte distribution width (RBC) [Ratio] 18.1 % High 10.9-14.2 [facility] Comment on above: Performed By: #### 2 850112 #### [facility] [address] [place] [address] Hematocrit (Bld) [Volume fraction] 34.8 % Low 37.7-49.0 [facility] Comment on above: Performed By: #### 2 637992 #### [facility] [address] [place] [address] Hemoglobin (Bld) [Mass/Vol] 11.5 g/dL Low 13.5-17.5 [facility] Comment on above: Performed By: #### 2 585033 #### [facility] [address] [place] [address] Lymphocytes (Bld) [#/Vol] 1.0 E9/L Normal 1.0-4.0 [facility] Comment on above: Performed By: #### 2 967510 #### [facility] [address] [place] [address] Lymphocytes/100 WBC (Bld) 16.9 % Normal 14.0-50.0 [facility] Comment on above: Performed By: #### 2 022835 #### [facility] [address] [place] [address] MCH (RBC) [Entitic mass] 30.7 pg Normal 27.0-34.0 [facility] Comment on above: Performed By: #### 2 648753 #### [facility] [address] [place] [address] MCHC (RBC) [Mass/Vol] 33.1 g/dL Normal 31.4-36.0 [facility] Comment on above: Performed By: #### 2 096196 #### [facility] [address] [place] [address] MCV (RBC) [Entitic vol] 92.8 fL Normal 80.0-100.0 [facility] Comment on above: Performed By: #### 2 624294 #### [facility] [address] [place] [address] Monocytes (Bld) [#/Vol] 0.7 E9/L Normal 0.2-1.0 [facility] Comment on above: Performed By: #### 2 [id number] #### [facility] [address] [place] [address] Neutrophils (Bld) [#/Vol] 3.6 E9/L Normal 2.0-7.5 [facility] Comment on above: Performed By: #### 2 155873 #### [facility] [address] [place] [address] Neutrophils/100 WBC (Bld) 64.5 % Normal 36.0-75.0 [facility] Comment on above: Result Comment: Shikha pheral smear review performed. Performed By: #### 2 [id number] #### [facility] [address] [place] [address] Platelet 260.0 E9/L Normal 150.0-500.0 [facility] Comment on above: Performed By: #### 2 [id number] #### [facility] [address] [place] [address] Platelet mean volume (Bld) [Entitic vol] 8.1 fL Normal 6.4-10.8 [facility] Comment on above: Performed By: #### 2 [id number] #### [facility] [address] [place] [address] RBC (Bld) [#/Vol] 3.8 E12/L Low 4.3-5.9 [facility] Comment on above: Performed By: #### 2 [id number] #### [facility] [address] [place] [address] WBC corrected for nucl RBC Auto (Bld) [#/Vol] 5.6 E9/L Normal 4.0-11.0 [facility] Comment on above: Performed By: #### 2 [id number] #### [facility] [address] [place] [address] CHEMISTRYOrdered By: SYSTEM SYSTEM on 09-27-2024 Albumin [Mass/Vol] 3.3 g/dL Normal 3.3 - 5.0 gm/dL [facility] Albumin/Globulin [Mass ratio] 1.3 {ratio} Normal 1.1 - 2.2 [facility] ALP [Catalytic activity/Vol] 83 [iU]/d Normal 21 - 98 Int._Unit/L [facility] ALT No additional P-5'-P [Catalytic activity/Vol] 10 [iU]/d Normal 6 - 46 Int._Unit/L [facility] Anion gap [Moles/Vol] 10 mmol/L Normal 6 - 16 mEq/L [facility] AST [Catalytic activity/Vol] 15 [iU]/d Normal 5 - 43 Int._Unit/L [facility] Bilirubin [Mass/Vol] 0.5 mg/dL Normal 0.0 - 1 .1 mg/dL [facility] Bilirubin.direct [Mass/Vol] 0.1 mg/dL Normal 0.0 - 0.4 mg/dL [facility] Bilirubin.indirect [Mass or moles/Vol] 0.4 mg/dL Normal 0.1 - 0.9 mg/dL [facility] Calcium [Mass/Vol] 8.5 mg/dL Low 8.9 - 11. 1 mg/dL [facility] Chloride [Moles/Vol] 108 mmol/L Normal 101 - 1 11 mmol/L [facility] CO2 [Moles/Vol] 27 mmol/L Normal 21 - 31 mmol/L [facility] Creatinine [Mass/Vol] 1.0 mg/dL Normal 0.5 - 1.3 mg/dL [facility] eGFR 80 mL/min/1.73 m2 Normal >=59mL/min / 1.73 m2 [facility] Globulin (S) [Mass/Vol] 2.5 g/dL Normal 1.4 - 4.0 gm/dL [facility] Glucose [Mass/Vol] 86 mg/dL Normal 55 - 199 mg/dL [facility] Potassium [Moles/Vol] 3.6 mmol/L Normal 3.5 - 5.3 mmol/L [facility] Protein [Mass/Vol] 5.8 g/dL Low 6.0 - 7.8 gm/dL [facility] Sodium [Moles/Vol] 141 mmol/L Normal 135 - 145 mmol/L [facility] Urea nitrogen [Mass/Vol] 14 mg/dL Normal 5 - 21 mg/dL [facility] Urea nitrogen/Creatinine [Mass ratio] 14 mg/mg Normal 10 - [address] Abdomen/Pelvis w/ Contras ton 09-27-2024 CT Abdomen/Pelvis w/ Contrast Exam Date/Time: 09/27/2024 14:15 EST Reason for Exam: Recent perforation, drains, partial colectomy. Lower abdominal pain.;Other (please specify) Report IMPRESSION: Interval partial right-sided colectomy. Trace free fluid and stranding. No loculated collection. No evidence for bowel obstruction. Cholelithiasis, unchanged. Nonobstructing renal calculi, unchanged. HISTORY: History of recent bowel perforation and partial colectomy. Abdominal pain. TECHNIQUE: CT of the abdomen and pelvis was performed using standard technique with intravenous contrast, scanning from just above the dome of the diaphragm to the symphysis pubis. Including delayed images through the kidneys. Including sagittal and coronal reconstructions on both phases. Unless otherwise stated, incidental findings identified in this report do not require routine follow-up imaging. All CT scans at this facility use dose modulation, iterative reconstruction, and/or weight based dosing when appropriate to reduce radiation dose to as low as reasonably achievable. COMPARISON: CT 07/22/2024. RESULT: Liver: No mass or lesion. Biliary: Cholelithiasis, unchanged. No bile duct dilation. Pancreas: No mass or duct dilation. Spleen: Calcified granulomas. Adrenals: No mass. Kidneys: Nonobstructing calculi, similar to prior. Parapelvic cysts. No suspicious renal lesions. Delayed phase images unremarkable. GI tract: No small bowel dilation. Diverticulosis, without distinct evidence for focal diverticulitis. Interval partial right-sided colectomy with anastomosis right lower quadrant. Lymph nodes: No abdominal or pelvic lymphadenopathy. Mesentery/Peritoneum/Re troperitoneum: Trace free fluid and stranding, especially right paracolic gutter and pelvis. No loculated collection. No pneumoperitoneum. Vasculature: The celiac axis and SMA are patent. The portal vein and branches, splenic vein, SMV, and hepatic veins are patent. No abdominal aortic or iliac artery Report aneurysm. Pelvis: Small volume free fluid. No loculated collection. Bladder unremarkable. Bones: No acute osseous findings. Degenerative changes, similar to prior. Soft tissues: No loculated collection. Areas of stranding. Lower thorax: Bibasilar atelectasis/scarring. Ordering Provider: Micky Cueto FINAL REPORT Dictated: 09/27/2024 2:39 pm Vinicius Buchanan MD Signed (Electronic Signature): 09/27/2024 2:39 pm Signed by: Vinicius Buchanan MD Transcribed by: VEENA Technologist: MONY Technical Comments GFR (mL/min/1/73m2) >60 Contrast: Isovue 300 Contrast amount in ml's: 100 Rectal Contrast Given? No Normal [facility] ED Clinical Summaryon 2023 ED Clinical Summary ED Clinical Summary [place] [id number] ED Clinical Summary Person Information Name: MERVAT GRAYSON [place] Age: 73 Years : 1950 Sex: Male Language: Bulgarian PCP: Lorenzo MARIN DO Marital Status: Visit Id: Visit Reason: Post surgical problem; Abdominal pain; LOWER ABD BURNING SENSATION-CONSTIPATION Speciality: Acuity: 3 Enc Type: Emergency Med Service: Emergency Arrival: 09/27/2024 11:26:26 Discharge: 09/27/2024 18:41:16 LOS: 000 07:15 Checkin: 09/27/2024 11:26:26 Checkout: 09/27/2024 18:41:16 Dispo Type: Home (Routine DC) EVENTS: Event Name Event Status Request Date/Time Start Date/Time Complete Date/Time Arrive Complete 09/27/2024 11:26:26 09/27/2024 11:26:26 09/27/2024 11:26:26 Document Home Meds Request 09/27/2024 11:26:26 Triage Complete 09/27/2024 11:26:26 09/27/2024 11:37:21 09/27/2024 11:37:21 Bed Assign Complete 09/27/2024 11:29:27 09/27/2024 11:29:27 09/27/2024 11:29:27 Dr Exam Complete 09/27/2024 11:29:27 09/27/2024 11:38:19 09/27/2024 11:38:19 RN Exam Complete 09/27/2024 11:29:27 09/27/2024 12:05:52 09/27/2024 12:05:52 Registration Complete 09/27/2024 11:30:37 09/27/2024 11:30:37 09/27/2024 11:30:37 Reg Complete Request 09/27/2024 11:30:37 Reg Bed Request Complete 09/27/2024 11:30:37 09/27/2024 11:30:37 09/27/2024 11:30:37 Registration Request 09/27/2024 11:38:19 CT Complete 09/27/2024 12:39:17 09/27/2024 13:51:16 09/27/2024 14:15:21 Pending Labs Complete 09/27/2024 12:39:17 09/27/2024 14:38:29 Lab Complete 09/27/2024 12:39:17 09/27/2024 14:10:35 Pending Labs Complete 09/27/2024 13:19:11 09/27/2024 13:19:11 09/27/2024 13:43:16 Lab Complete 09/27/2024 13:19:11 09/27/2024 13:19:11 09/27/2024 13:43:16 Pending Labs Complete 09/27/2024 14:55:30 09/27/2024 14:55:30 09/27/2024 14:55:31 Discharge Complete 09/27/2024 18:06:28 09/27/2024 18:41:21 09/27/2024 18:41:21 Transfer Complete 09/27/2024 18:41:21 09/27/2024 18:41:21 09/27/2024 18:41:21 ADDRESS: [address] [place] [address] [id number] [facility] DOC NOTES: MEDICAL INFORMATION: Prescriptions Given: Medications to Continue with No Changes Other Medications ascorbic acid (Vitamin C) 1,000 Milligram By Mouth every day. ascorbic acid/chondroitin/glucos a/angelo (Glucosamine Chondroitin) 1500mg/1200mg By Mouth every day. carvedilol (carvedilol 6.25 mg Tab) 1 Tablets By Mouth 2 times a day. Refills: 3. finasteride (finasteride 5 mg Tab) 1 Tablets By Mouth every day for 90 Days. Refills: 3. piperacillin predniSONE (predniSONE 5 mg Tab) take 1 tablet by mouth daily as directed START AFTER TAPER. rivaroxaban (Xarelto 15 mg oral tablet) 1 Tablets By Mouth. sildenafil (sildenafil 100 mg Tab) 1 Tablets By Mouth As Directed as needed erectile dysfunction. 1 hour before sexual activity. Refills: 3. tamsulosin (Flomax 0.4 mg Cap) 1 Capsules By Mouth 2 times a day. Refills: 3. valsartan (valsartan 80 mg Tab) 1 Tablets By Mouth every day for 90 Days. Refills: 3. PATIENT EDUCATION INFORMATION: Instructions: Abdominal Pain, Adult Follow up: With: Address: When: Your surgeon In 3 days 09/30/2024 Comments: Call the office tomorrow to arrange for follow-up care DIAGNOSIS: Abdominal pain Normal [facility] ED Note-Physicianon 09-27-20 ED Note-Physician ED Note-Physician Basic Information Time Seen: Micky Cueto DO 09/27/2024 11:38 Chief Complaint bowel resection in July, drains for infection placed and removed 10 days ago. lower mid abdominal pain started 7 days ago History of Present Illness 73-year-old male to the emergency department with chief complaint of lower abdominal pain. He reports the pain is burning in nature. It started 7 days ago. He denies any fever, sweats, chills. No redness, warmth, erythema. He had previous drains in his abdomen after a bowel resection in July. He discussed these pains he was having with his surgeon and was instructed to come to the emergency department for evaluation. Review of Systems A 10 point review of systems is negative except as noted above. Medical and Surgical History: Reviewed and noted Social history: Lives at home Tobacco: Denies Physical Exam Vitals & Measurements T: 36.9 ???C(Oral) HR: 77(Monitored) RR: 16 BP: 164/104 SpO2: 97% HT: 188 cm WT: 102.2 kg BMI: 28.92 VITALS: I have reviewed the triage vital signs. GENERAL: Well developed, well appearing adult in no acute distress. NEURO: Alert and oriented. Moves all extremities. Face is symmetric and expressive. EYES: PERRL. No scleral icterus or conjunctival injection. No discharge. HENT: Normocephalic, atraumatic. Hearing is grossly intact. Nares grossly patent and without discharge. Mucous membranes moist. NECK: No JVD. Patient moves neck without restriction. CARDIO: Rhythm regular. Normal rate. No murmur, rub, or gallop. Pulses equal bilaterally in the upper and lower extremity. No lower extremity edema. PULM: Lungs clear to auscultation in all gordon. No wheezes, rales, or rhonchi. No conversational dyspnea. No splinting, stridor, or accessory muscle use. GI/: Abdomen is soft and non-tender. Normoactive bowel sounds. Surgical sites without evidence of infection. EXTREMITIES: Symmetric muscle bulk. No joint swelling. No clubbing, cyanosis, or deformity. SKIN: Warm and dry. Normal turgor. No rash or lesions appreciated. PSYCH: Mood, affect, and interaction is appropriate to the setting. Medical Decision Making Well-appearing 73-year-old male to the emergency department chief complaint of lower abdominal pain in the setting of being postop status post drains for a partial colectomy. Vital stable, the patient is afebrile. Lab work is unremarkable. No leukocytosis. His CT scan shows some trace fluid in the pelvis, some stranding. Given his recent history of these are not surprising findings. There is no discrete abscess visualized. I did discussed via telephone with Dr. Santos who is on-call for his surgeon Dr. Norman. She reports no need for antibiotics. He may follow-up with colorectal surgery in office this week for repeat evaluation. Patient was pleased with this plan. The patient was discharged home. Assessment/Plan Abdominal pain (R10.9: Unspecified abdominal pain) Orders: Basic Metabolic Panel CBC w/ Auto Diff CT Abdomen/Pelvis w/ Contrast eGFR Extra Blue Tube Extra SST Tube Hepatic Function Panel UA with Cult Rflx Disposition Plan Patient Discharge Condition Stable Discharge Disposition Home Discharge Prescription List Prescriptions No active prescription medications Follow-up With When Contact Information Your surgeon In 3 days 09/30/2024 EST Additional Instructions: Call the office tomorrow to arrange for follow-up care Patient Education Abdominal Pain, Adult Problem List/Past Medical History Ongoing BMI 31.0-31.9,adult BPH with urinary obstruction Cervical spinal stenosis Erectile dysfunction Kidney stones Neck pain without injury Non-ischemic cardiomyopathy Prostate cancer screening RA - Rheumatoid arthritis Rectal cancer Smoker Tobacco non-user Historical No qualifying data Procedure/Surgical History Urodynamics (08/22/2023), Cystoscopy (06/04/2023), Sigmoidoscopy (08/20/2022), Cataract extraction and insertion of intraocular lens (02/24/2019), Cataract extraction and insertion of intraocular lens (02/12/2019), Laparoscopic repair of inguinal hernia (01/01/2018), Cystoscopy (05/23/2016), ESWL - Extracorporeal shockwave lithotripsy for renal calculus (03/22/2016), ESWL - Extracorporeal shockwave lithotripsy for renal calculus (12/22/2015), Cystoscopy (09/28/2015), Cervical spinal fusion, Cervical spinal fusion, Colonoscopy, Hammer toe operation, Hemorrhoidectomy. Medications Inpatient No active inpatient medications Home carvedilol 6.25 mg Tab, 6.25 mg= 1 tab(s), Oral, BID, 3 refills finasteride 5 mg Tab, 5 mg= 1 tab(s), Oral, Daily, 3 refills Flomax 0.4 mg Cap, 0.4 mg= 1 cap(s), Oral, BID, 3 refills Glucosamine Chondroitin, 1500mg/1200mg, Oral, Daily piperacillin predniSONE 5 mg Tab sildenafil 100 mg Tab, 100 mg= 1 tab(s), Oral, As Directed, PRN, 3 refills valsartan 80 mg Tab, 80 mg= 1 tab(s), Oral, Daily, 3 refills Vitamin C, 1000 mg, Oral, Daily Xarelto 15 mg (more content not included)... Normal [facility] Comment on above: Result Comment: Elec tronically Signed By: Micky Cueto DO\.br\Date and Time Signed: 09/27/24 22:45 EST ED Patient Summaryon 024 ED Patient Summary ED Patient Summary [place] [id number] Patient Discharge Instructions Person Information Name: MERVAT GRAYSON Age: 73 Years Arrival Date: 09/27/2024 11:26:26 Discharge Diagnosis: Abdominal pain Primary Care Physician: Lorenzo MARIN DO Provider Information Primary Provider: Micky Cueto DO Advanced Drupal Web Developer:None The exam and treatment you received in the Emergency Department were for an urgent problem and are not intended as complete care. It is important that you follow up with a doctor, nurse practitioner, or physician???s assistant boiler operator for ongoing care. If your symptoms become worse or you do not improve as expected and you are unable to reach your usual health care provider, you should return to the Emergency Department. We are available 24 hours a day. MERVAT GRAYSON has been given the following list of patient education materials, prescriptions and follow-up instructions: Follow-up Instructions: With: Address: When: Your surgeon In 3 days 09/30/2024 Comments: Call the office tomorrow to arrange for follow-up care In the event that this physician does not participate in your insurance network, please consult with your insurance company to find a nearby participating provider. Patient Education Materials: Abdominal Pain, Adult A MESSAGE TO ALL PATIENTS REGARDING OPIOIDS PRESCRIPTION OPIOIDS: WHAT YOU NEED TO KNOW Prescription opioids can be used to help relieve jrowykrk-kz-dtbgvk pain and are often prescribed following a [...] as well, even when taken as directed: ??? Tolerance???meaning you might need to take more of the medication for the same pain relief ??? Physical dependence???meaning you have symptoms of withdrawal when a medication is stopped ??? Increased sensitivity to pain ??? Constipation ??? Nausea, vomiting, and dry mouth ??? Sleepiness and dizziness ??? Confusion ??? Depression ??? Low levels of testosterone that can result in lower sex drive, energy, and strength ??? Itching and sweating RISKS ARE GREATER WITH: ??? History of drug misuse, substance use disorder, or overdose ??? Mental health conditions (such as depression or anxiety) ??? Sleep apnea ??? Older age (65 years and older) ??? Avoid alcohol while taking prescription opioids. Also, unless specifically advised by your health care provider, medications to avoid include: ??? Benzodiazepines (such as Xanax or Valium) ??? Muscle relaxants (such as Soma or Flexeril) ??? Hypnotics (such as Ambien or Lunesta) ??? Other prescription opioids KNOW YOUR OPTIONS Talk to your health care provider about ways to manage your pain that don???t involve prescription opioids. Some of these options may actually work better and have fewer risks and side effects. Options may include: ??? Pain relievers such as acetaminophen, ibuprofen, and naproxen ??? Some medication that are also used for depression or seizures ??? Physical therapy and exercise ??? Cognitive behavioral therapy, a psychological, goal-directed approach, in which patients learn how to modify physical, behavioral, and emotional triggers of pain and stress. IF YOU ARE PRESCRIBED OPIOIDS FOR PAIN: ??? Never take opioids in greater amounts or more often than prescribed. ??? Follow up with your primary health care provider. o Work together to create a plan on how to manage your pain. o Talk about ways to help manage your pain that don???t involve prescription opioids. o Talk about any and all concerns and side effects. ??? Help prevent misuse and abuse o Never sell or share prescription opioids. o Never use another person???s prescription opioids. ??? Store prescription opioids in a secure place and out of reach of others (this may include visitors, children, friends, and family). ??? Safely dispose of unused prescription opioids: Find your community drug take-back program or your pharmacy mail-back program, or flush them down the toilet, following guidance from the Food and Drug Administration (www.fda.gov/Drugs/Reso urcesForYou). ??? Visit www.cdc.gov/drugoverdos e to learn about the risks of opioids abuse and overdose. ??? If you believe you may be struggling with addiction, tell your health career technical education instructor and ask for guidanc (more content not included)... Normal [facility] Extra Blueon 09-27-2024 Tube Collected Plasma Yes Invalid Interpretation Code [facility] Comment on above: Performed By: #### 1 [id number] #### [facility] [address] [place] [address] HEMATOLOGYOrdered By: SYSTEM SYSTEM on 09-27-2024 Basophils/100 WBC (Bld) 1.7 % Normal 0.0 - 2.0 % Rem[facility]e Basophils/Leukocytes Auto (Bld) [Pure # fraction] 0.1 E9/L Normal 0.0 - 0.2 E9/L [facility] Eosinophils (Bld) [#/Vol] 0.3 E9/L Normal 0.0 - 0.5 E9/L [facility] Eosinophils/100 WBC (Bld) 4.9 % Normal 0.0 - 8.0 % [facility] Erythrocyte distribution width (RBC) [Ratio] 18.1 % High 10.9 - 14.2 % [facility] Hematocrit (Bld) [Volume fraction] 34.8 % Low 37.7 - 49.0 % [facility] Hemoglobin (Bld) [Mass/Vol] 11.5 g/dL Low 13.5 - 17.5 gm/dL [facility] Lymphocytes (Bld) [#/Vol] 1.0 E9/L Normal 1.0 - 4.0 E9/L [facility] Lymphocytes/100 WBC (Bld) 16.9 % Normal 14.0 - 50.0 % [facility] MCH (RBC) [Entitic mass] 30.7 pg Normal 27.0 - 34.0 pg [facility] MCHC (RBC) [Mass/Vol] 33.1 g/dL Normal 31.4 - 36.0 gm/dL [facility] MCV (RBC) [Entitic vol] 92.8 fL Normal 80.0 - 100.0 fL [facility] Monocytes (Bld) [#/Vol] 0.7 E9/L Normal 0.2 - 1.0 E9/L [facility] Monocytes/100 WBC (Bld) 12.0 % Normal 4.0 - 14.0 % [facility] Neutrophils (Bld) [#/Vol] 3.6 E9/L Normal 2.0 - 7.5 E9/L [facility] Neutrophils/100 WBC (Bld) 64.5 % Normal 36.0 - 75.0 % [facility] Comment on above: Result Comment: Shikha pheral smear review performed. Platelet 260.0 E9/L Normal 150.0 - 500.0 E9/L [facility] Platelet mean volume (Bld) [Entitic vol] 8.1 fL Normal 6.4 - 10.8 fL [facility] RBC (Bld) [#/Vol] 3.8 E12/L Low 4.3 - 5.9 E12/L [facility] WBC corrected for nucl RBC Auto (Bld) [#/Vol] 5.6 E9/L Normal 4.0 - 11.0 E9/L [facility] Hep Func Panelon 09-27-2024 Albumin [Mass/Vol] 3.3 g/dL Normal 3.3-5.0 [facility] Comment on above: Performed By: #### 2 [id number] #### [facility] [address] [place] [address] Albumin/Globulin (S) [Mass conc ratio] 1.3 Normal 1.1-2.2 [facility] Comment on above: Performed By: #### 2 [id number] #### [facility] [address] [place] [address] ALP [Catalytic activity/Vol] 83 Int._Unit/L Normal 21-98 [facility] Comment on above: Performed By: #### 2 [id number] #### [facility] [address] [place] [address] ALT No additional P-5'-P [Catalytic activity/Vol] 10 Int._Unit/L Normal 6-46 [facility] Comment on above: Performed By: #### 2 [id number] #### [facility] [address] [place] [address] AST [Catalytic activity/Vol] 15 Int._Unit/L Normal 5-43 [facility] Comment on above: Performed By: #### 2 [id number] #### [facility] [address] [place] [address] Bilirubin [Mass/Vol] 0.5 mg/dL Normal 0.0-1.1 [facility] Comment on above: Performed By: #### 2 [id number] #### [facility] [address] [place] [address] Bilirubin.direct [Mass/Vol] 0.1 mg/dL Normal 0.0-0.4 [facility] Comment on above: Performed By: #### 2 [id number] #### [facility] [address] [place] [address] Bilirubin.indirect [Mass or moles/Vol] 0.4 mg/dL Normal 0.1-0.9 [facility] Comment on above: Performed By: #### 2 [id number] #### [facility] [address] [place] [address] Globulin (S) [Mass/Vol] 2.5 g/dL Normal 1.4-4.0 [facility] Comment on above: Performed By: #### 2 [id number] #### [facility] [address] [place] [address] Protein [Mass/Vol] 5.8 g/dL Low 6.0-7.8 [facility] Comment on above: Performed By: #### 2 [id number] #### [facility] [address] [place] [address] UA with Cult Rflxon 09-27-20 24 Bilirubin Ql (U) Negative Normal Negative [facility] Comment on above: Performed By: #### 4 [id number] #### [facility] [address] [place] [address] Clarity (U) Clear Normal Clear [facility] Comment on above: Performed By: #### 4 [id number] #### [facility] [address] [place] [address] Color (U) Light-Yellow Normal Yellow [facility] Comment on above: Result Comment: Micr oscopic readings are only performed on those samples that meet specific criteria set forth by [facility]. Performed By: #### 4 [id number] #### [facility] [address] [place] [address] Glucose Ql (U) Negative Normal Negative [facility] Comment on above: Performed By: #### 4 [id number] #### [facility] [address] [place] [address] Hemoglobin Auto test strip (U) [Mass/Vol] Negative Normal Negative [facility] Comment on above: Performed By: #### 4 [id number] #### [facility] [address] [place] [address] Ketones Auto test strip Ql (U) Negative Normal Negative [facility] Comment on above: Performed By: #### 4 [id number] #### [facility] [address] [place] [address] Leukocyte esterase Auto test strip Ql (U) Negative Normal Negative [facility] Comment on above: Performed By: #### 4 [id number] #### [facility] [address] [place] [address] Nitrite Auto test strip Ql (U) Negative Normal Negative [facility] Comment on above: Performed By: #### 4 [id number] #### [facility] [address] [place] [address] pH (U) 6.5 [pH] Invalid Interpretation Code 5.0-9.0 [facility] Comment on above: Performed By: #### 4 [id number] #### [facility] [address] [place] [address] Protein Ql (U) Negative Normal Negative [facility] Comment on above: Performed By: #### 4 [id number] #### [facility] [address] [place] [address] Specific gravity (U) [Rel density] 1.031 Invalid Interpretation Code 1.005-1.030 [facility] Comment on above: Performed By: #### 4 [id number] #### [facility] [address] [place] [address] Urobilinogen (U) [Mass/Vol] Negative Normal Negative [facility] Comment on above: Performed By: #### 4 [id number] #### [facility] [address] [place] [address] Type of Urine collection method Clean Catch Normal [facility] Comment on above: Performed By: #### 4 [id number] #### [facility] [address] [place] [address] URINALYSISOrdered By: SYSTEM SYSTEM on 09-27-2024 Bilirubin Ql (U) Negative Normal Negativemg/ dL FT UA Auto SS Clarity (U) Clear (09/27/24 2:30 PM) Normal Clear FT UA Auto SS Color (U) Light-Yellow 1 (09/27/24 2:30 PM) Normal Yellow [facility] Auto SS Comment on above: Interpretive Data: M icroscopic readings are only performed on those samples that meet specific criteria set forth by [facility]. Glucose Ql (U) Negative Normal Negativemg/ dL FT UA Auto SS Hemoglobin Auto test strip (U) [Mass/Vol] Negative Normal Negativemg/ dL FT UA Auto SS Ketones Auto test strip Ql (U) Negative Normal Negativemg/ dL FT UA Auto SS Leukocyte esterase Auto test strip Ql (U) Negative Normal NegativeLeu /uL FT UA Auto SS Nitrite Auto test strip Ql (U) Negative Normal Negativemg/ dL FT UA Auto SS pH (U) 6.5 *NA* (09/27/24 2:30 PM) Invalid Interpretation Code 5.0 - 9.0 FT UA Auto SS Protein Ql (U) Negative Normal Negativemg/ dL [facility] UA Auto SS Specific gravity (U) [Rel density] 1.031 *NA* (09/27/24 2:30 PM) Invalid Interpretation Code 1.005 - 1.030 [facility] UA Auto SS Urobilinogen (U) [Mass/Vol] Negative Normal Negativemg/ dL [facility] UA Auto SS URINALYSISOrdered By: Micky Cueto on 09-27-2024 UA Spec Desc Clean Catch (09/27/24 2:30 PM) Normal [facility] UA Auto SS eGFRon 09-27-2024 eGFR 80 mL/min/1.73 m2 Normal >=59 [facility] Comment on above: Performed By: #### 1 [id number] #### [facility] [address] [place] [address] CNOVon 09-16-2024 CNOV Normal [facility] CNPNon 09-15-2024 CNPN Normal [facility] CNPNon 09-14-2024 CNPN Normal [facility] Heart and Vascular Office/Cl inic Noteon 09-10-2024 Heart and Vascular Office/Clinic Note Heart and Vascular Office/Clinic Note Chief Complaint 6 mo f/u non ischemic cardiomyopathy History of Present Illness Patient is a 73-year-old male with history of nonischemic cardiomyopathy, BPH, RA, history of rectal cancer. Echo 12/2019 showed low normal EF of 50-55%, normal LV and RV and no significant valvular disease. Patient comes in for 6-month follow-up today. At last visit, I saw patient which time he was continued on current medications. Patient reports that he has been doing well from a heart standpoint. However, he states that at the beginning of 07/2024 he had a perforated bowel and had to have about 1 foot of his large intestine removed. This was following a colonoscopy which showed that he did not have any recurrence of cancer. Patient states that he has been recovering well. Throughout that whole time, no one had any concerns for his heart and patient did not either. Blood pressure is well-controlled in the office today and patient is currently taking carvedilol 6.25 mg twice daily and valsartan 80 mg daily. These medications did help his pumping function as he was at about 45-50% in 2020 which improved to 50-55% in 2022. Patient inquires about discontinuing medications, but informed him them to be afraid that his EF will drop back down if we discontinue the medications and he is agreeable to continue with them at this time. Patient denies chest pain, shortness of breath, heart palpitations, dizziness/lightheadedne ss, and swelling in lower legs. NOTE FROM 01/28/2024: Presents today for 3-month follow-up. Hydrochlorothiazide was stopped at last visit due to some orthostatic symptoms and low blood pressure. Patient has been doing better since stopping medicine. No further orthostasis and blood pressure still well-controlled. Patient denies chest pain, shortness of breath, lightheadedness. Mild swelling in the legs at times. Patient states he is doing well, no complaints today. Review of Systems PHQ Score Initial Depression Screen Score: 0 SCORE ROS - Provider Constitutional: no fever, no chills, no sweats, no weakness Respiratory: no shortness of breath, no cough Cardiovascular: no chest pain Neuro: no dizziness. no loss of consciousness Physical Exam Vitals & Measurements HR: 78(Peripheral) RR: 16 BP: 122/84 SpO2: 98% HT: 74 in HT: 188 cm WT: 104 kg WT: 229.28 lb BMI: 29.43 General: alert, no acute distress Cardiovascular: regular rate and rhythm, no murmur normal peripheral perfusion Respiratory: Lungs CTAB, respirations non labored Extremities: no edema left lower extremity. no edema right lower extremity Neurological: oriented x 4, LOC appropriate for age, speech normal Skin: Warm, dry, intact- no rash or concerning lesions Cardiac Diagnostics (01/10/2023 15:02 EDT Echo Transthoracic Complete) Interpretation Summary Normal LV size. Low normal LV systolic function, EF 50-55%. Normal RV. No significant valve disease. Normal estimated PA pressure. [1] (02/21/2021 09:52 EDT Echo Transthoracic Complete) SUMMARY/CONCLUSION: 1. Normal left ventricular size with mild global LV dysfunction with an ejection fraction around 45-50%. 2. Stage I diastolic dysfunction. 3. Trivial tricuspid regurgitation with normal RVSP of 24 mm Hg. 4. In comparison to echocardiogram dated 07/17/2019 no appreciable change is noted. [1] Assessment/Plan 1. Non-ischemic cardiomyopathy (I42.8: Other cardiomyopathies) Patient has history of nonischemic cardiomyopathy. Currently well-controlled on valsartan 80 mg and carvedilol 6.25 mg twice daily and his EF to monitor with his medications.. Patient does not currently have any heart complaints at this time. Patient does labs quarterly through [facility]. Want to repeat echo in 12/2024. Continue with current medications at this time Ordered: Echo Transthoracic Complete Follow-up with me in 6 months Portions of this record may have been created with voice recognition artificial intelligence software, specifically [employer], TapBookAuthor and or Storm Player. Substitutions may have occurred due to the inherent limitations of voice recognition and artificial intelligence software. Follow-up No qualifying data available Problem List/Past Medical History Ongoing BMI 31.0-31.9,adult BPH with urinary obstruction Cervical spinal stenosis Erectile dysfunction Kidney stones Neck pain without injury Non-ischemic cardiomyopathy Prostate cancer screening RA - Rheumatoid arthritis Rectal cancer Smoker Tobacco non-user Historical No qualifying data Procedure/Surgical History Urodynamics (08/22/2023), Cystoscopy (06/04/2023), Sigmoidoscopy (08/20/2022), Cataract extraction and insertion of intraocular lens (02/24/2019), Cataract extraction and insertion of intraocular lens (02/12/2019), Laparoscopic repair of inguinal hernia (01/01/2018), Cystoscopy (05/23/2016), ESWL - Extracorporeal shockwave lithotripsy for renal calculus (03/22/20 (more content not included)... Normal [facility] Comment on above: Result Comment: Elec tronically Signed By: Pato Peña PA-C\.br\Date and Time Signed: 09/10/24 08:33 EST BRIEF OP NOTon 09-08-2024 BRIEF OP NOT HNO ID: [id number] Author: MERVAT SOLORZANO MD Service: Radiology Author Type: Physician Type: Brief Op Note Filed: 09/08/2024 13:31 Note Text: RADIOLOGY BRIEF PROCEDURE NOTE LOG ID: [id number] Surgery/Procedure Date: 09/08/2024 Incision/Procedure Start Time: 1:02 PM Incision Close/Procedure End Time: 1:21 PM Informed Consent obtained under separate note. ATTENDING RADIOLOGIST: Interventional: Dr. Mervat Solorzano RAIL OPERATIONS CONTROLLER: None PRE-PROCEDURAL DIAGNOSIS: Pelvic fluid collection/abscess ANESTHESIA: Procedural Sedation PROCEDURE: Existing drainage catheter was removed over a wire. A Kumpe catheter and wire maneuvered into the small residual pelvic collection, which appeared smaller than on the previous contrast injection of 4 days ago. An 8 Czech drainage catheter was placed with the tip in the small pelvic collection and the side holes laid out along the tract. The collection in the pelvis was too small to accommodate a reformed Temple loop. POST-PROCEDURAL DIAGNOSIS: Same COMPLICATIONS: None ESTIMATED BLOOD LOSS: Minimal INDWELLING DEVICES: 8 Czech APD catheter SPECIMENS: None DISPOSITION: Patient hemodynamically stable, alert and awake. Patient transferred to Radiology Recovery/PACU for monitoring prior to anticipated discharge home. FULL REPORT TO FOLLOW (under the Imaging tab in the Chart Review section) SIGNATURE: Mervat Solorzano MD PATIENT NAME: Mervat Grayson DATE: September 08, 2024 TIME: 1:25 PM CONTACT #: [phone] Normal [facility] CBC W Auto Differential pane l (Bld)on 09-08-2024 Basophils (Bld) [#/Vol] 0.06 10*3/uL [facility] Basophils/100 WBC (Bld) 0.9 % [facility] Differential cell count method Nom (Bld) Auto [facility] Eosinophils (Bld) [#/Vol] 0.37 10*3/uL [facility] Eosinophils/100 WBC (Bld) 5.6 % [facility] Erythrocyte distribution width (RBC) [Ratio] 18.3 % High 11.5 - 15.0 % [facility] Hematocrit (Bld) [Volume fraction] 34.6 % Low 39.0 - 51.0 % [facility] Hemoglobin (Bld) [Mass/Vol] 11.0 g/dL Low 13.0 - 17.0 g/dL [facility] Immature granulocytes (Bld) [#/Vol] 0.03 10*3/uL [facility] Immature granulocytes/100 WBC (Bld) 0.5 % [facility] Interpretation and review of laboratory results Abnormal [facility] Lymphocytes (Bld) [#/Vol] 1.21 10*3/uL [facility] Lymphocytes/100 WBC (Bld) 18.4 % [facility] MCH (RBC) [Entitic mass] 31.0 pg 26.0 - 34.0 pg [facility] MCHC (RBC) [Mass/Vol] 31.8 g/dL 30.5 - 36.0 g/dL [facility] MCV (RBC) [Entitic vol] 97.5 fL 80.0 - 100.0 fL [facility] Monocytes (Bld) [#/Vol] 0.73 10*3/uL [facility] Monocytes/100 WBC (Bld) 11.1 % [facility] Neutrophils (Bld) [#/Vol] 4.17 10*3/uL [facility] Neutrophils/100 WBC (Bld) 63.5 % [facility] Nucleated RBC (Bld) [#/Vol] [facility] Nucleated RBC/100 WBC (Bld) [Ratio] 0.0 % /100 WBC [facility] Platelet mean volume (Bld) [Entitic vol] 9.6 fL 9.0 - 12.7 fL [facility] Platelets (Bld) [#/Vol] 225 10*3/uL [facility] RBC (Bld) [#/Vol] 3.55 10*6/uL Low 4.20 - 6.0 0 m/uL [facility] WBC (Bld) [#/Vol] 6.57 10*3/uL [facility] Basophils (Bld) [#/Vol] 0.06 10*3/uL Normal <0.11 [facility] Comment on above: Order Comment: Speci men Type: BLOOD SPECIMENOrdering Facility: [facility] Address: [address] [place] [address] Performed By: #### 5 [id number] ####[facility] LABCLIA [id number] [place] [address] Basophils/100 WBC (Bld) 0.9 % Normal [facility] Comment on above: Order Comment: Speci men Type: BLOOD SPECIMENOrdering Facility: [facility] Address: [address] [place] [address] Performed By: #### 5 [id number] ####[facility] LABCLIA [id number] [place] [address] Differential cell count method Nom (Bld) Auto Normal [facility] Comment on above: Order Comment: Speci men Type: BLOOD SPECIMENOrdering Facility: [facility] Address: [address] [place] [address] Performed By: #### 5 [id number] ####[facility] LABCLIA [id number] [place] [address] Eosinophils (Bld) [#/Vol] 0.37 10*3/uL Normal <0.46 [facility] Comment on above: Order Comment: Speci men Type: BLOOD SPECIMENOrdering Facility: [facility] Address: [address] [place] [address] Performed By: #### 5 7021-8 ####[facility] LABCLIA [id number] [place] [address] Eosinophils/100 WBC (Bld) 5.6 % Normal [facility] Comment on above: Order Comment: Speci men Type: BLOOD SPECIMENOrdering Facility: [facility] Address: [address] [place] [address] Performed By: #### 5 7021-8 ####[facility] LABCLIA [id number] [place] [address] Erythrocyte distribution width (RBC) [Ratio] 18.3 % High 11.5-15.0 [facility] Comment on above: Order Comment: Speci men Type: BLOOD SPECIMENOrdering Facility: [facility] Address: [address] [place] [address] Performed By: #### 5 7021-8 ####[facility] LABIA [id number] [place] [address] Hematocrit (Bld) [Volume fraction] 34.6 % Low 39.0-51.0 [facility] Comment on above: Order Comment: Speci men Type: BLOOD SPECIMENOrdering Facility: [facility] Address: [address] [place] [address] Performed By: #### 5 7021-8 ####[facility] LABIA [id number] [place] [address] Hemoglobin (Bld) [Mass/Vol] 11.0 g/dL Low 13.0-17.0 [facility] Comment on above: Order Comment: Speci men Type: BLOOD SPECIMENOrdering Facility: [facility] Address: [address] [place] [address] Performed By: #### 5 7021-8 ####[facility] LABIA [id number] [place] [address] Immature granulocytes (Bld) [#/Vol] 0.03 10*3/uL Normal <0.10 [facility] Comment on above: Order Comment: Speci men Type: BLOOD SPECIMENOrdering Facility: [facility] Address: [address] [place] [address] Performed By: #### 5 7021-8 ####[facility] LABCLIA [id number] [place] [address] Immature granulocytes/100 WBC (Bld) 0.5 % Normal [facility] Comment on above: Order Comment: Speci men Type: BLOOD SPECIMENOrdering Facility: [facility] Address: [address] [place] [address] Performed By: #### 5 7021-8 ####[facility] LABCLIA [id number] [place] [address] Lymphocytes (Bld) [#/Vol] 1.21 10*3/uL Normal 1.00-4.00 [facility] Comment on above: Order Comment: Speci men Type: BLOOD SPECIMENOrdering Facility: [facility] Address: [address] [place] [address] Performed By: #### 5 7021-8 ####[facility] LABCLIA [id number] [place] [address] Lymphocytes/100 WBC (Bld) 18.4 % Normal [facility] Comment on above: Order Comment: Speci men Type: BLOOD SPECIMENOrdering Facility: [facility] Address: [address] [place] [address] Performed By: #### 5 7021-8 ####[facility] LABCLIA [id number] [place] [address] MCH (RBC) [Entitic mass] 31.0 pg Normal 26.0-34.0 [facility] Comment on above: Order Comment: Speci men Type: BLOOD SPECIMENOrdering Facility: [facility] Address: [address] [place] [address] Performed By: #### 5 7021-8 ####[facility] LABCLIA [id number] [place] [address] MCHC (RBC) [Mass/Vol] 31.8 g/dL Normal 30.5-36.0 [place] Comment on above: Order Comment: Speci men Type: BLOOD SPECIMENOrdering Facility: [facility] Address: [address] [place] [address] Performed By: #### 5 7021-8 ####[facility] LABCLIA [id number] [place] [address] MCV (RBC) [Entitic vol] 97.5 fL Normal 80.0-100.0 [facility] Comment on above: Order Comment: Speci men Type: BLOOD SPECIMENOrdering Facility: [facility] Address: [address] [place] [address] Performed By: #### 5 7021-8 ####[facility] LABCLIA [id number] [place] [address] Monocytes (Bld) [#/Vol] 0.73 10*3/uL Normal <0.87 [facility] Comment on above: Order Comment: Speci men Type: BLOOD SPECIMENOrdering Facility: [facility] Address: [address] [place] [address] Performed By: #### 5 7021-8 ####[facility] LABCLIA [id number] [place] [address] Monocytes/100 WBC (Bld) 11.1 % Normal [facility] Comment on above: Order Comment: Speci men Type: BLOOD SPECIMENOrdering Facility: [facility] Address: [address] [place] [address] Performed By: #### 5 7021-8 ####[facility] LABCLIA [id number] [place] [address] Neutrophils (Bld) [#/Vol] 4.17 10*3/uL Normal 1.45-7.50 [facility] Comment on above: Order Comment: Speci men Type: BLOOD SPECIMENOrdering Facility: [facility] Address: [address] [place] [address] Performed By: #### 5 7021-8 ####[facility] LABCLIA [id number] [place] [address] Neutrophils/100 WBC (Bld) 63.5 % Normal [facility] Comment on above: Order Comment: Speci men Type: BLOOD SPECIMENOrdering Facility: [facility] Address: [address] [place] [address] Performed By: #### 5 7021-8 ####[facility] LABCLIA [id number] [place] [address] Nucleated RBC (Bld) [#/Vol] 10*3/uL Normal <0.01 [facility] Comment on above: Order Comment: Speci men Type: BLOOD SPECIMENOrdering Facility: [facility] Address: [address] [place] [address] Performed By: #### 5 7021-8 ####[facility] LABCLIA [id number] [place] [address] Nucleated RBC/100 WBC (Bld) [Ratio] 0.0 /100 WBC Normal [facility] Comment on above: Order Comment: Speci men Type: BLOOD SPECIMENOrdering Facility: [facility] Address: [address] [place] [address] Performed By: #### 5 7021-8 ####[facility] LABCLIA [id number] [place] [address] Platelet mean volume (Bld) [Entitic vol] 9.6 fL Normal 9.0-12.7 [facility] Comment on above: Order Comment: Speci men Type: BLOOD SPECIMENOrdering Facility: [facility] Address: [address] [place] [address] Performed By: #### 5 7021-8 ####[facility] LABCLIA [id number] [place] [address] Platelets (Bld) [#/Vol] 225 10*3/uL Normal 150-400 [facility] Comment on above: Order Comment: Speci men Type: BLOOD SPECIMENOrdering Facility: [facility] Address: [address] [place], [place] [id number] Performed By: #### 5 7021-8 ####[facility] LABIA [id number] [place] [address] RBC (Bld) [#/Vol] 3.55 10*6/uL Low 4.20-6.00 [facility] Comment on above: Order Comment: Speci men Type: BLOOD SPECIMENOrdering Facility: [facility] Address: [address] [place], [place] [id number] Performed By: #### 5 7021-8 ####[facility] LABIA [id number] [place] [address] WBC (Bld) [#/Vol] 6.57 10*3/uL Normal 3.70-11.00 [facility] Comment on above: Order Comment: Speci men Type: BLOOD SPECIMENOrdering Facility: [facility] Address: [address] [place] [address] Performed By: #### 5 7021-8 ####[facility] LABIA [id number] [place] [address] CNOVSPon 09-08-2024 CNOVSP Normal [facility] metabolic 2000 panelOrdered By: Ti Dooley on 09-08-2024 Albumin [Mass/Vol] 3.6 g/dL Low 3.9 - 4.9 g/dL [facility] ALP [Catalytic activity/Vol] 86 U/L 38 - 113 U/L [facility] ALT [Catalytic activity/Vol] 11 U/L 10 - 54 U/L [facility] Anion gap [Moles/Vol] 10 mmol/L 8 - 15 mmol/L [facility] AST [Catalytic activity/Vol] 13 U/L Low 14 - 40 U/L [facility] Bilirubin [Mass/Vol] 0.4 mg/dL 0.2 - 1 .3 mg/dL [facility] Calcium [Mass/Vol] 9.2 mg/dL 8.5 - 10. 2 mg/dL [facility] Chloride [Moles/Vol] 106 mmol/L 98 - 10 7 mmol/L [facility] CO2 [Moles/Vol] 27 mmol/L 22 - 30 mmol/L [facility] Creatinine [Mass/Vol] 1.20 mg/dL 0.73 - 1.22 mg/dL [facility] GFR/1.73 sq M.predicted among non-blacks MDRD (S/P/Bld) [Vol rate/Area] 65 mL/min/{1.73_m2} - PINF [facility] Comment on above: Estimated Glomerular Filtration Rate (eGFR) is calculated using the 2020 CKD-EPI creatinine equation. This equation utilizes serum creatinine, sex, and age as parameters. The creatinine assay has traceable calibration to isotope dilution-mass spectrometry. Refer to KDIGO guidelines for clinical interpretation. In patients with unstable renal function, e.g. those with acute kidney injury, the eGFR may not accurately reflect actual GFR. Glucose [Mass/Vol] 87 mg/dL 74 - 99 mg/dL [facility] Comment on above: The [place] [employer] (ADA) provides guidance for cutoff values for fasting glucose and random glucose. The ADA defines fasting as no caloric intake for at least 8 hours. Fasting plasma glucose results between 100 to 125 mg/dL indicate increased risk for diabetes (prediabetes). Fasting plasma glucose results greater than or equal to 126 mg/dL meet the criteria for diagnosis of diabetes. In the absence of unequivocal hyperglycemia, results should be confirmed by repeat testing. In a patient with classic symptoms of hyperglycemia or hyperglycemic crisis, random plasma glucose results greater than or equal to 200 mg/dL meet the criteria for diagnosis of diabetes. Reference: Standards of Medical Care in Diabetes 2016, [place] [employer]. Diabetes Care. 2016.39(Suppl 1). Interpretation and review of laboratory results Abnormal [facility] Potassium [Moles/Vol] 3.5 mmol/L Low 3.7 - 5.1 mmol/L [facility] Protein [Mass/Vol] 6.0 g/dL Low 6.3 - 8.0 g/dL [facility] Sodium [Moles/Vol] 143 mmol/L 136 - 144 mmol/L [facility] Urea nitrogen [Mass/Vol] 13 mg/dL 9 - 24 mg/dL [facility] Comprehensive metabolic 2000 panelon 09-08-2024 Albumin [Mass/Vol] 3.6 g/dL Low 3.9-4.9 [facility] Comment on above: Order Comment: Speci men Type: BLOOD SPECIMENOrdering Facility: [facility] Address: [address] [place] [address] Performed By: #### 2 4323-8 ####[facility] LABCLIA [id number] [place] [address] ALP [Catalytic activity/Vol] 86 U/L Normal 38-113 [facility] Comment on above: Order Comment: Speci men Type: BLOOD SPECIMENOrdering Facility: [facility] Address: [address] [place] [address] Performed By: #### 2 4323-8 ####[facility] LABCLIA [id number] [place] [address] ALT [Catalytic activity/Vol] 11 U/L Normal 10-54 [facility] Comment on above: Order Comment: Speci men Type: BLOOD SPECIMENOrdering Facility: [facility] Address: [address] [place] [address] Performed By: #### 2 4323-8 ####[facility] LABCLIA [id number] [place] [address] Anion gap [Moles/Vol] 10 mmol/L Normal 8-15 [place] Comment on above: Order Comment: Speci men Type: BLOOD SPECIMENOrdering Facility: [facility] Address: [address] [place] [address] Performed By: #### 2 4323-8 ####[facility] LABCLIA [id number] [place] [address] AST [Catalytic activity/Vol] 13 U/L Low 14-40 [facility] Comment on above: Order Comment: Speci men Type: BLOOD SPECIMENOrdering Facility: [facility] Address: [address] [place] [address] Performed By: #### 2 4323-8 ####[facility] LABCLIA [id number] [place] [address] Bilirubin [Mass/Vol] 0.4 mg/dL Normal 0.2-1.3 [facility] Comment on above: Order Comment: Speci men Type: BLOOD SPECIMENOrdering Facility: [facility] Address: [address] [place] [address] Performed By: #### 2 4323-8 ####[facility] LABCLIA [id number] [place] [address] Calcium [Mass/Vol] 9.2 mg/dL Normal 8.5-10.2 [facility] Comment on above: Order Comment: Speci men Type: BLOOD SPECIMENOrdering Facility: [facility] Address: [address] [place] [address] Performed By: #### 2 4323-8 ####[facility] LABCLIA [id number] [place] [address] Chloride [Moles/Vol] 106 mmol/L Normal 98-107 [facility] Comment on above: Order Comment: Speci men Type: BLOOD SPECIMENOrdering Facility: [facility] Address: [address] [place] [address] Performed By: #### 2 4323-8 ####[facility] LABCLIA [id number] [place] [address] CO2 [Moles/Vol] 27 mmol/L Normal 22-30 [facility] Comment on above: Order Comment: Speci men Type: BLOOD SPECIMENOrdering Facility: [facility] Address: [address] [place] [address] Performed By: #### 2 4323-8 ####[facility] LABCLIA [id number] [place] [address] Creatinine [Mass/Vol] 1.20 mg/dL Normal 0.73-1.22 [place] Comment on above: Order Comment: Speci men Type: BLOOD SPECIMENOrdering Facility: [facility] Address: [address] [place] [address] Performed By: #### 2 4323-8 ####[facility] LABCLIA [id number] [place] [address] Creatinine and Glomerular filtration rate.predicted panel (S/P/Bld) 65 mL/min/1.73m??? Normal >=60 [facility] Comment on above: Order Comment: Speci todd Type: BLOOD SPECIMENOrdering Facility: [facility] Address: [address] [place] [address] Result Comment: Rebekah mated Glomerular Filtration Rate [...] actual GFR. Performed By: #### 2 4323-8 ####[facility] LABCLIA [id number] [place] [address] Glucose [Mass/Vol] 87 mg/dL Normal 74-99 [facility] Comment on above: Order Comment: Nazario brooks Type: BLOOD SPECIMENOrdering Facility: [facility] Address: [address] [place] [address] Result Comment: The [place] [employer] (ADA) provides guidance for cutoff [...] Standards of Medical Care in Diabetes 2016, [place] [employer]. Diabetes Care. 2016.39(Suppl 1). Performed By: #### 2 4323-8 ####[facility] LABCLIA [id number] [place] [address] Potassium [Moles/Vol] 3.5 mmol/L Low 3.7-5.1 [place] Comment on above: Order Comment: Speci men Type: BLOOD SPECIMENOrdering Facility: [facility] Address: [address] [place] [address] Performed By: #### 2 4323-8 ####[facility] LABCLIA [id number] [place] [address] Protein [Mass/Vol] 6.0 g/dL Low 6.3-8.0 [facility] Comment on above: Order Comment: Speci men Type: BLOOD SPECIMENOrdering Facility: [facility] Address: [address] [place] [address] Performed By: #### 2 4323-8 ####[facility] LABCLIA [id number] [place] [address] Sodium [Moles/Vol] 143 mmol/L Normal 136-144 [facility] Comment on above: Order Comment: Speci men Type: BLOOD SPECIMENOrdering Facility: [facility] Address: [address] [place] [address] Performed By: #### 2 4323-8 ####[facility] LABCLIA [id number] [place] [address] Urea nitrogen [Mass/Vol] 13 mg/dL Normal 9-24 [facility] Comment on above: Order Comment: Speci men Type: BLOOD SPECIMENOrdering Facility: [facility] Address: [address] [place] [address] Performed By: #### 2 4323-8 ####[facility] LABCLIA [id number] [place] [address] IR ABSCESS DRAIN/SPEC COLLEC Ton 09-08-2024 IR ABSCESS DRAIN/SPEC COLLECT * * *Final Report* * * DATE OF EXAM: Sep 08 2024 1:21PM A 7368 - IR ABSCESS DRAIN/SPEC COLLECT / PROCEDURE REASON: Abscess [L02.91] * * * * Physician Interpretation * * * * PROCEDURE: EXCHANGE AND REPOSITION OF PELVIC DRAIN Procedural Personnel Attending physician(s): Mervat Solorzano M.D. Assistants: None Pre-procedure diagnosis: Postoperative pelvic fluid collection/abscess Post-procedure diagnosis: Same Indication: Residual pelvic fluid collection Additional clinical history: Patient developed pelvic fluid collections after a laparoscopic right colectomy on 07/22/2024 and bilateral pelvic drains were placed. The left-sided drain has been removed. Injection of the right-sided drain 4 days ago demonstrated a residual pelvic fluid collection approximately 5 cm below the Temple loop of the drainage catheter. The request is to exchange the drainage catheter and reposition reposition it into the residual fluid collection. _ PROCEDURE DETAILS: Pre-procedure Consent: Informed consent was obtained and a signed consent form was entered into [employer]BOX. Premedicated for contrast allergy: N/A Shikha-procedure discussions: The appropriate elements of the pre-procedure discussion, safety check list and sign-in were performed. Start of procedure: 13:02 End of procedure: 13:21 Patient position: Supine Preparation: The site was prepared and draped using all elements of maximal sterile barrier technique including sterile gloves, sterile gown, cap, mask, large sterile sheet, hand hygiene and cutaneous antisepsis. Antibiotics: Already on appropriate antibiotic(s) Antibiotic infusion start time: N/A Contrast Contrast agent: OMNIPAQUE 240 Contrast volume (mL): 10 Image Guidance Fluoroscopic guidance. FLUOROSCOPIC RADIATION SUMMARY: Plane A, Air Kerma: 42.4 mGy Dose Area Product (DAP): 644.10 uGym2 Fluoro Time: 4:30 min:sec Radiation dose exceed 5 Gy: No If radiation dose exceeded 5 Gy, was counseling and instructional brochure provided: N/A Anesthesia/sedation Level of anesthesia/sedation: Moderate sedation (conscious sedation) Anesthesia/sedation administered by: Independent trained observer under attending supervision with continuous monitoring of the patient?s level of consciousness and physiologic status Total intra-service sedation time (minutes): 24 minutes Local anesthesia: 2% lidocaine Exchange and reposition of right lower quadrant drainage catheter Local anesthesia was administered. Initial injection of contrast material into the existing 10 Czech catheter did demonstrate tracking of contrast from the Temple loop inferiorly into a small collection in the pelvis. The collection appeared smaller than on the previous tube injection of 09/04/2024. The existing catheter was exchanged over a wire for a 5 Czech Kumpe catheter. In conjunction with a glide wire, the Kumpe catheter was maneuvered under fluoroscopy inferiorly within the tract to the small pelvic fluid collection. The Kumpe catheter was then exchanged over an Amplatz wire for an 8 Czech drainage catheter. The collection itself was too small to perform the Temple loop, so it was positioned with the tip in the collection and the sideholes ablated out along the tract. The catheter was secured to the skin with 0 Prolene suture and a sterile dressing was applied. New drain: [employer] 8 Czech all-purpose drainage catheter Number and Type of Removed Specimens: 0: N/A Estimated blood loss (mL): Trace Standardized report: [id number] e_v3 Complications There were no immediate complications and no other complications. Conclusion The patient was comfortable and was transferred to the recovery room in stable condition. The procedure was performed by the: attending radiologist, without an assistant boiler operator. The attending radiologist performed the following procedural activities: Entire procedure IMPRESSION: Existing drainage catheter was removed over a wire. A Kumpe catheter and wire maneuvered into the small residual pelvic collection, which appeared smaller than on the previous contrast injection of 4 days ago. An 8 Czech drainage catheter was placed with the tip in the small pelvic collection and the side holes laid out along the tract. The collection in the pelvis was too small to accommodate forming a Temple loop. PLAN: Flush catheter every other day with 2-3 mL of sterile normal saline to maintain patency. Attestation Signer name: Mervat Solorzano I attest that I was present for the entire procedure. I reviewed the stored images and agree with the report as written. Services Manager: PSCB Transcribe Date/Time: Sep 08 2024 3:04P Dictated by : MERVAT SOLORZANO MD This examination was interpreted and the report reviewed and electronically signed by: MERVAT SOLORZANO MD on No (more content not included)... [facility] IR ABSCESS/CYST DRAIN EXCHAN [facility] 09-08-2024 IR ABSCESS/CYST DRAIN EXCHANGE * * *Final Report* * * DATE OF EXAM: Sep 08 2024 1:21PM [facility] 7377 - IR ABSCESS/CYST DRAIN EXCHANGE / PROCEDURE REASON: Abscess [L02.91] * * * * Physician Interpretation * * * * PROCEDURE: EXCHANGE AND REPOSITION OF PELVIC DRAIN Procedural Personnel Attending physician(s): Mervat Solorzano M.D. Assistants: None Pre-procedure diagnosis: Postoperative pelvic fluid collection/abscess Post-procedure diagnosis: Same Indication: Residual pelvic fluid collection Additional clinical history: Patient developed pelvic fluid collections after a laparoscopic right colectomy on 07/22/2024 and bilateral pelvic drains were placed. The left-sided drain has been removed. Injection of the right-sided drain 4 days ago demonstrated a residual pelvic fluid collection approximately 5 cm below the Temple loop of the drainage catheter. The request is to exchange the drainage catheter and reposition reposition it into the residual fluid collection. _ PROCEDURE DETAILS: Pre-procedure Consent: Informed consent was obtained and a signed consent form was entered into [employer]BOX. Premedicated for contrast allergy: N/A Shikha-procedure discussions: The appropriate elements of the pre-procedure discussion, safety check list and sign-in were performed. Start of procedure: 13:02 End of procedure: 13:21 Patient position: Supine Preparation: The site was prepared and draped using all elements of maximal sterile barrier technique including sterile gloves, sterile gown, cap, mask, large sterile sheet, hand hygiene and cutaneous antisepsis. Antibiotics: Already on appropriate antibiotic(s) Antibiotic infusion start time: N/A Contrast Contrast agent: OMNIPAQUE 240 Contrast volume (mL): 10 Image Guidance Fluoroscopic guidance. FLUOROSCOPIC RADIATION SUMMARY: Plane A, Air Kerma: 42.4 mGy Dose Area Product (DAP): 644.10 uGym2 Fluoro Time: 4:30 min:sec Radiation dose exceed 5 Gy: No If radiation dose exceeded 5 Gy, was counseling and instructional brochure provided: N/A Anesthesia/sedation Level of anesthesia/sedation: Moderate sedation (conscious sedation) Anesthesia/sedation administered by: Independent trained observer under attending supervision with continuous monitoring of the patient?s level of consciousness and physiologic status Total intra-service sedation time (minutes): 24 minutes Local anesthesia: 2% lidocaine Exchange and reposition of right lower quadrant drainage catheter Local anesthesia was administered. Initial injection of contrast material into the existing 10 Czech catheter did demonstrate tracking of contrast from the Temple loop inferiorly into a small collection in the pelvis. The collection appeared smaller than on the previous tube injection of 09/04/2024. The existing catheter was exchanged over a wire for a 5 Czech Kumpe catheter. In conjunction with a glide wire, the Kumpe catheter was maneuvered under fluoroscopy inferiorly within the tract to the small pelvic fluid collection. The Kumpe catheter was then exchanged over an Amplatz wire for an 8 Czech drainage catheter. The collection itself was too small to perform the Temple loop, so it was positioned with the tip in the collection and the sideholes ablated out along the tract. The catheter was secured to the skin with 0 Prolene suture and a sterile dressing was applied. New drain: [employer] 8 Czech all-purpose drainage catheter Number and Type of Removed Specimens: 0: N/A Estimated blood loss (mL): Trace Standardized report: SIR_BiliaryDrainExchang e_v3 Complications There were no immediate complications and no other complications. Conclusion The patient was comfortable and was transferred to the recovery room in stable condition. The procedure was performed by the: attending radiologist, without an assistant boiler operator. The attending radiologist performed the following procedural activities: Entire procedure IMPRESSION: Existing drainage catheter was removed over a wire. A Kumpe catheter and wire maneuvered into the small residual pelvic collection, which appeared smaller than on the previous contrast injection of 4 days ago. An 8 Czech drainage catheter was placed with the tip in the small pelvic collection and the side holes laid out along the tract. The collection in the pelvis was too small to accommodate forming a Temple loop. PLAN: Flush catheter every other day with 2-3 mL of sterile normal saline to maintain patency. Attestation Signer name: Mervat Solorzano I attest that I was present for the entire procedure. I reviewed the stored images and agree with the report as written. Services Manager: SHARON Transcribe Date/Time: Sep 08 2024 3:04P Dictated by : MERVAT SOLORZANO MD This examination was interpreted and the report reviewed and electronically signed by: MERVAT SOLORZANO MD on N (more content not included)... [facility] NURSING PROGon 09-08-2024 NURSING PROG HNO ID: [id number] Author: JACLYN RAMÍREZ RN Service: Nursing Author Type: Registered Nurse Type: Nursing Progress Note Filed: 09/10/2024 18:27 Note Text: Completed post procedure phone call. Mervat is feeling well and has returned to baseline diet and activity. Mervat denies questions or concerns related to Drain exchange appointment and had no surgical site concerns. [facility] NURSING PROG HNO ID: [id number] Author: KENYATTA RUIZ RN Service: Radiology Author Type: Registered Nurse Type: Nursing Progress Note Filed: 09/08/2024 14:02 Note Text: Other: Patient's stated that she was initially flushing abscess drain BID. She questioned how frequently she should flush now. Per Dr. Solorzano, tube should be flushed every other day, with 1-[address] Solorzano said that fluid may come out around the tube and to stop flushing if this occurs. He said the space is getting smaller so this is not unexpected. Verbalized instructions to patient and , they verbalized understanding. [facility] [id number] Author: KENYATTA RUIZ, ALEXUS Service: Radiology Author Type: Registered Nurse Type: Nursing Progress Note Filed: 09/08/2024 12:36 Note Text: PATIENT EDUCATION TOPIC: PROCEDURE / SURGERY: Procedure/Surgery: Adjustment of abscess drain with moderate sedation PATIENT NAME: Mervat Grayson PATIENT LOCATION: AV Rad Proc/AV Rad Proc READINESS TO LEARN COGNITIVE ABILITY: Alert and oriented MOTIVATION TO LEARN: Interested FAMILY SUPPORT: High - Very involved in pt care INSTRUCTION PROVIDED TO: Patient and Spouse PATIENT LEARNS BEST BY: Multiple Methods FACTORS AFFECTING LEARNING: None PHYSICAL LIMITATIONS AFFECTING LEARNING: None LEARNING RESPONSE DIAGNOSIS: ADULT: Maglignant neoplasm of rectum PATIENT/FAMILY RESPONSE: Verbalizes understanding of: POST-PROCEDURE INSTRUCTIONS-Correct actions to take to reduce post procedure complications PRE-PROCEDURE INSTRUCTIONS-Correct action to take to follow pre-procedure instructions METHOD OF INSTRUCTION: Written instruction/Handouts Verbal instruction FOLLOW-UP PLAN: Complete - No need for follow-up Patient instructed to call with any further issues INSTRUCTIONAL AIDS USED: NA SUPPLEMENTAL MATERIAL PROVIDED TO PATIENT: Home going instructions for drain placement and sedation given to patient and spouse REFERRAL (RECOMMENDATION): None Electronically Signed By: Kenyatta Ruiz [facility] CBC w/ Auto Diffon 4 Basophils/100 WBC (Bld) 0.9 % Normal 0.0-2.0 [facility] Comment on above: Performed By: #### 2 [id number] #### [facility] [address] [place] [address] Basophils/Leukocytes Auto (Bld) [Pure # fraction] 0.1 E9/L Normal 0.0-0.2 [facility] Comment on above: Performed By: #### 2 [id number] #### [facility] [address] [place] [address] Eosinophils (Bld) [#/Vol] 0.2 E9/L Normal 0.0-0.5 [facility] Comment on above: Performed By: #### 2 [id number] #### [facility] [address] [place] [address] Eosinophils/100 WBC (Bld) 2.3 % Normal 0.0-8.0 [facility] Comment on above: Performed By: #### 2 [id number] #### [facility] [address] [place] [address] Erythrocyte distribution width (RBC) [Ratio] 19.3 % High 10.9-14.2 [facility] Comment on above: Performed By: #### 2 [id number] #### [facility] [address] [place] [address] Hematocrit (Bld) [Volume fraction] 31.6 % Low 37.7-49.0 [facility] Comment on above: Performed By: #### 2 [id number] #### [facility] [address] [place] [address] Hemoglobin (Bld) [Mass/Vol] 10.3 g/dL Low 13.5-17.5 [facility] Comment on above: Performed By: #### 2 [id number] #### [facility] [address] [place] [address] Lymphocytes (Bld) [#/Vol] 0.6 E9/L Low 1.0-4.0 [facility] Comment on above: Performed By: #### 2 [id number] #### [facility] [address] [place] [address] Lymphocytes/100 WBC (Bld) 7.9 % Low 14.0-50.0 [facility] Comment on above: Performed By: #### 2 [id number] #### [facility] [address] [place] [address] MCH (RBC) [Entitic mass] 30.8 pg Normal 27.0-34.0 [facility] Comment on above: Performed By: #### 2 [id number] #### [facility] [address] [place] [address] MCHC (RBC) [Mass/Vol] 32.5 g/dL Normal 31.4-36.0 [facility] Comment on above: Performed By: #### 2 [id number] #### [facility] [address] [place] [address] MCV (RBC) [Entitic vol] 94.8 fL Normal 80.0-100.0 [facility] Comment on above: Performed By: #### 2 [id number] #### [facility] [address] [place] [address] Monocytes (Bld) [#/Vol] 0.4 E9/L Normal 0.2-1.0 [facility] Comment on above: Performed By: #### 2 [id number] #### [facility] [address] [place] [address] Neutrophils (Bld) [#/Vol] 6.8 E9/L Normal 2.0-7.5 [facility] Comment on above: Performed By: #### 2 717084 #### [facility] [address] [place] [address] Neutrophils/100 WBC (Bld) 83.7 % High 36.0-75.0 [facility] Comment on above: Performed By: #### 2 580973 #### [facility] [address] [place] [address] Platelet 226.0 E9/L Normal 150.0-500.0 [facility] Comment on above: Performed By: #### 2 073621 #### [facility] [address] [place] [address] Platelet mean volume (Bld) [Entitic vol] 8.4 fL Normal 6.4-10.8 [facility] Comment on above: Performed By: #### 2 567709 #### [facility] [address] [place] [address] RBC (Bld) [#/Vol] 3.3 E12/L Low 4.3-5.9 [facility] Comment on above: Performed By: #### 2 552654 #### [facility] [address] [place] [address] WBC corrected for nucl RBC Auto (Bld) [#/Vol] 8.1 E9/L Normal 4.0-11.0 [facility] Comment on above: Performed By: #### 2 129178 #### [facility] [address] [place] [address] [facility] 09-07-2024 [facility] Telephone (AVXRPR) MERVAT GRAYSON ([id number]) 1950 M Date Time Provider Department 09/07/24 JACLYN RAMÍREZ AVXRFANNY During your visit today, we recorded the following information about you: Jaclyn Ramírez RN 09/07/2024 12:44 PM Signed You are scheduled for a Drain Exchange, On 09/08/2024. You are to arrive at 12:00pm and Report to [facility]: [facility]: Radiology Outpatient Desk [id number] You can expect to be here for 2-4 hours. Diet: Do not eat any solid food after MIDNIGHT the day of/night before your procedure. You may drink clear liquids until 11:00am, which means black coffee, apple juice, black tea, or water only. Medications: Ok to take your cardiac, blood pressure, anti-seizure, and chronic pain medications with a sip of water, please take prior to arrival. Bring your current medication list. Contrast Dye Prep: Do you have a contrast dye allergy? No. Labs: Lab-work needs to be drawn? No.. Railroad Auditor/Transportation: How will you be arriving for your procedure? Private car. You will need a responsible adult to accompany you to and from the procedure. Your dairy truck driver is required to stay with you until you are taken into the procedure room. Please call [phone] if you have any questions Allergies As of Date: 09/07/2024 (No Known Allergies) Date Reviewed: 09/04/2024 Reviewed by: Ashley Angeles RT(R) - Fully Assessed Reason for Visit: Radiology Pre Procedure Instructions [1506] Prescriptions as of 09/07/2024 - sodium chloride 0.9 %, flush, (NORMAL SALINE FLUSH) syringe Inject 10 mL intravenously every 12 hours. Flush each IR drain with 10mL normal saline every 12 hours. - sodium chloride 0.9 %, flush, (NORMAL SALINE FLUSH) syringe Inject 10 mL intravenously every 12 hours. For use with IV antibiotics and IR drains - rivaroxaban (XARELTO) 20 mg tablet Take 1 tablet by mouth once daily. Patient should start on July 30, 2024. - ondansetron (ZOFRAN) 4 mg tablet Take 1 tablet by mouth every 8 hours as needed for nausea/vomiting. - calcium carbonate (CALCIUM 600 ORAL) Take [...] twice daily. 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]08/04/2018 Rectal cancer (HCC) [C20] 12/17/2022 Non-ischemic cardiomyopathy (HCC) [I42.8] 11/05/2023 RA (rheumatoid arthritis) (HCC) [M06.9] 11/05/2023 Pneumoperitoneum [K66.8] 07/23/2024 Obesity, Class I, BMI 30-34.9 [E66.811] 07/23/2024 Perforation bowel (HCC) [K63.1] 07/29/2024 S/P right colectomy [Z90.49] 07/29/2024 Intraabdominal fluid collection [R18.8] 08/14/2024 Encounter Status:Closed by JACLYN RAMÍREZ on 09/07/24 [facility] 09-04-2024 [facility] Telephone (AVXRPR) MERVAT GRAYSON ([id number]) 1950 M Date Time Provider Department 09/04/24 HARVINDER HARRELL AVXRPR During your visit today, we recorded the following information about you: Harvinder Harrell, RN 09/04/2024 1:18 PM Signed Called pt to provide pre-procedure instructions. Unidentified voicemail received. Left call back number for pt. Allergies As of Date: 09/04/2024 (No Known Allergies) Date Reviewed: 09/04/2024 Reviewed by: Ashley Angeles RT(R) - Fully Assessed Reason for Visit: Radiology Pre Procedure Instructions [1506] Prescriptions as of 09/04/2024 - sodium chloride 0.9 %, flush, (NORMAL SALINE FLUSH) syringe Inject 10 mL intravenously every 12 hours. Flush each IR drain with 10mL normal saline every 12 hours. - sodium chloride 0.9 %, flush, (NORMAL SALINE FLUSH) syringe Inject 10 mL intravenously every 12 hours. For use with IV antibiotics and IR drains - piperacillin-tazobactam (ZOSYN) 3.375 gram/50 mL in dextrose (iso-osmotic) Inject 50 mL intravenously every 6 hours for 17 days. - rivaroxaban (XARELTO) 20 mg tablet Take 1 tablet by mouth once daily. Patient should start on July 30, 2024. - ondansetron (ZOFRAN) 4 mg tablet Take 1 tablet by mouth every 8 hours as needed for nausea/vomiting. - calcium carbonate (CALCIUM 600 ORAL) Take [...] twice daily. 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]08/04/2018 Rectal cancer (HCC) [C20] 12/17/2022 Non-ischemic cardiomyopathy (HCC) [I42.8] 11/05/2023 RA (rheumatoid arthritis) (HCC) [M06.9] 11/05/2023 Pneumoperitoneum [K66.8] 07/23/2024 Obesity, Class I, BMI 30-34.9 [E66.811] 07/23/2024 Perforation bowel (HCC) [K63.1] 07/29/2024 S/P right colectomy [Z90.49] 07/29/2024 Intraabdominal fluid collection [R18.8] 08/14/2024 Encounter Status:Closed by HARVINDER HARRELL on 09/04/24 Normal [facility] Guidance for drainage and pl acement of drainage catheteron 09-04-2024 * * *Final Report* * * DATE OF EXAM: Sep 04 2024 11:20AM FVX 5939 - XR INJ DRAINAGE TUBE / PROCEDURE REASON: POSSIBLE DRAIN CHANGE NEEDED * * * * Physician Interpretation * * * * XR INJ DRAINAGE TUBE INDICATION: Status post laparoscopic right colectomy 07/22/2024. Abdominal pain with Intra-abdominal fluid collections, status post IR drains placed 08/14/2024. Decreasing drain output. TECHNIQUE: Fluoroscopic spot images were obtained following the administration of 60c via abscess drain catheter. Fluoroscopic Radiation Summary: Plane A, Air Kerma: 48.2 mGy Dose Area Product (DAP): 56121.0 mGy*cm^2 Fluoro time: 1:01 min:sec COMPARISON: Drain injection/exchange 08/25/2024 RESULT: Injection of contrast via right lower quadrant drainage catheter demonstrates contrast filling of a small space just superiorly to the distal tube. There is also a short tract of contrast extending inferiorly into a small space in the deep pelvis that fills with contrast. No fistulous connection to bowel demonstrated on this examination. The exam was performed by Nishi Matos RA under the direct supervision of Dr Osiris dorman who was immediately available to further services throughout the entire examination. [facility] Provider, [facility] - 09/04/2024 * * *Final Report* * * DATE OF EXAM: Sep 04 2024 11:20AM [facility] 5939 - XR INJ DRAINAGE TUBE / PROCEDURE REASON: POSSIBLE DRAIN CHANGE NEEDED * * * * Physician Interpretation * * * * XR INJ DRAINAGE TUBE INDICATION: Status post laparoscopic right colectomy 07/22/2024. Abdominal pain with Intra-abdominal fluid collections, status post IR drains placed 08/14/2024. Decreasing drain output. TECHNIQUE: Fluoroscopic spot images were obtained following the administration of 60c via abscess drain catheter. Fluoroscopic Radiation Summary: Plane A, Air Kerma: 48.2 mGy Dose Area Product (DAP): 68830.0 mGy*cm^2 Fluoro time: 1:01 min:sec COMPARISON: Drain injection/exchange 08/25/2024 RESULT: Injection of contrast via right lower quadrant drainage catheter demonstrates contrast filling of a small space just superiorly to the distal tube. There is also a short tract of contrast extending inferiorly into a small space in the deep pelvis that fills with contrast. No fistulous connection to bowel demonstrated on this examination. The exam was performed by Nishi Matos RA under the direct supervision of Dr Osiris dorman who was immediately available to further services throughout the entire examination. IMPRESSION IMPRESSION: RESOLUTION OF THE MAJORITY OF THE PROCEDURE SEEN FLUID COLLECTION IN THE RIGHT LOWER QUADRANT/UPPER PELVIS WITH PERSISTENT TRACKING OF CONTRAST CRANIALLY AND CAUDALLY WITHOUT FISTULOUS CONNECTION TO THE BOWEL. SMALL, DEEP PELVIC RESIDUAL COLLECTION CONSISTENT WITH THAT SEEN ON CT, CONNECTED TO THE AREA OF DRAINAGE CATHETER LOOP. THE PATIENT WILL BE BROUGHT IN FOR EXCHANGE/REPOSITIONING OF THE CATHETER FOR COPE LOOP TO BE REPOSITIONED INTO THE DEEP PELVIC COLLECTION. Services Manager: PSCB Transcribe Date/Time: Sep 04 2024 11:53A Dictated by : NISHI MATOS RPA This examination was interpreted and the report reviewed and electronically signed by: OSIRIS ESCOBAR MD on Sep 04 2024 12:29PM EST [facility] Radiology Study observation (narrative) [facility] Guidance for drainage and pl acement of drainage catheterOrdered By: [facility] Provider on 09-04-2024 [facility] XR INJ DRAINAGE TUBEon 09-04 XR INJ DRAINAGE TUBE * * *Final Report* * * DATE OF EXAM: Sep 04 2024 11:20AM [facility] 5939 - XR INJ DRAINAGE TUBE / PROCEDURE REASON: POSSIBLE DRAIN CHANGE NEEDED * * * * Physician Interpretation * * * * XR INJ DRAINAGE TUBE INDICATION: Status post laparoscopic right colectomy 07/22/2024. Abdominal pain with Intra-abdominal fluid collections, status post IR drains placed 08/14/2024. Decreasing drain output. TECHNIQUE: Fluoroscopic spot images were obtained following the administration of 60c via abscess drain catheter. Fluoroscopic Radiation Summary: Plane A, Air Kerma: 48.2 mGy Dose Area Product (DAP): 34838.0 mGy*cm^2 Fluoro time: 1:01 min:sec COMPARISON: Drain injection/exchange 08/25/2024 RESULT: Injection of contrast via right lower quadrant drainage catheter demonstrates contrast filling of a small space just superiorly to the distal tube. There is also a short tract of contrast extending inferiorly into a small space in the deep pelvis that fills with contrast. No fistulous connection to bowel demonstrated on this examination. The exam was performed by Nishi Matos RA under the direct supervision of Dr Osiris Escobar was who was immediately available to further services throughout the entire examination. IMPRESSION: RESOLUTION OF THE MAJORITY OF THE PROCEDURE SEEN FLUID COLLECTION IN THE RIGHT LOWER QUADRANT/UPPER PELVIS WITH PERSISTENT TRACKING OF CONTRAST CRANIALLY AND CAUDALLY WITHOUT FISTULOUS CONNECTION TO THE BOWEL. SMALL, DEEP PELVIC RESIDUAL COLLECTION CONSISTENT WITH THAT SEEN ON CT, CONNECTED TO THE AREA OF DRAINAGE CATHETER LOOP. THE PATIENT WILL BE BROUGHT IN FOR EXCHANGE/REPOSITIONING OF THE CATHETER FOR COPE LOOP TO BE REPOSITIONED INTO THE DEEP PELVIC COLLECTION. Services Manager: SHARON Transcribe Date/Time: Sep 04 2024 11:53A Dictated by : NISHI MATOS RPA This examination was interpreted and the report reviewed and electronically signed by: OSIRIS ESCOBAR MD on Sep 04 2024 12:29PM EST [id number] Normal [facility] CBC w/ Auto Diffon 4 Basophils/100 WBC (Bld) 0.7 % Normal 0.0-2.0 [facility] Comment on above: Performed By: #### 2 [id number] #### [facility] [address] [place] [address] Basophils/Leukocytes Auto (Bld) [Pure # fraction] 0.1 E9/L Normal 0.0-0.2 [facility] Comment on above: Performed By: #### 2 [id number] #### [facility] [address] [place] [address] Eosinophils (Bld) [#/Vol] 0.2 E9/L Normal 0.0-0.5 [facility] Comment on above: Performed By: #### 2 [id number] #### [facility] [address] [place] [address] Eosinophils/100 WBC (Bld) 2.3 % Normal 0.0-8.0 [facility] Comment on above: Performed By: #### 2 [id number] #### [facility] [address] [place] [address] Erythrocyte distribution width (RBC) [Ratio] 19.0 % High 10.9-14.2 [facility] Comment on above: Performed By: #### 2 [id number] #### [facility] [address] [place] [address] Hematocrit (Bld) [Volume fraction] 32.7 % Low 37.7-49.0 [facility] Comment on above: Performed By: #### 2 [id number] #### [facility] [address] [place] [address] Hemoglobin (Bld) [Mass/Vol] 10.7 g/dL Low 13.5-17.5 [facility] Comment on above: Performed By: #### 2 640395 #### [facility] [address] [place] [address] Lymphocytes (Bld) [#/Vol] 0.7 E9/L Low 1.0-4.0 [facility] Comment on above: Performed By: #### 2 484639 #### [facility] [address] [place] [address] Lymphocytes/100 WBC (Bld) 7.6 % Low 14.0-50.0 [facility] Comment on above: Performed By: #### 2 [id number] #### [facility] [address] [place] [address] MCH (RBC) [Entitic mass] 30.9 pg Normal 27.0-34.0 [facility] Comment on above: Performed By: #### 2 [id number] #### [facility] [address] [place] [address] MCHC (RBC) [Mass/Vol] 32.8 g/dL Normal 31.4-36.0 [facility] Comment on above: Performed By: #### 2 267662 #### [facility] [address] [place] [address] MCV (RBC) [Entitic vol] 94.4 fL Normal 80.0-100.0 [facility] Comment on above: Performed By: #### 2 289652 #### [facility] [address] [place] [address] Monocytes (Bld) [#/Vol] 0.6 E9/L Normal 0.2-1.0 [facility] Comment on above: Performed By: #### 2 801307 #### [facility] [address] [place] [address] Neutrophils (Bld) [#/Vol] 7.8 E9/L High 2.0-7.5 [facility] Comment on above: Performed By: #### 2 630892 #### [facility] [address] [place] [address] Neutrophils/100 WBC (Bld) 82.8 % High 36.0-75.0 [facility] Comment on above: Performed By: #### 2 914715 #### [facility] [address] [place] [address] Platelet mean volume (Bld) [Entitic vol] 8.1 fL Normal 6.4-10.8 [facility] Comment on above: Performed By: #### 2 414602 #### [facility] [address] [place] [address] Platelets (Bld) [#/Vol] 353.0 E9/L Normal 150.0-500.0 [facility] Comment on above: Performed By: #### 2 360757 #### [facility] [address] [place] [address] RBC (Bld) [#/Vol] 3.5 E12/L Low 4.3-5.9 [facility] Comment on above: Performed By: #### 2 899929 #### [facility] [address] [place] [address] WBC corrected for nucl RBC Auto (Bld) [#/Vol] 9.5 E9/L Normal 4.0-11.0 [facility] Comment on above: Performed By: #### 2 [id number] #### [facility] [address] [place] [address] CNPNon 08-28-2024 CNPN Normal [facility] CNPNon 08-27-2024 CNPN Normal [facility] CT ABD/PEL W IVCONon 024 CT ABD/PEL W IVCON * * *Final Report* * * DATE OF EXAM: Aug 25 2024 10:38AM [facility] 0530 - CT ABD/PEL W IVCON / PROCEDURE REASON: Malignant neoplasm of rectum (HCC) * * * * Physician Interpretation * * * * EXAMINATION: CT ABDOMEN AND PELVIS WITH IV CONTRAST CLINICAL HISTORY: Rectal cancer follow-up TECHNIQUE: CT of the abdomen and pelvis was performed using standard technique, scanning from just above the dome of the diaphragm to the upper thighs. Contrast: IV: 100 ml of Omnipaque 350 Oral: 450 ml of Omni 240 10-25ml diluted with water CT Radiation dose: Integrated Dose-length product (DLP) for this visit = 701 mGy*cm. CT Dose Reduction Employed: Automated exposure control(AEC) and iterative recon COMPARISON: CT abdomen pelvis 08/13/[address] drain placement 08/14/2024 FINDINGS: LOWER CHEST: No significant abnormality. Stable consolidations of the lower lobes likely reflects atelectasis or scarring. HEPATOBILIARY: The liver and gallbladder are grossly unremarkable with no focal hepatic mass seen. Few stones are present in the region of the gallbladder neck with no secondary signs of inflammation seen. No biliary ductal dilatation. SPLEEN, PANCREAS, ADRENAL GLANDS: Scattered tiny calcified granuloma are again noted within the spleen. Otherwise, within Normal limits. KIDNEYS, URETERS, BLADDER: Symmetric parenchymal enhancement with no obstructing calculus or hydronephrosis. Scattered nonobstructing calculi throughout both kidneys, and multiple renal sinus cysts are again noted. Ureters and bladder within normal limits. PROSTATE, SEMINAL VESICLES: No CT finding of pathology. BOWEL: Postsurgical changes from prior right hemicolectomy are again noted. The coloenteric anastomosis is patent, and there is no convincing wall thickening of the remainder of the colon to suggest recurrent disease. Scattered diverticula are present throughout the sigmoid colon, with diffuse mild circumferential wall thickening likely reflecting a combination of underdistention and smooth muscle hypertrophy. PERITONEAL/EXTRAPERITON EAL SPACE: Bilateral percutaneous drains of the lower quadrants are again noted, and the associated fluid collections have nearly resolved, with the respective cavities collapsed around either pigtail. A 3.0 x 2.2 cm rim-enhancing collection of the pelvis, lateral to the rectum (series 301, axial 104) persists, as does a 3.8 x 2.1 cm fluid collection adjacent to the bowel anastomosis (axial 73). The latter fluid collection does not demonstrate conspicuous peripheral enhancement and is slightly decreased in size from prior exam where it measured 4.3 x 2.1 cm. There is residual stranding and edema near the anastomosis that is improved from prior exam. LYMPH NODES: No adenopathy. VASCULAR: Grossly unremarkable. ABDOMINAL WALL: Free of hernias. MUSCULOSKELETAL: No suspicious osseous lesion. IMPRESSION: 1. No CT evidence of recurrent or metastatic disease in the abdomen or pelvis. 2. Significant improvement of the multiple fluid collections previously seen within the abdomen or pelvis, with bilateral percutaneous drains remaining in place. The respective fluid collection cavities are now collapsed around either pigtail. 3. Persistent rim-enhancing pelvic fluid collection. Though decreased in size, measuring 3.0 x 2.2 cm (previously 4.0 x 2.6 cm), this finding remains concerning for abscess 3.0 x 2.2 cm (previously 4.0 x 2.6 cm). 4. Another lobulated 3.8 x 2.1 cm (previously 4.3 x 2.1 cm) fluid collection adjacent to the bowel anastomosis persists. Given the lack of convincing peripheral enhancement, this may reflect a postoperative seroma. However, sterility cannot be confirmed at CT imaging. 5. Additional incidental findings as above. Services Manager: SHARON Transcribe Date/Time: Aug 30 2024 8:03A Dictated by : YELITZA DUNN MD This examination was interpreted and the report reviewed and electronically signed by: YELITZA DUNN MD on Aug 30 2024 8:24AM EST [id number] [facility] IR ABSCESS/CYST DRAIN EXCHAN [facility] 11-05-2024 IR ABSCESS/CYST DRAIN EXCHANGE * * *Final Report* * * DATE OF EXAM: Aug 25 2024 12:54PM [facility] [id number] - IR ABSCESS/CYST DRAIN EXCHANGE / PROCEDURE REASON: Abscess [L02.91] * * * * Physician Interpretation * * * * PROCEDURE: DRAINAGE CATHETER EXCHANGE Procedural Personnel Attending physician(s): Carol Manrique DO Pre-procedure diagnosis: Abscess Post-procedure diagnosis: Same Indication: Malfunction or breakage of indwelling drainage catheter Additional clinical history: None _ PROCEDURE SUMMARY: -Abscess drain catheter exchange under fluoroscopic guidance - Additional procedure(s): None PROCEDURE DETAILS: Pre-procedure Consent: Risks, benefits, treatment options, potential complications and personnel to be involved were discussed (including the risks of radiation exposure, contrast and anesthesia administration, and any equipment needed for the procedure to ensure best possible outcome) with the patient and all questions were answered and consent was obtained prior to procedure. Premedicated for contrast allergy: n/a Transfusion of blood products: No Medication reconciliation: [...] and procedure-specific equipment needs. Start of procedure: 1249 End of procedure: 1252 Patient position: supine Preparation: The site was prepared and draped using all elements of maximal sterile barrier technique including sterile gloves, sterile gown, cap, mask, large sterile sheet, sterile ultrasound probe cover, hand hygiene and cutaneous antisepsis. Antibiotics: Already on appropriate antibiotic(s) Antibiotic infusion start time: N/A Prophylactic antibiotic administered: None- patient already on suitable antibiotic regimen Contrast Contrast agent: OMNIPAQUE 240 Contrast volume (mL): 5 Image Guidance: Access was obtained into the target lesion under direct sonographic and fluoroscopic visualization. A sonographic image was obtained and placed into the permanent archive for documentation. Radiation Dose FLUOROSCOPIC RADIATION SUMMARY: Plane A, Air Kerma: 5.0 mGy Dose Area Product (DAP): 76.55 uGym2 Fluoro Time: 0:18 min:sec Radiation dose exceed 5 Gy: No If radiation dose exceeded 5 Gy, was counseling and instructional brochure provided: N/A Anesthesia/sedation Level of anesthesia/sedation: No sedation Anesthesia/sedation administered by: Independent trained observer under attending supervision with continuous monitoring of the patient?s level of consciousness and physiologic status Total intra-service sedation time (minutes): 0 Local anesthesia: 1 % lidocaine Drainage catheter exchange Initial imaging was performed with contrast injection through the indwelling tube. Local anesthesia was administered. A wire was placed through the indwelling drainage catheter and the catheter was removed. The new drainage catheter was advanced, and position within the fluid collection was confirmed. - Initial imaging findings: A space fills with contrast compatible with the known region of abscess remaining seen on CT scan - Pre-existing drainage catheter: 10 Czech uracil drainage - Drainage catheter placed: 10 Czech APD - External catheter securement: Non-absorbable suture - Post-drain exchange imaging findings: In the same position with cope loop formed Additional Details Additional description of procedure: None Equipment details: None Specimens removed: None Estimated blood loss (mL): Less than 10 Standardized report: SIR_DrainageCatheterExc hange_v3 Complications There were no immediate complications . Conclusion The patient was comfortable and was transferred to the recovery room in stable condition. The procedure was performed by the:attending radiologist, without an assistant boiler operator. The attending radiologist performed the following procedural activities: Entire procedure IMPRESSION: Exchange of indwelling right lower quadrant abscess drainage catheter for a new 10F drainage catheter in the same position. The prior existing catheter was fractured. PLAN: * Flush every other day with 5-10 cc sterile normal saline to maintain patency. Connect to bag for passive drainage. * Do not use 3 way stop cock. Attestation Signer name: D A Parato (more content not included)... Normal [facility] NURSING PROGon 08-25-2024 NURSING PROG HNO ID: [id number] Author: BRI RIVERA ALEXUS Service: ? Author Type: Registered Nurse Type: Nursing Progress Note Filed: 08/25/2024 13:44 Note Text: Called Meme Mcpherson re: left drainage tube not maintaining self suction. Family and patient asking whether or not he should continue irrigating tubing two times a day. Normal [facility] NURSING PROG HNO ID: [id number] Author: HARVINDER HARRELL RN Service: Nursing Author Type: Registered Nurse Type: Nursing Progress Note Filed: 08/25/2024 09:44 Note Text: Radiology Service Progress Note DATE OF SERVICE: August 25, 2024 TIME: 9:43 AM PATIENT WEIGHT: 238 LBS PATIENT IDENTITY VERIFICATION COMPLETED USING TWO (2) [...] Reviewed and unchanged CONTRAST ALLERGY: No EXAM: CT -CONTRAST INDUCED NEPHROPATHY RISK FACTORS: Patient age > 60 years CREATININE: Creatinine Date Value Ref Range Status 08/18/2024 1.08 0.73 - 1.22 mg/dL Final 08/17/2024 1.12 0.73 - 1.22 mg/dL Final 08/16/2024 1.05 0.73 - 1.22 mg/dL Final Estimated Glomerular Filtration Rate Date Value Ref Range Status 08/18/2024 73 >=60 mL/min/1.73m? Final Comment: Estimated Glomerular Filtration Rate (eGFR) is calculated using the 2020 CKD-EPI creatinine equation. This equation utilizes serum creatinine, sex, and age as parameters. The creatinine assay has traceable calibration to isotope dilution-mass spectrometry. Refer to KDIGO guidelines for clinical interpretation. In patients with unstable renal function, e.g. those with acute kidney injury, the eGFR may not accurately reflect actual GFR. eGFR- Date Value Ref Range Status 08/04/2018 >60 Final P.O.C.T. RESULTS: N/A August 25, 2024 TREATMENT: N/A IV SITE: Ambulatory: A peripheral IV was started in the Right antecubital site with a Angio cath: 20 gauge. IV SITE APPEARANCE: Clean,Dry and Intact SIGNATURE: Harvinder Harrell RN PATIENT NAME: Mervat Grayson DATE: August 25, 2024 TIME: 9:43 AM Normal [facility] CBC w/ Auto Diffon 4 Basophils/100 WBC (Bld) 0.7 % Normal 0.0-2.0 [facility] Comment on above: Performed By: #### 2 [id number] #### [facility] [address] [place] [address] Basophils/Leukocytes Auto (Bld) [Pure # fraction] 0.1 E9/L Normal 0.0-0.2 [facility] Comment on above: Performed By: #### 2 [id number] #### [facility] [address] [place] [address] Eosinophils (Bld) [#/Vol] 0.2 E9/L Normal 0.0-0.5 [facility] Comment on above: Performed By: #### 2 965483 #### [facility] [address] [place] [address] Eosinophils/100 WBC (Bld) 2.2 % Normal 0.0-8.0 [facility] Comment on above: Performed By: #### 2 731215 #### [facility] [address] [place] [address] Erythrocyte distribution width (RBC) [Ratio] 18.5 % High 10.9-14.2 [facility] Comment on above: Performed By: #### 2 728912 #### [facility] [address] [place] [address] Hematocrit (Bld) [Volume fraction] 29.2 % Low 37.7-49.0 [facility] Comment on above: Performed By: #### 2 874024 #### [facility] [address] [place] [address] Hemoglobin (Bld) [Mass/Vol] 9.6 g/dL Low 13.5-17.5 [facility] Comment on above: Performed By: #### 2 962677 #### [facility] [address] [place] [address] Lymphocytes (Bld) [#/Vol] 0.8 E9/L Low 1.0-4.0 [facility] Comment on above: Performed By: #### 2 140834 #### [facility] [address] [place] [address] Lymphocytes/100 WBC (Bld) 7.8 % Low 14.0-50.0 [facility] Comment on above: Performed By: #### 2 431163 #### [facility] [address] [place] [address] MCH (RBC) [Entitic mass] 30.8 pg Normal 27.0-34.0 [facility] Comment on above: Performed By: #### 2 142212 #### [facility] [address] [place] [address] MCHC (RBC) [Mass/Vol] 32.8 g/dL Normal 31.4-36.0 [facility] Comment on above: Performed By: #### 2 002715 #### [facility] [address] [place] [address] MCV (RBC) [Entitic vol] 94.1 fL Normal 80.0-100.0 [facility] Comment on above: Performed By: #### 2 246279 #### [facility] [address] [place] [address] Monocytes (Bld) [#/Vol] 0.5 E9/L Normal 0.2-1.0 [facility] Comment on above: Performed By: #### 2 048156 #### [facility] [address] [place] [address] Neutrophils (Bld) [#/Vol] 8.6 E9/L High 2.0-7.5 [facility] Comment on above: Performed By: #### 2 743039 #### [facility] [address] [place] [address] Neutrophils/100 WBC (Bld) 84.7 % High 36.0-75.0 [facility] Comment on above: Performed By: #### 2 056950 #### [facility] [address] [place] [address] Platelet mean volume (Bld) [Entitic vol] 8.2 fL Normal 6.4-10.8 [facility] Comment on above: Performed By: #### 2 888648 #### [facility] [address] [place] [address] Platelets (Bld) [#/Vol] 489.0 E9/L Normal 150.0-500.0 [facility] Comment on above: Performed By: #### 2 295277 #### [facility] [address] [place] [address] RBC (Bld) [#/Vol] 3.1 E12/L Low 4.3-5.9 [facility] Comment on above: Performed By: #### 2 300392 #### [facility] [address] [place] [address] WBC corrected for nucl RBC Auto (Bld) [#/Vol] 10.1 E9/L Normal 4.0-11.0 [facility] Comment on above: Performed By: #### 2 596198 #### [facility] [address] [place] [address] CEAon 08-24-2024 CEA 1.8 ng/mL Invalid Interpretation Code [facility] Comment on above: Result Comment: 'NON -SMOKER < 2.5' 'SMOKER < 5.0' The concentration of CEA in a given specimen determined by different manufacturers can vary due to differences in assay methods and reagent specificity. Values obtained with different assay methods cannot be used interchangeably. The methodology used to perform this test was chemiluminescence using [employer] Access CEA reagent. Performed By: #### 2 523902 #### [facility] [address] [place] [address] CMPon 08-24-2024 Albumin [Mass/Vol] 3.2 g/dL Low 3.3-5.0 [facility] Comment on above: Performed By: #### 2 860240 #### [facility] [address] [place] [address] Albumin/Globulin (S) [Mass conc ratio] 1.1 Normal 1.1-2.2 [facility] Comment on above: Performed By: #### 2 446957 #### [facility] [address] [place] [address] ALP [Catalytic activity/Vol] 70 Int._Unit/L Normal 21-98 [facility] Comment on above: Performed By: #### 2 313473 #### [facility] [address] [place] [address] ALT No additional P-5'-P [Catalytic activity/Vol] 19 Int._Unit/L Normal 6-46 [facility] Comment on above: Performed By: #### 2 142059 #### [facility] [address] [place] [address] Anion gap [Moles/Vol] 12 mmol/L Normal 6-16 [facility] Comment on above: Performed By: #### 2 324176 #### [facility] [address] [place] [address] AST [Catalytic activity/Vol] 19 Int._Unit/L Normal 5-43 [facility] Comment on above: Performed By: #### 2 598515 #### [facility] [address] [place] [address] Bilirubin [Mass/Vol] 0.5 mg/dL Normal 0.0-1.1 [facility] Comment on above: Performed By: #### 2 414013 #### [facility] [address] [place] [address] Calcium [Mass/Vol] 8.8 mg/dL Low 8.9-11.1 [facility] Comment on above: Performed By: #### 2 851850 #### [facility] [address] [place] [address] Chloride [Moles/Vol] 108 mmol/L Normal 101-111 [facility] Comment on above: Performed By: #### 2 471512 #### [facility] [address] [place] [address] CO2 [Moles/Vol] 26 mmol/L Normal 21-31 [facility] Comment on above: Performed By: #### 2 749934 #### [facility] [address] [place] [address] Creatinine [Mass/Vol] 1.2 mg/dL Normal 0.5-1.3 [facility] Comment on above: Performed By: #### 2 192021 #### [facility] [address] [place] [address] Globulin (S) [Mass/Vol] 2.9 g/dL Normal 1.4-4.0 [facility] Comment on above: Performed By: #### 2 462425 #### [facility] [address] [place] [address] Glucose [Mass/Vol] 115 mg/dL Normal 55-199 [facility] Comment on above: Performed By: #### 2 381311 #### [facility] [address] [place] [address] Potassium [Moles/Vol] 3.7 mmol/L Normal 3.5-5.3 [facility] Comment on above: Performed By: #### 2 738318 #### [facility] [address] [place] [address] Protein [Mass/Vol] 6.1 g/dL Normal 6.0-7.8 [facility] Comment on above: Performed By: #### 2 932025 #### [facility] [address] [place] [address] Sodium [Moles/Vol] 142 mmol/L Normal 135-145 [facility] Comment on above: Performed By: #### 2 031350 #### [facility] [address] [place] [address] Urea nitrogen [Mass/Vol] 14 mg/dL Normal 5-21 [facility] Comment on above: Performed By: #### 2 053815 #### [facility] [address] [place] [address] Urea nitrogen/Creatinine [Mass ratio] 12 No Units Normal 10-20 [facility] Comment on above: Performed By: #### 2 194326 #### [facility] [address] [place] [address] Yaron 08-24-2024 CNPN Telephone (AVXRPR) MERVAT GRAYSON ([id number]) 1950 M Date Time Provider Department 08/24/24 ESTRELLA MCMILLAN AVXRPR During your visit today, we recorded the following information about you: Estrella Mcmillan RN 08/24/2024 3:34 PM Signed You are scheduled for a abscess drainage catheter exchange, On 08/25/2024. You are to arrive at 9 15 am and Report to [facility]: [facility]: Radiology Outpatient Desk [id number] Diet: Do not eat any solid food after midnight the day of/night before your procedure. You may drink clear liquids until , which means black coffee, apple juice, black tea, or water only. Medications: Ok to take your cardiac, blood pressure, anti-seizure, and chronic pain medications with a sip of water, please take prior to arrival. Bring your current medication list. RADIOLOGY RECOMMENDS THESE MEDICATION RESTRICTIONS: DO NOT STOP XARALTO FOR THIS PROCEDURE Special concerns: Do you have any attached medical devices? No, . Insulin pumps must be removed before entering the procedure room. Do you wear Neulasta Onpro? No. If yes, the device must be removed before entering the procedure room. Do you use CPAP or BPAP? No. Labs: Lab-work needs to be drawn? No.. Railroad Auditor/Transportation: How will you be arriving for your procedure? Private car. You will need a responsible adult to accompany you to and from the procedure. Your dairy truck driver is required to stay with you until you are taken into the procedure room. Call [phone] for questions Allergies As of Date: 08/24/2024 (No Known Allergies) Date Reviewed: 08/16/2024 Reviewed by: Linda Springer RN - Fully Assessed Reason for Visit: Radiology Pre Procedure Instructions [1506] Prescriptions as of 08/24/2024 - sodium chloride 0.9 %, flush, (NORMAL SALINE FLUSH) syringe Inject 10 mL intravenously every 12 hours. Flush each IR drain with 10mL normal saline every 12 hours. - sodium chloride 0.9 %, flush, (NORMAL SALINE FLUSH) syringe Inject 10 mL intravenously every 12 hours. For use with IV antibiotics and IR drains - piperacillin-tazobactam (ZOSYN) 3.375 gram/50 mL in dextrose (iso-osmotic) Inject 50 mL intravenously every 6 hours for 17 days. - rivaroxaban (XARELTO) 20 mg tablet Take 1 tablet by mouth once daily. Patient should start on July 30, 2024. - ondansetron (ZOFRAN) 4 mg tablet Take 1 tablet by mouth every 8 hours as needed for nausea/vomiting. - calcium carbonate (CALCIUM 600 ORAL) Take [...] twice daily. 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]08/04/2018 Rectal cancer (HCC) [C20] 12/17/2022 Non-ischemic cardiomyopathy (HCC) [I42.8] 11/05/2023 RA (rheumatoid arthritis) (HCC) [M06.9] 11/05/2023 Pneumoperitoneum [K66.8] 07/23/2024 Obesity, Class I, BMI 30-34.9 [E66.811] 07/23/2024 Perforation bowel (HCC) [K63.1] 07/29/2024 S/P right colectomy [Z90.49] 07/29/2024 Intraabdominal fluid collection [R18.8] 08/14/2024 Encounter Status:Closed by ESTRELLA MCMILLAN on 08/24/24 [facility] eGFRon 08-24-2024 eGFR 64 mL/min/1.73 m2 Normal >=59 [facility] Comment on above: Performed By: #### 1 [id number] #### [facility] [address] [place] [address] [facility] C[facility]N Normal [facility] [id number] 08-18-2024 [id number] HNO ID: [id number] Author: VALENCIA ALEXANDRA RN Service: ? Author Type: Registered Nurse Type: [id number] Filed: 08/18/2024 12:10 Note Text: Please change mediport dressing 08/21/2024 [facility] Basic metabolic 2000 panelon 08-18-2024 Anion gap [Moles/Vol] 11 mmol/L Normal 8-15 [facility] Comment on above: Order Comment: Speci men Type: BLOOD SPECIMEN Ordering Facility: [facility] Address: [address] [place] [address] Performed By: #### 3 4528-0, 59499-0 #### [facility] CLIA [id number] [place] [id number] [place] Calcium [Mass/Vol] 8.4 mg/dL Low 8.5-10.2 [facility] Comment on above: Order Comment: Speci men Type: BLOOD SPECIMEN Ordering Facility: [facility] Address: [address] [place] [address] Performed By: #### 3 4528-0, 69378-5 #### [facility] CLIA [id number] [address] [place] [id number] [place] Chloride [Moles/Vol] 105 mmol/L Normal 98-107 [facility] Comment on above: Order Comment: Speci men Type: BLOOD SPECIMEN Ordering Facility: [facility] Address: [address] [place] [address] Performed By: #### 3 4528-0, 00501-4 #### [facility] CLIA [id number] [place] [address] [place] CO2 [Moles/Vol] 26 mmol/L Normal 22-30 [facility] Comment on above: Order Comment: Speci men Type: BLOOD SPECIMEN Ordering Facility: [facility] Address: [address] [place] [address] Performed By: #### 3 4528-0, 04067-4 #### [facility] CLIA [id number] [place] [address] [place] Creatinine [Mass/Vol] 1.08 mg/dL Normal 0.73-1.22 [facility] Comment on above: Order Comment: Speci men Type: BLOOD SPECIMEN Ordering Facility: [facility] Address: [address] [place] [address] Performed By: #### 3 4528-0, 19511-4 #### [facility] CLIA [id number] [address] [place] [address] [place] Creatinine and Glomerular filtration rate.predicted panel (S/P/Bld) 73 mL/min/1.73m??? Normal >=60 [facility] Comment on above: Order Comment: Speci men Type: BLOOD SPECIMEN Ordering Facility: [facility] Address: [address] [place] [address] Result Comment: Rebekah mated Glomerular Filtration Rate [...] accurately reflect actual GFR. Performed By: #### 3 4528-0, 53295-8 #### [facility] CLIA [id number] [place] [address] [place] Glucose [Mass/Vol] 105 mg/dL High 74-99 [facility] Comment on above: Order Comment: Nazario brooks Type: BLOOD SPECIMEN Ordering Facility: [facility] Address: [address] [place] [address] Result Comment: The [place] [employer] (ADA) provides guidance for cutoff values for fasting glucose and random glucose. The ADA defines fasting as no caloric intake for at least 8 hours. Fasting plasma glucose results between 100 to 125 mg/dL indicate increased risk for diabetes (prediabetes). Fasting plasma glucose results greater than or equal to 126 mg/dL meet the criteria for diagnosis of diabetes. In the absence of unequivocal hyperglycemia, results should be confirmed by repeat testing. In a patient with classic symptoms of hyperglycemia or hyperglycemic crisis, random plasma glucose results greater than or equal to 200 mg/dL meet the criteria for diagnosis of diabetes. Reference: Standards of Medical Care in Diabetes 2016, [place] [employer]. Diabetes Care. 2016.39(Suppl 1). Performed By: #### 3 4528-0, 29038-7 #### [facility] CLIA [id number] [place] [address] [place] Potassium [Moles/Vol] 3.7 mmol/L Normal 3.7-5.1 [facility] Comment on above: Order Comment: Nazario brooks Type: BLOOD SPECIMEN Ordering Facility: [facility] Address: [address] [place] [address] Performed By: #### 3 4528-0, 21714-4 #### [facility] CLIA [id number] [place] [address] [place] Sodium [Moles/Vol] 142 mmol/L Normal 136-144 [facility] Comment on above: Order Comment: Nazario men Type: BLOOD SPECIMEN Ordering Facility: [facility] Address: [address] [place] [address] Performed By: #### 3 4528-0, 98198-2 #### [facility] CLIA [id number] [place] [address] [place] Urea nitrogen [Mass/Vol] 9 mg/dL Normal 9-24 [facility] Comment on above: Order Comment: Speci men Type: BLOOD SPECIMEN Ordering Facility: [facility] Address: [address] [place] [address] Performed By: #### 3 4528-0, 62182-5 #### [facility] CLIA [id number] [place] [facility] CBC panel Auto (Bld)on 08-18 Erythrocyte distribution width (RBC) [Ratio] 16.3 % High 11.5-15.0 [facility] Comment on above: Order Comment: Speci men Type: BLOOD SPECIMENOrdering Facility: [facility] Address: [address] [place] [address] Performed By: #### 5 8410-2 ####[facility] [id number] [address] [place] [facility] Hematocrit (Bld) [Volume fraction] 25.9 % Low 39.0-51.0 [facility] Comment on above: Order Comment: Speci men Type: BLOOD SPECIMENOrdering Facility: [facility] Address: [address] [place] [address] Performed By: #### 5 8410-2 ####[facility] [id number] [place] [address] [place] Hemoglobin (Bld) [Mass/Vol] 7.9 g/dL Low 13.0-17.0 [facility] Comment on above: Order Comment: Speci men Type: BLOOD SPECIMENOrdering Facility: [facility] Address: [address] [place] [address] Performed By: #### 5 8410-2 ####[facility]ORATORYCLIA [id number] [address] [place] MCH (RBC) [Entitic mass] 29.2 pg Normal 26.0-34.0 [facility] Comment on above: Order Comment: Speci men Type: BLOOD SPECIMENOrdering Facility: [facility] Address: [address] [place] [address] Performed By: #### 5 8410-2 ####[facility] LABORATORYCLIA [id number] [address] [place] MCHC (RBC) [Mass/Vol] 30.5 g/dL Normal 30.5-36.0 [facility] Comment on above: Order Comment: Speci men Type: BLOOD SPECIMENOrdering Facility: [facility] Address: [address] [place] [address] Performed By: #### 5 8410-2 ####[facility] LABORATORYCLIA [id number] [place] [address] [place] MCV (RBC) [Entitic vol] 95.6 fL Normal 80.0-100.0 [facility] Comment on above: Order Comment: Speci men Type: BLOOD SPECIMENOrdering Facility: [facility] Address: [address] [place] [address] Performed By: #### 5 8410-2 ####[facility] LABORATORYCLIA [id number] [place] [address] [place] Nucleated RBC (Bld) [#/Vol] 10*3/uL Normal <0.01 [facility] Comment on above: Order Comment: Speci men Type: BLOOD SPECIMENOrdering Facility: [facility] Address: [address] [place] [address] Performed By: #### 5 8410-2 ####[facility] LABORATORYCLIA [id number] [place] [address] [place] Platelet mean volume (Bld) [Entitic vol] 9.7 fL Normal 9.0-12.7 [facility] Comment on above: Order Comment: Speci men Type: BLOOD SPECIMENOrdering Facility: [facility] Address: [address] [place] [address] Performed By: #### 5 8410-2 ####[facility] LABORATORYCLIA [id number] [place] [address] [place] Platelets (Bld) [#/Vol] 547 10*3/uL High 150-400 [facility] Comment on above: Order Comment: Speci men Type: BLOOD SPECIMENOrdering Facility: [facility] Address: [address] [place] [address] Performed By: #### 5 8410-2 ####[facility] LABORATORYCLIA [id number] [place] [id number] [place] RBC (Bld) [#/Vol] 2.71 10*6/uL Low 4.20-6.00 [facility] Comment on above: Order Comment: Speci men Type: BLOOD SPECIMENOrdering Facility: [facility] Address: [address] [place] [address] Performed By: #### 5 8410-2 ####[facility] LABORATORYCLIA [id number] [place] [id number] [place] WBC (Bld) [#/Vol] 10.93 10*3/uL Normal 3.70-11.00 [facility] Comment on above: Order Comment: Speci men Type: BLOOD SPECIMENOrdering Facility: [facility] Address: [address] [place] [address] Performed By: #### 5 8410-2 ####[facility]ORATORYCLIA [id number] [place] [id number] [facility] CNDSon 08-18-2024 CNDS HNO ID: [id number] Author: DEBORAH NORMAN MD Service: Colorectal Author Type: Nurse Practitioner Type: Discharge Summary Filed: 08/18/2024 22:24 Note Text: Attestation signed by Deborah Norman MD at 08/18/2024 10:24 PM Attending Note As above Signature: Deborah Norman MD Date: 08/18/2024 Time: 10:24 PM DISCHARGE SUMMARY PATIENT NAME: Mervat Grayson ADMISSION DATE: 08/14/2024 DISCHARGE DATE: 08/18/2024 ATTENDING PHYSICIAN: Deborah Norman MD Code Status: Not on file Highest Readmission Risk Score: 22 The 30 day readmissions risk score is derived from an internally validated risk model which evaluates patient level characteristics, utilization history, medication orders and lab results up until the day of discharge. Patients with a score of 40 or above are considered highest risk for readmission. Specific patient level drivers will be listed at the bottom of the summary. CONSULTING TEAMS DURING HOSPITALIZATION: None Treatment Team: Attending Provider: Deborah Norman MD Consulting: Maulik Goncalves V, MD Consulting: Gina Manrique MD REASON FOR HOSPITALIZATION: intra-abdominal fluid collections on outpatient CT DIAGNOSIS: Principal Problem: Intraabdominal fluid collection (POA: Yes) Resolved Problems: * No resolved hospital problems. * Obesity Class I (BMI 30-34.9) OPERATIONS DURING HOSPITALIZATION: None PROCEDURES DURING HOSPITALIZATION: IR drain placement HOSPITAL COURSE: Mr Grayson is a 73 year old male who was admitted with CT findings of intraabdominal fluid collections and abdominal pain. IR drains placed on 08/14 and he was admitted for IV antibiotics, ID consult, culture results and home care. Tolerated a diet and had adequate bowel function. Mobilized without concern. DVT ppx appropriate while inpatient, resumed oral anticoagulation at discharge. ID consulted and Rx zosyn based on culture results. Mediport accessed. Home care and IV antibiotics coordinated for discharge. On 08/18/2024 he was discharged home with IR drains in place, mediport accessed and IV antibiotics Rx and delivered to the house, and [facility] set up with an outpatient CT scan scheduled in 1 weeks. Transitions of Care Critical Issues: N/a LABS AND PROCEDURES PENDING AT DISCHARGE: No pending results. PATIENT CONDITION AT DISCHARGE: Stable DISCHARGE DISPOSITION: Home with Home Health Discharge Physical Exam: VITAL SIGNS: BP 121/77 Pulse 70 Temp 36.9 ?C (98.4 ?F) (Oral) Resp 12 Ht 188 cm (6' 2 ) Wt 108.3 kg (238 lb 12.1 oz) SpO2 96% BMI 30.65 kg/m? INFORMATION PROVIDED TO PATIENT: discharge instructions ALLERGIES No Known Allergies DISCHARGE MEDICATION: Medication List START taking these medications enteric contrast (will be provided with radiology test) For CT ABD/PEL W IVCON Routine order Administer, As Directed One Time Only, via Oral, Rectal, both Oral and Rectal, Enteric Tube, Stoma or Indwelling Catheter, Enteric Contrast as designated per enteric contrast guidelines * iv contrast (will be provided with radiology test) CT ABD/PEL -Inject, intravenously, once for 1 dose.No IV access, [...] in the CT contrast administration guidelines link. piperacillin-tazobactam 3.375 gram/50 mL in dextrose (iso-osmotic) Commonly known as: ZOSYN Inject 50 mL intravenously every 6 hours for 17 days. sodium chloride 0.9 % (flush) syringe Commonly known as: NORMAL SALINE FLUSH Inject 10 mL intravenously every 12 hours. For use with IV antibiotics and IR drains * This list has 1 medication(s) that are the same as other medications prescribed for you. Read the directions carefully, and ask your doctor or other care provider to review them with you. CONTINUE taking these medications Ascorbic Acid 100 mg tablet CALCIUM 600 ORAL carvedilol 6.25 mg tablet Commonly known as: COREG Glucosamine-Chondroitin 1,500-1,200 mg/30 mL Liqd ondansetron 4 mg tablet Commonly known as: ZOFRAN Take 1 tablet by mouth every 8 hours as needed for nausea/vomiting. predniSONE 5 mg tablet Commonly known as: DELTASONE rivaroxaban 20 mg tablet Commonly known as: XARELTO Take 1 tablet by mouth once daily. Patient should start on July 30, 2024. tamsulosin 0.4 mg Commonly known as: FLOMAX valsartan 80 mg tablet Commonly known as: DIOVAN ASK your doctor about these medications * iv contrast (will be provided with radiology test) CT ABD/PEL -Inject, intravenously, once for (more content not included)... Normal [facility] Magnesium SerPl-mCncon 08-18 Magnesium [Mass/Vol] 2.0 mg/dL Normal 1.7-2.3 [facility] Comment on above: Order Comment: Speci men Type: BLOOD SPECIMEN [facility] Address: [address] [place] [address] Performed By: #### 3 4528-0, 28384-4 #### [facility] CLIA [id number] [place] [id number] [facility] NURSING PROGon 08-18-2024 NURSING PROG HNO ID: [id number] Author: VALENCIA ALEXANDRA, ALEXUS Service: Nursing Author Type: Registered Nurse Type: Nursing Progress Note Filed: 08/18/2024 14:46 Note Text: Daily Note: 1445: discharge instructions reviewed and given to and patient. RADHA education provided. Verbalizes understanding. Normal [facility] Phosphate SerPl-ncon 08-18 Phosphate [Mass/Vol] 3.0 mg/dL Normal 2.7-4.8 [facility] Comment on above: Order Comment: Speci men Type: BLOOD SPECIMEN [facility] Address: [address] [place] [address] Performed By: #### 3 4528-0, 92022-2 #### [facility] CLIA [id number] ALLIED HEALTHon 08-17-2024 ALLIED [facility] HNO ID: [id number] Author: LINK WYATT Chaplain Service: Spiritual Care Author Type: Supervisor [employer] Type: Allied Health Filed: 08/17/2024 10:00 Note Text: SPIRITUAL CARE PROGRESS NOTE SERVICE DATE: 08/17/2024 SERVICE TIME: 40 I met this patient and prayed with him and gave him Holy Communion. I also empathized with him. To contact the Spiritual Care Department: Please call [phone]. SIGNATURE: Chaplain Anel PATIENT NAME: Mervat Grayson DATE: August 17, 2024 TIME: 9:59 AM PAGER/CONTACT #: [phone] Normal [facility] Basic metabolic 2000 panelon 08-17-2024 Anion gap [Moles/Vol] 8 mmol/L Normal 8-15 [facility] Comment on above: Order Comment: Speci men Type: BLOOD SPECIMEN [facility] Address: [address] [place] [address] Performed By: #### 2 4321-2 #### [facility] CLIA [id number] [address] [place] [address] [place] Calcium [Mass/Vol] 8.5 mg/dL Normal 8.5-10.2 [facility] Comment on above: Order Comment: Speci men Type: BLOOD SPECIMEN [facility] Address: [address] [place] [address] Performed By: #### 2 4321-2 #### [facility] CLIA [id number] [address] [place] [address] [place] Chloride [Moles/Vol] 103 mmol/L Normal 98-107 [facility] Comment on above: Order Comment: Speci men Type: BLOOD SPECIMEN [facility] Address: [address] [place] [address] Performed By: #### 2 4321-2 #### [facility] CLIA [id number] [address] [place] [address] [place] CO2 [Moles/Vol] 27 mmol/L Normal 22-30 [facility] Comment on above: Order Comment: Speci men Type: BLOOD SPECIMEN [facility] Address: [address] [place] [address] Performed By: #### 2 4321-2 #### [facility] CLIA [id number] [address] [place] [address] [place] Creatinine [Mass/Vol] 1.12 mg/dL Normal 0.73-1.22 [facility] Comment on above: Order Comment: Speci men Type: BLOOD SPECIMEN [facility] Address: [address] [place] [address] Performed By: #### 2 4321-2 #### [facility] CLIA [id number] [address] [place] [address] [place] Creatinine and Glomerular filtration rate.predicted panel (S/P/Bld) 70 mL/min/1.73m??? Normal >=60 [facility] Comment on above: Order Comment: Nazario brooks Type: BLOOD SPECIMEN [facility] Address: [address] [place] [address] Result Comment: Rebekah mated Glomerular Filtration Rate [...] actual GFR. Performed By: #### 2 4321-2 #### [facility] CLIA [id number] [place] [address] [place] Glucose [Mass/Vol] 112 mg/dL High 74-99 [facility] Comment on above: Order Comment: Nazario brooks Type: BLOOD SPECIMEN [facility] Address: [address] [place] [address] Result Comment: The [place] [employer] (ADA) provides guidance for cutoff values for fasting glucose and random glucose. The ADA defines fasting as no caloric intake for at least 8 hours. Fasting plasma glucose results between 100 to 125 mg/dL indicate increased risk for diabetes (prediabetes). Fasting plasma glucose results greater than or equal to 126 mg/dL meet the criteria for diagnosis of diabetes. In the absence of unequivocal hyperglycemia, results should be confirmed by repeat testing. In a patient with classic symptoms of hyperglycemia or hyperglycemic crisis, random plasma glucose results greater than or equal to 200 mg/dL meet the criteria for diagnosis of diabetes. Reference: Standards of Medical Care in Diabetes 2016, [place] [employer]. Diabetes Care. 2016.39(Suppl 1). Performed By: #### 2 4321-2 #### [facility] CLIA [id number] [address] [place] [address] [place] Potassium [Moles/Vol] 4.0 mmol/L Normal 3.7-5.1 [facility] Comment on above: Order Comment: Nazario brooks Type: BLOOD SPECIMEN [facility] Address: [address] [place] [address] Performed By: #### 2 4321-2 #### [facility] CLIA [id number] [address] [place] [address] [place] Sodium [Moles/Vol] 138 mmol/L Normal 136-144 [facility] Comment on above: Order Comment: Speci men Type: BLOOD SPECIMEN [facility] Address: [address] [place] [address] Performed By: #### 2 4321-2 #### [facility] CLIA [id number] [address] [place] [address] [place] Urea nitrogen [Mass/Vol] 12 mg/dL Normal 9-24 [facility] Comment on above: Order Comment: Speci men Type: BLOOD SPECIMEN [facility] Address: [address] [place] [address] Performed By: #### 2 4321-2 #### [facility] CLIA [id number] [address] [place] [address] [place] CBC panel Auto (Bld)on 08-17 Erythrocyte distribution width (RBC) [Ratio] 16.2 % High 11.5-15.0 [facility] Comment on above: Order Comment: Speci men Type: BLOOD SPECIMENOrdering Facility: [facility] Address: [address] [place] [address] Performed By: #### 6 00-7 #### [facility] CLIA [id number] [address] [place] [address] [place] Hematocrit (Bld) [Volume fraction] 25.7 % Low 39.0-51.0 [facility] Comment on above: Order Comment: Speci men Type: BLOOD SPECIMENOrdering Facility: [facility] Address: [address] [place] [address] Performed By: #### 6 00-7 #### [facility] CLIA [id number] [address] [place] [address] [place] Hemoglobin (Bld) [Mass/Vol] 7.9 g/dL Low 13.0-17.0 [facility] Comment on above: Order Comment: Speci men Type: BLOOD SPECIMENOrdering Facility: [facility] Address: [address] [place] [address] Performed By: #### 6 00-7 #### [facility] CLIA [id number] [address] [place] [address] [place] MCH (RBC) [Entitic mass] 29.2 pg Normal 26.0-34.0 [facility] Comment on above: Order Comment: Speci men Type: BLOOD SPECIMENOrdering Facility: [facility] Address: [address] [place] [address] Performed By: #### 6 00-7 #### [facility] CLIA [id number] [address] [place] [address] [place] MCHC (RBC) [Mass/Vol] 30.7 g/dL Normal 30.5-36.0 [facility] Comment on above: Order Comment: Speci men Type: BLOOD SPECIMENOrdering Facility: [facility] Address: [address] [place] [address] Performed By: #### 6 00-7 #### [facility] CLIA [id number] [address] [place] [address] [place] MCV (RBC) [Entitic vol] 94.8 fL Normal 80.0-100.0 [facility] Comment on above: Order Comment: Speci men Type: BLOOD SPECIMENOrdering Facility: [facility] Address: [address] [place] [address] Performed By: #### 6 00-7 #### [facility] CLIA [id number] [address] [place] [address] [place] Nucleated RBC (Bld) [#/Vol] 10*3/uL Normal <0.01 [facility] Comment on above: Order Comment: Speci men Type: BLOOD SPECIMENOrdering Facility: [facility] Address: [address] [place] [address] Performed By: #### 6 00-7 #### [facility] CLIA [id number] [address] [place] [address] [place] Platelet mean volume (Bld) [Entitic vol] 9.9 fL Normal 9.0-12.7 [facility] Comment on above: Order Comment: Speci men Type: BLOOD SPECIMENOrdering Facility: [facility] Address: [address] [place] [address] Performed By: #### 6 00-7 #### [facility] CLIA [id number] [address] [place] [address] [place] Platelets (Bld) [#/Vol] 543 10*3/uL High 150-400 [facility] Comment on above: Order Comment: Speci men Type: BLOOD SPECIMENOrdering Facility: [facility] Address: [address] [place] [address] Performed By: #### 6 00-7 #### [facility] CLIA [id number] [address] [place] [address] [place] RBC (Bld) [#/Vol] 2.71 10*6/uL Low 4.20-6.00 [facility] Comment on above: Order Comment: Speci men Type: BLOOD SPECIMENOrdering Facility: [facility] Address: [address] [place] [address] Performed By: #### 6 00-7 #### [facility] CLIA [id number] [address] [place] [address] [place] WBC (Bld) [#/Vol] 11.38 10*3/uL High 3.70-11.00 [facility] Comment on above: Order Comment: Speci men Type: BLOOD SPECIMENOrdering Facility: [facility] Address: [address] [place] [address] Performed By: #### 6 00-7 #### [facility] CLIA [id number] [address] [place] [address] [place] CONSULT PROGon 08-17-2024 CONSULT PROG HNO ID: [id number] Author: Maulik GONCALVES MD Service: Infectious Disease Author Type: Physician Type: Consult Progress Note Filed: 08/17/2024 18:21 Note Text: ID SERVICE CONSULT PROGRESS NOTE SERVICE DATE: 08/17/2024 SERVICE TIME: 6:16 PM Subjective INTERVAL HPI: Progress reviewed Current Facility-Administered Medications Medication Dose Route Frequency NaCl 0.9% iv flush bag 20 mL INTRAVENOUS PRN piperacillin-tazobactam iv piggyback 3.375 g in dextrose (iso-osmotic) 50 mL (ZOSYN) 3.375 g INTRAVENOUS q 6 H enoxaparin 40 mg injection (LOVENOX) 40 mg SUBCUTANEOUS q 24 HR acetaminophen 1,000 mg tab(s) (TYLENOL) 1,000 mg ORAL q 8 H oxyCODONE IR 2.5-5 mg tab(s) (ROXICODONE) 2.5-5 mg ORAL q 4 H PRN HYDROmorphone 0.2 mg injection (DILAUDID) 0.2 mg INTRAVENOUS q 4 H PRN ondansetron orally disintegrating 4 mg tab(s) (ZOFRAN ODT) 4 mg ORAL q 6 H PRN Or ondansetron (PF) 4 mg injection (ZOFRAN) 4 mg INTRAVENOUS q [address] 40 mg tab(s) (PROTONIX) 40 mg ORAL DAILY (6 AM) carvedilol 6.25 mg tab(s) (COREG) 6.25 mg ORAL BID w MEALS tamsulosin 0.4 mg cap(s) (FLOMAX) 0.4 mg ORAL DAILY predniSONE 5 mg tab(s) (DELTASONE) 5 mg ORAL AT BEDTIME sodium chloride 0.9 % (flush) 5-10 mL (BD POSIFLUSH) 5-10 mL OTHER q 12 H melatonin 9 mg tab(s) 9 mg ORAL AT BEDTIME PRN Objective PHYSICAL EXAM: Physical Exam Performed: BP 111/64 Pulse 68 Temp (Src) 98.4 (Oral) Resp 18 Ht 6' 2 (1.88m) Wt 238 lb 12.1 oz (108.3kg) SpO2 97% BMI 30.64 kg/(m2). O2 Therapy: Room Air DATA: Diagnostic tests reviewed for today's visit: IR aspirate is growing multiple organisms which includes E. coli Klebsiella pneumoniae and Enterococcus faecalis. Impression/Recommendati ons Principal Problem: Pelvic abscesses post right hemicolectomy for colonic perforation. 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 SIGNATURE: Maulik Goncalves MD PATIENT NAME: Mervat Grayson DATE: August 17, 2024 TIME: 6:16 PM PAGER: Normal [facility] Magnesium [Mass/Vol] 2.0 mg/dL Normal 1.7-2.3 [facility] Comment on above: Order Comment: Speci men Type: BLOOD SPECIMEN [facility] Address: [address] [place] [address] Performed By: #### 2 4321-2 #### [facility] CLIA [id number] [address] [place] [address] [place] Phosphate [facility] Phosphate [Mass/Vol] 3.1 mg/dL Normal 2.7-4.8 [facility] Comment on above: Order Comment: Speci men Type: BLOOD SPECIMEN [facility] Address: [address] [place] [address] Performed By: #### 2 4321-2 #### [facility] CLIA [id number] [address] [place] [address] [place] Basic metabolic 2000 panelon 08-16-2024 Anion gap [Moles/Vol] 10 mmol/L Normal 8-15 [facility] Comment on above: Order Comment: Speci men Type: BLOOD SPECIMENOrdering Facility: [facility] Address: [address] [place] [address] Performed By: #### 6 462-6 #### [facility] CLIA [id number] [address] [place] [address] [id number] [place] [address] [place] Calcium [Mass/Vol] 8.1 mg/dL Low 8.5-10.2 [facility] Comment on above: Order Comment: Speci men Type: BLOOD SPECIMENOrdering Facility: [facility] Address: [address] [place] [address] Performed By: #### 6 462-6 #### [facility] CLIA [id number] [address] [place] [address] [place] Chloride [Moles/Vol] 103 mmol/L Normal 98-107 [facility] Comment on above: Order Comment: Speci men Type: BLOOD SPECIMENOrdering Facility: [facility] Address: [address] [place] [address] Performed By: #### 6 462-6 #### [facility] CLIA [id number] [address] [place] [address] [place] CO2 [Moles/Vol] 26 mmol/L Normal 22-30 [facility] Comment on above: Order Comment: Speci men Type: BLOOD SPECIMENOrdering Facility: [facility] Address: [address] [place] [address] Performed By: #### 6 462-6 #### [facility] CLIA [id number] [address] [place] [address] [place] Creatinine [Mass/Vol] 1.05 mg/dL Normal 0.73-1.22 [facility] Comment on above: Order Comment: Speci men Type: BLOOD SPECIMENOrdering Facility: [facility] Address: [address] [place] [address] Performed By: #### 6 462-6 #### [facility] CLIA [id number] [address] [place] [address] [place] Creatinine and Glomerular filtration rate.predicted panel (S/P/Bld) 76 mL/min/1.73m??? Normal >=60 [facility] Comment on above: Order Comment: Speci men Type: BLOOD SPECIMENOrdering Facility: [facility] Address: [address] [place] [address] Result Comment: Rebekah mated Glomerular Filtration Rate [...] accurately reflect actual GFR. Performed By: #### 6 462-6 #### [facility] CLIA [id number] [address] [place] [address] [place] Glucose [Mass/Vol] 103 mg/dL High 74-99 [facility] Comment on above: Order Comment: Nazario brooks Type: BLOOD SPECIMENOrdering Facility: [facility] Address: [address] [place] [address] Result Comment: The [place] [employer] (ADA) provides guidance for cutoff values for fasting glucose and random glucose. The ADA defines fasting as no caloric intake for at least 8 hours. Fasting plasma glucose results between 100 to 125 mg/dL indicate increased risk for diabetes (prediabetes). Fasting plasma glucose results greater than or equal to 126 mg/dL meet the criteria for diagnosis of diabetes. In the absence of unequivocal hyperglycemia, results should be confirmed by repeat testing. In a patient with classic symptoms of hyperglycemia or hyperglycemic crisis, random plasma glucose results greater than or equal to 200 mg/dL meet the criteria for diagnosis of diabetes. Reference: Standards of Medical Care in Diabetes 2016, [place] [employer]. Diabetes Care. 2016.39(Suppl 1). Performed By: #### 6 462-6 #### [facility] CLIA [id number] [address] [place] [address] [place] Potassium [Moles/Vol] 4.0 mmol/L Normal 3.7-5.1 [facility] [facility] Comment on above: Order Comment: Nazario brooks Type: BLOOD SPECIMENOrdering Facility: [facility] Address: [address] [place] [address] Performed By: #### 6 462-6 #### [facility] CLIA [id number] [address] [place] [address] [place] Sodium [Moles/Vol] 139 mmol/L Normal 136-144 [facility] Comment on above: Order Comment: Speci men Type: BLOOD SPECIMENOrdering Facility: [facility] Address: [address] [place] [address] Performed By: #### 6 462-6 #### [facility] CLIA [id number] [address] [place] [address] [place] Urea nitrogen [Mass/Vol] 12 mg/dL Normal 9-24 [facility] Comment on above: Order Comment: Speci men Type: BLOOD SPECIMENOrdering Facility: [facility] Address: [address] [place] [address] Performed By: #### 6 462-6 #### [facility] CLIA [id number] [address] [place] [address] [place] CBC panel Auto (Bld)on 08-16 Erythrocyte distribution width (RBC) [Ratio] 16.4 % High 11.5-15.0 [facility] Comment on above: Order Comment: Speci men Type: BLOOD SPECIMENOrdering Facility: [facility] Address: [address] [place] [address] Performed By: #### 5 8410-2 ####[facility]ORYCLIA [id number] [place] [address] [place] Hematocrit (Bld) [Volume fraction] 24.0 % Low 39.0-51.0 [facility] Comment on above: Order Comment: Speci men Type: BLOOD SPECIMENOrdering Facility: [facility] Address: [address] [place] [address] Performed By: #### 5 8410-2 ####[facility]ATORYCLIA [id number] [place] [id number] [place] Hemoglobin (Bld) [Mass/Vol] 7.6 g/dL Low 13.0-17.0 [facility] Comment on above: Order Comment: Speci men Type: BLOOD SPECIMENOrdering Facility: [facility] Address: [address] [place] [address] Performed By: #### 5 8410-2 ####[facility]ORATORYCLIA [id number] [address] [place] MCH (RBC) [Entitic mass] 30.0 pg Normal 26.0-34.0 [facility] Comment on above: Order Comment: Speci men Type: BLOOD SPECIMENOrdering Facility: [facility] Address: [address] [place] [address] Performed By: #### 5 8410-2 ####[facility] LABORATORYCLIA [id number] [place] [address] [place] MCHC (RBC) [Mass/Vol] 31.7 g/dL Normal 30.5-36.0 [facility] Comment on above: Order Comment: Speci men Type: BLOOD SPECIMENOrdering Facility: [facility] Address: [address] [place] [address] Performed By: #### 5 8410-2 ####[facility] LABORATORYCLIA [id number] [address] [place] MCV (RBC) [Entitic vol] 94.9 fL Normal 80.0-100.0 [facility] Comment on above: Order Comment: Speci men Type: BLOOD SPECIMENOrdering Facility: [facility] Address: [address] [place] [address] Performed By: #### 5 8410-2 ####[facility] LABORATORYCLIA [id number] [address] [place] Nucleated RBC (Bld) [#/Vol] 10*3/uL Normal <0.01 [facility] Comment on above: Order Comment: Speci men Type: BLOOD SPECIMENOrdering Facility: [facility] Address: [address] [place] [address] Performed By: #### 5 8410-2 ####[facility] LABORATORYCLIA [id number] [address] [place] Platelet mean volume (Bld) [Entitic vol] 10.0 fL Normal 9.0-12.7 [facility] Comment on above: Order Comment: Speci men Type: BLOOD SPECIMENOrdering Facility: [facility] Address: [address] [place] [address] Performed By: #### 5 8410-2 ####[facility]ATORYCLIA [id number] [place] [id number] [place] Platelets (Bld) [#/Vol] 520 10*3/uL High 150-400 [facility] Comment on above: Order Comment: Speci men Type: BLOOD SPECIMENOrdering Facility: [facility] Address: [address] [place] [address] Performed By: #### 5 8410-2 ####[facility]ATORYCLIA [id number] [place] [address] [place] RBC (Bld) [#/Vol] 2.53 10*6/uL Low 4.20-6.00 [facility] Comment on above: Order Comment: Speci men Type: BLOOD SPECIMENOrdering Facility: [facility] Address: [address] [place] [address] Performed By: #### 5 8410-2 ####[facility]ORATORYCLIA [id number] [place] [address] [place] WBC (Bld) [#/Vol] 12.82 10*3/uL High 3.70-11.00 [facility] Comment on above: Order Comment: Speci men Type: BLOOD SPECIMENOrdering Facility: [facility] Address: [address] [place] [address] Performed By: #### 5 8410-2 ####[facility]ATORYCLIA [id number] [place] [id number] [place] Magnesium SerPl-mCncon 08-16 Magnesium [Mass/Vol] 2.0 mg/dL Normal 1.7-2.3 [facility] Comment on above: Order Comment: Speci men Type: BLOOD SPECIMENOrdering Facility: [facility] Address: [address] [place] [address] Performed By: #### 6 462-6 #### [facility] CLIA [id number] [address] [place] [address] [place] Phosphate SerPl-mCncon 08-16 Phosphate [Mass/Vol] 3.0 mg/dL Normal 2.7-4.8 [facility] Comment on above: Order Comment: Speci men Type: BLOOD SPECIMENOrdering Facility: [facility] Address: [facility] [place] [address] Performed By: #### 1 9123-9, 2777-1, 64919-5 ####[facility]ORATORYCLIA [id number] [place] [id number] [place] THERAPY NTon 08-16-2024 THERAPY NT HNO ID: [id number] Author: JOANNE FRANCOIS, PT Service: Physical Therapy Author Type: Physical Therapist Type: Therapy (PT/OT/Speech/Resp) Filed: 08/16/2024 11:09 Note Text: Physical Therapy Evaluation Summary SERVICE DATE: 08/16/2024 SERVICE TIME: 1044 to 1107 ROOM: [place] [address] PT 6 Clicks Score: 24 DISCHARGE RECOMMENDATIONS Home ASSESSMENT Response to Therapy Interventions: Good Participation in Activities PRECAUTIONS Abdominal, Bed/Chair Alarm, Diet Restrictions, Fall Risk, Lines/Tubes/Drains, Other: See Comments High Fall Risk, NPO, Refer to [facility] CURRENT HOSPITAL COURSE Abdominal Pain, Post-Op Intra-Abdominal Fluid Collection Following Rt Shelia-Colectomy 07/23/24, S/P Urgent Bilateral Abscess Drainage Catheter Placement 08/14/24 Relevant Past Medical History: Rectal CA, S/P Pelvic Radiation, PE On Xarelto, RA, Non-Ischemic Cardiomyopathy, S/P Rt Shelia-Colectomy Complicated By Ileus 07/23/24, refer to [facility] HOME LIVING Patient Lives With: Spouse, Other: See Comment Comments: one level home in [place], [place] Assistance Available: PRN, Other: See Comment Comments: Spouse returning home today from out of the country, and five children in area for support Entry To Home: Stairs, With Rail, Ramp Number Of Stairs Into Home: 3 Number Of Stairs To Bed/Bath: First floor Tub/Shower Type: WIS Laundry: 1st level, Spouse completes Equipment Owned: Shower Chair, Grab Bars- Shower, Hand Held Shower, Walker- Wheeled, Director Of Admissions, Elevated Toilet Seat PRIOR FUNCTIONAL LEVEL Within Functional Limits, Required Assistance Assistance Required With: Shopping, Laundry, Cleaning, Meals Per Pt, he was independent with ADL's, and his spouse completed all IADL's. Pt has five children in the area for support. SUBJECTIVE Pt was pleasant and agreeable to PT session. THERAPY DIAGNOSIS Reduced mobility-other TREATMENT INTERVENTIONS Evaluation, Gait Training (84879) Timed Code Treatment (minutes): 8 Skilled Treatment Time (minutes): 23 TRAINING AND EDUCATION PROVIDED Assistive Device Use, Bed Mobility, Benefits of In-Hospital Mobility, Discharge Planning, Expected Functional Level, Gait Pattern, Reduction of Deviations, Role of Physical Therapy, Stair Navigation, Transfers THERAPEUTIC SKILLS USED Activity Dosing, Cues for Sequencing/Proper Technique for Activity FUNCTIONAL STATUS Bed Mobility Supine To Sit: Supervision Sit to Supine: Supervision Transfers Sit To Stand: Stand By Assistance Stand To Sit: Stand By Assistance Bed to Chair Gait Stand By Assistance Gait Device: Wheeled Walker General Deviations/Observations : (Steady gait pattern with no LOB noted.) Gait Distance (feet): 500 Stairs Stand By Assistance Stairs Device: Rail (Reciprocal pattern.) Number of Stairs: 4 GOALS Patient will demonstrate understanding of importance of mobility during hospital stay and resolve all functional needs identified. Rehab Potential: Excellent Progress Toward Goals: Progressing as expected PLAN PT Frequency: Discontinue Therapy Services Reasons Therapy Services Discontinued: Goals met Treatment Interventions: Education SIGNATURE: Joanne Francois PT PATIENT NAME: Mervat Grayson DATE: August 16, 2024 TIME: 11:09 AM Normal [facility] Basic metabolic 2000 panelon 08-15-2024 Anion gap [Moles/Vol] 10 mmol/L Normal 8-15 [facility] Comment on above: Order Comment: Speci men Type: BLOOD SPECIMENOrdering Facility: [facility] Address: [address] [place] [address] Performed By: #### 6 00-7 #### [facility] CLIA [id number] [address] [place] [address] [place] Calcium [Mass/Vol] 8.1 mg/dL Low 8.5-10.2 [facility] Comment on above: Order Comment: Speci men Type: BLOOD SPECIMENOrdering Facility: [facility] Address: [address] [place] [address] Performed By: #### 6 00-7 #### [facility] CLIA [id number] [address] [place] [address] [place] Chloride [Moles/Vol] 103 mmol/L Normal 98-107 [facility] Comment on above: Order Comment: Speci men Type: BLOOD SPECIMENOrdering Facility: [facility] Address: [address] [place] [address] Performed By: #### 6 00-7 #### [facility] CLIA [id number] [address] [place] [address] [place] CO2 [Moles/Vol] 27 mmol/L Normal 22-30 [facility] Comment on above: Order Comment: Speci men Type: BLOOD SPECIMENOrdering Facility: [facility] Address: [address] [place] [address] Performed By: #### 6 00-7 #### [facility] CLIA [id number] [address] [place] [address] [place] Creatinine [Mass/Vol] 1.00 mg/dL Normal 0.73-1.22 [facility] Comment on above: Order Comment: Speci men Type: BLOOD SPECIMENOrdering Facility: [facility] Address: [address] [place] [address] Performed By: #### 6 00-7 #### [facility] CLIA [id number] [address] [place] [address] [place] Creatinine and Glomerular filtration rate.predicted panel (S/P/Bld) 80 mL/min/1.73m??? Normal >=60 [facility] Comment on above: Order Comment: Speci men Type: BLOOD SPECIMENOrdering Facility: [facility] Address: [address] [place] [address] Result Comment: Rebekah mated Glomerular Filtration Rate [...] accurately reflect actual GFR. Performed By: #### 6 00-7 #### [facility] CLIA [id number] [address] [place] [address] [place] Glucose [Mass/Vol] 92 mg/dL Normal 74-99 [facility] Comment on above: Order Comment: Speci men Type: BLOOD SPECIMENOrdering Facility: [facility] Address: [address] [place] [address] Result Comment: The [place] [employer] (ADA) provides guidance for cutoff values for fasting glucose and random glucose. The ADA defines fasting as no caloric intake for at least 8 hours. Fasting plasma glucose results between 100 to 125 mg/dL indicate increased risk for diabetes (prediabetes). Fasting plasma glucose results greater than or equal to 126 mg/dL meet the criteria for diagnosis of diabetes. In the absence of unequivocal hyperglycemia, results should be confirmed by repeat testing. In a patient with classic symptoms of hyperglycemia or hyperglycemic crisis, random plasma glucose results greater than or equal to 200 mg/dL meet the criteria for diagnosis of diabetes. Reference: Standards of Medical Care in Diabetes 2016, [place] [employer]. Diabetes Care. 2016.39(Suppl 1). Performed By: #### 6 00-7 #### [facility] CLIA [id number] [address] [place] [address] [place] Potassium [Moles/Vol] 3.5 mmol/L Low 3.7-5.1 [facility] Comment on above: Order Comment: Speci men Type: BLOOD SPECIMENOrdering Facility: [facility] Address: [address] [place] [address] Performed By: #### 6 00-7 #### [facility] CLIA [id number] [address] [place], [place] [address] [place] Sodium [Moles/Vol] 140 mmol/L Normal 136-144 [facility] Comment on above: Order Comment: Speci men Type: BLOOD SPECIMENOrdering Facility: [facility] Address: [address] [place] [address] Performed By: #### 6 00-7 #### [facility] CLIA [id number] [address] [place] [address] [place] Urea nitrogen [Mass/Vol] 12 mg/dL Normal 9-24 [facility] Comment on above: Order Comment: Speci men Type: BLOOD SPECIMENOrdering Facility: [facility] Address: [address] [place] [address] Performed By: #### 6 00-7 #### [facility] CLIA [id number] [address] [place] [address] [place] CBC panel Auto (Bld)on 08-15 Erythrocyte distribution width (RBC) [Ratio] 16.1 % High 11.5-15.0 [facility] Comment on above: Order Comment: Speci men Type: BLOOD SPECIMEN [facility] Address: [address] [place] [address] Performed By: #### 3 4528-0, 63651-6 #### [facility] CLIA [id number] [address] [place] [address] [place] Hematocrit (Bld) [Volume fraction] 22.9 % Low 39.0-51.0 [facility] Comment on above: Order Comment: Speci men Type: BLOOD SPECIMEN [facility] Address: [address] [place] [address] Performed By: #### 3 4528-0, 62686-2 #### [facility] CLIA [id number] [address] [place] [address] [place] Hemoglobin (Bld) [Mass/Vol] 7.4 g/dL Low 13.0-17.0 [facility] Comment on above: Order Comment: Speci men Type: BLOOD SPECIMEN [facility] Address: [address] [place] [address] Performed By: #### 3 4528-0, 47761-7 #### [facility] CLIA [id number] [address] [place] [address] [place] [facility] MCH (RBC) [Entitic mass] 30.1 pg Normal 26.0-34.0 [facility] Comment on above: Order Comment: Speci men Type: BLOOD SPECIMEN [facility] Address: [address] [place] [address] Performed By: #### 3 4528-0, 27057-5 #### [facility] CLIA [id number] [address] [place] [address] [place] MCHC (RBC) [Mass/Vol] 32.3 g/dL Normal 30.5-36.0 [facility] Comment on above: Order Comment: Speci men Type: BLOOD SPECIMEN [facility] Address: [address] [place] [address] Performed By: #### 3 4528-0, 19110-6 #### [facility] CLIA [id number] [address] [place] [address] [place] MCV (RBC) [Entitic vol] 93.1 fL Normal 80.0-100.0 [facility] Comment on above: Order Comment: Speci men Type: BLOOD SPECIMEN [facility] Address: [address] [place] [address] Performed By: #### 3 4528-0, 80565-6 #### [facility] CLIA [id number] [address] [place] [address] [place] Nucleated RBC (Bld) [#/Vol] 10*3/uL Normal <0.01 [facility] Comment on above: Order Comment: Speci men Type: BLOOD SPECIMEN [facility] Address: [address] [place] [address] Performed By: #### 3 4528-0, 42885-2 #### [facility] CLIA [id number] [address] [place] [address] [place] Platelet mean volume (Bld) [Entitic vol] 9.5 fL Normal 9.0-12.7 [facility] Comment on above: Order Comment: Speci men Type: BLOOD SPECIMEN [facility] Address: [address] [place] [address] Performed By: #### 3 4528-0, 68559-5 #### [facility] CLIA [id number] [place] Platelets (Bld) [#/Vol] 476 10*3/uL High 150-400 [facility] Comment on above: Order Comment: Speci men Type: BLOOD SPECIMEN [facility] Address: [address] [place] [address] Performed By: #### 3 4528-0, 88843-1 #### [facility] CLIA [id number] [address] [place] [address] [place] RBC (Bld) [#/Vol] 2.46 10*6/uL Low 4.20-6.00 [facility] Comment on above: Order Comment: Speci men Type: BLOOD SPECIMEN [facility] Address: [address] [place] [address] Performed By: #### 3 4528-0, 65885-9 #### [facility] CLIA [id number] [address] [place] [address] [place] WBC (Bld) [#/Vol] 13.47 10*3/uL High 3.70-11.00 [facility] Comment on above: Order Comment: Speci men Type: BLOOD SPECIMEN [facility] Address: [address] [place] [address] Performed By: #### 3 4528-0, 50114-3 #### [facility] CLIA [id number] [place] CONSULTon 08-15-2024 CONSULT HNO ID: [id number] Author: Maulik GONCALVES MD Service: Infectious Disease Author Type: Physician Type: Consults Filed: 08/15/2024 12:21 Note Text: BRIEF CONSULT NOTE SERVICE DATE: 08/15/2024 SERVICE TIME: 12:20 PM Patient seen. Full consult dictated. RECOMMENDATIONS/PLAN Principal Problem: Pelvic abscesses post right hemicolectomy for colonic perforation. Post placement of drains by IR Microbiology results are pending Will continue intravenous Zosyn. SIGNATURE: Maulik Goncalves MD PATIENT NAME: Mervat Grayson DATE: August 15, 2024 TIME: 12:20 PM Normal [facility] CONSULT HNO ID: [id number] Author: Maulik GONCALVES MD Service: Infectious Disease Author Type: Physician Type: Consults Filed: 08/17/2024 13:05 Note Text: [facility] - Consultation MERVAT GRAYSON : 1950 AGE: 73 SEX: M CSN: [id number] [facility]: Surgical LOCATION: [facility] ATTENDING PHYSICIAN: DEBORAH NORMAN DATE OF SERVICE: 08/15/2024 TIME OF SERVICE: 12:00 PM CONSULTING PHYSICIAN: Freedom Goncalves M.D. REQUESTED BY: Dr. Deborah Norman. HISTORY OF PRESENT ILLNESS: This is a very pleasant 73-year-old male who lives in [place], [place]. Apparently, he has history of PE and also rheumatoid arthritis. He was diagnosed with rectal cancer in 2021, underwent chemoradiation which apparently completed sometime in 10/2022 and had been doing well and underwent a surveillance colonoscopy on 07/21, apparently subsequently developed cecal perforation and he was admitted to [facility] on 07/22. He underwent laparoscopic right colectomy and umbilical hernia repair on 07/22. Initial postop course was complicated by ileus, but he improved and was discharged on 07/29. Apparently, he had seen [facility] and had complained of abdominal pain and having loose stools; afraid to eat because every time he ate, he had the urge to go to the bathroom. He had some chills, but patient does not say much about the chills here. In view of this, a CT of the abdomen and pelvis was requested and a stool for C difficile was also requested. CT of the abdomen and pelvis obtained on 08/13 was reported as revealing 3 fluid collections in the pelvis with enhancing dos santos. Apparently, the right lower quadrant fluid collection was immediately adjacent to the ileocolonic anastomosis and suspicious for anastomotic leak. The patient was advised to come to the emergency room, and after admission, the interventional radiologist was requested to place drains, and he has undergone yesterday evening with uneventful placement of bilateral lower quadrant retroperitoneal abscess drains. He has been started on intravenous Zosyn and we have been asked to see this patient in consultation. PAST MEDICAL HISTORY: Essentially as noted above. SOCIAL HISTORY: He is not a smoker. FAMILY HISTORY: No other significant sick contacts. REVIEW OF SYSTEMS: Essentially as noted above. The patient states that he had 1 loose bowel movement this morning. LABORATORY DATA: Since admission has revealed persistent elevation of white cell count while in the hospital between 06/22 through 07/29. His white cell count was 11.0 on 07/29. On 08/13, his white cell count was noted to be 13.6, today it is 13.4. He is anemic with a hemoglobin of 7.4 and hematocrit of 22.9. He has elevated platelet count on admission to 634, has come down to 476k today. Chemistry reveals mild hypokalemia. His albumin is 2.8. MICROBIOLOGY RESULTS: Reviewed. Two sets of blood cultures were obtained last evening, they are pending. The 2 specimens have been submitted to microbiology from . Both specimens and Gram stain have revealed gram-negative bacilli, gram- positive cocci, and gram-positive bacilli. Cultures are pending. IMAGING STUDIES: I reviewed the CT of the abdomen and pelvis, which was obtained on admission. PHYSICAL EXAMINATION: Vital Signs: Reveals that the patient has been afebrile since admission to the hospital. His current vital signs reveal a temperature of 36.8, pulse rate of 73, blood pressure of 125/71. He is on room air, saturating reasonably well. General: He is awake, alert, and oriented. Heart: Reveals S1 and S2 to be normal. Lungs: Clear. Abdomen: Soft, distended. No significant tenderness. The right sided drain with a Carlos-Garcia bulb shows a thick, somewhat bloody fluid. The left quadrant drain has lesser thickness, but does appears somewhat bloody. Rest of the examination as noted in the chart. IMPRESSION: This is a 73-year-old male with a diagnosis of rectal cancer, had undergone laparoscopic right hemicolectomy on 07/22 for colon perforation, status post colonoscopy, presents with pelvic abscesses and a concern for anastomotic leak. He has undergone placement of 2 drains by the IR. At present, I will continue intravenous Zosyn and await the results of the cultures. We thank you very much for allowing us to participate in taking care of this patient. We will follow the patient as needed by you. Freedom Goncalves M.D. Infectious Disease [id number] /[id number] Normal [facility] Magnesium SerPl-mCncon 08-15 Magnesium [Mass/Vol] 2.0 mg/dL Normal 1.7-2.3 [facility] Comment on above: Order Comment: Speci men Type: BLOOD SPECIMENOrdering Facility: [facility] Address: [address] [place] [address] Performed By: #### 6 00-7 #### [facility] CLIA [id number] [address] [place] [address] [place] Phosphate SerPl-mCncon 08-15 Phosphate [Mass/Vol] 3.9 mg/dL Normal 2.7-4.8 [facility] Comment on above: Order Comment: Speci men Type: BLOOD SPECIMENOrdering Facility: [facility] Address: [address] [place] [address] Performed By: #### 6 00-7 #### [facility] CLIA [id number] [address] [place] [address] [place] THERAPY NTon 08-15-2024 THERAPY NT HNO ID: [id number] Author: REJI TAM OTR/L Service: Occupational Therapy Author Type: Occupational Therapist Type: Therapy (PT/OT/Speech/Resp) Filed: 08/15/2024 14:00 Note Text: Occupational Therapy Evaluation Summary SERVICE DATE: 08/15/2024 SERVICE TIME: 1234 to 1303 ROOM: [place] [address] OT 6 Clicks Score: 19 Abdominal Pain, Post-Op Intra-Abdominal Fluid Collection Following Rt Shelia-Colectomy 07/23/24, S/P Urgent Bilateral Abscess Drainage Catheter Placement 08/14/24 DISCHARGE RECOMMENDATIONS Home Pt has adequate support and social structure for reasonably safe discharge home at current level. Anticipated Discharge Needs: Physical Assist at Home, Equipment Physical Assist at Home for: Transportation, Shopping, Laundry, Cleaning Recommended Discharge Equipment: ADL Kit, Hand Held Shower, Wheeled Walker, Shower Chair ASSESSMENT Response to Therapy Interventions: Good Participation in Activities Pt plans to return home with spouse support PRECAUTIONS Abdominal, Bed/Chair Alarm, Diet Restrictions, Fall Risk, Lines/Tubes/Drains, Other: See Comments High Fall Risk, NPO, Refer to [facility] CURRENT HOSPITAL COURSE Abdominal Pain, Post-Op Intra-Abdominal Fluid Collection Following Rt Shelia-Colectomy 07/23/24, S/P Urgent Bilateral Abscess Drainage Catheter Placement 08/14/24 Relevant Past Medical History: Rectal CA, S/P Pelvic Radiation, PE On Xarelto, RA, Non-Ischemic Cardiomyopathy, S/P Rt Shelia-Colectomy Complicated By Ileus 07/23/24, refer to [facility] HOME LIVING Patient Lives With: Spouse, Other: See Comment Comments: one level home in [place], [place] Assistance Available: PRN, Other: See Comment Comments: Spouse returning home today from [place] of the country, and five children in area for support Entry To Home: Stairs, With Rail Number Of Stairs Into Home: 0 Tub/Shower Type: WIS Laundry: 1st level, Spouse completes Equipment Owned: Shower Chair, Grab Bars- Shower, Hand Held Shower, Walker- Wheeled, Director Of Admissions, Elevated Toilet Seat PRIOR FUNCTIONAL LEVEL Within Functional Limits, Required Assistance Assistance Required With: Shopping, Laundry, Cleaning, Meals Per Pt, he was independent with ADL's, and his spouse completed all IADL's. Pt has five children in the area for support. Baseline Cognition: Oriented to self, Oriented to place, Oriented to time, Oriented to situation SUBJECTIVE I am really tired COGNITION Responsiveness: Alert, Awake Follows Commands: 3-step Commands THERAPY DIAGNOSIS Reduced mobility-other, Decreased activities of daily living (ADL), Muscle Weakness (generalized) TREATMENT INTERVENTIONS Evaluation, Self Retirement Management (53848) Timed Code Treatment (minutes): 14 Skilled Treatment Time (minutes): 29 TRAINING AND EDUCATION PROVIDED Activity Adaptation/Compensatory Strategies, Adaptive Equipment/DME, Assistive Device Use, Bed Mobility, Benefits of In-Hospital Mobility, Coping Skills/Resiliency, Discharge Planning, Disease Specific Education, Energy Conservation, Expected Functional Level, Insight into Deficits, Life Roles/Routines/Habits, Positioning, Precautions/Restriction s, Role of Occupational Therapy, Safety/Judgment, Transfer - Bed to Chair, Transfer - Sit to Stand, Treatment Protocol Pt educated with role/benefit of OT services, discharge options, fall precautions, room, transfer, and walker safety, recommended DME/AE, and provided printed material. Pt completed safe functional ambulation short distance in the room with WW for support. Pt instructed with deep breathing techniques while seated at EOB, and educated with energy conservation techniques and pacing self as pertaining to ADL's. Pt educated regarding fall precautions in room, and requested Pt call staff for any assist. Pt verbalized understanding of all precautions. THERAPEUTIC SKILLS USED Activity Dosing, Cues for Sequencing/Proper Technique for Activity, Cuing Tactile, Cuing Verbal, Cuing Visual, Management of Critical Lines, Tubes and/or Drains, Movement Facilitation, Physical Assist, Teach-Back for Education, Therapeutic Use of Self FUNCTIONAL STATUS Activities of Daily Living Assist Level Additional Information Feeding Modified Independent, Additional Information currently NPO Grooming Stand By Assistance Bathing Upper Body Stand By Assistance Bathing Lower Body Moderate Assistance Dressing Upper Body Stand By Assistance Dressing Lower Body Moderate Assistance Toileting Minimal Assistance Mobility Assist Level Additional Information Bed Mobility Supine To Sit: Supervision Sit To Supine: Moderate Assistance, Additional Information to lift LE's into the bed Sit to Stand Contact Guard Assistance Stand to Sit Contact Guard Assistance Bed to Chair Toilet/Commode Shower Functional Mobility Contact Guard Assistance Functional Mobility Device: Wheeled Walker GOALS Patient will demonstrate progress with self-care, cogn (more content not included)... Normal [facility] ALLIED HEALTH 08-14-2024 ALLIED HEALTH HNO ID: [id number] Author: ENE CALABRESE TECHNOLOGIST Service: ? Author Type: Technologist Type: Allied Health Filed: 08/14/2024 17:26 Note Text: Radiology Service Progress Note PATIENT NAME: Mervat Grayson DATE OF SERVICE: August 14, 2024 TIME: 5:26 PM PATIENT IDENTITY VERIFICATION COMPLETED USING TWO (2) IDENTIFIERS: Name and Date of confirmed by patient verbally. FALL SCREENING: Has the patient had 2 falls in the last year or 1 fall with injury or currently using an Ambulatory Assistive Device (Walker, Cane, Wheelchair, Crutches, etc.)? Inpatient: Screened on floor PATIENT GENDER DATA: Male PATIENT RELEVANT IMPLANT DATA REVIEWED: Not Applicable PATIENT PRESENTS WITH AN IMPLANTABLE OR ATTACHED DRAINAGE ENGINEER: No RADIOLOGY DEPARTMENT: Biopsy PERIPHERAL IV DATA: Not applicable SIGNED BY: Ene Calabrese TECHNOLOGIST August 14, 2024 5:26 PM [facility] BRIEF OP NOTon 08-14-2024 BRIEF OP NOT HNO ID: [id number] Author: OSIRIS ESCOBAR MD Service: Interventional Radiology Author Type: Physician Type: Brief Op Note Filed: 08/14/2024 18:05 Note Text: BRIEF OPERATIVE / PROCEDURE NOTE LOG ID: [id number] SURGERY/PROCEDURE DATE: 08/14/2024 INCISION/PROCEDURE START TIME: 5:23 PM INCISION CLOSE/PROCEDURE END TIME: 5:50 PM SURGEON(S)/PROCEDURALIS T(S) AND RAIL OPERATIONS CONTROLLER(S): Surgeons and Role: * Osiris Escobar MD - Primary No Additional Staff SURGERY/PROCEDURE(S): Bilateral abscess drainage catheter placement ANESTHESIA: Procedural Sedation FINDINGS: Uneventful placement of bilateral lower quadrant, retroperitoneal abscess drains. Flush Qshift. Record output. Bulb suction. ESTIMATED BLOOD LOSS: <10 mls SPECIMENS: Microbiology x 2 COMPLICATIONS: None DRAINS: 10F Uresil x 2 CLOSURE TECHNIQUE: Primary PRE-OP/PRE-PROCEDURE DIAGNOSIS: Post-operative abscesses POST-OP/POST-PROCEDURE DIAGNOSIS: Same as Preop SIGNATURE: Osiris Escobar MD PATIENT NAME: Mervat Grayson DATE: August 14, 2024 TIME: 6:03 PM [facility] Bacteria Bld Culton 08-14-20 24 Bacteria identified Cx Nom (Bld) CULTURE, BLOOD: No growth 5 days [facility] Comment on above: Performed By: #### 6 00-7 #### [facility] CLIA [id number] [address] [place] [address] [place] Bacteria identified Cx Nom (Bld) CULTURE, BLOOD: No growth 5 days [facility] Comment on above: Performed By: #### 6 00-7 #### [facility] CLIA [id number] [address] [place] [address] [place] Bacteria Wnd Culton 08-14-20 Bacteria identified Cx Nom (Wound) ORGANISM ID: 1 Many Escherichia coli Refer to specimen collected on 08/14/2024 at 1703 ([id number]) ORGANISM ID: 2 Moderate Klebsiella pneumoniae Refer to specimen collected on 08/14/2024 at 1703 ([id number]) ORGANISM ID: 3 Few Enterococcus faecalis No susceptibility testing done. Call lab within 72 hours to initiate work-up if clinically indicated. Cephalosporins, clindamycin, and TMP-SMX are not effective for the treatment of enterococcal infections. GRAM STAIN: Rare Gram positive cocci Rare Gram negative bacilli Rare Gram positive bacilli No Polymorphonuclear Leukocytes Abnormal [facility] Comment on above: Performed By: #### 6 462-6 #### [facility] CLIA [id number] [address] [place], [place] [address] [place] [address] [place] Bacteria identified Cx Nom (Wound) ORGANISM ID: 1 Many Escherichia coli ORGANISM ID: 2 Few Klebsiella pneumoniae GRAM STAIN: Few Gram negative bacilli Rare Gram positive cocci Rare Gram positive bacilli Moderate Polymorphonuclear leukocytes ORGANISM ID: 1 (ESCHERICHIA COLI) ANTIBIOTIC INTERPRETATION KAI STATUS REFERENCE RANGE Ampicillin S <=2 F Susceptible <=8 , Intermediate >8 , Resistant >16 Ceftriaxone S <=1 F Susceptible <=1 , Intermediate >1 , Resistant >=4 Cefepime S <=1 F Susceptible <=2 , Susceptible-Dose Dependent >2 , Resistant >=16 Ertapenem S <=0.5 F Susceptible <=0.5 , Intermediate >.5 , Resistant >1 Meropenem S <=0.25 F Susceptible <=1 , Intermediate >1 , Resistant >2 Ampicillin/Sulbact S <=2 F Susceptible <=8 , Intermediate >8 , Resistant >16 Piperacillin/Tazobac S <=4 F Susceptible <16 , Susceptible-Dose Dependent >=16 , Resistant >=32 Gentamicin S <=1 F Susceptible <=2 , Intermediate >2 , Resistant >=8 Tobramycin S <=1 F Susceptible <4 , Intermediate >=4 , Resistant >=8 Trimeth sulfameth S <=20 F Susceptible <=40 , Resistant >40 Ciprofloxacin S <=0.25 F Susceptible <0.5 , Intermediate >=.5 , Resistant >=1 ORGANISM ID: 2 (KLEBSIELLA PNEUMONIAE) ANTIBIOTIC INTERPRETATION KAI STATUS REFERENCE RANGE Ampicillin R F Ceftriaxone S <=1 F Susceptible <=1 , Intermediate >1 , Resistant >=4 Cefepime S <=1 F Susceptible <=2 , Susceptible-Dose Dependent >2 , Resistant >=16 Ertapenem S <=0.5 F Susceptible <=0.5 , Intermediate >.5 , Resistant >1 Meropenem S <=0.25 F Susceptible <=1 , Intermediate >1 , Resistant >2 Ampicillin/Sulbact S 4 F Susceptible <=8 , Intermediate >8 , Resistant >16 Piperacillin/Tazobac S <=4 F Susceptible <16 , Susceptible-Dose Dependent >=16 , Resistant >=32 Gentamicin S <=1 F Susceptible <=2 , Intermediate >2 , Resistant >=8 Tobramycin S <=1 F Susceptible <4 , Intermediate >=4 , Resistant >=8 Trimeth sulfameth S <=20 F Susceptible <=40 , Resistant >40 Ciprofloxacin S <=0.25 F Susceptible <0.5 , Intermediate >=.5 , Resistant >=1 Abnormal [facility] Comment on above: Performed By: #### 6 462-6 #### [facility] CLIA [id number] [facility] [id number] [address] [place] CBC W Auto Differential pane l (Bld)on 08-14-2024 Basophils (Bld) [#/Vol] 0.04 10*3/uL Normal <0.11 [facility] Comment on above: Order Comment: Speci men Type: BLOOD SPECIMEN Ordering Facility: [facility] Address: [address] [place] [address] Performed By: #### 3 4528-0, 73525-4 #### [facility] CLIA [id number] [address] [place] [address] [place] Basophils/100 WBC (Bld) 0.3 % Normal [facility] Comment on above: Order Comment: Speci men Type: BLOOD SPECIMEN Ordering Facility: [facility] Address: [address] [place] [address] Performed By: #### 3 4528-0, 29824-4 #### [facility] CLIA [id number] [address] [place] [address] [place] Differential cell count method Nom (Bld) Auto Normal [facility] Comment on above: Order Comment: Speci men Type: BLOOD SPECIMEN Ordering Facility: [facility] Address: [address] [place] [address] Performed By: #### 3 4528-0, 76112-5 #### [facility] CLIA [id number] [address] [place] [address] [place] Eosinophils (Bld) [#/Vol] 0.14 10*3/uL Normal <0.46 [facility] Comment on above: Order Comment: Speci men Type: BLOOD SPECIMEN Ordering Facility: [facility] Address: [address] [place] [address] Performed By: #### 3 4528-0, 96309-5 #### [facility] CLIA [id number] [address] [place] [address] [place] Eosinophils/100 WBC (Bld) 1.0 % Normal [facility] Comment on above: Order Comment: Speci men Type: BLOOD SPECIMEN Ordering Facility: [facility] Address: [address] [place] [address] Performed By: #### 3 4528-0, 44866-7 #### [facility] CLIA [id number] [address] [place] [address] [place] Erythrocyte distribution width (RBC) [Ratio] 16.6 % High 11.5-15.0 [facility] Comment on above: Order Comment: Speci men Type: BLOOD SPECIMEN Ordering Facility: [facility] Address: [address] [place] [address] Performed By: #### 3 4528-0, 74430-3 #### [facility] CLIA [id number] [address] [place] [address] [place] Hematocrit (Bld) [Volume fraction] 21.8 % Low 39.0-51.0 [facility] Comment on above: Order Comment: Speci men Type: BLOOD SPECIMEN Ordering Facility: [facility] Address: [address] [place] [address] Performed By: #### 3 4528-0, 89397-0 #### [facility] CLIA [id number] [address] [place] [address] [place] Hemoglobin (Bld) [Mass/Vol] 6.9 g/dL Low 13.0-17.0 [facility] Comment on above: Order Comment: Speci men Type: BLOOD SPECIMEN Ordering Facility: [facility] Address: [address] [place] [address] Performed By: #### 3 4528-0, 83311-0 #### [facility] CLIA [id number] [address] [place] [address] [place] Immature granulocytes (Bld) [#/Vol] 0.18 10*3/uL High <0.10 [facility] Comment on above: Order Comment: Speci men Type: BLOOD SPECIMEN Ordering Facility: [facility] Address: [address] [place] [address] Performed By: #### 3 4528-0, 77562-9 #### [facility] CLIA [id number] [address] [place] [address] [place] Immature granulocytes/100 WBC (Bld) 1.3 % Normal [facility] Comment on above: Order Comment: Speci men Type: BLOOD SPECIMEN Ordering Facility: [facility] Address: [address] [place] [address] Performed By: #### 3 4528-0, 91850-1 #### [facility] CLIA [id number] [address] [place] [address] [place] Lymphocytes (Bld) [#/Vol] 0.86 10*3/uL Low 1.00-4.00 [facility] Comment on above: Order Comment: Speci men Type: BLOOD SPECIMEN Ordering Facility: [facility] Address: [address] [place] [address] Performed By: #### 3 4528-0, 28520-5 #### [facility] CLIA [id number] [address] [place] [address] [place] Lymphocytes/100 WBC (Bld) 6.1 % Normal [facility] Comment on above: Order Comment: Speci men Type: BLOOD SPECIMEN Ordering Facility: [facility] Address: [address] [place] [address] Performed By: #### 3 4528-0, 88334-3 #### [facility] CLIA [id number] [address] [place] [address] [place] MCH (RBC) [Entitic mass] 29.7 pg Normal 26.0-34.0 [facility] Comment on above: Order Comment: Speci men Type: BLOOD SPECIMEN Ordering Facility: [facility] Address: [address] [place] [address] Performed By: #### 3 4528-0, 64003-2 #### [facility] CLIA [id number] [address] [place] [address] [place] MCHC (RBC) [Mass/Vol] 31.7 g/dL Normal 30.5-36.0 [facility] Comment on above: Order Comment: Speci men Type: BLOOD SPECIMEN Ordering Facility: [facility] Address: [address] [place] [address] Performed By: #### 3 4528-0, 68495-5 #### [facility] CLIA [id number] [address] [place] [address] [place] MCV (RBC) [Entitic vol] 94.0 fL Normal 80.0-100.0 [facility] Comment on above: Order Comment: Speci men Type: BLOOD SPECIMEN Ordering Facility: [facility] Address: [address] [place] [address] Performed By: #### 3 4528-0, 15729-4 #### [facility] CLIA [id number] [address] [place] [address] [place] Monocytes (Bld) [#/Vol] 0.95 10*3/uL High <0.87 [facility] Comment on above: Order Comment: Speci men Type: BLOOD SPECIMEN Ordering Facility: [facility] Address: [address] [place] [address] Performed By: #### 3 4528-0, 83495-2 #### [facility] CLIA [id number] [address] [place] [address] [place] Monocytes/100 WBC (Bld) 6.8 % Normal [facility] Comment on above: Order Comment: Speci men Type: BLOOD SPECIMEN Ordering Facility: [facility] Address: [address] [place] [address] Performed By: #### 3 4528-0, 98423-2 #### [facility] CLIA [id number] [address] [place] [address] [place] Neutrophils (Bld) [#/Vol] 11.83 10*3/uL High 1.45-7.50 [facility] Comment on above: Order Comment: Speci men Type: BLOOD SPECIMEN Ordering Facility: [facility] Address: [address] [place] [address] Performed By: #### 3 4528-0, 84556-8 #### [facility] CLIA [id number] [address] [place] [address] [place] Neutrophils/100 WBC (Bld) 84.5 % Normal [facility] Comment on above: Order Comment: Speci men Type: BLOOD SPECIMEN Ordering Facility: [facility] Address: [address] [place] [address] Performed By: #### 3 4528-0, 04533-7 #### [facility] CLIA [id number] [address] [place] [address] [place] Nucleated RBC (Bld) [#/Vol] 10*3/uL Normal <0.01 [facility] Comment on above: Order Comment: Speci men Type: BLOOD SPECIMEN Ordering Facility: [facility] Address: [address] [place] [address] Performed By: #### 3 4528-0, 58110-1 #### [facility] CLIA [id number] [address] [place] [address] [place] Nucleated RBC/100 WBC (Bld) [Ratio] 0.0 /100 WBC Normal [facility] Comment on above: Order Comment: Speci men Type: BLOOD SPECIMEN Ordering Facility: [facility] Address: [address] [place] [address] Performed By: #### 3 4528-0, 94430-9 #### [facility] CLIA [id number] [address] [place] [address] [place] Platelet mean volume (Bld) [Entitic vol] 9.8 fL Normal 9.0-12.7 [facility] Comment on above: Order Comment: Speci men Type: BLOOD SPECIMEN Ordering Facility: [facility] Address: [address] [place] [address] Performed By: #### 3 4528-0, 96783-0 #### [facility] CLIA [id number] [address] [place] [id number] [place] Platelets (Bld) [#/Vol] 559 10*3/uL High 150-400 [facility] Comment on above: Order Comment: Speci men Type: BLOOD SPECIMEN Ordering Facility: [facility] Address: [address] [place] [address] Performed By: #### 3 4528-0, 64403-1 #### [facility] CLIA [id number] [address] [place] [address] [place] RBC (Bld) [#/Vol] 2.32 10*6/uL Low 4.20-6.00 [facility] Comment on above: Order Comment: Speci men Type: BLOOD SPECIMEN Ordering Facility: [facility] Address: [address] [place] [address] Performed By: #### 3 4528-0, 85374-9 #### [facility] CLIA [id number] [place] [address] [place] WBC (Bld) [#/Vol] 14.00 10*3/uL High 3.70-11.00 [facility] Comment on above: Order Comment: Speci men Type: BLOOD SPECIMEN Ordering Facility: [facility] Address: [address] [place] [address] Performed By: #### 3 4528-0, 93502-4 #### [facility] CLIA [id number] [address] [place] [id number] [place] [address] PERIT/RETROP FL BIon 08-14-[address] PERIT/RETROP FL BI * * *Final Report* * * DATE OF EXAM: Aug 14 2024 6:05PM [facility] 2022 - CT [address] PERIT/RETROP FL BI / PROCEDURE REASON: abscess * * * * Physician Interpretation * * * * PROCEDURE: CT-guided peritoneal abscess drainage catheter placement x2 Procedural Personnel Attending physician(s): Osiris Escobar M.D. Fellow physician(s): None Resident physician(s): None Advanced practice provider(s): None Medical Student(s): None Pre-procedure diagnosis: Peritoneal abscesses with possible leak status post surgery. Post-procedure diagnosis: Same Indication: Leukocytosis with fluid collection Additional clinical history: None PROCEDURE SUMMARY: - Intraperitoneal drainage catheter placement under CT guidance x2 - Additional procedure(s): None PROCEDURE DETAILS: Pre-procedure Consent: Risks, benefits, treatment options, potential complications and personnel to be involved were discussed (including the risks of radiation exposure, contrast and anesthesia administration, and any equipment needed for the procedure to ensure best possible outcome) with the patient and all questions were answered and consent was obtained prior to procedure. Premedicated for contrast allergy: n/a Transfusion of blood products: No Medication reconciliation: [...] and procedure-specific equipment needs. Start of procedure: 5:23 PM End of procedure: 5:50 PM Patient position: Supine Preparation: The site was prepared and draped using all elements of maximal sterile barrier technique including sterile gloves, sterile gown, cap, mask, large sterile sheet, hand hygiene and cutaneous antisepsis. Antibiotics: None Antibiotic infusion start time: N/A Prophylactic antibiotic administered: Within 1 hour of procedure start time or 2 hours for vancomycin or fluoroquinolones Additional med: None Additional med: None Contrast Contrast agent: None Contrast volume (mL): [address] guidance RADIATION SUMMARY: DLP (mGycm): 936 Radiation dose exceed 5 Gy: No If radiation dose exceeded 5 Gy, was counseling and instructional brochure provided: N/A Anesthesia/sedation Level of anesthesia/sedation: Moderate sedation (conscious sedation) Anesthesia/sedation administered by: Independent trained observer under attending supervision with continuous monitoring of the patient?s level of consciousness and physiologic status Total intra-service sedation time (minutes): 32 minutes Local anesthesia: 2 % lidocaine Left retroperitoneal abscess drainage catheter placement: The patient was positioned supine. Initial imaging was performed. Local anesthesia was administered. The fluid collection was accessed using Yueh catheter followed by wire placement with serial dilation and a drainage catheter was placed. Position of the drainage catheter within the fluid collection was confirmed. - Initial imaging findings: Bilateral peritoneal abscesses extending into the pelvis. - Drainage catheter placed: 10 Czech UreSil multipurpose drainage catheter - External catheter securement: Non-absorbable suture and adhesive anchoring device - Post-drainage imaging findings: Partial drainage of the fluid collection Right retroperitoneal abscess drainage catheter placement: The patient was positioned supine. Initial imaging was performed. Local anesthesia was administered. The fluid collection was accessed using Yueh catheter followed by wire placement with serial dilation and a drainage catheter was placed. Position of the drainage catheter within the fluid collection was confirmed. - Initial imaging findings: Bilateral peritoneal abscesses extending into the pelvis. - Drainage catheter placed: 10 Czech UreSil multipurpose drainage catheter - External catheter securement: Non-absorbable suture and adhesive anchoring device - Post-drainage imaging findings: Partial drainage of the fluid collection Additional Details Additional description of procedure: None Equipment details: None Estimated Blood Loss: Minimal Number and Type of Removed Specimens: 2: Microbiology Standardized report: SIR_DrainPlacement_v3 Complications There were no immediate complications and no other comp (more content not included)... Normal [facility] Comprehensive metabolic 2000 panelon 08-14-2024 Albumin [Mass/Vol] 2.8 g/dL Low 3.9-4.9 [facility] Comment on above: Order Comment: Speci men Type: BLOOD SPECIMEN Ordering Facility: [facility] Address: [address] [place] [address] Performed By: #### 2 4321-2 #### [facility] CLIA [id number] [address] [place] [address] [place] ALP [Catalytic activity/Vol] 107 U/L Normal 38-113 [facility] Comment on above: Order Comment: Speci men Type: BLOOD SPECIMEN Ordering Facility: [facility] Address: [address] [place] [address] Performed By: #### 2 4321-2 #### [facility] CLIA [id number] [place] [address] [place] ALT [Catalytic activity/Vol] 19 U/L Normal 10-54 [facility] Comment on above: Order Comment: Speci men Type: BLOOD SPECIMEN Ordering Facility: [facility] Address: [address] [place], [place] [address] Performed By: #### 2 4321-2 #### [facility] CLIA [id number] [address] [place] [address] [place] Anion gap [Moles/Vol] 12 mmol/L Normal 8-15 [facility] Comment on above: Order Comment: Speci men Type: BLOOD SPECIMEN Ordering Facility: [facility] Address: [address] [place] [address] Performed By: #### 2 4321-2 #### [facility] CLIA [id number] [address] [place] [address] [place] AST [Catalytic activity/Vol] 23 U/L Normal 14-40 [facility] Comment on above: Order Comment: Speci men Type: BLOOD SPECIMEN Ordering Facility: [facility] Address: [address] [place] [address] Performed By: #### 2 4321-2 #### [facility] CLIA [id number] [address] [place] [address] [place] Bilirubin [Mass/Vol] 0.9 mg/dL Normal 0.2-1.3 [facility] Comment on above: Order Comment: Speci men Type: BLOOD SPECIMEN Ordering Facility: [facility] Address: [address] [place] [address] Performed By: #### 2 4321-2 #### [facility] CLIA [id number] [address] [place] [address] [place] Calcium [Mass/Vol] 8.4 mg/dL Low 8.5-10.2 [facility] Comment on above: Order Comment: Speci men Type: BLOOD SPECIMEN Ordering Facility: [facility] Address: [address] [place] [address] Performed By: #### 2 4321-2 #### [facility] CLIA [id number] [address] [place] [address] [place] Chloride [Moles/Vol] 100 mmol/L Normal 98-107 [facility] Comment on above: Order Comment: Speci men Type: BLOOD SPECIMEN Ordering Facility: [facility] Address: [address] [place] [address] Performed By: #### 2 4321-2 #### [facility] CLIA [id number] [address] [place] [address] [place] CO2 [Moles/Vol] 26 mmol/L Normal 22-30 [facility] Comment on above: Order Comment: Speci men Type: BLOOD SPECIMEN Ordering Facility: [facility] Address: [address] [place] [address] Performed By: #### 2 4321-2 #### [facility] CLIA [id number] [address] [place] [address] [place] Creatinine [Mass/Vol] 0.87 mg/dL Normal 0.73-1.22 [facility] Comment on above: Order Comment: Speci men Type: BLOOD SPECIMEN Ordering Facility: [facility] Address: [address] [place] [address] Performed By: #### 2 4321-2 #### [facility] CLIA [id number] [address] [place] [address] [place] Creatinine and Glomerular filtration rate.predicted panel (S/P/Bld) 92 mL/min/1.73m??? Normal >=60 [facility] Comment on above: Order Comment: Speci men Type: BLOOD SPECIMEN Ordering Facility: [facility] Address: [address] [place] [address] Result Comment: Rebekah mated Glomerular Filtration Rate [...] actual GFR. Performed By: #### 2 4321-2 #### [facility] CLIA [id number] [address] [place] [address] [place] Glucose [Mass/Vol] 83 mg/dL Normal 74-99 [facility] Comment on above: Order Comment: Nazario brooks Type: BLOOD SPECIMEN Ordering Facility: [facility] Address: [address] [place] [address] Result Comment: The [place] [employer] (ADA) provides guidance for cutoff values for fasting glucose and random glucose. The ADA defines fasting as no caloric intake for at least 8 hours. Fasting plasma glucose results between 100 to 125 mg/dL indicate increased risk for diabetes (prediabetes). Fasting plasma glucose results greater than or equal to 126 mg/dL meet the criteria for diagnosis of diabetes. In the absence of unequivocal hyperglycemia, results should be confirmed by repeat testing. In a patient with classic symptoms of hyperglycemia or hyperglycemic crisis, random plasma glucose results greater than or equal to 200 mg/dL meet the criteria for diagnosis of diabetes. Reference: Standards of Medical Care in Diabetes 2016, [place] [employer]. Diabetes Care. 2016.39(Suppl 1). Performed By: #### 2 4321-2 #### [facility] CLIA [id number] [address] [place] [address] [place] Potassium [Moles/Vol] 3.4 mmol/L Low 3.7-5.1 [facility] Comment on above: Order Comment: Nazario brooks Type: BLOOD SPECIMEN Ordering Facility: [facility] Address: [address] [place] [address] Performed By: #### 2 4321-2 #### [facility] CLIA [id number] [address] [place] [address] [place] Protein [Mass/Vol] 5.8 g/dL Low 6.3-8.0 [facility] Comment on above: Order Comment: Nazario brooks Type: BLOOD SPECIMEN Ordering Facility: [facility] Address: [address] [place] [address] Performed By: #### 2 4321-2 #### [facility] CLIA [id number] [address] [place] [address] [place] Sodium [Moles/Vol] 138 mmol/L Normal 136-144 [facility] Comment on above: Order Comment: Speci men Type: BLOOD SPECIMEN Ordering Facility: [facility] Address: [address] [place] [address] Performed By: #### 2 4321-2 #### [facility] CLIA [id number] [address] [place] [id number] [place] [facility] Urea nitrogen [Mass/Vol] 12 mg/dL Normal 9-24 [facility] Comment on above: Order Comment: Speci men Type: BLOOD SPECIMEN Ordering Facility: [facility] Address: [address] [place] [address] Performed By: #### 2 4321-2 #### [facility] CLIA [id number] [address] [place] [id number] [facility] [place] ECG COMPLETEon 08-14-2024 ECG COMPLETE Ventricular Rate : 8 1 BPM Atrial Rate : 81 BPM P-R Interval : 50 ms QRS Duration : 105 ms Q-T Interval : 410 ms QTC Calculation(Bazett) : 476 ms Calculated P [place] : 34 degrees Calculated R [place] : -25 degrees Calculated T [place] : 43 degrees Sinus rhythm Multiple ventricular premature complexes Short IN interval Borderline left axis deviation Borderline prolonged QT interval Baseline wander in lead(s) V2 Abnormal ECG Confirmed by RANDY SIM M.D. ([id number]) on 08/18/2024 10:59:51 AM NAME : MERVAT GRAYSON PID : [id number] : 1950 Gender : Male Race : ORD : [id number] Procedure Date : Aug 14 2024 21:02:37 Edit Date : Aug 18 2024 10:59:55 Diagnosis: Sinus rhythm Multiple ventricular premature complexes Short IN interval Borderline left axis deviation Borderline prolonged QT interval Baseline wander in lead(s) V2 Abnormal ECG Confirmed by RANDY SIM M.D. ([id number]) on 08/18/2024 10:59:51 AM Test Reason : Check QT Location : 400 : FVEKG PK3B 21 Overread By : RANDY SIM M.D. Edited By : RANDY SIM M.D. Referred By : , Acquired by : MERNA TESFAYE [facility] ED PROV NOTEon 08-14-2024 ED PROV NOTE HNO ID: [id number] Author: JULIA STEWART MD Service: Emergency Medicine Author Type: Physician Type: ED Provider Notes Filed: 08/14/2024 18:33 Note Text: ED Provider Note Patient Name: Mervat Grayson : 1950 SERVICE DATE: 08/14/24 History Patient presents with: Abdominal Pain surgery consult: pt sts he was sent to the ER to go to surgery, per family they are unsure of the plan yet 73 yo male Pmh of hemicolectomy, here with worsening abd pain, saw surgeon and had abscess on CT, plan for IR drainage and admit for IV abx. PAST MEDICAL HISTORY Diagnosis Date Acute low back pain with possible spinal stenosis of less than six weeks' duration Adenocarcinoma of rectum (HCC) Arthritis Bilateral renal cysts peripelvic BPH with urinary obstruction Cholelithiasis History of kidney stones Non-ischemic cardiomyopathy (HCC) Perforation bowel (HCC) 07/29/2024 Pulmonary emboli (HCC) 2020 left lower lobe [...] Never Smokeless tobacco: Never Vaping Use Vaping status: Never Used Substance and Sexual Activity Alcohol use: Yes Comment: rarely Drug use: No Sexual activity: Not on file ALLERGIES No Known Allergies Review of Systems Constitutional: Negative for activity change, appetite change, chills and fever. HENT: Negative for congestion, sneezing and sore throat. Eyes: Negative for redness and visual disturbance. Respiratory: Negative for cough, shortness of breath and wheezing. Cardiovascular: Negative for chest pain and leg swelling. Gastrointestinal: Positive for abdominal pain. Negative for constipation, diarrhea, nausea and vomiting. Genitourinary: Negative for difficulty urinating. Musculoskeletal: Negative for back pain and myalgias. Skin: Negative for rash. Neurological: Negative for weakness and headaches. Psychiatric/Behavioral: Negative for agitation. Physical Exam Vitals BP Pulse Temp Temp src Resp SpO2 Weight Height 08/14/24 1155 08/14/24 1155 08/14/24 1155 08/14/24 1152 08/14/24 1152 08/14/24 1155 08/14/24 1152 08/14/24 1152 111/62 83 36.8 ?C (98.2 ?F) Oral 16 95 % 111.1 kg (245 lb) 1.88 m (6' 2 ) Physical Exam Vitals and nursing note reviewed. Constitutional: General: He is not in acute distress. Appearance: Normal appearance. He is well-developed. He is not diaphoretic. HENT: Head: Normocephalic and atraumatic. Nose: Nose normal. Mouth/Throat: Mouth: Mucous membranes are moist. Eyes: Conjunctiva/sclera: Conjunctivae normal. Cardiovascular: Rate and Rhythm: Normal rate and regular rhythm. Pulses: Normal pulses. Heart sounds: Normal heart sounds. Pulmonary: Effort: Pulmonary effort is normal. Breath sounds: Normal breath sounds. Abdominal: General: Bowel sounds are normal. Palpations: Abdomen is soft. Tenderness: There is generalized abdominal tenderness. Musculoskeletal: General: No tenderness. Normal range of motion. Cervical back: Normal range of motion. Skin: General: Skin is warm and dry. Neurological: Mental Status: He is alert and oriented to person, place, and time. GCS: GCS eye subscore is 4. GCS verbal subscore is 5. GCS motor subscore is 6. Motor: No abnormal muscle tone. Psychiatric: Mood and Affect: Mood normal. Diagnostic Testing ED Labs Ordered and Reviewed - No data to display Procedures ED Course / Clinical Impression Clinical Impressions as of 08/14/24 183 Abscess Intraabdominal fluid collection S/P right colectomy Rectal cancer (HCC) MDM / Disposition / Plan Reviewed otpt notes, had CT with abscess, CORS aaware, admit for IR and iv abx Management Management of the patient was discussed with:admitting team SIGNATURE: Julia Stewart MD - JULIA STEWART 08/14/24 1833 [facility] ED Triage Noteon 08-14-2024 ED Triage Note HNO ID: [id number] Author: BO GANDHI MD Service: Emergency Medicine Author Type: Physician Type: ED Triage Notes Filed: 08/14/2024 11:58 Note Text: ED INTAKE NOTE Patient Name: Mervat Grayson Service Date: 08/14/24 BRIEF HPI: This is a 73 year old male who presents to the ED with: Hemicolectomy with Dr. Norman on 07.23.24, CT yesterday showing possible air leak and abscess. Called by Dr. Norman last night, told to come to ED. Has not taken Xerelto x 2 days because of this issue CT yesterday,. Postsurgical changes of right hemicolectomy with 3 fluid collections in the pelvis with enhancing dos santos, suspicious for abscesses. The right lower quadrant 1 is located immediately adjacent to the ileocolonic anastomosis and contains foci of air, suspicious for leak. BRIEF EXAM: NAD Awake and Alert Non labored breathing INITIAL WORKUP AND DECISION MAKING: Orders Placed This Encounter COMPREHENSIVE METABOLIC PANEL (BMP+LFT) CBC + AUTO DIFF PT/INR Sepsis Lactate with (1) Reflex NaCl 0.9% iv flush bag piperacillin-tazobactam iv piggyback 3.375 g in dextrose (iso-osmotic) 50 mL (ZOSYN) Provider examination performed via virtual platform with assistance from bedside clinician. SIGNATURE: Bo Gandhi MD [facility] HISTORY PHYSICALon HISTORY PHYSICAL HNO ID: [id number] Author: OSIRIS ESCOBAR MD Service: Interventional Radiology Author Type: Physician Type: H&P Filed: 08/14/2024 16:58 Note Text: UPDATED PROCEDURAL SEDATION HISTORY AND PHYSICAL EXAMINATION SERVICE DATE: 08/14/2024 SERVICE TIME: 4:58 PM PHYSICAL EXAM MUST BE COMPLETED ON ADMISSION PROCEDURE SCHEDULED: Procedure(s): PERCUTANEOUS IMAGE-GUIDED FLUID COLLECTION DRAINAGE BY CATHETER (EG, ABSCESS, HEMATOMA, SEROMA, LYMPHOCELE, CYST); PERITONEAL OR RETROPERITONEAL (Pending) RADIOLOGY ORDER PLACED: The History and Physical (completed in the past 30 days) has been reviewed and the patient has been examined. The contents accurately reflect the patient's condition with the following additions or revisions since the HANDP was completed. ASA Class: ASA Class: Patient with severe systemic disease Examination indicates no changes. AIRWAY: Airway Visualization of Uvula: Yes Mouth opening greater than 2 fingerbreadths: Yes Neck Full Range of Motion: Yes LUNGS: Lungs clear to auscultation CARDIAC: Regular rhythm,Regular rate Provisional Diagnosis/Treatment Plan: Abscess drain placement (x2). Sedation Goal: Moderate This HANDP can be found in the Electronic Medical Record dated 08/14/24. SIGNATURE: Osiris Escobar MD PATIENT NAME: Mervat Grayson DATE: August 14, 2024 TIME: 4:57 PM PAGER: Cale [facility] HISTORY PHYSICAL HNO ID: [id number] Author: DEBORAH NORMAN MD Service: Colorectal Author Type: Resident Type: H&P Filed: 08/14/2024 22:06 Note Text: Attestation signed by Deborah Norman MD at 08/14/2024 10:06 PM Attending Note As above. IR drainage of fluid collections. IV abx. Likely will need long-term IV abx. Attempt nonoperative management Signature: Deborah Norman MD Date: 08/14/2024 Time: 10:05 PM Colorectal Surgery - HISTORY AND PHYSICAL SUBJECTIVE: HPI: Mervat Grayson is a 73 year old male with PMH notable for PE (xarelto), RA (on prednisone 5mg daily), T3N0 rectal cancer diagnosed in 2021 s/p capecitabine and pelvic radiation (completed 11/19/2022). The patient had a surveillance colonoscopy on 07/21 c/b cecal perforation and underwent lap Right hemicolectomy on 07/23. Post op course was complicated by ileus. He was seen in the clinic yesterday and he was expressing concern for poor recovery post op due to poor oral intake secondary to severe RLQ pain and frequent loose BM. Labs showed leukocytosis and CT A/P showed three fluid collections with concern for anastomotic leak so the patient was advised to come to the ED for admission and management. The patient pain got significantly worse 2 days ago and had no PO intake. He hasn't been passing gas for the past few days too. He denied any nausea, vomiting, fever or chills. Last dose of Xarelto was 2 days ago. PAST MEDICAL HISTORY Diagnosis Date Acute low back pain with possible spinal stenosis of less than six weeks' duration Adenocarcinoma of rectum (HCC) Arthritis Bilateral renal cysts peripelvic BPH with urinary obstruction Cholelithiasis History of kidney stones Non-ischemic cardiomyopathy (HCC) Perforation bowel (HCC) 07/29/2024 Pulmonary emboli (HCC) 2019 left lower lobe [...] Never Smokeless tobacco: Never Vaping Use Vaping status: Never Used Substance Use Topics Alcohol use: Yes Comment: rarely Drug use: No Prior to Admission medications as of 08/13/24 1240 Medication Sig Last Dose Taking iv contrast (will be provided with radiology test) CT ABD/PEL -Inject, intravenously, once for 1 dose.No IV access, [...] in the CT contrast administration guidelines link. rivaroxaban (XARELTO) 20 mg tablet Take 1 tablet by mouth once daily. Patient should start on July 30, 2024. ondansetron (ZOFRAN) 4 mg tablet Take 1 tablet by mouth every 8 hours as needed for nausea/vomiting. calcium carbonate (CALCIUM 600 ORAL) Take 1 tablet by mouth once daily. glucosamine/chondr perez A sod (GLUCOSAMINE-CHONDROITI N) 1,500-1,200 mg/30 mL liqd Take by mouth once daily. predniSONE (DELTASONE) 5 mg tablet Take 5 mg by mouth once daily. valsartan (DIOVAN) 80 mg tablet Take 80 mg by mouth once daily. carvedilol (COREG) 6.25 mg tablet Take 6.25 mg by mouth twice daily with meals. tamsulosin ER (FLOMAX) 0.4 mg cap Take 0.4 mg by mouth twice daily. Ascorbic Acid 100 mg tablet Take 100 mg by mouth twice daily. ALLERGIES No Known Allergies PHYSICAL EXAM: BP 111/62 Pulse 83 Temp (Src) 98.2 (Oral) Resp 14 Ht 6' 2 (1.88m) Wt 245 lb (111.1kg) SpO2 95% BMI 31.44 kg/(m2). O2 Therapy: Room Air GENERAL: awake, alert and oriented, no acute distress. CARDIOVASCULAR: warm and well perfused throughout, regular rate and rhythm, normal S1 and S2. LUNGS: non-labored breathing, lungs clear to auscultation, good diaphragmatic excursion. ABDOMEN: soft, moderately tender, distended. EXTREMITY: no lower extremity edema. NEUROLOGICAL: no gross focal neurologic deficits. LABS: Hemoglobin (g/dL) Date Value 08/13/2024 7.3 08/04/2018 14.3 Hematocrit (%) Date Value 08/13/2024 24.0 08/04/2018 43.1 WBC (k/uL) Date Value 08/13/2024 13.68 08/04/2018 6.24 Glucose (mg/dL) Date Value 08/13/2024 94 08/04/2018 90 Potassium (mmol/L) Date Value 08/13/2024 3.3 08/04/2018 3.9 Sodium (mmol/L) Date Value 08/13/2024 138 08/04/2018 1 (more content not included)... Normal [facility] NURSING PROGon 08-14-2024 NURSING PROG HNO ID: [id number] Author: EMMANUEL LANDAVERDE RN Service: Nursing Author Type: Registered Nurse Type: Nursing Progress Note Filed: 08/14/2024 19:58 Note Text: Transfer Note: PATIENT NAME: Mervat Grayson Patient Location: / Room: JF6L-28 Patient transferred into room/unit PK321 in stable condition. Actions taken: No futher actions taken at this time. Will continue to monitor and check with patient. Normal [facility] NURSING PROG HNO ID: [id number] Author: MINERVA BARTLETT, ALEXUS Service: PICC Team Author Type: Registered Nurse Type: Nursing Progress Note Filed: 08/14/2024 15:48 Note Text: Patient is scheduled for a drain placement this afternoon. Radiology will need an order for imaging guided drain placement. [facility] PT EDon 08-14-2024 PT ED HNO ID: [id number] Author: ML LOERA RN Service: Radiology Author Type: Registered Nurse Type: Patient Education Filed: 08/14/2024 17:02 Note Text: PATIENT EDUCATION TOPIC: PROCEDURE / SURGERY: Procedure/Surgery: Abscess Drain PATIENT NAME: Mervat Grayson PATIENT LOCATION: INTERVENTIONAL RADIOL* READINESS TO LEARN COGNITIVE ABILITY: Alert and oriented MOTIVATION TO LEARN: Interested FAMILY SUPPORT: High - Very involved in pt care INSTRUCTION PROVIDED TO: Patient PATIENT LEARNS BEST BY: Multiple Methods FACTORS AFFECTING LEARNING: None PHYSICAL LIMITATIONS AFFECTING LEARNING: None LEARNING RESPONSE DIAGNOSIS: ADULT: Abscess PATIENT/FAMILY RESPONSE: Verbalizes understanding of: POST-PROCEDURE INSTRUCTIONS-Correct actions to take to reduce post procedure complications PRE-PROCEDURE INSTRUCTIONS-Correct action to take to follow pre-procedure instructions METHOD OF INSTRUCTION: Individual instruction Written instruction/Handouts Verbal instruction FOLLOW-UP PLAN: Follow-up with Primary Care INSTRUCTIONAL AIDS USED: NA SUPPLEMENTAL MATERIAL PROVIDED TO PATIENT: None REFERRAL (RECOMMENDATION): None Electronically Signed By: Ml Loera [facility] PT panel Coag (PPP)on 2023 INR Coag (PPP) [Relative time] 1.2 {INR} Normal 0.9-1.3 [facility] Comment on above: Order Comment: Speci men Type: BLOOD SPECIMEN Ordering Facility: [facility] Address: [address] [place] [address] Result Comment: Myrna min K Antagonist (VKA) Therapeutic Range: INR 2 to 3 (Target INR of 2.5) Note: For patients treated with VKA drugs, such as warfarin, the [place] [employer] 2012 Guideline recommends a therapeutic INR range of 2 to 3 (target INR of 2.5). This recommendation includes high-risk patients with antiphospholipid syndrome with previous arterial or venous thromboembolism, current-generation mechanical or bioprosthetic aortic heart valve replacement. Note: Patients with mechanical aortic valve replacement and additional risk factors for thromboembolic events (atrial fibrillation, previous thromboembolism, LV dysfunction, hypercoagulable conditions) or an older generation mechanical AVR (i.e., ball in-Cage) or any mechanical MVR should have a INR therapeutic range of 2.5 to 3.5 (target INR of 3). Dmitriy GH, et al. Chest 2012, 141:7S-47S Jelena ANSARI et al. [facility] 2017, 70: 252-289 Performed By: #### 3 4528-0, 77857-8 #### [facility] CLIA [id number] [address] [place] [address] [place] PT Coag (PPP) [Time] 13.5 s High 9.7-13.0 [facility] Comment on above: Order Comment: Speci men Type: BLOOD SPECIMEN Ordering Facility: [facility] Address: [address] [place] [address] Performed By: #### 3 4528-0, 83926-7 #### [facility] CLIA [id number] [address] [place] [address] [place] SEPSIS LACTATE W/ REFLEX (IN ITIAL)on 08-14-2024 Lactate [Moles/Vol] 1.1 mmol/L Normal 0.0-2.0 [facility] Comment on above: Order Comment: Speci men Type: BLOOD SPECIMENOrdering Facility: [facility] Address: [address] [place] [address] Performed By: #### S LACTR ####[facility] [id number] [address] [place] TYPE + SCREENon 08-14-2024 ABO O Normal [facility] Comment on above: Order Comment: Speci men Type: BLOOD SPECIMENOrdering Facility: [facility] Address: [address] [place] [address] Performed By: #### T SCR ####[facility] [id number] [address] [place] Rh Nom (Bld) Positive Normal [facility] Comment on above: Order Comment: Speci men Type: BLOOD SPECIMENOrdering Facility: [facility] Address: [address] [place] [address] Performed By: #### T SCR ####[facility] [id number] [place] [id number] [facility] TYPE AND SCREEN EXPIRATION 08/17/2024 23:59 Normal [facility] Comment on above: Order Comment: Speci men Type: BLOOD SPECIMENOrdering Facility: [facility] Address: [address] [place] [address] Performed By: #### T SCR ####[facility] [id number] [place] [id number] [facility] aPTT PPPon 08-14-2024 aPTT Coag (PPP) [Time] 29.2 s Normal 23.0-32.4 [facility] Comment on above: Order Comment: Speci men Type: BLOOD SPECIMEN Ordering Facility: [facility] Address: [address] [place] [address] Performed By: #### 3 4528-0, 36229-0 #### [facility] CLIA [id number] [address] [place] [id number] [facility] Basic metabolic 2000 panelon 08-13-2024 Anion gap [Moles/Vol] 11 mmol/L 8 - 15 mmol/L [facility] Calcium [Mass/Vol] 8.5 mg/dL 8.5 - 10. 2 mg/dL [facility] Chloride [Moles/Vol] 100 mmol/L 98 - 10 7 mmol/L [facility] CO2 [Moles/Vol] 27 mmol/L 22 - 30 mmol/L [facility] Creatinine [Mass/Vol] 0.91 mg/dL 0.73 - 1.22 mg/dL [facility] GFR/1.73 sq M.predicted among non-blacks MDRD (S/P/Bld) [Vol rate/Area] 90 mL/min/{1.73_m2} - PINF [facility] Comment on above: Estimated Glomerular Filtration Rate (eGFR) is calculated using the 2020 CKD-EPI creatinine equation. This equation utilizes serum creatinine, sex, and age as parameters. The creatinine assay has traceable calibration to isotope dilution-mass spectrometry. Refer to KDIGO guidelines for clinical interpretation. In patients with unstable renal function, e.g. those with acute kidney injury, the eGFR may not accurately reflect actual GFR. Glucose [Mass/Vol] 94 mg/dL 74 - 99 mg/dL [facility] Comment on above: The [place] [employer] Association (ADA) provides guidance for cutoff values for fasting glucose and random glucose. The ADA defines fasting as no caloric intake for at least 8 hours. Fasting plasma glucose results between 100 to 125 mg/dL indicate increased risk for diabetes (prediabetes). Fasting plasma glucose results greater than or equal to 126 mg/dL meet the criteria for diagnosis of diabetes. In the absence of unequivocal hyperglycemia, results should be confirmed by repeat testing. In a patient with classic symptoms of hyperglycemia or hyperglycemic crisis, random plasma glucose results greater than or equal to 200 mg/dL meet the criteria for diagnosis of diabetes. Reference: Standards of Medical Care in Diabetes 2016, [place] [employer]. Diabetes Care. 2016.39(Suppl 1). Interpretation and review of laboratory results Abnormal [facility] Potassium [Moles/Vol] 3.3 mmol/L Low 3.7 - 5.1 mmol/L [facility] Sodium [Moles/Vol] 138 mmol/L 136 - 144 mmol/L [facility] Urea nitrogen [Mass/Vol] 11 mg/dL 9 - 24 mg/dL [facility] Anion gap [Moles/Vol] 11 mmol/L Normal 8-15 [place] Comment on above: Order Comment: Speci men Type: BLOOD SPECIMENOrdering Facility: [facility] Address: [address] [id number] Performed By: #### 2 4321-2 ####[facility] LABORATORYCLIA [id number] [place] [address] [place] Calcium [Mass/Vol] 8.5 mg/dL Normal 8.5-10.2 [facility] Comment on above: Order Comment: Speci men Type: BLOOD SPECIMENOrdering Facility: [facility] Address: [address] [id number] Performed By: #### 2 4321-2 ####[facility]ORATORYCLIA [id number] [place] [address] [place] Chloride [Moles/Vol] 100 mmol/L Normal 98-107 [facility] Comment on above: Order Comment: Speci men Type: BLOOD SPECIMENOrdering Facility: [facility] Address: [address] [place] [address] Performed By: #### 2 4321-2 ####[facility]ORATORYCLIA [id number] [address] [place] CO2 [Moles/Vol] 27 mmol/L Normal 22-30 [facility] Comment on above: Order Comment: Speci men Type: BLOOD SPECIMENOrdering Facility: [facility] Address: [address] [place] [address] Performed By: #### 2 4321-2 ####[facility] LABORATORYCLIA [id number] [address] Creatinine [Mass/Vol] 0.91 mg/dL Normal 0.73-1.22 [place] Comment on above: Order Comment: Speci men Type: BLOOD SPECIMENOrdering Facility: [facility] Address: [address] [place] [address] Performed By: #### 2 4321-2 ####[facility] LABORATORYIA [id number] [address] Creatinine and Glomerular filtration rate.predicted panel (S/P/Bld) 90 mL/min/1.73m??? Normal >=60 [facility] Comment on above: Order Comment: Speci men Type: BLOOD SPECIMENOrdering Facility: [facility] Address: [address] [place] [address] Result Comment: Rebekah mated Glomerular Filtration Rate [...] actual GFR. Performed By: #### 2 4321-2 ####[facility]ORATORYCLIA [id number] [place] [address] [place] Glucose [Mass/Vol] 94 mg/dL Normal 74-99 [facility] Comment on above: Order Comment: Nazario brooks Type: BLOOD SPECIMENOrdering Facility: [facility] Address: [address] [id number] Result Comment: The [place] [employer] (ADA) provides guidance for cutoff [...] Standards of Medical Care in Diabetes 2016, [place] [employer]. Diabetes Care. 2016.39(Suppl 1). Performed By: #### 2 4321-2 ####[facility]ATORYCLIA [id number] [place] [address] [place] Potassium [Moles/Vol] 3.3 mmol/L Low 3.7-5.1 [place] Comment on above: Order Comment: Nazario brooks Type: BLOOD SPECIMENOrdering Facility: [facility] Address: [address] [place], [place] [address] Performed By: #### 2 4321-2 ####[facility] LABORATORYCLIA [id number] [address] [address] [place] Sodium [Moles/Vol] 138 mmol/L Normal 136-144 [facility] Comment on above: Order Comment: Nazario brooks Type: BLOOD SPECIMENOrdering Facility: [facility] Address: [address] [place] [address] Performed By: #### 2 4321-2 ####[facility]ORATORYCLIA [id number] [address] [address] [place] Urea nitrogen [Mass/Vol] 11 mg/dL Normal 9-24 [facility] Comment on above: Order Comment: Speci men Type: BLOOD SPECIMENOrdering Facility: [facility] Address: [address] [phone] Performed By: #### 2 4321-2 ####[facility]ORATORYCLIA [id number] [address] CBC panel Auto (Bld)on 08-13 Erythrocyte distribution width (RBC) [Ratio] 16.7 % High 11.5 - 15.0 % [facility] Hematocrit (Bld) [Volume fraction] 24.0 % Low 39.0 - 51.0 % [facility] Hemoglobin (Bld) [Mass/Vol] 7.3 g/dL Low 13.0 - 17.0 g/dL [facility] Interpretation and review of laboratory results Abnormal [facility] MCH (RBC) [Entitic mass] 29.3 pg 26.0 - 34.0 pg [facility] MCHC (RBC) [Mass/Vol] 30.4 g/dL Low 30.5 - 36.0 g/dL [facility] MCV (RBC) [Entitic vol] 96.4 fL 80.0 - 100.0 fL [facility] Nucleated RBC (Bld) [#/Vol] NINF [facility] Platelet mean volume (Bld) [Entitic vol] 10.1 fL 9.0 - 12.7 fL [facility] Platelets (Bld) [#/Vol] 634 10*3/uL High [facility] RBC (Bld) [#/Vol] 2.49 10*6/uL Low 4.20 - 6.0 0 m/uL [facility] WBC (Bld) [#/Vol] 13.68 10*3/uL [facility] Erythrocyte distribution width (RBC) [Ratio] 16.7 % High 11.5-15.0 [facility] Comment on above: Order Comment: Speci men Type: BLOOD SPECIMENOrdering Facility: [facility] Address: [address] [place] [address] Performed By: #### 5 8410-2 ####[facility]ORATORYCLIA [id number] [address] Hematocrit (Bld) [Volume fraction] 24.0 % Low 39.0-51.0 [facility] Comment on above: Order Comment: Speci men Type: BLOOD SPECIMENOrdering Facility: [facility] Address: [address] [place] [address] Performed By: #### 5 8410-2 ####[facility] LABORATORYCLIA [id number] [address] [place] Hemoglobin (Bld) [Mass/Vol] 7.3 g/dL Low 13.0-17.0 [facility] Comment on above: Order Comment: Speci men Type: BLOOD SPECIMENOrdering Facility: [facility] Address: [address] [place] [address] Performed By: #### 5 8410-2 ####[facility] LABORATORYIA [id number] [address] MCH (RBC) [Entitic mass] 29.3 pg Normal 26.0-34.0 [facility] Comment on above: Order Comment: Speci men Type: BLOOD SPECIMENOrdering Facility: [facility] Address: [address] [place] [address] Performed By: #### 5 8410-2 ####[facility] LABORATORYIA [id number] [address] [place] MCHC (RBC) [Mass/Vol] 30.4 g/dL Low 30.5-36.0 [place] Comment on above: Order Comment: Speci men Type: BLOOD SPECIMENOrdering Facility: [facility] Address: [address] [place] [address] Performed By: #### 5 8410-2 ####[facility] LABORATORYIA [id number] [address] MCV (RBC) [Entitic vol] 96.4 fL Normal 80.0-100.0 [facility] Comment on above: Order Comment: Speci men Type: BLOOD SPECIMENOrdering Facility: [facility] Address: [address] [place] [address] Performed By: #### 5 8410-2 ####[facility] LABORATORYIA [id number] [address] [address] [place] Nucleated RBC (Bld) [#/Vol] 10*3/uL Normal <0.01 [facility] Comment on above: Order Comment: Speci men Type: BLOOD SPECIMENOrdering Facility: [facility] Address: [address] [place] [address] Performed By: #### 5 8410-2 ####[facility]ORATORYIA [id number] [place] [address] [place] Platelet mean volume (Bld) [Entitic vol] 10.1 fL Normal 9.0-12.7 [facility] Comment on above: Order Comment: Speci men Type: BLOOD SPECIMENOrdering Facility: [facility] Address: [address] [place] [address] Performed By: #### 5 8410-2 ####[facility] HOSPITALIA [id number] [place] [address] [place] Platelets (Bld) [#/Vol] 634 10*3/uL High 150-400 [facility] Comment on above: Order Comment: Speci men Type: BLOOD SPECIMENOrdering Facility: [facility] Address: [address] [place] [address] Performed By: #### 5 8410-2 ####[facility]ORATORYIA [id number] [place] [address] [place] RBC (Bld) [#/Vol] 2.49 10*6/uL Low 4.20-6.00 [facility] Comment on above: Order Comment: Speci men Type: BLOOD SPECIMENOrdering Facility: [facility] Address: [address] [place] [address] Performed By: #### 5 8410-2 ####[facility] LABORATORYIA [id number] [place] [address] [place] WBC (Bld) [#/Vol] 13.68 10*3/uL High 3.70-11.00 [facility] Comment on above: Order Comment: Speci men Type: BLOOD SPECIMENOrdering Facility: [facility] Address: [address] [phone] Performed By: #### 5 8410-2 ####[facility]ORATORYCLIA [id number] [place] [address] [place] CNOVon 08-13-2024 CNOV Normal [facility] CT ABD/PEL W IVCONon 024 CT ABD/PEL W IVCON Normal [facility] CT Abdomen and Pelvis W cont rast Ivelisse 08-13-2024 IMPRESSION: Postsurgical changes of right hemicolectomy with 3 fluid collections in the pelvis with enhancing dos santos, suspicious for abscesses. The right lower quadrant 1 is located immediately adjacent to the ileocolonic anastomosis and contains foci of air, suspicious for leak. Services Manager: [facility] Transcribe Date/Time: Aug 13 2024 3:35P Dictated by : FLORENTINO HUBBARD MD This examination was interpreted and the report reviewed and electronically signed by: FLORENTINO HUBBARD MD on Aug 13 2024 3:46PM [facility] DIVISION OF RADIOLOGY * * *Final Report* * * DATE OF EXAM: Aug 13 2024 3:20PM [facility] 0530 - CT ABD/PEL W IVCON / PROCEDURE REASON: Infection in abdomen (HCC) * * * * Physician Interpretation * * * * EXAMINATION: CT ABDOMEN AND PELVIS WITH IV CONTRAST CLINICAL HISTORY: s/p a Laparoscopic Right Colectomy, Umbilical Hernia Repair on 07/23/2024. Abdominal pain and distention TECHNIQUE: CT of the abdomen and pelvis was performed using standard technique, scanning from just above the dome of the diaphragm to the symphysis pubis. MQ: CTAP_3 Contrast: Central IV: 100 ml of Omnipaque 350 Oral: 450 ml of Omni 240 10-25ml diluted with water CT Radiation dose: Integrated Dose-length product (DLP) for this visit = 807 mGy*cm. CT Dose Reduction Employed: Automated exposure control (AEC) COMPARISON: OSH CT 07/22/2024 RESULT: Liver: No mass. Biliary: No bile duct dilation. Cholelithiasis, along with stones in the cystic duct. No imaging findings of acute cholecystitis. Spleen: No mass. No splenomegaly. Pancreas: No mass or duct dilation. Adrenals: No mass. Kidneys: Punctate nonobstructing stone in the right upper pole. 0.5 cm stone in the interpolar left kidney. Bilateral parapelvic cysts. No hydronephrosis. GI tract: No bowel obstruction. Post surgical changes of right hemicolectomy. Colonic diverticulosis without findings of acute diverticulitis. Lymph nodes: No abdominal or pelvic lymphadenopathy. Mesentery/Peritoneum: Medial to the ileocolonic anastomosis in the right lower quadrant, there is an air and fluid collection with enhancing wall measuring 3.5 x 3.2 x 7.2 cm (3:114 and 6:61), suspicious for an abscess. The collection appears to have tract extending into the deep pelvis with another component in the cul-de-sac measuring 4 x 2.6 cm (3:142). There is a third collection with enhancing wall in the left lower quadrant which may or may not be communicating with the other 2 and measures 4.4 x 3.5 x 7 cm (3:152 and 6:89). Trace upper abdominal ascites. Retroperitoneum: No mass. Vasculature: The celiac axis and SMA are patent. The portal vein and branches, splenic vein, SMV, and hepatic veins are patent. Pelvis: The bladder is decompressed. Bones/Soft Tissues: Degenerative changes. Lower thorax: Subsegmental atelectasis at the lung bases. Localizer images: No additional findings. DIVISION OF RADIOLOGY Provider, [facility] - 08/13/2024 * * *Final Report* * * DATE OF EXAM: Aug 13 2024 3:20PM [facility] 0530 - CT ABD/PEL W IVCON / PROCEDURE REASON: Infection in abdomen (HCC) * * * * Physician Interpretation * * * * EXAMINATION: CT ABDOMEN AND PELVIS WITH IV CONTRAST CLINICAL HISTORY: s/p a Laparoscopic Right Colectomy, Umbilical Hernia Repair on 07/23/2024. Abdominal pain and distention TECHNIQUE: CT of the abdomen and pelvis was performed using standard technique, scanning from just above the dome of the diaphragm to the symphysis pubis. MQ: CTAP_3 Contrast: Central IV: 100 ml of Omnipaque 350 Oral: 450 ml of Omni 240 10-25ml diluted with water CT Radiation dose: Integrated Dose-length product (DLP) for this visit = 807 mGy*cm. CT Dose Reduction Employed: Automated exposure control (AEC) COMPARISON: OSH CT 07/22/2024 RESULT: Liver: No mass. Biliary: No bile duct dilation. Cholelithiasis, along with stones in the cystic duct. No imaging findings of acute cholecystitis. Spleen: No mass. No splenomegaly. Pancreas: No mass or duct dilation. Adrenals: No mass. Kidneys: Punctate nonobstructing stone in the right upper pole. 0.5 cm stone in the interpolar left kidney. Bilateral parapelvic cysts. No hydronephrosis. GI tract: No bowel obstruction. Post surgical changes of right hemicolectomy. Colonic diverticulosis without findings of acute diverticulitis. Lymph nodes: No abdominal or pelvic lymphadenopathy. Mesentery/Peritoneum: Medial to the ileocolonic anastomosis in the right lower quadrant, there is an air and fluid collection with enhancing wall measuring 3.5 x 3.2 x 7.2 cm (3:114 and 6:61), suspicious for an abscess. The collection appears to have tract extending into the deep pelvis with another component in the cul-de-sac measuring 4 x 2.6 cm (3:142). There is a third collection with enhancing wall in the left lower quadrant which may or may not be communicating with the other 2 and measures 4.4 x 3.5 x 7 cm (3:152 and 6:89). Trace upper abdominal ascites. Retroperitoneum: No mass. Vasculature: The celiac axis and SMA are patent. The portal vein and branches, splenic vein, SMV, and hepatic veins are patent. Pelvis: The bladder is decompressed. Bones/Soft Tissues: Degenerative changes. Lower thorax: Subsegmental atelectasis at the lung bases. Localizer images: No additional findings. IMPRESSION IMPRESSION: Postsurgical changes of right hemicolectomy with 3 fluid collections in the pelvis with enhancing dos santos, suspicious for abscesses. The right lower quadrant 1 is located immediately adjacent to the ileocolonic anastomosis and contains foci of air, suspicious for leak. Services Manager: [facility] Transcribe Date/Time: Aug 13 2024 3:35P Dictated by : FLORENTINO HUBBARD MD This examination was interpreted and the report reviewed and electronically signed by: FLORENTINO HUBBARD MD on Aug 13 2024 3:46PM EST [facility] Radiology Study observation (narrative) [facility] CT Abdomen and Pelvis W cont rast IVOrdered By: [facility] Provider on 08-13-2024 [facility] CNPNon 08-05-2024 CNPN Normal [facility] CNPNon 08-04-2024 CNPN Normal [facility] CNPNon 07-30-2024 CNPN Normal [facility] [id number] 07-29-2024 [id number] HNO ID: [id number] Author: GENI BAEZ RN Service: ? Author Type: Registered Nurse Type: [id number] Filed: 07/29/2024 16:29 Note Text: Xarelto start 07/30 Normal [facility] Basic metabolic 2000 panelon 07-29-2024 Anion gap [Moles/Vol] 12 mmol/L Normal 8-15 [facility] Comment on above: Order Comment: Speci men Type: BLOOD SPECIMEN [facility] Address: [address] [place] [address] Performed By: #### 2 4321-2 #### [facility] CLIA [id number] [address] [place] [address] [place] Calcium [Mass/Vol] 8.3 mg/dL Low 8.5-10.2 [facility] Comment on above: Order Comment: Speci men Type: BLOOD SPECIMEN [facility] Address: [address] [place] [address] Performed By: #### 2 4321-2 #### [facility] CLIA [id number] [address] [place] [address] [place] Chloride [Moles/Vol] 103 mmol/L Normal 98-107 [facility] Comment on above: Order Comment: Speci men Type: BLOOD SPECIMEN [facility] Address: [address] [place] [address] Performed By: #### 2 4321-2 #### [facility] CLIA [id number] [place] [address] [place] CO2 [Moles/Vol] 25 mmol/L Normal 22-30 [facility] Comment on above: Order Comment: Speci men Type: BLOOD SPECIMEN [facility] Address: [address] [place] [address] Performed By: #### 2 4321-2 #### [facility] CLIA [id number] [place] [address] [place] Creatinine [Mass/Vol] 0.83 mg/dL Normal 0.73-1.22 [facility] Comment on above: Order Comment: Speci men Type: BLOOD SPECIMEN [facility] Address: [address] [place] [address] Performed By: #### 2 4321-2 #### [facility] CLIA [id number] [address] [place] [address] [place] Creatinine and Glomerular filtration rate.predicted panel (S/P/Bld) 94 mL/min/1.73m??? Normal >=60 [facility] Comment on above: Order Comment: Speci men Type: BLOOD SPECIMEN [facility] Address: [address] [place] [address] Result Comment: Rebekah mated Glomerular Filtration Rate [...] actual GFR. Performed By: #### 2 4321-2 #### [facility] CLIA [id number] [place] [address] [place] Glucose [Mass/Vol] 86 mg/dL Normal 74-99 [facility] Comment on above: Order Comment: Speci men Type: BLOOD SPECIMEN [facility] Address: [address] [place] [address] Result Comment: The [place] [employer] (ADA) provides guidance for cutoff values for fasting glucose and random glucose. The ADA defines fasting as no caloric intake for at least 8 hours. Fasting plasma glucose results between 100 to 125 mg/dL indicate increased risk for diabetes (prediabetes). Fasting plasma glucose results greater than or equal to 126 mg/dL meet the criteria for diagnosis of diabetes. In the absence of unequivocal hyperglycemia, results should be confirmed by repeat testing. In a patient with classic symptoms of hyperglycemia or hyperglycemic crisis, random plasma glucose results greater than or equal to 200 mg/dL meet the criteria for diagnosis of diabetes. Reference: Standards of Medical Care in Diabetes 2016, [place] [employer]. Diabetes Care. 2016.39(Suppl 1). Performed By: #### 2 4321-2 #### [facility] CLIA [id number] [address] [place] [address] [place] Potassium [Moles/Vol] 3.4 mmol/L Low 3.7-5.1 [facility] Comment on above: Order Comment: Nazario brooks Type: BLOOD SPECIMEN [facility] Address: [address] [place] [address] Performed By: #### 2 4321-2 #### [facility] CLIA [id number] [address] [place] [address] [place] Sodium [Moles/Vol] 140 mmol/L Normal 136-144 [facility] Comment on above: Order Comment: Nazario brooks Type: BLOOD SPECIMEN [facility] Address: [address] [place] [address] Performed By: #### 2 4321-2 #### [facility] CLIA [id number] [address] [place] [address] [place] Urea nitrogen [Mass/Vol] 12 mg/dL Normal 9-24 [facility] Comment on above: Order Comment: Nazario brooks Type: BLOOD SPECIMEN [facility] Address: [address] [place] [address] Performed By: #### 2 4321-2 #### [facility] CLIA [id number] [address] [place] [address] [place] CBC panel Auto (Bld)on 07-29 Erythrocyte distribution width (RBC) [Ratio] 15.5 % High 11.5-15.0 [facility] Comment on above: Order Comment: Speci men Type: BLOOD SPECIMEN [facility] Address: [address] [place] [address] Performed By: #### 5 8410-2 #### [facility] CLIA [id number] [address] [place] [address] [place] Hematocrit (Bld) [Volume fraction] 22.3 % Low 39.0-51.0 [facility] Comment on above: Order Comment: Speci men Type: BLOOD SPECIMEN [facility] Address: [address] [place] [address] Performed By: #### 5 8410-2 #### [facility] CLIA [id number] [address] [place] [address] [place] Hemoglobin (Bld) [Mass/Vol] 7.2 g/dL Low 13.0-17.0 [facility] Comment on above: Order Comment: Speci men Type: BLOOD SPECIMEN [facility] Address: [address] [place] [address] Performed By: #### 5 8410-2 #### [facility] CLIA [id number] [address] [place] [address] [place] MCH (RBC) [Entitic mass] 31.3 pg Normal 26.0-34.0 [facility] Comment on above: Order Comment: Speci men Type: BLOOD SPECIMEN [facility] Address: [address] [place] [address] Performed By: #### 5 8410-2 #### [facility] CLIA [id number] [address] [place] [address] [place] MCHC (RBC) [Mass/Vol] 32.3 g/dL Normal 30.5-36.0 [facility] Comment on above: Order Comment: Speci men Type: BLOOD SPECIMEN [facility] Address: [address] [place] [address] Performed By: #### 5 8410-2 #### [facility] CLIA [id number] [address] [place] [address] [place] MCV (RBC) [Entitic vol] 97.0 fL Normal 80.0-100.0 [facility] Comment on above: Order Comment: Speci men Type: BLOOD SPECIMEN [facility] Address: [address] [place] [address] Performed By: #### 5 8410-2 #### [facility] CLIA [id number] [address] [place] [address] [place] Nucleated RBC (Bld) [#/Vol] 10*3/uL Normal <0.01 [facility] Comment on above: Order Comment: Speci men Type: BLOOD SPECIMEN [facility] Address: [address] [place] [address] Performed By: #### 5 8410-2 #### [facility] CLIA [id number] [address] [place] [address] [place] Platelet mean volume (Bld) [Entitic vol] 10.3 fL Normal 9.0-12.7 [facility] Comment on above: Order Comment: Speci men Type: BLOOD SPECIMEN [facility] Address: [address] [place] [address] Performed By: #### 5 8410-2 #### [facility] CLIA [id number] [address] [place] [address] [place] Platelets (Bld) [#/Vol] 320 10*3/uL Normal 150-400 [facility] Comment on above: Order Comment: Speci men Type: BLOOD SPECIMEN [facility] Address: [address] [place] [address] Performed By: #### 5 8410-2 #### [facility] CLIA [id number] [address] [place] [address] [place] RBC (Bld) [#/Vol] 2.30 10*6/uL Low 4.20-6.00 [facility] Comment on above: Order Comment: Speci men Type: BLOOD SPECIMEN [facility] Address: [address] [place] [address] Performed By: #### 5 8410-2 #### [facility] CLIA [id number] [address] [place] [address] [place] WBC (Bld) [#/Vol] 11.08 10*3/uL High 3.70-11.00 [facility] Comment on above: Order Comment: Speci men Type: BLOOD SPECIMEN [facility] Address: [address] [place] [address] Performed By: #### 5 8410-2 #### [facility] CLIA [id number] [address] [place] [id number] [facility] CNDSon 07-29-2024 CNDS HNO ID: [id number] Author: DEBORAH NORMAN MD Service: Colorectal Author Type: Resident Type: Discharge Summary Filed: 07/30/2024 13:14 Note Text: Attestation signed by Deborah Norman MD at 07/30/2024 1:14 PM Attending Note I evaluated the patient and personally participated in the tripp components. I agree with the resident's findings and plan as documented and have discussed the case and management of the patient's care with the resident. Signature: Deborah Norman MD Date: 07/30/2024 Time: 1:14 PM DISCHARGE SUMMARY PATIENT NAME: Mervat Grayson ADMISSION DATE: 07/22/2024 DISCHARGE DATE: 07/29/2024 ATTENDING PHYSICIAN: Deborah Norman MD Code Status: Not on file Highest Readmission Risk Score: 15 The 30 day readmissions risk score is derived from an internally validated risk model which evaluates patient level characteristics, utilization history, medication orders and lab results up until the day of discharge. Patients with a score of 40 or above are considered highest risk for readmission. Specific patient level drivers will be listed at the bottom of the summary. CONSULTING TEAMS DURING HOSPITALIZATION: Anesthesiology: intubation Treatment Team: Attending Provider: Deborah Norman MD REASON FOR HOSPITALIZATION: Cecal Perforation DIAGNOSIS: Principal Problem: Pneumoperitoneum (POA: Unknown) Active Problems: Obesity, Class I, BMI 30-34.9 (POA: Unknown) Perforation bowel (HCC) (POA: Unknown) S/P right colectomy (POA: No) Resolved Problems: * No resolved hospital problems. * OPERATIONS DURING HOSPITALIZATION: Diagnostic PROCEDURES DURING HOSPITALIZATION: intubation HOSPITAL COURSE: Mervat Grayson is a 73 year old H notable for PE (xarelto), RA (on prednisone 5mg daily), T3N0 rectal cancer diagnosed in 2021 s/p capecitabine and pelvic radiation (completed 11/19/2022), who had surveillence colonoscopy on 07/21 with subsequent development of cecal perforation now s/p lap Right hemicolectomy 07/23 c/b ileus, NG tube inserted 07/25. NGT d/c 07/28. Patient's diet was advance following the removal of his NGT and he tolerated it well. On 07/29/2024 he was ambulating without concern, voiding spontaneously and tolerating a diet, and deemed safe for discharge. Colectomy SSI Bundle Reporting: Was this an elective case: No Which of the following did the patient complete pre-operatively? None of the Above Transitions of Care Critical Issues: None LABS AND PROCEDURES PENDING AT DISCHARGE: No pending results PATIENT CONDITION AT DISCHARGE: Improved DISCHARGE DISPOSITION: Home with Self Care INFORMATION PROVIDED TO PATIENT: Refer to discharge instructions WOUND/SURGICAL SITE CARE: Keep your incisions clean and dry Surgical sites are closed with suture below the skin that will dissolve over time Your incisions are covered with skin glue. -This will come off on its own after 1-2 weeks You may shower 2 days after surgery. -You may wash the incisions with warm, soapy water. -Do not scrub the incisions. -Pat your incisions dry after showering. No baths, swimming, or hot tubs for 2 weeks. DIET: Resume pre-hospital diet ACTIVITY: Resume pre-hospital activity Limited to: No heavy lifting >10lbs ALLERGIES No Known Allergies DISCHARGE MEDICATION: Medication List START taking these medications ondansetron 4 mg tablet Commonly known as: ZOFRAN Take 1 tablet by mouth every 8 hours as needed for nausea/vomiting. oxyCODONE IR 5 mg immediate release tablet Commonly known as: ROXICODONE Take 1 tablet by mouth every 6 hours as needed for pain for up to 5 days. CHANGE how you take these medications rivaroxaban 20 mg tablet Commonly known as: XARELTO Take 1 tablet by mouth once daily. Patient should start on July 30, 2024. Start taking on: July 30, 2024 What changed: See the new instructions. CONTINUE taking these medications Ascorbic Acid 100 mg tablet CALCIUM 600 ORAL carvedilol 6.25 mg tablet Commonly known as: COREG Glucosamine-Chondroitin 1,500-1,200 mg/30 mL Liqd predniSONE 5 mg tablet Commonly known as: DELTASONE tamsulosin 0.4 mg Commonly known as: FLOMAX valsartan 80 mg tablet Commonly known as: DIOVAN Where to Get Your Medications These medications were sent to [facility]- [id number] [place] [address] - [address] - [phone] [facility] [address] [place] [facility] [address] ondansetron 4 mg tablet oxyCODONE IR 5 mg immediate release tablet rivaroxaban 20 mg tablet YOU MAY RESUME YOUR ANTICOAGULATION 07/30 FUTURE APPOINTMENTS: Future Appointments Date Time Provider Department Center 08/04/2024 8:15 AM ARRIVAL TIME RADIOLOGY ROSA Koenig 08/04/2024 10:30 AM LAB [facility] Kassie 08/11 (more content not included)... Normal [facility] Basic metabolic 2000 panelon 07-28-2024 Anion gap [Moles/Vol] 9 mmol/L Normal - [facility] Comment on above: Order Comment: Speci men Type: BLOOD SPECIMENOrdering Facility: [facility] Address: [address] [place] [address] Performed By: #### 6 462-6 #### [facility] CLIA [id number] [address] [place] [address] [place] Calcium [Mass/Vol] 8.3 mg/dL Low 8.5-10.2 [facility] Comment on above: Order Comment: Speci men Type: BLOOD SPECIMENOrdering Facility: [facility] Address: [address] [place] [address] Performed By: #### 6 462-6 #### [facility] CLIA [id number] [address] [place] [address] [place] Chloride [Moles/Vol] 104 mmol/L Normal 98-107 [facility] Comment on above: Order Comment: Speci men Type: BLOOD SPECIMENOrdering Facility: [facility] Address: [address] [place] [address] Performed By: #### 6 462-6 #### [facility] CLIA [id number] [address] [place] [address] [place] CO2 [Moles/Vol] 27 mmol/L Normal 22-30 [facility] Comment on above: Order Comment: Speci men Type: BLOOD SPECIMENOrdering Facility: [facility] Address: [address] [place] [address] Performed By: #### 6 462-6 #### [facility] CLIA [id number] [address] [place] [address] [place] Creatinine [Mass/Vol] 0.94 mg/dL Normal 0.73-1.22 [facility] Comment on above: Order Comment: Speci men Type: BLOOD SPECIMENOrdering Facility: [facility] Address: [address] [place] [address] Performed By: #### 6 462-6 #### [facility] CLIA [id number] [address] [place] [address] [place] Creatinine and Glomerular filtration rate.predicted panel (S/P/Bld) 87 mL/min/1.73m??? Normal >=60 [facility] Comment on above: Order Comment: Speci men Type: BLOOD SPECIMENOrdering Facility: [facility] Address: [address] [place] [address] Result Comment: Rebekah mated Glomerular Filtration Rate [...] accurately reflect actual GFR. Performed By: #### 6 462-6 #### [facility] CLIA [id number] [address] [place] [address] [place] Glucose [Mass/Vol] 91 mg/dL Normal 74-99 [facility] Comment on above: Order Comment: Nazairo brooks Type: BLOOD SPECIMENOrdering Facility: [facility] Address: [address] [place] [address] Result Comment: The [place] [employer] (ADA) provides guidance for cutoff values for fasting glucose and random glucose. The ADA defines fasting as no caloric intake for at least 8 hours. Fasting plasma glucose results between 100 to 125 mg/dL indicate increased risk for diabetes (prediabetes). Fasting plasma glucose results greater than or equal to 126 mg/dL meet the criteria for diagnosis of diabetes. In the absence of unequivocal hyperglycemia, results should be confirmed by repeat testing. In a patient with classic symptoms of hyperglycemia or hyperglycemic crisis, random plasma glucose results greater than or equal to 200 mg/dL meet the criteria for diagnosis of diabetes. Reference: Standards of Medical Care in Diabetes 2016, [place] [employer]. Diabetes Care. 2016.39(Suppl 1). Performed By: #### 6 462-6 #### [facility] CLIA [id number] [address] [place] [address] [place] Potassium [Moles/Vol] 3.8 mmol/L Normal 3.7-5.1 [facility] Comment on above: Order Comment: Nazario brooks Type: BLOOD SPECIMENOrdering Facility: [facility] Address: [address] [place] [address] Performed By: #### 6 462-6 #### [facility] CLIA [id number] [address] [place] [address] [place] Sodium [Moles/Vol] 140 mmol/L Normal 136-144 [facility] Comment on above: Order Comment: Speci men Type: BLOOD SPECIMENOrdering Facility: [facility] Address: [address] [place] [address] Performed By: #### 6 462-6 #### [facility] CLIA [id number] [address] [place] [address] [place] Urea nitrogen [Mass/Vol] 17 mg/dL Normal 9-24 [facility] Comment on above: Order Comment: Speci men Type: BLOOD SPECIMENOrdering Facility: [facility] Address: [address] [place] [address] Performed By: #### 6 462-6 #### [facility] CLIA [id number] [address] [place] [address] [place] CBC panel Auto (Bld)on 07-28 Erythrocyte distribution width (RBC) [Ratio] 15.5 % High 11.5-15.0 [facility] Comment on above: Order Comment: Speci men Type: BLOOD SPECIMEN [facility]: [facility] Address: [address] [place] [address] Performed By: #### 3 4528-0, 77104-2 #### [facility] CLIA [id number] [address] [place] [address] [place] Hematocrit (Bld) [Volume fraction] 23.3 % Low 39.0-51.0 [facility] Comment on above: Order Comment: Speci men Type: BLOOD SPECIMEN [facility]ing [facility]: [facility] Address: [address] [place] [address] Performed By: #### 3 4528-0, 46135-3 #### [facility] CLIA [id number] [address] [place] [address] [place] Hemoglobin (Bld) [Mass/Vol] 7.7 g/dL Low 13.0-17.0 [facility] Comment on above: Order Comment: Speci men Type: BLOOD SPECIMEN [facility]ing [facility]: [facility] Address: [address] [place] [address] Performed By: #### 3 4528-0, 64821-1 #### [facility] CLIA [id number] [address] [place] [address] [place] MCH (RBC) [Entitic mass] 31.8 pg Normal 26.0-34.0 [facility] Comment on above: Order Comment: Speci men Type: BLOOD SPECIMEN [facility] Address: [address] [place] [address] Performed By: #### 3 4528-0, 79773-0 #### [facility] CLIA [id number] [address] [place] [address] [place] MCHC (RBC) [Mass/Vol] 33.0 g/dL Normal 30.5-36.0 [facility] Comment on above: Order Comment: Speci men Type: BLOOD SPECIMEN [facility]: [facility] Address: [address] [place] [address] Performed By: #### 3 4528-0, 74164-3 #### [facility] CLIA [id number] [address] [place] [address] [place] MCV (RBC) [Entitic vol] 96.3 fL Normal 80.0-100.0 [facility] Comment on above: Order Comment: Speci men Type: BLOOD SPECIMEN [facility] Address: [address] [place] [address] Performed By: #### 3 4528-0, 34183-2 #### [facility] CLIA [id number] [address] [place] [address] [place] Nucleated RBC (Bld) [#/Vol] 10*3/uL Normal <0.01 [facility] Comment on above: Order Comment: Speci men Type: BLOOD SPECIMEN Ordering [facility]: [facility] Address: [address] [place] [address] Performed By: #### 3 4528-0, 02248-7 #### [facility] CLIA [id number] [place] [address] [place] Platelet mean volume (Bld) [Entitic vol] 10.3 fL Normal 9.0-12.7 [facility] Comment on above: Order Comment: Speci men Type: BLOOD SPECIMEN Ordering [facility]: [facility] Address: [address] [place] [address] Performed By: #### 3 4528-0, 78915-6 #### [facility] CLIA [id number] [address] [place] [address] [place] Platelets (Bld) [#/Vol] 274 10*3/uL Normal 150-400 [facility] Comment on above: Order Comment: Speci men Type: BLOOD SPECIMEN [facility]: [facility] Address: [address] [place] [address] Performed By: #### 3 4528-0, 27655-5 #### [facility] CLIA [id number] [address] [place] [address] [place] RBC (Bld) [#/Vol] 2.42 10*6/uL Low 4.20-6.00 [facility] Comment on above: Order Comment: Speci men Type: BLOOD SPECIMEN [facility] Address: [address] [place] [address] Performed By: #### 3 4528-0, 31499-7 #### [facility] CLIA [id number] [address] [place] [address] [place] WBC (Bld) [#/Vol] 12.39 10*3/uL High 3.70-11.00 [facility] Comment on above: Order Comment: Speci men Type: BLOOD SPECIMEN [facility] Address: [address] [place] [address] Performed By: #### 3 4528-0, 28059-2 #### [facility] CLIA [id number] [place] [address] [place] THERAPY NTon 07-28-2024 THERAPY NT HNO ID: [id number] Author: MILTON MAYA, OT/L Service: Occupational Therapy Author Type: Occupational Therapist Type: Therapy (PT/OT/Speech/Resp) Filed: 07/28/2024 15:23 Note Text: Occupational Therapy Treatment Summary SERVICE DATE: 07/28/2024 SERVICE TIME: 1434 to 1512 ROOM: [place] [address] OT 6 Clicks Score: 20 DISCHARGE RECOMMENDATIONS Home Recommended Discharge Disposition Comments: with assist from family PRN. Anticipated Discharge Needs: Physical Assist at Home Physical Assist at Home for: Cleaning, Laundry, Meals, Shopping, Transportation Recommended Discharge Equipment: ADL Kit ASSESSMENT Response to Therapy Interventions: Good Participation in Activities, Requires Additional Time to Complete Activities Patient receptive and agreeable to OT tx tasks. Reviewed abdominal precautions. CGA with bed mobility - cueing for log roll technique. SBA sit<>stand and mobility in bathroom with FWW. SBA with toilet transfer/toileting tasks and grooming tasks at sink. Reports having ETS/safety frame at home. SBA functional mobility in room/nursing pod with FWW. Education on ETS techniques/pursed lip breathing. Mod A with LB ADLs - education on AE options - patient receptive. PRECAUTIONS Abdominal, Fall Risk, Bed/Chair Alarm, Lines/Tubes/Drains CURRENT HOSPITAL COURSE S/p right hemicolectomy and UHR Relevant Past Medical History: rectal CA, RA, PE HOME LIVING Patient Lives With: Spouse Assistance Available: 24-Hour (spouse and kids live nearby.) Entry To Home: Stairs, With Rail Number Of Stairs Into Home: 3 Number Of Stairs To Bed/Bath: 0 Tub/Shower Type: WIS Laundry: 1st floor - shares with spouse Equipment Owned: Rollator, Grab Bars- Toilet, Hand Held Shower, Elevated Toilet Seat, Director Of Admissions, Shower Chair PRIOR FUNCTIONAL LEVEL Within Functional Limits Patient reports previous indepedence with ADLs, shares IADLs with spouse, ambulates without AD, +drives. SUBJECTIVE Patient receptive and agreeable to OT tx tasks. COGNITION Responsiveness: Alert, Awake Follows Commands: 2-step Commands THERAPY DIAGNOSIS Reduced mobility-other, Decreased activities of daily living (ADL) TREATMENT INTERVENTIONS Self Retirement Management (93108) Timed Code Treatment (minutes): 38 Skilled Treatment Time (minutes): 38 TRAINING AND EDUCATION PROVIDED Activity Adaptation/Compensatory Strategies, Adaptive Equipment/DME, Benefits of In-Hospital Mobility, Discharge Planning, Energy Conservation, Expected Functional Level, Role of Occupational Therapy, Transfer - Sit to Stand, Functional Mobility Involving ADLs, Grooming Tasks, Identification of Systems of Support, Positioning, Precautions/Restriction s, Standing Balance to Improve [place] with ADLs/Self-Care, Toileting , Transfer - Toilet/Commode, Treatment Protocol THERAPEUTIC SKILLS USED Activity Dosing, Cuing Verbal, Movement Facilitation, Muscle Activation Facilitation, Physical Assist, Therapeutic Use of Self, Assessment of Tolerance Including Vitals Response to Activity, Bilateral UE Integration FUNCTIONAL STATUS Activities of Daily Living Assist Level Additional Information Feeding Independent Grooming Stand By Assistance (standing at sink for hand hygiene.) Bathing Upper Body Stand By Assistance Bathing Lower Body Moderate Assistance Dressing Upper Body Set Up Dressing Lower Body Moderate Assistance Toileting Stand By Assistance Mobility Assist Level Additional Information Bed Mobility Sit To Supine: Contact Guard Assistance (cueing for log roll technique; HOB slightly elevated for ease of transfer.) Sit to Stand Stand By Assistance Stand to Sit Stand By Assistance Bed to Chair Stand By Assistance Bed To Chair Transfer Type: Stepping Bed To Chair Transfer Equipment: Wheeled Walker Toilet/Commode Stand By Assistance, Additional Information Shower Functional Mobility Stand By Assistance (Functional mobility in room, BR and nursing pod with FWW with SBA.) Functional Mobility Device: Wheeled Walker GOALS Patient will demonstrate progress with self-care, cognitive and/or coping needs identified to allow safe discharge to home with available support and/or physical assistance. Progress Toward Goals: Progressing as expected Rehab Potential: Good PLAN OT Frequency: 2 Times Per Week (+1 PRN visit (1)) Treatment Interventions: Education, Self Care/Home Management, Energy Conservation Training, Joint Mobility, Strengthening, Functional Mobility Training Plan for Next Visit: Bathing Training, Dressing Training, Standing Tolerance SIGNATURE: Milton Maya OT/Tim PATIENT NAME: Mervat Grayson DATE: July 28, 2024 TIME: 3:22 PM Normal [facility] THERAPY NT HNO ID: [id number] Author: JENNIFER BRISENO PT Service: Physical Therapy Author Type: Physical Therapist Type: Therapy (PT/OT/Speech/Resp) Filed: 07/28/2024 09:33 Note Text: Physical Therapy Treatment Summary SERVICE DATE: 07/28/2024 SERVICE TIME: 845 to 922 [id number] 6 Clicks Score: 22 DISCHARGE RECOMMENDATIONS Home ASSESSMENT Response to Therapy Interventions: Good Participation in Activities Patient continues to tolerate ambulation well with no signs of distress this date. Continuous pulse ox did alarm briefly in the 80s although with poor pulse ox waveform. Returned to high 90s on 3L once seated with accurate waveform. Patient comfortable in chair and progressing well. PRECAUTIONS Abdominal, Fall Risk, Bed/Chair Alarm, Lines/Tubes/Drains CURRENT HOSPITAL COURSE S/p right hemicolectomy and UHR Relevant Past Medical History: rectal CA, RA, PE HOME LIVING Patient Lives With: Spouse Assistance Available: 24-Hour (spouse and kids live nearby.) Entry To Home: Stairs, With Rail Number Of Stairs Into Home: 3 Number Of Stairs To Bed/Bath: 0 Tub/Shower Type: WIS Laundry: 1st floor - shares with spouse Equipment Owned: Rollator, Grab Bars- Toilet, Hand Held Shower, Elevated Toilet Seat, Director Of Admissions PRIOR FUNCTIONAL LEVEL Within Functional Limits Patient reports previous indepedence with ADLs, shares IADLs with spouse, ambulates without AD, +drives. SUBJECTIVE Patient pleasant and agreeable to PT evaluation THERAPY DIAGNOSIS Reduced mobility-other, Decreased activities of daily living (ADL) TREATMENT INTERVENTIONS Therapeutic Activity (92733), Gait Training (27197) Timed Code Treatment (minutes): 27 Skilled Treatment Time (minutes): 27 TRAINING AND EDUCATION PROVIDED Bed Mobility, Anatomy and Impact on Deficits, Assistive Device Use, Discharge Planning, Expected Functional Level, Exercise Program, Pain Neuroscience, Positioning, Precautions/Restriction s, Role of Physical Therapy THERAPEUTIC SKILLS USED Activity Dosing, Cues for Sequencing/Proper Technique for Activity, Assessment of Tolerance Including Vitals Response to Activity, Cuing Tactile, Cuing Visual, Cuing Verbal FUNCTIONAL STATUS Bed Mobility Rolling: Stand By Assistance Supine To Sit: Minimal Assistance, Additional Information EXCELSIOR MACHINE FEEDER for uprighting of trunk Scooting: Stand By Assistance Transfers Sit To Stand: Stand By Assistance Stand To Sit: Stand By Assistance Bed to Chair Gait Stand By Assistance Gait Device: Wheeled Walker General Deviations/Observations : Nicky decreased, Flexed trunk posture, Step length decreased Gait Distance (feet): 500 ft Stairs GOALS Patient will demonstrate understanding of importance of mobility during hospital stay and resolve all functional needs identified. Transfer Supine to/from Sit with: Stand By Assistance Transfer Sit to/from Stand with: Stand By Assistance Ambulate with: Stand By Assistance Distance: 50 ft Device: Wheeled Walker Rehab Potential: Good Progress Toward Goals: Progressing as expected PLAN PT Frequency: 2 Times Per Week Treatment Interventions: Education, Strengthening, Functional Mobility Training, Balance Training, Neuromuscular Re-education, Pain Management Plan for Next Visit: Bed Mobility, Fall Prevention, Gait Training, Standing Balance, Standing Tolerance, Walker Training, Sitting Balance SIGNATURE: Jennifer Briseno PT PATIENT NAME: Mervat Grayson DATE: July 28, 2024 TIME: 9:33 AM [facility] ALLIED HEALTHon 07-27-2024 ALLIED HEALTH HNO ID: [id number] Author: LINK WYATT Chaplain Service: Spiritual Care Author Type: Type: Allied Health Filed: 07/27/2024 09:58 Note Text: SPIRITUAL CARE PROGRESS NOTE SERVICE DATE: 07/27/2024 SERVICE TIME: 834 I met this patient and I listened to his confession, granted him absolution, did the sacrament of the sick, gave him Holy Communion and blessed him. To contact the Spiritual Care Department: Please call [phone]. SIGNATURE: Chaplain Anel PATIENT NAME: Mervat Grayson DATE: July 27, 2024 TIME: 9:56 AM PAGER/CONTACT #: [phone] [facility] Basic metabolic 2000 panelon 07-27-2024 Anion gap [Moles/Vol] 8 mmol/L Normal 8-15 [facility] Comment on above: Order Comment: Speci men Type: BLOOD SPECIMENOrdering Facility: [facility] Address: [address] [place] [address] Performed By: #### 6 462-6 #### [facility] CLIA [id number] [address] [place] [address] [place] Calcium [Mass/Vol] 8.0 mg/dL Low 8.5-10.2 [facility] Comment on above: Order Comment: Speci men Type: BLOOD SPECIMENOrdering Facility: [facility] Address: [address] [place] [address] Performed By: #### 6 462-6 #### [facility] CLIA [id number] [address] [place] [address] [place] Chloride [Moles/Vol] 103 mmol/L Normal 98-107 [facility] Comment on above: Order Comment: Speci men Type: BLOOD SPECIMENOrdering Facility: [facility] Address: [address] [place] [address] Performed By: #### 6 462-6 #### [facility] CLIA [id number] [address] [place] [address] [place] CO2 [Moles/Vol] 27 mmol/L Normal 22-30 [facility] Comment on above: Order Comment: Speci men Type: BLOOD SPECIMENOrdering Facility: [facility] Address: [address] [place] [address] Performed By: #### 6 462-6 #### [facility] CLIA [id number] [address] [place] [address] [place] Creatinine [Mass/Vol] 1.08 mg/dL Normal 0.73-1.22 [facility] Comment on above: Order Comment: Speci men Type: BLOOD SPECIMENOrdering Facility: [facility] Address: [address] [place] [address] Performed By: #### 6 462-6 #### [facility] CLIA [id number] [address] [place] [address] [place] Creatinine and Glomerular filtration rate.predicted panel (S/P/Bld) 73 mL/min/1.73m??? Normal >=60 [facility] Comment on above: Order Comment: Speci men Type: BLOOD SPECIMENOrdering Facility: [facility] Address: [address] [place] [address] Result Comment: Rebekah mated Glomerular Filtration Rate [...] accurately reflect actual GFR. Performed By: #### 6 462-6 #### [facility] CLIA [id number] [address] [place] [address] [place] Glucose [Mass/Vol] 90 mg/dL Normal 74-99 [facility] Comment on above: Order Comment: Speci men Type: BLOOD SPECIMENOrdering Facility: [facility] Address: [address] [place] [address] Result Comment: The [place] [employer] (ADA) provides guidance for cutoff values for fasting glucose and random glucose. The ADA defines fasting as no caloric intake for at least 8 hours. Fasting plasma glucose results between 100 to 125 mg/dL indicate increased risk for diabetes (prediabetes). Fasting plasma glucose results greater than or equal to 126 mg/dL meet the criteria for diagnosis of diabetes. In the absence of unequivocal hyperglycemia, results should be confirmed by repeat testing. In a patient with classic symptoms of hyperglycemia or hyperglycemic crisis, random plasma glucose results greater than or equal to 200 mg/dL meet the criteria for diagnosis of diabetes. Reference: Standards of Medical Care in Diabetes 2016, [place] [employer]. Diabetes Care. 2016.39(Suppl 1). Performed By: #### 6 462-6 #### [facility] CLIA [id number] [address] [place] [address] [place] Potassium [Moles/Vol] 3.7 mmol/L Normal 3.7-5.1 [facility] Comment on above: Order Comment: Isaii men Type: BLOOD SPECIMENOrdering Facility: [facility] Address: [address] [place] [address] Performed By: #### 6 462-6 #### [facility] CLIA [id number] [address] [place] [address] [place] Sodium [Moles/Vol] 138 mmol/L Normal 136-144 [facility] Comment on above: Order Comment: Speci men Type: BLOOD SPECIMENOrdering Facility: [facility] Address: [address] [place] [address] Performed By: #### 6 462-6 #### [facility] CLIA [id number] [address] [place] [address] [place] Urea nitrogen [Mass/Vol] 20 mg/dL Normal 9-24 [facility] Comment on above: Order Comment: Speci men Type: BLOOD SPECIMENOrdering Facility: [facility] Address: [address] [place] [address] Performed By: #### 6 462-6 #### [facility] CLIA [id number] [address] [place] [address] [place] CBC panel Auto (Bld)on 07-27 Erythrocyte distribution width (RBC) [Ratio] 15.6 % High 11.5-15.0 [facility] Comment on above: Order Comment: Speci men Type: BLOOD SPECIMENOrdering Facility: [facility] Address: [address] [place] [address] Performed By: #### 6 462-6 #### [facility] CLIA [id number] [address] [place] [address] [place] Hematocrit (Bld) [Volume fraction] 23.0 % Low 39.0-51.0 [facility] Comment on above: Order Comment: Speci men Type: BLOOD SPECIMENOrdering Facility: [facility] Address: [address] [place] [address] Performed By: #### 6 462-6 #### [facility] CLIA [id number] [address] [place] [address] [place] Hemoglobin (Bld) [Mass/Vol] 7.4 g/dL Low 13.0-17.0 [facility] Comment on above: Order Comment: Speci men Type: BLOOD SPECIMENOrdering Facility: [facility] Address: [address] [place] [address] Performed By: #### 6 462-6 #### [facility] CLIA [id number] [address] [place] [address] [place] MCH (RBC) [Entitic mass] 31.4 pg Normal 26.0-34.0 [facility] Comment on above: Order Comment: Speci men Type: BLOOD SPECIMENOrdering Facility: [facility] Address: [address] [place] [address] Performed By: #### 6 462-6 #### [facility] CLIA [id number] [address] [place] [address] [place] MCHC (RBC) [Mass/Vol] 32.2 g/dL Normal 30.5-36.0 [facility] Comment on above: Order Comment: Speci men Type: BLOOD SPECIMENOrdering Facility: [facility] Address: [address] [place] [address] Performed By: #### 6 462-6 #### [facility] CLIA [id number] [address] [place] [address] [place] MCV (RBC) [Entitic vol] 97.5 fL Normal 80.0-100.0 [facility] Comment on above: Order Comment: Speci men Type: BLOOD SPECIMENOrdering Facility: [facility] Address: [address] [place] [address] Performed By: #### 6 462-6 #### [facility] CLIA [id number] [address] [place] [address] [place] Nucleated RBC (Bld) [#/Vol] 10*3/uL Normal <0.01 [facility] Comment on above: Order Comment: Speci men Type: BLOOD SPECIMENOrdering Facility: [facility] Address: [address] [place] [address] Performed By: #### 6 462-6 #### [facility] CLIA [id number] [address] [place] [address] [place] Platelet mean volume (Bld) [Entitic vol] 10.3 fL Normal 9.0-12.7 [facility] Comment on above: Order Comment: Speci men Type: BLOOD SPECIMENOrdering Facility: [facility] Address: [address] [place] [address] Performed By: #### 6 462-6 #### [facility] CLIA [id number] [address] [place] [address] [place] Platelets (Bld) [#/Vol] 229 10*3/uL Normal 150-400 [facility] Comment on above: Order Comment: Speci men Type: BLOOD SPECIMENOrdering Facility: [facility] Address: [address] [place] [address] Performed By: #### 6 462-6 #### [facility] CLIA [id number] [address] [place] [address] [place] RBC (Bld) [#/Vol] 2.36 10*6/uL Low 4.20-6.00 [facility] Comment on above: Order Comment: Speci men Type: BLOOD SPECIMENOrdering Facility: [facility] Address: [address] [place] [address] Performed By: #### 6 462-6 #### [facility] CLIA [id number] [address] [place] [address] [place] WBC (Bld) [#/Vol] 10.70 10*3/uL Normal 3.70-11.00 [facility] Comment on above: Order Comment: Speci men Type: BLOOD SPECIMENOrdering Facility: [facility] Address: [address] [place] [address] Performed By: #### 6 462-6 #### [facility] CLIA [id number] [address] [place] [address] [place] NURSING PROGon 07-27-2024 NURSING PROG HNO ID: [id number] Author: MARY ISRAEL RN Service: ? Author Type: Registered Nurse Type: Nursing Progress Note Filed: 07/27/2024 06:42 Note Text: 2207: PK1-06: Patient has had 2 BMs in the last hour. Do you want to send a sample? - Mary [id number] 2208: Alvina Teran MD: let's hold off on the sample for now, I think his bowels are just waking up Information passed on to day shift RN. Normal [facility] THERAPY NTon 07-27-2024 THERAPY NT HNO ID: [id number] Author: TRACEY GIRON, OTR/L, OTD Service: Occupational Therapy Author Type: Occupational Therapist Type: Therapy (PT/OT/Speech/Resp) Filed: 07/27/2024 15:25 Note Text: Occupational Therapy Treatment Summary SERVICE DATE: 07/27/2024 SERVICE TIME: 1431 to 1510 ROOM: [place] [address] OT 6 Clicks Score: 20 DISCHARGE RECOMMENDATIONS Home Recommended Discharge Disposition Comments: with assist from family PRN. Anticipated Discharge Needs: Physical Assist at Home Physical Assist at Home for: Cleaning, Laundry, Meals, Shopping, Transportation Recommended Discharge Equipment: Grab Bars-Shower, Shower Chair, Long Handled Sponge ASSESSMENT Response to Therapy Interventions: Good Participation in Activities, Requires Additional Time to Complete Activities PRECAUTIONS Abdominal, Fall Risk, Bed/Chair Alarm, Lines/Tubes/Drains CURRENT HOSPITAL COURSE S/p right hemicolectomy and UHR Relevant Past Medical History: rectal CA, RA, PE HOME LIVING Patient Lives With: Spouse Assistance Available: 24-Hour (spouse and kids live nearby.) Entry To Home: Stairs, With Rail Number Of Stairs Into Home: 3 Number Of Stairs To Bed/Bath: 0 Tub/Shower Type: WIS Laundry: 1st floor - shares with spouse Equipment Owned: Rollator, Grab Bars- Toilet, Hand Held Shower, Elevated Toilet Seat, Director Of Admissions PRIOR FUNCTIONAL LEVEL Within Functional Limits Patient reports previous indepedence with ADLs, shares IADLs with spouse, ambulates without AD, +drives. SUBJECTIVE I want to shave! COGNITION Responsiveness: Alert, Awake Follows Commands: 2-step Commands THERAPY DIAGNOSIS Reduced mobility-other, Decreased activities of daily living (ADL) TREATMENT INTERVENTIONS Self Retirement Management (49300) Timed Code Treatment (minutes): 39 Skilled Treatment Time (minutes): 39 TRAINING AND EDUCATION PROVIDED Activity Adaptation/Compensatory Strategies, Adaptive Equipment/DME, Benefits of In-Hospital Mobility, Discharge Planning, Energy Conservation, Expected Functional Level, Role of Occupational Therapy, Transfer - Sit to Stand, Functional Mobility Involving ADLs, Grooming Tasks, Identification of Systems of Support, Positioning, Precautions/Restriction s, Standing Balance to Improve [place] with ADLs/Self-Care, Toileting , Transfer - Toilet/Commode, Treatment Protocol THERAPEUTIC SKILLS USED Activity Dosing, Cuing Verbal, Movement Facilitation, Muscle Activation Facilitation, Physical Assist, Therapeutic Use of Self, Assessment of Tolerance Including Vitals Response to Activity, Bilateral UE Integration FUNCTIONAL STATUS Activities of Daily Living Assist Level Additional Information Feeding Independent Grooming Set Up, Additional Information standing at sink initially then requesting to sit; pt desatting to 80s (questionable probe read, RN present) pt bumped to 4L, >90% SpO2 throughout remainder of session, returned to 3L at end of session Bathing Upper Body Stand By Assistance Bathing Lower Body Moderate Assistance Dressing Upper Body Set Up Dressing Lower Body Moderate Assistance Toileting Stand By Assistance, Additional Information completing own shikha care Mobility Assist Level Additional Information Bed Mobility Sit To Supine: Minimal Assistance Sit to Stand Stand By Assistance Stand to Sit Stand By Assistance Bed to Chair Stand By Assistance Bed To Chair Transfer Type: Stepping Bed To Chair Transfer Equipment: Wheeled Walker Toilet/Commode Stand By Assistance, Additional Information vcs to use grab bar to assist with descent Shower Functional Mobility Stand By Assistance Functional Mobility Device: Wheeled Walker GOALS Patient will demonstrate progress with self-care, cognitive and/or coping needs identified to allow safe discharge to home with available support and/or physical assistance. Progress Toward Goals: Progressing as expected Rehab Potential: Good PLAN OT Frequency: 2 Times Per Week (+1 PRN visit (1)) Treatment Interventions: Education, Self Care/Home Management, Energy Conservation Training, Joint Mobility, Strengthening, Functional Mobility Training Plan for Next Visit: Bathing Training, Dressing Training, Standing Tolerance SIGNATURE: VERN Patel, EDITH PATIENT NAME: Mervat Graysno DATE: July 27, 2024 TIME: 3:25 PM [facility] ALLIED HEALTHon 07-26-2024 ALLIED HEALTH HNO ID: [id number] Author: FABRICIO LAL RT(R) Service: Radiology Author Type: Technologist Type: Allied Health Filed: 07/26/2024 21:47 Note Text: Radiology Service Progress Note PATIENT NAME: Mervat Grayson DATE OF SERVICE: July 26, 2024 TIME: 9:47 PM PATIENT IDENTITY VERIFICATION COMPLETED USING TWO (2) IDENTIFIERS: Name and Date of confirmed by patient verbally and Name and Date of confirmed by identification band. FALL SCREENING: Has the patient had 2 falls in the last year or 1 fall with injury or currently using an Ambulatory Assistive Device (Walker, Cane, Wheelchair, Crutches, etc.)? Inpatient: Screened on floor PATIENT GENDER DATA: Male PATIENT RELEVANT IMPLANT DATA REVIEWED: Not Applicable PATIENT PRESENTS WITH AN IMPLANTABLE OR ATTACHED DRAINAGE ENGINEER: No RADIOLOGY DEPARTMENT: General X-ray: Exam(s) Completed: Abdomen X-Ray: Abdomen PERIPHERAL IV DATA: Not applicable SIGNED BY: RT Omar(R) July 26, 2024 9:47 PM Normal [facility] Basic metabolic 2000 panelon 07-26-2024 Anion gap [Moles/Vol] 7 mmol/L Low 8-15 [facility] Comment on above: Order Comment: Speci men Type: BLOOD SPECIMEN [facility] Address: [address] [place] [address] Performed By: #### 2 4321-2 #### [facility] CLIA [id number] [address] [place] [address] [place] Calcium [Mass/Vol] 8.2 mg/dL Low 8.5-10.2 [facility] Comment on above: Order Comment: Speci men Type: BLOOD SPECIMEN [facility] Address: [address] [place] [address] Performed By: #### 2 4321-2 #### [facility] CLIA [id number] [address] [place] [address] [place] Chloride [Moles/Vol] 106 mmol/L Normal 98-107 [facility] Comment on above: Order Comment: Speci men Type: BLOOD SPECIMEN [facility] Address: [address] [place] [address] Performed By: #### 2 4321-2 #### [facility] CLIA [id number] [address] [place] [address] [place] CO2 [Moles/Vol] 29 mmol/L Normal 22-30 [facility] Comment on above: Order Comment: Nazario brooks Type: BLOOD SPECIMEN [facility] Address: [address] [place] [address] Performed By: #### 2 4321-2 #### [facility] CLIA [id number] [place] [address] [place] Creatinine [Mass/Vol] 1.18 mg/dL Normal 0.73-1.22 [facility] Comment on above: Order Comment: Isiai men Type: BLOOD SPECIMEN [facility] Address: [address] [place] [address] Performed By: #### 2 4321-2 #### [facility] CLIA [id number] [address] [place] [address] [place] Creatinine and Glomerular filtration rate.predicted panel (S/P/Bld) 66 mL/min/1.73m??? Normal >=60 [facility] Comment on above: Order Comment: Isaii men Type: BLOOD SPECIMEN [facility] Address: [address] [place] [address] Result Comment: Rebekah mated Glomerular Filtration Rate [...] actual GFR. Performed By: #### 2 4321-2 #### [facility] CLIA [id number] [address] [place] [address] [place] Glucose [Mass/Vol] 95 mg/dL Normal 74-99 [facility] Comment on above: Order Comment: Isaii todd Type: BLOOD SPECIMEN [facility] Address: [address] [place] [address] Result Comment: The [place] [employer] (ADA) provides guidance for cutoff values for fasting glucose and random glucose. The ADA defines fasting as no caloric intake for at least 8 hours. Fasting plasma glucose results between 100 to 125 mg/dL indicate increased risk for diabetes (prediabetes). Fasting plasma glucose results greater than or equal to 126 mg/dL meet the criteria for diagnosis of diabetes. In the absence of unequivocal hyperglycemia, results should be confirmed by repeat testing. In a patient with classic symptoms of hyperglycemia or hyperglycemic crisis, random plasma glucose results greater than or equal to 200 mg/dL meet the criteria for diagnosis of diabetes. Reference: Standards of Medical Care in Diabetes 2016, [place] [employer]. Diabetes Care. 2016.39(Suppl 1). Performed By: #### 2 4321-2 #### [facility] CLIA [id number] [address] [place] [address] [place] Potassium [Moles/Vol] 3.6 mmol/L Low 3.7-5.1 [facility] Comment on above: Order Comment: Nazario brooks Type: BLOOD SPECIMEN [facility] Address: [address] [place] [address] Performed By: #### 2 4321-2 #### [facility] CLIA [id number] [address] [place] [address] [place] Sodium [Moles/Vol] 142 mmol/L Normal 136-144 [facility] Comment on above: Order Comment: Nazario brooks Type: BLOOD SPECIMEN [facility] Address: [address] [place] [address] Performed By: #### 2 4321-2 #### [facility] CLIA [id number] [address] [place] [address] [place] Urea nitrogen [Mass/Vol] 18 mg/dL Normal 9-24 [facility] Comment on above: Order Comment: Nazario brooks Type: BLOOD SPECIMEN [facility] Address: [address] [place] [address] Performed By: #### 2 4321-2 #### [facility] CLIA [id number] [address] [place] [address] [place] CBC panel Auto (Bld)on 07-26 Erythrocyte distribution width (RBC) [Ratio] 15.8 % High 11.5-15.0 [facility] Comment on above: Order Comment: Speci men Type: BLOOD SPECIMEN [facility] Address: [address] [place] [address] Performed By: #### 2 4321-2 #### [facility] CLIA [id number] [address] [place] [address] [place] Hematocrit (Bld) [Volume fraction] 24.5 % Low 39.0-51.0 [facility] Comment on above: Order Comment: Speci men Type: BLOOD SPECIMEN [facility] Address: [address] [place] [address] Performed By: #### 2 4321-2 #### [facility] CLIA [id number] [address] [place] [address] [place] Hemoglobin (Bld) [Mass/Vol] 8.0 g/dL Low 13.0-17.0 [facility] Comment on above: Order Comment: Speci men Type: BLOOD SPECIMEN [facility] Address: [address] [place] [address] Performed By: #### 2 4321-2 #### [facility] CLIA [id number] [address] [place] [address] [place] MCH (RBC) [Entitic mass] 31.6 pg Normal 26.0-34.0 [facility] Comment on above: Order Comment: Speci men Type: BLOOD SPECIMEN [facility] Address: [address] [place] [address] Performed By: #### 2 4321-2 #### [facility] CLIA [id number] [address] [place] [address] [place] MCHC (RBC) [Mass/Vol] 32.7 g/dL Normal 30.5-36.0 [facility] Comment on above: Order Comment: Speci men Type: BLOOD SPECIMEN [facility] Address: [address] [place] [address] Performed By: #### 2 4321-2 #### [facility] CLIA [id number] [address] [place] [address] [place] MCV (RBC) [Entitic vol] 96.8 fL Normal 80.0-100.0 [facility] Comment on above: Order Comment: Speci men Type: BLOOD SPECIMEN [facility] Address: [address] [place] [address] Performed By: #### 2 4321-2 #### [facility] CLIA [id number] [address] [place] [address] [place] Nucleated RBC (Bld) [#/Vol] 10*3/uL Normal <0.01 [facility] Comment on above: Order Comment: Speci men Type: BLOOD SPECIMEN [facility] Address: [address] [place] [address] Performed By: #### 2 4321-2 #### [facility] CLIA [id number] [address] [place] [address] [place] Platelet mean volume (Bld) [Entitic vol] 10.5 fL Normal 9.0-12.7 [facility] Comment on above: Order Comment: Speci men Type: BLOOD SPECIMEN [facility] Address: [address] [place] [address] Performed By: #### 2 4321-2 #### [facility] CLIA [id number] [address] [place] [address] [place] Platelets (Bld) [#/Vol] 212 10*3/uL Normal 150-400 [facility] Comment on above: Order Comment: Speci men Type: BLOOD SPECIMEN [facility] Address: [address] [place] [address] Performed By: #### 2 4321-2 #### [facility] CLIA [id number] [address] [place] [address] [place] RBC (Bld) [#/Vol] 2.53 10*6/uL Low 4.20-6.00 [facility] Comment on above: Order Comment: Speci men Type: BLOOD SPECIMEN [facility] Address: [address] [place] [address] Performed By: #### 2 4321-2 #### [facility] CLIA [id number] [address] [place], [place] [address] [place] WBC (Bld) [#/Vol] 11.49 10*3/uL High 3.70-11.00 [facility] Comment on above: Order Comment: Speci men Type: BLOOD SPECIMEN [facility]: [facility] Address: [address] [place] [address] Performed By: #### 2 4321-2 #### [facility] CLIA [id number] [address] [place], [place] [address] [place] Magnesium SerPl-mCncon 07-26 Magnesium [Mass/Vol] 1.9 mg/dL Normal 1.7-2.3 [facility] Comment on above: Order Comment: Speci men Type: BLOOD SPECIMENOrdering Facility: [facility] Address: [address] [place] [address] Performed By: #### 6 462-6 #### [facility] CLIA [id number] [address] [place] [address] [id number] [place] [address] [place] NURSING PROGon 07-26-2024 NURSING PROG HNO ID: [id number] Author: JACLYN BARRON, ALEXUS Service: Nursing Author Type: Registered Nurse Type: Nursing Progress Note Filed: 07/26/2024 18:28 Note Text: Other: BP 90/49 up in chair and patient back to bed. Rechecked lying down and 107/49. Page out to residential therapist team. Dr. Chopra is aware of recent BP's , no orders received, continue to monitor 1200 Sepsis alert and page sent to LIP. 1500 3 beats of V Tach and multiple PVC's surgical team paged. 1830 BP rechecked after 500ml Bolus and page out to provider per order Normal [facility] Phosphate SerPl-mCncon 07-26 Phosphate [Mass/Vol] 3.4 mg/dL Normal 2.7-4.8 [facility] Comment on above: Order Comment: Speci men Type: BLOOD SPECIMENOrdering Facility: [facility] Address: [address] [place] [address] Performed By: #### 6 462-6 #### [facility] CLIA [id number] [address] [place] [address] [place] XR ABDOMEN 1V SUPINEon 07-26 XR ABDOMEN 1V SUPINE * * *Final Report* * * DATE OF EXAM: Jul 26 2024 9:44PM FVX [id number] - XR ABDOMEN 1V SUPINE / PROCEDURE REASON: Evaluate tube, line or lead position * * * * Physician Interpretation * * * * EXAMINATION: XR ABDOMEN 1V SUPINE CLINICAL HISTORY: NG tube Technique: XR ABDOMEN 1V SUPINE -- NOT APPLICABLE with 1 views on 1 images DATE:07/26/2024 10:49 PM Comparison: 07/25/2024 abdominal radiograph. RESULT: The distal tip of the NG tube and the sidehole terminate below the diaphragm object over the region of the gastric antrum and body respectively. Bibasilar opacities with suggestion of bilateral pleural effusions. Bowel with interval decrease in caliber of the visualized bowel loops. The included segment of the transverse colon and splenic flexure are not distended. IMPRESSION:Small bowel distention with interval decrease in caliber of the bowel loops. Services Manager: PSCB Transcribe Date/Time: Jul 26 2024 10:49P Dictated by : CARL LOPEZ MD This examination was interpreted and the report reviewed and electronically signed by: CARL LOPEZ MD on Jul 26 2024 10:52PM EST [id number] [facility] ALLIED HEALTHon 07-25-2024 ALLIED HEALTH HNO ID: [id number] Author: CHERYLE GEORGES RT(R) Service: Radiology Author Type: Technologist Type: Allied Health Filed: 07/25/2024 19:11 Note Text: Radiology Service Progress Note PATIENT NAME: Mervat Grayson DATE OF SERVICE: July 25, 2024 TIME: 7:11 PM PATIENT IDENTITY VERIFICATION COMPLETED USING TWO (2) IDENTIFIERS: Name and Date of confirmed by patient verbally and Name and Date of confirmed by identification band. FALL SCREENING: Has the patient had 2 falls in the last year or 1 fall with injury or currently using an Ambulatory Assistive Device (Walker, Cane, Wheelchair, Crutches, etc.)? Emergency Room Patient: Screened in ED PATIENT GENDER DATA: Male PATIENT RELEVANT IMPLANT DATA REVIEWED: Not Applicable PATIENT PRESENTS WITH AN IMPLANTABLE OR ATTACHED DRAINAGE ENGINEER: No RADIOLOGY DEPARTMENT: General X-ray: Exam(s) Completed: Abdomen X-Ray: Abdomen PERIPHERAL IV DATA: Not applicable SIGNED BY: Cheryle Georges RT(R) July 25, 2024 7:11 PM Normal [facility] Basic metabolic 2000 panelon 07-25-2024 Anion gap [Moles/Vol] 7 mmol/L Low 8-15 [facility] Comment on above: Order Comment: Speci men Type: BLOOD SPECIMENOrdering Facility: [facility] Address: [address] [place] [address] Performed By: #### 2 4321-2 ####[facility] LABORATORYCLIA [id number] [place] [address] [place] Calcium [Mass/Vol] 8.3 mg/dL Low 8.5-10.2 [facility] Comment on above: Order Comment: Speci men Type: BLOOD SPECIMENOrdering Facility: [facility] Address: [address] [place] [address] Performed By: #### 2 4321-2 ####[facility] LABORATORYCLIA [id number] [place] [address] [place] Chloride [Moles/Vol] 106 mmol/L Normal 98-107 [facility] Comment on above: Order Comment: Speci men Type: BLOOD SPECIMENOrdering Facility: [facility] Address: [address] [place] [address] Performed By: #### 2 4321-2 ####[facility] LABORATORYCLIA [id number] [place] [id number] [place] CO2 [Moles/Vol] 28 mmol/L Normal 22-30 [facility] Comment on above: Order Comment: Speci men Type: BLOOD SPECIMENOrdering Facility: [facility] Address: [address] [place] [address] Performed By: #### 2 4321-2 ####[facility] LABORATORYCLIA [id number] [place] [id number] [place] Creatinine [Mass/Vol] 1.23 mg/dL High 0.73-1.22 [facility] Comment on above: Order Comment: Nazario todd Type: BLOOD SPECIMENOrdering Facility: [facility] Address: [address] [place] [address] Performed By: #### 2 4321-2 ####[facility] LABORATORYCLIA [id number] [place] [id number] [place] [facility] Creatinine and Glomerular filtration rate.predicted panel (S/P/Bld) 63 mL/min/1.73m??? Normal >=60 [facility] Comment on above: Order Comment: Isaiamador brooks Type: BLOOD SPECIMENOrdering Facility: [facility] Address: [address] [place] [address] Result Comment: Rebekah mated Glomerular Filtration Rate [...] actual GFR. Performed By: #### 2 4321-2 ####[facility] LABORATORYCLIA [id number] [place] [id number] [place] Glucose [Mass/Vol] 96 mg/dL Normal 74-99 [facility] Comment on above: Order Comment: Isaiamador brooks Type: BLOOD SPECIMENOrdering Facility: [facility] Address: [address] [place] [address] Result Comment: The [place] [employer] (ADA) provides guidance for cutoff values for fasting glucose and random glucose. The ADA defines fasting as no caloric intake for at least 8 hours. Fasting plasma glucose results between 100 to 125 mg/dL indicate increased risk for diabetes (prediabetes). Fasting plasma glucose results greater than or equal to 126 mg/dL meet the criteria for diagnosis of diabetes. In the absence of unequivocal hyperglycemia, results should be confirmed by repeat testing. In a patient with classic symptoms of hyperglycemia or hyperglycemic crisis, random plasma glucose results greater than or equal to 200 mg/dL meet the criteria for diagnosis of diabetes. Reference: Standards of Medical Care in Diabetes 2016, [place] [employer]. Diabetes Care. 2016.39(Suppl 1). Performed By: #### 2 4321-2 ####[facility] LABORATORYCLIA [id number] [place] [id number] [place] Potassium [Moles/Vol] 4.0 mmol/L Normal 3.7-5.1 [facility] Comment on above: Order Comment: Speci men Type: BLOOD SPECIMENOrdering Facility: [facility] Address: [address] [place] [address] Performed By: #### 2 4321-2 ####[facility] LABORATORYCLIA [id number] [place] [id number] [place] Sodium [Moles/Vol] 141 mmol/L Normal 136-144 [facility] Comment on above: Order Comment: Speci men Type: BLOOD SPECIMENOrdering Facility: [facility] Address: [address] [place] [address] Performed By: #### 2 4321-2 ####[facility] LABORATORYCLIA [id number] [place] [id number] [place] Urea nitrogen [Mass/Vol] 19 mg/dL Normal 9-24 [facility] Comment on above: Order Comment: Speci men Type: BLOOD SPECIMENOrdering Facility: [facility] Address: [address] [place] [address] Performed By: #### 2 4321-2 ####[facility] LABORATORYCLIA [id number] [place] [id number] [place] CBC panel Auto (Bld)on 07-25 Erythrocyte distribution width (RBC) [Ratio] 15.8 % High 11.5-15.0 [facility] Comment on above: Order Comment: Speci men Type: BLOOD SPECIMENOrdering Facility: [facility] Address: [address] [place] [address] Performed By: #### 6 00-7 #### [facility] CLIA [id number] [address] [place], [place] [address] [place] [address] [place] Hematocrit (Bld) [Volume fraction] 22.3 % Low 39.0-51.0 [facility] Comment on above: Order Comment: Speci men Type: BLOOD SPECIMENOrdering Facility: [facility] Address: [address] [place] [address] Performed By: #### 6 00-7 #### [facility] CLIA [id number] [address] [place] [address] [place] Hemoglobin (Bld) [Mass/Vol] 7.6 g/dL Low 13.0-17.0 [facility] Comment on above: Order Comment: Speci men Type: BLOOD SPECIMENOrdering Facility: [facility] Address: [address] [place] [address] Performed By: #### 6 00-7 #### [facility] CLIA [id number] [address] [place] [address] [place] MCH (RBC) [Entitic mass] 32.3 pg Normal 26.0-34.0 [facility] Comment on above: Order Comment: Speci men Type: BLOOD SPECIMENOrdering Facility: [facility] Address: [address] [place] [address] Performed By: #### 6 00-7 #### [facility] CLIA [id number] [address] [place] [address] [place] MCHC (RBC) [Mass/Vol] 34.1 g/dL Normal 30.5-36.0 [facility] Comment on above: Order Comment: Speci men Type: BLOOD SPECIMENOrdering Facility: [facility] Address: [address] [place] [address] Performed By: #### 6 00-7 #### [facility] CLIA [id number] [address] [place] [address] [place] MCV (RBC) [Entitic vol] 94.9 fL Normal 80.0-100.0 [facility] Comment on above: Order Comment: Speci men Type: BLOOD SPECIMENOrdering Facility: [facility] Address: [address] [place] [address] Performed By: #### 6 00-7 #### [facility] CLIA [id number] [address] [place] [address] [place] Nucleated RBC (Bld) [#/Vol] 10*3/uL Normal <0.01 [facility] Comment on above: Order Comment: Speci men Type: BLOOD SPECIMENOrdering Facility: [facility] Address: [address] [place] [address] Performed By: #### 6 00-7 #### [facility] CLIA [id number] [address] [place] [address] [place] Platelet mean volume (Bld) [Entitic vol] 11.0 fL Normal 9.0-12.7 [facility] Comment on above: Order Comment: Speci men Type: BLOOD SPECIMENOrdering Facility: [facility] Address: [address] [place] [address] Performed By: #### 6 -7 #### [facility] CLIA [id number] [address] [place] [address] [place] Platelets (Bld) [#/Vol] 174 10*3/uL Normal 150-400 [facility] Comment on above: Order Comment: Speci men Type: BLOOD SPECIMENOrdering Facility: [facility] Address: [address] [place] [address] Performed By: #### 6 -7 #### [facility] CLIA [id number] [address] [place] [address] [place] RBC (Bld) [#/Vol] 2.35 10*6/uL Low 4.20-6.00 [facility] Comment on above: Order Comment: Speci men Type: BLOOD SPECIMENOrdering Facility: [facility] Address: [address] [place] [address] Performed By: #### 6 00-7 #### [facility] CLIA [id number] [address] [place] [address] [place] WBC (Bld) [#/Vol] 14.03 10*3/uL High 3.70-11.00 [facility] Comment on above: Order Comment: Speci men Type: BLOOD SPECIMENOrdering Facility: [facility] Address: [address] [place] [address] Performed By: #### 6 00-7 #### [facility] CLIA [id number] [address] [place] [address] [place] NURSING PROGon 07-25-2024 NURSING PROG HNO ID: [id number] Author: JACLYN BARRON, RN Service: Nursing Author Type: Registered Nurse Type: Nursing Progress Note Filed: 07/25/2024 18:54 Note Text: Other: 1400 Abdomen noted to have increased distention, 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 1435 Surgical HO up to see for distention and notified of SAO2 86% when ambulating on 2 liters N/C 1710 patient complains of increased nausea and increased pain in Abdomen , Surgical team made aware and will be up to evaluate. 1745 Surgical team up to see. 1810 NG inserted in right Nares by Dr. De La Torre and KUB ordered. 1855 KUB done at bedside. Normal [facility] XR ABDOMEN 1V SUPINEon 07-25 XR ABDOMEN 1V SUPINE * * *Final Report* * * DATE OF EXAM: Jul 25 2024 7:08PM FVX [id number] - XR ABDOMEN 1V SUPINE / PROCEDURE REASON: Evaluate tube, line or lead position * * * * Physician Interpretation * * * * EXAMINATION: XR ABDOMEN 1V SUPINE CLINICAL HISTORY: Evaluate tube, line or lead position Technique: XR ABDOMEN 1V SUPINE -- with 1 views on 1 images Comparison: None RESULT: What is presumed to be the enteric tube is seen in the distal esophagus. This will need to be advanced. Gaseous distention of multiple loops of small bowel measuring up to 5.9 cm. IMPRESSION: What is presumed to be the enteric tube is seen with tip in the distal esophagus. This will need to be advanced. Gaseous distention of multiple loops of small bowel. Could reflect postoperative ileus versus obstruction. Services Manager: SHARON Transcribe Date/Time: Jul 26 2024 8:12A Dictated by : SWAPNA VAZQUEZ MD This examination was interpreted and the report reviewed and electronically signed by: SWAPNA VAZQUEZ MD on Jul 26 2024 8:15AM EST [id number] Normal [facility] Basic metabolic 2000 panelon 07-24-2024 Anion gap [Moles/Vol] 7 mmol/L Low 8-15 [facility] Comment on above: Order Comment: Speci men Type: BLOOD SPECIMENOrdering Facility: [facility] Address: [address] [place] [address] Performed By: #### 1 9123-9, 61402-0, 2776- ####[facility] LABORATORYCLIA [id number] [place] [id number] [place] Calcium [Mass/Vol] 8.1 mg/dL Low 8.5-10.2 [facility] Comment on above: Order Comment: Speci men Type: BLOOD SPECIMENOrdering Facility: [facility] Address: [address] [place] [address] Performed By: #### 1 9123-9, 61981-9, 2776- ####[facility] LABORATORYCLIA [id number] [place] [id number] [place] Chloride [Moles/Vol] 105 mmol/L Normal 98-107 [facility] Comment on above: Order Comment: Speci men Type: BLOOD SPECIMENOrdering Facility: [facility] Address: [address] [place] [address] Performed By: #### 1 9123-9, 85694-5, 2776- ####[facility] LABORATORYCLIA [id number] [place] [address] [place] CO2 [Moles/Vol] 27 mmol/L Normal 22-30 [facility] Comment on above: Order Comment: Speci men Type: BLOOD SPECIMENOrdering Facility: [facility] Address: [address] [place] [address] Performed By: #### 1 9123-9, 95222-8, 2776-1 ####[facility] LABORATORYCLIA [id number] [place] [address] [place] Creatinine [Mass/Vol] 1.17 mg/dL Normal 0.73-1.22 [facility] Comment on above: Order Comment: Nazario brooks Type: BLOOD SPECIMENOrdering Facility: [facility] Address: [address] [place] [address] Performed By: #### 1 9123-9, 77798-7, 2776- ####[facility] LABORATORYCLIA [id number] [place] [address] [place] Creatinine and Glomerular filtration rate.predicted panel (S/P/Bld) 67 mL/min/1.73m??? Normal >=60 [facility] Comment on above: Order Comment: Nazario brooks Type: BLOOD SPECIMENOrdering Facility: [facility] Address: [address] [place] [address] Result Comment: Rebekah mated Glomerular Filtration Rate [...] actual GFR. Performed By: #### 1 9123-9, 36619-1, 2776-10 ####[facility] LABORATORYCLIA [id number] [place] [id number] [place] Glucose [Mass/Vol] 127 mg/dL High 74-99 [facility] Comment on above: Order Comment: Nazario brooks Type: BLOOD SPECIMENOrdering Facility: [facility] Address: [address] [place] [address] Result Comment: The [place] [employer] (ADA) provides guidance for cutoff values for fasting glucose and random glucose. The ADA defines fasting as no caloric intake for at least 8 hours. Fasting plasma glucose results between 100 to 125 mg/dL indicate increased risk for diabetes (prediabetes). Fasting plasma glucose results greater than or equal to 126 mg/dL meet the criteria for diagnosis of diabetes. In the absence of unequivocal hyperglycemia, results should be confirmed by repeat testing. In a patient with classic symptoms of hyperglycemia or hyperglycemic crisis, random plasma glucose results greater than or equal to 200 mg/dL meet the criteria for diagnosis of diabetes. Reference: Standards of Medical Care in Diabetes 2016, [place] [employer]. Diabetes Care. 2016.39(Suppl 1). Performed By: #### 1 9123-9, 80197-6, 2776- ####[facility] LABORATORYCLIA [id number] [place] [address] [place] Potassium [Moles/Vol] 4.0 mmol/L Normal 3.7-5.1 [facility] Comment on above: Order Comment: Speci men Type: BLOOD SPECIMENOrdering Facility: [facility] Address: [address] [place] [address] Performed By: #### 1 9123-9, 04489-5, 2776- ####[facility] LABORATORYCLIA [id number] [place] [id number] [place] Sodium [Moles/Vol] 139 mmol/L Normal 136-144 [facility] Comment on above: Order Comment: Speci men Type: BLOOD SPECIMENOrdering Facility: [facility] Address: [address] [place] [address] Performed By: #### 1 9123-9, 33272-0, 2776-10 ####[facility] LABORATORYCLIA [id number] [place] [id number] [place] Urea nitrogen [Mass/Vol] 15 mg/dL Normal 9-24 [facility] Comment on above: Order Comment: Speci men Type: BLOOD SPECIMENOrdering Facility: [facility] Address: [address] [place] [address] Performed By: #### 1 9123-9, 10320-3, 2776- ####[facility] LABORATORYCLIA [id number] [place] [id number] [place] CBC panel Auto (Bld)on 07-24 Erythrocyte distribution width (RBC) [Ratio] 15.8 % High 11.5-15.0 [facility] Comment on above: Order Comment: Speci men Type: BLOOD SPECIMENOrdering Facility: [facility] Address: [address] [place] [address] Performed By: #### 5 8410-2 ####[facility] LABORATORYCLIA [id number] [place] [address] [place] Hematocrit (Bld) [Volume fraction] 23.3 % Low 39.0-51.0 [facility] Comment on above: Order Comment: Speci men Type: BLOOD SPECIMENOrdering Facility: [facility] Address: [address] [place] [address] Performed By: #### 5 8410-2 ####[facility] LABORATORYCLIA [id number] [place] [address] [place] Hemoglobin (Bld) [Mass/Vol] 7.8 g/dL Low 13.0-17.0 [facility] Comment on above: Order Comment: Speci men Type: BLOOD SPECIMENOrdering Facility: [facility] Address: [address] [place] [address] Performed By: #### 5 8410-2 ####[facility] LABORATORYCLIA [id number] [address] [place] MCH (RBC) [Entitic mass] 31.7 pg Normal 26.0-34.0 [facility] Comment on above: Order Comment: Speci men Type: BLOOD SPECIMENOrdering Facility: [facility] Address: [address] [place] [address] Performed By: #### 5 8410-2 ####[facility] LABORATORYCLIA [id number] [place] [address] [place] MCHC (RBC) [Mass/Vol] 33.5 g/dL Normal 30.5-36.0 [facility] Comment on above: Order Comment: Speci men Type: BLOOD SPECIMENOrdering Facility: [facility] Address: [address] [place] [address] Performed By: #### 5 8410-2 ####[facility] LABORATORYCLIA [id number] [address] [place] MCV (RBC) [Entitic vol] 94.7 fL Normal 80.0-100.0 [facility] Comment on above: Order Comment: Speci men Type: BLOOD SPECIMENOrdering Facility: [facility] Address: [address] [place] [address] Performed By: #### 5 8410-2 ####[facility] LABORATORYCLIA [id number] [place] [id number] [place] Nucleated RBC (Bld) [#/Vol] 10*3/uL Normal <0.01 [facility] Comment on above: Order Comment: Speci men Type: BLOOD SPECIMENOrdering Facility: [facility] Address: [address] [place] [address] Performed By: #### 5 8410-2 ####[facility] LABORATORYCLIA [id number] [place] [address] [place] Platelet mean volume (Bld) [Entitic vol] 10.7 fL Normal 9.0-12.7 [facility] Comment on above: Order Comment: Speci men Type: BLOOD SPECIMENOrdering Facility: [facility] Address: [address] [place] [address] Performed By: #### 5 8410-2 ####[facility] LABORATORYCLIA [id number] [place] [address] [place] Platelets (Bld) [#/Vol] 146 10*3/uL Low 150-400 [facility] Comment on above: Order Comment: Speci men Type: BLOOD SPECIMENOrdering Facility: [facility] Address: [address] [place] [address] Performed By: #### 5 8410-2 ####[facility] LABORATORYCLIA [id number] [place] [id number] [place] RBC (Bld) [#/Vol] 2.46 10*6/uL Low 4.20-6.00 [facility] Comment on above: Order Comment: Speci men Type: BLOOD SPECIMENOrdering Facility: [facility] Address: [address] [place] [address] Performed By: #### 5 8410-2 ####[facility] LABORATORYCLIA [id number] [place] [address] WBC (Bld) [#/Vol] 16.72 10*3/uL High 3.70-11.00 [facility] Comment on above: Order Comment: Speci men Type: BLOOD SPECIMENOrdering Facility: [facility] Address: [address] [place] [address] Performed By: #### 5 8410-2 ####[facility] LABORATORYCLIA [id number] [address] Magnesium SerPl-mCncon 07-24 Magnesium [Mass/Vol] 2.1 mg/dL Normal 1.7-2.3 [facility] Comment on above: Order Comment: Speci men Type: BLOOD SPECIMENOrdering Facility: [facility] Address: [address] [place] [address] Performed By: #### 1 9123-9, 53184-3, 2777-1 ####[facility] LABORATORYCLIA [id number] [address] NUTRITIONon 07-24-2024 NUTRITION HNO ID: [id number] Author: SONAM PALOMINO RD Service: Nutrition Therapy Author Type: Registered Dietitian Type: Nutrition Filed: 07/24/2024 11:01 Note Text: NUTRITION THERAPY PATIENT EDUCATION TOPIC: Diet: GI Soft PATIENT NAME: Mervat Grayson SERVICE DATE: July 24, 2024 READINESS TO LEARN Cognitive Ability: Alert and oriented Motivation to Learn: Interested Family Support: Unable to assess - Family not present Instruction Provided to: Patient Patient Learns Best by: Multiple Methods Factors Affecting Learning: None Physical Limitations Affecting Learning: None LEARNING RESPONSE Diagnosis: ADULT: s/p lap Right hemicolectomy and UHR Enteral Nutrition Access Device: None Patient / Family Response: Verbalizes understanding of CORS/GI Soft Diet: Rationale behind diet restriction, foods allowed/to avoid, small frequent meals, chewing thoroughly, fluid recommendations, how long to continue on diet as well as how to transition off diet and(if applicable) dealing with potential problems (ostomy patients only). Method of Instruction: Individual instruction Written instruction/Handouts Verbal instruction Follow-Up Plan: Recommend - Recommend continued instruction and follow up as directed Instructional Aids Used: Eating Right After GI Surgery thelmaut Supplemental Material Provided to Patient: None Referral (Recommendation): N/A Sonam Palomino RD LD July 24, 2024 10:59 AM Normal [facility] Phosphate SerPl-mCncon 07-24 Phosphate [Mass/Vol] 3.0 mg/dL Normal 2.7-4.8 [facility] Comment on above: Order Comment: Speci men Type: BLOOD SPECIMENOrdering Facility: [facility] Address: [address] [place], [place] [address] [address] Performed By: #### 1 9123-9, 42858-0, 2777-1 ####[facility]ORATORYCLIA [id number] [address] THERAPY NTon 07-24-2024 THERAPY NT HNO ID: [id number] Author: MILTON MAYA OT/L Service: Occupational Therapy Author Type: Occupational Therapist Type: Therapy (PT/OT/Speech/Resp) Filed: 07/24/2024 13:06 Note Text: Occupational Therapy Evaluation Summary SERVICE DATE: 07/24/2024 SERVICE TIME: 1120 to 1228 ROOM: [place] [address] OT 6 Clicks Score: 20 DISCHARGE RECOMMENDATIONS Home Recommended Discharge Disposition Comments: with assist from family PRN. Anticipated Discharge Needs: Physical Assist at Home Physical Assist at Home for: Cleaning, Laundry, Meals, Shopping, Transportation Recommended Discharge Equipment: To Be Determined ASSESSMENT Response to Therapy Interventions: Good Participation in Activities Patient receptive and agreeable to OT eval tasks. Education on abdominal precautions (handout issued by PT) - patient receptive. SBA with sit<>stand and functional mobility at bedside with FWW. Min A with sit<>supine. Mod-max A with LB ADLs - education/demo AE options, patient also reports help from family at DC. O2 dropping to 80s in supine (nsg at bedside) - increased O2 to 4L, satting ~98%. Education on pursed lip breathing. Issued handout/education on ECT, home safety and fall prevention. Patient receptive, denies OT concerns for homegoing.Anticipate once medically stable, will be appropriate to DC home with assist from family. PRECAUTIONS Abdominal, Fall Risk CURRENT HOSPITAL COURSE S/p right hemicolectomy and UHR Relevant Past Medical History: rectal CA, RA, PE HOME LIVING Patient Lives With: Spouse Assistance Available: 24-Hour (spouse and kids live nearby.) Entry To Home: Stairs, With Rail Number Of Stairs Into Home: 3 Number Of Stairs To Bed/Bath: 0 Tub/Shower Type: WIS Laundry: 1st floor - shares with spouse Equipment Owned: Rollator, Grab Bars- Toilet, Hand Held Shower, Elevated Toilet Seat, Director Of Admissions PRIOR FUNCTIONAL LEVEL Within Functional Limits Patient reports previous indepedence with ADLs, shares IADLs with spouse, ambulates without AD, +drives. SUBJECTIVE Patient receptive and agreeable to OT eval tasks. COGNITION Responsiveness: Alert, Awake THERAPY DIAGNOSIS Reduced mobility-other, Decreased activities of daily living (ADL) TREATMENT INTERVENTIONS Evaluation, Self Retirement Management (31927) Timed Code Treatment (minutes): 53 Skilled Treatment Time (minutes): 68 TRAINING AND EDUCATION PROVIDED Activity Adaptation/Compensatory Strategies, Adaptive Equipment/DME, Benefits of In-Hospital Mobility, Discharge Planning, Energy Conservation, Expected Functional Level, Lower Extremity Bathing, Lower Extremity Dressing, Role of Occupational Therapy, Transfer - Bed to Chair, Transfer - Sit to Stand THERAPEUTIC SKILLS USED Activity Dosing, Cuing Verbal, Movement Facilitation, Muscle Activation Facilitation, Physical Assist, Therapeutic Use of Self FUNCTIONAL STATUS Activities of Daily Living Assist Level Additional Information Feeding Independent Grooming Set Up (seated.) Bathing Upper Body Stand By Assistance Bathing Lower Body Moderate Assistance Dressing Upper Body Set Up Dressing Lower Body Moderate Assistance Toileting Stand By Assistance Mobility Assist Level Additional Information Bed Mobility Sit To Supine: Minimal Assistance Sit to Stand Stand By Assistance Stand to Sit Stand By Assistance Bed to Chair Stand By Assistance Bed To Chair Transfer Type: Stepping Bed To Chair Transfer Equipment: Wheeled Walker Toilet/Commode Shower Functional Mobility Stand By Assistance Functional Mobility Device: Wheeled Walker GOALS Patient will demonstrate progress with self-care, cognitive and/or coping needs identified to allow safe discharge to home with available support and/or physical assistance. Rehab Potential: Good PLAN OT Frequency: 2 Times Per Week (+1 PRN visit (1)) Treatment Interventions: Education, Self Care/Home Management, Energy Conservation Training, Joint Mobility, Strengthening, Functional Mobility Training Plan for Next Visit: Bathing Training, Chair/Commode Transfer Training, Dressing Training, Equipment Needed (specify) SIGNATURE: Milton Maya OT/Tim PATIENT NAME: Mervat Grayson DATE: July 24, 2024 TIME: 1:06 PM Normal [facility] THERAPY NT HNO ID: [id number] Author: JENNIFER BRISENO, PT Service: Physical Therapy Author Type: Physical Therapist Type: Therapy (PT/OT/Speech/Resp) Filed: 07/24/2024 10:47 Note Text: Physical Therapy Treatment Summary SERVICE DATE: 07/24/2024 SERVICE TIME: 937 to 949 ROOM: [place] [address] PT 6 Clicks Score: 22 DISCHARGE RECOMMENDATIONS Home ASSESSMENT Response to Therapy Interventions: Good Participation in Activities Patient tolerating activity very well with stable O2 throughout on 2L NC with use of wheeled walker for pain control. Anticipate progression away from supplemental O2 and walker as mobility progresses. Will be safe for discharge home pending progress. PRECAUTIONS Abdominal, Fall Risk CURRENT HOSPITAL COURSE S/p right hemicolectomy and UHR Relevant Past Medical History: rectal CA, RA, PE HOME LIVING Patient Lives With: Spouse Assistance Available: PRN (Spouse, daughter and son available) Entry To Home: Stairs, With Rail Number Of Stairs Into Home: 3 Number Of Stairs To Bed/Bath: 0 Tub/Shower Type: walkin Laundry: 1st floor - shares with spouse Equipment Owned: Rollator PRIOR FUNCTIONAL LEVEL Within Functional Limits Patient reports previous indepedence with ADLs, shares IADLs with spouse, ambulates without AD, drives SUBJECTIVE Patient pleasant and agreeable to PT evaluation THERAPY DIAGNOSIS Reduced mobility-other, Decreased activities of daily living (ADL) TREATMENT INTERVENTIONS Therapeutic Activity (07603) Timed Code Treatment (minutes): 12 Skilled Treatment Time (minutes): 12 TRAINING AND EDUCATION PROVIDED Bed Mobility, Anatomy and Impact on Deficits, Assistive Device Use, Discharge Planning, Expected Functional Level, Exercise Program, Pain Neuroscience, Positioning, Precautions/Restriction s, Role of Physical Therapy THERAPEUTIC SKILLS USED Activity Dosing, Cues for Sequencing/Proper Technique for Activity, Assessment of Tolerance Including Vitals Response to Activity, Cuing Tactile, Cuing Visual, Cuing Verbal FUNCTIONAL STATUS Bed Mobility Supine To Sit: Additional Information not assessed as patient in chair upon PT arrival Scooting: Stand By Assistance Transfers Sit To Stand: Stand By Assistance Stand To Sit: Stand By Assistance Bed to Chair Gait Stand By Assistance Gait Device: Wheeled Walker General Deviations/Observations : Nicky decreased, Flexed trunk posture, Step length decreased Gait Distance (feet): 250 ft Stairs GOALS Patient will demonstrate understanding of importance of mobility during hospital stay and resolve all functional needs identified. Transfer Supine to/from Sit with: Stand By Assistance Transfer Sit to/from Stand with: Stand By Assistance Ambulate with: Stand By Assistance Distance: 50 ft Device: Wheeled Walker Rehab Potential: Good Progress Toward Goals: Progressing as expected PLAN PT Frequency: 2 Times Per Week Treatment Interventions: Education, Strengthening, Functional Mobility Training, Balance Training, Neuromuscular Re-education, Pain Management Plan for Next Visit: Bed Mobility, Fall Prevention, Gait Training, Standing Balance, Standing Tolerance, Walker Training, Sitting Balance SIGNATURE: Jennifer Briseno PT PATIENT NAME: Mervat Grayson DATE: July 24, 2024 TIME: 10:47 AM [facility] THERAPY NT HNO ID: [id number] Author: JENNIFER BRISENO PT Service: Physical Therapy Author Type: Physical Therapist Type: Therapy (PT/OT/Speech/Resp) Filed: 07/24/2024 08:50 Note Text: PHYSICAL THERAPY MISSED VISIT SERVICE DATE: 07/24/2024 SERVICE TIME: 0844 ROOM: [place] [address] Patient not seen due to Patient Not Available. SIGNATURE: Jennifer Briseno PT PATIENT NAME: Mervat Grayson DATE: July 24, 2024 TIME: 8:50 AM [facility] ANES POSTPROC EVALon 024 ANES POSTPROC EVAL HNO ID: [id number] Author: MK LO MD Service: Anesthesiology Author Type: Anesthesiologist Type: Anesthesia Postprocedure Evaluation Filed: 07/23/2024 10:56 Note Text: POST ANESTHESIA EVALUATION NOTE : 1950 Procedure Summary Date: 07/23/24 Room / Location: [place] [address] / OR Anesthesia Start: 002 Anesthesia Stop: 357 Procedure: LAPAROSCOPY DIAGNOSTIC (Abdomen) Diagnosis: Pneumoperitoneum (Pneumoperitoneum [K66.8]) Surgeons: Deborah Norman MD Responsible Provider: Mk Lo MD Anesthesia Type: general ASA Status: 4 - Emergent Anesthesia Type: general Airway Type: ETT Last Vitals Vitals Value Taken Time BP 85/45 07/23/24 1033 Temp 36.6 ?C (97.9 ?F) 07/23/24 1026 HR SpO2 75 07/23/24 0453 Resp 16 07/23/24 0749 SpO2 97 % 07/23/24 1026 Vitals shown include unfiled device data. Post Anesthesia Patient Status Patient Evaluation: PACU. PACU/ICU Patient Condition: stable. Anticipated Disposition: inpatient floor planned admission. Neurological Status: aware and responsive. Pulmonary Status: breathing comfortably on room air Airway Control: returned to baseline unsupported. Cardiovascular Status: stable. Pain Management: clinically adequate Postoperative Hydration: acceptable. Intraoperative Events: no significant anesthesia events Recommendation: continue current plan of care. Anesthesia Observations No Documentation SIGNATURE: Mk Lo MD PATIENT NAME: Mervat Grayson DATE: July 23, 2024 TIME: 10:56 AM CSN: [id number] [facility] ANES PRE-OPon 07-23-2024 ANES PRE-OP HNO ID: [id number] Author: MK LO MD Service: Anesthesiology Author Type: Anesthesiologist Type: Anesthesia Preprocedure Evaluation Filed: 07/23/2024 01:01 Note Text: ANESTHESIOLOGY DAY OF SURGERY NOTE : 1950 Procedure Information Date/Time: 07/22/242229 Procedures: LAPAROSCOPY DIAGNOSTIC (Abdomen) EXPLORATORY LAPAROTOMY Location: [facility]06 / [facility] Surgeons: Deborah Norman MD Estimated body mass index is 32.73 kg/m? as calculated from the following: Height as of 03/12/24: 185.4 cm (6' 0.99 ). Weight as of this encounter: 112.5 kg (248 lb). Most recent hematocrit and potassium results: Hematocrit 39.9 07/22/2024 Potassium 4.1 02/11/2024 Relevant Problems Other (+) RA (rheumatoid arthritis) (HCC) Patient with hx of rectal Ca had a colonoscopy 2 days ago and presents with colon perforation. VSS. Last dose Xarelto this morning. Prednisone 5mg daily for RA. Last PO 8 hours ago. I - PHYSICAL EVALUATION AIRWAY Patient intubated: No. Tracheostomy tube not present Mallampati: II. TM distance: >3 FB. Neck ROM: full ROM without neurological symptoms. Mouth opening: adequate. Short neck: no. Thick neck: no DENTAL Dentures, upper: complete. Dentures, lower: partial. II - ANESTHESIA PLAN ASA Score: 4; emergent. Anesthetic Plan: general Airway type: ETT The patient is not a current smoker. Beta Taina Monitoring Plan Monitoring plan: standard ASA. Post Procedure Analgesic Plan Postoperative analgesic plan: multimodal analgesia and per surgical service. Informed Consent Anesthetic risks, benefits, alternatives, personnel and consent discussed: yes. Patient / Responsible [employer] Party agrees to proceed: yes Patient / Surrogate agrees to blood products: Yes Significant changes in the patient condition since the History and Physical, not otherwise documented in primary service progress note: no. Potential Anesthesia issues that may suggest increased risk of complications or contraindication to planned procedure: none. Vitals Value Taken Time BP 121/84 07/23/24 0000 Pulse 89 07/22/242323 Resp 18 07/22/242323 Temp 37.7 ?C (99.8 ?F) 07/22/242323 SpO2 93 % 07/23/24 0010 Vitals shown include unfiled device data. Facility-Administered Medications as of 07/22/2024 Medication Dose Route Frequency anti-inhibitor coagulant complex 5,000 Units in sterile water 100 mL (FEIBA) 5,000 Units INTRAVENOUS ONCE NaCl 0.9% iv flush bag 50 mL INTRAVENOUS ONCE fentaNYL 50 mcg/mL 50 mcg injection (SUBLIMAZE) 50 mcg INTRAVENOUS PRN lactated ringers iv infusion 75 mL/hr INTRAVENOUS CONTINUOUS piperacillin-tazobactam iv piggyback 3.375 g in dextrose (iso-osmotic) 50 mL (ZOSYN) 3.375 g INTRAVENOUS ONCE NaCl 0.9% iv flush bag 20 mL INTRAVENOUS PRN Outpatient Medications as of 07/22/2024 Medication Sig XARELTO 20 mg tablet TAKE ONE TABLET BY MOUTH DAILY WITH DINNER calcium carbonate (CALCIUM 600 ORAL) Take 1 tablet by mouth once daily. glucosamine/chondr perez A sod (GLUCOSAMINE-CHONDROITI N) 1,500-1,200 mg/30 mL liqd Take by mouth once daily. predniSONE (DELTASONE) 5 mg tablet Take 5 mg by mouth once daily. valsartan (DIOVAN) 80 mg tablet Take 80 mg by mouth once daily. carvedilol (COREG) 6.25 mg tablet Take 6.25 mg by mouth twice daily with meals. tamsulosin ER (FLOMAX) 0.4 mg cap Take 0.4 mg by mouth twice daily. Ascorbic Acid 100 mg tablet Take 100 mg by mouth twice daily. I have interviewed and examined the patient. I have reviewed the medical record and/or the pre-anesthesia evaluation, pertinent labs, and test results. This contains updated information obtained within 48 hours of Surgery/Procedure. SIGNATURE: Mk Lo MD PATIENT NAME: Mervat Grayson DATE: July 23, 2024 TIME: 12:10 AM CSN: [id number] [facility] BRIEF OP NOTon 07-23-2024 BRIEF OP NOT HNO ID: [id number] Author: KEKE RODRIGUEZ MD Service: Colorectal Author Type: Resident Type: Brief Op Note Filed: 07/23/2024 04:00 Note Text: BRIEF OPERATIVE NOTE Patient Name: Mervat Grayson LOG ID: [id number] Surgery/Procedure Date: 07/22/2024 - 07/23/2024 Surgeon(s)/Proceduralis t(s) and Emergency Detail Driver(s): Surgeons and Role: * Deborah Norman MD - Primary * Keke Rodriguez MD - Resident - Assisting Procedure(s): LAPAROSCOPY DIAGNOSTIC Right hemicolectomy Ileocolonic anastomosis Umbilical hernia primary repair Incision/Procedure Start Time: 1:10 AM Incision Close/Procedure End Time: 3:43 AM Anesthesia: General Findings: Cecal perforation Estimated Blood Loss: 200 mls Specimens: ID Type Source Tests Collected by Time Destination 1 : Blood Blood CONFIRM BLOOD TYPE Deborah Norman MD 07/23/2024 12:48 AM A : umbilical hernia sac Tissue Hernia Sac SURGICAL PATHOLOGY Deborah Norman MD 07/23/2024 1:16 AM B : right colon Tissue Colon, Resection SURGICAL PATHOLOGY Deborah Norman MD 07/23/2024 2:57 AM Implants * No implants in log * Fluids:2300cc Urine Output: 200cc Drains: None Wound Classification: Class 2, operative wound clean-contaminated, gastrointestinal/biliar y tract entered without significant spillage Pre-Op/Pre-Procedure Diagnosis: Pre-Op Diagnosis Codes: * Pneumoperitoneum [K66.8] Post-Op/Post-Procedure Diagnosis: same Post-Op Plan: - RNF - NPO - MANHOLE STRIPPER - IV abx for 5 days - no lovenox 10/3 AM SIGNATURE: Keke Rodriguez MD PATIENT NAME: Mervat Grayson DATE: 07/23/24 TIME: 3:48 AM PAGER # [phone] Normal [facility] Basic metabolic 2000 panelon 07-23-2024 Anion gap [Moles/Vol] 10 mmol/L Normal 8-15 [facility] Comment on above: Order Comment: Speci men Type: BLOOD SPECIMEN Ordering Facility: [facility] Address: [address] [place] [address] Performed By: #### 3 4528-0, 84884-2 #### [facility] CLIA [id number] [address] [place] [address] [place] Calcium [Mass/Vol] 8.3 mg/dL Low 8.5-10.2 [facility] Comment on above: Order Comment: Speci men Type: BLOOD SPECIMEN Ordering Facility: [facility] Address: [address] [place] [address] Performed By: #### 3 4528-0, 76401-9 #### [facility] CLIA [id number] [address] [place] [address] [place] Chloride [Moles/Vol] 104 mmol/L Normal 98-107 [facility] Comment on above: Order Comment: Speci men Type: BLOOD SPECIMEN Ordering Facility: [facility] Address: [address] [place] [address] Performed By: #### 3 4528-0, 81338-9 #### [facility] CLIA [id number] [address] [place] [address] [place] CO2 [Moles/Vol] 24 mmol/L Normal 22-30 [facility] Comment on above: Order Comment: Speci men Type: BLOOD SPECIMEN Ordering Facility: [facility] Address: [address] [place] [address] Performed By: #### 3 4528-0, 01150-6 #### [facility] CLIA [id number] [place] [address] [place] Creatinine [Mass/Vol] 1.08 mg/dL Normal 0.73-1.22 [facility] Comment on above: Order Comment: Nazario brooks Type: BLOOD SPECIMEN Ordering Facility: [facility] Address: [address] [place] [address] Performed By: #### 3 4528-0, 69265-1 #### [facility] CLIA [id number] [address] [place] [address] [place] Creatinine and Glomerular filtration rate.predicted panel (S/P/Bld) 73 mL/min/1.73m??? Normal >=60 [facility] Comment on above: Order Comment: Nazario brooks Type: BLOOD SPECIMEN Ordering Facility: [facility] Address: [address] [place] [address] Result Comment: Rebekah mated Glomerular Filtration Rate [...] accurately reflect actual GFR. Performed By: #### 3 4528-0, 74586-3 #### [facility] CLIA [id number] [address] [place] [address] [place] Glucose [Mass/Vol] 173 mg/dL High 74-99 [facility] Comment on above: Order Comment: Nazario brooks Type: BLOOD SPECIMEN Ordering Facility: [facility] Address: [address] [place] [address] Result Comment: The [place] [employer] (ADA) provides guidance for cutoff values for fasting glucose and random glucose. The ADA defines fasting as no caloric intake for at least 8 hours. Fasting plasma glucose results between 100 to 125 mg/dL indicate increased risk for diabetes (prediabetes). Fasting plasma glucose results greater than or equal to 126 mg/dL meet the criteria for diagnosis of diabetes. In the absence of unequivocal hyperglycemia, results should be confirmed by repeat testing. In a patient with classic symptoms of hyperglycemia or hyperglycemic crisis, random plasma glucose results greater than or equal to 200 mg/dL meet the criteria for diagnosis of diabetes. Reference: Standards of Medical Care in Diabetes 2016, [place] [employer]. Diabetes Care. 2016.39(Suppl 1). Performed By: #### 3 4528-0, 32822-5 #### [facility] CLIA [id number] [address] [place] [address] [place] Potassium [Moles/Vol] 4.0 mmol/L Normal 3.7-5.1 [facility] Comment on above: Order Comment: Speci men Type: BLOOD SPECIMEN Ordering Facility: [facility] Address: [address] [place] [address] Performed By: #### 3 4528-0, 20950-2 #### [facility] CLIA [id number] [address] [place] [address] [place] Sodium [Moles/Vol] 138 mmol/L Normal 136-144 [facility] Comment on above: Order Comment: Speci men Type: BLOOD SPECIMEN Ordering Facility: [facility] Address: [address] [place] [address] Performed By: #### 3 4528-0, 41547-7 #### [facility] CLIA [id number] [address] [place] [address] [place] Urea nitrogen [Mass/Vol] 11 mg/dL Normal 9-24 [facility] Comment on above: Order Comment: Speci men Type: BLOOD SPECIMEN Ordering Facility: [facility] Address: [address] [place] [address] Performed By: #### 3 4528-0, 20742-3 #### [facility] CLIA [id number] [address] [place] [address] [place] Anion gap [Moles/Vol] 13 mmol/L Normal 8-15 [facility] Comment on above: Order Comment: Speci men Type: BLOOD SPECIMEN Ordering Facility: [facility] Address: [address] [place] [address] Performed By: #### 3 4528-0, 73534-5 #### [facility] CLIA [id number] [address] [place] [address] [place] Calcium [Mass/Vol] 8.5 mg/dL Normal 8.5-10.2 [facility] Comment on above: Order Comment: Speci men Type: BLOOD SPECIMEN Ordering Facility: [facility] Address: [facility] [place] [address] Performed By: #### 3 4528-0, 95652-3 #### [facility] CLIA [id number] [address] [place] [address] [place] Chloride [Moles/Vol] 104 mmol/L Normal 98-107 [facility] Comment on above: Order Comment: Speci men Type: BLOOD SPECIMEN Ordering Facility: [facility] Address: [address] [place] [address] Performed By: #### 3 4528-0, 68878-0 #### [facility] CLIA [id number] [address] [place] [address] [place] CO2 [Moles/Vol] 22 mmol/L Normal 22-30 [facility] Comment on above: Order Comment: Speci men Type: BLOOD SPECIMEN Ordering Facility: [facility] Address: [address] [place] [address] Performed By: #### 3 4528-0, 22349-2 #### [facility] CLIA [id number] [address] [place] [address] [place] Creatinine [Mass/Vol] 1.06 mg/dL Normal 0.73-1.22 [facility] Comment on above: Order Comment: Speci men Type: BLOOD SPECIMEN Ordering Facility: [facility] Address: [address] [place] [address] Performed By: #### 3 4528-0, 03362-0 #### [facility] CLIA [id number] [address] [place] [address] [place] Creatinine and Glomerular filtration rate.predicted panel (S/P/Bld) 75 mL/min/1.73m??? Normal >=60 [facility] Comment on above: Order Comment: Speci men Type: BLOOD SPECIMEN Ordering Facility: [facility] Address: [address] [place] [address] Result Comment: Rebekah mated Glomerular Filtration Rate [...] accurately reflect actual GFR. Performed By: #### 3 4528-0, 16959-4 #### [facility] CLIA [id number] [address] [place] [address] [place] Glucose [Mass/Vol] 155 mg/dL High 74-99 [facility] Comment on above: Order Comment: Nazario brooks Type: BLOOD SPECIMEN Ordering Facility: [facility] Address: [address] [place] [address] Result Comment: The [place] Diabetes [employer] (ADA) provides guidance for cutoff values for fasting glucose and random glucose. The ADA defines fasting as no caloric intake for at least 8 hours. Fasting plasma glucose results between 100 to 125 mg/dL indicate increased risk for diabetes (prediabetes). Fasting plasma glucose results greater than or equal to 126 mg/dL meet the criteria for diagnosis of diabetes. In the absence of unequivocal hyperglycemia, results should be confirmed by repeat testing. In a patient with classic symptoms of hyperglycemia or hyperglycemic crisis, random plasma glucose results greater than or equal to 200 mg/dL meet the criteria for diagnosis of diabetes. Reference: Standards of Medical Care in Diabetes 2016, [place] [employer]. Diabetes Care. 2016.39(Suppl 1). Performed By: #### 3 4528-0, 93456-2 #### [facility] CLIA [id number] [place], [place] [id number] [place] Potassium [Moles/Vol] 4.0 mmol/L Normal 3.7-5.1 [facility] Comment on above: Order Comment: Nazario brooks Type: BLOOD SPECIMEN Ordering Facility: [facility] Address: [address] [place] [address] Performed By: #### 3 4528-0, 10113-9 #### [facility] CLIA [id number] [address] [place] [id number] [place] Sodium [Moles/Vol] 139 mmol/L Normal 136-144 [facility] Comment on above: Order Comment: Speci men Type: BLOOD SPECIMEN Ordering Facility: [facility] Address: [address] [place] [address] Performed By: #### 3 4528-0, 61830-2 #### [facility] CLIA [id number] [address] [place] [address] [place] Urea nitrogen [Mass/Vol] 11 mg/dL Normal 9-24 [facility] Comment on above: Order Comment: Speci men Type: BLOOD SPECIMEN Ordering Facility: [facility] Address: [address] [place] [address] Performed By: #### 3 4528-0, 13268-7 #### [facility] CLIA [id number] [address] [place] [address] [place] CBC W Auto Differential pane l (Bld)on 07-23-2024 Basophils (Bld) [#/Vol] 0.03 10*3/uL Normal <0.11 [facility] Comment on above: Order Comment: Speci men Type: BLOOD SPECIMEN Ordering Facility: [facility] Address: [address] [place] [address] Performed By: #### 2 4321-2 #### [facility] CLIA [id number] [address] [place] [address] [place] Basophils/100 WBC (Bld) 0.2 % Normal [facility] Comment on above: Order Comment: Speci men Type: BLOOD SPECIMEN Ordering Facility: [facility] Address: [address] [place] [address] Performed By: #### 2 4321-2 #### [facility] CLIA [id number] [address] [place] [address] [place] Differential cell count method Nom (Bld) Auto Normal [facility] Comment on above: Order Comment: Speci men Type: BLOOD SPECIMEN Ordering Facility: [facility] Address: [address] [place] [address] Performed By: #### 2 4321-2 #### [facility] CLIA [id number] [address] [place] [address] [place] Eosinophils (Bld) [#/Vol] 10*3/uL Normal <0.46 [facility] Comment on above: Order Comment: Speci men Type: BLOOD SPECIMEN Ordering Facility: [facility] Address: [address] [place] [address] Performed By: #### 2 4321-2 #### [facility] CLIA [id number] [address] [place] [address] [place] Eosinophils/100 WBC (Bld) 0.1 % Normal [facility] Comment on above: Order Comment: Speci men Type: BLOOD SPECIMEN Ordering Facility: [facility] Address: [address] [place] [address] Performed By: #### 2 4321-2 #### [facility] CLIA [id number] [address] [place] [address] [place] Erythrocyte distribution width (RBC) [Ratio] 15.9 % High 11.5-15.0 [facility] Comment on above: Order Comment: Speci men Type: BLOOD SPECIMEN Ordering Facility: [facility] Address: [address] [place] [address] Performed By: #### 2 4321-2 #### [facility] CLIA [id number] [address] [place] [address] [place] Hematocrit (Bld) [Volume fraction] 34.8 % Low 39.0-51.0 [facility] Comment on above: Order Comment: Speci men Type: BLOOD SPECIMEN Ordering Facility: [facility] Address: [address] [place] [address] Performed By: #### 2 4321-2 #### [facility] CLIA [id number] [address] [place] [address] [place] Hemoglobin (Bld) [Mass/Vol] 11.6 g/dL Low 13.0-17.0 [facility] Comment on above: Order Comment: Speci men Type: BLOOD SPECIMEN Ordering Facility: [facility] Address: [address] [place] [address] Performed By: #### 2 4321-2 #### [facility] CLIA [id number] [address] [place] [address] [place] Immature granulocytes (Bld) [#/Vol] 0.09 10*3/uL Normal <0.10 [facility] Comment on above: Order Comment: Speci men Type: BLOOD SPECIMEN Ordering Facility: [facility] Address: [address] [place] [address] Performed By: #### 2 4321-2 #### [facility] CLIA [id number] [address] [place] [address] [place] Immature granulocytes/100 WBC (Bld) 0.6 % Normal [facility] Comment on above: Order Comment: Speci men Type: BLOOD SPECIMEN Ordering Facility: [facility] Address: [address] [place] [address] Performed By: #### 2 4321-2 #### [facility] CLIA [id number] [address] [place] [address] [place] Lymphocytes (Bld) [#/Vol] 0.38 10*3/uL Low 1.00-4.00 [facility] Comment on above: Order Comment: Speci men Type: BLOOD SPECIMEN Ordering Facility: [facility] Address: [address] [place] [address] Performed By: #### 2 4321-2 #### [facility] CLIA [id number] [address] [place] [address] [place] Lymphocytes/100 WBC (Bld) 2.7 % Normal [facility] Comment on above: Order Comment: Speci men Type: BLOOD SPECIMEN Ordering Facility: [facility] Address: [address] [place] [address] Performed By: #### 2 4321-2 #### [facility] CLIA [id number] [address] [place] [address] [place] MCH (RBC) [Entitic mass] 31.4 pg Normal 26.0-34.0 [facility] Comment on above: Order Comment: Speci men Type: BLOOD SPECIMEN Ordering Facility: [facility] Address: [address] [place] [address] Performed By: #### 2 4321-2 #### [facility] CLIA [id number] [address] [place] [address] [place] MCHC (RBC) [Mass/Vol] 33.3 g/dL Normal 30.5-36.0 [facility] Comment on above: Order Comment: Speci men Type: BLOOD SPECIMEN Ordering Facility: [facility] Address: [address] [place] [address] Performed By: #### 2 4321-2 #### [facility] CLIA [id number] [address] [place] [address] [place] MCV (RBC) [Entitic vol] 94.1 fL Normal 80.0-100.0 [facility] Comment on above: Order Comment: Speci men Type: BLOOD SPECIMEN Ordering Facility: [facility] Address: [address] [place] [address] Performed By: #### 2 4321-2 #### [facility] CLIA [id number] [address] [place] [address] [place] Monocytes (Bld) [#/Vol] 0.47 10*3/uL Normal <0.87 [facility] Comment on above: Order Comment: Speci men Type: BLOOD SPECIMEN Ordering Facility: [facility] Address: [address] [place] [address] Performed By: #### 2 4321-2 #### [facility] CLIA [id number] [address] [place] [address] [place] Monocytes/100 WBC (Bld) 3.3 % Normal [facility] Comment on above: Order Comment: Speci men Type: BLOOD SPECIMEN Ordering Facility: [facility] Address: [address] [place] [address] Performed By: #### 2 4321-2 #### [facility] CLIA [id number] [address] [place] [address] [place] Neutrophils (Bld) [#/Vol] 13.24 10*3/uL High 1.45-7.50 [facility] Comment on above: Order Comment: Speci men Type: BLOOD SPECIMEN Ordering Facility: [facility] Address: [address] [place] [address] Performed By: #### 2 4321-2 #### [facility] CLIA [id number] [address] [place] [address] [place] Neutrophils/100 WBC (Bld) 93.1 % Normal [facility] Comment on above: Order Comment: Speci men Type: BLOOD SPECIMEN Ordering Facility: [facility] Address: [address] [place] [address] Performed By: #### 2 4321-2 #### [facility] CLIA [id number] [address] [place] [address] [place] Nucleated RBC (Bld) [#/Vol] 10*3/uL Normal <0.01 [facility] Comment on above: Order Comment: Speci men Type: BLOOD SPECIMEN Ordering Facility: [facility] Address: [address] [place] [address] Performed By: #### 2 4321-2 #### [facility] CLIA [id number] [address] [place] [address] [place] Nucleated RBC/100 WBC (Bld) [Ratio] 0.0 /100 WBC Normal [facility] Comment on above: Order Comment: Speci men Type: BLOOD SPECIMEN Ordering Facility: [facility] Address: [address] [place] [address] Performed By: #### 2 4321-2 #### [facility] CLIA [id number] [address] [place] [address] [place] Platelet mean volume (Bld) [Entitic vol] 10.5 fL Normal 9.0-12.7 [facility] Comment on above: Order Comment: Speci men Type: BLOOD SPECIMEN Ordering Facility: [facility] Address: [address] [place] [address] Performed By: #### 2 4321-2 #### [facility] CLIA [id number] [address] [place] [address] [place] Platelets (Bld) [#/Vol] 184 10*3/uL Normal 150-400 [facility] Comment on above: Order Comment: Speci men Type: BLOOD SPECIMEN Ordering Facility: [facility] Address: [address] [place] [address] Performed By: #### 2 4321-2 #### [facility] CLIA [id number] [address] [place] [id number] [place] RBC (Bld) [#/Vol] 3.70 10*6/uL Low 4.20-6.00 [facility] Comment on above: Order Comment: Speci men Type: BLOOD SPECIMEN Ordering Facility: [facility] Address: [address] [place] [address] Performed By: #### 2 4321-2 #### [facility] CLIA [id number] [place] [address] [place] WBC (Bld) [#/Vol] 14.22 10*3/uL High 3.70-11.00 [facility] Comment on above: Order Comment: Speci men Type: BLOOD SPECIMEN Ordering Facility: [facility] Address: [address] [place] [address] Performed By: #### 2 4321-2 #### [facility] CLIA [id number] [address] [place] [address] [place] CBC panel Auto (Bld)on 07-23 Erythrocyte distribution width (RBC) [Ratio] 15.9 % High 11.5-15.0 [facility] Comment on above: Order Comment: Speci men Type: BLOOD SPECIMENOrdering Facility: [facility] Address: [address] [place] [address] Performed By: #### 5 8410-2 ####[facility] [id number] [address] [place] Hematocrit (Bld) [Volume fraction] 24.7 % Low 39.0-51.0 [facility] Comment on above: Order Comment: Speci men Type: BLOOD SPECIMENOrdering Facility: [facility] Address: [address] [place] [address] Performed By: #### 5 8410-2 ####[facility] [id number] [address] [place] Hemoglobin (Bld) [Mass/Vol] 8.4 g/dL Low 13.0-17.0 [facility] Comment on above: Order Comment: Speci men Type: BLOOD SPECIMENOrdering Facility: [facility] Address: [address] [place] [address] Performed By: #### 5 8410-2 ####[facility] [id number] [address] STATES [facility] MCH (RBC) [Entitic mass] 32.2 pg Normal 26.0-34.0 [facility] Comment on above: Order Comment: Speci men Type: BLOOD SPECIMENOrdering Facility: [facility] Address: [address] [place] [address] Performed By: #### 5 8410-2 ####[facility] [id number] [address] [place] MCHC (RBC) [Mass/Vol] 34.0 g/dL Normal 30.5-36.0 [facility] Comment on above: Order Comment: Speci men Type: BLOOD SPECIMENOrdering Facility: [facility] Address: [address] [place] [address] Performed By: #### 5 8410-2 ####[facility] [id number] [address] [place] MCV (RBC) [Entitic vol] 94.6 fL Normal 80.0-100.0 [facility] Comment on above: Order Comment: Speci men Type: BLOOD SPECIMENOrdering Facility: [facility] Address: [address] [place] [address] Performed By: #### 5 8410-2 ####[facility] [id number] [address] [place] Nucleated RBC (Bld) [#/Vol] 10*3/uL Normal <0.01 [facility] Comment on above: Order Comment: Speci men Type: BLOOD SPECIMENOrdering Facility: [facility] Address: [address] [place] [address] Performed By: #### 5 8410-2 ####[facility]ORY[facility] [id number] [place] [id number] [place] Platelet mean volume (Bld) [Entitic vol] 10.4 fL Normal 9.0-12.7 [facility] Comment on above: Order Comment: Speci men Type: BLOOD SPECIMENOrdering Facility: [facility] Address: [address] [place] [address] Performed By: #### 5 8410-2 ####[facility] [id number] [place] [id number] [place] Platelets (Bld) [#/Vol] 154 10*3/uL Normal 150-400 [facility] Comment on above: Order Comment: Speci men Type: BLOOD SPECIMENOrdering Facility: [facility] Address: [address] [place] [address] Performed By: #### 5 8410-2 ####[facility] [id number] [place] [id number] [place] RBC (Bld) [#/Vol] 2.61 10*6/uL Low 4.20-6.00 [facility] Comment on above: Order Comment: Speci men Type: BLOOD SPECIMENOrdering Facility: [facility] Address: [address] [place] [address] Performed By: #### 5 8410-2 ####[facility] [id number] [place] [id number] [place] WBC (Bld) [#/Vol] 16.47 10*3/uL High 3.70-11.00 [facility] Comment on above: Order Comment: Speci men Type: BLOOD SPECIMENOrdering Facility: [facility] Address: [address] [place] [address] Performed By: #### 5 8410-2 ####[facility] [id number] [place] [id number] [place] Erythrocyte distribution width (RBC) [Ratio] 16.0 % High 11.5-15.0 [facility] Comment on above: Order Comment: Speci men Type: BLOOD SPECIMEN Ordering Facility: [facility] Address: [address] [place] [address] Performed By: #### 3 4528-0, 65638-7 #### [facility] CLIA [id number] [address] [place] [address] [place] Hematocrit (Bld) [Volume fraction] 26.7 % Low 39.0-51.0 [facility] Comment on above: Order Comment: Speci men Type: BLOOD SPECIMEN Ordering Facility: [facility] Address: [address] [place] [address] Performed By: #### 3 4528-0, 66948-4 #### [facility] CLIA [id number] [address] [place] [address] [place] Hemoglobin (Bld) [Mass/Vol] 8.9 g/dL Low 13.0-17.0 [facility] Comment on above: Order Comment: Speci men Type: BLOOD SPECIMEN Ordering Facility: [facility] Address: [address] [place] [address] Performed By: #### 3 4528-0, 48170-8 #### [facility] CLIA [id number] [address] [place] [address] [place] MCH (RBC) [Entitic mass] 31.7 pg Normal 26.0-34.0 [facility] Comment on above: Order Comment: Speci men Type: BLOOD SPECIMEN Ordering Facility: [facility] Address: [address] [place] [address] Performed By: #### 3 4528-0, 04943-4 #### [facility] CLIA [id number] [address] [place] [address] [place] MCHC (RBC) [Mass/Vol] 33.3 g/dL Normal 30.5-36.0 [facility] Comment on above: Order Comment: Speci men Type: BLOOD SPECIMEN Ordering Facility: [facility] Address: [address] [place] [address] Performed By: #### 3 4528-0, 43683-3 #### [facility] CLIA [id number] [address] [place] [address] [place] MCV (RBC) [Entitic vol] 95.0 fL Normal 80.0-100.0 [facility] Comment on above: Order Comment: Speci men Type: BLOOD SPECIMEN Ordering Facility: [facility] Address: [address] [place] [address] Performed By: #### 3 4528-0, 07748-9 #### [facility] CLIA [id number] [address] [place] [address] [place] Nucleated RBC (Bld) [#/Vol] 10*3/uL Normal <0.01 [facility] Comment on above: Order Comment: Speci men Type: BLOOD SPECIMEN Ordering Facility: [facility] Address: [address] [place] [address] Performed By: #### 3 4528-0, 21982-6 #### [facility] CLIA [id number] [address] [place] [address] [place] Platelet mean volume (Bld) [Entitic vol] 11.0 fL Normal 9.0-12.7 [facility] Comment on above: Order Comment: Speci men Type: BLOOD SPECIMEN Ordering Facility: [facility] Address: [address] [place] [address] Performed By: #### 3 4528-0, 88549-8 #### [facility] CLIA [id number] [address] [place] [address] [place] Platelets (Bld) [#/Vol] 165 10*3/uL Normal 150-400 [facility] Comment on above: Order Comment: Speci men Type: BLOOD SPECIMEN Ordering Facility: [facility] Address: [address] [place] [address] Performed By: #### 3 4528-0, 95486-9 #### [facility] CLIA [id number] [address] [place] [address] [place] RBC (Bld) [#/Vol] 2.81 10*6/uL Low 4.20-6.00 [facility] Comment on above: Order Comment: Speci men Type: BLOOD SPECIMEN Ordering Facility: [facility] Address: [address] [place] [address] Performed By: #### 3 4528-0, 35259-3 #### [facility] CLIA [id number] [address] [place] [address] [place] WBC (Bld) [#/Vol] 16.33 10*3/uL High 3.70-11.00 [facility] Comment on above: Order Comment: Speci men Type: BLOOD SPECIMEN Ordering Facility: [facility] Address: [address] [place] [address] Performed By: #### 3 4528-0, 23146-2 #### [facility] CLIA [id number] [address] [place] [address] [place] Erythrocyte distribution width (RBC) [Ratio] 15.9 % High 11.5-15.0 [facility] Comment on above: Order Comment: Speci men Type: BLOOD SPECIMEN Ordering Facility: [facility] Address: [address] [place] [address] Performed By: #### 2 4321-2 #### [facility] CLIA [id number] [address] [place] [address] [place] Hematocrit (Bld) [Volume fraction] 28.4 % Low 39.0-51.0 [facility] Comment on above: Order Comment: Speci men Type: BLOOD SPECIMEN Ordering Facility: [facility] Address: [address] [place] [address] Performed By: #### 2 4321-2 #### [facility] CLIA [id number] [address] [place] [address] [place] Hemoglobin (Bld) [Mass/Vol] 9.4 g/dL Low 13.0-17.0 [facility] Comment on above: Order Comment: Speci men Type: BLOOD SPECIMEN Ordering Facility: [facility] Address: [address] [place] [address] Performed By: #### 2 4321-2 #### [facility] CLIA [id number] [address] [place] [address] [place] MCH (RBC) [Entitic mass] 31.4 pg Normal 26.0-34.0 [facility] Comment on above: Order Comment: Speci men Type: BLOOD SPECIMEN Ordering Facility: [facility] Address: [address] [place] [address] Performed By: #### 2 4321-2 #### [facility] CLIA [id number] [address] [place] [address] [place] [facility] MCHC (RBC) [Mass/Vol] 33.1 g/dL Normal 30.5-36.0 [facility] Comment on above: Order Comment: Speci men Type: BLOOD SPECIMEN Ordering Facility: [facility] Address: [address] [place] [address] Performed By: #### 2 4321-2 #### [facility] CLIA [id number] [address] [place] [address] [place] MCV (RBC) [Entitic vol] 95.0 fL Normal 80.0-100.0 [facility] Comment on above: Order Comment: Speci men Type: BLOOD SPECIMEN Ordering Facility: [facility] Address: [address] [place] [address] Performed By: #### 2 4321-2 #### [facility] CLIA [id number] [address] [place] [address] [place] Nucleated RBC (Bld) [#/Vol] 10*3/uL Normal <0.01 [facility] Comment on above: Order Comment: Speci men Type: BLOOD SPECIMEN Ordering Facility: [facility] Address: [address] [place] [address] Performed By: #### 2 4321-2 #### [facility] CLIA [id number] [address] [place] [address] [place] Platelet mean volume (Bld) [Entitic vol] 10.5 fL Normal 9.0-12.7 [facility] Comment on above: Order Comment: Speci men Type: BLOOD SPECIMEN Ordering Facility: [facility] Address: [address] [place] [address] Performed By: #### 2 4321-2 #### [facility] CLIA [id number] [address] [place] [address] [place] Platelets (Bld) [#/Vol] 165 10*3/uL Normal 150-400 [facility] Comment on above: Order Comment: Speci men Type: BLOOD SPECIMEN Ordering Facility: [facility] Address: [address] [place] [address] Performed By: #### 2 4321-2 #### [facility] CLIA [id number] [address] [place] [address] [place] RBC (Bld) [#/Vol] 2.99 10*6/uL Low 4.20-6.00 [facility] Comment on above: Order Comment: Speci men Type: BLOOD SPECIMEN Ordering Facility: [facility] Address: [address] [place] [address] Performed By: #### 2 4321-2 #### [facility] CLIA [id number] [address] [place] [address] [place] WBC (Bld) [#/Vol] 16.57 10*3/uL High 3.70-11.00 [facility] Comment on above: Order Comment: Speci men Type: BLOOD SPECIMEN Ordering Facility: [facility] Address: [address] [place] [address] Performed By: #### 2 4321-2 #### [facility] CLIA [id number] [address] [place] [address] [place] Erythrocyte distribution width (RBC) [Ratio] 15.9 % High 11.5-15.0 [facility] Comment on above: Order Comment: Speci men Type: BLOOD SPECIMEN Ordering Facility: [facility] Address: [address] [place] [address] Performed By: #### 2 4321-2 #### [facility] CLIA [id number] [address] [place] [address] [place] Hematocrit (Bld) [Volume fraction] 31.1 % Low 39.0-51.0 [facility] Comment on above: Order Comment: Speci men Type: BLOOD SPECIMEN Ordering Facility: [facility] Address: [address] [place] [address] Performed By: #### 2 4321-2 #### [facility] CLIA [id number] [address] [place] [address] [place] Hemoglobin (Bld) [Mass/Vol] 10.5 g/dL Low 13.0-17.0 [facility] Comment on above: Order Comment: Speci men Type: BLOOD SPECIMEN Ordering Facility: [facility] Address: [address] [place] [address] Performed By: #### 2 4321-2 #### [facility] CLIA [id number] [address] [place] [address] [place] MCH (RBC) [Entitic mass] 31.9 pg Normal 26.0-34.0 [facility] Comment on above: Order Comment: Speci men Type: BLOOD SPECIMEN Ordering Facility: [facility] Address: [address] [place] [address] Performed By: #### 2 4321-2 #### [facility] CLIA [id number] [address] [place] [address] [place] MCHC (RBC) [Mass/Vol] 33.8 g/dL Normal 30.5-36.0 [facility] Comment on above: Order Comment: Speci men Type: BLOOD SPECIMEN Ordering Facility: [facility] Address: [address] [place] [address] Performed By: #### 2 4321-2 #### [facility] CLIA [id number] [address] [place] [address] [place] MCV (RBC) [Entitic vol] 94.5 fL Normal 80.0-100.0 [facility] Comment on above: Order Comment: Speci men Type: BLOOD SPECIMEN Ordering Facility: [facility] Address: [address] [place] [address] Performed By: #### 2 4321-2 #### [facility] CLIA [id number] [address] [place] [address] [place] Nucleated RBC (Bld) [#/Vol] 10*3/uL Normal <0.01 [facility] Comment on above: Order Comment: Speci men Type: BLOOD SPECIMEN Ordering Facility: [facility] Address: [address] [place] [address] Performed By: #### 2 4321-2 #### [facility] CLIA [id number] [address] [place] [address] [place] Platelet mean volume (Bld) [Entitic vol] 10.7 fL Normal 9.0-12.7 [facility] Comment on above: Order Comment: Speci men Type: BLOOD SPECIMEN Ordering Facility: [facility] Address: [address] [place] [address] Performed By: #### 2 4321-2 #### [facility] CLIA [id number] [address] [place] [address] [place] Platelets (Bld) [#/Vol] 184 10*3/uL Normal 150-400 [facility] Comment on above: Order Comment: Speci men Type: BLOOD SPECIMEN Ordering Facility: [facility] Address: [address] [place] [address] Performed By: #### 2 4321-2 #### [facility] CLIA [id number] [address] [place] [address] [place] RBC (Bld) [#/Vol] 3.29 10*6/uL Low 4.20-6.00 [facility] Comment on above: Order Comment: Speci men Type: BLOOD SPECIMEN Ordering Facility: [facility] Address: [address] [place] [address] Performed By: #### 2 4321-2 #### [facility] CLIA [id number] [address] [place] [address] [place] WBC (Bld) [#/Vol] 18.00 10*3/uL High 3.70-11.00 [facility] Comment on above: Order Comment: Speci men Type: BLOOD SPECIMEN Ordering Facility: [facility] Address: [address] [place] [address] Performed By: #### 2 4321-2 #### [facility] CLIA [id number] [address] [place] [address] [place] Erythrocyte distribution width (RBC) [Ratio] 15.7 % High 11.5-15.0 [facility] Comment on above: Order Comment: Speci men Type: BLOOD SPECIMEN Ordering Facility: [facility] Address: [address] [place] [address] Performed By: #### 3 4528-0, 86895-5 #### [facility] CLIA [id number] [address] [place] [address] [place] Hematocrit (Bld) [Volume fraction] 38.1 % Low 39.0-51.0 [facility] Comment on above: Order Comment: Speci men Type: BLOOD SPECIMEN Ordering Facility: [facility] Address: [address] [place] [address] Performed By: #### 3 4528-0, 86081-6 #### [facility] CLIA [id number] [address] [place] [address] [place] Hemoglobin (Bld) [Mass/Vol] 13.0 g/dL Normal 13.0-17.0 [facility] Comment on above: Order Comment: Speci men Type: BLOOD SPECIMEN Ordering Facility: [facility] Address: [address] [place] [address] Performed By: #### 3 4528-0, 35535-1 #### [facility] CLIA [id number] [address] [place] [address] [place] MCH (RBC) [Entitic mass] 31.9 pg Normal 26.0-34.0 [facility] Comment on above: Order Comment: Speci men Type: BLOOD SPECIMEN Ordering Facility: [facility] Address: [address] [place] [address] Performed By: #### 3 4528-0, 02068-0 #### [facility] CLIA [id number] [address] [place] [address] [place] MCHC (RBC) [Mass/Vol] 34.1 g/dL Normal 30.5-36.0 [facility] Comment on above: Order Comment: Speci men Type: BLOOD SPECIMEN Ordering Facility: [facility] Address: [address] [place] [address] Performed By: #### 3 4528-0, 56641-2 #### [facility] CLIA [id number] [address] [place] [address] [place] MCV (RBC) [Entitic vol] 93.6 fL Normal 80.0-100.0 [facility] Comment on above: Order Comment: Speci men Type: BLOOD SPECIMEN Ordering Facility: [facility] Address: [address] [place] [address] Performed By: #### 3 4528-0, 11658-6 #### [facility] CLIA [id number] [address] [place] [address] [place] Nucleated RBC (Bld) [#/Vol] 10*3/uL Normal <0.01 [facility] Comment on above: Order Comment: Speci men Type: BLOOD SPECIMEN Ordering Facility: [facility] Address: [address] [place] [address] Performed By: #### 3 4528-0, 87417-9 #### [facility] CLIA [id number] [address] [place] [address] [place] Platelet mean volume (Bld) [Entitic vol] 10.8 fL Normal 9.0-12.7 [facility] Comment on above: Order Comment: Speci men Type: BLOOD SPECIMEN Ordering Facility: [facility] Address: [address] [place] [address] Performed By: #### 3 4528-0, 43067-3 #### [facility] CLIA [id number] [address] [place] [address] [place] Platelets (Bld) [#/Vol] 185 10*3/uL Normal 150-400 [facility] Comment on above: Order Comment: Speci men Type: BLOOD SPECIMEN Ordering Facility: [facility] Address: [address] [place] [address] Performed By: #### 3 4528-0, 63366-4 #### [facility] CLIA [id number] [address] [place] [address] [place] RBC (Bld) [#/Vol] 4.07 10*6/uL Low 4.20-6.00 [facility] Comment on above: Order Comment: Speci men Type: BLOOD SPECIMEN Ordering Facility: [facility] Address: [address] [address] Performed By: #### 3 4528-0, 45705-0 #### [facility] CLIA [id number] [place] [address] [place] WBC (Bld) [#/Vol] 13.36 10*3/uL High 3.70-11.00 [facility] Comment on above: Order Comment: Speci men Type: BLOOD SPECIMEN Ordering Facility: [facility] Address: [address] [place] [address] Performed By: #### 3 4528-0, 15211-5 #### [facility] CLIA [id number] [place] CONFIRM BLOOD TYPEon 024 ABO O Normal [facility] Comment on above: Order Comment: Speci men Type: BLOOD SPECIMENOrdering Facility: [facility] Address: [address] [place] [address] Performed By: #### C ONABO ####[facility] [id number] [place] [address] [place] Rh Nom (Bld) Positive Normal [facility] Comment on above: Order Comment: Speci men Type: BLOOD SPECIMENOrdering Facility: [facility] Address: [address] [place] [address] Performed By: #### C ONABO ####[facility] [id number] [place] [address] [place] CT Abdomen/Pelvis w/ Contras ton 07-23-2024 CT Abdomen/Pelvis w/ Contrast Exam Date/Time: 07/22/2024 19:09 EDT Reason for Exam: Other (please specify) Report IMPRESSION: MODERATE TO LARGE VOLUME PNEUMOPERITONEUM OF UNCERTAIN ETIOLOGY, POSSIBLY RELATED TO COLONIC DIVERTICULOSIS AND RECENT COLONOSCOPY. PROBABLE MILD TO MODERATE ILEUS. CHRONIC FINDINGS, NOTED. EXAM: CT Abdomen/Pelvis w/ Contrast DATE: 07/22/2024 6:54 PM CLINICAL HISTORY: Abdominal pain and distention after recent colonoscopy. History of colorectal carcinoma. COMPARISON: CT abdomen pelvis 07/07/2018, and outside lumbar spine MRI 08/14/2023. TECHNIQUE: Spiral imaging was obtained of the abdomen and pelvis after the uneventful infusion of approximately 100 mL of Isovue [address] scans at this facility use dose modulation, iterative reconstruction, and/or weight based dosing when appropriate to reduce radiation dose to as low as reasonably achievable. Unless otherwise stated, incidental findings identified in this report do not require routine follow-up imaging. FINDINGS: Liver: No enlargement, significant fatty infiltration, suspicious mass or lesion. Biliary: A few small gallstones within a mildly dilated gallbladder. No abnormal gallbladder wall thickening, surrounding inflammation, or biliary ductal dilatation. Pancreas: No suspicious mass, organized fluid collection, surrounding inflammation, or abnormal pancreatic ductal dilatation. Spleen: Unremarkable. Adrenals: Unremarkable. Kidneys: Approximately 5 to 6 mm nonobstructing left mid and 3 to 4 mm right upper pole calculi. No hydronephrosis or suspicious mass. Several small fluid density nonenhancing peripelvic cysts again noted. GI tract: Mild gaseous distention of the transverse colon. Mild to moderate predominantly sigmoid diverticulosis Mild stool burden. Mildly dilated small bowel with fluid and fecalized contents. No abnormal wall thickening. The appendix is not confidently identified, without findings to suggest acute appendicitis. Lymph nodes: No pathologically enlarged lymph nodes. Vasculature: No aneurysm or dissection. Mesentery/peritoneum/re troperitoneum: Moderate to large volume pneumoperitoneum. No ascites, organized fluid collection, inflammatory changes, or suspicious mass. Pelvis: The urinary bladder is unremarkable. Musculoskeletal: No acute osseous findings identified. Mild to moderate degenerative Report changes, predominantly of the lumbar spine. Small periumbilical hernia. Lower thorax: Moderate probable bibasilar atelectasis and trace pleural effusions. Ordering Provider: Celeste Ruiz FINAL REPORT Dictated: 07/23/2024 8:26 am Bong Marshall MD Signed (Electronic Signature): 07/23/2024 8:26 am Signed by: Bong Marshall MD Transcribed by: VEENA Technologist: NADIR Technical Comments GFR (mL/min/1/73m2) 80 Contrast: Isovue 300 Contrast amount in ml's: 100 Normal [facility] Fibrinogen PPP-mCncon 2023 Fibrinogen Coag (PPP) [Mass/Vol] 640 mg/dL High 200-400 [facility] Comment on above: Order Comment: Speci men Type: BLOOD SPECIMENOrdering Facility: [facility] Address: [address] [place] [address] Performed By: #### 6 462-6 #### [facility] CLIA [id number] [address] [facility] [place] [address] [place] HISTORY PHYSICALon HISTORY PHYSICAL HNO ID: [id number] Author: DEBORAH NORMAN MD Service: Colorectal Author Type: Resident Type: H&P Filed: 07/23/2024 00:40 Note Text: Attestation signed by Deborah Norman MD at 07/23/2024 12:40 AM Attending Note I evaluated the patient and personally participated in the tripp components. I agree with the resident's findings and plan as documented and have discussed the case and management of the patient's care with the resident. Moderate volume pneumoperitoneum and tenderness to palpation on exam. Concern for colonic perforation-to OR for diagnostic laparoscopy Signature: Deborah Norman MD Date: 07/23/2024 Time: 12:39 AM COLORECTAL SURGERY HISTORY AND PHYSICAL NOTE Mervat Grayson [id number] Subjective CHIEF COMPLAINT: pneumoperitoneum HISTORY OF PRESENT ILLNESS: Mr. Grayson is a 73 year old male with PMHx T3N0 rectal cancer(diagnosed 07/2022), s/p MARIZA(finished 03/2023), hx of PE on Xarelto(last dose 07/22), RA(on prednisone 5mg daily), BPH who presents for abdominal pain and pneumoperitoneum on CT after surveillance colonoscopy 07/21. Colonoscopy showed just scar in the distal rectum but otherwise no immediate complications. He started to have worsening diffuse abdominal pain and distention on 07/22. He went to OSH ED and a CT A/P was done showing large volume pneumoperitoneum. He is currently HDS and temp 37.7, WBC 16. PAST MEDICAL HISTORY Diagnosis Date Acute low [...] Never Smokeless tobacco: Never Vaping Use Vaping status: Never Used Substance Use Topics Alcohol use: Yes Comment: rarely Drug use: No (Not in a hospital admission) Current Facility-Administered Medications Medication Dose Route Frequency anti-inhibitor coagulant complex 5,000 Units in sterile water 100 mL (FEIBA) 5,000 Units INTRAVENOUS ONCE NaCl 0.9% iv flush bag 50 mL INTRAVENOUS ONCE fentaNYL 50 mcg/mL 50 mcg injection (SUBLIMAZE) 50 mcg INTRAVENOUS PRN lactated ringers iv infusion 75 mL/hr INTRAVENOUS CONTINUOUS piperacillin-tazobactam iv piggyback 3.375 g in dextrose (iso-osmotic) 50 mL (ZOSYN) 3.375 g INTRAVENOUS ONCE NaCl 0.9% iv flush bag 20 mL INTRAVENOUS PRN ALLERGIES No Known Allergies COMPLETE REVIEW OF SYSTEMS: 10 point review of systems negative except for pertinent positives mentioned in HPI Objective PHYSICAL EXAM: BP 166/91 Pulse 89 Temp (Src) 99.8 (Oral) Resp 18 Wt 248 lb (112.5kg) SpO2 94% O2 Therapy: Room Air CONSTITUTIONAL: No acute distress NEUROLOGIC/PSYCHIATRIC: Oriented to time, place AND person and Alert HEENT: EOM's intact and No lesions LUNGS: breathing comfortably on RA HEART: Regular rate, normal heart sounds ABDOMEN: distended, diffusely tender MUSCULOSKELETAL: No deformities I/O past 24h: No intake or output data in the 24 hours ending 07/23/24 0019 DATA: Diagnostic tests reviewed for today's visit: Labs: CBC, Coags, BMP, Mg, Phos Recent Labs 07/22/24 2334 WBC 15.98* HB 13.5 HCT 39.9 PLT 185 INR 1.3 APTT 40.1* Liver Function, Amylase, AND Lipase Imaging: CT A/P: Large volume pneumoperitoneum (Images not available) Assessment/Plan ASSESSMENT AND PLAN Mr. Grayson is a 73 year old male with PMHx T3N0 rectal cancer(diagnosed 07/2022), s/p MARIZA(finished 03/2023), hx of PE on Xarelto(last dose 07/22), RA(on prednisone 5mg daily), BPH who presents for abdominal pain and pneumoperitoneum on CT after surveillance colonoscopy 07/21. - Plan for emergent diagnostic lap, possible ex lap, possible colectomy, possible ostomy. It was discussed with the patient and he agrees - Will order FEIBA given recent AC use Discussed with staff brush fabrication supervisor, Dr. Emerson Herrera MD General Surgery Resident Blue Team Pager: [phone] General Surgery Colorectal Surgery On-Call Pager: [phone] Normal [facility] Magnesium SerPl-mCncon 07-23 Magnesium [Mass/Vol] 1.6 mg/dL Low 1.7-2.3 [facility] Comment on above: Order Comment: Nazario brooks Type: BLOOD SPECIMEN Ordering Facility: [facility] Address: [address] [place] [address] Performed By: #### 3 4528-0, 99296-5 #### [facility] CLIA [id number] [address] [place] [address] [place] Magnesium [Mass/Vol] 1.6 mg/dL Low 1.7-2.3 [facility] Comment on above: Order Comment: Nazario brooks Type: BLOOD SPECIMEN Ordering Facility: [facility] Address: [address] [place] [address] Performed By: #### 3 4528-0, 53779-7 #### [facility] CLIA [id number] [place] OPERATIVE NOon 07-23-2024 OPERATIVE NO HNO ID: [id number] Author: DEBORAH NORMAN MD Service: Colorectal Author Type: Physician Type: Operative Report Filed: 07/23/2024 05:00 Note Text: COLON AND RECTAL SURGERY OPERATIVE REPORT PATIENT NAME: Mervat Grayson ADMISSION DATE: 07/22/2024 LOG ID: [id number] SURGERY/PROCEDURE DATE: 07/22/2024 - 07/23/2024 INCISION/PROCEDURE START TIME: 1:10 AM INCISION CLOSE/PROCEDURE END TIME: 3:43 AM AGE: [age] year old SEX: male SURGEON(S)/PROCEDURALIS T(S) AND RAIL OPERATIONS CONTROLLER(S): Surgeons and Role: * Deborah Norman MD - Primary * Keke Rodriguez MD - Resident - Assisting No Additional Staff ANESTHESIA: General PREOPERATIVE DIAGNOSIS (ES): Colon perforation s/p colonoscopy POSTOPERATIVE DIAGNOSIS (ES): Colon perforation s/p colonoscopy NAME OF OPERATION: Laparoscopic Right Colectomy, Umbilical Hernia Repair INDICATIONS FOR PROCEDURE: Colon perforation s/p colonoscopy OPERATIVE FINDINGS: Cecum with evidence of walled off perforation, serosal splitting of the ascending colon This case was notable for an infection present at the time of surgery as indicated by the presence of phlegmon. This was identified in the organ/intraperitoneal space. DESCRIPTION OF PROCEDURE: The patient was brought to the operating room and placed under general anesthesia in lithotomy position. The abdomen was prepped and draped in normal sterile fashion. The patient received appropriate preop antibiotics and DVT prophylaxis. A surgical time-out was performed. The abdomen was entered using open insertion technique at the umbilicus. The existing incarcerated fat/hernia sac was excised and sent to pathology. The 12 mm Chacon trocar was placed through this, and the abdomen was insufflated to 15 mmHg. 5 mm trocars were placed in the left upper quadrant, left mid abdomen, and suprapubic positions under direct visualization. The abdomen was inspected and the cecum was seen to be dilated with evidence of recent walled off perforation with fibrinous exudate. There was serosal splitting of the ascending colon. The findings were consistent with microperforation of cecum. Thankfully there was no free fluid or colonic contents. The peritoneum at the base of the terminal ileal mesentery was incised and the retroperitoneal dissection was carried out laterally beyond the colon and in a cephalad direction until the duodenum was identified. The duodenal attachments to the hepatic flexure mesentery were dissected laterally beyond the colon. The lateral attachments of the colon were then divided and the hepatic flexure was mobilized. The proximal omental-colic attachments were divided. Once the colon had been mobilized sufficiently, the duodenum was inspected as was the retroperitoneum. The duodenum was normal with no injuries and there was no bleeding in the retroperitoneum. The ileocolic pedicle was then identified and ligated at its midpoint with the LigaSure and reinforced with Endoloop. The cecum was grasped and the grasper was locked. The umbilical port was then removed and the periumbilical incision was extended around the umbilicus and a wound retractor was placed within this incision. The specimen was then delivered out through the incision and oriented. The mesentery was divided to the terminal ileum and the transverse colon. A [id number] functional end-to-end anastomosis was created using a DELVIN 80 purple stapler in Harvey technique. The common channel staple line was inspected and there was no evidence of bleeding. The resultant enterotomy was closed and specimen divided with a DELVIN 80 purple reload/. A 3-0 Vicryl suture was placed at the crotch of the anastomosis. The transverse staple line was oversewn with a 3-0 PDS. The anastomosis was inspected and seen to be healthy, widely patent, and intact. We reduced it back into the abdomen. The fascia was then closed with running #1 PDS suture, repairing the umbilical hernia at the same time. The wound was irrigated and the skin was closed with 4-0 Monocryl sutures. ESTIMATED BLOOD LOSS: 200 cc SPECIMENS: Right colon, umbilical hernia sac DRAINS: None COMPLICATIONS: None INTRAOPERATIVE FLUIDS: See anesthesia record. SPONGE/INSTRUMENT/NEEDL E COUNTS: Correct x2. PRESENCE STATEMENT: I was present for the entire procedure as I have dictated above. Deborah Norman M.D. Department of Surgery Division of Colon and Rectal Surgery Normal [facility] PT panel Coag (PPP)on 2023 INR Coag (PPP) [Relative time] 1.0 {INR} Normal 0.9-1.3 [facility] Comment on above: Order Comment: Speci men Type: BLOOD SPECIMENOrdering Facility: [facility] Address: [address] [place] [address] Result Comment: Myrna min K Antagonist (VKA) Therapeutic Range: INR 2 to 3 (Target INR of 2.5) Note: For patients treated with VKA drugs, such as warfarin, the [employer] 2012 Guideline recommends a therapeutic INR range of 2 to 3 (target INR of 2.5). This recommendation includes high-risk patients with antiphospholipid syndrome with previous arterial or venous thromboembolism, current-generation mechanical or bioprosthetic aortic heart valve replacement. Note: Patients with mechanical aortic valve replacement and additional risk factors for thromboembolic events (atrial fibrillation, previous thromboembolism, LV dysfunction, hypercoagulable conditions) or an older generation mechanical AVR (i.e., ball in-Cage) or any mechanical MVR should have a INR therapeutic range of 2.5 to 3.5 (target INR of 3). Dmitriy ONEILL, et al. Chest 2012, 141:7S-47S Jelena RA, et al. [facility] 2017, 70: 252-289 Performed By: #### 6 462-6 #### [facility] CLIA [id number] [address] [place] [address] [place] PT Coag (PPP) [Time] 11.4 s Normal 9.7-13.0 [facility] Comment on above: Order Comment: Speci men Type: BLOOD SPECIMENOrdering Facility: [facility] Address: [address] [place] [address] Performed By: #### 6 462-6 #### [facility] CLIA [id number] [address] [place] [address] [place] Phosphate SerPl-mCncon 07-23 Phosphate [Mass/Vol] 2.8 mg/dL Normal 2.7-4.8 [facility] Comment on above: Order Comment: Speci men Type: BLOOD SPECIMEN Ordering Facility: [facility] Address: [address] [place] [address] Performed By: #### 3 4528-0, 50927-0 #### [facility] CLIA [id number] [address] [place], [place] [address] [place] Phosphate [Mass/Vol] 2.8 mg/dL Normal 2.7-4.8 [facility] Comment on above: Order Comment: Speci men Type: BLOOD SPECIMEN Ordering Facility: [facility] Address: [address] [place] [address] Performed By: #### 3 4528-0, 76808-5 #### [facility] CLIA [id number] [place] SURGICAL PATHOLOGYon 024 CASE REPORT Normal [facility] Comment on above: Order Comment: Speci men Type: TISSUE SPECIMENOrdering Facility: [facility] Address: [address] [place] [address] Result Comment: Surg ical Pathology Report Case: [id number] Authorizing Provider: Deborah Norman MD Collected: 07/23/2024 01:16 AM Ordering Location: [facility] Received: 07/23/2024 07:14 AM Operating Room Pathologist: Zackery Josue MD Specimens: A) - Hernia Sac, umbilical hernia sac B) - Colon, Resection, right colon Performed By: #### S ####[facility] [id number] [address] [place] CLINICAL HISTORY Normal [facility] Comment on above: Order Comment: Speci men Type: TISSUE SPECIMENOrdering Facility: [facility] Address: [address] [place] [address] Result Comment: Pre- op diagnosis: Pneumoperitoneum [K66.8] Performed By: #### S ####[facility] [id number] [address] FINAL DIAGNOSIS Normal [facility] Comment on above: Order Comment: Speci men Type: TISSUE SPECIMENOrdering Facility: [facility] Address: [address] [place] [address] Result Comment: A. S oft tissue, umbilical region, excision: - Benign fibroadipose and fibromembranous tissue with acute inflammation, consistent with hernia sac. B. Right colon, terminal ileum, and appendix, right hemicolectomy: - Dilated colon with transmural suppurative inflammation and necrosis, consistent with ischemic bowel injury. - Appendix with fibrolipomatous obliteration and acute serositis. - Small bowel with acute serositis. - Benign lymph nodes. JEL 07/27/2024 Performed By: #### S ####[facility] [id number] [address] FINAL PERFORMING LAB Normal [facility] Comment on above: Order Comment: Speci men Type: TISSUE SPECIMENOrdering Facility: [facility] Address: [address] [place] [address] Result Comment: Diag nostic interpretation performed at [facility], [address] [place] [address] CLIA# [id number] Carbide Grinder: Brett Escalera M.D. Performed By: #### S ####[facility] [id number] [address] GROSS DESCRIPTION A. Hernia Sac Normal [facility] Comment on above: Order Comment: Speci men Type: TISSUE SPECIMENOrdering Facility: [facility] Address: [address] [place] [address] Result Comment: Rece ived in formalin designated umbilical hernia sac is a segment of santos-purple membranous tissue with attached fibrofatty tissue measuring 4 x 2.5 x 3.4 cm. Sectioning reveals a slightly hyperemic fibrofatty cut surface. No areas of induration or nodularity are grossly appreciated. A medical device sales representative section is submitted in one cassette. B. Colon, Resection Received in formalin designated right colon is a specimen consisting of a segment of small bowel (11.4 cm in length and averaging 3.7 cm in circumference), segment of colon (28 cm in length and measuring up to 16.8 cm in circumference), and appendix (6.3 cm in length and averaging 0.4 cm in circumference). The proximal margin is inked blue, and the distal margin is inked orange. Starting at 11.2 cm from the distal margin, the mucosal surface is purple and dusky with focal areas of possible necrosis within the cecal pouch. The colon is dilated within this location. At the area of necrotic mucosa, the serosal surface has an irregular defect measuring 1.3 x 0.6 cm. However, a definitive transmural defect is not grossly appreciated. The wall within this location is hemorrhagic. The wall of the dilated colon measures 0.1 cm in thickness. The remainder of the mucosal surface is santos-pink with normal mucosal ridges. The wall averages 0.2 cm in thickness. The serosal surface is santos-purple and dusky with hemorrhagic adhesions near the cecum. The mucosal surface of the small bowel is santos-pink with normal mucosal ridges. The wall of the small bowel averages 0.3 cm in thickness. The serosal surface is santos-purple and smooth. The serosal surface of the appendix is santos-pink and smooth. Sectioning of the appendix reveals a pinpoint lumen devoid of fecalith, purulent material, or stones. The wall averages 0.2 cm in thickness, and no lesions or perforations are grossly appreciated. Sectioning and palpation of the attached soft tissue reveals multiple santos-pink lymph nodes measuring up to 0.6 cm in greatest dimension. Education Officer sections are submitted as follows: B1 perpendicular margins, B2 necrotic mucosa with serosal defect and cecum, B3 dusky mucosa ascending colon, B4 transition from normal to dilated colon, B5 hemorrhagic adhesions on serosal surface, B6 ileocecal valve, B7 appendix, B8 cross-section vessels in soft tissue, B9 lymph nodes. BF July 23, 2024 12:09 PM Gross examination performed at [facility], [address] [place] [address] CLIA # [id number] Performed By: #### S ####[facility] [id number] [address] [place] THERAPY NTon 07-23-2024 THERAPY NT HNO ID: [id number] Author: MILTON MAYA OT/Tim Service: Occupational Therapy Author Type: Occupational Therapist Type: Therapy (PT/OT/Speech/Resp) Filed: 07/23/2024 14:51 Note Text: OCCUPATIONAL THERAPY MISSED VISIT SERVICE DATE: 07/23/2024 SERVICE TIME: 1450 ROOM: [place] [address] Patient not seen due to Clinical Appropriateness. SIGNATURE: PAOLO Claros PATIENT NAME: Mervat Grayson DATE: July 23, 2024 TIME: 2:51 PM [facility] THERAPY NT HNO ID: [id number] Author: JENNIFER BRISENO, PT Service: Physical Therapy Author Type: Physical Therapist Type: Therapy (PT/OT/Speech/Resp) Filed: 07/23/2024 14:14 Note Text: Physical Therapy Evaluation Summary SERVICE DATE: 07/23/2024 SERVICE TIME: 1336 to 1359 ROOM: [place] [address] PT 6 Clicks Score: 12 DISCHARGE RECOMMENDATIONS Unable to determine ASSESSMENT Response to Therapy Interventions: Good Participation in Activities, Multiple Ongoing Medical Issues Patient tolerating LE exercise in bed well this date with controlled pain. BP taken in supine prior to mobility assessment which was 96/63. RN asked PT to defer sitting EOB at this time due to hypotension concerns this AM. PT unable to assess functional mobility this date although anticipate quick recovery as long as BP improves. PRECAUTIONS Abdominal, Fall Risk CURRENT HOSPITAL COURSE S/p right hemicolectomy and UHR Relevant Past Medical History: rectal CA, RA, PE HOME LIVING Patient Lives With: Spouse Assistance Available: PRN (Spouse, daughter and son available) Entry To Home: Stairs, With Rail Number Of Stairs Into Home: 3 Number Of Stairs To Bed/Bath: 0 Tub/Shower Type: walkin Laundry: 1st floor - shares with spouse Equipment Owned: Rollator PRIOR FUNCTIONAL LEVEL Within Functional Limits Patient reports previous indepedence with ADLs, shares IADLs with spouse, ambulates without AD, drives SUBJECTIVE Patient pleasant and agreeable to PT evaluation THERAPY DIAGNOSIS Reduced mobility-other, Decreased activities of daily living (ADL) TREATMENT INTERVENTIONS Evaluation, Therapeutic Activity (86991) Timed Code Treatment (minutes): 8 Skilled Treatment Time (minutes): 23 PT provided education on importance of in hospital mobility, current functional level, plan of care and possible discharge recommendation. Exercise Ankle Pumps (number of reps): 20 Quad Sets (number of reps): 10 Glut Sets (number of reps): 20 Heel Slides (number of reps): 10 SLR (number of reps): 5 Hip Abduction (number of reps): 10 TRAINING AND EDUCATION PROVIDED Bed Mobility, Anatomy and Impact on Deficits, Assistive Device Use, Discharge Planning, Expected Functional Level, Exercise Program, Pain Neuroscience, Positioning, Precautions/Restriction s, Role of Physical Therapy THERAPEUTIC SKILLS USED Activity Dosing, Cues for Sequencing/Proper Technique for Activity, Assessment of Tolerance Including Vitals Response to Activity, Cuing Tactile, Cuing Visual, Cuing Verbal FUNCTIONAL STATUS Bed Mobility Supine To Sit: Additional Information deferred this date due to hypotension Transfers Bed to Chair Gait Stairs GOALS Patient will demonstrate understanding of importance of mobility during hospital stay and resolve all functional needs identified. Transfer Supine to/from Sit with: Stand By Assistance Transfer Sit to/from Stand with: Stand By Assistance Ambulate with: Stand By Assistance Distance: 50 ft Device: Wheeled Walker Rehab Potential: Good PLAN PT Frequency: 3 Times Per Week Treatment Interventions: Education, Strengthening, Functional Mobility Training, Balance Training, Neuromuscular Re-education, Pain Management Plan for Next Visit: Bed Mobility, Fall Prevention, Gait Training, Standing Balance, Standing Tolerance, Walker Training, Sitting Balance SIGNATURE: Jennifer Briseno PT PATIENT NAME: Mervat Grayson DATE: July 23, 2024 TIME: 2:13 PM [facility] THERAPY NT HNO ID: [id number] Author: JENNIFER BRISENO PT Service: Physical Therapy Author Type: Physical Therapist Type: Therapy (PT/OT/Speech/Resp) Filed: 07/23/2024 10:34 Note Text: PHYSICAL THERAPY MISSED VISIT SERVICE DATE: 07/23/2024 SERVICE TIME: 1033 ROOM: [place] [address] Patient not seen due to Clinical Appropriateness. Patient hypotensive per RN. PT will hold evaluation at this time SIGNATURE: Jennifer Briseno PT PATIENT NAME: Mervat Grayson DATE: July 23, 2024 TIME: 10:34 AM Normal [facility] aPTT PPPon 07-23-2024 aPTT Coag (PPP) [Time] 31.0 s Normal 23.0-32.4 [facility] Comment on above: Order Comment: Speci men Type: BLOOD SPECIMENOrdering Facility: [facility] Address: [address] [place] [address] Performed By: #### 6 462-6 #### [facility] CLIA [id number] [address] [place] [address] [place] [address] [place] Basic metabolic 2000 panelon 07-22-2024 Anion gap [Moles/Vol] 12 mmol/L Normal 8-15 [facility] Comment on above: Order Comment: Speci men Type: BLOOD SPECIMEN Ordering Facility: [facility] Address: [address] [place] [address] Performed By: #### 3 4528-0, 76204-0 #### [facility] CLIA [id number] [address] [place] [address] [place] Calcium [Mass/Vol] 8.8 mg/dL Normal 8.5-10.2 [facility] Comment on above: Order Comment: Speci men Type: BLOOD SPECIMEN Ordering Facility: [facility] Address: [address] [place] [address] Performed By: #### 3 4528-0, 89089-8 #### [facility] CLIA [id number] [address] [place] [address] [place] Chloride [Moles/Vol] 100 mmol/L Normal 98-107 [facility] Comment on above: Order Comment: Speci men Type: BLOOD SPECIMEN Ordering Facility: [facility] Address: [address] [place] [address] Performed By: #### 3 4528-0, 77126-3 #### [facility] CLIA [id number] [address] [place] [address] [place] CO2 [Moles/Vol] 23 mmol/L Normal 22-30 [facility] Comment on above: Order Comment: Speci men Type: BLOOD SPECIMEN [facility]ing Facility: [facility] Address: [address] [place] [address] Performed By: #### 3 4528-0, 96273-9 #### [facility] CLIA [id number] [address] [place] [address] [place] Creatinine [Mass/Vol] 1.06 mg/dL Normal 0.73-1.22 [facility] Comment on above: Order Comment: Speci men Type: BLOOD SPECIMEN Ordering Facility: [facility] Address: [address] [place] [address] Performed By: #### 3 4528-0, 59022-9 #### [facility] CLIA [id number] [address] [place], [place] [address] [place] Creatinine and Glomerular filtration rate.predicted panel (S/P/Bld) 75 mL/min/1.73m??? Normal >=60 [facility] Comment on above: Order Comment: Nazario brooks Type: BLOOD SPECIMEN [facility]ing Facility: [facility] Address: [address] [place] [address] Result Comment: Rebekah mated Glomerular Filtration Rate [...] accurately reflect actual GFR. Performed By: #### 3 4528-0, 26184-1 #### [facility] CLIA [id number] [place] [address] [place] Glucose [Mass/Vol] 104 mg/dL High 74-99 [facility] Comment on above: Order Comment: Nazario brooks Type: BLOOD SPECIMEN [facility]ing Facility: [facility] Address: [address] [place] [address] Result Comment: The [place] [employer] (ADA) provides guidance for cutoff values for fasting glucose and random glucose. The ADA defines fasting as no caloric intake for at least 8 hours. Fasting plasma glucose results between 100 to 125 mg/dL indicate increased risk for diabetes (prediabetes). Fasting plasma glucose results greater than or equal to 126 mg/dL meet the criteria for diagnosis of diabetes. In the absence of unequivocal hyperglycemia, results should be confirmed by repeat testing. In a patient with classic symptoms of hyperglycemia or hyperglycemic crisis, random plasma glucose results greater than or equal to 200 mg/dL meet the criteria for diagnosis of diabetes. Reference: Standards of Medical Care in Diabetes 2016, [place] [employer]. Diabetes Care. 2016.39(Suppl 1). Performed By: #### 3 4528-0, 82737-7 #### [facility] CLIA [id number] [address] [place] [address] [place] Potassium [Moles/Vol] 3.7 mmol/L Normal 3.7-5.1 [facility] Comment on above: Order Comment: Speci men Type: BLOOD SPECIMEN [facility]ing Facility: [facility] Address: [facility] [place] [address] Performed By: #### 3 4528-0, 75157-1 #### [facility] CLIA [id number] [address] [place] [address] [place] [facility] Sodium [Moles/Vol] 135 mmol/L Low 136-144 [facility] Comment on above: Order Comment: Speci men Type: BLOOD SPECIMEN Ordering Facility: [facility] Address: [address] [place] [address] Performed By: #### 3 4528-0, 30932-7 #### [facility] CLIA [id number] [address] [place] [address] STATES [facility] Urea nitrogen [Mass/Vol] 11 mg/dL Normal 9-24 [facility] Comment on above: Order Comment: Speci men Type: BLOOD SPECIMEN Ordering Facility: [facility] Address: [address] [place] [address] Performed By: #### 3 4528-0, 89417-8 #### [facility] CLIA [id number] [address] [place] [address] CBC panel Auto (Bld)on 07-22 Erythrocyte distribution width (RBC) [Ratio] 15.9 % High 11.5-15.0 [facility] Comment on above: Order Comment: Speci men Type: BLOOD SPECIMEN Ordering Facility: [facility] Address: [address] [place] [address] Performed By: #### 2 4321-2 #### [facility] CLIA [id number] [address] [place] [address] [place] Hematocrit (Bld) [Volume fraction] 39.9 % Normal 39.0-51.0 [facility] Comment on above: Order Comment: Speci men Type: BLOOD SPECIMEN Ordering Facility: [facility] Address: [address] [place] [address] Performed By: #### 2 4321-2 #### [facility] CLIA [id number] [address] [place] [address] [place] Hemoglobin (Bld) [Mass/Vol] 13.5 g/dL Normal 13.0-17.0 [facility] Comment on above: Order Comment: Speci men Type: BLOOD SPECIMEN Ordering Facility: [facility] Address: [address] [place] [address] Performed By: #### 2 4321-2 #### [facility] CLIA [id number] [address] [place] [address] [place] MCH (RBC) [Entitic mass] 31.5 pg Normal 26.0-34.0 [facility] Comment on above: Order Comment: Speci men Type: BLOOD SPECIMEN Ordering Facility: [facility] Address: [address] [place] [address] Performed By: #### 2 4321-2 #### [facility] CLIA [id number] [address] [place] [address] [place] MCHC (RBC) [Mass/Vol] 33.8 g/dL Normal 30.5-36.0 [facility] Comment on above: Order Comment: Speci men Type: BLOOD SPECIMEN Ordering Facility: [facility] Address: [address] [place] [address] Performed By: #### 2 4321-2 #### [facility] CLIA [id number] [address] [place] [address] [place] MCV (RBC) [Entitic vol] 93.2 fL Normal 80.0-100.0 [facility] Comment on above: Order Comment: Speci men Type: BLOOD SPECIMEN Ordering Facility: [facility] Address: [address] [place] [address] Performed By: #### 2 4321-2 #### [facility] CLIA [id number] [address] [place] [address] [place] Nucleated RBC (Bld) [#/Vol] 10*3/uL Normal <0.01 [facility] Comment on above: Order Comment: Speci men Type: BLOOD SPECIMEN Ordering Facility[facility] Address: [address] [place] [address] Performed By: #### 2 4321-2 #### [facility] CLIA [id number] [address] [place] [address] [place] Platelet mean volume (Bld) [Entitic vol] 10.3 fL Normal 9.0-12.7 [facility] Comment on above: Order Comment: Speci men Type: BLOOD SPECIMEN Ordering Facility: [facility] Address: [address] [place] [address] Performed By: #### 2 4321-2 #### [facility] CLIA [id number] [address] [place] [address] [place] Platelets (Bld) [#/Vol] 185 10*3/uL Normal 150-400 [facility] Comment on above: Order Comment: Speci men Type: BLOOD SPECIMEN Ordering Facility: [facility] Address: [address] [place] [address] Performed By: #### 2 4321-2 #### [facility] CLIA [id number] [address] [place] [address] [place] RBC (Bld) [#/Vol] 4.28 10*6/uL Normal 4.20-6.00 [facility] Comment on above: Order Comment: Speci men Type: BLOOD SPECIMEN Ordering Facility: [facility] Address: [address] [place] [address] Performed By: #### 2 4321-2 #### [facility] CLIA [id number] [address] [place] [address] [place] WBC (Bld) [#/Vol] 15.98 10*3/uL High 3.70-11.00 [facility] Comment on above: Order Comment: Speci men Type: BLOOD SPECIMEN Ordering Facility: [facility] Address: [address] [place] [address] Performed By: #### 2 4321-2 #### [facility] CLIA [id number] [address] [place] [address] [place] CBC w/ Auto Diffon 4 Basophils/100 WBC (Bld) 0.2 % Normal 0.0-2.0 [facility] Comment on above: Performed By: #### 2 440155 #### [facility] [address] [place] [address] Basophils/Leukocytes Auto (Bld) [Pure # fraction] 0.0 E9/L Normal 0.0-0.2 [facility] Comment on above: Performed By: #### 2 873012 #### [facility] [address] [place] [address] Eosinophils (Bld) [#/Vol] 0.1 E9/L Normal 0.0-0.5 [facility] Comment on above: Performed By: #### 2 403404 #### [facility] [address] [place] [address] Eosinophils/100 WBC (Bld) 0.5 % Normal 0.0-8.0 [facility] Comment on above: Performed By: #### 2 841336 #### [facility] [address] [place] [address] Erythrocyte distribution width (RBC) [Ratio] 15.9 % High 10.9-14.2 [facility] Comment on above: Performed By: #### 2 562061 #### [facility] [address] [place] [address] Hematocrit (Bld) [Volume fraction] 38.0 % Normal 37.7-49.0 [facility] Comment on above: Performed By: #### 2 999264 #### [facility] [address] [place] [address] Hemoglobin (Bld) [Mass/Vol] 12.8 g/dL Low 13.5-17.5 [facility] Comment on above: Performed By: #### 2 818348 #### [facility] [address] [place] [address] Lymphocytes (Bld) [#/Vol] 0.7 E9/L Low 1.0-4.0 [facility] Comment on above: Performed By: #### 2 193981 #### [facility] [address] [place] [address] Lymphocytes/100 WBC (Bld) 4.9 % Low 14.0-50.0 [facility] Comment on above: Performed By: #### 2 575101 #### [facility] [address] [place] [address] MCH (RBC) [Entitic mass] 31.7 pg Normal 27.0-34.0 [facility] Comment on above: Performed By: #### 2 226549 #### [facility] [address] [place] [address] MCHC (RBC) [Mass/Vol] 33.8 g/dL Normal 31.4-36.0 [facility] Comment on above: Performed By: #### 2 941599 #### [facility] [address] [place] [address] MCV (RBC) [Entitic vol] 94.0 fL Normal 80.0-100.0 [facility] Comment on above: Performed By: #### 2 638037 #### [facility] [address] [place] [address] Monocytes (Bld) [#/Vol] 0.6 E9/L Normal 0.2-1.0 [facility] Comment on above: Performed By: #### 2 884833 #### [facility] [address] [place] [address] Neutrophils (Bld) [#/Vol] 12.5 E9/L High 2.0-7.5 [facility] Comment on above: Performed By: #### 2 118535 #### [facility] [address] [place] [address] Neutrophils/100 WBC (Bld) 90.2 % High 36.0-75.0 [facility] Comment on above: Performed By: #### 2 955382 #### [facility] [address] [place] [address] Platelet 202.0 E9/L Normal 150.0-500.0 [facility] Comment on above: Performed By: #### 2 401502 #### [facility] [address] [place] [address] Platelet mean volume (Bld) [Entitic vol] 9.1 fL Normal 6.4-10.8 [facility] Comment on above: Performed By: #### 2 949526 #### [facility] [address] [place] [address] RBC (Bld) [#/Vol] 4.0 E12/L Low 4.3-5.9 [facility] Comment on above: Performed By: #### 2 775041 #### [facility] [address] [place] [address] WBC corrected for nucl RBC Auto (Bld) [#/Vol] 13.9 E9/L High 4.0-11.0 [facility] Comment on above: Performed By: #### 2 022574 #### [facility] [address] [place] [address] CHEMISTRYOrdered By: SYSTEM SYSTEM on 07-22-2024 Lactic Acid Lvl 0.8 mmol/L Normal 0.5 - 2.2 mmol/L [facility] Troponin HS 10.10 pg/mL Low 15.90 - 38.40 pg/mL [facility] Comment on above: Interpretive Data: T he 95% CI (Confidence Interval) PPV (Positive Predictive Value) for myocardial infarction in females is 38 pg/mL, in males 51 pg/mL. The results should be used in conjunction with clinical conditions of myocardial infarction. (Access High Sensitivity Troponin I Instructions For Use, Korina Urmila, May 2018) CHEMISTRYOrdered By: Nida Ca on 07-22-2024 Albumin [Mass/Vol] 3.6 g/dL Normal 3.3 - 5.0 gm/dL [facility] Albumin/Globulin [Mass ratio] 1.3 {ratio} Normal 1.1 - 2.2 [facility] ALP [Catalytic activity/Vol] 78 [iU]/d Normal 21 - 98 Int._Unit/L [facility] ALT No additional P-5'-P [Catalytic activity/Vol] 8 [iU]/d Normal 6 - 46 Int._Unit/L [facility] Anion gap [Moles/Vol] 9 mmol/L Normal 6 - 16 mEq/L [facility] AST [Catalytic activity/Vol] 11 [iU]/d Normal 5 - 43 Int._Unit/L [facility] Bilirubin [Mass/Vol] 2.3 mg/dL High 0.0 - 1 .1 mg/dL [facility] Calcium [Mass/Vol] 8.8 mg/dL Low 8.9 - 11. 1 mg/dL [facility] Chloride [Moles/Vol] 104 mmol/L Normal 101 - 1 11 mmol/L [facility] CO2 [Moles/Vol] 27 mmol/L Normal 21 - 31 mmol/L [facility] Creatinine [Mass/Vol] 1.0 mg/dL Normal 0.5 - 1.3 mg/dL [facility] eGFR 80 mL/min/1.73 m2 Normal >=59mL/min / 1.73 m2 [facility] Globulin (S) [Mass/Vol] 2.7 g/dL Normal 1.4 - 4.0 gm/dL [facility] Glucose [Mass/Vol] 117 mg/dL Normal 55 - 199 mg/dL [facility] Potassium [Moles/Vol] 3.4 mmol/L Low 3.5 - 5.3 mmol/L [facility] Protein [Mass/Vol] 6.3 g/dL Normal 6.0 - 7.8 gm/dL [facility] Sodium [Moles/Vol] 137 mmol/L Normal 135 - 145 mmol/L [facility] Urea nitrogen [Mass/Vol] 13 mg/dL Normal 5 - 21 mg/dL [facility] Urea nitrogen/Creatinine [Mass ratio] 13 mg/mg Normal 10 - 20 [facility] CMPon 07-22-2024 Albumin [Mass/Vol] 3.6 g/dL Normal 3.3-5.0 [facility] Comment on above: Performed By: #### 2 742916 #### [facility] [address] [place] [address] Albumin/Globulin (S) [Mass conc ratio] 1.3 Normal 1.1-2.2 [facility] Comment on above: Performed By: #### 2 171561 #### [facility] [address] [place] [address] ALP [Catalytic activity/Vol] 78 Int._Unit/L Normal 21-98 [facility] Comment on above: Performed By: #### 2 969983 #### [facility] [address] [place] [address] ALT No additional P-5'-P [Catalytic activity/Vol] 8 Int._Unit/L Normal 6-46 [facility] Comment on above: Performed By: #### 2 496889 #### [facility] [address] [place] [address] Anion gap [Moles/Vol] 9 mmol/L Normal 6-16 [facility] Comment on above: Performed By: #### 2 167142 #### [facility] [address] [place] [address] AST [Catalytic activity/Vol] 11 Int._Unit/L Normal 5-43 [facility] Comment on above: Performed By: #### 2 095219 #### [facility] [address] [place] [address] Bilirubin [Mass/Vol] 2.3 mg/dL High 0.0-1.1 [facility] Comment on above: Performed By: #### 2 431055 #### [facility] [address] [place] [address] Calcium [Mass/Vol] 8.8 mg/dL Low 8.9-11.1 [facility] Comment on above: Performed By: #### 2 680871 #### [facility] [address] [place] [address] Chloride [Moles/Vol] 104 mmol/L Normal 101-111 [facility] Comment on above: Performed By: #### 2 959103 #### [facility] [address] [place] [address] CO2 [Moles/Vol] 27 mmol/L Normal 21-31 [facility] Comment on above: Performed By: #### 2 837401 #### [facility] [address] [place] [address] Creatinine [Mass/Vol] 1.0 mg/dL Normal 0.5-1.3 [facility] Comment on above: Performed By: #### 2 698758 #### [facility] [address] [place] [address] Globulin (S) [Mass/Vol] 2.7 g/dL Normal 1.4-4.0 [facility] Comment on above: Performed By: #### 2 641824 #### [facility] [address] [place] [address] Glucose [Mass/Vol] 117 mg/dL Normal 55-199 [facility] Comment on above: Performed By: #### 2 313186 #### [facility] [address] [place] [address] Potassium [Moles/Vol] 3.4 mmol/L Low 3.5-5.3 [facility] Comment on above: Performed By: #### 2 618876 #### [facility] [address] [place] [address] Protein [Mass/Vol] 6.3 g/dL Normal 6.0-7.8 [facility] Comment on above: Performed By: #### 2 513209 #### [facility] [address] [place] [address] Sodium [Moles/Vol] 137 mmol/L Normal 135-145 [facility] Comment on above: Performed By: #### 2 114633 #### [facility] [address] [place] [address] Urea nitrogen [Mass/Vol] 13 mg/dL Normal 5-21 [facility] Comment on above: Performed By: #### 2 811237 #### [facility] [address] [place] [address] Urea nitrogen/Creatinine [Mass ratio] 13 No Units Normal 10-20 [facility] Comment on above: Performed By: #### 2 306360 #### [facility] [address] [place] [address] ED Clinical Summaryon 2023 ED Clinical Summary ED Clinical Summary [place] [id number] ED Clinical Summary Person Information Name: MERVAT GRAYSON [place] Age: 73 Years : 1950 Sex: Male Language: Bulgarian PCP: Lorenzo MARIN DO Marital Status: Visit Id: Visit Reason: Hernia; Abdominal pain; DR EMERSON KAYE CLIENT SENT ER TO [facility]/ TROUBLE BREATHING/COLONOSCOPY YESTERDAY Speciality: Acuity: 3 Enc Type: Emergency Med Service: Emergency Arrival: 07/22/2024 16:54:04 Discharge: 07/22/2024 22:08:49 LOS: 000 05:14 Checkin: 07/22/2024 16:54:04 Checkout: 07/22/2024 22:08:49 Dispo Type: Undefined HC Fac EVENTS: Event Name Event Status Request Date/Time Start Date/Time Complete Date/Time Arrive Complete 07/22/2024 16:54:04 07/22/2024 16:54:04 07/22/2024 16:54:04 Document Home Meds Request 07/22/2024 16:54:04 Triage Complete 07/22/2024 16:54:04 07/22/2024 17:06:00 07/22/2024 17:06:00 Bed Assign Complete 07/22/2024 16:59:58 07/22/2024 16:59:58 07/22/2024 16:59:58 Dr Exam Complete 07/22/2024 16:59:58 07/22/2024 17:01:03 07/22/2024 17:01:03 RN Exam Complete 07/22/2024 16:59:58 07/22/2024 17:58:57 07/22/2024 17:58:57 Registration Complete 07/22/2024 17:00:39 07/22/2024 17:00:39 07/22/2024 17:00:39 Reg Complete Request 07/22/2024 17:00:39 Reg Bed Request Complete 07/22/2024 17:00:39 07/22/2024 17:00:39 07/22/2024 17:00:39 Registration Start 07/22/2024 17:01:03 07/22/2024 17:06:06 Dr Exam Complete 07/22/2024 17:12:52 07/22/2024 17:12:52 07/22/2024 17:12:52 Pending Labs Request 07/22/2024 17:12:55 Lab Complete 07/22/2024 17:12:55 07/22/2024 18:39:11 CT Complete 07/22/2024 17:12:55 07/22/2024 18:54:03 07/22/2024 19:09:57 Pending Labs Complete 07/22/2024 18:05:58 07/22/2024 18:05:58 07/22/2024 18:39:11 Lab Complete 07/22/2024 18:05:58 07/22/2024 18:05:58 07/22/2024 18:39:11 Meds Admin Complete 07/22/2024 18:55:09 07/22/2024 19:21:48 Dr Exam Complete 07/22/2024 19:12:00 07/22/2024 19:12:00 07/22/2024 19:12:00 Pending Labs Complete 07/22/2024 19:21:38 07/22/2024 19:21:38 07/22/2024 19:21:39 Meds Admin Complete 07/22/2024 19:42:54 07/22/2024 19:57:23 Meds Admin Complete 07/22/2024 20:02:35 07/22/2024 20:58:17 Pending Labs Collected 07/22/2024 20:02:35 Lab Collected 07/22/2024 20:02:36 Patient Care Request 07/22/2024 20:52:49 Transfer Complete 07/22/2024 20:52:49 07/22/2024 22:09:19 07/22/2024 22:09:19 Discharge Complete 07/22/2024 22:09:19 07/22/2024 22:09:19 07/22/2024 22:09:19 ADDRESS: [address] [place] [id number] PHYS DOC NOTES: MEDICAL INFORMATION: Prescriptions Given: Medications to Continue with No Changes Other Medications ascorbic acid (Vitamin C) 1,000 Milligram By Mouth every day. ascorbic acid/chondroitin/glucos a/angelo (Glucosamine Chondroitin) 1500mg/1200mg By Mouth every day. carvedilol (carvedilol 6.25 mg Tab) 1 Tablets By Mouth 2 times a day. Refills: 1. finasteride (finasteride 5 mg Tab) 1 Tablets By Mouth every day for 90 Days. Refills: 3. predniSONE (predniSONE 5 mg Tab) take 1 tablet by mouth daily as directed START AFTER TAPER. rivaroxaban (Xarelto 15 mg oral tablet) 1 Tablets By Mouth. sildenafil (sildenafil 100 mg Tab) 1 Tablets By Mouth As Directed as needed erectile dysfunction. 1 hour before sexual activity. Refills: 3. tamsulosin (Flomax 0.4 mg Cap) 1 Capsules By Mouth 2 times a day. Refills: 3. valsartan (valsartan 80 mg Tab) 1 Tablets By Mouth every day. Refills: 3. PATIENT EDUCATION INFORMATION: Instructions: Follow up: DIAGNOSIS: Pneumoperitoneum Normal [facility] ED Note-Physicianon 07-22-20 ED Note-Physician ED Note-Physician Patient is signed out to me by the outgoing provider. Patient is having abdominal pain after having a colonoscopy yesterday. At the time of signout CT of abdomen pelvis is pending. Received a call from teleradiology and the CT does demonstrate pneumoperitoneum concerning for bowel perforation. No precise location of perforation. I called and spoke with Dr Melendez who is brush fabrication supervisor for surgery and she agreed to come evaluate the patient. After her evaluation she was able to speak with Dr Norman at [facility] who follows with the patient for colorectal surgery. He recommended the patient be transferred ED to ED and that he would accept the patient. ED diagnosis: Pneumoperitoneum Normal [facility] Comment on above: Result Comment: Elec tronically Signed By: Shamir Donis DO\.br\Date and Time Signed: 07/22/24 20:56 EDT ED Note-Physician ED Note-Physician Basic Information Time Seen: Celeste Ruiz PA-C 07/22/2024 17:01 Chief Complaint patient c/o abdominal pain that started yesterday after colonoscopy at [facility]. states that pain is at umbilical hernia- protruding more than normal with abdominal distention History of Present Illness Patient is a 73-year-old male with complicated PMH that includes HTN, RA, colorectal cancer, nonischemic cardiomyopathy, remote PE (no longer on anticoagulation), BPH that presents to the ED with at the referral of colorectal surgeon for evaluation of abdominal pain. Patient states that he had colonoscopy completed yesterday. Since then he has had abdominal pain. He says he feels swollen. He localizes pain to the lower abdomen. Said he feels like his umbilical hernia is pushing out a lot more than it ever did in the past. He took Tylenol yesterday but has not taken any medication for pain today. He said pain is worse with deep breathing and certain movements. He has not had a bowel movement since undergoing his colon prep. He felt nauseous yesterday but is not feeling nauseous today. No vomiting. He said yesterday he had half of a burger and 6 tater tots. Today he had a turkey sandwich and 10 ounces of Metamucil. He denies any chest pain, palpitations, shortness of breath but does admit that last night he felt very cold but then during the night he felt sweaty and then he woke up feeling cold again. He has been voiding normally and is voided 5 times since the procedure. He denies any dysuria, hematuria, testicular pain or swelling. Review of Systems A 10 point review of systems is negative except as noted above. Medical and Surgical History: Reviewed and noted Social history: Lives at home Substance use: Denies Physical Exam Vitals & Measurements T: 36.9 ?C(Oral) HR: 74(Peripheral) RR: 20 BP: 136/92 SpO2: 94% HT: 188 cm WT: 111.6 kg BMI: 31.58 Appearance: Is not. Elevated BMI. Alert and awake. Speaking in complete sentences. Calm. Cooperative. Vital signs reviewed, hypertensive otherwise WNL Skin: Warm, dry, intact. Eyes: PERRL. Vision grossly intact. Respiratory: LCTA b/l with normal bilateral excursion. No wheezes, rhonchi, rales. Cardiovascular: Hypertensive. RRR, no murmurs. 2+ symmetrical radial and dorsalis pedis pulses. Normal cap refill. No LE edema. Chest wall: Normal chest wall appearance and motion. Abdomen/GI: Protuberant abdomen. Protruding umbilical hernia. Appears mildly distended. Soft and less tenderness in all quadrants. Normal bowel sounds. Neuro: Alert and awake, speech Clear, cranial nerves grossly intact. Extremities: No deformity noted on exam. Patient spontaneously moves all 4 extremities. Medical Decision Making Limitations to history: None Nursing Notes: Reviewed and utilized the nursing notes. Previous records reviewed: MDM: Patient is 73-year-old male who presents to the ED for evaluation of abdominal pain and distention following colonoscopy yesterday. On exam he has generalized tenderness in all quadrants. He appears minimally distended. Umbilical hernia is protruding and there is slight erythema around the hernia. He is afebrile. Lungs are clear. Pulses are symmetric. Will obtain routine labs, COVID swab and CT abdomen pelvis with IV contrast. Patient does not want any medication for pain at this time. Personally viewed labs. CBC shows nonspecific leukocytosis with WBCs 13.9. Hemoglobin 12.8. No labs for comparison. CMP shows mild hypokalemia with potassium 3.4 for which I will order 10 mEq of repletion. Otherwise electrolytes and renal function are normal. Bilirubin elevated at 2.3. Troponin normal. COVID-negative. At 1900, patient to be signed out to oncoming provider pending CT imaging and disposition. Assessment/Plan Ordered: potassium chloride, 20 mEq = 1 tab(s), Tab-ER, Oral, Once, Stop date 07/22/24 18:54:00 EDT, STAT, Start date 07/22/24 18:54:00 EDT, 07/22/24 18:54:00 EDT CBC w/ Auto Diff Comprehensive Metabolic Panel CT Abdomen/Pelvis w/ Contrast eGFR Rapid COVID Antigen ([facility] Troponin 0 Hr. UA with Cult Rflx Disposition Plan Discharge Prescription List Prescriptions No active prescription medications Follow-up No qualifying data available Attestation This visit was performed by both the physician and an APC. I performed all aspects of the MDM as documented. This report was transcribed using voice recognition software. Every effort was made to ensure accuracy, however, inadvertently computerized relocation director management be present. Problem List/Past Medical History Ongoing BMI 31.0-31.9,adult BPH with urinary obstruction Cervical spinal stenosis Erectile dysfunction Kidney stones Neck pain without injury Non-ischemic cardiomyopathy Prostate cancer screening RA - Rheumatoid arthritis Rectal cancer Tobacco non-user Historical No qualifying data Procedure/Surgical History Urodynamics (08/22/2023), Cystoscopy (06/04/2023), Sigmoi (more content not included)... [facility] Comment on above: Result Comment: Elec tronically Signed By: Celeste Ruiz PA-C\.br\Date and Time Signed: 07/22/24 18:56 EDT\.br\Electronically Co-Signed By: Yuridia Houser M.D.\.br\Date and Time Co-Signed: 07/22/24 19:10 EDT ED PROV NOTEon 07-22-2024 ED PROV NOTE HNO ID: [id number] Author: MERNA MARIN MD Service: Emergency Medicine Author Type: Physician Type: ED Provider Notes Filed: 07/23/2024 22:10 Note Text: ED Provider Note Patient Name: Mervat Grayson : 1950 SERVICE DATE: 07/22/24 History Patient presents with: Abdominal Pain: Pt transferred from [facility] for a pneumoperitoneum post colonoscopy. Colonoscopy was done yesterday at [place]. Pt endorsing abdominal pain. HPI TRANSFER -abdominal pain, patient underwent routine colonoscopy, went to outlying facility and found to have bowel perforation. With pneumoperitoneum, unsure of the source or site. Patient's had pain with nausea no chest pain no fever. No previous abdominal surgeries other than hernia repair most of his pains to the umbilical area and below. No associated chest pain. Has a history of pulmonary embolus, rectal cancer, cardiomyopathy, rheumatoid arthritis, chronic anticoagulation PAST MEDICAL HISTORY Diagnosis Date - Acute low back pain with possible spinal stenosis of less than six weeks' duration - Adenocarcinoma of rectum (HCC) - Arthritis - Bilateral renal cysts peripelvic - BPH with urinary obstruction - Cholelithiasis - History of kidney stones - Non-ischemic cardiomyopathy (HCC) - Pulmonary emboli (HCC) 2020 left lower lobe - RA (rheumatoid arthritis) (HCC) PAST SURGICAL HISTORY Procedure Laterality Date - COLONOSCOPY - HAMMERTOE REVISION, ONE TOE - HEMORRHOID SURGERY HX - HERNIA REPAIR HX - LITHOTRIPSY PROC UNILATERAL - REMV CATARACT EXTRACAP,INSERT LENS FAMILY HISTORY Problem Relation Age of Onset - Pancreatic Cancer Mother - Cancer Father bladder - Liver Cancer Sister - Cancer Brother Thyroid and Prostate - Colon Cancer No Family History Social History Tobacco Use - Smoking status: Never Passive exposure: Never - Smokeless tobacco: Never Vaping Use - Vaping status: Never Used Substance and Sexual Activity - Alcohol use: Yes Comment: rarely - Drug use: No - Sexual activity: Not on file ALLERGIES No Known Allergies Review of Systems Review of Systems: Constitutional: No fever Cardiovascular: No chest pain Respiratory: No dyspnea No cougH Gastrointestinal: abdominal pain nausea No vomiting : No back pain Musculoskeletal/Skin: No extremity pain Neurological: No headache Psychiatric: No confusion All other systems reviewed and are negative Physical Exam Vitals [07/22/24 2324] BP Pulse Temp Temp src Resp SpO2 Weight Height 166/91 89 37.7 ?C (99.8 ?F) Oral 18 (!) 94 % 112.5 kg (248 lb) -- Physical Exam Abdominal: Comments: Some distention, tenderness around the umbilicus there may be a umbilical hernia. He has diffuse pain lower. Some rebound. Vital signs and Nursing notes were reviewed Gen Appearance: Patient is alert Neck: Supple, Trach/Thyroid normal, no midline tenderness EENT: PERRLA, EOMI, Conjunctivae normal. no nystagmus, Skin: Warm and dry with no rash. Cardiovascular: Heart RRR, no gallops or rubs Respiratory: Lungs no wheezing, no rales, No use of accessory muscles Gastrointestinal: Abdomen see pic Genitourinary: Bladder not distended; Musculoskeletal: No tenderness to extremities, No back or hip pain. Neurological: Pt is alert and oriented , memory intact, no focal motor deficits noted ,NIH=[address] report and labs from outlying hospital were reviewed, showed pneumoperitoneum, no definite source. Labs were unremarkable minimal white count My interpretation labs showed a white count elevated 15.9 Critical Care I spent a total of 32 minutes of critical care time in the evaluation and management of this patient. This was necessary to treat or prevent deterioration of the following condition(s): Acute abdomen, pneumoperitoneum , which the patient had and/or has a high probability of suddenly developing. The patient received continuous monitoring, multiple reevaluation, blood work, IV meds, surgical consultation, transfer to operating room during the time that critical care was provided. Critical care time excludes separately billed procedures. Merna Marin MD Procedures ED Course / Clinical Impression Surgery came down evaluate the patient, they will take him from ED 2 OR Clinical Impressions as of 07/23/24 2210 Pneumoperitoneum Generalized abdominal pain Chronic anticoagulation Rectal cancer (HCC) Impression most likely bowel perforation secondary to recent procedure, less likely diverticulitis since it was not picked up on CAT scan, less likely appendicitis since it was not picked up on CAT scan, no evidence to support ischemic bowel MDM / Disposition / Plan MDM SIGNATURE: Merna Marin MD - MERNA MARIN 07/22/24 2354 MERNA MARIN 07/23/24 2210 Normal [facility] ED Patient Education Noteon 07-22-2024 ED Patient Education Note ED Patient Education Note Normal [facility] ED Patient Summaryon 024 ED Patient Summary ED Patient Summary [place] [id number] Patient Discharge Instructions Person Information Name: MERVAT GRAYSON Age: 73 Years Arrival Date: 07/22/2024 16:54:04 Discharge Diagnosis: Pneumoperitoneum Primary Care Physician: Lorenzo MARIN DO Provider Information Primary Provider: Yuridia Houser M.D. Advanced Drupal Web Developer:Celeste Ruiz PA-C The exam and treatment you received in the Emergency Department were for an urgent problem and are not intended as complete care. It is important that you follow up with a doctor, nurse practitioner, or physician?s assistant boiler operator for ongoing care. If your symptoms become worse or you do not improve as expected and you are unable to reach your usual health care provider, you should return to the Emergency Department. We are available 24 hours a day. MERVAT GRAYSON Tim has been given the following list of patient education materials, prescriptions and follow-up instructions: Follow-up Instructions: In the event that this physician does not participate in your insurance network, please consult with your insurance company to find a nearby participating provider. Patient Education Materials: A MESSAGE TO ALL PATIENTS REGARDING OPIOIDS PRESCRIPTION OPIOIDS: WHAT YOU NEED TO KNOW Prescription opioids can be used to help relieve zwobjwug-zc-cgjnoq pain and are often prescribed following a [...] from the Food and Drug Administration (www.fda.gov/Drugs/Reso Mosesu). ? Visit www.cdc.gov/drugoverdos e to learn about the risks of opioids abuse and overdose. ? If you believe you may be struggling with addiction, tell your health career technical education instructor and ask for guidance or call [facility] National Helpline at 1-960-286-GSYD. g Source: US Department of Health and Human Services/Center for Disease Control & Prevention [facility] Medication (more content not included)... Normal [facility] Extra Blueon 07-22-2024 Tube Collected Plasma Yes Invalid Interpretation Code [facility] Comment on above: Performed By: #### 1 [id number] #### [facility] [address] [place] [address] Fibrinogen PPP-mCncon 2023 Fibrinogen Coag (PPP) [Mass/Vol] 618 mg/dL High 200-400 [facility] Comment on above: Order Comment: Speci men Type: BLOOD SPECIMENOrdering Facility: [facility] Address: [address] [place] [address] Performed By: #### 6 00-7 #### [facility] CLIA [id number] [address] [place], [place] [address] [place] [address] [place] HEMATOLOGYOrdered By: SYSTEM SYSTEM on 07-22-2024 Basophils/100 WBC (Bld) 0.2 % Normal 0.0 - 2.0 % Remisol Heme Basophils/Leukocytes Auto (Bld) [Pure # fraction] 0.0 E9/L Normal 0.0 - 0.2 E9/L Remisol Heme Eosinophils (Bld) [#/Vol] 0.1 E9/L Normal 0.0 - 0.5 E9/L Remisol Heme Eosinophils/100 WBC (Bld) 0.5 % Normal 0.0 - 8.0 % Remisol Heme Erythrocyte distribution width (RBC) [Ratio] 15.9 % High 10.9 - 14.2 % Remisol Heme Hematocrit (Bld) [Volume fraction] 38.0 % Normal 37.7 - 49.0 % Remisol Heme Hemoglobin (Bld) [Mass/Vol] 12.8 g/dL Low 13.5 - 17.5 gm/dL Remisol Heme Lymphocytes (Bld) [#/Vol] 0.7 E9/L Low 1.0 - 4.0 E9/L Remisol Heme Lymphocytes/100 WBC (Bld) 4.9 % Low 14.0 - 50.0 % Remisol Heme MCH (RBC) [Entitic mass] 31.7 pg Normal 27.0 - 34.0 pg Remisol Heme MCHC (RBC) [Mass/Vol] 33.8 g/dL Normal 31.4 - 36.0 gm/dL Remisol Heme MCV (RBC) [Entitic vol] 94.0 fL Normal 80.0 - 100.0 fL Remisol Heme Monocytes (Bld) [#/Vol] 0.6 E9/L Normal 0.2 - 1.0 E9/L Remisol Heme Monocytes/100 WBC (Bld) 4.2 % Normal 4.0 - 14.0 % Remisol Heme Neutrophils (Bld) [#/Vol] 12.5 E9/L High 2.0 - 7.5 E9/L Remisol Heme Neutrophils/100 WBC (Bld) 90.2 % High 36.0 - 75.0 % Remisol Heme Platelet 202.0 E9/L Normal 150.0 - 500.0 E9/L Remisol Heme Platelet mean volume (Bld) [Entitic vol] 9.1 fL Normal 6.4 - 10.8 fL Remisol Heme RBC (Bld) [#/Vol] 4.0 E12/L Low 4.3 - 5.9 E12/L Remisol Heme WBC corrected for nucl RBC Auto (Bld) [#/Vol] 13.9 E9/L High 4.0 - 11.0 E9/L Remisol Heme Lactic Acidon 07-22-2024 Lactic Acid Lvl 0.8 mmol/L Normal 0.5-2.2 [facility] Comment on above: Performed By: #### 2 [id number] #### [facility] [address] [place] [address] MICRO OTHER TESTSOrdered By: Nida Ca on 07-22-2024 Rapid COV Int NEG Ctl Pass (07/22/24 6:03 PM) Normal [facility] Man Sero Rapid COV Int POS Ctl Pass (07/22/24 6:03 PM) Normal [facility] Sero SARS-CoV+SARS-CoV-2 (COVID-19) Ag IA.rapid Ql (Resp) Not Detected 2 (07/22/24 6:03 PM) Normal Not Detected [facility] Comment on above: Interpretive Data: Kadie diop Luminal Veritor System for Rapid Detection of SARS-CoV-2 is a chromatographic digital immunoassay intended for the direct and qualitative detection of SARS-CoV-2 nucleocapsid antigens in nasal swabs from individuals who are suspected of COVID-19 by their healthcare provider within the first five days of the onset of symptoms. Negative results should be treated as presumptive, do not rule out SARS-CoV-2 infection and should not be used as the sole basis for treatment or patient management decisions, including infection control decisions. Negative results should be considered in the context of a patient s recent exposures, history and the presence of clinical signs and symptoms consistent with COVID-19, and confirmed with a molecular assay, if necessary, for patient management. For in vitro diagnostic use. In the [place], only for use under an Emergency Use Authorization. In the [place], this test has not been FDA cleared or approved; this test has been authorized by FDA under an EUA for use by authorized laboratories; use by laboratories certified under the CLIA, 42 U.S.C. 263a, that meet requirements to perform moderate, high, or waived complexity tests and at the Point of Care (POC), i.e., in patient care settings operating under a CLIA Certificate of Waiver, Certificate of Compliance, or Certificate of Accreditation. This test has been authorized only for the detection of proteins from SARS-CoV-2, not for any other viruses or pathogens; and, in the [place], this test is only authorized for the duration of the declaration that circumstances exist justifying the authorization of emergency use of in vitro diagnostics for detection and/or diagnosis of the virus that causes COVID-19 under Section 564(b)(1) of the Act, 21 U.S.C. 360bbb-3(b)(1), unless the authorization is terminated or revoked sooner. Magnesium Ruil-Ru 07-22 Magnesium [Mass/Vol] 1.8 mg/dL Normal 1.7-2.3 [facility] Comment on above: Order Comment: Nazario brooks Type: BLOOD SPECIMEN [facility] Address: [address] [place] [address] Performed By: #### 3 4528-0, 85485-1 #### [facility] CLIA [id number] [place] [address] [place] PT panel Coag (PPP)on 2023 INR Coag (PPP) [Relative time] 1.3 {INR} Normal 0.9-1.3 [facility] Comment on above: Order Comment: Nazario brooks Type: BLOOD SPECIMENOrdering Facility: [facility] Address: [address] [place] [address] Result Comment: Myrna min K Antagonist (VKA) Therapeutic Range: INR 2 to 3 (Target INR of 2.5) Note: For patients treated with VKA drugs, such as warfarin, the [employer] 2012 Guideline recommends a therapeutic INR range of 2 to 3 (target INR of 2.5). This recommendation includes high-risk patients with antiphospholipid syndrome with previous arterial or venous thromboembolism, current-generation mechanical or bioprosthetic aortic heart valve replacement. Note: Patients with mechanical aortic valve replacement and additional risk factors for thromboembolic events (atrial fibrillation, previous thromboembolism, LV dysfunction, hypercoagulable conditions) or an older generation mechanical AVR (i.e., ball in-Cage) or any mechanical MVR should have a INR therapeutic range of 2.5 to 3.5 (target INR of 3). Dmitriy ONEILL, et al. Chest 2012, 141:7S-47S Jelena RA, et al. JACC 2017, 70: 252-289 Performed By: #### 6 00-7 #### [facility] CLIA [id number] [address] [place] [address] [id number] [place] [address] [place] PT Coag (PPP) [Time] 14.5 s High 9.7-13.0 [facility] Comment on above: Order Comment: Speci men Type: BLOOD SPECIMENOrdering Facility: [facility] Address: [address] [place] [address] Performed By: #### 6 00-7 #### [facility] CLIA [id number] [address] [facility] [address] [place] Phosphate SerPl-mCncon 07-22 Phosphate [Mass/Vol] 2.5 mg/dL Low 2.7-4.8 [facility] Comment on above: Order Comment: Speci men Type: BLOOD SPECIMEN [facility] Address: [address] [place] [address] Performed By: #### 3 4528-0, 62898-8 #### [facility] CLIA [id number] [address] [place] [address] [place] Rapid COVID Antigen ([facility]on 07-22-2024 Rapid COV Int NEG Ctl Pass Normal [facility] Comment on above: Performed By: #### 2 [id number] #### [facility] [address] [place] [address] Rapid COV Int POS Ctl Pass Normal [facility] Comment on above: Performed By: #### 2 [id number] #### [facility] [address] [place] [address] SARS-CoV+SARS-CoV-2 (COVID-19) Ag IA.rapid Ql (Resp) Not detected Normal Not Detected [facility] Comment on above: Result Comment: The BD Veritor? System for Rapid Detection of SARS-CoV-2 is a chromatographic digital immunoassay intended for the direct and qualitative detection of SARS-CoV-2 nucleocapsid antigens in nasal swabs from individuals who are suspected of COVID-19 by their healthcare provider within the first five days of the onset of symptoms. Negative results should be treated as presumptive, do not rule out SARS-CoV-2 infection and should not be used as the sole basis for treatment or patient management decisions, including infection control decisions. Negative results should be considered in the context of a patient?s recent exposures, history and the presence of clinical signs and symptoms consistent with COVID-19, and confirmed with a molecular assay, if necessary, for patient management. For in vitro diagnostic use. In the [place], only for use under an Emergency Use Authorization. In the [place], this test has not been FDA cleared or approved; this test has been authorized by FDA under an EUA for use by authorized laboratories; use by laboratories certified under the CLIA, 42 U.S.C. ?263a, that meet requirements to perform moderate, high, or waived complexity tests and at the Point of Care (POC), i.e., in patient care settings operating under a CLIA Certificate of Waiver, Certificate of Compliance, or Certificate of Accreditation. This test has been authorized only for the detection of proteins from SARS-CoV-2, not for any other viruses or pathogens; and, in the [place], this test is only authorized for the duration of the declaration that circumstances exist justifying the authorization of emergency use of in vitro diagnostics for detection and/or diagnosis of the virus that causes COVID-19 under Section 564(b)(1) of the Act, 21 U.S.C. ? 360bbb-3(b)(1), unless the authorization is terminated or revoked sooner. Performed By: #### 2 [id number] #### [facility] [address] [place] [address] TYPE + SCREENon 07-22-2024 ABO O [facility] Comment on above: Order Comment: Speci men Type: BLOOD SPECIMENOrdering Facility: [facility] Address: [address] [place] [address] Performed By: #### T SCR ####[facility] [id number] [place] [id number] [facility] [place] Rh Nom (Bld) Positive [facility] Comment on above: Order Comment: Speci men Type: BLOOD SPECIMENOrdering Facility: [facility] Address: [address] [place] [address] Performed By: #### T SCR ####[facility] [id number] [address] [place] TYPE AND SCREEN EXPIRATION 07/25/2024 23:59 Normal [facility] Comment on above: Order Comment: Speci men Type: BLOOD SPECIMENOrdering Facility: [facility] Address: [address] [place] [address] Performed By: #### T SCR ####[facility] [id number] [place] [id number] [place] Troponin 0 Hr.on 07-22-2024 Troponin HS 10.10 pg/mL Low 15.90-38.40 [facility] Comment on above: Result Comment: The 95% CI (Confidence Interval) PPV (Positive Predictive Value) for myocardial infarction in females is 38 pg/mL, in males 51 pg/mL. The results should be used in conjunction with clinical conditions of myocardial infarction. (Access High Sensitivity Troponin I Instructions For Use, Korina [place], May 2018) Performed By: #### 1 [id number] #### [facility] [address] [place] [address] aPTT PPPon 07-22-2024 aPTT Coag (PPP) [Time] 40.1 s High 23.0-32.4 [facility] Comment on above: Order Comment: Speci men Type: BLOOD SPECIMENOrdering Facility: [facility] Address: [address] [place] [address] Performed By: #### 6 00-7 #### [facility] CLIA [id number] [address] [place] [address] [place] eGFRon 07-22-2024 eGFR 80 mL/min/1.73 m2 Normal >=59 [facility] Comment on above: Performed By: #### 1 [id number] #### [facility] [address] [place] [address] ANES POSTPROC EVALon 024 ANES POSTPROC EVAL HNO ID: [id number] Author: BRAD VILLEDA MD Service: Anesthesiology Author Type: Physician Type: Anesthesia Postprocedure Evaluation Filed: 07/21/2024 10:50 Note Text: POST ANESTHESIA EVALUATION NOTE : 1950 Procedure Summary Date: 07/21/24 Room / Location: Procedures Anesthesia Start: 920 Anesthesia Stop: 999 Procedure: COLONOSCOPY SCREENING Diagnosis: Encounter for follow-up surveillance of rectal cancer (High risk colon cancer surveillance: Personal history of rectal cancer) Scheduled Providers: Deborah Norman MD; Brad Villeda MD; Carmelina Fung AA Responsible Provider: Brad Villeda MD Anesthesia Type: MAC ASA Status: 2 Anesthesia Type: MAC Last Vitals Vitals Value Taken Time BP 127/86 07/21/24 1020 Temp 36.1 ?C (97 ?F) 07/21/24 1000 HR SpO2 68 07/21/24 1020 Resp 16 07/21/24 1020 SpO2 94 % 07/21/24 1020 Vitals shown include unfiled device data. Post Anesthesia Patient Status Patient Evaluation: PACU. PACU/ICU Patient Condition: stable. Anticipated Disposition: phase 2 then home. Neurological Status: aware and responsive. Pulmonary Status: breathing comfortably on room air Airway Control: returned to baseline unsupported. Cardiovascular Status: stable. Pain Management: satisfactory to patient Postoperative Hydration: acceptable. Intraoperative Events: no significant anesthesia events Recommendation: continue current plan of care. Anesthesia Observations No Documentation SIGNATURE: Brad Villeda MD PATIENT NAME: Mervat Grayson DATE: July 21, 2024 TIME: 10:50 AM CSN: [id number] [facility] ANES PRE-OPon 07-21-2024 ANES PRE-OP HNO ID: [id number] Author: BRAD VILLEDA MD Service: Anesthesiology Author Type: Physician Type: Anesthesia Preprocedure Evaluation Filed: 07/21/2024 09:04 Note Text: ANESTHESIOLOGY DAY OF SURGERY NOTE : 1950 Procedure Information Date/Time: 07/21/24929 Scheduled providers: Deborah Norman MD; Brad Villeda MD; Carmelina Fung AA Procedure: COLONOSCOPY SCREENING Location: Procedures Estimated body mass index is 32.73 kg/m? as calculated from the following: Height as of 03/12/24: 185.4 cm (6' 0.99 ). Weight as of this encounter: 112.5 kg (248 lb). Most recent hematocrit and potassium results: Hematocrit 40.2 02/11/2024 Potassium 4.1 02/11/2024 Relevant Problems Other (+) RA (rheumatoid arthritis) (HCC) I - PHYSICAL EVALUATION AIRWAY Patient intubated: No. Tracheostomy tube not present Mallampati: II. TM distance: >3 FB. Neck ROM: full. Mouth opening: adequate. Short neck: no. Thick neck: no Mac present: no DENTAL Normal dental observations. Dental findings: teeth intact. Additional exam findings: no II - ANESTHESIA PLAN ASA Score: 2 Anesthetic Plan: MAC NPO Status: adequate Beta Taina Monitoring Plan Monitoring plan: Standard ASA. Post Procedure Analgesic Plan Postoperative analgesic plan: parenteral or oral opioids. Informed Consent Anesthetic risks, benefits, alternatives, personnel and consent discussed: yes. Patient / Responsible Constitution Party agrees to proceed: yes Patient / Surrogate agrees to blood products: blood products not planned Significant changes in the patient condition since the History and Physical, not otherwise documented in primary service progress note: no. Potential Anesthesia issues that may suggest increased risk of complications or contraindication to planned procedure: none. Vitals Value Taken Time BP 154/91 07/21/24 0900 Pulse Resp 18 07/21/24899 Temp 36.1 ?C (97 ?F) 07/21/24899 SpO2 98 % 07/21/24899 Outpatient Medications as of 07/21/2024 Medication Sig XARELTO 20 mg tablet TAKE ONE TABLET BY MOUTH DAILY WITH DINNER calcium carbonate (CALCIUM 600 ORAL) Take 1 tablet by mouth once daily. glucosamine/chondr perez A sod (GLUCOSAMINE-CHONDROITI N) 1,500-1,200 mg/30 mL liqd Take by mouth once daily. predniSONE (DELTASONE) 5 mg tablet Take 5 mg by mouth once daily. valsartan (DIOVAN) 80 mg tablet Take 80 mg by mouth once daily. carvedilol (COREG) 6.25 mg tablet Take 6.25 mg by mouth twice daily with meals. tamsulosin ER (FLOMAX) 0.4 mg cap Take 0.4 mg by mouth twice daily. Ascorbic Acid 100 mg tablet Take 100 mg by mouth twice daily. Facility-Administered Medications as of 07/21/2024 Medication Dose Route Frequency lidocaine (PF) 10 mg/mL (1 %) 1-2 mg injection (XYLOCAINE) 0.1-0.2 mL INTRADERMAL PRN lactated ringers iv infusion 35 mL/hr INTRAVENOUS CONTINUOUS I have interviewed and examined the patient. I have reviewed the medical record and/or the pre-anesthesia evaluation, pertinent labs, and test results. This contains updated information obtained within 48 hours of Surgery/Procedure. SIGNATURE: Brad Villeda MD PATIENT NAME: Mervat Grayson DATE: July 21, 2024 TIME: 9:04 AM CSN: [id number] Normal [facility] Colonoscopyon 07-21-2024 Colonoscopy [facility] Gastrointestinal Endoscopy Patient Name: Mervat Grayson Procedure Date: 07/21/2024 9:18 AM Date of : 1950 Admit Type: Outpatient Age: 73 Room: [place] [address] Gender: Male Note Status: Finalized Attending MD: Deborah Norman MD, [id number] Procedure: Colonoscopy Indications: High risk colon cancer surveillance: Personal history of rectal cancer Providers: Deborah Norman MD Patient Profile: This is a 73 year old male. Refer to note in patient chart for documentation of history and physical. Last Colonoscopy: 1 year ago. Referring Physician: Deborah Norman MD (Referring MD) [...] and oxygen saturations were monitored continuously. The 9292 Adult was introduced through the anus and advanced to the cecum, identified by appendiceal orifice and ileocecal valve. The colonoscopy was performed without difficulty. The patient tolerated the procedure well. The quality of the bowel preparation was good. The ileocecal valve, the appendiceal orifice and the rectum were photographed. Scope Withdrawal Time: 0 hours 14 minutes 43 seconds Moderate Sedation: MAC anesthesia was administered by the anesthesia team. Total Procedure Duration: 0 hours 28 minutes 36 seconds Findings: The perianal and digital rectal examinations were normal. A scar was found in the distal rectum. The scar tissue was healthy in appearance. The exam was otherwise without abnormality on direct and retroflexion views. Impression: - Scar in the distal rectum. - The examination was otherwise normal on direct and retroflexion views. - No specimens collected. Recommendation: - Discharge patient to home. - Resume previous diet. - Continue present medications. - Repeat colonoscopy in 3 years for surveillance. - Repeat flexible sigmoidoscopy in 4 months - Patient has a contact number available for emergencies. The signs and symptoms of potential delayed complications were discussed with the patient. Return to normal activities tomorrow. Written discharge instructions were provided to the patient. Procedure Code(s): --- Professional --- 12623, Colonoscopy, flexible; diagnostic, including collection of specimen(s) by brushing or washing, when performed (separate procedure) CPT copyright 2020 [employer]. All rights reserved. The codes documented in this report are preliminary and upon emulsion coater review may be revised to meet current compliance requirements. Attending Participation: I was present and participated during the entire procedure, including non-tripp portions. Scope In: 9:26:26 AM Scope Out: 9:55:02 AM MD Deborah Harper MD 07/21/2024 10:01:19 AM This report has been signed electronically by Deborah Norman MD Number of Addenda: 0 Note Initiated On: 07/21/2024 9:18 AM Estimated Blood Loss: Estimated blood loss: none. Normal [facility] Colonoscopy Study observatio non 07-21-2024 [facility] Gastrointestinal Endoscopy Patient Name: Mervat Grayson Procedure Date: 07/21/2024 9:18 AM Date of : 1950 Admit Type: Outpatient Age: 73 Room: [place] [address] Gender: Male Note Status: Finalized Attending MD: Deborah Norman MD, [id number] Procedure: Colonoscopy Indications: High risk colon cancer surveillance: Personal history of rectal cancer Providers: Deborah Norman MD Patient Profile: This is a 73 year old male. Refer to note in patient chart for documentation of history and physical. Last Colonoscopy: 1 year ago. Referring Physician: Deborah Norman MD (Referring MD) [...] and oxygen saturations were monitored continuously. The 9292 Adult was introduced through the anus and advanced to the cecum, identified by appendiceal orifice and ileocecal valve. The colonoscopy was performed without difficulty. The patient tolerated the procedure well. The quality of the bowel preparation was good. The ileocecal valve, the appendiceal orifice and the rectum were photographed. Scope Withdrawal Time: 0 hours 14 minutes 43 seconds Moderate Sedation: MAC anesthesia was administered by the anesthesia team. Total Procedure Duration: 0 hours 28 minutes 36 seconds Findings: The perianal and digital rectal examinations were normal. A scar was found in the distal rectum. The scar tissue was healthy in appearance. The exam was otherwise without abnormality on direct and retroflexion views. Impression: - Scar in the distal rectum. - The examination was otherwise normal on direct and retroflexion views. - No specimens collected. Recommendation: - Discharge patient to home. - Resume previous diet. - Continue present medications. - Repeat colonoscopy in 3 years for surveillance. - Repeat flexible sigmoidoscopy in 4 months - Patient has a contact number available for emergencies. The signs and symptoms of potential delayed complications were discussed with the patient. Return to normal activities tomorrow. Written discharge instructions were provided to the patient. Procedure Code(s): --- Professional --- 75280, Colonoscopy, fl (more content not included)... PROVATION [facility] Radiology Study observation (narrative) [facility] No Panel Informationon 07-14 Type of biopsy: tangential Informed consent: discussed and consent obtained Informed consent comment: The risks and benefits of the biopsy were discussed. Risks include but are not limited to bleeding, infection, scarring, pain, and nerve damage. An opportunity to ask questions prior to the procedure was permitted and all questions were answered. Patient was prepped and draped in usual sterile fashion: area cleansed with alcohol. Anesthesia: the lesion was anesthetized in a standard fashion Anesthetic: 1% lidocaine w/ epinephrine 1-100,000 buffered w/ 8.4% NaHCO3 Instrument used: DermaBlade Hemostasis achieved with: electrodesiccation Outcome: patient tolerated procedure well Outcome comment: The specimen was placed in a prelabeled formalin container to be sent for pathology Post-procedure details: sterile dressing applied and wound care instructions given Post-procedure details comment: Emphasized need to contact clinic for any signs of infection, uncontrollable bleeding, or complications. Dressing type: bandage Additional details: Photo taken yes Amount of lidocaine used: 0.5 cc [facility] No Panel Informationon 07-08 JANINE Goss 07/08/2024 9:59 AM Cast / Splint / Fx Date/Time: 07/08/2024 9:47 AM Performed by: JANINE Goss Authorized by: JANINE Goss Consent given by: patient Site marked: site marked Injury Location details: right ankle Pre-procedure assessment neurovascularly intact Range of motion: normal Procedure Manipulation performed? no manipulation performed Immobilization: splint and brace Post-procedure assessment neurovascularly intact Range of motion: unchanged Patient tolerance: patient tolerated the procedure well with no immediate complications [facility] XR SHOULDER LEFT (MIN 2 VIEW S)on 03-27-2024 XR SHOULDER LEFT (MIN 2 VIEWS) EXAMINATION: THREE XRAY VIEWS OF THE LEFT SHOULDER 03/27/2024 10:08 am COMPARISON: None. HISTORY: ORDERING SYSTEM PROVIDED HISTORY: Acute pain of left shoulder, Accidental fall, initial encounter TECHNOLOGIST PROVIDED HISTORY: Reason for exam:->left shoulder pain, fall 2 days ago What reading provider will be dictating this exam?->CRC FINDINGS: Glenohumeral joint is normally aligned. No evidence of acute fracture or dislocation. No abnormal periarticular calcifications. The AC joint is unremarkable in appearance. Visualized lung is unremarkable. IMPRESSION: No acute abnormality. Interpreted by: Deborah Valdovinos MD Signed by: Deborah Valdovinos MD 03/27/24 Final result Normal [facility] Flexible sigmoidoscopy study on 02-25-2024 [facility] Gastrointestinal Endoscopy Patient Name: Mervat Grayson Procedure Date: 02/25/2024 11:24 AM Date of : 1950 Admit Type: Outpatient Age: 73 Room: [place] [address] Gender: Male Note Status: Finalized Attending MD: Deborah Norman MD, Procedure: Flexible Sigmoidoscopy Indications: High risk colon cancer surveillance: Personal history of rectal cancer Providers: Deborah Norman MD Patient Profile: Last Colonoscopy: within the past year. Referring Physician: Deborah Norman MD (Referring MD) [...] scope was passed under direct vision. The was introduced through the anus and advanced to the rectosigmoid junction. The flexible sigmoidoscopy was accomplished without difficulty. The patient tolerated the procedure well. The quality of the bowel preparation was fair. Moderate Sedation: MAC anesthesia was administered by the anesthesia team. Total Procedure Duration: 0 hours 4 minutes 40 seconds Findings: The perianal and digital rectal examinations were normal. A 20 mm scar was found in the distal rectum. The scar tissue was healthy in appearance. The exam was otherwise without abnormality. Impression: - Preparation of the colon was fair. - Scar in the distal rectum. - The examination was otherwise normal. - No specimens collected. Recommendation: - Discharge patient to home. - Resume previous diet. - Full colonoscopy in 4-5 months Procedure Code(s): --- Professional --- 96516, 54, Sigmoidoscopy, flexible; diagnostic, including collection of specimen(s) by brushing or washing, when performed (separate procedure) CPT copyright 2020 [employer]. All rights reserved. The codes documented in this report are preliminary and upon emulsion coater review may be revised to meet current compliance requirements. Attending Participation: I was present and participated during the entire procedure, including non-tripp portions. Scope In: 11:30:22 AM Scope Out: 11:35:02 AM MD Deborah Harper MD 02/25/2024 11:38:23 AM This report has been signed electronically by Deborah Norman MD Number of Addenda: 0 Note Initiated On: 02/25/2024 11:24 AM Estimated Blood Loss: Estimated blood loss: none. PROVATION [facility] Radiology Study observation (narrative) [facility] CHEMISTRYOrdered By: SYSTEM SYSTEM on 02-14-2024 Prostate specific Ag [Mass/Vol] 0.1 ng/mL Normal 0.1 - 3.5 ng/mL [facility]isol [facility] Comment on above: Interpretive Data: T he concentration of PSA determined by different manufacturers can vary due to differences in assay methods and reagent specificity. Values obtained from different assay methods cannot be used interchangeably. The methodology used for this result was chemiluminescence using [employer]'s Access Hybr[employer]ch PSA reagent. CBC W Auto Differential pane l (Bld)on 02-11-2024 Basophils (Bld) [#/Vol] 0.05 10*3/uL NINF [facility] Basophils/100 WBC (Bld) 0.8 % [facility] Differential cell count method Nom (Bld) Auto [facility] Eosinophils (Bld) [#/Vol] 0.20 10*3/uL [facility] Eosinophils/100 WBC (Bld) 3.3 % [facility] Erythrocyte distribution width (RBC) [Ratio] 15.8 % High 11.5 - 15.0 % [facility] Hematocrit (Bld) [Volume fraction] 40.2 % 39.0 - 51.0 % [facility] Hemoglobin (Bld) [Mass/Vol] 13.1 g/dL 13.0 - 17.0 g/dL [facility] Immature granulocytes (Bld) [#/Vol] 0.07 10*3/uL [facility] Immature granulocytes/100 WBC (Bld) 1.1 % [facility] Interpretation and review of laboratory results Abnormal [facility] Lymphocytes (Bld) [#/Vol] 1.05 10*3/uL [facility] Lymphocytes/100 WBC (Bld) 17.1 % [facility] MCH (RBC) [Entitic mass] 31.5 pg 26.0 - 34.0 pg [facility] MCHC (RBC) [Mass/Vol] 32.6 g/dL 30.5 - 36.0 g/dL [facility] MCV (RBC) [Entitic vol] 96.6 fL 80.0 - 100.0 fL [facility] Monocytes (Bld) [#/Vol] 0.64 10*3/uL [facility] Monocytes/100 WBC (Bld) 10.4 % [facility] Neutrophils (Bld) [#/Vol] 4.14 10*3/uL [facility] Neutrophils/100 WBC (Bld) 67.3 % [facility] Nucleated RBC (Bld) [#/Vol] [facility] Nucleated RBC/100 WBC (Bld) [Ratio] 0.0 % /100 WBC [facility] Platelet mean volume (Bld) [Entitic vol] 9.9 fL 9.0 - 12.7 fL [facility] Platelets (Bld) [#/Vol] 226 10*3/uL [facility] RBC (Bld) [#/Vol] 4.16 10*6/uL Low 4.20 - 6.0 0 m/uL [facility] WBC (Bld) [#/Vol] 6.15 10*3/uL [facility] Comprehensive metabolic 2000 panelOrdered By: Ti Dooley on 02-11-2024 Albumin [Mass/Vol] 3.6 g/dL Low 3.9 - 4.9 g/dL [facility] ALP [Catalytic activity/Vol] 90 U/L 38 - 113 U/L [facility] ALT [Catalytic activity/Vol] 10 U/L 10 - 54 U/L [facility] Anion gap [Moles/Vol] 10 mmol/L 9 - 18 mmol/L [facility] AST [Catalytic activity/Vol] 14 U/L 14 - 40 U/L [facility] Bilirubin [Mass/Vol] 0.4 mg/dL 0.2 - 1 .3 mg/dL [facility] Calcium [Mass/Vol] 9.4 mg/dL 8.5 - 10. 2 mg/dL [facility] Chloride [Moles/Vol] 108 mmol/L High 97 - 10 5 mmol/L [facility] CO2 [Moles/Vol] 24 mmol/L 22 - 30 mmol/L [facility] Creatinine [Mass/Vol] 1.27 mg/dL High 0.73 - 1.22 mg/dL [facility] GFR/1.73 sq M.predicted among non-blacks MDRD (S/P/Bld) [Vol rate/Area] 60 mL/min/{1.73_m2} - PINF [facility] Comment on above: Estimated Glomerular Filtration Rate (eGFR) is calculated using the 2020 CKD-EPI creatinine equation. This equation utilizes serum creatinine, sex, and age as parameters. The creatinine assay has traceable calibration to isotope dilution-mass spectrometry. Refer to KDIGO guidelines for clinical interpretation. In patients with unstable renal function, e.g. those with acute kidney injury, the eGFR may not accurately reflect actual GFR. Glucose [Mass/Vol] 102 mg/dL High 74 - 99 mg/dL [facility] Comment on above: The [place] [employer] (ADA) provides guidance for cutoff values for fasting glucose and random glucose. The ADA defines fasting as no caloric intake for at least 8 hours. Fasting plasma glucose results between 100 to 125 mg/dL indicate increased risk for diabetes (prediabetes). Fasting plasma glucose results greater than or equal to 126 mg/dL meet the criteria for diagnosis of diabetes. In the absence of unequivocal hyperglycemia, results should be confirmed by repeat testing. In a patient with classic symptoms of hyperglycemia or hyperglycemic crisis, random plasma glucose results greater than or equal to 200 mg/dL meet the criteria for diagnosis of diabetes. Reference: Standards of Medical Care in Diabetes 2016, [place] [employer]. Diabetes Care. 2016.39(Suppl 1). Interpretation and review of laboratory results Abnormal [facility] Potassium [Moles/Vol] 4.1 mmol/L 3.7 - 5.1 mmol/L [facility] Protein [Mass/Vol] 5.9 g/dL Low 6.3 - 8.0 g/dL [facility] Sodium [Moles/Vol] 142 mmol/L 136 - 144 mmol/L [facility] Urea nitrogen [Mass/Vol] 17 mg/dL 9 - 24 mg/dL [facility] CEA BLDon 12-23-2023 Carcinoembryonic Ag [Mass/Vol] 1.9 ng/mL [facility] - 2.9 ng/mL [facility] Comment on above: Carcinoembryonic ant igen test is used as an aid in monitoring response to treatment or recurrence in patients with established colorectal, breast, lung, prostatic, pancreatic, and ovarian carcinomas. Clinical correlation is required. The Carcinoembryonic antigen test was performed using the [employer] DXI paramagnetic particle chemiluminescent immunoassay method. Results obtained with different assay methods or kits cannot be used interchangeably. Carcinoembryonic Ag [Mass/Vo l]on 12-23-2023 Interpretation and review of laboratory results Normal [facility] CBC W Auto Differential pane l (Bld)on 12-20-2023 Basophils (Bld) [#/Vol] 0.04 10*3/uL [facility] Basophils/100 WBC (Bld) 0.4 % [facility] Differential cell count method Nom (Bld) Auto [facility] Eosinophils (Bld) [#/Vol] 0.04 10*3/uL [facility] Eosinophils/100 WBC (Bld) 0.4 % [facility] Erythrocyte distribution width (RBC) [Ratio] 15.4 % High 11.5 - 15.0 % [facility] Hematocrit (Bld) [Volume fraction] 44.3 % 39.0 - 51.0 % [facility] Hemoglobin (Bld) [Mass/Vol] 14.5 g/dL 13.0 - 17.0 g/dL [facility] Immature granulocytes (Bld) [#/Vol] 0.07 10*3/[facility] Immature granulocytes/100 WBC (Bld) 0.8 % [facility] Interpretation and review of laboratory results Abnormal [facility] Lymphocytes (Bld) [#/Vol] 1.04 10*3/uL [facility] Lymphocytes/100 WBC (Bld) 11.6 % [facility] MCH (RBC) [Entitic mass] 31.0 pg 26.0 - 34.0 pg [facility] MCHC (RBC) [Mass/Vol] 32.7 g/dL 30.5 - 36.0 g/dL [facility] MCV (RBC) [Entitic vol] 94.9 fL 80.0 - 100.0 fL [facility] Monocytes (Bld) [#/Vol] 0.76 10*3/uL NINF [facility] Monocytes/100 WBC (Bld) 8.5 % [facility] Neutrophils (Bld) [#/Vol] 7.03 10*3/uL [facility] Neutrophils/100 WBC (Bld) 78.3 % [facility] Nucleated RBC (Bld) [#/Vol] NINF [facility] Nucleated RBC/100 WBC (Bld) [Ratio] 0.0 % /100 WBC [facility] Platelet mean volume (Bld) [Entitic vol] 10.1 fL 9.0 - 12.7 fL [facility] Platelets (Bld) [#/Vol] 214 10*3/uL [facility] RBC (Bld) [#/Vol] 4.67 10*6/uL 4.20 - 6.0 0 m/uL [facility] WBC (Bld) [#/Vol] 8.98 10*3/uL [facility] CT Abdomen and Pelvis [place] 12-20-2023 IMPRESSION: 1. No evidence of metastatic disease in the abdomen or pelvis. Transcribe Date/Time: Dec 20 2023 1:23P Dictated by: MERVAT LAUREN MD This examination was interpreted and the report reviewed and electronically signed by: MERVAT LAUREN MD on Dec 20 2023 1:33PM EST Thank you for allowing us to participate in the care of your patient. Should there be any questions regarding this interpretation, please call [phone]. If you are unable to reach us at the number above, please feel free to contact [facility] at [phone]. DIVISION OF RADIOLOGY * * *Final Report* * * DATE OF EXAM: Dec 20 2023 10:21AM [facility] 0530 - CT ABD/PEL W IVCON / PROCEDURE REASON: Malignant neoplasm of rectum (HCC) * * * * Physician Interpretation * * * * RESULT: EXAMINATION: CT ABDOMEN AND PELVIS WITH IV CONTRAST CLINICAL HISTORY: Malignant neoplasm of the rectum. TECHNIQUE: CT of the abdomen and pelvis was performed using standard technique, scanning from just above the dome of the diaphragm to the symphysis pubis. MQ: CTAP_3 Contrast: IV: 150 ml of Omnipaque 300 Oral: 500 ml of Omni 240 10-25ml diluted with water CT Radiation dose: Integrated Dose-length product (DLP) for this visit = 1515 mGy*cm. CT Dose Reduction Employed: mAs-kVp adjusted based on patient size-age COMPARISON: CT the abdomen pelvis from 06/20/2023 RESULT: Liver: No mass. Biliary: No bile duct dilation. Cholelithiasis with small stones in the neck of the gallbladder. Spleen: Multiple benign calcified splenic granuloma. No splenomegaly. Pancreas: No mass or duct dilation. Adrenals: Very minimal thickening along the anterior left adrenal gland which is unchanged and therefore likely benign. Kidneys: Mild bilateral renal cortical atrophy. Numerous bilateral parapelvic renal cysts. Nonobstructing renal calculi bilaterally. GI tract: No bowel obstruction. Moderate diverticulosis of the sigmoid colon. Lymph nodes: No abdominal or pelvic lymphadenopathy. Mesentery/Peritoneum: No ascites or mass. Pelvis: No mass, ascites or fluid collection. Bones/Soft Tissues: Degenerative changes. Old fractures of right pelvic bones. Small fat-containing periumbilical hernia. Lower thorax: A chest CT performed will be reported separately. Baggagemaster (topogram) images: No additional findings. DIVISION OF RADIOLOGY Provider, Devyn Hdz - 12/20/2023 * * *Final Report* * * DATE OF EXAM: Dec 20 2023 10:21AM [facility] 0530 - CT ABD/PEL W IVCON / PROCEDURE REASON: Malignant neoplasm of rectum (HCC) * * * * Physician Interpretation * * * * RESULT: EXAMINATION: CT ABDOMEN AND PELVIS WITH IV CONTRAST CLINICAL HISTORY: Malignant neoplasm of the rectum. TECHNIQUE: CT of the abdomen and pelvis was performed using standard technique, scanning from just above the dome of the diaphragm to the symphysis pubis. MQ: CTAP_3 Contrast: IV: 150 ml of Omnipaque 300 Oral: 500 ml of Omni 240 10-25ml diluted with water CT Radiation dose: Integrated Dose-length product (DLP) for this visit = 1515 mGy*cm. CT Dose Reduction Employed: mAs-kVp adjusted based on patient size-age COMPARISON: CT the abdomen pelvis from 06/20/2023 RESULT: Liver: No mass. Biliary: No bile duct dilation. Cholelithiasis with small stones in the neck of the gallbladder. Spleen: Multiple benign calcified splenic granuloma. No splenomegaly. Pancreas: No mass or duct dilation. Adrenals: Very minimal thickening along the anterior left adrenal gland which is unchanged and therefore likely benign. Kidneys: Mild bilateral renal cortical atrophy. Numerous bilateral parapelvic renal cysts. Nonobstructing renal calculi bilaterally. GI tract: No bowel obstruction. Moderate diverticulosis of the sigmoid colon. Lymph nodes: No abdominal or pelvic lymphadenopathy. Mesentery/Peritoneum: No ascites or mass. Pelvis: No mass, ascites or fluid collection. Bones/Soft Tissues: Degenerative changes. Old fractures of right pelvic bones. Small fat-containing periumbilical hernia. Lower thorax: A chest CT performed will be reported separately. Baggagemaster (topogram) images: No additional findings. IMPRESSION IMPRESSION: 1. No evidence of metastatic disease in the abdomen or pelvis. Transcribe Date/Time: Dec 20 2023 1:23P Dictated by: MERVAT LAUREN MD This examination was interpreted and the report reviewed and electronically signed by: MERVAT LAUREN MD on Dec 20 2023 1:33PM EST Thank you for allowing us to participate in the care of your patient. Should there be any questions regarding this interpretation, please call [phone]. If you are unable to reach us at the number above, please feel free to contact [facility] at [phone]. [facility] CT Abdomen and Pelvis W cont rast IVOrdered By: [facility] Provider on 12-20-[address] [facility] [address] Chest W contrast Ivelisse IMPRESSION: 1. Stable nonspecific subcentimeter pulmonary nodules as described above. There are also stable small nonspecific mediastinal lymph nodes and right hilar lymph node. Would advise continued close attention on follow-up/surveillance scans. Transcribe Date/Time: Dec 20 2023 1:35P Dictated by: MERVAT LAUREN MD This examination was interpreted and the report reviewed and electronically signed by: MERVAT LAUREN MD on Dec 20 2023 1:44PM EST Thank you for allowing us to participate in the care of your patient. Should there be any questions regarding this interpretation, please call [phone]. If you are unable to reach us at the number above, please feel free to contact [facility] at [phone]. DIVISION OF RADIOLOGY * * *Final Report* * * DATE OF EXAM: Dec 20 2023 10:21AM [facility] 0539 - CT CHEST W IVCON / PROCEDURE REASON: Malignant neoplasm of rectum (HCC) * * * * Physician Interpretation * * * * RESULT: EXAMINATION: CHEST CT WITH CONTRAST CLINICAL HISTORY: Malignant neoplasm of the rectum. Technique: Spiral CT acquisition of the chest from the thoracic inlet to the upper abdomen following IV contrast. MQ: CTCW_6 Contrast: 150 mL Omnipaque [address] Radiation dose: Integrated Dose-length product (DLP) for this visit = 1515 mGy*cm CT Dose Reduction Employed: mAs-kVp adjusted based on patient size-age Comparison: Chest CT with contrast from 06/20/2023 RESULT: Limitations: None. Lines, tubes, and devices: Right jugular venous Port-A-Cath with tip near superior cavoatrial junction. Lung parenchyma and airways: Pulmonary nodules are again noted on series 4. For example, there is a small 3 mm nodule in the posterior right upper lobe on slice 53 which appears relatively stable. 8 mm solid nodule on slice 68 of series 4 which appears relatively stable when compared to the prior exam 3 mm solid nodule in the lateral right upper lobe on slice 68 which appears relatively stable when compared to the prior exam Additional subcentimeter pulmonary nodules which appear relatively stable. Pleural space: No pleural effusion. No pleural thickening. Lower neck, lymph nodes, and mediastinum: No suspicious axillary lymphadenopathy. Stable mediastinal and right hilar lymph nodes which measure less than a centimeter in short axis diameter. Calcified subcarinal lymph node compatible with old granulomatous disease. Heart, pericardium, and thoracic vessels: No pericardial effusion. No significant coronary artery calcification. Bones and soft tissues: Partial visualization of anterior fusion hardware in the cervical spine. Upper abdomen: A CT of the abdomen and pelvis was performed and will be reported separately. Baggagemaster (topogram) images: No additional findings. DIVISION OF RADIOLOGY Provider, [facility] - 12/20/2023 * * *Final Report* * * DATE OF EXAM: Dec 20 2023 10:21AM [facility] 0539 - CT CHEST W IVCON / PROCEDURE REASON: Malignant neoplasm of rectum (HCC) * * * * Physician Interpretation * * * * RESULT: EXAMINATION: CHEST CT WITH CONTRAST CLINICAL HISTORY: Malignant neoplasm of the rectum. Technique: Spiral CT acquisition of the chest from the thoracic inlet to the upper abdomen following IV contrast. MQ: CTCW_6 Contrast: 150 mL Omnipaque [address] Radiation dose: Integrated Dose-length product (DLP) for this visit = 1515 mGy*cm CT Dose Reduction Employed: mAs-kVp adjusted based on patient size-age Comparison: Chest CT with contrast from 06/20/2023 RESULT: Limitations: None. Lines, tubes, and devices: Right jugular venous Port-A-Cath with tip near superior cavoatrial junction. Lung parenchyma and airways: Pulmonary nodules are again noted on series 4. For example, there is a small 3 mm nodule in the posterior right upper lobe on slice 53 which appears relatively stable. 8 mm solid nodule on slice 68 of series 4 which appears relatively stable when compared to the prior exam 3 mm solid nodule in the lateral right upper lobe on slice 68 which appears relatively stable when compared to the prior exam Additional subcentimeter pulmonary nodules which appear relatively stable. Pleural space: No pleural effusion. No pleural thickening. Lower neck, lymph nodes, and mediastinum: No suspicious axillary lymphadenopathy. Stable mediastinal and right hilar lymph nodes which measure less than a centimeter in short axis diameter. Calcified subcarinal lymph node compatible with old granulomatous disease. Heart, pericardium, and thoracic vessels: No pericardial effusion. No significant coronary artery calcification. Bones and soft tissues: Partial visualization of anterior fusion hardware in the cervical spine. Upper abdomen: A CT of the abdomen and pelvis was performed and will be reported separately. Baggagemaster (topogram) images: No additional findings. IMPRESSION IMPRESSION: 1. Stable nonspecific subcentimeter pulmonary nodules as described above. There are also stable small nonspecific mediastinal lymph nodes and right hilar lymph node. Would advise continued close attention on follow-up/surveillance scans. Transcribe Date/Time: Dec 20 2023 1:35P Dictated by: MERVAT LAUREN MD This examination was interpreted and the report reviewed and electronically signed by: MERVAT LAUREN MD on Dec 20 2023 1:44PM EST Thank you for allowing us to participate in the care of your patient. Should there be any questions regarding this interpretation, please call [phone]. If you are unable to reach us at the number above, please feel free to contact [facility] at [phone]. [facility] Comprehensive metabolic 2000 panelOrdered By: Toshia Stokes on 12-20-2023 Albumin [Mass/Vol] 4.0 g/dL 3.9 - 4.9 g/dL [facility] ALP [Catalytic activity/Vol] 102 U/L 38 - 113 U/L [facility] ALT [Catalytic activity/Vol] 11 U/L 10 - 54 U/L [facility] Anion gap [Moles/Vol] 9 mmol/L 9 - 18 mmol/L [facility] AST [Catalytic activity/Vol] 12 U/L Low 14 - 40 U/L [facility] Bilirubin [Mass/Vol] 0.7 mg/dL 0.2 - 1 .3 mg/dL [facility] Calcium [Mass/Vol] 9.6 mg/dL 8.5 - 10. 2 mg/dL [facility] Chloride [Moles/Vol] 107 mmol/L High 97 - 10 5 mmol/L [facility] CO2 [Moles/Vol] 27 mmol/L 22 - 30 mmol/L [facility] Creatinine [Mass/Vol] 1.07 mg/dL 0.73 - 1.22 mg/dL [facility] GFR/1.73 sq M.predicted among non-blacks MDRD (S/P/Bld) [Vol rate/Area] 74 mL/min/{1.73_m2} - PINF [facility] Comment on above: Estimated Glomerular Filtration Rate (eGFR) is calculated using the 2020 CKD-EPI creatinine equation. This equation utilizes serum creatinine, sex, and age as parameters. The creatinine assay has traceable calibration to isotope dilution-mass spectrometry. Refer to KDIGO guidelines for clinical interpretation. In patients with unstable renal function, e.g. those with acute kidney injury, the eGFR may not accurately reflect actual GFR. Glucose [Mass/Vol] 87 mg/dL 74 - 99 mg/dL [facility] Comment on above: The [place] [employer] (ADA) provides guidance for cutoff values for fasting glucose and random glucose. The ADA defines fasting as no caloric intake for at least 8 hours. Fasting plasma glucose results between 100 to 125 mg/dL indicate increased risk for diabetes (prediabetes). Fasting plasma glucose results greater than or equal to 126 mg/dL meet the criteria for diagnosis of diabetes. In the absence of unequivocal hyperglycemia, results should be confirmed by repeat testing. In a patient with classic symptoms of hyperglycemia or hyperglycemic crisis, random plasma glucose results greater than or equal to 200 mg/dL meet the criteria for diagnosis of diabetes. Reference: Standards of Medical Care in Diabetes 2016, [place] [employer]. Diabetes Care. 2016.39(Suppl 1). Interpretation and review of laboratory results Abnormal [facility] Potassium [Moles/Vol] 4.4 mmol/L 3.7 - 5.1 mmol/L [facility] Protein [Mass/Vol] 6.5 g/dL 6.3 - 8.0 g/dL [facility] Sodium [Moles/Vol] 143 mmol/L 136 - 144 mmol/L [facility] Urea nitrogen [Mass/Vol] 19 mg/dL 9 - 24 mg/dL [facility] No Panel Informationon 12-19 Radiology Study observation (narrative) [facility] MR Pelvis WO contraston 11-21 [facility] MR lumbar spine wo conon MR lumbar spine wo [facility] [place] [address] MRI Report Signed Patient: Mervat Grayson MR#: [id number] : 1950 Acct:[id number] Age/Sex: 72 / M ADM Date: 08/14/23 [facility] Room: Type: [facility] CLI Attending Dr: Valencia Webster LOAN INSPECTOR-C Copies to: JM Godoy Ordering Provider: JM [...] Houser Jr., D.O.08/14/2023 2:30 PM Dictation Location: [place] [address] Transcribed By: [facility] 08/14/23 1430 Dictated By: Hang Houser Jr, DO 08/14/23 1426 Signed By: 08/14/23 1430 [facility] MR lumbar spine wo con [facility] [employer] Other MR lumbar spine wo con [facility] [employer] Other MR lumbar spine wo con 1[address] [facility] [employer] Other MR lumbar spine wo con JAKUB Koenig [address] [employer] Other MR lumbar spine wo con MRI Report [employer] Other MR lumbar spine wo con Signed [employer] Other MR lumbar spine wo con Patient: Mervat Grayson MR#: [id number] [employer] Other MR lumbar spine wo con [id number] [employer] Other MR lumbar spine wo con : 1950 Acct:[id number] [employer] Other MR lumbar spine wo con Age/Sex: 72 / M ADM Date: 08/14/23 [employer] Other MR lumbar spine wo con Loc: [facility] Room: Type: [facility] [employer] Other MR lumbar spine wo con Attending Dr: Valencia Webster NP-C [employer] Other MR lumbar spine wo con Copies to: Valencia Webster NP-C [employer] Other MR lumbar spine wo con Ordering Provider: JM Godoy [employer] Other MR lumbar spine wo con Date of Service: 08/14/23 [employer] Other MR lumbar spine wo con MR/MR lumbar spine wo con: Polyneuropathy [employer] Other MR lumbar spine wo con MRI lumbar spine without IV contrast. [employer] Other MR lumbar spine wo con Reason for exam: Back pain. History of colorectal cancer.. No known injury. [employer] Other MR lumbar spine wo con COMPARISON: Lumbar spine series 05/17/2023. Ex [employer] Other MR lumbar spine wo con TECHNIQUE: Multisequence, multiplanar imaging of the lumbar spine was obtained without the use of IV [employer] Other MR lumbar spine wo con contrast. [employer] Other MR lumbar spine wo con FINDINGS: Vertebral body heights appear maintained. No bone marrow edema is seen. Presumed [employer] Other MR lumbar spine wo con postradiation bone marrow changes are seen involving the L5 vertebral body and visualized sacrum. [employer] Other MR lumbar spine wo con Spinal cord terminates in normal position without abnormal cord signal. No paraspinal mass. [employer] Other MR lumbar spine wo con Visualized retroperitoneum demonstrates presumed bilateral parapelvic cysts. [employer] Other MR lumbar spine wo con L1-L2: Diffuse broad-based disc bulge is present with central protrusion type disc herniation noted. [employer] Other MR lumbar spine wo con There is ligamentum flavum hypertrophy and facet joint degenerative changes. Findings are causing [employer] Other MR lumbar spine wo con moderate canal and severe left-sided neural foraminal stenosis. Mild right-sided neural foraminal [employer] Other MR lumbar spine wo con stenosis. [employer] Other MR lumbar spine wo con L2-L3: 5 mm retrolisthesis is noted. Broad-based disc bulge is present with ligamentum flavum [employer] Other MR lumbar spine wo con hypertrophy and facet joint degenerative changes. Findings are causing moderate canal and severe [employer] Other MR lumbar spine wo con bilateral neural foraminal narrowing. [employer] Other MR lumbar spine wo con L3-L4: 3 mm retrolisthesis. Diffuse broad-based disc bulge is present with ligamentum flavum [employer] Other MR lumbar spine wo con hypertrophy and facet joint degenerative changes causing mild canal and severe bilateral neural [employer] Other MR lumbar spine wo con foraminal stenosis. [employer] Other MR lumbar spine wo con L4-L5: 6 mm of anterolisthesis. Diffuse broad-based disc bulge is present with ligamentum flavum [employer] Other MR lumbar spine wo con hypertrophy and facet joint degenerative changes causing severe canal and right-sided neural [employer] Other MR lumbar spine wo con foraminal stenosis. Moderate left-sided neural foraminal stenosis. [employer] Other MR lumbar spine wo con L5-S1: No posterior disc pathology is noted. Facet joint degenerative changes. No significant canal [employer] Other MR lumbar spine wo con stenosis. Severe bilateral foraminal stenosis. [employer] Other MR lumbar spine wo con MR/MR lumbar spine wo con [employer] Other MR lumbar spine wo con Impression: Multilevel degenerative disc disease as described above. [employer] Other MR lumbar spine wo con Impression dictated by: Hang Houser Jr., D.O.08/14/2023 2:30 PM [employer] Other MR lumbar spine wo con Dictation Location: [place] [address] [employer] Other MR lumbar spine wo con Transcribed By: PWS 08/14/23 1430 [employer] Other MR lumbar spine wo con Dictated By: Hang Houser Jr, DO 08/14/23 1426 [employer] Other MR lumbar spine wo con Signed By: [employer] Other MR lumbar spine wo con 08/14/23 1430 [employer] Other SIGMOIDOSCOPYon 07-09-[address] [facility] [address] Abdomen W contrast Ivelisse 0 06-22-2023 IMPRESSION: Stable CT examination of the abdomen. No CT evidence for metastatic disease. Incidental note is again made of cholelithiasis and bilateral nonobstructive nephrolithiasis. Transcribe Date/Time: Jun 20 2023 1:32P Dictated by: NILS LI MD This examination was interpreted and the report reviewed and electronically signed by: NILS LI MD on Jun 22 2023 8:20AM EST Thank you for allowing us to participate in the care of your patient. Should there be any questions regarding this interpretation, please call [phone]. If you are unable to reach us at the number above, please feel free to contact [facility] at [phone]. DIVISION OF RADIOLOGY * * *Final Report* * * DATE OF EXAM: Jun 20 2023 10:46AM [facility] 0533 - CT ABDOMEN W IVCON / PROCEDURE REASON: Malignant neoplasm of rectum (HCC) * * * * Physician Interpretation * * * * RESULT: EXAMINATION: CT ABDOMEN WITH IV CONTRAST CLINICAL HISTORY: Rectal carcinoma TECHNIQUE: CT of the abdomen was performed using standard technique, scanning from just above the dome of the diaphragm to the iliac crest. MQ: CTAbdW_4 Contrast: IV: 150 ml of Omnipaque 300 Oral: 500 ml of Omni 240 10-25ml diluted with water CT Radiation dose: Integrated Dose-length product (DLP) for this visit = 1027 mGy*cm. CT Dose Reduction Employed: Automated exposure control (AEC) COMPARISON: 12/10/2022 RESULT: Liver: No mass. Biliary Tract: No bile duct dilation. A small amount of cholelithiasis is again appreciated. Spleen: No splenomegaly. No mass. Pancreas: No mass or ductal dilatation. Adrenal glands: No mass. Kidneys: Punctate, less than 2 mm right renal calculus, unchanged. Approximate 4 mm nonobstructive left renal calculus, stable. Bilateral parapelvic cysts are again appreciated. GI Tract: No bowel wall thickening or dilation. Lymph nodes: No substantial mesenteric or retroperitoneal lymphadenopathy. Mesentery/Peritoneum: No ascites or mass. Retroperitoneum: No mass. Vasculature: - Abdominal aorta and iliac arteries: No aneurysm - Celiac and SMA: Patent. - Portal venous system (SMV, splenic vein, portal vein and branches): Patent. - Hepatic veins: Patent. Bones/Soft Tissues: Degenerative change involving the lumbar spine. No osseous destructive process. Small fat-containing periumbilical abdominal hernia is noted, stable. Lower Thorax: A CT examination of the chest has been performed concurrently and will be dictated separately. Baggagemaster (topogram) images: No additional findings. DIVISION OF RADIOLOGY Provider, [facility] 06/22/[facility]23 * * *Final Report* * * DATE OF EXAM: Jun 20 2023 10:46AM [facility] 0533 - CT ABDOMEN W IVCON / PROCEDURE REASON: Malignant neoplasm of rectum (HCC) * * * * Physician Interpretation * * * * RESULT: EXAMINATION: CT ABDOMEN WITH IV CONTRAST CLINICAL HISTORY: Rectal carcinoma TECHNIQUE: CT of the abdomen was performed using standard technique, scanning from just above the dome of the diaphragm to the iliac crest. MQ: CTAbdW_4 Contrast: IV: 150 ml of Omnipaque 300 Oral: 500 ml of Omni 240 10-25ml diluted with water CT Radiation dose: Integrated Dose-length product (DLP) for this visit = 1027 mGy*cm. CT Dose Reduction Employed: Automated exposure control (AEC) COMPARISON: 12/10/2022 RESULT: Liver: No mass. Biliary Tract: No bile duct dilation. A small amount of cholelithiasis is again appreciated. Spleen: No splenomegaly. No mass. Pancreas: No mass or ductal dilatation. Adrenal glands: No mass. Kidneys: Punctate, less than 2 mm right renal calculus, unchanged. Approximate 4 mm nonobstructive left renal calculus, stable. Bilateral parapelvic cysts are again appreciated. GI Tract: No bowel wall thickening or dilation. Lymph nodes: No substantial mesenteric or retroperitoneal lymphadenopathy. Mesentery/Peritoneum: No ascites or mass. Retroperitoneum: No mass. Vasculature: - Abdominal aorta and iliac arteries: No aneurysm - Celiac and SMA: Patent. - Portal venous system (SMV, splenic vein, portal vein and branches): Patent. - Hepatic veins: Patent. Bones/Soft Tissues: Degenerative change involving the lumbar spine. No osseous destructive process. Small fat-containing periumbilical abdominal hernia is noted, stable. Lower Thorax: A CT examination of the chest has been performed concurrently and will be dictated separately. Baggagemaster (topogram) images: No additional findings. IMPRESSION IMPRESSION: Stable CT examination of the abdomen. No CT evidence for metastatic disease. Incidental note is again made of cholelithiasis and bilateral nonobstructive nephrolithiasis. Transcribe Date/Time: Jun 20 2023 1:32P Dictated by: NILS LI MD This examination was interpreted and the report reviewed and electronically signed by: NILS LI MD on Jun 22 2023 8:20AM EST Thank you for allowing us to participate in the care of your patient. Should there be any questions regarding this interpretation, please call [phone]. If you are unable to reach us at the number above, please feel free to contact [facility] at [phone]. [facility] CT Chest W contrast Ivelisse IMPRESSION: 1. Several bilateral nonspecific pulmonary nodules are again identified, stable in size and number from the prior study of 12/10/2022. 2. Mild right hilar adenopathy appears more conspicuous. Additional mildly prominent hilar and mediastinal lymph nodes elsewhere, stable. Correlation with continued follow-up examinations is recommended. Transcribe Date/Time: Jun 20 2023 1:40P Dictated by: NILS LI MD This examination was interpreted and the report reviewed and electronically signed by: NILS LI MD on Jun 22 2023 9:06AM EST Thank you for allowing us to participate in the care of your patient. Should there be any questions regarding this interpretation, please call [phone]. If you are unable to reach us at the number above, please feel free to contact [facility] at [phone]. DIVISION OF RADIOLOGY * * *Final Report* * * DATE OF EXAM: Jun 20 2023 10:46AM [facility] 0539 - CT CHEST W IVCON / PROCEDURE REASON: Malignant neoplasm of rectum (HCC) * * * * Physician Interpretation * * * * RESULT: EXAMINATION: CHEST CT WITH CONTRAST CLINICAL HISTORY: Rectal carcinoma Technique: Spiral CT acquisition of the chest from the thoracic inlet to the upper abdomen following IV contrast. MQ: CTCW_6 Contrast: 150 mL Omnipaque [address] Radiation dose: Integrated Dose-length product (DLP) for this visit = 1027 mGy*cm CT Dose Reduction Employed: Automated exposure control (AEC) Comparison: CT chest 12/10/2022 RESULT: Limitations: None. Lines, tubes, and devices: Right-sided Port-A-Cath is noted in place. Lung parenchyma , airways, and pleural space: Numerous bilateral 9 mm or less pulmonary nodules are again identified, stable: For example, on the right, images 54, 70, 72, 85, 103, series 4. On the left, for example, images 81 and 86, series 4. Lower neck, lymph nodes, and mediastinum: The visualized thyroid gland is stable. No substantial supraclavicular or axillary lymphadenopathy is identified. Dense subcarinal calcification is appreciated, compatible with prior granulomatous disease. Mildly window region mediastinal adenopathy measures 1.0 cm in short axis diameter. Precarinal mildly prominent lymph node measures 0.9 cm in short axis. Mild right hilar adenopathy appears progressed measuring 1.8 x 1.5 cm, previously at similar level measuring 1.6 x 1.0 cm. Mild soft tissue prominence elsewhere involving the jay bilaterally, not substantially changed. Heart, pericardium, and thoracic vessels: The thoracic aorta is normal in caliber. No substantial pericardial effusion is present. Bones/Soft Tissues: No osseous destructive process. Upper Abdomen: A CT examination of the abdomen has been performed concurrently and will be dictated separately. Baggagemaster (topogram) images: No additional findings. DIVISION OF RADIOLOGY Provider, [facility] - 06/22/2023 * * *Final Report* * * DATE OF EXAM: Jun 20 2023 10:46AM [facility] 0539 - CT CHEST W IVCON / PROCEDURE REASON: Malignant neoplasm of rectum (HCC) * * * * Physician Interpretation * * * * RESULT: EXAMINATION: CHEST CT WITH CONTRAST CLINICAL HISTORY: Rectal carcinoma Technique: Spiral CT acquisition of the chest from the thoracic inlet to the upper abdomen following IV contrast. MQ: [id number] Contrast: 150 mL Omnipaque [address] Radiation dose: Integrated Dose-length product (DLP) for this visit = 1027 mGy*cm CT Dose Reduction Employed: Automated exposure control (AEC) Comparison: CT chest 12/10/2022 RESULT: Limitations: None. Lines, tubes, and devices: Right-sided Port-A-Cath is noted in place. Lung parenchyma , airways, and pleural space: Numerous bilateral 9 mm or less pulmonary nodules are again identified, stable: For example, on the right, images 54, 70, 72, 85, 103, series 4. On the left, for example, images 81 and 86, series 4. Lower neck, lymph nodes, and mediastinum: The visualized thyroid gland is stable. No substantial supraclavicular or axillary lymphadenopathy is identified. Dense subcarinal calcification is appreciated, compatible with prior granulomatous disease. Mildly window region mediastinal adenopathy measures 1.0 cm in short axis diameter. Precarinal mildly prominent lymph node measures 0.9 cm in short axis. Mild right hilar adenopathy appears progressed measuring 1.8 x 1.5 cm, previously at similar level measuring 1.6 x 1.0 cm. Mild soft tissue prominence elsewhere involving the jay bilaterally, not substantially changed. Heart, pericardium, and thoracic vessels: The thoracic aorta is normal in caliber. No substantial pericardial effusion is present. Bones/Soft Tissues: No osseous destructive process. Upper Abdomen: A CT examination of the abdomen has been performed concurrently and will be dictated separately. Baggagemaster (topogram) images: No additional findings. IMPRESSION IMPRESSION: 1. Several bilateral nonspecific pulmonary nodules are again identified, stable in size and number from the prior study of 12/10/2022. 2. Mild right hilar adenopathy appears more conspicuous. Additional mildly prominent hilar and mediastinal lymph nodes elsewhere, stable. Correlation with continued follow-up examinations is recommended. Transcribe Date/Time: Jun 20 2023 1:40P Dictated by: NILS LI MD This examination was interpreted and the report reviewed and electronically signed by: NILS LI MD on Jun 22 2023 9:06AM EST Thank you for allowing us to participate in the care of your patient. Should there be any questions regarding this interpretation, please call [phone]. If you are unable to reach us at the number above, please feel free to contact [facility] eRadiology at [phone]. [facility] CT Chest W contrast IVOrdere d By: [facility] Provider on 06-22-2023 [facility] CBC W Auto Differential pane l (Bld)on 06-20-2023 Basophils (Bld) [#/Vol] 0.05 10*3/uL <0.11 k/uL [facility] Basophils/100 WBC (Bld) 0.8 % [facility] Differential cell count method Nom (Bld) Auto [facility] Eosinophils (Bld) [#/Vol] 0.20 10*3/uL <0.46 k/uL [facility] Eosinophils/100 WBC (Bld) 3.2 % [facility] Erythrocyte distribution width (RBC) [Ratio] 16.4 % High 11.5 - 15.0 % [facility] Hematocrit (Bld) [Volume fraction] 37.4 % Low 39.0 - 51.0 % [facility] Hemoglobin (Bld) [Mass/Vol] 12.1 g/dL Low 13.0 - 17.0 g/dL [facility] Immature granulocytes (Bld) [#/Vol] 0.04 10*3/uL <0.10 k/uL [facility] Immature granulocytes/100 WBC (Bld) 0.6 % [facility] Lymphocytes (Bld) [#/Vol] 0.82 10*3/uL Low 1.00 - 4.00 k/uL [facility] Lymphocytes/100 WBC (Bld) 13.1 % [facility] MCH (RBC) [Entitic mass] 31.7 pg 26.0 - 34.0 pg [facility] MCHC (RBC) [Mass/Vol] 32.4 g/dL 30.5 - 36.0 g/dL [facility] MCV (RBC) [Entitic vol] 97.9 fL 80.0 - 100.0 fL [facility] Monocytes (Bld) [#/Vol] 0.83 10*3/uL <0.87 k/uL [facility] Monocytes/100 WBC (Bld) 13.3 % [facility] Neutrophils (Bld) [#/Vol] 4.32 10*3/uL 1.45 - 7.50 k/uL [facility] Neutrophils/100 WBC (Bld) 69.0 % [facility] Nucleated RBC (Bld) [#/Vol] <0.01 k/uL [facility] Nucleated RBC/100 WBC (Bld) [Ratio] 0.0 /100 WBC [facility] Platelet mean volume (Bld) [Entitic vol] 9.7 fL 9.0 - 12.7 fL [facility] Platelets (Bld) [#/Vol] 196 10*3/uL 150 - 400 k/uL [facility] RBC (Bld) [#/Vol] 3.82 10*6/uL Low 4.20 - 6.0 0 m/uL [facility] WBC (Bld) [#/Vol] 6.26 10*3/uL 3.70 - 11.00 k/uL [facility] Comprehensive metabolic 2000 panelon 06-20-2023 Albumin [Mass/Vol] 3.9 g/dL 3.9 - 4.9 g/dL [facility] ALP [Catalytic activity/Vol] 97 U/L 38 - 113 U/L [facility] ALT [Catalytic activity/Vol] 9 U/L Low 10 - 54 U/L [facility] Anion gap [Moles/Vol] 10 mmol/L 9 - 18 mmol/L [facility] AST [Catalytic activity/Vol] 11 U/L Low 14 - 40 U/L [facility] Bilirubin [Mass/Vol] 0.4 mg/dL 0.2 - 1 .3 mg/dL [facility] Calcium [Mass/Vol] 9.3 mg/dL 8.5 - 10. 2 mg/dL [facility] Chloride [Moles/Vol] 109 mmol/L High 97 - 10 5 mmol/L [facility] CO2 [Moles/Vol] 26 mmol/L 22 - 30 mmol/L [facility] Creatinine [Mass/Vol] 1.14 mg/dL 0.73 - 1.22 mg/dL [facility] Estimated Glomerular Filtration Rate 69 mL/min/1.73m >=60 mL/min/1.73 m [facility] Glucose [Mass/Vol] 90 mg/dL 74 - 99 mg/dL [facility] Potassium [Moles/Vol] 3.9 mmol/L 3.7 - 5.1 mmol/L [facility] Protein [Mass/Vol] 6.1 g/dL Low 6.3 - 8.0 g/dL [facility] Sodium [Moles/Vol] 145 mmol/L High 136 - 144 mmol/L [facility] Urea nitrogen [Mass/Vol] 21 mg/dL 9 - 24 mg/dL [facility] MAGNESIUM BLDon 06-20-2023 Magnesium [Mass/Vol] 2.0 mg/dL 1.7 - 2 .3 mg/dL [facility] No Panel Informationon 06-20 Radiology Study observation (narrative) [facility] CEA BLDon 05-29-2023 Carcinoembryonic Ag [Mass/Vol] 2.2 ng/mL <=2.9 ng/mL [facility] CBC W Auto Differential pane l (Bld)on 05-28-2023 Basophils (Bld) [#/Vol] 0.04 10*3/uL <0.11 k/uL [facility] Basophils/100 WBC (Bld) 0.4 % [facility] Differential cell count method Nom (Bld) Auto [facility] Eosinophils (Bld) [#/Vol] 0.16 10*3/uL <0.46 k/uL [facility] Eosinophils/100 WBC (Bld) 1.7 % [facility] Erythrocyte distribution width (RBC) [Ratio] 17.1 % High 11.5 - 15.0 % [facility] Hematocrit (Bld) [Volume fraction] 37.7 % Low 39.0 - 51.0 % [facility] Hemoglobin (Bld) [Mass/Vol] 12.2 g/dL Low 13.0 - 17.0 g/dL [facility] Immature granulocytes (Bld) [#/Vol] 0.05 10*3/uL <0.10 k/uL [facility] Immature granulocytes/100 WBC (Bld) 0.5 % [facility] Lymphocytes (Bld) [#/Vol] 0.65 10*3/uL Low 1.00 - 4.00 k/uL [facility] Lymphocytes/100 WBC (Bld) 6.8 % [facility] MCH (RBC) [Entitic mass] 32.3 pg 26.0 - 34.0 pg [facility] MCHC (RBC) [Mass/Vol] 32.4 g/dL 30.5 - 36.0 g/dL [facility] MCV (RBC) [Entitic vol] 99.7 fL 80.0 - 100.0 fL [facility] Monocytes (Bld) [#/Vol] 0.71 10*3/uL <0.87 k/uL [facility] Monocytes/100 WBC (Bld) 7.4 % [facility] Neutrophils (Bld) [#/Vol] 7.93 10*3/uL High 1.45 - 7.50 k/uL [facility] Neutrophils/100 WBC (Bld) 83.2 % [facility] Nucleated RBC (Bld) [#/Vol] <0.01 k/uL [facility] Nucleated RBC/100 WBC (Bld) [Ratio] 0.0 /100 WBC [facility] Platelet mean volume (Bld) [Entitic vol] 10.1 fL 9.0 - 12.7 fL [facility] Platelets (Bld) [#/Vol] 206 10*3/uL 150 - 400 k/uL [facility] RBC (Bld) [#/Vol] 3.78 10*6/uL Low 4.20 - 6.0 0 m/uL [facility] WBC (Bld) [#/Vol] 9.54 10*3/uL 3.70 - 11.00 k/uL [facility] Comprehensive metabolic 2000 panelon 05-28-2023 Albumin [Mass/Vol] 3.8 g/dL Low 3.9 - 4.9 g/dL [facility] ALP [Catalytic activity/Vol] 93 U/L 38 - 113 U/L [facility] ALT [Catalytic activity/Vol] 9 U/L Low 10 - 54 U/L [facility] Anion gap [Moles/Vol] 9 mmol/L 9 - 18 mmol/L [facility] AST [Catalytic activity/Vol] 15 U/L 14 - 40 U/L [facility] Bilirubin [Mass/Vol] 0.4 mg/dL 0.2 - 1 .3 mg/dL [facility] Calcium [Mass/Vol] 9.3 mg/dL 8.5 - 10. 2 mg/dL [facility] Chloride [Moles/Vol] 105 mmol/L 97 - 10 5 mmol/L [facility] CO2 [Moles/Vol] 27 mmol/L 22 - 30 mmol/L [facility] Creatinine [Mass/Vol] 1.12 mg/dL 0.73 - 1.22 mg/dL [facility] Estimated Glomerular Filtration Rate 71 mL/min/1.73m >=60 mL/min/1.73 m [facility] Glucose [Mass/Vol] 86 mg/dL 74 - 99 mg/dL [facility] Potassium [Moles/Vol] 3.8 mmol/L 3.7 - 5.1 mmol/L [facility] Protein [Mass/Vol] 6.1 g/dL Low 6.3 - 8.0 g/dL [facility] Sodium [Moles/Vol] 141 mmol/L 136 - 144 mmol/L [facility] Urea nitrogen [Mass/Vol] 19 mg/dL 9 - 24 mg/dL [facility] MR cervical spine wo/w conon 05-23-2023 MR cervical spine wo/w con [facility] Main [place] [address] [place] [address] MRI Report Signed Patient: Mervat Grayson MR#: [id number] : 1950 Acct:[id number] Age/Sex: 72 / M ADM Date: 05/22/23 Loc: MR Room: Type: [facility] Attending Dr: Valencia ONEAL Copies to: [...] Brett Crowley M.D.05/23/2023 12:40 PM Dictation Location: [place] [address] Transcribed By: [facility] 05/23/23 1240 Dictated By: Brett Crowley II, MD 05/23/23 1228 Signed By: 05/23/23 1240 [facility] MR cervical spine wo/w con [facility] DICOM Grid Other MR cervical spine wo/w con [facility] Tap[employer] Other MR cervical spine wo/w con [address] [place] [address] [employer] Other MR cervical spine wo/[place] [address] [employer] Other MR cervical spine wo/w con MRI Report [employer] Other MR cervical spine wo/w con Signed [employer] Other MR cervical spine wo/w con Patient: Mervat Grayson MR#: [id number] [employer] Other MR cervical spine wo/w con 4313 [employer] Other MR cervical spine wo/w con : 1950 Acct:[id number] [employer] Other MR cervical spine wo/w con Age/Sex: 72 / M ADM Date: 05/22/23 [employer] Other MR cervical spine wo/w con Loc: MR Room: Type: [facility] [employer] Other MR cervical spine wo/w con Attending Dr: Valencia GONZALEZC [employer] Other MR cervical spine wo/w con Copies to: LISA GodoyC [employer] Other MR cervical spine wo/w con Ordering Provider: LISA GodoyC [employer] Other MR cervical spine wo/w con Date of Service: 05/22/23 [employer] Other MR cervical spine wo/w con MR/MR cervical spine wo/w con: M54.12 [employer] Other MR cervical spine wo/w con MR cervical spine wo/w con 05/22/2023 9:21 PM [employer] Other MR cervical spine wo/w con SIGNS AND SYMPTOMS: Neck pain, stiffness, history of colorectal cancer [employer] Other MR cervical spine wo/w con PROTOCOL: Multiplanar multisequence MR images of the cervical spine were obtained with and without [employer] Other MR cervical spine wo/w con IV contrast [employer] Other MR cervical spine wo/w con CONTRAST: 20 mL of intravenous ProHance [employer] Other MR cervical spine wo/w con COMPARISON: 03/18/2023 and 10/20/2015 [employer] Other MR cervical spine wo/w con FINDINGS: The bones of the cervical spine are in anatomic alignment. There is preservation of [employer] Other MR cervical spine wo/w con vertebral body heights. There is intervertebral fusion at C4-C5 with anterior fusion from C5 through [employer] Other MR cervical spine wo/w con C7. This is unchanged. The marrow signal is within normal limits. The cord is normal in signal. No [employer] Other MR cervical spine wo/w con epidural or paraspinous fluid collection is appreciated. The visualized paraspinous soft tissues are [employer] Other MR cervical spine wo/w con within normal limits. The prevertebral soft tissues are within normal limits. [employer] Other MR cervical spine wo/w con At C2-C3: There is uncovertebral joint spurring and uncovertebral joint spurring. There is mild to [employer] Other MR cervical spine wo/w con moderate left neural foraminal narrowing without spinal canal narrowing. [employer] Other MR cervical spine wo/w con At C3-C4: There is a broad-based disc bulge with facet and negative joint degenerative change [employer] Other MR cervical spine wo/w con contributing to moderate bilateral neural foraminal narrowing with mild spinal canal narrowing. [employer] Other MR cervical spine wo/w con These changes are slightly worse when compared to the previous MRI. [employer] Other MR cervical spine wo/w con At C4-C5: There is intervertebral fusion with uncovertebral joint spurring and facet hypertrophy. [employer] Other MR cervical spine wo/w con There is moderate severe left and mild right neural foraminal narrowing. This mild spinal canal [employer] Other MR cervical spine wo/w con narrowing. There has been improvement in spinal canal stenosis since the previous MRI. [employer] Other MR cervical spine wo/w con At C5-C6: There is uncovertebral joint spurring and facet hypertrophy with moderate bilateral neural [employer] Other MR cervical spine wo/w con foraminal narrowing. No significant spinal canal narrowing. [employer] Other MR cervical spine wo/w con At C6-C7: There is a broad-based disc bulge with facet and uncovertebral joint degenerative change [employer] Other MR cervical spine wo/w con contributing to severe bilateral neural foraminal narrowing with mild spinal canal narrowing. [employer] Other MR cervical spine wo/w con At C7-T1: Facet hypertrophy is present bilaterally contributing to moderate bilateral neural [employer] Other MR cervical spine wo/w con foraminal narrowing. There is no significant spinal canal narrowing. [employer] Other MR cervical spine wo/w con MR/MR cervical spine wo/w con [employer] Other MR cervical spine wo/w con IMPRESSION: [employer] Other MR cervical spine wo/w con No cord compression or cord signal abnormality. [employer] Other MR cervical spine wo/w con No abnormal postcontrast enhancement. [employer] Other MR cervical spine wo/w con Significant multilevel disc, facet, and uncovertebral joint degenerative change contributing to [employer] Other MR cervical spine wo/w con varying degrees of spinal canal and neural foraminal narrowing, as detailed above. [employer] Other MR cervical spine wo/w con Impression dictated by: Brett Crowley M.D.05/23/2023 12:40 PM [employer] Other MR cervical spine wo/w con Dictation Location: [place] [address] [employer] Other MR cervical spine wo/w con Transcribed By: SOLIS 05/23/23 1240 [employer] Other MR cervical spine wo/w con Dictated By: Brett Crowley II, MD 05/23/23 1228 [employer] Other MR cervical spine wo/w con Signed By: [employer] Other MR cervical spine wo/w con 05/23/23 1240 [employer] Other Creatinine (Bld) [Mass/Vol]O rdered By: Valencia Webster on 05-22-2023 Creatinine [Mass/Vol] 1.3 mg/dL 0.6-1.3 [facility] Comment on above: ER/ESD physician is notified/shown all ISTAT results.Critical values may be confirmed by laboratory testing ifdeemed necessary by ER attending doctor. Basic metabolic 2000 panelon 05-14-2023 Anion gap [Moles/Vol] 7 mmol/L Low 9 - 18 mmol/L [facility] Calcium [Mass/Vol] 9.3 mg/dL 8.5 - 10. 2 mg/dL [facility] Chloride [Moles/Vol] 105 mmol/L 97 - 10 5 mmol/L [facility] CO2 [Moles/Vol] 28 mmol/L 22 - 30 mmol/L [facility] Creatinine [Mass/Vol] 1.08 mg/dL 0.73 - 1.22 mg/dL [facility] Estimated Glomerular Filtration Rate 74 mL/min/1.73m >=60 mL/min/1.73 m [facility] Glucose [Mass/Vol] 106 mg/dL High 74 - 99 mg/dL [facility] Potassium [Moles/Vol] 3.8 mmol/L 3.7 - 5.1 mmol/L [facility] Sodium [Moles/Vol] 140 mmol/L 136 - 144 mmol/L [facility] Urea nitrogen [Mass/Vol] 22 mg/dL 9 - 24 mg/dL [facility] MRI RECTUM WO/W IVCONon 06-2 MRI RECTUM [...] Date/Time: Apr 19 2023 7:05A Dictated by: KAYDEN ISBELL MD This examination was interpreted and the report reviewed and electronically signed by: KAYDEN ISBELL MD on Apr 19 2023 7:18AM EST [id number] [facility] CBC W Auto Differential pane l (Bld)on 04-16-2023 Basophils (Bld) [#/Vol] 0.07 10*3/uL <0.11 k/uL [facility] Basophils/100 WBC (Bld) 0.8 % [facility] Differential cell count method Nom (Bld) Auto [facility] Eosinophils (Bld) [#/Vol] 0.14 10*3/uL <0.46 k/uL [facility] Eosinophils/100 WBC (Bld) 1.7 % [facility] Erythrocyte distribution width (RBC) [Ratio] 17.3 % High 11.5 - 15.0 % [facility] Hematocrit (Bld) [Volume fraction] 35.2 % Low 39.0 - 51.0 % [facility] Hemoglobin (Bld) [Mass/Vol] 11.3 g/dL Low 13.0 - 17.0 g/dL [facility] Immature granulocytes (Bld) [#/Vol] 0.13 10*3/uL High <0.10 k/uL [facility] Immature granulocytes/100 WBC (Bld) 1.6 % [facility] Lymphocytes (Bld) [#/Vol] 1.09 10*3/uL 1.00 - 4.00 k/uL [facility] Lymphocytes/100 WBC (Bld) 13.1 % [facility] MCH (RBC) [Entitic mass] 31.9 pg 26.0 - 34.0 pg [facility] MCHC (RBC) [Mass/Vol] 32.1 g/dL 30.5 - 36.0 g/dL [facility] MCV (RBC) [Entitic vol] 99.4 fL 80.0 - 100.0 fL [facility] Monocytes (Bld) [#/Vol] 0.75 10*3/uL <0.87 k/uL [facility] Monocytes/100 WBC (Bld) 9.0 % [facility] Neutrophils (Bld) [#/Vol] 6.14 10*3/uL 1.45 - 7.50 k/uL [facility] Neutrophils/100 WBC (Bld) 73.8 % [facility] Nucleated RBC (Bld) [#/Vol] <0.01 k/uL [facility] Nucleated RBC/100 WBC (Bld) [Ratio] 0.0 /100 WBC [facility] Platelet mean volume (Bld) [Entitic vol] 10.0 fL 9.0 - 12.7 fL [facility] Platelets (Bld) [#/Vol] 227 10*3/uL 150 - 400 k/uL [facility] RBC (Bld) [#/Vol] 3.54 10*6/uL Low 4.20 - 6.0 0 m/uL [facility] WBC (Bld) [#/Vol] 8.32 10*3/uL 3.70 - 11.00 k/uL [facility] Comprehensive metabolic 2000 panelon 04-16-2023 Albumin [Mass/Vol] 3.8 g/dL Low 3.9 - 4.9 g/dL [facility] ALP [Catalytic activity/Vol] 88 U/L 38 - 113 U/L [facility] ALT [Catalytic activity/Vol] 11 U/L 10 - 54 U/L [facility] Anion gap [Moles/Vol] 11 mmol/L 9 - 18 mmol/L [facility] AST [Catalytic activity/Vol] 16 U/L 14 - 40 U/L [facility] Bilirubin [Mass/Vol] 0.4 mg/dL 0.2 - 1 .3 mg/dL [facility] Calcium [Mass/Vol] 9.5 mg/dL 8.5 - 10. 2 mg/dL [facility] Chloride [Moles/Vol] 107 mmol/L High 97 - 10 5 mmol/L [facility] CO2 [Moles/Vol] 25 mmol/L 22 - 30 mmol/L [facility] Creatinine [Mass/Vol] 1.10 mg/dL 0.73 - 1.22 mg/dL [facility] Estimated Glomerular Filtration Rate 72 mL/min/1.73m >=60 mL/min/1.73 m [facility] Glucose [Mass/Vol] 126 mg/dL High 74 - 99 mg/dL [facility] Potassium [Moles/Vol] 3.2 mmol/L Low 3.7 - 5.1 mmol/L [facility] Protein [Mass/Vol] 6.2 g/dL Low 6.3 - 8.0 g/dL [facility] Sodium [Moles/Vol] 143 mmol/L 136 - 144 mmol/L [facility] Urea nitrogen [Mass/Vol] 22 mg/dL 9 - 24 mg/dL [facility] XR cerv spine AP/LAT/FLX/EXT on 04-11-2023 XR cerv spine AP/LAT/FLX/EXT [facility] [place] [address] XRay Report Signed Patient: Mervat Grayson MR#: [id number] : 1950 Acct:[id number] Age/Sex: 72 / M ADM Date: 04/11/23 Loc: XD Room: Type: [facility] Attending Dr: Valencia ONEAL Copies to: JM Godoy Ordering Provider: JM Godoy Date of Service: 04/11/23 XR/XR hips BI 4V adult: M54.12 ([id number]) XR/XR cerv spine AP/LAT/FLX/EXT: M54.12 CLINICAL HISTORY: [...] Viola Santiago M.D.04/11/2023 11:02 AM Dictation Location: [place] [address] Transcribed By: [facility] 04/11/23 1102 Dictated By: Viola Santiago MD 04/11/23 1054 Signed By: 04/11/23 1102 [facility] SURGICAL PATHOLOGYon 023 Case Report Surgical Pathology Report Case: [id number] Authorizing Provider: Deborah Norman MD Collected: 04/09/2023 01:00 PM Ordering Location: Procedures Received: 04/09/2023 02:35 PM Pathologist: Aries Lynch MD Specimen: ANAL CANAL BIOPSY, polyp [facility] FINAL DIAGNOSIS A. Anal canal, polyp , biopsy: - Squamous mucosa polyp. [facility] Gross Description A. ANAL CANAL BIOPSY Received in formalin is one satnos-martínez polypoid segment of tissue measuring 0.3 x 0.3 x 0.2 cm. No stalk is present. The line of resection is noted. The specimen is not sectioned and totally submitted in one cassette. Gross examination performed at [facility], [facility] [place] [address] JT 04/09/2023 7:48 PM [facility] Performing Lab Diagnostic interpretation performed at [facility], [address]# [id number] [employer] Grinder: Aries Lynch M.D. [facility] COLONOSCOPY DIAGNOSTICon [facility] CBC W Auto Differential pane l (Bld)on 03-19-2023 Basophils (Bld) [#/Vol] 0.03 10*3/uL <0.11 k/uL [facility] Basophils/100 WBC (Bld) 0.4 % [facility] Differential cell count method Nom (Bld) Auto [facility] Eosinophils (Bld) [#/Vol] 0.23 10*3/uL <0.46 k/uL [facility] Eosinophils/100 WBC (Bld) 2.8 % [facility] Erythrocyte distribution width (RBC) [Ratio] 16.1 % High 11.5 - 15.0 % [facility] Hematocrit (Bld) [Volume fraction] 35.0 % Low 39.0 - 51.0 % [facility] Hemoglobin (Bld) [Mass/Vol] 11.6 g/dL Low 13.0 - 17.0 g/dL [facility] Immature granulocytes (Bld) [#/Vol] 0.03 10*3/uL <0.10 k/uL [facility] Immature granulocytes/100 WBC (Bld) 0.4 % [facility] Lymphocytes (Bld) [#/Vol] 0.65 10*3/uL Low 1.00 - 4.00 k/uL [facility] Lymphocytes/100 WBC (Bld) 7.9 % [facility] MCH (RBC) [Entitic mass] 33.5 pg 26.0 - 34.0 pg [facility] MCHC (RBC) [Mass/Vol] 33.1 g/dL 30.5 - 36.0 g/dL [facility] MCV (RBC) [Entitic vol] 101.2 fL High 80.0 - 100.0 fL [facility] Monocytes (Bld) [#/Vol] 1.41 10*3/uL High <0.87 k/uL [facility] Monocytes/100 WBC (Bld) 17.2 % [facility] Neutrophils (Bld) [#/Vol] 5.84 10*3/uL 1.45 - 7.50 k/uL [facility] Neutrophils/100 WBC (Bld) 71.3 % [facility] Nucleated RBC (Bld) [#/Vol] <0.01 k/uL [facility] Nucleated RBC/100 WBC (Bld) [Ratio] 0.0 /100 WBC [facility] Platelet mean volume (Bld) [Entitic vol] 9.4 fL 9.0 - 12.7 fL [facility] Platelets (Bld) [#/Vol] 171 10*3/uL 150 - 400 k/uL [facility] RBC (Bld) [#/Vol] 3.46 10*6/uL Low 4.20 - 6.0 0 m/uL [facility] WBC (Bld) [#/Vol] 8.19 10*3/uL 3.70 - 11.00 k/uL [facility] Comprehensive metabolic 2000 panelon 03-19-2023 Albumin [Mass/Vol] 3.6 g/dL Low 3.9 - 4.9 g/dL [facility] ALP [Catalytic activity/Vol] 98 U/L 38 - 113 U/L [facility] ALT [Catalytic activity/Vol] 10 U/L 10 - 54 U/L [facility] Anion gap [Moles/Vol] 10 mmol/L 9 - 18 mmol/L [facility] AST [Catalytic activity/Vol] 18 U/L 14 - 40 U/L [facility] Bilirubin [Mass/Vol] 0.5 mg/dL 0.2 - 1 .3 mg/dL [facility] Calcium [Mass/Vol] 9.3 mg/dL 8.5 - 10. 2 mg/dL [facility] Chloride [Moles/Vol] 102 mmol/L 97 - 10 5 mmol/L [facility] CO2 [Moles/Vol] 26 mmol/L 22 - 30 mmol/L [facility] Creatinine [Mass/Vol] 1.18 mg/dL 0.73 - 1.22 mg/dL [facility] Estimated Glomerular Filtration Rate 66 mL/min/1.73m >=60 mL/min/1.73 m [facility] Glucose [Mass/Vol] 123 mg/dL High 74 - 99 mg/dL [facility] Potassium [Moles/Vol] 3.6 mmol/L Low 3.7 - 5.1 mmol/L [facility] Protein [Mass/Vol] 6.2 g/dL Low 6.3 - 8.0 g/dL [facility] Sodium [Moles/Vol] 138 mmol/L 136 - 144 mmol/L [facility] Urea nitrogen [Mass/Vol] 20 mg/dL 9 - 24 mg/dL [facility] CBC W Auto Differential pane l (Bld)on 02-19-2023 Basophils (Bld) [#/Vol] 0.03 10*3/uL <0.11 k/uL [facility] Basophils/100 WBC (Bld) 0.5 % [facility] Differential cell count method Nom (Bld) Auto [facility] Eosinophils (Bld) [#/Vol] 0.13 10*3/uL <0.46 k/uL [facility] Eosinophils/100 WBC (Bld) 2.1 % [facility] Erythrocyte distribution width (RBC) [Ratio] 15.8 % High 11.5 - 15.0 % [facility] Hematocrit (Bld) [Volume fraction] 35.5 % Low 39.0 - 51.0 % [facility] Hemoglobin (Bld) [Mass/Vol] 11.8 g/dL Low 13.0 - 17.0 g/dL [facility] Immature granulocytes (Bld) [#/Vol] 0.03 10*3/uL <0.10 k/uL [facility] Immature granulocytes/100 WBC (Bld) 0.5 % [facility] Lymphocytes (Bld) [#/Vol] 0.67 10*3/uL Low 1.00 - 4.00 k/uL [facility] Lymphocytes/100 WBC (Bld) 10.8 % [facility] MCH (RBC) [Entitic mass] 34.0 pg 26.0 - 34.0 pg [facility] MCHC (RBC) [Mass/Vol] 33.2 g/dL 30.5 - 36.0 g/dL [facility] MCV (RBC) [Entitic vol] 102.3 fL High 80.0 - 100.0 fL [facility] Monocytes (Bld) [#/Vol] 0.95 10*3/uL High <0.87 k/uL [facility] Monocytes/100 WBC (Bld) 15.3 % [facility] Neutrophils (Bld) [#/Vol] 4.40 10*3/uL 1.45 - 7.50 k/uL [facility] Neutrophils/100 WBC (Bld) 70.8 % [facility] Nucleated RBC (Bld) [#/Vol] <0.01 k/uL [facility] Nucleated RBC/100 WBC (Bld) [Ratio] 0.0 /100 WBC [facility] Platelet mean volume (Bld) [Entitic vol] 9.6 fL 9.0 - 12.7 fL [facility] Platelets (Bld) [#/Vol] 186 10*3/uL 150 - 400 k/uL [facility] RBC (Bld) [#/Vol] 3.47 10*6/uL Low 4.20 - 6.0 0 m/uL [facility] WBC (Bld) [#/Vol] 6.21 10*3/uL 3.70 - 11.00 k/uL [facility] Comprehensive metabolic 2000 panelon 02-19-2023 Albumin [Mass/Vol] 3.6 g/dL Low 3.9 - 4.9 g/dL [facility] ALP [Catalytic activity/Vol] 118 U/L High 38 - 113 U/L [facility] ALT [Catalytic activity/Vol] 10 U/L 10 - 54 U/L [facility] Anion gap [Moles/Vol] 7 mmol/L Low 9 - 18 mmol/L [facility] AST [Catalytic activity/Vol] 14 U/L 14 - 40 U/L [facility] Bilirubin [Mass/Vol] 0.4 mg/dL 0.2 - 1 .3 mg/dL [facility] Calcium [Mass/Vol] 9.2 mg/dL 8.5 - 10. 2 mg/dL [facility] Chloride [Moles/Vol] 105 mmol/L 97 - 10 5 mmol/L [facility] CO2 [Moles/Vol] 28 mmol/L 22 - 30 mmol/L [facility] Creatinine [Mass/Vol] 1.11 mg/dL 0.73 - 1.22 mg/dL [facility] Estimated Glomerular Filtration Rate 71 mL/min/1.73m >=60 mL/min/1.73 m [facility] Glucose [Mass/Vol] 89 mg/dL 74 - 99 mg/dL [facility] Potassium [Moles/Vol] 3.9 mmol/L 3.7 - 5.1 mmol/L [facility] Protein [Mass/Vol] 6.0 g/dL Low 6.3 - 8.0 g/dL [facility] Sodium [Moles/Vol] 140 mmol/L 136 - 144 mmol/L [facility] Urea nitrogen [Mass/Vol] 14 mg/dL 9 - 24 mg/dL [facility] Basic metabolic 2000 panelon 01-08-2023 Anion gap [Moles/Vol] 11 mmol/L 9 - 18 mmol/L [facility] Calcium [Mass/Vol] 9.3 mg/dL 8.5 - 10. 2 mg/dL [facility] Chloride [Moles/Vol] 106 mmol/L High 97 - 10 5 mmol/L [facility] CO2 [Moles/Vol] 25 mmol/L 22 - 30 mmol/L [facility] Creatinine [Mass/Vol] 1.12 mg/dL 0.73 - 1.22 mg/dL [facility] Estimated Glomerular Filtration Rate 71 mL/min/1.73m >=60 mL/min/1.73 m [facility] Glucose [Mass/Vol] 118 mg/dL High 74 - 99 mg/dL [facility] Potassium [Moles/Vol] 3.9 mmol/L 3.7 - 5.1 mmol/L [facility] Sodium [Moles/Vol] 142 mmol/L 136 - 144 mmol/L [facility] Urea nitrogen [Mass/Vol] 18 mg/dL 9 - 24 mg/dL [facility] CBC W Auto Differential pane l (Bld)on 01-08-2023 Basophils (Bld) [#/Vol] 0.06 10*3/uL <0.11 k/uL [facility] Basophils/100 WBC (Bld) 0.8 % [facility] Differential cell count method Nom (Bld) Auto [facility] Eosinophils (Bld) [#/Vol] 0.33 10*3/uL <0.46 k/uL [facility] Eosinophils/100 WBC (Bld) 4.3 % [facility] Erythrocyte distribution width (RBC) [Ratio] 16.3 % High 11.5 - 15.0 % [facility] Hematocrit (Bld) [Volume fraction] 36.0 % Low 39.0 - 51.0 % [facility] Hemoglobin (Bld) [Mass/Vol] 11.9 g/dL Low 13.0 - 17.0 g/dL [facility] Immature granulocytes (Bld) [#/Vol] 0.03 10*3/uL <0.10 k/uL [facility] Immature granulocytes/100 WBC (Bld) 0.4 % [facility] Lymphocytes (Bld) [#/Vol] 0.71 10*3/uL Low 1.00 - 4.00 k/uL [facility] Lymphocytes/100 WBC (Bld) 9.3 % [facility] MCH (RBC) [Entitic mass] 33.4 pg 26.0 - 34.0 pg [facility] MCHC (RBC) [Mass/Vol] 33.1 g/dL 30.5 - 36.0 g/dL [facility] MCV (RBC) [Entitic vol] 101.1 fL High 80.0 - 100.0 fL [facility] Monocytes (Bld) [#/Vol] 0.74 10*3/uL <0.87 k/uL [facility] Monocytes/100 WBC (Bld) 9.7 % [facility] Neutrophils (Bld) [#/Vol] 5.76 10*3/uL 1.45 - 7.50 k/uL [facility] Neutrophils/100 WBC (Bld) 75.5 % [facility] Nucleated RBC (Bld) [#/Vol] <0.01 k/uL [facility] Nucleated RBC/100 WBC (Bld) [Ratio] 0.0 /100 WBC [facility] Platelet mean volume (Bld) [Entitic vol] 10.1 fL 9.0 - 12.7 fL [facility] Platelets (Bld) [#/Vol] 176 10*3/uL 150 - 400 k/uL [facility] RBC (Bld) [#/Vol] 3.56 10*6/uL Low 4.20 - 6.0 0 m/uL [facility] WBC (Bld) [#/Vol] 7.63 10*3/uL 3.70 - 11.00 k/uL [facility] CBC W Auto Differential pane l (Bld)on 12-25-2022 Basophils (Bld) [#/Vol] 0.06 10*3/uL <0.11 k/uL [facility] Basophils/100 WBC (Bld) 0.9 % [facility] Differential cell count method Nom (Bld) Auto [facility] Eosinophils (Bld) [#/Vol] 0.25 10*3/uL <0.46 k/uL [facility] Eosinophils/100 WBC (Bld) 3.6 % [facility] Erythrocyte distribution width (RBC) [Ratio] 17.8 % High 11.5 - 15.0 % [facility] Hematocrit (Bld) [Volume fraction] 39.4 % 39.0 - 51.0 % [facility] Hemoglobin (Bld) [Mass/Vol] 13.2 g/dL 13.0 - 17.0 g/dL [facility] Immature granulocytes (Bld) [#/Vol] 0.05 10*3/uL <0.10 k/uL [facility] Immature granulocytes/100 WBC (Bld) 0.7 % [facility] Lymphocytes (Bld) [#/Vol] 0.83 10*3/uL Low 1.00 - 4.00 k/uL [facility] Lymphocytes/100 WBC (Bld) 11.9 % [facility] MCH (RBC) [Entitic mass] 33.8 pg 26.0 - 34.0 pg [facility] MCHC (RBC) [Mass/Vol] 33.5 g/dL 30.5 - 36.0 g/dL [facility] MCV (RBC) [Entitic vol] 100.8 fL High 80.0 - 100.0 fL [facility] Monocytes (Bld) [#/Vol] 0.74 10*3/uL <0.87 k/uL [facility] Monocytes/100 WBC (Bld) 10.6 % [facility] Neutrophils (Bld) [#/Vol] 5.03 10*3/uL 1.45 - 7.50 k/uL [facility] Neutrophils/100 WBC (Bld) 72.3 % [facility] Nucleated RBC (Bld) [#/Vol] <0.01 k/uL [facility] Nucleated RBC/100 WBC (Bld) [Ratio] 0.0 /100 WBC [facility] Platelet mean volume (Bld) [Entitic vol] 10.0 fL 9.0 - 12.7 fL [facility] Platelets (Bld) [#/Vol] 163 10*3/uL 150 - 400 k/uL [facility] RBC (Bld) [#/Vol] 3.91 10*6/uL Low 4.20 - 6.0 0 m/uL [facility] WBC (Bld) [#/Vol] 6.96 10*3/uL 3.70 - 11.00 k/uL [facility] Comprehensive metabolic 2000 panelon 12-25-2022 Albumin [Mass/Vol] 4.1 g/dL 3.9 - 4.9 g/dL [facility] ALP [Catalytic activity/Vol] 83 U/L 38 - 113 U/L [facility] ALT [Catalytic activity/Vol] 7 U/L Low 10 - 54 U/L [facility] Anion gap [Moles/Vol] 10 mmol/L 9 - 18 mmol/L [facility] AST [Catalytic activity/Vol] 15 U/L 14 - 40 U/L [facility] Bilirubin [Mass/Vol] 0.5 mg/dL 0.2 - 1 .3 mg/dL [facility] Calcium [Mass/Vol] 9.6 mg/dL 8.5 - 10. 2 mg/dL [facility] Chloride [Moles/Vol] 105 mmol/L 97 - 10 5 mmol/L [facility] CO2 [Moles/Vol] 28 mmol/L 22 - 30 mmol/L [facility] Creatinine [Mass/Vol] 1.23 mg/dL High 0.73 - 1.22 mg/dL [facility] Estimated Glomerular Filtration Rate 63 mL/min/1.73m >=60 mL/min/1.73 m [facility] Glucose [Mass/Vol] 86 mg/dL 74 - 99 mg/dL [facility] Potassium [Moles/Vol] 4.0 mmol/L 3.7 - 5.1 mmol/L [facility] Protein [Mass/Vol] 6.2 g/dL Low 6.3 - 8.0 g/dL [facility] Sodium [Moles/Vol] 143 mmol/L 136 - 144 mmol/L [facility] Urea nitrogen [Mass/Vol] 21 mg/dL 9 - 24 mg/dL [facility] PT panel Coag (PPP)on 2022 INR Coag (PPP) [Relative time] 1.0 {INR} 0.9 - 1.3 [facility] PT Coag (PPP) [Time] 10.7 s 9.7 - 1 3.0 sec [facility] CEA BLDon 12-18-2022 Carcinoembryonic Ag [Mass/Vol] 1.7 ng/mL <=2.9 ng/mL [facility] CBC W Auto Differential pane l (Bld)on 12-17-2022 Basophils (Bld) [#/Vol] 0.04 10*3/uL <0.11 k/uL [facility] Basophils/100 WBC (Bld) 0.7 % [facility] Differential cell count method Nom (Bld) Auto [facility] Eosinophils (Bld) [#/Vol] 0.13 10*3/uL <0.46 k/uL [facility] Eosinophils/100 WBC (Bld) 2.2 % [facility] Erythrocyte distribution width (RBC) [Ratio] 18.9 % High 11.5 - 15.0 % [facility] Hematocrit (Bld) [Volume fraction] 38.5 % Low 39.0 - 51.0 % [facility] Hemoglobin (Bld) [Mass/Vol] 12.9 g/dL Low 13.0 - 17.0 g/dL [facility] Immature granulocytes (Bld) [#/Vol] 0.05 10*3/uL <0.10 k/uL [facility] Immature granulocytes/100 WBC (Bld) 0.9 % [facility] Lymphocytes (Bld) [#/Vol] 0.63 10*3/uL Low 1.00 - 4.00 k/uL [facility] Lymphocytes/100 WBC (Bld) 10.9 % [facility] MCH (RBC) [Entitic mass] 34.0 pg 26.0 - 34.0 pg [facility] MCHC (RBC) [Mass/Vol] 33.5 g/dL 30.5 - 36.0 g/dL [facility] MCV (RBC) [Entitic vol] 101.6 fL High 80.0 - 100.0 fL [facility] Monocytes (Bld) [#/Vol] 0.64 10*3/uL <0.87 k/uL [facility] Monocytes/100 WBC (Bld) 11.1 % [facility] Neutrophils (Bld) [#/Vol] 4.30 10*3/uL 1.45 - 7.50 k/uL [facility] Neutrophils/100 WBC (Bld) 74.2 % [facility] Nucleated RBC (Bld) [#/Vol] <0.01 k/uL [facility] Nucleated RBC/100 WBC (Bld) [Ratio] 0.0 /100 WBC [facility] Platelet mean volume (Bld) [Entitic vol] 10.2 fL 9.0 - 12.7 fL [facility] Platelets (Bld) [#/Vol] 200 10*3/uL 150 - 400 k/uL [facility] RBC (Bld) [#/Vol] 3.79 10*6/uL Low 4.20 - 6.0 0 m/uL [facility] WBC (Bld) [#/Vol] 5.79 10*3/uL 3.70 - 11.00 k/uL [facility] Comprehensive metabolic 2000 panelon 12-17-2022 Albumin [Mass/Vol] 4.0 g/dL 3.9 - 4.9 g/dL [facility] ALP [Catalytic activity/Vol] 79 U/L 38 - 113 U/L [facility] ALT [Catalytic activity/Vol] 8 U/L Low 10 - 54 U/L [facility] Anion gap [Moles/Vol] 5 mmol/L Low 9 - 18 mmol/L [facility] AST [Catalytic activity/Vol] 14 U/L 14 - 40 U/L [facility] Bilirubin [Mass/Vol] 0.4 mg/dL 0.2 - 1 .3 mg/dL [facility] Calcium [Mass/Vol] 9.1 mg/dL 8.5 - 10. 2 mg/dL [facility] Chloride [Moles/Vol] 107 mmol/L High 97 - 10 5 mmol/L [facility] CO2 [Moles/Vol] 28 mmol/L 22 - 30 mmol/L [facility] Creatinine [Mass/Vol] 1.22 mg/dL 0.73 - 1.22 mg/dL [facility] Estimated Glomerular Filtration Rate 64 mL/min/1.73m >=60 mL/min/1.73 m [facility] Glucose [Mass/Vol] 84 mg/dL 74 - 99 mg/dL [facility] Potassium [Moles/Vol] 4.0 mmol/L 3.7 - 5.1 mmol/L [facility] Protein [Mass/Vol] 6.2 g/dL Low 6.3 - 8.0 g/dL [facility] Sodium [Moles/Vol] 140 mmol/L 136 - 144 mmol/L [facility] Urea nitrogen [Mass/Vol] 19 mg/dL 9 - 24 mg/dL [facility] CT Abdomen and Pelvis W cont rast Ivelisse 02-20-2023 IMPRESSION: 1. No evidence of metastatic disease within the abdomen/pelvis. 2. The known rectal neoplasm is not well delineated on this exam. Circumferential urinary bladder wall thickening is likely secondary to treatment-related cystitis. 3. Diverticulosis coli, without associated inflammation. 4. Please refer to concurrently acquired and separately reported chest CT for findings related to the thorax. Transcribe Date/Time: Dec 10 2022 1:45P Dictated by: CHRIS KEE MD This examination was interpreted and the report reviewed and electronically signed by: CHRIS KEE MD on Dec 10 2022 2:11PM EST Thank you for allowing us to participate in the care of your patient. Should there be any questions regarding this interpretation, please call [phone]. If you are unable to reach us at the number above, please feel free to contact [facility] at [phone]. DIVISION OF RADIOLOGY * * *Final Report* * * DATE OF EXAM: Dec 10 2022 1:07PM [facility] 0530 - CT ABD/PEL W IVCON / PROCEDURE REASON: multiple diagnoses * * * * Physician Interpretation * * * * RESULT: EXAMINATION: CT ABDOMEN AND PELVIS WITH IV CONTRAST CLINICAL HISTORY: Rectal cancer TECHNIQUE: CT of the abdomen and pelvis was performed using standard technique, scanning from just above the dome of the diaphragm to the symphysis pubis. MQ: CTAP_3 Contrast: IV: 125 ml of Omnipaque 300 Oral: 500 ml of dilute Omnipaque 240 CT Radiation dose: Integrated Dose-length product (DLP) for this visit = 1185 mGy*cm. COMPARISON: PET/CT 09/25/2022; CT abdomen/pelvis 09/11/2022. MRI pelvis 09/09/2022. RESULT: Liver: Normal liver morphology. No suspicious hepatic mass. Biliary: No bile duct dilation. Gallstones are within a nondilated gallbladder. Spleen: No mass. No splenomegaly. Pancreas: No mass or duct dilation. Adrenals: No mass. Kidneys: Multiple bilateral renal parapelvic cysts. Bilateral nonobstructive renal stones measuring 0.3 cm at the right renal upper pole and 0.4 cm within the posterior interpolar left kidney. No hydronephrosis. GI tract: The bowel is normal in caliber and without evidence of wall thickening or obstruction. There are diffuse colonic diverticula, without associated inflammation. The appendix is normal. The known rectal neoplasm is not well delineated. Lymph nodes: No abdominal or pelvic lymphadenopathy. Mesentery/Peritoneum: No ascites or mass. Retroperitoneum: No mass. Vasculature: - Abdominal aorta and iliac arteries: No aneurysm. - Celiac and SMA: Patent without stenosis. - Portal venous system (SMV, splenic vein, portal vein and branches): Patent. - Hepatic veins: Patent. Pelvis: No ascites or fluid collection. The prostate is unremarkable. There is circumferential urinary bladder wall thickening, which may secondary to treatment-related cystitis. Bones/Soft Tissues: Degenerative changes involve the pelvis and lumbar spine. No destructive lytic or blastic osseous abnormality. Lower thorax: A chest CT performed will be reported separately. Baggagemaster (topogram) images: No additional findings. DIVISION OF RADIOLOGY Provider, [facility] - 12/10/2022 * * *Final Report* * * DATE OF EXAM: Dec 10 2022 1:07PM [facility] 0530 - CT ABD/PEL W IVCON / PROCEDURE REASON: multiple diagnoses * * * * Physician Interpretation * * * * RESULT: EXAMINATION: CT ABDOMEN AND PELVIS WITH IV CONTRAST CLINICAL HISTORY: Rectal cancer TECHNIQUE: CT of the abdomen and pelvis was performed using standard technique, scanning from just above the dome of the diaphragm to the symphysis pubis. MQ: CTAP_3 Contrast: IV: 125 ml of Omnipaque 300 Oral: 500 ml of dilute Omnipaque 240 CT Radiation dose: Integrated Dose-length product (DLP) for this visit = 1185 mGy*cm. COMPARISON: PET/CT 09/25/2022; CT abdomen/pelvis 09/11/2022. MRI pelvis 09/09/2022. RESULT: Liver: Normal liver morphology. No suspicious hepatic mass. Biliary: No bile duct dilation. Gallstones are within a nondilated gallbladder. Spleen: No mass. No splenomegaly. Pancreas: No mass or duct dilation. Adrenals: No mass. Kidneys: Multiple bilateral renal parapelvic cysts. Bilateral nonobstructive renal stones measuring 0.3 cm at the right renal upper pole and 0.4 cm within the posterior interpolar left kidney. No hydronephrosis. GI tract: The bowel is normal in caliber and without evidence of wall thickening or obstruction. There are diffuse colonic diverticula, without associated inflammation. The appendix is normal. The known rectal neoplasm is not well delineated. Lymph nodes: No abdominal or pelvic lymphadenopathy. Mesentery/Peritoneum: No ascites or mass. Retroperitoneum: No mass. Vasculature: - Abdominal aorta and iliac arteries: No aneurysm. - Celiac and SMA: Patent without stenosis. - Portal venous system (SMV, splenic vein, portal vein and branches): Patent. - Hepatic veins: Patent. Pelvis: No ascites or fluid collection. The prostate is unremarkable. There is circumferential urinary bladder wall thickening, which may secondary to treatment-related cystitis. Bones/Soft Tissues: Degenerative changes involve the pelvis and lumbar spine. No destructive lytic or blastic osseous abnormality. Lower thorax: A chest CT performed will be reported separately. Baggagemaster (topogram) images: No additional findings. IMPRESSION IMPRESSION: 1. No evidence of metastatic disease within the abdomen/pelvis. 2. The known rectal neoplasm is not well delineated on this exam. Circumferential urinary bladder wall thickening is likely secondary to treatment-related cystitis. 3. Diverticulosis coli, without associated inflammation. 4. Please refer to concurrently acquired and separately reported chest CT for findings related to the thorax. Transcribe Date/Time: Dec 10 2022 1:45P Dictated by: CHRIS KEE MD This examination was interpreted and the report reviewed and electronically signed by: CHRIS KEE MD on Dec 10 2022 2:11PM EST Thank you for allowing us to participate in the care of your patient. Should there be any questions regarding this interpretation, please call [phone]. If you are unable to reach us at the number above, please feel free to contact [facility] at [phone]. [facility] CT Abdomen and Pelvis W cont rast IVOrdered By: [facility] Provider on 12-10-[address] [facility] [address] Chest W contrast Ivelisse IMPRESSION: 1. Multiple indeterminate noncalcified pulmonary nodules measuring up to 1 cm are unchanged since 09/11/2022. No enlarging nodule is identified. 2. Unchanged enlarged mediastinal lymph nodes. 3. Please refer to concurrently acquired and separately reported abdomen CT for findings related to the upper abdomen. Transcribe Date/Time: Dec 10 2022 1:57P Dictated by: CHRIS KEE MD This examination was interpreted and the report reviewed and electronically signed by: CHRIS KEE MD on Dec 10 2022 2:10PM EST Thank you for allowing us to participate in the care of your patient. Should there be any questions regarding this interpretation, please call [phone]. If you are unable to reach us at the number above, please feel free to contact [facility] at [phone]. DIVISION OF RADIOLOGY * * *Final Report* * * DATE OF EXAM: Dec 10 2022 1:07PM [facility] 0539 - CT CHEST W IVCON / PROCEDURE REASON: Lung nodules * * * * Physician Interpretation * * * * RESULT: EXAMINATION: CHEST CT WITH CONTRAST CLINICAL HISTORY: Rectal cancer Technique: Spiral CT acquisition of the chest from the thoracic inlet to the upper abdomen following IV contrast. MQ: CTCW_6 Contrast: 125 mL Omnipaque [address] Radiation dose: Integrated Dose-length product (DLP) for this visit = 1456 mGy*cm CT Dose Reduction Employed: Automated exposure control (AEC) Comparison: PET/CT 09/25/2022; CT chest 09/11/2022. RESULT: Limitations: None. Lines, tubes, and devices: None. Lung parenchyma and airways: There is mild dependent subsegmental atelectasis within the lower lobes and lingula. No dense airspace consolidation is identified. The central tracheobronchial tree is patent. Again noted are scattered noncalcified pulmonary nodules, with medical device sales representative larger examples detailed as follows on series 4: - Image 52, right upper lobe, 0.5 cm (unchanged) -Image 69, right upper lobe, 1 cm (unchanged) -Image 68, right upper lobe subpleural, 0.4 cm (unchanged) -Image 100, right middle lobe, 0.5 cm (unchanged) -Image 101, right lower lobe, 0.4 cm (unchanged) -Image 82, left upper lobe, 0.5 cm (unchanged) No enlarging nodule is identified. Pleural space: No pleural effusion. No pleural thickening. Lower neck, lymph nodes, and mediastinum: The imaged thyroid is unremarkable. There is no supraclavicular or axillary lymphadenopathy. Calcified subcarinal lymph nodes are likely sequela of prior granulomatous disease. There are enlarged noncalcified lymph nodes, with medical device sales representative examples detailed as follows on series 3: -Image 68, prevascular, 1.2 cm in short axis (previously 1.2 cm) -Image 75, anterior precarinal, 1 cm (unchanged) Heart, pericardium, and thoracic vessels: The thoracic aorta and main pulmonary artery are normal in caliber. The cardiac chambers are normal in size. No coronary artery atherosclerotic calcifications are noted, although the study is not optimized for coronary assessment. No pericardial effusion or thickening. Bones and soft tissues: Degenerative changes involve the thoracic spine. No destructive lytic or blastic osseous abnormality. Upper abdomen: Please refer to concurrently acquired and separately reported abdomen CT for findings related to the upper abdomen. Baggagemaster (topogram) images: No additional findings. DIVISION OF RADIOLOGY Provider, [facility] - 12/10/2022 * * *Final Report* * * DATE OF EXAM: Dec 10 2022 1:07PM [facility] 0539 - CT CHEST W IVCON / PROCEDURE REASON: Lung nodules * * * * Physician Interpretation * * * * RESULT: EXAMINATION: CHEST CT WITH CONTRAST CLINICAL HISTORY: Rectal cancer Technique: Spiral CT acquisition of the chest from the thoracic inlet to the upper abdomen following IV contrast. MQ: [id number] Contrast: 125 mL Omnipaque [address] Radiation dose: Integrated Dose-length product (DLP) for this visit = 1456 mGy*cm CT Dose Reduction Employed: Automated exposure control (AEC) Comparison: PET/CT 09/25/2022; CT chest 09/11/2022. RESULT: Limitations: None. Lines, tubes, and devices: None. Lung parenchyma and airways: There is mild dependent subsegmental atelectasis within the lower lobes and lingula. No dense airspace consolidation is identified. The central tracheobronchial tree is patent. Again noted are scattered noncalcified pulmonary nodules, with medical device sales representative larger examples detailed as follows on series 4: - Image 52, right upper lobe, 0.5 cm (unchanged) -Image 69, right upper lobe, 1 cm (unchanged) -Image 68, right upper lobe subpleural, 0.4 cm (unchanged) -Image 100, right middle lobe, 0.5 cm (unchanged) -Image 101, right lower lobe, 0.4 cm (unchanged) -Image 82, left upper lobe, 0.5 cm (unchanged) No enlarging nodule is identified. Pleural space: No pleural effusion. No pleural thickening. Lower neck, lymph nodes, and mediastinum: The imaged thyroid is unremarkable. There is no supraclavicular or axillary lymphadenopathy. Calcified subcarinal lymph nodes are likely sequela of prior granulomatous disease. There are enlarged noncalcified lymph nodes, with medical device sales representative examples detailed as follows on series 3: -Image 68, prevascular, 1.2 cm in short axis (previously 1.2 cm) -Image 75, anterior precarinal, 1 cm (unchanged) Heart, pericardium, and thoracic vessels: The thoracic aorta and main pulmonary artery are normal in caliber. The cardiac chambers are normal in size. No coronary artery atherosclerotic calcifications are noted, although the study is not optimized for coronary assessment. No pericardial effusion or thickening. Bones and soft tissues: Degenerative changes involve the thoracic spine. No destructive lytic or blastic osseous abnormality. Upper abdomen: Please refer to concurrently acquired and separately reported abdomen CT for findings related to the upper abdomen. Baggagemaster (topogram) images: No additional findings. IMPRESSION IMPRESSION: 1. Multiple indeterminate noncalcified pulmonary nodules measuring up to 1 cm are unchanged since 09/11/2022. No enlarging nodule is identified. 2. Unchanged enlarged mediastinal lymph nodes. 3. Please refer to concurrently acquired and separately reported abdomen CT for findings related to the upper abdomen. Transcribe Date/Time: Dec 10 2022 1:57P Dictated by: CHRIS KEE MD This examination was interpreted and the report reviewed and electronically signed by: CHRIS KEE MD on Dec 10 2022 2:10PM EST Thank you for allowing us to participate in the care of your patient. Should there be any questions regarding this interpretation, please call [phone]. If you are unable to reach us at the number above, please feel free to contact [facility] eRadiology at [phone]. [facility] No Panel Informationon 12-10 Radiology Study observation (narrative) [facility] CHEMISTRYOrdered By: SYSTEM SYSTEM on 11-16-2022 Albumin [Mass/Vol] 3.9 g/dL Normal 3.3 - 5.0 gm/dL [facility] Remisol Albumin/Globulin [Mass ratio] 1.7 {ratio} Normal [...] mL/min/1.73 m2 Normal >=59mL/min/ 1.73 m2 [facility] Chem S GFR/1.73 sq M.predicted among non-blacks MDRD (S/P/Bld) [Vol rate/Area] 50 mL/min/1.73 m2 Low >=59mL/min/ 1.73 m2 [facility] Chem S Globulin (S) [Mass/Vol] 2.3 g/dL [...] 17 mg/dL Normal 5 - 21 mg/dL FT Remisol Urea nitrogen/Creatinine [Mass ratio] 12 mg/mg Normal 10 - 20 [facility] HEMATOLOGYOrdered By: Sonam Aponte on 11-16-2022 Erythrocyte distribution width (RBC) [Ratio] 18.5 % High 10.9 - 14.2 % FT HemeAutoSS Hematocrit (Bld) [Volume fraction] 39.8 % Normal 37.7 - 49.0 % FT HemeAutoSS Hemoglobin (Bld) [Mass/Vol] 13.0 g/dL Low 13.5 - 17.5 gm/dL FT HemeAutoSS MCH (RBC) [Entitic mass] 32.3 pg Normal 27.0 - 34.0 pg FT HemeAutoSS MCHC (RBC) [Mass/Vol] 32.6 g/dL Normal 31.4 - 36.0 gm/dL FT HemeAutoSS MCV (RBC) [Entitic vol] 99.3 fL Normal 80.0 - 100.0 fL FT HemeAutoSS Platelet mean volume (Bld) [Entitic vol] 8.3 fL Normal 6.4 - 10.8 fL [facility] HemeAutoSS Platelets (Bld) [#/Vol] 178.0 E9/L Normal 150.0 - 500.0 E9/L FT HemeAutoSS RBC (Bld) [#/Vol] 4.0 E12/L Low 4.3 - 5.9 E12/L FT HemeAutoSS Sed Rate Automated 8 mm/h Normal 0 - 19 mm/hr FT HemeAutoSS WBC corrected for nucl RBC Auto (Bld) [#/Vol] 6.4 E9/L Normal 4.0 - 11.0 E9/L FT HemeAutoSS CBC W Auto Differential pane l (Bld)on 11-08-2022 Basophils (Bld) [#/Vol] 0.04 10*3/uL <0.11 k/uL [facility] Basophils/100 WBC (Bld) 0.7 % [facility] Differential cell count method Nom (Bld) Auto [facility] Eosinophils (Bld) [#/Vol] 0.18 10*3/uL <0.46 k/uL [facility] Eosinophils/100 WBC (Bld) 3.1 % [facility] Erythrocyte distribution width (RBC) [Ratio] 17.3 % High 11.5 - 15.0 % [facility] Hematocrit (Bld) [Volume fraction] 36.9 % Low 39.0 - 51.0 % [facility] Hemoglobin (Bld) [Mass/Vol] 12.3 g/dL Low 13.0 - 17.0 g/dL [facility] Immature granulocytes (Bld) [#/Vol] 0.04 10*3/uL <0.10 k/uL [facility] Immature granulocytes/100 WBC (Bld) 0.7 % [facility] Lymphocytes (Bld) [#/Vol] 0.34 10*3/uL Low 1.00 - 4.00 k/uL [facility] Lymphocytes/100 WBC (Bld) 5.9 % [facility] MCH (RBC) [Entitic mass] 32.5 pg 26.0 - 34.0 pg [facility] MCHC (RBC) [Mass/Vol] 33.3 g/dL 30.5 - 36.0 g/dL [facility] MCV (RBC) [Entitic vol] 97.4 fL 80.0 - 100.0 fL [facility] Monocytes (Bld) [#/Vol] 0.55 10*3/uL <0.87 k/uL [facility] Monocytes/100 WBC (Bld) 9.5 % [facility] Neutrophils (Bld) [#/Vol] 4.62 10*3/uL 1.45 - 7.50 k/uL [facility] Neutrophils/100 WBC (Bld) 80.1 % [facility] Nucleated RBC (Bld) [#/Vol] <0.01 k/uL [facility] Nucleated RBC/100 WBC (Bld) [Ratio] 0.0 /100 WBC [facility] Platelet mean volume (Bld) [Entitic vol] 9.3 fL 9.0 - 12.7 fL [facility] Platelets (Bld) [#/Vol] 157 10*3/uL 150 - 400 k/uL [facility] RBC (Bld) [#/Vol] 3.79 10*6/uL Low 4.20 - 6.0 0 m/uL [facility] WBC (Bld) [#/Vol] 5.77 10*3/uL 3.70 - 11.00 k/uL [facility] CBC W Auto Differential pane l (Bld)on 10-11-2022 Basophils (Bld) [#/Vol] <0.11 k/uL [facility] Basophils/100 WBC (Bld) 0.1 % [facility] Differential cell count method Nom (Bld) Auto [facility] Eosinophils (Bld) [#/Vol] <0.46 k/uL [facility] Eosinophils/100 WBC (Bld) 0.0 % [facility] Erythrocyte distribution width (RBC) [Ratio] 15.5 % High 11.5 - 15.0 % [facility] Hematocrit (Bld) [Volume fraction] 42.6 % 39.0 - 51.0 % [facility] Hemoglobin (Bld) [Mass/Vol] 14.0 g/dL 13.0 - 17.0 g/dL [facility] Immature granulocytes (Bld) [#/Vol] 0.12 10*3/uL High <0.10 k/uL [facility] Immature granulocytes/100 WBC (Bld) 0.6 % [facility] Lymphocytes (Bld) [#/Vol] 0.82 10*3/uL Low 1.00 - 4.00 k/uL [facility] Lymphocytes/100 WBC (Bld) 4.0 % [facility] MCH (RBC) [Entitic mass] 31.0 pg 26.0 - 34.0 pg [facility] MCHC (RBC) [Mass/Vol] 32.9 g/dL 30.5 - 36.0 g/dL [facility] MCV (RBC) [Entitic vol] 94.5 fL 80.0 - 100.0 fL [facility] Monocytes (Bld) [#/Vol] 1.01 10*3/uL High <0.87 k/uL [facility] Monocytes/100 WBC (Bld) 4.9 % [facility] Neutrophils (Bld) [#/Vol] 18.55 10*3/uL High 1.45 - 7.50 k/uL [facility] Neutrophils/100 WBC (Bld) 90.4 % [facility] Nucleated RBC (Bld) [#/Vol] <0.01 k/uL [facility] Nucleated RBC/100 WBC (Bld) [Ratio] 0.0 /100 WBC [facility] Platelet mean volume (Bld) [Entitic vol] 10.9 fL 9.0 - 12.7 fL [facility] Platelets (Bld) [#/Vol] 207 10*3/uL 150 - 400 k/uL [facility] RBC (Bld) [#/Vol] 4.51 10*6/uL 4.20 - 6.0 0 m/uL [facility] WBC (Bld) [#/Vol] 20.52 10*3/uL High 3.70 - 11.00 k/uL [facility] Comprehensive metabolic 2000 panelon 10-11-2022 Albumin [Mass/Vol] 3.9 g/dL 3.9 - 4.9 g/dL [facility] ALP [Catalytic activity/Vol] 80 U/L 38 - 113 U/L [facility] ALT [Catalytic activity/Vol] 10 U/L 10 - 54 U/L [facility] Anion gap [Moles/Vol] 11 mmol/L 9 - 18 mmol/L [facility] AST [Catalytic activity/Vol] 11 U/L Low 14 - 40 U/L [facility] Bilirubin [Mass/Vol] 1.0 mg/dL 0.2 - 1 .3 mg/dL [facility] Calcium [Mass/Vol] 9.5 mg/dL 8.5 - 10. 2 mg/dL [facility] Chloride [Moles/Vol] 104 mmol/L 97 - 10 5 mmol/L [facility] CO2 [Moles/Vol] 26 mmol/L 22 - 30 mmol/L [facility] Creatinine [Mass/Vol] 1.50 mg/dL High 0.73 - 1.22 mg/dL [facility] Estimated Glomerular Filtration Rate 50 mL/min/1.73m Low >=60 mL/min/1.73 m [facility] Glucose [Mass/Vol] 136 mg/dL High 74 - 99 mg/dL [facility] Potassium [Moles/Vol] 4.3 mmol/L 3.7 - 5.1 mmol/L [facility] Protein [Mass/Vol] 6.1 g/dL Low 6.3 - 8.0 g/dL [facility] Sodium [Moles/Vol] 141 mmol/L 136 - 144 mmol/L [facility] Urea nitrogen [Mass/Vol] 30 mg/dL High 9 - 24 mg/dL [facility] MR abdomen wo/w conon 2021 MR abdomen wo/w con [address] [address] MRI Report Signed Patient: Mervat Grayson MR#: [id number] : 1950 Acct:[id number] Age/Sex: 71 / M ADM Date: 10/01/22 Loc: Room: Type: [facility] Attending Dr: Minerva Anderson MD Copies to: [...] Houser Jr., D.O.10/02/2022 10:33 AM Dictation Location: [place] [address] Transcribed By: [facility] 10/02/22 1033 Dictated By: Hang Houser Jr, DO 10/02/22 0923 Signed By: 10/02/22 1033 [facility] Creatinine (Bld) [Mass/Vol]O rdered By: Mienrva Anderson on 10-01-2022 Creatinine [Mass/Vol] 1.2 mg/dL 0.6-1.3 [facility] Comment on above: ER/ESD physician is notified/shown all ISTAT results.Critical values may be confirmed by laboratory testing ifdeemed necessary by ER attending doctor. ISTAT XRay CREon 10-01-2022 Creatinine [Mass/Vol] 1.2 mg/dL Normal 0.6-1.3 [facility] Comment on above: Result Comment: ER/E SD physician is notified/shown all ISTAT results. Critical values may be confirmed by laboratory testing if deemed necessary by ER attending doctor. Performed By: #### I SCRE #### [facility] [address] Point of Care testing , ISTAT GFR ( > 60 Normal [facility] Comment on above: Result Comment: GFR estimated reference range: According to KDOQI guidelines, <60 ml/min/1.73m2 is sufficient to diagnose a patient with chronic kidney disease. PERFORMED BY: [place] [address] PATHOLOGIST LITIGATION CLAIM REPRESENTATIVE YONG HANKINS M.D. Performed By: #### I SCRE #### [facility] [address] Point of Care testing , ISTAT GFR (Non- Am 60 Normal [facility] Comment on above: Performed By: #### I SCRE #### [facility] [address] Point of Care testing , No Panel InformationOrdered By: Minerva Anderson on 10-01-2022 POC Estimated GFR > 60 [facility] Comment on above: GFR estimated refere nce range: According to KDOQI guidelines, <60 ml/min/1.73m2 is sufficient to diagnose a patient with chronic kidney disease. POC Estimated GFR Non- Amer 60 [facility] GLUCOSE, BLOOD (POC)on 09-25 Glucose [Mass/Vol] 91 mg/dL 74 - 99 mg/dL [facility] Comment on above: Location:[facility], [address] [place] [address] , [place], [place], [address] The Accu-Chek Inform II glucose meter has not been approved for testing on patients receiving intensive medical intervention or therapy and results from this point of care glucose test should not be used for patient management decisions in these cases. Inaccurate results may also occur from other interfering factors, such as N-acetylcysteine (blood concentrations of greater than 5mg/dL), galactose, extremes of hematocrit (<10 or >65), or high doses of ascorbic acid (vitamin C) greater than 3mg/dL. Consider alternate testing mechanisms (e.g. core lab, blood gas instrument) in the above situations. [facility] PET+CT Guidance for localiza tion of tumor of Skull base to mid-thigh-- W 18F-FDG Ivelisse 09-25-2022 IMPRESSION: Head and Neck: * No hypermetabolic [...] MRI. Musculoskeletal: * No neoplastic hypermetabolic lesions NOTE: This report was created using voice recognition dictation software. If there is a concern for errors, please have the clinician contact the report author for clarification. Transcribe Date/Time: Sep 25 2022 3:07P Dictated by: CELENA SWIFT MD This examination was interpreted and the report reviewed and electronically signed by: LACEY MALONEY MD on Sep 25 2022 6:23PM EST Thank you for allowing us to participate in the care of your patient. Should there be any questions regarding this interpretation, please call [phone]. If you are unable to reach us at the number above, please feel free to contact [facility] eRadiology at [phone]. DIVISION OF RADIOLOGY * * *Final Report* * * DATE OF EXAM: Sep 25 2022 2:00PM NRN 0060 - NM PET/CT SKULL-THIGH INIT / PROCEDURE REASON: Rectal cancer (HCC) * * * * Physician Interpretation * * * * RESULT: FDG PET/CT SCAN 09/25/2022 12:02 PM: CLINICAL HISTORY: 71 years old Male with Rectal cancer (HCC) INDICATION: Initial treatment strategy. TECHNIQUE: 91 mCi F-18 FDG IV, followed about 1 hour later by PET imaging from base of the skull to proximal femur. Non contrast CT was performed for attenuation correction and anatomic localization purposes. CT Dose-Length Product (DLP): 374 mGy*cm. CT Dose Reduction Employed: Yes BLOOD GLUCOSE: 14.4 mg/dL COMPARISON: None. CORRELATION: CT 09/11/2022 and MRI 09/11/2022 RESULT: Note- The SUV value is for reference purposes. Due to technical factors and uncontrolled variables, caution is advised when using SUV to differentiate malignant from nonmalignant processes, or to assess follow-up/treatment response. Reference max SUV: Mediastinum blood pool activity: max SUV 2.8 Background liver activity: max SUV 3.8 HEAD AND NECK: No pathologically enlarged or hypermetabolic cervical lymphadenopathy. Uptake in the oral cavity, tonsils, salivary glands, extraocular muscles is likely physiologic. Substantially limited evaluation of the intracranial structures due to the physiologic martínez matter uptake. CHEST: Devices/lines and tubes: None Lungs and tracheobronchial tree: Redemonstration of a few pulmonary nodules, stable from 09/11/2022, for reference: 0.7 cm pulmonary nodule in the right upper lobe (4:124) 4 mm pulmonary nodule within the right middle lobe (4:142) 4 mm pulmonary nodule within the right middle lobe (4:153) No hypermetabolic nodules or consolidation. Since FDG PET may have decreased sensitivity for pulmonary nodules <0.8 cm, follow-up chest CT would be suggested, as clinically indicated. Pleura and pericardium: No pleural effusion.No pericardial effusion Mediastinum and Lymph nodes: A few hypermetabolic lymph nodes, for reference: * 1.0 cm AP window lymph node (4:118), previously 0.9 cm, with a maximum SUV of 2.5. * 1.2 cm AP window lymph node (4:121), previously 1.2 cm, with a maximum SUV of 3.9. * 1.2 cm right lower paratracheal lymph node (4:127), previously 1.2 cm, with a maximum SUV of 3.9. A calcified subcarinal lymph node, likely represent sequela of prior granulomatous disease. Chest wall: No hypermetabolic lesion ABDOMEN AND PELVIS: Physiologic uptake seen in the and GI tracts. Liver: Mildly heterogeneous uptake, no definite hypermetabolic lesion. Biliary: No bile duct dilation. Gallbladder is unremarkable. Spleen: No splenomegaly or FDG avidity. Normal. Pancreas: No abnormal FDG avidity or duct dilation. Adrenals: Nodularity of the left adrenal gland with mild FDG activity, maximum SUV of 2.6 (7:204) likely representing adrenal hyperplasia. No FDG avid lesion. Kidneys: No obstructing calculi, hydronephrosis, or hypermetabolic lesions. . GI tract: Hypermetabolic focus within the distal rectum at the site of previously visualized rectal cancer, better assessed on prior MRI. No dilation or wall thickening. Lymph nodes: No abdominal or pelvic hypermetabolic lymphadenopathy. Mesentery/Peritoneum: No ascites or hypermetabolic mass. Vasculature: Vascular patency cannot be assessed due to lack of IV contrast. No aortic or iliac artery aneurysm. Pelvis: No hypermetabolic mass, ascites or fluid collection. Abdominopelvic wall: No hypermetabolic lesion MUSCULOSKELETAL: There are no hypermetabolic osseous lesions. Baggagemaster (topogram) images: No additional findings. Status post ACDF of C4-C7. DIVISION OF RADIOLOGY Provider, [facility] - 09/25/2022 * * *Final Report* * * DATE OF EXAM: Sep 25 2022 2:00PM NRN 0060 - NM PET/CT SKULL-THIGH INIT / PROCEDURE REASON: Rectal cancer (HCC) * * * * Physician Interpretation * * * * RESULT: FDG PET/CT SCAN 09/25/2022 12:02 PM: CLINICAL HISTORY: 71 years old Male with Rectal cancer (HCC) INDICATION: Initial treatment strategy. TECHNIQUE: 91 mCi F-18 FDG IV, followed about 1 hour later by PET imaging from base of the skull to proximal femur. Non contrast CT was performed for attenuation correction and anatomic localization purposes. CT Dose-Length Product (DLP): 374 mGy*cm. CT Dose Reduction Employed: Yes BLOOD GLUCOSE: 14.4 mg/dL COMPARISON: None. CORRELATION: CT 09/11/2022 and MRI 09/11/2022 RESULT: Note- The SUV value is for reference purposes. Due to technical factors and uncontrolled variables, caution is advised when using SUV to differentiate malignant from nonmalignant processes, or to assess follow-up/treatment response. Reference max SUV: Mediastinum blood pool activity: max SUV 2.8 Background liver activity: max SUV 3.8 HEAD AND NECK: No pathologically enlarged or hypermetabolic cervical lymphadenopathy. Uptake in the oral cavity, tonsils, salivary glands, extraocular muscles is likely physiologic. Substantially limited evaluation of the intracranial structures due to the physiologic martínez matter uptake. CHEST: Devices/lines and tubes: None Lungs and tracheobronchial tree: Redemonstration of a few pulmonary nodules, stable from 09/11/2022, for reference: 0.7 cm pulmonary nodule in the right upper lobe (4:124) 4 mm pulmonary nodule within the right middle lobe (4:142) 4 mm pulmonary nodule within the right middle lobe (4:153) No hypermetabolic nodules or consolidation. Since FDG PET may have decreased sensitivity for pulmonary nodules <0.8 cm, follow-up chest CT would be suggested, as clinically indicated. Pleura and pericardium: No pleural effusion.No pericardial effusion Mediastinum and Lymph nodes: A few hypermetabolic lymph nodes, for reference: * 1.0 cm AP window lymph node (4:118), previously 0.9 cm, with a maximum SUV of 2.5. * 1.2 cm AP window lymph node (4:121), previously 1.2 cm, with a maximum SUV of 3.9. * 1.2 cm right lower paratracheal lymph node (4:127), previously 1.2 cm, with a maximum SUV of 3.9. A calcified subcarinal lymph node, likely represent sequela of prior granulomatous disease. Chest wall: No hypermetabolic lesion ABDOMEN AND PELVIS: Physiologic uptake seen in the and GI tracts. Liver: Mildly heterogeneous uptake, no definite hypermetabolic lesion. Biliary: No bile duct dilation. Gallbladder is unremarkable. Spleen: No splenomegaly or FDG avidity. Normal. Pancreas: No abnormal FDG avidity or duct dilation. Adrenals: Nodularity of the left adrenal gland with mild FDG activity, maximum SUV of 2.6 (7:204) likely representing adrenal hyperplasia. No FDG avid lesion. Kidneys: No obstructing calculi, hydronephrosis, or hypermetabolic lesions. . GI tract: Hypermetabolic focus within the distal rectum at the site of previously visualized rectal cancer, better assessed on prior MRI. No dilation or wall thickening. Lymph nodes: No abdominal or pelvic hypermetabolic lymphadenopathy. Mesentery/Peritoneum: No ascites or hypermetabolic mass. Vasculature: Vascular patency cannot be assessed due to lack of IV contrast. No aortic or iliac artery aneurysm. Pelvis: No hypermetabolic mass, ascites or fluid collection. Abdominopelvic wall: No hypermetabolic lesion MUSCULOSKELETAL: There are no hypermetabolic osseous lesions. Baggagemaster (topogram) images: No additional findings. Status post ACDF of C4-C7. IMPRESSION IMPRESSION: Head and Neck: * No hypermetabolic [...] MRI. Musculoskeletal: * No neoplastic hypermetabolic lesions NOTE: This report was created using voice recognition dictation software. If there is a concern for errors, please have the clinician contact the report author for clarification. Transcribe Date/Time: Sep 25 2022 3:07P Dictated by: CELENA SWIFT MD This examination was interpreted and the report reviewed and electronically signed by: LACEY MALONEY MD on Sep 25 2022 6:23PM EST Thank you for allowing us to participate in the care of your patient. Should there be any q (more content not included)... [facility] Radiology Study observation (narrative) [facility] PET+CT Guidance for localiza tion of tumor of Skull base to mid-thigh-- W 18F-FDG IVOrdered By: [facility] Provider on 09-25-2022 [facility] PATH CONSULTon 09-20-2022 LAB AP CASE REPORT Normal [facility] Comment on above: Result Comment: PATH OLOGY CONSULT Case: [id number] Authorizing Provider: Thalia Troy MD Collected: 09/20/2022 1150 Ordering Location: [facility] Lab Received: 09/20/2022 1153 Pathologist: Vanessa Maldonado MD Specimen: Anus, Biopsy Performed By: #### P ATH CONSULT ####[facility] ([facility])[address] [place] [address] LAB AP CLINICAL INFORMATION Anal mass Normal [facility] Comment on above: Performed By: #### P ATH CONSULT ####[facility] ([facility])[address] [place] [address] LAB AP DIAGNOSIS COMMENT Normal [facility] Comment on above: Result Comment: Prov [...] needed. Performed By: #### P ATH CONSULT ####[facility] ([facility])[address] [place] [address] LAB AP GROSS DESCRIPTION A. Anus. [facility] Comment on above: Result Comment: [place] [address] are eight (8) previously stained glass slides accessioned [id number]. The slides are accompanied by a copy of the contributing pathologists??? report. Performed By: #### P ATH CONSULT ####[facility] ([facility])[address] [place] [address] LAB AP REPORT FINAL DIAGNOSIS NARRATIVE Normal [facility] Comment on above: Result Comment: Mass at anal verge, biopsy (OSS#[id number], are 8 slides [facility] from [facility] [facility] [place] Adenocarcinoma of colonic origin. Performed By: #### P ATH CONSULT ####[facility] ([facility])[address] [place] [address] CBC W Auto Differential pane l (Bld)on 09-17-2022 Basophils (Bld) [#/Vol] 0.06 10*3/uL <0.11 k/uL [facility] Basophils/100 WBC (Bld) 0.6 % [facility] Differential cell count method Nom (Bld) Auto [facility] Eosinophils (Bld) [#/Vol] 0.26 10*3/uL <0.46 k/uL [facility] Eosinophils/100 WBC (Bld) 2.7 % [facility] Erythrocyte distribution width (RBC) [Ratio] 15.2 % High 11.5 - 15.0 % [facility] Hematocrit (Bld) [Volume fraction] 43.9 % 39.0 - 51.0 % [facility] Hemoglobin (Bld) [Mass/Vol] 14.4 g/dL 13.0 - 17.0 g/dL [facility] Immature granulocytes (Bld) [#/Vol] 0.03 10*3/uL <0.10 k/uL [facility] Immature granulocytes/100 WBC (Bld) 0.3 % [facility] Lymphocytes (Bld) [#/Vol] 2.17 10*3/uL 1.00 - 4.00 k/uL [facility] Lymphocytes/100 WBC (Bld) 22.8 % [facility] MCH (RBC) [Entitic mass] 31.0 pg 26.0 - 34.0 pg [facility] MCHC (RBC) [Mass/Vol] 32.8 g/dL 30.5 - 36.0 g/dL [facility] MCV (RBC) [Entitic vol] 94.4 fL 80.0 - 100.0 fL [facility] Monocytes (Bld) [#/Vol] 0.67 10*3/uL <0.87 k/uL [facility] Monocytes/100 WBC (Bld) 7.0 % [facility] Neutrophils (Bld) [#/Vol] 6.33 10*3/uL 1.45 - 7.50 k/uL [facility] Neutrophils/100 WBC (Bld) 66.6 % [facility] Nucleated RBC (Bld) [#/Vol] <0.01 k/uL [facility] Nucleated RBC/100 WBC (Bld) [Ratio] 0.0 /100 WBC [facility] Platelet mean volume (Bld) [Entitic vol] 10.4 fL 9.0 - 12.7 fL [facility] Platelets (Bld) [#/Vol] 232 10*3/uL 150 - 400 k/uL [facility] RBC (Bld) [#/Vol] 4.65 10*6/uL 4.20 - 6.0 0 m/uL [facility] WBC (Bld) [#/Vol] 9.52 10*3/uL 3.70 - 11.00 k/uL [facility] Comprehensive metabolic 2000 panelon 09-17-2022 Albumin [Mass/Vol] 4.2 g/dL 3.9 - 4.9 g/dL [facility] ALP [Catalytic activity/Vol] 89 U/L 38 - 113 U/L [facility] ALT [Catalytic activity/Vol] 11 U/L 10 - 54 U/L [facility] Anion gap [Moles/Vol] 8 mmol/L Low 9 - 18 mmol/L [facility] AST [Catalytic activity/Vol] 16 U/L 14 - 40 U/L [facility] Bilirubin [Mass/Vol] 0.5 mg/dL 0.2 - 1 .3 mg/dL [facility] Calcium [Mass/Vol] 9.3 mg/dL 8.5 - 10. 2 mg/dL [facility] Chloride [Moles/Vol] 103 mmol/L 97 - 10 5 mmol/L [facility] CO2 [Moles/Vol] 29 mmol/L 22 - 30 mmol/L [facility] Creatinine [Mass/Vol] 1.22 mg/dL 0.73 - 1.22 mg/dL [facility] Estimated Glomerular Filtration Rate 64 mL/min/1.73m >=60 mL/min/1.73 m [facility] Glucose [Mass/Vol] 84 mg/dL 74 - 99 mg/dL [facility] Potassium [Moles/Vol] 4.1 mmol/L 3.7 - 5.1 mmol/L [facility] Protein [Mass/Vol] 6.5 g/dL 6.3 - 8.0 g/dL [facility] Sodium [Moles/Vol] 140 mmol/L 136 - 144 mmol/L [facility] Urea nitrogen [Mass/Vol] 23 mg/dL 9 - 24 mg/dL [facility] CT ABDOMEN PELVIS W IV CONTR [...] gallbladder dilatation. Electronically signed: Jerrica Barragan. Normal [facility] CT CHEST W IV CONTRASTon CT [...] prior granulomatous disease. Electronically signed: Jerrica Barragan. [facility] MR PELVIS WO CONTRASTon 08-22 [...] findings section. Electronically signed: MERVAT JACINTO. Normal [facility] Comment on above: Order Comment: RECTA L MRI NEEDED CEAon 09-05-2022 CARCINOEMBRYONIC AG (NG/ML) IN SER/PLAS 14.4 ng/mL High 0-3 [facility] Comment on above: Performed By: #### L [id number] ####[facility] ([facility])[address] [place] [address] CREATININE, SERUMon 09-05-20 22 Creatinine [Mass/Vol] 1.15 mg/dL Normal 0.70-1.30 [facility] Comment on above: Performed By: #### L [id number] #### [facility] ([facility]) [address] [place] [address] GLOMERULAR FILTRATION RATE ML/MIN/1.73 SQ M.PREDICTED 64.6 mL/min/1.73m*2 Normal >60.0 [facility] Comment on above: Result Comment: [facility]???s estimated glomerular filtration rate (eGFR) will [...] individuals. Performed By: #### L [id number] #### [facility] ([facility]) [address] [place] [address] Office Visiton 09-05-2022 Follow-up visit [id number] Mervat Grayson 1950 M Date Provider Department Center 09/05/2022 [facility] SURG Second Fl Family History Problem Relation Age of Onset Pancreatic cancer Mother Breast cancer Mother Other Father Liver cancer Sister Thyroid cancer Brother Family Status - Relation Status Age at Mother Father Sister Brother Alive Level of Service:23117 IN OFFICE/OUTPATIENT ESTABLISHED MOD MDM 30-39 MIN Reason for Visit and Comments: Follow-up [064457] - Adenocarcinoma of colon (Reveiw biopsy results) [facility] 36on 08-29-[address] TROY SCHEDULE IN OFFICE ON 09/05/22. CALLED PT AND SCHEDULED WITH DR. TROY PER PROVIDER REQUEST. [facility] 36 Pt update he states metamusil is helping with constipation and pain is still between 2-5. Pt is scheduled for next Saturday. [facility] Orders Onlyon 08-29-2022 Orders Only [id number] ElizabethMervat hairston 1950 M Date Provider Department Center 08/29/2022 [facility] SURG Second Fl No family history on file [facility] Consulton 08-22-2022 Consult [id number] ElizabethMervat hairston 1950 M Date Provider Department Center 08/22/2022 387-[facility] SURG Second Fl No family history on file Level of Service:58768 IN OFFICE/OUTPATIENT NEW MODERATE MDM 45-59 MINUTES Reason for Visit and Comments: Consult [484] - rectal mass [facility] Laboratory - Chemistry and C [...] 1 11 mmol/L [facility] CO2 [Moles/Vol] 28 mmol/L Normal 21 - 31 mmol/L [facility] Creatinine [Mass/Vol] 1.3 mg/dL Normal 0.5 - 1.3 mg/dL [facility] GFR/1.73 sq M.predicted among blacks MDRD (S/P/Bld) [Vol rate/Area] mL/min/1.73 m2 Normal >=59mL/min/ 1.73 m2 [facility] Chem S GFR/1.73 sq M.predicted among non-blacks MDRD (S/P/Bld) [Vol rate/Area] 55 mL/min/1.73 m2 Low >=59mL/min/ 1.73 m2 [facility] Chem S Globulin (S) [Mass/Vol] 3.2 g/dL Normal 1.4 - 4.0 gm/dL [facility] Glucose [Mass/Vol] 72 mg/dL Normal 55 - 199 mg/dL [facility] Potassium [Moles/Vol] 4.1 mmol/L Normal 3.5 - 5.3 mmol/L [facility] Protein [Mass/Vol] 6.9 g/dL Normal 6.0 - 7.8 gm/dL [facility] Sodium [Moles/Vol] 138 mmol/L Normal 135 - 145 mmol/L [facility] Urea nitrogen [Mass/Vol] 21 mg/dL Normal 5 - 21 mg/dL [facility] Urea nitrogen/Creatinine [Mass ratio] 16 mg/mg [...] 31.4 pg Normal 27.0 - 34.0 pg [facility] MCHC (RBC) [Mass/Vol] 33.2 g/dL Normal [...] Normal 4.0 - 11.0 E9/L [facility] No Panel InformationOrdered By: Bre Ventura [...] 24 mmol/L Normal 21 - 31 mmol/L [facility] Remisol Creatinine [Mass/Vol] 1.6 mg/dL High 0.5 - 1.3 mg/dL [facility] GFR/1.73 sq M.predicted among blacks MDRD (S/P/Bld) [Vol rate/Area] 52 mL/min/1.73 m2 Low >=59mL/min/ 1.73 m2 [facility] Chem S GFR/1.73 sq M.predicted among non-blacks MDRD (S/P/Bld) [Vol rate/Area] 43 mL/min/1.73 m2 Low >=59mL/min/ 1.73 m2 [facility] Chem S Glucose [Mass/Vol] 86 mg/dL Normal 55 - 199 mg/dL [facility] Potassium [Moles/Vol] 4.1 mmol/L Normal 3.5 - 5.3 mmol/L [facility]isol Sodium [Moles/Vol] 137 mmol/L Normal 135 - 145 mmol/L [facility] Urea nitrogen [Mass/Vol] 30 mg/dL High 5 - 21 mg/dL [facility] Urea nitrogen/Creatinine [Mass ratio] 19 mg/mg Normal 10 - 20 [facility] Remisol HEMATOLOGYOrdered By: SYSTEM SYSTEM on 05-31-2022 Basophils/100 WBC (Bld) 0.7 % Normal 0.0 - 2.0 % [facility] Basophils/Leukocytes Auto (Bld) [Pure # fraction] 0.1 E9/L Normal 0.0 - 0.2 E9/L [facility] Eosinophils/100 WBC (Bld) 1.5 % Normal 0.0 - 8.0 % [facility] Eosinophils/Leukocyte s Auto (Bld) [Pure # [...] 1 11 mmol/L [facility] CO2 [Moles/Vol] 30 mmol/L Normal 21 - 31 mmol/L [facility] Creatinine [Mass/Vol] 1.4 mg/dL High 0.5 - 1.3 mg/dL [facility] Remisol GFR/1.73 sq M.predicted among blacks MDRD (S/P/Bld) [Vol rate/Area] mL/min/1.73 m2 Normal >=59mL/min/ 1.73 m2 [facility] Chem S GFR/1.73 sq M.predicted among non-blacks MDRD (S/P/Bld) [Vol rate/Area] 50 mL/min/1.73 m2 Low >=59mL/min/ 1.73 m2 [facility] Chem S Globulin (S) [Mass/Vol] 3.0 g/dL Normal 1.4 - 4.0 gm/dL [facility] Glucose [Mass/Vol] 87 mg/dL Normal 55 - 199 mg/dL [facility] Potassium [Moles/Vol] 3.7 mmol/L Normal 3.5 - 5.3 mmol/L [facility] Protein [Mass/Vol] 6.8 g/dL Normal 6.0 - 7.8 gm/dL [facility] Sodium [Moles/Vol] 143 mmol/L Normal 135 - 145 mmol/L [facility] Urea nitrogen [Mass/Vol] 29 mg/dL High 5 - 21 mg/dL [facility] Urea nitrogen/Creatinine [Mass ratio] 21 mg/mg High 10 - 20 [facility] Remisol HEMATOLOGYOrdered By: Viktor Fox on 04-30-2022 Erythrocyte distribution width (RBC) [Ratio] 17.2 % High 10.9 - 14.2 % [facility] Hematocrit (Bld) [Volume fraction] 39.4 % Normal 37.7 - 49.0 % [facility] Hemoglobin (Bld) [Mass/Vol] 13.6 g/dL Normal [...] 7.8 E9/L Normal 4.0 - 11.0 E9/L [facility] Reference Laboratory Testing Ordered By: [facility] DomainUser on 11-07-2021 SARS-CoV-2 (COVID-19) RNA MIGUE+probe Ql (Resp) Not detected Invalid Interpretation Code Not Detected [facility] Comment on above: Result Comment: This nucleic acid amplification test was developed and its performance characteristics determined by [facility]. Nucleic acid amplification tests include RT-PCR and [...] detected) result in this assay. Performed at: [address] [id number] PhD Adan Steven Covid-19 PCR (CVDTBH)on SARS-CoV-2 (COVID-19) RNA MIGUE+probe Ql (Unsp spec) Not detected Normal NOT DETECTED [facility] Comment on above: Result Comment: This test is not yet approved or cleared by the [place] FDA. When there are no FDA-approved or cleared tests available, and other criteria are met, FDA can make tests available under an emergency access mechanism called an Emergency Use Authorization (EUA). The EUA for this test is supported by the [employer] of Health and Human Service's (HHS's) declaration [...] consistent with SARS-CoV-2. Performed By: #### C VDTBH #### [facility] [address] [place], [place] [address] Shannan Viola CBC AUTO DIFFon 03-23-2021 BASO # 0.1 103/ul Normal 0.0-0.1 [facility] Comment on above: Performed By: #### C BC #### [facility] [address] [place], [place] [address] Shannan Viola Basophils/100 WBC (Bld) 0.8 % Normal 0.2-2.0 [facility] Comment on above: Performed By: #### C BC #### [facility] [address] [place], [place] [address] Shannan Viola EO # 0.3 103/ul Normal 0.0-0.7 [facility] Comment on above: Performed By: #### C BC #### [facility] [address] [place], [place] [address] Shannan Viola Eosinophils/100 WBC (Bld) 4.1 % Normal 0.9-7.0 [facility] Comment on above: Performed By: #### C BC #### [facility] [address] [place] [address] Shannan Rod Erythrocyte distribution width (RBC) [Ratio] 16.0 % Critically high 11.0-15.0 [facility] Comment on above: Performed By: #### C BC #### [facility] [address] [place] [address] Shannan Viola Hematocrit (Bld) [Volume fraction] 40.8 % Critically low 42.0-54.0 [facility] Comment on above: Performed By: #### C BC #### [facility] [address] [place] [address] Shannandomenic Rod Hemoglobin (Bld) [Mass/Vol] 13.4 g/dL Critically low 14.0-18.0 [facility] Comment on above: Performed By: #### C BC #### [facility] [address] [place] [address] Shannan Viola IG # 0.02 10e3/ul Normal 0.00-0.03 [facility] Comment on above: Performed By: #### C BC #### [facility] [address] [place] [address] Shannandomenic Rod IG % 0.3 % Normal 0.0-0.5 [facility] Comment on above: Performed By: #### C BC #### [facility] [address] [place] [address] Shannan Viola LYMPH # 2.1 103/ul Normal 1.2-3.8 [facility] Comment on above: Performed By: #### C BC #### [facility] [address] [place] [address] Shannan Rod Lymphocytes/100 WBC (Bld) 26.3 % Normal 20.5-60.0 [facility] Comment on above: Performed By: #### C BC #### [facility] [address] [place] [address] Shannan Rod MANUAL DIFF REQ NO Normal [facility] Comment on above: Performed By: #### C BC #### [facility] [address] [place], [place] [address] Shannandomenic Rod MCH (RBC) [Entitic mass] 31.0 pg Normal 25.9-34.0 [facility] Comment on above: Performed By: #### C BC #### [facility] [address] [place], [place] [address] Shannandomenic Rod MCHC (RBC) [Mass/Vol] 32.8 g/dL Normal 29.9-35.2 [facility] Comment on above: Performed By: #### C BC #### [facility] [address] [place], [place] [address] Shannan Viola MCV (RBC) [Entitic vol] 94.4 fL Critically high 80.0-94.0 [facility] Comment on above: Performed By: #### C BC #### [facility] [address] [place] [address] Shannan Viola MONO # 0.7 103/ul Normal 0.3-0.8 [facility] Comment on above: Performed By: #### C BC #### [facility] [address] [place], [place] [address] Shannan Viola Monocytes/100 WBC (Bld) 8.8 % Normal 1.7-12.0 [facility] Comment on above: Performed By: #### C BC #### [facility] [address] [place] [address] Shannan Viola NEUT # 4.7 103/ul Normal 1.4-6.5 [facility] Comment on above: Performed By: #### C BC #### [facility] [address] [place], [place] [address] Shannan Viola Neutrophils/100 WBC (Bld) 59.7 % Normal 43.0-75.0 [facility] Comment on above: Performed By: #### C BC #### [facility] [address] [place], [place] [address] Shannan Viola Platelet mean volume (Bld) [Entitic vol] 10.0 fL Normal 9.5-13.5 [facility] Comment on above: Performed By: #### C BC #### [facility] [address] [place], [place] [address] Shannan Viola PLT 225 103/ul Normal 150-450 [facility] Comment on above: Performed By: #### C BC #### [facility] [address] [place] [id number] Shannan Viola RBC 4.32 106/ul Critically low 4.70-6.10 [facility] Comment on above: Performed By: #### C BC #### [facility] [address] [place] [id number] Shannan Viola WBC 7.8 103/ul Normal 4.0-11.0 [facility] Comment on above: Performed By: #### C BC #### [facility] [address] [place] [id number] Shannan Viola PROF CHEM 8 (BAS METB)on Anion gap [Moles/Vol] 9.5 mmol/L Normal [facility] Comment on above: Performed By: #### B MP #### [facility] [address] [place], [place] [address] Shannan Viola Calcium [Mass/Vol] 8.6 mg/dL Normal 8.4-10.2 [facility] Comment on above: Performed By: #### B MP #### [facility] [address] [place], [place] [address] Shannan Viola Chloride [Moles/Vol] 106 mmol/L Normal 98-107 [facility] Comment on above: Performed By: #### B MP #### [facility] [address] [place] [id number] Shannan Viola CO2 [Moles/Vol] 30.5 mmol/L Critically high 22.0-30.0 [facility] Comment on above: Performed By: #### B MP #### [facility] [address] [place], [place] [address] Shannan Viola Creatinine [Mass/Vol] 1.22 mg/dL Normal 0.66-1.25 [facility] Comment on above: Performed By: #### B MP #### [facility] [address] [place] [id number] Shannan Viola EGFR-AF MALAWIAN >60 Normal >=[address] [facility] Comment on above: Performed By: #### B MP #### [facility] [address] [place] [id number] Shannan Viola EGFR-NON AF MALAWIAN 59 mL/min/1.73m2 Critically low >=60 [facility] Comment on above: Performed By: #### B MP #### [facility] [address] [place] [id number] Shannan Viola Glucose [Mass/Vol] 84 mg/dL Normal 74-106 [facility] Comment on above: Performed By: #### B MP #### [facility] [address] [place] [id number] Shannan Viola Potassium [Moles/Vol] 4.0 mmol/L Normal 3.4-5.0 [facility] Comment on above: Performed By: #### B MP #### [facility] [address] [place] [address] Shannan Viola Sodium [Moles/Vol] 142 mmol/L Normal 137-145 [facility] Comment on above: Performed By: #### B MP #### [facility] [address] [place] [id number] Shannan Viola Urea nitrogen [Mass/Vol] 15.0 mg/dL Normal 9.0-20.0 [facility] Comment on above: Performed By: #### B MP #### [facility] [address] [place] [address] Shannan Viola Urea nitrogen/Creatinine [Mass ratio] 12.3 mg/mg Normal [facility] Comment on above: Performed By: #### B MP #### [facility] [address] [place] [id number] Shannan Viola PROTIMEon 03-23-2021 INR Coag (PPP) [Relative time] 0.99 {INR} Normal [facility] Comment on above: Performed By: #### P T, PTT #### [facility] [address] [place], [place] [address] Shannan Viola INR GUIDELINES SEE BELOW Normal [facility] Comment on above: Result Comment: YASMANY RED INR: 2.0 - 3.0 CONDITIONS NOT LISTED BELOW 2.5 - 3.5 FOR PROSTHETIC HEART VALVE REPLACEMENT 2.5 - 3.5 RECURRENT THROMBOSIS Performed By: #### P T, PTT #### [facility] [address] [place], [place] [address] Shannan Rod PT Coag (PPP) [Time] 10.8 s Normal 9.0-11.6 [facility] Comment on above: Performed By: #### P T, PTT #### [facility] [address] [place], [place] [address] Shannan Rod PTTon 03-23-2021 aPTT Coag (Bld) [Time] 28.1 s Normal 22.3-36.2 [facility] Comment on above: Performed By: #### P T, PTT #### [facility] [address] [place], [place] [address] Shannan Rod XR FOOT BLANCA MIN 3 [...] by: DEBORAH PETIT Date: 2021-02-02 11:19 Normal [facility] Vital Signs Date Time Vital Sign Value Performing Clinician Crescencioi ophelia 04-12-2025 10:43-0400 Body mass index (BMI) [Ratio] 29.83 kg/m2 Minerva Anderson MD Work Phone: [facility] 04-12-2025 10:43-0400 Body temperature 97.7 [degF] Minerva Anderson MD Work Phone: [facility] 04-12-2025 10:43-0400 Body weight 105.4 kg Minerva Anderson MD Work Phone: [facility] 04-12-2025 10:43-0400 Diastolic blood pressure 82 mm[Hg] Minerva Anderson MD Work Phone: [facility] 04-12-2025 10:43-0400 Heart rate 69 /min Minerva Anderson MD Work Phone: [facility] 04-12-2025 10:43-0400 Respiratory rate 16 /min Minerva Anderson MD Work Phone: [facility] 04-12-2025 10:43-0400 SaO2% (BldA) [Mass fraction] 98 % Minerva Anderson MD Work Phone: [facility] 04-12-2025 10:43-0400 Systolic blood pressure 129 mm[Hg] Minerva Anderson MD Work Phone: [facility] 03-31-2025 14:54-0400 Body height 188 cm Deborah Norman MD Work Phone: [facility] 03-31-2025 14:54-0400 Body mass index (BMI) [Ratio] 28.63 kg/m2 Deborah Norman MD Work Phone: [facility] 03-31-2025 14:54-0400 Body weight 101.15 kg Deborah Norman MD Work Phone: [facility] 03-31-2025 14:54-0400 Diastolic blood pressure 87 mm[Hg] Deborah Norman MD Work Phone: [facility] 03-31-2025 14:54-0400 Heart rate 80 /min Deborah Norman MD Work Phone: [facility] 03-31-2025 14:54-0400 Systolic blood pressure 135 mm[Hg] Deborah Norman MD Work Phone: [facility] 03-18-2025 13:00-0400 Body height 187.96 cm [facility] 03-18-2025 13:00-0400 Body mass index (BMI) [Ratio] 29.1 kg/m2 [facility] 03-18-2025 13:00-0400 Body weight 102.96 kg [facility] 03-18-2025 13:00-0400 Diastolic blood pressure 93 mm[Hg] [facility] 03-18-2025 13:00-0400 Heart rate 64 /min [facility] 03-18-2025 13:00-0400 Systolic blood pressure 144 mm[Hg] [facility] 03-10-2025 07:57-0400 Blood Pressure Location Pato Peña [facility] 03-10-2025 07:57-0400 Diastolic blood pressure 76 mm[Hg] Pato Peña [facility] 03-10-2025 07:57-0400 Heart rate 68 /min Pato Casey [facility] 03-10-2025 07:57-0400 Respiratory rate 18 /min Pato Peña [facility] 03-10-2025 07:57-0400 SaO2% (BldA) [Mass fraction] 96 % Pato Peña [facility] 03-10-2025 07:57-0400 Systolic blood pressure 126 mm[Hg] Pato Peña [facility] 01-11-2025 09:28-0400 Body mass index (BMI) [Ratio] 28.76 kg/m2 Minerva Anderson MD Work Phone: [facility] 01-11-2025 09:28-0400 Body temperature 97.59 [degF] Minerva Anderson MD Work Phone: [facility] 01-11-2025 09:28-0400 Body weight 101.6 kg Minerva Anderson MD Work Phone: [facility] 01-11-2025 09:28-0400 Diastolic blood pressure 83 mm[Hg] Minerva Anderson MD Work Phone: [facility] 01-11-2025 09:28-0400 Heart rate 67 /min Minerva Anderson MD Work Phone: [facility] 01-11-2025 09:28-0400 Respiratory rate 18 /min Minerva Anderson MD Work Phone: [facility] 01-11-2025 09:28-0400 SaO2% (BldA) [Mass fraction] 100 % Minerva Anderson MD Work Phone: [facility] 01-11-2025 09:28-0400 Systolic blood pressure 131 mm[Hg] Minerva Anderson MD Work Phone: [facility] 12-28-2024 07:23-0400 Body temperature 97.9 [degF] Celeste Willner COMMUNICATIONS SCIENTIST.CH[employer]STITCH Z[employer]TER Work Phone: [facility] 12-28-2024 07:23-0400 Diastolic blood pressure 84 mm[Hg] Celeste Willner COMMUNICATIONS SCIENTIST.CHAINSTITCH ZIPPER SETTER Work Phone: [facility] 12-28-2024 07:23-0400 Heart rate 75 /min Celeste Willner COMMUNICATIONS SCIENTIST.CHAINSTITCH Z[employer]PER SETTER Work Phone: [facility] 12-28-2024 07:23-0400 Systolic blood pressure 181 mm[Hg] Celeste Willner COMMUNICATIONS SCIENTIST.CHAINSTITCH ZIPPER SETTER Work Phone: [facility] 12-07-2024 08:45-0500 Body mass index (BMI) [Ratio] 28.33 kg/m2 Minerva Anderson MD Work Phone: [facility] 12-07-2024 08:45-0500 Body temperature 97.9 [degF] Minerva Anderson MD Work Phone: [facility] 12-07-2024 08:45-0500 Body weight 100.1 kg Minerva Anderson MD Work Phone: [facility] 12-07-2024 08:45-0500 Diastolic blood pressure 84 mm[Hg] Minerva Anderson MD Work Phone: [facility] 12-07-2024 08:45-0500 Heart rate 75 /min iMnerva Anderson MD Work Phone: [facility] 12-07-2024 08:45-0500 Respiratory rate 18 /min Minerva Anderson MD Work Phone: [facility] 12-07-2024 08:45-0500 SaO2% (BldA) [Mass fraction] 97 % Minerva Anderson MD Work Phone: [facility] 12-07-2024 08:45-0500 Systolic blood pressure 148 mm[Hg] Minerva Anderson MD Work Phone: [facility] 11-24-2024 12:20-0500 Diastolic blood pressure 85 mm[Hg] Deborah Norman MD Work Phone: [facility] 11-24-2024 12:20-0500 Heart rate 65 /min Deborah Norman MD Work Phone: [facility] 11-24-2024 12:20-0500 Respiratory rate 18 /min Deborah Norman MD Work Phone: [facility] 11-24-2024 12:20-0500 SaO2% (BldA) [Mass fraction] 93 % Deborah Norman MD Work Phone: [facility] 11-24-2024 12:20-0500 Systolic blood pressure 131 mm[Hg] Deborah Norman MD Work Phone: [facility] 11-24-2024 12:00-0500 Body temperature 97 [degF] Deborah Norman MD Work Phone: [facility] 11-24-2024 11:23-0500 Body height 188 cm Deborah Norman MD Work Phone: [facility] 11-24-2024 11:23-0500 Body mass index (BMI) [Ratio] 28.37 kg/m2 Deborah Norman MD Work Phone: [facility] 11-24-2024 11:23-0500 Body weight 100.25 kg Deborah Norman MD Work Phone: [facility] 11-10-2024 10:11-0500 Body height 188 cm Kari Emily PA-C Work Phone: [facility] 11-10-2024 10:11-0500 Body mass index (BMI) [Ratio] 28.43 kg/m2 Kari Emily PA-C Work Phone: [facility] 11-10-2024 10:11-0500 Body temperature 97.9 [degF] Kari Emily PA-C Work Phone: [facility] 11-10-2024 10:11-0500 Body weight 100.5 kg Kari Emily PA-C Work Phone: [facility] 11-10-2024 10:11-0500 Diastolic blood pressure 72 mm[Hg] Kari Emily PA-C Work Phone: [facility] 11-10-2024 10:11-0500 Heart rate 70 /min Kari Emily PA-C Work Phone: [facility] 11-10-2024 10:11-0500 Respiratory rate 18 /min Kari Emily PA-C Work Phone: [facility] 11-10-2024 10:11-0500 SaO2% (BldA) [Mass fraction] 96 % Kari Emily PA-C Work Phone: [facility] 11-10-2024 10:11-0500 Systolic blood pressure 120 mm[Hg] Kari Emily PA-C Work Phone: [facility] 09-27-2024 18:30-0500 Diastolic blood pressure 104 mm[Hg] Micky Cueto [facility] 09-27-2024 18:30-0500 Heart rate 77 /min Micky Cueto [facility] 09-27-2024 18:30-0500 Mean blood pressure 124 mm[Hg] Micky Cueto [facility] 09-27-2024 18:30-0500 Respiratory rate 16 /min Micky Rom [facility] 09-27-2024 18:30-0500 SaO2% (BldA) [Mass fraction] 97 % Micky Rom [facility] 09-27-2024 18:30-0500 Systolic blood pressure 164 mm[Hg] Micky Rom [facility] 09-27-2024 17:30-0500 Diastolic blood pressure 111 mm[Hg] Micky Rom [facility] 09-27-2024 17:30-0500 Heart rate 64 /min Micky Rom [facility] 09-27-2024 17:30-0500 Mean blood pressure 128 mm[Hg] Micky Rom [facility] 09-27-2024 17:30-0500 Respiratory rate 16 /min Micky Rom [facility] 09-27-2024 17:30-0500 SaO2% (BldA) [Mass fraction] 96 % Micky Rom [facility] 09-27-2024 17:30-0500 Systolic blood pressure 163 mm[Hg] Micky Rom [facility] 09-27-2024 17:00-0500 Diastolic blood pressure 101 mm[Hg] Micky Rom [facility] 09-27-2024 17:00-0500 Heart rate 70 /min Micky Rom [facility] 09-27-2024 17:00-0500 Mean blood pressure 118 mm[Hg] Micky Rom [facility] 09-27-2024 17:00-0500 Respiratory rate 18 /min Micky Rom [facility] 09-27-2024 17:00-0500 Systolic blood pressure 152 mm[Hg] Micky Cueto [facility] 09-27-2024 11:32-0500 Body temperature 98.42 [degF] Micky Cueto [facility] 09-27-2024 11:32-0500 Heart rate 62 /min Micky Cueto [facility] 09-16-2024 14:15-0500 Body height 188 cm Dayanara Sullivan APRN.CHAINSTITCH ZIPPER SETTER Work Phone: [facility] 09-16-2024 14:15-0500 Body mass index (BMI) [Ratio] 28.89 kg/m2 Dayanara Sullivan APRN.CHAINSTITCH [employer]PER SETTER Work Phone: [facility] 09-16-2024 14:15-0500 Body temperature 96.8 [degF] Dayanara Sullivan APRN.CHAINSTITCH ZIPPER SETTER Work Phone: [facility] 09-16-2024 14:15-0500 Body weight 102.06 kg Dayanara Sullivan APRN.CHAINSTITCH Z[employer]PER SETTER Work Phone: [facility] 09-16-2024 14:15-0500 Diastolic blood pressure 92 mm[Hg] Dayanara Sullivan APRN.CHAINSTITCH Z[employer]PER SETTER Work Phone: [facility] 09-16-2024 14:15-0500 Heart rate 68 /min Dayanara Sullivan APRN.CHAINSTITCH ZIPPER SETTER Work Phone: [facility] 09-16-2024 14:15-0500 SaO2% (BldA) [Mass fraction] 98 % Dayanara Sullivan APRN.CHAINSTITCH ZIPPER SETTER Work Phone: [facility] 09-16-2024 14:15-0500 Systolic blood pressure 125 mm[Hg] Dayanara Sullivan APRN.CHAINSTITCH ZIPPER SETTER Work Phone: [facility] 09-10-2024 08:11-0500 Blood Pressure Location Pato Peña [facility] 09-10-2024 08:11-0500 Diastolic blood pressure 84 mm[Hg] Pato Peña [facility] 09-10-2024 08:11-0500 Heart rate 78 /min Pato Peña [facility] 09-10-2024 08:11-0500 Respiratory rate 16 /min Pato Peña [facility] 09-10-2024 08:11-0500 SaO2% (BldA) [Mass fraction] 98 % Pato Peña [facility] 09-10-2024 08:11-0500 Systolic blood pressure 122 mm[Hg] Pato Peña [facility] 09-08-2024 09:05-0500 Body height 188 cm Minerva Anderson MD Work Phone: [facility] 09-08-2024 09:05-0500 Body mass index (BMI) [Ratio] 29 kg/m2 Minerva Anderson MD Work Phone: [facility] 09-08-2024 09:05-0500 Body temperature 97.39 [degF] Minerva Anderson MD Work Phone: [facility] 09-08-2024 09:05-0500 Body weight 102.5 kg Minerva Anderson MD Work Phone: [facility] 09-08-2024 09:05-0500 Diastolic blood pressure 83 mm[Hg] Minerva Anderson MD Work Phone: [facility] 09-08-2024 09:05-0500 Heart rate 83 /min Minerva Anderson MD Work Phone: [facility] 09-08-2024 09:05-0500 Respiratory rate 18 /min Minerva Anderson MD Work Phone: [facility] 09-08-2024 09:05-0500 SaO2% (BldA) [Mass fraction] 97 % Minerva Anderson MD Work Phone: [facility] 09-08-2024 09:05-0500 Systolic blood pressure 134 mm[Hg] Minerva Anderson MD Work Phone: [facility] 08-13-2024 12:41-0400 Body temperature 97.3 [degF] Celeste Andrews COMMUNICATIONS SCIENTIST.CHAINSTITCH ZIPPER SETTER Work Phone: [facility] 08-13-2024 12:41-0400 Diastolic blood pressure 76 mm[Hg] Celeste Andrews COMMUNICATIONS SCIENTIST.CHAINSTITCH ZIPPER SETTER Work Phone: [facility] 08-13-2024 12:41-0400 Heart rate 91 /min Celeste Andrews COMMUNICATIONS SCIENTIST.CHAINSTITCH Z[employer]PER SETTER Work Phone: [facility] 08-13-2024 12:41-0400 SaO2% (BldA) [Mass fraction] 95 % Celeste Andrews COMMUNICATIONS SCIENTIST.CHAINSTITCH Z[employer]PER SETTER Work Phone: [facility] 08-13-2024 12:41-0400 Systolic blood pressure 131 mm[Hg] Celeste Andrews COMMUNICATIONS SCIENTIST.CH[employer]STITCH Z[employer]PER SETTER Work Phone: [facility] 07-22-2024 22:00-0400 Diastolic blood pressure 81 mm[Hg] [facility] 07-22-2024 22:00-0400 Heart rate 81 /min [facility] 07-22-2024 22:00-0400 Mean blood pressure 100 mm[Hg] [facility] 07-22-2024 22:00-0400 SaO2% (BldA) [Mass fraction] 94 % [facility] 07-22-2024 22:00-0400 Systolic blood pressure 138 mm[Hg] [facility] 07-22-2024 21:04-0400 Body temperature 98.06 [degF] [facility] 07-22-2024 21:04-0400 Diastolic blood pressure 103 mm[Hg] [facility] 07-22-2024 21:04-0400 Heart rate 80 /min [facility] 07-22-2024 21:04-0400 Mean blood pressure 110 mm[Hg] [facility] 07-22-2024 21:04-0400 Respiratory rate 18 /min [facility] 07-22-2024 21:04-0400 SaO2% (BldA) [Mass fraction] 93 % [facility] 07-22-2024 21:04-0400 Systolic blood pressure 125 mm[Hg] [facility] 07-22-2024 19:50-0400 Diastolic blood pressure 94 mm[Hg] [facility] 07-22-2024 19:50-0400 Heart rate 85 /min [facility] 07-22-2024 19:50-0400 Mean blood pressure 110 mm[Hg] [facility] 07-22-2024 19:50-0400 Respiratory rate 18 /min [facility] 07-22-2024 19:50-0400 SaO2% (BldA) [Mass fraction] 93 % [facility] 07-22-2024 19:50-0400 Systolic blood pressure 142 mm[Hg] [facility] 07-22-2024 19:27-0400 Respiratory rate 16 /min [facility] 07-22-2024 17:51-0400 Respiratory rate 18 /min [facility] 07-22-2024 17:00-0400 Body temperature 98.42 [degF] [facility] 07-22-2024 17:00-0400 Heart rate 74 /min [facility] 07-21-2024 10:20-0400 Diastolic blood pressure 86 mm[Hg] Dbeorah Norman MD Work Phone: [facility] 07-21-2024 10:20-0400 Respiratory rate 16 /min Deborah Norman MD Work Phone: [facility] 07-21-2024 10:20-0400 SaO2% (BldA) [Mass fraction] 92 % Deborah Norman MD Work Phone: [facility] 07-21-2024 10:20-0400 Systolic blood pressure 127 mm[Hg] Deborah Norman MD Work Phone: [facility] 07-21-2024 10:00-0400 Body temperature 97 [degF] Deborah Norman MD Work Phone: [facility] 07-21-2024 09:00-0400 Body mass index (BMI) [Ratio] 32.73 kg/m2 Deborah Norman MD Work Phone: [facility] 07-21-2024 09:00-0400 Body weight 112.49 kg Deborah Norman MD Work Phone: [facility] 03-12-2024 09:12-0400 Body height 185.4 cm Minerva Anderson MD Work Phone: [facility] 03-12-2024 09:12-0400 Body mass index (BMI) [Ratio] 32.79 kg/m2 Minerva Anderson MD Work Phone: [facility] 03-12-2024 09:12-0400 Body temperature 97.11 [degF] Minerva Anderson MD Work Phone: [facility] 03-12-2024 09:12-0400 Body weight 112.7 kg Minerva Anderson MD Work Phone: [facility] 03-12-2024 09:12-0400 Diastolic blood pressure 84 mm[Hg] Minreva Anderson MD Work Phone: [facility] 03-12-2024 09:12-0400 Heart rate 81 /min Minerva Anderson MD Work Phone: [facility] 03-12-2024 09:12-0400 Respiratory rate 16 /min Minerva Anderson MD Work Phone: [facility] 03-12-2024 09:12-0400 SaO2% (BldA) [Mass fraction] 98 % Minerva Anderson MD Work Phone: [facility] 03-12-2024 09:12-0400 Systolic blood pressure 124 mm[Hg] Minerva Anderson MD Work Phone: [facility] 02-25-2024 12:00-0400 Diastolic blood pressure 78 mm[Hg] Deborah Norman MD Work Phone: [facility] 02-25-2024 12:00-0400 Heart rate 64 /min Deborah Norman MD Work Phone: [facility] 02-25-2024 12:00-0400 Respiratory rate 21 /min Deborah Norman MD Work Phone: [facility] 02-25-2024 12:00-0400 SaO2% (BldA) [Mass fraction] 94 % Deborah Norman MD Work Phone: [facility] 02-25-2024 12:00-0400 Systolic blood pressure 130 mm[Hg] Deborah Norman MD Work Phone: [facility] 02-25-2024 11:39-0400 Body temperature 97 [degF] Deborah Norman MD Work Phone: [facility] 02-25-2024 10:50-0400 Body height 185.4 cm Deborah Norman MD Work Phone: [facility] 02-25-2024 10:50-0400 Body mass index (BMI) [Ratio] 33.51 kg/m2 Deborah Norman MD Work Phone: [facility] 02-25-2024 10:50-0400 Body weight 115.21 kg Deborah Norman MD Work Phone: [facility] 02-14-2024 09:51-0400 Blood Pressure Location Corey SINGLETON [facility] 02-14-2024 09:51-0400 Diastolic blood pressure 74 mm[Hg] Corey SINGLE[facility] 02-14-2024 09:51-0400 Heart rate 80 /min Corey SINGLETON [facility] 02-14-2024 09:51-0400 Respiratory rate 16 /min Corey SINGLETON [facility] 02-14-2024 09:51-0400 Systolic blood pressure 122 mm[Hg] Corey SINGLETON [facility] 01-28-2024 07:54-0400 Blood Pressure Location Pato Peña [facility] 01-28-2024 07:54-0400 Diastolic blood pressure 80 mm[Hg] Pato Peña [facility] 01-28-2024 07:54-0400 Heart rate 66 /min Pato Peña [facility] 01-28-2024 07:54-0400 SaO2% (BldA) [Mass fraction] 96 % Pato Peña [facility] 01-28-2024 07:54-0400 Systolic blood pressure 128 mm[Hg] Pato Peña [facility] 10-09-2023 12:56-0500 Diastolic blood pressure 71 mm[Hg] Joanne Webster [facility] 10-09-2023 12:56-0500 Heart rate 76 /min Joanne Webster [facility] 10-09-2023 12:56-0500 Mean blood pressure 82 mm[Hg] Joanne Webster [facility] 10-09-2023 12:56-0500 Systolic blood pressure 103 mm[Hg] Joanne Webster [facility] 07-16-2023 08:20-0400 Body height 187.96 cm Valencia Webster Other [employer] Other 07-16-2023 08:20-0400 Body mass index (BMI) [Ratio] 30.55 kg/m2 [facility] Other [employer] Other 07-16-2023 08:20-0400 Body weight 107.96 kg [facility] Other [employer] Other 07-16-2023 08:20-0400 Diastolic blood pressure 90 mm[Hg] [employer] Other [employer] Other 07-16-2023 08:20-0400 Systolic blood pressure 128 mm[Hg] [employer] Other [employer] Other 07-09-2023 10:10-0400 Diastolic blood pressure 79 mm[Hg] Deborah Norman MD Work Phone: [facility] 07-09-2023 10:10-0400 Heart rate 57 /min Deborah Norman MD Work Phone: [facility] 07-09-2023 10:10-0400 Respiratory rate 19 /min Deborah Norman MD Work Phone: [facility] 07-09-2023 10:10-0400 SaO2% (BldA) [Mass fraction] 94 % Deborah Norman MD Work Phone: [facility] 07-09-2023 10:10-0400 Systolic blood pressure 109 mm[Hg] Deborah Norman MD Work Phone: [facility] 07-09-2023 09:46-0400 Body temperature 97.2 [degF] Deborah Norman MD Work Phone: [facility] 06-18-2023 14:00-0400 Body height 187.96 cm [facility] Other [employer] Other 06-18-2023 14:00-0400 Body mass index (BMI) [Ratio] 30.68 kg/m2 Valencia Webster Other [facility] [employer] Other 06-18-2023 14:00-0400 Body weight 108.41 kg Valencia Webster Other [place] [employer] Other 05-28-2023 10:06-0400 Body height 187.7 cm Minerva Anderson MD Work Phone: [facility] 05-28-2023 10:06-0400 Body temperature 97.59 [degF] Minerva Anderson MD Work Phone: [facility] 05-28-2023 10:06-0400 Body weight 105.96 kg Minerva Anderson MD Work Phone: [facility] 05-28-2023 10:06-0400 Diastolic blood pressure 86 mm[Hg] Minerva Anderson MD Work Phone: [facility] 05-28-2023 10:06-0400 Heart rate 64 /min Minerva Anderson MD Work Phone: [facility] 05-28-2023 10:06-0400 Respiratory rate 16 /min Minerva Anderson MD Work Phone: [facility] 05-28-2023 10:06-0400 SaO2% (BldA) [Mass fraction] 95 % Minerva Anderson MD Work Phone: [facility] 05-28-2023 10:06-0400 Systolic blood pressure 124 mm[Hg] Minerva Anderson MD Work Phone: [facility] 05-07-2023 13:15-0400 Diastolic blood pressure 68 mm[Hg] Bryon Cruz [facility] 05-07-2023 13:15-0400 Heart rate 42 /min Bryon Cruz [facility] 05-07-2023 13:15-0400 Mean blood pressure 82 mm[Hg] Bryon Cruz [facility] 05-07-2023 13:15-0400 Respiratory rate 14 /min Bryon Cruz [facility] 05-07-2023 13:15-0400 Systolic blood pressure 109 mm[Hg] Bryon Cruz [facility] 04-29-2023 08:32-0400 Blood Pressure Location Joanne SANCHEZ [facility] 04-29-2023 08:32-0400 Diastolic blood pressure 73 mm[Hg] Joanne SANCHEZ [facility] 04-29-2023 08:32-0400 Heart rate 61 /min Joanne SANCHEZ [facility] 04-29-2023 08:32-0400 SaO2% (BldA) [Mass fraction] 95 % Joanne SANCHEZ [facility] 04-29-2023 08:32-0400 Systolic blood pressure 116 mm[Hg] Joanne SANCHEZ [facility] 04-11-2023 09:30-0400 Body height 187.96 cm Valencia Webster Other [facility] [employer] Other 04-11-2023 09:30-0400 Body mass index (BMI) [Ratio] 29.78 kg/m2 Valencia Wesbter Other [employer] [facility] [employer] Other 04-11-2023 09:30-0400 Body weight 105.24 kg Valencia Webster Other [employer] Other 04-11-2023 09:30-0400 Diastolic blood pressure 82 mm[Hg] Valencia Webster Other [employer] Other 04-11-2023 09:30-0400 Systolic blood pressure 122 mm[Hg] Valencia Webster Other [place] [employer] Other 04-09-2023 13:30-0400 Diastolic blood pressure 95 mm[Hg] Deborah Norman MD Work Phone: [facility] 04-09-2023 13:30-0400 Heart rate 78 /min Deborah Norman MD Work Phone: [facility] 04-09-2023 13:30-0400 Respiratory rate 15 /min Deborah Norman MD Work Phone: [facility] 04-09-2023 13:30-0400 SaO2% (BldA) [Mass fraction] 95 % Deborah Norman MD Work Phone: [facility] 04-09-2023 13:30-0400 Systolic blood pressure 138 mm[Hg] Deborah Norman MD Work Phone: [facility] 04-09-2023 13:05-0400 Body temperature 97.3 [degF] Deborah Norman MD Work Phone: [facility] 03-21-2023 10:54-0400 Body temperature 97.81 [degF] Chair Arya Work Phone: [facility] 03-21-2023 10:54-0400 Diastolic blood pressure 74 mm[Hg] Chair Hillrose Work Phone: [facility] 03-21-2023 10:54-0400 Heart rate 63 /min Chair Hillrose Work Phone: [facility] 03-21-2023 10:54-0400 Respiratory rate 18 /min Chair Hillrose Work Phone: [facility] 03-21-2023 10:54-0400 SaO2% (BldA) [Mass fraction] 95 % Chair Hillrose Work Phone: [facility] 03-21-2023 10:54-0400 Systolic blood pressure 108 mm[Hg] Chair Arya Work Phone: [facility] 03-19-2023 08:39-0400 Body height 187.7 cm Minerva Anderson MD Work Phone: [facility] 03-19-2023 08:39-0400 Body temperature 97.2 [degF] Minerva Anderson MD Work Phone: [facility] 03-19-2023 08:39-0400 Body weight 110.04 kg Minerva Anderson MD Work Phone: [facility] 03-19-2023 08:39-0400 Diastolic blood pressure 70 mm[Hg] Minerva Anderson MD Work Phone: [facility] 03-19-2023 08:39-0400 Heart rate 69 /min Minerva Anderson MD Work Phone: [facility] 03-19-2023 08:39-0400 Respiratory rate 16 /min Minerva Anderson MD Work Phone: [facility] 03-19-2023 08:39-0400 SaO2% (BldA) [Mass fraction] 96 % Minerva Anderson MD Work Phone: [facility] 03-19-2023 08:39-0400 Systolic blood pressure 105 mm[Hg] Minerva Andreson MD Work Phone: [facility] 03-18-2023 10:40-0400 Body temperature 97.88 [degF] [facility] 03-18-2023 10:40-0400 Diastolic blood pressure 91 mm[Hg] [facility] 03-18-2023 10:40-0400 Heart rate 69 /min [facility] 03-18-2023 10:40-0400 Respiratory rate 18 /min [facility] 03-18-2023 10:40-0400 SaO2% (BldA) [Mass fraction] 96 % [facility] 03-18-2023 10:40-0400 Systolic blood pressure 142 mm[Hg] [facility] 03-13-2023 10:24-0400 Body temperature 96.69 [degF] JOSE Key MD Work Phone: [facility] 03-13-2023 10:24-0400 Body weight 108.41 kg JOSE Key MD Work Phone: [facility] 03-13-2023 10:24-0400 Diastolic blood pressure 70 mm[Hg] JOSE Key MD Work Phone: [facility] 03-13-2023 10:24-0400 Heart rate 60 /min JOSE Key MD Work Phone: [facility] 03-13-2023 10:24-0400 Respiratory rate 18 /min JOSE Key MD Work Phone: [facility] 03-13-2023 10:24-0400 SaO2% (BldA) [Mass fraction] 98 % JOSE Key MD Work Phone: [facility] 03-13-2023 10:24-0400 Systolic blood pressure 106 mm[Hg] JOSE Key MD Work Phone: [facility] 02-21-2023 11:33-0400 Body temperature 97.5 [degF] Chair Arya Work Phone: [facility] 02-21-2023 11:33-0400 Diastolic blood pressure 75 mm[Hg] Chair Hillrose Work Phone: [facility] 02-21-2023 11:33-0400 Heart rate 57 /min Chair Hillrose Work Phone: [facility] 02-21-2023 11:33-0400 Respiratory rate 18 /min Chair Arya Work Phone: [facility] 02-21-2023 11:33-0400 SaO2% (BldA) [Mass fraction] 97 % Chair Hillrose Work Phone: [facility] 02-21-2023 11:33-0400 Systolic blood pressure 112 mm[Hg] Chair Hillrose Work Phone: [facility] 02-19-2023 09:21-0400 Body height 187.7 cm Minerva Anderson MD Work Phone: [facility] 02-19-2023 09:21-0400 Body temperature 97.3 [degF] Minerva Anderson MD Work Phone: [facility] 02-19-2023 09:21-0400 Body weight 111.4 kg Minerva Anderson MD Work Phone: [facility] 02-19-2023 09:21-0400 Diastolic blood pressure 88 mm[Hg] Minerva Anderson MD Work Phone: [facility] 02-19-2023 09:21-0400 Heart rate 61 /min Minerva Anderson MD Work Phone: [facility] 02-19-2023 09:21-0400 Respiratory rate 18 /min Minerva Anderson MD Work Phone: [facility] 02-19-2023 09:21-0400 SaO2% (BldA) [Mass fraction] 96 % Minerva Anderson MD Work Phone: [facility] 02-19-2023 09:21-0400 Systolic blood pressure 107 mm[Hg] Minerva Anderson MD Work Phone: [facility] 02-07-2023 14:38-0400 Body weight 110.59 kg Deborah Norman MD Work Phone: [facility] 02-07-2023 14:38-0400 Diastolic blood pressure 69 mm[Hg] Deborah Norman MD Work Phone: [facility] 02-07-2023 14:38-0400 Heart rate 77 /min Deborah Norman MD Work Phone: [facility] 02-07-2023 14:38-0400 SaO2% (BldA) [Mass fraction] 98 % Deborah Norman MD Work Phone: [facility] 02-07-2023 14:38-0400 Systolic blood pressure 110 mm[Hg] Deborah Norman MD Work Phone: [facility] 02-07-2023 10:08-0400 Body temperature 98.6 [degF] Chair Hillrose Work Phone: [facility] 02-07-2023 10:08-0400 Diastolic blood pressure 69 mm[Hg] Chair Hillrose Work Phone: [facility] 02-07-2023 10:08-0400 Heart rate 62 /min Chair Arya Work Phone: [facility] 02-07-2023 10:08-0400 Respiratory rate 18 /min Chair Hillrose Work Phone: [facility] 02-07-2023 10:08-0400 SaO2% (BldA) [Mass fraction] 96 % Chair Hillrose Work Phone: [facility] 02-07-2023 10:08-0400 Systolic blood pressure 99 mm[Hg] Chair Arya Work Phone: [facility] 02-04-2023 13:40-0400 Body weight 108.86 kg Micha Mccabe MD Work Phone: [facility] 02-04-2023 13:40-0400 Diastolic blood pressure 69 mm[Hg] Micha Mccabe MD Work Phone: [facility] 02-04-2023 13:40-0400 Heart rate 76 /min Micha Mccabe MD Work Phone: [facility] 02-04-2023 13:40-0400 Systolic blood pressure 105 mm[Hg] Micha Mccabe MD Work Phone: [facility] 01-24-2023 10:49-0400 Body temperature 97.5 [degF] Chair Hillrose Work Phone: [facility] 01-24-2023 10:49-0400 Diastolic blood pressure 68 mm[Hg] Chair Hillrose Work Phone: [facility] 01-24-2023 10:49-0400 Heart rate 59 /min Chair Arya Work Phone: [facility] 01-24-2023 10:49-0400 Respiratory rate 18 /min Chair Hillrose Work Phone: [facility] 01-24-2023 10:49-0400 SaO2% (BldA) [Mass fraction] 97 % Chair Arya Work Phone: [facility] 01-24-2023 10:49-0400 Systolic blood pressure 96 mm[Hg] Chair Hernandezy Work Phone: [facility] 01-22-2023 15:50-0400 Blood Pressure Location Santiago Kong [facility] 01-22-2023 15:50-0400 Diastolic blood pressure 76 mm[Hg] Santiago Kong [facility] 01-22-2023 15:50-0400 Heart rate 103 /min Santiago Kong [facility] 01-22-2023 15:50-0400 SaO2% (BldA) [Mass fraction] 96 % Santiago Kong [facility] 01-22-2023 15:50-0400 Systolic blood pressure 126 mm[Hg] Santiago Kong [facility] 01-22-2023 09:15-0400 Body temperature 97.7 [degF] Chair Koenig Work Phone: [facility] 01-22-2023 09:15-0400 Diastolic blood pressure 75 mm[Hg] Chair Hillrose Work Phone: [facility] 01-22-2023 09:15-0400 Heart rate 59 /min Chair Hillrose Work Phone: [facility] 01-22-2023 09:15-0400 Respiratory rate 18 /min Chair Hillrose Work Phone: [facility] 01-22-2023 09:15-0400 SaO2% (BldA) [Mass fraction] 97 % Chair Hillrose Work Phone: [facility] 01-22-2023 09:15-0400 Systolic blood pressure 111 mm[Hg] Chair Arya Work Phone: [facility] 01-10-2023 09:59-0400 Body temperature 98.01 [degF] Chair Arya Work Phone: [facility] 01-10-2023 09:59-0400 Diastolic blood pressure 84 mm[Hg] Chair Hillrose Work Phone: [facility] 01-10-2023 09:59-0400 Heart rate 61 /min Chair Hillrose Work Phone: [facility] 01-10-2023 09:59-0400 Respiratory rate 18 /min Chair Hillrose Work Phone: [facility] 01-10-2023 09:59-0400 SaO2% (BldA) [Mass fraction] 98 % Chair Arya Work Phone: [facility] 01-10-2023 09:59-0400 Systolic blood pressure 129 mm[Hg] Chair Hillrose Work Phone: [facility] 01-08-2023 08:19-0400 Body height 187.7 cm Minerva Anderson MD Work Phone: [facility] 01-08-2023 08:19-0400 Body temperature 97.2 [degF] Minerva Anderson MD Work Phone: [facility] 01-08-2023 08:19-0400 Body weight 113.31 kg Minerva Anderson MD Work Phone: [facility] 01-08-2023 08:19-0400 Diastolic blood pressure 73 mm[Hg] Minerva Anderson MD Work Phone: [facility] 01-08-2023 08:19-0400 Heart rate 68 /min Minerva Anderson MD Work Phone: [facility] 01-08-2023 08:19-0400 Respiratory rate 16 /min Minerva Anderson MD Work Phone: [facility] 01-08-2023 08:19-0400 SaO2% (BldA) [Mass fraction] 98 % Minerva Anderson MD Work Phone: [facility] 01-08-2023 08:19-0400 Systolic blood pressure 107 mm[Hg] Minerva Anderson MD Work Phone: [facility] 12-27-2022 10:25-0500 Body temperature 97.59 [degF] Chair Hillrose Work Phone: [facility] 12-27-2022 10:25-0500 Diastolic blood pressure 59 mm[Hg] Chair Hillrose Work Phone: [facility] 12-27-2022 10:25-0500 Heart rate 65 /min Chair Hillrose Work Phone: [facility] 12-27-2022 10:25-0500 Respiratory rate 16 /min Chair Hillrose Work Phone: [facility] 12-27-2022 10:25-0500 SaO2% (BldA) [Mass fraction] 97 % Chair Arya Work Phone: [facility] 12-27-2022 10:25-0500 Systolic blood pressure 92 mm[Hg] Chair Arya Work Phone: [facility] 12-17-2022 15:11-0500 Body height 186.2 cm Minerva Anedrson MD Work Phone: [facility] 12-17-2022 15:11-0500 Body temperature 97.3 [degF] Minerva Anderson MD Work Phone: [facility] 12-17-2022 15:11-0500 Body weight 111.22 kg Minerva Anderson MD Work Phone: [facility] 12-17-2022 15:11-0500 Diastolic blood pressure 63 mm[Hg] Minerva Anderson MD Work Phone: [facility] 12-17-2022 15:11-0500 Heart rate 71 /min Minerva Anderson MD Work Phone: [facility] 12-17-2022 15:11-0500 Respiratory rate 16 /min Minerva Anderson MD Work Phone: [facility] 12-17-2022 15:11-0500 SaO2% (BldA) [Mass fraction] 100 % Minerva Anderson MD Work Phone: [facility] 12-17-2022 15:11-0500 Systolic blood pressure 111 mm[Hg] Minerva Anderson MD Work Phone: [facility] 11-19-2022 14:32-0500 Body height 186.2 cm Minerva Anderson MD Work Phone: [facility] 11-19-2022 14:32-0500 Body temperature 97.59 [degF] Minerva Anderson MD Work Phone: [facility] 11-19-2022 14:32-0500 Body weight 110.5 kg Minerva Anderson MD Work Phone: [facility] 11-19-2022 14:32-0500 Diastolic blood pressure 87 mm[Hg] Minerva Anderson MD Work Phone: [facility] 11-19-2022 14:32-0500 Heart rate 77 /min Minerva Anderson MD Work Phone: [facility] 11-19-2022 14:32-0500 Respiratory rate 16 /min Minerva Anderson MD Work Phone: [facility] 11-19-2022 14:32-0500 SaO2% (BldA) [Mass fraction] 98 % Minerva Anderson MD Work Phone: [facility] 11-19-2022 14:32-0500 Systolic blood pressure 126 mm[Hg] Minerva Anderson MD Work Phone: [facility] 11-19-2022 14:12-0500 Body temperature 97.39 [degF] JOSE Key MD Work Phone: [facility] 11-19-2022 14:12-0500 Body weight 110.5 kg JOSE Key MD Work Phone: [facility] 11-19-2022 14:12-0500 Diastolic blood pressure 61 mm[Hg] JOSE Key MD Work Phone: [facility] 11-19-2022 14:12-0500 Heart rate 76 /min JOSE Key MD Work Phone: [facility] 11-19-2022 14:12-0500 Respiratory rate 16 /min JOSE Key MD Work Phone: [facility] 11-19-2022 14:12-0500 SaO2% (BldA) [Mass fraction] 98 % JOSE Key MD Work Phone: [facility] 11-19-2022 14:12-0500 Systolic blood pressure 95 mm[Hg] JOSE Key MD Work Phone: [facility] 11-12-2022 14:08-0500 Body temperature 97.5 [degF] JOSE Key MD Work Phone: [facility] 11-12-2022 14:08-0500 Body weight 110.86 kg JOSE Key MD Work Phone: [facility] 11-12-2022 14:08-0500 Diastolic blood pressure 65 mm[Hg] JOSE Key MD Work Phone: [facility] 11-12-2022 14:08-0500 Heart rate 89 /min JOSE Key MD Work Phone: [facility] 11-12-2022 14:08-0500 Respiratory rate 18 /min JOSE Key MD Work Phone: [facility] 11-12-2022 14:08-0500 SaO2% (BldA) [Mass fraction] 96 % JOSE Key MD Work Phone: [facility] 11-12-2022 14:08-0500 Systolic blood pressure 99 mm[Hg] JOSE Key MD Work Phone: [facility] 11-05-2022 15:06-0500 Body temperature 96.3 [degF] JOSE Key MD Work Phone: [facility] 11-05-2022 15:06-0500 Body weight 112.49 kg JOSE Key MD Work Phone: [facility] 11-05-2022 15:06-0500 Diastolic blood pressure 80 mm[Hg] JOSE Key MD Work Phone: [facility] 11-05-2022 15:06-0500 Heart rate 74 /min JOSE Key MD Work Phone: [facility] 11-05-2022 15:06-0500 Respiratory rate 18 /min JOSE Key MD Work Phone: [facility] 11-05-2022 15:06-0500 SaO2% (BldA) [Mass fraction] 94 % JOSE Key MD Work Phone: [facility] 11-05-2022 15:06-0500 Systolic blood pressure 112 mm[Hg] JOSE Key MD Work Phone: [facility] 10-29-2022 15:18-0500 Body height 186.2 cm Andree Hollis APRN.CHAINSTITCH ZIPPER SETTER Work Phone: [facility] 10-29-2022 15:18-0500 Body temperature 96.69 [degF] Andree Hollis APRN.CHAINSTITCH ZIPPER SETTER Work Phone: [facility] 10-29-2022 15:18-0500 Body weight 111.13 kg Andree Hollis APRN.CHAINSTITCH ZIPPER SETTER Work Phone: [facility] 10-29-2022 15:18-0500 Diastolic blood pressure 73 mm[Hg] Andree Hollis APRN.CHAINSTITCH ZIPPER SETTER Work Phone: [facility] 10-29-2022 15:18-0500 Heart rate 78 /min Andree Hollis APRN.CHAINSTITCH ZIPPER SETTER Work Phone: [facility] 10-29-2022 15:18-0500 Respiratory rate 16 /min Andree Hollis COMMUNICATIONS SCIENTIST.CHAINSTITCH ZIPPER SETTER Work Phone: [facility] 10-29-2022 15:18-0500 SaO2% (BldA) [Mass fraction] 100 % Andree Hollis COMMUNICATIONS SCIENTIST.CHAINSTITCH ZIPPER SETTER Work Phone: [facility] 10-29-2022 15:18-0500 Systolic blood pressure 112 mm[Hg] Andree Hollis COMMUNICATIONS SCIENTIST.CHAINSTITCH ZIPPER SETTER Work Phone: [facility] 10-29-2022 14:36-0500 Body temperature 96.69 [degF] Dennis Cheung MD Work Phone: [facility] 10-29-2022 14:36-0500 Body weight 111.13 kg Dennis Cheung MD Work Phone: [facility] 10-29-2022 14:36-0500 Diastolic blood pressure 73 mm[Hg] Dennis Cheung MD Work Phone: [facility] 10-29-2022 14:36-0500 Heart rate 78 /min Dennis Cheung MD Work Phone: [facility] 10-29-2022 14:36-0500 Respiratory rate 16 /min Dennis Cheung MD Work Phone: [facility] 10-29-2022 14:36-0500 SaO2% (BldA) [Mass fraction] 100 % Dennis Cheung MD Work Phone: [facility] 10-29-2022 14:36-0500 Systolic blood pressure 112 mm[Hg] Dennis Cheung MD Work Phone: [facility] 10-24-2022 10:11-0500 Blood Pressure Location ASHLEY TRINIDAD [facility] 10-24-2022 10:11-0500 Diastolic blood pressure 69 mm[Hg] ASHLEY TRINIDAD [facility] 10-24-2022 10:11-0500 Heart rate 70 /min ASHLEY TRINIDAD [facility] 10-24-2022 10:11-0500 Respiratory rate 16 /min ASHLEY TRINIDAD [facility] 10-24-2022 10:11-0500 Systolic blood pressure 117 mm[Hg] ASHLEY TRINIDAD [facility] 10-23-2022 08:11-0500 Body temperature 97.3 [degF] JOSE Key MD Work Phone: [facility] 10-23-2022 08:11-0500 Body weight 112.04 kg JOSE Key MD Work Phone: [facility] 10-23-2022 08:11-0500 Diastolic blood pressure 69 mm[Hg] JOSE Key MD Work Phone: [facility] 10-23-2022 08:11-0500 Heart rate 78 /min JOSE Key MD Work Phone: [facility] 10-23-2022 08:11-0500 Respiratory rate 16 /min JOSE Key MD Work Phone: [facility] 10-23-2022 08:11-0500 SaO2% (BldA) [Mass fraction] 97 % JOSE Key MD Work Phone: [facility] 10-23-2022 08:11-0500 Systolic blood pressure 110 mm[Hg] JOSE Key MD Work Phone: [facility] 10-16-2022 13:33-0500 Body temperature 97.39 [degF] JOSE Key MD Work Phone: [facility] 10-16-2022 13:33-0500 Body weight 111.4 kg JOSE Key MD Work Phone: [facility] 10-16-2022 13:33-0500 Diastolic blood pressure 60 mm[Hg] JOSE Key MD Work Phone: [facility] 10-16-2022 13:33-0500 Heart rate 69 /min JOSE Key MD Work Phone: [facility] 10-16-2022 13:33-0500 Respiratory rate 18 /min JOSE Key MD Work Phone: [facility] 10-16-2022 13:33-0500 SaO2% (BldA) [Mass fraction] 95 % JOSE Key MD Work Phone: [facility] 10-16-2022 13:33-0500 Systolic blood pressure 97 mm[Hg] JOSE Key MD Work Phone: [facility] 10-11-2022 14:49-0500 Body height 186.2 cm Andree Hollis APRN.CHAINSTITCH ZIPPER SETTER Work Phone: [facility] 10-11-2022 14:49-0500 Body temperature 97.59 [degF] Andree Hollis APRN.CHAINSTITCH ZIPPER SETTER Work Phone: [facility] 10-11-2022 14:49-0500 Body weight 113.22 kg Andree Hollis APRN.CHAINSTITCH ZIPPER SETTER Work Phone: [facility] 10-11-2022 14:49-0500 Diastolic blood pressure 82 mm[Hg] Andree Hollis APRN.CHAINSTITCH ZIPPER SETTER Work Phone: [facility] 10-11-2022 14:49-0500 Heart rate 97 /min Andree Hollis APRN.CHAINSTITCH ZIPPER SETTER Work Phone: [facility] 10-11-2022 14:49-0500 Respiratory rate 16 /min Andree Hollis APRN.CHAINSTITCH ZIPPER SETTER Work Phone: [facility] 10-11-2022 14:49-0500 SaO2% (BldA) [Mass fraction] 96 % Andree Hollis APRN.CHAINSTITCH ZIPPER SETTER Work Phone: [facility] 10-11-2022 14:49-0500 Systolic blood pressure 147 mm[Hg] Andree Hollis APRN.CNP Work Phone: [facility] 10-03-2022 13:30-0500 Blood Pressure Location Joanneportia SANCHEZ [facility] 10-03-2022 13:30-0500 Diastolic blood pressure 70 mm[Hg] Joanne SANCHEZ [facility] 10-03-2022 13:30-0500 Heart rate 90 /min Joanneportia SANCHEZ [facility] 10-03-2022 13:30-0500 Respiratory rate 18 /min Joanne SANCHEZ [facility] 10-03-2022 13:30-0500 SaO2% (BldA) [Mass fraction] 96 % Joanne SANCHEZ [facility] 10-03-2022 13:30-0500 Systolic blood pressure 110 mm[Hg] Joanne SANCHEZ [facility] 10-02-2022 14:30-0500 Body height 186.2 cm Minerva Anderson MD Work Phone: [facility] 10-02-2022 14:30-0500 Body temperature 97.81 [degF] Minerva Anderson MD Work Phone: [facility] 10-02-2022 14:30-0500 Body weight 113.94 kg Minerva Anderson MD Work Phone: [facility] 10-02-2022 14:30-0500 Diastolic blood pressure 78 mm[Hg] Minerva Anderson MD Work Phone: [facility] 10-02-2022 14:30-0500 Heart rate 83 /min Minerva Anderson MD Work Phone: [facility] 10-02-2022 14:30-0500 Respiratory rate 18 /min Minerva Anderson MD Work Phone: [facility] 10-02-2022 14:30-0500 SaO2% (BldA) [Mass fraction] 97 % Minerva Anderson MD Work Phone: [facility] 10-02-2022 14:30-0500 Systolic blood pressure 113 mm[Hg] Minerva Anderson MD Work Phone: [facility] 09-20-2022 07:56-0500 Body temperature 96.69 [degF] JOSE Key MD Work Phone: [facility] 09-20-2022 07:56-0500 Body weight 113.31 kg JOSE Key MD Work Phone: [facility] 09-20-2022 07:56-0500 Diastolic blood pressure 70 mm[Hg] JOSE Key MD Work Phone: [facility] 09-20-2022 07:56-0500 Heart rate 66 /min JOSE Key MD Work Phone: [facility] 09-20-2022 07:56-0500 Respiratory rate 18 /min JOSE Key MD Work Phone: [facility] 09-20-2022 07:56-0500 SaO2% (BldA) [Mass fraction] 97 % JOSE Key MD Work Phone: [facility] 09-20-2022 07:56-0500 Systolic blood pressure 106 mm[Hg] JOSE Key MD Work Phone: [facility] 09-17-2022 16:03-0500 Body height 186.2 cm Minerva Anderson MD Work Phone: [facility] 09-17-2022 16:03-0500 Body temperature 97.5 [degF] Minerva Anderson MD Work Phone: [facility] 09-17-2022 16:03-0500 Body weight 111.22 kg Minerva Anderson MD Work Phone: [facility] 09-17-2022 16:03-0500 Diastolic blood pressure 72 mm[Hg] Minerva Anderson MD Work Phone: [facility] 11-28-2022 16:03-0500 Heart rate 68 /min Minerva Anderson MD Work Phone: [facility] 09-17-2022 16:03-0500 Respiratory rate 16 /min Minerva Anderson MD Work Phone: [facility] 09-17-2022 16:03-0500 SaO2% (BldA) [Mass fraction] 97 % Minerva Anderson MD Work Phone: [facility] 09-17-2022 16:03-0500 Systolic blood pressure 135 mm[Hg] Minerva Anderson MD Work Phone: [facility] 08-20-2022 08:15-0400 Diastolic blood pressure 101 mm[Hg] Mervat NILL [facility] 08-20-2022 08:15-0400 Heart rate 68 /min Mervat NILL [facility] 08-20-2022 08:15-0400 Respiratory rate 18 /min Mervat NILL [facility] 08-20-2022 08:15-0400 SaO2% (BldA) [Mass fraction] 96 % Mervat NILL [facility] 08-20-2022 08:15-0400 Systolic blood pressure 139 mm[Hg] Mervat NILL [facility] 08-20-2022 08:12-0400 Diastolic blood pressure 97 mm[Hg] Mervat NILL [facility] 08-20-2022 08:12-0400 Heart rate 67 /min Mervat NILL [facility] 08-20-2022 08:12-0400 Respiratory rate 10 /min Mervat NILL [facility] 08-20-2022 08:12-0400 SaO2% (BldA) [Mass fraction] 96 % Mervat NILL [facility] 08-20-2022 08:12-0400 Systolic blood pressure 130 mm[Hg] Mervat NILL [facility] 08-20-2022 08:05-0400 Diastolic blood pressure 92 mm[Hg] Mervat NILL [facility] 08-20-2022 08:05-0400 Heart rate 69 /min Mervat NILL [facility] 08-20-2022 08:05-0400 Respiratory rate 14 /min Mervat NILL [facility] 08-20-2022 08:05-0400 SaO2% (BldA) [Mass fraction] 93 % Mervat NILL [facility] 08-20-2022 08:05-0400 Systolic blood pressure 127 mm[Hg] Mervat NILL [facility] 08-20-2022 07:50-0400 Body temperature 97.7 [degF] Mervat NILL [facility] 08-20-2022 07:45-0400 Respiratory rate 14 /min Mervat NILL [facility] 08-20-2022 07:40-0400 Respiratory rate 13 /min Mervat NILL [facility] 08-20-2022 07:35-0400 Respiratory rate 14 /min Mervat NILL [facility] 08-20-2022 07:10-0400 Blood Pressure Location Mervat NILL [facility] 08-20-2022 07:10-0400 Body temperature 96.98 [degF] Mervat NILL [facility] 08-14-2022 08:42-0400 Blood Pressure Location Mervat NILL [facility] [place] 08-14-2022 08:42-0400 Diastolic blood pressure 67 mm[Hg] Mervat NILL [facility] [place] 08-14-2022 08:42-0400 Heart rate 63 /min Mervat NILL [facility] [place] 08-14-2022 08:42-0400 Respiratory rate 16 /min Mervat NILL [facility] [place] 08-14-2022 08:42-0400 Systolic blood pressure 114 mm[Hg] Mervat NILL [facility] 05-31-2022 10:53-0400 Blood Pressure Location VALERIE SIDELL [facility] 05-31-2022 10:53-0400 Diastolic blood pressure 70 mm[Hg] VALERIE SIDELL [facility] 05-31-2022 10:53-0400 Heart rate 74 /min VALERIE SIDELL [facility] 05-31-2022 10:53-0400 SaO2% (BldA) [Mass fraction] 96 % VALERIE SIDELL [facility] 05-31-2022 10:53-0400 Systolic blood pressure 114 mm[Hg] VALERIE SIDELL [facility] 04-03-2022 10:55-0400 Blood Pressure Location Joanne SANCHEZ [facility] 04-03-2022 10:55-0400 Diastolic blood pressure 62 mm[Hg] Joanne SANCHEZ [facility] 04-03-2022 10:55-0400 Heart rate 76 /min Joanne SANCHEZ [facility] 04-03-2022 10:55-0400 Respiratory rate 18 /min Joanne SANCHEZ [facility] 04-03-2022 10:55-0400 SaO2% (BldA) [Mass fraction] 96 % Joanne SANCHEZ [facility] 04-03-2022 10:55-0400 Systolic blood pressure 98 mm[Hg] Joanne SANCHEZ [facility] Encounters Encounter Date Encounter Type Care Provider Facility Start: 08-05-2025 ambulatory Corey Barraza ty:CD:[id number] Start: 07-19-2025 End: 07-19-2025 ambulatory TARI ENCARNACION Facility:[facility] Start: 07-19-2025 End: 07-19-2025 ambulatory MINERVA ANDERSON Facility:[facility] Start: 07-15-2025 ambulatory MINERVA ANDERSON Facility:[facility] Start: 07-13-2025 ambulatory MINERVA ANDERSON Facility :[facility] Start: 07-12-2025 End: 07-12-2025 ambulatory Chandrika Camacho Facility:[facility] Start: 07-12-2025 End: 07-12-2025 Patient encounter procedure Chandrika Camacho [facility] Start: 07-01-2025 End: 07-01-2025 ambulatory Olivia Varghese [facility] Start: 06-18-2025 End: 06-18-2025 Telephone encounter Tari Encarnacion MD Work Phone: Hematology/Oncology Comment on above: Orders Start: 06-18-2025 End: 06-18-2025 Emergency department patient visit Yuridia Houser [facility] Start: 04-28-2025 End: 04-28-2025 Bamboo flowsheet Chelsie MEHTA Work Phone: [facility] Start: 04-28-2025 End: 04-28-2025 Bamboo flowsheet Chelsie MEHTA Work Phone: [facility] Start: 04-28-2025 End: 04-28-2025 Office outpatient visit 25 minutes Chelsie MEHTA Work Phone: [facility] Comment on above: Right elbow pain (Pr imary Dx); Effusion of right elbow; Arthritis of right elbow Start: 04-28-2025 End: 04-28-2025 ambulatory CHELSIE FERNANDO Not Available Start: 04-12-2025 End: 04-12-2025 Patient encounter procedure Minerva Anderson MD Work Phone: Hematology/Oncology Start: 04-12-2025 End: 04-12-2025 ambulatory [facility] Arya Work Phone: Hematology/Oncology Comment on above: Malignant neoplasm o f rectum (HCC) Malignant neoplasm o f rectum (HCC) (Primary Dx); Rheumatoid arthritis involving multiple sites, unspecified whether rheumatoid factor present (HCC); Primary hypercoagulable state (HCC) Start: 04-08-2025 End: 04-08-2025 Telephone encounter Nelia Carlson Research Coordinator [facility] Adult Start: 03-31-2025 End: 03-31-2025 Patient encounter procedure Deborah Norman MD Work Phone: Colorectal Surgery Comment on above: BRBPR (bright red bl ood per rectum) (Primary Dx) Start: 03-31-2025 End: 03-31-2025 ambulatory [facility] Facility:[facility] Start: 03-18-2025 End: 03-19-2025 Telephone encounter Deborah Norman MD Work Phone: Colorectal Surgery Comment on above: Patient Question Start: 03-18-2025 End: 03-18-2025 ambulatory [facility] Work Phone: Start: 03-18-2025 End: 03-18-2025 Patient encounter procedure [facility] Work Phone: Start: 03-10-2025 End: 03-10-2025 ambulatory XXXX NONE [place] Start: 03-10-2025 End: 03-10-2025 Patient encounter procedure Pato Peña [facility] Start: 03-08-2025 End: 03-08-2025 Orders Only Deborah Norman MD Work Phone: Colorectal Surgery Comment on above: Encounter for follow -up surveillance of rectal cancer (Primary Dx) Start: 02-15-2025 End: 02-15-2025 ambulatory Corey SINGLETON Facility:[facility] Start: 01-26-2025 End: 01-26-2025 ambulatory Pato Peña [facility] Start: 01-26-2025 End: 01-26-2025 Patient encounter procedure Pato Peña [facility] Start: 01-11-2025 End: 01-11-2025 Office outpatient visit 25 minutes Minerva Anderson MD Work Phone: Hematology/Oncology Comment on above: Malignant neoplasm o f rectum (HCC) (Primary Dx); Right lower quadrant abdominal abscess (HCC) Start: 01-11-2025 End: 01-11-2025 ambulatory [facility] Hillrose Work Phone: Hematology/Oncology Comment on above: Malignant neoplasm o f rectum (HCC) (Primary Dx) Start: 01-04-2025 End: 01-04-2025 ambulatory DEBORAH NORMAN Facility:[facility] Start: 01-04-2025 ambulatory MINERVA ANDERSON Facility :[facility] Start: 01-04-2025 End: 01-04-2025 Subsequent hospital visit by physician Victor Manuel Aguero (I-Stat/1.5t) Work Phone: Radiology Comment on above: Malignant neoplasm o f rectum (HCC) [C20] Start: 01-01-2025 End: 01-01-2025 Telephone encounter Monty WOODSON Radiology Comment on above: Appointment (Appoint ment reminder call - spoke with patient - gave directions to the office) Start: 12-31-2024 End: 12-31-2024 Telephone encounter Deborah Norman MD Work Phone: Colorectal Surgery Start: 12-29-2024 End: 12-29-2024 Telephone encounter Deborah Norman MD Work Phone: Colorectal Surgery Comment on above: Patient Question Start: 12-28-2024 End: 12-28-2024 ambulatory LORENZO MARIN Facility:[facility] Start: 12-28-2024 End: 12-28-2024 Patient encounter procedure Celeste Almeidamarcial COMMUNICATIONS SCIENTIST.CHAINSTITCH ZIPPER SETTER Work Phone: Colorectal Surgery Comment on above: RLQ abdominal pain ( Primary Dx); S/P right colectomy; Intra-abdominal abscess (HCC); 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 Start: 12-25-2024 End: 12-25-2024 Follow-up encounter Minerva Anderson MD Work Phone: Hematology/Oncology Start: 12-25-2024 End: 12-25-2024 Telephone encounter Deborah Norman MD Work Phone: Colorectal Surgery Comment on above: Results Start: 12-24-2024 End: 12-24-2024 Telephone encounter Minerva Anderson MD Work Phone: Hematology/Oncology Comment on above: Orders Start: 12-24-2024 End: 12-24-2024 ambulatory MINERVA ANDERSON Facility:[facility] Start: 12-24-2024 End: 12-24-2024 Subsequent hospital visit by physician Arrival Time Radiology Work Phone: Radiology Pet CT Comment on above: Malignant neoplasm o f rectum (HCC) [C20] Start: 12-17-2024 End: 12-19-2024 ambulatory NEGAR KWAN [facility] Start: 12-17-2024 End: 12-19-2024 Subsequent hospital visit by physician Negar Pinedo MD Work Phone: [facility] Ultrasound Comment on above: Right lower quadrant abdominal pain Start: 12-07-2024 End: 12-07-2024 Office outpatient visit 25 minutes Minerva Anderson MD Work Phone: Hematology/Oncology Comment on above: Malignant neoplasm o f rectum (HCC) (Primary Dx); Right lower quadrant abdominal pain Start: 12-07-2024 End: 12-07-2024 ambulatory Lab/[facility] [place] Arya Work Phone: Hematology/Oncology Comment on above: Malignant neoplasm o f rectum (HCC) (Primary Dx) Start: 11-25-2024 End: 11-25-2024 ambulatory KARI DIAZ Facility:[facility] Start: 11-24-2024 ambulatory [facility] Facility:[facility] Start: 11-24-2024 End: 11-24-2024 Subsequent hospital visit by physician Deborah Norman MD Work Phone: Procedures Comment on above: Encounter for follow -up surveillance of rectal cancer [Z08, Z85.048] Start: 11-10-2024 End: 11-10-2024 Refill Minerva Anderson MD Work Phone: Hematology/Oncology Comment on above: Refill Request Start: 11-10-2024 End: 11-10-2024 Telephone encounter Minal Corey RN Hematology/Oncology Comment on above: Results Start: 11-10-2024 End: 11-10-2024 Office outpatient visit 25 minutes Kari MEHTA-C Work Phone: Hematology/Oncology Comment on above: Intra-abdominal and pelvic swelling, mass and lump, unspecified site (Primary Dx); Malignant neoplasm of rectum (HCC) Start: 11-10-2024 End: 11-10-2024 ambulatory Lab/Port [place] [facility] [place] Work Phone: Hematology/Oncology Comment on above: Malignant neoplasm o f rectum (HCC) Start: 11-10-2024 End: 11-10-2024 Subsequent hospital visit by physician Arrival Time Radiology Work Phone: Radiology Pet CT Comment on above: Intra-abdominal and pelvic swelling, mass and lump, unspecified site [R19.00] Start: 11-05-2024 End: 12-09-2024 Telephone encounter Denisha Duarte RN Work Phone: Hematology/Oncology Comment on above: Care Coordination (A bdominal Pain and Swelling) Lab Orders Start: 10-23-2024 End: 10-23-2024 Telephone encounter Deborah Norman MD Work Phone: Colorectal Surgery Comment on above: Results Start: 10-20-2024 End: 10-20-2024 ambulatory DANIEL WERNER [facility] Start: 10-20-2024 End: 10-20-2024 Lab Drop off DANIEL WERNER [facility] Start: 10-19-2024 End: 10-19-2024 Telephone encounter Deborah Norman MD Work Phone: Colorectal Surgery Comment on above: Patient Question Start: 10-07-2024 End: 10-09-2024 ambulatory [facility] Start: 10-07-2024 End: 10-09-2024 Subsequent hospital visit by physician [facility] Schedule [facility] Start: 09-27-2024 End: 09-27-2024 Emergency department patient visit Micky Cueto [facility] Start: 09-16-2024 End: 09-16-2024 ambulatory DAYANARA SULLIVAN Facility:[facility] Start: 09-16-2024 End: 09-16-2024 Patient encounter procedure Dayanara Sullivan COMMUNICATIONS SCIENTIST.CHAINSTITCH ZIPPER SETTER Work Phone: Colorectal Surgery Comment on above: Encounter for change or removal of drains (Primary Dx) Start: 09-15-2024 End: 09-15-2024 Telephone encounter Deborah Norman MD Work Phone: Colorectal Surgery Comment on above: Patient Question Start: 09-14-2024 End: 09-14-2024 Telephone encounter Deborah Norman MD Work Phone: Colorectal Surgery Comment on above: Patient Question Start: 09-10-2024 End: 09-10-2024 ambulatory XXXX NONE [place] Start: 09-10-2024 End: 09-10-2024 Patient encounter procedure Pato Peña [facility] Start: 09-08-2024 End: 09-08-2024 ambulatory MERVAT SOLORZANO Facility:[facility] Start: 09-08-2024 End: 09-08-2024 ambulatory MINREVA ANDERSON Facility:[facility] Start: 09-08-2024 End: 09-08-2024 Office outpatient visit 15 minutes Minerva Anderson MD Work Phone: Hematology/Oncology Comment on above: Malignant neoplasm o f rectum (HCC) (Primary Dx) Start: 09-07-2024 End: 09-07-2024 Telephone encounter Jaclyn Ramírez RN [facility] Radiol ogy Procedure Comment on above: Radiology Pre Proced ure Instructions Start: 09-04-2024 End: 09-04-2024 Telephone encounter Harvinder Harrell RN [facility] Radio logy Procedure Comment on above: Radiology Pre Proced ure Instructions Abscess (Primary Dx) Start: 09-04-2024 ambulatory LORENZO S TOMAS Facilit y:[facility] Start: 09-04-2024 End: 09-04-2024 Subsequent hospital visit by physician Gi/Gu 1 [facility] (I-Stat) Work Phone: Radiology Start: 09-04-2024 End: 09-06-2024 ambulatory [facility] Start: 09-04-2024 End: 09-06-2024 Subsequent hospital visit by physician [facility] Comment on above: Sleep apnea, unspeci fied type Start: 08-28-2024 End: 09-02-2024 Telephone encounter Mariluz Kolb RN Hematology/Oncology Comment on above: Patient Update Start: 08-27-2024 End: 08-27-2024 Telephone encounter Denisha Duarte RN Work Phone: Hematology/Oncology Comment on above: Care Coordination (A ppointment) Start: 08-25-2024 End: 08-25-2024 ambulatory UNKNOWN PROVIDER Facility:[facility] Start: 08-25-2024 End: 08-25-2024 Subsequent hospital visit by physician [facility] ([facility]) Work Phone: [facility] Radiology CT Scan Comment on above: Malignant neoplasm o f rectum (HCC) [C20] Start: 08-24-2024 End: 08-24-2024 Telephone encounter Deborah Norman MD Work Phone: Colorectal Surgery Comment on above: Patient Question Abscess (Primary Dx) Radiology Pre Proced ure Instructions Start: 08-19-2024 End: 08-19-2024 Telephone encounter Minal Corey RN Hematology/Oncology Comment on above: Orders Start: 08-19-2024 End: 10-12-2024 ambulatory MINERVA ANDERSON [facility] Start: 08-18-2024 End: 10-12-2024 ambulatory Maulik V HEMANTBLU [facility] Start: 08-14-2024 End: 08-18-2024 Evaluation and management of inpatient DEBORAH NORMAN Facility:[facility] Start: 08-13-2024 End: 08-13-2024 ambulatory MINERVA ROTHSCHILD Facility:[facility] Start: 08-13-2024 End: 08-13-2024 Subsequent hospital visit by physician [facility] (I-Stat) Work Phone: CT Scan Comment on above: Infection in abdomen (HCC) [K65.9] Start: 08-13-2024 End: 08-13-2024 ambulatory DEBORAH NORMAN Facility:[facility] Start: 08-13-2024 End: 08-13-2024 Patient encounter procedure Celeste Andrews APRN.CNP Work Phone: Colorectal Surgery Comment on above: Diarrhea of presumed infectious origin (Primary Dx); Chills; Infection in abdomen (HCC) Start: 08-05-2024 End: 08-06-2024 Telephone encounter Deborah Norman MD Work Phone: Gastroenterology Comment on above: Patient Update Start: 08-04-2024 End: 08-13-2024 Telephone encounter Deborah Norman MD Work Phone: Colorectal Surgery Start: 07-30-2024 End: 07-30-2024 Telephone encounter Denisha Duarte RN Work Phone: Hematology/Oncology Comment on above: Care Coordination (A ppointment Request) Start: 07-22-2024 End: 07-29-2024 Evaluation and management of inpatient LORENZO MARIN Facility:[facility] Start: 07-22-2024 End: 07-22-2024 Emergency department patient visit Yuridia Houser [place] Start: 07-22-2024 End: 07-22-2024 Telephone encounter Deborah Norman MD Work Phone: General Surgery Start: 07-21-2024 End: 07-21-2024 Orders Only Deborah Norman MD Work Phone: Colorectal Surgery Comment on above: Encounter for follow -up surveillance of rectal cancer (Primary Dx) Encounter for follow -up surveillance of rectal cancer [Z08, Z85.048] Start: 07-14-2024 End: 07-14-2024 Bamboo [employer]eger [place] ABheet Litographs PA Work Phone: [facility] Start: 07-14-2024 End: 07-14-2024 Bamboo flowsheet Litographs PA Work Phone: [facility] Start: 07-14-2024 End: 07-14-2024 Office outpatient new 30 minutes XiomaraKODA PA Work Phone: [facility] Comment on above: Bacterial folliculit is (Primary Dx); Seborrheic keratosis; Inflamed seborrheic keratosis; Acrochordon; Neoplasm of unspecified behavior of bone, soft tissue, and skin; Pain Start: 07-14-2024 End: 07-14-2024 ambulatory XIOMARA NORTHEIM Not Available Start: 07-08-2024 End: 07-08-2024 Bamboo flowsheet Chelsie Fernando PA Work Phone: [facility] Start: 07-08-2024 End: 07-08-2024 Bamboo flowsheet Chelsie Fernando PA Work Phone: [facility] Start: 07-08-2024 End: 07-08-2024 ambulatory CHELSIE FERNANDO Not Available Start: 07-08-2024 End: 07-08-2024 Office outpatient visit 15 minutes Chelsie MEHTA Work Phone: [facility] Comment on above: Right foot pain (Lani jaclyn Dx); Right ankle tendonitis Start: 06-26-2024 End: 06-29-2024 Telephone encounter Minerva Anderson MD Work Phone: Hematology/Oncology Comment on above: Orders Start: 06-04-2024 End: 06-04-2024 Subsequent hospital visit by physician M[facility] (Istat/3t) Work Phone: [facility] Radiology MRI Comment on above: Malignant neoplasm o f rectum (HCC) [C20] Start: 05-27-2024 End: 05-27-2024 ambulatory CHELSIE FERNANDO Not Available Start: 05-21-2024 End: 05-21-2024 ambulatory Lab/[facility] [place] Work Phone: Hematology/Oncology Start: 05-21-2024 End: 05-21-2024 Follow-up encounter Lab/[facility] [place] Work Phone: Hematology/Oncology Comment on above: Encounter for follow -up surveillance of rectal cancer Start: 05-21-2024 End: 05-21-2024 ambulatory SHAWN CAR Not Available Start: 05-19-2024 Orders Only Deborah Norman MD Work Phone: Colorectal Surgery Comment on above: Encounter for follow -up surveillance of rectal cancer (Primary Dx) Start: 05-18-2024 End: 05-18-2024 ambulatory CARRIE LEIGH Not Available Start: 05-14-2024 End: 05-14-2024 ambulatory LAINA MAYORGA Not Available Start: 05-11-2024 End: 05-11-2024 ambulatory SHAWN CAR Not Available Start: 05-05-2024 End: 05-05-2024 ambulatory CHELSIE FERNANDO Not Available Start: 03-27-2024 End: 03-27-2024 ambulatory SHANNON Craft [facility] Start: 03-12-2024 End: 03-12-2024 ambulatory Minerva Anderson MD Work Phone: Hematology/Oncology Comment on above: Malignant neoplasm o f rectum (HCC) (Primary Dx); Acute deep vein thrombosis (DVT) of distal vein of left lower extremity (HCC) Start: 03-12-2024 End: 03-12-2024 Patient encounter procedure Minerva Anderson MD Work Phone: Hematology/Oncology Start: 02-25-2024 End: 02-25-2024 Subsequent hospital visit by physician Deborah Norman MD Work Phone: Procedures Comment on above: Encounter for follow -up surveillance of rectal cancer [Z08, Z85.048] Start: 02-14-2024 End: 02-14-2024 Patient encounter procedure Corey SINGLETON [facility] Start: 02-14-2024 End: 02-14-2024 Patient encounter procedure Corey SINGLETON [facility] Start: 02-11-2024 End: 02-11-2024 ambulatory Lab/[facility] [place] Work Phone: Hematology/Oncology Start: 02-11-2024 End: 02-11-2024 Follow-up encounter Lab/[facility] [place] Work Phone: Hematology/Oncology Comment on above: Encounter for follow -up surveillance of rectal cancer; Rectal cancer (HCC) Start: 01-28-2024 End: 01-28-2024 Patient encounter procedure Pato Peña [facility] Start: 01-06-2024 End: 01-06-2024 ambulatory Lab/[facility] [place] Work Phone: [facility] Start: 01-06-2024 End: 01-06-2024 Follow-up encounter Lab/[facility] [place] Work Phone: Hematology/Oncology Comment on above: Encounter for follow -up surveillance of rectal cancer Start: 12-30-2023 End: 12-31-2023 ambulatory Abhinav Mazariegos MD Facility: [facility] Start: 12-23-2023 Telephone encounter Minal Cain Hematology/Oncology Comment on above: Results Start: 12-20-2023 End: 12-20-2023 Subsequent hospital visit by physician Arrival Time Radiology Work Phone: Radiology Pet CT Comment on above: Malignant neoplasm o f rectum (HCC) [C20] Start: 12-03-2023 End: 12-03-2023 Subsequent hospital visit by physician [facility] (Istat/3t) Work Phone: [facility] Radiology MRI Comment on above: Malignant neoplasm o f rectum (HCC) [C20] Start: 10-10-2023 Follow-up encounter Deborah cain MD Work Phone: Colorectal Surgery Comment on above: Encounter for follow -up surveillance of rectal cancer (Primary Dx) Start: 10-10-2023 End: 10-10-2023 ambulatory Lab/[facility] Arya Work Phone: Hematology/Oncology Comment on above: Rectal cancer (HCC) (Primary Dx) Start: 10-09-2023 End: 10-09-2023 Pain Management Joanne Webster [facility] Start: 09-26-2023 Refill Minerva Anderson MD Work Phone: Hematology/Oncology Comment on above: Refill Request Start: 08-27-2023 Telephone encounter Minerva wong MD Work Phone: Cancer Appts Comment on above: Future Appointment Start: 08-22-2023 End: 08-22-2023 Patient encounter procedure Corey SINGLETON [facility] Start: 08-14-2023 End: 08-14-2023 ambulatory Lorenzo Marin Facility:[facility] Start: 08-14-2023 End: 08-14-2023 ambulatory DO Lorenzo Marin Work Phone: [facility] Work Phone: Start: 08-14-2023 End: 08-14-2023 Patient encounter procedure DO Lorenzo Marin Work Phone: [facility] [address] Work Phone: Start: 07-24-2023 Follow-up encounter Deborah cain MD Work Phone: Colorectal Surgery Comment on above: Encounter for follow -up surveillance of rectal cancer (Primary Dx) Start: 07-16-2023 End: 07-16-2023 ambulatory [facility] Other [facility] [employer] Other Start: 07-16-2023 Office outpatient vi sit 25 minutes [employer] [facility] Neurosurgery Start: 07-09-2023 End: 07-09-2023 Subsequent hospital visit by physician Deborah Norman MD Work Phone: Procedures Comment on above: Encounter for follow -up surveillance of rectal cancer [Z08, Z85.048] Start: 06-25-2023 Orders Only Deborah Norman MD Work Phone: Colorectal Surgery Comment on above: Malignant neoplasm o f rectum (HCC) (Primary Dx) Start: 06-20-2023 Telephone encounter Denisha mello RN Work Phone: Hematology/Oncology Comment on above: Library Consultant - O ther (Lab Results; Neuropathy) Start: 06-20-2023 End: 06-20-2023 Subsequent hospital visit by physician Arrival Time Radiology Work Phone: Radiology Pet CT Comment on above: Malignant neoplasm o f rectum (HCC) [C20] Start: 06-20-2023 End: 06-20-2023 ambulatory Lab/[facility] [place] Work Phone: Hematology/Oncology Comment on above: Rectal cancer (HCC) Start: 06-19-2023 Telephone encounter Denisha mello RN Work Phone: Hematology/Oncology Comment on above: Care Coordination (L ab Request) Start: 06-18-2023 End: 08-29-2023 ambulatory [employer] Other [facility] [employer] Other Start: 06-18-2023 Office outpatient vi sit 15 minutes Valencia Darin [facility] Neurosurgery Start: 06-17-2023 End: 06-27-2023 Pre-admission assessment Corey R RYLEE [facility] Start: 05-28-2023 End: 05-28-2023 Patient encounter procedure Minerva Anderson MD Work Phone: [facility] Start: 05-28-2023 End: 05-28-2023 ambulatory Lab/[facility] Arya Work Phone: Hematology/Oncology Comment on above: Rectal cancer (HCC) Rectal cancer (HCC) (Primary Dx); Neoplasm related pain (acute) (chronic); Rheumatoid arthritis involving multiple sites, unspecified whether rheumatoid factor present (HCC); Acute deep vein thrombosis (DVT) of distal vein of left lower extremity (HCC) Start: 05-22-2023 End: 05-22-2023 ambulatory Valencia Darin Facility:[facility] Start: 05-22-2023 End: 05-22-2023 ambulatory DO Lorenzo Marin Work Phone: [facility] Work Phone: Start: 05-22-2023 End: 05-22-2023 Patient encounter procedure DO Lorenzo Marin Work Phone: [facility] [address] [place] Work Phone: Start: 05-17-2023 End: 05-17-2023 Patient encounter procedure Bryon Cruz [facility] Start: 05-14-2023 Telephone encounter Denisha mello RN Work Phone: Hematology/Oncology Comment on above: Care Coordination (O rders ) Start: 05-07-2023 End: 05-07-2023 Pain Management Bryon Cruz [facility] Start: 05-06-2023 Refill Minerva Anderson MD Work Phone: [facility] Comment on above: Refill Request Start: 05-03-2023 Telephone encounter Deborah cain MD Work Phone: Colorectal Surgery Comment on above: Orders (Flex sig, CE A, MRI, CT) Library Consultant - O ther Appointment (Pt call ing to let Chelsie know that 07/09, Saturday would be his best option for colonoscopy. ) Start: 04-29-2023 End: 04-29-2023 Patient encounter procedure Joanne Tim JOSEDania [facility] Start: 04-18-2023 ambulatory DEBORAH NORMAN Facility:[facility] Start: 04-17-2023 Telephone encounter Denisha mello RN Work Phone: Hematology/Oncology Comment on above: Care Coordination (P otassium Results) Start: 04-16-2023 End: 04-16-2023 ambulatory Lab/[facility] Arya Work Phone: Hematology/Oncology Comment on above: Rectal cancer (HCC) Start: 04-11-2023 Encounter for other specified special examinations Valencia [facility] Neurosurgery Start: 04-11-2023 Office outpatient ne w 45 minutes Valencia [facility] Neurosurgery Start: 04-11-2023 End: 04-11-2023 ambulatory DO Lorenzo Marin Work Phone: [facility] Work Phone: Start: 04-11-2023 End: 04-11-2023 Patient encounter procedure DO Lorenzo Marin Work Phone: [facility] Work Phone: Start: 04-09-2023 End: 04-09-2023 Subsequent hospital visit by physician Deborah Norman MD Work Phone: Procedures Comment on above: Rectal cancer (HCC) [C20] Start: 03-26-2023 ambulatory [facility] Provider Paulino pappas Comment on above: Colonoscopy prep ins tructions Start: 03-26-2023 E-mail encounter artur m caregiver [facility] Provider [facility] G[facility]ES [facility] Start: 03-26-2023 Telephone encounter Deborah cain MD Work Phone: Colorectal Surgery Comment on above: Patient Question Care Coordination (M RI Question) Start: 03-21-2023 End: 03-21-2023 ambulatory Chair 20 Arya Work Phone: Hematology/Oncology Comment on above: Rectal cancer (HCC) (Primary Dx) Start: 03-20-2023 Telephone encounter Santiago Lema [facility] Work Phone: [facility] Comment on above: Results Start: 03-19-2023 End: 03-19-2023 Patient encounter procedure [...] 03-18-2023 End: 03-18-2023 [facility] Start: 03-13-2023 End: 03-13-2023 Patient encounter procedure Dania Key MD Work Phone: Radiation Oncology Comment on above: Rectal cancer (HCC) (Primary Dx); Malignant neoplasm of prostate (HCC) Start: 03-05-2023 End: 03-05-2023 ambulatory Chair 5 Arya Work Phone: Hematology/Oncology Comment on above: Rectal cancer (HCC) (Primary Dx) Start: 03-01-2023 Telephone encounter Minerva wong MD Work Phone: Hematology/Oncology Comment on above: Lab Orders Start: 02-26-2023 Telephone encounter Samantha Kash cuello [facility] Work Phone: [facility] HB-3 Comment on above: Medication Assistanc e (Approved for Free Xarelto) Start: 02-21-2023 End: 02-21-2023 ambulatory Chair 20 [place] Work Phone: Hematology/Oncology Comment on above: Rectal cancer (HCC) (Primary Dx) Start: 02-19-2023 End: 02-19-2023 Patient encounter procedure Minerva Anderson MD Work Phone: [employer] Start: 02-19-2023 End: 02-19-2023 ambulatory Minerva Anderson MD Work Phone: Hematology/Oncology Comment on above: Rectal cancer (HCC) (Primary Dx); Acute deep vein thrombosis (DVT) of distal vein of left lower extremity (HCC) Rectal cancer (HCC) (Primary Dx) Rectal cancer (HCC) Start: 02-07-2023 End: 02-07-2023 Patient encounter procedure Deborah Norman MD Work Phone: Colorectal Surgery Comment on above: Rectal cancer (HCC) (Primary Dx); Malignant neoplasm of rectum (HCC) Start: 02-07-2023 End: 02-07-2023 ambulatory Chair 20 [place] Work Phone: Hematology/Oncology Comment on above: Rectal cancer (HCC) (Primary Dx) Start: 02-04-2023 End: 02-04-2023 Patient encounter procedure Micha Mccabe MD Work Phone: Gastroenterology Comment on above: Rectal cancer (HCC) (Primary Dx); Rectal bleeding; Acute deep vein thrombosis (DVT) of distal vein of left lower extremity (HCC); Family history of pancreatic cancer; Family history of primary liver cancer Start: 01-24-2023 End: 01-24-2023 ambulatory Chair 20 Arya Work Phone: Hematology/Oncology Comment on above: Rectal cancer (HCC) (Primary Dx) Start: 01-23-2023 Refill Celeste gaona [facility] Work Phone: [facility] HB-[facility] Comment on above: Refill Request Care Coordination (D VT; Eliquis) Start: 01-22-2023 Telephone encounter Denisha mello RN Work Phone: Hematology/Oncology Comment on above: Care Coordination (U S Order) Start: 01-22-2023 End: 01-22-[address] Work Phone: [facility] Start: 01-22-2023 End: 01-22-20[address] Nutrition therapy [address] Owen RD Work Phone: Nutrition Therapy Comment on above: Nutrition Counseling Start: 01-22-2023 End: 01-22-2023 Patient encounter procedure Santiago Kong [facility] Start: 01-22-2023 End: 01-22-2023 ambulatory Lab/Port [facility] Arya Work Phone: Hematology/Oncology Comment on above: Rectal cancer (HCC) (Primary Dx) Rectal cancer (HCC) (Primary Dx); Leg swelling; Left ankle swelling Start: 01-18-2023 Telephone encounter Minerva wong MD Work Phone: Hematology/Oncology Comment on above: Lab Orders Start: 01-14-2023 Telephone encounter Denisha mello RN Work Phone: Hematology/Oncology Comment on above: Library Consultant - O ther (Rectal Bleeding) Start: 01-10-2023 End: 01-10-2023 Patient encounter procedure Joanne SANCHEZ [facility] Start: 01-10-2023 End: 01-10-2023 ambulatory Chair 20 [place] Work Phone: Hematology/Oncology Comment on above: Rectal cancer (HCC) (Primary Dx) Start: 01-08-2023 End: 01-08-[address] Work Phone: Nutrition Therapy Comment on above: Nutrition Assessment Start: 01-08-2023 End: 01-08-2023 Patient encounter procedure Minerva Anderson MD Work Phone: [facility] Start: 01-08-2023 End: 01-08-2023 ambulatory Lab/Port [facility] [place] Work Phone: Hematology/Oncology Comment on above: Rectal cancer (HCC) Rectal cancer (HCC) (Primary Dx) Start: 12-28-2022 Telephone encounter Lucy Goetz RN Work Phone: Hematology/Oncology Comment on above: Care Coordination (C 1D1 treatment follow up call) Start: 12-27-2022 End: 12-27-2022 ambulatory Chair Pema Koenig Work Phone: Hematology/Oncology Comment on above: Rectal cancer (HCC) (Primary Dx) Start: 12-25-2022 End: 12-25-2022 ambulatory Lab/Port [facility] Arya Work Phone: Hematology/Oncology Comment on above: Rectal cancer (HCC) Rectal cancer (HCC) (Primary Dx) Start: 12-20-2022 ambulatory Denisha casillas RN Work Phone: Hematology/Oncology Comment on above: Chemotherapy Treatme nt (Oxaliplatin, Leucovorin, 5FU) Start: 12-20-2022 Telephone encounter Celeste Bray [facility] Work Phone: Hematology/Oncology Comment on above: Erroneous encounter- disregard Start: 12-19-2022 Telephone encounter Milton Arndt RN [facility] Radiology Procedure Comment on above: Radiology [...] encounter Minerva wong MD Work Phone: Cancer [facility] Comment on above: Referral Information (Port placement) Start: 12-10-2022 End: 12-10-2022 Subsequent hospital visit by physician Arrival Time Radiology Work Phone: Radiology Pet CT Comment on above: Lung nodules [R91.8] Start: 11-20-2022 Telephone encounter Katerina Hargrove RN Hematology/Oncology Comment on above: Results Start: 11-19-2022 End: 11-19-2022 ambulatory Minerva Anderson MD Work Phone: Hematology/Oncology Comment on above: Rectal cancer (HCC) (Primary Dx); Lung nodules; Cancer related pain Start: 11-19-2022 End: 11-19-2022 Patient encounter procedure Dania Kye MD Work Phone: Radiation Oncology Comment on above: Rectal cancer (HCC) (Primary Dx) Start: 11-19-2022 Radiation Oncology Note Dania Key MD Work Phone: Radiation Oncology Comment on above: Completion Note Start: 11-15-2022 End: 11-15-2022 Patient encounter procedure Dania Key MD Work Phone: Radiation Oncology Comment on above: Rectal cancer (HCC) (Primary Dx) Start: 11-12-2022 End: 11-12-2022 Patient encounter procedure Dania Key MD Work Phone: Radiation Oncology Comment on above: Rectal cancer (HCC) (Primary Dx) Start: 11-08-2022 End: 11-08-2022 Patient encounter procedure Lab/Port [facility] Work Phone: Radiation Oncology Comment on above: Rectal cancer (HCC) Start: 11-07-2022 Telephone encounter Andree eaton APRN.CNP Work Phone: Radiation Oncology Comment on above: Pain Orders Start: 11-05-2022 End: 11-05-2022 Patient encounter procedure Dania Key MD Work Phone: Radiation Oncology Comment on above: Rectal cancer (HCC) (Primary Dx) Start: 10-29-2022 End: 10-29-2022 ambulatory Andree Hollis APRN.CHAINSTITCH ZIPPER SETTER Work Phone: Hematology/Oncology Comment on above: Rectal cancer (HCC) (Primary Dx); Abnormal PET scan of lung; Pulmonary embolus with infarction (HCC); Rheumatoid arthritis involving multiple sites, unspecified whether rheumatoid factor present (HCC) Start: 10-29-2022 End: 10-29-2022 Patient encounter procedure Andree Hollis APRN.CHAINSTITCH ZIPPER SETTER Work Phone: [facility] Comment on above: Rectal cancer (HCC) (Primary Dx) Start: 10-24-2022 Refill Jaclyn Brewer [facility] Start: 10-24-2022 End: 10-24-2022 Patient encounter procedure ASHLEY TRINIDAD [facility] Start: 10-23-2022 End: 10-23-2022 Patient encounter procedure Dania Key MD Work Phone: Radiation Oncology Comment on above: Rectal adenocarcinom a (HCC) Start: 10-19-2022 End: 10-19-[address] Work Phone: [facility] Start: 10-19-2022 End: 10-19-20[address] Owen RD Work Phone: Nutrition Therapy Comment on above: Nutrition Counseling Start: 10-16-2022 End: 10-16-2022 Patient encounter procedure Dania Key MD Work Phone: Radiation Oncology Comment on above: Rectal adenocarcinom a (HCC) (Primary Dx) Start: 10-11-2022 End: 10-11-2022 ambulatory Andree Hollis APRN.CHAINSTITCH ZIPPER SETTER Work Phone: Hematology/Oncology Comment on above: Rectal cancer (HCC) (Primary Dx); Pulmonary embolus with infarction (HCC) Start: 10-11-2022 End: 10-11-2022 Patient encounter procedure Andree Hollis MARIA ELENA Work Phone: [facility] Start: 10-11-2022 Telephone encounter Denisha Gerald Hematology/Oncology Comment on above: Care Coordination (O ral Anti-Cancer Agent Follow Up) Start: 10-09-2022 Telephone encounter Hang garay MD Work Phone: [facility] End[facility] - ENDO Comment on above: Appointment Start: 10-08-2022 End: 10-08-2022 ambulatory Hang Sarabia MD Work Phone: Pulmonology Comment on above: Adenopathy (Primary Dx); Rectal adenocarcinoma (HCC); Rheumatoid arthritis involving multiple sites, unspecified whether rheumatoid factor present (HCC) Start: 10-08-2022 End: 10-08-2022 Telemedicine consultation with patient Hang Sarabia MD Work Phone: [facility] Start: 10-08-2022 End: 10-08-2022 Patient encounter procedure Dania Key MD Work Phone: Radiation Oncology Comment on [...] Start: 10-03-2022 End: 10-03-2022 Patient encounter procedure Joanne SANCHEZ [facility] Start: 10-03-2022 End: 10-03-2022 Patient encounter procedure Joanne SANCHEZ [facility] Start: 10-02-2022 End: 10-02-2022 Patient encounter [...] Capecitabine) Start: 10-01-2022 End: 10-01-2022 ambulatory Lorenzo Marin Facility:[facility] Start: 10-01-2022 End: 10-01-2022 ambulatory DO Lorenzo Marin Work Phone: [facility] Work Phone: Start: 10-01-2022 End: 10-01-2022 Patient encounter procedure DO Lorenzo Marin Work Phone: [facility] [place] Start: 10-01-2022 Telephone encounter Denisha Duarte Hematology/Oncology Comment on above: Care Coordination (A ntiemetics) Start: 09-28-2022 Telephone encounter Dania Key MD Work Phone: Radiation Oncology Comment on above: Cough Start: 09-26-2022 Telephone encounter Dania Key MD Work Phone: Radiation Oncology Comment on above: Appointment Social Work Services Start: 09-25-2022 End: 09-25-[address] Work Phone: [facility] Start: 09-25-2022 End: 09-25-[address] Work Phone: Nutrition Therapy Comment on above: Nutrition Assessment Start: 09-25-2022 Telephone encounter Denisha Duarte Hematology/Oncology Comment on above: Care Coordination (T reatment Planning) Start: 09-25-2022 End: 09-25-2022 Subsequent hospital visit by physician Arrival Time Radiology Work Phone: Radiology Pet [facility] Comment on above: Rectal cancer (HCC) [C20] Start: 09-24-2022 End: 09-24-2022 Patient encounter procedure Dania Key MD Work Phone: Radiation Oncology Comment on above: Rectal adenocarcinom a (HCC) (Primary Dx) Start: 09-24-2022 Radiation Oncology Note Dania Key MD Work Phone: Radiation Oncology Comment on above: Treatment Planning Start: 09-24-2022 End: 09-24-2022 Subsequent hospital visit by physician Dania Key MD Work Phone: Radiology Pet CT Comment on above: Rectal adenocarcinom a (HCC) [C20] Start: 09-20-2022 ambulatory Sonam Horowitz RN Radiati on Oncology Comment on above: Patient Education Start: 09-20-2022 Telephone encounter Minerva wong MD [facility] Comment on above: Future Appointment Start: 09-20-2022 End: 09-20-2022 Patient encounter procedure Dania Key MD Work Phone: Radiation Oncology Comment on [...] Minerva Anderson MD Work Phone: [facility] Start: 09-17-2022 Chart abstracting Minerva del cid MD Work Phone: Hematology/Oncology Start: 09-11-2022 End: 09-12-2022 ambulatory [facility] Start: 09-06-2022 Telephone encounter Minal Cain Hematology/Oncology Comment on above: Appointment Start: 09-05-2022 End: 09-05-2022 ambulatory [facility] Start: 08-22-2022 End: 08-22-2022 ambulatory [facility] Start: 08-20-2022 End: 08-20-2022 Patient encounter procedure Mervat SLAUGHTER [facility] Start: 08-14-2022 End: 08-14-2022 Patient encounter procedure Mervat Alec KASANDRA [facility] General [facility] [place] Start: 08-06-2022 End: 02-14-2023 Recurring JONAH CONNELL [facility] Start: 05-31-2022 End: 05-31-2022 Lab Drop off VALERIE Nunes ALEJANDRA [facility] Start: 05-31-2022 End: 05-31-2022 Patient encounter procedure VALERIE Nunes ALEJANDRA [facility] Start: 04-30-2022 End: 07-29-2022 Recurring JONAH CONNELL [facility] Start: 04-03-2022 End: 04-03-2022 Patient encounter procedure Joanne SANCHEZ [facility] Start: 11-07-2021 End: 02-05-2022 Patient encounter procedure Lorenzo MARIN [facility] Start: 04-04-2021 Encounter for preprocedural laboratory examination [facility] Start: 04-03-2021 End: 04-03-[address] LORENZO MARIN Facility:[facility] Start: 03-31-2021 Encounter for preprocedural cardiovascular examination [facility] Start: 03-31-2021 Encounter for preprocedural laboratory examination [facility] Start: 03-28-2021 End: 03-29-[address] LORENZO MARIN Facility:[facility] Start: 03-28-2021 End: 03-29-2021 Encounter for preprocedural laboratory examination DR LORENZO MARIN Facility:[facility] Start: 03-23-2021 End: 03-24-2021 ambulatory SONAM ZAMBRANO Facility:[facility] Start: 03-23-2021 End: 03-24-2021 Encounter for preprocedural cardiovascular examination SONAM ZAMBRANO Facility:[facility] Start: 02-02-2021 End: 02-03-2021 ambulatory [facility] Facility:[facility] Procedures Date Procedure Procedure Detail Performing Clinician Start: 04-28-2025 Radex elbow complete minimum 3 views Chelsie MEHTA Work Phone: Start: 04-12-2025 Blood count complete auto&auto difrntl wbc Minerva Anderson MD Work Phone: Start: 01-04-2025 Mri pelvis w/o & w/c ontrast material Minerva Anderson MD Work Phone: Start: 12-24-2024 Ct abdomen & pelvis w/contrast material Minerva Anderson MD Work Phone: Start: 12-24-2024 Ct thorax w/contrast material Minerva Anderson MD Work Phone: Start: 12-24-2024 Blood count complete auto&auto difrntl wbc Floresita Vick APRN.CNP Work Phone: Start: 12-17-2024 Us abdominal real ti me w/image documentation Negar Pinedo MD Work Phone: Start: 12-07-2024 Blood count complete auto&auto difrntl wbc Minerva Anderson MD Work Phone: Start: 11-24-2024 Sigmoidoscopy flx dx w/collj spec br/wa if pfrmd Deborah Norman MD Work Phone: Start: 11-10-2024 Ct pelvis w/contrast material Kari Dahl Emily PA-C Work Phone: Start: 11-10-2024 Blood count complete auto&auto difrntl wbc Kari Dahl Emily PA-C Work Phone: Start: 09-04-2024 Cntrst njx assmt abs c/concierge receptionist via drg cath/tube spx Deborah Norman MD Work Phone: Start: 08-19-2024 Partial resection of colon Pato Peña Start: 08-14-2024 Antibody screen MINERVA العلي Comment on above: Order Comment: Speci men Type: BLOOD SPECIMENOrdering Facility: [facility] Address: [address] [place] [address] Performed By: #### T SCR ####MARITZA BLOOD BANKCLIA [id number] [address] Start: 08-13-2024 Ct abdomen & pelvis w/contrast material Celeste Andrews COMMUNICATIONS SCIENTIST.CHAINSTITCH ZIPPER SETTER Work Phone: Start: 08-13-2024 Basic metabolic pane l calcium total Celeste Andrews COMMUNICATIONS SCIENTIST.CHAINSTITCH ZIPPER SETTER Work Phone: Start: 07-22-2024 Antibody screen MINERVA العلي Comment on above: Order Comment: Speci men Type: BLOOD SPECIMENOrdering Facility: [facility] Address: [address] [place] [address] Performed By: #### T SCR ####MARITZA BLOOD BANKCLIA [id number] [address] Start: 07-21-2024 Colonoscopy flx dx w /collj spec when pfrmd Deborah Norman MD Work Phone: Start: 07-21-2024 Colonoscopy Deborah cain MD Work Phone: Start: 07-14-2024 SKIN / NAIL BIOPSY Ben Greco PA Work Phone: Start: 07-14-2024 CRYOTHERAPY SKIN LESION Xiomara Greco PA Work Phone: Start: 07-08-2024 CAST / SPLINT / FX Kiko magdalene Fernando PA Work Phone: Start: 02-25-2024 Sigmoidoscopy flx dx w/collj spec br/wa if pfrmd Deborah Norman MD Work Phone: Start: 02-11-2024 Blood count complete auto&auto difrntl wbc Minerva Anderson MD Work Phone: Start: 12-20-2023 Ct abdomen & pelvis w/contrast material Minerva Anderson MD Work Phone: Start: 12-20-2023 Ct thorax w/contrast material Minerva Anderson MD Work Phone: Start: 12-20-2023 Blood count complete auto&auto difrntl wbc Minerva Anderson MD Work Phone: Start: 12-03-2023 Mri pelvis w/o & w/c ontrast material Deborah Norman MD Work Phone: Start: 08-22-2023 Urodynamic studies Shelbi SINGLETON Start: 08-14-2023 MR lumbar spine wo con DO Lorenzo Marin Work Phone: Start: 07-09-2023 Sigmoidoscopy flx dx w/collj spec br/wa if pfrmd Deborah Norman MD Work Phone: Start: 06-20-2023 Ct abdomen w/contras t material Deborah Norman MD Work Phone: Start: 06-20-2023 Ct thorax w/contrast material Deborah Norman MD Work Phone: Start: 06-20-2023 Blood count complete auto&auto difrntl wbc Kari Diaz PA-C Work Phone: Start: 06-03-2023 End: 06-04-2023 Transurethral cystoscopy Corey SINGLETON Start: 05-28-2023 Blood count complete auto&auto difrntl wbc Minerva Anderson MD Work Phone: Start: 05-22-2023 MRI of cervical spin e with contrast DO Lorenzo Marin Work Phone: Start: 04-16-2023 Blood count complete auto&auto difrntl wbc Minerva Anderson MD Work Phone: Start: 04-11-2023 Plain x-ray of pelvi s and lower extremity DO Lorenzo Tomas Work Phone: Start: 04-11-2023 X-ray of cervical spine DO Lorenzo Tomas Work Phone: Start: 04-09-2023 Level iv surg pathol ogy gross&microscopic exam Deborah Norman MD Work Phone: Start: 04-09-2023 Colonoscopy flx dx w /collj spec when pfrmd Deborah Norman MD Work Phone: Start: 04-09-2023 Colonoscopy Lab/Port Asim andchicho Work Phone: Start: 03-19-2023 Blood count complete auto&auto difrntl wbc Andree Hollis COMMUNICATIONS SCIENTIST.CHAINSTITCH ZIPPER SETTER Work Phone: Start: 02-19-2023 Blood count complete auto&auto difrntl wbc Minerva Anderson MD Work Phone: Start: 01-08-2023 Basic metabolic pane l calcium total Minerva Anderson MD Work Phone: Start: 12-25-2022 Blood count complete auto&auto difrntl wbc Minerva Anderson MD Work Phone: Start: 12-17-2022 Blood count complete auto&auto difrntl wbc Minerva Anderson MD Work Phone: Start: 12-10-2022 Ct abdomen & pelvis w/contrast material Minerva Anderson MD Work Phone: Start: 12-10-2022 Ct thorax w/contrast material Minerva Anderson MD Work Phone: Start: 11-08-2022 Blood count complete auto&auto difrntl wbc G Saeed Key MD Work Phone: Start: 09-25-[address] atten uation skull base mid-thigh Minerva Anderson MD Work Phone: Start: 09-25-2022 Gluc bld gluc mntr d ev cleared fda spec home use [facility] Provider Start: 08-20-2022 Sigmoidoscopy Mervat BANUELOS Start: 02-24-2019 Cataract extraction and insertion of intraocular lens Lorenzo MARIN Comment on above: left Start: 02-12-2019 Cataract extraction and insertion of intraocular lens Lorenzo MARIN Start: 01-01-2018 Laparoscopic repair of inguinal hernia Lorenzo MARIN Comment on above: ROBOTIC ASSISTED RIG HT INGUINAL HERNIA REPAIR WITH MESH Start: 05-23-2016 Cystoscopy Lorenzo HAGER Start: 03-22-2016 Extracorporeal shock wave lithotripsy of calculus of kidney Lorenzo MARIN Comment on above: 01/05/2016, 03/08/20 16 Start: 12-22-2015 Extracorporeal shock wave lithotripsy of calculus of kidney Lorenzo TOMAS Comment on above: 12/15/2015 Start: 09-28-2015 Cystoscopy Lorenzo GR ANT Cervical arthrodesis Lorenzo MARIN Cervical arthrodesis Mervat SLAUGHTER Colonoscopy Lorenzo MARIN Hammer toe operation Lorenzo MARIN Hemorrhoidectomy Mervat Dumont Plan of Treatment Date Care Activity Detail Author Start: 07-21-2034 Screening for malignant neoplasm of colon [facility] Start: 04-09-2033 Screening for malignant neoplasm of colon [facility] Start: 11-24-2029 Screening for malignant neoplasm of colon [facility] Start: 02-24-2029 Screening for malignant neoplasm of colon [facility] Start: 11-05-2028 Screening for malignant neoplasm of colon [facility] Start: 07-09-2028 Colorectal Cancer Screening Colorectal Cancer Screening [facility] Start: 07-09-2028 Screening for malignant neoplasm of colon [facility] Start: 07-09-2028 SIGMOIDOSCOPY SIGMOIDOSCOPY [facility] Start: 04-12-2028 Diabetes Screening Diabetes Screening [facility] Start: 01-12-2028 Diabetes Screening Diabetes Screening [facility] Start: 12-25-2027 Diabetes Screening Diabetes Screening [facility] Start: 12-07-2027 Diabetes Screening Diabetes Screening [facility] Start: 11-10-2027 Diabetes Screening Diabetes Screening [facility] Start: 2027 RSV Vaccine (1 - 1-dose 75+ series) RSV Vaccine (1 - 1-dose 75+ series) [facility] Start: 09-27-2027 Diabetes Screening Diabetes Screening [facility] Start: 09-08-2027 Diabetes Screening Diabetes Screening [facility] Start: 08-18-2027 Diabetes Screening Diabetes Screening [facility] Start: 08-13-2027 Diabetes Screening Diabetes Screening [facility] Start: 07-29-2027 Diabetes Screening Diabetes Screening [facility] Start: 07-22-2027 Diabetes Screening Diabetes Screening [facility] Start: 02-10-2027 Diabetes Screening Diabetes Screening [facility] Start: 12-19-2026 Diabetes Screening Diabetes Screening [facility] Start: 11-21-2026 Diabetes Screening Diabetes Screening [facility] Start: 08-27-2026 Diabetes Screening Diabetes Screening [facility] Start: 06-20-2026 DIABETES SCREEN DIABETES SCREEN [facility] Start: 06-20-2026 Diabetes Screening Diabetes Screening [facility] Start: 05-28-2026 DIABETES SCREEN DIABETES SCREEN [facility] Start: 05-14-2026 DIABETES SCREEN DIABETES SCREEN [facility] Start: 04-16-2026 DIABETES SCREEN DIABETES SCREEN [facility] Start: 03-19-2026 DIABETES SCREEN DIABETES SCREEN [facility] Start: 03-05-2026 DIABETES SCREEN DIABETES SCREEN [facility] Start: 02-19-2026 DIABETES SCREEN DIABETES SCREEN [facility] Start: 02-05-2026 DIABETES SCREEN DIABETES SCREEN [facility] Start: 01-22-2026 DIABETES SCREEN DIABETES SCREEN [facility] Start: 01-08-2026 DIABETES SCREEN DIABETES SCREEN [facility] Start: 12-25-2025 DIABETES SCREEN DIABETES SCREEN [facility] Start: 12-17-2025 DIABETES SCREEN DIABETES SCREEN [facility] Start: 12-15-2025 Depression Screen Depression Screen [facility] Start: 11-19-2025 DIABETES SCREEN DIABETES SCREEN [facility] Start: 10-29-2025 DIABETES SCREEN DIABETES SCREEN [facility] Start: 10-11-2025 DIABETES SCREEN DIABETES SCREEN [facility] Start: 10-08-2025 End: 10-08-2025 Patient encounter procedure 10/08/2025 10:00 AM EST Office Visit Colorectal Surgery [address] [place] [address] [place] [address] [place] [address] F/up per Dr. Norman Colorectal Surgery Comment on above: F/up per Dr. Norman Start: 10-02-2025 DIABETES SCREEN DIABETES SCREEN [facility] Start: 09-17-2025 DIABETES SCREEN DIABETES SCREEN [facility] Start: 07-21-2025 Screening for malignant neoplasm of colon Colonoscopy [facility] Start: 07-19-2025 End: 07-19-2025 ambulatory 07/19/2025 3:00 PM EDT Visit (SP) Office Hematology/Oncology [address] [facility] [place] [address] Tari Encarnacion MD [address] [place] [address] 3 month FISH/BRM for MRI ct and lab results Hematology/Oncology Comment on above: 3 month FISH/BRM for MRI ct and lab resul ts Start: 07-15-2025 End: 10-14-2025 Carcinoembryonic Ag [Mass/volume] in Serum or Plasma CARCINOEMBRYONIC ANTIGEN Lab Routine Malignant neoplasm of rectum (HCC) Expected: 07/15/2025 (Approximate), Expires: 10/14/2025 [facility] Comment on above: Expected: 07/15/2025 (Approximate), Expi res: 10/14/2025 Start: 07-15-2025 End: 10-14-2025 CBC W Auto Differential panel - Blood COMPLETE BLOOD COUNT AND DIFFERENTIAL Lab Routine Malignant neoplasm of rectum (HCC) Expected: 07/15/2025 (Approximate), Expires: 10/14/2025 [facility] Comment on above: Expected: 07/15/2025 (Approximate), Expi res: 10/14/2025 Start: 07-15-2025 End: 10-14-2025 Comprehensive metabolic 2000 panel - Serum or Plasma COMPREHENSIVE METABOLIC PANEL Lab Routine Malignant neoplasm of rectum (HCC) Expected: 07/15/2025 (Approximate), Expires: 10/14/2025 [facility] Comment on above: Expected: 07/15/2025 (Approximate), Expi res: 10/14/2025 Start: 07-15-2025 End: 07-15-2025 Patient encounter procedure 07/15/2025 8:45 AM EDT Appointment Radiology Pet CT [address] [place] [address] [place] [address] Ct CAP with contrast port flush and lab draw Radiology Pet CT Comment on above: Ct CAP with contrast port flush and lab draw Start: 07-13-2025 End: 07-13-2025 Patient encounter procedure 07/13/2025 10:20 AM EDT Appointment [facility] [place] [address] [place] [address] MRI Rectum W/WO Dr Minerva Anderson [facility] Radiology MRI Comment on above: MRI Rectum W/WO Dr Minerva Anderson Start: 06-21-2025 Influenza vaccination [facility] Start: 05-25-2025 End: 05-25-2025 Patient encounter procedure 05/25/2025 9:30 AM EDT Appointment Procedures [address] [place] [address] [place] [address] [place] [address] Encounter for follow-up surveillance of rectal cancer [Z08, Z85.048] Procedures Comment on above: Encounter for follow-up surveillance of rectal cancer [Z08, Z85.048] Start: 05-18-2025 End: 05-18-2025 Patient encounter procedure 05/18/2025 9:15 AM EDT Office Visit [facility] [address] [place] [id number] Chelsie Fernando PA [address] [facility] [address] [place] [address] [facility] Start: 04-28-2025 End: 04-28-2025 Patient encounter procedure 04/28/2025 9:30 AM EDT Office Visit [facility] [address] [facility] [id number] Chelsie Fernando PA [address] [facility] [address] [place] [address] Right elbow pain (Primary Dx) [facility] Comment on above: Right elbow pain (Primary Dx) Start: 04-12-2025 End: 04-12-2025 Follow-up encounter Hematology/Oncology Comment on above: 3 month follow up with lab port draw and flush Start: 03-31-2025 End: 03-31-2025 Patient encounter procedure 03/31/2025 3:00 PM EDT Office Visit Colorectal Surgery [address] [facility] [address] [place] [address] [place] [address] [place] [address] rectal bleeding. Colorectal Surgery Comment on above: rectal bleeding. Start: 03-27-2025 Depression Screen Depression Screen [facility] Start: 03-11-2025 End: 03-11-2025 Patient encounter procedure 03/11/2025 10:45 AM EDT Office Visit [facility] Pulmonology [address] [place] [address] [address] [place] [address] Harpal Santos MD [address] [facility] [address] [place] [address] 3M F/U [facility] Pulmonology Comment on above: 3M F/U Start: 01-11-2025 End: 01-11-2025 Follow-up encounter 01/11/2025 9:40 AM EDT Visit (SP) Office Hematology/Oncology [address] [place] [address] [place] [address] Minerva Anderson MD [address] [place] [address] 4 week follow up for Ct And MRI results Hematology/Oncology Comment on above: [address] up for Ct And MRI results Start: 01-04-2025 End: 01-04-2025 Admission to same day surgery center 01/04/2025 12:55 PM EDT - 01/04/2025 1:55 PM EDT [facility] Operating Room [address] [place], [place] [id number] [place] [address] [place], [place] [id number] INCISION AND DRAINAGE ABSCESS ABDOMEN SIMPLE OR SINGLE [facility] Operating Room Comment on above: INCISION AND DRAINAGE ABSCESS ABDOMEN SI MPLE OR SINGLE Start: 01-04-2025 End: 01-04-2025 Incision & drainage abscess simple/single INCISION AND DRAINAGE ABSCESS ABDOMEN SIMPLE OR SINGLE Abdominal wall abscess 01/04/2025 12:55 PM EDT [facility] Start: 01-04-2025 End: 01-04-2025 Admission to same day surgery center 01/04/2025 11:50 AM EDT - 01/04/2025 12:50 PM EDT Surgery [facility] Operating Room [address] [place] [id number] [place] [address] [facility] [address] [place], [place] [id number] INCISION AND DRAINAGE ABSCESS ABDOMEN SIMPLE OR SINGLE [facility] Operating Room Comment on above: INCISION AND DRAINAGE ABSCESS ABDOMEN SI MPLE OR SINGLE Start: 01-04-2025 End: 01-04-2025 Incision & drainage abscess simple/single INCISION AND DRAINAGE ABSCESS ABDOMEN SIMPLE OR SINGLE Abdominal wall abscess 01/04/2025 11:50 AM EDT [facility] Start: 01-04-2025 Subsequent hospital visit by physician [facility] Operating Room Comment on above: Abdominal wall abscess [L02.211] Start: 01-04-2025 End: 01-04-2025 Follow-up encounter 01/04/2025 9:40 AM EDT Visit (SP) Office Hematology/Oncology [address] [place] [address] [place] [address] Minerva Anderson MD [address] [place] [address] [place] [address] [address] And MRI results Hematology/Oncology Comment on above: [address] And MRI results Start: 01-04-2025 End: 01-04-2025 Patient encounter procedure Radiology Comment on above: MRI Rectal w/wo contrast f/u with pcp // sxc Start: 12-29-2024 End: 12-29-2024 Patient encounter procedure 12/29/2024 9:00 AM EDT Appointment Radiology [address] [place] [address] MRI Rectal w/wo contrast Radiology Comment on above: MRI Rectal w/wo contrast Start: 12-28-2024 End: 12-28-2024 Patient encounter procedure 12/28/2024 7:00 AM EDT Office Visit Colorectal Surgery [address] [place] [address] Celeste Andrews, COMMUNICATIONS SCIENTIST.CHAINSTITCH ZIPPER SETTER [address], [facility] [address] [place] [address] Est Pt: Abdominal Abscess, Okay to Add on per Chelsie Colorectal Surgery Comment on above: Est Pt: Abdominal Abscess, Okay to Add o n per Chelsie Start: 12-24-2024 End: 03-25-2025 Carcinoembryonic Ag [Mass/volume] in Serum or Plasma [facility] Work Phone: Comment on above: Expected: 12/24/2024 (Approximate), Expi res: 03/25/2025 Start: 12-24-2024 End: 12-24-2024 Patient encounter procedure 12/24/2024 9:45 AM EST Appointment Radiology Pet CT [address] [place] [address] Ct CAP with contrast and lab ` Radiology Pet CT Comment on above: Ct CAP with contrast and lab ` Start: 12-07-2024 End: 12-07-2024 Follow-up encounter 12/07/2024 9:00 AM EST Visit (SP) Office Hematology/Oncology [address] [place] [address] Minerva Anderson MD [address] [facility] [place] [address] follow up after Sigmoidoscopy Hematology/Oncology Comment on above: follow up after Sigmoidoscopy Start: 12-07-2024 End: 12-07-2024 Patient encounter procedure 12/07/2024 8:45 AM EST Office Visit [facility] [address] [facility] [place] [address] follow up after Sigmoidoscopy [facility] Comment on above: follow up after Sigmoidoscopy Start: 11-25-2024 End: 11-25-2024 ambulatory 11/25/2024 10:30 AM EST Results Only [facility] [address] [facility] [place] [address] [facility] Start: 11-24-2024 End: 11-24-2024 Follow-up encounter 11/24/2024 9:20 AM EST Visit (SP) Office Hematology/Oncology [address] [facility] [place] [address] Minerva Anderson MD [address] [place] [place] [address] 3 month follow up with lab / Requested BRM if possible Hematology/Oncology Comment on above: 3 month follow up with lab / Requested B RM if possible Start: 11-24-2024 End: 11-24-2024 Patient encounter procedure [facility] Comment on above: 3 month follow up with lab Encounter for follow -up surveillance of rectal cancer [Z08, Z85.048] Start: 11-23-2024 End: 11-23-2024 ambulatory 11/23/2024 3:00 PM EST Visit (SP) Office Hematology/Oncology [address] [address] Minerva Anderson MD [address] [address] Scan Hematology/Oncology Comment on above: RV after CT Scan Start: 11-10-2024 End: 02-09-2025 Carcinoembryonic Ag [Mass/volume] in Serum or Plasma CARCINOEMBRYONIC ANTIGEN Lab Routine Intra-abdominal and pelvic swelling, mass and lump, unspecified site Malignant neoplasm of rectum (HCC) Expected: 11/10/2024, Expires: 02/09/2025 [facility] Comment on above: Expected: 11/10/2024, Expires: Start: 11-10-2024 End: 02-09-2025 CREATININE BLD CREATININE BLD Lab Routine Intra-abdominal and pelvic swelling, mass and lump, unspecified site Malignant neoplasm of rectum (HCC) Expected: 11/10/2024, Expires: 02/09/2025 [facility] Work Phone: Comment on above: Expected: 11/10/2024, Expires: Start: 11-10-2024 End: 11-10-2024 Follow-up encounter 11/10/2024 10:30 AM EST Visit (SP) Office Hematology/Oncology [address] [place] [address] [place] [address] Kari Diaz, PA-C [address] [address] 3 month follow up with lab / Requested BRM if possible Hematology/Oncology Comment on above: 3 month follow up with lab / Requested B RM if possible Start: 11-10-2024 End: 11-10-2024 Patient encounter procedure 11/10/2024 10:15 AM EST Office Visit [facility] [address] [place] [address] 3 month follow up with lab [facility] Comment on above: 3 month follow up with lab Start: 10-21-2024 Advance Directive Discussion Advance Directive Discussion [facility] Start: 09-16-2024 End: 09-16-2024 Patient encounter procedure 09/16/2024 2:00 PM EST Office Visit Colorectal Surgery [address] [place], [place] [id number] Dayanara Sullivan APRN.CHAINSTITCH ZIPPER SETTER [address] [place] [address] Drain removal Colorectal Surgery Comment on above: Drain removal Start: 09-15-2024 End: 09-15-2024 Patient encounter procedure 09/15/2024 8:40 AM EST Office Visit [facility] [address] [place] [address] Xiomara Greco PA [address] [place] [address] [facility] Start: 09-08-2024 End: 09-08-2024 Admission to same day surgery center 09/08/2024 1:00 PM EST - 09/08/2024 2:30 PM EST Surgery [facility] Radiology Procedure [id number] [place] [address] Mervat Solorzano MD [address] [place] [address] EXCHANGE OF PREVIOUSLY PLACED ABSCESS OR CYST DRAINAGE CATHETER UNDER RADIOLOGICAL GUIDANCE [facility] Radiology Procedure Comment on above: EXCHANGE OF PREVIOUSLY PLACED ABSCESS OR CYST DRAINAGE CATHETER UNDER RADIOLOGICAL GUIDANCE Start: 09-08-2024 End: 09-08-2024 Exchng absc/concierge receptionist drg cath rad gid spx EXCHANGE OF PREVIOUSLY PLACED ABSCESS OR CYST DRAINAGE CATHETER UNDER RADIOLOGICAL GUIDANCE Abscess 09/08/2024 1:00 PM EST [facility] Start: 09-08-2024 Subsequent hospital visit by physician 09/08/2024 1:00 PM EST Hospital Encounter [facility] Radiology Procedure [address] [place] [address] Mervat Solorzano MD [address] [place] [address] Abscess [L02.91] [facility] Radiology Procedure Comment on above: Abscess [L02.91] Start: 09-08-2024 End: 09-08-2024 Follow-up encounter 09/08/2024 9:20 AM EST Visit (SP) Office Hematology/Oncology [address] [place] [address] Minerva Anderson MD [address] [place] [address] 5 month follow up Hematology/Oncology Comment on above: 5 month follow up Start: 09-03-2024 End: 09-03-2024 Patient encounter procedure 09/03/2024 10:00 AM EST Appointment Radiology Pet CT [address] [place] [address] CT Abdomen/Pelvis with IVC Radiology Pet CT Comment on above: CT Abdomen/Pelvis with IVC Start: 09-01-2024 End: 09-01-2024 Follow-up encounter Hematology/Oncology Comment on above: 5 month follow up and lab 5 month follow up Start: 08-25-2024 End: 08-25-2024 Admission to same day surgery center 08/25/2024 3:10 PM EST - 08/25/2024 4:10 PM EST Surgery [facility] Radiology Procedure [address] [place] [address] Shawna Manrique DO [address] [place] [address] EXCHANGE OF PREVIOUSLY PLACED ABSCESS OR CYST DRAINAGE CATHETER UNDER RADIOLOGICAL GUIDANCE [facility] Radiology Procedure Comment on above: EXCHANGE OF PREVIOUSLY PLACED ABSCESS OR CYST DRAINAGE CATHETER UNDER RADIOLOGICAL GUIDANCE Start: 08-25-2024 End: 08-25-2024 Exchng absc/concierge receptionist drg cath rad gid spx EXCHANGE OF PREVIOUSLY PLACED ABSCESS OR CYST DRAINAGE CATHETER UNDER RADIOLOGICAL GUIDANCE Abscess 08/25/2024 3:10 PM EST AV IR Start: 08-25-2024 Subsequent hospital visit by physician 08/25/2024 3:10 PM EST Hospital Encounter [facility] Radiology Procedure [address] [place] [address] Shawna Manrique, DO [address] [place] [address] Abscess [L02.91] [facility] Radiology Procedure Comment on above: Abscess [L02.91] Start: 08-25-2024 End: 08-25-2024 Patient encounter procedure [facility] Radiology CT Scan Comment on above: CT ABD/PEL W CT ABD/PEL with--- o k'd with Kiko Start: 08-25-2024 End: 08-25-2024 ambulatory 08/25/2024 8:[address] [facility] Hematology/Oncology [address] [place] [address] [place] [address] labs Hematology/Oncology Comment on above: labs Start: 08-13-2024 End: 08-13-2024 ambulatory 08/13/2024 3:30 PM EDT Results Only [facility] [address] [place] [address] Arrived [facility] Comment on above: Arrived Start: 08-13-2024 Subsequent hospital visit by physician 08/13/2024 2:19 PM EDT Hospital Encounter CT Scan [address] [place] [address] Infection in abdomen (HCC) [K65.9] CT Scan Comment on above: Infection in abdomen (HCC) [K65.9] Start: 08-13-2024 End: 08-13-2024 Patient encounter procedure 08/13/2024 12:40 PM EDT Office Visit Colorectal Surgery [address] [place], [place] [id number] Celeste Andrews, AZAEL.CHAINSTITCH ZIPPER SETTER [address] [address], [address] [place] [address] Post op/2 weeks /Lap RHC/07/22 Colorectal Surgery Comment on above: Post op/2 weeks /Lap RHC/07/22 Start: 08-11-2024 End: 08-11-2024 Follow-up encounter 08/11/2024 9:30 AM EDT Visit (SP) Office Hematology/Oncology [address] [address] Minerva Anderson MD [address] [address] 5 month follow up after ct and lab Hematology/Oncology Comment on above: 5 month follow up after ct and lab Start: 08-04-2024 End: 11-03-2024 Carcinoembryonic Ag [Mass/volume] in Serum or Plasma CARCINOEMBRYONIC ANTIGEN Lab Routine Rectal cancer (HCC) Expected: 08/04/2024 (Approximate), Expires: 11/03/2024 [facility] Work Phone: Comment on above: Expected: 08/04/2024 (Approximate), Expi res: 11/03/2024 Start: 08-04-2024 End: 11-03-2024 CBC W Auto Differential panel - Blood COMPLETE BLOOD COUNT AND DIFFERENTIAL Lab Routine Rectal cancer (HCC) Expected: 08/04/2024 (Approximate), Expires: 11/03/2024 [facility] Comment on above: Expected: 08/04/2024 (Approximate), Expi res: 11/03/2024 Start: 08-04-2024 End: 11-03-2024 Comprehensive metabolic 2000 panel - Serum or Plasma COMPREHENSIVE METABOLIC PANEL Lab Routine Rectal cancer (HCC) Expected: 08/04/2024 (Approximate), Expires: 11/03/2024 [facility] Comment on above: Expected: 08/04/2024 (Approximate), Expi res: 11/03/2024 Start: 08-04-2024 End: 08-04-2024 ambulatory 08/04/2024 10:30 AM EDT Results Only [facility] [address] [place] [address] [place] [facility] Start: 08-04-2024 End: 08-04-2024 Patient encounter procedure 08/04/2024 8:15 AM EDT Appointment Radiology Pet CT [address] [place] [address] Ct CAP with contrast and lab port slsh and draw Radiology Pet CT Comment on above: Ct CAP with contrast and lab port slsh a nd draw Start: 07-21-2024 End: 07-21-2024 Patient encounter procedure 07/21/2024 9:30 AM EDT Appointment Procedures [address] [place] [address] [place] [address] [place] [address] Encounter for follow-up surveillance of rectal cancer [Z08, Z85.048] Procedures Comment on above: Encounter for follow-up surveillance of rectal cancer [Z08, Z85.048] Start: 07-14-2024 End: 07-14-2024 Patient encounter procedure [facility] Comment on above: Actinic keratosis Start: 06-21-2024 COVID-19 Vaccine ( season) COVID-19 Vaccine ( season) [facility] Start: 06-21-2024 COVID-19 Vaccine ( season) COVID-19 Vaccine ( season) [facility] Start: 06-21-2024 Covid-19 Vaccine ( season) Covid-19 Vaccine ( season) [facility] Start: 06-21-2024 Covid-19 Vaccine ( season) Covid-19 Vaccine ( season) [facility] Start: 06-21-2024 Influenza vaccination [facility] Start: 06-04-2024 End: 06-04-2024 Patient encounter procedure 06/04/2024 11:40 AM EDT Appointment [facility] [place] [address] [place] [address] MRI of Rectum with and without contrast [facility] Radiology MRI Comment on above: MRI of Rectum with and without contrast Start: 06-04-2024 End: 06-04-2024 ambulatory 06/04/2024 10:30 AM EDT [facility] Hematology/Oncology [address] [place] [address] port flush q 3 month Hematology/Oncology Comment on above: port flush q 3 month Start: 05-21-2024 Influenza vaccination Flu vaccine (#1) [facility] Start: 05-21-2024 End: 05-21-2024 ambulatory 05/21/2024 9:30 AM EDT Results Only [facility] [address] [place] [address] [facility] Start: 04-09-2024 Colonoscopy COLONOSCOPY [facility] Start: 04-09-2024 COLORECTAL CANCER SCREENING COLORECTAL CANCER SCREENING [facility] Start: 04-09-2024 Screening for malignant neoplasm of colon Colonoscopy [facility] Start: 03-12-2024 End: 03-12-2024 ambulatory Hematology/Oncology Comment on above: 16 week flollow up with lab port flush Start: 02-25-2024 End: 02-25-2024 Patient encounter procedure 02/25/2024 11:30 AM EDT Appointment Procedures [address] [place] [address] [place] [address] [place], [place] [id number] rectal cancer surveillance Procedures Comment on above: rectal cancer surveillance Start: 10-21-2023 Advance Directive Discussion Advance Directive Discussion [facility] Start: 10-21-2023 Behavioral Health Screening Behavioral Health Screening [facility] Start: 10-21-2023 Depression Assessment Depression Assessment [facility] Start: 09-16-2023 Annual Wellness Visit (Medicare) Annual Wellness Visit (Medicare) [facility] Start: 09-04-2023 Covid-19 Vaccine () Covid-19 Vaccine () [facility] Start: 08-24-2023 End: 10-24-2023 Carcinoembryonic Ag [Mass/volume] in Serum or Plasma CEA BLD Lab Routine Encounter for follow-up surveillance of rectal cancer Expected: 08/24/2023 (Approximate), Expires: 10/24/2023 [facility] Work Phone: Comment on above: Expected: 08/24/2023 (Approximate), Expi res: 10/24/2023 Start: 08-03-2023 End: 10-03-2023 Carcinoembryonic Ag [Mass/volume] in Serum or Plasma CEA BLD Lab Routine Encounter for follow-up surveillance of rectal cancer Expected: 08/03/2023, Expires: 10/03/2023 [facility] Work Phone: Comment on above: Expected: 08/03/2023, Expires: Start: 06-21-2023 Covid-19 Vaccine () Covid-19 Vaccine () [facility] Start: 06-21-2023 Influenza vaccination [facility] Start: 06-20-2023 End: 08-20-2023 Carcinoembryonic Ag [Mass/volume] in Serum or Plasma [facility] Work Phone: Comment on above: Expected: 06/20/2023, Expires: Start: 06-20-2023 End: 08-20-2023 CBC W Auto Differential panel - Blood CBC + DIFF Lab Routine Rectal cancer (HCC) Expected: 06/20/2023, Expires: 08/20/2023 [facility] Work Phone: Comment on above: Expected: 06/20/2023, Expires: 3 Start: 06-20-2023 End: 08-20-2023 Comprehensive metabolic 2000 panel - Serum or Plasma COMP METABOLIC PANEL Lab Routine Rectal cancer (HCC) Expected: 06/20/2023, Expires: 08/20/2023 [facility] Work Phone: Comment on above: Expected: 06/20/2023, Expires: Start: 06-20-2023 End: 08-20-2023 Magnesium [Mass/volume] in Serum or Plasma MAGNESIUM BLD Lab Routine Rectal cancer (HCC) Expected: 06/20/2023, Expires: 08/20/2023 [facility] Work Phone: Comment on above: Expected: 06/20/2023, Expires: 3 Start: 05-22-2023 MR Cervical spine WO and W contrast IV [facility] Start: 05-22-2023 MRI of cervical spine with contrast MR cervical spine wo/w con [facility] Start: 03-05-2023 End: 05-05-2023 Carcinoembryonic Ag [Mass/volume] in Serum or Plasma CEA BLD Lab Routine Rectal cancer (HCC) Expected: 03/05/2023, Expires: 05/05/2023 [facility] Work Phone: Comment on above: Expected: 03/05/2023, Expires: 3 Start: 03-05-2023 End: 05-05-2023 CBC W Auto Differential panel - Blood CBC + DIFF Lab Routine Rectal cancer (HCC) Expected: 03/05/2023, Expires: 05/05/2023 [facility] Work Phone: Comment on above: Expected: 03/05/2023, Expires: 3 Start: 03-05-2023 End: 05-05-2023 Comprehensive metabolic 2000 panel - Serum or Plasma COMP METABOLIC PANEL Lab Routine Rectal cancer (HCC) Expected: 03/05/2023, Expires: 05/05/2023 [facility] Work Phone: Comment on above: Expected: 03/05/2023, Expires: 3 Start: 02-07-2023 End: 04-09-2023 CBC W Auto Differential panel - Blood CBC + DIFF Lab Routine Leg swelling Rectal cancer (HCC) Left ankle swelling Expected: 02/07/2023, Expires: 04/09/2023 [facility] Work Phone: Comment on above: Expected: 02/07/2023, Expires: 3 Start: 02-07-2023 End: 04-09-2023 Comprehensive metabolic 2000 panel - Serum or Plasma COMP METABOLIC PANEL Lab Routine Leg swelling Rectal cancer (HCC) Left ankle swelling Expected: 02/07/2023, Expires: 04/09/2023 [facility] Work Phone: Comment on above: Expected: 02/07/2023, Expires: Start: 01-18-2023 End: 03-20-2023 Carcinoembryonic Ag [Mass/volume] in Serum or Plasma CEA BLD Lab Routine Rectal cancer (HCC) Expected: 01/18/2023, Expires: 03/20/2023 [facility] Work Phone: Comment on above: Expected: 01/18/2023, Expires: Start: 01-18-2023 End: 03-20-2023 CBC W Auto Differential panel - Blood CBC + DIFF Lab Routine Rectal cancer (HCC) Expected: 01/18/2023, Expires: 03/20/2023 [facility] Work Phone: Comment on above: Expected: 01/18/2023, Expires: Start: 01-18-2023 End: 03-20-2023 Comprehensive metabolic 2000 panel - Serum or Plasma COMP METABOLIC PANEL Lab Routine Rectal cancer (HCC) Expected: 01/18/2023, Expires: 03/20/2023 [facility] Work Phone: Comment on above: Expected: 01/18/2023, Expires: Start: 12-25-2022 End: 02-24-2023 CBC W Auto Differential panel - Blood CBC + DIFF Lab Routine Rectal cancer (HCC) Expected: 12/25/2022, Expires: 02/24/2023 [facility] Work Phone: Comment on above: Expected: 12/25/2022, Expires: Start: 12-25-2022 End: 02-24-2023 Comprehensive metabolic 2000 panel - Serum or Plasma COMP METABOLIC PANEL Lab Routine Rectal cancer (HCC) Expected: 12/25/2022, Expires: 02/24/2023 [facility] Work Phone: Comment on above: Expected: 12/25/2022, Expires: Start: 11-21-2022 End: 01-21-2023 Carcinoembryonic Ag [Mass/volume] in Serum or Plasma CEA BLD Lab Routine Rectal cancer (HCC) Abnormal PET scan of lung Pulmonary embolus with infarction (HCC) Rheumatoid arthritis involving multiple sites, unspecified whether rheumatoid factor present (HCC) Expected: 11/21/2022, Expires: 01/21/2023 [facility] Work Phone: Comment on above: Expected: 11/21/2022, Expires: Start: 11-21-2022 End: 01-21-2023 CBC W Auto Differential panel - Blood CBC + DIFF Lab Routine Rectal cancer (HCC) Abnormal PET scan of lung Pulmonary embolus with infarction (HCC) Rheumatoid arthritis involving multiple sites, unspecified whether rheumatoid factor present (HCC) Expected: 11/21/2022, Expires: 01/21/2023 [facility] Work Phone: Comment on above: Expected: 11/21/2022, Expires: Start: 11-21-2022 End: 01-21-2023 Comprehensive metabolic 2000 panel - Serum or Plasma COMP METABOLIC PANEL Lab Routine Rectal cancer (HCC) Abnormal PET scan of lung Pulmonary embolus with infarction (HCC) Rheumatoid arthritis involving multiple sites, unspecified whether rheumatoid factor present (HCC) Expected: 11/21/2022, Expires: 01/21/2023 [facility] Work Phone: Comment on above: Expected: 11/21/2022, Expires: Start: 11-01-2022 End: 01-01-2023 Carcinoembryonic Ag [Mass/volume] in Serum or Plasma CEA BLD Lab Routine Pulmonary embolus with infarction (HCC) Rectal cancer (HCC) Expected: 11/01/2022, Expires: 01/01/2023 [facility] Work Phone: Comment on above: Expected: 11/01/2022, Expires: 3 Start: 11-01-2022 End: 01-01-2023 CBC W Auto Differential panel - Blood CBC + DIFF Lab Routine Pulmonary embolus with infarction (HCC) Rectal cancer (HCC) Expected: 11/01/2022, Expires: 01/01/2023 [facility] Work Phone: Comment on above: Expected: 11/01/2022, Expires: 3 Start: 11-01-2022 End: 01-01-2023 Comprehensive metabolic 2000 panel - Serum or Plasma COMP METABOLIC PANEL Lab Routine Pulmonary embolus with infarction (HCC) Rectal cancer (HCC) Expected: 11/01/2022, Expires: 01/01/2023 [facility] Work Phone: Comment on above: Expected: 11/01/2022, Expires: 3 Start: 10-21-2022 ADVANCE DIRECTIVE DISCUSSION ADVANCE DIRECTIVE DISCUSSION [facility] Start: 10-21-2022 DEPRESSION ASSESSMENT DEPRESSION ASSESSMENT [facility] Start: 10-01-2022 MR Abdomen WO and W contrast IV [facility] Start: 10-01-2022 MRI of abdomen with contrast MR abdomen wo/w con [facility] Start: 09-17-2022 End: 11-17-2022 Carcinoembryonic Ag [Mass/volume] in Serum or Plasma [facility] Work Phone: Comment on above: Expected: 09/17/2022, Expires: 3 Start: 09-17-2022 End: 11-17-2022 CBC W Auto Differential panel - Blood CBC + DIFF Lab Routine Rectal cancer (HCC) Expected: 09/17/2022, Expires: 11/17/2022 [facility] Work Phone: Comment on above: Expected: 09/17/2022, Expires: 3 Start: 09-17-2022 End: 11-17-2022 Comprehensive metabolic 2000 panel - Serum or Plasma COMP METABOLIC PANEL Lab Routine Rectal cancer (HCC) Expected: 09/17/2022, Expires: 11/17/2022 [facility] Work Phone: Comment on above: Expected: 09/17/2022, Expires: 3 Start: 06-21-2022 Influenza vaccination INFLUENZA (#1) [facility] Start: 11-15-2021 COVID-19 VACCINE (4 - Booster) COVID-19 VACCINE (4 - Booster) [facility] Start: 11-15-2021 COVID-19 VACCINE (6 - Booster) COVID-19 VACCINE (6 - Booster) [facility] Start: 11-15-2021 COVID-19 VACCINE (6 - Mixed Product risk series) COVID-19 VACCINE (6 - Mixed Product risk series) [facility] Start: 10-21-2021 ADVANCE DIRECTIVE DISCUSSION ADVANCE DIRECTIVE DISCUSSION [facility] Start: 10-21-2021 DEPRESSION ASSESSMENT DEPRESSION ASSESSMENT [facility] Start: 08-04-2021 DIABETES SCREEN DIABETES SCREEN [facility] Start: 02-17-2021 COVID-19 VACCINE (3 - Booster for Pfizer series) COVID-19 VACCINE (3 - Booster for Pfizer series) [facility] Start: 11-19-2020 Shingles vaccine (2 of 2) Shingles vaccine (2 of 2) [facility] Start: 11-19-2020 SHINGRIX VACCINE (2 of 2) SHINGRIX VACCINE (2 of 2) [facility] Start: 2017 PNEUMOCOCCAL: 65+ (1 - PCV) PNEUMOCOCCAL: 65+ (1 - PCV) [facility] Start: 09-20-2017 Medicare Annual Wellness Visit Medicare Annual Wellness Visit [facility] Start: 2012 Respiratory Syncytial Virus (RSV) or age 60 yrs+ (1 - Risk 60-74 years 1-dose series) Respiratory Syncytial Virus (RSV) or age 60 yrs+ (1 - Risk 60-74 years 1-dose series) [facility] Start: 2012 RSV Vaccine (1 - 1-dose 60+ series) RSV Vaccine (1 - 1-dose 60+ series) [facility] Start: 2012 RSV Vaccine (1 - Risk 60-74 years 1-dose series) RSV Vaccine (1 - Risk 60-74 years 1-dose series) [facility] Start: 2002 SHINGRIX VACCINE (1 of 2) SHINGRIX VACCINE (1 of 2) [facility] Start: 1997 COLOGUARD (FIT-DNA) COLOGUARD (FIT-DNA) [facility] Start: 1997 Colonoscopy COLONOSCOPY [facility] Start: 1997 COLORECTAL CANCER SCREENING COLORECTAL CANCER SCREENING [facility] Start: [address] COLONOGRAPHY [facility] Start: 1997 FECAL OCCULT BLOOD FECAL OCCULT BLOOD [facility] Start: 1997 Screening for malignant neoplasm of colon [facility] Start: 1997 SIGMOIDOSCOPY SIGMOIDOSCOPY [facility] Start: 04-28-1997 Hepatitis B vaccine (2 of 3 - 19+ 3-dose series) Hepatitis B vaccine (2 of 3 - 19+ 3-dose series) [facility] Start: 1992 Lipid panel Lipids [facility] Start: 1987 Lipid 1996 panel - Serum or Plasma Lipid Screening [facility] Start: 1987 Lipid panel Lipid Screening [facility] Start: 1987 LIPID SCREEN LIPID SCREEN [facility] Start: 1971 DTaP/Tdap/Td vaccine (1 - Tdap) DTaP/Tdap/Td vaccine (1 - Tdap) [facility] Start: 1971 Urine microalbumin profile [facility] Start: 1970 Anxiety Screening Anxiety Screening [facility] Start: 1970 Depression Screening Depression Screening [facility] Start: 1970 HEPATITIS C SCREENING HEPATITIS C SCREENING [facility] Start: 1970 Hepatitis C screening [facility] Start: 1952 Screening for malignant neoplasm of colon [facility] Carcinoembryonic Ag [Mass/volume] in Serum or Plasma CEA BLD Lab Routine Rectal cancer (HCC) Primary hypercoagulable state (HCC) Rheumatoid arthritis involving multiple sites, unspecified whether rheumatoid factor present (HCC) 03/19/2023 8:23 AM [facility] Work Phone: Carcinoembryonic Ag [Mass/volume] in Serum or Plasma CEA BLD Lab Routine Rectal cancer (HCC) 04/16/2023 8:53 AM [facility] Work Phone: Carcinoembryonic Ag [Mass/volume] in Serum or Plasma CEA BLD Lab Routine Rectal cancer (HCC) 05/28/2023 9:15 AM [facility] Work Phone: End: 10-09-2024 Carcinoembryonic Ag [Mass/volume] in Serum or Plasma CEA BLD Lab Routine Encounter for follow-up surveillance of rectal cancer Every 3 months for 4 Occurrences starting 10/10/2023 until 10/09/2024 [facility] Work Phone: Comment on above: Every 3 months for 4 Occurrences startin g 10/10/2023 until 10/09/2024 Carcinoembryonic Ag [Mass/volume] in Serum or Plasma CEA BLD Lab Routine Encounter for follow-up surveillance of rectal cancer 01/06/2024 8:53 AM [facility] Work Phone: Carcinoembryonic Ag [Mass/volume] in Serum or Plasma CEA BLD Lab Routine Encounter for follow-up surveillance of rectal cancer 02/11/2024 8:14 AM [facility] Work Phone: Carcinoembryonic Ag [Mass/volume] in Serum or Plasma CEA BLD Lab Routine Encounter for follow-up surveillance of rectal cancer 05/21/2024 10:00 AM [facility] Work Phone: Carcinoembryonic Ag [Mass/volume] in Serum or Plasma CARCINOEMBRYONIC ANTIGEN Lab Routine Malignant neoplasm of rectum (HCC) 04/12/2025 10:22 AM [facility] Work Phone: End: 12-18-2022 CBC W Auto Differential panel - Blood CBC + DIFF Lab Routine Rectal cancer (HCC) Once per week for 6 Occurrences starting 11/07/2022 until 12/18/2022 [facility] Work Phone: Comment on above: Once per week for 6 Occurrences starting 11/07/2022 until 12/18/2022 Clostridioides diffi cile toxin genes [Presence] in Stool by MIGUE with probe detection C. DIFFICILE PCR Lab Routine Diarrhea of presumed infectious origin Ordered: 08/13/2024 [facility] Work Phone: Comment on above: Ordered: 08/13/2024 End: 02-08-2024 COLONOSCOPY DIAGNOSTIC COLONOSCOPY DIAGNOSTIC Endoscopy Routine Rectal cancer (HCC) 1 Occurrences starting 02/07/2023 until 02/08/2024 [facility] Work Phone: Comment on above: 1 Occurrences starting 02/07/2023 until 02/08/2024 End: 12-19-2023 Ct abdomen & pelvis w/contrast material CT ABD/PEL W IVCON Radiology Routine Lung nodules Rectal cancer (HCC) 1 Occurrences starting 11/19/2022 until 12/19/2023 [facility] Work Phone: Comment on above: 1 Occurrences starting 11/19/2022 until 12/19/2023 End: 04-11-2025 CT Abdomen and Pelvis W contrast IV CT ABD/PEL W IVCON Radiology Routine Malignant neoplasm of rectum (HCC) 1 Occurrences starting 03/12/2024 until 04/11/2025 [facility] Comment on above: 1 Occurrences starting 03/12/2024 until 04/11/2025 CT Abdomen and Pelvi s W contrast IV CT ABD/PEL W IVCON Radiology Routine Malignant neoplasm of rectum (HCC) 08/25/2024 10:38 AM EST [facility] Work Phone: End: 01-06-2026 CT Abdomen and Pelvis W contrast IV CT ABD/PEL W IVCON Radiology Routine Malignant neoplasm of rectum (HCC) 1 Occurrences starting 12/07/2024 until 01/06/2026 [facility] Comment on above: 1 Occurrences starting 12/07/2024 until 01/06/2026 End: 05-12-2026 CT Abdomen and Pelvis W contrast IV CT ABD/PEL W IVCON Radiology Routine Malignant neoplasm of rectum (HCC) 1 Occurrences starting 04/12/2025 until 05/12/2026 [facility] Comment on above: 1 Occurrences starting 04/12/2025 until 05/12/2026 End: 07-18-2026 CT Abdomen and Pelvis W contrast IV CT ABD/PEL W IVCON Radiology Routine Malignant neoplasm of rectum (HCC) 1 Occurrences starting 06/18/2025 until 07/18/2026 [facility] Comment on above: 1 Occurrences starting 06/18/2025 until 07/18/2026 End: 06-01-2024 Ct abdomen w/contrast material CT ABDOMEN W IVCON Radiology Routine Malignant neoplasm of rectum (HCC) 1 Occurrences starting 05/03/2023 until 06/01/2024 [facility] Work Phone: Comment on above: 1 Occurrences starting 05/03/2023 until 06/01/2024 End: 07-24-2024 Ct abdomen w/contrast material CT ABDOMEN W IVCON Radiology Routine Malignant neoplasm of rectum (HCC) 1 Occurrences starting 06/25/2023 until 07/24/2024 [facility] Work Phone: Comment on above: 1 Occurrences starting 06/25/2023 until 07/24/2024 End: 04-11-2025 CT Chest W contrast IV CT CHEST W IVCON Radiology Routine Malignant neoplasm of rectum (HCC) 1 Occurrences starting 03/12/2024 until 04/11/2025 [facility] Comment on above: 1 Occurrences starting 03/12/2024 until 04/11/2025 End: 01-06-2026 CT Chest W contrast IV CT CHEST W IVCON Radiology Routine Malignant neoplasm of rectum (HCC) 1 Occurrences starting 12/07/2024 until 01/06/2026 [facility] Comment on above: 1 Occurrences starting 12/07/2024 until 01/06/2026 End: 05-12-2026 CT Chest W contrast IV CT CHEST W IVCON Radiology Routine Malignant neoplasm of rectum (HCC) 1 Occurrences starting 04/12/2025 until 05/12/2026 [facility] Comment on above: 1 Occurrences starting 04/12/2025 until 05/12/2026 End: 07-18-2026 CT Chest W contrast IV CT CHEST W IVCON Radiology Routine Malignant neoplasm of rectum (HCC) 1 Occurrences starting 06/18/2025 until 07/18/2026 [facility] Work Phone: Comment on above: 1 Occurrences starting 06/18/2025 until 07/18/2026 End: 12-19-2023 CT CHEST W IVCON CT CHEST W IVCON Radiology Routine Lung nodules 1 Occurrences starting 11/19/2022 until 12/19/2023 [facility] Work Phone: Comment on above: 1 Occurrences starting 11/19/2022 until 12/19/2023 End: 06-01-2024 CT CHEST W IVCON CT CHEST W IVCON Radiology Routine Malignant neoplasm of rectum (HCC) 1 Occurrences starting 05/03/2023 until 06/01/2024 [facility] Work Phone: Comment on above: 1 Occurrences starting 05/03/2023 until 06/01/2024 End: 07-24-2024 CT CHEST W IVCON CT CHEST W IVCON Radiology Routine Malignant neoplasm of rectum (HCC) 1 Occurrences starting 06/25/2023 until 07/24/2024 [facility] Work Phone: Comment on above: 1 Occurrences starting 06/25/2023 until 07/24/2024 CT Guidance for radi ation treatment of Unspecified body region CT SIM PLANNING RADIATION ONCOLOGY Radiology Routine Rectal adenocarcinoma (HCC) Ordered: 09/24/2022 [facility] Work Phone: Comment on above: Ordered: 09/24/2022 CT SIM PLANNING RADI ATION ONCOLOGY CT SIM PLANNING RADIATION ONCOLOGY Radiology Routine Rectal adenocarcinoma (HCC) Ordered: 09/24/2022 [facility] Work Phone: Comment on above: Ordered: 09/24/2022 Dermatopathology exam Dermatopat hology exam Pathology and Cytology Timed Neoplasm of unspecified behavior of bone, soft tissue, and skin Release Upon Ordering for 1 Occurrences starting 07/14/2024 [facility] Work Phone: Comment on above: Release Upon Ordering for 1 Occurrences starting 07/14/2024 End: 2023 ECG COMPLETE ECG COMPLETE ECG Routine Adenopathy 1 Occurrences starting 2022 until 2023 [facility] Work Phone: Comment on above: 1 Occurrences starting 2022 until 2023 End: 07-21-2025 Flexible sigmoidoscopy study SIGMOIDOSCOPY Endoscopy Routine Encounter for follow-up surveillance of rectal cancer 1 Occurrences starting 07/21/2024 until 07/21/2025 [facility] Work Phone: Comment on above: 1 Occurrences starting 07/21/2024 until 07/21/2025 End: 03-08-2026 Flexible sigmoidoscopy study SIGMOIDOSCOPY Endoscopy Routine Encounter for follow-up surveillance of rectal cancer 1 Occurrences starting 03/08/2025 until 03/08/2026 [facility] Work Phone: Comment on above: 1 Occurrences starting 03/08/2025 until 03/08/2026 Guidance for drainag e and placement of drainage catheter IMAGING GUIDED INJECTION DRAINAGE TUBE Radiology Routine Encounter for change or removal of drains Ordered: 09/02/2024 [facility] Work Phone: Comment on above: Ordered: 09/02/2024 Guidance for exchang e of drainage catheter for abscess IMAGING GUIDED CHANGE ABSCESS DRAIN Radiology Routine Abscess Ordered: 08/24/2024 [facility] Work Phone: Comment on above: Ordered: 08/24/2024 Guidance for exchang e of drainage catheter for abscess IMAGING GUIDED CHANGE ABSCESS DRAIN Radiology Routine Abscess Ordered: 09/04/2024 [facility] Work Phone: Comment on above: Ordered: 09/04/2024 End: 09-21-2024 Home Sleep Study [facility] Routine Sleep apnea, unspecified type 1 Occurrences starting 09/21/2024 until 09/21/2024 [facility] Comment on above: 1 Occurrences starting 09/21/2024 until 09/21/2024 Incision & drainage abscess simple/single INCISION AND DRAINAGE ABSCESS ABDOMEN SIMPLE OR SINGLE Abdominal wall abscess FV OR IR PORTOCATH PLACEMENT IR PORTOC ATH PLACEMENT Radiology Routine Rectal cancer (HCC) Ordered: 12/17/2022 [facility] Work Phone: Comment on above: Ordered: 12/17/2022 End: 04-11-2025 MR Pelvis WO contrast MRI RECTUM WO/W IVCON Radiology Routine Malignant neoplasm of rectum (HCC) 1 Occurrences starting 03/12/2024 until 04/11/2025 [facility] Work Phone: Comment on above: 1 Occurrences starting 03/12/2024 until 04/11/2025 MR Pelvis WO contrast MRI RECTUM WO/W IVCON Radiology Routine Malignant neoplasm of rectum (HCC) 06/04/2024 1:50 PM EDT [facility] Work Phone: End: 01-06-2026 MR Pelvis WO contrast MRI RECTUM WO/W IVCON Radiology Routine Malignant neoplasm of rectum (HCC) 1 Occurrences starting 12/07/2024 until 01/06/2026 [facility] Work Phone: Comment on above: 1 Occurrences starting 12/07/2024 until 01/06/2026 End: 05-12-2026 MR Pelvis WO contrast MRI RECTUM WO/W IVCON Radiology Routine Malignant neoplasm of rectum (HCC) 1 Occurrences starting 04/12/2025 until 05/12/2026 [facility] Work Phone: Comment on above: 1 Occurrences starting 04/12/2025 until 05/12/2026 End: 10-17-2023 Mri abdomen w/o & w/contrast material MRI ABDOMEN WO/W IVCON Radiology Routine Rectal cancer (HCC) 1 Occurrences starting 09/17/2022 until 10/17/2023 [facility] Work Phone: Comment on above: 1 Occurrences starting 09/17/2022 until 10/17/2023 End: 03-08-2024 Mri pelvis w/o & w/contrast material MRI RECTUM WO/W IVCON Radiology Routine Malignant neoplasm of rectum (HCC) 1 Occurrences starting 02/07/2023 until 03/08/2024 [facility] Work Phone: Comment on above: 1 Occurrences starting 02/07/2023 until 03/08/2024 End: 06-01-2024 Mri pelvis w/o & w/contrast material MRI RECTUM WO/W IVCON Radiology Routine Malignant neoplasm of rectum (HCC) 1 Occurrences starting 05/03/2023 until 06/01/2024 [facility] Work Phone: Comment on above: 1 Occurrences starting 05/03/2023 until 06/01/2024 End: 10-17-[address] attenuation skull base mid-thigh NM PET/CT SKULL-THIGH INITIAL Radiology Routine Rectal cancer (HCC) 1 Occurrences starting 09/17/2022 until 10/17/2023 [facility] Work Phone: Comment on above: 1 Occurrences starting 09/17/2022 until 10/17/2023 SARS-CoV-2 (COVID-19 ) RNA [Presence] in Respiratory specimen by MIGUE with probe detection SELF CHECK COVID Microbiology Routine Adenopathy Ordered: 2022 [facility] Work Phone: Comment on above: Ordered: 2022 End: 05-19-2025 Screening colonoscopy COLONOSCOPY SCREENING Endoscopy Routine Encounter for follow-up surveillance of rectal cancer 1 Occurrences starting 05/19/2024 until 05/19/2025 [facility] Work Phone: Comment on above: 1 Occurrences starting 05/19/2024 until 05/19/2025 End: 05-03-2024 SIGMOIDOSCOPY SIGMOIDOSCOPY Endoscopy Routine Encounter for follow-up surveillance of rectal cancer 1 Occurrences starting 05/03/2023 until 05/03/2024 [facility] Work Phone: Comment on above: 1 Occurrences starting 05/03/2023 until 05/03/2024 End: 07-24-2024 SIGMOIDOSCOPY SIGMOIDOSCOPY Endoscopy Routine Encounter for follow-up surveillance of rectal cancer 1 Occurrences starting 07/24/2023 until 07/24/2024 [facility] Work Phone: Comment on above: 1 Occurrences starting 07/24/2023 until 07/24/2024 End: 02-21-2024 US DVT LOWER LEFT US DVT LOWER LEFT Radiology Routine Leg swelling 1 Occurrences starting 01/22/2023 until 02/21/2024 [facility] Work Phone: Comment on above: 1 Occurrences starting 01/22/2023 until 02/21/2024 XR Foot - right 3 Views XR foot 3+ views right Imaging Routine Right foot pain 07/08/2024 9:17 AM EDT [facility] Immunizations Immunization Date Immunization Notes Care Provider [facility] 07-10-2023 COVID-19, PFIZER PURPLE top, DILUTE for use, (age 12 y+), 30mcg/0.3mL Mloz Studies [facility] 09-20-2021 COVID-19 original vaccine, age 12+ yr, monovalent (PFIZER-BIONTECH - PURPLE TOP) Minerva Anderson MD Work Phone: [facility] 09-20-2021 COVID-19 vaccine (UNSPECIFIED) Minerva Anderson MD Work Phone: [facility] 07-25-2021 influenza, high dose seasonal, preservative-free Minerva Anderson MD Work Phone: [facility] 07-25-2021 influenza virus vaccine, unspecified formulation Deborah Norman MD Work Phone: [facility] 12-23-2020 COVID-19 vaccine (UNSPECIFIED) Minerva Anderson MD Work Phone: [facility] 12-23-2020 SARS-CoV-2 (COVID-19) mRNA BNT-162b2 susux Lorenzo MARIN [facility] 12-02-2020 COVID-19 vaccine (UNSPECIFIED) Minerva Anderson MD Work Phone: [facility] 12-02-2020 SARS-CoV-2 (COVID-19) mRNA BNT-162b2 susux Lorenzo MARIN [facility] Comment on above: [facility]2020 SARS-CoV-2 (COVID-19) mRNA BNT-162b2 vax Lorenzo MARIN [facility] Comment on above: Result Comment: Pt i s fully vaccinated but does not know the dates 09-24-2020 zoster vaccine recombinant Lorenzo MARIN [facility] 07-21-2020 influenza virus vaccine, unspecified formulation Corey SINGLETON [facility] 07-21-2020 influenza, high-dose, quadrivalent vaccine (FLUZONE HIGH DOSE QUADRIVALENT) Minerva Anderson MD Work Phone: [facility] 09-15-2019 pneumococcal polysaccharide vaccine, 23 valent Lorenzo MARIN [facility] 07-27-2019 influenza nasal, unspecified formulation Minerva Anderson MD Work Phone: [facility] 07-27-2019 influenza virus vaccine, unspecified formulation Lorenzo MARIN [facility] 07-14-2018 pneumococcal conjugate vaccine, 13 valent Lorenzo MARIN [facility] 10-25-2009 novel [id number], preservative-free, injectable Minerva Anderson MD Work Phone: [facility] 03-31-1997 hepatitis B vaccine, adult dosage Minerva Anderson MD Work Phone: [facility] NEGATED: Highlighted row has not occurred! 4 influenza virus vaccine, unspecified formulation Pato Peña [facility] NEGATED: Highlighted row has not occurred! 8 pneumococcal polysaccharide vaccine, 23 valent Patient Objection Valencia Webster Other [employer] Other Payers Date Payer Category Payer Self-pay 2022 Medicare [id number] 2022 Private Health Insurance [id number] 2022 Unknown [id number] 2022 Unknown [id number] 2.16.8 [id number] 2019 Unknown [id number] 2017 Medicare [id number] 1959 Medicare [id number] 1959 Unknown [id number] 1952 Unknown [id number] 2.16.84 0.1.814712.3.579.2.593 1952 Unknown [id number] 2.16.84 0.1.797406.3.579.2.593 1952 Unknown [id number] 2.16.84 0.1.990752.3.579.2.593 1952 Unknown [id number] 2.16.84 0.1.690236.3.579.2.593 1952 Unknown [id number] 2.16. 840.1.381493.3.579.2.196 1952 Unknown [id number] 2.16.8 40.1.931661.3.579.2.727 1952 Unknown [id number] 2.16.8 40.1.305147.3.579.2.727 1952 Unknown [id number] 2.16.8 40.1.492805.3.579.2.727 1952 Unknown [id number] 2.16.8 40.1.079624.3.579.2.727 1952 Unknown [id number] 2.16.8 40.1.849560.3.579.2.727 1952 Unknown [id number] 2.16.8 40.1.454692.3.579.2.727 1952 Unknown [id number] 2.16. 840.1.251654.3.579.2.182 1952 Unknown [id number] 2.16. 840.1.480283.3.579.2.182 1952 Unknown [id number] 2.16. 840.1.620685.3.579.2.182 1952 Unknown [id number] 2.16.8 40.1.180864.3.579.2.182 1952 Unknown [id number] 2.16.8 40.1.724892.3.579.2.727 1952 Unknown [id number] 2.16.8 40.1.703093.3.579.2.727 1952 Unknown [id number] 2.16.8 40.1.695703.3.579.2.727 1952 Unknown [id number] 2.16.8 40.1.719240.3.579.2.727 1952 Unknown [id number] 2.16.8 40.1.735631.3.579.2.727 1952 Unknown [id number] 2.16.8 40.1.564140.3.579.2.727 1952 Unknown [id number] 2.16. 840.1.471729.3.579.2.1282 1952 Unknown [id number] 2.16.8 40.1.103494.3.579.2.1259 1952 Unknown [id number] 2.16.8 40.1.894658.3.579.2.1259 1952 Unknown [id number] 2.16.84 0.1.202995.3.579.2.1259 1952 Unknown [id number] 2.16.84 0.1.930095.3.579.2.1259 1952 Unknown [id number] 2.16.84 0.1.920459.3.579.2.1259 1952 Unknown [id number] 2.16.84 0.1.873965.3.579.2.1259 1952 Unknown [id number] 2.16.84 0.1.280084.3.579.2.1259 1952 Unknown [id number] 2.16.84 0.1.359842.3.579.2.1259 1952 Unknown [id number] 2.16.84 0.1.775727.3.579.2.1259 1952 Unknown [id number] 2.16.84 0.1.697477.3.579.2.1259 1952 Unknown [id number] 2.16.84 0.1.952051.3.579.2.1259 1952 Unknown [id number] 2.16.84 0.1.222148.3.579.2.1259 1952 Unknown [id number] 2.16.8 40.1.796382.3.579.2.727 1952 Unknown [id number] 2.16.8 40.1.937446.3.579.2.727 1952 Unknown [id number] 2.16.8 40.1.824128.3.579.2.727 1952 Unknown [id number] 2.16.8 40.1.605514.3.579.2.727 1952 Unknown [id number] 2.16.8 40.1.333412.3.579.2.727 Unknown [facility] [id number] Unknown [id number] 2.16.8 40.1.103349.3.579.2.531 Unknown [id number] 2.16.8 40.1.387478.3.579.2.531 Unknown [id number] 2.16.8 40.1.230471.3.579.2.531 Unknown [id number] 2.16.8 40.1.548882.3.579.2.531 Social History Date Type Detail Facility Start: 07-11-2021 End: 02-15-2025 Tobacco smoking status Never smoked tobacco (finding) [facility] Start: 04-16-2013 Tobacco smoking status Never [facility] Start: 02-21-2023 End: 04-16-2023 Sex Assigned At Male [facility] Start: 08-04-2018 End: 12-25-2022 Tobacco use and exposure Smokeless tobacco non-user [facility] Start: 08-04-2018 End: 04-01-2025 Alcohol intake Current drinker of alcohol (finding) [facility] Start: 08-04-2018 Alcohol Comment rarely [facility] Start: 1950 Sex Assigned At Not on file [facility] Start: 09-07-2022 End: 09-24-2022 Exposure to SARS-CoV-2 (event) Not sure [facility] Start: 1950 Sex Assigned At Male F [facility] Start: 02-21-2023 End: 04-16-2023 History of Social function [facility] Has the [employer], gas, oil, or water [employer] threatened to shut off services in your home in past 12Mo No [facility] (I/We) worried whether (my/our) food would run out before (I/we) got money to buy more. Never true [facility] Start: 07-10-2023 Alcohol Comment occasional [facility] Start: 10-11-2023 Alcohol Comment 2-4 times a mo nth. caffeine intake: 3 cups per day. [facility] Start: 12-14-2024 Gender identity Identifies as male gender (finding) [facility] Start: 12-14-2024 Sexual orientation Heterosexual (stoney [place]) [facility] Sexual Orientation [facility] Start: 02-01-2010 End: 03-18-2025 Sex Male (finding) [facility] Start: 03-31-2025 Alcohol Comment [facility] NE[facility]: Highlighted rowStart: DORY History of tobacco use Passive smoker [facility] Medical Equipment Procedure Code Equipment Code Equipment Origin al Text Equipment Identifier Dates -12/20/2022 [id number] Start: 12-20-2022 Comment on above: Description: [facility] ; Saline only flushes Unknown Unknown 07/19/24 Unknown Unknown FDA Start: 07-19-2024 Comment on above: Right sided [employer] Unknown Unknown 07/19/24 Unknown Unknown FDA Start: 07-19-2024 Comment on above: Right sided [employer] Unknown Unknown 07/19/24 Unknown Unknown FDA Start: 07-19-2024 Comment on above: Right sided [employer] Unknown Unknown 07/19/24 Unknown Unknown FDA Start: 07-19-2024 Comment on above: Right sided [employer] Unknown Unknown 07/19/24 Unknown Unknown FDA Start: 07-19-2024 Comment on above: Right sided [employer] Unknown Unknown 07/19/24 Unknown Unknown FDA Start: 07-19-2024 Comment on above: Right sided [employer] Unknown Unknown 07/19/24 Unknown Unknown FDA Start: 07-19-2024 Comment on above: Right sided [employer] Functional Status Date Assessment Result Facility 03-10-2025 Functional Status N/A [facility] 09-27-2024 Functional Status N/A [facility] 09-10-2024 Functional Status N/A [facility] 07-29-2024 Are you deaf, or do you have serious difficulty hearing No 07/29/2024 4:30 PM EDT Geni Baez RN No [facility] 07-29-2024 Are you blind, or do you have serious difficulty seeing, even when wearing glasses No 07/29/2024 4:30 PM EDT Geni Baez RN No [facility] 07-29-2024 Do you have serious difficulty walking or climbing stairs No 07/29/2024 4:30 PM EDT Geni Baez RN No [facility] 07-29-2024 Do you have difficul ty dressing or bathing No 07/29/2024 4:30 PM EDT Geni Baez RN No [facility] 07-29-2024 Because of a physica l, mental, or emotional condition, do you have difficulty doing errands alone such as visiting a physician's office or shopping No 07/29/2024 4:30 PM EDT Geni Baez RN No [facility] 07-22-2024 Functional Status N/A [facility] 02-14-2024 Functional Status N/A [facility] 01-28-2024 Functional Status No [facility] 10-09-2023 Functional Status N/A [facility] 05-07-2023 Functional Status N/A [facility] 04-29-2023 Functional Status No [facility] 03-18-2023 Functional Status N/A [facility] 01-22-2023 Functional Status No [facility] 10-24-2022 Functional Status N/A [facility] 10-03-2022 Functional Status No [facility] 08-20-2022 Functional Status N/A [facility] 08-14-2022 Functional Status N/A [facility] [place] 05-31-2022 Functional Status N/A [facility] [place] 04-03-2022 Functional Status N/A [facility] Mental Status Date Assessment Result Facility 07-29-2024 Because of a physica l, mental, or emotional condition, do you have serious difficulty concentrating, remembering, or making decisions No 07/29/2024 4:30 PM EDT Geni Baez RN No [facility] Clinical Notes 11-14-2019 to 07-19-2025 Telephone Encounter - Laura Slaughter RN - 06/18/2025 12:51 PM EDTTelephone Encounter - Laura Slaughter RN - 06/18/2025 12:51 PM EDTMattJANINE Hernández - 04/28/2025 9:30 AM EDT Note Date & Type Note Facility 07-19-2025 Note [facility] 07-15-2025 Note [facility] 07-15-2025 Note [facility] 07-13-2025 Note HNO ID: [id number] Author: GIGI DAWSON RN Service: Nursing Author Type: Registered Nurse Type: Progress Notes Filed: 07/13/2025 10:48 Note Text: Radiology Service Progress Note PATIENT NAME: Mervat Grayson DATE OF SERVICE: July 13, 2025 TIME: 10:42 AM PATIENT IDENTITY VERIFICATION COMPLETED USING TWO (2) STANDARD IDENTIFIERS: Name and Date of confirmed by patient verbally. FALL RISK: Has the patient had 2 falls in the last year?no PATIENT GENDER DATA: Assigned male at PATIENT RELEVANT IMPLANT DATA REVIEWED: No ALLERGIES: Reviewed and unchanged MEDICATIONS REVIEWED: NO PROCEDURE: MRI IV SITE: Ambulatory: A power injectable Mediport was accessed in the Right chest with a 0.75 inch 20 gauge needle. Blood Return, Flushed easily with normal saline, Good Blood Return Post Injection, Flushed with 20 cc saline followed by Heparin 500 units/5 cc, and No Complications PERIPHERAL IV ACCESS: Discontinued PATIENT TOLERATED PROCEDURE: Without incident. PATIENT DISCHARGED TO: Home/Self Care SIGNED BY: Gigi Dawson RN [facility] 07-12-2025 Hospital Discharg e instructions Patient Education 07/12/2025 09:06:12 Kidney Stones Kidney Stones Kidney stones are solid, rock-like deposits that form inside of the kidneys. The kidneys are a pair of organs that make urine. A kidney stone may form in a kidney and move into other parts of the urinary tract, including the tubes that connect the kidneys to the bladder (ureters), the bladder, and the tube that carries urine out of the body (urethra). As the stone moves through these areas, it can cause intense pain and block the flow of urine. Kidney stones are created when high levels of certain minerals are found in the urine. The stones are usually passed out of the body through urination, but in some cases, medical treatment may be needed to remove them. What are the causes? Kidney stones may be caused by: A condition in which certain glands produce too much parathyroid hormone (primary hyperparathyroidism), which causes too much calcium buildup in the blood. A buildup of uric acid crystals in the bladder (hyperuricosuria). Uric acid is a chemical that the body produces when you eat certain foods. It usually leaves the body in the urine. Narrowing (stricture) of one or both of the ureters. A kidney blockage that is present at (congenital obstruction). Past surgery on the kidney or the ureters. What increases the risk? The following factors may make you more likely to develop this condition: Having had a kidney stone in the past. Having a family history of kidney stones. Not drinking enough water. Eating a diet that is high in protein, salt (sodium), or sugar. Being overweight or obese. What are the signs or symptoms? Symptoms of a kidney stone may include: Pain in the side of the abdomen, right below the ribs (flank pain). Pain usually spreads (radiates) to the groin. Needing to urinate often or urgently. Painful urination. Blood in the urine (hematuria). Nausea. Vomiting. Fever and chills. How is this diagnosed? This condition may be diagnosed based on: Your symptoms and medical history. A physical exam. Blood tests. Urine tests. These may be done before and after the stone passes out of your body through urination. Imaging tests, such as a CT scan, abdominal X-ray, or ultrasound. A procedure to examine the inside of the bladder (cystoscopy). How is this treated? Treatment for kidney stones depends on the size, location, and makeup of the stones. Kidney stones will often pass out of the body through urination. You may need to: Increase your fluid intake to help pass the stone. In some cases, you may be given fluids through an IV and may need to be monitored in the hospital. Take medicine for pain. Make changes in your diet to help prevent kidney stones from coming back. Sometimes, procedures are needed to remove a kidney stone. This may involve: A procedure to break up kidney stones using: ?A focused beam of light (laser therapy). ?Shock waves (extracorporeal shock wave lithotripsy). Surgery to remove kidney stones. This may be needed if you have severe pain or have stones that block your urinary tract. Follow these instructions at home: Medicines Take xfgk-eis-wdfxxpw and prescription medicines only as told by your health care provider. Ask your health care provider if the medicine prescribed to you requires you to avoid driving or using heavy machinery. Eating and drinking Drink enough fluid to keep your urine pale yellow. You may be instructed to drink at least 8 10 glasses of water each day. This will help you pass the kidney stone. If directed, change your diet. This may include: ?Limiting how much sodium you eat. ?Eating more fruits and vegetables. ?Limiting how much animal protein you eat. Animal proteins include red meat, poultry, fish, and eggs. ?Eating a normal amount of calcium (1,000 1,300 mg per day). Follow instructions from your health care provider about eating or drinking restrictions. General instructions Collect urine samples as told by your health care provider. You may need to collect a urine sample: ?24 hours after you pass the stone. ?8 12 weeks after you pass the kidney stone, and every 6 12 months after that. Strain your urine every time you urinate, for as long as directed. Use the strainer that your health care provider recommends. Do not throw out the kidney stone after passing it. Keep the stone so it can be tested by your health care provider. Testing the makeup of your kidney stone may help prevent you from getting kidney stones in the future. Keep all follow-up visits. You may need follow-up X-rays or ultrasounds to make sure that your stone has passed. How is this prevented? To prevent another kidney stone: Drink enough fluid to keep your urine pale yellow. This is the best way to prevent kidney stones. Eat a healthy diet. Follow recommendations from your health care provider about foods to avoid. Recommendations vary depending on the type of kidney stone that you have. You may be instructed to eat a low-protein diet. Maintain a healthy weight. Where to find more information National Kidney Foundation (NKF): www.kidney.org U[employer] (UCF): www.urologyhealth.org Contact a health care provider if: You have pain that gets worse or does not get better with medicine. Get help right away if: You have a fever or chills. You develop severe pain. You develop new abdominal pain. You faint. You are unable to urinate. Summary Kidney stones are solid, rock-like deposits that form inside of the kidneys. Kidney stones can cause nausea, vomiting, blood in the urine, abdominal pain, and the urge to urinate often. Treatment for kidney stones depends on the size, location, and makeup of the stones. Kidney stones will often pass out of the body through urination. Kidney stones can be prevented by drinking enough fluids, eating a healthy diet, and maintaining a healthy weight. This information is not intended to replace advice given to you by your health care provider. Make sure you discuss any questions you have with your health care provider. Document Revised: 01/16/2023 Document Reviewed: 01/16/2023 [employer] Patient Education 2023 [facility]. Follow Up Care 06/24/2025 09:41:32 With:RYLEE ARRINGTON, Corey Casillas, URL Address: [address] [place] [address]- When: Unknown Comments:Appointment has already been scheduled [facility] 07-12-2025 Note Patient Education Urology Kidney Stones Kidney stones are solid, rock-like deposits that form inside of the kidneys. The kidneys are a pair of organs that make urine. A kidney stone may form in a kidney and move into other parts of the urinary tract, including the tubes that connect the kidneys to the bladder (ureters), the bladder, and the tube that carries urine out of the body (urethra). As the stone moves through these areas, it can cause intense pain and block the flow of urine. Kidney stones are created when high levels of certain minerals are found in the urine. The stones are usually passed out of the body through urination, but in some cases, medical treatment may be needed to remove them. What are the causes? Kidney stones may be caused by: ??? A condition in which certain glands produce too much parathyroid hormone (primary hyperparathyroidism), which causes too much calcium buildup in the blood. ??? A buildup of uric acid crystals in the bladder (hyperuricosuria). Uric acid is a chemical that the body produces when you eat certain foods. It usually leaves the body in the urine. ??? Narrowing (stricture) of one or both of the ureters. ??? A kidney blockage that is present at (congenital obstruction). ??? Past surgery on the kidney or the ureters. What increases the risk? The following factors may make you more likely to develop this condition: ??? Having had a kidney stone in the past. ??? Having a family history of kidney stones. ??? Not drinking enough water. ??? Eating a diet that is high in protein, salt (sodium), or sugar. ??? Being overweight or obese. What are the signs or symptoms? Symptoms of a kidney stone may include: ??? Pain in the side of the abdomen, right below the ribs (flank pain). Pain usually spreads (radiates) to the groin. ??? Needing to urinate often or urgently. ??? Painful urination. ??? Blood in the urine (hematuria). ??? Nausea. ??? Vomiting. ??? Fever and chills. How is this diagnosed? This condition may be diagnosed based on: ??? Your symptoms and medical history. ??? A physical exam. ??? Blood tests. ??? Urine tests. These may be done before and after the stone passes out of your body through urination. ??? Imaging tests, such as a CT scan, abdominal X-ray, or ultrasound. ??? A procedure to examine the inside of the bladder (cystoscopy). How is this treated? Treatment for kidney stones depends on the size, location, and makeup of the stones. Kidney stones will often pass out of the body through urination. You may need to: ??? Increase your fluid intake to help pass the stone. In some cases, you may be given fluids through an IV and may need to be monitored in the hospital. ??? Take medicine for pain. ??? Make changes in your diet to help prevent kidney stones from coming back. Sometimes, procedures are needed to remove a kidney stone. This may involve: ??? A procedure to break up kidney stones using: ? A focused beam of light (laser therapy). ? Shock waves (extracorporeal shock wave lithotripsy). ??? Surgery to remove kidney stones. This may be needed if you have severe pain or have stones that block your urinary tract. Follow these instructions at home: Medicines ??? Take tdeo-wej-ihfbftz and prescription medicines only as told by your health care provider. ??? Ask your health care provider if the medicine prescribed to you requires you to avoid driving or using heavy machinery. Eating and drinking ??? Drink enough fluid to keep your urine pale yellow. You may be instructed to drink at least 8?10 glasses of water each day. This will help you pass the kidney stone. ??? If directed, change your diet. This may include: ? Limiting how much sodium you eat. ? Eating more fruits and vegetables. ? Limiting how much animal protein you eat. Animal proteins include red meat, poultry, fish, and eggs. ? Eating a normal amount of calcium (1,000?1,300 mg per day). ??? Follow instructions from your health care provider about eating or drinking restrictions. General instructions ??? Collect urine samples as told by your health care provider. You may need to collect a urine sample: ? 24 hours after you pass the stone. ? 8?12 weeks after you pass the kidney stone, and every 6?12 months after that. ??? Strain your urine every time you urinate, for as long as directed. Use the strainer that your health care provider recommends. ??? Do not throw out the kidney stone after passing it. Keep the stone so it can be tested by your health care provider. Testing the makeup of your kidney stone may help prevent you from getting kidney stones in the future. ??? Keep all follow-up visits. You may need follow-up X-rays or ultrasounds to make sure that your stone has passed. How is this prevented? To prevent another kidney stone: ??? Drink enough fluid to keep your urine pale yellow. Thi (more content not included)... [facility] 06-18-2025 Note ED Patient Education Note Urology Kidney Stones Kidney stones are solid, rock-like deposits that form inside of the kidneys. The kidneys are a pair of organs that make urine. A kidney stone may form in a kidney and move into other parts of the urinary tract, including the tubes that connect the kidneys to the bladder (ureters), the bladder, and the tube that carries urine out of the body (urethra). As the stone moves through these areas, it can cause intense pain and block the flow of urine. Kidney stones are created when high levels of certain minerals are found in the urine. The stones are usually passed out of the body through urination, but in some cases, medical treatment may be needed to remove them. What are the causes? Kidney stones may be caused by: ??? A condition in which certain glands produce too much parathyroid hormone (primary hyperparathyroidism), which causes too much calcium buildup in the blood. ??? A buildup of uric acid crystals in the bladder (hyperuricosuria). Uric acid is a chemical that the body produces when you eat certain foods. It usually leaves the body in the urine. ??? Narrowing (stricture) of one or both of the ureters. ??? A kidney blockage that is present at (congenital obstruction). ??? Past surgery on the kidney or the ureters. What increases the risk? The following factors may make you more likely to develop this condition: ??? Having had a kidney stone in the past. ??? Having a family history of kidney stones. ??? Not drinking enough water. ??? Eating a diet that is high in protein, salt (sodium), or sugar. ??? Being overweight or obese. What are the signs or symptoms? Symptoms of a kidney stone may include: ??? Pain in the side of the abdomen, right below the ribs (flank pain). Pain usually spreads (radiates) to the groin. ??? Needing to urinate often or urgently. ??? Painful urination. ??? Blood in the urine (hematuria). ??? Nausea. ??? Vomiting. ??? Fever and chills. How is this diagnosed? This condition may be diagnosed based on: ??? Your symptoms and medical history. ??? A physical exam. ??? Blood tests. ??? Urine tests. These may be done before and after the stone passes out of your body through urination. ??? Imaging tests, such as a CT scan, abdominal X-ray, or ultrasound. ??? A procedure to examine the inside of the bladder (cystoscopy). How is this treated? Treatment for kidney stones depends on the size, location, and makeup of the stones. Kidney stones will often pass out of the body through urination. You may need to: ??? Increase your fluid intake to help pass the stone. In some cases, you may be given fluids through an IV and may need to be monitored in the hospital. ??? Take medicine for pain. ??? Make changes in your diet to help prevent kidney stones from coming back. Sometimes, procedures are needed to remove a kidney stone. This may involve: ??? A procedure to break up kidney stones using: ? A focused beam of light (laser therapy). ? Shock waves (extracorporeal shock wave lithotripsy). ??? Surgery to remove kidney stones. This may be needed if you have severe pain or have stones that block your urinary tract. Follow these instructions at home: Medicines ??? Take espy-nfb-kptyubs and prescription medicines only as told by your health care provider. ??? Ask your health care provider if the medicine prescribed to you requires you to avoid driving or using heavy machinery. Eating and drinking ??? Drink enough fluid to keep your urine pale yellow. You may be instructed to drink at least 8?10 glasses of water each day. This will help you pass the kidney stone. ??? If directed, change your diet. This may include: ? Limiting how much sodium you eat. ? Eating more fruits and vegetables. ? Limiting how much animal protein you eat. Animal proteins include red meat, poultry, fish, and eggs. ? Eating a normal amount of calcium (1,000?1,300 mg per day). ??? Follow instructions from your health care provider about eating or drinking restrictions. General instructions ??? Collect urine samples as told by your health care provider. You may need to collect a urine sample: ? 24 hours after you pass the stone. ? 8?12 weeks after you pass the kidney stone, and every 6?12 months after that. ??? Strain your urine every time you urinate, for as long as directed. Use the strainer that your health care provider recommends. ??? Do not throw out the kidney stone after passing it. Keep the stone so it can be tested by your health care provider. Testing the makeup of your kidney stone may help prevent you from getting kidney stones in the future. ??? Keep all follow-up visits. You may need follow-up X-rays or ultrasounds to make sure that your stone has passed. How is this prevented? To prevent another kidney stone: ??? Drink enough fluid to keep your urine pale yel (more content not included)... [facility] 06-18-2025 Telephone encounter Note Please sign pended labs and CT scans-FISH from Dr. Anderson Thank You! Laura Slaughter RN [facility] 06-18-2025 Miscellaneous Notes Please sign pended labs and CT scans-FISH from Dr. Anderson Thank You! Laura Slaughter RN documented in this encounter [facility] 04-28-2025 History of Presen t illness Narrative Images from the original note were not included. 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 Respiratory: No acute distress Cardiovascular: Radial pulse is 2+. Capillary refill time is less than 2 seconds. Musculoskeletal: Mild effusion noted upon inspection of the right elbow. Patient exhibits limited range of motion in the elbow, lacking 10 degrees of extension and flexion only to 115 degrees. Pain is present at end range of motion with tightness, likely due to elbow effusion. Pronation and supination are near full, but pain is present at end range of motion, lacking approximately 5 to 10 degrees in both supination and pronation. [employer] Machine Tender strength is 5 out of 5. There is no significant palpable crepitus with elbow joint motion. Patient reports no pain in the proximal shoulder or distal bicep. 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 Bicep and triceps function without difficulty, not aggressively stressed with elbow effusion. Skin: Skin shows wrinkles. Neurological: Patient reports no paresthesias. Other observations: None. Orders Placed This Encounter Procedures XR elbow 3+ views right Reason for exam:: PAIN Procedures Results - Imaging: - X-rays show significant elbow arthritis, mostly ulnar humeral - No evidence of fracture ICD-10-CM 1. Right elbow pain M25.521 XR elbow 3+ views right 2. Effusion of right elbow M25.421 predniSONE (Deltasone) 20 MG tablet 3. 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 X-rays were reviewed, revealing significant elbow arthritis, predominantly ulnar humeral. 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 He has been using Motrin and applying ice, which have provided some relief, but he continues to experience limited range of motion and discomfort. The x-ray findings were discussed at the bedside, confirming no evidence of fracture. Both surgical and nonsurgical treatment options were discussed. Given his previous history of similar symptoms, conservative measures were recommended. He will commence a prednisone taper and discontinue Motrin use. Tylenol was suggested for breakthrough pain management. He was also encouraged to continue with elbow compression and ice application. If symptoms persist, an intra-articular injection under ultrasound guidance may be considered, given his history. Treatment plan: He will commence a prednisone taper and discontinue Motrin use. Tylenol was suggested for breakthrough pain management. He was also encouraged to continue with elbow compression and ice application. Clinical decision making: Both surgical and nonsurgical treatment options were discussed. Given his previous history of similar symptoms, conservative measures were recommended. If symptoms persist, an intra-articular injection under ultrasound guidance may be considered, given his history. Follow-up: The patient will follow up in 3 weeks. Questions answered in laymen terms at the bedside. The diagnosis, home exercise plan and any ongoing restrictions/ recommendations reviewed. If unable to be reached in office, I recommend evaluation at nearest Emergency Room if any symptoms worsened or new symptoms develop for requiring urgent evaluation. Visit was preformed using [employer] pilot speech recognition. documented in this encounter [facility] 04-11-2025 Note [facility] 04-11-2025 History of Presen t illness Narrative PATIENT NAME: Mervat Grayson DATE: 04/12/2025 PRIMARY CARE PHYSICIAN: Dr. Lorenzo Marin OTHER PHYSICIANS: Dr. Mervat Slaughter, Dr. Thalia Troy, Dr. Kiko Treadwell, Dr. Key, Dr. Micha Mccabe, Dr. Shaheed Norman, Dr. JARROD Goncalves ([facility] ID) Portions of this encounter note have been copied from the note from 01/11/2025 and has been updated where appropriate, and reflect my current medical decision making from today. CC: This is a 74 year old male with a history of rectal cancer, seen for scheduled follow-up. INTERIM HISTORY: Since the patient's last visit here he was seen by Dr. Norman on 03/31/2025 for evaluation of rectal bleeding. Anoscopy revealed moderately enlarged internal hemorrhoids which were banded. His bleeding is since resolved. Otherwise the patient has had no significant medical changes. Overall he feels well today. Abdominal pain has resolved. Energy and appetite are excellent. MEDICATIONS: Current Outpatient Medications Medication Sig skin resp.factor/shark tracy.oil (HEMORRHOID CREAM RECTAL) by RECTAL route as needed. rivaroxaban (XARELTO) 20 mg tablet Take 1 tablet by mouth once daily. zolpidem (AMBIEN) 5 mg tablet Take 1 tablet by mouth at bedtime as needed for up to 180 days. calcium carbonate (CALCIUM 600 ORAL) Take 1 tablet by mouth once daily. glucosamine/chondr perez A sod (GLUCOSAMINE-CHONDROITIN) 1,500-1,200 mg/30 mL liqd Take by mouth once daily. predniSONE (DELTASONE) 5 mg tablet Take 5 mg by mouth once daily. valsartan (DIOVAN) 80 mg tablet Take 80 mg by mouth once daily. carvedilol (COREG) 6.25 mg tablet Take 6.25 mg by mouth twice daily with meals. tamsulosin ER (FLOMAX) 0.4 mg cap Take [...] History of kidney stones Non-ischemic cardiomyopathy (HCC) Perforation bowel (HCC) 07/29/2024 Pulmonary emboli (HCC) 2019 left lower lobe [...] Never Smokeless tobacco: Never Vaping Use Vaping status: Never Used Substance Use Topics Alcohol use: Yes Comment: 1 beer daily Drug use: No REVIEW OF SYSTEMS: General: [...] paralysis, seizures or tremors PHYSICAL EXAM: BP 129/82 Pulse 69 Temp 36.5 C (97.7 F) (Temporal) Resp 16 Wt 105.4 kg (232 lb 5.8 oz) SpO2 98% BMI 29.83 kg/m ECOG 0 General: Alert and oriented, no distress, pleasant and cooperative. Heart: Regular, normal S1 and S2, no murmurs, rubs, or gallops Lungs: Clear to auscultation bilaterally Abdomen: palpable mass in the RLQ about 2-3 cm x 1 cm. Tender on lateral aspect of mass. No protrusion with valsalva Extremities: Feet/ankles without edema, posterior tibial pulses full and symmetrical PATHOLOGY: 07/23/2024 Right hemicoloctomy A. Soft tissue, umbilical region, excision: - Benign fibroadipose and fibromembranous tissue with acute inflammation, consistent with hernia sac. B. Right colon, terminal ileum, and appendix, right hemicolectomy: - Dilated colon with transmural suppurative inflammation and necrosis, consistent with ischemic bowel injury. - Appendix with fibrolipomatous obliteration and acute serositis. - Small bowel with acute serositis. - Benign lymph nodes. 04/09/2023 Anal canal, polyp, biopsy: Squamous mucosa polyp. 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 NO RESIDUAL VIABLE TUMOR. NO LYMPHADENOPATHY. Since multiple priors most recently 06/04/2024, post treatment primary tumor assessment: Complete/near complete response. -Free text summary of relevant findings/interval change. mrTRG: Grade 2 - Good response Suspicious Mesorectal lymph nodes: No. Suspicious Extramesorectal lymph nodes: No. INFLAMMATORY CHANGES WITHIN THE RIGHT LOWER QUADRANT ABDOMINAL WALL WITH A LINEAR TRACT EXTENDING TO THE ANTERIOR ABDOMINAL WALL WHICH COULD REFLECT A SINUS TRACT. 11/24/2024 Sigmoidoscopy (Dr. Norman) Scar tissue in rectum, otherwise no abnormalities. 11/10/2024 CT abdomen/pelvis IMPRESSION: 1. Persistent inflammatory changes along the surgical staple line in the right colon status post drainage catheter removal. No evidence of a drainable fluid collection. 2. Cholelithiasis. 3. Trace abdominal ascites, increased. 4. Nonobstructing bilateral renal stones. 5. Otherwise no evidence of intra-abdominal/pelvic metastases. 08/25/2024 CT abdomen/pelvis IMPRESSION: 1. No CT evidence of recurrent or metastatic disease in the abdomen or pelvis. 2. Significant improvement of the multiple fluid collections previously seen within the abdomen or pelvis, with bilateral percutaneous drains remaining in place. The respective fluid collection cavities are now collapsed around either pigtail. 3. Persistent rim-enhancing pelvic fluid collection. Though decreased in size, measuring 3.0 x 2.2 cm (previously 4.0 x 2.6 cm), this finding remains concerning for abscess 3.0 x 2.2 cm (previously 4.0 x 2.6 cm). 4. Another lobulated 3.8 x 2.1 cm (previously 4.3 x 2.1 cm) fluid collection adjacent to the bowel anastomosis persists. Given the lack of convincing peripheral enhancement, this may reflect a postoperative seroma. However, sterility cannot be confirmed at CT imaging. 5. Additional incidental findings as above. 08/13/2024 CT abdomen/pelvis IMPRESSION: Postsurgical changes of right hemicolectomy with 3 fluid collections in the pelvis with enhancing dos santos, suspicious for abscesses. The right lower quadrant 1 is located immediately adjacent to the ileocolonic anastomosis and contains foci of air, suspicious for leak 07/21/2024 Screening colonoscopy Impression: Scar in the distal rectum. The examination was otherwise normal on direct and retroflexion views. No specimens collected. 06/04/2024 MRI rectum IMPRESSION: DENSE SCAR INVOLVING THE LOW RECTAL WALL / ANAL CANAL, UNCHANGED FROM PRIORS. NO RESIDUAL VIABLE TUMOR. NO LYMPHADENOPATHY. Since 04/18/2023, post treatment primary tumor assessment: Complete/near complete response. -Free text summary of relevant findings/interval change. mrTRG: Grade 2 - Good response Suspicious Mesorectal lymph nodes: No. Suspicious Extramesorectal lymph nodes: No. 02/25/2024 Sigmoidoscopy (Dr. Norman) Scar in the distal rectum. The examination was otherwise normal. 12/20/2023 CT chest IMPRESSION: 1. Stable nonspecific subcentimeter pulmonary nodules as described above. There are also stable small nonspecific mediastinal lymph nodes and right hilar lymph node. Would advise continued close attention on follow-up/surveillance scans. 12/20/2023 CT abdomen/pelvis IMPRESSION: 1. No evidence of metastatic disease in the abdomen or pelvis. 12/03/2023 MRI rectum IMPRESSION: DENSE SCAR INVOLVING THE LOW RECTAL WALL / ANAL CANAL, UNCHANGED FROM PRIOR. NO RESIDUAL VIABLE TUMOR. NO LYMPHADENOPATHY. 11/05/2023 Sigmoidoscopy One 3 mm polyp in the rectum. Scar in the distal rectum. The examination was otherwise normal. 07/09/2023 Sigmoidoscopy Scar in the distal rectum. Examination otherwise normal. 06/20/2023 CT chest IMPRESSION: 1. Several bilateral nonspecific pulmonary nodules are again identified, stable in size and number from the prior study of 12/10/2022. 2. Mild right hilar adenopathy appears more conspicuous. Additional mildly prominent hilar and mediastinal lymph nodes elsewhere, stable. Correlation with continued follow-up examinations is recommended. 06/20/2023 CT abdomen/pelvis IMPRESSION: Stable CT examination of the abdomen. No CT evidence for metastatic disease. Incidental note is again made of cholelithiasis and bilateral nonobstructive nephrolithiasis. 04/18/2023 MRI rectum IMPRESSION: Dense scar in [...] was benign. 01/22/2023 [place] extremity [place] Extensive deep venous thrombosis of the left [...] to the thorax. 10/01/2022 MRI abdomen [place] No MRI evidence of liver lesion 09/25/2022 [...] No neoplastic hypermetabolic lesions 09/11/2022 MRI pelvis [place] Low rectal neoplasm with suspected early invasion of the internal anal sphincter at the upper canal (MRI category T3b, N0). Few nonenlarged 2 to 3 mm mesorectal lymph nodes. No suspicious lymphadenopathy. 09/11/2022 CT chest, abdomen, pelvis ([facility]) Possible low-attenuation lesion right hepatic lobe under centimeter in size. MRI could better characterize this should be performed with IV contrast. Nodular density within the left adrenal gland which could represent metastasis or adenoma. Multiple noncalcified pulmonary nodules worrisome for metastatic disease. Largest measures approxi-1 cm in the right upper lobe. LABORATORY DATA: Hemoglobin (g/dL) Date Value 04/12/2025 12.0 08/04/2018 14.3 Hematocrit (%) Date Value 04/12/2025 37.0 08/04/2018 43.1 WBC (k/uL) Date Value 04/12/2025 8.86 08/04/2018 6.24 Platelet Count (k/uL) Date Value 04/12/2025 232 08/04/2018 216 CEA 09/05/2022 14.4 09/17/2022 15.7 10/02/2022 14.1 10/29/2022 10.5 11/19/2022 3.7 12/17/2022 1.7 01/22/2023 2.4 03/19/2023 2.0 09/05/2023 1.8 11/21/2023 1.8 08/24/2024 1.8 11/25/2023 1.4 04/12/2025 1.6 ASSESSMENT/PLAN: 1. Rectal cancer (HCC) - ICD9: [...] 10/10/2022 was negative. It was felt the patient had localized disease, and recommendations were to proceed with neoadjuvant chemoradiation. Treatment with capecitabine 825 mg/m2 twice daily concurrent with pelvic radiation given 10/08/2022 through 11/19/2022. With treatment the patient's rectal pain and bleeding resolved. Follow-up CT scans 12/10/2022 stable with no evidence of metastatic disease. Subsequently the patient continued neoadjuvant treatment with chemotherapy consisting of FOLFOX x7 cycles 12/25/2022 through 03/21/2023. It was then elected to discontinue chemotherapy to minimize toxicity. Follow-up colonoscopy 04/09/2023 revealed no evidence of disease Rectal MRI 04/18/2023 revealed no evidence of disease. It was then elected to postpone surgery and proceed with active surveillance. Most recent full colonoscopy July 2024 stable. Most recent staging CT scans October 2024 negative for metastases. Most recent sigmoidoscopy November 2024 negative. Most recent rectal MRI December 2024 stable. Currently the patient has no evidence of disease. At this time the patient will continue with active surveillance: Exam, KHRIS, CEA and flex sig: year 0-2 every 3 months, years 3-4 every 6 months, years 5-10 yearly MRI pelvis: Years 0-4 every 6 months, years 5-[address] chest, abdomen, pelvis: Years 0-2 every 6 months, years 3-10 yearly Colonoscopy: 1 year after treatment, then every 3 years. Will order labs, staging CT scans, and port flush in 3 months, then return for follow-up. Next rectal MRI June 2025. Next flex sig September [address] Norman. Next full colonoscopy July 2027 (pending the patient's condition). 2. Rheumatoid arthritis Diagnosed 2005. Previous treatment has included steroids, Enbrel, and methotrexate. Currently stable on low-dose steroids (prednisone 5 mg daily). Continue management per rheumatology (Dr. Treadwell) 3. Cardiomyopathy History of nonischemic cardiomyopathy. Stable on current medications. Continue management per PCP/cardiology. 4. History of [...] post anticoagulation with Eliquis x 2 years. January 2023 the patient developed acute left leg pain and swelling. Lower extremity Doppler scan 01/22/2023 revealed an extensive DVT of the left leg. Anticoagulation with Xarelto started 01/23/2023. Currently stable. Plans will be to continue anticoagulation indefinitely. 7. Perforated colon Surveillance colonoscopy 07/21/2024 revealed no abnormalities, but the procedure was complicated by perforation of the cecum. The patient underwent urgent surgery with laparoscopic right colectomy on 07/22/2024. Postop he required multiple drain placements and prolonged IV antibiotics for intra-abdominal abscesses. Currently stable and asymptomatic. Continue management per [facility] colorectal surgery. Minerva Anderson MD documented in this encounter [facility] 04-08-2025 Telephone encounter Note IRB# [id number]: Vascular events in patients undergoing same-day nonCardiac surgery - [facility] PI: Anika Barnes MD, LORENA, NENA. Outcomes Research Department. [facility] [place]. [facility]. This is a research study note. Patient assessments recorded here should not guide either clinical care or clinical decision-making. I spoke with patient regarding the 90 day follow-up for the [facility]IANCE study. The 90-day follow-up, 90-day Functional capacity, 90-day Quality of life, and 90-day Frailty forms were asked and completed by the patient over the phone. All other relevant forms were also completed if applicable to the patient. The study period is now complete. Nelia Calrson, Research Coordinator Research Fellow Outcomes Research [facility] 04-08-2025 Miscellaneous Notes IRB# [id number]: Vascular events in patients undergoing same-day nonCardiac surgery - [facility] PI: Anika Barnes MD, LORENA, NENA. Outcomes Research Department. Anest[facility] [place]. [facility]. This is a research study note. Patient assessments recorded here should not guide either clinical care or clinical decision-making. I spoke with patient regarding the 90 day follow-up for the VALIANCE study. The 90-day follow-up, 90-day Functional capacity, 90-day Quality of life, and 90-day Frailty forms were asked and completed by the patient over the phone. All other relevant forms were also completed if applicable to the patient. The study period is now complete. Nelia Carlson, Research Coordinator Research Fellow Outcomes Research [facility] documented in this encounter [facility] 06-11-2025 History of Presen t illness Narrative COLORECTAL SURGERY March 31, 2025 Mervat Grayson 74 year old Chief Complaint: rectal bleeding History of Present Illness: Mervat Grayson is a 74 year old male presents today for evaluation of rectal bleeding. He is s/p Laparoscopic Right Colectomy, Umbilical Hernia Repair on 07/23/2024 due to colon perforation s/p colonoscopy Scheduled for next sigmoidoscopy in May 2025 Sigmoidoscopy 11/24/24 - Scar in the rectum. - The examination was otherwise normal. - No specimens collected. MRI rectum 01/04/25 DENSE SCAR INVOLVING THE LOW RECTAL WALL / ANAL CANAL, UNCHANGED FROM PRIORS. NO RESIDUAL VIABLE TUMOR. NO LYMPHADENOPATHY. Since multiple priors most recently 06/04/2024, post treatment primary tumor assessment: Complete/near complete response. -Free text summary of relevant findings/interval change. mrTRG: Grade 2 - Good response Suspicious Mesorectal lymph nodes: No. Suspicious Extramesorectal lymph nodes: No. INFLAMMATORY CHANGES WITHIN THE RIGHT LOWER QUADRANT ABDOMINAL WALL WITH A LINEAR TRACT EXTENDING TO THE ANTERIOR ABDOMINAL WALL WHICH COULD REFLECT A SINUS TRACT. CT A/P 12/24/24 1. Persistent inflammatory changes along the surgical staple line in the right colon. New enhancing tract extending from this area of inflammatory change through the abdominal wall into the subcutaneous soft tissues suspicious for a fistulous abscess. Trace fluid is noted within the fistulous abscess and it is uncertain if it is drainable. Superimposed neoplasm cannot be excluded. 2. Cholelithiasis. 3. Trace abdominal ascites, decreased. 4. Nonobstructing bilateral renal stones. CT chest 12/24/24 Indeterminate subcentimeter nodular opacities measuring up to 9 mm, some are stable and some are new since 12/20/23. Consider interval follow-up. Since fistula tract debridement, this has completely healed up without issue. Reports several episodes of rectal bleeding a few weeks ago that have since stopped. No pain with these. Otherwise doing well PAST MEDICAL HISTORY Diagnosis Date Acute low back pain with possible spinal stenosis of less than six weeks' duration Adenocarcinoma of rectum (HCC) Arthritis Bilateral renal cysts peripelvic BPH with urinary obstruction Cholelithiasis History of kidney stones Non-ischemic cardiomyopathy (HCC) Perforation bowel (HCC) 07/29/2024 Pulmonary emboli (HCC) 2019 left lower lobe RA (rheumatoid arthritis) (HCC) PAST SURGICAL HISTORY Procedure Laterality Date COLONOSCOPY HAMMERTOE REVISION, ONE TOE HEMORRHOID SURGERY HX HERNIA REPAIR HX LITHOTRIPSY PROC UNILATERAL REMV CATARACT EXTRACAP,INSERT LENS Current Outpatient Medications Medication Sig Dispense Refill rivaroxaban (XARELTO) 20 mg tablet Take 1 tablet by mouth once daily. 90 tablet 2 zolpidem (AMBIEN) 5 mg tablet Take 1 tablet by mouth at bedtime as needed for up to 180 days. 30 tablet 5 calcium carbonate (CALCIUM 600 ORAL) Take 1 tablet by mouth once daily. glucosamine/chondr perez A sod (GLUCOSAMINE-CHONDROITIN) 1,500-1,200 mg/30 mL liqd Take by mouth once daily. predniSONE (DELTASONE) 5 mg tablet Take 5 mg by mouth once daily. valsartan (DIOVAN) 80 mg tablet Take 80 mg by mouth once daily. carvedilol (COREG) 6.25 mg tablet Take 6.25 mg by mouth twice daily with meals. tamsulosin ER (FLOMAX) 0.4 mg cap Take [...] Never Smokeless tobacco: Never Vaping Use Vaping status: Never Used Substance Use Topics Alcohol use: Yes Comment: rarely Drug use: No Physical Exam: BP 135/87 (BP Site: Left Arm, BP Position: Sitting) Pulse 80 Ht 188 cm (6' 2 ) Wt 101.2 kg (223 lb) BMI 28.63 kg/m General Appearance: Well appearing, alert, in no acute distress, well-hydrated, well nourished. Abdomen: soft Anorectal: External exam reveals no lesions. 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 After digital exam with a lubricated finger, the scope was easily inserted. Moderately enlarged right posterior internal hemorrhoids were noted. Anterior scar well healed, no evidence of residual cancer Otherwise normal mucosa was noted. Anoscopy completed. UNIVERSAL PROTOCOL / SAFETY CHECKLIST Procedure to be Performed: Rubber band ligation Sign In: A Moment of CARE was completed. Appropriate PPE (Personal Protective Equipment) worn by all providers involved with the procedure. Special equipment not required. Patient/Surrogate Stated/Verified: Patient name, Date of , Relevant allergies, and The intended procedure Time Out: Relevant labs, photos, and/or imaging studies have been reviewed. Intended patient and procedure match the source document(s) (e.g. consent, H&P, associated studies [imaging, pathology]) match the intended patient and procedure. Consent obtained and matches the intended procedure. Yes. Verbal Correct side/site is not applicable. Medications required for this procedure are not applicable. Fire risk assessed and is not applicable. Implants: are not applicable. Sign Out: Specimens not collected. All instruments, equipment, possible retained foreign bodies are accounted for. Yes. The post-procedure plan of care has been communicated to the patient or surrogate. Preoperative diagnosis: First to second degree hemorrhoids. Procedure: Anoscopy, rubber band ligation of hemorrhoids. Postoperative diagnosis: Same Indications: This 74 year old was found to have internal hemorrhoids that were not suitable for conservative management. Description of procedure: The patient was placed in the chest-knee position. A time out was completed. A digital rectal exam was performed. A lubricated anoscope was inserted into the anal canal. The three hemorrhoidal pedicles were identified and the redundant rectal mucosa just above the largest internal hemorrhoid (right posterior) suctioned. Using the applicator, 2 rubber bands were placed around the tissue and were noted to be in good position. The mucosa was inspected for bleeding prior to withdrawal of the anoscope. The patient tolerated the procedure well with no excessive pain. The sensitive examination was discussed with the Patient or Patient's Authorized Education Officer. As applicable, any other physician, advance practice provider, medical student, or other health professional student that will be observing or involved in the sensitive examination for educational or training purposes was discussed with the Patient or Authorized Education Officer. The Patient or Authorized Education Officer has agreed to proceed with the sensitive examination. (Sensitive examination includes inspection and/or palpation of the breasts, pelvis, prostate and anorectal regions) Assessment Assessment and Plan: Mervat Grayson is a 74 year old male with rectal cancer in watch and wait protocol and some rectal bleeding, likely right posterior hemorrhoid now s/p rubber band ligation (though some could be radiation proctitis related). Will return to see me in 6 months for surveillance anoscopy. Medical Decision Making: Data Reviewed: Tests & Documents Reviewed/ordered: Review of prior notes from myself Review of prior operative reports Review of Pathology Review of Labs: CBC, BMP, LFT, Albumin Review of Procedures / Tests: Colonoscopy I have independently interpreted: CT Abdomen, CT Pelvis Risk of morbidity, mortality and/or complications of treatment plan: high Deborah Norman MD Colorectal Surgery documented in this encounter [facility] 03-31-2025 Note [facility] 03-19-2025 Miscellaneous Notes Called and left message for patient. Told him he could call back to discuss his symptoms or he can make an appointment with Dr. Norman to be evaluated. Told him Dr. Norman will be back in the office on 03/31. He is scheduled for a sigmoidoscopy on 05/25. Patient calling asking to speak to nurse about some rectal bleeding he is having. He thinks it may be hemorrhoids but he is concerned since last time he had bleeding it turned out to be cancer. CB# [phone] documented in this encounter [facility] 03-19-2025 Telephone encounter Note Called and left message for patient. Told him he could call back to discuss his symptoms or he can make an appointment with Dr. Norman to be evaluated. Told him Dr. Norman will be back in the office on 03/31. He is scheduled for a sigmoidoscopy on 05/25. [facility] 03-18-2025 Telephone encounter Note Patient calling asking to speak to nurse about some rectal bleeding he is having. He thinks it may be hemorrhoids but he is concerned since last time he had bleeding it turned out to be cancer. CB# [phone] [facility] 03-08-2025 Note HNO ID: [id number] Author: CHELSIE KOLB RN Service: ? Author Type: Registered Nurse Type: Progress Notes Filed: 03/08/2025 10:24 Note Text: Sigmoidoscopy order [facility] 03-08-2025 History of Presen t illness Narrative Sigmoidoscopy order documented in this encounter [facility] 02-15-2025 Note Patient Education Urology Kidney Stones Kidney stones are rock-like masses that form inside of the kidneys. Kidneys are organs that make pee (urine). A kidney stone may move into other parts of the urinary tract, including: ??? The tubes that connect the kidneys to the bladder (ureters). ??? The bladder. ??? The tube that carries urine out of the body (urethra). Kidney stones can cause very bad pain and can block the flow of pee. The stone usually leaves your body through your pee. A doctor may need to take out the stone. What are the causes? Kidney stones may be caused by: ??? Too much calcium in the body. This may be caused by too much parathyroid hormone in the blood. ??? Uric acid crystals in the bladder. The body makes uric acid when you eat certain foods. ??? Narrowing of one or both of the ureters. ??? A kidney blockage that you were born with. ??? Past surgery on the kidney or the ureters. What increases the risk? You are more likely to develop this condition if: ??? You have had a kidney stone in the past. ??? Other people in your family have had kidney stones. ??? You do not drink enough water. ??? You eat a diet that is high in protein, salt (sodium), or sugar. ??? You are very overweight (obese). What are the signs or symptoms? Symptoms of a kidney stone may include: ??? Pain in the side of the belly, right below the ribs. Pain usually spreads to the groin. ??? Needing to pee often or right away. ??? Pain when peeing. ??? Blood in your pee. ??? Feeling like you may vomit (nauseous). ??? Vomiting. ??? Fever and chills. How is this treated? Treatment depends on the size, location, and makeup of the kidney stones. The stones will often pass out of the body when you pee. You may need to: ??? Drink more fluid to help pass the stone. ? In some cases, you may be given fluids through an IV tube at the hospital. ??? Take medicine for pain. ??? Change your diet to help keep kidney stones from coming back. Sometimes, you may need: ??? A procedure to break up kidney stones using a beam of light (laser) or shock waves. ??? Surgery to remove the kidney stones. Follow these instructions at home: Medicines ??? Take soxx-prx-sufiapy and prescription medicines only as told by your doctor. ??? Ask your doctor if the medicine prescribed to you requires you to avoid driving or using machinery. Eating and drinking ??? Drink enough fluid to keep your pee pale yellow. ? You may be told to drink at least 8?10 glasses of water each day. This will help you pass the stone. ??? If told by your doctor, change your diet. You may be told to: ? Limit how much salt you eat. ? Eat more fruits and vegetables. ? Limit how much meat, poultry, fish, and eggs you eat. ??? Follow instructions from your doctor about what you may eat and drink. General instructions ??? Collect pee samples as told by your doctor. You may need to collect a pee sample: ? 24 hours after a stone comes out. ? 8?12 weeks after a stone comes out, and every 6?12 months after that. ??? Strain your pee every time you pee. Use the strainer that your doctor recommends. ??? Do not throw out the stone. Keep it so that it can be tested by your doctor. ??? Keep all follow-up visits. You may need X-rays and ultrasounds to make sure the stone has come out. How is this prevented? To prevent another kidney stone: ??? Drink enough fluid to keep your pee pale yellow. This is the best way to prevent kidney stones. ??? Eat healthy foods. ??? Avoid certain foods as told by your doctor. You may be told to eat less protein. ??? Stay at a healthy weight. Where to find more information ??? National Kidney Foundation (NKF): kidney.org ??? [facility] (UCF): urologyhealth.org Contact a doctor if: ??? You have pain that gets worse or does not get better with medicine. Get help right away if: ??? You have a fever or chills. ??? You get very bad pain. ??? You get new pain in your belly. ??? You faint. ??? You cannot pee. This information is not intended to replace advice given to you by your health care provider. Make sure you discuss any questions you have with your health care provider. Document Revised: 05/31/2023 Document Reviewed: 05/31/2023 [employer] Patient Education ? 2023 [facility]. [facility] 01-28-2025 Note Echocardiology Procedure Exam Date/Time Accession # Ordering Dr. Rodriguez Transthoracic 01/26/2025 11:52 EDT [id number] Pato Peña PA-C Complete CPT code 55919 31968 Reason for Exam (Echo Transthoracic Complete) Evaluate Ejec Fraction;Other cardiomyopathies I42.8 Report [facility] [address] [place] [address] Adult Echocardiogram Report Name: MERVAT GRAYSON Study Date: 01/26/2025 11:09 AM BP: 140/88 mmHg Patient Location: [facility] [place] [facility] HR: 60 : 1950 Gender: Male Height: 74 in Age: 74 yrs Ethnicity: [facility] Weight: 222 lb Reason For Study: Evaluate Ejec Fraction;Other cardiomyopathies I42.8 BSA: 2.3 m2 History: Cardiomyopathy Ordering Physician: Casey^Pato^A Referring Physician: Pato Peña Performed By: Carolyn Dorado [facility] Interpretation Summary Ejection Fraction = 40-45%. Left ventricular ejection fraction is mildly reduced. There is mild global hypokinesis of the left ventricle. Grade I diastolic dysfunction, (abnormal relaxation pattern). Procedure A complete two-dimensional transthoracic echocardiogram was performed (2D, M-mode, spectral and color flow Doppler). Study quality is good. Left Ventricle The left ventricle is normal in size. There is normal left ventricular wall thickness. Ejection Fraction = 40-45%. Left ventricular ejection fraction is mildly reduced. There is mild global hypokinesis of the left ventricle. Grade I diastolic dysfunction, (abnormal relaxation pattern). Left Atrium Echocardiology Report The left atrial size is normal. Right Atrium Right atrial size is normal. [...] stenosis. Tricuspid Valve Structurally normal tricuspid valve. There is trace tricuspid regurgitation. No evidence of tricuspid regurgitation. Right ventricular systolic pressure is normal. Pulmonic Valve Trace pulmonic valvular regurgitation. Arteries The aortic root is normal in size. Normal ascending aorta. Pulmonary artery diameter is normal. Venous The inferior vena cava is normal in size, and collapses normally with respiration. Effusion There is no pericardial effusion. MMode/2D Measurements & Calculations RVDd: 3.4 cm LVIDd: 5.1 cm FS: 25.1 % Ao root diam: 3.5 cm IVSd: 1.2 cm LVIDs: 3.8 cm EDV(Teich): 124.4 ml Ao root area: 9.4 cm2 LVPWd: 1.1 cm ESV(Teich): 63.0 ml LA dimension: 4.2 cm EF(Teich): 49.4 % asc Aorta Diam: 4.2 cm LVOT diam: 2.5 cm LVLd ap4: 8.4 cm EDV(MOD-sp2): 138.0 ml LVOT area: 4.8 cm2 EDV(MOD-sp4): 137.0 ml ESV(MOD-sp2): 74.3 ml LVLs ap4: 7.7 cm EF(MOD-sp2): 46.2 % ESV(MOD-sp4): 80.7 ml EF(MOD-sp4): 41.1 % SV(MOD-sp4): 56.3 ml TAPSE: 2.4 cm IVC Diam: 2.6 cm RVIDd/LVIDd: 0.67 EF (MOD-bp): 45.0 % LA Vol Index: 34.6 ml/m2 Doppler Measurements & Calculations Echocardiology Report MV E max gaston: 55.9 cm/sec MV dec time: 0.19 sec Ao V2 max: 110.1 cm/sec LV V1 max P.9 mmHg MV A max gaston: 67.9 cm/sec Ao max P.9 mmHg LV V1 max: 69.6 cm/sec MV E/A: 0.82 Lat Peak E' Gaston: 6.0 cm/sec [place](V,D): 3.0 cm2 E/E' Lat: 9.3 Med Peak E' Gaston: 4.5 cm/sec E/E' Med: 12.5 TR max gaston: 269.3 cm/sec RAP systole: 8.0 mmHg AV VR: 0.63 TR max P.0 mmHg RVSP(TR): 37.0 mmHg Measurements from QLAB ED Mass (HM): 213.0 grams LAEF (HM): 43.0 % BSA (HM): 2.3 m2 FEDERICO (HM): 44.0 ml/m2 LAVmax (HM): 100.0 ml LAVmin (HM): 57.0 ml Pat Height (HM): 188.0 cm Pat Weight (HM): 100.7 kg FINAL REPORT Dictated: 01/26/2025 11:09 am Jason Galvin MD Signed (Electronic Signature): 01/28/2025 12:17 pm Signed by: Jason Galvin MD Transcribed by: [facility] Technologist: LIZETH Ceja [facility] 01-09-2025 Note [facility] 01-09-2025 History of Presen t illness Narrative PATIENT NAME: Mervat Grayson DATE: 01/11/2025 PRIMARY CARE PHYSICIAN: Dr. Lorenzo Marin OTHER PHYSICIANS: Dr. Mervat Slaughter, Dr. Thalia Troy, Dr. Kiko Treadwell, Dr. Key, Dr. Micha Mccabe, Dr. Shaheed Norman, Dr. JARROD Goncalves ([facility] ID) Portions of this encounter note have been copied from the note from 12/07/2024 and has been updated where appropriate, and reflect my current medical decision making from today. CC: This is a 74 year old male with a history of localized rectal cancer and recently diagnosed right lower quadrant abdominal abscess, seen for scheduled follow-up. INTERIM HISTORY: Since the patient's last visit here he underwent MRI rectum on 01/04/2025. This revealed no evidence of residual rectal cancer. However, he was found to have inflammatory changes within the RLQ abdominal wall suggesting a sinus tract with abscess formation. He was seen by colorectal surgery (Dr. Norman), and on the afternoon of 01/04 underwent surgery with an abscess I&D. The wound is still draining, but slowly improving. Since then he has felt much better. The majority of his abdominal pain has resolved. No recent fevers. He still has difficulty sleeping, but much improved with Ambien. MEDICATIONS: Current Outpatient Medications Medication Sig rivaroxaban (XARELTO) 20 mg tablet Take 1 tablet by mouth once daily. Patient should start on January 07, 2025. zolpidem (AMBIEN) 5 mg tablet Take 1 tablet by mouth at bedtime as needed for up to 30 days. calcium carbonate (CALCIUM 600 ORAL) Take 1 tablet by mouth once daily. glucosamine/chondr perez A sod (GLUCOSAMINE-CHONDROITIN) 1,500-1,200 mg/30 mL liqd Take by mouth once daily. predniSONE (DELTASONE) 5 mg tablet Take 5 mg by mouth once daily. valsartan (DIOVAN) 80 mg tablet Take 80 mg by mouth once daily. carvedilol (COREG) 6.25 mg tablet Take 6.25 mg by mouth twice daily with meals. tamsulosin ER (FLOMAX) 0.4 mg cap Take [...] History of kidney stones Non-ischemic cardiomyopathy (HCC) Perforation bowel (HCC) 07/29/2024 Pulmonary emboli (HCC) 2020 left lower lobe [...] Never Smokeless tobacco: Never Vaping Use Vaping status: Never Used Substance Use Topics Alcohol use: Yes Comment: [...] paralysis, seizures or tremors PHYSICAL EXAM: BP 131/83 Pulse 67 Temp 36.4 C (97.6 F) (Temporal) Resp 18 Wt 101.6 kg (223 lb 15.8 oz) SpO2 100% BMI 28.76 kg/m ECOG 0 General: Alert and oriented, no distress, pleasant and cooperative. Heart: Regular, normal S1 and S2, no murmurs, rubs, or gallops Lungs: Clear to auscultation bilaterally Abdomen: palpable mass in the RLQ about 2-3 cm x 1 cm. Tender on lateral aspect of mass. No protrusion with valsalva Extremities: Feet/ankles without edema, posterior tibial pulses full and symmetrical PATHOLOGY: 07/23/2024 Right hemicoloctomy A. Soft tissue, umbilical region, excision: - Benign fibroadipose and fibromembranous tissue with acute inflammation, consistent with hernia sac. B. Right colon, terminal ileum, and appendix, right hemicolectomy: - Dilated colon with transmural suppurative inflammation and necrosis, consistent with ischemic bowel injury. - Appendix with fibrolipomatous obliteration and acute serositis. - Small bowel with acute serositis. - Benign lymph nodes. 04/09/2023 Anal canal, polyp, biopsy: Squamous mucosa polyp. 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 NO RESIDUAL VIABLE TUMOR. NO LYMPHADENOPATHY. Since multiple priors most recently 06/04/2024, post treatment primary tumor assessment: Complete/near complete response. -Free text summary of relevant findings/interval change. mrTRG: Grade 2 - Good response Suspicious Mesorectal lymph nodes: No. Suspicious Extramesorectal lymph nodes: No. INFLAMMATORY CHANGES WITHIN THE RIGHT LOWER QUADRANT ABDOMINAL WALL WITH A LINEAR TRACT EXTENDING TO THE ANTERIOR ABDOMINAL WALL WHICH COULD REFLECT A SINUS TRACT. 11/24/2024 Sigmoidoscopy (Dr. Norman) Scar tissue in rectum, otherwise no abnormalities. 11/10/2024 CT abdomen/pelvis IMPRESSION: 1. Persistent inflammatory changes along the surgical staple line in the right colon status post drainage catheter removal. No evidence of a drainable fluid collection. 2. Cholelithiasis. 3. Trace abdominal ascites, increased. 4. Nonobstructing bilateral renal stones. 5. Otherwise no evidence of intra-abdominal/pelvic metastases. 08/25/2024 CT abdomen/pelvis IMPRESSION: 1. No CT evidence of recurrent or metastatic disease in the abdomen or pelvis. 2. Significant improvement of the multiple fluid collections previously seen within the abdomen or pelvis, with bilateral percutaneous drains remaining in place. The respective fluid collection cavities are now collapsed around either pigtail. 3. Persistent rim-enhancing pelvic fluid collection. Though decreased in size, measuring 3.0 x 2.2 cm (previously 4.0 x 2.6 cm), this finding remains concerning for abscess 3.0 x 2.2 cm (previously 4.0 x 2.6 cm). 4. Another lobulated 3.8 x 2.1 cm (previously 4.3 x 2.1 cm) fluid collection adjacent to the bowel anastomosis persists. Given the lack of convincing peripheral enhancement, this may reflect a postoperative seroma. However, sterility cannot be confirmed at CT imaging. 5. Additional incidental findings as above. 08/13/2024 CT abdomen/pelvis IMPRESSION: Postsurgical changes of right hemicolectomy with 3 fluid collections in the pelvis with enhancing dos santos, suspicious for abscesses. The right lower quadrant 1 is located immediately adjacent to the ileocolonic anastomosis and contains foci of air, suspicious for leak 07/21/2024 Screening colonoscopy Impression: Scar in the distal rectum. The examination was otherwise normal on direct and retroflexion views. No specimens collected. 06/04/2024 MRI rectum IMPRESSION: DENSE SCAR INVOLVING THE LOW RECTAL WALL / ANAL CANAL, UNCHANGED FROM PRIORS. NO RESIDUAL VIABLE TUMOR. NO LYMPHADENOPATHY. Since 04/18/2023, post treatment primary tumor assessment: Complete/near complete response. -Free text summary of relevant findings/interval change. mrTRG: Grade 2 - Good response Suspicious Mesorectal lymph nodes: No. Suspicious Extramesorectal lymph nodes: No. 02/25/2024 Sigmoidoscopy (Dr. Norman) Scar in the distal rectum. The examination was otherwise normal. 12/20/2023 CT chest IMPRESSION: 1. Stable nonspecific subcentimeter pulmonary nodules as described above. There are also stable small nonspecific mediastinal lymph nodes and right hilar lymph node. Would advise continued close attention on follow-up/surveillance scans. 12/20/2023 CT abdomen/pelvis IMPRESSION: 1. No evidence of metastatic disease in the abdomen or pelvis. 12/03/2023 MRI rectum IMPRESSION: DENSE SCAR INVOLVING THE LOW RECTAL WALL / ANAL CANAL, UNCHANGED FROM PRIOR. NO RESIDUAL VIABLE TUMOR. NO LYMPHADENOPATHY. 11/05/2023 Sigmoidoscopy One 3 mm polyp in the rectum. Scar in the distal rectum. The examination was otherwise normal. 07/09/2023 Sigmoidoscopy Scar in the distal rectum. Examination otherwise normal. 06/20/2023 CT chest IMPRESSION: 1. Several bilateral nonspecific pulmonary nodules are again identified, stable in size and number from the prior study of 12/10/2022. 2. Mild right hilar adenopathy appears more conspicuous. Additional mildly prominent hilar and mediastinal lymph nodes elsewhere, stable. Correlation with continued follow-up examinations is recommended. 06/20/2023 CT abdomen/pelvis IMPRESSION: Stable CT examination of the abdomen. No CT evidence for metastatic disease. Incidental note is again made of cholelithiasis and bilateral nonobstructive nephrolithiasis. 04/18/2023 MRI rectum IMPRESSION: Dense scar in [...] was benign. 01/22/2023 Lower extremity Doppler [place] Extensive deep venous thrombosis of the left [...] to the thorax. 10/01/2022 MRI abdomen [place] No MRI evidence of liver lesion 09/25/2022 [...] No neoplastic hypermetabolic lesions 09/11/2022 MRI pelvis [facility] Low rectal neoplasm with suspected early invasion of the internal anal sphincter at the upper canal (MRI category T3b, N0). Few nonenlarged 2 to 3 mm mesorectal lymph nodes. No suspicious lymphadenopathy. 09/11/2022 CT chest, abdomen, pelvis ([facility]) Possible low-attenuation lesion right hepatic lobe under centimeter in size. MRI could better characterize this should be performed with IV contrast. Nodular density within the left adrenal gland which could represent metastasis or adenoma. Multiple noncalcified pulmonary nodules worrisome for metastatic disease. Largest measures approxi-1 cm in the right upper lobe. LABORATORY DATA: Hemoglobin (g/dL) Date Value 01/11/2025 11.6 08/04/2018 14.3 Hematocrit (%) Date Value 01/11/2025 36.8 08/04/2018 43.1 WBC (k/uL) Date Value 01/11/2025 6.86 08/04/2018 6.24 Platelet Count (k/uL) Date Value 01/11/2025 270 08/04/2018 216 CEA 09/05/2022 14.4 09/17/2022 15.7 10/02/2022 14.1 10/29/2022 10.5 11/19/2022 3.7 12/17/2022 1.7 01/22/2023 2.4 03/19/2023 2.0 09/05/2023 1.8 11/21/2023 1.8 08/24/2024 1.8 11/25/2023 1.4 ASSESSMENT/PLAN: 1. Rectal cancer (HCC) - ICD9: [...] 10/10/2022 was negative. It was felt the patient had localized disease, and recommendations were to proceed with neoadjuvant chemoradiation. Treatment with capecitabine 825 mg/m2 twice daily concurrent with pelvic radiation given 10/08/2022 through 11/19/2022. With treatment the patient's rectal pain and bleeding resolved. Follow-up CT scans 12/10/2022 stable with no evidence of metastatic disease. Subsequently the patient continued neoadjuvant treatment with chemotherapy consisting of FOLFOX x7 cycles 12/25/2022 through 03/21/2023. It was then elected to discontinue chemotherapy to minimize toxicity. Follow-up colonoscopy 04/09/2023 revealed no evidence of disease Rectal MRI 04/18/2023 revealed no evidence of disease. It was then elected to postpone surgery and proceed with active surveillance. Most recent full colonoscopy July 2024 stable. Most recent staging CT scans October 2024 negative for metastases. Most recent sigmoidoscopy November 2024 negative. Most recent rectal MRI December 2024 stable. Currently the patient has no evidence of disease. At this time the patient will continue with active surveillance: Exam, KHRIS, CEA and flex sig: year 0-2 every 3 months, years 3-4 every 6 months, years 5-10 yearly MRI pelvis: Years 0-4 every 6 months, years 5-[address] chest, abdomen, pelvis: Years 0-2 every 6 months, years 3-10 yearly Colonoscopy: 1 year after treatment, then every 3 years. Return in 3 months for follow-up, labs, and port flush. Next staging CT scans June 2025. Next rectal MRI June 2025. Next flex sig May 2025. Next full colonoscopy July 2027 (pending the patient's condition).. 2. Rheumatoid arthritis Diagnosed 2005. Previous treatment has included steroids, Enbrel, and methotrexate. Currently stable on low-dose steroids (prednisone 5 mg daily). Continue management per rheumatology (Dr. Treadwell) 3. Cardiomyopathy History of nonischemic cardiomyopathy. Stable on current medications. Continue management per PCP/cardiology. 4. History of [...] post anticoagulation with Eliquis x 2 years. January 2023 the patient developed acute left leg pain and swelling. Lower extremity Doppler scan 01/22/2023 revealed an extensive DVT of the left leg. Anticoagulation with Xarelto started 01/23/2023. Currently stable. Plans will be to continue anticoagulation indefinitely. 7. Perforated colon Surveillance colonoscopy 07/21/2024 revealed no abnormalities, but the procedure was complicated by perforation of the cecum. The patient underwent urgent surgery with a laparoscopic right colectomy on 07/22/2024. Postop he required multiple drain placements and prolonged IV antibiotics for intra-abdominal abscesses. MRI rectum 01/04/2025 revealed inflammatory changes within the RLQ abdominal wall suggesting a sinus tract with abscess formation. He was seen by colorectal surgery (Dr. Norman), and on the afternoon of 01/04 underwent surgery with an abscess I&D. The wound is still draining, but slowly improving. Continue management per colorectal surgery. Minerva Anderson MD documented in this encounter [facility] 01-04-2025 Note HNO ID: [id number] Author: AKI MAGAÑA APRN.FIBREGLASS GUN HAND Service: ? 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 Failed airway: no Airway not difficult SIGNATURE: Aki Magaña APRN.[employer]REGLASS GUN HAND PATIENT NAME: Mervat Grayson DATE: January 04, 2025 TIME: 2:53 PM CSN: [id number] [facility] 01-04-2025 History of Presen t illness Narrative Radiology Service Progress Note DATE OF SERVICE: January 04, 2025 TIME: 7:53 AM PATIENT IDENTITY VERIFICATION COMPLETED USING TWO (2) STANDARD IDENTIFIERS: Name and Date of confirmed by patient verbally. FALL SCREENING: Has the patient had 2 falls in the last year or 1 fall with injury or currently using an Ambulatory Assistive Device (Walker, Cane, Wheelchair, Crutches, etc.)? No PATIENT GENDER DATA: Assigned male at PATIENT RELEVANT IMPLANT DATA REVIEWED: Yes PATIENT PRESENTS WITH AN IMPLANTABLE OR ATTACHED DRAINAGE ENGINEER: No ALLERGIES: Reviewed and unchanged CONTRAST ALLERGY: NO. EXAM: MRI - CONTRAST TYPE: GROUP II PERIPHERAL IV DATA: Ambulatory: A peripheral IV was started in the Right antecubital site with a Butterfly: 23 gauge. RADIOLOGY DEPARTMENT: MR; Exam(s) Completed: Body: Rectal SIGNATURE: VICTOR MANUEL Cannon PATIENT NAME: Mervat Grayson DATE: January 04, 2025 TIME: 7:53 AM documented in this encounter [facility] 01-04-2025 Note HNO ID: [id number] Author: OPAL RUTHERFORD MRI Tech Service: Radiology Author Type: Vineyard Tender Type: Progress Notes Filed: 01/04/2025 08:15 Note Text: Radiology Service Progress Note DATE OF SERVICE: January 04, 2025 TIME: 7:53 AM PATIENT IDENTITY VERIFICATION COMPLETED USING TWO (2) STANDARD IDENTIFIERS: Name and Date of confirmed by patient verbally. FALL SCREENING: Has the patient had 2 falls in the last year or 1 fall with injury or currently using an Ambulatory Assistive Device (Walker, Cane, Wheelchair, Crutches, etc.)? No PATIENT GENDER DATA: Assigned male at PATIENT RELEVANT IMPLANT DATA REVIEWED: Yes PATIENT PRESENTS WITH AN IMPLANTABLE OR ATTACHED DRAINAGE ENGINEER: No ALLERGIES: Reviewed and unchanged CONTRAST ALLERGY: NO. EXAM: MRI - CONTRAST TYPE: GROUP II PERIPHERAL IV DATA: Ambulatory: A peripheral IV was started in the Right antecubital site with a Butterfly: 23 gauge. RADIOLOGY DEPARTMENT: MR; Exam(s) Completed: Body: Rectal SIGNATURE: VICTOR MANUEL Cannon PATIENT NAME: Mervat Grayson DATE: January 04, 2025 TIME: 7:53 AM [facility] 01-01-2025 Telephone encounter Note Summary: Appointment reminder call Appointment reminder call [facility] 01-01-2025 Miscellaneous Notes Summary: Appointment reminder call Appointment reminder call documented in this encounter [facility] 12-31-2024 Telephone encounter Note Called patient and told him/reminded him to hold his eliquis for 2 days prior to his procedure on 01/04. His last does should be Saturday. Do not take it Saturday, Saturday or Saturday. Told him to please call our office if he has any questions. [facility] 12-31-2024 Miscellaneous Notes Called patient and told him/reminded him to hold his eliquis for 2 days prior to his procedure on 01/04. His last does should be Saturday. Do not take it Saturday, Saturday or Saturday. Told him to please call our office if he has any questions. documented in this encounter [facility] 12-29-2024 Miscellaneous Notes Spoke with Dr. Norman and he is agreeable to doing PACC on admission. Called patient and explained this to patient. Patient calling regarding surgery for 01/04. He is currently out of town and will not be back until Saturday evening. [facility] called patient to set up appt and they told him to call office to clarify if PAT will be done at admission or does not need to be done at all CB# [phone] documented in this encounter [facility] 12-29-2024 Telephone encounter Note Spoke with Dr. Norman and he is agreeable to doing PACC on admission. Called patient and explained this to patient. [facility] 12-29-2024 Telephone encounter Note Patient calling regarding surgery for 01/04. He is currently out of town and will not be back until Saturday evening. [facility]ACC called patient to set up appt and they told him to call office to clarify if PAT will be done at admission or does not need to be done at all CB# [phone] [facility] 12-28-2024 Note [facility] 12-28-2024 History of Presen t illness Narrative COLORECTAL SURGERY December 28, 2024 Mervat Grayson 74 year old This consult was requested by Dr. Norman and my final recommendations will be communicated to the requesting health care provider by way of the shared medical record for internal providers or letter via the [employer] for external providers. Chief Complaint: RLQ nodular pain, CT AP with concern for fistula History of Present Illness: Mervat Grayson is a 74 year old male with a history of colon perforation following a colonoscopy on 07/21/2025 s/p a Laparoscopic Right Colectomy, Umbilical Hernia Repair on 07/22-12/[address] Norman. He noticed RLQ nodule 6 weeks ago, slowly increasing in size 2 weeks ago and becoming more tender. Went to PCP who ordered an US, initially concern for SB containing hernia (hx of RLQ groin/inguinal hernia fixed with mesh) RLQ nodule continued to increased in size and become more painful, Dr. Anderson ordered CT AP. CT with concern for fistulous tract/abscess arising from the staple line of the right colon. No fevers chills nausea vomiting bowels functioning normally. Pain managed with OTC meds but it is becoming increasingly more uncomfortable and he is avoiding certain activities to prevent exacerbation. 40lb weight loss since surgery. US abdomen 12/17/2024 1. Cholelithiasis. 2. Mild bilateral hydronephrosis. 3. Small bowel containing hernia in the right lower quadrant. CT AP 12/24/2024 IMPRESSION: 1. Persistent inflammatory changes along the surgical staple line in the right colon. New enhancing tract extending from this area of inflammatory change through the abdominal wall into the subcutaneous soft tissues suspicious for a fistulous abscess. Trace fluid is noted within the fistulous abscess and it is uncertain if it is drainable. Superimposed neoplasm cannot be excluded. 2. Cholelithiasis. 3. Trace abdominal ascites, decreased. 4. Nonobstructing bilateral renal stones. PAST MEDICAL HISTORY Diagnosis Date Acute low back pain with possible spinal stenosis of less than six weeks' duration Adenocarcinoma of rectum (HCC) Arthritis Bilateral renal cysts peripelvic BPH with urinary obstruction Cholelithiasis History of kidney stones Non-ischemic cardiomyopathy (HCC) Perforation bowel (HCC) 07/29/2024 Pulmonary emboli (HCC) 2020 left lower lobe RA (rheumatoid arthritis) (HCC) PAST SURGICAL HISTORY Procedure Laterality Date COLONOSCOPY HAMMERTOE REVISION, ONE TOE HEMORRHOID SURGERY HX HERNIA REPAIR HX LITHOTRIPSY PROC UNILATERAL REMV CATARACT EXTRACAP,INSERT LENS Current Outpatient Medications Medication Sig Dispense Refill oxyCODONE-acetaminophen (PERCOCET) 5-325 mg tablet Take 1 tablet by mouth every 6 hours as needed for up to 28 days. 50 tablet 0 zolpidem (AMBIEN) 5 mg tablet Take 1 tablet by mouth at bedtime as needed for up to 30 days. 30 tablet 1 XARELTO 20 mg tablet TAKE ONE TABLET BY MOUTH DAILY WITH DINNER 90 tablet 2 calcium carbonate (CALCIUM 600 ORAL) Take 1 tablet by mouth once daily. glucosamine/chondr perez A sod (GLUCOSAMINE-CHONDROITIN) 1,500-1,200 mg/30 mL liqd Take by mouth once daily. predniSONE (DELTASONE) 5 mg tablet Take 5 mg by mouth once daily. valsartan (DIOVAN) 80 mg tablet Take 80 mg by mouth once daily. carvedilol (COREG) 6.25 mg tablet Take 6.25 mg by mouth twice daily with meals. tamsulosin ER (FLOMAX) 0.4 mg cap Take [...] Never Smokeless tobacco: Never Vaping Use Vaping status: Never Used Substance Use Topics Alcohol use: Yes Comment: rarely Drug use: No Physical Exam: BP 181/84 (BP Position: Sitting) Pulse 75 Temp 36.6 C (97.9 F) (pt reports he has not taken his BP medication yet today) 40lb weight loss* since surgery General Appearance: Well appearing, alert, in no acute distress, well-hydrated, well nourished. Abdomen: soft, non-distended, incisions healed. RLQ nodule appreciated subdermally, tender with exam, approximately the size of ping pong ball, linear tender nodularity from RLQ towards suprapubic region. No erythema edema induration. Also evaluated by Dr. Norman. Assessment Assessment and Plan: Mervat Grayson is a 74 year old male history of colon perforation following a colonoscopy on 07/21/2025 s/p a Laparoscopic Right Colectomy, Umbilical Hernia Repair on 07/22-12/[address] with [address] imaging concerning for fistulous abscess tract from right colon anastomotic staple line to the skin surface. The abscess is not amenable to bedside drainage today. Plan to open and I&D the RLQ abscess/fistulous tract in the OR on 01/[address] Norman. No need for antibiotics in the interim as he is not systemically ill and only symptom is pain. Medical Decision Making: Data Reviewed: Tests & Documents Reviewed/ordered: Review of prior notes from hospitalization Review of prior operative reports Review of Pathology I have independently interpreted: CT AP 12/24/2024 I have discussed Mervat Grayson's treatment plan and/or results with the patient, Dr. Norman. Risk of morbidity, mortality and/or complications of treatment plan: mike Andrews APRN.CNP Colorectal Surgery documented in this encounter [facility] 12-25-2024 Telephone encounter Note He sounded like he would be willing to come in Thursday 12/28 as long as it was early. [facility] 12-25-2024 Miscellaneous Notes He sounded like he would be willing to come in Thursday 12/28 as long as it was early. Spoke with patient. He reports there is an area above his right hip that is about 2 x 1 and is bulging out. It is very sore to the touch and sore when he bends or moves. He reports he is eating ok and is having normal bowel movements. His PCP prescribed him oxycodone and zolpidem for pain and sleeping. Patient calling asking to discuss CT and Us results. He is concerned about a perforation CB# [phone] documented in this encounter [facility] 12-25-2024 Telephone encounter Note Spoke with patient. He reports there is an area above his right hip that is about 2 x 1 and is bulging out. It is very sore to the touch and sore when he bends or moves. He reports he is eating ok and is having normal bowel movements. His PCP prescribed him oxycodone and zolpidem for pain and sleeping. [facility] 12-25-2024 Telephone encounter Note Patient calling asking to discuss CT and Us results. He is concerned about a perforation CB# [phone] [facility] 12-25-2024 Telephone encounter Note Pt notified and reports that his abdominal pain seems to be more pronounced. Pt plans to contact Dr Norman's office today. Dr Norman: CHAN... Denisha Duarte RN [facility] Work Phone: 12-25-2024 Miscellaneous Notes Pt notified and reports that his abdominal pain seems to be more pronounced. Pt plans to contact Dr Norman's office today. Dr Norman: CHAN... Denisha Duarte RN documented in this encounter [facility] 12-24-2024 History of Presen t illness Narrative Radiology Service Progress Note PATIENT NAME: Mervat Grayson DATE OF SERVICE: December 24, 2024 TIME: 10:36 AM PATIENT IDENTITY VERIFICATION COMPLETED USING TWO (2) IDENTIFIERS: Name and Date of confirmed by patient verbally. FALL SCREENING: Has the patient had 2 falls in the last year or 1 fall with injury or currently using an Ambulatory Assistive Device (Walker, Cane, Wheelchair, Crutches, etc.)? No PATIENT GENDER DATA: Assigned male at PATIENT RELEVANT IMPLANT DATA REVIEWED: Not Applicable PATIENT PRESENTS WITH AN IMPLANTABLE OR ATTACHED DRAINAGE ENGINEER: No RADIOLOGY DEPARTMENT: CT; Exam(s) Completed: Chest Abdomen Pelvis PERIPHERAL IV DATA: Not applicable SIGNED BY: RT Johny(R) December 24, 2024 10:36 AM POWER port scanned 12/20/2022 Radiology Service Progress Note DATE OF SERVICE: December 24, 2024 TIME: 11:15 AM PATIENT WEIGHT: 220LBS PATIENT IDENTITY VERIFICATION COMPLETED USING TWO (2) STANDARD IDENTIFIERS: Name and Date of confirmed by patient verbally. FALL SCREENING: Has the patient had 2 falls in the last year or 1 fall with injury or currently using an Ambulatory Assistive Device (Walker, Cane, Wheelchair, Crutches, etc.)? No PATIENT GENDER DATA: Assigned male at ALLERGIES: Reviewed and unchanged CONTRAST ALLERGY: No EXAM: CT -CONTRAST INDUCED NEPHROPATHY RISK FACTORS: Patient age > 60 years CREATININE: Creatinine Date Value Ref Range Status 12/24/2024 1.03 0.73 - 1.22 mg/dL Final 12/07/2024 1.04 0.73 - 1.22 mg/dL Final 11/25/2024 1.01 0.73 - 1.22 mg/dL Final Estimated Glomerular Filtration Rate Date Value Ref Range Status 12/24/2024 77 >=60 mL/min/1.73m Final Comment: Estimated Glomerular Filtration Rate (eGFR) is calculated using the 2020 CKD-EPI creatinine equation. This equation utilizes serum creatinine, sex, and age as parameters. The creatinine assay has traceable calibration to isotope dilution-mass spectrometry. Refer to KDIGO guidelines for clinical interpretation. In patients with unstable renal function, e.g. those with acute kidney injury, the eGFR may not accurately reflect actual GFR. eGFR- Date Value Ref Range Status 08/04/2018 >60 Final P.O.C.T. RESULTS: POC done: Yes, See Lab Tab December 24, 2024 TREATMENT: N/A IV SITE: Ambulatory: A power injectable Mediport was accessed in the Right chest with a .75 inch 20 gauge needle. Blood Return, Flushed easily with normal saline, and No Complications Port flushed with 20cc NS post scan via pump without difficulty Port needle removed IV SITE APPEARANCE: Clean,Dry and Intact SIGNATURE: Laura Slaughter RN PATIENT NAME: Mervat Grayson DATE: December 24, 2024 TIME: 11:15 AM documented in this encounter [facility] 12-24-2024 Note [facility] 12-24-2024 Note [facility] 12-24-2024 Telephone encounter Note Please sign pended labs for f/u on 01/11-will draw with CT today Thank You! Laura Slaughter RN [facility] 12-24-2024 Miscellaneous Notes Please sign pended labs for f/u on 01/11-will draw with CT today Thank You! Laura Slaughter RN documented in this encounter [facility] 12-06-2024 Note [facility] 12-06-2024 History of Presen t illness Narrative PATIENT NAME: Mervat Grayson DATE: 12/07/2024 PRIMARY CARE PHYSICIAN: Dr. Lorenzo Marin OTHER PHYSICIANS: Dr. Mervat Slaughter, Dr. Thalia Troy, Dr. Kiko Treadwell, Dr. Key, Dr. Micha Mccabe, Dr. Shaheed Norman, Dr. JARROD Goncalves ([facility] ID) Portions of this encounter note have been copied from the note from 11/10/2024 and has been updated where appropriate, and reflect my current medical decision making from today. CC: This is a 74 year old male with localized rectal cancer, seen for scheduled follow-up. INTERIM HISTORY: The patient was last seen on 11/10/2024 on an urgent basis for evaluation of right lower quadrant abdominal pain and swelling. Stat CT abdomen/pelvis revealed persistent inflammatory changes along the surgical staple line in the right colon, but no acute changes. He was seen by [facility] colorectal surgery (Dr. Norman) and on 11/24/2024 underwent sigmoidoscopy. He was found to have scar tissue in the rectum, otherwise no abnormalities. Since then he has had no significant medical changes, but still has fairly significant pain over his right lower quadrant. The pain is severe enough to cause troubles sleeping. He denies any nausea or vomiting. Appetite is fair and weight is stable. His bowel movements are formed. No recent fevers or signs of infection. MEDICATIONS: Current Outpatient Medications Medication Sig XARELTO 20 mg tablet TAKE ONE TABLET BY MOUTH DAILY WITH DINNER calcium carbonate (CALCIUM 600 ORAL) Take 1 tablet by mouth once daily. glucosamine/chondr perez A sod (GLUCOSAMINE-CHONDROITIN) 1,500-1,200 mg/30 mL liqd Take by mouth once daily. predniSONE (DELTASONE) 5 mg tablet Take 5 mg by mouth once daily. valsartan (DIOVAN) 80 mg tablet Take 80 mg by mouth once daily. carvedilol (COREG) 6.25 mg tablet Take 6.25 mg by mouth twice daily with meals. tamsulosin ER (FLOMAX) 0.4 mg cap Take 0.4 mg by mouth twice daily. Ascorbic Acid 100 mg tablet Take 100 mg by mouth twice daily. iv contrast (will be provided with [...] Contrast as designated per enteric contrast guidelines iv contrast (will be provided with radiology test) CT Chest ABD/PEL-Inject, intravenously, [...] in the CT contrast administration guidelines link. enteric contrast (will be provided with radiology test) For CT CHESTABD/PEL W IVCON Routine order Administer, As Directed One Time Only, via Oral, Rectal, both Oral and Rectal, Enteric Tube, Stoma or Indwelling Catheter, Enteric Contrast as designated per enteric contrast guidelines oxyCODONE-acetaminophen (PERCOCET) 5-325 mg tablet Take 1 tablet by mouth every 6 hours as needed for up to 28 days. zolpidem (AMBIEN) 5 mg tablet Take 1 tablet by mouth at bedtime as needed for up to 30 days. No current facility-administered medications for this visit. ALLERGIES: ALLERGIES No Known Allergies PAST MEDICAL HISTORY: PAST MEDICAL HISTORY Diagnosis Date Acute low back pain with possible spinal stenosis of less than six weeks' duration Adenocarcinoma of rectum (HCC) Arthritis Bilateral renal cysts peripelvic BPH with urinary obstruction Cholelithiasis History of kidney stones Non-ischemic cardiomyopathy (HCC) Perforation bowel (HCC) 07/29/2024 Pulmonary emboli (HCC) 2019 left lower lobe [...] Never Smokeless tobacco: Never Vaping Use Vaping status: Never Used Substance Use Topics Alcohol use: Yes Comment: [...] paralysis, seizures or tremors PHYSICAL EXAM: BP 148/84 Pulse 75 Temp 36.6 C (97.9 F) (Temporal) Resp 18 Wt 100.1 kg (220 lb 10.9 oz) SpO2 97% BMI 28.33 kg/m ECOG 0 General: Alert and oriented, no distress, pleasant and cooperative. Heart: Regular, normal S1 and S2, no murmurs, rubs, or gallops Lungs: Clear to auscultation bilaterally Abdomen: palpable mass in the RLQ about 2-3 cm x 1 cm. Tender on lateral aspect of mass. No protrusion with valsalva Extremities: Feet/ankles without edema, posterior tibial pulses full and symmetrical PATHOLOGY: 07/23/2024 Right hemicoloctomy A. Soft tissue, umbilical region, excision: - Benign fibroadipose and fibromembranous tissue with acute inflammation, consistent with hernia sac. B. Right colon, terminal ileum, and appendix, right hemicolectomy: - Dilated colon with transmural suppurative inflammation and necrosis, consistent with ischemic bowel injury. - Appendix with fibrolipomatous obliteration and acute serositis. - Small bowel with acute serositis. - Benign lymph nodes. 04/09/2023 Anal canal, polyp, biopsy: Squamous mucosa polyp. 08/20/2022 [place] Adenocarcinoma of colon (mass at anal verge) Mismatch repair gene -normal expression RADIOLOGY/OTHER STUDIES: 11/24/2024 Sigmoidoscopy (Dr. Norman) Scar tissue in rectum, otherwise no abnormalities. 11/10/2024 CT abdomen/pelvis IMPRESSION: 1. Persistent inflammatory changes along the surgical staple line in the right colon status post drainage catheter removal. No evidence of a drainable fluid collection. 2. Cholelithiasis. 3. Trace abdominal ascites, increased. 4. Nonobstructing bilateral renal stones. 5. Otherwise no evidence of intra-abdominal/pelvic metastases. 08/25/2024 CT abdomen/pelvis IMPRESSION: 1. No CT evidence of recurrent or metastatic disease in the abdomen or pelvis. 2. Significant improvement of the multiple fluid collections previously seen within the abdomen or pelvis, with bilateral percutaneous drains remaining in place. The respective fluid collection cavities are now collapsed around either pigtail. 3. Persistent rim-enhancing pelvic fluid collection. Though decreased in size, measuring 3.0 x 2.2 cm (previously 4.0 x 2.6 cm), this finding remains concerning for abscess 3.0 x 2.2 cm (previously 4.0 x 2.6 cm). 4. Another lobulated 3.8 x 2.1 cm (previously 4.3 x 2.1 cm) fluid collection adjacent to the bowel anastomosis persists. Given the lack of convincing peripheral enhancement, this may reflect a postoperative seroma. However, sterility cannot be confirmed at CT imaging. 5. Additional incidental findings as above. 08/13/2024 CT abdomen/pelvis IMPRESSION: Postsurgical changes of right hemicolectomy with 3 fluid collections in the pelvis with enhancing dos santos, suspicious for abscesses. The right lower quadrant 1 is located immediately adjacent to the ileocolonic anastomosis and contains foci of air, suspicious for leak 07/21/2024 Screening colonoscopy Impression: Scar in the distal rectum. The examination was otherwise normal on direct and retroflexion views. No specimens collected. 06/04/2024 MRI rectum IMPRESSION: DENSE SCAR INVOLVING THE LOW RECTAL WALL / ANAL CANAL, UNCHANGED FROM PRIORS. NO RESIDUAL VIABLE TUMOR. NO LYMPHADENOPATHY. Since 04/18/2023, post treatment primary tumor assessment: Complete/near complete response. -Free text summary of relevant findings/interval change. mrTRG: Grade 2 - Good response Suspicious Mesorectal lymph nodes: No. Suspicious Extramesorectal lymph nodes: No. 02/25/2024 Sigmoidoscopy (Dr. Norman) Scar in the distal rectum. The examination was otherwise normal. 12/20/2023 CT chest IMPRESSION: 1. Stable nonspecific subcentimeter pulmonary nodules as described above. There are also stable small nonspecific mediastinal lymph nodes and right hilar lymph node. Would advise continued close attention on follow-up/surveillance scans. 12/20/2023 CT abdomen/pelvis IMPRESSION: 1. No evidence of metastatic disease in the abdomen or pelvis. 12/03/2023 MRI rectum IMPRESSION: DENSE SCAR INVOLVING THE LOW RECTAL WALL / ANAL CANAL, UNCHANGED FROM PRIOR. NO RESIDUAL VIABLE TUMOR. NO LYMPHADENOPATHY. 11/05/2023 Sigmoidoscopy One 3 mm polyp in the rectum. Scar in the distal rectum. The examination was otherwise normal. 07/09/2023 Sigmoidoscopy Scar in the distal rectum. Examination otherwise normal. 06/20/2023 CT chest IMPRESSION: 1. Several bilateral nonspecific pulmonary nodules are again identified, stable in size and number from the prior study of 12/10/2022. 2. Mild right hilar adenopathy appears more conspicuous. Additional mildly prominent hilar and mediastinal lymph nodes elsewhere, stable. Correlation with continued follow-up examinations is recommended. 06/20/2023 CT abdomen/pelvis IMPRESSION: Stable CT examination of the abdomen. No CT evidence for metastatic disease. Incidental note is again made of cholelithiasis and bilateral nonobstructive nephrolithiasis. 04/18/2023 MRI rectum IMPRESSION: Dense scar in [...] polyp was benign. 01/22/2023 Lower extremity Doppler ([facility]) Extensive deep venous thrombosis of the left [...] to the thorax. 10/01/2022 [place] No MRI evidence of liver lesion 09/25/2022 [...] No neoplastic hypermetabolic lesions 09/11/2022 MRI pelvis [place] Low rectal neoplasm with suspected early invasion of the internal anal sphincter at the upper canal (MRI category T3b, N0). Few nonenlarged 2 to 3 mm mesorectal lymph nodes. No suspicious lymphadenopathy. 09/11/2022 CT chest, abdomen, pelvis ([facility]) Possible low-attenuation lesion right hepatic lobe under centimeter in size. MRI could better characterize this should be performed with IV contrast. Nodular density within the left adrenal gland which could represent metastasis or adenoma. Multiple noncalcified pulmonary nodules worrisome for metastatic disease. Largest measures approxi-1 cm in the right upper lobe. LABORATORY DATA: Hemoglobin (g/dL) Date Value 12/07/2024 11.1 08/04/2018 14.3 Hematocrit (%) Date Value 12/07/2024 34.7 08/04/2018 43.1 WBC (k/uL) Date Value 12/07/2024 8.16 08/04/2018 6.24 Platelet Count (k/uL) Date Value 12/07/2024 345 08/04/2018 216 CEA 09/05/2022 14.4 09/17/2022 15.7 10/02/2022 14.1 10/29/2022 10.5 11/19/2022 3.7 12/17/2022 1.7 01/22/2023 2.4 03/19/2023 2.0 09/05/2023 1.8 11/21/2023 1.8 08/24/2024 1.8 11/25/2023 1.4 ASSESSMENT/PLAN: 1. Rectal cancer (HCC) - ICD9: [...] 10/10/2022 was negative. It was felt the patient had localized disease, and recommendations were to proceed with neoadjuvant chemoradiation. Treatment with capecitabine 825 mg/m2 twice daily concurrent with pelvic radiation given 10/08/2022 through 11/19/2022. With treatment the patient's rectal pain and bleeding resolved. Follow-up CT scans 12/10/2022 stable with no evidence of metastatic disease. Subsequently the patient continued neoadjuvant treatment with chemotherapy consisting of FOLFOX x7 cycles 12/25/2022 through 03/21/2023. It was then elected to discontinue chemotherapy to minimize toxicity. Follow-up colonoscopy 04/09/2023 revealed no evidence of disease Rectal MRI 04/18/2023 revealed no evidence of disease. It was then elected to postpone surgery and proceed with active surveillance. Staging CT scans December 2023 stable. Most recent rectal MRI May 2024 stable. Most recent full colonoscopy July 2024 stable. Most recent sigmoidoscopy November 2024 negative. Currently the patient has no evidence of disease. At this time the patient will continue with active surveillance: Exam, KHRIS, CEA and flex sig: year 0-2 every 3 months, years 3-4 every 6 months, years 5-10 yearly MRI pelvis: Years 0-4 every 6 months, years 5-[address] chest, abdomen, pelvis: Years 0-2 every 6 months, years 3-10 yearly Colonoscopy: 1 year after treatment, then every 3 years. Next rectal MRI November 2024. Next restaging CT scans December 2024. Next flex sig May 2025. Next full colonoscopy July 2027 (pending the patient's condition). Return in 4 weeks for follow-up. 2. Rheumatoid arthritis Diagnosed 2005. Previous treatment has included steroids, Enbrel, and methotrexate. Currently stable on low-dose steroids (prednisone 5 mg daily). Continue management per rheumatology (Dr. Treadwell) 3. Cardiomyopathy History of nonischemic cardiomyopathy. Stable on current medications. Continue management per PCP/cardiology. 4. History of [...] post anticoagulation with Eliquis x 2 years. January 2023 the patient developed acute left leg pain and swelling. Lower extremity Doppler scan 01/22/2023 revealed an extensive DVT of the left leg. Anticoagulation with Xarelto started 01/23/2023. Currently stable. Plans will be to continue anticoagulation indefinitely. 7. Perforated colon Surveillance colonoscopy 07/21/2024 revealed no abnormalities, but the procedure was complicated by perforation of the cecum. The patient underwent urgent surgery with a laparoscopic right colectomy on 07/22/2024. Postop he required multiple drain placements and prolonged IV antibiotics for intra-abdominal abscesses. Clinically stable at this time. However, he has ongoing pain over his right lower quadrant which has caused trouble sleeping. Options were discussed at length (more than 30 minutes). Will give a trial of Percocet to take for pain and Ambien to take for sleep. Would consider palliative medicine referral if symptoms persist. Minerva Anderson MD documented in this encounter [facility] 11-24-2024 History and physical note ENDOSCOPY HISTORY AND PHYSICAL EXAM Mervat Dumont Nelson [id number] Subjective HPI: This is a 74 year old male who presents for endoscopy. PAST ANESTHESIA HISTORY: No history of adverse event PAST MEDICAL HISTORY Diagnosis Date Acute low back pain with possible spinal stenosis of less than six weeks' duration Adenocarcinoma of rectum (HCC) Arthritis Bilateral renal cysts peripelvic BPH with urinary obstruction Cholelithiasis History of kidney stones Non-ischemic cardiomyopathy (HCC) Perforation bowel (HCC) 07/29/2024 Pulmonary emboli (HCC) 2020 left lower lobe RA (rheumatoid arthritis) (HCC) PAST SURGICAL HISTORY Procedure Laterality Date COLONOSCOPY HAMMERTOE REVISION, ONE TOE HEMORRHOID SURGERY HX HERNIA REPAIR HX LITHOTRIPSY PROC UNILATERAL REMV CATARACT EXTRACAP,INSERT LENS Prior to Admission medications as of 11/24/24 1120 Medication Sig Last Dose Taking valsartan (DIOVAN) 80 mg tablet Take 80 mg by mouth once daily. 11/24/2024 Yes carvedilol (COREG) 6.25 mg tablet Take 6.25 mg by mouth twice daily with meals. 11/24/2024 Yes XARELTO 20 mg tablet TAKE ONE TABLET BY MOUTH DAILY WITH DINNER 11/22/2024 sodium chloride 0.9 %, flush, (NORMAL SALINE FLUSH) syringe Inject 10 mL intravenously every 12 hours. Flush each IR drain with 10mL normal saline every 12 hours. Unknown calcium carbonate (CALCIUM 600 ORAL) Take 1 tablet by mouth once daily. 11/22/2024 glucosamine/chondr perez A sod (GLUCOSAMINE-CHONDROITIN) 1,500-1,200 mg/30 mL liqd Take by mouth once daily. 11/22/2024 predniSONE (DELTASONE) 5 mg tablet Take 5 mg by mouth once daily. 11/22/2024 tamsulosin ER (FLOMAX) 0.4 mg cap Take 0.4 mg by mouth twice daily. 11/22/2024 Ascorbic Acid 100 mg tablet Take 100 mg by mouth twice daily. 11/22/2024 ALLERGIES No Known Allergies Objective PHYSICAL EXAM: The remainder of the physical exam is noncontributory. AIRWAY: LUNGS: Lungs clear to auscultation CARDIAC: Regular rhythm,Regular rate Assessment/Plan ASA Class: ASA Class: Patient with severe systemic disease Active Problems: * No active hospital problems. * Resolved Problems: * No resolved hospital problems. * Medication and Non-Pharmacologic VTE Prophylaxis/Anticoagulants VTE Prophylaxis: not indicated for procedure Provisional Diagnosis/Treatment Plan: sigmoidoscopy under MAC sedation Consent has been signed Sedation Goal: Moderate Minerva Artis MD 11/24/2024 11:51 AM Associated attestation - Deborah Norman MD - 11/24/2024 11:53 AM EST Attending Note I evaluated the patient and personally participated in the tripp components. I agree with the resident's findings and plan as documented and have discussed the case and management of the patient's care with the resident. Signature: Deborah Norman MD Date: 11/24/2024 Time: 11:53 AM [facility] Work Phone: 11-24-2024 History and physical note ENDOSCOPY HISTORY AND PHYSICAL EXAM Mervat Grayson [id number] Subjective HPI: This is a 74 year old male who presents for endoscopy. PAST ANESTHESIA HISTORY: No history of adverse event PAST MEDICAL HISTORY Diagnosis Date Acute low back pain with possible spinal stenosis of less than six weeks' duration Adenocarcinoma of rectum (HCC) Arthritis Bilateral renal cysts peripelvic BPH with urinary obstruction Cholelithiasis History of kidney stones Non-ischemic cardiomyopathy (HCC) Perforation bowel (HCC) 07/29/2024 Pulmonary emboli (HCC) 2020 left lower lobe RA (rheumatoid arthritis) (HCC) PAST SURGICAL HISTORY Procedure Laterality Date COLONOSCOPY HAMMERTOE REVISION, ONE TOE HEMORRHOID SURGERY HX HERNIA REPAIR HX LITHOTRIPSY PROC UNILATERAL REMV CATARACT EXTRACAP,INSERT LENS Prior to Admission medications as of 11/24/24 1120 Medication Sig Last Dose Taking valsartan (DIOVAN) 80 mg tablet Take 80 mg by mouth once daily. 11/24/2024 Yes carvedilol (COREG) 6.25 mg tablet Take 6.25 mg by mouth twice daily with meals. 11/24/2024 Yes XARELTO 20 mg tablet TAKE ONE TABLET BY MOUTH DAILY WITH DINNER 11/22/2024 sodium chloride 0.9 %, flush, (NORMAL SALINE FLUSH) syringe Inject 10 mL intravenously every 12 hours. Flush each IR drain with 10mL normal saline every 12 hours. Unknown calcium carbonate (CALCIUM 600 ORAL) Take 1 tablet by mouth once daily. 11/22/2024 glucosamine/chondr perez A sod (GLUCOSAMINE-CHONDROITIN) 1,500-1,200 mg/30 mL liqd Take by mouth once daily. 11/22/2024 predniSONE (DELTASONE) 5 mg tablet Take 5 mg by mouth once daily. 11/22/2024 tamsulosin ER (FLOMAX) 0.4 mg cap Take 0.4 mg by mouth twice daily. 11/22/2024 Ascorbic Acid 100 mg tablet Take 100 mg by mouth twice daily. 11/22/2024 ALLERGIES No Known Allergies Objective PHYSICAL EXAM: The remainder of the physical exam is noncontributory. AIRWAY: LUNGS: Lungs clear to auscultation CARDIAC: Regular rhythm,Regular rate Assessment/Plan ASA Class: ASA Class: Patient with severe systemic disease Active Problems: * No active hospital problems. * Resolved Problems: * No resolved hospital problems. * Medication and Non-Pharmacologic VTE Prophylaxis/Anticoagulants VTE Prophylaxis: not indicated for procedure Provisional Diagnosis/Treatment Plan: sigmoidoscopy under MAC sedation Consent has been signed Sedation Goal: Moderate Minerva Artis MD 11/24/2024 11:51 AM Associated attestation - Deborah Norman MD - 11/24/2024 11:53 AM EST Attending Note I evaluated the patient and personally participated in the tripp components. I agree with the resident's findings and plan as documented and have discussed the case and management of the patient's care with the resident. Signature: Deborah Norman MD Date: 11/24/2024 Time: 11:53 AM documented in this encounter [facility] 11-10-2024 Telephone encounter Note Pt aware of CT results and MM message below. Pt reports appt with Dr Norman 11/24/24 for a sigmoidoscopy. Pt denies further questions or needs at this time for our care providers Dr Norman: CHAN Thank you, Minal Corey, ALEXUS [facility] 11-10-2024 Miscellaneous Notes Pt aware of CT results and MM message below. Pt reports appt with Dr Norman 11/24/24 for a sigmoidoscopy. Pt denies further questions or needs at this time for our care providers Dr Norman: CHAN Thank you, Minal Corey RN ----- Message from Kari Diaz PA-C sent at 11/10/2024 3:41 PM EST ----- Please call with results. No evidence of hernia, mass, abscess in the RLQ. Just inflammatory changes along the surgical staple line in right colon. He should follow up with Dr. Norman. Maybe scar tissue related? Colonoscopy may also be of help documented in this encounter [facility] 11-10-2024 Telephone encounter Note ----- Message from Kari Diaz PA-C sent at 11/10/2024 3:41 PM EST ----- Please call with results. No evidence of hernia, mass, abscess in the RLQ. Just inflammatory changes along the surgical staple line in right colon. He should follow up with Dr. Norman. Maybe scar tissue related? Colonoscopy may also be of help [facility] 11-10-2024 History of Presen t illness Narrative PATIENT NAME: Mervat Grayson DATE: 11/10/2024 PRIMARY CARE PHYSICIAN: Dr. Lorenzo Marin OTHER PHYSICIANS: Dr. Mervat Slaughter, Dr. Thalia Troy, Dr. Kiko Treadwell, Dr. Key, Dr. Micha Mccabe, Dr. Shaheed Norman, Dr. JARROD Goncalves ([facility] ID) Portions of this encounter note have been copied from the note from 09/08/2024 and has been updated where appropriate, and reflect my current medical decision making from today. CC: This is a 74 year old male with localized rectal cancer, seen for scheduled follow-up. INTERIM HISTORY: Patient is here for follow up for an area in his right lower abdomen that is swollen and increased in size over the last 2 weeks. He did have diarrhea between and , however that subsided and his bowels are moving fine now. The area in the right lower quadrant is painful and is making sleeping difficult. It is especially tender over the crest of his pelvic bone. He denies any fevers, chills, nausea or vomiting. He does have the history of abscesses in August 2024 following a complication of a cecum perforation after a surveillance colonoscopy. He required urgent surgery with a laparoscopic right colectomy on 07/22/2024. He required multiple drain placements at the time, but that all cleared up as of September 2024. MEDICATIONS: Current Outpatient Medications Medication Sig XARELTO 20 mg tablet TAKE ONE TABLET BY MOUTH DAILY WITH DINNER sodium chloride 0.9 %, flush, (NORMAL SALINE FLUSH) syringe Inject 10 mL intravenously every 12 hours. Flush each IR drain with 10mL normal saline every 12 hours. calcium carbonate (CALCIUM 600 ORAL) Take 1 tablet by mouth once daily. glucosamine/chondr perez A sod (GLUCOSAMINE-CHONDROITIN) 1,500-1,200 mg/30 mL liqd Take by mouth once daily. predniSONE (DELTASONE) 5 mg tablet Take 5 mg by mouth once daily. valsartan (DIOVAN) 80 mg tablet Take 80 mg by mouth once daily. carvedilol (COREG) 6.25 mg tablet Take 6.25 mg by mouth twice daily with meals. tamsulosin ER (FLOMAX) 0.4 mg cap Take 0.4 mg by mouth twice daily. Ascorbic Acid 100 mg tablet Take 100 mg by mouth twice daily. iv contrast (will be provided with radiology test) CT ABD W -Inject, intravenously, once for 1 dose.No IV access, [...] in the CT contrast administration guidelines link. enteric contrast (will be provided with radiology test) For CT ABD W IVCON order Administer, As Directed One Time Only, via Oral, Rectal, both Oral and Rectal, Enteric Tube, Stoma or Indwelling Catheter, Enteric Contrast as designated per enteric contrast guidelines iv contrast (will be provided with radiology test) CT PELVIS W -Inject, intravenously, once for 1 dose.No IV access, [...] in the CT contrast administration guidelines link. enteric contrast (will be provided with radiology test) For CT PELVIS W IVCON order Administer, As Directed One Time Only, via Oral, Rectal, both Oral and Rectal, Enteric Tube, Stoma or Indwelling Catheter, Enteric Contrast as designated per enteric contrast guidelines No current facility-administered medications for this visit. ALLERGIES: ALLERGIES No Known Allergies PAST MEDICAL HISTORY: PAST MEDICAL HISTORY Diagnosis Date Acute low back pain with possible spinal stenosis of less than six weeks' duration Adenocarcinoma of rectum (HCC) Arthritis Bilateral renal cysts peripelvic BPH with urinary obstruction Cholelithiasis History of kidney stones Non-ischemic cardiomyopathy (HCC) Perforation bowel (HCC) 07/29/2024 Pulmonary emboli (HCC) 2020 left lower lobe [...] Never Smokeless tobacco: Never Vaping Use Vaping status: Never Used Substance Use Topics Alcohol use: Yes Comment: [...] paralysis, seizures or tremors PHYSICAL EXAM: BP 120/72 Pulse 70 Temp 36.6 C (97.9 F) (Temporal) Resp 18 Ht 188 cm (6' 2.02 ) Wt 100.5 kg (221 lb 9 oz) SpO2 96% BMI 28.43 kg/m ECOG 0 General: Alert and oriented, no distress, pleasant and cooperative. Heart: Regular, normal S1 and S2, no murmurs, rubs, or gallops Lungs: Clear to auscultation bilaterally Abdomen: palpable mass in the RLQ about 2-3 cm x 1 cm. Tender on lateral aspect of mass. No protrusion with valsalva Extremities: Feet/ankles without edema, posterior tibial pulses full and symmetrical PATHOLOGY: 07/23/2024 Right hemicoloctomy A. Soft tissue, umbilical region, excision: - Benign fibroadipose and fibromembranous tissue with acute inflammation, consistent with hernia sac. B. Right colon, terminal ileum, and appendix, right hemicolectomy: - Dilated colon with transmural suppurative inflammation and necrosis, consistent with ischemic bowel injury. - Appendix with fibrolipomatous obliteration and acute serositis. - Small bowel with acute serositis. - Benign lymph nodes. 04/09/2023 Anal canal, polyp, biopsy: Squamous mucosa polyp. 08/20/2022 [place] Adenocarcinoma of colon (mass at anal verge) Mismatch repair gene -normal expression RADIOLOGY/OTHER STUDIES: 08/25/2024 CT abdomen/pelvis IMPRESSION: 1. No CT evidence of recurrent or metastatic disease in the abdomen or pelvis. 2. Significant improvement of the multiple fluid collections previously seen within the abdomen or pelvis, with bilateral percutaneous drains remaining in place. The respective fluid collection cavities are now collapsed around either pigtail. 3. Persistent rim-enhancing pelvic fluid collection. Though decreased in size, measuring 3.0 x 2.2 cm (previously 4.0 x 2.6 cm), this finding remains concerning for abscess 3.0 x 2.2 cm (previously 4.0 x 2.6 cm). 4. Another lobulated 3.8 x 2.1 cm (previously 4.3 x 2.1 cm) fluid collection adjacent to the bowel anastomosis persists. Given the lack of convincing peripheral enhancement, this may reflect a postoperative seroma. However, sterility cannot be confirmed at CT imaging. 5. Additional incidental findings as above. 08/13/2024 CT abdomen/pelvis IMPRESSION: Postsurgical changes of right hemicolectomy with 3 fluid collections in the pelvis with enhancing dos santos, suspicious for abscesses. The right lower quadrant 1 is located immediately adjacent to the ileocolonic anastomosis and contains foci of air, suspicious for leak 07/21/2024 Screening colonoscopy Impression: Scar in the distal rectum. The examination was otherwise normal on direct and retroflexion views. No specimens collected. 06/04/2024 MRI rectum IMPRESSION: DENSE SCAR INVOLVING THE LOW RECTAL WALL / ANAL CANAL, UNCHANGED FROM PRIORS. NO RESIDUAL VIABLE TUMOR. NO LYMPHADENOPATHY. Since 04/18/2023, post treatment primary tumor assessment: Complete/near complete response. -Free text summary of relevant findings/interval change. mrTRG: Grade 2 - Good response Suspicious Mesorectal lymph nodes: No. Suspicious Extramesorectal lymph nodes: No. 02/25/2024 Sigmoidoscopy (Dr. Norman) Scar in the distal rectum. The examination was otherwise normal. 12/20/2023 CT chest IMPRESSION: 1. Stable nonspecific subcentimeter pulmonary nodules as described above. There are also stable small nonspecific mediastinal lymph nodes and right hilar lymph node. Would advise continued close attention on follow-up/surveillance scans. 12/20/2023 CT abdomen/pelvis IMPRESSION: 1. No evidence of metastatic disease in the abdomen or pelvis. 12/03/2023 MRI rectum IMPRESSION: DENSE SCAR INVOLVING THE LOW RECTAL WALL / ANAL CANAL, UNCHANGED FROM PRIOR. NO RESIDUAL VIABLE TUMOR. NO LYMPHADENOPATHY. 11/05/2023 Sigmoidoscopy One 3 mm polyp in the rectum. Scar in the distal rectum. The examination was otherwise normal. 07/09/2023 Sigmoidoscopy Scar in the distal rectum. Examination otherwise normal. 06/20/2023 CT chest IMPRESSION: 1. Several bilateral nonspecific pulmonary nodules are again identified, stable in size and number from the prior study of 12/10/2022. 2. Mild right hilar adenopathy appears more conspicuous. Additional mildly prominent hilar and mediastinal lymph nodes elsewhere, stable. Correlation with continued follow-up examinations is recommended. 06/20/2023 CT abdomen/pelvis IMPRESSION: Stable CT examination of the abdomen. No CT evidence for metastatic disease. Incidental note is again made of cholelithiasis and bilateral nonobstructive nephrolithiasis. 04/18/2023 MRI rectum IMPRESSION: Dense scar in [...] was benign. 01/22/2023 [place] extremity [place] Extensive deep venous thrombosis of the left [...] to the thorax. 10/01/2022 MRI abdomen [place] No MRI evidence of liver lesion 09/25/2022 [...] No neoplastic hypermetabolic lesions 09/11/2022 MRI pelvis [place] Low rectal neoplasm with suspected early invasion of the internal anal sphincter at the upper canal (MRI category T3b, N0). Few nonenlarged 2 to 3 mm mesorectal lymph nodes. No suspicious lymphadenopathy. 09/11/2022 CT chest, abdomen, pelvis ([facility]) Possible low-attenuation lesion right hepatic lobe under centimeter in size. MRI could better characterize this should be performed with IV contrast. Nodular density within the left adrenal gland which could represent metastasis or adenoma. Multiple noncalcified pulmonary nodules worrisome for metastatic disease. Largest measures approxi-1 cm in the right upper lobe. LABORATORY DATA: Hemoglobin (g/dL) Date Value 11/10/2024 11.2 08/04/2018 14.3 Hematocrit (%) Date Value 11/10/2024 35.3 08/04/2018 43.1 WBC (k/uL) Date Value 11/10/2024 8.74 08/04/2018 6.24 Platelet Count (k/uL) Date Value 11/10/2024 263 08/04/2018 216 CEA 09/05/2022 14.4 09/17/2022 15.7 10/02/2022 14.1 10/29/2022 10.5 11/19/2022 3.7 12/17/2022 1.7 01/22/2023 2.4 03/19/2023 2.0 09/05/2023 1.8 11/21/2023 1.8 08/24/2024 1.8 ASSESSMENT/PLAN: 1. Rectal cancer (HCC) - ICD9: [...] 10/10/2022 was negative. It was felt the patient had localized disease, and recommendations were to proceed with neoadjuvant chemoradiation. Treatment with capecitabine 825 mg/m2 twice daily concurrent with pelvic radiation given 10/08/2022 through 11/19/2022. With treatment the patient's rectal pain and bleeding resolved. Follow-up CT scans 12/10/2022 stable with no evidence of metastatic disease. Subsequently the patient continued neoadjuvant treatment with chemotherapy consisting of FOLFOX x7 cycles 12/25/2022 through 03/21/2023. It was then elected to discontinue chemotherapy to minimize toxicity. Follow-up colonoscopy 04/09/2023 revealed no evidence of disease Rectal MRI 04/18/2023 revealed no evidence of disease. It was then elected to postpone surgery and proceed with active surveillance. Most recent rectal MRI May 2024 stable. Most recent colonoscopy July [address] abd/pelvis August 2024 stable. He now has a palpable, tender mass in the RLQ of his abdomen. I recommended CT abdomen/pelvis to evaluate the area and see us back after to review. I will also order a CEA which he can have done with the CT scan. He is currently scheduled for a routine sigmoidoscopy with Dr. Norman November 24, 2024, which he will keep for now. 2. Rheumatoid arthritis Diagnosed 2005. Previous treatment [...] post anticoagulation with Eliquis x 2 years. January 2023 the patient developed acute left leg pain and swelling. Lower extremity Doppler scan 01/22/2023 revealed an extensive DVT of the left leg. Anticoagulation with Xarelto started 01/23/2023. Currently stable. Plans will be to continue anticoagulation indefinitely. 7. Perforated colon Surveillance colonoscopy 07/21/2024 revealed no abnormalities, but was complicated by perforation of the cecum. The patient underwent urgent surgery with a laparoscopic right colectomy on 07/22/2024. Postop he required multiple drain placements and prolonged IV antibiotics for intra-abdominal abscesses. Currently on IV Zosyn per [facility] ID. Clinically stable at this time. Continue management per [facility] colorectal surgery/ID. Kari Diaz PA-C I spent a total of 36 minutes on the date of the service which included preparing to see the patient, [id number] patient care, completing clinical documentation, performing a medically appropriate examination, counseling and educating the patient/family/caregiver, ordering medications, tests, or procedures, independently interpreting results (not separately reported), communicating results to the patient/family/caregiver, and care coordination (not separately reported). documented in this encounter [facility] 11-10-2024 Note [facility] 11-10-2024 History of Presen t illness Narrative Radiology Service Progress Note PATIENT NAME: Mervat Grayson DATE OF SERVICE: November 10, 2024 TIME: 11:31 AM PATIENT IDENTITY VERIFICATION COMPLETED USING TWO (2) IDENTIFIERS: Name and Date of confirmed by patient verbally. FALL SCREENING: Has the patient had 2 falls in the last year or 1 fall with injury or currently using an Ambulatory Assistive Device (Walker, Cane, Wheelchair, Crutches, etc.)? No PATIENT GENDER DATA: Assigned male at PATIENT RELEVANT IMPLANT DATA REVIEWED: Not Applicable PATIENT PRESENTS WITH AN IMPLANTABLE OR ATTACHED DRAINAGE ENGINEER: No RADIOLOGY DEPARTMENT: CT; Exam(s) Completed: Abdomen/Pelvis PERIPHERAL IV DATA: Not applicable SIGNED BY: RT Johny(R) November 10, 2024 11:31 AM POWER port scannned 12/20/2022-VELIA documented in this encounter [facility] 11-10-2024 Note [facility] 11-06-2024 Telephone encounter Note Pt notified and verbalizes understanding. Denisha Duarte RN [facility] Work Phone: 11-06-2024 Miscellaneous Notes Pt notified and verbalizes understanding. Denisha Duarte RN Agree, hernia quite likely. If it appears to be a hernia on clinical exam we can then refer to surgery. Spoke w/ patient who reports swelling in his right lower abdomen. States the area has tripled in size over the last 2 weeks. Notes pain w/ movement and stretching. Denies any heavy lifting or any change in level of activity. Describes his stools as normal. desktop publishing specialist scheduled pt to see Kari on Saturday prior to this phone call. Informed pt it could be a hernia he's describing and that he may need to see the surgeon if so. What are your thoughts? Denisha Duarte RN Dr Anderson received a voicemail from pt w/ c/o abdominal pain. Call placed to pt for further assessment. No answer. Message left requesting call back. Denisha Duarte RN documented in this encounter [facility] 11-05-2024 Telephone encounter Note Agree, hernia quite likely. If it appears to be a hernia on clinical exam we can then refer to surgery. [facility] 11-05-2024 Telephone encounter Note Spoke w/ patient who reports swelling in his right lower abdomen. States the area has tripled in size over the last 2 weeks. Notes pain w/ movement and stretching. Denies any heavy lifting or any change in level of activity. Describes his stools as normal. desktop publishing specialist scheduled pt to see Kari on Saturday prior to this phone call. Informed pt it could be a hernia he's describing and that he may need to see the surgeon if so. What are your thoughts? Denisha Duarte RN [facility] 11-05-2024 Telephone encounter Note Patient coming in Saturday11/10/24 for follow up. Please add lab orders. Thanks. Orin Kolb MA [facility] 11-05-2024 Miscellaneous Notes Patient coming in Saturday11/10/24 for follow up. Please add lab orders. Thanks. Orin Kolb MA documented in this encounter [facility] 11-05-[address] Anderson received a voicemail from pt w/ c/o abdominal pain. Call placed to pt for further assessment. No answer. Message left requesting call back. Denisha Duarte RN [facility] 10-23-2024 Telephone encounter Note Patient calling asking about C-diff results. They are scanned into chart CB# [phone] [facility] 10-23-2024 Miscellaneous Notes Patient calling asking about C-diff results. They are scanned into chart CB# [phone] documented in this encounter [facility] 10-19-2024 Telephone encounter Note Returned call. He reports he is continuing to have diarrhea which began on 10/15. Dr. Werner ordered a c diff test on 10/17 but patient has not had it done because he needs it sent to [facility]. Called [facility] and was given [phone] as the fax number to send the lab order to. [facility] 10-19-2024 Miscellaneous Notes Returned call. He reports he is continuing to have diarrhea which began on 10/15. Dr. Werner ordered a c diff test on 10/17 but patient has not had it done because he needs it sent to [facility]. Called [facility] and was given [phone] as the fax number to send the lab order to. Patient called with concerns of diarrhea and nausea and vomiting at present return call to [phone] documented in this encounter [facility] 10-19-2024 Telephone encounter Note Patient called with concerns of diarrhea and nausea and vomiting at present return call to [phone] [facility] Work Phone: 09-27-2024 Hospital Discharg e instructions Patient Education 09/27/2024 18:07:05 Abdominal Pain, Adult Abdominal Pain, Adult Pain in the abdomen (abdominal pain) can be caused by many things. In most cases, it gets better with no treatment or by being treated at home. But in some cases, it can be serious. Your health care provider will ask questions about your medical history and do a physical exam to try to figure out what is causing your pain. Follow these instructions at home: Medicines Take [id number] and prescription medicines only as told by your provider. Do not take medicines that help you poop (laxatives) unless told by your provider. General instructions Watch your condition for any changes. Drink enough fluid to keep your pee (urine) pale yellow. Contact a health care provider if: Your pain changes, gets worse, or lasts longer than expected. You have severe cramping or bloating in your abdomen, or you vomit. Your pain gets worse with meals, after eating, or with certain foods. You are constipated or have diarrhea for more than 2 3 days. You are not hungry, or you lose weight without trying. You have signs of dehydration. These may include: ?Dark pee, very little pee, or no pee. ?Cracked lips or dry mouth. ?Sleepiness or weakness. You have pain when you pee (urinate) or poop. Your abdominal pain wakes you up at night. You have blood in your pee. You have a fever. Get help right away if: You cannot stop vomiting. Your pain is only in one part of the abdomen. Pain on the right side could be caused by appendicitis. You have bloody or black poop (stool), or poop that looks like tar. You have trouble breathing. You have chest pain. These symptoms may be an emergency. Get help right away. Call 911. Do not wait to see if the symptoms will go away. Do not drive yourself to the hospital. This information is not intended to replace advice given to you by your health care provider. Make sure you discuss any questions you have with your health care provider. Document Revised: 07/24/2023 Document Reviewed: 07/24/2023 [employer] Patient Education 2023 [facility]. Follow Up Care 09/27/2024 11:28:00 With:Your surgeon Address:Unknown When:09/30/2024 18:06:37 Comments:Call the office tomorrow to arrange for follow-up care [facility] 09-27-2024 Note ED Patient Education Note Gastroenterology Abdominal Pain, Adult Pain in the abdomen (abdominal pain) can be caused by many things. In most cases, it gets better with no treatment or by being treated at home. But in some cases, it can be serious. Your health care provider will ask questions about your medical history and do a physical exam to try to figure out what is causing your pain. Follow these instructions at home: Medicines ??? Take [id number] and prescription medicines only as told by your provider. ??? Do not take medicines that help you poop (laxatives) unless told by your provider. General instructions ??? Watch your condition for any changes. ??? Drink enough fluid to keep your pee (urine) pale yellow. Contact a health care provider if: ??? Your pain changes, gets worse, or lasts longer than expected. ??? You have severe cramping or bloating in your abdomen, or you vomit. ??? Your pain gets worse with meals, after eating, or with certain foods. ??? You are constipated or have diarrhea for more than 2?3 days. ??? You are not hungry, or you lose weight without trying. ??? You have signs of dehydration. These may include: ? Dark pee, very little pee, or no pee. ? Cracked lips or dry mouth. ? Sleepiness or weakness. ??? You have pain when you pee (urinate) or poop. ??? Your abdominal pain wakes you up at night. ??? You have blood in your pee. ??? You have a fever. Get help right away if: ??? You cannot stop vomiting. ??? Your pain is only in one part of the abdomen. Pain on the right side could be caused by appendicitis. ??? You have bloody or black poop (stool), or poop that looks like tar. ??? You have trouble breathing. ??? You have chest pain. These symptoms may be an emergency. Get help right away. Call 911. ??? Do not wait to see if the symptoms will go away. ??? Do not drive yourself to the hospital. This information is not intended to replace advice given to you by your health care provider. Make sure you discuss any questions you have with your health care provider. Document Revised: 07/24/2023 Document Reviewed: 07/24/2023 [employer] Patient Education ? 2023 [facility]. [facility] 09-27-2024 Evaluation + Plan note Extrac swati from: Title:ED Note Author:Micky Cueto DO Date:1 11/28/23 Abdominal pain (R10.9: Unspe cified abdominal pain) Orders: Basic Metabolic Panel CBC w/ Auto Diff CT Abdomen/Pelvis w/ Contrast eGFR Extra Blue Tube Extra SST Tube Hepatic Function Panel UA with Cult Rflx Future Appointments Appointment Date:02/15/2025 08:45:00 AM Scheduled Provider:Corey SINGLETON MD Location:[facility] Appointment Type:URO Office Visit Appointment Date:03/10/2025 08:00:00 AM Scheduled Provider:Pato Peña PA-C Location:[facility].Cardiology Clinic Appointment Type:Cardiology Follow Up ([facility]) Future Scheduled Tests Laboratory* B-Type Natriuretic Peptide 11/01/23 * Basic Metabolic Panel 11/01/23 Radiology* Echo Transthoracic Complete 01/10/25 [facility] [id number] [facility] History of Present illness Narrative* Dayanara Sullivan APRN.CHAINSTITCH ZIPPER SETTER - 09/16/2024 4:39 PM EST COLORECTAL SURGERY September 16, 2024 Mervat Grayson 73 year old Chief Complaint: Abdominal drain removal History of Present Illness: Mervat Grayson is a 73 year old male known to our office for history of rectal cancer. He underwent colonoscopy and ultimately experienced right colon perforation requiring laparoscopic right colectomy with umbilical hernia repair on 07/23/[address] Norman. Postoperative course has been complicated by intra- abdominal fluid collection/pelvic abscesses. He presents today for abdominal drain removal. Overall he has been doing fairly well since last office visit. Previous abdominal drain to left abdomen was removed. He states there is very minimal to no drainage in RADHA drain. Has been flushing with saline every few days. Earlier this week he experienced some pain and burning around the drain insertion site that has since resolved. No fevers or chills recently. Has been complaining of some intermittent nausea that he feels is related to the right sided drain placement. Bowel movements have been improving since last office visit. Has been tolerating a diet without difficulty. PAST MEDICAL HISTORY Diagnosis Date Acute low back pain with possible spinal stenosis of less than six weeks' duration Adenocarcinoma of rectum (HCC) Arthritis Bilateral renal cysts peripelvic BPH with urinary obstruction Cholelithiasis History of kidney stones Non-ischemic cardiomyopathy (HCC) Perforation bowel (HCC) 07/29/2024 Pulmonary emboli (HCC) 2020 left lower lobe RA (rheumatoid arthritis) (HCC) PAST SURGICAL HISTORY Procedure Laterality Date COLONOSCOPY HAMMERTOE REVISION, ONE TOE HEMORRHOID SURGERY HX HERNIA REPAIR HX LITHOTRIPSY PROC UNILATERAL REMV CATARACT EXTRACAP,INSERT LENS Current Outpatient Medications Medication Sig Dispense Refill piperacillin-tazobactam (ZOSYN) 40.5 gram injection 40.5 g as directed. sodium chloride 0.9 %, flush, (NORMAL SALINE FLUSH) syringe Inject 10 mL intravenously every 12 hours. Flush each IR drain with 10mL normal saline every 12 hours. 1000 mL 1 sodium chloride 0.9 %, flush, (NORMAL SALINE FLUSH) syringe Inject 10 mL intravenously every 12 hours. For use with IV antibiotics and IR drains 1000 mL 1 rivaroxaban (XARELTO) 20 mg tablet Take 1 tablet by mouth once daily. Patient should start on July 30, 2024. 90 tablet 3 ondansetron (ZOFRAN) 4 mg tablet Take 1 tablet by mouth every 8 hours as needed for nausea/vomiting. 20 tablet 1 calcium carbonate (CALCIUM 600 ORAL) Take 1 tablet by mouth once daily. glucosamine/chondr perez A sod (GLUCOSAMINE-CHONDROITIN) 1,500-1,200 mg/30 mL liqd Take by mouth once daily. predniSONE (DELTASONE) 5 mg tablet Take 5 mg by mouth once daily. valsartan (DIOVAN) 80 mg tablet Take 80 mg by mouth once daily. carvedilol (COREG) 6.25 mg tablet Take 6.25 mg by mouth twice daily with meals. tamsulosin ER (FLOMAX) 0.4 mg cap Take [...] Never Smokeless tobacco: Never Vaping Use Vaping status: Never Used Substance Use Topics Alcohol use: Yes Comment: rarely Drug use: No Physical Exam: BP 125/92 (BP Site: Right Arm, BP Position: Sitting) Pulse 68 Temp 36 C (96.8 F) Ht 188 cm (6' 2 ) Wt 102.1 kg (225 lb) SpO2 98% BMI 28.89 kg/m General Appearance: Well appearing, alert, in no acute distress, well-hydrated, well nourished. Abdomen: Abdomen is soft, nontender, nondistended. Right sided abdominal RADHA drain in place. Drain removed without difficulty. Site covered with 4 x 4 and paper tape Assessment Assessment and Plan: Mervat Grayson is a 73 year old male doing fairly well despite recent laparoscopic right colectomy for bowel perforation. He is scheduled to follow-up with his medical oncologist for routine follow-up in November. He states he is due for repeat flexible sigmoidoscopy for rectal cancer surveillance with Dr. Norman in October. He was advised to contact the office with any new or concerning symptoms in the meantime. Continue to slowly advance diet as tolerated. Dayanara Sullivan APRN.ARACELY Colorectal Surgery [facility] Telephone encounter Note * Telephone Encounter - Chelsie Kolb RN - 09/15/2024 9:23 AM EST See previous phone encounter [facility] Miscellaneous Notes* Telephone Encounter - Chelsie Kolb RN - 09/15/2024 9:23 AM EST See previous phone encounter * Telephone Encounter - Kraig Herring - 09/15/2024 9:03 AM EST Pt calling to speak to nurse, regarding getting tube out of stomach and if there is any updates. CB#: [phone] documented [facility] Telephone encounter Note * Telephone Encounter - Kraig Herring - 09/15/2024 9:03 AM EST Pt calling to speak to nurse, regarding getting tube out of stomach and if there is any updates. CB#: [phone] [facility]-25-[facility] Telephone encounter Note* Telephone Encounter - Chelsie Kolb RN - 09/14/2024 12:47 PM EST Returned call. He currently has [address] The drain was changed by IR on 09/08 with instructions to flush it every 2-3 days. He is wondering what the plan is for the drain at this point. How long will he have it? What are the plans for checking it again or removing it? He also reports this morning he was awaked by a severe burning sensation below the skin that lasted3-4 hours. It is tolerable now with ice packs on it. This is new and he is wondering what this could be from. [facility]11-25[facility] Miscellaneous Notes* Telephone Encounter - Chelsie Kolb RN - 09/14/2024 12:47 PM EST Returned call. He currently has [address] The drain was changed by IR on 09/08 with instructions to flush it every 2-3 days. He is wondering what the plan is for the drain at this point. How long will he have it? What are the plans for checking it again or removing it? He also reports this morning he was awaked by a severe burning sensation below the skin that lasted3-4 hours. It is tolerable now with ice packs on it. This is new and he is wondering what this could be from. * Telephone Encounter - Debbi Bourgeois - 09/14/2024 10:05 AM EST Lottie, Received a call form the patient requesting clinical advice regarding the infection treatment. Per patient re received treatment from the radiology team in the ER for one of the tubes patient wants to know when the second tube should be removes as the patient is experiencing a burning sensation. Patient can be reached at [phone]. Thank you documented in [facility]11-[facility]24 Telephone encounter Note * Telephone Encounter - Debbi Bourgeois - 09/14/2024 10:05 AM EST Lottie, Received a call form the patient requesting clinical advice regarding the infection treatment. Per patient re received treatment from the radiology team in the ER for one of the tubes patient wants to know when the second tube should be removes as the patient is experiencing a burning sensation. Patient can be reached at [phone]. Thank you [facility]11-19-[facility]24 NoteHNO ID: [id number] Author: HARVINDER HARRELL, RN Service: Nursing Author Type: Registered Nurse Type: Nursing Progress Note Filed: 09/08/2024 13:44 Note Text: Pt given apple juice and saltines. [id number] Telephone encounter Note* Telephone Encounter - Jaclyn Ramírez RN - 09/07/2024 12:40 PM EST You are scheduled for a Drain Exchange, On 09/08/2024. You are to arrive at 12:00pm and Report to [facility]: [facility]: Radiology Outpatient Desk [id number] You can expect to be here for 2-4 hours. Diet: Do not eat any solid food after MIDNIGHT the day of/night before your procedure. You may drink clear liquids until 11:00am, which means black coffee, apple juice, black tea, or water only. Medications: Ok to take your cardiac, blood pressure, anti-seizure, and chronic pain medications with a sip of water, please take prior to arrival. Bring your current medication list. Contrast Dye Prep: Do you have a contrast dye allergy? No. Labs: Lab-work needs to be drawn? No.. Railroad Auditor/Transportation: How will you be arriving for your procedure? Private car. You will need a responsible adult to accompany you to and from the procedure. Your dairy truck driver is required to stay with you until you are taken into the procedure room. Please call [phone] if you have any questions [facility]-18-[facility] Miscellaneous Notes* Telephone Encounter - Jaclyn Ramírez RN - 09/07/2024 12:40 PM EST You are scheduled for a Drain Exchange, On 09/08/2024. You are to arrive at 12:00pm and Report to [facility]: [facility]: Radiology Outpatient Desk [id number] You can expect to be here for 2-4 hours. Diet: Do not eat any solid food after MIDNIGHT the day of/night before your procedure. You may drink clear liquids until 11:00am, which means black coffee, apple juice, black tea, or water only. Medications: Ok to take your cardiac, blood pressure, anti-seizure, and chronic pain medications with a sip of water, please take prior to arrival. Bring your current medication list. Contrast Dye Prep: Do you have a contrast dye allergy? No. Labs: Lab-work needs to be drawn? No.. Railroad Auditor/Transportation: How will you be arriving for your procedure? Private car. You will need a responsible adult to accompany you to and from the procedure. Your dairy truck driver is required to stay with you until you are taken into the procedure room. Please call [phone] if you have any questions documented in this encounterR[facility]11-18-2024 [facility] History of Present illness Narrative* Minerva Anderson MD - 09/07/2024 8:13 AM EST PATIENT NAME: Mervat Grayson DATE: 09/08/2024 PRIMARY CARE PHYSICIAN: Dr. Lorenzo Marin OTHER PHYSICIANS: Dr. Mervat Slaughter, Dr. Thalia Troy, Dr. Kiko Treadwell, Dr. Key, Dr. Micha Mccabe, Dr. JARROD Lozano ([facility] ID) Portions of this encounter note have been copied from the note from 03/12/2024 and has been updated where appropriate, and reflect my current medical decision making from today. CC: This is a 73 year old male with localized rectal cancer, seen for scheduled follow-up. INTERIM HISTORY: Since the patient's last visit here he underwent a surveillance colonoscopy on 07/21/2024 which revealed no abnormalities, but was complicated by perforation of the cecum. He underwent urgent surgery with a laparoscopic right colectomy on 07/22/2024. Postop he required multiple drainplacements and prolonged IV antibiotics. On current management he is slowly improving. He has mild abdominal discomfort at the areas of drain placement but no severe pain or other GI symptoms. He currently is on IV antibiotics with Zosyn which he is tolerating. Most recent CT abdomen/pelvis 08/25/2024 revealed no evidence of malignancy, but several areas suspicious for abscess. Chronic back pain unchanged. He remains on Xarelto for his DVT and has had no significant bruising or bleeding. MEDICATIONS: Current Outpatient Medications Medication Sig piperacillin-tazobactam (ZOSYN) 40.5 gram injection 40.5 g as directed. sodium chloride 0.9 %, flush, (NORMAL SALINE FLUSH) syringe Inject 10 mL intravenously every 12 hours. Flush each IR drain with 10mL normal saline every 12 hours. sodium chloride 0.9 %, flush, (NORMAL SALINE FLUSH) syringe Inject 10 mL intravenously every 12 hours. For use with IV antibiotics and IR drains rivaroxaban (XARELTO) 20 mg tablet Take 1 tablet by mouth once daily. Patient should start on July 30, 2024. ondansetron (ZOFRAN) 4 mg tablet Take 1 tablet by mouth every 8 hours as needed for nausea/vomiting. calcium carbonate (CALCIUM 600 ORAL) Take 1 tablet by mouth once daily. glucosamine/chondr perez A sod (GLUCOSAMINE-CHONDROITIN) 1,500-1,200 mg/30 mL liqd Take by mouth once daily. predniSONE (DELTASONE) 5 mg tablet Take 5 mg by mouth once daily. valsartan (DIOVAN) 80 mg tablet Take 80 mg by mouth once daily. carvedilol (COREG) 6.25 mg tablet Take 6.25 mg by mouth twice daily with meals. tamsulosin ER (FLOMAX) 0.4 mg cap Take [...] History of kidney stones Non-ischemic cardiomyopathy (HCC) Perforation bowel (HCC) 07/29/2024 Pulmonary emboli (HCC) 2020 left lower lobe [...] Never Smokeless tobacco: Never Vaping Use Vaping status: Never Used Substance Use Topics Alcohol use: Yes Comment: [...] paralysis, seizures or tremors PHYSICAL EXAM: BP 134/83 Pulse 83 Temp 36.3 C (97.4 F) (Temporal) Resp 18 Ht 188 cm (6' 2.02 ) Wt 102.5 kg (225 lb 15.5 oz) SpO2 97% BMI 29.00 kg/m ECOG 0 Exam limited to gross [...] without rash, lesions, wounds or petechiae. PATHOLOGY: 07/23/2024 Right hemicoloctomy A. Soft tissue, umbilical region, excision: - Benign fibroadipose and fibromembranous tissue with acute inflammation, consistent with hernia sac. B. Right colon, terminal ileum, and appendix, right hemicolectomy: - Dilated colon with transmural suppurative inflammation and necrosis, consistent with ischemic bowel injury. - Appendix with fibrolipomatous obliteration and acute serositis. - Small bowel with acute serositis. - Benign lymph nodes. 04/09/2023 Anal canal, polyp, biopsy: Squamous mucosa polyp. 08/20/2022 [place] Adenocarcinoma of colon (mass at anal verge) Mismatch repair gene -normal expression RADIOLOGY/OTHER STUDIES: 08/25/2024 CT abdomen/pelvis IMPRESSION: 1. No CT evidence of recurrent or metastatic disease in the abdomen or pelvis. 2. Significant improvement of the multiple fluid collections previously seen within the abdomen or pelvis, with bilateral percutaneous drains remaining in place. The respective fluid collection cavities are now collapsed around either pigtail. 3. Persistent rim-enhancing pelvic fluid collection. Though decreased in size, measuring 3.0 x 2.2 cm (previously 4.0 x 2.6 cm), this finding remains concerning for abscess 3.0 x 2.2 cm (previously 4.0 x 2.6 cm). 4. Another lobulated 3.8 x 2.1 cm (previously 4.3 x 2.1 cm) fluid collection adjacent to the bowel anastomosis persists. Given the lack of convincing peripheral enhancement, this may reflect a postoperative seroma. However, sterility cannot be confirmed at CT imaging. 5. Additional incidental findings as above. 08/13/2024 CT abdomen/pelvis IMPRESSION: Postsurgical changes of right hemicolectomy with 3 fluid collections in the pelvis with enhancing dos santos, suspicious for abscesses. The right lower quadrant 1 is located immediately adjacent to the ileocolonic anastomosis and contains foci of air, suspicious for leak 07/21/2024 Screening colonoscopy Impression: Scar in the distal rectum. The examination was otherwise normal on direct and retroflexion views. No specimens collected. 06/04/2024 MRI rectum IMPRESSION: DENSE SCAR INVOLVING THE LOW RECTAL WALL / ANAL CANAL, UNCHANGED FROM PRIORS. NO RESIDUAL VIABLE TUMOR. NO LYMPHADENOPATHY. Since 04/18/2023, post treatment primary tumor assessment: Complete/near complete response. -Free text summary of relevant findings/interval change. mrTRG: Grade 2 - Good response Suspicious Mesorectal lymph nodes: No. Suspicious Extramesorectal lymph nodes: No. 02/25/2024 Sigmoidoscopy (Dr. Norman) Scar in the distal rectum. The examination was otherwise normal. 12/20/2023 CT chest IMPRESSION: 1. Stable nonspecific subcentimeter pulmonary nodules as described above. There are also stable small nonspecific mediastinal lymph nodes and right hilar lymph node. Would advise continued close attention on follow-up/surveillance scans. 12/20/2023 CT abdomen/pelvis IMPRESSION: 1. No evidence of metastatic disease in the abdomen or pelvis. 12/03/2023 MRI rectum IMPRESSION: DENSE SCAR INVOLVING THE LOW RECTAL WALL / ANAL CANAL, UNCHANGED FROM PRIOR. NO RESIDUAL VIABLE TUMOR. NO LYMPHADENOPATHY. 11/05/2023 Sigmoidoscopy One 3 mm polyp in the rectum. Scar in the distal rectum. The examination was otherwise normal. 07/09/2023 Sigmoidoscopy Scar in the distal rectum. Examination otherwise normal. 06/20/2023 CT chest IMPRESSION: 1. Several bilateral nonspecific pulmonary nodules are again identified, stable in size and number from the prior study of 12/10/2022. 2. Mild right hilar adenopathy appears more conspicuous. Additional mildly prominent hilar and mediastinal lymph nodes elsewhere, stable. Correlation with continued follow-up examinations is recommended. 06/20/2023 CT abdomen/pelvis IMPRESSION: Stable CT examination of the abdomen. No CT evidence for metastatic disease. Incidental note is again made of cholelithiasis and bilateral nonobstructive nephrolithiasis. 04/18/2023 MRI rectum IMPRESSION: Dense scar in [...] was benign. 01/22/2023 [place] extremity [place] Extensive deep venous thrombosis of the left [...] to the thorax. 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 Few nonenlarged 2 to 3 mm mesorectal lymph nodes. No suspicious lymphadenopathy. 09/11/2022 CT chest, abdomen, pelvis ([facility]) Possible low-attenuation lesion right hepatic lobe under centimeter in size. MRI could better characterize this should be performed with IV contrast. Nodular density within the left adrenal gland which could represent metastasis or adenoma. Multiple noncalcified pulmonary nodules worrisome for metastatic disease. Largest measures approxi-1 cm in the right upper lobe. LABORATORY DATA: Hemoglobin (g/dL) Date Value 09/08/2024 11.0 08/04/2018 14.3 Hematocrit (%) Date Value 09/08/2024 34.6 08/04/2018 43.1 WBC (k/uL) Date Value 09/08/2024 6.57 08/04/2018 6.24 Platelet Count (k/uL) Date Value 09/08/2024 225 08/04/2018 216 CEA 09/05/2022 14.4 09/17/2022 15.7 10/02/2022 14.1 10/29/2022 10.5 11/19/2022 3.7 12/17/2022 1.7 01/22/2023 2.4 03/19/2023 2.0 09/05/2023 1.8 11/21/2023 1.8 08/24/2024 1.8 ASSESSMENT/PLAN: 1. Rectal cancer (HCC) - ICD9: [...] and bleeding resolved. Follow-up CT scans 12/10/2022 stable with no evidence of metastatic disease. Subsequently the patient continued neoadjuvant treatment with chemotherapy consisting of FOLFOX x7 cycles 12/25/2022 through 03/21/2023. It was then elected to discontinue chemotherapy to minimize toxicity. Follow-up colonoscopy 04/09/2023 revealed no evidence of disease Rectal MRI 04/18/2023 revealed no evidence of disease. It was then elected to postpone surgery and proceed with active surveillance. Most recent rectal MRI May 2024 stable. Most recent colonoscopy July [address] abd/pelvis August 2024 stable. Currently the patient has no evidence of disease. At this time the patient will continue with active surveillance: Exam, KHRIS, CEA and flex sig: year 0-2 every 3 months, years 3-4 every 6 months, years 5-10 yearly MRI pelvis: Years 0-4 every 6 months, years 5-[address] chest, abdomen, pelvis: Years 0-2 every 6 months, years 3-10 yearly Colonoscopy: 1 year after treatment, then every 3 years Next Flex sig scheduled for Oct [address] Norman. I will see him back in 3 months for follow-up. When the patient returns we will schedule his pelvic MRI to be done late November 2024. He will not require restaging CT scans until 1 year (July 2025). 2. Rheumatoid arthritis Diagnosed 2005. Previous treatment [...] Plans will be to continue anticoagulation indefinitely. 7. Perforated colon Surveillance colonoscopy 07/21/2024 revealed no abnormalities, but was complicated by perforation ofthe cecum. The patient underwent urgent surgery with a laparoscopic right colectomy on 07/22/2024. Postop he required multiple drain placements and prolonged IV antibiotics for intra-abdominal abscesses. Currently on IV Zosyn per [facility] ID. Clinically stable at this time. Continue management per [facility] colorectal surgery/ID. Minerva Anderson MD documented in [facility]11[facility] Telephone encounter Note * Telephone Encounter - Harvinder Harrell RN - 09/04/2024 1:16 PM EST Called pt to provide pre-procedure instructions. Unidentified voicemail received. Left call back number for pt. [facility]11-[facility] Miscellaneous Notes* Telephone Encounter - Harvinder Harrell RN - 09/04/2024 1:16 PM EST Called pt to provide pre-procedure instructions. Unidentified voicemail received. Left call back number for pt. documented in this encounterRivers[facility]11-15-2024 NoteIMPRESSION: RESOLUTION OF THE MAJORITY OF THE PROCEDURE SEEN FLUID COLLECTION IN THE RIGHT LOWER QUADRANT/UPPER PELVIS WITH PERSISTENT TRACKING OF CONTRAST CRANIALLY AND CAUDALLY WITHOUT FISTULOUS CONNECTION TO THE BOWEL. SMALL, DEEP PELVIC RESIDUAL COLLECTION CONSISTENT WITH THAT SEEN ON CT, CONNECTED TO THE AREA OF DRAINAGE CATHETER LOOP. THE PATIENT WILL BE BROUGHT IN FOR EXCHANGE/REPOSITIONING OF THE CATHETER FOR COPE LOOP TO BE REPOSITIONED INTO THE DEEP PELVIC COLLECTION. Services Manager: SHARON Transcribe Date/Time: Sep 04 2024 11:53A Dictated by : NISHI MATOS RPA This examination was interpreted and the report reviewed and electronically signed by: OSIRIS ESCOBAR MD on Sep 04 2024 12:29PM EST ROARK [id number] History of Present illness Narrative* Ashley Angeles, (R) - 09/04/2024 10:15 AM EST Radiology Service Progress Note PATIENT NAME: Mervat Grayson DATE OF SERVICE: September 04, 2024 TIME: 11:03 AM PATIENT IDENTITY VERIFICATION COMPLETED USING TWO (2) IDENTIFIERS: Name and Date of confirmedby patient verbally and Name and Date of confirmed by identification band. FALL SCREENING: Has the patient had 2 falls in the last year or 1 fall with injury or currently using an Ambulatory Assistive Device (Walker, Cane, Wheelchair, Crutches, etc.)? No PATIENT GENDER DATA: Male PATIENT RELEVANT IMPLANT DATA REVIEWED: Not Applicable PATIENT PRESENTS WITH AN IMPLANTABLE OR ATTACHED DRAINAGE ENGINEER: No RADIOLOGY DEPARTMENT: General X-ray: Exam(s) Completed: GI/ Procedure(s): Tube Injection with water soluable contrast PERIPHERAL IV DATA: Not applicable SIGNED BY: RT Jose(R) September 04, 2024 11:03 AM documented in [facility] encounterR[facility]11-[facility]-2024 NoteHNO ID: [id number] Author: ASHLEY ANGELES RT (R) Service: ? Author Type: Technologist Type: Progress Notes Filed: 09/04/2024 11:04 Note Text: Radiology Service Progress Note PATIENT NAME: Mervat Grayson DATE OF SERVICE: September 04, 2024 TIME: 11:03 AM PATIENT IDENTITY VERIFICATION COMPLETED USING TWO (2) [...] DATA: Male PATIENT RELEVANT IMPLANT DATA REVIEWED: Not Applicable PATIENT PRESENTS WITH AN IMPLANTABLE OR ATTACHED DRAINAGE ENGINEER: No RADIOLOGY DEPARTMENT: General X-ray: Exam(s) Completed: GI/ Procedure(s): Tube Injection with water soluable contrast PERIPHERAL IV DATA: Not applicable SIGNED BY: RT Jose(R) September 04, 2024 11:03 [facility]11-13-2024 Telephone encounter Note* Telephone Encounter - Chelsie Kolb RN - 09/02/2024 11:[address] Norman, the drain should stay in place but he will order an IR drain study in [address] Norman (or Lizette Sullivan) will see him in the office. [facility]11-13-2024 Miscellaneous Notes* Telephone Encounter - Chelsie Kolb RN - 09/02/2024 11:[address] Norman, the drain should stay in place but he will order an IR drain study in [address] Norman (or Lizette Sullivan) will see him in the office. * Telephone Encounter - Clarissa Pena - 08/28/2024 4:08 PM EST [facility] calling to update about drain output. He recently had drain replaced and since only 5cc of output. They are asking if he still needs to the drain Raoul. CB# [phone] documented in this encounterR[facility]11-08-2024 Telephone encounter Note * Telephone Encounter - Rashmi Lerner - 08/28/2024 4:23 PM EST Appointments cancelled. Rashmi Lerner [facility]11-08-2024 Miscellaneous Notes* Telephone Encounter - Rashmi Lerner - 08/28/2024 4:23 PM EST Appointments cancelled. Rashmi Lerner * Telephone Encounter - Mariluz Kolb RN - 08/28/2024 4:06 PM EST Raoul VAUGHAN from [facility] called asking if patient still need to come for CT scan on 09/03/24 as he had one done at [facility] on 08/25/24 due to issues with his drains. Called Raoul back to let her know they did use Dr. Anderson's order for the CT A/P and we can cancel scan appointment on 09/03/24. Raoul states she will contact the patient and let him know. Reviewed next appointment scheduled with Dr. Anderson on 09/08/24. PSS: please cancel CT scan here on 09/03/24. Thanks Caesar Kolb RN documented in this encounterRiverside [facility] Hospital11-08-2024 Telephone encounter Note * Telephone Encounter - Clarissa Pena - 08/28/2024 4:08 PM EST [facility] calling to update about drain output. He recently had drain replaced and since only 5cc of output. They are asking if he still needs to the drain Raoul. CB# [phone] [facility]11-08-2024 Telephone encounter Note* Telephone Encounter - Mariluz Kolb RN - 08/28/2024 4:06 PM EST Raoul RN from [facility] called asking if patient still need to come for CT scan on 09/03/24 as he had one done at [facility] on 08/25/24 due to issues with his drains. Called Raoul back to let her know they did use Dr. Anderson's order for the CT A/P and we can cancel scan appointment on 09/03/24. Raoul states she will contact the patient and let him know. Reviewed next appointment scheduled with Dr. Anderson on 09/08/24. PSS: please cancel CT scan here on 09/03/24. Thanks Caesar Kolb RN [facility]11-07-2024 Telephone encounter Note* Telephone Encounter - Gloria Gray - 08/27/2024 10:47 AM EST Patient is rescheduled for 09/08/24 at 9:[address] Justin Gray PSS [facility]11-07-[facility]24 Miscellaneous Notes* Telephone Encounter - Gloria Gray - 08/27/2024 10:47 AM EST Patient is rescheduled for 09/08/24 at 9:[address] Justin Gray PSS * Telephone Encounter - Denisha Duarte RN - 08/27/2024 10:35 AM EST Clerical: Please cancel pt's appointment on Saturday, 09/01 and reschedule it for the following week. Thanks! Denisha Duarte RN documented in this encounterRiverside [facility] Hospital11-07-2024 Telephone encounter Note * Telephone Encounter - Denisha Duarte RN - 08/27/2024 10:35 AM EST Clerical: Please cancel pt's appointment on Saturday, 09/01 and reschedule it for the following week. Thanks! Denisha Duarte RN [facility] Work Phone: [phone] 448-426711-05-2024 NoteHNO ID: [id number] Author: RAOUL COON APRN.CHAINSTITCH ZIPPER SETTER Service: Interventional Radiology Author Type: Nurse Practitioner Type: Plan of Care Filed: 08/25/2024 16:48 Note Text: Interventional Radiology Plan of Care Per IR consult order placed by Dr. Manrique, Abscess drain no longer needed and no longer functioning/broken on left side. No residual based on CT. Insertion site of left sided abscess drain cleansed with CHG, suture severed, drain catheter severed, catheter removed with gentle traction, gauze dressing applied. Raoul Coon APRN.CHAINSTITCH ZIPPER SETTER 08/25/24[facility] [id number] NoteHNO ID: [id number] Author: BRI RIVERA RN Service: ? Author Type: Registered Nurse Type: Nursing Progress Note Filed: 08/25/2024 15:05 Note Text: Tatum Pereira, RT removed left lower quadrant abdominal drain prior to discharging patient home.[facility] [id number] NoteHNO ID: [id number] Author: BRI RIVERA, RN Service: ? Author Type: Registered Nurse Type: Nursing Progress Note Filed: 08/25/2024 14:12 Note Text: Tatum Pereira RT came and assessed left abdominal RADHA drain. Exchanged parts of RADHA tubing set up.[facility] CenterXscjkuoz38-08-4517 History of Present illness Narrative * Ashia Hussein RT(R) - 08/25/2024 10:15 AM EST Radiology Service Progress Note PATIENT NAME: Mervat Grayson DATE OF SERVICE: August 25, 2024 TIME: 10:35 AM PATIENT IDENTITY VERIFICATION COMPLETED USING TWO (2) IDENTIFIERS: Name and Date of confirmedby patient verbally and Name and Date of confirmed by identification band. FALL SCREENING: Has the patient had 2 falls in the last year or 1 fall with injury or currently using an Ambulatory Assistive Device (Walker, Cane, Wheelchair, Crutches, etc.)? No PATIENT GENDER DATA: Male PATIENT RELEVANT IMPLANT DATA REVIEWED: Not Applicable PATIENT PRESENTS WITH AN IMPLANTABLE OR ATTACHED DRAINAGE ENGINEER: No RADIOLOGY DEPARTMENT: CT; Exam(s) Completed: Abdomen/Pelvis PERIPHERAL IV DATA: Site assessment: Clean,Dry and Intact, Site disposition Left in for next appointment SIGNED BY: RT Saul(R) August 25, 2024 10:35 AM documented in this encounterRiverside [facility] Hospital11-05-2024 NoteHNO ID: [id number] Author: ASHIA HUSSEIN RT(R) Service: Radiology Author Type: Vineyard Tender Type: Progress Notes Filed: 08/25/2024 10:36 Note Text: Radiology Service Progress Note PATIENT NAME: Mervat Grayson DATE OF SERVICE: August 25, 2024 TIME: 10:35 AM PATIENT IDENTITY VERIFICATION COMPLETED USING TWO (2) [...] DATA: Male PATIENT RELEVANT IMPLANT DATA REVIEWED: Not Applicable PATIENT PRESENTS WITH AN IMPLANTABLE OR ATTACHED DRAINAGE ENGINEER: No RADIOLOGY DEPARTMENT: CT; Exam(s) Completed: Abdomen/Pelvis PERIPHERAL IV DATA: Site assessment: Clean,Dry and Intact, Site disposition Left in for next appointment SIGNED BY: RT Saul(R) August 25, 2024 10:35 [id number] Nurse Note* Harvinder Harrell RN - 08/25/2024 10:15 AM EST Radiology Service Progress Note DATE OF SERVICE: August 25, 2024 TIME: 9:43 AM PATIENT WEIGHT: 238 LBS PATIENT IDENTITY VERIFICATION COMPLETED USING TWO (2) [...] Reviewed and unchanged CONTRAST ALLERGY: No EXAM: CT -CONTRAST INDUCED NEPHROPATHY RISK FACTORS: Patient age > 60 years CREATININE: Creatinine Date Value Ref Range Status 08/18/2024 1.08 0.73 - 1.22 mg/dL Final 08/17/2024 1.12 0.73 - 1.22 mg/dL Final 08/16/2024 1.05 0.73 - 1.22 mg/dL Final Estimated Glomerular Filtration Rate Date Value Ref Range Status 08/18/2024 73 >=60 mL/min/1.73m Final Comment: Estimated Glomerular Filtration Rate (eGFR) is calculated using the 2020 CKD-EPI creatinine equation. This equation utilizes serum creatinine, sex, and age as parameters. The creatinine assay has traceable calibration to isotope dilution- mass spectrometry. Refer to KDIGO guidelines for clinical interpretation. In patients with unstable renal function, e.g. those with acute kidney injury, the eGFRmay not accurately reflect actual GFR. eGFR- Date Value Ref Range Status 08/04/2018 >60 Final P.O.C.T. RESULTS: N/A August 25, 2024 TREATMENT: N/A IV SITE: Ambulatory: A peripheral IV was started in the Right antecubital site with a Angio cath: 20 gauge. IV SITE APPEARANCE: Clean,Dry and Intact SIGNATURE: Harvinder Harrell RN PATIENT NAME: Mervat Grayson DATE: August 25, 2024 TIME: 9:43 AM \ [facility]11-05-[facility] Nurse Note* Harvinder Harrell RN - 08/25/2024 10:15 AM EST Radiology Service Progress Note DATE OF SERVICE: August 25, 2024 TIME: 9:43 AM PATIENT WEIGHT: 238 LBS PATIENT IDENTITY VERIFICATION COMPLETED USING TWO (2) [...] Reviewed and unchanged CONTRAST ALLERGY: No EXAM: CT -CONTRAST INDUCED NEPHROPATHY RISK FACTORS: Patient age > 60 years CREATININE: Creatinine Date Value Ref Range Status 08/18/2024 1.08 0.73 - 1.22 mg/dL Final 08/17/2024 1.12 0.73 - 1.22 mg/dL Final 08/16/2024 1.05 0.73 - 1.22 mg/dL Final Estimated Glomerular Filtration Rate Date Value Ref Range Status 08/18/2024 73 >=60 mL/min/1.73m Final Comment: Estimated Glomerular Filtration Rate (eGFR) is calculated using the 2020 CKD-EPI creatinine equation. This equation utilizes serum creatinine, sex, and age as parameters. The creatinine assay has traceable calibration to isotope dilution- mass spectrometry. Refer to KDIGO guidelines for clinical interpretation. In patients with unstable renal function, e.g. those with acute kidney injury, the eGFRmay not accurately reflect actual GFR. eGFR- Date Value Ref Range Status 08/04/2018 >60 Final P.O.C.T. RESULTS: N/A August 25, 2024 TREATMENT: N/A IV SITE: Ambulatory: A peripheral IV was started in the Right antecubital site with a Angio cath: 20 gauge. IV SITE APPEARANCE: Clean,Dry and Intact SIGNATURE: Harvinder Harrell RN PATIENT NAME: Mervat Grayson DATE: August 25, 2024 TIME: 9:43 AM \ documented in this encounterRiverside [facility]11-04-2024 Telephone encounter Note * Telephone Encounter - Estrella Mcmillan RN - 08/24/2024 3:07 PM EST You are scheduled for a abscess drainage catheter exchange, On 08/25/2024. You are to arrive at 9 15 am and [facility]: [facility]: Radiology Outpatient Desk [facility] Diet: Do not eat any solid food after midnight the day of/night before your procedure. You may drink clear liquids until , which means black coffee, apple juice, black tea, or water only. Medications: Ok to take your cardiac, blood pressure, anti-seizure, and chronic pain medications with a sip of water, please take prior to arrival. Bring your current medication list. RADIOLOGY RECOMMENDS THESE MEDICATION RESTRICTIONS: DO NOT STOP XARALTO FOR THIS PROCEDURE Special concerns: Do you have any attached medical devices? No, . Insulin pumps must be removed before entering the procedure room. Do you wear Neulasta Onpro? No. If yes, the device must be removed before entering the procedure room. Do you use CPAP or BPAP? No. Labs: Lab-work needs to be drawn? No.. Railroad Auditor/Transportation: How will you be arriving for your procedure? Private car. You will need a responsible adult to accompany you to and from the procedure. Your dairy truck driver is required to stay with you until you are taken into the procedure room. Call [phone] for questions [facility]11-04-2024 Miscellaneous Notes* Telephone Encounter - Estrella Mcmillan RN - 08/24/2024 3:07 PM EST You are scheduled for a abscess drainage catheter exchange, On 08/25/2024. You are to arrive at 9 15 am and [facility]: [facility]: Radiology Outpatient Desk [id number] Diet: Do not eat any solid food after midnight the day of/night before your procedure. You may drink clear liquids until , which means black coffee, apple juice, black tea, or water only. Medications: Ok to take your cardiac, blood pressure, anti-seizure, and chronic pain medications with a sip of water, please take prior to arrival. Bring your current medication list. RADIOLOGY RECOMMENDS THESE MEDICATION RESTRICTIONS: DO NOT STOP XARALTO FOR THIS PROCEDURE Special concerns: Do you have any attached medical devices? No, . Insulin pumps must be removed before entering the procedure room. Do you wear Neulasta Onpro? No. If yes, the device must be removed before entering the procedure room. Do you use CPAP or BPAP? No. Labs: Lab-work needs to be drawn? No.. Railroad Auditor/Transportation: How will you be arriving for your procedure? Private car. You will need a responsible adult to accompany you to and from the procedure. Your dairy truck driver is required to stay with you until you are taken into the procedure room. Call [phone] for questions documented in this encounterRiverside [facility] Hospital11-04-2024 Miscellaneous Notes* Telephone Encounter - Chelsie Kolb RN - 08/24/2024 11:45 AM EST Called and spoke to patient. Explained to him that Dr. Norman needs to sign the order for IR drain exchange and then IR should be calling him to schedule. Dr. Norman did nor order a new CT scan so I assume he does not need to worry about it tat this time. I will let him know when I hear anything. * Telephone Encounter - Valencia Cadena - 08/24/2024 10:24 AM ESTSummary: scheduling Sent message to Dr. Escobar. Need order * Telephone Encounter - Kraig Herring - 08/24/2024 9:58 AM EST Patient seeking update. Has questions about Cat scan and if he needs it done. I informed pt that IRshould be giving the nurse a call back and or give him a call. He would like an update on what's going on. #: [phone] * Telephone Encounter - Chelsie Kolb RN - 08/24/2024 9:48 AM EST Based on message from Dr. Norman this weekend which states that Michael's IR drain is broken and malfunctioning and needs to be replaced, I called and left a message for IR and provided them with patient's name, MRN and phone number along with my phone number. documented in this encounterR[facility]11-04-2024 Telephone encounter Note * Telephone Encounter - Chelsie Kolb RN - 08/24/2024 11:45 AM EST Called and spoke to patient. Explained to him that Dr. Norman needs to sign the order for IR drain exchange and then IR should be calling him to schedule. Dr. Norman did nor order a new CT scan so I assume he does not need to worry about it tat this time. I will let him know when I hear anything. [facility]11-04-2024 Telephone encounter Note* Telephone Encounter - Valencia Cadena - 08/24/2024 10:24 AM ESTSummary: scheduling Sent message to Dr. Escobar. Need order [facility]11-04-2024 Telephone encounter Note* Telephone Encounter - Kraig Herring - 08/24/2024 9:58 AM EST Patient seeking update. Has questions about Cat scan and if he needs it done. I informed pt that IRshould be giving the nurse a call back and or give him a call. He would like an update on what's going on. #: [phone] [facility]11-04-2024 Telephone encounter Note* Telephone Encounter - Chelsie Kolb RN - 08/24/2024 9:48 AM EST Based on message from Dr. Norman this weekend which states that Michael's IR drain is broken and malfunctioning and needs to be replaced, I called and left a message for IR and provided them with patient's name, MRN and phone number along with my phone number. [facility]10-30-2024 Telephone encounter Note* Telephone Encounter - Minal Corye RN - 08/19/2024 9:31 AM EDT [facility] Rn called to inquire on labs needing completed for BRM OV 09/01/24. Labs faxed to complete in pt home week of 08/24/24. Lab appt 08/25/24 canceled. RN will fax results for BRM appt Minal Corey RN [facility]10-30-2024 Miscellaneous Notes* Telephone Encounter - Minal Corey RN - 08/19/2024 9:31 AM EDT [facility] Rn called to inquire on labs needing completed for BRM OV 09/01/24. Labs faxed to complete in pt home week of 08/24/24. Lab appt 08/25/24 canceled. RN will fax results for BRM appt Minal Corey RN documented in this encounterRiverside [facility] Hospital10-29-2024 NoteHNO ID: [id number] Author: SANDRINE DOS SANTOS LSW Service: Care Management Author Type: E Commerce Developer Type: Care Mgt Progress Note Filed: 08/18/2024 14:39 Note Text: CARE MANAGEMENT DISCHARGE NOTE SERVICE DATE: August 18, 2024 SERVICE TIME: 11:30 Admission Date: 08/14/2024 LOS: 4 days Discharge Arrangement Discharge Arrangement: Home with Home Health Services Arranged Medical Services: Skilled Home Health Care Type: Home Health Agency, Physical Therapy, Occupational Therapy Provider Name: [facility] Caregiver Assessment Caregiver is ready, willing and able to meet the patient's needs as recommended by the inter-professional team: Yes Name of Caregiver: Transportation Arrangements Transportation Arrangements: Car Handoff Communication: Handoff to: Primary Care Physician Primary Care Physician Name/Phone: Lorenzo Marin DO [phone] Additional Information: Delivery today and SOC around 6pm Discharge Information Row Name ED to Hosp-Admission (Current) from 08/14/[address] Home Health Care Agency [facility] Phone/ SIGNATURE: DAI Roberts PATIENT NAME: Mervat Grayson DATE: August 18, 2024 TIME: 2:38 PM CONTACT #: [phone] [id number] NoteHNO ID: [id number] Author: DARELL SANTIAGO MD Service: Colorectal Author Type: Resident Type: Progress Notes Filed: 08/18/2024 10:20 Note Text: Colorectal Surgery Progress Note Name: Mervat Grayson Bed: [address] Date: 08/18/2024 ASSESSMENT AND PLAN 73 Y/O M w/ PMHx s/f PE (xarelto), RA (on prednisone 5mg daily), T3N0 rectal cancer diagnosed in 2021 s/p capecitabine and pelvic radiation (completed 11/19/2022)who is s/p lap R hemicolectomy and umbilical hernia repair (07/23) after he was found to have cecal perforation after surveillance colonoscopy (07/21) w/ post-op course c/b ileus. At his outpatient clinic f/u, he was c/o severe RLQ pain and frequent loose BM, prompting admission to the hospital for further evaluaiton. W/u s/f CT A/P demonstrating multiple fluid collections c/f anastomotic leak today and is now s/p IR drain x 2 (08/15) Plan: Neuro: Pain control: multimodal - tylenol q8H, oxycodone 2.5mg q4H PRN, IV dilaudid breakthrough Cardiac: Vitals HDS. Home meds: reviewed - on home carvedilol; resume xarelto on day of discharge Respiratory: Incentive spirometry. Minimize use of supplemental O2. GI: Diet: Continue regular diet. Antiemetic available. FEN: IV fluids heplock'd. Electrolytes replete PRN. Renal: Urine output adequate. Creatinine wnl. ID: Continue IV zosyn - ID c/s: IV Zosyn on discharge - needs COPAT Heme: Hemoglobin stable. No clinical evidence of bleeding. Endo: Glucose wnl. Lines/Drains: RADHA x 2 - will remain at time of discharge Prophylaxis: IPCs, lovenox 40mg daily -> resume xarelto on day of discharge Encourage ambulation, PT/OT Dispo: D/c home today once COPAT completed - Discharge with both drains in place and a repeat CT with PO and IV contrast in 2 weeks, antibiotics will need to continue during that time period Darell Santiago MD General Surgery Resident Blue Team Pager: [phone] General Surgery Colorectal Surgery On-Call Pager: [phone] Subjective No acute events overnight AF HDS on RA Pain: Controlled Tolerating regular diet - N/V: No Bowel function: Yes Ambulating: Yes Objective Vital Signs BP 121/77 Pulse 70 Temp 36.9 ?C (98.4 ?F) (Oral) Resp 12 Ht 188 cm (6' 2 ) Wt 108.3 kg (238 lb 12.1 oz) SpO2 96% BMI 30.65 kg/m? Input and Output Date 08/14/24 0700 - 08/15/24 0659 08/15/24 0700 - 08/16/24 0659 Shift 8696-5965 1084-3070 2806-8992 24 Hour Total 0658-9152 3711-7751 5655-3719 24 Hour Total INTAKE PO 60 60 PO 60 60 Blood Products 352 352 Infusion Complete Volume (mL) (RBC Transfusion Instruction) 352 352 Shift Total 60 352 412 OUTPUT Urine 250 675 925 Void (ml) 250 675 925 Emesis 0 0 Emesis (ml) 0 0 Tubes 25 30 55 Drain/Tube Output (Drain/Tube 08/14/24 1733 [facility] Pelvic Drain Left Anterior Pelvis Drain #1) 5 20 25 Drain/Tube Output (Drain/Tube 08/14/24 1749 Pelvic Drain Right Anterior Pelvis Drain #2) 20 10 30 # of BMs Number of BMs 0 x 0 x Shift Total 275 705 980 Weight (kg) 111.1 108.3 108.3 108.3 108.3 108.3 108.3 108.3 Physical Exam GENERAL: awake, alert, in no acute distress SKIN: non-jaundiced, warm, dry LUNGS: nonlabored breathing on RA, no shortness of breath CARDIAC: warm and well perfused throughout, regular rate ABDOMEN: soft, non-tender, non-distended - RLQ RADHA: purulent brown output - LLQ RADHA: thin, clear brown liquid output (scant) Positive Micro-30 Days Procedure Component Value Units Date/Time Abscess and Wound Culture with Gram Stain [[id number]] (Abnormal) Collected: 08/14/24 1729 Order Status: Completed Specimen: Drainage/Purulent/Non-sterile Fluid from Wound (specify location in comments) Updated: 08/17/24 1151 Culture, Wound Many Escherichia coli Comment: Refer to specimen collected on 08/14/2024 at 1703 ([id number]) Moderate Klebsiella pneumoniae Comment: Refer to specimen collected on 08/14/2024 at 1703 ([id number]) Few Enterococcus faecalis Comment: No susceptibility testing done. Call lab within 72 hours to initiate work-up if clinically indicated. Cephalosporins, clindamycin, and TMP-SMX are not effective for the treatment of enterococcal infections. Gram Stain Rare Gram positive cocci Rare Gram negative bacilli Rare Gram positive bacilli No Polymorphonuclear Leukocytes Narrative: This test was developed and its performance characteristics determined by the [facility] [place] ([facility]). It has not been cleared or approved by the FDA. [facility] is regulated under CLIA as qualified to perform high-complexity testing. This test is used for clinical purposes. It should not be regarded as investigational or for research. Abscess and Wound Culture with Gram Stain [[id number]] (Abnormal) (Susceptibility) Collected: 08/14/24 1703 Order Status: Completed Specimen: Drainage/Purulent/Non-sterile F (more content not included)...[facility] [id number] NoteHNO ID: [id number] Author: RAOUL REAGAN RN Service: Care Management Author Type: Registered Nurse Type: Dorcas Mgt Progress Note Filed: 08/17/2024 17:06 Note Text: CARE MANAGEMENT PROGRESS NOTE SERVICE DATE: 08/17/2024 SERVICE TIME: 1705 LOS: 3 days Needs Prior to Discharge: To Be Determined [facility] pharmacy accepted for IONA. Rx sent to agency and anticipate delivery tomorrow. Awaiting final confirmation from [facility] on SOC tomorrow around 1800. [facility] still reviewing, other [facility] referrals declined d/t staff or out of service area. SIGNATURE: Raoul Reagan RN PATIENT NAME: Mervat Grayson DATE: August 17, 2024 TIME: 5:05 PM PAGER/CONTACT #: [phone] [id number] NoteHNO ID: [id number] Author: RAOUL REAGAN RN Service: Care Management Author Type: Registered Nurse Type: Care Mgt Initial Assessment Filed: 08/17/2024 15:24 Note Text: CARE MANAGEMENT: ASSESSMENT AND DISCHARGE PLAN SERVICE DATE: August 17, 2024 SERVICE TIME: 1500 PCP: Lorenzo Marin DO Primary Contact: Extended Emergency Contact Information Primary Emergency Contact: Mini Grayson Mobile Relation: Spouse Secondary Emergency Contact: Fabricio Bose Address: [facility] [address] [place] [id number] [facility] Mobile Relation: Daughter Admission Status: Inpatient Insurance Provider: MEDICARE A AND B Discharge Planning requested by: Per Department Practice Potential Transition Plans Home Care;Home Care Pharmacy Advance Directives Current Advance Directive: Living Will In Chart: No Current Living Arrangements and Support Lives with: Spouse/significant other Type of Residence: Private Residence (House) Does the patient have to climb stairs at home?: Yes;stairs outside the home (has ramp) Support: Spouse/significant other How do you manage to accomplish the following: Independent: Ambulation;Bathe/Shower;Dress;Meals/Meal Prep;Going to the bathroom;Medication Management;Transportation to appointments/community Current Services/Equipment Current Post-Acute Service(s): None Discharge Planning Patient Goal(s): Be able to go home [place] of Choice Explained: [place] of Choice Given: Yes Level of Care Discussed: Home Care Are you interested in bedside delivery of your medications? Yes Discharge Planning Participant(s): Spouse/significant other;Patient Patient/Family Comments: Caregiver Assessment: Caregiver is ready, willing and able to meet the patient's needs as recommended by the inter-professional team: Yes Name of Caregiver: Spouse Mini Transport at Discharge: Transportation Arrangements: Car Destination: home residence Needs Prior to Discharge: Needs Prior to Discharge: To Be Determined Post-Acute Discharge Plan: Admit from home with Intraabdominal Fluid Collection. Patient lives with his spouse, Mini, who is a retired RN. He's independent of ADLs and iADLs. Will need IONA and HHC at DC. Awaiting rx from ID for Zosyn q6h. Discussed with patient and spouse bedside who did not have preference on either agency for HHC and home pharmacy. Referrals sent on patient behalf. Patient lives in [place]. Spouse will provide [place] transport home when ready. No social, safety or financial concerns identified. CM remains available for plan of care and discharge planning needs as they arise. HIGH RISK READMISSION NOTE: HAS PATIENT BEEN READMITTED WITHIN THE PAST 7 DAYS?: no 30-DAY READMISSION RISK (%) of 40 OR ABOVE?: no READMISSION SCORE: 22 SDOH QUESTIONS REVIEWED WITH PATIENT?: yes DATE OF LAST ADMISSION: 07/23 PT STATED REASON FOR ADMISSION: Told to come in after surgical f/u appt PATIENT GOALS: Go home, clear infection Reports having better appetite now INTERVENTIONS IMPLEMENTED TO PREVENT READMISSION: Will return home with HHC and IONA. Spouse is RN and can assist with drains and IONA administration PCP OR F/U VISIT ARRANGED ? IF YES, DATE AND PROVIDER: 09/01 with hematology DISCHARGE PLAN: [facility] SIGNATURE: Raoul Reagan RN PATIENT NAME: Mervat Grayson DATE: August 17, 2024 TIME: 3:14 PM CONTACT #: [id number] NoteHNO ID: [id number] Author: DARELL SANTIAGO MD Service: Colorectal Author Type: Resident Type: Progress Notes Filed: 08/17/2024 11:40 Note Text: Colorectal Surgery Progress Note Name: Mervat Grayson Bed: [id number] Date: 08/17/2024 ASSESSMENT AND PLAN 73 Y/O M w/ PMHx s/f PE (xarelto), RA (on prednisone 5mg daily), T3N0 rectal cancer diagnosed in 2021 s/p capecitabine and pelvic radiation (completed 11/19/2022)who is s/p lap R hemicolectomy and umbilical hernia repair (07/23) after he was found to have cecal perforation after surveillance colonoscopy (07/21) w/ post-op course c/b ileus. At his outpatient clinic f/u, he was c/o severe RLQ pain and frequent loose BM, prompting admission to the hospital for further evaluaiton. W/u s/f CT A/P demonstrating multiple fluid collections c/f anastomotic leak today and is now s/p IR drain x 2 (08/15) Plan: Neuro: Pain control: multimodal - tylenol q8H, oxycodone 2.5mg q4H PRN, IV dilaydid breakthrough Cardiac: Vitals HDS. Home meds: reviewed - on home carvedilol; holding xarelto, tentatively planning to resume on day of discharge Respiratory: Incentive spirometry. Minimize use of supplemental O2. GI: Diet: Continue regular diet. Antiemetic available. FEN: IV fluids heplock'd. Electrolytes replete PRN. Renal: Urine output adequate. Creatinine wnl. ID: Continue IV zosyn - ID c/s: f/u final recs for abx on discharge Heme: Hemoglobin stable. No clinical evidence of bleeding. Endo: Glucose wnl. Lines/Drains: RADHA x 2 - will remain at time of discharge Prophylaxis: IPCs, lovenox 40mg daily -> resume xarelto on day of discharge Encourage ambulation, PT/OT Dispo: RNF -> tentative d/c home today pending ID recs - Discharge with both drains in place and a repeat CT with PO and IV contrast in 2 weeks, antibiotics will need to continue during that time period MD Darell Mary MD General Surgery Resident Blue Team Pager: [phone] General Surgery Colorectal Surgery On-Call Pager: [phone] Subjective No acute events overnight AF HDS on RA Pain: Controlled Tolerating regular diet - N/V: No Bowel function: Yes Ambulating: Yes Objective Vital Signs BP 133/78 Pulse 71 Temp 36.6 ?C (97.9 ?F) (Oral) Resp 11 Ht 188 cm (6' 2 ) Wt 108.3 kg (238 lb 12.1 oz) SpO2 91% BMI 30.65 kg/m? Input and Output Date 08/14/24 07 - 08/15/24 0659 08/15/24 07 - 08/16/24 0659 Shift 7706-2835 1606-1811 9423-4068 24 Hour Total 9109-4464 6175-9832 0106-4183 24 Hour Total INTAKE PO 60 60 PO 60 60 Blood Products 352 352 Infusion Complete Volume (mL) (RBC Transfusion Instruction) 352 352 Shift Total 60 352 412 OUTPUT Urine 250 675 925 Void (ml) 250 675 925 Emesis 0 0 Emesis (ml) 0 0 Tubes 25 30 55 Drain/Tube Output (Drain/Tube 08/14/24 1733 [facility] Pelvic Drain Left Anterior Pelvis Drain #1) 5 20 25 Drain/Tube Output (Drain/Tube 08/14/24 1749 Pelvic Drain Right Anterior Pelvis Drain #2) 20 10 30 # of BMs Number of BMs 0 x 0 x Shift Total 275 705 980 Weight (kg) 111.1 108.3 108.3 108.3 108.3 108.3 108.3 108.3 Physical Exam GENERAL: awake, alert, in no acute distress SKIN: non-jaundiced, warm, dry LUNGS: nonlabored breathing on RA, no shortness of breath CARDIAC: warm and well perfused throughout, regular rate ABDOMEN: soft, non-tender, non-distended - RLQ RADHA: purulent brown output - LLQ RADHA: thin, clear brown liquid output (scant) Positive Micro-30 Days Procedure Component Value Units Date/Time Abscess and Wound Culture with Gram Stain [[id number]] (Abnormal) Collected: 08/14/241728 Order Status: Completed Specimen: Drainage/Purulent/Non-sterile Fluid from Wound (specify location in comments) Updated: 08/16/24 1539 Culture, Wound Many Escherichia coli Comment: Refer to specimen collected on 08/14/2024 at 1703 ([id number]) Few Klebsiella pneumoniae Gram Stain Rare Gram positive cocci Rare Gram negative bacilli Rare Gram positive bacilli No Polymorphonuclear Leukocytes Narrative: This test was developed and its performance characteristics determined by the [facility]'s [facility] Pathology and Laboratory Medicine [place] ([facility]). It has not been cleared or approved by the FDA. [facility] is regulated under CLIA as qualified to perform high-complexity testing. This test is used for clinical purposes. It should not be regarded as investigational or for research. Abscess and Wound Culture with Gram Stain [[id number]] (Abnormal) (Susceptibility) Collected: 08/14/24 170 Order Status: Completed Specimen: Drainage/Purulent/Non-sterile Fluid from Wound (specify location in comments) Updated: 08/17/24 0804 Culture, Wound Many Escherichia coli Few Klebsiella pneumoniae Comment: Susceptibility results to follow. Gram Stain Few Gram negative bacilli Rare Gram positive cocci Rare Gram positive b (more content not included)...[facility] [id number] NoteHNO ID: [id number] Author: RAYA PIERCE MD Service: Colorectal Author Type: Resident Type: Progress Notes Filed: 08/16/2024 08:35 Note Text: Colorectal Surgery Progress Note Name: Mervat Grayson Bed: [id number] Date: 08/16/2024 ASSESSMENT AND PLAN Mervat Grayson is a 73 year old male with PMH notable for PE (xarelto), RA (on prednisone 5mg daily), T3N0 rectal cancer diagnosed in 2021 s/p capecitabine and pelvic radiation (completed 11/19/2022). The patient had a surveillance colonoscopy on 07/21 c/b cecal perforation and underwent lap Right hemicolectomy on 07/23. Post op course was complicated by ileus. He was seen in the clinic yesterday and he was expressing concern for poor recovery post op due to poor oral intake secondary to severe RLQ pain and frequent loose BM. Labs showed leukocytosis and CT A/P showed three fluid collections with concern for anastomotic leak today 2 Days Post-Op Of IR drainage x2 . Plan: - Regular diet - ID consult, appreciate recs - Hold xarelto today - CBC in a.m - PO and IV pain control - Antiemetics: Zofran - DVT PPX with lovenox 40mg OD - Encourage ambulation -Wean O2 - PT OT for dispo planning - Dispo pending PT and final abx recs. Raya Pierce MD General Surgery Resident Blue Team Pager: [phone] General Surgery Colorectal Surgery On-Call Pager: [phone] Patient discussed with staff Subjective No acute events overnight HDS Pain: Controlled N/V: No Bowel function: Yes Ambulating: Yes Objective Vital Signs BP 133/85 Pulse 72 Temp 36.7 ?C (98.1 ?F) (Oral) Resp 18 Ht 188 cm (6' 2 ) Wt 108.3 kg (238 lb 12.1 oz) SpO2 97% BMI 30.65 kg/m? Input and Output Date 08/14/24 07 - 08/15/24 0659 08/15/24 0700 - 08/16/24 0659 Shift 1048-4689 7939-1325 7909-6789 24 Hour Total 3448-4127 6919-3291 8640-4483 24 Hour Total INTAKE PO 60 60 PO 60 60 Blood Products 352 352 Infusion Complete Volume (mL) (RBC Transfusion Instruction) 352 352 Shift Total 60 352 412 OUTPUT Urine 250 675 925 Void (ml) 250 675 925 Emesis 0 0 Emesis (ml) 0 0 Tubes 25 30 55 Drain/Tube Output (Drain/Tube 08/14/24 1733 [facility] Pelvic Drain Left Anterior Pelvis Drain #1) 5 20 25 Drain/Tube Output (Drain/Tube 08/14/24 1749 Pelvic Drain Right Anterior Pelvis Drain #2) 20 10 30 # of BMs Number of BMs 0 x 0 x Shift Total 275 705 980 Weight (kg) 111.1 108.3 108.3 108.3 108.3 108.3 108.3 108.3 Physical Exam GENERAL: awake, alert, in no acute distress SKIN: non-jaundiced, warm, dry LUNGS: nonlabored breathing on RA, no shortness of breath CARDIAC: warm and well perfused throughout, regular rate ABDOMEN: soft, non-tender, non-distended, Drains x 2 SSA Positive Micro-30 Days Procedure Component Value Units Date/Time Abscess and Wound Culture with Gram Stain [[id number]] (Abnormal) Collected: 08/14/241728 Order Status: Completed Specimen: Drainage/Purulent/Non-sterile Fluid from Wound (specify location in comments) Updated: 08/15/24330 Gram Stain Rare Gram positive cocci Rare Gram negative bacilli Rare Gram positive bacilli No Polymorphonuclear Leukocytes Abscess and Wound Culture with Gram Stain [[id number]] (Abnormal) Collected: 08/14/241702 Order Status: Completed Specimen: Drainage/Purulent/Non-sterile Fluid from Wound (specify location in comments) Updated: 08/15/24332 Gram Stain Few Gram negative bacilli Rare Gram positive cocci Rare Gram positive bacilli Moderate Polymorphonuclear leukocytes Recent Labs 08/16/24 0609 08/15/24 0421 08/14/24 1815 WBC 12.82* 13.47* 14.00* HB 7.6* 7.4* 6.9* HCT 24.0* 22.9* 21.8* PLT 520* 476* 559* NA 139 140 138 K 4.0 3.5* 3.4* CHLOR 103 103 100 CO2 27 26 BUN 12 12 12 CREAT 1.05 1.00 0.87 GLUC 103* 92 83 MG 2.0 2.0 -- Recent Labs 08/14/24 1815 APTT 29.2 INR 1.2 Imaging ReviewedClover Hill [id number] NoteHNO ID: [id number] Author: ANNA BARRON MD Service: Colorectal Author Type: Resident Type: Progress Notes Filed: 08/15/2024 08:41 Note Text: Colorectal Surgery Progress Note Name: Mervat Grayson Bed: [facility]3B21/[facility] Date: 08/15/2024 ASSESSMENT AND PLAN Mervat Grayson is a 73 year old male with PMH notable for PE (xarelto), RA (on prednisone 5mg daily), T3N0 rectal cancer diagnosed in 2021 s/p capecitabine and pelvic radiation (completed 11/19/2022). The patient had a surveillance colonoscopy on 07/21 c/b cecal perforation and underwent lap Right hemicolectomy on 07/23. Post op course was complicated by ileus. He was seen in the clinic yesterday and he was expressing concern for poor recovery post op due to poor oral intake secondary to severe RLQ pain and frequent loose BM. Labs showed leukocytosis and CT A/P showed three fluid collections with concern for anastomotic leak today 1 Day Post-Op Of IR drainage x2 . Plan: - Regular diet - HLIV - ID consult, appreciate recs - Hold xarelto today - CBC in a.m - PO and IV pain control - Antiemetics: Zofran - DVT PPX with lovenox 40mg OD - Encourage ambulation -Wean O2 - PT OT MD Anna Nathan MD Colorectal Surgery Fellow Colorectal Surgery Pager (Weekdays 6 AM - 6 PM): [phone] For Nights and Weekends, please page the On-call Surgery pager: [phone] Patient discussed with staff Subjective No acute events overnight Transfused 1U PRBCs for Hb of 6.9 Pain: Controlled N/V: No Bowel function: Yes Ambulating: Yes Objective Vital Signs BP 125/71 Pulse 73 Temp 36.8 ?C (98.2 ?F) (Oral) Resp 12 Ht 188 cm (6' 2 ) Wt 108.3 kg (238 lb 12.1 oz) SpO2 97% BMI 30.65 kg/m? Input and Output Date 08/14/24 07 - 08/15/24 0608/15/24 07 - 08/16/24 0659 Shift 9117-9736 8554-0714 5395-0060 24 Hour Total 0766-0250 5763-0631 9247-9390 24 Hour Total INTAKE PO 60 60 PO 60 60 Blood Products 352 352 Infusion Complete Volume (mL) (RBC Transfusion Instruction) 352 352 Shift Total 60 352 412 OUTPUT Urine 250 675 925 Void (ml) 250 675 925 Emesis 0 0 Emesis (ml) 0 0 Tubes 25 30 55 Drain/Tube Output (Drain/Tube 08/14/24 1733 [facility] Pelvic Drain Left Anterior Pelvis Drain #1) 5 20 25 Drain/Tube Output (Drain/Tube 08/14/24 1749 Pelvic Drain Right Anterior Pelvis Drain #2) 20 10 30 # of BMs Number of BMs 0 x 0 x Shift Total 275 705 980 Weight (kg) 111.1 108.3 108.3 108.3 108.3 108.3 108.3 108.3 Physical Exam GENERAL: awake, alert, in no acute distress SKIN: non-jaundiced, warm, dry LUNGS: nonlabored breathing on 2L NC, no shortness of breath CARDIAC: warm and well perfused throughout, regular rate ABDOMEN: soft, non-tender, non-distended, Drains x 2 SSA Positive Micro-30 Days Procedure Component Value Units Date/Time Abscess and Wound Culture with Gram Stain [[id number]] (Abnormal) Collected: 08/14/24 172 Order Status: Completed Specimen: Drainage/Purulent/Non-sterile Fluid from Wound (specify location in comments) Updated: 08/15/24 033 Gram Stain Rare Gram positive cocci Rare Gram negative bacilli Rare Gram positive bacilli No Polymorphonuclear Leukocytes Abscess and Wound Culture with Gram Stain [[id number]] (Abnormal) Collected: 08/14/24 170 Order Status: Completed Specimen: Drainage/Purulent/Non-sterile Fluid from Wound (specify location in comments) Updated: 08/15/24 0333 Gram Stain Few Gram negative bacilli Rare Gram positive cocci Rare Gram positive bacilli Moderate Polymorphonuclear leukocytes Recent Labs 08/15/24 0421 08/14/24 1815 08/13/24 1509 WBC 13.47* 14.00* 13.68* HB 7.4* 6.9* 7.3* HCT 22.9* 21.8* 24.0* PLT 476* 559* 634* NA 140 138 138 K 3.5* 3.4* 3.3* CHLOR 103 100 100 CO2 27 26 27 BUN 12 12 11 CREAT 1.00 0.87 0.91 GLUC 92 83 94 MG 2.0 -- -- Recent Labs 08/14/24 181 APTT 29.2 INR 1.2 Imaging ReviewedClover Hill HospitalEffuscws39-55-3146 History of Present illness Narrative* Radha Niño RN - 08/13/2024 3:00 PM EDT Radiology Service Progress Note DATE OF SERVICE: August 13, 2024 TIME: 2:54 PM PATIENT WEIGHT: 249 LBS PATIENT IDENTITY VERIFICATION COMPLETED USING TWO (2) STANDARD IDENTIFIERS: Name and Date of confirmed by patient verbally. FALL SCREENING: Has the patient had 2 falls in the last year or 1 fall with injury or currently using an Ambulatory Assistive Device (Walker, Cane, Wheelchair, Crutches, etc.)? No PATIENT GENDER DATA: Male ALLERGIES: Reviewed and unchanged CONTRAST ALLERGY: No EXAM: CT -CONTRAST INDUCED NEPHROPATHY RISK FACTORS: Patient age > 60 years CREATININE: Creatinine Date Value Ref Range Status 07/29/2024 0.83 0.73 - 1.22 mg/dL Final 07/28/2024 0.94 0.73 - 1.22 mg/dL Final 07/27/2024 1.08 0.73 - 1.22 mg/dL Final Estimated Glomerular Filtration Rate Date Value Ref Range Status 07/29/2024 94 >=60 mL/min/1.73m Final Comment: Estimated Glomerular Filtration Rate (eGFR) is calculated using the 2020 CKD-EPI creatinine equation. This equation utilizes serum creatinine, sex, and age as parameters. The creatinine assay has traceable calibration to isotope dilution- mass spectrometry. Refer to KDIGO guidelines for clinical interpretation. In patients with unstable renal function, e.g. those with acute kidney injury, the eGFRmay not accurately reflect actual GFR. eGFR- Date Value Ref Range Status 08/04/2018 >60 Final P.O.C.T. RESULTS: N/A August 13, 2024 TREATMENT: No Hydration needed. IV SITE: Ambulatory: A power injectable Mediport was accessed in the Right chest with a 1 inch 20 gauge needle. Blood Return, Flushed easily with normal saline, Good Blood Return Post Injection, Flushed with 20 cc saline, Needle Removed, and No Complications. PowerPort placed 12/20/22 IV SITE APPEARANCE: Clean,Dry and Intact SIGNATURE: Radha Niño RN PATIENT NAME: Mervat Grayson DATE: August 13, 2024 TIME: 2:54 PM * Jerrica Hargrove RT(R) - 08/13/2024 3:00 PM EDT Radiology Service Progress Note PATIENT NAME: Mervat Grayson DATE OF SERVICE: August 13, 2024 TIME: 3:24 PM PATIENT IDENTITY VERIFICATION COMPLETED USING TWO (2) IDENTIFIERS: Name and Date of confirmedby patient verbally. FALL SCREENING: Has the patient had 2 falls in the last year or 1 fall with injury or currently using an Ambulatory Assistive Device (Walker, Cane, Wheelchair, Crutches, etc.)? Yes, Patient High Riskfor Falls What interventions were put in place to prevent falls during this visit? Instructed Patient to Callfor Help if Needed, Offered Assistance with Transfers/Clothing, Instructed Patient to Remain Seated(Not on Exam Table) Until Exam, and Increased Observations by Caregivers PATIENT GENDER DATA: Male PATIENT RELEVANT IMPLANT DATA REVIEWED: Yes PATIENT PRESENTS WITH AN IMPLANTABLE OR ATTACHED DRAINAGE ENGINEER: No RADIOLOGY DEPARTMENT: CT; Exam(s) Completed: Abdomen/Pelvis PERIPHERAL IV DATA: Site assessment: Clean,Dry and Intact, Site disposition Discontinued port injection by Radha Niño RN SIGNED BY: RT Lloyd(R) August 13, 2024 3:24 PM documented in this encounterR[facility]10-24-2024 [facility]-2024 NoteW[facility] Center10-24-2024 Nurse Note* Natividad Alvares OCCA - 08/13/2024 12:40 PM EDT What is the reason for your visit today? s/p a Laparoscopic Right Colectomy, Umbilical Hernia Repair on 07/23/[address] Norman for Colon perforation s/p colonoscopy Who is your referring physician? Are you having poor oral intake? NO Have you had unintentional weight loss of 15 lbs/7 Kg in the last 3-6 months? NO Bowels: diarrhea, food goes right through him Wound: clean & dry Temperature: No Drains: No [facility]10-24-2024 History of Present illness Narrative* Celeste Andrews APRN.ARACELY - 08/13/2024 12:40 PM EDT COLORECTAL SURGERY August 13, 2024 Mervat Grayson 73 year old This consult was requested by Dr. Norman and my final recommendations will be communicated to the requesting health care provider by way of the shared medical record for internal providers or letter via the [employer] Postal Service for external providers. Chief Complaint: post-op visit History of Present Illness: Mervat Grayson is a 73 year old male s/p a Laparoscopic Right Colectomy, Umbilical Hernia Repair on 07/23/[address] Norman for Colon perforation s/p colonoscopy. He presents today for his post-op visit. He appears fatigued and tired today and uses a walker to mobilize. Since he has been home he has been making very slow progress. His is out of town and his daughter has been taking careof him. He denies fevers but has been having intermittent chills and cold hands. No nausea or vomiting but he is concerned to eat because it causes him to have a bowel movement very quickly. At timeshe is also afraid to eat because of the cramping pain that occurs after. He has tried 5-6 small meals per day but each time he does he feels the urge to go to the bathroom, the pain moves across his abdomen. All his stools are loose and often watery, cramping pain with bowel movements. Denies bloody bowel movements. He has a frequent urge to defecate, will get up to the bathroom without a BM, return to bed and then have incontinence in bed. He also endorses a constant worsening right sided/RLQ pointed pain . This pain is ongoing and bothersome. He recently saw his PCP for evaluation who recommended bentyl for his crampy abdominal pain. We discussed concerns today and the plan for lab work, CDiff rule out (due to frequent watery BMs and urgency) and a further plan after abdominal exam. Surgical Pathology FINAL DIAGNOSIS A. Soft tissue, umbilical region, excision: - Benign fibroadipose and fibromembranous tissue with acute inflammation, consistent with hernia sac. B. Right colon, terminal ileum, and appendix, right hemicolectomy: - Dilated colon with transmural suppurative inflammation and necrosis, consistent with ischemic bowel injury. - Appendix with fibrolipomatous obliteration and acute serositis. - Small bowel with acute serositis. - Benign lymph nodes. PAST MEDICAL HISTORY Diagnosis Date Acute low back pain with possible spinal stenosis of less than six weeks' duration Adenocarcinoma of rectum (HCC) Arthritis Bilateral renal cysts peripelvic BPH with urinary obstruction Cholelithiasis History of kidney stones Non-ischemic cardiomyopathy (HCC) Perforation bowel (HCC) 07/29/2024 Pulmonary emboli (HCC) 2019 left lower lobe RA (rheumatoid arthritis) (HCC) PAST SURGICAL HISTORY Procedure Laterality Date COLONOSCOPY HAMMERTOE REVISION, ONE TOE HEMORRHOID SURGERY HX HERNIA REPAIR HX LITHOTRIPSY PROC UNILATERAL REMV CATARACT EXTRACAP,INSERT LENS Current Outpatient Medications Medication Sig Dispense Refill rivaroxaban (XARELTO) 20 mg tablet Take 1 tablet by mouth once daily. Patient should start on July 30, 2024. 90 tablet 3 ondansetron (ZOFRAN) 4 mg tablet Take 1 tablet by mouth every 8 hours as needed for nausea/vomiting. 20 tablet 1 calcium carbonate (CALCIUM 600 ORAL) Take 1 tablet by mouth once daily. glucosamine/chondr perez A sod (GLUCOSAMINE-CHONDROITIN) 1,500-1,200 mg/30 mL liqd Take by mouth once daily. predniSONE (DELTASONE) 5 mg tablet Take 5 mg by mouth once daily. valsartan (DIOVAN) 80 mg tablet Take 80 mg by mouth once daily. carvedilol (COREG) 6.25 mg tablet Take 6.25 mg by mouth twice daily with meals. tamsulosin ER (FLOMAX) 0.4 mg cap Take [...] Never Smokeless tobacco: Never Vaping Use Vaping status: Never Used Substance Use Topics Alcohol use: Yes Comment: rarely Drug use: No Physical Exam: BP 131/76 (BP Site: Right Arm, BP Position: Sitting, BP Cuff Size: Regular Adult) Pulse 91 Temp36.3 C (97.3 F) SpO2 95% General Appearance: fatigued and pale, alert, in no acute distress, appears uncomfortable. Abdomen: distended, semi-soft, pain across abdomen but worse on the right lower quadrant and mid abdomen he described as 4/10. Bilateral lateral flanks are also sore/tender with exam. Incisions are healing well, no concern for incisional infection. After abdominal exam decision was made to order CT scan. Assessment Assessment and Plan: Mervat Grayson is a 73 year old male s/p a Laparoscopic Right Colectomy, Umbilical Hernia Repair on 07/23/2024. -CBC and BMP today. CDiff rule out. -CT abdomen pelvis today due to ongoing abdominal pain and distension. -continue lifting and activity restrictions for 4-6 weeks post-op. -further follow up pending lab work, CDiff sample and CT AP, likely close follow up pending symptoms. The CT AP resulted before this note was completed. Evaluated by myself and Dr. Norman. Results below. The patient was called regarding the CT scan results and recommended to present to [facility] ED for admission and IV antibiotics. CT abdomen pelvis with IV contrast 08/13/2024 IMPRESSION: Postsurgical changes of right hemicolectomy with 3 fluid collections in the pelvis with enhancing dos santos, suspicious for abscesses. The right lower quadrant 1 is located immediately adjacent to the ileocolonic anastomosis and contains foci of air, suspicious for leak. Medical Decision Making: Data Reviewed: Tests & Documents Reviewed/ordered: Review of prior notes from hospitalization Review of prior operative reports Review of Pathology I have independently interpreted: n/a I have discussed Mervat Grayson's treatment plan and/or results with the patient, Dr. Norman. Risk of morbidity, mortality and/or complications of treatment plan: mike Andrews APRN.CNP Colorectal Surgery documented [facility] encounterR[facility]* Natividad Alvares OCCA - 08/13/2024 12:40 PM EDT What is the reason for your visit today? s/p a Laparoscopic Right Colectomy, Umbilical Hernia Repair on 07/23/[address] Norman for Colon perforation s/p colonoscopy Who is your referring physician? Are you having poor oral intake? NO Have you had unintentional weight loss of 15 lbs/7 Kg in the last 3-6 months? NO Bowels: diarrhea, food goes right through him Wound: clean & dry Temperature: No Drains: No documented in this encounterR[facility]10-17-2024 Telephone encounter Note * Telephone Encounter - Chelsie Kolb RN - 08/06/2024 3:18 PM EDT Called and spoke with patient. He reports he was getting a sharp pain after eating. He saw his PCP on 08/04 and discussed with him getting oxygen to wear at night, getting HHC set up through [employer] and possibly getting a prednisone dose pack to help with his ankle swelling. He states that he does not feel he is able to eat very much at one time so he is eating smaller meals aobut every 4 hours. He is urinating a decent amount josselin 3 hours. Denies emesis. States he has not had bowel movement in 4 days. Advised him to take a dose of Miralax today to try to produce a bowel movement. We discussed that we don't want him to become constipated. He will take Miralax today and tomorrow and will call me if this does not produce a bowel movement. [facility]10-17-[facility] Miscellaneous Notes* Telephone Encounter - Chelsie Kolb RN - 08/06/2024 3:18 PM EDT Called and spoke with patient. He reports he was getting a sharp pain after eating. He saw his PCP on 08/04 and discussed with him getting oxygen to wear at night, getting HHC set up through [employer] and possibly getting a prednisone dose pack to help with his ankle swelling. He states that he does not feel he is able to eat very much at one time so he is eating smaller meals aobut every 4 hours. He is urinating a decent amount josselin 3 hours. Denies emesis. States he has not had bowel movement in 4 days. Advised him to take a dose of Miralax today to try to produce a bowel movement. We discussed that we don't want him to become constipated. He will take Miralax today and tomorrow and will call me if this does not produce a bowel movement. 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 Pt states he had surgery and is feeling shortness of breath. Based on the chart, pt had surgery w/ Dr. Norman 07/22/2024. Attempted to call the patient. No answer. Left a detailed message. Advised him to go to the ER given SOB. Dr. Norman, please have your team follow up. 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 Pt states he had surgery and is feeling shortness of breath. Based on the chart, pt had surgery w/ Dr. Norman 07/22/2024. Attempted to call the patient. No answer. Left a detailed message. Advised him to go to the [facility] ER given SOB. Dr. Norman, please have your team follow up. Thank you, Raymond Casas RN [facility]10-15-2024 Telephone encounter Note* Telephone Encounter - Hoa Patel - 08/04/2024 10:22 AM EDT Patient contacted the office of Dr Norman to advise that he has an appointment with Dr Marin today and will be setting up home health care and ok to share medical information with Home Health Care provider Yash Green and provided Fax number to our office at this time. Thank you. Hoa Woodson [facility]10-15-2024 Miscellaneous Notes* Telephone Encounter - Hoa Patel - 08/04/2024 10:22 AM EDT Patient contacted the office of Dr Norman to advise that he has an appointment with Dr Marin today and will be setting up home health care and ok to share medical information with Home Health Care provider Yash Green and provided Fax number to our office at this time. Thank you. Hoa Woodson documented in this encounterRiverside [facility]10-10-2024 Telephone encounter Note * Telephone Encounter - Toshia Buenrostro - 07/30/2024 1:[address] scan, labs, and [facility] appointments on 08/04/2024. Spoke to patient & rescheduled on 08/25/2024@8:15 am, [facility] on 09/01/2024@10 am moved out a month. Toshia Buenrostro [facility]10-10-2024 Miscellaneous Notes* Telephone Encounter - Toshia Buenrostro - 07/30/2024 1:[address] scan, labs, and [facility] appointments on 08/04/2024. Spoke to patient & rescheduled on 08/25/2024@8:15 am, [facility] on 09/01/2024@10 am moved out a month. Toshia Buenrostro * Telephone Encounter - Denisha Duarte RN - 07/30/2024 12:42 PM EDT Pt discharged home from hospital yesterday after having surgery for a perforated bowel. Notes he isscheduled for CT next week and a follow up w/ Dr Anderson a week after. Asks if it is necessary to come in so soon. Discussed w/ Dr Anderson. instructs to cancel pt's appointments. Will see pt in 1 month and schedule scans at that time. Pt notified and verbalizes understanding. Clerical: Please cancel pt's CT and RV appointments. Pt will need to see BRM for labs and RV in 1 month. Thanks! Denisha Duarte RN documented in this encounterRiverside [facility] Hospital10-10-2024 Telephone encounter Note * Telephone Encounter - Denisha Duarte RN - 07/30/2024 12:42 PM EDT Pt discharged home from hospital yesterday after having surgery for a perforated bowel. Notes he isscheduled for CT next week and a follow up w/ Dr Anderson a week after. Asks if it is necessary to come in so soon. Discussed w/ Dr Anderson. instructs to cancel pt's appointments. Will see pt in 1 month and schedule scans at that time. Pt notified and verbalizes understanding. Clerical: Please cancel pt's CT and RV appointments. Pt will need to see [facility] for labs and RV in 1 month. Thanks! Denisha Durate RN [facility] Work Phone: [phone] NoteMicrobiology PROCEDURE: Blood Culture Charcoal [R1] SOURCE: Blood BODY SITE: Chest COLLECTED DATE/TIME: 07/22/2024 20:39 EDT RECEIVED DATE/TIME: 07/22/2024 23:15 EDT START DATE/TIME: 07/22/2024 23:15 EDT FREE TEXT SOURCE: Peripheral vein site #2 Jewels HERNANDEZ, Shamir Dailey. Jewels HERNANDEZ, Shamir Dailey. FINAL REPORTS Final Report [] Verified Date/Time: 07/30/2024 00:00 EDT No growth at 7 days. Performing Locations R1: This test was performed at: [facility], [address] [place] [address], [id number] [place] [address], HkorfzPromedica Flower HospitalComment on above:Performed By: #### [id number] #### [facility] [address] [place] [address] [id number] NoteMicrobiology PROCEDURE: Blood Culture Charcoal [R1] SOURCE: Blood BODY SITE: Chest COLLECTED DATE/TIME: 07/22/2024 20:39 EDT RECEIVED DATE/TIME: 07/22/2024 23:15 EDT START DATE/TIME: 07/22/2024 23:15 EDT FREE TEXT SOURCE: [facility] Jewels DO, Shamir S. Jewels DO, Shamir S. FINAL REPORTS Final Report [] Verified Date/Time: 07/30/2024 00:00 EDT No growth at 7 days. Performing Locations R1: This test was performed at: [facility], [address] [place] [address], [id number] [place] [address], TrslasPromedica Flower HospitalComment on above:Performed By: #### [id number] #### [facility] [address] [place] [address] [id number] NoteMicrobiology PROCEDURE: Blood Culture Charcoal [R1] SOURCE: Blood BODY SITE: Arm R COLLECTED DATE/TIME: 07/22/2024 20:19 EDT RECEIVED DATE/TIME: 07/22/2024 20:24 EDT START DATE/TIME: 07/22/2024 20:24 EDT FREE TEXT SOURCE: Peripheral vein site #1 Jewels DO, Shamir S. Jewels DO, Shamir S. FINAL REPORTS Final Report [] Verified Date/Time: 07/29/2024 21:00 EDT No growth at 7 days. Performing Locations R1: This test was performed at: [facility], [address] [place] [address], [id number] [place] [address], IsaspoPromedica Flower HospitalComment on above:Performed By: #### [id number] #### [facility] [address] [place] [address] [id number] NoteMicrobiology PROCEDURE: Blood Culture Charcoal [R1] SOURCE: Blood BODY SITE: Arm R COLLECTED DATE/TIME: 07/22/2024 20:19 EDT RECEIVED DATE/TIME: 07/22/2024 20:24 EDT START DATE/TIME: 07/22/2024 20:24 EDT FREE TEXT SOURCE: rt ac Jewels DO, Shamir S. Jewels DO, Shamir S. FINAL REPORTS Final Report [] Verified Date/Time: 07/29/2024 21:00 EDT No growth at 7 days. Performing Locations R1: This test was performed at: [facility], [address] [place] [address], [id number] [place] [address], RkztagPromedica Flower HospitalComment on above:Performed By: #### [id number] #### [facility] [address] [place] [address] [id number] NoteHNO ID: [id number] Author: SHAMIR DE LA TORRE MD Service: Colorectal Author Type: Resident Type: Progress Notes Filed: 08/06/2024 10:00 Note Text: Documentation Query Please clarify the relationship, if any, between cecal perforation and recent colonoscopy: {Please select the appropriate option:[id number]:: Cecal perforation due to recent colonoscopy , This document will become part of the patient's medical record.[facility] 07-29-2024 NoteHNO ID: [id number] Author: SHAMIR DE LA TORRE MD Service: Colorectal Author Type: Resident Type: Progress Notes Filed: 07/29/2024 11:53 Note Text: Blue Team Pager: [phone] General Surgery Colorectal Surgery On-Call Pager: [phone] COLORECTAL SURGERY PROGRESS NOTE Patient Name: Mervat Grayson Date: July 29, 2024 ASSESSMENT AND PLAN: Mervat Graysno is a 73 year old PMH notable for PE (xarelto), RA (on prednisone 5mg daily), T3N0 rectal cancer diagnosed in 2021 s/p capecitabine and pelvic radiation (completed 11/19/2022), who had surveillence colonoscopy on 07/21 with subsequent development of cecal perforation now s/p lap Right hemicolectomy 07/23 c/b ileus, NG tube inserted 07/25. NGT d/c 07/28 Patient tolerating CLD. Will plan to advance diet to GIS and DC MANHOLE STRIPPER. Plan: Neuro: Multimodal pain medication, DC MANHOLE STRIPPER CV:Coreg, telemetry Pulm: IS encouraged and pulmonary hygiene FEN/GI: Diet:GIS, NGT D/C, HLIV IVF, Lytes repletion PRN Renal: Strict I/O, Monitor urine output Endocrine: POC glucose levels ID/ Wound: No additional antbx Heme: No indication for transfusion DVT ppx: Lovenox, ICDs IS: pred 5 mg daily. Activity: Out of bed and ambulation as able. Plan of care to be discussed with staff. Shamir De La Torre MD General Surgery Resident Blue Team Pager: [phone] General Surgery Colorectal Surgery On-Call Pager: [phone] On nights (6 pm to 6 am) and on Weekends/Holidays, please page the on-call pager 11:51 AM, 07/29/2024 --- INTERVAL: NGT removed Feeling well no nausea or emesis Having numerous BM. OBJECTIVE: Physical Exam BP 147/79 Pulse 82 Temp (Src) 97.3 (Oral) Resp 18 Ht 6' 2 (1.88m) Wt 249 lb (112.9kg) SpO2 94% BMI 31.96 kg/(m2). O2 Therapy: Room Air, Liters: 2 General: comfortable, minimal distress Cardiac: extremities warm and well-perfused Pulm: normal respiratory effort Abd: soft, appropriately tender, less distended Neuro: alert, oriented, no gross motor/sensory deficit Intake/Output Intake/Output Summary (Last 24 hours) at 07/29/2024 1151 Last data filed at 07/29/2024 0817 Gross per 24 hour Intake 1836 ml Output 500 ml Net 1336 ml Labs Reviewed Recent Labs 07/29/24 0548 07/28/24 0609 07/27/24 0541 07/26/24 1700 WBC 11.08* 12.39* 10.70 -- HB 7.2* 7.7* 7.4* -- HCT 22.3* 23.3* 23.0* -- PLT 320 274 229 -- NA 140 140 138 -- K 3.4* 3.8 3.7 -- CHLOR 103 104 103 -- CO2 25 27 27 -- CREAT 0.83 0.94 1.08 -- BUN 12 17 20 -- GLUC 86 91 90 -- P -- -- -- 3.4 MG -- -- -- 1.9 CA 8.3* 8.3* 8.0* -- Imaging Reviewed XR ABDOMEN 1V SUPINE Final Result IMPRESSION:Small bowel distention with interval decrease in caliber of the bowel loops. Services Manager: [facility] Transcribe Date/Time: Jul 26 2024 10:49P Dictated by : CARL LOPEZ MD This examination was interpreted and the report reviewed and electronically signed by: CARL LOPEZ MD on Jul 26 2024 10:52PM EST XR ABDOMEN 1V SUPINE Final Result IMPRESSION: What is presumed to be the enteric tube is seen with tip in the distal esophagus. This will need to be advanced. Gaseous distention of multiple loops of small bowel. Could reflect postoperative ileus versus obstruction. Services Manager: [facility] Transcribe Date/Time: Jul 26 2024 8:12A Dictated by : SWAPNA VAZQUEZ MD This examination was interpreted and the report reviewed and electronically signed by: SWAPNA VAZQUEZ MD on Jul 26 2024 8:15AM [facility]10-09-2024 NoteHNO ID: [id number] Author: SOCORRO DORSEY RN Service: Care Management Author Type: Registered Nurse Type: Care Mgt Progress Note Filed: 07/29/2024 10:32 Note Text: CARE MANAGEMENT PROGRESS NOTE SERVICE DATE: 07/29/2024 SERVICE TIME: 10:27 AM LOS: 6 days Needs Prior to Discharge: To Be Determined;Desat Study CM reviewed Caregiver's notes / Epic. Patient is s/p diagnostic laparoscopy, right hemicolectomy, ileocolonic anastomosis, umbilical hernia primary repair. Pt admitted with abdominal pain, pneuomoperitoneum. CM met with patient at the bedside. CM introduced self and explained CM role. Pt is sitting up in a fili chair. He states he has been walking to the bathroom and in the hallway. Pt remains on O2 per nasal cannula at 2-3 litres. Pt does not have a long-term respiratory diagnosis that would qualify him for home O2. PT recommending HOme (no therapy needed) Pt llives with his who can transport home SIGNATURE: Socorro Dorsey RN PATIENT NAME: Mervat Grayson DATE: July 29, 2024 TIME: 10:27 AM PAGER/CONTACT #: [phone] NoteHNO ID: [id number] Author: NOBLE AGUILAR DO Service: Colorectal Author Type: Resident Type: Progress Notes Filed: 07/28/2024 08:16 Note Text: Blue Team Pager: [phone] General Surgery Colorectal Surgery On-Call Pager: [phone] COLORECTAL SURGERY PROGRESS NOTE Patient Name: Mervat Grayson Date: July 28, 2024 ASSESSMENT AND PLAN: Mervat Grayson is a 73 year old H notable for PE (xarelto), RA (on prednisone 5mg daily), T3N0 rectal cancer diagnosed in 2021 s/p capecitabine and pelvic radiation (completed 11/19/2022), who had surveillence colonoscopy on 07/21 with subsequent development of cecal perforation now s/p lap Right hemicolectomy 07/23 c/b ileus, NG tube inserted 07/25. Patient having bowel function overnight with less distention with subjective improvement in patient's discomfort. DC NGT today with CLD Plan: Neuro: Multimodal pain medication CV:Coreg, telemetry Pulm: IS encouraged and pulmonary hygiene FEN/GI: Diet:CLD, NGT D/C, 75cc IVF, Lytes repletion PRN Renal: Strict I/O, Monitor urine output Endocrine: POC glucose levels ID/ Wound: No additional antbx Heme: No indication for transfusion DVT ppx: Lovenox, ICDs IS: pred 5 mg daily. Activity: Out of bed and ambulation as able. Plan of care to be discussed with staff. Noble Aguilar DO General Surgery Resident Blue Team Pager: [phone] General Surgery Colorectal Surgery On-Call Pager: [phone] On nights (6 pm to 6 am) and on Weekends/Holidays, please page the on-call pager 8:15 AM, 07/28/2024 --- INTERVAL: NG with <200cc overnight Small BM overnight Feeling better less bloated, mild nausea controlled with medication Having BM and passing flatus. OBJECTIVE: Physical Exam BP 159/89 Pulse 84 Temp (Src) 98.2 (Oral) Resp 19 Ht 6' 2 (1.88m) Wt 249 lb (112.9kg) SpO2 97% BMI 31.96 kg/(m2). O2 Therapy: Nasal Cannula, Liters: 3.00 General: comfortable, minimal distress Cardiac: extremities warm and well-perfused Pulm: normal respiratory effort Abd: soft, appropriately tender, less distended Neuro: alert, oriented, no gross motor/sensory deficit Intake/Output Intake/Output Summary (Last 24 hours) at 07/28/2024 0815 Last data filed at 07/28/2024 0522 Gross per 24 hour Intake 1423 ml Output 668 ml Net 755 ml Labs Reviewed Recent Labs 07/28/24 0609 07/27/24 0541 07/26/24 1700 07/26/24 0550 WBC 12.39* 10.70 -- 11.49* HB 7.7* 7.4* -- 8.0* HCT 23.3* 23.0* -- 24.5* PLT 274 229 -- 212 NA 140 138 -- 142 K 3.8 3.7 -- 3.6* CHLOR 104 103 -- 106 CO2 27 27 -- 29 CREAT 0.94 1.08 -- 1.18 BUN 17 20 -- 18 GLUC 91 90 -- 95 P -- -- 3.4 -- MG -- -- 1.9 -- CA 8.3* 8.0* -- 8.2* Imaging Reviewed XR ABDOMEN 1V SUPINE Final Result IMPRESSION:Small bowel distention with interval decrease in caliber of the bowel loops. Services Manager: [facility] Transcribe Date/Time: Jul 26 2024 10:49P Dictated by : CARL LOPEZ MD This examination was interpreted and the report reviewed and electronically signed by: CARL LOPEZ MD on Jul 26 2024 10:52PM EST XR ABDOMEN 1V SUPINE Final Result IMPRESSION: What is presumed to be the enteric tube is seen with tip in the distal esophagus. This will need to be advanced. Gaseous distention of multiple loops of small bowel. Could reflect postoperative ileus versus obstruction. Services Manager: [facility] Transcribe Date/Time: Jul 26 2024 8:12A Dictated by : SWAPNA VAZQUEZ MD This examination was interpreted and the report reviewed and electronically signed by: SWAPNA VAZQUEZ MD on Jul 26 2024 8:15AM [facility]10-07-2024 NoteHNO ID: [id number] Author: SOCORRO DORSEY RN Service: Care Management Author Type: Registered Nurse Type: Care Mgt Progress Note Filed: 07/27/2024 10:31 Note Text: CARE MANAGEMENT PROGRESS NOTE SERVICE DATE: 07/27/2024 SERVICE TIME: 10:29 AM LOS: 4 days Needs Prior to Discharge: To Be Determined CM reviewed Caregiver's notes / Epic. Discharge plan: Home with self care. PT recommending Home. 6 Click score= 22 Pt is s/p diagnositic lap, right hemicolectomy, ileocolonic anastomosis, ubilical hernia primary repair. SIGNATURE: Socorro Dorsey RN PATIENT NAME: Mervat Grayson DATE: July 27, 2024 TIME: 10:29 AM PAGER/CONTACT #: [phone] NoteHNO ID: [id number] Author: SHAMIR DE LA TORRE MD Service: Colorectal Author Type: Resident Type: Progress Notes Filed: 07/27/2024 08:03 Note Text: Blue Team Pager: [phone] General Surgery Colorectal Surgery On-Call Pager: [phone] COLORECTAL SURGERY PROGRESS NOTE Patient Name: Mervat Grayson Date: July 27, 2024 ASSESSMENT AND PLAN: Mervat Grayson is a 73 year old PMH notable for PE (xarelto), RA (on prednisone 5mg daily), T3N0 rectal cancer diagnosed in 2021 s/p capecitabine and pelvic radiation (completed 11/19/2022), who had surveillence colonoscopy on 07/21 with subsequent development of cecal perforation now s/p lap Right hemicolectomy 07/23 c/b ileus, NG tube inserted 07/25. Patient having bowel function overnight with less distention with subjective improvement in patient's discomfort. DC NGT today with CLD and to complete abx today. Plan: Neuro: Multimodal pain medication CV:Coreg, telemetry Pulm: IS encouraged and pulmonary hygiene FEN/GI: Diet:CLD, NGT DC., 75cc IVF, Lytes repletion PRN Renal: Strict I/O, Monitor urine output Endocrine: POC glucose levels ID/ Wound: completing day 4 of abx today Heme: No indication for transfusion DVT ppx: Lovenox, ICDs IS: pred 5 mg daily. Activity: Out of bed and ambulation as able. Plan of care to be discussed with staff. Vicente Madison MD General Surgery Resident Blue Team Pager: [phone] General Surgery Colorectal Surgery On-Call Pager: [phone] On nights (6 pm to 6 am) and on Weekends/Holidays, please page the on-call pager 7:28 AM, 07/27/2024 --- INTERVAL: Distended abd improved Feeling better less bloated Having BM and passing flatus. OBJECTIVE: Physical Exam BP 125/77 Pulse 83 Temp (Src) 98.6 (Oral) Resp 18 Ht 6' 2 (1.88m) Wt 249 lb (112.9kg) SpO2 92% BMI 31.96 kg/(m2). O2 Therapy: Nasal Cannula, Liters: 2.00 General: comfortable, minimal distress Cardiac: extremities warm and well-perfused Pulm: normal respiratory effort Abd: soft, appropriately tender, distended Neuro: alert, oriented, no gross motor/sensory deficit Intake/Output Intake/Output Summary (Last 24 hours) at 07/27/2024 0728 Last data filed at 07/27/2024 0530 Gross per 24 hour Intake 3072 ml Output 675 ml Net 2397 ml Labs Reviewed Recent Labs 07/27/24 0541 07/26/24 1700 07/26/24 0550 07/25/24 0548 WBC 10.70 -- 11.49* 14.03* HB 7.4* -- 8.0* 7.6* HCT 23.0* -- 24.5* 22.3* PLT 229 -- 212 174 NA 138 -- 142 141 K 3.7 -- 3.6* 4.0 CHLOR 103 -- 106 106 CO2 27 -- 29 28 CREAT 1.08 -- 1.18 1.23* BUN 20 -- 18 19 GLUC 90 -- 95 96 P -- 3.4 -- -- MG -- 1.9 -- -- CA 8.0* -- 8.2* 8.3* Imaging Reviewed XR ABDOMEN 1V SUPINE Final Result IMPRESSION:Small bowel distention with interval decrease in caliber of the bowel loops. Services Manager: [facility] Transcribe Date/Time: Jul 26 2024 10:49P Dictated by : CARL LOPEZ MD This examination was interpreted and the report reviewed and electronically signed by: CARL LOPEZ MD on Jul 26 2024 10:52PM EST XR ABDOMEN 1V SUPINE Final Result IMPRESSION: What is presumed to be the enteric tube is seen with tip in the distal esophagus. This will need to be advanced. Gaseous distention of multiple loops of small bowel. Could reflect postoperative ileus versus obstruction. Services Manager: [facility] Transcribe Date/Time: Jul 26 2024 8:12A Dictated by : SWAPNA VAZQUEZ MD This examination was interpreted and the report reviewed and electronically signed by: SWAPNA VAZQUEZ MD on Jul 26 2024 8:15AM [facility]10-06-2024 NoteHNO ID: [id number] Author: VICENTE MAIDSON MD Service: Colorectal Author Type: Resident Type: Progress Notes Filed: 07/26/2024 08:32 Note Text: Blue Team Pager: [phone] General Surgery Colorectal Surgery On-Call Pager: [phone] COLORECTAL SURGERY PROGRESS NOTE Patient Name: Mervat Grayson Date: July 26, 2024 ASSESSMENT AND PLAN: Mervat Grayson is a 73 year old H notable for PE (xarelto), RA (on prednisone 5mg daily), T3N0 rectal cancer diagnosed in 2021 s/p capecitabine and pelvic radiation (completed 11/19/2022), who had surveillence colonoscopy on 07/21 with subsequent development of cecal perforation now s/p lap Right hemicolectomy 07/23 c/b ileus, NG tube inserted 07/25 Plan: Neuro: Multimodal pain medication CV:Coreg, telemetry Pulm: IS encouraged and pulmonary hygiene FEN/GI: Diet:NPO, NGT to LIWS, 75cc IVF, Lytes repletion PRN Renal: Strict I/O, Monitor urine output Endocrine: POC glucose levels ID/ Wound: complete periop abx, No evidence of infection; no indication for antibiotics Heme: No indication for transfusion DVT ppx: Lovenox, ICDs IS: pred 5 mg daily. Activity: Out of bed and ambulation as able. Plan of care to be discussed with staff. Vicente Madison MD General Surgery Resident Blue Team Pager: [phone] General Surgery Colorectal Surgery On-Call Pager: [phone] On nights (6 pm to 6 am) and on Weekends/Holidays, please page the on-call pager 8:26 AM, 07/26/2024 --- INTERVAL: Distended No gas or BM yet NGT to LIWS OBJECTIVE: Physical Exam BP 126/83 Pulse 83 Temp (Src) 97.5 (Oral) Resp 16 Ht 6' 2 (1.88m) Wt 249 lb (112.9kg) SpO2 94% BMI 31.96 kg/(m2). O2 Therapy: Nasal Cannula, Liters: 3.00 General: comfortable, minimal distress Cardiac: extremities warm and well-perfused Pulm: normal respiratory effort Abd: soft, appropriately tender, distended Neuro: alert, oriented, no gross motor/sensory deficit Intake/Output Intake/Output Summary (Last 24 hours) at 07/26/2024 0826 Last data filed at 07/26/2024 0614 Gross per 24 hour Intake 20 ml Output 1385 ml Net -1365 ml Labs Reviewed Recent Labs 07/26/24 0550 07/25/24 0548 07/24/24 0615 WBC 11.49* 14.03* 16.72* HB 8.0* 7.6* 7.8* HCT 24.5* 22.3* 23.3* PLT 212 174 146* NA 142 141 139 K 3.6* 4.0 4.0 CHLOR 106 106 105 CO2 29 28 27 CREAT 1.18 1.23* 1.17 BUN 18 19 15 GLUC 95 96 127* P -- -- 3.0 MG -- -- 2.1 CA 8.2* 8.3* 8.1* Imaging Reviewed XR ABDOMEN 1V SUPINE Final Result IMPRESSION: What is presumed to be the enteric tube is seen with tip in the distal esophagus. This will need to be advanced. Gaseous distention of multiple loops of small bowel. Could reflect postoperative ileus versus obstruction. Services Manager: SHARON Transcribe Date/Time: Jul 26 2024 8:12A Dictated by : SWAPNA VAZQUEZ MD This examination was interpreted and the report reviewed and electronically signed by: SWAPNA VAZQUEZ MD on Jul 26 2024 8:15AM [facility]2024 NoteHNO ID: [id number] Author: SHAMIR DE LA TORRE MD Service: Colorectal Author Type: Resident Type: Progress Notes Filed: 07/25/2024 08:43 Note Text: Blue Team Pager: [phone] General Surgery Colorectal Surgery On-Call Pager: [phone] COLORECTAL SURGERY PROGRESS NOTE Patient Name: Mervat Grayson Date: July 25, 2024 ASSESSMENT AND PLAN: Mervat Grayson is a 73 year old PMHx notable for PE (xarelto), RA (on prednisone 5mg daily), T3N0 rectal cancer diagnosed in 2021 s/p capecitabine and pelvic radiation given (completed 11/19/2022), who had surveillence colonoscopy on 07/21 with subsequent development of cecal perforation now s/p lap Right hemicolectomy and UHR 07/23. Hgb stabilized at this point. Remains on 3L O2 will plan to wean as able Plan: - OOB - CLD - Daily CBC. - Hold DVT ppx. Neuro: Multimodal pain medication, pain per MAR CV:Coreg, telemetry, HDS Pulm: IS encouraged and pulmonary hygiene, currently on 3l FEN/GI: Diet:CLD, 75cc IVF, Lytes repletion PRN Renal: Strict I/O, Endocrine: POC glucose sticks, ID/ Wound: complete periop abx, No evidence of infection; no indication for antibiotics Heme: Hgb slow downtrend will transfuse if < 7 and if sx. DVT ppx: holding dvt ppx and will continue to discuss timing of reinitiation of AC, given feiba prior to OR, ICDs IS: pred 5 mg daily. Activity: Out of bed and ambulation as able. Plan of care to be discussed with staff. Shamir De La Torre MD General Surgery Resident Blue Team Pager: [phone] General Surgery Colorectal Surgery On-Call Pager: [phone] On nights (6 pm to 6 am) and on Weekends/Holidays, please page the on-call pager 8:40 AM, 07/25/2024 --- INTERVAL: No acute events overnight. Hgb 7.6 from 7.8 Spivey DC and voided Ambulated around the unit. Feeling well no SOB OBJECTIVE: Physical Exam BP 132/72 Pulse 83 Temp (Src) 98.1 (Oral) Resp 16 Ht 6' 2 (1.88m) Wt 249 lb (112.9kg) SpO2 96% BMI 31.96 kg/(m2). O2 Therapy: Nasal Cannula, Liters: 3 General: comfortable, no acute distress Cardiac: extremities warm and well-perfused Pulm: normal respiratory effort on 3L Abd: soft, appropriately tender, non distended Neuro: alert, oriented, no gross motor/sensory deficit Intake/Output Intake/Output Summary (Last 24 hours) at 07/25/2024 0840 Last data filed at 07/25/2024 0750 Gross per 24 hour Intake 2351 ml Output 475 ml Net 1876 ml Labs Reviewed Recent Labs 07/25/24 0548 07/24/24 0615 07/23/24 2355 07/23/24 1049 07/23/24 0541 07/23/24 0416 WBC 14.03* 16.72* 16.47* < > 14.22* 13.36* HB 7.6* 7.8* 8.4* < > 11.6* 13.0 HCT 22.3* 23.3* 24.7* < > 34.8* 38.1* PLT 174 146* 154 < > 184 185 NA 141 139 -- -- 138 139 K 4.0 4.0 -- -- 4.0 4.0 CHLOR 106 105 -- -- 104 104 CO2 28 27 -- -- 24 22 CREAT 1.23* 1.17 -- -- 1.08 1.06 BUN 19 15 -- -- 11 11 GLUC 96 127* -- -- 173* 155* P -- 3.0 -- -- 2.8 2.8 MG -- 2.1 -- -- 1.6* 1.6* CA 8.3* 8.1* -- -- 8.3* 8.5 < > = values in this interval not displayed. Imaging Reviewed No orders to displayClover Hill [id number] NoteHNO ID: [id number] Author: SOCORRO DORSEY RN Service: Care Management Author Type: Registered Nurse Type: Care Mgt Progress Note Filed: 07/24/2024 12:36 Note Text: CARE MANAGEMENT WEEKEND PLANNING NOTE DISCHARGE OR POSSIBLE DISCHARGE Date/Time: 12:35 PM Disposition: HOme with self care Transport: per family. Other Concerns: Weekend Research Asst Pager #: Saturday: 8-12pm GERSON Daley (or Epic chat) 12- 4pm Juliet Taylor RN (or Epic chat) Saturday: Brad Das RN (or Epic chat) Pt is s/p diagnositic lap, right hemicolectomy, ileocolonic anastomosis, ubilical hernia primary repair. SIGNATURE: Socorro Dorsey RN PATIENT NAME: Mervat Grayson DATE: July 24, 2024 TIME: 12:35 PM PAGER/CONTACT #: [phone] [id number] NoteHNO ID: [id number] Author: SHAMIR DE LA TORRE MD Service: Colorectal Author Type: Resident Type: Progress Notes Filed: 07/24/2024 07:58 Note Text: Blue Team Pager: [phone] General Surgery Colorectal Surgery On-Call Pager: [phone] COLORECTAL SURGERY PROGRESS NOTE Patient Name: Mervat Grayson Date: July 24, 2024 ASSESSMENT AND PLAN: Mervat Grayson is a 73 year old PMHx notable for PE (xarelto), RA (on prednisone 5mg daily), T3N0 rectal cancer diagnosed in 2021 s/p capecitabine and pelvic radiation given (completed 11/19/2022), who had surveillence colonoscopy on 07/21 with subsequent development of cecal perforation now s/p lap Right hemicolectomy and UHR 07/23. Patient with continued hgb drop but slowing down. Likely dilutional at this point. Will change CBC to every day, will plan for DC spivey. Given his distention will keep on sips and chips. Plan: - OOB - DC spivey - sips and chips - Daily CBC. Neuro: Multimodal pain medication, pain per MAR CV:Coreg, telemetry, HDS Pulm: IS encouraged and pulmonary hygiene, currently on 3l FEN/GI: Diet:NPO, 75cc IVF, Lytes repletion PRN Renal: Strict I/O, Spivey Dc today, Endocrine: POC glucose sticks, ID/ Wound: to complete periop abx, No evidence of infection; no indication for antibiotics Heme: Hgb slow downtrend will transfuse if < 7 and if sx. DVT ppx: will discuss DVT ppx and reinitiation of AC, given feiba prior to OR, ICDs IS: pred 5 mg daily. Activity: Out of bed and ambulation as able. Plan of care to be discussed with staff. Shamir De La Torre MD General Surgery Resident Blue Team Pager: [phone] General Surgery Colorectal Surgery On-Call Pager: [phone] On nights (6 pm to 6 am) and on Weekends/Holidays, please page the on-call pager 7:55 AM, 07/24/2024 --- INTERVAL: No acute events overnight. Cbc with hgb downtrending but slowing Patient is oob Patient with minimal complaints no flatus no BM. OBJECTIVE: Physical Exam BP 135/73 Pulse 82 Temp (Src) 98.2 (Oral) Resp 18 Ht 6' 2 (1.88m) Wt 249 lb (112.9kg) SpO2 90% BMI 31.96 kg/(m2). O2 Therapy: Nasal Cannula, Liters: 2.00 General: comfortable, no acute distress Cardiac: extremities warm and well-perfused Pulm: normal respiratory effort on 3L Abd: soft, appropriately tender, non distended Neuro: alert, oriented, no gross motor/sensory deficit Intake/Output Intake/Output Summary (Last 24 hours) at 07/24/2024 0755 Last data filed at 07/24/2024 0402 Gross per 24 hour Intake 3332 ml Output 700 ml Net 2632 ml Labs Reviewed Recent Labs 07/24/24 0615 07/23/24 2355 07/23/24 1836 07/23/24 1049 07/23/24 0541 07/23/24 0416 WBC 16.72* 16.47* 16.33* < > 14.22* 13.36* HB 7.8* 8.4* 8.9* < > 11.6* 13.0 HCT 23.3* 24.7* 26.7* < > 34.8* 38.1* PLT 146* 154 165 < > 184 185 NA 139 -- -- -- 138 139 K 4.0 -- -- -- 4.0 4.0 CHLOR 105 -- -- -- 104 104 CO2 27 -- -- -- 24 22 CREAT 1.17 -- -- -- 1.08 1.06 BUN 15 -- -- -- 11 11 GLUC 127* -- -- -- 173* 155* P 3.0 -- -- -- 2.8 2.8 MG 2.1 -- -- -- 1.6* 1.6* CA 8.1* -- -- -- 8.3* 8.5 < > = values in this interval not displayed. Imaging Reviewed No orders to displayClover Hill [id number] NoteHNO ID: [id number] Author: LUCINA SCHRADER RN Service: Care Management Author Type: Registered Nurse Type: Care Mgt Initial Assessment Filed: 07/23/2024 15:27 Note Text: CARE MANAGEMENT: ASSESSMENT AND DISCHARGE PLAN SERVICE DATE: July 23, 2024 SERVICE TIME: 3:14 PM PCP: Lorenzo Marin DO Primary Contact: Extended Emergency Contact Information Primary Emergency Contact: MarjoriemaulikMini Mobile Relation: Spouse Secondary Emergency Contact: Fabricio Bose Address: [address] [facility] [place] Relation: Daughter Admission Status: Inpatient Insurance Provider: MEDICARE A AND B Discharge Planning requested by: Per Department Practice Potential Transition Plans Home;To Be Determined Advance Directives Current Advance Directive: None Current Living Arrangements and Support Lives with: Spouse/significant other Type of Residence: Private Residence (House) Does the patient have to climb stairs at home?: Yes;stairs outside the home (x3 steps into residence) Support: Spouse/significant other How do you manage to accomplish the following: Independent: Ambulation;Bathe/Shower;Dress;Meals/Meal Prep;Going to the bathroom;Medication Management;Transportation to appointments/community Current Services/Equipment Current Post-Acute Service(s): None Discharge Planning Patient Goal(s): General wellness, Be able to go home [place] of Choice Explained: [place] of Choice Given: No Reason Not Given: No placements necessary (at this time) Are you interested in bedside delivery of your medications? No Discharge Planning Participant(s): Patient Patient/Family Comments: Per chart, patient lives with his spouse and normally independent with his regular ADLs. Caregiver Assessment: Caregiver is ready, willing and able to meet the patient's needs as recommended by the inter-professional team: No Caregiver needed Transport at Discharge: Transportation Arrangements: To Be Determined (Likely transportation home per spouse) Needs Prior to Discharge: Needs Prior to Discharge: To Be Determined Post-Acute Discharge Plan: Per chart, patient admitted for abdominal pain for pneumoperitoneum post colonoscopy at [facility] x2 days ago. S/p Rt laparoscopic colectomy. Hx of PE, rectal CA, cardiomyopathy, and RA. Lives at home with his spouse normally independent with his regular ADLs. No prior [facility] services noted. PT and OT recommendations pending. Likely can transport patient home. PTBD. SIGNATURE: Lucina Schrader RN PATIENT NAME: Mervat Grayson DATE: July 23, 2024 TIME: 3:14 PM CONTACT #: [phone] Hill [id number] NoteHNO ID: [id number] Author: SHAMIR DE LA TORRE MD Service: Colorectal Author Type: Resident Type: Progress Notes Filed: 07/23/2024 07:50 Note Text: Blue Team Pager: [phone] General Surgery Colorectal Surgery On-Call Pager: [phone] COLORECTAL SURGERY PROGRESS NOTE Patient Name: Mervat Grayson Date: July 23, 2024 ASSESSMENT AND PLAN: Mervat Grayson is a 73 year old PMHx notable for PE (xarelto), RA (on prednisone 5mg daily), T3N0 rectal cancer diagnosed in 2021 s/p capecitabine and pelvic radiation given (completed 11/19/2022), who had surveillence colonoscopy on 07/21 with subsequent development of cecal perforation now s/p lap Right hemicolectomy and UHR 07/23. Patient is POD 0 however progressing well and has already ambulated. Will plan to hold course for today given recent surgical intervention. Pending patient's clinical course, possible CLD this evening. Plan: - OOB - possible DC spivey - Possible CLD later this evening. Neuro: Multimodal pain medication, pain per MAR CV:Coreg, telemetry, HDS Pulm: IS encouraged and pulmonary hygiene, currently on 3l FEN/GI: Diet:NPO, 75cc IVF, Lytes repletion PRN Renal: Strict I/O, Spivey possible Dc later today, Endocrine: POC glucose sticks, ID/ Wound: to complete periop abx, No evidence of infection; no indication for antibiotics Heme: Hgb stable no evidence of bleeding. DVT ppx: will discuss DVT ppx and reinitiation of AC, given feiba prior to OR, ICDs IS: pred 5 mg daily. Activity: Out of bed and ambulation as able. Plan of care to be discussed with staff. Shamir De La Torre MD General Surgery Resident Blue Team Pager: [phone] General Surgery Colorectal Surgery On-Call Pager: [phone] On nights (6 pm to 6 am) and on Weekends/Holidays, please page the on-call pager 7:41 AM, 07/23/2024 --- INTERVAL: No acute events overnight. S/p Lap R shelia Pain well controlled. No nausea or vomiting. - flatus. - BMs. OBJECTIVE: Physical Exam BP 130/83 Pulse 75 Temp (Src) 97.7 (Oral) Resp 26 Ht 6' 2 (1.88m) Wt 249 lb (112.9kg) SpO2 96% BMI 31.96 kg/(m2). O2 Therapy: Nasal Cannula, Liters: 3.00 General: comfortable, no acute distress Cardiac: extremities warm and well-perfused Pulm: normal respiratory effort on 3L Abd: soft, appropriately tender, non distended Neuro: alert, oriented, no gross motor/sensory deficit Intake/Output Intake/Output Summary (Last 24 hours) at 07/23/2024 0741 Last data filed at 07/23/2024 0534 Gross per 24 hour Intake 3700 ml Output 500 ml Net 3200 ml Labs Reviewed Recent Labs 07/23/24 0541 07/23/24 0416 07/22/24 2334 WBC 14.22* 13.36* 15.98* HB 11.6* 13.0 13.5 HCT 34.8* 38.1* 39.9 PLT 184 185 185 NA 138 139 135* K 4.0 4.0 3.7 CHLOR 104 104 100 CO2 24 22 23 CREAT 1.08 1.06 1.06 BUN 11 11 11 GLUC 173* 155* 104* P 2.8 2.8 2.5* MG 1.6* 1.6* 1.8 CA 8.3* 8.5 8.8 Imaging Reviewed No orders to displayClover Hill [id number] NoteHNO ID: [id number] Author: MK LO MD Service: Anesthesiology Author Type: Anesthesiologist Type: Anesthesia Procedure Notes Filed: 07/23/2024 01:11 Note Text: ANESTHESIOLOGY PROCEDURE NOTE Airway General Information Procedure Start Time/Medication Administration: 07/23/2024 12:44 AM Procedure End Time: 07/23/2024 12:45 AM Patient location during procedure: OR Staffing Anesthesiologist: Mk Lo MD Performed by: VIC Indications and Patient Condition Indications for airway management: anesthesia Preoxygenated: yes anesthesia circuit Method: rapid sequence Cricoid Pressure: Yes Difficult Mask: No Final Airway Details Final airway type: endotracheal airway Final Endotracheal Airway: ETT Cuffed: yes Successful intubation technique: video laryngoscopy Devices used: Sanon and intubating stylet Endotracheal tube insertion site: oral Blade: Kwame Blade size: #4 ETT size (mm): 8.0 Measured from: lips Measurement (cm): 21 Placement verified by: chest auscultation and capnometry Cormack-Lehane Classification: grade I - full view of glottis Number of attempts at approach: 1 Airway not difficult Comments Elective Sanon use lips and teeth in pre-anesthetic condition SIGNATURE: Mk Lo MD PATIENT NAME: Mervat Grayson DATE: July 23, 2024 TIME: 1:09 AM CSN: [id number] NoteHNO ID: [id number] Author: MK LO MD Service: Anesthesiology Author Type: Anesthesiologist Type: Anesthesia Procedure Notes Filed: 07/23/2024 01:07 Note Text: ANESTHESIOLOGY PROCEDURE NOTE PIV General Information Procedure Start Time/Medication Administration: 07/23/2024 12:49 AM Procedure End Time: 07/23/2024 12:49 AM Patient Location: OR Staffing Anesthesiologist: Mk Lo MD Performed by: anesthesiologist Preparation Sterility Preparation: hand hygiene performed prior to procedure Site Prep: Betadine and chlorhexidine Procedure Details Indication: need for IV access Needle Size/Type: 18 gauge angiocath Orientation: Right Location: Hand Imaging Guidance Used: No SIGNATURE: Mk Lo MD PATIENT NAME: Mervat Grayson DATE: July 23, 2024 TIME: 1:06 AM CSN: [id number] NoteHNO ID: [id number] Author: MK LO MD Service: Anesthesiology Author Type: Anesthesiologist Type: Anesthesia Procedure Notes Filed: 07/23/2024 01:06 Note Text: ANESTHESIOLOGY PROCEDURE NOTE PIV General Information Procedure Start Time/Medication Administration: 07/23/2024 1:00 AM Procedure End Time: 07/23/2024 1:00 AM Patient Location: OR Staffing Anesthesiologist: Mk Lo MD Performed by: anesthesiologist Preparation Sterility Preparation: hand hygiene performed prior to procedure Site Prep: Betadine and chlorhexidine Procedure Details Indication: need for IV access Needle Size/Type: 18 gauge angiocath Orientation: Left Location: Hand Imaging Guidance Used: No SIGNATURE: Mk Lo MD PATIENT NAME: Mervat Grayson DATE: July 23, 2024 TIME: 1:06 AM CSN: [id number] NoteHNO ID: [id number] Author: VÍCTOR AVENDANO AA Service: Anesthesiology Author Type: Trekking Guide Type: Anesthesia Procedure Notes Filed: 07/23/2024 00:52 Note Text: ANESTHESIOLOGY PROCEDURE NOTE A-Line General Information Procedure Start Time/Medication Administration: 07/23/2024 12:39 AM Procedure End Time: 07/23/2024 12:39 AM Patient location during procedure: OR Consent Obtained: Yes Indications: continuous blood pressure monitoring Staffing Anesthesiologist: Mk Lo MD CAA: Víctor Avendano AA Performed by: VIC Preparation Sterility Preparation: sterile drape used during line insertion, skin prep agent completely dried prior to procedure Site Prep: Chlorhexidine Procedure Details Catheter Size: 20 G Catheter Length: 5.25 in Guidewire Used: Yes Laterality: right Site: radial artery Ultrasound Guided: No Line Secured: Tegaderm and tape Events Events: patient tolerated procedure well with no complications SIGNATURE: JUDAH Contreras PATIENT NAME: Mervat Grayson DATE: July 23, 2024 TIME: 12:51 AM CSN: [id number] NoteHistory and Physical ACUTE CARE SURGERY CONSULT / H&P Patient Name: MERVAT GRAYSON Admission Date: 07/22/2024 16:54:04 Chief Complaint: Referring Physician: Patient seen and examined on 07/22/2024 20:51:32 HISTORY OF PRESENT ILLNESS MERVAT GRAYSON is a 73 Years-old Male with a PMHx of rheumatoid arthritis (on prednisone 5 mg), PE (on xarelto- last dose 12 pm 07/22) and rectal cancer s/p chemo and radiation with complete clinical response. He underwent a surveillance colonoscopy yesterday and since then has developed subsequently worsening abdominal pain. He denies fever, chillls, nausea or vomiting, but has noted that his umbilical hernia has increased in size over the course of the day. PAST MEDICAL HISTORY: Rheumatoid arthritis BPH CAD Rectal cancer Hx PE PAST SURGICAL HISTORY: Urodynamics: 08/22/23 Sigmoidoscopy: 08/20/22 Laparoscopic repair of inguinal hernia: 01/01/18 LT ESWL: 03/22/16 RT ESWL: 12/22/15 Cervical spinal fusion x2 Colonoscopy Hammer toe operation Hemorrhoidectomy Cervical spinal fusion PRE-ADMISSION MEDICATIONS: ascorbic acid: 1,000 mg, Oral, Daily ascorbic acid/chondroitin/glucosa/angelo: 1500mg/1200mg, Oral, Daily carvedilol: 6.25 mg = 1 tab(s), Oral, BID finasteride: 5 mg = 1 tab(s), Oral, Daily predniSONE: take 1 tablet by mouth daily as directed START AFTER TAPER rivaroxaban: 15 mg = 1 tab(s), Oral sildenafil: 100 mg = 1 tab(s), Oral, As Directed, PRN (erectile dysfunction), 1 hour before sexual activity tamsulosin: 0.4 mg = 1 cap(s), Oral, BID valsartan: 80 mg = 1 tab(s), Oral, Daily ALLERGIES: Allergies (1) Active Severity Reaction No Known Allergies None Documented SOCIAL HISTORY: Social & Psychosocial History Social History Alcohol Denies Alcohol Use Beer, Wine, Alcohol use interferes with work or home: No. Drinks more than intended: No. Others hurt by drinking: No. Ready to change: No. Household alcohol concerns: No. 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 Never Smokeless Tobacco Use:. Household tobacco concerns: No. Yes Psychosocial History No active psychosocial history has been recorded FAMILY HISTORY: Father: Primary malignant neoplasm of bladder Mother: Cancer...... Sister: Cancer...... REVIEW OF SYSTEMS Constitutional: no? fever, no? chills, no? sweats, no? weakness. Skin: no? Jaundice, no? rash, no? lesions, no? petechiae. ENMT: no? ear pain, no? sore throat, no? congestion, no? hoarseness. Respiratory: no? shortness of breath, no? cough, no? orthopnea, no? wheezing. Cardiovascular: no? chest pain, no? palpitations, no? edema. Gastrointestinal: +abdominal pain Genitourinary: no? dysuria, no? hematuria, no? discharge, no? pain. Musculoskeletal: no? back pain, no? trauma. Neurologic: no? headache, no? dizziness, no? numbness, no? weakness. Psychiatric: no? sleeping problems, no? irritability, no? mood swings/depression. Heme/Lymph: no? bleeding tendency, no? bruising tendency, no? petechiae, no? swollen lymph nodes Allergy/Immunologic: Seasonal allergies, no? food allergies, no? recurrent infections, no? impairedimmunity PHYSICAL EXAM General: alert?, no acute? distress Skin: warm?, dry? Head: normocephalic? Eye: normal? conjunctiva, sclera clear? ENMT: oral mucosa moist?, Cardiovascular: regular? rate and rhythm, normal? peripheral perfusion Respiratory: non labored breathing on nasal canula Gastrointestinal: soft with moderate diffuse tenderness and involuntary guarding right worse than left Back: No? tenderness, Normal? ROM, Normal? alignment. Extremities: no? deformity, no? trauma Neurological: oriented x 4?, LOC appropriate for age?, speech normal? Psychiatric: cooperative?, affect appropriate for age? BASIC LABS Last 24 Hours Basic Metabolic Panel: Hematology: : () HGB: 12.8 (07/22/24) : () : () : () : () : () : () : () : () Creatinine: 1.0 (07/22/24) : () Additional - Last 24 Hours A/G Ratio: 1.3 (07/22/24) AGAP: 9 (07/22/24) Albumin Lvl: 3.6 (07/22/24) Alk Phos: 78 (07/22/24) ALT: 8 (07/22/24) AST: 11 (07/22/24) Basophil Absolute: 0.0 (07/22/24) Basophil Auto: 0.2 (07/22/24) Bili Total: 2.3 (07/22/24) BUN: 13 (07/22/24) BUN/Creat Ratio: 13 (07/22/24) Calcium Lvl: 8.8 (07/22/24) Chloride: 104 (07/22/24) CO2: 27 (07/22/24) eGFR: 80 (07/22/24) Eos Absolute: 0.1 (07/22/24) Eos Auto: 0.5 ( (more content not included)...[facility] Comment on above:Result Comment: Electronically Signed By: Ritter ARRINGTON, Jammie Abraham\.br\Date and Time Signed: 07/22/24 20:59 [id number] Telephone encounter Note* Telephone Encounter - hCelsie Kolb RN - 07/22/2024 3:29 PM EDT Called patient. He reports that he has an area near his umbilicus that is painful when he takes a deep breath. This began after his colonoscopy yesterday. He also reports feeling a 5 cm bulge to the right of his umbilicus. He is wondering if he has a hernia and if Dr. Norman would be the one to treat him for that. Denies nausea, denies blood in stool. We discussed the need for a CT scan to evaluate for either a perforation or a hernia. He states he will watch and wait to see if the pain improves or gets worse. If it gets worse, he will go to the ED. Advised that he becomes nauseous or is having blood in his stools or if his abdomen becomes distended, he should report to the ED. [facility]10-02-2024 Miscellaneous Notes* Telephone Encounter - Chelsie Kolb RN - 07/22/2024 3:29 PM EDT Called patient. He reports that he has an area near his umbilicus that is painful when he takes a deep breath. This began after his colonoscopy yesterday. He also reports feeling a 5 cm bulge to the right of his umbilicus. He is wondering if he has a hernia and if Dr. Norman would be the one to treat him for that. Denies nausea, denies blood in stool. We discussed the need for a CT scan to evaluate for either a perforation or a hernia. He states he will watch and wait to see if the pain improves or gets worse. If it gets worse, he will go to the ED. Advised that he becomes nauseous or is having blood in his stools or if his abdomen becomes distended, he should report to the ED. * Telephone Encounter - Kraig Herring - 07/22/2024 9:12 AM EDT Pt is experiencing sharp pain in umbilical region after colonoscopy and it happens when he breathesand coughs. CB#: [phone] [facility] Evaluation + Plan note Extracted from: Title:ED Note Author:Joseph ESCOBAR, Celeste Ortiz ate:07/22/24 Ordered: potassium chloride, 20 mEq = 1 tab(s), Tab-ER, Oral, Once, Stop date 07/22/24 18:54:00 EDT, STAT, Start date 07/22/24 18:54:00 EDT, 07/22/24 18:54:00 EDT CBC w/ Auto Diff Comprehensive Metabolic Panel CT Abdomen/Pelvis w/ Contrast eGFR Rapid [place] [place] Troponin 0 Hr. UA with Cult Rflx Future Appointments Appointment Date:09/10/2024 08:00:00 AM Scheduled Provider:Dilan ARRINGTON, Santiago Medina Location:[facility] Appointment Type:Cardiology Follow Up ([facility]) Appointment Date:02/15/2025 08:45:00 AM Scheduled Provider:Corey SINGLETON MD Location:[facility] Appointment Type:URO Office Visit Diagnostic Tests Pending * Blood Culture Charcoal 07/22/24 * Blood Culture Charcoal 07/22/24 Future Scheduled Tests Laboratory* B-Type Natriuretic Peptide 11/01/23 * Basic Metabolic Panel 11/01/23 [facility] 10-02-2024 Telephone encounter Note* Telephone Encounter - Kraig Herring - 07/22/2024 9:12 AM EDT Pt is experiencing sharp pain in umbilical region after colonoscopy and it happens when he breathesand coughs. CB#: [phone] [facility]10[facility] History of Present illness Narrative* Chelsie Kolb RN - 07/21/2024 11:28 AM EDT Sigmoidoscopy order. Due Oct/Nov 2024 documented in this [facility] History of Present illness Narrative* Shamir De La Torre MD - 07/21/2024 9:30 AM EDT PROCEDURAL SEDATION HISTORY AND PHYSICAL EXAM SERVICE DATE: 07/21/2024 SERVICE TIME: 8:32 AM Subjective HPI: This is a 73 year old male who presents for colonoscopy. Indication: Surveillence Symptoms: None Relevant Hx: T3N0 rectal cancer s/p chemoradiation Last flex si02/2024 Impression: - Preparation of the colon was fair. - Scar in the distal rectum. - The examination was otherwise normal. - No specimens collected. Home anticoagulation: Xarelto Last dose: 07/17 PAST ANESTHESIA HISTORY: No history of adverse [...] LENS Prior to Admission medications as of 07/20/24 1017 Medication Sig Last Dose Taking XARELTO 20 mg tablet TAKE ONE TABLET BY MOUTH DAILY WITH DINNER calcium carbonate (CALCIUM 600 ORAL) Take 1 tablet by mouth once daily. glucosamine/chondr perez A sod (GLUCOSAMINE-CHONDROITIN) 1,500-1,200 mg/30 mL liqd Take by mouth once daily. predniSONE (DELTASONE) 5 mg tablet Take 5 mg by mouth once daily. valsartan (DIOVAN) 80 mg tablet Take 80 mg by mouth once daily. carvedilol (COREG) 6.25 mg tablet Take 6.25 mg by mouth twice daily with meals. tamsulosin ER (FLOMAX) 0.4 mg cap Take 0.4 mg by mouth twice daily. Ascorbic Acid 100 mg tablet Take 100 mg by mouth twice daily. ALLERGIES No Known Allergies Objective PHYSICAL EXAM: The remainder of the physical exam is noncontributory. There were no vitals taken for this visit. General: Resting in bed. No acute distress. HEENT: Normocephalic. Atraumatic. Heart: Regular rate and rhythm. Airway: Lungs: Unlabored respirations. Symmetric chest rise. Abdomen: Soft, nontender, nondistended. No rebound, guarding, or rigidity. Extremities: Warm and well-perfused. No gross deformity. Neuro: Alert and oriented. Moves all extremities. Assessment/Plan ASA Class: 2 Active Problems: * No active hospital problems. * Provisional Diagnosis/Treatment Plan: - Proceed with colonoscopy, possibly polypectomy, possible biopsy - Risk, benefits, alternatives, and perioperative expectations discussed with patient - Consent obtained Shamir De La Torre MD 07/21/2024 8:32 AM Associated attestation - Deborah Norman MD - 07/21/2024 9:23 AM EDT Attending Note I evaluated the patient and personally participated in the tripp components. I agree with the resident's findings and plan as documented and have discussed the case and management of the patient's carewith the resident. Signature: Deborah Norman MD Date: 07/21/2024 Time: 9:23 AM documented in this encounterR[facility]24 NoteHNO ID: [id number] Author: DEBORAH NORMAN MD Service: Colorectal Author Type: Resident Type: Progress Notes Filed: 07/21/2024 09:23 Note Text: Attestation signed by Deborah Norman MD at 07/21/2024 9:23 AM Attending Note I evaluated the patient and personally participated in the tripp components. I agree with the resident's findings and plan as documented and have discussed the case and management of the patient's care with the resident. Signature: Deborah Norman MD Date: 07/21/2024 Time: 9:23 AM PROCEDURAL SEDATION HISTORY AND PHYSICAL EXAM SERVICE DATE: 07/21/2024 SERVICE TIME: 8:32 AM Subjective HPI: This is a 73 year old male who presents for colonoscopy. Indication: Surveillence Symptoms: None Relevant Hx: T3N0 rectal cancer s/p chemoradiation Last flex si02/2024 Impression: - Preparation of the colon was fair. - Scar in the distal rectum. - The examination was otherwise normal. - No specimens collected. Home anticoagulation: Xarelto Last dose: 07/17 PAST ANESTHESIA HISTORY: No history of adverse [...] LENS Prior to Admission medications as of 07/20/24 1017 Medication Sig Last Dose Taking XARELTO 20 mg tablet TAKE ONE TABLET BY MOUTH DAILY WITH DINNER calcium carbonate (CALCIUM 600 ORAL) Take 1 tablet by mouth once daily. glucosamine/chondr perez A sod (GLUCOSAMINE-CHONDROITIN) 1,500-1,200 mg/30 mL liqd Take by mouth once daily. predniSONE (DELTASONE) 5 mg tablet Take 5 mg by mouth once daily. valsartan (DIOVAN) 80 mg tablet Take 80 mg by mouth once daily. carvedilol (COREG) 6.25 mg tablet Take 6.25 mg by mouth twice daily with meals. tamsulosin ER (FLOMAX) 0.4 mg cap Take 0.4 mg by mouth twice daily. Ascorbic Acid 100 mg tablet Take 100 mg by mouth twice daily. ALLERGIES No Known Allergies Objective PHYSICAL EXAM: The remainder of the physical exam is noncontributory. There were no vitals taken for this visit. General: Resting in bed. No acute distress. HEENT: Normocephalic. Atraumatic. Heart: Regular rate and rhythm. Airway: Lungs: Unlabored respirations. Symmetric chest rise. Abdomen: Soft, nontender, nondistended. No rebound, guarding, or rigidity. Extremities: Warm and well-perfused. No gross deformity. Neuro: Alert and oriented. Moves all extremities. Assessment/Plan ASA Class: 2 Active Problems: * No active hospital problems. * Provisional Diagnosis/Treatment Plan: - Proceed with colonoscopy, possibly polypectomy, possible biopsy - Risk, benefits, alternatives, and perioperative expectations discussed with patient - Consent obtained Shamir De La Torre MD 07/21/2024 8:32 [id number] History of Present illness Narrative* JANINE Corey - 07/14/2024 10:00 AM EDT Images from the original note were not included. Lesions: Location: Left upper arm and left neck Duration: months Quality: painful Modifying factors: aggravated by picking Associated symptoms: rough Treatments: none Lesion # 2: Location: Right axillary line Duration: months Quality: painful Modifying factors: rubs on clothing Associated symptoms: tender Treatments: none Location #3: scalp Duration: 2-3 years Quality: painful Associated symptoms: pimple-like bumps Treatments: Saw [facility] last year and was prescribed Ketoconazole shampoo and Clindamycin solution (didn't help much) New patient, referred by JANINE Dumont All pertinent medical history, medications, and allergies were reviewed. General Exam: alert , oriented to person, place, and time , normal affect, well appearing Unaccompanied A focused exam completed based on patient reported problems, see below: 1. Bacterial folliculitis posterior scalp Follicularly-based erythematous papules. Leoncio toojohanna Discussed that folliculitis is a common condition in which the hair follicles become infected and can be symptomatic. Recommend keeping hair a little longer, clean clippers after each use. Re-start clindamycin gel daily prn for flares and BPO wash daily in the shower for the scalp. Continue BPO wash as maintenance therapy to prevent flares. Notify office if failing to improve despite treatment. Literature provided. Would consider low dose oral antibiotic if not improving. clindamycin (Clindagel) 1 % gel - posterior scalp Apply to scalp once a day/30 days benzoyl peroxide 5 % external wash - posterior scalp Lather on scalp then rinse well daily, 30 day supply Related Procedures Ambulatory referral to Dermatology 2. Seborrheic keratosis (2) Right Medial Thigh, Torso - Posterior (Back) Stuck on verrucous, santos-brown papules and plaques. Patient was counseled regarding these benign growths. Removal is normally not necessary, but they may be removed if they are symptomatic or for cosmetic reasons. 3. Inflamed seborrheic keratosis Left Anterior Neck Brown stuck on verrucous scaly papules, symptomatic Cryotherapy today, see procedure note. Diagnosis: Inflamed seborrheic keratosis Indication: Inflamed Consent: Verbal consent was obtained and risks were discussed, including, but not limited to risks of scarring, darker or long chain dyeing machine operator pigmentary changes, recurrence, incomplete removal and infection. Method: Liquid nitrogen was used to treat the lesion(s) with two 5-10 second freeze-thaw cycles Number of lesions treated: 1 Post-procedure instructions: Instructions were given verbally and in writing. The office will be contacted if the lesion fails to resolve despite treatment, or if a side effect develops such as abnormal crusting, scabbing, redness or tenderness Cryotherapy, skin lesion - Left Anterior Neck 4. Acrochordon Right Axilla Pedunculated papule, symptomatic The patient was informed that skin tags are benign growths usually found around the neck or in the axillae. Due to symptoms/inflammation, removal performed today, see procedure note. Procedure: Skin tag removal Informed consent: Discussed risks (permanent scarring, infection, pain, bleeding, bruising, redness, and recurrence of the lesion) and benefits of the procedure, as well as the alternatives. He is aware that skin tags are benign lesions, and their removal is often not considered medically necessary. Informed consent was obtained Anesthesia: 1% lidocaine with epinephrine and a 1:10 solution of 8.4% sodium bicarbonate, Quantity:0.5 cc The area was prepared and draped in a standard fashion. Snip removal was performed. Bleeding was controlled with electrocautery A sterile dressing was applied. The patient tolerated procedure well. The patient was instructed on post-op care. Number of lesions removed: 1 5. Neoplasm of unspecified behavior of bone, soft tissue, and skin Right chest Irregular brown macule Lesion biopsy Type of biopsy: tangential Informed consent: discussed and consent obtained Informed consent comment: The risks and benefits of the biopsy were discussed. Risks include but are not limited to bleeding, infection, scarring, pain, and nerve damage. An opportunity to ask questions prior to the procedure was permitted and all questions were answered. Patient was prepped and draped in usual sterile fashion: area cleansed with alcohol. Anesthesia: the lesion was anesthetized in a standard fashion Anesthetic: 1% lidocaine w/ epinephrine 1-100,000 buffered w/ 8.4% NaHCO3 Instrument used: DermaBlade Hemostasis achieved with: electrodesiccation Outcome: patient tolerated procedure well Outcome comment: The specimen was placed in a prelabeled formalin container to be sent for pathology Post-procedure details: sterile dressing applied and wound care instructions given Post-procedure details comment: Emphasized need to contact clinic for any signs of infection, uncontrollable bleeding, or complications. Dressing type: bandage Additional details: Photo taken yes Amount of lidocaine used: 0.5 cc Specimen A - Dermatopathology exam Differential Diagnosis: Atypical nevus Check Margins: No Size of lesion: 0.4 x 0.3 cm Biopsy today, see procedure note. Next Visit: 2 months (folliculitis, offer FBSE) documented in this encounterPhelps [id number] History of Present illness Narrative* JANINE Goss - 07/08/2024 8:45 AM EDTAssociated Order(s): Cast / Splint / Fx Post-Procedure Diagnose(s): Right ankle tendonitis Images from the original note were not included. HISTORY OF PRESENT ILLNESS: EST PT Mervat Grayson is an 73 y.o. @ male. EST PT WITH NEW C/O RT FOOT PAIN ~2WKS AGO-PT TWISTED FOOT WRONG AND HAS PAIN LATERAL FOOT~2WKS AGO(~06/24/24) XRAY RT FOOT TODAY EPIC 07/08/24 PAIN 5TH MT REGION- +SWELLING/BRUISING- PAIN GENERALLY WITH WB-INCREASE PAIN WITH STAIRS AND PROLONG STANDING- AMBULATES WITH LIMP- PT ICES/ELEVATES- NO PAIN MEDS PT IS ON XARELTO ALLERGIES: No Known Allergies HOME MEDICATIONS: Current Outpatient Medications Medication Instructions Ascorbic Acid (Vitamin C) 500 MG capsule Oral calcium carbonate (CALCIUM 600) 600 mg, Oral, 2 times daily with meals carvedilol (COREG) 6.25 mg, Oral, 2 times daily with meals finasteride (PROSCAR) 5 mg, Oral, Daily, Do not crush, chew, or split. hydroCHLOROthiazide (HYDRODiuril) 12.5 MG tablet Oral Misc Natural Products (GLUCOSAMINE CHOND CMP ADVANCED PO) Oral predniSONE (DELTASONE) 5 mg, Oral, Daily RT Rivaroxaban (XARELTO PO) Oral tamsulosin (Flomax) 0.4 MG 24 hr capsule Take 1 capsule every day by oral route. valsartan (Diovan) 80 MG tablet 1 tablet, Oral, Daily PHYSICAL EXAM: Foot/Ankle Musculoskeletal Exam Gait Gait is normal. Limp: right Gait additional comments: + pes planus. Inspection Right Right foot/ankle inspection is normal. Erythema: none Effusion: none Edema: none Ecchymosis: none Deformity: none Alignment: normal Palpation Right Right foot/ankle palpation is unremarkable. Increased warmth: none Masses: none Tenderness: present Peroneal tendon: mild Peroneal tendon comment: + tenderness into cuboid and 5th MT base. Range of Motion Right Right foot/ankle range of motion is normal and full. Strength Right Right foot/ankle strength is normal. Tibialis anterior: 5/5. Extensor hallucis longus: 5/5. Flexor hallucis longus: 5/5. Gastroc/soleus: 5/5. Tibialis posterior: 5/5. Peroneals: 4+/5. Peroneals are affected by pain. Neurovascular Right Right foot/ankle neurovascular exam is normal. Pulses - PT: normal Posterior tibial: 2+ Capillary refill: warm and well-perfused Dorsum foot: normal Lateral foot: normal Plantar foot: normal Achilles: 2/4 Clonus: normal Special Tests Right Anterior drawer test: negative Beyer's test: negative General Constitutional: appears stated age Labored breathing: no Psychiatric: normal mood and affect Neurological: oriented x3 Skin: intact Lymphadenopathy: none Foot Exam Right Foot/Ankle Neurovascular Posterior tibial: 2+ Achilles reflex: 2/4 Range of Motion Normal right ankle ROM Tests Beyer squeeze: negative Vitals: There is no height or weight on file to calculate BMI. Tobacco Use: Low Risk (07/08/2024) Patient History Smoking Tobacco Use: Never Smokeless Tobacco Use: Never Passive Exposure: Not on file Alcohol Use: Not on file IMAGING: XR foot 3+ views right Imaging Result: Cast / Splint / Fx Date/Time: 07/08/2024 9:47 AM Performed by: JANINE Goss Authorized by: JANINE Goss Consent given by: patient Site marked: site marked Injury Location details: right ankle Pre-procedure assessment neurovascularly intact Range of motion: normal Procedure Manipulation performed? no manipulation performed Immobilization: splint and brace Post-procedure assessment neurovascularly intact Range of motion: unchanged Patient tolerance: patient tolerated the procedure well with no immediate complications Orders Placed This Encounter Procedures Cast / Splint / Fx This order was created via procedure documentation XR foot 3+ views right Order Specific Question: Reason for exam: Answer: PAIN ASSESSMENT: ICD-10-CM 1. Right foot pain M79.671 XR foot 3+ views right 2. Right ankle tendonitis M77.51 PLAN: Xray today without obvious fx or stress reaction.. pain 5th MT base and peroneals after twisting injury ,,, recommend Orthotics ( pt has at home) and ASO ankle brace for support. Pt given HEP. Pt may call if symptoms worsen or new symptoms develop. Questions answered in laymen terms at the bedside. The diagnosis, home exercise plan and any ongoing restrictions/ recommendations reviewed. If unable to be reached in office, I recommend evaluation at nearest Emergency Room if any symptoms worsened or new symptoms develop for requiring urgent evaluation. documented in this encounterPhelps [id number] Telephone encounter Note* Telephone Encounter - Larua Slaughter RN - 06/26/2024 2:42 PM EDT Please sign pended labs for 5 month f/u if agreeable-will draw with CT Thank You! Laura Slaughter RN [facility]09-06-[facility] Miscellaneous Notes* Telephone Encounter - Laura Slaughter RN - 06/26/2024 2:42 PM EDT Please sign pended labs for 5 month f/u if agreeable-will draw with CT Thank You! Laura Slaughter RN documented in this encounterR[facility]08-15-2024 Miscellaneous Notes* [facility] - Norman Mauricio RT(R) - 06/04/2024 11:40 AM EDT Radiology Service Progress Note PATIENT NAME: Mervat Grayson DATE OF SERVICE: June 04, 2024 TIME: 1:43 PM PATIENT IDENTITY VERIFICATION COMPLETED USING TWO (2) IDENTIFIERS: Name and Date of confirmedby patient verbally and Name and Date of confirmed by identification band. FALL SCREENING: Has the patient had 2 falls in the last year or 1 fall with injury or currently using an Ambulatory Assistive Device (Walker, Cane, Wheelchair, Crutches, etc.)? No PATIENT GENDER DATA: Male PATIENT RELEVANT IMPLANT DATA REVIEWED: Yes PATIENT PRESENTS WITH AN IMPLANTABLE OR ATTACHED DRAINAGE ENGINEER: No RADIOLOGY DEPARTMENT: MR; Exam(s) Completed: Body: Rectal PERIPHERAL IV DATA: Site assessment: Clean,Dry and Intact, Site disposition Discontinued SIGNED BY: RT Dayna(R) June 04, 2024 1:43 PM documented in this encounterR[facility]08-15-2024 Nurse Note* Estrella Mcmillan RN - 06/04/2024 11:40 AM EDT Radiology Service Progress Note DATE OF SERVICE: June 04, 2024 TIME: 12:31 PM PATIENT WEIGHT:248lbsLBS PATIENT IDENTITY VERIFICATION COMPLETED USING TWO (2) STANDARD IDENTIFIERS: Name and Date of confirmed by patient verbally. FALL SCREENING: Has the patient had 2 falls in the last year or 1 fall with injury or currently using an Ambulatory Assistive Device (Walker, Cane, Wheelchair, Crutches, etc.)? No PATIENT GENDER DATA: Male ALLERGIES: Reviewed and unchanged CONTRAST ALLERGY: No IV SITE: Ambulatory: A power injectable Mediport was accessed in the Right chest with a 1 inch 20 gauge needle. Blood Return, Flushed easily with normal saline, Good Blood Return Post Injection, Flushed with 20 cc saline followed by Heparin 500 units/5 cc, and No Complications IV SITE APPEARANCE: Clean,Dry and Intact SIGNATURE: Shala Woodson RN PATIENT NAME: Mervat Grayson DATE: June 04, 2024 TIME: 12:31 PM Port de accessed by Renee VAUGHAN. Brisk blood return noted Flushed with 20 cc NS. Pt tolerated well. Band aid placed. [facility]08-15-[facility] Nurse Note* Estrella Mcmillan RN - 06/04/2024 11:40 AM EDT Radiology Service Progress Note DATE OF SERVICE: June 04, 2024 TIME: 12:31 PM PATIENT WEIGHT:248lbsLBS PATIENT IDENTITY VERIFICATION COMPLETED USING TWO (2) STANDARD IDENTIFIERS: Name and Date of confirmed by patient verbally. FALL SCREENING: Has the patient had 2 falls in the last year or 1 fall with injury or currently using an Ambulatory Assistive Device (Walker, Cane, Wheelchair, Crutches, etc.)? No PATIENT GENDER DATA: Male ALLERGIES: Reviewed and unchanged CONTRAST ALLERGY: No IV SITE: Ambulatory: A power injectable Mediport was accessed in the Right chest with a 1 inch 20 gauge needle. Blood Return, Flushed easily with normal saline, Good Blood Return Post Injection, Flushed with 20 cc saline followed by Heparin 500 units/5 cc, and No Complications IV SITE APPEARANCE: Clean,Dry and Intact SIGNATURE: Shala Woodson RN PATIENT NAME: Mervat Grayson DATE: June 04, 2024 TIME: 12:31 PM Port de accessed by Renee VAUGHAN. Brisk blood return noted Flushed with 20 cc NS. Pt tolerated well. Band aid placed. documented in this encounterR[facility]08-15-2024 Progress note* [facility] - [facility] Mauricio RT(R) - 06/04/2024 11:40 AM EDT Radiology Service Progress Note PATIENT NAME: Mervat Grayson DATE OF SERVICE: June 04, 2024 TIME: 1:43 PM PATIENT IDENTITY VERIFICATION COMPLETED USING TWO (2) IDENTIFIERS: Name and Date of confirmedby patient verbally and Name and Date of confirmed by identification band. FALL SCREENING: Has the patient had 2 falls in the last year or 1 fall with injury or currently using an Ambulatory Assistive Device (Walker, Cane, Wheelchair, Crutches, etc.)? No PATIENT GENDER DATA: Male PATIENT RELEVANT IMPLANT DATA REVIEWED: Yes PATIENT PRESENTS WITH AN IMPLANTABLE OR ATTACHED DRAINAGE ENGINEER: No RADIOLOGY DEPARTMENT: MR; Exam(s) Completed: Body: Rectal PERIPHERAL IV DATA: Site assessment: Clean,Dry and Intact, Site disposition Discontinued SIGNED BY: RT Dayna(R) June 04, 2024 1:43 PM [facility]-30-[facility] Telephone encounter Note* Telephone Encounter - Chelsie Kolb RN - 05/19/2024 3:42 PM EDT Called patient and left message telling him he is due for a colonoscopy with Dr. Norman for cancer surveillance. Asked if 07/21 or 08/18 would work for him. [facility]07-30-2024 Miscellaneous Notes* Telephone Encounter - Chelsie Kolb RN - 05/19/2024 3:42 PM EDT Called patient and left message telling him he is due for a colonoscopy with Dr. Norman for cancer surveillance. Asked if 07/21 or 08/18 would work for him. documented in this encounterR[facility]07-30-2024 History of Present illness Narrative* Chelsie Kolb RN - 05/19/2024 3:37 PM EDT Colonoscopy order for rectal cancer surveillance documented in this encounterRivers[facility]05-22-2024 History of Present illness Narrative* Minerva Anderson MD - 03/11/2024 5:37 PM EDT PATIENT NAME: Mervat Grayson DATE: 03/12/2024 PRIMARY CARE PHYSICIAN: Dr. Lorenzo Marin OTHER PHYSICIANS: Dr. Mervat Slaughter, Dr. Thalia Troy, Dr. Kiko Treadwell, Dr. Key, Dr. Micha Mccabe, Dr. Shaheed Norman Portions of this encounter note have been copied from the note from 11/21/2023 and has been updated where appropriate, and reflect my current medical decision making from today. CC: This is a 73 year old male with localized rectal cancer, seen for scheduled follow-up and continued treatment. INTERIM HISTORY: Since the patient's last visit here he has had no significant medical changes. Most recent rectal MRI, CT scans, and flex sig have revealed no evidence of residual disease. He still has rectal urgency/frequency but otherwise no GI symptoms. Chronic back pain unchanged. 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 MEDICATIONS: Current Outpatient Medications Medication Sig XARELTO 20 mg tablet TAKE ONE TABLET BY MOUTH DAILY WITH DINNER calcium carbonate (CALCIUM 600 ORAL) Take 1 tablet by mouth once daily. glucosamine/chondr perez A sod (GLUCOSAMINE-CHONDROITIN) 1,500-1,200 mg/30 mL liqd Take by mouth once daily. predniSONE (DELTASONE) 5 mg tablet Take 5 mg by mouth once daily. valsartan (DIOVAN) 80 mg tablet Take 80 mg by mouth once daily. carvedilol (COREG) 6.25 mg tablet Take 6.25 mg by mouth twice daily with meals. tamsulosin ER (FLOMAX) 0.4 mg cap Take [...] paralysis, seizures or tremors PHYSICAL EXAM: BP 124/84 Pulse 81 Temp 36.2 C (97.1 F) (Temporal) Resp 16 Ht 185.4 cm (6' 0.99 ) Wt 112.7 kg (248 lb 7.3 oz) SpO2 98% BMI 32.79 kg/m ECOG 0 Exam limited to gross [...] petechiae. PATHOLOGY: 04/09/2023 Anal canal, polyp, biopsy: Squamous mucosa polyp. 08/20/2022 [place]oscopic [place] Adenocarcinoma of colon (mass at anal verge) Mismatch repair gene -normal expression RADIOLOGY/OTHER STUDIES: 02/25/2024 Sigmoidoscopy (Dr. Norman) Scar in the distal rectum. The examination was otherwise normal. 12/20/2023 CT chest IMPRESSION: 1. Stable nonspecific subcentimeter pulmonary nodules as described above. There are also stable small nonspecific mediastinal lymph nodes and right hilar lymph node. Would advise continued close attention on follow-up/surveillance scans. 12/20/2023 CT abdomen/pelvis IMPRESSION: 1. No evidence of metastatic disease in the abdomen or pelvis. 12/03/2023 MRI rectum IMPRESSION: DENSE SCAR INVOLVING THE LOW RECTAL WALL / ANAL CANAL, UNCHANGED FROM PRIOR. NO RESIDUAL VIABLE TUMOR. NO LYMPHADENOPATHY. 11/05/2023 Sigmoidoscopy One 3 mm polyp in the rectum. Scar in the distal rectum. The examination was otherwise normal. 07/09/2023 Sigmoidoscopy Scar in the distal rectum. Examination otherwise normal. 06/20/2023 CT chest IMPRESSION: 1. Several bilateral nonspecific pulmonary nodules are again identified, stable in size and number from the prior study of 12/10/2022. 2. Mild right hilar adenopathy appears more conspicuous. Additional mildly prominent hilar and mediastinal lymph nodes elsewhere, stable. Correlation with continued follow-up examinations is recommended. 06/20/2023 CT abdomen/pelvis IMPRESSION: Stable CT examination of the abdomen. No CT evidence for metastatic disease. Incidental note is again made of cholelithiasis and bilateral nonobstructive nephrolithiasis. 04/18/2023 MRI rectum IMPRESSION: Dense scar in [...] was benign. 01/22/2023 Lower extremity Doppler ([facility] Extensive deep venous thrombosis of the left [...] to the thorax. 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 Few nonenlarged 2 to 3 mm mesorectal lymph nodes. No suspicious lymphadenopathy. 09/11/2022 CT chest, abdomen, pelvis ([facility]) Possible low-attenuation lesion right hepatic lobe under centimeter in size. MRI could better characterize this should be performed with IV contrast. Nodular density within the left adrenal gland which could represent metastasis or adenoma. Multiple noncalcified pulmonary nodules worrisome for metastatic disease. Largest measures approxi-1 cm in the right upper lobe. LABORATORY DATA: Hemoglobin (g/dL) Date Value 02/11/2024 13.1 08/04/2018 14.3 Hematocrit (%) Date Value 02/11/2024 40.2 08/04/2018 43.1 WBC (k/uL) Date Value 02/11/2024 6.15 08/04/2018 6.24 Platelet Count (k/uL) Date Value 02/11/2024 226 08/04/2018 216 CEA 09/05/2022 14.4 09/17/2022 15.7 10/02/2022 14.1 10/29/2022 10.5 11/19/2022 3.7 12/17/2022 1.7 01/22/2023 2.4 03/19/2023 2.0 09/05/2023 1.8 11/21/2023 1.8 ASSESSMENT/PLAN: 1. Rectal cancer (HCC) - ICD9: [...] and bleeding resolved. Follow-up CT scans 12/10/2022 stable with no evidence of metastatic disease. Subsequently the patient continued neoadjuvant treatment with chemotherapy consisting of FOLFOX x7 cycles 12/25/2022 through 03/21/2023. It was then elected to discontinue chemotherapy to minimize toxicity. Follow-up colonoscopy 04/09/2023 revealed no evidence of disease Rectal MRI 04/18/2023 revealed no evidence of disease. It was then elected to postpone surgery and proceed with active surveillance. Most recent CT scans 12/20/2023 stable. Most recent flex sig 02/25/2024 stable. Most recent rectal MRI 12/03/2023 stable. Currently the patient has no evidence of disease. At this time the patient will continue with active surveillance: Exam, KHRIS, CEA and flex sig: year 0-2 every 3 months, years 3-4 every 6 months, years 5-10 yearly MRI pelvis: Years 0-4 every 6 months, years 5-[address] chest, abdomen, pelvis: Years 0-2 every 6 months, years 3-10 yearly Colonoscopy: 1 year after treatment, then every 3 years Next pelvic MRI will be scheduled for May. Next CT scans scheduled for July. The patient willundergo a full colonoscopy per Dr. Norman in 4 to 5 months. I will see him back in July for follow-up. 2. Rheumatoid arthritis Diagnosed 2005. [...] indefinitely. Minerva Anderson MD documented [facility] this [facility] History and physical note * Dayanara Shaffer MD - 02/25/2024 11:30 AM EDT ENDOSCOPY HISTORY AND PHYSICAL EXAM Mervat Grayson [id number] Subjective HPI: This is a 73 year old male who presents for endoscopy. PAST ANESTHESIA HISTORY: No history of adverse [...] LENS Prior to Admission medications as of 11/21/23 0852 Medication Sig Last Dose Taking XARELTO 20 mg tablet TAKE ONE TABLET BY MOUTH DAILY WITH DINNER calcium carbonate (CALCIUM 600 ORAL) Take 1 tablet by mouth once daily. glucosamine/chondr perez A sod (GLUCOSAMINE-CHONDROITIN) 1,500-1,200 mg/30 mL liqd Take by mouth once daily. predniSONE (DELTASONE) 5 mg tablet Take 5 mg by mouth once daily. valsartan (DIOVAN) 80 mg tablet Take 80 mg by mouth once daily. carvedilol (COREG) 6.25 mg tablet Take 6.25 mg by mouth twice daily with meals. tamsulosin ER (FLOMAX) 0.4 mg cap Take [...] CARDIAC: Regular rhythm,Regular rate Assessment/Plan ASA Class: ASA Class:: Patient with mild systemic disease Active Problems: * No active hospital problems. * Resolved Problems: * No resolved hospital problems. * Medication and Non-Pharmacologic VTE Prophylaxis/Anticoagulants VTE Prophylaxis: not indicated for procedure Provisional Diagnosis/Treatment Plan: flexible sigmoidoscopy under MAC sedation Consent has been signed SEDATION GOAL: Moderate Dayanara Shaffer MD 02/25/2024 11:22 AM Associated attestation - Deborah Norman MD - 02/25/2024 11:28 AM EDT Attending Note I evaluated the patient and personally participated in the tripp components. I agree with the resident's findings and plan as documented and have discussed the case and management of the patient's carewith the resident. Signature: Deborah Norman MD Date: 02/25/2024 Time: 11:28 AM [facility] History and physical note* Dayanara Shaffer MD - 02/25/2024 11:30 AM EDT ENDOSCOPY HISTORY AND PHYSICAL EXAM Mervat Grayson [id number] Subjective HPI: This is a 73 year old male who presents for endoscopy. PAST ANESTHESIA HISTORY: No history of adverse [...] LENS Prior to Admission medications as of 11/21/23 0852 Medication Sig Last Dose Taking XARELTO 20 mg tablet TAKE ONE TABLET BY MOUTH DAILY WITH DINNER calcium carbonate (CALCIUM 600 ORAL) Take 1 tablet by mouth once daily. glucosamine/chondr perez A sod (GLUCOSAMINE-CHONDROITIN) 1,500-1,200 mg/30 mL liqd Take by mouth once daily. predniSONE (DELTASONE) 5 mg tablet Take 5 mg by mouth once daily. valsartan (DIOVAN) 80 mg tablet Take 80 mg by mouth once daily. carvedilol (COREG) 6.25 mg tablet Take 6.25 mg by mouth twice daily with meals. tamsulosin ER (FLOMAX) 0.4 mg cap Take [...] CARDIAC: Regular rhythm,Regular rate Assessment/Plan ASA Class: ASA Class:: Patient with mild systemic disease Active Problems: * No active hospital problems. * Resolved Problems: * No resolved hospital problems. * Medication and Non-Pharmacologic VTE Prophylaxis/Anticoagulants VTE Prophylaxis: not indicated for procedure Provisional Diagnosis/Treatment Plan: flexible sigmoidoscopy under MAC sedation Consent has been signed SEDATION GOAL: Moderate Dayanara Shaffer MD 02/25/2024 11:22 AM Associated attestation - Deborah Norman MD - 02/25/2024 11:28 AM EDT Attending Note I evaluated the patient and personally participated in the tripp components. I agree with the resident's findings and plan as documented and have discussed the case and management of the patient's carewith the resident. Signature: Deborah Norman MD Date: 02/25/2024 Time: 11:28 AM documented in this encounterR[facility] Hospital Discharge instructions Patient Education 02/14/2024 10:36:23 Benign Prostatic Hyperplasia Benign Prostatic Hyperplasia Benign prostatic hyperplasia (BPH) is an enlarged prostate gland that is caused by the normal agingprocess. The prostate may get bigger as a man gets older. The condition is not caused by cancer. The prostate is a walnut-sized gland that is involved in the production of semen. It is located in front of the rectum and below the bladder. The bladder stores urine. The urethra carries stored urine ou t of the body. An enlarged prostate can press on the urethra. This can make it harder to pass urine. The buildup of urine in the bladder can cause infection. Back pressure and infection may progress to bladder damage and kidney (renal) failure. What are the causes? This condition is part of the normal aging process. However, not all men develop problems from thiscondition. If the prostate enlarges away from the urethra, urine flow will not be blocked. If it enlarges toward the urethra and compresses it, there will be problems passing urine. What increases the risk? This condition is more likely to develop in men older than 50 years. What are the signs or symptoms? Symptoms of this condition include: Getting up often during the night to urinate. Needing to urinate frequently during the day. Difficulty starting urine flow. Decrease in size and strength of your urine stream. Leaking (dribbling) after urinating. Inability to pass urine. This needs immediate treatment. Inability to completely empty your bladder. Pain when you pass urine. This is more common if there is also an infection. Urinary tract infection (UTI). How is this diagnosed? This condition is diagnosed based on your medical history, a physical exam, and your symptoms. Tests will also be done, such as: A post-void bladder scan. This measures any amount of urine that may remain in your bladder after you finish urinating. A digital rectal exam. In a rectal exam, your health care provider checks your prostate by putting a lubricated, gloved finger into your rectum to feel the back of your prostate gland. This exam detects the size of your gland and any abnormal lumps or growths. An exam of your urine (urinalysis). A prostate specific antigen (PSA) screening. This is a blood test used to screen for prostate cancer. An ultrasound. This test uses sound waves to electronically produce a picture of your prostate gland. Your health care provider may refer you to a specialist in kidney and prostate diseases (urologist). How is this treated? Once symptoms begin, your health care provider will monitor your condition (active surveillance or watchful waiting). Treatment for this condition will depend on the severity of your condition. Treatment may include: Observation and yearly exams. This may be the only treatment needed if your condition and symptoms are mild. Medicines to relieve your symptoms, including: ?Medicines to shrink the prostate. ?Medicines to relax the muscle of the prostate. Surgery in severe cases. Surgery may include: ?Prostatectomy. In this procedure, the prostate tissue is removed completely through an open incision or with a laparoscope or robotics. ?Transurethral resection of the prostate (TURP). In this procedure, a tool is inserted through the opening at the tip of the penis (urethra). It is used to cut away tissue of the inner core of the prostate. The pieces are removed through the same opening of the penis. This removes the blockage. ?Transurethral incision (TUIP). In this procedure, small cuts are made in the prostate. This lessens the prostate's pressure on the urethra. ?Transurethral microwave thermotherapy (TUMT). This procedure uses microwaves to create heat. The heat destroys and removes a small amount of prostate tissue. ?Transurethral needle ablation (TUNA). This procedure uses radio frequencies to destroy and remove a small amount of prostate tissue. ?Interstitial laser coagulation (ILC). This procedure uses a laser to destroy and remove a small amount of prostate tissue. ?Transurethral electrovaporization (TUVP). This procedure uses electrodes to destroy and remove a small amount of prostate tissue. ?Prostatic urethral lift. This procedure inserts an implant to push the lobes of the prostate away from the urethra. Follow these instructions at home: Take [id number] and prescription medicines only as told by your health care provider. Monitor your symptoms for any changes. Contact your health care provider with any changes. Avoid drinking large amounts of liquid before going to bed or out in public. Avoid or reduce how much caffeine or alcohol you drink. Give yourself time when you urinate. Keep all follow-up visits. This is important. Contact a health care provider if: You have unexplained back pain. Your symptoms do not get better with treatment. You develop side effects from the medicine you are taking. Your urine becomes very dark or has a bad smell. Your lower abdomen becomes distended and you have trouble passing urine. Get help right away if: You have a fever or chills. You suddenly cannot urinate. You feel light-headed or very dizzy, or you faint. There are large amounts of blood or clots in your urine. Your urinary problems become hard to manage. You develop moderate to severe low back or flank pain. The flank is the side of your body between the ribs and the hip. These symptoms may be an emergency. Get help right away. Call 911. Do not wait to see if the symptoms will go away. Do not drive yourself to the hospital. Summary Benign prostatic hyperplasia (BPH) is an enlarged prostate that is caused by the normal aging process. It is not caused by cancer. An enlarged prostate can press on the urethra. This can make it hard to pass urine. This condition is more likely to develop in men older than 50 years. Get help right away if you suddenly cannot urinate. This information is not intended to replace advice given to you by your health care provider. Make sure you discuss any questions you have with your health care provider. Document Revised: 04/25/2022 Document Reviewed: 04/25/2022 [employer] Patient Education 2022 [facility]. Follow Up Care 09/16/2023 12:00:44 With:RYLEE ARRINGTON, Corey Casillas, URL Address: [address] [place], [place] [id number]- When: Unknown [facility] Dine perfect 03-27-2024 Hospital Discharge instructions Follow Up Care 01/15/2024 14:20:09 With:Santiago Kong MD Address: When:Within 6 Month(s) With:Santiago Kong MD Address: When:Within 6 Month(s) [facility]03-04-2024 Miscellaneous Notes* Telephone Encounter - Minal Corey RN - 12/23/2023 1:07 PM EST Pt informed of Its Time Compliance's message and denies any questions, needs or concerns at this time. Appointment verified. Minal Corey RN * Telephone Encounter - Minal Corey RN - 12/23/2023 1:07 PM EST ----- Message from Minerva Anderson MD sent at 12/23/2023 12:53 PM EST ----- Please inform the patient that his scans and labs are very stable with no evidence of disease. We will continue as planned, and see him back as scheduled. documented in this encounterR[facility]03-[facility]24 History of Present illness Narrative* Laura Slaughter RN - 12/20/2023 9:15 AM EST Radiology Service Progress Note DATE OF SERVICE: December 20, 2023 TIME: 9:04 AM PATIENT WEIGHT: 243LBS PATIENT IDENTITY VERIFICATION COMPLETED USING TWO (2) STANDARD IDENTIFIERS: Name and Date of confirmed by patient verbally. FALL SCREENING: Has the patient had 2 falls in the last year or 1 fall with injury or currently using an Ambulatory Assistive Device (Walker, Cane, Wheelchair, Crutches, etc.)? No PATIENT GENDER DATA: Male ALLERGIES: Reviewed and unchanged CONTRAST ALLERGY: No EXAM: CT -CONTRAST INDUCED NEPHROPATHY RISK FACTORS: Patient age > 60 years CREATININE: Creatinine Date Value Ref Range Status 11/21/2023 1.09 0.73 - 1.22 mg/dL Final 08/27/2023 1.21 0.73 - 1.22 mg/dL Final 06/20/2023 1.14 0.73 - 1.22 mg/dL Final Estimated Glomerular Filtration Rate Date Value Ref Range Status 11/21/2023 73 >=60 mL/min/1.73m Final Comment: Estimated Glomerular Filtration Rate (eGFR) is calculated using the 2020 CKD-EPI creatinine equation. This equation utilizes serum creatinine, sex, and age as parameters. The creatinine assay has traceable calibration to isotope dilution- mass spectrometry. Refer to KDIGO guidelines for clinical interpretation. In patients with unstable renal function, e.g. those with acute kidney injury, the eGFRmay not accurately reflect actual GFR. eGFR- Date Value Ref Range Status 08/04/2018 >60 Final P.O.C.T. RESULTS: POC done: Yes, See Lab Tab December 20, 2023 TREATMENT: N/A IV SITE: Ambulatory: A power injectable Mediport was accessed in the Right chest with a .75 inch 20gauge needle. Blood Return, Flushed easily with normal saline, and No ComplicationsPort flushed with 30cc NS post scan IV SITE APPEARANCE: Clean,Dry and Intact SIGNATURE: Laura Slaughter RN PATIENT NAME: Mervat Grayson DATE: December 20, 2023 TIME: 9:04 AM * Denisha Allen RT(R) - 12/20/2023 9:15 AM EST Radiology Service Progress Note PATIENT NAME: Mervat Grayson DATE OF SERVICE: December 20, 2023 TIME: 9:20 AM PATIENT IDENTITY VERIFICATION COMPLETED USING TWO (2) IDENTIFIERS: Name and Date of confirmedby patient verbally. FALL SCREENING: Has the patient had 2 falls in the last year or 1 fall with injury or currently using an Ambulatory Assistive Device (Walker, Cane, Wheelchair, Crutches, etc.)? No PATIENT GENDER DATA: Male PATIENT RELEVANT IMPLANT DATA REVIEWED: Yes PATIENT PRESENTS WITH AN IMPLANTABLE OR ATTACHED DRAINAGE ENGINEER: POWER port RADIOLOGY DEPARTMENT: CT; Exam(s) Completed: Chest Abdomen Pelvis With IV and Oral contrast PERIPHERAL IV DATA: Not applicable SIGNED BY: RT Johny(R) December 20, 2023 9:20 AM POWER port scanned 12/20/3022 documented in this encounterR[facility]02-13-2024 Miscellaneous Notes* [facility] - Blessed Muniz RT(R) - 12/03/2023 2:00 PM EST Radiology Service Progress Note PATIENT NAME: Mervat Grayson DATE OF SERVICE: December 03, 2023 TIME: 2:36 PM PATIENT IDENTITY VERIFICATION COMPLETED USING TWO (2) IDENTIFIERS: Name and Date of confirmedby patient verbally and Name and Date of confirmed by identification band. FALL SCREENING: Has the patient had 2 falls in the last year or 1 fall with injury or currently using an Ambulatory Assistive Device (Walker, Cane, Wheelchair, Crutches, etc.)? No PATIENT GENDER DATA: Male PATIENT RELEVANT IMPLANT DATA REVIEWED: Yes PATIENT PRESENTS WITH AN IMPLANTABLE OR ATTACHED DRAINAGE ENGINEER: No RADIOLOGY DEPARTMENT: MR; Exam(s) Completed: Body: Rectal PERIPHERAL IV DATA: Not applicable SIGNED BY: RT George(Alec) Adrianne NORMAN Tech December 03, 2023 2:36 PM documented in this encounterR[facility]02-13-2024 Nurse Note* Noris Hong RN - 12/03/2023 2:00 PM EST Radiology Service Progress Note DATE OF SERVICE: [...] SIGNATURE: Noris Hong RN PATIENT NAME: Mervat Grayson DATE: December 03, 2023 TIME: 1:54 PM documented in this encounterR[facility]12-21-2023 History of Present illness Narrative* Chelsie Kolb RN - 10/10/2023 8:33 AM EST CEA order documented in this encounterRiverside [facility]12-20-2023 Evaluation + Plan note Extracted from: Title:Pain Managment Follow up Author:Joanne Morales Date:10/09/23 Impression and Plan Patient is a 73-year-old male with a past medical history significant for lumbar spondylosis, lumbar stenosis and lumbar neuritis. he underwent a full course of physical therapy without improvement. Dhhe-hsl-pjpnsvr medications have not helped. He is not [...] 01:45:00 PM Scheduled Provider:Santiago Kong MD [facility] Type:Cardiology Follow Up (FT) Appointment Date:01/03/2024 09:45:00 AM Scheduled Provider:Corey SINGLETON MD Location:[facility] Appointment Type:URO Office Visit Future Scheduled Tests Radiology* XR Abdomen 1 View 09/20/22 [facility]11-08-2023 Miscellaneous Notes* Telephone Encounter - Chelsie Kolb RN - 08/28/2023 9:52 AM EST Scheduled [...] you for your help. documented in this encounterR[facility]10-04-2023 History of Present illness Narrative* Chelsie Kolb RN - 07/24/2023 2:22 PM EDT CEA and sigmoidoscopy order documented in this encounterR[facility]09-26-2023 Evaluation note* Encounter Date Diagnosis Assessment [...] Reviewed xray of [place] [facility] [place], which shows there is prominent narrowing [...] ROM/ pain is minimal with Physical Therapy. [facility] Other 09-19-2023 Miscellaneous Notes* Anesthesia PreOp - [...] SIGNATURE: Toshia Mixon MD PATIENT NAME: Mervat Grayson DATE: July 09, 2023 TIME: 9:22 AM documented in this encounterRivers[facility]09-05-2023 History of Present illness Narrative* Chelsie Kolb RN - 06/25/2023 3:[address] chest, CT abdomen orders documented in this encounterRiverside [facility] Hospital08-31-2023 Miscellaneous Notes* Telephone Encounter - Andree [...] verbalizes understanding. Would like script sent to [facility] in [place]. RACIEL/Andree: Script pended. Denisha Duarte RN documented in this encounterRiverside [facility] Hospital08-31-2023 History of Present illness Narrative* Denisha Allen RT(R) - 06/20/2023 8:45 AM EDT Radiology Service Progress Note PATIENT NAME: Mervat Grayson DATE OF SERVICE: June 20, 2023 TIME: 10:54 AM PATIENT IDENTITY VERIFICATION COMPLETED USING TWO (2) IDENTIFIERS: Name and Date of confirmedby patient verbally. FALL SCREENING: Has the patient had 2 falls in the last year or 1 fall with injury or currently using an Ambulatory Assistive Device (Walker, Cane, Wheelchair, Crutches, etc.)? No PATIENT GENDER DATA: Male PATIENT RELEVANT IMPLANT DATA REVIEWED: Not Applicable RADIOLOGY DEPARTMENT: CT; Exam(s) Completed: Abdomen and Chest With IV and Oral contrast PERIPHERAL IV DATA: Not applicable SIGNED BY: RT Johny(R) June 20, 2023 10:54 AM POWER port scanned 12/20/2022-NS documented in this encounterRiverside [facility] Hospital08-30-2023 Miscellaneous Notes* Telephone Encounter - Denisha [...] Etelvina Allen notified of need for labs. Dneisha Duarte RN documented in this encounterRiverside [facility] Hospital08-29-2023 Evaluation note* Encounter Date Diagnosis Assessment [...] 6 months. May, Neuropathy (ICD-10 - G62.9) [facility] Other 08-08-2023 History of Present illness Narrative* Minerva Anderson MD - 05/28/2023 7:41 AM EDT PATIENT NAME: Mervat Grayson DATE: 05/28/2023 PRIMARY CARE PHYSICIAN: Dr. Lorenzo Marin OTHER PHYSICIANS: Dr. Mervat Slaughter, Dr. Thalia Troy, Dr. Kiko Treadwell, Dr. Key, Dr. Micha Mccabe, Dr. Shaheed Norman Portions of this encounter [...] Squamous mucosa polyp. 08/20/2022 Colonoscopic biopsy [place] Adenocarcinoma of colon (mass at anal verge) [...] was benign. 01/22/2023 Lower extremity Doppler ([facility]) Extensive deep venous thrombosis of the left [...] to the thorax. 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 Few nonenlarged 2 to 3 mm mesorectal lymph nodes. No suspicious lymphadenopathy. 09/11/2022 CT chest, abdomen, pelvis ([facility]) Possible low-attenuation lesion right hepatic lobe under [...] months, years 3-4 every 6 months, years 5- yearly MRI pelvis: Years 0-4 every 6 [...] indefinitely. Minerva Anderson MD documented in this encounterRiverside [facility]07-25-2023 Miscellaneous Notes* Telephone Encounter - Denisha Duarte RN - 05/14/2023 8:22 AM EDT Pt here for repeat potassium today. Lab orders pended. Denisha Duarte RN documented in this encounterRiverside [facility] Hospital07-18-2023 Evaluation + Plan note Extracted from: Title:NPV Author:Anthony ARRINGTON, Bryon Ortiz Date :05/07/23 Impression and Plan 72-year-old gentleman [...] Tests Radiology* XR Abdomen 1 View 09/20/22 [facility]07-14-2023 Miscellaneous Notes* Telephone Encounter - Chelsie Kolb RN - 05/03/2023 3:05 PM EDT Returned call. Left voice message telling him we will schedule his sigmoidoscopy with Dr. Norman on 07-09-23 and will send him the prep information through My Chart. * Telephone Encounter - Kraig Herring - 05/03/2023 2:41 PM EDT Pt calling to let Chelsie know that 07/09/23Saturday would be his best option for colonoscopy. Contact #: [phone] documented in this encounterRiverside Methodist Hospital07-14-2023 Miscellaneous Notes* Telephone Encounter - Chelsie Kolb RN - 05/03/2023 9:39 AM EDT Called [...] and CT in September. documented in this encounterRiverside Methodist Hospital07-14-2023 Miscellaneous Notes* Telephone Encounter - Chelsie Kolb RN - 05/03/2023 9:21 AM EDT Sigmoidoscopy, CEA, MRI rectum and CT chest/abd orders Flex sig and CEA in q 3 month until March [address] in q 6 months until March 2025 documented in this encounterRiverside Methodist Hospital07-10-2023 Hospital Discharge instructions Patient Education 04/29/2023 09:33:46 Heart-Healthy Eating Plan, [id number] Heart-Healthy Eating Plan Heart-healthy meal planning includes: [...] Fats and oils Meat fat, or shortening. [place] butter, hydrogenated oils, palm oil, coconut oil, [...] provider. Document Revised: 02/15/2022 Document Reviewed: 02/15/2022 [employer] Patient Education 2021 [facility]. Follow Up Care 01/22/2023 16:31:22 With:Dilan ARRINGTON, Santiago Ortiz. Address: When:6 months Comments:Call for sooner apt with new/worsening symptoms [facility]07-07-2023 Miscellaneous Notes* Telephone Encounter - Sonam [...] a supplement. Kana Siddiqui documented in this encounterRiverside Methodist Hospital06-22-2023 Evaluation note* Encounter Date Diagnosis Assessment Notes Treatment Notes Treatment Clinical Notes Mar, Cervical radiculopathy (ICD-10 - M54.12) Will order xray of neck f/e and MRI to rule our any cord compression/involveme nt. Will refer to Pain management Dr Cruz. Will continue with current pharmacological management as prescribed from the emergency room and PCP Dr. Marin. We will add lidocaine patches and OTC [...] or others. We will follow-up with PCP [facility] behavioral health and crisis line [phone] given. Mar, Encounter for tobacco use screening (ICD-10 - Z01.89) Tobacco screening completed never smoker. [employer] Other 06-20-2023 History and physical note* Dayanara Orlando MD - 04/09/2023 11:30 AM EDT [...] not remember last full c-scope, possibly in 2018 PAST ANESTHESIA HISTORY: No history of adverse [...] benefits discussed with patient Consent obtained SIGNATURE: Dayanara Orlando MD PATIENT NAME: Mervat Grayson DATE: April 09, 2023 TIME: 12:18 PM documented in this encounterRiverside Methodist Hospital06-07-2023 Miscellaneous Notes* Telephone Encounter - Columba [...] GRACE Siddiqui * Telephone Encounter - Alpa aCrr RN - 03/26/2023 1:53 PM EDT Will reach out to Dr. Minerva Anderson MD and nursing team for orders to hold Xarelto x2 days prior to scheduled colonoscopy on 04/09/23. documented in this encounterRiverside Methodist Hospital06-06-2023 Miscellaneous Notes* Telephone Encounter - Chelsie Kolb RN - 03/26/2023 1:55 PM EDT Returned call. Told him he can either call the office or send a My Chart message and I'd be happy to answer his questions. * Telephone Encounter - Bre Pruitt - 03/26/2023 1:42 PM EDT Patient called with questions about Colonoscopy and MRI would like to speak with someone. PH:[phone] documented in this encounterRiverside Methodist Hospital06-06-2023 Miscellaneous Notes* Telephone Encounter - Denisha [...] pt. Denisha Duarte, RN documented in this encounterRiverside Methodist Hospital05-31-2023 Miscellaneous Notes* Telephone Encounter - ROYCE Jaffe - 03/20/2023 1:19 PM EDT Results left on patient voicemail. Mervat Grayson's Common Hereditary Cancers Panel plus preliminary evidence [...] the population without disease(benign polymorphism). Please see [employer] message for further discussion. Santiago Lema MS, [facility] Licensed, Certified Genetic Counselor documented in this encounterRiverside Methodist Hospital05-30-2023 History of Present illness Narrative* Minerva Anderson MD - 03/19/2023 6:11 AM EDT PATIENT NAME: Mervat Grayson DATE: 03/19/2023 PRIMARY CARE PHYSICIAN: Dr. Lorenzo Marin OTHER PHYSICIANS: Dr. Mervat Slaughter, Dr. Thalia Troy, Dr. Kiko Treadwell, Dr. Key, Dr. Mciha Mccabe, Dr. Shaheed Norman Portions of this encounter [...] spasms. He was seen at the [facility] on 03/18/2023 for evaluation. Work-up including [...] or petechiae. 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 Few nonenlarged 2 to 3 mm mesorectal lymph nodes. No suspicious lymphadenopathy. 09/11/2022 CT chest, abdomen, pelvis ([facility]) Possible low-attenuation lesion right hepatic lobe under [...] indefinitely. Minerva Anderson MD documented in this encounterRiverside Methodist Hospital05-29-2023 Hospital Discharge instructions Patient Education 03/18/2023 [...] avoid intense exercise for several days. Take qhfz-hcn-cruxzfu and prescription medicines only as told by [...] provider. Document Revised: 04/27/2022 Document Reviewed: 04/27/2022 [employer] Patient Education 2022 [facility]. 03/18/2023 13:40:26 Community-Acquired Pneumonia, Adult Community-Acquired Pneumonia, [...] Follow these instructions at home: Medicines Take adak-plw-vzivgkf and prescription medicines only as told by [...] and water are not available, use hand granular operator. Contact a health care provider if you [...] provider. Document Revised: 07/19/2020 Document Reviewed: 07/19/2020 [employer] Patient Education 2022 [facility]. Follow Up Care 03/18/2023 10:25:52 With:Lorenzo MARIN Address: [address] [place], [place] [id number] Business (1) When:03/21/2023 13:34:29 Comments:Return to the emergency room if your shortness of breath gets worse, your neck pain gets worse or any new symptoms. Be aware that both Argyle and Flexeril can cause drowsiness. [facility]05-29-2023 Evaluation + Plan noteExtracted from: Title:ED Note Author:Yuridia Houser M.D. te:03/18/23 1. Pneumonia (J18.9: Pneumon ia, unspecified organism) 2. Neck muscle spasm (M62.838: Other muscle spasm) Ordered: acetaminophen-hydrocodone, 1 tab(s), Oral, q6hr as needed for pain, 10 tab(s), Refill(s) 0, [id number], 188, cm, 03/18/23 10:50:00 EDT, Height/Length Dosing, 111, kg, 03/18/23 10:50:00 EDT, Weight Dosing Orders: acetaminophen-oxycodone, 1 tab(s), Tab, Oral, Once, Stop date 03/18/23 11:55:00 EDT, STAT, Start date 03/18/23 11:55:00 EDT azithromycin, = 1 packet(s), Oral, As Directed, as directed on package labeling, X 5 day(s), # 6 tab(s), Refills(s) 0, [id number], 188, cm, 03/18/23 10:50:00 EDT, Height/Length Dosing, 111, kg, 03/18/23 10:50:00 EDT, Weight Dosing cyclobenzaprine, 10 mg = 1 tab(s), Oral, TID, PRN for spasm, # 20 tab(s), Refills(s) 0, Pharmacy: [facility] #[id number], 188, cm, 03/18/23 10:50:00 EDT, Height/Length Dosing, [...] Future Appointments Appointment Date:04/29/2023 08:45:00 AM Scheduled Provider:Joanne SANCHEZ CNP Location:[facility].Cardiology Clinic Appointment Type:Cardiology Follow Up ([facility]) Future Scheduled Tests Radiology* XR Abdomen 1 View 09/20/22 [facility]05-24-2023 History of Present illness Narrative* G Saeed Key MD - 03/13/2023 10:31 AM EDT Radiation Oncology - Follow Up Note PATIENT NAME: Mervat Grayson PATIENT DIAGNOSIS: Adenocarcinoma of the lower rectum MRI staged [id number] RADIATION SUMMARY: DATES OF TREATMENT: 10/08/2022- 11/19/2022 [...] on an as-needed basis. Signed by: Dania Key MD cc: Lorenzo Dailey T[facility] [address] [place] [address] No referring provider defined for this encounter. documented in this encounterRiverside Methodist Hospital05-16-2023 History of Present illness Narrative* Emilia Olivas RN - 03/05/2023 9:50 AM EDT HM back to tx room to give pt information on potassium rich diet. Emilia Olivas RN documented in this encounterRiverside Methodist Hospital05-09-2023 Miscellaneous Notes* Telephone Encounter - Samantha Hi RPh - 02/26/2023 12:19 PM EDT Approved for free Xarelto from [employer] through 10/20/23. Prescriptions are filled at their internal pharmacy [facility]. JPAO phone [phone] documented in this encounterRiverside Methodist Hospital05-02-2023 History of Present illness Narrative* Minerva Anderson MD - 02/19/2023 7:22 AM EDT PATIENT NAME: Mervat Grayson DATE: 02/19/2023 PRIMARY CARE PHYSICIAN: Dr. Lorenzo Marin OTHER PHYSICIANS: Dr. Mervat Slaughter, Dr. Thalia Troy, Dr. Kiko Treadwell, Dr. Key, Dr. Micha Mccabe, Dr. Shaheed Norman Portions of this encounter [...] or petechiae. 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 Few nonenlarged 2 to 3 mm mesorectal lymph nodes. No suspicious lymphadenopathy. 09/11/2022 CT chest, abdomen, pelvis ([facility]) Possible low-attenuation lesion right hepatic lobe under [...] indefinitely. Minerva Anderson MD documented in this encounterRiverside Methodist Hospital04-20-2023 Nurse Note* Alpa Carr RN - 02/07/2023 2:36 PM EDT What is the reason for your visit today? New patient consult for rectal cancer Who is your referring physician? Dr. Mccabe. Are you having poor oral intake? NO Have you had unintentional weight loss of 15 lbs/7 Kg in the last 3-6 months? NO Bowels: diarrhea or soft Wound: none Temperature: No Drains: No documented in this encounterRiverside Methodist Hospital04-20-2023 History of Present illness Narrative* Deborah Norman MD - 02/07/2023 2:20 PM EDT COLORECTAL SURGERY February 06, 2023 Mervat Grayson 72 year old This consult was requested by Dr. Mccabe and my final recommendations will be communicated to the requesting health care provider by way of the shared medical record for internal providers or letter via the [employer] Postal Service for external providers. Chief Complaint: rectal cancer History of Present Illness: Mervat Grayson is a 72 year old male presents [...] He had his surgical care established in [place] but wishes to transfer to [place]. Heis doing well with chemotherapy so far. [...] Digital rectal exam reveals indurated ulcer anterior Electrical Appliance Mechanic present: Yes, Alpa Carr Anoscopy: The patient was placed in chest-knee position. After digital exam with a lubricated finger, the scope was easily inserted. Anterior distal ulcer noted. Otherwise normal mucosa was noted. Anoscopy completed. Assessment Assessment and Plan: Mervat Grayson is a 72 year old male with [...] of prior notes from Dr. Anderson, Dr. Mccabe Review of Pathology Review of Imaging: CT Abdomen, MRI Pelvis Review of Labs: CBC, BMP, LFT, Albumin Review of Procedures / Tests: Colonoscopy I have independently interpreted: MRI Pelvis I have discussed Mervat Grayson's treatment plan and/or results with Dr. Anderson, Dr. Mccabe. Risk of morbidity, mortality and/or complications of treatment plan: high Deborah Norman MD Colorectal Surgery documented in this encounterRiverside Methodist Hospital04-17-2023 History of Present illness Narrative* Micha Mccabe MD - 02/04/2023 2:00 PM EDT Chief Compliant: Mervat Grayson, 72 year old male, presents in the office today at the request of Andree Hollis for New Patient Evaluation and Rectal Bleeding. My final recommendations will be communicated back to the requesting physician by the way of the shared medical record, fax, or via [employer]. HPI: Mervat Grayson is a 72 year old male who presents for rectal bleeding and h/o rectal cancer Patient with rectal adenocarcinoma that was diagnosed in Aug 2022 He had issues with rectal bleeding and rectal pain Underwent colonoscopy (this was only flex sig per the patient) that showed large rectal mass. After that he saw, oncology in [place]. Plan was to start chemo and radiation before surgery He had radiation for 21 days then started chemo He is getting currently 4th cycle of chemo Previous OV 09-05-2022 Thalia Troy MD Diagnosis Plan 1. Adenocarcinoma of rectum (CMS/HCC) Ambulatory referral to Oncology Ambulatory referral to Oncology 08-22-2022 Dr Richmond Nugent Mervat Grayson is a 71 yo male with PMH [...] and internal hemorrhoids. He was evaluated at [facility] on 08/20/22 via flexible sigmoidoscopy demonstrating [...] (L) 0.83 (L) 0.71 (L) 0.79 (L) Dupage% % 8.7 9.5 9.2 11.1 10.6 9.7 8.9 Abs Dupage <0.87 k/uL 0.53 0.55 0.78 0.64 0.74 [...] and internal hemorrhoids. He was evaluated at [facility] on08/20/22 via flexible sigmoidoscopy demonstrating a friable, firm lesion encompassing ilzectgtkifoy24-30% of the circumference of the anus right at the anal verge extending 3-4 cm into the anal canal with central ulceration Follows in [place] with Dr. Anderson who referred the patient here for more evaluation of rectal bleeding We discussed the rectal cancer as the cause of rectal bleeding Completed 21 days of radiation He is currently on chemotherapy 4th cycle of FOLFOX Tolerates this well Was seen by surgery at [place] but prefers to keep his care at [...] with HCC without known underlying liver cirrhosis Micha Mccabe MD Follow Up: No follow-ups on file. documented in this encounterRiverside Methodist Hospital04-06-2023 Miscellaneous Notes* Telephone Encounter - Denisha [...] he see Dr. Kebede who is at [facility], and hopefully easier to get into [...] If so, pt would like referred to [facility] and asks who you recommend [...] PE. Denisha Duarte RN documented in this encounterRiverside Methodist Hospital04-04-2023 Miscellaneous Notes* Telephone Encounter - Denisha Duarte RN - 01/22/2023 1:35 PM EDT Voicemail message received from [facility] Central Scheduling. States that they are still waiting for ouroffice to fax the pt's US order. Asks that we send it to [phone]. Order faxed to the above number as requested. Denisha Duarte RN documented in this encounterRiverside Methodist Hospital04-04-2023 History of Present illness Narrative* Hoa [...] Time: 15 minutes Signed by: Hoa Owen, , RDN, LD documented in this encounterRiverside Methodist Hospital04-04-2023 History of Present illness Narrative* Ashley Godinez RN - 01/22/2023 9:29 AM EDT Patient to get an US of LLE edema per Andree. Would like it a [facility]. desktop publishing specialist notified of another appointment that patient has today at [address]. Ashley Godinez RN documented in this encounterRiverside Methodist Hospital04-04-2023 History of Present illness Narrative* Andree Hollis APRN.CHAINSTITCH ZIPPER SETTER - 01/22/2023 8:49 AM EDT PATIENT NAME: Mervat Grayson DATE: 01/22/2023 PRIMARY CARE PHYSICIAN: Dr. Lorenzo Marin OTHER PHYSICIANS: Dr. Mervat Slaughter, Dr. Thalia Troy, Dr. Kiko Treadwell, Dr. Key Portions of this encounter note have been copied from my note from 01/08/2023 and has been updated where appropriate, and reflect my current medical decision making from today. CC: This is a 72 year old male with rectal cancer, seen for scheduled follow-up. INTERIM HISTORY: Mervat Grayson returns for follow-up and cycle 3 FOLFOX. [...] or petechiae. PATHOLOGY: 08/20/2022 Colonoscopic biopsy ([facility]) Adenocarcinoma of colon (mass at anal verge) [...] to the thorax. 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 Few nonenlarged 2 to 3 mm mesorectal lymph nodes. No suspicious lymphadenopathy. 09/11/2022 CT chest, abdomen, pelvis ([facility]) Possible low-attenuation lesion right hepatic lobe under [...] to colorectal surgery (Dr. Thalia Troy in [place]) for restaging to include pelvic MRI and [...] Andree Hollis APRN.ARACELY CC: Dr. Thalia Troy ([facility] Colorectal Surgery) I spent a total of 30 minutes on the date of the service which included preparing to see the patient, ezvh-oj-[id number] patient care, completing clinical documentation, obtaining and/or reviewing separately obtained history, performing a medically appropriate examination, counseling and educating the pat ient/family/caregiver, ordering medications, tests, or procedures, independently interpreting results (not separately reported), and communicating results to the patient/family/caregiver. documented in this encounterRiverside Methodist Hospital03-31-2023 Miscellaneous Notes* Telephone Encounter - Renata Amin - 01/18/2023 4:14 PM EDT Patient has an OTV appointment on 01/22. Please place lab orders. Renata Amin documented in this encounterRiverside Methodist Hospital03-27-2023 Miscellaneous Notes* Telephone Encounter - Denisha Duarte RN - 01/14/2023 12:17 PM EDT Pt notified and verbalizes understanding. 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 However, a flex sigmoidoscopy would be recommended to make sure nothing else serious going on. Best if he could see his [place] colorectal surgeon. If not able to get in to see her the local development technologist can perform a flex sig. Thanks, B [...] advise? Denisha Duarte RN documented in this encounterRiverside Methodist Hospital03-21-2023 History of Present illness Narrative* Hoa [...] no significant changes but weight fluctuations noted [place] Body Weight: 79.9kg Estimated kilocalorie needs: kilocalories determined by 25-30 kcal/kg Estimated protein needs: 80-96 grams determined by 1.0-1.2 g/kg [place] weight Estimated fluid needs: ~3922-3980 milliliters based on 1 mL per kcal [...] Owen MS, RDN, LD documented in this encounterRiverside Methodist Hospital03-21-2023 Nurse Note* Lisseth Chávez - 01/08/2023 8:23 AM EDT Pt states that he had a lot of nausea after his last treatment and felt sick for 2 days after despite using his antiemetics. Lisseth Chávez' documented in this encounterRiverside Methodist Hospital03-21-2023 History of Present illness Narrative* Minerva Anderson MD - 01/08/2023 6:49 AM EDT PATIENT NAME: Mervat Grayson DATE: 01/08/2023 PRIMARY CARE PHYSICIAN: Dr. Lorenzo Marin OTHER PHYSICIANS: Dr. Mervat Slaughter, Dr. Thalia Troy, Dr. Kiko Treadwell, Dr. Key Portions of this encounter note have been [...] or petechiae. PATHOLOGY: 08/20/2022 Colonoscopic biopsy ([facility]) Adenocarcinoma of colon (mass at anal verge) [...] to the thorax. 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 Few nonenlarged 2 to 3 mm mesorectal lymph nodes. No suspicious lymphadenopathy. 09/11/2022 CT chest, abdomen, pelvis ([facility]) Possible low-attenuation lesion right hepatic lobe under [...] to colorectal surgery (Dr. Thalia Troy in [place]) for restaging to include pelvic MRI and [...] Minerva Anderson MD CC: Dr. Thalia Troy ([facility] Colorectal Surgery) documented in this encounterRiverside Methodist Hospital03-10-2023 Miscellaneous Notes* Telephone Encounter - Lucy [...] protocol. Lucy Goetz RN documented in this encounterRiverside Methodist Hospital03-02-2023 History of Present illness Narrative* Denisha Duarte RN - 12/20/2022 2:55 PM EST Library Consultant Pre Chemo Patient identified by name and date of . YES Confirmed date and time for chemotherapy ? YES Other appointments (labs, imaging) discussed? YES Discussed where to park (scientific software developer), charge for parking NO Discussed where to [...] treatment. YES Other topics discussed, interventions needed: NA Denisha Duarte RN * Denisha Duarte RN - [...] Ivana. Denisha Duarte RN documented in this encounterRiverside Methodist Hospital03-01-2023 Miscellaneous Notes* Telephone Encounter - Rashmi Lerner - 12/19/2022 1:28 PM EST Patient has been scheduled. Rashmi Lerner * Telephone Encounter - Rashmi Lerner - 12/17/2022 4:02 PM EST Call placed to [facility] for port placement. Left message on voicemail. Rashmi Lerner documented in this encounterRiverside Methodist Hospital03-01-2023 Miscellaneous Notes* Telephone Encounter - Milton Arndt RN - 12/19/2022 10:16 AM EST You are scheduled for a Mediport placement, On 12/20/2022. You are to arrive at 0900 am and Report to [facility]: [facility]: Enter through [facility] entrance. Proceed [...] if they are not done at a [facility] facility. . Railroad Auditor/Transportation: How will you be arriving for your procedure? Private car. You will need a responsible adult to accompany you to and from the procedure. Your dairy truck driver is required to stay with you until you are taken into the procedure room. Call for any questions [phone] documented in this encounterRiverside Methodist Hospital02-28-2023 Miscellaneous Notes* Telephone Encounter - Orin Kolb - 12/18/2022 8:36 AM EST Patient coming in on Saturday12/25/22 for follow up treatment. Please add lab orders. Thanks. Orin Kolb MA documented in this encounterRiverside Methodist Hospital02-27-2023 History of Present illness Narrative* Minerva Anderson MD - 12/17/2022 8:37 AM EST PATIENT NAME: Mervat Grayson DATE: 12/17/2022 PRIMARY CARE PHYSICIAN: Dr. Lorenzo Marin OTHER PHYSICIANS: Dr. Mervat Slaughter, Dr. Thalia Troy, Dr. Kiko Treadwell, Dr. Key Portions of this encounter note have been [...] or petechiae. PATHOLOGY: 08/20/2022 Colonoscopic biopsy ([facility]) Adenocarcinoma of colon (mass at anal verge) [...] to the thorax. 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 Few nonenlarged 2 to 3 mm mesorectal lymph nodes. No suspicious lymphadenopathy. 09/11/2022 CT chest, abdomen, pelvis ([facility]) Possible low-attenuation lesion right hepatic lobe under [...] to colorectal surgery (Dr. Thalia Troy in [place]) for restaging to include pelvic MRI and [...] Minerva Anderson MD CC: Dr. Thalia Troy ([facility] Colorectal Surgery) documented in this encounterRivers[facility] History of Present illness Narrative* Minal Corey RN - 12/10/2022 12:15 PM EST Radiology Service Progress Note DATE OF SERVICE: December 10, 2022 TIME: 12:28 PM PATIENT WEIGHT: 245 LBS PATIENT IDENTITY VERIFICATION COMPLETED USING TWO (2) STANDARD IDENTIFIERS: Name and Date of confirmed by patient verbally. FALL SCREENING: Has the patient had 2 falls in the last year or 1 fall with injury or currently using an Ambulatory Assistive Device (Walker, Cane, Wheelchair, Crutches, etc.)? No PATIENT GENDER DATA: Male ALLERGIES: Reviewed and unchanged CONTRAST ALLERGY: No EXAM: CT -CONTRAST INDUCED NEPHROPATHY RISK FACTORS: Patient age > 60 years CREATININE: Creatinine Date Value Ref Range Status 11/19/2022 1.51 (H) 0.73 - 1.22 mg/dL Final 10/29/2022 1.23 (H) 0.73 - 1.22 mg/dL Final 10/11/2022 1.50 (H) 0.73 - 1.22 mg/dL Final Estimated Glomerular Filtration Rate Date Value Ref Range Status 11/19/2022 49 (L) >=60 mL/min/1.73m Final Comment: Estimated Glomerular Filtration Rate (eGFR) is calculated using the 2020 CKD-EPI creatinine equation. This equation utilizes serum creatinine, sex, and age as parameters. The creatinine assay has traceable calibration to isotope dilution- mass spectrometry. Refer to KDIGO guidelines for clinical interpretation. In patients with unstable renal function, e.g. those with acute kidney injury, the eGFRmay not accurately reflect actual GFR. eGFR- Date Value Ref Range Status 08/04/2018 >60 Final P.O.C.T. RESULTS: POC done: Yes, See Lab Tab November 19, 2022 TREATMENT: No Hydration needed. IV SITE: Ambulatory: A peripheral IV was started in the Right antecubital site with a Angio cath: 20 gauge. IV SITE APPEARANCE: Clean,Dry and Intact SIGNATURE: Minal Corey RN PATIENT NAME: Mervat Grayson DATE: December 10, 2022 TIME: 12:28 PM * Denisha Allen RT(R) - 12/10/2022 12:15 PM EST Radiology Service Progress Note PATIENT NAME: Mervat Grayson DATE OF SERVICE: December 10, 2022 TIME: 12:58 PM PATIENT IDENTITY VERIFICATION COMPLETED USING TWO (2) IDENTIFIERS: Name and Date of confirmedby patient verbally. FALL SCREENING: Has the patient had 2 falls in the last year or 1 fall with injury or currently using an Ambulatory Assistive Device (Walker, Cane, Wheelchair, Crutches, etc.)? No PATIENT GENDER DATA: Male PATIENT RELEVANT IMPLANT DATA REVIEWED: Not Applicable RADIOLOGY DEPARTMENT: CT; Exam(s) Completed: Chest Abdomen Pelvis With IV and Oral contrast PERIPHERAL IV DATA: Site assessment: Clean,Dry and Intact, Site disposition Discontinued SIGNED BY: RT Johny(R) December 10, 2022 12:58 PM documented in this encounterRiverside [facility] Hospital01-31-2023 Miscellaneous Notes* Telephone Encounter - Katerina [...] possible to flush the kidneys . Thanks, BRHesham documented in this encounterRiverside [facility] Hospital01-30-2023 History of Present illness Narrative* G Saeed Key MD - 11/19/2022 2:38 PM EST Radiation Oncology - On Treatment Review (OTR) Note PATIENT NAME: Mervat Grayson PATIENT DIAGNOSIS: Adenocarcinoma of the lower rectum MRI staged [id number] COURSE: definitive and concurrent chemotherapy Current dose: [...] see patient back in 3 weeks. Dania Key MD documented in this encounterRiverside Methodist Hospital01-30-2023 History of Present illness Narrative* Minerva Anderson MD - 11/19/2022 8:07 AM EST PATIENT NAME: Mervat Grayson DATE: 11/19/2022 PRIMARY CARE PHYSICIAN: Dr. Lorenzo Marin OTHER PHYSICIANS: Dr. Mervat Slaughter, Dr. Thalia Troy, Dr. Kiko Treadwell, Dr. Key Portions of this encounter note have been [...] or petechiae. PATHOLOGY: 08/20/2022 Colonoscopic biopsy [place] Adenocarcinoma of colon (mass at anal verge) Mismatch repair gene -normal expression RADIOLOGY/OTHER STUDIES: 10/01/2022 MRI abdomen [place] No MRI evidence of liver lesion 09/25/2022 [...] No neoplastic hypermetabolic lesions 09/11/2022 MRI pelvis ([facility]) Low rectal neoplasm with suspected early invasion of the internal anal sphincter at the upper canal(MRI category T3b, N0). Few nonenlarged 2 to 3 mm mesorectal lymph nodes. No suspicious lymphadenopathy. 09/11/2022 CT chest, abdomen, pelvis ([facility]) Possible low-attenuation lesion right hepatic lobe under [...] to colorectal surgery (Dr. Thalia Troy in [place]) to discuss surgical options. 2. Rheumatoid arthritis [...] Minerva Anderson MD CC: Dr. Thalia Troy ([facility] Colorectal Surgery) documented in this encounterRiverside [facility] Hospital01-30-2023 History of Present illness Narrative* G Saeed Key MD - 11/19/2022 12:00 AM EST [facility] Radiation Oncology Department RADIATION ONCOLOGY - COMPLETION NOTE PATIENT: MERVAT GRAYSON: 1950 DATES OF TREATMENT: 10/08/2022- 11/19/2022 DIAGNOSIS: Adenocarcinoma of the lower rectum MRI staged [id number] AREA TREATED: rectum DELIVERED DOSE: Area: pelvis [...] followup with medical oncology. Staff Physician Saeed Key M.D. / KG 38:07 AM Electronically Signed cc: Dr. Lorenzo Anderson documented in this encounterRiverside Methodist Hospital01-26-2023 History of Present illness Narrative* Dania Key MD - 11/15/2022 8:34 AM EST Boost films reviewed. documented in this encounterRiverside Methodist Hospital01-23-2023 History of Present illness Narrative* Dania Key MD - 11/12/2022 2:01 PM EST Radiation Oncology - On Treatment Review (OTR) Note PATIENT NAME: Mervat Grayson PATIENT DIAGNOSIS: Adenocarcinoma of the lower rectum MRI staged [id number] COURSE: definitive and concurrent chemotherapy Current dose: [...] imaging reviewed. Continue radiation as outlined. Dania Key MD documented in this [facility]01-19-2023 Nurse Note* Re Alvarez LPN - 11/08/2022 2:26 PM EST Mervat Grayson presents in office today for: Lab Draw only . Ordering Provider: Saeed Key M.D. Test (s) ordered: CBC Method for obtaining blood: Phlebotomy was performed, accessing right antecubital vein. Needle removed intact. Dressing secured. Patient denies discomfort, dizziness, light-headedness or weakness and left the department without assist. Re Alvarez LPN documented in this encounterRiverside Methodist Hospital01-18-2023 Miscellaneous Notes* Telephone Encounter - Re Alvarez LPN - 11/07/2022 2:13 PM EST Standing weekly cbc order pending your approval. Please indicate how often you want CBC drawn. Re Alvarez LPN documented in this [facility]01-18-2023 Miscellaneous Notes* Telephone Encounter - Andree Hollis APRN.CHAINSTITCH ZIPPER SETTER - 11/07/2022 1:49 PM EST The following approved medication requests have been transmitted electronically. Requested Prescriptions Signed Prescriptions Disp Refills oxyCODONE-acetaminophen (PERCOCET) 5-325 mg tablet 100 tablet 0 Sig: Take 1 tablet by mouth every 6 hours as needed for pain. Authorizing Provider: ANDREE HOLLIS APRN.CHAINSTITCH ZIPPER SETTER * Telephone Encounter - Re Alvarez LPN - 11/07/2022 1:44 PM EST Michael is here for radiation therapy with c/o increasing rectal pain. He is currently taking hydrocodone-apap 5/325mg 1 tablet three times daily with little relief. He states he and Andree discussed possibly changing pain medication if needed. He would like any prescriptions sent to [facility] pharmacy. Re Alvarez LPN documented in this encounterRiverside [facility] Hospital01-16-2023 History of Present illness Narrative* G Saeed Key MD - 11/05/2022 10:04 AM EST Radiation Oncology - On Treatment Review (OTR) Note PATIENT NAME: Mervat Grayson PATIENT DIAGNOSIS: Adenocarcinoma of the lower rectum MRI staged [id number] COURSE: definitive and concurrent chemotherapy Current dose: [...] imaging reviewed. Continue radiation as outlined. Dania Key MD documented in this encounterRiverside Methodist Hospital01-09-2023 History of Present illness Narrative* Andree Hollis APRN.CHAINSTITCH ZIPPER SETTER - 10/29/2022 3:32 PM EST PATIENT NAME: Mervat Grayson DATE: 10/11/2022 PRIMARY CARE PHYSICIAN: Dr. Lorenzo Marin OTHER PHYSICIANS: Dr. Mervat Slaughter, Dr. Thalia Troy, Dr. Kiko Treadwell, Dr. Key CC: This is a 72 year old male with recently diagnosed rectal cancer, here for follow up. INTERIM HISTORY: Mervat Grayson returns for follow up. He started Xeloda [...] or petechiae. PATHOLOGY: 08/20/2022 Colonoscopic [place] Adenocarcinoma of colon (mass at anal verge) Mismatch repair gene -normal expression RADIOLOGY/OTHER STUDIES: 10/01/2022 MRI abdomen [place] No MRI evidence of liver lesion 09/25/2022 [...] No neoplastic hypermetabolic lesions 09/11/2022 MRI pelvis ([facility] Low rectal neoplasm with suspected early invasion of the internal anal sphincter at the upper canal(MRI category T3b, N0). Few nonenlarged 2 to 3 mm mesorectal lymph nodes. No suspicious lymphadenopathy. 09/11/2022 CT chest, abdomen, pelvis ([facility]) Possible low-attenuation lesion right hepatic lobe under [...] evidence of ongoing thromboembolic disease. Andree Hollis APRN.ARACELY CC: Dr. Thalia Troy ([facility] Colorectal Surgery) I spent a total of 30 minutes on the date of the service which included preparing to see the patient, [id number] patient care, completing clinical documentation, obtaining and/or reviewing separately obtained history, performing a medically appropriate examination, counseling and educating the pat ient/family/caregiver, ordering medications, tests, or procedures, independently interpreting results (not separately reported), and communicating results to the patient/family/caregiver. documented in this encounterRiverside [facility] Hospital01-09-2023 History of Present illness Narrative* Dennis Cheung MD - 10/29/2022 2:00 PM EST Radiation Oncology - On Treatment Review (OTR) Note PATIENT NAME: Mervat Grayson PATIENT DIAGNOSIS: Adenocarcinoma of the lower rectum MRI staged [id number] COURSE: definitive and concurrent chemotherapy Current dose: [...] planned. Dennis Cheung MD documented in this encounterRiverside [facility] Hospital01-04-2023 Hospital Discharge instructions Patient Education 10/24/2022 [...] Follow these instructions at home: Medicines Take qprs-mse-[id number] and prescription medicines only as told by [...] 10/04/2001 Document Revised: 09/19/2018 Document Reviewed: 10/23/2017 [employer] Patient Education 2020 [facility]. Follow Up Care 09/28/2021 14:33:01 With:VIVI ESCOBAR, ASHLEY Perez, URL Address: [address] [place] [address] When:3 months [facility] 01-03-2023 History of Present illness Narrative* Jaclyn Brewer RPh - 10/23/2022 2:31 PM EST Opened in error. documented in this encounterRiverside [facility] Hospital01-03-2023 History of Present illness Narrative* Dania Key MD - 10/23/2022 8:03 AM EST Radiation Oncology - On Treatment Review (OTR) Note PATIENT NAME: Mervat Grayson PATIENT DIAGNOSIS: Adenocarcinoma of the lower rectum MRI staged [id number] COURSE: definitive and concurrent chemotherapy Current dose: [...] imaging reviewed. Continue radiation as outlined. Dania Key MD documented in this encounterRiverside [facility] Hospital12-30-2022 History of Present illness Narrative* Hoa Owen, JONAS - 10/19/2022 12:54 PM EST Oncology Nutrition [...] for Follow up: prn Referred/Supervised by: Yesi/Yesi BATISTA Billing Type: Re-assess/15 min 1 unit Billed Time: 15 minutes Signed by: Hoa Owen MS, RDAnt, LD documented in this encounterRiverside Methodist Hospital12-27-2022 History of Present illness Narrative* G Saeed Key MD - 10/16/2022 1:16 PM EST Radiation Oncology - On Treatment Review (OTR) Note PATIENT NAME: Mervat Grayson PATIENT DIAGNOSIS: Adenocarcinoma of the lower rectum MRI staged [id number] COURSE: definitive and concurrent chemotherapy Current dose: [...] imaging reviewed. Continue radiation as outlined. Dania Key MD documented in this encounterRiverside Methodist Hospital12-22-2022 History of Present illness Narrative* Andree Hollis APRN.CHAINSTITCH ZIPPER SETTER - 10/11/2022 2:55 PM EST PATIENT NAME: Mervat Grayson DATE: 10/11/2022 PRIMARY CARE PHYSICIAN: Dr. Lorenzo Marin OTHER PHYSICIANS: Dr. Mervat Slaughter, Dr. Thalia Troy, Dr. Kiko Treadwell, Dr. Key CC: This is a 72 year old male with recently diagnosed rectal cancer, here for follow up. INTERIM HISTORY: Mervat Grayson returns for follow up. He started Xeloda [...] or petechiae. PATHOLOGY: 08/20/2022 [place]oscopic [place] Adenocarcinoma of colon (mass at anal verge) Mismatch repair gene -normal expression RADIOLOGY/OTHER STUDIES: 10/01/2022 MRI abdomen [place] No MRI evidence of liver lesion 09/25/2022 [...] No neoplastic hypermetabolic lesions 09/11/2022 MRI pelvis ([facility] Low rectal neoplasm with suspected early invasion of the internal anal sphincter at the upper canal(MRI category T3b, N0). Few nonenlarged 2 to 3 mm mesorectal lymph nodes. No suspicious lymphadenopathy. 09/11/2022 CT chest, abdomen, pelvis ([facility] Possible low-attenuation lesion right hepatic lobe under [...] Andree Hollis APRN.CNP CC: Dr. Thalia Troy ([facility] Colorectal Surgery) I spent a total of 30 minutes on the date of the service which included preparing to see the patient, goce-[id number] patient care, completing clinical documentation, obtaining and/or reviewing separately obtained history, performing a medically appropriate examination, counseling and educating the pat ient/family/caregiver, ordering medications, tests, or procedures, independently interpreting results (not separately reported), and communicating results to the patient/family/caregiver. documented in this encounterRiverside [facility] Hospital12-22-2022 Miscellaneous Notes* Telephone Encounter - Denisha Duarte [...] comply. Denisha Duarte RN documented in this encounterRiverside Methodist Hospital12-20-2022 Miscellaneous Notes* Telephone Encounter - Yasmin Sargent - 10/09/2022 11:56 AM EST Spoke with the patient confirmed noon arrival time for 1 pm appointment at [facility] Yasmin Sargent documented in this encounterRiverside Methodist Hospital12-19-2022 History and physical note * Hang Sarabia MD - 10/08/2022 2:46 PM EST VIRTUAL VISIT PROGRESS NOTE This is a virtual visit using [employer] video visit. It required patient-provider interaction for themedical decision making as documented below. Mervat Grayson is a 72 year old male seen [...] which included preparing to see the patient, givg-vz-uisk patient care, completing clinical documentation, obtaining and/or reviewing separately obtained history, performing a medically appropriate examination, counseling and educating the pat ient/family/caregiver, ordering medications, tests, or procedures, communicating with other HCPs (not separately reported), independently interpreting results (not separately reported), communicatingresults to the patient/family/caregiver, and care coordination (not separately reported) Hang Sarabia MD October 08, 2022 3:54 PM documented in this encounterRiverside Methodist Hospital12-19-2022 History of Present illness Narrative* G Saeed Key MD - 10/08/2022 11:56 AM EST Radiation Oncology - On Treatment Review (OTR) Note PATIENT NAME: Mervat Grayson PATIENT DIAGNOSIS: Adenocarcinoma of the lower rectum MRI staged [id number] COURSE: definitive and concurrent chemotherapy Current dose: [...] treatment given. Continue radiation as prescribed. Dania Key MD documented in this encounterRiverside Methodist Hospital12-19-2022 Nurse Note* Orin Kolb - 10/08/2022 11:23 AM EST EKG performed as ordered. Electronically sent to [facility]. Placed paper copy in scan folder. Orin Kolb MA documented in this encounterRiverside Methodist Hospital12-16-2022 Miscellaneous Notes* Telephone Encounter - Nasrin Tamayo - 2022 11:13 AM EST Pt added for covid test and ekg Saturday (10/08) * Telephone Encounter - Denisha Duarte RN - 2022 9:54 AM EST Pt notified and verbalizes understanding. Informed pt that Dr Sarabia's office would be contacting him w/ appointments. [...] Thanks, Minerva ----- Message ----- From: Hang Sarabia MD Sent: 2022 9:13 AM EST To: Collette Cespedes, Minerva Anderson MD, # Subject: RE: Possible New Pt Sure thing! We have an open slot next Saturday we'll try to get him in for that. He'll need an EKG and pre-bronch COVID which I assume he could get done at [facility] for convenience. [facility] Dr. Oconnor will be doing the bronch next week, but I'll see himin the office, either in in person or virtually. Thanks, Happy Holidays. Luis Alfredo Sarabia ----- Message ----- From: Denisha Duarte RN Sent: 09/28/2022 3:08 PM EST To: Hang Sarabia MD, Minerva Anderson MD Subject: Possible New Pt Good Afternoon - This gentleman has newly diagnosed rectal cancer. He had some suspicious areas in his lung and liver however follow up PET per Dr Anderson was negative. The PET did show some questionable mediastinal lymphadenopathy. asked if you could look at these and advise on whether or not an EBUS would be possible. Thank you! Denisha Duarte RN documented in this encounterRiverside Methodist Hospital12-16-2022 History of Present illness Narrative* Collette Cespedes - 2022 10:50 AM EST Patient called reviewed: Please schedule patient for the following: Pre-Procedure visit required: Yes-10/08 Physician Performing Bronchoscopy: Dr. Oconnor Needs Labs: No Needs EKG: Yes-10/08- scheduled * Hang Sarabia MD - 2022 9:09 AM EST Bronchoscopy [...] mets Referred by: Justin Reviewed by: CHUCHO Sarabia MD 2022 9:09 AM documented in this encounterRiverside Methodist Hospital12-16-2022 Miscellaneous Notes* Telephone Encounter - Denisha Duarte RN - 2022 9:27 AM EST Pt calls to ask if his Xeloda is ready for cone picker. States that he has not heard from pharmacy. Informed pt that he can cone picker his script today. Pharmacy hours reviewed. Apologized for missed notification. Pt verbalizes understanding and will be in today. Denisha Duarte RN documented in this encounterRiverside Methodist Hospital12-13-2022 Miscellaneous Notes* Telephone Encounter - Denisha Duarte RN - 10/02/2022 4:28 PM EST Patient started/will start taking Capecitabine on 10/08/22. Denisha Duarte RN documented in this encounterRiverside Methodist Hospital12-13-2022 History of Present illness Narrative* Denisha [...] handout: Capecitabine, Specialty Pharmacy Information : [facility], and Specialty Pharmacy phone numbers: Yes DRUG-SPECIFIC [...] minutes Denisha Duarte RN documented in this encounterRiverside Methodist Hospital12-13-2022 History of Present illness Narrative* Minerva Anderson MD - 10/02/2022 8:13 AM EST PATIENT NAME: Mervat Grayson DATE: 09/17/2022 PRIMARY CARE PHYSICIAN: Lorenzo Marin, OTHER PHYSICIANS: Dr. Mervat Slaughter, Dr. Thalia Troy, Dr. Kiko Treadwell, Dr. Key CC: This is a 71 year old [...] and atrophy. PATHOLOGY: 08/20/2022 [place]oscopic [place] Adenocarcinoma of colon (mass at anal verge) Mismatch repair gene -normal expression RADIOLOGY/OTHER STUDIES: 10/01/2022 MRI abdomen [place] No MRI evidence of liver lesion 09/25/2022 [...] No neoplastic hypermetabolic lesions 09/11/2022 MRI pelvis ([facility] Low rectal neoplasm with suspected early invasion of the internal anal sphincter at the upper canal(MRI category T3b, N0). Few nonenlarged 2 to 3 mm mesorectal lymph nodes. No suspicious lymphadenopathy. 09/11/2022 CT chest, abdomen, pelvis ([facility] Possible low-attenuation lesion right hepatic lobe under [...] Minerva Anderson MD CC: Dr. Thalia Troy ([facility] Colorectal Surgery) documented in this encounterRiverside Methodist Hospital12-12-2022 Miscellaneous Notes* Telephone Encounter - Denisha Duarte RN - 10/01/2022 5:19 PM EST Pt will be starting chemo/xrt on 10/08. Scripts for antiemetics pended. Denisha Duarte RN documented in this encounterRiverside Methodist Hospital12-09-2022 Miscellaneous Notes* Telephone Encounter - Re Alvarez LPN - 09/28/2022 12:07 PM EST Michael called stating he has completed the Z-francisco Dr. Key prescribed on 09/24/22 for complaints of a cough. Michael said he continues with a cough and is now productive with green mucus. He denies fevers. He said for the last couple years around this time, Dr. Marin treated him for bronchitis and pneumonia and he's wondering if this it what he has currently. I notified him that Dr. Key is out ofthe office today and recommended he call Dr. Marin for his recommendation. Michael is in agreement with calling Dr. Marin. Re Alvarez LPN documented in this [facility]12-07-2022 Miscellaneous Notes* Telephone Encounter - DAI Carrington - 09/26/2022 1:56 PM EST SOCIAL WORK FOLLOW UP NOTE: [facility] Date of service:09/26/22 Mervat Grayson is being seen for a follow up [...] as appropriate. DARYA Carrington documented in this encounterRiverside Methodist Hospital12-07-2022 Miscellaneous Notes* Telephone Encounter - Re Alvarez LPN - 09/26/2022 9:11 AM EST I notified Michael of his rescheduled new start for 10/08/22 at 12:45. He states he has a MRI 10/01/22 and I reminded him of his follow up with Dr. Anderson 10/02/22. He denies questions at this time. Re Alvarez LPN documented in this encounterRiverside Methodist Hospital12-06-2022 Miscellaneous Notes* Telephone Encounter - Denisha Duarte RN - 09/25/2022 1:57 PM EST Update: Pt's XRT to start on 10/08. MRI scheduled @ [facility] [place]01. Pt to see Dr Anderson [...] week? Denisha Duarte RN documented in this encounterRiverside Methodist Hospital12-06-2022 History of Present illness Narrative* Hoa [...] no changes reported, weight stable per patient [place] Body Weight: 79.9kg Estimated kilocalorie needs: 8826-3077 kilocalories determined by 25-30 kcal/kg Estimated protein needs: 80-96 grams determined by 1.0-1.2 g/kg [place] weight Estimated fluid needs: ~6577-8985 milliliters based on 1 mL per kcal [...] Owen MS, RDN, LD documented in this encounterRiverside Methodist Hospital12-06-2022 History of Present illness Narrative* Denisha Allen, RT(R) - 09/25/2022 12:15 PM EST RADIOLOGY SERVICE PROGRESS NOTE SERVICE DATE: 09/25/2022 SERVICE TIME: 12:26 PM PATIENT IDENTITY VERIFICATION COMPLETED USING TWO (2) STANDARD IDENTIFIERS: Name and Date of confirmed by patient verbally POST EXAM PIV STATUS: Discontinued PROCEDURE TYPE: NM INJECT: PET/CT BODY SCAN. 14.4 mCi F18 FDG. No other medications given.. ADMINISTRATION TIME: 1214 PATIENT DISCHARGED TO: Ambulatory patient, left CT department area. A Diagnostic radioactive procedure has taken place, with no further precautions necessary other than routine body substance precautions. More information regarding radiation safety can be found usingthis link: [email or web address] SIGNATURE: RT Johny(R) PATIENT NAME: Mervat Grayson DATE: September 25, 2022 TIME: 12:26 PM PAGER/CONTACT #: documented in this encounterR[facility]12-[facility]22 Miscellaneous Notes* Telephone Encounter - Lucina Diggs - 09/24/2022 1:02 PM EST Michael is scheduled with Dr Anderson on 10-02-22 per Kadie Kolb. Pt notified * Telephone Encounter - Lucina Diggs - 09/21/2022 9:12 AM EST Info out to Kadie Kolb for an appt. * Telephone Encounter - Minerva Anderson MD - 09/20/2022 5:05 PM EST Yes, predominantly I would like to see him back after the PET. Thanks, [facility] * Telephone Encounter - Lucina Diggs - 09/20/2022 12:58 PM EST Sim is scheduled for 09-24-22 Pet scan is scheduled for 09-25-22 MRI at [facility] not until 10-11-22. Just want to confirm that you want to see the patient back the week of 10-01. Thank you for your help. documented in this encounterRivers[facility]12-05-2022 History of Present illness Narrative* Dania Key MD - 09/24/2022 12:00 AM EST MERVAT GRAYSON [id number] 09/24/2022 [facility] Department of Radiation Oncology Treatment Planning Note For reasons stated in the consult note, Mervat Grayson is a candidate for radiation therapy. Based on review and interpretation of the relevant diagnostic studies together with the exam findings, Mervat Grayson was simulated on 09/24/2022 at which time [...] blocking, isodose distribution, and/or ports and DVH. documented in this encounterRiverside [facility] Hospital12-01-2022 Nurse Note* Sonam Horowitz RN - 09/20/2022 8:53 AM EST Radiation Therapy - Patient Education Note PATIENT NAME: Mervat Grayson PATIENT September 20, 2022 [facility] [place]/LOCATION: [facility] READINESS TO LEARN Cognitive Ability: Alert and [...] by: Sonam Horowitz RN documented in this encounterRiverside [facility] Hospital12-01-2022 History of Present illness Narrative* G Saeed Key MD - 09/20/2022 7:46 AM EST Radiation Oncology - New Patient/Consult Note PATIENT NAME: Mervat Grayson PATIENT REQUESTING PROVIDER: .Dr. Anderson DIAGNOSIS: Rectal cancer ,adenocarcinoma of the lower rectum MRI staged [id number] HPI: 71 year old male who presents [...] 30% circumferential involvement. Patient was seen by [facility] colorectal surgery, Dr. Troy. He underwent CT [...] ,adenocarcinoma of the lower rectum MRI staged [id number] Patient is still undergoing staging. He has locally advanced low rectal cancer. Would recomment radiation concurrent with chemotherapy given location and his significant symptoms. Risks benefits and rational of treatment discussed with patient and his . He expressed understanding of the information presented. He will return for simulation and further discussion after staging. Will coordinate concurrent treatment with Dr. Anderson Signed by: Dania Key MD cc: Lorenzo Marin [address] [place] [address] Minerva Anderson ([facility]) [address] [place] [address] [place] [id number] documented in this encounterRiverside [facility] Hospital11-29-2022 Miscellaneous Notes* Telephone Encounter - Lucy Hampton Sec - 09/18/2022 12:[address] Cortes from [facility] called regarding patient please call at your convience thanks [phone] documented in this encounterRiverside [facility] Hospital11-28-2022 History of Present illness Narrative* Minerva Anderson MD - 09/17/2022 6:57 AM EST PATIENT NAME: Mervat Grayson DATE: 09/17/2022 PRIMARY CARE PHYSICIAN: Lorenzo Marin, DO OTHER PHYSICIANS: Dr. Mervat Slaughter, Dr. [...] confirmed adenocarcinoma. The patient was referred to [facility] colorectal surgery (Dr. Troy) for further management. 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 MEDICATIONS: Current Outpatient Medications Medication Sig ELIQUIS [...] and atrophy. PATHOLOGY: 08/20/2022 Colonoscopic biopsy [place] Adenocarcinoma of colon (mass at anal verge) Mismatch repair gene -normal expression RADIOLOGY/OTHER STUDIES: 09/11/2022 MRI pelvis ([facility]) Low rectal neoplasm with suspected early invasion of the internal anal sphincter at the upper canal(MRI category T3b, N0). Few nonenlarged 2 to 3 mm mesorectal lymph nodes. No suspicious lymphadenopathy. 09/11/2022 CT chest, abdomen, pelvis ([facility]) Possible low-attenuation lesion right hepatic lobe under [...] Anderson MD CC: Dr. Mervat Slaughter ([facility] Surgery); Dr. Thalia Troy ([facility] Colorectal Surgery) documented in this encounterRiverside [facility] Hospital11-18-2022 Miscellaneous Notes* Telephone Encounter - Toshia Buenrostro [...] and MRI Saturday09/11/22 at 11:[address] [facility]. PSS: Please call and schedule pt for follow up with Dr. Anderson. Please give it a couple days between CT and MRI so we have reports back from [place]. Thanks you! Lauren Murrell RN * Telephone [...] recently diagnosed with adenocarcinoma of rectum at [facility], by Dr Thalia Troy. Pt has an [...] you, Minal Corey RN documented in this encounterRiverside [facility] Hospital11-16-2022 NoteSubjective Patient ID: Mervat Grayson is a 71 y.o. male who presents [...] Referral Reason: Specialty Services Required Referral Location: [facility] Requested Specialty: Oncology Number of Visits Requested: 1 Will get CEA today and will have MRI and CT scans soon. Once staging is complete we will discuss plan. No results found for this or any previous visit (from the past 36 hour(s)). No follow-ups on file.[facility]11-02-2022 Note Attestation signed by Thalia Troy MD at 08/22/2022 2:44 PM As the teaching physician, I have personally performed or re-performed the history of present illness, physical exam and medical decision making activities of the encounter and verified the medical student's documentation. I made pertinent changes as necessary to ensure accurate documentation. Subjective Patient ID: Mervat Grayson is a 71 y.o. male who presents for Consult (rectal mass). Mervat Grayson is a 71 yo male with PMH [...] and internal hemorrhoids. He was evaluated at [facility] on 08/20/22 via flexible sigmoidoscopy demonstrating [...] the past 36 hour(s)). No follow-ups on file.[facility]10-31-2022 Evaluation + Plan noteExtracted from: Title:Post-anesthesia - General Author:Jose Sevilla DO Date:08/20/22 Plan Transfer/ Discharge: Condition stable. Extracted from: Title:Pre-anesthesia - Endoscopy Author:Jose Birmingham Jr., DO Date:08/20/22 Plan [place] [employer] Anesthesiologists (ASA) physical status classification: Class III. Anesthetic Preoperative Plan Anesthesia: General. . Anesthetic plan, risks, benefits, and alternatives discussed with the patient and/or family. Patient verbalized understanding. Future Appointments Appointment Date:09/27/2022 01:00:00 PM Scheduled Provider:ASHLEY TRINIDAD PA-C Location:[facility] Appointment Type:URO Office Visit Appointment Date:10/03/2022 01:15:00 PM Scheduled Provider:Dilan ARRINGTON, Santiago Medina [facility] Type:Cardiology Follow Up (FT) Future Scheduled Tests Laboratory* PSA Total 09/28/21 Radiology* XR Abdomen 1 View 09/20/22 [facility]10-25-2022 Hospital Discharge instructions Follow Up Care 08/14/2022 09:27:21 With:eMrvat SLAUGHTER Address: [address] [place] [address], [facility] [address] [address]- Business (1) When:3 to 5 days [facility]08-11-2022 Hospital Discharge instructions Patient Education 05/31/2022 [...] in- season produce. Look at the unit maya on the maya tag. Use it to compare different brands [...] frozen fruits, and frozen vegetables. Avoid buying yvxmb-zy-xff foods, such as pre-cut fruits and vegetables [...] 06/10/2015 Document Revised: 10/08/2018 Document Reviewed: 10/08/2018 [employer] Patient Education 2020 [facility]. 05/31/2022 13:03:45 BMI for Adults BMI for [...] height. This can be done either in Bulgarian (U.S.) or metric measurements. Note that charts are available to help you find your BMI quickly and easily without having to do these calculations yourself. To calculate your BMI in Bulgarian ([place].S.) measurements, your health care provider will: [...] medical problems. BMI can be measured using Bulgarian measurements or metric measurements. To interpret your [...] 06/18/2005 Document Revised: 09/19/2018 Document Reviewed: 08/20/2018 [employer] Patient Education 2020 [facility]. 05/31/2022 13:03:43 Dizziness Dizziness Dizziness is a [...] balance is fine. If you need to department clinician one place for a long time, move [...] Watch your dizziness for any changes. Take nygk-uua-oyuomvq and prescription medicines only as told by [...] 04/02/2002 Document Revised: 10/10/2018 Document Reviewed: 11/09/2017 [employer] Patient Education 2020 [facility]. 05/31/2022 13:03:39 Hypotension Hypotension As your heart [...] standing up suddenly after eating. Medicines Take vmyt-ykd-eduhvcs and prescription medicines only as told by [...] 10/07/2006 Document Revised: 04/02/2019 Document Reviewed: 04/02/2019 [employer] Patient Education 2020 [facility]. Follow Up Care 05/30/2022 10:32:48 With:VALERIE ROBERTS CNP Address: [address] [place] [address] [address] [place] [address] When:7 to 10 days only if needed [facility] [place] 11-26-2021 Hospital Discharge instructions Follow Up Care 09/15/2021 11:43:54 With:Dilan ARRINGTON, Santiago Ortiz. Address: When:6 months Comments:Call for sooner apt with new/worsening symptoms [facility]06-14-2021 NotePROCEDURE: XR FOOT LT MIN 3 [...] Electronically authenticated by: SHANTEL COPELAND Date: 2021-04-03 13:38[facility]01-25-2020 Evaluation + Plan note Future Appointments Appointment Date:11/09/2022 03:00:00 PM Scheduled Provider: Location:.CARDIO Appointment Type:CV Echo (FT) Appointment Date:11/14/2022 01:45:00 PM Scheduled Provider:Santiago Kong MD [facility] App[facility] Type:Cardiology Follow Up (FT) Future Scheduled Tests Radiology* XR Abdomen 1 View 09/20/22 * Echo Transthoracic Complete 11/09/22 [facility] evaluation + Plan note Future Appointments Appointment Date:04/03/2022 11:30:00 AM Scheduled Provider: Location:.Cardiology Clinic Appointment Type:Cardiology Follow Up (FT) Appointment Date:06/21/2022 09:00:00 AM Scheduled Provider:Edward Kaufman DO [facility] App[facility] Type:ONC Office Visit 15 (FT) Appointment Date:09/27/2022 01:00:00 PM Scheduled Provider:ASHLEY TRINIDAD PA-C Location:[facility] Appointment Type:URO Office Visit Future Scheduled Tests Laboratory* PSA Total 09/28/21 Radiology* XR Abdomen 1 View 09/20/22 [facility] Future Appointments Appointment Date:06/21/2022 09:00:00 AM Scheduled Provider:Edward Kaufman DO [facility] Appoint[facility] Type:ONC Office Visit 15 (FT) Appointment Date:09/27/2022 01:00:00 PM Scheduled Provider:ASHLEY TRINIDAD PA-C Location:[facility] Appointment Type:URO Office Visit Appointment Date:10/03/2022 01:15:00 PM Scheduled Provider:Santiago Kong MD [facility] Type:Cardiology Follow Up (FT) Future Scheduled Tests Laboratory* PSA Total 09/28/21 Radiology* XR Abdomen 1 View 09/20/22 [facility] Future Appointments Appointment Date:08/28/2022 12:00:00 PM Scheduled Provider:Libia Watson CNP Location[facility] Appointment Type:BADH Screening Appointment Date:09/27/2022 01:00:00 PM Scheduled Provider:ASHLEY TRINIDAD PA-C Location:[facility] Appointment Type:URO Office Visit Appointment Date:10/03/2022 01:15:00 PM Scheduled Provider:Santiago Kong MD [facility] Type:Cardiology Follow Up (FT) Future Scheduled Tests Laboratory* PSA Total 09/28/21 Radiology* XR Abdomen 1 View 09/20/22 [facility] Future Appointments Appointment Date:08/20/2022 07:30:00 AM Scheduled Provider: Location:[facility] Appointment Type:Surgery FT Appointment Date:09/27/2022 01:00:00 PM Scheduled Provider:ASHLEY TRINIDAD PA-C Location:[facility] Appointment Type:URO Office Visit Appointment Date:10/03/2022 01:15:00 PM Scheduled Provider:Santiago Kong MD [facility] Appointment Type:Cardiology Follow Up (FT) Future Scheduled Tests Laboratory* PSA Total 09/28/21 Radiology* XR Abdomen 1 View 09/20/22 [facility] [place] Evaluation + Plan note Future Appointments Appointment Date:10/17/2022 01:00:00 PM Scheduled Provider:ASHLEY TRINIDAD PA-C Location:[facility] Appointment Type:URO Office Visit Appointment Date:11/14/2022 01:45:00 PM Scheduled Provider:Santiago Kong MD [facility] Type:Cardiology Follow Up (FT) Future Scheduled Tests Radiology* XR Abdomen 1 View 09/20/22 * Echo Transthoracic Complete 10/03/22 [facility] Future Appointments Appointment Date:01/22/2023 03:30:00 PM Scheduled Provider:Santiago Kong MD [facility] Type:Cardiology Follow Up (FT) Future Scheduled Tests Radiology* XR Abdomen 1 View 09/20/22 [facility] Future Appointments Appointment Date:04/29/2023 08:45:00 AM Scheduled Provider:Joanne SANCHEZ CNP [facility] Type:Cardiology Follow Up (FT) Future Scheduled Tests Radiology* XR Abdomen 1 View 09/20/22 [facility] Future Appointments Appointment Date:05/07/2023 01:30:00 PM Scheduled Provider:Bryon Cruz MD Location[facility] Appointment Type:Pain Management - New (FT) Future Scheduled Tests Radiology* XR Abdomen 1 View 09/20/22 [facility] Future Appointments Appointment [...] Tests Radiology* XR Abdomen 1 View 09/20/22 [facility] Future Appointments Appointment Date:11/01/2023 01:45:00 PM Scheduled Provider:Santiago Kong MD [facility] Type:Cardiology Follow Up (FT) Future Scheduled Tests Radiology* XR Abdomen 1 View 09/20/22 [facility] Future Appointments Appointment Date:02/14/2024 09:30:00 AM Scheduled Provider:Corey SINGLETON MD Location:[facility] Appointment Type:URO Office Visit Appointment Date:09/10/2024 08:00:00 AM Scheduled Provider:Santiago Kong MD Location:.Cardiology Clinic Appointment Type:Cardiology Follow Up (FT) Future Scheduled Tests Laboratory* B-Type Natriuretic Peptide 11/01/23 * Basic Metabolic Panel 11/01/23 [facility] Future Appointments Appointment Date:09/10/2024 08:00:00 AM Scheduled Provider:Santiago Kong MD Location:[facility] Clinic Appointment Type:Cardiology Follow Up (FT) Appointment Date:02/15/2025 08:45:00 AM Scheduled Provider:Corey SINGLETON MD Location:[facility] Appointment Type:URO Office Visit Future Scheduled Tests Laboratory* B-Type Natriuretic Peptide 11/01/23 * Basic Metabolic Panel 11/01/23 [facility] evaluation + Plan note Future Appointments Appointment Date:02/15/2025 08:45:00 AM Scheduled Provider:Corey SINGLETON MD Location:[facility] Appointment Type:URO Office Visit Appointment Date:03/10/2025 08:00:00 AM Scheduled Provider:Pato Peña PA-C Location:[facility]iology Clinic Appointment Type:Cardiology Follow Up (FT) Future Scheduled Tests Laboratory* B-Type Natriuretic Peptide 11/01/23 * Basic Metabolic Panel 11/01/23 Radiology* Echo Transthoracic Complete 01/10/25 [facility] evaluation + Plan note Future Appointments Appointment Date:05/23/2023 08:30:00 AM Scheduled Provider: [place] [place] Appointment Type:PT Eval (FT) Future Scheduled Tests Radiology* XR Abdomen 1 View 09/20/22 [facility] Future Appointments Appointment Date:02/15/2025 08:45:00 AM Scheduled Provider:Corey SINGLETON MD Location:[facility] Appointment Type:URO Office Visit Appointment Date:03/10/2025 08:00:00 AM Scheduled Provider:Pato Peña PA-C Location:FT.Cardiology Clinic Appointment Type:Cardiology Follow Up (FT) [facility] evaluation + Plan note Future Appointments Appointment Date:09/08/2025 08:00:00 AM Scheduled Provider:Pato Peña PA-C Location:.Cardiology Clinic Appointment Type:Cardiology Follow Up (FT) Future Scheduled Tests Laboratory* PSA Total 02/15/25 Radiology* XR Abdomen 1 View 02/15/25 [facility] Evaluation note* Diagnosis Rectal cancer (HCC)- Primary Malignant neoplasm of rectum Rheumatoid arthritis involving multiple sites, unspecified whether rheumatoid factor present (HCC) [facility] Diagnosis Rectal adenocarcinoma (HCC)- Primary Malignant neoplasm of rectum [facility]* Diagnosis Rectal adenocarcinoma (HCC)- Primary Malignant neoplasm of rectum [facility]* Diagnosis Rectal adenocarcinoma (HCC)- Primary Malignant neoplasm of rectum documented in this encounter [facility] noteNo assessment information availableUniversity Hospitals [facility] Work Phone: Evaluation note* Diagnosis Rectal cancer (HCC)- Primary Malignant neoplasm of rectum Abnormal PET scan of lung Nonspecific abnormal results of pulmonary system function study [facility]* Diagnosis Adenopathy- Primary Enlargement of lymph nodes Adenopathy Enlargement of lymph nodes [facility]* Diagnosis Adenopathy Enlargement of lymph nodes Adenopathy Enlargement of lymph nodes [facility] Diagnosis Rectal adenocarcinoma (HCC)- Primary Malignant neoplasm of rectum Adenopathy Enlargement of lymph nodes [facility]* Diagnosis Adenopathy- Primary Enlargement of lymph nodes Rectal adenocarcinoma (HCC) Malignant neoplasm of rectum Rheumatoid arthritis involving multiple sites, unspecified whether rheumatoid factor present (HCC) Adenopathy Enlargement of lymph nodes [facility]* Diagnosis Rectal cancer (HCC)- Primary Malignant neoplasm of rectum Pulmonary embolus with infarction (HCC) Other pulmonary embolism and infarction [facility]* Diagnosis Rectal adenocarcinoma (HCC)- Primary Malignant neoplasm of rectum [facility] Diagnosis Rectal adenocarcinoma (HCC)- Primary Malignant neoplasm of rectum [facility]* Diagnosis Rectal adenocarcinoma (HCC) Malignant neoplasm of rectum [facility]* Diagnosis Rectal cancer (HCC)- Primary Malignant neoplasm of rectum Abnormal PET scan of lung Nonspecific abnormal results of pulmonary system function study Pulmonary embolus with infarction (HCC) Other pulmonary embolism and infarction Rheumatoid arthritis involving multiple sites, unspecified whether rheumatoid factor present (HCC) [facility] Rectal [facility] (HCC)- Primary Malignant neoplasm of rectum [facility] Diagnosis Neoplasm related pain (acute) (chronic)- Primary [facility] Diagnosis Rectal cancer (HCC)- Primary Malignant neoplasm of rectum [facility] Diagnosis Rectal cancer (HCC) Malignant neoplasm of rectum [facility] Diagnosis Rectal cancer (HCC)- Primary Malignant neoplasm of rectum [facility] Diagnosis Rectal cancer (HCC)- Primary Malignant neoplasm of rectum [facility] Diagnosis Rectal cancer (HCC)- Primary Malignant neoplasm of rectum Rectal cancer (HCC)- Primary Malignant neoplasm of rectum [facility] Diagnosis Rectal cancer (HCC)- Primary Malignant neoplasm of rectum [facility] Diagnosis Rectal cancer (HCC)- Primary Malignant neoplasm of rectum Lung nodules Other nonspecific abnormal finding of lung field Cancer related pain Neoplasm related pain (acute) (chronic) [facility] Diagnosis Rectal cancer (HCC)- Primary Malignant neoplasm of rectum Lung nodules Other nonspecific abnormal finding of lung field Rectal cancer (HCC) Malignant neoplasm of rectum [facility] Diagnosis Rectal cancer (HCC)- Primary Malignant neoplasm of rectum Pre-procedure lab exam Pre-procedural laboratory examination Rectal cancer (HCC) Malignant neoplasm of rectum [facility] Rectal cancer (HCC)- Primary Malignant neoplasm of rectum [facility] Diagnosis Rectal cancer (HCC) Malignant neoplasm of rectum [facility] Diagnosis Rectal cancer (HCC)- Primary Malignant neoplasm of rectum [facility] Diagnosis Rectal cancer (HCC) Malignant neoplasm of rectum [facility] Diagnosis Rectal cancer (HCC)- Primary Malignant neoplasm of rectum [facility] Diagnosis Rectal cancer (HCC)- Primary Malignant neoplasm of rectum [facility] Diagnosis Rectal cancer (HCC)- Primary Malignant neoplasm of rectum [facility] Diagnosis Rectal cancer (HCC)- Primary Malignant neoplasm of rectum Rectal bleeding Hemorrhage of rectum and anus [facility] Diagnosis Rectal cancer (HCC)- Primary Malignant neoplasm of rectum Leg swelling Swelling of limb Left ankle swelling Effusion of ankle and foot joint [facility] Diagnosis Rectal cancer (HCC)- Primary Malignant neoplasm of rectum Rectal bleeding Hemorrhage of rectum and anus Acute deep vein thrombosis (DVT) of distal vein of left lower extremity (HCC) Family history of pancreatic cancer Family history of malignant neoplasm of gastrointestinal tract Family history of primary liver cancer Family history of malignant neoplasm of gastrointestinal tract documented in this [facility] Rectal cancer (HCC)- Primary Malignant neoplasm of rectum [facility] Diagnosis Rectal cancer (HCC)- Primary Malignant neoplasm of rectum Malignant neoplasm of rectum (HCC) Malignant neoplasm of rectum [facility] Diagnosis Rectal cancer (HCC)- Primary Malignant neoplasm of rectum Acute deep vein thrombosis (DVT) of distal vein of left lower extremity (HCC) [facility] Diagnosis Rectal cancer (HCC)- Primary Malignant neoplasm of rectum [facility] Diagnosis Rectal cancer (HCC) Malignant neoplasm of rectum [facility] Diagnosis Rectal cancer (HCC)- Primary Malignant neoplasm of rectum [facility] Diagnosis Rectal cancer (HCC)- Primary Malignant neoplasm of rectum [facility] Diagnosis Rectal cancer (HCC)- Primary Malignant neoplasm of rectum [facility] Diagnosis Rectal cancer (HCC) Malignant neoplasm of rectum Primary hypercoagulable state (HCC) Primary hypercoagulable state Rheumatoid arthritis involving multiple sites, unspecified whether rheumatoid factor present (HCC) [facility] Diagnosis Rectal cancer (HCC)- Primary Malignant neoplasm of rectum Malignant neoplasm of prostate (HCC) Malignant neoplasm of prostate [facility] Diagnosis Rectal cancer (HCC)- Primary Malignant neoplasm of rectum [facility] Diagnosis Rectal cancer (HCC)- Primary Malignant neoplasm of rectum Primary hypercoagulable state (HCC) Primary hypercoagulable state Rheumatoid arthritis involving multiple sites, unspecified whether rheumatoid factor present (HCC) [facility] Diagnosis Rectal cancer (HCC)- Primary Malignant neoplasm of rectum [facility] Diagnosis Rectal cancer (HCC) Malignant neoplasm of rectum [facility]* Diagnosis Encounter for follow-up surveillance of rectal cancer- Primary Unspecified follow-up examination Malignant neoplasm of rectum (HCC) Malignant neoplasm of rectum [facility]* Diagnosis Neoplasm related pain (acute) (chronic) [facility] Diagnosis Hypokalemia- Primary Hypopotassemia [facility]* Diagnosis Rectal cancer (HCC) Malignant neoplasm of rectum [facility] Diagnosis Rectal cancer (HCC)- Primary Malignant neoplasm of rectum Neoplasm related pain (acute) (chronic) Rheumatoid arthritis involving multiple sites, unspecified whether rheumatoid factor present (HCC) Acute deep vein thrombosis (DVT) of distal vein of left lower extremity (HCC) [facility] Diagnosis Rectal cancer (HCC)- Primary Malignant neoplasm of rectum [facility]* Diagnosis Rectal cancer (HCC) Malignant neoplasm of rectum [facility]* Diagnosis Malignant neoplasm of rectum (HCC)- Primary Malignant neoplasm of rectum [facility]* Diagnosis Encounter for follow-up surveillance of rectal cancer- Primary Unspecified follow-up examination [facility]* Diagnosis Encounter for follow-up surveillance of rectal cancer Unspecified follow-up examination [facility]* Diagnosis Rectal cancer (HCC)- Primary Malignant neoplasm of rectum [facility] Diagnosis Rectal cancer (HCC)- Primary Malignant neoplasm of rectum [facility]* Diagnosis Encounter for follow-up surveillance of rectal cancer- Primary Unspecified follow-up examination [facility]* Diagnosis Malignant neoplasm of rectum (HCC) Malignant neoplasm of rectum [facility]* Diagnosis Encounter for follow-up surveillance of rectal cancer Unspecified follow-up examination [facility] Diagnosis Encounter for follow-up surveillance of rectal cancer Unspecified follow-up examination Rectal cancer (HCC) Malignant neoplasm of rectum [facility] Diagnosis Rectal cancer (HCC)- Primary Malignant neoplasm of rectum Encounter for follow-up surveillance of rectal cancer Unspecified follow-up examination [facility] Diagnosis Malignant neoplasm of rectum (HCC)- Primary Malignant neoplasm of rectum Acute deep vein thrombosis (DVT) of distal vein of left lower extremity (HCC) [facility] Diagnosis Encounter for follow-up surveillance of rectal cancer- Primary Unspecified follow-up examination [facility] Diagnosis Encounter for follow-up surveillance of rectal cancer Unspecified follow-up examination [facility] Diagnosis Malignant neoplasm of rectum (HCC) Malignant neoplasm of rectum [facility] Diagnosis Malignant neoplasm of rectum (HCC) Malignant neoplasm of rectum [facility] Diagnosis Malignant neoplasm of rectum (HCC) Malignant neoplasm of rectum [facility] Diagnosis Lung nodules Other nonspecific abnormal finding of lung field Rectal cancer (HCC) Malignant neoplasm of rectum [facility] Diagnosis Rectal cancer (HCC) Malignant neoplasm of rectum [facility] Diagnosis Encounter for follow-up surveillance of rectal cancer- Primary Unspecified follow-up examination [facility] Diagnosis Rectal cancer (HCC) Malignant neoplasm of rectum Encounter for follow-up surveillance of rectal cancer Unspecified follow-up examination [facility] Diagnosis Diarrhea of presumed infectious origin- Primary Chills Chills (without fever) Infection in abdomen (HCC) Unspecified peritonitis Infection in abdomen (HCC) Unspecified peritonitis Chills Chills (without fever) [facility] Diagnosis Infection in abdomen (HCC) Unspecified peritonitis Chills Chills (without fever) [facility]* Diagnosis Abscess- Primary Cellulitis and abscess of unspecified site Abscess Cellulitis and abscess of unspecified site documented in this encounter [facility] note* Diagnosis Malignant neoplasm of rectum (HCC) Malignant neoplasm of rectum documented in this encounter [facility] note* Diagnosis Encounter for change or removal of drains- Primary Other specified aftercare following surgery documented in this encounter [facility] note* Diagnosis Abscess- Primary Cellulitis and abscess of unspecified site Abscess Cellulitis and abscess of unspecified site documented in this encounter [facility] note* Diagnosis Malignant neoplasm of rectum (HCC)- Primary Malignant neoplasm of rectum documented in this encounter [facility] note* Diagnosis Encounter for change or removal of drains- Primary Other specified aftercare following surgery documented in this encounter [facility] note* Diagnosis Sleep apnea, unspecified type documented in this encounter [facility] note* Diagnosis Right foot pain- Primary Pain in soft tissues of limb Right ankle tendonitis documented in this encounter [facility] note* Diagnosis Bacterial folliculitis- Primary Other specified disease of hair and hair follicles Seborrheic keratosis Inflamed seborrheic keratosis Acrochordon Unspecified hypertrophic and atrophic condition of skin Neoplasm of unspecified behavior of bone, soft tissue, and skin Pain Generalized pain documented in this encounter [facility] note* Diagnosis Malignant neoplasm of rectum (HCC) Malignant neoplasm of rectum documented in this encounter [facility] note* Diagnosis Intra-abdominal and pelvic swelling, mass and lump, unspecified site- Primary Malignant neoplasm of rectum (HCC) Malignant neoplasm of rectum Intra-abdominal and pelvic swelling, mass and lump, unspecified site Malignant neoplasm of rectum (HCC) Malignant neoplasm of rectum documented in this encounter [facility] note* Diagnosis Intra-abdominal and pelvic swelling, mass and lump, unspecified site Malignant neoplasm of rectum (HCC) Malignant neoplasm of rectum documented in this encounter [facility] note* Diagnosis Encounter for follow-up surveillance of rectal cancer Unspecified follow-up examination documented in this encounter [facility] note* Diagnosis Malignant neoplasm of rectum (HCC)- Primary Malignant neoplasm of rectum documented in this encounter [facility] note* Diagnosis Malignant neoplasm of rectum (HCC)- Primary Malignant neoplasm of rectum Right lower quadrant abdominal pain Abdominal pain, right lower quadrant documented in this encounter [facility] note* Diagnosis Malignant neoplasm of rectum (HCC)- Primary Malignant neoplasm of rectum documented in this encounter [facility] note* Diagnosis Right lower quadrant abdominal pain Abdominal pain, right lower quadrant documented in this encounter [facility] note* Diagnosis Malignant neoplasm of rectum (HCC) Malignant neoplasm of rectum Rectal cancer (HCC) Malignant neoplasm of rectum documented in this encounter [facility] note* Diagnosis RLQ abdominal pain- Primary Abdominal pain, right lower quadrant S/P right colectomy Other postprocedural status Intra-abdominal abscess (HCC) Peritoneal abscess 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, excluding rectum and anus documented in this encounter [facility] note* Diagnosis Malignant neoplasm of rectum (HCC) Malignant neoplasm of rectum documented in this encounter [facility] note* Diagnosis Malignant neoplasm of rectum (HCC)- Primary Malignant neoplasm of rectum Right lower quadrant abdominal abscess (HCC) Peritoneal abscess documented in this encounter [facility] note* Diagnosis Encounter for follow-up surveillance of rectal cancer- Primary Unspecified follow-up examination documented in this encounter [facility] note* Diagnosis Onset Date Resolution Status Admit Date Family history of colon cancer acute March 18, 2025 12:56pm Hemorrhoids acute March 18 12:56pm [facility] Work Phone: [facility]* Diagnosis BRBPR (bright red blood per rectum)- Primary Hemorrhage of rectum and anus documented in this encounter [facility] note* Diagnosis Malignant neoplasm of rectum (HCC)- Primary Malignant neoplasm of rectum Rheumatoid arthritis involving multiple sites, unspecified whether rheumatoid factor present (HCC) Primary hypercoagulable state (HCC) Primary hypercoagulable state documented in this encounter [facility] note* Diagnosis Right elbow pain- Primary Pain in joint, upper arm Effusion of right elbow Arthritis of right elbow documented in this encounter [facility] note* Diagnosis Malignant neoplasm of rectum (HCC)- Primary Malignant neoplasm of rectum documented in this encounter [facility] general Narrative - Reported* Type Description Date Medical History Rheumatoid arthritis Medical History osteoarthitis Medical History Vericose veins Medical History hypertension Medical History H/O dVT / PE 2017 Medical History colon cancer Medical History cataracts Medical History kidney stones Medical History pneumonia Surgical History c-spine Fusion x2 - dr marcum 2012 Surgical History B/L venous ablation 2007 Surgical History 7 lithotripsies - Dr. Singleton Surgical History (l) foot, 2nd toe dudley int replacement - dr. Stevens Surgical History B/l Cataracts Late 2018 Hospitalization History see surg Hx eCozy [facility] DICOM Grid Other Hospital course Narrative No data available for this section [facility] No data available for this [facility] No data available for this section [facility] Outpatient Procedure (Routine) - Authorized Specialty Diagnoses / Procedures Referred By Contac t Referred To Contact [facility] Diagnoses Adenopathy Procedures ECG COMPLETE ECG ROUTINE ECG W/LEAST 12 LDS W/[place] [address] [place], [place] [id number] [place] [address] Referral ID Status Reason Start Date Expiration Date Visits Requested Visits Authorized [id number] Authorized Auto-Generat ed Referral [address] [facility] for referral (narrative)* Diagnostic Procedure Only (Routine) - Pending Review Specialty Diagnoses / Procedures [facility] To Contact [facility] Diagnoses Leg swelling Procedures US DVT LOWER LEFT DUP-SCAN XTR VEINS UNILATERAL/LIMITED STUDY Andree Hollis, [employer] [address] [place] [address] [place] [address] [facility] Referral ID Status Reason Start Date Expiration Date Visits Requested Visits Authorized [id number] Pending Review Auto-Generat ed Referral 01/22/2023 02/21/[address] [facility] for referral (narrative)* Outpatient Procedure (Routine) - Pending Review Specialty Diagnoses / Procedures Referred By Contac t Referred To Contact [facility] Diagnoses Encounter for follow-up surveillance of rectal cancer Procedures SIGMOIDOSCOPY SIGMOIDOSCOPY FLX DX W/COLLJ SPEC BR/[place] [address] [facility] [address] [place] [address] [address] Referral ID Status Reason Start Date Expiration Date Visits Requested Visits Authorized [id number] Pending Review Auto-Generat ed Referral 07/24/2023 07/24/[address] [facility] for referral (narrative)* Outpatient Procedure (Routine) - Closed Specialty Diagnoses / Procedures Referred By Contac t Referred To Contact [facility] Diagnoses Encounter for follow-up surveillance of rectal cancer Procedures SIGMOIDOSCOPY SIGMOIDOSCOPY FLX DX W/COLLJ SPEC BR/[place] [address] [facility] [address] [address] Referral ID Status Reason Start Date Expiration Date V isits Requested Visits Authorized [id number] Closed Auto-Generate d Referral 05/03/2023 05/03/[address] [facility] for referral (narrative)* Outpatient Procedure (Routine) - Closed Specialty Diagnoses / Procedures Referred By Contac t Referred To Contact [facility] Diagnoses Rectal cancer (HCC) Procedures COLONOSCOPY DIAGNOSTIC COLONOSCOPY FLX DX W/[place] [address] [address] Referral ID Status Reason Start Date Expiration Date V isits Requested Visits Authorized [id number] Closed Auto-Generate d Referral 02/07/2023 02/08/[address] [facility] for referral (narrative)* Outpatient Procedure (Routine) - Closed Specialty Diagnoses / Procedures Referred By Contac t Referred To Contact [facility] Diagnoses Encounter for follow-up surveillance of rectal cancer Procedures SIGMOIDOSCOPY SIGMOIDOSCOPY FLX DX W/COLLJ SPEC BR/[place] [address] [address] [place] [address] [address] Referral ID Status Reason Start Date Expiration Date V isits Requested Visits Authorized [id number] Closed Auto-Generate d Referral 02/04/2024 11/05/[address] [facility] for referral (narrative)* Outpatient Procedure (Routine) - New Request Specialty Diagnoses / Procedures Referred By Contac t Referred To Contact [facility] [place] Diagnoses Encounter for follow-up surveillance of rectal cancer Procedures COLONOSCOPY SCREENING COLONOSCOPY FLX DX W/[place] [address] [address] [facility] [address] [place] [address] [place] [phone] Referral ID Status Reason Start Date Expiration Date Visits Requested Visits Authorized [id number] New Request Auto-Generat ed Referral 05/19/2024 05/19/2025 1 1 [facility] for referral (narrative)* Diagnostic Procedure Only (Routine) - Closed Specialty Diagnoses / Procedures Referred By Contac t Referred To Contact [facility] Diagnoses Rectal cancer (HCC) Procedures NM PET/CT SKULL-THIGH INITIAL PET IMAGING CT ATTENUATION SKULL BASE MID-THIGH Minerva Anderson MD [address] [place] [address] [place] [address] [facility] [address] [place] [address] Referral ID Status Reason Start Date Expiration Date V isits Requested Visits Authorized [id number] Closed Auto-Generate d Referral 09/17/2022 10/17/2023 1 1 [facility] for referral (narrative)* Outpatient Procedure (Routine) - New Request Specialty Diagnoses / Procedures Referred By Contac t Referred To Contact [facility] Diagnoses Encounter for follow-up surveillance of rectal cancer Procedures SIGMOIDOSCOPY SIGMOIDOSCOPY FLX DX W/COLLJ SPEC BR/[place] [address] [address] [facility] [address] [place] [address] [facility] [address] [place] [address] Referral ID Status Reason Start Date Expiration Date Visits Requested Visits Authorized [id number] New Request Auto-Generat ed Referral 07/21/2024 07/21/[address] [facility] for referral (narrative)* Outpatient Procedure (Routine) - Closed Specialty Diagnoses / Procedures Referred By Contac t Referred To Contact [facility] Diagnoses Encounter for follow-up surveillance of rectal cancer Procedures COLONOSCOPY SCREENING COLONOSCOPY FLX DX W/[place] [address] [address] [place] [id number] [facility] [address] [place] [address] Referral ID Status Reason Start Date Expiration Date V isits Requested Visits Authorized [id number] Closed Auto-Generate d Referral 05/19/2024 05/19/[address] [facility] for referral (narrative)* Outpatient Procedure (Routine) - Closed Specialty Diagnoses / Procedures Referred By Contac t Referred To Contact [facility] Diagnoses Encounter for follow-up surveillance of rectal cancer Procedures SIGMOIDOSCOPY SIGMOIDOSCOPY FLX DX W/COLLJ SPEC BR/[place] [address] [address] [facility] [address] [place] [address] [facility] [address] [place] [address] Referral ID Status Reason Start Date Expiration Date V isits Requested Visits Authorized [id number] Closed Auto-Generate d Referral 07/21/2024 07/21/[address] [facility] for visit Narrative* Outpatient Procedure (Routine) - Closed Specialty Diagnoses / Procedures Referred By Contac t Referred To Contact [facility] Diagnoses Adenopathy Procedures ECG COMPLETE ECG ROUTINE ECG W/LEAST 12 LDS W/I&R Hang Sarabia MD [address] [place] [address] [facility] [place] [address] Referral ID Status Reason Start Date Expiration Date V isits Requested Visits Authorized [id number] Closed Auto-Generate d Referral [address] [facility] for visit Narrative* Outpatient Procedure (Routine) - Closed Specialty Diagnoses / Procedures Referred By Rosanne t Referred To Contact [facility] Diagnoses Encounter for follow-up surveillance of rectal cancer Procedures SIGMOIDOSCOPY SIGMOIDOSCOPY FLX DX W/COLLJ SPEC BR/[place] [address] [address] [place] [address] [place] [phone] Referral ID Status Reason Start Date Expiration Date V isits Requested Visits Authorized [id number] Closed Auto-Generate d Referral 05/03/2023 05/03/[address] [facility] for visit Narrative* Outpatient Procedure (Routine) - Closed Specialty Diagnoses / Procedures Referred By Contac t Referred To Contact [facility] Diagnoses Rectal cancer (HCC) Procedures COLONOSCOPY DIAGNOSTIC COLONOSCOPY FLX DX W/[place] [address] [address] [place] [address] [place] [phone] Referral ID Status Reason Start Date Expiration Date V isits Requested Visits Authorized [id number] Closed Auto-Generate d Referral 02/07/2023 02/08/[address] [facility] for visit Narrative* Outpatient Procedure (Routine) - Closed Specialty Diagnoses / Procedures Referred By Contdoron t Referred To Contact [facility] Diagnoses Encounter for follow-up surveillance of rectal cancer Procedures SIGMOIDOSCOPY SIGMOIDOSCOPY FLX DX W/COLLJ SPEC BR/[place] [address] [address] [facility] [address] [place] [address] [address] Referral ID Status Reason Start Date Expiration Date V isits Requested Visits Authorized [id number] Closed Auto-Generate d Referral 02/04/2024 11/05/[address] [facility] for visit Narrative* Outpatient Procedure (Routine) - Closed Specialty Diagnoses / Procedures Referred By Contdoron t Referred To Contact [facility] Diagnoses Encounter for follow-up surveillance of rectal cancer Procedures COLONOSCOPY SCREENING COLONOSCOPY FLX DX W/[place] [address] [address] [facility] [address] [place] [address] [address] Referral ID Status Reason Start Date Expiration Date V isits Requested Visits Authorized [id number] Closed Auto-Generate d Referral 05/19/2024 05/19/[address] [facility] for visit Narrative* Outpatient Procedure (Routine) - Closed Specialty Diagnoses / Procedures Referred By Rosanne t Referred To Contact [facility] Diagnoses Encounter for follow-up surveillance of rectal cancer Procedures SIGMOIDOSCOPY SIGMOIDOSCOPY FLX DX W/COLLJ SPEC BR/[place] [address] [address] [facility] [address] [place] [address] [address] Referral ID Status Reason Start Date Expiration Date V isits Requested Visits Authorized [id number] Closed Auto-Generate d Referral 07/21/2024 07/21/[address] [facility] for visit Narrative* MRI/CT (Routine) - Closed Specialty Diagnoses / Procedures Referred By Rosanne t Referred To Contact [facility] Diagnoses Malignant neoplasm of rectum (HCC) Procedures MRI RECTUM WO/W IVCON MRI PELVIS W/O & W/CONTRAST MATERIAL Minerva Anderson MD [address] [place] [address] [place] [address] Phone: tel: fax: [place] [phone] Referral ID Status Reason Start Date Expiration Date V isits Requested Visits Authorized [id number] Closed Auto-Generate d Referral 12/07/2024 01/06/2026 1 1 [facility] Summary Purpose Family History No Family History Records Found Relationship Condition Age at Onset Recorded Date/T antoinette father Malignant neoplasm of kidney Unknown Unknown Malignant neoplasm Unknown mother Malignant neoplasm of pancreas Unknown sibling Malignant neoplasm Unknown Advance Directives No Advanced Directives Records Found Advance Directive Response Recorded Date/ Time Advance Directives No September 6:18pm Advance Directive Response Recorded Date/ Time Advance Directives No September 7:18pm Healthcare Agents on File Name Relationship Healthcare Agent Relationshi p Communication Mini [place] Spouse Primary Decision Maker Healthcare Agents on File Name Relationship Healthcare Agent Relationshi p Communication Mini [place] Spouse Primary Decision Maker Healthcare Agents on File Name Relationship Healthcare Agent Relationshi p Communication Mini [place] Spouse Primary Decision Maker Advance Directive Response Recorded Date/ Time Advance Directives Yes November 9:38am Reason for Referral Specialty Diagnoses / Procedures Referred By Contac t Referred To Contact Radiology Diagnoses Right lower quadrant abdominal pain Procedures US ABDOMEN COMPLETE Negar Pinedo MD [address] [place] [address] Referral ID Status Reason Start Date Expiration Date V isits Requested Visits Authorized [id number] Not Required - RTA 12/15/2024 12/15/2025 1 1 Specialty Diagnoses / Procedures Referred By Contac t Referred To Contact Sleep Center Diagnoses Sleep apnea, unspecified type Procedures Home Sleep Study Valerie Roberts, COMMUNICATIONS SCIENTIST - CHAINSTITCH ZIPPER SETTER [address] [place] [address] Sleep, MD Ami [address] [place] [address] Referral ID Status Reason Start Date Expiration Date Visits Re quested Visits Authorized [id number] Open 08/20/2024 08/20/2025 1 1 Specialty Diagnoses / Procedures Referred By Rosanne engle Referred To Contact CT IMAGING Diagnoses Infection in abdomen (HCC) Procedures CT ABD/PEL W IVCON CT ABD & PELVIS W/CONTRAST Celeste Andrews APRN.CHAINSTITCH ZIPPER SETTER [address] [place] [address] [place] [address] Referral ID Status Reason Start Date Expiration Date V isits Requested Visits Authorized [id number] Closed Auto-Generate d Referral 08/13/2024 09/12/2025 1 1 Reason *FU 07/01 EMG bila t upper and lower extremities Diagnosis 1 Cervical stenosis of spine (M48.02) Referral Organization [facility] Referring Provider First Name Valencia Referring Provider Last Name Darin Referring Provider Specialty Nurse Pract itioner Referred Organization [facility] Referred Provider Shantel Langston Referred Address [address] [place], [place],[address] Referred Provider Specialty Neurology Referral Priority Routine General Notes Rika Shabazz 023 03:33:00 PM >Spoke with Dr. Cruz's office and Dr. Cruz does not them them or do they do them in their office. [facility] Central scheduling schedules them which she transferred me to Central Scheduling and they said that Dr. Langston comes in like twice a month and does them through [facility] but he is scheduled out to July. She said it would be better to send to his office Vj Lopezjohnie 06/18/2023 03:46:05 PM > thank you for the letting me know, I was not aware that is the way they did it, can we update the referrals to go through [facility]? Rika Shabazz 06/19/2023 09:08:47 AM >OK, will [...] call patient to schedule. Referral was sent [facility] Clinical Notes Office [phone] Reason 05/07/23 @ 1:30pm evaluate and treat Diagnosis 1 Cervical radiculopat hy (M54.12) Referral Organization [facility] Referring Provider First Name Valencia Referring Provider Last Name Webster Referring Provider Specialty Nurse Pract itioner Referred Organization [facility] Referred Provider Bryon Cruz Referred Address [address],[place], [place],[address] Referred Provider Specialty Pain Medicin e Referral Priority Routine Referral Appointment Date 2023-05-07 General Notes [facility] 023 10:03:13 AM >Received today. [facility] Pain Medicine 's office request us to fill out form and fax referral to them and they will review the referral and call patient. Referral was fax. [facility] 04/19/2023 09:24:32 AM >Spoke with Jonah at [facility] 's office and patient has been scheduled for 05/07/23 @ 1:30pm [facility] 05/08/2023 11:42:50 AM >Spoke with Silvia at [facility] Pain [facility] office and patient was seen. She transferred me to [facility] Medical Records to get office notes [facility] 05/08/2023 11:46:09 AM >Spoke with Elba at [facility] Medical Records and she will fax the notes to us [facility] 05/08/2023 01:19:55 PM >Received consult notes Clinical Notes Office [phone] Reason 05/02/23 @ 2:00pm evaluate and treat - Left hip pain Diagnosis 1 Cervical radiculopat hy (M54.12) Referral Organization [facility] Referring Provider First Name Valencia Referring Provider Last Name Webster Referring Provider Specialty Nurse Pract itioner Referred Organization [facility] Referred Provider Jakob Mora Jr. Referred Address ,[place],[address] Referred Provider Specialty Orthopedic S urgery Referral Priority Routine Referral Appointment Date 2023-05-02 [facility] 07:35:08 AM >Received today and referral was fax. They will review and call patient to schedule [facility] 04/19/2023 09:50:53 AM >Fax letter for appt update Rika Shabazz 05/01/2023 09:53:54 AM >Spoke with [facility] Orthopedic office and patient has been scheduled for 05/02/23 @ 2 Rika Shabazz 05/03/2023 08:50:48 AM >Reviewed [facility] Epic and patient went to appt but I do not think the office notes are complete yet Rika Shabazz 05/06/2023 07:52:53 AM >Received consult notes from [facility] Epic Clinical Notes Office [phone] Specialty Diagnoses / Procedures Referred By Contac t Referred To Contact CT IMAGING Diagnoses Malignant neoplasm of rectum (HCC) Procedures CT ABDOMEN W IVCON [place] ABDOMEN [place] [address] [address] [place] [address] [address] Imaging Referral ID Status Reason Start Date Expiration Date Visits Requested Visits Authorized [id number] Pending Review Auto-Generat ed Referral 05/03/2023 06/01/2024 1 1 Specialty Diagnoses / Procedures Referred By Contac t Referred To Contact CT IMAGING Diagnoses Malignant neoplasm of rectum (HCC) Procedures CT CHEST W IVCON DIAGNOSTIC COMPUTED TOMOGRAPHY THORAX W/[place] [address] [address] [address] [address] Imaging Referral ID Status Reason Start Date Expiration Date Visits Requested Visits Authorized [id number] Pending Review Auto-Generat ed Referral 05/03/2023 06/01/2024 1 1 Specialty Diagnoses / Procedures Referred By Contac t Referred To Contact MR IMAGING Diagnoses Malignant neoplasm of rectum (HCC) Procedures MRI RECTUM WO/W IVCON MRI PELVIS W/O & W/[place] [address] [address] [address] Mr Imaging Referral ID Status Reason Start Date Expiration Date Visits Requested Visits Authorized [id number] Pending Review Auto-Generat ed Referral 05/03/2023 06/01/2024 1 1 Specialty Diagnoses / Procedures Referred By Contac t Referred To Contact [facility] Diagnoses Encounter for follow-up surveillance of rectal cancer Procedures SIGMOIDOSCOPY SIGMOIDOSCOPY FLX DX W/COLLJ SPEC BR/[place] [address] [address] [place] [address] [facility] [address] [place] [address] Referral ID Status Reason Start Date Expiration Date Visits Requested Visits Authorized [id number] Pending Review Auto-Generat ed Referral 05/03/2023 05/03/2024 1 1 Reason evaluate and treat Diagnosis 1 Cervical radiculopat hy (M54.12) Referral Organization [facility] Referring Provider First Name Valencia Referring Provider Last Name Webster Referring Provider Specialty Nurse Pract itioner Referred Organization [facility] Referred Provider Bryon Cruz Referred Address [address] [place] [address] Referred Provider Specialty Anesthesiolo gy Referral Priority Routine Reason evaluate and treat - Left hip pain Diagnosis 1 Cervical radiculopat hy (M54.12) Referral Organization [facility] Referring Provider First Name Valencia Referring Provider Last Name Webster Referring Provider Specialty Nurse Pract itioner Referred Organization [facility] Referred Provider Jakob Mora Jr. Referred Address ,[place], [place],[address] Referred Provider Specialty Orthopedic S urgery Referral Priority Routine Specialty Diagnoses / Procedures Referred By Rosanne t Referred To Contact MR IMAGING Diagnoses Malignant neoplasm of rectum (HCC) Procedures MRI RECTUM WO/W IVCON MRI PELVIS W/O & W/[place] [address] [address] [place] [address] Mr Imaging Referral ID Status Reason Start Date Expiration Date Visits Requested Visits Authorized [id number] Authorized Auto-Generat ed Referral 02/07/2023 03/08/2024 1 1 Specialty Diagnoses / Procedures Referred By Contac t Referred To Contact [facility] Diagnoses Rectal cancer (HCC) Procedures COLONOSCOPY DIAGNOSTIC COLONOSCOPY FLX DX W/[place] [address] [address] [place] [address] [facility] [address] [place] [address] [place] [address] Referral ID Status Reason Start Date Expiration Date Visits Requested Visits Authorized [id number] Authorized Auto-Generat ed Referral 02/07/2023 02/08/2024 1 1 Specialty Diagnoses / Procedures Referred By Contac t Referred To Contact Colon and Rectal Surgery Diagnoses Rectal cancer (HCC) Procedures CONSULT TO [place] [address] [place] [address] [place] [address] [address] [facility] [address] [place] [address] Referral ID Status Reason Start Date Expiration Date Visits Requested Visits Authorized [id number] Ref Not Required PCP Requested Referral 02/04/2023 02/04/2024 1 1 Specialty Diagnoses / Procedures Referred By Contac t Referred To Contact Gastroenterology Diagnoses Rectal cancer (HCC) Rectal bleeding Procedures CONSULT TO GASTROENTEROLOGY OFFICE/OUTPATIENT [facility] 60-74 MINUTES Andree Hollis, COMMUNICATIONS SCIENTIST.CHAINSTITCH ZIPPER SETTER [address] [place] [address] Referral ID Status Reason Start Date Expiration Date Visits Requested Visits Authorized [id number] Authorized PCP Requested Referral 01/23/2023 01/23/2024 1 1 Specialty Diagnoses / Procedures Referred By Contac t Referred To Contact CT IMAGING Diagnoses Lung nodules Procedures CT CHEST W IVCON DIAGNOSTIC COMPUTED TOMOGRAPHY THORAX W/CONTRAST Minerva Anderson MD [address] [place] [address] Ct Imaging Referral ID Status Reason Start Date Expiration Date Visits Requested Visits Authorized [id number] Authorized Auto-Generat ed Referral 11/19/2022 12/19/2023 1 1 Specialty Diagnoses / Procedures Referred By Contac t Referred To Contact CT IMAGING Diagnoses Lung nodules Rectal cancer (HCC) Procedures CT ABD/PEL W IVCON CT ABD & PELVIS W/CONTRAST Minerva Anderson MD [address] [place] [address] Ct Imaging Referral ID Status Reason Start Date Expiration Date Visits Requested Visits Authorized [id number] Authorized Auto-Generat ed Referral 11/19/2022 12/19/2023 1 1 Specialty Diagnoses / Procedures Referred By Contac t Referred To Contact RADIATION ONCOLOGY Diagnoses Rectal adenocarcinoma (HCC) Procedures CT SIM PLANNING RADIATION ONCOLOGY THER RAD SIMULAJ-AIDED FIELD SETTING COMPLEX IMRT Dania Key MD [address] [place] [address] [place] [address] [facility] [place] [address] [place] [address] Referral ID Status Reason Start Date Expiration Date Visits Requested Visits Authorized [id number] Pending Review PCP Requested Referral 09/24/2022 12/23/2022 1 1 Specialty Diagnoses / Procedures Referred By Contac t Referred To Contact Radiation Oncology Diagnoses Rectal cancer (HCC) Procedures RAD/ONC CONSULT OFFICE/OUTPATIENT [facility] MDM 60-74 MINUTES Minerva Anderson MD [address] [place] [address] [place] [address] Referral ID Status Reason Start Date Expiration Date Visits Requested Visits Authorized [id number] Authorized PCP Requested Referral 2 09/17/2023 1 1 Specialty Diagnoses / Procedures Referred By Contac t Referred To Contact MR IMAGING Diagnoses Rectal cancer (HCC) Procedures MRI ABDOMEN WO/W IVCON MRI ABDOMEN W/O & W/CONTRAST MATERIAL Minerva Anderson MD [address] [place] [address] [place] [address] Mr Imaging Referral ID Status Reason Start Date Expiration Date Visits Requested Visits Authorized [id number] Pending Review Auto-Generat ed Referral 2 10/17/2023 1 1 Specialty Diagnoses / Procedures Referred By Contac t Referred To Contact MOLECULAR & FUNCTIONAL IMAGING Diagnoses Rectal cancer (HCC) Procedures NM PET/CT SKULL-THIGH INITIAL PET IMAGING CT ATTENUATION SKULL BASE MID-THIGH Minerva Anderson MD [address] [place] [address] [place] [address] Molecular & Functional Imaging [address] [place] [address] Referral ID Status Reason Start Date Expiration Date Visits Requested Visits Authorized [id number] Authorized Auto-Generat ed Referral 2 10/17/2023 1 1 Chief Complaint and Reason for Visit Chief Complaint staging for rectal c a Chief Complaint M54.12 Chief Complaint M54.12 m54.12 Chief Complaint m54.12 G62.9 Chief Complaint Admit Date Hemorrhoids March 18, 2025 12:56 pm Reason for Visit Admit Date Family history of colon cancer March 18, 2025 12:56pm Hemorrhoids March 18, 2025 12:56 pm Medications Administered Section Inactive Administered Medications - [...] and content) DATE CREATED AUTHOR 08/09/2021 [facility] DATE CREATED AUTHOR AUTHOR'S ORGANIZ ATION 09/27/2022 [facility] DATE CREATED AUTHOR AUTHOR'S ORGANIZ ATION 04/19/2023 [facility] DATE CREATED AUTHOR AUTHOR'S ORGANIZ ATION 08/16/2023 [facility] DATE CREATED AUTHOR AUTHOR'S ORGANIZ ATION 01/07/2024 [facility] DATE CREATED AUTHOR AUTHOR'S ORGANIZ ATION 07/24/2024 [facility] DATE CREATED AUTHOR AUTHOR'S ORGANIZ ATION 07/27/2024 [facility] DATE CREATED AUTHOR AUTHOR'S ORGANIZ ATION 08/01/2024 [facility] DATE CREATED AUTHOR AUTHOR'S ORGANIZ ATION 08/02/2024 [facility] DATE CREATED AUTHOR AUTHOR'S ORGANIZ ATION 08/25/2024 [facility] DATE CREATED AUTHOR AUTHOR'S ORGANIZ ATION 08/26/2024 [facility] DATE CREATED AUTHOR AUTHOR'S ORGANIZ ATION 09/01/2024 [facility] DATE CREATED AUTHOR AUTHOR'S ORGANIZ ATION 09/30/2024 [facility] DATE CREATED AUTHOR AUTHOR'S ORGANIZ ATION 10/15/2024 [facility] DATE CREATED AUTHOR AUTHOR'S ORGANIZ ATION 10/22/2024 [facility] DATE CREATED AUTHOR AUTHOR'S ORGANIZ ATION 12/21/2024 [facility] DATE CREATED AUTHOR AUTHOR'S ORGANIZ ATION 02/18/2025 [facility] DATE CREATED AUTHOR AUTHOR'S ORGANIZ ATION 03/16/2025 [facility] DATE CREATED AUTHOR AUTHOR'S ORGANIZ ATION 04/11/2025 [facility] DATE CREATED AUTHOR AUTHOR'S ORGANIZ ATION 04/15/2025 [facility] DATE CREATED AUTHOR AUTHOR'S ORGANIZ ATION 05/02/2025 [facility] EPIC DATE CREATED AUTHOR AUTHOR'S ORGANIZ ATION 06/20/2025 [facility] DATE CREATED AUTHOR AUTHOR'S ORGANIZ ATION 07/14/2025 [facility] DATE CREATED AUTHOR AUTHOR'S ORGANIZ ATION 07/25/2025 [facility] DATE CREATED AUTHOR AUTHOR'S ORGANIZ ATION 07/27/2025 [facility] Care Team (unrecognized sect ion and content) Team Status: Active Member Role Status Dates Lorenzo Marin DO Primary Care Provider Active Team Status: Inactive Member Role Status Dates Lorenzo Marin DO Primary Care Provider Active JM Busby Attending Provider Active Universal Grinder Set Up Operator Relationship Specialty Start Date End Date Lorenzo Marin DO PCP - General Family Medicine 04/16/13 Universal Grinder Set Up Operator Relationship Specialty Start Date End Date Lorenzo Marin DO PCP - General Family Medicine 04/16/13 Universal Grinder Set Up Operator Relationship Specialty Start Date End Date Lorenzo Marin DO PCP - General Family Medicine 04/16/13 Universal Grinder Set Up Operator Relationship Specialty Start Date End Date Lorenzo Marin DO PCP - General Family Medicine 04/16/13 Universal Grinder Set Up Operator Relationship Specialty Start Date End Date Lorenzo Marin DO PCP - General Family Medicine 04/16/13 Universal Grinder Set Up Operator Relationship Specialty Start Date End Date Lorenzo Marin DO PCP - General Family Medicine 04/16/13 Universal Grinder Set Up Operator Relationship Specialty Start Date End Date Lorenzo Marin DO PCP - General Family Medicine 04/16/13 Universal Grinder Set Up Operator Relationship Specialty Start Date End Date Lorenzo Marin DO PCP - General Family Medicine 04/16/13 Universal Grinder Set Up Operator Relationship Specialty Start Date End Date Lorenzo Marin DO PCP - General Family Medicine 04/16/13 Universal Grinder Set Up Operator Relationship Specialty Start Date End Date Lorenzo Marin DO PCP - General Family Medicine 04/16/13 Universal Grinder Set Up Operator Relationship Specialty Start Date End Date Lorenzo Marin DO PCP - General Family Medicine 04/16/13 Sera Forbes LSW E Commerce Developer 09/26/22 Team Status: Inactive Member Role Status Dates Lorenzo Marin DO Primary Care Provider Active Minerva Anderson MD Attending Provider Active Universal Grinder Set Up Operator Relationship Specialty Start Date End Date Lorenzo Marin DO PCP - General Family Medicine 04/16/13 Sera Forbes LSW E Commerce Developer 09/26/22 Minerva Anderson MD [address] [address] Physician Hematology/Oncology 10/01/22 Dania Key MD [address] [address] Physician Radiation Oncology 10/01/22 Andree Hollis, COMMUNICATIONS SCIENTIST.[facility] [address] [address] Nurse Practitioner Hematology/Oncology 10/01/22 Denisha Duarte, ALEXUS [address] [address] Specialty Library Consultant Hematology/Oncology 10/01/22 Universal Grinder Set Up Operator Relationship Specialty Start Date End Date Lorenzo Marin DO PCP - General Family Medicine 04/16/13 Sera Forbes LSW E Commerce Developer 09/26/22 Minerva Anderson MD [address] [place], [place] [address] Physician Hematology/Oncology 10/01/22 Dania Key MD [address] [address] Physician Radiation Oncology 10/01/22 Andree oHllis, COMMUNICATIONS SCIENTIST.CHAINSTITCH ZIPPER SETTER [address] [address] Nurse Practitioner Hematology/Oncology 10/01/22 Denisha Duarte, RN [address] [address] Specialty Library Consultant Hematology/Oncology 10/01/22 Universal Grinder Set Up Operator Relationship Specialty Start Date End Date Lorenzo Marin DO PCP - General Family Medicine 04/16/13 Sera Forbes LSW E Commerce Developer 09/26/22 Minerva Anderson MD [address] [address] Physician Hematology/Oncology 10/01/22 Dania Key MD [address] [address] Physician Radiation Oncology 10/01/22 Andree Hollis, COMMUNICATIONS SCIENTIST.CHAINSTITCH ZIPPER SETTER [address] [address] Nurse Practitioner Hematology/Oncology 10/01/22 Denisha Duarte, RN [address] [address] Specialty Library Consultant Hematology/Oncology 10/01/22 Universal Grinder Set Up Operator Relationship Specialty Start Date End Date Lorenzo Marin DO PCP - General Family Medicine 04/16/13 Sera Forbes LSW E Commerce Developer 09/26/22 Minerva Anderson MD [address] [address] Physician Hematology/Oncology 10/01/22 Dania Key MD [address] [place], [place] [address] Physician Radiation Oncology 10/01/22 Andree Hollis, AZAEL.CHAINSTITCH ZIPPER SETTER [address] [address] Nurse Practitioner Hematology/Oncology 10/01/22 Denisha Duarte, ALEXUS [address] [address] Specialty Library Consultant Hematology/Oncology 10/01/22 Universal Grinder Set Up Operator Relationship Specialty Start Date End Date Lorenzo Marin DO PCP - General Family Medicine 04/16/13 Sera Forbes LSW E Commerce Developer 09/26/22 Minerva Anderson MD [address] [address] Physician Hematology/Oncology 10/01/22 Dania Key MD [address] [address] Physician Radiation Oncology 10/01/22 Andree Hollis, AZAEL.CHAINSTITCH ZIPPER SETTER [address] [address] Nurse Practitioner Hematology/Oncology 10/01/22 Denisha Duarte, ALEXUS [address] [address] Specialty Library Consultant Hematology/Oncology 10/01/22 Universal Grinder Set Up Operator Relationship Specialty Start Date End Date Lorenzo Marin DO PCP - General Family Medicine 04/16/13 Sera Forbes, VP CLINICAL E Commerce Developer 09/26/22 Minerva Anderson MD [address] [place], [place] [address] Physician Hematology/Oncology 10/01/22 Dania Key MD [address] [address] Physician Radiation Oncology 10/01/22 Andree Hollis, COMMUNICATIONS SCIENTIST.CHAINSTITCH ZIPPER SETTER [address] [address] Nurse Practitioner Hematology/Oncology 10/01/22 Denisha Duarte, ALEXUS [address] [address] Specialty Library Consultant Hematology/Oncology 10/01/22 Universal Grinder Set Up Operator Relationship Specialty Start Date End Date Lorenzo Marin DO PCP - General Family Medicine 04/16/13 Sera Forbes, VP CLINICAL E Commerce Developer 09/26/22 Minerva Anderson MD [address] [address] Physician Hematology/Oncology 10/01/22 Dania Key MD [address] [address] Physician Radiation Oncology 10/01/22 Andree Hollis, COMMUNICATIONS SCIENTIST.CHAINSTITCH ZIPPER SETTER [address] [address] Nurse Practitioner Hematology/Oncology 10/01/22 Denisha Duarte, RN [address] [address] Specialty Library Consultant Hematology/Oncology 10/01/22 Universal Grinder Set Up Operator Relationship Specialty Start Date End Date Lorenzo Marin DO PCP - General Family Medicine 04/16/13 Sera Forbes, [facility] E Commerce Developer 09/26/22 Minerva Anderson MD [address] [address] Physician Hematology/Oncology 10/01/22 Dania Key MD [address] [address] Physician Radiation Oncology 10/01/22 Andree Hollis, COMMUNICATIONS SCIENTIST.CHAINSTITCH ZIPPER SETTER [address] [address] Nurse Practitioner Hematology/Oncology 10/01/22 Denisha Duarte, RN [address] [address] Specialty Library Consultant Hematology/Oncology 10/01/22 Universal Grinder Set Up Operator Relationship Specialty Start Date End Date Lorenzo Marin DO PCP - General Family Medicine 04/16/13 Sera Forbes, [facility] E Commerce Developer 09/26/22 Minerva Anderson MD [address] [address] Physician Hematology/Oncology 10/01/22 Dania Key MD [address] [address] Physician Radiation Oncology 10/01/22 Andree Hollis, COMMUNICATIONS SCIENTIST.CHAINSTITCH ZIPPER SETTER [address] [address] Nurse Practitioner Hematology/Oncology 10/01/22 Denisha Duarte, ALEXUS [address] [address] Specialty Library Consultant Hematology/Oncology 10/01/22 Universal Grinder Set Up Operator Relationship Specialty Start Date End Date Lorenzo Marin DO PCP - General Family Medicine 04/16/13 Sera Forbes, [facility] E Commerce Developer 09/26/22 Minerva Anderson MD [address] [address] Physician Hematology/Oncology 10/01/22 Dania Key MD [address] [address] Physician Radiation Oncology 10/01/22 Andree Hollis, COMMUNICATIONS SCIENTIST.CHAINSTITCH ZIPPER SETTER [address] [address] Nurse Practitioner Hematology/Oncology 10/01/22 Denisha Duarte, ALEXUS [address] [place], [place] [address] Specialty Library Consultant Hematology/Oncology 10/01/22 Universal Grinder Set Up Operator Relationship Specialty Start Date End Date Lorenzo Marin DO PCP - General Family Medicine 04/16/13 Sera Forbes, [facility] E Commerce Developer 09/26/22 Minerva Anderson MD [address] [address] Physician Hematology/Oncology 10/01/22 Dania Key MD [address] [address] Physician Radiation Oncology 10/01/22 Andree Hollis, COMMUNICATIONS SCIENTIST.CHAINSTITCH ZIPPER SETTER [address] [address] Nurse Practitioner Hematology/Oncology 10/01/22 Denisha Duarte, ALEXUS [address] [address] Specialty Library Consultant Hematology/Oncology 10/01/22 Universal Grinder Set Up Operator Relationship Specialty Start Date End Date Lorenzo Marin DO PCP - General Family Medicine 04/16/13 Sera Forbes LSW E Commerce Developer 09/26/22 Minerva Anderson MD [address] [address] Physician Hematology/Oncology 10/01/22 Dania Key MD [address] [place] [address] [place] [address] Physician Radiation Oncology 10/01/22 Andree Hollis, COMMUNICATIONS SCIENTIST.CHAINSTITCH ZIPPER SETTER [address] [address] Nurse Practitioner Hematology/Oncology 10/01/22 Denisha Duarte, RN [address] [address] Specialty Library Consultant Hematology/Oncology 10/01/22 Universal Grinder Set Up Operator Relationship Specialty Start Date End Date Lorenzo Marin DO PCP - General Family Medicine 04/16/13 Sera Forbes LSW E Commerce Developer 09/26/22 Minerva Anderson MD [address] [address] Physician Hematology/Oncology 10/01/22 Dania Key MD [address] [address] Physician Radiation Oncology 10/01/22 Andree Hollis, COMMUNICATIONS SCIENTIST.CHAINSTITCH ZIPPER SETTER [address] [address] Nurse Practitioner Hematology/Oncology 10/01/22 Denisha Duarte, RN [address] [address] Specialty Library Consultant Hematology/Oncology 10/01/22 Universal Grinder Set Up Operator Relationship Specialty Start Date End Date Lorenzo Marin DO PCP - General Family Medicine 04/16/13 Sera Forbes LSW E Commerce Developer 09/26/22 Minerva Anderson MD [address] [address] Physician Hematology/Oncology 10/01/22 Dania Key MD [address] [address] Physician Radiation Oncology 10/01/22 Andree Hollis, COMMUNICATIONS SCIENTIST.CHAINSTITCH ZIPPER SETTER [address] [address] Nurse Practitioner Hematology/Oncology 10/01/22 Denisha Duarte, ALEXUS [address] [address] Specialty Library Consultant Hematology/Oncology 10/01/22 Universal Grinder Set Up Operator Relationship Specialty Start Date End Date Lorenzo Marin DO PCP - General Family Medicine 04/16/13 Sera Forbes LSW E Commerce Developer 09/26/22 Minerva Anderson MD [address] [place], [place] [address] Physician Hematology/Oncology 10/01/22 Dania Key MD [address] [address] Physician Radiation Oncology 10/01/22 Andree Hollis, COMMUNICATIONS SCIENTIST.[facility] [address] [address] Nurse Practitioner Hematology/Oncology 10/01/22 Denisha Duarte, ALEXUS [address] [address] Specialty Library Consultant Hematology/Oncology 10/01/22 Universal Grinder Set Up Operator Relationship Specialty Start Date End Date Lorenzo Marin DO PCP - General Family Medicine 04/16/13 Sera Forbes LSW E Commerce Developer 09/26/22 Minerva Anderson MD [address] [address] Physician Hematology/Oncology 10/01/22 Dania Key MD [address] [address] Physician Radiation Oncology 10/01/22 Andree Hollis, COMMUNICATIONS SCIENTIST.[facility] [address] [address] Nurse Practitioner Hematology/Oncology 10/01/22 Denisha Duarte, ALEXUS [address] [address] Specialty Library Consultant Hematology/Oncology 10/01/22 Universal Grinder Set Up Operator Relationship Specialty Start Date End Date Lorenzo Marin DO PCP - General Family Medicine 04/16/13 Sera Forbes LSW E Commerce Developer 09/26/22 Minerva Anderson MD [address] [address] Physician Hematology/Oncology 10/01/22 Dania Key MD [address] [address] Physician Radiation Oncology 10/01/22 Andree Hollis, COMMUNICATIONS SCIENTIST.CHAINSTITCH ZIPPER SETTER [address] [address] Nurse Practitioner Hematology/Oncology 10/01/22 Denisha Duarte, RN [address] [address] Specialty Library Consultant Hematology/Oncology 10/01/22 Universal Grinder Set Up Operator Relationship Specialty Start Date End Date Lorenzo Marin DO PCP - General Family Medicine 04/16/13 Sera Forbes, DAI E Commerce Developer 09/26/22 Minerva Anderson MD [address] [address] Physician Hematology/Oncology 10/01/22 Dania Key MD [address] [address] Physician Radiation Oncology 10/01/22 Andree Hollis, COMMUNICATIONS SCIENTIST.CHAINSTITCH ZIPPER SETTER [address] [address] Nurse Practitioner Hematology/Oncology 10/01/22 Denisha Duarte, RN [address] [address] Specialty Library Consultant Hematology/Oncology 10/01/22 Universal Grinder Set Up Operator Relationship Specialty Start Date End Date Lorenzo Marin DO PCP - General Family Medicine 04/16/13 Sera Forbes, [facility] E Commerce Developer 09/26/22 Minerva Anderson MD [address] [address] Physician Hematology/Oncology 10/01/22 Dania Key MD [address] [place], [place] [address] Physician Radiation Oncology 10/01/22 Andree Hollis, COMMUNICATIONS SCIENTIST.[facility] [address] [address] Nurse Practitioner Hematology/Oncology 10/01/22 Denisha Duarte, RN [address] [address] Specialty Library Consultant Hematology/Oncology 10/01/22 Universal Grinder Set Up Operator Relationship Specialty Start Date End Date Lorenzo Marin DO PCP - General Family Medicine 04/16/13 Sera Forbes LSW E Commerce Developer 09/26/22 Minerva Anderson MD [address] [address] Physician Hematology/Oncology 10/01/22 Dania Key MD [address] [address] Physician Radiation Oncology 10/01/22 Andree Hollis, COMMUNICATIONS SCIENTIST.[address] [place] [address] Nurse Practitioner Hematology/Oncology 10/01/22 Denisha Duarte, ALEXUS [address] [address] Specialty Library Consultant Hematology/Oncology 10/01/22 Universal Grinder Set Up Operator Relationship Specialty Start Date End Date Lorenzo Marin DO PCP - General Family Medicine 04/16/13 Sera Forbes LSW E Commerce Developer 09/26/22 Minerva Anderson MD [address] [address] Physician Hematology/Oncology 10/01/22 Dania Key MD [address] [address] Physician Radiation Oncology 10/01/22 Andree Hollis, COMMUNICATIONS SCIENTIST.[facility] [address] [address] Nurse Practitioner Hematology/Oncology 10/01/22 Denisha Duarte, ALEXUS [address] [address] Specialty Library Consultant Hematology/Oncology 10/01/22 Universal Grinder Set Up Operator Relationship Specialty Start Date End Date Lorenzo Marin DO PCP - General Family Medicine 04/16/13 Sera Forbes, [facility] E Commerce Developer 09/26/22 Minerva Anderson MD [address] [address] Physician Hematology/Oncology 10/01/22 Dania Key MD [address] [address] Physician Radiation Oncology 10/01/22 Andree Hollis, COMMUNICATIONS SCIENTIST.[facility] [address] [address] Nurse Practitioner Hematology/Oncology 10/01/22 Denisha Duarte, ALEXUS [address] [place], [place] [address] Specialty Library Consultant Hematology/Oncology 10/01/22 Universal Grinder Set Up Operator Relationship Specialty Start Date End Date Lorenzo Marin DO PCP - General Family Medicine 04/16/13 Sera Forbes LSW E Commerce Developer 09/26/22 Minerva Anderson MD [address] [address] Physician Hematology/Oncology 10/01/22 Dania Key MD [address] [address] Physician Radiation Oncology 10/01/22 Andree Hollis, COMMUNICATIONS SCIENTIST.CHAINSTITCH ZIPPER SETTER [address] [address] Nurse Practitioner Hematology/Oncology 10/01/22 Denisha Duarte, RN [address] [address] Specialty Library Consultant Hematology/Oncology 10/01/22 Universal Grinder Set Up Operator Relationship Specialty Start Date End Date Lorenzo Marin DO PCP - General Family Medicine 04/16/13 Sera Forbes [facility] E Commerce Developer 09/26/22 Minerva Anderson MD [address] [address] Physician Hematology/Oncology 10/01/22 Dania Key MD [address] [address] Physician Radiation Oncology 10/01/22 Andree Hollis, COMMUNICATIONS SCIENTIST.CHAINSTITCH ZIPPER SETTER [address] [address] Nurse Practitioner Hematology/Oncology 10/01/22 Denisha Duarte, ALEXUS [address] [address] Specialty Library Consultant Hematology/Oncology 10/01/22 Universal Grinder Set Up Operator Relationship Specialty Start Date End Date Lorenzo Marin DO PCP - General Family Medicine 04/16/13 Sera Forbes LSW E Commerce Developer 09/26/22 Minerva Anderson MD [address] [place], [place] [address] Physician Hematology/Oncology 10/01/22 Dania Key MD [address] [address] Physician Radiation Oncology 10/01/22 Andree Hollis, COMMUNICATIONS SCIENTIST.CHAINSTITCH ZIPPER SETTER [address] [address] Nurse Practitioner Hematology/Oncology 10/01/22 Denisha Duarte, ALEXUS [address] [address] Specialty Library Consultant Hematology/Oncology 10/01/22 Universal Grinder Set Up Operator Relationship Specialty Start Date End Date Lorenzo Marin DO PCP - General Family Medicine 04/16/13 Sera Forbes LSW E Commerce Developer 09/26/22 Minerva Anderson MD [address] [address] Physician Hematology/Oncology 10/01/22 Dania Key MD [address] [address] Physician Radiation Oncology 10/01/22 Andree Hollis, COMMUNICATIONS SCIENTIST.CHAINSTITCH ZIPPER SETTER [address] [address] Nurse Practitioner Hematology/Oncology 10/01/22 Denisha Duarte, ALEXUS [address] [address] Specialty Library Consultant Hematology/Oncology 10/01/22 Universal Grinder Set Up Operator Relationship Specialty Start Date End Date Lorenzo Marin DO PCP - General Family Medicine 04/16/13 Sera Forbes, VP [facility] E Commerce Developer 09/26/22 Minerva Anderson MD [address] [place], [place] [address] Physician Hematology/Oncology 10/01/22 Dania Key MD [address] [address] Physician Radiation Oncology 10/01/22 Andree Hollis, COMMUNICATIONS SCIENTIST.CHAINSTITCH ZIPPER SETTER [address] [address] Nurse Practitioner Hematology/Oncology 10/01/22 Denisha Duarte, ALEXUS [address] [address] Specialty Library Consultant Hematology/Oncology 10/01/22 Universal Grinder Set Up Operator Relationship Specialty Start Date End Date Lorenzo Marin DO PCP - General Family Medicine 04/16/13 Sera Forbes [facility] E Commerce Developer 09/26/22 Minerva Anderson MD [address] [place], [place] [address] Physician Hematology/Oncology 10/01/22 Dania Key MD [address] [address] Physician Radiation Oncology 10/01/22 Andree Hollis, COMMUNICATIONS SCIENTIST.CHAINSTITCH ZIPPER SETTER [address] [address] Nurse Practitioner Hematology/Oncology 10/01/22 Denisha Duarte, ALEXUS [address] [address] Specialty Library Consultant Hematology/Oncology 10/01/22 Universal Grinder Set Up Operator Relationship Specialty Start Date End Date Lorenzo Marin DO PCP - General Family Medicine 04/16/13 Sera Forbes, [facility] E Commerce Developer 09/26/22 Minerva Anderson MD [address] [address] Physician Hematology/Oncology 10/01/22 Dania Key MD [address] [address] Physician Radiation Oncology 10/01/22 Andree Hollis, COMMUNICATIONS SCIENTIST.[facility] [address] [address] Nurse Practitioner Hematology/Oncology 10/01/22 Denisha Duarte RN [address] [address] Specialty Library Consultant Hematology/Oncology 10/01/22 Universal Grinder Set Up Operator Relationship Specialty Start Date End Date Lorenzo Marin DO PCP - General Family Medicine 04/16/13 Sera Forbes, [facility] E Commerce Developer 09/26/22 Minerva Anderson MD [address] [address] Physician Hematology/Oncology 10/01/22 Dania Key MD [address] [address] Physician Radiation Oncology 10/01/22 Andree Hollis, COMMUNICATIONS SCIENTIST.CHAINSTITCH ZIPPER SETTER [address] [address] Nurse Practitioner Hematology/Oncology 10/01/22 Denisha Duarte, ALEXUS [address] [address] Specialty Library Consultant Hematology/Oncology 10/01/22 Universal Grinder Set Up Operator Relationship Specialty Start Date End Date Lorenzo Marin DO PCP - General Family Medicine 04/16/13 Sera Forbes, [facility] E Commerce Developer 09/26/22 Minerva Anderson MD [address] [address] Physician Hematology/Oncology 10/01/22 Dania Key MD [address] [address] Physician Radiation Oncology 10/01/22 Andree Hollis, COMMUNICATIONS SCIENTIST.CHAINSTITCH ZIPPER SETTER [address] [address] Nurse Practitioner Hematology/Oncology 10/01/22 Denisha Duarte RN [address] [place], [place] [address] Specialty Library Consultant Hematology/Oncology 10/01/22 Universal Grinder Set Up Operator Relationship Specialty Start Date End Date Lorenzo Marin DO PCP - General Family Medicine 04/16/13 Sera Forbes, [facility] E Commerce Developer 09/26/22 Minerva Anderson MD [address] [address] Physician Hematology/Oncology 10/01/22 Dania Key MD [address] [address] Physician Radiation Oncology 10/01/22 Andree Hollis, COMMUNICATIONS SCIENTIST.CHAINSTITCH ZIPPER SETTER [address] [address] Nurse Practitioner Hematology/Oncology 10/01/22 Denisha Duarte, ALEXUS [address] [place], [place] [address] Specialty Library Consultant Hematology/Oncology 10/01/22 Universal Grinder Set Up Operator Relationship Specialty Start Date End Date Lorenzo Marin DO PCP - General Family Medicine 04/16/13 Sera Forbes, [facility] E Commerce Developer 09/26/22 Minerva Anderson MD [address] [address] Physician Hematology/Oncology 10/01/22 Dania Key MD [address] [address] Physician Radiation Oncology 10/01/22 Andree Hollis, AZAEL.CHAINSTITCH ZIPPER SETTER [address] [place], [place] [address] Nurse Practitioner Hematology/Oncology 10/01/22 Denisha Duarte, RN [address] [address] Specialty Library Consultant Hematology/Oncology 10/01/22 Universal Grinder Set Up Operator Relationship Specialty Start Date End Date Lorenzo Marin DO PCP - General Family Medicine 04/16/13 Sera Forbes, DAI E Commerce Developer 09/26/22 Minerva Anderson MD [address] [address] Physician Hematology/Oncology 10/01/22 Dania Key MD [address] [address] Physician Radiation Oncology 10/01/22 Andree Hollis, COMMUNICATIONS SCIENTIST.CHAINSTITCH ZIPPER SETTER [address] [address] Nurse Practitioner Hematology/Oncology 10/01/22 Denisha Duarte, RN [address] [address] Specialty Library Consultant Hematology/Oncology 10/01/22 Universal Grinder Set Up Operator Relationship Specialty Start Date End Date Lorenzo Marin DO PCP - General Family Medicine 04/16/13 Sera Forbes LSW E Commerce Developer 09/26/22 Minerva Anderson MD [address] [place], [place] [address] Physician Hematology/Oncology 10/01/22 Dania Key MD [address] [address] Physician Radiation Oncology 10/01/22 Andree Hollis, COMMUNICATIONS SCIENTIST.CHAINSTITCH ZIPPER SETTER [address] [address] Nurse Practitioner Hematology/Oncology 10/01/22 Denisha Duarte, RN [address] [address] Specialty Library Consultant Hematology/Oncology 10/01/22 Universal Grinder Set Up Operator Relationship Specialty Start Date End Date Lorenzo Marin DO PCP - General Family Medicine 04/16/13 Sera Forbes LSW E Commerce Developer 09/26/22 Minerva Anderson MD [address] [address] Physician Hematology/Oncology 10/01/22 Dania Key MD [address] [address] Physician Radiation Oncology 10/01/22 Andree Hollis, COMMUNICATIONS SCIENTIST.[facility] [address] [address] Nurse Practitioner Hematology/Oncology 10/01/22 Denisha Duarte, ALEXUS [address] [address] Specialty Library Consultant Hematology/Oncology 10/01/22 Universal Grinder Set Up Operator Relationship Specialty Start Date End Date Lorenzo Marin DO PCP - General Family Medicine 04/16/13 Sera Forbes LSW E Commerce Developer 09/26/22 Minerva Anderson MD [address] [address] Physician Hematology/Oncology 10/01/22 Dania Key MD [address] [address] Physician Radiation Oncology 10/01/22 Andree Hollis, COMMUNICATIONS SCIENTIST.[facility] [address] [address] Nurse Practitioner Hematology/Oncology 10/01/22 Denisha Duarte, ALEXUS [address] [address] Specialty Library Consultant Hematology/Oncology 10/01/22 Universal Grinder Set Up Operator Relationship Specialty Start Date End Date Lorenzo Marin DO PCP - General Family Medicine 04/16/13 Sera Forbes LSW E Commerce Developer 09/26/22 Minerva Anderson MD [address] [address] Physician Hematology/Oncology 10/01/22 Dania Key MD [address] [address] Physician Radiation Oncology 10/01/22 Andree Hollis, COMMUNICATIONS SCIENTIST.CHAINSTITCH ZIPPER SETTER [address] [place] [address] [place] [address] Nurse Practitioner Hematology/Oncology 10/01/22 Denisha Duarte, ALEXUS [address] [place] [address] [place] [address] Specialty Library Consultant Hematology/Oncology 10/01/22 Chelsie Kolb, RN Specialty Library Consultant Colon and Rectal Surgery 02/18/23 02/19/28 Universal Grinder Set Up Operator Relationship Specialty Start Date End Date Lorenzo Marin DO PCP - General Family Medicine 04/16/13 Sera Forbes LSW E Commerce Developer 09/26/22 Minerva Anderson MD [address] [address] Physician Hematology/Oncology 10/01/22 Dania Key MD [address] [address] Physician Radiation Oncology 10/01/22 Andree Hollis, COMMUNICATIONS SCIENTIST.CHAINSTITCH ZIPPER SETTER [address] [address] Nurse Practitioner Hematology/Oncology 10/01/22 Denisha Duarte, ALEXUS [address] [address] Specialty Library Consultant Hematology/Oncology 10/01/22 Chelsie Kolb, RN Specialty Library Consultant Colon and Rectal Surgery 02/18/23 02/19/28 Universal Grinder Set Up Operator Relationship Specialty Start Date End Date Lorenzo Marin DO PCP - General Family Medicine 04/16/13 Sera Forbes [facility] E Commerce Developer 09/26/22 Minerva Anderson MD [address] [place], [place] [address] Physician Hematology/Oncology 10/01/22 Dania Key MD [address] [address] Physician Radiation Oncology 10/01/22 Andree Hollis, COMMUNICATIONS SCIENTIST.CH[employer]STITCH ZIPPER SETTER [address] [facility] [address] Nurse Practitioner Hematology/Oncology 10/01/22 Denisha Duarte, RN [address] [address] Specialty Library Consultant Hematology/Oncology 10/01/22 Chelsie Kolb RN Specialty Library Consultant Colon and Rectal Surgery 02/18/23 02/19/28 Universal Grinder Set Up Operator Relationship Specialty Start Date End Date Lorenzo Marin DO PCP - General Family Medicine 04/16/13 Sera Forbes [facility] E Commerce Developer 09/26/22 Minerva Anderson MD [address] [address] Physician Hematology/Oncology 10/01/22 Dania Key MD [address] [address] Physician Radiation Oncology 10/01/22 Andree Hollis, COMMUNICATIONS SCIENTIST.CH[employer]STITCH ZIPPER SET[employer] [address] [facility] [address] Nurse Practitioner Hematology/Oncology 10/01/22 Denisha Duarte, RN [address] [address] Specialty Library Consultant Hematology/Oncology 10/01/22 Chelsie Kolb, RN Specialty Library Consultant Colon and Rectal Surgery 02/18/23 02/19/28 Universal Grinder Set Up Operator Relationship Specialty Start Date End Date Lorenzo Marin DO PCP - General Family Medicine 04/16/13 Sera Forbes, [facility] E Commerce Developer 09/26/22 Minerva Anderson MD [address] [place], [place] [id number] Physician Hematology/Oncology 10/01/22 Dania Key MD [address] [address] Physician Radiation Oncology 10/01/22 Andree Hollis, COMMUNICATIONS SCIENTIST.CHAINSTITCH ZIPPER SETTER [address] [address] Nurse Practitioner Hematology/Oncology 10/01/22 Denisha Duarte, ALEXUS [address] [address] Specialty Library Consultant Hematology/Oncology 10/01/22 Chelsie Kolb, RN Specialty Library Consultant Colon and Rectal Surgery 02/18/23 02/19/28 Universal Grinder Set Up Operator Relationship Specialty Start Date End Date Lorenzo Marin DO PCP - General Family Medicine 04/16/13 Sera Forbes, [facility] E Commerce Developer 09/26/22 Minerva Anderson MD [address] [address] Physician Hematology/Oncology 10/01/22 Dania Key MD [address] [address] Physician Radiation Oncology 10/01/22 Andree Hollis, COMMUNICATIONS SCIENTIST.CHAINSTITCH ZIPPER SETTER [address] [address] Nurse Practitioner Hematology/Oncology 10/01/22 Denisha Duarte, ALEXUS [address] [place] [address] [place] [address] Specialty Library Consultant Hematology/Oncology 10/01/22 Chelsie Kolb, RN Specialty Library Consultant Colon and Rectal Surgery 02/18/23 02/19/28 Universal Grinder Set Up Operator Relationship Specialty Start Date End Date Lorenzo Marin DO PCP - General Family Medicine 04/16/13 Sera Forbes LSW E Commerce Developer 09/26/22 Minerva Anderson MD [address] [place] [address] [place] [address] Physician Hematology/Oncology 10/01/22 Dania Key MD [address] [place] [address] [place] [address] Physician Radiation Oncology 10/01/22 Andree Hollis, COMMUNICATIONS SCIENTIST.[facility] [address] [address] Nurse Practitioner Hematology/Oncology 10/01/22 Denisha Duarte, ALEXUS [address] [place] [address] [place] [address] Specialty Library Consultant Hematology/Oncology 10/01/22 Chelsie Kolb, RN Specialty Library Consultant Colon and Rectal Surgery 02/18/23 02/19/28 Universal Grinder Set Up Operator Relationship Specialty Start Date End Date Lorenzo Marin DO PCP - General Family Medicine 04/16/13 Sera Forbes LSW E Commerce Developer 09/26/22 Minerva Anderson MD [address] [address] Physician Hematology/Oncology 10/01/22 Dania Key MD [address] [place], [place] 0629570 Physician Radiation Oncology 10/01/22 Andree Hollis, COMMUNICATIONS SCIENTIST.[address] [place] [address] Nurse Practitioner Hematology/Oncology 10/01/22 Denisha Duarte, ALEXUS [address] [place] [address] [place] [address] Specialty Library Consultant Hematology/Oncology 10/01/22 Chelsie Kolb, RN Specialty Library Consultant Colon and Rectal Surgery 02/18/23 02/19/28 Universal Grinder Set Up Operator Relationship Specialty Start Date End Date Lorenzo Marin DO PCP - General Family Medicine 04/16/13 Sera Forbes LSW E Commerce Developer 09/26/22 Minerva Anderson MD [address] [place], [place] 8[address]270 Physician Hematology/Oncology 10/01/22 Dania Key MD [address] [address] Physician Radiation Oncology 10/01/22 Andree Hollis, COMMUNICATIONS SCIENTIST.[address] [place] [address] Nurse Practitioner Hematology/Oncology 10/01/22 Denisha Duarte, ALEXUS [address] [place] [address] [place] [address] Specialty Library Consultant Hematology/Oncology 10/01/22 Chelsie Kolb, RN Specialty Library Consultant Colon and Rectal Surgery 02/18/23 02/19/28 Universal Grinder Set Up Operator Relationship Specialty Start Date End Date Lorenzo Marin DO PCP - General Family Medicine 04/16/13 Sera Forbes, [facility] E Commerce Developer 09/26/22 Minerva Anderson MD [address] [place], [place] 57[address]370 Physician Hematology/Oncology 10/01/22 Dania Key MD [address] [place], [place] 5404170 Physician Radiation Oncology 10/01/22 Andree Hollis, COMMUNICATIONS SCIENTIST.CHAINSTITCH ZIPPER SETTER [address] [address] Nurse Practitioner Hematology/Oncology 10/01/22 Denisha Duarte, RN [address] [address] Specialty Library Consultant Hematology/Oncology 10/01/22 Chelsie Kolb RN Specialty Library Consultant Colon and Rectal Surgery 02/18/23 02/19/28 Universal Grinder Set Up Operator Relationship Specialty Start Date End Date Lorenzo Marin DO PCP - General Family Medicine 04/16/13 Sera Forbes, [facility] E Commerce Developer 09/26/22 Minerva Anderson MD [address] [address] Physician Hematology/Oncology 10/01/22 Dania Key MD [address] [address] Physician Radiation Oncology 10/01/22 Andree Hollis, COMMUNICATIONS SCIENTIST.CHAINSTITCH ZIPPER SETTER [address] [address] Nurse Practitioner Hematology/Oncology 10/01/22 Denisha Duarte, RN [address] [address] Specialty Library Consultant Hematology/Oncology 10/01/22 Chelsie Kolb, RN Specialty Library Consultant Colon and Rectal Surgery 02/18/23 02/19/28 Universal Grinder Set Up Operator Relationship Specialty Start Date End Date Lorenzo Marin DO PCP - General Family Medicine 04/16/13 Sera Forbes, [facility] E Commerce Developer 09/26/22 Minerva Anderson MD [address] [place], [place] 86[address]70 Physician Hematology/Oncology 10/01/22 Dania Key MD [address] [address] Physician Radiation Oncology 10/01/22 Andree Hollis, COMMUNICATIONS SCIENTIST.CHAINSTITCH ZIPPER SETTER [address] [address] Nurse Practitioner Hematology/Oncology 10/01/22 Denisha Duarte, ALEXUS [address] [address] Specialty Library Consultant Hematology/Oncology 10/01/22 Chelsie Kolb, RN Specialty Library Consultant Colon and Rectal Surgery 02/18/23 02/19/28 Universal Grinder Set Up Operator Relationship Specialty Start Date End Date Lorenzo Marin DO PCP - General Family Medicine 04/16/13 Sera Forbes, [facility] E Commerce Developer 09/26/22 Minerva Anderson MD [address] [address] Physician Hematology/Oncology 10/01/22 Dania Key MD [address] [address] Physician Radiation Oncology 10/01/22 Andree Hollis, COMMUNICATIONS SCIENTIST.[address] [place] [address] Nurse Practitioner Hematology/Oncology 10/01/22 Denisha Duarte, ALEXUS [address] [place] [address] [place] [address] Specialty Library Consultant Hematology/Oncology 10/01/22 Chelsie Kolb, RN Specialty Library Consultant Colon and Rectal Surgery 02/18/23 02/19/28 Universal Grinder Set Up Operator Relationship Specialty Start Date End Date Lorenzo Marin DO PCP - General Family Medicine 04/16/13 Sera Forbes LSW E Commerce Developer 09/26/22 Minerva Anderson MD [address] [place] [address] [place] [address] Physician Hematology/Oncology 10/01/22 Dania Key MD [address] [place] [address] [place] [address] Physician Radiation Oncology 10/01/22 Andree Hollis APRN.CHAINSTITCH ZIPPER SETTER [address] [place] [address] [place] [address] Nurse Practitioner Hematology/Oncology 10/01/22 Denisha Duarte, ALEXUS [address] [place] [address] [place] [address] Specialty Library Consultant Hematology/Oncology 10/01/22 Chelsie Kolb, RN Specialty Library Consultant Colon and Rectal Surgery 02/18/23 02/19/28 Universal Grinder Set Up Operator Relationship Specialty Start Date End Date Lorenzo Marin DO PCP - General Family Medicine 04/16/13 Sera Forbes LSW E Commerce Developer 09/26/22 Minerva Anderson MD [address] [place] [address] [place] [address] Physician Hematology/Oncology 10/01/22 Dania Key MD [address] [place] [address] [place] [address] Physician Radiation Oncology 10/01/22 Andree Hollis, COMMUNICATIONS SCIENTIST.CHAINSTITCH ZIPPER SETTER [address] [place] [address] [place] [address] Nurse Practitioner Hematology/Oncology 10/01/22 Denisha Duarte, ALEXUS [address] [address] Specialty Library Consultant Hematology/Oncology 10/01/22 Chelsie Kolb RN Specialty Library Consultant Colon and Rectal Surgery 02/18/23 02/19/28 Universal Grinder Set Up Operator Relationship Specialty Start Date End Date Lorenzo Marin DO PCP - General Family Medicine 04/16/13 Sera Forbes LSW E Commerce Developer 09/26/22 Minerva Anderson MD [address] [place] [address] [place] [address] Physician Hematology/Oncology 10/01/22 Dania Key MD [address] [place] [address] [place] [address] Physician Radiation Oncology 10/01/22 Andree Hollis, COMMUNICATIONS SCIENTIST.CHAINSTITCH ZIPPER SETTER [address] [place] [address] [place] [address] Nurse Practitioner Hematology/Oncology 10/01/22 Denisha Duarte, RN [address] [address] Specialty Library Consultant Hematology/Oncology 10/01/22 Chelsie Kolb, RN Specialty Library Consultant Colon and Rectal Surgery 02/18/23 02/19/28 Universal Grinder Set Up Operator Relationship Specialty Start Date End Date Lorenzo Marin DO PCP - General Family Medicine 04/16/13 Sera Forbes LSW E Commerce Developer 09/26/22 Minerva Anderson MD [address] [facility] [place] [address] Physician Hematology/Oncology 10/01/22 Dania Key MD [address] [address] Physician Radiation Oncology 10/01/22 Andree Hollis APRN.CHAINSTITCH ZIPPER SETTER [address] [address] Nurse Practitioner Hematology/Oncology 10/01/22 Denisha Duarte, ALEXUS [address] [facility] [place] [address] Specialty Library Consultant Hematology/Oncology 10/01/22 Chelsie Kolb, RN Specialty Library Consultant Colon and Rectal Surgery 02/18/23 02/19/28 Universal Grinder Set Up Operator Relationship Specialty Start Date End Date Lorenzo Marin DO PCP - General Family Medicine 04/16/13 Sera Forbes LSW E Commerce Developer 09/26/22 Minerva Anderson MD [address] [address] Physician Hematology/Oncology 10/01/22 Dania Key MD [address] [address] Physician Radiation Oncology 10/01/22 Andree Hollis APRN.CHAINSTITCH ZIPPER SETTER [address] [place] [address] [place] [address] Nurse Practitioner Hematology/Oncology 10/01/22 Denisha Duarte, ALEXUS [address] [place] [address] [place] [address] Specialty Library Consultant Hematology/Oncology 10/01/22 Chelsie Kolb, RN Specialty Library Consultant Colon and Rectal Surgery 02/18/23 02/19/28 Universal Grinder Set Up Operator Relationship Specialty Start Date End Date Lorenzo Marin DO PCP - General Family Medicine 04/16/13 Sera Forbes LSW E Commerce Developer 09/26/22 Minerva Anderson MD [address] [place] [address] [place] [address] Physician Hematology/Oncology 10/01/22 Dania Key MD [address] [place] [address] [place] [address] Physician Radiation Oncology 10/01/22 Andree Hollis APRN.CHAINSTITCH ZIPPER SETTER [address] [place] [address] [place] [address] Nurse Practitioner Hematology/Oncology 10/01/22 Denisha Duarte, ALEXUS [address] [place] [address] [place] [address] Specialty Library Consultant Hematology/Oncology 10/01/22 Chelsie Kolb, RN Specialty Library Consultant Colon and Rectal Surgery 02/18/23 02/19/28 Universal Grinder Set Up Operator Relationship Specialty Start Date End Date Lorenzo Marin DO PCP - General Family Medicine 04/16/13 Srea Forbes LSW E Commerce Developer 09/26/22 Minerva Anderson MD [address] [facility] [place] [address] Physician Hematology/Oncology 10/01/22 Dania Key MD [address] [address] Physician Radiation Oncology 10/01/22 Andree Hollis, COMMUNICATIONS SCIENTIST.CHAINSTITCH ZIPPER SETTER [address] [address] Nurse Practitioner Hematology/Oncology 10/01/22 Denisha Duarte, ALEXUS [address] [address] Specialty Library Consultant Hematology/Oncology 10/01/22 Chelsie Kolb, ALEXUS Specialty Library Consultant Colon and Rectal Surgery 02/18/23 02/19/28 Universal Grinder Set Up Operator Relationship Specialty Start Date End Date Tomas Lorenzo DO Asim PCP - General Family Medicine 04/16/13 Sera Forbes LSW E Commerce Developer 09/26/22 Minerva Anderson MD [address] [place] [address] [place] [address] Physician Hematology/Oncology 10/01/22 Dania Key MD [address] [address] Physician Radiation Oncology 10/01/22 Andree Hollis, COMMUNICATIONS SCIENTIST.CHAINSTITCH ZIPPER SETTER [address] [address] Nurse Practitioner Hematology/Oncology 10/01/22 Denisha Duarte, ALEXUS [address] [place] [address] [place] [address] Specialty Library Consultant Hematology/Oncology 10/01/22 Chelsie Kolb, RN Specialty Library Consultant Colon and Rectal Surgery 02/18/23 02/19/28 Universal Grinder Set Up Operator Relationship Specialty Start Date End Date Lorenzo Marin DO PCP - General Family Medicine 04/16/13 Sera Forbes LSW E Commerce Developer 09/26/22 Minerva Anderson MD [address] [place] [address] [place] [address] Physician Hematology/Oncology 10/01/22 Dania Key MD [address] [place] [address] [place] [address] Physician Radiation Oncology 10/01/22 Andree Hollis APRN.CHAINSTITCH ZIPPER SETTER [address] [place] [address] [place] [address] Nurse Practitioner Hematology/Oncology 10/01/22 Denisha Duarte, ALEXUS [address] [place] [address] [place] [address] Specialty Library Consultant Hematology/Oncology 10/01/22 Chelsie Kolb, RN Specialty Library Consultant Colon and Rectal Surgery 02/18/23 02/19/28 Universal Grinder Set Up Operator Relationship Specialty Start Date End Date Lorenzo Marin DO PCP - General Family Medicine 04/16/13 Sera Forbes LSW E Commerce Developer 09/26/22 Minerva Anderson MD [address] [facility] [address] Physician Hematology/Oncology 10/01/22 Dania Key MD [address] [facility] [address] Physician Radiation Oncology 10/01/22 Andree Hollis, COMMUNICATIONS SCIENTIST.CHAINSTITCH ZIPPER SETTER [address] [facility] [address] Nurse Practitioner Hematology/Oncology 10/01/22 Denisha Duarte, ALEXUS [address] [facility] [address] Specialty Library Consultant Hematology/Oncology 10/01/22 Chelsie Kolb RN Specialty Library Consultant Colon and Rectal Surgery 02/18/23 02/19/28 Universal Grinder Set Up Operator Relationship Specialty Start Date End Date Lorenzo Marin DO PCP - General Family Medicine 04/16/13 Sera Forbes LSW E Commerce Developer 09/26/22 Minerva Anderson MD [address] [facility] [address] Physician Hematology/Oncology 10/01/22 Dania Key MD [address] [facility] [address] Physician Radiation Oncology 10/01/22 Andree Hollis, COMMUNICATIONS SCIENTIST.CHAINSTITCH ZIPPER SETTER [address] [facility] [address] Nurse Practitioner Hematology/Oncology 10/01/22 Denisha Duarte, ALEXUS [address] [facility] [facility] [address] Specialty Library Consultant Hematology/Oncology 10/01/22 Chelsie Kolb, RN Specialty Library Consultant Colon and Rectal Surgery 02/18/23 02/19/28 Universal Grinder Set Up Operator Relationship Specialty Start Date End Date Lorenzo Marin DO PCP - General Family Medicine 04/16/13 Sera Forbes LSW E Commerce Developer 09/26/22 Minerva Anderson MD [address] [place] [address] [place] [address] Physician Hematology/Oncology 10/01/22 Dania Key MD [address] [place] [address] [place] [address] Physician Radiation Oncology 10/01/22 Andree Hollis APRN.CHAINSTITCH ZIPPER SETTER [address] [place] [address] [place] [address] Nurse Practitioner Hematology/Oncology 10/01/22 Denisha Duarte, RN [address] [place] [address] [place] [address] Specialty Library Consultant Hematology/Oncology 10/01/22 Chelsie Kolb, RN Specialty Library Consultant Colon and Rectal Surgery 02/18/23 02/19/28 Universal Grinder Set Up Operator Relationship Specialty Start Date End Date Lorenzo Marin DO PCP - General Family Medicine 04/16/13 Sera Forbes LSW E Commerce Developer 09/26/22 Minerva Anderson MD [address] [place] [address] [place] [address] Physician Hematology/Oncology 10/01/22 Dania Key MD [address] [address] Physician Radiation Oncology 10/01/22 Andree Hollis, COMMUNICATIONS SCIENTIST.CHAINSTITCH ZIPPER SETTER [address] [facility] [address] Nurse Practitioner Hematology/Oncology 10/01/22 Denisha Duarte, ALEXUS [address] [facility] [address] Specialty Library Consultant Hematology/Oncology 10/01/22 Chelsie Kolb, ALEXUS Specialty Library Consultant Colon and Rectal Surgery 02/18/23 02/19/28 Universal Grinder Set Up Operator Relationship Specialty Start Date End Date Lorenzo Marin DO PCP - General Family Medicine 04/16/13 Sera Forbes LSW E Commerce Developer 09/26/22 Minerva Andesron MD [address] [facility] [address] Physician Hematology/Oncology 10/01/22 Dania Key MD [address] [place] [address] [place] [address] Physician Radiation Oncology 10/01/22 Andree Hollis, COMMUNICATIONS SCIENTIST.CHAINSTITCH ZIPPER SETTER [address] [facility] [address] Nurse Practitioner Hematology/Oncology 10/01/22 Denisha Duarte, ALEXUS [address] [facility] [facility] [address] Specialty Library Consultant Hematology/Oncology 10/01/22 Chelsie Kolb, RN Specialty Library Consultant Colon and Rectal Surgery 02/18/23 02/19/28 Universal Grinder Set Up Operator Relationship Specialty Start Date End Date Lorenzo Marin DO PCP - General Family Medicine 04/16/13 Sera Forbes LSW E Commerce Developer 09/26/22 Minerva Anderson MD [address] [facility] [facility] [address] Physician Hematology/Oncology 10/01/22 Dania Key MD [address] [facility] [address] Physician Radiation Oncology 10/01/22 Andree Hollis APRN.CHAINSTITCH ZIPPER SETTER [address] [facility] [place], [place] 05[address]70 Nurse Practitioner Hematology/Oncology 10/01/22 Denisha Duarte, ALEXUS [address] [address] Specialty Library Consultant Hematology/Oncology 10/01/22 Chelsie Kolb, RN Specialty Library Consultant Colon and Rectal Surgery 02/18/23 02/19/28 Universal Grinder Set Up Operator Relationship Specialty Start Date End Date Lorenzo Marin DO PCP - General Family Medicine 04/16/13 Sera Forbes LSW E Commerce Developer 09/26/22 Minerva Anderson MD [address] [facility] [facility] [address] Physician Hematology/Oncology 10/01/22 Dania Key MD [address] [facility] [address] Physician Radiation Oncology 10/01/22 Andree Hollis, COMMUNICATIONS SCIENTIST.CHAINSTITCH ZIPPER SETTER [address] [facility] [facility] [place] [address] Nurse Practitioner Hematology/Oncology 10/01/22 Denisha Duarte, ALEXUS [address] [facility] [place] [address] Specialty Library Consultant Hematology/Oncology 10/01/22 Chelsie Kolb, RN Specialty Library Consultant Colon and Rectal Surgery 02/18/23 02/19/28 Universal Grinder Set Up Operator Relationship Specialty Start Date End Date Lorenzo Marin DO PCP - General Family Medicine 04/16/13 Sera Forbes LSW E Commerce Developer 09/26/22 Minerva Anderson MD [address] [facility] [facility] [address] Physician Hematology/Oncology 10/01/22 Dania Key MD [address] [facility] [place] [address] Physician Radiation Oncology 10/01/22 Andree Hollis, COMMUNICATIONS SCIENTIST.CHAINSTITCH ZIPPER SETTER [address] [facility] [place] [address] Nurse Practitioner Hematology/Oncology 10/01/22 Denisha Duarte, ALEXUS [address] [facility] [place] [address] Specialty Library Consultant Hematology/Oncology 10/01/22 Chelsie Kolb, RN Specialty Library Consultant Colon and Rectal Surgery 02/18/23 02/19/28 Universal Grinder Set Up Operator Relationship Specialty Start Date End Date Lorenzo aMrin DO PCP - General Family Medicine 04/16/13 Sera Forbes LSW E Commerce Developer 09/26/22 Minerva Anderson MD [address] [place] [address] [place] [address] Physician Hematology/Oncology 10/01/22 Dania Key MD [address] [place] [address] [place] [address] Physician Radiation Oncology 10/01/22 Andree Hollis, COMMUNICATIONS SCIENTIST.CHAINSTITCH ZIPPER SETTER [address] [place] [address] [place] [address] Nurse Practitioner Hematology/Oncology 10/01/22 Denisha Duarte, ALEXUS [address] [place] [address] [place] [address] Specialty Library Consultant Hematology/Oncology 10/01/22 Chelsie Kolb RN Specialty Library Consultant Colon and Rectal Surgery 02/18/23 02/19/28 Universal Grinder Set Up Operator Relationship Specialty Start Date End Date Lorenzo Marin DO PCP - General Family Medicine 04/16/13 Sera Forbes LSW E Commerce Developer 09/26/22 Minerva Anderson MD [address] [place] [address] [place] [address] Physician Hematology/Oncology 10/01/22 Dania Key MD [address] [place] [address] [place] [address] Physician Radiation Oncology 10/01/22 Andree Hollis, COMMUNICATIONS SCIENTIST.CHAINSTITCH ZIPPER SETTER [address] [place] [address] [place] [address] Nurse Practitioner Hematology/Oncology 10/01/22 Denisha Duarte, ALEXUS [address] [facility] [address] Specialty Library Consultant Hematology/Oncology 10/01/22 Chelsie Kolb, RN Specialty Library Consultant Colon and Rectal Surgery 02/18/23 02/19/28 Universal Grinder Set Up Operator Relationship Specialty Start Date End Date Lorenzo Marin DO PCP - General Family Medicine 04/16/13 Sera Forbes LSW E Commerce Developer 09/26/22 Minerva Anderson MD [address] [place] [address] [place] [address] Physician Hematology/Oncology 10/01/22 Dania Key MD [address] [place] [address] [place] [address] Physician Radiation Oncology 10/01/22 Andree Hollis APRN.[facility] [address] [place] [address] [place] [address] Nurse Practitioner Hematology/Oncology 10/01/22 Denisha Duarte, ALEXUS [address] [facility] [address] Specialty Library Consultant Hematology/Oncology 10/01/22 Chelsie Kolb, RN Specialty Library Consultant Colon and Rectal Surgery 02/18/23 02/19/28 Universal Grinder Set Up Operator Relationship Specialty Start Date End Date Lorenzo Marin DO PCP - General Family Medicine 04/16/13 Sera Forbes LSW E Commerce Developer 09/26/22 Minerva Anderson MD [address] [place] [address] [place] [address] Physician Hematology/Oncology 10/01/22 Dania Key MD [address] [place] [address] [place] [address] Physician Radiation Oncology 10/01/22 Andree Hollis, COMMUNICATIONS SCIENTIST.CHAINSTITCH ZIPPER SETTER [address] [place] [address] [place] [address] Nurse Practitioner Hematology/Oncology 10/01/22 Denisha Duarte, ALEXUS [address] [place] [address] [place] [address] Specialty Library Consultant Hematology/Oncology 10/01/22 Chelsie Kolb RN Specialty Library Consultant Colon and Rectal Surgery 02/18/23 02/19/28 Universal Grinder Set Up Operator Relationship Specialty Start Date End Date Lorenzo Marin DO PCP - General Family Medicine 04/16/13 Sera Forbes LSW E Commerce Developer 09/26/22 Minerva Anderson MD [address] [place] [address] [place] [address] Physician Hematology/Oncology 10/01/22 Dania Key MD [address] [place] [address] [place] [address] Physician Radiation Oncology 10/01/22 Andree Hollis, COMMUNICATIONS SCIENTIST.CHAINSTITCH ZIPPER SETTER [address] [place] [address] [place] [address] Nurse Practitioner Hematology/Oncology 10/01/22 Denisha Duarte, ALEXUS [address] [place] [address] [place] [address] Specialty Library Consultant Hematology/Oncology 10/01/22 Chelsie Kolb, RN Specialty Library Consultant Colon and Rectal Surgery 02/18/23 02/19/28 Universal Grinder Set Up Operator Relationship Specialty Start Date End Date Lorenzo Marin DO PCP - General Family Medicine 04/16/13 Sera Forbes LSW E Commerce Developer 09/26/22 Minerva Anderson MD [address] [place] [address] [place] [address] Physician Hematology/Oncology 10/01/22 Dania Key MD [address] [place] [address] [place] [address] Physician Radiation Oncology 10/01/22 Andree Hollis APRN.CHAINSTITCH ZIPPER SETTER [address] [facility] [address] Nurse Practitioner Hematology/Oncology 10/01/22 Denisha Duarte, ALEXUS [address] [facility] [address] Specialty Library Consultant Hematology/Oncology 10/01/22 Chelsie Kolb, RN Specialty Library Consultant Colon and Rectal Surgery 02/18/23 02/19/28 Universal Grinder Set Up Operator Relationship Specialty Start Date End Date Lorenzo Marin DO PCP - General Family Medicine 04/16/13 Sera Forbes LSW E Commerce Developer 09/26/22 Minerva Anderson MD [address] [facility] [address] Physician Hematology/Oncology 10/01/22 Dania Key MD [address] [facility] [address] Physician Radiation Oncology 10/01/22 Andree Hollis, AZAEL.CHAINSTITCH ZIPPER SETTER [address] [place] [address] [place] [address] Nurse Practitioner Hematology/Oncology 10/01/22 Denisha Duarte, ALEXSU [address] [facility] [address] Specialty Library Consultant Hematology/Oncology 10/01/22 Chelsie Kolb, RN Specialty Library Consultant Colon and Rectal Surgery 02/18/23 02/19/28 Universal Grinder Set Up Operator Relationship Specialty Start Date End Date Lorenzo Marin DO PCP - General Family Medicine 04/16/13 Sera Forbes LSW E Commerce Developer 09/26/22 Minerva Anderson MD [address] [place] [address] [place] [address] Physician Hematology/Oncology 10/01/22 Dania Key MD [address] [place] [address] [place] [address] Physician Radiation Oncology 10/01/22 Andree Hollis, COMMUNICATIONS SCIENTIST.CHAINSTITCH ZIPPER SETTER [address] [place] [address] [place] [address] Nurse Practitioner Hematology/Oncology 10/01/22 Denisha Duarte, ALEXUS [address] [facility] [address] Specialty Library Consultant Hematology/Oncology 10/01/22 Chelsie Kolb, RN Specialty Library Consultant Colon and Rectal Surgery 02/18/23 02/19/28 Universal Grinder Set Up Operator Relationship Specialty Start Date End Date Lorenzo Marin DO PCP - General Family Medicine 04/16/13 Sera Forbes LSW E Commerce Developer 09/26/22 Minerva Anderson MD [address] [facility] [place] [address] Physician Hematology/Oncology 10/01/22 Dania Key MD [address] [facility] [place] [address] Physician Radiation Oncology 10/01/22 Andree Hollis, COMMUNICATIONS SCIENTIST.CHAINSTITCH ZIPPER SETTER [address] [facility] [place] [address] Nurse Practitioner Hematology/Oncology 10/01/22 Denisha Duarte, ALEXUS [address] [facility] [address] [place], [place] [address] Specialty Library Consultant Hematology/Oncology 10/01/22 Chelsie Kolb, ALEXUS Specialty Library Consultant Colon and Rectal Surgery 02/18/23 02/19/28 Universal Grinder Set Up Operator Relationship Specialty Start Date End Date Lorenzo Marin DO PCP - General Family Medicine 04/16/13 Sera Forbes [facility] E Commerce Developer 09/26/22 Minerva Anderson MD [address] [facility] [place] [address] Physician Hematology/Oncology 10/01/22 Dania Key MD [address] [facility] [place] [address] Physician Radiation Oncology 10/01/22 Andree Hollis, COMMUNICATIONS SCIENTIST.CHAINSTITCH ZIPPER SETTER [address] [facility] [address] Nurse Practitioner Hematology/Oncology 10/01/22 Denisha Duarte, RN [address] [facility] [address] Specialty Library Consultant Hematology/Oncology 10/01/22 Universal Grinder Set Up Operator Relationship Specialty Start Date End Date Lorenzo Marin DO PCP - General Family Medicine 04/16/13 Universal Grinder Set Up Operator Relationship Specialty Start Date End Date Lorenzo Marin DO PCP - General Family Medicine 04/16/13 Universal Grinder Set Up Operator Relationship Specialty Start Date End Date Lorenzo Marin DO PCP - General Family Medicine 04/16/13 Sera Forbes LSW E Commerce Developer 09/26/22 Minerva Anderson MD [address] [place] [address] [place] [address] Physician Hematology/Oncology 10/01/22 Dania Key MD [address] [facility] [address] Physician Radiation Oncology 10/01/22 Andree Hollis, COMMUNICATIONS SCIENTIST.CHAINSTITCH ZIPPER SETTER [address] [facility] [address] Nurse Practitioner Hematology/Oncology 10/01/22 Denisha Duarte, ALEXUS [address] [facility] [address] Specialty Library Consultant Hematology/Oncology 10/01/22 Chelsie Kolb, RN Specialty Library Consultant Colon and Rectal Surgery 02/18/23 02/19/28 Universal Grinder Set Up Operator Relationship Specialty Start Date End Date Lorenzo Marin DO PCP - General Family Medicine 04/16/13 Sera Forbes LSW E Commerce Developer 09/26/22 Minerva Anderson MD [address] [facility] [place] [address] Physician Hematology/Oncology 10/01/22 Dania Key MD [address] [facility] [address] Physician Radiation Oncology 10/01/22 Andree Hollis APRN.CHAINSTITCH ZIPPER SETTER [address] [facility] [address] Nurse Practitioner Hematology/Oncology 10/01/22 Denisha Duarte, ALEXUS [address] [facility] [address] Specialty Library Consultant Hematology/Oncology 10/01/22 Chelsie Kolb, RN Specialty Library Consultant Colon and Rectal Surgery 02/18/23 02/19/28 Universal Grinder Set Up Operator Relationship Specialty Start Date End Date Lorenzo Marin DO PCP - General Family Medicine 04/16/13 Sera Forbes LSW E Commerce Developer 09/26/22 Minerva Anderson MD [address] [facility] [address] Physician Hematology/Oncology 10/01/22 Dania Key MD [address] [facility] [address] Physician Radiation Oncology 10/01/22 Andree Hollis, COMMUNICATIONS SCIENTIST.CHAINSTITCH ZIPPER SETTER [address] [place] [address] [place] [address] Nurse Practitioner Hematology/Oncology 10/01/22 Denisha Duarte, ALEXUS [address] [place] [address] [place] [address] Specialty Library Consultant Hematology/Oncology 10/01/22 08/11/24 Chelsie Kolb, RN Specialty Library Consultant Colon and Rectal Surgery 02/18/23 02/19/28 Universal Grinder Set Up Operator Relationship Specialty Start Date End Date Lorenzo Marin DO PCP - General Family Medicine 04/16/13 Sera Forbes LSW E Commerce Developer 09/26/22 Minerva Anderson MD [address] [place] [address] [place] [address] Physician Hematology/Oncology 10/01/22 Dania Key MD [address] [place] [address] [place] [address] Physician Radiation Oncology 10/01/22 Andree Hollis, COMMUNICATIONS SCIENTIST.CHAINSTITCH ZIPPER SETTER [address] [place] [address] [place] [address] Nurse Practitioner Hematology/Oncology 10/01/22 Chelsie Kolb, RN Specialty Library Consultant Colon and Rectal Surgery 02/18/23 02/19/28 Universal Grinder Set Up Operator Relationship Specialty Start Date End Date Lorenzo Marin DO PCP - General Family Medicine 04/16/13 Sera Forbes LSW E Commerce Developer 09/26/22 Minerva Anderson MD [address] [facility] [address] Physician Hematology/Oncology 10/01/22 Dania Key MD [address] [facility] [address] Physician Radiation Oncology 10/01/22 Andree Hollis, COMMUNICATIONS SCIENTIST.CHAINSTITCH ZIPPER SETTER [address] [facility] [address] Nurse Practitioner Hematology/Oncology 10/01/22 Chelsie Kolb, RN Specialty Library Consultant Colon and Rectal Surgery 02/18/23 02/19/28 Universal Grinder Set Up Operator Relationship Specialty Start Date End Date Lorenzo Marni DO PCP - General Family Medicine 04/16/13 Sera Forbes LSW E Commerce Developer 09/26/22 Minerva Anderson MD [address] [facility] [address] Physician Hematology/Oncology 10/01/22 Dania Key MD [address] [facility] [address] Physician Radiation Oncology 10/01/22 Andree Hollis, COMMUNICATIONS SCIENTIST.CHAINSTITCH ZIPPER SETTER [address] [facility] [address] Nurse Practitioner Hematology/Oncology 10/01/22 Chelsie Kolb, RN Specialty Library Consultant Colon and Rectal Surgery 02/18/23 02/19/28 Universal Grinder Set Up Operator Relationship Specialty Start Date End Date Lorenzo Marin DO PCP - General Family Medicine 04/16/13 Sera Forbes LSW E Commerce Developer 09/26/22 Minerva Anderson MD [address] [place] [address] [place] [address] Physician Hematology/Oncology 10/01/22 Dania Key MD [address] [facility] [address] Physician Radiation Oncology 10/01/22 Andree Hollis, COMMUNICATIONS SCIENTIST.CHAINSTITCH ZIPPER SETTER [address] [place] [address] [place] [address] Nurse Practitioner Hematology/Oncology 10/01/22 Chelsie Kolb, RN Specialty Library Consultant Colon and Rectal Surgery 02/18/23 02/19/28 Universal Grinder Set Up Operator Relationship Specialty Start Date End Date Lorenzo Marin DO PCP - General Family Medicine 04/16/13 Sera Forbes LSW E Commerce Developer 09/26/22 Minerva Anderson MD [address] [place] [address] [place] [address] Physician Hematology/Oncology 10/01/22 Dania Key MD [address] [place] [address] [place] [address] Physician Radiation Oncology 10/01/22 Andree Hollis, AZAEL.CHAINSTITCH ZIPPER SETTER [address] [facility] [address] Nurse Practitioner Hematology/Oncology 10/01/22 Chelsie Kolb, RN Specialty Library Consultant Colon and Rectal Surgery 02/18/23 02/19/28 Universal Grinder Set Up Operator Relationship Specialty Start Date End Date Lorenzo Marin DO PCP - General Family Medicine 04/16/13 Sera Forbes LSW E Commerce Developer 09/26/22 Minerva Anderson MD [address] [facility] [place] [address] Physician Hematology/Oncology 10/01/22 Dania Key MD [address] [facility] [place] [address] Physician Radiation Oncology 10/01/22 Andree Hollis, AZAEL.CHAINSTITCH ZIPPER SETTER [address] [facility] [place] [address] Nurse Practitioner Hematology/Oncology 10/01/22 Chelsie Kolb, ALEXUS Specialty Library Consultant Colon and Rectal Surgery 02/18/23 02/19/28 Universal Grinder Set Up Operator Relationship Specialty Start Date End Date Tomas Lorenzo DaileyDO PCP - General Family Medicine 04/16/13 Sera Forbes VP CLINICAL E Commerce Developer 09/26/22 Minerva Anderson MD [address] [facility] [place] [address] Physician Hematology/Oncology 10/01/22 Dania Key MD [address] [facility] [place] [address] Physician Radiation Oncology 10/01/22 Andree Hollis, AZAEL.CHAINSTITCH ZIPPER SETTER [address] [facility] [place] [address] Nurse Practitioner Hematology/Oncology 10/01/22 Chelsie Kolb, RN Specialty Library Consultant Colon and Rectal Surgery 02/18/23 02/19/28 Universal Grinder Set Up Operator Relationship Specialty Start Date End Date Lorenzo Marin DO PCP - General Family Medicine 04/16/13 Sera Forbes, DAI E Commerce Developer 09/26/22 Minerva Anderson MD [address] [facility] [place] [address] Physician Hematology/Oncology 10/01/22 Dania Key MD [address] [facility] [place] [address] Physician Radiation Oncology 10/01/22 Andree Hollis, COMMUNICATIONS SCIENTIST.CHAINSTITCH ZIPPER SETTER [address] [facility] [address] Nurse Practitioner Hematology/Oncology 10/01/22 Chelsie Kolb, ALEXUS Specialty Library Consultant Colon and Rectal Surgery 02/18/23 02/19/28 Universal Grinder Set Up Operator Relationship Specialty Start Date End Date Lorenzo Marin DO PCP - General Family Medicine 04/16/13 Sera Forbes, VP CLINICAL E Commerce Developer 09/26/22 Minerva Anderson MD [address] [facility] [address] Physician Hematology/Oncology 10/01/22 Dania Key MD [address] [facility] [place] [address] Physician Radiation Oncology 10/01/22 Andree oHllis, AZAEL.CHAINSTITCH ZIPPER SETTER [address] [facility] [place] [address] Nurse Practitioner Hematology/Oncology 10/01/22 Chelsie Kolb, RN Specialty Library Consultant Colon and Rectal Surgery 02/18/23 02/19/28 Universal Grinder Set Up Operator Relationship Specialty Start Date End Date Lorenzo Marin DO PCP - General Family Medicine 04/16/13 Sera Forbes [facility] E Commerce Developer 09/26/22 Minerva Anderson MD [address] [facility] [place] [address] Physician Hematology/Oncology 10/01/22 Dania Key MD [address] [place], [place] [address]RY [facility] [place] [address] Physician Radiation Oncology 10/01/22 Andree Hollis, AZAEL.CHAINSTITCH ZIPPER SETTER [address] [place], [place] [address] [facility] [place] [address] Nurse Practitioner Hematology/Oncology 10/01/22 Chelsie Kolb, RN Specialty Library Consultant Colon and Rectal Surgery 02/18/23 02/19/28 Universal Grinder Set Up Operator Relationship Specialty Start Date End Date Lorenzo Marin DO PCP - General Family Medicine 04/16/13 Sera Forbes [facility] E Commerce Developer 09/26/22 Minerva Anderson MD [address] [facility] [place] [address] Physician Hematology/Oncology 10/01/22 Dania Key MD [address] [facility] [place] [address] Physician Radiation Oncology 10/01/22 Andree Hollis APRN.CHAINSTITCH ZIPPER SETTER [address] [facility] [place] [address] Nurse Practitioner Hematology/Oncology 10/01/22 Chelsie Kolb, RN Specialty Library Consultant Colon and Rectal Surgery 02/18/23 02/19/28 Universal Grinder Set Up Operator Relationship Specialty Start Date End Date Lorenzo Marin DO PCP - General Family Medicine 04/16/13 Sera Forbes, VP CLINICAL E Commerce Developer 09/26/22 Minerva Anderson MD [address] [facility] [place] [address] Physician Hematology/Oncology 10/01/22 Dania Key MD [address] [facility] [place] [address] Physician Radiation Oncology 10/01/22 Andree Hollis, COMMUNICATIONS SCIENTIST.CHAINSTITCH ZIPPER SETTER [address] [facility] [address] Nurse Practitioner Hematology/Oncology 10/01/22 Chelsie Kolb, RN Specialty Library Consultant Colon and Rectal Surgery 02/18/23 02/19/28 Universal Grinder Set Up Operator Relationship Specialty Start Date End Date Lorenzo Marin DO PCP - General Family Medicine 04/16/13 Sera Forbes LSW E Commerce Developer 09/26/22 Minerva Anderson MD [address] [facility] [place] [address] Physician Hematology/Oncology 10/01/22 Dania Key MD [address] [facility] [place] [address] Physician Radiation Oncology 10/01/22 Andree Hollis, COMMUNICATIONS SCIENTIST.CHAINSTITCH ZIPPER SETTER [address] [place] [address] [place] [address] Nurse Practitioner Hematology/Oncology 10/01/22 Chelsie Kolb, RN Specialty Library Consultant Colon and Rectal Surgery 02/18/23 02/19/28 Universal Grinder Set Up Operator Relationship Specialty Start Date End Date Lorenzo Marin DO PCP - General Family Medicine 04/16/13 Sera Forbes LSW E Commerce Developer 09/26/22 Minerva Anderson MD [address] [place] [address] [place] [address] Physician Hematology/Oncology 10/01/22 Dania Key MD [address] [place] [address] [place] [address] Physician Radiation Oncology 10/01/22 Andree Hollis, COMMUNICATIONS SCIENTIST.CHAINSTITCH ZIPPER SETTER [address] [place] [address] [place] [address] Nurse Practitioner Hematology/Oncology 10/01/22 Chelsie Kolb, RN Specialty Library Consultant Colon and Rectal Surgery 02/18/23 02/19/28 Universal Grinder Set Up Operator Relationship Specialty Start Date End Date Lorenzo Marin DO [address] [place] [address] PCP - General Family Medicine 07/10/23 Universal Grinder Set Up Operator Relationship Specialty Start Date End Date Lorenzo Marin MD [address] [place] [address] PCP - General Decoration Checker 05/02/23 Universal Grinder Set Up Operator Relationship Specialty Start Date End Date Lorenzo Marin MD [address] [place] [address] PCP - General Decoration Checker 05/02/23 Universal Grinder Set Up Operator Relationship Specialty Start Date End Date Lorenzo Marin MD [address] [place] [address] PCP - General Decoration Checker 05/02/23 Universal Grinder Set Up Operator Relationship Specialty Start Date End Date Lorenzo Marin DO [address] [place] [address] PCP - General Family Medicine 07/10/23 Universal Grinder Set Up Operator Relationship Specialty Start Date End Date Lorenzo Marin DO PCP - General Family Medicine 04/16/13 Sera Forbes LSW E Commerce Developer 09/26/22 Minerva Anderson MD [address] [facility] [address] Physician Hematology/Oncology 10/01/22 Dania Key MD [address] [facility] [address] Physician Radiation Oncology 10/01/22 Andree Hollis APRN.CHAINSTITCH ZIPPER SETTER [address] [facility] [address] Nurse Practitioner Hematology/Oncology 10/01/22 Chelsie Kolb, RN Specialty Library Consultant Colon and Rectal Surgery 02/18/23 02/19/28 Universal Grinder Set Up Operator Relationship Specialty Start Date End Date Lorenzo Marin DO PCP - General Family Medicine 04/16/13 Sera Forbes LSW E Commerce Developer 09/26/22 Minerva Anderson MD [address] [facility] [address] Physician Hematology/Oncology 10/01/22 Dania Key MD [address] [facility] [address] Physician Radiation Oncology 10/01/22 Andree Hollis, COMMUNICATIONS SCIENTIST.CHAINSTITCH ZIPPER SETTER [address] [facility] [address] Nurse Practitioner Hematology/Oncology 10/01/22 Chelsie Kolb, RN Specialty Library Consultant Colon and Rectal Surgery 02/18/23 02/19/28 Universal Grinder Set Up Operator Relationship Specialty Start Date End Date Lorenzo Marin DO PCP - General Family Medicine 04/16/13 Sera Forbes [facility] E Commerce Developer 09/26/22 Minerva Anderson MD [address] [place] [address] [place] [address] Physician Hematology/Oncology 10/01/22 Dania Key MD [address] [facility] [address] Physician Radiation Oncology 10/01/22 Andree Hollis, COMMUNICATIONS SCIENTIST.CHAINSTITCH ZIPPER SETTER [address] [facility] [address] Nurse Practitioner Hematology/Oncology 10/01/22 Chelsie Kolb, RN Specialty Library Consultant Colon and Rectal Surgery 02/18/23 02/19/28 Universal Grinder Set Up Operator Relationship Specialty Start Date End Date Lorenzo Marin DO PCP - General Family Medicine 04/16/13 Sera Forbes LSW E Commerce Developer 09/26/22 Minerva Anderson MD [address] [facility] [address] Physician Hematology/Oncology 10/01/22 Dania Key MD [address] [facility] [address] Physician Radiation Oncology 10/01/22 Andree Hollis APRN.CHAINSTITCH ZIPPER SETTER [address] [place] [address] [place] [address] Nurse Practitioner Hematology/Oncology 10/01/22 Chelsie Kolb RN Specialty Library Consultant Colon and Rectal Surgery 02/18/23 02/19/28 Universal Grinder Set Up Operator Relationship Specialty Start Date End Date Lorenzo Marin DO PCP - General Family Medicine 04/16/13 Sera Forbes LSW E Commerce Developer 09/26/22 Minerva Anderson MD [address] [place] [address] [place] [address] Physician Hematology/Oncology 10/01/22 Dania Key MD [address] [place] [address] [place] [address] Physician Radiation Oncology 10/01/22 Andree Hollis APRN.CHAINSTITCH ZIPPER SETTER [address] [facility] [address] Nurse Practitioner Hematology/Oncology 10/01/22 Chelsie Kolb RN Specialty Library Consultant Colon and Rectal Surgery 02/18/23 02/19/28 Universal Grinder Set Up Operator Relationship Specialty Start Date End Date Lorenzo Marin DO PCP - General Family Medicine 04/16/13 Sera Forbes LSW E Commerce Developer 09/26/22 Minerva Anderson MD [address] [facility] [place] [address] Physician Hematology/Oncology 10/01/22 Dania Key MD [address] [facility] [place] [address] Physician Radiation Oncology 10/01/22 Andree Hollis APRN.CHAINSTITCH ZIPPER SETTER [address] [facility] [address] Nurse Practitioner Hematology/Oncology 10/01/22 Chelsie Kolb, RN Specialty Library Consultant Colon and Rectal Surgery 02/18/23 02/19/28 Universal Grinder Set Up Operator Relationship Specialty Start Date End Date Lorenzo Marin DO [address] [place] [address] PCP - General Family Medicine 07/10/23 Universal Grinder Set Up Operator Relationship Specialty Start Date End Date Lorenzo Marin DO PCP - General Family Medicine 04/16/13 Sera Forbes LSW E Commerce Developer 09/26/22 Minerva Anderson MD [address] [facility] [address] Physician Hematology/Oncology 10/01/22 Dania Key MD [address] [facility] [place] [address] Physician Radiation Oncology 10/01/22 Andree Hollis, COMMUNICATIONS SCIENTIST.CHAINSTITCH ZIPPER SETTER [address] [facility] [address] Nurse Practitioner Hematology/Oncology 10/01/22 Chelsie Kolb, RN Specialty Library Consultant Colon and Rectal Surgery 02/18/23 02/19/28 Universal Grinder Set Up Operator Relationship Specialty Start Date End Date Lorenzo Marin DO PCP - General Family Medicine 04/16/13 Sera Forbes LSW E Commerce Developer 09/26/22 Minerva Anderson MD [address] [facility] [address] Physician Hematology/Oncology 10/01/22 Dania Key MD [address] [facility] [address] Physician Radiation Oncology 10/01/22 Andree Hollis, COMMUNICATIONS SCIENTIST.CHAINSTITCH ZIPPER SETTER [address] [facility] [address] Nurse Practitioner Hematology/Oncology 10/01/22 Chelsie Kolb, RN Specialty Library Consultant Colon and Rectal Surgery 02/18/23 02/19/28 Universal Grinder Set Up Operator Relationship Specialty Start Date End Date Lorenzo Marin DO PCP - General Family Medicine 04/16/13 Sera Forbes LSW E Commerce Developer 09/26/22 Minerva Anderson MD [address] [facility] [address] Physician Hematology/Oncology 10/01/22 Dania Key MD [address] [facility] [address] Physician Radiation Oncology 10/01/22 Andree Hollis APRN.CHAINSTITCH ZIPPER SETTER [address] [facility] [address] Nurse Practitioner Hematology/Oncology 10/01/22 Chelsie Kolb, RN Specialty Library Consultant Colon and Rectal Surgery 02/18/23 02/19/28 Universal Grinder Set Up Operator Relationship Specialty Start Date End Date Lorenzo Marin DO PCP - General Family Medicine 04/16/13 Sera Forbes LSW E Commerce Developer 09/26/22 Minerva Anderson MD [address] [address] Physician Hematology/Oncology 10/01/22 Dania Key MD [address] [address] Physician Radiation Oncology 10/01/22 Andree Hollis, AZAEL.CHAINSTITCH ZIPPER SETTER [address] [address] Nurse Practitioner Hematology/Oncology 10/01/22 Chelsie Kolb, ALEXUS Specialty Library Consultant Colon and Rectal Surgery 02/18/23 02/19/28 Team Status: Inactive Member Role Status Dates Lorenzo Marin DO Primary Care Provider Active Start: March 18, 2025 End: March 18, 2025 Adam Patel MD Attending Provider Active S tart: March 18, 2025 End: March 18, 2025 Universal Grinder Set Up Operator Relationship Specialty Start Date End Date Lorenzo Marin DO PCP - General Family Medicine 04/16/13 Sera Forbes LSW E Commerce Developer 09/26/22 Minerva Anderson MD [address] [place] [address] [place] [address] Physician Hematology/Oncology 10/01/22 Dania Key MD [address] [address] Physician Radiation Oncology 10/01/22 Andree Hollis, COMMUNICATIONS SCIENTIST.CHAINSTITCH ZIPPER SETTER [address] [place] [address] [place] [address] Nurse Practitioner Hematology/Oncology 10/01/22 Chelsie Kolb, ALEXUS Specialty Library Consultant Colon and Rectal Surgery 02/18/23 02/19/28 Universal Grinder Set Up Operator Relationship Specialty Start Date End Date Lorenzo Marin MD [address] [place] [address] PCP - General Decoration Checker 05/02/23 Universal Grinder Set Up Operator Relationship Specialty Start Date End Date Lorenzo Marin MD [address] [place] [address] PCP - General Decoration Checker 05/02/23 Universal Grinder Set Up Operator Relationship Specialty Start Date End Date Lorenzo Marin DO PCP - General Family Medicine 04/16/13 Sera Forbes LSW E Commerce Developer 09/26/22 Dania Key MD [address] [place] [address] [place] [address] Physician Radiation Oncology 10/01/22 Andree Hollis, COMMUNICATIONS SCIENTIST.CHAINSTITCH ZIPPER SETTER [address] [place] [address] [place] [address] Nurse Practitioner Hematology/Oncology 10/01/22 Chelsie Kolb, RN Specialty Library Consultant Colon and Rectal Surgery 02/18/23 02/19/28 Source Comments (unrecognize d section and content) In the event this informatio n is protected by the Federal Confidentiality of Alcohol and Drug Abuse Patient Records regulations: The Federal rules restrict any use of the information to criminally investigate or prosecute any alcohol or drug abuse patient.[facility] the event this information is protected by the Federal Confidentiality of Alcohol and Drug Abuse Patient Records regulations: The Federal rules restrict any use of the information to criminally investigate or prosecute any alcohol or drug abuse patient.[facility]In the event this information is protected by the Federal Confidentiality of Alcohol and Drug Abuse Patient Records regulations: The Federal rules restrict any use of the information to criminally investigate or prosecute any alcohol or drug abuse patient.[facility]In the event this information is protected by the Federal Confidentiality of Alcohol and Drug Abuse Patient Records regulations: The Federal rules restrict any use of the information to criminally investigate or prosecute any alcohol or drug abuse patient.[facility]In the event this information is protected by the Federal Confidentiality of Alcohol and Drug Abuse Patient Records regulations: The Federal rules restrict any use of the information to criminally investigate or prosecute any alcohol or drug abuse patient.[facility] HospitalIn the event this information is protected by the Federal Confidentiality of Alcohol and Drug Abuse Patient Records regulations: The Federal rules restrict any use of the information to criminally investigate or prosecute any alcohol or drug abuse patient.[facility] HospitalIn the event this information is protected by the Federal Confidentiality of Alcohol and Drug Abuse Patient Records regulations: The Federal rules restrict any use of the information to criminally investigate or prosecute any alcohol or drug abuse patient.[facility] HospitalIn the event this information is protected by the Federal Confidentiality of Alcohol and Drug Abuse Patient Records regulations: The Federal rules restrict any use of the information to criminally investigate or prosecute any alcohol or drug abuse patient.[facility]In the event this information is protected by the Federal Confidentiality of Alcohol and Drug Abuse Patient Records regulations: The Federal rules restrict any use of the information to criminally investigate or prosecute any alcohol or drug abuse patient.[facility] HospitalIn the event this information is protected by the Federal Confidentiality of Alcohol and Drug Abuse Patient Records regulations: The Federal rules restrict any use of the information to criminally investigate or prosecute any alcohol or drug abuse patient.[facility] HospitalIn the event this information is protected by the Federal Confidentiality of Alcohol and Drug Abuse Patient Records regulations: The Federal rules restrict any use of the information to criminally investigate or prosecute any alcohol or drug abuse patient.[facility] HospitalIn the event this information is protected by the Federal Confidentiality of Alcohol and Drug Abuse Patient Records regulations: The Federal rules restrict any use of the information to criminally investigate or prosecute any alcohol or drug abuse patient.[facility] HospitalIn the event this information is protected by the Federal Confidentiality of Alcohol and Drug Abuse Patient Records regulations: The Federal rules restrict any use of the information to criminally investigate or prosecute any alcohol or drug abuse patient.[facility] HospitalIn the event this information is protected by the Federal Confidentiality of Alcohol and Drug Abuse Patient Records regulations: The Federal rules restrict any use of the information to criminally investigate or prosecute any alcohol or drug abuse patient.[facility] HospitalIn the event this information is protected by the Federal Confidentiality of Alcohol and Drug Abuse Patient Records regulations: The Federal rules restrict any use of the information to criminally investigate or prosecute any alcohol or drug abuse patient.[facility] HospitalIn the event this information is protected by the Federal Confidentiality of Alcohol and Drug Abuse Patient Records regulations: The Federal rules restrict any use of the information to criminally investigate or prosecute any alcohol or drug abuse patient.[facility] HospitalIn the event this information is protected by the Federal Confidentiality of Alcohol and Drug Abuse Patient Records regulations: The Federal rules restrict any use of the information to criminally investigate or prosecute any alcohol or drug abuse patient.[facility] HospitalIn the event this information is protected by the Federal Confidentiality of Alcohol and Drug Abuse Patient Records regulations: The Federal rules restrict any use of the information to criminally investigate or prosecute any alcohol or drug abuse patient.[facility] HospitalIn the event this information is protected by the Federal Confidentiality of Alcohol and Drug Abuse Patient Records regulations: The Federal rules restrict any use of the information to criminally investigate or prosecute any alcohol or drug abuse patient.[facility] HospitalIn the event this information is protected by the Federal Confidentiality of Alcohol and Drug Abuse Patient Records regulations: The Federal rules restrict any use of the information to criminally investigate or prosecute any alcohol or drug abuse patient.[facility] HospitalIn the event this information is protected by the Federal Confidentiality of Alcohol and Drug Abuse Patient Records regulations: The Federal rules restrict any use of the information to criminally investigate or prosecute any alcohol or drug abuse patient.[facility] HospitalIn the event this information is protected by the Federal Confidentiality of Alcohol and Drug Abuse Patient Records regulations: The Federal rules restrict any use of the information to criminally investigate or prosecute any alcohol or drug abuse patient.[facility] HospitalIn the event this information is protected by the Federal Confidentiality of Alcohol and Drug Abuse Patient Records regulations: The Federal rules restrict any use of the information to criminally investigate or prosecute any alcohol or drug abuse patient.[facility] HospitalIn the event this information is protected by the Federal Confidentiality of Alcohol and Drug Abuse Patient Records regulations: The Federal rules restrict any use of the information to criminally investigate or prosecute any alcohol or drug abuse patient.[facility]In the event this information is protected by the Federal Confidentiality of Alcohol and Drug Abuse Patient Records regulations: The Federal rules restrict any use of the information to criminally investigate or prosecute any alcohol or drug abuse patient.[facility] HospitalIn the event this information is protected by the Federal Confidentiality of Alcohol and Drug Abuse Patient Records regulations: The Federal rules restrict any use of the information to criminally investigate or prosecute any alcohol or drug abuse patient.[facility] HospitalIn the event this information is protected by the Federal Confidentiality of Alcohol and Drug Abuse Patient Records regulations: The Federal rules restrict any use of the information to criminally investigate or prosecute any alcohol or drug abuse patient.[facility] HospitalIn the event this information is protected by the Federal Confidentiality of Alcohol and Drug Abuse Patient Records regulations: The Federal rules restrict any use of the information to criminally investigate or prosecute any alcohol or drug abuse patient.[facility] HospitalIn the event this information is protected by the Federal Confidentiality of Alcohol and Drug Abuse Patient Records regulations: The Federal rules restrict any use of the information to criminally investigate or prosecute any alcohol or drug abuse patient.[facility] HospitalIn the event this information is protected by the Federal Confidentiality of Alcohol and Drug Abuse Patient Records regulations: The Federal rules restrict any use of the information to criminally investigate or prosecute any alcohol or drug abuse patient.[facility] HospitalIn the event this information is protected by the Federal Confidentiality of Alcohol and Drug Abuse Patient Records regulations: The Federal rules restrict any use of the information to criminally investigate or prosecute any alcohol or drug abuse patient.[facility] HospitalIn the event this information is protected by the Federal Confidentiality of Alcohol and Drug Abuse Patient Records regulations: The Federal rules restrict any use of the information to criminally investigate or prosecute any alcohol or drug abuse patient.[facility] HospitalIn the event this information is protected by the Federal Confidentiality of Alcohol and Drug Abuse Patient Records regulations: The Federal rules restrict any use of the information to criminally investigate or prosecute any alcohol or drug abuse patient.[facility] HospitalIn the event this information is protected by the Federal Confidentiality of Alcohol and Drug Abuse Patient Records regulations: The Federal rules restrict any use of the information to criminally investigate or prosecute any alcohol or drug abuse patient.[facility] HospitalIn the event this information is protected by the Federal Confidentiality of Alcohol and Drug Abuse Patient Records regulations: The Federal rules restrict any use of the information to criminally investigate or prosecute any alcohol or drug abuse patient.[facility] HospitalIn the event this information is protected by the Federal Confidentiality of Alcohol and Drug Abuse Patient Records regulations: The Federal rules restrict any use of the information to criminally investigate or prosecute any alcohol or drug abuse patient.[facility]In the event this information is protected by the Federal Confidentiality of Alcohol and Drug Abuse Patient Records regulations: The Federal rules restrict any use of the information to criminally investigate or prosecute any alcohol or drug abuse patient.[facility] HospitalIn the event this information is protected by the Federal Confidentiality of Alcohol and Drug Abuse Patient Records regulations: The Federal rules restrict any use of the information to criminally investigate or prosecute any alcohol or drug abuse patient.[facility] HospitalIn the event this information is protected by the Federal Confidentiality of Alcohol and Drug Abuse Patient Records regulations: The Federal rules restrict any use of the information to criminally investigate or prosecute any alcohol or drug abuse patient.[facility]In the event this information is protected by the Federal Confidentiality of Alcohol and Drug Abuse Patient Records regulations: The Federal rules restrict any use of the information to criminally investigate or prosecute any alcohol or drug abuse patient.[facility] HospitalIn the event this information is protected by the Federal Confidentiality of Alcohol and Drug Abuse Patient Records regulations: The Federal rules restrict any use of the information to criminally investigate or prosecute any alcohol or drug abuse patient.[facility] HospitalIn the event this information is protected by the Federal Confidentiality of Alcohol and Drug Abuse Patient Records regulations: The Federal rules restrict any use of the information to criminally investigate or prosecute any alcohol or drug abuse patient.[facility] HospitalIn the event this information is protected by the Federal Confidentiality of Alcohol and Drug Abuse Patient Records regulations: The Federal rules restrict any use of the information to criminally investigate or prosecute any alcohol or drug abuse patient.[facility] HospitalIn the event this information is protected by the Federal Confidentiality of Alcohol and Drug Abuse Patient Records regulations: The Federal rules restrict any use of the information to criminally investigate or prosecute any alcohol or drug abuse patient.[facility] HospitalIn the event this information is protected by the Federal Confidentiality of Alcohol and Drug Abuse Patient Records regulations: The Federal rules restrict any use of the information to criminally investigate or prosecute any alcohol or drug abuse patient.[facility] HospitalIn the event this information is protected by the Federal Confidentiality of Alcohol and Drug Abuse Patient Records regulations: The Federal rules restrict any use of the information to criminally investigate or prosecute any alcohol or drug abuse patient.[facility] HospitalIn the event this information is protected by the Federal Confidentiality of Alcohol and Drug Abuse Patient Records regulations: The Federal rules restrict any use of the information to criminally investigate or prosecute any alcohol or drug abuse patient.[facility] HospitalIn the event this information is protected by the Federal Confidentiality of Alcohol and Drug Abuse Patient Records regulations: The Federal rules restrict any use of the information to criminally investigate or prosecute any alcohol or drug abuse patient.[facility] HospitalIn the event this information is protected by the Federal Confidentiality of Alcohol and Drug Abuse Patient Records regulations: The Federal rules restrict any use of the information to criminally investigate or prosecute any alcohol or drug abuse patient.[facility] HospitalIn the event this information is protected by the Federal Confidentiality of Alcohol and Drug Abuse Patient Records regulations: The Federal rules restrict any use of the information to criminally investigate or prosecute any alcohol or drug abuse patient.[facility] HospitalIn the event this information is protected by the Federal Confidentiality of Alcohol and Drug Abuse Patient Records regulations: The Federal rules restrict any use of the information to criminally investigate or prosecute any alcohol or drug abuse patient.[facility] HospitalIn the event this information is protected by the Federal Confidentiality of Alcohol and Drug Abuse Patient Records regulations: The Federal rules restrict any use of the information to criminally investigate or prosecute any alcohol or drug abuse patient.[facility] HospitalIn the event this information is protected by the Federal Confidentiality of Alcohol and Drug Abuse Patient Records regulations: The Federal rules restrict any use of the information to criminally investigate or prosecute any alcohol or drug abuse patient.[facility] HospitalIn the event this information is protected by the Federal Confidentiality of Alcohol and Drug Abuse Patient Records regulations: The Federal rules restrict any use of the information to criminally investigate or prosecute any alcohol or drug abuse patient.[facility] HospitalIn the event this information is protected by the Federal Confidentiality of Alcohol and Drug Abuse Patient Records regulations: The Federal rules restrict any use of the information to criminally investigate or prosecute any alcohol or drug abuse patient.[facility] HospitalIn the event this information is protected by the Federal Confidentiality of Alcohol and Drug Abuse Patient Records regulations: The Federal rules restrict any use of the information to criminally investigate or prosecute any alcohol or drug abuse patient.[facility] HospitalIn the event this information is protected by the Federal Confidentiality of Alcohol and Drug Abuse Patient Records regulations: The Federal rules restrict any use of the information to criminally investigate or prosecute any alcohol or drug abuse patient.[facility]In the event this information is protected by the Federal Confidentiality of Alcohol and Drug Abuse Patient Records regulations: The Federal rules restrict any use of the information to criminally investigate or prosecute any alcohol or drug abuse patient.[facility]In the event this information is protected by the Federal Confidentiality of Alcohol and Drug Abuse Patient Records regulations: The Federal rules restrict any use of the information to criminally investigate or prosecute any alcohol or drug abuse patient.[facility]In the event this information is protected by the Federal Confidentiality of Alcohol and Drug Abuse Patient Records regulations: The Federal rules restrict any use of the information to criminally investigate or prosecute any alcohol or drug abuse patient.[facility] HospitalIn the event this information is protected by the Federal Confidentiality of Alcohol and Drug Abuse Patient Records regulations: The Federal rules restrict any use of the information to criminally investigate or prosecute any alcohol or drug abuse patient.[facility]In the event this information is protected by the Federal Confidentiality of Alcohol and Drug Abuse Patient Records regulations: The Federal rules restrict any use of the information to criminally investigate or prosecute any alcohol or drug abuse patient.[facility]In the event this information is protected by the Federal Confidentiality of Alcohol and Drug Abuse Patient Records regulations: The Federal rules restrict any use of the information to criminally investigate or prosecute any alcohol or drug abuse patient.[facility]In the event this information is protected by the Federal Confidentiality of Alcohol and Drug Abuse Patient Records regulations: The Federal rules restrict any use of the information to criminally investigate or prosecute any alcohol or drug abuse patient.[facility] HospitalIn the event this information is protected by the Federal Confidentiality of Alcohol and Drug Abuse Patient Records regulations: The Federal rules restrict any use of the information to criminally investigate or prosecute any alcohol or drug abuse patient.[facility] HospitalIn the event this information is protected by the Federal Confidentiality of Alcohol and Drug Abuse Patient Records regulations: The Federal rules restrict any use of the information to criminally investigate or prosecute any alcohol or drug abuse patient.[facility] HospitalIn the event this information is protected by the Federal Confidentiality of Alcohol and Drug Abuse Patient Records regulations: The Federal rules restrict any use of the information to criminally investigate or prosecute any alcohol or drug abuse patient.[facility] HospitalIn the event this information is protected by the Federal Confidentiality of Alcohol and Drug Abuse Patient Records regulations: The Federal rules restrict any use of the information to criminally investigate or prosecute any alcohol or drug abuse patient.[facility] HospitalIn the event this information is protected by the Federal Confidentiality of Alcohol and Drug Abuse Patient Records regulations: The Federal rules restrict any use of the information to criminally investigate or prosecute any alcohol or drug abuse patient.[facility] HospitalIn the event this information is protected by the Federal Confidentiality of Alcohol and Drug Abuse Patient Records regulations: The Federal rules restrict any use of the information to criminally investigate or prosecute any alcohol or drug abuse patient.[facility] HospitalIn the event this information is protected by the Federal Confidentiality of Alcohol and Drug Abuse Patient Records regulations: The Federal rules restrict any use of the information to criminally investigate or prosecute any alcohol or drug abuse patient.[facility] HospitalIn the event this information is protected by the Federal Confidentiality of Alcohol and Drug Abuse Patient Records regulations: The Federal rules restrict any use of the information to criminally investigate or prosecute any alcohol or drug abuse patient.[facility] HospitalIn the event this information is protected by the Federal Confidentiality of Alcohol and Drug Abuse Patient Records regulations: The Federal rules restrict any use of the information to criminally investigate or prosecute any alcohol or drug abuse patient.[facility]In the event this information is protected by the Federal Confidentiality of Alcohol and Drug Abuse Patient Records regulations: The Federal rules restrict any use of the information to criminally investigate or prosecute any alcohol or drug abuse patient.[facility]In the event this information is protected by the Federal Confidentiality of Alcohol and Drug Abuse Patient Records regulations: The Federal rules restrict any use of the information to criminally investigate or prosecute any alcohol or drug abuse patient.[facility] HospitalIn the event this information is protected by the Federal Confidentiality of Alcohol and Drug Abuse Patient Records regulations: The Federal rules restrict any use of the information to criminally investigate or prosecute any alcohol or drug abuse patient.[facility] HospitalIn the event this information is protected by the Federal Confidentiality of Alcohol and Drug Abuse Patient Records regulations: The Federal rules restrict any use of the information to criminally investigate or prosecute any alcohol or drug abuse patient.[facility] the event this information is protected by the Federal Confidentiality of Alcohol and Drug Abuse Patient Records regulations: The Federal rules restrict any use of the information to criminally investigate or prosecute any alcohol or drug abuse patient.[facility]In the event this information is protected by the Federal Confidentiality of Alcohol and Drug Abuse Patient Records regulations: The Federal rules restrict any use of the information to criminally investigate or prosecute any alcohol or drug abuse patient.[facility]In the event this information is protected by the Federal Confidentiality of Alcohol and Drug Abuse Patient Records regulations: The Federal rules restrict any use of the information to criminally investigate or prosecute any alcohol or drug abuse patient.[facility]In the event this information is protected by the Federal Confidentiality of Alcohol and Drug Abuse Patient Records regulations: The Federal rules restrict any use of the information to criminally investigate or prosecute any alcohol or drug abuse patient.[facility]In the event this information is protected by the Federal Confidentiality of Alcohol and Drug Abuse Patient Records regulations: The Federal rules restrict any use of the information to criminally investigate or prosecute any alcohol or drug abuse patient.[facility]In the event this information is protected by the Federal Confidentiality of Alcohol and Drug Abuse Patient Records regulations: The Federal rules restrict any use of the information to criminally investigate or prosecute any alcohol or drug abuse patient.[facility]In the event this information is protected by the Federal Confidentiality of Alcohol and Drug Abuse Patient Records regulations: The Federal rules restrict any use of the information to criminally investigate or prosecute any alcohol or drug abuse patient.[facility]In the event this information is protected by the Federal Confidentiality of Alcohol and Drug Abuse Patient Records regulations: The Federal rules restrict any use of the information to criminally investigate or prosecute any alcohol or drug abuse patient.[facility]In the event this information is protected by the Federal Confidentiality of Alcohol and Drug Abuse Patient Records regulations: The Federal rules restrict any use of the information to criminally investigate or prosecute any alcohol or drug abuse patient.[facility]In the event this information is protected by the Federal Confidentiality of Alcohol and Drug Abuse Patient Records regulations: The Federal rules restrict any use of the information to criminally investigate or prosecute any alcohol or drug abuse patient.[facility]In the event this information is protected by the Federal Confidentiality of Alcohol and Drug Abuse Patient Records regulations: The Federal rules restrict any use of the information to criminally investigate or prosecute any alcohol or drug abuse patient.[facility]In the event this information is protected by the Federal Confidentiality of Alcohol and Drug Abuse Patient Records regulations: The Federal rules restrict any use of the information to criminally investigate or prosecute any alcohol or drug abuse patient.[facility]In the event this information is protected by the Federal Confidentiality of Alcohol and Drug Abuse Patient Records regulations: The Federal rules restrict any use of the information to criminally investigate or prosecute any alcohol or drug abuse patient.[facility]In the event this information is protected by the Federal Confidentiality of Alcohol and Drug Abuse Patient Records regulations: The Federal rules restrict any use of the information to criminally investigate or prosecute any alcohol or drug abuse patient.[facility]In the event this information is protected by the Federal Confidentiality of Alcohol and Drug Abuse Patient Records regulations: The Federal rules restrict any use of the information to criminally investigate or prosecute any alcohol or drug abuse patient.[facility]In the event this information is protected by the Federal Confidentiality of Alcohol and Drug Abuse Patient Records regulations: The Federal rules restrict any use of the information to criminally investigate or prosecute any alcohol or drug abuse patient.[facility]In the event this information is protected by the Federal Confidentiality of Alcohol and Drug Abuse Patient Records regulations: The Federal rules restrict any use of the information to criminally investigate or prosecute any alcohol or drug abuse patient.[facility]In the event this information is protected by the Federal Confidentiality of Alcohol and Drug Abuse Patient Records regulations: The Federal rules restrict any use of the information to criminally investigate or prosecute any alcohol or drug abuse patient.[facility]In the event this information is protected by the Federal Confidentiality of Alcohol and Drug Abuse Patient Records regulations: The Federal rules restrict any use of the information to criminally investigate or prosecute any alcohol or drug abuse patient.[facility]In the event this information is protected by the Federal Confidentiality of Alcohol and Drug Abuse Patient Records regulations: The Federal rules restrict any use of the information to criminally investigate or prosecute any alcohol or drug abuse patient.[facility]In the event this information is protected by the Federal Confidentiality of Alcohol and Drug Abuse Patient Records regulations: The Federal rules restrict any use of the information to criminally investigate or prosecute any alcohol or drug abuse patient.[facility]In the event this information is protected by the Federal Confidentiality of Alcohol and Drug Abuse Patient Records regulations: The Federal rules restrict any use of the information to criminally investigate or prosecute any alcohol or drug abuse patient.[facility]In the event this information is protected by the Federal Confidentiality of Alcohol and Drug Abuse Patient Records regulations: The Federal rules restrict any use of the information to criminally investigate or prosecute any alcohol or drug abuse patient.[facility]In the event this information is protected by the Federal Confidentiality of Alcohol and Drug Abuse Patient Records regulations: The Federal rules restrict any use of the information to criminally investigate or prosecute any alcohol or drug abuse patient.[facility]In the event this information is protected by the Federal Confidentiality of Alcohol and Drug Abuse Patient Records regulations: The Federal rules restrict any use of the information to criminally investigate or prosecute any alcohol or drug abuse patient.[facility]In the event this information is protected by the Federal Confidentiality of Alcohol and Drug Abuse Patient Records regulations: The Federal rules restrict any use of the information to criminally investigate or prosecute any alcohol or drug abuse patient.[facility]In the event this information is protected by the Federal Confidentiality of Alcohol and Drug Abuse Patient Records regulations: The Federal rules restrict any use of the information to criminally investigate or prosecute any alcohol or drug abuse patient.[facility]In the event this information is protected by the Federal Confidentiality of Alcohol and Drug Abuse Patient Records regulations: The Federal rules restrict any use of the information to criminally investigate or prosecute any alcohol or drug abuse patient.[facility]In the event this information is protected by the Federal Confidentiality of Alcohol and Drug Abuse Patient Records regulations: The Federal rules restrict any use of the information to criminally investigate or prosecute any alcohol or drug abuse patient.[facility]In the event this information is protected by the Federal Confidentiality of Alcohol and Drug Abuse Patient Records regulations: The Federal rules restrict any use of the information to criminally investigate or prosecute any alcohol or drug abuse patient.[facility]In the event this information is protected by the Federal Confidentiality of Alcohol and Drug Abuse Patient Records regulations: The Federal rules restrict any use of the information to criminally investigate or prosecute any alcohol or drug abuse patient.[facility]In the event this information is protected by the Federal Confidentiality of Alcohol and Drug Abuse Patient Records regulations: The Federal rules restrict any use of the information to criminally investigate or prosecute any alcohol or drug abuse patient.[facility]In the event this information is protected by the Federal Confidentiality of Alcohol and Drug Abuse Patient Records regulations: The Federal rules restrict any use of the information to criminally investigate or prosecute any alcohol or drug abuse patient.[facility]In the event this information is protected by the Federal Confidentiality of Alcohol and Drug Abuse Patient Records regulations: The Federal rules restrict any use of the information to criminally investigate or prosecute any alcohol or drug abuse patient.[facility]In the event this information is protected by the Federal Confidentiality of Alcohol and Drug Abuse Patient Records regulations: The Federal rules restrict any use of the information to criminally investigate or prosecute any alcohol or drug abuse patient.[facility]In the event this information is protected by the Federal Confidentiality of Alcohol and Drug Abuse Patient Records regulations: The Federal rules restrict any use of the information to criminally investigate or prosecute any alcohol or drug abuse patient.[facility]In the event this information is protected by the Federal Confidentiality of Alcohol and Drug Abuse Patient Records regulations: The Federal rules restrict any use of the information to criminally investigate or prosecute any alcohol or drug abuse patient.[facility]In the event this information is protected by the Federal Confidentiality of Alcohol and Drug Abuse Patient Records regulations: The Federal rules restrict any use of the information to criminally investigate or prosecute any alcohol or drug abuse patient.[facility]In the event this information is protected by the Federal Confidentiality of Alcohol and Drug Abuse Patient Records regulations: The Federal rules restrict any use of the information to criminally investigate or prosecute any alcohol or drug abuse patient.[facility]In the event this information is protected by the Federal Confidentiality of Alcohol and Drug Abuse Patient Records regulations: The Federal rules restrict any use of the information to criminally investigate or prosecute any alcohol or drug abuse patient.[facility]In the event this information is protected by the Federal Confidentiality of Alcohol and Drug Abuse Patient Records regulations: The Federal rules restrict any use of the information to criminally investigate or prosecute any alcohol or drug abuse patient.[facility]In the event this information is protected by the Federal Confidentiality of Alcohol and Drug Abuse Patient Records regulations: The Federal rules restrict any use of the information to criminally investigate or prosecute any alcohol or drug abuse patient.[facility]In the event this information is protected by the Federal Confidentiality of Alcohol and Drug Abuse Patient Records regulations: The Federal rules restrict any use of the information to criminally investigate or prosecute any alcohol or drug abuse patient.[facility]In the event this information is protected by the Federal Confidentiality of Alcohol and Drug Abuse Patient Records regulations: The Federal rules restrict any use of the information to criminally investigate or prosecute any alcohol or drug abuse patient.[facility]In the event this information is protected by the Federal Confidentiality of Alcohol and Drug Abuse Patient Records regulations: The Federal rules restrict any use of the information to criminally investigate or prosecute any alcohol or drug abuse patient.[facility]In the event this information is protected by the Federal Confidentiality of Alcohol and Drug Abuse Patient Records regulations: The Federal rules restrict any use of the information to criminally investigate or prosecute any alcohol or drug abuse patient.[facility]In the event this information is protected by the Federal Confidentiality of Alcohol and Drug Abuse Patient Records regulations: The Federal rules restrict any use of the information to criminally investigate or prosecute any alcohol or drug abuse patient.[facility]In the event this information is protected by the Federal Confidentiality of Alcohol and Drug Abuse Patient Records regulations: The Federal rules restrict any use of the information to criminally investigate or prosecute any alcohol or drug abuse patient.[facility]In the event this information is protected by the Federal Confidentiality of Alcohol and Drug Abuse Patient Records regulations: The Federal rules restrict any use of the information to criminally investigate or prosecute any alcohol or drug abuse patient.[facility]In the event this information is protected by the Federal Confidentiality of Alcohol and Drug Abuse Patient Records regulations: The Federal rules restrict any use of the information to criminally investigate or prosecute any alcohol or drug abuse patient.[facility]In the event this information is protected by the Federal Confidentiality of Alcohol and Drug Abuse Patient Records regulations: The Federal rules restrict any use of the information to criminally investigate or prosecute any alcohol or drug abuse patient.[facility]In the event this information is protected by the Federal Confidentiality of Alcohol and Drug Abuse Patient Records regulations: The Federal rules restrict any use of the information to criminally investigate or prosecute any alcohol or drug abuse patient.[facility]In the event this information is protected by the Federal Confidentiality of Alcohol and Drug Abuse Patient Records regulations: The Federal rules restrict any use of the information to criminally investigate or prosecute any alcohol or drug abuse patient.[facility]In the event this information is protected by the Federal Confidentiality of Alcohol and Drug Abuse Patient Records regulations: The Federal rules restrict any use of the information to criminally investigate or prosecute any alcohol or drug abuse patient.[facility]In the event this information is protected by the Federal Confidentiality of Alcohol and Drug Abuse Patient Records regulations: The Federal rules restrict any use of the information to criminally investigate or prosecute any alcohol or drug abuse patient.[facility]In the event this information is protected by the Federal Confidentiality of Alcohol and Drug Abuse Patient Records regulations: The Federal rules restrict any use of the information to criminally investigate or prosecute any alcohol or drug abuse patient.[facility]In the event this information is protected by the Federal Confidentiality of Alcohol and Drug Abuse Patient Records regulations: The Federal rules restrict any use of the information to criminally investigate or prosecute any alcohol or drug abuse patient.[facility]In the event this information is protected by the Federal Confidentiality of Alcohol and Drug Abuse Patient Records regulations: The Federal rules restrict any use of the information to criminally investigate or prosecute any alcohol or drug abuse patient.[facility]In the event this information is protected by the Federal Confidentiality of Alcohol and Drug Abuse Patient Records regulations: The Federal rules restrict any use of the information to criminally investigate or prosecute any alcohol or drug abuse patient.[facility]In the event this information is protected by the Federal Confidentiality of Alcohol and Drug Abuse Patient Records regulations: The Federal rules restrict any use of the information to criminally investigate or prosecute any alcohol or drug abuse patient.[facility]In the event this information is protected by the Federal Confidentiality of Alcohol and Drug Abuse Patient Records regulations: The Federal rules restrict any use of the information to criminally investigate or prosecute any alcohol or drug abuse patient.[facility]In the event this information is protected by the Federal Confidentiality of Alcohol and Drug Abuse Patient Records regulations: The Federal rules restrict any use of the information to criminally investigate or prosecute any alcohol or drug abuse patient.[facility]In the event this information is protected by the Federal Confidentiality of Alcohol and Drug Abuse Patient Records regulations: The Federal rules restrict any use of the information to criminally investigate or prosecute any alcohol or drug abuse patient.[facility]In the event this information is protected by the Federal Confidentiality of Alcohol and Drug Abuse Patient Records regulations: The Federal rules restrict any use of the information to criminally investigate or prosecute any alcohol or drug abuse patient.[facility]In the event this information is protected by the Federal Confidentiality of Alcohol and Drug Abuse Patient Records regulations: The Federal rules restrict any use of the information to criminally investigate or prosecute any alcohol or drug abuse patient.[facility]In the event this information is protected by the Federal Confidentiality of Alcohol and Drug Abuse Patient Records regulations: The Federal rules restrict any use of the information to criminally investigate or prosecute any alcohol or drug abuse patient.[facility]In the event this information is protected by the Federal Confidentiality of Alcohol and Drug Abuse Patient Records regulations: The Federal rules restrict any use of the information to criminally investigate or prosecute any alcohol or drug abuse patient.[facility]In the event this information is protected by the Federal Confidentiality of Alcohol and Drug Abuse Patient Records regulations: The Federal rules restrict any use of the information to criminally investigate or prosecute any alcohol or drug abuse patient.[facility]In the event this information is protected by the Federal Confidentiality of Alcohol and Drug Abuse Patient Records regulations: The Federal rules restrict any use of the information to criminally investigate or prosecute any alcohol or drug abuse patient.[facility]In the event this information is protected by the Federal Confidentiality of Alcohol and Drug Abuse Patient Records regulations: The Federal rules restrict any use of the information to criminally investigate or prosecute any alcohol or drug abuse patient.[facility]In the event this information is protected by the Federal Confidentiality of Alcohol and Drug Abuse Patient Records regulations: The Federal rules restrict any use of the information to criminally investigate or prosecute any alcohol or drug abuse patient.[facility]In the event this information is protected by the Federal Confidentiality of Alcohol and Drug Abuse Patient Records regulations: The Federal rules restrict any use of the information to criminally investigate or prosecute any alcohol or drug abuse patient.[facility]In the event this information is protected by the Federal Confidentiality of Alcohol and Drug Abuse Patient Records regulations: The Federal rules restrict any use of the information to criminally investigate or prosecute any alcohol or drug abuse patient.[facility]In the event this information is protected by the Federal Confidentiality of Alcohol and Drug Abuse Patient Records regulations: The Federal rules restrict any use of the information to criminally investigate or prosecute any alcohol or drug abuse patient.[facility]In the event this information is protected by the Federal Confidentiality of Alcohol and Drug Abuse Patient Records regulations: The Federal rules restrict any use of the information to criminally investigate or prosecute any alcohol or drug abuse patient.[facility]In the event this information is protected by the Federal Confidentiality of Alcohol and Drug Abuse Patient Records regulations: The Federal rules restrict any use of the information to criminally investigate or prosecute any alcohol or drug abuse patient.[facility]In the event this information is protected by the Federal Confidentiality of Alcohol and Drug Abuse Patient Records regulations: The Federal rules restrict any use of the information to criminally investigate or prosecute any alcohol or drug abuse patient.[facility]In the event this information is protected by the Federal Confidentiality of Alcohol and Drug Abuse Patient Records regulations: The Federal rules restrict any use of the information to criminally investigate or prosecute any alcohol or drug abuse patient.[facility]In the event this information is protected by the Federal Confidentiality of Alcohol and Drug Abuse Patient Records regulations: The Federal rules restrict any use of the information to criminally investigate or prosecute any alcohol or drug abuse patient.[facility]In the event this information is protected by the Federal Confidentiality of Alcohol and Drug Abuse Patient Records regulations: The Federal rules restrict any use of the information to criminally investigate or prosecute any alcohol or drug abuse patient.[facility]In the event this information is protected by the Federal Confidentiality of Alcohol and Drug Abuse Patient Records regulations: The Federal rules restrict any use of the information to criminally investigate or prosecute any alcohol or drug abuse patient.[facility]In the event this information is protected by the Federal Confidentiality of Alcohol and Drug Abuse Patient Records regulations: The Federal rules restrict any use of the information to criminally investigate or prosecute any alcohol or drug abuse patient.[facility]In the event this information is protected by the Federal Confidentiality of Alcohol and Drug Abuse Patient Records regulations: The Federal rules restrict any use of the information to criminally investigate or prosecute any alcohol or drug abuse patient.[facility]In the event this information is protected by the Federal Confidentiality of Alcohol and Drug Abuse Patient Records regulations: The Federal rules restrict any use of the information to criminally investigate or prosecute any alcohol or drug abuse patient.[facility] HospitalIn the event this information is protected by the Federal Confidentiality of Alcohol and Drug Abuse Patient Records regulations: The Federal rules restrict any use of the information to criminally investigate or prosecute any alcohol or drug abuse patient.[facility] HospitalIn the event this information is protected by the Federal Confidentiality of Alcohol and Drug Abuse Patient Records regulations: The Federal rules restrict any use of the information to criminally investigate or prosecute any alcohol or drug abuse patient.[facility] HospitalIn the event this information is protected by the Federal Confidentiality of Alcohol and Drug Abuse Patient Records regulations: The Federal rules restrict any use of the information to criminally investigate or prosecute any alcohol or drug abuse patient.[facility] HospitalIn the event this information is protected by the Federal Confidentiality of Alcohol and Drug Abuse Patient Records regulations: The Federal rules restrict any use of the information to criminally investigate or prosecute any alcohol or drug abuse patient.[facility] HospitalIn the event this information is protected by the Federal Confidentiality of Alcohol and Drug Abuse Patient Records regulations: The Federal rules restrict any use of the information to criminally investigate or prosecute any alcohol or drug abuse patient.[facility] HospitalIn the event this information is protected by the Federal Confidentiality of Alcohol and Drug Abuse Patient Records regulations: The Federal rules restrict any use of the information to criminally investigate or prosecute any alcohol or drug abuse patient.[facility] HospitalIn the event this information is protected by the Federal Confidentiality of Alcohol and Drug Abuse Patient Records regulations: The Federal rules restrict any use of the information to criminally investigate or prosecute any alcohol or drug abuse patient.[facility] HospitalIn the event this information is protected by the Federal Confidentiality of Alcohol and Drug Abuse Patient Records regulations: The Federal rules restrict any use of the information to criminally investigate or prosecute any alcohol or drug abuse patient.[facility] HospitalIn the event this information is protected by the Federal Confidentiality of Alcohol and Drug Abuse Patient Records regulations: The Federal rules restrict any use of the information to criminally investigate or prosecute any alcohol or drug abuse patient.[facility] HospitalIn the event this information is protected by the Federal Confidentiality of Alcohol and Drug Abuse Patient Records regulations: The Federal rules restrict any use of the information to criminally investigate or prosecute any alcohol or drug abuse patient.[facility] HospitalIn the event this information is protected by the Federal Confidentiality of Alcohol and Drug Abuse Patient Records regulations: The Federal rules restrict any use of the information to criminally investigate or prosecute any alcohol or drug abuse patient.[facility] HospitalIn the event this information is protected by the Federal Confidentiality of Alcohol and Drug Abuse Patient Records regulations: The Federal rules restrict any use of the information to criminally investigate or prosecute any alcohol or drug abuse patient.[facility] HospitalIn the event this information is protected by the Federal Confidentiality of Alcohol and Drug Abuse Patient Records regulations: The Federal rules restrict any use of the information to criminally investigate or prosecute any alcohol or drug abuse patient.[facility] HospitalIn the event this information is protected by the Federal Confidentiality of Alcohol and Drug Abuse Patient Records regulations: The Federal rules restrict any use of the information to criminally investigate or prosecute any alcohol or drug abuse patient.[facility] HospitalIn the event this information is protected by the Federal Confidentiality of Alcohol and Drug Abuse Patient Records regulations: The Federal rules restrict any use of the information to criminally investigate or prosecute any alcohol or drug abuse patient.[facility] HospitalIn the event this information is protected by the Federal Confidentiality of Alcohol and Drug Abuse Patient Records regulations: The Federal rules restrict any use of the information to criminally investigate or prosecute any alcohol or drug abuse patient.[facility] HospitalIn the event this information is protected by the Federal Confidentiality of Alcohol and Drug Abuse Patient Records regulations: The Federal rules restrict any use of the information to criminally investigate or prosecute any alcohol or drug abuse patient.[facility] HospitalIn the event this information is protected by the Federal Confidentiality of Alcohol and Drug Abuse Patient Records regulations: The Federal rules restrict any use of the information to criminally investigate or prosecute any alcohol or drug abuse patient.[facility] HospitalIn the event this information is protected by the Federal Confidentiality of Alcohol and Drug Abuse Patient Records regulations: The Federal rules restrict any use of the information to criminally investigate or prosecute any alcohol or drug abuse patient.[facility] HospitalIn the event this information is protected by the Federal Confidentiality of Alcohol and Drug Abuse Patient Records regulations: The Federal rules restrict any use of the information to criminally investigate or prosecute any alcohol or drug abuse patient.[facility] HospitalIn the event this information is protected by the Federal Confidentiality of Alcohol and Drug Abuse Patient Records regulations: The Federal rules restrict any use of the information to criminally investigate or prosecute any alcohol or drug abuse patient.[facility] HospitalIn the event this information is protected by the Federal Confidentiality of Alcohol and Drug Abuse Patient Records regulations: The Federal rules restrict any use of the information to criminally investigate or prosecute any alcohol or drug abuse patient.[facility] Reason for Visit (unrecogniz ed section and content) Reason Comments Radiology CT Specialty Diagnoses / Procedures Referred By Contac t Referred To Contact CT IMAGING Diagnoses Malignant neoplasm of rectum (HCC) Procedures CT CHEST W IVCON DIAGNOSTIC COMPUTED TOMOGRAPHY THORAX W/CONTRAST Minerva Anderson MD [address] [place] [address] [place] [address] [place] [address] Referral ID Status Reason Start Date Expiration Date V isits Requested Visits Authorized [id number] Closed Auto-Generate d Referral 11/21/2023 12/20/2024 1 1 Reason Comments Appointment Reason Comments adenocarcinoma of [...] Diagnoses Rectal cancer (HCC) Minerva Anderson MD [address] [place] [address] [place] [address] Juan Carlos Koenig [address] [place] [address] Referral ID Status Reason Start Date Expiration Date V isits Requested Visits Authorized [id number] Authorized 12/17/2022 03/17/2023 99 99 Reason Comments Care Coordination C1D1 treatment follo w up call Specialty Diagnoses / Procedures [facility]erred To Contact Hematology / HEMATOLOGY/ONCOLOGY Diagnoses lab port chemotx FOLFOX *NEW START CHANGE IN TREATMENT* Procedures LAB/PORT Minerva Anderson MD [address] [place] [address] [place] [address] Juan Carlos Koenig [address] [place] [address] Referral ID Status Reason Start Date Expiration Date V isits Requested Visits Authorized [id number] Authorized 12/25/2022 10/20/2023 99 99 Reason Comments Rectal Cancer OTV 2 weeks 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 Reason Comments Care Coordination US Order Reason Onset Date Comments Refill Request 01/23/2023 Reason Comments Care Coordination DVT; Eliquis Reason Comments New Patient Evaluation Rectal Bleeding Specialty Diagnoses / Procedures Referred By Contac t Referred To Contact Gastroenterology Diagnoses Rectal cancer (HCC) Rectal bleeding Procedures CONSULT TO GASTROENTEROLOGY OFFICE/OUTPATIENT NEW HIGH MDM 60-74 MINUTES Andree Hollis, AZAEL.[facility] [address] [place] [address] Referral ID Status Reason Start Date Expiration Date V isits Requested Visits Authorized [id number] Closed PCP Requested Referral 01/23/2023 01/23/2024 1 1 Reason Comments New Patient Consult for rectal c ancer Reason Comments Rectal Cancer Treatment visit/port draw Reason Comments Medication Assistance Approved for Free Xarelto Reason Comments Patient Question Reason Comments Care Coordination MRI Question Reason Comments Orders Flex sig, CEA, MRI, CT 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 Lab Results; Ne uropathy Reason Comments Port Flush Specialty Diagnoses / Procedures Referred By Contac t Referred To Contact Hematology / HEMATOLOGY/ONCOLOGY Diagnoses lab port chemotx FOLFOX *NEW START CHANGE IN TREATMENT* Procedures LAB/PORT Minerva Anderson MD [address] [place] [address] Juan Carlos Arya [address] [place] [address] Specialty Diagnoses / Procedures [facility] Referred To Contact MR IMAGING Diagnoses Malignant neoplasm of rectum (HCC) Procedures MRI RECTUM WO/W IVCON MRI PELVIS W/O & [place] [address] [place] [address] Mr Imaging [id number] Referral ID Status Reason Start Date Expiration Date V isits Requested Visits Authorized [id number] Closed Auto-Generate d Referral 05/03/2023 06/01/2024 1 1 Reason Comments Rectal Cancer Referral ID Status Reason Start Date Expiration Date V isits Requested Visits Authorized [id number] Closed Auto-Generate d Referral 03/12/2024 04/11/2025 1 1 Specialty Diagnoses / Procedures Referred By Contac t Referred To Contact MR IMAGING Diagnoses Malignant neoplasm of rectum (HCC) Procedures MRI RECTUM WO/W IVCON MRI PELVIS W/O & W/CONTRAST MATERIAL Minerva Anderson MD [address] [place] [address] [place] [address] Mr Imaging [id number] Referral ID Status Reason Start Date Expiration Date V isits Requested Visits Authorized [id number] Closed Auto-Generate d Referral 03/12/2024 04/11/2025 1 1 Specialty Diagnoses / Procedures Referred By Contac t Referred To Contact CT IMAGING Diagnoses Malignant neoplasm of rectum (HCC) Procedures CT ABDOMEN W IVCON CT ABDOMEN W/[place] [address] [address] [place] [id number] Imaging [place] [address] Referral ID Status Reason Start Date Expiration Date V isits Requested Visits Authorized [id number] Closed Auto-Generate d Referral 05/03/2023 06/01/2024 1 1 Specialty Diagnoses / Procedures Referred By Contac t Referred To Contact CT IMAGING Diagnoses Lung nodules Rectal cancer (HCC) Procedures CT ABD/PEL W IVCON CT ABD & PELVIS W/CONTRAST Minerva Anderson MD [address] [place] [address] [place] [address] Ct Imaging [id number] Referral ID Status Reason Start Date Expiration Date V isits Requested Visits Authorized [id number] Closed Auto-Generate d Referral 11/19/2022 12/19/2023 1 1 Reason Comments Radiology NM Specialty Diagnoses / Procedures Referred By Contac t Referred To Contact MOLECULAR & FUNCTIONAL IMAGING Diagnoses Rectal cancer (HCC) Procedures NM PET/CT SKULL-THIGH INITIAL PET IMAGING CT ATTENUATION SKULL BASE MID-THIGH Minerva Anderson MD [address] [place] [address] [place] [address] Molecular & Functional Imaging [address] [place] [address] Referral ID Status Reason Start Date Expiration Date V isits Requested Visits Authorized [id number] Closed Auto-Generate d Referral 09/17/2022 10/17/2023 1 1 Specialty Diagnoses / Procedures Referred By Contac t Referred To Contact RADIATION ONCOLOGY Diagnoses Rectal adenocarcinoma (HCC) Procedures CT SIM PLANNING RADIATION ONCOLOGY THER RAD SIMULAJ-AIDED FIELD SETTING COMPLEX IMRT Dania Key MD [address] [address] Arturo Arya [address] [address] Referral ID Status Reason Start Date Expiration Date V isits Requested Visits Authorized [id number] Closed PCP Requested Referral 09/24/2022 10/20/2022 99 99 Reason Comments Care Coordination Appointment Request Reason Comments Patient Update Reason Comments Post Op s/p a Laparoscopic R ight Colectomy, Umbilical Hernia Repair on 07/23/[address] Norman for Colon perforation s/p colonoscopy Reason Comments Radiology CT Specialty Diagnoses / Procedures Referred By Contac t Referred To Contact CT IMAGING Diagnoses Infection in abdomen (HCC) Procedures CT ABD/PEL W IVCON CT ABD & PELVIS W/CONTRAST Celeste Andrews, COMMUNICATIONS SCIENTIST.CHAINSTITCH ZIPPER SETTER [address] [address], [facility] [address] [place] [address] [place] [address] Referral ID Status Reason Start Date Expiration Date V isits Requested Visits Authorized [id number] Closed Auto-Generate d Referral 08/13/2024 09/12/2025 1 1 Specialty Diagnoses / Procedures Referred By Contac t Referred To Contact CT IMAGING Diagnoses Malignant neoplasm of rectum (HCC) Procedures CT ABD/PEL W IVCON CT ABD & PELVIS W/CONTRAST Minerva Anderson MD [address] [address] [place] [address] Referral ID Status Reason Start Date Expiration Date V isits Requested Visits Authorized [id number] Closed Auto-Generate d Referral 03/12/2024 04/11/2025 1 1 Reason Comments Care Coordination Appointment Reason Comments Post Op Drain Removal Specialty Diagnoses / Procedures Referred By Contac t Referred To Contact Sleep Center Diagnoses Sleep apnea, unspecified type Procedures Home Sleep Study Valerie Roberts, COMMUNICATIONS SCIENTIST - CHAINSTITCH ZIPPER SETTER [address] [place] [address] Ami Krishnamurthy MD [address] [place] [address] Referral ID Status Reason Start Date Expiration Date Visits Re quested Visits Authorized [id number] Open 08/20/2024 08/20/2025 1 1 Reason Comments Pain Reason Comments Suspicious Skin Lesion Specialty Diagnoses / Procedures Referred By Contac t Referred To Contact Dermatology Diagnoses Actinic keratosis Procedures IN OFFICE/OUTPATIENT NEW HIGH MDM 60 MINUTES Chelsie Fernando PA [address] [place] [address] Magui Vegas MD [address] [place] [address] Referral ID Status Reason Start Date Expiration Date V isits Requested Visits Authorized [id number] Closed Specialty Services Required 05/27/2024 11/23/2024 1 1 Reason Comments Care Coordination Abdominal Pain and S welling Specialty Diagnoses / Procedures Referred By Contac t Referred To Contact CT IMAGING Diagnoses Intra-abdominal and pelvic swelling, mass and lump, unspecified site Procedures CT ABDOMEN W IVCON CT ABDOMEN W/CONTRAST Kari Diaz, PA-C [address] [place] [address] [place] [address] [place] [address] Referral ID Status Reason Start Date Expiration Date Visits Requested Visits Authorized [id number] New Request Auto-Generat ed Referral 11/10/2024 12/10/2025 1 1 Specialty Diagnoses / Procedures Referred By Contac t Referred To Contact Radiology Diagnoses Right lower quadrant abdominal pain Procedures US ABDOMEN COMPLETE Negar Pinedo MD [address] [place] [address] Referral ID Status Reason Start Date Expiration Date V isits Requested Visits Authorized [id number] Not Required - RTA 12/15/2024 12/15/2025 1 1 Specialty Diagnoses / Procedures Referred By Contac t Referred To Contact CT IMAGING Diagnoses Malignant neoplasm of rectum (HCC) Procedures CT ABD/PEL W IVCON CT ABD & PELVIS W/CONTRAST Minerva Anderson MD [address] [place] [address] [place] [address] Phone: tel: fax: [place] [address] Referral ID Status Reason Start Date Expiration Date V isits Requested Visits Authorized [id number] Closed Auto-Generate d Referral 12/07/2024 01/06/2026 1 1 Reason Onset Date Comments Care Coordination 12/25/2024 CT Results Reason Comments Appointment Appointment reminder call - spoke with patient - gave directions to the office Reason Comments Established Patient Hemorrhoids Rectal Bleeding Reason Comments Orders Goals (unrecognized section and content) Goals may [...] BE BASED ON THE PRIMARY CLINICAL RECORDS. [employer] provides no warranty or guarantee of the accuracy or completeness of information in this document.
--- NOTE | 2025-07-29 09:40 | XR_ITS ---
The [address] [address] Patient Name: MERVAT GRAYSON MRN: [id number] date: 1950 Sex: M Assigned Patient Location: [facility] Current Patient Location: [facility] Accession/Order Number: [id number] Exam Date: 07/29/2025 10:50 Report Date: 07/29/2025 11:34 At the request of: BALAJI MCKEE MD Procedure: XR chest 2V PA AND LATERAL CHEST: CLINICAL HISTORY: Preoperative clearance for kidney stones. COMPARISON: None An Tuauqm-b-Vzio catheter is visualized on the right. Slight elevation of the left hemidiaphragm is noted. There is mild basilar atelectasis and/or scarring, greater on the left. There is no additional consolidation, effusion or pneumothorax. The cardiac, hilar and mediastinal silhouettes are within normal limits. There is no vascular congestion. The visualized bony thorax is intact. Mild degenerative changes noted at the spine. There is a cervical fusion plate. XR/XR chest 2V IMPRESSION: BASILAR ATELECTASIS AND/OR SCARRING. NO OTHER ACUTE FINDINGS. Impression dictated by: Viola Santiago M.D. 07/29/2025 11:34 AM Dictation Location: [place] [address] Electronically authenticated by: [id number] Y Date: 07/29/2025 11:34
--- NOTE | 2025-07-29 09:40 | ECG_ITS ---
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 Measurements Intervals [place] Rate: 54 P: 3 AR: 193 QRS: -36 QRSD: 116 T: -23 QT: 454 QTc: 431 Interpretive Statements SINUS BRADYCARDIA MARKED LEFT AXIS DEVIATION [QRS AXIS < -30] INCOMPLETE RIGHT BUNDLE BRANCH BLOCK [90+ ms QRS DURATION, TERMINAL R IN V1/V2, 40+ ms S IN I/aVL/V4/V5/V6] SEPTAL MYOCARDIAL INFARCTION [40+ ms Q WAVE IN V1/V2], PROBABLY OLD Abnormal ECG Compared to ECG 03/23/2021 12:08:02 Left-axis deviation now present Incomplete right bundle-branch block now present Myocardial infarct finding still present Electronically Signed On 07-29-2025 10:50:38 EDT by ALEA IGNACIO M.D.
[2025-07-29 10:55] LABS: Anion Gap 13.9; Blood Urea Nitrogen 19.0 mg/dL (7.0-18.0); Calcium 8.7 mg/dL (8.5-10.1); Carbon Dioxide 26.1 mmol/L (21.0-32.0); Chloride 107 mmol/L (98-107); Estimated GFR (African America >60 (>=60 mL/min/1.73m^2); Estimated GFR (Non-African Ame >60 (>=60 mL/min/1.73m^2); Glucose 94 mg/dL (74-106); Potassium 4.0 mmol/L (3.5-5.1); Sodium 143 mmol/L (136-145)
[2025-07-29 11:29] LABS: Hematocrit 39.1 % (42.0-54.0); Hemoglobin 12.6 g/dL (14.0-18.0); Immature Granulocytes Abs Auto 0.03 10^3/uL (0.00-0.03); Immature Granulocytes Pct Auto 0.4 % (0.0-0.5); Lymphocytes Absolute Auto 1.0 10^3/uL (1.2-3.8); Mean Corpuscular HGB Conc 32.2 g/dL (29.9-35.2); Mean Corpuscular Hemoglobin 30.9 pg (25.9-34.0); Mean Corpuscular Volume 95.8 fL (80.0-94.0); Platelet Count 207 10^3/uL (150-450); Red Blood Count 4.08 10^6/uL (4.70-6.10); White Blood Count 7.2 10^3/uL (4.0-11.0)
[2025-07-29 11:54] LABS: INR 1.25; Partial Thromboplastin Time 35.0 sec (22.3-36.2); Prothrombin Time 13.0 sec (9.0-11.6)
== END 2025-07-29 07:50 | disposition home or self-care (01) ==
LOC: PST 07:50
PROVIDERS: PCP Family Medicine; Visit Provider Urology
DX: Z01.810 Encounter for preprocedural cardiovascular examination (principal); Z01.812 Encounter for preprocedural laboratory examination; N20.1 Calculus of ureter; N20.0 Calculus of kidney
CPT/HCPCS: 71046; 80048; 85025; 85610; 85730; 93005

== ENCOUNTER 2025-08-05 07:51 | Day surgery (SDC) | payer MEDICARE, OTHER, SELFPAY ==
--- OUTSIDE RECORDS SUMMARY | 2023-07-02 07:00 | XMS_ITS | Continuity of Care Document ---
Author Organization [facility] Address [address] [place] [address] [place] [address] Phone Care Team Providers Care Manager Immunology Name Role Phone Taye ARRINGTON, Campos Unavailable Unavailable Allergies, Adverse Reactions, Alerts Substance Reaction Status Criticality No Known Allergies Active No Inform ation Procedures Procedure Date NRV CNDJ TEST 9-10 STUDIES MUSC TEST DONE W/N TEST COMP NRV CNDJ TEST 7-8 STUDIES MUSC TEST DONE W/N TEST COMP Advance Directives Directive Yes / No Effective Date File Name No Information Encounters Encounter Description Practice Location Reason(s) For Visit Diagnoses Date Provider Providers Copied on Encounter [facility], [address] [place] [address], [id number], tel:[phone] [facility] Neurology EMG-BUE (chief complaint) Anesthesia of skin Taye Gasca. [address], [id number], [place]. tel:[phone] Referring Provider: Campos Kothari MD, [address], [id number] . tel:[phone] [facility], [address] [place] [address], [id number], tel:[phone] [facility] Neurology EMG-BUE (chief complaint) Anesthesia of skin No Information Family History Family Member Type Diagnosis Age At Onset No Information Payers Payer name Insurance type Covered libertarian ID Authoriza ticlaudia(s) Anthem Medicare Plus Blue [id number] Social History Type Description Quantity Date Captured Comments Alcohol Use Details Unknown Caffeine Use Details Unknown Tobacco Use Status No Information Smoking Status No Information Sex Male Chief Complaint And Reason For Visit From encounter dated '07/02/2023 11:00'. EMG-BUE (chief complaint). Description: referred by Dr. Mcclendon Reason For Referral Reason For Referral No Information History Of Present Illness Encounter Date Complaint History Of Prese nt Illness EMG-BUE referred by Dr. Mcclendon EMG-BUE Functional Status Date Functional Assessmen t No Information Instructions Date Instruction Additional Infor mation No Information Assessments Type Assessment Date assessment Anesthesia of skin Patient Care Teams Name Effective Dates (start - stop) Status Members No Information
--- OUTSIDE RECORDS SUMMARY | 2025-07-28 13:00 | XMS_ITS | Encounter Summary ---
Author Organization [facility] Address [address] [place] [id number] Care Team Providers Care Legal Contracts Specialist Name Role Phone Tonio Marin DO Primary Care Provider [phone] Sera Forbes Unavailable Unavailable Dania Key MD Unavailable [phone] Andree Rome APRN.BALLROOM DANCE INSTRUCTOR Unavailable Laurel Ríos RN Unavailable Unavailable Source Comments In the event this information is protected by the Federal Confidentiality of Alcohol and Drug AbusePatient Records regulations: The Federal rules restrict any use of the information to criminally investigate or prosecute any alcohol or drug abuse patient.[facility] Encounter Details Date Type Department Care Team (Latest Contact Info) Description 07/28/2025 1:00 PM EDT Infusion Center Hematology/Oncology [address] [place] [address] [place] [address] Megaloblastic anemia due to vitamin B12 deficiency (Primary Dx) Social History Tobacco Use Types Packs/Day Years Used Date Smoking Tobacco: Never Passive Smoke Exposure: Never Smokeless Tobacco: Never Alcohol Use Standard Drinks/Week Comments Yes 0 (1 standard drink = 0.6 oz pur e alcohol) 1 beer daily [facility] Utilities Answer Date Recorded In the past 12 months has th e electric, gas, oil, or water company threatened to shut off services in your home? No 08/17/2024 PHQ-2 Answer Date Recorded PHQ-2 score 2 04/11/2025 Hunger Vital Sign Answer Date Recorded Within the past 12 months, y ou worried that your food would run out before you got the money to buy more. Never true 08/17/20 24 Within the past 12 months, t he food you bought just didn't last and you didn't have money to get more. Never true 08/17/2024 PRAPARE - Transportation Answer Date Re corded In the past 12 months, has l ack of transportation kept you from medical appointments or from getting medications? No 07/22 In the past 12 months, has l ack of transportation kept you from meetings, work, or from getting things needed for daily living? No 08/17/2024 Housing Stability Vital Sign Answer Brian e Recorded In the last 12 months, was t here a time when you were not able to pay the mortgage or rent on time? No 08/17/2024 In the past 12 months, how m any times have you moved where you were living? 1 08/17/2024 At any time in the past 12 m [facility], were you homeless or living in a fci (including now)? No 08/17/2024 Area Deprivation Index Answer Date Zander rded National Score (1-100), lower number is lower ri sk 53 02/21/2023 State Score (1-10), lower number is lower risk 3 02/21/2023 Data from: https://www.neighborhoodatlas.medicine.[facility].edu/. Last address used for calculation [address] 02/21/2023 Sex and Gender Information Value Date Recorded Sex Assigned at Not on file Legal Sex Male 9:37 AM EDT Gender Identity Not on file Sexual Orientation Not on file documented as of this encounter Last Filed Vital Signs Vital Sign Reading Time Taken Comments Blood Pressure 126/79 07/28/2025 1:07 PM EDT Pulse 56 07/28/2025 1:07 PM EDT Temperature 36.8 C (98.3 F) 07/28/2025 1:07 PM EDT Respiratory Rate 16 07/28/2025 1:07 PM EDT Oxygen Saturation 98% 07/28/2025 1:07 PM EDT Inhaled Oxygen Concentration - - Weight - - Height - - Body Mass Index - - documented in this encounter Functional Status * Are you deaf or do you have serious difficulty hearing? Answer Date of Assessment Author No 07/29/2024 4:30 PM EDT Geni Rothamn RN * Are you blind or do you have serious difficulty seeing, even when wearing glasses? Answer Date of Assessment Author No 07/29/2024 4:30 PM EDT Geni Rothman RN * Do you have serious difficulty walking or climbing stairs? Answer Date of Assessment Author No 07/29/2024 4:30 PM EDT Geni Rothman RN * Do you have difficulty dressing or bathing? Answer Date of Assessment Author No 07/29/2024 4:30 PM EDT Geni Rothman RN * Because of a physical, mental, or emotional condition, do you have difficulty doing errands alone such as visiting a doctor's office or shopping? Answer Date of Assessment Author No 07/29/2024 4:30 PM EDT Geni Rothman RN documented as of this encounter Mental Status * Because of a physical, mental, or emotional condition, do you have serious difficulty concentrating, remembering, or making decisions? Answer Entry Date Author No 07/29/2024 4:30 PM EDT Geni Rothman RN documented in this encounter Plan of Treatment Upcoming Encounters Date Type Department Care Team (Late st Contact Info) Description 09/01/2025 10:45 AM EST Infusion Center Hematology/Oncolog y [address] [place] [address] B12 09/29/2025 10:45 AM EST Infusion Center Hematology/Oncolog y [address] [place] [address] B12 10/08/2025 10:00 AM EST Office Visit Colorectal Surgery [address] [place] [address] [place] [address] [place] [address] F/up per Dr. Ospina 10/27/2025 10:45 AM EST Infusion Center Hematology/Oncolog y [address] [place] [address] B12 11/24/2025 10:45 AM EST Infusion Center Hematology/Oncolog y [address] [place] [address] B12 12/22/2025 10:30 AM EST Infusion Center Hematology/Oncolog y [address] [facility] [place] [address] 6 MONTH FOLLOW UP 12/22/2025 11:00 AM EST Visit (SP) Office Hematology/Oncolog y [address] [facility] [place] [address] Andree Rome APRN.BALLROOM DANCE INSTRUCTOR [address] [facility] [place] [address] 6 MONTH FOLLOW UP 12/22/2025 11:30 AM EST Infusion Center Hematology/Oncolog y [address] [facility] [place] [address] 6 MONTH FOLLOW UP 07/12/2026 8:15 AM EDT Appointment Radiology [address] [place] [address] CT CAP W IV 07/18/2026 2:40 PM EDT Visit (SP) Office Hematology/Oncolog y [address] [place], [place] [address] [place] [address] Jamari Phillip MD [address] [facility] [place] [address] [address] FO[address] UP AFTER CT SCAN documented as of this encounter Visit Diagnoses Diagnosis Megaloblastic anemia due to vitamin B12 deficiency- Primary Other vitamin B12 deficiency anemia documented in this encounter Administered Medications Inactive Administered Medications - up to 3 most recent administrations Medication Order MAR Action Action Date Dose Rate Site cyanocobalamin 1,000 mcg injection 1,000 mcg, INTRAMUSCULAR, ONCE, 1 dose, On Sat07/28/25 at 1330Indications:Megalobla stic anemia due to vitamin B12 deficiency Given 07/28/2025 1:18 PM EDT 1,000 mcg Deltoid, Left documented in this encounter Care Teams Legal Contracts Specialist Relationship Specialty Start Date End Date Tonio Marin DO PCP - General Family Medicine 04/16/13 Sera Forbes LSW Director Of Campus Recreation 09/26/22 Dania Key MD [address] [place] [address] Physician Radiation Oncology 10/01/22 Andree Rome APRN.BALLROOM DANCE INSTRUCTOR [address] [place] [address] Nurse Practitioner Hematology/Oncology 10/01/22 Laurel Ríos, RN Specialty Machine Bunch Maker Colon and Rectal Surgery 02/18/23 02/19/28 documented as of this encounter
[2025-07-29 10:31] VITALS: BP 133/83; PULSE 54; TEMP 36.4; O2SAT 97; BMI 29.5
--- OUTSIDE RECORDS SUMMARY | 2025-08-04 10:30 | XMS_ITS | Encounter Summary ---
Author Organization [facility] Address [address] [place] [address] Care Team Providers Care Radiology Manager Name Role Phone Tonio Marin DO Primary Care Provider [phone] Sera Forbes Unavailable Unavailable Dania Key MD Unavailable [phone] Andree Rome APRN.CASH ACCOUNTING CLERK Unavailable [phone] Laurel Ríos RN Unavailable Unavailable Source Comments In the event this information is protected by the Federal Confidentiality of Alcohol and Drug AbusePatient Records regulations: The Federal rules restrict any use of the information to criminally investigate or prosecute any alcohol or drug abuse patient.[facility] Encounter Details Date Type Department Care Team (Latest Contact Info) Description 08/04/2025 10:30 AM EDT Infusion Center Hematology/Oncology [address] [place] [address] [place] [address] 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 No 08/17/2024 Area Deprivation Index Answer Date Zander rded National Score (1-100), lower number is lower ri sk 53 02/21/2023 State Score (1-10), lower number is lower risk 3 02/21/2023 Data from: https://www.neighborhoodatlas.medicine.[facility].edu/. Last address used for calculation [address] 02/21/2023 Sex and Gender Information Value Date Recorded Sex Assigned at Not on file Legal Sex Male 9:37 AM EDT Gender Identity Not on file Sexual Orientation Not on file documented as of this encounter Last Filed Vital Signs Vital Sign Reading Time Taken Comments Blood Pressure 120/78 08/04/2025 10:42 AM EDT Pulse 60 08/04/2025 10:42 AM EDT Temperature 36.9 C (98.4 F) 08/04/2025 10:42 AM EDT Respiratory Rate 16 08/04/2025 10:42 AM EDT Oxygen Saturation 96% 08/04/2025 10:42 AM EDT Inhaled Oxygen Concentration - - Weight - - Height - - Body Mass Index - - documented in this encounter Functional Status * Are you deaf or do you have serious difficulty hearing? Answer Date of Assessment Author No 07/29/2024 4:30 PM EDT Geni Rothman RN * Are you blind or do [...] Hematology/Oncolog y [address] [place] [address] B12 09/29/2025 10:45 AM EST Infusion Center Hematology/Oncolog y [address] [place] [address] B12 10/08/2025 10:00 AM EST Office Visit Colorectal Surgery [address] [place] [address] [place] [address] [place] [address] F/up per Dr. Ospina 10/27/2025 10:45 AM EST Infusion Center Hematology/Oncolog y [address] [place] [address] B12 11/24/2025 10:45 AM EST Infusion Center Hematology/Oncolog y [address] [facility] [place] [address] B12 12/22/2025 10:30 AM EST Infusion Center Hematology/Oncolog y [address] [facility] [place] [address] 6 MONTH FOLLOW UP 12/22/2025 11:00 AM EST Visit (SP) Office Hematology/Oncolog y [address] [facility] [place] [address] Andree Rome APRN.CASH ACCOUNTING CLERK [address] [place] [address] 6 MONTH FOLLOW UP 12/22/2025 11:30 AM EST Infusion Center Hematology/Oncolog y [address] [facility] [place] [address] 6 MONTH FOLLOW UP 07/12/2026 8:15 AM EDT Appointment Radiology Pet CT [address] [place] [address] CT CAP W IV 07/18/2026 2:40 PM EDT Visit (SP) Office Hematology/Oncolog y [address] [place], [place] [address] [place] [address] Jamari Phillip MD [address] [facility] [place] [address] 1 YE[address] FOLLOW UP AFTER CT SCAN [...] 1,000 mcg, INTRAMUSCULAR, ONCE, 1 dose, On Sat08/04/25 at 1100Indications:Megalobla stic anemia due to vitamin B12 deficiency Given 08/04/2025 10:44 AM EDT 1,000 mcg Deltoid, Left documented in this encounter Care Teams Radiology Manager Relationship Specialty Start Date End Date Tonio Marin DO PCP - General Family Medicine 04/16/13 Sera Forbes LSW Toilet Attendant 09/26/22 Dania Key MD [address] [place] [address] Physician Radiation Oncology 10/01/22 Andree Rome APRN.CASH ACCOUNTING CLERK [address] [place] [address] Nurse Practitioner Hematology/Oncology 10/01/22 Laurel Ríos, RN Specialty Manager Dish Colon and Rectal Surgery 02/18/23 02/19/28 documented as of this encounter
[2025-08-05] VITALS (13 sets, daily range): BP systolic 106–141; BP diastolic 68–94; PULSE 56–70; TEMP 36.1–36.2; O2SAT 88–97
--- OUTSIDE RECORDS SUMMARY | 2025-08-05 07:54 | XMS_ITS | Encounter Summary ---
Author Organization [facility] Address [address] [place] [address] Care Team Providers Care Office Associate Name Role Phone TomasEloyToniosaba Dailey DO Primary Care Provider [phone] Sera Forbes Unavailable Unavailable Nick Anderson MD Unavailable Unavail able Dania Key MD Unavailable [phone] Andree Rome APRN.HUMAN FACTORS ADVISOR LEAD Unavailable [phone] Denisha Duarte RN Unavailable [phone] Laurel Ríos RN Unavailable Unavailable Source Comments In the event this information is protected by the Federal Confidentiality of Alcohol and Drug AbusePatient Records regulations: The Federal rules restrict any use of the information to criminally investigate or prosecute any alcohol or drug abuse patient.[facility] Encounter Details Date Type Department Care Team (Late st Contact Info) Description 01/22/2024 Patient Msg Gastroenterology [address] [place], [place] [id number] [place] [address] [place], [place] [id number] Prep Instructions Social History Tobacco Use Types Packs/Day Years Used Date Smoking Tobacco: Never Passive Smoke Exposure: Never Smokeless Tobacco: Never Alcohol Use Standard Drinks/Week Comments Yes 0 (1 standard drink = 0.6 oz pur e alcohol) rarely PHQ-2 Answer Date Recorded PHQ-2 score 0 11/21/2023 Area Deprivation Index Answer Date Zander rded National Score (1-100), lower number is lower ri sk 53 02/21/2023 State Score (1-10), lower number is lower risk 3 02/21/2023 Data from: https://www.neighborhoodatlas.medicine.[facility]/. Last address used for calculation [address] 02/21/2023 Sex and Gender Information Value Date Recorded Sex Assigned at Not on file Legal Sex Male 9:37 AM EDT Gender Identity Not on file Sexual Orientation Not on file documented as of this encounter Plan of Treatment Upcoming Encounters Date Type Department Care Team (Late st Contact Info) Description 09/01/2025 10:45 AM EST Infusion Center Hematology/Oncolog y [address] [place] [address] B12 09/29/2025 10:45 AM EST Infusion Center Hematology/Oncolog y [address] [place] [address] B12 10/08/2025 10:00 AM EST Office Visit Colorectal Surgery [address] [place] [address] [place] [address] [place] [address] F/up per Dr. Ospina 10/27/2025 10:45 AM EST Infusion Center Hematology/Oncolog y [address] [place] [address] B12 11/24/2025 10:45 AM EST Infusion Center Hematology/Oncolog y [address] [place] [address] B12 12/22/2025 10:30 AM EST Infusion Center Hematology/Oncolog y [address] [place] [address] 6 MONTH FOLLOW UP 12/22/2025 11:00 AM EST Visit (SP) Office Hematology/Oncolog y [address] [place] [address] Andree Rome, AZAEL.HUMAN FACTORS ADVISOR LEAD [address] [place] [address] 6 MONTH FOLLOW UP 12/22/2025 11:30 AM EST Infusion Center Hematology/Oncolog y [address] [place] [address] 6 MONTH FOLLOW UP 07/12/2026 8:15 AM EDT Appointment Radiology Pet CT [address] [place] [address] CT CAP W IV 07/18/2026 2:40 PM EDT Visit (SP) Office Hematology/Oncolog y [address] [place] [address] Jamari Phillip MD [address] [place] [address] [address] FOLLOW UP AFTER CT SCAN documented as of this encounter Visit Diagnoses Not on filedocumented in this encounter Care Teams Office Associate Relationship Specialty Start Date End Date Tonio Marin DO PCP - General Family Medicine 04/16/13 Sera Forbes LSW Senior Ux Developer 09/26/22 Nick Anderson MD Physician Hematology/Oncology 10/01/22 04/23/25 Dania Key MD [address] [place] [address] Physician Radiation Oncology 10/01/22 Andree Rome APRN.HUMAN FACTORS ADVISOR LEAD [facility] [place] [address] [place] [address] Nurse Practitioner Hematology/Oncology 10/01/22 Denisha Duarte, ALEXUS [address] [place] [address] [place] [address] Specialty Clinical Laboratory Manager Hematology/Oncology 10/01/22 08/11/24 Laurel Ríos RN Specialty Clinical Laboratory Manager Colon and Rectal Surgery 02/18/23 02/19/28 documented as of this encounter
--- OUTSIDE RECORDS SUMMARY | 2025-08-05 07:54 | XMS_ITS | Encounter Summary ---
Author Organization [facility] Address [address] [place] [address] Care Team Providers Care Line Rider Name Role Phone Tonio Marin DO Primary Care Provider [phone] Sera Forbes Unavailable Unavailable Nick Anderson MD Unavailable Unavail able Dania Key MD Unavailable Andree Rome APRN.EXHAUST EMISSIONS INSPECTOR Unavailable [phone] Laurel Ríos RN Unavailable Unavailable Source Comments In the event this information is protected by the Federal Confidentiality of Alcohol and Drug AbusePatient Records regulations: The Federal rules restrict any use of the information to criminally investigate or prosecute any alcohol or drug abuse patient.[facility] Encounter Details Date Type Department Care Team (Late st Contact Info) Description 12/09/2024 Patient Msg Colorectal Surgery [address] [place] [address] Provider, Ignacio sigmoidoscopy 2024 Social History Tobacco Use Types Packs/Day Years Used Date Smoking Tobacco: Never Passive Smoke Exposure: Never Smokeless Tobacco: Never Alcohol Use Standard Drinks/Week Comments Yes 0 (1 standard drink = 0.6 oz pur e alcohol) rarely [facility] Utilities Answer Date Recorded In the past 12 months has th e electric, gas, oil, or water company threatened to shut off services in your home? No 08/17/2024 PHQ-2 Answer Date Recorded PHQ-2 score 2 12/06/2024 Hunger Vital Sign Answer Date Recorded Within [...] any time in the past 12 m [facility], were you homeless or living in a long term (including now)? No 08/17/2024 Area Deprivation Index Answer Date Zander rded National Score (1-100), lower number is lower ri sk 53 02/21/2023 State Score (1-10), lower number is lower risk 3 02/21/2023 Data from: https://www.neighborhoodatlas.medicine.[facility].edu/. Last address used for calculation [address] 02/21/2023 Sex and Gender Information Value Date Recorded Sex Assigned at Not on file Legal Sex Male 9:37 AM EDT Gender Identity Not on file Sexual Orientation Not on file documented as of this encounter Functional Status * Are you deaf or do you have serious difficulty hearing? Answer Date of Assessment Author No 07/29/2024 4:30 PM EDT Geni Rothman, ALEXUS * Are you blind or do you [...] Hematology/Oncolog y [address] [place] [address] B12 09/29/2025 10:45 AM EST Infusion Center Hematology/Oncolog y [address] [place] [address] B12 10/08/2025 10:00 AM EST Office Visit Colorectal Surgery [address] [place], [place] [address] [place] [address] [place], [place] [address] F/up per Dr. Ospina 10/27/2025 10:45 AM EST Infusion Center Hematology/Oncolog y [address] [place] [address] B12 11/24/2025 10:45 AM EST Infusion Center Hematology/Oncolog y [address] [place] [address] B12 12/22/2025 10:30 AM EST Infusion Center Hematology/Oncolog y [address] [place] [address] 6 MONTH FOLLOW UP 12/22/2025 11:00 AM EST Visit (SP) Office Hematology/Oncolog y [address] [place] [address] Andree Rome, AZAEL.EXHAUST EMISSIONS INSPECTOR [address] [place] [address] 6 MONTH FOLLOW UP 12/22/2025 11:30 AM EST Infusion Center Hematology/Oncolog y [address] [place] [address] 6 MONTH FOLLOW UP 07/12/2026 8:15 AM EDT Appointment Radiology Pet CT [address] [place] [address] CT CAP W IV 07/18/2026 2:40 PM EDT Visit (SP) Office Hematology/Oncolog y [address] [place] [address] Jamari Phillip MD [address] [place] [address] [address] FOLLOW UP AFTER CT SCAN documented as of this encounter Visit Diagnoses Not on filedocumented in this encounter Care Teams Line Rider Relationship Specialty Start Date End Date Tonio Marin DO PCP - General Family Medicine 04/16/13 Sera Forbes LSW Aquaculture Worker 09/26/22 Nick Anderson MD Physician Hematology/Oncology 10/01/22 04/23/25 Dania Key MD [facility] [place] [address] [place] [address] Physician Radiation Oncology 10/01/22 Andree Rome APRN.EXHAUST EMISSIONS INSPECTOR [address] [place] [address] Nurse Practitioner Hematology/Oncology 10/01/22 Laurel Ríos, RN Specialty Heavy Coil Winder Colon and Rectal Surgery 02/18/23 02/19/28 documented as of this encounter
--- OUTSIDE RECORDS SUMMARY | 2025-08-05 07:54 | XMS_ITS | Encounter Summary ---
Author Organization [facility] Address [address], [address] [place] [address] Care Team Providers Care Burr Bench Operator Name Role Phone Tonio Marin DO Primary Care Provider [phone] Encounter Details Date Type Department Care Team (Late st Contact Info) Description 09/01/2024 Orders Only [facility] Primary and Specialty Care [address] [place] [address] Provider, MD Vikas Social History Tobacco Use Types Packs/Day Years Used Date Smoking Tobacco: Never Smokeless Tobacco: Never Alcohol Use Standard Drinks/Week Comments Yes 0 (1 standard drink = 0.6 oz pur e alcohol) occasional Overall Financial Resource Strain (CARDIA) Answe r Date Recorded How hard is it for you to pa y for the very basics like food, housing, medical care, and heating? Not hard at all 08/04/2024 PHQ-2 Answer Date Recorded PHQ-9 Total Score 0 03/27/2024 Hunger Vital Sign Answer Date Recorded Within the past 12 months, y ou worried that your food would run out before you got the money to buy more. Never true 08/04/20 24 Within the past 12 months, t he food you bought just didn't last and you didn't have money to get more. Never true 08/04/2024 PRAPARE - Transportation Answer Date Re corded Lack of Transportation (Medical) Not on file 08/04/2024 In the past 12 months, has l ack of transportation kept you from meetings, work, or from getting things needed for daily living? No 08/04/2024 Housing Stability Vital Sign Answer Brian e Recorded Unable to Pay for Housing in the Last Year Not o n file 07/10/2023 Number of Places Lived in the Last Year Not on f ile 07/10/2023 In the last 12 months, was t here a time when you did not have a steady place to sleep or slept in a mcfp (including now)? No 07/10/2023 Housing Stability Vital Sign Answer Brian e Recorded Unable to Pay for Housing in the Last Year Not o n file 08/04/2024 Number of Times Moved in the Last Year Not on fi le 08/04/2024 At any time in the past 12 m [facility], were you homeless or living in a mcfp (including now)? No 08/04/2024 Food Insecurity Answer Date Recorded Within the past 12 months, y ou worried that your food would run out before you got the money to buy more. 1 08/04/2024 Within the past 12 months, t he food you bought just didn't last and you didn't have money to get more. 1 08/04/2024 Sex and Gender Information Value Date Recorded Sex Assigned at Male 12/14/2024 9:10 AM EST Legal Sex Male 4:19 PM EDT Gender Identity Male 12/14/2024 9:10 AM EST Sexual Orientation Straight 12/14/2024 9: 10 AM EST documented as of this encounter Plan of Treatment Upcoming Encounters Date Type Department Care Team (Late st Contact Info) Description 01/24/2026 7:30 AM EDT Office Visit [facility] Primary Care [address] [place] [address] Tonio Marin DO [address] [place] [address] Annual f/u 03/15/2026 2:00 PM EDT Office Visit [facility] Pulmonology [address] [place] [address] [place] [address] [place] [address] 1 yr f/u documented as of this encounter Procedures Procedure Name Priority Date/Time Associated Diagnosis Comments CBC Routine 08/31/2024 4:49 PM EST documented in this encounter Results * CBC (08/31/2024 4:49 PM EST) Blood BLOOD SPECIMEN / Unknown us Historical Provider HEMATOLOGY ORDERABLES Fin al Result documented in this encounter Visit Diagnoses Not on filedocumented in this encounter Additional Health Concerns Assessment Noted Time A fall risk assessment has been complete d for the patient 08/04/2024 1:19 PM EDT documented as of this encounter Care Teams Burr Bench Operator Relationship Specialty Start Date End Date Tonio Marin DO [address] [place] [address] PCP - General Family Medicine 07/10/23 documented as of this encounter
--- OUTSIDE RECORDS SUMMARY | 2025-08-05 07:54 | XMS_ITS | Encounter Summary ---
Author Organization [facility] Address [facility] [place] [address] Care Team Providers Care Director Government Name Role Phone Tonio Marin DO Primary Care Provider [phone] Sera Forbes REFERRAL SPECIALIST Unavailable Unavailable Nick Anderson MD Unavailable Unavail able Dania Key MD Unavailable [phone] Andree Rome APRN.SENIOR PROGRAM MANAGER Unavailable [phone] Denisha Duarte RN Unavailable [phone] Laurel Ríos RN Unavailable Unavailable Source Comments In the event this information is protected by the Federal Confidentiality of Alcohol and Drug AbusePatient Records regulations: The Federal rules restrict any use of the information to criminally investigate or prosecute any alcohol or drug abuse patient.[facility] Encounter Details Date Type Department Care Team (Late st Contact Info) Description 11/04/2023 GI Preprocedure Call [facility] [address] [place], [place] [id number] Tonio Marin DO [address] [place] [address] Social History Tobacco Use Types Packs/Day Years Used Date Smoking Tobacco: Never Passive Smoke Exposure: Never Smokeless Tobacco: Never Alcohol Use Standard Drinks/Week Comments Yes 0 (1 standard drink = 0.6 oz pur e alcohol) rarely PHQ-2 Answer Date Recorded PHQ-2 score 0 08/25/2023 Area Deprivation Index Answer Date Zander rded National Score (1-100), lower number is lower ri sk 53 02/21/2023 State Score (1-10), lower number is lower risk 3 02/21/2023 Data from: https://www.neighborhoodatlas.medicine.[facility].edu/. Last address used for calculation [address] [...] Hematology/Oncolog y [address] [place] [address] B12 09/29/2025 10:45 AM EST Infusion Center Hematology/Oncolog y [address] [place] [address] B12 10/08/2025 10:00 AM EST Office Visit Colorectal Surgery [address] [place], [place] [address] [place] [address] [place], [place] [address] F/up per Dr. Ospina 10/27/2025 10:45 AM EST Infusion Center Hematology/Oncolog y [address] [place] [address] B12 11/24/2025 10:45 AM EST Infusion Center Hematology/Oncolog y [address] [place] [address] B12 12/22/2025 10:30 AM EST Infusion Center Hematology/Oncolog y [address] [place] [address] 6 MONTH FOLLOW UP 12/22/2025 11:00 AM EST Visit (SP) Office Hematology/Oncolog y [address] [place] [address] Andree Rome, AZAEL.SENIOR PROGRAM MANAGER [address] [place] [address] 6 MONTH FOLLOW UP 12/22/2025 11:30 AM EST Infusion Center Hematology/Oncolog y [address] [place] [address] 6 MONTH FOLLOW UP 07/12/2026 8:15 AM EDT Appointment Radiology Pet CT [address] [place] [address] CT CAP W IV 07/18/2026 2:40 PM EDT Visit (SP) Office Hematology/Oncolog y [address] [place] [address] Jamari Phillip MD [address] [place] [address] 1 YEAR FOLLOW UP AFTER CT SCAN documented as of this encounter Visit Diagnoses Not on filedocumented in this encounter Care Teams Director Government Relationship Specialty Start Date End Date Tonio Marin DO PCP - General Family Medicine 04/16/13 Sera Forbes LSW Official Greeter 09/26/22 Nick Anderson MD Physician Hematology/Oncology 10/01/22 04/23/25 Dania Key MD [facility] [place] [address] [place] [address] Physician Radiation Oncology 10/01/22 Andree Rome APRN.SENIOR PROGRAM MANAGER [facility] [place] [place] [address] Nurse Practitioner Hematology/Oncology 10/01/22 Denisha Duarte, RN [address] [place] [address] [place] [address] Specialty Inbound Call Center Agent Hematology/Oncology 10/01/22 08/11/24 Laurel Ríos, RN Specialty Inbound Call Center Agent Colon and Rectal Surgery 02/18/23 02/19/28 documented as of this encounter
--- OUTSIDE RECORDS SUMMARY | 2025-08-05 07:54 | XMS_ITS | Encounter Summary ---
Author Organization [facility] Address [address] [place] [address] Care Team Providers Care Tool Repair Technician Name Role Phone Tonio Marin DO Primary Care Provider [phone] Sera Forbes Unavailable Unavailable Nick Anderson MD Unavailable Unavail able Dania Key MD Unavailable [phone] Andree Rome APRN.STORAGE ENGINEER Unavailable [phone] Denisha Duarte RN Unavailable Laurel Ríos RN Unavailable Unavailable Source Comments In the event this information is protected by the Federal Confidentiality of Alcohol and Drug AbusePatient Records regulations: The Federal rules restrict any use of the information to criminally investigate or prosecute any alcohol or drug abuse patient.[facility] Encounter Details Date Type Department Care Team (Late st Contact Info) Description 09/06/2023 Patient Msg Colorectal Surgery [address] [place] [address] Provider, [facility] sigmoidoscopy instructions Social History Tobacco Use Types Packs/Day Years [...] is lower risk 3 02/21/2023 Data from: https://www.neighborhoodatlas.[facility]/. Last address used for calculation [address] [...] y [address] [place] [address] B12 09/29/2025 10:45 AM EST Infusion Center Hematology/Oncolog y [address] [place] [address] B12 10/08/2025 10:00 AM EST Office Visit Colorectal Surgery [address] [place], [place] [address] [place] [address] [place], [place] [address] F/up per Dr. Ospina 10/27/2025 10:45 AM EST Infusion Center Hematology/Oncolog y [address] [place] [address] B12 11/24/2025 10:45 AM EST Infusion Center Hematology/Oncolog y [address] [place] [address] B12 12/22/2025 10:30 AM EST Infusion Center Hematology/Oncolog y [address] [place] [address] 6 MONTH FOLLOW UP 12/22/2025 11:00 AM EST Visit (SP) Office Hematology/Oncolog y [address] [place] [address] Andree Rome, SANITATION WORKER HOSING MACHINERY.STORAGE ENGINEER [address] [place] [address] 6 MONTH FOLLOW UP 12/22/2025 11:[address] [facility] Hematology/Oncolog y [address] [place] [address] 6 MONTH FOLLOW UP 07/12/2026 8:15 AM EDT Appointment Radiology Pet CT [address] [place] [address] CT CAP W IV 07/18/2026 2:40 PM EDT Visit (SP) Office Hematology/Oncolog y [address] [place] [address] Jamari Phillip MD [address] [place] [address] 1 YEAR FOLLOW UP AFTER CT SCAN documented as of this encounter Visit Diagnoses Not on filedocumented in this encounter Care Teams Tool Repair Technician Relationship Specialty Start Date End Date Tonio Marin DO PCP - General Family Medicine 04/16/13 Sera Forbes LSW Medical Officer 09/26/22 Nick Anderson MD Physician Hematology/Oncology 10/01/22 04/23/25 Dania Key MD [address] [place] [address] [place] [address] Physician Radiation Oncology 10/01/22 Andree Rome, AZAEL.STORAGE ENGINEER [address] [place] [address] [place] [address] Nurse Practitioner Hematology/Oncology 10/01/22 Denisha Duarte, ALEXUS [address] [place] [address] Specialty Drum Sander Setter Hematology/Oncology 10/01/22 08/11/24 Laurel Ríos, RN Specialty Drum Sander Setter Colon and Rectal Surgery 02/18/23 02/19/28 documented as of this encounter
--- OUTSIDE RECORDS SUMMARY | 2025-08-05 07:54 | XMS_ITS | Clinical Summary ---
Author Organization [facility] Address [address] [place] [address] Care Team Providers Care Manager Of Sustainability Name Role Phone Tonio Marin DO Primary Care Provider Allergies No known active allergies Medications METHOTREXATE, ANTI-RHEUMATIC, PO take 1 mg by mouth once a week.. 4 tablets Active FOLIC ACID PO take 5 mg by mouth daily.. Active Leflunomide (ARAVA PO) take 5 mg by mouth daily.. Active Active Problems No known active problems Social History Tobacco Use Types Packs/Day Years Used Date Smoking Tobacco: Never Smokeless Tobacco: Never Alcohol Use Standard Drinks/Week Comments Yes 1 (1 standard drink = 0.6 oz pur e alcohol) weekly Sex and Gender Information Value Date Recorded Sex Assigned at Not on file Legal Sex Male 11:41 AM EDT Gender Identity Male Sexual Orientation Not on file Last Filed Vital Signs Vital Sign Reading Time Taken Comments Blood Pressure 142/93 04/01/2017 10:38 AM EDT Pulse 73 04/01/2017 10:38 AM EDT Temperature 36.5 C (97.7 F) 04/01/2017 10:03 AM EDT Respiratory Rate 20 04/01/2017 10:18 AM EDT Oxygen Saturation 96% 04/01/2017 10:38 AM EDT Inhaled Oxygen Concentration - - Weight 104.8 kg (231 lb) 04/01/2017 8:54 AM EDT Height 187.9 cm (6' 1.98 ) 04/01/2017 8:54 AM ED T Body Mass Index 29.68 04/01/2017 8:54 AM EDT Plan of Treatment Health Maintenance Due Date Last Done Comments HEPATITIS C VIRUS SCREENING 1952 TETANUS 1952 TDAP (ADULT) 1971 LIPID SCREENING 1992 COLORECTAL CANCER SCREENING DISCUSSION 1997 PNEUMOCOCCAL VACCINE SERIES (1 of 1 - PCV) 2002 ZOSTER (SHINGLES) VACCINE (1 of 2) 2002 COVID-19 VACCINE (1 - 2024-2 6 season) 2025 INFLUENZA VACCINE (#1) 2025 RSV VACCINE (1 - 1-dose 75+ series) 2027 HEP B VACCINE Aged Out No longer elig ible based on patient's age to complete this topic Insurance MMO Care Teams Manager Of Sustainability Relationship Specialty Start Date End Date Tonio Marin DO [address] [place] [address] PCP - General Family Medicine 03/29/17
--- OUTSIDE RECORDS SUMMARY | 2025-08-05 07:54 | XMS_ITS | Clinical Summary ---
Author Organization [facility] Address [address] [place] [address] Phone Care Team Providers Care Boiler Tender Name Role Phone Unavailable Primary Care Provider Unavailabl e Social History Tobacco Use Types Packs/Day Years Used Date Smoking Tobacco: Never Assessed Sex and Gender Information Value Date Recorded Sex Assigned at Not on file Legal Sex Male 9:25 PM EST Gender Identity Not on file Sexual Orientation Not on file Plan of Treatment Not on file
--- OUTSIDE RECORDS SUMMARY | 2025-08-05 07:54 | XMS_ITS | Encounter Summary ---
Author Organization [facility] Address [address], [address] [place] [address] Care Team Providers Care Stone Banker Name Role Phone Tonio Marin DO Primary Care Provider [phone] Encounter Details Date Type Department Care Team (Late st Contact Info) Description 02/17/2024 Orders Only [facility] Primary and Specialty Care [address] [place] [address] Provider, MD Vikas Social History [...] care, and heating? Not hard at all 07/10/2023 PHQ-2 Answer Date Recorded PHQ-9 Total Score 0 07/10/2023 Hunger Vital Sign Answer Date Recorded Within the past 12 months, y ou worried that your food would run out before you got the money to buy more. Never true 07/10/20 23 Within the past 12 months, t he food you bought just didn't last and you didn't have money to get more. Never true 07/10/2023 PRAPARE - Transportation Answer Date Re corded Lack of Transportation (Medical) Not on file 07/10/2023 In the past 12 months, has l ack of transportation kept you from meetings, work, or from getting things needed for daily living? No 07/10/2023 Housing Stability Vital Sign Answer [...] in a [facility] (including now)? No 07/10/2023 Food Insecurity Answer Date Recorded Within the past 12 months, y ou worried that your food would run out before you got the money to buy more. 1 07/10/2023 Within the past 12 months, t he food you bought just didn't last and you didn't have money to get more. 1 07/10/2023 Sex and Gender Information Value Date Recorded Sex Assigned at Male 12/14/2024 9:10 AM EST Legal Sex Male 4:19 PM EDT Gender Identity Male 12/14/2024 9:10 AM EST Sexual Orientation Straight 12/14/2024 9: 10 AM EST documented as of this encounter Plan of Treatment Upcoming Encounters Date Type Department Care Team (Late st Contact Info) Description 01/24/2026 7:30 AM EDT Office Visit [facility] Primary Care [address] [place] [address] Tonio Marin DO [address] [place] [address] Annual f/u 03/15/2026 2:00 PM EDT Office Visit [facility] Pulmonology [address] [place] [address] [place] [address] [place] [address] 1 yr f/u documented as of this encounter Procedures Procedure Name Priority Date/Time Associated Diagnosis Comments PSA Routine 02/14/2024 11:52 AM EDT documented in this encounter Results * PSA (02/14/2024 11:52 AM EDT) Blood BLOOD SPECIMEN / Unknown us Historical Provider CHEMISTRY ORDERABLES Nilda l Result documented in this encounter Visit Diagnoses Not on filedocumented in this encounter Additional Health Concerns Assessment Noted Time A fall risk assessment has been complete d for the patient 07/10/2023 3:29 PM EDT documented as of this encounter Care Teams Stone Banker Relationship Specialty Start Date End Date Tonio Marin DO [address] [place] [address] PCP - General Family Medicine 07/10/23 documented as of this encounter
--- OUTSIDE RECORDS SUMMARY | 2025-08-05 07:54 | XMS_ITS | Encounter Summary ---
Author Organization [facility] Address [address] [place] [address] Care Team Providers Care Vice President And Portfolio Manager Name Role Phone Tonio Marin DO Primary Care Provider [phone] Sera Forbes Unavailable Unavailable Dania Key MD Unavailable [phone] Andree Rome APRN.FELLMONGERY WORKER Unavailable Laurel Ríos RN Unavailable Unavailable Source Comments In the event this information is protected by the Federal Confidentiality of Alcohol and Drug AbusePatient Records regulations: The Federal rules restrict any use of the information to criminally investigate or prosecute any alcohol or drug abuse patient.[facility] Reason for Visit * Reason Comments Appointment Encounter Details Date Type Department Care Team (Late st Contact Info) Description 07/20/2025 Telephone Cancer Appts [facility] [place] [address] Jamari Phillip MD [facility] [place] [address] Appointment Social History Tobacco Use Types Packs/Day Years Used Date Smoking Tobacco: Never Passive Smoke Exposure: Never Smokeless Tobacco: Never Alcohol Use Standard Drinks/Week Comments Yes 0 (1 standard drink = 0.6 oz pur e alcohol) 1 beer daily [facility] Utilities Answer Date Recorded In the [...] any time in the past 12 m [facility], were you homeless or living in a usp (including now)? No 08/17/2024 Area Deprivation Index Answer Date Zander rded National Score (1-100), lower number is lower ri sk 53 02/21/2023 State Score (1-10), lower number is lower risk 3 02/21/2023 Data from: https://www.neighborhoodatlas.medicine.[facility].edu/. Last address used for calculation [address] [...] Geni Rothman RN documented in this encounter Miscellaneous Notes * Telephone Encounter - Sade Ruiz - 07/23/2025 9:26 AM EDT Patient is scheduled for his next B12 on 08/17/25 and is aware that he can have them monthly. Sade Ruiz * Telephone Encounter - Minal Corey RN - 07/22/2025 9:09 AM EDT Pt aware of labs results and recommendation for monthly B12. Iron labs normal. Tasha/Lucina: Please call to arrange Minal Corey RN * Telephone Encounter - Marie Diaz PA-C - 07/22/2025 8:37 AM EDT Yes. Marie Diaz PA-C * Telephone Encounter - Minal Corey RN - 07/22/2025 8:17 AM EDT Normal Iron results. B12 low, 193. Destiny: begin monthly B12 injections? Minal Corey RN * Telephone Encounter - Rashmi Lerner - 07/21/2025 2:40 PM EDT I have him scheduled for the 6 month follow up, and then the CT and RV with DESTINY in 1 year. If anything else needs added in the meantime. Rashmi Lerner * Telephone Encounter - Minal Corey RN - 07/20/2025 1:17 PM EDT Triage please call pending lab results- he had a B12 shot on 07/19 and may need another in 4 weeks. Based on iron studies may have him back for iron. Otherwise will need repeat CT in 1 year but will need return in 6 months with labs in the meanwhile. All orders are in [facility] * Telephone Encounter - Rashmi Lerner - 07/20/2025 9:04 AM EDT Images from the original note were not included. When does patient need to return for follow up? Rashmi Lerner documented in this encounter Plan of Treatment Upcoming Encounters Date Type Department Care Team (Late st Contact Info) Description 09/01/2025 10:45 AM EST Infusion Center Hematology/Oncolog y [address] [place] [address] B12 09/29/2025 10:45 AM EST Infusion Center Hematology/Oncolog y [address] [place] [address] B12 10/08/2025 10:00 AM EST Office Visit Colorectal Surgery [address] [place] [address] [place] [address] [place] [address] F/up per Dr. Ospina 10/27/2025 10:45 AM EST Infusion Center Hematology/Oncolog y [address] [place] [address] B12 11/24/2025 10:45 AM EST Infusion Center Hematology/Oncolog y [address] [place] [address] B12 12/22/2025 10:30 AM EST Infusion Center Hematology/Oncolog y [address] [place] [address] 6 MONTH FOLLOW UP 12/22/2025 11:00 AM EST Visit (SP) Office Hematology/Oncolog y [address] [place] [address] Andree Rome, AZAEL.FELLMONGERY WORKER [address] [place] [address] 6 MONTH FOLLOW UP 12/22/2025 11:30 AM EST Infusion Center Hematology/Oncolog y [address] [place] [address] 6 MONTH FOLLOW UP 07/12/2026 8:15 AM EDT Appointment Radiology Pet CT [address] [place] [address] CT CAP W IV 07/18/2026 2:40 PM EDT Visit (SP) Office Hematology/Oncolog y [address] [place] [address] Jamari Phillip MD [address] [place] [address] [address] FOLLOW UP AFTER CT SCAN documented as of this encounter Visit Diagnoses Not on filedocumented in this encounter Care Teams Vice President And Portfolio Manager Relationship Specialty Start Date End Date Tonio Marin DO PCP - General Family Medicine 04/16/13 Sera Forbes LSW Telecommunications Clerk 09/26/22 Dania Key MD [address] [place] [address] Physician Radiation Oncology 10/01/22 Andree Rome APRN.FELLMONGERY WORKER [address] [place] [address] [place] [address] Nurse Practitioner Hematology/Oncology 10/01/22 Laurel Ríos, RN Specialty Surveyor Helper Rod Colon and Rectal Surgery 02/18/23 02/19/28 documented as of this encounter
--- OUTSIDE RECORDS SUMMARY | 2025-08-05 07:54 | XMS_ITS | Encounter Summary ---
Author Organization [facility] Address [address], [address] [place] [address] Care Team Providers Care Clay Processing Factory Worker Name Role Phone Tonio Marin DO Primary Care Provider [phone] Encounter Details Date Type Department Care Team (Late st Contact Info) Description 07/29/2023 Orders Only [facility] [address] [id number] Provider, MD Vikas Social History Tobacco Use [...] place to sleep or slept in a residential (including now)? No 07/10/2023 Food Insecurity Answer [...] Description 01/24/2026 7:30 AM EDT Office Visit [facility] Primary Care [address] [place] [address] Tonio Marin DO [address] [place] [address] Annual f/u 03/15/2026 2:00 PM EDT Office Visit [facility] Pulmonology [address] [place] [address] [place] [address] [place] [address] 1 yr f/u documented as of this encounter Procedures Procedure Name Priority Date/Time Associated Diagnosis Comments HM COLONOSCOPY Routine 04/09/2023 documented in this encounter Results * HM COLONOSCOPY (04/09/2023) Narrative Lillian Martin MA - 04/09/2023 [facility] Gastrointestinal Endoscopy Patient Name: Eron Damon Procedure Date: 04/09/2023 12:15 PM Date of : 1950 Admit Type: Outpatient Age: 72 Room: [place] [address] Gender: Male Note Status: Finalized Attending MD: Elder Ospina MD Procedure: Colonoscopy Indications: High risk colon cancer surveillance: Personal history of rectal cancer Providers: Elder Ospina MD Patient Profile: This is a 72 year old male. Refer to note in patient chart for documentation of history and physical. Last Colonoscopy: date unknown. Referring Physician: Elder Ospina MD (Referring MD) Medicines: Monitored Anesthesia Care [...] the patient. Procedure Code(s): --- Professional --- 56253, Colonoscopy, flexible; with removal of tumor(s), polyp(s), or other lesion(s) by snare technique CPT copyright 2020 [employer]. All rights reserved. The codes documented in this report are preliminary and upon advertisement compositor review may be revised to meet current compliance requirements. Attending Participation: I was present and participated during the entire procedure, including non-tripp portions. Scope In: 12:28:46 PM Scope Out: 1:01:23 PM MD Elder Harper MD 04/09/2023 1:08:30 PM This report has been signed electronically by Elder Ospina MD Number of Addenda: 0 Note Initiated On: 04/09/2023 12:15 PM Estimated Blood Loss: Estimated blood loss was minimal. Exam End: - Specimen Collected: 04/09/23 12:15 Last Resulted: 04/09/23 13:11 Received From: [facility] Result Received: 07/10/23 15:22 View Encounter us Historical Provider [employer] MAINTENANCE Edited Result - Final documented in this encounter Visit Diagnoses Not on filedocumented in this encounter Additional Health Concerns Assessment Noted Time A fall risk assessment has been complete d for the patient 07/10/2023 3:29 PM EDT documented as of this encounter Care Teams Clay Processing Factory Worker Relationship Specialty Start Date End Date Tonio Marin DO [address] [place] [address] PCP - General Family Medicine 07/10/23 documented as of this encounter
--- OUTSIDE RECORDS SUMMARY | 2025-08-05 07:54 | XMS_ITS | Encounter Summary ---
Author Organization [facility] Address [address] [place] [address] Care Team Providers Care Machine Hand Name Role Phone Tonio Marin DO Primary Care Provider [phone] Sera Forbes Unavailable Unavailable Nick Anderson MD Unavailable Unavail able Dania Key MD Unavailable [phone] Andree Rome APRN.COORDINATOR OF LIBRARY SERVICES Unavailable [phone] Denisha Duarte RN Unavailable [phone] Laurel Ríos RN Unavailable Unavailable Source Comments In the event this information is protected by the Federal Confidentiality of Alcohol and Drug AbusePatient Records regulations: The Federal rules restrict any use of the information to criminally investigate or prosecute any alcohol or drug abuse patient.[facility] Encounter Details Date Type Department Care Team (Late st Contact Info) Description 08/27/2023 Patient Msg Colorectal Surgery [address] [place] [address] Provider, [facility] upcoming appt with Dr. Ospina Social History Tobacco Use Types Packs/Day Years [...] is lower risk 3 02/21/2023 Data from: https://www.neighborhoodatlas.[facility]/. Last address used for calculation [address] [...] Hematology/Oncolog y [address] [place] [address] B12 09/29/2025 10:45 AM EST Infusion Center Hematology/Oncolog y [address] [place] [address] B12 10/08/2025 10:00 AM EST Office Visit Colorectal Surgery [address] [place], [place] [phone] [place] [address] [place], [place] [phone] F/up per Dr. Ospina 10/27/2025 10:45 AM EST Infusion Center Hematology/Oncolog y [address] [place] [address] B12 11/24/2025 10:45 AM EST Infusion Center Hematology/Oncolog y [address] [place] [address] B12 12/22/2025 10:30 AM EST Infusion Center Hematology/Oncolog y [address] [place] [address] 6 MONTH FOLLOW UP 12/22/2025 11:00 AM EST Visit (SP) Office Hematology/Oncolog y [address] [place] [address] Andree Rome, BISTRO ATTENDANT.COORDINATOR OF LIBRARY SERVICES [address] [place] [address] 6 MONTH FOLLOW UP 12/22/2025 11:30 AM [facility] Hematology/Oncolog y [address] [place] [address] 6 MONTH FOLLOW UP 07/12/2026 8:15 AM EDT Appointment Radiology Pet CT [address] [place] [address] CT CAP W IV 07/18/2026 2:40 PM EDT Visit (SP) Office Hematology/Oncolog y [address] [place] [address] Jamari Phillip MD [address] [facility] [place] [address] [address] FO[address] UP AFTER CT SCAN documented as of this encounter Visit Diagnoses Not on filedocumented in this encounter Care Teams Machine Hand Relationship Specialty Start Date End Date Tonio Marin DO PCP - General Family Medicine 04/16/13 Sera Forbes LSW Service Center Supervisor 09/26/22 Nick Anderson MD Physician Hematology/Oncology 10/01/22 04/23/25 Dania Key MD [address] [place] [address] [place] [address] Physician Radiation Oncology 10/01/22 Andree Rome, AZAEL.COORDINATOR OF LIBRARY SERVICES [address] [place] [address] [place] [address] Nurse Practitioner Hematology/Oncology 10/01/22 Denisha Duarte, ALEXUS [address] [place] [address] [place] [address] Specialty Quality Control Tester Hematology/Oncology 10/01/22 08/11/24 Laurel Ríos, RN Specialty Quality Control Tester Colon and Rectal Surgery 02/18/23 02/19/28 documented as of this encounter
--- OUTSIDE RECORDS SUMMARY | 2025-08-05 07:54 | XMS_ITS | Encounter Summary ---
Author Organization [facility] Address [address] [place] [address] Care Team Providers Care Perfect Binder Setter Name Role Phone TomasTonio Aism HERNANDEZ Primary Care Provider [phone] Sera Forbes Unavailable Unavailable Nick Anderson MD Unavailable Unavail able Dania Key MD Unavailable [phone] Andree Rome APRN.LEHR TENDER Unavailable [phone] Laurel Ríos RN Unavailable Unavailable Source Comments In the event this information is protected by the Federal Confidentiality of Alcohol and Drug AbusePatient Records regulations: The Federal rules restrict any use of the information to criminally investigate or prosecute any alcohol or drug abuse patient.[facility] Encounter Details Date Type Department Care Team (Late st Contact Info) Description 11/23/2024 GI Preprocedure Call [facility] Surgery [address] [place], [place] [phone] [place] [address] [place], [place] [phone] Social History Tobacco Use Types Packs/Day Years Used Date Smoking Tobacco: Never Passive Smoke Exposure: Never Smokeless Tobacco: Never Alcohol Use Standard Drinks/Week Comments Yes 0 (1 standard drink = 0.6 oz pur e alcohol) rarely [facility] Utilities Answer Date Recorded In the past 12 months has th e electric, gas, oil, or water company threatened to shut off services in your home? No 08/17/2024 PHQ-2 Answer Date Recorded PHQ-2 score 2 09/05/2024 Hunger Vital Sign Answer Date Recorded Within [...] any time in the past 12 m [facility], were you homeless or living in a [place] [facility] facility (including now)? No 08/17/2024 Area Deprivation Index Answer Date Zander rded National Score (1-100), lower number is lower ri sk 53 02/21/2023 State Score (1-10), lower number is lower risk 3 02/21/2023 Data from: https://www.neighborhoodatlas.medicine.[facility].edu/. Last address used for calculation [...] Hematology/Oncolog y [address] [place] [address] B12 09/29/2025 10:45 AM EST Infusion Center Hematology/Oncolog y [address] [place] [address] B12 10/08/2025 10:00 AM EST Office Visit Colorectal Surgery [address] [place] [address] [place] [address] [place], [place] [phone] F/up per Dr. Ospina 10/27/2025 10:45 AM EST Infusion Center Hematology/Oncolog y [address] [place] [address] B12 11/24/2025 10:45 AM EST Infusion Center Hematology/Oncolog y [address] [place] [address] B12 12/22/2025 10:30 AM EST Infusion Center Hematology/Oncolog y [address] [place] [address] 6 MONTH FOLLOW UP 12/22/2025 11:00 AM EST Visit (SP) Office Hematology/Oncolog y [address] [place] [address] Andree Rome, SCREW MACHINE SET UP OPERATOR TOOL.LEHR TENDER [address] [place] [address] 6 MONTH FOLLOW UP 12/22/2025 11:30 AM EST Infusion Center Hematology/Oncolog y [address] [place] [address] 6 MONTH FOLLOW UP 07/12/2026 8:15 AM EDT Appointment Radiology Pet CT [address] [place] [address] CT CAP W IV 07/18/2026 2:40 PM EDT Visit (SP) Office Hematology/Oncolog y [address] [place] [address] Jamari Phillip MD [address] [place] [address] 1 YEAR FOLLOW UP AFTER CT SCAN documented as of this encounter Visit Diagnoses Not on filedocumented in this encounter Care Teams Perfect Binder Setter Relationship Specialty Start Date End Date Tonio Marin DO PCP - General Family Medicine 04/16/13 Sera Forbes LSW Drier Helper 09/26/22 Nick Anderson MD Physician Hematology/Oncology 10/01/22 04/23/25 Dania Key MD [facility] [place] [address] Physician Radiation Oncology 10/01/22 Andree Rome, AZAEL.LEHR TENDER [address] [place] [address] [place] [address] Nurse Practitioner Hematology/Oncology 10/01/22 Laurel Ríos, RN Specialty Export Agent Colon and Rectal Surgery 02/18/23 02/19/28 documented as of this encounter
--- OUTSIDE RECORDS SUMMARY | 2025-08-05 07:54 | XMS_ITS | Encounter Summary ---
Author Organization [facility] Address [address], [address] [place] [address] Care Team Providers Care Oracle Database Administrator Name Role Phone Tonio Marin DO Primary Care Provider [phone] Encounter Details Date Type Department Care Team (Late st Contact Info) Description 07/24/2024 Orders Only [facility] Primary and Specialty Care [address] [place] [address] Provider, MD Vikas Social History [...] place to sleep or slept in a long-term (including now)? No 07/10/2023 Food Insecurity Answer [...] Description 01/24/2026 7:30 AM EDT Office Visit [facility] Primary Care [address] [place] [address] Tonio Marin DO [address] [place] [address] Annual f/u 03/15/2026 2:00 PM EDT Office Visit [facility] Pulmonology [address] [place] [address] [place] [address] [place] [address] 1 yr f/u documented as of this encounter Procedures Procedure Name Priority Date/Time Associated Diagnosis Comments CT ABDOMEN PELVIS W CONTRAST Routine 07/22/2024 9:26 AM EDT documented in this encounter Results * CT abdomen pelvis w contrast (07/22/2024 9:26 AM EDT) Anatomical Region Laterality Modality Computed Tomogra phy us Historical Provider MD SANDERSON CT ORDERABLES Final R esult documented in this encounter Visit Diagnoses Not on filedocumented in this encounter Additional Health Concerns Assessment Noted Time A fall risk assessment has been complete d for the patient 07/10/2023 3:29 PM EDT documented as of this encounter Care Teams Oracle Database Administrator Relationship Specialty Start Date End Date Tonio Marin DO [address] [place] [address] PCP - General Family Medicine 07/10/23 documented as of this encounter
--- OUTSIDE RECORDS SUMMARY | 2025-08-05 07:54 | XMS_ITS | Encounter Summary ---
Author Organization [facility] Address [address] [place] [address] Care Team Providers Care Business Objects Report Developer Name Role Phone Tonio Marin DO Primary Care Provider [phone] Sera Forbes Unavailable Unavailable Nick Anderson MD Unavailable Unavail able Dania Key MD Unavailable [phone] Andree Rome APRN.HEDIS REVIEW NURSE Unavailable [phone] Laurel Ríos RN Unavailable Unavailable Source Comments In the event this information is protected by the Federal Confidentiality of Alcohol and Drug AbusePatient Records regulations: The Federal rules restrict any use of the information to criminally investigate or prosecute any alcohol or drug abuse patient.[facility] Encounter Details Date Type Department Care Team (Late st Contact Info) Description 12/29/2024 Patient Msg Pre Anesthesia [address] [place] [address] Provider, Ccf PACC Social History Tobacco Use Types Packs/Day Years Used Date Smoking Tobacco: Never Passive Smoke Exposure: Never Smokeless Tobacco: Never Alcohol Use Standard Drinks/Week Comments Yes 0 (1 standard drink = 0.6 oz pur e alcohol) rarely [facility] Utilities Answer Date Recorded In the [...] any time in the past 12 m [facility], were you homeless or living in a usp (including now)? No 08/17/2024 Area Deprivation Index Answer Date Zander rded National Score (1-100), lower number is lower ri sk 53 02/21/2023 State Score (1-10), lower number is lower risk 3 02/21/2023 Data from: https://www.neighborhoodatlas.medicine.[facility].edu/. Last address used for calculation [address] [...] Hematology/Oncolog y [address] [place] [address] B12 09/29/2025 10:45 AM EST Infusion Center Hematology/Oncolog y [address] [place] [address] B12 10/08/2025 10:00 AM EST Office Visit Colorectal Surgery [address] [place] [address] [place] [address] [place] [address] F/up per Dr. Ospina 10/27/2025 10:45 AM EST Infusion Center Hematology/Oncolog y [address] [place] [address] B12 11/24/2025 10:45 AM EST Infusion Center Hematology/Oncolog y [address] [place] [address] B12 12/22/2025 10:30 AM EST Infusion Center Hematology/Oncolog y [address] [place] [address] 6 MONTH FOLLOW UP 12/22/2025 11:00 AM EST Visit (SP) Office Hematology/Oncolog y [address] [place] [address] Andree Rome, AZAEL.HEDIS REVIEW NURSE [address] [place] [address] 6 MONTH FOLLOW UP 12/22/2025 11:30 AM EST Infusion Center Hematology/Oncolog y [address] [place] [address] 6 MONTH FOLLOW UP 07/12/2026 8:15 AM EDT Appointment Radiology Pet CT [address] [place] [address] CT CAP W IV 07/18/2026 2:40 PM EDT Visit (SP) Office Hematology/Oncolog y [address] [place] [address] Jamari Phillip MD [facility] [place] [address] [place] [address] [address] UP AFTER CT SCAN documented as of this encounter Visit Diagnoses Not on filedocumented in this encounter Care Teams Business Objects Report Developer Relationship Specialty Start Date End Date Tomas Tonio DO Asim PCP - General Family Medicine 04/16/13 Sera Forbes LSW It Integration Architect 09/26/22 Nick Anderson MD Physician Hematology/Oncology 10/01/22 04/23/25 Dania Key MD [facility] [place] [place] [address] Physician Radiation Oncology 10/01/22 Andree Rome APRN.HEDIS REVIEW NURSE [facility] [place] [place] [address] Nurse Practitioner Hematology/Oncology 10/01/22 Laurel Ríos, RN Specialty Food Assembler Kitchen Colon and Rectal Surgery 02/18/23 02/19/28 documented as of this encounter
--- OUTSIDE RECORDS SUMMARY | 2025-08-05 07:54 | XMS_ITS | Encounter Summary ---
Author Organization [facility] Address [address] [place] [address] Care Team Providers Care Green Marketer Name Role Phone Tonio Marin DO Primary Care Provider [phone] Sera Forbes Unavailable Unavailable Nick Anderson MD Unavailable Unavail able Dania Key MD Unavailable [phone] Andree Rome APRN.SALESPERSON FASHION ACCESSORIES Unavailable Denisha Duarte RN Unavailable [phone] Laurel Ríos RN Unavailable Unavailable Source Comments In the event this information is protected by the Federal Confidentiality of Alcohol and Drug AbusePatient Records regulations: The Federal rules restrict any use of the information to criminally investigate or prosecute any alcohol or drug abuse patient.[facility] Encounter Details Date Type Department Care Team (Late st Contact Info) Description 11/05/2023 Patient Msg Colorectal Surgery [address] [place] [address] Provider, Ccyvonne sigmoidoscopy due February 2024 Social History Tobacco Use Types Packs/Day [...] is lower risk 3 02/21/2023 Data from: https://www.neighborhoodatlas.[facility]/. Last address used for calculation [address] [...] y [address] [place] [address] B12 09/29/2025 10:45 AM EST Infusion Center Hematology/Oncolog y [address] [place] [address] B12 10/08/2025 10:00 AM EST Office Visit Colorectal Surgery [address] [place], [place] [address] [place] [address] [place], [place] [address] F/up per Dr. Ospina 10/27/2025 10:45 AM EST Infusion Center Hematology/Oncolog y [address] [place] [address] B12 11/24/2025 10:45 AM EST Infusion Center Hematology/Oncolog y [address] [place] [address] B12 12/22/2025 10:30 AM EST Infusion Center Hematology/Oncolog y [address] [place] [address] 6 MONTH FOLLOW UP 12/22/2025 11:00 AM EST Visit (SP) Office Hematology/Oncolog y [address] [place] [address] Andree Rome, EXECUTIVE PRODUCER PROMOS.SALESPERSON FASHION ACCESSORIES [address] [place] [address] 6 MONTH FOLLOW UP 12/22/2025 11:30 AM [facility] Hematology/Oncolog y [address] [place] [address] 6 MONTH FOLLOW UP 07/12/2026 8:15 AM EDT Appointment Radiology Pet CT [address] [place] [address] CT CAP W IV 07/18/2026 2:40 PM EDT Visit (SP) Office Hematology/Oncolog y [address] [place] [address] Jamari Phillip MD [address] [facility] [place] [address] [address] FOLLOW UP AFTER CT SCAN documented as of this encounter Visit Diagnoses Not on filedocumented in this encounter Care Teams Green Marketer Relationship Specialty Start Date End Date Tonio Marin DO PCP - General Family Medicine 04/16/13 Sera Forbes LSW Milk Tester 09/26/22 Nick Anderson MD Physician Hematology/Oncology 10/01/22 04/23/25 Dania Key MD [address] [place] [address] [place] [address] Physician Radiation Oncology 10/01/22 Andree Rome, AZAEL.SALESPERSON FASHION ACCESSORIES [address] [place] [address] [place] [address] Nurse Practitioner Hematology/Oncology 10/01/22 Denisha Duarte, ALEXUS [address] [place] [address] [place] [address] Specialty Digester Cook Hematology/Oncology 10/01/22 08/11/24 Laurel Ríos, RN Specialty Digester Cook Colon and Rectal Surgery 02/18/23 02/19/28 documented as of this encounter
--- OUTSIDE RECORDS SUMMARY | 2025-08-05 07:54 | XMS_ITS | Encounter Summary ---
Author Organization [facility] Address [address], [address] [place] [address] Care Team Providers Care Morning Show Newscast Producer Name Role Phone Tonio Marin DO Primary Care Provider [phone] Encounter Details Date Type Department Care Team (Late st Contact Info) Description 08/26/2024 Orders Only [facility] Primary and Specialty Care [address] [place] [address] Provider, MD Vikas Social History [...] place to sleep or slept in a custodial (including now)? No 07/10/2023 Housing Stability Vital Sign Answer Brian e Recorded Unable to Pay for Housing in the Last Year Not o n file 08/04/2024 Number of Times Moved in the Last Year Not on fi le 08/04/2024 At any time in the past 12 m [facility], were you homeless or living in a custodial (including now)? No 08/04/2024 Food Insecurity Answer [...] Description 01/24/2026 7:30 AM EDT Office Visit [facility] Primary Care [address] [place] [address] Tonio Marin DO [address] [place] [address] Annual f/u 03/15/2026 2:00 PM EDT Office Visit [facility] Pulmonology [address] [place] [address] [place] [address] [place] [address] 1 yr f/u documented as of this encounter Procedures Procedure Name Priority Date/Time Associated Diagnosis Comments COMPREHENSIVE METABOLIC PANEL Routine 08/24/2024 8:26 AM EST documented in this encounter Results * Comprehensive Metabolic Panel (08/24/2024 8:26 AM EST) Blood BLOOD SPECIMEN / Unknown us Historical Provider CHEMISTRY ORDERABLES Nilda l Result documented in this encounter Visit Diagnoses Not on filedocumented in this encounter Additional Health Concerns Assessment Noted Time A fall risk assessment has been complete d for the patient 08/04/2024 1:19 PM EDT documented as of this encounter Care Teams Morning Show Newscast Producer Relationship Specialty Start Date End Date Tonio Marin DO [address] [place] [address] PCP - General Family Medicine 07/10/23 documented as of this encounter
--- OUTSIDE RECORDS SUMMARY | 2025-08-05 07:54 | XMS_ITS | Encounter Summary ---
Author Organization [facility] Address [address] [place] [address] Care Team Providers Care Networking Engineer Name Role Phone Tonio Marin DO Primary Care Provider Sera Forbes Unavailable Unavailable Nick Anderson MD Unavailable Unavail able Dania Key MD Unavailable [phone] Andree Rome APRN.BOOM STICK MAN Unavailable [phone] Laurel Ríos RN Unavailable Unavailable Source Comments In the event this information is protected by the Federal Confidentiality of Alcohol and Drug AbusePatient Records regulations: The Federal rules restrict any use of the information to criminally investigate or prosecute any alcohol or drug abuse patient.[facility] Encounter Details Date Type Department Care Team (Late st Contact Info) Description 11/03/2024 Patient Msg Colorectal Surgery [address] [place] [address] Provider, Ignacio sigmoidoscopy 11-24-24 Social History Tobacco Use Types Packs/Day Years Used Date Smoking Tobacco: Never Passive Smoke Exposure: Never Smokeless Tobacco: Never Alcohol Use Standard Drinks/Week Comments Yes 0 (1 standard drink = 0.6 oz pur e alcohol) rarely [facility] Utilities Answer Date Recorded In the [...] any time in the past 12 m [facility], were you homeless or living in a fci (including now)? No 08/17/2024 Area Deprivation Index Answer Date Zander rded National Score (1-100), lower number is lower ri sk 53 02/21/2023 State Score (1-10), lower number is lower risk 3 02/21/2023 Data from: https://www.neighborhoodatlas.medicine.[facility].edu/. Last address used for calculation [...] Hematology/Oncolog y [address] [place] [address] B12 09/29/2025 10:45 AM EST Infusion Center Hematology/Oncolog y [address] [place] [address] B12 10/08/2025 10:00 AM EST Office Visit Colorectal Surgery [address] [place], [place] [phone] [place] [address] [place], [place] [address] F/up per Dr. Ospina 10/27/2025 10:45 AM EST Infusion Center Hematology/Oncolog y [address] [place] [address] B12 11/24/2025 10:45 AM EST Infusion Center Hematology/Oncolog y [address] [place] [address] B12 12/22/2025 10:30 AM EST Infusion Center Hematology/Oncolog y [address] [place] [address] 6 MONTH FOLLOW UP 12/22/2025 11:00 AM EST Visit (SP) Office Hematology/Oncolog y [address] [place] [address] Andree Rome, AZAEL.BOOM STICK MAN [address] [place] [address] 6 MONTH FOLLOW UP 12/22/2025 11:30 AM EST Infusion Center Hematology/Oncolog y [address] [place] [address] 6 MONTH FOLLOW UP 07/12/2026 8:15 AM EDT Appointment Radiology Pet CT [address] [place] [address] CT CAP W IV 07/18/2026 2:40 PM EDT Visit (SP) Office Hematology/Oncolog y [address] [place] [address] Jamari Phillip MD [address] [place] [address] 1 [address] FOLLOW UP AFTER CT SCAN documented as of this encounter Visit Diagnoses Not on filedocumented in this encounter Care Teams Networking Engineer Relationship Specialty Start Date End Date Tonio Marin DO PCP - General Family Medicine 04/16/13 Sera Forbes LSW Sales Order Specialist 09/26/22 Nick Anderson MD Physician Hematology/Oncology 10/01/22 04/23/25 Dania Key MD [facility] [place] [address] [place] [address] Physician Radiation Oncology 10/01/22 Andree Rome APRN.BOOM STICK MAN [address] [place] [address] Nurse Practitioner Hematology/Oncology 10/01/22 Laurel Ríos, RN Specialty Precision Assembler Bench Colon and Rectal Surgery 02/18/23 02/19/28 documented as of this encounter
--- OUTSIDE RECORDS SUMMARY | 2025-08-05 07:54 | XMS_ITS | Encounter Summary ---
Author Organization [facility] Address [address] [place] [address] Care Team Providers Care Slunk Skinner Name Role Phone Tonio Marin DO Primary Care Provider [phone] Sera Forbes Unavailable Unavailable Nick Anderson MD Unavailable Unavail able Dania Key MD Unavailable [phone] Andree Rome APRN.CONTROLLER OPERATIONS AND HR MANAGER Unavailable [phone] Denisha Duarte RN Unavailable [phone] Laurel Ríos RN Unavailable Unavailable Source Comments In the event this information is protected by the Federal Confidentiality of Alcohol and Drug AbusePatient Records regulations: The Federal rules restrict any use of the information to criminally investigate or prosecute any alcohol or drug abuse patient.[facility] Encounter Details Date Type Department Care Team (Late st Contact Info) Description 10/09/2022 Patient Msg Pre Anesthesia [address] [place] [id number] Provider, Ccf Preoperative Instructions Social History Tobacco Use Types Packs/Day Years Used Date Smoking Tobacco: Never Smokeless Tobacco: Never Alcohol Use Standard Drinks/Week Comments Yes 0 (1 standard drink = 0.6 oz pur e alcohol) rarely PHQ-2 Answer Date Recorded PHQ-2 score 0 10/02/2022 Area Deprivation Index Answer Date Zander rded National Score (1-100), lower number is lower ri sk Not on file 09/28/2020 State Score (1-10), lower number is lower risk N ot on file 09/28/2020 Data from: https://www.neighborhoodatlas.medicine.[facility]/. Last address used for calculation Not on file 09/28/2020 Sex and Gender Information Value Date Recorded Sex Assigned at Not on file Legal Sex Male 9:37 AM EDT Gender Identity Not on file Sexual Orientation Not on file COVID-19 Exposure Response Date Recorded In the last 10 days, have yo u been in contact with someone who was confirmed or suspected to have Coronavirus/COVID-19? No / Unsure 09/24/2022 11:34 AM EST documented as of this encounter Plan of Treatment Upcoming Encounters Date Type Department Care Team (Late st Contact Info) Description 09/01/2025 10:45 AM EST Infusion Center Hematology/Oncolog y [address] [place] [address] B12 09/29/2025 10:45 AM EST Infusion Center Hematology/Oncolog y [address] [place] [address] B12 10/08/2025 10:00 AM EST Office Visit Colorectal Surgery [address] [place] [id number] [place] [address] [place], [place] [address] F/up per Dr. Ospina 10/27/2025 10:45 AM EST Infusion Center Hematology/Oncolog y [address] [place] [address] B12 11/24/2025 10:45 AM EST Infusion Center Hematology/Oncolog y [address] [place] [address] B12 12/22/2025 10:30 AM EST Infusion Center Hematology/Oncolog y [address] [place] [address] 6 MONTH FOLLOW UP 12/22/2025 11:00 AM EST Visit (SP) Office Hematology/Oncolog y [address] [place] [address] Andree Rome, AZAEL.CONTROLLER OPERATIONS AND HR MANAGER [address] [place] [address] 6 MONTH FOLLOW UP 12/22/2025 11:30 AM EST Infusion Center Hematology/Oncolog y [address] [place] [address] 6 MONTH FOLLOW UP 07/12/2026 8:15 AM EDT Appointment Radiology Pet CT [address] [place] [address] CT CAP W IV 07/18/2026 2:40 PM EDT Visit (SP) Office Hematology/Oncolog y [address] [place] [address] Jamari Phillip MD [facility] [place] [address] [place] [address] 1 YEAR FOLLOW UP AFTER CT SCAN documented as of this encounter Visit Diagnoses Not on filedocumented in this encounter Care Teams Slunk Skinner Relationship Specialty Start Date End Date Tonio Marin DO PCP - General Family Medicine 04/16/13 Sera Forbes LSW Freelance Translator 09/26/22 Nick Anderson MD Physician Hematology/Oncology 10/01/22 04/23/25 Dania Key MD [facility] [place] [place] [address] Physician Radiation Oncology 10/01/22 Andree Rome, AZAEL.CONTROLLER OPERATIONS AND HR MANAGER [facility] [place] [address] [place] [address] Nurse Practitioner Hematology/Oncology 10/01/22 Denisha Duarte, RN [address] [place] [address] [place] [address] Specialty Employment Services Director Hematology/Oncology 10/01/22 08/11/24 Laurel Ríos, RN Specialty Employment Services Director Colon and Rectal Surgery 02/18/23 02/19/28 documented as of this encounter
--- OUTSIDE RECORDS SUMMARY | 2025-08-05 07:54 | XMS_ITS | Encounter Summary ---
Author Organization [facility] Address [address] [place] [address] Care Team Providers Care Radio Equipment Repairer Name Role Phone Tonio Marin DO Primary Care Provider [phone] Sera Forbes Unavailable Unavailable Nick Anderson MD Unavailable Unavail able Dania Key MD Unavailable [phone] Andree Rome APRN.BELT LINE FEEDER Unavailable [phone] Denisha Duarte RN Unavailable [phone] Laurel Ríos RN Unavailable Unavailable Source Comments In the event this information is protected by the Federal Confidentiality of Alcohol and Drug AbusePatient Records regulations: The Federal rules restrict any use of the information to criminally investigate or prosecute any alcohol or drug abuse patient.[facility] Encounter Details Date Type Department Care Team (Late st Contact Info) Description 10/10/2023 Patient Msg Colorectal Surgery [address] [place] [address] Provider, Ccf CEA Social History Tobacco Use Types Packs/Day Years [...] lower risk 3 02/21/2023 Data from: https://www.neighborhoodatlas.[facility]/. Last address used for calculation [address] [...] Hematology/Oncolog y [address] [place] [address] B12 09/29/2025 10:45 AM EST Infusion Center Hematology/Oncolog y [address] [place] [address] B12 10/08/2025 10:00 AM EST Office Visit Colorectal Surgery [address] [place], [place] [address] [place] [address] [place], [place] [address] F/up per Dr. Ospina 10/27/2025 10:45 AM EST Infusion Center Hematology/Oncolog y [address] [place] [address] B12 11/24/2025 10:45 AM EST Infusion Center Hematology/Oncolog y [address] [place] [address] B12 12/22/2025 10:30 AM EST Infusion Center Hematology/Oncolog y [address] [place] [address] 6 MONTH FOLLOW UP 12/22/2025 11:00 AM EST Visit (SP) Office Hematology/Oncolog y [address] [place] [address] Andree Rome APRN.BELT LINE FEEDER [address] [place] [address] 6 MONTH FOLLOW UP 12/22/2025 11:30 AM [facility] Hematology/Oncolog y [address] [place] [address] 6 MONTH FOLLOW UP 07/12/2026 8:15 AM EDT Appointment Radiology Pet CT [address] [place] [address] CT CAP W IV 07/18/2026 2:40 PM EDT Visit (SP) Office Hematology/[place]colog [place] [address] Jamari Phillip MD [address] [place] [address] 1 YEAR FOLLOW UP AFTER CT SCAN documented as of this encounter Visit Diagnoses Not on filedocumented in this encounter Care Teams Radio Equipment Repairer Relationship Specialty Start Date End Date Tonio Marin DO PCP - General Family Medicine 04/16/13 Sera Forbes LSW Accountant Budget 09/26/22 Nick Anderson MD Physician Hematology/Oncology 10/01/22 04/23/25 Dania Key MD [facility] [place] [place] [address] Physician Radiation Oncology 10/01/22 Andree Rome APRN.BELT LINE FEEDER [facility] [place] [address] Nurse Practitioner Hematology/Oncology 10/01/22 Denisha Duarte, ALEXUS [address] [place] [address] [place] [address] Specialty Lodge Attendant Hematology/Oncology 10/01/22 08/11/24 Laurel Ríos, RN Specialty Lodge Attendant Colon and Rectal Surgery 02/18/23 02/19/28 documented as of this encounter
--- OUTSIDE RECORDS SUMMARY | 2025-08-05 07:54 | XMS_ITS | Clinical Summary ---
Author Organization [facility] Address [address], [address] [place] [address] Care Team Providers Care Floating Operator Name Role Phone Tonio Marin DO Primary Care Provider [phone] Allergies No known active allergies Medications valsartan (DIOVAN) 80 MG tablet Take 1 tablet by mouth daily 2 Active tamsulosin (FLOMAX) 0.4 MG capsule Take 1 capsule by mouth 2 times daily 2 Active rivaroxaban (XARELTO) 20 MG TABS tablet Take 1 tablet by mouth Daily with supper 3 Active folic acid (FOLVITE) 1 MG tablet Take 1 tablet by mouth daily 1 Active carvedilol (COREG) 6.25 MG tablet Take 1 tablet by mouth 2 times daily (with meals) 2 Active ascorbic acid (VITAMIN C) 100 MG tablet Take 1 tablet by mouth 2 times daily Active calcium carbonate 600 MG TABS tablet Take 1 tablet by mouth 2 times daily (with meals) Active ketoconazole (NIZORAL) 2 % shampoo 3 Active gabapentin (NEURONTIN) 100 MG capsule Take 1 capsule by mouth daily. 3 Active hydroCHLOROthia zide (MICROZIDE) 12.5 MG capsule Take 1 capsule by mouth every morning 3 Active tadalafil (CIALIS) 20 MG tablet See Instructions, PRN for erectile dysfunction, 1 tab(s) Oral 30-60 mins prior to intercourse. do not exceed 1 tab/24 hrs., # 15 tab(s), Refills(s) 6, [facility]: [id number], 188, cm, 10/24/22 10:33:00 EST, Height/Length Dosing, 112, kg, 10/24/22 1... 30 tablet 3 4 Active tiZANidine (ZANAFLEX) 2 MG tabletIndicatio ns:Right lower quadrant abdominal pain Take 1 tablet by mouth every 8 hours as needed (pain) 30 tablet 5 Active Lidocaine 3 % CREAIndications :Right lower quadrant abdominal pain Apply to affected area daily 85 g 5 Active methylPREDNISol one (MEDROL DOSEPACK) 4 MG tabletIndicatio ns:Mucopurulent chronic bronchitis (HCC) Take by mouth. 1 kit 5 Active predniSONE (DELTASONE) 5 MG tablet TAKE 1 TABLET DAILY 90 tablet 1 5 Active zolpidem (AMBIEN) 5 MG tablet Take 1 tablet by mouth At bedtime as needed. 5 07/10/20 Active Problems Problem Noted Date Diagnosed Date SD (obstructive sleep apnea) 10/04/2024 Mucopurulent chronic bronchitis 08/06/2024 Perforation bowel 07/29/2024 S/P right colectomy 07/29/2024 Pneumoperitoneum 07/23/2024 Rheumatoid arthritis involving multiple sites 07/10/2023 Cervical spinal stenosis 08/22/2022 023 Non-ischemic cardiomyopathy Encounters Date Type Department Care Team Description 06/24/2025 Abstract [facility] [address] [place] [address] [phone] Madeline Luna MA 06/03/2025 Refill [facility] [address] [place] [address] [id number] Tonio Marin, DO Medication Refill from Last 3 Months Immunizations Immunization Administration Dates Next Due COVID-19, Inactive, PFIZER P URPLE top, DILUTE for use, (age 12 y+) 07/10/2023,09/20/2021,12/23/2020,2020,12/02/2020,12/02/2020 Hepatitis B 03/31/1997 Influenza A (P3Z5-20) Vaccine PF IM 10/25/2009 Influenza Virus Vaccine 07/27/2019 Influenza, FLUZONE High Dose (age 65 y+), IM, Quadv, 0.7mL 07/21/2020 Influenza, FLUZONE High Dose , (age 65 y+), IM, Trivalent PF, 0.5mL 07/25/2021 Pneumococcal, PCV-13, PREVNA R 13, (age 6w+), IM, 0.5mL 07/14/2018,07/14/2018 Pneumococcal, PPSV23, PNEUMO VAX 23, (age 2y+), SC/IM, 0.5mL 09/15/2019 Zoster Recombinant (Shingrix) 09/24/2020, 020 Family History Medical History Relation Name Comments Cancer Father lillian gonzáles Arthritis Mother lakesha gonzáles Cancer Mother lakesha gonzáles Relation Name Status Comments Father lillian gonzáles Mother lakesha gonzáles Social History Tobacco Use Types Packs/Day Years Used Date Smoking Tobacco: Never Smokeless Tobacco: Never Tobacco Cessation:Counseling Given: No Alcohol Use Standard Drinks/Week Comments Yes 0 (1 standard drink = 0.6 oz pur e alcohol) occasional [employer] Utilities Answer Date Recorded In the past 12 months has [employer], gas, oil, or water [employer] threatened to shut off services in your home? No 12/15/2024 AUDIT-C Answer Date Recorded Q1: How often do you have a drink containing alc ohol? 2-4 times a month 01/01/2025 Q2: How many drinks containi ng alcohol do you have on a typical day when you are drinking? 1 or 2 01/01/2025 Q3: How often do you have si x or more drinks on one occasion? Never 01/01/2025 Overall Financial Resource Strain (CARDIA) Answe r Date Recorded How hard is it for you to pa y for the very basics like food, housing, medical care, and heating? Not hard at all 08/04/2024 PHQ-2 Answer Date Recorded PHQ-9 Total Score 0 01/01/2025 Exercise Vital Sign Answer Date Recorde d On average, how many days pe r week do you engage in moderate to strenuous exercise (like a brisk walk)? 7 days 01/01/2025 On average, how many minutes do you engage in exercise at this level? 30 min 01/01/2025 Hunger Vital Sign Answer Date Recorded Within the past 12 months, y ou worried that your food would run out before you got the money to buy more. Never true 08/04/20 Within the past 12 months, t he [...] place to sleep or slept in a intermediate (including now)? No 07/10/2023 Housing Stability Vital Sign Answer Brian e Recorded Unable to Pay for Housing in the Last Year Not o n file 12/15/2024 In the past 12 months, how m any times have you moved where you were living? 0 12/15/2024 At any time in the past 12 m [facility], were you homeless or living in a intermediate (including now)? No 12/15/2024 Food Insecurity Answer Date Recorded Within the past 12 months, y ou worried that your food would run out before you got the money to buy more. 1 12/15/2024 Within the past 12 months, t he food you bought just didn't last and you didn't have money to get more. 1 12/15/2024 Sex and Gender Information Value Date Recorded Sex Assigned at Male 12/14/2024 9:10 AM EST Legal Sex Male 4:19 PM EDT Gender Identity Male 12/14/2024 9:10 AM EST Sexual Orientation Straight 12/14/2024 9: 10 AM EST Last Filed Vital Signs Vital Sign Reading Time Taken Comments Blood Pressure 122/68 03/17/2025 1:48 PM EDT Pulse 69 03/17/2025 1:48 PM EDT Temperature 36.6 C (97.8 F) 03/17/2025 1:48 PM EDT Respiratory Rate 17 03/17/2025 1:48 PM EDT Oxygen Saturation 97% 03/17/2025 1:48 PM EDT Inhaled Oxygen Concentration - - Weight 101.6 kg (224 lb) 03/17/2025 1:48 PM EDT Height 188 cm (6' 2.02 ) 03/17/2025 1:48 PM EDT Body Mass Index 28.75 03/17/2025 1:48 PM EDT Plan of Treatment Upcoming Encounters Date Type Department Care Team (Late st Contact Info) Description 01/24/2026 7:30 AM EDT Office Visit [facility] [address] [place] [address] Tonio Marin DO [address] [place] [address] Annual f/u 03/15/2026 2:00 PM EDT Office Visit [facility] Pulmonology [address] [place] [address] [place] [address] [place] [address] 1 yr f/u Health Maintenance Due Date Last Done Comments Hepatitis C screen 1970 DTaP/Tdap/Td vaccine (1 - Tdap) 1971 Lipids 1992 Hepatitis B vaccine (2 of 3 - 19+ 3-dose series) 04/28/1997 03/31/1997 FIT/FOBT: Average risk 1997 Fecal-DNA (Cologuard): Average risk 1997 Sigmoidoscopy/CT colonography 1997 Respiratory Syncytial Virus (RSV) or age 60 yrs+ (1 - Risk 60-74 years 1-dose series) 2012 Shingles vaccine (2 of 2) 11/19/2020 09/24/2020, 02/2020 Flu vaccine (#1) 05/21/2025 07/25/2021, 10/2019, 07/27/2019, Additional history exists COVID-19 Vaccine ( season) 2025 07/10/2023, 09/20/2021, 12/23/2020, Additional history exists Depression Screen 01/01/2026 01/01/2025, 01/01/2025 Annual Wellness Visit (Medicare) 01/02/2026 01/01/2025 Colonoscopy 04/09/2033 04/09/2023 Colorectal Cancer Screen 04/09/2033 Pneumococcal 50+ years Vaccine Completed 09/15/2019, 07/14/2018, 07/14/2018 Hepatitis A vaccine Aged Out No longe r eligible based on patient's age to complete this topic Hib vaccine Aged Out No longer eligi ble based on patient's age to complete this topic Meningococcal (ACWY) vaccine Aged Out No longer eligible based on patient's age to complete this topic Meningococcal B vaccine Aged Out No l onger eligible based on patient's age to complete this topic Polio vaccine Aged Out No longer elig ible based on patient's age to complete this topic Procedures Procedure Name Priority Date/Time Associated Diagnosis Comments COLONOSCOPY Routine 04/09/2023 from Last 3 Months or Most Recently Relevant to Health Maintenance Results * COLONOSCOPY (04/09/2023) Narrative Lillian Martin MA - 04/09/2023 [facility] Gastrointestinal [facility] Patient Name: Eron Gonzáles Procedure Date: 04/09/2023 12:15 PM Date of : 1950 Admit Type: Outpatient Age: 72 Room: [place] [address] Gender: Male Note Status: Finalized Attending MD: [...] the patient. Procedure Code(s): --- Professional --- 58329, Colonoscopy, flexible; with removal of tumor(s), polyp(s), or other lesion(s) by snare technique CPT copyright 2020 [employer]. All rights reserved. The codes documented in this report are preliminary and upon anthropologist review may be revised to meet current [...] 12:15 Last Resulted: 04/09/23 13:11 Received From: [facility] Result Received: 07/10/23 15:22 View Encounter us Historical Provider HEALTH MAINTENANCE Edited Result - Final from Last 3 Months or Most Recently Relevant to Health Maintenance Insurance MEDICARE Member Subscriber Plan / Payer (Ef fective 2017-Present) Name:Eron Gonzáles Relation to Subscriber:Self Name:Eron Gonzáles Payer ID:Not on file Group ID:Not on file Type:Not on file Address: [address] Advance Directives Healthcare Agents on File Name Relationship Healthcare Agent Relationship Communication Mini Nelson Spouse Primary Decision Maker [email or web address] Care Teams Floating Operator Relationship Specialty Start Date End Date Tonio Marin DO [address] [place] [address] PCP - General Family Medicine 07/10/23
--- OUTSIDE RECORDS SUMMARY | 2025-08-05 07:54 | XMS_ITS | Clinical Summary ---
Author Organization [facility] Address [address] [place] [address] Care Team Providers Care Systems Designer Name Role Phone Tonio Marin DO Primary Care Provider [phone] Allergies No known active allergies Medications ascorbic acid (Vitamin C) 1,000 mg tablet Take 1,000 mg by mouth in the morning. 10/22/2019 Active tamsulosin (Flomax) 0.4 mg 24 hr capsule Take 0.4 mg by mouth in the morning and at bedtime. 06/28/2022 Active hydroCHLOROthia zide (HYDRODiuril) 12.5 mg tablet Take by mouth 1 (one) time each day at the same time. Active carvedilol (Coreg) 6.25 mg tablet Take 6.25 mg by mouth every 12 (twelve) hours. 06/26/2022 Active valsartan (Diovan) 80 mg tablet Take 80 mg by mouth 1 (one) time each day at the same time. 06/26/2022 Active folic acid (Folvite) 1 mg tablet Take 1 mg by mouth 1 (one) time each day at the same time. 04/16/2011 Active glucosamine/cho ndro perez A/C/Mn (GLUCOSAMINE-CH ONDROITIN COMPLX ORAL) Take 1,000 mg by mouth in the morning. Active Gavilax 17 gram/dose powder take 17GM (DISSOLVED IN WATER) by mouth once daily 01/02/2022 Active predniSONE (Deltasone) 5 mg tablet Take 5 mg by mouth in the morning. 03/06/2022 Active sildenafil (Revatio) 20 mg tablet if needed. 05/02/2022 Active Active Problems Problem Noted Date Diagnosed Date Rectal bleeding 09/05/2022 Obesity with body mass index 30 or greater 08/22 Rheumatoid arthritis involving multiple sites Anal fissure 08/22/2022 Acquired hammer toe of left foot 08/22/2022 Avascular necrosis 08/22/2022 BPH with urinary obstruction 08/22/2022 Cervical spinal stenosis 08/22/2022 DJD (degenerative joint disease) 08/22/2022 Internal hemorrhoids 08/22/2022 Left hip pain 08/22/2022 Non-ischemic cardiomyopathy 08/22/2022 Peripheral arterial disease 08/22/2022 Rectal mass 08/22/2022 Rectal pain 08/22/2022 Sciatica of left side 08/22/2022 Tobacco non-user 08/22/2022 Internal derangement of right shoulder Pain in joint of right elbow 09/07/2021 Pulmonary embolus with infarction 08/04/2018 Immunizations Immunization Administration Dates Next Due Hep B, adult 03/31/1997 Influenza, High Dose Seasona l, Preservative Free 07/25/2021 Influenza, High-dose Seasona l, Quadrivalent, Preservative Free 07/21/2020 Influenza, Unspecified 07/27/2019 Influenza, injectable, quadr ivalent, preservative free 07/27/2019 Novel [id number], preservative-free 10/25 Pneumococcal Conjugate PCV 13 07/14/2018 Pneumococcal Polysaccharide PPV23 09/15/2019 Unspecified Sars-Cov-2 Vaccination 09/20/2021,,12/02/2020 Zoster, Recombinant 09/24/2020 Family History Medical History Relation Name Comments Thyroid cancer Brother bladder cancer Father Breast cancer Mother Pancreatic cancer Mother Liver cancer Sister Relation Name Status Comments Brother Alive Father Mother Sister Social History Tobacco Use Types Packs/Day Years Used Date Smoking Tobacco: Never Smokeless Tobacco: Never Tobacco Cessation:Counseling Given: Not Answered Alcohol Use Standard Drinks/Week Comments Never 0 (1 standard drink = 0.6 oz pur e alcohol) [place] Safety & Environment Answer Date Rec orded Fear of Current or Ex-Partner Not on file Emotionally Abused Not on file 12/12/2023 Physically Abused Not on file 12/12/2023 Sexually Abused Not on file 12/12/2023 Physically or Sexually Abused Not on file Sex and Gender Information Value Date Recorded Sex Assigned at Not on file Legal Sex Male 12:41 AM EDT Gender Identity Not on file Sexual Orientation Not on file Last Filed Vital Signs Vital Sign Reading Time Taken Comments Blood Pressure 134/94 09/05/2022 11:51 AM EST Pulse 60 09/05/2022 11:51 AM EST Temperature 36.6 C (97.9 F) 09/05/2022 11:51 AM EST Respiratory Rate - - Oxygen Saturation - - Inhaled Oxygen Concentration - - Weight 118 kg (259 lb 6.4 oz) 09/05/2022 11:51 A M EST Height 188 cm (6' 2 ) 09/05/2022 11:51 AM EST Body Mass Index 33.3 09/05/2022 11:51 AM EST Plan of Treatment Health Maintenance Due Date Last Done Comments CT Colonography 1950 Colonoscopy 1950 Colorectal Cancer Screening 1950 FIT-DNA 1950 FIT 1950 FOBT 1950 Medicare Annual Wellness (AWV) 1950 Sigmoidoscopy 1950 Depression Screening 1964 Adult Tetanus 1974 Fall Risk Screening 2017 Zoster Vaccines (2 of 2) 11/19/2020 09/24/2020 COVID-19 Vaccine ( season) 2025 09/20/2021, 12/23/2020, 12/02/2020 Influenza Vaccine (#1) 2025 , 07/21/2020, 07/27/2019, Additional history exists Pneumococcal Vaccine: 50+ Years Completed 09/15/2019, 07/14/2018 HIB Vaccines Aged Out No longer eligi ble based on patient's age to complete this topic HPV Vaccines Aged Out No longer eligi ble based on patient's age to complete this topic IPV Vaccines Aged Out No longer eligi ble based on patient's age to complete this topic Meningococcal B Vaccine Aged Out No l onger eligible based on patient's age to complete this topic Meningococcal Vaccine Aged Out No shila lea eligible based on patient's age to complete this topic Rotavirus Vaccines Aged Out No longer eligible based on patient's age to complete this topic Insurance MEDICARE [employer] Care Teams Systems Designer Relationship Specialty Start Date End Date Tonio Marin DO [address] [place] [address] PCP - General 08/22/22 [place] [address] Surgeon General Surgery 09/12/22
--- OUTSIDE RECORDS SUMMARY | 2025-08-05 07:54 | XMS_ITS | Encounter Summary ---
Author Organization [facility] Address [address] [place] [address] Care Team Providers Care Valuer Name Role Phone Tonio Marin Asim HERNANDEZ Primary Care Provider [phone] Sera Forbes Unavailable Unavailable Nick Anderson MD Unavailable Unavail able Dania Key MD Unavailable [phone] Andree Rome APRN.APPLICATION CONSULTANT Unavailable [phone] Laurel Ríos RN Unavailable Unavailable Source Comments In the event this information is protected by the Federal Confidentiality of Alcohol and Drug AbusePatient Records regulations: The Federal rules restrict any use of the information to criminally investigate or prosecute any alcohol or drug abuse patient.[facility] Encounter Details Date Type Department Care Team (Late st Contact Info) Description 11/13/2024 Patient Msg Hematology/Oncology [address] [facility] [address] Nick Anderson MD Appointment Cancellation Request Social History Tobacco Use Types Packs/Day Years Used Date Smoking Tobacco: Never Passive Smoke Exposure: Never Smokeless Tobacco: Never Alcohol Use Standard Drinks/Week Comments Yes 0 (1 standard drink = 0.6 oz pur e alcohol) rarely [facility] Utilities Answer Date Recorded In the [...] any time in the past 12 m [facility], were you homeless or living in a longterm (including now)? No 08/17/2024 Area Deprivation Index Answer Date Zander rded National Score (1-100), lower number is lower ri sk 53 02/21/2023 State Score (1-10), lower number is lower risk 3 02/21/2023 Data from: https://www.neighborhoodatlas.medicine.[facility].edu/. Last address used for calculation [...] Hematology/Oncolog y [address] [place] [address] B12 09/29/2025 10:45 AM EST Infusion Center Hematology/Oncolog y [address] [place] [address] B12 10/08/2025 10:00 AM EST Office Visit Colorectal Surgery [address] [place], [place] [phone] [place] [address] [place], [place] [phone] F/up per Dr. Ospina 10/27/2025 10:45 AM EST Infusion Center Hematology/Oncolog y [address] [place] [address] B12 11/24/2025 10:45 AM EST Infusion Center Hematology/Oncolog y [address] [place] [address] B12 12/22/2025 10:30 AM EST Infusion Center Hematology/Oncolog y [address] [place] [address] 6 MONTH FOLLOW UP 12/22/2025 11:00 AM EST Visit (SP) Office Hematology/Oncolog y [address] [place] [address] Andree Rome, AZAEL.APPLICATION CONSULTANT [address] [place] [address] 6 MONTH FOLLOW UP 12/22/2025 11:30 AM EST Infusion Center Hematology/Oncolog y [address] [place] [address] 6 MONTH FOLLOW UP 07/12/2026 8:15 AM EDT Appointment Radiology Pet CT [address] [place] [address] CT CAP W IV 07/18/2026 2:40 PM EDT Visit (SP) Office Hematology/Oncolog y [address] [place] [address] Jamari Phillip MD [address] [place] [address] [address] FOLLOW UP AFTER CT SCAN documented as of this encounter Visit Diagnoses Not on filedocumented in this encounter Care Teams Valuer Relationship Specialty Start Date End Date Tonio Marin DO PCP - General Family Medicine 04/16/13 Sera Forbes LSW Tube Dispatcher 09/26/22 Nick Anderson MD Physician Hematology/Oncology 10/01/22 04/23/25 Dania Key MD [facility] [place] [address] [place] [address] Physician Radiation Oncology 10/01/22 Andree Rome APRN.APPLICATION CONSULTANT [address] [place] [address] Nurse Practitioner Hematology/Oncology 10/01/22 Laurel Ríos, RN Specialty Delivery Associate Colon and Rectal Surgery 02/18/23 02/19/28 documented as of this encounter
--- OUTSIDE RECORDS SUMMARY | 2025-08-05 07:54 | XMS_ITS | Encounter Summary ---
Author Organization [facility] Address [address] [place] [address] Care Team Providers Care Web Content Writer Name Role Phone TomasEloyToniosaba Dailey DO Primary Care Provider [phone] Sera Forbes Unavailable Unavailable Nick Anderson MD Unavailable Unavail able Dania Key MD Unavailable [phone] Andree Rome APRN.CARTON MARKER MACHINE Unavailable [phone] Denisha Duarte RN Unavailable [phone] Laurel Ríos RN Unavailable Unavailable Source Comments In the event this information is protected by the Federal Confidentiality of Alcohol and Drug AbusePatient Records regulations: The Federal rules restrict any use of the information to criminally investigate or prosecute any alcohol or drug abuse patient.[facility] Encounter Details Date Type Department Care Team (Late st Contact Info) Description 10/28/2023 Patient Msg Colorectal Surgery [address] [place], [place] [id number] [place] [address] [place], [place] [phone] Sigmoidoscopy Prep Instructions Social History Tobacco Use Types [...] lower risk 3 02/21/2023 Data from: https://www.neighborhoodatlas.medicine.[facility].edu/. Last address used for calculation [address] [...] Hematology/Oncolog y [address] [place] [address] B12 09/29/2025 10:45 AM EST Infusion Center Hematology/Oncolog y [address] [place] [address] B12 10/08/2025 10:00 AM EST Office Visit Colorectal Surgery [address] [place] [address] [place] [address] [place] [address] F/up per Dr. Ospina 10/27/2025 10:45 AM EST Infusion Center Hematology/Oncolog y [address] [place] [address] B12 11/24/2025 10:45 AM EST Infusion Center Hematology/Oncolog y [address] [place] [address] B12 12/22/2025 10:30 AM EST Infusion Center Hematology/Oncolog y [address] [place] [address] 6 MONTH FOLLOW UP 12/22/2025 11:00 AM EST Visit (SP) Office Hematology/Oncolog y [address] [place] [address] Andree Rome, AZAEL.CARTON MARKER MACHINE [address] [place] [address] 6 MONTH FOLLOW UP 12/22/2025 11:30 AM EST Infusion Center Hematology/Oncolog y [address] [place] [address] 6 MONTH FOLLOW UP 07/12/2026 8:15 AM EDT Appointment Radiology Pet [address] [place] [address] CT CAP W IV 07/18/2026 2:40 PM EDT Visit (SP) Office Hematology/Oncolog y [address] [place] [address] Jamari Phillip MD [address] [place] [address] [address] FOLLOW UP AFTER CT SCAN documented as of this encounter Visit Diagnoses Not on filedocumented in this encounter Care Teams Web Content Writer Relationship Specialty Start Date End Date Tonio Marin DO PCP - General Family Medicine 04/16/13 Sera Forbes LSW Trimmer And Reinforcer 09/26/22 Nick Anderson MD Physician Hematology/Oncology 10/01/22 04/23/25 Dania Key MD [address] [place] [address] Physician Radiation Oncology 10/01/22 Andree Rome APRN.CARTON MARKER MACHINE [address] [place] [address] Nurse Practitioner Hematology/Oncology 10/01/22 Denisha Duarte, ALEXUS [address] [place] [address] [place] [address] Specialty Tactical Deception Plans Officer Hematology/Oncology 10/01/22 08/11/24 Laurel Ríos RN Specialty Tactical Deception Plans Officer Colon and Rectal Surgery 02/18/23 02/19/28 documented as of this encounter
--- OUTSIDE RECORDS SUMMARY | 2025-08-05 07:54 | XMS_ITS | Encounter Summary ---
Author Organization [facility] Address [address] [place] [address] Care Team Providers Care Wrap Knitting Machine Operator Name Role Phone Tonio Marin DO Primary Care Provider [phone] Sera Forbes Unavailable Unavailable Nick Anderson MD Unavailable Unavail able Dania Key MD Unavailable [phone] Andree Rome APRN.MANUFACTURING MECHANIC Unavailable [phone] Denisha Duarte RN Unavailable [phone] Laurel Ríos RN Unavailable Unavailable Source Comments In the event this information is protected by the Federal Confidentiality of Alcohol and Drug AbusePatient Records regulations: The Federal rules restrict any use of the information to criminally investigate or prosecute any alcohol or drug abuse patient.[facility] Encounter Details Date Type Department Care Team (Late st Contact Info) Description 10/22/2023 [place] [address] Provider, Ccf Questionnaire Submission Social History Tobacco Use Types Packs/Day Years [...] is lower risk 3 02/21/2023 Data from: https://www.neighborhoodatlas.[facility].edu/. Last address used for calculation [address] [...] y [address] [place] [address] B12 09/29/2025 10:45 AM EST Infusion Center Hematology/Oncolog y [address] [place] [address] B12 10/08/2025 10:00 AM EST Office Visit Colorectal Surgery [address] [place], [place] [id number] [place] [address] [place], [place] [id number] F/up per Dr. Ospina 10/27/2025 10:45 AM EST Infusion Center Hematology/Oncolog y [address] [place] [address] B12 11/24/2025 10:45 AM EST Infusion Center Hematology/Oncolog y [address] [place] [address] B12 12/22/2025 10:30 AM EST Infusion Center Hematology/Oncolog y [address] [place] [address] 6 MONTH FOLLOW UP 12/22/2025 11:00 AM EST Visit (SP) Office Hematology/Oncolog y [address] [place] [address] Andree Rome, SCIENCE TUTOR.MANUFACTURING MECHANIC [address] [place] [address] 6 MONTH FOLLOW UP 12/22/2025 11:30 AM [facility] Hematology/Oncolog y [address] [place] [address] 6 MONTH FOLLOW UP 07/12/2026 8:15 AM EDT Appointment Radiology Pet CT [address] [place] [address] CT CAP W IV 07/18/2026 2:40 PM EDT Visit (SP) Office Hematology/Oncolog y [address] [place] [address] Jamari Phillip MD [address] [place] [address] [address] FOLLOW UP AFTER CT SCAN documented as of this encounter Visit Diagnoses Not on filedocumented in this encounter Care Teams Wrap Knitting Machine Operator Relationship Specialty Start Date End Date Tonio Marin DO PCP - General Family Medicine 04/16/13 Sera Forbes LSW Metallurgical Inspector 09/26/22 Nick Anderson MD Physician Hematology/Oncology 10/01/22 04/23/25 Dania Key MD [facility] [place] [address] [place] [address] Physician Radiation Oncology 10/01/22 Andree Rome, AZAEL.MANUFACTURING MECHANIC [address] [place] [address] Nurse Practitioner Hematology/Oncology 10/01/22 Denisha Duarte, ALEXUS [address] [facility] [place] [address] Specialty Lithographic Proofer Hematology/Oncology 10/01/22 08/11/24 Ríos, Laurel M, RN Specialty Lithographic Proofer Colon and Rectal Surgery 02/18/23 02/19/28 documented as of this encounter
--- OUTSIDE RECORDS SUMMARY | 2025-08-05 07:55 | XMS_ITS | Encounter Summary ---
Author Organization [facility] Address [address] [place] [address] Care Team Providers Care Helpdesk Administrator Name Role Phone Tonio Marin DO Primary Care Provider [phone] Sera Forbes Unavailable Unavailable Nick Anderson MD Unavailable Unavail able Dania Key MD Unavailable [phone] Andree Rome APRN.ICU SPECIALIST Unavailable [phone] Denisha Duarte RN Unavailable [phone] Laurel Ríos RN Unavailable Unavailable Source Comments In the event this information is protected by the Federal Confidentiality of Alcohol and Drug AbusePatient Records regulations: The Federal rules restrict any use of the information to criminally investigate or prosecute any alcohol or drug abuse patient.[facility] Encounter Details Date Type Department Care Team (Late st Contact Info) Description 05/20/2024 Patient Msg Colorectal Surgery [address] [place] [address] Provider, Ccf colonoscopy 07/21 Social History Tobacco Use Types Packs/Day Years Used Date Smoking Tobacco: Never Passive Smoke Exposure: Never Smokeless Tobacco: Never Alcohol Use Standard Drinks/Week Comments Yes 0 (1 standard drink = 0.6 oz pur e alcohol) rarely PHQ-2 Answer Date Recorded PHQ-2 score 0 03/11/2024 Area Deprivation Index Answer Date Zander rded National Score (1-100), lower number is lower ri sk 53 02/21/2023 State Score (1-10), lower number is lower risk 3 02/21/2023 Data from: https://www.neighborhoodatlas.medicine.[facility]/. Last address used for calculation [...] y [address] [place] [address] B12 09/29/2025 10:45 AM EST Infusion Center Hematology/Oncolog y [address] [place] [address] B12 10/08/2025 10:00 AM EST Office Visit Colorectal Surgery [address] [place], [place] [phone] [place] [address] [place], [place] [address] F/up per Dr. Ospina 10/27/2025 10:45 AM EST Infusion Center Hematology/Oncolog y [address] [place] [address] B12 11/24/2025 10:45 AM EST Infusion Center Hematology/Oncolog y [address] [place] [address] B12 12/22/2025 10:30 AM EST Infusion Center Hematology/Oncolog y [address] [place] [address] 6 MONTH FOLLOW UP 12/22/2025 11:00 AM EST Visit (SP) Office Hematology/Oncolog y [address] [place] [address] Andree Rome, READING PROFESSOR.ICU SPECIALIST [address] [facility] [place] [address] 6 MONTH FOLLOW UP 12/22/2025 11:30 AM [facility] Hematology/Oncolog y [address] [place] [address] 6 MONTH FOLLOW UP 07/12/2026 8:15 AM EDT Appointment Radiology Pet CT [address] [place] [address] CT CAP W IV 07/18/2026 2:40 PM EDT Visit (SP) Office Hematology/Oncolog y [facility] [address] Jamari Phillip MD [address] [place] [address] [place] [address] [address] FOLLOW UP AFTER CT SCAN documented as of this encounter Visit Diagnoses Not on filedocumented in this encounter Care Teams Helpdesk Administrator Relationship Specialty Start Date End Date Tonio Marin DO PCP - General Family Medicine 04/16/13 Sera Forbes LSW Quality And Reliability Engineer 09/26/22 Nick Anderson MD Physician Hematology/Oncology 10/01/22 04/23/25 Dania Key MD [address] [place] [address] [place] [address] Physician Radiation Oncology 10/01/22 Andree Rome, AZAEL.ICU SPECIALIST [address] [place] [address] [place] [address] Nurse Practitioner Hematology/Oncology 10/01/22 Denisha Duarte, ALEXUS [address] [place] [address] [place] [address] Specialty Furnace Tapper Hematology/Oncology 10/01/22 08/11/24 Laurel Ríos, RN Specialty Furnace Tapper Colon and Rectal Surgery 02/18/23 02/19/28 documented as of this encounter
--- OUTSIDE RECORDS SUMMARY | 2025-08-05 07:55 | XMS_ITS | Encounter Summary ---
Author Organization [facility] Address [address] [place] [address] Care Team Providers Care Dry Food Products Mixer Name Role Phone Tonio Marin DO Primary Care Provider [phone] Sera Forbes Unavailable Unavailable Nick Anderson MD Unavailable Unavail able Dania Key MD Unavailable [phone] Andree Rome APRN.TRASH COLLECTOR Unavailable [phone] Laurel Ríos RN Unavailable Unavailable Source Comments In the event this information is protected by the Federal Confidentiality of Alcohol and Drug AbusePatient Records regulations: The Federal rules restrict any use of the information to criminally investigate or prosecute any alcohol or drug abuse patient.[facility] Encounter Details Date Type Department Care Team (Late st Contact Info) Description 09/07/2024 Patient [facility] Radiology Procedure [address] [place] [address] Provider, Ccyvonne You are scheduled for a Drain Exchange, On 09/08/2024. Social History Tobacco Use Types Packs/Day Years Used Date Smoking Tobacco: Never Passive Smoke Exposure: Never Smokeless Tobacco: Never Alcohol Use Standard Drinks/Week Comments Yes 0 (1 standard drink = 0.6 oz pur e alcohol) rarely [facility] Utilities Answer Date Recorded In [...] any time in the past 12 m [facility], were you homeless or living in a nursing home (including now)? No 08/17/2024 Area Deprivation Index Answer Date Zander rded National Score (1-100), lower number is lower ri sk 53 02/21/2023 State Score (1-10), lower number is lower risk 3 02/21/2023 Data from: https://www.neighborhoodatlas.medicine.[facility].edu/. Last address used for calculation [address] [...] Assessment Author No 07/29/2024 4:30 PM EDT [place], Nikolette, RN * Are you blind or do [...] Hematology/Oncolog y [address] [place] [address] B12 09/29/2025 10:45 AM EST Infusion Center Hematology/Oncolog y [address] [place] [address] B12 10/08/2025 10:00 AM EST Office Visit Colorectal Surgery [address] [place] [address] [place] [address] [place] [address] F/up per Dr. Ospina 10/27/2025 10:45 AM EST Infusion Center Hematology/Oncolog y [address] [place] [address] B12 11/24/2025 10:45 AM EST Infusion Center Hematology/Oncolog y [address] [place] [address] B12 12/22/2025 10:30 AM EST Infusion Center Hematology/Oncolog y [address] [place] [address] 6 MONTH FOLLOW UP 12/22/2025 11:00 AM EST Visit (SP) Office Hematology/Oncolog y [address] [place] [address] Andree Rome, AZAEL.TRASH COLLECTOR [address] [place] [address] 6 MONTH FOLLOW UP 12/22/2025 11:30 AM EST Infusion Center Hematology/Oncolog y [address] [place] [address] 6 MONTH FOLLOW UP 07/12/2026 8:15 AM EDT Appointment Radiology Pet CT [address] [place] [address] CT CAP W IV 07/18/2026 2:40 PM EDT Visit (SP) Office Hematology/Oncolog y [address] [place] [address] Jamari Phillip MD [address] [place] [address] 1 YEAR FOLLOW UP AFTER CT SCAN documented as of this encounter Visit Diagnoses Not on filedocumented in this encounter Care Teams Dry Food Products Mixer Relationship Specialty Start Date End Date Tonio Marin DO PCP - General Family Medicine 04/16/13 Sera Forbes LSW Manager Business Continuity 09/26/22 Nick Anderson MD Physician Hematology/Oncology 10/01/22 04/23/25 Dania Key MD [facility] [place] [place] [place] [address] Physician Radiation Oncology 10/01/22 Andree Rome, AZAEL.TRASH COLLECTOR [address] [place] [address] Nurse Practitioner Hematology/Oncology 10/01/22 Laurel Ríos, RN Specialty Wool Buyer Colon and Rectal Surgery 02/18/23 02/19/28 documented as of this encounter
--- OUTSIDE RECORDS SUMMARY | 2025-08-05 07:55 | XMS_ITS | Encounter Summary ---
Author Organization [facility] Address [address] [place] [address] Care Team Providers Care Literature Teacher Name Role Phone TomasEloyToniosaba Dailey DO Primary Care Provider [phone] Sera Forbes Unavailable Unavailable Nick Anderson MD Unavailable Unavail able Dania Key MD Unavailable [phone] Andree Rome APRN.HOUSE COORDINATOR Unavailable [phone] Laurel Ríos RN Unavailable Unavailable Source Comments In the event this information is protected by the Federal Confidentiality of Alcohol and Drug AbusePatient Records regulations: The Federal rules restrict any use of the information to criminally investigate or prosecute any alcohol or drug abuse patient.[facility] Encounter Details Date Type Department Care Team (Late st Contact Info) Description 10/17/2024 Patient Update [facility] Provider Adult [address] [id number] [place] [address] [address] [id number] Social History Tobacco Use Types Packs/Day Years Used Date Smoking Tobacco: Never Passive Smoke Exposure: Never Smokeless Tobacco: Never Alcohol Use Standard Drinks/Week Comments Yes 0 (1 standard drink = 0.6 oz pur e alcohol) rarely [facility] Utilities Answer Date Recorded In the [...] any time in the past 12 m [facility], were you homeless or living in a detention (including now)? No 08/17/2024 Area Deprivation Index Answer Date Zander rded National Score (1-100), lower number is lower ri sk 53 02/21/2023 State Score (1-10), lower number is lower risk 3 02/21/2023 Data from: https://www.neighborhoodatlas.medicine.[facility].edu/. Last address used for calculation [address] [...] Hematology/Oncolog y [address] [place] [address] B12 09/29/2025 10:45 AM EST Infusion Center Hematology/Oncolog y [address] [place] [address] B12 10/08/2025 10:00 AM EST Office Visit Colorectal Surgery [address] [place] [address] [place] [address] [place], [place] [id number] F/up per Dr. Ospina 10/27/2025 10:45 AM EST Infusion Center Hematology/Oncolog y [address] [place] [address] B12 11/24/2025 10:45 AM EST Infusion Center Hematology/Oncolog y [address] [place] [address] B12 12/22/2025 10:30 AM EST Infusion Center Hematology/Oncolog y [address] [place] [address] 6 MONTH FOLLOW UP 12/22/2025 11:00 AM EST Visit (SP) Office Hematology/Oncolog y [facility] [place] [address] [place] [address] Andree Rome, RESOURCE EFFICIENCY MANAGER.HOUSE COORDINATOR [address] [place] [address] 6 MONTH FOLLOW UP 12/22/2025 11:30 AM EST Infusion Center Hematology/Oncolog y [facility] [place] [address] [address] 6 MONTH FOLLOW UP 07/12/2026 8:15 AM EDT Appointment Radiology Pet CT [facility] [place] [address] CT CAP W IV 07/18/2026 2:40 PM EDT Visit (SP) Office Hematology/Oncolog y [facility] [place] [address] [place] [address] Jamari Phillip MD [address] [place] [address] [place] [address] [address] FO[address] UP AFTER CT SCAN Scheduled Orders Name Type Priority Associated Diagnoses Orde r Schedule C. DIFFICILE PCR Lab Routine Diarrhea of presumed infectious origin Ordered: 10/17/2024 documented as of this encounter Visit Diagnoses Diagnosis Diarrhea of presumed infectious origin- Primary documented in this encounter Care Teams Literature Teacher Relationship Specialty Start Date End Date Tonio Marin DO PCP - General Family Medicine 04/16/13 Sera Forbes LSW Manager Brand 09/26/22 Nick Anderson MD Physician Hematology/Oncology 10/01/22 04/23/25 Dania Key MD [address] [place] [address] [place] [address] Physician Radiation Oncology 10/01/22 Andree Rome APRN.[facility] [employer] [employer] [facility] [employer] [address] [place] [address] [place] [address] Nurse Practitioner Hematology/Oncology 10/01/22 Laurel Ríos, RN Specialty Gambling Monitor Colon and Rectal Surgery 02/18/23 02/19/28 documented as of this encounter
--- OUTSIDE RECORDS SUMMARY | 2025-08-05 07:55 | XMS_ITS | Encounter Summary ---
Author Organization [facility] Address [address] [place] [address] Care Team Providers Care Washing Machine Operator Name Role Phone Tonio Marin DO Primary Care Provider [phone] Sera Forbes Unavailable Unavailable Nick Anderson MD Unavailable Unavail able Dania Key MD Unavailable [phone] Andree Rome APRN.CLOUD DEVELOPER Unavailable [phone] Denisha Duarte RN Unavailable [phone] Laurel Ríos RN Unavailable Unavailable Source Comments In the event this information is protected by the Federal Confidentiality of Alcohol and Drug AbusePatient Records regulations: The Federal rules restrict any use of the information to criminally investigate or prosecute any alcohol or drug abuse patient.[facility] Encounter Details Date Type Department Care Team (Late st Contact Info) Description 05/19/2024 Patient Msg Colorectal Surgery [address] [place] [address] Provider, Ccf colonoscopy Social History Tobacco Use Types Packs/Day Years [...] is lower risk 3 02/21/2023 Data from: https://www.neighborhoodatlas.[facility]/. Last address used for calculation [address] [...] Hematology/Oncolog y [address] [place] [address] B12 09/29/2025 10:45 AM EST Infusion Center Hematology/Oncolog y [address] [place] [address] B12 10/08/2025 10:00 AM EST Office Visit Colorectal Surgery [address] [place], [place] [phone] [place] [address] [place], [place] [phone] F/up per Dr. Ospina 10/27/2025 10:45 AM EST Infusion Center Hematology/Oncolog y [address] [place] [address] B12 11/24/2025 10:45 AM EST Infusion Center Hematology/Oncolog y [address] [place] [address] B12 12/22/2025 10:30 AM EST Infusion Center Hematology/Oncolog y [address] [place] [address] 6 MONTH FOLLOW UP 12/22/2025 11:00 AM EST Visit (SP) Office Hematology/Oncolog y [address] [place] [address] Andree Rome APRN.CLOUD DEVELOPER [address] [place] [address] 6 MONTH FOLLOW UP 12/22/2025 11:30 AM [facility] Hematology/Oncolog y [address] [place] [address] 6 MONTH FOLLOW UP 07/12/2026 8:15 AM EDT Appointment Radiology Pet CT [address] [place] [address] CT CAP W IV 07/18/2026 2:40 PM EDT Visit (SP) Office Hematology/Oncolog [place] [address] Jamari Phillip MD [address] [place] [address] 1 YEAR FOLLOW UP AFTER CT SCAN documented as of this encounter Visit Diagnoses Not on filedocumented in this encounter Care Teams Washing Machine Operator Relationship Specialty Start Date End Date Tonio Marin DO PCP - General Family Medicine 04/16/13 Sera Forbes LSW Transfer Station Attendant 09/26/22 Nick Anderson MD Physician Hematology/Oncology 10/01/22 04/23/25 Dania Key MD [facility] [place] [place] [address] Physician Radiation Oncology 10/01/22 Andree Rome APRN.CLOUD DEVELOPER [facility] [place] [address] Nurse Practitioner Hematology/Oncology 10/01/22 Denisha Duarte, ALEXUS [address] [place] [address] [place] [address] Specialty Lead Cashier Hematology/Oncology 10/01/22 08/11/24 Laurel Ríos, RN Specialty Lead Cashier Colon and Rectal Surgery 02/18/23 02/19/28 documented as of this encounter
--- OUTSIDE RECORDS SUMMARY | 2025-08-05 07:55 | XMS_ITS | Clinical Summary ---
Author Organization [facility] Address [address] [place] [address] Care Team Providers Care Insurance Executive Name Role Phone Tonio Marin DO Primary Care Provider [phone] Sera Forbes AIRFIELD ENGINEER OFFICER Unavailable Unavailable Dania Key MD Unavailable [phone] Andree Rome LEAD INGOT MOLDER.RELIGIOUS ASSISTANT Unavailable [phone] Laurel Ríos RN Unavailable Unavailable Allergies No known active allergies Medications tamsulosin ER (FLOMAX) 0.4 mg cap Take 0.4 mg by mouth twice daily. Active Ascorbic Acid 100 mg tablet Take 100 mg by mouth twice daily. Active predniSONE (DELTASONE) 5 mg tablet Take 5 mg by mouth once daily. 09/03/20 Active valsartan (DIOVAN) 80 mg tablet Take 80 mg by mouth once daily. 09/03/20 Active carvedilol (COREG) 6.25 mg tablet Take 6.25 mg by mouth twice daily with meals. 09/03/20 Active calcium carbonate (CALCIUM 600 ORAL) Take 1 tablet by mouth once daily. Active glucosamine/c hondr perez A sod (GLUCOSAMINE- CHONDROITIN) 1,500-1,200 mg/30 mL liqd Take by mouth once daily. Active rivaroxaban (XARELTO) 20 mg tablet Take 1 tablet by mouth once daily. 90 tablet 2 02/12/20 25 Active skin resp.factor/s hark tracy.oil (HEMORRHOID CREAM RECTAL) by RECTAL route as needed. Active CPAP Active zolpidem (AMBIEN) 5 mg tabletIndicat ions:Malignan t neoplasm of rectum (HCC),Insomni a due to medical condition Take 1 tablet by mouth at bedtime as needed for up to 180 days. 30 tablet 5 07/19/20 25 2025 Active iv contrast (will be provided with radiology [...] CT contrast administration guidelines link. 1 each 07/20/20 25 Active enteric contrast (will be provided with radiology test) For CT CHESTABD/PEL W IVCON Routine order Administer, As Directed One Time Only, via Oral, Rectal, both Oral and Rectal, Enteric Tube, Stoma or Indwelling Catheter, Enteric Contrast as designated per enteric contrast guidelines 1 each 07/20/20 25 Active zolpidem (AMBIEN) 5 mg tabletIndicat ions:Malignan t neoplasm of rectum (HCC) Take 1 tablet by mouth at bedtime as needed for up to 180 days. 30 tablet 5 5 12:54 PM EDT 01/12/20 25 2024 Discontinued zolpidem (AMBIEN) 5 mg tabletIndicat ions:Malignan t neoplasm of rectum (HCC) Take 1 tablet by mouth at bedtime as needed for up to 180 days. 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 [place] [address] Megaloblastic anemia due to vitamin B12 deficiency (Primary Dx) 07/28/2025 1:00 PM EDT Infusion Center Hematology/Oncolog y [facility] [place] [address] Megaloblastic anemia due to vitamin B12 deficiency (Primary Dx) 07/28/2025 Telephone Hematology/Oncolog y [facility] [place] [address] Jamari Phillip MD Patient Update (B12 & labs) 07/20/2025 Telephone Cancer Appts [facility] [place] [address] Jamari Phillip MD Appointment 07/19/2025 4:15 PM EDT Nurse Visit Hematology/Oncolog y [facility] [place] [address] Nandini Tx Nurse Juan Carlos Megaloblastic anemia due to vitamin B12 deficiency (Primary Dx) 07/19/2025 4:00 PM EDT Infusion Center Hematology/Oncolog y [address] [place] [address] [place] [address] Malignant neoplasm of rectum (HCC); Rheumatoid arthritis involving multiple sites, unspecified whether rheumatoid factor present (HCC); Primary hypercoagulable state (HCC); Right lower quadrant abdominal abscess (HCC); Skin lesion of scalp 07/19/2025 3:00 PM EDT Visit (SP) Office Hematology/Oncolog [facility] [place] [address] Jamari Phillip MD Malignant neoplasm of rectum (HCC) (Primary Dx); Rheumatoid arthritis involving multiple sites, unspecified whether rheumatoid factor present (HCC); Primary hypercoagulable state (HCC); Right lower quadrant abdominal abscess (HCC); Skin lesion of scalp; Insomnia due to medical condition; Megaloblastic anemia due to vitamin B12 deficiency; Personal history of malignant neoplasm of rectum, rectosigmoid junction, and anus; Kidney stone on left side; Fistula of intestine; Primary obstructive sleep apnea of ; Hemorrhoids, unspecified hemorrhoid type; Squamous cell carcinoma of skin; Encounter for follow-up examination after completed treatment for malignant neoplasm; Anemia due to vitamin B12 deficiency, unspecified B12 deficiency type 07/19/2025 Travel 07/15/2025 8:11 AM EDT - 07/15/2025 11:59 PM EDT Hospital Encounter Radiology Pet CT [address] [facility] [place] [address] Malignant neoplasm of rectum (HCC) [C20] Discharge Disposition: Home 07/15/2025 Results Follow-Up Hematology/Oncolog y [address] [place] [address] [place] [address] Denisha Duarte RN 07/13/2025 10:20 AM EDT - 07/13/2025 11:59 PM EDT Hospital Encounter [facility] [place] [address] [place], [place] [id number] Malignant neoplasm of rectum (HCC) [C20] Discharge Disposition: Home 07/12/2025 Refill [facility] [address] [place] [address] Andree Rome APRN.RELIGIOUS ASSISTANT Refill Request 07/07/2025 Travel 06/18/2025 Telephone Hematology/Oncolog y [address] [place] [address] [place] [address] Jamari Phillip MD Orders from Last 3 Months Immunizations Immunization Administration Dates Next Due COVID-19 original vaccine, a ge 12+ yr, monovalent ([employer] - PURPLE TOP) 09/20/2021,12/23/2020,12/02/2020 COVID-19 vaccine, unspecified formulation 2020,12/23/2020,12/02/2020 hepatitis B (HepB) vaccine, 3-dose series, age 20+ yr (ENGERIX-B, RECOMBIVAX HB) 03/31/1997 influenza (HD-IIV3) vaccine, age 65+ yr, high dose, trivalent, PF (FLUZONE HIGH-DOSE) 07/25/2021 influenza (HD-IIV4) vaccine, age 65+ yr, high dose, quadrivalent, PF (FLUZONE HIGH-DOSE) 07/21/2020 influenza (LAIV) vaccine, na caren, unspecified formulation 07/25/2021,07/21/2020,07/27/2019 influenza vaccine, unspecified formulation 07/27 novel influenza ([id number]) vaccine, PF 10/25/2009 pneumococcal conjugate (PCV1 3) vaccine, 13 valent (PREVNAR 13) 07/14/2018 pneumococcal polysaccharide (PPV23) vaccine, 23 valent (PNEUMOVAX 23) 09/15/2019 zoster (RZV) vaccine, recomb inant (SHINGRIX) 09/24/2020 Family History Medical History Relation Comments Cancer Brother Thyroid and Pros de jesus Cancer Father bladder Pancreatic Cancer Mother Liver Cancer Sister Colon Cancer No Family History Relation Status Comments Brother Father Mother Sister Social History Tobacco Use Types Packs/Day Years Used Date Smoking Tobacco: Never Passive Smoke Exposure: Never Smokeless Tobacco: Never Tobacco Cessation:Counseling Given: Not Answered Alcohol Use Standard Drinks/Week Comments Yes 0 (1 standard drink = 0.6 oz pur e alcohol) 1 beer daily [employer] Utilities Answer Date Recorded In the past 12 months has th e [employer], gas, oil, or water [employer] threatened to shut off services in your [...] in the past 12 m [facility], were you homeless or living in a detention (including now)? No 08/17/2024 Area Deprivation Index Answer Date Zander rded National Score (1-100), lower number is lower ri sk 53 02/21/2023 State Score (1-10), lower number is lower risk 3 02/21/2023 Data from: https://www.neighborhoodatlas.[email or web address]/. Last address used for [...] 10:42 AM EDT Respiratory Rate 16 08/04/2025 10:4 2 AM EDT Oxygen Saturation 96% 08/04/2025 10: 42 AM EDT Inhaled Oxygen Concentration - - Weight 105.6 kg (232 lb 12.9 oz) 07/19/2025 2:49 PM EDT Height 188 cm (6' 2.02 ) 07/19/2025 2:49 PM EDT Body Mass Index 29.88 07/19/2025 2:49 PM EDT Plan of Treatment Upcoming Encounters Date Type Department Care Team (Late st Contact Info) Description 09/01/2025 10:45 AM EST Infusion Center Hematology/Oncolog y [address] [place] [address] B12 09/29/2025 10:45 AM EST Infusion Center Hematology/Oncolog y [address] [place] [address] B12 10/08/2025 10:00 AM EST Office Visit Colorectal Surgery [facility] [address] [place], [place] [id number] [place] [address] [place], [place] [id number] F/up per Dr. Ospina 10/27/2025 10:45 AM EST Infusion Center Hematology/Oncolog y [address] [place] [address] B12 11/24/2025 10:45 AM EST Infusion Center Hematology/Oncolog y [address] [place] [address] B12 12/22/2025 10:30 AM EST Infusion Center Hematology/Oncolog y [address] [place] [address] 6 MONTH FOLLOW UP 12/22/2025 11:00 AM EST Visit (SP) Office Hematology/Oncolog y [address] [place] [address] Andree Rome APRN.RELIGIOUS ASSISTANT [address] [place] [address] 6 MONTH FOLLOW UP 12/22/2025 11:30 AM EST Infusion Center Hematology/Oncolog y [address] [place] [address] 6 MONTH FOLLOW UP 07/12/2026 8:15 AM EDT Appointment Radiology Pet CT [address] [place] [address] CT CAP W IV 07/18/2026 2:40 PM EDT Visit (SP) Office Hematology/Oncolog y [address] [place] [address] Jamari Phillip MD [address] [place] [address] [address] FOLLOW UP AFTER CT SCAN Health Maintenance Due Date Last Done Comments Anxiety Screening 1970 Depression Screening 1970 Hepatitis C Screening 1970 DTaP,Tdap,Td Vaccine (1 - Tdap) [address] Colonography 1997 Cologuard (FIT-DNA) 1997 Fecal Occult Blood 1997 RSV Vaccine (1 - Risk 60-74 years 1-dose series) 2012 Medicare Annual Wellness Visit 09/20/2017 Shingrix Vaccine (2 of 2) 11/19/2020 09/24/2020 Advance Directive Discussion 10/21/2024 Covid-19 Vaccine (8 - 2024-2 6 season) 2025 07/10/2023, 09/20/2021, 09/20/2021, Additional history exists Influenza Vaccine (#1) 2025 , 07/25/2021, 07/21/2020, Additional history exists Colonoscopy 07/21/2025 07/21/2024, 04/09/2023 Diabetes Screening 07/15/2028 07/15/2025, 0 04/12/2025, 01/11/2025, Additional history exists Colorectal Cancer Screening 11/24/2029 Sigmoidoscopy 11/24/2029 11/24/2024, 05/0 04/2024, 11/05/2023, Additional history exists Pneumococcal Vaccine: 50+ Completed 09/15/2019, Medical Devices Implanted Type Area Scrap Kettle Tender Device Identifier Shelf Expiration Date Model / Serial / Lot Port-12/20/2022 Implanted:2022 (Quantity not on file) Chest Description:[place] [employer]; Saline only flushes Procedures Procedure Name Priority Date/Time Associated Diagnosis Comments FOLATE SERUM Routine 07/19/2025 4:06 PM EDT Malignant neoplasm of rectum (HCC) Rheumatoid arthritis involving multiple sites, unspecified whether rheumatoid factor present (HCC) Primary hypercoagulable state (HCC) Right lower quadrant abdominal abscess (HCC) Skin lesion of scalp VITAMIN B12 BLOOD Routine 07/19/2025 4:0 6 PM EDT Malignant neoplasm of rectum (HCC) Rheumatoid arthritis involving multiple sites, unspecified whether rheumatoid factor present (HCC) Primary hypercoagulable state (HCC) Right lower quadrant abdominal abscess (HCC) Skin lesion of scalp FERRITIN BLD Routine 07/19/2025 4:06 PM EDT Malignant neoplasm of rectum (HCC) Rheumatoid arthritis involving multiple sites, unspecified whether rheumatoid factor present (HCC) Primary hypercoagulable state (HCC) Right lower quadrant abdominal abscess (HCC) Skin lesion of scalp IRON + TIBC Routine 07/19/2025 4:06 PM EDT Malignant neoplasm of rectum (HCC) Rheumatoid arthritis involving multiple sites, unspecified whether rheumatoid factor present (HCC) Primary hypercoagulable state (HCC) Right lower quadrant abdominal abscess (HCC) Skin lesion of scalp CT ABD/PEL W IVCON Routine 07/15/2025 10 :39 AM EDT Malignant neoplasm of rectum (HCC) CT CHEST W IVCON Routine 07/15/2025 10:3 9 AM EDT Malignant neoplasm of rectum (HCC) EXTERNAL IMAGING 07/15/2025 10:0 4 AM EDT EXTERNAL IMAGING 07/15/2025 10:0 4 AM EDT EXTERNAL IMAGING 07/15/2025 10:0 4 AM EDT EXTERNAL LAB 07/15/2025 10:04 AM EDT CBC + DIFF Routine 07/15/2025 8:16 AM EDT Malignant neoplasm of rectum (HCC) COMPREHENSIVE METABOLIC PANEL Routine 07/15/2025 8:16 AM EDT Malignant neoplasm of rectum (HCC) CEA BLD Routine 07/15/2025 8:16 AM EDT Malignant neoplasm of rectum (HCC) MRI RECTUM WO/W IVCON Routine 07/13/2025 12:59 PM EDT Malignant neoplasm of rectum (HCC) XR OUTSIDE CD DICOM IMPORT 07/01/2025 US OUTSIDE CD DICOM IMPORT 07/01/2025 CT OUTSIDE CD DICOM IMPORT 06/18/2025 SIGMOIDOSCOPY Routine 11/24/2024 11:58 AM EST Encounter for follow-up surveillance of rectal cancer COLONOSCOPY SCREENING Routine 07/21/2024 9:56 AM EDT Encounter for follow-up surveillance of rectal cancer from Last 3 Months or Most Recently Relevant to Health Maintenance Results * (ABNORMAL) VITAMIN B12 (07/19/2025 4:06 PM EDT) Pathologist [facility] Vitamin B12 193(L) 232 - 1,245 pg/mL 07/20/2025 1:06 PM EDT [facility] Blood BLOOD SPECIMEN / Unknown Port - Continuous Access Dev. / Unknown 07/19/2025 4:06 PM EDT 07/19/2025 4:13 PM EDT us Jamari Phillip MD LABORATORY Final Result [facility] [address] [place] [address], [place] * IRON AND TIBC (07/19/2025 4:06 PM EDT) Pathologist [facility] Iron 55 41 - 186 ug/dL 07/20/2025 12:50 PM EDT [facility] TIBC 263 232 - 386 ug/dL 07/20/2025 12:50 PM EDT [facility] Transferrin Saturation 20.9 15.0 - 57.0 % 07/20/2025 12:50 PM EDT [facility] Blood BLOOD SPECIMEN / Unknown Port - Continuous Access Dev. / Unknown 07/19/2025 4:06 PM EDT 07/19/2025 4:13 PM EDT us Jamari Phillip MD LABORATORY Final Result [facility] [address] [place] [address], [place] * FOLATE, SERUM (07/19/2025 4:06 PM EDT) Pathologist [facility] Folate 11.5 >4.7 ng/mL 07/20/2025 1:06 PM EDT [facility] Blood BLOOD SPECIMEN / Unknown Port - Continuous Access Dev. / Unknown 07/19/2025 4:06 PM EDT 07/19/2025 4:13 PM EDT us Jamari Phillip MD LABORATORY Final Result [facility] [address] [facility] [address] [address], [place] * FERRITIN (07/19/2025 4:06 PM EDT) Ferritin 57.0 30.3 - 565.7 ng/mL 07/20/2025 1:06 PM EDT [facility] Blood BLOOD SPECIMEN / Unknown Port - Continuous Access Dev. / Unknown 07/19/2025 4:06 PM EDT 07/19/2025 4:13 PM EDT us Jamari Phillip MD LABORATORY Final Result Performing Organization Address [facility] Co de Phone Number [facility] [address] [facility] [address] [address], [place] * CT ABD/PEL W IVCON (07/15/2025 10:39 AM EDT) Anatomical Region Laterality Modality Abdomen Nuclear Medicine , Nuclear Medicine 07/15/2025 10:3 9 AM EDT Impressions 07/15/2025 11:17 AM EDT IMPRESSION: No metastatic disease in the abdomen or pelvis. 4 mm calculus in the distal left ureter without upstream hydroureteronephrosis. Transcribe Date/Time: Jul 15 2025 11:02A Dictated by: ULIS TOSCANO MD This examination was interpreted and the report reviewed and electronically signed by: LUIS TOSCANO MD on Jul 15 2025 11:15AM EST Thank you for allowing us to participate in the care of your patient. Should there be any questions regarding this interpretation, please call [phone]. If you are unable to reach us at the number above, please feel free to contact [facility] at [phone]. Narrative 07/15/2025 11:17 AM EDT * * *Final Report* * * DATE OF EXAM: Jul 15 2025 10:39AM [facility] 0530 - CT ABD/PEL W IVCON / PROCEDURE REASON: Malignant neoplasm of rectum (HCC) * * * * Physician Interpretation * * * * RESULT: EXAMINATION: CT ABDOMEN AND PELVIS WITH IV CONTRAST PATIENT/TECHNOLOGIST PROVIDED HISTORY: rectal cancer CLINICAL INFORMATION ( PROVIDED BY ORDERING CLINICIAN) : Malignant neoplasm of rectum (HCC) TECHNIQUE: CT of the abdomen and pelvis was performed using standard technique, scanning from just above the dome of the diaphragm to the pubic symphysis. . Contrast: IV: 100 ml of Omnipaque 350 Oral: 500 ml of Omni 240 10-25ml diluted with water CT Radiation dose: Integrated Dose-length product (DLP) for this visit = 1394 mGy*cm. CT Dose Reduction Employed: Automated exposure control (AEC) COMPARISON: MRI 07/13/2025 CT 01/13/2025 and 11/10/2024 Abdomen / Pelvis: Liver: No focal hepatic lesions. Spleen: Granulomas. Pancreas: No focal pancreatic lesions. Adrenals: No mass. Biliary: No bile duct dilation. Cholelithiasis. Kidneys: 7 mm left renal calculus. 4 mm calculus distal left ureter without obstructive hydronephrosis (image 135). Bilateral parapelvic cysts. No hydronephrosis. Vasculature: The celiac axis and SMA are patent. The portal vein and branches, splenic vein, SMV, and hepatic veins are patent. Mild atherosclerotic calcifications of the abdominal aorta without aneurysm. GI tract: No bowel obstruction. Colonic diverticulosis without acute diverticulitis. Right hemicolectomy. Lymph nodes: No lymphadenopathy by CT size criteria. Mesentery/Peritoneum: No ascites, fluid collection, or mass. Pelvis: No mass or fluid collection. Urinary bladder is unremarkable. Bones/Soft tissues: Umbilical hernia containing nonobstructed small bowel. Degenerative changes in lumbar spine. No aggressive osseous lesions. Lower thorax: Dedicated CT imaging of the chest was performed concurrently and is dictated separately. Wellness Program Administrator (topogram) images: Unremarkable. Procedure Note Provider, [facility] - 07/15/2025 * * *Final Report* * * DATE OF EXAM: Jul 15 2025 10:39AM [facility] 0530 - CT ABD/PEL W IVCON / PROCEDURE REASON: Malignant neoplasm of rectum (HCC) * * * * Physician Interpretation * * * * RESULT: EXAMINATION: CT ABDOMEN AND PELVIS WITH IV CONTRAST PATIENT/TECHNOLOGIST PROVIDED HISTORY: rectal cancer CLINICAL INFORMATION ( PROVIDED BY ORDERING CLINICIAN) : Malignant neoplasm of rectum (HCC) TECHNIQUE: CT of the abdomen and pelvis was performed using standard technique, scanning from just above the dome of the diaphragm to the pubic symphysis. . Contrast: IV: 100 ml of Omnipaque 350 Oral: 500 ml of Omni 240 10-25ml diluted with water CT Radiation dose: Integrated Dose-length product (DLP) for this visit = 1394 mGy*cm. CT Dose Reduction Employed: Automated exposure control (AEC) COMPARISON: MRI 07/13/2025 CT 01/13/2025 and 11/10/2024 Abdomen / Pelvis: Liver: No focal hepatic lesions. Spleen: Granulomas. Pancreas: No focal pancreatic lesions. Adrenals: No mass. Biliary: No bile duct dilation. Cholelithiasis. Kidneys: 7 mm left renal calculus. 4 mm calculus distal left ureter without obstructive hydronephrosis (image 135). Bilateral parapelvic cysts. No hydronephrosis. Vasculature: The celiac axis and SMA are patent. The portal vein and branches, splenic vein, SMV, and hepatic veins are patent. Mild atherosclerotic calcifications of the abdominal aorta without aneurysm. GI tract: No bowel obstruction. Colonic diverticulosis without acute diverticulitis. Right hemicolectomy. Lymph nodes: No lymphadenopathy by CT size criteria. Mesentery/Peritoneum: No ascites, fluid collection, or mass. Pelvis: No mass or fluid collection. Urinary bladder is unremarkable. Bones/Soft tissues: Umbilical hernia containing nonobstructed small bowel. Degenerative changes in lumbar spine. No aggressive osseous lesions. Lower thorax: Dedicated CT imaging of the chest was performed concurrently and is dictated separately. Wellness Program Administrator (topogram) images: Unremarkable. IMPRESSION IMPRESSION: No metastatic disease in the abdomen or pelvis. 4 mm calculus in the distal left ureter without upstream hydroureteronephrosis. Transcribe Date/Time: Jul 15 2025 11:02A Dictated by: LUIS TOSCANO MD This examination was interpreted and the report reviewed and electronically signed by: LUIS TOSCANO MD on Jul 15 2025 11:15AM EST Thank you for allowing us to participate in the care of your patient. Should there be any questions regarding this interpretation, please call [phone]. If you are unable to reach us at the number above, please feel free to contact [facility]iology at [phone]. us Floresita Youngerod LEAD INGOT MOLDER.RELIGIOUS ASSISTANT CT-PAMA Final Resul t * CT CHEST W IVCON (07/15/2025 10:39 AM EDT) Anatomical Region Laterality Modality Chest Nuclear Medicine , Nuclear Medicine 07/15/2025 10:3 9 AM EDT Impressions 07/15/2025 11:34 AM EDT IMPRESSION: Right lower lobe pulmonary nodules have decreased in size since prior. Additional pulmonary nodules are stable. Transcribe Date/Time: Jul 15 2025 11:17A Dictated by: LUIS TOSCANO MD This examination was interpreted and the report reviewed and electronically signed by: LUIS TOSCANO MD on Jul 15 2025 11:32AM EST Thank you for allowing us to participate in the care of your patient. Should there be any questions regarding this interpretation, please call [phone]. If you are unable to reach us at the number above, please feel free to contact [facility] at [phone]. Narrative 07/15/2025 11:34 AM EDT * * *Final Report* * * DATE OF EXAM: Jul 15 2025 10:39AM [facility] 0539 - CT CHEST W IVCON / PROCEDURE REASON: Malignant neoplasm of rectum (HCC) * * * * Physician Interpretation * * * * RESULT: EXAMINATION: CHEST CT WITH CONTRAST CLINICAL HISTORY: Malignant neoplasm of rectum (HCC) Technique: Spiral CT acquisition of the chest from the thoracic inlet to the upper abdomen following IV contrast. MQ: [id number] Contrast: 100 mL Omnipaque [address] Dose-Length Product: 1394 mGy*cm CT Dose Reduction Employed: Automated exposure control (AEC) Comparison: 12/24/2024 and 12/20/2023 RESULT: Lines, tubes, and devices: Right total port tip at the cavoatrial junction. Lung parenchyma and airways: Trachea and central airways are patent. Unchanged scattered pulmonary nodules. Index nodules are as follows: * 6 mm nodule right upper lobe (image 60) * 9 mm nodule right upper lobe (image 73) * 4 mm right middle lobe nodule (image 106) * 3 mm nodule left upper lobe (image 92) * 3 mm nodule right lower lobe (image 108) 2 mm nodule right lower lobe (image 117) previously 5 mm. 1 mm nodule right lower lobe (image 121) previously 3 mm. Elevation of the left hemidiaphragm with chronic atelectasis or scarring. Pleural space: No pleural effusion or pneumothorax. Lower neck, lymph nodes, and mediastinum: No axillary, supraclavicular, mediastinal or hilar lymphadenopathy by CT size criteria. Calcified subcarinal lymph nodes. Heart, pericardium, and thoracic vessels: The heart is normal in size. No pericardial effusion. The thoracic aorta and main pulmonary artery are normal in caliber. Bones/Soft Tissues: No aggressive osseous lesions. Upper abdomen: Dedicated CT imaging of the abdomen and pelvis was performed concurrently and is dictated separately. Wellness Program Administrator (topogram) images: Unremarkable. Procedure Note Provider, [facility] - 07/15/2025 * * *Final Report* * * DATE OF EXAM: Jul 15 2025 10:39AM [facility] 0539 - CT CHEST W IVCON / PROCEDURE REASON: Malignant neoplasm of rectum (HCC) * * * * Physician Interpretation * * * * RESULT: EXAMINATION: CHEST CT WITH CONTRAST CLINICAL HISTORY: Malignant neoplasm of rectum (HCC) Technique: Spiral CT acquisition of the chest from the thoracic inlet to the upper abdomen following IV contrast. MQ: CTCWR_5 Contrast: 100 mL Omnipaque [address] Dose-Length Product: 1394 mGy*cm CT Dose Reduction Employed: Automated exposure control (AEC) Comparison: 12/24/2024 and 12/20/2023 RESULT: Lines, tubes, and devices: Right total port tip at the cavoatrial junction. Lung parenchyma and airways: Trachea and central airways are patent. Unchanged scattered pulmonary nodules. Index nodules are as follows: * 6 mm nodule right upper lobe (image 60) * 9 mm nodule right upper lobe (image 73) * 4 mm right middle lobe nodule (image 106) * 3 mm nodule left upper lobe (image 92) * 3 mm nodule right lower lobe (image 108) 2 mm nodule right lower lobe (image 117) previously 5 mm. 1 mm nodule right lower lobe (image 121) previously 3 mm. Elevation of the left hemidiaphragm with chronic atelectasis orscarring. Pleural space: No pleural effusion or pneumothorax. Lower neck, lymph nodes, and mediastinum: No axillary, supraclavicular, mediastinal or hilar lymphadenopathy by CT size criteria. Calcified subcarinal lymph nodes. Heart, pericardium, and thoracic vessels: The heart is normal in size. No pericardial effusion. The thoracic aorta and main pulmonary artery are normal in caliber. Bones/Soft Tissues: No aggressive osseous lesions. Upper abdomen: Dedicated CT imaging of the abdomen and pelvis was performed concurrently and is dictated separately. Wellness Program Administrator (topogram) images: Unremarkable. IMPRESSION IMPRESSION: Right lower lobe pulmonary nodules have decreased in size since prior. Additional pulmonary nodules are stable. Transcribe Date/Time: Jul 15 2025 11:17A Dictated by: LUIS TOSCANO MD This examination was interpreted and the report reviewed and electronically signed by: LUIS TOSCANO MD on Jul 15 2025 11:32AM EST Thank you for allowing us to participate in the care of your patient. Should there be any questions regarding this interpretation, please call [phone]. If you are unable to reach us at the number above, please feel free to contact [facility] at [phone]. us Floresita Vick LEAD INGOT MOLDER.RELIGIOUS ASSISTANT CT-PAMA Final Resul t * EXTERNAL IMAGING (07/15/2025 10:04 AM EDT) Anatomical Region Laterality Modality Other us External Provider PA-C RADIOLOGY Final Res ult * EXTERNAL IMAGING (07/15/2025 10:04 AM EDT) Anatomical Region Laterality Modality Other us External Provider PA-C RADIOLOGY Final Res ult * EXTERNAL IMAGING (07/15/2025 10:04 AM EDT) Anatomical Region Laterality Modality Other us External Provider PA-C RADIOLOGY Final Res ult * EXTERNAL LAB (07/15/2025 10:04 AM EDT) us External Provider PAKuldeep LABORATORY Final Res ult * (ABNORMAL) COMPREHENSIVE METABOLIC PANEL (07/15/2025 8:16 AM EDT) Pathologist [facility] Protein, Total 6.0(L) 6.3 - 8.0 g/dL 07/15/2025 8:54 AM EDT [facility] Albumin 3.5(L) 3.9 - 4.9 g/dL 07/15/2025 8:54 AM EDT [facility] Calcium, Total 8.7 8.5 - 10.2 mg/dL 07/15/2025 8:54 AM EDT [facility] Bilirubin, Total 0.5 0.2 - 1.3 mg/dL 07/15/2025 8:54 AM EDT [facility] Alkaline Phosphatase 108 38 - 113 U/L 07/15/2025 8:54 AM EDT [facility] AST 16 14 - 40 U/L 07/15/2025 8:54 AM EDT [facility] ALT 16 10 - 54 U/L 07/15/2025 8:54 AM EDT [facility] Glucose 84 74 - 99 mg/dL 07/15/2025 8:54 AM T [facility] Comment: The [place] Diabetes Association (ADA) provides guidance for cutoff [...] Standards of Medical Care in Diabetes 2016, [place] Diabetes Association. Diabetes Care. 2016.39(Suppl 1). BUN 14 9 - 24 mg/dL 07/15/2025 8:54 AM EDT [facility] Creatinine 0.97 0.73 - 1.22 mg/dL 07/15/2025 8:54 AM EDT [facility] Sodium 141 136 - 144 mmol/L 07/15/2025 8:54 AM EDT [facility] Potassium 3.8 3.7 - 5.1 mmol/L 07/15/2025 8:54 AM EDT [facility] Chloride 107 98 - 107 mmol/L 07/15/2025 8:54 AM EDT [facility] CO2 25 22 - 30 mmol/L 07/15/2025 8:54 AM EDT [facility] Anion Gap 9 8 - 15 mmol/L 07/15/2025 8:54 AM EDT [facility] Estimated Glomerular Filtration Rate 83 >=60 mL/min/1. 73m 07/15/2025 8:54 AM EDT [facility] Comment:Estimated Glomerular Filtration Rate (eGFR) is calculated using the 2020 CKD-EPI creatinine equation. This equation utilizes serum creatinine, sex, and age as parameters. The creatinine assay has traceable calibration to isotope dilution- mass spectrometry. Refer to KDIGO guidelines for clinical interpretation. In patients with unstable renal function, e.g. those with acute kidney injury, the eGFR may not accurately reflect actual GFR. Blood BLOOD SPECIMEN / Unknown Venipuncture / Unknown 07/15/2025 8:16 AM EDT 07/15/2025 8:32 AM EDT us Floresita Vick LEAD INGOT MOLDER.RELIGIOUS ASSISTANT LABORATORY Final Resul t [facility] [address] [place] [address] * CARCINOEMBRYONIC ANTIGEN (07/15/2025 8:16 AM EDT) CEA 1.9 <=2.9 ng/mL 07/16/2025 10:15 AM EDT [facility] Comment: Carcinoembryonic antigen test is used as an aid in monitoring response to treatment or recurrence in patients with established colorectal, breast, lung, prostatic, pancreatic, and ovarian carcinomas. Clinical correlation is required. The Carcinoembryonic antigen test was performed using the Korina Urmila Unicel DXI paramagnetic particle chemiluminescent immunoassay method. Results obtained with different assay methods or kits cannot be used interchangeably. Blood BLOOD SPECIMEN / Unknown Venipuncture / Unknown 07/15/2025 8:16 AM EDT 07/15/2025 8:32 AM EDT us Floresita Vick LEAD INGOT MOLDER.RELIGIOUS ASSISTANT LABORATORY Final Resul t [facility] [address] [facility] Desk [address] [address], [place] * (ABNORMAL) COMPLETE BLOOD COUNT AND DIFFERENTIAL (07/15/2025 8:16 AM EDT) WBC 7.56 3.70 - 11.00 k/uL 07/15/2025 8:36 AM EDT [facility] RBC 4.04(L) 4.20 - 6.00 m/uL 07/15/2025 8:36 AM EDT [facility] Hemoglobin 12.4(L) 13.0 - 17.0 g/dL 07/15/2025 8:36 AM EDT [facility] Hematocrit 37.9(L) 39.0 - 51.0 % 07/15/2025 8:36 AM EDT [facility] MCV 93.8 80.0 - 100.0 fL 07/15/2025 8:36 AM EDT [facility] MCH 30.7 26.0 - 34.0 pg 07/15/2025 8:36 AM EDT [facility] MCHC 32.7 30.5 - 36.0 g/dL 07/15/2025 8:36 AM EDT [facility] RDW-CV 17.1(H) 11.5 - 15.0 % 07/15/2025 8:36 AM EDT [facility] Platelet Count 212 150 - 400 k/uL 07/15/2025 8:36 AM EDT [facility] MPV 10.2 9.0 - 12.7 fL 07/15/2025 8:36 AM EDT [facility] Neutrophils % 69.4 % 07/15/2025 8:36 AM EDT [facility] Abs Neut 5.25 1.45 - 7.50 k/uL 07/15/2025 8:36 AM EDT [facility] Lymphocytes % 16.3 % 07/15/2025 8:36 AM EDT [facility] Abs Lymph 1.23 1.00 - 4.00 k/uL 07/15/2025 8:36 AM EDT [facility] Monocytes % 9.9 % 07/15/2025 8:36 AM EDT [facility] Abs Roosevelt 0.75 <0.87 k/uL 07/15/2025 8:36 AM EDT [facility] Eosinophils % 3.4 % 07/15/2025 8:36 AM EDT [facility] Abs Eosin 0.26 <0.46 k/uL 07/15/2025 8:36 AM EDT [facility] Basophils % 0.7 % 07/15/2025 8:36 AM EDT [facility] Abs Baso 0.05 <0.11 k/uL 07/15/2025 8:36 AM EDT [facility] Immature Granulocytes % 0.3 % 07/15/2025 8:36 AM EDT [facility] Abs Immature Gran <0.03 <0.10 k/uL 07/15/2025 8:36 AM EDT [facility] NRBC 0.0 /100 WBC 07/15/2025 8:36 AM EDT [facility] Absolute nRBC <0.01 <0.01 k/uL 07/15/2025 8:36 AM EDT [facility] Diff Type Auto 07/15/2025 8:36 AM EDT [facility] Blood BLOOD SPECIMEN / Unknown Venipuncture / Unknown 07/15/2025 8:16 AM EDT 07/15/2025 8:32 AM EDT us Floresita Nava LEAD INGOT MOLDER.RELIGIOUS ASSISTANT LABORATORY Final Resul t [facility] [address] [place] [address] * MRI RECTUM WO/W IVCON (07/13/2025 12:59 PM EDT) Anatomical Region Laterality Modality Pelvis Magnetic Resonan ce 07/13/2025 12:5 9 PM EDT Impressions 07/13/2025 3:02 PM EDT IMPRESSION: DENSE SCAR INVOLVING THE LOW RECTAL WALL / ANAL CANAL. NO VIABLE TUMOR. Since 01/04/2025, 09/11/2022, post treatment primary tumor assessment: Complete/near complete response. mrTRG: Grade 2 - Good response Suspicious Mesorectal lymph nodes: No. Suspicious Extramesorectal lymph nodes: No. Aviation Survival Technician: PSCB Transcribe Date/Time: Jul 13 2025 2:43P Dictated by : LUIS TOSCANO MD This examination was interpreted and the report reviewed and electronically signed by: LUIS TOSCANO MD on Jul 13 2025 3:00PM EST Narrative 07/13/2025 3:02 PM EDT * * *Final Report* * * DATE OF EXAM: Jul 13 2025 12:59PM [facility] 0754 - MRI [...] and as remote as 09/11/2022 TECHNIQUE: Magnet: [employer] Abodea scanner. Multiplanar MRI with multiple sequences before [...] lymph nodes: None. OTHER FINDINGS: Colonic diverticula Procedure Note Provider, [facility] - 07/13/2025 * * *Final Report* * * DATE OF EXAM: Jul 13 2025 12:59PM [facility] 0754 - MRI [...] and as remote as 09/11/2022 TECHNIQUE: Magnet: [employer] Enviable Abodea scanner. Multiplanar MRI with multiple sequences before [...] of anal sphincter complex: Invades internal sphincter (IAS)only. Anal canal involvement: Upper, mid and distal [...] lymph nodes: None. OTHER FINDINGS: Colonic diverticula IMPRESSION IMPRESSION: DENSE SCAR INVOLVING THE LOW RECTAL WALL / ANAL CANAL. NO VIABLE TUMOR. Since 01/04/2025, 09/11/2022, post treatment primary tumor assessment: Complete/near complete response. mrTRG: Grade 2 - Good response Suspicious Mesorectal lymph nodes: No. Suspicious Extramesorectal lymph nodes: No. Aviation Survival Technician: SHARON Transcribe Date/Time: Jul 13 2025 2:43P Dictated by : LUIS TOSCANO MD This examination was interpreted and the report reviewed and electronically signed by: LUIS TOSCANO MD on Jul 13 2025 3:00PM EST us Nick Anderson MD MRI-PAMA Final Re sult * [place]-XR Abdomen 1 View IMPORT (07/01/2025) Anatomical Region Laterality Modality Other 07/01/2025 Narrative 07/16/2025 5:10 AM EDT Images were obtained outside of [facility] Procedure Note Provider, [facility] - 07/16/2025 Images were obtained outside of [facility] us [facility] Provider RADIOLOGY Final Result * US-US Renal IMPORT (07/01/2025) Anatomical Region Laterality Modality Other 07/01/2025 Narrative 07/16/2025 5:08 AM EDT Images were obtained outside of [facility] Procedure Note Provider, [facility] - 07/16/2025 Images were obtained outside of [facility] us [facility] Provider RADIOLOGY Final Result * CT-CT Abdomen/Pelvis w/ Contrast IMPORT (06/18/2025) Anatomical Region Laterality Modality Other 06/18/2025 Narrative 07/16/2025 5:09 AM EDT Images were obtained outside of [facility] Procedure Note Provider, [facility] - 07/16/2025 Images were obtained outside of [facility] Provider RADIOLOGY Final Result * SIGMOIDOSCOPY (11/24/2024 11:58 AM EST) Anatomical Region Laterality Modality Other 11/24/2024 11:4 5 AM EST Narrative 11/24/2024 12:04 PM EST [facility] Gastrointestinal Endoscopy Patient Name: Eron Damon Procedure Date: 11/24/2024 11:45 AM Date of : 1950 Admit Type: Outpatient Age: 74 Room: [place] [address] Gender: Male Note Status: Finalized Attending MD: Elder Ospina MD, [id number] Procedure: Flexible Sigmoidoscopy Indications: High risk colon cancer surveillance: Personal history of rectal cancer Providers: Elder Ospina MD Patient Profile: This is a 74 year old male. Refer to note in patient chart for documentation of history and physical. Last Colonoscopy: within the past 6 months. Referring Physician: Elder Ospina MD (Referring MD) [...] for surveillance. Procedure Code(s): --- Professional --- 95862, 52, Sigmoidoscopy, flexible; diagnostic, including collection of specimen(s) by brushing or washing, when performed (separate procedure) CPT copyright 2020 [employer]. All rights reserved. The codes documented in this report are preliminary and upon public health representative review may be revised to meet current compliance requirements. Attending Participation: I personally performed the entire procedure. Scope In: 11:55:49 AM Scope Out: 11:57:46 AM MD Elder Harper MD 11/24/2024 12:02:18 PM This report has been signed electronically by Elder Ospina MD Number of Addenda: 0 Note Initiated On: 11/24/2024 11:45 AM Estimated Blood Loss: Estimated blood loss: none. us Elder Ospina MD DIGESTIVE DISEASE Final Result * COLONOSCOPY SCREENING (07/21/2024 9:56 AM EDT) Anatomical Region Laterality Modality Other 07/21/2024 9:18 AM EDT Narrative 07/21/2024 10:02 AM EDT [facility] Gastrointestinal Endoscopy Patient Name: Eron Damon Procedure Date: 07/21/2024 9:18 AM Date of : 1950 Admit Type: Outpatient Age: 73 Room: [place] [address] Gender: Male Note Status: Finalized Attending MD: Elder Ospina MD, [id number] Procedure: Colonoscopy Indications: High risk colon cancer surveillance: Personal history of rectal cancer Providers: Elder Ospina MD Patient Profile: This is a 73 year old male. Refer to note in patient chart for documentation of history and physical. Last Colonoscopy: 1 year ago. Referring Physician: Elder Ospina MD (Referring MD) [...] the patient. Procedure Code(s): --- Professional --- 12663, Colonoscopy, flexible; diagnostic, including collection of specimen(s) by brushing or washing, when performed (separate procedure) CPT copyright 2020 [employer]. All rights reserved. The codes documented in this report are preliminary and upon public health representative review may be revised to meet current compliance requirements. Attending Participation: I was present and participated during the entire procedure, including non-tripp portions. Scope In: 9:26:26 AM Scope Out: 9:55:02 AM MD Elder Harper MD 07/21/2024 10:01:19 AM This report has been signed electronically by Elder Ospina MD Number of Addenda: 0 Note Initiated On: 07/21/2024 9:18 AM Estimated Blood Loss: Estimated blood loss: none. Elder Ospina MD DIGESTIVE DISEASE Final Result from Last 3 Months or Most Recently Relevant to Health Maintenance Insurance MEDICARE Member Subscriber Plan / Payer (Ef fective 2017-Present) Name:Eron Damon Member ID:[id number] Relation to Subscriber:Self Name:Eron Damon Subscriber ID:[id number] Payer ID:Not on file Group ID:Not on file Type:Medicare Address: [facility] [address] Care Teams Insurance Executive Relationship Specialty Start Date End Date Tonio Marin DO PCP - General Family Medicine 04/16/13 Sera Forbes LSW Pairer 09/26/22 Dania Key MD [address] [place] [address] Physician Radiation Oncology 10/01/22 Andree Rome, AZAEL.RELIGIOUS ASSISTANT [address] [place] [address] [place] [address] Nurse Practitioner Hematology/Oncology 10/01/22 Laurel Ríos, RN Specialty Granite Sandblaster Apprentice Colon and Rectal Surgery 02/18/23 02/19/28
--- OUTSIDE RECORDS SUMMARY | 2025-08-05 07:55 | XMS_ITS | Encounter Summary ---
Author Organization [facility] Address [address] [place] [id number] Care Team Providers Care Raise Driller Name Role Phone TomasTonio Asim HERNANDEZ Primary Care Provider [phone] Sera Forbes Unavailable Unavailable Nick Anderson MD Unavailable Unavail able Dania Key MD Unavailable [phone] Andree Rome APRN.PARKING METER COLLECTOR Unavailable [phone] Laurel Ríos RN Unavailable Unavailable Source Comments In the event this information is protected by the Federal Confidentiality of Alcohol and Drug AbusePatient Records regulations: The Federal rules restrict any use of the information to criminally investigate or prosecute any alcohol or drug abuse patient.[facility] Encounter Details Date Type Department Care Team (Late st Contact Info) Description 01/04/2025 Patient Update [facility] [address] [place], [place] [id number] Thalia Benoit Social History Tobacco Use Types Packs/Day Years Used Date Smoking Tobacco: Never Passive Smoke Exposure: Never Smokeless Tobacco: Never Alcohol Use Standard Drinks/Week Comments Yes 0 (1 standard drink = 0.6 oz pur e alcohol) rarely [facility] Utilities Answer Date Recorded In the [...] any time in the past 12 m [facility], were you homeless or living in a retirement (including now)? No 08/17/2024 Area Deprivation Index Answer Date Zander rded National Score (1-100), lower number is lower ri sk 53 02/21/2023 State Score (1-10), lower number is lower risk 3 02/21/2023 Data from: https://www.neighborhoodatlas.medicine.[facility].edu/. Last address used for calculation [address] [...] Hematology/Oncolog y [address] [place] [address] B12 09/29/2025 10:45 AM EST Infusion Center Hematology/Oncolog y [address] [place] [address] B12 10/08/2025 10:00 AM EST Office Visit Colorectal Surgery [address] [place] [address] [place] [address] [place] [address] F/up per Dr. Ospina 10/27/2025 10:45 AM EST Infusion Center Hematology/Oncolog y [address] [place] [address] B12 11/24/2025 10:45 AM EST Infusion Center Hematology/Oncolog y [address] [place] [address] B12 12/22/2025 10:30 AM EST Infusion Center Hematology/Oncolog y [address] [place] [address] 6 MONTH FOLLOW UP 12/22/2025 11:00 AM EST Visit (SP) Office Hematology/Oncolog y [address] [place] [address] Andree Rome, AZAEL.PARKING METER COLLECTOR [address] [place] [address] 6 MONTH FOLLOW UP 12/22/2025 11:30 AM EST Infusion Center Hematology/Oncolog y [address] [place] [address] 6 MONTH FOLLOW UP 07/12/2026 8:15 AM EDT Appointment Radiology Pet CT [address] [place] [address] CT CAP W IV 07/18/2026 2:40 PM EDT Visit (SP) Office Hematology/Oncolog y [address] [place] [address] Jamari Phillip MD [address] [place] [address] [address] FOLLOW UP AFTER CT SCAN documented as of this encounter Visit Diagnoses Not on filedocumented in this encounter Care Teams Raise Driller Relationship Specialty Start Date End Date Tomas Tonio DO Asim PCP - General Family Medicine 04/16/13 Sera Forbes LSW Community Relations Director 09/26/22 Nick Anderson MD Physician Hematology/Oncology 10/01/22 04/23/25 Dania Key MD [facility] [place] [place] [address] Physician Radiation Oncology 10/01/22 Andree Rome APRN.PARKING METER COLLECTOR [facility] [place] [address] [place] [address] Nurse Practitioner Hematology/Oncology 10/01/22 Laurel Ríos, RN Specialty Dishwasher Preparer Colon and Rectal Surgery 02/18/23 02/19/28 documented as of this encounter
--- OUTSIDE RECORDS SUMMARY | 2025-08-05 07:55 | XMS_ITS | Encounter Summary ---
Author Organization [facility] Address [address] [place] [address] Care Team Providers Care City Administrator Name Role Phone TomasEloyToniosaba Dailey DO Primary Care Provider [phone] Sera Forbes Unavailable Unavailable Nick Anderson MD Unavailable Unavail able Dania Key MD Unavailable [phone] Andree Rome APRN.MOTOR VEHICLE PARTS INTERPRETER Unavailable [phone] Denisha Duarte RN Unavailable [phone] Laurel Ríos RN Unavailable Unavailable Source Comments In the event this information is protected by the Federal Confidentiality of Alcohol and Drug AbusePatient Records regulations: The Federal rules restrict any use of the information to criminally investigate or prosecute any alcohol or drug abuse patient.[facility] Encounter Details Date Type Department Care Team (Late st Contact Info) Description 07/15/2023 Get Medical Advice Colorectal Surgery [address] [place], [place] [id number] [place] [address] [place], [place] [phone] This is Michael Damon. Sigmoidoscope last Saturday. Social History Tobacco Use Types Packs/Day Years Used Date Smoking Tobacco: Never Passive Smoke Exposure: Never Smokeless Tobacco: Never Alcohol Use Standard Drinks/Week Comments Yes 0 (1 standard drink = 0.6 oz pur e alcohol) rarely PHQ-2 Answer Date Recorded PHQ-2 score 0 03/13/2023 Area Deprivation Index Answer Date Zander rded National Score (1-100), lower number is lower ri sk 53 02/21/2023 State Score (1-10), lower number is lower risk 3 02/21/2023 Data from: https://www.neighborhoodatlas.medicine.[facility].edu/. Last address used for calculation [address] [...] Hematology/Oncolog y [address] [place] [address] B12 09/29/2025 10:45 AM EST Infusion Center Hematology/Oncolog y [address] [place] [address] B12 10/08/2025 10:00 AM EST Office Visit Colorectal Surgery [address] [place] [id number] [place] [address] [place] [address] F/up per Dr. Ospina 10/27/2025 10:45 AM EST Infusion Center Hematology/Oncolog y [address] [place] [address] B12 11/24/2025 10:45 AM EST Infusion Center Hematology/Oncolog y [address] [place] [address] B12 12/22/2025 10:30 AM EST Infusion Center Hematology/Oncolog y [address] [place] [address] 6 MONTH FOLLOW UP 12/22/2025 11:00 AM EST Visit (SP) Office Hematology/Oncolog y [address] [place] [address] Andree Rome, AZAEL.MOTOR VEHICLE PARTS INTERPRETER [address] [place] [address] 6 MONTH FOLLOW UP 12/22/2025 11:30 AM EST Infusion Center Hematology/Oncolog y [address] [place] [address] 6 MONTH FOLLOW UP 07/12/2026 8:15 AM EDT Appointment Radiology Pet CT [address] [place] [address] CT CAP W IV 07/18/2026 2:40 PM EDT Visit (SP) Office Hematology/Oncolog y [facility] [place] [address] [place] [address] Jamari Phillip MD [address] [place] [address] [place] [address] [address] FOLLOW UP AFTER CT SCAN documented as of this encounter Visit Diagnoses Not on filedocumented in this encounter Care Teams City Administrator Relationship Specialty Start Date End Date Tonio Marin DO PCP - General Family Medicine 04/16/13 Sera Forbes LSW Ornament Stapler 09/26/22 Nick Anderson MD Physician Hematology/Oncology 10/01/22 04/23/25 Dania Key MD [address] [place] [address] [place] [address] Physician Radiation Oncology 10/01/22 Andree Rome, AZAEL.MOTOR VEHICLE PARTS INTERPRETER [facility] [place] [address] [place] [address] Nurse Practitioner Hematology/Oncology 10/01/22 Denisha Duarte, RN [address] [place] [address] [place] [address] Specialty Beater Boss Hematology/Oncology 10/01/22 08/11/24 Laurel Ríos, RN Specialty Beater Boss Colon and Rectal Surgery 02/18/23 02/19/28 documented as of this encounter
--- OUTSIDE RECORDS SUMMARY | 2025-08-05 07:55 | XMS_ITS | Encounter Summary ---
Author Organization [facility] Address [address] [place] [address] Care Team Providers Care Specialty Sales Representative Name Role Phone Tonio Marin DO Primary Care Provider Sera Forbes Unavailable Unavailable Nick Anderson MD Unavailable Unavail able Dania Key MD Unavailable [phone] Andree Rome APRN.GRIPPER INSTALLER Unavailable [phone] Denisha Duarte RN Unavailable [phone] Laurel Ríos RN Unavailable Unavailable Source Comments In the event this information is protected by the Federal Confidentiality of Alcohol and Drug AbusePatient Records regulations: The Federal rules restrict any use of the information to criminally investigate or prosecute any alcohol or drug abuse patient.[facility] Encounter Details Date Type Department Care Team (Late st Contact Info) Description 07/24/2023 Patient Msg Colorectal Surgery [address] [place] [address] Provider, Ccf upcoming surveillance Social History Tobacco Use Types Packs/Day Years [...] is lower risk 3 02/21/2023 Data from: https://www.neighborhoodatlas.[facility]/. Last address used for [...] y [address] [place] [address] B12 09/29/2025 10:45 AM EST Infusion Center Hematology/Oncolog y [address] [place] [address] B12 10/08/2025 10:00 AM EST Office Visit Colorectal Surgery [address] [place], [place] [id number] [place] [address] [place], [place] [id number] F/up per Dr. Ospina 10/27/2025 10:45 AM EST Infusion Center Hematology/Oncolog y [address] [place] [address] B12 11/24/2025 10:45 AM EST Infusion Center Hematology/Oncolog y [address] [place] [address] B12 12/22/2025 10:30 AM EST Infusion Center Hematology/Oncolog y [address] [place] [address] 6 MONTH FOLLOW UP 12/22/2025 11:00 AM EST Visit (SP) Office Hematology/Oncolog y [address] [place] [address] Andree Rome, CONTROL OPERATOR.GRIPPER INSTALLER [address] [place] [place] [address] 6 MONTH FOLLOW UP 12/22/2025 11:30 AM [facility] Hematology/Oncolog y [address] [place] [address] 6 MONTH FOLLOW UP 07/12/2026 8:15 AM EDT Appointment Radiology Pet CT [address] [place] [address] CT CAP W IV 07/18/2026 2:40 PM EDT Visit (SP) Office Hematology/Oncolog y [address] [place] [address] Jamari Phillip MD [address] [place] [address] [address] FOLLOW UP AFTER CT SCAN documented as of this encounter Visit Diagnoses Not on filedocumented in this encounter Care Teams Specialty Sales Representative Relationship Specialty Start Date End Date Tonio Marin DO PCP - General Family Medicine 04/16/13 Sera Forbes LSW Workday Manager 09/26/22 Nick Anderson MD Physician Hematology/Oncology 10/01/22 04/23/25 Dania Key MD [address] [place] [address] [place] [address] Physician Radiation Oncology 10/01/22 Andree Rome, AZAEL.GRIPPER INSTALLER [address] [place] [address] [place] [address] Nurse Practitioner Hematology/Oncology 10/01/22 Denisha Duarte, ALEXUS [address] [place] [address] Specialty Dairy Frozen Manager Hematology/Oncology 10/01/22 08/11/24 Laurel Ríos, RN Specialty Dairy Frozen Manager Colon and Rectal Surgery 02/18/23 02/19/28 documented as of this encounter
--- OUTSIDE RECORDS SUMMARY | 2025-08-05 07:55 | XMS_ITS | Encounter Summary ---
Author Organization [facility] Address [address] [place] [address] Care Team Providers Care Network Technical Analyst Name Role Phone TomasEloyToniosaba Dailey DO Primary Care Provider [phone] Sera Forbes Unavailable Unavailable Dania Key MD Unavailable [phone] Ryan Hollis LEAF SORTER.MACROECONOMICS PROFESSOR Unavailable [phone] Laurel Ríos RN Unavailable Unavailable Source Comments In the event this information is protected by the Federal Confidentiality of Alcohol and Drug AbusePatient Records regulations: The Federal rules restrict any use of the information to criminally investigate or prosecute any alcohol or drug abuse patient.[facility] Reason for Visit * Reason Onset Date Comments Refill Request 07/12/2025 Encounter Details Date Type Department Care Team (Late st Contact Info) Description 07/12/2025 Refill [facility] [address] [place] [address] Ryan Hollis APRN.MACROECONOMICS PROFESSOR [address] [place] [address] [place] [address] Refill Request Social History Tobacco Use Types Packs/Day Years Used Date Smoking Tobacco: Never Passive Smoke Exposure: Never Smokeless Tobacco: Never Alcohol Use Standard Drinks/Week Comments Yes 0 (1 standard drink = 0.6 oz pur e alcohol) 1 beer daily [facility] Utilities Answer Date Recorded In the past [...] any time in the past 12 m [facility], were you homeless or living in a [place] health care facility (including now)? No 08/17/2024 Area Deprivation Index Answer Date Zander rded National Score (1-100), lower number is lower ri sk 53 02/21/2023 State Score (1-10), lower number is lower risk 3 02/21/2023 Data from: https://www.neighborhoodatlas.medicine.[facility] [place].edu/. Last address used for calculation [address] [...] Assessment Author No 07/29/2024 4:30 PM EDT eGni Rothman RN * Do you have difficulty [...] encounter Miscellaneous Notes * Telephone Encounter - Ryan Hollis APRN.CNP - 07/12/2025 2:33 PM EDT The following approved medication requests have been transmitted electronically. Requested Prescriptions Signed Prescriptions Disp Refills zolpidem (AMBIEN) 5 mg tablet 30 tablet 5 Sig: Take 1 tablet by mouth at bedtime as needed for up to 180 days. Authorizing Provider: RYAN HOLLIS APRN.CNP documented in this encounter Plan of Treatment Upcoming Encounters Date Type Department Care Team (Late st Contact Info) Description 09/01/2025 10:45 AM [facility] Infusion Center Hematology/Oncolog y [address] [place] [address] B12 09/29/2025 10:45 AM [facility] Infusion Center Hematology/Oncolog y [address] [place] [address] B12 10/08/2025 10:00 AM EST Office Visit Colorectal Surgery [address] [place] [address] [place] [address] [place] [address] F/up per Dr. Ospina 10/27/2025 10:45 AM EST Infusion Center Hematology/Oncolog y [address] [place] [address] B12 11/24/2025 10:45 AM EST Infusion Center Hematology/Oncolog y [address] [place] [address] B12 12/22/2025 10:30 AM EST Infusion Center Hematology/Oncolog y [address] [place] [address] 6 MONTH FOLLOW UP 12/22/2025 11:00 AM EST Visit (SP) Office Hematology/Oncolog y [address] [place] [address] Ryan Hollis, AZAEL.MACROECONOMICS PROFESSOR [address] [place] [address] 6 MONTH FOLLOW UP 12/22/2025 11:30 AM EST Infusion Center Hematology/Oncolog y [address] [place] [address] 6 MONTH FOLLOW UP 07/12/2026 8:15 AM EDT Appointment Radiology Pet CT [address] [place] [address] CT CAP W IV 07/18/2026 2:40 PM EDT Visit (SP) Office Hematology/Oncolog y [address] [place] [address] Jamari Phillip MD [address] [place] [address] 1 YEAR FOLLOW UP AFTER CT SCAN documented as of this encounter Visit Diagnoses Diagnosis Malignant neoplasm of rectum (HCC) Malignant neoplasm of rectum documented in this encounter Care Teams Network Technical Analyst Relationship Specialty Start Date End Date Tonio Marin DO PCP - General Family Medicine 04/16/13 Sera Forbes LSW Chemist Pharmaceutical 09/26/22 Dania Key MD [address] [place] [address] Physician Radiation Oncology 10/01/22 Ryan Hollis APRN.[facility] [address] [place] [address] Nurse Practitioner Hematology/Oncology 10/01/22 Laurel Ríos, RN Specialty Recreational Director Colon and Rectal Surgery 02/18/23 02/19/28 documented as of this encounter
--- OUTSIDE RECORDS SUMMARY | 2025-08-05 07:55 | XMS_ITS | Encounter Summary ---
Author Organization [facility] Address [address] [place] [address] Care Team Providers Care Weld Inspector Name Role Phone TomasTonio Asim HERNANDEZ Primary Care Provider [phone] Sera Forbes Unavailable Unavailable Nick Anderson MD Unavailable Unavail able Dania Key MD Unavailable [phone] Andree Rome APRN.FUR COMBER Unavailable [phone] Laurel Ríos RN Unavailable Unavailable Source Comments In the event this information is protected by the Federal Confidentiality of Alcohol and Drug AbusePatient Records regulations: The Federal rules restrict any use of the information to criminally investigate or prosecute any alcohol or drug abuse patient.[facility] Encounter Details Date Type Department Care Team (Late st Contact Info) Description 09/10/2024 Telephone [facility] Radiology Procedure [address] [place] [address] Oliva Ramírez, RN Social History Tobacco Use Types Packs/Day Years Used Date Smoking Tobacco: Never Passive Smoke Exposure: Never Smokeless Tobacco: Never Alcohol Use Standard Drinks/Week Comments Yes 0 (1 standard drink = 0.6 oz pur e alcohol) rarely [facility] Utilities Answer Date Recorded In the past [...] any time in the past 12 m [facility], were you homeless or living in a fdc (including now)? No 08/17/2024 Area Deprivation Index Answer Date Zander rded National Score (1-100), lower number is lower ri sk 53 02/21/2023 State Score (1-10), lower number is lower risk 3 02/21/2023 Data from: https://www.neighborhoodatlas.medicine.[facility].edu/. Last address used for calculation [address] [...] Hematology/Oncolog y [address] [place] [address] B12 09/29/2025 10:45 AM EST Infusion Center Hematology/Oncolog y [address] [place] [address] B12 10/08/2025 10:00 AM EST Office Visit Colorectal Surgery [address] [place] [id number] [place] [address] [place] [address] F/up per Dr. Ospina 10/27/2025 10:45 AM EST Infusion Center Hematology/Oncolog y [address] [place] [address] B12 11/24/2025 10:45 AM EST Infusion Center Hematology/Oncolog y [address] [place] [address] B12 12/22/2025 10:30 AM EST Infusion Center Hematology/Oncolog y [address] [place] [address] 6 MONTH FOLLOW UP 12/22/2025 11:00 AM EST Visit (SP) Office Hematology/Oncolog y [facility] [place] [address] [place] [address] Andree Rome, AZAEL.FUR COMBER [facility] [place] [address] [place] [address] 6 MONTH FOLLOW UP 12/22/2025 11:30 AM EST Infusion Center Hematology/Oncolog y [facility] [place] [address] [address] 6 MONTH FOLLOW UP 07/12/2026 8:15 AM EDT Appointment Radiology Pet CT [facility] [place] [place] [address] CT CAP W IV 07/18/2026 2:40 PM EDT Visit (SP) Office Hematology/Oncolog y [facility] [place] [place] [address] Jamari Phillip MD [facility] [place] [address] [place] [address] 1 YEAR FOLLOW UP AFTER CT SCAN documented as of this encounter Visit Diagnoses Not on filedocumented in this encounter Care Teams Weld Inspector Relationship Specialty Start Date End Date Tonio Marin DO PCP - General Family Medicine 04/16/13 Sera Forbes LSW [facility] 09/26/22 Nick Anderson MD Physician Hematology/Oncology 10/01/22 04/23/25 Dania Key MD [facility] [place] [address] [place] [address] Physician Radiation Oncology 10/01/22 Andree Rome, AZAEL.FUR COMBER [facility] [place] [place] [address] Nurse Practitioner Hematology/Oncology 10/01/22 Laurel Ríos, RN Specialty Machine Pan Greaser Colon and Rectal Surgery 02/18/23 02/19/28 documented as of this encounter
--- OUTSIDE RECORDS SUMMARY | 2025-08-05 07:55 | XMS_ITS | Encounter Summary ---
Author Organization Address [address] [place] [address] Care Team Providers Care Dip Stand Loader Name Role Phone Tomas Tonio Dailey DO Primary Care Provider [phone] Sera Forbes Unavailable Unavailable Dania Key MD Unavailable [phone] Andree Rome APRN.PROJECT DESIGN ENGINEER Unavailable [phone] Laurel Ríos RN Unavailable Unavailable Source Comments In the event this information is protected by the Federal Confidentiality of Alcohol and Drug AbusePatient Records regulations: The Federal rules restrict any use of the information to criminally investigate or prosecute any alcohol or drug abuse patient. Reason for Visit * Reason Comments Patient Update B12 & labs Encounter Details Date Type Department Care Team (Late st Contact Info) Description 07/28/2025 Telephone Hematology/Oncology [address] [place] [address] [place] [address] Jamari Phillip MD [address] [place] [address] [place] [address] Patient Update (B12 & labs) Social History Tobacco Use Types Packs/Day Years Used Date Smoking Tobacco: Never Passive Smoke Exposure: Never Smokeless Tobacco: Never Alcohol Use Standard Drinks/Week Comments Yes 0 (1 standard drink = 0.6 oz pur e alcohol) 1 beer daily [facility] Utilities Answer Date Recorded In the [...] were you homeless or living in a residential (including now)? No 08/17/2024 Area Deprivation Index Answer Date Zander rded National Score (1-100), lower number is lower ri sk 53 02/21/2023 State Score (1-10), lower number is lower risk 3 02/21/2023 Data from: https://www.neighborhoodatlas.medicine.[facility].edu/. Last address used for calculation [address] [...] encounter Miscellaneous Notes * Telephone Encounter - Gretchen Hernandez RN - 07/28/2025 1:11 PM EDT Spoke with Dr. Phillip about patient needing labs with today's appointment, but patient had them drawn 07/19/25. Physician stated patient does not need labs however B12 was very low and needs 2 moreB12 injections. Patient received first dose 07/19/25, will receive 2nd dose today (08/02/25) and 3rddose 08/04/25. Patient will return in 4 weeks from 08/04 and start monthly injections. Patient does not need a follow up for labs at this time per Dr Phillip. Gretchen Hernandez RN documented in this encounter Plan of Treatment Upcoming Encounters Date Type Department Care Team (Late st Contact Info) Description 09/01/2025 10:45 AM EST Infusion Center Hematology/Oncolog y [address] [place] [address] B12 09/29/2025 10:45 AM EST Infusion Center Hematology/Oncolog y [address] [place] [address] B12 10/08/2025 10:00 AM EST Office Visit Colorectal Surgery [address] [place], [place] [address] [place] [address] [place], [place] [id number] F/up per Dr. Ospina 10/27/2025 10:45 AM EST Infusion Center Hematology/Oncolog y [address] [place] [address] B12 11/24/2025 10:45 AM EST Infusion Center Hematology/Oncolog y [address] [place] [address] B12 12/22/2025 10:30 AM EST Infusion Center Hematology/Oncolog y [address] [place] [address] 6 MONTH FOLLOW UP 12/22/2025 11:00 AM EST Visit (SP) Office Hematology/Oncolog y [address] [place] [address] Andree Rome, GOLD LEAF GILDER.PROJECT DESIGN ENGINEER [address] [place] [address] 6 MONTH FOLLOW UP 12/22/2025 11:30 AM EST Infusion Center Hematology/Oncolog y [address] [place] [address] 6 MONTH FOLLOW UP 07/12/2026 8:15 AM EDT Appointment Radiology Pet CT [address] [place] [address] CT CAP W IV 07/18/2026 2:40 PM EDT Visit (SP) Office Hematology/Oncolog y [address] [place] [address] Jamari Phillip MD [address] [place] [address] 1 YEAR FOLLOW UP AFTER CT SCAN documented as of this encounter Visit Diagnoses Not on filedocumented in this encounter Care Teams Dip Stand Loader Relationship Specialty Start Date End Date Tonio Marin DO PCP - General Family Medicine 04/16/13 Sera Forbes LSW Fire Manager 09/26/22 Dania Key MD [address] [address] Physician Radiation Oncology 10/01/22 Andree Rome APRN.[facility] [place] [address] Nurse Practitioner Hematology/Oncology 10/01/22 Laurel Ríos, RN Specialty Model Maker Plastic Colon and Rectal Surgery 02/18/23 02/19/28 documented as of this encounter
--- OUTSIDE RECORDS SUMMARY | 2025-08-05 07:55 | XMS_ITS | Encounter Summary ---
Author Organization [facility] Address [address] [place] [address] Care Team Providers Care Hotel Maid Name Role Phone Tonio Marin MD Primary Care Provider Encounter Details Date Type Department Care Team (Late st Contact Info) Description 09/24/2024 Abstract [facility] [address] [place] [address] Twan Campo, PA [address] [place] [address] Social History Tobacco Use Types Packs/Day Years Used Date Smoking Tobacco: Never Smokeless Tobacco: Never Alcohol Use Standard Drinks/Week Comments Yes 0 (1 standard drink = 0.6 oz pure alcohol) 2-4 times a month. caffeine intake: 3 cups per day. Sex and Gender Information Value Date Recorded Sex Assigned at Not on file Legal Sex Male 8:35 PM EDT Gender Identity Not on file Sexual Orientation Not on file documented as of this encounter Plan of Treatment Not on file documented as of this encounter Visit Diagnoses Not on filedocumented in this encounter Care Teams Hotel Maid Relationship Specialty Start Date End Date Tonio Marin MD [address] [place] [address] PCP - General Email Production Specialist 05/02/23 documented as of this encounter
--- OUTSIDE RECORDS SUMMARY | 2025-08-05 07:55 | XMS_ITS | Encounter Summary ---
Author Organization [facility] Address [address] [place] [address] Care Team Providers Care Therapist Phys Name Role Phone Tonio Marin DO Primary Care Provider [phone] Sera Forbes Unavailable Unavailable Nick Anderson MD Unavailable Unavail able Dania Key MD Unavailable [phone] Andree Rome APRN.SIDE SEAM MACHINE OPERATOR Unavailable Denisha Duarte RN Unavailable [phone] Laurel Ríos RN Unavailable Unavailable Source Comments In the event this information is protected by the Federal Confidentiality of Alcohol and Drug AbusePatient Records regulations: The Federal rules restrict any use of the information to criminally investigate or prosecute any alcohol or drug abuse patient.[facility] Encounter Details Date Type Department Care Team (Late st Contact Info) Description 12/19/2022 Patient [facility] Radiology Procedure [address] [facility] [place] [address] Provider, Ignacio You are scheduled for a Mediport placement, On 12/20/2022. Social History Tobacco Use Types Packs/Day Years Used Date Smoking Tobacco: Never Smokeless Tobacco: Never Alcohol Use Standard Drinks/Week Comments Yes 0 (1 standard drink = 0.6 oz pur e alcohol) rarely PHQ-2 Answer Date Recorded PHQ-2 score 0 10/02/2022 Area Deprivation Index Answer Date Zander rded National Score (1-100), lower number is lower ri sk 46 11/02/2022 State Score (1-10), lower number is lower risk N ot on file 11/02/2022 Data from: https://www.neighborhoodatlas.medicine.[facility]/. Last address used for calculation [address] 11/02/2022 Sex and Gender Information Value Date Recorded Sex Assigned at Not on file Legal Sex Male 9:37 AM EDT Gender Identity Not on file Sexual Orientation Not on file documented as of this encounter Plan of Treatment Upcoming Encounters Date Type Department Care Team (Late st Contact Info) Description 09/01/2025 10:45 AM EST Infusion Center Hematology/Oncolog y [address] [place] [address] B12 09/29/2025 10:45 AM EST Infusion Center Hematology/Oncolog y [address] [place] [address] B12 10/08/2025 10:00 AM EST Office Visit Colorectal Surgery [address] [place], [place] [address] [place] [address] [place], [place] [phone] F/up per Dr. Ospina 10/27/2025 10:45 AM EST Infusion Center Hematology/Oncolog y [address] [place] [address] B12 11/24/2025 10:45 AM EST Infusion Center Hematology/Oncolog y [address] [place] [address] B12 12/22/2025 10:30 AM EST Infusion Center Hematology/Oncolog y [address] [place] [address] 6 MONTH FOLLOW UP 12/22/2025 11:00 AM EST Visit (SP) Office Hematology/Oncolog y [address] [place] [address] Andree Rome, [employer].SIDE SEAM MACHINE OPERATOR [address] [place] [address] 6 MONTH FOLLOW UP 12/22/2025 11:30 AM [facility] Hematology/Oncolog y [facility] [address] [address] 6 MONTH FOLLOW UP 07/12/2026 8:15 AM EDT Appointment Radiology Pet CT [address] [place] [address] CT CAP W IV 07/18/2026 2:40 PM EDT Visit (SP) Office Hematology/Oncolog y [facility] [place] [address] [place] [address] Jamari Phillip MD [facility] [place] [address] [place] [address] 1 YEAR FOLLOW UP AFTER CT SCAN documented as of this encounter Visit Diagnoses Not on filedocumented in this encounter Care Teams Therapist Phys Relationship Specialty Start Date End Date Tonio Marin DO PCP - General Family Medicine 04/16/13 Sera Forbes LSW Human Resource Statistician 09/26/22 Nick Anderson MD Physician Hematology/Oncology 10/01/22 04/23/25 Dania Key MD [address] [place] [address] [place] [address] Physician Radiation Oncology 10/01/22 Andree Rome, AZAEL.SIDE SEAM MACHINE OPERATOR [facility] [place] [address] [address] Nurse Practitioner Hematology/Oncology 10/01/22 Denisha Duarte, ALEXUS [address] [place] [address] [place] [address] Specialty Supervisor Roving Hematology/Oncology 10/01/22 08/11/24 Laurel Ríos, RN Specialty Supervisor [place] Colon and Rectal Surgery 02/18/23 02/19/28 documented as of this encounter
--- OUTSIDE RECORDS SUMMARY | 2025-08-05 07:55 | XMS_ITS | Encounter Summary ---
Author Organization [facility] Address [address] [place] [address] Care Team Providers Care Yardage Caller Name Role Phone Tonio Marin DO Primary Care Provider [phone] Sera Forbes Unavailable Unavailable Nick Anderson MD Unavailable Unavail able Dania Key MD Unavailable [phone] Andree Rome APRN.FORM SETTER STEEL PAN FORMS Unavailable [phone] Denisha Duarte RN Unavailable [phone] Laurel Ríos RN Unavailable Unavailable Source Comments In the event this information is protected by the Federal Confidentiality of Alcohol and Drug AbusePatient Records regulations: The Federal rules restrict any use of the information to criminally investigate or prosecute any alcohol or drug abuse patient.[facility] Encounter Details Date Type Department Care Team (Late st Contact Info) Description 05/03/2023 Patient Msg Colorectal Surgery [address] [place] [address] Provider, Ccyvonne sigmoidoscopy 07/09/23 Social History Tobacco Use Types Packs/Day Years [...] is lower risk 3 02/21/2023 Data from: https://www.neighborhoodatlas.[facility]/. Last address used for calculation [...] Hematology/Oncolog y [address] [place] [address] B12 09/29/2025 10:45 AM EST Infusion Center Hematology/Oncolog y [address] [place] [address] B12 10/08/2025 10:00 AM EST Office Visit Colorectal Surgery [address] [place], [place] [address] [place] [address] [place], [place] [address] F/up per Dr. Ospina 10/27/2025 10:45 AM EST Infusion Center Hematology/Oncolog y [address] [place] [address] B12 11/24/2025 10:45 AM EST Infusion Center Hematology/Oncolog y [address] [place] [address] B12 12/22/2025 10:30 AM EST Infusion Center Hematology/Oncolog y [address] [place] [address] 6 MONTH FOLLOW UP 12/22/2025 11:00 AM EST Visit (SP) Office Hematology/Oncolog y [address] [place] [address] Andree Rome, AZAEL.FORM SETTER STEEL PAN FORMS [address] [place] [address] 6 MONTH FOLLOW UP 12/22/2025 11:30 AM [facility] Hematology/Oncolog y [address] [place] [address] 6 MONTH FOLLOW UP 07/12/2026 8:15 AM EDT Appointment Radiology Pet CT [address] [place] [address] CT CAP W IV 07/18/2026 2:40 PM EDT Visit (SP) Office Hematology/Oncolog y [facility] [place] [address] [place] [address] Jamari Phillip MD [address] [place] [address] 1 YEAR FOLLOW UP AFTER CT SCAN documented as of this encounter Visit Diagnoses Not on filedocumented in this encounter Care Teams Yardage Caller Relationship Specialty Start Date End Date Tonio Marin DO PCP - General Family Medicine 04/16/13 Sera Forbes LSW Otr Company Driver 09/26/22 Nikc Anderson MD Physician Hematology/Oncology 10/01/22 04/23/25 Dania Key MD [facility] [place] [address] [place] [address] Physician Radiation Oncology 10/01/22 Andree Rome APRN.FORM SETTER STEEL PAN FORMS [facility] [place] [address] [place] [address] Nurse Practitioner Hematology/Oncology 10/01/22 Denisha Duarte, ALEXUS [facility] [place] [address] [place] [address] Specialty Train Driver Hematology/Oncology 10/01/22 08/11/24 Laurel Ríos, RN Specialty Train Driver Colon and Rectal Surgery 02/18/23 02/19/28 documented as of this encounter
--- OUTSIDE RECORDS SUMMARY | 2025-08-05 07:55 | XMS_ITS | Encounter Summary ---
Author Organization [facility] Address [address] [place] [address] Care Team Providers Care Ladle Repairman Name Role Phone Tonio Marin DO Primary Care Provider [phone] Sera Forbes Unavailable Unavailable Nick Anderson MD Unavailable Unavail able Dania Key MD Unavailable [phone] Andree Rome APRN.GAMING INVESTIGATOR Unavailable [phone] Denisha Duarte RN Unavailable [phone] Laurel Ríos RN Unavailable Unavailable Source Comments In the event this information is protected by the Federal Confidentiality of Alcohol and Drug AbusePatient Records regulations: The Federal rules restrict any use of the information to criminally investigate or prosecute any alcohol or drug abuse patient.[facility] Encounter Details Date Type Department Care Team (Late st Contact Info) Description 07/21/2024 Patient Msg Colorectal Surgery [address] [place] [address] Provider, Ccyvonne sigmoidoscopy Oct/Nov 2024 Social History Tobacco Use Types Packs/Day Years Used Date Smoking Tobacco: Never Passive Smoke Exposure: Never Smokeless Tobacco: Never Alcohol Use Standard Drinks/Week Comments Yes 0 (1 standard drink = 0.6 oz pur e alcohol) rarely PHQ-2 Answer Date Recorded PHQ-2 score 0 03/11/2024 PRAPARE - Transportation Answer Date Re corded In the past 12 months, has l ack of transportation kept you from medical appointments or from getting medications? No 12/2023 In the past 12 months, has l ack of transportation kept you from meetings, work, or from getting things needed for daily living? No 07/23/2024 Area Deprivation Index Answer Date Zander rded National Score (1-100), lower number is lower ri sk 53 02/21/2023 State Score (1-10), lower number is lower risk 3 02/21/2023 Data from: https://www.neighborhoodatlas.medicine.[facility].edu/. Last address used for calculation [address] [...] Hematology/Oncolog y [address] [place] [address] B12 09/29/2025 10:45 AM EST Infusion Center Hematology/Oncolog y [address] [place] [address] B12 10/08/2025 10:00 AM EST Office Visit Colorectal Surgery [address] [place] [address] [place] [address] [place], [place] [id number] F/up per Dr. Ospina 10/27/2025 10:45 AM EST Infusion Center Hematology/Oncolog y [address] [place] [address] B12 11/24/2025 10:45 AM EST Infusion Center Hematology/Oncolog y [address] [place] [address] B12 12/22/2025 10:30 AM EST Infusion Center Hematology/Oncolog y [address] [place] [address] 6 MONTH FOLLOW UP 12/22/2025 11:00 AM EST Visit (SP) Office Hematology/Oncolog y [address] [place] [address] Andree Rome, AZAEL.GAMING INVESTIGATOR [address] [place] [address] 6 MONTH FOLLOW UP 12/22/2025 11:30 AM EST Infusion Center Hematology/Oncolog y [address] [place] [address] 6 MONTH FOLLOW UP 07/12/2026 8:15 AM EDT Appointment Radiology Pet CT [address] [place] [address] CT CAP W IV 07/18/2026 2:40 PM EDT Visit (SP) Office Hematology/Oncolog y [address] [place] [address] Jamari Phillip MD [address] [place] [address] 1 YEAR FOLLOW UP AFTER CT SCAN documented as of this encounter Visit Diagnoses Not on filedocumented in this encounter Care Teams Ladle Repairman Relationship Specialty Start Date End Date Tonio Marin DO PCP - General Family Medicine 04/16/13 Sera Forbes LSW Scuba Instructor 09/26/22 Nick Anderson MD Physician Hematology/Oncology 10/01/22 04/23/25 Dania Key MD [facility] [place] [address] [place] [address] Physician Radiation Oncology 10/01/22 Andree Rome APRN.GAMING INVESTIGATOR [address] [place] [address] Nurse Practitioner Hematology/Oncology 10/01/22 Denisha Duarte, ALEXUS [address] [place] [address] [place] [address] Specialty Client Executive Hematology/Oncology 10/01/22 08/11/24 Laurel Ríos, RN Specialty Client Executive Colon and Rectal Surgery 02/18/23 02/19/28 documented as of this encounter
--- OUTSIDE RECORDS SUMMARY | 2025-08-05 07:55 | XMS_ITS | Encounter Summary ---
Author Organization [facility] Address [facility] [place] [address] Care Team Providers Care Construction Electrician Name Role Phone Tonio Marin DO Primary Care Provider [phone] Sera Forbes Unavailable Unavailable Nick Anderson MD Unavailable Unavail able Dania Key MD Unavailable [phone] Andree Rome APRN.VESSEL WELDER Unavailable [phone] Denisha Duaret RN Unavailable [phone] Laurel Ríos RN Unavailable Unavailable Source Comments In the event this information is protected by the Federal Confidentiality of Alcohol and Drug AbusePatient Records regulations: The Federal rules restrict any use of the information to criminally investigate or prosecute any alcohol or drug abuse patient.[facility] Encounter Details Date Type Department Care Team (Late st Contact Info) Description 02/12/2024 [place] [address] Provider, [facility] 2022 Influenza Season Social History Tobacco Use Types Packs/Day Years [...] risk 3 02/21/2023 Data from: https://www.neighborhoodatlas.medicine.[facility].edu/. Last address used for calculation [address] [...] Hematology/Oncolog y [address] [place] [address] B12 09/29/2025 10:45 AM EST Infusion Center Hematology/Oncolog y [address] [place] [address] B12 10/08/2025 10:00 AM EST Office Visit Colorectal Surgery [address] [place], [place] [address] [place] [address] [place], [place] [address] F/up per Dr. Ospina 10/27/2025 10:45 AM EST Infusion Center Hematology/Oncolog y [address] [place] [address] B12 11/24/2025 10:45 AM EST Infusion Center Hematology/Oncolog y [address] [place] [address] B12 12/22/2025 10:30 AM EST Infusion Center Hematology/Oncolog y [address] [place] [address] 6 MONTH FOLLOW UP 12/22/2025 11:00 AM EST Visit (SP) Office Hematology/Oncolog y [address] [place] [address] nAdree Rome, SHAREPOINT ENGINEER.VESSEL WELDER [address] [place] [address] 6 MONTH FOLLOW UP 12/22/2025 11:30 AM [facility] Hematology/Oncolog y [address] [place] [address] 6 MONTH FOLLOW UP 07/12/2026 8:15 AM EDT Appointment Radiology Pet CT [address] [place] [address] CT CAP W IV 07/18/2026 2:40 PM EDT Visit (SP) Office Hematology/[place]colog [place] [address] [place] [address] Jamari Phillip MD [address] [place] [address] 1 YEAR FOLLOW UP AFTER CT SCAN documented as of this encounter Visit Diagnoses Not on filedocumented in this encounter Care Teams Construction Electrician Relationship Specialty Start Date End Date Tonio Marin DO PCP - General Family Medicine 04/16/13 Sera Forbes LSW Transfer Engineer 09/26/22 Nick Anderson MD Physician Hematology/Oncology 10/01/22 04/23/25 Dania Key MD [facility] [place] [address] [place] [address] Physician Radiation Oncology 10/01/22 Andree Rome, AZAEL.VESSEL WELDER [address] [place] [address] Nurse Practitioner Hematology/Oncology 10/01/22 Denisha Duarte, ALEXUS [address] [place] [address] Specialty Housing Installer Hematology/Oncology 10/01/22 08/11/24 Ríos, Laurel M, RN Specialty Housing Installer Colon and Rectal Surgery 02/18/23 02/19/28 documented as of this encounter
--- OUTSIDE RECORDS SUMMARY | 2025-08-05 07:55 | XMS_ITS | Encounter Summary ---
Author Organization [facility] Address [address] [place] [address] Care Team Providers Care Casting Machine Operator Automatic Name Role Phone TomasEloyToniosaba Dailey DO Primary Care Provider [phone] Sera Forbes Unavailable Unavailable Nick Anderson MD Unavailable Unavail able Dania Key MD Unavailable [phone] Andree Rome APRN.CONTRACT PROJECT MANAGER Unavailable [phone] Denisha Duarte RN Unavailable [phone] Laurel Ríos RN Unavailable Unavailable Source Comments In the event this information is protected by the Federal Confidentiality of Alcohol and Drug AbusePatient Records regulations: The Federal rules restrict any use of the information to criminally investigate or prosecute any alcohol or drug abuse patient.[facility] Encounter Details Date Type Department Care Team (Late st Contact Info) Description 06/29/2024 Patient Msg Colorectal Surgery [address] [place] [place], [place] [address] [place] [address] [place], [place] [phone] Colonoscopy Prep Instructions Social History Tobacco Use Types [...] lower risk 3 02/21/2023 Data from: https://www.neighborhoodatlas.medicine.[facility]/. Last address used for calculation [address] [...] Hematology/Oncolog y [address] [place] [address] B12 09/29/2025 10:45 AM EST Infusion Center Hematology/Oncolog y [address] [place] [address] B12 10/08/2025 10:00 AM EST Office Visit Colorectal Surgery [address] [place] [address] [place] [address] [place] [address] F/up per Dr. Ospina 10/27/2025 10:45 AM EST Infusion Center Hematology/Oncolog y [address] [place] [address] B12 11/24/2025 10:45 AM EST Infusion Center Hematology/Oncolog y [address] [place] [address] B12 12/22/2025 10:30 AM EST Infusion Center Hematology/Oncolog y [address] [place] [address] 6 MONTH FOLLOW UP 12/22/2025 11:00 AM EST Visit (SP) Office Hematology/Oncolog y [address] [place] [address] Andree Rome, AZAEL.CONTRACT PROJECT MANAGER [address] [place] [address] 6 MONTH FOLLOW UP 12/22/2025 11:30 AM EST Infusion Center Hematology/Oncolog y [address] [place] [address] 6 MONTH FOLLOW UP 07/12/2026 8:15 AM EDT Appointment Radiology Pet CT [address] [place] [address] CT CAP W IV 07/18/2026 2:40 PM EDT Visit (SP) Office Hematology/Oncolog y [address] [place] [address] Jamari Phillip MD [address] [place] [address] 1 YEAR FOLLOW UP AFTER CT SCAN documented as of this encounter Visit Diagnoses Not on filedocumented in this encounter Care Teams Casting Machine Operator Automatic Relationship Specialty Start Date End Date Tonio Marin DO PCP - General Family Medicine 04/16/13 Sera Forbes LSW Pipe Fitter Street Service 09/26/22 Nick Anderson MD Physician Hematology/Oncology 10/01/22 04/23/25 Dania Key MD [address] [place] [address] Physician Radiation Oncology 10/01/22 Andree Rome APRN.CONTRACT PROJECT MANAGER [address] [place] [address] Nurse Practitioner Hematology/Oncology 10/01/22 Denisha Duarte, RN [address] [place] [address] [place] [address] Specialty Roller Leveler Hematology/Oncology 10/01/22 08/11/24 Laurel Ríos RN Specialty Roller Leveler Colon and Rectal Surgery 02/18/23 02/19/28 documented as of this encounter
--- OUTSIDE RECORDS SUMMARY | 2025-08-05 07:55 | XMS_ITS ---
Author Organization [facility] Address [address] [place] [address] Care Team Providers Care E Tailer Name Role Phone Tonio Marin DO Primary Care Provider [phone] Sera Forbes SUPERCALENDER OPERATOR Unavailable Unavailable Dania Key MD Unavailable [phone] Andree Rome DONOR RELATIONS OFFICER.PHILOSOPHY INSTRUCTOR Unavailable [phone] Laurel Ríos RN Unavailable Unavailable Active Problems Problem Noted Date Diagnosed Date Megaloblastic anemia due to vitamin B12 deficien cy 07/19/2025 Intraabdominal fluid collection 08/14/2024 Perforation bowel 07/29/2024 S/P right colectomy 07/29/2024 Pneumoperitoneum 07/23/2024 Obesity, Class I, BMI 30-34.9 07/23/2024 Non-ischemic cardiomyopathy 11/05/2023 RA (rheumatoid arthritis) 11/05/2023 Rectal cancer 12/17/2022 Pulmonary embolus with infarction 08/04/2018 Current Treatment and Therapy Plans No current plan information found. Other Current Plans AMB CYANOCOBALAMIN 1000 D1,29,57 - Q84D* Plan Start Date:07/19/2025 Plan Provider:Jamari Phillip MD Linked Problems Megaloblastic anemia due to vitamin B12 deficiency Treatment Medications Current Day (Day 1 , Cycle 2 - Planned for 09/01/2025) Next Day (Day 29, Cycle 2 - Planned for 09/29/2025) No medications scheduled. No medications schedul ed. No medications scheduled. Past Treatment and Therapy Plans ONCOLOGY REGIMEN Plan Name Start Date Discontinue Date Treatment Medications Discontinue Reason Plan Provider Cycles AMB MODIFIED FOLFOX 6 - OXALIPLATIN 85 5FU 400 IVP D1 5FU 2400 CADD OVER 46 HRS - Q14D 3 06/21/2023 fluorouracil (ADRUCIL)fluorouracil iv infusion CASSETTE (ADRUCIL)with rateleucovorin iv piggybackoxaliplatin iv piggyback in D5W 500 mL (ELOXATIN)palonosetron (ALOXI) Other Nick Anderson MD 7 of 7 cycles started
--- OUTSIDE RECORDS SUMMARY | 2025-08-05 07:55 | XMS_ITS | Clinical Summary ---
Author Organization [facility] Address [address] [place] [address] Care Team Providers Care Csm Consultant Name Role Phone Tonio Marin MD Primary Care Provider Allergies No known active allergies Medications predniSONE (Deltasone) 5 MG tablet Take 5 mg by mouth in the morning. 2 Active hydroCHLOROthiazi de (HYDRODiuril) 12.5 MG tablet Take by mouth. Active carvedilol (Coreg) 6.25 MG tablet Take 6.25 mg by mouth in the morning and 6.25 mg in the evening. Take with meals. 2 Active tamsulosin (Flomax) 0.4 MG 24 hr capsule Take 1 capsule every day by oral route. 2 Active valsartan (Diovan) 80 MG tablet Take 1 tablet by mouth in the morning. 2 Active Ascorbic Acid (Vitamin C) 500 MG capsule Take by mouth. Active calcium carbonate (Calcium 600) 600 MG tablet Take 600 mg by mouth in the morning and 600 mg in the evening. Take with meals. Active Misc Natural Products (GLUCOSAMINE CHOND CMP ADVANCED PO) Take by mouth. Active Rivaroxaban (XARELTO PO) Take by mouth Active finasteride (Proscar) 5 MG tablet Take 5 mg by mouth Daily Do not crush, chew, or split. Active benzoyl peroxide 5 % external washIndications:B acterial folliculitis Lather on scalp then rinse well daily, 90 day supply 681 g 3 4 Active clindamycin (Clindagel) 1 % gelIndications:Ba cterial folliculitis Apply to scalp once a day/90 days 180 g 3 4 Active Active Problems No known active problems Family History Medical History Relation Name Comments Osteoarthritis Brother Kidney cancer Father Pancreatic cancer Mother Liver cancer Sibling Relation Name Status Comments Brother Father Mother Sibling Social History Tobacco Use Types Packs/Day Years [...] Sign Reading Time Taken Comments Blood Pressure 127/77 10/27/2021 12:00 PM EST Pulse - - Temperature - - Respiratory Rate - - Oxygen Saturation - - Inhaled Oxygen Concentration - - Weight 113 kg (250 lb) 05/05/2024 11:02 AM EDT Height 188 cm (6' 2 ) 05/05/2024 11:02 AM EDT Body Mass Index 32.1 05/05/2024 11:02 AM EDT Plan of Treatment Health Maintenance Due Date Last Done Comments CT Colonography 1952 FIT-DNA 1952 FIT 1952 FOBT 1950 Influenza Vaccine (#1) 2025 , 07/21/2020, 07/27/2019 Sigmoidoscopy 11/24/2029 11/24/2024, 02/25/2024 Colonoscopy 07/21/2034 07/21/2024, 1010/2023, 04/09/2023, Additional history exists Colorectal Cancer Screening 07/21/2034 Pneumococcal Vaccine: 65+ Years Completed 9, 07/14/2018 Insurance MEDICARE [facility] [place] [id number] Care Teams Csm Consultant Relationship Specialty Start Date End Date Tonio Marin MD [address] [place] [address] PCP - General Tissue Specialist 05/02/23
--- OUTSIDE RECORDS SUMMARY | 2025-08-05 07:55 | XMS_ITS | Encounter Summary ---
Author Organization [facility] Address [address] [place] [address] Care Team Providers Care Manufacturing Development Engineer Name Role Phone TomasEloyToniosaba Dailey DO Primary Care Provider [phone] Sera Forbes Unavailable Unavailable Nick Anderson MD Unavailable Unavail able Dania Key MD Unavailable [phone] Andree Rome APRN.CP BLEACHER OPERATOR Unavailable [phone] Denisha Duarte RN Unavailable [phone] Laurel Ríos RN Unavailable Unavailable Source Comments In the event this information is protected by the Federal Confidentiality of Alcohol and Drug AbusePatient Records regulations: The Federal rules restrict any use of the information to criminally investigate or prosecute any alcohol or drug abuse patient.[facility] Encounter Details Date Type Department Care Team (Late st Contact Info) Description 06/05/2024 Patient Msg Colorectal Surgery [address] [place], [place] [id number] [place] [address] [place], [place] [phone] Colonoscopy Prep Instructions Social History Tobacco Use [...] is lower risk 3 02/21/2023 Data from: https://www.neighborhoodatlas.medicine.[facility]/. Last address used for calculation [...] y [address] [place] [address] B12 09/29/2025 10:45 AM EST Infusion Center Hematology/Oncolog y [address] [place] [address] B12 10/08/2025 10:00 AM EST Office Visit Colorectal Surgery [address] [place] [address] [place] [address] [place] [address] F/up per Dr. Ospina 10/27/2025 10:45 AM EST Infusion Center Hematology/Oncolog y [address] [place] [address] B12 11/24/2025 10:45 AM EST Infusion Center Hematology/Oncolog y [address] [place] [address] B12 12/22/2025 10:30 AM EST Infusion Center Hematology/Oncolog y [address] [place] [address] 6 MONTH FOLLOW UP 12/22/2025 11:00 AM EST Visit (SP) Office Hematology/Oncolog y [address] [place] [address] Andree Rome, AZAEL.CP BLEACHER OPERATOR [address] [place] [address] 6 MONTH FOLLOW UP 12/22/2025 11:30 AM EST Infusion Center Hematology/Oncolog y [address] [place] [address] 6 MONTH FOLLOW UP 07/12/2026 8:15 AM EDT Appointment Radiology Pet CT [address] [place] [address] CT CAP W IV 07/18/2026 2:40 PM EDT Visit (SP) Office Hematology/Oncolog y [address] [place] [address] Jamari Phillip MD [address] [place] [address] 1 YEAR FOLLOW UP AFTER CT SCAN documented as of this encounter Visit Diagnoses Not on filedocumented in this encounter Care Teams Manufacturing Development Engineer Relationship Specialty Start Date End Date Tonio Marin DO PCP - General Family Medicine 04/16/13 Sera Forbes LSW Pig Conveyor Operator 09/26/22 Nick Anderson MD Physician Hematology/Oncology 10/01/22 04/23/25 Dania Key MD [address] [place] [address] Physician Radiation Oncology 10/01/22 Andree Rome APRN.CP BLEACHER OPERATOR [address] [place] [address] Nurse Practitioner Hematology/Oncology 10/01/22 Denisha Duarte, RN [address] [place] [address] [place] [address] Specialty Medicaid Billing Specialist Hematology/Oncology 10/01/22 08/11/24 Laurel Ríos RN Specialty Medicaid Billing Specialist Colon and Rectal Surgery 02/18/23 02/19/28 documented as of this encounter
--- OUTSIDE RECORDS SUMMARY | 2025-08-05 07:55 | XMS_ITS | Encounter Summary ---
Author Organization [facility] Address [address] [place] [address] Care Team Providers Care [employer] Home Economics Teacher Name Role Phone Tomas Tonio S Primary Care Provider [phone] Encounter Details Date Type Department Care Team (Late st Contact Info) Description 09/20/2022 Lab Requisition [facility] Lab [address] [place] [id number] Thalia Fam MD [address] [facility] [address] [place] [address] Social History Tobacco Use Types Packs/Day Years Used Date Smoking Tobacco: Never Smokeless Tobacco: Never Alcohol Use Standard Drinks/Week Comments Never 0 (1 standard drink = 0.6 oz pur e alcohol) Sex and Gender Information Value Date Recorded Sex Assigned at Not on file Legal Sex Male 12:41 AM EDT Gender Identity Not on file Sexual Orientation Not on file COVID-19 Exposure Response Date Recorded In the last 10 days, have yo u been in contact with someone who was confirmed or suspected to have Coronavirus/COVID-19? No / Unsure 09/11/2022 11:07 AM EST documented as of this encounter Plan of Treatment Not on file documented as of this encounter Procedures Procedure Name Priority Date/Time Associated Diagnosis Comments PATH CONSULT Routine 09/20/2022 11:50 AM EST documented in this encounter Results * Path Consult (09/20/2022 11:50 AM EST) Case Report PATHOLOGY CONSULT Case: [id number] Authorizing Provider: Thalia Fam MD Collected: 09/20/2022 1150 Ordering Location: [facility] Lab Received: 09/20/2022 1153 Pathologist: Vanessa Maldonado MD Specimen: Anus, Biopsy 09/26/2022 5:59 PM EST [facility] ([facility]) Final Diagnosis Mass at anal verge, biopsy ([id number], are 8 slides received from [facility]): Adenocarcinoma of colonic origin. 09/26/2022 5:59 PM EST [facility] ([facility]) at 1759 EST Clinical Information Anal mass 09/26/2022 5:59 PM EST [facility] ([facility]) Comment Provided immunostain s reveal carcinoma cells express CK20 and CDX-2, [...] to select further confirmatory tests when needed. 09/26/2022 5:59 PM EST [facility] ([facility]) Gross Description A. [place] [address] are eight (8) previously stained glass slides accessioned [id number]. The slides are accompanied by a copy of the contributing pathologists report. 09/26/2022 5:59 PM EST [facility] ([facility]) Tissue Anal structure / Unknown 09/20/2022 11:50 AM EST 09/20/2022 11:53 AM EST us Thalia Fam MD LAB PATHOLOGY ORDERABLES Fi nal Result [facility] ([facility]) [address] [place] [address] documented in this encounter Visit Diagnoses Not on filedocumented in this encounter Care Teams [employer] Home Economics Teacher Relationship Specialty Start Date End Date Tonio Marin DO [address] [place] [address] PCP - General 08/22/22 Eron Escobedo MD [address] [place] [address] Surgeon General Surgery 09/12/22 documented as of this encounter
--- OUTSIDE RECORDS SUMMARY | 2025-08-05 07:55 | XMS_ITS | Encounter Summary ---
Author Organization [facility] Address [address] [place] [address] Care Team Providers Care Stock Patch Sawyer Name Role Phone Tonio Marin DO Primary Care Provider [phone] Sera Forbes Unavailable Unavailable Nick Anderson MD Unavailable Unavail able Dania Key MD Unavailable [phone] Andree Rome APRN.BRIDGE GANG WORKER Unavailable [phone] Laurel Ríos RN Unavailable Unavailable Source Comments In the event this information is protected by the Federal Confidentiality of Alcohol and Drug AbusePatient Records regulations: The Federal rules restrict any use of the information to criminally investigate or prosecute any alcohol or drug abuse patient.[facility] Encounter Details Date Type Department Care Team (Late st Contact Info) Description 03/08/2025 Patient Msg Colorectal Surgery [address] [place] [address] Provider, Ignacio sigmoidoscopy 05/25/25 prep info Social History Tobacco Use Types Packs/Day Years Used Date Smoking Tobacco: Never Passive Smoke Exposure: Never Smokeless Tobacco: Never Alcohol Use Standard Drinks/Week Comments Yes 0 (1 standard drink = 0.6 oz pur e alcohol) rarely [facility] Utilities Answer Date Recorded In the [...] time in the past 12 m [facility], were you homeless or living in a intermediate (including now)? No 08/17/2024 Area Deprivation Index Answer Date Zander rded National Score (1-100), lower number is lower ri sk 53 02/21/2023 State Score (1-10), lower number is lower risk 3 02/21/2023 Data from: https://www.neighborhoodatlas.medicine.[facility].edu/. Last address used for calculation [address] [...] y [address] [place] [address] B12 09/29/2025 10:45 AM EST Infusion Center Hematology/Oncolog y [address] [place] [address] B12 10/08/2025 10:00 AM EST Office Visit Colorectal Surgery [address] [place], [place] [id number] [place] [address] [place] [address] F/up per Dr. Ospina 10/27/2025 10:45 AM EST Infusion Center Hematology/Oncolog y [address] [place] [address] B12 11/24/2025 10:45 AM EST Infusion Center Hematology/Oncolog y [address] [place] [address] B12 12/22/2025 10:30 AM EST Infusion Center Hematology/Oncolog y [address] [place] [address] 6 MONTH FOLLOW UP 12/22/2025 11:00 AM EST Visit (SP) Office Hematology/Oncolog y [address] [place] [address] Andree oRme, AZAEL.BRIDGE GANG WORKER [address] [place] [address] 6 MONTH FOLLOW UP 12/22/2025 11:30 AM EST Infusion Center Hematology/Oncolog y [address] [place] [address] 6 MONTH FOLLOW UP 07/12/2026 8:15 AM EDT Appointment Radiology Pet CT [address] [place] [address] CT CAP W IV 07/18/2026 2:40 PM EDT Visit (SP) Office Hematology/Oncolog y [address] [place] [address] Jamari Phillip MD [address] [place] [address] 1 YE[address] FOLLOW UP AFTER CT SCAN documented as of this encounter Visit Diagnoses Not on filedocumented in this encounter Care Teams Stock Patch Sawyer Relationship Specialty Start Date End Date Tonio Marin DO PCP - General Family Medicine 04/16/13 Sera Forbes LSW Wool Carder 09/26/22 Nick Anderson MD Physician Hematology/Oncology 10/01/22 04/23/25 Dania Key MD [facility] [place] [address] Physician Radiation Oncology 10/01/22 Andree Rome APRN.BRIDGE GANG WORKER [address] [place] [address] Nurse Practitioner Hematology/Oncology 10/01/22 Laurel Ríos, RN Specialty All Around Gear Machine Operator Colon and Rectal Surgery 02/18/23 02/19/28 documented as of this encounter
--- OUTSIDE RECORDS SUMMARY | 2025-08-05 07:55 | XMS_ITS | Encounter Summary ---
Author Organization [facility] Address [facility] [place] [address] Care Team Providers Care Bottler Helper Name Role Phone oTnio Marin DO Primary Care Provider [phone] Sera Forbes FAMILY RESOURCE SPECIALIST Unavailable Unavailable Nick Anderson MD Unavailable Unavail able Dania Key MD Unavailable [phone] Andree Rome APRN.CAGE UNLOADER Unavailable [phone] Denisha Duarte RN Unavailable [phone] Laurel Ríos RN Unavailable Unavailable Source Comments In the event this information is protected by the Federal Confidentiality of Alcohol and Drug AbusePatient Records regulations: The Federal rules restrict any use of the information to criminally investigate or prosecute any alcohol or drug abuse patient.[facility] Encounter Details Date Type Department Care Team (Late st Contact Info) Description 04/08/2023 GI Preprocedure Call [facility] Surgery [address] [place], [place] [id number] Tonio Marin DO [address] [place] [address] Social History Tobacco Use Types [...] risk 3 02/21/2023 Data from: https://www.neighborhoodatlas.medicine.[facility].edu/. Last address used for calculation [address] [...] Hematology/Oncolog y [address] [place] [address] B12 09/29/2025 10:45 AM EST Infusion Center Hematology/Oncolog y [address] [place] [address] B12 10/08/2025 10:00 AM EST Office Visit Colorectal Surgery [address] [place], [place] [address] [place] [address] [place], [place] [address] F/up per Dr. Ospina 10/27/2025 10:45 AM EST Infusion Center Hematology/Oncolog y [address] [place] [address] B12 11/24/2025 10:45 AM EST Infusion Center Hematology/Oncolog y [address] [place] [address] B12 12/22/2025 10:30 AM EST Infusion Center Hematology/Oncolog y [address] [place] [address] 6 MONTH FOLLOW UP 12/22/2025 11:00 AM EST Visit (SP) Office Hematology/Oncolog y [address] [place] [address] Andree Rome, AZAEL.CAGE UNLOADER [address] [place] [address] 6 MONTH FOLLOW UP 12/22/2025 11:30 AM EST Infusion Center Hematology/Oncolog y [address] [place] [address] 6 MONTH FOLLOW UP 07/12/2026 8:15 AM EDT Appointment Radiology Pet CT [address] [place] [address] CT CAP W IV 07/18/2026 2:40 PM EDT Visit (SP) Office Hematology/Oncolog y [address] [place] [address] Jamari Phillip MD [address] [place] [address] 1 YEAR FOLLOW UP AFTER CT SCAN documented as of this encounter Visit Diagnoses Not on filedocumented in this encounter Care Teams Bottler Helper Relationship Specialty Start Date End Date Tonio Marin DO PCP - General Family Medicine 04/16/13 Sera Forbes LSW Industrial Engineering Intern 09/26/22 Nick Anderson MD Physician Hematology/Oncology 10/01/22 04/23/25 Dania Key MD [facility] [place] [address] Physician Radiation Oncology 10/01/22 Andree Rome APRN.CAGE UNLOADER [facility] [place] [address] Nurse Practitioner Hematology/Oncology 10/01/22 Denisha Duarte, RN [address] [place] [address] [place] [address] Specialty Lighting Equipment Operator Hematology/Oncology 10/01/22 08/11/24 Laurel Ríos, RN Specialty Lighting Equipment Operator Colon and Rectal Surgery 02/18/23 02/19/28 documented as of this encounter
--- OUTSIDE RECORDS SUMMARY | 2025-08-05 07:55 | XMS_ITS | Encounter Summary ---
Author Organization [facility] Address [facility] [place] [address] Care Team Providers Care Splash Line Operator Name Role Phone Tonio Marin DO Primary Care Provider [phone] Sera Forbes SLITTER PROCESSED FILM Unavailable Unavailable Nick Anderson MD Unavailable Unavail able Dania Key MD Unavailable [phone] Andree Rome APRN.TREE FELLER Unavailable [phone] Denisha Duarte RN Unavailable [phone] Laurel Ríos RN Unavailable Unavailable Source Comments In the event this information is protected by the Federal Confidentiality of Alcohol and Drug AbusePatient Records regulations: The Federal rules restrict any use of the information to criminally investigate or prosecute any alcohol or drug abuse patient.[facility] Encounter Details Date Type Department Care Team (Late st Contact Info) Description 07/20/2024 GI Preprocedure Call [facility] Surgery [address] [place], [place] [phone] Tonio Marin DO [address] [place] [address] Social History Tobacco Use Types [...] is lower risk 3 02/21/2023 Data from: https://www.neighborhoodatlas.medicine.[facility].edu/. Last address used for calculation [address] [...] Center Hematology/Oncolog y [address] [place] [address] B12 09/29/2025 10:45 AM EST Infusion Center Hematology/Oncolog y [address] [place] [address] B12 10/08/2025 10:00 AM EST Office Visit Colorectal Surgery [address] [place] [address] [place] [address] [place], [place] [address] F/up per Dr. Ospina 10/27/2025 10:45 AM EST Infusion Center Hematology/Oncolog y [address] [place] [address] B12 11/24/2025 10:45 AM EST Infusion Center Hematology/Oncolog y [address] [place] [address] B12 12/22/2025 10:30 AM EST Infusion Center Hematology/Oncolog y [address] [place] [address] 6 MONTH FOLLOW UP 12/22/2025 11:00 AM EST Visit (SP) Office Hematology/Oncolog y [address] [place] [address] Andree Rome, BAKESHOP CLEANER.TREE FELLER [address] [place] [address] 6 MONTH FOLLOW UP 12/22/2025 11:30 AM EST Infusion Center Hematology/Oncolog y [address] [place] [address] 6 MONTH FOLLOW UP 07/12/2026 8:15 AM EDT Appointment Radiology Pet CT [address] [place] [address] CT CAP W IV 07/18/2026 2:40 PM EDT Visit (SP) Office Hematology/Oncolog y [address] [place] [address] Jamari Phillip MD [address] [place] [address] 1 YEAR FOLLOW UP AFTER CT SCAN documented as of this encounter Visit Diagnoses Not on filedocumented in this encounter Care Teams Splash Line Operator Relationship Specialty Start Date End Date Tonio Marin DO PCP - General Family Medicine 04/16/13 Sera Forbes LSW Color Making Supervisor 09/26/22 Nick Anderson MD Physician Hematology/Oncology 10/01/22 04/23/25 Dania Key MD [address] [place] [address] Physician Radiation Oncology 10/01/22 Andree Rome APRN.TREE FELLER [address] [place] [address] Nurse Practitioner Hematology/Oncology 10/01/22 Denisha Duarte, ALEXUS [address] [place] [address] Specialty Trend Investigator Hematology/Oncology 10/01/22 08/11/24 Laurel Ríos, RN Specialty Trend Investigator Colon and Rectal Surgery 02/18/23 02/19/28 documented as of this encounter
--- OUTSIDE RECORDS SUMMARY | 2025-08-05 07:55 | XMS_ITS | Encounter Summary ---
Author Organization [facility] Address [address] [place] [address] Care Team Providers Care Lpn Medical Assistant Name Role Phone Tonio Marin DO Primary Care Provider [phone] Sera Forbes Unavailable Unavailable Nick Anderson MD Unavailable Unavail able Dania eKy MD Unavailable [phone] Andree Rome APRN.VIDEO PRODUCTION ASSISTANT Unavailable [phone] Denisha Duarte RN Unavailable [phone] Laurel Ríos RN Unavailable Unavailable Source Comments In the event this information is protected by the Federal Confidentiality of Alcohol and Drug AbusePatient Records regulations: The Federal rules restrict any use of the information to criminally investigate or prosecute any alcohol or drug abuse patient.[facility] Encounter Details Date Type Department Care Team (Late st Contact Info) Description 02/24/[address] [facility] Surgery [address] [place] [address] [place] [address] [place], [place] [phone] Social History Tobacco Use Types Packs/Day Years [...] is lower risk 3 02/21/2023 Data from: https://www.neighborhoodatlas.medicine.[facility].edu/. Last address used for calculation [address] [...] Hematology/Oncolog y [address] [place] [address] B12 09/29/2025 10:45 AM EST Infusion Center Hematology/Oncolog y [address] [place] [address] B12 10/08/2025 10:00 AM EST Office Visit Colorectal Surgery [address] [place], [place] [address] [place] [address] [place], [place] [address] F/up per Dr. Ospina 10/27/2025 10:45 AM EST Infusion Center Hematology/Oncolog y [address] [place] [address] B12 11/24/2025 10:45 AM EST Infusion Center Hematology/Oncolog y [address] [place] [address] B12 12/22/2025 10:30 AM EST Infusion Center Hematology/Oncolog y [address] [place] [address] 6 MONTH FOLLOW UP 12/22/2025 11:00 AM EST Visit (SP) Office Hematology/Oncolog y [address] [place] [address] Andree Rome APRN.VIDEO PRODUCTION ASSISTANT [address] [place] [address] 6 MONTH FOLLOW UP 12/22/2025 11:30 AM EST Infusion Center Hematology/Oncolog y [address] [place] [address] 6 MONTH FOLLOW UP 07/12/2026 8:15 AM EDT Appointment Radiology Pet CT [address] [place] [address] CT CAP W IV 07/18/2026 2:40 PM EDT Visit (SP) Office Hematology/Oncolog y [address] [place] [address] Jamari Phillip MD [address] [place] [address] 1 YEAR FOLLOW UP AFTER CT SCAN documented as of this encounter Visit Diagnoses Not on filedocumented in this encounter Care Teams Lpn Medical Assistant Relationship Specialty Start Date End Date Tonio Marin DO PCP - General Family Medicine 04/16/13 Sera Forbes LSW Button Attaching Machine Operator 09/26/22 Nick Anderson MD Physician Hematology/Oncology 10/01/22 04/23/25 Dania Key MD [address] [place] [address] Physician Radiation Oncology 10/01/22 Andree Rome APRN.VIDEO PRODUCTION ASSISTANT [address] [place] [address] Nurse Practitioner Hematology/Oncology 10/01/22 Denisha Duarte, RN [address] [place] [address] [place] [address] Specialty Buffing Wheel Operator Hematology/Oncology 10/01/22 08/11/24 Laurel Ríos RN Specialty Buffing Wheel Operator Colon and Rectal Surgery 02/18/23 02/19/28 documented as of this encounter
--- OUTSIDE RECORDS SUMMARY | 2025-08-05 07:55 | XMS_ITS | Encounter Summary ---
Author Organization [facility] Address [address] [place] [address] Care Team Providers Care Power Shovel Operator Helper Name Role Phone Tomas Tonio Dailey DO Primary Care Provider [phone] Sera Forbes Unavailable Unavailable Nick Anderson MD Unavailable Unavail able Dania Key MD Unavailable [phone] Andree Rome APRN.TEACHER ASSISTANT Unavailable [phone] Denisha Duarte RN Unavailable [phone] Laurel Ríos RN Unavailable Unavailable Source Comments In the event this information is protected by the Federal Confidentiality of Alcohol and Drug AbusePatient Records regulations: The Federal rules restrict any use of the information to criminally investigate or prosecute any alcohol or drug abuse patient.[facility] Encounter Details Date Type Department Care Team (Late st Contact Info) Description 03/20/2023 Patient Msg [address] [place] [address] Santiago Lema, [place] [address] [place] [address] Genetic Test Result Social History Tobacco Use Types Packs/Day Years [...] risk 3 02/21/2023 Data from: https://www.neighborhoodatlas.medicine.[facility].edu/. Last address used for calculation [address] [...] y [address] [place] [address] B12 09/29/2025 10:45 AM EST Infusion Center Hematology/Oncolog y [address] [place] [address] B12 10/08/2025 10:00 AM EST Office Visit Colorectal Surgery [address] [place], [place] [address] [place] [address] [place] [address] F/up per Dr. Ospina 10/27/2025 10:45 AM EST Infusion Center Hematology/Oncolog y [address] [place] [address] B12 11/24/2025 10:45 AM EST Infusion Center Hematology/Oncolog y [address] [place] [address] B12 12/22/2025 10:30 AM EST Infusion Center Hematology/Oncolog y [address] [place] [address] 6 MONTH FOLLOW UP 12/22/2025 11:00 AM EST Visit (SP) Office Hematology/Oncolog y [address] [place] [address] Andree Rome APRN.TEACHER ASSISTANT [address] [place] [address] 6 MONTH FOLLOW UP 12/22/2025 11:30 AM EST Infusion Center Hematology/Oncolog y [address] [place] [address] 6 MONTH FOLLOW UP 07/12/2026 8:15 AM EDT Appointment Radiology Pet CT [address] [place] [address] CT CAP W IV 07/18/2026 2:40 PM EDT Visit (SP) Office Hematology/Oncolog y [address] [place] [address] Jamari Phillip MD [address] [place] [address] 1 YEAR FOLLOW UP AFTER CT SCAN documented as of this encounter Visit Diagnoses Not on filedocumented in this encounter Care Teams Power Shovel Operator Helper Relationship Specialty Start Date End Date Tonio Marin DO PCP - General Family Medicine 04/16/13 Sera Forbes LSW Grounds/Maintenance Specialist 09/26/22 Nick Anderson MD Physician Hematology/Oncology 10/01/22 04/23/25 Dania Key MD [address] [place] [address] Physician Radiation Oncology 10/01/22 Andree Rome APRN.TEACHER ASSISTANT [address] [place] [address] Nurse Practitioner Hematology/Oncology 10/01/22 Denisha Duarte, RN [address] [place] [address] [place] [address] Specialty Solar Process Engineer Hematology/Oncology 10/01/22 08/11/24 Laurel Ríos RN Specialty Solar Process Engineer Colon and Rectal Surgery 02/18/23 02/19/28 documented as of this encounter
--- OUTSIDE RECORDS SUMMARY | 2025-08-05 07:55 | XMS_ITS | Encounter Summary ---
Author Organization [facility] Address [facility] [place] [address] Care Team Providers Care Borderer Name Role Phone Tonio Marin DO Primary Care Provider Sera Forbes POST FORM REMOVER Unavailable Unavailable Nick Anderson MD Unavailable Unavail able Dania Key MD Unavailable [phone] Andree Rome APRN.TAXICAB DRIVER Unavailable [phone] Denisha Duarte RN Unavailable [phone] Laurel Ríos RN Unavailable Unavailable Source Comments In the event this information is protected by the Federal Confidentiality of Alcohol and Drug AbusePatient Records regulations: The Federal rules restrict any use of the information to criminally investigate or prosecute any alcohol or drug abuse patient.[facility] Encounter Details Date Type Department Care Team (Late st Contact Info) Description 07/08/2023 GI Preprocedure Call [facility] Surgery [address] [place], [place] [phone] Tonio Mrain DO [address] [place] [address] Social History Tobacco Use Types [...] is lower risk 3 02/21/2023 Data from: https://www.neighborhoodatlas.medicine.[facility].edu/. Last address used for calculation [address] [...] y [address] [place] [address] B12 09/29/2025 10:45 AM EST Infusion Center Hematology/Oncolog y [address] [place] [address] B12 10/08/2025 10:00 AM EST Office Visit Colorectal Surgery [address] [place], [place] [address] [place] [address] [place], [place] [address] F/up per Dr. Ospina 10/27/2025 10:45 AM EST Infusion Center Hematology/Oncolog y [address] [place] [address] B12 11/24/2025 10:45 AM EST Infusion Center Hematology/Oncolog y [address] [place] [address] B12 12/22/2025 10:30 AM EST Infusion Center Hematology/Oncolog y [address] [place] [address] 6 MONTH FOLLOW UP 12/22/2025 11:00 AM EST Visit (SP) Office Hematology/Oncolog y [address] [place] [address] Andree Rome, AZAEL.TAXICAB DRIVER [address] [place] [address] 6 MONTH FOLLOW UP 12/22/2025 11:30 AM EST Infusion Center Hematology/Oncolog y [address] [place] [address] 6 MONTH FOLLOW UP 07/12/2026 8:15 AM EDT Appointment Radiology Pet CT [address] [place] [address] CT CAP W IV 07/18/2026 2:40 PM EDT Visit (SP) Office Hematology/Oncolog y [address] [place] [address] Jamari Phillip MD [address] [place] [address] 1 YEAR FOLLOW UP AFTER CT SCAN documented as of this encounter Visit Diagnoses Not on filedocumented in this encounter Care Teams Borderer Relationship Specialty Start Date End Date Tonio Marin DO PCP - General Family Medicine 04/16/13 Sera Forbes LSW Globe Cleaner 09/26/22 Nick Anderson MD Physician Hematology/Oncology 10/01/22 04/23/25 Dania Key MD [facility] [place] [place] [place] [address] Physician Radiation Oncology 10/01/22 Andree Rome APRN.TAXICAB DRIVER [facility] [place] [address] Nurse Practitioner Hematology/Oncology 10/01/22 Denisha Duarte, RN [address] [place] [address] [place] [address] Specialty Dehydrogenation Operator Head Hematology/Oncology 10/01/22 08/11/24 Laurel Ríos, RN Specialty Dehydrogenation Operator Head Colon and Rectal Surgery 02/18/23 02/19/28 documented as of this encounter
--- OUTSIDE RECORDS SUMMARY | 2025-08-05 07:59 | XMS_ITS | CCD ---
Author Organization [facility] Inform ion Partnership [facility] Care Team Providers Care Playground Monitor Name Role Phone SONAM ZAMBRANO Consulting Unavailable PAWANANDER, LINK Attending Unavailable PAWANANDER, LINK Admitting Unavailable TOMAS, DR LORENZO Dailey Primary Care Unavailable TOMAS, DR LORENZO Dailey Primary Care Unavailable DINORAH, DR SHANTEL Casillas Consulting Unavailable HIGHLANDER, LINK Attending Unavailable HIGHLANDER, LINK Admitting Unavailable HIGHLANDER, LIKN Consulting Unavailable TON, JOHANA Consulting Unavailable ERICA, CESAR Consulting Unavailable LERENA, LAKSHMI Consulting Unavailable PAWANANDER, LINK Attending Unavailable DAMASO, DR DEBORAH Jack Consulting Unavailable HIGHLANDER, LINK Admitting Unavailable HIGHLANDER, LINK Consulting Unavailable TMOAS, DR LORENZO Dailey Primary Care Unavailable HIGHLANDER, LINK Attending Unavailable HIGHLANDER, LINK Consulting Unavailable ISACC, LINK Admitting Unavailable [...] Anderson Attending Provider Minerva Anderson MD Unavailable Dania Key MD Unavailable [phone] Wild 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.GROCERY STORE BAGGER, Andree Unavailable [phone] Gerald VAUGHAN, Denisha Unavailable Michoacano VAUGHAN, Chelsie Dahl Unavailable Unavailable Valencia Webster Unavailable Tomas, Lorenzo Dailey Primary Care Provider JM Webster Attending Provider DEBORAH NORMAN Referring Unavailable LORENZO MARIN Primary Care Unavailable Tomas HERNANDEZ, Lorenzo Dailey Primary Care Provider Gerald VAUGHAN, Denisha Unavailable [phone] Chelsie Kolb RN Unavailable Unavailable Lorenzo MARIN Primary Care Physician [phone] Tomas, Lorenzo Primary Care Provider JM Webster Attending Provider [...] Abhinav Veronica Attending Unavailable Tomas , Lorenzo Primary Care Provider Yuridia Houser Attending Unavailable Gerald VAUGHAN, Denisha Unavailable MINERVA ANDERSON Admitting Unavailable MINERVA ANDERSON Attending Unavailable GOPALAKSARAVANANA, K V Admitting Unavailable GOPALAKSARAVANANA, K V Attending Unavailable Tomas HERNANDEZ, Lorenzo Primary Care Provider Tomas ARRINGTON Lorenzo Primary Care Provider MINERVA ANDERSON Attending Unavailable MINERVA ANDERSON Admitting Unavailable DANIEL WERNER Admitting Unavailable DANIEL WERNER Attending Unavailable Micky Cueto Attending Unavailable LORENZO MARIN Primary Care Unavailable VALERIE ROBERTS Referring Unavailable TOMAS, LORENZO Dailey Primary Care Unavailable SHANNON GRAHAM Referring Unavailable TOMAS, LORENZO Dailey Primary Care Unavailable NEGAR PINEDO Attending Unavailable NEGAR PINEDO Referring Unavailable TOMAS, LORENZO Primary Care Unavailable Corey SINGLETON Attending Unavailable NONE, XXXX Referring Unavailable LUZ Peña Attending Unavailable LUZ Peña Admitting Unavailable Corrina, Yuridia Walter Attending Unavailable NASREENA, K V Attending Unavailable NASREENA, K V Admitting Unavailable NONE, XXXX Referring [...] ABDULLAHI, CHELSIE Scruggs Attending Unavailable FERNANDO, CHELSIE Scruggs Referring Unavailable FERNANDO, CHELSIE Scruggs Attending Unavailable FERNANDO, CHELSIE Scruggs Referring Unavailable BLACKSJAX, SHAWN Engle Attending Unavailable FERNANDO, CHELSIE Scruggs Referring Unavailable LAINA MAYORGA Attending Unavailable FERNANDO, CHELSIE Scruggs Referring Unavailable CARRIE LEIGH Attending Unavailable FERNANDO, CHELSIE Scruggs Referring Unavailable BLACKSTON, SHAWN Engle Attending Unavailable FERNANDO, CHELSIE Scruggs Referring Unavailable FERNANDO, CHELSIE Scruggs Attending Unavailable FERNANDO, CHELSIE Scruggs Attending Unavailable FERNANDO, CHELSIE Scruggs Referring Unavailable XIOMARA GRECO Attending Unavailable ABDULLAHI, CHELSIE Scruggs Referring Unavailable MINERVA ANDERSON Referring Unavailable TOMAS, LORENZO S Primary Care Unavailable CARMELINA FUGN Attending Unavailable DEBORAH NORMAN Referring Unavailable TOMAS, LORENZO S Primary Care Unavailable MINERVA ANDERSON Referring Unavailable TOMAS, LORENZO S Primary Care Unavailable MEVRAT SOLORZANO Admitting Unavailable MERVAT SOLORZANO Attending Unavailable TOMAS, LORENZO S Primary Care Unavailable PROVIDER, UNKNOWN Admitting Unavailable PROVIDER, UNKNOWN Attending Unavailable TOMAS, LORENZO S Primary Care Unavailable CARMELINA FUNG Attending Unavailable DEBORAH NORMAN Referring Unavailable TOMAS, LORENZO S Primary Care Unavailable MINERVA ANDERSON Referring Unavailable TOMAS, LORENZO S Primary Care Unavailable Yuridia Houser Attending Unavailable Chandrika Camacho Attending Unavailable Coery SINGLETON Attending Unavailable Olivia Varghese Admitting Unavailable Orzeobdulio, Olivia Montes Attending Unavailable Orpablo, Olivia X Referring Unavailable TOMAS, LORENZO S Primary Care Unavailable TOMAS, LORENZO S Primary Care Unavailable DEBORAH NORMAN Referring Unavailable CELESTE ANDREWS Attending Unavailable TOMAS, LORENZO S Primary Care Unavailable KARI DIAZ Referring Unavailable TOMAS, LORENZO S Primary Care Unavailable MINERVA ANDERSON Referring Unavailabl e TOMAS, LORENZO S Primary Care Unavailable MINERVA ANDERSON Referring Unavailabl e TOMAS, LORENZO S Primary Care Unavailable MINERVA ANDERSON Referring Unavailabl e MINERVA ANDERSON Attending Unavailabl e TOMAS, LORENZO S Primary Care Unavailable TARI ENCARNACION Referring Unavailable TOMAS, LORENZO S Primary Care Unavailable MINERVA ANDERSON Attending Unavailabl e MINERVA ANDERSON Referring Unavailabl e TOMAS, LORENZO S Primary Care Unavailable MINERVA ANDERSON Referring Unavailabl e TOMAS, LORENZO S Primary Care Unavailable CELESTE ANDREWS Referring Unavailable CELESTE ANDREWS Attending Unavailable TOMAS, LORENZO S Primary Care Unavailable CELESTE ANDREWS Referring Unavailable TOMAS, LORENZO S Primary Care Unavailable TOMAS, LORENZO S Primary Care Unavailable MINERVA ANDERSON Referring Unavailabl e TOMAS, LORENZO S Primary Care Unavailable TARI ENCARNACION Referring Unavailable TOMAS, LORENZO S Primary Care Unavailable CELESTE ANDREWS Referring Unavailable TOMAS, LORENZO S Primary Care Unavailable MINERVA ANDERSON Attending Unavailabl e MINERVA ANDERSON Referring Unavailabl e TOMAS, LORENZO S Primary Care Unavailable MINERVA ANDERSON Referring Unavailabl e TOMAS, LORENZO S Primary Care Unavailable MINERVA ANDERSON Referring Unavailabl e TOMAS, LORENZO S Primary Care Unavailable TOMAS, LORENZO S Primary Care Unavailable DEBORAH NORMAN Referring Unavailable DAYANARA SULLIVAN Attending Unavailable TOMAS, LORENZO S Primary Care Unavailable MINERVA ANDERSON Referring Unavailabl e KARI DIAZ Attending Unavailable TOMAS, LORENZO S Primary Care Unavailable MINERVA ANDERSON Referring Unavailabl e TOMAS, LORENZO S Primary Care Unavailable MINERVA ANDERSON Referring Unavailabl e TOMAS, LORENZO S Primary Care Unavailable DEBORAH NORMAN Referring Unavailable DEBORAH NORMAN Attending Unavailable TOMAS, LORENZO S Primary Care Unavailable MINERVA ANDERSON Referring Unavailabl e MINERVA ANDERSON Attending Unavailabl e TOMAS, LORENZO S Primary Care Unavailable TARI ENCARNACION Attending Unavailable MINERVA ANDERSON Referring Unavailabl e LUZ Peña Admitting Unavailable LUZ Peña Attending Unavailable LUZ Peña Referring Unavailable MD Jason Galvin Consulting Unavailable Jason Galvin Consulting Unavailable Jason Galvin Consulting Unavailable DANIEL WERNER Admitting Unavailable DANIEL WERNER Attending Unavailable Yuridia Houser Attending Unavailable LUZ Peña Attending Unavailable NONE, XXXX Referring Unavailable LUZ Peña Admitting Unavailable Allergies Allergy Classification Reported Allergen(s) Allergy Type Date of Onset Reaction(s) Facility (6 sources) Penicillin; 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: [penicillin] Drug Allergy [facility] Repository Medications Current Medications Medication Drug Class(es) Dates Sig (Normalized) Sig (Original) acetaminophen 325 mg / HYDROcodone bitartrate 5 mg oral tablet (20 sources) Opioid Agonist Start: 04-02-2023 [place] 325 mg-5 mg oral tablet 1 tab(s), Oral, q6hr as needed for pain, 10 tab(s), Refill(s) 0, [facility] #[id number], 188, cm, 04/02/23 10:50:00 EDT, Height/Length Dosing, 100, kg, 04/02/23 10:50:00 EDT, Weight Dosing Start Date: 04/02/23 Status: Ordered Start: 03-18-2023 [place] 325 mg-5 mg oral tablet 1 tab(s), Oral, q6hr as needed for pain, 10 tab(s), Refill(s) 0, [facility] #[id number], 188, cm, 03/18/23 10:50:00 EDT, Height/Length Dosing, [...] scalp once a day/30 days 60 g 07/14/2024 Active cyclobenzaprine hydrochloride 5 mg oral [...] Daily, # 90 tab(s), Refills(s) 3, Pharmacy: [facility]/pharmacy #[id number], 188, cm, 06/18/25 12:31:00 EDT, Height/Length Dosing, 103.1, kg, 06/18/25 12:31:00 EDT, Weight Dosing Start Date: 06/25/25 Status: Ordered Quantity: 90.0 Unit: tab(s) Repeat number: 4 Start: 12-19-2023 End: 05-16-2025 take 1 tablet by mouth once daily finasteride 5 mg Tab 5 mg = 1 tab(s), Oral, Daily, X 90 day(s), # 90 tab(s), Refills(s) 3, Pharmacy: [facility], 188, cm, 02/14/24 9:57:00 EDT, Height/Length Dosing, 113.5, kg, 02/14/24 9:57:00 EDT, Weight Dosing Start Date: 05/21/24 Stop Date: 05/16/25 Status: Ordered Quantity: 90.0 Unit: tab(s) Repeat number: 4 Start: 10-24-2022 End: 10-19-2023 take 1 tablet by mouth once daily finasteride 5 mg Tab 5 mg = 1 tab(s), Oral, Daily, # 90 tab(s), Refills(s) 0, Pharmacy: [facility], 188, cm, 01/28/24 7:59:00 EDT, [...] liqd Take by mouth once daily. Active glucosamine/yaa dr ana Abraham sod (GLUCOSAMINE-CHONDROITIN) 1,500-1,200 [...] in water before taking, [facility] JOYCELYN TATUME, 188, cm, 01/02/22 10:27:00 EDT, Height/Length Dosing, [...] Start: 05-07-2023 take 2 tablets by mo [facility] every eight hours as needed for [...] 08/03/2024 Active take 1 tablet by blake every four hours as needed for pain [...] Date: 09/10/24 Status: Ordered polyethylene glycol 3350 03196 mg powder for oral solution (7 sources) Osmotic Laxative Start: 01-02-2022 MiraLax oral powder for reconstitution 17 gram, Oral, Daily, 527 gram, Refill(s) 0, dissolve in water before taking, [facility], cm, 01/02/22 10:27:00 EDT, Height/Length Dosing, 112, kg, 01/02/22 10:27:00 EDT, Weight Dosing Start Date: 01/02/22 Status: Ordered potassium citrate 10 meq extended release oral tablet (13 sources) Start: 09-28-2021 End: 09-20-2022 take 1 tablet by mouth twice daily potassium CITRATE 10 mEq ER Tab 10 mEq, 1 tab(s), Oral, BID, 180 tab(s), Refill(s) 3, [facility], 188, cm, 09/28/21 13:33:00 EST, Height/Length Dosing, 112.4, kg, 09/28/21 13:33:00 EST, Weight Dosing Start Date: 09/28/21 Status: Ordered Start: 09-28-2021 take 1 tablet by [facility] twice daily potassium CITRATE 10 mEq ER Tab 10 mEq, 1 tab(s), Oral, BID, 180 tab(s), Refill(s) 3, [facility], 188, cm, 09/28/21 13:33:00 EST, [...] days., # 45 tab(s), Refills(s) 0, [id number], 188, cm, 04/02/23 10:50:00 EDT, Height/Length Dosing, [...] days., # 45 tab(s), Refills(s) 0, Pharmacy: [facility]/pharmacy #[id number], 187.6, cm, 08/20/22 7:01:00 EDT, Height/Length Dosing, 112.5,... Start Date: 09/28/22 Status: Ordered Start: 09-03-2022 predniSONE (DE LTASONE) 10 mg tablet 5 mg. 0 09/03/2022 Active Start: 09-03-2022 predniSONE (DE LTASONE) 10 mg tablet Start: 08-14-2022 take 1 tablet by blake once daily predniSONE 5 mg Tab take [...] days, # 42 tab(s), Refills(s) 1, Pharmacy: [facility], 189, cm, 05/31/22 10:57:00 EDT, [...] # 30 tab(s), Refills(s) 2, [facility]acy: [facility], 188, cm, 01/02/22 10:27:00 EDT, Height/Length [...] activity, # 30 tab(s), Refills(s) 3, [facility]: [id number], 188, cm, 02/14/24 9:57:00 EDT, Height/Length Dosing, 113.5, kg, 02/14/24 9:57:00 EDT, Weight Dosing Start Date: 02/14/24 Status: Ordered Quantity: 30.0 Unit: tab(s) Repeat number: 4 Indications: Male erectile dysfunction, unspecified; Start: 01-02-2022 End: 09-20-2022 sildenafil 20 mg oral tablet See Instructions, Take 2 to 5 tablets po prior to sexual activity, # 30 tab(s), Refills(s) 2, Pharmacy: [id number], 188, cm, 01/02/22 10:27:00 [...] hrs., # 15 tab(s), Refills(s) 6, [facility]acy: [facility] #[id number], 188, cm, 10/24/22 10:33:00 EST, Height/Length Dosing, 112, kg, 10/24/22 1... 30 tablet 3 01/16/2024 Active tamsulosin hydrochloride 0.4 mg oral capsule (20 sources) alpha-Adrenergic Taina Start: 06-28-20 take 1 capsule by mouth once daily tamsulosin (Flomax) 0.4 MG 24 hr capsule Take 1 capsule every day by oral route. 06/28/2022 Active Start: 09-18-2021 take 1 capsule by mo [facility] twice daily Flomax 0.4 mg Cap 0.4 mg = 1 cap(s), Oral, BID, # 180 cap(s), Refills(s) 3, Pharmacy: [facility], 188, cm, 09/10/24 8:15:00 EST, [...] day(s), # 90 tab(s), Refills(s) 3, Pharmacy: [facility], 188, cm, 09/10/24 8:15:00 EST, [...] BID, # 60 tab(s), Refills(s) 11, Pharmacy: [address], 187, cm, 06/20/21 9:10:00 EDT, Height/Length [...] source) gamma-Aminobutyr ic Acid-ergic Agonist Start: End: 5 Baclofen 10 mg tablet Discontinued 10 MG [...] 2 tab(s), Refills(s) 0, Pharmacy: [id number], 188, cm, 05/07/23 13:45:00 EDT, Height/Length Dosing, [...] on above: Take 1 capsule by mo [facility] daily at bedtime for 30 days. hydrocortisone [...] day(s), # 28 supp, Refills(s) 0, Pharmacy: [facility] #[id number], 189, cm, 08/06/22 13:04:00 EDT, Height/Length Dosing, [...] (13 sources) Folate Analog Metabolic Inhibitor Start: End: 2 take 1 tablet by mouth [...] day(s), # 180 tab(s), Refills(s) 3, Pharmacy: [facility]/pharmacy #[id number], 188, cm, 07/12/25 8:12:00 EDT, Height/Length [...] Daily, # 90 tab(s), Refills(s) 3, Pharmacy: [facility], 187, cm, 03/09/21 13:13:00 [...] current use of drug therapy; 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: [Other extermination supervisor (current) drug therapy] Episodic Other aftercare (14 [...] 03-31-2025 08-19-2022 Episodic Other aftercare (2 sources) [facility] (current) use of anticoagulants; 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: [INTERMEDIATE CURRNT USE ANTICOAGULANTS] Onset: 04-05-2021 Episodic Other aftercare (1 source) Other extermination supervisor (current) drug therapy; 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: [OTH SUPERVISOR PASTE [employer]ANT CURRENT DRUG THERAPY] Onset: 04-05-2021 Episodic Other [...] Test Name Value Interpretation Reference Range Facility Heart and Vascular Office/Cl inic Noteon 08-02-2025 Heart and Vascular Office/Clinic Note [facility] Office/Clinic Note Chief Complaint 6 month follow up, clearance History of Present Illness Patient is a 74-year-old male with history of nonischemic cardiomyopathy, BPH, RA, history of rectal cancer. Echo 12/2022 showed moderately reduced EF of 40-45%, normal LV and RV and no significant valvular disease. Patient comes in for 6-month follow-up today and surgical clearance. Reviewed prior echoes, heart cath, EKGs. At last visit, I saw patient which time he was continue with current medications. Patient reports that he has been doing well from a heart standpoint. However, patient does complain of increased fatigue. He states that he feels like he is getting worn out or tired quicker than he used to. Patient denies any issues with shortness of breath or chest discomfort, but does report that he just gets tired quicker. He states that at the beginning of 07/2024 he had a perforated bowel during a scope and had to have about 1 foot [...] to 50-55% in 2022. However echo in 01/2025 showed EF of 40-45%. Pt would be willing to give a new medication a try to see if it helped with fatigue. Pt did have a pre-surgical EKG which showed new changes compared to prior EKG. There is now an incomplete RBBB and left axis deviation that were no on previous EKG. Patient denies chest pain, shortness of breath, heart palpitations, dizziness/lightheadedne ss, and swelling in lower legs. REVIEWED PRIOR NOTE FROM 03/10/2025: Patient comes in for 6-month follow-up today. [...] swelling in lower legs. Review of Systems PHQ Score Initial Depression Screen Score: 0 SCORE ROS - Provider Constitutional: no fever, no chills, no sweats, no weakness Respiratory: no shortness of breath, no cough Cardiovascular: no chest pain Neuro: no dizziness. no loss of consciousness Physical Exam Vitals & Measurements HR: 87(Peripheral) RR: 20 BP: 114/78 SpO2: 97% HT: 74 in HT: 188 cm WT: 107.6 kg WT: 237.217 lb BMI: 30.44 General: alert, no acute distress Cardiovascular: regular [...] dated 07/17/2019 no appreciable change is noted. [facility] with Dr. Crowley on (more content not included)... Normal [facility] Comment on above: Result Comment: Elec tronically Signed By: Casey ESCOBAR, Pato Abraham\.grace\Date and Time Signed: 08/02/25 22:54 EDT CNPNon 07-20-2025 CNPN Normal [facility] CNNURSEon 07-19-2025 CNNURSE Normal [facility] CNOVSPon 07-19-2025 CNOVSP Normal [facility] Ferritin SerPl-mCncon 2024 Ferritin [Mass/Vol] 57.0 ng/mL Normal 30.3-565.[address] [facility] Comment on above: Order Comment: Speci men Type: BLOOD SPECIMENOrdering Facility: [facility] Address: [address] [place] [address] Performed By: #### 2 284-8, 16966-8, 2275-4, 2132-06 ####[facility] LABCLIA [id number] [place] [id number] [place] Folate SerPl-ncon 07-19-20 Folate [Mass/Vol] 11.5 ng/mL Normal >4.7 [facility] Comment on above: Order Comment: Speci men Type: BLOOD SPECIMENOrdering Facility: [facility] Address: [address] [place] [address] Performed By: #### 2 284-8, 04467-5, 4, 2132-06 ####[facility] LABCLIA [id number] [place] [address] [place] Iron and Iron binding capaci panel 07-19-2025 Iron [Mass/Vol] 55 ug/dL Normal 41-186 [facility] Comment on above: Order Comment: Speci men Type: BLOOD SPECIMENOrdering Facility: [facility] Address: [address] [place] [address] Performed By: #### 2 284-8, 25839-1, 2275-4, 2132-06 ####[facility] LABCLIA [id number] [place] [address] [place] Iron binding capacity [Mass/Vol] 263 ug/dL Normal 232-386 [facility] Comment on above: Order Comment: Speci men Type: BLOOD SPECIMENOrdering Facility: [facility] Address: [address] [place] [address] Performed By: #### 2 284-8, 72544-1, 2275-4, 2132-06 ####[facility] LABCLIA [id number] [place] [address] [place] Iron/TIBC [Molar ratio] 20.9 % Normal 15.0-57.0 [facility] Comment on above: Order Comment: Speci men Type: BLOOD SPECIMENOrdering Facility: [facility] Address: [address] [place] [address] Performed By: #### 2 284-8, 58324-1, 6-4, 9 ####[facility] LABCLIA [id number] [address] [place] Vit B[facility] Cobalamin (Vitamin B12) [Mass/Vol] 193 pg/mL Low 232-1245 [facility] Comment on above: Order Comment: Speci men Type: BLOOD SPECIMENOrdering Facility: [facility] Address: [address] [place] [address] Performed By: #### 2 284-8, 25691-8, 2276-01, 2132-06 ####[facility] LABCLIA [id number] [place] [address] [place] CBC W Auto Differential pane l (Bld)on 07-15-2025 Basophils (Bld) [#/Vol] 0.05 10*3/uL Normal <0.11 [facility] Comment on above: Order Comment: Speci men Type: BLOOD SPECIMENOrdering Facility: [facility] Address: [address] [place] [address] Performed By: #### 5 7021-8 ####[facility] LABCLIA [id number] [place] [address] Basophils/100 WBC (Bld) 0.7 % Normal [facility] Comment on above: Order Comment: Speci men Type: BLOOD SPECIMENOrdering Facility: [facility] Address: [address] [place] [address] Performed By: #### 5 7021-8 ####[facility] LABCLIA [id number] [place] [address] Differential cell count method Nom (Bld) Auto Normal [facility] Comment on above: Order Comment: Speci men Type: BLOOD SPECIMENOrdering Facility: [facility] Address: [address] [place] [address] Performed By: #### 5 7021-8 ####[facility] LABCLIA [id number] [place] [address] Eosinophils (Bld) [#/Vol] 0.26 10*3/uL Normal <0.46 [facility] Comment on above: Order Comment: Speci men Type: BLOOD SPECIMENOrdering Facility: [facility] Address: [address] [place] [address] Performed By: #### 5 7021-8 ####[facility] LABCLIA [id number] [place] [address] Eosinophils/100 WBC (Bld) 3.4 % Normal [facility] Comment on above: Order Comment: Speci men Type: BLOOD SPECIMENOrdering Facility: [facility] Address: [address] [place] [address] Performed By: #### 5 7021-8 ####[facility] LABCLIA [id number] [place] [address] Erythrocyte distribution width (RBC) [Ratio] 17.1 % High 11.5-15.0 [facility] Comment on above: Order Comment: Speci men Type: BLOOD SPECIMENOrdering Facility: [facility] Address: [address] [place] [address] Performed By: #### 5 7021-8 ####[facility] LABCLIA [id number] [place] [address] Hematocrit (Bld) [Volume fraction] 37.9 % Low 39.0-51.0 [facility] Comment on above: Order Comment: Speci men Type: BLOOD SPECIMENOrdering Facility: [facility] Address: [address] [place] [address] Performed By: #### 5 7021-8 ####[facility] LABCLIA [id number] [place] [address] Hemoglobin (Bld) [Mass/Vol] 12.4 g/dL Low 13.0-17.0 [facility] Comment on above: Order Comment: Speci men Type: BLOOD SPECIMENOrdering Facility: [facility] Address: [address] [place] [address] Performed By: #### 5 7021-8 ####[facility] LABCLIA [id number] [place] [address] Immature granulocytes (Bld) [#/Vol] 10*3/uL Normal <0.10 [facility] Comment on above: Order Comment: Speci men Type: BLOOD SPECIMENOrdering Facility: [facility] Address: [address] [place] [address] Performed By: #### 5 7021-8 ####[facility] LABCLIA [id number] [place] [address] Immature granulocytes/100 WBC (Bld) 0.3 % Normal [facility] Comment on above: Order Comment: Speci men Type: BLOOD SPECIMENOrdering Facility: [facility] Address: [address] [place] [address] Performed By: #### 5 7021-8 ####[facility] LABCLIA [id number] [place] [address] Lymphocytes (Bld) [#/Vol] 1.23 10*3/uL Normal 1.00-4.00 [facility] Comment on above: Order Comment: Speci men Type: BLOOD SPECIMENOrdering Facility: [facility] Address: [address] [place] [address] Performed By: #### 5 7021-8 ####[facility] LABCLIA [id number] [place] [address] Lymphocytes/100 WBC (Bld) 16.3 % Normal [facility] Comment on above: Order Comment: Speci men Type: BLOOD SPECIMENOrdering Facility: [facility] Address: [address] [place] [address] Performed By: #### 5 7021-8 ####[facility] LABCLIA [id number] [place] [address] MCH (RBC) [Entitic mass] 30.7 pg Normal 26.0-34.0 [facility] Comment on above: Order Comment: Speci men Type: BLOOD SPECIMENOrdering Facility: [facility] Address: [address] [place] [address] Performed By: #### 5 7021-8 ####[facility] [facility] [id number] [place] [address] MCHC (RBC) [Mass/Vol] 32.7 g/dL Normal 30.5-36.0 [facility] Comment on above: Order Comment: Speci men Type: BLOOD SPECIMENOrdering Facility: [facility] Address: [address] [place] [address] Performed By: #### 5 7021-8 ####[facility] LABIA [id number] [place] [address] MCV (RBC) [Entitic vol] 93.8 fL Normal 80.0-100.0 [facility] Comment on above: Order Comment: Speci men Type: BLOOD SPECIMENOrdering Facility: [facility] Address: [address] [place] [address] Performed By: #### 5 7021-8 ####[facility] LABCLIA [id number] [place] [address] Monocytes (Bld) [#/Vol] 0.75 10*3/uL Normal <0.87 [facility] Comment on above: Order Comment: Speci men Type: BLOOD SPECIMENOrdering Facility: [facility] Address: [address] [place] [address] Performed By: #### 5 7021-8 ####[facility] LABCLIA [id number] [place] [address] Monocytes/100 WBC (Bld) 9.9 % Normal [facility] Comment on above: Order Comment: Speci men Type: BLOOD SPECIMENOrdering Facility: [facility] Address: [address] [place] [address] Performed By: #### 5 7021-8 ####[facility] LABCLIA [id number] [place] [address] Neutrophils (Bld) [#/Vol] 5.25 10*3/uL Normal 1.45-7.50 [facility] Comment on above: Order Comment: Speci men Type: BLOOD SPECIMENOrdering Facility: [facility] Address: [address] [place] [address] Performed By: #### 5 7021-8 ####[facility] LABCLIA [id number] [place] [address] Neutrophils/100 WBC (Bld) 69.4 % Normal [facility] Comment on above: Order Comment: Speci men Type: BLOOD SPECIMENOrdering Facility: [facility] Address: [address] [place] [address] Performed By: #### 5 7021-8 ####[facility] LABCLIA [id number] [place] [address] Nucleated RBC (Bld) [#/Vol] 10*3/uL Normal <0.01 [facility] Comment on above: Order Comment: Speci men Type: BLOOD SPECIMENOrdering Facility: [facility] Address: [address] [place] [address] Performed By: #### 5 7021-8 ####[facility] LABCLIA [id number] [place] [address] Nucleated RBC/100 WBC (Bld) [Ratio] 0.0 /100 WBC Normal [facility] Comment on above: Order Comment: Speci men Type: BLOOD SPECIMENOrdering Facility: [facility] Address: [address] [place] [address] Performed By: #### 5 7021-8 ####[facility] LABCLIA [id number] [place] [address] Platelet mean volume (Bld) [Entitic vol] 10.2 fL Normal 9.0-12.7 [facility] Comment on above: Order Comment: Speci men Type: BLOOD SPECIMENOrdering Facility: [facility] Address: [address] [place] [address] Performed By: #### 5 7021-8 ####[facility] LABCLIA [id number] [place] [address] Platelets (Bld) [#/Vol] 212 10*3/uL Normal 150-400 [facility] Comment on above: Order Comment: Speci men Type: BLOOD SPECIMENOrdering Facility: [facility] Address: [address] [place] [address] Performed By: #### 5 7021-8 ####[facility] LABIA [id number] [place] [address] RBC (Bld) [#/Vol] 4.04 10*6/uL Low 4.20-6.[address] [facility] Comment on above: Order Comment: Speci men Type: BLOOD SPECIMENOrdering Facility: [facility] Address: [address] [place] [address] Performed By: #### 5 7021-8 ####[facility] LABCLIA [id number] [place] [address] WBC (Bld) [#/Vol] 7.56 10*3/uL Normal 3.70-11.[address] [facility] Comment on above: Order Comment: Speci men Type: BLOOD SPECIMENOrdering Facility: [facility] Address: [address] [place] [address] Performed By: #### 5 7021-8 ####[facility] LABIA [id number] [place] [address] CEA SerPl-mCncon 07-15-2025 Carcinoembryonic Ag [Mass/Vol] 1.9 ng/mL Normal <=2.9 [facility] Comment on above: Order Comment: Speci men Type: BLOOD SPECIMENOrdering Facility: [facility] Address: [address] [place] [address] Result Comment: Carc inoembryonic antigen test is used as an aid in monitoring response to treatment or recurrence in patients with established colorectal, breast, lung, prostatic, pancreatic, and ovarian carcinomas. Clinical correlation is required.The Carcinoembryonic antigen test was performed using the [employer]one[employer] Unicel DXI paramagnetic particle chemiluminescent immunoassay method. Results obtained with different assay methods or kits cannot be used interchangeably. Performed By: #### 2 039-6 ####[facility] LABCLIA [id number] [place] [address] [place] [address] [address] ABD/PEL W IVCONon 025 CT ABD/PEL W IVCON Normal [facility] CT CHEST W IVCONon 5 CT CHEST W IVCON Normal [facility] Comprehensive metabolic 2000 panelon 07-15-2025 Albumin [Mass/Vol] 3.5 g/dL Low 3.9-4.9 [facility] Comment on above: Order Comment: Speci men Type: BLOOD SPECIMENOrdering Facility: [facility] Address: [address] [place] [address] Performed By: #### 2 4323-8 ####[facility] LABCLIA [id number] [place] [address] ALP [Catalytic activity/Vol] 108 U/L Normal 38-113 [facility] Comment on above: Order Comment: Speci men Type: BLOOD SPECIMENOrdering Facility: [facility] Address: [address] [place] [address] Performed By: #### 2 4323-8 ####[facility] LABCLIA [id number] [place] [address] ALT [Catalytic activity/Vol] 16 U/L Normal 10-54 [facility] Comment on above: Order Comment: Speci men Type: BLOOD SPECIMENOrdering Facility: [facility] Address: [address] [place] [address] Performed By: #### 2 4323-8 ####[facility] LABCLIA [id number] [place] [address] Anion gap [Moles/Vol] 9 mmol/L Normal 8-15 [facility] Comment on above: Order Comment: Speci men Type: BLOOD SPECIMENOrdering Facility: [facility] Address: [address] [place] [address] Performed By: #### 2 4323-8 ####[facility] LABCLIA [id number] [place] [address] AST [Catalytic activity/Vol] 16 U/L Normal 14-40 [facility] Comment on above: Order Comment: Speci men Type: BLOOD SPECIMENOrdering Facility: [facility] Address: [address] [place] [address] Performed By: #### 2 4323-8 ####[facility] LABCLIA [id number] [place] [address] Bilirubin [Mass/Vol] 0.5 mg/dL Normal 0.2-1.3 [facility] Comment on above: Order Comment: Speci men Type: BLOOD SPECIMENOrdering Facility: [facility] Address: [address] [place] [address] Performed By: #### 2 4323-8 ####[facility] LABCLIA [id number] [place] [address] Calcium [Mass/Vol] 8.7 mg/dL Normal 8.5-10.2 [facility] Comment on above: Order Comment: Speci men Type: BLOOD SPECIMENOrdering Facility: [facility] Address: [address] [place], [place] [address] Performed By: #### 2 4323-8 ####[facility] LABCLIA [id number] [place] [address] Chloride [Moles/Vol] 107 mmol/L Normal 98-107 [facility] Comment on above: Order Comment: Speci men Type: BLOOD SPECIMENOrdering Facility: [facility] Address: [address] [place], [place] [address] Performed By: #### 2 4323-8 ####[facility] LABCLIA [id number] [place] [address] CO2 [Moles/Vol] 25 mmol/L Normal 22-30 [facility] Comment on above: Order Comment: Speci men Type: BLOOD SPECIMENOrdering Facility: [facility] Address: [address] [place] [address] Performed By: #### 2 4323-8 ####[facility] LABCLIA [id number] [place] [address] Creatinine [Mass/Vol] 0.97 mg/dL Normal 0.73-1.22 [facility] Comment on above: Order Comment: Speci men Type: BLOOD SPECIMENOrdering Facility: [facility] Address: [address] [place] [address] Performed By: #### 2 4323-8 ####[facility] LABCLIA [id number] [place] [address] eGFRcr SerPlBld CKD-EPI 2020 83 mL/min/1.73m??? Normal >=60 [facility] Comment on above: Order Comment: Speci men Type: BLOOD SPECIMENOrdering Facility: [facility] Address: [address] [place] [address] Result Comment: Rebekah mated Glomerular Filtration Rate [...] actual GFR. Performed By: #### 2 4323-8 ####[facility] LABCLIA [id number] [place] [address] Glucose [Mass/Vol] 84 mg/dL Normal 74-99 [facility] Comment on above: Order Comment: Speci men Type: BLOOD SPECIMENOrdering Facility: [facility] Address: [address] [place] [address] Result Comment: The [place] Diabetes Association (ADA) provides guidance for cutoff [...] Standards of Medical Care in Diabetes 2016, [place] Diabetes Association. Diabetes Care. 2016.39(Suppl 1). Performed By: #### 2 4323-8 ####[facility] LABCLIA [id number] [place] [address] Potassium [Moles/Vol] 3.8 mmol/L Normal 3.7-5.1 [facility] Comment on above: Order Comment: Speci men Type: BLOOD SPECIMENOrdering Facility: [facility] Address: [address] [place] [address] Performed By: #### 2 4323-8 ####[facility] LABCLIA [id number] [place] [address] Protein [Mass/Vol] 6.0 g/dL Low 6.3-8.0 [facility] Comment on above: Order Comment: Speci men Type: BLOOD SPECIMENOrdering Facility: [facility] Address: [address] [place] [address] Performed By: #### 2 4323-8 ####[facility] LABCLIA [id number] [place] [address] Sodium [Moles/Vol] 141 mmol/L Normal 136-144 [facility] Comment on above: Order Comment: Speci men Type: BLOOD SPECIMENOrdering Facility: [facility] Address: [address] [place] [address] Performed By: #### 2 4323-8 ####[facility] LABCLIA [id number] [place] [address] Urea nitrogen [Mass/Vol] 14 mg/dL Normal 9-24 [facility] Comment on above: Order Comment: Speci men Type: BLOOD SPECIMENOrdering Facility: [facility] Address: [address] [place] [address] Performed By: #### 2 4323-8 ####[facility] LABCLIA [id number] [place] [address] ALLIED HEALTHon 07-13-2025 ALLIED HEALTH HNO ID: [id number] Author: SUNITA KEENAN RT(R) Service: Radiology Author Type: Technologist [...] PATIENT PRESENTS WITH AN 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 Anesthesia: No. Aromatherapy Administered: No PERIPHERAL IV DATA: Not applicable and injected 10ml elucirem into port SIGNED BY: RT Mehdi(R) July 13, 2025 10:56 AM [facility] MRI RECTUM WO/W IVCONon - MRI RECTUM WO/W IVCON * * *Final Report* * * DATE OF EXAM: Jul 13 2025 12:59PM [facility] 0754 - MRI RECTUM WO/W IVCON / [...] as remote as 09/11/2022 TECHNIQUE: Magnet: MAGNETOM Modernizing Medicinea scanner. Multiplanar MRI with multiple sequences before [...] nodes: No. Suspicious Extramesorectal lymph nodes: No. 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SHARON Transcribe Date/Time: Jul 13 2025 2:43P Dictated by : LUIS TOSCANO MD This examination was interpreted and the report reviewed and electronically signed by: LUIS TOSCANO MD on Jul 13 2025 3:00PM EST [id number] Normal [facility] Ambulatory Visit Summaryon 0 07-12-2025 Ambulatory Visit Summary Ambulatory Visit Summary MERVAT GRAYSON :1950 Visit Date:07/12/2025 Ambulatory Visit Instructions Your [...] Duration: 90 Days Refills: 3 Pickup at [facility]pharmacy #[id number] Unchanged ascorbic acid (Vitamin C) 1,000 Milligram [...] physician if questions or concerns Pharmacy Information [facility]pharmacy #[id number]: [address] [place] [id number] [phone] Allergies No Known Allergies Problems Ongoing - [...] signed up for this yet, please contact [employer] at [phone] to get signed up today. Language Information Language assistance services are available as needed. [facility] Urology Office/Clinic Noteon 07-12-2025 Urology Office/Clinic Note [...] stones Pt here for follow up to [facility] on 06/18 for L flank pain [...] E&M of Est. Patient Moderate 30-39 Min 50891 2. Kidney stones (N20.0: Calculus of kidney) [...] day(s), # 180 tab(s), Refills(s) 3, Pharmacy: [facility]/pharmacy #6173, 188, cm, 07/12/25 8:12:00 EDT, Height/Length Dosing, 106.1, kg, 07/12/25 8:12:00 EDT, Weight Dosing potassium bicarbonate, 20 mEq = 1 tab(s), Oral, BID, X 90 day(s), # 180 tab(s), Refills(s) 3, Pharmacy: [facility], 188, cm, 02/15/25 8:52:00 EDT, Height/Length Dosing, 105, kg, 02/15/25 8:52:00 EDT, Weight Dosing E&M of Est. Patient Moderate 30-39 Min 95222 3. BPH with urinary obstruction (N40.1: Benign [...] E&M of Est. Patient Moderate 30-39 Min 52022 Urnls Dip Stick Auto w/o Microscopy POC 96567 4. Erectile dysfunction (more content not included)... Normal [facility] Comment on above: Result Comment: Elec [...] Noble Fernández MD Transcribed by: VEENA Technologist: BRITTANY Normal [facility] XR Abdomen 1 Viewon 07-01-20 XR [...] Roshan Boo DO Transcribed by: VEENA Technologist: SHELLI Madsen [facility] BMPon 06-18-2025 Anion gap [Moles/Vol] 10 mmol/L Normal 6-16 [facility] Comment on above: Performed By: #### 2 862838 #### [facility] [address] [place] [address] BUN/Creat Ratio 15 No Units Normal 10-20 [facility] Comment on above: Performed By: #### 2 015679 #### [facility] [address] [place] [address] Calcium [Mass/Vol] 8.9 mg/dL Normal 8.9-11.1 [facility] Comment on above: Performed By: #### 2 843460 #### [facility] [address] [place] [address] Chloride [Moles/Vol] 107 mmol/L Normal 101-111 [facility] Comment on above: Performed By: #### 2 499926 #### [facility] [address] [place] [address] CO2 [Moles/Vol] 27 mmol/L Normal 21-31 [facility] Comment on above: Performed By: #### 2 220574 #### [facility] [address] [place] [address] Creatinine [Mass/Vol] 1.2 mg/dL Normal 0.5-1.3 [facility] Comment on above: Performed By: #### 2 050470 #### [facility] [address] [place] [address] Glucose [Mass/Vol] 96 mg/dL Normal 55-199 [facility] Comment on above: Performed By: #### 2 430476 #### [facility] [address] [place] [address] Potassium [Moles/Vol] 4.2 mmol/L Normal 3.5-5.3 [facility] Comment on above: Performed By: #### 2 830384 #### [facility] [address] [place] [address] Sodium [Moles/Vol] 140 mmol/L Normal 135-145 [facility] Comment on above: Performed By: #### 2 480061 #### [facility] [address] [place] [address] Urea nitrogen [Mass/Vol] 18 mg/dL Normal 5-21 [facility] Comment on above: Performed By: #### 2 679569 #### [facility] [address] [place] [address] CBC w/ Auto Diffon 5 Basophil Absolute 0.0 E9/L Normal 0.0-0.2 [facility] Comment on above: Performed By: #### 2 228077 #### [facility] [address] [place] [address] Basophils/100 WBC (Bld) 0.4 % Normal 0.0-2.0 [facility] Comment on above: Performed By: #### 2 633896 #### [facility] [address] [place] [address] Eos Absolute 0.1 E9/L Normal 0.0-0.5 [facility] Comment on above: Performed By: #### 2 105355 #### [facility] [address] [place] [address] Eosinophils/100 WBC (Bld) 0.9 % Normal 0.0-8.0 [facility] Comment on above: Performed By: #### 2 773949 #### [facility] [address] [place] [address] Erythrocyte distribution width (RBC) [Ratio] 17.8 % High 10.9-14.2 [facility] Comment on above: Performed By: #### 2 809142 #### [facility] [address] [place] [address] Hematocrit (Bld) [Volume fraction] 37.2 % Low 37.7-49.0 [facility] Comment on above: Performed By: #### 2 011044 #### [facility] [address] [place] [address] Hemoglobin (Bld) [Mass/Vol] 12.6 g/dL Low 13.5-17.5 [facility] Comment on above: Performed By: #### 2 566241 #### [facility] [address] [place] [address] Lymph Absolute 0.9 E9/L Low 1.0-4.0 [facility] Comment on above: Performed By: #### 2 614524 #### [facility] [address] [place] [address] Lymphocytes/100 WBC (Bld) 10.4 % Low 14.0-50.0 [facility] Comment on above: Performed By: #### 2 973984 #### [facility] [address] [place] [address] MCH (RBC) [Entitic mass] 31.2 pg Normal 27.0-34.0 [facility] Comment on above: Performed By: #### 2 683260 #### [facility] [address] [place] [address] MCHC (RBC) [Mass/Vol] 33.9 g/dL Normal 31.4-36.0 [facility] Comment on above: Performed By: #### 2 621919 #### [facility] [address] [place] [address] MCV (RBC) [Entitic vol] 92.2 fL Normal 80.0-100.0 [facility] Comment on above: Performed By: #### 2 554477 #### [facility] [address] [place] [address] [place] Absolute 0.9 E9/L Normal 0.2-1.0 [facility] Comment on above: Performed By: #### 2 856842 #### [facility] [address] [place] [address] Monocytes/100 WBC (Bld) 9.8 % Normal 4.0-14.0 [facility] Comment on above: Performed By: #### 2 757738 #### [facility] [address] [place] [address] Neutro Absolute 6.9 E9/L Normal 2.0-7.5 [facility] Comment on above: Performed By: #### 2 404669 #### [facility] [address] [place] [address] Neutro Auto 78.5 % High 36.0-75.0 [facility] Comment on above: Performed By: #### 2 974357 #### [facility] [address] [place] [address] Platelet 211.0 E9/L Normal 150.0-500.0 [facility] Comment on above: Performed By: #### 2 233574 #### [facility] [address] [place] [address] Platelet mean volume (Bld) [Entitic vol] 8.3 fL Normal 6.4-10.8 [facility] Comment on above: Performed By: #### 2 120995 #### [facility] [address] [place] [address] RBC 4.0 E12/L Low 4.3-5.9 [facility] Comment on above: Performed By: #### 2 071440 #### [facility] [address] [place] [address] WBC 8.8 E9/L Normal 4.0-11.0 [facility] Comment on above: Performed By: #### 2 850856 #### [facility] [address] [place] [address] CNPNon 06-18-2025 CNPN Normal [facility] CT Abdomen/Pelvis w/ Contras ton 06-18-2025 [...] MD Transcribed by: VEENA Technologist: DENTON Madsen [facility] ED Clinical Summaryon 2024 ED Clinical Summary ED Clinical Summary [place] [address] ED Clinical Summary Person Information Name: MERVAT GRAYSON [facility] Age: 74 Years : 1950 Sex: Male Language: Maltese PCP: Lorenzo MARIN DO Marital Status: Visit [...] 06/18/2025 17:53:47 06/18/2025 17:53:47 06/18/2025 17:53:47 ADDRESS: [address] [place] [id number] PHYS DOC NOTES: MEDICAL INFORMATION: Prescriptions Given: New Medications [id number], [address] [place], [place] [phone], [phone] oxycodone (oxyCODONE 5 mg Tab) 1 Tablets [...] Follow up: With: Address: When: Corey SINGLETON [address] [place] [address], [facility] [place] [address] Business (1) In 3 days 06/21/2025 DIAGNOSIS: Kidney stone Normal [facility] ED Note-Physicianon 06-18-20 ED Note-Physician ED Note-Physician Basic Information Time Seen: Jose Armandobrie RogersYuridia 06/18/2025 13:55 Chief Complaint pt presents to [...] day(s), # 15 tab(s), Refills(s) 0, Pharmacy: [facility]/pharmacy #6173, 188, cm, 06/18/25 12:31:00 EDT, Height/Length [...] Corey SINGLETON In 3 days 06/21/[address] [place], [place] [address]- Business (1) Additional Instructions: Patient Education Kidney Stones [...] made to ensure accuracy, however, inadvertently computerized compensation specialist mistakes may be present. Appropriate healthcare PPE was used in evaluating this patient. Problem List/Past Medical History Ongoing BMI 31.0-31.9,adult BPH with urinary obstruction Cervical spinal stenosis Er (more content not included)... Normal [facility] Comment on above: Result Comment: Elec tronically Signed By: Ellis Milian PA-C\.br\Date and Time Signed: 06/18/25 17:50 EDT\.br\Electronically Co-Signed By: Yuridia Houser M.D.\.br\Date and Time Co-Signed: 06/18/25 17:57 EDT ED Patient Summaryon 025 ED Patient Summary ED Patient Summary [address] [address] Patient Discharge Instructions Person Information Name: MERVAT GRAYSON Age: 74 Years Arrival Date: 06/18/2025 12:20:59 Discharge Diagnosis: Kidney stone Primary Care Physician: Lorenzo MARIN DO Provider Information Primary Provider: Corrina Rogers, Yuridia Walter Advanced Nursing Information Systems Coordinator:Ellis Milian PA-C The exam and treatment you received in the Emergency Department were for an urgent problem and are not intended as complete care. It is important that you follow up with a doctor, nurse practitioner, or physician???s gallery assistant for ongoing care. If your symptoms become worse or you do not improve as expected and you are unable to reach your usual health care provider, you should return to the Emergency Department. We are available 24 hours a day. MERVAT GRAYSON has been given the following list of patient education materials, prescriptions and follow-up instructions: Follow-up Instructions: With: Address: When: Corey SINGLETON [address] [place], [place] [id number] [employer] (1) In 3 days 06/21/2025 In the event that this physician does not participate in your insurance network, please consult with your insurance company to find a nearby participating provider. Patient Education Materials: Kidney Stones A MESSAGE TO ALL PATIENTS REGARDING OPIOIDS PRESCRIPTION OPIOIDS: WHAT YOU NEED TO KNOW Prescription opioids can be used to help relieve ecwhgbgr-zi-sfbrox pain and are often prescribed following a [...] care profession (more content not included)... Normal [facility] Extra Blueon 06-18-2025 Tube Collected Plasma Yes Invalid Interpretation Code [facility] Comment on above: Performed By: #### 1 [id number] ####[facility] [id number] [place] [address] [facility] Panelon 06-18-2025 Albumin [Mass/Vol] 3.7 g/dL Normal 3.3-5.0 [facility] Comment on above: Performed By: #### 2 799668 #### [facility] [address] [place] [address] Albumin/Globulin [Mass ratio] 1.5 {ratio} Normal 1.1-2.2 [facility] Comment on above: Performed By: #### 2 492299 #### [facility] [address] [place] [address] Alk Phos 85 Int._Unit/L Normal 21-98 [facility] Comment on above: Performed By: #### 2 695244 #### [facility] [address] [place] [address] ALT 14 Int._Unit/L Normal 6-46 [facility] Comment on above: Performed By: #### 2 563738 #### [facility] [address] [place] [address] AST 16 Int._Unit/L Normal 5-43 [facility] [facility] Comment on above: Performed By: #### 2 [id number] #### [facility] [address] [place] [address] Bili Direct 0.2 mg/dL Normal 0.0-0.4 [facility] Comment on above: Performed By: #### 2 [id number] #### [facility] [address] [place] [address] Bili Indirect 0.8 mg/dL Normal 0.1-0.9 [facility] Comment on above: Performed By: #### 2 [id number] #### [facility] [address] [place] [address] Bili Total 1.0 mg/dL Normal 0.0-1.1 [facility] Comment on above: Performed By: #### 2 [id number] #### [facility] [address] [place] [address] Globulin (S) [Mass/Vol] 2.5 g/dL Normal 1.4-4.0 [facility] Comment on above: Performed By: #### 2 [id number] #### [facility] [address] [place] [address] Protein [Mass/Vol] 6.2 g/dL Normal 6.0-7.8 [facility] Comment on above: Performed By: #### 2 [id number] #### [facility] [address] [place] [address] Lipase Levelon 06-18-2025 Lipase Lvl 8 unit/L Low 13-58 [facility] Comment on above: Performed By: #### 2 859907 #### [facility] [address] [place] [address] UA with Cult Rflxon 06-18-20 25 Color (U) Light-Menard Abnormal Yellow [facility] Comment on above: Result Comment: Micr oscopic readings are only performed on those samples that meet specific criteria set forth by [facility]. Performed By: #### 4 [id number] #### [facility] [address] [place] [address] Glucose (U) [Mass/Vol] Negative Normal Negative [facility] Comment on above: Performed By: #### 4 [id number] #### [facility] [address] [place] [address] Ketones Ql (U) Negative Normal Negative [facility] Comment on above: Performed By: #### 4 [id number] #### [facility] [address] [place] [address] UA Blood 3+ mg/dL Abnormal Negative [facility] Comment on above: Performed By: #### 4 [id number] #### [facility] [address] [place] [address] UA Budding Yeast 2+ CD:[id number] Abnormal Fi [facility] Comment on above: Performed By: #### 4 [id number] #### [facility] [address] [place] [address] UA Clarity Turbid Abnormal Clear [facility] Comment on above: Performed By: #### 4 [id number] #### [facility] [address] [place] [address] UA Leuk Est Negative Normal Negative [facility] Comment on above: Performed By: #### 4 [id number] #### [facility] [address] [place] [address] UA Mucous Trace Normal Negative [facility] Comment on above: Performed By: #### 4 [id number] #### [facility] [address] [place] [address] UA Nitrite Negative Normal Negative [facility] Comment on above: Performed By: #### 4 [id number] #### [facility] [address] [place] [address] UA pH 5.5 Invalid Interpretation Code 5.0-9.0 [facility] Comment on above: Performed By: #### 4 [id number] #### [facility] [address] [place] [address] UA Protein 1+ mg/dL Abnormal Negative [facility] Comment on above: Performed By: #### 4 [id number] #### [facility] [address] [place] [address] UA RBC >75 Abnormal 0-3 [facility] Comment on above: Performed By: #### 4 [id number] #### [facility] [address] [place] [address] UA Spec Grav 1.021 Invalid Interpretation Code 1.005-1.030 [facility] Comment on above: Performed By: #### 4 [id number] #### [facility] [address] [place] [address] UA Squam Epithelial 0-2 Invalid Interpretation Code [facility] Comment on above: Performed By: #### 4 [id number] #### [facility] [address] [place] [address] UA Urobilinogen Negative Normal Negative [facility] Comment on above: Performed By: #### 4 [id number] #### [facility] [address] [place] [address] Urobilinogen (U) [Mass/Vol] Negative Normal Negative [facility] Comment on above: Performed By: #### 4 [id number] #### [facility] [address] [place] [address] UA Spec Desc Clean Catch Normal [facility] Comment on above: Performed By: #### 4 [id number] #### [facility] [address] [place] [address] eGFRon 06-18-2025 eGFR 64 mL/min/1.73 m2 Normal >=59 [facility] Comment on above: Performed By: #### 1 [id number] #### [facility] [address] [place] [address] XR Elbow - right 3 Viewson 0 04-28-2025 Imaging Result: AP Lateral and oblique right elbow: No acute fracture or dislocation Moderate effusion Moderate to severe ulna- humeral arthritic changes with spurring Mild radio-capitellar arthritic changes 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 [facility] Radiology Study observation (narrative) [facility] CARCINOEMBRYONIC ANTIGENon 0 04-13-2025 Carcinoembryonic Ag [Mass/Vol] 1.6 ng/mL [facility] - 2.9 ng/mL [facility] Comment on above: Carcinoembryonic ant igen test is used as an aid in monitoring response to treatment or recurrence in patients with established colorectal, breast, lung, prostatic, pancreatic, and ovarian carcinomas. Clinical correlation is required. The Carcinoembryonic antigen test was performed using the [employer] Unicel DXI paramagnetic particle chemiluminescent immunoassay method. Results obtained with different assay methods or kits cannot be used interchangeably. Carcinoembryonic Ag [Mass/Vo l]on 04-13-2025 Interpretation and review of laboratory results Normal [facility] CBC W Auto Differential pane l (Bld)on 04-12-2025 Basophils (Bld) [#/Vol] 0.05 10*3/uL [facility] Basophils/100 WBC (Bld) 0.6 % [facility] Differential cell count method Nom (Bld) Auto [facility] Eosinophils (Bld) [#/Vol] 0.17 10*3/uL [facility] Eosinophils/100 WBC (Bld) 1.9 % [facility] Erythrocyte distribution width (RBC) [Ratio] 16.1 % High 11.5 - 15.0 % [facility] Hematocrit (Bld) [Volume fraction] 37 % Low 39.0 - 51.0 % [facility] Hemoglobin (Bld) [Mass/Vol] 12 g/dL Low 13.0 - 17.0 g/dL [facility] Immature granulocytes (Bld) [#/Vol] [facility] Immature granulocytes/100 WBC (Bld) 0.2 % [facility] Interpretation and review of laboratory results Abnormal [facility] Lymphocytes (Bld) [#/Vol] 0.84 10*3/uL Low [facility] Lymphocytes/100 WBC (Bld) 9.5 % [facility] MCH (RBC) [Entitic mass] 29.9 pg 26.0 - 34.0 pg [facility] MCHC (RBC) [Mass/Vol] 32.4 g/dL 30.5 - 36.0 g/dL [facility] MCV (RBC) [Entitic vol] 92.3 fL 80.0 - 100.0 fL [facility] Monocytes (Bld) [#/Vol] 0.67 10*3/uL [facility] Monocytes/100 WBC (Bld) 7.6 % [facility] Neutrophils (Bld) [#/Vol] 7.11 10*3/uL [facility] Neutrophils/100 WBC (Bld) 80.2 % [facility] Nucleated RBC (Bld) [#/Vol] [facility] Nucleated RBC/100 WBC (Bld) [Ratio] 0 % /100 WBC [facility] Platelet mean volume (Bld) [Entitic vol] 9.4 fL 9.0 - 12.7 fL [facility] Platelets (Bld) [#/Vol] 232 10*3/uL [facility] RBC (Bld) [#/Vol] 4.01 10*6/uL Low 4.20 - 6.0 0 m/uL [facility] WBC (Bld) [#/Vol] 8.86 10*3/uL [facility] Basophils (Bld) [#/Vol] 0.05 10*3/uL Normal <0.11 [facility] Comment on above: Order Comment: Speci men Type: BLOOD SPECIMENOrdering Facility: [facility] Address: [address] [place] [address] Performed By: #### 5 7021-8 ####[facility] LABCLIA [id number] [place] [address] Basophils/100 WBC (Bld) 0.6 % Normal [facility] Comment on above: Order Comment: Speci men Type: BLOOD SPECIMENOrdering Facility: [facility] Address: [address] [place] [address] Performed By: #### 5 7021-8 ####[facility] LABCLIA [id number] [place] [address] Differential cell count method Nom (Bld) Auto Normal [facility] Comment on above: Order Comment: Speci men Type: BLOOD SPECIMENOrdering Facility: [facility] Address: [address] [place] [address] Performed By: #### 5 7021-8 ####[facility] LABCLIA [id number] [place] [address] Eosinophils (Bld) [#/Vol] 0.17 10*3/uL Normal <0.46 [facility] Comment on above: Order Comment: Speci men Type: BLOOD SPECIMENOrdering Facility: [facility] Address: [address] [place] [address] Performed By: #### 5 7021-8 ####[facility] LABCLIA [id number] [place] [address] Eosinophils/100 WBC (Bld) 1.9 % Normal [facility] Comment on above: Order Comment: Speci men Type: BLOOD SPECIMENOrdering Facility: [facility] Address: [address] [place] [address] Performed By: #### 5 7021-8 ####[facility] LABCLIA [id number] [place] [address] Erythrocyte distribution width (RBC) [Ratio] 16.1 % High 11.5-15.0 [facility] Comment on above: Order Comment: Speci men Type: BLOOD SPECIMENOrdering Facility: [facility] Address: [address] [place] [address] Performed By: #### 5 7021-8 ####[facility] LABCLIA [id number] [place] [address] Hematocrit (Bld) [Volume fraction] 37.0 % Low 39.0-51.0 [facility] Comment on above: Order Comment: Speci men Type: BLOOD SPECIMENOrdering Facility: [facility] Address: [address] [place] [address] Performed By: #### 5 7021-8 ####[facility] LABCLIA [id number] [place] [address] Hemoglobin (Bld) [Mass/Vol] 12.0 g/dL Low 13.0-17.0 [facility] Comment on above: Order Comment: Speci men Type: BLOOD SPECIMENOrdering Facility: [facility] Address: [address] [place] [address] Performed By: #### 5 7021-8 ####[facility] LABCLIA [id number] [place] [address] Immature granulocytes (Bld) [#/Vol] 10*3/uL Normal <0.10 [facility] Comment on above: Order Comment: Speci men Type: BLOOD SPECIMENOrdering Facility: [facility] Address: [address] [place] [address] Performed By: #### 5 7021-8 ####[facility] LABCLIA [id number] [place] [address] Immature granulocytes/100 WBC (Bld) 0.2 % Normal [facility] Comment on above: Order Comment: Speci men Type: BLOOD SPECIMENOrdering Facility: [facility] Address: [address] [place] [address] Performed By: #### 5 7021-8 ####[facility] LABCLIA [id number] [place] [address] Lymphocytes (Bld) [#/Vol] 0.84 10*3/uL Low 1.00-4.00 [facility] Comment on above: Order Comment: Speci men Type: BLOOD SPECIMENOrdering Facility: [facility] Address: [address] [place] [address] Performed By: #### 5 7021-8 ####[facility] LABCLIA [id number] [place] [address] Lymphocytes/100 WBC (Bld) 9.5 % Normal [facility] Comment on above: Order Comment: Speci men Type: BLOOD SPECIMENOrdering Facility: [facility] Address: [address] [place] [address] Performed By: #### 5 7021-8 ####[facility] LABCLIA [id number] [place] [address] MCH (RBC) [Entitic mass] 29.9 pg Normal 26.0-34.0 [facility] Comment on above: Order Comment: Speci men Type: BLOOD SPECIMENOrdering Facility: [facility] Address: [address] [place] [address] Performed By: #### 5 7021-8 ####[facility] LABCLIA [id number] [place] [address] MCHC (RBC) [Mass/Vol] 32.4 g/dL Normal 30.5-36.0 [facility] Comment on above: Order Comment: Speci men Type: BLOOD SPECIMENOrdering Facility: [facility] Address: [address] [place] [address] Performed By: #### 5 7021-8 ####[facility] LABCLIA [id number] [place] [address] MCV (RBC) [Entitic vol] 92.3 fL Normal 80.0-100.0 [facility] Comment on above: Order Comment: Speci men Type: BLOOD SPECIMENOrdering Facility: [facility] Address: [address] [place] [address] Performed By: #### 5 7021-8 ####[facility] LABCLIA [id number] [place] [address] Monocytes (Bld) [#/Vol] 0.67 10*3/uL Normal <0.87 [facility] Comment on above: Order Comment: Speci men Type: BLOOD SPECIMENOrdering Facility: [facility] Address: [address] [place] [address] Performed By: #### 5 7021-8 ####[facility] LABCLIA [id number] [place] [address] Monocytes/100 WBC (Bld) 7.6 % Normal [facility] Comment on above: Order Comment: Speci men Type: BLOOD SPECIMENOrdering Facility: [facility] Address: [address] [place] [address] Performed By: #### 5 7021-8 ####[facility] LABCLIA [id number] [place] [address] Neutrophils (Bld) [#/Vol] 7.11 10*3/uL Normal 1.45-7.50 [facility] Comment on above: Order Comment: Speci men Type: BLOOD SPECIMENOrdering Facility: [facility] Address: [address] [place] [address] Performed By: #### 5 7021-8 ####[facility] LABCLIA [id number] [place] [address] Neutrophils/100 WBC (Bld) 80.2 % Normal [facility] Comment on above: Order Comment: Speci men Type: BLOOD SPECIMENOrdering Facility: [facility] Address: [address] [place] [address] Performed By: #### 5 7021-8 ####[facility] LABCLIA [id number] [place] [address] Nucleated RBC (Bld) [#/Vol] 10*3/uL Normal <0.01 [facility] Comment on above: Order Comment: Speci men Type: BLOOD SPECIMENOrdering Facility: [facility] Address: [address] [place] [address] Performed By: #### 5 7021-8 ####[facility] LABCLIA [id number] [place] [address] Nucleated RBC/100 WBC (Bld) [Ratio] 0.0 /100 WBC Normal [facility] Comment on above: Order Comment: Speci men Type: BLOOD SPECIMENOrdering Facility: [facility] Address: [address] [place] [address] Performed By: #### 5 7021-8 ####[facility] LABIA [id number] [place] [address] Platelet mean volume (Bld) [Entitic vol] 9.4 fL Normal 9.0-12.7 [facility] Comment on above: Order Comment: Speci men Type: BLOOD SPECIMENOrdering Facility: [facility] Address: [address] [place] [address] Performed By: #### 5 7021-8 ####[facility] LABCLIA [id number] [place] [address] Platelets (Bld) [#/Vol] 232 10*3/uL Normal 150-400 [facility] Comment on above: Order Comment: Speci men Type: BLOOD SPECIMENOrdering Facility: [facility] Address: [address] [place] [address] Performed By: #### 5 7021-8 ####[facility] LABCLIA [id number] [place] [address] RBC (Bld) [#/Vol] 4.01 10*6/uL Low 4.20-6.[address] [facility] Comment on above: Order Comment: Speci men Type: BLOOD SPECIMENOrdering Facility: [facility] Address: [address] [place], [place] [address] Performed By: #### 5 7021-8 ####[facility] LABIA [id number] [place] [address] WBC (Bld) [#/Vol] 8.86 10*3/uL Normal 3.70-11.[address] [facility] Comment on above: Order Comment: Speci men Type: BLOOD SPECIMENOrdering Facility: [facility] Address: [address] [place] [address] Performed By: #### 5 7021-8 ####[facility] LABIA [id number] [place] [address] CEA SerPl-mCncon 04-12-2025 Carcinoembryonic Ag [Mass/Vol] 1.6 ng/mL Normal <=2.9 [facility] Comment on above: Order Comment: Speci men Type: BLOOD SPECIMENOrdering Facility: [facility] Address: [address] [place], [place] [address] Result Comment: Carc inoembryonic antigen test is [...] used interchangeably. Performed By: #### 2 039-6 ####[facility] LABCLIA [id number] [place] [id number] [place] CNOVSPon 04-12-2025 CNOVSP Normal [facility] Comprehensive metabolic 2000 panelOrdered By: Ti Dooley on 04-12-2025 Albumin [Mass/Vol] 3.7 g/dL Low 3.9 - 4.9 g/dL [facility] ALP [Catalytic activity/Vol] 111 U/L 38 - 113 U/L [facility] ALT [Catalytic activity/Vol] 10 U/L 10 - 54 U/L [facility] Anion gap [Moles/Vol] 11 mmol/L 8 - 15 mmol/L [facility] AST [Catalytic activity/Vol] 14 U/L 14 - 40 U/L [facility] Bilirubin [Mass/Vol] 0.4 mg/dL 0.2 - 1 .3 mg/dL [facility] Calcium [Mass/Vol] 9.5 mg/dL 8.5 - 10. 2 mg/dL [facility] Chloride [Moles/Vol] 105 mmol/L 98 - 10 7 mmol/L [facility] CO2 [Moles/Vol] 24 mmol/L 22 - 30 mmol/L [facility] Creatinine [Mass/Vol] 0.97 mg/dL 0.73 - 1.22 mg/dL [facility] GFR/1.73 sq M.predicted among non-blacks MDRD (S/P/Bld) [Vol rate/Area] 83 mL/min/{1.73_m2} - PINF [facility] Comment on above: Estimated Glomerular Filtration Rate [...] [Mass/Vol] 92 mg/dL 74 - 99 mg/dL [facility] Comment on above: The [place] Diab[employer] s Association (ADA) provides guidance for [...] Standards of Medical Care in Diabetes 2016, [place] [employer]. Diabetes Care. 2016.39(Suppl 1). Interpretation and review of laboratory results Abnormal [facility] Potassium [Moles/Vol] 4.1 mmol/L 3.7 - 5.1 mmol/L [facility] Protein [Mass/Vol] 6.2 g/dL Low 6.3 - 8.0 g/dL [facility] Sodium [Moles/Vol] 140 mmol/L 136 - 144 mmol/L [facility] Urea nitrogen [Mass/Vol] 19 mg/dL 9 - 24 mg/dL [facility] Comprehensive metabolic 2000 panelon 04-12-2025 Albumin [Mass/Vol] 3.7 g/dL Low 3.9-4.9 [facility] Comment on above: Order Comment: Speci men Type: BLOOD SPECIMENOrdering Facility: [facility] Address: [address] [place] [address] Performed By: #### 2 4323-8 ####[facility] LABCLIA [id number] [place] [address] ALP [Catalytic activity/Vol] 111 U/L Normal 38-113 [facility] Comment on above: Order Comment: Speci men Type: BLOOD SPECIMENOrdering Facility: [facility] Address: [address] [place] [address] Performed By: #### 2 4323-8 ####[facility] LABCLIA [id number] [place] [address] ALT [Catalytic activity/Vol] 10 U/L Normal 10-54 [facility] Comment on above: Order Comment: Speci men Type: BLOOD SPECIMENOrdering Facility: [facility] Address: [address] [place] [address] Performed By: #### 2 4323-8 ####[facility] LABCLIA [id number] [place] [address] Anion gap [Moles/Vol] 11 mmol/L Normal 8-15 [facility] Comment on above: Order Comment: Speci men Type: BLOOD SPECIMENOrdering Facility: [facility] Address: [address] [place] [address] Performed By: #### 2 4323-8 ####[facility] LABCLIA [id number] [place] [address] AST [Catalytic activity/Vol] 14 U/L Normal 14-40 [facility] Comment on above: Order Comment: Speci men Type: BLOOD SPECIMENOrdering Facility: [facility] Address: [address] [place] [address] Performed By: #### 2 4323-8 ####[facility] LABCLIA [id number] [place] [address] Bilirubin [Mass/Vol] 0.4 mg/dL Normal 0.2-1.3 [facility] Comment on above: Order Comment: Speci men Type: BLOOD SPECIMENOrdering Facility: [facility] Address: [address] [place] [address] Performed By: #### 2 4323-8 ####[facility] LABCLIA [id number] [place] [address] Calcium [Mass/Vol] 9.5 mg/dL Normal 8.5-10.2 [facility] Comment on above: Order Comment: Speci men Type: BLOOD SPECIMENOrdering Facility: [facility] Address: [address] [place] [address] Performed By: #### 2 4323-8 ####[facility] LABCLIA [id number] [place] [address] Chloride [Moles/Vol] 105 mmol/L Normal 98-107 [facility] Comment on above: Order Comment: Speci men Type: BLOOD SPECIMENOrdering Facility: [facility] Address: [address] [place] [address] Performed By: #### 2 4323-8 ####[facility] LABCLIA [id number] [place] [address] CO2 [Moles/Vol] 24 mmol/L Normal 22-30 [facility] Comment on above: Order Comment: Speci men Type: BLOOD SPECIMENOrdering Facility: [facility] Address: [address] [place] [address] Performed By: #### 2 4323-8 ####[facility] LABCLIA [id number] [place] [address] Creatinine [Mass/Vol] 0.97 mg/dL Normal 0.73-1.22 [facility] Comment on above: Order Comment: Nazario brooks Type: BLOOD SPECIMENOrdering Facility: [facility] Address: [address] [place] [address] Performed By: #### 2 4323-8 ####[facility] LABCLIA [id number] [place] [address] Creatinine and Glomerular filtration rate.predicted panel (S/P/Bld) 83 mL/min/1.73m??? Normal >=60 [facility] Comment on above: Order Comment: Nazario brooks Type: BLOOD SPECIMENOrdering Facility: [facility] Address: [address] [place] [address] Result Comment: Rebekah mated Glomerular Filtration Rate [...] actual GFR. Performed By: #### 2 4323-8 ####[facility] LABCLIA [id number] [place] [address] Glucose [Mass/Vol] 92 mg/dL Normal 74-99 [facility] Comment on above: Order Comment: Nazario brooks Type: BLOOD SPECIMENOrdering Facility: [facility] Address: [address] [place] [address] Result Comment: The [place] Diabetes Association (ADA) provides guidance for cutoff [...] Standards of Medical Care in Diabetes 2016, [place] [employer]. Diabetes Care. 2016.39(Suppl 1). Performed By: #### 2 4323-8 ####[facility] LABCLIA [id number] [place] [address] Potassium [Moles/Vol] 4.1 mmol/L Normal 3.7-5.1 [facility] Comment on above: Order Comment: Speci men Type: BLOOD SPECIMENOrdering Facility: [facility] Address: [address] [place] [address] Performed By: #### 2 4323-8 ####[facility] LABCLIA [id number] [place] [address] Protein [Mass/Vol] 6.2 g/dL Low 6.3-8.0 [facility] Comment on above: Order Comment: Speci men Type: BLOOD SPECIMENOrdering Facility: [facility] Address: [address] [place] [address] Performed By: #### 2 4323-8 ####[facility] LABCLIA [id number] [place] [address] Sodium [Moles/Vol] 140 mmol/L Normal 136-144 [facility] Comment on above: Order Comment: Speci men Type: BLOOD SPECIMENOrdering Facility: [facility] Address: [address] [place] [address] Performed By: #### 2 4323-8 ####[facility] LABCLIA [id number] [place] [address] Urea nitrogen [Mass/Vol] 19 mg/dL Normal 9-24 [facility] [facility] Comment on above: Order Comment: Speci men Type: BLOOD SPECIMENOrdering Facility: [facility] Address: [address] [place] [address] Performed By: #### 2 4323-8 ####[facility] LABCLIA [id number] [place] [address] Yaron 04-08-2025 CNPN Telephone (FVPRAD) MERVAT GRAYSON ([id number]) 1950 M Date Time Provider Department 04/08/25 NELIA CARLSON FVPRAD During your visit today, we recorded the following information about you: Nelia Carlson, Research Coordinator 04/08/2025 1:45 PM Signed IRB# [id number]: Vascular events in patients undergoing same-day nonCardiac surgery - [facility] PI: Anika Barnes MD, LORENA, NENA. Outcomes Research Department. Anesthesia [place]. [facility]. This is a research study note. Patient [...] Carlson, Research Coordinator Research Fellow Outcomes Research [facility] Allergies As of Date: 04/08/2025 (No Known [...] Encounter Status:Closed by NELIA CARLSON on 04/08/25 [facility] CNOVon 03-31-2025 CNOV [facility] CNPNon 03-18-2025 CNPN [facility] Heart and Vascular Office/Cl inic Noteon 03-10-2025 [...] dated 07/17/2019 no appreciable change is noted. [facility] with Dr. Crowley on 01/02/2019: [...] any h (more content not included)... Normal [facility] Comment on above: Result Comment: Elec tronically Signed By: Casey ESCOBAR, Pato Abraham\.grace\Date and Time Signed: 03/10/25 08:29 EDT Ambulatory [...] next Scheduled Follow-Up Appointments Saturday 8:00 AM EDT With: Casey ESCOBAR, Pato Abraham Where: [facility] You Need to Schedule the Following Appointments Follow Up with RYLEE ARRINGTON, MARCUS Miles When: Comments: 3 yr w/ CHAUNCEY Where: [facility] [address], [place] [id number] You Need to Complete the Following PSA Total, Blood, Routine collect, 02/15/25, Order for future visit, Lab Collect, BPH with urinary obstruction, Required & Missing, Print Label By Order Location XR Abdomen 1 View, 02/15/25, Routine, Order for future visit, Transport Mode: Ambulatory, Reason: Kidney stone, No, Kidney stones, pp_set_radiology_subspe cialty, Not Required, Ceja - [facility] Medications What How Much When Why Instructions New potassium bicarbonate (Effer-K 20 mEq oral tablet, effervescent) 1 Tablets By Mouth 2 times a day Kidney stones Duration: 90 Days Refills: 3 Pickup at [facility] Unchanged finasteride (finasteride 5 mg [...] physician if questions or concerns Pharmacy Information [facility]: [address] [place], [place] [id number] [phone] Allergies No Known Allergies Problems Ongoing - [...] are rock-like (more content not included)... Normal [facility] Urology Office/Clinic Noteon 02-15-2025 Urology Office/Clinic Note [...] URL [facility] [address], [place] [address] [id number] Additional Instructions: 3 yr w/ KUB and PSA Patient Education Kidney Stones, Fxxn-do-Tkii I, Kristan Murrell, personally scribed for Dr. Singleton on 02/15/2025 09:38:26. . Documentation recorded by the scribe, Kristan Murrell, accurately reflects the services(s) I performed and [...] insertion of (more content not included)... Normal [facility] Comment on above: Result Comment: Elec tronically Signed By: Corey SINGLETON MD\.br\Date and Time Signed: 02/15/25 09:39 EDT\.br\Electronically Co-Signed By: Kristan Murrell\.br\Date and Time Co-Signed: 02/15/25 09:38 EDT CBC W Auto Differential pane l (Bld)on 01-11-2025 Basophils (Bld) [#/Vol] 0.06 10*3/uL [facility] Basophils/100 WBC (Bld) 0.9 % [facility] Differential cell count method Nom (Bld) Auto [facility] Eosinophils (Bld) [#/Vol] 0.43 10*3/uL [facility] Eosinophils/100 WBC (Bld) 6.3 % [facility] Erythrocyte distribution width (RBC) [Ratio] 17.6 % High 11.5 - 15.0 % [facility] Hematocrit (Bld) [Volume fraction] 36.8 % Low 39.0 - 51.0 % [facility] Hemoglobin (Bld) [Mass/Vol] 11.6 g/dL Low 13.0 - 17.0 g/dL [facility] Immature granulocytes (Bld) [#/Vol] 0.03 10*3/uL [facility] Immature granulocytes/100 WBC (Bld) 0.4 % [facility] Interpretation and review of laboratory results Abnormal [facility] Lymphocytes (Bld) [#/Vol] 1.39 10*3/uL [facility] Lymphocytes/100 WBC (Bld) 20.3 % [facility] MCH (RBC) [Entitic mass] 28.6 pg 26.0 - 34.0 pg [facility] MCHC (RBC) [Mass/Vol] 31.5 g/dL 30.5 - 36.0 g/dL [facility] MCV (RBC) [Entitic vol] 90.6 fL 80.0 - 100.0 fL [facility] Monocytes (Bld) [#/Vol] 0.62 10*3/uL [facility] Monocytes/100 WBC (Bld) 9 % [facility] Neutrophils (Bld) [#/Vol] 4.33 10*3/uL [facility] Neutrophils/100 WBC (Bld) 63.1 % [facility] Nucleated RBC (Bld) [#/Vol] [facility] Nucleated RBC/100 WBC (Bld) [Ratio] 0 % /100 WBC [facility] Platelet mean volume (Bld) [Entitic vol] 9.9 fL 9.0 - 12.7 fL [facility] Platelets (Bld) [#/Vol] 270 10*3/uL [facility] RBC (Bld) [#/Vol] 4.06 10*6/uL Low 4.20 - 6.0 0 m/uL [facility] WBC (Bld) [#/Vol] 6.86 10*3/uL [facility] Basophils (Bld) [#/Vol] 0.06 10*3/uL Normal <0.11 [facility] Comment on above: Order Comment: Speci men Type: BLOOD SPECIMENOrdering Facility: [facility] Address: [address] [place] [address] Performed By: #### 5 7021-8 ####[facility] LABCLIA [id number] [place] [address] Basophils/100 WBC (Bld) 0.9 % Normal [facility] Comment on above: Order Comment: Speci men Type: BLOOD SPECIMENOrdering Facility: [facility] Address: [address] [place] [address] Performed By: #### 5 7021-8 ####[facility] LABCLIA [id number] [place] [address] Differential cell count method Nom (Bld) Auto Normal [facility] Comment on above: Order Comment: Speci men Type: BLOOD SPECIMENOrdering Facility: [facility] Address: [address] [place] [address] Performed By: #### 5 7021-8 ####[facility] LABCLIA [id number] [place] [address] Eosinophils (Bld) [#/Vol] 0.43 10*3/uL Normal <0.46 [facility] Comment on above: Order Comment: Speci men Type: BLOOD SPECIMENOrdering Facility: [facility] Address: [address] [place] [address] Performed By: #### 5 7021-8 ####[facility] LABCLIA [id number] [place] [address] Eosinophils/100 WBC (Bld) 6.3 % Normal [facility] Comment on above: Order Comment: Speci men Type: BLOOD SPECIMENOrdering Facility: [facility] Address: [address] [place] [address] Performed By: #### 5 7021-8 ####[facility] LABCLIA [id number] [place] [address] Erythrocyte distribution width (RBC) [Ratio] 17.6 % High 11.5-15.0 [facility] Comment on above: Order Comment: Speci men Type: BLOOD SPECIMENOrdering Facility: [facility] Address: [address] [place] [address] Performed By: #### 5 7021-8 ####[facility] LABCLIA [id number] [place] [address] Hematocrit (Bld) [Volume fraction] 36.8 % Low 39.0-51.0 [facility] Comment on above: Order Comment: Speci men Type: BLOOD SPECIMENOrdering Facility: [facility] Address: [address] [place] [address] Performed By: #### 5 7021-8 ####[facility] LABCLIA [id number] [place] [address] Hemoglobin (Bld) [Mass/Vol] 11.6 g/dL Low 13.0-17.0 [facility] Comment on above: Order Comment: Speci men Type: BLOOD SPECIMENOrdering Facility: [facility] Address: [address] [place] [address] Performed By: #### 5 7021-8 ####[facility] LABIA [id number] [place] [address] Immature granulocytes (Bld) [#/Vol] 0.03 10*3/uL Normal <0.10 [facility] Comment on above: Order Comment: Speci men Type: BLOOD SPECIMENOrdering Facility: [facility] Address: [address] [place] [address] Performed By: #### 5 7021-8 ####[facility] LABCLIA [id number] [place] [address] Immature granulocytes/100 WBC (Bld) 0.4 % Normal [facility] Comment on above: Order Comment: Speci men Type: BLOOD SPECIMENOrdering Facility: [facility] Address: [address] [place] [address] Performed By: #### 5 7021-8 ####[facility] LABCLIA [id number] [place] [address] Lymphocytes (Bld) [#/Vol] 1.39 10*3/uL Normal 1.00-4.00 [facility] Comment on above: Order Comment: Speci men Type: BLOOD SPECIMENOrdering Facility: [facility] Address: [address] [place] [address] Performed By: #### 5 7021-8 ####[facility] LABCLIA [id number] [place] [address] Lymphocytes/100 WBC (Bld) 20.3 % Normal [facility] Comment on above: Order Comment: Speci men Type: BLOOD SPECIMENOrdering Facility: [facility] Address: [address] [place] [address] Performed By: #### 5 7021-8 ####[facility] LABCLIA [id number] [place] [address] MCH (RBC) [Entitic mass] 28.6 pg Normal 26.0-34.0 [facility] Comment on above: Order Comment: Speci men Type: BLOOD SPECIMENOrdering Facility: [facility] Address: [address] [place] [address] Performed By: #### 5 7021-8 ####[facility] LABCLIA [id number] [place] [address] MCHC (RBC) [Mass/Vol] 31.5 g/dL Normal 30.5-36.0 [facility] Comment on above: Order Comment: Speci men Type: BLOOD SPECIMENOrdering Facility: [facility] Address: [address] [place] [address] Performed By: #### 5 7021-8 ####[facility] LABCLIA [id number] [place] [address] MCV (RBC) [Entitic vol] 90.6 fL Normal 80.0-100.0 [facility] Comment on above: Order Comment: Speci men Type: BLOOD SPECIMENOrdering Facility: [facility] Address: [address] [place] [address] Performed By: #### 5 7021-8 ####[facility] LABCLIA [id number] [place] [address] Monocytes (Bld) [#/Vol] 0.62 10*3/uL Normal <0.87 [facility] Comment on above: Order Comment: Speci men Type: BLOOD SPECIMENOrdering Facility: [facility] Address: [address] [place] [address] Performed By: #### 5 7021-8 ####[facility] LABCLIA [id number] [place] [address] Monocytes/100 WBC (Bld) 9.0 % Normal [facility] Comment on above: Order Comment: Speci men Type: BLOOD SPECIMENOrdering Facility: [facility] Address: [address] [place] [address] Performed By: #### 5 7021-8 ####[facility] LABCLIA [id number] [place] [address] Neutrophils (Bld) [#/Vol] 4.33 10*3/uL Normal 1.45-7.50 [facility] Comment on above: Order Comment: Speci men Type: BLOOD SPECIMENOrdering Facility: [facility] Address: [address] [place] [address] Performed By: #### 5 7021-8 ####[facility] LABCLIA [id number] [place] [address] Neutrophils/100 WBC (Bld) 63.1 % Normal [facility] Comment on above: Order Comment: Speci men Type: BLOOD SPECIMENOrdering Facility: [facility] Address: [address] [place] [address] Performed By: #### 5 7021-8 ####[facility] LABCLIA [id number] [place] [address] Nucleated RBC (Bld) [#/Vol] 10*3/uL Normal <0.01 [facility] Comment on above: Order Comment: Speci men Type: BLOOD SPECIMENOrdering Facility: [facility] Address: [address] [place] [address] Performed By: #### 5 7021-8 ####[facility] LABCLIA [id number] [place] [address] Nucleated RBC/100 WBC (Bld) [Ratio] 0.0 /100 WBC Normal [facility] Comment on above: Order Comment: Speci men Type: BLOOD SPECIMENOrdering Facility: [facility] Address: [address] [place] [address] Performed By: #### 5 7021-8 ####[facility] LABCLIA [id number] [place] [address] Platelet mean volume (Bld) [Entitic vol] 9.9 fL Normal 9.0-12.7 [facility] Comment on above: Order Comment: Speci men Type: BLOOD SPECIMENOrdering Facility: [facility] Address: [address] [place] [address] Performed By: #### 5 7021-8 ####[facility] LABCLIA [id number] [place] [address] Platelets (Bld) [#/Vol] 270 10*3/uL Normal 150-400 [facility] Comment on above: Order Comment: Speci men Type: BLOOD SPECIMENOrdering Facility: [facility] Address: [address] [place] [address] Performed By: #### 5 7021-8 ####[facility] LABCLIA [id number] [place] [address] RBC (Bld) [#/Vol] 4.06 10*6/uL Low 4.20-6.[address] [facility] Comment on above: Order Comment: Speci men Type: BLOOD SPECIMENOrdering Facility: [facility] Address: [address] [place] [address] Performed By: #### 5 7021-8 ####[facility] LABCLIA [id number] [place] [address] WBC (Bld) [#/Vol] 6.86 10*3/uL Normal 3.70-11.[address] [facility] Comment on above: Order Comment: Speci men Type: BLOOD SPECIMENOrdering Facility: [facility] Address: [address] [place] [address] Performed By: #### 5 7021-8 ####[facility] LABCLIA [id number] [place] [address] CNOVSPon 01-11-2025 CNOVSP Normal [facility] Comprehensive metabolic 2000 panelOrdered By: Ti Dooley on 01-11-2025 Albumin [Mass/Vol] 3.7 g/dL Low 3.9 - 4.9 g/dL [facility] ALP [Catalytic activity/Vol] 110 U/L 38 - 113 U/L [facility] ALT [Catalytic activity/Vol] 7 U/L Low 10 - 54 U/L [facility] Anion gap [Moles/Vol] 9 mmol/L 8 - 15 mmol/L [facility] AST [Catalytic activity/Vol] 10 U/L Low 14 - 40 U/L [facility] Bilirubin [Mass/Vol] 0.3 mg/dL 0.2 - 1 .3 mg/dL [facility] Calcium [Mass/Vol] 8.8 mg/dL 8.5 - 10. 2 mg/dL [facility] Chloride [Moles/Vol] 106 mmol/L 98 - 10 7 mmol/L [facility] CO2 [Moles/Vol] 26 mmol/L 22 - 30 mmol/L [facility] Creatinine [Mass/Vol] 1.15 mg/dL 0.73 - 1.22 mg/dL [facility] GFR/1.73 sq M.predicted among non-blacks MDRD (S/P/Bld) [Vol rate/Area] 68 mL/min/{1.73_m2} - PINF [facility] Comment on above: Estimated Glomerular Filtration Rate [...] [Mass/Vol] 94 mg/dL 74 - 99 mg/dL [facility] Comment on above: The [place] Diabete s Association (ADA) provides guidance for [...] Standards of Medical Care in Diabetes 2016, [place] Diabetes Association. Diabetes Care. 2016.39(Suppl 1). Interpretation and review of laboratory results Abnormal [facility] Potassium [Moles/Vol] 4.1 mmol/L 3.7 - 5.1 mmol/L [facility] Protein [Mass/Vol] 6.2 g/dL Low 6.3 - 8.0 g/dL [facility] Sodium [Moles/Vol] 141 mmol/L 136 - 144 mmol/L [facility] Urea nitrogen [Mass/Vol] 17 mg/dL 9 - 24 mg/dL [facility] Comprehensive metabolic 2000 panelon 01-11-2025 Albumin [Mass/Vol] 3.7 g/dL Low 3.9-4.9 [facility] Comment on above: Order Comment: Speci men Type: BLOOD SPECIMENOrdering Facility: [facility] Address: [facility] [place] [address] Performed By: #### 2 4323-8 ####[facility] LABCLIA [id number] [place] [address] ALP [Catalytic activity/Vol] 110 U/L Normal 38-113 [facility] Comment on above: Order Comment: Speci men Type: BLOOD SPECIMENOrdering Facility: [facility] Address: [address] [place] [address] Performed By: #### 2 4323-8 ####[facility] LABCLIA [id number] [place] [address] ALT [Catalytic activity/Vol] 7 U/L Low 10-54 [facility] Comment on above: Order Comment: Speci men Type: BLOOD SPECIMENOrdering Facility: [facility] Address: [address] [place] [address] Performed By: #### 2 4323-8 ####[facility] LABCLIA [id number] [place] [address] Anion gap [Moles/Vol] 9 mmol/L Normal 8-15 [facility] Comment on above: Order Comment: Speci men Type: BLOOD SPECIMENOrdering Facility: [facility] Address: [address] [place] [address] Performed By: #### 2 4323-8 ####[facility] LABCLIA [id number] [place] [address] AST [Catalytic activity/Vol] 10 U/L Low 14-40 [facility] Comment on above: Order Comment: Speci men Type: BLOOD SPECIMENOrdering Facility: [facility] Address: [address] [place] [address] Performed By: #### 2 4323-8 ####[facility] LABCLIA [id number] [place] [address] Bilirubin [Mass/Vol] 0.3 mg/dL Normal 0.2-1.3 [facility] Comment on above: Order Comment: Speci men Type: BLOOD SPECIMENOrdering Facility: [facility] Address: [address] [place] [address] Performed By: #### 2 4323-8 ####[facility] LABCLIA [id number] [place] [address] Calcium [Mass/Vol] 8.8 mg/dL Normal 8.5-10.2 [facility] Comment on above: Order Comment: Speci men Type: BLOOD SPECIMENOrdering Facility: [facility] Address: [address] [place] [address] Performed By: #### 2 4323-8 ####[facility] LABCLIA [id number] [place] [address] Chloride [Moles/Vol] 106 mmol/L Normal 98-107 [facility] Comment on above: Order Comment: Speci men Type: BLOOD SPECIMENOrdering Facility: [facility] Address: [address] [place] [address] Performed By: #### 2 4323-8 ####[facility] LABCLIA [id number] [place] [address] CO2 [Moles/Vol] 26 mmol/L Normal 22-30 [facility] Comment on above: Order Comment: Speci men Type: BLOOD SPECIMENOrdering Facility: [facility] Address: [address] [place] [address] Performed By: #### 2 4323-8 ####[facility] LABCLIA [id number] [place] [address] Creatinine [Mass/Vol] 1.15 mg/dL Normal 0.73-1.22 [facility] Comment on above: Order Comment: Speci men Type: BLOOD SPECIMENOrdering Facility: [facility] Address: [address] [place] [address] Performed By: #### 2 4323-8 ####[facility] LABCLIA [id number] [place] [address] Creatinine and Glomerular filtration rate.predicted panel (S/P/Bld) 68 mL/min/1.73m??? Normal >=60 [facility] Comment on above: Order Comment: Nazario brooks Type: BLOOD SPECIMENOrdering Facility: [facility] Address: [address] [place] [address] Result Comment: Rebekah mated Glomerular Filtration Rate [...] actual GFR. Performed By: #### 2 4323-8 ####[facility] LABCLIA [id number] [place] [address] Glucose [Mass/Vol] 94 mg/dL Normal 74-99 [facility] Comment on above: Order Comment: Nazario brooks Type: BLOOD SPECIMENOrdering Facility: [facility] Address: [address] [place] [address] Result Comment: The [place] Diabetes Association (ADA) provides guidance for cutoff [...] Standards of Medical Care in Diabetes 2016, [place] Diabetes Association. Diabetes Care. 2016.39(Suppl 1). Performed By: #### 2 4323-8 ####[facility] LABCLIA [id number] [place] [address] Potassium [Moles/Vol] 4.1 mmol/L Normal 3.7-5.1 [facility] Comment on above: Order Comment: Nazario brooks Type: BLOOD SPECIMENOrdering Facility: [facility] Address: [address] [place], [place] [address] Performed By: #### 2 4323-8 ####[facility] LABCLIA [id number] [place] [address] Protein [Mass/Vol] 6.2 g/dL Low 6.3-8.0 [facility] Comment on above: Order Comment: Speci men Type: BLOOD SPECIMENOrdering Facility: [facility] Address: [address] [place] [address] Performed By: #### 2 4323-8 ####[facility] LABCLIA [id number] [place] [address] Sodium [Moles/Vol] 141 mmol/L Normal 136-144 [facility] Comment on above: Order Comment: Speci men Type: BLOOD SPECIMENOrdering Facility: [facility] Address: [address] [place] [address] Performed By: #### 2 4323-8 ####[facility] LABCLIA [id number] [place] [address] Urea nitrogen [Mass/Vol] 17 mg/dL Normal 9-24 [facility] Comment on above: Order Comment: Speci men Type: BLOOD SPECIMENOrdering Facility: [facility] Address: [address] [place] [address] Performed By: #### 2 4323-8 ####[facility] LABIA [id number] [place] [address] ANES POSTPROC EVALon 025 ANES POSTPROC EVAL HNO ID: [id number] Author: MK LEE DO Service: Anesthesiology Author [...] January 04, 2025 TIME: 4:28 PM CSN: [id number] [facility] ANES PRE-OPon 01-04-2025 ANES PRE-OP HNO ID: [id number] Author: MK LEE DO Service: Anesthesiology Author [...] PM CSN: [id number] (more content not included)... [facility] BRIEF OP NOTon 01-04-2025 BRIEF OP NOT HNO ID: [id number] Author: JOANNE JUNG MD Service: Colorectal Author Type: Resident Type: Brief Op Note Filed: 01/04/2025 15:37 Note Text: COLORECTAL SURGERY BRIEF OPERATIVE NOTE Mervat Grayson [phone] LOG ID: [id number] Surgery/Procedure Date: 01/04/2025 Incision/Procedure Start Time: 3:19 PM Incision Close/Procedure End Time: 3:33 PM Surgeon(s)/Proceduralis t(s) and Personnel Generalist Manager(s): Surgeons and Role: * Deborah Norman MD [...] 04, 2025 TIME: 3:36 PM PAGER/CONTACT #: [phone] [facility] HISTORY PHYSICALon HISTORY PHYSICAL HNO ID: [id number] Author: DEBORAH NORMAN MD Service: Colorectal Author [...] Norman MD DATE: 01/04/25 TIME: 12:41 PM [facility] MR Pelvis WO contraston 03- IMPRESSION: DENSE SCAR INVOLVING THE LOW RECTAL [...] WALL WHICH COULD REFLECT A SINUS TRACT. 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SHARON Transcribe Date/Time: Jan 04 2025 8:28A Dictated by : LUIS TOSCANO MD This examination was interpreted and the report reviewed and electronically signed by: LUIS TOSCANO MD on Jan 04 2025 8:46AM [facility] * * *Final Report* * * DATE OF EXAM: Jan 04 2025 8:23AM [facility] 0754 - MRI RECTUM WO/W IVCON / [...] wall which could reflect a sinus tract. [facility] Provider, Ignacio Griggs [facility] - 01/04/2025 * * *Final Report* * [...] WALL WHICH COULD REFLECT A SINUS TRACT. 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[facility] Transcribe Date/Time: Jan 04 2025 8:28A Dictated by : LUIS TOSCANO MD This examination was interpreted and the report reviewed and electronically signed by: LUIS TOSCANO MD on Jan 04 2025 8:46AM EST [facility] Radiology Study observation (narrative) [facility] MR Pelvis WO contrastOrdered By: [facility] Provider on 01-04-2025 [facility] MRI RECTUM WO/W IVCONon 12-19 MRI RECTUM WO/W IVCON * * *Final Report* * * DATE OF EXAM: Jan 04 2025 8:23AM [facility] 0754 - MRI RECTUM WO/W IVCON / [...] WALL WHICH COULD REFLECT A SINUS TRACT. 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[facility] Transcribe Date/Time: Jan 04 2025 8:28A Dictated by : LUIS TOSCANO MD This examination was interpreted and the report reviewed and electronically signed by: LUIS TOSCANO MD on Jan 04 2025 8:46AM EST [id number] [facility] OPERATIVE NOon 01-04-2025 OPERATIVE NO HNO ID: [id number] Author: DEBORAH NORMAN MD Service: Colorectal Author Type: Physician Type: Operative Report Filed: 01/05/2025 09:48 Note Text: COLON AND RECTAL SURGERY OPERATIVE REPORT PATIENT NAME: Mervat Grayson ADMISSION DATE: 01/04/2025 LOG ID: [id number] SURGERY/PROCEDURE DATE: 01/04/2025 INCISION/PROCEDURE START TIME: 3:19 PM INCISION CLOSE/PROCEDURE END TIME: 3:33 PM AGE: [age] year old SEX: male SURGEON(S)/PROCEDURALIS T(S) AND BROKER AGRICULTURAL PRODUCE(S): Surgeons and Role: * Deborah Norman MD [...] Surgery Division of Colon and Rectal Surgery [facility] Pathology biopsy report Jose Manuel (Tiss)on 01-04-2025 AP DISCLAIMER [facility] Comment on above: Order Comment: Speci men Type: TISSUE SPECIMENOrdering Facility: [facility] Address: [address] [place] [address] Result Comment: Keshav medrano Developed Test (LDT) Disclaimer: Performance characteristics of immunohistochemical, immunofluorescent, and chromogenic in-situ hybridization tests have been determined by the performing laboratory within [facility] Pathology and Laboratory Medicine Department ([facility], [facility], [facility], [facility], [facility], or [facility]) in a manner consistent with CLIA requirements. One or more of these tests may not have been cleared or approved by the FDA. [facility] is regulated under CLIA as qualified to perform high-complexity testing. These tests are used for clinical purposes. These should not be regarded as investigational or for research. Positive and negative controls stain appropriately. Performed By: #### 6 6121-5 ####[facility] LABCLIA [id number] [address] LABORATORYCLIA [id number] [place] [address] [place] CASE REPORT Normal [facility] Comment on above: Order Comment: Speci men Type: TISSUE SPECIMENOrdering Facility: [facility] Address: [address] [place] [address] Result Comment: Surg ica Pathology Report Case: [id number] Authorizing Provider: Deborah Norman MD Collected: 01/04/2025 03:20 PM Ordering Location: [facility] Received: 01/04/2025 05:20 PM Operating Room Pathologist: Viola Barbosa MD Specimen: Abscess (Specify site in comment), abdominal wall abscess cavity Performed By: #### 6 6121-5 ####[facility] LABCLIA [id number] [address] [address] [facility] LABORATORYCLIA [id number] [place] [address] [place] CLINICAL HISTORY Normal [facility] Comment on above: Order Comment: Speci men Type: TISSUE SPECIMENOrdering Facility: [facility] Address: [address] [place] [address] Result Comment: Pre- op diagnosis: Abdominal wall abscess [L02.211] Performed By: #### 6 6121-5 ####[facility] LABCLIA [id number] [address] [address] [facility]ORATORYCLIA [id number] [place] [id number] [facility] FINAL DIAGNOSIS Normal [facility] Comment on above: Order Comment: Speci men Type: TISSUE SPECIMENOrdering Facility: [facility] Address: [address] [place] [address] Result Comment: A. S oft tissue, abdominal wall, excision: - Abscess. at 1123 EDT Performed By: #### 6 6121-5 ####[facility] LABCLIA [id number] [address] [place] [address] [facility]ORATORYCLIA [id number] [address] STATES OF [facility] FINAL PERFORMING LAB Normal [facility] Comment on above: Order Comment: Speci men Type: TISSUE SPECIMENOrdering Facility: [facility] Address: [address] [place] [address] Result Comment: Diag nostic interpretation performed at: [facility], [address] [address] CLIA# [id number] Electronic Components Assembler: Pineda Conti MD Performed By: #### 6 6121-5 ####[facility] LABCLIA [id number] [address] LABORATORYCLIA [id number] [address] STATES [facility] GROSS DESCRIPTION Normal [facility] Comment on above: Order Comment: Speci men Type: TISSUE SPECIMENOrdering Facility: [facility] Address: [address] [place] [address] Result Comment: A. A bscess (Specify site in comment) Received in formalin designated abdominal wall abscess cavity are multiple segments of santos-pink soft tissue and fibrofatty tissue which aggregate to 5.8 x 4 x 1 cm. Focal areas of fibrosis and necrosis are present. Juvenile Counselor sections are submitted in 1 cassette. BF January 05, 2025 9:26 AM Gross examination performed at [facility], [address] [place] [address] Performed By: #### 6 6121-5 ####[facility] LABCLIA [id number] [address] LABORATORYCLIA [id number] [address] OF [place] Yaron 01-01-2025 BARBARA Telephone (RGFV) MERVAT GRAYSON ([id number]) 1950 M Date Time Provider Department 01/01/25 MONTY SPIVEY RGFV During your visit today, we recorded the [...] Encounter Status:Closed by MONTY SPIVEY on 01/01/25 Normal [facility] CNPNon 12-31-2024 CNPN Normal [facility] CNPNon 12-29-2024 CNPN Normal [facility] CNOVon 12-28-2024 CNOV Normal [facility] CNPNon 12-25-2024 CNPN Normal [facility] CBC W Auto Differential pane l (Bld)on 12-24-2024 Basophils (Bld) [#/Vol] 0.06 10*3/uL [facility] Basophils/100 WBC (Bld) 0.7 % [facility] Differential cell count method Nom (Bld) Auto [facility] Eosinophils (Bld) [#/Vol] 0.25 10*3/uL [facility] Eosinophils/100 WBC (Bld) 2.8 % [facility] Erythrocyte distribution width (RBC) [Ratio] 16.6 % High 11.5 - 15.0 % [facility] Hematocrit (Bld) [Volume fraction] 36.6 % Low 39.0 - 51.0 % [facility] Hemoglobin (Bld) [Mass/Vol] 11.8 g/dL Low 13.0 - 17.0 g/dL [facility] Immature granulocytes (Bld) [#/Vol] 0.03 10*3/uL [facility] Immature granulocytes/100 WBC (Bld) 0.3 % [facility] Interpretation and review of laboratory results Abnormal [facility] Lymphocytes (Bld) [#/Vol] 0.85 10*3/uL Low [facility] Lymphocytes/100 WBC (Bld) 9.6 % [facility] MCH (RBC) [Entitic mass] 28.9 pg 26.0 - 34.0 pg [facility] MCHC (RBC) [Mass/Vol] 32.2 g/dL 30.5 - 36.0 g/dL [facility] MCV (RBC) [Entitic vol] 89.5 fL 80.0 - 100.0 fL [facility] Monocytes (Bld) [#/Vol] 0.66 10*3/uL NINF [facility] Monocytes/100 WBC (Bld) 7.5 % [facility] Neutrophils (Bld) [#/Vol] 7 10*3/uL [facility] Neutrophils/100 WBC (Bld) 79.1 % [facility] Nucleated RBC (Bld) [#/Vol] NINF [facility] Nucleated RBC/100 WBC (Bld) [Ratio] 0 % /100 WBC [facility] Platelet mean volume (Bld) [Entitic vol] 9.7 fL 9.0 - 12.7 fL [facility] Platelets (Bld) [#/Vol] 272 10*3/uL [facility] RBC (Bld) [#/Vol] 4.09 10*6/uL Low 4.20 - 6.0 0 m/uL [facility] WBC (Bld) [#/Vol] 8.85 10*3/uL [facility] Basophils (Bld) [#/Vol] 0.06 10*3/uL Normal <0.11 [facility] Comment on above: Order Comment: Speci men Type: BLOOD SPECIMENOrdering Facility: [facility] Address: [address] [place] [address] Performed By: #### 5 7021-8 ####[facility] LABCLIA [id number] [place] [address] Basophils/100 WBC (Bld) 0.7 % Normal [facility] Comment on above: Order Comment: Speci men Type: BLOOD SPECIMENOrdering Facility: [facility] Address: [address] [place] [address] Performed By: #### 5 7021-8 ####[facility] LABCLIA [id number] [place] [address] Differential cell count method Nom (Bld) Auto Normal [facility] Comment on above: Order Comment: Speci men Type: BLOOD SPECIMENOrdering Facility: [facility] Address: [address] [place] [address] Performed By: #### 5 7021-8 ####[facility] LABCLIA [id number] [place] [address] Eosinophils (Bld) [#/Vol] 0.25 10*3/uL Normal <0.46 [facility] Comment on above: Order Comment: Speci men Type: BLOOD SPECIMENOrdering Facility: [facility] Address: [address] [place] [address] Performed By: #### 5 7021-8 ####[facility] LABCLIA [id number] [place] [address] Eosinophils/100 WBC (Bld) 2.8 % Normal [facility] Comment on above: Order Comment: Speci men Type: BLOOD SPECIMENOrdering Facility: [facility] Address: [address] [place] [address] Performed By: #### 5 7021-8 ####[facility] LABCLIA [id number] [place] [address] Erythrocyte distribution width (RBC) [Ratio] 16.6 % High 11.5-15.0 [facility] Comment on above: Order Comment: Speci men Type: BLOOD SPECIMENOrdering Facility: [facility] Address: [address] [place] [address] Performed By: #### 5 7021-8 ####[facility] LABCLIA [id number] [place] [address] Hematocrit (Bld) [Volume fraction] 36.6 % Low 39.0-51.0 [facility] Comment on above: Order Comment: Speci men Type: BLOOD SPECIMENOrdering Facility: [facility] Address: [address] [place] [address] Performed By: #### 5 7021-8 ####[facility] LABCLIA [id number] [place] [address] Hemoglobin (Bld) [Mass/Vol] 11.8 g/dL Low 13.0-17.0 [facility] Comment on above: Order Comment: Speci men Type: BLOOD SPECIMENOrdering Facility: [facility] Address: [address] [place] [address] Performed By: #### 5 7021-8 ####[facility] LABCLIA [id number] [place] [address] Immature granulocytes (Bld) [#/Vol] 0.03 10*3/uL Normal <0.10 [facility] Comment on above: Order Comment: Speci men Type: BLOOD SPECIMENOrdering Facility: [facility] Address: [address] [place] [address] Performed By: #### 5 7021-8 ####[facility] LABIA [id number] [place] [address] Immature granulocytes/100 WBC (Bld) 0.3 % Normal [facility] Comment on above: Order Comment: Speci men Type: BLOOD SPECIMENOrdering Facility: [facility] Address: [address] [place] [address] Performed By: #### 5 7021-8 ####[facility] LABIA [id number] [place] [address] Lymphocytes (Bld) [#/Vol] 0.85 10*3/uL Low 1.00-4.00 [facility] Comment on above: Order Comment: Speci men Type: BLOOD SPECIMENOrdering Facility: [facility] Address: [address] [place] [address] Performed By: #### 5 7021-8 ####[facility] LABCLIA [id number] [place] [address] Lymphocytes/100 WBC (Bld) 9.6 % Normal [facility] Comment on above: Order Comment: Speci men Type: BLOOD SPECIMENOrdering Facility: [facility] Address: [address] [place] [address] Performed By: #### 5 7021-8 ####[facility] LABIA [id number] [place] [address] MCH (RBC) [Entitic mass] 28.9 pg Normal 26.0-34.0 [facility] Comment on above: Order Comment: Speci men Type: BLOOD SPECIMENOrdering Facility: [facility] Address: [address] [place] [address] Performed By: #### 5 7021-8 ####[facility] LABCLIA [id number] [place] [address] MCHC (RBC) [Mass/Vol] 32.2 g/dL Normal 30.5-36.0 [facility] Comment on above: Order Comment: Speci men Type: BLOOD SPECIMENOrdering Facility: [facility] Address: [address] [place] [address] Performed By: #### 5 7021-8 ####[facility] LABIA [id number] [place] [address] MCV (RBC) [Entitic vol] 89.5 fL Normal 80.0-100.0 [facility] Comment on above: Order Comment: Speci men Type: BLOOD SPECIMENOrdering Facility: [facility] Address: [address] [place] [address] Performed By: #### 5 7021-8 ####[facility] LABIA [id number] [place] [address] Monocytes (Bld) [#/Vol] 0.66 10*3/uL Normal <0.87 [facility] Comment on above: Order Comment: Speci men Type: BLOOD SPECIMENOrdering Facility: [facility] Address: [address] [place] [address] Performed By: #### 5 7021-8 ####[facility] LABCLIA [id number] [place] [address] Monocytes/100 WBC (Bld) 7.5 % Normal [facility] Comment on above: Order Comment: Speci men Type: BLOOD SPECIMENOrdering Facility: [facility] Address: [address] [place] [address] Performed By: #### 5 7021-8 ####[facility] LABCLIA [id number] [place] [address] Neutrophils (Bld) [#/Vol] 7.00 10*3/uL Normal 1.45-7.50 [facility] Comment on above: Order Comment: Speci men Type: BLOOD SPECIMENOrdering Facility: [facility] Address: [address] [place] [address] Performed By: #### 5 7021-8 ####[facility] LABCLIA [id number] [place] [address] Neutrophils/100 WBC (Bld) 79.1 % Normal [facility] Comment on above: Order Comment: Speci men Type: BLOOD SPECIMENOrdering Facility: [facility] Address: [address] [place] [address] Performed By: #### 5 7021-8 ####[facility] LABCLIA [id number] [place] [address] Nucleated RBC (Bld) [#/Vol] 10*3/uL Normal <0.01 [facility] Comment on above: Order Comment: Speci men Type: BLOOD SPECIMENOrdering Facility: [facility] Address: [address] [place] [address] Performed By: #### 5 7021-8 ####[facility] LABCLIA [id number] [place] [address] Nucleated RBC/100 WBC (Bld) [Ratio] 0.0 /100 WBC Normal [facility] Comment on above: Order Comment: Speci men Type: BLOOD SPECIMENOrdering Facility: [facility] Address: [address] [place] [address] Performed By: #### 5 7021-8 ####[facility] LABIA [id number] [place] [address] Platelet mean volume (Bld) [Entitic vol] 9.7 fL Normal 9.0-12.7 [facility] Comment on above: Order Comment: Speci men Type: BLOOD SPECIMENOrdering Facility: [facility] Address: [address] [place] [address] Performed By: #### 5 7021-8 ####[facility] LABCLIA [id number] [place] [address] Platelets (Bld) [#/Vol] 272 10*3/uL Normal 150-400 [facility] Comment on above: Order Comment: Speci men Type: BLOOD SPECIMENOrdering Facility: [facility] Address: [address] [place] [address] Performed By: #### 5 7021-8 ####[facility] LABCLIA [id number] [place] [address] RBC (Bld) [#/Vol] 4.09 10*6/uL Low 4.20-6.[address] [facility] Comment on above: Order Comment: Speci men Type: BLOOD SPECIMENOrdering Facility: [facility] Address: [address] [place] [address] Performed By: #### 5 7021-8 ####[facility] LABIA [id number] [place] [address] WBC (Bld) [#/Vol] 8.85 10*3/uL Normal 3.70-11.[address] [facility] Comment on above: Order Comment: Speci men Type: BLOOD SPECIMENOrdering Facility: [facility] Address: [address] [place] [address] Performed By: #### 5 7021-8 ####[facility] LABCLIA [id number] [place] [address] CEA SerPl-ncon 12-24-2024 Carcinoembryonic Ag [Mass/Vol] 1.4 ng/mL Normal <=2.9 [facility] Comment on above: Order Comment: Speci men Type: BLOOD SPECIMENOrdering Facility: [facility] Address: [address] [place] [address] Result Comment: Carc inoembryonic antigen test is [...] used interchangeably. Performed By: #### 2 039-6 ####[facility] LABCLIA [id number] [place] [address] [place] CNPNon 12-24-2024 CNPN Normal [facility] CT ABD/PEL W IVCONon 025 CT ABD/PEL W IVCON Normal [facility] CT Abdomen and Pelvis W cont rast [...] any questions regarding this interpretation, please call [phone]. If you are unable to reach us at the number above, please feel free to contact [facility] eRadiology at [phone]. DIVISION OF RADIOLOGY * * *Final Report* * * DATE OF EXAM: Dec 24 2024 11:12AM [facility] 0530 - CT ABD/PEL W [...] No additional findings. DIVISION OF RADIOLOGY Provider, [facility] - 12/24/2024 * * *Final Report* * * DATE OF EXAM: Dec 24 2024 11:12AM [facility] 0530 - CT ABD/PEL W [...] any questions regarding this interpretation, please call [phone]. If you are unable to reach us at the number above, please feel free to contact [facility] eRadiology at [phone]. [facility] CT CHEST W IVCONon CT CHEST W IVCON Normal Abigail ortiz [facility] CT Chest W contrast Ivelisse [...] any questions regarding this interpretation, please call [phone]. If you are unable to reach us at the number above, please feel free to [facility] at [phone]. DIVISION OF RADIOLOGY * * *Final Report* * * DATE OF EXAM: Dec 24 2024 11:12AM [facility] 0539 - CT CHEST W [...] No additional findings. DIVISION OF RADIOLOGY Provider, [facility] - 12/24/2024 * * *Final Report* * * DATE OF EXAM: Dec 24 2024 11:12AM [facility] 0539 - CT CHEST W [...] any questions regarding this interpretation, please call [phone]. If you are unable to reach us at the number above, please feel free to contact [facility] eRadiology at [phone]. [facility] Comprehensive metabolic 2000 panelOrdered By: Toshia Stokes on 12-24-2024 Albumin [Mass/Vol] 3.8 g/dL Low 3.9 - 4.9 g/dL [facility] ALP [Catalytic activity/Vol] 105 U/L 38 - 113 U/L [facility] ALT [Catalytic activity/Vol] 6 U/L Low 10 - 54 U/L [facility] Anion gap [Moles/Vol] 10 mmol/L 8 - 15 mmol/L [facility] AST [Catalytic activity/Vol] 10 U/L Low 14 - 40 U/L [facility] Bilirubin [Mass/Vol] 0.6 mg/dL 0.2 - 1 .3 mg/dL [facility] Calcium [Mass/Vol] 9.1 mg/dL 8.5 - 10. 2 mg/dL [facility] Chloride [Moles/Vol] 107 mmol/L 98 - 10 7 mmol/L [facility] CO2 [Moles/Vol] 26 mmol/L 22 - 30 mmol/L [facility] Creatinine [Mass/Vol] 1.03 mg/dL 0.73 - 1.22 mg/dL [facility] GFR/1.73 sq M.predicted among non-blacks MDRD (S/P/Bld) [Vol rate/Area] 77 mL/min/{1.73_m2} - PINF [facility] Comment on above: Estimated Glomerular Filtration Rate [...] [Mass/Vol] 87 mg/dL 74 - 99 mg/dL [facility] Comment on above: The [place] Diabete s Association (ADA) provides guidance for [...] Standards of Medical Care in Diabetes 2016, [place] Diabetes Association. Diabetes Care. 2016.39(Suppl 1). Interpretation and review of laboratory results Abnormal [facility] Potassium [Moles/Vol] 4.2 mmol/L 3.7 - 5.1 mmol/L [facility] Protein [Mass/Vol] 6.5 g/dL 6.3 - 8.0 g/dL [facility] Sodium [Moles/Vol] 143 mmol/L 136 - 144 mmol/L [facility] Urea nitrogen [Mass/Vol] 16 mg/dL 9 - 24 mg/dL [facility] Comprehensive metabolic 2000 panelon 12-24-2024 Albumin [Mass/Vol] 3.8 g/dL Low 3.9-4.9 [facility] Comment on above: Order Comment: Speci men Type: BLOOD SPECIMENOrdering Facility: [facility] Address: [address] [place] [address] Performed By: #### 2 4323-8 ####[facility] LABCLIA [id number] [place] [address] ALP [Catalytic activity/Vol] 105 U/L Normal 38-113 [facility] Comment on above: Order Comment: Speci men Type: BLOOD SPECIMENOrdering Facility: [facility] Address: [address] [place] [address] Performed By: #### 2 4323-8 ####[facility] LABCLIA [id number] [place] [address] ALT [Catalytic activity/Vol] 6 U/L Low 10-54 [facility] Comment on above: Order Comment: Speci men Type: BLOOD SPECIMENOrdering Facility: [facility] Address: [address] [place] [address] Performed By: #### 2 4323-8 ####[facility] LABCLIA [id number] [place] [address] Anion gap [Moles/Vol] 10 mmol/L Normal 8-15 [facility] Comment on above: Order Comment: Speci men Type: BLOOD SPECIMENOrdering Facility: [facility] Address: [address] [place] [address] Performed By: #### 2 4323-8 ####[facility] LABCLIA [id number] [place] [address] AST [Catalytic activity/Vol] 10 U/L Low 14-40 [facility] Comment on above: Order Comment: Speci men Type: BLOOD SPECIMENOrdering Facility: [facility] Address: [address] [place] [address] Performed By: #### 2 4323-8 ####[facility] LABCLIA [id number] [place] [address] Bilirubin [Mass/Vol] 0.6 mg/dL Normal 0.2-1.3 [facility] Comment on above: Order Comment: Speci men Type: BLOOD SPECIMENOrdering Facility: [facility] Address: [address] [place], [place] [address] Performed By: #### 2 4323-8 ####[facility] LABCLIA [id number] [place] [address] Calcium [Mass/Vol] 9.1 mg/dL Normal 8.5-10.2 [facility] Comment on above: Order Comment: Speci men Type: BLOOD SPECIMENOrdering Facility: [facility] Address: [address] [place], [place] [address] Performed By: #### 2 4323-8 ####[facility] LABCLIA [id number] [place] [address] Chloride [Moles/Vol] 107 mmol/L Normal 98-107 [facility] Comment on above: Order Comment: Speci men Type: BLOOD SPECIMENOrdering Facility: [facility] Address: [address] [place] [address] Performed By: #### 2 4323-8 ####[facility] LABCLIA [id number] [place] [address] CO2 [Moles/Vol] 26 mmol/L Normal 22-30 [facility] Comment on above: Order Comment: Speci men Type: BLOOD SPECIMENOrdering Facility: [facility] Address: [address] [place] [address] Performed By: #### 2 4323-8 ####[facility] LABCLIA [id number] [place] [address] Creatinine [Mass/Vol] 1.03 mg/dL Normal 0.73-1.22 [facility] Comment on above: Order Comment: Speci men Type: BLOOD SPECIMENOrdering Facility: [facility] [facility] Address: [address] [place], [place] [address] Performed By: #### 2 4323-8 ####[facility] LABCLIA [id number] [place] [address] Creatinine and Glomerular filtration rate.predicted panel (S/P/Bld) 77 mL/min/1.73m??? Normal >=60 [facility] Comment on above: Order Comment: Nazario brooks Type: BLOOD SPECIMENOrdering Facility: [facility] Address: [address] [place] [address] Result Comment: Rebekah mated Glomerular Filtration Rate [...] actual GFR. Performed By: #### 2 4323-8 ####[facility] LABCLIA [id number] [place] [address] Glucose [Mass/Vol] 87 mg/dL Normal 74-99 [facility] Comment on above: Order Comment: Nazario brooks Type: BLOOD SPECIMENOrdering Facility: [facility] Address: [address] [place] [address] Result Comment: The [place] Diabetes Association (ADA) provides guidance for cutoff [...] Standards of Medical Care in Diabetes 2016, [place] Diabetes Association. Diabetes Care. 2016.39(Suppl 1). Performed By: #### 2 4323-8 ####[facility] LABCLIA [id number] [place] [address] Potassium [Moles/Vol] 4.2 mmol/L Normal 3.7-5.1 [facility] Comment on above: Order Comment: Speci men Type: BLOOD SPECIMENOrdering Facility: [facility] Address: [address] [place] [address] Performed By: #### 2 4323-8 ####[facility] LABCLIA [id number] [place] [address] Protein [Mass/Vol] 6.5 g/dL Normal 6.3-8.0 [facility] Comment on above: Order Comment: Speci men Type: BLOOD SPECIMENOrdering Facility: [facility] Address: [address] [place] [address] Performed By: #### 2 4323-8 ####[facility] LABCLIA [id number] [place] [address] Sodium [Moles/Vol] 143 mmol/L Normal 136-144 [facility] Comment on above: Order Comment: Speci men Type: BLOOD SPECIMENOrdering Facility: [facility] Address: [address] [place] [address] Performed By: #### 2 4323-8 ####[facility] LABCLIA [id number] [place] [address] Urea nitrogen [Mass/Vol] 16 mg/dL Normal 9-24 [facility] Comment on above: Order Comment: Speci men Type: BLOOD SPECIMENOrdering Facility: [facility] Address: [address] [place] [address] Performed By: #### 2 4323-8 ####[facility] LABCLIA [id number] [place] [address] No Panel InformationOrdered By: Ccf Provider on 12-24-2024 [facility] No Panel Informationon 12-24 Radiology Study observation (narrative) [facility] US ABDOMEN COMPLETEon 2024 US ABDOMEN COMPLETE EXAMINATION: COMPLETE ABDOMINAL ULTRASOUND 12/17/2024 9:01 am COMPARISON: None. HISTORY: ORDERING SYSTEM PROVIDED HISTORY: Right lower quadrant abdominal pain TECHNOLOGIST PROVIDED HISTORY: This procedure can be scheduled via Vastrmhart. What reading provider will be dictating this [...] Ranulfo Arauz MD 12/17/24 Final result Normal [facility] US Abdomenon 12-17-2024 1. Cholelithiasis. 2. Mild bilateral hydronephrosis. 3. Small bowel containing hernia in the right lower quadrant. [facility] EXAMINATION: COMPLETE ABDOMINAL ULTRASOUND 12/17/2024 9:01 [...] 1.6 cm. The neck measures 0.6 cm [facility] Ranulfo Arauz MD - 12/17/2024 EXAMINATION: COMPLETE ABDOMINAL ULTRASOUND 12/17/2024 9:01 am COMPARISON: None. HISTORY: ORDERING SYSTEM PROVIDED HISTORY: Right lower quadrant abdominal pain TECHNOLOGIST PROVIDED HISTORY: This procedure can be scheduled via Vastrmhart. What reading provider will be dictating this [...] containing hernia in the right lower quadrant. [facility] Radiology Study observation (narrative) [facility] US AbdomenOrdered By: Ranulfo Arauz on 12-17-2024 [facility] Work Phone: CBC W Auto Differential pane l (Bld)on 12-07-2024 Basophils (Bld) [#/Vol] 0.07 10*3/uL [facility] Basophils/100 WBC (Bld) 0.9 % [facility] Differential cell count method Nom (Bld) Auto [facility] Eosinophils (Bld) [#/Vol] 0.29 10*3/uL [facility] Eosinophils/100 WBC (Bld) 3.6 % [facility] Erythrocyte distribution width (RBC) [Ratio] 15.5 % High 11.5 - 15.0 % [facility] Hematocrit (Bld) [Volume fraction] 34.7 % Low 39.0 - 51.0 % [facility] Hemoglobin (Bld) [Mass/Vol] 11.1 g/dL Low 13.0 - 17.0 g/dL [facility] Immature granulocytes (Bld) [#/Vol] 0.04 10*3/uL [facility] Immature granulocytes/100 WBC (Bld) 0.5 % [facility] Interpretation and review of laboratory results Abnormal [facility] Lymphocytes (Bld) [#/Vol] 1.13 10*3/uL [facility] Lymphocytes/100 WBC (Bld) 13.8 % [facility] MCH (RBC) [Entitic mass] 29.1 pg 26.0 - 34.0 pg [facility] MCHC (RBC) [Mass/Vol] 32 g/dL 30.5 - 36.0 g/dL [facility] MCV (RBC) [Entitic vol] 90.8 fL 80.0 - 100.0 fL [facility] Monocytes (Bld) [#/Vol] 0.62 10*3/uL [facility] Monocytes/100 WBC (Bld) 7.6 % [facility] Neutrophils (Bld) [#/Vol] 6.01 10*3/uL [facility] Neutrophils/100 WBC (Bld) 73.6 % [facility] Nucleated RBC (Bld) [#/Vol] NINF [facility] Nucleated RBC/100 WBC (Bld) [Ratio] 0 % /100 WBC [facility] Platelet mean volume (Bld) [Entitic vol] 9.5 fL 9.0 - 12.7 fL [facility] Platelets (Bld) [#/Vol] 345 10*3/uL [facility] RBC (Bld) [#/Vol] 3.82 10*6/uL Low 4.20 - 6.0 0 m/uL [facility] WBC (Bld) [#/Vol] 8.16 10*3/uL [facility] Basophils (Bld) [#/Vol] 0.07 10*3/uL Normal <0.11 [facility] Comment on above: Order Comment: Speci men Type: BLOOD SPECIMENOrdering Facility: [facility] Address: [address] [place] [address] Performed By: #### 5 7021-8 ####[facility] LABCLIA [id number] [place] [address] Basophils/100 WBC (Bld) 0.9 % Normal [facility] Comment on above: Order Comment: Speci men Type: BLOOD SPECIMENOrdering Facility: [facility] Address: [address] [place] [address] Performed By: #### 5 7021-8 ####[facility] LABCLIA [id number] [place] [address] Differential cell count method Nom (Bld) Auto Normal [facility] Comment on above: Order Comment: Speci men Type: BLOOD SPECIMENOrdering Facility: [facility] Address: [address] [place] [address] Performed By: #### 5 7021-8 ####[facility] LABCLIA [id number] [place] [address] Eosinophils (Bld) [#/Vol] 0.29 10*3/uL Normal <0.46 [facility] Comment on above: Order Comment: Speci men Type: BLOOD SPECIMENOrdering Facility: [facility] Address: [address] [place] [address] Performed By: #### 5 7021-8 ####[facility] LABCLIA [id number] [place] [address] Eosinophils/100 WBC (Bld) 3.6 % Normal [facility] Comment on above: Order Comment: Speci men Type: BLOOD SPECIMENOrdering Facility: [facility] Address: [address] [place] [address] Performed By: #### 5 7021-8 ####[facility] LABCLIA [id number] [place] [address] Erythrocyte distribution width (RBC) [Ratio] 15.5 % High 11.5-15.0 [facility] Comment on above: Order Comment: Speci men Type: BLOOD SPECIMENOrdering Facility: [facility] Address: [address] [place] [address] Performed By: #### 5 7021-8 ####[facility] LABCLIA [id number] [place] [address] Hematocrit (Bld) [Volume fraction] 34.7 % Low 39.0-51.0 [facility] Comment on above: Order Comment: Speci men Type: BLOOD SPECIMENOrdering Facility: [facility] Address: [address] [place] [address] Performed By: #### 5 7021-8 ####[facility] LABCLIA [id number] [place] [address] Hemoglobin (Bld) [Mass/Vol] 11.1 g/dL Low 13.0-17.0 [facility] Comment on above: Order Comment: Speci men Type: BLOOD SPECIMENOrdering Facility: [facility] Address: [address] [place] [address] Performed By: #### 5 7021-8 ####[facility] LABCLIA [id number] [place] [address] Immature granulocytes (Bld) [#/Vol] 0.04 10*3/uL Normal <0.10 [facility] Comment on above: Order Comment: Speci men Type: BLOOD SPECIMENOrdering Facility: [facility] Address: [address] [place] [address] Performed By: #### 5 7021-8 ####[facility] LABCLIA [id number] [place] [address] Immature granulocytes/100 WBC (Bld) 0.5 % Normal [facility] Comment on above: Order Comment: Speci men Type: BLOOD SPECIMENOrdering Facility: [facility] Address: [address] [place] [address] Performed By: #### 5 7021-8 ####[facility] LABCLIA [id number] [place] [address] Lymphocytes (Bld) [#/Vol] 1.13 10*3/uL Normal 1.00-4.00 [facility] Comment on above: Order Comment: Speci men Type: BLOOD SPECIMENOrdering Facility: [facility] Address: [address] [place] [address] Performed By: #### 5 7021-8 ####[facility] LABCLIA [id number] [place] [address] Lymphocytes/100 WBC (Bld) 13.8 % Normal [facility] Comment on above: Order Comment: Speci men Type: BLOOD SPECIMENOrdering Facility: [facility] Address: [address] [place] [address] Performed By: #### 5 7021-8 ####[facility] LABCLIA [id number] [place] [address] MCH (RBC) [Entitic mass] 29.1 pg Normal 26.0-34.0 [facility] Comment on above: Order Comment: Speci men Type: BLOOD SPECIMENOrdering Facility: [facility] Address: [address] [place] [address] Performed By: #### 5 7021-8 ####[facility] LABCLIA [id number] [place] [address] MCHC (RBC) [Mass/Vol] 32.0 g/dL Normal 30.5-36.0 [facility] Comment on above: Order Comment: Speci men Type: BLOOD SPECIMENOrdering Facility: [facility] Address: [address] [place] [address] Performed By: #### 5 7021-8 ####[facility] LABCLIA [id number] [place] [address] MCV (RBC) [Entitic vol] 90.8 fL Normal 80.0-100.0 [facility] Comment on above: Order Comment: Speci men Type: BLOOD SPECIMENOrdering Facility: [facility] Address: [address] [place] [address] Performed By: #### 5 7021-8 ####[facility] LABIA [id number] [place] [address] Monocytes (Bld) [#/Vol] 0.62 10*3/uL Normal <0.87 [facility] Comment on above: Order Comment: Speci men Type: BLOOD SPECIMENOrdering Facility: [facility] Address: [address] [place] [address] Performed By: #### 5 7021-8 ####[facility] LABCLIA [id number] [place] [address] Monocytes/100 WBC (Bld) 7.6 % Normal [facility] Comment on above: Order Comment: Speci men Type: BLOOD SPECIMENOrdering Facility: [facility] Address: [address] [place] [address] Performed By: #### 5 7021-8 ####[facility] LABCLIA [id number] [place] [address] Neutrophils (Bld) [#/Vol] 6.01 10*3/uL Normal 1.45-7.50 [facility] Comment on above: Order Comment: Speci men Type: BLOOD SPECIMENOrdering Facility: [facility] Address: [address] [place] [address] Performed By: #### 5 7021-8 ####[facility] LABCLIA [id number] [place] [address] Neutrophils/100 WBC (Bld) 73.6 % Normal [facility] Comment on above: Order Comment: Speci men Type: BLOOD SPECIMENOrdering Facility: [facility] Address: [address] [place] [address] Performed By: #### 5 7021-8 ####[facility] LABCLIA [id number] [place] [address] Nucleated RBC (Bld) [#/Vol] 10*3/uL Normal <0.01 [facility] Comment on above: Order Comment: Speci men Type: BLOOD SPECIMENOrdering Facility: [facility] Address: [address] [place] [address] Performed By: #### 5 7021-8 ####[facility] LABCLIA [id number] [place] [address] Nucleated RBC/100 WBC (Bld) [Ratio] 0.0 /100 WBC Normal [facility] Comment on above: Order Comment: Speci men Type: BLOOD SPECIMENOrdering Facility: [facility] Address: [address] [place] [address] Performed By: #### 5 7021-8 ####[facility] LABCLIA [id number] [place] [address] Platelet mean volume (Bld) [Entitic vol] 9.5 fL Normal 9.0-12.7 [facility] Comment on above: Order Comment: Speci men Type: BLOOD SPECIMENOrdering Facility: [facility] Address: [address] [place] [address] Performed By: #### 5 7021-8 ####[facility] LABCLIA [id number] [place] [address] Platelets (Bld) [#/Vol] 345 10*3/uL Normal 150-400 [facility] Comment on above: Order Comment: Speci men Type: BLOOD SPECIMENOrdering Facility: [facility] Address: [address] [place] [address] Performed By: #### 5 7021-8 ####[facility] LABIA [id number] [place] [address] RBC (Bld) [#/Vol] 3.82 10*6/uL Low 4.20-6.[address] [facility] Comment on above: Order Comment: Speci men Type: BLOOD SPECIMENOrdering Facility: [facility] Address: [address] [place] [address] Performed By: #### 5 7021-8 ####[facility] LABIA [id number] [place] [address] WBC (Bld) [#/Vol] 8.16 10*3/uL Normal 3.70-11.[address] [facility] Comment on above: Order Comment: Speci men Type: BLOOD SPECIMENOrdering Facility: [facility] Address: [address] [place] [address] Performed By: #### 5 7021-8 ####[facility] LABCLIA [id number] [place] [address] CNOVSPon 12-07-2024 CNOVSP Normal [facility] metabolic 2000 panelOrdered By: Toshia Stokes on 12-07-2024 Albumin [Mass/Vol] 3.6 g/dL Low 3.9 - 4.9 g/dL [facility] ALP [Catalytic activity/Vol] 96 U/L 38 - 113 U/L [facility] ALT [Catalytic activity/Vol] 5 U/L Low 10 - 54 U/L [facility] Anion gap [Moles/Vol] 11 mmol/L 8 - 15 mmol/L [facility] AST [Catalytic activity/Vol] 8 U/L Low 14 - 40 U/L [facility] Bilirubin [Mass/Vol] 0.3 mg/dL 0.2 - 1 .3 mg/dL [facility] Calcium [Mass/Vol] 9.2 mg/dL 8.5 - 10. 2 mg/dL [facility] Chloride [Moles/Vol] 104 mmol/L 98 - 10 7 mmol/L [facility] CO2 [Moles/Vol] 25 mmol/L 22 - 30 mmol/L [facility] Creatinine [Mass/Vol] 1.04 mg/dL 0.73 - 1.22 mg/dL [facility] GFR/1.73 sq M.predicted among non-blacks MDRD (S/P/Bld) [Vol rate/Area] 76 mL/min/{1.73_m2} - PINF [facility] Comment on above: Estimated Glomerular Filtration Rate [...] 132 mg/dL High 74 - 99 mg/dL [facility] Comment on above: The [place] Diab[employer] s Association (ADA) provides guidance for [...] Standards of Medical Care in Diabetes 2016, [place] Diabetes Association. Diabetes Care. 2016.39(Suppl 1). Interpretation and review of laboratory results Abnormal [facility] Potassium [Moles/Vol] 3.7 mmol/L 3.7 - 5.1 mmol/L [facility] Protein [Mass/Vol] 5.9 g/dL Low 6.3 - 8.0 g/dL [facility] Sodium [Moles/Vol] 140 mmol/L 136 - 144 mmol/L [facility] Urea nitrogen [Mass/Vol] 17 mg/dL 9 - 24 mg/dL [facility] Comprehensive metabolic 2000 panelon 12-07-2024 Albumin [Mass/Vol] 3.6 g/dL Low 3.9-4.9 [facility] Comment on above: Order Comment: Speci men Type: BLOOD SPECIMENOrdering Facility: [facility] Address: [address] [place] [address] Performed By: #### 2 4323-8 ####[facility] LABCLIA [id number] [place] [address] ALP [Catalytic activity/Vol] 96 U/L Normal 38-113 [facility] Comment on above: Order Comment: Speci men Type: BLOOD SPECIMENOrdering Facility: [facility] Address: [address] [place] [address] Performed By: #### 2 4323-8 ####[facility] LABCLIA [id number] [place] [address] ALT [Catalytic activity/Vol] 5 U/L Low 10-54 [facility] Comment on above: Order Comment: Speci men Type: BLOOD SPECIMENOrdering Facility: [facility] Address: [address] [place] [id number] Performed By: #### 2 4323-8 ####[facility] LABCLIA [id number] [place] [address] Anion gap [Moles/Vol] 11 mmol/L Normal 8-15 [facility] Comment on above: Order Comment: Speci men Type: BLOOD SPECIMENOrdering Facility: [facility] Address: [address] [place] [address] Performed By: #### 2 4323-8 ####[facility] LABCLIA [id number] [place] [address] AST [Catalytic activity/Vol] 8 U/L Low 14-40 [facility] Comment on above: Order Comment: Speci men Type: BLOOD SPECIMENOrdering Facility: [facility] Address: [address] [place] [address] Performed By: #### 2 4323-8 ####[facility] LABCLIA [id number] [place] [address] Bilirubin [Mass/Vol] 0.3 mg/dL Normal 0.2-1.3 [facility] Comment on above: Order Comment: Speci men Type: BLOOD SPECIMENOrdering Facility: [facility] Address: [address] [place] [address] Performed By: #### 2 4323-8 ####[facility] LABCLIA [id number] [place] [address] Calcium [Mass/Vol] 9.2 mg/dL Normal 8.5-10.2 [facility] Comment on above: Order Comment: Speci men Type: BLOOD SPECIMENOrdering Facility: [facility] Address: [address] [place] [address] Performed By: #### 2 4323-8 ####[facility] LABCLIA [id number] [place] [address] Chloride [Moles/Vol] 104 mmol/L Normal 98-107 [facility] Comment on above: Order Comment: Speci men Type: BLOOD SPECIMENOrdering Facility: [facility] Address: [address] [place] [address] Performed By: #### 2 4323-8 ####[facility] LABCLIA [id number] [place] [address] CO2 [Moles/Vol] 25 mmol/L Normal 22-30 [facility] Comment on above: Order Comment: Speci men Type: BLOOD SPECIMENOrdering Facility: [facility] Address: [address] [place] [address] Performed By: #### 2 4323-8 ####[facility] LABCLIA [id number] [place] [address] Creatinine [Mass/Vol] 1.04 mg/dL Normal 0.73-1.22 [facility] Comment on above: Order Comment: Speci men Type: BLOOD SPECIMENOrdering Facility: [facility] Address: [address] [place] [address] Performed By: #### 2 4323-8 ####[facility] LABCLIA [id number] [place] [address] Creatinine and Glomerular filtration rate.predicted panel (S/P/Bld) 76 mL/min/1.73m??? Normal >=60 [facility] Comment on above: Order Comment: Speci men Type: BLOOD SPECIMENOrdering Facility: [facility] Address: [address] [place] [address] Result Comment: Rebekah mated Glomerular Filtration Rate [...] actual GFR. Performed By: #### 2 4323-8 ####[facility] LABCLIA [id number] [place] [address] Glucose [Mass/Vol] 132 mg/dL High 74-99 [facility] Comment on above: Order Comment: Speci men Type: BLOOD SPECIMENOrdering Facility: [facility] Address: [address] [place], [place] [address] Result Comment: The [place] Diabetes Association (ADA) provides guidance for cutoff [...] Standards of Medical Care in Diabetes 2016, [place] Diabetes Association. Diabetes Care. 2016.39(Suppl 1). Performed By: #### 2 4323-8 ####[facility] LABCLIA [id number] [place] [address] Potassium [Moles/Vol] 3.7 mmol/L Normal 3.7-5.1 [facility] Comment on above: Order Comment: Speci men Type: BLOOD SPECIMENOrdering Facility: [facility] Address: [address] [place] [address] Performed By: #### 2 4323-8 ####[facility] LABCLIA [id number] [place] [address] Protein [Mass/Vol] 5.9 g/dL Low 6.3-8.0 [facility] Comment on above: Order Comment: Speci men Type: BLOOD SPECIMENOrdering Facility: [facility] Address: [address] [place], [place] [address] Performed By: #### 2 4323-8 ####[facility] LABCLIA [id number] [place] [address] Sodium [Moles/Vol] 140 mmol/L Normal 136-144 [facility] Comment on above: Order Comment: Speci men Type: BLOOD SPECIMENOrdering Facility: [facility] Address: [address] [place] [address] Performed By: #### 2 4323-8 ####[facility] LABCLIA [id number] [place] [address] Urea nitrogen [Mass/Vol] 17 mg/dL Normal 9-24 [facility] Comment on above: Order Comment: Speci men Type: BLOOD SPECIMENOrdering Facility: [facility] Address: [address] [place] [address] Performed By: #### 2 4323-8 ####[facility] LABCLIA [id number] [place] [address] CEA SerPl-mCncon 11-25-2024 Carcinoembryonic Ag [Mass/Vol] 1.4 ng/mL Normal <=2.9 [facility] Comment on above: Order Comment: Speci men Type: BLOOD SPECIMENOrdering Facility: [facility] Address: [address] [place] [address] Result Comment: Carc inoembryonic antigen test is used as an aid in monitoring response to treatment or recurrence in patients with established colorectal, breast, lung, prostatic, pancreatic, and ovarian carcinomas. Clinical correlation is required.The Carcinoembryonic antigen test was performed using the [employer] DXI paramagnetic particle chemiluminescent immunoassay method. Results obtained with different assay methods or kits cannot be used interchangeably. Performed By: #### 2 039-6 ####[facility] LABCLIA [id number] [place] [address] [place] CREATININE BLDon 11-25-2024 Creatinine [Mass/Vol] 1.01 mg/dL Normal 0.73-1.22 [facility] Comment on above: Order Comment: Speci men Type: BLOOD SPECIMENOrdering Facility: [facility] Address: [address] [place] [address] Performed By: #### C RET1 ####[facility] LABCLIA [id number] [address] [id number] [address] [place] Creatinine and Glomerular filtration rate.predicted panel (S/P/Bld) 79 mL/min/1.73m??? Normal >=60 [facility] Comment on above: Order Comment: Speci men Type: BLOOD SPECIMENOrdering Facility: [facility] Address: [address] [place] [address] Result Comment: Rebekah mated Glomerular Filtration Rate [...] actual GFR. Performed By: #### C RET1 ####[facility] LABCLIA [id number] [address] [place] ANES POSTPROC EVALon 025 ANES POSTPROC EVAL HNO ID: [id number] Author: BRAD VILLEDA MD Service: Anesthesiology Author [...] November 24, 2024 TIME: 12:54 PM CSN: [id number] [place] [facility]-OPon 11-24-2024 ANES PRE-OP HNO ID: [id number] Author: BRAD VILLEDA MD Service: Anesthesiology Author [...] with infarction (HCC) Oncology (+) Rectal cancer (HCC) Other [...] November 24, 2024 TIME: 11:30 AM CSN: [id number] Normal [facility] Flexible Sigmoidoscopyon Flexible sigmoidoscopy [facility] Gastrointestinal Endoscopy Patient Name: Mervat Grayson Procedure Date: 11/24/2024 11:45 AM Date of : 1950 Admit Type: Outpatient Age: 74 Room: [place] [address] Gender: Male Note Status: Finalized Attending MD: Deborah Norman MD, [id number] Procedure: Flexible Sigmoidoscopy Indications: High risk colon [...] for surveillance. Procedure Code(s): --- Professional --- 12256, 52, Sigmoidoscopy, flexible; diagnostic, including collection of specimen(s) by brushing or washing, when performed (separate procedure) CPT copyright 2020 [employer]. All rights reserved. The codes documented in this report are preliminary and upon presser machine review may be revised to meet current compliance requirements. Attending Participation: I personally performed the entire procedure. Scope In: 11:55:49 AM Scope Out: 11:57:46 AM MD Deborah Harper MD 11/24/2024 12:02:18 PM This report has been signed electronically by Deborah Norman MD Number of Addenda: 0 Note Initiated On: 11/24/2024 11:45 AM Estimated Blood Loss: Estimated blood loss: none. Normal [facility] Flexible sigmoidoscopy study on 11-24-2024 [facility] Gastrointestinal Endoscopy Patient Name: Mervat Grayson Procedure Date: 11/24/2024 11:45 AM Date of : 1950 Admit Type: Outpatient Age: 74 Room: [place] [address] Gender: Male Note Status: Finalized Attending MD: Deborah Norman MD, [id number] Procedure: Flexible Sigmoidoscopy Indications: High risk colon [...] for surveillance. Procedure Code(s): --- Professional --- 33827, 52, Sigmoidoscopy, flexible; diagnostic, including collection of specimen(s) by brushing or washing, when performed (separate procedure) CPT copyright 2020 [employer]. All rights reserved. The codes documented in this report are preliminary and upon presser machine review may be revised to meet current compliance requirements. Attending Participation: I personally performed the entire procedure. Scope In: 11:55:49 AM Scope Out: 11:57:46 AM MD Deborah Harper MD 11/24/2024 12:02:18 PM This report has been signed electronically by Deborah Norman MD Number of Addenda: 0 Note Initiated On: 11/24/2024 11:45 AM Estimated Blood Loss: Estimated blood loss: none. PROVATION [facility] Radiology Study observation (narrative) [facility] HISTORY PHYSICALon HISTORY PHYSICAL HNO ID: [id number] Author: DEBORAH NORMAN MD Service: Colorectal Author [...] ENDOSCOPY HISTORY AND PHYSICAL EXAM Mervat Grayson [id number] Subjective HPI: This is a 74 year [...] Minerva Artis MD 11/24/2024 11:51 AM Normal [facility] CBC W Auto Differential pane l (Bld)on 11-10-2024 Basophils (Bld) [#/Vol] 0.07 10*3/uL [facility] Basophils/100 WBC (Bld) 0.8 % [facility] Differential cell count method Nom (Bld) Auto [facility] Eosinophils (Bld) [#/Vol] 0.27 10*3/uL [facility] Eosinophils/100 WBC (Bld) 3.1 % [facility] Erythrocyte distribution width (RBC) [Ratio] 15.9 % High 11.5 - 15.0 % [facility] Hematocrit (Bld) [Volume fraction] 35.3 % Low 39.0 - 51.0 % [facility] Hemoglobin (Bld) [Mass/Vol] 11.2 g/dL Low 13.0 - 17.0 g/dL [facility] Immature granulocytes (Bld) [#/Vol] 0.03 10*3/uL [facility] Immature granulocytes/100 WBC (Bld) 0.3 % [facility] Interpretation and review of laboratory results Abnormal [facility] Lymphocytes (Bld) [#/Vol] 0.94 10*3/uL Low [facility] Lymphocytes/100 WBC (Bld) 10.8 % [facility] MCH (RBC) [Entitic mass] 29.2 pg 26.0 - 34.0 pg [facility] MCHC (RBC) [Mass/Vol] 31.7 g/dL 30.5 - 36.0 g/dL [facility] MCV (RBC) [Entitic vol] 91.9 fL 80.0 - 100.0 fL [facility] Monocytes (Bld) [#/Vol] 0.79 10*3/uL NINF [facility] Monocytes/100 WBC (Bld) 9.0 % [facility] Monocytes/100 WBC (Bld) 9 % [facility] Neutrophils (Bld) [#/Vol] 6.64 10*3/uL [facility] Neutrophils/100 WBC (Bld) 76.0 % [facility] Neutrophils/100 WBC (Bld) 76 % [facility] Nucleated RBC (Bld) [#/Vol] NINF [facility] Nucleated RBC/100 WBC (Bld) [Ratio] 0.0 % /100 WBC [facility] Nucleated RBC/100 WBC (Bld) [Ratio] 0 % /100 WBC [facility] Platelet mean volume (Bld) [Entitic vol] 9.4 fL 9.0 - 12.7 fL [facility] Platelets (Bld) [#/Vol] 263 10*3/uL [facility] RBC (Bld) [#/Vol] 3.84 10*6/uL Low 4.20 - 6.0 0 m/uL [facility] WBC (Bld) [#/Vol] 8.74 10*3/uL [facility] Basophils (Bld) [#/Vol] 0.07 10*3/uL Normal <0.11 [facility] Comment on above: Order Comment: Speci men Type: BLOOD SPECIMENOrdering Facility: [facility] Address: [address] [place] [address] Performed By: #### 5 7021-8 ####[facility] LABCLIA [id number] [place] [address] Basophils/100 WBC (Bld) 0.8 % Normal [facility] Comment on above: Order Comment: Speci men Type: BLOOD SPECIMENOrdering Facility: [facility] Address: [address] [place] [address] Performed By: #### 5 7021-8 ####[facility] LABCLIA [id number] [place] [address] Differential cell count method Nom (Bld) Auto Normal [facility] Comment on above: Order Comment: Speci men Type: BLOOD SPECIMENOrdering Facility: [facility] Address: [address] [place] [address] Performed By: #### 5 7021-8 ####[facility] LABCLIA [id number] [place] [address] Eosinophils (Bld) [#/Vol] 0.27 10*3/uL Normal <0.46 [facility] Comment on above: Order Comment: Speci men Type: BLOOD SPECIMENOrdering Facility: [facility] Address: [address] [place] [address] Performed By: #### 5 7021-8 ####[facility] LABCLIA [id number] [place] [address] Eosinophils/100 WBC (Bld) 3.1 % Normal [facility] Comment on above: Order Comment: Speci men Type: BLOOD SPECIMENOrdering Facility: [facility] Address: [address] [place] [address] Performed By: #### 5 7021-8 ####[facility] LABCLIA [id number] [place] [address] Erythrocyte distribution width (RBC) [Ratio] 15.9 % High 11.5-15.0 [facility] Comment on above: Order Comment: Speci men Type: BLOOD SPECIMENOrdering Facility: [facility] Address: [address] [place] [address] Performed By: #### 5 7021-8 ####[facility] LABCLIA [id number] [place] [address] Hematocrit (Bld) [Volume fraction] 35.3 % Low 39.0-51.0 [facility] Comment on above: Order Comment: Speci men Type: BLOOD SPECIMENOrdering Facility: [facility] Address: [address] [place] [address] Performed By: #### 5 7021-8 ####[facility] LABCLIA [id number] [place] [address] Hemoglobin (Bld) [Mass/Vol] 11.2 g/dL Low 13.0-17.0 [facility] Comment on above: Order Comment: Speci men Type: BLOOD SPECIMENOrdering Facility: [facility] Address: [address] [place] [address] Performed By: #### 5 7021-8 ####[facility] LABCLIA [id number] [place] [address] Immature granulocytes (Bld) [#/Vol] 0.03 10*3/uL Normal <0.10 [facility] Comment on above: Order Comment: Speci men Type: BLOOD SPECIMENOrdering Facility: [facility] Address: [address] [place] [address] Performed By: #### 5 7021-8 ####[facility] LABCLIA [id number] [place] [address] Immature granulocytes/100 WBC (Bld) 0.3 % Normal [facility] Comment on above: Order Comment: Speci men Type: BLOOD SPECIMENOrdering Facility: [facility] Address: [address] [place] [address] Performed By: #### 5 7021-8 ####[facility] LABCLIA [id number] [place] [address] Lymphocytes (Bld) [#/Vol] 0.94 10*3/uL Low 1.00-4.00 [facility] Comment on above: Order Comment: Speci men Type: BLOOD SPECIMENOrdering Facility: [facility] Address: [address] [place] [address] Performed By: #### 5 7021-8 ####[facility] LABCLIA [id number] [place] [address] Lymphocytes/100 WBC (Bld) 10.8 % Normal [facility] Comment on above: Order Comment: Speci men Type: BLOOD SPECIMENOrdering Facility: [facility] Address: [address] [place] [address] Performed By: #### 5 7021-8 ####[facility] LABCLIA [id number] [place] [address] MCH (RBC) [Entitic mass] 29.2 pg Normal 26.0-34.0 [facility] Comment on above: Order Comment: Speci men Type: BLOOD SPECIMENOrdering Facility: [facility] Address: [address] [place] [address] Performed By: #### 5 7021-8 ####[facility] LABCLIA [id number] [place] [address] MCHC (RBC) [Mass/Vol] 31.7 g/dL Normal 30.5-36.0 [facility] Comment on above: Order Comment: Speci men Type: BLOOD SPECIMENOrdering Facility: [facility] Address: [address] [place] [address] Performed By: #### 5 7021-8 ####[facility] LABCLIA [id number] [place] [address] MCV (RBC) [Entitic vol] 91.9 fL Normal 80.0-100.0 [facility] Comment on above: Order Comment: Speci men Type: BLOOD SPECIMENOrdering Facility: [facility] Address: [address] [place] [address] Performed By: #### 5 7021-8 ####[facility] LABIA [id number] [place] [address] Monocytes (Bld) [#/Vol] 0.79 10*3/uL Normal <0.87 [facility] Comment on above: Order Comment: Speci men Type: BLOOD SPECIMENOrdering Facility: [facility] Address: [address] [place] [address] Performed By: #### 5 7021-8 ####[facility] LABCLIA [id number] [place] [address] Monocytes/100 WBC (Bld) 9.0 % Normal [facility] Comment on above: Order Comment: Speci men Type: BLOOD SPECIMENOrdering Facility: [facility] Address: [address] [place] [address] Performed By: #### 5 7021-8 ####[facility] LABCLIA [id number] [place] [address] Neutrophils (Bld) [#/Vol] 6.64 10*3/uL Normal 1.45-7.50 [facility] Comment on above: Order Comment: Speci men Type: BLOOD SPECIMENOrdering Facility: [facility] Address: [address] [place] [address] Performed By: #### 5 7021-8 ####[facility] LABCLIA [id number] [place] [address] Neutrophils/100 WBC (Bld) 76.0 % Normal [facility] Comment on above: Order Comment: Speci men Type: BLOOD SPECIMENOrdering Facility: [facility] Address: [address] [place] [address] Performed By: #### 5 7021-8 ####[facility] LABCLIA [id number] [place] [address] Nucleated RBC (Bld) [#/Vol] 10*3/uL Normal <0.01 [facility] Comment on above: Order Comment: Speci men Type: BLOOD SPECIMENOrdering Facility: [facility] Address: [address] [place] [address] Performed By: #### 5 7021-8 ####[facility] LABCLIA [id number] [place] [address] Nucleated RBC/100 WBC (Bld) [Ratio] 0.0 /100 WBC Normal [facility] Comment on above: Order Comment: Speci men Type: BLOOD SPECIMENOrdering Facility: [facility] Address: [address] [place] [address] Performed By: #### 5 7021-8 ####[facility] LABCLIA [id number] [place] [address] Platelet mean volume (Bld) [Entitic vol] 9.4 fL Normal 9.0-12.7 [facility] Comment on above: Order Comment: Speci men Type: BLOOD SPECIMENOrdering Facility: [facility] Address: [address] [place] [address] Performed By: #### 5 7021-8 ####[facility] LABCLIA [id number] [place] [address] Platelets (Bld) [#/Vol] 263 10*3/uL Normal 150-400 [facility] Comment on above: Order Comment: Speci men Type: BLOOD SPECIMENOrdering Facility: [facility] Address: [address] [place] [address] Performed By: #### 5 7021-8 ####[facility] LABCLIA [id number] [place] [address] RBC (Bld) [#/Vol] 3.84 10*6/uL Low 4.20-6.[address] [facility] Comment on above: Order Comment: Speci men Type: BLOOD SPECIMENOrdering Facility: [facility] Address: [address] [place] [address] Performed By: #### 5 7021-8 ####[facility] LABCLIA [id number] [place] [address] WBC (Bld) [#/Vol] 8.74 10*3/uL Normal 3.70-11.[address] [facility] Comment on above: Order Comment: Speci men Type: BLOOD SPECIMENOrdering Facility: [facility] Address: [address] [place] [address] Performed By: #### 5 7021-8 ####[facility] LABCLIA [id number] [place] [address] CNOVSPon 11-10-2024 CNOVSP Normal [facility] CNPNon 11-10-2024 CNPN Normal [facility] CT ABDOMEN W IVCONon 025 CT ABDOMEN W IVCON Normal [facility] CT Abdomen W contrast Ivelisse 0 11-10-2024 * * *Final Report* * * DATE OF EXAM: Nov 10 2024 11:56AM [facility] 0533 - CT ABDOMEN W IVCON [...] No additional findings. DIVISION OF RADIOLOGY Provider, Karen Indu Andreina - 11/10/2024 * * *Final Report* * * DATE OF EXAM: Nov 10 2024 11:56AM [facility] 0533 - CT ABDOMEN W IVCON [...] any questions regarding this interpretation, please call [phone]. If you are unable to reach us at the number above, please feel free to contact [facility] eRadiology at [phone]. [facility] CT PELVIS W IVCONon 11-10-19 CT PELVIS W IVCON Normal [facility] CT Pelvis W contrast Ivelisse * * *Final Report* * * DATE OF EXAM: Nov 10 2024 11:56AM [facility] 0555 - CT PELVIS W IVCON [...] No additional findings. DIVISION OF RADIOLOGY Provider, [facility] - 11/10/2024 * * *Final Report* * * DATE OF EXAM: Nov 10 2024 11:56AM [facility] 0555 - CT PELVIS W IVCON [...] any questions regarding this interpretation, please call [phone]. If you are unable to reach us at the number above, please feel free to contact [facility] eRadiology at [phone]. [facility] Comprehensive metabolic 2000 panelOrdered By: Ti Dooley on 11-10-2024 Albumin [Mass/Vol] 3.5 g/dL Low 3.9 - 4.9 g/dL [facility] ALP [Catalytic activity/Vol] 94 U/L 38 - 113 U/L [facility] ALT [Catalytic activity/Vol] 6 U/L Low 10 - 54 U/L [facility] Anion gap [Moles/Vol] 5 mmol/L Low 8 - 15 mmol/L [facility] AST [Catalytic activity/Vol] 8 U/L Low 14 - 40 U/L [facility] Bilirubin [Mass/Vol] 0.4 mg/dL 0.2 - 1 .3 mg/dL [facility] Calcium [Mass/Vol] 9.0 mg/dL 8.5 - 10. 2 mg/dL [facility] Calcium [Mass/Vol] 9 mg/dL 8.5 - 10. 2 mg/dL [facility] Chloride [Moles/Vol] 109 mmol/L High 98 - 10 7 mmol/L [facility] CO2 [Moles/Vol] 27 mmol/L 22 - 30 mmol/L [facility] Creatinine [Mass/Vol] 1.04 mg/dL 0.73 - 1.22 mg/dL [facility] GFR/1.73 sq M.predicted among non-blacks MDRD (S/P/Bld) [Vol rate/Area] 76 mL/min/{1.73_m2} - PINF [facility] Comment on above: Estimated Glomerular Filtration Rate [...] [Mass/Vol] 88 mg/dL 74 - 99 mg/dL [facility] Comment on above: The [employer] (ADA) provides guidance for [...] Standards of Medical Care in Diabetes 2016, [employer]. Diabetes Care. 2016.39(Suppl 1). Interpretation and review of laboratory results Abnormal [facility] Potassium [Moles/Vol] 3.9 mmol/L 3.7 - 5.1 mmol/L [facility] Protein [Mass/Vol] 6.1 g/dL Low 6.3 - 8.0 g/dL [facility] Sodium [Moles/Vol] 141 mmol/L 136 - 144 mmol/L [facility] Urea nitrogen [Mass/Vol] 15 mg/dL 9 - 24 mg/dL [facility] Comprehensive metabolic 2000 panelon 11-10-2024 Albumin [Mass/Vol] 3.5 g/dL Low 3.9-4.9 [facility] Comment on above: Order Comment: Speci men Type: BLOOD SPECIMENOrdering Facility: [facility] Address: [address] [place] [address] Performed By: #### 2 4323-8 ####[facility] LABCLIA [id number] [place] [address] ALP [Catalytic activity/Vol] 94 U/L Normal 38-113 [facility] Comment on above: Order Comment: Speci men Type: BLOOD SPECIMENOrdering Facility: [facility] Address: [address] [place] [address] Performed By: #### 2 4323-8 ####[facility] LABCLIA [id number] [place] [address] ALT [Catalytic activity/Vol] 6 U/L Low 10-54 [facility] Comment on above: Order Comment: Speci men Type: BLOOD SPECIMENOrdering Facility: [facility] Address: [address] [place] [address] Performed By: #### 2 4323-8 ####[facility] LABCLIA [id number] [place] [address] Anion gap [Moles/Vol] 5 mmol/L Low 8-15 [facility] Comment on above: Order Comment: Speci men Type: BLOOD SPECIMENOrdering Facility: [facility] Address: [address] [place] [address] Performed By: #### 2 4323-8 ####[facility] LABCLIA [id number] [place] [address] AST [Catalytic activity/Vol] 8 U/L Low 14-40 [facility] Comment on above: Order Comment: Speci men Type: BLOOD SPECIMENOrdering Facility: [facility] Address: [address] [place] [address] Performed By: #### 2 4323-8 ####[facility] LABCLIA [id number] [place] [address] Bilirubin [Mass/Vol] 0.4 mg/dL Normal 0.2-1.3 [facility] Comment on above: Order Comment: Speci men Type: BLOOD SPECIMENOrdering Facility: [facility] Address: [address] [place] [address] Performed By: #### 2 4323-8 ####[facility] LABCLIA [id number] [place] [address] Calcium [Mass/Vol] 9.0 mg/dL Normal 8.5-10.2 [facility] Comment on above: Order Comment: Speci men Type: BLOOD SPECIMENOrdering Facility: [facility] Address: [address] [place] [address] Performed By: #### 2 4323-8 ####[facility] LABCLIA [id number] [place] [address] Chloride [Moles/Vol] 109 mmol/L High 98-107 [facility] Comment on above: Order Comment: Speci men Type: BLOOD SPECIMENOrdering Facility: [facility] Address: [address] [place] [address] Performed By: #### 2 4323-8 ####[facility] LABCLIA [id number] [place] [address] CO2 [Moles/Vol] 27 mmol/L Normal 22-30 [facility] Comment on above: Order Comment: Speci men Type: BLOOD SPECIMENOrdering Facility: [facility] Address: [address] [place] [address] Performed By: #### 2 4323-8 ####[facility] LABCLIA [id number] [place] [address] Creatinine [Mass/Vol] 1.04 mg/dL Normal 0.73-1.22 [facility] Comment on above: Order Comment: Speci men Type: BLOOD SPECIMENOrdering Facility: [facility] Address: [address] [place], [place] [address] Performed By: #### 2 4323-8 ####[facility] LABCLIA [id number] [place] [address] Creatinine and Glomerular filtration rate.predicted panel (S/P/Bld) 76 mL/min/1.73m??? Normal >=60 [facility] Comment on above: Order Comment: Nazario brooks Type: BLOOD SPECIMENOrdering Facility: [facility] Address: [address] [place] [address] Result Comment: Rebekah mated Glomerular Filtration Rate [...] actual GFR. Performed By: #### 2 4323-8 ####[facility] LABCLIA [id number] [place] [address] Glucose [Mass/Vol] 88 mg/dL Normal 74-99 [facility] Comment on above: Order Comment: Nazario brooks Type: BLOOD SPECIMENOrdering Facility: [facility] Address: [address] [place] [address] Result Comment: The [employer] (ADA) provides guidance for cutoff [...] Standards of Medical Care in Diabetes 2016, [employer]. Diabetes Care. 2016.39(Suppl 1). Performed By: #### 2 4323-8 ####[facility] LABCLIA [id number] [place] [address] Potassium [Moles/Vol] 3.9 mmol/L Normal 3.7-5.1 [facility] Comment on above: Order Comment: Speci men Type: BLOOD SPECIMENOrdering Facility: [facility] Address: [address] [place] [address] Performed By: #### 2 4323-8 ####[facility] LABCLIA [id number] [place] [address] Protein [Mass/Vol] 6.1 g/dL Low 6.3-8.0 [facility] Comment on above: Order Comment: Speci men Type: BLOOD SPECIMENOrdering Facility: [facility] Address: [address] [place] [address] Performed By: #### 2 4323-8 ####[facility] LABCLIA [id number] [place] [address] Sodium [Moles/Vol] 141 mmol/L Normal 136-144 [facility] Comment on above: Order Comment: Speci men Type: BLOOD SPECIMENOrdering Facility: [facility] Address: [address] [place] [address] Performed By: #### 2 4323-8 ####[facility] LABCLIA [id number] [place] [address] Urea nitrogen [Mass/Vol] 15 mg/dL Normal 9-24 [facility] Comment on above: Order Comment: Speci men Type: BLOOD SPECIMENOrdering Facility: [facility] Address: [address] [place] [address] Performed By: #### 2 4323-8 ####[facility] LABCLIA [id number] [place] [address] No Panel Informationon 11-10 IMPRESSION: 1. Persistent [...] any questions regarding this interpretation, please call [phone]. If you are unable to reach us at the number above, please feel free to contact [facility] eRadiology at [phone]. DIVISION OF RADIOLOGY Radiology Study observation (narrative) [facility] No Panel InformationOrdered By: Ccf Provider on 11-10-2024 [facility] CNPNon 11-05-2024 CNPN Normal [facility] CNPNon 10-23-2024 CNPN Normal [facility] C. diff by PCRon 10-20-2024 Clostridium difficile by PCR Negative Normal Negative [facility] Comment on above: Order Comment: Order added by Discern Expert. Result Comment: This test result should be correlated with clinical presentations and medical history by a healthcare provider to determine its clinical significance. Performed By: #### 4 [id number] #### [facility] [address] [facility] [place] [address] CDiff PCRon 10-20-2024 C. difficile toxin A+B Ql (Stl) No, PCR to follow Normal [facility] Comment on above: Performed By: #### 3 [id number] #### [facility] [address] [facility] [place] [address] [facility] 10-19-2024 CNPN Normal [facility] BMPon 09-27-2024 Anion gap [Moles/Vol] 10 mmol/L Normal 6-16 [facility] Comment on above: Performed By: #### 2 [id number] #### [facility] [address] [place] [address] Calcium [Mass/Vol] 8.5 mg/dL Low 8.9-11.1 [facility] Comment on above: Performed By: #### 2 [id number] #### [facility] [address] [facility] [place] [address] Chloride [Moles/Vol] 108 mmol/L Normal 101-111 [facility] Comment on above: Performed By: #### 2 807078 #### [facility] [address] [place] [address] CO2 [Moles/Vol] 27 mmol/L Normal 21-31 [facility] Comment on above: Performed By: #### 2 987536 #### [facility] [address] [place] [address] Creatinine [Mass/Vol] 1.0 mg/dL Normal 0.5-1.3 [facility] Comment on above: Performed By: #### 2 391791 #### [facility] [address] [place] [address] Glucose [Mass/Vol] 86 mg/dL Normal 55-199 [facility] Comment on above: Performed By: #### 2 950817 #### [facility] [address] [place] [address] Potassium [Moles/Vol] 3.6 mmol/L Normal 3.5-5.3 [facility] Comment on above: Performed By: #### 2 991839 #### [facility] [address] [place] [address] Sodium [Moles/Vol] 141 mmol/L Normal 135-145 [facility] Comment on above: Performed By: #### 2 568781 #### [facility] [address] [place] [address] Urea nitrogen [Mass/Vol] 14 mg/dL Normal 5-21 [facility] Comment on above: Performed By: #### 2 014481 #### [facility] [address] [place] [address] Urea nitrogen/Creatinine [Mass ratio] 14 No Units Normal 10-20 [facility] Comment on above: Performed By: #### 2 [id number] #### [facility] [address] [place] [address] CBC w/ Auto Diffon 4 Basophils/100 WBC (Bld) 1.7 % Normal 0.0-2.0 [facility] Comment on above: Performed By: #### 2 796258 #### [facility] [address] [place] [address] Basophils/Leukocytes Auto (Bld) [Pure # fraction] 0.1 E9/L Normal 0.0-0.2 [facility] Comment on above: Performed By: #### 2 437066 #### [facility] [address] [place] [address] Eosinophils (Bld) [#/Vol] 0.3 E9/L Normal 0.0-0.5 [facility] Comment on above: Performed By: #### 2 747944 #### [facility] [address] [place] [address] Eosinophils/100 WBC (Bld) 4.9 % Normal 0.0-8.0 [facility] Comment on above: Performed By: #### 2 934316 #### [facility] [address] [place] [address] Erythrocyte distribution width (RBC) [Ratio] 18.1 % High 10.9-14.2 [facility] Comment on above: Performed By: #### 2 236703 #### [facility] [address] [place] [address] Hematocrit (Bld) [Volume fraction] 34.8 % Low 37.7-49.0 [facility] Comment on above: Performed By: #### 2 510991 #### [facility] [address] [place] [address] Hemoglobin (Bld) [Mass/Vol] 11.5 g/dL Low 13.5-17.5 [facility] Comment on above: Performed By: #### 2 855891 #### [facility] [address] [place] [address] Lymphocytes (Bld) [#/Vol] 1.0 E9/L Normal 1.0-4.0 [facility] Comment on above: Performed By: #### 2 515753 #### [facility] [address] [place] [address] Lymphocytes/100 WBC (Bld) 16.9 % Normal 14.0-50.0 [facility] Comment on above: Performed By: #### 2 781045 #### [facility] [address] [place] [address] MCH (RBC) [Entitic mass] 30.7 pg Normal 27.0-34.0 [facility] Comment on above: Performed By: #### 2 442464 #### [facility] [address] [place] [address] MCHC (RBC) [Mass/Vol] 33.1 g/dL Normal 31.4-36.0 [facility] Comment on above: Performed By: #### 2 976906 #### [facility] [address] [place] [address] MCV (RBC) [Entitic vol] 92.8 fL Normal 80.0-100.0 [facility] Comment on above: Performed By: #### 2 440851 #### [facility] [address] [place] [address] Monocytes (Bld) [#/Vol] 0.7 E9/L Normal 0.2-1.0 [facility] Comment on above: Performed By: #### 2 267560 #### [facility] [address] [place] [address] Neutrophils (Bld) [#/Vol] 3.6 E9/L Normal 2.0-7.5 [facility] Comment on above: Performed By: #### 2 117936 #### [facility] [address] [place] [address] Neutrophils/100 WBC (Bld) 64.5 % Normal 36.0-75.0 [facility] Comment on above: Result Comment: Shikha pheral smear review performed. Performed By: #### 2 359313 #### [facility] [address] [place] [address] Platelet 260.0 E9/L Normal 150.0-500.0 [facility] Comment on above: Performed By: #### 2 601446 #### [facility] [address] [place] [address] Platelet mean volume (Bld) [Entitic vol] 8.1 fL Normal 6.4-10.8 [facility] Comment on above: Performed By: #### 2 347960 #### [facility] [address] [place] [address] RBC (Bld) [#/Vol] 3.8 E12/L Low 4.3-5.9 [facility] Comment on above: Performed By: #### 2 940673 #### [facility] [address] [place] [address] WBC corrected for nucl RBC Auto (Bld) [#/Vol] 5.6 E9/L Normal 4.0-11.0 [facility] Comment on above: Performed By: #### 2 842580 #### [facility] [address] [place] [address] CHEMISTRYOrdered By: SYSTEM SYSTEM on 09-27-2024 Albumin [...] REPORT Dictated: 09/27/2024 2:39 pm Vinicius Buchanan MD. Signed (Electronic Signature): 09/27/2024 2:39 pm Signed by: Vinicius Buchanan MD Transcribed by: VEENA Technologist: MONY Technical Comments GFR (mL/min/1/73m2) >60 Contrast: Isovue 300 Contrast amount in ml's: 100 Rectal Contrast Given? No Normal [facility] ED Clinical Summaryon 2023 ED Clinical Summary ED Clinical Summary [address] [address] ED Clinical Summary Person Information Name: MERVAT GRAYSON [facility] Age: 73 Years : 1950 Sex: Male Language: Maltese PCP: Lorenzo MARIN DO Marital Status: Visit [...] 09/27/2024 18:41:21 09/27/2024 18:41:21 09/27/2024 18:41:21 ADDRESS: [address] [place] [id number] PHYS DOC NOTES: MEDICAL INFORMATION: Prescriptions Given: [...] for follow-up care DIAGNOSIS: Abdominal pain Normal [facility] ED Note-Physicianon 09-27-20 ED Note-Physician ED Note-Physician Basic Information Time Seen: Micky Cueot DOShirley 09/27/2024 11:38 Chief Complaint bowel resection in [...] 15 mg (more content not included)... Normal [facility] Comment on above: Result Comment: Elec tronically Signed By: Micky Cueto DO\.br\Date and Time Signed: 09/27/24 22:45 EST ED Patient Summaryon 024 ED Patient Summary ED Patient Summary [place] [address] Patient Discharge Instructions Person Information Name: MERVAT GRAYSON Age: 73 Years Arrival Date: 09/27/2024 11:26:26 Discharge Diagnosis: Abdominal pain Primary Care Physician: Lorenzo MARIN DO Provider Information Primary Provider: Micky Cueto DO Advanced Nursing Information Systems Coordinator:None The exam and treatment you received in the Emergency Department were for an urgent problem and are not intended as complete care. It is important that you follow up with a doctor, nurse practitioner, or physician???s gallery assistant for ongoing care. If your symptoms [...] opioids can be used to help relieve gevmsvml-qy-[id number] pain and are often prescribed following a [...] be struggling with addiction, tell your health home health care worker and ask for guidanc (more content not included)... Normal [facility] Extra Blueon 09-27-2024 Tube Collected Plasma Yes Invalid Interpretation Code [facility] Comment on above: Performed By: #### 1 [id number] #### [facility] [address] [place] [address] HEMATOLOGYOrdered By: SYSTEM SYSTEM on 09-27-2024 Basophils/100 [...] 09-27-2024 Albumin [Mass/Vol] 3.3 g/dL Normal 3.3-5.0 [facility] Comment on above: Performed By: #### 2 217691 #### [facility] [address] [place] [address] Albumin/Globulin (S) [Mass conc ratio] 1.3 Normal 1.1-2.2 [facility] Comment on above: Performed By: #### 2 224163 #### [facility] [address] [place] [address] ALP [Catalytic activity/Vol] 83 Int._Unit/L Normal 21-98 [facility] Comment on above: Performed By: #### 2 387549 #### [facility] [address] [place] [address] ALT No additional P-5'-P [Catalytic activity/Vol] 10 Int._Unit/L Normal 6-46 [facility] Comment on above: Performed By: #### 2 253993 #### [facility] [address] [place] [address] AST [Catalytic activity/Vol] 15 Int._Unit/L Normal 5-43 [facility] Comment on above: Performed By: #### 2 784009 #### [facility] [address] [place] [address] Bilirubin [Mass/Vol] 0.5 mg/dL Normal 0.0-1.1 [facility] Comment on above: Performed By: #### 2 154141 #### [facility] [address] [place] [address] Bilirubin.direct [Mass/Vol] 0.1 mg/dL Normal 0.0-0.4 [facility] Comment on above: Performed By: #### 2 412272 #### [facility] [address] [place] [address] Bilirubin.indirect [Mass or moles/Vol] 0.4 mg/dL Normal 0.1-0.9 [facility] Comment on above: Performed By: #### 2 028222 #### [facility] [address] [place] [address] Globulin (S) [Mass/Vol] 2.5 g/dL Normal 1.4-4.0 [facility] Comment on above: Performed By: #### 2 058192 #### [facility] [address] [place] [address] Protein [Mass/Vol] 5.8 g/dL Low 6.0-7.8 [facility] Comment on above: Performed By: #### 2 070345 #### [facility] [address] [place] [address] UA with Cult Rflxon 09-27-20 24 Bilirubin Ql (U) Negative Normal Negative [facility] Comment on above: Performed By: #### 4 [id number] #### [facility] [address] [place] [address] Clarity (U) Clear Normal Clear [facility] Comment on above: Performed By: #### 4 [id number] #### [facility] [address] [place] [address] Color (U) Light-Yellow Normal Yellow [facility] Comment on above: Result Comment: Micr oscopic readings are only performed on those samples that meet specific criteria set forth by [facility]. Performed By: #### 4 [id number] #### [facility] [address] [place] [address] Glucose Ql (U) Negative Normal Negative [facility] Comment on above: Performed By: #### 4 [id number] #### [facility] [address] [place] [address] Hemoglobin Auto test strip (U) [Mass/Vol] Negative Normal Negative [facility] Comment on above: Performed By: #### 4 [id number] #### [facility] [address] [place] [address] Ketones Auto test strip Ql (U) Negative Normal Negative [facility] Comment on above: Performed By: #### 4 [id number] #### [facility] [address] [place] [address] Leukocyte esterase Auto test strip Ql (U) Negative Normal Negative [facility] Comment on above: Performed By: #### 4 [id number] #### [facility] [address] [place] [address] Nitrite Auto test strip Ql (U) Negative Normal Negative [facility] Comment on above: Performed By: #### 4 [id number] #### [facility] [address] [place] [address] pH (U) 6.5 [pH] Invalid Interpretation Code 5.0-9.0 [facility] Comment on above: Performed By: #### 4 [id number] #### [facility] [address] [place] [address] Protein Ql (U) Negative Normal Negative [facility] Comment on above: Performed By: #### 4 [id number] #### [facility] [address] [place] [address] Specific gravity (U) [Rel density] 1.031 Invalid Interpretation Code 1.005-1.030 [facility] Comment on above: Performed By: #### 4 [id number] #### [facility] [address] [place] [id number] Urobilinogen (U) [Mass/Vol] Negative Normal Negative [facility] Comment on above: Performed By: #### 4 [id number] #### [facility] [address] [place] [address] Type of Urine collection method Clean Catch Normal [facility] Comment on above: Performed By: #### 4 [id number] #### [facility] [address] [place] [address] URINALYSISOrdered By: SYSTEM SYSTEM on 09-27-2024 Bilirubin Ql (U) Negative Normal Negativemg/ dL [facility] UA Auto SS Clarity (U) Clear (09/27/24 2:30 PM) Normal Clear [facility] UA Auto SS Color (U) Light-Yellow 1 (09/27/24 2:30 PM) Normal Yellow [facility] UA Auto SS Comment on above: Interpretive Data: M icroscopic readings are only performed on those samples that meet specific criteria set forth by [facility]. Glucose Ql (U) Negative Normal Negativemg/ dL [facility] UA Auto SS Hemoglobin Auto test strip (U) [Mass/Vol] Negative Normal Negativemg/ dL [facility] UA Auto SS Ketones Auto test strip Ql (U) Negative Normal Negativemg/ dL [facility] UA Auto SS Leukocyte esterase Auto test strip Ql (U) Negative Normal NegativeLeu /uL [facility] UA Auto SS Nitrite Auto test strip Ql (U) Negative Normal Negativemg/ dL [facility] UA Auto SS pH (U) 6.5 *NA* (09/27/24 2:30 PM) Invalid Interpretation Code 5.0 - 9.0 [facility] UA Auto SS Protein Ql (U) Negative Normal Negativemg/ dL [facility] UA Auto SS Specific gravity (U) [Rel density] 1.031 *NA* (09/27/24 2:30 PM) Invalid Interpretation Code 1.005 - 1.030 [facility] UA Auto SS Urobilinogen (U) [Mass/Vol] Negative Normal Negativemg/ dL [facility] UA Auto SS URINALYSISOrdered By: Micky Cueto on 09-27-2024 UA Spec Desc Clean Catch (09/27/24 2:30 PM) Normal [facility] UA Auto SS eGFRon 09-27-2024 eGFR 80 mL/min/1.73 m2 Normal >=59 [facility] Comment on above: Performed By: #### 1 [id number] #### [facility] [address] [place] [address] CNOVon 09-16-2024 CNOV Normal [facility] CNPNon 09-15-2024 CNPN Normal [facility] CNPNon 09-14-2024 CNPN Normal [facility] Heart and Vascular Office/Cl inic Noteon [...] with voice recognition artificial intelligence software, specifically [email or web address], [employer] and or [employer]. Substitutions may have occurred due to the [...] calculus (03/22/20 (more content not included)... Normal [facility] Comment on above: Result Comment: Elec tronically Signed By: Casey ESCOBAR, Pato Abraham\.br\Date and Time Signed: 09/10/24 08:33 EST BRIEF OP NOTon 09-08-2024 BRIEF OP NOT HNO ID: [id number] Author: MERVAT SOLORZANO MD Service: Radiology Author Type: Physician Type: Brief Op Note Filed: 09/08/2024 13:31 Note Text: RADIOLOGY BRIEF PROCEDURE NOTE LOG ID: [id number] Surgery/Procedure Date: 09/08/2024 Incision/Procedure Start Time: 1:02 PM Incision Close/Procedure End Time: 1:21 PM Informed Consent obtained under separate note. ATTENDING RADIOLOGIST: Interventional: Dr. Mervat Solorzano [employer]CE: None PRE-PROCEDURAL DIAGNOSIS: Pelvic fluid collection/abscess ANESTHESIA: Procedural Sedation PROCEDURE: Existing drainage catheter was removed over a wire. A Kumpe catheter and wire maneuvered into the small residual pelvic collection, which appeared smaller than on the previous contrast injection of 4 days ago. An 8 Jamaican drainage catheter was placed with the tip in the small pelvic collection and the side holes laid out along the tract. The collection in the pelvis was too small to accommodate a reformed Virgil loop. POST-PROCEDURAL DIAGNOSIS: Same COMPLICATIONS: None ESTIMATED BLOOD LOSS: Minimal INDWELLING DEVICES: 8 Jamaican APD catheter SPECIMENS: None DISPOSITION: Patient hemodynamically stable, alert and awake. Patient transferred to Radiology Recovery/PACU for monitoring prior to anticipated discharge home. FULL REPORT TO FOLLOW (under the Imaging tab in the Chart Review section) SIGNATURE: Mervat Solorzano MD PATIENT NAME: Mervat Grayson DATE: September 08, 2024 TIME: 1:25 PM CONTACT #: [phone] [facility] CBC W Auto Differential pane l (Bld)on 09-08-2024 Basophils (Bld) [#/Vol] 0.06 10*3/uL [facility] Basophils/100 WBC (Bld) 0.9 % [facility] Differential cell count method Nom (Bld) Auto [facility] Eosinophils (Bld) [#/Vol] 0.37 10*3/uL [facility] Eosinophils/100 WBC (Bld) 5.6 % [facility] Erythrocyte distribution width (RBC) [Ratio] 18.3 % High 11.5 - 15.0 % [facility] Hematocrit (Bld) [Volume fraction] 34.6 % Low 39.0 - 51.0 % [facility] Hemoglobin (Bld) [Mass/Vol] 11.0 g/dL Low 13.0 - 17.0 g/dL [facility] Immature granulocytes (Bld) [#/Vol] 0.03 10*3/uL [facility] Immature granulocytes/100 WBC (Bld) 0.5 % [facility] Interpretation and review of laboratory results Abnormal [facility] Lymphocytes (Bld) [#/Vol] 1.21 10*3/uL [facility] Lymphocytes/100 WBC (Bld) 18.4 % [facility] MCH (RBC) [Entitic mass] 31.0 pg 26.0 - 34.0 pg [facility] MCHC (RBC) [Mass/Vol] 31.8 g/dL 30.5 - 36.0 g/dL [facility] MCV (RBC) [Entitic vol] 97.5 fL 80.0 - 100.0 fL [facility] Monocytes (Bld) [#/Vol] 0.73 10*3/uL [facility] Monocytes/100 WBC (Bld) 11.1 % [facility] Neutrophils (Bld) [#/Vol] 4.17 10*3/uL [facility] Neutrophils/100 WBC (Bld) 63.5 % [facility] Nucleated RBC (Bld) [#/Vol] [facility] Nucleated RBC/100 WBC (Bld) [Ratio] 0.0 % /100 WBC [facility] Platelet mean volume (Bld) [Entitic vol] 9.6 fL 9.0 - 12.7 fL [facility] Platelets (Bld) [#/Vol] 225 10*3/uL [facility] RBC (Bld) [#/Vol] 3.55 10*6/uL Low 4.20 - 6.0 0 m/uL [facility] WBC (Bld) [#/Vol] 6.57 10*3/uL [facility] Basophils (Bld) [#/Vol] 0.06 10*3/uL Normal <0.11 [facility] Comment on above: Order Comment: Speci men Type: BLOOD SPECIMENOrdering Facility: [facility] Address: [address] [place] [address] Performed By: #### 5 7021-8 ####[facility] LABCLIA [id number] [place] [address] Basophils/100 WBC (Bld) 0.9 % Normal [facility] Comment on above: Order Comment: Speci men Type: BLOOD SPECIMENOrdering Facility: [facility] Address: [address] [place] [address] Performed By: #### 5 7021-8 ####[facility] LABCLIA [id number] [place] [address] Differential cell count method Nom (Bld) Auto Normal [facility] Comment on above: Order Comment: Speci men Type: BLOOD SPECIMENOrdering Facility: [facility] Address: [address] [place] [address] Performed By: #### 5 7021-8 ####[facility] LABCLIA [id number] [place] [address] Eosinophils (Bld) [#/Vol] 0.37 10*3/uL Normal <0.46 [facility] Comment on above: Order Comment: Speci men Type: BLOOD SPECIMENOrdering Facility: [facility] Address: [address] [place] [address] Performed By: #### 5 7021-8 ####[facility] LABCLIA [id number] [place] [address] Eosinophils/100 WBC (Bld) 5.6 % Normal [facility] Comment on above: Order Comment: Speci men Type: BLOOD SPECIMENOrdering Facility: [facility] Address: [address] [place] [address] Performed By: #### 5 7021-8 ####[facility] LABCLIA [id number] [place] [address] Erythrocyte distribution width (RBC) [Ratio] 18.3 % High 11.5-15.0 [facility] Comment on above: Order Comment: Speci men Type: BLOOD SPECIMENOrdering Facility: [facility] Address: [address] [place] [address] Performed By: #### 5 7021-8 ####[facility] LABCLIA [id number] [place] [address] Hematocrit (Bld) [Volume fraction] 34.6 % Low 39.0-51.0 [facility] Comment on above: Order Comment: Speci men Type: BLOOD SPECIMENOrdering Facility: [facility] Address: [address] [place] [address] Performed By: #### 5 7021-8 ####[facility] LABCLIA [id number] [place] [address] Hemoglobin (Bld) [Mass/Vol] 11.0 g/dL Low 13.0-17.0 [facility] Comment on above: Order Comment: Speci men Type: BLOOD SPECIMENOrdering Facility: [facility] Address: [address] [place] [address] Performed By: #### 5 7021-8 ####[facility] LABCLIA [id number] [place] [address] Immature granulocytes (Bld) [#/Vol] 0.03 10*3/uL Normal <0.10 [facility] Comment on above: Order Comment: Speci men Type: BLOOD SPECIMENOrdering Facility: [facility] Address: [address] [place] [address] Performed By: #### 5 7021-8 ####[facility] LABCLIA [id number] [place] [address] Immature granulocytes/100 WBC (Bld) 0.5 % Normal [facility] Comment on above: Order Comment: Speci men Type: BLOOD SPECIMENOrdering Facility: [facility] Address: [address] [place] [address] Performed By: #### 5 7021-8 ####[facility] LABCLIA [id number] [place] [address] Lymphocytes (Bld) [#/Vol] 1.21 10*3/uL Normal 1.00-4.00 [facility] Comment on above: Order Comment: Speci men Type: BLOOD SPECIMENOrdering Facility: [facility] Address: [address] [place] [address] Performed By: #### 5 7021-8 ####[facility] LABCLIA [id number] [place] [address] Lymphocytes/100 WBC (Bld) 18.4 % Normal [facility] Comment on above: Order Comment: Speci men Type: BLOOD SPECIMENOrdering Facility: [facility] Address: [address] [place] [address] Performed By: #### 5 7021-8 ####[facility] LABCLIA [id number] [place] [address] MCH (RBC) [Entitic mass] 31.0 pg Normal 26.0-34.0 [facility] Comment on above: Order Comment: Speci men Type: BLOOD SPECIMENOrdering Facility: [facility] Address: [address] [place] [address] Performed By: #### 5 7021-8 ####[facility] LABIA [id number] [place] [address] MCHC (RBC) [Mass/Vol] 31.8 g/dL Normal 30.5-36.0 [facility] Comment on above: Order Comment: Speci men Type: BLOOD SPECIMENOrdering Facility: [facility] Address: [address] [place] [address] Performed By: #### 5 7021-8 ####[facility] LABCLIA [id number] [place] [address] MCV (RBC) [Entitic vol] 97.5 fL Normal 80.0-100.0 [facility] Comment on above: Order Comment: Speci men Type: BLOOD SPECIMENOrdering Facility: [facility] Address: [address] [place] [address] Performed By: #### 5 7021-8 ####[facility] LABIA [id number] [place] [address] Monocytes (Bld) [#/Vol] 0.73 10*3/uL Normal <0.87 [facility] Comment on above: Order Comment: Speci men Type: BLOOD SPECIMENOrdering Facility: [facility] Address: [address] [place] [address] Performed By: #### 5 7021-8 ####[facility] LABCLIA [id number] [place] [address] Monocytes/100 WBC (Bld) 11.1 % Normal [facility] Comment on above: Order Comment: Speci men Type: BLOOD SPECIMENOrdering Facility: [facility] Address: [address] [place] [address] Performed By: #### 5 7021-8 ####[facility] LABCLIA [id number] [place] [address] Neutrophils (Bld) [#/Vol] 4.17 10*3/uL Normal 1.45-7.50 [facility] Comment on above: Order Comment: Speci men Type: BLOOD SPECIMENOrdering Facility: [facility] Address: [address] [place] [address] Performed By: #### 5 7021-8 ####[facility] LABCLIA [id number] [place] [address] Neutrophils/100 WBC (Bld) 63.5 % Normal [facility] Comment on above: Order Comment: Speci men Type: BLOOD SPECIMENOrdering Facility: [facility] Address: [address] [place] [address] Performed By: #### 5 7021-8 ####[facility] LABCLIA [id number] [place] [address] Nucleated RBC (Bld) [#/Vol] 10*3/uL Normal <0.01 [facility] Comment on above: Order Comment: Speci men Type: BLOOD SPECIMENOrdering Facility: [facility] Address: [address] [place] [address] Performed By: #### 5 7021-8 ####[facility] LABCLIA [id number] [place] [address] Nucleated RBC/100 WBC (Bld) [Ratio] 0.0 /100 WBC Normal [facility] Comment on above: Order Comment: Speci men Type: BLOOD SPECIMENOrdering Facility: [facility] Address: [address] [place] [address] Performed By: #### 5 7021-8 ####[facility] LABCLIA [id number] [place] [address] Platelet mean volume (Bld) [Entitic vol] 9.6 fL Normal 9.0-12.7 [facility] Comment on above: Order Comment: Speci men Type: BLOOD SPECIMENOrdering Facility: [facility] Address: [address] [place] [address] Performed By: #### 5 7021-8 ####[facility] LABIA [id number] [place] [address] Platelets (Bld) [#/Vol] 225 10*3/uL Normal 150-400 [facility] Comment on above: Order Comment: Speci men Type: BLOOD SPECIMENOrdering Facility: [facility] Address: [address] [place] [address] Performed By: #### 5 7021-8 ####[facility] LABIA [id number] [place] [address] RBC (Bld) [#/Vol] 3.55 10*6/uL Low 4.20-6.[address] [facility] Comment on above: Order Comment: Speci men Type: BLOOD SPECIMENOrdering Facility: [facility] Address: [address] [place] [address] Performed By: #### 5 7021-8 ####[facility] LABIA [id number] [place] [address] WBC (Bld) [#/Vol] 6.57 10*3/uL Normal 3.70-11.[address] [facility] Comment on above: Order Comment: Speci men Type: BLOOD SPECIMENOrdering Facility: [facility] Address: [address] [place] [address] Performed By: #### 5 7021-8 ####[facility] LABCLIA [id number] [place] [address] CNOVSPon 09-08-2024 CNOVSP Normal [facility] metabolic 2000 panelOrdered By: Ti Dooley on 09-08-2024 Albumin [Mass/Vol] 3.6 g/dL Low 3.9 - 4.9 g/dL [facility] ALP [Catalytic activity/Vol] 86 U/L 38 - 113 U/L [facility] ALT [Catalytic activity/Vol] 11 U/L 10 - 54 U/L [facility] Anion gap [Moles/Vol] 10 mmol/L 8 - 15 mmol/L [facility] AST [Catalytic activity/Vol] 13 U/L Low 14 - 40 U/L [facility] Bilirubin [Mass/Vol] 0.4 mg/dL 0.2 - 1 .3 mg/dL [facility] Calcium [Mass/Vol] 9.2 mg/dL 8.5 - 10. 2 mg/dL [facility] Chloride [Moles/Vol] 106 mmol/L 98 - 10 7 mmol/L [facility] CO2 [Moles/Vol] 27 mmol/L 22 - 30 mmol/L [facility] Creatinine [Mass/Vol] 1.20 mg/dL 0.73 - 1.22 mg/dL [facility] GFR/1.73 sq M.predicted among non-blacks MDRD (S/P/Bld) [Vol rate/Area] 65 mL/min/{1.73_m2} - PINF [facility] Comment on above: Estimated Glomerular Filtration Rate [...] [Mass/Vol] 87 mg/dL 74 - 99 mg/dL [facility] Comment on above: The [place] Diabete s Association (ADA) provides guidance for [...] Standards of Medical Care in Diabetes 2016, [place] Diabetes Association. Diabetes Care. 2016.39(Suppl 1). Interpretation and review of laboratory results Abnormal [facility] Potassium [Moles/Vol] 3.5 mmol/L Low 3.7 - 5.1 mmol/L [facility] Protein [Mass/Vol] 6.0 g/dL Low 6.3 - 8.0 g/dL [facility] Sodium [Moles/Vol] 143 mmol/L 136 - 144 mmol/L [facility] Urea nitrogen [Mass/Vol] 13 mg/dL 9 - 24 mg/dL [facility] Comprehensive metabolic 2000 panelon 09-08-2024 Albumin [Mass/Vol] 3.6 g/dL Low 3.9-4.9 [facility] Comment on above: Order Comment: Speci men Type: BLOOD SPECIMENOrdering Facility: [facility] Address: [address] [place] [address] Performed By: #### 2 4323-8 ####[facility] LABCLIA [id number] [place] [address] ALP [Catalytic activity/Vol] 86 U/L Normal 38-113 [facility] Comment on above: Order Comment: Speci men Type: BLOOD SPECIMENOrdering Facility: [facility] Address: [address] [place] [address] Performed By: #### 2 4323-8 ####[facility] LABCLIA [id number] [place] [address] ALT [Catalytic activity/Vol] 11 U/L Normal 10-54 [facility] Comment on above: Order Comment: Speci men Type: BLOOD SPECIMENOrdering Facility: [facility] Address: [address] [place], [place] [address] Performed By: #### 2 4323-8 ####[facility] LABCLIA [id number] [place] [address] Anion gap [Moles/Vol] 10 mmol/L Normal 8-15 [facility] Comment on above: Order Comment: Speci men Type: BLOOD SPECIMENOrdering Facility: [facility] Address: [address] [place], [place] [address] Performed By: #### 2 4323-8 ####[facility] LABCLIA [id number] [place] [address] AST [Catalytic activity/Vol] 13 U/L Low 14-40 [facility] Comment on above: Order Comment: Speci men Type: BLOOD SPECIMENOrdering Facility: [facility] Address: [address] [place] [address] Performed By: #### 2 4323-8 ####[facility] LABCLIA [id number] [place] [address] Bilirubin [Mass/Vol] 0.4 mg/dL Normal 0.2-1.3 [facility] Comment on above: Order Comment: Speci men Type: BLOOD SPECIMENOrdering Facility: [facility] Address: [address] [place], [place] [address] Performed By: #### 2 4323-8 ####[facility] LABCLIA [id number] [place] [address] Calcium [Mass/Vol] 9.2 mg/dL Normal 8.5-10.2 [facility] Comment on above: Order Comment: Speci men Type: BLOOD SPECIMENOrdering Facility: [facility] Address: [address] [place], [place] [address] Performed By: #### 2 4323-8 ####[facility] LABCLIA [id number] [place] [address] Chloride [Moles/Vol] 106 mmol/L Normal 98-107 [facility] Comment on above: Order Comment: Speci men Type: BLOOD SPECIMENOrdering Facility: [facility] Address: [address] [place] [address] Performed By: #### 2 4323-8 ####[facility] LABCLIA [id number] [place] [address] CO2 [Moles/Vol] 27 mmol/L Normal 22-30 [facility] Comment on above: Order Comment: Speci men Type: BLOOD SPECIMENOrdering Facility: [facility] Address: [address] [place] [address] Performed By: #### 2 4323-8 ####[facility] LABCLIA [id number] [place] [address] Creatinine [Mass/Vol] 1.20 mg/dL Normal 0.73-1.22 [facility] Comment on above: Order Comment: Speci men Type: BLOOD SPECIMENOrdering Facility: [facility] Address: [address] [place] [address] Performed By: #### 2 4323-8 ####[facility] LABCLIA [id number] [place] [address] Creatinine and Glomerular filtration rate.predicted panel (S/P/Bld) 65 mL/min/1.73m??? Normal >=60 [facility] Comment on above: Order Comment: Speci men Type: BLOOD SPECIMENOrdering Facility: [facility] Address: [address] [place] [address] Result Comment: Rebekah mated Glomerular Filtration Rate [...] actual GFR. Performed By: #### 2 4323-8 ####[facility] LABCLIA [id number] [place] [address] Glucose [Mass/Vol] 87 mg/dL Normal 74-99 [facility] Comment on above: Order Comment: Speci men Type: BLOOD SPECIMENOrdering Facility: [facility] Address: [address] [place], [place] [address] Result Comment: The [place] Diabetes Association (ADA) provides guidance for cutoff [...] Standards of Medical Care in Diabetes 2016, [place] Diabetes Association. Diabetes Care. 2016.39(Suppl 1). Performed By: #### 2 4323-8 ####[facility] LABCLIA [id number] [place] [address] Potassium [Moles/Vol] 3.5 mmol/L Low 3.7-5.1 [facility] Comment on above: Order Comment: Speci men Type: BLOOD SPECIMENOrdering Facility: [facility] Address: [address] [place] [address] Performed By: #### 2 4323-8 ####[facility] LABCLIA [id number] [place] [address] Protein [Mass/Vol] 6.0 g/dL Low 6.3-8.0 [facility] Comment on above: Order Comment: Speci men Type: BLOOD SPECIMENOrdering Facility: [facility] Address: [address] [place], [place] [address] Performed By: #### 2 4323-8 ####[facility] LABCLIA [id number] [place] [address] Sodium [Moles/Vol] 143 mmol/L Normal 136-144 [facility] Comment on above: Order Comment: Speci men Type: BLOOD SPECIMENOrdering Facility: [facility] Address: [address] [place] [address] Performed By: #### 2 4323-8 ####[facility] LABCLIA [id number] [place] [address] Urea nitrogen [Mass/Vol] 13 mg/dL Normal 9-24 [facility] Comment on above: Order Comment: Speci men Type: BLOOD SPECIMENOrdering Facility: [facility] Address: [address] [place] [address] Performed By: #### 2 4323-8 ####[facility] LABCLIA [id number] [place] [address] IR ABSCESS DRAIN/SPEC COLLEC Ton 09-08-2024 IR ABSCESS DRAIN/SPEC COLLECT * * *Final Report* * * DATE OF EXAM: Sep 08 2024 1:21PM [facility] 7368 - IR ABSCESS DRAIN/SPEC COLLECT / [...] fluid collection approximately 5 cm below the Virgil loop of the drainage catheter. The request is to exchange the drainage catheter and reposition reposition it into the residual fluid collection. _ PROCEDURE DETAILS: Pre-procedure Consent: Informed consent was obtained and a signed consent form was entered into CITIA. Premedicated for contrast allergy: N/A Shikha-procedure discussions: [...] of contrast material into the existing 10 Jamaican catheter did demonstrate tracking of contrast from the Virgil loop inferiorly into a small collection in the pelvis. The collection appeared smaller than on the previous tube injection of 09/04/2024. The existing catheter was exchanged over a wire for a 5 Jamaican Kumpe catheter. In conjunction with a glide wire, the Kumpe catheter was maneuvered under fluoroscopy inferiorly within the tract to the small pelvic fluid collection. The Kumpe catheter was then exchanged over an Amplatz wire for an 8 Jamaican drainage catheter. The collection itself was too small to perform the Virgil loop, so it was positioned with the tip in the collection and the sideholes ablated out along the tract. The catheter was secured to the skin with 0 Prolene suture and a sterile dressing was applied. New drain: [employer] 8 Jamaican all-purpose drainage catheter Number and Type of Removed Specimens: 0: N/A Estimated blood loss (mL): Trace Standardized report: SIR_BiliaryDrainExchang e_v3 Complications There were no immediate complications and no other complications. Conclusion The patient was comfortable and was transferred to the recovery room in stable condition. The procedure was performed by the: attending radiologist, without an gallery assistant. The attending radiologist performed the following procedural activities: Entire procedure IMPRESSION: Existing drainage catheter was removed over a wire. A Kumpe catheter and wire maneuvered into the small residual pelvic collection, which appeared smaller than on the previous contrast injection of 4 days ago. An 8 Jamaican drainage catheter was placed with the tip in the small pelvic collection and the side holes laid out along the tract. The collection in the pelvis was too small to accommodate forming a Virgil loop. PLAN: Flush catheter every other day with 2-3 mL of sterile normal saline to maintain patency. Attestation Signer name: Mervat Solorzano I attest that I was present for the entire procedure. I reviewed the stored images and agree with the report as written. 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SHARON Transcribe Date/Time: Sep 08 2024 3:04P Dictated by : MERVAT SOLORZANO MD This examination was interpreted and the report reviewed and electronically signed by: MERVAT SOLORZANO MD on No (more content not included)... [facility] IR ABSCESS/CYST DRAIN EXCHAN [facility] 09-08-2024 IR ABSCESS/CYST DRAIN EXCHANGE * * *Final Report* * * DATE OF EXAM: Sep 08 2024 1:21PM [facility] 7377 - IR ABSCESS/CYST DRAIN EXCHANGE / [...] fluid collection approximately 5 cm below the Virgil loop of the drainage catheter. The request is to exchange the drainage catheter and reposition reposition it into the residual fluid collection. _ PROCEDURE DETAILS: Pre-procedure Consent: Informed consent was obtained and a signed consent form was entered into CITIA. Premedicated for contrast allergy: N/A Shikha-procedure discussions: [...] of contrast material into the existing 10 Jamaican catheter did demonstrate tracking of contrast from the Virgil loop inferiorly into a small collection in the pelvis. The collection appeared smaller than on the previous tube injection of 09/04/2024. The existing catheter was exchanged over a wire for a 5 Jamaican Kumpe catheter. In conjunction with a glide wire, the Kumpe catheter was maneuvered under fluoroscopy inferiorly within the tract to the small pelvic fluid collection. The Kumpe catheter was then exchanged over an Amplatz wire for an 8 Jamaican drainage catheter. The collection itself was too small to perform the Virgil loop, so it was positioned with the tip in the collection and the sideholes ablated out along the tract. The catheter was secured to the skin with 0 Prolene suture and a sterile dressing was applied. New drain: [employer] 8 Jamaican all-purpose drainage catheter Number and Type of Removed Specimens: 0: N/A Estimated blood loss (mL): Trace Standardized report: SIR_BiliaryDrainExchang e_v3 Complications There were no immediate complications and no other complications. Conclusion The patient was comfortable and was transferred to the recovery room in stable condition. The procedure was performed by the: attending radiologist, without an gallery assistant. The attending radiologist performed the following procedural activities: Entire procedure IMPRESSION: Existing drainage catheter was removed over a wire. A Kumpe catheter and wire maneuvered into the small residual pelvic collection, which appeared smaller than on the previous contrast injection of 4 days ago. An 8 Jamaican drainage catheter was placed with the tip in the small pelvic collection and the side holes laid out along the tract. The collection in the pelvis was too small to accommodate forming a Virgil loop. PLAN: Flush catheter every other day with 2-3 mL of sterile normal saline to maintain patency. Attestation Signer name: Mervat Solorzano I attest that I was present for the entire procedure. I reviewed the stored images and agree with the report as written. 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[facility] Transcribe Date/Time: Sep 08 2024 3:04P Dictated by : MERVAT SOLORZANO MD This examination was interpreted and the report reviewed and electronically signed by: MERVAT SOLORZANO MD on N (more content not included)... [facility] NURSING PROGon 09-08-2024 NURSING PROG HNO ID: [id number] Author: JACLYN RAMÍREZ RN Service: Nursing Author Type: Registered Nurse Type: Nursing Progress Note Filed: 09/10/2024 18:27 Note Text: Completed post procedure phone call. Mervat is feeling well and has returned to baseline diet and activity. Mervat denies questions or concerns related to Drain exchange appointment and had no surgical site concerns. [facility] NURSING PROG HNO ID: [id number] Author: KENYATTA RUIZ RN Service: Radiology Author [...] to patient and , they verbalized understanding. [facility] NURSING PROG HNO ID: [id number] Author: KENYATTA RUIZ, RN Service: Radiology Author Type: Registered Nurse [...] (RECOMMENDATION): None Electronically Signed By: Kenyatta Ruiz [facility] CBC w/ Auto Diffon 4 Basophils/100 WBC (Bld) 0.9 % Normal 0.0-2.0 [facility] Comment on above: Performed By: #### 2 [id number] #### [facility] [address] [place] [address] Basophils/Leukocytes Auto (Bld) [Pure # fraction] 0.1 E9/L Normal 0.0-0.2 [facility] Comment on above: Performed By: #### 2 630455 #### [facility] [address] [place] [address] Eosinophils (Bld) [#/Vol] 0.2 E9/L Normal 0.0-0.5 [facility] Comment on above: Performed By: #### 2 811642 #### [facility] [address] [place] [address] Eosinophils/100 WBC (Bld) 2.3 % Normal 0.0-8.0 [facility] Comment on above: Performed By: #### 2 619177 #### [facility] [address] [place] [address] Erythrocyte distribution width (RBC) [Ratio] 19.3 % High 10.9-14.2 [facility] Comment on above: Performed By: #### 2 131539 #### [facility] [address] [place] [address] Hematocrit (Bld) [Volume fraction] 31.6 % Low 37.7-49.0 [facility] Comment on above: Performed By: #### 2 752343 #### [facility] [address] [place] [address] Hemoglobin (Bld) [Mass/Vol] 10.3 g/dL Low 13.5-17.5 [facility] Comment on above: Performed By: #### 2 567595 #### [facility] [address] [place] [address] Lymphocytes (Bld) [#/Vol] 0.6 E9/L Low 1.0-4.0 [facility] Comment on above: Performed By: #### 2 151666 #### [facility] [address] [place] [address] Lymphocytes/100 WBC (Bld) 7.9 % Low 14.0-50.0 [facility] Comment on above: Performed By: #### 2 084605 #### [facility] [address] [place] [address] MCH (RBC) [Entitic mass] 30.8 pg Normal 27.0-34.0 [facility] Comment on above: Performed By: #### 2 231611 #### [facility] [address] [place] [address] MCHC (RBC) [Mass/Vol] 32.5 g/dL Normal 31.4-36.0 [facility] Comment on above: Performed By: #### 2 604691 #### [facility] [address] [place] [address] MCV (RBC) [Entitic vol] 94.8 fL Normal 80.0-100.0 [facility] Comment on above: Performed By: #### 2 404771 #### [facility] [address] [place] [address] Monocytes (Bld) [#/Vol] 0.4 E9/L Normal 0.2-1.0 [facility] Comment on above: Performed By: #### 2 981253 #### [facility] [address] [place] [address] Neutrophils (Bld) [#/Vol] 6.8 E9/L Normal 2.0-7.5 [facility] Comment on above: Performed By: #### 2 564298 #### [facility] [address] [place] [address] Neutrophils/100 WBC (Bld) 83.7 % High 36.0-75.0 [facility] Comment on above: Performed By: #### 2 543190 #### [facility] [address] [place] [address] Platelet 226.0 E9/L Normal 150.0-500.0 [facility] Comment on above: Performed By: #### 2 012376 #### [facility] [address] [place] [address] Platelet mean volume (Bld) [Entitic vol] 8.4 fL Normal 6.4-10.8 [facility] Comment on above: Performed By: #### 2 954615 #### [facility] [address] [place] [address] RBC (Bld) [#/Vol] 3.3 E12/L Low 4.3-5.9 [facility] Comment on above: Performed By: #### 2 437237 #### [facility] [address] [place] [address] WBC corrected for nucl RBC Auto (Bld) [#/Vol] 8.1 E9/L Normal 4.0-11.0 [facility] Comment on above: Performed By: #### 2 923065 #### [facility] [address] [place] [address] CNPAga 09-07-2024 CNPN Telephone (AVXRPR) MERVAT GRAYSON ([id number]) 1950 M Date Time Provider Department 09/07/24 JACLYN RAMÍREZ AVXRPR During your visit today, we recorded the following information about you: Jaclyn Ramírez RN 09/07/2024 12:44 PM Signed You are scheduled for a Drain Exchange, On 09/08/2024. You are to arrive at 12:00pm and Report to [facility]: [facility]: Radiology Outpatient Desk [id number] You can expect to be here for [...] Labs: Lab-work needs to be drawn? No.. Car Dealer/Transportation: How will you be arriving for your procedure? Private car. You will need a responsible adult to accompany you to and from the procedure. Your water truck driver is required to stay with you until you are taken into the procedure room. Please call [phone] if you have any questions Allergies As [...] Encounter Status:Closed by JACLYN RAMÍREZ on 09/07/24 [facility] 09-04-2024 [facility] Telephone (AVXRPR) MERVAT GRAYSON ([id number]) 1950 M Date Time Provider Department 09/04/24 HARVINDER HARRELL [facility] During your visit today, we recorded the following information about you: Harvinder Harrell, RN 09/04/2024 1:18 PM Signed Called pt to provide pre-procedure instructions. Unidentified voicemail received. Left call back number for pt. Allergies As of Date: 09/04/2024 (No Known Allergies) Date Reviewed: 09/04/2024 Reviewed by: Ashley Angeles, RT(R) - Fully Assessed Reason for Visit: [...] Status:Closed by HARVINDER HARRELL on 09/04/24 Normal [facility] Guidance for drainage and pl acement [...] Kerma: 48.2 mGy Dose Area Product (DAP): 80821.0 mGy*cm^2 Fluoro time: 1:01 min:sec COMPARISON: Drain [...] to further services throughout the entire examination. [facility] Provider, [facility] - 09/04/2024 * * *Final [...] Kerma: 48.2 mGy Dose Area Product (DAP): 81692.0 mGy*cm^2 Fluoro time: 1:01 min:sec COMPARISON: Drain [...] BE REPOSITIONED INTO THE DEEP PELVIC COLLECTION. 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SHARON Transcribe Date/Time: Sep 04 2024 11:53A Dictated by : NISHI MATOS RPA This examination was interpreted and the report reviewed and electronically signed by: OSIRIS ESCOBAR MD on Sep 04 2024 12:29PM EST [facility] Radiology Study observation (narrative) [facility] Guidance for drainage and pl acement of drainage catheterOrdered By: Ccf Provider on 09-04-2024 [facility] XR INJ DRAINAGE TUBEon 09-04 XR INJ [...] Kerma: 48.2 mGy Dose Area Product (DAP): 40395.0 mGy*cm^2 Fluoro time: 1:01 min:sec COMPARISON: Drain [...] examination. The exam was performed by Nishi aMtos RA under the direct supervision of Dr [...] BE REPOSITIONED INTO THE DEEP PELVIC COLLECTION. 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SHARON Transcribe Date/Time: Sep 04 2024 11:53A Dictated by : NISHI MATOS RPA This examination was interpreted and the report reviewed and electronically signed by: OSIRIS ESCOBAR MD on Sep 04 2024 12:29PM EST [id number] Normal [facility] CBC w/ Auto Diffon 4 Basophils/100 WBC (Bld) 0.7 % Normal 0.0-2.0 [facility] Comment on above: Performed By: #### 2 147011 #### [facility] [address] [place] [address] Basophils/Leukocytes Auto (Bld) [Pure # fraction] 0.1 E9/L Normal 0.0-0.2 [facility] Comment on above: Performed By: #### 2 166618 #### [facility] [address] [place] [address] Eosinophils (Bld) [#/Vol] 0.2 E9/L Normal 0.0-0.5 [facility] Comment on above: Performed By: #### 2 857253 #### [facility] [address] [place] [address] Eosinophils/100 WBC (Bld) 2.3 % Normal 0.0-8.0 [facility] Comment on above: Performed By: #### 2 717647 #### [facility] [address] [place] [address] Erythrocyte distribution width (RBC) [Ratio] 19.0 % High 10.9-14.2 [facility] Comment on above: Performed By: #### 2 930346 #### [facility] [address] [place] [address] Hematocrit (Bld) [Volume fraction] 32.7 % Low 37.7-49.0 [facility] Comment on above: Performed By: #### 2 967622 #### [facility] [address] [place] [address] Hemoglobin (Bld) [Mass/Vol] 10.7 g/dL Low 13.5-17.5 [facility] Comment on above: Performed By: #### 2 560289 #### [facility] [address] [place] [address] Lymphocytes (Bld) [#/Vol] 0.7 E9/L Low 1.0-4.0 [facility] Comment on above: Performed By: #### 2 839021 #### [facility] [address] [place] [address] Lymphocytes/100 WBC (Bld) 7.6 % Low 14.0-50.0 [facility] Comment on above: Performed By: #### 2 288091 #### [facility] [address] [place] [address] MCH (RBC) [Entitic mass] 30.9 pg Normal 27.0-34.0 [facility] Comment on above: Performed By: #### 2 926220 #### [facility] [address] [place] [address] MCHC (RBC) [Mass/Vol] 32.8 g/dL Normal 31.4-36.0 [facility] Comment on above: Performed By: #### 2 878310 #### [facility] [address] [place] [address] MCV (RBC) [Entitic vol] 94.4 fL Normal 80.0-100.0 [facility] Comment on above: Performed By: #### 2 181303 #### [facility] [address] [place] [address] Monocytes (Bld) [#/Vol] 0.6 E9/L Normal 0.2-1.0 [facility] Comment on above: Performed By: #### 2 022087 #### [facility] [address] [place] [address] Neutrophils (Bld) [#/Vol] 7.8 E9/L High 2.0-7.5 [facility] Comment on above: Performed By: #### 2 912905 #### [facility] [address] [place] [address] Neutrophils/100 WBC (Bld) 82.8 % High 36.0-75.0 [facility] Comment on above: Performed By: #### 2 902755 #### [facility] [address] [place] [address] Platelet mean volume (Bld) [Entitic vol] 8.1 fL Normal 6.4-10.8 [facility] Comment on above: Performed By: #### 2 204534 #### [facility] [address] [place] [address] Platelets (Bld) [#/Vol] 353.0 E9/L Normal 150.0-500.0 [facility] Comment on above: Performed By: #### 2 822657 #### [facility] [address] [place] [address] RBC (Bld) [#/Vol] 3.5 E12/L Low 4.3-5.9 [facility] Comment on above: Performed By: #### 2 159821 #### [facility] [address] [place] [address] WBC corrected for nucl RBC Auto (Bld) [#/Vol] 9.5 E9/L Normal 4.0-11.0 [facility] Comment on above: Performed By: #### 2 116428 #### [facility] [address] [place] [address] [facility] 08-28-2024 [facility] Normal [facility] 08-27-[address] [facility] [address] ABD/PEL W IVCONon 024 CT ABD/PEL W IVCON * * *Final Report* * * DATE OF EXAM: Aug 25 2024 10:38AM [facility] 0530 - CT ABD/PEL W IVCON / [...] imaging. 5. Additional incidental findings as above. 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SHARON Transcribe Date/Time: Aug 30 2024 8:03A Dictated by : YELITZA DUNN MD This examination was interpreted and the report reviewed and electronically signed by: YELITZA DUNN MD on Aug 30 2024 8:24AM EST [id number] [facility] IR ABSCESS/CYST DRAIN EXCHAN [facility] 08-25-2024 IR ABSCESS/CYST DRAIN EXCHANGE * * *Final Report* * * DATE OF EXAM: Aug 25 2024 12:54PM [facility] 7377 - IR ABSCESS/CYST DRAIN EXCHANGE / [...] CT scan - Pre-existing drainage catheter: 10 Jamaican uracil drainage - Drainage catheter placed: 10 Jamaican APD - External catheter securement: Non-absorbable suture [...] was performed by the:attending radiologist, without an gallery assistant. The attending radiologist performed the following procedural [...] 3 way stop cock. Attestation Signer name: Shawna Kramer (more content not included)... [facility] NURSING PROGon 08-25-2024 NURSING PROG HNO ID: [id number] Author: BRI RIVERA RN Service: ? Author Type: Registered Nurse Type: Nursing Progress Note Filed: 08/25/2024 13:44 Note Text: Called Meme [place] re: left drainage tube not maintaining self suction. Family and patient asking whether or not he should continue irrigating tubing two times a day. [facility] NURSING PROG HNO ID: [id number] Author: HARVINDER HARRELL RN Service: Nursing Author [...] August 25, 2024 TIME: 9:43 AM Normal [facility] CBC w/ Auto Diffon 4 Basophils/100 WBC (Bld) 0.7 % Normal 0.0-2.0 [facility] Comment on above: Performed By: #### 2 167902 #### [facility] [address] [place] [address] Basophils/Leukocytes Auto (Bld) [Pure # fraction] 0.1 E9/L Normal 0.0-0.2 [facility] Comment on above: Performed By: #### 2 532570 #### [facility] [address] [place] [address] Eosinophils (Bld) [#/Vol] 0.2 E9/L Normal 0.0-0.5 [facility] Comment on above: Performed By: #### 2 395173 #### [facility] [address] [place] [address] Eosinophils/100 WBC (Bld) 2.2 % Normal 0.0-8.0 [facility] Comment on above: Performed By: #### 2 366640 #### [facility] [address] [place] [address] Erythrocyte distribution width (RBC) [Ratio] 18.5 % High 10.9-14.2 [facility] Comment on above: Performed By: #### 2 302618 #### [facility] [address] [place] [address] Hematocrit (Bld) [Volume fraction] 29.2 % Low 37.7-49.0 [facility] Comment on above: Performed By: #### 2 695595 #### [facility] [address] [place] [address] Hemoglobin (Bld) [Mass/Vol] 9.6 g/dL Low 13.5-17.5 [facility] Comment on above: Performed By: #### 2 574817 #### [facility] [address] [place] [address] Lymphocytes (Bld) [#/Vol] 0.8 E9/L Low 1.0-4.0 [facility] Comment on above: Performed By: #### 2 712723 #### [facility] [address] [place] [address] Lymphocytes/100 WBC (Bld) 7.8 % Low 14.0-50.0 [facility] Comment on above: Performed By: #### 2 938085 #### [facility] [address] [place] [address] MCH (RBC) [Entitic mass] 30.8 pg Normal 27.0-34.0 [facility] Comment on above: Performed By: #### 2 365341 #### [facility] [address] [place] [address] MCHC (RBC) [Mass/Vol] 32.8 g/dL Normal 31.4-36.0 [facility] Comment on above: Performed By: #### 2 060036 #### [facility] [address] [place] [address] MCV (RBC) [Entitic vol] 94.1 fL Normal 80.0-100.0 [facility] Comment on above: Performed By: #### 2 163541 #### [facility] [address] [place] [address] Monocytes (Bld) [#/Vol] 0.5 E9/L Normal 0.2-1.0 [facility] Comment on above: Performed By: #### 2 729258 #### [facility] [address] [place] [address] Neutrophils (Bld) [#/Vol] 8.6 E9/L High 2.0-7.5 [facility] Comment on above: Performed By: #### 2 050715 #### [facility] [address] [place] [address] Neutrophils/100 WBC (Bld) 84.7 % High 36.0-75.0 [facility] Comment on above: Performed By: #### 2 379550 #### [facility] [address] [place] [address] Platelet mean volume (Bld) [Entitic vol] 8.2 fL Normal 6.4-10.8 [facility] Comment on above: Performed By: #### 2 181699 #### [facility] [address] [place] [address] Platelets (Bld) [#/Vol] 489.0 E9/L Normal 150.0-500.0 [facility] Comment on above: Performed By: #### 2 462533 #### [facility] [address] [place] [address] RBC (Bld) [#/Vol] 3.1 E12/L Low 4.3-5.9 [facility] Comment on above: Performed By: #### 2 350123 #### [facility] [address] [place] [address] WBC corrected for nucl RBC Auto (Bld) [#/Vol] 10.1 E9/L Normal 4.0-11.0 [facility] Comment on above: Performed By: #### 2 867951 #### [facility] [address] [place] [address] CEAon 08-24-2024 CEA 1.8 ng/mL Invalid Interpretation Code [facility] Comment on above: Result Comment: 'NON -SMOKER < 2.5' 'SMOKER < 5.0' The concentration of CEA in a given specimen determined by different manufacturers can vary due to differences in assay methods and reagent specificity. Values obtained with different assay methods cannot be used interchangeably. The methodology used to perform this test was chemiluminescence using [employer]'s Access CEA reagent. Performed By: #### 2 332451 #### [facility] [address] [place] [address] CMPon 08-24-2024 Albumin [Mass/Vol] 3.2 g/dL Low 3.3-5.0 [facility] Comment on above: Performed By: #### 2 823052 #### [facility] [address] [place] [address] Albumin/Globulin (S) [Mass conc ratio] 1.1 Normal 1.1-2.2 [facility] Comment on above: Performed By: #### 2 486971 #### [facility] [address] [place] [address] ALP [Catalytic activity/Vol] 70 Int._Unit/L Normal 21-98 [facility] Comment on above: Performed By: #### 2 746787 #### [facility] [address] [place] [address] ALT No additional P-5'-P [Catalytic activity/Vol] 19 Int._Unit/L Normal 6-46 [facility] Comment on above: Performed By: #### 2 909583 #### [facility] [address] [place] [address] Anion gap [Moles/Vol] 12 mmol/L Normal 6-16 [facility] Comment on above: Performed By: #### 2 067375 #### [facility] [address] [place] [address] AST [Catalytic activity/Vol] 19 Int._Unit/L Normal 5-43 [facility] Comment on above: Performed By: #### 2 486583 #### [facility] [address] [place] [address] Bilirubin [Mass/Vol] 0.5 mg/dL Normal 0.0-1.1 [facility] Comment on above: Performed By: #### 2 740241 #### [facility] [address] [place] [address] Calcium [Mass/Vol] 8.8 mg/dL Low 8.9-11.1 [facility] Comment on above: Performed By: #### 2 575982 #### [facility] [address] [place] [address] Chloride [Moles/Vol] 108 mmol/L Normal 101-111 [facility] Comment on above: Performed By: #### 2 754211 #### [facility] [address] [place] [address] CO2 [Moles/Vol] 26 mmol/L Normal 21-31 [facility] Comment on above: Performed By: #### 2 329152 #### [facility] [address] [place] [address] Creatinine [Mass/Vol] 1.2 mg/dL Normal 0.5-1.3 [facility] Comment on above: Performed By: #### 2 603132 #### [facility] [address] [place] [address] Globulin (S) [Mass/Vol] 2.9 g/dL Normal 1.4-4.0 [facility] Comment on above: Performed By: #### 2 169458 #### [facility] [address] [place] [address] Glucose [Mass/Vol] 115 mg/dL Normal 55-199 [facility] Comment on above: Performed By: #### 2 533800 #### [facility] [address] [place] [address] Potassium [Moles/Vol] 3.7 mmol/L Normal 3.5-5.3 [facility] Comment on above: Performed By: #### 2 136976 #### [facility] [address] [place] [address] Protein [Mass/Vol] 6.1 g/dL Normal 6.0-7.8 [facility] Comment on above: Performed By: #### 2 321218 #### [facility] [address] [place] [address] Sodium [Moles/Vol] 142 mmol/L Normal 135-145 [facility] Comment on above: Performed By: #### 2 835211 #### [facility] [address] [place] [address] Urea nitrogen [Mass/Vol] 14 mg/dL Normal 5-21 [facility] Comment on above: Performed By: #### 2 912804 #### [facility] [address] [place] [address] Urea nitrogen/Creatinine [Mass ratio] 12 No Units Normal 10-20 [facility] Comment on above: Performed By: #### 2 746731 #### [facility] [address] [place] [address] Yaron 08-24-2024 ARACELYN Telephone (AVXRPR) MERVAT GRAYSON ([id number]) 1950 M Date Time Provider Department 08/24/24 ESTRELLA MCMILLANXRPR During your visit today, we recorded the following information about you: Estrella Mcmillan RN 08/24/2024 3:34 PM Signed You are scheduled for a abscess drainage catheter exchange, On 08/25/2024. You are to arrive at 9 15 am and Report to [facility]: [facility]: Radiology Outpatient Desk [id number] Diet: Do not [...] Labs: Lab-work needs to be drawn? No.. Car Dealer/Transportation: How will you be arriving for your procedure? Private car. You will need a responsible adult to accompany you to and from the procedure. Your water truck driver is required to stay with you until you are taken into the procedure room. Call [phone] for questions Allergies As of Date: 08/24/2024 [...] Encounter Status:Closed by ESTRELLA MCMILLAN on 08/24/24 [facility] eGFRon 08-24-2024 eGFR 64 mL/min/1.73 m2 Normal >=59 [facility] Comment on above: Performed By: #### 1 [id number] #### [facility] [address] [place] [address] [facility] 08-19-2024 [facility] [id number] 08-18-2024 [id number] HNO ID: [id number] Author: VALENCIA ALEXANDRA RN Service: ? Author Type: Registered Nurse Type: [id number] Filed: 08/18/2024 12:10 Note Text: Please change mediport dressing 08/21/2024 Normal [facility] Basic metabolic 2000 panelon 08-18-2024 Anion gap [Moles/Vol] 11 mmol/L Normal 8-15 [facility] Comment on above: Order Comment: Speci men Type: BLOOD SPECIMEN Ordering Facility: [facility] Address: [address] [place] [address] Performed By: #### 3 4528-0, 15900-5 #### [facility] CLIA [id number] [address] [place] [address] [place] Calcium [Mass/Vol] 8.4 mg/dL Low 8.5-10.2 [facility] Comment on above: Order Comment: Speci men Type: BLOOD SPECIMEN Ordering Facility: [facility] Address: [address] [place] [address] Performed By: #### 3 4528-0, 07292-3 #### [facility] CLIA [id number] [address] [place] [address] [place] Chloride [Moles/Vol] 105 mmol/L Normal 98-107 [facility] Comment on above: Order Comment: Speci men Type: BLOOD SPECIMEN Ordering Facility: [facility] Address: [address] [place] [address] Performed By: #### 3 4528-0, 50165-7 #### [facility] CLIA [id number] [address] [place] [address] [place] CO2 [Moles/Vol] 26 mmol/L Normal 22-30 [facility] Comment on above: Order Comment: Speci men Type: BLOOD SPECIMEN Ordering Facility: [facility] Address: [address] [place] [address] Performed By: #### 3 4528-0, 76230-6 #### [facility] CLIA [id number] [address] [place] [address] [place] Creatinine [Mass/Vol] 1.08 mg/dL Normal 0.73-1.22 [facility] Comment on above: Order Comment: Speci men Type: BLOOD SPECIMEN Ordering Facility: [facility] Address: [address] [place] [address] Performed By: #### 3 4528-0, 90012-8 #### [facility] CLIA [id number] [place] [address] [place] Creatinine and Glomerular filtration rate.predicted panel (S/P/Bld) 73 mL/min/1.73m??? Normal >=60 [facility] Comment on above: Order Comment: Nazario brooks Type: BLOOD SPECIMEN Ordering Facility: [facility] Address: [address] [place] [address] Result Comment: Rebekah mated Glomerular Filtration Rate [...] actual GFR. Performed By: #### 3 4528-0, 11911-0 #### [facility] CLIA [id number] [place] [address] [place] Glucose [Mass/Vol] 105 mg/dL High 74-99 [facility] Comment on above: Order Comment: Nazario brooks Type: BLOOD SPECIMEN Ordering Facility: [facility] Address: [address] [place] [address] Result Comment: The [place] Diabetes Association (ADA) provides guidance for cutoff [...] Standards of Medical Care in Diabetes 2016, [place] [employer] Association. Diabetes Care. 2016.39(Suppl 1). Performed By: #### 3 4528-0, 71523-1 #### [facility] CLIA [id number] [place] [address] [place] Potassium [Moles/Vol] 3.7 mmol/L Normal 3.7-5.1 [facility] Comment on above: Order Comment: Speci men Type: BLOOD SPECIMEN Ordering Facility: [facility] Address: [address] [place] [address] Performed By: #### 3 4528-0, 23528-7 #### [facility] CLIA [id number] [place] [address] [place] Sodium [Moles/Vol] 142 mmol/L Normal 136-144 [facility] Comment on above: Order Comment: Speci men Type: BLOOD SPECIMEN Ordering Facility: [facility] Address: [address] [place] [address] Performed By: #### 3 4528-0, 00385-1 #### [facility] CLIA [id number] [address] [place] [address] [place] Urea nitrogen [Mass/Vol] 9 mg/dL Normal 9-24 [facility] Comment on above: Order Comment: Speci men Type: BLOOD SPECIMEN Ordering Facility: [facility] Address: [address] [place] [address] Performed By: #### 3 4528-0, 02575-0 #### [facility] CLIA [id number] [address] [place] [address] [place] CBC panel Auto (Bld)on 08-18 Erythrocyte distribution width (RBC) [Ratio] 16.3 % High 11.5-15.0 [facility] Comment on above: Order Comment: Speci men Type: BLOOD SPECIMENOrdering Facility: [facility] Address: [address] [place] [address] Performed By: #### 5 8410-2 ####[facility] [id number] [place] [address] [place] Hematocrit (Bld) [Volume fraction] 25.9 % Low 39.0-51.0 [facility] Comment on above: Order Comment: Speci men Type: BLOOD SPECIMENOrdering Facility: [facility] Address: [address] [place] [address] Performed By: #### 5 8410-2 ####[facility] [id number] [address] Hemoglobin (Bld) [Mass/Vol] 7.9 g/dL Low 13.0-17.0 [facility] Comment on above: Order Comment: Speci men Type: BLOOD SPECIMENOrdering Facility: [facility] Address: [address] [place] [address] Performed By: #### 5 8410-2 ####[facility]ORYCLIA [id number] [address] [place] MCH (RBC) [Entitic mass] 29.2 pg Normal 26.0-34.0 [facility] Comment on above: Order Comment: Speci men Type: BLOOD SPECIMENOrdering Facility: [facility] Address: [address] [place] [address] Performed By: #### 5 8410-2 ####[facility]ORYCLIA [id number] [address] STATES [facility] MCHC (RBC) [Mass/Vol] 30.5 g/dL Normal 30.5-36.0 [facility] Comment on above: Order Comment: Speci men Type: BLOOD SPECIMENOrdering Facility: [facility] Address: [address] [place] [address] Performed By: #### 5 8410-2 ####[facility]ORYCLIA [id number] [address] [place] MCV (RBC) [Entitic vol] 95.6 fL Normal 80.0-100.0 [facility] Comment on above: Order Comment: Speci men Type: BLOOD SPECIMENOrdering Facility: [facility] Address: [address] [place] [address] Performed By: #### 5 8410-2 ####[facility] [id number] [address] [place] Nucleated RBC (Bld) [#/Vol] 10*3/uL Normal <0.01 [facility] Comment on above: Order Comment: Speci men Type: BLOOD SPECIMENOrdering Facility: [facility] Address: [address] [place] [address] Performed By: #### 5 8410-2 ####[facility] [id number] [place] [id number] [place] Platelet mean volume (Bld) [Entitic vol] 9.7 fL Normal 9.0-12.7 [facility] Comment on above: Order Comment: Speci men Type: BLOOD SPECIMENOrdering Facility: [facility] Address: [address] [place] [address] Performed By: #### 5 8410-2 ####[facility] [id number] [place] [id number] [place] Platelets (Bld) [#/Vol] 547 10*3/uL High 150-400 [facility] Comment on above: Order Comment: Speci men Type: BLOOD SPECIMENOrdering Facility: [facility] Address: [address] [place] [address] Performed By: #### 5 8410-2 ####[facility] [id number] [place] [id number] [place] RBC (Bld) [#/Vol] 2.71 10*6/uL Low 4.20-6.00 [facility] Comment on above: Order Comment: Speci men Type: BLOOD SPECIMENOrdering Facility: [facility] Address: [address] [place] [address] Performed By: #### 5 8410-2 ####[facility] [id number] [place] [id number] [place] WBC (Bld) [#/Vol] 10.93 10*3/uL Normal 3.70-11.00 [facility] Comment on above: Order Comment: Speci men Type: BLOOD SPECIMENOrdering Facility: [facility] Address: [address] [place] [address] Performed By: #### 5 8410-2 ####[facility] [id number] [address]on 08-18-2024 [facility] HNO ID: [id number] Author: DEBORAH NORMAN MD Service: Colorectal Author [...] Rx and delivered to the house, and [facility] set up with an outpatient CT scan [...] once for (more content not included)... Normal [facility] Magnesium [facility] 08-18 Magnesium [Mass/Vol] 2.0 mg/dL Normal 1.7-2.3 [facility] Comment on above: Order Comment: Nazario brooks Type: BLOOD SPECIMEN Ordering Facility: [facility] Address: [address] [place] [address] Performed By: #### 3 4528-0, 32169-4 #### [facility] CLIA [id number] [address] [place] [address] [place] NURSING PROGon 08-18-2024 NURSING PROG HNO ID: [id number] Author: VALENCIA ALEXANDRA, ALEXUS Service: Nursing Author Type: Registered Nurse Type: Nursing Progress Note Filed: 08/18/2024 14:46 Note Text: Daily Note: 1445: discharge instructions reviewed and given to and patient. RADHA education provided. Verbalizes understanding. Normal [facility] Phosphate [Mass/Vol] 3.0 mg/dL Normal 2.7-4.8 [facility] Comment on above: Order Comment: Nazario brooks Type: BLOOD SPECIMEN Ordering Facility: [facility] Address: [address] [place] [address] Performed By: #### 3 4528-0, 40383-7 #### [facility] CLIA [id number] [address] [place], [place] [address] [place] ALLIED HEALTHon 08-17-2024 [facility] HNO ID: [id number] Author: LINK WYATT Chaplain Service: Spiritual Care Author Type: [place] Attendant Type: Allied Health Filed: 08/17/2024 10:00 Note Text: SPIRITUAL CARE PROGRESS NOTE SERVICE DATE: 08/17/2024 SERVICE TIME: 939 I met this patient and prayed with him and gave him Holy Communion. I also empathized with him. To contact the Spiritual Care Department: Please call [phone]. SIGNATURE: Chaplain Anel PATIENT NAME: Mervat Grayson DATE: August 17, 2024 TIME: 9:59 AM PAGER/CONTACT #: [phone] Normal [facility] Basic metabolic 2000 panelon 08-17-2024 Anion gap [Moles/Vol] 8 mmol/L Normal 8-15 [facility] Comment on above: Order Comment: Speci men Type: BLOOD SPECIMEN Ordering Facility: [facility] Address: [address] [place] [address] Performed By: #### 2 4321-2 #### [facility] CLIA [id number] [address] [place] [address] [place] Calcium [Mass/Vol] 8.5 mg/dL Normal 8.5-10.2 [facility] Comment on above: Order Comment: Speci men Type: BLOOD SPECIMEN Ordering Facility: [facility] Address: [address] [place] [address] Performed By: #### 2 4321-2 #### [facility] CLIA [id number] [address] [place] [address] [place] Chloride [Moles/Vol] 103 mmol/L Normal 98-107 [facility] Comment on above: Order Comment: Speci men Type: BLOOD SPECIMEN Ordering Facility: [facility] Address: [address] [place] [address] Performed By: #### 2 4321-2 #### [facility] CLIA [id number] [address] [place] [address] [place] CO2 [Moles/Vol] 27 mmol/L Normal 22-30 [facility] Comment on above: Order Comment: Speci men Type: BLOOD SPECIMEN Ordering Facility: [facility] Address: [address] [place] [address] Performed By: #### 2 4321-2 #### [facility] CLIA [id number] [address] [place] [address] [place] Creatinine [Mass/Vol] 1.12 mg/dL Normal 0.73-1.22 [facility] Comment on above: Order Comment: Isaii men Type: BLOOD SPECIMEN Ordering Facility: [facility] Address: [address] [place] [address] Performed By: #### 2 4321-2 #### [facility] CLIA [id number] [address] [place] [address] [place] Creatinine and Glomerular filtration rate.predicted panel (S/P/Bld) 70 mL/min/1.73m??? Normal >=60 [facility] Comment on above: Order Comment: Nazario brooks Type: BLOOD SPECIMEN Ordering Facility: [facility] Address: [address] [place] [address] Result Comment: Rebekah mated Glomerular Filtration Rate [...] GFR. Performed By: #### 2 4321-2 #### [facility] CLIA [id number] [address] [place] [address] [place] Glucose [Mass/Vol] 112 mg/dL High 74-99 [facility] Comment on above: Order Comment: Isaii men Type: BLOOD SPECIMEN Ordering Facility: [facility] Address: [facility] [place] [address] Result Comment: The [place] Diabetes Association (ADA) provides guidance for cutoff [...] Standards of Medical Care in Diabetes 2016, [place] [employer]. Diabetes Care. 2016.39(Suppl 1). Performed By: #### 2 4321-2 #### [facility] CLIA [id number] [address] [place] [address] [place] Potassium [Moles/Vol] 4.0 mmol/L Normal 3.7-5.1 [facility] Comment on above: Order Comment: Speci men Type: BLOOD SPECIMEN Ordering Facility: [facility] Address: [address] [place] [address] Performed By: #### 2 4321-2 #### [facility] CLIA [id number] [address] [place] [address] [place] Sodium [Moles/Vol] 138 mmol/L Normal 136-144 [facility] Comment on above: Order Comment: Speci men Type: BLOOD SPECIMEN Ordering Facility: [facility] Address: [address] [place] [address] Performed By: #### 2 4321-2 #### [facility] CLIA [id number] [address] [place] [address] [place] Urea nitrogen [Mass/Vol] 12 mg/dL Normal 9-24 [facility] Comment on above: Order Comment: Speci men Type: BLOOD SPECIMEN Ordering Facility: [facility] Address: [address] [place] [address] Performed By: #### 2 4321-2 #### [facility] CLIA [id number] [address] [place] [address] [place] CBC panel Auto (Bld)on 08-17 Erythrocyte distribution width (RBC) [Ratio] 16.2 % High 11.5-15.0 [facility] Comment on above: Order Comment: Speci men Type: BLOOD SPECIMENOrdering Facility: [facility] Address: [address] [place] [address] Performed By: #### 6 00-7 #### [facility] CLIA [id number] [address] [place] [address] [place] Hematocrit (Bld) [Volume fraction] 25.7 % Low 39.0-51.0 [facility] Comment on above: Order Comment: Speci men Type: BLOOD SPECIMENOrdering Facility: [facility] Address: [address] [place] [address] Performed By: #### 6 00-7 #### [facility] CLIA [id number] [address] [place] [address] [place] Hemoglobin (Bld) [Mass/Vol] 7.9 g/dL Low 13.0-17.0 [facility] Comment on above: Order Comment: Speci men Type: BLOOD SPECIMENOrdering Facility: [facility] Address: [address] [place] [address] Performed By: #### 6 00-7 #### [facility] CLIA [id number] [address] [place] [address] [place] MCH (RBC) [Entitic mass] 29.2 pg Normal 26.0-34.0 [facility] Comment on above: Order Comment: Speci men Type: BLOOD SPECIMENOrdering Facility: [facility] Address: [address] [place] [address] Performed By: #### 6 00-7 #### [facility] CLIA [id number] [address] [place] [address] [place] MCHC (RBC) [Mass/Vol] 30.7 g/dL Normal 30.5-36.0 [facility] Comment on above: Order Comment: Speci men Type: BLOOD SPECIMENOrdering Facility: [facility] Address: [address] [place] [address] Performed By: #### 6 00-7 #### [facility] CLIA [id number] [address] [place] [address] [place] MCV (RBC) [Entitic vol] 94.8 fL Normal 80.0-100.0 [facility] Comment on above: Order Comment: Speci men Type: BLOOD SPECIMENOrdering Facility: [facility] Address: [address] [place] [address] Performed By: #### 6 00-7 #### [facility] CLIA [id number] [address] [place] [address] [place] Nucleated RBC (Bld) [#/Vol] 10*3/uL Normal <0.01 [facility] Comment on above: Order Comment: Speci men Type: BLOOD SPECIMENOrdering Facility: [facility] Address: [address] [place] [address] Performed By: #### 6 00-7 #### [facility] CLIA [id number] [address] [place] [address] [place] Platelet mean volume (Bld) [Entitic vol] 9.9 fL Normal 9.0-12.7 [facility] Comment on above: Order Comment: Speci men Type: BLOOD SPECIMENOrdering Facility: [facility] Address: [address] [place] [address] Performed By: #### 6 00-7 #### [facility] CLIA [id number] [address] [place] [address] [place] Platelets (Bld) [#/Vol] 543 10*3/uL High 150-400 [facility] Comment on above: Order Comment: Speci men Type: BLOOD SPECIMENOrdering Facility: [facility] Address: [address] [place] [address] Performed By: #### 6 00-7 #### [facility] CLIA [id number] [address] [place] [address] [place] RBC (Bld) [#/Vol] 2.71 10*6/uL Low 4.20-6.00 [facility] Comment on above: Order Comment: Speci men Type: BLOOD SPECIMENOrdering Facility: [facility] Address: [address] [place] [address] Performed By: #### 6 00-7 #### [facility] CLIA [id number] [address] [place] [address] [place] WBC (Bld) [#/Vol] 11.38 10*3/uL High 3.70-11.00 [facility] Comment on above: Order Comment: Speci men Type: BLOOD SPECIMENOrdering Facility: [facility] Address: [address] [place] [address] Performed By: #### 6 00-7 #### [facility] CLIA [id number] [address] [place] [address] [place] CONSULT PROGon 08-17-2024 CONSULT PROG HNO ID: [id number] Author: Maulik GONCALVES MD Service: Infectious Disease [...] 17, 2024 TIME: 6:16 PM PAGER: Normal [facility] Magnesium [facility] 08-17 Magnesium [Mass/Vol] 2.0 mg/dL Normal 1.7-2.3 [facility] Comment on above: Order Comment: Speci men Type: BLOOD SPECIMEN Ordering Facility: [facility] Address: [address] [place] [address] Performed By: #### 2 4321-2 #### [facility] CLIA [id number] [address] [place] [address] [place] Phosphate SerPl-mCncon 08-17 Phosphate [Mass/Vol] 3.1 mg/dL Normal 2.7-4.8 [facility] Comment on above: Order Comment: Speci men Type: BLOOD SPECIMEN Ordering Facility: [facility] Address: [address] [place] [address] Performed By: #### 2 4321-2 #### [facility] CLIA [id number] [address] [place] [id number] [place] Basic metabolic 2000 panelon 08-16-2024 Anion gap [Moles/Vol] 10 mmol/L Normal 8-15 [facility] Comment on above: Order Comment: Speci men Type: BLOOD SPECIMENOrdering Facility: [facility] Address: [address] [place] [address] Performed By: #### 6 462-6 #### [facility] CLIA [id number] [address] [place] [address] [place] Calcium [Mass/Vol] 8.1 mg/dL Low 8.5-10.2 [facility] Comment on above: Order Comment: Speci men Type: BLOOD SPECIMENOrdering Facility: [facility] Address: [address] [place] [address] Performed By: #### 6 462-6 #### [facility] CLIA [id number] [address] [place] [address] [place] Chloride [Moles/Vol] 103 mmol/L Normal 98-107 [facility] Comment on above: Order Comment: Speci men Type: BLOOD SPECIMENOrdering Facility: [facility] Address: [address] [place] [address] Performed By: #### 6 462-6 #### [facility] CLIA [id number] [address] [place] [address] [place] CO2 [Moles/Vol] 26 mmol/L Normal 22-30 [facility] Comment on above: Order Comment: Speci men Type: BLOOD SPECIMENOrdering Facility: [facility] Address: [address] [place] [address] Performed By: #### 6 462-6 #### [facility] [place] [id number] [address] [place] [address] [place] Creatinine [Mass/Vol] 1.05 mg/dL Normal 0.73-1.22 [facility] Comment on above: Order Comment: Nazario men Type: BLOOD SPECIMENOrdering Facility: [facility] Address: [address] [place] [address] Performed By: #### 6 462-6 #### [facility] CLIA [id number] [address] [place] [address] [place] Creatinine and Glomerular filtration rate.predicted panel (S/P/Bld) 76 mL/min/1.73m??? Normal >=60 [facility] Comment on above: Order Comment: Nazario brooks Type: BLOOD SPECIMENOrdering Facility: [facility] Address: [address] [place] [address] Result Comment: Rebekah mated Glomerular Filtration Rate [...] GFR. Performed By: #### 6 462-6 #### [facility] CLIA [id number] [address] [place] [address] [place] Glucose [Mass/Vol] 103 mg/dL High 74-99 [facility] Comment on above: Order Comment: Nazario brooks Type: BLOOD SPECIMENOrdering Facility: [facility] Address: [address] [place] [address] Result Comment: The [place] Diabetes Association (ADA) provides guidance for cutoff [...] Standards of Medical Care in Diabetes 2016, [place] [employer]. Diabetes Care. 2016.39(Suppl 1). Performed By: #### 6 462-6 #### [facility] CLIA [id number] [address] [place] [address] [place] Potassium [Moles/Vol] 4.0 mmol/L Normal 3.7-5.1 [facility] Comment on above: Order Comment: Nazario brooks Type: BLOOD SPECIMENOrdering Facility: [facility] Address: [address] [place] [address] Performed By: #### 6 462-6 #### [facility] CLIA [id number] [address] [place] [address] [place] Sodium [Moles/Vol] 139 mmol/L Normal 136-144 [facility] Comment on above: Order Comment: Nazario brooks Type: BLOOD SPECIMENOrdering Facility: [facility] Address: [address] [place] [address] Performed By: #### 6 462-6 #### [facility] CLIA [id number] [address] [place] [address] [place] Urea nitrogen [Mass/Vol] 12 mg/dL Normal 9-24 [facility] Comment on above: Order Comment: Isaii todd Type: BLOOD SPECIMENOrdering Facility: [facility] Address: [address] [place] [address] Performed By: #### 6 462-6 #### [facility] CLIA [id number] [address] [place] [address] [place] CBC panel Auto (Bld)on 08-16 Erythrocyte distribution width (RBC) [Ratio] 16.4 % High 11.5-15.0 [facility] Comment on above: Order Comment: Speci men Type: BLOOD SPECIMENOrdering Facility: [facility] Address: [address] [place] [address] Performed By: #### 5 8410-2 ####[facility] [id number] [address] [place] Hematocrit (Bld) [Volume fraction] 24.0 % Low 39.0-51.0 [facility] Comment on above: Order Comment: Speci men Type: BLOOD SPECIMENOrdering Facility: [facility] Address: [address] [place] [address] Performed By: #### 5 8410-2 ####[facility] [id number] [address] [place] Hemoglobin (Bld) [Mass/Vol] 7.6 g/dL Low 13.0-17.0 [facility] Comment on above: Order Comment: Speci men Type: BLOOD SPECIMENOrdering Facility: [facility] Address: [address] [place] [address] Performed By: #### 5 8410-2 ####[facility] [id number] [place] [address] [place] MCH (RBC) [Entitic mass] 30.0 pg Normal 26.0-34.0 [facility] Comment on above: Order Comment: Speci men Type: BLOOD SPECIMENOrdering Facility: [facility] Address: [address] [place] [address] Performed By: #### 5 8410-2 ####[facility] [id number] [place] [address] [place] MCHC (RBC) [Mass/Vol] 31.7 g/dL Normal 30.5-36.0 [facility] Comment on above: Order Comment: Speci men Type: BLOOD SPECIMENOrdering Facility: [facility] Address: [address] [place] [address] Performed By: #### 5 8410-2 ####[facility] [id number] [place] [id number] [place] MCV (RBC) [Entitic vol] 94.9 fL Normal 80.0-100.0 [facility] Comment on above: Order Comment: Speci men Type: BLOOD SPECIMENOrdering Facility: [facility] Address: [address] [place] [address] Performed By: #### 5 8410-2 ####[facility]ORYCLIA [id number] [place] [id number] [place] Nucleated RBC (Bld) [#/Vol] 10*3/uL Normal <0.01 [facility] Comment on above: Order Comment: Speci men Type: BLOOD SPECIMENOrdering Facility: [facility] Address: [address] [place] [address] Performed By: #### 5 8410-2 ####[facility]ORYCLIA [id number] [place] [address] [place] Platelet mean volume (Bld) [Entitic vol] 10.0 fL Normal 9.0-12.7 [facility] Comment on above: Order Comment: Speci men Type: BLOOD SPECIMENOrdering Facility: [facility] Address: [address] [place] [address] Performed By: #### 5 8410-2 ####[facility]ORYCLIA [id number] [place] [address] [place] Platelets (Bld) [#/Vol] 520 10*3/uL High 150-400 [facility] Comment on above: Order Comment: Speci men Type: BLOOD SPECIMENOrdering Facility: [facility] Address: [address] [place] [address] Performed By: #### 5 8410-2 ####[facility]ORYCLIA [id number] [place] [id number] [place] RBC (Bld) [#/Vol] 2.53 10*6/uL Low 4.20-6.00 [facility] Comment on above: Order Comment: Speci men Type: BLOOD SPECIMENOrdering Facility: [facility] Address: [address] [place] [address] Performed By: #### 5 8410-2 ####[facility] [id number] [place] [id number] [place] WBC (Bld) [#/Vol] 12.82 10*3/uL High 3.70-11.00 [facility] Comment on above: Order Comment: Speci men Type: BLOOD SPECIMENOrdering Facility: [facility] Address: [address] [place] [address] Performed By: #### 5 8410-2 ####[facility] [id number] [place] [id number] [facility] [place] Magnesium SerPl-ncon 08-16 Magnesium [Mass/Vol] 2.0 mg/dL Normal 1.7-2.3 [facility] Comment on above: Order Comment: Speci men Type: BLOOD SPECIMENOrdering Facility: [facility] Address: [address] [place] [address] Performed By: #### 6 462-6 #### [facility] CLIA [id number] [address] [place] [address] [place] Phosphate SerPl-mCncon 08-16 Phosphate [Mass/Vol] 3.0 mg/dL Normal 2.7-4.8 [facility] Comment on above: Order Comment: Speci men Type: BLOOD SPECIMENOrdering Facility: [facility] Address: [address] [place] [address] Performed By: #### 1 9123-9, 2777-1, 21708-6 ####[facility] [id number] [place] [id number] [place] THERAPY NTon 08-16-2024 THERAPY NT HNO ID: [id number] Author: JOANNE FRANCOIS PT Service: Physical Therapy Author Type: Physical Therapist Type: Therapy (PT/OT/Speech/Resp) Filed: 08/16/2024 11:09 Note Text: Physical Therapy Evaluation Summary SERVICE DATE: 08/16/2024 SERVICE TIME: 1044 to 1107 ROOM: [place] [address] PT 6 Clicks Score: 24 DISCHARGE RECOMMENDATIONS Home ASSESSMENT Response to Therapy Interventions: Good Participation in Activities PRECAUTIONS Abdominal, Bed/Chair Alarm, Diet Restrictions, Fall Risk, Lines/Tubes/Drains, Other: See Comments High Fall Risk, NPO, Refer to [facility] CURRENT HOSPITAL COURSE Abdominal Pain, Post-Op Intra-Abdominal Fluid Collection Following Rt Shelia-Colectomy 07/23/24, S/P Urgent Bilateral Abscess Drainage Catheter Placement 08/14/24 Relevant Past Medical History: Rectal CA, S/P Pelvic Radiation, PE On Xarelto, RA, Non-Ischemic Cardiomyopathy, S/P Rt Shelia-Colectomy Complicated By Ileus 07/23/24, refer to [facility] HOME LIVING Patient Lives With: Spouse, Other: See Comment Comments: one level home in [place], [place] Assistance Available: PRN, Other: See Comment [...] Bars- Shower, Hand Held Shower, Walker- Wheeled, Link Machine Operator, Elevated Toilet Seat PRIOR FUNCTIONAL LEVEL Within Functional Limits, Required Assistance Assistance Required With: Shopping, Laundry, Cleaning, Meals Per Pt, he was independent with ADL's, and his spouse completed all IADL's. Pt has five children in the area for support. SUBJECTIVE Pt was pleasant and agreeable to PT session. THERAPY DIAGNOSIS Reduced mobility-other TREATMENT INTERVENTIONS Evaluation, Gait Training (30693) Timed Code Treatment (minutes): 8 Skilled Treatment [...] August 16, 2024 TIME: 11:09 AM Normal [facility] Basic metabolic 2000 panelon 08-15-2024 Anion gap [Moles/Vol] 10 mmol/L Normal 8-15 [facility] Comment on above: Order Comment: Speci men Type: BLOOD SPECIMENOrdering Facility: [facility] Address: [address] [place] [address] Performed By: #### 6 00-7 #### [facility] CLIA [id number] [address] [place] [address] [place] Calcium [Mass/Vol] 8.1 mg/dL Low 8.5-10.2 [facility] Comment on above: Order Comment: Speci men Type: BLOOD SPECIMENOrdering Facility: [facility] Address: [address] [place] [address] Performed By: #### 6 00-7 #### [facility] CLIA [id number] [address] [place] [address] [place] Chloride [Moles/Vol] 103 mmol/L Normal 98-107 [facility] Comment on above: Order Comment: Speci men Type: BLOOD SPECIMENOrdering Facility: [facility] Address: [address] [place] [address] Performed By: #### 6 00-7 #### [facility] CLIA [id number] [address] [place] [address] [place] CO2 [Moles/Vol] 27 mmol/L Normal 22-30 [facility] Comment on above: Order Comment: Speci men Type: BLOOD SPECIMENOrdering Facility: [facility] Address: [address] [place] [address] Performed By: #### 6 00-7 #### [facility] CLIA [id number] [address] [place] [address] [place] Creatinine [Mass/Vol] 1.00 mg/dL Normal 0.73-1.22 [facility] Comment on above: Order Comment: Nazario brooks Type: BLOOD SPECIMENOrdering Facility: [facility] Address: [facility] [place] [address] Performed By: #### 6 00-7 #### [facility] CLIA [id number] [address] [place] [address] [place] Creatinine and Glomerular filtration rate.predicted panel (S/P/Bld) 80 mL/min/1.73m??? Normal >=60 [facility] Comment on above: Order Comment: Nazario brooks Type: BLOOD SPECIMENOrdering Facility: [facility] Address: [address] [place] [address] Result Comment: Rebekah mated Glomerular Filtration Rate [...] GFR. Performed By: #### 6 00-7 #### [facility] CLIA [id number] [address] [place] [address] [place] Glucose [Mass/Vol] 92 mg/dL Normal 74-99 [facility] Comment on above: Order Comment: Nazario brooks Type: BLOOD SPECIMENOrdering Facility: [facility] Address: [address] [place] [address] Result Comment: The [place] Diabetes [employer] (ADA) provides guidance for cutoff [...] Standards of Medical Care in Diabetes 2016, [place] [employer]. Diabetes Care. 2016.39(Suppl 1). Performed By: #### 6 00-7 #### [facility] CLIA [id number] [address] [place] [address] [place] Potassium [Moles/Vol] 3.5 mmol/L Low 3.7-5.1 [facility] Comment on above: Order Comment: Nazario brooks Type: BLOOD SPECIMENOrdering Facility: [facility] Address: [address] [place] [address] Performed By: #### 6 00-7 #### [facility] CLIA [id number] [address] [place] [address] [place] Sodium [Moles/Vol] 140 mmol/L Normal 136-144 [facility] Comment on above: Order Comment: Nazario brooks Type: BLOOD SPECIMENOrdering Facility: [facility] Address: [address] [place] [address] Performed By: #### 6 00-7 #### [facility] CLIA [id number] [address] [place] [address] [place] Urea nitrogen [Mass/Vol] 12 mg/dL Normal 9-24 [facility] Comment on above: Order Comment: Isaii todd Type: BLOOD SPECIMENOrdering Facility: [facility] Address: [address] [place] [address] Performed By: #### 6 00-7 #### [facility] CLIA [id number] [address] [place] [address] [place] CBC panel Auto (Bld)on 08-15 Erythrocyte distribution width (RBC) [Ratio] 16.1 % High 11.5-15.0 [facility] Comment on above: Order Comment: Speci men Type: BLOOD SPECIMEN Ordering Facility: [facility] Address: [address] [place] [address] Performed By: #### 3 4528-0, 97999-5 #### [facility] CLIA [id number] [address] [place] [place] [address] [place] Hematocrit (Bld) [Volume fraction] 22.9 % Low 39.0-51.0 [facility] Comment on above: Order Comment: Speci men Type: BLOOD SPECIMEN Ordering Facility: [facility] Address: [address] [place] [address] Performed By: #### 3 4528-0, 33505-9 #### [facility] CLIA [id number] [address] [place] [address] [place] Hemoglobin (Bld) [Mass/Vol] 7.4 g/dL Low 13.0-17.0 [facility] Comment on above: Order Comment: Speci men Type: BLOOD SPECIMEN Ordering Facility: [facility] Address: [address] [place] [address] Performed By: #### 3 4528-0, 36433-4 #### [facility] CLIA [id number] [address] [place] [address] [place] MCH (RBC) [Entitic mass] 30.1 pg Normal 26.0-34.0 [facility] Comment on above: Order Comment: Speci men Type: BLOOD SPECIMEN Ordering Facility: [facility] Address: [address] [place] [address] Performed By: #### 3 4528-0, 65876-8 #### [facility] CLIA [id number] [address] [place] [address] [place] MCHC (RBC) [Mass/Vol] 32.3 g/dL Normal 30.5-36.0 [facility] Comment on above: Order Comment: Speci men Type: BLOOD SPECIMEN Ordering Facility: [facility] Address: [address] [place] [address] Performed By: #### 3 4528-0, 96204-6 #### [facility] CLIA [id number] [address] [place] [address] [place] MCV (RBC) [Entitic vol] 93.1 fL Normal 80.0-100.0 [facility] Comment on above: Order Comment: Speci men Type: BLOOD SPECIMEN Ordering Facility: [facility] Address: [address] [place] [address] Performed By: #### 3 4528-0, 83306-4 #### [facility] CLIA [id number] [address] [place] [address] [place] Nucleated RBC (Bld) [#/Vol] 10*3/uL Normal <0.01 [facility] Comment on above: Order Comment: Speci men Type: BLOOD SPECIMEN Ordering Facility: [facility] Address: [address] [place] [address] Performed By: #### 3 4528-0, 93322-1 #### [facility] CLIA [id number] [address] [place] [address] [place] Platelet mean volume (Bld) [Entitic vol] 9.5 fL Normal 9.0-12.7 [facility] Comment on above: Order Comment: Speci men Type: BLOOD SPECIMEN Ordering Facility: [facility] Address: [address] [place] [address] Performed By: #### 3 4528-0, 28028-4 #### [facility] CLIA [id number] [address] [place] [address] [place] Platelets (Bld) [#/Vol] 476 10*3/uL High 150-400 [facility] Comment on above: Order Comment: Speci men Type: BLOOD SPECIMEN Ordering Facility: [facility] Address: [address] [place] [address] Performed By: #### 3 4528-0, 56861-0 #### [facility] CLIA [id number] [address] [place] [address] [place] RBC (Bld) [#/Vol] 2.46 10*6/uL Low 4.20-6.00 [facility] Comment on above: Order Comment: Speci men Type: BLOOD SPECIMEN Ordering Facility: [facility] Address: [address] [place], [place] [address] Performed By: #### 3 4528-0, 27792-2 #### [facility] CLIA [id number] [address] [place] WBC (Bld) [#/Vol] 13.47 10*3/uL High 3.70-11.00 [facility] Comment on above: Order Comment: Speci men Type: BLOOD SPECIMEN Ordering Facility: [facility] Address: [address] [place] [address] Performed By: #### 3 4528-0, 83921-7 #### [facility] CLIA [id number] [address] [place] [id number] [facility] CONSULTon 08-15-2024 CONSULT HNO ID: [id number] Author: Maulik GONCALVES MD Service: Infectious Disease [...] August 15, 2024 TIME: 12:20 PM Normal [facility] CONSULT HNO ID: [id number] Author: Maulik GONCALVES MD Service: Infectious Disease Author Type: Physician Type: Consults Filed: 08/17/2024 13:05 Note Text: [facility] - Consultation MERVAT GRAYSON : 1950 AGE: 73 SEX: M CSN: [id number] HOSP SVC: Surgical [facility] ATTENDING PHYSICIAN: DEBORAH NORMAN DATE OF SERVICE: 08/15/2024 TIME OF SERVICE: 12:00 PM CONSULTING PHYSICIAN: Freedom Goncalves M.D. REQUESTED BY: Dr. Dbeorah Norman. HISTORY OF PRESENT ILLNESS: This is a very pleasant 73-year-old male who lives in [place], [place]. Apparently, he has history of PE and also rheumatoid arthritis. He was diagnosed with rectal cancer in 2021, underwent chemoradiation which apparently completed sometime in 10/2022 and had been doing well and underwent a surveillance colonoscopy on 07/21, apparently subsequently developed cecal perforation and he was admitted to [facility] on 07/22. He underwent laparoscopic right [...] specimens have been submitted to microbiology from IR. Both specimens and Gram stain have revealed [...] by you. Freedom Goncalves M.D. Infectious Disease KG:[id number] /[id number] Normal [facility] Magnesium SerPl-mCncon 08-15 Magnesium [Mass/Vol] 2.0 mg/dL Normal 1.7-2.3 [facility] Comment on above: Order Comment: Speci men Type: BLOOD SPECIMENOrdering Facility: [facility] Address: [address] [place] [address] Performed By: #### 6 00-7 #### [facility] CLIA [id number] [address] [place] [address] [place] [address] [place] Phosphate SerPl-mCncon 08-15 Phosphate [Mass/Vol] 3.9 mg/dL Normal 2.7-4.8 [facility] Comment on above: Order Comment: Speci men Type: BLOOD SPECIMENOrdering Facility: [facility] Address: [address] [place] [address] Performed By: #### 6 00-7 #### [facility] CLIA [id number] [address] [place] [address] [place] THERAPY NTon 08-15-2024 THERAPY NT HNO ID: [id number] Author: REJI TAM OTR/L Service: Occupational Therapy Author Type: Occupational Therapist Type: Therapy (PT/OT/Speech/Resp) Filed: 08/15/2024 14:00 Note Text: Occupational Therapy Evaluation Summary SERVICE DATE: 08/15/2024 SERVICE TIME: 1234 to 1303 ROOM: [place] [address] OT 6 Clicks Score: 19 Abdominal Pain, [...] Comments High Fall Risk, NPO, Refer to [facility] CURRENT HOSPITAL COURSE Abdominal Pain, Post-Op Intra-Abdominal Fluid Collection Following Rt Shelia-Colectomy 07/23/24, S/P Urgent Bilateral Abscess Drainage Catheter Placement 08/14/24 Relevant Past Medical History: Rectal CA, S/P Pelvic Radiation, PE On Xarelto, RA, Non-Ischemic Cardiomyopathy, S/P Rt Shelia-Colectomy Complicated By Ileus 07/23/24, refer to [facility] HOME LIVING Patient Lives With: Spouse, Other: See Comment Comments: one level home in [place], [place] Assistance Available: PRN, Other: See Comment Comments: Spouse returning home today from out of the country, and five children in area for support Entry To Home: Stairs, With Rail Number Of Stairs Into Home: 0 Tub/Shower Type: WIS Laundry: 1st level, Spouse completes Equipment Owned: Shower Chair, Grab Bars- Shower, Hand Held Shower, Walker- Wheeled, Link Machine Operator, Elevated Toilet Seat PRIOR FUNCTIONAL LEVEL Within [...] Muscle Weakness (generalized) TREATMENT INTERVENTIONS Evaluation, Self Shelter Management (27444) Timed Code Treatment (minutes): 14 Skilled Treatment [...] with self-care, cogn (more content not included)... [facility] ALLIED HEALTHon 08-14-2024 ALLIED HEALTH HNO ID: [id number] Author: JACKELINE FAUSTIN TECHNOLOGIST Service: ? Author Type: Technologist Type: [...] PATIENT PRESENTS WITH AN 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: No RADIOLOGY DEPARTMENT: Biopsy PERIPHERAL IV DATA: Not applicable SIGNED BY: TECHNOLOGIST Eldon August 14, 2024 5:26 PM [facility] BRIEF OP NOTon 08-14-2024 BRIEF OP NOT HNO ID: [id number] Author: OSIRIS ESCOBAR MD Service: Interventional Radiology Author Type: Physician Type: Brief Op Note Filed: 08/14/2024 18:05 Note Text: BRIEF OPERATIVE / PROCEDURE NOTE LOG ID: [id number] SURGERY/PROCEDURE DATE: 08/14/2024 INCISION/PROCEDURE START TIME: 5:23 PM INCISION CLOSE/PROCEDURE END TIME: 5:50 PM SURGEON(S)/PROCEDURALIS T(S) AND [employer] PRODUCE(S): Surgeons and Role: * Osiris Escobar MD [...] DATE: August 14, 2024 TIME: 6:03 PM Normal [facility] Bacteria Bld Culton 08-14-20 24 Bacteria identified Cx Nom (Bld) CULTURE, BLOOD: No growth 5 days Normal [facility] Comment on above: Performed By: #### 6 00-7 #### [facility] CLIA [id number] [address] [place] [address] [place] Bacteria identified Cx Nom (Bld) CULTURE, BLOOD: No growth 5 days Normal [facility] Comment on above: Performed By: #### 6 00-7 #### [facility] CLIA [id number] [address] [place] [address] [place] Bacteria Wnd Culton 08-14-20 24 Bacteria identified Cx Nom (Wound) ORGANISM ID: 1 Many Escherichia coli Refer to specimen collected on 08/14/2024 at 1703 ([id number]) ORGANISM ID: 2 Moderate Klebsiella pneumoniae Refer to specimen collected on 08/14/2024 at 1703 ([id number]) ORGANISM ID: 3 Few Enterococcus faecalis No susceptibility testing done. Call lab within 72 hours to initiate work-up if clinically indicated. Cephalosporins, clindamycin, and TMP-SMX are not effective for the treatment of enterococcal infections. GRAM STAIN: Rare Gram positive cocci Rare Gram negative bacilli Rare Gram positive bacilli No Polymorphonuclear Leukocytes Abnormal [facility] Comment on above: Performed By: #### 6 462-6 #### [facility] CLIA [id number] [facility] [place] [address] [place] Bacteria identified Cx [...] , Intermediate >=.5 , Resistant >=1 Abnormal [facility] Comment on above: Performed By: #### 6 462-6 #### [facility] CLIA [id number] [address] [place] [address] [place] [address] [place] CBC W Auto Differential pane l (Bld)on 08-14-2024 Basophils (Bld) [#/Vol] 0.04 10*3/uL Normal <0.11 [facility] Comment on above: Order Comment: Speci men Type: BLOOD SPECIMEN Ordering Facility: [facility] Address: [address] [place] [address] Performed By: #### 3 4528-0, 00745-0 #### [facility] CLIA [id number] [address] [place] [address] [place] Basophils/100 WBC (Bld) 0.3 % Normal [facility] Comment on above: Order Comment: Speci men Type: BLOOD SPECIMEN Ordering Facility: [facility] Address: [address] [place] [address] Performed By: #### 3 4528-0, 03117-8 #### [facility] CLIA [id number] [address] [place] [address] [place] Differential cell count method Nom (Bld) Auto Normal [facility] Comment on above: Order Comment: Speci men Type: BLOOD SPECIMEN Ordering Facility: [facility] Address: [address] [place] [address] Performed By: #### 3 4528-0, 69840-6 #### [facility] CLIA [id number] [address] [place] [address] [place] Eosinophils (Bld) [#/Vol] 0.14 10*3/uL Normal <0.46 [facility] Comment on above: Order Comment: Speci men Type: BLOOD SPECIMEN Ordering Facility: [facility] Address: [address] [place] [address] Performed By: #### 3 4528-0, 80534-0 #### [facility] CLIA [id number] [address] [place] [address] [place] Eosinophils/100 WBC (Bld) 1.0 % Normal [facility] Comment on above: Order Comment: Speci men Type: BLOOD SPECIMEN Ordering Facility: [facility] Address: [address] [place] [address] Performed By: #### 3 4528-0, 38516-3 #### [facility] CLIA [id number] [address] [place] [address] [place] Erythrocyte distribution width (RBC) [Ratio] 16.6 % High 11.5-15.0 [facility] Comment on above: Order Comment: Speci men Type: BLOOD SPECIMEN Ordering Facility: [facility] Address: [address] [place] [address] Performed By: #### 3 4528-0, 93312-1 #### [facility] CLIA [id number] [address] [place] [address] [place] Hematocrit (Bld) [Volume fraction] 21.8 % Low 39.0-51.0 [facility] Comment on above: Order Comment: Speci men Type: BLOOD SPECIMEN Ordering Facility: [facility] Address: [address] [place] [address] Performed By: #### 3 4528-0, 43521-8 #### [facility] CLIA [id number] [address] [place] [address] [place] Hemoglobin (Bld) [Mass/Vol] 6.9 g/dL Low 13.0-17.0 [facility] Comment on above: Order Comment: Speci men Type: BLOOD SPECIMEN Ordering Facility: [facility] Address: [address] [place] [address] Performed By: #### 3 4528-0, 83266-9 #### [facility] CLIA [id number] [address] [place] [address] [place] Immature granulocytes (Bld) [#/Vol] 0.18 10*3/uL High <0.10 [facility] Comment on above: Order Comment: Speci men Type: BLOOD SPECIMEN Ordering Facility: [facility] Address: [address] [place] [address] Performed By: #### 3 4528-0, 22727-0 #### [facility] CLIA [id number] [address] [place] [address] [place] Immature granulocytes/100 WBC (Bld) 1.3 % Normal [facility] Comment on above: Order Comment: Speci men Type: BLOOD SPECIMEN Ordering Facility: [facility] Address: [address] [place] [address] Performed By: #### 3 4528-0, 39897-9 #### [facility] CLIA [id number] [address] [place] [address] [place] Lymphocytes (Bld) [#/Vol] 0.86 10*3/uL Low 1.00-4.00 [facility] Comment on above: Order Comment: Speci men Type: BLOOD SPECIMEN Ordering Facility: [facility] Address: [address] [place] [address] Performed By: #### 3 4528-0, 61715-6 #### [facility] CLIA [id number] [address] [place] [address] [place] Lymphocytes/100 WBC (Bld) 6.1 % Normal [facility] Comment on above: Order Comment: Speci men Type: BLOOD SPECIMEN Ordering Facility: [facility] Address: [address] [place] [address] Performed By: #### 3 4528-0, 52547-9 #### [facility] CLIA [id number] [address] [place] [address] [place] MCH (RBC) [Entitic mass] 29.7 pg Normal 26.0-34.0 [facility] Comment on above: Order Comment: Speci men Type: BLOOD SPECIMEN Ordering Facility: [facility] Address: [address] [place] [address] Performed By: #### 3 4528-0, 24594-9 #### [facility] CLIA [id number] [address] [place] [address] [place] MCHC (RBC) [Mass/Vol] 31.7 g/dL Normal 30.5-36.0 [facility] Comment on above: Order Comment: Speci men Type: BLOOD SPECIMEN Ordering Facility: [facility] Address: [address] [place] [address] Performed By: #### 3 4528-0, 11022-8 #### [facility] CLIA [id number] [address] [place] [address] [place] MCV (RBC) [Entitic vol] 94.0 fL Normal 80.0-100.0 [facility] Comment on above: Order Comment: Speci men Type: BLOOD SPECIMEN Ordering Facility: [facility] Address: [address] [place] [address] Performed By: #### 3 4528-0, 11774-8 #### [facility] CLIA [id number] [address] [place] [address] [place] Monocytes (Bld) [#/Vol] 0.95 10*3/uL High <0.87 [facility] Comment on above: Order Comment: Speci men Type: BLOOD SPECIMEN Ordering Facility: [facility] Address: [address] [place] [address] Performed By: #### 3 4528-0, 95585-6 #### [facility] CLIA [id number] [address] [place] [address] [place] Monocytes/100 WBC (Bld) 6.8 % Normal [facility] Comment on above: Order Comment: Speci men Type: BLOOD SPECIMEN Ordering Facility: [facility] Address: [address] [place] [address] Performed By: #### 3 4528-0, 53391-2 #### [facility] CLIA [id number] [address] [place] [address] [place] Neutrophils (Bld) [#/Vol] 11.83 10*3/uL High 1.45-7.50 [facility] Comment on above: Order Comment: Speci men Type: BLOOD SPECIMEN Ordering Facility: [facility] Address: [address] [place] [address] Performed By: #### 3 4528-0, 80522-9 #### [facility] CLIA [id number] [address] [place] [address] [place] Neutrophils/100 WBC (Bld) 84.5 % Normal [facility] Comment on above: Order Comment: Speci men Type: BLOOD SPECIMEN Ordering Facility: [facility] Address: [address] [place] [address] Performed By: #### 3 4528-0, 07096-1 #### [facility] CLIA [id number] [address] [place] [address] [place] Nucleated RBC (Bld) [#/Vol] 10*3/uL Normal <0.01 [facility] Comment on above: Order Comment: Speci men Type: BLOOD SPECIMEN Ordering Facility: [facility] Address: [address] [place] [address] Performed By: #### 3 4528-0, 76425-1 #### [facility] CLIA [id number] [address] [place] [address] [place] Nucleated RBC/100 WBC (Bld) [Ratio] 0.0 /100 WBC Normal [facility] Comment on above: Order Comment: Speci men Type: BLOOD SPECIMEN Ordering Facility: [facility] Address: [address] [place] [address] Performed By: #### 3 4528-0, 70299-6 #### [facility] CLIA [id number] [address] [place] [address] [place] Platelet mean volume (Bld) [Entitic vol] 9.8 fL Normal 9.0-12.7 [facility] Comment on above: Order Comment: Speci men Type: BLOOD SPECIMEN Ordering Facility: [facility] Address: [address] [place] [address] Performed By: #### 3 4528-0, 06970-3 #### [facility] CLIA [id number] [address] [place] [address] [place] Platelets (Bld) [#/Vol] 559 10*3/uL High 150-400 [facility] Comment on above: Order Comment: Speci men Type: BLOOD SPECIMEN Ordering Facility: [facility] Address: [address] [place] [address] Performed By: #### 3 4528-0, 76072-3 #### [facility] CLIA [id number] [address] [place] [address] [place] RBC (Bld) [#/Vol] 2.32 10*6/uL Low 4.20-6.00 [facility] Comment on above: Order Comment: Speci men Type: BLOOD SPECIMEN Ordering Facility: [facility] Address: [address] [place] [address] Performed By: #### 3 4528-0, 71666-4 #### [facility] CLIA [id number] [address] [place] [address] [place] WBC (Bld) [#/Vol] 14.00 10*3/uL High 3.70-11.00 [facility] Comment on above: Order Comment: Speci men Type: BLOOD SPECIMEN Ordering Facility: [facility] Address: [address] [place] [address] Performed By: #### 3 4528-0, 41318-2 #### [facility] CLIA [id number] [address] [place] [address] [place] [address] [...] the pelvis. - Drainage catheter placed: 10 Jamaican UreSil multipurpose drainage catheter - External catheter [...] the pelvis. - Drainage catheter placed: 10 [place] UreSil multipurpose drainage catheter - External catheter [...] other comp (more content not included)... Normal [facility] Comprehensive metabolic 2000 panelon 08-14-2024 Albumin [Mass/Vol] 2.8 g/dL Low 3.9-4.9 [facility] Comment on above: Order Comment: Speci men Type: BLOOD SPECIMEN Ordering Facility: [facility] Address: [address] [place] [address] Performed By: #### 2 4321-2 #### [facility] CLIA [id number] [address] [place] [address] [place] ALP [Catalytic activity/Vol] 107 U/L Normal 38-113 [facility] Comment on above: Order Comment: Speci men Type: BLOOD SPECIMEN Ordering Facility: [facility] Address: [address] [place] [address] Performed By: #### 2 4321-2 #### [facility] CLIA [id number] [address] [place] [address] [place] ALT [Catalytic activity/Vol] 19 U/L Normal 10-54 [facility] Comment on above: Order Comment: Speci men Type: BLOOD SPECIMEN Ordering Facility: [facility] Address: [address] [place] [address] Performed By: #### 2 4321-2 #### [facility] CLIA [id number] [address] [place] [address] [place] Anion gap [Moles/Vol] 12 mmol/L Normal 8-15 [facility] Comment on above: Order Comment: Speci men Type: BLOOD SPECIMEN Ordering Facility: [facility] Address: [facility] [place] [address] Performed By: #### 2 4321-2 #### [facility] CLIA [id number] [address] [place] [address] [place] AST [Catalytic activity/Vol] 23 U/L Normal 14-40 [facility] Comment on above: Order Comment: Speci men Type: BLOOD SPECIMEN Ordering Facility: [facility] Address: [address] [place] [address] Performed By: #### 2 4321-2 #### [facility] CLIA [id number] [address] [place] [address] [place] Bilirubin [Mass/Vol] 0.9 mg/dL Normal 0.2-1.3 [facility] Comment on above: Order Comment: Speci men Type: BLOOD SPECIMEN Ordering Facility: [facility] Address: [address] [place] [address] Performed By: #### 2 4321-2 #### [facility] CLIA [id number] [address] [place] [address] [place] Calcium [Mass/Vol] 8.4 mg/dL Low 8.5-10.2 [facility] Comment on above: Order Comment: Speci men Type: BLOOD SPECIMEN Ordering Facility: [facility] Address: [address] [place] [address] Performed By: #### 2 4321-2 #### [facility] CLIA [id number] [address] [place] [address] [place] Chloride [Moles/Vol] 100 mmol/L Normal 98-107 [facility] Comment on above: Order Comment: Speci men Type: BLOOD SPECIMEN Ordering Facility: [facility] Address: [address] [place] [address] Performed By: #### 2 4321-2 #### [facility] CLIA [id number] [address] [place] [address] [place] CO2 [Moles/Vol] 26 mmol/L Normal 22-30 [facility] Comment on above: Order Comment: Speci men Type: BLOOD SPECIMEN Ordering Facility: [facility] Address: [address] [place] [address] Performed By: #### 2 4321-2 #### [facility] CLIA [id number] [address] [place] [address] [place] Creatinine [Mass/Vol] 0.87 mg/dL Normal 0.73-1.22 [facility] Comment on above: Order Comment: Nazario brooks Type: BLOOD SPECIMEN Ordering Facility: [facility] Address: [address] [place] [address] Performed By: #### 2 4321-2 #### [facility] CLIA [id number] [place] [address] [place] Creatinine and Glomerular filtration rate.predicted panel (S/P/Bld) 92 mL/min/1.73m??? Normal >=60 [facility] Comment on above: Order Comment: Isai todd Type: BLOOD SPECIMEN Ordering Facility: [facility] Address: [address] [place] [address] Result Comment: Rebekah mated Glomerular Filtration Rate [...] GFR. Performed By: #### 2 4321-2 #### [facility] CLIA [id number] [place] [address] [place] Glucose [Mass/Vol] 83 mg/dL Normal 74-99 [facility] Comment on above: Order Comment: Nazario todd Type: BLOOD SPECIMEN Ordering Facility: [facility] Address: [address] [place] [address] Result Comment: The [place] Diabetes Association (ADA) provides guidance for cutoff [...] Standards of Medical Care in Diabetes 2016, [place] Diabetes Association. Diabetes Care. 2016.39(Suppl 1). Performed By: #### 2 4321-2 #### [facility] CLIA [id number] [address] [place] [address] [place] Potassium [Moles/Vol] 3.4 mmol/L Low 3.7-5.1 [facility] Comment on above: Order Comment: Speci men Type: BLOOD SPECIMEN Ordering Facility: [facility] Address: [address] [place] [address] Performed By: #### 2 4321-2 #### [facility] CLIA [id number] [address] [place] [address] [place] Protein [Mass/Vol] 5.8 g/dL Low 6.3-8.0 [facility] Comment on above: Order Comment: Speci men Type: BLOOD SPECIMEN Ordering Facility: [facility] Address: [address] [place] [address] Performed By: #### 2 4321-2 #### [facility] CLIA [id number] [address] [place] [address] [place] Sodium [Moles/Vol] 138 mmol/L Normal 136-144 [facility] Comment on above: Order Comment: Speci men Type: BLOOD SPECIMEN Ordering Facility: [facility] Address: [address] [place] [address] Performed By: #### 2 4321-2 #### [facility] CLIA [id number] [address] [place] [address] [place] Urea nitrogen [Mass/Vol] 12 mg/dL Normal 9-24 [facility] Comment on above: Order Comment: Speci men Type: BLOOD SPECIMEN Ordering Facility: [facility] Address: [address] [place] [address] Performed By: #### 2 4321-2 #### [facility] CLIA [id number] [address] [place] [address] [place] ECG COMPLETEon 08-14-2024 ECG COMPLETE Ventricular Rate : 8 1 BPM Atrial Rate : 81 BPM P-R Interval : 50 ms QRS Duration : 105 ms Q-T Interval : 410 ms QTC Calculation(Bazett) : 476 ms Calculated P Hammond : 34 degrees Calculated R Hammond : -25 degrees Calculated T Hammond : 43 degrees Sinus rhythm Multiple ventricular premature complexes Short DE interval Borderline left axis deviation Borderline prolonged QT interval Baseline wander in lead(s) V2 Abnormal ECG Confirmed by RANDY SIM M.D. ([id number]) on 08/18/2024 10:59:51 AM NAME : MERVAT GRAYSON PID : [id number] : 1950 Gender : Male Race : ORD : [id number] Procedure Date : Aug 14 2024 21:02:37 Edit Date : Aug 18 2024 10:59:55 Diagnosis: Sinus rhythm Multiple ventricular premature complexes Short DE interval Borderline left axis deviation Borderline prolonged QT interval Baseline wander in lead(s) V2 Abnormal ECG Confirmed by RANDY SIM M.D. ([id number]) on 08/18/2024 10:59:51 AM Test Reason : Check QT Location : 400 : FVEKG PK3B 21 Overread By : RANDY SIM M.D. Edited By : RANDY SIM M.D. Referred By : , Acquired by : MERNA TESFAYE [facility] ED PROV NOTEon 08-14-2024 ED PROV NOTE HNO ID: [id number] Author: JULIA STEWART MD Service: Emergency Medicine [...] Clinical Impression Clinical Impressions as of 08/14/24 1832 Abscess Intraabdominal fluid collection S/P right colectomy Rectal cancer (HCC) MDM / Disposition / Plan Reviewed otpt notes, had CT with abscess, CORS aaware, admit for IR and iv abx Management Management of the patient was discussed with:admitting team SIGNATURE: Julia Stewart MD - JULIA STEWART 08/14/24 1833 Normal [facility] ED Triage Noteon 08-14-2024 ED Triage Note HNO ID: [id number] Author: BO GANDHI MD Service: Emergency Medicine [...] from bedside clinician. SIGNATURE: Bo Gandhi MD [facility] HISTORY PHYSICALon HISTORY PHYSICAL HNO ID: [id number] Author: OSIRIS ESCOBAR MD Service: Interventional Radiology [...] August 14, 2024 TIME: 4:57 PM PAGER: [facility] HISTORY PHYSICAL HNO ID: [id number] Author: DEBORAH NORMAN MD Service: Colorectal Author Type: Resident Type: H&P Filed: 08/14/2024 22:06 Note Text: Attestation signed by Deborah Norman MD at 08/14/2024 10:06 PM Attending Note As above. IR drainage of fluid collections. IV abx. Likely will need extermination supervisor IV abx. Attempt nonoperative management Signature: Deborah [...] 138 08/04/2018 1 (more content not included)... [facility] NURSING PROGon 08-14-2024 NURSING PROG HNO ID: [id number] Author: EMMANUEL LANDAVERDE, ALEXUS Service: Nursing Author Type: Registered Nurse Type: Nursing Progress Note Filed: 08/14/2024 19:58 Note Text: Transfer Note: PATIENT NAME: Mervat Grayson Patient Location: [place] [address] [address] Room: [place] [address] Patient transferred into room/unit PK32 in stable condition. Actions taken: No futher actions taken at this time. Will continue to monitor and check with patient. [facility] NURSING PROG HNO ID: [id number] Author: MINERVA BARTLETT, ALEXUS Service: PICC Team Author Type: Registered Nurse Type: Nursing Progress Note Filed: 08/14/2024 15:48 Note Text: Patient is scheduled for a drain placement this afternoon. Radiology will need an order for imaging guided drain placement. [facility] PT EDon 08-14-2024 PT ED HNO ID: [id number] Author: ML CLIFFORD, ALEXUS Service: Radiology Author Type: Registered Nurse Type: Patient Education Filed: 08/14/2024 17:02 Note Text: PATIENT EDUCATION TOPIC: PROCEDURE / SURGERY: Procedure/Surgery: Abscess Drain PATIENT NAME: Mervat Grayson PATIENT LOCATION: [facility] RADIOL* READINESS TO LEARN COGNITIVE ABILITY: Alert [...] REFERRAL (RECOMMENDATION): None Electronically Signed By: Ml Madsen [facility] PT panel Coag (PPP)on 2023 INR Coag (PPP) [Relative time] 1.2 {INR} Normal 0.9-1.3 [facility] Comment on above: Order Comment: Nazario brooks Type: BLOOD SPECIMEN Ordering Facility: [facility] Address: [address] [place] [address] Result Comment: Myrna min K Antagonist (VKA) Therapeutic Range: INR 2 to 3 (Target INR of 2.5) Note: For patients treated with VKA drugs, such as warfarin, the [place] [employer] 2012 Guideline recommends [...] GH, et al. Chest 2012, 141:7S-47S Jelena RA, et al. [facility] 2017, 70: 252-289 Performed By: #### 3 4528-0, 27817-3 #### [facility] CLIA [id number] [address] [place] [address] [place] PT Coag (PPP) [Time] 13.5 s High 9.7-13.0 [facility] Comment on above: Order Comment: Nazario brooks Type: BLOOD SPECIMEN Ordering Facility: [facility] Address: [address] [place] [address] Performed By: #### 3 4528-0, 04356-3 #### [facility] CLIA [id number] [address] [place] [id number] [place] SEPSIS LACTATE W/ REFLEX (IN ITIAL)on 08-14-2024 Lactate [Moles/Vol] 1.1 mmol/L Normal 0.0-2.0 [facility] Comment on above: Order Comment: Speci men Type: BLOOD SPECIMENOrdering Facility: [facility] Address: [address] [place] [address] Performed By: #### S LACTR ####[facility] [id number] [place] [id number] [facility] [place] TYPE + SCREENon 08-14-2024 ABO O Normal [facility] Comment on above: Order Comment: Speci men Type: BLOOD SPECIMENOrdering Facility: [facility] Address: [address] [place] [address] Performed By: #### T SCR ####[facility] [id number] [address] [place] Rh Nom (Bld) Positive Normal [facility] Comment on above: Order Comment: Speci men Type: BLOOD SPECIMENOrdering Facility: [facility] Address: [address] [place] [address] Performed By: #### T SCR ####[facility] [id number] [place] [id number] [facility] [place] TYPE AND SCREEN EXPIRATION 08/17/2024 23:59 Normal [facility] Comment on above: Order Comment: Speci men Type: BLOOD SPECIMENOrdering Facility: [facility] Address: [address] [place] [address] Performed By: #### T SCR ####[facility] [id number] [place] [id number] [place] aPTT PPPon 08-14-2024 aPTT Coag (PPP) [Time] 29.2 s Normal 23.0-32.4 [facility] Comment on above: Order Comment: Speci men Type: BLOOD SPECIMEN Ordering Facility: [facility] Address: [address] [place] [address] Performed By: #### 3 4528-0, 54781-3 #### [id number] [place] [address] [place] Basic metabolic 2000 panelon 08-13-2024 Anion gap [Moles/Vol] 11 mmol/L 8 - 15 mmol/L [facility] Calcium [Mass/Vol] 8.5 mg/dL 8.5 - 10. 2 mg/dL [facility] Chloride [Moles/Vol] 100 mmol/L 98 - 10 7 mmol/L [facility] CO2 [Moles/Vol] 27 mmol/L 22 - 30 mmol/L [facility] Creatinine [Mass/Vol] 0.91 mg/dL 0.73 - 1.22 mg/dL [facility] GFR/1.73 sq M.predicted among non-blacks MDRD (S/P/Bld) [Vol rate/Area] 90 mL/min/{1.73_m2} - PINF [facility] Comment on above: Estimated Glomerular Filtration Rate [...] [Mass/Vol] 94 mg/dL 74 - 99 mg/dL [facility] Comment on above: The [place] Diabete s Association (ADA) provides guidance for [...] Standards of Medical Care in Diabetes 2016, [place] Diabetes [employer]. Diabetes Care. 2016.39(Suppl 1). Interpretation and review of laboratory results Abnormal [facility] Potassium [Moles/Vol] 3.3 mmol/L Low 3.7 - 5.1 mmol/L [facility] Sodium [Moles/Vol] 138 mmol/L 136 - 144 mmol/L [facility] Urea nitrogen [Mass/Vol] 11 mg/dL 9 - 24 mg/dL [facility] Anion gap [Moles/Vol] 11 mmol/L Normal 8-15 [facility] Comment on above: Order Comment: Speci men Type: BLOOD SPECIMENOrdering Facility: [facility] Address: [address] [place] [address] Performed By: #### 2 4321-2 ####[facility]ORYCLIA [id number] [place] [address] [place] Calcium [Mass/Vol] 8.5 mg/dL Normal 8.5-10.2 [facility] Comment on above: Order Comment: Speci men Type: BLOOD SPECIMENOrdering Facility: [facility] Address: [address] [place] [address] Performed By: #### 2 4321-2 ####[facility]ORYCLIA [id number] [place] [address] [place] Chloride [Moles/Vol] 100 mmol/L Normal 98-107 [facility] Comment on above: Order Comment: Speci men Type: BLOOD SPECIMENOrdering Facility: [facility] Address: [address] [place] [address] Performed By: #### 2 4321-2 ####[facility]ORYCLIA [id number] [place] [address] [place] CO2 [Moles/Vol] 27 mmol/L Normal 22-30 [facility] Comment on above: Order Comment: Speci men Type: BLOOD SPECIMENOrdering Facility: [facility] Address: [address] [place] [address] Performed By: #### 2 4321-2 ####[facility]ORYCLIA [id number] [place] [address] [place] Creatinine [Mass/Vol] 0.91 mg/dL Normal 0.73-1.22 [facility] Comment on above: Order Comment: Speci men Type: BLOOD SPECIMENOrdering Facility: [facility] Address: [address] [place] [address] Performed By: #### 2 4321-2 ####[facility]ORYCLIA [id number] [place] [address] [place] Creatinine and Glomerular filtration rate.predicted panel (S/P/Bld) 90 mL/min/1.73m??? Normal >=60 [facility] Comment on above: Order Comment: Nazario todd Type: BLOOD SPECIMENOrdering Facility: [facility] Address: [address] [place] [address] Result Comment: Rebekah mated Glomerular Filtration Rate [...] actual GFR. Performed By: #### 2 4321-2 ####[facility]ORYCLIA [id number] [place] [address] [place] Glucose [Mass/Vol] 94 mg/dL Normal 74-99 [facility] Comment on above: Order Comment: Nazario todd Type: BLOOD SPECIMENOrdering Facility: [facility] Address: [address] [place] [address] Result Comment: The [place] Diabetes Association (ADA) provides guidance for cutoff [...] Standards of Medical Care in Diabetes 2016, [place] Diabetes Association. Diabetes Care. 2016.39(Suppl 1). Performed By: #### 2 4321-2 ####[facility]ORYCLIA [id number] [place] [address] [place] Potassium [Moles/Vol] 3.3 mmol/L Low 3.7-5.1 [facility] Comment on above: Order Comment: Speci men Type: BLOOD SPECIMENOrdering Facility: [facility] Address: [address] [place] [address] Performed By: #### 2 4321-2 ####[facility]ORYCLIA [id number] [place] [address] [place] Sodium [Moles/Vol] 138 mmol/L Normal 136-144 [facility] Comment on above: Order Comment: Speci men Type: BLOOD SPECIMENOrdering Facility: [facility] Address: [address] [place] [address] Performed By: #### 2 4321-2 ####[facility]ORYCLIA [id number] [place] [address] [place] Urea nitrogen [Mass/Vol] 11 mg/dL Normal 9-24 [facility] Comment on above: Order Comment: Speci men Type: BLOOD SPECIMENOrdering Facility: [facility] Address: [address] [place] [address] Performed By: #### 2 4321-2 ####[facility]ATORYCLIA [id number] [place] [address] [place] CBC panel Auto (Bld)on 08-13 Erythrocyte distribution width (RBC) [Ratio] 16.7 % High 11.5 - 15.0 % [facility] Hematocrit (Bld) [Volume fraction] 24.0 % Low 39.0 - 51.0 % [facility] Hemoglobin (Bld) [Mass/Vol] 7.3 g/dL Low 13.0 - 17.0 g/dL [facility] Interpretation and review of laboratory results Abnormal [facility] MCH (RBC) [Entitic mass] 29.3 pg 26.0 - 34.0 pg [facility] MCHC (RBC) [Mass/Vol] 30.4 g/dL Low 30.5 - 36.0 g/dL [facility] MCV (RBC) [Entitic vol] 96.4 fL 80.0 - 100.0 fL [facility] Nucleated RBC (Bld) [#/Vol] NINF [facility] Platelet mean volume (Bld) [Entitic vol] 10.1 fL 9.0 - 12.7 fL [facility] Platelets (Bld) [#/Vol] 634 10*3/uL High [facility] RBC (Bld) [#/Vol] 2.49 10*6/uL Low 4.20 - 6.0 0 m/uL [facility] WBC (Bld) [#/Vol] 13.68 10*3/uL High [facility] Erythrocyte distribution width (RBC) [Ratio] 16.7 % High 11.5-15.0 [facility] Comment on above: Order Comment: Speci men Type: BLOOD SPECIMENOrdering Facility: [facility] Address: [address] [place] [address] Performed By: #### 5 8410-2 ####[facility]ATORYCLIA [id number] [address] [place] Hematocrit (Bld) [Volume fraction] 24.0 % Low 39.0-51.0 [facility] Comment on above: Order Comment: Speci men Type: BLOOD SPECIMENOrdering Facility: [facility] Address: [address] [place] [address] Performed By: #### 5 8410-2 ####[facility]ATORYCLIA [id number] [place] [address] [place] Hemoglobin (Bld) [Mass/Vol] 7.3 g/dL Low 13.0-17.0 [facility] Comment on above: Order Comment: Speci men Type: BLOOD SPECIMENOrdering Facility: [facility] Address: [address] [place] [address] Performed By: #### 5 8410-2 ####[facility]ATORYCLIA [id number] [place] [address] [place] MCH (RBC) [Entitic mass] 29.3 pg Normal 26.0-34.0 [facility] Comment on above: Order Comment: Speci men Type: BLOOD SPECIMENOrdering Facility: [facility] Address: [address] [place] [address] Performed By: #### 5 8410-2 ####[facility]ATORYCLIA [id number] [address] MCHC (RBC) [Mass/Vol] 30.4 g/dL Low 30.5-36.0 [facility] Comment on above: Order Comment: Speci men Type: BLOOD SPECIMENOrdering Facility: [facility] Address: [address] [place] [address] Performed By: #### 5 8410-2 ####[facility] LABORATORYIA [id number] [address] MCV (RBC) [Entitic vol] 96.4 fL Normal 80.0-100.0 [facility] Comment on above: Order Comment: Speci men Type: BLOOD SPECIMENOrdering Facility: [facility] Address: [address] [place] [address] Performed By: #### 5 8410-2 ####[facility]ATORYCLIA [id number] [address] Nucleated RBC (Bld) [#/Vol] 10*3/uL Normal <0.01 [facility] Comment on above: Order Comment: Speci men Type: BLOOD SPECIMENOrdering Facility: [facility] Address: [address] [place] [address] Performed By: #### 5 8410-2 ####[facility] LABORATORYIA [id number] [address] Platelet mean volume (Bld) [Entitic vol] 10.1 fL Normal 9.0-12.7 [facility] Comment on above: Order Comment: Speci men Type: BLOOD SPECIMENOrdering Facility: [facility] Address: [address] [place], [place] [address] Performed By: #### 5 8410-2 ####[facility]ORATORYCLIA [id number] [place] [address] [place] Platelets (Bld) [#/Vol] 634 10*3/uL High 150-400 [facility] Comment on above: Order Comment: Speci men Type: BLOOD SPECIMENOrdering Facility: [facility] Address: [address] [place] [address] Performed By: #### 5 8410-2 ####[facility]ATORYCLIA [id number] [place] [address] [place] RBC (Bld) [#/Vol] 2.49 10*6/uL Low 4.20-6.[address] [facility] Comment on above: Order Comment: Speci men Type: BLOOD SPECIMENOrdering Facility: [facility] Address: [address] [place] [address] Performed By: #### 5 8410-2 ####[facility] LABORATORYIA [id number] [place] [address] [place] WBC (Bld) [#/Vol] 13.68 10*3/uL High 3.70-11.00 [facility] Comment on above: Order Comment: Speci men Type: BLOOD SPECIMENOrdering Facility: [facility] Address: [address] [place] [address] Performed By: #### 5 8410-2 ####[facility] LABORATORYIA [id number] [address] [place] CNOVon 08-13-2024 CNOV Normal [facility] CT ABD/PEL W IVCONon 024 CT ABD/PEL W IVCON Normal [facility] CT Abdomen and Pelvis W cont rast Ivelisse 08-13-2024 IMPRESSION: Postsurgical changes of right hemicolectomy with 3 fluid collections in the pelvis with enhancing dos santos, suspicious for abscesses. The right lower quadrant 1 is located immediately adjacent to the ileocolonic anastomosis and contains foci of air, suspicious for leak. 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PSCB Transcribe Date/Time: Aug 13 2024 3:35P Dictated by : FLORENTINO HUBBARD MD This examination was interpreted and the report reviewed and electronically signed by: FLORENTINO HUBBARD MD on Aug 13 2024 3:46PM [facility] DIVISION OF RADIOLOGY * * *Final Report* * * DATE OF EXAM: Aug 13 2024 3:20PM [facility] 0530 - CT ABD/PEL [...] No additional findings. DIVISION OF RADIOLOGY Provider, [facility] - 08/13/2024 * * *Final Report* * * DATE OF EXAM: Aug 13 2024 3:20PM [facility] 0530 - CT ABD/PEL [...] contains foci of air, suspicious for leak. 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PSCB Transcribe Date/Time: Aug 13 2024 3:35P Dictated by : FLORENTINO HUBBARD MD This examination was interpreted and the report reviewed and electronically signed by: FLORENTINO HUBBARD MD on Aug 13 2024 3:46PM EST [facility] Radiology Study observation (narrative) [facility] CT Abdomen and Pelvis W cont rast IVOrdered By: Ccf Provider [facility]-13-2024 [facility] CNPNon 08-04-2024 CNPN Normal [facility] [id number] 07-29-2024 [id number] HNO ID: [id number] Author: GENI BAEZ RN Service: ? Author Type: Registered Nurse Type: [id number] Filed: 07/29/2024 16:29 Note Text: Xarelto start 07/30 Normal [facility] Basic metabolic 2000 panelon 07-29-2024 Anion gap [Moles/Vol] 12 mmol/L Normal 8-15 [facility] Comment on above: Order Comment: Speci men Type: BLOOD SPECIMEN [facility] Address: [address] [place] [address] Performed By: #### 2 4321-2 #### [facility] CLIA [id number] [address] [place] [address] [place] Calcium [Mass/Vol] 8.3 mg/dL Low 8.5-10.2 [facility] Comment on above: Order Comment: Speci men Type: BLOOD SPECIMEN [facility] Address: [address] [place] [address] Performed By: #### 2 4321-2 #### [facility] CLIA [id number] [address] [place] [address] [place] Chloride [Moles/Vol] 103 mmol/L Normal 98-107 [facility] Comment on above: Order Comment: Speci men Type: BLOOD SPECIMEN [facility] Address: [address] [place] [address] Performed By: #### 2 4321-2 #### [facility] CLIA [id number] [address] [place] [address] [place] CO2 [Moles/Vol] 25 mmol/L Normal 22-30 [facility] Comment on above: Order Comment: Speci men Type: BLOOD SPECIMEN [facility] Address: [address] [place] [address] Performed By: #### 2 4321-2 #### [facility] CLIA [id number] [address] [place] [address] [place] Creatinine [Mass/Vol] 0.83 mg/dL Normal 0.73-1.22 [facility] Comment on above: Order Comment: Speci men Type: BLOOD SPECIMEN [facility] Address: [address] [place] [address] Performed By: #### 2 4321-2 #### [facility] CLIA [id number] [address] [place] [address] [place] Creatinine and Glomerular filtration rate.predicted panel (S/P/Bld) 94 mL/min/1.73m??? Normal >=60 [facility] Comment on above: Order Comment: Nazario brooks Type: BLOOD SPECIMEN [facility] Address: [address] [place] [address] Result Comment: Rebekah mated Glomerular Filtration Rate [...] GFR. Performed By: #### 2 4321-2 #### [facility] CLIA [id number] [address] [place] [address] [place] Glucose [Mass/Vol] 86 mg/dL Normal 74-99 [facility] Comment on above: Order Comment: Nazario brooks Type: BLOOD SPECIMEN [facility] Address: [address] [place] [address] Result Comment: The [place] Diabetes Association (ADA) provides guidance for cutoff [...] Standards of Medical Care in Diabetes 2016, [place] [employer]. Diabetes Care. 2016.39(Suppl 1). Performed By: #### 2 4321-2 #### [facility] CLIA [id number] [address] [place] [address] [place] Potassium [Moles/Vol] 3.4 mmol/L Low 3.7-5.1 [facility] Comment on above: Order Comment: Nazario brooks Type: BLOOD SPECIMEN Ordering Facility: [facility] Address: [address] [place] [address] Performed By: #### 2 4321-2 #### [facility] CLIA [id number] [address] [place] [address] [place] Sodium [Moles/Vol] 140 mmol/L Normal 136-144 [facility] Comment on above: Order Comment: Speci men Type: BLOOD SPECIMEN Ordering Facility: [facility] Address: [address] [place] [address] Performed By: #### 2 4321-2 #### [facility] CLIA [id number] [address] [place] [address] [place] Urea nitrogen [Mass/Vol] 12 mg/dL Normal 9-24 [facility] Comment on above: Order Comment: Speci men Type: BLOOD SPECIMEN Ordering Facility: [facility] Address: [address] [place] [address] Performed By: #### 2 4321-2 #### [facility] CLIA [id number] [address] [place] [address] [place] CBC panel Auto (Bld)on 07-29 Erythrocyte distribution width (RBC) [Ratio] 15.5 % High 11.5-15.0 [facility] Comment on above: Order Comment: Speci men Type: BLOOD SPECIMEN Ordering Facility: [facility] Address: [address] [place] [address] Performed By: #### 5 8410-2 #### [facility] CLIA [id number] [address] [place] [address] [place] Hematocrit (Bld) [Volume fraction] 22.3 % Low 39.0-51.0 [facility] Comment on above: Order Comment: Speci men Type: BLOOD SPECIMEN Ordering Facility: [facility] Address: [address] [place] [address] Performed By: #### 5 8410-2 #### [facility] CLIA [id number] [address] [place] [address] [place] Hemoglobin (Bld) [Mass/Vol] 7.2 g/dL Low 13.0-17.0 [facility] Comment on above: Order Comment: Speci men Type: BLOOD SPECIMEN Ordering Facility: [facility] Address: [address] [place] [address] Performed By: #### 5 8410-2 #### [facility] CLIA [id number] [address] [place] [address] [place] [facility] MCH (RBC) [Entitic mass] 31.3 pg Normal 26.0-34.0 [facility] Comment on above: Order Comment: Speci men Type: BLOOD SPECIMEN Ordering Facility: [facility] Address: [address] [place] [address] Performed By: #### 5 8410-2 #### [facility] CLIA [id number] [address] [place] [address] [place] MCHC (RBC) [Mass/Vol] 32.3 g/dL Normal 30.5-36.0 [facility] Comment on above: Order Comment: Speci men Type: BLOOD SPECIMEN Ordering Facility: [facility] Address: [address] [place] [address] Performed By: #### 5 8410-2 #### [facility] CLIA [id number] [address] [place] [place] [address] [place] MCV (RBC) [Entitic vol] 97.0 fL Normal 80.0-100.0 [facility] Comment on above: Order Comment: Speci men Type: BLOOD SPECIMEN Ordering Facility: [facility] Address: [address] [place] [address] Performed By: #### 5 8410-2 #### [facility] CLIA [id number] [address] [place] [address] [place] Nucleated RBC (Bld) [#/Vol] 10*3/uL Normal <0.01 [facility] Comment on above: Order Comment: Speci men Type: BLOOD SPECIMEN Ordering Facility: [facility] Address: [address] [place] [address] Performed By: #### 5 8410-2 #### [facility] CLIA [id number] [address] [place] [address] [place] Platelet mean volume (Bld) [Entitic vol] 10.3 fL Normal 9.0-12.7 [facility] Comment on above: Order Comment: Speci men Type: BLOOD SPECIMEN Ordering Facility: [facility] Address: [address] [place] [address] Performed By: #### 5 8410-2 #### [facility] CLIA [id number] [address] [place] [address] [facility] [place] Platelets (Bld) [#/Vol] 320 10*3/uL Normal 150-400 [facility] Comment on above: Order Comment: Speci men Type: BLOOD SPECIMEN Ordering Facility: [facility] Address: [address] [place] [address] Performed By: #### 5 8410-2 #### [facility] CLIA [id number] [address] [place] [address] [place] RBC (Bld) [#/Vol] 2.30 10*6/uL Low 4.20-6.00 [facility] Comment on above: Order Comment: Speci men Type: BLOOD SPECIMEN Ordering Facility: [facility] Address: [address] [place] [address] Performed By: #### 5 8410-2 #### [facility] CLIA [id number] [address] [place] [address] [place] WBC (Bld) [#/Vol] 11.08 10*3/uL High 3.70-11.00 [facility] Comment on above: Order Comment: Speci men Type: BLOOD SPECIMEN Ordering Facility: [facility] Address: [address] [place] [address] Performed By: #### 5 8410-2 #### [facility] CLIA [id number] [place] [address] [place] CNDSon 07-29-2024 CNDS HNO ID: [id number] Author: DEBORAH NORMAN MD Service: Colorectal Author [...] Mervat Grayson is a 73 year old [facility] notable for PE (xarelto), RA (on prednisone [...] [id number] [place] [address] - [address] - [phone] [facility] [address] [place] [id number] ondansetron 4 mg tablet oxyCODONE IR 5 mg immediate release tablet rivaroxaban 20 mg tablet YOU MAY RESUME YOUR ANTICOAGULATION 07/30 FUTURE APPOINTMENTS: Future Appointments Date Time Provider Department Center 08/04/2024 8:15 AM ARRIVAL TIME RADIOLOGY ROSA Koenig 08/04/2024 10:30 AM LAB [facility] [place] 08/11 (more content not included)... Normal [facility] Basic metabolic 2000 panelon 07-28-2024 Anion gap [Moles/Vol] 9 mmol/L Normal 8-15 [facility] Comment on above: Order Comment: Speci men Type: BLOOD SPECIMENOrdering Facility: [facility] Address: [address] [place] [address] Performed By: #### 6 462-6 #### [facility] CLIA [id number] [address] [place] [address] [place] Calcium [Mass/Vol] 8.3 mg/dL Low 8.5-10.2 [facility] Comment on above: Order Comment: Speci men Type: BLOOD SPECIMENOrdering Facility: [facility] Address: [address] [place] [address] Performed By: #### 6 462-6 #### [facility] CLIA [id number] [address] [place] [address] [place] Chloride [Moles/Vol] 104 mmol/L Normal 98-107 [facility] Comment on above: Order Comment: Speci men Type: BLOOD SPECIMENOrdering Facility: [facility] Address: [address] [place] [address] Performed By: #### 6 462-6 #### [facility] CLIA [id number] [address] [place] [address] [place] CO2 [Moles/Vol] 27 mmol/L Normal 22-30 [facility] Comment on above: Order Comment: Speci men Type: BLOOD SPECIMENOrdering Facility: [facility] Address: [address] [place] [address] Performed By: #### 6 462-6 #### [facility] CLIA [id number] [address] [place] [address] [place] Creatinine [Mass/Vol] 0.94 mg/dL Normal 0.73-1.22 [facility] Comment on above: Order Comment: Speci men Type: BLOOD SPECIMENOrdering Facility: [facility] Address: [address] [place] [address] Performed By: #### 6 462-6 #### [facility] CLIA [id number] [address] [place] [address] [place] Creatinine and Glomerular filtration rate.predicted panel (S/P/Bld) 87 mL/min/1.73m??? Normal >=60 [facility] Comment on above: Order Comment: Speci men Type: BLOOD SPECIMENOrdering Facility: [facility] Address: [address] [place] [address] Result Comment: Rebekah mated Glomerular Filtration Rate [...] GFR. Performed By: #### 6 462-6 #### [facility] CLIA [id number] [address] [place] [address] [place] Glucose [Mass/Vol] 91 mg/dL Normal 74-99 [facility] Comment on above: Order Comment: Speci men Type: BLOOD SPECIMENOrdering Facility: [facility] Address: [address] [place] [address] Result Comment: The [place] Diabetes [employer] (ADA) provides guidance for cutoff [...] Standards of Medical Care in Diabetes 2016, [place] [employer]. Diabetes Care. 2016.39(Suppl 1). Performed By: #### 6 462-6 #### [facility] CLIA [id number] [address] [place] [address] [place] Potassium [Moles/Vol] 3.8 mmol/L Normal 3.7-5.1 [facility] Comment on above: Order Comment: Speci men Type: BLOOD SPECIMENOrdering Facility: [facility] Address: [address] [place] [address] Performed By: #### 6 462-6 #### [facility] CLIA [id number] [address] [place] [address] [place] Sodium [Moles/Vol] 140 mmol/L Normal 136-144 [facility] Comment on above: Order Comment: Speci men Type: BLOOD SPECIMENOrdering Facility: [facility] Address: [address] [place] [address] Performed By: #### 6 462-6 #### [facility] CLIA [id number] [address] [place] [address] [place] Urea nitrogen [Mass/Vol] 17 mg/dL Normal 9-24 [facility] Comment on above: Order Comment: Speci men Type: BLOOD SPECIMENOrdering Facility: [facility] Address: [address] [place] [address] Performed By: #### 6 462-6 #### [facility] CLIA [id number] [address] [place], [place] [address], [place] [address] [place] CBC panel Auto (Bld)on 07-28 Erythrocyte distribution width (RBC) [Ratio] 15.5 % High 11.5-15.0 [facility] Comment on above: Order Comment: Speci men Type: BLOOD SPECIMEN Ordering Facility: [facility] Address: [address] [place] [address] Performed By: #### 3 4528-0, 44317-2 #### [facility] CLIA [id number] [address] [place] [address] [place] Hematocrit (Bld) [Volume fraction] 23.3 % Low 39.0-51.0 [facility] Comment on above: Order Comment: Speci men Type: BLOOD SPECIMEN Ordering Facility: [facility] Address: [address] [place] [address] Performed By: #### 3 4528-0, 53850-6 #### [facility] CLIA [id number] [address] [place] [address] [place] Hemoglobin (Bld) [Mass/Vol] 7.7 g/dL Low 13.0-17.0 [facility] Comment on above: Order Comment: Speci men Type: BLOOD SPECIMEN Ordering Facility: [facility] Address: [address] [place] [address] Performed By: #### 3 4528-0, 95552-6 #### [facility] CLIA [id number] [address] [place] [address] [place] MCH (RBC) [Entitic mass] 31.8 pg Normal 26.0-34.0 [facility] Comment on above: Order Comment: Speci men Type: BLOOD SPECIMEN Ordering Facility: [facility] Address: [address] [place] [address] Performed By: #### 3 4528-0, 82637-3 #### [facility] CLIA [id number] [address] [place] [address] [place] MCHC (RBC) [Mass/Vol] 33.0 g/dL Normal 30.5-36.0 [facility] Comment on above: Order Comment: Speci men Type: BLOOD SPECIMEN Ordering Facility: [facility] Address: [facility] [place] [address] Performed By: #### 3 4528-0, 45190-6 #### [facility] CLIA [id number] [address] [place] [address] [place] MCV (RBC) [Entitic vol] 96.3 fL Normal 80.0-100.0 [facility] Comment on above: Order Comment: Speci men Type: BLOOD SPECIMEN Ordering Facility: [facility] Address: [address] [place] [address] Performed By: #### 3 4528-0, 27419-1 #### [facility] CLIA [id number] [address] [place] [address] [place] Nucleated RBC (Bld) [#/Vol] 10*3/uL Normal <0.01 [facility] Comment on above: Order Comment: Speci men Type: BLOOD SPECIMEN Ordering Facility: [facility] Address: [address] [place] [address] Performed By: #### 3 4528-0, #### [facility] CLIA [id number] [address] [place] [address] [place] Platelet mean volume (Bld) [Entitic vol] 10.3 fL Normal 9.0-12.7 [facility] Comment on above: Order Comment: Speci men Type: BLOOD SPECIMEN Ordering Facility: [facility] Address: [address] [place] [address] Performed By: #### 3 4528-0, 42025-3 #### [facility] CLIA [id number] [address] [place] [address] [place] Platelets (Bld) [#/Vol] 274 10*3/uL Normal 150-400 [facility] Comment on above: Order Comment: Speci men Type: BLOOD SPECIMEN Ordering Facility: [facility] Address: [address] [place] [address] Performed By: #### 3 4528-0, 39475-2 #### [facility] CLIA [id number] [place] [address] [place] RBC (Bld) [#/Vol] 2.42 10*6/uL Low 4.20-6.00 [facility] Comment on above: Order Comment: Speci men Type: BLOOD SPECIMEN Ordering Facility: [facility] Address: [address] [place] [address] Performed By: #### 3 4528-0, 27270-0 #### [facility] CLIA [id number] [place] [address] [place] WBC (Bld) [#/Vol] 12.39 10*3/uL High 3.70-11.00 [facility] Comment on above: Order Comment: Speci men Type: BLOOD SPECIMEN Ordering Facility: [facility] Address: [address] [place] [address] Performed By: #### 3 4528-0, 65564-8 #### [facility] CLIA [id number] [address] [place] [address] THERAPY NTon 07-28-2024 THERAPY NT HNO ID: [id number] Author: MILTON MAYA OT/L Service: Occupational Therapy Author Type: Occupational Therapist Type: Therapy (PT/OT/Speech/Resp) Filed: 07/28/2024 15:23 Note Text: Occupational Therapy Treatment Summary SERVICE DATE: 07/28/2024 SERVICE TIME: 1434 to 1512 ROOM: [place] [address] OT 6 Clicks Score: 20 DISCHARGE RECOMMENDATIONS [...] Toilet, Hand Held Shower, Elevated Toilet Seat, Link Machine Operator, Shower Chair PRIOR FUNCTIONAL LEVEL Within Functional Limits Patient reports previous indepedence with ADLs, shares IADLs with spouse, ambulates without AD, +drives. SUBJECTIVE Patient receptive and agreeable to OT tx tasks. COGNITION Responsiveness: Alert, Awake Follows Commands: 2-step Commands THERAPY DIAGNOSIS Reduced mobility-other, Decreased activities of daily living (ADL) TREATMENT INTERVENTIONS Self Shelter Management (08810) Timed Code Treatment (minutes): 38 Skilled Treatment Time (minutes): 38 TRAINING AND EDUCATION PROVIDED Activity Adaptation/Compensatory Strategies, Adaptive Equipment/DME, Benefits of In-Hospital Mobility, Discharge Planning, Energy Conservation, Expected Functional Level, Role of Occupational Therapy, Transfer - Sit to Stand, Functional Mobility Involving ADLs, Grooming Tasks, Identification of Systems of Support, Positioning, Precautions/Restriction s, Standing Balance to Improve Lipscomb with ADLs/Self-Care, Toileting , Transfer - Toilet/Commode, [...] Dressing Training, Standing Tolerance SIGNATURE: Milton Maya OT/L PATIENT NAME: Mervat Grayson DATE: July 28, 2024 TIME: 3:22 PM Normal [facility] THERAPY NT HNO ID: [id number] Author: JENNIFER BRISENO PT Service: Physical Therapy Author Type: Physical Therapist Type: Therapy (PT/OT/Speech/Resp) Filed: 07/28/2024 09:33 Note Text: Physical Therapy Treatment Summary SERVICE DATE: 07/28/2024 SERVICE TIME: 845 to 922 ROOM: [place] [address] PT 6 Clicks Score: 22 DISCHARGE RECOMMENDATIONS [...] Toilet, Hand Held Shower, Elevated Toilet Seat, 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 SUBJECTIVE Patient pleasant and agreeable to PT evaluation THERAPY DIAGNOSIS Reduced mobility-other, Decreased activities of daily living (ADL) TREATMENT INTERVENTIONS Therapeutic Activity (46695), Gait Training (58731) Timed Code Treatment (minutes): 27 Skilled Treatment [...] Supine To Sit: Minimal Assistance, Additional Information DESIGN LEADER for uprighting of trunk Scooting: Stand By [...] Tolerance, Walker Training, Sitting Balance SIGNATURE: Jennifer Briseno, PT PATIENT NAME: Mervat Grayson DATE: July 28, 2024 TIME: 9:33 AM [facility] ALLIED HEALTH 07-27-2024 ALLIED HEALTH HNO ID: [id number] Author: LINK WYATT Chaplain Service: Spiritual Care Author Type: Type: Allied Health Filed: 07/27/2024 09:58 Note Text: SPIRITUAL CARE PROGRESS NOTE SERVICE DATE: 07/27/2024 SERVICE TIME: 08 I met this patient and I listened to his confession, granted him absolution, did the sacrament of the sick, gave him Holy Communion and blessed him. To contact the Spiritual Care Department: Please call [phone]. SIGNATURE: Chaplain Anel PATIENT NAME: Mervat Grayson DATE: July 27, 2024 TIME: 9:56 AM PAGER/CONTACT #: [phone] Normal [facility] Basic metabolic 2000 panelon 07-27-2024 Anion gap [Moles/Vol] 8 mmol/L Normal 8-15 [facility] Comment on above: Order Comment: Speci men Type: BLOOD SPECIMENOrdering Facility: [facility] Address: [address] [place] [address] Performed By: #### 6 462-6 #### [facility] CLIA [id number] [address] [place] [address] [place] Calcium [Mass/Vol] 8.0 mg/dL Low 8.5-10.2 [facility] Comment on above: Order Comment: Speci men Type: BLOOD SPECIMENOrdering Facility: [facility] Address: [address] [place] [address] Performed By: #### 6 462-6 #### [facility] CLIA [id number] [address] [place] [address] [place] Chloride [Moles/Vol] 103 mmol/L Normal 98-107 [facility] Comment on above: Order Comment: Speci men Type: BLOOD SPECIMENOrdering Facility: [facility] Address: [address] [place] [address] Performed By: #### 6 462-6 #### [facility] CLIA [id number] [address] [place] [address] [place] CO2 [Moles/Vol] 27 mmol/L Normal 22-30 [facility] Comment on above: Order Comment: Speci men Type: BLOOD SPECIMENOrdering Facility: [facility] Address: [address] [place] [address] Performed By: #### 6 462-6 #### [facility] CLIA [id number] [address] [place] [address] [place] Creatinine [Mass/Vol] 1.08 mg/dL Normal 0.73-1.22 [facility] Comment on above: Order Comment: Nazario brooks Type: BLOOD SPECIMENOrdering Facility: [facility] Address: [address] [place] [address] Performed By: #### 6 462-6 #### [facility] CLIA [id number] [address] [place] [address] [place] Creatinine and Glomerular filtration rate.predicted panel (S/P/Bld) 73 mL/min/1.73m??? Normal >=60 [facility] Comment on above: Order Comment: Nazario brooks Type: BLOOD SPECIMENOrdering Facility: [facility] Address: [address] [place] [address] Result Comment: Rebekah mated Glomerular Filtration Rate [...] GFR. Performed By: #### 6 462-6 #### [facility] CLIA [id number] [address] [place] [address] [place] Glucose [Mass/Vol] 90 mg/dL Normal 74-99 [facility] Comment on above: Order Comment: Nazario brooks Type: BLOOD SPECIMENOrdering Facility: [facility] Address: [address] [place] [address] Result Comment: The [place] Diabetes Association (ADA) provides guidance for cutoff [...] Standards of Medical Care in Diabetes 2016, [place] [employer]. Diabetes Care. 2016.39(Suppl 1). Performed By: #### 6 462-6 #### [facility] CLIA [id number] [address] [place] [address] [place] Potassium [Moles/Vol] 3.7 mmol/L Normal 3.7-5.1 [facility] Comment on above: Order Comment: Speci men Type: BLOOD SPECIMENOrdering Facility: [facility] Address: [address] [place] [address] Performed By: #### 6 462-6 #### [facility] CLIA [id number] [address] [place] [address] [place] Sodium [Moles/Vol] 138 mmol/L Normal 136-144 [facility] Comment on above: Order Comment: Speci men Type: BLOOD SPECIMENOrdering Facility: [facility] Address: [address] [place] [address] Performed By: #### 6 462-6 #### [facility] CLIA [id number] [address] [place] [address] [place] Urea nitrogen [Mass/Vol] 20 mg/dL Normal 9-24 [facility] Comment on above: Order Comment: Speci men Type: BLOOD SPECIMENOrdering Facility: [facility] Address: [address] [place] [address] Performed By: #### 6 462-6 #### [facility] CLIA [id number] [address] [place] [address] [place] CBC panel Auto (Bld)on 07-27 Erythrocyte distribution width (RBC) [Ratio] 15.6 % High 11.5-15.0 [facility] Comment on above: Order Comment: Speci men Type: BLOOD SPECIMENOrdering Facility: [facility] Address: [address] [place] [address] Performed By: #### 6 462-6 #### [facility] CLIA [id number] [address] [place] [address] [place] Hematocrit (Bld) [Volume fraction] 23.0 % Low 39.0-51.0 [facility] Comment on above: Order Comment: Speci men Type: BLOOD SPECIMENOrdering Facility: [facility] Address: [address] [place] [address] Performed By: #### 6 462-6 #### [facility] CLIA [id number] [address] [place] [address] [place] Hemoglobin (Bld) [Mass/Vol] 7.4 g/dL Low 13.0-17.0 [facility] Comment on above: Order Comment: Speci men Type: BLOOD SPECIMENOrdering Facility: [facility] Address: [address] [place] [address] Performed By: #### 6 462-6 #### [facility] CLIA [id number] [address] [place] [address] [place] MCH (RBC) [Entitic mass] 31.4 pg Normal 26.0-34.0 [facility] Comment on above: Order Comment: Speci men Type: BLOOD SPECIMENOrdering Facility: [facility] Address: [address] [place] [address] Performed By: #### 6 462-6 #### [facility] CLIA [id number] [address] [place] [address] [place] MCHC (RBC) [Mass/Vol] 32.2 g/dL Normal 30.5-36.0 [facility] Comment on above: Order Comment: Speci men Type: BLOOD SPECIMENOrdering Facility: [facility] Address: [address] [place] [address] Performed By: #### 6 462-6 #### [facility] CLIA [id number] [address] [place] [address] [place] MCV (RBC) [Entitic vol] 97.5 fL Normal 80.0-100.0 [facility] Comment on above: Order Comment: Speci men Type: BLOOD SPECIMENOrdering Facility: [facility] Address: [address] [place] [address] Performed By: #### 6 462-6 #### [facility] CLIA [id number] [address] [place] [address] [place] Nucleated RBC (Bld) [#/Vol] 10*3/uL Normal <0.01 [facility] Comment on above: Order Comment: Speci men Type: BLOOD SPECIMENOrdering Facility: [facility] Address: [address] [place] [address] Performed By: #### 6 462-6 #### [facility] CLIA [id number] [address] [place] [address] [place] Platelet mean volume (Bld) [Entitic vol] 10.3 fL Normal 9.0-12.7 [facility] Comment on above: Order Comment: Speci men Type: BLOOD SPECIMENOrdering Facility: [facility] Address: [address] [place] [address] Performed By: #### 6 462-6 #### [facility] CLIA [id number] [address] [place] [address] [place] Platelets (Bld) [#/Vol] 229 10*3/uL Normal 150-400 [facility] Comment on above: Order Comment: Speci men Type: BLOOD SPECIMENOrdering Facility: [facility] Address: [address] [place] [address] Performed By: #### 6 462-6 #### [facility] CLIA [id number] [address] [place] [address] [place] RBC (Bld) [#/Vol] 2.36 10*6/uL Low 4.20-6.00 [facility] Comment on above: Order Comment: Speci men Type: BLOOD SPECIMENOrdering Facility: [facility] Address: [address] [place] [address] Performed By: #### 6 462-6 #### [facility] CLIA [id number] [address] [place], [place] [address] [id number] [place] WBC (Bld) [#/Vol] 10.70 10*3/uL Normal 3.70-11.00 [facility] Comment on above: Order Comment: Speci men Type: BLOOD SPECIMENOrdering Facility: [facility] Address: [address] [place] [address] Performed By: #### 6 462-6 #### [facility] CLIA [id number] [address] [place], [place] [address] [address] [place] NURSING PROGon 07-27-2024 NURSING PROG HNO ID: [id number] Author: MARY ISRAEL, ALEXUS Service: ? Author Type: Registered Nurse Type: Nursing Progress Note Filed: 07/27/2024 06:42 Note Text: 2207: PK1-06: Patient has had 2 BMs in the last hour. Do you want to send a sample? - Mary [id number] 2209: Alvina Teran MD: let's hold off on the sample for now, I think his bowels are just waking up Information passed on to day shift RN. Normal [facility] THERAPY NTon 07-27-2024 THERAPY NT HNO ID: [id number] Author: TRACEY GIRON, OTR/L, OTD Service: Occupational Therapy Author Type: Occupational Therapist Type: Therapy (PT/OT/Speech/Resp) Filed: 07/27/2024 15:25 Note Text: Occupational Therapy Treatment Summary SERVICE DATE: 07/27/2024 SERVICE TIME: 1431 to 1510 ROOM: [place] [address] OT 6 Clicks Score: 20 DISCHARGE RECOMMENDATIONS [...] Toilet, Hand Held Shower, Elevated Toilet Seat, 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 SUBJECTIVE I want to shave! COGNITION Responsiveness: Alert, Awake Follows Commands: 2-step Commands THERAPY DIAGNOSIS Reduced mobility-other, Decreased activities of daily living (ADL) TREATMENT INTERVENTIONS Self Shelter Management (89540) Timed Code Treatment (minutes): 39 Skilled Treatment Time (minutes): 39 TRAINING AND EDUCATION PROVIDED Activity Adaptation/Compensatory Strategies, Adaptive Equipment/DME, Benefits of In-Hospital Mobility, Discharge Planning, Energy Conservation, Expected Functional Level, Role of Occupational Therapy, Transfer - Sit to Stand, Functional Mobility Involving ADLs, Grooming Tasks, Identification of Systems of Support, Positioning, Precautions/Restriction s, Standing Balance to Improve Lipscomb with ADLs/Self-Care, Toileting , Transfer - Toilet/Commode, [...] Training, Dressing Training, Standing Tolerance SIGNATURE: VERN Patel OTD PATIENT NAME: Mervat Grayson DATE: July 27, 2024 TIME: 3:25 PM [facility] ALLIED HEALTH 07-26-2024 ALLIED HEALTH HNO ID: [id number] Author: FABRICIO LAL RT(R) Service: Radiology Author [...] PATIENT 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 WITH AN 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2 mg/dL Low 8.5-10.2 [facility] Comment on above: Order Comment: Speci men Type: BLOOD SPECIMEN [facility] Address: [address] [place] [address] Performed By: #### 2 4321-2 #### [facility] CLIA [id number] [address] [place] [address] [place] Chloride [Moles/Vol] 106 mmol/L Normal 98-107 [facility] Comment on above: Order Comment: Speci men Type: BLOOD SPECIMEN [facility] Address: [address] [place] [address] Performed By: #### 2 4321-2 #### [facility] CLIA [id number] [address] [place] [address] [place] CO2 [Moles/Vol] 29 mmol/L Normal 22-30 [facility] Comment on above: Order Comment: Speci men Type: BLOOD SPECIMEN [facility] Address: [address] [place] [address] Performed By: #### 2 4321-2 #### [facility] CLIA [id number] [address] [place] [address] [place] Creatinine [Mass/Vol] 1.18 mg/dL Normal 0.73-1.22 [facility] Comment on above: Order Comment: Speci men Type: BLOOD SPECIMEN [facility] Address: [address] [place] [address] Performed By: #### 2 4321-2 #### [facility] CLIA [id number] [address] [place] [address] [place] Creatinine and Glomerular filtration rate.predicted panel (S/P/Bld) 66 mL/min/1.73m??? Normal >=60 [facility] Comment on above: Order Comment: Nazario brooks Type: BLOOD SPECIMEN [facility] Address: [address] [place] [address] Result Comment: Rebekah mated Glomerular Filtration Rate [...] GFR. Performed By: #### 2 4321-2 #### [facility] CLIA [id number] [place] [address] [place] Glucose [Mass/Vol] 95 mg/dL Normal 74-99 [facility] Comment on above: Order Comment: Nazario brooks Type: BLOOD SPECIMEN [facility] Address: [address] [place] [address] Result Comment: The [place] Diabetes Association (ADA) provides guidance for cutoff [...] Standards of Medical Care in Diabetes 2016, [place] [employer]. Diabetes Care. 2016.39(Suppl 1). Performed By: #### 2 4321-2 #### [facility] CLIA [id number] [place] [address] [place] Potassium [Moles/Vol] 3.6 mmol/L Low 3.7-5.1 [facility] Comment on above: Order Comment: Nazario brooks Type: BLOOD SPECIMEN [facility] Address: [address] [place] [address] Performed By: #### 2 4321-2 #### [facility] CLIA [id number] [address] [place] [address] [place] Sodium [Moles/Vol] 142 mmol/L Normal 136-144 [facility] Comment on above: Order Comment: Speci men Type: BLOOD SPECIMEN [facility] Address: [address] [place] [address] Performed By: #### 2 4321-2 #### [facility] CLIA [id number] [address] [place] [address] [place] Urea nitrogen [Mass/Vol] 18 mg/dL Normal 9-24 [facility] Comment on above: Order Comment: Speci men Type: BLOOD SPECIMEN [facility] Address: [address] [place] [address] Performed By: #### 2 4321-2 #### [facility] CLIA [id number] [address] [place] [address] [place] CBC panel Auto (Bld)on 07-26 Erythrocyte distribution width (RBC) [Ratio] 15.8 % High 11.5-15.0 [facility] Comment on above: Order Comment: Speci men Type: BLOOD SPECIMEN [facility] Address: [address] [place] [address] Performed By: #### 2 4321-2 #### [facility] CLIA [id number] [address] [place] [address] [place] Hematocrit (Bld) [Volume fraction] 24.5 % Low 39.0-51.0 [facility] Comment on above: Order Comment: Speci men Type: BLOOD SPECIMEN [facility] Address: [address] [place] [address] Performed By: #### 2 4321-2 #### [facility] CLIA [id number] [address] [place] [address] [place] Hemoglobin (Bld) [Mass/Vol] 8.0 g/dL Low 13.0-17.0 [facility] Comment on above: Order Comment: Speci men Type: BLOOD SPECIMEN [facility] Address: [address] [place] [address] Performed By: #### 2 4321-2 #### [facility] CLIA [id number] [address] [place] [address] [place] MCH (RBC) [Entitic mass] 31.6 pg Normal 26.0-34.0 [facility] Comment on above: Order Comment: Speci men Type: BLOOD SPECIMEN [facility] Address: [address] [place] [address] Performed By: #### 2 4321-2 #### [facility] CLIA [id number] [address] [place] [address] [place] MCHC (RBC) [Mass/Vol] 32.7 g/dL Normal 30.5-36.0 [facility] Comment on above: Order Comment: Speci men Type: BLOOD SPECIMEN [facility] Address: [address] [place] [address] Performed By: #### 2 4321-2 #### [facility] CLIA [id number] [address] [place] [address] [place] MCV (RBC) [Entitic vol] 96.8 fL Normal 80.0-100.0 [facility] Comment on above: Order Comment: Speci men Type: BLOOD SPECIMEN [facility] Address: [address] [place] [address] Performed By: #### 2 4321-2 #### [facility] CLIA [id number] [address] [place] [address] [place] Nucleated RBC (Bld) [#/Vol] 10*3/uL Normal <0.01 [facility] Comment on above: Order Comment: Speci men Type: BLOOD SPECIMEN [facility] Address: [address] [place] [address] Performed By: #### 2 4321-2 #### [facility] CLIA [id number] [address] [place] [address] [place] Platelet mean volume (Bld) [Entitic vol] 10.5 fL Normal 9.0-12.7 [facility] Comment on above: Order Comment: Speci men Type: BLOOD SPECIMEN [facility] Address: [address] [place] [address] Performed By: #### 2 4321-2 #### [facility] CLIA [id number] [address] [place] [address] [place] Platelets (Bld) [#/Vol] 212 10*3/uL Normal 150-400 [facility] Comment on above: Order Comment: Speci men Type: BLOOD SPECIMEN [facility] Address: [address] [place] [address] Performed By: #### 2 4321-2 #### [facility] CLIA [id number] [address] [place] [address] [place] RBC (Bld) [#/Vol] 2.53 10*6/uL Low 4.20-6.00 [facility] Comment on above: Order Comment: Speci men Type: BLOOD SPECIMEN [facility] Address: [address] [place] [address] Performed By: #### 2 4321-2 #### [facility] CLIA [id number] [address] [place] [address] [place] WBC (Bld) [#/Vol] 11.49 10*3/uL High 3.70-11.00 [facility] Comment on above: Order Comment: Speci men Type: BLOOD SPECIMEN [facility] Address: [address] [place] [address] Performed By: #### 2 4321-2 #### [facility] CLIA [id number] [address] [place] [address] [place] Magnesium SerPl-mCncon 07-26 Magnesium [Mass/Vol] 1.9 mg/dL Normal 1.7-2.3 [facility] Comment on above: Order Comment: Speci men Type: BLOOD SPECIMENOrdering Facility: [facility] Address: [address] [place] [address] Performed By: #### 6 462-6 #### [facility] CLIA [id number] [address] [place] [address] [place] NURSING PROGon 07-26-2024 NURSING PROG HNO ID: [id number] Author: JACLYN BARRON, RN Service: Nursing Author Type: Registered Nurse Type: Nursing Progress Note Filed: 07/26/2024 18:28 Note Text: Other: BP 90/49 up in chair and patient back to bed. Rechecked lying down and 107/49. Page out to resident advisor team. Dr. Chopra is aware of recent BP's , no orders received, continue to monitor 1200 Sepsis alert and page sent to LIP. 1500 3 beats of V Tach and multiple PVC's surgical team paged. 1830 BP rechecked after 500ml Bolus and page out to provider per order Normal [facility] Phosphate SerPl-mCncon 07-26 Phosphate [Mass/Vol] 3.4 mg/dL Normal 2.7-4.8 [facility] Comment on above: Order Comment: Speci men Type: BLOOD SPECIMENOrdering Facility: [facility] Address: [address] [place] [address] Performed By: #### 6 462-6 #### [facility] [place] [id number] [address] [place] [address] [place] XR ABDOMEN 1V [...] decrease in caliber of the bowel loops. 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: No RADIOLOGY DEPARTMENT: General X-ray: Exam(s) Completed: Abdomen X-Ray: Abdomen PERIPHERAL IV DATA: Not applicable SIGNED BY: RT Yecenia(R) July 25, 2024 7:11 PM [facility] Basic metabolic 2000 panelon 07-25-2024 Anion gap [Moles/Vol] 7 mmol/L Low 8-15 [facility] Comment on above: Order Comment: Speci men Type: BLOOD SPECIMENOrdering Facility: [facility] Address: [address] [place] [address] Performed By: #### 2 4321-2 ####[facility] [id number] [place] [address] [place] Calcium [Mass/Vol] 8.3 mg/dL Low 8.5-10.2 [facility] Comment on above: Order Comment: Speci men Type: BLOOD SPECIMENOrdering Facility: [facility] Address: [address] [place] [address] Performed By: #### 2 4321-2 ####[facility] [id number] [place] [id number] [place] Chloride [Moles/Vol] 106 mmol/L Normal 98-107 [facility] Comment on above: Order Comment: Speci men Type: BLOOD SPECIMENOrdering Facility: [facility] Address: [address] [place] [address] Performed By: #### 2 4321-2 ####[facility] [id number] [place] [id number] [place] CO2 [Moles/Vol] 28 mmol/L Normal 22-30 [facility] Comment on above: Order Comment: Speci men Type: BLOOD SPECIMENOrdering Facility: [facility] Address: [address] [place] [address] Performed By: #### 2 4321-2 ####[facility] [id number] [place] [id number] [place] Creatinine [Mass/Vol] 1.23 mg/dL High 0.73-1.22 [facility] Comment on above: Order Comment: Speci men Type: BLOOD SPECIMENOrdering Facility: [facility] Address: [address] [place] [address] Performed By: #### 2 4321-2 ####[facility] [id number] [place] [id number] [facility] [place] Creatinine and Glomerular filtration rate.predicted panel (S/P/Bld) 63 mL/min/1.73m??? Normal >=60 [facility] Comment on above: Order Comment: Speci men Type: BLOOD SPECIMENOrdering Facility: [facility] Address: [address] [place] [address] Result Comment: Rebekah mated Glomerular Filtration Rate [...] actual GFR. Performed By: #### 2 4321-2 ####[facility] [id number] [place] [id number] [place] Glucose [Mass/Vol] 96 mg/dL Normal 74-99 [facility] Comment on above: Order Comment: Nazario brooks Type: BLOOD SPECIMENOrdering Facility: [facility] Address: [address] [place] [address] Result Comment: The [place] Diabetes Association (ADA) provides guidance for cutoff [...] Standards of Medical Care in Diabetes 2016, [place] [employer]. Diabetes Care. 2016.39(Suppl 1). Performed By: #### 2 4321-2 ####[facility] [id number] [place] [id number] [place] Potassium [Moles/Vol] 4.0 mmol/L Normal 3.7-5.1 [facility] Comment on above: Order Comment: Nazario brooks Type: BLOOD SPECIMENOrdering Facility: [facility] Address: [address] [place] [address] Performed By: #### 2 4321-2 ####[facility] [id number] [place] [id number] [place] Sodium [Moles/Vol] 141 mmol/L Normal 136-144 [facility] Comment on above: Order Comment: Nazario brooks Type: BLOOD SPECIMENOrdering Facility: [facility] Address: [address] [place] [address] Performed By: #### 2 4321-2 ####[facility] [id number] [place] [address] [place] Urea nitrogen [Mass/Vol] 19 mg/dL Normal 9-24 [facility] Comment on above: Order Comment: Speci men Type: BLOOD SPECIMENOrdering Facility: [facility] Address: [address] [place] [address] Performed By: #### 2 4321-2 ####[facility] [id number] [place] [address] [place] CBC panel Auto (Bld)on 07-25 Erythrocyte distribution width (RBC) [Ratio] 15.8 % High 11.5-15.0 [facility] Comment on above: Order Comment: Speci men Type: BLOOD SPECIMENOrdering Facility: [facility] Address: [address] [place] [address] Performed By: #### 6 00-7 #### [facility] CLIA [id number] [address] [place] [address] [place] Hematocrit (Bld) [Volume fraction] 22.3 % Low 39.0-51.0 [facility] Comment on above: Order Comment: Speci men Type: BLOOD SPECIMENOrdering Facility: [facility] Address: [address] [place] [address] Performed By: #### 6 00-7 #### [facility] CLIA [id number] [address] [place] [address] [place] Hemoglobin (Bld) [Mass/Vol] 7.6 g/dL Low 13.0-17.0 [facility] Comment on above: Order Comment: Speci men Type: BLOOD SPECIMENOrdering Facility: [facility] Address: [address] [place] [address] Performed By: #### 6 00-7 #### [facility] CLIA [id number] [address] [place] [address] [place] MCH (RBC) [Entitic mass] 32.3 pg Normal 26.0-34.0 [facility] Comment on above: Order Comment: Speci men Type: BLOOD SPECIMENOrdering Facility: [facility] Address: [address] [place] [address] Performed By: #### 6 00-7 #### [facility] CLIA [id number] [address] [place] [address] [place] MCHC (RBC) [Mass/Vol] 34.1 g/dL Normal 30.5-36.0 [facility] Comment on above: Order Comment: Speci men Type: BLOOD SPECIMENOrdering Facility: [facility] Address: [address] [place] [address] Performed By: #### 6 00-7 #### [facility] CLIA [id number] [address] [place] [address] [place] MCV (RBC) [Entitic vol] 94.9 fL Normal 80.0-100.0 [facility] Comment on above: Order Comment: Speci men Type: BLOOD SPECIMENOrdering Facility: [facility] Address: [address] [place] [address] Performed By: #### 6 00-7 #### [facility] CLIA [id number] [address] [place] [address] [place] Nucleated RBC (Bld) [#/Vol] 10*3/uL Normal <0.01 [facility] Comment on above: Order Comment: Speci men Type: BLOOD SPECIMENOrdering Facility: [facility] Address: [address] [place] [address] Performed By: #### 6 00-7 #### [facility] CLIA [id number] [address] [place] [address] [place] Platelet mean volume (Bld) [Entitic vol] 11.0 fL Normal 9.0-12.7 [facility] Comment on above: Order Comment: Speci men Type: BLOOD SPECIMENOrdering Facility: [facility] Address: [address] [place] [address] Performed By: #### 6 00-7 #### [facility] CLIA [id number] [address] [place] [address] [place] Platelets (Bld) [#/Vol] 174 10*3/uL Normal 150-400 [facility] Comment on above: Order Comment: Speci men Type: BLOOD SPECIMENOrdering Facility: [facility] Address: [address] [place] [address] Performed By: #### 6 00-7 #### [facility] CLIA [id number] [address] [place] [address] [place] RBC (Bld) [#/Vol] 2.35 10*6/uL Low 4.20-6.00 [facility] Comment on above: Order Comment: Speci men Type: BLOOD SPECIMENOrdering Facility: [facility] Address: [address] [place] [address] Performed By: #### 6 -7 #### [facility] CLIA [id number] [address] [place] [address] [place] WBC (Bld) [#/Vol] 14.03 10*3/uL High 3.70-11.00 [facility] Comment on above: Order Comment: Speci men Type: BLOOD SPECIMENOrdering Facility: [facility] Address: [address] [place] [address] Performed By: #### 6 -7 #### [facility] CLIA [id number] [address] [place] [address] [place] NURSING PROGon 07-25-2024 NURSING PROG HNO ID: [id number] Author: JACLYN BARRON RN Service: Nursing Author Type: Registered Nurse Type: Nursing Progress Note Filed: 07/25/2024 18:54 Note Text: Other: 1400 Abdomen noted to have increased distention, page to 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 7972 Surgical HO up to see for distention [...] ordered. 1855 KUB done at bedside. Normal [facility] XR ABDOMEN 1V SUPINEon 07-25 XR [...] bowel. Could reflect postoperative ileus versus obstruction. 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[facility]ITALKana Transcribe Date/Time: Jul 26 2024 8:12A Dictated by : SWAPNA VAZQUEZ MD This examination was interpreted and the report reviewed and electronically signed by: SWAPNA VAZQUEZ MD on Jul 26 2024 8:15AM EST [id number] Normal [facility] Basic metabolic 2000 panelon 07-24-2024 Anion gap [Moles/Vol] 7 mmol/L Low 8-15 [facility] Comment on above: Order Comment: Speci men Type: BLOOD SPECIMENOrdering Facility: [facility] Address: [address] [place] [address] Performed By: #### 1 9123-9, 35356-4, 2777-1 ####[facility] [id number] [place] [id number] [place] Calcium [Mass/Vol] 8.1 mg/dL Low 8.5-10.2 [facility] Comment on above: Order Comment: Speci men Type: BLOOD SPECIMENOrdering Facility: [facility] Address: [address] [place] [address] Performed By: #### 1 9123-9, 39113-8, 7- ####[facility] [id number] [place] [id number] [place] Chloride [Moles/Vol] 105 mmol/L Normal 98-107 [facility] Comment on above: Order Comment: Speci men Type: BLOOD SPECIMENOrdering Facility: [facility] Address: [address] [place] [address] Performed By: #### 1 9123-9, 09264-9, 2776- ####[facility] [id number] [place] [id number] [place] CO2 [Moles/Vol] 27 mmol/L Normal 22-30 [facility] Comment on above: Order Comment: Speci men Type: BLOOD SPECIMENOrdering Facility: [facility] Address: [address] [place] [address] Performed By: #### 1 9123-9, 10457-3, 2776- ####[facility] [id number] [place] [id number] [place] Creatinine [Mass/Vol] 1.17 mg/dL Normal 0.73-1.22 [facility] Comment on above: Order Comment: Speci men Type: BLOOD SPECIMENOrdering Facility: [facility] Address: [address] [place] [address] Performed By: #### 1 9123-9, 92215-7, 2776- ####[facility] LABORATORYCLIA [id number] [place] [id number] [place] Creatinine and Glomerular filtration rate.predicted panel (S/P/Bld) 67 mL/min/1.73m??? Normal >=60 [facility] Comment on above: Order Comment: Speci men Type: BLOOD SPECIMENOrdering Facility: [facility] Address: [address] [place] [address] Result Comment: Rebekah mated Glomerular Filtration Rate [...] actual GFR. Performed By: #### 1 9123-9, 93058-5, 2776-10 ####[facility] LABORATORYCLIA [id number] [place] [address] [place] Glucose [Mass/Vol] 127 mg/dL High 74-99 [facility] Comment on above: Order Comment: Nazario brooks Type: BLOOD SPECIMENOrdering Facility: [facility] Address: [address] [place] [address] Result Comment: The [place] Diabetes Association (ADA) provides guidance for cutoff [...] Standards of Medical Care in Diabetes 2016, [place] [employer]. Diabetes Care. 2016.39(Suppl 1). Performed By: #### 1 9123-9, 77404-5, 2776-10 ####MAR[facility]ZA LABORATORYCLIA [id number] [place] [id number] [place] Potassium [Moles/Vol] 4.0 mmol/L Normal 3.7-5.1 [facility] Comment on above: Order Comment: Nazario brooks Type: BLOOD SPECIMENOrdering Facility: [facility] Address: [address] [place] [id number] Performed By: #### 1 9123-9, 89867-8, 2776-10 ####MAR[facility] LABORATORYCLIA [id number] [place] [address] [place] Sodium [Moles/Vol] 139 mmol/L Normal 136-144 [facility] Comment on above: Order Comment: Speci men Type: BLOOD SPECIMENOrdering Facility: [facility] Address: [address] [place] [address] Performed By: #### 1 9123-9, 44334-8, 27704-20 ####MARITZA LABORATORYCLIA [id number] [place] [address] [place] [facility] Urea nitrogen [Mass/Vol] 15 mg/dL Normal 9-24 [facility] Comment on above: Order Comment: Speci men Type: BLOOD SPECIMENOrdering Facility: [facility] Address: [address] [place] [address] Performed By: #### 1 9123-9, 71482-7, 2776-10 ####MARITZA LABORATORYCLIA [id number] [address] [place] CBC panel Auto (Bld)on 07-24 Erythrocyte distribution width (RBC) [Ratio] 15.8 % High 11.5-15.0 [facility] Comment on above: Order Comment: Speci men Type: BLOOD SPECIMENOrdering Facility: [facility] Address: [address] [place] [address] Performed By: #### 5 8410-2 ####MARITZA LABORATORYCLIA [id number] [place] [address] [place] Hematocrit (Bld) [Volume fraction] 23.3 % Low 39.0-51.0 [facility] Comment on above: Order Comment: Speci men Type: BLOOD SPECIMENOrdering Facility: [facility] Address: [address] [place] [address] Performed By: #### 5 8410-2 ####MARITZA LABORATORYCLIA [id number] [place] [address] [place] Hemoglobin (Bld) [Mass/Vol] 7.8 g/dL Low 13.0-17.0 [facility] Comment on above: Order Comment: Speci men Type: BLOOD SPECIMENOrdering Facility: [facility] Address: [address] [place] [address] Performed By: #### 5 8410-2 ####MARITZA LABORATORYCLIA [id number] [address] STATES [facility] MCH (RBC) [Entitic mass] 31.7 pg Normal 26.0-34.0 [facility] Comment on above: Order Comment: Speci men Type: BLOOD SPECIMENOrdering Facility: [facility] Address: [address] [place] [address] Performed By: #### 5 8410-2 ####MARITZA LABORATORYCLIA [id number] [place] [address] [place] MCHC (RBC) [Mass/Vol] 33.5 g/dL Normal 30.5-36.0 [facility] Comment on above: Order Comment: Speci men Type: BLOOD SPECIMENOrdering Facility: [facility] Address: [address] [place] [address] Performed By: #### 5 8410-2 ####MARITZA LABORATORYCLIA [id number] [address] [place] MCV (RBC) [Entitic vol] 94.7 fL Normal 80.0-100.0 [facility] Comment on above: Order Comment: Speci men Type: BLOOD SPECIMENOrdering Facility: [facility] Address: [address] [place] [address] Performed By: #### 5 8410-2 ####MARITZA LABORATORYCLIA [id number] [address] [place] Nucleated RBC (Bld) [#/Vol] 10*3/uL Normal <0.01 [facility] Comment on above: Order Comment: Speci men Type: BLOOD SPECIMENOrdering Facility: [facility] Address: [address] [place] [address] Performed By: #### 5 8410-2 ####[facility] LABORATORYCLIA [id number] [address] [place] Platelet mean volume (Bld) [Entitic vol] 10.7 fL Normal 9.0-12.7 [facility] Comment on above: Order Comment: Speci men Type: BLOOD SPECIMENOrdering Facility: [facility] Address: [address] [place] [address] Performed By: #### 5 8410-2 ####LUDL[facility] LABORATORYCLIA [id number] [place] [address] [place] Platelets (Bld) [#/Vol] 146 10*3/uL Low 150-400 [facility] Comment on above: Order Comment: Speci men Type: BLOOD SPECIMENOrdering Facility: [facility] Address: [address] [place] [address] Performed By: #### 5 8410-2 ####[facility] LABORATORYCLIA [id number] [place] [address] [place] RBC (Bld) [#/Vol] 2.46 10*6/uL Low 4.20-6.00 [facility] Comment on above: Order Comment: Speci men Type: BLOOD SPECIMENOrdering Facility: [facility] Address: [address] [place] [address] Performed By: #### 5 8410-2 ####LUDLOW LABORATORYCLIA [id number] [place] [address] [facility] [place] WBC (Bld) [#/Vol] 16.72 10*3/uL High 3.70-11.00 [facility] Comment on above: Order Comment: Speci men Type: BLOOD SPECIMENOrdering Facility: [facility] Address: [address] [place] [address] Performed By: #### 5 8410-2 ####LUDL[facility] LABORATORYCLIA [id number] [place] [address] [facility] [place] Magnesium SerPl-mCncon 07-24 Magnesium [Mass/Vol] 2.1 mg/dL Normal 1.7-2.3 [facility] Comment on above: Order Comment: Speci men Type: BLOOD SPECIMENOrdering Facility: [facility] Address: [address] [place] [address] Performed By: #### 1 9123-9, 42627-9, 2777-1 ####[facility]DL[facility] LABORATORYCLIA [id number] [place] [address] [place] NUTRITIONon 07-24-2024 NUTRITION HNO ID: [id number] Author: SONAM PALOMINO RD Service: Nutrition Therapy [...] Aids Used: Eating Right After GI Surgery [email or web address] Supplemental Material Provided to Patient: None Referral (Recommendation): N/A Sonam Palomino RD July 24, 2024 10:59 AM Normal [facility] Phosphate SerPl-mCncon 07-24 Phosphate [Mass/Vol] 3.0 mg/dL Normal 2.7-4.8 [facility] Comment on above: Order Comment: Speci men Type: BLOOD SPECIMENOrdering Facility: [facility] Address: [address] [place] [address] Performed By: #### 1 9123-9, 43153-0, 2777-1 ####LUDLOW LABORATORYCLIA [id number] [address] THERAPY NTon 07-24-2024 THERAPY NT HNO ID: [id number] Author: MILTON MAYA OT/L Service: Occupational Therapy Author Type: Occupational Therapist Type: Therapy (PT/OT/Speech/Resp) Filed: 07/24/2024 13:06 Note Text: Occupational Therapy Evaluation Summary SERVICE DATE: 07/24/2024 SERVICE TIME: 1120 to 1228 ROOM: [place] [address] OT 6 Clicks Score: 20 DISCHARGE RECOMMENDATIONS [...] Toilet, Hand Held Shower, Elevated Toilet Seat, 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 SUBJECTIVE Patient receptive and agreeable to OT eval tasks. COGNITION Responsiveness: Alert, Awake THERAPY DIAGNOSIS Reduced mobility-other, Decreased activities of daily living (ADL) TREATMENT INTERVENTIONS Evaluation, Self Shelter Management (28368) Timed Code Treatment (minutes): 53 Skilled Treatment [...] July 24, 2024 TIME: 1:06 PM Normal [facility] THERAPY NT HNO ID: [id number] Author: JENNIFER BRISENO PT Service: Physical Therapy Author Type: Physical Therapist Type: Therapy (PT/OT/Speech/Resp) Filed: 07/24/2024 10:47 Note Text: Physical Therapy Treatment Summary SERVICE DATE: 07/24/2024 SERVICE TIME: 937 to 949 ROOM: [place] [address] PT 6 Clicks Score: 22 DISCHARGE RECOMMENDATIONS [...] daily living (ADL) TREATMENT INTERVENTIONS Therapeutic Activity (88923) Timed Code Treatment (minutes): 12 Skilled Treatment [...] DATE: July 24, 2024 TIME: 10:47 AM Normal [facility] THERAPY NT HNO ID: [id number] Author: JENNIFER BRISENO PT Service: Physical Therapy Author Type: Physical Therapist Type: Therapy (PT/OT/Speech/Resp) Filed: 07/24/2024 08:50 Note Text: PHYSICAL THERAPY MISSED VISIT SERVICE DATE: 07/24/2024 SERVICE TIME: 0844 ROOM: [place] [address] Patient not seen due to Patient Not Available. SIGNATURE: Jennifer Briseno PT PATIENT NAME: Mervat Grayson DATE: July 24, 2024 TIME: 8:50 AM [facility] ANES POSTPROC EVALon 024 ANES POSTPROC EVAL HNO ID: [id number] Author: MK LO MD Service: Anesthesiology Author Type: Anesthesiologist Type: Anesthesia Postprocedure Evaluation Filed: 07/23/2024 10:56 Note Text: POST ANESTHESIA EVALUATION NOTE : 1950 Procedure Summary Date: 07/23/24 Room / Location: [place] [address] / OR Anesthesia Start: 21 Anesthesia Stop: 357 Procedure: LAPAROSCOPY DIAGNOSTIC (Abdomen) [...] July 23, 2024 TIME: 10:56 AM CSN: [id number] [facility] ANES PRE-OPon 07-23-2024 ANES PRE-OP HNO ID: [id number] Author: MK LO MD Service: Anesthesiology Author [...] July 23, 2024 TIME: 12:10 AM CSN: [id number] [facility] BRIEF OP NOTon 07-23-2024 BRIEF OP NOT HNO ID: [id number] Author: KEKE RODRIGUEZ MD Service: Colorectal Author Type: Resident Type: Brief Op Note Filed: 07/23/2024 04:00 Note Text: BRIEF OPERATIVE NOTE Patient Name: Mervat Grayson LOG ID: [id number] Surgery/Procedure Date: 07/22/2024 - 07/23/2024 Surgeon(s)/Proceduralis t(s) and Personnel Generalist Manager(s): Surgeons and Role: * Deborah Norman MD [...] Post-Op Plan: - RNF - NPO - [employer]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 - IV abx for 5 days - no lovenox 10 AM SIGNATURE: Keke Rodriguez MD PATIENT NAME: Mervat Grayson DATE: 07/23/24 TIME: 3:48 AM PAGER # [phone] Normal [facility] Basic metabolic 2000 panelon 07-23-2024 Anion gap [Moles/Vol] 10 mmol/L Normal 8-15 [facility] Comment on above: Order Comment: Speci men Type: BLOOD SPECIMEN [facility] Address: [address] [place] [address] Performed By: #### 3 4528-0, 18198-1 #### [facility] CLIA [id number] [address] [place] [address] [place] Calcium [Mass/Vol] 8.3 mg/dL Low 8.5-10.2 [facility] Comment on above: Order Comment: Speci men Type: BLOOD SPECIMEN [facility] Address: [address] [place], [place] [address] Performed By: #### 3 4528-0, 53252-3 #### [facility] CLIA [id number] [address] [place] [address] [place] Chloride [Moles/Vol] 104 mmol/L Normal 98-107 [facility] Comment on above: Order Comment: Speci men Type: BLOOD SPECIMEN [facility] Address: [address] [place] [address] Performed By: #### 3 4528-0, 36936-8 #### [facility] CLIA [id number] [address] [place] [address] [place] CO2 [Moles/Vol] 24 mmol/L Normal 22-30 [facility] Comment on above: Order Comment: Speci men Type: BLOOD SPECIMEN [facility] Address: [address] [place] [address] Performed By: #### 3 4528-0, 00679-9 #### [facility] CLIA [id number] [address] [place] [address] [place] Creatinine [Mass/Vol] 1.08 mg/dL Normal 0.73-1.22 [facility] Comment on above: Order Comment: Speci men Type: BLOOD SPECIMEN [facility] Address: [address] [place] [address] Performed By: #### 3 4528-0, 73898-0 #### [facility] CLIA [id number] [address] [place] [address] [place] Creatinine and Glomerular filtration rate.predicted panel (S/P/Bld) 73 mL/min/1.73m??? Normal >=60 [facility] Comment on above: Order Comment: Speci men Type: BLOOD SPECIMEN [facility] Address: [address] [place] [address] Result Comment: Rebekah mated Glomerular Filtration Rate [...] actual GFR. Performed By: #### 3 4528-0, 12823-4 #### [facility] CLIA [id number] [address] [place] [address] [place] Glucose [Mass/Vol] 173 mg/dL High 74-99 [facility] Comment on above: Order Comment: Nazario brooks Type: BLOOD SPECIMEN [facility] Address: [address] [place] [address] Result Comment: The [place] Diabetes Association (ADA) provides guidance for cutoff [...] Standards of Medical Care in Diabetes 2016, [place] [employer]. Diabetes Care. 2016.39(Suppl 1). Performed By: #### 3 4528-0, 81727-4 #### [facility] CLIA [id number] [address] [place] [address] [place] Potassium [Moles/Vol] 4.0 mmol/L Normal 3.7-5.1 [facility] Comment on above: Order Comment: Nazario brooks Type: BLOOD SPECIMEN [facility] Address: [address] [place] [address] Performed By: #### 3 4528-0, 81478-7 #### [facility] CLIA [id number] [address] [place], [place] [address] [place] Sodium [Moles/Vol] 138 mmol/L Normal 136-144 [facility] Comment on above: Order Comment: Nazario brooks Type: BLOOD SPECIMEN [facility] Address: [address] [place] [address] Performed By: #### 3 4528-0, 23639-9 #### [facility] CLIA [id number] [address] [place] [address] [place] Urea nitrogen [Mass/Vol] 11 mg/dL Normal 9-24 [facility] Comment on above: Order Comment: Speci men Type: BLOOD SPECIMEN [facility] Address: [address] [place] [address] Performed By: #### 3 4528-0, 60881-1 #### [facility] CLIA [id number] [address] [place] [address] [place] Anion gap [Moles/Vol] 13 mmol/L Normal 8-15 [facility] Comment on above: Order Comment: Speci men Type: BLOOD SPECIMEN [facility] Address: [address] [place] [address] Performed By: #### 3 4528-0, 14344-3 #### [facility] CLIA [id number] [address] [place] [address] [place] Calcium [Mass/Vol] 8.5 mg/dL Normal 8.5-10.2 [facility] Comment on above: Order Comment: Speci men Type: BLOOD SPECIMEN [facility] Address: [address] [place] [address] Performed By: #### 3 4528-0, 15412-0 #### [facility] CLIA [id number] [address] [place] [address] [place] Chloride [Moles/Vol] 104 mmol/L Normal 98-107 [facility] Comment on above: Order Comment: Speci men Type: BLOOD SPECIMEN [facility] Address: [address] [place] [address] Performed By: #### 3 4528-0, 70961-8 #### [facility] CLIA [id number] [address] [place] [address] [place] CO2 [Moles/Vol] 22 mmol/L Normal 22-30 [facility] Comment on above: Order Comment: Speci men Type: BLOOD SPECIMEN [facility] Address: [address] [place] [address] [place] [address] Performed By: #### 3 4528-0, 85894-7 #### [facility] CLIA [id number] [address] [place] [address] [place] Creatinine [Mass/Vol] 1.06 mg/dL Normal 0.73-1.22 [facility] Comment on above: Order Comment: Nazario brooks Type: BLOOD SPECIMEN [facility] Address: [address] [place] [address] Performed By: #### 3 4528-0, 14104-8 #### [facility] CLIA [id number] [place] [address] [place] Creatinine and Glomerular filtration rate.predicted panel (S/P/Bld) 75 mL/min/1.73m??? Normal >=60 [facility] Comment on above: Order Comment: Nazario brooks Type: BLOOD SPECIMEN [facility] Address: [address] [place] [address] Result Comment: Rebekah mated Glomerular Filtration Rate [...] actual GFR. Performed By: #### 3 4528-0, 03491-2 #### [facility] CLIA [id number] [address] [place] [address] [place] Glucose [Mass/Vol] 155 mg/dL High 74-99 [facility] Comment on above: Order Comment: Nazario brooks Type: BLOOD SPECIMEN [facility] Address: [address] [place] [address] Result Comment: The [place] Diabetes Association (ADA) provides guidance for cutoff [...] Standards of Medical Care in Diabetes 2016, [place] [employer]. Diabetes Care. 2016.39(Suppl 1). Performed By: #### 3 4528-0, 54014-0 #### [facility] CLIA [id number] [address] [place] [address] [place] Potassium [Moles/Vol] 4.0 mmol/L Normal 3.7-5.1 [facility] Comment on above: Order Comment: Speci men Type: BLOOD SPECIMEN [facility] Address: [address] [place] [address] Performed By: #### 3 4528-0, 89101-5 #### [facility] CLIA [id number] [address] [place] [address] [place] Sodium [Moles/Vol] 139 mmol/L Normal 136-144 [facility] Comment on above: Order Comment: Speci men Type: BLOOD SPECIMEN [facility] Address: [address] [place] [address] Performed By: #### 3 4528-0, 55412-5 #### [facility] CLIA [id number] [address] [place] [address] [place] Urea nitrogen [Mass/Vol] 11 mg/dL Normal 9-24 [facility] Comment on above: Order Comment: Speci men Type: BLOOD SPECIMEN [facility] Address: [address] [place] [address] Performed By: #### 3 4528-0, 32869-6 #### [facility] CLIA [id number] [address] [place] [address] [place] CBC W Auto Differential pane l (Bld)on 07-23-2024 Basophils (Bld) [#/Vol] 0.03 10*3/uL Normal <0.11 [facility] Comment on above: Order Comment: Speci men Type: BLOOD SPECIMEN [facility] Address: [address] [place] [address] Performed By: #### 2 4321-2 #### [facility] CLIA [id number] [address] [place] [address] [place] Basophils/100 WBC (Bld) 0.2 % Normal [facility] Comment on above: Order Comment: Speci men Type: BLOOD SPECIMEN [facility] Address: [address] [place] [address] Performed By: #### 2 4321-2 #### [facility] CLIA [id number] [address] [place] [address] [place] Differential cell count method Nom (Bld) Auto Normal [facility] Comment on above: Order Comment: Speci men Type: BLOOD SPECIMEN [facility] Address: [address] [place] [address] Performed By: #### 2 4321-2 #### [facility] CLIA [id number] [address] [place] [address] [place] Eosinophils (Bld) [#/Vol] 10*3/uL Normal <0.46 [facility] Comment on above: Order Comment: Speci men Type: BLOOD SPECIMEN [facility] Address: [address] [place] [address] Performed By: #### 2 4321-2 #### [facility] CLIA [id number] [address] [place] [address] [place] Eosinophils/100 WBC (Bld) 0.1 % Normal [facility] Comment on above: Order Comment: Speci men Type: BLOOD SPECIMEN [facility] Address: [address] [place] [address] Performed By: #### 2 4321-2 #### [facility] CLIA [id number] [address] [place] [address] [place] Erythrocyte distribution width (RBC) [Ratio] 15.9 % High 11.5-15.0 [facility] Comment on above: Order Comment: Speci men Type: BLOOD SPECIMEN [facility] Address: [address] [place] [address] Performed By: #### 2 4321-2 #### [facility] CLIA [id number] [address] [place] [address] [place] Hematocrit (Bld) [Volume fraction] 34.8 % Low 39.0-51.0 [facility] Comment on above: Order Comment: Speci men Type: BLOOD SPECIMEN [facility] Address: [address] [place] [address] Performed By: #### 2 4321-2 #### [facility] CLIA [id number] [address] [place] [address] [place] Hemoglobin (Bld) [Mass/Vol] 11.6 g/dL Low 13.0-17.0 [facility] Comment on above: Order Comment: Speci men Type: BLOOD SPECIMEN [facility] Address: [address] [place] [address] Performed By: #### 2 4321-2 #### [facility] CLIA [id number] [address] [place] [address] [place] Immature granulocytes (Bld) [#/Vol] 0.09 10*3/uL Normal <0.10 [facility] Comment on above: Order Comment: Speci men Type: BLOOD SPECIMEN [facility] Address: [address] [place] [address] Performed By: #### 2 4321-2 #### [facility] CLIA [id number] [address] [place] [address] [place] Immature granulocytes/100 WBC (Bld) 0.6 % Normal [facility] Comment on above: Order Comment: Speci men Type: BLOOD SPECIMEN [facility] Address: [address] [place] [address] Performed By: #### 2 4321-2 #### [facility] CLIA [id number] [address] [place] [address] [place] Lymphocytes (Bld) [#/Vol] 0.38 10*3/uL Low 1.00-4.00 [facility] Comment on above: Order Comment: Speci men Type: BLOOD SPECIMEN [facility] Address: [address] [place] [address] Performed By: #### 2 4321-2 #### [facility] CLIA [id number] [address] [place] [address] [place] Lymphocytes/100 WBC (Bld) 2.7 % Normal [facility] Comment on above: Order Comment: Speci men Type: BLOOD SPECIMEN [facility] Address: [address] [place] [address] Performed By: #### 2 4321-2 #### [facility] CLIA [id number] [address] [place] [address] [place] MCH (RBC) [Entitic mass] 31.4 pg Normal 26.0-34.0 [facility] Comment on above: Order Comment: Speci men Type: BLOOD SPECIMEN [facility] Address: [address] [place] [address] Performed By: #### 2 4321-2 #### [facility] CLIA [id number] [address] [place] [address] [place] MCHC (RBC) [Mass/Vol] 33.3 g/dL Normal 30.5-36.0 [facility] Comment on above: Order Comment: Speci men Type: BLOOD SPECIMEN Ordering Facility: [facility] Address: [address] [place] [address] Performed By: #### 2 4321-2 #### [facility] CLIA [id number] [address] [place] [address] [place] MCV (RBC) [Entitic vol] 94.1 fL Normal 80.0-100.0 [facility] Comment on above: Order Comment: Speci men Type: BLOOD SPECIMEN Ordering Facility: [facility] Address: [address] [place] [address] Performed By: #### 2 4321-2 #### [facility] CLIA [id number] [address] [place] [address] [place] Monocytes (Bld) [#/Vol] 0.47 10*3/uL Normal <0.87 [facility] Comment on above: Order Comment: Speci men Type: BLOOD SPECIMEN Ordering Facility: [facility] Address: [address] [place] [address] Performed By: #### 2 4321-2 #### [facility] CLIA [id number] [address] [place] [address] [place] Monocytes/100 WBC (Bld) 3.3 % Normal [facility] Comment on above: Order Comment: Speci men Type: BLOOD SPECIMEN Ordering Facility: [facility] Address: [address] [place] [address] Performed By: #### 2 4321-2 #### [facility] CLIA [id number] [address] [place] [address] [place] Neutrophils (Bld) [#/Vol] 13.24 10*3/uL High 1.45-7.50 [facility] Comment on above: Order Comment: Speci men Type: BLOOD SPECIMEN Ordering Facility: [facility] Address: [address] [place] [address] Performed By: #### 2 4321-2 #### [facility] CLIA [id number] [address] [place] [address] [place] Neutrophils/100 WBC (Bld) 93.1 % Normal [facility] Comment on above: Order Comment: Speci men Type: BLOOD SPECIMEN Ordering Facility: [facility] Address: [address] [place] [address] Performed By: #### 2 4321-2 #### [facility] CLIA [id number] [address] [place] [address] [place] Nucleated RBC (Bld) [#/Vol] 10*3/uL Normal <0.01 [facility] Comment on above: Order Comment: Speci men Type: BLOOD SPECIMEN Ordering Facility: [facility] Address: [address] [place] [address] Performed By: #### 2 4321-2 #### [facility] CLIA [id number] [address] [place] [address] [place] Nucleated RBC/100 WBC (Bld) [Ratio] 0.0 /100 WBC Normal [facility] Comment on above: Order Comment: Speci men Type: BLOOD SPECIMEN Ordering Facility: [facility] Address: [address] [place] [address] Performed By: #### 2 4321-2 #### [facility] CLIA [id number] [address] [place] [address] [place] Platelet mean volume (Bld) [Entitic vol] 10.5 fL Normal 9.0-12.7 [facility] Comment on above: Order Comment: Speci men Type: BLOOD SPECIMEN Ordering Facility: [facility] Address: [address] [place] [address] Performed By: #### 2 4321-2 #### [facility] CLIA [id number] [address] [place] [address] [place] Platelets (Bld) [#/Vol] 184 10*3/uL Normal 150-400 [facility] Comment on above: Order Comment: Speci men Type: BLOOD SPECIMEN Ordering Facility: [facility] Address: [address] [place] [address] Performed By: #### 2 4321-2 #### [facility] CLIA [id number] [address] [place] [address] [place] RBC (Bld) [#/Vol] 3.70 10*6/uL Low 4.20-6.00 [facility] Comment on above: Order Comment: Speci men Type: BLOOD SPECIMEN Ordering Facility: [facility] Address: [address] [place] [address] Performed By: #### 2 4321-2 #### [facility] CLIA [id number] [address] [place] [address] [place] WBC (Bld) [#/Vol] 14.22 10*3/uL High 3.70-11.00 [facility] Comment on above: Order Comment: Speci men Type: BLOOD SPECIMEN Ordering Facility: [facility] Address: [address] [place] [address] Performed By: #### 2 4321-2 #### [facility] CLIA [id number] [address] [place] [address] [place] CBC panel Auto (Bld)on 07-23 Erythrocyte distribution width (RBC) [Ratio] 15.9 % High 11.5-15.0 [facility] Comment on above: Order Comment: Speci men Type: BLOOD SPECIMENOrdering Facility: [facility] Address: [address] [place] [address] Performed By: #### 5 8410-2 ####[facility] [id number] [address] [place] Hematocrit (Bld) [Volume fraction] 24.7 % Low 39.0-51.0 [facility] Comment on above: Order Comment: Speci men Type: BLOOD SPECIMENOrdering Facility: [facility] Address: [address] [place] [address] Performed By: #### 5 8410-2 ####[facility] [id number] [address] [place] Hemoglobin (Bld) [Mass/Vol] 8.4 g/dL Low 13.0-17.0 [facility] Comment on above: Order Comment: Speci men Type: BLOOD SPECIMENOrdering Facility: [facility] Address: [address] [place] [address] Performed By: #### 5 8410-2 ####[facility] [id number] [address] [place] MCH (RBC) [Entitic mass] 32.2 pg Normal 26.0-34.0 [facility] Comment on above: Order Comment: Speci men Type: BLOOD SPECIMENOrdering Facility: [facility] Address: [address] [place] [address] Performed By: #### 5 8410-2 ####[facility] [id number] [address] [place] MCHC (RBC) [Mass/Vol] 34.0 g/dL Normal 30.5-36.0 [facility] Comment on above: Order Comment: Speci men Type: BLOOD SPECIMENOrdering Facility: [facility] Address: [address] [place] [address] Performed By: #### 5 8410-2 ####[facility]IA [id number] [place] [id number] [place] MCV (RBC) [Entitic vol] 94.6 fL Normal 80.0-100.0 [facility] Comment on above: Order Comment: Speci men Type: BLOOD SPECIMENOrdering Facility: [facility] Address: [address] [place] [address] Performed By: #### 5 8410-2 ####[facility]IA [id number] [place] [address] [place] Nucleated RBC (Bld) [#/Vol] 10*3/uL Normal <0.01 [facility] Comment on above: Order Comment: Speci men Type: BLOOD SPECIMENOrdering Facility: [facility] Address: [address] [place] [address] Performed By: #### 5 8410-2 ####[facility]ORYCLIA [id number] [place] [address] [place] Platelet mean volume (Bld) [Entitic vol] 10.4 fL Normal 9.0-12.7 [facility] Comment on above: Order Comment: Speci men Type: BLOOD SPECIMENOrdering Facility: [facility] Address: [address] [place] [address] Performed By: #### 5 8410-2 ####[facility]ORYCLIA [id number] [place] [id number] [place] Platelets (Bld) [#/Vol] 154 10*3/uL Normal 150-400 [facility] Comment on above: Order Comment: Speci men Type: BLOOD SPECIMENOrdering Facility: [facility] Address: [address] [place] [address] Performed By: #### 5 8410-2 ####[facility]ORYCLIA [id number] [place] [id number] [place] RBC (Bld) [#/Vol] 2.61 10*6/uL Low 4.20-6.00 [facility] Comment on above: Order Comment: Speci men Type: BLOOD SPECIMENOrdering Facility: [facility] Address: [address] [place] [address] Performed By: #### 5 8410-2 ####[facility]ORYCLIA [id number] [place] [address] [place] WBC (Bld) [#/Vol] 16.47 10*3/uL High 3.70-11.00 [facility] Comment on above: Order Comment: Speci men Type: BLOOD SPECIMENOrdering Facility: [facility] Address: [address] [place] [address] Performed By: #### 5 8410-2 ####[facility] [id number] [place] [address] [place] Erythrocyte distribution width (RBC) [Ratio] 16.0 % High 11.5-15.0 [facility] Comment on above: Order Comment: Speci men Type: BLOOD SPECIMEN Ordering Facility: [facility] Address: [address] [place] [address] Performed By: #### 3 4528-0, 82521-3 #### [facility] CLIA [id number] [address] [place] [address] [place] Hematocrit (Bld) [Volume fraction] 26.7 % Low 39.0-51.0 [facility] Comment on above: Order Comment: Speci men Type: BLOOD SPECIMEN Ordering Facility: [facility] Address: [address] [place] [address] Performed By: #### 3 4528-0, 17921-6 #### [facility] CLIA [id number] [address] [place] [address] [place] Hemoglobin (Bld) [Mass/Vol] 8.9 g/dL Low 13.0-17.0 [facility] Comment on above: Order Comment: Speci men Type: BLOOD SPECIMEN Ordering Facility: [facility] Address: [address] [place] [address] Performed By: #### 3 4528-0, 10049-0 #### [facility] CLIA [id number] [address] [place] [address] [place] MCH (RBC) [Entitic mass] 31.7 pg Normal 26.0-34.0 [facility] Comment on above: Order Comment: Speci men Type: BLOOD SPECIMEN Ordering Facility: [facility] Address: [address] [place] [address] Performed By: #### 3 4528-0, 41101-5 #### [facility] CLIA [id number] [address] [place] [address] [place] MCHC (RBC) [Mass/Vol] 33.3 g/dL Normal 30.5-36.0 [facility] Comment on above: Order Comment: Speci men Type: BLOOD SPECIMEN Ordering Facility: [facility] Address: [address] [place] [address] Performed By: #### 3 4528-0, 08112-7 #### [facility] CLIA [id number] [address] [place] [address] [place] [facility] MCV (RBC) [Entitic vol] 95.0 fL Normal 80.0-100.0 [facility] Comment on above: Order Comment: Speci men Type: BLOOD SPECIMEN Ordering Facility: [facility] Address: [address] [place] [address] Performed By: #### 3 4528-0, 62280-2 #### [facility] CLIA [id number] [address] [place] [address] [place] Nucleated RBC (Bld) [#/Vol] 10*3/uL Normal <0.01 [facility] Comment on above: Order Comment: Speci men Type: BLOOD SPECIMEN Ordering Facility: [facility] Address: [address] [place] [address] Performed By: #### 3 4528-0, 41396-1 #### [facility] CLIA [id number] [address] [place] [address] [place] Platelet mean volume (Bld) [Entitic vol] 11.0 fL Normal 9.0-12.7 [facility] Comment on above: Order Comment: Speci men Type: BLOOD SPECIMEN Ordering Facility: [facility] Address: [address] [place] [address] Performed By: #### 3 4528-0, 19017-9 #### [facility] CLIA [id number] [address] [place] [address] [place] Platelets (Bld) [#/Vol] 165 10*3/uL Normal 150-400 [facility] Comment on above: Order Comment: Speci men Type: BLOOD SPECIMEN Ordering Facility: [facility] Address: [address] [place] [address] Performed By: #### 3 4528-0, 35487-7 #### [facility] CLIA [id number] [address] [place] [address] [place] RBC (Bld) [#/Vol] 2.81 10*6/uL Low 4.20-6.00 [facility] Comment on above: Order Comment: Speci men Type: BLOOD SPECIMEN Ordering Facility: [facility] Address: [address] [place] [address] Performed By: #### 3 4528-0, 21653-2 #### [facility] CLIA [id number] [address] [place] [address] [place] WBC (Bld) [#/Vol] 16.33 10*3/uL High 3.70-11.00 [facility] Comment on above: Order Comment: Speci men Type: BLOOD SPECIMEN Ordering Facility: [facility] Address: [address] [place] [address] Performed By: #### 3 4528-0, 85534-5 #### [facility] CLIA [id number] [address] [place] [address] [place] Erythrocyte distribution width (RBC) [Ratio] 15.9 % High 11.5-15.0 [facility] Comment on above: Order Comment: Speci men Type: BLOOD SPECIMEN Ordering Facility: [facility] Address: [address] [place] [address] Performed By: #### 2 4321-2 #### [facility] CLIA [id number] [address] [place] [address] [place] Hematocrit (Bld) [Volume fraction] 28.4 % Low 39.0-51.0 [facility] Comment on above: Order Comment: Speci men Type: BLOOD SPECIMEN Ordering Facility: [facility] Address: [address] [place] [address] Performed By: #### 2 4321-2 #### [facility] CLIA [id number] [address] [place] [address] [place] Hemoglobin (Bld) [Mass/Vol] 9.4 g/dL Low 13.0-17.0 [facility] Comment on above: Order Comment: Speci men Type: BLOOD SPECIMEN Ordering Facility: [facility] Address: [address] [place] [address] Performed By: #### 2 4321-2 #### [facility] CLIA [id number] [address] [place] [address] [place] MCH (RBC) [Entitic mass] 31.4 pg Normal 26.0-34.0 [facility] Comment on above: Order Comment: Speci men Type: BLOOD SPECIMEN Ordering Facility: [facility] Address: [address] [place] [address] Performed By: #### 2 4321-2 #### [facility] CLIA [id number] [address] [place] [address] [place] MCHC (RBC) [Mass/Vol] 33.1 g/dL Normal 30.5-36.0 [facility] Comment on above: Order Comment: Speci men Type: BLOOD SPECIMEN Ordering Facility: [facility] Address: [address] [place] [address] Performed By: #### 2 4321-2 #### [facility] CLIA [id number] [address] [place] [address] [place] MCV (RBC) [Entitic vol] 95.0 fL Normal 80.0-100.0 [facility] Comment on above: Order Comment: Speci men Type: BLOOD SPECIMEN Ordering Facility: [facility] Address: [address] [place] [address] Performed By: #### 2 4321-2 #### [facility] CLIA [id number] [address] [place] [address] [place] Nucleated RBC (Bld) [#/Vol] 10*3/uL Normal <0.01 [facility] Comment on above: Order Comment: Speci men Type: BLOOD SPECIMEN Ordering Facility: [facility] Address: [address] [place] [address] Performed By: #### 2 4321-2 #### [facility] CLIA [id number] [address] [place] [address] [place] Platelet mean volume (Bld) [Entitic vol] 10.5 fL Normal 9.0-12.7 [facility] Comment on above: Order Comment: Speci men Type: BLOOD SPECIMEN Ordering Facility: [facility] Address: [address] [place] [address] Performed By: #### 2 4321-2 #### [facility] CLIA [id number] [address] [place] [address] [place] Platelets (Bld) [#/Vol] 165 10*3/uL Normal 150-400 [facility] Comment on above: Order Comment: Speci men Type: BLOOD SPECIMEN Ordering Facility: [facility] Address: [address] [place] [address] Performed By: #### 2 4321-2 #### [facility] CLIA [id number] [address] [place] [address] [place] RBC (Bld) [#/Vol] 2.99 10*6/uL Low 4.20-6.00 [facility] Comment on above: Order Comment: Speci men Type: BLOOD SPECIMEN Ordering Facility: [facility] Address: [address] [place] [address] Performed By: #### 2 4321-2 #### [facility] CLIA [id number] [address] [place] [address] [place] WBC (Bld) [#/Vol] 16.57 10*3/uL High 3.70-11.00 [facility] Comment on above: Order Comment: Speci men Type: BLOOD SPECIMEN Ordering Facility: [facility] Address: [address] [place] [address] Performed By: #### 2 4321-2 #### [facility] CLIA [id number] [address] [place] [address] [place] Erythrocyte distribution width (RBC) [Ratio] 15.9 % High 11.5-15.0 [facility] Comment on above: Order Comment: Speci men Type: BLOOD SPECIMEN Ordering Facility: [facility] Address: [address] [place] [address] Performed By: #### 2 4321-2 #### [facility] CLIA [id number] [address] [place] [address] [place] Hematocrit (Bld) [Volume fraction] 31.1 % Low 39.0-51.0 [facility] Comment on above: Order Comment: Speci men Type: BLOOD SPECIMEN Ordering Facility: [facility] Address: [address] [place] [address] Performed By: #### 2 4321-2 #### [facility] CLIA [id number] [address] [place] [address] [place] Hemoglobin (Bld) [Mass/Vol] 10.5 g/dL Low 13.0-17.0 [facility] Comment on above: Order Comment: Speci men Type: BLOOD SPECIMEN Ordering Facility: [facility] Address: [address] [place] [address] Performed By: #### 2 4321-2 #### [facility] CLIA [id number] [address] [place] [address] [place] MCH (RBC) [Entitic mass] 31.9 pg Normal 26.0-34.0 [facility] Comment on above: Order Comment: Speci men Type: BLOOD SPECIMEN Ordering Facility: [facility] Address: [address] [place] [address] Performed By: #### 2 4321-2 #### [facility] CLIA [id number] [address] [place] [address] [place] MCHC (RBC) [Mass/Vol] 33.8 g/dL Normal 30.5-36.0 [facility] Comment on above: Order Comment: Speci men Type: BLOOD SPECIMEN Ordering Facility: [facility] Address: [address] [place] [address] Performed By: #### 2 4321-2 #### [facility] CLIA [id number] [address] [place] [address] [place] MCV (RBC) [Entitic vol] 94.5 fL Normal 80.0-100.0 [facility] Comment on above: Order Comment: Speci men Type: BLOOD SPECIMEN Ordering Facility: [facility] Address: [address] [place] [address] Performed By: #### 2 4321-2 #### [facility] CLIA [id number] [address] [place] [address] [place] Nucleated RBC (Bld) [#/Vol] 10*3/uL Normal <0.01 [facility] Comment on above: Order Comment: Speci men Type: BLOOD SPECIMEN Ordering Facility: [facility] Address: [address] [place] [address] Performed By: #### 2 4321-2 #### [facility] CLIA [id number] [address] [place] [address] [place] Platelet mean volume (Bld) [Entitic vol] 10.7 fL Normal 9.0-12.7 [facility] Comment on above: Order Comment: Speci men Type: BLOOD SPECIMEN Ordering Facility: [facility] Address: [address] [place] [address] Performed By: #### 2 4321-2 #### [facility] CLIA [id number] [address] [place] [address] [place] Platelets (Bld) [#/Vol] 184 10*3/uL Normal 150-400 [facility] Comment on above: Order Comment: Speci men Type: BLOOD SPECIMEN Ordering Facility: [facility] Address: [address] [place] [address] Performed By: #### 2 4321-2 #### [facility] CLIA [id number] [address] [place] [address] [place] RBC (Bld) [#/Vol] 3.29 10*6/uL Low 4.20-6.00 [facility] Comment on above: Order Comment: Speci men Type: BLOOD SPECIMEN Ordering Facility: [facility] Address: [address] [place] [address] Performed By: #### 2 4321-2 #### [facility] CLIA [id number] [address] [place] [address] [place] WBC (Bld) [#/Vol] 18.00 10*3/uL High 3.70-11.00 [facility] Comment on above: Order Comment: Speci men Type: BLOOD SPECIMEN Ordering Facility: [facility] Address: [address] [place] [address] Performed By: #### 2 4321-2 #### [facility] CLIA [id number] [address] [place] [address] [place] Erythrocyte distribution width (RBC) [Ratio] 15.7 % High 11.5-15.0 [facility] Comment on above: Order Comment: Speci men Type: BLOOD SPECIMEN Ordering Facility: [facility] Address: [address] [place] [address] Performed By: #### 3 4528-0, 35665-2 #### [facility] CLIA [id number] [address] [place] [address] [place] Hematocrit (Bld) [Volume fraction] 38.1 % Low 39.0-51.0 [facility] Comment on above: Order Comment: Speci men Type: BLOOD SPECIMEN Ordering Facility: [facility] Address: [address] [place] [address] Performed By: #### 3 4528-0, 50307-5 #### [facility] CLIA [id number] [address] [place] [address] [place] Hemoglobin (Bld) [Mass/Vol] 13.0 g/dL Normal 13.0-17.0 [facility] Comment on above: Order Comment: Speci men Type: BLOOD SPECIMEN Ordering Facility: [facility] Address: [address] [place] [address] Performed By: #### 3 4528-0, 81060-7 #### [facility] CLIA [id number] [address] [place] [address] [place] MCH (RBC) [Entitic mass] 31.9 pg Normal 26.0-34.0 [facility] Comment on above: Order Comment: Speci men Type: BLOOD SPECIMEN Ordering Facility: [facility] Address: [address] [place] [address] Performed By: #### 3 4528-0, #### [facility] CLIA [id number] [address] [place] [address] [place] MCHC (RBC) [Mass/Vol] 34.1 g/dL Normal 30.5-36.0 [facility] Comment on above: Order Comment: Speci men Type: BLOOD SPECIMEN Ordering Facility: [facility] Address: [address] [place] [address] Performed By: #### 3 4528-0, #### [facility] CLIA [id number] [address] [place] [address] [place] MCV (RBC) [Entitic vol] 93.6 fL Normal 80.0-100.0 [facility] Comment on above: Order Comment: Speci men Type: BLOOD SPECIMEN Ordering Facility: [facility] Address: [address] [place] [address] Performed By: #### 3 4528-0, 59715-2 #### [facility] CLIA [id number] [address] [place] [address] [place] Nucleated RBC (Bld) [#/Vol] 10*3/uL Normal <0.01 [facility] Comment on above: Order Comment: Speci men Type: BLOOD SPECIMEN Ordering Facility: [facility] Address: [address] [place] [address] Performed By: #### 3 4528-0, 39058-4 #### [facility] CLIA [id number] [address] [place] [address] [place] Platelet mean volume (Bld) [Entitic vol] 10.8 fL Normal 9.0-12.7 [facility] Comment on above: Order Comment: Speci men Type: BLOOD SPECIMEN Ordering Facility: [facility] Address: [facility] [place] [address] Performed By: #### 3 4528-0, 88193-3 #### [facility] CLIA [id number] [address] [place] [address] [place] Platelets (Bld) [#/Vol] 185 10*3/uL Normal 150-400 [facility] Comment on above: Order Comment: Speci men Type: BLOOD SPECIMEN Ordering Facility: [facility] Address: [address] [place] [address] Performed By: #### 3 4528-0, 05644-8 #### [facility] CLIA [id number] [address] [place] [address] [place] RBC (Bld) [#/Vol] 4.07 10*6/uL Low 4.20-6.00 [facility] Comment on above: Order Comment: Speci men Type: BLOOD SPECIMEN Ordering Facility: [facility] Address: [address] [place] [address] Performed By: #### 3 4528-0, 11476-8 #### [facility] CLIA [id number] [address] [place] [address] [place] WBC (Bld) [#/Vol] 13.36 10*3/uL High 3.70-11.00 [facility] Comment on above: Order Comment: Speci men Type: BLOOD SPECIMEN Ordering Facility: [facility] Address: [address] [place] [address] Performed By: #### 3 4528-0, 19399-1 #### [facility] CLIA [id number] [address] [place] [address] [place] CONFIRM BLOOD TYPEon 024 ABO O Normal [facility] Comment on above: Order Comment: Speci men Type: BLOOD SPECIMENOrdering Facility: [facility] Address: [address] [place] [address] Performed By: #### C ONABO ####[facility] [id number] [place] [address] [place] Rh Nom (Bld) Positive Normal [facility] Comment on above: Order Comment: Speci men Type: BLOOD SPECIMENOrdering Facility: [facility] Address: [address] [place] [address] Performed By: #### C ONABO ####[facility] [id number] [place] [id number] [place] CT Abdomen/Pelvis w/ [...] 300 Contrast amount in ml's: 100 Normal [facility] Fibrinogen PPP-mCncon 2023 Fibrinogen Coag (PPP) [Mass/Vol] 640 mg/dL High 200-400 [facility] Comment on above: Order Comment: Speci men Type: BLOOD SPECIMENOrdering Facility: [facility] Address: [address] [place] [address] Performed By: #### 6 462-6 #### [facility] CLIA [id number] [address] [place] [address] [place] [address] [place] HISTORY PHYSICALon HISTORY PHYSICAL HNO ID: [id number] Author: DEBORAH NORMAN MD Service: Colorectal Author [...] SURGERY HISTORY AND PHYSICAL NOTE Mervat Grayson [id number] Subjective CHIEF COMPLAINT: pneumoperitoneum HISTORY OF PRESENT [...] given recent AC use Discussed with 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 Emerson Herrera MD General Surgery Resident Blue Team Pager: [phone] General Surgery Colorectal Surgery On-Call Pager: [phone] Normal [facility] Magnesium SerPl-mCncon 07-23 Magnesium [Mass/Vol] 1.6 mg/dL Low 1.7-2.3 [facility] Comment on above: Order Comment: Speci men Type: BLOOD SPECIMEN [facility] Address: [address] [place] [address] Performed By: #### 3 4528-0, 90189-4 #### [facility] CLIA [id number] Magnesium [Mass/Vol] 1.6 mg/dL Low 1.7-2.3 [facility] Comment on above: Order Comment: Speci men Type: BLOOD SPECIMEN [facility] Address: [address] [place] [address] Performed By: #### 3 4528-0, 38075-7 #### [facility] CLIA [id number] [place] OPERATIVE NOon 07-23-2024 OPERATIVE NO HNO ID: [id number] Author: DEBORAH NORMAN MD Service: Colorectal Author Type: Physician Type: Operative Report Filed: 07/23/2024 05:00 Note Text: COLON AND RECTAL SURGERY OPERATIVE REPORT PATIENT NAME: Mervat Grayson ADMISSION DATE: 07/22/2024 LOG ID: [id number] SURGERY/PROCEDURE DATE: 07/22/2024 - 07/23/2024 INCISION/PROCEDURE START TIME: 1:10 AM INCISION CLOSE/PROCEDURE END TIME: 3:43 AM AGE: [age] year old SEX: male SURGEON(S)/PROCEDURALIS T(S) AND BROKER AGRICULTURAL PRODUCE(S): Surgeons and Role: * Deborah Norman MD [...] terminal ileum and the transverse colon. A ctqw-qw-afsn functional end-to-end anastomosis was created using a [...] Division of Colon and Rectal Surgery Normal [facility] PT panel Coag (PPP)on 2023 INR Coag (PPP) [Relative time] 1.0 {INR} Normal 0.9-1.3 [facility] Comment on above: Order Comment: Speci men Type: BLOOD SPECIMENOrdering Facility: [facility] Address: [address] [place] [address] Result Comment: Myrna min K Antagonist (VKA) Therapeutic Range: INR 2 to 3 (Target INR of 2.5) Note: For patients treated with VKA drugs, such as warfarin, the [employer] 2012 Guideline recommends [...] ONEILL, et al. Chest 2012, 141:7S-47S Jelena ANSARI, et al. JACC 2017, 70: 252-289 Performed By: #### 6 462-6 #### [facility] CLIA [id number] [address] [place] [address] [place] PT Coag (PPP) [Time] 11.4 s Normal 9.7-13.0 [facility] Comment on above: Order Comment: Speci men Type: BLOOD SPECIMENOrdering Facility: [facility] Address: [address] [place] [address] Performed By: #### 6 462-6 #### [facility] CLIA [id number] [address] [place] [address] [place] Phosphate SerPl-mCncon 07-23 Phosphate [Mass/Vol] 2.8 mg/dL Normal 2.7-4.8 [facility] Comment on above: Order Comment: Speci men Type: BLOOD SPECIMEN [facility] Address: [address] [place] [address] Performed By: #### 3 4528-0, 12615-1 #### [facility] CLIA [id number] [address] [place] [address] [place] Phosphate [Mass/Vol] 2.8 mg/dL Normal 2.7-4.8 [facility] Comment on above: Order Comment: Speci men Type: BLOOD SPECIMEN [facility] Address: [address] [place] [address] Performed By: #### 3 4528-0, 73155-0 #### [facility] CLIA [id number] [address] [place] [address] [place] SURGICAL PATHOLOGYon 024 CASE REPORT Normal [facility] Comment on above: Order Comment: Speci men Type: TISSUE SPECIMENOrdering Facility: [facility] Address: [address] [place] [address] Result Comment: Surg ical Pathology Report Case: [id number] Authorizing Provider: Deborah Norman MD Collected: 07/23/2024 01:16 AM Ordering Location: [facility] Received: 07/23/2024 07:14 AM Operating Room Pathologist: Zackery Josue MD Specimens: A) - Hernia Sac, umbilical hernia sac B) - Colon, Resection, right colon Performed By: #### S ####[facility] [id number] [address] [place] CLINICAL HISTORY Normal [facility] Comment on above: Order Comment: Speci men Type: TISSUE SPECIMENOrdering Facility: [facility] Address: [address] [place] [address] Result Comment: Pre- op diagnosis: Pneumoperitoneum [K66.8] Performed By: #### S ####[facility]ORYCLIA [id number] [address] [place] FINAL DIAGNOSIS Normal [facility] Comment on above: Order Comment: Speci men Type: TISSUE SPECIMENOrdering Facility: [facility] Address: [address] [place] [address] Result Comment: A. S oft tissue, umbilical [...] nodes. JEL 07/27/2024 Performed By: #### S ####[facility]ORYCLIA [id number] [address] STATES OF [facility] FINAL PERFORMING LAB Normal [facility] Comment on above: Order Comment: Speci men Type: TISSUE SPECIMENOrdering Facility: [facility] Address: [address] [place] [address] Result Comment: Diag nostic interpretation performed at [facility], [address] [place] [address] CLIA# [id number] Electronic Components Assembler: Brett Escalera M.D. Performed By: #### S ####[facility]ORYCLIA [id number] [address] [place] GROSS DESCRIPTION A. Hernia Sac Normal [facility] Comment on above: Order Comment: Speci men Type: TISSUE SPECIMENOrdering Facility: [facility] Address: [address], [place] [id number] Result Comment: Rece ived in formalin designated umbilical hernia sac is a segment of santos-purple membranous tissue with attached fibrofatty tissue measuring 4 x 2.5 x 3.4 cm. Sectioning reveals a slightly hyperemic fibrofatty cut surface. No areas of induration or nodularity are grossly appreciated. A sales representative education courses section is submitted in one cassette. B. [...] up to 0.6 cm in greatest dimension. Juvenile Counselor sections are submitted as follows: B1 perpendicular margins, B2 necrotic mucosa with serosal defect and cecum, B3 dusky mucosa ascending colon, B4 transition from normal to dilated colon, B5 hemorrhagic adhesions on serosal surface, B6 ileocecal valve, B7 appendix, B8 cross-section vessels in soft tissue, B9 lymph nodes. BF July 23, 2024 12:09 PM Gross examination performed at [facility], [address] [place] [address] CLIA # [id number] Performed By: #### S ####[facility]ORY[facility]IA [id number] [address] THERAPY NTon 07-23-2024 THERAPY NT HNO ID: [id number] Author: MILTON MAYA OT/L Service: Occupational Therapy Author Type: Occupational Therapist Type: Therapy (PT/OT/Speech/Resp) Filed: 07/23/2024 14:51 Note Text: OCCUPATIONAL THERAPY MISSED VISIT SERVICE DATE: 07/23/2024 SERVICE TIME: 1450 ROOM: [place] [address] Patient not seen due to Clinical Appropriateness. SIGNATURE: Milton Maya OT/L PATIENT NAME: Mervat Grayson DATE: July 23, 2024 TIME: 2:51 PM [facility] THERAPY NT HNO ID: [id number] Author: JENNIFER BRISENO PT Service: Physical Therapy Author Type: Physical Therapist Type: Therapy (PT/OT/Speech/Resp) Filed: 07/23/2024 14:14 Note Text: Physical Therapy Evaluation Summary SERVICE DATE: 07/23/2024 SERVICE TIME: 1336 to 1359 ROOM: [place] [address] PT 6 Clicks Score: 12 DISCHARGE RECOMMENDATIONS [...] living (ADL) TREATMENT INTERVENTIONS Evaluation, Therapeutic Activity (36548) Timed Code Treatment (minutes): 8 Skilled Treatment [...] DATE: July 23, 2024 TIME: 2:13 PM [facility] THERAPY NT HNO ID: [id number] Author: JENNIFER BRISENO PT Service: Physical Therapy Author Type: Physical Therapist Type: Therapy (PT/OT/Speech/Resp) Filed: 07/23/2024 10:34 Note Text: PHYSICAL THERAPY MISSED VISIT SERVICE DATE: 07/23/2024 SERVICE TIME: 1033 ROOM: [place] [address] Patient not seen due to Clinical Appropriateness. Patient hypotensive per RN. PT will hold evaluation at this time SIGNATURE: Jennifer Briseno PT PATIENT NAME: Mervat Grayson DATE: July 23, 2024 TIME: 10:34 AM [facility] aPTT PPPon 07-23-2024 aPTT Coag (PPP) [Time] 31.0 s Normal 23.0-32.4 [facility] Comment on above: Order Comment: Speci men Type: BLOOD SPECIMENOrdering Facility: [facility] Address: [address] [place] [address] Performed By: #### 6 462-6 #### [facility] CLIA [id number] [address] [place] [address] [place] [address] [place] Basic metabolic 2000 panelon 07-22-2024 Anion gap [Moles/Vol] 12 mmol/L Normal 8-15 [facility] Comment on above: Order Comment: Speci men Type: BLOOD SPECIMEN [facility] Address: [address] [place] [address] Performed By: #### 3 4528-0, 35005-9 #### [facility] CLIA [id number] [address] [place] [address] [place] Calcium [Mass/Vol] 8.8 mg/dL Normal 8.5-10.2 [facility] Comment on above: Order Comment: Speci men Type: BLOOD SPECIMEN [facility] Address: [address] [place] [address] Performed By: #### 3 4528-0, 75114-8 #### [facility] CLIA [id number] [address] [place] [address] [place] Chloride [Moles/Vol] 100 mmol/L Normal 98-107 [facility] Comment on above: Order Comment: Speci men Type: BLOOD SPECIMEN [facility] Address: [address] [place] [address] Performed By: #### 3 4528-0, 86885-3 #### [facility] CLIA [id number] [place] [id number] [place] CO2 [Moles/Vol] 23 mmol/L Normal 22-30 [facility] Comment on above: Order Comment: Speci men Type: BLOOD SPECIMEN [facility] Address: [address] [place] [address] Performed By: #### 3 4528-0, 88468-4 #### [facility] CLIA [id number] [place] [address] [place] Creatinine [Mass/Vol] 1.06 mg/dL Normal 0.73-1.22 [facility] Comment on above: Order Comment: Speci men Type: BLOOD SPECIMEN [facility] Address: [address] [place] [address] Performed By: #### 3 4528-0, 07233-5 #### [facility] CLIA [id number] [place] [address] [place] Creatinine and Glomerular filtration rate.predicted panel (S/P/Bld) 75 mL/min/1.73m??? Normal >=60 [facility] Comment on above: Order Comment: Speci men Type: BLOOD SPECIMEN [facility] Address: [address] [place] [address] Result Comment: Rebekah mated Glomerular Filtration Rate [...] actual GFR. Performed By: #### 3 4528-0, 05744-9 #### [facility] CLIA [id number] [address] [place] [address] [place] Glucose [Mass/Vol] 104 mg/dL High 74-99 [facility] Comment on above: Order Comment: Speci men Type: BLOOD SPECIMEN [facility] Address: [address] [place] [address] Result Comment: The [place] [employer] (ADA) provides guidance for cutoff [...] Standards of Medical Care in Diabetes 2016, [place] [employer] Association. Diabetes Care. 2016.39(Suppl 1). Performed By: #### 3 4528-0, 88163-4 #### [facility] CLIA [id number] [address] [place] [address] [place] Potassium [Moles/Vol] 3.7 mmol/L Normal 3.7-5.1 [facility] Comment on above: Order Comment: Nazario brooks Type: BLOOD SPECIMEN [facility] Address: [address] [place] [address] Performed By: #### 3 4528-0, 14130-1 #### [facility] CLIA [id number] [address] [place] [address] [place] Sodium [Moles/Vol] 135 mmol/L Low 136-144 [facility] Comment on above: Order Comment: Nazario brooks Type: BLOOD SPECIMEN [facility] Address: [address] [place] [address] Performed By: #### 3 4528-0, 88801-2 #### [facility] CLIA [id number] [address] [place] [address] [place] Urea nitrogen [Mass/Vol] 11 mg/dL Normal 9-24 [facility] Comment on above: Order Comment: Nazario brooks Type: BLOOD SPECIMEN [facility] Address: [address] [place] [address] Performed By: #### 3 4528-0, 45956-3 #### [facility] CLIA [id number] [address] [place] [address] [place] CBC panel Auto (Bld)on 07-22 Erythrocyte distribution width (RBC) [Ratio] 15.9 % High 11.5-15.0 [facility] Comment on above: Order Comment: Speci men Type: BLOOD SPECIMEN [facility] Address: [address] [place] [address] Performed By: #### 2 4321-2 #### [facility] CLIA [id number] [address] [place] [address] [place] Hematocrit (Bld) [Volume fraction] 39.9 % Normal 39.0-51.0 [facility] Comment on above: Order Comment: Speci men Type: BLOOD SPECIMEN [facility] Address: [address] [place] [address] Performed By: #### 2 4321-2 #### [facility] CLIA [id number] [address] [place] [address] [place] Hemoglobin (Bld) [Mass/Vol] 13.5 g/dL Normal 13.0-17.0 [facility] Comment on above: Order Comment: Speci men Type: BLOOD SPECIMEN [facility] Address: [address] [place] [address] Performed By: #### 2 4321-2 #### [facility] CLIA [id number] [address] [place] [address] [place] MCH (RBC) [Entitic mass] 31.5 pg Normal 26.0-34.0 [facility] Comment on above: Order Comment: Speci men Type: BLOOD SPECIMEN [facility] Address: [address] [place] [address] Performed By: #### 2 4321-2 #### [facility] CLIA [id number] [address] [place] [address] [place] MCHC (RBC) [Mass/Vol] 33.8 g/dL Normal 30.5-36.0 [facility] Comment on above: Order Comment: Speci men Type: BLOOD SPECIMEN [facility] Address: [address] [place] [address] Performed By: #### 2 4321-2 #### [facility] CLIA [id number] [address] [place] [address] [place] MCV (RBC) [Entitic vol] 93.2 fL Normal 80.0-100.0 [facility] Comment on above: Order Comment: Speci men Type: BLOOD SPECIMEN [facility] Address: [address] [place] [address] Performed By: #### 2 4321-2 #### [facility] CLIA [id number] [address] [place] [address] [place] Nucleated RBC (Bld) [#/Vol] 10*3/uL Normal <0.01 [facility] Comment on above: Order Comment: Speci men Type: BLOOD SPECIMEN [facility] Address: [address] [place] [address] Performed By: #### 2 4321-2 #### [facility] CLIA [id number] [address] [place] [address] [place] Platelet mean volume (Bld) [Entitic vol] 10.3 fL Normal 9.0-12.7 [facility] Comment on above: Order Comment: Speci men Type: BLOOD SPECIMEN [facility] Address: [address] [place] [address] Performed By: #### 2 4321-2 #### [facility] CLIA [id number] [address] [place] [address] [place] Platelets (Bld) [#/Vol] 185 10*3/uL Normal 150-400 [facility] Comment on above: Order Comment: Speci men Type: BLOOD SPECIMEN [facility] Address: [address] [place] [address] Performed By: #### 2 4321-2 #### [facility] CLIA [id number] [address] [place] [address] [place] RBC (Bld) [#/Vol] 4.28 10*6/uL Normal 4.20-6.00 [facility] Comment on above: Order Comment: Speci men Type: BLOOD SPECIMEN [facility] Address: [address] [place] [address] Performed By: #### 2 4321-2 #### [facility] CLIA [id number] [place] [address] [place] WBC (Bld) [#/Vol] 15.98 10*3/uL High 3.70-11.00 [facility] Comment on above: Order Comment: Speci men Type: BLOOD SPECIMEN [facility] Address: [address] [place] [address] Performed By: #### 2 4321-2 #### [facility] CLIA [id number] [place] [address] OF [facility] CBC w/ Auto Diffon 4 Basophils/100 WBC (Bld) 0.2 % Normal 0.0-2.0 [facility] Comment on above: Performed By: #### 2 001973 #### [facility] [address] [place] [address] Basophils/Leukocytes Auto (Bld) [Pure # fraction] 0.0 E9/L Normal 0.0-0.2 [facility] Comment on above: Performed By: #### 2 526031 #### [facility] [address] [place] [address] Eosinophils (Bld) [#/Vol] 0.1 E9/L Normal 0.0-0.5 [facility] Comment on above: Performed By: #### 2 904858 #### [facility] [address] [place] [address] Eosinophils/100 WBC (Bld) 0.5 % Normal 0.0-8.0 [facility] Comment on above: Performed By: #### 2 581378 #### [facility] [address] [place] [address] Erythrocyte distribution width (RBC) [Ratio] 15.9 % High 10.9-14.2 [facility] Comment on above: Performed By: #### 2 410548 #### [facility] [address] [place] [address] Hematocrit (Bld) [Volume fraction] 38.0 % Normal 37.7-49.0 [facility] Comment on above: Performed By: #### 2 780575 #### [facility] [address] [place] [address] Hemoglobin (Bld) [Mass/Vol] 12.8 g/dL Low 13.5-17.5 [facility] Comment on above: Performed By: #### 2 043976 #### [facility] [address] [place] [address] Lymphocytes (Bld) [#/Vol] 0.7 E9/L Low 1.0-4.0 [facility] Comment on above: Performed By: #### 2 958895 #### [facility] [address] [place] [address] Lymphocytes/100 WBC (Bld) 4.9 % Low 14.0-50.0 [facility] Comment on above: Performed By: #### 2 934772 #### [facility] [address] [place] [address] MCH (RBC) [Entitic mass] 31.7 pg Normal 27.0-34.0 [facility] Comment on above: Performed By: #### 2 470415 #### [facility] [address] [place] [address] MCHC (RBC) [Mass/Vol] 33.8 g/dL Normal 31.4-36.0 [facility] Comment on above: Performed By: #### 2 623080 #### [facility] [address] [place] [address] MCV (RBC) [Entitic vol] 94.0 fL Normal 80.0-100.0 [facility] Comment on above: Performed By: #### 2 686686 #### [facility] [address] [place] [address] Monocytes (Bld) [#/Vol] 0.6 E9/L Normal 0.2-1.0 [facility] Comment on above: Performed By: #### 2 248568 #### [facility] [address] [place] [address] Neutrophils (Bld) [#/Vol] 12.5 E9/L High 2.0-7.5 [facility] Comment on above: Performed By: #### 2 409532 #### [facility] [address] [place] [address] Neutrophils/100 WBC (Bld) 90.2 % High 36.0-75.0 [facility] Comment on above: Performed By: #### 2 011769 #### [facility] [address] [place] [address] Platelet 202.0 E9/L Normal 150.0-500.0 [facility] Comment on above: Performed By: #### 2 866904 #### [facility] [address] [place] [address] Platelet mean volume (Bld) [Entitic vol] 9.1 fL Normal 6.4-10.8 [facility] Comment on above: Performed By: #### 2 015783 #### [facility] [address] [place] [address] RBC (Bld) [#/Vol] 4.0 E12/L Low 4.3-5.9 [facility] Comment on above: Performed By: #### 2 197953 #### [facility] [address] [place] [address] WBC corrected for nucl RBC Auto (Bld) [#/Vol] 13.9 E9/L High 4.0-11.0 [facility] Comment on above: Performed By: #### 2 854073 #### [facility] [address] [place] [address] CHEMISTRYOrdered By: SYSTEM SYSTEM on 07-22-2024 Lactic [...] 07-22-2024 Albumin [Mass/Vol] 3.6 g/dL Normal 3.3-5.0 [facility] Comment on above: Performed By: #### 2 458965 #### [facility] [address] [place] [address] Albumin/Globulin (S) [Mass conc ratio] 1.3 Normal 1.1-2.2 [facility] Comment on above: Performed By: #### 2 965497 #### [facility] [address] [place] [address] ALP [Catalytic activity/Vol] 78 Int._Unit/L Normal 21-98 [facility] Comment on above: Performed By: #### 2 754341 #### [facility] [address] [place] [address] ALT No additional P-5'-P [Catalytic activity/Vol] 8 Int._Unit/L Normal 6-46 [facility] Comment on above: Performed By: #### 2 954442 #### [facility] [address] [place] [address] Anion gap [Moles/Vol] 9 mmol/L Normal 6-16 [facility] Comment on above: Performed By: #### 2 828606 #### [facility] [address] [place] [address] AST [Catalytic activity/Vol] 11 Int._Unit/L Normal 5-43 [facility] Comment on above: Performed By: #### 2 355780 #### [facility] [address] [place] [address] Bilirubin [Mass/Vol] 2.3 mg/dL High 0.0-1.1 [facility] Comment on above: Performed By: #### 2 959658 #### [facility] [address] [place] [address] Calcium [Mass/Vol] 8.8 mg/dL Low 8.9-11.1 [facility] Comment on above: Performed By: #### 2 257081 #### [facility] [address] [place] [address] Chloride [Moles/Vol] 104 mmol/L Normal 101-111 [facility] Comment on above: Performed By: #### 2 271112 #### [facility] [address] [place] [address] CO2 [Moles/Vol] 27 mmol/L Normal 21-31 [facility] Comment on above: Performed By: #### 2 742370 #### [facility] [address] [place] [address] Creatinine [Mass/Vol] 1.0 mg/dL Normal 0.5-1.3 [facility] Comment on above: Performed By: #### 2 881708 #### [facility] [address] [place] [address] Globulin (S) [Mass/Vol] 2.7 g/dL Normal 1.4-4.0 [facility] Comment on above: Performed By: #### 2 681950 #### [facility] [address] [place] [address] Glucose [Mass/Vol] 117 mg/dL Normal 55-199 [facility] Comment on above: Performed By: #### 2 011347 #### [facility] [address] [place] [address] Potassium [Moles/Vol] 3.4 mmol/L Low 3.5-5.3 [facility] Comment on above: Performed By: #### 2 424546 #### [facility] [address] [place] [address] Protein [Mass/Vol] 6.3 g/dL Normal 6.0-7.8 [facility] Comment on above: Performed By: #### 2 [id number] #### [facility] [address] [place] [address] Sodium [Moles/Vol] 137 mmol/L Normal 135-145 [facility] Comment on above: Performed By: #### 2 [id number] #### [facility] [address] [place] [address] Urea nitrogen [Mass/Vol] 13 mg/dL Normal 5-21 [facility] Comment on above: Performed By: #### 2 [id number] #### [facility] [address] [place] [address] Urea nitrogen/Creatinine [Mass ratio] 13 No Units Normal 10-20 [facility] Comment on above: Performed By: #### 2 [id number] #### [facility] [address] [place] [address] ED Clinical Summaryon 2023 ED Clinical Summary ED Clinical Summary [address] [address] ED Clinical Summary Person Information Name: MERVAT GRAYSON [facility] Age: 73 Years : 1950 Sex: Male Language: Maltese PCP: Lorenzo MARIN DO Marital Status: Visit [...] 07/22/2024 22:09:19 07/22/2024 22:09:19 07/22/2024 22:09:19 ADDRESS: [address] [place] [phone] PHYS DOC NOTES: MEDICAL INFORMATION: Prescriptions Given: [...] INFORMATION: Instructions: Follow up: DIAGNOSIS: Pneumoperitoneum Normal [facility] ED Note-Physicianon 10-02-20 24 ED Note-Physician ED Note-Physician Patient is signed [...] and spoke with Dr Melendez 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 After her evaluation she was able to speak with Dr Norman at [facility] who follows with the patient for colorectal surgery. He recommended the patient be transferred ED to ED and that he would accept the patient. ED diagnosis: Pneumoperitoneum Normal [facility] Comment on above: Result Comment: Jocelyne starkally Signed By: Shamir Donis DO\.br\Date and Time Signed: 07/22/24 20:56 EDT ED Note-Physician ED Note-Physician Basic Information Time Seen: Joseph ESCOBAR, Celeste Cavanaugh 07/22/2024 17:01 Chief Complaint patient c/o abdominal pain that started yesterday after colonoscopy at [facility]. states that pain is at umbilical hernia- [...] Abdomen/Pelvis w/ Contrast eGFR Rapid COVID Antigen ([facility]) Troponin 0 Hr. UA with Cult Rflx Disposition Plan Discharge Prescription List Prescriptions No active prescription medications Follow-up No qualifying data available Attestation This visit was performed by both the physician and an APC. I performed all aspects of the MDM as documented. This report was transcribed using voice recognition software. Every effort was made to ensure accuracy, however, inadvertently computerized compensation specialist management be present. Problem List/Past Medical History Ongoing BMI 31.0-31.9,adult BPH with urinary obstruction Cervical spinal stenosis Erectile dysfunction Kidney stones Neck pain without injury Non-ischemic cardiomyopathy Prostate cancer screening RA - Rheumatoid arthritis Rectal cancer Tobacco non-user Historical No qualifying data Procedure/Surgical History Urodynamics (08/22/2023), Cystoscopy (06/04/2023), Sigmoi (more content not included)... Normal [facility] Comment on above: Result Comment: Elec tronically Signed By: Celeste Ruiz PA-C\.br\Date and Time Signed: 07/22/24 18:56 EDT\.br\Electronically Co-Signed By: Yuridia Houser M.D.\.br\Date and Time Co-Signed: 07/22/24 19:10 EDT ED PROV NOTEon 07-22-2024 ED PROV NOTE HNO ID: [id number] Author: MERNA MARIN MD Service: Emergency Medicine Author Type: Physician Type: ED Provider Notes Filed: 07/23/2024 22:10 Note Text: ED Provider Note Patient Name: Mervat Grayson : 1950 SERVICE DATE: 07/22/24 History Patient presents with: Abdominal Pain: Pt transferred from [facility] for a pneumoperitoneum post colonoscopy. Colonoscopy was done yesterday at [place]. Pt endorsing abdominal pain. HPI TRANSFER -abdominal [...] ED 2 OR Clinical Impressions as of 07/23/240 Pneumoperitoneum Generalized abdominal pain Chronic anticoagulation Rectal [...] 07/22/24 2354 MERNA MARIN 07/23/24 2210 Normal [facility] ED Patient Education Noteon 07-22-2024 ED Patient Education Note ED Patient Education Note Normal [facility] ED Patient Summaryon 024 ED Patient Summary ED Patient Summary [address] [address] Patient Discharge Instructions Person Information Name: MERVAT GRAYSON Age: 73 Years Arrival Date: 07/22/2024 16:54:04 Discharge Diagnosis: Pneumoperitoneum Primary Care Physician: Lorenzo MARIN DO Provider Information Primary Provider: Yuridia Houser M.D. Advanced Nursing Information Systems Coordinator:Celeste Ruiz PA-C The exam and treatment you received in the Emergency Department were for an urgent problem and are not intended as complete care. It is important that you follow up with a doctor, nurse practitioner, or physician?s gallery assistant for ongoing care. If your symptoms [...] opioids can be used to help relieve jeykgwas-ku-qfwptu pain and are often prescribed following a [...] (www.fda.gov/Drugs/Reso urcesForYou). ? Visit www.cdc.gov/drugoverdos e to learn about the risks of opioids abuse and overdose. ? If you believe you may be struggling with addiction, tell your health home health care worker and ask for guidance or call SAMHSA?S National Helpline at 6-165-602-OEHC. v Source: US Department of Health and Human Services/Center for Disease Control & Prevention [facility] Medication (more content not included)... Normal [facility] Extra Blueon 07-22-2024 Tube Collected Plasma Yes Invalid Interpretation Code [facility] Comment on above: Performed By: #### 1 [id number] #### [facility] [address] [place] [address] Fibrinogen PPP-mCncon 2023 Fibrinogen Coag (PPP) [Mass/Vol] 618 mg/dL High 200-400 [facility] Comment on above: Order Comment: Speci men Type: BLOOD SPECIMENOrdering Facility: [facility] Address: [address] [place] [address] Performed By: #### 6 00-7 #### [facility] CLIA [id number] [address] [facility] DESK [id number] [id number] [place] [facility] HEMATOLOGYOrdered By: SYSTEM SYSTEM on 07-22-2024 Basophils/100 [...] Lactic Acid Lvl 0.8 mmol/L Normal 0.5-2.2 [facility] Comment on above: Performed By: #### 2 [id number] #### [facility] [address] [place] [address] MICRO OTHER TESTSOrdered By: Nida Ca on 07-22-2024 Rapid COV Int NEG Ctl Pass (07/22/24 6:03 PM) Normal [facility] Sero Rapid COV Int POS Ctl Pass (07/22/24 6:03 PM) Normal [facility] Sero SARS-CoV+SARS-CoV-2 (COVID-19) Ag IA.rapid Ql (Resp) Not Detected 2 (07/22/24 6:03 PM) Normal Not Detected [facility] Comment on above: Interpretive Data: Kadie diop HappyBox Veritor System for Rapid Detection of SARS-CoV-2 [...] other viruses or pathogens; and, in the [facility], this test is only authorized for the duration of the declaration that circumstances exist justifying the authorization of emergency use of in vitro diagnostics for detection and/or diagnosis of the virus that causes COVID-19 under Section 564(b)(1) of the Act, 21 U.S.C. 360bbb-3(b)(1), unless the authorization is terminated or revoked sooner. Magnesium SerPl-mCncon 07-22 Magnesium [Mass/Vol] 1.8 mg/dL Normal 1.7-2.3 [facility] Comment on above: Order Comment: Nazario brooks Type: BLOOD SPECIMEN [facility] Address: [address] [place] [address] Performed By: #### 3 4528-0, 89928-8 #### [facility] CLIA [id number] [address] [place] [address] [place] PT panel Coag (PPP)on 2023 INR Coag (PPP) [Relative time] 1.3 {INR} Normal 0.9-1.3 [facility] Comment on above: Order Comment: Nazario brooks Type: BLOOD SPECIMENOrdering Facility: [facility] Address: [address] [place] [address] Result Comment: Myrna min K Antagonist (VKA) Therapeutic Range: INR 2 to 3 (Target INR of 2.5) Note: For patients treated with VKA drugs, such as warfarin, the [employer] 2012 Guideline recommends [...] GH, et al. Chest 2012, 141:7S-47S Jelena RA, et al. [facility] 2017, 70: 252-289 Performed By: #### 6 00-7 #### [facility] CLIA [id number] [address] [place] [address] [place] PT Coag (PPP) [Time] 14.5 s High 9.7-13.0 [facility] Comment on above: Order Comment: Speci men Type: BLOOD SPECIMENOrdering Facility: [facility] Address: [address] [place] [address] Performed By: #### 6 00-7 #### [facility] CLIA [id number] [address] [place] [address] [place] Phosphate SerPl-mCncon 07-22 Phosphate [Mass/Vol] 2.5 mg/dL Low 2.7-4.8 [facility] Comment on above: Order Comment: Speci men Type: BLOOD SPECIMEN [facility] Address: [address] [place] [address] Performed By: #### 3 4528-0, 08460-7 #### [facility] CLIA [id number] [place] [address] [place] Rapid COVID Antigen ([facility])on 07-22-2024 Rapid COV Int NEG Ctl Pass Normal Fis [facility] Comment on above: Performed By: #### 2 [id number] #### [facility] [address] [place] [address] Rapid COV Int POS Ctl Pass Normal Fis her [facility] Comment on above: Performed By: #### 2 [id number] #### [facility] [address] [place] [address] SARS-CoV+SARS-CoV-2 (COVID-19) Ag IA.rapid Ql (Resp) Not detected Normal Not Detected [facility] Comment on above: Result Comment: The [place] Windmill[employer]? System for Rapid Detection of SARS-CoV-2 is [...] or revoked sooner. Performed By: #### 2 [id number] #### [facility] [address] [place] [address] TYPE + SCREENon 07-22-2024 ABO O Normal [facility] Comment on above: Order Comment: Speci men Type: BLOOD SPECIMENOrdering Facility: [facility] Address: [address] [place] [address] Performed By: #### T SCR ####[facility] [id number] [place] [id number] [facility] Rh Nom (Bld) Positive Normal [facility] Comment on above: Order Comment: Speci men Type: BLOOD SPECIMENOrdering Facility: [facility] Address: [address] [place] [address] Performed By: #### T SCR ####[facility] [id number] [place] [id number] [facility] TYPE AND SCREEN EXPIRATION 07/25/2024 23:59 Normal [facility] Comment on above: Order Comment: Speci men Type: BLOOD SPECIMENOrdering Facility: [facility] Address: [address] [place] [address] Performed By: #### T SCR ####[facility] [id number] [place] [id number] [facility] Troponin 0 Hr.on 07-22-2024 Troponin HS 10.10 pg/mL Low 15.90-38.40 [facility] Comment on above: Result Comment: The 95% CI (Confidence Interval) PPV (Positive Predictive Value) for myocardial infarction in females is 38 pg/mL, in males 51 pg/mL. The results should be used in conjunction with clinical conditions of myocardial infarction. (Access High Sensitivity Troponin I Instructions For Use, Korina Brunson, May 2018) Performed By: #### 1 [id number] #### [facility] [address] [place] [address] aPTT PPPon 07-22-2024 aPTT Coag (PPP) [Time] 40.1 s High 23.0-32.4 [facility] Comment on above: Order Comment: Speci men Type: BLOOD SPECIMENOrdering Facility: [facility] Address: [address] [place], [place] [address] Performed By: #### 6 00-7 #### [facility] CLIA [id number] [address] [facility] DESK [id number] [place], [place] [id number] [place] eGFRon 07-22-2024 eGFR 80 mL/min/1.73 m2 Normal >=59 [facility] Comment on above: Performed By: #### 1 [id number] #### [facility] [address] [place] [address] ANES POSTPROC EVALon 024 ANES POSTPROC EVAL HNO ID: [id number] Author: BRAD VILLEDA MD Service: Anesthesiology Author Type: Physician Type: Anesthesia Postprocedure Evaluation Filed: 07/21/2024 10:50 Note Text: POST ANESTHESIA EVALUATION NOTE : 1950 Procedure Summary Date: 07/21/24 Room / Location: Procedures Anesthesia Start: 920 Anesthesia Stop: 1000 Procedure: COLONOSCOPY SCREENING Diagnosis: Encounter for follow-up [...] July 21, 2024 TIME: 10:50 AM CSN: [id number] [facility] ANES PRE-OPon 07-21-2024 ANES PRE-OP HNO ID: [id number] Author: BRAD VILLEDA MD Service: Anesthesiology Author [...] BP 154/91 07/21/24 0900 Pulse Resp 18 07/21/24 09 Temp 36.1 ?C (97 ?F) 07/21/24 09 SpO2 98 % 07/21/24 09 Outpatient Medications as of 07/21/2024 Medication Sig [...] July 21, 2024 TIME: 9:04 AM CSN: [id number] Normal [facility] Colonoscopyon 07-21-2024 Colonoscopy [facility] Gastrointestinal Endoscopy Patient Name: Mervat Grayson Procedure Date: 07/21/2024 9:18 AM Date of : 1950 Admit Type: Outpatient Age: 73 Room: [place] [address] Gender: Male Note Status: Finalized Attending MD: Deborah Norman MD, [id number] Procedure: Colonoscopy Indications: High risk colon cancer [...] the patient. Procedure Code(s): --- Professional --- 97153, Colonoscopy, flexible; diagnostic, including collection of specimen(s) by brushing or washing, when performed (separate procedure) CPT copyright 2020 [employer]. All rights reserved. The codes documented in this report are preliminary and upon presser machine review may be revised to meet current [...] Blood Loss: Estimated blood loss: none. Normal [facility] Colonoscopy Study observatio non 07-21-2024 [facility] Gastrointestinal Endoscopy Patient Name: Mervat Grayson Procedure Date: 07/21/2024 9:18 AM Date of : 1950 Admit Type: Outpatient Age: 73 Room: [place] [address] Gender: Male Note Status: Finalized Attending MD: Deborah Norman MD, [id number] Procedure: Colonoscopy Indications: High risk colon cancer [...] the patient. Procedure Code(s): --- Professional --- 57437, Colonoscopy, fl (more content not included)... PROVATION [facility] Radiology Study observation (narrative) [facility] No Panel Informationon 07-14 Type of biopsy: [...] yes Amount of lidocaine used: 0.5 cc [facility] [place] No Panel Informationon 07-08 JANINE Goss 07/08/2024 [...] the procedure well with no immediate complications [facility] XR SHOULDER LEFT (MIN 2 VIEW S)on [...] Deborah Valdovinos MD 03/27/24 Final result Normal [facility] Flexible sigmoidoscopy study on 02-25-2024 [facility] Gastrointestinal Endoscopy Patient Name: Mervat Grayson Procedure Date: 02/25/2024 11:24 AM Date of : 1950 Admit Type: Outpatient Age: 73 Room: [place] [address] Gender: Male Note Status: Finalized Attending MD: [...] 4-5 months Procedure Code(s): --- Professional --- 65043, 52, Sigmoidoscopy, flexible; diagnostic, including collection of specimen(s) by brushing or washing, when performed (separate procedure) CPT copyright 2020 [employer]. All rights reserved. The codes documented in this report are preliminary and upon presser machine review may be revised to meet current [...] Blood Loss: Estimated blood loss: none. [facility] Radiology Study observation (narrative) [facility] CHEMISTRYOrdered By: SYSTEM SYSTEM on 02-14-2024 Prostate specific Ag [Mass/Vol] 0.1 ng/mL Normal 0.1 - 3.5 ng/mL [facility] Comment on above: Interpretive Data: T he concentration of PSA determined by different manufacturers can vary due to differences in assay methods and reagent specificity. Values obtained from different assay methods cannot be used interchangeably. The methodology used for this result was chemiluminescence using [employer]'s Access Hybritech PSA reagent. CBC W Auto Differential pane l (Bld)on 02-11-2024 Basophils (Bld) [#/Vol] 0.05 10*3/uL [facility] Basophils/100 WBC (Bld) 0.8 % [facility] Differential cell count method Nom (Bld) Auto [facility] Eosinophils (Bld) [#/Vol] 0.20 10*3/uL [facility] Eosinophils/100 WBC (Bld) 3.3 % [facility] Erythrocyte distribution width (RBC) [Ratio] 15.8 % High 11.5 - 15.0 % [facility] Hematocrit (Bld) [Volume fraction] 40.2 % 39.0 - 51.0 % [facility] Hemoglobin (Bld) [Mass/Vol] 13.1 g/dL 13.0 - 17.0 g/dL [facility] Immature granulocytes (Bld) [#/Vol] 0.07 10*3/uL [facility] Immature granulocytes/100 WBC (Bld) 1.1 % [facility] Interpretation and review of laboratory results Abnormal [facility] Lymphocytes (Bld) [#/Vol] 1.05 10*3/uL [facility] Lymphocytes/100 WBC (Bld) 17.1 % [facility] MCH (RBC) [Entitic mass] 31.5 pg 26.0 - 34.0 pg [facility] MCHC (RBC) [Mass/Vol] 32.6 g/dL 30.5 - 36.0 g/dL [facility] MCV (RBC) [Entitic vol] 96.6 fL 80.0 - 100.0 fL [facility] Monocytes (Bld) [#/Vol] 0.64 10*3/uL NINF [facility] Monocytes/100 WBC (Bld) 10.4 % [facility] Neutrophils (Bld) [#/Vol] 4.14 10*3/uL [facility] Neutrophils/100 WBC (Bld) 67.3 % [facility] Nucleated RBC (Bld) [#/Vol] NINF [facility] Nucleated RBC/100 WBC (Bld) [Ratio] 0.0 % /100 WBC [facility] Platelet mean volume (Bld) [Entitic vol] 9.9 fL 9.0 - 12.7 fL [facility] Platelets (Bld) [#/Vol] 226 10*3/uL [facility] RBC (Bld) [#/Vol] 4.16 10*6/uL Low 4.20 - 6.0 0 m/uL [facility] WBC (Bld) [#/Vol] 6.15 10*3/uL [facility] Comprehensive metabolic 2000 panelOrdered By: Ti Dooley on 02-11-2024 Albumin [Mass/Vol] 3.6 g/dL Low 3.9 - 4.9 g/dL [facility] ALP [Catalytic activity/Vol] 90 U/L 38 - 113 U/L [facility] ALT [Catalytic activity/Vol] 10 U/L 10 - 54 U/L [facility] Anion gap [Moles/Vol] 10 mmol/L 9 - 18 mmol/L [facility] AST [Catalytic activity/Vol] 14 U/L 14 - 40 U/L [facility] Bilirubin [Mass/Vol] 0.4 mg/dL 0.2 - 1 .3 mg/dL [facility] Calcium [Mass/Vol] 9.4 mg/dL 8.5 - 10. 2 mg/dL [facility] Chloride [Moles/Vol] 108 mmol/L High 97 - 10 5 mmol/L [facility] CO2 [Moles/Vol] 24 mmol/L 22 - 30 mmol/L [facility] Creatinine [Mass/Vol] 1.27 mg/dL High 0.73 - 1.22 mg/dL [facility] GFR/1.73 sq M.predicted among non-blacks MDRD (S/P/Bld) [Vol rate/Area] 60 mL/min/{1.73_m2} - PINF [facility] Comment on above: Estimated Glomerular Filtration Rate [...] 102 mg/dL High 74 - 99 mg/dL [facility] Comment on above: The [place] Diab[employer] s Association (ADA) provides guidance for [...] Standards of Medical Care in Diabetes 2016, [place] [employer]. Diabetes Care. 2016.39(Suppl 1). Interpretation and review of laboratory results Abnormal [facility] Potassium [Moles/Vol] 4.1 mmol/L 3.7 - 5.1 mmol/L [facility] Protein [Mass/Vol] 5.9 g/dL Low 6.3 - 8.0 g/dL [facility] Sodium [Moles/Vol] 142 mmol/L 136 - 144 mmol/L [facility] Urea nitrogen [Mass/Vol] 17 mg/dL 9 - 24 mg/dL [facility] CEA BLDon 12-23-2023 Carcinoembryonic Ag [Mass/Vol] 1.9 ng/mL NINF - 2.9 ng/mL [facility] Comment on above: Carcinoembryonic ant igen test is used as an aid in monitoring response to treatment or recurrence in patients with established colorectal, breast, lung, prostatic, pancreatic, and ovarian carcinomas. Clinical correlation is required. The Carcinoembryonic antigen test was performed using the [employer] DXI paramagnetic particle chemiluminescent immunoassay method. Results obtained with different assay methods or kits cannot be used interchangeably. Carcinoembryonic Ag [Mass/Vo l]on 12-23-2023 Interpretation and review of laboratory results Normal [facility] CBC W Auto Differential pane l (Bld)on 12-20-2023 Basophils (Bld) [#/Vol] 0.04 10*3/uL [facility] Basophils/100 WBC (Bld) 0.4 % [facility] Differential cell count method Nom (Bld) Auto [facility] Eosinophils (Bld) [#/Vol] 0.04 10*3/uL [facility] Eosinophils/100 WBC (Bld) 0.4 % [facility] Erythrocyte distribution width (RBC) [Ratio] 15.4 % High 11.5 - 15.0 % [facility] Hematocrit (Bld) [Volume fraction] 44.3 % 39.0 - 51.0 % [facility] Hemoglobin (Bld) [Mass/Vol] 14.5 g/dL 13.0 - 17.0 g/dL [facility] Immature granulocytes (Bld) [#/Vol] 0.07 10*3/uL [facility] Immature granulocytes/100 WBC (Bld) 0.8 % [facility] Interpretation and review of laboratory results Abnormal [facility] Lymphocytes (Bld) [#/Vol] 1.04 10*3/uL [facility] Lymphocytes/100 WBC (Bld) 11.6 % [facility] MCH (RBC) [Entitic mass] 31.0 pg 26.0 - 34.0 pg [facility] MCHC (RBC) [Mass/Vol] 32.7 g/dL 30.5 - 36.0 g/dL [facility] MCV (RBC) [Entitic vol] 94.9 fL 80.0 - 100.0 fL [facility] Monocytes (Bld) [#/Vol] 0.76 10*3/uL [facility] Monocytes/100 WBC (Bld) 8.5 % [facility] Neutrophils (Bld) [#/Vol] 7.03 10*3/uL [facility] Neutrophils/100 WBC (Bld) 78.3 % [facility] Nucleated RBC (Bld) [#/Vol] NINF [facility] Nucleated RBC/100 WBC (Bld) [Ratio] 0.0 % /100 WBC [facility] Platelet mean volume (Bld) [Entitic vol] 10.1 fL 9.0 - 12.7 fL [facility] Platelets (Bld) [#/Vol] 214 10*3/uL [facility] RBC (Bld) [#/Vol] 4.67 10*6/uL 4.20 - 6.0 0 m/uL [facility] WBC (Bld) [#/Vol] 8.98 10*3/uL [facility] CT Abdomen and Pelvis W molly raskadie Ivelisse 12-20-2023 IMPRESSION: 1. No evidence of metastatic [...] any questions regarding this interpretation, please call [phone]. If you are unable to reach us at the number above, please feel free to contact [facility] eRadiology at [phone]. DIVISION OF RADIOLOGY * * *Final Report* * * DATE OF EXAM: Dec 20 2023 10:21AM [facility] 0530 - CT ABD/PEL W [...] chest CT performed will be reported separately. Court Magistrate (topogram) images: No additional findings. DIVISION OF RADIOLOGY Provider, [facility] - 12/20/2023 * * *Final Report* * * DATE OF EXAM: Dec 20 2023 10:21AM [facility] 0530 - CT ABD/PEL W [...] chest CT performed will be reported separately. Court Magistrate (topogram) images: No additional findings. IMPRESSION IMPRESSION: [...] any questions regarding this interpretation, please call [phone]. If you are unable to reach us at the number above, please feel free to contact [facility] eRadiology at [phone]. [facility] CT Abdomen and Pelvis W cont rast IVOrdered By: Ccf Provider on 12-20-2023 [facility] CT Chest W contrast Ivelisse IMPRESSION: 1. [...] any questions regarding this interpretation, please call [phone]. If you are unable to reach us at the number above, please feel free to contact [facility] eRadiology at [phone]. DIVISION OF RADIOLOGY * * *Final Report* * * DATE OF EXAM: Dec 20 2023 10:21AM [facility] 0539 - CT CHEST W [...] was performed and will be reported separately. Court Magistrate (topogram) images: No additional findings. DIVISION OF RADIOLOGY Provider, [facility] - 12/20/2023 * * *Final Report* * * DATE OF EXAM: Dec 20 2023 10:21AM [facility] 0539 - CT CHEST W [...] was performed and will be reported separately. Court Magistrate (topogram) images: No additional findings. IMPRESSION IMPRESSION: [...] any questions regarding this interpretation, please call [phone]. If you are unable to reach us at the number above, please feel free to contact [facility] eRadiology at [phone]. [facility] Comprehensive metabolic 2000 panelOrdered By: Toshia Stokes on 12-20-2023 Albumin [Mass/Vol] 4.0 g/dL 3.9 - 4.9 g/dL [facility] ALP [Catalytic activity/Vol] 102 U/L 38 - 113 U/L [facility] ALT [Catalytic activity/Vol] 11 U/L 10 - 54 U/L [facility] Anion gap [Moles/Vol] 9 mmol/L 9 - 18 mmol/L [facility] AST [Catalytic activity/Vol] 12 U/L Low 14 - 40 U/L [facility] Bilirubin [Mass/Vol] 0.7 mg/dL 0.2 - 1 .3 mg/dL [facility] Calcium [Mass/Vol] 9.6 mg/dL 8.5 - 10. 2 mg/dL [facility] Chloride [Moles/Vol] 107 mmol/L High 97 - 10 5 mmol/L [facility] CO2 [Moles/Vol] 27 mmol/L 22 - 30 mmol/L [facility] Creatinine [Mass/Vol] 1.07 mg/dL 0.73 - 1.22 mg/dL [facility] GFR/1.73 sq M.predicted among non-blacks MDRD (S/P/Bld) [Vol rate/Area] 74 mL/min/{1.73_m2} - PINF [facility] Comment on above: Estimated Glomerular Filtration Rate [...] [Mass/Vol] 87 mg/dL 74 - 99 mg/dL [facility] Comment on above: The [place] Diab[employer] s Association (ADA) provides guidance for [...] Standards of Medical Care in Diabetes 2016, [place] Diabetes Association. Diabetes Care. 2016.39(Suppl 1). Interpretation and review of laboratory results Abnormal [facility] Potassium [Moles/Vol] 4.4 mmol/L 3.7 - 5.1 mmol/L [facility] Protein [Mass/Vol] 6.5 g/dL 6.3 - 8.0 g/dL [facility] Sodium [Moles/Vol] 143 mmol/L 136 - 144 mmol/L [facility] Urea nitrogen [Mass/Vol] 19 mg/dL 9 - 24 mg/dL [facility] No Panel Informationon 12-19 Radiology Study observation (narrative) [facility] MR Pelvis WO contraston 11-21 [facility] MR lumbar spine wo conon MR lumbar spine wo con [facility] [place] [address] MRI Report Signed Patient: Mervat Grayson MR#: [id number] : 1950 Acct:[id number] Age/Sex: 72 / M ADM Date: 08/14/23 Loc: [facility] Room: Type: [facility] Attending Dr: Valencia ONEAL Copies to: JM [...] Houser Jr., D.OShirley08/14/2023 2:30 PM Dictation Location: [place] [address] Transcribed By: [facility] 08/14/23 1430 Dictated By: Hang Houser Jr, DO 08/14/23 1426 Signed By: 08/14/23 1430 [facility] MR lumbar spine wo con [facility] [employer] Other MR lumbar spine wo con [facility] Main [place] [employer] Other MR lumbar spine wo con [address] [facility] [employer] Other [place] [address] [employer] Other MR lumbar spine wo con MRI Report [employer] Other MR lumbar spine wo con Signed [employer] Other MR lumbar spine wo con Patient: Mervat Grayson MR#: [id number] [employer] Other MR lumbar spine wo con 4313 [employer] Other MR lumbar spine wo con : 1950 Acct:[id number] [employer] Other MR lumbar spine wo con Age/Sex: 72 / M ADM Date: 08/14/23 [employer] Other MR lumbar spine wo con [facility] Other MR lumbar spine wo con Attending Dr: Valencia Webster [employer] Other MR lumbar spine wo con Copies to: Valencia Webster, MOVIE STAR-C [employer] Other MR lumbar spine wo con Ordering Provider: LISA GodoyC [employer] Other MR lumbar spine wo con Date of Service: 08/14/23 [employer] Other MR lumbar spine wo con MR/MR lumbar spine wo con: Polyneuropathy [employer] Other MR lumbar spine wo con MRI lumbar spine without IV contrast. [employer] Other MR lumbar spine wo con Reason for exam: Back pain. History of colorectal cancer.. No known injury. [employer] Other MR lumbar spine wo con COMPARISON: Lumbar spine series 05/17/2023. Ex [employer] Other MR lumbar spine wo con TECHNIQUE: Multisequence, multiplanar imaging of the lumbar spine was obtained without the use of IV [employer] Other MR lumbar spine wo con contrast. [employer] Other MR lumbar spine wo con FINDINGS: Vertebral body heights appear maintained. No bone marrow edema is seen. Presumed [employer] Other MR lumbar spine wo con postradiation bone marrow changes are seen involving the L5 vertebral body and visualized sacrum. [employer] Other MR lumbar spine wo con Spinal cord terminates in normal position without abnormal cord signal. No paraspinal mass. [employer] Other MR lumbar spine wo con Visualized retroperitoneum demonstrates presumed bilateral parapelvic cysts. [employer] Other MR lumbar spine wo con L1-L2: Diffuse broad-based disc bulge is present with central protrusion type disc herniation noted. [employer] Other MR lumbar spine wo con There is ligamentum flavum hypertrophy and facet joint degenerative changes. Findings are causing [employer] Other MR lumbar spine wo con moderate canal and severe left-sided neural foraminal stenosis. Mild right-sided neural foraminal [employer] Other MR lumbar spine wo con stenosis. [employer] Other MR lumbar spine wo con L2-L3: 5 mm retrolisthesis is noted. Broad-based disc bulge is present with ligamentum flavum [employer] Other MR lumbar spine wo con hypertrophy and facet joint degenerative changes. Findings are causing moderate canal and severe [employer] Other MR lumbar spine wo con bilateral neural foraminal narrowing. [employer] Other MR lumbar spine wo con L3-L4: 3 mm retrolisthesis. Diffuse broad-based disc bulge is present with ligamentum flavum [employer] Other MR lumbar spine wo con hypertrophy and facet joint degenerative changes causing mild canal and severe bilateral neural [employer] Other MR lumbar spine wo con foraminal stenosis. [employer] Other MR lumbar spine wo con L4-L5: 6 mm of anterolisthesis. Diffuse broad-based disc bulge is present with ligamentum flavum [employer] Other MR lumbar spine wo con hypertrophy and facet joint degenerative changes causing severe canal and right-sided neural [employer] Other MR lumbar spine wo con foraminal stenosis. Moderate left-sided neural foraminal stenosis. [employer] Other MR lumbar spine wo con L5-S1: No posterior disc pathology is noted. Facet joint degenerative changes. No significant canal [employer] Other MR lumbar spine wo con stenosis. Severe bilateral foraminal stenosis. [employer] Other MR lumbar spine wo con MR/MR lumbar spine wo con [employer] Other MR lumbar spine wo con Impression: Multilevel degenerative disc disease as described above. [employer] Other MR lumbar spine wo con Impression dictated by: Hang Houser Jr., D.OShirley08/14/2023 2:30 PM [facility] Other MR lumbar spine wo con Dictation Location: [place] [address] [employer] Other MR lumbar spine wo con Transcribed By: PWS 08/14/23 [employer] Other MR lumbar spine wo con Dictated By: Hang Houser Jr, DO 08/14/23 1426 [employer] Other MR lumbar spine wo con Signed By: [facility] Other MR lumbar spine wo con 08/14/23 [facility] [employer] Other SIGMOIDOSCOPYon 07-09-2023 [facility] CT Abdomen W contrast Ivelisse 0 06-22-2023 [...] any questions regarding this interpretation, please call [phone]. If you are unable to reach us at the number above, please feel free to contact [facility] eRadiology at [phone]. DIVISION OF RADIOLOGY * * *Final Report* * * DATE OF EXAM: Jun 20 2023 10:46AM [facility] 0533 - CT ABDOMEN W IVCON [...] performed concurrently and will be dictated separately. Court Magistrate (topogram) images: No additional findings. DIVISION OF RADIOLOGY Provider, [facility] - 06/22/2023 * * *Final Report* * * DATE OF EXAM: Jun 20 2023 10:46AM [facility] 0533 - CT ABDOMEN W IVCON [...] performed concurrently and will be dictated separately. Court Magistrate (topogram) images: No additional findings. IMPRESSION IMPRESSION: [...] any questions regarding this interpretation, please call [phone]. If you are unable to reach us at the number above, please feel free to contact [facility] eRadiology at [phone]. [facility] CT Chest W contrast Ivelisse IMPRESSION: 1. [...] any questions regarding this interpretation, please call [phone]. If you are unable to reach us at the number above, please feel free [facility] [phone][facility] DIVISION OF RADIOLOGY * * *Final Report* * * DATE OF EXAM: Jun 20 2023 10:46AM [facility] 0539 - CT CHEST W [...] performed concurrently and will be dictated separately. Court Magistrate (topogram) images: No additional findings. DIVISION OF RADIOLOGY Provider, [facility] - 06/22/2023 * * *Final Report* * * DATE OF EXAM: Jun 20 2023 10:46AM [facility] 0539 - CT CHEST W [...] performed concurrently and will be dictated separately. Court Magistrate (topogram) images: No additional findings. IMPRESSION IMPRESSION: [...] any questions regarding this interpretation, please call [phone]. If you are unable to reach us at the number above, please feel free to contact [facility] eRadiology at [phone]. [facility] CT Chest W contrast IVOrdere d By: Ccf Provider on 06-22-2023 [facility] CBC W Auto Differential pane l (Bld)on 06-20-2023 Basophils (Bld) [#/Vol] 0.05 10*3/uL <0.11 k/uL [facility] Basophils/100 WBC (Bld) 0.8 % [facility] Differential cell count method Nom (Bld) Auto [facility] Eosinophils (Bld) [#/Vol] 0.20 10*3/uL <0.46 k/uL [facility] Eosinophils/100 WBC (Bld) 3.2 % [facility] Erythrocyte distribution width (RBC) [Ratio] 16.4 % High 11.5 - 15.0 % [facility] Hematocrit (Bld) [Volume fraction] 37.4 % Low 39.0 - 51.0 % [facility] Hemoglobin (Bld) [Mass/Vol] 12.1 g/dL Low 13.0 - 17.0 g/dL [facility] Immature granulocytes (Bld) [#/Vol] 0.04 10*3/uL <0.10 k/uL [facility] Immature granulocytes/100 WBC (Bld) 0.6 % [facility] Lymphocytes (Bld) [#/Vol] 0.82 10*3/uL Low 1.00 - 4.00 k/uL [facility] Lymphocytes/100 WBC (Bld) 13.1 % [facility] MCH (RBC) [Entitic mass] 31.7 pg 26.0 - 34.0 pg [facility] MCHC (RBC) [Mass/Vol] 32.4 g/dL 30.5 - 36.0 g/dL [facility] MCV (RBC) [Entitic vol] 97.9 fL 80.0 - 100.0 fL [facility] Monocytes (Bld) [#/Vol] 0.83 10*3/uL <0.87 k/uL [facility] Monocytes/100 WBC (Bld) 13.3 % [facility] Neutrophils (Bld) [#/Vol] 4.32 10*3/uL 1.45 - 7.50 k/uL [facility] Neutrophils/100 WBC (Bld) 69.0 % [facility] Nucleated RBC (Bld) [#/Vol] <0.01 k/uL [facility] Nucleated RBC/100 WBC (Bld) [Ratio] 0.0 /100 WBC [facility] Platelet mean volume (Bld) [Entitic vol] 9.7 fL 9.0 - 12.7 fL [facility] Platelets (Bld) [#/Vol] 196 10*3/uL 150 - 400 k/uL [facility] RBC (Bld) [#/Vol] 3.82 10*6/uL Low 4.20 - 6.0 0 m/uL [facility] WBC (Bld) [#/Vol] 6.26 10*3/uL 3.70 - 11.00 k/uL [facility] Comprehensive metabolic 2000 panelon 06-20-2023 Albumin [Mass/Vol] 3.9 g/dL 3.9 - 4.9 g/dL [facility] ALP [Catalytic activity/Vol] 97 U/L 38 - 113 U/L [facility] ALT [Catalytic activity/Vol] 9 U/L Low 10 - 54 U/L [facility] Anion gap [Moles/Vol] 10 mmol/L 9 - 18 mmol/L [facility] AST [Catalytic activity/Vol] 11 U/L Low 14 - 40 U/L [facility] Bilirubin [Mass/Vol] 0.4 mg/dL 0.2 - 1 .3 mg/dL [facility] Calcium [Mass/Vol] 9.3 mg/dL 8.5 - 10. 2 mg/dL [facility] Chloride [Moles/Vol] 109 mmol/L High 97 - 10 5 mmol/L [facility] CO2 [Moles/Vol] 26 mmol/L 22 - 30 mmol/L [facility] Creatinine [Mass/Vol] 1.14 mg/dL 0.73 - 1.22 mg/dL [facility] Estimated Glomerular Filtration Rate 69 mL/min/1.73m >=60 mL/min/1.73 m [facility] Glucose [Mass/Vol] 90 mg/dL 74 - 99 mg/dL [facility] Potassium [Moles/Vol] 3.9 mmol/L 3.7 - 5.1 mmol/L [facility] Protein [Mass/Vol] 6.1 g/dL Low 6.3 - 8.0 g/dL [facility] Sodium [Moles/Vol] 145 mmol/L High 136 - 144 mmol/L [facility] Urea nitrogen [Mass/Vol] 21 mg/dL 9 - 24 mg/dL [facility] MAGNESIUM BLDon 06-20-2023 Magnesium [Mass/Vol] 2.0 mg/dL 1.7 - 2 .3 mg/dL [facility] No Panel Informationon 06-20 Radiology Study observation (narrative) [facility] CEA BLDon 05-29-2023 Carcinoembryonic Ag [Mass/Vol] 2.2 ng/mL <=2.9 ng/mL [facility] CBC W Auto Differential pane l (Bld)on 05-28-2023 Basophils (Bld) [#/Vol] 0.04 10*3/uL <0.11 k/uL [facility] Basophils/100 WBC (Bld) 0.4 % [facility] Differential cell count method Nom (Bld) Auto [facility] Eosinophils (Bld) [#/Vol] 0.16 10*3/uL <0.46 k/uL [facility] Eosinophils/100 WBC (Bld) 1.7 % [facility] Erythrocyte distribution width (RBC) [Ratio] 17.1 % High 11.5 - 15.0 % [facility] Hematocrit (Bld) [Volume fraction] 37.7 % Low 39.0 - 51.0 % [facility] Hemoglobin (Bld) [Mass/Vol] 12.2 g/dL Low 13.0 - 17.0 g/dL [facility] Immature granulocytes (Bld) [#/Vol] 0.05 10*3/uL <0.10 k/uL [facility] Immature granulocytes/100 WBC (Bld) 0.5 % [facility] Lymphocytes (Bld) [#/Vol] 0.65 10*3/uL Low 1.00 - 4.00 k/uL [facility] Lymphocytes/100 WBC (Bld) 6.8 % [facility] MCH (RBC) [Entitic mass] 32.3 pg 26.0 - 34.0 pg [facility] MCHC (RBC) [Mass/Vol] 32.4 g/dL 30.5 - 36.0 g/dL [facility] MCV (RBC) [Entitic vol] 99.7 fL 80.0 - 100.0 fL [facility] Monocytes (Bld) [#/Vol] 0.71 10*3/uL <0.87 k/uL [facility] Monocytes/100 WBC (Bld) 7.4 % [facility] Neutrophils (Bld) [#/Vol] 7.93 10*3/uL High 1.45 - 7.50 k/uL [facility] Neutrophils/100 WBC (Bld) 83.2 % [facility] Nucleated RBC (Bld) [#/Vol] <0.01 k/uL [facility] Nucleated RBC/100 WBC (Bld) [Ratio] 0.0 /100 WBC [facility] Platelet mean volume (Bld) [Entitic vol] 10.1 fL 9.0 - 12.7 fL [facility] Platelets (Bld) [#/Vol] 206 10*3/uL 150 - 400 k/uL [facility] RBC (Bld) [#/Vol] 3.78 10*6/uL Low 4.20 - 6.0 0 m/uL [facility] WBC (Bld) [#/Vol] 9.54 10*3/uL 3.70 - 11.00 k/uL [facility] Comprehensive metabolic 2000 panelon 05-28-2023 Albumin [Mass/Vol] 3.8 g/dL Low 3.9 - 4.9 g/dL [facility] ALP [Catalytic activity/Vol] 93 U/L 38 - 113 U/L [facility] ALT [Catalytic activity/Vol] 9 U/L Low 10 - 54 U/L [facility] Anion gap [Moles/Vol] 9 mmol/L 9 - 18 mmol/L [facility] AST [Catalytic activity/Vol] 15 U/L 14 - 40 U/L [facility] Bilirubin [Mass/Vol] 0.4 mg/dL 0.2 - 1 .3 mg/dL [facility] Calcium [Mass/Vol] 9.3 mg/dL 8.5 - 10. 2 mg/dL [facility] Chloride [Moles/Vol] 105 mmol/L 97 - 10 5 mmol/L [facility] CO2 [Moles/Vol] 27 mmol/L 22 - 30 mmol/L [facility] Creatinine [Mass/Vol] 1.12 mg/dL 0.73 - 1.22 mg/dL [facility] Estimated Glomerular Filtration Rate 71 mL/min/1.73m >=60 mL/min/1.73 m [facility] Glucose [Mass/Vol] 86 mg/dL 74 - 99 mg/dL [facility] Potassium [Moles/Vol] 3.8 mmol/L 3.7 - 5.1 mmol/L [facility] Protein [Mass/Vol] 6.1 g/dL Low 6.3 - 8.0 g/dL [facility] Sodium [Moles/Vol] 141 mmol/L 136 - 144 mmol/L [facility] Urea nitrogen [Mass/Vol] 19 mg/dL 9 - 24 mg/dL [facility] MR cervical spine wo/w conon 05-23-2023 MR cervical spine wo/w con [facility] [place] [address] MRI Report Signed Patient: Mervat Grayson MR#: [id number] : 1950 Acct:[id number] Age/Sex: 72 / M ADM Date: 05/22/23 Loc: MR Room: Type: [facility] Attending Dr: Valencia ONEAL Copies to: [...] Brett Crowley M.D.05/23/2023 12:40 PM Dictation Location: [place] [address] Transcribed By: SOLIS 05/23/23 1240 Dictated By: Brett Crowley II, MD 05/23/23 1228 Signed By: 05/23/23 1240 Normal [facility] MR cervical spine wo/w con [facility] [employer] Other MR cervical spine wo/w con [facility] [employer] Other MR cervical spine wo/w con [address] [facility] [employer] Other MR cervical spine wo/w con [employer] [address] [employer] Other MR cervical spine wo/w con MRI Report [facility] Other MR cervical spine wo/w con Signed [facility] Other MR cervical spine wo/w con Patient: Mervat Grayson MR#: [id number] [employer] Other MR cervical spine wo/w con 4313 [employer] Other MR cervical spine wo/w con : 1950 Acct:[id number] [employer] Other MR cervical spine wo/w con Age/Sex: 72 / M ADM Date: 05/22/23 [employer] Other MR cervical spine wo/w con Loc: MR Room: Type: [facility] [employer] Other MR cervical spine wo/w con Attending Dr: Valencia ONEAL [facility] Other MR cervical spine wo/w con Copies to: JM Godoy [facility] Other MR cervical spine wo/w con Ordering Provider: JM Godoy [facility] Other MR cervical spine wo/w con Date of Service: 05/22/23 [facility] Other MR cervical spine wo/w con MR/MR cervical spine wo/w con: M54.12 [facility] Other MR cervical spine wo/w con MR cervical spine wo/w con 05/22/2023 9:21 PM [facility] Other MR cervical spine wo/w con SIGNS AND SYMPTOMS: Neck pain, stiffness, history of colorectal cancer [facility] Other MR cervical spine wo/w con PROTOCOL: Multiplanar multisequence MR images of the cervical spine were obtained with and without [facility] Other MR cervical spine wo/w con IV contrast [facility] Other MR cervical spine wo/w con CONTRAST: 20 mL of intravenous ProHance [facility] Other MR cervical spine wo/w con COMPARISON: 03/18/2023 and 10/20/2015 [facility] Other MR cervical spine wo/w con FINDINGS: The bones of the cervical spine are in anatomic alignment. There is preservation of [employer] Other MR cervical spine wo/w con vertebral body heights. There is intervertebral fusion at C4-C5 with anterior fusion from C5 through [employer] Other MR cervical spine wo/w con C7. This is unchanged. The marrow signal is within normal limits. The cord is normal in signal. No [facility] Other MR cervical spine wo/w con epidural or paraspinous fluid collection is appreciated. The visualized paraspinous soft tissues are [employer] Other MR cervical spine wo/w con within normal limits. The prevertebral soft tissues are within normal limits. [employer] Other MR cervical spine wo/w con At C2-C3: There is uncovertebral joint spurring and uncovertebral joint spurring. There is mild to [employer] Other MR cervical spine wo/w con moderate left neural foraminal narrowing without spinal canal narrowing. [employer] Other MR cervical spine wo/w con At C3-C4: There is a broad-based disc bulge with facet and negative joint degenerative change [employer] Other MR cervical spine wo/w con contributing to moderate bilateral neural foraminal narrowing with mild spinal canal narrowing. [employer] Other MR cervical spine wo/w con These changes are slightly worse when compared to the previous MRI. [employer] Other MR cervical spine wo/w con At C4-C5: There is intervertebral fusion with uncovertebral joint spurring and facet hypertrophy. [employer] Other MR cervical spine wo/w con There is moderate severe left and mild right neural foraminal narrowing. This mild spinal canal [employer] Other MR cervical spine wo/w con narrowing. There has been improvement in spinal canal stenosis since the previous MRI. [employer] Other MR cervical spine wo/w con At C5-C6: There is uncovertebral joint spurring and facet hypertrophy with moderate bilateral neural [employer] Other MR cervical spine wo/w con foraminal narrowing. No significant spinal canal narrowing. [employer] Other MR cervical spine wo/w con At C6-C7: There is a broad-based disc bulge with facet and uncovertebral joint degenerative change [employer] Other MR cervical spine wo/w con contributing to severe bilateral neural foraminal narrowing with mild spinal canal narrowing. [employer] Other MR cervical spine wo/w con At C7-T1: Facet hypertrophy is present bilaterally contributing to moderate bilateral neural [employer] Other MR cervical spine wo/w con foraminal narrowing. There is no significant spinal canal narrowing. [employer] Other MR cervical spine wo/w con MR/MR cervical spine wo/w con [employer] Other MR cervical spine wo/w con IMPRESSION: [employer] Other MR cervical spine wo/w con No cord compression or cord signal abnormality. [employer] Other MR cervical spine wo/w con No abnormal postcontrast enhancement. [employer] Other MR cervical spine wo/w con Significant multilevel disc, facet, and uncovertebral joint degenerative change contributing to [employer] Other MR cervical spine wo/w con varying degrees of spinal canal and neural foraminal narrowing, as detailed above. [employer] Other MR cervical spine wo/w con Impression dictated by: Brett Crowley M.D.05/23/2023 12:40 PM [employer] Other MR cervical spine wo/w con Dictation Location: [place] [address] [employer] Other MR cervical spine wo/w con Transcribed By: SOLIS 05/23/23 1240 [employer] Other MR cervical spine wo/w con Dictated By: Brett Crowley II, MD 05/23/23 1228 [employer] Other MR cervical spine wo/w con Signed By: [employer] Other MR cervical spine wo/w con 05/23/23 1240 [employer] Other Creatinine (Bld) [Mass/Vol]O rdered By: Valencia Webster on 05-22-2023 Creatinine [Mass/Vol] 1.3 mg/dL 0.6-1.3 [facility] Comment on above: ER/ESD physician is notified/shown all ISTAT results.Critical values may be confirmed by laboratory testing ifdeemed necessary by ER attending doctor. Basic metabolic 2000 panelon 05-14-2023 Anion gap [Moles/Vol] 7 mmol/L Low 9 - 18 mmol/L [facility] Calcium [Mass/Vol] 9.3 mg/dL 8.5 - 10. 2 mg/dL [facility] Chloride [Moles/Vol] 105 mmol/L 97 - 10 5 mmol/L [facility] CO2 [Moles/Vol] 28 mmol/L 22 - 30 mmol/L [facility] Creatinine [Mass/Vol] 1.08 mg/dL 0.73 - 1.22 mg/dL [facility] Estimated Glomerular Filtration Rate 74 mL/min/1.73m >=60 mL/min/1.73 m [facility] Glucose [Mass/Vol] 106 mg/dL High 74 - 99 mg/dL [facility] Potassium [Moles/Vol] 3.8 mmol/L 3.7 - 5.1 mmol/L [facility] Sodium [Moles/Vol] 140 mmol/L 136 - 144 mmol/L [facility] Urea nitrogen [Mass/Vol] 22 mg/dL 9 - 24 mg/dL [facility] MRI RECTUM WO/W IVCONon 06-2 [...] Apr 19 2023 7:18AM EST [id number] Normal [facility] CBC W Auto Differential pane l (Bld)on 04-16-2023 Basophils (Bld) [#/Vol] 0.07 10*3/uL <0.11 k/uL [facility] Basophils/100 WBC (Bld) 0.8 % [facility] Differential cell count method Nom (Bld) Auto [facility] Eosinophils (Bld) [#/Vol] 0.14 10*3/uL <0.46 k/uL [facility] Eosinophils/100 WBC (Bld) 1.7 % [facility] Erythrocyte distribution width (RBC) [Ratio] 17.3 % High 11.5 - 15.0 % [facility] Hematocrit (Bld) [Volume fraction] 35.2 % Low 39.0 - 51.0 % [facility] Hemoglobin (Bld) [Mass/Vol] 11.3 g/dL Low 13.0 - 17.0 g/dL [facility] Immature granulocytes (Bld) [#/Vol] 0.13 10*3/uL High <0.10 k/uL [facility] Immature granulocytes/100 WBC (Bld) 1.6 % [facility] Lymphocytes (Bld) [#/Vol] 1.09 10*3/uL 1.00 - 4.00 k/uL [facility] Lymphocytes/100 WBC (Bld) 13.1 % [facility] MCH (RBC) [Entitic mass] 31.9 pg 26.0 - 34.0 pg [facility] MCHC (RBC) [Mass/Vol] 32.1 g/dL 30.5 - 36.0 g/dL [facility] MCV (RBC) [Entitic vol] 99.4 fL 80.0 - 100.0 fL [facility] Monocytes (Bld) [#/Vol] 0.75 10*3/uL <0.87 k/uL [facility] Monocytes/100 WBC (Bld) 9.0 % [facility] Neutrophils (Bld) [#/Vol] 6.14 10*3/uL 1.45 - 7.50 k/uL [facility] Neutrophils/100 WBC (Bld) 73.8 % [facility] Nucleated RBC (Bld) [#/Vol] <0.01 k/uL [facility] Nucleated RBC/100 WBC (Bld) [Ratio] 0.0 /100 WBC [facility] Platelet mean volume (Bld) [Entitic vol] 10.0 fL 9.0 - 12.7 fL [facility] Platelets (Bld) [#/Vol] 227 10*3/uL 150 - 400 k/uL [facility] RBC (Bld) [#/Vol] 3.54 10*6/uL Low 4.20 - 6.0 0 m/uL [facility] WBC (Bld) [#/Vol] 8.32 10*3/uL 3.70 - 11.00 k/uL [facility] Comprehensive metabolic 2000 panelon 04-16-2023 Albumin [Mass/Vol] 3.8 g/dL Low 3.9 - 4.9 g/dL [facility] ALP [Catalytic activity/Vol] 88 U/L 38 - 113 U/L [facility] ALT [Catalytic activity/Vol] 11 U/L 10 - 54 U/L [facility] Anion gap [Moles/Vol] 11 mmol/L 9 - 18 mmol/L [facility] AST [Catalytic activity/Vol] 16 U/L 14 - 40 U/L [facility] Bilirubin [Mass/Vol] 0.4 mg/dL 0.2 - 1 .3 mg/dL [facility] Calcium [Mass/Vol] 9.5 mg/dL 8.5 - 10. 2 mg/dL [facility] Chloride [Moles/Vol] 107 mmol/L High 97 - 10 5 mmol/L [facility] CO2 [Moles/Vol] 25 mmol/L 22 - 30 mmol/L [facility] Creatinine [Mass/Vol] 1.10 mg/dL 0.73 - 1.22 mg/dL [facility] Estimated Glomerular Filtration Rate 72 mL/min/1.73m >=60 mL/min/1.73 m [facility] Glucose [Mass/Vol] 126 mg/dL High 74 - 99 mg/dL [facility] Potassium [Moles/Vol] 3.2 mmol/L Low 3.7 - 5.1 mmol/L [facility] Protein [Mass/Vol] 6.2 g/dL Low 6.3 - 8.0 g/dL [facility] Sodium [Moles/Vol] 143 mmol/L 136 - 144 mmol/L [facility] Urea nitrogen [Mass/Vol] 22 mg/dL 9 - 24 mg/dL [facility] XR cerv spine AP/LAT/FLX/EXT on 04-11-2023 XR cerv spine AP/LAT/FLX/EXT [facility] [place] [address] [place], [place] [id number] XRay Report Signed Patient: Mervat Grayson MR#: [id number] : 1950 Acct:[id number] Age/Sex: 72 / M ADM Date: 04/11/23 Loc: XD Room: Type: REG CLI Attending Dr: Valencia Webster NP-C Copies to: JM Godoy Ordering Provider: JM Godoy Date of Service: 04/11/23 XR/XR hips BI 4V adult: M54.12 ([id number]) XR/XR cerv spine AP/LAT/FLX/EXT: M54.12 CLINICAL HISTORY: [...] Viola Santiago M.D.04/11/2023 11:02 AM Dictation Location: [facility] Transcribed By: [facility] 04/11/23 1102 Dictated By: Viola Santiago MD 04/11/23 1054 Signed By: 04/11/23 1102 [facility] SURGICAL PATHOLOGYon 023 Case Report Surgical Pathology Report Case: [id number] Authorizing Provider: Deborah Norman MD Collected: 04/09/2023 01:00 PM Ordering Location: Procedures Received: 04/09/2023 02:35 PM Pathologist: Aries Lynch MD Specimen: ANAL CANAL BIOPSY, polyp [facility] FINAL DIAGNOSIS A. Anal canal, polyp , biopsy: - Squamous mucosa polyp. [facility] Gross Description A. ANAL CANAL BIOPSY Received in formalin is one santos-martínez polypoid segment of tissue measuring 0.3 x 0.3 x 0.2 cm. No stalk is present. The line of resection is noted. The specimen is not sectioned and totally submitted in one cassette. Gross examination performed at [facility], [facility] [place] [address] J 04/09/2023 7:48 PM [facility] Performing Lab Diagnostic interpretation performed at [facility], [address] [place] [address]# [id number] [employer] As[employer]er: Aries Lynch M.D. [facility] COLONOSCOPY DIAGNOSTICon [facility] CBC W Auto Differential pane l (Bld)on 03-19-2023 Basophils (Bld) [#/Vol] 0.03 10*3/uL <0.11 k/uL [facility] Basophils/100 WBC (Bld) 0.4 % [facility] Differential cell count method Nom (Bld) Auto [facility] Eosinophils (Bld) [#/Vol] 0.23 10*3/uL <0.46 k/uL [facility] Eosinophils/100 WBC (Bld) 2.8 % [facility] Erythrocyte distribution width (RBC) [Ratio] 16.1 % High 11.5 - 15.0 % [facility] Hematocrit (Bld) [Volume fraction] 35.0 % Low 39.0 - 51.0 % [facility] Hemoglobin (Bld) [Mass/Vol] 11.6 g/dL Low 13.0 - 17.0 g/dL [facility] Immature granulocytes (Bld) [#/Vol] 0.03 10*3/uL <0.10 k/uL [facility] Immature granulocytes/100 WBC (Bld) 0.4 % [facility] Lymphocytes (Bld) [#/Vol] 0.65 10*3/uL Low 1.00 - 4.00 k/uL [facility] Lymphocytes/100 WBC (Bld) 7.9 % [facility] MCH (RBC) [Entitic mass] 33.5 pg 26.0 - 34.0 pg [facility] MCHC (RBC) [Mass/Vol] 33.1 g/dL 30.5 - 36.0 g/dL [facility] MCV (RBC) [Entitic vol] 101.2 fL High 80.0 - 100.0 fL [facility] Monocytes (Bld) [#/Vol] 1.41 10*3/uL High <0.87 k/uL [facility] Monocytes/100 WBC (Bld) 17.2 % [facility] Neutrophils (Bld) [#/Vol] 5.84 10*3/uL 1.45 - 7.50 k/uL [facility] Neutrophils/100 WBC (Bld) 71.3 % [facility] Nucleated RBC (Bld) [#/Vol] <0.01 k/uL [facility] Nucleated RBC/100 WBC (Bld) [Ratio] 0.0 /100 WBC [facility] Platelet mean volume (Bld) [Entitic vol] 9.4 fL 9.0 - 12.7 fL [facility] Platelets (Bld) [#/Vol] 171 10*3/uL 150 - 400 k/uL [facility] RBC (Bld) [#/Vol] 3.46 10*6/uL Low 4.20 - 6.0 0 m/uL [facility] WBC (Bld) [#/Vol] 8.19 10*3/uL 3.70 - 11.00 k/uL [facility] Comprehensive metabolic 2000 panelon 03-19-2023 Albumin [Mass/Vol] 3.6 g/dL Low 3.9 - 4.9 g/dL [facility] ALP [Catalytic activity/Vol] 98 U/L 38 - 113 U/L [facility] ALT [Catalytic activity/Vol] 10 U/L 10 - 54 U/L [facility] Anion gap [Moles/Vol] 10 mmol/L 9 - 18 mmol/L [facility] AST [Catalytic activity/Vol] 18 U/L 14 - 40 U/L [facility] Bilirubin [Mass/Vol] 0.5 mg/dL 0.2 - 1 .3 mg/dL [facility] Calcium [Mass/Vol] 9.3 mg/dL 8.5 - 10. 2 mg/dL [facility] Chloride [Moles/Vol] 102 mmol/L 97 - 10 5 mmol/L [facility] CO2 [Moles/Vol] 26 mmol/L 22 - 30 mmol/L [facility] Creatinine [Mass/Vol] 1.18 mg/dL 0.73 - 1.22 mg/dL [facility] Estimated Glomerular Filtration Rate 66 mL/min/1.73m >=60 mL/min/1.73 m [facility] Glucose [Mass/Vol] 123 mg/dL High 74 - 99 mg/dL [facility] Potassium [Moles/Vol] 3.6 mmol/L Low 3.7 - 5.1 mmol/L [facility] Protein [Mass/Vol] 6.2 g/dL Low 6.3 - 8.0 g/dL [facility] Sodium [Moles/Vol] 138 mmol/L 136 - 144 mmol/L [facility] Urea nitrogen [Mass/Vol] 20 mg/dL 9 - 24 mg/dL [facility] CBC W Auto Differential pane l (Bld)on 02-19-2023 Basophils (Bld) [#/Vol] 0.03 10*3/uL <0.11 k/uL [facility] Basophils/100 WBC (Bld) 0.5 % [facility] Differential cell count method Nom (Bld) Auto [facility] Eosinophils (Bld) [#/Vol] 0.13 10*3/uL <0.46 k/uL [facility] Eosinophils/100 WBC (Bld) 2.1 % [facility] Erythrocyte distribution width (RBC) [Ratio] 15.8 % High 11.5 - 15.0 % [facility] Hematocrit (Bld) [Volume fraction] 35.5 % Low 39.0 - 51.0 % [facility] Hemoglobin (Bld) [Mass/Vol] 11.8 g/dL Low 13.0 - 17.0 g/dL [facility] Immature granulocytes (Bld) [#/Vol] 0.03 10*3/uL <0.10 k/uL [facility] Immature granulocytes/100 WBC (Bld) 0.5 % [facility] Lymphocytes (Bld) [#/Vol] 0.67 10*3/uL Low 1.00 - 4.00 k/uL [facility] Lymphocytes/100 WBC (Bld) 10.8 % [facility] MCH (RBC) [Entitic mass] 34.0 pg 26.0 - 34.0 pg [facility] MCHC (RBC) [Mass/Vol] 33.2 g/dL 30.5 - 36.0 g/dL [facility] MCV (RBC) [Entitic vol] 102.3 fL High 80.0 - 100.0 fL [facility] Monocytes (Bld) [#/Vol] 0.95 10*3/uL High <0.87 k/uL [facility] Monocytes/100 WBC (Bld) 15.3 % [facility] Neutrophils (Bld) [#/Vol] 4.40 10*3/uL 1.45 - 7.50 k/uL [facility] Neutrophils/100 WBC (Bld) 70.8 % [facility] Nucleated RBC (Bld) [#/Vol] <0.01 k/uL [facility] Nucleated RBC/100 WBC (Bld) [Ratio] 0.0 /100 WBC [facility] Platelet mean volume (Bld) [Entitic vol] 9.6 fL 9.0 - 12.7 fL [facility] Platelets (Bld) [#/Vol] 186 10*3/uL 150 - 400 k/uL [facility] RBC (Bld) [#/Vol] 3.47 10*6/uL Low 4.20 - 6.0 0 m/uL [facility] WBC (Bld) [#/Vol] 6.21 10*3/uL 3.70 - 11.00 k/uL [facility] Comprehensive metabolic 2000 panelon 02-19-2023 Albumin [Mass/Vol] 3.6 g/dL Low 3.9 - 4.9 g/dL [facility] ALP [Catalytic activity/Vol] 118 U/L High 38 - 113 U/L [facility] ALT [Catalytic activity/Vol] 10 U/L 10 - 54 U/L [facility] Anion gap [Moles/Vol] 7 mmol/L Low 9 - 18 mmol/L [facility] AST [Catalytic activity/Vol] 14 U/L 14 - 40 U/L [facility] Bilirubin [Mass/Vol] 0.4 mg/dL 0.2 - 1 .3 mg/dL [facility] Calcium [Mass/Vol] 9.2 mg/dL 8.5 - 10. 2 mg/dL [facility] Chloride [Moles/Vol] 105 mmol/L 97 - 10 5 mmol/L [facility] CO2 [Moles/Vol] 28 mmol/L 22 - 30 mmol/L [facility] Creatinine [Mass/Vol] 1.11 mg/dL 0.73 - 1.22 mg/dL [facility] Estimated Glomerular Filtration Rate 71 mL/min/1.73m >=60 mL/min/1.73 m [facility] Glucose [Mass/Vol] 89 mg/dL 74 - 99 mg/dL [facility] Potassium [Moles/Vol] 3.9 mmol/L 3.7 - 5.1 mmol/L [facility] Protein [Mass/Vol] 6.0 g/dL Low 6.3 - 8.0 g/dL [facility] Sodium [Moles/Vol] 140 mmol/L 136 - 144 mmol/L [facility] Urea nitrogen [Mass/Vol] 14 mg/dL 9 - 24 mg/dL [facility] Basic metabolic 2000 panelon 01-08-2023 Anion gap [Moles/Vol] 11 mmol/L 9 - 18 mmol/L [facility] Calcium [Mass/Vol] 9.3 mg/dL 8.5 - 10. 2 mg/dL [facility] Chloride [Moles/Vol] 106 mmol/L High 97 - 10 5 mmol/L [facility] CO2 [Moles/Vol] 25 mmol/L 22 - 30 mmol/L [facility] Creatinine [Mass/Vol] 1.12 mg/dL 0.73 - 1.22 mg/dL [facility] Estimated Glomerular Filtration Rate 71 mL/min/1.73m >=60 mL/min/1.73 m [facility] Glucose [Mass/Vol] 118 mg/dL High 74 - 99 mg/dL [facility] Potassium [Moles/Vol] 3.9 mmol/L 3.7 - 5.1 mmol/L [facility] Sodium [Moles/Vol] 142 mmol/L 136 - 144 mmol/L [facility] Urea nitrogen [Mass/Vol] 18 mg/dL 9 - 24 mg/dL [facility] CBC W Auto Differential pane l (Bld)on 01-08-2023 Basophils (Bld) [#/Vol] 0.06 10*3/uL <0.11 k/uL [facility] Basophils/100 WBC (Bld) 0.8 % [facility] Differential cell count method Nom (Bld) Auto [facility] Eosinophils (Bld) [#/Vol] 0.33 10*3/uL <0.46 k/uL [facility] Eosinophils/100 WBC (Bld) 4.3 % [facility] Erythrocyte distribution width (RBC) [Ratio] 16.3 % High 11.5 - 15.0 % [facility] Hematocrit (Bld) [Volume fraction] 36.0 % Low 39.0 - 51.0 % [facility] Hemoglobin (Bld) [Mass/Vol] 11.9 g/dL Low 13.0 - 17.0 g/dL [facility] Immature granulocytes (Bld) [#/Vol] 0.03 10*3/uL <0.10 k/uL [facility] Immature granulocytes/100 WBC (Bld) 0.4 % [facility] Lymphocytes (Bld) [#/Vol] 0.71 10*3/uL Low 1.00 - 4.00 k/uL [facility] Lymphocytes/100 WBC (Bld) 9.3 % [facility] MCH (RBC) [Entitic mass] 33.4 pg 26.0 - 34.0 pg [facility] MCHC (RBC) [Mass/Vol] 33.1 g/dL 30.5 - 36.0 g/dL [facility] MCV (RBC) [Entitic vol] 101.1 fL High 80.0 - 100.0 fL [facility] Monocytes (Bld) [#/Vol] 0.74 10*3/uL <0.87 k/uL [facility] Monocytes/100 WBC (Bld) 9.7 % [facility] Neutrophils (Bld) [#/Vol] 5.76 10*3/uL 1.45 - 7.50 k/uL [facility] Neutrophils/100 WBC (Bld) 75.5 % [facility] Nucleated RBC (Bld) [#/Vol] <0.01 k/uL [facility] Nucleated RBC/100 WBC (Bld) [Ratio] 0.0 /100 WBC [facility] Platelet mean volume (Bld) [Entitic vol] 10.1 fL 9.0 - 12.7 fL [facility] Platelets (Bld) [#/Vol] 176 10*3/uL 150 - 400 k/uL [facility] RBC (Bld) [#/Vol] 3.56 10*6/uL Low 4.20 - 6.0 0 m/uL [facility] WBC (Bld) [#/Vol] 7.63 10*3/uL 3.70 - 11.00 k/uL [facility] CBC W Auto Differential pane l (Bld)on 12-25-2022 Basophils (Bld) [#/Vol] 0.06 10*3/uL <0.11 k/uL [facility] Basophils/100 WBC (Bld) 0.9 % [facility] Differential cell count method Nom (Bld) Auto [facility] Eosinophils (Bld) [#/Vol] 0.25 10*3/uL <0.46 k/uL [facility] Eosinophils/100 WBC (Bld) 3.6 % [facility] Erythrocyte distribution width (RBC) [Ratio] 17.8 % High 11.5 - 15.0 % [facility] Hematocrit (Bld) [Volume fraction] 39.4 % 39.0 - 51.0 % [facility] Hemoglobin (Bld) [Mass/Vol] 13.2 g/dL 13.0 - 17.0 g/dL [facility] Immature granulocytes (Bld) [#/Vol] 0.05 10*3/uL <0.10 k/uL [facility] Immature granulocytes/100 WBC (Bld) 0.7 % [facility] Lymphocytes (Bld) [#/Vol] 0.83 10*3/uL Low 1.00 - 4.00 k/uL [facility] Lymphocytes/100 WBC (Bld) 11.9 % [facility] MCH (RBC) [Entitic mass] 33.8 pg 26.0 - 34.0 pg [facility] MCHC (RBC) [Mass/Vol] 33.5 g/dL 30.5 - 36.0 g/dL [facility] MCV (RBC) [Entitic vol] 100.8 fL High 80.0 - 100.0 fL [facility] Monocytes (Bld) [#/Vol] 0.74 10*3/uL <0.87 k/uL [facility] Monocytes/100 WBC (Bld) 10.6 % [facility] Neutrophils (Bld) [#/Vol] 5.03 10*3/uL 1.45 - 7.50 k/uL [facility] Neutrophils/100 WBC (Bld) 72.3 % [facility] Nucleated RBC (Bld) [#/Vol] <0.01 k/uL [facility] Nucleated RBC/100 WBC (Bld) [Ratio] 0.0 /100 WBC [facility] Platelet mean volume (Bld) [Entitic vol] 10.0 fL 9.0 - 12.7 fL [facility] Platelets (Bld) [#/Vol] 163 10*3/uL 150 - 400 k/uL [facility] RBC (Bld) [#/Vol] 3.91 10*6/uL Low 4.20 - 6.0 0 m/uL [facility] WBC (Bld) [#/Vol] 6.96 10*3/uL 3.70 - 11.00 k/uL [facility] Comprehensive metabolic 2000 panelon 12-25-2022 Albumin [Mass/Vol] 4.1 g/dL 3.9 - 4.9 g/dL [facility] ALP [Catalytic activity/Vol] 83 U/L 38 - 113 U/L [facility] ALT [Catalytic activity/Vol] 7 U/L Low 10 - 54 U/L [facility] Anion gap [Moles/Vol] 10 mmol/L 9 - 18 mmol/L [facility] AST [Catalytic activity/Vol] 15 U/L 14 - 40 U/L [facility] Bilirubin [Mass/Vol] 0.5 mg/dL 0.2 - 1 .3 mg/dL [facility] Calcium [Mass/Vol] 9.6 mg/dL 8.5 - 10. 2 mg/dL [facility] Chloride [Moles/Vol] 105 mmol/L 97 - 10 5 mmol/L [facility] CO2 [Moles/Vol] 28 mmol/L 22 - 30 mmol/L [facility] Creatinine [Mass/Vol] 1.23 mg/dL High 0.73 - 1.22 mg/dL [facility] Estimated Glomerular Filtration Rate 63 mL/min/1.73m >=60 mL/min/1.73 m [facility] Glucose [Mass/Vol] 86 mg/dL 74 - 99 mg/dL [facility] Potassium [Moles/Vol] 4.0 mmol/L 3.7 - 5.1 mmol/L [facility] Protein [Mass/Vol] 6.2 g/dL Low 6.3 - 8.0 g/dL [facility] Sodium [Moles/Vol] 143 mmol/L 136 - 144 mmol/L [facility] Urea nitrogen [Mass/Vol] 21 mg/dL 9 - 24 mg/dL [facility] PT panel Coag (PPP)on 2022 INR Coag (PPP) [Relative time] 1.0 {INR} 0.9 - 1.3 [facility] PT Coag (PPP) [Time] 10.7 s 9.7 - 1 3.0 sec [facility] CEA BLDon 12-18-2022 Carcinoembryonic Ag [Mass/Vol] 1.7 ng/mL <=2.9 ng/mL [facility] CBC W Auto Differential pane l (Bld)on 12-17-2022 Basophils (Bld) [#/Vol] 0.04 10*3/uL <0.11 k/uL [facility] Basophils/100 WBC (Bld) 0.7 % [facility] Differential cell count method Nom (Bld) Auto [facility] Eosinophils (Bld) [#/Vol] 0.13 10*3/uL <0.46 k/uL [facility] Eosinophils/100 WBC (Bld) 2.2 % [facility] Erythrocyte distribution width (RBC) [Ratio] 18.9 % High 11.5 - 15.0 % [facility] Hematocrit (Bld) [Volume fraction] 38.5 % Low 39.0 - 51.0 % [facility] Hemoglobin (Bld) [Mass/Vol] 12.9 g/dL Low 13.0 - 17.0 g/dL [facility] Immature granulocytes (Bld) [#/Vol] 0.05 10*3/uL <0.10 k/uL [facility] Immature granulocytes/100 WBC (Bld) 0.9 % [facility] Lymphocytes (Bld) [#/Vol] 0.63 10*3/uL Low 1.00 - 4.00 k/uL [facility] Lymphocytes/100 WBC (Bld) 10.9 % [facility] MCH (RBC) [Entitic mass] 34.0 pg 26.0 - 34.0 pg [facility] MCHC (RBC) [Mass/Vol] 33.5 g/dL 30.5 - 36.0 g/dL [facility] MCV (RBC) [Entitic vol] 101.6 fL High 80.0 - 100.0 fL [facility] Monocytes (Bld) [#/Vol] 0.64 10*3/uL <0.87 k/uL [facility] Monocytes/100 WBC (Bld) 11.1 % [facility] Neutrophils (Bld) [#/Vol] 4.30 10*3/uL 1.45 - 7.50 k/uL [facility] Neutrophils/100 WBC (Bld) 74.2 % [facility] Nucleated RBC (Bld) [#/Vol] <0.01 k/uL [facility] Nucleated RBC/100 WBC (Bld) [Ratio] 0.0 /100 WBC [facility] Platelet mean volume (Bld) [Entitic vol] 10.2 fL 9.0 - 12.7 fL [facility] Platelets (Bld) [#/Vol] 200 10*3/uL 150 - 400 k/uL [facility] RBC (Bld) [#/Vol] 3.79 10*6/uL Low 4.20 - 6.0 0 m/uL [facility] WBC (Bld) [#/Vol] 5.79 10*3/uL 3.70 - 11.00 k/uL [facility] Comprehensive metabolic 2000 panelon 12-17-2022 Albumin [Mass/Vol] 4.0 g/dL 3.9 - 4.9 g/dL [facility] ALP [Catalytic activity/Vol] 79 U/L 38 - 113 U/L [facility] ALT [Catalytic activity/Vol] 8 U/L Low 10 - 54 U/L [facility] Anion gap [Moles/Vol] 5 mmol/L Low 9 - 18 mmol/L [facility] AST [Catalytic activity/Vol] 14 U/L 14 - 40 U/L [facility] Bilirubin [Mass/Vol] 0.4 mg/dL 0.2 - 1 .3 mg/dL [facility] Calcium [Mass/Vol] 9.1 mg/dL 8.5 - 10. 2 mg/dL [facility] Chloride [Moles/Vol] 107 mmol/L High 97 - 10 5 mmol/L [facility] CO2 [Moles/Vol] 28 mmol/L 22 - 30 mmol/L [facility] Creatinine [Mass/Vol] 1.22 mg/dL 0.73 - 1.22 mg/dL [facility] Estimated Glomerular Filtration Rate 64 mL/min/1.73m >=60 mL/min/1.73 m [facility] Glucose [Mass/Vol] 84 mg/dL 74 - 99 mg/dL [facility] Potassium [Moles/Vol] 4.0 mmol/L 3.7 - 5.1 mmol/L [facility] Protein [Mass/Vol] 6.2 g/dL Low 6.3 - 8.0 g/dL [facility] Sodium [Moles/Vol] 140 mmol/L 136 - 144 mmol/L [facility] Urea nitrogen [Mass/Vol] 19 mg/dL 9 - 24 mg/dL [facility] CT Abdomen and Pelvis W cont rast Ivelisse 12-10-2022 IMPRESSION: 1. No evidence of metastatic disease [...] any questions regarding this interpretation, please call [phone]. If you are unable to reach us at the number above, please feel free to contact [facility] eRadiology at [phone]. DIVISION OF RADIOLOGY * * *Final Report* * * DATE OF EXAM: Dec 10 2022 1:07PM NR 0530 - CT ABD/PEL W IVCON / [...] chest CT performed will be reported separately. Court Magistrate (topogram) images: No additional findings. DIVISION OF RADIOLOGY Provider, [facility] - 12/10/2022 * * *Final Report* * * DATE OF EXAM: Dec 10 2022 1:07PM [facility] 0530 - CT ABD/PEL W [...] chest CT performed will be reported separately. Court Magistrate (topogram) images: No additional findings. IMPRESSION IMPRESSION: [...] any questions regarding this interpretation, please call [phone]. If you are unable to reach us at the number above, please feel free to contact [facility] eRadiology at [phone]. [facility] CT Abdomen and Pelvis W cont rast IVOrdered By: Ccf Provider on 12-10-2022 [facility] CT Chest W contrast Ivelisse IMPRESSION: 1. [...] any questions regarding this interpretation, please call [phone]. If you are unable to reach us at the number above, please feel free to contact [facility] at [phone]. DIVISION OF RADIOLOGY * * *Final Report* * * DATE OF EXAM: Dec 10 2022 1:07PM [facility] 0539 - CT CHEST W [...] noted are scattered noncalcified pulmonary nodules, with sales representative education courses larger examples detailed as follows on series [...] There are enlarged noncalcified lymph nodes, with sales representative education courses examples detailed as follows on series 3: [...] for findings related to the upper abdomen. Court Magistrate (topogram) images: No additional findings. DIVISION OF RADIOLOGY Provider, [facility] - 12/10/2022 * * *Final Report* * * DATE OF EXAM: Dec 10 2022 1:07PM [facility] 0539 - CT CHEST W [...] noted are scattered noncalcified pulmonary nodules, with sales representative education courses larger examples detailed as follows on series [...] There are enlarged noncalcified lymph nodes, with sales representative education courses examples detailed as follows on series 3: [...] for findings related to the upper abdomen. Court Magistrate (topogram) images: No additional findings. IMPRESSION IMPRESSION: [...] any questions regarding this interpretation, please call [phone]. If you are unable to reach us at the number above, please feel free to contact [facility] eRadiology at [phone]. [facility] No Panel Informationon 12-10 Radiology Study observation (narrative) [facility] CHEMISTRYOrdered By: SYSTEM SYSTEM on 11-16-2022 Albumin [...] 50 mL/min/1.73 m2 Low >=59mL/min/ 1.73 m2 [facility] Chem S Globulin (S) [Mass/Vol] 2.3 g/dL [...] 10 - 20 [facility] Remisol HEMATOLOGYOrdered By: Sonam Aponte on 11-16-2022 [...] 8.3 fL Normal 6.4 - 10.8 fL [facility] HemeAutoSS Platelets (Bld) [#/Vol] 178.0 E9/L Normal 150.0 - 500.0 E9/L [facility] HemeAutoSS RBC (Bld) [#/Vol] 4.0 E12/L Low 4.3 - 5.9 E12/L [facility] HemeAutoSS Sed Rate Automated 8 mm/h Normal 0 - 19 mm/hr [facility] HemeAutoSS WBC corrected for nucl RBC Auto (Bld) [#/Vol] 6.4 E9/L Normal 4.0 - 11.0 E9/L [facility] HemeAutoSS CBC W Auto Differential pane l (Bld)on 11-08-2022 Basophils (Bld) [#/Vol] 0.04 10*3/uL <0.11 k/uL [facility] Basophils/100 WBC (Bld) 0.7 % [facility] Differential cell count method Nom (Bld) Auto [facility] Eosinophils (Bld) [#/Vol] 0.18 10*3/uL <0.46 k/uL [facility] Eosinophils/100 WBC (Bld) 3.1 % [facility] Erythrocyte distribution width (RBC) [Ratio] 17.3 % High 11.5 - 15.0 % [facility] Hematocrit (Bld) [Volume fraction] 36.9 % Low 39.0 - 51.0 % [facility] Hemoglobin (Bld) [Mass/Vol] 12.3 g/dL Low 13.0 - 17.0 g/dL [facility] Immature granulocytes (Bld) [#/Vol] 0.04 10*3/uL <0.10 k/uL [facility] Immature granulocytes/100 WBC (Bld) 0.7 % [facility] Lymphocytes (Bld) [#/Vol] 0.34 10*3/uL Low 1.00 - 4.00 k/uL [facility] Lymphocytes/100 WBC (Bld) 5.9 % [facility] MCH (RBC) [Entitic mass] 32.5 pg 26.0 - 34.0 pg [facility] MCHC (RBC) [Mass/Vol] 33.3 g/dL 30.5 - 36.0 g/dL [facility] MCV (RBC) [Entitic vol] 97.4 fL 80.0 - 100.0 fL [facility] Monocytes (Bld) [#/Vol] 0.55 10*3/uL <0.87 k/uL [facility] Monocytes/100 WBC (Bld) 9.5 % [facility] Neutrophils (Bld) [#/Vol] 4.62 10*3/uL 1.45 - 7.50 k/uL [facility] Neutrophils/100 WBC (Bld) 80.1 % [facility] Nucleated RBC (Bld) [#/Vol] <0.01 k/uL [facility] Nucleated RBC/100 WBC (Bld) [Ratio] 0.0 /100 WBC [facility] Platelet mean volume (Bld) [Entitic vol] 9.3 fL 9.0 - 12.7 fL [facility] Platelets (Bld) [#/Vol] 157 10*3/uL 150 - 400 k/uL [facility] RBC (Bld) [#/Vol] 3.79 10*6/uL Low 4.20 - 6.0 0 m/uL [facility] WBC (Bld) [#/Vol] 5.77 10*3/uL 3.70 - 11.00 k/uL [facility] CBC W Auto Differential pane l (Bld)on 10-11-2022 Basophils (Bld) [#/Vol] <0.11 k/uL [facility] Basophils/100 WBC (Bld) 0.1 % [facility] Differential cell count method Nom (Bld) Auto [facility] Eosinophils (Bld) [#/Vol] <0.46 k/uL [facility] Eosinophils/100 WBC (Bld) 0.0 % [facility] Erythrocyte distribution width (RBC) [Ratio] 15.5 % High 11.5 - 15.0 % [facility] Hematocrit (Bld) [Volume fraction] 42.6 % 39.0 - 51.0 % [facility] Hemoglobin (Bld) [Mass/Vol] 14.0 g/dL 13.0 - 17.0 g/dL [facility] Immature granulocytes (Bld) [#/Vol] 0.12 10*3/uL High <0.10 k/uL [facility] Immature granulocytes/100 WBC (Bld) 0.6 % [facility] Lymphocytes (Bld) [#/Vol] 0.82 10*3/uL Low 1.00 - 4.00 k/uL [facility] Lymphocytes/100 WBC (Bld) 4.0 % [facility] MCH (RBC) [Entitic mass] 31.0 pg 26.0 - 34.0 pg [facility] MCHC (RBC) [Mass/Vol] 32.9 g/dL 30.5 - 36.0 g/dL [facility] MCV (RBC) [Entitic vol] 94.5 fL 80.0 - 100.0 fL [facility] Monocytes (Bld) [#/Vol] 1.01 10*3/uL High <0.87 k/uL [facility] Monocytes/100 WBC (Bld) 4.9 % [facility] Neutrophils (Bld) [#/Vol] 18.55 10*3/uL High 1.45 - 7.50 k/uL [facility] Neutrophils/100 WBC (Bld) 90.4 % [facility] Nucleated RBC (Bld) [#/Vol] <0.01 k/uL [facility] Nucleated RBC/100 WBC (Bld) [Ratio] 0.0 /100 WBC [facility] Platelet mean volume (Bld) [Entitic vol] 10.9 fL 9.0 - 12.7 fL [facility] Platelets (Bld) [#/Vol] 207 10*3/uL 150 - 400 k/uL [facility] RBC (Bld) [#/Vol] 4.51 10*6/uL 4.20 - 6.0 0 m/uL [facility] WBC (Bld) [#/Vol] 20.52 10*3/uL High 3.70 - 11.00 k/uL [facility] Comprehensive metabolic 2000 panelon 10-11-2022 Albumin [Mass/Vol] 3.9 g/dL 3.9 - 4.9 g/dL [facility] ALP [Catalytic activity/Vol] 80 U/L 38 - 113 U/L [facility] ALT [Catalytic activity/Vol] 10 U/L 10 - 54 U/L [facility] Anion gap [Moles/Vol] 11 mmol/L 9 - 18 mmol/L [facility] AST [Catalytic activity/Vol] 11 U/L Low 14 - 40 U/L [facility] Bilirubin [Mass/Vol] 1.0 mg/dL 0.2 - 1 .3 mg/dL [facility] Calcium [Mass/Vol] 9.5 mg/dL 8.5 - 10. 2 mg/dL [facility] Chloride [Moles/Vol] 104 mmol/L 97 - 10 5 mmol/L [facility] CO2 [Moles/Vol] 26 mmol/L 22 - 30 mmol/L [facility] Creatinine [Mass/Vol] 1.50 mg/dL High 0.73 - 1.22 mg/dL [facility] Estimated Glomerular Filtration Rate 50 mL/min/1.73m Low >=60 mL/min/1.73 m [facility] Glucose [Mass/Vol] 136 mg/dL High 74 - 99 mg/dL [facility] Potassium [Moles/Vol] 4.3 mmol/L 3.7 - 5.1 mmol/L [facility] Protein [Mass/Vol] 6.1 g/dL Low 6.3 - 8.0 g/dL [facility] Sodium [Moles/Vol] 141 mmol/L 136 - 144 mmol/L [facility] Urea nitrogen [Mass/Vol] 30 mg/dL High 9 - 24 mg/dL [facility] MR abdomen wo/w conon 2021 MR abdomen wo/w con [facility] [place] [address] MRI Report Signed Patient: Mervat Grayson MR#: [id number] : 1950 Acct:[id number] Age/Sex: 71 / M ADM Date: 10/01/22 Loc: MR Room: Type: [facility] Attending Dr: Minerva Anderson MD Copies [...] CHOLELITHIASIS. Impression dictated by: Hang Houser Jr., DTamara10/02/2022 10:33 AM Dictation Location: [place] [address] Transcribed By: [facility] 10/02/22 1033 Dictated By: Hang Houser Jr, DO 10/02/22 0923 Signed By: 10/02/22 1033 [facility] Creatinine (Bld) [Mass/Vol]O rdered By: Minerva Anderson on 10-01-2022 Creatinine [Mass/Vol] 1.2 mg/dL 0.6-1.3 [facility] Comment on above: ER/ESD physician is notified/shown all ISTAT results.Critical values may be confirmed by laboratory testing ifdeemed necessary by ER attending doctor. ISTAT XRay CREon 10-01-2022 Creatinine [Mass/Vol] 1.2 mg/dL Normal 0.6-1.3 [facility] Comment on above: Result Comment: ER/E SD physician is notified/shown all ISTAT results. Critical values may be confirmed by laboratory testing if deemed necessary by ER attending doctor. Performed By: #### I SCRE #### [facility] [address] [place] [address] Point of Care testing , ISTAT GFR ( > 60 [facility] Comment on above: Result Comment: GFR estimated reference range: According to KDOQI guidelines, <60 ml/min/1.73m2 is sufficient to diagnose a patient with chronic kidney disease. PERFORMED BY: [place] [address] PATHOLOGIST [employer] REPAIRER YONG HANKINS M.D. Performed By: #### I SCRE #### [facility] [address] [place] [address] Point of Care testing , ISTAT GFR (Non- Am 60 Normal [facility] Comment on above: Performed By: #### I SCRE #### [facility] [address] [place] [id number] [facility] Point of Care testing , No Panel InformationOrdered By: Minerva Anderson on 10-01-2022 POC Estimated GFR > 60 [facility] Comment on above: GFR estimated refere nce range: According to KDOQI guidelines, <60 ml/min/1.73m2 is sufficient to diagnose a patient with chronic kidney disease. POC Estimated GFR Non- Amer 60 [facility] GLUCOSE, BLOOD (POC)on 09-25 Glucose [Mass/Vol] 91 mg/dL 74 - 99 mg/dL [facility] Comment on above: Location:[facility], [address] [place] [address] , [place], [place], [facility] The Accu-Chek Inform II glucose meter has [...] blood gas instrument) in the above situations. [facility] PET+CT Guidance for localiza tion of tumor [...] any questions regarding this interpretation, please call [phone]. If you are unable to reach us at the number above, please feel free to contact [facility] at [phone]. DIVISION OF RADIOLOGY * * *Final Report* [...] MUSCULOSKELETAL: There are no hypermetabolic osseous lesions. Court Magistrate (topogram) images: No additional findings. Status post ACDF of C4-C7. DIVISION OF RADIOLOGY Provider, [facility] - 09/25/2022 * * *Final [...] MUSCULOSKELETAL: There are no hypermetabolic osseous lesions. Court Magistrate (topogram) images: No additional findings. Status post [...] be any q (more content not included)... [facility] Radiology Study observation (narrative) [facility] PET+CT Guidance for localiza tion of tumor of Skull base to mid-thigh-- W [id number] IVOrdered By: Ccf Provider on 09-25-2022 [facility] PATH CONSULTon 09-20-2022 LAB AP CASE REPORT Normal [facility] Comment on above: Result Comment: PATH OLOGY CONSULT Case: [id number] Authorizing Provider: Thalia Troy MD Collected: 09/20/2022 1150 Ordering Location: [facility] Lab Received: 09/20/2022 1153 Pathologist: Vanessa Maldonado MD Specimen: Anus, Biopsy Performed By: #### P ATH CONSULT ####[facility] (BEAKER)[address] [place] [address] LAB AP CLINICAL INFORMATION Anal mass Normal [facility] Comment on above: Performed By: #### P ATH CONSULT ####[facility] (AKER)[address] [place] [address] LAB AP DIAGNOSIS COMMENT Normal [facility] Comment on above: Result Comment: Prov ided [...] needed. Performed By: #### P ATH CONSULT ####[facility] ([facility] [place] [address] LAB AP GROSS DESCRIPTION A. Anus. [facility] Comment on above: Result Comment: Rece ived from [place] [address], [place] [address] are eight (8) previously stained glass slides accessioned [id number]. The slides are accompanied by a copy of the contributing pathologists??? report. Performed By: #### P ATH CONSULT ####[facility] ([facility])[address] [place] [address] LAB AP REPORT FINAL DIAGNOSIS NARRATIVE [facility] Comment on above: Result Comment: Mass at anal verge, biopsy ([id number], are 8 slides received from [facility]): Adenocarcinoma of colonic origin. Performed By: #### P ATH CONSULT ####[facility] (BEAKER)[address] [place] [address] CBC W Auto Differential pane l (Bld)on 09-17-2022 Basophils (Bld) [#/Vol] 0.06 10*3/uL <0.11 k/uL [facility] Basophils/100 WBC (Bld) 0.6 % [facility] Differential cell count method Nom (Bld) Auto [facility] Eosinophils (Bld) [#/Vol] 0.26 10*3/uL <0.46 k/uL [facility] Eosinophils/100 WBC (Bld) 2.7 % [facility] Erythrocyte distribution width (RBC) [Ratio] 15.2 % High 11.5 - 15.0 % [facility] Hematocrit (Bld) [Volume fraction] 43.9 % 39.0 - 51.0 % [facility] Hemoglobin (Bld) [Mass/Vol] 14.4 g/dL 13.0 - 17.0 g/dL [facility] Immature granulocytes (Bld) [#/Vol] 0.03 10*3/uL <0.10 k/uL [facility] Immature granulocytes/100 WBC (Bld) 0.3 % [facility] Lymphocytes (Bld) [#/Vol] 2.17 10*3/uL 1.00 - 4.00 k/uL [facility] Lymphocytes/100 WBC (Bld) 22.8 % [facility] MCH (RBC) [Entitic mass] 31.0 pg 26.0 - 34.0 pg [facility] MCHC (RBC) [Mass/Vol] 32.8 g/dL 30.5 - 36.0 g/dL [facility] MCV (RBC) [Entitic vol] 94.4 fL 80.0 - 100.0 fL [facility] Monocytes (Bld) [#/Vol] 0.67 10*3/uL <0.87 k/uL [facility] Monocytes/100 WBC (Bld) 7.0 % [facility] Neutrophils (Bld) [#/Vol] 6.33 10*3/uL 1.45 - 7.50 k/uL [facility] Neutrophils/100 WBC (Bld) 66.6 % [facility] Nucleated RBC (Bld) [#/Vol] <0.01 k/uL [facility] Nucleated RBC/100 WBC (Bld) [Ratio] 0.0 /100 WBC [facility] Platelet mean volume (Bld) [Entitic vol] 10.4 fL 9.0 - 12.7 fL [facility] Platelets (Bld) [#/Vol] 232 10*3/uL 150 - 400 k/uL [facility] RBC (Bld) [#/Vol] 4.65 10*6/uL 4.20 - 6.0 0 m/uL [facility] WBC (Bld) [#/Vol] 9.52 10*3/uL 3.70 - 11.00 k/uL [facility] Comprehensive metabolic 2000 panelon 09-17-2022 Albumin [Mass/Vol] 4.2 g/dL 3.9 - 4.9 g/dL [facility] ALP [Catalytic activity/Vol] 89 U/L 38 - 113 U/L [facility] ALT [Catalytic activity/Vol] 11 U/L 10 - 54 U/L [facility] Anion gap [Moles/Vol] 8 mmol/L Low 9 - 18 mmol/L [facility] AST [Catalytic activity/Vol] 16 U/L 14 - 40 U/L [facility] Bilirubin [Mass/Vol] 0.5 mg/dL 0.2 - 1 .3 mg/dL [facility] Calcium [Mass/Vol] 9.3 mg/dL 8.5 - 10. 2 mg/dL [facility] Chloride [Moles/Vol] 103 mmol/L 97 - 10 5 mmol/L [facility] CO2 [Moles/Vol] 29 mmol/L 22 - 30 mmol/L [facility] Creatinine [Mass/Vol] 1.22 mg/dL 0.73 - 1.22 mg/dL [facility] Estimated Glomerular Filtration Rate 64 mL/min/1.73m >=60 mL/min/1.73 m [facility] Glucose [Mass/Vol] 84 mg/dL 74 - 99 mg/dL [facility] Potassium [Moles/Vol] 4.1 mmol/L 3.7 - 5.1 mmol/L [facility] Protein [Mass/Vol] 6.5 g/dL 6.3 - 8.0 g/dL [facility] Sodium [Moles/Vol] 140 mmol/L 136 - 144 mmol/L [facility] Urea nitrogen [Mass/Vol] 23 mg/dL 9 - 24 mg/dL [facility] CT ABDOMEN PELVIS W IV [...] gallbladder dilatation. Electronically signed: Jerrica Barragan. Normal [facility] CT CHEST W IV CONTRASTon CT CHEST [...] granulomatous disease. Electronically signed: Jerrica Barragan. Normal [facility] MR PELVIS WO CONTRASTon 08-22 MR PELVIS [...] findings section. Electronically signed: MERVAT JACINTO. Normal [facility] Comment on above: Order Comment: RECTA L MRI NEEDED CEAon 09-05-2022 CARCINOEMBRYONIC AG (NG/ML) IN SER/PLAS 14.4 ng/mL High 0-3 [facility] Comment on above: Performed By: #### L [id number] ####[facility] (BEAKER)[address] [place] [address] CREATININE, SERUMon 09-05-20 Creatinine [Mass/Vol] 1.15 mg/dL Normal 0.70-1.30 [facility] Comment on above: Performed By: #### L [id number] #### [facility] (BEAKER) [address] [place] [address] GLOMERULAR FILTRATION RATE ML/MIN/1.73 SQ M.PREDICTED 64.6 mL/min/1.73m*2 Normal >60.0 [facility] Comment on above: Result Comment: The [facility]???s estimated glomerular filtration rate (eGFR) will no [...] individuals. Performed By: #### L [id number] #### [facility] (BEAKER) [address] [place] [address] Office Visiton 09-05-2022 Follow-up visit [id number] Mervat Grayson 1950 M Date Provider Department Center 09/05/2022 THALIA WONG [facility] SURG Second Fl Family History Problem Relation Age of Onset Pancreatic cancer Mother Breast cancer Mother Other Father Liver cancer Sister Thyroid cancer Brother Family Status - Relation Status Age at Mother Father Sister Brother Alive Level of Service:38508 DE OFFICE/OUTPATIENT ESTABLISHED MOD MDM 30-39 MIN Reason for Visit and Comments: Follow-up [577549] - Adenocarcinoma of colon (Reveiw biopsy results) [facility] 36on 08-29-[address] TROY SCHEDULE IN OFFICE ON 09/05/22. CALLED PT AND SCHEDULED WITH DR. TROY PER PROVIDER REQUEST. Normal [facility] 36 Pt update he states metamusil is helping with constipation and pain is still between 2-5. Pt is scheduled for next Saturday. Normal [facility] Orders Onlyon 08-29-2022 Orders Only [id number] Mervat Grayson 1950 M Date Provider Department Center 08/29/2022 BERNARDO WHITING [facility] SURG Second Fl No family history on file [facility] Consulton 08-22-2022 Consult [id number] Mervat Grayson 1950 M Date Provider Department Center 08/22/2022 THALIA WONG [facility] SURG Second Fl No family history on file Level of Service:06937 DE OFFICE/OUTPATIENT NEW MODERATE MDM 45-59 MINUTES Reason for Visit and Comments: Consult [484] - rectal mass Normal [facility] Laboratory - Chemistry and C hemistry - [...] ratio] 16 mg/mg Normal 10 - 20 [facility] Remisol Laboratory - Hematology and Cell countsOrdered By: Bre Ventura on 08-06-2022 Erythrocyte distribution width (RBC) [Ratio] 15.0 % High 10.9 - 14.2 % [facility] HemeAutoSS Hematocrit (Bld) [Volume fraction] 42.0 % Normal 37.7 - 49.0 % [facility] Hemoglobin (Bld) [Mass/Vol] 13.9 g/dL Normal 13.5 - 17.5 gm/dL [facility] HemeAutoSS MCH (RBC) [Entitic mass] 31.4 pg Normal 27.0 - 34.0 pg [facility] HemeAutoSS MCHC (RBC) [Mass/Vol] 33.2 g/dL Normal 31.4 - 36.0 gm/dL [facility] HemeAutoSS MCV (RBC) [Entitic vol] 94.7 fL Normal 80.0 - 100.0 fL [facility] HemeAutoSS Platelet mean volume (Bld) [Entitic vol] 9.9 fL Normal 6.4 - 10.8 fL [facility] HemeAutoSS Platelets (Bld) [#/Vol] 169.0 E9/L Normal 150.0 - 500.0 E9/L [facility]SS RBC (Bld) [#/Vol] 4.4 E12/L Normal 4.3 - 5.9 E12/L [facility] HemeAutoSS WBC corrected for nucl RBC Auto (Bld) [#/Vol] 8.6 E9/L Normal 4.0 - 11.0 E9/L [facility] HemeAutoSS No Panel InformationOrdered By: Bre Ventura on 08-06-2022 Sed Rate Automated 9 mm/h Normal 0 - 19 mm/hr [facility] HemeAutoSS CHEMISTRYOrdered By: SYSTEM SYSTEM on 05-31-2022 [...] 52 mL/min/1.73 m2 Low >=59mL/min/ 1.73 m2 [facility] Chem S GFR/1.73 sq M.predicted among non-blacks MDRD (S/P/Bld) [Vol rate/Area] 43 mL/min/1.73 m2 Low >=59mL/min/ 1.73 m2 [facility] Chem S Glucose [Mass/Vol] 86 mg/dL Normal 55 - 199 mg/dL [facility] Remisol Potassium [Moles/Vol] 4.1 mmol/L Normal 3.5 - 5.3 mmol/L [facility] Sodium [Moles/Vol] 137 mmol/L Normal 135 - 145 mmol/L [facility] Urea nitrogen [Mass/Vol] 30 mg/dL High 5 - 21 mg/dL [facility] Remisol Urea nitrogen/Creatinine [Mass ratio] 19 mg/mg Normal 10 - 20 [facility] HEMATOLOGYOrdered By: SYSTEM SYSTEM on 05-31-2022 Basophils/100 WBC (Bld) 0.7 % Normal 0.0 - 2.0 % [facility] HemeAutoSS Basophils/Leukocytes Auto (Bld) [Pure # fraction] 0.1 E9/L Normal 0.0 - 0.2 E9/L [facility] HemeAutoSS Eosinophils/100 WBC (Bld) 1.5 % Normal 0.0 - 8.0 % [facility] HemeAutoSS Eosinophils/Leukocyte s Auto (Bld) [Pure # [...] Not detected Invalid Interpretation Code Not Detected [facility] SendOutsSS Comment on above: Result Comment: This nucleic acid amplification test was developed and its performance characteristics determined by [employer]. Nucleic acid amplification tests include RT-PCR and [...] detected) result in this assay. Performed at: [address] [id number] PhD Antionette Harris Covid-19 PCR (CVDTB)on SARS-CoV-2 (COVID-19) RNA MIGUE+probe Ql (Unsp spec) Not detected Normal NOT DETECTED The [facility] Comment on above: Result Comment: This test is not yet approved or cleared by the [place] FDA. When there are no FDA-approved or cleared tests available, and other criteria are met, FDA can make tests available under an emergency access mechanism called an Emergency Use Authorization (EUA). The EUA for this test is supported by the Theatrical Performer of Health and Human Service's (HHS's) declaration [...] By: #### C VDTB #### [facility] [address] [place], [place] [id number] Shannan Viola CBC AUTO DIFFon 03-23-2021 BASO # 0.1 103/ul Normal 0.0-0.1 [facility] Comment on above: Performed By: #### C BC #### [facility] [address] [place] [address] Shannan Viola Basophils/100 WBC (Bld) 0.8 % Normal 0.2-2.0 [facility] Comment on above: Performed By: #### C BC #### [facility] [address] [place] [address] Shannan Viola EO # 0.3 103/ul Normal 0.0-0.7 The [facility] Comment on above: Performed By: #### C BC #### [facility] [address] [place] [address] Shannan Viola Eosinophils/100 WBC (Bld) 4.1 % Normal 0.9-7.0 The [facility] Comment on above: Performed By: #### C BC #### [facility] [address] [place] [address] Shannan Viola Erythrocyte distribution width (RBC) [Ratio] 16.0 % Critically high 11.0-15.0 [facility] Comment on above: Performed By: #### C BC #### [facility] [address] [place] [address] Shannan Viola Hematocrit (Bld) [Volume fraction] 40.8 % Critically low 42.0-54.0 [facility] Comment on above: Performed By: #### C BC #### [facility] [address] [place], [place] [id number] Shannan Viola Hemoglobin (Bld) [Mass/Vol] 13.4 g/dL Critically low 14.0-18.0 [facility] Comment on above: Performed By: #### C BC #### [facility] [address] [place] [address] Shannandomenic Rod IG # 0.02 10e3/ul Normal 0.00-0.03 [facility] Comment on above: Performed By: #### C BC #### [facility] [address] [place] [address] Shannandomenic Rod IG % 0.3 % Normal 0.0-0.5 [facility] Comment on above: Performed By: #### C BC #### [facility] [address] [place] [address] Shannandomenic Rod LYMPH # 2.1 103/ul Normal 1.2-3.8 [facility] Comment on above: Performed By: #### C BC #### [facility] [address] [place] [address] Shannan Rod Lymphocytes/100 WBC (Bld) 26.3 % Normal 20.5-60.0 [facility] Comment on above: Performed By: #### C BC #### [facility] [address] [place] [address] Shannan Rod MANUAL DIFF REQ NO Normal [facility] Comment on above: Performed By: #### C BC #### [facility] [address] [place] [address] Shannan Rod MCH (RBC) [Entitic mass] 31.0 pg Normal 25.9-34.0 [facility] Comment on above: Performed By: #### C BC #### [facility] [address] [place] [address] Shannan Rod MCHC (RBC) [Mass/Vol] 32.8 g/dL Normal 29.9-35.2 [facility] Comment on above: Performed By: #### C BC #### [facility] [address] [place] [address] Shannan Rod MCV (RBC) [Entitic vol] 94.4 fL Critically high 80.0-94.0 [facility] Comment on above: Performed By: #### C BC #### [facility] [address] [place] [address] Shannan Viola MONO # 0.7 103/ul Normal 0.3-0.8 [facility] Comment on above: Performed By: #### C BC #### [facility] [address] [place], [place] [address] Shannan Rod Monocytes/100 WBC (Bld) 8.8 % Normal 1.7-12.0 [facility] Comment on above: Performed By: #### C BC #### [facility] [address] [place] [id number] Shannan Rod NEUT # 4.7 103/ul Normal 1.4-6.5 [facility] Comment on above: Performed By: #### C BC #### [facility] [address] [place] [id number] Shannan Rod Neutrophils/100 WBC (Bld) 59.7 % Normal 43.0-75.0 [facility] Comment on above: Performed By: #### C BC #### [facility] [address] [place], [place] [id number] Shannan Rod Platelet mean volume (Bld) [Entitic vol] 10.0 fL Normal 9.5-13.5 [facility] Comment on above: Performed By: #### C BC #### [facility] [address] [place], [place] [id number] Shannandomenic Mejiaen PLT 225 103/ul Normal 150-450 [facility] Comment on above: Performed By: #### C BC #### [facility] [address] [place], [place] [address] Shannan Viola RBC 4.32 106/ul Critically low 4.70-6.10 [facility] Comment on above: Performed By: #### C BC #### [facility] [address] [place], [place] [id number] Shannandomenic Rod WBC 7.8 103/ul Normal 4.0-11.0 [facility] Comment on above: Performed By: #### C BC #### [facility] [address] [place], [place] [phone] Shannan Viola PROF CHEM 8 (BAS METB)on Anion gap [Moles/Vol] 9.5 mmol/L Normal [facility] Comment on above: Performed By: #### B MP #### [facility] [address] [place], [place] [address] Shannan Viola Calcium [Mass/Vol] 8.6 mg/dL Normal 8.4-10.2 [facility] [place] [facility] Comment on above: Performed By: #### B MP #### [facility] [address] [place] [id number] Shannan Viola Chloride [Moles/Vol] 106 mmol/L Normal 98-107 [facility] Comment on above: Performed By: #### B MP #### [facility] [address] [id number] Shannan Viola CO2 [Moles/Vol] 30.5 mmol/L Critically high 22.0-30.0 [facility] Comment on above: Performed By: #### B MP #### [facility] [address] [place] [address] Shannan Viola Creatinine [Mass/Vol] 1.22 mg/dL Normal 0.66-1.25 [facility] Comment on above: Performed By: #### B MP #### [facility] [address] [place] [id number] Shannan Viola EGFR-AF GHANAIAN >60 Normal >=60 [facility] Comment on above: Performed By: #### B MP #### [facility] [address] [place], [place] [address] Shannan Viola EGFR-NON AF GHANAIAN 59 mL/min/1.73m2 Critically low >=60 The [facility] Comment on above: Performed By: #### B MP #### [facility] [address] [id number] Shannan Viola Glucose [Mass/Vol] 84 mg/dL Normal 74-106 The [place] [facility] Comment on above: Performed By: #### B MP #### [facility] [address] [place], [place] [phone] Shannan Viola Potassium [Moles/Vol] 4.0 mmol/L Normal 3.4-5.0 The [facility] Comment on above: Performed By: #### B MP #### [facility] [address] [place], [place] [phone] Shannan Viola Sodium [Moles/Vol] 142 mmol/L Normal 137-145 [facility] Comment on above: Performed By: #### B MP #### [facility] [address] [place], [place] [phone] Shannan Rod Urea nitrogen [Mass/Vol] 15.0 mg/dL Normal 9.0-20.0 [facility] Comment on above: Performed By: #### B MP #### [facility] [address] [place] [address] Shannan Rod Urea nitrogen/Creatinine [Mass ratio] 12.3 mg/mg Normal [facility] Comment on above: Performed By: #### B MP #### [facility] [address] [place] [address] Shannan Rod PROTIMEon 03-23-2021 INR Coag (PPP) [Relative time] 0.99 {INR} Normal [facility] Comment on above: Performed By: #### P T, PTT #### [facility] [address] [place] [address] Shannan Rod INR GUIDELINES SEE BELOW Normal [facility] Comment on above: Result Comment: YASMANY RED INR: 2.0 - 3.0 CONDITIONS NOT LISTED BELOW 2.5 - 3.5 FOR PROSTHETIC HEART VALVE REPLACEMENT 2.5 - 3.5 RECURRENT THROMBOSIS Performed By: #### P T, PTT #### [facility] [address] [place] [address] Shannan Viola PT Coag (PPP) [Time] 10.8 s Normal 9.0-11.6 [facility] Comment on above: Performed By: #### P T, PTT #### [facility] [address] [place], [place] [phone] Shannan Rod PTTon 03-23-2021 aPTT Coag (Bld) [Time] 28.1 s Normal 22.3-36.2 [facility] Comment on above: Performed By: #### P T, PTT #### [facility] [address] [place], [place] [phone] Shannandomenic Rod XR FOOT BLANCA MIN 3 VIEWSon [...] by: DEBORAH PETIT Date: 2021-02-02 11:19 Normal [facility] Vital Signs Date Time Vital Sign Value Performing Clinician Faci lity 04-12-2025 10:43-0400 Body mass index (BMI) [Ratio] 29.83 kg/m2 Minerva Anderson MD Work Phone: [facility] 04-12-2025 10:43-0400 Body temperature 97.7 [degF] Minerva Anderson MD Work Phone: [facility] 04-12-2025 10:43-0400 Body weight 105.4 kg Mnierva Anderson MD Work Phone: [facility] 04-12-2025 10:43-0400 Diastolic blood pressure 82 mm[Hg] Minerva Anderson MD Work Phone: [facility] 04-12-2025 10:43-0400 Heart rate 69 /min Minerva Anderson MD Work Phone: [facility] 04-12-2025 10:43-0400 Respiratory rate 16 /min Minerva Anderson MD Work Phone: [facility] 04-12-2025 10:43-0400 SaO2% (BldA) [Mass fraction] 98 % Minerva Anderson MD Work Phone: [facility] 04-12-2025 10:43-0400 Systolic blood pressure 129 mm[Hg] Minerva Anderson MD Work Phone: [facility] 03-31-2025 14:54-0400 Body height 188 cm Deborah Norman MD Work Phone: [facility] 03-31-2025 14:54-0400 Body mass index (BMI) [Ratio] 28.63 kg/m2 Deborah Norman MD Work Phone: [facility] 03-31-2025 14:54-0400 Body weight 101.15 kg Deborah Norman MD Work Phone: [facility] 03-31-2025 14:54-0400 Diastolic blood pressure 87 mm[Hg] Deboarh Norman MD Work Phone: [facility] 03-31-2025 14:54-0400 Heart rate 80 /min Deborah Norman MD Work Phone: [facility] 03-31-2025 14:54-0400 Systolic blood pressure 135 mm[Hg] Deborah Norman MD Work Phone: [facility] 03-18-2025 13:00-0400 Body height 187.96 cm [facility] 03-18-2025 13:00-0400 Body mass index (BMI) [Ratio] 29.1 kg/m2 [facility] 03-18-2025 13:00-0400 Body weight 102.96 kg [facility] 03-18-2025 13:00-0400 Diastolic blood pressure 93 mm[Hg] [facility] 03-18-2025 13:00-0400 Heart rate 64 /min [facility] 03-18-2025 13:00-0400 Systolic blood pressure 144 mm[Hg] [facility] 03-10-2025 07:57-0400 Blood Pressure Location Pato Peña [facility] 03-10-2025 07:57-0400 Diastolic blood pressure 76 mm[Hg] Pato Peña [facility] 03-10-2025 07:57-0400 Heart rate 68 /min Pato Peña [facility] 03-10-2025 07:57-0400 Respiratory rate 18 /min Pato Peña [facility] 03-10-2025 07:57-0400 SaO2% (BldA) [Mass fraction] 96 % Pato Peña [facility] 03-10-2025 07:57-0400 Systolic blood pressure 126 mm[Hg] Pato Peña [facility] 01-11-2025 09:28-0400 Body mass index (BMI) [Ratio] 28.76 kg/m2 Minerva Anderson MD Work Phone: [facility] 01-11-2025 09:28-0400 Body temperature 97.59 [degF] Minerva Anderson MD Work Phone: [facility] 01-11-2025 09:28-0400 Body weight 101.6 kg Minerva Anderson MD Work Phone: [facility] 01-11-2025 09:28-0400 Diastolic blood pressure 83 mm[Hg] Minerva Anderson MD Work Phone: [facility] 01-11-2025 09:28-0400 Heart rate 67 /min Minerva Anderson MD Work Phone: [facility] 01-11-2025 09:28-0400 Respiratory rate 18 /min Minerva Anderson MD Work Phone: [facility] 01-11-2025 09:28-0400 SaO2% (BldA) [Mass fraction] 100 % Minerva Anderson MD Work Phone: [facility] 01-11-2025 09:28-0400 Systolic blood pressure 131 mm[Hg] Minerva Anderson MD Work Phone: [facility] 12-28-2024 07:23-0400 Body temperature 97.9 [degF] Celeste Andrews APRN.[employer] Work Phone: [facility] 12-28-2024 07:23-0400 Diastolic blood pressure 84 mm[Hg] Celeste Willner 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.[employer] STORE [employer]GER Work Phone: [facility] 12-28-2024 07:23-0400 Heart rate 75 /min Celeste Andrews 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.[employer] STORE [employer]GER Work Phone: [facility] 12-28-2024 07:23-0400 Systolic blood pressure 181 mm[Hg] Celeste Andrews 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.[employer]ORE [employer]GER Work Phone: [facility] 12-07-2024 08:45-0500 Body mass index (BMI) [Ratio] 28.33 kg/m2 Minerva Anderson MD Work Phone: [facility] 12-07-2024 08:45-0500 Body temperature 97.9 [degF] Minerva Anderson MD Work Phone: [facility] 12-07-2024 08:45-0500 Body weight 100.1 kg Minerva Anderson MD Work Phone: [facility] 12-07-2024 08:45-0500 Diastolic blood pressure 84 mm[Hg] Minerva Anderson MD Work Phone: [facility] 12-07-2024 08:45-0500 Heart rate 75 /min Minerva Anderson MD Work Phone: [facility] 12-07-2024 08:45-0500 Respiratory rate 18 /min Minerva Anderson MD Work Phone: [facility] 12-07-2024 08:45-0500 SaO2% (BldA) [Mass fraction] 97 % Minerva Anderson MD Work Phone: [facility] 12-07-2024 08:45-0500 Systolic blood pressure 148 mm[Hg] Minerva Anderson MD Work Phone: [facility] 11-24-2024 12:20-0500 Diastolic blood pressure 85 mm[Hg] Deborah Norman MD Work Phone: [facility] 11-24-2024 12:20-0500 Heart rate 65 /min Deborah Norman MD Work Phone: [facility] 11-24-2024 12:20-0500 Respiratory rate 18 /min Deborah Norman MD Work Phone: [facility] 11-24-2024 12:20-0500 SaO2% (BldA) [Mass fraction] 93 % Deborah Norman MD Work Phone: [facility] 11-24-2024 12:20-0500 Systolic blood pressure 131 mm[Hg] Deborah Norman MD Work Phone: [facility] 11-24-2024 12:00-0500 Body temperature 97 [degF] Deborah Norman MD Work Phone: [facility] 11-24-2024 11:23-0500 Body height 188 cm Deborah Norman MD Work Phone: [facility] 11-24-2024 11:23-0500 Body mass index (BMI) [Ratio] 28.37 kg/m2 Deborah Norman MD Work Phone: [facility] 11-24-2024 11:23-0500 Body weight 100.25 kg Deborah Norman MD Work Phone: [facility] 11-10-2024 10:11-0500 Body height 188 cm Kari Emily PA-C Work Phone: [facility] 11-10-2024 10:11-0500 Body mass index (BMI) [Ratio] 28.43 kg/m2 Kari Emily PA-C Work Phone: [facility] 11-10-2024 10:11-0500 Body temperature 97.9 [degF] Kari Emily PA-C Work Phone: [facility] 11-10-2024 10:11-0500 Body weight 100.5 kg Kari Emily PA-C Work Phone: [facility] 11-10-2024 10:11-0500 Diastolic blood pressure 72 mm[Hg] Kari Emily PA-C Work Phone: [facility] 11-10-2024 10:11-0500 Heart rate 70 /min Kari Emily PA-C Work Phone: [facility] 11-10-2024 10:11-0500 Respiratory rate 18 /min Kari Casianoer PA-C Work Phone: [facility] 11-10-2024 10:11-0500 SaO2% (BldA) [Mass fraction] 96 % Kari Casianoer PA-C Work Phone: [facility] 11-10-2024 10:11-0500 Systolic blood pressure 120 mm[Hg] Kari Casianoer PA-C Work Phone: [facility] 09-27-2024 18:30-0500 Diastolic blood pressure 104 mm[Hg] Micky Rom [facility] 09-27-2024 18:30-0500 Heart rate 77 /min Micky Rom [facility] 09-27-2024 18:30-0500 Mean blood pressure 124 mm[Hg] Micky Rom [facility] 09-27-2024 18:30-0500 Respiratory rate 16 /min Micky Rom [facility] 09-27-2024 18:30-0500 SaO2% (BldA) [Mass fraction] 97 % Micky Rom [facility] 09-27-2024 18:30-0500 Systolic blood pressure 164 mm[Hg] Micky Rom [facility] 09-27-2024 17:30-0500 Diastolic blood pressure 111 mm[Hg] Micky Rom [facility] 09-27-2024 17:30-0500 Heart rate 64 /min Micky Rom [facility] 09-27-2024 17:30-0500 Mean blood pressure 128 mm[Hg] Micky Rom [facility] 09-27-2024 17:30-0500 Respiratory rate 16 /min Micky Cueto [facility] 09-27-2024 17:30-0500 SaO2% (BldA) [Mass fraction] 96 % Micky Cueto [facility] 09-27-2024 17:30-0500 Systolic blood pressure 163 mm[Hg] Micky Cueto [facility] 09-27-2024 17:00-0500 Diastolic blood pressure 101 mm[Hg] Micky Cueto [facility] 09-27-2024 17:00-0500 Heart rate 70 /min Micky Cueto [facility] 09-27-2024 17:00-0500 Mean blood pressure 118 mm[Hg] Micky Cueto [facility] 09-27-2024 17:00-0500 Respiratory rate 18 /min Micky Cueto [facility] 09-27-2024 17:00-0500 Systolic blood pressure 152 mm[Hg] Micky Cueto [facility] 09-27-2024 11:32-0500 Body temperature 98.42 [degF] Micky Cueto [facility] 09-27-2024 11:32-0500 Heart rate 62 /min Micky Cueto [facility] 09-16-2024 14:15-0500 Body height 188 cm Dayanara Sullivan APRN.[employer]GER Work Phone: [facility] 09-16-2024 14:15-0500 Body mass index (BMI) [Ratio] 28.89 kg/m2 Dayanara Sullivan APRN.CNP Work Phone: [facility] 09-16-2024 14:15-0500 Body temperature 96.8 [degF] Dayanara Sullivan APRN.[employer]GER Work Phone: [facility] 09-16-2024 14:15-0500 Body weight 102.06 kg Dayanara Sullivan APRN.[employer]GER Work Phone: [facility] 09-16-2024 14:15-0500 Diastolic blood pressure 92 mm[Hg] Dayanara Sullivan APRN.[employer]GER Work Phone: [facility] 09-16-2024 14:15-0500 Heart rate 68 /min Dayanara Sullivan APRN.[employer]GER Work Phone: [facility] 09-16-2024 14:15-0500 SaO2% (BldA) [Mass fraction] 98 % Dayanara Sullivan APRN.[employer]GER Work Phone: [facility] 09-16-2024 14:15-0500 Systolic blood pressure 125 mm[Hg] Dayanara Sullivan APRN.[employer]GER Work Phone: [facility] 09-10-2024 08:11-0500 Blood Pressure Location Pato Peña [facility] 09-10-2024 08:11-0500 Diastolic blood pressure 84 mm[Hg] Pato Peña [facility] 09-10-2024 08:11-0500 Heart rate 78 /min Pato Peña [facility] 09-10-2024 08:11-0500 Respiratory rate 16 /min Pato Peña [facility] 09-10-2024 08:11-0500 SaO2% (BldA) [Mass fraction] 98 % Pato Peña [facility] 09-10-2024 08:11-0500 Systolic blood pressure 122 mm[Hg] Pato Peña [facility] 09-08-2024 09:05-0500 Body height 188 cm Minerva Anderson MD Work Phone: [facility] 09-08-2024 09:05-0500 Body mass index (BMI) [Ratio] 29 kg/m2 Minerva Anderson MD Work Phone: [facility] 09-08-2024 09:05-0500 Body temperature 97.39 [degF] Minerva Anderson MD Work Phone: [facility] 09-08-2024 09:05-0500 Body weight 102.5 kg Minerva Anderson MD Work Phone: [facility] 09-08-2024 09:05-0500 Diastolic blood pressure 83 mm[Hg] Minerva Anderson MD Work Phone: [facility] 09-08-2024 09:05-0500 Heart rate 83 /min Minreva Anderson MD Work Phone: [facility] 09-08-2024 09:05-0500 Respiratory rate 18 /min Minerva Anderson MD Work Phone: [facility] 09-08-2024 09:05-0500 SaO2% (BldA) [Mass fraction] 97 % Minerva Anderson MD Work Phone: [facility] 09-08-2024 09:05-0500 Systolic blood pressure 134 mm[Hg] Minerva Anderson MD Work Phone: [facility] 08-13-2024 12:41-0400 Body temperature 97.3 [degF] Celeste Andrews APRN.[employer] Work Phone: [facility] 08-13-2024 12:41-0400 Diastolic blood pressure 76 mm[Hg] Celeste Andrews 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.[employer]GER Work Phone: [facility] 08-13-2024 12:41-0400 Heart rate 91 /min Celeste Andrews 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.[employer]GER Work Phone: [facility] [facility] 08-13-2024 12:41-0400 SaO2% (BldA) [Mass fraction] 95 % Celeste Andrews 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.[employer]GER Work Phone: [facility] 08-13-2024 12:41-0400 Systolic blood pressure 131 mm[Hg] Celeste Willner 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.[employer] STORE BAGGER Work Phone: [facility] 07-22-2024 22:00-0400 Diastolic blood pressure 81 mm[Hg] [facility] 07-22-2024 22:00-0400 Heart rate 81 /min [facility] 07-22-2024 22:00-0400 Mean blood pressure 100 mm[Hg] [facility] 07-22-2024 22:00-0400 SaO2% (BldA) [Mass fraction] 94 % [facility] 07-22-2024 22:00-0400 Systolic blood pressure 138 mm[Hg] [facility] 07-22-2024 21:04-0400 Body temperature 98.06 [degF] [facility] 07-22-2024 21:04-0400 Diastolic blood pressure 103 mm[Hg] [facility] 07-22-2024 21:04-0400 Heart rate 80 /min [facility] 07-22-2024 21:04-0400 Mean blood pressure 110 mm[Hg] [facility] 07-22-2024 21:04-0400 Respiratory rate 18 /min [facility] 07-22-2024 21:04-0400 SaO2% (BldA) [Mass fraction] 93 % [facility] 07-22-2024 21:04-0400 Systolic blood pressure 125 mm[Hg] [facility] 07-22-2024 19:50-0400 Diastolic blood pressure 94 mm[Hg] [facility] 07-22-2024 19:50-0400 Heart rate 85 /min [facility] 07-22-2024 19:50-0400 Mean blood pressure 110 mm[Hg] [facility] 07-22-2024 19:50-0400 Respiratory rate 18 /min [facility] 07-22-2024 19:50-0400 SaO2% (BldA) [Mass fraction] 93 % [facility] 07-22-2024 19:50-0400 Systolic blood pressure 142 mm[Hg] [facility] 07-22-2024 19:27-0400 Respiratory rate 16 /min [facility] 07-22-2024 17:51-0400 Respiratory rate 18 /min [facility] 07-22-2024 17:00-0400 Body temperature 98.42 [degF] [facility] 07-22-2024 17:00-0400 Heart rate 74 /min [facility] 07-21-2024 10:20-0400 Diastolic blood pressure 86 mm[Hg] Deborah Norman MD Work Phone: [facility] 07-21-2024 10:20-0400 Respiratory rate 16 /min Deborah Norman MD Work Phone: [facility] 07-21-2024 10:20-0400 SaO2% (BldA) [Mass fraction] 92 % Deborah Norman MD Work Phone: [facility] 07-21-2024 10:20-0400 Systolic blood pressure 127 mm[Hg] Deborah Norman MD Work Phone: [facility] 07-21-2024 10:00-0400 Body temperature 97 [degF] Deborah Norman MD Work Phone: [facility] 07-21-2024 09:00-0400 Body mass index (BMI) [Ratio] 32.73 kg/m2 Deborah Norman MD Work Phone: [facility] 07-21-2024 09:00-0400 Body weight 112.49 kg Deborah Norman MD Work Phone: [facility] 03-12-2024 09:12-0400 Body height 185.4 cm Minerva Anderson MD Work Phone: [facility] 03-12-2024 09:12-0400 Body mass index (BMI) [Ratio] 32.79 kg/m2 Minerva Anderson MD Work Phone: [facility] 03-12-2024 09:12-0400 Body temperature 97.11 [degF] Minerva Anderson MD Work Phone: [facility] 03-12-2024 09:12-0400 Body weight 112.7 kg Minerva Anderson MD Work Phone: [facility] 03-12-2024 09:12-0400 Diastolic blood pressure 84 mm[Hg] Minerva Anderson MD Work Phone: [facility] 03-12-2024 09:12-0400 Heart rate 81 /min Minerva Anderson MD Work Phone: [facility] 03-12-2024 09:12-0400 Respiratory rate 16 /min Minerva Anderson MD Work Phone: [facility] 03-12-2024 09:12-0400 SaO2% (BldA) [Mass fraction] 98 % Minerva Anderson MD Work Phone: [facility] 03-12-2024 09:12-0400 Systolic blood pressure 124 mm[Hg] Minerva Anderson MD Work Phone: [facility] 02-25-2024 12:00-0400 Diastolic blood pressure 78 mm[Hg] Deborah Norman MD Work Phone: [facility] 02-25-2024 12:00-0400 Heart rate 64 /min Deborah Norman MD Work Phone: [facility] 02-25-2024 12:00-0400 Respiratory rate 21 /min Deborah Norman MD Work Phone: [facility] 02-25-2024 12:00-0400 SaO2% (BldA) [Mass fraction] 94 % Deborah Norman MD Work Phone: [facility] 02-25-2024 12:00-0400 Systolic blood pressure 130 mm[Hg] Deborah Norman MD Work Phone: [facility] 02-25-2024 11:39-0400 Body temperature 97 [degF] Deborah Norman MD Work Phone: [facility] 02-25-2024 10:50-0400 Body height 185.4 cm Deborah Norman MD Work Phone: [facility] 02-25-2024 10:50-0400 Body mass index (BMI) [Ratio] 33.51 kg/m2 Deborah Norman MD Work Phone: [facility] 02-25-2024 10:50-0400 Body weight 115.21 kg Deborah Norman MD Work Phone: [facility] 02-14-2024 09:51-0400 Blood Pressure Location Corey SINGLETON [facility] 02-14-2024 09:51-0400 Diastolic blood pressure 74 mm[Hg] Corey SINGLETON [facility] 02-14-2024 09:51-0400 Heart rate 80 /min Corey SINGLETON [facility] 02-14-2024 09:51-0400 Respiratory rate 16 /min Corey SINGLETON [facility] 02-14-2024 09:51-0400 Systolic blood pressure 122 mm[Hg] Corey SINGLETON [facility] 01-28-2024 07:54-0400 Blood Pressure Location Pato Peña [facility] 01-28-2024 07:54-0400 Diastolic blood pressure 80 mm[Hg] Pato Peña [facility] 01-28-2024 07:54-0400 Heart rate 66 /min Pato Peña [facility] 01-28-2024 07:54-0400 SaO2% (BldA) [Mass fraction] 96 % Pato Peña [facility] 01-28-2024 07:54-0400 Systolic blood pressure 128 mm[Hg] Pato Peña [facility] 10-09-2023 12:56-0500 Diastolic blood pressure 71 mm[Hg] Joanne Webster [facility] 10-09-2023 12:56-0500 Heart rate 76 /min Joanne [employer] [facility] 10-09-2023 12:56-0500 Mean blood pressure 82 mm[Hg] Joanne [employer] [facility] 10-09-2023 12:56-0500 Systolic blood pressure 103 mm[Hg] Joanne [employer] [facility] 07-16-2023 08:20-0400 Body height 187.96 cm [employer] Other [employer] Other 07-16-2023 08:20-0400 Body mass index (BMI) [Ratio] 30.55 kg/m2 [employer] [facility] [employer] Other 07-16-2023 08:20-0400 Body weight 107.96 kg [employer] Other [employer] Other 07-16-2023 08:20-0400 Diastolic blood pressure 90 mm[Hg] [employer] Other [employer] Other 07-16-2023 08:20-0400 Systolic blood pressure 128 mm[Hg] [employer] [facility] [employer] Other 07-09-2023 10:10-0400 Diastolic blood pressure 79 mm[Hg] Deborah Norman MD Work Phone: [facility] 07-09-2023 10:10-0400 Heart rate 57 /min Deborah Norman MD Work Phone: [facility] 07-09-2023 10:10-0400 Respiratory rate 19 /min Deborah Norman MD Work Phone: [facility] 07-09-2023 10:10-0400 SaO2% (BldA) [Mass fraction] 94 % Deborah Norman MD Work Phone: [facility] 07-09-2023 10:10-0400 Systolic blood pressure 109 mm[Hg] Deborah Norman MD Work Phone: [facility] 07-09-2023 09:46-0400 Body temperature 97.2 [degF] Deborah Norman MD Work Phone: [facility] 06-18-2023 14:00-0400 Body height 187.96 cm [employer] [facility] [employer] Other 06-18-2023 14:00-0400 Body mass index (BMI) [Ratio] 30.68 kg/m2 [employer] Other [facility] [employer] Other 06-18-2023 14:00-0400 Body weight 108.41 kg [employer] Other [facility] [employer] Other 05-28-2023 10:06-0400 Body height 187.7 cm Minerva Anderson MD Work Phone: [facility] 05-28-2023 10:06-0400 Body temperature 97.59 [degF] Minerva Anderson MD Work Phone: [facility] 05-28-2023 10:06-0400 Body weight 105.96 kg Minerva Anderson MD Work Phone: [facility] 05-28-2023 10:06-0400 Diastolic blood pressure 86 mm[Hg] Minerva Anderson MD Work Phone: [facility] 05-28-2023 10:06-0400 Heart rate 64 /min Minerva Anderson MD Work Phone: [facility] 05-28-2023 10:06-0400 Respiratory rate 16 /min Minerva Anderson MD Work Phone: [facility] 05-28-2023 10:06-0400 SaO2% (BldA) [Mass fraction] 95 % Minerva Anderson MD Work Phone: [facility] 05-28-2023 10:06-0400 Systolic blood pressure 124 mm[Hg] Minerva Anderson MD Work Phone: [facility] 05-07-2023 13:15-0400 Diastolic blood pressure 68 mm[Hg] Bryon Perezner [facility] 05-07-2023 13:15-0400 Heart rate 42 /min Bryonellen Perezner [facility] 05-07-2023 13:15-0400 Mean blood pressure 82 mm[Hg] Bryon Anthony [facility] 05-07-2023 13:15-0400 Respiratory rate 14 /min Bryon Anthony [facility] 05-07-2023 13:15-0400 Systolic blood pressure 109 mm[Hg] Bryon Anthony [facility] 04-29-2023 08:32-0400 Blood Pressure Location Joanne STANG [facility] 04-29-2023 08:32-0400 Diastolic blood pressure 73 mm[Hg] Joanne STANG [facility] 04-29-2023 08:32-0400 Heart rate 61 /min Joanne STANG [facility] 04-29-2023 08:32-0400 SaO2% (BldA) [Mass fraction] 95 % Joanne STANG [facility] 04-29-2023 08:32-0400 Systolic blood pressure 116 mm[Hg] Joanne SANCHEZ [facility] 04-11-2023 09:30-0400 Body height 187.96 cm [employer] [facility] [employer] Other 04-11-2023 09:30-0400 Body mass index (BMI) [Ratio] 29.78 kg/m2 [employer] [facility] [employer] Other 04-11-2023 09:30-0400 Body weight 105.24 kg [employer] [facility] [employer] Other 04-11-2023 09:30-0400 Diastolic blood pressure 82 mm[Hg] [employer] [facility] [employer] Other 04-11-2023 09:30-0400 Systolic blood pressure 122 mm[Hg] [employer] [facility] [employer] Other 04-09-2023 13:30-0400 Diastolic blood pressure 95 mm[Hg] Deborah Norman MD Work Phone: [facility] 04-09-2023 13:30-0400 Heart rate 78 /min Deborah Norman MD Work Phone: [facility] 04-09-2023 13:30-0400 Respiratory rate 15 /min Deborah Norman MD Work Phone: [facility] 04-09-2023 13:30-0400 SaO2% (BldA) [Mass fraction] 95 % Deborah Norman MD Work Phone: [facility] 04-09-2023 13:30-0400 Systolic blood pressure 138 mm[Hg] Deborah Norman MD Work Phone: [facility] 04-09-2023 13:05-0400 Body temperature 97.3 [degF] Deborah Norman MD Work Phone: [facility] 03-21-2023 10:54-0400 Body temperature 97.81 [degF] Chair Arya Work Phone: [facility] 03-21-2023 10:54-0400 Diastolic blood pressure 74 mm[Hg] Chair Arya Work Phone: [facility] 03-21-2023 10:54-0400 Heart rate 63 /min Chair [place] Work Phone: [facility] 03-21-2023 10:54-0400 Respiratory rate 18 /min Chair Arya Work Phone: [facility] 03-21-2023 10:54-0400 SaO2% (BldA) [Mass fraction] 95 % Chair Arya Work Phone: [facility] 03-21-2023 10:54-0400 Systolic blood pressure 108 mm[Hg] Chair Arya Work Phone: [facility] 03-19-2023 08:39-0400 Body height 187.7 cm Minerva Anderson MD Work Phone: [facility] 03-19-2023 08:39-0400 Body temperature 97.2 [degF] Minerva Anderson MD Work Phone: [facility] 03-19-2023 08:39-0400 Body weight 110.04 kg Minerva Anderson MD Work Phone: [facility] 03-19-2023 08:39-0400 Diastolic blood pressure 70 mm[Hg] Minerva Anderson MD Work Phone: [facility] 03-19-2023 08:39-0400 Heart rate 69 /min Minerva Anderson MD Work Phone: [facility] 03-19-2023 08:39-0400 Respiratory rate 16 /min Minerva Anderson MD Work Phone: [facility] 03-19-2023 08:39-0400 SaO2% (BldA) [Mass fraction] 96 % Minerva Anderson MD Work Phone: [facility] 03-19-2023 08:39-0400 Systolic blood pressure 105 mm[Hg] Minerva Anderson MD Work Phone: [facility] 03-18-2023 10:40-0400 Body temperature 97.88 [degF] [facility] 03-18-2023 10:40-0400 Diastolic blood pressure 91 mm[Hg] [facility] 03-18-2023 10:40-0400 Heart rate 69 /min [facility] 03-18-2023 10:40-0400 Respiratory rate 18 /min [facility] 03-18-2023 10:40-0400 SaO2% (BldA) [Mass fraction] 96 % [facility] 03-18-2023 10:40-0400 Systolic blood pressure 142 mm[Hg] [facility] 03-13-2023 10:24-0400 Body temperature 96.69 [degF] JOSE Key MD Work Phone: [facility] 03-13-2023 10:24-0400 Body weight 108.41 kg JOSE Key MD Work Phone: [facility] 03-13-2023 10:24-0400 Diastolic blood pressure 70 mm[Hg] JOSE Key MD Work Phone: [facility] 03-13-2023 10:24-0400 Heart rate 60 /min JOSE Key MD Work Phone: [facility] 03-13-2023 10:24-0400 Respiratory rate 18 /min JOSE Key MD Work Phone: [facility] 03-13-2023 10:24-0400 SaO2% (BldA) [Mass fraction] 98 % JOSE Key MD Work Phone: [facility] 03-13-2023 10:24-0400 Systolic blood pressure 106 mm[Hg] JOSE Key MD Work Phone: [facility] 02-21-2023 11:33-0400 Body temperature 97.5 [degF] Chair Arya Work Phone: [facility] 02-21-2023 11:33-0400 Diastolic blood pressure 75 mm[Hg] Chair Arya Work Phone: [facility] 02-21-2023 11:33-0400 Heart rate 57 /min Chair [place] Work Phone: [facility] 02-21-2023 11:33-0400 Respiratory rate 18 /min Chair [place] Work Phone: [facility] 02-21-2023 11:33-0400 SaO2% (BldA) [Mass fraction] 97 % Chair [place] Work Phone: [facility] 02-21-2023 11:33-0400 Systolic blood pressure 112 mm[Hg] Chair [place] Work Phone: [facility] 02-19-2023 09:21-0400 Body height 187.7 cm Minerva Anderson MD Work Phone: [facility] 02-19-2023 09:21-0400 Body temperature 97.3 [degF] Minerva Anderson MD Work Phone: [facility] 02-19-2023 09:21-0400 Body weight 111.4 kg Minerva Anderson MD Work Phone: [facility] 02-19-2023 09:21-0400 Diastolic blood pressure 88 mm[Hg] Minerva Anderson MD Work Phone: [facility] 02-19-2023 09:21-0400 Heart rate 61 /min Minerva Anderson MD Work Phone: [facility] 02-19-2023 09:21-0400 Respiratory rate 18 /min Minerva Anderson MD Work Phone: [facility] 02-19-2023 09:21-0400 SaO2% (BldA) [Mass fraction] 96 % Minerva Anderson MD Work Phone: [facility] 02-19-2023 09:21-0400 Systolic blood pressure 107 mm[Hg] Minerva Anderson MD Work Phone: [facility] 02-07-2023 14:38-0400 Body weight 110.59 kg Deborah Norman MD Work Phone: [facility] 02-07-2023 14:38-0400 Diastolic blood pressure 69 mm[Hg] Deborah Norman MD Work Phone: [facility] 02-07-2023 14:38-0400 Heart rate 77 /min Deborah Norman MD Work Phone: [facility] 02-07-2023 14:38-0400 SaO2% (BldA) [Mass fraction] 98 % Deborah Norman MD Work Phone: [facility] 02-07-2023 14:38-0400 Systolic blood pressure 110 mm[Hg] Deborah Norman MD Work Phone: [facility] 02-07-2023 10:08-0400 Body temperature 98.6 [degF] Chair Arya Work Phone: [facility] 02-07-2023 10:08-0400 Diastolic blood pressure 69 mm[Hg] Chair Arya Work Phone: [facility] 02-07-2023 10:08-0400 Heart rate 62 /min Chair [place] Work Phone: [facility] 02-07-2023 10:08-0400 Respiratory rate 18 /min Chair [place] Work Phone: [facility] 02-07-2023 10:08-0400 SaO2% (BldA) [Mass fraction] 96 % Chair [place] Work Phone: [facility] 02-07-2023 10:08-0400 Systolic blood pressure 99 mm[Hg] Chair [place] Work Phone: [facility] 02-04-2023 13:40-0400 Body weight 108.86 kg Micha Mccabe MD Work Phone: [facility] 02-04-2023 13:40-0400 Diastolic blood pressure 69 mm[Hg] Micha Mccabe MD Work Phone: [facility] 02-04-2023 13:40-0400 Heart rate 76 /min Micha Mccabe MD Work Phone: [facility] 02-04-2023 13:40-0400 Systolic blood pressure 105 mm[Hg] Micha Mccabe MD Work Phone: [facility] 01-24-2023 10:49-0400 Body temperature 97.5 [degF] Chair [place] Work Phone: [facility] 01-24-2023 10:49-0400 Diastolic blood pressure 68 mm[Hg] Chair [place] Work Phone: [facility] 01-24-2023 10:49-0400 Heart rate 59 /min Chair Arya Work Phone: [facility] 01-24-2023 10:49-0400 Respiratory rate 18 /min Chair [place] Work Phone: [facility] 01-24-2023 10:49-0400 SaO2% (BldA) [Mass fraction] 97 % Chair [place] Work Phone: [facility] 01-24-2023 10:49-0400 Systolic blood pressure 96 mm[Hg] Chair [place] Work Phone: [facility] 01-22-2023 15:50-0400 Blood Pressure Location Santiago Kong [facility] 01-22-2023 15:50-0400 Diastolic blood pressure 76 mm[Hg] Santiago Kong [facility] 01-22-2023 15:50-0400 Heart rate 103 /min Santiago Kong [facility] 01-22-2023 15:50-0400 SaO2% (BldA) [Mass fraction] 96 % Santiago Kong [facility] 01-22-2023 15:50-0400 Systolic blood pressure 126 mm[Hg] Santiago Kong [facility] 01-22-2023 09:15-0400 Body temperature 97.7 [degF] Chair [place] Work Phone: [facility] 01-22-2023 09:15-0400 Diastolic blood pressure 75 mm[Hg] Chair [place] Work Phone: [facility] 01-22-2023 09:15-0400 Heart rate 59 /min Chair Arya Work Phone: [facility] 01-22-2023 09:15-0400 Respiratory rate 18 /min Chair Arya Work Phone: [facility] 01-22-2023 09:15-0400 SaO2% (BldA) [Mass fraction] 97 % Chair Arya Work Phone: [facility] 01-22-2023 09:15-0400 Systolic blood pressure 111 mm[Hg] Chair [place] Work Phone: [facility] 01-10-2023 09:59-0400 Body temperature 98.01 [degF] Chair [place] Work Phone: [facility] 01-10-2023 09:59-0400 Diastolic blood pressure 84 mm[Hg] Chair [place] Work Phone: [facility] 01-10-2023 09:59-0400 Heart rate 61 /min Chair [place] Work Phone: [facility] 01-10-2023 09:59-0400 Respiratory rate 18 /min Chair [place] Work Phone: [facility] 01-10-2023 09:59-0400 SaO2% (BldA) [Mass fraction] 98 % Chair [place] Work Phone: [facility] 01-10-2023 09:59-0400 Systolic blood pressure 129 mm[Hg] Chair [place] Work Phone: [facility] 01-08-2023 08:19-0400 Body height 187.7 cm Minerva Anderson MD Work Phone: [facility] 01-08-2023 08:19-0400 Body temperature 97.2 [degF] Minerva Anderson MD Work Phone: [facility] 01-08-2023 08:19-0400 Body weight 113.31 kg Minerva Anderson MD Work Phone: [facility] 01-08-2023 08:19-0400 Diastolic blood pressure 73 mm[Hg] Minerva Anderson MD Work Phone: [facility] 01-08-2023 08:19-0400 Heart rate 68 /min Minerva Anderson MD Work Phone: [facility] 01-08-2023 08:19-0400 Respiratory rate 16 /min Minerva Anderson MD Work Phone: [facility] 01-08-2023 08:19-0400 SaO2% (BldA) [Mass fraction] 98 % Minerva Anderson MD Work Phone: [facility] 01-08-2023 08:19-0400 Systolic blood pressure 107 mm[Hg] Minerva Anderson MD Work Phone: [facility] 12-27-2022 10:25-0500 Body temperature 97.59 [degF] Chair [place] Work Phone: [facility] 12-27-2022 10:25-0500 Diastolic blood pressure 59 mm[Hg] Chair Arya Work Phone: [facility] 12-27-2022 10:25-0500 Heart rate 65 /min Chair [place] Work Phone: [facility] 12-27-2022 10:25-0500 Respiratory rate 16 /min Chair [place] Work Phone: [facility] 12-27-2022 10:25-0500 SaO2% (BldA) [Mass fraction] 97 % Chair Koenig Work Phone: [facility] 12-27-2022 10:25-0500 Systolic blood pressure 92 mm[Hg] Chair Koenig Work Phone: [facility] 12-17-2022 15:11-0500 Body height 186.2 cm Minerva Anderson MD Work Phone: [facility] 12-17-2022 15:11-0500 Body temperature 97.3 [degF] Minerva Anderson MD Work Phone: [facility] 12-17-2022 15:11-0500 Body weight 111.22 kg Minerva Anderson MD Work Phone: [facility] 12-17-2022 15:11-0500 Diastolic blood pressure 63 mm[Hg] Minerva Anderson MD Work Phone: [facility] 12-17-2022 15:11-0500 Heart rate 71 /min Minerva Anderson MD Work Phone: [facility] 12-17-2022 15:11-0500 Respiratory rate 16 /min Minerva Anderson MD Work Phone: [facility] 12-17-2022 15:11-0500 SaO2% (BldA) [Mass fraction] 100 % Minerva Anderson MD Work Phone: [facility] 12-17-2022 15:11-0500 Systolic blood pressure 111 mm[Hg] Minerva Anderson MD Work Phone: [facility] 11-19-2022 14:32-0500 Body height 186.2 cm Minerva Anderson MD Work Phone: [facility] 11-19-2022 14:32-0500 Body temperature 97.59 [degF] Minerva Anderson MD Work Phone: [facility] 11-19-2022 14:32-0500 Body weight 110.5 kg Minerva Anderson MD Work Phone: [facility] 11-19-2022 14:32-0500 Diastolic blood pressure 87 mm[Hg] Minerva Anderson MD Work Phone: [facility] 11-19-2022 14:32-0500 Heart rate 77 /min Minerva Anderson MD Work Phone: [facility] 11-19-2022 14:32-0500 Respiratory rate 16 /min Minerva Anderson MD Work Phone: [facility] 11-19-2022 14:32-0500 SaO2% (BldA) [Mass fraction] 98 % Minerva Anderson MD Work Phone: [facility] 11-19-2022 14:32-0500 Systolic blood pressure 126 mm[Hg] Minerva Anderson MD Work Phone: [facility] 11-19-2022 14:12-0500 Body temperature 97.39 [degF] JOSE Key MD Work Phone: [facility] 11-19-2022 14:12-0500 Body weight 110.5 kg JOSE Key MD Work Phone: [facility] 11-19-2022 14:12-0500 Diastolic blood pressure 61 mm[Hg] JOSE Key MD Work Phone: [facility] 11-19-2022 14:12-0500 Heart rate 76 /min JOSE Key MD Work Phone: [facility] 11-19-2022 14:12-0500 Respiratory rate 16 /min JOSE Key MD Work Phone: [facility] 11-19-2022 14:12-0500 SaO2% (BldA) [Mass fraction] 98 % JOSE Key MD Work Phone: [facility] 11-19-2022 14:12-0500 Systolic blood pressure 95 mm[Hg] JOSE Key MD Work Phone: [facility] 11-12-2022 14:08-0500 Body temperature 97.5 [degF] JOSE Key MD Work Phone: [facility] 11-12-2022 14:08-0500 Body weight 110.86 kg JOSE Key MD Work Phone: [facility] 11-12-2022 14:08-0500 Diastolic blood pressure 65 mm[Hg] JOSE Key MD Work Phone: [facility] 11-12-2022 14:08-0500 Heart rate 89 /min JOSE Key MD Work Phone: [facility] 11-12-2022 14:08-0500 Respiratory rate 18 /min JOSE Key MD Work Phone: [facility] 11-12-2022 14:08-0500 SaO2% (BldA) [Mass fraction] 96 % JOSE Key MD Work Phone: [facility] 11-12-2022 14:08-0500 Systolic blood pressure 99 mm[Hg] JOSE Key MD Work Phone: [facility] 11-05-2022 15:06-0500 Body temperature 96.3 [degF] JOSE Key MD Work Phone: [facility] 11-05-2022 15:06-0500 Body weight 112.49 kg JOSE Key MD Work Phone: [facility] 11-05-2022 15:06-0500 Diastolic blood pressure 80 mm[Hg] JOSE Key MD Work Phone: [facility] 11-05-2022 15:06-0500 Heart rate 74 /min JOSE Key MD Work Phone: [facility] 11-05-2022 15:06-0500 Respiratory rate 18 /min JOSE Key MD Work Phone: [facility] 11-05-2022 15:06-0500 SaO2% (BldA) [Mass fraction] 94 % JOSE Key MD Work Phone: [facility] 11-05-2022 15:06-0500 Systolic blood pressure 112 mm[Hg] JOSE Key MD Work Phone: [facility] 10-29-2022 15:18-0500 Body height 186.2 cm Andree Hollis 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.[employer] STORE [employer]GER Work Phone: [facility] 10-29-2022 15:18-0500 Body temperature 96.69 [degF] Andree Hollis 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.[employer] STORE BAGGER Work Phone: [facility] 10-29-2022 15:18-0500 Body weight 111.13 kg Andree Hollis 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.[employer] STORE BAGGER Work Phone: [facility] 10-29-2022 15:18-0500 Diastolic blood pressure 73 mm[Hg] Andree Hollis 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.[employer] STORE BAGGER Work Phone: [facility] 10-29-2022 15:18-0500 Heart rate 78 /min Andree Holils 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.[employer] STORE BAGGER Work Phone: [facility] 10-29-2022 15:18-0500 Respiratory rate 16 /min Andree Hollis 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.[employer] STORE BAGGER Work Phone: [facility] 10-29-2022 15:18-0500 SaO2% (BldA) [Mass fraction] 100 % Andree Hollis 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.[employer] STORE BAGGER Work Phone: [facility] 10-29-2022 15:18-0500 Systolic blood pressure 112 mm[Hg] Andree Hollis 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.[employer] STORE BAGGER Work Phone: [facility] 10-29-2022 14:36-0500 Body temperature 96.69 [degF] Dennis Cheung MD Work Phone: [facility] 10-29-2022 14:36-0500 Body weight 111.13 kg Dennis Cheung MD Work Phone: [facility] 10-29-2022 14:36-0500 Diastolic blood pressure 73 mm[Hg] Dennis Cheung MD Work Phone: [facility] 10-29-2022 14:36-0500 Heart rate 78 /min Dennis Cheung MD Work Phone: [facility] 10-29-2022 14:36-0500 Respiratory rate 16 /min Dennis Cheung MD Work Phone: [facility] 10-29-2022 14:36-0500 SaO2% (BldA) [Mass fraction] 100 % Dennis Cheung MD Work Phone: [facility] 10-29-2022 14:36-0500 Systolic blood pressure 112 mm[Hg] Dennis Cheung MD Work Phone: [facility] 10-24-2022 10:11-0500 Blood Pressure Location ASHLEY VIVI [facility] 10-24-2022 10:11-0500 Diastolic blood pressure 69 mm[Hg] ASHLEY VIVI [facility] 10-24-2022 10:11-0500 Heart rate 70 /min ASHLEY VIVI [facility] 10-24-2022 10:11-0500 Respiratory rate 16 /min ASHLEY VIVI [facility] 10-24-2022 10:11-0500 Systolic blood pressure 117 mm[Hg] ASHLEY VIVI [facility] 10-23-2022 08:11-0500 Body temperature 97.3 [degF] JOSE Key MD Work Phone: [facility] 10-23-2022 08:11-0500 Body weight 112.04 kg JOSE Key MD Work Phone: [facility] 10-23-2022 08:11-0500 Diastolic blood pressure 69 mm[Hg] JOSE Key MD Work Phone: [facility] 10-23-2022 08:11-0500 Heart rate 78 /min JOSE Key MD Work Phone: [facility] 10-23-2022 08:11-0500 Respiratory rate 16 /min JOSE Key MD Work Phone: [facility] 10-23-2022 08:11-0500 SaO2% (BldA) [Mass fraction] 97 % JOSE Key MD Work Phone: [facility] 10-23-2022 08:11-0500 Systolic blood pressure 110 mm[Hg] JOSE Key MD Work Phone: [facility] 10-16-2022 13:33-0500 Body temperature 97.39 [degF] JOSE Key MD Work Phone: [facility] 10-16-2022 13:33-0500 Body weight 111.4 kg JOSE Key MD Work Phone: [facility] 10-16-2022 13:33-0500 Diastolic blood pressure 60 mm[Hg] JOSE Key MD Work Phone: [facility] 10-16-2022 13:33-0500 Heart rate 69 /min JOSE Key MD Work Phone: [facility] 10-16-2022 13:33-0500 Respiratory rate 18 /min JOSE Key MD Work Phone: [facility] 10-16-2022 13:33-0500 SaO2% (BldA) [Mass fraction] 95 % JOSE Key MD Work Phone: [facility] 10-16-2022 13:33-0500 Systolic blood pressure 97 mm[Hg] JOSE Key MD Work Phone: [facility] 10-11-2022 14:49-0500 Body height 186.2 cm Andree Hollis APRN.CNP Work Phone: [facility] 10-11-2022 14:49-0500 Body temperature 97.59 [degF] Andree Hollis 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.[employer] STORE BAGGER Work Phone: [facility] 10-11-2022 14:49-0500 Body weight 113.22 kg Andree Hollis 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.[employer] STORE BAGGER Work Phone: [facility] 10-11-2022 14:49-0500 Diastolic blood pressure 82 mm[Hg] Andree Hollis 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.[employer] STORE BAGGER Work Phone: [facility] 10-11-2022 14:49-0500 Heart rate 97 /min Andere Hollis 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.[employer] STORE BAGGER Work Phone: [facility] 10-11-2022 14:49-0500 Respiratory rate 16 /min Andree Hollis 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.[employer] STORE BAGGER Work Phone: [facility] 10-11-2022 14:49-0500 SaO2% (BldA) [Mass fraction] 96 % Andree Hollis 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.[employer] STORE BAGGER Work Phone: [facility] 10-11-2022 14:49-0500 Systolic blood pressure 147 mm[Hg] Andree Hollis 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.[employer] STORE BAGGER Work Phone: [facility] 10-03-2022 13:30-0500 Blood Pressure Location Joanneportia SANCHEZ [facility] 10-03-2022 13:30-0500 Diastolic blood pressure 70 mm[Hg] Joanneportia GARCIAG [facility] 10-03-2022 13:30-0500 Heart rate 90 /min Joanne STANG [facility] 10-03-2022 13:30-0500 Respiratory rate 18 /min Joanneportia GARCIAG [facility] 10-03-2022 13:30-0500 SaO2% (BldA) [Mass fraction] 96 % Joanneportia GARCIAG [facility] 10-03-2022 13:30-0500 Systolic blood pressure 110 mm[Hg] Joannepotria GARCIAG [facility] 10-02-2022 14:30-0500 Body height 186.2 cm Minerva Anderson MD Work Phone: [facility] 10-02-2022 14:30-0500 Body temperature 97.81 [degF] Minerva Anderson MD Work Phone: [facility] 10-02-2022 14:30-0500 Body weight 113.94 kg Minerva Anderson MD Work Phone: [facility] 10-02-2022 14:30-0500 Diastolic blood pressure 78 mm[Hg] Minerva Anderson MD Work Phone: [facility] 10-02-2022 14:30-0500 Heart rate 83 /min Minerva Anderson MD Work Phone: [facility] 10-02-2022 14:30-0500 Respiratory rate 18 /min Minerva Anderson MD Work Phone: [facility] 10-02-2022 14:30-0500 SaO2% (BldA) [Mass fraction] 97 % Minerva Anderson MD Work Phone: [facility] 10-02-2022 14:30-0500 Systolic blood pressure 113 mm[Hg] Minerva Anderson MD Work Phone: [facility] 09-20-2022 07:56-0500 Body temperature 96.69 [degF] JOSE Key MD Work Phone: [facility] 09-20-2022 07:56-0500 Body weight 113.31 kg JOSE Key MD Work Phone: [facility] 09-20-2022 07:56-0500 Diastolic blood pressure 70 mm[Hg] JOSE Key MD Work Phone: [facility] 09-20-2022 07:56-0500 Heart rate 66 /min JOSE Key MD Work Phone: [facility] 09-20-2022 07:56-0500 Respiratory rate 18 /min JOSE Key MD Work Phone: [facility] 09-20-2022 07:56-0500 SaO2% (BldA) [Mass fraction] 97 % JOSE Key MD Work Phone: [facility] 09-20-2022 07:56-0500 Systolic blood pressure 106 mm[Hg] JOSE Key MD Work Phone: [facility] 09-17-2022 16:03-0500 Body height 186.2 cm Minerva Anderson MD Work Phone: [facility] 09-17-2022 16:03-0500 Body temperature 97.5 [degF] Minerva Anderson MD Work Phone: [facility] 09-17-2022 16:03-0500 Body weight 111.22 kg Minerva Anderson MD Work Phone: [facility] 09-17-2022 16:03-0500 Diastolic blood pressure 72 mm[Hg] Minerva Anderson MD Work Phone: [facility] 09-17-2022 16:03-0500 Heart rate 68 /min Minerva Anderson MD Work Phone: [facility] 09-17-2022 16:03-0500 Respiratory rate 16 /min Minerva Anderson MD Work Phone: [facility] 09-17-2022 16:03-0500 SaO2% (BldA) [Mass fraction] 97 % Minerva Anderson MD Work Phone: [facility] 09-17-2022 16:03-0500 Systolic blood pressure 135 mm[Hg] Minerva Anderson MD Work Phone: [facility] 08-20-2022 08:15-0400 Diastolic blood pressure 101 mm[Hg] Mervat SLAUGHTER [facility] 08-20-2022 08:15-0400 Heart rate 68 /min Mervat SLAUGHTER [facility] 08-20-2022 08:15-0400 Respiratory rate 18 /min Mervat NILL [facility] 08-20-2022 08:15-0400 SaO2% (BldA) [Mass fraction] 96 % Mervat NILL [facility] 08-20-2022 08:15-0400 Systolic blood pressure 139 mm[Hg] Mervat NILL [facility] 08-20-2022 08:12-0400 Diastolic blood pressure 97 mm[Hg] Mervat NILL [facility] 08-20-2022 08:12-0400 Heart rate 67 /min Mervat NILL [facility] 08-20-2022 08:12-0400 Respiratory rate 10 /min Mervat NILL [facility] 08-20-2022 08:12-0400 SaO2% (BldA) [Mass fraction] 96 % Mervat NILL [facility] 08-20-2022 08:12-0400 Systolic blood pressure 130 mm[Hg] Mervat NILL [facility] 08-20-2022 08:05-0400 Diastolic blood pressure 92 mm[Hg] Mervat NILL [facility] 08-20-2022 08:05-0400 Heart rate 69 /min Mervat NILL [facility] 08-20-2022 08:05-0400 Respiratory rate 14 /min Mervat NILL [facility] 08-20-2022 08:05-0400 SaO2% (BldA) [Mass fraction] 93 % Mervat NILL [facility] 08-20-2022 08:05-0400 Systolic blood pressure 127 mm[Hg] Mervat NILL [facility] 08-20-2022 07:50-0400 Body temperature 97.7 [degF] Mervat NILL [facility] 08-20-2022 07:45-0400 Respiratory rate 14 /min Mervat NILL [facility] 08-20-2022 07:40-0400 Respiratory rate 13 /min Mervat NILL [facility] 08-20-2022 07:35-0400 Respiratory rate 14 /min Mervat NILL [facility] 08-20-2022 07:10-0400 Blood Pressure Location Mervat NILL [facility] 08-20-2022 07:10-0400 Body temperature 96.98 [degF] Mervat NILL [facility] 08-14-2022 08:42-0400 Blood Pressure Location Mervat NILL [facility] 08-14-2022 08:42-0400 Diastolic blood pressure 67 mm[Hg] Mervat NILL [facility] 08-14-2022 08:42-0400 Heart rate 63 /min Mervat NILL [facility] 08-14-2022 08:42-0400 Respiratory rate 16 /min Mervat NILL [facility] 08-14-2022 08:42-0400 Systolic blood pressure 114 mm[Hg] Mervat NILL [facility] 05-31-2022 10:53-0400 Blood Pressure Location VALERIE ROBERTS [facility] 05-31-2022 10:53-0400 Diastolic blood pressure 70 mm[Hg] VALERIE SIDELL [facility] 05-31-2022 10:53-0400 Heart rate 74 /min VALERIE SIDELL [facility] 05-31-2022 10:53-0400 SaO2% (BldA) [Mass fraction] 96 % VALERIE SIDELL [facility] 05-31-2022 10:53-0400 Systolic blood pressure 114 mm[Hg] VALERIE SIDELL [facility] 04-03-2022 10:55-0400 Blood Pressure Location Joanneportia GARCIAG [facility] 04-03-2022 10:55-0400 Diastolic blood pressure 62 mm[Hg] Joanne STANG [facility] 04-03-2022 10:55-0400 Heart rate 76 /min Joanne STANG [facility] 04-03-2022 10:55-0400 Respiratory rate 18 /min Joanne STANG [facility] 04-03-2022 10:55-0400 SaO2% (BldA) [Mass fraction] 96 % Joanne STANG [facility] 04-03-2022 10:55-0400 Systolic blood pressure 98 mm[Hg] Joanne STANG [facility] Encounters Encounter Date Encounter Type Care Provider Facility Start: 08-05-2025 ambulatory Corey Barraza ty:CD:[id number] Start: 08-02-2025 End: 08-02-2025 ambulatory LUZ Peña Facility:[facility] Start: 07-28-2025 End: 07-28-2025 ambulatory LORENZO MARIN Facility:[facility] Start: 07-19-2025 End: 07-19-2025 ambulatory LORENZO MARIN Facility:[facility] Start: 07-19-2025 End: 07-19-2025 ambulatory LORENZO MARIN Facility:[facility] Start: 07-15-2025 ambulatory LORENZO MARIN Facilit y:[facility] Start: 07-13-2025 ambulatory MINERVA ANDERSON Facility :[facility] Start: 07-12-2025 End: 07-12-2025 ambulatory Chandrika Camacho Facility:[facility] Start: 07-12-2025 End: 07-12-2025 Patient encounter procedure Chandrika Camacho [facility] Start: 07-01-2025 End: 07-01-2025 ambulatory Olivia Varghese Facility:[facility] Start: 06-18-2025 End: 06-18-2025 Telephone encounter Tari Encarnacion MD Work Phone: Hematology/Oncology Comment on above: Orders Start: 06-18-2025 End: 06-18-2025 Emergency department patient visit Michaeledvin Walter Corrina Facility:[facility] Start: 04-28-2025 End: 04-28-2025 Bamboo flowsheet Chelsie MEHTA Work Phone: [facility] Start: 04-28-2025 End: 04-28-2025 Bamboo flowsheet Chelsie MEHTA Work Phone: [facility] Start: 04-28-2025 End: 04-28-2025 Office outpatient visit 25 minutes Chelsie MEHTA Work Phone: [facility] Comment on above: Right elbow pain (Pr imary Dx); Effusion of right elbow; Arthritis of right elbow Start: 04-28-2025 End: 04-28-2025 ambulatory CHELSIE FERNANDO Not Available Start: 04-12-2025 End: 04-12-2025 Patient encounter procedure Minerva Anderson MD Work Phone: Hematology/Oncology Start: 04-12-2025 End: 04-12-2025 ambulatory Lab/Port [facility] Hernandezy Work Phone: Hematology/Oncology Comment on above: Malignant [...] (Primary Dx) Start: 03-31-2025 End: 03-31-2025 ambulatory LORENZO MARIN Facility:[facility] Start: 03-18-2025 End: 03-19-2025 Telephone encounter Deborah Norman MD Work Phone: Colorectal Surgery Comment on above: Patient Question Start: 03-18-2025 End: 03-18-2025 ambulatory [facility] Work Phone: Start: 03-18-2025 End: 03-18-2025 Patient encounter procedure [facility] Work Phone: Start: 03-10-2025 End: 03-10-2025 ambulatory XXXX NONE Facility:[facility] Start: 03-10-2025 End: 03-10-2025 Patient encounter procedure Pato Peña [facility] Start: 03-08-2025 End: 03-08-2025 Orders Only Deborah Norman MD Work Phone: Colorectal Surgery Comment on above: Encounter for follow -up surveillance of rectal cancer (Primary Dx) Start: 02-15-2025 End: 02-15-2025 ambulatory Corey SINGLETON Facility:[facility] Start: 01-26-2025 End: 01-26-2025 ambulatory LUZ Peña Facility:[facility] Start: 01-26-2025 End: 01-26-2025 Patient encounter procedure Pato Peña [facility] Start: 01-11-2025 End: 01-11-2025 Office outpatient visit 25 minutes Minerva Anderson MD Work Phone: Hematology/Oncology Comment on above: Malignant neoplasm o f rectum (HCC) (Primary Dx); Right lower quadrant abdominal abscess (HCC) Start: 01-11-2025 End: 01-11-2025 ambulatory Lab/Port [facility] Delatorreusky Work Phone: Hematology/Oncology Comment on above: Malignant neoplasm o f rectum (HCC) (Primary Dx) Start: 01-04-2025 End: 01-04-2025 ambulatory DEBORAH NORMAN Facility:[facility] Start: 01-04-2025 ambulatory MINERVA ANDERSON Facility :[facility] Start: 01-04-2025 End: 01-04-2025 Subsequent hospital [...] Start: 12-28-2024 End: 12-28-2024 ambulatory LORENZO MARIN Facility:[facility] Start: 12-28-2024 End: 12-28-2024 Patient encounter procedure Celeste Andrews APRN.CNP Work [...] above: Orders Start: 12-24-2024 End: 12-24-2024 ambulatory [facility] Facility:[facility] Start: 12-24-2024 End: 12-24-2024 Subsequent hospital visit by physician Arrival Time Radiology Work Phone: Radiology Pet CT Comment on above: Malignant neoplasm o f rectum (HCC) [C20] Start: 12-17-2024 End: 12-19-2024 ambulatory [facility] Start: 12-17-2024 End: 12-19-2024 Subsequent hospital visit by physician Negar Pinedo MD Work Phone: [facility] Ul[facility]ound Comment on above: Right lower quadrant [...] (Primary Dx) Start: 11-25-2024 End: 11-25-2024 ambulatory LORENZO MARIN Facility:[facility] Start: 11-24-2024 ambulatory CARMELINA KETCHUM Facility:[facility] Start: 11-24-2024 End: 11-24-2024 Subsequent hospital visit [...] 11-10-2024 Office outpatient visit 25 minutes Kari Diaz PA-C Work Phone: Hematology/Oncology Comment on above: Intra-abdominal and pelvic swelling, mass and lump, unspecified site (Primary Dx); Malignant neoplasm of rectum (HCC) Start: 11-10-2024 End: 11-10-2024 ambulatory Lab/Port [facility] Arya Work Phone: [...] Start: 10-20-2024 End: 10-20-2024 ambulatory DANIEL WERNER Facility:[facility] Start: 10-20-2024 End: 10-20-2024 Lab Drop off DANIEL WERNER [facility] Start: 10-19-2024 End: 10-19-2024 Telephone encounter Deborah Norman MD Work Phone: Colorectal Surgery Comment on above: Patient Question Start: 10-07-2024 End: 10-09-2024 ambulatory LORENZO MARIN [facility] Start: 10-07-2024 End: 10-09-2024 Subsequent hospital visit by physician [facility] Schedule [facility] [place] Start: 09-27-2024 End: 09-27-2024 Emergency department patient visit Micky Cueto [facility] Start: 09-16-2024 End: 09-16-2024 ambulatory LORENZO Asim TOMAS Facility:[facility] Start: 09-16-2024 End: 09-16-2024 Patient encounter procedure Dayanara Sullivan APRN.[employer] ST[employer] BAGGER Work Phone: Colorectal Surgery Comment on above: Encounter for change or removal of drains (Primary Dx) Start: 09-15-2024 End: 09-15-2024 Telephone encounter Deborah Norman MD Work Phone: Colorectal Surgery Comment on above: Patient Question Start: 09-14-2024 End: 09-14-2024 Telephone encounter Deborah Norman MD Work Phone: Colorectal Surgery Comment on above: Patient Question Start: 09-10-2024 End: 09-10-2024 ambulatory XXXX NONE Facility:[facility] Start: 09-10-2024 End: 09-10-2024 Patient encounter procedure Pato Peña [facility] Start: 09-08-2024 End: 09-08-2024 ambulatory MERVAT SOLORZANO Facility:[facility] Start: 09-08-2024 End: 09-08-2024 ambulatory LORENZO MARIN Facility:[facility] Start: 09-08-2024 End: 09-08-2024 Office outpatient visit 15 minutes Minerva Anderson MD Work Phone: Hematology/Oncology Comment on above: Malignant neoplasm o f rectum (HCC) (Primary Dx) Start: 09-07-2024 End: 09-07-2024 Telephone encounter Jaclyn Ramírez RN [facility] Radiol ogy Procedure Comment on above: Radiology Pre Proced ure Instructions Start: 09-04-2024 End: 09-04-2024 Telephone encounter Harvinder Harrell RN [facility] Radio logy Procedure Comment on above: Radiology Pre Proced ure Instructions Abscess (Primary Dx) Start: 09-04-2024 ambulatory LORENZO Asim MARIN Facilit y:[facility] Start: 09-04-2024 End: 09-04-2024 Subsequent hospital visit by physician Gi/Gu [facility] ([facility]-Stat) Work Phone: Radiology Start: 09-04-2024 End: 09-06-2024 ambulatory VALERIE [facility] Start: 09-04-2024 End: 09-06-2024 Subsequent hospital visit by physician [facility] Comment on above: Sleep apnea, unspeci fied type Start: 08-28-2024 End: 09-02-2024 Telephone encounter Mariluz Kolb RN Hematology/Oncology Comment on above: Patient Update Start: 08-27-2024 End: 08-27-2024 Telephone encounter Denisha Duarte RN Work Phone: Hematology/Oncology Comment on above: Care Coordination (A ppointment) Start: 08-25-2024 End: 08-25-2024 ambulatory UNKNOWN PROVIDER Facility:[facility] Start: 08-25-2024 End: 08-25-2024 Subsequent hospital visit by physician [facility] ([facility]) Work Phone: [facility] Radiology CT Scan Comment on above: Malignant neoplasm o f rectum (HCC) [C20] Start: 08-24-2024 End: 08-24-2024 Telephone encounter Deborah Norman MD Work Phone: Colorectal Surgery Comment on above: Patient Question Abscess (Primary Dx) Radiology Pre Proced ure Instructions Start: 08-19-2024 End: 08-19-2024 Telephone encounter Minal Corey RN Hematology/Oncology Comment on above: Orders Start: 08-19-2024 End: 10-12-2024 ambulatory MINERVA ANDERSON Facility:[facility] Start: 08-18-2024 End: 10-12-2024 ambulatory Maulik GONCALVES Facility:[facility] Start: 08-14-2024 End: 08-18-2024 Evaluation and management of inpatient DEBORAH NORMAN Facility:[facility] Start: 08-13-2024 End: 08-13-2024 ambulatory LORENZO MARIN Facility:[facility] Start: 08-13-2024 End: 08-13-2024 Subsequent hospital visit by physician Ashleigh Hummel (I-Stat) Work Phone: CT Scan Comment on above: Infection in abdomen (HCC) [K65.9] Start: 08-13-2024 End: 08-13-2024 ambulatory LORENZO MARIN Facility:[facility] Start: 08-13-2024 End: 08-13-2024 Patient encounter procedure Celeste Andrews APRN.[employer] Work Phone: Colorectal Surgery Comment on above: [...] Evaluation and management of inpatient LORENZO MARIN Facility:[facility] Start: 07-22-2024 End: 07-22-2024 Emergency department patient visit Yuridia Suárezbrie Facility:[facility] Start: 07-22-2024 End: 07-22-2024 Telephone encounter Deborah Norman MD Work Phone: General Surgery Start: 07-21-2024 End: 07-21-2024 Orders Only Deborah Norman MD Work Phone: Colorectal Surgery Comment on above: Encounter for follow -up surveillance of rectal cancer (Primary Dx) Encounter for follow -up surveillance of rectal cancer [Z08, Z85.048] Start: 07-14-2024 End: 07-14-2024 Bamboo flowsheet Xiomara Izquierdo PA Work Phone: [facility] Start: 07-14-2024 End: 07-14-2024 [facility]amboo [facility] Work Phone: [facility] Start: 07-14-2024 End: 07-14-2024 Office outpatient new 30 minutes Xiomara Izquierdo PA Work Phone: [facility] Comment on above: Bacterial folliculit is (Primary Dx); Seborrheic keratosis; Inflamed seborrheic keratosis; Acrochordon; Neoplasm of unspecified behavior of bone, soft tissue, and skin; Pain Start: 07-14-2024 End: 07-14-2024 ambulatory XIOMARA GRECO Not Available Start: 07-08-2024 End: 07-08-2024 Bamboo flowsheet Chelsie MEHTA Work Phone: [facility] Start: 07-08-2024 End: 07-08-2024 Bamboo flowsheet Chelsie Fernando PA Work Phone: [facility] Start: 07-08-2024 End: 07-08-2024 ambulatory CHELSIE FERNANDO Not Available Start: 07-08-2024 End: 07-08-2024 Office outpatient visit 15 minutes Chelsie MEHTA Work Phone: [facility] Comment on above: Right foot pain (Lani jaclyn Dx); Right ankle tendonitis Start: 06-26-2024 End: 06-29-2024 Telephone encounter Minerva Anderson MD Work Phone: Hematology/Oncology Comment on above: Orders Start: 06-04-2024 End: 06-04-2024 Subsequent hospital visit by physician Mri [facility] (Istat/3t) Work Phone: [facility] Radiology MRI Comment on above: Malignant neoplasm o f rectum (HCC) [C20] Start: 05-27-2024 End: 05-27-2024 ambulatory CHELSIE FERNANDO Not Available Start: 05-21-2024 End: 05-21-2024 ambulatory Lab/[facility] [place] Arya Work Phone: Hematology/Oncology Start: 05-21-2024 End: 05-21-2024 Follow-up encounter Lab/[place] Work Phone: Hematology/Oncology Comment on above: Encounter [...] Available Start: 03-27-2024 End: 03-27-2024 ambulatory SHANNON SANTOS [facility] Start: 03-12-2024 End: 03-12-2024 ambulatory Minerva Anderson [...] End: 02-14-2024 Patient encounter procedure Corey SINGLETON [facility] Start: 02-14-2024 End: 02-14-2024 Patient encounter procedure Corey Casillas [facility] Start: 02-11-2024 End: 02-11-2024 ambulatory Lab[facility] [place] Arya Work Phone: Hematology/Oncology Start: 02-11-2024 End: 02-11-2024 Follow-up encounter Lab/[facility] [place] Work Phone: Hematology/Oncology Comment on above: Encounter for follow -up surveillance of rectal cancer; Rectal cancer (HCC) Start: 01-28-2024 End: 01-28-2024 Patient encounter procedure Pato Peña [facility] Start: 01-06-2024 End: 01-06-2024 ambulatory Lab/[facility] [place] [facility] [place] Work Phone: [facility] Start: 01-06-2024 End: 01-06-2024 Follow-up encounter Lab/[facility] [place] Work Phone: Hematology/Oncology Comment on above: Encounter for follow -up surveillance of rectal cancer Start: 12-30-2023 End: 12-31-2023 ambulatory Abhinav Mazariegos MD Facility:[facility] Start: 12-23-2023 Telephone encounter Minal Cain Hematology/Oncology Comment on above: Results Start: 12-20-2023 End: 12-20-2023 Subsequent hospital visit by physician Arrival Time Radiology Work Phone: Radiology Pet CT Comment on above: Malignant neoplasm o f rectum (HCC) [C20] Start: 12-03-2023 End: 12-03-2023 Subsequent hospital visit by physician Mri [facility] (Istat/3t) Work Phone: [facility] Radiology MRI Comment on above: Malignant [...] 10-09-2023 End: 10-09-2023 Pain Management Joanne Webster [facility] Start: 09-26-2023 Refill Minerva Anderson MD Work Phone: Hematology/Oncology Comment on above: Refill Request Start: 08-27-2023 Telephone encounter Minerva wong MD Work Phone: Cancer [facility] Comment on above: Future Appointment Start: 08-22-2023 End: 08-22-2023 Patient encounter procedure Corey Alec SINGLETON [facility] Start: 08-14-2023 End: 08-14-2023 ambulatory Lorenzo Marin Facility:[facility] Start: 08-14-2023 End: 08-14-2023 ambulatory DO Lorenzo Marin Work Phone: [facility] Work Phone: Start: 08-14-2023 End: 08-14-2023 Patient encounter procedure DO Lorenzo Marin Work Phone: [facility]-MRI [address] Work Phone: Start: 07-24-2023 Follow-up encounter eDborah cain MD Work Phone: Colorectal Surgery Comment on above: Encounter for follow -up surveillance of rectal cancer (Primary Dx) Start: 07-16-2023 End: 07-16-2023 ambulatory Valencia Webster Other [employer] Other Start: 07-16-2023 Office outpatient vi sit 25 minutes Valencia Webster [facility] Neurosurgery Start: 07-09-2023 End: 07-09-2023 Subsequent hospital [...] RN Work Phone: Hematology/Oncology Comment on above: [employer] (Lab Results; Neuropathy) Start: 06-20-2023 End: 06-20-2023 Subsequent hospital visit by physician Arrival Time Radiology Work Phone: Radiology Pet CT Comment on above: Malignant neoplasm o f rectum (HCC) [C20] Start: 06-20-2023 End: 06-20-2023 ambulatory Lab/[facility] [place] [facility] [place] Work Phone: Hematology/Oncology Comment on above: Rectal cancer (HCC) Start: 06-19-2023 Telephone encounter Denisha mello RN Work Phone: Hematology/Oncology Comment on above: Care Coordination (L ab Request) Start: 06-18-2023 End: 06-18-2023 ambulatory [employer] Other [facility] [employer] Other Start: 06-18-2023 Office outpatient vi sit 15 minutes [employer] [facility] Neurosurgery Start: 06-17-2023 End: 06-27-2023 Pre-admission assessment Corey SINGLETON [facility] Start: 05-28-2023 End: 05-28-2023 Patient encounter procedure Minerva Anderson MD Work Phone: [facility] Start: 05-28-2023 End: 05-28-2023 ambulatory Lab/[facility] [place] Work Phone: Hematology/Oncology Comment on above: Rectal cancer (HCC) Rectal cancer (HCC) (Primary Dx); Neoplasm related pain (acute) (chronic); Rheumatoid arthritis involving multiple sites, unspecified whether rheumatoid factor present (HCC); Acute deep vein thrombosis (DVT) of distal vein of left lower extremity (HCC) Start: 05-22-2023 End: 05-22-2023 ambulatory Valencia Webster Facility:[facility] Start: 05-22-2023 End: 05-22-2023 ambulatory DO Lorenzo Marin Work Phone: [facility] Work Phone: Start: 05-22-2023 End: 05-22-2023 Patient encounter procedure DO Lorenzo Marin Work Phone: [facility]-MRI [address] [place] Work Phone: Start: 05-17-2023 End: 05-17-2023 Patient encounter procedure Bryon Cruz [facility] Start: 05-14-2023 Telephone encounter Denisha mello RN Work Phone: Hematology/Oncology Comment on above: Care Coordination (O rders ) Start: 05-07-2023 End: 05-07-2023 Pain Management Bryon Cruz [facility] Start: 05-06-2023 Refill Minerva Anderson MD Work Phone: [facility] Comment on above: Refill Request Start: 05-03-2023 Telephone encounter Deborah cain MD Work Phone: Colorectal Surgery Comment on above: Orders (Flex sig, CE A, MRI, CT) [employer] Appointment (Pt call ing to let Chelsie know that 07/09, Saturday would be his best option for colonoscopy. ) Start: 04-29-2023 End: 04-29-2023 Patient encounter procedure Joanne SANCHEZ [facility] Start: 04-18-2023 ambulatory DEBORAH NORMAN Facility:[facility] Start: 04-17-2023 Telephone encounter Denisha mello RN Work Phone: Hematology/Oncology Comment on above: Care Coordination (P otassium Results) Start: 04-16-2023 End: 04-16-2023 ambulatory Lab/[facility] [place] Arya Work Phone: Hematology/Oncology Comment on above: Rectal cancer (HCC) Start: 04-11-2023 Encounter for other specified special examinations Valencia Webster [facility] Neurosurgery Start: 04-11-2023 Office outpatient ne w 45 minutes Valencia Webster [facility] Neurosurgery Start: 04-11-2023 End: 04-11-2023 ambulatory DO Lornezo Asim Marin Work Phone: [facility] Work Phone: Start: 04-11-2023 End: 04-11-2023 Patient encounter procedure DO Lorenzo Marin Work Phone: [facility] Work Phone: Start: 04-09-2023 End: 04-09-2023 Subsequent hospital visit by physician Deborah Norman MD Work Phone: Procedures Comment on above: Rectal cancer (HCC) [C20] Start: 03-26-2023 ambulatory [facility] Provider Paulino pappas Comment on above: Colonoscopy prep ins tructions Start: 03-26-2023 E-mail encounter fro m caregiver [facility] Provider [facility] Start: 03-26-2023 Telephone encounter Deborah cain MD Work Phone: Colorectal Surgery Comment on above: Patient Question Care Coordination (M RI Question) Start: 03-21-2023 End: 03-21-2023 ambulatory Chair 20 A[place] Work Phone: Hematology/Oncology Comment on above: Rectal cancer (HCC) (Primary Dx) Start: 03-20-2023 Telephone encounter Santiago Lema [facility] Work Phone: [facility] Comment on above: [...] End: 03-18-2023 Emergency department patient visit Yuridia Waletr brie [facility] Start: 03-13-2023 End: 03-13-2023 Patient encounter procedure Dania Key MD Work Phone: Radiation Oncology Comment on above: Rectal cancer (HCC) (Primary Dx); Malignant neoplasm of prostate (HCC) Start: 03-05-2023 End: 03-05-2023 ambulatory Chair 5 [place] Work Phone: Hematology/Oncology Comment on above: Rectal cancer (HCC) (Primary Dx) Start: 03-01-2023 Telephone encounter Minerva wong MD Work Phone: Hematology/Oncology Comment on above: Lab Orders Start: 02-26-2023 Telephone encounter Samantha Hewitt [facility] Work Phone: H[facility]PITAL PHARM[facility] HB-3 Comment on above: Medication Assistanc e (Approved for Free Xarelto) Start: 02-21-2023 End: 02-21-2023 ambulatory Chair 20 [place] Work Phone: Hematology/Oncology Comment on above: Rectal [...] (Primary Dx) Start: 01-23-2023 Refill Celeste gaona [facility] Work Phone: HOSPITAL PHARMACY -3 Comment on above: Refill Request Care Coordination (D VT; Eliqucharline) Start: 01-22-2023 Telephone encounter Denisha mello RN Work Phone: Hematology/Oncology Comment on above: Care Coordination (U S Order) Start: 01-22-2023 End: 01-22-[address] Work Phone: [facility] Start: 01-22-2023 End: 01-22-[address] Work Phone: Nutrition Therapy Comment on above: Nutrition Counseling Start: 01-22-2023 End: 01-22-2023 Patient encounter procedure Santiago Kong [facility] Start: 01-22-2023 End: 01-22-2023 ambulatory Lab/[facility] [place] Work Phone: Hematology/Oncology Comment on above: Rectal cancer (HCC) (Primary Dx) Rectal cancer (HCC) (Primary Dx); Leg swelling; Left ankle swelling Start: 01-18-2023 Telephone encounter Minerva wong MD Work Phone: Hematology/Oncology Comment on above: Lab Orders Start: 01-14-2023 Telephone encounter Denisha mello RN Work Phone: Hematology/Oncology 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) Start: 01-10-2023 End: 01-10-2023 Patient encounter procedure Joanne SANCHEZ [facility] Start: 01-10-2023 End: 01-10-2023 ambulatory Chair 20 [place] Work Phone: Hematology/Oncology Comment on above: Rectal [...] call) Start: 12-27-2022 End: 12-27-2022 ambulatory Chair 20 [...] 5FU) Start: 12-20-2022 Telephone encounter Celeste Bray [facility] Work Phone: Hematology/Oncology Comment on above: Erroneous encounter- disregard Start: 12-19-2022 Telephone encounter Milton Arndt RN [facility] Radiology Procedure Comment on above: [...] encounter Minerva wong MD [facility] Comment on above: Referral Information [...] 11-19-2022 End: 11-19-2022 Patient encounter procedure Dania Key MD Work [...] End: 11-08-2022 Patient encounter procedure Lab/Port [place] Work Phone: Radiation Oncology Comment on above: Rectal cancer (HCC) Start: 11-07-2022 Telephone encounter Andree eaton APRN.[employer] Work Phone: Radiation Oncology Comment on above: Pain Orders Start: 11-05-2022 End: 11-05-2022 Patient encounter procedure Dania Key MD Work Phone: Radiation Oncology Comment on above: Rectal cancer (HCC) (Primary Dx) Start: 10-29-2022 End: 10-29-2022 ambulatory Andree Hollis APRN.[employer] Work Phone: Hematology/Oncology Comment on above: Rectal cancer (HCC) (Primary Dx); Abnormal PET scan of lung; Pulmonary embolus with infarction (HCC); Rheumatoid arthritis involving multiple sites, unspecified whether rheumatoid factor present (HCC) Start: 10-29-2022 End: 10-29-2022 Patient encounter procedure Andree Hollis APRN.[employer] ST[employer] Work Phone: [facility] Comment on above: Rectal cancer (HCC) (Primary Dx) Start: 10-24-2022 Refill Jaclyn Brewer [facility] arm Services Start: 10-24-2022 End: 10-24-2022 Patient encounter procedure ASHLEY TRINIDAD [facility] Start: 10-23-2022 End: 10-23-2022 Patient encounter procedure Dania Key MD Work Phone: Radiation Oncology Comment on above: Rectal adenocarcinom a (HCC) Start: 10-19-2022 End: 10-19-[address] Work Phone: [facility] Start: 10-19-2022 End: 10-19-[address] Work Phone: Nutrition Therapy Comment on above: Nutrition Counseling Start: 10-16-2022 End: 10-16-2022 Patient encounter procedure Dania Key MD Work Phone: Radiation Oncology Comment on above: Rectal adenocarcinom a (HCC) (Primary Dx) Start: 10-11-2022 End: 10-11-2022 ambulatory Andree Hollis 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.[employer] STORE [employer]AGGER Work Phone: Hematology/Oncology Comment on above: Rectal cancer (HCC) (Primary Dx); Pulmonary embolus with infarction (HCC) Start: 10-11-2022 End: 10-11-2022 Patient encounter procedure Andree Hollis 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.[employer] STORE [employer]AGGER Work Phone: [facility] Start: 10-11-2022 Telephone encounter Denisha Duarte Hematology/Oncology Comment on above: Care Coordination (O ral Anti-Cancer Agent Follow Up) Start: 10-09-2022 Telephone encounter Hang garay MD Work Phone: [facility] Endoscopy - ENDO Comment on above: Appointment Start: 10-08-2022 End: 10-08-2022 ambulatory Hang Sarabia MD Work Phone: Pulmonology Comment on above: Adenopathy (Primary Dx); Rectal adenocarcinoma (HCC); Rheumatoid arthritis involving multiple sites, unspecified whether rheumatoid factor present (HCC) Start: 10-08-2022 End: 10-08-2022 Telemedicine consultation with patient Hang Sarabia MD Work Phone: [facility] Start: 10-08-2022 End: 10-08-2022 Patient encounter procedure Dania Key MD Work Phone: Radiation Oncology Comment on above: Rectal adenocarcinom a (HCC) (Primary Dx) Start: 10-08-2022 End: 10-08-2022 Nursing evaluation of patient and report Ma Nurse [place] Delatrore Work Phone: Hematology/Oncology Comment on above: Adenopathy Start: 2022 Orders Only Hang cain MD Work Phone: Pulmonary Medicine Comment on above: Adenopathy (Primary Dx) Bronchoscopy Schedul ing Care Coordination (M edication Question) Care Coordination (B ronchoscopy) Start: 10-03-2022 End: 10-03-2022 Patient encounter procedure Joanne SANCHEZ [facility] Start: 10-03-2022 End: 10-03-2022 Patient encounter procedure Joanne Dumont LAURA [facility] Start: 10-02-2022 End: 10-02-2022 Patient [...] Start: 10-01-2022 End: 10-01-2022 ambulatory Lorenzo Marin Facility:[facility] Start: 10-01-2022 End: 10-01-2022 ambulatory DO Lorenzo Marin Work Phone: [facility] Work Phone: Start: 10-01-2022 End: 10-01-2022 Patient encounter procedure DO Lorenzo Marin Work Phone: [facility] [place] Start: 10-01-2022 Telephone encounter Denisha Duarte Hematology/Oncology [...] encounter Minerva wong MD Work Phone: [facility] [employer] Comment on above: Future Appointment Start: 09-20-2022 End: 09-20-2022 Patient encounter procedure Dania Key MD Work Phone: Radiation Oncology Comment on above: Rectal adenocarcinom a (HCC) (Primary Dx) Start: 09-18-2022 Telephone encounter Minerva wong MD Work Phone: [facility] [employer] Comment on above: Call Back 48 Hours Start: 09-17-2022 End: 09-17-2022 ambulatory Minerva Anderson MD Work Phone: Hematology/Oncology Comment on above: Rectal cancer (HCC) (Primary Dx); Rheumatoid arthritis involving multiple sites, unspecified whether rheumatoid factor present (HCC) Start: 09-17-2022 End: 09-17-2022 Patient encounter procedure Minerva Anderson MD Work Phone: [place] Start: 09-17-2022 Chart abstracting Minerva del cid MD Work Phone: Hematology/Oncology Start: 09-11-2022 End: 09-12-2022 ambulatory [facility] Start: 09-06-2022 Telephone encounter Minal Cain Hematology/Oncology Comment on above: Appointment Start: 09-05-2022 End: 09-05-2022 ambulatory [facility] Start: 08-22-2022 End: 08-22-2022 ambulatory [facility] Start: 08-20-2022 End: 08-20-2022 Patient encounter procedure Mervat SLAUGHTER [facility] Start: 08-14-2022 End: 08-14-2022 Patient encounter procedure Mervat Casillas KASANDRA [facility] General Surgery [place] Start: 08-06-2022 End: 02-14-2023 Recurring JONAH KARUNA KERENELAINEJAQUELIN [facility] Start: 05-31-2022 End: 05-31-2022 Lab Drop off VALERIE ROBERTS [facility] Start: 05-31-2022 End: 05-31-2022 Patient encounter procedure VALERIE ROBERTS [facility] [place] Start: 04-30-2022 End: 07-29-2022 Recurring JONAH VELIZELAINEJAQUELIN [facility] Start: 04-03-2022 End: 04-03-2022 Patient encounter procedure Joanne SANCHEZ [facility] Start: 11-07-2021 End: 02-05-2022 Patient encounter procedure Lorenzo MARIN [facility] Start: 04-04-2021 Encounter for preprocedural laboratory examination [facility] Start: 04-03-2021 End: 04-03-[address] LORENZO MARIN Facility:[facility] Start: 03-31-2021 Encounter for preprocedural cardiovascular examination [facility] Start: 03-31-2021 Encounter for preprocedural laboratory examination [facility] Start: 03-28-2021 End: 03-29-[address] LORENZO MARIN Facility:[facility] Start: 03-28-2021 End: 03-29-2021 Encounter for preprocedural laboratory examination DR LORENZO MARIN Facility:[facility] Start: 03-23-2021 End: 03-24-2021 ambulatory SONAM ZAMBRANO Facility:[facility] Start: 03-23-2021 End: 03-24-2021 Encounter for preprocedural cardiovascular examination SONAM ZAMBRANO Facility:[facility] Start: 02-02-2021 End: 02-03-2021 ambulatory LINK STEVENS Facility:[facility] Procedures Date Procedure Procedure Detail Performing [...] Blood count complete auto&auto difrntl wbc Floresita Nava [employer]IMENTEL[employer] STORE BAGGER Work Phone: Start: 12-17-2024 Us abdominal real ti me w/image documentation Negar Pinedo MD Work Phone: Start: 12-07-2024 Blood count complete auto&auto difrntl wbc Minerva Anderson MD Work Phone: Start: 11-24-2024 Sigmoidoscopy flx dx w/collj spec br/wa if pfrmd Deborah Norman MD Work Phone: Start: 11-10-2024 Ct pelvis w/contrast material Kari Diaz PA-C Work Phone: Start: 11-10-2024 Blood count complete auto&auto difrntl wbc Kari Diaz PA-C Work Phone: Start: 09-04-2024 Cntrst njx assmt abs c/hand cloth cutter via drg cath/tube spx Deborah Norman MD Work Phone: Start: 08-19-2024 Partial resection of colon Paot Peña Start: 08-14-2024 Antibody screen MINERVA العلي Comment on above: Order Comment: Speci men Type: BLOOD SPECIMENOrdering Facility: [facility] Address: [address] [place] [address] Performed By: #### T SCR ####MARITZA BLOOD BANKCLIA [id number] [address] Start: 08-13-2024 Ct abdomen & pelvis w/contrast material Celeste Andrews 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.[employer] STORE BAGGER Work Phone: Start: 08-13-2024 Basic metabolic pane l calcium total Celeste Angela 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.[employer] STORE BAGGER Work Phone: Start: 07-22-2024 Antibody screen MINERVA العلي Comment on above: Order Comment: Speci men Type: BLOOD SPECIMENOrdering Facility: [facility] Address: [address] [place] [address] Performed By: #### T SCR ####MARITZA BLOOD BANKCLIA [id number] [address] Start: 07-21-2024 Colonoscopy flx dx w /collj spec when pfrmd Deborah Norman MD Work Phone: Start: 07-21-2024 Colonoscopy Deborah cain MD Work Phone: Start: 07-14-2024 SKIN / NAIL BIOPSY Musa MEHTA Work Phone: Start: 07-14-2024 CRYOTHERAPY SKIN LESION Xiomara MEHTA Work Phone: Start: 07-08-2024 CAST / SPLINT / FX Kiko MEHTA Work Phone: Start: 02-25-2024 Sigmoidoscopy flx dx [...] MD Work Phone: Start: 08-22-2023 Urodynamic studies Montyr jannet SINGLETON Start: 08-14-2023 MR lumbar spine wo [...] pelvi s and lower extremity DO Lorenzo Marin Work Phone: Start: 04-11-2023 X-ray of cervical spine DO Lorenzo Marin Work Phone: Start: 04-09-2023 Level iv surg pathol ogy gross&microscopic exam Deborah Norman MD Work Phone: Start: 04-09-2023 Colonoscopy flx dx w /collj spec when pfrmd Deborah Norman MD Work Phone: Start: 04-09-2023 Colonoscopy [place] Work Phone: Start: 03-19-2023 Blood count complete auto&auto difrntl wbc Andree Wild HERNANDEZNShirleyGROCERY STORE BAGGER Work Phone: Start: 02-19-2023 Blood count complete [...] extraction and insertion of intraocular lens Lorenzo TOAMS Comment on above: left Start: 02-12-2019 Cataract extraction and insertion of intraocular lens Lorenzo MARIN Start: 01-01-2018 Laparoscopic repair of inguinal hernia Lorenzo MARIN Comment on above: ROBOTIC ASSISTED RIG HT INGUINAL HERNIA REPAIR WITH MESH Start: 05-23-2016 Cystoscopy Lorenzosaba HAGER Start: 03-22-2016 Extracorporeal shock wave lithotripsy of calculus of kidney Lorenzo MARIN Comment on above: 01/05/2016, 03/08/20 16 Start: 12-22-2015 Extracorporeal shock wave lithotripsy of calculus of kidney Lorenzo MARIN Comment on above: 12/15/2015 Start: 09-28-2015 Cystoscopy Lorenzosaba HAGER Cervical arthrodesis Lorenzo MARIN Cervical arthrodesis Mervat SLAUGHTER Colonoscopy Lorenzo MARIN Hammer toe operation Lorenzo MARIN Hemorrhoidectomy Mervat Dumont Plan of Treatment Date Care Activity Detail Author Start: 07-21-2034 Screening for malignant neoplasm of colon [facility] Start: 04-09-2033 Screening for malignant neoplasm of colon [facility] Start: 11-24-2029 Screening for malignant neoplasm of colon [facility] [facility] Start: 02-24-2029 Screening for malignant neoplasm of colon [facility] Start: 11-05-2028 Screening for malignant neoplasm of colon [facility] Start: 07-09-2028 Colorectal Cancer Screening Colorectal Cancer Screening [facility] Start: 07-09-2028 Screening for malignant neoplasm of colon [facility] Start: 07-09-2028 SIGMOIDOSCOPY SIGMOIDOSCOPY [facility] Start: 04-12-2028 Diabetes Screening Diabetes Screening [facility] Start: 01-12-2028 Diabetes Screening Diabetes Screening [facility] Start: 12-25-2027 Diabetes Screening Diabetes Screening [facility] Start: 12-07-2027 Diabetes Screening Diabetes Screening [facility] Start: 11-10-2027 Diabetes Screening Diabetes Screening [facility] Start: 2027 RSV Vaccine (1 - 1-dose 75+ series) RSV Vaccine (1 - 1-dose 75+ series) [facility] Start: 09-27-2027 Diabetes Screening Diabetes Screening [facility] Start: 09-08-2027 Diabetes Screening Diabetes Screening [facility] Start: 08-18-2027 Diabetes Screening Diabetes Screening [facility] Start: 08-13-2027 Diabetes Screening Diabetes Screening [facility] Start: 07-29-2027 Diabetes Screening Diabetes Screening [facility] Start: 07-22-2027 Diabetes Screening Diabetes Screening [facility] Start: 02-10-2027 Diabetes Screening Diabetes Screening [facility] Start: 12-19-2026 Diabetes Screening Diabetes Screening [facility] Start: 11-21-2026 Diabetes Screening Diabetes Screening [facility] Start: 08-27-2026 Diabetes Screening Diabetes Screening [facility] Start: 06-20-2026 DIABETES SCREEN DIABETES SCREEN [facility] Start: 06-20-2026 Diabetes Screening Diabetes Screening [facility] Start: 05-28-2026 DIABETES SCREEN DIABETES SCREEN [facility] Start: 05-14-2026 DIABETES SCREEN DIABETES SCREEN [facility] Start: 04-16-2026 DIABETES SCREEN DIABETES SCREEN [facility] Start: 03-19-2026 DIABETES SCREEN DIABETES SCREEN [facility] Start: 03-05-2026 DIABETES SCREEN DIABETES SCREEN [facility] Start: 02-19-2026 DIABETES SCREEN DIABETES SCREEN [facility] Start: 02-05-2026 DIABETES SCREEN DIABETES SCREEN [facility] Start: 01-22-2026 DIABETES SCREEN DIABETES SCREEN [facility] Start: 01-08-2026 DIABETES SCREEN DIABETES SCREEN [facility] Start: 12-25-2025 DIABETES SCREEN DIABETES SCREEN [facility] Start: 12-17-2025 DIABETES SCREEN DIABETES SCREEN [facility] Start: 12-15-2025 Depression Screen Depression Screen [facility] Start: 11-19-2025 DIABETES SCREEN DIABETES SCREEN [facility] Start: 01-09-2026 DIABETES SCREEN DIABETES SCREEN [facility] Start: 10-11-2025 DIABETES SCREEN DIABETES SCREEN [facility] Start: 10-08-2025 End: 10-08-2025 Patient encounter procedure 10/08/2025 10:00 AM EST Office Visit Colorectal Surgery [address] [place] [address] [place] [address] [place], [place] [id number] F/up per Dr. Norman Colorectal Surgery Comment on above: F/up per Dr. Norman Start: 10-02-2025 DIABETES SCREEN DIABETES SCREEN [facility] Start: 09-17-2025 DIABETES SCREEN DIABETES SCREEN [facility] Start: 07-21-2025 Screening for malignant neoplasm of colon Colonoscopy [facility] Start: 07-19-2025 End: 07-19-2025 ambulatory 07/19/2025 3:00 PM EDT Visit (SP) Office Hematology/Oncology [address] [place] [address] Tari Encarnacion MD [address] [place] [address] 3 month FISH/BRM for MRI ct and lab results Hematology/Oncology Comment on above: 3 month FISH/BRM for MRI ct and lab resul ts Start: 07-15-2025 End: 10-14-2025 Carcinoembryonic Ag [Mass/volume] in Serum or Plasma CARCINOEMBRYONIC ANTIGEN Lab Routine Malignant neoplasm of rectum (HCC) Expected: 07/15/2025 (Approximate), Expires: 10/14/2025 [facility] Comment on above: Expected: 07/15/2025 (Approximate), Expi res: 10/14/2025 Start: 07-15-2025 End: 10-14-2025 CBC W Auto Differential panel - Blood COMPLETE BLOOD COUNT AND DIFFERENTIAL Lab Routine Malignant neoplasm of rectum (HCC) Expected: 07/15/2025 (Approximate), Expires: 10/14/2025 [facility] Comment on above: Expected: 07/15/2025 (Approximate), Expi res: 10/14/2025 Start: 07-15-2025 End: 10-14-2025 Comprehensive metabolic 2000 panel - Serum or Plasma COMPREHENSIVE METABOLIC PANEL Lab Routine Malignant neoplasm of rectum (HCC) Expected: 07/15/2025 (Approximate), Expires: 10/14/2025 [facility] Comment on above: Expected: 07/15/2025 (Approximate), Expi res: 10/14/2025 Start: 07-15-2025 End: 07-15-2025 Patient encounter procedure 07/15/2025 8:45 AM EDT Appointment Radiology Pet CT [address] [place] [address] Ct CAP with contrast port flush and lab draw Radiology Pet CT Comment on above: Ct CAP with contrast port flush and lab draw Start: 07-13-2025 End: 07-13-2025 Patient encounter procedure 07/13/2025 10:20 AM EDT Appointment [facility] [place] [address] [place] [address] MRI Rectum W/WO Dr Minerva Anderson [facility] Radiology MRI Comment on above: MRI Rectum W/WO Dr Minerva Anderson Start: 06-21-2025 Influenza vaccination [facility] Start: 05-25-2025 End: 05-25-2025 Patient encounter procedure 05/25/2025 9:30 AM EDT Appointment Procedures [address] [place] [address] [place] [address] [place] [address] Encounter for follow-up surveillance of rectal cancer [Z08, Z85.048] Procedures Comment on above: Encounter for follow-up surveillance of rectal cancer [Z08, Z85.048] Start: 05-18-2025 End: 05-18-2025 Patient encounter procedure 05/18/2025 9:15 AM EDT Office Visit [facility] [address] [place] [address] Chelsie Fernando PA [address] [place] [address] [facility] Start: 04-28-2025 End: 04-28-2025 Patient encounter procedure 04/28/2025 9:30 AM EDT Office Visit [facility] [address] [place] [address] Chelsie Fernando PA [address] [facility] [address] [place] [address] Right elbow pain (Primary Dx) [facility] Comment on above: Right elbow pain (Primary Dx) Start: 04-12-2025 End: 04-12-2025 Follow-up encounter Hematology/Oncology Comment on above: 3 month follow up with lab port draw and flush Start: 03-31-2025 End: 03-31-2025 Patient encounter procedure 03/31/2025 3:00 PM EDT Office Visit Colorectal Surgery [address] [place], [place] [id number] [place] [address] [place], [place] [phone] rectal bleeding. Colorectal Surgery Comment on above: rectal bleeding. Start: 03-27-2025 Depression Screen Depression Screen [facility] Start: 03-11-2025 End: 03-11-2025 Patient encounter procedure 03/11/2025 10:45 AM EDT Office Visit [facility] Pulmonology [address] [place] [address] [address] [place] [address] [place] [address] [place] [address] [address] [place] [address] 3M F/U [facility] Comment on above: 3M F/U Start: 01-11-2025 End: 01-11-2025 Follow-up encounter 01/11/2025 9:40 AM EDT Visit (SP) Office Hematology/Oncology [address] [place] [address] Minerva Anderson MD [address] [place] [address] 4 week follow up for Ct And MRI results Hematology/Oncology Comment on above: 4 week follow up for Ct And MRI results Start: 01-04-2025 End: 01-04-2025 Admission to same day surgery center 01/04/2025 12:55 PM EDT - 01/04/2025 1:55 PM EDT Surgery [facility] Operating Room [id number] [place] [address] [place] [address] [place] [address] INCISION AND DRAINAGE ABSCESS ABDOMEN SIMPLE OR SINGLE [facility] Operating [facility] Comment on above: INCISION AND DRAINAGE ABSCESS ABDOMEN SI MPLE OR SINGLE Start: 01-04-2025 End: 01-04-2025 Incision & drainage abscess simple/single INCISION AND DRAINAGE ABSCESS ABDOMEN SIMPLE OR SINGLE Abdominal wall abscess 01/04/2025 12:55 PM EDT [facility] Start: 01-04-2025 End: 01-04-2025 Admission to same day surgery center 01/04/2025 11:50 AM EDT - 01/04/2025 12:50 PM EDT Surgery [facility] Operating Room [address] [place] [address] [place] [address] [id number] INCISION AND DRAINAGE ABSCESS ABDOMEN SIMPLE OR SINGLE [facility] Operating [facility] Comment on above: INCISION AND DRAINAGE ABSCESS ABDOMEN SI MPLE OR SINGLE Start: 01-04-2025 End: 01-04-2025 Incision & drainage abscess simple/single INCISION AND DRAINAGE ABSCESS ABDOMEN SIMPLE OR SINGLE Abdominal wall abscess 01/04/2025 11:50 AM EDT [facility] Start: 01-04-2025 Subsequent hospital visit by physician [facility] Comment on above: Abdominal wall abscess [L02.211] Start: 01-04-2025 End: 01-04-2025 Follow-up encounter 01/04/2025 9:40 AM EDT Visit (SP) Office Hematology/Oncology [address] [place] [address] [place] [address] Minerva Anderson MD [address] [place] [address] [place] [address] 4 week follow up for Ct And MRI results Hematology/Oncology Comment on above: 4 week follow up for Ct And MRI results Start: 01-04-2025 End: 01-04-2025 Patient encounter procedure Radiology Comment on above: MRI Rectal w/wo contrast f/u with pcp // sxc Start: 12-29-2024 End: 12-29-2024 Patient encounter procedure 12/29/2024 9:00 AM EDT Appointment Radiology [address] [place] [address] MRI Rectal w/wo contrast Radiology Comment on above: MRI Rectal w/wo contrast Start: 12-28-2024 End: 12-28-2024 Patient encounter procedure 12/28/2024 7:00 AM EDT Office Visit Colorectal Surgery [address] [place] [address] Celeste Andrews APRN.[employer] STORE BAGGER [address], [facility] [address] [place] [address] Est Pt: Abdominal Abscess, Okay to Add on per Chelsie Colorectal Surgery Comment on above: Est Pt: Abdominal Abscess, Okay to Add o n per Chelsie Start: 12-24-2024 End: 03-25-2025 Carcinoembryonic Ag [Mass/volume] in Serum or Plasma [facility] Work Phone: Comment on above: Expected: 12/24/2024 (Approximate), Expi res: 03/25/2025 Start: 12-24-2024 End: 12-24-2024 Patient encounter procedure 12/24/2024 9:45 AM EST Appointment Radiology Pet CT [address] [facility] [place] [address] Ct CAP with contrast and lab ` Radiology Pet CT Comment on above: Ct CAP with contrast and lab ` Start: 12-07-2024 End: 12-07-2024 Follow-up encounter 12/07/2024 9:00 AM EST Visit (SP) Office Hematology/Oncology [address] [facility] [address] Minerva Anderson MD [address] [place] [address] follow up after Sigmoidoscopy Hematology/Oncology Comment on above: follow up after Sigmoidoscopy Start: 12-07-2024 End: 12-07-2024 Patient encounter procedure 12/07/2024 8:45 AM EST Office Visit [facility] [address] [place] [address] follow up after Sigmoidoscopy [facility] Comment on above: follow up after Sigmoidoscopy Start: 11-25-2024 End: 11-25-2024 ambulatory 11/25/2024 10:30 AM EST Results Only [facility] [address] [facility] [place] [address] [facility] Start: 11-24-2024 End: 11-24-2024 Follow-up encounter 11/24/2024 9:20 AM EST Visit (SP) Office Hematology/Oncology [address] [place] [address] Minerva Anderson MD [address] [place] [address] [place] [address] 3 month follow up with lab / Requested BRM if possible Hematology/Oncology Comment on above: 3 month follow up with lab / Requested B RM if possible Start: 11-24-2024 End: 11-24-2024 Patient encounter procedure [facility] Comment on above: 3 month follow up with lab Encounter for follow -up surveillance of rectal cancer [Z08, Z85.048] Start: 11-23-2024 End: 11-23-2024 ambulatory 11/23/2024 3:00 PM EST Visit (SP) Office Hematology/Oncology [address] [place] [address] Minerva Anderson MD [address] [place] [address] Scan Hematology/Oncology Comment on above: RV after CT Scan Start: 11-10-2024 End: 02-09-2025 Carcinoembryonic Ag [Mass/volume] in Serum or Plasma CARCINOEMBRYONIC ANTIGEN Lab Routine Intra-abdominal and pelvic swelling, mass and lump, unspecified site Malignant neoplasm of rectum (HCC) Expected: 11/10/2024, Expires: 02/09/2025 [facility] Comment on above: Expected: 11/10/2024, Expires: Start: 11-10-2024 End: 02-09-2025 CREATININE BLD CREATININE BLD Lab Routine Intra-abdominal and pelvic swelling, mass and lump, unspecified site Malignant neoplasm of rectum (HCC) Expected: 11/10/2024, Expires: 02/09/2025 [facility] Work Phone: Comment on above: Expected: 11/10/2024, Expires: Start: 11-10-2024 End: 11-10-2024 Follow-up encounter 11/10/2024 10:30 AM EST Visit (SP) Office Hematology/Oncology [address] [place] [address] Kari Diaz PA-C [address] [place] [address] 3 month follow up with lab / Requested BRM if possible Hematology/Oncology Comment on above: 3 month follow up with lab / Requested B RM if possible Start: 11-10-2024 End: 11-10-2024 Patient encounter procedure 11/10/2024 10:15 AM EST Office Visit [facility] [address] [place] [address] [place] [address] 3 month follow up with lab [facility] Comment on above: 3 month follow up with lab Start: 10-21-2024 Advance Directive Discussion Advance Directive Discussion [facility] Start: 09-16-2024 End: 09-16-2024 Patient encounter procedure 09/16/2024 2:00 PM EST Office Visit Colorectal Surgery [address] [phone] Dayanara Sullivan APRN.[employer] STORE [employer]AGGER [address] [place], [place] [phone] Drain removal Colorectal Surgery Comment on above: Drain removal Start: 09-15-2024 End: 09-15-2024 Patient encounter procedure 09/15/2024 8:40 AM EST Office Visit [facility] [address] [place] [address] Xiomara Greco PA [address] [place] [address] [facility] Start: 09-08-2024 End: 09-08-2024 Admission to same day surgery center 09/08/2024 1:00 PM EST - 09/08/2024 2:30 PM EST Surgery [facility] Radiology Procedure [address] [place] [address] Mervat Solorzano MD [address] [place] [address] EXCHANGE OF PREVIOUSLY PLACED ABSCESS OR CYST DRAINAGE CATHETER UNDER RADIOLOGICAL GUIDANCE [facility] Radiology Procedure Comment on above: EXCHANGE OF PREVIOUSLY PLACED ABSCESS OR CYST DRAINAGE CATHETER UNDER RADIOLOGICAL GUIDANCE Start: 09-08-2024 End: 09-08-2024 Exchng absc/hand cloth cutter drg cath rad gid spx EXCHANGE OF PREVIOUSLY PLACED ABSCESS OR CYST DRAINAGE CATHETER UNDER RADIOLOGICAL GUIDANCE Abscess 09/08/2024 1:00 PM [facility] Start: 09-08-2024 Subsequent hospital visit by physician 09/08/2024 1:00 PM EST Hospital Encounter [facility] Radiology Procedure [address] [place] [address] Mervat Solorzano MD [address] [place] [address] Abscess [L02.91] [facility] Radiology Procedure Comment on above: Abscess [L02.91] Start: 09-08-2024 End: 09-08-2024 Follow-up encounter 09/08/2024 9:20 AM EST Visit (SP) Office Hematology/Oncology [facility] [place] [address] Minerva Anderson MD [address] [place] [address] 5 month follow up Hematology/Oncology Comment on above: 5 month follow up Start: 09-03-2024 End: 09-03-2024 Patient encounter procedure 09/03/2024 10:00 AM EST Appointment Radiology Pet CT [address] [place] [address] CT Abdomen/Pelvis with IVC Radiology Pet CT Comment on above: CT Abdomen/Pelvis with IVC Start: 09-01-2024 End: 09-01-2024 Follow-up encounter Hematology/Oncology Comment on above: 5 month follow up and lab 5 month follow up Start: 08-25-2024 End: 08-25-2024 Admission to same day surgery center 08/25/2024 3:10 PM EST - 08/25/2024 4:10 PM EST Surgery [facility] Radiology Procedure [address] [place] [address] Shawna Manrique, DO [address] [place] [address] EXCHANGE OF PREVIOUSLY PLACED ABSCESS OR CYST DRAINAGE CATHETER UNDER RADIOLOGICAL GUIDANCE [facility] Radiology Procedure Comment on above: EXCHANGE OF PREVIOUSLY PLACED ABSCESS OR CYST DRAINAGE CATHETER UNDER RADIOLOGICAL GUIDANCE Start: 08-25-2024 End: 08-25-2024 Exchng absc/hand cloth cutter drg cath rad gid spx EXCHANGE OF PREVIOUSLY PLACED ABSCESS OR CYST DRAINAGE CATHETER UNDER RADIOLOGICAL GUIDANCE Abscess 08/25/2024 3:10 PM EST [facility] Start: 08-25-2024 Subsequent hospital visit by physician 08/25/2024 3:10 PM EST Hospital Encounter [facility] Radiology Procedure [address] [place] [address] Shawna Manrique, DO [address] [place] [address] Abscess [L02.91] [facility] Radiology Procedure Comment on above: Abscess [L02.91] Start: 08-25-2024 End: 08-25-2024 Patient encounter procedure [facility] Radiology CT Scan Comment on above: CT ABD/PEL W CT ABD/PEL with--- o k'd with Kiko Start: 08-25-2024 End: 08-25-2024 ambulatory 08/25/2024 8:15 AM [facility] Center Hematology/Oncology [address] [place] [address] labs Hematology/Oncology Comment on above: labs Start: 08-13-2024 End: 08-13-2024 ambulatory 08/13/2024 3:30 PM EDT Results Only [facility] [address] [place] [address] Arrived [facility] Comment on above: Arrived Start: 08-13-2024 Subsequent hospital visit by physician 08/13/2024 2:19 PM EDT Hospital Encounter CT Scan [address] [place] [address] Infection in abdomen (HCC) [K65.9] CT Scan Comment on above: Infection in abdomen (HCC) [K65.9] Start: 08-13-2024 End: 08-13-2024 Patient encounter procedure 08/13/2024 12:40 PM EDT Office Visit Colorectal Surgery [address] [place], [place] [phone] Celeste Andrews, 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.GROCERY STORE BAGGER [address] [place] [address] Post op/2 weeks /Lap RHC/07/22 Colorectal Surgery Comment on above: Post op/2 weeks /Lap RHC/07/22 Start: 08-11-2024 End: 08-11-2024 Follow-up encounter 08/11/2024 9:30 AM EDT Visit (SP) Office Hematology/Oncology [address] [place] [address] [place] [address] Minerva Anderson MD [address] [place] [address] 5 month follow up after ct and lab Hematology/Oncology Comment on above: 5 month follow up after ct and lab Start: 08-04-2024 End: 11-03-2024 Carcinoembryonic Ag [Mass/volume] in Serum or Plasma CARCINOEMBRYONIC ANTIGEN Lab Routine Rectal cancer (HCC) Expected: 08/04/2024 (Approximate), Expires: 11/03/2024 [facility] Work Phone: Comment on above: Expected: 08/04/2024 (Approximate), Expi res: 11/03/2024 Start: 08-04-2024 End: 11-03-2024 CBC W Auto Differential panel - Blood COMPLETE BLOOD COUNT AND DIFFERENTIAL Lab Routine Rectal cancer (HCC) Expected: 08/04/2024 (Approximate), Expires: 11/03/2024 [facility] Comment on above: Expected: 08/04/2024 (Approximate), Expi res: 11/03/2024 Start: 08-04-2024 End: 11-03-2024 Comprehensive metabolic 2000 panel - Serum or Plasma COMPREHENSIVE METABOLIC PANEL Lab Routine Rectal cancer (HCC) Expected: 08/04/2024 (Approximate), Expires: 11/03/2024 [facility] Comment on above: Expected: 08/04/2024 (Approximate), Expi res: 11/03/2024 Start: 08-04-2024 End: 08-04-2024 ambulatory 08/04/2024 10:30 AM EDT Results Only [facility] [address] [place] [address] [facility] Start: 08-04-2024 End: 08-04-2024 Patient encounter procedure 08/04/2024 8:15 AM EDT Appointment Radiology Pet CT [address] [place] [address] Ct CAP with contrast and lab port slsh and draw Radiology Pet CT Comment on above: Ct CAP with contrast and lab port slsh a nd draw Start: 07-21-2024 End: 07-21-2024 Patient encounter procedure 07/21/2024 9:30 AM EDT Appointment Procedures [address] [place] [address] [place] [address] [place] [address] Encounter for follow-up surveillance of rectal cancer [Z08, Z85.048] Procedures Comment on above: Encounter for follow-up surveillance of rectal cancer [Z08, Z85.048] Start: 07-14-2024 End: 07-14-2024 Patient encounter procedure [facility] Comment on above: Actinic keratosis Start: 06-21-2024 COVID-19 Vaccine ( season) COVID-19 Vaccine () [facility] Start: 06-21-2024 COVID-19 Vaccine () COVID-19 Vaccine () [facility] Start: 06-21-2024 Covid-19 Vaccine () Covid-19 Vaccine () [facility] Start: 06-21-2024 Covid-19 Vaccine () Covid-19 Vaccine () [facility] Start: 06-21-2024 Influenza vaccination [facility] Start: 06-04-2024 End: 06-04-2024 Patient encounter procedure 06/04/2024 11:40 AM EDT Appointment [facility] Radiology MRI [address] [place] [address] MRI of Rectum with and without contrast [facility] Radiology MRI Comment on above: MRI of Rectum with and without contrast Start: 06-04-2024 End: 06-04-2024 ambulatory 06/04/2024 10:30 AM EDT [facility] Center Hematology/Oncology [address] [place] [address] port flush q 3 month Hematology/Oncology Comment on above: port flush q 3 month Start: 05-21-2024 Influenza vaccination Flu vaccine (#1) [facility] Start: 05-21-2024 End: 05-21-2024 ambulatory 05/21/2024 9:30 AM EDT Results Only [facility] [address] [facility] [place] [address] [facility] Start: 04-09-2024 Colonoscopy COLONOSCOPY [facility] Start: 04-09-2024 COLORECTAL CANCER SCREENING COLORECTAL CANCER SCREENING [facility] Start: 04-09-2024 Screening for malignant neoplasm of colon Colonoscopy [facility] Start: 03-12-2024 End: 03-12-2024 ambulatory Hematology/Oncology Comment on above: 16 week flollow up with lab port flush Start: 02-25-2024 End: 02-25-2024 Patient encounter procedure 02/25/2024 11:30 AM EDT Appointment Procedures [address] [place] [address] [place] [address] [place], [place] [phone] rectal cancer surveillance Procedures Comment on above: rectal cancer surveillance Start: 10-21-2023 Advance Directive Discussion Advance Directive Discussion [facility] Start: 10-21-2023 Behavioral Health Screening Behavioral Health Screening [facility] Start: 10-21-2023 Depression Assessment Depression Assessment [facility] Start: 09-16-2023 Annual Wellness Visit (Medicare) Annual Wellness Visit (Medicare) [facility] Start: 09-04-2023 Covid-19 Vaccine () Covid-19 Vaccine () [facility] Start: 08-24-2023 End: 10-24-2023 Carcinoembryonic Ag [Mass/volume] in Serum or Plasma [facility] BLD Lab Routine Encounter for follow-up surveillance of rectal cancer Expected: 08/24/2023 (Approximate), Expires: 10/24/2023 [facility] Work Phone: Comment on above: Expected: 08/24/2023 (Approximate), Expi res: 10/24/2023 Start: 08-03-2023 End: 10-03-2023 Carcinoembryonic Ag [Mass/volume] in Serum or Plasma CEA BLD Lab Routine Encounter for follow-up surveillance of rectal cancer Expected: 08/03/2023, Expires: 10/03/2023 [facility] Work Phone: Comment on above: Expected: 08/03/2023, Expires: Start: 06-21-2023 Covid-19 Vaccine () Covid-19 Vaccine () [facility] Start: 06-21-2023 Influenza vaccination [facility] Start: 06-20-2023 End: 08-20-2023 Carcinoembryonic Ag [Mass/volume] in Serum or Plasma [facility] Work Phone: Comment on above: Expected: 06/20/2023, Expires: 3 Start: 06-20-2023 End: 08-20-2023 CBC W Auto Differential panel - Blood CBC + DIFF Lab Routine Rectal cancer (HCC) Expected: 06/20/2023, Expires: 08/20/2023 [facility] Work Phone: Comment on above: Expected: 06/20/2023, Expires: 3 Start: 06-20-2023 End: 08-20-2023 Comprehensive metabolic 2000 panel - Serum or Plasma COMP METABOLIC PANEL Lab Routine Rectal cancer (HCC) Expected: 06/20/2023, Expires: 08/20/2023 [facility] Work Phone: Comment on above: Expected: 06/20/2023, Expires: 3 Start: 06-20-2023 End: 08-20-2023 Magnesium [Mass/volume] in Serum or Plasma MAGNESIUM BLD Lab Routine Rectal cancer (HCC) Expected: 06/20/2023, Expires: 08/20/2023 [facility] Work Phone: Comment on above: Expected: 06/20/2023, Expires: 3 Start: 05-22-2023 MR Cervical spine WO and W contrast IV [facility] Start: 05-22-2023 MRI of cervical spine with contrast MR cervical spine wo/w con [facility] Start: 03-05-2023 End: 05-05-2023 Carcinoembryonic Ag [Mass/volume] in Serum or Plasma CEA BLD Lab Routine Rectal cancer (HCC) Expected: 03/05/2023, Expires: 05/05/2023 [facility] Work Phone: Comment on above: Expected: 03/05/2023, Expires: Start: 03-05-2023 End: 05-05-2023 CBC W Auto Differential panel - Blood CBC + DIFF Lab Routine Rectal cancer (HCC) Expected: 03/05/2023, Expires: 05/05/2023 [facility] Work Phone: Comment on above: Expected: 03/05/2023, Expires: Start: 03-05-2023 End: 05-05-2023 Comprehensive metabolic 2000 panel - Serum or Plasma COMP METABOLIC PANEL Lab Routine Rectal cancer (HCC) Expected: 03/05/2023, Expires: 05/05/2023 [facility] Work Phone: Comment on above: Expected: 03/05/2023, Expires: Start: 02-07-2023 End: 04-09-2023 CBC W Auto Differential panel - Blood CBC + DIFF Lab Routine Leg swelling Rectal cancer (HCC) Left ankle swelling Expected: 02/07/2023, Expires: 04/09/2023 [facility] Work Phone: Comment on above: Expected: 02/07/2023, Expires: 3 Start: 02-07-2023 End: 04-09-2023 Comprehensive metabolic 2000 panel - Serum or Plasma COMP METABOLIC PANEL Lab Routine Leg swelling Rectal cancer (HCC) Left ankle swelling Expected: 02/07/2023, Expires: 04/09/2023 [facility] Work Phone: Comment on above: Expected: 02/07/2023, Expires: Start: 01-18-2023 End: 03-20-2023 Carcinoembryonic Ag [Mass/volume] in Serum or Plasma CEA BLD Lab Routine Rectal cancer (HCC) Expected: 01/18/2023, Expires: 03/20/2023 [facility] Work Phone: Comment on above: Expected: 01/18/2023, Expires: Start: 01-18-2023 End: 03-20-2023 CBC W Auto Differential panel - Blood CBC + DIFF Lab Routine Rectal cancer (HCC) Expected: 01/18/2023, Expires: 03/20/2023 [facility] Work Phone: Comment on above: Expected: 01/18/2023, Expires: 3 Start: 01-18-2023 End: 03-20-2023 Comprehensive metabolic 2000 panel - Serum or Plasma COMP METABOLIC PANEL Lab Routine Rectal cancer (HCC) Expected: 01/18/2023, Expires: 03/20/2023 [facility] Work Phone: Comment on above: Expected: 01/18/2023, Expires: 3 Start: 12-25-2022 End: 02-24-2023 CBC W Auto Differential panel - Blood CBC + DIFF Lab Routine Rectal cancer (HCC) Expected: 12/25/2022, Expires: 02/24/2023 [facility] Work Phone: Comment on above: Expected: 12/25/2022, Expires: 3 Start: 12-25-2022 End: 02-24-2023 Comprehensive metabolic 2000 panel - Serum or Plasma COMP METABOLIC PANEL Lab Routine Rectal cancer (HCC) Expected: 12/25/2022, Expires: 02/24/2023 [facility] Work Phone: Comment on above: Expected: 12/25/2022, Expires: 3 Start: 11-21-2022 End: 01-21-2023 Carcinoembryonic Ag [Mass/volume] in Serum or Plasma CEA BLD Lab Routine Rectal cancer (HCC) Abnormal PET scan of lung Pulmonary embolus with infarction (HCC) Rheumatoid arthritis involving multiple sites, unspecified whether rheumatoid factor present (HCC) Expected: 11/21/2022, Expires: 01/21/2023 [facility] Work Phone: Comment on above: Expected: 11/21/2022, Expires: 3 Start: 11-21-2022 End: 01-21-2023 CBC W Auto Differential panel - Blood CBC + DIFF Lab Routine Rectal cancer (HCC) Abnormal PET scan of lung Pulmonary embolus with infarction (HCC) Rheumatoid arthritis involving multiple sites, unspecified whether rheumatoid factor present (HCC) Expected: 11/21/2022, Expires: 01/21/2023 [facility] Work Phone: Comment on above: Expected: 11/21/2022, Expires: 3 Start: 11-21-2022 End: 01-21-2023 Comprehensive metabolic 2000 panel - Serum or Plasma COMP METABOLIC PANEL Lab Routine Rectal cancer (HCC) Abnormal PET scan of lung Pulmonary embolus with infarction (HCC) Rheumatoid arthritis involving multiple sites, unspecified whether rheumatoid factor present (HCC) Expected: 11/21/2022, Expires: 01/21/2023 [facility] Work Phone: Comment on above: Expected: 11/21/2022, Expires: 3 Start: 11-01-2022 End: 01-01-2023 Carcinoembryonic Ag [Mass/volume] in Serum or Plasma CEA BLD Lab Routine Pulmonary embolus with infarction (HCC) Rectal cancer (HCC) Expected: 11/01/2022, Expires: 01/01/2023 [facility] Work Phone: Comment on above: Expected: 11/01/2022, Expires: 3 Start: 11-01-2022 End: 01-01-2023 CBC W Auto Differential panel - Blood CBC + DIFF Lab Routine Pulmonary embolus with infarction (HCC) Rectal cancer (HCC) Expected: 11/01/2022, Expires: 01/01/2023 [facility] Work Phone: Comment on above: Expected: 11/01/2022, Expires: 3 Start: 11-01-2022 End: 01-01-2023 Comprehensive metabolic 2000 panel - Serum or Plasma COMP METABOLIC PANEL Lab Routine Pulmonary embolus with infarction (HCC) Rectal cancer (HCC) Expected: 11/01/2022, Expires: 01/01/2023 [facility] Work Phone: Comment on above: Expected: 11/01/2022, Expires: 3 Start: 10-21-2022 ADVANCE DIRECTIVE DISCUSSION ADVANCE DIRECTIVE DISCUSSION [facility] Start: 10-21-2022 DEPRESSION ASSESSMENT DEPRESSION ASSESSMENT [facility] Start: 10-01-2022 MR Abdomen WO and W contrast IV [facility] Start: 10-01-2022 MRI of abdomen with contrast MR abdomen wo/w con [facility] Start: 09-17-2022 End: 11-17-2022 Carcinoembryonic Ag [Mass/volume] in Serum or Plasma [facility] Work Phone: Comment on above: Expected: 09/17/2022, Expires: 3 Start: 09-17-2022 End: 11-17-2022 CBC W Auto Differential panel - Blood CBC + DIFF Lab Routine Rectal cancer (HCC) Expected: 09/17/2022, Expires: 11/17/2022 [facility] Work Phone: Comment on above: Expected: 09/17/2022, Expires: 3 Start: 09-17-2022 End: 11-17-2022 Comprehensive metabolic 2000 panel - Serum or Plasma COMP METABOLIC PANEL Lab Routine Rectal cancer (HCC) Expected: 09/17/2022, Expires: 11/17/2022 [facility] Work Phone: Comment on above: Expected: 09/17/2022, Expires: 3 Start: 06-21-2022 Influenza vaccination INFLUENZA (#1) [facility] Start: 11-15-2021 COVID-19 VACCINE (4 - Booster) COVID-19 VACCINE (4 - Booster) [facility] Start: 11-15-2021 COVID-19 VACCINE (6 - Booster) COVID-19 VACCINE (6 - Booster) [facility] Start: 11-15-2021 COVID-19 VACCINE (6 - Mixed Product risk series) COVID-19 VACCINE (6 - Mixed Product risk series) [facility] Start: 10-21-2021 ADVANCE DIRECTIVE DISCUSSION ADVANCE DIRECTIVE DISCUSSION [facility] Start: 10-21-2021 DEPRESSION ASSESSMENT DEPRESSION ASSESSMENT [facility] Start: 08-04-2021 DIABETES SCREEN DIABETES SCREEN [facility] Start: 02-17-2021 COVID-19 VACCINE (3 - Booster for Pfizer series) COVID-19 VACCINE (3 - Booster for Pfizer series) [facility] Start: 11-19-2020 Shingles vaccine (2 of 2) Shingles vaccine (2 of 2) [facility] Start: 11-19-2020 SHINGRIX VACCINE (2 of 2) SHINGRIX VACCINE (2 of 2) [facility] Start: 2017 PNEUMOCOCCAL: 65+ (1 - PCV) PNEUMOCOCCAL: 65+ (1 - PCV) [facility] Start: 09-20-2017 Medicare Annual Wellness Visit Medicare Annual Wellness Visit [facility] Start: 2012 Respiratory Syncytial Virus (RSV) or age 60 yrs+ (1 - Risk 60-74 years 1-dose series) Respiratory Syncytial Virus (RSV) or age 60 yrs+ (1 - Risk 60-74 years 1-dose series) [facility] Start: 2012 RSV Vaccine (1 - 1-dose 60+ series) RSV Vaccine (1 - 1-dose 60+ series) [facility] Start: 2012 RSV Vaccine (1 - Risk 60-74 years 1-dose series) RSV Vaccine (1 - Risk 60-74 years 1-dose series) [facility] Start: 2002 SHINGRIX VACCINE (1 of 2) SHINGRIX VACCINE (1 of 2) [facility] Start: 1997 COLOGUARD (FIT-DNA) COLOGUARD (FIT-DNA) [facility] Start: 1997 Colonoscopy COLONOSCOPY [facility] Start: 1997 COLORECTAL CANCER SCREENING COLORECTAL CANCER SCREENING [facility] Start: [address] COLONOGRAPHY [facility] Start: 1997 FECAL OCCULT BLOOD FECAL OCCULT BLOOD [facility] Start: 1997 Screening for malignant neoplasm of colon [facility] Start: 1997 SIGMOIDOSCOPY SIGMOIDOSCOPY [facility] Start: 04-28-1997 Hepatitis B vaccine (2 of 3 - 19+ 3-dose series) Hepatitis B vaccine (2 of 3 - 19+ 3-dose series) [facility] Start: 1992 Lipid panel Lipids [facility] Start: 1987 Lipid 1996 panel - Serum or Plasma Lipid Screening [facility] Start: 1987 Lipid panel Lipid Screening [facility] Start: 1987 LIPID SCREEN LIPID SCREEN [facility] Start: 1971 DTaP/Tdap/Td vaccine (1 - Tdap) DTaP/Tdap/Td vaccine (1 - Tdap) [facility] Start: 1971 Urine microalbumin profile [facility] Start: 1970 Anxiety Screening Anxiety Screening [facility] Start: 1970 Depression Screening Depression Screening [facility] Start: 1970 HEPATITIS C SCREENING HEPATITIS C SCREENING [facility] Start: 1970 Hepatitis C screening [facility] Start: 1952 Screening for malignant neoplasm of colon [facility] Carcinoembryonic Ag [Mass/volume] in Serum or Plasma CEA BLD Lab Routine Rectal cancer (HCC) Primary hypercoagulable state (HCC) Rheumatoid arthritis involving multiple sites, unspecified whether rheumatoid factor present (HCC) 03/19/2023 8:23 AM [facility] Work Phone: Carcinoembryonic Ag [Mass/volume] in Serum or Plasma CEA BLD Lab Routine Rectal cancer (HCC) 04/16/2023 8:53 AM [facility] Work Phone: Carcinoembryonic Ag [Mass/volume] in Serum or Plasma CEA BLD Lab Routine Rectal cancer (HCC) 05/28/2023 9:15 AM [facility] Work Phone: End: 10-09-2024 Carcinoembryonic Ag [Mass/volume] in Serum or Plasma CEA BLD Lab Routine Encounter for follow-up surveillance of rectal cancer Every 3 months for 4 Occurrences starting 10/10/2023 until 10/09/2024 [facility] Work Phone: Comment on above: Every 3 months for 4 Occurrences startin g 10/10/2023 until 10/09/2024 Carcinoembryonic Ag [Mass/volume] in Serum or Plasma CEA BLD Lab Routine Encounter for follow-up surveillance of rectal cancer 01/06/2024 8:53 AM [facility] Work Phone: Carcinoembryonic Ag [Mass/volume] in Serum or Plasma CEA BLD Lab Routine Encounter for follow-up surveillance of rectal cancer 02/11/2024 8:14 AM [facility] Work Phone: Carcinoembryonic Ag [Mass/volume] in Serum or Plasma CEA BLD Lab Routine Encounter for follow-up surveillance of rectal cancer 05/21/2024 10:00 AM T [facility] Work Phone: Carcinoembryonic Ag [Mass/volume] in Serum or Plasma CARCINOEMBRYONIC ANTIGEN Lab Routine Malignant neoplasm of rectum (HCC) 04/12/2025 10:22 AM [facility] Work Phone: End: 12-18-2022 CBC W Auto Differential panel - Blood CBC + DIFF Lab Routine Rectal cancer (HCC) Once per week for 6 Occurrences starting 11/07/2022 until 12/18/2022 [facility] Work Phone: Comment on above: Once per week for 6 Occurrences starting 11/07/2022 until 12/18/2022 Clostridioides diffi cile toxin genes [Presence] in Stool by MIGUE with probe detection C. DIFFICILE PCR Lab Routine Diarrhea of presumed infectious origin Ordered: 08/13/2024 [facility] Work Phone: Comment on above: Ordered: 08/13/2024 End: 02-08-2024 COLONOSCOPY DIAGNOSTIC COLONOSCOPY DIAGNOSTIC Endoscopy Routine Rectal cancer (HCC) 1 Occurrences starting 02/07/2023 until 02/08/2024 [facility] Work Phone: Comment on above: 1 Occurrences starting 02/07/2023 until 02/08/2024 End: 12-19-2023 Ct abdomen & pelvis w/contrast material CT ABD/PEL W IVCON Radiology Routine Lung nodules Rectal cancer (HCC) 1 Occurrences starting 11/19/2022 until 12/19/2023 [facility] Work Phone: Comment on above: 1 Occurrences starting 11/19/2022 until 12/19/2023 End: 04-11-2025 CT Abdomen and Pelvis W contrast IV CT ABD/PEL W IVCON Radiology Routine Malignant neoplasm of rectum (HCC) 1 Occurrences starting 03/12/2024 until 04/11/2025 [facility] Comment on above: 1 Occurrences starting 03/12/2024 until 04/11/2025 CT Abdomen and Pelvi s W contrast IV CT ABD/PEL W IVCON Radiology Routine Malignant neoplasm of rectum (HCC) 08/25/2024 10:38 AM EST [facility] Work Phone: End: 01-06-2026 CT Abdomen and Pelvis W contrast IV CT ABD/PEL W IVCON Radiology Routine Malignant neoplasm of rectum (HCC) 1 Occurrences starting 12/07/2024 until 01/06/2026 [facility] Comment on above: 1 Occurrences starting 12/07/2024 until 01/06/2026 End: 05-12-2026 CT Abdomen and Pelvis W contrast IV CT ABD/PEL W IVCON Radiology Routine Malignant neoplasm of rectum (HCC) 1 Occurrences starting 04/12/2025 until 05/12/2026 [facility] Comment on above: 1 Occurrences starting 04/12/2025 until 05/12/2026 End: 07-18-2026 CT Abdomen and Pelvis W contrast IV CT ABD/PEL W IVCON Radiology Routine Malignant neoplasm of rectum (HCC) 1 Occurrences starting 06/18/2025 until 07/18/2026 [facility] Comment on above: 1 Occurrences starting 06/18/2025 until 07/18/2026 End: 06-01-2024 Ct abdomen w/contrast material CT ABDOMEN W IVCON Radiology Routine Malignant neoplasm of rectum (HCC) 1 Occurrences starting 05/03/2023 until 06/01/2024 [facility] Work Phone: Comment on above: 1 Occurrences starting 05/03/2023 until 06/01/2024 End: 07-24-2024 Ct abdomen w/contrast material CT ABDOMEN W IVCON Radiology Routine Malignant neoplasm of rectum (HCC) 1 Occurrences starting 06/25/2023 until 07/24/2024 [facility] Work Phone: Comment on above: 1 Occurrences starting 06/25/2023 until 07/24/2024 End: 04-11-2025 CT Chest W contrast IV CT CHEST W IVCON Radiology Routine Malignant neoplasm of rectum (HCC) 1 Occurrences starting 03/12/2024 until 04/11/2025 [facility] Comment on above: 1 Occurrences starting 03/12/2024 until 04/11/2025 End: 01-06-2026 CT Chest W contrast IV CT CHEST W IVCON Radiology Routine Malignant neoplasm of rectum (HCC) 1 Occurrences starting 12/07/2024 until 01/06/2026 [facility] Comment on above: 1 Occurrences starting 12/07/2024 until 01/06/2026 End: 05-12-2026 CT Chest W contrast IV CT CHEST W IVCON Radiology Routine Malignant neoplasm of rectum (HCC) 1 Occurrences starting 04/12/2025 until 05/12/2026 [facility] Comment on above: 1 Occurrences starting 04/12/2025 until 05/12/2026 End: 07-18-2026 CT Chest W contrast IV CT CHEST W IVCON Radiology Routine Malignant neoplasm of rectum (HCC) 1 Occurrences starting 06/18/2025 until 07/18/2026 [facility] Work Phone: Comment on above: 1 Occurrences starting 06/18/2025 until 07/18/2026 End: 12-19-2023 CT CHEST W IVCON CT CHEST W IVCON Radiology Routine Lung nodules 1 Occurrences starting 11/19/2022 until 12/19/2023 [facility] Work Phone: Comment on above: 1 Occurrences starting 11/19/2022 until 12/19/2023 End: 06-01-2024 CT CHEST W IVCON CT CHEST W IVCON Radiology Routine Malignant neoplasm of rectum (HCC) 1 Occurrences starting 05/03/2023 until 06/01/2024 [facility] Work Phone: Comment on above: 1 Occurrences starting 05/03/2023 until 06/01/2024 End: 07-24-2024 CT CHEST W IVCON CT CHEST W IVCON Radiology Routine Malignant neoplasm of rectum (HCC) 1 Occurrences starting 06/25/2023 until 07/24/2024 [facility] Work Phone: Comment on above: 1 Occurrences starting 06/25/2023 until 07/24/2024 CT Guidance for radi ation treatment of Unspecified body region CT SIM PLANNING RADIATION ONCOLOGY Radiology Routine Rectal adenocarcinoma (HCC) Ordered: 09/24/2022 [facility] Work Phone: Comment on above: Ordered: 09/24/2022 CT SIM PLANNING RADI ATION ONCOLOGY CT SIM PLANNING RADIATION ONCOLOGY Radiology Routine Rectal adenocarcinoma (HCC) Ordered: 09/24/2022 [facility] Work Phone: Comment on above: Ordered: 09/24/2022 Dermatopathology exam Dermatopat hology exam Pathology and Cytology Timed Neoplasm of unspecified behavior of bone, soft tissue, and skin Release Upon Ordering for 1 Occurrences starting 07/14/2024 [facility] Work Phone: Comment on above: Release Upon Ordering for 1 Occurrences starting 07/14/2024 End: 2023 ECG COMPLETE ECG COMPLETE ECG Routine Adenopathy 1 Occurrences starting 2022 until 2023 [facility] Work Phone: Comment on above: 1 Occurrences starting 2022 until 2023 End: 07-21-2025 Flexible sigmoidoscopy study SIGMOIDOSCOPY Endoscopy Routine Encounter for follow-up surveillance of rectal cancer 1 Occurrences starting 07/21/2024 until 07/21/2025 [facility] Work Phone: Comment on above: 1 Occurrences starting 07/21/2024 until 07/21/2025 End: 03-08-2026 Flexible sigmoidoscopy study SIGMOIDOSCOPY Endoscopy Routine Encounter for follow-up surveillance of rectal cancer 1 Occurrences starting 03/08/2025 until 03/08/2026 [facility] Work Phone: Comment on above: 1 Occurrences starting 03/08/2025 until 03/08/2026 Guidance for drainag e and placement of drainage catheter IMAGING GUIDED INJECTION DRAINAGE TUBE Radiology Routine Encounter for change or removal of drains Ordered: 09/02/2024 [facility] Work Phone: Comment on above: Ordered: 09/02/2024 Guidance for exchang e of drainage catheter for abscess IMAGING GUIDED CHANGE ABSCESS DRAIN Radiology Routine Abscess Ordered: 08/24/2024 [facility] Work Phone: Comment on above: Ordered: 08/24/2024 Guidance for exchang e of drainage catheter for abscess IMAGING GUIDED CHANGE ABSCESS DRAIN Radiology Routine Abscess Ordered: 09/04/2024 [facility] Work Phone: Comment on above: Ordered: 09/04/2024 End: 09-21-2024 Home Sleep Study [facility] Routine Sleep apnea, unspecified type 1 Occurrences starting 09/21/2024 until 09/21/2024 [facility] Comment on above: 1 Occurrences starting 09/21/2024 until 09/21/2024 Incision & drainage abscess simple/single INCISION AND DRAINAGE ABSCESS ABDOMEN SIMPLE OR SINGLE Abdominal wall abscess FV OR IR PORTOCATH PLACEMENT IR PORTOC ATH PLACEMENT Radiology Routine Rectal cancer (HCC) Ordered: 12/17/2022 [facility] Work Phone: Comment on above: Ordered: 12/17/2022 End: 04-11-2025 MR Pelvis WO contrast MRI RECTUM WO/W IVCON Radiology Routine Malignant neoplasm of rectum (HCC) 1 Occurrences starting 03/12/2024 until 04/11/2025 [facility] Work Phone: Comment on above: 1 Occurrences starting 03/12/2024 until 04/11/2025 MR Pelvis WO contrast MRI RECTUM WO/W IVCON Radiology Routine Malignant neoplasm of rectum (HCC) 06/04/2024 1:50 PM EDT [facility] Work Phone: End: 01-06-2026 MR Pelvis WO contrast MRI RECTUM WO/W IVCON Radiology Routine Malignant neoplasm of rectum (HCC) 1 Occurrences starting 12/07/2024 until 01/06/2026 [facility] Work Phone: Comment on above: 1 Occurrences starting 12/07/2024 until 01/06/2026 End: 05-12-2026 MR Pelvis WO contrast MRI RECTUM WO/W IVCON Radiology Routine Malignant neoplasm of rectum (HCC) 1 Occurrences starting 04/12/2025 until 05/12/2026 [facility] Work Phone: Comment on above: 1 Occurrences starting 04/12/2025 until 05/12/2026 End: 10-17-2023 Mri abdomen w/o & w/contrast material MRI ABDOMEN WO/W IVCON Radiology Routine Rectal cancer (HCC) 1 Occurrences starting 09/17/2022 until 10/17/2023 [facility] Work Phone: Comment on above: 1 Occurrences starting 09/17/2022 until 10/17/2023 End: 03-08-2024 Mri pelvis w/o & w/contrast material MRI RECTUM WO/W IVCON Radiology Routine Malignant neoplasm of rectum (HCC) 1 Occurrences starting 02/07/2023 until 03/08/2024 [facility] Work Phone: Comment on above: 1 Occurrences starting 02/07/2023 until 03/08/2024 End: 06-01-2024 Mri pelvis w/o & w/contrast material MRI RECTUM WO/W IVCON Radiology Routine Malignant neoplasm of rectum (HCC) 1 Occurrences starting 05/03/2023 until 06/01/2024 [facility] Work Phone: Comment on above: 1 Occurrences starting 05/03/2023 until 06/01/2024 End: 10-17-[address] attenuation skull base mid-thigh NM PET/CT SKULL-THIGH INITIAL Radiology Routine Rectal cancer (HCC) 1 Occurrences starting 09/17/2022 until 10/17/2023 [facility] Work Phone: Comment on above: 1 Occurrences starting 09/17/2022 until 10/17/2023 SARS-CoV-2 (COVID-19 ) RNA [Presence] in Respiratory specimen by MIGUE with probe detection SELF CHECK COVID Microbiology Routine Adenopathy Ordered: 2022 [facility] Work Phone: Comment on above: Ordered: 2022 End: 05-19-2025 Screening colonoscopy COLONOSCOPY SCREENING Endoscopy Routine Encounter for follow-up surveillance of rectal cancer 1 Occurrences starting 05/19/2024 until 05/19/2025 [facility] Work Phone: Comment on above: 1 Occurrences starting 05/19/2024 until 05/19/2025 End: 05-03-2024 SIGMOIDOSCOPY SIGMOIDOSCOPY Endoscopy Routine Encounter for follow-up surveillance of rectal cancer 1 Occurrences starting 05/03/2023 until 05/03/2024 [facility] Work Phone: Comment on above: 1 Occurrences starting 05/03/2023 until 05/03/2024 End: 07-24-2024 SIGMOIDOSCOPY SIGMOIDOSCOPY Endoscopy Routine Encounter for follow-up surveillance of rectal cancer 1 Occurrences starting 07/24/2023 until 07/24/2024 [facility] Work Phone: Comment on above: 1 Occurrences starting 07/24/2023 until 07/24/2024 End: 02-21-2024 US DVT LOWER LEFT US DVT LOWER LEFT Radiology Routine Leg swelling 1 Occurrences starting 01/22/2023 until 02/21/2024 [facility] Work Phone: Comment on above: 1 Occurrences starting 01/22/2023 until 02/21/2024 XR Foot - right 3 Views XR foot 3+ views right Imaging Routine Right foot pain 07/08/2024 9:17 AM EDT [facility] Work Phone: [facility] Immunizations Immunization Date Immunization Notes Care Provider Juwan mckenna 07-10-2023 COVID-19, PFIZER PURPLE top, DILUTE for use, (age 12 y+), 30mcg/0.3mL Mloz Studies [facility] 09-20-2021 COVID-19 original vaccine, age 12+ yr, monovalent (PFIZER-BIONTECH - PURPLE TOP) Minerva Anderson MD Work Phone: [facility] 09-20-2021 COVID-19 vaccine (UNSPECIFIED) Minerva Anderson MD Work Phone: [facility] 07-25-2021 influenza, high dose seasonal, preservative-free Minerva Anderson MD Work Phone: [facility] 07-25-2021 influenza virus vaccine, unspecified formulation Deborah Norman MD Work Phone: [facility] 12-23-2020 COVID-19 vaccine (UNSPECIFIED) Minerva Anderson MD Work Phone: [facility] 12-23-2020 SARS-CoV-2 (COVID-19) mRNA BNT-162b2 vax Lorenzo MARIN [facility] 12-02-2020 COVID-19 vaccine (UNSPECIFIED) Minerva Anderson MD Work Phone: [facility] 12-02-2020 SARS-CoV-2 (COVID-19) mRNA BNT-162b2 vax Lorenzo MARIN [facility] Comment on above: Result Comment: [facility] ctsiis scanned 10-21-2020 SARS-CoV-2 (COVID-19) mRNA BNT-162b2 vax Lorenzo MARIN [facility] Comment on above: Result Comment: Pt i s fully vaccinated but does not know the dates 09-24-2020 zoster vaccine recombinant Lorenzo MARIN [facility] 07-21-2020 influenza virus vaccine, unspecified formulation Corey SINGLETON [facility] 07-21-2020 influenza, high-dose, quadrivalent vaccine (FLUZONE HIGH DOSE QUADRIVALENT) Minerva Anderson MD Work Phone: [facility] 09-15-2019 pneumococcal polysaccharide vaccine, 23 valent Lorenzo MARIN [facility] 07-27-2019 influenza nasal, unspecified formulation Minerva Anderson MD Work Phone: [facility] 07-27-2019 influenza virus vaccine, unspecified formulation Lorenzo MARIN [facility] 07-14-2018 pneumococcal conjugate vaccine, 13 valent Lorenzo MARIN [facility] 10-25-2009 novel [id number], preservative-free, injectable Minerva Anderson MD Work Phone: [facility] 03-31-1997 hepatitis B vaccine, adult dosage Minerva Anderson MD Work Phone: [facility] NEGATED: Highlighted row has not occurred! 4 influenza virus vaccine, unspecified formulation Pato Peña [facility] NEGATED: Highlighted row has not occurred! 8 pneumococcal polysaccharide vaccine, 23 valent Patient Objection Valencia Webster Other [employer] Other Payers Date Payer Category Payer Self-pay 2022 Medicare [id number] 2022 Private Health Insurance [id number] 2022 Unknown [id number] 2022 Unknown [id number] 2.16.8 40.1.626005.19 2019 Unknown [id number]. 1.13.159.2.7.3.390194.315 2017 Medicare [id number]. [id number] 1959 Medicare [id number] 1959 Unknown [id number] 1952 Unknown [id number] 2.16.84 0.1.000791.3.579.2.593 1952 Unknown [id number] 2.16.84 0.1.509177.3.579.2.593 1952 Unknown [id number] 2.16.84 0.1.900077.3.579.2.593 1952 Unknown [id number] 2.16.84 0.1.908521.3.579.2.593 1952 Unknown [id number] 2.16. 840.1.252452.3.579.2.196 1952 Unknown [id number] 2.16.8 40.1.872820.3.579.2.727 1952 Unknown [id number] 2.16.8 40.1.190864.3.579.2.727 1952 Unknown [id number] 2.16.8 40.1.647917.3.579.2.727 1952 Unknown [id number] 2.16.8 40.1.285968.3.579.2.727 1952 Unknown [id number] 2.16.8 40.1.627290.3.579.2.727 1952 Unknown [id number] 2.16.8 40.1.288143.3.579.2.727 1952 Unknown [id number] 2.16. 840.1.836564.3.579.2.182 1952 Unknown [id number] 2.16. 840.1.018973.3.579.2.182 1952 Unknown [id number] 2.16. 840.1.278804.3.579.2.182 1952 Unknown [id number] 2.16.8 40.1.638413.3.579.2.182 1952 Unknown [id number] 2.16.8 40.1.815525.3.579.2.727 1952 Unknown [id number] 2.16.8 40.1.048946.3.579.2.727 1952 Unknown [id number] 2.16.8 40.1.516571.3.579.2.727 1952 Unknown [id number] 2.16.8 40.1.474959.3.579.2.727 1952 Unknown [id number] 2.16.8 40.1.818691.3.579.2.727 1952 Unknown [id number] 2.16.8 40.1.844100.3.579.2.727 1952 Unknown [id number] 2.16. 840.1.589626.3.579.2.1282 1952 Unknown [id number] 2.16.8 40.1.489999.3.579.2.1259 1952 Unknown [id number] 2.16.8 40.1.520369.3.579.2.1259 1952 Unknown [id number] 2.16.84 0.1.467821.3.579.2.1259 1952 Unknown [id number] 2.16.84 0.1.253973.3.579.2.1259 1952 Unknown [id number] 2.16.84 0.1.831121.3.579.2.1259 1952 Unknown [id number] 2.16.84 0.1.881740.3.579.2.1259 1952 Unknown [id number] 2.16.84 0.1.964315.3.579.2.1259 1952 Unknown [id number] 2.16.84 0.1.998774.3.579.2.1259 1952 Unknown [id number] 2.16.84 0.1.681715.3.579.2.1259 1952 Unknown [id number] 2.16.84 0.1.226230.3.579.2.1259 1952 Unknown [id number] 2.16.84 0.1.132264.3.579.2.1259 1952 Unknown [id number] 2.16.84 0.1.568354.3.579.2.1259 1952 Unknown [id number] 2.16.8 40.1.105966.3.579.2.727 1952 Unknown [id number] 2.16.8 40.1.323667.3.579.2.727 1952 Unknown [id number] 2.16.8 40.1.772676.3.579.2.727 1952 Unknown [id number] 2.16.8 40.1.823262.3.579.2.727 1952 Unknown [id number] 2.16.8 40.1.701419.3.579.2.727 1952 Unknown [id number] 2.16.8 40.1.761086.3.579.2.727 Unknown [facility] [id number] Unknown [id number] 2.16.8 40.1.468069.3.579.2.531 Unknown [id number] 2.16.8 40.1.995353.3.579.2.531 Unknown [id number] 2.16.8 40.1.998638.3.579.2.531 Unknown [id number] 2.16.8 40.1.384045.3.579.2.531 Social History Date Type Detail Facility Start: 07-11-2021 End: 02-15-2025 Tobacco smoking status Never smoked tobacco (finding) [facility] Start: 04-16-2013 Tobacco smoking status Never [facility] Start: 02-21-2023 End: 04-16-2023 Sex Assigned At Male [facility] Start: 08-04-2018 End: 12-25-2022 Tobacco use and exposure Smokeless tobacco non-user [facility] Start: 08-04-2018 End: 04-01-2025 Alcohol intake Current drinker of alcohol (finding) [facility] Start: 08-04-2018 Alcohol Comment rarely [facility] Start: 1950 Sex Assigned At Not on file C [facility] Start: 09-07-2022 End: 09-24-2022 Exposure to SARS-CoV-2 (event) Not sure [facility] Start: 1950 Sex Assigned At Male F [facility] Start: 02-21-2023 End: 04-16-2023 History of Social function [facility] Has the electric, gas, oil, or water company threatened to shut off services in your home in past 12Mo No [facility] (I/We) worried whether (my/our) food would run out before (I/we) got money to buy more. Never true [facility] Start: 07-10-2023 Alcohol Comment occasional [facility] Start: 10-11-2023 Alcohol Comment 2-4 times a mo nth. caffeine intake: 3 cups per day. [facility] Start: 12-14-2024 Gender identity Identifies as male gender (finding) Alexis Bittar Start: 12-14-2024 Sexual orientation Heterosexual (fin ding) [facility] [employer] Sexual Orientation [facility] Start: 02-01-2010 End: 03-18-2025 Sex Male (finding) [facility] Start: 03-31-2025 Alcohol Comment 1 beer daily [facility] NEGATED: Highlighted rowStart: DORY History of tobacco use Passive smoker [facility] Medical Equipment Procedure Code Equipment Code Equipment Origin al Text Equipment Identifier Dates -12/20/2022 [id number] Start: 12-20-2022 Comment on above: Description: [place] [facility] ; Saline only flushes Unknown Unknown [...] Assessment Result Facility 03-10-2025 Functional Status N/A [facility] 09-27-2024 Functional Status N/A [facility] 09-10-2024 Functional Status N/A [facility] 07-29-2024 Are you deaf, or do you have serious difficulty hearing No 07/29/2024 4:30 PM EDT Geni Baez RN No [facility] 07-29-2024 Are you blind, or do you have serious difficulty seeing, even when wearing glasses No 07/29/2024 4:30 PM EDT Geni Baez, ALEXUS No [facility] 07-29-2024 Do you have serious difficulty walking or climbing stairs No 07/29/2024 4:30 PM EDT Geni Baez, ALEXUS No [facility] 07-29-2024 Do you have difficul ty dressing or bathing No 07/29/2024 4:30 PM EDT Geni Baez, ALEXUS No [facility] 07-29-2024 Because of a physica l, mental, or emotional condition, do you have difficulty doing errands alone such as visiting a physician's office or shopping No 07/29/2024 4:30 PM EDT Geni Baez, ALEXUS No [facility] 07-22-2024 Functional Status N/A [facility] 02-14-2024 Functional Status N/A [facility] 01-28-2024 Functional Status No [facility] 10-09-2023 Functional Status N/A [facility] 05-07-2023 Functional Status N/A [facility] 04-29-2023 Functional Status No [facility] 03-18-2023 Functional Status N/A [facility] 01-22-2023 Functional Status No [facility] 10-24-2022 Functional Status N/A [facility] 10-03-2022 Functional Status No [facility] 08-20-2022 Functional Status N/A [facility] 08-14-2022 Functional Status N/A [facility] General Surgery [place] 05-31-2022 Functional Status N/A [facility] Medicine [place] 04-03-2022 Functional Status N/A [facility] Mental Status Date Assessment Result Facility 07-29-2024 Because of a physica l, mental, or emotional condition, do you have serious difficulty concentrating, remembering, or making decisions No 07/29/2024 4:30 PM EDT Geni Baez, ALEXUS No [facility] Clinical Notes 11-14-2019 to 07-19-2025 Telephone Encounter - Laura Slaughter RN - 06/18/2025 12:51 PM EDTTelephone Encounter - Laura Slaughter RN - 06/18/2025 12:51 PM EDTMJANINE Lomax - 04/28/2025 9:30 AM EDT Note Date & Type Note Facility 07-19-2025 Note [facility] 07-15-2025 Note [facility] 07-15-2025 Note [facility] 07-13-2025 Note HNO ID: [id number] Author: GIGI DAWSON, ALEXUS Service: Nursing Author Type: Registered Nurse [...] Home/Self Care SIGNED BY: Gigi Dawson RN [facility] 07-12-2025 Hospital Discharg e instructions Patient Education [...] Follow these instructions at home: Medicines Take wqlr-irr-pectgzz and prescription medicines only as told by [...] provider. Document Revised: 01/16/2023 Document Reviewed: 01/16/2023 [employer] Patient Education 2023 [employer]. Follow Up Care 06/24/2025 09:41:32 With:RYLEE ARRINGTON, Corey Casillas, URL Address: [address] [place] [address]- When: Unknown Comments:Appointment has already been scheduled [facility] 07-12-2025 Note Patient Education Urology Kidney Stones [...] these instructions at home: Medicines ??? Take jykr-lar-pxufymw and prescription medicines only as told by [...] pale yellow. Thi (more content not included)... [facility] 06-18-2025 Note ED Patient Education Note [...] these instructions at home: Medicines ??? Take ttbx-mhv-lcwpxsz and prescription medicines only as told by [...] urine pale yel (more content not included)... [facility] 06-18-2025 Telephone encounter Note Please sign pended labs and CT scans-FISH from Dr. Anderson Thank You! Laura Slaughter RN [facility] 06-18-2025 Miscellaneous Notes Please sign pended labs and CT scans-FISH from Dr. Anderson Thank You! Laura Slaughter RN documented in this encounter [facility] 04-28-2025 History of Presen t illness Narrative [...] 10 degrees in both supination and pronation. Application Systems Administrator strength is 5 out of 5. There is no significant palpable crepitus with elbow joint motion. Patient reports no pain in the proximal shoulder or distal bicep. Hand buckle assembler is symmetric. Bicep and triceps function without [...] requiring urgent evaluation. Visit was preformed using Hachiko-supervisor accounting clerks speech recognition. documented in this encounter [facility] 04-11-2025 Note [facility] 04-11-2025 History of Presen t illness [...] biopsy: Squamous mucosa polyp. 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 Few nonenlarged 2 to 3 mm mesorectal lymph nodes. No suspicious lymphadenopathy. 09/11/2022 CT chest, abdomen, pelvis ([facility]) Possible low-attenuation lesion right hepatic lobe [...] asymptomatic. Continue management per [facility] colorectal surgery. Minevra Anderson MD documented in this encounter [facility] 04-08-2025 Telephone encounter Note IRB# [id number]: Vascular events in patients undergoing same-day nonCardiac surgery - [facility] PI: Anika Barnes MD, LORENA, FASA. Outcomes Research Department. Anesthesia [place]. [facility]. This is a research study note. Patient [...] Carlson, Research Coordinator Research Fellow Outcomes Research [facility] 04-08-2025 Miscellaneous Notes IRB# [id number]: Vascular events in patients undergoing same-day nonCardiac surgery - [facility] PI: Anika Barnes MD, LORENA, NENA. Outcomes Research Department. Anesthesia [place]. [facility]. This is a research study note. Patient [...] The study period is now complete. Nelia Carlson Research Coordinator Research Fellow Outcomes Research [facility] documented in this encounter [facility] 03-31-2025 History of Presen t illness Narrative COLORECTAL [...] exam reveals no gross blood or masses Sweat Band Sewer present: Yes, Alysa Z Anoscopy: The patient [...] discussed with the Patient or Patient's Authorized Juvenile Counselor. As applicable, any other physician, advance practice provider, medical student, or other health professional student that will be observing or involved in the sensitive examination for educational or training purposes was discussed with the Patient or Authorized Juvenile Counselor. The Patient or Authorized Juvenile Counselor has agreed to proceed with the sensitive [...] MD Colorectal Surgery documented in this encounter [facility] 03-31-2025 Note [facility] 03-19-2025 Miscellaneous Notes Called and left [...] it turned out to be cancer. CB# [phone] documented in this encounter [facility] 03-19-2025 Telephone encounter Note Called and left message for patient. Told him he could call back to discuss his symptoms or he can make an appointment with Dr. Norman to be evaluated. Told him Dr. Norman will be back in the office on 03/31. He is scheduled for a sigmoidoscopy on 05/25. [facility] 03-18-2025 Telephone encounter Note Patient calling asking to speak to nurse about some rectal bleeding he is having. He thinks it may be hemorrhoids but he is concerned since last time he had bleeding it turned out to be cancer. CB# [phone] [facility] 03-08-2025 Note HNO ID: [id number] Author: CHELSIE KOLB RN Service: ? Author Type: Registered Nurse Type: Progress Notes Filed: 03/08/2025 10:24 Note Text: Sigmoidoscopy order [facility] 03-08-2025 History of Presen t illness Narrative Sigmoidoscopy order documented in this encounter [facility] 02-15-2025 Note Patient Education Urology Kidney Stones [...] these instructions at home: Medicines ??? Take rvwn-oyn-aqajjhz and prescription medicines only as told by [...] provider. Document Revised: 05/31/2023 Document Reviewed: 05/31/2023 [employer] Patient Education ? 2023 [employer] [facility] 01-28-2025 Note Echocardiology Procedure Exam Date/Time Accession # Ordering Echo Transthoracic 01/26/2025 11:52 EDT [id number] Pato Peña PA-C Complete CPT code 52179 [id number] Reason for Exam (Echo Transthoracic Complete) Evaluate Ejec Fraction;Other cardiomyopathies I42.8 Report [facility] [address] [place] [address] Adult Echocardiogram Report Name: MERVAT GRAYSON Study Date: 01/26/2025 11:09 AM BP: 140/88 mmHg Patient Location: [facility] Ambulatory(s) [facility] HR: 60 : 1950 Gender: Male Height: 74 in Age: 74 yrs Ethnicity: T Weight: 222 lb Reason For Study: Evaluate Ejec Fraction;Other cardiomyopathies I42.8 BSA: 2.3 m2 History: Cardiomyopathy Ordering Physician: Casey^Pato^Jarad Referring Physician: Pato Peña Performed By: Carolyn Dorado [facility] Interpretation Summary Ejection Fraction = 40-45%. [...] QLAB ED Mass (HM): 213.0 grams LAEF (): 43.0 % BSA (HM): 2.3 m2 FEDERICO (): 44.0 ml/m2 LAVmax (HM): 100.0 ml LAVmin (HM): 57.0 ml Pat Height (HM): 188.0 cm Pat Weight (HM): 100.7 kg FINAL REPORT Dictated: 01/26/2025 11:09 am Jason Galvin MD Signed (Electronic Signature): 01/28/2025 12:17 pm Signed by: Jason Galvin MD Transcribed by: [facility] Technologist: LIZETH [facility] 01-09-2025 Note [facility] 01-09-2025 History of Presen t illness [...] biopsy: Squamous mucosa polyp. 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 01/22/2023 Lower extremity Doppler ([facility]) Extensive deep venous thrombosis of the left [...] related to the thorax. 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 Few nonenlarged 2 to 3 mm mesorectal lymph nodes. No suspicious lymphadenopathy. 09/11/2022 CT chest, abdomen, pelvis ([facility]) Possible low-attenuation lesion right hepatic lobe [...] Minerva Anderson MD documented in this encounter [facility] 01-04-2025 Note HNO ID: [id number] Author: AKI MAGAÑA APRN.STEEL WOOL MACHINE OPERATOR Service: ? Author Type: Nurse Refinery Operator Crude Unit Type: Anesthesia Procedure Notes Filed: 01/04/2025 14:53 Note Text: ANESTHESIOLOGY PROCEDURE NOTE Airway General Information Procedure Start Time/Medication Administration: 01/04/2025 2:46 PM Procedure End Time: 01/04/2025 4:26 AM Patient location during procedure: OR Patient identity confirmed: arm band, care felt hat steamer and patient Staffing Anesthesiologist: Mk Lee DO STEEL WOOL MACHINE OPERATOR: Aki Magaña APRN.STEEL WOOL MACHINE OPERATOR Performed by: STEEL WOOL MACHINE OPERATOR Indications and Patient Condition Indications for airway management: anesthesia Preoxygenated: yes anesthesia circuit Patient position: sniffing Method: asleep Cricoid Pressure: No Manual In-Line Stabilization: No Final Airway Details Final airway type: supraglottic airway Number of attempts at approach: 1 Final Supraglottic Airway: i-gel Size 5 Seal Adequate: yes Airway trauma: no. Failed airway: no Airway not difficult SIGNATURE: Aki Magaña APRN.CRNA PATIENT NAME: Mervat Grayson DATE: January 04, 2025 TIME: 2:53 PM CSN: [id number] [facility] 01-04-2025 History of Presen t illness [...] PATIENT PRESENTS WITH AN 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: No ALLERGIES: Reviewed and unchanged CONTRAST ALLERGY: NO. EXAM: MRI - CONTRAST TYPE: GROUP II PERIPHERAL IV DATA: Ambulatory: A peripheral IV was started in the Right antecubital site with a Butterfly: 23 gauge. RADIOLOGY DEPARTMENT: MR; Exam(s) Completed: Body: Rectal SIGNATURE: VICTOR MANUEL Cannon Tech PATIENT NAME: Mervat Grayson DATE: January 04, 2025 TIME: 7:53 AM documented in this encounter [facility] 01-04-2025 Note HNO ID: [id number] Author: OPAL RUTHERFORD MRI Tech Service: Radiology Author Type: Regional Construction Manager Type: Progress Notes Filed: 01/04/2025 08:15 Note [...] PATIENT PRESENTS WITH AN 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: No ALLERGIES: Reviewed and unchanged CONTRAST ALLERGY: NO. EXAM: MRI - CONTRAST TYPE: GROUP II PERIPHERAL IV DATA: Ambulatory: A peripheral IV was started in the Right antecubital site with a Butterfly: 23 gauge. RADIOLOGY DEPARTMENT: MR; Exam(s) Completed: Body: Rectal SIGNATURE: VICTOR MANUEL Cannon PATIENT NAME: Mervat Grayson DATE: January 04, 2025 TIME: 7:53 AM [facility] 01-01-2025 Telephone encounter Note Summary: Appointment reminder call Appointment reminder call [facility] 01-01-2025 Miscellaneous Notes Summary: Appointment reminder call Appointment reminder call documented in this encounter [facility] 12-31-2024 Telephone encounter Note Called patient and told him/reminded him to hold his eliquis for 2 days prior to his procedure on 01/04. His last does should be Saturday. Do not take it Saturday, Saturday or Saturday. Told him to please call our office if he has any questions. [facility] 12-31-2024 Miscellaneous Notes Called patient and told him/reminded him to hold his eliquis for 2 days prior to his procedure on 01/04. His last does should be Saturday. Do not take it Saturday, Saturday or Saturday. Told him to please call our office if he has any questions. documented in this encounter [facility] 12-29-2024 Miscellaneous Notes Spoke with Dr. Norman [...] need to be done at all CB# [phone] documented in this encounter [facility] 12-29-2024 Telephone encounter Note Spoke with Dr. Norman and he is agreeable to doing PACC on admission. Called patient and explained this to patient. [facility] 12-29-2024 Telephone encounter Note Patient calling regarding surgery for 01/04. He is currently out of town and will not be back until Saturday evening. [facility] called patient to set up appt and they told him to call office to clarify if PAT will be done at admission or does not need to be done at all CB# [phone] [facility] 12-28-2024 Note [facility] 12-28-2024 History of Presen t illness Narrative COLORECTAL SURGERY December 28, 2024 Mervat Grayson 74 year old This consult was requested by Dr. Norman and my final recommendations will be communicated to the requesting health care provider by way of the shared medical record for internal providers or letter via the [employer] for external providers. Chief Complaint: RLQ nodular [...] and/or complications of treatment plan: mike Andrews APRN.GROCERY STORE BAGGER Colorectal Surgery documented in this encounter [facility] 12-25-2024 Telephone encounter Note He sounded like he would be willing to come in Thursday 12/28 as long as it was early. [facility] 12-25-2024 Miscellaneous Notes He sounded like he [...] He is concerned about a perforation CB# [phone] documented in this encounter [facility] 12-25-2024 Telephone encounter Note Spoke with patient. [...] oxycodone and zolpidem for pain and sleeping. [facility] 12-25-2024 Telephone encounter Note Patient calling asking to discuss CT and Us results. He is concerned about a perforation CB# [phone] [facility] 12-25-2024 Telephone encounter Note Pt notified and reports that his abdominal pain seems to be more pronounced. Pt plans to contact Dr Norman's office today. Dr Norman: CHAN... Denisha Duarte RN [facility] Work Phone: 12-25-2024 Miscellaneous Notes Pt notified and reports that his abdominal pain seems to be more pronounced. Pt plans to contact Dr Norman's office today. Dr Norman: CHAN... Denisha Duarte RN documented in this encounter [facility] 12-24-2024 History of Presen t illness Narrative [...] PATIENT PRESENTS WITH AN 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: No RADIOLOGY DEPARTMENT: CT; Exam(s) Completed: Chest [...] TIME: 11:15 AM documented in this encounter [facility] 12-24-2024 Note [facility] 12-24-2024 Note [facility] 12-24-2024 Telephone encounter Note Please sign pended labs for f/u on 01/11-will draw with CT today Thank You! Laura Slaughter RN [facility] 12-24-2024 Miscellaneous Notes Please sign pended labs for f/u on 01/11-will draw with CT today Thank You! Laura Slaughter RN documented in this encounter [facility] 12-06-2024 Note [facility] 12-06-2024 History of Presen t illness Narrative PATIENT NAME: Mervat Grayson DATE: 12/07/2024 PRIMARY CARE PHYSICIAN: Dr. Lorenzo Marin OTHER PHYSICIANS: Dr. Mervat Slaughter, Dr. Thalia Troy, Dr. Kiko Treadwell, Dr. Key, Dr. Micha Mccabe, Dr. Shaheed Norman, Dr. JARROD Goncalves (F ID) Portions of this encounter note have [...] no acute changes. He was seen by [facility] colorectal surgery (Dr. Norman) and on [...] biopsy: Squamous mucosa polyp. 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 Few nonenlarged 2 to 3 mm mesorectal lymph nodes. No suspicious lymphadenopathy. 09/11/2022 CT chest, abdomen, pelvis ([facility]) Possible low-attenuation lesion right hepatic lobe [...] Minerva Anderson MD documented in this encounter [facility] 11-24-2024 History and physical note ENDOSCOPY HISTORY AND PHYSICAL EXAM Mervat Dumont Nelson [id number] Subjective HPI: This is a 74 year [...] Norman MD Date: 11/24/2024 Time: 11:53 AM [facility] Work Phone: 11-24-2024 History and physical note ENDOSCOPY HISTORY AND PHYSICAL EXAM Mervat Grayson [id number] Subjective HPI: This is a 74 year [...] Time: 11:53 AM documented in this encounter [facility] 11-10-2024 Telephone encounter Note Pt aware of CT results and MM message below. Pt reports appt with Dr Norman 11/24/24 for a sigmoidoscopy. Pt denies further questions or needs at this time for our care providers Dr Norman: CHAN Thank you, Minal Corey RN [facility] 11-10-2024 Miscellaneous Notes Pt aware of CT results and MM message below. Pt reports appt with Dr Norman 11/24/24 for a sigmoidoscopy. Pt denies further questions or needs at this time for our care providers Dr Norman: CHAN Thank you, Minal Corey, RN ----- Message from Kari Diaz PA-C sent at 11/10/2024 3:41 PM EST ----- Please call with results. No evidence of hernia, mass, abscess in the RLQ. Just inflammatory changes along the surgical staple line in right colon. He should follow up with Dr. Norman. Maybe scar tissue related? Colonoscopy may also be of help documented in this encounter [facility] 11-10-2024 Telephone encounter Note ----- Message from Kari Diaz PA-C sent at 11/10/2024 3:41 PM EST ----- Please call with results. No evidence of hernia, mass, abscess in the RLQ. Just inflammatory changes along the surgical staple line in right colon. He should follow up with Dr. Norman. Maybe scar tissue related? Colonoscopy may also be of help [facility] 11-10-2024 History of Presen t illness Narrative PATIENT NAME: Mervat Grayson DATE: 11/10/2024 PRIMARY CARE PHYSICIAN: Dr. Lorenzo Marin OTHER PHYSICIANS: Dr. Mervat Slaughter, Dr. Thalia Troy, Dr. Kiko Treadwell, Dr. Key, Dr. Micha Mccabe, Dr. Shaheed Nomran, Dr. JARROD Goncalves ([facility] ID) Portions of [...] 2 weeks. He did have diarrhea between Delmy and Years, however that subsided and his bowels are [...] biopsy: Squamous mucosa polyp. 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 Few nonenlarged 2 to 3 mm mesorectal lymph nodes. No suspicious lymphadenopathy. 09/11/2022 CT chest, abdomen, pelvis ([facility]) Possible low-attenuation lesion right hepatic lobe [...] which included preparing to see the patient, jsda-zj-lgws patient care, completing clinical documentation, performing a medically appropriate examination, counseling and educating the patient/family/caregiver, ordering medications, tests, or procedures, independently interpreting results (not separately reported), communicating results to the patient/family/caregiver, and care coordination (not separately reported). documented in this encounter [facility] 11-10-2024 Note [facility] 11-10-2024 History of Presen t illness [...] PATIENT PRESENTS WITH AN 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: No RADIOLOGY DEPARTMENT: CT; Exam(s) Completed: Abdomen/Pelvis PERIPHERAL IV DATA: Not applicable SIGNED BY: RT Johny(R) November 10, 2024 11:31 AM POWER port scannned 12/20/2022-VELIA documented in this encounter [facility] 11-10-2024 Note [facility] 11-06-2024 Telephone encounter Note Pt notified and verbalizes understanding. Denisha Duarte RN [facility] Work Phone: 11-06-2024 Miscellaneous Notes Pt notified [...] of activity. Describes his stools as normal. front desk receptionist scheduled pt to see Kari on Saturday [...] Denisha Duarte RN documented in this encounter [facility] 11-05-2024 Telephone encounter Note Agree, hernia quite likely. If it appears to be a hernia on clinical exam we can then refer to surgery. [facility] 11-05-2024 Telephone encounter Note Spoke w/ patient who reports swelling in his right lower abdomen. States the area has tripled in size over the last 2 weeks. Notes pain w/ movement and stretching. Denies any heavy lifting or any change in level of activity. Describes his stools as normal. front desk receptionist scheduled pt to see Kari on Saturday prior to this phone call. Informed pt it could be a hernia he's describing and that he may need to see the surgeon if so. What are your thoughts? Denisha Duarte RN [facility] 11-05-2024 Telephone encounter Note Patient coming in Saturday11/10/24 for follow up. Please add lab orders. Thanks. Orin Kolb MA [facility] 11-05-2024 Miscellaneous Notes Patient coming in Saturday11/10/24 for follow up. Please add lab orders. Thanks. Orin Kolb MA documented in this encounter [facility] 11-05-[address] Anderson received a voicemail from pt w/ c/o abdominal pain. Call placed to pt for further assessment. No answer. Message left requesting call back. Denisha Duarte RN [facility] 10-23-2024 Telephone encounter Note Patient calling asking about C-diff results. They are scanned into chart CB# [phone] [facility] 10-23-2024 Miscellaneous Notes Patient calling asking about C-diff results. They are scanned into chart CB# [phone] documented in this encounter [facility] 10-19-2024 Telephone encounter Note Returned call. He reports he is continuing to have diarrhea which began on 10/15. Dr. Werner ordered a c diff test on 10/17 but patient has not had it done because he needs it sent to [facility]. Called [facility] and was given [phone] as the fax number to send the lab order to. [facility] 10-19-2024 Miscellaneous Notes Returned call. He reports he is continuing to have diarrhea which began on 10/15. Dr. Werner ordered a c diff test on 10/17 but patient has not had it done because he needs it sent to [facility]. Called [facility] and was given [phone] as the fax number to send the lab order to. Patient called with concerns of diarrhea and nausea and vomiting at present return call to [phone] documented in this encounter [facility] 10-19-2024 Telephone encounter Note Patient called with concerns of diarrhea and nausea and vomiting at present return call to [phone] [facility] Work Phone: 09-27-2024 Hospital Discharg e instructions [...] Follow these instructions at home: Medicines Take nvvu-abh-kjpldqb and prescription medicines only as told by [...] provider. Document Revised: 07/24/2023 Document Reviewed: 07/24/2023 [employer] Patient Education 2023 [employer]. Follow Up Care 09/27/2024 11:28:00 With:Your surgeon Address:Unknown When:09/30/2024 18:06:37 Comments:Call the office tomorrow to arrange for follow-up care [facility] 09-27-2024 Note ED Patient Education Note Gastroenterology [...] these instructions at home: Medicines ??? Take enzk-srk-ujamtww and prescription medicines only as told by [...] provider. Document Revised: 07/24/2023 Document Reviewed: 07/24/2023 [employer] Patient Education ? 2023 [employer]. [facility] 09-27-2024 Evaluation + Plan note Extrac swati from: Title:ED Note Author:Micky Cueto DO Date:1 11/28/23 Abdominal pain (R10.9: Unspe cified abdominal pain) Orders: Basic Metabolic Panel CBC w/ Auto Diff CT Abdomen/Pelvis w/ Contrast eGFR Extra Blue Tube Extra SST Tube Hepatic Function Panel UA with Cult Rflx Future Appointments Appointment Date:02/15/2025 08:45:00 AM Scheduled Provider:Corey SINGLETON MD Location:[facility] Appointment Type:URO Office Visit Appointment Date:03/10/2025 08:00:00 AM Scheduled Provider:Pato Peña PA-C [facility]:Cardiology Follow Up (FT) Future Scheduled Tests Laboratory* B-Type Natriuretic Peptide 11/01/23 * Basic Metabolic Panel 11/01/23 Radiology* Echo Transthoracic Complete 01/10/25 [facility] [id number] [facility] History of Present illness Narrative* Dayanara Sullivan APRN.GROCERY STORE BAGGER - 09/16/2024 4:39 PM EST COLORECTAL SURGERY [...] Sullivan APRN.ARACELY Colorectal Surgery [facility] Telephone encounter Note * Telephone Encounter - Chelsie Kolb RN - 09/15/2024 9:23 AM EST See previous phone encounter [facility]11-26-2024 Miscellaneous Notes* Telephone Encounter - Chelsie Kolb RN - 09/15/2024 9:23 AM EST See previous phone encounter * Telephone Encounter - Kraig Herring - 09/15/2024 9:03 AM EST Pt calling to speak to nurse, regarding getting tube out of stomach and if there is any updates. CB#: [phone] documented in [facility] encounterL[facility]11-[facility]24 Telephone encounter Note * Telephone Encounter - Kraig Herring - 09/15/2024 9:03 AM EST Pt calling to speak to nurse, regarding getting tube out of stomach and if there is any updates. CB#: [phone] [facility]11-25-2024 Telephone encounter Note* Telephone Encounter - [...] is wondering what this could be from. [facility]11-25-2024 Miscellaneous Notes* Telephone Encounter - Chelsie [...] burning sensation. Patient can be reached at [phone]. Thank you documented in this encounterL[facility]11-[facility]-2024 Telephone encounter Note * Telephone Encounter - [...] burning sensation. Patient can be reached at [phone]. Thank you [facility]11-19-2024 NoteHNO ID: [id number] Author: HARVINDER HARRELL RN Service: Nursing Author Type: Registered Nurse Type: Nursing Progress Note Filed: 09/08/2024 13:44 Note Text: Pt given apple juice and saltines. [id number] Tele[facility] encounter Note* Telephone Encounter - Jaclyn Ramírez RN - 09/07/2024 12:40 PM EST You are scheduled for a Drain Exchange, On 09/08/2024. You are to arrive at 12:00pm and Report to [facility]: [facility]: Radiology Outpatient Desk [id number] You can expect to be here for [...] Labs: Lab-work needs to be drawn? No.. Car Dealer/Transportation: How will you be arriving for your procedure? Private car. You will need a responsible adult to accompany you to and from the procedure. Your water truck driver is required to stay with you until you are taken into the procedure room. Please call [phone] if you have any questions [facility]11-18-2024 Miscellaneous Notes* Telephone Encounter - Jaclyn Ramírez RN - 09/07/2024 12:40 PM EST You are scheduled for a Drain Exchange, On 09/08/2024. You are to arrive at 12:00pm and Report to [facility]: [facility]: Radiology Outpatient Desk [id number] You can expect to be here for [...] Labs: Lab-work needs to be drawn? No.. Car Dealer/Transportation: How will you be arriving for your procedure? Private car. You will need a responsible adult to accompany you to and from the procedure. Your water truck driver is required to stay with you until you are taken into the procedure room. Please call [phone] if you have any questions documented in this encounterLake[facility]11-18-2024 [facility] History of Present illness Narrative* Minerva [...] biopsy: Squamous mucosa polyp. 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 Few nonenlarged 2 to 3 mm mesorectal lymph nodes. No suspicious lymphadenopathy. 09/11/2022 CT chest, abdomen, pelvis ([facility]) Possible low-attenuation lesion right hepatic lobe [...] surgery/ID. Minerva Anderson MD documented in this encounterLake[facility]11-15-2024 Telephone encounter Note * Telephone Encounter - Harvinder Harrell RN - 09/04/2024 1:16 PM EST Called pt to provide pre-procedure instructions. Unidentified voicemail received. Left call back number for pt. [facility]11-15-2024 Miscellaneous Notes* Telephone Encounter - Harvinder Harrell RN - 09/04/2024 1:16 PM EST Called pt to provide pre-procedure instructions. Unidentified voicemail received. Left call back number for pt. documented in this encounterLakehealth [facility] Center11-15-2024 NoteIMPRESSION: RESOLUTION OF THE MAJORITY OF THE [...] BE REPOSITIONED INTO THE DEEP PELVIC COLLECTION. 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SHARON Transcribe Date/Time: Sep 04 2024 11:53A Dictated by : NISHI MATOS RPA This examination was interpreted and the report reviewed and electronically signed by: OSIRIS ESCOBAR MD on Sep 04 2024 12:29PM EST [facility] [id number] History of Present illness Narrative* Ashley Angeles RT(R) - 09/04/2024 10:15 AM EST Radiology Service [...] PATIENT PRESENTS WITH AN 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: No RADIOLOGY DEPARTMENT: General X-ray: Exam(s) Completed: GI/ Procedure(s): Tube Injection with water soluable contrast PERIPHERAL IV DATA: Not applicable SIGNED BY: RT Jose(R) September 04, 2024 11:03 AM documented in this encounterLakehealth [facility] Center11-15-2024 NoteHNO ID: [id number] Author: ASHLEY ANGELES RT(R) Service: ? Author Type: Technologist Type: Progress [...] PATIENT PRESENTS WITH AN 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: No RADIOLOGY DEPARTMENT: General X-ray: Exam(s) Completed: GI/ Procedure(s): Tube Injection with water soluable contrast PERIPHERAL IV DATA: Not applicable SIGNED BY: RT Jose(R) September 04, 2024 11:03 [facility]11-13-2024 Telephone encounter Note* Telephone Encounter - Chelsie Kolb RN - 09/02/2024 11:[address] Norman, the drain should stay in place but he will order an IR drain study in [address] Norman (or Lizette Sullivan) will see him in the office. [facility]11-13-2024 Miscellaneous Notes* Telephone Encounter - Chelsie Kolb RN - 09/02/2024 11:[address] Norman, the drain should stay in place but he will order an IR drain study in [address] Norman (or Lizette Sullivan) will see him in the office. * Telephone Encounter - Clarissa Pena - 08/28/2024 4:08 PM EST [facility] calling to update about drain output. He recently had drain replaced and since only 5cc of output. They are asking if he still needs to the drain Raoul. CB# [phone] documented in this encounterLake[facility]11-08-2024 Telephone encounter Note * Telephone Encounter - Rashmi Lerner - 08/28/2024 4:23 PM EST Appointments cancelled. Rashmi Lerner [facility]11-08-2024 Miscellaneous Notes* Telephone Encounter - Rashmi Lerner - 08/28/2024 4:23 PM EST Appointments cancelled. Rashmi Lerner * Telephone Encounter - Mariluz Kolb RN - 08/28/2024 4:06 PM EST Raoul RN from [facility] called asking if patient still need to [...] Thanks Caesar Kolb RN documented in this encounterLake[facility]11-08-2024 Telephone encounter Note * Telephone Encounter - Clarissa Pena - 08/28/2024 4:08 PM EST [facility] calling to update about drain output. He recently had drain replaced and since only 5cc of output. They are asking if he still needs to the drain Raoul. CB# [phone] [facility]11-08-2024 Telephone encounter Note* Telephone Encounter - Mariluz Kolb RN - 08/28/2024 4:06 PM EST Raoul RN from [facility] called asking if patient still need [...] here on 09/03/24. Thanks Caesar Kolb RN [facility]11-07-2024 Telephone encounter Note* Telephone Encounter - Gloria Gray - 08/27/2024 10:47 AM EST Patient is rescheduled for 09/08/24 at 9:[address] Justin Gray PSS [facility]11-07-2024 Miscellaneous Notes* Telephone Encounter - Gloria Gray - 08/27/2024 10:47 AM EST Patient is rescheduled for 09/08/24 at 9:[address] Justin Gray PSS * Telephone Encounter - Denisha Duarte RN - 08/27/2024 10:35 AM EST Clerical: Please cancel pt's appointment on Saturday, 09/01 and reschedule it for the following week. Thanks! Denisha Duarte RN documented in this encounterLakehealth [facility] Center11-07-2024 Telephone encounter Note * Telephone Encounter - Denisha Duarte RN - 08/27/2024 10:35 AM EST Clerical: Please cancel pt's appointment on Saturday, 09/01 and reschedule it for the following week. Thanks! Denisha Duarte RN [facility] Work Phone: [phone]) 925-529311-05-2024 NoteHNO ID: [id number] Author: RAOUL COON APRN.GROCERY STORE BAGGER Service: Interventional Radiology Author Type: Nurse Practitioner [...] gentle traction, gauze dressing applied. Raoul Coon APRN.GROCERY STORE BAGGER 08/25/24[id number] NoteHNO ID: [id number] Author: BRI RIVERA RN Service: ? Author Type: Registered Nurse Type: Nursing Progress Note Filed: 08/25/2024 15:05 Note Text: Tatum Pereira RT removed left lower quadrant abdominal drain prior to discharging patient home.[facility] HospitalFweqraji22-04-0179 NoteHNO ID: [id number] Author: BRI RIVERA RN Service: ? Author Type: Registered Nurse Type: Nursing Progress Note Filed: 08/25/2024 14:12 Note Text: Tatum Pereira RT came and assessed left abdominal RADHA drain. Exchanged parts of RADHA tubing set up.[facility] [id number] History of Present illness Narrative * Ashia Hussein, RT(R) - 08/25/2024 10:15 AM EST Radiology [...] PATIENT PRESENTS WITH AN 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: No RADIOLOGY DEPARTMENT: CT; Exam(s) Completed: Abdomen/Pelvis PERIPHERAL IV DATA: Site assessment: Clean,Dry and Intact, Site disposition Left in for next appointment SIGNED BY: RT Saul(R) August 25, 2024 10:35 AM documented in this encounterLakehealth [facility]point [facility] Center11-05-2024 NoteHNO ID: [id number] Author: ASHIA HUSSEIN RT(R) Service: Radiology Author Type: Regional Construction Manager Type: Progress Notes Filed: 08/25/2024 10:36 Note [...] PATIENT PRESENTS WITH AN 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: No RADIOLOGY DEPARTMENT: CT; Exam(s) Completed: Abdomen/Pelvis PERIPHERAL IV DATA: Site assessment: Clean,Dry and Intact, Site disposition Left in for next appointment SIGNED BY: RT Saul(R) August 25, 2024 10:35 AMBe[facility] [id number] Nurse Note* Harvinder Harrell RN - 08/25/2024 [...] August 25, 2024 TIME: 9:43 AM \ [facility]11-05-2024 Nurse Note* Harvinder Harrell RN - 08/25/2024 [...] TIME: 9:43 AM \ documented in this encounterLakehealth [facility]11-04-2024 Telephone encounter Note * Telephone Encounter - Estrella Mcmillan RN - 08/24/2024 3:07 PM EST You are scheduled for a abscess drainage catheter exchange, On 08/25/2024. You are to arrive at 9 15 am and Report to [facility]: [facility]: Radiology Outpatient Desk [id number] Diet: Do not [...] Labs: Lab-work needs to be drawn? No.. Car Dealer/Transportation: How will you be arriving for your procedure? Private car. You will need a responsible adult to accompany you to and from the procedure. Your water truck driver is required to stay with you until you are taken into the procedure room. Call [phone] for questions [facility]11-04-2024 Miscellaneous Notes* Telephone Encounter - Estrella Mcmillan RN - 08/24/2024 3:07 PM EST You are scheduled for a abscess drainage catheter exchange, On 08/25/2024. You are to arrive at 9 15 am and Report to [facility]: [facility]: Radiology Outpatient Desk [id number] Diet: Do not [...] Labs: Lab-work needs to be drawn? No.. Car Dealer/Transportation: How will you be arriving for your procedure? Private car. You will need a responsible adult to accompany you to and from the procedure. Your water truck driver is required to stay with you until you are taken into the procedure room. Call [phone] for questions documented in this encounterLakehealth [facility]11-04-2024 Miscellaneous Notes* Telephone Encounter - Chelsie Kolb [...] like an update on what's going on. CB#: [phone] * Telephone Encounter - Chelsie Kolb RN - 08/24/2024 9:48 AM EST Based on message from Dr. Norman this weekend which states that Michael's IR drain is broken and malfunctioning and needs to be replaced, I called and left a message for IR and provided them with patient's name, MRN and phone number along with my phone number. documented in this encounterLakehealth [facility] Center11-04-2024 Telephone encounter Note * Telephone Encounter - [...] let him know when I hear anything. [facility]11-04-2024 Telephone encounter Note* Telephone Encounter - Valencia Cadena - 08/24/2024 10:24 AM ESTSummary: scheduling Sent message to Dr. Escobar. Need order [facility]11-04-2024 Telephone encounter Note* Telephone Encounter - Kraig Herring - 08/24/2024 9:58 AM EST Patient seeking update. Has questions about Cat scan and if he needs it done. I informed pt that IRshould be giving the nurse a call back and or give him a call. He would like an update on what's going on. #: [phone] [facility]11-04-2024 Telephone encounter Note* Telephone Encounter - Chelsie Kolb RN - 08/24/2024 9:48 AM EST Based on message from Dr. Norman this weekend which states that Michael's IR drain is broken and malfunctioning and needs to be replaced, I called and left a message for IR and provided them with patient's name, MRN and phone number along with my phone number. [facility]10-30-2024 Telephone encounter Note* Telephone Encounter - Minal Corey RN - 08/19/2024 9:31 AM EDT [facility] Rn called to inquire on labs needing completed for BRM OV 09/01/24. Labs faxed to complete in pt home week of 08/24/24. Lab appt 08/25/24 canceled. RN will fax results for BRM appt Minal Corey RN [facility]10-30-2024 Miscellaneous Notes* Telephone Encounter - Minal Corey RN - 08/19/2024 9:31 AM EDT [facility] Rn called to inquire on labs needing completed for BRM OV 09/01/24. Labs faxed to complete in pt home week of 08/24/24. Lab appt 08/25/24 canceled. RN will fax results for BRM appt Minal Corey RN documented in this encounterLakehealth [facility]point [facility] Center10-29-2024 NoteHNO ID: [id number] Author: SANDRINE DOS SANTOS LSW Service: Care Management Author Type: Ui Engineer Type: Care Mgt Progress Note Filed: 08/18/2024 14:39 Note Text: CARE MANAGEMENT DISCHARGE NOTE SERVICE DATE: August 18, 2024 SERVICE TIME: 11:30 Admission Date: 08/14/2024 LOS: 4 days Discharge Arrangement Discharge Arrangement: Home with Home Health Services Arranged Medical Services: Skilled Home Health Care Type: Home Health Agency, Physical Therapy, Occupational Therapy Provider Name: [facility] Marcial Oreilly Caregiver Assessment Caregiver is ready, willing and able to meet the patient's needs as recommended by the inter-professional team: Yes Name of Caregiver: Transportation Arrangements Transportation Arrangements: Car Handoff Communication: Handoff to: Primary Care Physician Primary Care Physician Name/Phone: Lorenzo Marin DO [phone] Additional Information: Delivery today and SOC around 6pm Discharge Information Row Name ED to Hosp-Admission (Current) from 08/14/[address] [facility] Phone/ SIGNATURE: DAI Roberts PATIENT NAME: Mervat Grayson DATE: August 18, 2024 TIME: 2:38 PM CONTACT #: [phone] NoteHNO ID: [id number] Author: DARELL SANTIAGO MD Service: Colorectal Author Type: Resident Type: Progress Notes Filed: 08/18/2024 10:20 Note Text: Colorectal Surgery Progress Note Name: Mervat Grayson [facility] Date: 08/18/2024 ASSESSMENT AND PLAN 73 Y/O [...] MD General Surgery Resident Blue Team Pager: [phone] General Surgery Colorectal Surgery On-Call Pager: [phone] Subjective No acute events overnight AF HDS on RA Pain: Controlled Tolerating regular diet - N/V: No Bowel function: Yes Ambulating: Yes Objective Vital Signs BP 121/77 Pulse 70 Temp 36.9 ?C (98.4 ?F) (Oral) Resp 12 Ht 188 cm (6' 2 ) Wt 108.3 kg (238 lb 12.1 oz) SpO2 96% BMI 30.65 kg/m? Input and Output Date 08/14/24699 - 08/15/2465808/15/24699 - 08/16/24 0659 Shift 6689-5821 0792-1341 0290-2902 24 Hour Total 4783-5908 9155-6108 4777-4078 24 Hour Total INTAKE PO 60 60 PO 60 60 Blood Products 352 352 Infusion Complete Volume (mL) (RBC Transfusion Instruction) 352 352 Shift Total 60 352 412 OUTPUT Urine 250 675 925 Void (ml) 250 675 925 Emesis 0 0 Emesis (ml) 0 0 Tubes 25 30 55 Drain/Tube Output (Drain/Tube 08/14/24 5363 [facility] Pelvic Drain Left Anterior Pelvis Drain #1) [...] Abscess and Wound Culture with Gram Stain [[id number]] (Abnormal) Collected: 08/14/24 172 Order Status: Completed Specimen: Drainage/Purulent/Non-sterile Fluid from Wound (specify location in comments) Updated: 08/17/24 1151 Culture, Wound Many Escherichia coli Comment: Refer to specimen collected on 08/14/2024 at 1703 ([id number]) Moderate Klebsiella pneumoniae Comment: Refer to specimen collected on 08/14/2024 at 1703 ([id number]) Few Enterococcus faecalis Comment: No susceptibility testing done. Call lab within 72 hours to initiate work-up if clinically indicated. Cephalosporins, clindamycin, and TMP-SMX are not effective for the treatment of enterococcal infections. Gram Stain Rare Gram positive cocci Rare Gram negative bacilli Rare Gram positive bacilli No Polymorphonuclear Leukocytes Narrative: This test was developed and its performance characteristics determined by the [facility]'s [facility] [place] ([facility]). It has not been cleared or approved by the FDA. RT-[facility] is regulated under CLIA as qualified to perform high-complexity testing. This test is used for clinical purposes. It should not be regarded as investigational or for research. Abscess and Wound Culture with Gram Stain [[id number]] (Abnormal) (Susceptibility) Collected: 08/14/24 170 Order Status: Completed Specimen: Drainage/Purulent/Non-sterile F (more content not included)...[facility] HospitalJvaxwvry20-79-1624 NoteHNO ID: [id number] Author: RAOUL REAGAN RN Service: Care Management Author Type: Registered Nurse Type: Care Mgt Progress Note Filed: 08/17/2024 17:06 Note Text: CARE MANAGEMENT PROGRESS NOTE SERVICE DATE: 08/17/2024 SERVICE TIME: 1705 LOS: 3 days Needs Prior to Discharge: To Be Determined [facility] pharmacy accepted for [facility]. Rx sent to agency and anticipate delivery tomorrow. Awaiting final confirmation from [facility] on SOC tomorrow around 1800. [facility] still reviewing, other [facility] referrals declined d/t staff or out of service area. SIGNATURE: Raoul Reagan RN PATIENT NAME: Mervat Grayson DATE: August 17, 2024 TIME: 5:05 PM PAGER/CONTACT #: [phone] NoteHNO ID: [id number] Author: RAOUL REAGAN RN Service: Care Management Author Type: Registered Nurse Type: Care Mgt Initial Assessment Filed: 08/17/2024 15:24 Note Text: CARE MANAGEMENT: ASSESSMENT AND DISCHARGE PLAN SERVICE DATE: August 17, 2024 SERVICE TIME: 1500 PCP: Lorenzo Marin DO Primary Contact: Extended Emergency Contact Information Primary Emergency Contact: Mini Grayson Mobile Relation: Spouse Secondary Emergency Contact: Fabricio Bose Address: [facility] [address] [place] [address] Mobile Relation: Daughter Admission Status: Inpatient Insurance [...] Patient Goal(s): Be able to go home Britt of Choice Explained: Britt of Choice Given: Yes Level of Care [...] sent on patient behalf. Patient lives in [place]. Spouse will provide DC transport home when [...] AND PROVIDER: 09/01 with hematology DISCHARGE PLAN: HHC/HHC pharmacy SIGNATURE: Raoul Reagan RN PATIENT NAME: Mervat Grayson DATE: August 17, 2024 TIME: 3:14 PM CONTACT #: [id number] NoteHNO ID: [id number] Author: DARELL SANTIAGO MD Service: Colorectal Author Type: Resident Type: Progress Notes Filed: 08/17/2024 11:40 Note Text: Colorectal Surgery Progress Note Name: Mervat Grayson [facility][id number]-93 Date: 08/17/2024 ASSESSMENT AND PLAN 73 Y/O [...] MD General Surgery Resident Blue Team Pager: [phone] General Surgery Colorectal Surgery On-Call Pager: [phone] Subjective No acute events overnight AF HDS [...] 0659 08/15/24 0700 - 08/16/24 0659 Shift 1535-7773 7118-9081 2408-6278 24 Hour Total 7954-1633 6171-3569 2306-4028 24 Hour Total INTAKE PO 60 60 PO 60 60 Blood Products 352 352 Infusion Complete Volume (mL) (RBC Transfusion Instruction) 352 352 Shift Total 60 352 412 OUTPUT Urine 250 675 925 Void (ml) 250 675 925 Emesis 0 0 Emesis (ml) 0 0 Tubes 25 30 55 Drain/Tube Output (Drain/Tube 08/14/24 1733 [facility] Pelvic Drain Left Anterior Pelvis Drain #1) [...] Abscess and Wound Culture with Gram Stain [[id number]] (Abnormal) Collected: 08/14/24 172 Order Status: Completed Specimen: Drainage/Purulent/Non-sterile Fluid from Wound (specify location in comments) Updated: 08/16/24 1539 Culture, Wound Many Escherichia coli Comment: Refer to specimen collected on 08/14/2024 at 1703 ([id number]) Few Klebsiella pneumoniae Gram Stain Rare Gram positive cocci Rare Gram negative bacilli Rare Gram positive bacilli No Polymorphonuclear Leukocytes Narrative: This test was developed and its performance characteristics determined by the [facility]'s [facility] [place] ([facility]). It has not been cleared or approved by the FDA. -[facility] is regulated under CLIA as qualified to perform high-complexity testing. This test is used for clinical purposes. It should not be regarded as investigational or for research. Abscess and Wound Culture with Gram Stain [[id number]] (Abnormal) (Susceptibility) Collected: 08/14/24 1703 Order Status: Completed Specimen: Drainage/Purulent/Non-sterile Fluid from Wound (specify location in comments) Updated: 08/17/24 0804 Culture, Wound Many Escherichia coli Few Klebsiella pneumoniae Comment: Susceptibility results to follow. Gram Stain Few Gram negative bacilli Rare Gram positive cocci Rare Gram positive b (more content not included)...[facility] HospitalLelmljkt46-72-8271 NoteHNO ID: [id number] Author: RAYA PIERCE MD Service: Colorectal Author Type: Resident Type: Progress Notes Filed: 08/16/2024 08:35 Note Text: Colorectal Surgery Progress Note Name: Mervat Grayson Bed: F[facility]-PK3B21/FV-[id number]-07 Date: 08/16/2024 ASSESSMENT AND PLAN Mervat Grayson [...] MD General Surgery Resident Blue Team Pager: [phone] General Surgery Colorectal Surgery On-Call Pager: [phone] Patient discussed with staff Subjective No acute events overnight HDS Pain: Controlled N/V: No Bowel function: Yes Ambulating: Yes Objective Vital Signs BP 133/85 Pulse 72 Temp 36.7 ?C (98.1 ?F) (Oral) Resp 18 Ht 188 cm (6' 2 ) Wt 108.3 kg (238 lb 12.1 oz) SpO2 97% BMI 30.65 kg/m? Input and Output Date 08/14/24699 - 08/15/2465808/15/24699 - 08/16/24 0659 Shift 0871-7199 5391-5806 8569-9621 24 Hour Total 5134-8719 5019-4375 7551-4087 24 Hour Total INTAKE PO 60 60 PO 60 60 Blood Products 352 352 Infusion Complete Volume (mL) (RBC Transfusion Instruction) 352 352 Shift Total 60 352 412 OUTPUT Urine 250 675 925 Void (ml) 250 675 925 Emesis 0 0 Emesis (ml) 0 0 Tubes 25 30 55 Drain/Tube Output (Drain/Tube 08/14/24 1733 [facility] Pelvic Drain Left Anterior Pelvis Drain #1) [...] Abscess and Wound Culture with Gram Stain [[id number]] (Abnormal) Collected: 08/14/241728 Order Status: Completed Specimen: Drainage/Purulent/Non-sterile Fluid from Wound (specify location in comments) Updated: 08/15/24 033 Gram Stain Rare Gram positive cocci Rare Gram negative bacilli Rare Gram positive bacilli No Polymorphonuclear Leukocytes Abscess and Wound Culture with Gram Stain [[id number]] (Abnormal) Collected: 08/14/24 1703 Order Status: Completed Specimen: Drainage/Purulent/Non-sterile Fluid from [...] 3.5* 3.4* CHLOR 103 103 100 CO2 BUN 12 12 12 CREAT 1.05 1.00 0.87 GLUC 103* 92 83 MG 2.0 2.0 -- Recent Labs 08/14/24 1815 APTT 29.2 INR 1.2 Imaging ReviewedLongwood HospitalKyyqucee19-34-8881 NoteHNO ID: [id number] Author: ANNA BARRON MD Service: Colorectal Author Type: Resident Type: Progress Notes Filed: 08/15/2024 08:41 Note Text: Colorectal Surgery Progress Note Name: Mervat Grayson Bed: FV-PK3B21/FV-[id number]-77 Date: 08/15/2024 ASSESSMENT AND PLAN Mervat Grayson [...] Pager (Weekdays 6 AM - 6 PM): [phone] For Nights and Weekends, please page the On-call Surgery pager: [phone] Patient discussed with staff Subjective No acute [...] 0659 08/15/24 07 - 08/16/24 0659 Shift 8926-4157 8427-5919 0057-4397 24 Hour Total 9324-5467 3449-4872 4801-1158 24 Hour Total INTAKE PO 60 60 PO 60 60 Blood Products 352 352 Infusion Complete Volume (mL) (RBC Transfusion Instruction) 352 352 Shift Total 60 352 412 OUTPUT Urine 250 675 925 Void (ml) 250 675 925 Emesis 0 0 Emesis (ml) 0 0 Tubes 25 30 55 Drain/Tube Output (Drain/Tube 08/14/24 1733 [facility] Pelvic Drain Left Anterior Pelvis Drain #1) [...] Abscess and Wound Culture with Gram Stain [[id number]] (Abnormal) Collected: 08/14/241728 Order Status: Completed Specimen: Drainage/Purulent/Non-sterile Fluid from Wound (specify location in comments) Updated: 08/15/24 033 Gram Stain Rare Gram positive cocci Rare Gram negative bacilli Rare Gram positive bacilli No Polymorphonuclear Leukocytes Abscess and Wound Culture with Gram Stain [[id number]] (Abnormal) Collected: 08/14/24 170 Order Status: Completed [...] MG 2.0 -- -- Recent Labs 08/14/24 1815 APTT 29.2 INR 1.2 Imaging ReviewedLongwood HospitalEcplfgvw79-76-8696 History of Present illness Narrative* Radha Niño [...] PATIENT PRESENTS WITH AN 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: No RADIOLOGY DEPARTMENT: CT; Exam(s) Completed: Abdomen/Pelvis PERIPHERAL IV DATA: Site assessment: Clean,Dry and Intact, Site disposition Discontinued port injection by Radha Niño RN SIGNED BY: RT Lloyd(R) August 13, 2024 3:24 PM documented in this encounterL[facility]10-24-2024 NoteC[facility]10-24-2024 NoteCrystal Clinic [facility] Center10-24-2024 Nurse Note* Natividad Alvares OCCA - [...] clean & dry Temperature: No Drains: No [facility]10-24-2024 History of Present illness Narrative* Celeste Andrews APRN.ARACELY - 08/13/2024 12:40 PM EDT COLORECTAL SURGERY August 13, 2024 Mervat Grayson 73 year old This consult was requested by Dr. Norman and my final recommendations will be communicated to the requesting health care provider by way of the shared medical record for internal providers or letter via the [employer] for external providers. Chief Complaint: [...] scan results and recommended to [facility] for [facility] and IV [facility]. [...] Andrews APRN.CNP Colorectal Surgery documented in this encounterLakehealth [facility] Center10-24-2024 NoteCrystal Clinic Orthopedic Center10-24-2024 Nurse Note* Natividad Alvares OCCA - [...] Temperature: No Drains: No documented in this encounterLakehealth [facility] Center10-17-2024 Telephone encounter Note * Telephone Encounter - Chelsie Kolb RN - 08/06/2024 3:18 PM EDT Called and spoke with patient. He reports he was getting a sharp pain after eating. He saw his PCP on 08/04 and discussed with him getting oxygen to wear at night, getting HHC set up through [employer] [facility] [employer] and possibly getting a prednisone dose pack [...] this does not produce a bowel movement. [facility]10-17-2024 Miscellaneous Notes* Telephone Encounter - Chelsie Kolb RN - 08/06/2024 3:18 PM EDT Called and spoke with patient. He reports he was getting a sharp pain after eating. 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 Pt states he had surgery and is feeling shortness of breath. Based on the chart, pt had surgery w/ Dr. Norman 07/22/2024. Attempted to call the patient. No answer. Left a detailed message. Advised him to go to the ER given SOB. Dr. Norman, please have your team follow up. 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 Pt states he had surgery and is feeling shortness of breath. Based on the chart, pt had surgery w/ Dr. Norman 07/22/2024. Attempted to call the patient. No answer. Left a detailed message. Advised him to go to the ER given SOB. Dr. Norman, please have your team follow up. Thank you, Raymond Casas RN [facility]10-15-2024 Telephone encounter Note* Telephone Encounter - Hoa [...] at this time. Thank you. Hoa Woodson [facility]10-15-2024 Miscellaneous Notes* Telephone Encounter - Hoa Patel [...] Thank you. Hoa Woodson documented in this encounterLakehealth [facility] Center10-10-2024 Telephone encounter Note * Telephone Encounter - Toshia Buenrostro - 07/30/2024 1:[address] scan, labs, and BRM appointments on 08/04/2024. Spoke to patient & rescheduled on 08/25/2024@8:15 am, BRM on 09/01/2024@10 am moved out a month. Toshia Buenrostro [facility]10-10-2024 Miscellaneous Notes* Telephone Encounter - Toshia Buenrostro [...] Thanks! Denisha Duarte RN documented in this encounterLakehealth [facility]point [facility] Center10-10-2024 Telephone encounter Note * Telephone Encounter - Denisha Duarte RN - 07/30/2024 12:42 PM EDT Pt discharged home from hospital yesterday after having surgery for a perforated bowel. Notes he isscheduled for CT next week and a follow up w/ Dr Anderson a week after. Asks if it is necessary to come in so soon. Discussed w/ Dr Anderson. Dr instructs to cancel pt's appointments. Will see pt in 1 month and schedule scans at that time. Pt notified and verbalizes understanding. Clerical: Please cancel pt's CT and RV appointments. Pt will need to see BRM for labs and RV in 1 month. Thanks! Denisha Duarte RN [facility] Work Phone: [phone] 385-174210-10-2024 NoteMicrobiology PROCEDURE: Blood Culture Charcoal [R1] SOURCE: Blood BODY SITE: Chest COLLECTED DATE/TIME: 07/22/2024 20:39 EDT RECEIVED DATE/TIME: 07/22/2024 23:15 EDT START DATE/TIME: 07/22/2024 23:15 EDT FREE TEXT SOURCE: Peripheral vein site #2 Jewels DO, Shamir S. Jewels DO, Shamir S. FINAL REPORTS Final Report [] Verified Date/Time: 07/30/2024 00:00 EDT No growth at 7 days. Performing Locations R1: This test was performed at: [facility], [address] [place] [address], [id number] , , KjxtbfChillicothe HospitalComment on above:Performed By: #### [id number] #### [facility] [address] [place] [address] [id number] NoteMicrobiology PROCEDURE: Blood Culture Charcoal [R1] SOURCE: Blood BODY SITE: Chest COLLECTED DATE/TIME: 07/22/2024 20:39 EDT RECEIVED DATE/TIME: 07/22/2024 23:15 EDT START DATE/TIME: 07/22/2024 23:15 EDT FREE TEXT SOURCE: PORT Jewels DO, Shamir S. Jewels DO, Shamir S. FINAL REPORTS Final Report [] Verified Date/Time: 07/30/2024 00:00 EDT No growth at 7 days. Performing Locations R1: This test was performed at: [facility], [address] [place] [address], [address] [place] [address], [address] [place], [place] [address]Comment on above:Performed By: #### [id number] #### [facility] [address] [place] [address] [id number] NoteMicrobiology PROCEDURE: Blood Culture Charcoal [R1] SOURCE: [...] Locations R1: This test was performed at: [facility], [address] [place] [address], [address] [place] [address], [address] [place], [place] [address]Comment on above:Performed By: #### [id number] #### [facility] [address] [place] [address] [id number] NoteMicrobiology PROCEDURE: Blood Culture Charcoal [R1] SOURCE: Blood BODY SITE: Arm R COLLECTED DATE/TIME: 07/22/2024 20:19 EDT RECEIVED DATE/TIME: 07/22/2024 20:24 EDT START DATE/TIME: 07/22/2024 20:24 EDT FREE TEXT SOURCE: rt ac Jewels DOShamir DO, Shamir Fan FINAL REPORTS Final Report [] Verified Date/Time: 07/29/2024 21:00 EDT No growth at 7 days. Performing Locations R1: This test was performed at: [facility], [address] [place] [address], [id number]- , [place], IeurgeChillicothe HospitalComment on above:Performed By: #### [id number] #### [facility] [address] [place] [address] [id number] NoteHNO ID: [id number] Author: SHAMIR DE LA TORRE MD Service: Colorectal Author Type: Resident Type: Progress Notes Filed: 08/06/2024 10:00 Note Text: Documentation Query Please clarify the relationship, if any, between cecal perforation and recent colonoscopy: {Please select the appropriate option:[id number]:: Cecal perforation due to recent colonoscopy , This document will become part of the patient's medical record.[facility] 07-29-2024 NoteHNO ID: [id number] Author: SHAMIR DE LA TORRE MD Service: Colorectal Author Type: Resident Type: Progress Notes Filed: 07/29/2024 11:53 Note Text: Blue Team Pager: [phone] General Surgery Colorectal Surgery On-Call Pager: [phone] COLORECTAL SURGERY PROGRESS NOTE Patient Name: Mervat Grayson Date: July 29, 2024 ASSESSMENT AND PLAN: Mervat Grayson is [...] to advance diet to GIS 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 Plan: Neuro: Multimodal pain medication, DC PAINT LINE PRODUCTION SUPERVISOR CV:Coreg, telemetry Pulm: IS encouraged and pulmonary [...] MD General Surgery Resident Blue Team Pager: [phone] General Surgery Colorectal Surgery On-Call Pager: [phone] On nights (6 pm to 6 am) [...] decrease in caliber of the bowel loops. 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[facility] Transcribe Date/Time: Jul 26 2024 10:49P [...] bowel. Could reflect postoperative ileus versus obstruction. 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[facility] Transcribe Date/Time: Jul 26 2024 8:12A Dictated by : SWAPNA VAZQUEZ MD This examination was interpreted and the report reviewed and electronically signed by: SWAPNA VAZQUEZ MD on Jul 26 2024 8:15AM [facility]10-09-2024 NoteHNO ID: [id number] Author: SOCORRO DORSEY RN Service: Care Management [...] 29, 2024 TIME: 10:27 AM PAGER/CONTACT #: [phone] [id number] NoteHNO ID: [id number] Author: NOBLE AGUILAR DO Service: Colorectal Author Type: Resident Type: Progress Notes Filed: 07/28/2024 08:16 Note Text: Blue Team Pager: [phone] General Surgery Colorectal Surgery On-Call Pager: [phone] COLORECTAL SURGERY PROGRESS NOTE Patient Name: Mervat [...] care to be discussed with staff. Noble Aguilar, General Surgery Resident Blue Team Pager: [phone] General Surgery Colorectal Surgery On-Call Pager: [phone] On nights (6 pm to 6 am) [...] decrease in caliber of the bowel loops. 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[facility] Transcribe Date/Time: Jul 26 2024 10:49P [...] bowel. Could reflect postoperative ileus versus obstruction. 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[facility] Transcribe Date/Time: Jul 26 2024 8:12A Dictated by : SWAPNA VAZQUEZ MD This examination was interpreted and the report reviewed and electronically signed by: SWAPNA VAZQUEZ MD on Jul 26 2024 8:15AM [facility]10-07-2024 NoteHNO ID: [id number] Author: SOCORRO DORSEY RN Service: Care Management [...] 27, 2024 TIME: 10:29 AM PAGER/CONTACT #: [phone] [id number] NoteHNO ID: [id number] Author: SHAMIR DE LA TORRE MD Service: Colorectal Author Type: Resident Type: Progress Notes Filed: 07/27/2024 08:03 Note Text: Blue Team Pager: [phone] General Surgery Colorectal Surgery On-Call Pager: [phone] COLORECTAL SURGERY PROGRESS NOTE Patient Name: Mervat [...] MD General Surgery Resident Blue Team Pager: [phone] General Surgery Colorectal Surgery On-Call Pager: [phone] On nights (6 pm to 6 am) [...] decrease in caliber of the bowel loops. 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SHARON Transcribe Date/Time: Jul 26 2024 10:49P Dictated [...] bowel. Could reflect postoperative ileus versus obstruction. 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SHARON Transcribe Date/Time: Jul 26 2024 8:12A Dictated by : SWAPNA VAZQUEZ MD This examination was interpreted and the report reviewed and electronically signed by: SWAPNA VAZQUEZ MD on Jul 26 2024 8:15AM [facility]10-06-2024 NoteHNO ID: [id number] Author: VICENTE MADISON MD Service: Colorectal Author Type: Resident Type: Progress Notes Filed: 07/26/2024 08:32 Note Text: Blue Team Pager: [phone] General Surgery Colorectal Surgery On-Call Pager: [phone] COLORECTAL SURGERY PROGRESS NOTE Patient Name: Mervat [...] MD General Surgery Resident Blue Team Pager: [phone] General Surgery Colorectal Surgery On-Call Pager: [phone] On nights (6 pm to 6 am) [...] bowel. Could reflect postoperative ileus versus obstruction. 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[facility] Transcribe Date/Time: Jul 26 2024 8:12A Dictated by : SWAPNA VAZQUEZ MD This examination was interpreted and the report reviewed and electronically signed by: SWAPNA VAZQUEZ MD on Jul 26 2024 8:15AM [facility]2024 NoteHNO ID: [id number] Author: SHAMIR DE LA TORRE MD Service: Colorectal Author Type: Resident Type: Progress Notes Filed: 07/25/2024 08:43 Note Text: Blue Team Pager: [phone] General Surgery Colorectal Surgery On-Call Pager: [phone] COLORECTAL SURGERY PROGRESS NOTE Patient Name: Mervat [...] MD General Surgery Resident Blue Team Pager: [phone] General Surgery Colorectal Surgery On-Call Pager: [phone] On nights (6 pm to 6 am) [...] not displayed. Imaging Reviewed No orders to displayLongwood [id number] NoteHNO ID: [id number] Author: SOCORRO DORSEY RN Service: Care Management Author Type: Registered Nurse Type: Care Mgt Progress Note Filed: 07/24/2024 12:36 Note Text: CARE MANAGEMENT WEEKEND PLANNING NOTE DISCHARGE OR POSSIBLE DISCHARGE Date/Time: 12:35 PM Disposition: HOme with self care Transport: per family. 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 SIGNATURE: Socorro Dorsey RN PATIENT NAME: Mervat Grayson DATE: July 24, 2024 TIME: 12:35 PM PAGER/CONTACT #: [phone] [id number] NoteHNO ID: [id number] Author: SHAMIR DE LA TORRE MD Service: Colorectal Author Type: Resident Type: Progress Notes Filed: 07/24/2024 07:58 Note Text: Blue Team Pager: [phone] General Surgery Colorectal Surgery On-Call Pager: [phone] COLORECTAL SURGERY PROGRESS NOTE Patient Name: Mervat [...] MD General Surgery Resident Blue Team Pager: [phone] General Surgery Colorectal Surgery On-Call Pager: [phone] On nights (6 pm to 6 am) [...] not displayed. Imaging Reviewed No orders to displayLongwood [id number] NoteHNO ID: [id number] Author: LUCINA SCHRADER RN Service: Care Management Author Type: Registered Nurse Type: Care Mgt Initial Assessment Filed: 07/23/2024 15:27 Note Text: CARE MANAGEMENT: ASSESSMENT AND DISCHARGE PLAN SERVICE DATE: July 23, 2024 SERVICE TIME: 3:14 PM PCP: Lorenzo Marin DO Primary Contact: Extended Emergency Contact Information Primary Emergency Contact: MarjoriemaulikMini Mobile Relation: Spouse Secondary Emergency Contact: CorkyleaFabricio Address: [address] [place] Relation: Daughter Admission Status: Inpatient Insurance [...] General wellness, Be able to go home Britt of Choice Explained: Britt of Choice Given: No Reason Not Given: [...] abdominal pain for pneumoperitoneum post colonoscopy at [place] x2 days ago. S/p Rt laparoscopic colectomy. Hx of PE, rectal CA, cardiomyopathy, and RA. Lives at home with his spouse normally independent with his regular ADLs. No prior C services noted. PT and OT recommendations pending. Likely can transport patient home. PTBD. SIGNATURE: Lucina Schrader RN PATIENT NAME: Mervat Grayson DATE: July 23, 2024 TIME: 3:14 PM CONTACT #: [phone] [id number] NoteHNO ID: [id number] Author: SHAMIR DE LA TORRE MD Service: Colorectal Author Type: Resident Type: Progress Notes Filed: 07/23/2024 07:50 Note Text: Blue Team Pager: [phone] General Surgery Colorectal Surgery On-Call Pager: [phone] COLORECTAL SURGERY PROGRESS NOTE Patient Name: Mervat [...] MD General Surgery Resident Blue Team Pager: [phone] General Surgery Colorectal Surgery On-Call Pager: [phone] On nights (6 pm to 6 am) [...] 8.5 8.8 Imaging Reviewed No orders to displayLongwood [id number] NoteHNO ID: [id number] Author: MK LO MD Service: Anesthesiology Author [...] July 23, 2024 TIME: 1:09 AM CSN: [id number] NoteHNO ID: [id number] Author: MK LO MD Service: Anesthesiology Author [...] July 23, 2024 TIME: 1:06 AM CSN: [id number] NoteHNO ID: [id number] Author: MK LO MD Service: Anesthesiology Author [...] July 23, 2024 TIME: 1:06 AM CSN: [id number] NoteHNO ID: [id number] Author: VÍCTOR AVENDANO AA Service: Anesthesiology Author Type: Public Health Physician Type: Anesthesia Procedure Notes Filed: 07/23/2024 00:52 Note Text: ANESTHESIOLOGY PROCEDURE NOTE A-Line General Information Procedure Start Time/Medication Administration: 07/23/2024 12:39 AM Procedure End Time: 07/23/2024 12:39 AM Patient location during procedure: OR Consent Obtained: Yes Indications: continuous blood pressure monitoring Staffing Anesthesiologist: Mk Lo MD CAA: Víctor Avendano AA Performed by: CAA Preparation Sterility Preparation: sterile drape used during [...] July 23, 2024 TIME: 12:51 AM CSN: [id number] NoteHistory and Physical ACUTE CARE SURGERY CONSULT [...] No. Household alcohol concerns: No. 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 [facility]10-02-2024 Miscellaneous Notes* Telephone Encounter - Chelsie Kolb [...] it happens when he breathesand coughs. CB#: [phone] documented in this encounterLakehealth [facility]point [facility] Center10-02-2024 Evaluation + Plan note Extracted from: Title:ED Note Author:Celeste Ruiz PA-C ate:07/22/24 Ordered: potassium chloride, 20 mEq = 1 tab(s), Tab-ER, Oral, Once, Stop date 07/22/24 18:54:00 EDT, STAT, Start date 07/22/24 18:54:00 EDT, 07/22/24 18:54:00 EDT CBC w/ Auto Diff Comprehensive Metabolic Panel CT Abdomen/Pelvis w/ Contrast eGFR Rapid COVID Antigen ([facility]) Troponin 0 Hr. UA with Cult Rflx Future Appointments Appointment Date:09/10/2024 08:00:00 AM Scheduled Provider:Santiago Kong MD [facility] Type:Cardiology Follow Up (FT) Appointment Date:02/15/2025 08:45:00 AM Scheduled Provider:Corey SINGLETON MD Location:[facility] Appointment Type:URO Office Visit Diagnostic Tests Pending * Blood Culture Charcoal 07/22/24 * Blood Culture Charcoal 07/22/24 Future Scheduled Tests Laboratory* B-Type Natriuretic Peptide 11/01/23 * Basic Metabolic Panel 11/01/23 [facility] 10-02-2024 Telephone encounter Note* Telephone Encounter - Kraig Herring - 07/22/2024 9:12 AM EDT Pt is experiencing sharp pain in umbilical region after colonoscopy and it happens when he breathesand coughs. CB#: [phone] [facility]10-01-2024 History of Present illness Narrative* Chelsie Kolb RN - 07/21/2024 11:28 AM EDT Sigmoidoscopy order. Due Oct/Nov 2024 documented in this encounterLakehealth [facility] Center10-01-2024 History of Present illness Narrative* Shamir De [...] 07/21/2024 Time: 9:23 AM documented in this encounterLakehealth [facility] Center10-01-2024 NoteHNO ID: [id number] Author: DEBORAH NORMAN MD Service: Colorectal Author [...] Shamir De La Torre MD 07/21/2024 8:32 [id number] History of Present illness Narrative* JANINE Corey [...] Bacterial folliculitis posterior scalp Follicularly-based erythematous papules. Flared tooday Discussed that folliculitis is a common condition [...] limited to risks of scarring, darker or financial planner pigmentary changes, recurrence, incomplete removal and infection. [...] months (folliculitis, offer FBSE) documented in this encounterMid Missouri Mental Health CenterEnqcuclpox55-01-2047 History of Present illness Narrative* JANINE Goss [...] for requiring urgent evaluation. documented in this encounterMid Missouri Mental Health CenterVfbkhrwjke06-77-6249 Telephone encounter Note* Telephone Encounter - Laura Slaughter RN - 06/26/2024 2:42 PM EDT Please sign pended labs for 5 month f/u if agreeable-will draw with CT Thank You! Laura Slaughter RN [facility]09-06-2024 Miscellaneous Notes* Telephone Encounter - Laura Slaughter RN - 06/26/2024 2:42 PM EDT Please sign pended labs for 5 month f/u if agreeable-will draw with CT Thank You! Laura Slaughter RN documented in this encounterLakehealth [facility] Center08-15-2024 Miscellaneous Notes* Allied Health - Norman Mauricio RT(R) - [...] PATIENT PRESENTS WITH AN 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: No RADIOLOGY DEPARTMENT: MR; Exam(s) Completed: Body: Rectal PERIPHERAL IV DATA: Site assessment: Clean,Dry and Intact, Site disposition Discontinued SIGNED BY: RT Dayna(R) June 04, 2024 1:43 PM documented in this encounterLakehealth Tripoint [facility] Center08-15-2024 Nurse Note* Estrella Mcmillan RN - 06/04/2024 [...] NS. Pt tolerated well. Band aid placed. [facility]08-15-2024 Nurse Note* Estrella Mcmillan RN - 06/04/2024 [...] well. Band aid placed. documented in this encounterLakehealth Tripoint Medical Center08-15-2024 Progress note* Allied Health - Norman Mauricio [...] PATIENT PRESENTS WITH AN 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: No RADIOLOGY DEPARTMENT: MR; Exam(s) Completed: Body: Rectal PERIPHERAL IV DATA: Site assessment: Clean,Dry and Intact, Site disposition Discontinued SIGNED BY: RT Dayna(R) June 04, 2024 1:43 PM [facility]07-30-2024 Telephone encounter Note* Telephone Encounter - Chelsie Kolb RN - 05/19/2024 3:42 PM EDT Called patient and left message telling him he is due for a colonoscopy with Dr. Norman for cancer surveillance. Asked if 07/21 or 08/18 would work for him. [facility]07-30-2024 Miscellaneous Notes* Telephone Encounter - Chelsie Kolb RN - 05/19/2024 3:42 PM EDT Called patient and left message telling him he is due for a colonoscopy with Dr. Norman for cancer surveillance. Asked if 07/21 or 08/18 would work for him. documented in this encounterLakehealth [facility] Center07-30-2024 History of Present illness Narrative* Chelsie Kolb RN - 05/19/2024 3:37 PM EDT Colonoscopy order for rectal cancer surveillance documented in this encounterLakehealth [facility]point [facility] Center05-22-2024 History of Present illness Narrative* Minerva Anderson [...] biopsy: Squamous mucosa polyp. 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 01/22/2023 Lower extremity Doppler ([facility]) Extensive deep venous thrombosis of the left [...] related to the thorax. 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 Few nonenlarged 2 to 3 mm mesorectal lymph nodes. No suspicious lymphadenopathy. 09/11/2022 CT chest, abdomen, pelvis ([facility]) Possible low-attenuation lesion right hepatic lobe [...] indefinitely. Minerva Anderson MD documented in this encounterLakehealth [facility] Center05-07-2024 History and physical note * Dayanara Shaffer MD - 02/25/2024 11:30 AM EDT ENDOSCOPY HISTORY AND PHYSICAL EXAM Mervat Dumont Nelson [id number] Subjective HPI: This is a 73 year [...] Norman MD Date: 02/25/2024 Time: 11:28 AM [facility]05-07-2024 History and physical note* Dayanara Shaffer MD - 02/25/2024 11:30 AM EDT ENDOSCOPY HISTORY AND PHYSICAL EXAM Mervat Grayson [id number] Subjective HPI: This is a 73 year [...] 02/25/2024 Time: 11:28 AM documented in this encounterLakehealth [facility] Center04-26-2024 Hospital Discharge instructions Patient Education 02/14/2024 10:36:23 [...] urethra. Follow these instructions at home: Take hayw-ufb-hbxktlw and prescription medicines only as told by [...] provider. Document Revised: 04/25/2022 Document Reviewed: 04/25/2022 [employer] Patient Education 2022 [employer]. Follow Up Care 09/16/2023 12:00:44 With:RYLEE ARRINGTON, MARCUS Miles Address: [address] [place], [place] [id number]- When: Unknown [facility] Maisha 03-27-2024 Hospital Discharge instructions Follow Up Care 01/15/2024 14:20:09 With:Santiago Kong MD Address: When:Within 6 Month(s) With:Santiago Kong MD Address: When:Within 6 Month(s) [facility]03-04-2024 Miscellaneous Notes* Telephone Encounter - Minal Corey RN - 12/23/2023 1:07 PM EST Pt informed of ActiveRe[employer]'s message and denies any questions, needs or concerns at this time. Appointment verified. Minal Corey RN * Telephone Encounter - Minal oCrey RN - 12/23/2023 1:07 PM EST ----- Message from Minerva Anderson MD sent at 12/23/2023 12:53 PM EST ----- Please inform the patient that his scans and labs are very stable with no evidence of disease. We will continue as planned, and see him back as scheduled. documented in this encounterLakehealth [facility] Center03-01-2024 History of Present illness Narrative* Laura Slaughter [...] 20, 2023 TIME: 9:04 AM * Denisha Allen, RT(R) - 12/20/2023 9:15 AM EST Radiology [...] PATIENT PRESENTS WITH AN 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: POWER port RADIOLOGY DEPARTMENT: CT; Exam(s) Completed: Chest Abdomen Pelvis With IV and Oral contrast PERIPHERAL IV DATA: Not applicable SIGNED BY: RT Johny(R) December 20, 2023 9:20 AM POWER port scanned 12/20/3022 documented in this encounterLakehealth [facility] Center02-13-2024 Miscellaneous Notes* Allied Health - Blessed Muniz [...] PATIENT PRESENTS WITH AN 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: No RADIOLOGY DEPARTMENT: MR; Exam(s) Completed: Body: Rectal PERIPHERAL IV DATA: Not applicable SIGNED BY: INNA Vazquez) Adrianne Byrnemaulik Tech December 03, 2023 2:36 PM documented in this encounterLakehealth [facility] Center02-13-2024 Nurse Note* Noris Hong RN - 12/03/2023 [...] 2023 TIME: 1:54 PM documented in this encounterLakehealth [facility]point [facility] Center12-21-2023 History of Present illness Narrative* Chelsie Kolb RN - 10/10/2023 8:33 AM EST CEA order documented in this encounterLakehealth Tripoint Medical Center12-20-2023 Evaluation + Plan note Extracted from: Title:Pain Managment Follow up Author:Joanne Morales Date:10/09/23 Impression and Plan Patient is a 73-year-old male with a past medical history significant for lumbar spondylosis, lumbar stenosis and lumbar neuritis. he underwent a full course of physical therapy without improvement. Pelo-jsi-vufzcag medications have not helped. He is not [...] Date:11/01/2023 01:45:00 PM Scheduled Provider:Santiago Kong MD [facility] Type:Cardiology Follow Up (FT) Appointment Date:01/03/2024 09:45:00 AM Scheduled Provider:Corey SINGLETON MD Location:[facility] Appointment Type:URO Office Visit Future Scheduled Tests Radiology* XR Abdomen 1 View 09/20/22 [facility]11-08-2023 Miscellaneous Notes* Telephone Encounter - Chelsie Kolb [...] you for your help. documented in this [facility]10-04-2023 History of Present illness Narrative* Chelsie Kolb RN - 07/24/2023 2:22 PM EDT CEA and sigmoidoscopy order documented in this [facility]09-26-2023 Evaluation note* Encounter Date Diagnosis Assessment [...] M54.50) Reviewed xray of low back from [facility] 05/21/2023, which shows there is prominent narrowing [...] ROM/ pain is minimal with Physical Therapy. [facility] Other 09-19-2023 Miscellaneous Notes* Anesthesia PreOp - [...] 2023 TIME: 9:22 AM documented in this encounterLakehealth [facility] Center09-05-2023 History of Present illness Narrative* Chelsie Kolb RN - 06/25/2023 3:[address] chest, CT abdomen orders documented in this encounterLakehealth [facility]point Medical Center08-31-2023 Miscellaneous Notes* Telephone Encounter - Andree Hollis APRN.CNP - 06/20/2023 10:44 AM EDT The following approved medication requests have been transmitted electronically. Requested Prescriptions Signed Prescriptions Disp Refills gabapentin (NEURONTIN) 300 mg capsule 30 capsule 0 Sig: Take 1 capsule by mouth daily at bedtime for 30 days. Authorizing Provider: ANDREE HOLLIS APRN.ARACELY * Telephone Encounter - Denisha Duarte [...] Would like script sent to [facility]. RACIEL/Andree: Script pended. Denisha Duarte RN documented in this encounterLakehealth [facility] Center08-31-2023 History of Present illness Narrative* Denisha Allen [...] POWER port scanned 12/20/2022-NS documented in this encounterLakehealth [facility]point Medical Center08-30-2023 Miscellaneous Notes* Telephone Encounter - [...] labs. Denisha Duarte RN documented in this encounterLakehealth [facility]point [facility] Center08-29-2023 Evaluation note* Encounter Date Diagnosis [...] 6 months. May, Neuropathy (ICD-10 - G62.9) [facility] Other 08-08-2023 History of Present illness Narrative* Minerva Anderson MD - 05/28/2023 7:41 AM EDT PATIENT NAME: Mervat Grayson DATE: 05/28/2023 PRIMARY CARE PHYSICIAN: Dr. Lorenzo aMrin OTHER PHYSICIANS: Dr. Mervat Slaughter, Dr. Thalia [...] - Squamous mucosa polyp. 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 01/22/2023 Lower extremity Doppler ([facility]) Extensive deep venous thrombosis of the left [...] related to the thorax. 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 Few nonenlarged 2 to 3 mm mesorectal lymph nodes. No suspicious lymphadenopathy. 09/11/2022 CT chest, abdomen, pelvis ([facility]) Possible low-attenuation lesion right hepatic lobe [...] indefinitely. Minerva Anderson MD documented in this encounterLakehealth [facility] Center07-25-2023 Miscellaneous Notes* Telephone Encounter - Denisha Duarte RN - 05/14/2023 8:22 AM EDT Pt here for repeat potassium today. Lab orders pended. Denisha Duarte RN documented in this encounterLakehealth [facility] Center07-18-2023 Evaluation + Plan note Extracted [...] Tests Radiology* XR Abdomen 1 View 09/20/22 [facility]07-14-2023 Miscellaneous Notes* Telephone Encounter - Chelsie Kolb [...] his best option for colonoscopy. Contact #: [phone] documented in this encounterLakehealth [facility] Center07-14-2023 Miscellaneous Notes* Telephone Encounter - Chelsie Kolb [...] and CT in September. documented in this encounterLakehealth [facility] Center07-14-2023 Miscellaneous Notes* Telephone Encounter - Chelsie Kolb RN - 05/03/2023 9:21 AM EDT Sigmoidoscopy, CEA, MRI rectum and CT chest/abd orders Flex sig and CEA in q 3 month until March [address] in q 6 months until March 2025 documented in this encounterLakehealth [facility]point [facility] Center07-10-2023 Hospital Discharge instructions Patient Education 04/29/2023 09:33:46 Heart-Healthy Eating Plan, Pnnc-au-Wvfs Heart-Healthy Eating Plan Heart-healthy meal planning includes: [...] Fats and oils Meat fat, or shortening. [employer] butter, hydrogenated oils, palm oil, coconut oil, [...] provider. Document Revised: 02/15/2022 Document Reviewed: 02/15/2022 [employer] Patient Education 2021 [employer]. Follow Up Care 01/22/2023 16:31:22 With:Dilan ARRINGTON, Santiago Ortiz. Address: When:6 months Comments:Call for sooner apt with new/worsening symptoms [facility]07-07-2023 Miscellaneous Notes* Telephone Encounter - [...] a supplement. Thanks, B documented in this encounterLakehealth [facility]point [facility] Center06-22-2023 Evaluation note* Encounter Date Diagnosis [...] or others. We will follow-[facility] crisis line [phone] given. 22 Sebastien, 2023 Encounter for tobacco use screening (ICD-10 - Z01.89) Tobacco screening completed never smoker. [facility] Other 06-20-2023 History and physical note* Dayanara [...] obtained SIGNATURE: Dayanara Orlando MD PATIENT NAME: eMrvat Grayson DATE: April 09, 2023 TIME: 12:18 PM documented in this encounterLakehealth [facility]point [facility] Center06-07-2023 Miscellaneous Notes* Telephone Encounter - [...] scheduled colonoscopy on 04/09/23. documented in this encounterLakehealth [facility]point [facility] Center06-06-2023 Miscellaneous Notes* Telephone Encounter - Chelsie Kolb RN - 03/26/2023 1:55 PM EDT Returned call. Told him he can either call the office or send a [employer] message and I'd be happy to answer his questions. * Telephone Encounter - Bre Pruitt - 03/26/2023 1:42 PM EDT Patient called with questions about Colonoscopy and MRI would like to speak with someone. PH:[phone] documented in this encounterLakehealth [facility]point [facility] Center06-06-2023 Miscellaneous Notes* Telephone Encounter - [...] pt. Denisha Duarte RN documented in this encounterLakehealth Tripoint Medical Center05-31-2023 Miscellaneous Notes* Telephone Encounter - [...] the population without disease(benign polymorphism). Please see K94 [employer] message for further discussion. Santiago Lema MS, [facility] Licensed, Certified Genetic Counselor documented in this encounterLakehealth Tripoint Medical Center05-30-2023 History of Present illness Narrative* [...] muscle spasms. He was seen at the [facility] ER on 03/18/2023 for evaluation. Work-up including [...] wounds or petechiae. 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 Few nonenlarged 2 to 3 mm mesorectal lymph nodes. No suspicious lymphadenopathy. 09/11/2022 CT chest, abdomen, pelvis ([facility]) Possible low-attenuation lesion right hepatic lobe [...] indefinitely. Minerva Anderson MD documented in this encounterLakehealth Tripoint Medical Center05-29-2023 Hospital Discharge instructions Patient Education [...] avoid intense exercise for several days. Take zcuh-zul-ueqxqdq and prescription medicines only as told by [...] provider. Document Revised: 04/27/2022 Document Reviewed: 04/27/2022 [employer] Patient Education 2022 [employer]. 03/18/2023 13:40:26 Community-Acquired Pneumonia, Adult Community-Acquired Pneumonia, [...] Follow these instructions at home: Medicines Take vlpy-qya-vofeqjb and prescription medicines only as told by [...] and water are not available, use hand retail receiving clerk. Contact a health care provider if you [...] provider. Document Revised: 07/19/2020 Document Reviewed: 07/19/2020 [employer] Patient Education 2022 [employer]. Follow Up Care 03/18/2023 10:25:52 With:Lorenzo MARIN Address: [address] [address]- Business (1) When:03/21/2023 13:34:29 Comments:Return to the emergency room if your shortness of breath gets worse, your neck pain gets worse or any new symptoms. Be aware that both [place] and Flexeril can cause drowsiness. [facility]05-29-2023 Evaluation + Plan noteExtracted from: Title:ED Note Author:Yuridia Houser M.D. te:03/18/23 1. Pneumonia (J18.9: Pneumon ia, unspecified organism) 2. Neck muscle spasm (M62.838: Other muscle spasm) Ordered: acetaminophen-hydrocodone, 1 tab(s), Oral, q6hr as needed for pain, 10 tab(s), Refill(s) 0, [id number], 188, cm, 03/18/23 10:50:00 EDT, Height/Length Dosing, 111, kg, 03/18/23 10:50:00 EDT, Weight Dosing Orders: acetaminophen-oxycodone, 1 tab(s), Tab, Oral, Once, Stop date 03/18/23 11:55:00 EDT, STAT, Start date 03/18/23 11:55:00 EDT azithromycin, = 1 packet(s), Oral, As Directed, as directed on package labeling, X 5 day(s), # 6 tab(s), Refills(s) 0, Pharmacy: [facility] #[id number], 188, cm, 03/18/23 10:50:00 EDT, Height/Length Dosing, 111, kg, 03/18/23 10:50:00 EDT, Weight Dosing cyclobenzaprine, 10 mg = 1 tab(s), Oral, TID, PRN for spasm, # 20 tab(s), Refills(s) 0, Pharmacy: [facility] #[id number], 188, cm, 03/18/23 10:50:00 EDT, Height/Length Dosing, [...] Tests Radiology* XR Abdomen 1 View 09/20/22 [facility]05-24-2023 History of Present illness Narrative* G Saeed eKy MD - 03/13/2023 10:31 AM EDT Radiation Oncology - Follow Up Note PATIENT NAME: Mervat Grayson PATIENT DIAGNOSIS: Adenocarcinoma of the lower rectum MRI staged [id number] RADIATION SUMMARY: DATES OF TREATMENT: 10/08/2022- 11/19/2022 [...] Lorenzo Marin [address] [place] [address] No referring provider defined for this encounter. documented in this encounterLakehealth Tripoint Medical Center05-16-2023 History of Present illness Narrative* Emilia Olivas RN - 03/05/2023 9:50 AM EDT HM back to tx room to give pt information on potassium rich diet. Emilia Olivas RN documented in this encounterLakehealth Tripoint Medical Center05-09-2023 Miscellaneous Notes* Telephone Encounter - Samantha Hi [facility] - 02/26/2023 12:19 PM EDT Approved for free Xarelto from [employer] through 10/20/23. Prescriptions are filled at their internal pharmacy [facility]. JPAO phone [phone] documented in this encounterLakehealth Tripoint Medical Center05-02-2023 History of Present illness Narrative* [...] wounds or petechiae. 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 Few nonenlarged 2 to 3 mm mesorectal lymph nodes. No suspicious lymphadenopathy. 09/11/2022 CT chest, abdomen, pelvis ([facility]) Possible low-attenuation lesion right hepatic lobe [...] indefinitely. Minerva Anderson MD documented in this encounterLakehealth Tripoint Medical Center04-20-2023 Nurse Note* Alpa Carr RN [...] Temperature: No Drains: No documented in this encounterLakehealth Tripoint Medical Center04-20-2023 History of Present illness Narrative* Deborah Norman MD - 02/07/2023 2:20 PM EDT COLORECTAL SURGERY February 06, 2023 Mervat Grayson 72 year old This consult was requested by Dr. Mccabe and my final recommendations will be communicated to the requesting health care provider by way of the shared medical record for internal providers or letter via the [employer] for external providers. Chief Complaint: [...] He had his surgical care established in [place] but wishes to transfer to [place]. Heis doing well with chemotherapy so far. [...] Digital rectal exam reveals indurated ulcer anterior Sweat Band Sewer present: Yes, Alpa Carr Anoscopy: The patient [...] Norman MD Colorectal Surgery documented in this encounterLakehealth Tripoint Medical Center04-17-2023 History of Present illness Narrative* Micha Mccabe [...] mass. After that he saw, oncology in [place]. Plan was to start chemo and radiation [...] evaluated at [facility] on 08/20/22 via flexible sigmoidoscopy demonstrating a [...] (L) 0.83 (L) 0.71 (L) 0.79 (L) [place]% % 8.7 9.5 9.2 11.1 10.6 9.7 8.9 Abs [place] <0.87 k/uL 0.53 0.55 0.78 0.64 0.74 [...] evaluated at [facility] on08/20/22 via flexible sigmoidoscopy demonstrating a friable, firm lesion encompassing yhhxwitxiqjqs00-35% of the circumference of the anus right [...] this well Was seen by surgery at [place] but prefers to keep his care at [...] No follow-ups on file. documented in this encounterLakehealth Tripoint Medical Center04-06-2023 Miscellaneous Notes* Telephone Encounter - [...] RN * Telephone Encounter - Andree Hollis APRN.GROCERY STORE BAGGER - 01/23/2023 10:52 AM EDT Signed. Andree Hollis APRN.GROCERY STORE BAGGER * Telephone Encounter - Denisha Duarte RN - 01/23/2023 9:42 AM EDT Call placed to Dr Anderson to clarify anticoagulant. Per Dr Anderson, Eliquis script cancelled due to cost. Pt to [...] Dr. Kebede who is at [facility], and hopefully easier to get into [...] If so, pt would like referred to [facility] and asks who you [...] mg BID. Script will be sent to [facility] pharmacy. Pt present in office at time of call. Pt notified of 's recommendations and verbalizes understanding. 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 Denisha Duarte RN documented in this encounterLakehealth Tripoint Medical Center04-04-2023 Miscellaneous Notes* Telephone Encounter - Denisha Duarte RN - 01/22/2023 1:35 PM EDT Voicemail message received from [facility] Central Scheduling. States that they are still waiting for ouroffice to fax the pt's US order. Asks that we send it to [phone]. Order faxed to the above number as requested. Denisha Duarte RN documented in this encounterLakehealth Tripoint Medical Center04-04-2023 History of Present illness Narrative* Hoa Owen [...] Owen MS, RDN, LD documented in this encounterLakehealth Tripoint Medical Center04-04-2023 History of Present illness Narrative* Ashley Godinez RN - 01/22/2023 9:29 AM EDT Patient to get an US of LLE edema per Andree. Would like it a [facility]. front desk receptionist notified of another appointment that patient has today at [address] there. Ashley Godinez RN documented in this encounterLakehealth Tripoint Medical Center04-04-2023 History of Present illness Narrative* Andree Hollis APRN.GROCERY STORE BAGGER - 01/22/2023 8:49 AM EDT PATIENT NAME: [...] wounds or petechiae. 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 Few nonenlarged 2 to 3 mm mesorectal lymph nodes. No suspicious lymphadenopathy. 09/11/2022 CT chest, abdomen, pelvis ([facility]) Possible low-attenuation lesion right hepatic lobe [...] to colorectal surgery (Dr. Thalia Troy in [place]) for restaging to include pelvic MRI and [...] ultrasound to rule out DVT. Andree Hollis APRN.GROCERY STORE BAGGER CC: Dr. Thalia Troy ([facility] Colorectal Surgery) I spent a total of 30 minutes on the date of the service which included preparing to see the patient, yllr-ai-ecxj patient care, completing clinical documentation, obtaining and/or reviewing separately obtained history, performing a medically appropriate examination, counseling and educating the pat ient/family/caregiver, ordering medications, tests, or procedures, independently interpreting results (not separately reported), and communicating results to the patient/family/caregiver. documented in this encounterLakehealth Tripoint Medical Center03-31-2023 Miscellaneous Notes* Telephone Encounter - Renata Amin - 01/18/2023 4:14 PM EDT Patient has an OTV appointment on 01/22. Please place lab orders. Renata Amin documented in this encounterLakehealth Tripoint Medical Center03-27-2023 Miscellaneous Notes* Telephone Encounter - Denisha Duarte RN - 01/14/2023 12:17 PM EDT Pt notified and verbalizes understanding. 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 However, a flex sigmoidoscopy would be recommended to make sure nothing else serious going on. Best if he could see his [place] colorectal surgeon. If not able to get in to see her the local beater out can perform a flex sig. Kana Siddiqui [...] advise? Denisha Duarte RN documented in this encounterLakehealth Tripoint Medical Center03-21-2023 History of Present illness Narrative* [...] no significant changes but weight fluctuations noted [place] Body Weight: 79.9kg Estimated kilocalorie needs: 3440-8188 kilocalories determined by 25-30 kcal/kg Estimated protein needs: 80-96 grams determined by 1.0-1.2 g/kg [place] weight Estimated fluid needs: ~5547-5865 milliliters based on 1 mL per kcal [...] 60 mg/m2 (Treatment Plan Recorded) INTRAVENOUS ONCE Mnierva Anderson MD 145.8 mg at 01/08/23927 leucovorin [...] Owen MS, RDMorgan, LD documented in this encounterLakehealth Tripoint Medical Center03-21-2023 Nurse Note* Lisseth Chávez - 01/08/2023 8:23 AM EDT Pt states that he had a lot of nausea after his last treatment and felt sick for 2 days after despite using his antiemetics. Lisseth Chávez' documented in this encounterLakehealth Tripoint Medical Center03-21-2023 History of Present illness Narrative* [...] wounds or petechiae. 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 Few nonenlarged 2 to 3 mm mesorectal lymph nodes. No suspicious lymphadenopathy. 09/11/2022 CT chest, abdomen, pelvis ([facility]) Possible low-attenuation lesion right hepatic lobe [...] to colorectal surgery (Dr. Thalia Troy in [place]) for restaging to include pelvic MRI and [...] Minerva Anderson MD CC: Dr. Thalia Troy ([facility] Colorectal Surgery) documented in this encounterLakehealth Tripoint Medical Center03-10-2023 Miscellaneous Notes* Telephone Encounter - [...] protocol. Lucy Goetz RN documented in this encounterLakehealth Tripoint Medical Center03-02-2023 History of Present illness Narrative* Denisha Duarte RN - 12/20/2022 2:55 PM EST [employer] Pre Chemo Patient identified by name and date of . YES Confirmed date and time for chemotherapy ? YES Other appointments (labs, imaging) discussed? YES Discussed where to park (boom stick man), charge for parking NO Discussed where to [...] Ivana. Denisha Duarte RN documented in this encounterLakehealth Tripoint Medical Center03-01-2023 Miscellaneous Notes* Telephone Encounter - Rashmi Lerner - 12/19/2022 1:28 PM EST Patient has been scheduled. Rashmi Lerner * Telephone Encounter - Rashmi Lerner - 12/17/2022 4:02 PM EST Call placed to [facility] for port placement. Left message on voicemail. Rashmi Lerner documented in this encounterLakehealth Tripoint Medical Center03-01-2023 Miscellaneous Notes* Telephone Encounter - Milton Arndt RN - 12/19/2022 10:16 AM EST You are scheduled for a Mediport placement, On 12/20/2022. You are to arrive at 0900 am and Report to [facility]: [facility]: Enter through [facility] entrance. [...] if they are not done at a [facility] facility. . Car Dealer/Transportation: How will you be arriving for your procedure? Private car. You will need a responsible adult to accompany you to and from the procedure. Your water truck driver is required to stay with you until you are taken into the procedure room. Call for any questions [phone] documented in this encounterLakehealth Tripoint Medical Center02-28-2023 Miscellaneous Notes* Telephone Encounter - Orin Kolb - 12/18/2022 8:36 AM EST Patient coming in on Saturday12/25/22 for follow up treatment. Please add lab orders. Thanks. Orin Kolb MA documented in this encounterLakehealth Tripoint Medical Center02-27-2023 History of Present illness Narrative* Minerva Anderson [...] wounds or petechiae. 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 Few nonenlarged 2 to 3 mm mesorectal lymph nodes. No suspicious lymphadenopathy. 09/11/2022 CT chest, abdomen, pelvis ([facility]) Possible low-attenuation lesion right hepatic lobe [...] to colorectal surgery (Dr. Thalia Troy in [place]) for restaging to include pelvic MRI and [...] Minerva Anderson MD CC: Dr. Thalia Troy ([facility] Colorectal Surgery) documented in this encounterLakehealth Tripoint Medical Center02-20-2023 History of Present illness Narrative* Minal Corey [...] 10, 2022 12:58 PM documented in this encounterLakehealth Tripoint Medical Center01-31-2023 Miscellaneous Notes* Telephone Encounter - Katerina Hargrove [...] kidneys . RACIEL Siddiqui documented in this encounterLakehealth Tripoint Medical Center01-30-2023 History of Present illness Narrative* G Saeed Key MD - 11/19/2022 2:38 PM EST Radiation Oncology - On Treatment Review (OTR) Note PATIENT NAME: Mervat Grayson PATIENT DIAGNOSIS: Adenocarcinoma of the lower rectum MRI staged [id number] COURSE: definitive and concurrent chemotherapy Current dose: [...] weeks. Dania Key MD documented in this encounterLakehealth Tripoint Medical Center01-30-2023 History of Present illness Narrative* [...] wounds or petechiae. 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 Few nonenlarged 2 to 3 mm mesorectal lymph nodes. No suspicious lymphadenopathy. 09/11/2022 CT chest, abdomen, pelvis ([facility]) Possible low-attenuation lesion right hepatic lobe [...] to colorectal surgery (Dr. Thalia Troy in [place]) to discuss surgical options. 2. Rheumatoid arthritis [...] Minerva Anderson MD CC: Dr. Thalia Troy ([facility] Colorectal Surgery) documented in this encounterLakehealth Tripoint Medical Center01-30-2023 History of Present illness Narrative* Dania Key MD - 11/19/2022 12:00 AM EST [facility] Radiation Oncology Department RADIATION ONCOLOGY - COMPLETION NOTE PATIENT: MERVAT GRAYSON: 1950 DATES OF TREATMENT: 10/08/2022- 11/19/2022 DIAGNOSIS: Adenocarcinoma of the lower rectum MRI staged [id number] AREA TREATED: rectum DELIVERED DOSE: Area: pelvis [...] cc: Dr. Lorenzo Anderson documented in this encounterLakehealth Tripoint Medical Center01-26-2023 History of Present illness Narrative* Dania Key MD - 11/15/2022 8:34 AM EST [employer] films reviewed. documented in this encounterLakehealth Tripoint Medical Center01-23-2023 History of Present illness Narrative* Dania Key MD - 11/12/2022 2:01 PM EST Radiation Oncology - On Treatment Review (OTR) Note PATIENT NAME: Mervat Grayson PATIENT DIAGNOSIS: Adenocarcinoma of the lower rectum MRI staged [id number] COURSE: definitive and concurrent chemotherapy Current dose: [...] outlined. Dania Key MD documented in this [facility]01-19-2023 Nurse Note* Re Alvarez LPN - [...] assist. Re Alvarez LPN documented in this encounterLakehealth Tripoint Medical Center01-18-2023 Miscellaneous Notes* Telephone Encounter - Re Alvarez LPN - 11/07/2022 2:13 PM EST Standing weekly cbc order pending your approval. Please indicate how often you want CBC drawn. Re Alvarez LPN documented in this [facility]01-18-2023 Miscellaneous Notes* Telephone Encounter - Andree Hollis APRN.CNP - 11/07/2022 1:49 PM EST The following approved medication requests have been transmitted electronically. Requested Prescriptions Signed Prescriptions Disp Refills oxyCODONE-acetaminophen (PERCOCET) 5-325 mg tablet 100 tablet 0 Sig: Take 1 tablet by mouth every 6 hours as needed for pain. Authorizing Provider: ANDREE HOLLIS APRN.CNP * Telephone Encounter - Re Alvarez LPN - 11/07/2022 1:44 PM EST Michael is here for radiation therapy with c/o increasing rectal pain. He is currently taking hydrocodone-apap 5/325mg 1 tablet three times daily with little relief. He states he and Andree discussed possibly changing pain medication if needed. He would like any prescriptions sent to [facility] pharmacy. Re Alvarez LPN documented in this encounterLakehealth Tripoint Medical Center01-16-2023 History of Present illness Narrative* G Saeed Key MD - 11/05/2022 10:04 AM EST Radiation Oncology - On Treatment Review (OTR) Note PATIENT NAME: Mervat Grayson PATIENT DIAGNOSIS: Adenocarcinoma of the lower rectum MRI staged [id number] COURSE: definitive and concurrent chemotherapy Current dose: [...] outlined. Dania Key MD documented in this encounterLakehealth Tripoint Medical Center01-09-2023 History of Present illness Narrative* Andree Hollis APRN.GROCERY STORE BAGGER - 10/29/2022 3:32 PM EST PATIENT NAME: [...] wounds or petechiae. 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 Few nonenlarged 2 to 3 mm mesorectal lymph nodes. No suspicious lymphadenopathy. 09/11/2022 CT chest, abdomen, pelvis ([facility]) Possible low-attenuation lesion right hepatic lobe [...] evidence of ongoing thromboembolic disease. Andree Hollis APRN.GROCERY STORE BAGGER CC: Dr. Thalia Troy ([facility] Colorectal Surgery) I spent a total of 30 minutes on the date of the service which included preparing to see the patient, ogne-rq-ccwa patient care, completing clinical documentation, obtaining and/or reviewing separately obtained history, performing a medically appropriate examination, counseling and educating the pat ient/family/caregiver, ordering medications, tests, or procedures, independently interpreting results (not separately reported), and communicating results to the patient/family/caregiver. documented in this encounterLakehealth Tripoint Medical Center01-09-2023 History of Present illness Narrative* Dennis Cheung MD - 10/29/2022 2:00 PM EST Radiation Oncology - On Treatment Review (OTR) Note PATIENT NAME: Mervat Grayson PATIENT DIAGNOSIS: Adenocarcinoma of the lower rectum MRI staged [id number] COURSE: definitive and concurrent chemotherapy Current dose: [...] planned. Dennis Cheung MD documented in this encounterLakehealth Tripoint Medical Center01-04-2023 Hospital Discharge instructions Patient Education 10/24/2022 [...] Follow these instructions at home: Medicines Take gmtg-tmv-rskkpyk and prescription medicines only as told by [...] 10/04/2001 Document Revised: 09/19/2018 Document Reviewed: 10/23/2017 [employer] Patient Education 2020 [employer]. Follow Up Care 09/28/2021 14:33:01 With:VIVI ESCOBAR, ASHLEY Perez, URL Address: [place] [id number] When:3 months [facility] [place] 01-03-2023 History of Present illness Narrative* Jaclyn Brewer RPh - 10/23/2022 2:31 PM EST Opened in error. documented in this encounterLakehealth [facility]point [facility] Center01-03-2023 History of Present illness Narrative* Dania Key MD - 10/23/2022 8:03 AM EST Radiation Oncology - On Treatment Review (OTR) Note PATIENT NAME: Mervat Grayson PATIENT DIAGNOSIS: Adenocarcinoma of the lower rectum MRI staged [id number] COURSE: definitive and concurrent chemotherapy Current dose: [...] outlined. Dania Key MD documented in this encounterLakehealth Tripoint Medical Center12-30-2022 History of Present illness Narrative* [...] Owen MS, RDN, LD documented in this encounterLakehealth Tripoint Medical Center12-27-2022 History of Present illness Narrative* G Saeed Key MD - 10/16/2022 1:16 PM EST Radiation Oncology - On Treatment Review (OTR) Note PATIENT NAME: Mervat Grayson PATIENT DIAGNOSIS: Adenocarcinoma of the lower rectum MRI staged [id number] COURSE: definitive and concurrent chemotherapy Current dose: [...] outlined. Dania Key MD documented in this encounterLakehealth Tripoint Medical Center12-22-2022 History of Present illness Narrative* Anrdee Hollis APRN.[employer] - 10/11/2022 2:55 PM EST PATIENT NAME: [...] wounds or petechiae. 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 Few nonenlarged 2 to 3 mm mesorectal lymph nodes. No suspicious lymphadenopathy. 09/11/2022 CT chest, abdomen, pelvis ([facility]) Possible low-attenuation lesion right hepatic lobe [...] Andree Hollis APRN.CNP CC: Dr. Thalia Troy ([facility] Colorectal Surgery) I spent a total of 30 minutes on the date of the service which included preparing to see the patient, hxih-ai-pood patient care, completing clinical documentation, obtaining and/or reviewing separately obtained history, performing a medically appropriate examination, counseling and educating the pat ient/family/caregiver, ordering medications, tests, or procedures, independently interpreting results (not separately reported), and communicating results to the patient/family/caregiver. documented in this encounterLakehealth Tripoint Medical Center12-22-2022 Miscellaneous Notes* Telephone Encounter - [...] comply. Denisha Duarte RN documented in this encounterLakehealth Tripoint Medical Center12-20-2022 Miscellaneous Notes* Telephone Encounter - Yasmin Sargent - 10/09/2022 11:56 AM EST Spoke with the patient confirmed noon arrival time for 1 pm appointment at [facility] Yasmin Sargent documented in this encounterLakehealth Tripoint Medical Center12-19-2022 History and physical note * Hang Sarabia MD - 10/08/2022 2:46 PM EST VIRTUAL VISIT PROGRESS NOTE This is a virtual visit using [employer] video visit. It required patient-provider interaction for [...] no recent change in weight HEENT: denies SUÁREZ, change in hearing or vision, no other [...] which included preparing to see the patient, zjso-de-mfge patient care, completing clinical documentation, obtaining and/or reviewing separately obtained history, performing a medically appropriate examination, counseling and educating the pat ient/family/caregiver, ordering medications, tests, or procedures, communicating with other HCPs (not separately reported), independently interpreting results (not separately reported), communicatingresults to the patient/family/caregiver, and care coordination (not separately reported) Hang Sarabia MD October 08, 2022 3:54 PM documented in this encounterLakehealth Tripoint Medical Center12-19-2022 History of Present illness Narrative* Dania Key MD - 10/08/2022 11:56 AM EST Radiation Oncology - On Treatment Review (OTR) Note PATIENT NAME: Mervat Grayson PATIENT DIAGNOSIS: Adenocarcinoma of the lower rectum MRI staged [id number] COURSE: definitive and concurrent chemotherapy Current dose: [...] prescribed. Dania Key MD documented in this encounterLakehealth Tripoint Medical Center12-19-2022 Nurse Note* Orin Kolb - 10/08/2022 11:23 AM EST EKG performed as ordered. Electronically sent to [facility] main. Placed paper copy in scan folder. Orin KolbJAJA documented in this encounterLakehealth Tripoint Medical Center12-16-2022 Miscellaneous Notes* Telephone Encounter - Nasrin Tamayo [...] I assume he could get done [facility] for [facility]. [facility] [...] you! Denisha Duarte RN documented in this encounterLakehealth Tripoint Medical Center12-16-2022 History of Present illness Narrative* Collette Cespedes [...] MD 2022 9:09 AM documented in this encounterLakehealth Tripoint Medical Center12-16-2022 Miscellaneous Notes* Telephone Encounter - Denisha Duarte RN - 2022 9:27 AM EST Pt calls to ask if his Xeloda is ready for pear picker. States that he has not heard from pharmacy. Informed pt that he can pear picker his script today. Pharmacy hours reviewed. Apologized for missed notification. Pt verbalizes understanding and will be in today. Denisha Duarte RN documented in this encounterLakehealth Tripoint Medical Center12-13-2022 Miscellaneous Notes* Telephone Encounter - Denisha Duarte RN - 10/02/2022 4:28 PM EST Patient started/will start taking Capecitabine on 10/08/22. Denisha Duarte RN documented in this encounterLakehealth Tripoint Medical Center12-13-2022 History of Present illness Narrative* [...] Information handout: Capecitabine, Specialty Pharmacy Information : [facility], and Specialty Pharmacy phone numbers: Yes [...] minutes Denisha Duarte RN documented in this encounterLakehealth Tripoint Medical Center12-13-2022 History of Present illness Narrative* Minerva Adnerson MD - 10/02/2022 8:13 AM EST PATIENT [...] swelling, and atrophy. 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 Few nonenlarged 2 to 3 mm mesorectal lymph nodes. No suspicious lymphadenopathy. 09/11/2022 CT chest, abdomen, pelvis ([facility]) Possible low-attenuation lesion right hepatic lobe [...] Minerva Anderson MD CC: Dr. Thalia Troy ([facility] Colorectal Surgery) documented in this encounterLakehealth Tripoint Medical Center12-12-2022 Miscellaneous Notes* Telephone Encounter - Denisha Duarte RN - 10/01/2022 5:19 PM EST Pt will be starting chemo/xrt on 10/08. Scripts for antiemetics pended. Denisha Duarte RN documented in this encounterLakehealth Tripoint Medical Center12-09-2022 Miscellaneous Notes* Telephone Encounter - [...] Marin. Re Alvarez LPN documented in this encounterLakehealth Tripoint Medical Center12-07-2022 Miscellaneous Notes* Telephone Encounter - DAI Carrington - 09/26/2022 1:56 PM EST SOCIAL WORK FOLLOW UP NOTE: [facility] Date of service:09/26/22 Mervat Tim Grayson is being seen for a follow [...] as appropriate. DARYA Carrington documented in this encounterLakehealth Tripoint Medical Center12-07-2022 Miscellaneous Notes* Telephone Encounter - Re Alvarez LPN - 09/26/2022 9:11 AM EST I notified Michael of his rescheduled new start for 10/08/22 at 12:45. He states he has a MRI 10/01/22 and I reminded him of his follow up with Dr. Anderson 10/02/22. He denies questions at this time. Re Alvarez LPN documented in this encounterLakehealth Tripoint Medical Center12-06-2022 Miscellaneous Notes* Telephone Encounter - Denisha Duarte RN - 09/25/2022 1:57 PM EST Update: Pt's XRT to start on 10/08. MRI scheduled @ [facility] on 10/01. Pt [...] office the rest of the week? Denisha Duarte, RN documented in this encounterLakehealth Tripoint Medical Center12-06-2022 History of Present illness Narrative* Hoa Owen, RD - 09/25/2022 1:51 PM EST Oncology [...] day include coffee, herbal tea, diet dr cory, and diet sprite. Discussed with pt importance [...] no changes reported, weight stable per patient [place] Body Weight: 79.9kg Estimated kilocalorie needs: 5897-5680 kilocalories determined by 25-30 kcal/kg Estimated protein needs: 80-96 grams determined by 1.0-1.2 g/kg [place] weight Estimated fluid needs: ~0202-1453 milliliters based on 1 mL per kcal [...] Owen MS, RDN, LD documented in this encounterLakehealth Tripoint Medical Center12-06-2022 History of Present illness Narrative* Denisha Allen RT(R) - 09/25/2022 12:15 PM EST RADIOLOGY SERVICE PROGRESS NOTE SERVICE DATE: 09/25/2022 SERVICE TIME: 12:26 PM PATIENT IDENTITY VERIFICATION COMPLETED USING TWO (2) STANDARD IDENTIFIERS: Name and Date of confirmed by patient verbally POST EXAM PIV STATUS: Discontinued PROCEDURE TYPE: NM INJECT: PET/CT BODY SCAN. 14.4 mCi F18 FDG. No other medications given.. ADMINISTRATION TIME: 1214 PATIENT DISCHARGED TO: Ambulatory patient, left [place] department area. A Diagnostic radioactive procedure has taken place, with no further precautions necessary other than routine body substance precautions. More information regarding radiation safety can be found usingthis link: [email or web address] SIGNATURE: INNA Mcclain) PATIENT NAME: Mervat Grayson DATE: September 25, 2022 TIME: 12:26 PM PAGER/CONTACT #: documented in this encounterLakehealth Tripoint Medical Center12-05-2022 Miscellaneous Notes* Telephone Encounter - [...] scan is scheduled for 09-25-22 MRI at [facility] not until 10-11-22. Just want to confirm that you want to see the patient back the week of 10-01. Thank you for your help. documented in this encounterLakehealth Tripoint Medical Center12-05-2022 History of Present illness Narrative* Dania Key MD - 09/24/2022 12:00 AM EST MERVAT GRAYSON [id number] 09/24/2022 [facility] Department of Radiation Oncology Treatment Planning Note [...] and/or ports and DVH. documented in this encounterLakehealth Tripoint Medical Center12-01-2022 Nurse Note* Sonam Horowitz RN - 09/20/2022 8:53 AM EST Radiation Therapy - Patient Education Note PATIENT NAME: Mervat Grayson PATIENT September 20, 2022 [facility] FACILITY/LOCATION: [facility] READINESS TO LEARN Cognitive Ability: Alert and [...] by: Sonam Horowitz RN documented in this encounterLakehealth Tripoint Medical Center12-01-2022 History of Present illness Narrative* G Saeed Key MD - 09/20/2022 7:46 AM EST Radiation Oncology - New Patient/Consult Note PATIENT NAME: Mervat Grayson PATIENT REQUESTING PROVIDER: .Dr. Anderson DIAGNOSIS: Rectal cancer ,adenocarcinoma of the lower rectum MRI staged [id number] HPI: 71 year old male who presents [...] 30% circumferential involvement. Patient was seen by [facility] colorectal surgery, Dr. Troy. He underwent [...] ,adenocarcinoma of the lower rectum MRI staged [id number] Patient is still undergoing staging. He has [...] Dania Key MD cc: Lorenzo Marin [address] [facility] [address] [place] [address] Minerva Anderson ([facility]) [address] [place] [address] [place] [id number] documented in this encounterLakehealth Tripoint Medical Center11-29-2022 Miscellaneous Notes* Telephone Encounter - Lucy Hampton Sec - 09/18/2022 12:[address] Cortes from [facility] called regarding patient please call at your convience thanks [phone] documented in this encounterLakehealth Tripoint Medical Center11-28-2022 History of Present illness Narrative* [...] confirmed adenocarcinoma. The patient was referred to [facility] colorectal surgery (Dr. Troy) for further [...] colorectal cancer. 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 MEDICATIONS: Current Outpatient Medications Medication Sig ELIQUIS [...] swelling, and atrophy. PATHOLOGY: 08/20/2022 Colonoscopic biopsy ([facility]) Adenocarcinoma of colon (mass at anal verge) Mismatch repair gene -normal expression RADIOLOGY/OTHER STUDIES: 09/11/2022 MRI pelvis ([facility]) Low rectal neoplasm with suspected early invasion of the internal anal sphincter at the upper canal(MRI category T3b, N0). Few nonenlarged 2 to 3 mm mesorectal lymph nodes. No suspicious lymphadenopathy. 09/11/2022 CT chest, abdomen, pelvis ([facility]) Possible low-attenuation lesion right hepatic lobe [...] scan and abdominal MRI to be done [facility]. We will refer to radiation oncology to [...] Minerva Anderson MD CC: Dr. Mervat Slaughter ([facility] Surgery); Dr. Thalia Troy ([facility] Colorectal Surgery) documented in this encounterLakehealth Tripoint Medical Center11-18-2022 Miscellaneous Notes* Telephone Encounter - [...] and MRI Saturday09/11/22 at 11:30 am at [facility]. PSS: Please call and schedule pt for follow up with Dr. Anderson. Please give it a couple days between CT and MRI so we have reports back from [place]. Thanks you! Lauren Murrell RN * Telephone [...] recently diagnosed with adenocarcinoma of rectum at [facility], by Dr Thalia Troy. Pt has [...] you, Minal Corey RN documented in this encounterLakehealth Tripoint Medical Center11-16-2022 NoteSubjective Patient ID: Mervat Grayson is a [...] Referral Reason: Specialty Services Required Referral Location: [facility] Requested Specialty: Oncology Number of Visits Requested: 1 Will get CEA today and will have MRI and CT scans soon. Once staging is complete we will discuss plan. No results found for this or any previous visit (from the past 36 hour(s)). No follow-ups on file.[facility]11-02-2022 Note Attestation signed by Thalia Troy MD [...] evaluated at [facility] on 08/20/22 via flexible sigmoidoscopy demonstrating a [...] the past 36 hour(s)). No follow-ups on file.[facility]10-31-2022 Evaluation + Plan noteExtracted from: Title:Post-anesthesia - General Author:Jose Sevilla DO Date:08/20/22 Plan Transfer/ Discharge: Condition stable. Extracted from: Title:Pre-anesthesia - Endoscopy Author:Jose Birmingham Jr., DO Date:08/20/22 Plan [place] [employer] Anesthesiologists (ASA) physical status classification: Class III. Anesthetic Preoperative Plan Anesthesia: General. . Anesthetic plan, risks, benefits, and alternatives discussed with the patient and/or family. Patient verbalized understanding. Future Appointments Appointment Date:09/27/2022 01:00:00 PM Scheduled Provider:ASHLEY TRINIDAD PA-C Location:[facility] Appointment Type:URO Office Visit Appointment Date:10/03/2022 01:15:00 PM Scheduled Provider:Santiago Kong MD [facility] Type:Cardiology Follow Up (FT) Future Scheduled Tests Laboratory* PSA Total 09/28/21 Radiology* XR Abdomen 1 View 09/20/22 [facility]10-25-2022 Hospital Discharge instructions Follow Up Care 08/14/2022 09:27:21 With:Mervat SLAUGHTER Address: [address] [place] [address], [facility] [address] [phone] Business (1) When:3 to 5 days [facility]08-11-2022 Hospital Discharge instructions Patient Education [...] frozen fruits, and frozen vegetables. Avoid buying ubtlj-xu-epo foods, such as pre-cut fruits and vegetables [...] 06/10/2015 Document Revised: 10/08/2018 Document Reviewed: 10/08/2018 [employer] Patient Education 2020 [employer]. 05/31/2022 13:03:45 BMI for Adults BMI for [...] height. This can be done either in Maltese ([place] or metric measurements. Note that charts are available to help you find your BMI quickly and easily without having to do these calculations yourself. To calculate your BMI in Maltese ([place] measurements, your health care provider will: [...] medical problems. BMI can be measured using Maltese measurements or metric measurements. To interpret your [...] 06/18/2005 Document Revised: 09/19/2018 Document Reviewed: 08/20/2018 [employer] Patient Education 2020 [employer] 05/31/2022 13:03:43 Dizziness Dizziness Dizziness is [...] balance is fine. If you need to testing and regulating chief one place for a long time, move [...] Watch your dizziness for any changes. Take nmzm-txd-nkadxoz and prescription medicines only as told by [...] 04/02/2002 Document Revised: 10/10/2018 Document Reviewed: 11/09/2017 [employer] Patient Education 2020 [employer]. 05/31/2022 13:03:39 Hypotension Hypotension As your heart [...] standing up suddenly after eating. Medicines Take npbw-sns-bvomevk and prescription medicines only as told by [...] 10/07/2006 Document Revised: 04/02/2019 Document Reviewed: 04/02/2019 [employer] Patient Education 2020 [employer]. Follow Up Care 05/30/2022 10:32:48 With:ALEJANDRA JESSICAVALERIE Address: [address] [place] [address] [place] [phone] When:7 to 10 days only if needed [facility] [place] 11-26-2021 Hospital Discharge instructions Follow Up Care 09/15/2021 11:43:54 With:Santiago Kong MD Address: When:6 months Comments:Call for sooner apt with new/worsening symptoms [facility]06-14-2021 NotePROCEDURE: XR FOOT LT MIN [...] Electronically authenticated by: SHANTEL COPELAND Date: 2021-04-03 13:38[facility]01-25-2020 Evaluation + Plan note Future Appointments Appointment Date:11/09/2022 03:00:00 PM Scheduled Provider: Location:[facility] Appointment Type:CV Echo (FT) Appointment Date:11/14/2022 01:45:00 PM Scheduled Provider:Santiago Kong MD [facility] Appointment Type:Cardiology Follow Up (FT) Future Scheduled Tests Radiology* XR Abdomen 1 View 09/20/22 * Echo Transthoracic Complete 11/09/22 [facility] evaluation + Plan note Future Appointments Appointment Date:04/03/2022 11:30:00 AM Scheduled Provider: [facility] Appointment Type:Cardiology Follow Up (FT) Appointment Date:06/21/2022 09:00:00 AM Scheduled Provider:Edward Kaufman DO [facility] Type:ONC Office Visit 15 (FT) Appointment Date:09/27/2022 01:00:00 PM Scheduled Provider:ASHLEY TRINIDAD PA-C [facility] Office Visit Future Scheduled Tests Laboratory* PSA Total 09/28/21 Radiology* XR Abdomen 1 View 09/20/22 [facility] Future Appointments Appointment Date:06/21/2022 09:00:00 AM Scheduled Provider:Edward Kaufman DO [facility] Type:ONC Office Visit 15 (FT) Appointment Date:09/27/2022 01:00:00 PM Scheduled Provider:ASHLEY TRINIDAD PA-C [facility] Type:URO Office Visit Appointment Date:10/03/2022 01:15:00 PM Scheduled Provider:Santiago Kong MD [facility] Type:Cardiology Follow Up (FT) Future Scheduled Tests Laboratory* PSA Total 09/28/21 Radiology* XR Abdomen 1 View 09/20/22 [facility] Future Appointments Appointment Date:08/28/2022 12:00:00 PM Scheduled Provider:Libia Watson CNP Location:[facility] Health Appointment Type:BADH Screening Appointment Date:09/27/2022 01:00:00 PM Scheduled Provider:ASHLEY TRINIDAD PA-C [facility] Type:URO Office Visit Appointment Date:10/03/2022 01:15:00 PM Scheduled Provider:Santiago Kong MD [facility] Type:Cardiology Follow Up (FT) Future Scheduled Tests Laboratory* PSA Total 09/28/21 Radiology* XR Abdomen 1 View 09/20/22 [facility] Future Appointments Appointment Date:08/20/2022 07:30:00 AM Scheduled Provider: Steffi:[facility] Surgical Services Appointment Type:Surgery FT Appointment Date:09/27/2022 01:00:00 PM Scheduled Provider:ASHLEY TRINIDAD PA-C [facility] Type:URO Office Visit Appointment Date:10/03/2022 01:15:00 PM Scheduled Provider:Santiago Kong MD [facility] Type:Cardiology Follow Up (FT) Future Scheduled Tests Laboratory* PSA Total 09/28/21 Radiology* XR Abdomen 1 View 09/20/22 [facility] General Surgery [place] Evaluation + Plan note Future Appointments Appointment Date:10/17/2022 01:00:00 PM Scheduled Provider:ASHLEY TRINIDAD PA-C Location:[facility] Appointment Type:URO Office Visit Appointment Date:11/14/2022 01:45:00 PM Scheduled Provider:Santiago Kong MD [facility] Type:Cardiology Follow Up (FT) Future Scheduled Tests Radiology* XR Abdomen 1 View 09/20/22 * Echo Transthoracic Complete 10/03/22 [facility] Future Appointments Appointment Date:01/22/2023 03:30:00 PM Scheduled Provider:Santiago Kong MD [facility] Type:Cardiology Follow Up (FT) Future Scheduled Tests Radiology* XR Abdomen 1 View 09/20/22 [facility] Future Appointments Appointment Date:04/29/2023 08:45:00 AM Scheduled Provider:Joanne SANCHEZ CNP [facility] Type:Cardiology Follow Up (FT) Future Scheduled Tests Radiology* XR Abdomen 1 View 09/20/22 [facility] note Future Appointments Appointment Date:05/07/2023 01:30:00 PM Scheduled Provider:Bryon Cruz MD [facility] Appoint[facility] Type:Pain Management - New (FT) Future Scheduled Tests Radiology* XR Abdomen 1 View 09/20/22 [facility] Future Appointments Appointment Date:07/05/2023 10:30:00 AM Scheduled Provider: Location:.[facility] [place] Appointment Type:PT Re-Eval 45 (FT) Appointment Date:07/09/2023 07:00:00 AM Scheduled Provider: [facility] [place] Appoint[facility] Type:PT 45 (FT) [...] Tests Radiology* XR Abdomen 1 View 09/20/22 [facility] Future Appointments Appointment Date:11/01/2023 01:45:00 PM Scheduled Provider:Santiago Kong MD Location:.[facility] Appointment Type:Cardiology Follow Up (FT) Future Scheduled Tests Radiology* XR Abdomen 1 View 09/20/22 [facility] Future Appointments Appointment Date:02/14/2024 09:30:00 AM Scheduled Provider:Corey SINGLETON MD Location:[facility] Appointment Type:URO Office Visit Appointment Date:09/10/2024 08:00:00 AM Scheduled Provider:Santiago Kong MD Location[facility] Appointment Type:Cardiology Follow Up (FT) Future Scheduled Tests Laboratory* B-Type Natriuretic Peptide 11/01/23 * Basic Met[facility] Future Appointments Appointment Date:09/10/2024 08:00:00 AM Scheduled Provider:Santiago Kong MD Location:[facility] Appointment Type:Cardiology Follow Up (FT) Appointment Date:02/15/2025 08:45:00 AM Scheduled Provider:Corey SINGLETON MD Location:[facility] Appointment Type:URO Office Visit Future Scheduled Tests Laboratory* B-Type Natriuretic Peptide 11/01/23 * Basic Metabolic Panel 11/01/23 [facility] Evaluation + Plan note Future Appointments Appointment Date:02/15/2025 08:45:00 AM Scheduled Provider:Corey SINGLETON MD Location:[facility] Appointment Type:URO Office Visit Appointment Date:03/10/2025 08:00:00 AM Scheduled Provider:Pato Peña PA-C Location:[facility] Appointment Type:Cardiology Follow Up (FT) Future Scheduled Tests Laboratory* B-Type Natriuretic Peptide 11/01/23 * Basic Metabolic Panel 11/01/23 Radiology* Echo Transthoracic Complete 01/10/25 [facility] evaluation + Plan note Future Appointments Appointment Date:05/23/2023 08:30:00 AM Scheduled Provider: Location:[place] Appointment Type:PT Eval (FT) Future Scheduled Tests Radiology* XR Abdomen 1 View 09/20/22 [facility] Future Appointments Appointment Date:02/15/2025 08:45:00 AM Scheduled Provider:Corey SINGLETON MD Location:[facility] Appointment Type:URO Office Visit Appointment Date:03/10/2025 08:00:00 AM Scheduled Provider:Pato Peña PA-C Location:[facility] Appointment Type:Cardiology Follow Up (FT) [facility] evaluation + Plan note Future Appointments Appointment Date:09/08/2025 08:00:00 AM Scheduled Provider:Pato Peña PA-C Location:[facility] Appointment Type:Cardiology Follow Up (FT) Future Scheduled Tests Laboratory* PSA Total 02/15/25 Radiology* XR Abdomen 1 View 02/15/25 [facility] evaluation note* Diagnosis Rectal cancer (HCC)- Primary Malignant neoplasm of rectum Rheumatoid arthritis involving multiple sites, unspecified whether rheumatoid factor present (HCC) documented in this encounter [facility] note* Diagnosis Rectal adenocarcinoma (HCC)- Primary Malignant neoplasm of rectum documented in this encounter [facility] note* Diagnosis Rectal adenocarcinoma (HCC)- Primary Malignant neoplasm of rectum documented in this encounter [facility] note* Diagnosis Rectal adenocarcinoma (HCC)- Primary Malignant neoplasm of rectum documented in this encounter [facility] noteNo assessment information availableFirecorses Regional [facility] Work Phone: Evaluation note* Diagnosis Rectal cancer (HCC)- Primary Malignant neoplasm of rectum Abnormal PET scan of lung Nonspecific abnormal results of pulmonary system function study [facility] Diagnosis Adenopathy- Primary Enlargement of lymph nodes Adenopathy Enlargement of lymph nodes [facility] Adenopathy Enlargement of lymph nodes Adenopathy Enlargement of lymph nodes [facility] Diagnosis Rectal adenocarcinoma (HCC)- Primary Malignant neoplasm of rectum Adenopathy Enlargement of lymph nodes [facility] Diagnosis Adenopathy- Primary Enlargement of lymph nodes Rectal adenocarcinoma (HCC) Malignant neoplasm of rectum Rheumatoid arthritis involving multiple sites, unspecified whether rheumatoid factor present (HCC) Adenopathy Enlargement of lymph nodes [facility] Diagnosis Rectal cancer (HCC)- Primary Malignant neoplasm of rectum Pulmonary embolus with infarction (HCC) Other pulmonary embolism and infarction [facility] Diagnosis Rectal adenocarcinoma (HCC)- Primary Malignant neoplasm of rectum [facility] Diagnosis Rectal adenocarcinoma (HCC)- Primary Malignant neoplasm of rectum [facility] Diagnosis Rectal adenocarcinoma (HCC) Malignant [...] neoplasm of [facility]um [facility] Diagnosis Neoplasm related pain (acute) (chronic)- [...] of rectum [facility] Diagnosis Rectal cancer (HCC)- Primary Malignant neoplasm of rectum Malignant neoplasm of rectum (HCC) Malignant neoplasm of rectum [facility] Diagnosis Rectal cancer (HCC)- Primary Malignant neoplasm of rectum Acute deep vein thrombosis (DVT) of distal vein of left lower extremity (HCC) [facility] Diagnosis Rectal cancer (HCC)- Primary Malignant neoplasm of rectum [facility] Diagnosis Rectal cancer (HCC) Malignant neoplasm of rectum [facility] Diagnosis Rectal cancer (HCC)- Primary Malignant neoplasm of rectum [facility] Diagnosis Rectal cancer (HCC)- Primary Malignant neoplasm of rectum [facility] Diagnosis Rectal cancer (HCC)- Primary Malignant neoplasm of rectum [facility] Diagnosis Rectal cancer (HCC) Malignant neoplasm of rectum Primary hypercoagulable state (HCC) Primary hypercoagulable state Rheumatoid arthritis involving multiple sites, unspecified whether rheumatoid factor present (HCC) [facility] Diagnosis Rectal cancer (HCC)- Primary Malignant neoplasm of rectum Malignant neoplasm of prostate (HCC) Malignant neoplasm of prostate [facility] Diagnosis Rectal cancer (HCC)- Primary Malignant neoplasm of rectum [facility] Diagnosis Rectal cancer (HCC)- Primary Malignant neoplasm of rectum Primary hypercoagulable state (HCC) Primary hypercoagulable state Rheumatoid arthritis involving multiple sites, unspecified whether rheumatoid factor present (HCC) [facility] Diagnosis Rectal cancer (HCC)- Primary Malignant neoplasm of rectum [facility] Diagnosis Rectal cancer (HCC) Malignant neoplasm of rectum [facility]* Diagnosis Encounter for follow-up surveillance of rectal cancer- Primary Unspecified follow-up examination Malignant neoplasm of rectum (HCC) Malignant neoplasm of rectum [facility] Diagnosis Neoplasm related pain (acute) (chronic) [facility]* Diagnosis Hypokalemia- Primary Hypopotassemia documented [...] Unspecified follow-up examination [facility]* Diagnosis Encounter for follow-up surveillance of rectal cancer Unspecified follow-up examination [facility]* Diagnosis Malignant neoplasm of rectum (HCC) Malignant neoplasm of rectum [facility] Diagnosis Malignant neoplasm of rectum (HCC) Malignant neoplasm of rectum [facility] Diagnosis Malignant neoplasm of rectum (HCC) Malignant neoplasm of rectum [facility] Diagnosis Lung nodules Other nonspecific abnormal finding of lung field Rectal cancer (HCC) Malignant neoplasm of rectum [facility]* Diagnosis Rectal cancer (HCC) Malignant neoplasm of rectum [facility]* Diagnosis Encounter for follow-up surveillance of rectal cancer- Primary Unspecified follow-up examination [facility]* Diagnosis Rectal cancer (HCC) Malignant neoplasm of rectum Encounter for follow-up surveillance of rectal cancer Unspecified follow-up examination [facility]* Diagnosis Diarrhea of presumed infectious origin- Primary Chills Chills (without fever) Infection in abdomen (HCC) Unspecified peritonitis Infection in abdomen (HCC) Unspecified peritonitis Chills Chills (without fever) [facility]* Diagnosis Infection in abdomen (HCC) Unspecified peritonitis Chills Chills (without fever) [facility]* Diagnosis Abscess- Primary Cellulitis and abscess of unspecified site Abscess Cellulitis and abscess of unspecified site [facility]* Diagnosis Malignant neoplasm of rectum (HCC) Malignant neoplasm of rectum [facility]* Diagnosis Encounter for change or removal of drains- Primary Other specified aftercare following surgery [facility]* Diagnosis Abscess- Primary Cellulitis and abscess of unspecified site Abscess Cellulitis and abscess of unspecified site [facility]* Diagnosis Malignant neoplasm of rectum (HCC)- Primary Malignant neoplasm of rectum [facility]* Diagnosis Encounter for change or removal of drains- Primary Other specified aftercare following surgery [facility]* Diagnosis Sleep apnea, unspecified type documented in this encounter [facility] note* Diagnosis Right foot pain- Primary Pain in soft tissues of limb Right ankle tendonitis documented in this encounter [facility] note* Diagnosis Bacterial folliculitis- Primary Other specified disease of hair and hair follicles Seborrheic keratosis Inflamed seborrheic keratosis Acrochordon Unspecified hypertrophic and atrophic condition of skin Neoplasm of unspecified behavior of bone, soft tissue, and skin Pain Generalized pain documented in this encounter [facility] note* Diagnosis Malignant neoplasm of rectum (HCC) Malignant neoplasm of rectum documented in this encounter [facility] note* Diagnosis Intra-abdominal and pelvic swelling, mass and lump, unspecified site- Primary Malignant neoplasm of rectum (HCC) Malignant neoplasm of rectum Intra-abdominal and pelvic swelling, mass and lump, unspecified site Malignant neoplasm of rectum (HCC) Malignant neoplasm of rectum documented in this encounter [facility] note* Diagnosis Intra-abdominal and pelvic swelling, mass and lump, unspecified site Malignant neoplasm of rectum (HCC) Malignant neoplasm of rectum documented in this encounter [facility] note* Diagnosis Encounter for follow-up surveillance of rectal cancer Unspecified follow-up examination documented in this encounter [facility] note* Diagnosis Malignant neoplasm of rectum (HCC)- Primary Malignant neoplasm of rectum documented in this encounter [facility] note* Diagnosis Malignant neoplasm of rectum (HCC)- Primary Malignant neoplasm of rectum Right lower quadrant abdominal pain Abdominal pain, right lower quadrant documented in this encounter [facility] note* Diagnosis Malignant neoplasm of rectum (HCC)- Primary Malignant neoplasm of rectum documented in this encounter [facility] note* Diagnosis Right lower quadrant abdominal pain Abdominal pain, right lower quadrant documented in this encounter [facility] note* Diagnosis Malignant neoplasm of rectum (HCC) Malignant neoplasm of rectum Rectal cancer (HCC) Malignant neoplasm of rectum documented in this encounter [facility] note* Diagnosis RLQ abdominal pain- Primary Abdominal pain, right lower quadrant S/P right colectomy Other postprocedural status Intra-abdominal abscess (HCC) Peritoneal abscess 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, excluding rectum and anus [facility]* Diagnosis Malignant neoplasm of rectum (HCC) Malignant neoplasm of rectum [facility]* Diagnosis Malignant neoplasm of rectum (HCC)- Primary Malignant neoplasm of rectum Right lower quadrant abdominal abscess (HCC) Peritoneal abscess [facility]* Diagnosis Encounter for follow-up surveillance of rectal cancer- Primary Unspecified follow-up examination [facility]* Diagnosis Onset Date Resolution Status Admit Date Family history of colon cancer acute March 18, 2025 12:56pm Hemorrhoids acute March 18 12:56pm [facility] Work Phone: Evaluation note* Diagnosis BRBPR (bright red blood per rectum)- Primary Hemorrhage of rectum and anus [facility]* Diagnosis Malignant neoplasm of rectum (HCC)- Primary Malignant neoplasm of rectum Rheumatoid arthritis involving multiple sites, unspecified whether rheumatoid factor present (HCC) Primary hypercoagulable state (HCC) Primary hypercoagulable state [facility]* Diagnosis Right elbow pain- Primary Pain in joint, upper arm Effusion of right elbow Arthritis of right elbow [facility]* Diagnosis Malignant neoplasm of rectum (HCC)- Primary Malignant neoplasm of rectum documented in this encounter [facility] general Narrative - Reported* Type Description Date Medical History Rheumatoid arthritis Medical History osteoarthitis Medical History Vericose veins Medical History hypertension Medical History H/O dVT / PE 2018 Medical History colon cancer Medical History cataracts Medical History kidney stones Medical History pneumonia Surgical History c-spine Fusion x2 - dr marcum 2012 Surgical History B/L venous ablation 2007 Surgical History 7 lithotripsies - Dr. Singleton Surgical History (l) foot, 2nd toe dudley int replacement - dr. Stevens Surgical History B/l Cataracts Late 2018 Hospitalization History see surg [facility]UonGo Other Hospital course Narrative No data available for this section [facility] No data available for this section [facility] No data available for this section [facility] (narrative)* Outpatient Procedure (Routine) - Authorized Specialty Diagnoses / Procedures Referred By Rosanne t Referred To [facility] Diagnoses Adenopathy Procedures ECG COMPLETE ECG ROUTINE ECG W/LEAST 12 LDS W/I&R Hang Sarabia MD [address] [place] [address] [facility] [place] [address] Referral ID Status Reason Start Date Expiration Date Visits Requested Visits Authorized [id number] Authorized Auto-Generat ed Referral 2023 1 1 [facility] for referral (narrative)* Diagnostic Procedure Only (Routine) - Pending Review Specialty Diagnoses / Procedures Referred By Contac t Referred To Contact [facility] IMAGING Diagnoses Leg swelling Procedures US DVT LOWER LEFT DUP-SCAN XTR VEINS UNILATERAL/LIMITED STUDY Andree Hollis, [employer] [address] [place] [address] [place] [address] Us Imaging Referral ID Status Reason Start Date Expiration Date Visits Requested Visits Authorized [id number] Pending Review Auto-Generat ed Referral 01/22/2023 02/21/2024 1 1 [facility] for referral (narrative)* Outpatient Procedure (Routine) - Pending Review Specialty Diagnoses / Procedures Referred By Contac t Referred To Contact [facility] Diagnoses Encounter for follow-up surveillance of rectal cancer Procedures SIGMOIDOSCOPY SIGMOIDOSCOPY FLX DX W/COLLJ SPEC BR/[place] [address] [address] [place] [address] [facility] [place] [address] [place] [id number] Referral ID Status Reason Start Date Expiration Date Visits Requested Visits Authorized [id number] Pending Review Auto-Generat ed Referral 07/24/2023 07/24/2024 1 1 [facility] for referral (narrative)* Outpatient Procedure (Routine) - Closed Specialty Diagnoses / Procedures Referred By Contac t Referred To Contact [facility] Diagnoses Encounter for follow-up surveillance of rectal cancer Procedures SIGMOIDOSCOPY SIGMOIDOSCOPY FLX DX W/COLLJ SPEC BR/[place] [address] [facility] [address] [address] Referral ID Status Reason Start Date Expiration Date V isits Requested Visits Authorized [id number] Closed Auto-Generate d Referral 05/03/2023 05/03/2024 1 1 T [facility] for referral (narrative)* Outpatient Procedure (Routine) - Closed Specialty Diagnoses / Procedures Referred By Contac t Referred To Contact [facility] Diagnoses Rectal cancer (HCC) Procedures COLONOSCOPY DIAGNOSTIC COLONOSCOPY FLX DX W/[place] [address] [address] Referral ID Status Reason Start Date Expiration Date V isits Requested Visits Authorized [id number] Closed Auto-Generate d Referral 02/07/2023 02/08/2024 1 1 [facility] for referral (narrative)* Outpatient Procedure (Routine) - Closed Specialty Diagnoses / Procedures Referred By Contac t Referred To Contact [facility] Diagnoses Encounter for follow-up surveillance of rectal cancer Procedures SIGMOIDOSCOPY SIGMOIDOSCOPY FLX DX W/COLLJ SPEC BR/[place] [address] [address] Referral ID Status Reason Start Date Expiration Date V isits Requested Visits Authorized [id number] Closed Auto-Generate d Referral 02/04/2024 11/05/2024 1 1 [facility] for referral (narrative)* Outpatient Procedure (Routine) - New Request Specialty Diagnoses / Procedures Referred By Contac t Referred To Contact [facility] Diagnoses Encounter for follow-up surveillance of rectal cancer Procedures COLONOSCOPY SCREENING COLONOSCOPY FLX DX W/[place] [address] [address] [place] [address] [facility] [address] [address] Referral ID Status Reason Start Date Expiration Date Visits Requested Visits Authorized [id number] New Request Auto-Generat ed Referral 05/19/2024 05/19/2025 1 1 [facility] for referral (narrative)* Diagnostic Procedure Only (Routine) - Closed Specialty Diagnoses / Procedures [facility] Diagnoses Rectal cancer (HCC) Procedures NM PET/CT SKULL-THIGH INITIAL PET IMAGING CT ATTENUATION SKULL BASE MID-THIGH Minerva Anderson MD [address] [place] [address] [place] [address] [facility] [address] [place] [address] Referral ID Status Reason Start Date Expiration Date V isits Requested Visits Authorized [id number] Closed Auto-Generate d Referral 09/17/2022 10/17/2023 1 1 [facility] for referral (narrative)* Outpatient Procedure (Routine) - New Request Specialty Diagnoses / Procedures Referred By Contac t Referred To [facility] Diagnoses Encounter for follow-up surveillance of rectal cancer Procedures SIGMOIDOSCOPY SIGMOIDOSCOPY FLX DX W/COLLJ SPEC BR/[place] [address] [address] [facility] [address] [place] [address] [facility] [address] [address] Referral ID Status Reason Start Date Expiration Date Visits Requested Visits Authorized [id number] New Request Auto-Generat ed Referral 07/21/2024 07/21/2025 1 1 [facility] for referral (narrative)* Outpatient Procedure (Routine) - Closed Specialty Diagnoses / Procedures Referred By Contac t Referred To Contact [facility] Diagnoses Encounter for follow-up surveillance of rectal cancer Procedures COLONOSCOPY SCREENING COLONOSCOPY FLX DX W/[place] [address] [address] [place] [address] [place] [phone] Referral ID Status Reason Start Date Expiration Date V isits Requested Visits Authorized [id number] Closed Auto-Generate d Referral 05/19/2024 05/19/2025 1 1 [facility] for referral (narrative)* Outpatient Procedure (Routine) - Closed Specialty Diagnoses / Procedures Referred By Contac t Referred To [facility] Diagnoses Encounter for follow-up surveillance of rectal cancer Procedures SIGMOIDOSCOPY SIGMOIDOSCOPY FLX DX W/COLLJ SPEC BR/[place] [address] [facility] [address] [place] [address] [address] Referral ID Status Reason Start Date Expiration Date V isits Requested Visits Authorized [id number] Closed Auto-Generate d Referral 07/21/2024 07/21/2025 1 1 [facility] for visit Narrative* Outpatient Procedure (Routine) - Closed Specialty Diagnoses / Procedures Referred By Contac t Referred To Contact [facility] Diagnoses Adenopathy Procedures ECG COMPLETE ECG ROUTINE ECG W/LEAST 12 LDS W/I&[place] [address] [place], [place] [id number] [place] [id number] Referral ID Status Reason Start Date Expiration Date V isits Requested Visits Authorized [id number] Closed Auto-Generate d Referral 2022 2023 1 1 [facility] for visit Narrative* Outpatient Procedure (Routine) - Closed Specialty Diagnoses / Procedures Referred By Contac t Referred To Contact [facility] Diagnoses Encounter for follow-up surveillance of rectal cancer Procedures SIGMOIDOSCOPY SIGMOIDOSCOPY FLX DX W/COLLJ SPEC BR/[place] [address] [address] [place] [address] [address] Referral ID Status Reason Start Date Expiration Date V isits Requested Visits Authorized [id number] Closed Auto-Generate d Referral 05/03/2023 05/03/2024 1 1 [facility] [facility] for visit Narrative* Outpatient Procedure (Routine) - Closed Specialty Diagnoses / Procedures Referred By Contac t Referred To Contact [facility] Diagnoses Rectal cancer (HCC) Procedures COLONOSCOPY DIAGNOSTIC COLONOSCOPY FLX DX W/[place] [address] [address] [facility] [address] [place] [address] [address] Referral ID Status Reason Start Date Expiration Date V isits Requested Visits Authorized [id number] Closed Auto-Generate d Referral 02/07/2023 02/08/2024 1 1 [facility] for visit Narrative* Outpatient Procedure (Routine) - Closed Specialty Diagnoses / Procedures Referred By Contac t Referred To Contact [facility] Diagnoses Encounter for follow-up surveillance of rectal cancer Procedures SIGMOIDOSCOPY SIGMOIDOSCOPY FLX DX W/COLLJ SPEC [place] [address] [address] [facility] [address] [place] [address] [address] Referral ID Status Reason Start Date Expiration Date V isits Requested Visits Authorized [id number] Closed Auto-Generate d Referral 02/04/2024 11/05/2024 1 1 [facility] for visit Narrative* Outpatient Procedure (Routine) - Closed Specialty Diagnoses / Procedures Referred By Contac t Referred To Contact [facility] Diagnoses Encounter for follow-up surveillance of rectal cancer Procedures COLONOSCOPY SCREENING COLONOSCOPY FLX DX W/[place] [address] [address] [facility] [address] [place] [address] [address] Referral ID Status Reason Start Date Expiration Date V isits Requested Visits Authorized [id number] Closed Auto-Generate d Referral 05/19/2024 05/19/2025 1 1 [facility] for visit Narrative* Outpatient Procedure (Routine) - Closed Specialty Diagnoses / Procedures Referred By Rosanne engle Referred To Contact [facility] Diagnoses Encounter for follow-up surveillance of rectal cancer Procedures SIGMOIDOSCOPY SIGMOIDOSCOPY FLX DX W/COLLJ SPEC BR/[place] [address] [address] [facility] [address] [place] [address] [address] Referral ID Status Reason Start Date Expiration Date V isits Requested Visits Authorized [id number] Closed Auto-Generate d Referral 07/21/2024 07/21/2025 1 1 [facility] for visit Narrative* MRI/CT (Routine) - Closed Specialty Diagnoses / Procedures Referred By Rosanne engle Referred To Contact MR IMAGING Diagnoses Malignant neoplasm of rectum (HCC) Procedures MRI RECTUM WO/W IVCON MRI PELVIS W/O & W/CONTRAST MATERIAL Minerva Anderson MD [address] [place] [address] [place] [address] Phone: tel: fax: MR IMAGING [facility] Referral ID Status Reason Start Date Expiration Date V isits Requested Visits Authorized [id number] Closed Auto-Generate d Referral 12/07/2024 01/06/2026 1 1 [facility] Summary Purpose Family History No [...] US ABDOMEN COMPLETE Negar Pinedo MD [address] [place] [address] Referral ID Status Reason Start Date Expiration Date V isits Requested Visits Authorized [id number] Not Required - RTA 12/15/2024 12/15/2025 1 1 Specialty Diagnoses / Procedures Referred By Contac t Referred To Contact [facility] Diagnoses Sleep apnea, unspecified type Procedures Home Sleep Study Valerie Roberts, 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 - [employer] STORE BAGGER [address] [place] [address] Sleep, MD Ami [address] [place] [address] Referral ID Status Reason Start Date Expiration Date Visits Re quested Visits Authorized [id number] Open 08/20/2024 08/20/2025 1 1 Specialty Diagnoses / Procedures Referred By Contac t Referred To Contact CT IMAGING Diagnoses Infection in abdomen (HCC) Procedures CT ABD/PEL W IVCON CT ABD & PELVIS W/CONTRAST Celeste Andrews, 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.GROCERY STORE BAGGER [address] [address], [facility] [address] [place] [address] [place] [id number] Referral ID Status Reason Start Date Expiration Date V isits Requested Visits Authorized [id number] Closed Auto-Generate d Referral 08/13/2024 09/12/2025 1 1 Reason *FU 07/01 EMG bila t upper and lower extremities Diagnosis 1 Cervical stenosis of spine (M48.02) Referral Organization [facility] Ne urosurgery Referring Provider First Name Valencia Referring Provider Last Name Darin Referring Provider Specialty Nurse Wanda andrews Referred Organization [facility] Referred Provider Shantel Langston Referred Address [address] [facility] Referred Provider Specialty Neurology Referral Priority Routine General Notes Rika Shabazz 023 03:33:00 PM >Spoke with Dr. Cruz's office and Dr. Cruz does not them them or do they do them in their office. [facility] Central scheduling schedules them which she transferred me to Central Scheduling and they said that Dr. Langston comes in like twice a month and does them through [facility] but he is scheduled out to July. She said it would be better to send to his office Surekha Lopez 06/18/2023 03:46:05 PM > thank you for the letting me know, I was not aware that is the way they did it, can we update the referrals to go through [facility]? Rika Shabazz 06/19/2023 09:08:47 AM >OK, will [...] call patient to schedule. Referral was sent [facility] Clinical Notes Office [phone] Reason 05/07/23 @ 1:30pm evaluate and treat Diagnosis 1 Cervical radiculopat hy (M54.12) Referral Organization [facility] Ne urosurgery Referring Provider First Name Valencia Referring Provider Last Name Darin Referring Provider Specialty Nurse Wanda andrews Referred Organization [facility] Referred Provider Bryon Cruz Referred Address [address] [place] [place],[address] Referred Provider Specialty Pain Medicin e Referral Priority Routine Referral Appointment Date 2023-05-07 General Notes Rika Shabazz 023 10:03:13 AM >Received today. [facility] Pain Medicine 's office request us to fill out form and fax referral to them and they will review the referral and call patient. Referral was fax. Rika Shabazz 04/19/2023 09:24:32 AM >Spoke with Jonah at [facility] Pain Medicine 's office and patient has been scheduled for 05/07/23 @ 1:30pm Rika Shabazz 05/08/2023 11:42:50 AM >Spoke with Silvia at [facility] Pain Medicine office and patient was seen. She transferred me to [facility] Medical Records to get office notes Rika Shabazz 05/08/2023 11:46:09 AM >Spoke with Elba at [facility] Medical Records and she will fax the notes to us Rika Shabazz 05/08/2023 01:19:55 PM >Received consult notes Clinical Notes Office [phone] Reason 05/02/23 @ 2:00pm evaluate and treat - Left hip pain Diagnosis 1 Cervical radiculopat hy (M54.12) Referral Organization [facility] urosurgery Referring Provider First Name Valencia Referring Provider Last Name Darin Referring Provider Specialty Nurse Pract itione Referred Organization [facility] Referred Provider Jakob Mora Jr. Referred Address ,[place], [place],[address] Referred Provider Specialty Orthopedic S urgery Referral [...] 2 Rika Shabazz 05/03/2023 08:50:48 AM >Reviewed [facility] Epic and patient went to appt but I do not think the office notes are complete yet Rika Shabazz 05/06/2023 07:52:53 AM >Received consult notes from [facility] Epic Clinical Notes Office [phone] Specialty Diagnoses / Procedures Referred By Rosanne engle Referred To Contact CT IMAGING Diagnoses Malignant neoplasm of rectum (HCC) Procedures CT ABDOMEN W IVCON CT ABDOMEN W/[place] [address] [address] [facility] [address] [place] [address] Ct Imaging Referral ID Status Reason Start Date Expiration Date Visits Requested Visits Authorized [id number] Pending Review Auto-Generat ed Referral 05/03/2023 06/01/2024 1 1 Specialty Diagnoses / Procedures Referred By Contac t Referred To Contact CT IMAGING Diagnoses Malignant neoplasm of rectum (HCC) Procedures CT CHEST W IVCON DIAGNOSTIC COMPUTED TOMOGRAPHY THORAX W/[place] [address] [address] [address] [place] [address] Ct Imaging Referral ID Status Reason Start Date Expiration Date Visits Requested Visits Authorized [id number] Pending Review Auto-Generat ed Referral 05/03/2023 06/01/2024 1 1 Specialty Diagnoses / Procedures Referred By Contac t Referred To Contact MR IMAGING Diagnoses Malignant neoplasm of rectum (HCC) Procedures MRI RECTUM WO/W IVCON MRI PELVIS W/O & [place] [address] [address] [facility] [address] [place] [address] Mr Imaging Referral ID Status Reason Start Date Expiration Date Visits Requested Visits Authorized [id number] Pending Review Auto-Generat ed Referral 05/03/2023 06/01/2024 1 1 Specialty Diagnoses / Procedures Referred By Contac t Referred To Contact [facility] Diagnoses Encounter for follow-up surveillance of rectal cancer Procedures SIGMOIDOSCOPY SIGMOIDOSCOPY FLX DX W/COLLJ SPEC BR/[place] [address] [address] [address] [place] [address] [facility] [address] [place] [address] Referral ID Status Reason Start Date Expiration Date Visits Requested Visits Authorized [id number] Pending Review Auto-Generat ed Referral 05/03/2023 05/03/2024 1 1 Reason evaluate and treat Diagnosis 1 Cervical radiculopat hy (M54.12) Referral Organization [facility] urosurgery Referring Provider First Name Valencia Referring Provider Last Name Webster Referring Provider Specialty Nurse Pract itioner Referred Organization [facility] Referred Provider Bryon Cruz Referred Address [address] [place] [place], [place],[address] Referred Provider Specialty Anesthesiolo gy Referral Priority Routine Reason evaluate and treat - Left hip pain Diagnosis 1 Cervical radiculopat hy (M54.12) Referral Organization [facility] urosurgery Referring Provider First Name Valencia Referring Provider Last Name Webster Referring Provider Specialty Nurse Pract itioner Referred Organization [facility] Referred Provider Jakob Mora Jr. Referred Address ,[place], [place],[address] Referred Provider Specialty Orthopedic S urgery Referral Priority Routine Specialty Diagnoses / Procedures Referred By Rosanne t Referred To Contact MR IMAGING Diagnoses Malignant neoplasm of rectum (HCC) Procedures MRI RECTUM WO/W IVCON MRI PELVIS W/O & W/[place] [address] [address] [address] [place] [address] Mr Imaging Referral ID Status Reason Start Date Expiration Date Visits Requested Visits Authorized [id number] Authorized Auto-Generat ed Referral 02/07/2023 03/08/2024 1 1 Specialty Diagnoses / Procedures Referred By Contac t Referred To Contact [facility] Diagnoses Rectal cancer (HCC) Procedures COLONOSCOPY DIAGNOSTIC COLONOSCOPY FLX DX W/COLLJ SPEC [place] [address] [address] [address] [place] [address] [facility] [address] [place], [place] [address] [address] Referral ID Status Reason Start Date Expiration Date Visits Requested Visits Authorized [id number] Authorized Auto-Generat ed Referral 02/07/2023 02/08/2024 1 1 Specialty Diagnoses / Procedures Referred By Contac t Referred To Contact Colon and Rectal Surgery Diagnoses Rectal cancer (HCC) Procedures CONSULT TO [place] [address] [place] [address] [place] [address] [address] [address] [place] [address] Referral ID Status Reason Start Date Expiration Date Visits Requested Visits Authorized [id number] Ref Not Required PCP Requested Referral 02/04/2023 02/04/2024 1 1 Specialty Diagnoses / Procedures Referred By Contac t Referred To Contact Gastroenterology Diagnoses Rectal cancer (HCC) Rectal bleeding Procedures CONSULT TO GASTROENTEROLOGY OFFICE/OUTPATIENT NEW HIGH MDM 60-74 MINUTES Andree Hollis, 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.[employer] STORE BAGGER [address] [place] [address] Referral ID Status Reason Start Date Expiration Date Visits Requested Visits Authorized [id number] Authorized PCP Requested Referral 01/23/2023 01/23/2024 1 1 Specialty Diagnoses / Procedures Referred By Contac t Referred To Contact CT IMAGING Diagnoses Lung nodules Procedures CT CHEST W IVCON DIAGNOSTIC COMPUTED TOMOGRAPHY THORAX W/CONTRAST Minerva Anderson MD [address] [place] [address] Ct Imaging Referral ID Status Reason Start Date Expiration Date Visits Requested Visits Authorized [id number] Authorized Auto-Generat ed Referral 11/19/2022 12/19/2023 1 1 Specialty Diagnoses / Procedures Referred By Contac t Referred To Contact CT IMAGING Diagnoses Lung nodules Rectal cancer (HCC) Procedures CT ABD/PEL W IVCON CT ABD & PELVIS W/CONTRAST Minerva Anderson MD [address] [place] [address] Ct Imaging Referral ID Status Reason Start Date Expiration Date Visits Requested Visits Authorized [id number] Authorized Auto-Generat ed Referral 11/19/2022 12/19/2023 1 1 Specialty Diagnoses / Procedures Referred By Contac t Referred To Contact RADIATION ONCOLOGY Diagnoses Rectal adenocarcinoma (HCC) Procedures CT SIM PLANNING RADIATION ONCOLOGY THER RAD SIMULAJ-AIDED FIELD SETTING COMPLEX IMRT Dania Key MD [address] [facility] [place] [address] Orly Koenig [facility] [place] [address] Referral ID Status Reason Start Date Expiration Date Visits Requested Visits Authorized [id number] Pending Review PCP Requested Referral 09/24/2022 12/23/2022 1 1 Specialty Diagnoses / Procedures Referred By Contac t Referred To Contact Radiation Oncology Diagnoses Rectal cancer (HCC) Procedures RAD/ONC CONSULT OFFICE/OUTPATIENT [facility] MDM 60-74 MINUTES Minerva Anderson MD [address] [place] [address] [place] [address] Referral ID Status Reason Start Date Expiration Date Visits Requested Visits Authorized [id number] Authorized PCP Requested Referral 2 09/17/2023 1 1 Specialty Diagnoses / Procedures Referred By Contac t Referred To Contact MR IMAGING Diagnoses Rectal cancer (HCC) Procedures MRI ABDOMEN WO/W IVCON MRI ABDOMEN W/O & W/CONTRAST MATERIAL Minerva Anderson MD [address] [place] [address] [place] [address] Mr Imaging Referral ID Status Reason Start Date Expiration Date Visits Requested Visits Authorized [id number] Pending Review Auto-Generat ed Referral 2 10/17/2023 1 1 Specialty Diagnoses / Procedures Referred By Contac t Referred To Contact MOLECULAR & FUNCTIONAL IMAGING Diagnoses Rectal cancer (HCC) Procedures NM PET/CT SKULL-THIGH INITIAL PET IMAGING CT ATTENUATION SKULL BASE MID-THIGH Minerva Anderson MD [address] [place] [address] [place] [address] Molecular & Functional Imaging [address] [place] [address] Referral ID Status Reason Start Date Expiration Date Visits Requested Visits Authorized [id number] Authorized Auto-Generat ed Referral 2 10/17/2023 1 [...] POSIFLUSH) 10-20 mL, INTRAVENOUS, NEEDED, Starting on Kalina 12/27/22 at 1019, Until Kalina 12/27/22 at 1713, See Administration Instructions, If no [...] mg, INTRAVENOUS, ONCE, 1 dose, On Kalina 01/10/23 at 1030, Refrigerate. New Bag/Syringe/Bottle 01/10/2023 10:21 [...] mg, INTRAVENOUS, ONCE, 1 dose, On Kalina 03/21/23 at 1100, Refrigerate. New Bag/Syringe/Bottle 03/21/2023 11:18 AM EDT 10 mg NaCl 0.9% 1,000 mL INTRAVENOUS, at 999 mL/hr, Administer over 1 Hours, ONCE, 1 dose, On Kalina 03/21/23 at 1100 New Bag/Syringe/Bottle 03/21/2023 10:54 AM EDT 999 mL/hr ondansetron (PF) 8 mg injection (ZOFRAN) 8 mg, INTRAVENOUS, ONCE, 1 dose, On Kalina 03/21/23 at 1100 Given 03/21/2023 11:15 AM EDT [...] content) DATE CREATED AUTHOR 08/09/2021 [facility] DATE CREATED AUTHOR AUTHOR'S ORGANIZ ATION 09/27/2022 [facility] DATE CREATED AUTHOR AUTHOR'S ORGANIZ ATION 04/19/2023 [facility] DATE CREATED AUTHOR AUTHOR'S ORGANIZ ATION 08/16/2023 [facility] DATE CREATED AUTHOR AUTHOR'S ORGANIZ ATION 01/07/2024 [facility] DATE CREATED AUTHOR AUTHOR'S ORGANIZ ATION 07/24/2024 [facility] DATE CREATED AUTHOR AUTHOR'S ORGANIZ ATION 07/27/2024 [facility] DATE CREATED AUTHOR AUTHOR'S ORGANIZ ATION 08/01/2024 [facility] DATE CREATED AUTHOR AUTHOR'S ORGANIZ ATION 08/02/2024 [facility] DATE CREATED AUTHOR AUTHOR'S ORGANIZ ATION 08/25/2024 [facility] DATE CREATED AUTHOR AUTHOR'S ORGANIZ ATION 08/26/2024 [facility] DATE CREATED AUTHOR AUTHOR'S ORGANIZ ATION 09/01/2024 [facility] DATE CREATED AUTHOR AUTHOR'S ORGANIZ ATION 09/30/2024 [facility] DATE CREATED AUTHOR AUTHOR'S ORGANIZ ATION 10/15/2024 [facility] DATE CREATED AUTHOR AUTHOR'S ORGANIZ ATION 10/22/2024 [facility] DATE CREATED AUTHOR AUTHOR'S ORGANIZ ATION 12/21/2024 [facility] DATE CREATED AUTHOR AUTHOR'S ORGANIZ ATION 02/18/2025 [facility] DATE CREATED AUTHOR AUTHOR'S ORGANIZ ATION 03/16/2025 [facility] DATE CREATED AUTHOR AUTHOR'S ORGANIZ ATION 04/11/2025 [facility] DATE CREATED AUTHOR AUTHOR'S ORGANIZ ATION 04/15/2025 [facility] DATE CREATED AUTHOR AUTHOR'S ORGANIZ ATION 05/02/2025 [facility] DATE CREATED AUTHOR AUTHOR'S ORGANIZ ATION 06/20/2025 [facility] DATE CREATED AUTHOR AUTHOR'S ORGANIZ ATION 07/14/2025 [facility] DATE CREATED AUTHOR AUTHOR'S ORGANIZ ATION 07/27/2025 [facility] DATE CREATED AUTHOR AUTHOR'S ORGANIZ ATION 07/30/2025 [facility] DATE CREATED AUTHOR AUTHOR'S ORGANIZ ATION 08/03/2025 [facility] Care Team (unrecognized sect ion and content) Team Status: Active Member Role Status Dates Lorenzo Marin , Primary Care Provider Active Team Status: Inactive Member Role Status Dates Lorenzo Marin , Primary Care Provider Active JM Busby Attending Provider Active Playground Monitor Relationship Specialty Start Date End Date Tomas, Lorenzo Dailey DO PCP - General Family Medicine 04/16/13 Playground Monitor Relationship Specialty Start Date End Date Tomas, Lorenzo Dailey DO PCP - General Family Medicine 04/16/13 Playground Monitor Relationship Specialty Start Date End Date Tomas, Lorenzo Dailey DO PCP - General Family Medicine 04/16/13 Playground Monitor Relationship Specialty Start Date End Date Tomas, Lorenzo Dailey DO PCP - General Family Medicine 04/16/13 Playground Monitor Relationship Specialty Start Date End Date Tomas, Lorenzo Dailey DO PCP - General Family Medicine 04/16/13 Playground Monitor Relationship Specialty Start Date End Date Tomas, Lorenzo Dailey DO PCP - General Family Medicine 04/16/13 Playground Monitor Relationship Specialty Start Date End Date Tomas, Lorenzo Dailey DO PCP - General Family Medicine 04/16/13 Playground Monitor Relationship Specialty Start Date End Date Lorenzo Marin DO PCP - General Family Medicine 04/16/13 Playground Monitor Relationship Specialty Start Date End Date Tomas, Lorenzo Dailey DO PCP - General Family Medicine 04/16/13 Playground Monitor Relationship Specialty Start Date End Date Tomas, Lorenzo Dailey DO PCP - General Family Medicine 04/16/13 Playground Monitor Relationship Specialty Start Date End Date Lorenzo Marin DO PCP - General Family Medicine 04/16/13 Sera Forbes [facility] Ui Engineer 09/26/22 Team Status: Inactive Member Role Status Lorenzo Marin DO Primary Care Provider Active Minerva Anderson MD Attending Provider Active Playground Monitor Relationship Specialty Start Date End Date Lorenzo Marin DO PCP - General Family Medicine 04/16/13 Sera Forbes, [facility] Ui Engineer 09/26/22 Minerva Anderson MD [address] [place], [place] [address] Physician Hematology/Oncology 10/01/22 Dania Key MD [address] [place] [address] Physician Radiation Oncology 10/01/22 Andree Hollis, 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.[facility] [address] [place] [address] Nurse Practitioner Hematology/Oncology 10/01/22 Denisha Duarte, RN [address] [place] [address] Specialty Sales Engineer [employer] Hematology/Oncology 10/01/22 Playground Monitor Relationship Specialty Start Date End Date Lorenzo Marin DO PCP - General Family Medicine 04/16/13 Sera Forbes [facility] Ui Engineer 09/26/22 Minerva Anderson MD [address] [place] [address] Physician Hematology/Oncology 10/01/22 Dania Key MD [address] [place] [address] Physician Radiation Oncology 10/01/22 Andree Hollis, 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.[employer] STORE BAGGER [address] [place] [address] Nurse Practitioner Hematology/Oncology 10/01/22 Denisha Duarte, RN [address] [place] [address] Specialty Sales Engineer [employer] Hematology/Oncology 10/01/22 Playground Monitor Relationship Specialty Start Date End Date Lorenzo Marin DO PCP - General Family Medicine 04/16/13 Sera Forbes LSW Ui Engineer 09/26/22 Minerva Anderson MD [address] [place], [place] [address] Physician Hematology/Oncology 10/01/22 Dania Key MD [address] [place] [address] Physician Radiation Oncology 10/01/22 Andree Hollis, 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.[employer] STORE BAGGER [address] [place] [address] Nurse Practitioner Hematology/Oncology 10/01/22 Denisha Duarte, RN [address] [place] [address] Specialty Sales Engineer [employer] Hematology/Oncology 10/01/22 Playground Monitor Relationship Specialty Start Date End Date Lorenzo Marin DO PCP - General Family Medicine 04/16/13 Sera Forbes LSW Ui Engineer 09/26/22 Minerva Anderson MD [address] [place] [address] Physician Hematology/Oncology 10/01/22 Dania Key MD [address] [place], [place] [id number] Physician Radiation Oncology 10/01/22 Andree Hollis, 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.[employer] STORE BAGGER [address] [place] [address] Nurse Practitioner Hematology/Oncology 10/01/22 Denisha Duarte, ALEXUS [address] [place] [address] Specialty Sales Engineer [employer] Hematology/Oncology 10/01/22 Playground Monitor Relationship Specialty Start Date End Date Lorenzo Marin DO PCP - General Family Medicine 04/16/13 Sera Forbes LSW Ui Engineer 09/26/22 Minerva Anderson MD [address] [place] [address] Physician Hematology/Oncology 10/01/22 Dania Key MD [address] [place] [address] Physician Radiation Oncology 10/01/22 Andree Hollis, 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.GROC[employer] STORE BAGGER [address] [place] [address] Nurse Practitioner Hematology/Oncology 10/01/22 Denisha Duarte, ALEXUS [address] [place] [address] Specialty Sales Engineer [employer] Hematology/Oncology 10/01/22 Playground Monitor Relationship Specialty Start Date End Date Lorenzo Marin DO PCP - General Family Medicine 04/16/13 Sera Forbes LSW Ui Engineer 09/26/22 Minerva Anderson MD [address] [place] [address] Physician Hematology/Oncology 10/01/22 Dania Key MD [address] [place] [address] Physician Radiation Oncology 10/01/22 Andree Hollis, 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.[employer] STORE BAGGER [address] [place] [address] Nurse Practitioner Hematology/Oncology 10/01/22 Denisha Duarte, RN [address] [place], [place] [address] Specialty Sales Engineer [employer] Hematology/Oncology 10/01/22 Playground Monitor Relationship Specialty Start Date End Date Lorenzo Marin DO PCP - General Family Medicine 04/16/13 Sera Forbes LSW Ui Engineer 09/26/22 Minerva Anderson MD [address] [place] [address] Physician Hematology/Oncology 10/01/22 Dania Key MD [address] [place] [address] Physician Radiation Oncology 10/01/22 Andree Hollis, 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.[employer] [address] [place] [address] Nurse Practitioner Hematology/Oncology 10/01/22 Denisha Duarte, RN [address] [place] [address] Specialty Sales Engineer [employer] Hematology/Oncology 10/01/22 Playground Monitor Relationship Specialty Start Date End Date Lorenzo Marin DO PCP - General Family Medicine 04/16/13 Sera Forbes LSW Ui Engineer 09/26/22 Minerva Anderson MD [address] [place] [address] Physician Hematology/Oncology 10/01/22 Dania Key MD [address] [place] [address] Physician Radiation Oncology 10/01/22 Andree Hollis, 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.[facility] [address] [place] [address] Nurse Practitioner Hematology/Oncology 10/01/22 Denisha Duarte, RN [address] [place] [address] Specialty Sales Engineer [employer] Hematology/Oncology 10/01/22 Playground Monitor Relationship Specialty Start Date End Date Lorenzo Marin DO PCP - General Family Medicine 04/16/13 Sera Forbes LSW Ui Engineer 09/26/22 Minerva Anderson MD [address] [place] [address] Physician Hematology/Oncology 10/01/22 Dania Key MD [address] [place] [address] Physician Radiation Oncology 10/01/22 Andree Hollis, 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.[facility] [address] [place] [address] Nurse Practitioner Hematology/Oncology 10/01/22 Denisha Duarte, ALEXUS [address] [place] [address] Specialty Sales Engineer [employer] Hematology/Oncology 10/01/22 Playground Monitor Relationship Specialty Start Date End Date Lorenzo Marin DO PCP - General Family Medicine 04/16/13 Sera Forbes LSW Ui Engineer 09/26/22 Minerva Anderson MD [address] [place] [address] Physician Hematology/Oncology 10/01/22 Dania Key MD [address] [place] [address] Physician Radiation Oncology 10/01/22 Andree Hollis, 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.[address] [place] [address] Nurse Practitioner Hematology/Oncology 10/01/22 Denisha Duarte, ALEXUS [address] [place] [address] Specialty Sales Engineer [employer] Hematology/Oncology 10/01/22 Playground Monitor Relationship Specialty Start Date End Date Lorenzo Marin DO PCP - General Family Medicine 04/16/13 Sera Forbes LSW Ui Engineer 09/26/22 Minerva Anderson MD [address] [place] [address] Physician Hematology/Oncology 10/01/22 Dania Key MD [address] [place] [address] [place] [address] Physician Radiation Oncology 10/01/22 Andree Hollis, 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.[facility] [address] [place] [address] Nurse Practitioner Hematology/Oncology 10/01/22 Denisha Duarte, ALEXUS [address] [place] [address] Specialty Sales Engineer [employer] Hematology/Oncology 10/01/22 Playground Monitor Relationship Specialty Start Date End Date Lorenzo Marin DO PCP - General Family Medicine 04/16/13 Sera Forbes, MEDICAL IMAGING TECH Ui Engineer 09/26/22 Minerva Anderson MD [address] [place], [place] [id number] Physician Hematology/Oncology 10/01/22 Dania Key MD [address] [place] [address] Physician Radiation Oncology 10/01/22 Andree Hollis, 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.[employer] [address] [place] [address] Nurse Practitioner Hematology/Oncology 10/01/22 Denisha Duarte, RN [address] [place] [address] Specialty Sales Engineer [employer] Hematology/Oncology 10/01/22 Playground Monitor Relationship Specialty Start Date End Date Lorenzo Marin DO PCP - General Family Medicine 04/16/13 Sera Forbes MEDICAL IMAGING TECH Ui Engineer 09/26/22 Minerva Anderson MD [address] [place] [address] Physician Hematology/Oncology 10/01/22 Dania Key MD [address] [place] [address] Physician Radiation Oncology 10/01/22 Andree Hollis, 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.[employer] [address] [place] [address] Nurse Practitioner Hematology/Oncology 10/01/22 Denisha Duarte, RN [address] [place] [address] Specialty Sales Engineer [employer] Hematology/Oncology 10/01/22 Playground Monitor Relationship Specialty Start Date End Date Lorenzo Marin DO PCP - General Family Medicine 04/16/13 Sera Forbes LSW Ui Engineer 09/26/22 Minerva Anderson MD [address] [place], [place] [id number] Physician Hematology/Oncology 10/01/22 Dania Key MD [address] [place], [place] [address]70 Physician Radiation Oncology 10/01/22 Andree Hollis, 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.[employer] [address] [place] [address] Nurse Practitioner Hematology/Oncology 10/01/22 Denisha Duarte, ALEXUS [address] [place] [address] Specialty Sales Engineer [employer] Hematology/Oncology 10/01/22 Playground Monitor Relationship Specialty Start Date End Date Lorenzo Marin DO PCP - General Family Medicine 04/16/13 Sera Forbes LSW Ui Engineer 09/26/22 Minerva Anderson MD [address] [place] [address] Physician Hematology/Oncology 10/01/22 Dania Key MD [address] [place] [address] Physician Radiation Oncology 10/01/22 Andree Hollis, 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.[employer] [address] [place] [address] Nurse Practitioner Hematology/Oncology 10/01/22 Denisha Duarte, RN [address] [place] [address] Specialty Sales Engineer [employer] Hematology/Oncology 10/01/22 Playground Monitor Relationship Specialty Start Date End Date Lorenzo Marin DO PCP - General Family Medicine 04/16/13 Sera Forbes, MEDICAL IMAGING TECH Ui Engineer 09/26/22 Minerva Anderson MD [address] [place], [place] [address] Physician Hematology/Oncology 10/01/22 Dania Key MD [address] [place], [place] [id number] Physician Radiation Oncology 10/01/22 Andree Hollis, 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.[employer] [address] [place] [address] Nurse Practitioner Hematology/Oncology 10/01/22 Denisha Duarte, ALEXUS [address] [place] [address] Specialty Sales Engineer [employer] Hematology/Oncology 10/01/22 Playground Monitor Relationship Specialty Start Date End Date Lorenzo Marin DO PCP - General Family Medicine 04/16/13 Sera Forbes, MEDICAL IMAGING TECH Ui Engineer 09/26/22 Minerva Anderson MD [address] [place] [address] Physician Hematology/Oncology 10/01/22 Dania Key MD [address] [place], [place] [id number] Physician Radiation Oncology 10/01/22 Andree Hollis, 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.[employer] BAG[employer] [address] [place] [address] Nurse Practitioner Hematology/Oncology 10/01/22 Denisha Duarte, ALEXUS [address] [place] [address] Specialty Sales Engineer [employer] Hematology/Oncology 10/01/22 Playground Monitor Relationship Specialty Start Date End Date Lorenzo Marin DO PCP - General Family Medicine 04/16/13 Sera Forbes, MEDICAL IMAGING TECH Ui Engineer 09/26/22 Minerva Anderson MD [address] [place] [address] Physician Hematology/Oncology 10/01/22 Dania Key MD [address] [place] [address] Physician Radiation Oncology 10/01/22 Andree Hollis, 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.[employer] [address] [place] [address] Nurse Practitioner Hematology/Oncology 10/01/22 Denisha Duarte, ALEXUS [address] [place] [address] Specialty Sales Engineer [employer] Hematology/Oncology 10/01/22 Playground Monitor Relationship Specialty Start Date End Date Lorenzo Marin DO PCP - General Family Medicine 04/16/13 Sera Forbes, [facility] Ui Engineer 09/26/22 Minerva Anderson MD [address] [place] [address] Physician Hematology/Oncology 10/01/22 Dania Key MD [address] [place] [address] Physician Radiation Oncology 10/01/22 Andree Hollis, 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.[employer] [address] [place] [address] Nurse Practitioner Hematology/Oncology 10/01/22 Denisha Duarte, ALEXUS [address] [place] [address] Specialty Sales Engineer [employer] Hematology/Oncology 10/01/22 Playground Monitor Relationship Specialty Start Date End Date Lorenzo Marin DO PCP - General Family Medicine 04/16/13 Sera Forbes, [facility] Ui Engineer 09/26/22 Minerva Anderson MD [address] [place], [place] [address] Physician Hematology/Oncology 10/01/22 Dania Key MD [address] [place] [address] Physician Radiation Oncology 10/01/22 Andree Hollis, 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.[employer] [address] [place] [address] Nurse Practitioner Hematology/Oncology 10/01/22 Denisha Duarte, ALEXUS [address] [place] [address] Specialty Sales Engineer [employer] Hematology/Oncology 10/01/22 Playground Monitor Relationship Specialty Start Date End Date Lorenzo Marin DO PCP - General Family Medicine 04/16/13 Sera Forbes, [facility] Ui Engineer 09/26/22 Minerva Anderson MD [address] [place] [address] Physician Hematology/Oncology 10/01/22 Dania Key MD [address] [place] [address] Physician Radiation Oncology 10/01/22 Andree Hollis, 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.[employer] [address] [place] [address] Nurse Practitioner Hematology/Oncology 10/01/22 Denisha Duarte, ALEXUS [address] [place], [place] [id number] Specialty Sales Engineer [employer] Hematology/Oncology 10/01/22 Playground Monitor Relationship Specialty Start Date End Date Lorenzo Marin DO PCP - General Family Medicine 04/16/13 Sera Forbes, [facility] Ui Engineer 09/26/22 Minerva Anderson MD [address] [place] [address] Physician Hematology/Oncology 10/01/22 Dania Key MD [address] [place] [address] [place] [address] Physician Radiation Oncology 10/01/22 Andree Hollis, AZAEL.[employer] [address] [place] [address] Nurse Practitioner Hematology/Oncology 10/01/22 Denisha Duarte, ALEXUS [address] [place], [place] [id number] Specialty Sales Engineer [employer] Hematology/Oncology 10/01/22 Playground Monitor Relationship Specialty Start Date End Date Lorenzo Marin DO PCP - General Family Medicine 04/16/13 Sera Forbes, [facility] Ui Engineer 09/26/22 Minerva Anderson MD [address] [place] [address] Physician Hematology/Oncology 10/01/22 Dania Key MD [address] [place] [address] Physician Radiation Oncology 10/01/22 Andree Hollis, 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.[employer] [address] [place] [address] Nurse Practitioner Hematology/Oncology 10/01/22 Denisha Duarte, RN [address] [place] [address] Specialty Sales Engineer [employer] Hematology/Oncology 10/01/22 Playground Monitor Relationship Specialty Start Date End Date Lorenzo Marin DO PCP - General Family Medicine 04/16/13 Sera Forbes LSW Ui Engineer 09/26/22 Minerva Anderson MD [address] [place], [place] [address] Physician Hematology/Oncology 10/01/22 Dania Key MD [address] [place] [address] Physician Radiation Oncology 10/01/22 Andree Hollis, 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.[employer] BAG[employer] [address] [place] [address] Nurse Practitioner Hematology/Oncology 10/01/22 Denisha Duarte, RN [address] [place] [address] Specialty Sales Engineer [employer] Hematology/Oncology 10/01/22 Playground Monitor Relationship Specialty Start Date End Date Lorenzo Marin DO PCP - General Family Medicine 04/16/13 Sera Forbes LSW Ui Engineer 09/26/22 Minerva Anderson MD [address] [place] [address] Physician Hematology/Oncology 10/01/22 Dania Key MD [address] [place], [place] [address] Physician Radiation Oncology 10/01/22 Andree Hollis, 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.[employer] [address] [place] [address] Nurse Practitioner Hematology/Oncology 10/01/22 Denisha Duarte, ALEXUS [address] [place] [address] Specialty Sales Engineer [employer] Hematology/Oncology 10/01/22 Playground Monitor Relationship Specialty Start Date End Date Lorenzo Marin DO PCP - General Family Medicine 04/16/13 Sera Forbes, DAI Ui Engineer 09/26/22 Minerva Anderson MD [address] [place] [address] Physician Hematology/Oncology 10/01/22 Dania Key MD [address] [place] [address] Physician Radiation Oncology 10/01/22 Andree Hollis, 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.[employer] BAG[employer] [address] [place] [address] Nurse Practitioner Hematology/Oncology 10/01/22 Denisha Duarte, ALEXUS [address] [place] [address] Specialty Sales Engineer [employer] Hematology/Oncology 10/01/22 Playground Monitor Relationship Specialty Start Date End Date Lorenzo Marin DO PCP - General Family Medicine 04/16/13 Sera Forbes LSW Ui Engineer 09/26/22 Minerva Anderson MD [address] [place] [address] Physician Hematology/Oncology 10/01/22 Dania Key MD [address] [place] [address] Physician Radiation Oncology 10/01/22 Andree Hollis, 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.[employer] [address] [place] [address] Nurse Practitioner Hematology/Oncology 10/01/22 Denisha Duarte, RN [address] [place] [address] Specialty Sales Engineer [employer] Hematology/Oncology 10/01/22 Playground Monitor Relationship Specialty Start Date End Date oLrenzo Marin DO PCP - General Family Medicine 04/16/13 Sera Forbes LSW Ui Engineer 09/26/22 Minerva Anderson MD [address] [place], [place] [address] Physician Hematology/Oncology 10/01/22 Dania Key MD [address] [place] [address] Physician Radiation Oncology 10/01/22 Andree Hollis, 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.[employer] [address] [place] [address] Nurse Practitioner Hematology/Oncology 10/01/22 Denisha Duarte, RN [address] [place] [address] Specialty Sales Engineer [employer] Hematology/Oncology 10/01/22 Playground Monitor Relationship Specialty Start Date End Date Lorenzo Marin DO PCP - General Family Medicine 04/16/13 Sera Forbes LSW Ui Engineer 09/26/22 Minerva Anderson MD [address] [place] [address] Physician Hematology/Oncology 10/01/22 Dania Key MD [address] [place], [place] [address] Physician Radiation Oncology 10/01/22 Andree Hollis, 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.[facility] [address] [place] [address] Nurse Practitioner Hematology/Oncology 10/01/22 Denisha Duarte, RN [address] [place] [address] Specialty Sales Engineer [employer] Hematology/Oncology 10/01/22 Playground Monitor Relationship Specialty Start Date End Date Lorenzo Marin DO PCP - General Family Medicine 04/16/13 Sera Forbes LSW Ui Engineer 09/26/22 Minerva Anderson MD [address] [place], [place] [address] Physician Hematology/Oncology 10/01/22 Dania Key MD [address] [place] [address] Physician Radiation Oncology 10/01/22 Andree Hollis, 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.[facility] [address] [place] [address] Nurse Practitioner Hematology/Oncology 10/01/22 Denisha Duarte, RN [address] [place] [address] Specialty Sales Engineer [employer] Hematology/Oncology 10/01/22 Playground Monitor Relationship Specialty Start Date End Date Lorenzo Marin DO PCP - General Family Medicine 04/16/13 Sera Forbes LSW Ui Engineer 09/26/22 Minerva Anderson MD [address] [place] [address] Physician Hematology/Oncology 10/01/22 Dania Key MD [address] [place] [address] Physician Radiation Oncology 10/01/22 Andree Hollis, 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.[facility] [address] [place] [address] Nurse Practitioner Hematology/Oncology 10/01/22 Denisha Duarte, ALEXUS [address] [place] [address] Specialty Sales Engineer [employer] Hematology/Oncology 10/01/22 Playground Monitor Relationship Specialty Start Date End Date Lorenzo Marin DO PCP - General Family Medicine 04/16/13 Sera Forbes LSW Ui Engineer 09/26/22 Minerva Anderson MD [address] [place] [address] Physician Hematology/Oncology 10/01/22 Dania Key MD [address] [place] [address] Physician Radiation Oncology 10/01/22 Andree Hollis, 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.[facility] [address] [place] [address] Nurse Practitioner Hematology/Oncology 10/01/22 Denisha Duarte, ALEXUS [address] [place] [address] Specialty Sales Engineer [employer] Hematology/Oncology 10/01/22 Playground Monitor Relationship Specialty Start Date End Date Lorenzo Marin DO PCP - General Family Medicine 04/16/13 Sera Forbes, MEDICAL IMAGING TECH Ui Engineer 09/26/22 Minerva Anderson MD [address] [place], [place] [id number] Physician Hematology/Oncology 10/01/22 Dania Key MD [address] [place] [address] Physician Radiation Oncology 10/01/22 Andree Hollis, 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.[employer] [address] [place] [address] Nurse Practitioner Hematology/Oncology 10/01/22 Denisha Duarte, RN [address] [place] [address] Specialty Sales Engineer [employer] Hematology/Oncology 10/01/22 Playground Monitor Relationship Specialty Start Date End Date Lorenzo Marin DO PCP - General Family Medicine 04/16/13 Sera Forbes [facility] Ui Engineer 09/26/22 Minerva Anderson MD [address] [place] [address] Physician Hematology/Oncology 10/01/22 Dania Key MD [address] [place] [address] Physician Radiation Oncology 10/01/22 Andree Hollis, 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.[employer] [address] [place] [address] Nurse Practitioner Hematology/Oncology 10/01/22 Denisha Duarte, RN [address] [place] [address] Specialty Sales Engineer [employer] Hematology/Oncology 10/01/22 Playground Monitor Relationship Specialty Start Date End Date Lorenzo Marin DO PCP - General Family Medicine 04/16/13 Sera Forbes LSW Ui Engineer 09/26/22 Minerva Anderson MD [address] [place] [address] Physician Hematology/Oncology 10/01/22 Dania Key MD [address] [place] [address] Physician Radiation Oncology 10/01/22 Andree Hollis, AZAEL.[employer]AG[employer] [address] [place] [address] Nurse Practitioner Hematology/Oncology 10/01/22 Denisha Duarte, ALEXUS [address] [place] [address] Specialty Sales Engineer [employer] Hematology/Oncology 10/01/22 Playground Monitor Relationship Specialty Start Date End Date Lorenzo Marin DO PCP - General Family Medicine 04/16/13 Sera Forbes LSW Ui Engineer 09/26/22 Minerva Anderson MD [address] [place] [address] Physician Hematology/Oncology 10/01/22 Dania Key MD [address] [place] [address] Physician Radiation Oncology 10/01/22 Andree Hollis, 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.[employer] [address] [place] [address] Nurse Practitioner Hematology/Oncology 10/01/22 Denisha Duarte, ALEXUS [address] [place] [address] Specialty Sales Engineer [employer] Hematology/Oncology 10/01/22 Playground Monitor Relationship Specialty Start Date End Date Lorenzo Marin DO PCP - General Family Medicine 04/16/13 Sera Forbes, MEDICAL IMAGING TECH Ui Engineer 09/26/22 Minerva Anderson MD [address] [place] [address] Physician Hematology/Oncology 10/01/22 Dania Key MD [address] [place], [place] [id number] Physician Radiation Oncology 10/01/22 Andree Hollis, 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.[employer] [address] [place], [place] [id number] Nurse Practitioner Hematology/Oncology 10/01/22 Denisha Duarte, ALEXUS [address] [place], [place] [id number] Specialty Sales Engineer [employer] Hematology/Oncology 10/01/22 Playground Monitor Relationship Specialty Start Date End Date Lorenoz Marin DO PCP - General Family Medicine 04/16/13 Sera Forbes, [facility] Ui Engineer 09/26/22 Minerva Anderson MD [address] [place] [address] Physician Hematology/Oncology 10/01/22 Dania Key MD [address] [place] [address] Physician Radiation Oncology 10/01/22 Andree Hollis, 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.[employer] [address] [place] [address] Nurse Practitioner Hematology/Oncology 10/01/22 Denisha Duarte, ALEXUS [address] [place] [address] Specialty Sales Engineer [employer] Hematology/Oncology 10/01/22 Chelsie Kolb, RN 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 02/18/23 02/19/28 Playground Monitor Relationship Specialty Start Date End Date Lorenzo Marin DO PCP - General Family Medicine 04/16/13 Sera Forbes MEDICAL IMAGING TECH Ui Engineer 09/26/22 Minerva Anderson MD [address] [place] [address] [place] [address] Physician Hematology/Oncology 10/01/22 Dania Key MD [address] [place] [address] [place] [address] Physician Radiation Oncology 10/01/22 Andree Hollis, AZAEL.[address] [place], [place] [id number] Nurse Practitioner Hematology/Oncology 10/01/22 Denisha Duarte, ALEXUS [address] [place] [address] [place] [address] Specialty Sales Engineer [employer] Hematology/Oncology 10/01/22 Cheslie Kolb, RN 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 02/18/23 02/19/28 Playground Monitor Relationship Specialty Start Date End Date Lorenzo Marin DO PCP - General Family Medicine 04/16/13 Sera Forbes LSW Ui Engineer 09/26/22 Minerva Anderson MD [address] [place] [address] [place] [address] Physician Hematology/Oncology 10/01/22 Dania Key MD [address] [place] [address] [place] [address] Physician Radiation Oncology 10/01/22 Andree Hollis, 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.[employer] [address] [place] [address] Nurse Practitioner Hematology/Oncology 10/01/22 Denisha Duarte, ALEXUS [address] [place] [address] Specialty Sales Engineer [employer] Hematology/Oncology 10/01/22 Chelsie Kolb, RN 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 02/18/23 02/19/28 Playground Monitor Relationship Specialty Start Date End Date Lorenzo Marin DO PCP - General Family Medicine 04/16/13 Sera Forbes, MEDICAL IMAGING TECH Ui Engineer 09/26/22 Minerva Anderson MD [address] [place] [address] Physician Hematology/Oncology 10/01/22 Dania Key MD [address] [place] [address] Physician Radiation Oncology 10/01/22 Andree Hollis, 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.[employer] [address] [place] [address] Nurse Practitioner Hematology/Oncology 10/01/22 Denisha Duarte, ALEXUS [address] [place] [address] Specialty Sales Engineer [employer] Hematology/Oncology 10/01/22 Chelsie Kolb, RN 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 02/18/23 02/19/28 Playground Monitor Relationship Specialty Start Date End Date Lorenzo Marin DO PCP - General Family Medicine 04/16/13 Sera Forbes, MEDICAL IMAGING TECH Ui Engineer 09/26/22 Minerva Anderson MD [address] [place], [place] [id number] Physician Hematology/Oncology 10/01/22 Dania Key MD [address] [place] [address] Physician Radiation Oncology 10/01/22 Andree Hollis, 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.[facility] [address] [place] [address] Nurse Practitioner Hematology/Oncology 10/01/22 Denisha Duarte, [facility] [address] [place] [address] [place] [id number] Specialty Sales Engineer [employer] Hematology/Oncology 10/01/22 Chelsie Kolb, RN 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 02/18/23 02/19/28 Playground Monitor Relationship Specialty Start Date End Date Lorenzo Marin DO PCP - General Family Medicine 04/16/13 Sera Forbes LSW Ui Engineer 09/26/22 Minerva Anderson MD [address] [place] [address] Physician Hematology/Oncology 10/01/22 Dania Key MD [address] [place] [address] Physician Radiation Oncology 10/01/22 Andree Hollis, 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.[facility] [address] [place] [address] Nurse Practitioner Hematology/Oncology 10/01/22 Denisha Duarte, [facility] [address] [place] [address] Specialty Sales Engineer [employer] Hematology/Oncology 10/01/22 Chelsie Kolb, RN 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 02/18/23 02/19/28 Playground Monitor Relationship Specialty Start Date End Date Lorenzo MarinDO PCP - General Family Medicine 04/16/13 Sera Forbes LSW Ui Engineer 09/26/22 Minerva Anderson MD [address] [place] [address] Physician Hematology/Oncology 10/01/22 Dania Key MD [address] [place], [place] [id number] Physician Radiation Oncology 10/01/22 Andree Hollis, 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.[employer] [address] [place] [address] Nurse Practitioner Hematology/Oncology 10/01/22 Denisha Duarte, [facility] [address] [place] [address] Specialty Sales Engineer [employer] Hematology/Oncology 10/01/22 Chelsie Kolb RN 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 02/18/23 02/19/28 Playground Monitor Relationship Specialty Start Date End Date Tomas Lorenzo AsimDO PCP - General Family Medicine 04/16/13 Sera Forbes MEDICAL IMAGING TECH Ui Engineer 09/26/22 Minerva Anderson MD [address] [place] [address] Physician Hematology/Oncology 10/01/22 Dania Key MD [address] [place] [address] Physician Radiation Oncology 10/01/22 Andree Hollis, 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.[employer] [address] [place] [address] Nurse Practitioner Hematology/Oncology 10/01/22 Denisha Duarte, RN [address] [place] [address] Specialty Sales Engineer [employer] Hematology/Oncology 10/01/22 Chelsie Kolb, RN 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 02/18/23 02/19/28 Playground Monitor Relationship Specialty Start Date End Date Lorenzo Marin DO PCP - General Family Medicine 04/16/13 Sera Forbes LSW Ui Engineer 09/26/22 Minerva Anderson MD [address] [place] [address] [address] [place], [place] [id number] Physician Hematology/Oncology 10/01/22 Dania Key MD [address] [place] [address] [address] [place], [place] [id number] Physician Radiation Oncology 10/01/22 Andree Hollis, AZAEL.[employer] [address] [place] [address] [place], [place] [id number] Nurse Practitioner Hematology/Oncology 10/01/22 Denisha Duarte, [facility] [address] [place] [address] [address] [place], [place] [id number] Specialty Sales Engineer [employer] Hematology/Oncology 10/01/22 Chelsie Kolb, RN 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 02/18/23 02/19/28 Playground Monitor Relationship Specialty Start Date End Date Lorenzo Marin DO PCP - General Family Medicine 04/16/13 Sera Forbes LSW Ui Engineer 09/26/22 Minerva Anderson MD [address] [place] [address] [place] [address] Physician Hematology/Oncology 10/01/22 Dania Key MD [address] [place] [address] [place] [address] Physician Radiation Oncology 10/01/22 Andree Hollis, 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.[employer] [address] [place] [address] Nurse Practitioner Hematology/Oncology 10/01/22 Denisha Duarte, [facility] [address] [place] [address] Specialty Sales Engineer [employer] Hematology/Oncology 10/01/22 Chelsie Kolb, RN 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 02/18/23 02/19/28 Playground Monitor Relationship Specialty Start Date End Date Lorenzo Marin DO PCP - General Family Medicine 04/16/13 Sera Forbes LSW Ui Engineer 09/26/22 Minerva Anderson MD [address] [place] [address] Physician Hematology/Oncology 10/01/22 Dania Key MD [address] [place] [address] Physician Radiation Oncology 10/01/22 Andree Hollis, 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.[employer] [address] [place] [address] Nurse Practitioner Hematology/Oncology 10/01/22 Denisha Duarte, RN [address] [place] [address] Specialty Sales Engineer [employer] Hematology/Oncology 10/01/22 Chelsie Kolb, RN 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 02/18/23 02/19/28 Playground Monitor Relationship Specialty Start Date End Date Lorenzo Marin DO PCP - General Family Medicine 04/16/13 Sera Forbes LSW Ui Engineer 09/26/22 Minerva Anderson MD [address] [place] [address] Physician Hematology/Oncology 10/01/22 Dania Key MD [address] [place], [place] [id number] Physician Radiation Oncology 10/01/22 Andree Hollis, 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.[facility] [address] [place] [address] Nurse Practitioner Hematology/Oncology 10/01/22 Denisha Duarte, [facility] [address] [place] [address] [place] [address] Specialty Sales Engineer [employer] Hematology/Oncology 10/01/22 Chelsie Kolb, [facility] 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 02/18/23 02/19/28 Playground Monitor Relationship Specialty Start Date End Date Lorenzo Marin DO PCP - General Family Medicine 04/16/13 Sera Forbes LSW Ui Engineer 09/26/22 Minerva Anderson MD [address] [place] [address] Physician Hematology/Oncology 10/01/22 Dania Key MD [address] [place] [address] [place] [address] Physician Radiation Oncology 10/01/22 Andree Hollis, 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.[facility] [address] [place] [address] Nurse Practitioner Hematology/Oncology 10/01/22 Denisha Duarte, [facility] [address] [place] [address] Specialty Sales Engineer [employer] Hematology/Oncology 10/01/22 Chelsie Kolb, RN 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 02/18/23 02/19/28 Playground Monitor Relationship Specialty Start Date End Date Lorenzo Marin DO PCP - General Family Medicine 04/16/13 Sera Forbes LSW Ui Engineer 09/26/22 Minerva Anderson MD [address] [place] [address] [place] [address] Physician Hematology/Oncology 10/01/22 Dania Key MD [address] [place] [address] [place] [address] Physician Radiation Oncology 10/01/22 Andree Hollis, 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.[employer] [address] [place] [address] Nurse Practitioner Hematology/Oncology 10/01/22 Denisha Duarte, [facility] [address] [place] [address] [place] [address] Specialty Sales Engineer [employer] Hematology/Oncology 10/01/22 Chelsie Kolb RN 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 02/18/23 02/19/28 Playground Monitor Relationship Specialty Start Date End Date Lorenzo Marin DO PCP - General Family Medicine 04/16/13 Sera Forbes LSW Ui Engineer 09/26/22 Minerva Anderson MD [address] [place] [address] [place] [address] Physician Hematology/Oncology 10/01/22 Dania Key MD [address] [place] [address] [place] [address] Physician Radiation Oncology 10/01/22 Andree Hollis, 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.[employer] [address] [place] [address] [place] [address] Nurse Practitioner Hematology/Oncology 10/01/22 Denisha Duarte, [facility] [address] [place] [address] Specialty Sales Engineer [employer] Hematology/Oncology 10/01/22 Chelsie Kolb, RN 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 02/18/23 02/19/28 Playground Monitor Relationship Specialty Start Date End Date Lorenzo Marin DO PCP - General Family Medicine 04/16/13 Sera Forbes LSW Ui Engineer 09/26/22 Minerva Anderson MD [address] [place] [address] [place] [id number] Physician Hematology/Oncology 10/01/22 Dania Key MD [address] [place] [address] [place] [address] Physician Radiation Oncology 10/01/22 Andree Hollis APRN.[employer] [address] [place] [address] [place] [id number] Nurse Practitioner Hematology/Oncology 10/01/22 Denisha Duarte, [facility] [address] [place] [address] Specialty Sales Engineer [employer] Hematology/Oncology 10/01/22 Chelsie Kolb, RN 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 02/18/23 02/19/28 Playground Monitor Relationship Specialty Start Date End Date Lorenzo Marin DO PCP - General Family Medicine 04/16/13 Sera Forbes LSW Ui Engineer 09/26/22 Minerva Anderson MD [address] [place] [address] [place] [id number] Physician Hematology/Oncology 10/01/22 Dania Key MD [address] [place] [address] [place] [address] Physician Radiation Oncology 10/01/22 Andree Hollis, 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.[employer] [address] [place] [address] [place] [id number] Nurse Practitioner Hematology/Oncology 10/01/22 Denisha Duarte, [facility] [address] [place] [address] [place] [id number] Specialty Sales Engineer [employer] Hematology/Oncology 10/01/22 Chelsie Kolb RN 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 02/18/23 02/19/28 Playground Monitor Relationship Specialty Start Date End Date Lorenzo Marin DO PCP - General Family Medicine 04/16/13 Sera Forbes LSW Ui Engineer 09/26/22 Minerva Anderson MD [address] [place] [address] [place] [address] Physician Hematology/Oncology 10/01/22 Dania Key MD [address] [place] [address] [place] [address] Physician Radiation Oncology 10/01/22 Andree Hollis, 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.[employer] [address] [place] [address] [place] [id number] Nurse Practitioner Hematology/Oncology 10/01/22 Denisha Duarte, [facility] [address] [place] [address] Specialty Sales Engineer [employer] Hematology/Oncology 10/01/22 Chelsie Kolb, RN 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 02/18/23 02/19/28 Playground Monitor Relationship Specialty Start Date End Date Lorenzo Marin DO PCP - General Family Medicine 04/16/13 Sera Forbes LSW Ui Engineer 09/26/22 Minerva Anderson MD [address] [facility] [address] Physician Hematology/Oncology 10/01/22 Dania Key MD [address] [place] [address] [place] [address] Physician Radiation Oncology 10/01/22 Andree Hollis APRN.[employer] [address] [place] [address] [place] [id number] Nurse Practitioner Hematology/Oncology 10/01/22 Denisha Duarte, [facility] [address] [place] [address] [place] [id number] Specialty Sales Engineer [employer] Hematology/Oncology 10/01/22 Chelsie Kolb, RN 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 02/18/23 02/19/28 Playground Monitor Relationship Specialty Start Date End Date Lorenzo Marin DO PCP - General Family Medicine 04/16/13 Sera Forbes LSW Ui Engineer 09/26/22 Minerva Anderson MD [address] [place] [address] Physician Hematology/Oncology 10/01/22 Dania Key MD [address] [place] [address] [place] [address] Physician Radiation Oncology 10/01/22 Andree Hollis, 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.[employer] [address] [place] [address] [place] [id number] Nurse Practitioner Hematology/Oncology 10/01/22 Denisha Duarte, [facility] [address] [place] [address] [place] [address] Specialty Sales Engineer [employer] Hematology/Oncology 10/01/22 Chelsie Kolb, RN 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 02/18/23 02/19/28 Playground Monitor Relationship Specialty Start Date End Date Lorenzo Marin DO PCP - General Family Medicine 04/16/13 Sera Forbes LSW Ui Engineer 09/26/22 Minerva Anderson MD [address] [place] [address] [place] [id number] Physician Hematology/Oncology 10/01/22 Dania Key MD [address] [place] [address] [place] [address] Physician Radiation Oncology 10/01/22 Andree Hollis, 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.[employer] [address] [place] [address] [place] [address] Nurse Practitioner Hematology/Oncology 10/01/22 Denisha Duarte, [facility] [address] [place] [address] [place] [id number] Specialty Sales Engineer [employer] Hematology/Oncology 10/01/22 Chelsie Kolb, RN 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 02/18/23 02/19/28 Playground Monitor Relationship Specialty Start Date End Date Lorenzo Marin DO PCP - General Family Medicine 04/16/13 Sera Forbes LSW Ui Engineer 09/26/22 Minerva Anderson MD [address] [place] [address] Physician Hematology/Oncology 10/01/22 Dania Key MD [address] [place] [address] [place] [address] Physician Radiation Oncology 10/01/22 Andree Hollis, 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.[employer] [address] [place] [address] Nurse Practitioner Hematology/Oncology 10/01/22 Denisha Duarte, [facility] [address] [place] [address] Specialty Sales Engineer [employer] Hematology/Oncology 10/01/22 Chelsie Kolb, [facility] 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 02/18/23 02/19/28 Playground Monitor Relationship Specialty Start Date End Date Lorenzo Marin DO PCP - General Family Medicine 04/16/13 Sera Forbes LSW Ui Engineer 09/26/22 Minerva Anderson MD [address] [place] [address] Physician Hematology/Oncology 10/01/22 Dania Key MD [address] [place] [address] Physician Radiation Oncology 10/01/22 Andree Hollis, 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.[employer] [address] [place] [address] [place] [id number] Nurse Practitioner Hematology/Oncology 10/01/22 Denisha Duarte, [facility] [address] [place] [address] Specialty Sales Engineer [employer] Hematology/Oncology 10/01/22 Chelsie Kolb, RN 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 02/18/23 02/19/28 Playground Monitor Relationship Specialty Start Date End Date Lorenzo Marin DO PCP - General Family Medicine 04/16/13 Sera Forbes LSW Ui Engineer 09/26/22 Minerva Anderson MD [address] [place] [address] [place] [id number] Physician Hematology/Oncology 10/01/22 Dania Key MD [address] [place] [address] [place] [address] Physician Radiation Oncology 10/01/22 Andree Hollis APRN.[employer] [address] [place] [address] [place] [address] Nurse Practitioner Hematology/Oncology 10/01/22 Denisha Duarte, [facility] [address] [place] [address] [place] [address] Specialty Sales Engineer [employer] Hematology/Oncology 10/01/22 Chelsie Kolb, RN 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 02/18/23 02/19/28 Playground Monitor Relationship Specialty Start Date End Date Lorenzo Marin DO PCP - General Family Medicine 04/16/13 Sera Forbes LSW Ui Engineer 09/26/22 Minerva Anderson MD [address] [facility] [place] [address] Physician Hematology/Oncology 10/01/22 Dania Key MD [address] [facility] [address] Physician Radiation Oncology 10/01/22 Andree Hollis, 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.[employer] ST[employer]GER [address] [facility] [place] [address] Nurse Practitioner Hematology/Oncology 10/01/22 Denisha Duarte, [facility] [address] [facility] [place] [address] Specialty Sales Engineer [employer] Hematology/Oncology 10/01/22 Chelsie Kolb RN 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 02/18/23 02/19/28 Playground Monitor Relationship Specialty Start Date End Date Lorenzo Marin DO PCP - General Family Medicine 04/16/13 Sera Forbes LSW Ui Engineer 09/26/22 Minerva Anderson MD [address] [place] [address] Physician Hematology/Oncology 10/01/22 Dania Key MD [address] [facility] [place] [address] Physician Radiation Oncology 10/01/22 Andree Hollis, 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.[employer] ST[employer]GER [address] [facility] [place] [address] Nurse Practitioner Hematology/Oncology 10/01/22 Denisha Duarte, [facility] [address] [facility] [place] [address] Specialty Sales Engineer [employer] Hematology/Oncology 10/01/22 Chelsie Kolb, RN 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 02/18/23 02/19/28 Playground Monitor Relationship Specialty Start Date End Date Lorenzo Marin DO PCP - General Family Medicine 04/16/13 Sera Forbes, [facility] Ui Engineer 09/26/22 Minerva Anderson MD [address] [place] [address] Physician Hematology/Oncology 10/01/22 Dania Key MD [address] [place] [address] Physician Radiation Oncology 10/01/22 Andree Hollis APRN.[employer] [address] [place] [address] Nurse Practitioner Hematology/Oncology 10/01/22 Denisha Duarte, [facility] [address] [place] [address] Specialty Sales Engineer [employer] Hematology/Oncology 10/01/22 Chelsie Kolb, RN 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 02/18/23 02/19/28 Playground Monitor Relationship Specialty Start Date End Date Lorenzo Marin DO PCP - General Family Medicine 04/16/13 Sera Forbes, [facility] Ui Engineer 09/26/22 Minerva Anderson MD [address] [place] [address] Physician Hematology/Oncology 10/01/22 Dania Key MD [address] [place] [address] Physician Radiation Oncology 10/01/22 Andree Hollis, 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.[employer] [address] [place] [address] Nurse Practitioner Hematology/Oncology 10/01/22 Denisha Duarte, [facility] [address] [place] [address] Specialty Sales Engineer [employer] Hematology/Oncology 10/01/22 Chelsie Kolb, RN 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 02/18/23 02/19/28 Playground Monitor Relationship Specialty Start Date End Date Lorenzo Marin DO PCP - General Family Medicine 04/16/13 Sera Forbes LSW Ui Engineer 09/26/22 Minerva Anderson MD [address] [place] [address] [place] [address] Physician Hematology/Oncology 10/01/22 Dania Key MD [address] [place] [address] Physician Radiation Oncology 10/01/22 Andree Hollis APRN.[employer] [address] [place] [address] Nurse Practitioner Hematology/Oncology 10/01/22 Denisha Duarte, [facility] [address] [place] [address] Specialty Sales Engineer [employer] Hematology/Oncology 10/01/22 Kolb, Chelsie M, RN 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 02/18/23 02/19/28 Playground Monitor Relationship Specialty Start Date End Date Lorenzo Marin DO PCP - General Family Medicine 04/16/13 Sera Forbes LSW Ui Engineer 09/26/22 Minerva Anderson MD [address] [place] [address] Physician Hematology/Oncology 10/01/22 Dania Key MD [address] [place] [address] [place] [address] Physician Radiation Oncology 10/01/22 Andree Hollis APRN.[employer] [address] [place] [address] Nurse Practitioner Hematology/Oncology 10/01/22 Denisha Duarte, [facility] [address] [place] [address] Specialty Sales Engineer [employer] Hematology/Oncology 10/01/22 Chelsie Kolb, RN 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 02/18/23 02/19/28 Playground Monitor Relationship Specialty Start Date End Date Lorenzo Marin DO PCP - General Family Medicine 04/16/13 Sera Forbes LSW Ui Engineer 09/26/22 Minerva Anderson MD [address] [place] [address] Physician Hematology/Oncology 10/01/22 Dania Key MD [address] [place] [address] Physician Radiation Oncology 10/01/22 Andree Hollis, 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.[employer] [address] [place] [address] [place] [address] Nurse Practitioner Hematology/Oncology 10/01/22 Denisha Duarte, [facility] [address] [place] [address] Specialty Sales Engineer [employer] Hematology/Oncology 10/01/22 Chelsie Kolb, RN 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 02/18/23 02/19/28 Playground Monitor Relationship Specialty Start Date End Date Lorenzo Marin DO PCP - General Family Medicine 04/16/13 Sera Forbes LSW Ui Engineer 09/26/22 Minerva Anderson MD [address] [place] [address] [place] [id number] Physician Hematology/Oncology 10/01/22 Dania Key MD [address] [place] [address] [place] [address] Physician Radiation Oncology 10/01/22 Andree Hollis, 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.[employer] [address] [place] [address] [place] [address] Nurse Practitioner Hematology/Oncology 10/01/22 Denisha Duarte, [facility] [address] [place] [address] Specialty Sales Engineer [employer] Hematology/Oncology 10/01/22 Chelsie Kolb, RN 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 02/18/23 02/19/28 Playground Monitor Relationship Specialty Start Date End Date Lorenzo Marin DO PCP - General Family Medicine 04/16/13 Sera Forbes LSW Ui Engineer 09/26/22 Minerva Anderson MD [address] [place] [address] [place] [address] Physician Hematology/Oncology 10/01/22 Dania Key MD [address] [place] [address] [place] [address] Physician Radiation Oncology 10/01/22 Andree Hollis, [employer] ST[employer] [address] [place] [address] [place] [address] Nurse Practitioner Hematology/Oncology 10/01/22 Denisha Duarte, ALEXUS [address] [place] [address] [place] [address] Specialty Sales Engineer [employer] Hematology/Oncology 10/01/22 Chelsie Kolb, [facility]US 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 02/18/23 02/19/28 Playground Monitor Relationship Specialty Start Date End Date Lorenzo Marin DO PCP - General Family Medicine 04/16/13 Sera Forbes LSW Ui Engineer 09/26/22 Minerva Anderson MD [address] [place] [address] [place] [address] Physician Hematology/Oncology 10/01/22 Dania Key MD [address] [place] [address] [place] [address] Physician Radiation Oncology 10/01/22 Andree Hollis, [employer] ST[employer] [address] [place] [address] [place] [address] Nurse Practitioner Hematology/Oncology 10/01/22 Denisha Duarte, ALEXUS [address] [place] [address] [place] [address] Specialty Sales Engineer [employer] Hematology/Oncology 10/01/22 Chelsie Kolb, RN 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 02/18/23 02/19/28 Playground Monitor Relationship Specialty Start Date End Date Lorenzo Marin DO PCP - General Family Medicine 04/16/13 Sera Forbes LSW Ui Engineer 09/26/22 Minerva Anderson MD [address] [place] [address] [place] [address] Physician Hematology/Oncology 10/01/22 Dania Key MD [address] [place] [address] [place] [id number] Physician Radiation Oncology 10/01/22 Andree Hollis APRN.[employer] [address] [place] [address] [place] [address] Nurse Practitioner Hematology/Oncology 10/01/22 Denisha Duarte, ALEXUS [address] [place] [address] [place] [id number] Specialty Sales Engineer [employer] Hematology/Oncology 10/01/22 Chelsie Kolb, RN 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 02/18/23 02/19/28 Playground Monitor Relationship Specialty Start Date End Date Lorenzo Marin DO PCP - General Family Medicine 04/16/13 Sera Forbes LSW Ui Engineer 09/26/22 Minerva Anderson MD [address] [place] [address] Physician Hematology/Oncology 10/01/22 Dania Key MD [address] [place] [address] [place] [address] Physician Radiation Oncology 10/01/22 Andree Hollis, 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.GROCERY STORE BAGGER [address] [place] [address] [place] [address] Nurse Practitioner Hematology/Oncology 10/01/22 Denisha Duarte, ALEXUS [address] [place] [address] Specialty Sales Engineer [employer] Hematology/Oncology 10/01/22 Chelsie Kolb RN 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 02/18/23 02/19/28 Playground Monitor Relationship Specialty Start Date End Date Lorenzo Marin DO PCP - General Family Medicine 04/16/13 Sera Forbes LSW Ui Engineer 09/26/22 Minerva Anderson MD [address] [place] [address] [place] [address] Physician Hematology/Oncology 10/01/22 Dania Key MD [address] [place] [address] [place] [address] Physician Radiation Oncology 10/01/22 Andree Hollis, 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.GROCERY STORE BAGGER [address] [place] [address] [place] [address] Nurse Practitioner Hematology/Oncology 10/01/22 Denisha Duarte, ALEXUS [address] [place] [address] Specialty Sales Engineer [employer] Hematology/Oncology 10/01/22 Chelsie Kolb, RN 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 02/18/23 02/19/28 Playground Monitor Relationship Specialty Start Date End Date Lorenzo Marin DO PCP - General Family Medicine 04/16/13 Sera Forbes LSW Ui Engineer 09/26/22 Minerva Anderson MD [address] [facility] [place] [address] Physician Hematology/Oncology 10/01/22 Dania Key MD [address] [place] [address] Physician Radiation Oncology 10/01/22 Andree Hollis APRN.[employer] STORE BAGGER [address] [place] [address] Nurse Practitioner Hematology/Oncology 10/01/22 Denisha Duarte, ALEXUS [address] [facility] [place] [address] Specialty Sales Engineer [employer] Hematology/Oncology 10/01/22 Chelsie Kolb, RN 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 02/18/23 02/19/28 Playground Monitor Relationship Specialty Start Date End Date Lorenzo Marin DO PCP - General Family Medicine 04/16/13 Sera Forbes LSW Ui Engineer 09/26/22 Minerva Anderson MD [address] [place] [address] Physician Hematology/Oncology 10/01/22 Dania Key MD [address] [place] [address] Physician Radiation Oncology 10/01/22 Andree Hollis, 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.GROCERY STORE BAGGER [address] [place] [address] Nurse Practitioner Hematology/Oncology 10/01/22 Denisha Duarte, ALEXUS [address] [place] [address] Specialty Sales Engineer [employer] Hematology/Oncology 10/01/22 Chelsie Kolb RN 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 02/18/23 02/19/28 Playground Monitor Relationship Specialty Start Date End Date Lorenzo Marin DO PCP - General Family Medicine 04/16/13 Sera Forbes LSW Ui Engineer 09/26/22 Minerva Anderson MD [address] [place] [address] Physician Hematology/Oncology 10/01/22 Dania Key MD [address] [place] [address] Physician Radiation Oncology 10/01/22 Andree Hollis, 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.GROCERY STORE BAGGER [address] [place] [address] Nurse Practitioner Hematology/Oncology 10/01/22 Denisha Duarte, RN [address] [place] [address] Specialty Sales Engineer [employer] Hematology/Oncology 10/01/22 Playground Monitor Relationship Specialty Start Date End Date Lorenzo Marin DO PCP - General Family Medicine 04/16/13 Playground Monitor Relationship Specialty Start Date End Date Lorenzo Marin DO PCP - General Family Medicine 04/16/13 Playground Monitor Relationship Specialty Start Date End Date Lorenzo Marin DO PCP - General Family Medicine 04/16/13 Sera Forbes LSW Ui Engineer 09/26/22 Minerva Anderson MD [address] [place] [address] [place] [address] Physician Hematology/Oncology 10/01/22 Dania Key MD [address] [place] [address] [place] [address] Physician Radiation Oncology 10/01/22 Andree Hollis APRN.GR[employer] STORE BAGGER [address] [place] [address] [place] [address] Nurse Practitioner Hematology/Oncology 10/01/22 Denisha Duarte, ALEXUS [address] [place] [address] [place] [address] Specialty Sales Engineer [employer] Hematology/Oncology 10/01/22 Chelise Kolb, RN 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 02/18/23 02/19/28 Playground Monitor Relationship Specialty Start Date End Date Lorenzo Marin DO PCP - General Family Medicine 04/16/13 Sera Forbes LSW Ui Engineer 09/26/22 Minerva Anderson MD [address] [place] [address] Physician Hematology/Oncology 10/01/22 Dania Key MD [address] [place] [address] [place] [address] Physician Radiation Oncology 10/01/22 Andree Hollis, 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.GROCERY STORE BAGGER [address] [place] [address] [place] [address] Nurse Practitioner Hematology/Oncology 10/01/22 Denisha Duarte, ALEXUS [address] [place] [address] Specialty Sales Engineer [employer] Hematology/Oncology 10/01/22 Chelsie Kolb RN 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 02/18/23 02/19/28 Playground Monitor Relationship Specialty Start Date End Date Lorenzo Marin DO PCP - General Family Medicine 04/16/13 Sera Forbes LSW Ui Engineer 09/26/22 Minerva Anderson MD [address] [place] [address] [place] [address] Physician Hematology/Oncology 10/01/22 Dania Key MD [address] [place] [address] [place] [address] Physician Radiation Oncology 10/01/22 Andree Hollis, 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.GROCERY STORE BAGGER [address] [place] [address] [place] [address] Nurse Practitioner Hematology/Oncology 10/01/22 Denisha Duarte, ALEXUS [address] [place] [address] Specialty Sales Engineer [employer] Hematology/Oncology 10/01/22 08/11/24 Chelsie Kolb, RN 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 02/18/23 02/19/28 Playground Monitor Relationship Specialty Start Date End Date Lorenzo Marin DO PCP - General Family Medicine 04/16/13 Sera Forbes LSW Ui Engineer 09/26/22 Minerva Anderson MD [address] [facility] [place] [address] Physician Hematology/Oncology 10/01/22 Dania Key MD [address] [place], [place] [address] [facility] [place] [address] Physician Radiation Oncology 10/01/22 Andree Hollis, AZAEL.GROCERY STORE BAGGER [address] [place] [address] [place] [address] Nurse Practitioner Hematology/Oncology 10/01/22 Chelsie Kolb, RN 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 02/18/23 02/19/28 Playground Monitor Relationship Specialty Start Date End Date Lorenzo Marin DO PCP - General Family Medicine 04/16/13 Sera Forbes MEDICAL IMAGING TECH Ui Engineer 09/26/22 Minerva Anderson MD [address] [facility] [place] [address] Physician Hematology/Oncology 10/01/22 Dania Key MD [address] [facility] [place] [address] Physician Radiation Oncology 10/01/22 Andree Hollis APRN.GROC[employer] STORE BAGGER [address] [facility] [place] [address] Nurse Practitioner Hematology/Oncology 10/01/22 Chelsie Kolb, RN 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 02/18/23 02/19/28 Playground Monitor Relationship Specialty Start Date End Date Lorenzo Marin DO PCP - General Family Medicine 04/16/13 Sera Forbes, MEDICAL IMAGING TECH Ui Engineer 09/26/22 Minerva Anderson MD [address] [facility] [place] [address] Physician Hematology/Oncology 10/01/22 Dania Key MD [address] [facility] [place] [address] Physician Radiation Oncology 10/01/22 Andree Hollis, 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.GROCERY STORE BAGGER [address] [place] [address] Nurse Practitioner Hematology/Oncology 10/01/22 Chelsie Kolb, RN 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 02/18/23 02/19/28 Playground Monitor Relationship Specialty Start Date End Date Lorenzo Marin DO PCP - General Family Medicine 04/16/13 Sera Forbes LSW Ui Engineer 09/26/22 Minerva Anderson MD [address] [facility] [place] [address] Physician Hematology/Oncology 10/01/22 Dania Key MD [address] [facility] [place] [address] Physician Radiation Oncology 10/01/22 Andree Hollis, 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.GROCERY STORE BAGGER [address] [place] [address] Nurse Practitioner Hematology/Oncology 10/01/22 Chelsie Kolb, RN 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 02/18/23 02/19/28 Playground Monitor Relationship Specialty Start Date End Date Lorenzo Marin DO PCP - General Family Medicine 04/16/13 Sera Forbes LSW Ui Engineer 09/26/22 Minerva Anderson MD [address] [place] [address] [place] [address] Physician Hematology/Oncology 10/01/22 Dania Key MD [address] [place] [address] [place] [address] Physician Radiation Oncology 10/01/22 Andree Hollis, 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.GROCERY STORE BAGGER [address] [place] [address] [place] [address] Nurse Practitioner Hematology/Oncology 10/01/22 Chelsie Kolb, RN 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 02/18/23 02/19/28 Playground Monitor Relationship Specialty Start Date End Date Lorenzo Marin DO PCP - General Family Medicine 04/16/13 Sera Forbes LSW Ui Engineer 09/26/22 Minerva Anderson MD [address] [place] [address] [place] [address] Physician Hematology/Oncology 10/01/22 Dania Key MD [address] [place] [address] Physician Radiation Oncology 10/01/22 Andree Hollis, 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.GROCERY STORE BAGGER [address] [place] [address] Nurse Practitioner Hematology/Oncology 10/01/22 Chelsie Kolb, RN 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 02/18/23 02/19/28 Playground Monitor Relationship Specialty Start Date End Date Lorenzo Marin DO PCP - General Family Medicine 04/16/13 Sera Forbes, MEDICAL IMAGING TECH Ui Engineer 09/26/22 Minerva Anderson MD [address] [place] [address] Physician Hematology/Oncology 10/01/22 Dania Key MD [address] [place] [address] Physician Radiation Oncology 10/01/22 Andree Hollis, 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.GROCERY STORE BAGGER [address] [place] [address] Nurse Practitioner Hematology/Oncology 10/01/22 Chelsie Kolb, RN 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 02/18/23 02/19/28 Playground Monitor Relationship Specialty Start Date End Date Lorenzo Marin DO PCP - General Family Medicine 04/16/13 Sera Forbes, MEDICAL IMAGING TECH Ui Engineer 09/26/22 iMnerva Anderson MD [address] [place] [address] Physician Hematology/Oncology 10/01/22 Dania Key MD [address] [place] [address] Physician Radiation Oncology 10/01/22 Andree Hollis, 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.GROCERY STORE BAGGER [address] [place] [address] Nurse Practitioner Hematology/Oncology 10/01/22 Chelsie Kolb, RN 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 02/18/23 02/19/28 Playground Monitor Relationship Specialty Start Date End Date Lorenzo Marin DO PCP - General Family Medicine 04/16/13 Sera Forbes LSW Ui Engineer 09/26/22 Minerva Anderson MD [address] [place] [address] [place] [address] Physician Hematology/Oncology 10/01/22 Dania Key MD [address] [place] [address] Physician Radiation Oncology 10/01/22 Andree Hollis, 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.GROCERY STORE BAGGER [address] [place] [address] Nurse Practitioner Hematology/Oncology 10/01/22 Cheslie Kolb, RN 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 02/18/23 02/19/28 Playground Monitor Relationship Specialty Start Date End Date Lorenzo Marin DO PCP - General Family Medicine 04/16/13 Sera Forbes LSW Ui Engineer 09/26/22 Minerva Anderson MD [address] [place] [address] Physician Hematology/Oncology 10/01/22 Dania Key MD [address] [place] [address] [place] [address] Physician Radiation Oncology 10/01/22 Andree Hollis, 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.GROCERY STORE BAGGER [address] [place] [address] [place] [address] Nurse Practitioner Hematology/Oncology 10/01/22 Chelsie Kolb, RN 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 02/18/23 02/19/28 Playground Monitor Relationship Specialty Start Date End Date Lorenzo Marin DO PCP - General Family Medicine 04/16/13 Sera Forbes LSW Ui Engineer 09/26/22 Minerva Anderson MD [address] [place] [address] [place] [address] Physician Hematology/Oncology 10/01/22 Dania Key MD [address] [place] [address] [place] [address] Physician Radiation Oncology 10/01/22 Andree Hollis, 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.GROCERY STORE BAGGER [address] [place] [address] Nurse Practitioner Hematology/Oncology 10/01/22 Chelsie Kolb, RN 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 02/18/23 02/19/28 Playground Monitor Relationship Specialty Start Date End Date Lorenzo Marin DO PCP - General Family Medicine 04/16/13 Sera Forbes LSW Ui Engineer 09/26/22 Minerva Anderson MD [address] [place] [address] Physician Hematology/Oncology 10/01/22 Dania Key MD [address] [place] [address] Physician Radiation Oncology 10/01/22 Andree Hollis, 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.GROCERY STORE BAGGER [address] [place] [address] Nurse Practitioner Hematology/Oncology 10/01/22 Chelsie Kolb, RN 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 02/18/23 02/19/28 Playground Monitor Relationship Specialty Start Date End Date Lorenzo Marin DO PCP - General Family Medicine 04/16/13 Sera Forbes LSW Ui Engineer 09/26/22 Minerva Anderson MD [address] [place] [address] Physician Hematology/Oncology 10/01/22 Dania Key MD [address] [place] [address] Physician Radiation Oncology 10/01/22 Andree Hollis, 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.GROCERY STORE BAGGER [address] [place] [address] Nurse Practitioner Hematology/Oncology 10/01/22 Chelsie Kolb, RN 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 02/18/23 02/19/28 Playground Monitor Relationship Specialty Start Date End Date Lorenzo Marin DO PCP - General Family Medicine 04/16/13 Sera Forbes LSW Ui Engineer 09/26/22 Minerva Anderson MD [address] [place] [address] [place] [address] Physician Hematology/Oncology 10/01/22 Dania Key MD [address] [place] [address] [place] [address] Physician Radiation Oncology 10/01/22 Andree Hollis APRN.[facility] [address] [place] [address] [place] [address] Nurse Practitioner Hematology/Oncology 10/01/22 Chelsie Kolb, RN 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 02/18/23 02/19/28 Playground Monitor Relationship Specialty Start Date End Date Lorenzo Marin DO [address] [place] [address] PCP - General Family Medicine 07/10/23 Playground Monitor Relationship Specialty Start Date End Date Lorenzo Marin MD [address] [place] [id number] PCP - General Wheel Mill Operator 05/02/23 Playground Monitor Relationship Specialty Start Date End Date Lorenzo Marin MD [address] [place] [id number] PCP - General Wheel Mill Operator 05/02/23 Playground Monitor Relationship Specialty Start Date End Date Lorenzo Marin MD [address] [place] [id number] PCP - General Wheel Mill Operator 05/02/23 Playground Monitor Relationship Specialty Start Date End Date Lorenzo Marin DO [address] [place] [address] PCP - General Family Medicine 07/10/23 Playground Monitor Relationship Specialty Start Date End Date Lorenzo Marin DO PCP - General Family Medicine 04/16/13 Sera Forbes [facility] Ui Engineer 09/26/22 Minerva Anderson MD [address] [facility] [place] [address] Physician Hematology/Oncology 10/01/22 Dania Key MD [address] [facility] [place] [address] Physician Radiation Oncology 10/01/22 Andree Hollis, AZAEL.GROCERY STORE BAGGER [address] [facility] [place] [address] Nurse Practitioner Hematology/Oncology 10/01/22 Chelsie Kolb, ALEXUS 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 02/18/23 02/19/28 Playground Monitor Relationship Specialty Start Date End Date Lorenzo Marin DO PCP - General Family Medicine 04/16/13 Sera Forbes [facility] Ui Engineer 09/26/22 Minerva Anderson MD [address] [facility] [place] [address] Physician Hematology/Oncology 10/01/22 Dania Key MD [address] [place] [address] Physician Radiation Oncology 10/01/22 Andree Hollis APRN.GR[employer] STORE BAGGER [address] [facility] [place] [address] Nurse Practitioner Hematology/Oncology 10/01/22 Chelsie Kolb, RN 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 02/18/23 02/19/28 Playground Monitor Relationship Specialty Start Date End Date Lorenzo Marin DO PCP - General Family Medicine 04/16/13 Sera Forbes LSW Ui Engineer 09/26/22 Minerva Anderson MD [address] [facility] [place] [address] Physician Hematology/Oncology 10/01/22 Dania Key MD [address] [facility] [place] [address] Physician Radiation Oncology 10/01/22 Andree Hollis, 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.GROCERY STORE BAGGER [address] [place] [address] Nurse Practitioner Hematology/Oncology 10/01/22 Chelsie Kolb, RN 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 02/18/23 02/19/28 Playground Monitor Relationship Specialty Start Date End Date Lorenzo Marin DO PCP - General Family Medicine 04/16/13 Sera Forbes LSW Ui Engineer 09/26/22 Minerva Anderson MD [address] [facility] [place] [address] Physician Hematology/Oncology 10/01/22 Dania Key MD [address] [facility] [place] [address] Physician Radiation Oncology 10/01/22 Andree Hollis, 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.GROCERY STORE BAGGER [address] [place] [address] [place] [address] Nurse Practitioner Hematology/Oncology 10/01/22 Chelsie Kolb, RN 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 02/18/23 02/19/28 Playground Monitor Relationship Specialty Start Date End Date Lorenzo Marin DO PCP - General Family Medicine 04/16/13 Sera Forbes LSW Ui Engineer 09/26/22 Minerva Anderson MD [address] [place] [address] [place] [address] Physician Hematology/Oncology 10/01/22 Dania Key MD [address] [place] [address] [place] [address] Physician Radiation Oncology 10/01/22 Andree Hollis, 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.GROCERY STORE BAGGER [address] [place] [address] [place] [address] Nurse Practitioner Hematology/Oncology 10/01/22 Chelsie Kolb RN 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 02/18/23 02/19/28 Playground Monitor Relationship Specialty Start Date End Date Lorenzo Marin DO PCP - General Family Medicine 04/16/13 Sera Forbes LSW Ui Engineer 09/26/22 Minerva Anderson MD [address] [place] [address] [place] [address] Physician Hematology/Oncology 10/01/22 Dania Key MD [address] [place] [address] Physician Radiation Oncology 10/01/22 Andree Hollis, AZAEL.GROCERY STORE BAGGER [address] [place] [address] Nurse Practitioner Hematology/Oncology 10/01/22 Chelsie Kolb, RN 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 02/18/23 02/19/28 Playground Monitor Relationship Specialty Start Date End Date Lorenzo Marin DO [address] [place] [address] PCP - General Family Medicine 07/10/23 Playground Monitor Relationship Specialty Start Date End Date Lorenzo Marin DO PCP - General Family Medicine 04/16/13 Sera Forbes LSW Ui Engineer 09/26/22 Minerva Anderson MD [address] [place] [address] Physician Hematology/Oncology 10/01/22 Dania Key MD [address] [place] [address] Physician Radiation Oncology 10/01/22 Andree Hollis, 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.GROCERY STORE BAGGER [address] [place] [address] Nurse Practitioner Hematology/Oncology 10/01/22 Chelsie Kolb, RN 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 02/18/23 02/19/28 Playground Monitor Relationship Specialty Start Date End Date Lorenzo Marin DO PCP - General Family Medicine 04/16/13 Sera Forbes LSW Ui Engineer 09/26/22 Minerva Anderson MD [address] [place] [address] [place] [address] Physician Hematology/Oncology 10/01/22 Dania Key MD [address] [place] [address] Physician Radiation Oncology 10/01/22 Andree Hollis, 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.GROCERY STORE BAGGER [address] [place] [address] [place] [address] Nurse Practitioner Hematology/Oncology 10/01/22 Chelsie Kolb, RN 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 02/18/23 02/19/28 Playground Monitor Relationship Specialty Start Date End Date Lorenzo Marin DO PCP - General Family Medicine 04/16/13 Sera Forbes LSW Ui Engineer 09/26/22 Minerva Anderson MD [address] [place] [address] [place] [address] Physician Hematology/Oncology 10/01/22 Dania Key MD [address] [place] [address] [place] [address] Physician Radiation Oncology 10/01/22 Andree Hollis, AZAEL.GROCERY STORE BAGGER [address] [place] [address] Nurse Practitioner Hematology/Oncology 10/01/22 Chelsie Kolb, RN 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 02/18/23 02/19/28 Playground Monitor Relationship Specialty Start Date End Date Lorenzo Marin DO PCP - General Family Medicine 04/16/13 Sera Forbes, [facility] Ui Engineer 09/26/22 Minerva Anderson MD [address] [place] [address] Physician Hematology/Oncology 10/01/22 Dania Key MD [address] [place] [address] Physician Radiation Oncology 10/01/22 Andree Hollis APRN.[facility] [address] [place] [address] [place] [address] Nurse Practitioner Hematology/Oncology 10/01/22 Chelsie Kolb, ALEXUS 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 02/18/23 02/19/28 Team Status: Inactive Member Role Status Dates Lorenzo Marin DO Primary Care Provider Active Start: March 18, 2025 End: March 18, 2025 Adam Patel MD Attending Provider Active S tart: March 18, 2025 End: March 18, 2025 Playground Monitor Relationship Specialty Start Date End Date Lorenzo Marin DO PCP - General Family Medicine 04/16/13 Sera Forbes, [facility] Ui Engineer 09/26/22 Minerva Anderson MD [address] [place] [address] Physician Hematology/Oncology 10/01/22 Dania Key MD [address] [place] [address] Physician Radiation Oncology 10/01/22 Andree Hollis APRN.[employer] [address] [place] [address] Nurse Practitioner Hematology/Oncology 10/01/22 Chelsie Kolb, RN 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 02/18/23 02/19/28 Playground Monitor Relationship Specialty Start Date End Date Lorenzo Marin MD [address] [place] [address] PCP - General Wheel Mill Operator 05/02/23 Playground Monitor Relationship Specialty Start Date End Date Lorenzo Marin MD [address] [place] [address] PCP - General Wheel Mill Operator 05/02/23 Playground Monitor Relationship Specialty Start Date End Date Lorenzo Marin DO PCP - General Family Medicine 04/16/13 Sera Forbes LSW Ui Engineer 09/26/22 Dania Key MD [address] [place] [address] Physician Radiation Oncology 10/01/22 Andree Hollis, 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.[employer] [address] [place] [address] Nurse Practitioner Hematology/Oncology 10/01/22 Chelsie Kolb, RN 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 02/18/23 02/19/28 Source Comments (unrecognize d section and content) In the event this informatio n is protected by the Federal Confidentiality of Alcohol and Drug Abuse Patient Records regulations: The Federal rules restrict any use of the information to criminally investigate or prosecute any alcohol or drug abuse patient.[facility]In the event this information is protected by the Federal Confidentiality of Alcohol and Drug Abuse Patient Records regulations: The Federal rules restrict any use of the information to criminally investigate or prosecute any alcohol or drug abuse patient.[facility] CenterIn the event this information is protected by the Federal Confidentiality of Alcohol and Drug Abuse Patient Records regulations: The Federal rules restrict any use of the information to criminally investigate or prosecute any alcohol or drug abuse patient.[facility] CenterIn the event this information is protected by the Federal Confidentiality of Alcohol and Drug Abuse Patient Records regulations: The Federal rules restrict any use of the information to criminally investigate or prosecute any alcohol or drug abuse patient.[facility] CenterIn the event this information is protected by the Federal Confidentiality of Alcohol and Drug Abuse Patient Records regulations: The Federal rules restrict any use of the information to criminally investigate or prosecute any alcohol or drug abuse patient.[facility] CenterIn the event this information is protected by the Federal Confidentiality of Alcohol and Drug Abuse Patient Records regulations: The Federal rules restrict any use of the information to criminally investigate or prosecute any alcohol or drug abuse patient.[facility] CenterIn the event this information is protected by the Federal Confidentiality of Alcohol and Drug Abuse Patient Records regulations: The Federal rules restrict any use of the information to criminally investigate or prosecute any alcohol or drug abuse patient.[facility] CenterIn the event this information is protected by the Federal Confidentiality of Alcohol and Drug Abuse Patient Records regulations: The Federal rules restrict any use of the information to criminally investigate or prosecute any alcohol or drug abuse patient.[facility] CenterIn the event this information is protected by the Federal Confidentiality of Alcohol and Drug Abuse Patient Records regulations: The Federal rules restrict any use of the information to criminally investigate or prosecute any alcohol or drug abuse patient.[facility] the event this information is protected by the Federal Confidentiality of Alcohol and Drug Abuse Patient Records regulations: The Federal rules restrict any use of the information to criminally investigate or prosecute any alcohol or drug abuse patient.[facility] CenterIn the event this information is protected by the Federal Confidentiality of Alcohol and Drug Abuse Patient Records regulations: The Federal rules restrict any use of the information to criminally investigate or prosecute any alcohol or drug abuse patient.[facility] CenterIn the event this information is protected by the Federal Confidentiality of Alcohol and Drug Abuse Patient Records regulations: The Federal rules restrict any use of the information to criminally investigate or prosecute any alcohol or drug abuse patient.[facility] CenterIn the event this information is protected by the Federal Confidentiality of Alcohol and Drug Abuse Patient Records regulations: The Federal rules restrict any use of the information to criminally investigate or prosecute any alcohol or drug abuse patient.[facility] CenterIn the event this information is protected by the Federal Confidentiality of Alcohol and Drug Abuse Patient Records regulations: The Federal rules restrict any use of the information to criminally investigate or prosecute any alcohol or drug abuse patient.[facility] CenterIn the event this information is protected by the Federal Confidentiality of Alcohol and Drug Abuse Patient Records regulations: The Federal rules restrict any use of the information to criminally investigate or prosecute any alcohol or drug abuse patient.[facility] CenterIn the event this information is protected by the Federal Confidentiality of Alcohol and Drug Abuse Patient Records regulations: The Federal rules restrict any use of the information to criminally investigate or prosecute any alcohol or drug abuse patient.[facility] CenterIn the event this information is protected by the Federal Confidentiality of Alcohol and Drug Abuse Patient Records regulations: The Federal rules restrict any use of the information to criminally investigate or prosecute any alcohol or drug abuse patient.[facility] CenterIn the event this information is protected by the Federal Confidentiality of Alcohol and Drug Abuse Patient Records regulations: The Federal rules restrict any use of the information to criminally investigate or prosecute any alcohol or drug abuse patient.[facility] CenterIn the event this information is protected by the Federal Confidentiality of Alcohol and Drug Abuse Patient Records regulations: The Federal rules restrict any use of the information to criminally investigate or prosecute any alcohol or drug abuse patient.[facility] CenterIn the event this information is protected by the Federal Confidentiality of Alcohol and Drug Abuse Patient Records regulations: The Federal rules restrict any use of the information to criminally investigate or prosecute any alcohol or drug abuse patient.[facility] CenterIn the event this information is protected by the Federal Confidentiality of Alcohol and Drug Abuse Patient Records regulations: The Federal rules restrict any use of the information to criminally investigate or prosecute any alcohol or drug abuse patient.[facility] CenterIn the event this information is protected by the Federal Confidentiality of Alcohol and Drug Abuse Patient Records regulations: The Federal rules restrict any use of the information to criminally investigate or prosecute any alcohol or drug abuse patient.[facility] CenterIn the event this information is protected by the Federal Confidentiality of Alcohol and Drug Abuse Patient Records regulations: The Federal rules restrict any use of the information to criminally investigate or prosecute any alcohol or drug abuse patient.[facility] CenterIn the event this information is protected by the Federal Confidentiality of Alcohol and Drug Abuse Patient Records regulations: The Federal rules restrict any use of the information to criminally investigate or prosecute any alcohol or drug abuse patient.[facility] CenterIn the event this information is protected by the Federal Confidentiality of Alcohol and Drug Abuse Patient Records regulations: The Federal rules restrict any use of the information to criminally investigate or prosecute any alcohol or drug abuse patient.[facility] CenterIn the event this information is protected by the Federal Confidentiality of Alcohol and Drug Abuse Patient Records regulations: The Federal rules restrict any use of the information to criminally investigate or prosecute any alcohol or drug abuse patient.[facility] CenterIn the event this information is protected by the Federal Confidentiality of Alcohol and Drug Abuse Patient Records regulations: The Federal rules restrict any use of the information to criminally investigate or prosecute any alcohol or drug abuse patient.[facility] CenterIn the event this information is protected by the Federal Confidentiality of Alcohol and Drug Abuse Patient Records regulations: The Federal rules restrict any use of the information to criminally investigate or prosecute any alcohol or drug abuse patient.[facility] CenterIn the event this information is protected by the Federal Confidentiality of Alcohol and Drug Abuse Patient Records regulations: The Federal rules restrict any use of the information to criminally investigate or prosecute any alcohol or drug abuse patient.[facility] CenterIn the event this information is protected by the Federal Confidentiality of Alcohol and Drug Abuse Patient Records regulations: The Federal rules restrict any use of the information to criminally investigate or prosecute any alcohol or drug abuse patient.[facility] CenterIn the event this information is protected by the Federal Confidentiality of Alcohol and Drug Abuse Patient Records regulations: The Federal rules restrict any use of the information to criminally investigate or prosecute any alcohol or drug abuse patient.[facility] CenterIn the event this information is protected by the Federal Confidentiality of Alcohol and Drug Abuse Patient Records regulations: The Federal rules restrict any use of the information to criminally investigate or prosecute any alcohol or drug abuse patient.[facility] CenterIn the event this information is protected by the Federal Confidentiality of Alcohol and Drug Abuse Patient Records regulations: The Federal rules restrict any use of the information to criminally investigate or prosecute any alcohol or drug abuse patient.[facility] CenterIn the event this information is protected by the Federal Confidentiality of Alcohol and Drug Abuse Patient Records regulations: The Federal rules restrict any use of the information to criminally investigate or prosecute any alcohol or drug abuse patient.[facility] CenterIn the event this information is protected by the Federal Confidentiality of Alcohol and Drug Abuse Patient Records regulations: The Federal rules restrict any use of the information to criminally investigate or prosecute any alcohol or drug abuse patient.[facility] CenterIn the event this information is protected by the Federal Confidentiality of Alcohol and Drug Abuse Patient Records regulations: The Federal rules restrict any use of the information to criminally investigate or prosecute any alcohol or drug abuse patient.[facility] CenterIn the event this information is protected by the Federal Confidentiality of Alcohol and Drug Abuse Patient Records regulations: The Federal rules restrict any use of the information to criminally investigate or prosecute any alcohol or drug abuse patient.[facility] CenterIn the event this information is protected by the Federal Confidentiality of Alcohol and Drug Abuse Patient Records regulations: The Federal rules restrict any use of the information to criminally investigate or prosecute any alcohol or drug abuse patient.[facility] CenterIn the event this information is protected by the Federal Confidentiality of Alcohol and Drug Abuse Patient Records regulations: The Federal rules restrict any use of the information to criminally investigate or prosecute any alcohol or drug abuse patient.[facility] CenterIn the event this information is protected by the Federal Confidentiality of Alcohol and Drug Abuse Patient Records regulations: The Federal rules restrict any use of the information to criminally investigate or prosecute any alcohol or drug abuse patient.[facility] CenterIn the event this information is protected by the Federal Confidentiality of Alcohol and Drug Abuse Patient Records regulations: The Federal rules restrict any use of the information to criminally investigate or prosecute any alcohol or drug abuse patient.[facility] CenterIn the event this information is protected by the Federal Confidentiality of Alcohol and Drug Abuse Patient Records regulations: The Federal rules restrict any use of the information to criminally investigate or prosecute any alcohol or drug abuse patient.[facility] CenterIn the event this information is protected by the Federal Confidentiality of Alcohol and Drug Abuse Patient Records regulations: The Federal rules restrict any use of the information to criminally investigate or prosecute any alcohol or drug abuse patient.[facility] CenterIn the event this information is protected by the Federal Confidentiality of Alcohol and Drug Abuse Patient Records regulations: The Federal rules restrict any use of the information to criminally investigate or prosecute any alcohol or drug abuse patient.[facility] CenterIn the event this information is protected by the Federal Confidentiality of Alcohol and Drug Abuse Patient Records regulations: The Federal rules restrict any use of the information to criminally investigate or prosecute any alcohol or drug abuse patient.[facility] CenterIn the event this information is protected by the Federal Confidentiality of Alcohol and Drug Abuse Patient Records regulations: The Federal rules restrict any use of the information to criminally investigate or prosecute any alcohol or drug abuse patient.[facility] CenterIn the event this information is protected by the Federal Confidentiality of Alcohol and Drug Abuse Patient Records regulations: The Federal rules restrict any use of the information to criminally investigate or prosecute any alcohol or drug abuse patient.[facility] CenterIn the event this information is protected by the Federal Confidentiality of Alcohol and Drug Abuse Patient Records regulations: The Federal rules restrict any use of the information to criminally investigate or prosecute any alcohol or drug abuse patient.[facility] CenterIn the event this information is protected by the Federal Confidentiality of Alcohol and Drug Abuse Patient Records regulations: The Federal rules restrict any use of the information to criminally investigate or prosecute any alcohol or drug abuse patient.[facility] CenterIn the event this information is protected by the Federal Confidentiality of Alcohol and Drug Abuse Patient Records regulations: The Federal rules restrict any use of the information to criminally investigate or prosecute any alcohol or drug abuse patient.[facility] CenterIn the event this information is protected by the Federal Confidentiality of Alcohol and Drug Abuse Patient Records regulations: The Federal rules restrict any use of the information to criminally investigate or prosecute any alcohol or drug abuse patient.[facility] CenterIn the event this information is protected by the Federal Confidentiality of Alcohol and Drug Abuse Patient Records regulations: The Federal rules restrict any use of the information to criminally investigate or prosecute any alcohol or drug abuse patient.[facility] CenterIn the event this information is protected by the Federal Confidentiality of Alcohol and Drug Abuse Patient Records regulations: The Federal rules restrict any use of the information to criminally investigate or prosecute any alcohol or drug abuse patient.[facility] CenterIn the event this information is protected by the Federal Confidentiality of Alcohol and Drug Abuse Patient Records regulations: The Federal rules restrict any use of the information to criminally investigate or prosecute any alcohol or drug abuse patient.[facility] CenterIn the event this information is protected by the Federal Confidentiality of Alcohol and Drug Abuse Patient Records regulations: The Federal rules restrict any use of the information to criminally investigate or prosecute any alcohol or drug abuse patient.[facility] CenterIn the event this information is protected by the Federal Confidentiality of Alcohol and Drug Abuse Patient Records regulations: The Federal rules restrict any use of the information to criminally investigate or prosecute any alcohol or drug abuse patient.[facility] CenterIn the event this information is protected by the Federal Confidentiality of Alcohol and Drug Abuse Patient Records regulations: The Federal rules restrict any use of the information to criminally investigate or prosecute any alcohol or drug abuse patient.[facility] CenterIn the event this information is protected by the Federal Confidentiality of Alcohol and Drug Abuse Patient Records regulations: The Federal rules restrict any use of the information to criminally investigate or prosecute any alcohol or drug abuse patient.[facility] CenterIn the event this information is protected by the Federal Confidentiality of Alcohol and Drug Abuse Patient Records regulations: The Federal rules restrict any use of the information to criminally investigate or prosecute any alcohol or drug abuse patient.[facility] the event this information is protected by the Federal Confidentiality of Alcohol and Drug Abuse Patient Records regulations: The Federal rules restrict any use of the information to criminally investigate or prosecute any alcohol or drug abuse patient.[facility] CenterIn the event this information is protected by the Federal Confidentiality of Alcohol and Drug Abuse Patient Records regulations: The Federal rules restrict any use of the information to criminally investigate or prosecute any alcohol or drug abuse patient.[facility] CenterIn the event this information is protected by the Federal Confidentiality of Alcohol and Drug Abuse Patient Records regulations: The Federal rules restrict any use of the information to criminally investigate or prosecute any alcohol or drug abuse patient.[facility] CenterIn the event this information is protected by the Federal Confidentiality of Alcohol and Drug Abuse Patient Records regulations: The Federal rules restrict any use of the information to criminally investigate or prosecute any alcohol or drug abuse patient.[facility] CenterIn the event this information is protected by the Federal Confidentiality of Alcohol and Drug Abuse Patient Records regulations: The Federal rules restrict any use of the information to criminally investigate or prosecute any alcohol or drug abuse patient.[facility] CenterIn the event this information is protected by the Federal Confidentiality of Alcohol and Drug Abuse Patient Records regulations: The Federal rules restrict any use of the information to criminally investigate or prosecute any alcohol or drug abuse patient.[facility] CenterIn the event this information is protected by the Federal Confidentiality of Alcohol and Drug Abuse Patient Records regulations: The Federal rules restrict any use of the information to criminally investigate or prosecute any alcohol or drug abuse patient.[facility] CenterIn the event this information is protected by the Federal Confidentiality of Alcohol and Drug Abuse Patient Records regulations: The Federal rules restrict any use of the information to criminally investigate or prosecute any alcohol or drug abuse patient.[facility] CenterIn the event this information is protected by the Federal Confidentiality of Alcohol and Drug Abuse Patient Records regulations: The Federal rules restrict any use of the information to criminally investigate or prosecute any alcohol or drug abuse patient.[facility] CenterIn the event this information is protected by the Federal Confidentiality of Alcohol and Drug Abuse Patient Records regulations: The Federal rules restrict any use of the information to criminally investigate or prosecute any alcohol or drug abuse patient.[facility] CenterIn the event this information is protected by the Federal Confidentiality of Alcohol and Drug Abuse Patient Records regulations: The Federal rules restrict any use of the information to criminally investigate or prosecute any alcohol or drug abuse patient.[facility]In the event this information is protected by the Federal Confidentiality of Alcohol and Drug Abuse Patient Records regulations: The Federal rules restrict any use of the information to criminally investigate or prosecute any alcohol or drug abuse patient.[facility]In the event this information is protected by the Federal Confidentiality of Alcohol and Drug Abuse Patient Records regulations: The Federal rules restrict any use of the information to criminally investigate or prosecute any alcohol or drug abuse patient.[facility]In the event this information is protected by the Federal Confidentiality of Alcohol and Drug Abuse Patient Records regulations: The Federal rules restrict any use of the information to criminally investigate or prosecute any alcohol or drug abuse patient.[facility]In the event this information is protected by the Federal Confidentiality of Alcohol and Drug Abuse Patient Records regulations: The Federal rules restrict any use of the information to criminally investigate or prosecute any alcohol or drug abuse patient.[facility] CenterIn the event this information is protected by the Federal Confidentiality of Alcohol and Drug Abuse Patient Records regulations: The Federal rules restrict any use of the information to criminally investigate or prosecute any alcohol or drug abuse patient.[facility] CenterIn the event this information is protected by the Federal Confidentiality of Alcohol and Drug Abuse Patient Records regulations: The Federal rules restrict any use of the information to criminally investigate or prosecute any alcohol or drug abuse patient.[facility] CenterIn the event this information is protected by the Federal Confidentiality of Alcohol and Drug Abuse Patient Records regulations: The Federal rules restrict any use of the information to criminally investigate or prosecute any alcohol or drug abuse patient.[facility] CenterIn the event this information is protected by the Federal Confidentiality of Alcohol and Drug Abuse Patient Records regulations: The Federal rules restrict any use of the information to criminally investigate or prosecute any alcohol or drug abuse patient.[facility]In the event this information is protected by the Federal Confidentiality of Alcohol and Drug Abuse Patient Records regulations: The Federal rules restrict any use of the information to criminally investigate or prosecute any alcohol or drug abuse patient.[facility] CenterIn the event this information is protected by the Federal Confidentiality of Alcohol and Drug Abuse Patient Records regulations: The Federal rules restrict any use of the information to criminally investigate or prosecute any alcohol or drug abuse patient.[facility] CenterIn the event this information is protected by the Federal Confidentiality of Alcohol and Drug Abuse Patient Records regulations: The Federal rules restrict any use of the information to criminally investigate or prosecute any alcohol or drug abuse patient.[facility] CenterIn the event this information is protected by the Federal Confidentiality of Alcohol and Drug Abuse Patient Records regulations: The Federal rules restrict any use of the information to criminally investigate or prosecute any alcohol or drug abuse patient.[facility] CenterIn the event this information is protected by the Federal Confidentiality of Alcohol and Drug Abuse Patient Records regulations: The Federal rules restrict any use of the information to criminally investigate or prosecute any alcohol or drug abuse patient.[facility] CenterIn the event this information is protected by the Federal Confidentiality of Alcohol and Drug Abuse Patient Records regulations: The Federal rules restrict any use of the information to criminally investigate or prosecute any alcohol or drug abuse patient.[facility] CenterIn the event this information is protected by the Federal Confidentiality of Alcohol and Drug Abuse Patient Records regulations: The Federal rules restrict any use of the information to criminally investigate or prosecute any alcohol or drug abuse patient.[facility] CenterIn the event this information is protected by the Federal Confidentiality of Alcohol and Drug Abuse Patient Records regulations: The Federal rules restrict any use of the information to criminally investigate or prosecute any alcohol or drug abuse patient.[facility] CenterIn the event this information is protected by the Federal Confidentiality of Alcohol and Drug Abuse Patient Records regulations: The Federal rules restrict any use of the information to criminally investigate or prosecute any alcohol or drug abuse patient.[facility] CenterIn the event this information is protected by the Federal Confidentiality of Alcohol and Drug Abuse Patient Records regulations: The Federal rules restrict any use of the information to criminally investigate or prosecute any alcohol or drug abuse patient.[facility] CenterIn the event this information is protected by the Federal Confidentiality of Alcohol and Drug Abuse Patient Records regulations: The Federal rules restrict any use of the information to criminally investigate or prosecute any alcohol or drug abuse patient.[facility] CenterIn the event this information is protected by the Federal Confidentiality of Alcohol and Drug Abuse Patient Records regulations: The Federal rules restrict any use of the information to criminally investigate or prosecute any alcohol or drug abuse patient.[facility] CenterIn the event this information is protected by the Federal Confidentiality of Alcohol and Drug Abuse Patient Records regulations: The Federal rules restrict any use of the information to criminally investigate or prosecute any alcohol or drug abuse patient.[facility] CenterIn the event this information is protected by the Federal Confidentiality of Alcohol and Drug Abuse Patient Records regulations: The Federal rules restrict any use of the information to criminally investigate or prosecute any alcohol or drug abuse patient.[facility] CenterIn the event this information is protected by the Federal Confidentiality of Alcohol and Drug Abuse Patient Records regulations: The Federal rules restrict any use of the information to criminally investigate or prosecute any alcohol or drug abuse patient.[facility] CenterIn the event this information is protected by the Federal Confidentiality of Alcohol and Drug Abuse Patient Records regulations: The Federal rules restrict any use of the information to criminally investigate or prosecute any alcohol or drug abuse patient.[facility] CenterIn the event this information is protected by the Federal Confidentiality of Alcohol and Drug Abuse Patient Records regulations: The Federal rules restrict any use of the information to criminally investigate or prosecute any alcohol or drug abuse patient.[facility] CenterIn the event this information is protected by the Federal Confidentiality of Alcohol and Drug Abuse Patient Records regulations: The Federal rules restrict any use of the information to criminally investigate or prosecute any alcohol or drug abuse patient.[facility] CenterIn the event this information is protected by the Federal Confidentiality of Alcohol and Drug Abuse Patient Records regulations: The Federal rules restrict any use of the information to criminally investigate or prosecute any alcohol or drug abuse patient.[facility] CenterIn the event this information is protected by the Federal Confidentiality of Alcohol and Drug Abuse Patient Records regulations: The Federal rules restrict any use of the information to criminally investigate or prosecute any alcohol or drug abuse patient.[facility] CenterIn the event this information is protected by the Federal Confidentiality of Alcohol and Drug Abuse Patient Records regulations: The Federal rules restrict any use of the information to criminally investigate or prosecute any alcohol or drug abuse patient.[facility] CenterIn the event this information is protected by the Federal Confidentiality of Alcohol and Drug Abuse Patient Records regulations: The Federal rules restrict any use of the information to criminally investigate or prosecute any alcohol or drug abuse patient.[facility] CenterIn the event this information is protected by the Federal Confidentiality of Alcohol and Drug Abuse Patient Records regulations: The Federal rules restrict any use of the information to criminally investigate or prosecute any alcohol or drug abuse patient.[facility] CenterIn the event this information is protected by the Federal Confidentiality of Alcohol and Drug Abuse Patient Records regulations: The Federal rules restrict any use of the information to criminally investigate or prosecute any alcohol or drug abuse patient.[facility] CenterIn the event this information is protected by the Federal Confidentiality of Alcohol and Drug Abuse Patient Records regulations: The Federal rules restrict any use of the information to criminally investigate or prosecute any alcohol or drug abuse patient.[facility] CenterIn the event this information is protected by the Federal Confidentiality of Alcohol and Drug Abuse Patient Records regulations: The Federal rules restrict any use of the information to criminally investigate or prosecute any alcohol or drug abuse patient.[facility] CenterIn the event this information is protected by the Federal Confidentiality of Alcohol and Drug Abuse Patient Records regulations: The Federal rules restrict any use of the information to criminally investigate or prosecute any alcohol or drug abuse patient.[facility] CenterIn the event this information is protected by the Federal Confidentiality of Alcohol and Drug Abuse Patient Records regulations: The Federal rules restrict any use of the information to criminally investigate or prosecute any alcohol or drug abuse patient.[facility] CenterIn the event this information is protected by the Federal Confidentiality of Alcohol and Drug Abuse Patient Records regulations: The Federal rules restrict any use of the information to criminally investigate or prosecute any alcohol or drug abuse patient.[facility] CenterIn the event this information is protected by the Federal Confidentiality of Alcohol and Drug Abuse Patient Records regulations: The Federal rules restrict any use of the information to criminally investigate or prosecute any alcohol or drug abuse patient.[facility] CenterIn the event this information is protected by the Federal Confidentiality of Alcohol and Drug Abuse Patient Records regulations: The Federal rules restrict any use of the information to criminally investigate or prosecute any alcohol or drug abuse patient.[facility] the event this information is protected by the Federal Confidentiality of Alcohol and Drug Abuse Patient Records regulations: The Federal rules restrict any use of the information to criminally investigate or prosecute any alcohol or drug abuse patient.[facility] CenterIn the event this information is protected by the Federal Confidentiality of Alcohol and Drug Abuse Patient Records regulations: The Federal rules restrict any use of the information to criminally investigate or prosecute any alcohol or drug abuse patient.[facility] CenterIn the event this information is protected by the Federal Confidentiality of Alcohol and Drug Abuse Patient Records regulations: The Federal rules restrict any use of the information to criminally investigate or prosecute any alcohol or drug abuse patient.[facility] CenterIn the event this information is protected by the Federal Confidentiality of Alcohol and Drug Abuse Patient Records regulations: The Federal rules restrict any use of the information to criminally investigate or prosecute any alcohol or drug abuse patient.[facility] CenterIn the event this information is protected by the Federal Confidentiality of Alcohol and Drug Abuse Patient Records regulations: The Federal rules restrict any use of the information to criminally investigate or prosecute any alcohol or drug abuse patient.[facility] CenterIn the event this information is protected by the Federal Confidentiality of Alcohol and Drug Abuse Patient Records regulations: The Federal rules restrict any use of the information to criminally investigate or prosecute any alcohol or drug abuse patient.[facility] CenterIn the event this information is protected by the Federal Confidentiality of Alcohol and Drug Abuse Patient Records regulations: The Federal rules restrict any use of the information to criminally investigate or prosecute any alcohol or drug abuse patient.[facility] CenterIn the event this information is protected by the Federal Confidentiality of Alcohol and Drug Abuse Patient Records regulations: The Federal rules restrict any use of the information to criminally investigate or prosecute any alcohol or drug abuse patient.[facility] CenterIn the event this information is protected by the Federal Confidentiality of Alcohol and Drug Abuse Patient Records regulations: The Federal rules restrict any use of the information to criminally investigate or prosecute any alcohol or drug abuse patient.[facility] CenterIn the event this information is protected by the Federal Confidentiality of Alcohol and Drug Abuse Patient Records regulations: The Federal rules restrict any use of the information to criminally investigate or prosecute any alcohol or drug abuse patient.[facility] CenterIn the event this information is protected by the Federal Confidentiality of Alcohol and Drug Abuse Patient Records regulations: The Federal rules restrict any use of the information to criminally investigate or prosecute any alcohol or drug abuse patient.[facility] CenterIn the event this information is protected by the Federal Confidentiality of Alcohol and Drug Abuse Patient Records regulations: The Federal rules restrict any use of the information to criminally investigate or prosecute any alcohol or drug abuse patient.[facility] CenterIn the event this information is protected by the Federal Confidentiality of Alcohol and Drug Abuse Patient Records regulations: The Federal rules restrict any use of the information to criminally investigate or prosecute any alcohol or drug abuse patient.[facility] CenterIn the event this information is protected by the Federal Confidentiality of Alcohol and Drug Abuse Patient Records regulations: The Federal rules restrict any use of the information to criminally investigate or prosecute any alcohol or drug abuse patient.[facility] CenterIn the event this information is protected by the Federal Confidentiality of Alcohol and Drug Abuse Patient Records regulations: The Federal rules restrict any use of the information to criminally investigate or prosecute any alcohol or drug abuse patient.[facility] CenterIn the event this information is protected by the Federal Confidentiality of Alcohol and Drug Abuse Patient Records regulations: The Federal rules restrict any use of the information to criminally investigate or prosecute any alcohol or drug abuse patient.[facility] CenterIn the event this information is protected by the Federal Confidentiality of Alcohol and Drug Abuse Patient Records regulations: The Federal rules restrict any use of the information to criminally investigate or prosecute any alcohol or drug abuse patient.[facility] CenterIn the event this information is protected by the Federal Confidentiality of Alcohol and Drug Abuse Patient Records regulations: The Federal rules restrict any use of the information to criminally investigate or prosecute any alcohol or drug abuse patient.[facility] CenterIn the event this information is protected by the Federal Confidentiality of Alcohol and Drug Abuse Patient Records regulations: The Federal rules restrict any use of the information to criminally investigate or prosecute any alcohol or drug abuse patient.[facility] CenterIn the event this information is protected by the Federal Confidentiality of Alcohol and Drug Abuse Patient Records regulations: The Federal rules restrict any use of the information to criminally investigate or prosecute any alcohol or drug abuse patient.[facility] CenterIn the event this information is protected by the Federal Confidentiality of Alcohol and Drug Abuse Patient Records regulations: The Federal rules restrict any use of the information to criminally investigate or prosecute any alcohol or drug abuse patient.[facility] CenterIn the event this information is protected by the Federal Confidentiality of Alcohol and Drug Abuse Patient Records regulations: The Federal rules restrict any use of the information to criminally investigate or prosecute any alcohol or drug abuse patient.[facility] CenterIn the event this information is protected by the Federal Confidentiality of Alcohol and Drug Abuse Patient Records regulations: The Federal rules restrict any use of the information to criminally investigate or prosecute any alcohol or drug abuse patient.[facility] CenterIn the event this information is protected by the Federal Confidentiality of Alcohol and Drug Abuse Patient Records regulations: The Federal rules restrict any use of the information to criminally investigate or prosecute any alcohol or drug abuse patient.[facility] CenterIn the event this information is protected by the Federal Confidentiality of Alcohol and Drug Abuse Patient Records regulations: The Federal rules restrict any use of the information to criminally investigate or prosecute any alcohol or drug abuse patient.[facility] CenterIn the event this information is protected by the Federal Confidentiality of Alcohol and Drug Abuse Patient Records regulations: The Federal rules restrict any use of the information to criminally investigate or prosecute any alcohol or drug abuse patient.[facility] CenterIn the event this information is protected by the Federal Confidentiality of Alcohol and Drug Abuse Patient Records regulations: The Federal rules restrict any use of the information to criminally investigate or prosecute any alcohol or drug abuse patient.[facility] CenterIn the event this information is protected by the Federal Confidentiality of Alcohol and Drug Abuse Patient Records regulations: The Federal rules restrict any use of the information to criminally investigate or prosecute any alcohol or drug abuse patient.[facility] CenterIn the event this information is protected by the Federal Confidentiality of Alcohol and Drug Abuse Patient Records regulations: The Federal rules restrict any use of the information to criminally investigate or prosecute any alcohol or drug abuse patient.[facility] CenterIn the event this information is protected by the Federal Confidentiality of Alcohol and Drug Abuse Patient Records regulations: The Federal rules restrict any use of the information to criminally investigate or prosecute any alcohol or drug abuse patient.[facility] CenterIn the event this information is protected by the Federal Confidentiality of Alcohol and Drug Abuse Patient Records regulations: The Federal rules restrict any use of the information to criminally investigate or prosecute any alcohol or drug abuse patient.[facility] CenterIn the event this information is protected by the Federal Confidentiality of Alcohol and Drug Abuse Patient Records regulations: The Federal rules restrict any use of the information to criminally investigate or prosecute any alcohol or drug abuse patient.[facility] CenterIn the event this information is protected by the Federal Confidentiality of Alcohol and Drug Abuse Patient Records regulations: The Federal rules restrict any use of the information to criminally investigate or prosecute any alcohol or drug abuse patient.[facility] CenterIn the event this information is protected by the Federal Confidentiality of Alcohol and Drug Abuse Patient Records regulations: The Federal rules restrict any use of the information to criminally investigate or prosecute any alcohol or drug abuse patient.[facility] CenterIn the event this information is protected by the Federal Confidentiality of Alcohol and Drug Abuse Patient Records regulations: The Federal rules restrict any use of the information to criminally investigate or prosecute any alcohol or drug abuse patient.[facility] CenterIn the event this information is protected by the Federal Confidentiality of Alcohol and Drug Abuse Patient Records regulations: The Federal rules restrict any use of the information to criminally investigate or prosecute any alcohol or drug abuse patient.[facility] CenterIn the event this information is protected by the Federal Confidentiality of Alcohol and Drug Abuse Patient Records regulations: The Federal rules restrict any use of the information to criminally investigate or prosecute any alcohol or drug abuse patient.[facility] CenterIn the event this information is protected by the Federal Confidentiality of Alcohol and Drug Abuse Patient Records regulations: The Federal rules restrict any use of the information to criminally investigate or prosecute any alcohol or drug abuse patient.[facility] CenterIn the event this information is protected by the Federal Confidentiality of Alcohol and Drug Abuse Patient Records regulations: The Federal rules restrict any use of the information to criminally investigate or prosecute any alcohol or drug abuse patient.[facility] CenterIn the event this information is protected by the Federal Confidentiality of Alcohol and Drug Abuse Patient Records regulations: The Federal rules restrict any use of the information to criminally investigate or prosecute any alcohol or drug abuse patient.[facility] CenterIn the event this information is protected by the Federal Confidentiality of Alcohol and Drug Abuse Patient Records regulations: The Federal rules restrict any use of the information to criminally investigate or prosecute any alcohol or drug abuse patient.[facility] CenterIn the event this information is protected by the Federal Confidentiality of Alcohol and Drug Abuse Patient Records regulations: The Federal rules restrict any use of the information to criminally investigate or prosecute any alcohol or drug abuse patient.[facility]In the event this information is protected by the Federal Confidentiality of Alcohol and Drug Abuse Patient Records regulations: The Federal rules restrict any use of the information to criminally investigate or prosecute any alcohol or drug abuse patient.[facility] CenterIn the event this information is protected by the Federal Confidentiality of Alcohol and Drug Abuse Patient Records regulations: The Federal rules restrict any use of the information to criminally investigate or prosecute any alcohol or drug abuse patient.[facility] CenterIn the event this information is protected by the Federal Confidentiality of Alcohol and Drug Abuse Patient Records regulations: The Federal rules restrict any use of the information to criminally investigate or prosecute any alcohol or drug abuse patient.[facility] CenterIn the event this information is protected by the Federal Confidentiality of Alcohol and Drug Abuse Patient Records regulations: The Federal rules restrict any use of the information to criminally investigate or prosecute any alcohol or drug abuse patient.[facility] CenterIn the event this information is protected by the Federal Confidentiality of Alcohol and Drug Abuse Patient Records regulations: The Federal rules restrict any use of the information to criminally investigate or prosecute any alcohol or drug abuse patient.[facility] CenterIn the event this information is protected by the Federal Confidentiality of Alcohol and Drug Abuse Patient Records regulations: The Federal rules restrict any use of the information to criminally investigate or prosecute any alcohol or drug abuse patient.[facility] CenterIn the event this information is protected by the Federal Confidentiality of Alcohol and Drug Abuse Patient Records regulations: The Federal rules restrict any use of the information to criminally investigate or prosecute any alcohol or drug abuse patient.[facility] CenterIn the event this information is protected by the Federal Confidentiality of Alcohol and Drug Abuse Patient Records regulations: The Federal rules restrict any use of the information to criminally investigate or prosecute any alcohol or drug abuse patient.[facility] the event this information is protected by the Federal Confidentiality of Alcohol and Drug Abuse Patient Records regulations: The Federal rules restrict any use of the information to criminally investigate or prosecute any alcohol or drug abuse patient.[facility] CenterIn the event this information is protected by the Federal Confidentiality of Alcohol and Drug Abuse Patient Records regulations: The Federal rules restrict any use of the information to criminally investigate or prosecute any alcohol or drug abuse patient.[facility] CenterIn the event this information is protected by the Federal Confidentiality of Alcohol and Drug Abuse Patient Records regulations: The Federal rules restrict any use of the information to criminally investigate or prosecute any alcohol or drug abuse patient.[facility] CenterIn the event this information is protected by the Federal Confidentiality of Alcohol and Drug Abuse Patient Records regulations: The Federal rules restrict any use of the information to criminally investigate or prosecute any alcohol or drug abuse patient.[facility] CenterIn the event this information is protected by the Federal Confidentiality of Alcohol and Drug Abuse Patient Records regulations: The Federal rules restrict any use of the information to criminally investigate or prosecute any alcohol or drug abuse patient.[facility] CenterIn the event this information is protected by the Federal Confidentiality of Alcohol and Drug Abuse Patient Records regulations: The Federal rules restrict any use of the information to criminally investigate or prosecute any alcohol or drug abuse patient.[facility] CenterIn the event this information is protected by the Federal Confidentiality of Alcohol and Drug Abuse Patient Records regulations: The Federal rules restrict any use of the information to criminally investigate or prosecute any alcohol or drug abuse patient.[facility] CenterIn the event this information is protected by the Federal Confidentiality of Alcohol and Drug Abuse Patient Records regulations: The Federal rules restrict any use of the information to criminally investigate or prosecute any alcohol or drug abuse patient.[facility] CenterIn the event this information is protected by the Federal Confidentiality of Alcohol and Drug Abuse Patient Records regulations: The Federal rules restrict any use of the information to criminally investigate or prosecute any alcohol or drug abuse patient.[facility] CenterIn the event this information is protected by the Federal Confidentiality of Alcohol and Drug Abuse Patient Records regulations: The Federal rules restrict any use of the information to criminally investigate or prosecute any alcohol or drug abuse patient.[facility] CenterIn the event this information is protected by the Federal Confidentiality of Alcohol and Drug Abuse Patient Records regulations: The Federal rules restrict any use of the information to criminally investigate or prosecute any alcohol or drug abuse patient.[facility] CenterIn the event this information is protected by the Federal Confidentiality of Alcohol and Drug Abuse Patient Records regulations: The Federal rules restrict any use of the information to criminally investigate or prosecute any alcohol or drug abuse patient.[facility] CenterIn the event this information is protected by the Federal Confidentiality of Alcohol and Drug Abuse Patient Records regulations: The Federal rules restrict any use of the information to criminally investigate or prosecute any alcohol or drug abuse patient.[facility] CenterIn the event this information is protected by the Federal Confidentiality of Alcohol and Drug Abuse Patient Records regulations: The Federal rules restrict any use of the information to criminally investigate or prosecute any alcohol or drug abuse patient.[facility] CenterIn the event this information is protected by the Federal Confidentiality of Alcohol and Drug Abuse Patient Records regulations: The Federal rules restrict any use of the information to criminally investigate or prosecute any alcohol or drug abuse patient.[facility] CenterIn the event this information is protected by the Federal Confidentiality of Alcohol and Drug Abuse Patient Records regulations: The Federal rules restrict any use of the information to criminally investigate or prosecute any alcohol or drug abuse patient.[facility] CenterIn the event this information is protected by the Federal Confidentiality of Alcohol and Drug Abuse Patient Records regulations: The Federal rules restrict any use of the information to criminally investigate or prosecute any alcohol or drug abuse patient.[facility] CenterIn the event this information is protected by the Federal Confidentiality of Alcohol and Drug Abuse Patient Records regulations: The Federal rules restrict any use of the information to criminally investigate or prosecute any alcohol or drug abuse patient.[facility] CenterIn the event this information is protected by the Federal Confidentiality of Alcohol and Drug Abuse Patient Records regulations: The Federal rules restrict any use of the information to criminally investigate or prosecute any alcohol or drug abuse patient.[facility] CenterIn the event this information is protected by the Federal Confidentiality of Alcohol and Drug Abuse Patient Records regulations: The Federal rules restrict any use of the information to criminally investigate or prosecute any alcohol or drug abuse patient.[facility] CenterIn the event this information is protected by the Federal Confidentiality of Alcohol and Drug Abuse Patient Records regulations: The Federal rules restrict any use of the information to criminally investigate or prosecute any alcohol or drug abuse patient.[facility] CenterIn the event this information is protected by the Federal Confidentiality of Alcohol and Drug Abuse Patient Records regulations: The Federal rules restrict any use of the information to criminally investigate or prosecute any alcohol or drug abuse patient.[facility] CenterIn the event this information is protected by the Federal Confidentiality of Alcohol and Drug Abuse Patient Records regulations: The Federal rules restrict any use of the information to criminally investigate or prosecute any alcohol or drug abuse patient.[facility] CenterIn the event this information is protected by the Federal Confidentiality of Alcohol and Drug Abuse Patient Records regulations: The Federal rules restrict any use of the information to criminally investigate or prosecute any alcohol or drug abuse patient.[facility] Reason for Visit (unrecogniz ed section and content) Reason Comments Radiology CT Specialty Diagnoses / Procedures Referred By Rosanne engle Referred To Contact CT IMAGING Diagnoses Malignant neoplasm of rectum (HCC) Procedures CT CHEST W IVCON DIAGNOSTIC COMPUTED TOMOGRAPHY THORAX W/CONTRAST Minerva Anderson MD [address] [place] [address] [place] [id number] [place] [id number] Referral ID Status Reason Start Date Expiration Date V isits Requested Visits Authorized [id number] Closed Auto-Generate d Referral 11/21/2023 12/20/2024 1 [...] Diagnoses Rectal cancer (HCC) Minerva Anderson MD [address] [place] [address] Juan Carlos Treat Arya [address] [place] [address] Referral ID Status Reason Start Date Expiration Date V isits Requested Visits Authorized [id number] Authorized 12/17/2022 03/17/2023 99 99 Reason Comments Care Coordination C1D1 treatment follo w up call Specialty Diagnoses / Procedures Referred By Contac t Referred To Contact Hematology / HEMATOLOGY/ONCOLOGY Diagnoses lab port chemotx FOLFOX *NEW START CHANGE IN TREATMENT* Procedures LAB/PORT Minerva Anderson MD [address] [place] [address] [place] [id number] [address]jar[address] [place] [address] Referral ID Status Reason Start Date Expiration Date V isits Requested Visits Authorized [id number] Authorized 12/25/2022 10/20/2023 99 99 Reason Comments Rectal Cancer OTV 2 weeks Reason Comments [employer] - Other Rectal Bleeding Reason Comments Care Coordination US Order Reason Onset Date Comments Refill Request 01/23/2023 Reason Comments Care Coordination DVT; Eliquis Reason Comments New Patient Evaluation Rectal Bleeding Specialty Diagnoses / Procedures Referred By Contac t Referred To Contact Gastroenterology Diagnoses Rectal cancer (HCC) Rectal bleeding Procedures CONSULT TO GASTROENTEROLOGY OFFICE/OUTPATIENT NEW HIGH MDM 60-74 MINUTES Andree Hollis APRN.[facility] [address] [place] [address] Referral ID Status Reason Start Date Expiration Date V isits Requested Visits Authorized [id number] Closed PCP Requested Referral 01/23/2023 01/23/2024 1 1 Reason Comments New Patient Consult for rectal c ancer Reason Comments Rectal Cancer Treatment visit/port draw Reason Comments Medication Assistance Approved for Free Xarelto Reason Comments Patient Question Reason Comments Care Coordination MRI Question Reason Comments Orders Flex sig, CEA, MRI, CT Reason Comments [employer] - Other Reason Comments Care Coordination Potassium Results Reason Comments Appointment Pt calling to let Ra sousa know that 07/09, Saturday would be his best option for colonoscopy. 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 Results; Ne uropathy Reason Comments Port Flush Specialty Diagnoses / Procedures Referred By Contac t Referred To Contact Hematology / HEMATOLOGY/ONCOLOGY Diagnoses lab port chemotx FOLFOX *NEW START CHANGE IN TREATMENT* Procedures LAB/PORT Minerva Anderson MD [address] [place] [address] Juan Carlos Arya [address] [place] [address] Specialty Diagnoses / Procedures Referred By Contac t Referred To Contact MR IMAGING Diagnoses Malignant neoplasm of rectum (HCC) Procedures MRI RECTUM WO/W IVCON MRI PELVIS W/O & W/[place] [address] [address] [place] [id number] Mr Imaging [facility] Referral ID Status Reason Start Date Expiration Date V isits Requested Visits Authorized [id number] Closed Auto-Generate d Referral 05/03/2023 06/01/2024 1 1 Reason Comments Rectal Cancer Referral ID Status Reason Start Date Expiration Date V isits Requested Visits Authorized [id number] Closed Auto-Generate d Referral 03/12/2024 04/11/2025 1 1 Specialty Diagnoses / Procedures Referred By Contac t Referred To Contact MR IMAGING Diagnoses Malignant neoplasm of rectum (HCC) Procedures MRI RECTUM WO/W IVCON MRI PELVIS W/O & W/CONTRAST MATERIAL Minerva Anderson MD [address] [place] [address] [place] [address] Referral ID Status Reason Start Date Expiration Date V isits Requested Visits Authorized [id number] Closed Auto-Generate d Referral 03/12/2024 04/11/2025 1 1 Specialty Diagnoses / Procedures Referred By Contac t Referred To Contact CT IMAGING Diagnoses Malignant neoplasm of rectum (HCC) Procedures CT ABDOMEN W IVCON CT ABDOMEN W/[place] [address] [place] [address] [place] [id number] Referral ID Status Reason Start Date Expiration Date V isits Requested Visits Authorized [id number] Closed Auto-Generate d Referral 05/03/2023 06/01/2024 1 1 Specialty Diagnoses / Procedures Referred By Contac t Referred To Contact CT IMAGING Diagnoses Lung nodules Rectal cancer (HCC) Procedures CT ABD/PEL W IVCON CT ABD & PELVIS W/CONTRAST Minerva Anderson MD [address] [place] [address] [place] [address] [place] [id number] Referral ID Status Reason Start Date Expiration Date V isits Requested Visits Authorized [id number] Closed Auto-Generate d Referral 11/19/2022 12/19/2023 1 1 Reason Comments Radiology NM Specialty Diagnoses / Procedures Referred By Contac t Referred To Contact MOLECULAR & FUNCTIONAL IMAGING Diagnoses Rectal cancer (HCC) Procedures NM PET/CT SKULL-THIGH INITIAL PET IMAGING CT ATTENUATION SKULL BASE MID-THIGH Minerva Anderson MD [address] [place] [address] [place] [id number] Molecular & Functional Imaging [address] [place] [address] Referral ID Status Reason Start Date Expiration Date V isits Requested Visits Authorized [id number] Closed Auto-Generate d Referral 09/17/2022 10/17/2023 1 1 Specialty Diagnoses / Procedures Referred By Contac t Referred To Contact RADIATION ONCOLOGY Diagnoses Rectal adenocarcinoma (HCC) Procedures CT SIM PLANNING RADIATION ONCOLOGY THER RAD SIMULAJ-AIDED FIELD SETTING COMPLEX IMRT Dania Key MD [address] [place] [address] [place] [id number] [address] [place] [address] [place] [address] Referral ID Status Reason Start Date Expiration Date V isits Requested Visits Authorized [id number] Closed PCP Requested Referral 09/24/2022 10/20/2022 99 [...] CT ABD & PELVIS W/CONTRAST Celeste Andrews, 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.[employer] [address] [address], [facility] [address] [place] [address] [place] [id number] Referral ID Status Reason Start Date Expiration Date V isits Requested Visits Authorized [id number] Closed Auto-Generate d Referral 08/13/2024 09/12/2025 1 1 Specialty Diagnoses / Procedures Referred By Contac t Referred To Contact CT IMAGING Diagnoses Malignant neoplasm of rectum (HCC) Procedures CT ABD/PEL W IVCON CT ABD & PELVIS W/CONTRAST Minerva Anderson MD [address] [place] [address] [place] [address] [place] [id number] Referral ID Status Reason Start Date Expiration Date V isits Requested Visits Authorized [id number] Closed Auto-Generate d Referral 03/12/2024 04/11/2025 1 1 Reason Comments Care Coordination Appointment Reason Comments Post Op Drain Removal Specialty Diagnoses / Procedures Referred By Contac t Referred To Contact Sleep Center Diagnoses Sleep apnea, unspecified type Procedures Home Sleep Study Valerie Roberts, 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 - [employer] [address] [facility] [address] [place] [address] Ami Krishnamurthy MD [address] [place] [address] Referral ID Status Reason Start Date Expiration Date Visits Re quested Visits Authorized [id number] Open 08/20/2024 08/20/2025 1 1 Reason Comments Pain Reason Comments Suspicious Skin Lesion Specialty Diagnoses / Procedures Referred By Contac t Referred To Contact Dermatology Diagnoses Actinic keratosis Procedures DE OFFICE/OUTPATIENT NEW HIGH MDM 60 MINUTES Chelsie Fernando PA [address] [facility] [address] [place] [address] Magui Vegas MD [address] [place] [address] Referral ID Status Reason Start Date Expiration Date V isits Requested Visits Authorized [id number] Closed Specialty Services Required 05/27/2024 11/23/2024 1 1 Reason Comments Care Coordination Abdominal Pain and S welling Specialty Diagnoses / Procedures Referred By Contac t Referred To Contact CT IMAGING Diagnoses Intra-abdominal and pelvic swelling, mass and lump, unspecified site Procedures CT ABDOMEN W IVCON CT ABDOMEN W/CONTRAST Kari Diaz PA-C [address] [place] [address] [place] [id number] Referral ID Status Reason Start Date Expiration Date Visits Requested Visits Authorized [id number] New Request Auto-Generat ed Referral 11/10/2024 12/10/2025 1 1 Specialty Diagnoses / Procedures Referred By Contac t Referred To Contact Radiology Diagnoses Right lower quadrant abdominal pain Procedures US ABDOMEN COMPLETE Negar Pinedo MD [address] [place] [address] Referral ID Status Reason Start Date Expiration Date V isits Requested Visits Authorized [id number] Not Required - RTA 12/15/2024 12/15/2025 1 1 Specialty Diagnoses / Procedures Referred By Contac t Referred To Contact CT IMAGING Diagnoses Malignant neoplasm of rectum (HCC) Procedures CT ABD/PEL W IVCON CT ABD & PELVIS W/CONTRAST Minerva Anderson MD [address] [place] [address] Phone: tel: fax: [place] [address] Referral ID Status Reason Start Date Expiration Date V isits Requested Visits Authorized [id number] Closed Auto-Generate d Referral 12/07/2024 01/06/2026 1 [...] BE BASED ON THE PRIMARY CLINICAL RECORDS. [employer] provides no warranty or guarantee of the accuracy or completeness of information in this document.
[2025-08-05 08:26] LABS: INR 1.04; Partial Thromboplastin Time 26.7 sec (22.3-36.2); Prothrombin Time 11.0 sec (9.0-11.6)
[2025-08-05] MEDS: CEFAZOLIN SODIUM 2 GM/50 ML D5W PREMIX IV (09:50)
--- NOTE | 2025-08-05 11:15 | PM.URSON ---
Urology Surgery Operative Note Operative Note Procedure Date: 08/05/25 Time Out Performed: yes Pre-op Diagnosis: 1. Left ureteral calculus. 2. Left renal calculus. Post-op Diagnosis: same as pre-op Procedures performed: 1. Cystoscopy. 2. Left rigid dilation of ureter. 3. The left ureteroscopy. 4. Thulium laser lithotripsy of left ureteral calculus. 5. Stone fragment basket extraction from the left ureter. 6. Left pyeloscopy. 7. Thulium laser lithotripsy of the left renal calculus. 8. Placement of 6 Mongolian variable length left ureteral stent. Anesthesia: GETA Primary Surgeon: Corey Singleton Complications: None Estimated blood loss (mL): 5 Findings: 1. Obstructing S4 ureteral calculus. #2 medial deviation of left ureter. #3 left lower pole renal calculus. Specimens: Left ureteral calculus fragments Drains: 6 Mongolian variable length left ureteral stent Indications for Procedures: this gentleman has recurrent left nephrolithiasis. He has a 5 mm stone in his left lower pole of his kidney and a 5 mm stone in the distal left ureter. He now presents for cystoscopy, ureteroscopic laser lithotripsy and probable left stent placement. He has signed an informed consent after risks were explained. Detailed description of Procedure: The patient was brought to the operating room and placed on the operating room table in the supine position. SCDs were placed on the lower extremities and turned on and functioning during the entire case. Timeout was done by all parties in the room. We all agreed upon the patient's identification and the planned procedures for this patient. Genn. anesthesia was then administered. The patient was then repositioned into the modified dorsal lithotomy position. All pressure points were satisfactorily padded. Genitalia were sterilely prepped and draped in usual fashion. I started by passing a 22 Mongolian Olympus cystoscope per urethra and into the bladder. Anterior urethra was normal. Prostatic urethra revealed by lobar hypertrophy. Panendoscopy in the bladder revealed no evidence of any tumors or stones. There was moderate trabeculation. While using fluoroscopy I thought I could see the stone which was at the S4 level. I then passed a Glidewire through the scope and up the ureter. It initially buckled when it hit the stone but then the wire continued on up into the kidney. There was medial deviation of the ureter up to the L3 area. I then used a 10 Mongolian rigid dilator and dilated the distal ureter. The scope was removed. I then passed a semirigid ureteroscope adjacent to the wire and into the left ureter. I arrived right at the stone. A 270 Angstrom laser fiber was passed and the thulium laser was used at 7 W fragmentation mode. The stone was cracked up into a few pieces. I then used a 0 tip nitinol basket and engaged the pieces and dumped them in the base of the bladder. After going up and down the distal ureter numerous times I verified that there were no stone pieces remaining. The ureteroscope was then removed. I then passed a 10/12 Mongolian ureteral access sheath over the wire and up the left ureter to the L5 position. Stylette and wire were removed. I then passed a flexible ureteroscope through the sheath and into the ureter. I ascended up the ureter and then went into the renal pelvis. I then scoped within the upper mid and lower pole calyces. The only stone that was identified was in the lower pole calyx. This was the one that was visible fluoroscopically. I then used the same laser fiber and the same laser and dusted the stone at 10 W of power. Upon completion there was no formed stone remaining. Fluoroscopically the stone was not visible. The scope was then removed. The wire was passed back up the sheath into the kidney and the sheath was removed. Cystoscope was backloaded over the wire and passed into the bladder and I then slid a 6 Mongolian variable length stent over the wire up to the left kidney. The wire was removed and there were good curls in the kidney and in the bladder. I then used the Attensityk evacuator to get all the stone pieces out from the base of the bladder. These were sent for stone analysis. The bladder was drained of its contents and the scope was then removed. The anesthetic was then reversed. He was then transferred to a [facility] bed and wheeled to PACU in stable condition.
[2025-08-05] MEDS: SOLIFENACIN SUCCINATE 10 MG TABLET PO (11:37)
[2025-08-05] MEDS: HEPARIN SODIUM (PORCINE) PF LOCK FLUSH 500 UNIT/5 ML SYRINGE 250 UNIT IV (12:45)
--- NOTE | 2025-08-05 13:07 | PC.NURSE ---
1250: pt ambulates to bathroom with SBA,pt voids without difficulty.
== END 2025-08-05 13:00 | disposition home or self-care (01) ==
LOC: SURGOUT 07:52
PROVIDERS: PCP Family Medicine; Visit Provider Urology
PROC: (CPT 52356; principal; 2025-08-05 09:00)
DX: N20.2 Calculus of kidney with calculus of ureter (principal); Z87.442 Personal history of urinary calculi; N32.89 Other specified disorders of bladder; N40.1 Benign prostatic hyperplasia with lower urinary tract symptoms; N52.9 Male erectile dysfunction, unspecified; R33.9 Retention of urine, unspecified; G47.33 Obstructive sleep apnea (adult) (pediatric); Z98.1 Arthrodesis status; Z86.711 Personal history of pulmonary embolism; M06.9 Rheumatoid arthritis, unspecified
CPT/HCPCS: 52356; 36415; 76000; 82365; 85610; 85730; 99999; J0131; J0690; J1100; J1642; J1885; J2250; J2371; J2405; J2704; J3010